=== PATIENT | male | born 1945 | race Caucasian/White ===

== ENCOUNTER 2020-11-09 14:00 | Outpatient (CLI) | payer MEDICARE, SELFPAY ==
--- NOTE | ~2020-11-09 | XR_ITS ---
XR chest 2V DATE: 11/09/2020 14:20 INDICATION: Cough. Chronic bronchitis. TECHNIQUE: 2 views COMPARISON: PA and lateral chest FINDINGS: Normal heart size. No hilar or mediastinal enlargement. There is mild infiltrate and/atelec tasis at the lung bases. The lungs are moderately hyperinflated. No pleural effusion or pulmonary vascular congestion or pneumothorax. IMPRESSION: Mild bibasilar infiltrate and/atelectasis Moderate hyperinflation Reviewed, dictated and finalized at location B.
== END 2020-11-09 14:01 | disposition home or self-care (01) ==
PROVIDERS: PCP Family Medicine; Visit Provider Nurse Practitioner Family
DX: R05 Cough (principal); R91.8 Other nonspecific abnormal finding of lung field
CPT/HCPCS: 71046

== ENCOUNTER 2020-11-19 15:19 | Outpatient (CLI) | payer MEDICARE, SELFPAY ==
--- NOTE | ~2020-11-19 | XR_ITS ---
EXAMINATION: XR chest 2V DATE: 11/19/2020 15:34 INDICATION: Cough. TECHNIQUE: Frontal and lateral views of the chest were obtained. COMPARISON: Chest 2 views 11/09/2020, CT abdomen and pelvis 06/11/2017 FINDINGS: There is a large hiatal hernia. There is mild atelectasis in the lower lung zones. No pleur al effusion or pneumothorax. The heart size is normal. Surgical clips in the right upper quadrant are likely from cholecystectomy. IMPRESSION: 1. Mild atelectasis in the lower lung zones. 2. Large hiatal hernia. Reviewed, dictated and finalized at location A.
== END 2020-11-19 15:20 | disposition home or self-care (01) ==
LOC: ANHIMG 15:22
PROVIDERS: PCP Family Medicine; Visit Provider Nurse Practitioner Family
DX: R05 Cough (principal); K44.9 Diaphragmatic hernia without obstruction or gangrene
CPT/HCPCS: 71046

== ENCOUNTER 2021-07-08 01:12 | Day surgery (SDC) | payer MEDICARE, SELFPAY ==
[2021-06-24 14:54] VITALS: BMI 32.8
[2021-07-08 09:43] VITALS: BP 161/85; RESP 18; TEMP 36.3; BMI 34.0
[2021-07-08 09:46] VITALS: BP 161/85; PULSE 107; RESP 18; TEMP 36.3; O2SAT 96
[2021-07-08] MEDS: LACTATED RINGERS 1,000 ML 150 ML IV CONT (10:00)
--- NOTE | 2021-07-08 10:00 | WPDHPUPDATE1 ---
History and Physical Update Update Date/Time: 07/08/21 10:00 History and Physical has been reviewed, including an updated exam of the patient. There are NO changes in the patient's condition. Risks, benefits, and alternatives have been discussed and questions answered. Patient agrees to proceed with procedure.
--- NOTE | 2021-07-08 10:32 | WPDANESEPPF ---
Anes - Initial Pre Proc Eval Procedure: Operation Date: 07/08/21 10:45 Proposed Procedures p Esophagogastroduodenoscopy - John Ramirez MD Date/Time: 07/08/21 10:32 Surgeon: John Ramirez MD Pre Op Diagnosis: GERD Patient Data Age: 75 Gender: M Height: 1.85 m Weight: 117 kg Last Vital Signs Temp 97.4 F L 07/08/21 09:46 Pulse 107 H 07/08/21 09:46 Resp 18 07/08/21 09:46 BP 161/85 H 07/08/21 09:46 Pulse Ox 96 07/08/21 09:46 Allergies Allergy/AdvReac Type Severity Reaction Status Date / Time Iodinated Contrast Media Allergy Unknown Unknown Verified 06/24/21 14:47 NSAIDS (Non-Steroidal Allergy Unknown Unknown Verified 06/24/21 14:47 Anti-Inflamma Home Medications Medication Instructions Recorded Confirmed Type albuterol sulfate 90 mcg/actuation 1 inhalation INHALATION Q4H PRN 09/25/19 07/08/21 Rx aerosol inhaler #6.7 gm apixaban 5 mg tablet 5 mg PO BID #60 tablet 09/25/19 06/24/21 Rx budesonide-formoterol HFA 160 2 puff INHALATION Q12H #10.2 gm 02/15/21 06/24/21 Rx mcg-4.5 mcg/actuation aerosol inhaler hydrocortisone 2.5 % topical 1 applic TOPICAL BID-TID PRN 04/28/21 06/24/21 Rx ointment #28.35 gm cholecalciferol (vitamin D3) 25 25 mcg PO DAILY 06/07/21 06/24/21 History mcg (1,000 unit) capsule folic acid 1 mg tablet 1 mg PO DAILY 06/07/21 06/24/21 History multivitamin 1 tablet PO DAILY 06/07/21 06/24/21 History pantoprazole 40 mg tablet,delayed 40 mg PO BID #180 tablet 06/16/21 06/24/21 Rx release Patient hx anesthesia problems: none Family hx anesthesia problems: none Results Review: All pre-operative results and documents have been reviewed as part of the pre-operative evaluation. 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 Informed Consent: The patient's anesthetic plan and its attendant risks and benefits were discussed with the patient/family/POA. Questions were solicited and answers provided to the satisfaction of the patient/family/POA.
[2021-07-08] MEDS: BENZOCAINE (*SP) 60 ML SPRAY CAN (HURRICAINE) 1 SPRAY MUCOUS MEM (10:47)
[2021-07-08 11:01] VITALS: BP 101/56; PULSE 79; RESP 21; O2SAT 97
[2021-07-08 11:11] VITALS: BP 109/68; PULSE 73; RESP 20; O2SAT 98
[2021-07-08 11:21] VITALS: BP 142/80; PULSE 69; RESP 13; O2SAT 100
== END 2021-07-08 11:54 | disposition home or self-care (01) ==
PROVIDERS: PCP Family Medicine; Visit Provider Internal Medicine Gastroenterology
PROC: 0DJ08ZZ Inspection of Upper Intestinal Tract, Via Natural or Artificial Opening Endoscopic (ICD-10-PCS; CPT 43235; principal; 2021-07-08 10:45)
DX: K21.9 Gastro-esophageal reflux disease without esophagitis (principal); K44.9 Diaphragmatic hernia without obstruction or gangrene; Q39.4 Esophageal web; K31.7 Polyp of stomach and duodenum; Z79.51 Long term (current) use of inhaled steroids; Z79.01 Long term (current) use of 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s; E66.9 Obesity, unspecified; Z68.34 Body mass index [BMI] 34.0-34.9, adult
CPT/HCPCS: 43450; 43251; 88305; J2704; J7120

== ENCOUNTER 2021-12-08 11:24 | Outpatient (CLI) | payer MEDICARE, SELFPAY ==
--- NOTE | ~2021-12-08 | CT_ITS ---
EXAMINATION: CT abdomen pelvis wo con DATE: 12/08/2021 12:47 INDICATION: Right lower quadrant abdominal pain. Diarrhea. TECHNIQUE: Computed tomography (CT) of the abdomen and pelvis was performed without intravenous contr ast (patient contrast allergy). Automated exposure control and iterative reconstruction technique fredi kelly. Exam dose: 1316.66 mGy-cm total exam DLP. COMPARISON: 06/2017 CT abdomen pelvis FINDINGS: There is discoid atelectasis and/or scarring at the lung bases, most prominent in the poste rior right lower lobe no pulmonary infiltrate or consolidation. Normal heart size. No pericardial or pleural effusion. Large sliding hiatal hernia. Status post cholecystectomy. Occasional hepatic and splenic calcified granulomas consistent with old granulomatous disease. No hep atic, splenic, pancreatic, adrenal or renal space-occupying mass lesion is detected. No urinary tract calculus or hydroureteronephrosis. There is normal caliber of the abdominal aorta, mild atherosclerotic calcification of the abdominal a pedro as well as iliac arteries. There is a left common and external iliac vein stent and an IVC filte r. No intraperitoneal or retroperitoneal or pelvic mass lesion or adenopathy or ascites. There is prostate enlargement. The urinary bladder is unremarkable. Status post appendectomy. Diverticulosis of left and right colon; no CT evidence of diverticulitis. N o bowel obstruction, bowel wall thickening, pneumatosis or intraperitoneal free air. Small fat-containing umbilical hernia. 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 Severe degenerative disc disease at L5-S1. Moderately severe degenerative disc disease and mild retrolisthesis at L1-2. No suspicious osteolytic or osteoblastic lesions. IMPRESSION: Status post cholecystectomy. 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 Reviewed, dictated and finalized at location B. IMPRESSION: Status post cholecystectomy. Large hiatal hernia IVC filter Left common and external iliac vein stent Prostate enlargement Diverticulosis of left and right colon; no evidence of diverticulitis Bilateral L5 pars interarticularis defects with associated grade 2 anterolisthe sis at L5-S1 Moderately severe degenerative disc disease at L1-2, severe degenerative diseas e at L5-S1
[2021-12-08 12:14] LABS: Basophils Percent Auto 0.6 % (0.2-1.2); Eosinophils Absolute Auto 0.1 K/mm3 (0-0.3); Eosinophils Percent Auto 2.2 % (0-4.4); Hematocrit 36.6 % (42.0-52.0); Hemoglobin 10.9 g/dL (14.0-18.0); Immature Granulocyte Absolute 0.01 K/mm3 (0.00-0.031); Immature Granulocyte Percent A 0.2 % (0-0.5); Lymphocytes Absolute Auto 1.36 K/mm3 (0.9-3.2); Mean Corpuscular HGB Conc 29.8 g/dl (32-36); Mean Corpuscular Hemoglobin 26.5 pg (26-34); Mean Corpuscular Volume 89.1 fl (80-100); Mean Platelet Volume 12.1 fl (7.4-10.4); Monocytes Absolute Auto 0.8 K/mm3 (0.1-0.6); Monocytes Percent Auto 15.5 % (2.6-8.5); Neutrophils Absolute Auto 2.7 K/mm3 (1.3-6.7); Neutrophils Percent Auto 54.5 % (45.5-73.1); Platelet Count Result 302 k/mm3 (150-375); Red Blood Count 4.11 M/mm3 (4.6-6.20); Red Cell Distribution Width 17.3 % (11.5-14.5)
[2021-12-08 12:23] LABS: Alanine Aminotransferase 30 U/L (6-50); Albumin Level 4.7 g/dL (3.5-5.1); Alkaline Phosphatase 83 U/L (38-126); Amylase 80 U/L (30-110); Anion Gap 6 mmol/L (8-16); Aspartate Amino Transferase 36 U/L (17-59); Blood Urea Nitrogen 17 mg/dL (9-20); Calcium 9.3 mg/dL (8.4-10.2); Carbon Dioxide 27 mmol/L (22-30); Chloride 104 mmol/L (98-107); Estimated Glomerular Filt Rate 54; Glucose 117 mg/dL (65-110); Lipase 251 U/L (23-300); Potassium 4.7 mmol/L (3.4-5.0); Sodium 137 mmol/L (137-145)
== END 2021-12-08 11:25 | disposition home or self-care (01) ==
PROVIDERS: PCP Family Medicine; Visit Provider Nurse Practitioner Family
DX: D64.9 Anemia, unspecified (principal); R10.31 Right lower quadrant pain; Z90.49 Acquired absence of other specified parts of digestive tract; Z95.828 Presence of other vascular implants and grafts; N40.0 Benign prostatic hyperplasia without lower urinary tract symptoms; M53.86 Other specified dorsopathies, lumbar region; M43.17 Spondylolisthesis, lumbosacral region; M51.36 Other intervertebral disc degeneration, lumbar region
CPT/HCPCS: 36415; 74176; 80053; 82150; 83690; 85025

== ENCOUNTER 2022-01-25 09:38 | Outpatient (CLI) | payer MEDICARE, SELFPAY ==
--- NOTE | 2022-01-25 11:30 | NEURO_ITS ---
Impression: # Complains of numbness. # Severe motor and sensory neuropathy. # Needle/EMG revealed minimal discrete motor unit potentials but no fibs of myotonia. Nerve Conduction Studies Anti Sensory Summary Table Stim Site NR Peak (ms) P-T Amp (?V) Site1 Site2 Delta-P (ms) Dist (cm) Regan (m/s) Left Sup Fibular Anti Sensory (Ant Lat Mall) NO RESPONSE 14 cm NR 14 cm Ant Lat Mall 16.0 Right Sup Fibular Anti Sensory (Ant Lat Mall) NO RESPONSE 14 cm NR 14 cm Ant Lat Mall 16.0 Left Sural Anti Sensory (Lat Mall) NO RESPONSE Calf NR Calf Lat Mall 16.0 Right Sural Anti Sensory (Lat Mall) NO RESPONSE Calf NR Calf Lat Mall 16.0 Motor Summary Table Stim Site NR Onset (ms) O-P Amp (mV) Site1 Site2 Delta-0 (ms) Dist (cm) Regan (m/s) Left Peroneal Motor (Vastus Med) NO RESPONSE Ankle NR Popit NR Right Peroneal Motor (Vastus Med) NO RESPONSE Ankle NR Popit NR Left Tibial Motor (Abd Castro Brev) NO RESPONSE Ankle NR Knee NR Right Tibial Motor (Abd Castro Brev) NO RESPONSE Ankle NR Knee NR F Wave Studies NR F-Lat (ms) L-R F-Lat (ms) Left Peroneal (Mrkrs) (EDB) NO RESPONSE NR Right Peroneal (Mrkrs) (EDB) DISPERSED RESPONSE NR Left Tibial (Mrkrs) (Abd Hallucis) NO RESPONSE NR Right Tibial (Mrkrs) (Abd Hallucis) NO RESPONSE NR EMG Side Muscle Nerve Root Ins Act Fibs Amp Dur Recrt Comment Right AntTibialis Dp Br Fibular L4-5 Nml Nml Decr Nml Reduced Right Gastroc Tibial S1-2 Nml Nml Decr Nml Reduced Right Fibularis Long Sup Br Fibular L5-S1 Nml Nml Decr Nml Reduced Right Flex Dig Long Tibial L5-S2 Nml Nml Decr Nml Reduced Right Ext Dig Brev Dp Br Fibular L5, S1 Nml Nml Decr Nml Reduced Left AntTibialis Dp Br Fibular L4-5 Nml Nml Decr Nml Reduced Left Gastroc Tibial S1-2 Nml Nml Decr Nml Reduced Left Fibularis Long Sup Br Fibular L5-S1 Nml Nml Decr Nml Reduced Left Flex Dig Long Tibial L5-S2 Nml Nml Decr Nml Reduced MTDD
== END 2022-01-25 09:39 | disposition home or self-care (01) ==
PROVIDERS: PCP Family Medicine; Visit Provider Physician Assistant Medical
DX: R20.0 Anesthesia of skin (principal); G62.9 Polyneuropathy, unspecified
CPT/HCPCS: 95886; 95910

== ENCOUNTER 2022-06-16 16:06 | Outpatient (CLI) | payer MEDICARE, SELFPAY ==
--- NOTE | ~2022-06-16 | XR_ITS ---
XR hip RT min 3V w AP pelvis DATE: 06/16/2022 16:35 INDICATION: Right hip pain TECHNIQUE: AP, lateral and cross table lateral views of the right hip. AP pelvis. COMPARISON: None FINDINGS: No pelvic fracture or bone destruction. No fracture or dislocation, periosteal reaction or avascular necrosis or bone destruction of hips. The pubic symphysis and sacroiliac joints are normal. IVC filter is noted. There is a stent of the left common and external iliac veins. IMPRESSION: IVC filter Left common and external iliac vein stent No significant abnormality of the pelvis or right hip Reviewed, dictated and finalized at location L. 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
== END 2022-06-16 16:07 | disposition home or self-care (01) ==
PROVIDERS: PCP Family Medicine; Visit Provider Family Medicine
DX: M25.551 Pain in right hip (principal)
CPT/HCPCS: 73502

== ENCOUNTER 2022-10-07 00:35 | Day surgery (SDC) | payer MEDICARE, SELFPAY ==
[2022-10-06 17:25] VITALS: BMI 28.3
[2022-10-07] VITALS (8 sets, daily range): BP systolic 121–134; BP diastolic 59–75; PULSE 65–81; RESP 14–20; TEMP 36.6; O2SAT 94–98; BMI 28.7
[2022-10-07 09:54] LABS: Hematocrit 37.7 % (42.0-52.0); Hemoglobin 11.8 g/dL (14.0-18.0); Immature Granulocyte Absolute 0.01 K/mm3 (0.00-0.031); Immature Granulocyte Percent A 0.6 % (0-0.5); Lymphocytes Absolute Auto 0.32 K/mm3 (0.9-3.2); Lymphocytes Percent Auto 20.4 % (18.3-44.2); Mean Corpuscular HGB Conc 31.3 g/dl (32-36); Mean Corpuscular Hemoglobin 28.5 pg (26-34); Mean Corpuscular Volume 91.1 fl (80-100); Mean Platelet Volume 11.5 fl (7.4-10.4); Monocytes Percent Auto 0.6 % (2.6-8.5); Neutrophils Absolute Auto 1.2 K/mm3 (1.3-6.7); Neutrophils Percent Auto 78.4 % (45.5-73.1); Platelet Count Result 308 k/mm3 (150-375); Red Blood Count 4.14 M/mm3 (4.6-6.20); Red Cell Distribution Width 16.2 % (11.5-14.5)
[2022-10-07 10:02] LABS: White Blood Count 1.6 K/mm3 (4.5-10.0)
[2022-10-07 10:04] LABS: Anion Gap 10 mmol/L (8-16); Blood Urea Nitrogen 21 mg/dL (9-20); Calcium 9.3 mg/dL (8.4-10.2); Carbon Dioxide 27 mmol/L (22-30); Chloride 103 mmol/L (98-107); Estimated CRCL calculation 48 ml/min; Estimated Glomerular Filt Rate 54; Glucose 165 mg/dL (65-110); Sodium 140 mmol/L (137-145)
--- NOTE | 2022-10-07 11:56 | P.PCNCC_ITS ---
Cardiac Cath Procedure Note Date of procedure:: 10/07/22 Performing physician:: Reggie Jackson MD Indication:: previous episodes of intermittent chest pain abnormal nuclear stress test Brief clinical history:: this is a 76-year-old patient with a history of right bundle branch block and PVCs who has been experiencing intermittent chest pain couple of months ago. A nuclear stress test was somewhat abnormal prompting recommendation for angiography. Procedure Procedure performed:: Coronary angiography left ventriculography Angio-Seal to the right femoral artery Sedation/Medication given:: fentanyl 50 mg Versed 2 mg case start time 11:35 a.m. case end time 11:52 a.m. sedation provided by Donna Woo RN, trained observer Access site:: right femoral artery Estimated blood loss:: 20 cc Procedure note:: patient was brought to the cardiac catheterization lab in the postabsorptive Condition where the right femoral triangle was prepped draped in the usual fashion. the patient received 1% lidocaine infiltrated locally. Using the modified Seldinger technique the right femoral artery was punctured and a 5 Fren ch vascular sheath was placed. The patient did receive Benadryl and prednisone yesterday and this morning preoperatively because of contrast allergy. Following arterial access being achieved a 5 [place] Islander FL4 catheter was used to engage and inject the left coronary artery in multiple projections and then a 5 [place] JR4 catheter was used to engage inject the right coronary artery in orthogonal projections. After this a 5 [place] pigtail catheter was used to measure left-sided hemodynamics and to perform a left ventriculogram in the STEPHEN projection. Lastly the catheters were removed an angiogram was the femoral artery through the sheath after which a 6 [place]er Angio-Seal device was deployed with a good hemostatic result. 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 Findings:: Hemodynamics: Central aortic pressure was 126 over 56 left ventricle 126/0 end-diastolic there is no gradient on pullback across the aortic valve. Left ventricle: The LV is normal in size there is concentric hypertrophy identified. Contractility is hyperdynamic with an ejection fraction I would visually estimate to be 75%. There were no regional wall motion abnormalities. The left main coronary artery is large in caliber and widely patent the left anterior descending is a moderate caliber artery extending down to the apex. The midportion of the LAD has minimal luminal irregularities but there are no flow-limiting lesions seen throughout the course of the LAD or its branches. The circumflex is a moderate caliber artery giving rise to the marginal branches the circumflex is angiographically unremarkable. The right coronary artery is large caliber and dominant to the posterior cir culation. The right coronary bifurcates high in the 2nd portion of the artery but otherwise is angiographically unremarkable. Conclusion:: 1. Right coronary dominant circulation with no angiographically severe significant coronary disease minimal plaquing was seen in the midportion of the LAD 2. left ventricular hypertrophy with hyperdynamic systolic contractility 3. based on these findings the chest pain symptoms appear to be noncardiac and the nuclear stress test appears to be a false-positive. Reggie Jackson MD FACC
== END 2022-10-07 14:55 | disposition home or self-care (01) ==
PROVIDERS: PCP Family Medicine; Visit Provider Specialist
PROC: 4A023N7 Measurement of Cardiac Sampling and Pressure, Left Heart, Percutaneous Approach (ICD-10-PCS; CPT 93452; principal; 2022-10-07 10:30)
DX: R94.39 Abnormal result of other cardiovascular function study (principal); R07.89 Other chest pain; I45.10 Unspecified right bundle-branch block; I49.3 Ventricular premature depolarization; I13.10 Hypertensive heart and chronic kidney disease without heart failure, with stage 1 through stage 4 chronic kidney disease, or unspecified chronic kidney disease; N18.9 Chronic kidney disease, unspecified; K21.9 Gastro-esophageal reflux disease without esophagitis; J42 Unspecified chronic bronchitis; Z79.01 Long term (current) use of 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s; Z79.51 Long term (current) use of inhaled steroids; G47.33 Obstructive sleep apnea (adult) (pediatric)
CPT/HCPCS: 36415; 80048; 85025; 93458; C1760; C1887; C1894; G0269; J1644; J2250; J3010

== ENCOUNTER 2024-01-03 17:27 | Inpatient (IN) | payer MEDICARE, SELFPAY ==
[2024-01-03] VITALS (8 sets, daily range): BP systolic 149–167; BP diastolic 76–84; PULSE 75–82; RESP 15–17; TEMP 37–37.1; O2SAT 98–100; BMI 29.7
--- NOTE | ~2024-01-03 | CT_ITS ---
EXAMINATION: CT abdomen pelvis wo con DATE: 01/03/2024 18:36 INDICATION: LLQ pain TECHNIQUE: Computed tomography (CT) of the abdomen and pelvis was performed without intravenous contr ast. Automated exposure control and iterative reconstruction technique were employed. The dose-length product was 982.15 mGy-cm. COMPARISON: 12/08/2021. FINDINGS: Lower thorax: Linear bibasilar opacities and groundglass opacities. Coronary artery calcifications. M itral and aortic valve calcification. Liver: Normal. Biliary/Gallbladder: Gallbladder is absent. No bile duct dilation. Pancreas: No mass or duct dilation. Spleen: Normal. Adrenals:No mass. Kidneys: No suspicious mass, obstructing stone, or hydronephrosis. GI tract: Large hiatal hernia. Short segment pericolonic wall thickening and surrounding stranding at the hepatic flexure, with an inflamed diverticulum. Mild peridiverticular inflammatory stranding in the mid sigmoid colon in the mid abdomen, to the left of midline. No abscess or free air. No small or large bowel dilation. Status post appendectomy. Mesentery/Peritoneum: No ascites, mass, or free air. Abdominal varices. IVC filter. Retroperitoneum: No mass. Atherosclerotic abdominal aortic and/or arterial calcifications. Left commo n and external iliac vein stent. Pelvis: The urinary bladder is partially distended. Enlarged prostate. Soft Tissues: Soft tissues and body wall unremarkable. Bones: No acute osseous finding. L5-S1 anterolisthesis secondary to bilateral pars defects. IMPRESSION: Bibasilar pulmonary opacities likely representing atelectasis/scar. Infection is not excluded. Multifocal, but otherwise uncomplicated appearing diverticulitis involving the hepatic flexure and mi d sigmoid. Inflammatory changes are more pronounced at the hepatic flexure. Reviewed, dictated and finalized at location K. IMPRESSION: Bibasilar pulmonary opacities likely representing atelectasis/scar. Infection i s not excluded. Multifocal, but otherwise uncomplicated appearing diverticulitis involving the hepatic flexure and mid sigmoid. Inflammatory changes are more pronounced at th e hepatic flexure.
[2024-01-03 18:10] LABS: Hemoglobin 13.2 g/dL (14.0-18.0); Mean Corpuscular HGB Conc 32.2 g/dl (32-36); Mean Corpuscular Hemoglobin 28.9 pg (26-34); Mean Corpuscular Volume 89.9 fl (80-100); Mean Platelet Volume 11.9 fl (7.4-10.4); Platelet Count Result 185 k/mm3 (150-375); Red Blood Count 4.56 M/mm3 (4.6-6.20); Red Cell Distribution Width 16.4 % (11.5-14.5)
[2024-01-03 18:13] LABS: Add Urine Microscopic? YES; Appearance Urine Clear (Clear); Bacteria Urine None Seen /hpf; Bilirubin Urine Negative (Negative); Blood Urine Negative (Negative); Color Urine Yellow (Yellow); Glucose Urine UA Negative (Negative); Ketones Urine Trace mg/dL (Negative); Leukocyte Esterase Ur Negative LEU/UL (Negative); Nitrate Urine Negative (Negative); Non Pathogenic Casts 0-2; Protein Urine Trace mg/dL (Negative); RBC Urine 0-2 /hpf (0-2); Specific Grav Ur 1.021 (1.001-1.035); Squamous Epithelial Cell Urine None Seen /hpf (Few); WBC Urine 0-5 /hpf (0-3); pH Urine 6.5 (5.0-9.0)
[2024-01-03 18:20] LABS: Alanine Aminotransferase 90 U/L (6-50); Albumin Level 4.5 g/dL (3.5-5.1); Alkaline Phosphatase 109 U/L (38-126); Anion Gap 8 mmol/L (4-12); Aspartate Amino Transferase 102 U/L (17-59); Bilirubin,Total 0.8 mg/dL (0.2-1.3); Blood Urea Nitrogen 16 mg/dL (9-20); Calcium 9.2 mg/dL (8.4-10.2); Carbon Dioxide 27 mmol/L (22-30); Chloride 104 mmol/L (98-107); Estimated CRCL calculation 53 ml/min; Estimated Glomerular Filt Rate > 60; Glucose 107 mg/dL (65-110); Lipase 134 U/L (23-300); Potassium 4.2 mmol/L (3.4-5.0); Sodium 139 mmol/L (137-145)
[2024-01-03 18:36] LABS: White Blood Count 1.8 K/mm3 (4.5-10.0)
[2024-01-03] MEDS: SODIUM CHLORIDE 0.9% IV 1,000 ML 999 ML IV CONT (18:38)
[2024-01-03] MEDS: MORPHINE SULFATE (*CRX) 4 MG/ML INJ 2 MG IV PUSH (18:38)
[2024-01-03 18:41] LABS: Lymphocytes Absolute Manual 0.73 K/mm3 (1.1-4.5); Monocytes Absolute Manual 0.12 K/mm3 (0.1-0.90); Monocytes Percent Manual 7 % (3-9); Neutrophils Percent Manual 52 % (46-73); Total Cells Counted 100
[2024-01-03 18:42] LABS: Anisocytosis 1+; Platelet Estimate Adequate (Adequate); Schistocytes None Seen
--- NOTE | 2024-01-03 19:33 | ED.ABDPAIN ---
HPI - Abdominal Pain General Chief Complaint: Abdominal Pain Stated Complaint: abd pain, fatigue Time Seen by Provider: 01/03/24 17:59 History of Present Illness HPI narrative: Patient is a 78-year-old male who presents ER with abdominal pain. Aching over the last 5 days. No fevers or chills or sweats. Denies diarrhea. Has history of diverticulitis. No blood in stool. No vomiting. Reports episode of low blood pressure and dizziness yesterday. Related Data Home Medications Medication Instructions Recorded Confirmed cholecalciferol (vitamin D3) 25 25 mcg PO QPM 06/07/21 11/28/23 mcg (1,000 unit) capsule folic acid 400 mcg tablet 0.4 mg PO DAILY 03/15/22 11/28/23 bimatoprost 0.01 % eye drops 1 drp EACH EYE HS 06/16/22 11/28/23 (Genieigan) Allergies Allergy/AdvReac Type Severity Reaction Status Date / Time Iodinated Contrast Media Allergy Intermediate Hives Verified 01/03/24 17:40 NSAIDS (Non-Steroidal AdvReac Unknown Unknown Verified 01/03/24 17:40 Anti-Inflamma Review of Systems Review of Systems: All systems reviewed & are unremarkable except as noted in HPI and below Constitutional: Constitutional: Denies chills, Reports fatigue and Denies fever(s) ENT: Reports system reviewed and no additional complaints, except as documented Cardiovascular: Cardiovascular: Reports no additional cardiovascular complaints Respiratory: Respiratory: Reports no additional respiratory complaints Gastrointestinal: Gastrointestinal: Reports abdominal pain, Reports constipation, Denies diarrhea, Denies nausea and Denies vomiting PMFSH Past Medical History Medical History Acquired hypercoagulable state BMI 30.0-30.9,adult Bursitis of right hip Cholecystectomy planned COPD (chronic obstructive pulmonary disease) COVID-19 Encounter for removal of skin lesion Exposure to COVID-19 virus Impaired functional mobility, balance, and endurance Mitral valve regurgitation Need for lipid screening Polyneuropathy Pronation of foot Raised seborrheic keratosis 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 Right bundle branch block Screening for prostate cancer Seborrheic keratoses, inflamed Sore in nose Surgical History Surgical History History of appendectomy Family History Family History Father Atherosclerosis Dementia Mother Dementia Sibling Dementia Acute myocardial infarction Other Family history of mental disorder Social History Social History Smoking status: Never smoker Second hand tobacco smoke exposure: Yes Alcohol intake: current Drinks per week: 1 Alcohol use details: 1/month Substance use: never Substance use type: does not use Do You Feel Safe in your Home?: Yes Lack of Transportation: No Lack of Food: Never True Current Housing: I Have Housing Concerned About Future Housing: No Difficulty Paying Gas/Electric Bills: No Difficulty Paying for Meds: No Currently Unemployed: No Education: Master's Degree or Higher Difficulty w/ Childcare or Family Care: No Living arrangements: with family Occupation/Education: retired 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 HEAD: Normocephalic, atraumatic. ENT: Mucous membranes moist. NECK: Supple. CHEST: Clear to auscultation. No respiratory distress. HEART: Regular rate and rhythm. Normal peripheral pulses. ABDOMEN: Soft, mild diffuse tenderness, nondistended. EXTREMITIES: Normal range of motion. No edema. SKIN: Warm, dry, no rash. NEURO: Alert and darshan
--- NOTE | 2024-01-03 20:10 | PM.IMHP ---
H&P: HPI History of Present Illness Date/Time: 01/03/24 20:10 Chief Complaint: abdominal pain Narrative: THIS IS A 78-YEAR-OLD MALE WITH PAST MEDICAL HISTORY SIGNIFICANT FOR RECURRENT DVT, ON CHRONIC ANTICOAGULATION, OBSTRUCTIVE SLEEP APNEA, COPD. PATIENT COMES TO THE EMERGENCY ROOM DUE TO LEFT LOWER QUADRANT PAIN FOR THE LAST 3-4 DAYS, HAS HAD LOOSE STOOLS, NO BRIGHT RED BLOOD PER RECTUM OR MELENA, NO HEMATEMESIS, NO COFFEE-GROUND EMESIS, NO NAUSEA, NO VOMITING HAS HAD GOOD PER ORALLY INTAKE, DENIES ANY FEVERS RIGORS OR CHILLS. PAIN IS CRAMPING IN NATURE RATES IT AT 8 OF 10 IN INTENSITY RELIEVED BY PAIN MEDICATION. PRELIMINARY WORKUP WAS SIGNIFICANT FOR CT OF ABDOMEN AND PELVIS WITH DIVERTICULITIS CBC WAS SIGNIFICANT FOR A WBC OF 1.2. PATIENT HAS BEEN ADMITTED FOR FURTHER EVALUATION MANAGEMENT AND TREATMENT. EXAMINATION: CT abdomen pelvis wo con DATE: 01/03/2024 18:36 INDICATION: LLQ pain TECHNIQUE: Computed tomography (CT) of the abdomen and pelvis was performed without intravenous contrast. Automated exposure control and iterative reconstruction technique were employed. The dose-length product was 982.15 mGy-cm. COMPARISON: 12/08/2021. FINDINGS: Lower thorax: Linear bibasilar opacities and groundglass opacities. Coronary artery calcifications. Mitral and aortic valve calcification. Liver: Normal. Biliary/Gallbladder: Gallbladder is absent. No bile duct dilation. Pancreas: No mass or duct dilation. Spleen: Normal. Adrenals:No mass. Kidneys: No suspicious mass, obstructing stone, or hydronephrosis. GI tract: Large hiatal hernia. Short segment pericolonic wall thickening and surrounding stranding at the hepatic flexure, with an inflamed diverticulum. Mild peridiverticular inflammatory stranding in the mid sigmoid colon in the mid abdomen, to the left of midline. No abscess or free air. No small or large bowel dilation. Status post appendectomy. Mesentery/Peritoneum: No ascites, mass, or free air. Abdominal varices. IVC filter. Retroperitoneum: No mass. Atherosclerotic abdominal aortic and/or arterial calcifications. Left common and external iliac vein stent. Pelvis: The urinary bladder is partially distended. Enlarged prostate. Soft Tissues: Soft tissues and body wall unremarkable. Bones: No acute osseous finding. L5-S1 anterolisthesis secondary to bilateral pars defects. IMPRESSION: Bibasilar pulmonary opacities likely representing atelectasis/scar. Infection is not excluded. Multifocal, but otherwise uncomplicated appearing diverticulitis involving the hepatic flexure and mid sigmoid. Inflammatory changes are more pronounced at the hepatic flexure. 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
[2024-01-03] MEDS: PIPERACILLN/TAZ 3.375GM/NS50ML 3.375 GM/50 ML BAG IVPB (20:37)
[2024-01-03 20:49] LABS: Lactic Acid Reflex 1.5 mmol/L (0.7-2.0)
--- NOTE | 2024-01-03 21:00 | ADMGEN ---
This patient, Russ Kern, was admitted to [facility] Surg Room 304-02. Patient/family oriented to hospital policies and general routines including ID bracelet, bed and alarms, visiting hours, pain management, procedures, bathroom and other care routines, personal items, smoking policy, room service/diet, and visiting hours. Information on how to activate the Rapid Response Team has been discussed. Patient/Family are encouraged to report perceived risks to care and to ask questions if they do not understand what they are told or what they should do.
[2024-01-04 05:21] VITALS: BP 116/70; PULSE 77; RESP 18; TEMP 37.1; O2SAT 96
[2024-01-04] MEDS: PIPERACILLN/TAZ 3.375GM/NS50ML 3.375 GM/50 ML BAG IVPB ×4 (06:36→23:23)
[2024-01-04] MEDS: PANTOPRAZOLE 40 MG TABLET PO (09:02)
[2024-01-04] MEDS: APIXABAN 5 MG TABLET PO ×2 (09:02→20:09)
[2024-01-04 09:07] LABS: Basophils Percent Auto 0.5 % (0.2-1.2); Eosinophils Percent Auto 1.5 % (0-4.4); Hematocrit 39.1 % (42.0-52.0); Hemoglobin 12.5 g/dL (14.0-18.0); Immature Granulocyte Absolute 0.06 K/mm3 (0.00-0.031); Immature Granulocyte Percent A 3.1 % (0-0.5); Lymphocytes Absolute Auto 0.71 K/mm3 (0.9-3.2); Lymphocytes Percent Auto 36.6 % (18.3-44.2); Mean Corpuscular Hemoglobin 28.7 pg (26-34); Mean Corpuscular Volume 89.7 fl (80-100); Mean Platelet Volume 12.4 fl (7.4-10.4); Monocytes Absolute Auto 0.3 K/mm3 (0.1-0.6); Monocytes Percent Auto 13.4 % (2.6-8.5); Neutrophils Absolute Auto 0.9 K/mm3 (1.3-6.7); Neutrophils Percent Auto 44.9 % (45.5-73.1); Platelet Count Result 168 k/mm3 (150-375); Red Blood Count 4.36 M/mm3 (4.6-6.20); Red Cell Distribution Width 16.4 % (11.5-14.5)
[2024-01-04 09:20] LABS: Alanine Aminotransferase 73 U/L (6-50); Albumin Level 3.7 g/dL (3.5-5.1); Alkaline Phosphatase 102 U/L (38-126); Anion Gap 8 mmol/L (4-12); Aspartate Amino Transferase 48 U/L (17-59); Bilirubin,Total 1.4 mg/dL (0.2-1.3); Blood Urea Nitrogen 13 mg/dL (9-20); Carbon Dioxide 26 mmol/L (22-30); Chloride 104 mmol/L (98-107); Estimated CRCL calculation 53 ml/min; Estimated Glomerular Filt Rate > 60; Glucose 101 mg/dL (65-110); Potassium 4.1 mmol/L (3.4-5.0); Sodium 138 mmol/L (137-145)
[2024-01-04 09:31] LABS: White Blood Count 1.9 K/mm3 (4.5-10.0)
[2024-01-04 14:00] VITALS: BP 109/54; PULSE 68; RESP 14; TEMP 36.7; O2SAT 97
--- NOTE | 2024-01-04 14:37 | PM.IMPN ---
Progress Note: A&P Assessment and Plan (1) Diverticulitis: Code(s): K57.92 - Diverticulitis of intestine, part unspecified, without perforation or abscess without bleeding Status: Acute Assessment and Plan: - receiving Zosyn - Blood cultures no growth to date. - encourage hydration - tolerating food well. (2) Chronic leukopenia: Code(s): D72.819 - Decreased white blood cell count, unspecified Status: Chronic Assessment and Plan: - WBC 1.9. 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 type: unspecified Qualified Code(s): J43.9 - Emphysema, unspecified Code(s): J44.9 - Chronic obstructive pulmonary disease, unspecified Status: Acute Assessment and Plan: -breathing treatments as needed (5) Chronic kidney disease, stage 3a: Code(s): N18.31 - Chronic kidney disease, stage 3a Status: Acute Assessment and Plan: - improving 01/04/24: BUN 13, Creatinine 1.10, & GFR >60 (6) QAMAR (obstructive sleep apnea): Code(s): G47.33 - Obstructive sleep apnea (adult) (pediatric) Status: Acute Assessment and Plan: -CPAP at nighttime (7) Gastroesophageal reflux disease: Code(s): K21.9 - Gastro-esophageal reflux disease without esophagitis Status: Acute Assessment and Plan: -PPI Subjective Date/time seen: 01/04/24 14:37 Interval history: Patient is a 78 year old male. Patient reports abdominal pain that is a 2 , constant, cramping, and aching. Patient reports tolerating breakfast well this morning. Patient denies chest pain, palpitations, shortness of breath, nausea, or vomiting. at bedside. Review of Systems Review of Systems: All systems reviewed & are unremarkable except as noted in HPI and below Exam Const: General: comfortable and no acute distress Eyes: Sclera: sclerae normal Neck: Neck: supple Resp: Effort & Inspection: normal respiratory effort Auscultation: clear to auscultation bilaterally Cardio: Rate: regular rate Rhythm: regular rhythm GI: GI Palp: Yes Soft to palpation Auscultation: normal bowel sounds Skin: General skin exam: no rashes or lesions noted Extrem: General: normal to inspection Psych: Mental Status: mental status grossly normal Affect: normal affect Objective Data Vital Signs Vital Signs: Vital Signs - 24 hr 01/03/24 17:35 01/03/24 18:39 01/03/24 19:15 Temperature 98.7 F Pulse Rate 82 75 Respiratory Rate 16 15 Blood Pressure 160/84 H Pulse Oximetry 99 99 100 Oxygen Delivery Room Air 01/03/24 19:30 01/03/24 20:02 01/03/24 20:16 Temperature Pulse Rate Respiratory Rate Blood Pressure 167/81 H 156/78 H Pulse Oximetry 100 100 98 Oxygen Delivery 01/03/24 20:31 01/03/24 21:26 01/04/24 05:21 Temperature 98.6 F 98.7 F Pulse Rate 82 80 77 Respiratory Rate 17 16 18 Blood Pressure 149/76 H 152/79 H 116/70 Pulse Oximetry 98 100 96 Oxygen Delivery 01/04/24 08:00 Temperature Pulse Rate Respiratory Rate Blood Pressure Pulse Oximetry Oxygen Delivery Room Air Intake/Output Intake/Output: Intake & Output 01/01/24 01/02/24 01/03/24 01/04/24 23:59 23:59 23:59 23:59 Intake Total 1050 510 Balance 1050 510 Meds/Results Medications: Active Medications Generic Name Dose Route Start Last Admin Trade Nam
[2024-01-04] MEDS: LATANOPROST 0.005% OP SOLN 2.5 ML BTL 1 DROP EACH EYE (20:09)
[2024-01-04 20:46] VITALS: BP 126/74; PULSE 81; RESP 16; TEMP 36.7; O2SAT 94
[2024-01-05] MEDS: PIPERACILLN/TAZ 3.375GM/NS50ML 3.375 GM/50 ML BAG IVPB ×4 (05:20→23:40)
[2024-01-05 05:44] VITALS: BP 124/74; PULSE 59; RESP 16; TEMP 36.4; O2SAT 98
[2024-01-05 06:28] LABS: Basophils Percent Auto 0.6 % (0.2-1.2); Eosinophils Percent Auto 2.6 % (0-4.4); Hematocrit 37.7 % (42.0-52.0); Hemoglobin 11.9 g/dL (14.0-18.0); Immature Granulocyte Absolute 0.01 K/mm3 (0.00-0.031); Immature Granulocyte Percent A 0.6 % (0-0.5); Lymphocytes Absolute Auto 0.99 K/mm3 (0.9-3.2); Lymphocytes Percent Auto 63.5 % (18.3-44.2); Mean Corpuscular HGB Conc 31.6 g/dl (32-36); Mean Corpuscular Hemoglobin 29.2 pg (26-34); Mean Corpuscular Volume 92.4 fl (80-100); Mean Platelet Volume 12.5 fl (7.4-10.4); Monocytes Absolute Auto 0.1 K/mm3 (0.1-0.6); Monocytes Percent Auto 8.3 % (2.6-8.5); Neutrophils Absolute Auto 0.4 K/mm3 (1.3-6.7); Neutrophils Percent Auto 24.4 % (45.5-73.1); Platelet Count Result 167 k/mm3 (150-375); Red Blood Count 4.08 M/mm3 (4.6-6.20); Red Cell Distribution Width 16.4 % (11.5-14.5)
[2024-01-05 06:32] LABS: Alanine Aminotransferase 109 U/L (6-50); Albumin Level 3.5 g/dL (3.5-5.1); Alkaline Phosphatase 108 U/L (38-126); Anion Gap 6 mmol/L (4-12); Aspartate Amino Transferase 74 U/L (17-59); Bilirubin,Total 0.9 mg/dL (0.2-1.3); Blood Urea Nitrogen 14 mg/dL (9-20); Calcium 8.9 mg/dL (8.4-10.2); Carbon Dioxide 28 mmol/L (22-30); Chloride 106 mmol/L (98-107); Estimated CRCL calculation 49 ml/min; Estimated Glomerular Filt Rate 58; Glucose 101 mg/dL (65-110); Potassium 4.3 mmol/L (3.4-5.0); Sodium 140 mmol/L (137-145)
[2024-01-05 07:31] LABS: White Blood Count 1.6 K/mm3 (4.5-10.0)
[2024-01-05] MEDS: PANTOPRAZOLE 40 MG TABLET PO (08:07)
[2024-01-05] MEDS: APIXABAN 5 MG TABLET PO ×2 (08:07→20:40)
[2024-01-05 09:19] VITALS: O2SAT 96
--- NOTE | 2024-01-05 13:54 | PM.IMPN ---
Progress Note: A&P Assessment and Plan (1) Diverticulitis: Code(s): K57.92 - Diverticulitis of intestine, part unspecified, without perforation or abscess without bleeding Status: Acute Assessment and Plan: - receiving Zosyn - Blood cultures no growth to date. - encourage hydration - tolerating food well. (2) Chronic leukopenia: Code(s): D72.819 - Decreased white blood cell count, unspecified Status: Chronic Assessment and Plan: - WBC 1.6 today - Neutropenic precautions - Follow up in the outpatient setting - Foreclosure Paralegal/Oncologist consult ordered. 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 type: unspecified Qualified Code(s): J43.9 - Emphysema, unspecified Code(s): J44.9 - Chronic obstructive pulmonary disease, unspecified Status: Acute Assessment and Plan: -breathing treatments as needed (5) Chronic kidney disease, stage 3a: Code(s): N18.31 - Chronic kidney disease, stage 3a Status: Acute Assessment and Plan: - improving 01/04/24: BUN 13, Creatinine 1.10, & GFR >60 01/05/24: BUN 14, Creatinine 1.20, & GFR 58 (6) QAMAR (obstructive sleep apnea): Code(s): G47.33 - Obstructive sleep apnea (adult) (pediatric) Status: Acute Assessment and Plan: -CPAP at nighttime (7) Gastroesophageal reflux disease: Code(s): K21.9 - Gastro-esophageal reflux disease without esophagitis Status: Acute Assessment and Plan: -PPI Subjective Date/time seen: 01/05/24 13:54 Interval history: Patient denies abdominal pain, nausea, vomiting, headache, and dizziness. Reports tolerating meals well. Patient concerned about low white blood cells and would like to see electroless plater while here. Review of Systems Review of Systems: All systems reviewed & are unremarkable except as noted in HPI and below Exam Const: General: comfortable and no acute distress Eyes: Sclera: sclerae normal Resp: Effort & Inspection: normal respiratory effort Auscultation: clear to auscultation bilaterally Cardio: Rate: regular rate Rhythm: regular rhythm GI: GI Palp: Yes Soft to palpation Auscultation: normal bowel sounds Skin: General skin exam: no rashes or lesions noted Extrem: General: normal to inspection Psych: Mental Status: mental status grossly normal Affect: normal affect Objective Data Vital Signs Vital Signs: Vital Signs - 24 hr 01/04/24 14:00 01/04/24 20:46 01/05/24 05:44 Temperature 98.0 F 98.1 F 97.5 F L Pulse Rate 68 81 59 L Respiratory Rate 14 16 16 Blood Pressure 109/54 L 126/74 124/74 Pulse Oximetry 97 94 98 Oxygen Delivery 01/05/24 08:00 01/05/24 09:19 Temperature Pulse Rate Respiratory Rate Blood Pressure Pulse Oximetry 96 Oxygen Delivery Room Air Room Air Intake/Output Intake/Output: Intake & Output 01/02/24 01/03/24 01/04/24 01/05/24 23:59 23:59 23:59 23:59 Intake Total 1050 1258 540 Balance 1050 1258 540 Meds/Results Medications: Active Medications Generic Name Dose Route Start Last Admin Trade Name Freq PRN Reason Stop Dose Admin Acetaminophen 1,000 mg 01/03/24 21:11 Acetaminophen 500 Mg Tablet PO Q6H PRN Mild Pain (1-3) or Fever Hydrocodone Bitart/Acetaminophen 1 tab 01/03/24 19:53 Hydrocodone/Acetaminophen (*Crx) 5-325 Mg Tablet PO Q4H PRN Pain Rated 4-6 Al Hydrox/Mg Hydrox/Simethicone 30 ml 01/03/24 21:11 Mag Hydrox/Al Hydrox/S
[2024-01-05 14:00] VITALS: BP 113/63; PULSE 64; RESP 14; TEMP 36.2; O2SAT 97
--- NOTE | 2024-01-05 17:58 | PDONCCN ---
[facility] - Date of Consult Date/Time: 01/05/24 17:58 Requesting Physician: Deepika Limon MD Primary Care Provider: Timothy Banks MD - Consult Narrative Reason for consult: Leukopenia Narrative: Russ Kern is a 78 year old male with history of chronic leukopenia diagnosed in [address] Diana at [facility]. Patient also has a history of recurrent DVT on chronic anticoagulation with Eliquis, obstructive sleep apnea and COPD came into the ED left lower quadrant abdominal pain for 3-4 days duration along some loose stools. He was diagnosed with diverticulitis. Labs showed WBC count of 1.8. His ANC dropped to 400. CT abdomen pelvis showed normal liver and spleen. There was pulmonary opacities could be infection. There was multifocal diverticulitis. Patient was started on Zosyn. He is feeling better white blood cell count has dropped further. Not told about the reason for his leukopenia and did not have bone marrow biopsy done previously. Review of Systems - Review of Systems All systems reviewed & are unremarkable except as noted in [facility] and [facility] Medical History: Medical History (Last Reviewed 11/28/23 @ 08:39 by Yaron Roach MD) Acquired hypercoagulable state BMI 30.0-30.9,adult Bursitis of right hip Cholecystectomy planned COPD (chronic obstructive pulmonary disease) COVID-19 Encounter for removal of skin lesion Exposure to COVID-19 virus Impaired functional mobility, balance, and endurance Mitral valve regurgitation Need for lipid screening Polyneuropathy Pronation of foot Raised seborrheic keratosis 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 Right bundle branch block Screening for prostate cancer Seborrheic keratoses, inflamed Sore in nose Surgical History: Surgical History (Last Reviewed 11/28/23 @ 08:39 by Yaron Roach MD) History of appendectomy Family History: Family History (Last Updated 01/03/24 @ 21:52 by Hailey Neal RN) Father Atherosclerosis Dementia Coronary artery disease Hypertension Mother Dementia Sibling Acute myocardial infarction Dementia Other Family history of mental disorder - Social History Social History: Social History (Last Reviewed 11/28/23 @ 08:39 by Yaron Roach MD) Gender Identity: Gender identity (if verbalized by the patient): Male Alcohol Use: Alcohol intake: never Drinks per week: 1 Alcohol use details: 1/month Substance Use: Substance use: never Substance use type: does not use Others: Spiritual care concerns: No Living Arrangements: Living arrangements: with family Oppucation/Education: Occupation/Education: retired Smoking Status: Smoking status: Never smoker Second hand tobacco smoke exposure: Yes Social Determinants of Health: Do You Feel Safe in your Home?: Yes Has the Lack of Transportation Kept You From Medical Appointments or From Getting Medications?: No Within the Past 12 Months, Were You Worried Whether Your Food Would Run Out Before You Got Money to Buy More?: Never True What is Your Housing Situation Today?: I Have Housing Are You Worried That in the Next 2 Months, You May Not Have Your Own Housing to Live In?: No Do You Have Trouble Paying Your Heating Or Electricity Bill?: No Do You Have Trouble Paying For Medicines?: No Are You Currently Unemployed and Looking for Work?: No Highest Level of Education Completed: Master's Degree or Higher Do You Have Trouble With Childcare or the Care of a Family Member?: No Exam - Vital Signs Vital Signs - 24 hr 01/04/24 20:46 01/05/24 05:44 01/05/24 08:00 Temperature 36.7 C 36.4 C L Pulse Rate 81 59 L Respiratory Rate 16 16 Blood Pressure 126/74 124/74 Pulse Oximetry 94 98 Oxygen Delivery Room Air 01/05/24 09:19 01/05/24 14:00 Temperature 36.2 C L
[2024-01-05 19:17] LABS: Iron 36 ug/dL (49-181)
[2024-01-05 19:26] LABS: Percent Iron Saturation 13 % (20-50)
[2024-01-05 20:35] LABS: Folic Acid > 20.0 ng/mL (2.76->20)
[2024-01-05] MEDS: LATANOPROST 0.005% OP SOLN 2.5 ML BTL 1 DROP EACH EYE (20:40)
[2024-01-05 20:45] VITALS: BP 138/78; PULSE 63; RESP 12; TEMP 36.6; O2SAT 96
[2024-01-06] VITALS (10 sets, daily range): BP systolic 101–121; BP diastolic 54–75; PULSE 57–108; RESP 16–18; TEMP 36.3–37.7; O2SAT 95–99
[2024-01-06] MEDS: PIPERACILLN/TAZ 3.375GM/NS50ML 3.375 GM/50 ML BAG IVPB ×4 (05:55→23:56)
[2024-01-06 06:24] LABS: Basophils Percent Auto 1.3 % (0.2-1.2); Eosinophils Absolute Auto 0.1 K/mm3 (0-0.3); Eosinophils Percent Auto 3.4 % (0-4.4); Hematocrit 37.2 % (42.0-52.0); Hemoglobin 11.8 g/dL (14.0-18.0); Immature Granulocyte Absolute 0.01 K/mm3 (0.00-0.031); Immature Granulocyte Percent A 0.7 % (0-0.5); Lymphocytes Absolute Auto 0.84 K/mm3 (0.9-3.2); Lymphocytes Percent Auto 56.4 % (18.3-44.2); Mean Corpuscular HGB Conc 31.7 g/dl (32-36); Mean Corpuscular Hemoglobin 28.4 pg (26-34); Mean Corpuscular Volume 89.6 fl (80-100); Mean Platelet Volume 12.3 fl (7.4-10.4); Monocytes Absolute Auto 0.2 K/mm3 (0.1-0.6); Monocytes Percent Auto 10.7 % (2.6-8.5); Neutrophils Absolute Auto 0.4 K/mm3 (1.3-6.7); Neutrophils Percent Auto 27.5 % (45.5-73.1); Platelet Count Result 174 k/mm3 (150-375); Red Blood Count 4.15 M/mm3 (4.6-6.20); Red Cell Distribution Width 16.2 % (11.5-14.5)
[2024-01-06 06:42] LABS: Alanine Aminotransferase 93 U/L (6-50); Albumin Level 3.6 g/dL (3.5-5.1); Alkaline Phosphatase 113 U/L (38-126); Anion Gap 8 mmol/L (4-12); Aspartate Amino Transferase 47 U/L (17-59); Bilirubin,Total 0.7 mg/dL (0.2-1.3); Blood Urea Nitrogen 14 mg/dL (9-20); Carbon Dioxide 26 mmol/L (22-30); Chloride 107 mmol/L (98-107); Estimated CRCL calculation 49 ml/min; Estimated Glomerular Filt Rate 58; Glucose 105 mg/dL (65-110); Sodium 141 mmol/L (137-145)
[2024-01-06 07:36] LABS: White Blood Count 1.5 K/mm3 (4.5-10.0)
[2024-01-06] MEDS: FILGRASTIM-SNDZ 480 MCG/0.8 ML SYRINGE SUB-Q (08:44)
[2024-01-06] MEDS: PANTOPRAZOLE 40 MG TABLET PO (08:44)
[2024-01-06] MEDS: APIXABAN 5 MG TABLET PO ×2 (08:44→20:10)
--- NOTE | 2024-01-06 15:52 | PM.IMPN ---
Progress Note: A&P Assessment and Plan (1) Diverticulitis: Code(s): K57.92 - Diverticulitis of intestine, part unspecified, without perforation or abscess without bleeding Status: Acute Assessment and Plan: - receiving Zosyn - Blood cultures no growth to date. - encourage hydration - tolerating food well. (2) Chronic leukopenia: Code(s): D72.819 - Decreased white blood cell count, unspecified Status: Chronic Assessment and Plan: - WBC 1.5 today - Neutropenic precautions - Follow up in the outpatient setting - Emergency Spill Response Technician/Oncologist consult completed yesterday with Dr. Singh. - Patient ordered to start Neupogen injections (injection started this morning) to get WBC count more than 5,000 than outpatient will need a bone marrow biopsy. 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 type: unspecified Qualified Code(s): J43.9 - Emphysema, unspecified Code(s): J44.9 - Chronic obstructive pulmonary disease, unspecified Status: Acute Assessment and Plan: -breathing treatments as needed (5) Chronic kidney disease, stage 3a: Code(s): N18.31 - Chronic kidney disease, stage 3a Status: Acute Assessment and Plan: 01/04/24: BUN 13, Creatinine 1.10, & GFR >60 01/05/24: BUN 14, Creatinine 1.20, & GFR 58 01/06/24: BUN 14, Creatinine 1.20, & GFR 58 (6) QAMAR (obstructive sleep apnea): Code(s): G47.33 - Obstructive sleep apnea (adult) (pediatric) Status: Acute Assessment and Plan: -CPAP at nighttime (7) Gastroesophageal reflux disease: Code(s): K21.9 - Gastro-esophageal reflux disease without esophagitis Status: Acute Assessment and Plan: -PPI Subjective Date/time seen: 01/06/24 15:52 Interval history: Patient denies abdominal pain, nausea, vomiting, headache, and dizziness. Reports tolerating meals well. Patient concerned about white blood cells being 1.5 and stated that he started the injections that Dr. Singh ordered to increase his white blood cells. Patient reports that he really likes Dr. Singh and plans to start seeing him for now on. Review of Systems Review of Systems: All systems reviewed & are unremarkable except as noted in HPI and below Exam Const: General: comfortable and no acute distress Eyes: Sclera: sclerae normal Resp: Effort & Inspection: normal respiratory effort Auscultation: clear to auscultation bilaterally Cardio: Rate: regular rate Rhythm: regular rhythm GI: GI Palp: Yes Soft to palpation Auscultation: normal bowel sounds Skin: General skin exam: no rashes or lesions noted Extrem: General: normal to inspection Psych: Mental Status: mental status grossly normal Affect: normal affect Objective Data Vital Signs Vital Signs: Vital Signs - 24 hr 01/05/24 20:45 01/05/24 20:00 01/06/24 06:00 Temperature 97.8 F 97.3 F L Pulse Rate 63 66 Respiratory Rate 12 16 Blood Pressure 138/78 121/75 Pulse Oximetry 96 95 Oxygen Delivery Room Air 01/06/24 08:00 01/06/24 14:00 Temperature 97.5 F L Pulse Rate 57 L Respiratory Rate 16 Blood Pressure 101/71 Pulse Oximetry 96 Oxygen Delivery Room Air Intake/Output Intake/Output: Intake & Output 01/03/24 01/04/24 01/05/24 01/06/24 23:59 23:59 23:59 23:59 Intake Total 1050 1258 1117 740 Balance 1050 1258 1117 740 Meds/Results Medications: Active Medications Generic Name Dose Route Start Last Admin Trade Name Freq
--- NOTE | 2024-01-06 16:44 | ECG_ITS ---
Test Date: 2024-01-06 16:53:59 Measurements Intervals [place] Rate: 80 P: 91 NC: 114 QRS: 46 QRSD: 145 T: 120 QT: 414 QTc: 480 Interpretive Statements SINUS RHYTHM WITH MARKED SINUS ARRHYTHMIA WITH SHORT NC INTERVAL RIGHT BUNDLE BRANCH BLOCK ST DEVIATION AND MODERATE T-WAVE ABNORMALITY, CONSIDER ANTEROLATERAL ISCHEMIA ABNORMAL ECG No previous ECG available for comparison Electronically Signed On 01-07-2024 09:02:45 CDT by Chapincito Grimm D.O.
--- NOTE | 2024-01-06 16:46 | PC.NURSE ---
notified provider about pt having chest pain/pressure. vitals were obtained. vitals read normal and read to provider. provider ordered ECG. no new orders at this time.
[2024-01-06] MEDS: ASPIRIN 325 MG TABLET (17:19)
[2024-01-06] MEDS: METOPROLOL TARTRATE 12.5 MG TABLET PO (17:27)
[2024-01-06 17:41] LABS: D Dimer 0.87 ug/mL (<0.48)
--- NOTE | 2024-01-06 17:47 | ECG_ITS ---
Test Date: 2024-01-06 17:56:01 Measurements Intervals [place] Rate: 90 P: 0 KS: 0 QRS: 36 QRSD: 127 T: 200 QT: 348 QTc: 426 Interpretive Statements SINUS RHYTHM WITH SINUS ARRHYTHMIA FREQUENT ATRIAL PREMATURE COMPLEXES RIGHT BUNDLE BRANCH BLOCK ST-T WAVE ABNORMALITY IN ANTEROLATERAL LEADS- CONSIDER ISCHEMIA BASELINE WANDER- V4-V6 ABNORMAL ECG Compared to ECG 01/06/2024 16:53:59 ATRIAL PREMATURE COMPLEXES NOW PRESENT Electronically Signed On 01-07-2024 08:55:09 CDT by Chapincito Grimm D.O.
[2024-01-06 17:51] LABS: Troponin I < 0.012 ng/mL (0.000-0.034)
[2024-01-06] MEDS: METOPROLOL TARTRATE INJ 5 MG/5 ML VIAL IV PUSH (18:53)
[2024-01-06] MEDS: LATANOPROST 0.005% OP SOLN 2.5 ML BTL 1 DROP EACH EYE (20:10)
[2024-01-06 20:56] LABS: Troponin I 0.015 ng/mL (0.000-0.034)
--- NOTE | 2024-01-06 21:02 | PC.NURSE ---
This patient, Russ Kern, was transferred to IMU on 01/06/24 at 2102. Personal belongings sent with patient. Report given to KEVIN Alexandre. Appropriate documentation sent with patient. Patient Alert and Orientated on Room and transferred on telemetry. with Patient
--- NOTE | 2024-01-06 21:17 | PC.NURSE ---
This patient, Russ Kern, was received from [[id number] ] on 01/06/24 at 2111. Patient/family oriented to unit policies and routines
[2024-01-06] MEDS: METOPROLOL TARTRATE 25 MG TABLET PO (21:32)
[2024-01-07] VITALS (17 sets, daily range): BP systolic 109–132; BP diastolic 55–93; PULSE 57–64; RESP 12–18; TEMP 36.1–36.7; O2SAT 94–100
[2024-01-07 00:06] LABS: Troponin I 0.019 ng/mL (0.000-0.034)
[2024-01-07 04:37] LABS: Basophils Percent Auto 0.2 % (0.2-1.2); Eosinophils Absolute Auto 0.1 K/mm3 (0-0.3); Eosinophils Percent Auto 0.5 % (0-4.4); Hematocrit 37.7 % (42.0-52.0); Hemoglobin 11.9 g/dL (14.0-18.0); Immature Granulocyte Absolute 0.25 K/mm3 (0.00-0.031); Lymphocytes Absolute Auto 1.22 K/mm3 (0.9-3.2); Lymphocytes Percent Auto 9.6 % (18.3-44.2); Mean Corpuscular HGB Conc 31.6 g/dl (32-36); Mean Corpuscular Hemoglobin 28.3 pg (26-34); Mean Corpuscular Volume 89.5 fl (80-100); Mean Platelet Volume 12.3 fl (7.4-10.4); Monocytes Absolute Auto 0.3 K/mm3 (0.1-0.6); Monocytes Percent Auto 2.5 % (2.6-8.5); Neutrophils Absolute Auto 10.9 K/mm3 (1.3-6.7); Neutrophils Percent Auto 85.2 % (45.5-73.1); Platelet Count Result 192 k/mm3 (150-375); Red Blood Count 4.21 M/mm3 (4.6-6.20); Red Cell Distribution Width 16.5 % (11.5-14.5); White Blood Count 12.8 K/mm3 (4.5-10.0)
[2024-01-07 04:46] LABS: Alanine Aminotransferase 81 U/L (6-50); Albumin Level 3.7 g/dL (3.5-5.1); Alkaline Phosphatase 123 U/L (38-126); Anion Gap 9 mmol/L (4-12); Aspartate Amino Transferase 39 U/L (17-59); Bilirubin,Total 0.6 mg/dL (0.2-1.3); Blood Urea Nitrogen 13 mg/dL (9-20); Calcium 9.1 mg/dL (8.4-10.2); Carbon Dioxide 24 mmol/L (22-30); Chloride 107 mmol/L (98-107); Estimated CRCL calculation 45 ml/min; Estimated Glomerular Filt Rate 53; Glucose 96 mg/dL (65-110); Potassium 3.9 mmol/L (3.4-5.0); Sodium 140 mmol/L (137-145)
[2024-01-07] MEDS: PIPERACILLN/TAZ 3.375GM/NS50ML 3.375 GM/50 ML BAG IVPB ×4 (05:47→23:30)
--- NOTE | 2024-01-07 08:00 | ECG_ITS ---
Test Date: 2024-01-07 08:13:38 Measurements Intervals [place] Rate: 58 P: 159 RI: 120 QRS: 18 QRSD: 130 T: 193 QT: 458 QTc: 452 Interpretive Statements SINUS BRADYCARDIA WITH OCCASIONAL SUPRAVENTRICULAR PREMATURE COMPLEXES RIGHT BUNDLE BRANCH BLOCK ST-T WAVE ABNORMALITY IN ANTEROLATERAL LEADS- CONSIDER ISCHEMIA BASELINE ARTIFACT- I, II, AVR, AVL, AVF, V1-V6 ABNORMAL ECG Compared to ECG 01/06/2024 17:56:01 HEART RATE HAS DECREASED Electronically Signed On 01-07-2024 08:58:00 CDT by Chapincito Grimm D.O.
[2024-01-07] MEDS: PANTOPRAZOLE 40 MG TABLET PO (09:29)
[2024-01-07] MEDS: METOPROLOL TARTRATE 25 MG TABLET PO ×2 (09:29→20:25)
[2024-01-07] MEDS: APIXABAN 5 MG TABLET PO ×2 (09:29→20:25)
--- NOTE | 2024-01-07 09:45 | PM.CNCAR ---
Assessment and Plan Assessment and plan (1) PSVT (paroxysmal supraventricular tachycardia): Code(s): I47.10 - Supraventricular tachycardia, unspecified Status: Acute Assessment and Plan: 78-year-old male with history of recurrent DVT/PE on chronic anticoagulation with apixaban, RBBB, chronic leukopenia, QAMAR on CPAP. Patient admitted to the hospital with radiculitis. During hospitalization, he had SVT with heart rate in 200s with spontaneous roman catholic of sinus rhythm. Patient gives history of palpitations for last 3 months, likely secondary to same arrhythmia that was noted during hospitalization. Currently in sinus rhythm. TSH normal. - continue low-dose metoprolol tartrate as initiated earlier - Thirty day event monitor at discharge to check for recurrence of arrhythmia and symptom correlation. Patient will follow-up with his primary lay out machine operator-Dr. Kaminski who will determine need for Electrophysiology evaluation based on patient's clinical course and any recurrent arrhythmias. I gave follow-up information to the patient, and discussed with his as well. (2) Diverticulitis: Code(s): K57.92 - Diverticulitis of intestine, part unspecified, without perforation or abscess without bleeding Status: Acute Assessment and Plan: Symptoms resolved. Management as per primary team. (3) Chronic leukopenia: Code(s): D72.819 - Decreased white blood cell count, unspecified Status: Chronic Assessment and Plan: Evaluated by Hematology, management as per primary team and Hematology. (4) QAMAR (obstructive sleep apnea): Code(s): G47.33 - Obstructive sleep apnea (adult) (pediatric) Status: Acute Assessment and Plan: Continue CPAP. 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 Fall precautions. History of Present Illness History of Present Illness Consult date/time: 01/07/24 09:45 Requesting physician: Eliseo Kaur MD Consult reason: post-op evaluation (SVT) Reason For Visit: Diverticulitis Narrative: DATE OF CONSULT:01/07/2024 REASON FOR CONSULT: SVT REQUESTING PHYSICIAN: Dr. 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 Patient follows up with Dr. Kaminski for cardiovascular care. He presented to [facility] Room on 01/03/2024 with complaints of abdominal pain and was found to have diverticulitis. His abdominal pain improved through the hospitalization. Denied chest pain or dyspnea at presentation. At baseline, he uses cane for walking and tries to exercise a few times a week. He had coronary angiogram on 10/07/2021 in the setting of chest discomfort, which reportedly did not show any significant obstructive CAD. He denies history of any known arrhythmias. However, patient states that for the last 3 months, he gets palpitations, about twice a month with spontaneous resolution. EKG from 01/06/2024 which I personally interpreted showed sinus rhythm, RBBB, ST-T abnormality in the anterolateral leads. Subsequent EKG showed sinus rhythm with frequent PACs. Yesterday, patient's heart rate went into 200s associated with dyspnea and chest discomfort. The rhythm was regular with underlying RBBB suggestive of SVT. He had spontaneous roman catholic of sinus rhythm. Case was discussed with the primary team at the time of the event. On telemetry, he has been in sinus rhythm/sinus bradycardia since yesterday's event. He was initiated on low-dose metop
[2024-01-07 12:13] LABS: Basophils Percent Auto 0.3 % (0.2-1.2); Eosinophils Absolute Auto 0.1 K/mm3 (0-0.3); Eosinophils Percent Auto 0.7 % (0-4.4); Hematocrit 40.3 % (42.0-52.0); Hemoglobin 12.9 g/dL (14.0-18.0); Immature Granulocyte Absolute 0.18 K/mm3 (0.00-0.031); Lymphocytes Absolute Auto 1.17 K/mm3 (0.9-3.2); Lymphocytes Percent Auto 12.9 % (18.3-44.2); Mean Corpuscular Hemoglobin 28.9 pg (26-34); Mean Corpuscular Volume 90.4 fl (80-100); Monocytes Absolute Auto 0.2 K/mm3 (0.1-0.6); Monocytes Percent Auto 2.6 % (2.6-8.5); Neutrophils Absolute Auto 7.4 K/mm3 (1.3-6.7); Neutrophils Percent Auto 81.5 % (45.5-73.1); Platelet Count Result 207 k/mm3 (150-375); Red Blood Count 4.46 M/mm3 (4.6-6.20); Red Cell Distribution Width 16.5 % (11.5-14.5); White Blood Count 9.1 K/mm3 (4.5-10.0)
--- NOTE | 2024-01-07 12:41 | PM.IMPN ---
Progress Note: A&P Assessment and Plan (1) Diverticulitis: Code(s): K57.92 - Diverticulitis of intestine, part unspecified, without perforation or abscess without bleeding Status: Acute Assessment and Plan: - receiving Zosyn - Blood cultures no growth to date. - encourage hydration - tolerating food well. (2) Chronic leukopenia: Code(s): D72.819 - Decreased white blood cell count, unspecified Status: Chronic Assessment and Plan: - WBC increased to 12.8 today, recheck was 9.1. Stopped Neupogen injections. Monitor labs. - Follow up in the outpatient setting - Informatica Developer/Oncologist consult completed yesterday with Dr. Singh. - Plan is once WBC count more than 5,000 than outpatient will need a bone marrow biopsy. (3) PSVT (paroxysmal supraventricular tachycardia): Code(s): I47.10 - Supraventricular tachycardia, unspecified Status: Acute Assessment and Plan: - seen by Stonemason Helper Dr. Reynoso today. - Now SR 64. - Patient to continue Metoprolol 25 mg PO q 12. - Echo doppler comp to be completed. - Patient will need a 30 day holter monitor at discharge and to follow up with his primary Stonemason Helper Dr. Kaminski at discharge. 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 type: unspecified Qualified Code(s): J43.9 - Emphysema, unspecified Code(s): J44.9 - Chronic obstructive pulmonary disease, unspecified Status: Acute Assessment and Plan: -breathing treatments as needed (6) Chronic kidney disease, stage 3a: Code(s): N18.31 - Chronic kidney disease, stage 3a Status: Acute Assessment and Plan: 01/04/24: BUN 13, Creatinine 1.10, & GFR >60 01/05/24: BUN 14, Creatinine 1.20, & GFR 58 01/06/24: BUN 14, Creatinine 1.20, & GFR 58 01/07/24: BUN 13, Creatinine 1.30, & GFR 53 (7) QAMAR (obstructive sleep apnea): Code(s): G47.33 - Obstructive sleep apnea (adult) (pediatric) Status: Acute Assessment and Plan: -CPAP at nighttime (8) Gastroesophageal reflux disease: Code(s): K21.9 - Gastro-esophageal reflux disease without esophagitis Status: Acute Assessment and Plan: -PPI Subjective Date/time seen: 01/07/24 12:41 Interval history: Patient denies chest pain, palpitations, shortness of breath, headache, dizziness, nausea, or vomiting. Reports feeling better today. at bedside. Review of Systems Review of Systems: All systems reviewed & are unremarkable except as noted in HPI and below Exam Const: General: comfortable and no acute distress Neck: Neck: supple and no JVD Resp: Effort & Inspection: normal respiratory effort Auscultation: clear to auscultation bilaterally Cardio: Rate: regular rate Rhythm: regular rhythm GI: GI Palp: Yes Soft to palpation Auscultation: normal bowel sounds : Other: voiding without difficulty Skin: General skin exam: no rashes or lesions noted Neuro: Speech: normal speech Extrem: General: no pedal edema Other: Purplish, blanchable discoloration to the bilateral feet. Warm to touch. 2+PP. Psych: Mental Status: mental status grossly normal Affect: normal affect Objective Data Vital Signs Vital Signs: Vital Signs - 24 hr 01/06/24 14:00 01/06/24 16:45 01/06/24 17:27 Temperature 97.5 F L 99.8 F H Pulse Rate 57 L 96 105 H Respiratory Rate 16 18 Blood Pressure 101/71 113/75 Pulse Oximetry 96 99 Oxygen Delivery 01/06/24 18:53 12/10
[2024-01-07] MEDS: LATANOPROST 0.005% OP SOLN 2.5 ML BTL 1 DROP EACH EYE (20:25)
[2024-01-08] VITALS (16 sets, daily range): BP systolic 110–133; BP diastolic 48–76; PULSE 53–184; RESP 16–18; TEMP 36–36.9; O2SAT 95–100
--- NOTE | 2024-01-08 | ECHO_ITS ---
Patient Info Name: Russ Kern Age: 78 years : 1945 Gender: Male Ht: 72 in Wt: 215 lbs BSA: 2.25 m2 HR: 56 bpm BP: 110 / 53 mmHg Technical Quality: Good Exam Date: 01/08/2024 9:07 AM Exam Location: Echo Lab Patient Status: Inpatient Admit Date: 01/07/2024 Staff Ordering Physician: Eliseo Kaur MD Private Investigator Surveillance: Glenn Washington RDCS Attending Provider: Deepika Limon MD Exam Type: CA echo doppler color flow Study Info Indications - SVT Complete two-dimensional, color flow and Doppler transthoracic echocardiogram is performed. Summary 1. Complete two-dimensional, color flow and Doppler transthoracic echocardiogram is performed. 2. The left ventricular size is at the upper limits of normal. There is moderate eccentric left ventricular hypertrophy. The left ventricular systolic function is normal with LVEF estimated to be 60-65%. There is grade 2 diastolic dysfunction. 3. The right ventricle is normal size with normal systolic function. 4. There is evidence of mild pulmonary hypertension the RVSP is calculated 45 mmHg. Left Ventricle The left ventricular size is at the upper limits of normal. There is moderate eccentric left ventricular hypertrophy. The left ventricular systolic function is normal with LVEF estimated to be 60-65%. There is grade 2 diastolic dysfunction. Right Ventricle The right ventricle is normal size with normal systolic function. Left Atria Left atrial chamber dimension is normal. Right Atria Right atrial chamber dimension is normal. Aortic Valve The aortic valve is trileaflet. There is mild aortic regurgitation. Pulmonic Valve The pulmonic valve is normal. There is no pulmonic valve regurgitation. Mitral Valve The mitral valve is sclerotic. There is mild mitral regurgitation. Tricuspid Valve The tricuspid valve is normal. There is trace tricuspid regurgitation. There is evidence of mild pulmonary hypertension the RVSP is calculated 45 mmHg. Pericardium/Pleural Pericardium is normal in appearance with no evidence for significant pericardial effusion. Aorta The aortic root at the level of the sinus of Valsalva is normal in diameter measuring 3.5 cm. Left Ventricular Outflow Tract Name Value Normal LVOT 2D LVOT Diameter 2.2 cm LVOT Doppler LVOT Peak Gradient 6 mmHg LVOT Mean Gradient 3 mmHg LVOT VTI 32 cm LVOT VTI/AV VTI Ratio 1.0 LVOT Stroke Volume 119 ml LVOT CO 6.3 l/min LVOT CI 2.8 l/min/m2 Mitral Valve Name Value Normal MV Doppler MV Decel [place] 332 cm/s2 MV PHT 91 ms MV Area (PHT) 2.4 cm2 4.0-5.0 MV Regurgitation Doppler MR Peak
[2024-01-08 04:57] LABS: Basophils Percent Auto 0.5 % (0.2-1.2); Eosinophils Absolute Auto 0.1 K/mm3 (0-0.3); Eosinophils Percent Auto 1.9 % (0-4.4); Hematocrit 37.6 % (42.0-52.0); Immature Granulocyte Absolute 0.18 K/mm3 (0.00-0.031); Immature Granulocyte Percent A 4.8 % (0-0.5); Lymphocytes Absolute Auto 1.38 K/mm3 (0.9-3.2); Lymphocytes Percent Auto 36.9 % (18.3-44.2); Mean Corpuscular HGB Conc 31.9 g/dl (32-36); Mean Corpuscular Hemoglobin 29.1 pg (26-34); Mean Platelet Volume 12.4 fl (7.4-10.4); Monocytes Absolute Auto 0.3 K/mm3 (0.1-0.6); Monocytes Percent Auto 7.5 % (2.6-8.5); Neutrophils Absolute Auto 1.8 K/mm3 (1.3-6.7); Neutrophils Percent Auto 48.4 % (45.5-73.1); Platelet Count Result 204 k/mm3 (150-375); Red Blood Count 4.13 M/mm3 (4.6-6.20); Red Cell Distribution Width 16.3 % (11.5-14.5); White Blood Count 3.7 K/mm3 (4.5-10.0)
[2024-01-08 05:15] LABS: Alanine Aminotransferase 68 U/L (6-50); Albumin Level 3.4 g/dL (3.5-5.1); Alkaline Phosphatase 104 U/L (38-126); Anion Gap 8 mmol/L (4-12); Aspartate Amino Transferase 30 U/L (17-59); Bilirubin,Total 0.3 mg/dL (0.2-1.3); Blood Urea Nitrogen 15 mg/dL (9-20); Calcium 9.1 mg/dL (8.4-10.2); Carbon Dioxide 26 mmol/L (22-30); Chloride 106 mmol/L (98-107); Estimated CRCL calculation 42 ml/min; Estimated Glomerular Filt Rate 49; Glucose 108 mg/dL (65-110); Potassium 3.9 mmol/L (3.4-5.0); Sodium 140 mmol/L (137-145)
[2024-01-08] MEDS: PIPERACILLN/TAZ 3.375GM/NS50ML 3.375 GM/50 ML BAG IVPB ×2 (05:42→11:09)
[2024-01-08] MEDS: PANTOPRAZOLE 40 MG TABLET PO (05:43)
[2024-01-08] MEDS: APIXABAN 5 MG TABLET PO ×2 (10:55→20:08)
[2024-01-08] MEDS: FILGRASTIM-SNDZ 480 MCG/0.8 ML SYRINGE SUB-Q (10:57)
--- NOTE | 2024-01-08 14:07 | PM.IMPN ---
Progress Note: A&P Assessment and Plan (1) Diverticulitis: Code(s): K57.92 - Diverticulitis of intestine, part unspecified, without perforation or abscess without bleeding Status: Acute Assessment and Plan: - Discontinued Zosyn, switched to Augmentin. - Blood cultures no growth to date. - encourage hydration - tolerating food well. (2) Chronic leukopenia: Code(s): D72.819 - Decreased white blood cell count, unspecified Status: Chronic Assessment and Plan: - WBC increased to 12.8 today, recheck was 9.1. Today 3.7. Restarted Neupogen. - Follow up in the outpatient setting - Retail Sales Professional/Oncologist Dr. Singh to see patient this afternoon. - Plan is once WBC count more than 5,000 than outpatient will need a bone marrow biopsy. (3) PSVT (paroxysmal supraventricular tachycardia): Code(s): I47.10 - Supraventricular tachycardia, unspecified Status: Acute Assessment and Plan: - seen by Order Checker Packer Processer Dr. Reynoso today. - Now SB 56 - Patient to continue Metoprolol 25 mg PO q 12. - Echo doppler completed today: Summary 1. Complete two-dimensional, color flow and Doppler transthoracic echocardiogram is performed. 2. The left ventricular size is at the upper limits of normal. There is moderate eccentric left ventricular hypertrophy. The left ventricular systolic function is normal with LVEF estimated to be 60-65%. There is grade 2 diastolic dysfunction. 3. The right ventricle is normal size with normal systolic function. 4. There is evidence of mild pulmonary hypertension the RVSP is calculated 45 mmHg. - Patient will need a 30 day holter monitor at discharge and to follow up with his primary Order Checker Packer Processer Dr. Kaminski at discharge. 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 type: unspecified Qualified Code(s): J43.9 - Emphysema, unspecified Code(s): J44.9 - Chronic obstructive pulmonary disease, unspecified Status: Acute Assessment and Plan: -breathing treatments as needed (6) Chronic kidney disease, stage 3a: Code(s): N18.31 - Chronic kidney disease, stage 3a Status: Acute Assessment and Plan: 01/04/24: BUN 13, Creatinine 1.10, & GFR >60 01/05/24: BUN 14, Creatinine 1.20, & GFR 58 01/06/24: BUN 14, Creatinine 1.20, & GFR 58 01/07/24: BUN 13, Creatinine 1.30, & GFR 53 01/08/24: BUN 15, Creatinine 1.40. & GFR 49 (7) QAMAR (obstructive sleep apnea): Code(s): G47.33 - Obstructive sleep apnea (adult) (pediatric) Status: Acute Assessment and Plan: -CPAP at nighttime (8) Gastroesophageal reflux disease: Code(s): K21.9 - Gastro-esophageal reflux disease without esophagitis Status: Acute Assessment and Plan: -PPI Subjective Date/time seen: 01/08/24 14:07 Interval history: Patient denies chest pain, palpitations, shortness of breath, headache, dizziness, nausea, or vomiting. Reports feeling better today. at bedside. Review of Systems Review of Systems: All systems reviewed & are unremarkable except as noted in HPI and below Exam Resp: Effort & Inspection: normal respiratory effort Auscultation: clear to auscultation bilaterally Cardio: Rate: bradycardic GI: GI Palp: Yes Soft to palpation Auscultation: normal bowel sounds Extrem: General: normal to inspection Psych: Mental Status: mental status grossly normal Affect: normal affect Objective Data Vital Signs Vital Signs: Vital Signs
[2024-01-08] MEDS: HYDROcodone/acetaminophen (*CRX) 5-325 MG TABLET 1 TAB PO ×2 (14:33→20:08)
--- NOTE | 2024-01-08 16:26 | ECG_ITS ---
Test Date: 2024-01-08 16:36:04 Measurements Intervals [place] Rate: 68 P: 99 ID: [id number] QRS: 31 QRSD: 136 T: 187 QT: 437 QTc: 466 Interpretive Statements SINUS RHYTHM WITH SHORT ID INTERVAL RIGHT BUNDLE BRANCH BLOCK ST-T WAVE ABNORMALITY IN ANTEROLATERAL LEADS- CONSIDER ISCHEMIA BASELINE WANDER- V1-V6 ABNORMAL ECG Compared to ECG 01/07/2024 08:13:38 HEART RATE HAS INCREASED Electronically Signed On 01-08-2024 16:43:34 CDT by Chapincito Grimm D.O.
[2024-01-08 17:44] LABS: Troponin I < 0.012 ng/mL (0.000-0.034)
[2024-01-08] MEDS: AMOXICILLIN/CLAVULANATE K 875-125 MG TAB 1 TABLET PO (18:03)
--- NOTE | 2024-01-08 18:46 | WPDONCPN ---
Progress Note: A/P - Additional Plan Leukopenia and anemia. Leukopenia diagnosed in [address]22. CT scan previously showed normal spleen. Iron level came back slightly low. Vitamin B12 was normal. MARLINE is pending. There was a concern about underlying bone marrow disorder and bone marrow biopsy will be needed and performed as an outpatient. WBC count has improved after Neupogen. Patient can be released at tomorrow as long as ANC is more than 1000. He will follow-up in the office next week. Anemia. Iron level was slightly low. He will start oral iron 65 mg twice a day. B12 level was normal. Tachycardia. Resolved. Patient will follow-up with the Cardiology. Diverticulitis. Patient is off antibiotic and feeling better. Hopefully will be discharged tomorrow. - Time Spent With Patient Total time spent is greater than 50% in coordination of care (as documented) at patient's floor/unit and/or counseling patient: 15 - 25 minutes Subjective Interval history: Leukopenia and anemia Review of Systems - Review of Systems Patient resting comfortably. She he denies any night sweats and fevers and chills. Patient had a run of tachycardia and now resolved.. No chest pain and shortness of breath. Patient had some pelvic pain after the Neupogen injection. No other new complaints. Exam Vital signs: Temp Pulse Resp BP Pulse Ox O2 Del Method 36.9 C 67 18 111/48 L 95 Room Air 01/08/24 16:00 01/08/24 16:00 01/08/24 16:00 01/08/24 16:00 01/08/24 16:00 01/08/24 16:41 Narrative: Lungs are clear to auscultation bilaterally Cardiovascular regular rate rhythm no murmurs Abdomen soft nontender nondistended bowel sounds are positive Extremities no edema PN: Objective Data - Labs CBC & Chem 7: 01/08/24 03:54 01/08/24 03:54 Labs: Laboratory Results - last 24 hr 01/08/24 01/08/24 03:54 17:07 WBC 3.7 L RBC 4.13 L Hgb 12.0 L Hct 37.6 L MCV 91.0 MCH 29.1 MCHC 31.9 L RDW 16.3 H Plt Count 204 MPV 12.4 H Immature Gran % (Auto) 4.8 H Neut % (Auto) 48.4 Lymph % (Auto) 36.9 [place] % (Auto) 7.5 Eos % (Auto) 1.9 Baso % (Auto) 0.5 Lymph # (Auto) 1.38 [place] # (Auto) 0.3 Eos # (Auto) 0.1 Baso # (Auto) 0.0 Abs Immat Gran (auto) 0.18 H Absolute Neuts (auto) 1.8 Absolute Nucleated RBC 0.000 Nucleated RBC % 0.0 Sodium 140 Potassium 3.9 Chloride 106 Carbon Dioxide 26 Anion Gap 8 BUN 15 Creatinine 1.40 H Estim Creat Clear Calc 42 Estimated GFR 49 L Glucose 108 Calcium 9.1 Total Bilirubin 0.3 AST 30 ALT 68 H Alkaline Phosphatase 104 Troponin I < 0.012 Total Protein 6.0 L Albumin 3.4 L
[2024-01-08] MEDS: METOPROLOL TARTRATE 25 MG TABLET PO (20:08)
[2024-01-09] VITALS (11 sets, daily range): BP systolic 113–121; BP diastolic 49–64; PULSE 57–79; RESP 16–20; TEMP 36.4–36.8; O2SAT 95–97
[2024-01-09] MEDS: LATANOPROST 0.005% OP SOLN 2.5 ML BTL 1 DROP EACH EYE (00:16)
[2024-01-09 05:13] LABS: Basophils Percent Auto 0.2 % (0.2-1.2); Eosinophils Absolute Auto 0.1 K/mm3 (0-0.3); Eosinophils Percent Auto 0.4 % (0-4.4); Hematocrit 39.9 % (42.0-52.0); Hemoglobin 12.6 g/dL (14.0-18.0); Immature Granulocyte Absolute 0.75 K/mm3 (0.00-0.031); Lymphocytes Percent Auto 8.5 % (18.3-44.2); Mean Corpuscular HGB Conc 31.6 g/dl (32-36); Mean Corpuscular Hemoglobin 28.8 pg (26-34); Mean Corpuscular Volume 91.3 fl (80-100); Mean Platelet Volume 12.2 fl (7.4-10.4); Monocytes Absolute Auto 0.8 K/mm3 (0.1-0.6); Monocytes Percent Auto 4.3 % (2.6-8.5); Neutrophils Absolute Auto 15.6 K/mm3 (1.3-6.7); Neutrophils Percent Auto 82.6 % (45.5-73.1); Platelet Count Result 215 k/mm3 (150-375); Red Blood Count 4.37 M/mm3 (4.6-6.20); Red Cell Distribution Width 16.3 % (11.5-14.5); White Blood Count 18.8 K/mm3 (4.5-10.0)
[2024-01-09 05:25] LABS: Alanine Aminotransferase 51 U/L (6-50); Albumin Level 3.8 g/dL (3.5-5.1); Alkaline Phosphatase 133 U/L (38-126); Anion Gap 10 mmol/L (4-12); Aspartate Amino Transferase 27 U/L (17-59); Bilirubin,Total 0.4 mg/dL (0.2-1.3); Blood Urea Nitrogen 14 mg/dL (9-20); Calcium 9.2 mg/dL (8.4-10.2); Carbon Dioxide 25 mmol/L (22-30); Chloride 106 mmol/L (98-107); Estimated CRCL calculation 40 ml/min; Estimated Glomerular Filt Rate 45; Glucose 87 mg/dL (65-110); Potassium 4.1 mmol/L (3.4-5.0); Sodium 141 mmol/L (137-145)
--- NOTE | 2024-01-09 07:30 | PM.PNCARD ---
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 Patient admitted to the hospital with diverticulitis. During hospitalization, he had SVT with heart rate in 200s with spontaneous shinto of sinus rhythm. Patient gives history of palpitations for last 3 months, likely secondary to same arrhythmia that was noted during hospitalization. Currently in sinus rhythm. TSH normal. -Will shift from metoprolol to diltiazem 30mg q6h today in hopes of managing his SVT better. If he tolerates this dose, he can be shifted to the long acting form at discharge for dosing convenience -Thirty day event monitor at discharge to check for recurrence of arrhythmia and symptom correlation (Patient will not be able to leave the hospital with monitor in place, he will need to make an appointment for this at [facility]). Patient will follow-up with his primary creative designer-Dr. Kaminski who will determine need for Electrophysiology evaluation based on patient's clinical course and any recurrent arrhythmias. Patient has been provided with follow up information. -Cardiology will sign off please call with any questions. (2) Diverticulitis: Code(s): K57.92 - Diverticulitis of intestine, part unspecified, without perforation or abscess without bleeding Status: Acute Assessment and Plan: Symptoms resolved. Management as per primary team. (3) Chronic leukopenia: Code(s): D72.819 - Decreased white blood cell count, unspecified Status: Chronic Assessment and Plan: Evaluated by Hematology, management as per primary team and Hematology. (4) QAMAR (obstructive sleep apnea): Code(s): G47.33 - Obstructive sleep apnea (adult) (pediatric) Status: Acute Assessment and Plan: Continue CPAP. 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 Fall precautions. Subjective Date/time seen: 01/09/24 07:30 Interval history: Cardiology follow up for SVT Date of service 01/09/2024: Has had several runs of PSVT over the past 24 hours. He feels his heart racing when he is in SVT but denies any other symptoms. Review of Systems Review of Systems: General: positive for fatigue Psychological: Negative for anxiety, depression Ophthalmic: negative for loss of vision ENT: Negative for epistaxis, headaches Allergy and immunology: Negative for hives, nasal congestion Hematologic and lymphatic: Negative for overt bleeding problems Endocrine: Negative for hot flashes, palpitations Respiratory: Negative for cough, hemoptysis Cardiovascular: Negative for chest pain, shortness of breath, positive for palpitations Gastrointestinal: positive abdominal pain; negative for nausea, vomiting, hematochezia Musculoskeletal: Negative for myalgia, joint pains Neurological:positive unsteady gait Dermatological: Negative for rash, skin discoloration Exam Const: General: comfortable, no acute distress, alert and awake Orientation/consciousness: patient oriented x3 HENMT: Head: normal to inspection Eyes: General: appearance normal, both eyes and all related structures Pupils: Equal, round and reactive pupils present Neck: Neck: normal visual inspection, supple and no JVD Carotids: normal carotid upstroke Resp: Effort & Inspection: normal respiratory effor
[2024-01-09] MEDS: PANTOPRAZOLE 40 MG TABLET PO (08:10)
[2024-01-09] MEDS: APIXABAN 5 MG TABLET PO (08:10)
[2024-01-09] MEDS: AMOXICILLIN/CLAVULANATE K 875-125 MG TAB 1 TABLET PO (08:10)
[2024-01-09] MEDS: dilTIAZem HCL 30 MG TABLET PO ×2 (08:20→11:43)
--- NOTE | 2024-01-09 12:18 | PM.DS ---
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: Qualifiers: Laterality: unspecified laterality Qualified Code(s): I82.409 - Acute embolism and thrombosis of unspecified deep veins of unspecified lower extremity Code(s): I82.409 - Acute embolism and thrombosis of unspecified deep veins of unspecified lower extremity Status: Acute (5) COPD (chronic obstructive pulmonary disease): Qualifiers: COPD type: emphysema Emphysema type: unspecified Qualified Code(s): J43.9 - Emphysema, unspecified Code(s): J44.9 - Chronic obstructive pulmonary disease, unspecified Status: Acute (6) Chronic kidney disease, stage 3a: Code(s): N18.31 - Chronic kidney disease, stage 3a Status: Acute (7) QAMAR (obstructive sleep apnea): Code(s): G47.33 - Obstructive sleep apnea (adult) (pediatric) Status: Acute Plan Abdominal pain DS: Summary Hospital Course Hospital Course: 01/03/24 CT of abdomen showed: Multifocal, but otherwise uncomplicated appearing diverticulitis involving the hepatic flexure and mid sigmoid. Inflammatory changes are more pronounced at the hepatic flexure. Patient responded well to Zosyn and was transitioned to oral antibiotics. Patient with chronic leukopenia and seen by Dr. Singh, patient was started on Neupogen injections to improve WBC. Dr. Singh will see patient at his office within the week and plan to do a bone marrow biopsy once WBC > 5,000. Patient has had episodes of SVT with chest pain and palpitations. Cardiology seen and patient will discharge Diltiazem 120 mg PO daily. Patient to follow up with cardiology and to wear a 30 day holter monitor. Blood cultures no growth. Echocardiogram 01/07/24 showed: Summary 1. Complete two-dimensional, color flow and Doppler transthoracic echocardiogram is performed. 2. The left ventricular size is at the upper limits of normal. There is moderate eccentric left ventricular hypertrophy. The left ventricular systolic function is normal with LVEF estimated to be 60-65%. There is grade 2 diastolic dysfunction. 3. The right ventricle is normal size with normal systolic function. 4. There is evidence of mild pulmonary hypertension the RVSP is calculated 45 mmHg. Electrocardiogram showed: SINUS RHYTHM WITH SHORT [place] INTERVAL RIGHT BUNDLE BRANCH BLOCK Status at Discharge Functional status at discharge: independent ambulation Overall status at discharge: patient is progressing back to baseline Time Spent with Patient Time attestation: Total time spent providing and/or coordinating discharge services: Time spent: Greater than 30 minutes Exam Const: General: comfortable and no acute distress Neck: Neck: supple Resp: Effort & Inspection: normal respiratory effort Auscultation: clear to auscultation bilaterally Cardio: Rate: regular rate Rhythm: regular rhythm Other: SR- 64 GI: GI Palp: Yes Soft to palpation Auscultation: normal bowel sounds : Other: Voiding without difficulty Extrem: General: normal to inspection Psych: Mental Status: mental status grossly normal Affect: normal affect DS: Data Data Completed and Pending Labs on day of discharge: Labs from last 24 hours 01/09/24 01/08/24 04:25 17:07 WBC 18.8 H RBC 4.37 L Hgb 12.6 L Hct 39.9 L MCV 91.3 MCH 28.8 MCHC 31.6 L RDW 16.3 H Plt Count
== END 2024-01-09 13:14 | disposition home or self-care (01) | DRG 392 ==
LOC: ANHED 20:11 → ANH3MEDSUR 20:48 → ANHIMU 01-06 21:14
PROVIDERS: Internal Medicine; Internal Medicine Hematology & Oncology; Admitting Provider Internal Medicine; Emergency Provider Emergency Medicine; PCP Family Medicine; Visit Provider Nurse Practitioner Family
DX: K57.20 Diverticulitis of large intestine with perforation and abscess without bleeding (principal); I47.10 Supraventricular tachycardia, unspecified; N18.31 Chronic kidney disease, stage 3a; J44.9 Chronic obstructive pulmonary disease, unspecified; I34.0 Nonrheumatic mitral (valve) insufficiency; D72.819 Decreased white blood cell count, unspecified; K21.9 Gastro-esophageal reflux disease without esophagitis; G47.33 Obstructive sleep apnea (adult) (pediatric); G62.9 Polyneuropathy, unspecified; Z86.718 Personal history of other venous thrombosis and embolism; Z79.01 Long term (current) use of 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s
CPT/HCPCS: 36415; 74176; 80053; 81001; 82607; 82728; 82746; 83540; 83550; 83605; 83690; 83735; 84443; 84484; 85025; 85380; 86038; 86039; 87040; 93005; 93306; 96361; 96365; 96366; 96372; 96375; 99285; A9270; G0378; J2270; J2543; J7030; Q5101

== ENCOUNTER 2024-02-01 14:13 | Outpatient (CLI) | payer MEDICARE, SELFPAY ==
[2024-02-01 14:31] LABS: Basophils Percent Auto 1.1 % (0.2-1.2); Eosinophils Absolute Auto 0.1 K/mm3 (0-0.3); Eosinophils Percent Auto 5.7 % (0-4.4); Hematocrit 40.1 % (42.0-52.0); Hemoglobin 12.5 g/dL (14.0-18.0); Lymphocytes Absolute Auto 0.61 K/mm3 (0.9-3.2); Lymphocytes Percent Auto 70.1 % (18.3-44.2); Mean Corpuscular HGB Conc 31.2 g/dl (32-36); Mean Corpuscular Hemoglobin 28.3 pg (26-34); Mean Corpuscular Volume 90.7 fl (80-100); Mean Platelet Volume 11.3 fl (7.4-10.4); Monocytes Absolute Auto 0.1 K/mm3 (0.1-0.6); Neutrophils Absolute Auto 0.1 K/mm3 (1.3-6.7); Neutrophils Percent Auto 15.1 % (45.5-73.1); Platelet Count Result 131 k/mm3 (150-375); Red Blood Count 4.42 M/mm3 (4.6-6.20); Red Cell Distribution Width 16.9 % (11.5-14.5)
[2024-02-01 14:34] LABS: White Blood Count 0.9 K/mm3 (4.5-10.0)
[2024-02-01 16:47] LABS: Iron 52 ug/dL (49-181)
[2024-02-01 16:50] LABS: Anion Gap 9 mmol/L (4-12); Blood Urea Nitrogen 19 mg/dL (9-20); Calcium 9.7 mg/dL (8.4-10.2); Carbon Dioxide 28 mmol/L (22-30); Chloride 104 mmol/L (98-107); Estimated Glomerular Filt Rate 53; Glucose 102 mg/dL (65-110); Potassium 4.7 mmol/L (3.4-5.0); Sodium 141 mmol/L (137-145)
[2024-02-01 16:56] LABS: Percent Iron Saturation 15 % (20-50)
== END 2024-02-01 14:14 | disposition home or self-care (01) ==
LOC: ANHLAB 14:14
PROVIDERS: PCP Family Medicine; Visit Provider Internal Medicine Hematology & Oncology
DX: D64.9 Anemia, unspecified (principal)
CPT/HCPCS: 36415; 80048; 82607; 82728; 83540; 83550; 85025

== ENCOUNTER 2024-02-12 00:30 | Day surgery (SDC) | payer MEDICARE, SELFPAY ==
[2024-02-09 14:40] VITALS: BMI 29.0
--- NOTE | ~2024-02-12 | BM_ITS ---
EXAMINATION: CCL bone marrow asp w bx diag DATE: 02/12/2024 09:36 INDICATION: Leukopenia. TECHNIQUE: A time-out was performed to verify the patient's name, date of , and procedure to b e performed. The procedure including the risks, benefits, and alternatives was discussed with the pat ient. Risks discussed included bleeding and infection. The patient understood the risks and agreed to proceed. The skin overlying the left ilium was prepped and draped in usual sterile fashion. Anesth etic was administered with 1% lidocaine subcutaneously. Moderate sedation was achieved with 1 mg Vers ed IV and 50 mg fentanyl IV. An 11 gauge needle was inserted into the ilium with fluoroscopic guidan ce. Bone marrow was aspirated. An 8 gauge needle was then inserted into the ilium with fluoroscopic g uidance. A core bone marrow biopsy was obtained. There were no immediate complications. Fluoroscopy e xposure time was 0.0 minutes. The total number of images was 36. FINDINGS: Real-time fluoroscopy demonstrates a marker overlying the left posterior superior iliac spi ne. IMPRESSION: 1. Fluoro-guided bone marrow aspiration. 2. Fluoro-guided bone marrow core biopsy. Reviewed, dictated and finalized at location A. [facility]
[2024-02-12 07:43] VITALS: BP 128/83; PULSE 89; RESP 19; TEMP 36.8; O2SAT 96; BMI 29.0
[2024-02-12 07:58] LABS: Basophils Percent Auto 0.9 % (0.2-1.2); Eosinophils Percent Auto 1.7 % (0-4.4); Hematocrit 43.7 % (42.0-52.0); Hemoglobin 13.8 g/dL (14.0-18.0); Immature Platelet Fraction Pct 8.9 % (0.9-11.2); Lymphocytes Absolute Auto 0.83 K/mm3 (0.9-3.2); Lymphocytes Percent Auto 71.6 % (18.3-44.2); Mean Corpuscular HGB Conc 31.6 g/dl (32-36); Mean Corpuscular Hemoglobin 28.2 pg (26-34); Mean Corpuscular Volume 89.2 fl (80-100); Monocytes Absolute Auto 0.1 K/mm3 (0.1-0.6); Monocytes Percent Auto 6.9 % (2.6-8.5); Neutrophils Absolute Auto 0.2 K/mm3 (1.3-6.7); Neutrophils Percent Auto 18.9 % (45.5-73.1); Platelet Count Result 130 k/mm3 (150-375); Red Cell Distribution Width 16.8 % (11.5-14.5)
[2024-02-12 08:10] LABS: INR 1.1; Prothrombin Time 14.3 Seconds (11.1-14.7)
[2024-02-12 08:39] LABS: Anisocytosis 1+; Hypochromasia 1+; Platelet Estimate Slightly Decreased (Adequate); White Blood Count 1.2 K/mm3 (4.5-10.0)
[2024-02-12 08:40] LABS: Schistocytes None Seen
--- NOTE | 2024-02-12 09:03 | P.SEDATION_ITS ---
Moderate Sedation Note-Pt Data Patient Data Diagnosis: Leukopenia. Present Complaint: Leukopenia. Procedure to be performed/Plan: Fluoro-guided bone marrow biopsy of ilium. Allergies Allergy/AdvReac Type Severity Reaction Status Date / Time Iodinated Contrast Media Allergy Intermediate Hives Verified 02/12/24 07:42 NSAIDS (Non-Steroidal AdvReac Unknown Unknown Verified 02/12/24 07:42 Anti-Inflamma Home Medications Medication Instructions Recorded Confirmed Type apixaban 5 mg tablet (Eliquis) 5 mg PO BID #60 tabs 09/25/19 02/09/24 Rx cholecalciferol (vitamin D3) 25 25 mcg PO DAILY 06/07/21 02/09/24 History mcg (1,000 unit) capsule folic acid 400 mcg tablet 0.4 mg PO DAILY 03/15/22 02/09/24 History bimatoprost 0.01 % eye drops 1 drp EACH EYE HS 06/16/22 02/09/24 History (Theo) lansoprazole 30 mg capsule,delayed 30 mg PO DAILY 3 months #90 caps 07/17/23 02/09/24 Rx release budesonide-formoterol HFA 160 2 puff inhalation Q12H PRN 01/03/24 02/09/24 History mcg-4.5 mcg/actuation aerosol Shortness Of Breath inhaler (Symbicort) diltiazem HCl 120 mg 120 mg PO DAILY #30 caps 01/09/24 02/09/24 Rx capsule,extended release 24 hr levofloxacin 250 mg tablet 250 mg BID 02/09/24 02/09/24 History Sedation/Anesthesia: No previous sedation/anesthesia problems (including family history). [facility] Past Medical History Medical History Acquired hypercoagulable state BMI 30.0-30.9,adult Bursitis of right hip Cholecystectomy planned COPD (chronic obstructive pulmonary disease) COVID-19 Encounter for removal of skin lesion Exposure to COVID-19 virus Impaired functional mobility, balance, and endurance Mitral valve regurgitation Need for lipid screening Polyneuropathy Pronation of foot Raised seborrheic keratosis 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 Right bundle branch block Screening for prostate cancer Seborrheic keratoses, inflamed Sore in nose Surgical History Surgical History History of appendectomy Family History Family History Father Atherosclerosis Dementia Coronary artery disease Hypertension Mother Dementia Sibling Acute myocardial infarction Dementia Other Family history of mental disorder Social History Social History Smoking status: Never smoker Second hand tobacco smoke exposure: Yes Alcohol intake: never Drinks per week: 1 Alcohol use details: 1/month Substance use: never Substance use type: does not use Do You Feel Safe in your Home?: Yes Lack of Transportation: No Lack of Food: Never True Current Housing: I Have Housing Concerned About Future Housing: No Difficulty Paying Gas/Electric Bills: No Difficulty Paying for Meds: No Currently Unemployed: No Education: Master's Degree or Higher Difficulty w/ Childcare or Family Care: No Living arrangements: with family Additional living arrangements comments: 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/Education: 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 Gender identity (if verbalized by the patient): Male Spiritual care concerns: No Mod Sed Physical Exam Physical Exam Pre Procedural Exam: Normal: Appearance, Lungs, Heart Rate, Heart Rhythm and Abdomen Hours since solid foods: 12 Hours since liquid intake: 12 Mallampati Classification: class 1 Internal Medicine - PN: Obj Da Vital Signs Vital Signs: Vital Signs - 24 hr 02/12/24 07:43 Temperature 36.8 C Pulse Rate 89 Respiratory Rate 19 Blood Pressure 128/83 Pulse Oximetry 96 Oxygen Delivery Room Air Labs 02/12/24 07:41 Labs: Laboratory Results - last 24 hr 02/12/24 07:41 WBC 1.2 L* RBC 4.90 Hgb 13.8 L Hct 43.7 MCV 89.2 MCH 28.2 MCHC 31.6 L RDW 16.8 H Plt Count 130 L MPV 12.0 H Immature Gran % (Auto) 0.0 Neut % (Auto) 18.9 L Lymph % (Auto) 71.6 H Summers % (Auto) 6.9 Eos % (Auto) 1.7 Baso % (Auto) 0.9 Lymph # (Auto) 0.83 L Summers # (Auto) 0.1 Eos # (Auto) 0.0 Baso # (Auto) 0.0 Abs Immat Gran (auto) 0.00 Absolute Neuts (auto) 0.2 L Absolute Nucleated RBC 0.000 Nucleated RBC % 0.0 Platelet Estimate Slightly decreased % Immature Plt Fraction 8.9 Hypochromasia 1+ Anisocytosis 1+ Schistocytes None seen PT 14.3 INR 1.1 ASA Classification/Sedation ASA Classification/Sedation ASA Class: II Emergent: No Risks: Risks, benefits and alternatives explained and patient/family accepted plan for sedation. Patient re-evaluated immediately prior to sedation.
[2024-02-12 09:45] VITALS: BP 131/87; PULSE 64; RESP 16; O2SAT 97
[2024-02-12 10:00] VITALS: BP 131/80; PULSE 63; RESP 12; O2SAT 96
[2024-02-12 10:15] VITALS: BP 121/72; PULSE 62; RESP 11; O2SAT 96
[2024-02-12 10:30] VITALS: BP 133/81; PULSE 67; RESP 17; O2SAT 98
== END 2024-02-12 10:49 | disposition home or self-care (01) ==
PROVIDERS: PCP Family Medicine; Referring Provider Internal Medicine Hematology & Oncology; Visit Provider Radiology Diagnostic Radiology
DX: D72.819 Decreased white blood cell count, unspecified (principal); J44.9 Chronic obstructive pulmonary disease, unspecified; I34.0 Nonrheumatic mitral (valve) insufficiency; I45.10 Unspecified right bundle-branch block; Z79.51 Long term (current) use of inhaled steroids; Z79.01 Long term (current) use of 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s; Z98.890 Other specified postprocedural states; Z82.49 Family history of ischemic heart disease and other diseases of the circulatory system
CPT/HCPCS: 36415; 38222; 85025; 85055; 85610; 88305; 88311; 88313; J2003; J2250; J3010

== ENCOUNTER 2024-03-25 14:28 | Outpatient (CLI) | payer MEDICARE, SELFPAY ==
[2024-03-25 14:52] LABS: Eosinophils Percent Auto 1.2 % (0-4.4); Hematocrit 36.4 % (42.0-52.0); Hemoglobin 11.7 g/dL (14.0-18.0); Immature Granulocyte Absolute 0.02 K/mm3 (0.00-0.031); Immature Granulocyte Percent A 2.4 % (0-0.5); Lymphocytes Absolute Auto 0.33 K/mm3 (0.9-3.2); Lymphocytes Percent Auto 40.2 % (18.3-44.2); Mean Corpuscular HGB Conc 32.1 g/dl (32-36); Mean Corpuscular Hemoglobin 28.7 pg (26-34); Mean Corpuscular Volume 89.2 fl (80-100); Monocytes Percent Auto 4.9 % (2.6-8.5); Neutrophils Absolute Auto 0.4 K/mm3 (1.3-6.7); Neutrophils Percent Auto 51.3 % (45.5-73.1); Platelet Count Result 85 k/mm3 (150-375); Red Blood Count 4.08 M/mm3 (4.6-6.20); Red Cell Distribution Width 17.2 % (11.5-14.5)
[2024-03-25 14:53] LABS: White Blood Count 0.8 K/mm3 (4.5-10.0)
[2024-03-25 14:55] LABS: Atypical Lymphocytes Present; Platelet Estimate Decreased (Adequate); Schistocytes None Seen
[2024-03-25 14:56] LABS: Ovalocytes 1+; Poikilocytosis 1+
[2024-03-25 15:05] LABS: Blood Urea Nitrogen 11 mg/dL (8-26); Carbon Dioxide 26 mmol/L (22-30); Chloride 100 mmol/L (98-109); Estimated Glomerular Filt Rate 53; Glucose 99 mg/dL (70-105); Ionized Calcium (POC) 1.19 mmol/L (1.11-1.31); Potassium 3.8 mmol/L (3.5-4.9); Sodium 140 mmol/L (138-146)
== END 2024-03-25 14:29 | disposition home or self-care (01) ==
LOC: ANHLAB 14:29
PROVIDERS: Visit Provider Internal Medicine Hematology & Oncology
DX: C92.00 Acute myeloblastic leukemia, not having achieved remission (principal)
CPT/HCPCS: 36415; 80047; 85025; 85055

== ENCOUNTER 2024-03-28 08:22 | Outpatient (CLI) | payer MEDICARE, SELFPAY ==
[2024-03-28 08:47] LABS: Eosinophils Percent Auto 1.4 % (0-4.4); Hematocrit 35.3 % (42.0-52.0); Hemoglobin 11.6 g/dL (14.0-18.0); Immature Granulocyte Absolute 0.01 K/mm3 (0.00-0.031); Immature Granulocyte Percent A 1.4 % (0-0.5); Immature Platelet Fraction Pct 7.6 % (0.9-11.2); Lymphocytes Percent Auto 55.6 % (18.3-44.2); Mean Corpuscular HGB Conc 32.9 g/dl (32-36); Mean Corpuscular Volume 88.3 fl (80-100); Mean Platelet Volume 12.2 fl (7.4-10.4); Monocytes Percent Auto 4.2 % (2.6-8.5); Neutrophils Absolute Auto 0.3 K/mm3 (1.3-6.7); Neutrophils Percent Auto 37.4 % (45.5-73.1); Platelet Count Result 86 k/mm3 (150-375); Red Cell Distribution Width 17.2 % (11.5-14.5)
[2024-03-28 08:52] LABS: White Blood Count 0.7 K/mm3 (4.5-10.0)
[2024-03-28 08:53] LABS: Atypical Lymphocytes Present; Platelet Estimate Decreased (Adequate); Schistocytes None Seen
[2024-03-28 09:02] LABS: Blood Urea Nitrogen 13 mg/dL (8-26); Carbon Dioxide 26 mmol/L (22-30); Chloride 105 mmol/L (98-109); Estimated Glomerular Filt Rate 58; Glucose 98 mg/dL (70-105); Ionized Calcium (POC) 1.24 mmol/L (1.11-1.31); Potassium 3.8 mmol/L (3.5-4.9); Sodium 143 mmol/L (138-146)
== END 2024-03-28 08:23 | disposition home or self-care (01) ==
LOC: ANHLAB 08:23
PROVIDERS: Visit Provider Internal Medicine Hematology & Oncology
DX: C92.00 Acute myeloblastic leukemia, not having achieved remission (principal)
CPT/HCPCS: 36415; 80047; 85025; 85055

== ENCOUNTER 2024-04-01 10:13 | Outpatient (CLI) | payer MEDICARE, SELFPAY ==
[2024-04-01 10:36] LABS: Hematocrit 36.7 % (42.0-52.0); Hemoglobin 11.8 g/dL (14.0-18.0); Immature Granulocyte Absolute 0.01 K/mm3 (0.00-0.031); Immature Granulocyte Percent A 1.7 % (0-0.5); Lymphocytes Absolute Auto 0.37 K/mm3 (0.9-3.2); Lymphocytes Percent Auto 63.8 % (18.3-44.2); Mean Corpuscular HGB Conc 32.2 g/dl (32-36); Mean Corpuscular Hemoglobin 28.9 pg (26-34); Mean Corpuscular Volume 89.7 fl (80-100); Mean Platelet Volume 11.2 fl (7.4-10.4); Monocytes Percent Auto 5.2 % (2.6-8.5); Neutrophils Absolute Auto 0.2 K/mm3 (1.3-6.7); Neutrophils Percent Auto 29.3 % (45.5-73.1); Platelet Count Result 82 k/mm3 (150-375); Red Blood Count 4.09 M/mm3 (4.6-6.20); Red Cell Distribution Width 17.4 % (11.5-14.5)
[2024-04-01 10:42] LABS: White Blood Count 0.6 K/mm3 (4.5-10.0)
[2024-04-01 10:43] LABS: Atypical Lymphocytes Present; Platelet Estimate Decreased (Adequate); Schistocytes None Seen
[2024-04-01 12:25] LABS: Anion Gap 4 mmol/L (4-12); Blood Urea Nitrogen 17 mg/dL (9-20); Calcium 9.4 mg/dL (8.4-10.2); Carbon Dioxide 28 mmol/L (22-30); Chloride 109 mmol/L (98-107); Estimated Glomerular Filt Rate 49; Glucose 93 mg/dL (65-110); Potassium 3.9 mmol/L (3.4-5.0); Sodium 141 mmol/L (137-145)
== END 2024-04-01 10:14 | disposition home or self-care (01) ==
LOC: ANHLAB 10:15
PROVIDERS: Visit Provider Internal Medicine Hematology & Oncology
DX: C92.00 Acute myeloblastic leukemia, not having achieved remission (principal)
CPT/HCPCS: 36415; 80048; 85025

== ENCOUNTER 2024-04-02 09:38 | Emergency (ER) | payer MEDICARE, SELFPAY ==
[2024-04-02 10:10] VITALS: BP 141/77; PULSE 72; RESP 16; TEMP 36.6; O2SAT 98
--- NOTE | 2024-04-02 10:26 | ED_ITS ---
HPI - Recheck/Abnormal Lab/Rx General Chief Complaint: Recheck/Abnormal Lab/Rx Stated Complaint: oncologist called told him he needs fluids Time Seen by Provider: 04/02/24 10:26 Source: patient Mode of arrival: ambulatory Limitations: no limitations History of Present Illness HPI narrative: This is a 78-year-old male who presents to the ED for chief complaint of abnormal lab draw. He was told by his oncologist to come to the hospital for IV fluids for an elevated creatinine. Patient states that he is feeling fine. Denies any symptoms at this time. States that he requested if he could just drink water and his doctor told him to be evaluated in the ER. Related Data Home Medications ?Medication ?Instructions ?Recorded ?Confirmed ?Last Taken ?Type cholecalciferol (vitamin D3) 25 25 mcg PO DAILY 06/07/21 02/09/24 02/09/24 History mcg (1,000 unit) capsule folic acid 400 mcg tablet 0.4 mg PO DAILY 03/15/22 02/09/24 02/09/24 History bimatoprost 0.01 % eye drops 1 drp EACH EYE HS 06/16/22 02/09/24 02/09/24 History (Theo) budesonide-formoterol HFA 160 2 puff inhalation Q12H PRN 01/03/24 02/09/24 02/09/24 History mcg-4.5 mcg/actuation aerosol Shortness Of Breath inhaler (Symbicort) levofloxacin 250 mg tablet 250 mg BID 02/09/24 02/09/24 02/09/24 History Allergies Allergy/AdvReac Type Severity Reaction Status Date / Time Iodinated Contrast Media Allergy Intermediate Hives Verified 04/02/24 09:41 NSAIDS (Non-Steroidal AdvReac Unknown Unknown Verified 04/02/24 09:41 Anti-Inflamma Review of Systems 2 Review of Systems: All systems as dictated in HPI [facility] Past Medical History Medical History Acquired hypercoagulable state BMI 30.0-30.9,adult Bursitis of right hip Cholecystectomy planned COPD (chronic obstructive pulmonary disease) COVID-19 Encounter for removal of skin lesion Exposure to COVID-19 virus Impaired functional mobility, balance, and endurance Mitral valve regurgitation Need for lipid screening Polyneuropathy Pronation of foot Raised seborrheic keratosis 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 Right bundle branch block Screening for prostate cancer Seborrheic keratoses, inflamed Sore in nose Surgical History Surgical History History of appendectomy Family History Family History Father Atherosclerosis Dementia Coronary artery disease Hypertension Mother Dementia Sibling Acute myocardial infarction Dementia Other Family history of mental disorder Social History Social History Smoking status: Never smoker Second hand tobacco smoke exposure: Yes Alcohol intake: never Drinks per week: 1 Alcohol use details: 1/month Substance use: never Substance use type: does not use Do You Feel Safe in your Home?: Yes Lack of Transportation: No Lack of Food: Never True Current Housing: I Have Housing Concerned About Future Housing: No Difficulty Paying Gas/Electric Bills: No Difficulty Paying for Meds: No Currently Unemployed: No Education: Master's Degree or Higher Difficulty w/ Childcare or Family Care: No Living arrangements: with family Additional living arrangements comments: 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 HEAD: Normocephalic, atraumatic. EYES: PERRLA and EOMI. ENT: Nares clear, no rhinorrhea or epistaxis. Mucous membranes moist. Oropharynx without tonsillar hypertrophy exudate or other lesions. NECK: Supple. No adenopathy or masses. CHEST: No respiratory distress. Clear to auscultation. No wheezes rales or rhonchi HEART: Regular rate and rhythm. No murmur heard. Normal peripheral pulses. ABDOMEN: Soft, nontender, nondistended, normal active bowel sounds. MSK: Normal range of motion. No edema. SKIN: Warm, dry, no rash. NEURO: Alert and oriented x4. No focal deficits. PSYCH: Normal mood and affect. Course Vital Signs Vital signs: Vital Signs Temperature 98 F 04/02/24 10:10 Pulse Rate 72 04/02/24 10:10 Respiratory Rate 16 04/02/24 10:10 Blood Pressure 141/77 H 04/02/24 10:10 Pulse Oximetry 98 04/02/24 10:10 Oxygen Delivery Room Air 04/02/24 10:10 Temperature 98 F 04/02/24 10:10 Pulse Rate 68 04/02/24 12:00 Respiratory Rate 16 04/02/24 12:00 Blood Pressure 127/64 04/02/24 12:00 Pulse Oximetry 98 04/02/24 12:00 Oxygen Delivery Room Air 04/02/24 10:10 MDM - Recheck/Abnormal Lab/Rx MDM Narrative Medical decision making narrative: This is a 78-year-old male who presents to the ED for chief complaint of abnormal kidney function and told to come to the ER by his oncologist for IV fluids. Vitals are normal. Exam is benign. Lab work is unremarkable. Creatinine is normal. He was given 1 L of fluids. Patient will be discharged in stable condition. Supportive measures discussed and return precautions given. Patient is understanding and agreeable with plan for discharge with PCP follow-up. Lab Data 04/02/24 10:27 04/02/24 10:27 Labs: Lab Results 04/02/24 Range/Units 10:27 WBC 0.6 L* (4.5-10.0) K/mm3 RBC 4.18 L (4.6-6.20) M/mm3 Hgb 12.0 L (14.0-18.0) g/dL Hct 36.8 L (42.0-52.0) % MCV 88.0 (80-100) fl MCH 28.7 (26-34) pg MCHC 32.6 (32-36) g/dl RDW 17.6 H (11.5-14.5) % Plt Count 101 L (150-375) k/mm3 MPV 13.0 H (7.4-10.4) fl Immature Gran % (Auto) Not Reportable Neut % (Auto) Not Reportable Lymph % (Auto) Not Reportable Cannon % (Auto) Not Reportable Eos % (Auto) Not Reportable Baso % (Auto) Not Reportable Lymph # (Auto) Not Reportable Cannon # (Auto) Not Reportable Eos # (Auto) Not Reportable Baso # (Auto) Not Reportable Abs Immat Gran (auto) Not Reportable Absolute Neuts (auto) Not Reportable Absolute Nucleated RBC Not Reportable Total Counted 60 Neutrophils % (Manual) 14 L (46-73) % Lymphocytes % (Manual) 44 (18-44) % Monocytes % (Manual) 2 L (3-9) % Nucleated RBC % Not Reportable Abs Lymphs (Manual) 0.26 L (1.1-4.5) K/mm3 Abs Monocytes (Manual) 0.01 L (0.1-0.90) K/mm3 Platelet Estimate Decreased (Adequate) Hypochromasia 1+ Anisocytosis 1+ Ovalocytes 1+ Schistocytes None seen Sodium 139 (137-145) mmol/L Potassium 3.7 (3.4-5.0) mmol/L Chloride 107 (98-107) mmol/L Carbon Dioxide 28 (22-30) mmol/L Anion Gap 4 (4-12) mmol/L BUN 16 (9-20) mg/dL Creatinine 1.10 (0.7-1.3) mg/dL Estim Creat Clear Calc 53 ml/min Estimated GFR > 60 (59 - ) Glucose 108 (65-110) mg/dL Calcium 9.3 (8.4-10.2) mg/dL Total Bilirubin 0.9 (0.2-1.3) mg/dL AST 33 (17-59) U/L ALT 35 (6-50) U/L Alkaline Phosphatase 102 (38-126) U/L Total Protein 7.0 (6.3-8.2) g/dL Albumin 4.2 (3.5-5.1) g/dL Lipase 125 (23-300) U/L Discharge Plan Discharge Clinical Impression: Encounter for medical screening examination Patient Disposition: Home, Self-Care Condition: Stable Instructions: Antibiotic Form Additional Instructions: Your exam and workup today are reassuring. Your kidney function is back to normal. For given 1 L of fluids here. Please follow-up with Oncology as scheduled. If you have any new or worsening symptoms please return to the ER for further evaluation. Patient Language: Nicaraguan Prescriptions: No Action Eliquis 5 mg tablet 5 mg PO BID Qty: 60 0RF cholecalciferol (vitamin D3) 25 mcg (1,000 unit) capsule 25 mcg PO DAILY folic acid 400 mcg tablet 0.4 mg PO DAILY Lumigan 0.01 % drops 1 drp EACH EYE HS budesonide-formoterol [Symbicort] 160-4.5 mcg/actuation HFA aerosol inhaler 2 puff INHALATION Q12H PRN (Reason: Shortness Of Breath) diltiazem HCl 120 mg capsule,extended release 24hr 120 mg PO DAILY Qty: 30 0RF levofloxacin 250 mg tablet 250 mg BID lansoprazole 30 mg capsule,delayed release(DR/EC) 30 mg PO DAILY 90 Days Qty: 90 3RF Follow-up/Referrals: UNKNOWN,DOCTOR [Non-Staff] - Time of Disposition: 11:09
[2024-04-02 10:33] LABS: Hematocrit 36.8 % (42.0-52.0); Mean Corpuscular HGB Conc 32.6 g/dl (32-36); Mean Corpuscular Hemoglobin 28.7 pg (26-34); Platelet Count Result 101 k/mm3 (150-375); Red Blood Count 4.18 M/mm3 (4.6-6.20); Red Cell Distribution Width 17.6 % (11.5-14.5)
[2024-04-02 10:50] LABS: Alanine Aminotransferase 35 U/L (6-50); Albumin Level 4.2 g/dL (3.5-5.1); Alkaline Phosphatase 102 U/L (38-126); Anion Gap 4 mmol/L (4-12); Aspartate Amino Transferase 33 U/L (17-59); Bilirubin,Total 0.9 mg/dL (0.2-1.3); Blood Urea Nitrogen 16 mg/dL (9-20); Calcium 9.3 mg/dL (8.4-10.2); Carbon Dioxide 28 mmol/L (22-30); Chloride 107 mmol/L (98-107); Estimated CRCL calculation 53 ml/min; Estimated Glomerular Filt Rate > 60; Glucose 108 mg/dL (65-110); Lipase 125 U/L (23-300); Potassium 3.7 mmol/L (3.4-5.0); Sodium 139 mmol/L (137-145)
[2024-04-02] MEDS: SODIUM CHLORIDE 0.9% IV 1,000 ML 999 ML IV CONT (10:55)
[2024-04-02 11:09] LABS: White Blood Count 0.6 K/mm3 (4.5-10.0)
[2024-04-02 11:16] LABS: Lymphocytes Absolute Manual 0.26 K/mm3 (1.1-4.5); Lymphocytes Percent Manual 44 % (18-44); Monocytes Absolute Manual 0.01 K/mm3 (0.1-0.90); Monocytes Percent Manual 2 % (3-9); Neutrophils Percent Manual 14 % (46-73); Platelet Estimate Decreased (Adequate); Total Cells Counted 60
[2024-04-02 11:17] LABS: Anisocytosis 1+; Hypochromasia 1+; Ovalocytes 1+; Schistocytes None Seen
[2024-04-02 12:00] VITALS: BP 127/64; PULSE 68; RESP 16; O2SAT 98
--- OUTSIDE RECORDS SUMMARY | 2024-04-09 17:25 | XMS_ITS | Referral Summary ---
Author Organization [facility] Address [address] [place] [address] Care Team Providers Care First Mate Name Role Phone Timothy Banks MD Primary Care Provider Cindy Garcia MD Unavailable Source Comments [facility],non-owned Affiliates and Associated Physician Practices is amultiple site organization consisting of ambulatory clinics and hospital sitesin [place], [place], [place] and [place]. This disclosure is being madepursuant to the Care Everywhere program and may not contain all information available regarding this patient. Last updated 17.[facility] Encounters Date Type Department Care Team Description 04/05/2024 Orders Only [facility] [address] [place] [address] Cindy Garcia MD 04/04/2024 Telephone [facility] - Hematology/Oncolog y [address] [place] [phone] Cindy Garcia MD Medication Prior Auth Request 04/01/2024 Orders Only [facility] [address] [place], [place] [phone] Cindy Garcia MD Tumor lysis syndrome (HCC) 04/01/2024 Travel 04/01/2024 3:09 PM [facility] - 04/01/2024 11:59 PM [facility] Hospital Encounter [facility] [address] [facility] [place] [address] Discharge Disposition: Home or Self Care 04/01/2024 Orders Only [facility] [address] [place] [address] Cindy Garcia MD 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) 04/01/2024 2:00 PM [facility] Office Visit [facility] - Hematology/Oncolog y [address] [place] [phone] Cindy Garcia MD 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) 03/25/2024 Orders Only [facility] [address] [place] [phone] Ekta Ferro, HOT DIP PLATER-SUPPLY CHAIN ASSOCIATE 03/25/2024 Orders Only [facility] - Hematology/Oncolog y [address] [place] [phone] Cindy Garcia MD Acute myeloid leuk w multilin dysplasia, 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) 03/25/2024 Telephone Transitional Care at [facility] [address] [place] [phone] Adamaris Jesus, meat department manager 03/13/2024 7:14 PM [facility] - 03/23/2024 1:56 PM [facility] Hospital Encounter [facility] [address] [place] [address] Cindy Garcia MD Kumar, Ashwath, MD Schrader, Kevin Michael, MD Masud, Josh Chavez MD Internal Medicine Discharge Disposition: Home or Self Care 03/14/2024 Telephone [facility] - Hematology/Oncolog y [address] [place] [phone] Cindy Garcia MD Medication Prior Auth Request 03/14/2024 Telephone [facility] - Hematology/Oncolog y [address] [place] [phone] Cindy Garcia MD Medication Prior Auth Request 03/14/2024 Telephone [facility] - Hematology/Oncolog y [address] [place] [phone] Cindy Garcia MD Medication Prior Auth Request 03/13/2024 Travel 03/13/2024 Telephone [facility] [address] [place] [phone] Cindy Garcia MD Medication Prior Auth Request 03/13/2024 Orders Only [facility] [address] [place] [address] Sammie Hartman, PharmD 03/13/2024 Orders Only [facility] [address] [place] [phone] Cindy Garcia MD 03/04/2024 Travel 03/04/2024 3:35 PM [facility] [employer] - 03/04/2024 11:59 PM [facility] [employer] Hospital Encounter [facility] [address] [place] [address], [address] [place] [address] Discharge Disposition: Home or Self Care 03/04/2024 Orders Only [facility] [address] [place] [phone] Cindy Garcia MD MDS (myelodysplastic syndrome) (HCC) 03/04/2024 2:00 PM [facility] [employer] Office Visit [facility] - Hematology/Oncolog y [address] [place] [phone] Cindy Garcia MD MDS (myelodysplastic syndrome) (HCC) (Primary Dx) 03/01/2024 Orders Only [facility] [address] [place] [phone] Cindy Garcia MD Neutropenia, unspecified type (HCC) 03/01/2024 Telephone [facility] - Hematology/Oncolog y [address] [place] [phone] Cindy Mansfield MA Appointment (Patient has comfirmed) 02/13/2024 Lab Requisition [facility] - Pathology Lab [address] [place] [phone] Rommel Dinh MD Illness, unspecified 02/12/2024 Lab Requisition [facility] - Pathology Lab [address] [place] [phone] Rommel Dinh MD Decreased white blood cell count, unspecified from Last 3 Months Allergies Active Allergy Reactions Criticality Noted Date Comments Contrast-Gadolinium Agents For Mri Urticaria Medium 1 05/04/2023 Medications * Be aware that medications may not be up to date on this document. Alwaysverify current medications with the patient. Medication Sig Dispensed Refills Start Date End Date Status posaconazole (Noxafil) 100 MG tablet Take 3 (three) tablets by mouth daily with dinner for 90 days 90 tablet 2 03/13/2024 Active lansoprazole (Prevacid) 30 MG capsule Take 1 (one) capsule by mouth daily before breakfast Active vitamin D3 (Cholecalciferol ) 10 MCG (400 UNIT) tablet Take 1 (one) capsule by mouth once daily Active folic acid 400 MCG tablet Take 1 (one) tablet by mouth once daily Active budesonide-formo terol (Symbicort) 160-4.5 MCG/ACT inhaler Inhale 2 (two) puffs by mouth as needed (has not used in 3 weeks) Active dilTIAZem (Cardizem) 120 MG tablet Take 1 (one) tablet by mouth once daily Active valACYclovir (Valtrex) 500 MG tablet Take 1 (one) tablet by mouth 2 times daily 60 tablet 03/23/2024 Active levoFLOXacin (Levaquin) 500 MG tablet Take 1 (one) tablet by mouth every 24 hours 30 tablet 03/23/2024 Active apixaban (Eliquis) 2.5 MG tablet Take 1 (one) tablet by mouth 2 times daily 60 tablet 03/23/2024 Active acetaminophen (Tylenol) 325 MG tablet Take 2 (two) tablets by mouth every 4 hours as needed Maximum allowable Acetaminophen amount = 4 Grams (4000 mg) / 24 hours. 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) Take 1 (one) tablet by mouth 2 times daily as needed for Nausea/Vomiting Allow tablet to dissolve on the tongue 30 tablet 03/23/2024 Active Additional Information Patient not taking.Reported on 04/01/2024 ferrous sulfate 325 (65 FE) MG tablet Take 1 (one) tablet by mouth every 2 days 30 tablet 03/23/2024 Active venetoclax (Venclexta) 100 MG tabletIndication s:Acute Myelocytic Leukemia Take 1 (one) tablet by mouth daily with food Reasons: Acute Myelocytic Leukemia 21 tablet 11 04/05/2024 5 Active venetoclax (Venclexta) 100 MG tabletIndication s:Acute Myelocytic Leukemia Take 1 (one) tablet by mouth daily with food Reasons: Acute Myelocytic Leukemia 28 tablet 11 03/13/2024 4 Discontinued (Reorder) apixaban (Eliquis) 5 MG tablet Take 1 (one) tablet by mouth 2 times daily 4 Discontinued (Dose Adjustment) levoFLOXacin (Levaquin) 250 MG tablet Take 1 (one) tablet by mouth once daily 4 Discontinued (Dose Adjustment) magnesium oxide (Mag-Ox) 400 MG tablet Take 1 (one) tablet by mouth 2 times daily for 3 days 6 tablet 03/23/2024 4 potassium - sodium phosphates (Phos-Nak) 280-160-250 MG powder Take 1 (one) packet by mouth 3 times daily with meals for 3 days 9 packet 03/23/2024 4 venetoclax (Venclexta) 100 MG tabletIndication s:Acute Myelocytic Leukemia Take 1 (one) tablet by mouth daily with food Reasons: Acute Myelocytic Leukemia 21 tablet 11 04/05/2024 4 Discontinued (Reorder) Active Problems Problem Noted Date Diagnosed Date Acute myeloid leuk w multilin dysplasia, 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 MDS (myelodysplastic syndrome) 03/13/2024 Social History Tobacco Use Types Packs/Day Years Used Date Smoking Tobacco: Never Passive Smoke Exposure: Never Smokeless Tobacco: Never Tobacco Cessation:Counseling Given: Not Answered AUDIT-C Answer Date Recorded Q1: How often do you have a drink containing alc ohol? Monthly or less 03/13/2024 Q2: How many drinks containi ng alcohol do you have on a typical day when you are drinking? 1 or 2 03/13/2024 Q3: How often do you have si x or more drinks on one occasion? Never 03/13/2024 Overall Financial Resource Strain (CARDIA) Answe r Date Recorded How hard is it for you to pa y for the very basics like food, housing, medical care, and heating? Not hard at all 03/13/2024 [facility] [place] [facility] - Occupational Stress Questionnaire Answer Date Recorded Do you feel stress - tense, restless, nervous, or anxious, or unable to sleep at night because your mind is troubled all the time - these days? Not at all 03/13/2024 Hunger Vital Sign Answer Date Recorded Within the past 12 months, y ou worried that your food would run out before you got the money to buy more. Never true 03/13/20 24 Within the past 12 months, t he food you bought just didn't last and you didn't have money to get more. Never true 03/13/2024 PRAPARE - Transportation Answer Date Re corded In the past 12 months, has l ack of transportation kept you from medical appointments or from getting medications? No 07/2023 In the past 12 months, has l ack of transportation kept you from meetings, work, or from getting things needed for daily living? No 03/13/2024 Housing Stability Vital Sign Answer Kodi e Recorded In the last 12 months, was t here a time when you were not able to pay the mortgage or rent on time? No 03/13/2024 In the past 12 months, how m any times have you moved where you were living? 0 03/13/2024 At any time in the past 12 m [facility], were you homeless or living in a half-way (including now)? No 03/13/2024 Sex and Gender Information Value Date Recorded Sex Assigned at Male 03/05/2024 8:04 AM [facility] Gender Identity Male 03/05/2024 8:04 AM [facility] Sexual Orientation Straight 03/05/2024 8: 04 AM [facility] Last Filed Vital Signs Vital Sign Reading Time Taken Comments Blood Pressure 127/67 04/01/2024 1:56 PM [facility] Pulse 66 04/01/2024 1:56 PM [facility] [employer] Temperature 36.7 ??C (98.1 ??F) 04/01/2024 1:56 PM CS T Respiratory Rate 18 04/01/2024 1:56 PM [facility] Oxygen Saturation 99% 04/01/2024 1:56 PM [facility] Inhaled Oxygen Concentration - - Weight 99 kg (218 lb 4.8 oz) 04/01/2024 1:56 PM [facility] Height 182.9 cm (6') 03/15/2024 12:17 PM [facility] Body Mass Index 29.61 03/15/2024 12:17 PM [facility] Functional Status Functional Status Response Date of Assess ment Is person deaf or have serious hearing difficult y? No 03/13/2024 Is person blind or have serious difficulty seein g? No 03/13/2024 Does person have serious dif ficulty walking/climbing stairs? Yes 03/13/2024 Does person have difficulty dressing/bathing? No 03/13/2024 Does person have difficulty doing errands alone? No 03/13/2024 Cognitive Status Response Date of Assessm ent Does person have difficulty concentrating/remembering/making decisions? No 03/13/2024 Plan of Treatment Upcoming Encounters Date Type Department Care Team (Late st Contact Info) Description 04/11/2024 8:00 AM [facility] Hospital Encounter [facility] [address] [place] [phone] Cindy Garcia MD [address] [place] [phone] 04/15/2024 8:30 AM [employer] Hospital Encounter [facility] [address] [place] [phone] 04/16/2024 9:00 AM [employer] Hospital Encounter [facility] [address] [place] [phone] 04/17/2024 8:30 AM [employer] Appointment [facility] [address] [place] [phone] 04/18/2024 9:30 AM [employer] Appointment [facility] [address] [place] [phone] 04/18/2024 10:30 AM [employer] Office Visit [facility] - Hematology/Oncology [address] [place] [phone] Cindy Garcia MD [address] [place] [address] 04/19/2024 9:00 AM [employer] [employer] Appointment [facility] [address] [place] [phone] 05/13/2024 9:00 AM [employer] [employer] Appointment [facility] [address] [place] [phone] Procedures Procedure Name Priority Date/Time Associated Diagnosis Comments PHOSPHORUS BLOOD Routine 04/01/2024 3:12 PM [facility] Tumor lysis syndrome (HCC) URIC ACID BLOOD Routine 04/01/2024 3:12 PM [facility] Tumor lysis syndrome (HCC) DIFFERENTIAL MANUAL Routine 04/01/2024 3 :12 PM [facility] 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) MAGNESIUM BLOOD Routine 04/01/2024 3:12 PM [facility] 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) ERYTHROPOIETIN Routine 04/01/2024 3:12 PM [facility] 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) SOLUBLE TRANSFERRIN RECEPTOR Routine 04/01/2024 3:12 PM [facility] 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) COMPREHENSIVE METABOLIC PANEL Routine 04/01/2024 3:12 PM [facility] 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) CBC W AUTO DIFFERENTIAL Routine 04/01/20 3:12 PM [facility] 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) LAB RESULTS ORDER 03/25/2024 DIFFERENTIAL MANUAL AM Draw 03/23/2024 1 2:25 AM [facility] MAGNESIUM BLOOD Routine 03/23/2024 12:25 AM [facility] URIC ACID BLOOD Routine 03/23/2024 12:25 AM [facility] PHOSPHORUS BLOOD Routine 03/23/2024 12:2 5 AM [facility] COMPREHENSIVE METABOLIC PANEL Routine 03/23/2024 12:25 AM [facility] LDH BLOOD Routine 03/23/2024 12:25 AM [facility] PTT [facility] AM Draw 03/23/2024 12:25 AM [facility] PT-INR [facility] AM Draw 03/23/2024 12:25 AM [employer] [employer] CBC W AUTO DIFFERENTIAL AM Draw 03/23/20 12:25 AM [facility] MAGNESIUM BLOOD Routine 03/22/2024 6:20 PM [facility] URIC ACID BLOOD Routine 03/22/2024 6:20 PM [employer] [employer] PHOSPHORUS BLOOD Routine 03/22/2024 6:20 PM [facility] COMPREHENSIVE METABOLIC PANEL Routine 03/22/2024 6:20 PM [employer] [facility] [employer] LDH BLOOD Routine 03/22/2024 6:20 PM [employer] DIFFERENTIAL MANUAL AM Draw 03/22/2024 6 :58 AM [employer] [facility] MAGNESIUM BLOOD Routine 03/22/2024 6:58 AM [employer] [facility] URIC ACID BLOOD Routine 03/22/2024 6:58 AM [employer] [facility] PHOSPHORUS BLOOD Routine 03/22/2024 6:58 AM [facility] COMPREHENSIVE METABOLIC PANEL Routine 03/22/2024 6:58 AM [employer] [facility] [employer] LDH BLOOD Routine 03/22/2024 6:58 AM [facility] PTT [facility] AM Draw 03/22/2024 6:58 AM [facility] PT-INR [facility] AM Draw 03/22/2024 6:58 AM [employer] CBC W AUTO DIFFERENTIAL AM Draw 03/22/20 24 6:58 AM [employer] [facility] MAGNESIUM BLOOD Routine 03/21/2024 3:47 AM [employer] [facility] URIC ACID BLOOD Routine 03/21/2024 3:47 AM [employer] [facility] PHOSPHORUS BLOOD Routine 03/21/2024 3:47 AM [employer] COMPREHENSIVE METABOLIC PANEL Routine 03/21/2024 3:47 AM [employer] LDH BLOOD Routine 03/21/2024 3:47 AM [facility] PTT [facility] AM Draw 03/21/2024 3:47 AM [employer] PT-INR [facility] AM Draw 03/21/2024 3:47 AM [employer] [facility] CBC W AUTO DIFFERENTIAL AM Draw 03/21/20 24 3:47 AM [employer] [facility] MAGNESIUM BLOOD Routine 03/20/2024 4:07 PM [employer] URIC ACID BLOOD Routine 03/20/2024 4:07 PM [employer] PHOSPHORUS BLOOD Routine 03/20/2024 4:07 PM [employer] COMPREHENSIVE METABOLIC PANEL Routine 03/20/2024 4:07 PM [employer] LDH BLOOD Routine 03/20/2024 4:07 PM [employer] [facility] [employer] DIFFERENTIAL MANUAL AM Draw 03/20/2024 6 :28 AM [employer] [facility] LDH BLOOD Routine 03/20/2024 6:28 AM [facility] PTT [facility] AM Draw 03/20/2024 6:28 AM [facility] PT-INR [facility] AM Draw 03/20/2024 6:28 AM [employer] [facility] [facility] URIC ACID BLOOD Routine 03/20/2024 6:28 AM [employer] [facility] [facility] PHOSPHORUS BLOOD Routine 03/20/2024 6:28 AM [employer] [facility] HAND MAGNESIUM BLOOD Routine 03/20/2024 6:28 AM [facility] COMPREHENSIVE METABOLIC PANEL AM Draw 03/20/2024 6:28 AM [employer] [facility] CBC W AUTO DIFFERENTIAL AM Draw 03/20/20 6:28 AM [employer] DIFFERENTIAL MANUAL AM Draw 03/19/2024 6 :23 AM [employer] [facility] LDH BLOOD Routine 03/19/2024 6:23 AM [facility] PTT [facility] AM Draw 03/19/2024 6:23 AM [facility] PT-INR [facility] AM Draw 03/19/2024 6:23 AM [employer] [facility] URIC ACID BLOOD Routine 03/19/2024 6:23 AM [facility] PHOSPHORUS BLOOD Routine 03/19/2024 6:23 AM [facility] MAGNESIUM BLOOD Routine 03/19/2024 6:23 AM [facility] COMPREHENSIVE METABOLIC PANEL AM Draw 03/19/2024 6:23 AM [facility] CBC W AUTO DIFFERENTIAL AM Draw 03/19/20 6:23 AM [facility] EKG 12-LEAD Routine 03/18/2024 1:48 PM [facility] [employer] Inverted T wave PATHOLOGY PERIPHERAL SMEAR REVIEW AM Draw 03/18/2024 8:33 AM [facility] DIFFERENTIAL MANUAL AM Draw 03/18/2024 8:33 AM [facility] LDH BLOOD Routine 03/18/2024 8:33 AM [facility] PTT [facility] AM Draw 03/18/2024 8:33 AM [facility] PT-INR [facility] AM Draw 03/18/2024 8:33 AM [facility] URIC ACID BLOOD Routine 03/18/2024 8:33 AM [employer] [facility] PHOSPHORUS BLOOD Routine 03/18/2024 8:33 AM [facility] [facility] MAGNESIUM BLOOD Routine 03/18/2024 8:33 AM [facility] COMPREHENSIVE METABOLIC PANEL AM Draw 03/18/2024 8:33 AM [facility] CBC W AUTO DIFFERENTIAL AM Draw 03/18/20 8:33 AM [facility] DIFFERENTIAL MANUAL AM Draw 03/17/2024 5 :28 AM [employer] LDH BLOOD Routine 03/17/2024 5:28 AM [facility] PTT [facility] AM Draw 03/17/2024 5:28 AM [facility] PT-INR [facility] AM Draw 03/17/2024 5:28 AM [employer] [facility] URIC ACID BLOOD Routine 03/17/2024 5:28 AM [employer] PHOSPHORUS BLOOD Routine 03/17/2024 5:28 AM [employer] [facility] HAND MAGNESIUM BLOOD Routine 03/17/2024 5:28 AM [facility] COMPREHENSIVE METABOLIC PANEL AM Draw 03/17/2024 5:28 AM [facility] CBC W AUTO DIFFERENTIAL AM Draw 03/17/20 24 5:28 AM [facility] DIFFERENTIAL MANUAL AM Draw 03/16/2024 1 2:04 AM [employer] LDH BLOOD Routine 03/16/2024 12:04 AM [facility] PTT [facility] AM Draw 03/16/2024 12:04 AM [facility] PT-INR [facility] AM Draw 03/16/2024 12:04 AM [facility] URIC ACID BLOOD Routine 03/16/2024 12:04 AM [facility] PHOSPHORUS BLOOD Routine 03/16/2024 12:0 4 AM [facility] MAGNESIUM BLOOD Routine 03/16/2024 12:04 AM [facility] COMPREHENSIVE METABOLIC PANEL AM Draw 03/16/2024 12:04 AM [facility] CBC W AUTO DIFFERENTIAL AM Draw 03/16/20 24 12:04 AM [facility] ECHO COMPLETE W CONTRAST Routine 03/15/2024 1:47 PM [facility] MDS (myelodysplastic syndrome) (HCC) MYELOID MALIGNANCIES MUTATION PNL Routine 03/15/2024 9:05 AM [facility] MDS (myelodysplastic syndrome) (HCC) FISH MDS PANEL BLOOD OR BONE MARROW Routine 03/15/2024 9:05 AM [facility] MDS (myelodysplastic syndrome) (HCC) FISH AML PANEL BLOOD OR BM RFLX PML/DANTE Routine 03/15/2024 9:05 AM [facility] MDS (myelodysplastic syndrome) (HCC) FLOW CYTOMETRY BONE MARROW Routine 03/15/2024 9:05 AM [facility] MDS (myelodysplastic syndrome) (HCC) BONE MARROW BIOPSY (STL) Routine 03/15/2024 9:05 AM [facility] MDS (myelodysplastic syndrome) (HCC) FISH PML/DANTE PANEL Routine 03/15/2024 9 :05 AM [facility] MDS (myelodysplastic syndrome) (HCC) CHROMOSOME ANALYSIS BONE MARROW PANEL Routine 03/15/2024 9:05 AM [facility] MDS (myelodysplastic syndrome) (HCC) LAB MISC TEST (NOT BLOOD) Routine 03/15/2024 9:05 AM [facility] LAB MISC TEST (NOT BLOOD) Routine 03/15/2024 9:05 AM [facility] LAB MISC TEST (NOT BLOOD) Routine 03/15/2024 9:05 AM [facility] DIFFERENTIAL MANUAL AM Draw 03/15/2024 7 :53 AM [facility] LDH BLOOD Routine 03/15/2024 7:53 AM [facility] PTT [facility] AM Draw 03/15/2024 7:53 AM [facility] PT-INR [facility] AM Draw 03/15/2024 7:53 AM [employer] [facility] URIC ACID BLOOD Routine 03/15/2024 7:53 AM [employer] PHOSPHORUS BLOOD Routine 03/15/2024 7:53 AM [employer] [facility] [facility] MAGNESIUM BLOOD Routine 03/15/2024 7:53 AM [facility] COMPREHENSIVE METABOLIC PANEL AM Draw 03/15/2024 7:53 AM [facility] CBC W AUTO DIFFERENTIAL AM Draw 03/15/20 24 7:53 AM [facility] EKG 12-LEAD STAT 03/14/2024 12:30 PM [facility] MDS (myelodysplastic syndrome) (HCC) FLOW CYTOMETRY BLOOD PROFILE Routine 03/14/2024 10:32 AM [facility] MDS (myelodysplastic syndrome) (HCC) DIFFERENTIAL MANUAL STAT 03/13/2024 1 1:26 PM [facility] LDH BLOOD Routine 03/13/2024 11:26 PM [facility] PTT SLH Routine 03/13/2024 11:26 PM [facility] PT-INR [facility] Routine 03/13/2024 11:26 PM [facility] FIBRINOGEN ACTIVITY Routine 03/13/2024 1 1:26 PM [facility] D-DIMER Routine 03/13/2024 11:26 PM [facility] URIC ACID BLOOD Routine 03/13/2024 11:26 PM [facility] PHOSPHORUS BLOOD Routine 03/13/2024 11:2 6 PM [facility] MAGNESIUM BLOOD Routine 03/13/2024 11:26 PM [facility] COMPREHENSIVE METABOLIC PANEL STAT 03/13/2024 11:26 PM [facility] CBC W AUTO DIFFERENTIAL STAT 03/13/20 24 11:26 PM [facility] QUINN-TOVAR VIRUS QUANT BLOOD STL Routine 03/13/2024 11:26 PM [facility] CYTOMEGALOVIRUS (CMV) QUANTITATIVE PLASMA Routine 03/13/2024 11:26 PM [facility] CHROMOSOME ANALYSIS LEUKEMIA BLD Routine 03/04/2024 4:13 PM [facility] MDS (myelodysplastic syndrome) (HCC) FISH PML/DANTE PANEL Routine 03/04/2024 4 :13 PM [employer] MDS (myelodysplastic syndrome) (HCC) FISH AML PANEL BLOOD OR BM RFLX PML/DANTE Routine 03/04/2024 4:13 PM [facility] MDS (myelodysplastic syndrome) (HCC) FISH AML+MDS PANEL BLOOD OR BONE MARROW Routine 03/04/2024 4:13 PM [facility] MDS (myelodysplastic syndrome) (HCC) MYELOID MALIGNANCIES MUTATION PNL STAT 03/04/2024 4:13 PM [facility] MDS (myelodysplastic syndrome) (HCC) DIFFERENTIAL MANUAL Routine 03/04/2024 4 :13 PM [facility] Neutropenia, unspecified type (HCC) BCR-ABL1 CML+AML PCR QUANT PNL Routine 03/04/2024 4:13 PM [facility] MDS (myelodysplastic syndrome) (HCC) CYTOMEGALOVIRUS ANTIBODY IGG BLOOD Routine 03/04/2024 4:13 PM [facility] MDS (myelodysplastic syndrome) (HCC) HEPATITIS C ANTIBODY Routine 03/04/2024 4:13 PM [facility] Neutropenia, unspecified type (HCC) HEPATITIS B SURFACE ANTIBODY Routine 03/04/2024 4:13 PM [facility] Neutropenia, unspecified type (HCC) HIV-1 HIV-2 ANTIBODY + HIV P24 AG PANEL Routine 03/04/2024 4:13 PM [facility] Neutropenia, unspecified type (HCC) ERYTHROCYTE SEDIMENTATION RATE Routine 03/04/2024 4:13 PM [facility] Neutropenia, unspecified type (HCC) C-REACTIVE PROTEIN Routine 03/04/2024 4: 13 PM [facility] Neutropenia, unspecified type (HCC) RHEUMATOID FACTOR BLOOD QUANTITATIVE Routine 03/04/2024 4:13 PM [facility] Neutropenia, unspecified type (HCC) MARLINE BLOOD SCREEN W/REFLEX TITER Routine 03/04/2024 4:13 PM [facility] Neutropenia, unspecified type (HCC) FERRITIN Routine 03/04/2024 4:13 PM [facility] Neutropenia, unspecified type (HCC) IRON + TRANSFERRIN PANEL Routine 03/04/2024 4:13 PM [facility] Neutropenia, unspecified type (HCC) TSH REFLEX FREE T4 Routine 03/04/2024 4: 13 PM [employer] [employer] Neutropenia, unspecified type (HCC) ZINC BLOOD Routine 03/04/2024 4:13 PM [employer] Neutropenia, unspecified type (HCC) COPPER BLOOD Routine 03/04/2024 4:13 PM [employer] Neutropenia, unspecified type (HCC) FOLATE Routine 03/04/2024 4:13 PM [employer] [facility] Neutropenia, unspecified type (HCC) VITAMIN B12 Routine 03/04/2024 4:13 PM [employer] [facility] Neutropenia, unspecified type (HCC) COMPREHENSIVE METABOLIC PANEL Routine 03/04/2024 4:13 PM [facility] Neutropenia, unspecified type (HCC) CBC W AUTO DIFFERENTIAL Routine 03/04/20 4:13 PM [facility] Neutropenia, unspecified type (HCC) HEPATITIS B CORE ANTIBODY TOTAL Routine 03/04/2024 4:13 PM [facility] Neutropenia, unspecified type (HCC) BONE MARROW BIOPSY (STL) Routine 02/12/2024 9:20 AM [facility] Illness, unspecified FLOW CYTOMETRY BONE MARROW Routine 02/12/2024 9:20 AM [facility] Decreased white blood cell count, unspecified from Last 3 Months Results * URIC ACID BLOOD (04/01/2024 3:12 PM [facility]) Only the most recent of13 resultswithin the time period is included. Uric Acid 4.0 3.5 - 7.2 mg/dL 04/01/2024 5:52 PM [facility] Blood BLOOD SPECIMEN / Unknown Lab Venipuncture / Unknown 04/01/2024 3:12 PM [facility] 04/01/2024 5:30 PM [facility] Cindy Garcia MD LAB - CHEMISTRY ORDE RABLES [address] [address], [facility] [phone] * ERYTHROPOIETIN (04/01/2024 3:12 PM [facility]) Erythropoietin 22 4 - 27 mU/mL 04/02/2024 11:36 AM [facility] Comment: INTERPRETIVE INFORMATION: Erythropoietin Normal serum concentrations of erythropoietin for 95% of individuals with normal hematocrits range from 4-27 mU/mL. As the hematocrit is lowered by iron deficiency, aplastic, or hemolytic anemia, the concentration of erythropoietin increases as shown in the graph below. In the absence of anemia, elevated concentrations are seen in renal tumors, as a manifestation of renal transplant rejection, and in secondary polycythemia. Low values may be observed in hemochromatosis. ?Expected Erythropoietin Concentrations in Patients ? with Uncomplicated Anemia ?? Erythropoietin (mU/mL) ?100,000 - + ?+ ? 10,000 - +....... ?+ ....... ?1,000 - + ?....... ?+ ? ........ ?100 - + ? ........ ?+ ?........ ? 10 - + ?........ ?+---+---+---+---+---+---+ ? 10 ?? 20 ??30 ??40 ??50 ??60 ??70 ?(Hematocrit %) ?(Contributions To Nephrology 1988:66:54-62) Decreased erythropoietin concentrations with an elevated hematocrit are observed in patients with polycythemia rubra vera, and with a decreased hematocrit in patients with HIV infection who are receiving AZT. ??Patients on AZT who have anemia and erythropoietin concentrations of less than or equal to 500 mU/mL may benefit from therapy with recombinant EPO ([facility] [id number],1989). Performed By: [facility] [address] [place] [address] Mixing Machine Tender Cork Gasket: Uche Morley MD, PhD CLIA Number: [id number] Blood BLOOD SPECIMEN / Unknown Lab Venipuncture / Unknown 04/01/2024 3:12 PM [facility] 04/01/2024 3:22 PM [facility] Cindy Garcia MD LAB - CHEMISTRY CHELI MONREAL [facility] drop.io [facility]) [address] [place] [address], [facility] * SOLUBLE TRANSFERRIN RECEPTOR (04/01/2024 3:12 PM [facility]) [facility] Soluble Transferrin Receptor 3.3 2.2 - 5.0 mg/L 04/02/2024 9:13 PM [facility] drop[facility]io ([facility]) Comment: INTERPRETIVE INFORMATION: Soluble Transferrin Receptor People of descent and those residing at 5200 feet (1600 meters) above sea level were found to have a 6% higher normal value. These differences were additive. Reference intervals have not been established for females, patients under 18 years of age, and recent or frequent blood donors. Serum soluble transferrin receptor increases in iron deficiency and is usually unaffected by chronic disease states. In general, to increase sensitivity and specificity, the measurement of serum soluble transferrin receptor should be performed in combination with other tests of iron status, including ferritin, TIBC, and serum iron. (See Table Below). ?Tests for ??Iron ? Anemia of ?Combined Iron ?Changes ?Def. ? Chronic ?Def. and anemia Analyte ?? in: ?Anemia ?? Disease ?of Chronic Dz ------- ?? -------- ?? ------ ?? --------- ? Ferritin ??Fe Stores ??Low ?High ? Normal or High TIBC ?Fe Status ??High ? Low ?Normal or High Serum Fe ??Fe Status ??Low ?Low ?Low sTfR ?Fe Status ??High ? Normal ? High Performed By: [facility] [address] [place] [address] Mixing Machine Tender Cork Gasket: Uche Morley MD, PhD CLIA Number: [id number] Blood BLOOD SPECIMEN / Unknown Lab Venipuncture / Unknown 04/01/2024 3:12 PM [facility] 04/01/2024 3:22 PM [facility] Cindy Garcia MD LAB - CHEMISTRY CHELI MONREAL [employer] ([facility]) [address] * (ABNORMAL) DIFFERENTIAL MANUAL (04/01/2024 3:12 PM [facility]) Only the most recent of11 resultswithin the time period is included. Neutrophil % 31(L) 41 - 74 % 04/01/2024 5:13 PM [facility] Lymphocyte % 60(H) 17 - 47 % 04/01/2024 5:13 PM [facility] Monocyte % 9 3 - 11 % 04/01/2024 5:13 PM [facility] Neutrophil Absolute 0.25(L) 1.60 - 7.50 x10E9/L 04/01/2024 5:13 PM [facility] Lymphocyte Absolute 0.48(L) 1.00 - 4.40 x10E9/L 04/01/2024 5:13 PM [facility] Monocyte Absolute 0.07(L) 0.15 - 1.00 x10E9/L 04/01/2024 5:13 PM [facility] RBC Morphology REVIEWED 04/01/2024 5:13 PM [facility] Jal Cells MANY(A) (none) 04/01/2024 5:13 PM [facility] Schistocytes FEW(A) (none) 04/01/2024 5:13 PM [facility] Blood BLOOD SPECIMEN / Unknown Lab Venipuncture / Unknown 04/01/2024 3:12 PM [facility] 04/01/2024 3:36 PM [facility] Cindy Garcia MD LAB - HEMATOLOGY ORD ERABLES [address] [address], [facility] [phone] * (ABNORMAL) CBC W/ DIFFERENTIAL (04/01/2024 3:12 PM [facility]) Only the most recent of12 resultswithin the time period is included. Pathologist [facility] WBC 0.8(LL) 4.0 - 10.7 x10E9/L 04/01/2024 5:17 PM [facility] RBC Count 4.17(L) 4.30 - 5.80 x10E12/L 04/01/2024 5:17 PM [facility] Hemoglobin 11.8(L) 13.3 - 17.5 g/dL 04/01/2024 5:17 PM [facility] Hematocrit 37.3(L) 38.7 - 51.1 % 04/01/2024 5:17 PM [facility] MCV 89.4 80.0 - 98.0 fL 04/01/2024 5:17 PM [facility] MCH 28.3 26.7 - 33.6 pg 04/01/2024 5:17 PM [facility] MCHC 31.6(L) 31.7 - 36.3 g/dL 04/01/2024 5:17 PM [facility] RDW-CV 17.3(H) 11.3 - 14.8 % 04/01/2024 5:17 PM [facility] Platelet Count 78(L) 150 - 420 x10E9/L 04/01/2024 5:17 PM [facility] MPV 10.8 7.8 - 11.4 fL 04/01/2024 5:17 PM [facility] Blood BLOOD SPECIMEN / Unknown Lab Venipuncture / Unknown 04/01/2024 3:12 PM [facility] 04/01/2024 3:36 PM [facility] Cindy Garcia MD LAB - HEMATOLOGY ORD ERABLES [facility] [address] [place] [address], [facility] [phone] * (ABNORMAL) COMPREHENSIVE METABOLIC PANEL (04/01/2024 3:12 PM [facility]) Only the most recent of14 resultswithin the time period is included. BUN 16 7 - 26 mg/dL 04/01/2024 4:25 PM [facility] Creatinine 1.28(H) 0.71 - 1.16 mg/dL 04/01/2024 4:25 PM [facility] Sodium 140 136 - 145 mmol/L 04/01/2024 4:25 PM [facility] Potassium 4.2 3.5 - 4.5 mmol/L 04/01/2024 4:25 PM [facility] Comment:Hemolysis detected i n this specimen. Hemolysis may cause false elevations in potassium leading to pseudohyperkalemia or masked hypokalemia. Recommend repeat testing if clinically indicated. Chloride 107 98 - 107 mmol/L 04/01/2024 4:25 PM [facility] CO2 25 22 - 29 mmol/L 04/01/2024 4:25 PM [facility] Glucose 106(H) 70 - 99 mg/dL 04/01/2024 4:25 PM [facility] Calcium 9.2 8.4 - 10.2 mg/dL 04/01/2024 4:25 PM [facility] Protein Total 7.1 6.0 - 8.3 g/dL 04/01/2024 4:25 PM [facility] Comment:Hemolysis detected i n this specimen. Hemolysis is known to cause elevations in this analyte. Caution should be exercised in the interpretation of this result. Recommend repeat testing if clinically indicated. Albumin 3.8 3.4 - 5.0 g/dL 04/01/2024 4:25 PM [facility] Bilirubin Total 0.7 0.2 - 1.2 mg/dL 04/01/2024 4:25 PM [facility] Alkaline Phosphatase 115 40 - 150 U/L 04/01/2024 4:25 PM [facility] ALT 34 5 - 55 U/L 04/01/2024 4:25 PM [facility] AST 30 5 - 34 U/L 04/01/2024 4:25 PM [facility] Comment:Hemolysis detected i n this specimen. Hemolysis is known to cause elevations in this analyte. Caution should be exercised in the interpretation of this result. Recommend repeat testing if clinically indicated. Anion Gap 8 6 - 16 04/01/2024 4:25 PM [facility] BUN/Creatinine Ratio 13 7 - 23 03/11 4:25 PM [facility] Osmolality Calculated 292 275 - 295 mOsm/kg 04/01/2024 4:25 PM [facility] Albumin/Globulin Ratio 1.2 1.1 - 2.3 04/01/2024 4:25 PM [facility] eGFR by CKD-EPI 57(L) >=90 mL/min/1 .73 m2 04/01/2024 4:25 PM [facility] Blood BLOOD SPECIMEN / Unknown Lab Venipuncture / Unknown 04/01/2024 3:12 PM [facility] 04/01/2024 3:36 PM [facility] Cindy Garcia MD LAB - CHEMISTRY CHELI MONREAL Performing Organization Address City/[facility]/ZIP Co de Phone Number [facility] [address] [place] [address], [place] [phone] * PHOSPHORUS BLOOD (04/01/2024 3:12 PM [facility]) Only the most recent of13 resultswithin the time period is included. Phosphorus 2.9 2.8 - 5.1 mg/dL 04/01/2024 5:52 PM [facility] Blood BLOOD SPECIMEN / Unknown Lab Venipuncture / Unknown 04/01/2024 3:12 PM [facility] 04/01/2024 5:30 PM [facility] Cindy Garcia MD LAB - CHEMISTRY CHELI MONREAL Performing Organization Address [facility] Co de Phone Number [address] [address], [place] [phone] * MAGNESIUM BLOOD (04/01/2024 3:12 PM [facility]) Only the most recent of13 resultswithin the time period is included. Magnesium 2.1 1.6 - 2.6 mg/dL 04/01/2024 4:25 PM [facility] Comment:Hemolysis detected i n this specimen. Hemolysis is known to cause elevations in this analyte. Caution should be exercised in the interpretation of this result. Recommend repeat testing if clinically indicated. Blood BLOOD SPECIMEN / Unknown Lab Venipuncture / Unknown 04/01/2024 3:12 PM [facility] 04/01/2024 3:36 PM [facility] Cindy Garcia MD LAB - CHEMISTRY CHELI MONREAL [address] [address], [place] [phone] * LAB RESULTS ORDER (03/25/2024) 03/25/2024 Narrative 03/25/2024 Ordered by an unspecified provider. Scanned Document LAB - THERAPEUTIC DR UG MONITORING ORDERABLES * PTT [facility] (03/23/2024 12:25 AM [facility]) Only the most recent of10 resultswithin the time period is included. APTT 35.4 23.0 - 38.4 Seconds 03/23/2024 1:31 AM [facility] Comment:Suggested therapeuti c range for full dose I.V. unfractionated heparin therapy for venous 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 is 71 to 109 seconds. Blood BLOOD SPECIMEN / Unknown Venipuncture / Unknown 03/23/2024 12:25 AM [facility] 03/23/2024 1:05 AM [facility] Ghanshyam Dewey PA-C LAB - COAGULATION OR DERABLES Performing Organization Address [facility] de Phone Number [address] [phone] [phone] * (ABNORMAL) PT-INR [facility] (03/23/2024 12:25 AM [facility]) Only the most recent of10 resultswithin the time period is included. PT 17.2(H) 12.1 - 14.8 Seconds 03/23/2024 1:31 AM [facility] INR 1.4 See Comment 03/23/2024 1:31 AM [facility] Comment:The suggested therap eutic range for standard coumadin (warfarin) therapy is an INR of 2.0-3.0. For high-risk patients (Mechanical Mitral Valve Prosthesis, etc.), the suggested prophylactic therapeutic range is an INR of 2.5-3.5. Blood BLOOD SPECIMEN / Unknown Venipuncture / Unknown 03/23/2024 12:25 AM [facility] 03/23/2024 1:05 AM [facility] Ghanshyam Dewey PA-C LAB - COAGULATION OR DERABLES Performing Organization Address [facility] Co de Phone Number [address] [address], [facility] [phone] * LDH BLOOD (03/23/2024 12:25 AM [facility]) Only the most recent of12 resultswithin the time period is included. [facility] LDH Total 173 125 - 243 Units/L 03/23/2024 1:36 AM [facility] Blood BLOOD SPECIMEN / Unknown Venipuncture / Unknown 03/23/2024 12:25 AM [facility] 03/23/2024 1:07 AM [facility] Josh Momin MD LAB - CHEMISTRY ORD ERABLES [address] [address], [facility] [phone] * EKG 12-LEAD (03/18/2024 1:48 PM [facility]) Only the most recent of2 resultswithin the time period is included. [facility] Ventricular Rate 75 BPM [facility] Atrial Rate 75 BPM [facility] P-R Interval 122 ms [facility] QRS Duration ms 118 ms [facility] Q-T Interval ms 410 ms [facility] QTC Calculation (Bezet) 457 ms [facility] Calculated P [place] 42 degrees [facility] Calculated R [place] 36 degrees [facility] Calculated T [place] -134 degrees [facility] Interpretation EKG NORMAL SINUS RHYTHM WITH SINUS ARRHYTHMIA INCOMPLETE RIGHT BUNDLE BRANCH BLOCK ST & MARKED T WAVE ABNORMALITY, CONSIDER ANTEROLATERAL ISCHEMIA ABNORMAL ECG NO PREVIOUS ECGS AVAILABLE Confirmed by ROVERTO BELTRE MD ([id number]) on 03/22/2024 12:50:34 PM [facility] 03/18/2024 1:48 PM [facility] 03/22/2024 12:50 PM [facility] Caity Ortiz HOT DIP PLATER-SUPPLY CHAIN ASSOCIATE ECG ORDERABL ES [facility] * PATHOLOGY PERIPHERAL SMEAR REVIEW (03/18/2024 8:33 AM [facility]) [facility] Path Review Confirmed 03/18/2024 2:44 PM [facility] Blood BLOOD SPECIMEN / Unknown Lab Venipuncture / Unknown 03/18/2024 8:33 AM [facility] 03/18/2024 8:46 AM [facility] Narrative [facility] - 03/18/2024 2:44 PM [facility] A rare blast seen. Ghanshyam Dewey PA-C LAB - PATHOLOGY/CYTO LOGY ORDERABLES Performing Organization Address [facility]/ZIP Co de Phone Number [facility] [address] [place] [phone], [facility] [phone] * ECHO COMPLETE W CONTRAST (03/15/2024 1:47 PM [facility]) IVSd 2D 1.314 cm SSM CV FUJ I PACS LVIDd 5.186 cm SSM CV FUJ I PACS LVIDs 3.212 cm SSM CV FUJ I PACS LVOT diam 2.086 cm SSM CV FUJ I PACS LVPWd 1.34 cm SSM CV FUJ I PACS LV biplane EF 72.906 % SSM CV FUJI PACS LV A2C EF 72.639 % SSM CV FUJ I PACS LV A4C EF 72.078 % SSM CV FUJ I PACS LV EDV A2C 124.945 ml SSM CV FU JI PACS LV EDV A4C 128.559 ml SSM CV FU JI PACS LV ESV A2C 34.187 ml SSM CV FU JI PACS LV ESV A4C 35.897 ml SSM CV FU JI PACS LVOT pk lawanda 132.418 cm/s SSM CV F UJI PACS LVOT VTI 32.536 cm SSM CV FUJ I PACS RVIDd 3.985 cm SSM CV FUJ I PACS RVOT pk lawanda 69.928 cm/s SSM CV F UJI PACS RVOT VTI 14.149 cm SSM CV FUJ I PACS LA size 3.887 cm SSM CV FUJ I PACS LA vol BP 103.263 ml SSM CV FUJ I PACS RA area 17.733 cm? ? ? SSM CV FUJI PACS AV pk lawanda regurg 205.453 cm/s SSM CV FUJI PACS AR VTI 104.216 cm SSM CV FUJ I PACS AV mn grad 5.22 mmHg SSM CV FU JI PACS AV pk lawanda 141.499 cm/s SSM CV FUJ I PACS AV VTI 30.145 cm SSM CV FUJ I PACS MV A pk lawanda 84.582 cm/s SSM CV F UJI PACS MV E pk lawanda 99.639 cm/s SSM CV F UJI PACS MV E' lateral lawanda 5.461 cm/s SSM CV FUJI PACS MV mn grad 1.183 mmHg SSM CV FU JI PACS MV VTI 30.572 cm SSM CV FUJ I PACS PV pk lawanda 84.446 cm/s SSM CV FUJ I PACS PV VTI 18.271 cm SSM CV FUJ I PACS TAPSE 1.78 cm SSM CV FUJ I PACS TR pk lawanda 276.773 cm/s SSM CV FUJ I PACS Ascending aorta 3.799 cm SSM CV FUJI PACS LA vol index 0.046 l/m? ? ? SSM CV FUJI PACS Myocardial strain charge 2 unitless SSM CV FUJI PACS Sinus of Valsalva 3.4 cm SSM CV FUJI PACS ST junction 3.4 cm SSM CV F UJI PACS Anatomical Region Laterality Modality Ultrasound 03/15/2024 2:04 PM [facility] Narrative 03/15/2024 5:17 PM [facility] Summary ??* The left ventricle is normal in size, with hyperdynamic systolic function and an estimated ejection fraction of 73 % by biplane method of disks. Left ventricular wall motion is normal. ??* The left ventricular mass is mildly increased with concentric hypertrophy with a prominent basal septum. ??* The left ventricular diastolic function is consistent with grade II diastolic dysfunction. ??* Right ventricle is normal in size with normal systolic function. ??* The left atrium is moderately dilated with a left atrial volume index of 46 ml/m2 by BP MOD. ??* The pulmonary artery systolic pressure is mildly elevated, 39 mmHg. ??* There is mild tricuspid valve regurgitation. Patient Info Name: ? Russ Kern Age: ? 78 years : ? 1945 Gender: ? Male Accession #: ? [id number] Ht: ? 72 in Wt: ? 218 lb BSA: ? 2.26 m2 HR: ? 65 bpm BP: ? 103 / ? 55 mmHg Exam Date: ? 03/15/2024 2:04 PM Patient Status: ? I/P Study Site: ? [facility] Primary Location: ? [facility] EStudy Info Technical Quality: ? Adequate Exam Type: ? ECHO COMPLETE W CONTRAST Indications ?D46.9 - MDS (myelodysplastic syndrome) (HCC) Procedure(s) ??* A complete 2D, color Doppler, spectral Doppler and M-Mode transthoracic echocardiogram was performed with an Ultrasound Enhancing Agent (UEA). Contrast/Agitated Saline Contrast / Saline: ? Definity Amount: ? 0.50 ml Administered By: ? Dhruv Sorto Reaction to Contrast: ? no Reason for Technically Difficult ??Study: ? body habitus Staff Referring Physician: ? Ted Soler Ordering Provider: ? Ted Soler Attending Physician: ? Ted Soler Fellow: ? Josh Knight Sound Truck Operator: ? Dhruv Sorto Left Ventricle ??Left ventricular systolic function is hyperdynamic with an estimated ejection fraction of 73 % by biplane method of disks. The left ventricle is normal in size. The left ventricular mass is mildly increased with concentric hypertrophy with a prominent basal septum. Left ventricular segmental wall motion is normal. The left ventricular diastolic function is consistent with grade II diastolic dysfunction. Right Ventricle ??The right ventricle is normal in size. Right ventricular systolic function is normal. Ventricular Septum ??Intact interventricular septum visualized by 2D and color Doppler imaging. Left Atrium ??The left atrium is moderately dilated with a left atrial volume index of 46 ml/m2 by BP MOD. Right Atrium ??The right atrium is normal in size. Atrial Septum ??Interatrial septum not well visualized. Aortic Valve ??The aortic valve is trileaflet and mildly calcified. There is trace aortic valve regurgitation. There is no aortic valve stenosis with a peak velocity of 1 m/s, mean gradient of 5 mmHg, and aortic valve area of 3.69 cm2. Pulmonic Valve ??The pulmonic valve is not well visualized. There is no pulmonic valve stenosis. There is mild pulmonic regurgitation. Mitral Valve ??The mitral valve is normal. Non-obstructive systolic anterior motion of the mitral chordae. There is mild mitral annular calcification. There is no mitral valve stenosis. There is trace mitral valve regurgitation. Tricuspid Valve ??The tricuspid valve is normal. There is no tricuspid valve stenosis. There is mild tricuspid valve regurgitation. The pulmonary artery systolic pressure is mildly elevated, 39 mmHg. Inferior Vena Cava ??The inferior vena cava is not well visualized and therefore the right atrial pressure is assumed to be 8 mmHg. Pericardium/Pleural ??There is a trivial pericardial effusion. Aorta ??The ascending aorta is normal in size. The aortic root at the sinus of Valsalva is normal in size measuring 3.4 cm with an index of 1.5 cm/m2. The ascending aorta is normal in size measuring 3.8 cm with an index of 1.7 cm/m2. Measurements Left Ventricular Outflow Tract Name ? Value ?Normal LVOT 2D LVOT Diameter ? 2.1 cm ? LVOT Area ?3.4 cm2 ? LVOT Doppler LVOT Peak Velocity ? 1.3 m/s ? LVOT Peak Gradient ?7 mmHg ? LVOT Mean Velocity ?85.49 cm/s ? LVOT Mean Gradient ?3 mmHg ? LVOT VTI ? 32.5 cm ? LVOT VTI/AV VTI Ratio ?1.1 ? LVOT Stroke Volume ?111 ml ? LVOT Stroke Volume Index ?49 ml/m2 ? 35-58 LVOT CO ?7.2 l/min ? LVOT CI ? 3.2 l/min/m2 Pulmonic Valve Name ? Value ?Normal RVOT Doppler RVOT Peak Velocity ? 0.7 m/s ? RVOT Peak Gradient ?2 mmHg ? RVOT Mean Gradient ?1 mmHg ? PV Doppler PV Peak Velocity ? 0.8 m/s ? PV Peak Gradient ?3 mmHg ? PV Mean Gradient ?2 mmHg Mitral Valve Name ? Value ?Normal MV Doppler MV Peak Gradient ?4 mmHg ? MV Mean Gradient ?1 mmHg ? MV DI (VTI) ? 0.94 ? MV PHT ? 44 ms ? MV Area (PHT) ? 5.05 cm2 ? 4.00-5.00 MV Area (Cont Eq VTI) ? 3.64 cm2 ? MV Diastolic Function MV E Peak Velocity ? 1.0 m/sec ? MV A Peak Velocity ? 0.8 m/sec ? MV E/A ? 1.2 ? MV Decel Time (PW) ?199 ms ? MV A Wave Duration ?114 ms ? MV Annular TDI MV Septal e' Velocity ? 5 cm/s ? >=8 MV E/e' (Septal) ?19 ? <=8 MV Lateral e' Velocity ?5 cm/s ?>=10 MV E/e' (Lateral) ? 18 ? <=8 MV e' Average ? 5 cm/s ? MV E/e' (Average) ? 19 Tricuspid Valve Name ? Value ?Normal TV Regurgitation Doppler TR Peak Velocity ? 2.8 m/s ? TR Peak Gradient ? 31 mmHg ? Estimated PAP/RSVP RA Pressure ? 8 mmHg ? <=5 PA Systolic Pressure ? 39 mmHg ? <35 RV Systolic Pressure ? 39 mmHg ? <36 TV Annular TDI TV Lateral Kanika s' Velocity ? 12 cm/s ? 10-19 Aorta Name ? Value ?Normal Ascending Aorta Sinus of Valsalva Diameter ?3.4 cm ? 2.8-4.0 Sinus of Valsalva Index ?1.5 cm/m2 ? 1.3-2.1 Ao Sinotub Junction Diameter ?3.4 cm ? 2.6-3.2 Asc Ao Diameter ? 3.8 cm ? 2.2-3.8 Asc Ao Diameter Index ?1.7 cm/m2 ? 1.1-1.9 Aortic Valve Name ? Value ?Normal AV 2D/MM AV Cusp Sep (MM) ?2.2 cm ? AV Doppler AV Peak Velocity ?1.41 m/s ? AV Peak Gradient ?8 mmHg ? AV Mean Gradient ?5 mmHg ? AV VTI ? 30 cm ? AV Area (Cont Eq VTI) ? 3.69 cm2 ?>=2.00 AV Area (Cont Eq Lawanda) ? 3.20 cm2 ? AV DI (VTI) ? 1.08 ? AV DI (Lawanda) ? 0.94 ? AV Regurgitation 2D LVOT Area ? 3.42 cm2 Ventricles Name ? Value ?Normal LV Dimensions 2D/MM IVS Diastolic Thickness (2D) ?1.3 cm ? 0.6-1.0 LVID Diastole (2D) ?5.2 cm ? 4.2-5.8 LVPW Diastolic Thickness (2D) ?1.3 cm ? 0.6-1.0 IVS Systolic Thickness (2D) ? 1.9 cm ? LVID Systole (2D) ? 3.2 cm ? 2.5-4.0 LVPW Systolic Thickness (2D) ?1.8 cm ? LV Mass (2D Cubed) ? 272 g ?88-224 LV Mass Index (2D Cubed) ?120 g/m2 ?49-115 Relative Wall Thickness (2D) ?0.52 ?<=0.42 LV Fractional Shortening/Ejection Fraction 2D/MM LV Fractional Shortening (2D) ?38 % ? 25-43 LV EF (2D Teicholz) ? 68 % ? 52-72 LV Diastolic Volume (4C MOD) ?129 ml ? LV EF (4C MOD) ?72 % ? LV Diastolic Volume (2C MOD) ?125 ml ? LV EF (2C MOD) ?73 % ? LV Diastolic Volume (BP MOD) ?129 ml ?62-150 LV Diastolic Volume Index (BP MOD) ?57 ml/m2 ? 34-74 LV Systolic Volume (BP MOD) ?35 ml ? 21-61 LV Systolic Volume Index (BP MOD) ?15 ml/m2 ? 11-31 LV EF (BP MOD) ?73 % ? 52-72 LV Diastolic Length (4C) ?7.7 cm ? LV Systolic Length (4C) ? 6.7 cm ? LV Stroke Volume (4C MOD) ?93 ml ? RV Dimensions 2D/MM RVID Diastole (2D) ?4.0 cm ? 2.5-3.5 RVID Systole (2D) ? 2.8 cm ? TAPSE ? 1.8 cm ? >=1.7 Atria Name ? Value ?Normal LA Dimensions LA Dimension (2D) ? 3.9 cm ? 3.0-4.1 LA Dimen Index (2D) ?1.7 cm/m2 ? LA Volume (BP MOD) ?103 ml ? LA Volume Index (BP MOD) ?46 ml/m2 ? 16-34 RA Dimensions RA Area (4C) ?18 cm2 ?<=18 RA Area (4C) Index ?8 cm2/m2 Report Signatures Finalized by Gavi ??Consuelo on 03/15/2024 05:17 PM Reviewed by Fellow Josh ??Yesbola on 03/15/2024 04:56 PM Procedure Note Gavi Cordero MD - 03/15/2024 Summary * The left ventricle is normal in size, with hyperdynamic systolicfunction and an estimated ejection fraction of 73 % by biplane method of disks.Left ventricular wall motion is normal. * The left ventricular mass is mildly increased with concentrichypertrophy with a prominent basal septum. * The left ventricular diastolic function is consistent with grade II diastolic dysfunction. * Right ventricle is normal in size with normal systolic function. * The left atrium is moderately dilated with a left atrial volume indexof 46 ml/m2 by BP MOD. * The pulmonary artery systolic pressure is mildly elevated, 39 mmHg. * There is mild tricuspid valve regurgitation. Patient Info Name: Russ Kern Age: 78 years : 1945 Gender: Male Ht: 72 in Wt: 218 lb BSA: 2.26 m2 HR: 65 bpm BP: 103 / 55 mmHg Exam Date: 03/15/2024 2:04 PM Patient Status: I/P Study Site: [facility] Primary Location: [facility] EStudy Info Technical Quality: Adequate Exam Type: ECHO COMPLETE W CONTRAST Indications D46.9 - MDS (myelodysplastic syndrome) (HCC) Procedure(s) * A complete 2D, color Doppler, spectral Doppler and M-Modetransthoracic echocardiogram was performed with an Ultrasound Enhancing Agent (UEA). Contrast/Agitated Saline Contrast / Saline: Definity Amount: 0.50 ml Administered By: Dhruv Sorto Reaction to Contrast: no Reason for Technically Difficult Study: body habitus Staff Referring Physician: Ted Soler Ordering Provider: Ted Soler Attending Physician: Ted Soler Fellow: Josh Knight Sound Truck Operator: Dhruv Sorto Left Ventricle Left ventricular systolic function is hyperdynamic with an estimated ejection fraction of 73 % by biplane method of disks. The left ventricleis normal in size. The left ventricular mass is mildly increased withconcentric hypertrophy with a prominent basal septum. Left ventricular segmentalwall motion is normal. The left ventricular diastolic function is consistentwith grade II diastolic dysfunction. Right Ventricle The right ventricle is normal in size. Right ventricular systolicfunction is normal. Ventricular Septum Intact interventricular septum visualized by 2D and color Dopplerimaging. Left Atrium The left atrium is moderately dilated with a left atrial volume index of46 ml/m2 by BP MOD. Right Atrium The right atrium is normal in size. Atrial Septum Interatrial septum not well visualized. Aortic Valve The aortic valve is trileaflet and mildly calcified. There is traceaortic valve regurgitation. There is no aortic valve stenosis with a peakvelocity of 1 m/s, mean gradient of 5 mmHg, and aortic valve area of 3.69 cm2. Pulmonic Valve The pulmonic valve is not well visualized. There is no pulmonic valve stenosis. There is mild pulmonic regurgitation. Mitral Valve The mitral valve is normal. Non-obstructive systolic anterior motion ofthe mitral chordae. There is mild mitral annular calcification. There is nomitral valve stenosis. There is trace mitral valve regurgitation. Tricuspid Valve The tricuspid valve is normal. There is no tricuspid valve stenosis.There is mild tricuspid valve regurgitation. The pulmonary artery systolicpressure is mildly elevated, 39 mmHg. Inferior Vena Cava The inferior vena cava is not well visualized and therefore the rightatrial pressure is assumed to be 8 mmHg. Pericardium/Pleural There is a trivial pericardial effusion. Aorta The ascending aorta is normal in size. The aortic root at the sinus of Valsalva is normal in size measuring 3.4 cm with an index of 1.5 cm/m2.The ascending aorta is normal in size measuring 3.8 cm with an index of 1.7cm/m2. Measurements Left Ventricular Outflow Tract Name Value Normal LVOT 2D LVOT Diameter 2.1 cm LVOT Area 3.4 cm2 LVOT Doppler LVOT Peak Velocity 1.3 m/s LVOT Peak Gradient 7 mmHg LVOT Mean Velocity 85.49 cm/s LVOT Mean Gradient 3 mmHg LVOT VTI 32.5 cm LVOT VTI/AV VTI Ratio 1.1 LVOT Stroke Volume 111 ml LVOT Stroke Volume Index 49 ml/m2 35-58 LVOT CO 7.2 l/min LVOT CI 3.2 l/min/m2 Pulmonic Valve Name Value Normal RVOT Doppler RVOT Peak Velocity 0.7 m/s RVOT Peak Gradient 2 mmHg RVOT Mean Gradient 1 mmHg PV Doppler PV Peak Velocity 0.8 m/s PV Peak Gradient 3 mmHg PV Mean Gradient 2 mmHg Mitral Valve Name Value Normal MV Doppler MV Peak Gradient 4 mmHg MV Mean Gradient 1 mmHg MV DI (VTI) 0.94 MV PHT 44 ms MV Area (PHT) 5.05 cm2 4.00-5.00 MV Area (Cont Eq VTI) 3.64 cm2 MV Diastolic Function MV E Peak Velocity 1.0 m/sec MV A Peak Velocity 0.8 m/sec MV E/A 1.2 MV Decel Time (PW) 199 ms MV A Wave Duration 114 ms MV Annular TDI MV Septal e' Velocity 5 cm/s >=8 MV E/e' (Septal) 19 <=8 MV Lateral e' Velocity 5 cm/s >=10 MV E/e' (Lateral) 18 <=8 MV e' Average 5 cm/s MV E/e' (Average) 19 Tricuspid Valve Name Value Normal TV Regurgitation Doppler TR Peak Velocity 2.8 m/s TR Peak Gradient 31 mmHg Estimated PAP/RSVP RA Pressure 8 mmHg <=5 PA Systolic Pressure 39 mmHg <35 RV Systolic Pressure 39 mmHg <36 TV Annular TDI TV Lateral Kanika s' Velocity 12 cm/s 10-19 Aorta Name Value Normal Ascending Aorta Sinus of Valsalva Diameter 3.4 cm 2.8-4.0 Sinus of Valsalva Index 1.5 cm/m2 1.3-2.1 Ao Sinotub Junction Diameter 3.4 cm 2.6-3.2 Asc Ao Diameter 3.8 cm 2.2-3.8 Asc Ao Diameter Index 1.7 cm/m2 1.1-1.9 Aortic Valve Name Value Normal AV 2D/MM AV Cusp Sep (MM) 2.2 cm AV Doppler AV Peak Velocity 1.41 m/s AV Peak Gradient 8 mmHg AV Mean Gradient 5 mmHg AV VTI 30 cm AV Area (Cont Eq VTI) 3.69 cm2 >=2.00 AV Area (Cont Eq Lawanda) 3.20 cm2 AV DI (VTI) 1.08 AV DI (Lawanda) 0.94 AV Regurgitation 2D LVOT Area 3.42 cm2 Ventricles Name Value Normal LV Dimensions 2D/MM IVS Diastolic Thickness (2D) 1.3 cm 0.6-1.0 LVID Diastole (2D) 5.2 cm 4.2-5.8 LVPW Diastolic Thickness (2D) 1.3 cm 0.6-1.0 IVS Systolic Thickness (2D) 1.9 cm LVID Systole (2D) 3.2 cm 2.5-4.0 LVPW Systolic Thickness (2D) 1.8 cm LV Mass (2D Cubed) 272 g 88-224 LV Mass Index (2D Cubed) 120 g/m2 49-115 Relative Wall Thickness (2D) 0.52 <=0.42 LV Fractional Shortening/Ejection Fraction 2D/MM LV Fractional Shortening (2D) 38 % 25-43 LV EF (2D Teicholz) 68 % 52-72 LV Diastolic Volume (4C MOD) 129 ml LV EF (4C MOD) 72 % LV Diastolic Volume (2C MOD) 125 ml LV EF (2C MOD) 73 % LV Diastolic Volume (BP MOD) 129 ml 62-150 LV Diastolic Volume Index (BP MOD) 57 ml/m2 34-74 LV Systolic Volume (BP MOD) 35 ml 21-61 LV Systolic Volume Index (BP MOD) 15 ml/m2 11-31 LV EF (BP MOD) 73 % 52-72 LV Diastolic Length (4C) 7.7 cm LV Systolic Length (4C) 6.7 cm LV Stroke Volume (4C MOD) 93 ml RV Dimensions 2D/MM RVID Diastole (2D) 4.0 cm 2.5-3.5 RVID Systole (2D) 2.8 cm TAPSE 1.8 cm >=1.7 Atria Name Value Normal LA Dimensions LA Dimension (2D) 3.9 cm 3.0-4.1 LA Dimen Index (2D) 1.7 cm/m2 LA Volume (BP MOD) 103 ml LA Volume Index (BP MOD) 46 ml/m2 16-34 RA Dimensions RA Area (4C) 18 cm2 <=18 RA Area (4C) Index 8 cm2/m2 Report Signatures Finalized by Gavi Cordero on 03/15/2024 05:17 PM Reviewed by Fellow Josh Knight on 03/15/2024 04:56 PM Ted Soler MD ECHO CUPID * FISH MDS PANEL BLOOD OR BONE MARROW (03/15/2024 9:05 AM [facility]) Pathologist [facility] MDS Panel by Fish See Note Normal 024 11:26 AM [facility] [employer] ([facility]) Comment: Test Performed: Myelodysplastic Syndrome (MDS) Panel by FISH (FISH MDS P) Specimen Type: Bone Marrow Indication for Testing: Myelodysplastic syndrome, unspecified RESULT Normal FISH Result Deletion 5q: ??not detected Monosomy 7: ??not detected Deletion 7q: ??not detected Trisomy 8: ??not detected Deletion 20q: ??not detected INTERPRETATION There was no evidence of deletion 5q31, monosomy 7, deletion 7q31, trisomy 8, or deletion 94z31-l39.1. This analysis was performed with the MDS panel probes D5S23/EGR1, D7Z1/E3H625, CEP8 ([employer]), and Del(20q) ([employer]). A total of 200 cells were scored for each probe. Cytogenomic Nomenclature (ISCN): nuc nereyda(D5S23,EGR1,D7Z1,V6K110,D8Z2,Q02B712,MYBL2)x2[200' This result has been reviewed and approved by Nabila Gonzalez, PhD, [facility] A portion of this analysis was performed at the following location(s): [facility] CG-WA#2 INTERPRETIVE INFORMATION: MDS Panel by FISH This test was developed and its performance characteristics determined by [facility]. It has not been cleared or approved by the US Food and Drug Administration. This test was performed in a CLIA certified laboratory and is intended for clinical purposes. EER MDS Fish Panel See Note 2023 11:26 AM [facility] [employer] ([facility]) Comment: Authorized individuals can access the [employer] Enhanced Report using the following link: [email or web address] Performed By: [facility] [address] [place] [address] Mixing Machine Tender Cork Gasket: Uche Morley MD, PhD [place] Number: [id number] Other BONE MARROW SPECIMEN / Unknown Collection / Unknown 03/15/2024 9:05 AM [facility] 03/15/2024 9:30 AM [facility] Rodo Perez MD LAB - PATHOLOG Y/CYTOLOGY ORDERABLES [employer] [facility]) [address] [place] [address], [facility] * FISH AML PANEL BLOOD OR BM RFLX PML/DANTE (03/15/2024 9:05 AM [facility]) Only the most recent of2 resultswithin the time period is included. FISH AML Panel See Note Normal 03/25/2024 10:34 AM [facility] [employer] ([facility]) Comment: Test Performed: Acute Myeloid Leukemia Panel by FISH (FISHAML) Specimen Type: Bone Marrow Indication for Testing: Myelodysplastic syndrome, unspecified RESULT Normal FISH Result inv(3) or t(3;3) GATA2::MECOM Fusion: ??not detected Deletion 5q: ??not detected Monosomy 7: ??not detected Deletion 7q: ??not detected t(8;21) RUNX1::GRFZ0L1 Fusion: ??not detected 11p15 (NUP98) Rearrangement: ??not detected 11q23 (KMT2A) Rearrangement: ??not detected inv(16) or t(16;16) CBFB::MYH11 Fusion: ??not detected INTERPRETATION There was no evidence of GATA2::MECOM (also known as RPN1-EVI1) fusion due to 3q21/3q26.2 inversion or translocation, deletion 5q31, monosomy 7, deletion 7q31, RUNX1::UNLA1U1 fusion due to translocation (8;21)(q21.3;q22), 11p15 (NUP98) rearrangement, 11q23 KMT2A (MLL) rearrangement, or CBFB::MYH11 fusion due to either 16p13.1/16q22 inversion or translocation. This analysis was performed with the AML panel probes RPN1/MECOM, D5S23/EGR1, D7Z1/T6P705, RUNX1/RSNA8U5 ([employer]), NUP98 and CBFB-MYH11 ([employer]), and MLL (KMT2A) ([employer]). A total of 200 cells were scored for each probe. Cytogenomic Nomenclature (ISCN): nuc nereyda(RPN1,MECOM,D5S23,EGR1,D7Z1,A0O742,AUUA1O2,NUP98,KMT2A,MYH11,CBF B,RUNX1)x2[200' This result has been reviewed and approved by Mundo Mejia, PhD, [employer] A portion of this analysis was performed at the following location(s): [facility] -CO#1 INTERPRETIVE INFORMATION: AML Panel by FISH This test was developed and its performance characteristics determined by [facility]. It has not been cleared or approved by the US Food and Drug Administration. This test was performed in a CLIA certified laboratory and is intended for clinical purposes. EER AML Panel by FISH See Note 03/25/2024 10:34 AM [facility] [employer] ([facility]) Comment: Authorized individuals can access the [employer] Enhanced Report using the following link: [email or web address] Performed By: [facility] [address] [place] [address] Mixing Machine Tender Cork Gasket: Uche Morley MD, PhD IA Number: [id number] Other BONE MARROW SPECIMEN / Unknown Collection / Unknown 03/15/2024 9:05 AM [facility] 03/15/2024 9:30 AM [facility] Rodo Perez MD LAB - PATHOLOG Y/CYTOLOGY ORDERABLES [email or web address] ([facility]) [address] [place] [address], [facility] * FLOW CYTOMETRY BONE MARROW (03/15/2024 9:05 AM [facility]) Only the most recent of2 resultswithin the time period is included. Case Report Flow Cytometry ?Case: [id number] ? Authorizing Provider: ??Rodo Perez, ?? Collected: ? 03/15/2024 09:05 AM ? MD ? Ordering Location: ? [facility] AC[facility] ? Received: ?03/15/2024 09:30 AM ? Pathologist: ? Angeles Rosado MD ? Specimen: ?Bone Marrow ? 03/15/2024 2:40 PM [facility] Final Diagnosis Bone marrow, flow cytometric immunophenotypic analysis: - Paucicellular specimen with increased myeloblasts detected (42.4% of events) - See interpretation 03/15/2024 2:40 PM [facility] Flow Cytometry Interpretation Viability: 92%, with a cell count of only 980 cells/uL. B-cells: polytypic, kappa:lambda ratio 1.5:1 Blasts comprise 42.4% of events and express CD33, CD13, CD34, CD117, CD11c, CD56 (dim), and myeloperoxidase (small subset). These cells lack significant co-expression of CD10, CD19, CD20, CD5, CD11b, CD14, CD64, CD2, CD7, HLA-DR, TdT, cCD22, cCD79a, and cCD3. A bone marrow aspirate smear prepared from the flow cytometry specimen has been reviewed for automotive quality manager purposes. Correlation with the concurrent bone marrow biopsy ([id number]) is required. 03/15/2024 2:40 PM [facility] Flow Cytometry Results Differential Result Comment Flow Cell Count /uL 980 Total Viability % 92.0 Lymphocytes % 13 Dim CD45 Region % 55 Monocytes % 2 Granulocytes % 28 03/15/2024 2:40 PM [facility] Reason for test MDS (myelodysplastic syndrome) (HCC) 238.75 03/15/2024 2:40 PM [facility] Client Specimen ID # [id number] 03/15/2024 2:40 PM [facility] Number of markers 24 were performed. A-2 Flow CD10 A-3 Flow CD13 A-5 Flow CD20 A-11 Flow CD2 A-13 Flow CD14 A-16 Flow CD117 A-17 Flow CD11b A-18 Flow CD11c A-1 Flow CD5 A-4 Flow CD19 A-6 Flow CD33 A-7 Flow CD34 A-8 Flow CD45 A-12 Flow CD7 A-14 Flow CD56 A-15 Flow CD64 A-23 cyCD22 A-24 jyGR92y A-9 [place]+CD19+ A-10 Lambda+CD19+ A-19 Flow HLA-DR A-20 Flow MPO A-21 Flow TdT A-22 cyCD3 03/15/2024 2:40 PM [facility] Pathologist Location at [facility] 03/15/2024 2:40 PM [facility] Disclaimer Test performed at [facility], [address] [place] [address], [address]. *The established laboratory minimum viability is 70%. Values below the minimum may result in the failure to find an abnormal population of cells. This test was developed and its performance characteristics determined by the Flow Cytometry Laboratory. It has not been cleared by the [place] Food and Drug Administration (FDA). The FDA has determined that such clearance or approval is not necessary. This test is used for clinical purposes. It should not be regarded as investigational or for research. This laboratory is regulated under the Clinical Laboratory Improvement Amendments of 1998 (CLIA) as a qualified to perform high complexity clinical testing. 03/15/2024 2:40 PM [facility] Embedded Images 2:40 PM [facility] Pathology/Cytolo gy BONE MARROW SPECIMEN / Unknown Collection / Unknown 03/15/2024 9:05 AM [facility] 03/15/2024 9:30 AM [facility] Rodo Perez MD LAB - PATHOLOG Y/CYTOLOGY ORDERABLES Performing Organization Address [facility]/State/ZIP Co de Phone Number [facility] [address] [place] [id number], [facility] [phone] * BONE MARROW BIOPSY (STL) (03/15/2024 9:05 AM [facility]) Only the most recent of2 resultswithin the time period is included. Case Report Bone Marrow Patholog y Report ?Case: [id number] ? Authorizing Provider: ??Rodo Perez, ?? Collected: ? 03/15/2024 09:05 AM ? MD ? Ordering Location: ? [facility] ? Received: ?03/15/2024 09:30 AM ? Pathologist: ? Guillermo Brown MD ? Specimens: ?? A) - Bone Marrow Clot ? B) - Bone Marrow Core ? C) - Bone Marrow Aspirate ? D) - Blood Peripheral ? 03/18/2024 4:01 PM [facility] Final Diagnosis Bone marrow, aspirate, clot section, and core biopsy: - Acute myeloid leukemia. - See description. Peripheral blood smear: - Pancytopenia. - See description. 03/18/2024 4:01 PM [facility] Comment Immunohistochemistry performed show ~30% of marrow cellularity to represent blasts by CD34 and CD117. P53 is not expressed on blasts. Overall findings are those of acute myeloid leukemia. The background dysplasia in the myeloid and megakaryocytic lineage may indicate acute myeloid leukemia with myelodysplasia-related changes; however, correlation with cytogenetics and molecular studies is needed for a definitive subclassification. 03/18/2024 4:01 PM [facility] Peripheral Smear Description RBC: normocytic anemia. WBC: leukopenia with absolute neutropenia and lymphopenia. No circulating blasts seen. Platelets: decreased in number. 03/18/2024 4:01 PM [facility] Bone Marrow Aspirate Differential count (200 cells): 22% blasts, 23% maturing myeloid precursors, 29% erythroid progenitors, 10% monocytes (including immature forms), 0% eosinophils, 15% lymphocytes, 1% plasma cells. Specimen quality: adequate. Spicules: numerous. Myeloid Maturation: left-shifted with increased blasts and dysmyelopoiesis. Erythroid Maturation: normal. Megakaryocyte morphology: dysplastic. Storage iron (by special stain): not evaluable due to lack of spicules. Sideroblastic iron (by special stain): no ring sideroblasts. 03/18/2024 4:01 PM [facility] Bone Marrow Core Biopsy and Clot Section Description Specimen quality: small with 0.8 cm of evaluable marrow. Cellularity: 70-80% Myeloid maturation and localization: left-shifted with increased blasts. Erythroid maturation and localization: architectural disarray. Megakaryocyte number: normal. Megakaryocyte distribution: dysplastic. Lymphoid aggregates: absent. Bone trabeculae: normal. Plasma cells: normal. Clot section marrow particles: absent. Clot section morphology: peripheral blood only. 03/18/2024 4:01 PM [facility] Flow Cytometry Summary Bone marrow, flow cytometric immunophenotypic analysis ([id number]): - Paucicellular specimen with increased myeloblasts detected (42.4% of events) 03/18/2024 4:01 PM [facility] Clinical History New AML. 03/18/2024 4:01 PM [facility] Gross Description The requisition and specimen(s) are identified with the patient's name Russ Kern. Received in fresh, specimen A, clot is a 1.5 x 1.2 x 0.2 cm dark red blood clot. The specimen is placed in a biopsy bag and entirely submitted as A1. Received in formalin, specimen B, core , is a 1.2 x 0.2 x 0.2 cm purple bony core and associated hemorrhagic tissue. The specimen is decalcified in Rapid Osito immuno for 1 hour and entirely submitted in cassette B1. DF 03/18/2024 4:01 PM [facility] Pathologist Location at [facility] 03/18/2024 4:01 PM [facility] Disclaimer The performance characteristics of all immunohistochemical and indirect immunofluorescence stains (if any) cited in this report were determined by the Histopathology Laboratory of [facility]. Some of these tests were developed by our own laboratory and have not been cleared or approved by the US Food and Drug Administration. The FDA does not require this test to go through premarket FDA review. These tests are used for clinical purposes. They should not be regarded as investigational or for research. This laboratory is certified under the Clinical Laboratory Improvement Amendments (CLIA) as qualified to perform high complexity clinical laboratory testing. This case has been personally reviewed and interpreted by the attending (teaching) pathologist. 03/18/2024 4:01 PM [facility] Embedded Images 03/18/2024 4:01 PM [facility] Pathology/Cytology PERIPHERAL BLOOD / Unknown Collection / Unknown 03/15/2024 9:05 AM [facility] 03/15/2024 9:30 AM [facility] Miscellaneous samples (specimen) BONE MARROW SPECIMEN / Unknown 03/15/2024 9:05 AM [facility] 03/15/2024 9:30 AM [facility] Miscellaneous samples (specimen) SPECIMEN FROM BONE MARROW OBTAINED BY ASPIRATION / Unknown 03/15/2024 9:05 AM [facility] 03/15/2024 9:30 AM [facility] Miscellaneous samples (specimen) PERIPHERAL BLOOD / Unknown 03/15/2024 9:05 AM [facility] 03/15/2024 11:39 AM [facility] Rodo Perez MD LAB - PATHOLOG Y/CYTOLOGY ORDERABLES Performing Organization Address City/State/[facility] Co de Phone Number [facility] [address] [phone] * MYELOID MALIGNANCIES MUTATION PNL (03/15/2024 9:05 AM [facility]) Only the most recent of2 resultswithin the time period is included. Interpretation Myeloid Malignancy PNL See Note 03/28/2024 2:06 PM [facility] [employer] ([facility]) Comment: Myeloid Malignancies Mutation Panel NGS Submitted diagnosis or diagnosis under consideration for variant interpretation: Myelodysplastic syndrome, unspecified Note: Prior NGS testing performed on this patient (most recent [facility] accession [id number]) was reviewed in conjunction with the current case to compare molecular variants reported. The previously reported molecular variants DNMT3A, IDH1, and CUX1 are again detected in the current study. In addition, new molecular variants in STAG2, BCOR, JAK2, and CEBPA are now detected. TIER 1: Variants of Known Clinical Significance in Hematologic Malignancies 1. IDH1 c.394C>A, p.Kqy779Hmv ([id number]) VAF: 38.4% IDH1 encodes an enzyme that catalyzes the conversion of isocitrate to alpha-ketoglutarate in the citric acid cycle (23). Somatic mutations of IDH1 are found in 4-12% of patients with myelodysplastic syndrome (MDS).This mutation has been reported in hematologic malignancies (4). The prognostic significance of mutated IDH1 in MDS is uncertain (20) (27) (7) (14) (19) (32). 2. DNMT3A c.2206C>T, p.Ost965Wxw ([id number]) VAF: 42.2% DNMT3A encodes a DNA methyltransferase enzyme (33). Somatic mutations of DNMT3A are found in 3-20% of patients with MDS (24) (3) (25). This mutation has been reported in hematologic malignancies (4). MDS patients with DNMT3A mutations are more likely to progress to secondary acute myeloid leukemia (AML) (8) (28) (30). Mutated DNMT3A is also associated with shorter overall survival in MDS patients after hematopoietic stem cell transplantation (2). 3. DNMT3A c.2407A>G, p.Fxh060Brt ([id number]) VAF: 38.8% This mutation has also been reported in hematologic malignancies (4). 4. JAK2 c.1849G>T, p.Cyy618Ced ([id number]) VAF: 14.4% JAK2 encodes a non-receptor protein tyrosine kinase that regulates STAT linux architect factors in response to cytokine receptor signaling (13). JAK2 mutations have been reported in 3-6% of patients with MDS (6) (15) (31). This JAK2 mutation (p.Jeb496Sbn) has also been reported in approximately 10-25% of patients with myelodysplastic/myeloproliferative neoplasms (MDS/MPN) (31) (21). This particular JAK2 mutation occurs in the pseudokinase (JH2) domain and leads to activation of the NOLAN-STAT pathway signaling. The prognostic significance of JAK2 mutations in MDS is unclear (6). 5. STAG2 c.1840C>T, p.Pfw135* ([id number]) VAF: 31.7% STAG2 encodes a subunit of the cohesin complex which is composed of four core subunits: SMC1A, SMC3, RAD21, and STAG2. Collectively, acquired cohesin complex mutations are found in 8-13% of patients with MDS. In myeloid malignancies, STAG2 mutations are mostly nonsense, frameshift, and splice-site mutations, while STAG2 missense variants are less common (29). This mutation is predicted to alter the normal function of STAG2. Collectively, cohesin mutations are significantly associated with mutations in TERESA, RUNX1, BCOR, or ASXL1 (29). Cohesin mutations have been associated with poor overall survival in MDS patients (29). In one study of a cohort of patients with myeloid malignancies, patients with STAG2 or RAD21 mutations were more likely to respond to treatment with hypomethylating agents compared to patients with unmutated cohesin genes (29). 6. BCOR c.3649C>T, p.Uok0308* (NM_[id number]) VAF: 9.6% BCOR encodes a transcriptional corepressor that interacts with BCL-6 and histone deacetylases (HDACs) (5) (12). Mutations in BCOR are seen in 4% of patients with MDS (5) (11). BCOR mutations in MDS are often frameshift and nonsense mutations that result in snat-zp-vaagxxaj (5) (11). This mutation is predicted to alter the normal function of BCOR. BCOR mutations are associated with a higher incidence of AML transformation in MDS patients and shorter overall survival in MDS patients (5) (11) (16). 7. BCOR c.635_638del, p.Zid296Tgjfh*3 (NM_[id number]) VAF: 6.2% This mutation is also predicted to alter the normal function of BCOR. TIER 2: Variants of Unknown Clinical Significance in Hematologic Malignancies 1. CEBPA c.1074_*9del, p.*359Cysext*58 (NM_[id number]) VAF: 4.7% CEBPA encodes a protein that is a member of the basic region leucine zipper family of linux architect factors (18). Somatic mutations of CEBPA are found in 2-4% of patients with myelodysplastic syndrome (MDS) (9) (19). Mutations in CEBPA are frequently N-terminal truncating mutations (17) (22) or missense or in-frame mutations in the basic leucine zipper (bZIP) domain (26). This deletion occurs outside the bZIP domain at the C-terminus and is predicted to extend the protein. The functional consequences are unknown. The clinical significance, if any, is uncertain. 2. CUX1 c.3085G>A, p.Hql5649Ler (NM_[id number]) VAF: 44.8% This variant has been rarely reported in hematologic malignancies (1) (10), to the best of our knowledge. References 1: Lynnette P, ??Emmanuelle B, ??Zhanna CLARK et al, Assessment of Minimal Residual Disease by Next Generation Sequencing in Peripheral Blood as a Complementary Tool for Personalized Transplant Monitoring in Myeloid Neoplasms. J Clin Med 2020. PMID:[id number] 2: Virginie R, ??Juan HERNANDEZ, ??Ulises Kim et al, Somatic mutations predict poor outcome in patients with myelodysplastic syndrome after hematopoietic stem-cell transplantation. J Clin Oncol 2014. PMID:[id number] 3: cBioPortal: http://www.cbioportal.org/ 4: COSMIC: https://cancer.vipin.ac.uk/cosmic 5: Braulio F, ??Yu V, ??Nagata Y et al, BCOR and BCORL1 mutations in myelodysplastic syndromes and related disorders. Blood 2013. PMID:[id number] 6: Bill M, ??Jennifer C, ??Víctor L et al, JAK2 Mutations Are Rare and Diverse in Myelodysplastic Syndromes: Case Series and Review of the Literature. Hematol Rep 2022. PMID:[id number] 7: Jahaira GRAY, ??Kamla E, ??Mary F et al, IDH1 and IDH2 mutations in myelodysplastic syndromes and role in disease progression. Leukemia 2016. PMID:12567567 8: Asiya I, ??Day Rubin, ??Lenin MURPHY et al, Frequency, onset and clinical impact of somatic DNMT3A mutations in therapy-related and secondary acute myeloid leukemia. Haematologica 2012. PMID:[id number] 9: Nuha O, ??Idania Amador, ??Luanne Payne et al, CEBPA polymorphisms and mutations in patients with acute myeloid leukemia, myelodysplastic syndrome, multiple myeloma and non-Hodgkin's lymphoma. Blood Cells Mol Dis 2008. PMID:[id number] 10: Cassandra Kim, ??Cornell Payne, ??Alexis Valdivia et al, DNA methylation epitypes highlight underlying developmental and disease pathways in acute myeloid leukemia. Genome Res 2020. PMID:[id number] 11: Ivan V, ??Jenna Estrada, ??Alondra DEMPSEY et al, Whole-exome sequencing identifies somatic mutations of BCOR in acute myeloid leukemia with normal karyotype. Blood 2011. PMID:[id number] 12: Lin RUEDA, ??Yashira W, ??Darcie Estrada et al, BCoR, a novel corepressor involved in BCL-6 repression. Genes Dev 2000. PMID:[id number] 13: Fabian SS, ??Jen SJ, ??Amandeep LR et al, Nolan/STAT pathways in cytokine signaling and myeloproliferative disorders: approaches for targeted therapies. Genes Cancer 2010. PMID:[id number] 14: Jose J O, ??Charity V, ??Grayson Stroud et al, Mutations of IDH1 and IDH2 genes in early and accelerated phases of myelodysplastic syndromes and MDS/myeloproliferative neoplasms. Leukemia 2010. PMID:[id number] 15: Malaika M, ??Catherine C, ??Ahsan Talavera et al, Molecular analysis of myelodysplastic syndrome with isolated deletion of the long arm of chromosome 5 reveals a specific spectrum of molecular mutations with prognostic impact: a study on 123 patients and 27 genes. Haematologica 2017. PMID:[id number] 16: Gregoria BAR, ??Meliton T, ??Valerie Payne et al, Spectrum and prognostic relevance of school bus driver/mechanic gene mutations in acute myeloid leukemia. Blood 2016. PMID:24750582 17: Nicol T, ??Mel MEANS, ??Milton P et al, Dominant-negative mutations of CEBPA, encoding CCAAT/enhancer binding protein-alpha (C/EBPalpha), in acute myeloid leukemia. Yusra Emely 2001. PMID:[id number] 18: Nicol T, Mel BU, Complexity of CEBPA dysregulation in human acute myeloid leukemia. Clin Cancer Res 2009. PMID:[id number] 19: Papvaldommaelleuijarred E, ??Scarung M, ??Hugh Stroud et al, Clinical and biological implications of school bus driver/mechanic mutations in myelodysplastic syndromes. Blood 2013. PMID:[id number] 20: Eileen MURPHY, ??Rajinder CHRISTY, ??Juju OTERO et al, Differential prognostic effect of IDH1 versus IDH2 mutations in myelodysplastic syndromes: a [facility] study of 277 patients. Leukemia 2012. PMID:[id number] 21: Eileen MURPHY, George MCDOWELL, Genomics of myelodysplastic syndrome/myeloproliferative neoplasm overlap syndromes. Hematology Am Soc Hematol Educ Program 2020. PMID:[id number] 22: Preudhomme C, ??Sagot C, ??Heather Flower et al, Favorable prognostic significance of CEBPA mutations in patients with de elinor acute myeloid leukemia: a study from the Acute Leukemia [place] [employer] (JOSE). Blood 2002. PMID:[id number] 23: Bulmaro CamargoJ, Josse H, Isocitrate dehydrogenase 1 and 2 mutations in cancer: alterations at a crossroads of cellular metabolism. J Natl Cancer Inst 2010. PMID:[id number] 24: Jose A, ??Ivan V, ??Yudi U et al, [place] analysis of DNMT3A mutations in hematological malignancies. Leukemia 2013. PMID:[id number] 25: Kim , ??Lisa-Pattyhajamison O, ??Arnulfo REINOSO et al, The role of mutations in epigenetic regulators in myeloid malignancies. Yusra Rev Cancer 2012. PMID:[id number] 26: Taube F, ??Hubert ISSA, ??Efrem Payne et al, CEBPA mutations in 4708 patients with acute myeloid leukemia: differential impact of bZIP and TAD mutations on outcome. Blood 2021. PMID:[id number] 27: Thol F, ??Roverto EM, ??Sam Lynn et al, IDH1 mutations in patients with myelodysplastic syndromes are associated with an unfavorable prognosis. Haematologica 2010. PMID:[id number] 28: Thol F, ??Lisa Rubin, ??Bro Valdivia et al, Rare occurrence of DNMT3A mutations in myelodysplastic syndromes. Haematologica 2011. PMID:[id number] 29: Josey S, ??Liam SAAB, ??Joan Weller et al, Genetic alterations of the cohesin complex genes in myeloid malignancies. Blood 2014. PMID:[id number] 30: Barrett MERRITT, ??Tono L, ??Jossue Amador et al, Recurrent DNMT3A mutations in patients with myelodysplastic syndromes. Leukemia 2011. PMID:[id number] 31: Lawrence Camargo, Juan Diego Kim, Comparison and Implications of Mutational Profiles of Myelodysplastic Syndromes, Myeloproliferative Neoplasms, and Myelodysplastic/Myeloproliferative Neoplasms: A Lorenzo-Analysis. Front Oncol 2020. PMID:[id number] 32: Cornell Flower, ??Cornell F, ??Yuval Flower et al, IDH1 Mutation Is an Independent Inferior Prognostic Indicator for Patients with Myelodysplastic Syndromes. Acta Haematol 2017. PMID:[id number] 33: Ochoa L, Gabriella R, Hieu ALBERTS, DNMT3A in haematological malignancies. Yusra Rev Cancer 2015. PMID:[id number] This result has been reviewed and approved by Jannette Dutta M.D. Low coverage regions: Listed below are regions where the average sequencing depth (number of times a particular nucleotide is sequenced) in at least 20% of the onefle-yh-gkbawmme is less than our stringent cutoff of 300. Sensitivity for detection of low allelic frequency variants may be reduced in areas with reduced depth of coverage. None BACKGROUND INFORMATION: Myeloid Malignancies Mutation ?Panel by Next Generation ?Sequencing CHARACTERISTICS: Myeloid malignancies are clonal disorders of hematopoietic stem and progenitor cells that include myelodysplastic syndromes (MDSs), myeloproliferative neoplasms (MPNs), myelodysplastic/myeloproliferative neoplasms (MDS/MPNs), and acute myeloid leukemia (AML). Recent studies have identified recurrently mutated genes with diagnostic and/or prognostic impact in myeloid malignancies. The presence of certain mutations may inform clinical management. This multigene panel by massively parallel sequencing (next generation sequencing) is a more cost-effective approach when compared to the cost of multiple single gene tests. This test can be used to complement the morphologic and cytogenetic workup of myeloid malignancies. GENES TESTED: ANKRD26; ASXL1; ASXL2; BCOR; BCORL1; BRAF; CALR; CBL; CBLB; CEBPA; CSF3R; CUX1*; DDX41; DNMT1*; DNMT3A; ELANE; ETNK1; ETV6; EZH2; FBXW7; FLT3; GATA1; GATA2; GNAS; HNRNPK; IDH1; IDH2; IL7R; JAK1; JAK2; JAK3; KDM6A*; KIT; KMT2A; KRAS; LUC7L2; MPL; NOTCH1; NPM1*; NRAS; NSD1; PHF6; PIGA; PPM1D; FOJU06B; PRPF8; PTPN11; RAD21; RUNX1; SAMD9; SAMD9L; SETBP1; SF3B1; SH2B3; SMC1A; SMC3; SRSF2; STAG2; STAT3; STAT5B*; SUZ12*; TET2; TP53; U2AF1; U2AF2; UBA1; WT1; ZRSR2. *One or more exons of the preferred transcript were not covered by sequencing for the indicated gene; see limitations section below. METHODOLOGY: Genomic DNA was isolated from peripheral blood or bone marrow and then enriched for the targeted exonic regions of the tested genes. The variant status of the targeted genes was determined by massively parallel sequencing. The hg19 (GRCh37) human genome assembly was used as a reference for identifying genetic variants. Clinically significant variants and variants of uncertain significance called in the preferred transcript are reported. LIMITATIONS: Variants outside the targeted regions or below the limit of detection are not identified. Variants in regions that are not included in the preferred transcript for the targeted genes are not detected. In some cases, variants may not be identified due to technical limitations in the presence of pseudogenes or in repetitive or homologous regions. It is also possible some insertion/deletion variants may not be identified. Benign or likely benign variants in the preferred transcript are not reported. The following regions were not sequenced due to technical limitations of the assay: CUX1 (NM_181552) exon 24 DNMT1 ([id number]) exon 5 KDM6A (NM_001291415) exon 13 NPM1 (NM_002520) exon 1 STAT5B (NM_012448) exons 6-9 SUZ12 (NM_015355) exons 1-9 LIMIT OF DETECTION (LOD): 5 percent variant allele fraction (VAF) for single nucleotide variants (SNV) and small variants less than 24 base pairs (bp). Variants greater than 24bp may be detected at LOD, but the analytical sensitivity may be reduced. ANALYTICAL SENSITIVITY: The positive percent agreement (PPA) estimate for the respective variant classes (with 95 percent credibility region) are listed below. Genes included on this test are a subset of a larger methods-based validation from which the PPA values are derived. Single nucleotide variants (SNVs): 96.9 percent (95.1-98.1 percent) Insertions/duplications (1-24bp): 98.1 percent (95.5-99.3 percent) Insertions/duplications (greater than 24bp): greater than 99 percent (92.9-100.0 percent) Deletions (1-24bp): 96.7 percent (92.8-98.7 percent) Deletions (greater than 24bp): 90 percent (79.5-96.1 percent) Multinucleotide variants (MNVs): 97 percent (93.0-99.0 percent) FLT3 ITDs: Greater than 99 percent (97.1-100.0 percent) CLINICAL DISCLAIMER: Results of this test must always be interpreted within the context of clinical findings and other relevant data and should not be used alone for a diagnosis of malignancy. This test is not intended to detect minimal residual disease. This test was developed and its performance characteristics determined by [facility]. It has not been cleared or approved by the U.S. Food and Drug Administration. This test was performed in a CLIA-certified laboratory and is intended for clinical purposes. Myeloid Malignancy Dx Mds Unspec 03/28/2024 2:06 PM [facility] [employer] ([facility]) Myeloid Malignancy Panel Specimen Bone Marrow 03/28/2024 2:06 PM [facility] [employer] ([facility]) EER Myeloid Malignancy See Note 03/28/2024 2:06 PM [facility]) Comment: Authorized individuals can access the [employer] Enhanced Report using the following link: [email or web address] Performed By: [facility] [address] [place] [address] Mixing Machine Tender Cork Gasket: Uche Morley MD, PhD CLIA Number: [id number] Other BONE MARROW SPECIMEN / Unknown Collection / Unknown 03/15/2024 9:05 AM [facility] 03/15/2024 9:30 AM [facility] Rodo Perez MD LAB - PATHOLOG Y/CYTOLOGY ORDERABLES Performing Organization Address [facility] Co de Phone Number [facility] [email or web address] [facility]) [address] * LAB MISC TEST (NOT BLOOD) (03/15/2024 9:05 AM [facility]) Only the most recent of3 resultswithin the time period is included. Test Name Tp53 03/21/2024 12:06 PM [facility] REF LAB NON INTERF Test Result See Scanned Report 03/21/2024 12:06 PM [facility] REF LAB NON INTERF Comment Ref Lab 03/21/2024 12:06 PM [facility] REF LAB NON INTERF Other BONE MARROW SPECIMEN / Unknown Collection / Unknown 03/15/2024 9:05 AM [facility] 03/15/2024 9:30 AM [facility] Rodo Perez MD LAB - BODY FLU ID ORDERABLES Performing Organization Address [facility] Co de Phone Number [facility] REF LAB NON INTERF [address] [place] [address], [facility] [phone] * FISH PML/DANTE PANEL (03/15/2024 9:05 AM [facility]) Only the most recent of2 resultswithin the time period is included. EER PML/DANTE Translocation by Fish See Note 03/17/2024 4:41 PM [facility] [email or web address] ([facility]) Comment: Authorized individuals can access the [facility] Enhanced Report using the following link: [email or web address] Performed By: [facility] [address] [place] [address] Mixing Machine Tender Cork Gasket: Uche Morley MD, PhD CLIA Number: [id number] PML/DANTE Translocation by FISH See Note 03/17/2024 4:41 PM [facility] [employer] ([facility]) Comment: Test Performed: PML-DANTE Translocation by FISH (FISH PML) Specimen Type: Bone Marrow Indication for Testing: MDS RESULT Normal FISH Result t(15;17) PML::DANTE ??Fusion: ??not detected INTERPRETATION There was no evidence of PML::DANTE fusion due to translocation (15;17)(q24;q21). This analysis was performed with the PML/DANTE probes ([employer]). A total of 200 cells were scored. Cytogenomic Nomenclature (ISCN): nuc nereyda(PML,DANTE)x2[200' This result has been reviewed and approved by Nabila Gonzalez, PhD, [facility] A portion of this analysis was performed at the following location(s): [facility] Site [place]#2 INTERPRETIVE INFORMATION: PML/DANTE Translocation by FISH This test was developed and its performance characteristics determined by [facility]. It has not been cleared or approved by the US Food and Drug Administration. This test was performed in a CLIA certified laboratory and is intended for clinical purposes. Other BONE MARROW SPECIMEN / Unknown Collection / Unknown 03/15/2024 9:05 AM [facility] 03/15/2024 9:30 AM [facility] Rodo Perez MD LAB - PATHOLOG Y/CYTOLOGY ORDERABLES [employer] ([facility]) [address] * CHROMOSOME ANALYSIS BONE MARROW PANEL (03/15/2024 9:05 AM [facility]) Pathologist [facility] Chromosome Analysis Bone Marrow See Note Normal 03/22/2024 11:01 AM [facility] [employer] ([facility]) Comment: Test Performed: Chromosome Analysis Specimen Type: Bone Marrow Indication for Testing: Myelodysplastic syndrome, unspecified Number of cells counted: 20 Number of cells analyzed: 20 Number of cells karyotyped: 18 ISCN band level: 400 Banding method: G-Banding RESULT Normal Karyotype (Male) 46,XY[20' INTERPRETATION This analysis showed a normal result. There were no abnormal clones detected within the limits of the technology utilized in this study. NOTE: Concurrent FISH PML performed under [facility] accession [id number] was NORMAL. FISHAML and FISH MDS P are PENDING and will be reported under [facility] accessions [id number] and [id number]. This result has been reviewed and approved by Randall Yun, PhD, [facility] A portion of this analysis was performed at the following location(s): [employer] [facility] Site -[place]#2 [facility] Site -[place]#3 [facility]-[place]4 [facility] INTERPRETIVE INFORMATION: Chromosome Analysis, Bone Marrow This test was developed and its performance characteristics determined by [facility]. It has not been cleared or approved by the US Food and Drug Administration. This test was performed in a CLIA certified laboratory and is intended for clinical purposes. EER Chromosome Analysis Bone Marrow See Note 03/22/2024 11:01 AM [facility] [employer] ([facility]) Comment: Authorized individuals can access the [facility] Enhanced Report using the following link: [email or web address] Performed By: [facility] [address] [place] [address] Mixing Machine Tender Cork Gasket: Uche Morley MD, PhD CLIA Number: [id number] Bone marrow BONE MARROW SPECIMEN / Unknown 03/15/2024 9:05 AM [facility] 03/15/2024 9:30 AM [facility] Rodo Perez MD LAB - PATHOLOG Y/CYTOLOGY ORDERABLES [employer] ([facility]) [address] [place] [address], [facility] * FLOW CYTOMETRY BLOOD PROFILE (03/14/2024 10:32 AM [facility]) Case Report Flow Cytometry ?Case: [id number] ? Authorizing Provider: ??Ghanshyam Dewey PA-C ? Collected: ? 03/14/2024 10:32 AM ? Ordering Location: ? [facility] 7N ACUTE ? Received: ?03/14/2024 01:49 PM ? Pathologist: ? Angeles Rosado MD ? Specimen: ?Blood ? 03/14/2024 4:58 PM [facility] PATHOLOGY LAB Final Diagnosis Peripheral blood, flow cytometric immunophenotypic analysis: - 1.2% myeloblasts detected - No evidence of a monoclonal B-cell population - See interpretation 03/14/2024 4:58 PM [facility] PATHOLOGY LAB Flow Cytometry Results Differential Result Comment WBC Count /uL 1,200 Total Viability % 100.0 Lymphocytes % 80 Dim CD45 Region % 4 Monocytes % 4 Granulocytes % 13 03/14/2024 4:58 PM [facility] PATHOLOGY LAB Flow Cytometry Interpretation Viability: 100% B-cells: polytypic, kappa:lambda ratio 1.1:1. Blasts: 1.2% of events are myeloblasts. Monocytes are mature. A peripheral blood smear prepared from the flow cytometry specimen has been reviewed for automotive quality manager purposes. 03/14/2024 4:58 PM [facility] PATHOLOGY LAB Reason for test MDS (myelodysplastic syndrome) (HCC) 238.75 03/14/2024 4:58 PM [facility] PATHOLOGY LAB Client Specimen ID # [id number] 03/14/2024 4:58 PM [facility] PATHOLOGY LAB Pathologist Location at [facility] 03/14/2024 4:58 PM [facility] PATHOLOGY LAB Disclaimer Test performed at [facility], [address] [place] [address], [address]. *The established laboratory minimum viability is 70%. Values below the minimum may result in the failure to find an abnormal population of cells. This test was developed and its performance characteristics determined by the Flow Cytometry Laboratory. It has not been cleared by the [place] Food and Drug Administration (FDA). The FDA has determined that such clearance or approval is not necessary. This test is used for clinical purposes. It should not be regarded as investigational or for research. This laboratory is regulated under the Clinical Laboratory Improvement Amendments of 1998 (CLIA) as a qualified to perform high complexity clinical testing. 03/14/2024 4:58 PM [facility] PATHOLOGY LAB Embedded Images 4:58 PM [facility] PATHOLOGY LAB Number of markers 19 were performed. A-2 Flow CD10 A-3 Flow CD13 A-5 Flow CD20 A-11 Flow CD2 A-13 Flow CD14 A-16 Flow CD117 A-17 Flow CD11b A-18 Flow CD11c A-1 Flow CD5 A-4 Flow CD19 A-6 Flow CD33 A-7 Flow CD34 A-8 Flow CD45 A-12 Flow CD7 A-14 Flow CD56 A-15 Flow CD64 A-9 [place]+CD19+ A-10 Lambda+CD19+ A-19 Flow HLA-DR 03/14/2024 4:58 PM [facility] PATHOLOGY LAB Blood BLOOD SPECIMEN / Unknown Lab Venipuncture / Unknown 03/14/2024 10:32 AM [facility] 03/14/2024 1:49 PM [facility] Ghanshyam Dewey PA-C LAB - PATHOLOGY/CYTO LOGY ORDERABLES Performing Organization Address City/State/[facility] Co de Phone Number [facility] PATHOLOGY LAB [address] [phone] * CYTOMEGALOVIRUS (CMV) QUANTITATIVE PLASMA (03/13/2024 11:26 PM [facility]) CMV Quant by PCR, Interp Not detected Not detected 03/14/2024 9:00 AM [facility] Blood BLOOD SPECIMEN / Unknown Venipuncture / Unknown 03/13/2024 11:26 PM [facility] 03/13/2024 11:37 PM [facility] Narrative [facility] - 03/14/2024 9:00 AM [facility] The Cytomegalovirus (CMV) DNA analysis utilized a plasma sample, real-time PCR (qPCR), and is reported as Not Detected, Detected (<35 IU/mL), 35 - 10,000,000 IU/mL, or >10,000,000 IU/mL The analytic sensitivity (LOD) of the assay is 35 IU/mL. Linear range of the assay is 35 - 10,000,000 IU/ml. ? The detection/quantitation of CMV DNA in plasma is based on the isolation of CMV DNA followed by real-time PCR in the presence of an unrelated DNA internal control. The internal control ensures that DNA is isolated, and that no general significant inhibitors of the qPCR process are present. Absolute CMV values or breakpoints for symptomatic disease have not been established and appear to be different between patient populations and laboratories. Therefore, it is important to monitor patients and to follow increases and/or decreases in the level of CMV in multiple blood specimens.. The analysis was performed using a U.S. FDA approved test methodology Bruce sharon CMV. Ted Soler MD LAB - CHEMISTRY OR DERABLES Performing Organization Address City/[facility] Co de Phone Number [facility] [address] [place] [address], [facility] [phone] * QUINN-TOVAR VIRUS QUANT BLOOD STL (03/13/2024 11:26 PM [facility]) EBV Quant by PCR, Interp Not detected Not detected 03/14/2024 8:56 AM [facility] Specimen Type Plasma 03/14/2024 8:56 AM [facility] Blood BLOOD SPECIMEN / Unknown Venipuncture / Unknown 03/13/2024 11:26 PM [facility] 03/13/2024 11:37 PM [facility] Narrative [facility] - 03/14/2024 8:56 AM [facility] The Quinn-Tovar viral (EBV) DNA analysis utilized a plasma sample, real-time PCR (qPCR), and is reported as Not Detected, Detected (<35 IU/mL), Quantity (IU/mL) or >100,000,000 IU/mL. The analytic sensitivity (LOD) of the assay is 35 IU/mL. The linear range is from 35 IU/mL to 100,000,000 IU/mL.??Values less than 35 IU/mL are reported as Detected (<35 IU/mL). Values greater than 100,000,000 IU/mL are reported as >100,000,000 IU/mL. The detection/quantitation of EBV DNA in plasma is based on the isolation of EBV DNA followed by real-time PCR in the presence of an unrelated DNA internal control. The internal control ensures that DNA is isolated, and that no general significant inhibitors of the qPCR process are present. The analysis was performed using a U.S. FDA approved test methodology Bruce sharon EBV. Ted Soler MD LAB - CHEMISTRY OR DERABLES [facility] [address] [place] [address], [facility] [phone] * D-DIMER (03/13/2024 11:26 PM [facility]) D-Dimer Quantitative <0.27 <=0.50 mcg/mL FEU 03/14/2024 12:00 AM [facility] Comment: In the absence of clinical symptoms, a value less than or equal to 0.5 mcg/mL FEU significantly decreases the probability of PE/DVT (negative predictive value >95%). 1 mcg/mL FEU = 1 Fibrinogen Equivalent Unit (approximates 0.5 mcg/ml of D- Dimer). ?ISTH DIAGNOSTIC SCORING SYSTEM FOR DIC ?Score ?0 ? 1 ? 2 ?3 ?? Platelet Count(x10^3/uL) ?> 100 ?? < 100 ?? < 50 ?N/A PT Prolongation above ? upper limit of normal ?0-3 ? 3-6 ? > 6 ?N/A range (seconds) ? Fibrinogen (mg/dL) ?> 100 ?? < 100 ?N/A ?N/A D-Dimer (mcg/mL FEU) ? < 0.50 ?N/A ? 0.50-5.0 ??> 5 Calculate Cumulative Score: > or = 5 :compatible with overt DIC ? < 5 :suggestive for non-overt DIC N/A = Non applicable Reference: Br. J. Haematol. 145:24-33,2009. Blood BLOOD SPECIMEN / Unknown Venipuncture / Unknown 03/13/2024 11:26 PM [facility] 03/13/2024 11:37 PM [facility] Ted Soler MD LAB - COAGULATION ORDERABLES Performing Organization Address [facility]/State/ZIP Co de Phone Number [facility] [place] [employer] [facility] [address] [place] [address], [facility] [phone] * FIBRINOGEN ACTIVITY (03/13/2024 11:26 PM [facility]) Fibrinogen Clauss 362 200 - 400 mg/dL 03/13/2024 11:59 PM [facility] Blood BLOOD SPECIMEN / Unknown Venipuncture / Unknown 03/13/2024 11:26 PM [facility] 03/13/2024 11:37 PM [facility] Ted Soler MD LAB - COAGULATION ORDERABLES [facility] [address] [place] [address], [facility] [phone] * FISH AML+MDS PANEL BLOOD OR BONE MARROW (03/04/2024 4:13 PM [facility]) Pathologist [facility] FISH AML with MDS, Therapy-Rltd AML See Note Normal 03/19/2024 4:32 PM [facility] [employer] ([facility]) Comment: Test Performed: Acute Myelogenous Leukemia (AML) with Myelodysplastic Syndrome (MDS) or Therapy-Related AML, by FISH (F TAMJarred MDS) Specimen Type: Peripheral Blood Indication for Testing: ??D46.9 Myelodysplastic syndrome RESULT Normal FISH Result Deletion 5q: ??not detected Monosomy 7: ??not detected Deletion 7q: ??not detected 11q23 (KMT2A) Rearrangement: ??not detected INTERPRETATION There was no evidence of deletion 5q31, monosomy 7, deletion 7q31, or 11q23 KMT2A (MLL) rearrangement. This analysis was performed with the Therapy-Related AML panel probes D5S23/EGR1, D7Z1/U7V814, and MLL (KMT2A) (Xueersi). A total of 200 cells were scored for each probe. Cytogenomic Nomenclature (ISCN): nuc nereyda(D5S23,EGR1,D7Z1,T5N875,KMT2A)x2[200' This result has been reviewed and approved by Charles Pablo MD, [facility] INTERPRETIVE INFORMATION: AML with MDS, Therapy-Related AML, FISH This test was developed and its performance characteristics determined by [facility]. It has not been cleared or approved by the US Food and Drug Administration. This test was performed in a CLIA certified laboratory and is intended for clinical purposes. EER AML with MDS, Therapy-Rltd AML FISH See Note 03/19/2024 4:32 PM [facility] [employer] ([facility]) Comment: Authorized individuals can access the [employer] Enhanced Report using the following link: [email or web address] Performed By: [facility] [address] [id number] Mixing Machine Tender Cork Gasket: Uche Morley MD, PhD CLIA Number: [id number] Other BLOOD SPECIMEN / Unknown Collection / Unknown 03/04/2024 4:13 PM [facility] 03/04/2024 4:23 PM [facility] Cindy Garcia MD LAB - PATHOLOGY/CYTO LOGY ORDERABLES [employer] [facility]) [address] [id number], [facility] * CHROMOSOME ANALYSIS LEUKEMIA BLD (03/04/2024 4:13 PM [facility]) Chromosome Analysis Leukemic Blood See Note Normal 03/23/2024 12:39 PM [facility] [employer] ([facility]) Comment: Test Performed: Chromosome Analysis Specimen Type: Peripheral Blood Indication for Testing: D46.9 Myelodysplastic syndrome, unspecified Number of cells counted: 3 Number of cells analyzed: 3 Number of cells karyotyped: 3 ISCN band level: 375 Banding method: G-Banding RESULT Normal Karyotype (Male) 46,XY[3' *Suboptimal Mitotic Index INTERPRETATION *Only 3 metaphase cells were available for analysis. This suboptimal mitotic yield may have prohibited the detection of a clonal population. This analysis showed a normal result. There were no abnormal clones detected within the limits of the technology utilized in this study. NOTE: Concurrent FISH AML/PML and TAML MDS performed under [facility] accessions [id number] and [id number] were NORMAL. This result has been reviewed and approved by Margaret Roberson, PhD, [facility] INTERPRETIVE INFORMATION: Chromosome Analysis, ?Leukemic Blood This test was developed and its performance characteristics determined by [facility]. It has not been cleared or approved by the US Food and Drug Administration. This test was performed in a CLIA certified laboratory and is intended for clinical purposes. EER Chromosome Analysis Leukemic See Note 03/23/2024 12:39 PM [facility] [employer] ([facility]) Comment: Authorized individuals can access the [employer] Enhanced Report using the following link: [email or web address] Performed By: [facility] [address] [place] [address] Mixing Machine Tender Cork Gasket: Uche Morley MD, PhD CLIA Number: [id number] Blood BLOOD SPECIMEN / Unknown Lab Venipuncture / Unknown 03/04/2024 4:13 PM [facility] 03/22/2024 5:28 PM [facility] Cindy Garcia MD LAB - PATHOLOGY/CYTO LOGY ORDERABLES [employer] ([facility]) [address] [place] [address], [facility] * HIV-1 HIV-2 ANTIBODY + HIV P24 AG PANEL (New on 08/24) (03/04/2024 4:13 PM [facility]) Pathologist [facility] HIV Antigen/Antibod y 1 & 2 Non-reacti ve Non-react carlos 03/04/2024 5:12 PM [facility] Comment:No Laboratory eviden ce of HIV infection. Blood BLOOD SPECIMEN / Unknown Lab Venipuncture / Unknown 03/04/2024 4:13 PM [facility] 03/04/2024 4:23 PM [facility] Cindy Garcia MD LAB - CHEMISTRY CHELI MONREAL [facility] [address] [place] [address], [facility] [phone] * BCR-ABL1 CML+AML PCR QUANT PNL (03/04/2024 4:13 PM [facility]) Pathologist [facility] Interpretation TNP 03/13/2024 5:08 PM [facility] ([facility]) Comment: Unable to obtain results. Repeated efforts to analyze this specimen have been unsuccessful. LOW CONTROL GENE COPY NUMBER INDICATED SPECIMEN DEGRADATION. Director Review Comment 5:08 PM [facility] ([facility]) Comment: Dawood Sarabia, PhD, [facility] ?Director, Molecular Oncology ?[facility] ?[place] [address] ? Background Comment 03/13/2024 5:08 PM [facility] ([facility]) Comment: This assay can detect three different types of BCR-ABL1 fusion transcripts associated with CML, ALL, and AML: e13a2 (previously b2a2) and e14a2 (previously b3a2) (major breakpoint, p210), as well as e1a2 (minor breakpoint, p190). The e13a2 and e14a2 transcript values are titrated to the current International Scale (IS). The standardized baseline is 100% BCR-ABL1 (IS) and major molecular response (MMR) is equivalent to 0.1% BCR-ABL1 (IS) corresponding to a 3-log reduction. Results should be correlated with appropriate clinical and laboratory information as indicated. Methodology Comment 03/13/2024 5:08 PM [facility] ([facility]) Comment: Total RNA is isolated from the sample and subject to a real-time, reverse transcriptase polymerase chain reaction (RT-PCR). The PCR primers and probes are specific for BCR-ABL1 e13a2, e14a2 and e1a2 fusion transcripts. The ABL1 transcript is amplified as the control for cDNA quantity and quality. Serial dilutions of a validated positive control RNA with known t(9;22) BCR-ABL1 are used as reference for quantification of BCR-ABL1 relative to ABL1. The numeric BCR-ABL1 level is reported as % BCR-ABL1/ABL1 and the detection sensitivity is 4.5 log below the standard baseline (<0.0032%). This test was developed and its performance characteristics determined by [facility]. It has not been cleared or approved by the Food and Drug Administration. Blood BLOOD SPECIMEN / Unknown Lab Venipuncture / Unknown 03/04/2024 4:13 PM [facility] 03/04/2024 4:24 PM [facility] Narrative [facility] ([facility]) - 03/13/2024 5:08 PM [facility] Performed at: ??01 - [facility] [address] [place], [place] ??[id number] Podiatry Teacher: Cinthya Roper [facility], Phone: ??[phone] Performed at: ??02 - [facility] [address] [place], [place] ??[id number] Podiatry Teacher: Cinthya Roper [facility], Phone: ??[phone] Cindy Garcia MD LAB - CHEMISTRY CHELI MONREAL [facility] ([facility]) [address] [place] [address], [facility] * TSH REFLEX FREE T4 (03/04/2024 4:13 PM [facility]) [facility] TSH 0.961 0.350 - 4.940 uIU/mL 03/04/2024 5:29 PM [facility] Blood BLOOD SPECIMEN / Unknown Lab Venipuncture / Unknown 03/04/2024 4:13 PM [facility] 03/04/2024 4:27 PM [facility] Cindy Garcia MD LAB - CHEMISTRY CHELI MONREAL Performing Organization Address City/[facility]/ZIP Co de Phone Number [facility] [address] [place] [address], [place] [phone] * RHEUMATOID FACTOR BLOOD QUANTITATIVE (03/04/2024 4:13 PM [facility]) [facility] Rheumatoid Factor <15 <30 IU/mL 03/04/2024 4:57 PM [facility] Rheumatoid Factor Screen Negative Negative 03/04/2024 4:57 PM [facility] Blood BLOOD SPECIMEN / Unknown Lab Venipuncture / Unknown 03/04/2024 4:13 PM [facility] 03/04/2024 4:23 PM [facility] Cindy Garcia MD LAB - CHEMISTRY CHELI MONREAL Performing Organization Address [facility]/ZIP Co de Phone Number [facility] [address] [place] [address], [place] [phone] * CYTOMEGALOVIRUS ANTIBODY IGG BLOOD (03/04/2024 4:13 PM [facility]) [facility] Cytomegalovirus Antibody IgG <0.20 <=0.70 U/mL 03/05/2024 9:27 PM [facility] ([facility]) Comment: INTERPRETIVE INFORMATION: Cytomegalovirus Antibody, IgG ??0.59 U/mL or less......... Not Detected ??0.6 - 0.69 U/mL........... Indeterminate-Repeat testing in ? 10-14 days may be helpful. ??0.70 U/mL or greater...... Detected In immunocompromised patients, CMV serology (IgG or IgM antibody titers) may not be reliable and may be misleading in the diagnosis of acute or reactivation CMV disease. The preferred method for diagnosis is culture of virus and/or demonstration of viral antigen in peripheral white cells (buffy coat), bronchoalveolar lavage (BAL) cells, or tissue biopsies. This test should not be used for blood donor screening, associated re-entry protocols, or for screening Human Cell, Tissues and Cellular and Tissue-Based Products (HCT/P). The best evidence for current infection is a significant change on two appropriately timed specimens, where both tests are done in the same laboratory at the same time. Performed By: [address] [address] Mixing Machine Tender Cork Gasket: Uche Morley MD, PhD CLIA Number: [id number] Blood BLOOD SPECIMEN / Unknown Lab Venipuncture / Unknown 03/04/2024 4:13 PM [facility] 03/04/2024 4:23 PM [facility] Cindy Garcia MD LAB - CHEMISTRY CHELI MONREAL Performing Organization Address City/[facility]/ZIP Co de Phone Number [address] [address] * C-REACTIVE PROTEIN (03/04/2024 4:13 PM [facility]) Pathologist [facility] C-Reactive Protein 0.5 <=0.5 mg/dL 03/04/2024 4:56 PM [facility] Blood BLOOD SPECIMEN / Unknown Lab Venipuncture / Unknown 03/04/2024 4:13 PM [facility] 03/04/2024 4:27 PM [facility] Cindy Garcia MD LAB - CHEMISTRY CHELI MONREAL Performing Organization Address City/[facility]/ZIP Co de Phone Number [address] [address], [facility] [phone] * MARLINE BLOOD SCREEN W/REFLEX TITER (03/04/2024 4:13 PM [facility]) Pathologist [facility] MARLINE IgG None Detected None Detected 03/05/2024 11:42 PM [facility] Comment: If suspicion of connective tissue disease is strong and MARLINE EIA is negative, consider testing for MARLINE by IFA ([id number]). INTERPRETIVE INFORMATION: Anti-Nuclear Antibodies (MARLINE), IgG by TOÑA Antinuclear Antibodies (MARLINE), IgG by TOÑA: MARLINE specimens are screened using enzyme-linked immunosorbent assay (TOÑA) methodology. All TOÑA results reported as Detected are further tested by indirect fluorescent assay (IFA) using HEp-2 substrate with an IgG-specific conjugate. The MARLINE TOÑA screen is designed to detect antibodies against dsDNA, histones, SS-A (Ro), SS-B (La), Pimentel, Pimentel/DIVISION ORDER TECHNICIAN, Scl-70, Mey-1, centromeric proteins, other antigens extracted from the HEp-2 cell nucleus. MARLINE TOÑA assays have been reported to have lower sensitivities than MARLINE IFA for systemic autoimmune rheumatic diseases (SARD). Negative results do not necessarily rule out SARD. Performed By: [facility] [address] [place] [address] Mixing Machine Tender Cork Gasket: Uche Morley MD, PhD CLIA Number: [id number] Blood BLOOD SPECIMEN / Unknown Lab Venipuncture / Unknown 03/04/2024 4:13 PM [facility] 03/04/2024 4:23 PM [facility] [employer] Cindy Garcia MD LAB - CHEMISTRY CHELI MONREAL [email or web address]) [address] [place] [address], [facility] * ZINC BLOOD (03/04/2024 4:13 PM [facility] [employer]) [facility] Zinc 62.4 60.0 - 120.0 ug/dL 03/06/2024 6:35 AM [employer] [email or web address] ([facility]) Comment: INTERPRETIVE INFORMATION: Zinc, Serum or Plasma Elevated results may be due to skin or collection-related contamination, including the use of a noncertified metal-free collection/transport tube. If contamination concerns exist due to elevated levels of serum/plasma zinc, confirmation with a second specimen collected in a certified metal-free tube is recommended. Circulating zinc concentrations are dependent on albumin status and are depressed with malnutrition. ??Zinc may also be lowered with infection, inflammation, stress, oral contraceptives, and . ??Zinc may be elevated with zinc supplementation or fasting. ??Elevated zinc concentrations may interfere with copper absorption. This test was developed and its performance characteristics determined by [facility]. It has not been cleared or approved by the US Food and Drug Administration. This test was performed in a CLIA certified laboratory and is intended for clinical purposes. Performed By: [facility] [address] [place] [address] Mixing Machine Tender Cork Gasket: Uche Morley MD, PhD CLIA Number: [id number] Blood BLOOD SPECIMEN / Unknown Lab Venipuncture / Unknown 03/04/2024 4:13 PM [facility] 03/04/2024 4:23 PM [facility] [employer] Cindy Garcia MD LAB - CHEMISTRY CHELI MONREAL Performing Organization Address [facility] Co de Phone Number [email or web address] ([facility]) [address] [place] [address] * COPPER BLOOD (03/04/2024 4:13 PM [facility]) [facility] Copper 108.5 70.0 - 140.0 ug/dL 03/06/2024 6:35 AM [facility]) Comment: INTERPRETIVE INFORMATION: Copper, Serum or Plasma Elevated results may be due to skin or collection-related contamination, including the use of a noncertified metal-free collection/transport tube. If contamination concerns exist due to elevated levels of serum/plasma copper, confirmation with a second specimen collected in a certified metal-free tube is recommended. Serum copper may be elevated with infection, inflammation, stress, and copper supplementation. In females, elevated copper may also be caused by oral contraceptives and (concentrations may be elevated up to 3 times normal during the third trimester). This test was developed and its performance characteristics determined by [facility]. It has not been cleared or approved by the US Food and Drug Administration. This test was performed in a CLIA certified laboratory and is intended for clinical purposes. Performed By: [facility] [address] [place] [address] Mixing Machine Tender Cork Gasket: Uche Morley MD, PhD CLIA Number: [id number] Blood BLOOD SPECIMEN / Unknown Lab Venipuncture / Unknown 03/04/2024 4:13 PM [facility] 03/04/2024 4:23 PM [facility] [employer] Cindy Garcia MD LAB - CHEMISTRY CHELI MONREAL Performing Organization Address City/[facility]/ZIP Co de Phone Number [email or web address] ([facility]) [address] * ERYTHROCYTE SEDIMENTATION RATE (03/04/2024 4:13 PM [facility]) Erythrocyte Sedimentation Rate Westergren 14 0 - 20 MM/HR 03/04/2024 5:10 PM [facility] Blood BLOOD SPECIMEN / Unknown Lab Venipuncture / Unknown 03/04/2024 4:13 PM [facility] [facility] [employer] 03/04/2024 4:27 PM [employer] [facility] Cindy Garcia MD LAB - HEMATOLOGY ORD ERABLES Performing Organization Address City/[facility]/ZIP Co de Phone Number [facility] [address] [place] [address], [facility] [phone] * HEPATITIS B SURFACE ANTIBODY (03/04/2024 4:13 PM [facility]) Pathologist [facility] Hepatitis B Virus Surface Antibody Non-react carlos Non-react carlos 03/04/2024 5:12 PM [facility] Comment: < 8 mIU/mL Hepatitis B surface Antibody (HBsAb). Nonreactive for HBsAb - individual is considered not immune to Hepatitis B Virus infection. Hepatitis B Surface Antibody Quantitative 0.3 <8.0 mIU/mL 03/04/2024 5:12 PM [facility] Comment: Hepatitis B Surface Antibody Numeric Result Interpretation: ? Nonreactive: ?<8.0 mIU/mL ? Indeterminate: ??8.0 - 12.0 mIU/mL ? Reactive: ?>12.0 mIU/mL ? Blood BLOOD SPECIMEN / Unknown Lab Venipuncture / Unknown 03/04/2024 4:13 PM [facility] 03/04/2024 4:23 PM [facility] Cindy Garcia MD LAB - CHEMISTRY ORDNatalie MONREAL Performing Organization Address [facility]/ZIP Co de Phone Number [facility] [address] [place] [address], [facility] [phone] * HEPATITIS B CORE ANTIBODY TOTAL (03/04/2024 4:13 PM [facility]) Pathologist [facility] HBc Antibody Total Non-reacti ve Non-reacti ve 03/04/2024 5:12 PM [facility] [facility] Blood BLOOD SPECIMEN / Unknown Lab Venipuncture / Unknown 03/04/2024 4:13 PM [facility] [employer] 03/04/2024 4:23 PM [facility] Cindy Garcia MD LAB - CHEMISTRY CHELI MONREAL [facility] [address] [place] [address], [place] [phone] * FOLATE (03/04/2024 4:13 PM [facility]) [facility] Folate 17.7 7.0 - 31.4 ng/mL 03/04/2024 5:29 PM [employer] [facility] Blood BLOOD SPECIMEN / Unknown Lab Venipuncture / Unknown 03/04/2024 4:13 PM [employer] [facility] [employer] 03/04/2024 4:27 PM [employer] [facility] [employer] Cindy Garcia MD LAB - CHEMISTRY CHELI MONREAL [address] [address], [place] [phone] * VITAMIN B12 (03/04/2024 4:13 PM [facility] [employer]) [facility] Vitamin B12 524 213 - 816 pg/mL 03/04/2024 5:29 PM [employer] [facility] Blood BLOOD SPECIMEN / Unknown Lab Venipuncture / Unknown 03/04/2024 4:13 PM [facility] 03/04/2024 4:27 PM [facility] [facility] [employer] Cindy Garcia MD LAB - CHEMISTRY CHELI MONREAL [address] [address], [place] [phone] * (ABNORMAL) IRON + TRANSFERRIN PANEL [w/Transferrin Sat % + TIBC] (03/04/2024 4:13 PM [facility]) Iron 31(L) 50 - 175 ug/dL 03/04/2024 4:53 PM [facility] Transferrin 257 174 - 382 mg/dL 03/04/2024 4:53 PM [facility] Transferrin Saturation % 10(L) 16 - 50 % 03/04/2024 4:53 PM [facility] TIBC Calculated 321 240 - 450 ug/dL 03/04/2024 4:53 PM [facility] Blood BLOOD SPECIMEN / Unknown Lab Venipuncture / Unknown 03/04/2024 4:13 PM [facility] 03/04/2024 4:23 PM [facility] [employer] Cindy Garica MD LAB - CHEMISTRY CHELI MONREAL Performing Organization Address City/[facility]/ZIP Co de Phone Number [address] [address], [place] [phone] * HEPATITIS C ANTIBODY (03/04/2024 4:13 PM [facility]) Pathologist [facility] Hepatitis C Antibody Non-react carlos Non-reac tive 03/04/2024 5:12 PM [employer] Comment:Hepatitis C Antibody screen indicates no serologic evidence of past or current infection with Hepatitis C Virus. Patients with unexplained liver disease who are immunocompromised or suspected of having acute Hepatitis C infection may benefit from Nucleic Acid Test (YUSRA) for Hepatitis C Viral RNA to confirm Hepatitis C status. Blood BLOOD SPECIMEN / Unknown Lab Venipuncture / Unknown 03/04/2024 4:13 PM [facility] 03/04/2024 4:23 PM [facility] Cindy Garcia MD LAB - CHEMISTRY CHELI MONREAL Performing Organization Address City/[facility]/ZIP Co de Phone Number [address] [address], [place] [phone] * (ABNORMAL) FERRITIN (03/04/2024 4:13 PM [facility]) Pathologist [facility] Ferritin 21(L) 22 - 275 ng/mL 03/04/2024 5:12 PM [employer] Blood BLOOD SPECIMEN / Unknown Lab Venipuncture / Unknown 03/04/2024 4:13 PM [facility] 03/04/2024 4:23 PM [facility] [facility] Cindy Garcia MD LAB - CHEMISTRY CHELI MONREAL [facility] Organization Address City/State/ZIP Co de Phone Number [facility] [address] [place] [address], [facility] [phone] from Last 3 Months Advance Directives * Full Code (Latest Code Status on File) Date Activated Date Inactivated Comments 03/13/2024 9:41 PM 03/23/2024 2:56 PM Care Teams First Mate Relationship Specialty Start Date End Date Timothy Banks MD [address] [place] [id number] PCP - General 10/19/18 Cindy Garcia MD [address] [place] [address] [employer]Oncologis t Hematology and Oncology 03/24/24
--- OUTSIDE RECORDS SUMMARY | 2024-04-09 17:25 | XMS_ITS | Patient Health Summary ---
Author Organization [facility] Address [address] [place] [address] Care Team Providers Care Director Of Procurement Name Role Phone Timothy Banks MD Primary Care Provider [phone] Cindy Garcia MD Unavailable Note from [facility],non-owned Affiliates and Associated Physician Practices is amultiple site organization consisting of ambulatory clinics and hospital sitesin [place], [place]. This disclosure is being madepursuant to the Care Everywhere program and may not contain all information available regarding this patient. Last updated 17.[facility] Allergies * Contrast-Gadolinium Agents For Mri(Urticaria) -Medium Criticality Medications * Be aware that medications may not be up to date on this document. Alwaysverify current medications with the patient. * posaconazole (Noxafil) 100 MG tablet(Started 03/13/2024) Take 3 (three) tablets by mouth daily with dinner for 90 days 2 refills by 03/13/2025 * lansoprazole (Prevacid) 30 MG capsule Take 1 (one) capsule by mouth daily before breakfast * vitamin D3 (Cholecalciferol) 10 MCG (400 UNIT) tablet Take 1 (one) capsule by mouth once daily * folic acid 400 MCG tablet Take 1 (one) tablet by mouth once daily * budesonide-formoterol (Symbicort) 160-4.5 MCG/ACT inhaler Inhale 2 (two) puffs by mouth as needed (has not used in 3 weeks) * dilTIAZem (Cardizem) 120 MG tablet Take 1 (one) tablet by mouth once daily * valACYclovir (Valtrex) 500 MG tablet(Started 03/23/2024) Take 1 (one) tablet by mouth 2 times daily * levoFLOXacin (Levaquin) 500 MG tablet(Started 03/23/2024) Take 1 (one) tablet by mouth every 24 hours * apixaban (Eliquis) 2.5 MG tablet(Started 03/23/2024) Take 1 (one) tablet by mouth 2 times daily * acetaminophen (Tylenol) 325 MG tablet(Started 03/23/2024) Take 2 (two) tablets by mouth every 4 hours as needed Maximum allowable Acetaminophen amount = 4 Grams (4000 mg) / 24 hours. * allopurinol (Zyloprim) 300 MG tablet(Started 03/23/2024) Take 1 (one) tablet by mouth once daily after breakfast * polyethylene glycol 3350 (Miralax) 17 g packet(Started 03/23/2024) Take 17 (seventeen) g by mouth once daily as needed for Constipation * senna (Senokot Extra Strength) 17.2 MG(Started 03/23/2024) Take 17.2 mg by mouth once daily as needed for Constipation * ondansetron, disintegrating, (Zofran ODT) 8 MG tablet(Started 03/23/2024) Take 1 (one) tablet by mouth 2 times daily as needed for Nausea/Vomiting Allow tablet to dissolve on the tongue * ferrous sulfate 325 (65 FE) MG tablet(Started 03/23/2024) Take 1 (one) tablet by mouth every 2 days * venetoclax (Venclexta) 100 MG tablet(Started 04/05/2024) Take 1 (one) tablet by mouth daily with food Reasons: Acute Myelocytic Leukemia 11 refills by 04/05/2025 Ended Medications* venetoclax (Venclexta) 100 MG tablet(Started 03/13/2024) (Discontinued) Take 1 (one) tablet by mouth daily with food Reasons: Acute Myelocytic Leukemia 11 refills by 03/13/2025 * apixaban (Eliquis) 5 MG tablet(Discontinued) Take 1 (one) tablet by mouth 2 times daily * levoFLOXacin (Levaquin) 250 MG tablet(Discontinued) Take 1 (one) tablet by mouth once daily * magnesium oxide (Mag-Ox) 400 MG tablet(Started 03/23/2024)() Take 1 (one) tablet by mouth 2 times daily for 3 days * potassium - sodium phosphates (Phos-Nak) 280-160-250 MG powder(Started 03/23/2024)() Take 1 (one) packet by mouth 3 times daily with meals for 3 days * venetoclax (Venclexta) 100 MG tablet(Started 04/05/2024)(Discontinued) Take 1 (one) tablet by mouth daily with food Reasons: Acute Myelocytic Leukemia 11 refills by 04/05/2025 Active Problems Problem Noted Date Diagnosed Date [...] and heating? Not hard at all 03/13/2024 [facility] - Occupational Stress [...] any time in the past 12 m [facility], were you homeless or living in a detention (including now)? No 03/13/2024 Sex and Gender Information Value Date Recorded Sex Assigned at Male 03/05/2024 8:04 AM GREETING CARD EDITOR Gender Identity Male 03/05/2024 8:04 AM GREETING CARD EDITOR Sexual Orientation Straight 03/05/2024 8: 04 AM GREETING CARD EDITOR Last Filed Vital Signs Vital Sign Reading Time Taken Comments Blood Pressure 127/67 04/01/2024 1:56 PM GREETING CARD EDITOR Pulse 66 04/01/2024 1:56 PM GREETING CARD EDITOR Temperature 36.7 ??C (98.1 ??F) 04/01/2024 1:56 PM CS T Respiratory Rate 18 04/01/2024 1:56 PM GREETING CARD EDITOR Oxygen Saturation 99% 04/01/2024 1:56 PM GREETING CARD EDITOR Inhaled Oxygen Concentration - - Weight 99 kg (218 lb 4.8 oz) 04/01/2024 1:56 PM GREETING CARD EDITOR Height 182.9 cm (6') 03/15/2024 12:17 PM GREETING CARD EDITOR Body Mass Index 29.61 03/15/2024 12:17 PM GREETING CARD EDITOR Procedures * PHOSPHORUS BLOOD(Performed 04/01/2024) Performed for Tumor lysis syndrome (HCC) * URIC ACID BLOOD(Performed 04/01/2024) Performed for Tumor lysis syndrome (HCC) * DIFFERENTIAL MANUAL(Performed 04/01/2024) 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) * MAGNESIUM BLOOD(Performed 04/01/2024) 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) * ERYTHROPOIETIN(Performed 04/01/2024) 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) * SOLUBLE TRANSFERRIN RECEPTOR(Performed 04/01/2024) 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) * COMPREHENSIVE METABOLIC PANEL(Performed 04/01/2024) 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) * CBC W AUTO DIFFERENTIAL(Performed 04/01/2024) 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) * LAB RESULTS ORDER(Performed 03/25/2024) * DIFFERENTIAL MANUAL(Performed 03/23/2024) * MAGNESIUM BLOOD(Performed 03/23/2024) * URIC ACID BLOOD(Performed 03/23/2024) * PHOSPHORUS BLOOD(Performed 03/23/2024) * COMPREHENSIVE METABOLIC PANEL(Performed 03/23/2024) * LDH BLOOD(Performed 03/23/2024) * PTT SLH(Performed 03/23/2024) * PT-INR SLH(Performed 03/23/2024) * CBC W AUTO DIFFERENTIAL(Performed 03/23/2024) * MAGNESIUM BLOOD(Performed 03/22/2024) * URIC ACID BLOOD(Performed 03/22/2024) * PHOSPHORUS BLOOD(Performed 03/22/2024) * COMPREHENSIVE METABOLIC PANEL(Performed 03/22/2024) * LDH BLOOD(Performed 03/22/2024) * DIFFERENTIAL MANUAL(Performed 03/22/2024) * MAGNESIUM BLOOD(Performed 03/22/2024) * URIC ACID BLOOD(Performed 03/22/2024) * PHOSPHORUS BLOOD(Performed 03/22/2024) * COMPREHENSIVE METABOLIC PANEL(Performed 03/22/2024) * LDH BLOOD(Performed 03/22/2024) * PTT SLH(Performed 03/22/2024) * PT-INR SLH(Performed 03/22/2024) * CBC W AUTO DIFFERENTIAL(Performed 03/22/2024) * MAGNESIUM BLOOD(Performed 03/21/2024) * URIC ACID BLOOD(Performed 03/21/2024) * PHOSPHORUS BLOOD(Performed 03/21/2024) * COMPREHENSIVE METABOLIC PANEL(Performed 03/21/2024) * LDH BLOOD(Performed 03/21/2024) * PTT SLH(Performed 03/21/2024) * PT-INR SLH(Performed 03/21/2024) * CBC W AUTO DIFFERENTIAL(Performed 03/21/2024) * MAGNESIUM BLOOD(Performed 03/20/2024) * URIC ACID BLOOD(Performed 03/20/2024) * PHOSPHORUS BLOOD(Performed 03/20/2024) * COMPREHENSIVE METABOLIC PANEL(Performed 03/20/2024) * LDH BLOOD(Performed 03/20/2024) * DIFFERENTIAL MANUAL(Performed 03/20/2024) * LDH BLOOD(Performed 03/20/2024) * PTT SLH(Performed 03/20/2024) * PT-INR SLH(Performed 03/20/2024) * URIC ACID BLOOD(Performed 03/20/2024) * PHOSPHORUS BLOOD(Performed 03/20/2024) * MAGNESIUM BLOOD(Performed 03/20/2024) * COMPREHENSIVE METABOLIC PANEL(Performed 03/20/2024) * CBC W AUTO DIFFERENTIAL(Performed 03/20/2024) * DIFFERENTIAL MANUAL(Performed 03/19/2024) * LDH BLOOD(Performed 03/19/2024) * PTT SLH(Performed 03/19/2024) * PT-INR SLH(Performed 03/19/2024) * URIC ACID BLOOD(Performed 03/19/2024) * PHOSPHORUS BLOOD(Performed 03/19/2024) * MAGNESIUM BLOOD(Performed 03/19/2024) * COMPREHENSIVE METABOLIC PANEL(Performed 03/19/2024) * CBC W AUTO DIFFERENTIAL(Performed 03/19/2024) * EKG 12-LEAD(Performed 03/18/2024) Performed for Inverted T wave * PATHOLOGY PERIPHERAL SMEAR REVIEW(Performed 03/18/2024) * DIFFERENTIAL MANUAL(Performed 03/18/2024) * LDH BLOOD(Performed 03/18/2024) * PTT SLH(Performed 03/18/2024) * PT-INR SLH(Performed 03/18/2024) * URIC ACID BLOOD(Performed 03/18/2024) * PHOSPHORUS BLOOD(Performed 03/18/2024) * MAGNESIUM BLOOD(Performed 03/18/2024) * COMPREHENSIVE METABOLIC PANEL(Performed 03/18/2024) * CBC W AUTO DIFFERENTIAL(Performed 03/18/2024) * DIFFERENTIAL MANUAL(Performed 03/17/2024) * LDH BLOOD(Performed 03/17/2024) * PTT SLH(Performed 03/17/2024) * PT-INR SLH(Performed 03/17/2024) * URIC ACID BLOOD(Performed 03/17/2024) * PHOSPHORUS BLOOD(Performed 03/17/2024) * MAGNESIUM BLOOD(Performed 03/17/2024) * COMPREHENSIVE METABOLIC PANEL(Performed 03/17/2024) * CBC W AUTO DIFFERENTIAL(Performed 03/17/2024) * DIFFERENTIAL MANUAL(Performed 03/16/2024) * LDH BLOOD(Performed 03/16/2024) * PTT SLH(Performed 03/16/2024) * PT-INR SLH(Performed 03/16/2024) * URIC ACID BLOOD(Performed 03/16/2024) * PHOSPHORUS BLOOD(Performed 03/16/2024) * MAGNESIUM BLOOD(Performed 03/16/2024) * COMPREHENSIVE METABOLIC PANEL(Performed 03/16/2024) * CBC W AUTO DIFFERENTIAL(Performed 03/16/2024) * ECHO COMPLETE W CONTRAST(Performed 03/15/2024) Performed for MDS (myelodysplastic syndrome) ([facility]) * MYELOID MALIGNANCIES MUTATION PNL(Performed 03/15/2024) Performed for MDS (myelodysplastic syndrome) ([facility]) * FISH MDS PANEL BLOOD OR BONE MARROW(Performed 03/15/2024) Performed for MDS (myelodysplastic syndrome) ([facility]) * FISH AML PANEL BLOOD OR BM RFLX PML/DANTE(Performed 03/15/2024) Performed for MDS (myelodysplastic syndrome) ([facility]) * FLOW CYTOMETRY BONE MARROW(Performed 03/15/2024) Performed for MDS (myelodysplastic syndrome) ([facility]) * BONE MARROW BIOPSY (STL)(Performed 03/15/2024) Performed for MDS (myelodysplastic syndrome) ([facility]) * FISH PML/DANTE PANEL(Performed 03/15/2024) Performed for MDS (myelodysplastic syndrome) ([facility]) * CHROMOSOME ANALYSIS BONE MARROW PANEL(Performed 03/15/2024) Performed for MDS (myelodysplastic syndrome) ([facility]) * LAB MISC TEST (NOT BLOOD)(Performed 03/15/2024) * LAB MISC TEST (NOT BLOOD)(Performed 03/15/2024) * LAB MISC TEST (NOT BLOOD)(Performed 03/15/2024) * DIFFERENTIAL MANUAL(Performed 03/15/2024) * LDH BLOOD(Performed 03/15/2024) * PTT SLH(Performed 03/15/2024) * PT-INR SLH(Performed 03/15/2024) * URIC ACID BLOOD(Performed 03/15/2024) * PHOSPHORUS BLOOD(Performed 03/15/2024) * MAGNESIUM BLOOD(Performed 03/15/2024) * COMPREHENSIVE METABOLIC PANEL(Performed 03/15/2024) * CBC W AUTO DIFFERENTIAL(Performed 03/15/2024) * EKG 12-LEAD(Performed 03/14/2024) Performed for MDS (myelodysplastic syndrome) ([facility]) * FLOW CYTOMETRY BLOOD PROFILE(Performed 03/14/2024) Performed for MDS (myelodysplastic syndrome) ([facility]) * DIFFERENTIAL MANUAL(Performed 03/13/2024) * LDH BLOOD(Performed 03/13/2024) * PTT SLH(Performed 03/13/2024) * PT-INR SLH(Performed 03/13/2024) * FIBRINOGEN ACTIVITY(Performed 03/13/2024) * D-DIMER(Performed 03/13/2024) * URIC ACID BLOOD(Performed 03/13/2024) * PHOSPHORUS BLOOD(Performed 03/13/2024) * MAGNESIUM BLOOD(Performed 03/13/2024) * COMPREHENSIVE METABOLIC PANEL(Performed 03/13/2024) * CBC W AUTO DIFFERENTIAL(Performed 03/13/2024) * QUINN-TOVAR VIRUS QUANT BLOOD STL(Performed 03/13/2024) * CYTOMEGALOVIRUS (CMV) QUANTITATIVE PLASMA(Performed 03/13/2024) * CHROMOSOME ANALYSIS LEUKEMIA BLD(Performed 03/04/2024) Performed for MDS (myelodysplastic syndrome) ([facility]) * FISH PML/DANTE PANEL(Performed 03/04/2024) Performed for MDS (myelodysplastic syndrome) ([facility]) * FISH AML PANEL BLOOD OR BM RFLX PML/DANTE(Performed 03/04/2024) Performed for MDS (myelodysplastic syndrome) ([facility]) * FISH AML+MDS PANEL BLOOD OR BONE MARROW(Performed 03/04/2024) Performed for MDS (myelodysplastic syndrome) ([facility]) * MYELOID MALIGNANCIES MUTATION PNL(Performed 03/04/2024) Performed for MDS (myelodysplastic syndrome) ([facility]) * DIFFERENTIAL MANUAL(Performed 03/04/2024) Performed for Neutropenia, unspecified type ([facility]) * BCR-ABL1 CML+AML PCR QUANT PNL(Performed 03/04/2024) Performed for MDS (myelodysplastic syndrome) ([facility]) * CYTOMEGALOVIRUS ANTIBODY IGG BLOOD(Performed 03/04/2024) Performed for MDS (myelodysplastic syndrome) ([facility]) * HEPATITIS C ANTIBODY(Performed 03/04/2024) Performed for Neutropenia, unspecified type (HCC) * HEPATITIS B SURFACE ANTIBODY(Performed 03/04/2024) Performed for Neutropenia, unspecified type (HCC) * HIV-1 HIV-2 ANTIBODY + HIV P24 AG PANEL(Performed 03/04/2024) Performed for Neutropenia, unspecified type (HCC) * ERYTHROCYTE SEDIMENTATION RATE(Performed 03/04/2024) Performed for Neutropenia, unspecified type (HCC) * C-REACTIVE PROTEIN(Performed 03/04/2024) Performed for Neutropenia, unspecified type (HCC) * RHEUMATOID FACTOR BLOOD QUANTITATIVE(Performed 03/04/2024) Performed for Neutropenia, unspecified type (HCC) * MARLINE BLOOD SCREEN W/REFLEX TITER(Performed 03/04/2024) Performed for Neutropenia, unspecified type (HCC) * FERRITIN(Performed 03/04/2024) Performed for Neutropenia, unspecified type (HCC) * IRON + TRANSFERRIN PANEL(Performed 03/04/2024) Performed for Neutropenia, unspecified type (HCC) * TSH REFLEX FREE T4(Performed 03/04/2024) Performed for Neutropenia, unspecified type (HCC) * ZINC BLOOD(Performed 03/04/2024) Performed for Neutropenia, unspecified type (HCC) * COPPER BLOOD(Performed 03/04/2024) Performed for Neutropenia, unspecified type (HCC) * FOLATE(Performed 03/04/2024) Performed for Neutropenia, unspecified type (HCC) * VITAMIN B12(Performed 03/04/2024) Performed for Neutropenia, unspecified type (HCC) * COMPREHENSIVE METABOLIC PANEL(Performed 03/04/2024) Performed for Neutropenia, unspecified type (HCC) * CBC W AUTO DIFFERENTIAL(Performed 03/04/2024) Performed for Neutropenia, unspecified type (HCC) * HEPATITIS B CORE ANTIBODY TOTAL(Performed 03/04/2024) Performed for Neutropenia, unspecified type (HCC) * BONE MARROW BIOPSY (STL)(Performed 02/12/2024) Performed for Illness, unspecified * FLOW CYTOMETRY BONE MARROW(Performed 02/12/2024) Performed for Decreased white blood cell count, unspecified * DERMATOPATHOLOGY(Performed 09/27/2023) * DERMATOPATHOLOGY(Performed 09/24/2013) Results * URIC ACID BLOOD (04/01/2024 3:12 PM GREETING CARD EDITOR) Only the most recent of13 resultswithin the time period is included. Uric Acid 4.0 3.5 - 7.2 mg/dL 04/01/2024 5:52 PM GREETING CARD EDITOR [facility] Blood BLOOD SPECIMEN / Unknown Lab Venipuncture / Unknown 04/01/2024 3:12 PM GREETING CARD EDITOR 04/01/2024 5:30 PM GREETING CARD EDITOR Cindy Garcia MD LAB - CHEMISTRY CHELI MONREAL Performing Organization Address City/[facility] Co de Phone Number [facility] [address] [place] [id number], [facility] [place] [phone] * ERYTHROPOIETIN (04/01/2024 3:12 PM GREETING CARD EDITOR) [facility] Erythropoietin 22 4 - 27 mU/mL 04/02/2024 11:36 AM GREETING CARD EDITOR [employer] ([facility]) Comment: INTERPRETIVE INFORMATION: Erythropoietin Normal serum [...] may benefit from therapy with recombinant EPO ([facility] [id number]). Performed By: [facility] [employer] [address] [place] [address] Tool And Die Maker: Uche Morley MD, PhD CLIA Number: [id number] Blood BLOOD SPECIMEN / Unknown Lab Venipuncture / Unknown 04/01/2024 3:12 PM GREETING CARD EDITOR 04/01/2024 3:22 PM GREETING CARD EDITOR Cindy Garcia MD LAB - CHEMISTRY CHELI MONREAL [facility] ([facility]) [address] [place] [address], [facility] [place] * SOLUBLE TRANSFERRIN RECEPTOR (04/01/2024 3:12 PM GREETING CARD EDITOR) [facility] Soluble Transferrin Receptor 3.3 2.2 - 5.0 mg/L 04/02/2024 9:13 PM GREETING CARD EDITOR [employer] ([facility]) Comment: INTERPRETIVE INFORMATION: Soluble Transferrin Receptor [...] ??High ? Normal ? High Performed By: [facility] [address] [place] [id number] [employer] Maker: Uche Morley MD, PhD CLIA Number: [id number] Blood BLOOD SPECIMEN / Unknown Lab Venipuncture / Unknown 04/01/2024 3:12 PM GREETING CARD EDITOR 04/01/2024 3:22 PM GREETING CARD EDITOR Cindy Garcia MD LAB - CHEMISTRY CHELI MONREAL [facility] ([facility]) [address] [place], [place] [address] * (ABNORMAL) DIFFERENTIAL MANUAL (04/01/2024 3:12 PM GREETING CARD EDITOR) Only the most recent of11 resultswithin the time period is included. Neutrophil % 31(L) 41 - 74 % 04/01/2024 5:13 PM [facility] Lymphocyte % 60(H) 17 - 47 % 04/01/2024 5:13 PM [facility] Monocyte % 9 3 - 11 % 04/01/2024 5:13 PM [facility] Neutrophil Absolute 0.25(L) 1.60 - 7.50 x10E9/L 04/01/2024 5:13 PM [facility] Lymphocyte Absolute 0.48(L) 1.00 - 4.40 x10E9/L 04/01/2024 5:13 PM [facility] Monocyte Absolute 0.07(L) 0.15 - 1.00 x10E9/L 04/01/2024 5:13 PM [facility] RBC Morphology REVIEWED 04/01/2024 5:13 PM [facility] Steven Cells MANY(A) (none) 04/01/2024 5:13 PM [facility] Schistocytes FEW(A) (none) 04/01/2024 5:13 PM [facility] Blood BLOOD SPECIMEN / Unknown Lab Venipuncture / Unknown 04/01/2024 3:12 PM GREETING CARD EDITOR 04/01/2024 3:36 PM GREETING CARD EDITOR Cindy Garcia MD LAB - HEMATOLOGY ORD HEMALATHA [facility] [address] [place] [address], [place] [phone] * (ABNORMAL) CBC W/ DIFFERENTIAL (04/01/2024 3:12 PM GREETING CARD EDITOR) Only the most recent of12 resultswithin the time period is included. WBC 0.8(LL) 4.0 - 10.7 x10E9/L 04/01/2024 5:17 PM [facility] RBC Count 4.17(L) 4.30 - 5.80 x10E12/L 04/01/2024 5:17 PM [facility] Hemoglobin 11.8(L) 13.3 - 17.5 g/dL 04/01/2024 5:17 PM [facility] Hematocrit 37.3(L) 38.7 - 51.1 % 04/01/2024 5:17 PM [facility] MCV 89.4 80.0 - 98.0 fL 04/01/2024 5:17 PM [facility] MCH 28.3 26.7 - 33.6 pg 04/01/2024 5:17 PM [facility] MCHC 31.6(L) 31.7 - 36.3 g/dL 04/01/2024 5:17 PM [facility] RDW-CV 17.3(H) 11.3 - 14.8 % 04/01/2024 5:17 PM [facility] Platelet Count 78(L) 150 - 420 x10E9/L 04/01/2024 5:17 PM [facility] MPV 10.8 7.8 - 11.4 fL 04/01/2024 5:17 PM [facility] Blood BLOOD SPECIMEN / Unknown Lab Venipuncture / Unknown 04/01/2024 3:12 PM GREETING CARD EDITOR 04/01/2024 3:36 PM GREETING CARD EDITOR Cindy Garcia MD LAB - HEMATOLOGY ORD ERABLES [facility] [address] [place] [address], [facility] [place] [phone] * (ABNORMAL) COMPREHENSIVE METABOLIC PANEL (04/01/2024 3:12 PM GREETING CARD EDITOR) Only the most recent of14 resultswithin the time period is included. Pathologist [facility] BUN 16 7 - 26 mg/dL 04/01/2024 4:25 PM [facility] Creatinine 1.28(H) 0.71 - 1.16 mg/dL 04/01/2024 4:25 PM [facility] Sodium 140 136 - 145 mmol/L 04/01/2024 4:25 PM [facility] Potassium 4.2 3.5 - 4.5 mmol/L 04/01/2024 4:25 PM [facility] Comment:Hemolysis detected i n this specimen. Hemolysis may cause false elevations in potassium leading to pseudohyperkalemia or masked hypokalemia. Recommend repeat testing if clinically indicated. Chloride 107 98 - 107 mmol/L 04/01/2024 4:25 PM [facility] CO2 25 22 - 29 mmol/L 04/01/2024 4:25 PM [facility] Glucose 106(H) 70 - 99 mg/dL 04/01/2024 4:25 PM [facility] Calcium 9.2 8.4 - 10.2 mg/dL 04/01/2024 4:25 PM [facility] Protein Total 7.1 6.0 - 8.3 g/dL 04/01/2024 4:25 PM [facility] Comment:Hemolysis detected i n this specimen. Hemolysis is known to cause elevations in this analyte. Caution should be exercised in the interpretation of this result. Recommend repeat testing if clinically indicated. Albumin 3.8 3.4 - 5.0 g/dL 04/01/2024 4:25 PM [facility] Bilirubin Total 0.7 0.2 - 1.2 mg/dL 04/01/2024 4:25 PM [facility] Alkaline Phosphatase 115 40 - 150 U/L 04/01/2024 4:25 PM [facility] ALT 34 5 - 55 U/L 04/01/2024 4:25 PM [facility] AST 30 5 - 34 U/L 04/01/2024 4:25 PM [facility] Comment:Hemolysis detected i n this specimen. Hemolysis is known to cause elevations in this analyte. Caution should be exercised in the interpretation of this result. Recommend repeat testing if clinically indicated. Anion Gap 8 6 - 16 04/01/2024 4:25 PM [facility] BUN/Creatinine Ratio 13 7 - 23 03/11 4:25 PM [facility] Osmolality Calculated 292 275 - 295 mOsm/kg 04/01/2024 4:25 PM [facility] Albumin/Globulin Ratio 1.2 1.1 - 2.3 04/01/2024 4:25 PM [facility] eGFR by CKD-EPI 57(L) >=90 mL/min/1 .73 m2 04/01/2024 4:25 PM [facility] Blood BLOOD SPECIMEN / Unknown Lab Venipuncture / Unknown 04/01/2024 3:12 PM GREETING CARD EDITOR 04/01/2024 3:36 PM GREETING CARD EDITOR Cindy Garcia MD LAB - CHEMISTRY CHELI MONREAL [facility] [address] [place] [address], [facility] [place] [phone] * PHOSPHORUS BLOOD (04/01/2024 3:12 PM GREETING CARD EDITOR) Only the most recent of13 resultswithin the time period is included. Phosphorus 2.9 2.8 - 5.1 mg/dL 04/01/2024 5:52 PM [facility] Blood BLOOD SPECIMEN / Unknown Lab Venipuncture / Unknown 04/01/2024 3:12 PM GREETING CARD EDITOR 04/01/2024 5:30 PM GREETING CARD EDITOR Cindy Garcia MD LAB - CHEMISTRY CHELI MONREAL [facility] [address] [place] [address], [place] [phone] * MAGNESIUM BLOOD (04/01/2024 3:12 PM GREETING CARD EDITOR) Only the most recent of13 resultswithin the time period is included. Magnesium 2.1 1.6 - 2.6 mg/dL 04/01/2024 4:25 PM [facility] Comment:Hemolysis detected i n this specimen. Hemolysis is known to cause elevations in this analyte. Caution should be exercised in the interpretation of this result. Recommend repeat testing if clinically indicated. Blood BLOOD SPECIMEN / Unknown Lab Venipuncture / Unknown 04/01/2024 3:12 PM GREETING CARD EDITOR 04/01/2024 3:36 PM GREETING CARD EDITOR Cindy Garcia MD LAB - CHEMISTRY [facility] [address] [place] [id number], [facility] [place] [phone] * LAB RESULTS ORDER (03/25/2024) 03/25/2024 Narrative 03/25/2024 Ordered by an unspecified provider. Scanned Document LAB - THERAPEUTIC DR [facility] MONITORING ORDERABLES * PTT [facility] (03/23/2024 12:25 AM GREETING CARD EDITOR) Only the most recent of10 resultswithin the time period is included. APTT 35.4 23.0 - 38.4 Seconds 03/23/2024 1:31 AM [facility] Comment:Suggested therapeuti c range for full dose I.V. unfractionated heparin therapy for venous 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 is 71 to 109 seconds. Blood BLOOD SPECIMEN / Unknown Venipuncture / Unknown 03/23/2024 12:25 AM GREETING CARD EDITOR 03/23/2024 1:05 AM GREETING CARD EDITOR Ghanshyam Dewey PA-C LAB - COAGULATION OR DERABLES Performing Organization Address [facility]/ZIP Co de Phone Number [address] [address], [facility] [place] [phone] * (ABNORMAL) PT-INR [facility] (03/23/2024 12:25 AM GREETING CARD EDITOR) Only the most recent of10 resultswithin the time period is included. PT 17.2(H) 12.1 - 14.8 Seconds 03/23/2024 1:31 AM [facility] INR 1.4 See Comment 03/23/2024 1:31 AM [facility] Comment:The suggested therap eutic range for standard coumadin (warfarin) therapy is an INR of 2.0-3.0. For high-risk patients (Mechanical Mitral Valve Prosthesis, etc.), the suggested prophylactic therapeutic range is an INR of 2.5-3.5. Blood BLOOD SPECIMEN / Unknown Venipuncture / Unknown 03/23/2024 12:25 AM GREETING CARD EDITOR 03/23/2024 1:05 AM GREETING CARD EDITOR Ghanshyam Dewey PA-C LAB - COAGULATION OR DERABLES Performing Organization Address [facility]/ZIP Co de Phone Number [address] [address], [facility] [place] [phone] * LDH BLOOD (03/23/2024 12:25 AM GREETING CARD EDITOR) Only the most recent of12 resultswithin the time period is included. [facility] LDH Total 173 125 - 243 Units/L 03/23/2024 1:36 AM GREETING CARD EDITOR [facility] Blood BLOOD SPECIMEN / Unknown Venipuncture / Unknown 03/23/2024 12:25 AM GREETING CARD EDITOR 03/23/2024 1:07 AM GREETING CARD EDITOR Josh Momin MD LAB - CHEMISTRY ORD ERABLES Performing Organization Address [facility]/ZIP Co de Phone Number [address] [address], [facility] [place] [phone] * EKG 12-LEAD (03/18/2024 1:48 PM GREETING CARD EDITOR) Only the most recent of2 resultswithin the time period is included. Pathologist [facility] Ventricular Rate 75 BPM [facility] MUSE Atrial Rate 75 BPM [facility] MUSE P-R Interval 122 ms [facility] MUSE QRS Duration ms 118 ms [facility] MUSE Q-T Interval ms 410 ms [facility] MUSE QTC Calculation (Bezet) 457 ms [facility] MUSE Calculated P [place] 42 degrees SL MUSE Calculated R [place] 36 degrees [facility] MUSE Calculated T [place] -134 degrees [facility] MUSE Interpretation EKG NORMAL SINUS RHYTHM WITH SINUS ARRHYTHMIA INCOMPLETE RIGHT BUNDLE BRANCH BLOCK ST & MARKED T WAVE ABNORMALITY, CONSIDER ANTEROLATERAL ISCHEMIA ABNORMAL ECG NO PREVIOUS ECGS AVAILABLE Confirmed by ROVERTO BELTRE MD ([id number]) on 03/22/2024 12:50:34 PM [facility] MUSE 03/18/2024 1:48 PM GREETING CARD EDITOR 03/22/2024 12:50 PM GREETING CARD EDITOR Caity SwapnaDavis Ortiz ITEM PROCESSING CLERK-FIRE CONTROL MECHANIC ECG ORDERABL ES [facility] MUSE * PATHOLOGY PERIPHERAL SMEAR REVIEW (03/18/2024 8:33 AM GREETING CARD EDITOR) Path Review Confirmed 03/18/2024 2:44 PM GREETING CARD EDITOR [facility] Blood BLOOD SPECIMEN / Unknown Lab Venipuncture / Unknown 03/18/2024 8:33 AM GREETING CARD EDITOR 03/18/2024 8:46 AM GREETING CARD EDITOR Narrative [facility] - 03/18/2024 2:44 PM GREETING CARD EDITOR A rare blast seen. Ghanshyam Dewey PA-C LAB - PATHOLOGY/CYTO LOGY ORDERABLES Performing Organization Address City/[facility]/ZIP Co de Phone Number [facility] [address] [place] [address], [facility] [place] [phone] * ECHO COMPLETE W CONTRAST (03/15/2024 1:47 PM GREETING CARD EDITOR) IVSd 2D 1.314 cm SSM CV FUJ [...] Region Laterality Modality Ultrasound 03/15/2024 2:04 PM GREETING CARD EDITOR Narrative 03/15/2024 5:17 PM GREETING CARD EDITOR Summary ??* The left ventricle is normal [...] 1945 Gender: ? Male Accession #: ? [id number] Ht: ? 72 in Wt: ? 218 lb BSA: ? 2.26 m2 HR: ? 65 bpm BP: ? 103 / ? 55 mmHg Exam Date: ? 03/15/2024 2:04 PM Patient Status: ? I/P Study Site: ? [facility] Primary Location: ? [facility] EStud Info Technical Quality: ? Adequate Exam Type: [...] ? Ted Soler Fellow: ? Josh Knight Fire Extinguisher Tester: ? Dhruv Sorto Left Ventricle ??Left ventricular [...] 2:04 PM Patient Status: I/P Study Site: [facility] Primary Location: [facility] Info Technical Quality: Adequate Exam Type: ECHO [...] Attending Physician: Ted Soler Fellow: Josh Knight Fire Extinguisher Tester: Dhruv Sorto Left Ventricle Left ventricular systolic [...] BLOOD OR BONE MARROW (03/15/2024 9:05 AM GREETING CARD EDITOR) Pathologist [facility] MDS Panel by Fish See Note Normal 024 11:26 AM [facility] ([facility]) Comment: Test Performed: Myelodysplastic Syndrome (MDS) Panel by FISH (FISH MDS P) Specimen Type: Bone Marrow Indication for Testing: Myelodysplastic syndrome, unspecified RESULT Normal FISH Result Deletion 5q: ??not detected Monosomy 7: ??not detected Deletion 7q: ??not detected Trisomy 8: ??not detected Deletion 20q: ??not detected INTERPRETATION There was no evidence of deletion 5q31, monosomy 7, deletion 7q31, trisomy 8, or deletion 28u78-o51.1. This analysis was performed with the MDS panel probes D5S23/EGR1, D7Z1/E9T666, CEP8 (Ortiz [employer]), and Del(20q) (CogniTens). A total of 200 cells were scored for each probe. Cytogenomic Nomenclature (ISCN): nuc nereyda(D5S23,EGR1,D7Z1,Q0D178,D8Z2,F06S755,MYBL2)x2[200' This result has been reviewed and approved by Nabila Gonzalez, PhD, [facility] A portion of this analysis was performed at the following location(s): [facility] Site [facility] INTERPRETIVE INFORMATION: MDS Panel by FISH This test was developed and its performance characteristics determined by [facility]. It has not been cleared or approved by the US Food and Drug Administration. This test was performed in a CLIA certified laboratory and is intended for clinical purposes. EER MDS Fish Panel See Note 2023 11:26 AM GREETING CARD EDITOR [facility] ([facility]) Comment: Authorized individuals can access the DrEd Online Doctor Enhanced Report using the following link: [email or web address] Performed By: [facility] [address] [place] [address] Tool And Die Maker: Uche Morley MD, PhD CLIA Number: [id number] Other BONE MARROW SPECIMEN / Unknown Collection / Unknown 03/15/2024 9:05 AM GREETING CARD EDITOR 03/15/2024 9:30 AM GREETING CARD EDITOR Rodo Perez MD LAB - PATHOLOG Y/CYTOLOGY ORDERABLES [facility]) [address] [place], [place] [address] * FISH AML PANEL BLOOD OR BM RFLX PML/DANTE (03/15/2024 9:05 AM GREETING CARD EDITOR) Only the most recent of2 resultswithin the time period is included. [facility] FISH AML Panel See Note Normal 03/25/2024 10:34 AM GREETING CARD EDITOR [facility] ([facility]) Comment: Test Performed: Acute Myeloid Leukemia Panel by FISH (FISHAML) Specimen Type: Bone Marrow Indication for Testing: Myelodysplastic syndrome, unspecified RESULT Normal FISH Result inv(3) or t(3;3) GATA2::MECOM Fusion: ??not detected Deletion 5q: ??not detected Monosomy 7: ??not detected Deletion 7q: ??not detected t(8;21) RUNX1::JGSU2D2 Fusion: ??not detected 11p15 (NUP98) Rearrangement: ??not detected 11q23 (KMT2A) Rearrangement: ??not detected inv(16) or t(16;16) CBFB::MYH11 Fusion: ??not detected INTERPRETATION There was no evidence of GATA2::MECOM (also known as RPN1-EVI1) fusion due to 3q21/3q26.2 inversion or translocation, deletion 5q31, monosomy 7, deletion 7q31, RUNX1::DDHZ7Y5 fusion due to translocation (8;21)(q21.3;q22), 11p15 (NUP98) rearrangement, 11q23 KMT2A (MLL) rearrangement, or CBFB::MYH11 fusion due to either 16p13.1/16q22 inversion or translocation. This analysis was performed with the AML panel probes RPN1/MECOM, D5S23/EGR1, D7Z1/E7D957, RUNX1/DEIG2F4 (CryoMedix), NUP98 and CBFB-MYH11 (Gen One Cigstems), and MLL (KMT2A) (CytoCell). A total of 200 cells were scored for each probe. Cytogenomic Nomenclature (ISCN): nuc nereyda(RPN1,MECOM,D5S23,EGR1,D7Z1,C0H290,JLFP2Z8,NUP98,KMT2A,MYH11,CBF B,RUNX1)x2[200' This result has been reviewed and approved by Mundo Mejia, PhD, [facility] [place] A portion of this analysis was performed at the following location(s): [facility] INTERPRETIVE INFORMATION: AML Panel by FISH This test was developed and its performance characteristics determined by [facility]. It has not been cleared or approved by the US Food and Drug Administration. This test was performed in a CLIA certified laboratory and is intended for clinical purposes. EER AML Panel by FISH See Note 03/25/2024 10:34 AM GREETING CARD EDITOR [facility] ([facility]) Comment: Authorized individuals can access the DrEd Online Doctor Enhanced Report using the following link: [email or web address] Performed By: [facility] [address] [place] [address] Tool And Die Maker: Uche Morley MD, PhD [place] Number: [id number] Other BONE MARROW SPECIMEN / Unknown Collection / Unknown 03/15/2024 9:05 AM GREETING CARD EDITOR 03/15/2024 9:30 AM GREETING CARD EDITOR Rodo Perez MD LAB - PATHOLOG Y/CYTOLOGY ORDERABLES [facility] ([facility]) [address] [place] [address], [facility] [place] * FLOW CYTOMETRY BONE MARROW (03/15/2024 9:05 AM GREETING CARD EDITOR) Only the most recent of2 resultswithin the time period is included. Case Report Flow Cytometry ?Case: [id number] ? Authorizing Provider: ??Rodo Perez, ?? Collected: ? 03/15/2024 09:05 AM ? MD ? Ordering Location: ? [facility] AC[facility] ? Received: ?03/15/2024 09:30 AM ? Pathologist: ? Angeles Rosado MD ? Specimen: ?Bone Marrow ? 03/15/2024 2:40 PM [facility] Final Diagnosis Bone marrow, flow cytometric immunophenotypic analysis: - Paucicellular specimen with increased myeloblasts detected (42.4% of events) - See interpretation 03/15/2024 2:40 PM [facility] Flow Cytometry Interpretation Viability: 92%, [...] flow cytometry specimen has been reviewed for quality control systems manager purposes. Correlation with the concurrent bone marrow biopsy ([id number]) is required. 03/15/2024 2:40 PM [facility] Flow Cytometry Results Differential Result Comment Flow Cell Count /uL 980 Total Viability % 92.0 Lymphocytes % 13 Dim CD45 Region % 55 Monocytes % 2 Granulocytes % 28 03/15/2024 2:40 PM [facility] Reason for test MDS (myelodysplastic syndrome) (HCC) 238.75 03/15/2024 2:40 PM [facility] Client Specimen ID # [id number] 03/15/2024 2:40 PM [facility] Number of markers 24 were performed. A-2 Flow CD10 A-3 Flow CD13 A-5 Flow CD20 A-11 Flow CD2 A-13 Flow CD14 A-16 Flow CD117 A-17 Flow CD11b A-18 Flow CD11c A-1 Flow CD5 A-4 Flow CD19 A-6 Flow CD33 A-7 Flow CD34 A-8 Flow CD45 A-12 Flow CD7 A-14 Flow CD56 A-15 Flow CD64 A-23 cyCD22 A-24 ecHS47h A-9 [place]+CD19+ A-10 Lambda+CD19+ A-19 Flow HLA-DR A-20 Flow MPO A-21 Flow TdT A-22 cyCD3 03/15/2024 2:40 PM [facility] Pathologist Location at [facility] 03/15/2024 2:40 PM [facility] Disclaimer Test performed at [facility], [address] [place] [address], [address]. *The established laboratory minimum viability is 70%. [...] high complexity clinical testing. 03/15/2024 2:[address] C[address] [facility] Embedded Images 2:[address] [facility] Pathology/Cytolo gy BONE MARROW SPECIMEN / Unknown Collection / Unknown 03/15/2024 9:05 AM GREETING CARD EDITOR 03/15/2024 9:30 AM GREETING CARD EDITOR Rodo Perez MD LAB - PATHOLOG Y/CYTOLOGY ORDERABLES [facility] [address] [place] [address], [facility] [phone] * BONE MARROW BIOPSY (ST[facility]) (03/15/2024 9:05 AM GREETING CARD EDITOR) Only the most recent of2 resultswithin the time period is included. Case Report Bone Marrow Patholog y Report ?Case: [id number] ? Authorizing Provider: ??Rodo Perez, ?? Collected: ? 03/15/2024 09:05 AM ? MD ? Ordering Location: ? [facility] ? Received: ?03/15/2024 09:30 AM ? Pathologist: ? Guillermo Brown MD ? Specimens: ?? A) - Bone Marrow Clot ? B) - Bone Marrow Core ? C) - Bone Marrow Aspirate ? D) - Blood Peripheral ? 03/18/2024 4:01 PM [facility] Final Diagnosis Bone marrow, aspirate, clot section, and core biopsy: - Acute myeloid leukemia. - See description. Peripheral blood smear: - Pancytopenia. - See description. 03/18/2024 4:01 PM [facility] Comment Immunohistochemistry performed show ~30% [...] for a definitive subclassification. 03/18/2024 4:01 PM [facility] Peripheral Smear Description RBC: normocytic anemia. WBC: leukopenia with absolute neutropenia and lymphopenia. No circulating blasts seen. Platelets: decreased in number. 03/18/2024 4:01 PM [facility] Bone Marrow Aspirate Differential count [...] stain): no ring sideroblasts. 03/18/2024 4:01 PM [facility] Bone Marrow Core Biopsy and [...] morphology: peripheral blood only. 03/18/2024 4:01 PM [facility] Flow Cytometry Summary Bone marrow, flow cytometric immunophenotypic analysis ([id number]): - Paucicellular specimen with increased myeloblasts detected (42.4% of events) 03/18/2024 4:01 PM [facility] Clinical History New AML. 03/18/2024 4:01 PM [facility] Gross Description The requisition and [...] in cassette B1. DF 03/18/2024 4:01 PM [facility] Pathologist Location at [facility] 03/18/2024 4:01 PM [facility] Disclaimer The performance characteristics of all immunohistochemical and indirect immunofluorescence stains (if any) cited in this report were determined by the Histopathology Laboratory of [facility]. Some of these tests were developed by [...] the attending (teaching) pathologist. 03/18/2024 4:01 PM [facility] Embedded Images 03/18/2024 4:01 PM [facility] Pathology/Cytology PERIPHERAL BLOOD / Unknown Collection / Unknown 03/15/2024 9:05 AM GREETING CARD EDITOR 03/15/2024 9:30 AM GREETING CARD EDITOR Miscellaneous samples (specimen) BONE MARROW SPECIMEN / Unknown 03/15/2024 9:05 AM GREETING CARD EDITOR 03/15/2024 9:30 AM GREETING CARD EDITOR Miscellaneous samples (specimen) SPECIMEN FROM BONE MARROW OBTAINED BY ASPIRATION / Unknown 03/15/2024 9:05 AM GREETING CARD EDITOR 03/15/2024 9:30 AM GREETING CARD EDITOR Miscellaneous samples (specimen) PERIPHERAL BLOOD / Unknown 03/15/2024 9:05 AM GREETING CARD EDITOR 03/15/2024 11:39 AM GREETING CARD EDITOR Rodo Perez MD LAB - PATHOLOG Y/CYTOLOGY ORDERABLES [facility] LAB [address] [phone] * MYELOID MALIGNANCIES MUTATION PNL (03/15/2024 9:05 AM GREETING CARD EDITOR) Only the most recent of2 resultswithin the time period is included. Interpretation Myeloid Malignancy PNL See Note 03/28/2024 2:06 PM GREETING CARD EDITOR [facility] ([facility]) Comment: Myeloid Malignancies Mutation Panel NGS Submitted diagnosis or diagnosis under consideration for variant interpretation: Myelodysplastic syndrome, unspecified Note: Prior NGS testing performed on this patient (most recent [facility] accession [id number]) was reviewed in conjunction with the current case to compare molecular variants reported. The previously reported molecular variants DNMT3A, IDH1, and CUX1 are again detected in the current study. In addition, new molecular variants in STAG2, BCOR, JAK2, and CEBPA are now detected. TIER 1: Variants of Known Clinical Significance in Hematologic Malignancies 1. IDH1 c.394C>A, p.Nbf837Gkl ([id number]) VAF: 38.4% IDH1 encodes an enzyme that catalyzes the conversion of isocitrate to alpha-ketoglutarate in the citric acid cycle (23). Somatic mutations of IDH1 are found in 4-12% of patients with myelodysplastic syndrome (MDS).This mutation has been reported in hematologic malignancies (4). The prognostic significance of mutated IDH1 in MDS is uncertain (20) (27) (7) (14) (19) (32). 2. DNMT3A c.2206C>T, p.Aph792Clv ([id number]) VAF: 42.2% DNMT3A encodes a DNA [...] stem cell transplantation (2). 3. DNMT3A c.2407A>G, p.Qad423Tmw ([id number]) VAF: 38.8% This mutation has also been reported in hematologic malignancies (4). 4. JAK2 c.1849G>T, p.Wdm715Aim ([id number]) VAF: 14.4% JAK2 encodes a non-receptor protein tyrosine kinase that regulates STAT director of health care marketing factors in response to cytokine receptor signaling (13). JAK2 mutations have been reported in 3-6% of patients with MDS (6) (15) (31). This JAK2 mutation (p.Ydw413Lor) has also been reported in approximately 10-25% of patients with myelodysplastic/myeloproliferative neoplasms (MDS/MPN) (31) (21). This particular JAK2 mutation occurs in the pseudokinase (JH2) domain and leads to activation of the NOLAN-STAT pathway signaling. The prognostic significance of JAK2 mutations in MDS is unclear (6). 5. STAG2 c.1840C>T, p.Qnv705* ([id number]) VAF: 31.7% STAG2 encodes a subunit [...] unmutated cohesin genes (29). 6. BCOR c.3649C>T, p.Lyf9857* ([id number]) VAF: 9.6% BCOR encodes a transcriptional corepressor that interacts with BCL-6 and histone deacetylases (HDACs) (5) (12). Mutations in BCOR are seen in 4% of patients with MDS (5) (11). BCOR mutations in MDS are often frameshift and nonsense mutations that result in yrlp-ly-idxcjsgi (5) (11). This mutation is predicted to alter the normal function of BCOR. BCOR mutations are associated with a higher incidence of AML transformation in MDS patients and shorter overall survival in MDS patients (5) (11) (16). 7. BCOR c.265_048del, p.Lkf530Aotnf*3 ([id number]) VAF: 6.2% This mutation is also predicted to alter the normal function of BCOR. TIER 2: Variants of Unknown Clinical Significance in Hematologic Malignancies 1. CEBPA c.1074_*9del, p.*359Cysext*58 (NM_[id number]) VAF: 4.7% CEBPA encodes a protein that is a member of the basic region leucine zipper family of director of health care marketing factors (18). Somatic mutations of CEBPA are [...] if any, is uncertain. 2. CUX1 c.3085G>A, p.Qos0030Qsc (NM_[id number]) VAF: 44.8% This variant has been rarely reported in hematologic malignancies (1) (10), to the best of our knowledge. References 1: Lynnette P, ??Emmanuelle B, ??Zhanna CLARK et al, Assessment of Minimal Residual Disease by Next Generation Sequencing in Peripheral Blood as a Complementary Tool for Personalized Transplant Monitoring in Myeloid Neoplasms. J Clin Med 2020. PMID:12629080 2: Virginie R, ??Juan HERNANDEZ, ??Ulises Kim et al, Somatic mutations predict poor outcome in patients with myelodysplastic syndrome after hematopoietic stem-cell transplantation. J Clin Oncol 2014. PMID:70829052 3: cBioPortal: http://www.cbioportal.org/ 4: COSMIC: https://cancer.vipin.ac.uk/cosmic 5: Braulio F, ??Yu V, ??Camilla Y et al, BCOR and BCORL1 mutations in myelodysplastic syndromes and related disorders. Blood 2013. PMID:15508357 6: Bill Payne, ??Jennifer C, ??Víctor Stroud et al, JAK2 Mutations Are Rare and Diverse in Myelodysplastic Syndromes: Case Series and Review of the Literature. Hematol Rep 2022. PMID:32761645 7: Jahaira CD, ??Kamla Estrada, ??Mary Mason et al, IDH1 and IDH2 mutations in myelodysplastic syndromes and role in disease progression. Leukemia 2016. PMID:13498362 8: Fried I, ??Day C, ??Lenin MURPHY et al, Frequency, onset and clinical impact of somatic DNMT3A mutations in therapy-related and secondary acute myeloid leukemia. Haematologica 2012. PMID:85831001 9: Fuclucinda O, ??Idania D, ??Luanne Payne et al, CEBPA polymorphisms and mutations in patients with acute myeloid leukemia, myelodysplastic syndrome, multiple myeloma and non-Hodgkin's lymphoma. Blood Cells Mol Dis 2008. PMID:05421382 10: Cassandra Kim, ??Cornell Payne, ??Alexis Valdivia et al, DNA methylation epitypes highlight underlying developmental and disease pathways in acute myeloid leukemia. Genome Res 2020. PMID:41874371 11: Ivan V, ??Jenna E, ??Alondra DEMPSEY et al, Whole-exome sequencing identifies somatic mutations of BCOR in acute myeloid leukemia with normal karyotype. Blood 2011. PMID:03530392 12: Lin RUEDA, ??Yashira W, ??Darcie Estrada et al, BCoR, a novel corepressor involved in BCL-6 repression. Genes Dev 2000. PMID:86305758 13: Fabian SS, ??Jen SJ, ??Amandeep LR et al, Nolan/STAT pathways in cytokine signaling and myeloproliferative disorders: approaches for targeted therapies. Genes Cancer 2010. PMID:93387421 14: Jose J O, ??Charity V, ??Grayson Stroud et al, Mutations of IDH1 and IDH2 genes in early and accelerated phases of myelodysplastic syndromes and MDS/myeloproliferative neoplasms. Leukemia 2010. PMID:90122573 15: Maribelgendorfer M, ??Catherine C, ??Ahsan Talavera et al, Molecular analysis of myelodysplastic syndrome with isolated deletion of the long arm of chromosome 5 reveals a specific spectrum of molecular mutations with prognostic impact: a study on 123 patients and 27 genes. Haematologica 2017. PMID:83677721 16: Gregoria BAR, ??Meliton T, ??Valerie Payne et al, Spectrum and prognostic relevance of driver education instructor gene mutations in acute myeloid leukemia. Blood 2016. PMID:99613796 17: Nicol T, ??Mel MEANS, ??Milton P et al, Dominant-negative mutations of CEBPA, encoding CCAAT/enhancer binding protein-alpha (C/EBPalpha), in acute myeloid leukemia. Yusra Emely 2001. PMID:41463497 18: Nicol Tong, Mel MEANS, Complexity of CEBPA dysregulation in human acute myeloid leukemia. Clin Cancer Res 2009. PMID:09612807 19: Nargis E, ??Jose M, ??Hugh Stroud et al, Clinical and biological implications of driver education instructor mutations in myelodysplastic syndromes. Blood 2013. PMID:80131805 20: Eileen MURPHY, ??Rajinder CHRISTY, ??Juju OTERO et al, Differential prognostic effect of IDH1 versus IDH2 mutations in myelodysplastic syndromes: a [facility] study of 277 patients. Leukemia 2012. PMID:44694528 21: Eileen MURPHY, George TL, Genomics of myelodysplastic syndrome/myeloproliferative neoplasm overlap syndromes. Hematology Am Soc Hematol Educ Program 2020. PMID:37678738 22: Preudhomme C, ??Sagot C, ??Heather N et al, Favorable prognostic significance of CEBPA mutations in patients with de elinor acute myeloid leukemia: a study from the Acute Leukemia [place] Association (JOSE). Blood 2002. PMID:41381468 23: Bulmaro BENTON, Josse H, Isocitrate dehydrogenase 1 and 2 mutations in cancer: alterations at a crossroads of cellular metabolism. J Natl Cancer Inst 2010. PMID:57046040 24: Jose A, ??Ivan V, ??Yudi U et al, [place] analysis of DNMT3A mutations in hematological malignancies. Leukemia 2013. PMID:01278611 25: Kim LANZA, ??Miriam O, ??Arnulfo REINOSO et al, The role of mutations in epigenetic regulators in myeloid malignancies. Yusra Rev Cancer 2012. PMID:48830916 26: Robby F, ??Hubert ISSA, ??Efrem Payne et al, CEBPA mutations in 4708 patients with acute myeloid leukemia: differential impact of bZIP and TAD mutations on outcome. Blood 2021. PMID:27389735 27: Thol F, ??Roverto EM, ??Sam Lynn et al, IDH1 mutations in patients with myelodysplastic syndromes are associated with an unfavorable prognosis. Haematologica 2010. PMID:08777003 28: Thol F, ??Lisa Rubin, ??Bro Valdivia et al, Rare occurrence of DNMT3A mutations in myelodysplastic syndromes. Haematologica 2011. PMID:77769338 29: Josey S, ??Liam AD, ??Joan H et al, Genetic alterations of the cohesin complex genes in myeloid malignancies. Blood 2014. PMID:78477621 30: Barrett MERRITT, ??Tono Stroud, ??Jossue Amador et al, Recurrent DNMT3A mutations in patients with myelodysplastic syndromes. Leukemia 2011. PMID:64288142 31: Lawrence Z, Adamson B, Comparison and Implications of Mutational Profiles of Myelodysplastic Syndromes, Myeloproliferative Neoplasms, and Myelodysplastic/Myeloproliferative Neoplasms: A Brad[place]-Analysis. Front Oncol 2020. PMID:[id number] 32: Cornell N, ??Sarabia F, ??Yuval Flower et al, IDH1 Mutation Is an Independent Inferior Prognostic Indicator for Patients with Myelodysplastic Syndromes. Acta Haematol 2017. PMID:[id number] 33: Ochoa Stroud, Gabriella R, Hieu ALBERTS, DNMT3A in haematological malignancies. Yusra Rev Cancer 2015. PMID:[id number] This result has been reviewed and approved by Jannette Dutta M.D. Low coverage regions: Listed below are regions where the average sequencing depth (number of times a particular nucleotide is sequenced) in at least 20% of the uwtrxo-pi-caywbnzv is less than our stringent cutoff of [...] NOTCH1; NPM1*; NRAS; NSD1; PHF6; PIGA; PPM1D; GJDP28O; PRPF8; PTPN11; RAD21; RUNX1; SAMD9; SAMD9L; SETBP1; [...] developed and its performance characteristics determined by [employer]. It has not been cleared or approved by the U.S. Food and Drug Administration. This test was performed in a CLIA-certified laboratory and is intended for clinical purposes. Myeloid Malignancy Dx Mds Unspec 03/28/2024 2:06 PM [facility] [employer] ([facility]) Myeloid Malignancy Panel Specimen Bone Marrow 03/28/2024 2:06 PM [facility] [employer] ([facility]) EER Myeloid Malignancy See Note 03/28/2024 2:06 PM GREETING CARD EDITOR [facility] [employer] ([facility]) Comment: Authorized individuals can access the [facility] Enhanced Report using the following link: [email or web address] Performed By: [employer] [address] [place] [address] Tool And Die Maker: Uche Morley MD, PhD CLIA Number: [id number] Other BONE MARROW SPECIMEN / Unknown Collection / Unknown 03/15/2024 9:05 AM GREETING CARD EDITOR 03/15/2024 9:30 AM GREETING CARD EDITOR Rodo Perez MD LAB - PATHOLOG Y/CYTOLOGY ORDERABLES Performing Organization Address City/[facility]/ZIP Co de Phone Number [facility]) [address] [place], [place] [address] * LAB MISC TEST (NOT BLOOD) (03/15/2024 9:05 AM GREETING CARD EDITOR) Only the most recent of3 resultswithin the time period is included. Test Name Tp53 03/21/2024 12:06 PM GREETING CARD EDITOR [facility] REF LAB NON INTERF Test Result See Scanned Report 03/21/2024 12:06 PM GREETING CARD EDITOR [facility] REF LAB NON INTERF Comment Ref Lab 03/21/2024 12:06 PM GREETING CARD EDITOR [facility] REF LAB NON INTERF Other BONE MARROW SPECIMEN / Unknown Collection / Unknown 03/15/2024 9:05 AM GREETING CARD EDITOR 03/15/2024 9:30 AM GREETING CARD EDITOR Rodo Perez MD LAB - BODY FLU ID ORDERABLES [facility] REF LAB NON INTERF [address] [place] [address], [place] [phone] * FISH PML/DANTE PANEL (03/15/2024 9:05 AM GREETING CARD EDITOR) Only the most recent of2 resultswithin the time period is included. EER PML/DANTE Translocation by Fish See Note 03/17/2024 4:41 PM GREETING CARD EDITOR [facility] [employer] ([facility]) Comment: Authorized individuals can access the [facility] Enhanced Report using the following link: [email or web address] Performed By: [employer] [address] [place] [address] Tool And Die Maker: Uche Morley MD, PhD CLIA Number: [id number] PML/DANTE Translocation by FISH See Note 03/17/2024 4:41 PM GREETING CARD EDITOR [facility] ([facility]) Comment: Test Performed: PML-DANTE Translocation by FISH (FISH PML) Specimen Type: Bone Marrow Indication for Testing: MDS RESULT Normal FISH Result t(15;17) PML::DANTE ??Fusion: ??not detected INTERPRETATION There was no evidence of PML::DANTE fusion due to translocation (15;17)(q24;q21). This analysis was performed with the PML/DANTE probes ([employer]). A total of 200 cells were scored. Cytogenomic Nomenclature (ISCN): nuc nereyda(PML,DANTE)x2[200' This result has been reviewed and approved by Nabila Gonzalez, PhD, [facility] A portion of this analysis was performed at the following location(s): [employer] Site [place]2 INTERPRETIVE INFORMATION: PML/DANTE Translocation by FISH This test was developed and its performance characteristics determined by [employer]. It has not been cleared or approved by the US Food and Drug Administration. This test was performed in a CLIA certified laboratory and is intended for clinical purposes. Other BONE MARROW SPECIMEN / Unknown Collection / Unknown 03/15/2024 9:05 AM GREETING CARD EDITOR 03/15/2024 9:30 AM GREETING CARD EDITOR Rodo Perez MD LAB - PATHOLOG Y/CYTOLOGY ORDERABLES [facility]) [address] [place] [address], [facility] * CHROMOSOME ANALYSIS BONE MARROW PANEL (03/15/2024 9:05 AM GREETING CARD EDITOR) Chromosome Analysis Bone Marrow See Note Normal 03/22/2024 11:01 AM GREETING CARD EDITOR [facility] ([facility]) Comment: Test Performed: Chromosome Analysis Specimen [...] study. NOTE: Concurrent FISH PML performed under [facility] accession [id number] was NORMAL. FISHAML and FISH MDS P are PENDING and will be reported under [facility] accessions [id number] and [id number]. This result has been reviewed and approved by Randall Yun, PhD, [facility] A portion of this analysis was performed at the following location(s): [facility] [employer] [facility]2 [facility]3 [facility]4 [facility]1 INTERPRETIVE INFORMATION: Chromosome Analysis, Bone Marrow This test was developed and its performance characteristics determined by [employer]. It has not been cleared or approved by the US Food and Drug Administration. This test was performed in a CLIA certified laboratory and is intended for clinical purposes. EER Chromosome Analysis Bone Marrow See Note 03/22/2024 11:01 AM GREETING CARD EDITOR [facility] [employer] ([facility]) Comment: Authorized individuals can access the [facility] Enhanced Report using the following link: [email or web address] Performed By: [employer] [address] [place] [address] Tool And Die Maker: Uche Morley MD, PhD CLIA Number: [id number] Bone marrow BONE MARROW SPECIMEN / Unknown 03/15/2024 9:05 AM GREETING CARD EDITOR 03/15/2024 9:30 AM GREETING CARD EDITOR Rodo Perez MD LAB - PATHOLOG Y/CYTOLOGY ORDERABLES Performing Organization Address City/State/[facility] Co de Phone Number [facility] [employer] ([facility]) [address] [place] [address] * FLOW CYTOMETRY BLOOD PROFILE (03/14/2024 10:32 AM GREETING CARD EDITOR) Case Report Flow Cytometry ?Case: [id number] ? Authorizing Provider: ??Ghanshyam Dewey PA-C ? Collected: ? 03/14/2024 10:32 AM ? Ordering Location: ? [facility] 7N ACUTE ? Received: ?03/14/2024 01:49 PM ? Pathologist: ? Angeles Rosado MD ? Specimen: ?Blood ? 03/14/2024 4:58 PM [facility] PATHOLOGY LAB Final Diagnosis Peripheral blood, flow cytometric immunophenotypic analysis: - 1.2% myeloblasts detected - No evidence of a monoclonal B-cell population - See interpretation 03/14/2024 4:58 PM [facility] PATHOLOGY LAB Flow Cytometry Results Differential Result Comment WBC Count /uL 1,200 Total Viability % 100.0 Lymphocytes % 80 Dim CD45 Region % 4 Monocytes % 4 Granulocytes % 13 03/14/2024 4:58 PM [facility] PATHOLOGY LAB Flow Cytometry Interpretation Viability: 100% B-cells: polytypic, kappa:lambda ratio 1.1:1. Blasts: 1.2% of events are myeloblasts. Monocytes are mature. A peripheral blood smear prepared from the flow cytometry specimen has been reviewed for quality control systems manager purposes. 03/14/2024 4:58 PM [facility] Reason for test MDS (myelodysplastic syndrome) (HCC) 238.75 03/14/2024 4:58 PM [facility] PATHOLOGY LAB Client Specimen ID # [id number] 03/14/2024 4:58 PM [facility] Pathologist Location at [facility] 03/14/2024 4:58 PM [facility] PATHOLOGY LAB Disclaimer Test performed at [facility], [address] [place] [address], [address]. *The established laboratory minimum viability is 70%. [...] high complexity clinical testing. 03/14/2024 4:58 [address] C[address] [facility] PATHOLOGY LAB Embedded Images 4:[address] [facility] PATHOLOGY LAB Number of markers 19 were performed. A-2 Flow CD10 A-3 Flow CD13 A-5 Flow CD20 A-11 Flow CD2 A-13 Flow CD14 A-16 Flow CD117 A-17 Flow CD11b A-18 Flow CD11c A-1 Flow CD5 A-4 Flow CD19 A-6 Flow CD33 A-7 Flow CD34 A-8 Flow CD45 A-12 Flow CD7 A-14 Flow CD56 A-15 Flow CD64 A-9 [place]+CD19+ A-10 Lambda+CD19+ A-19 Flow HLA-DR 03/14/2024 4:[address] [facility] PATHOLOGY LAB Blood BLOOD SPECIMEN / Unknown Lab Venipuncture / Unknown 03/14/2024 10:32 AM GREETING CARD EDITOR 03/14/2024 1:49 PM GREETING CARD EDITOR Ghanshyam Dewey PA-C LAB - PATHOLOGY/CYTO LOGY ORDERABLES Performing Organization Address City/State/[facility] Co de Phone Number [facility] PATHOLOGY LAB [address] [phone] * CYTOMEGALOVIRUS (CMV) QUANTITATIVE PLASMA (03/13/2024 11:26 PM GREETING CARD EDITOR) CMV Quant by PCR, Interp Not detected Not detected 03/14/2024 9:00 AM GREETING CARD EDITOR [facility] MICROBIOLOGY Blood BLOOD SPECIMEN / Unknown Venipuncture / Unknown 03/13/2024 11:26 PM GREETING CARD EDITOR 03/13/2024 11:37 PM GREETING CARD EDITOR Narrative [facility] MICROBIOLOGY - 03/14/2024 9:00 AM GREETING CARD EDITOR The Cytomegalovirus (CMV) DNA analysis utilized a [...] Soler MD LAB - CHEMISTRY OR DERABLES [facility] MICROBIOLOGY [address] [place] [address], [facility] [phone] * QUINN-TOVAR VIRUS QUANT BLOOD STL (03/13/2024 11:26 PM GREETING CARD EDITOR) Pathologist [facility] EBV Quant by PCR, Interp Not detected Not detected 03/14/2024 8:56 AM GREETING CARD EDITOR [facility] MICROBIOLOGY Specimen Type Plasma 03/14/2024 8:56 AM GREETING CARD EDITOR [facility] MICROBIOLOGY Blood BLOOD SPECIMEN / Unknown Venipuncture / Unknown 03/13/2024 11:26 PM GREETING CARD EDITOR 03/13/2024 11:37 PM GREETING CARD EDITOR Narrative [facility] MICROBIOLOGY - 03/14/2024 8:56 AM GREETING CARD EDITOR The Quinn-Tovar viral (EBV) DNA analysis utilized [...] approved test methodology Bruce sharon EBV. Ted Solre MD LAB - CHEMISTRY OR DERABLES [facility] MICROBIOLOGY [address] [facility] [place] [address], [facility] [phone] * D-DIMER (03/13/2024 11:26 PM GREETING CARD EDITOR) D-Dimer Quantitative <0.27 <=0.50 mcg/mL FEU 03/14/2024 12:00 AM GREETING CARD EDITOR [facility]PITAL Comment: In the absence [...] Unknown Venipuncture / Unknown 03/13/2024 11:26 PM GREETING CARD EDITOR 03/13/2024 11:37 PM GREETING CARD EDITOR Ted Soler MD LAB - COAGULATION ORDERABLES [facility] [address] [place] [address], [facility] [phone] * FIBRINOGEN ACTIVITY (03/13/2024 11:26 PM GREETING CARD EDITOR) [facility] Fibrinogen Clauss 362 200 - 400 mg/dL 03/13/2024 11:59 PM GREETING CARD EDITOR [facility] Blood BLOOD SPECIMEN / Unknown Venipuncture / Unknown 03/13/2024 11:26 PM GREETING CARD EDITOR 03/13/2024 11:37 PM GREETING CARD EDITOR Ted Soler MD LAB - COAGULATION ORDERABLES Performing Organization Address [facility]/ZIP Co de Phone Number [address] [address], [place] [phone] * FISH AML+MDS PANEL BLOOD OR BONE MARROW (03/04/2024 4:13 PM GREETING CARD EDITOR) [facility] FISH AML with MDS, Therapy-Rltd AML See Note Normal 03/19/2024 4:32 PM GREETING CARD EDITOR [employer] ([facility]) Comment: Test Performed: Acute Myelogenous Leukemia (AML) with Myelodysplastic Syndrome (MDS) or Therapy-Related AML, by FISH (F TAML MDS) Specimen Type: Peripheral Blood Indication for Testing: ??D46.9 Myelodysplastic syndrome RESULT Normal FISH Result Deletion 5q: ??not detected Monosomy 7: ??not detected Deletion 7q: ??not detected 11q23 (KMT2A) Rearrangement: ??not detected INTERPRETATION There was no evidence of deletion 5q31, monosomy 7, deletion 7q31, or 11q23 KMT2A (MLL) rearrangement. This analysis was performed with the Therapy-Related AML panel probes D5S23/EGR1, D7Z1/J9T893, and MLL (KMT2A) ([employer]). A total of 200 cells were scored for each probe. Cytogenomic Nomenclature (ISCN): nuc nereyda(D5S23,EGR1,D7Z1,Q2H071,KMT2A)x2[200' This result has been reviewed and approved by Charles Pablo MD, [facility] INTERPRETIVE INFORMATION: AML with MDS, Therapy-Related AML, FISH This test was developed and its performance characteristics determined by [employer]. It has not been cleared or approved by the US Food and Drug Administration. This test was performed in a CLIA certified laboratory and is intended for clinical purposes. EER AML with MDS, Therapy-Rltd AML FISH See Note 03/19/2024 4:32 PM GREETING CARD EDITOR [employer] ([facility]) Comment: Authorized individuals can access the DrEd Online Doctor Enhanced Report using the following link: [email or web address] Performed By: [employer] [address] [place] [address] Tool And Die Maker: Uche Morley MD, PhD CLIA Number: [id number] Other BLOOD SPECIMEN / Unknown Collection / Unknown 03/04/2024 4:13 PM GREETING CARD EDITOR 03/04/2024 4:23 PM GREETING CARD EDITOR Cindy Garcia MD LAB - PATHOLOGY/CYTO LOGY ORDERABLES [facility]) [address] [place] [address], [facility] * CHROMOSOME ANALYSIS LEUKEMIA BLD (03/04/2024 4:13 PM GREETING CARD EDITOR) Chromosome Analysis Leukemic Blood See Note Normal 03/23/2024 12:39 PM GREETING CARD EDITOR [employer] ([facility]) Comment: Test Performed: Chromosome Analysis Specimen [...] FISH AML/PML and TAML MDS performed under [facility] accessions [id number] and [id number] were NORMAL. This result has been reviewed and approved by Margaret Roberson, PhD, [facility] INTERPRETIVE INFORMATION: Chromosome Analysis, ?Leukemic Blood This test was developed and its performance characteristics determined by [employer]. It has not been cleared or approved by the US Food and Drug Administration. This test was performed in a CLIA certified laboratory and is intended for clinical purposes. EER Chromosome Analysis Leukemic See Note 03/23/2024 12:39 PM GREETING CARD EDITOR [employer] ([facility]) Comment: Authorized individuals can access the DrEd Online Doctor Enhanced Report using the following link: [email or web address] Performed By: [employer] [address] [place] [address] Tool And Die Maker: Uche Morley MD, PhD CLIA Number: [id number] Blood BLOOD SPECIMEN / Unknown Lab Venipuncture / Unknown 03/04/2024 4:13 PM GREETING CARD EDITOR 03/22/2024 5:28 PM GREETING CARD EDITOR Cindy Garcia MD LAB - PATHOLOGY/CYTO LOGY ORDERABLES [facility]) [address] * HIV-1 HIV-2 ANTIBODY + HIV P24 AG PANEL (New on 08/24) (03/04/2024 4:13 PM GREETING CARD EDITOR) Pathologist [facility] HIV Antigen/Antibod y 1 & 2 Non-reacti ve Non-react carlos 03/04/2024 5:12 PM GREETING CARD EDITOR [facility] Comment:No Laboratory eviden ce of HIV infection. Blood BLOOD SPECIMEN / Unknown Lab Venipuncture / Unknown 03/04/2024 4:13 PM GREETING CARD EDITOR 03/04/2024 4:23 PM GREETING CARD EDITOR Cindy Garcia MD LAB - CHEMISTRY ORDE RABLES [facility] [address] [place], [place] [address], [facility] [phone] * BCR-ABL1 CML+AML PCR QUANT PNL (03/04/2024 4:13 PM GREETING CARD EDITOR) Pathologist [facility] Interpretation TNP 03/13/2024 5:08 PM GREETING CARD EDITOR [facility] ([facility]) Comment: Unable to obtain results. Repeated efforts to analyze this specimen have been unsuccessful. LOW CONTROL GENE COPY NUMBER INDICATED SPECIMEN DEGRADATION. Director Review Comment 5:08 PM GREETING CARD EDITOR [facility] ([facility]) Comment: Dawood Sarabia, PhD, [facility] ?Director, Molecular Oncology ?[facility] ?[place] [address] ? Background Comment 03/13/2024 5:08 PM GREETING CARD EDITOR [facility] ([facility]) Comment: This assay can detect three [...] as indicated. Methodology Comment 03/13/2024 5:08 PM GREETING CARD EDITOR [facility] ([facility]) Comment: Total RNA is isolated from [...] developed and its performance characteristics determined by [employer]. It has not been cleared or approved by the Food and Drug Administration. Blood BLOOD SPECIMEN / Unknown Lab Venipuncture / Unknown 03/04/2024 4:13 PM GREETING CARD EDITOR 03/04/2024 4:24 PM GREETING CARD EDITOR Narrative [facility] ([facility]) - 03/13/2024 5:08 PM GREETING CARD EDITOR Performed at: ??01 - [facility] [address] [place], [place] ??[id number] Administrative Secretary: Cinthya Roper [facility], Phone: ??[phone] Performed at: ??02 - [facility] [address] [place], [place] ??[id number] Administrative Secretary: Cinthya Roper [facility], Phone: ??[phone] Cindy Garcia MD LAB - CHEMISTRY [facility] ([address] [address], [place] * TSH REFLEX FREE T4 (03/04/2024 4:13 PM GREETING CARD EDITOR) Pathologist [facility] TSH 0.961 0.350 - 4.940 uIU/mL 03/04/2024 5:29 PM GREETING CARD EDITOR [facility] Blood BLOOD SPECIMEN / Unknown Lab Venipuncture / Unknown 03/04/2024 4:13 PM GREETING CARD EDITOR 03/04/2024 4:27 PM GREETING CARD EDITOR Cindy Garcia MD LAB - CHEMISTRY [facility] [address] [address], [facility] [phone] * RHEUMATOID FACTOR BLOOD QUANTITATIVE (03/04/2024 4:13 PM GREETING CARD EDITOR) [facility] Rheumatoid Factor <15 <30 IU/mL 03/04/2024 4:57 PM GREETING CARD EDITOR [facility] Rheumatoid Factor Screen Negative Negative 03/04/2024 4:57 PM GREETING CARD EDITOR [facility] Blood BLOOD SPECIMEN / Unknown Lab Venipuncture / Unknown 03/04/2024 4:13 PM GREETING CARD EDITOR 03/04/2024 4:23 PM GREETING CARD EDITOR Cindy Garcia MD LAB - CHEMISTRY [facility] [address] [address], [facility] [phone] * CYTOMEGALOVIRUS ANTIBODY IGG BLOOD (03/04/2024 4:13 PM GREETING CARD EDITOR) Pathologist [facility] Cytomegalovirus Antibody IgG <0.20 <=0.70 U/mL 03/05/2024 9:27 PM GREETING CARD EDITOR [facility] [employer] ([facility]) Comment: INTERPRETIVE INFORMATION: Cytomegalovirus Antibody, IgG [...] laboratory at the same time. Performed By: [employer] [address] [place] [address] Tool And Die Maker: Uche Morley MD, PhD CLIA Number: [id number] Blood BLOOD SPECIMEN / Unknown Lab Venipuncture / Unknown 03/04/2024 4:13 PM GREETING CARD EDITOR 03/04/2024 4:23 PM GREETING CARD EDITOR Cindy Garcia MD LAB - CHEMISTRY CHELI MONREAL Performing Organization Address City/[facility]/ZIP Co de Phone Number [facility] ([facility]) [address] [place] [address] * C-REACTIVE PROTEIN (03/04/2024 4:13 PM GREETING CARD EDITOR) [facility] C-Reactive Protein 0.5 <=0.5 mg/dL 03/04/2024 4:56 PM GREETING CARD EDITOR [facility] Blood BLOOD SPECIMEN / Unknown Lab Venipuncture / Unknown 03/04/2024 4:13 PM GREETING CARD EDITOR 03/04/2024 4:27 PM GREETING CARD EDITOR Cindy Garcia MD LAB - CHEMISTRY [place] [address] [address], [facility] [phone] * MARLINE BLOOD SCREEN W/REFLEX TITER (03/04/2024 4:13 PM GREETING CARD EDITOR) MALRINE IgG None Detected None Detected 03/05/2024 11:42 PM GREETING CARD EDITOR [facility] ([facility]) Comment: If suspicion of connective tissue disease is strong and MARLINE EIA is negative, consider testing for MARLINE by IFA ([id number]). INTERPRETIVE INFORMATION: Anti-Nuclear Antibodies (MARLINE), IgG by TOÑA Antinuclear Antibodies (MARLINE), IgG by TOÑA: MARLINE specimens are screened using enzyme-linked immunosorbent assay (TOÑA) methodology. All TOÑA results reported as Detected are further tested by indirect fluorescent assay (IFA) using HEp-2 substrate with an IgG-specific conjugate. The MARLINE TOÑA screen is designed to detect antibodies against dsDNA, histones, SS-A (Ro), SS-B (La), Pimentel, Pimentel/LIVING ADVISOR, Scl-70, Mey-1, centromeric proteins, other antigens extracted from the HEp-2 cell nucleus. MARLINE TOÑA assays have been reported to have lower sensitivities than MARLINE IFA for systemic autoimmune rheumatic diseases (SARD). Negative results do not necessarily rule out SARD. Performed By: [employer] [address] [place] [address] Tool And Die Maker: Uche Morley MD, PhD CLIA Number: [id number] Blood BLOOD SPECIMEN / Unknown Lab Venipuncture / Unknown 03/04/2024 4:13 PM GREETING CARD EDITOR 03/04/2024 4:23 PM GREETING CARD EDITOR Cindy Garcia MD LAB - CHEMISTRY [facility]LI MONREAL [facility] Organization Address City/State/ZIP Co de Phone Number [facility]) [address] [place] [address], [facility] * ZINC BLOOD (03/04/2024 4:13 PM GREETING CARD EDITOR) Zinc 62.4 60.0 - 120.0 ug/dL 03/06/2024 6:35 AM GREETING CARD EDITOR [facility] [employer] ([facility]) Comment: INTERPRETIVE INFORMATION: Zinc, Serum or [...] developed and its performance characteristics determined by [employer]. It has not been cleared or approved by the US Food and Drug Administration. This test was performed in a CLIA certified laboratory and is intended for clinical purposes. Performed By: [facility] [employer] [address] [place] [address] Tool And Die Maker: Uche Morley MD, PhD CLIA Number: [id number] Blood BLOOD SPECIMEN / Unknown Lab Venipuncture / Unknown 03/04/2024 4:13 PM GREETING CARD EDITOR 03/04/2024 4:23 PM GREETING CARD EDITOR Cindy Garcia MD LAB - CHEMISTRY ORDE JOCELIN [facility] [place] Organization Address City/State/ZIP Co de Phone Number [facility] ([facility]) [address] [place] [address] * COPPER BLOOD (03/04/2024 4:13 PM GREETING CARD EDITOR) [facility] Copper 108.5 70.0 - 140.0 ug/dL 03/06/2024 6:35 AM GREETING CARD EDITOR [facility] ([facility]) Comment: INTERPRETIVE INFORMATION: Copper, Serum or [...] developed and its performance characteristics determined by [employer]. It has not been cleared or approved by the US Food and Drug Administration. This test was performed in a CLIA certified laboratory and is intended for clinical purposes. Performed By: [facility] [address] [place] [address] Tool And Die Maker: Uche Morley MD, PhD CLIA Number: [id number] Blood BLOOD SPECIMEN / Unknown Lab Venipuncture / Unknown 03/04/2024 4:13 PM GREETING CARD EDITOR 03/04/2024 4:23 PM GREETING CARD EDITOR Cindy Garcia MD LAB - CHEMISTRY ELIE JOCELIN [facility] ([facility]) [address] [id number], [facility] * ERYTHROCYTE SEDIMENTATION RATE (03/04/2024 4:13 PM GREETING CARD EDITOR) Erythrocyte Sedimentation Rate Westergren 14 0 - 20 MM/HR 03/04/2024 5:10 PM GREETING CARD EDITOR [facility] Blood BLOOD SPECIMEN / Unknown Lab Venipuncture / Unknown 03/04/2024 4:13 PM GREETING CARD EDITOR 03/04/2024 4:27 PM GREETING CARD EDITOR Cindy Garcia MD LAB - HEMATOLOGY ELI PENNY Performing Organization Address City/[facility]/ZIP Co de Phone Number [facility] [address] [place] [address] [phone] * HEPATITIS B SURFACE ANTIBODY (03/04/2024 4:13 PM GREETING CARD EDITOR) Pathologist [facility] Hepatitis B Virus Surface Antibody Non-react carlos Non-react carlos 03/04/2024 5:12 PM [facility] Comment: < 8 mIU/mL Hepatitis B surface Antibody (HBsAb). Nonreactive for HBsAb - individual is considered not immune to Hepatitis B Virus infection. Hepatitis B Surface Antibody Quantitative 0.3 <8.0 mIU/mL 03/04/2024 5:12 PM [facility] Comment: Hepatitis B Surface Antibody Numeric Result Interpretation: ? Nonreactive: ?<8.0 mIU/mL ? Indeterminate: ??8.0 - 12.0 mIU/mL ? Reactive: ?>12.0 mIU/mL ? Blood BLOOD SPECIMEN / Unknown Lab Venipuncture / Unknown 03/04/2024 4:13 PM GREETING CARD EDITOR 03/04/2024 4:23 PM GREETING CARD EDITOR Cindy Garcia MD LAB - CHEMISTRY CHELI MONREAL [address] [address], [place] [phone] * HEPATITIS B CORE ANTIBODY TOTAL (03/04/2024 4:13 PM GREETING CARD EDITOR) HBc Antibody Total Non-reacti ve Non-reacti ve 03/04/2024 5:12 PM GREETING CARD EDITOR [facility] Blood BLOOD SPECIMEN / Unknown Lab Venipuncture / Unknown 03/04/2024 4:13 PM GREETING CARD EDITOR 03/04/2024 4:23 PM GREETING CARD EDITOR Cindy Garcia MD LAB - CHEMISTRY CHELI MONREAL Performing Organization Address City/[facility]/ZIP Co de Phone Number [address] [address], [place] [phone] * FOLATE (03/04/2024 4:13 PM GREETING CARD EDITOR) Folate 17.7 7.0 - 31.4 ng/mL 03/04/2024 5:29 PM GREETING CARD EDITOR [facility] Blood BLOOD SPECIMEN / Unknown Lab Venipuncture / Unknown 03/04/2024 4:13 PM GREETING CARD EDITOR 03/04/2024 4:27 PM GREETING CARD EDITOR Cindy Garcia MD LAB - CHEMISTRY CHELI MONREAL [address] [address], [place] [phone] * VITAMIN B12 (03/04/2024 4:13 PM GREETING CARD EDITOR) Vitamin B12 524 213 - 816 pg/mL 03/04/2024 5:29 PM GREETING CARD EDITOR [facility] Blood BLOOD SPECIMEN / Unknown Lab Venipuncture / Unknown 03/04/2024 4:13 PM GREETING CARD EDITOR 03/04/2024 4:27 PM GREETING CARD EDITOR Cindy Garcia MD LAB - CHEMISTRY CHELI MONREAL Performing Organization Address City/[facility]/ZIP Co de Phone Number [address] [address], [facility] [phone] * (ABNORMAL) IRON + TRANSFERRIN PANEL [w/Transferrin Sat % + TIBC] (03/04/2024 4:13 PM GREETING CARD EDITOR) Pathologist [facility] Iron 31(L) 50 - 175 ug/dL 03/04/2024 4:53 PM GREETING CARD EDITOR [facility] Transferrin 257 174 - 382 mg/dL 03/04/2024 4:53 PM GREETING CARD EDITOR [facility] Transferrin Saturation % 10(L) 16 - 50 % 03/04/2024 4:53 PM [facility] TIBC Calculated 321 240 - 450 ug/dL 03/04/2024 4:53 PM GREETING CARD EDITOR [facility] Blood BLOOD SPECIMEN / Unknown Lab Venipuncture / Unknown 03/04/2024 4:13 PM GREETING CARD EDITOR 03/04/2024 4:23 PM GREETING CARD EDITOR Cindy Garcia MD LAB - CHEMISTRY CHELI MONREAL Performing Organization Address [facility]/ZIP Co de Phone Number [address] [address], [place] [phone] * HEPATITIS C ANTIBODY (03/04/2024 4:13 PM GREETING CARD EDITOR) [facility] Hepatitis C Antibody Non-react carlos Non-reac tive 03/04/2024 5:12 PM GREETING CARD EDITOR [facility] Comment:Hepatitis C Antibody screen indicates no serologic evidence of past or current infection with Hepatitis C Virus. Patients with unexplained liver disease who are immunocompromised or suspected of having acute Hepatitis C infection may benefit from Nucleic Acid Test (YUSRA) for Hepatitis C Viral RNA to confirm Hepatitis C status. Blood BLOOD SPECIMEN / Unknown Lab Venipuncture / Unknown 03/04/2024 4:13 PM GREETING CARD EDITOR 03/04/2024 4:23 PM GREETING CARD EDITOR Cindy Garcia MD LAB - CHEMISTRY CHELI MONREAL Performing Organization Address City/[facility] Co de Phone Number [facility] [address] [place] [address], [facility] [phone] * (ABNORMAL) FERRITIN (03/04/2024 4:13 PM GREETING CARD EDITOR) Pathologist [facility] Ferritin 21(L) 22 - 275 ng/mL 03/04/2024 5:12 PM GREETING CARD EDITOR [facility] Blood BLOOD SPECIMEN / Unknown Lab Venipuncture / Unknown 03/04/2024 4:13 PM GREETING CARD EDITOR 03/04/2024 4:23 PM GREETING CARD EDITOR Cindy Garcia MD LAB - CHEMISTRY ELINatalie HARRELLNIC Performing Organization Address [facility] de Phone Number [facility] [address] [place] [address], [facility] [phone] * DERMATOPATHOLOGY (09/27/2023 12:00 AM CDT) Only the most recent of2 resultswithin the time period is included. Pathologist [facility] Case Report Dermatopathology Report ? Case: [id number] ? Authorizing Provider: ??Timothy Banks MD ? Collected: ? 09/27/2023 12:00 AM ? Ordering Location: ? [facility] - ??Received: ?09/28/2023 10:46 AM ? DermPath Lab ? Pathologist: ? Kerry Pringle MD ? Specimens: ?? A) - Skin, left neck ? B) - Skin, left axilla ? 4 12:35 PM T DERMATOPATHOLOGY LABORATORY Final Diagnosis Specimen A. SKIN, left neck: SEBORRHEIC KERATOSIS, IRRITATED AND INFLAMED (L82.0) PRESENT AT MARGIN Specimen B. SKIN, left axilla: PIGMENTED SEBORRHEIC KERATOSIS (L82.1) PRESENT AT MARGIN 4 12:35 PM [facility] Clinical History A-B: Changing lesion 4 12:35 PM T DERMATOPATHOLOGY LABORATORY Gross Description Specimen A: Received is one formalin filled container labeled with the patient's name and designated left neck. The specimen consists of a shave biopsy measuring 65u60h9 mm. Jar 0. Specimen B: Received is one formalin filled container labeled with the patient's name and designated left axilla. The specimen consists of a non-oriented ellipse of skin measuring 9x5x11 mm. The epidermal surface is unremarkable. The margin is inked green. The 12 o'clock and 6 o'clock tips are submitted in cassette 1. The remainder of the ellipse is serially sectioned and submitted in cassette 2. Jar 0. 4 12:35 PM CDT DERMATOPATHOLOGY LABORATORY Microscopic Description Specimen A. SKIN, left neck: Sections show acanthosis, papillomatosis, hyperkeratosis, and squamous eddies. There is a lymphohistiocytic infiltrate within the papillary dermis. This lesion is present at the margin of the specimen. Specimen B. SKIN, left axilla: Sections show an acanthotic lesion composed of relatively uniform keratinocytes. There is hyperkeratosis and pseudo horn cysts. Pigment is present in the keratinocytes composing this tumor. This lesion is present at the margin of the specimen. 4 12:35 PM CDT DERMATOPATHOLOGY LABORATORY Disclaimer An external and internal positive and negative controls are appropriate for the histochemical, immunohistochemical and immunofluorescence stain(s) in this case (if any), except where stated explicitly. The performance characteristics of the stain(s) cited in this report were developed and its performance characteristic determined by the Dermatopathology Laboratory at [facility], directed by Dr. Randall Pringle. These tests need not be, and therefore are not, approved by the [place] Food and Drug Administration. The tests are used for clinical purposes. Billing Codes Specimen Charges Stain Charges 21928 [id number] 1 1 4 12:35 PM CDT DERMATOPATHOLOGY LABORATORY Embedded Images 4 12:35 PM CDT DERMATOPATHOLOGY LABORATORY Pathology/Cytology TISSUE SPECIMEN FROM SKIN / Unknown 09/27/2023 09/28/2023 10:46 AM CDT Miscellaneous samples (specimen) TISSUE SPECIMEN FROM SKIN / Unknown 09/27/2023 09/28/2023 10:46 AM CDT Timothy Banks MD LAB - PATHOLOGY/CYTO LOGY ORDERABLES DERMATOPATHOLOGY LABORATORY [facility] - Department of Dermatology [facility] Medicine [address] [place] [address], [address] [phone] Care Teams Director Of Procurement Relationship Specialty Start Date End Date Timothy Banks MD [address] [place] [address] PCP - General 10/19/18 Cindy Garcia MD [address] [place] [address] Diagnostics Tech/Oncologis t Hematology and Oncology 03/24/24
--- OUTSIDE RECORDS SUMMARY | 2024-04-09 17:25 | XMS_ITS | Clinical Summary ---
Author Organization [facility] Address [address] [place] [address] Care Team Providers Care Home Therapy Clinician Name Role Phone Timothy Banks MD Primary Care Provider [phone] Cindy Garcia MD Unavailable Source Comments [facility],non-owned Affiliates and Associated Physician Practices is amultiple site organization consisting of ambulatory clinics and hospital sitesin [place], [place], [place] and [place]. This disclosure is being madepursuant to the Care Everywhere program and may not contain all information available regarding this patient. Last updated 17.[facility] Allergies Active Allergy Reactions Criticality Noted Date [...] ieve remis 03/19/2024 MDS (myelodysplastic syndrome) 03/13/2024 Encounters Date Type Department Care Team Description 04/05/2024 Orders Only [facility] [address] [place] [address] Cindy Garcia MD 04/04/2024 Telephone [facility] - Hematology/Oncolog y [address] [place] [phone] Cindy Garcia MD Medication Prior Auth Request 04/01/2024 3:09 PM POT PULLER - 04/01/2024 11:59 PM POT PULLER Hospital Encounter [facility] [address] [facility] ([facility] 2nd [place] [address] Discharge Disposition: Home or Self Care 04/01/2024 2:00 PM POT PULLER Office Visit [facility] - Hematology/Oncolog y [address] [place] [phone] Cindy Garcia MD 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) 04/01/2024 Orders Only [facility] [address] [place] [address] Cindy Garcia MD Tumor lysis syndrome (HCC) 04/01/2024 Travel 04/01/2024 Orders Only [facility] [address] [place] [address] Cindy Garcia MD 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) 03/25/2024 Orders Only [facility] [address] [place] [phone] Kasie Ektaelle Chaney, DE ICER FINISHER-DISTRIBUTING CLERK 03/25/2024 Orders Only [facility] - Hematology/Oncolog y [address] [place] [phone] Cindy Garcia MD Acute myeloid leuk w multilin dysplasia, 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) 03/25/2024 Telephone Transitional Care at [facility] [address] [place] [phone] Adamaris Jesus, dish cloth inspector 03/14/2024 Telephone [facility] - Hematology/Oncolog y [address] [place] [phone] Cindy Garcia MD Medication Prior Auth Request 03/14/2024 Telephone [facility] - Hematology/Oncolog y [address] [place] [phone] Cindy Garcia MD Medication Prior Auth Request 03/14/2024 Telephone [facility] - Hematology/Oncolog y [address] [place] [phone] Cindy Garcia MD Medication Prior Auth Request 03/13/2024 7:14 PM POT PULLER - 03/23/2024 1:56 PM POT PULLER Hospital Encounter [facility] 7N ACUTE [address] [place] [address] Cindy Garcia MD Kumar, Ashwath, MD Schrader, MD Jodi Edwards, Josh Chavez MD Internal Medicine Discharge Disposition: Home or Self Care 03/13/2024 Travel 03/13/2024 Telephone [facility] [address] [place] [phone] Cindy Garcia MD Medication Prior Auth Request 03/13/2024 Orders Only [facility] [address] [place] [address] Sammie Hartman, PharmD 03/13/2024 Orders Only [facility] [address] [place] [address] Cindy Garcia MD 03/04/2024 3:35 PM POT PULLER - 03/04/2024 11:59 PM POT PULLER Hospital Encounter [facility] [address] [place] [address], 2[address] [place] [address] Discharge Disposition: Home or Self Care 03/04/2024 2:00 PM POT PULLER Office Visit [facility] - Hematology/Oncolog y [address] [place] [phone] Cindy Garcia MD MDS (myelodysplastic syndrome) (HCC) (Primary Dx) 03/04/2024 Travel 03/04/2024 Orders Only [facility] [address] [place] [phone] Cindy Garcia MD MDS (myelodysplastic syndrome) (HCC) 03/01/2024 Orders Only [facility] [address] [place] [address] Cindy Garcia MD Neutropenia, unspecified type (HCC) 03/01/2024 Telephone [facility] - Hematology/Oncolog y [address] [place] [phone] Cindy Mansfield MA Appointment (Patient has comfirmed) 02/13/2024 Lab Requisition [facility] - Pathology Lab [address] [place] [phone] Rommel Dinh MD Illness, unspecified 02/12/2024 Lab Requisition [facility] - Pathology Lab [address] [place] [phone] Rommel Dinh MD Decreased white blood cell count, unspecified from Last 3 Months Social History Tobacco Use Types Packs/Day Years [...] and heating? Not hard at all 03/13/2024 [facility] - Occupational Stress [...] any time in the past 12 m [facility], were you homeless or living in a prison (including now)? No 03/13/2024 Sex and Gender Information Value Date Recorded Sex Assigned at Male 03/05/2024 8:04 AM POT PULLER Gender Identity Male 03/05/2024 8:04 AM POT PULLER Sexual Orientation Straight 03/05/2024 8: 04 AM POT PULLER Last Filed Vital Signs Vital Sign Reading Time Taken Comments Blood Pressure 127/67 04/01/2024 1:56 PM POT PULLER Pulse 66 04/01/2024 1:56 PM POT PULLER Temperature 36.7 ??C (98.1 ??F) 04/01/2024 1:56 PM CS T Respiratory Rate 18 04/01/2024 1:56 PM POT PULLER Oxygen Saturation 99% 04/01/2024 1:56 PM POT PULLER Inhaled Oxygen Concentration - - Weight 99 kg (218 lb 4.8 oz) 04/01/2024 1:56 PM POT PULLER Height 182.9 cm (6') 03/15/2024 12:17 PM POT PULLER Body Mass Index 29.61 03/15/2024 12:17 PM POT PULLER Plan of Treatment Upcoming Encounters Date Type Department Care Team (Late st Contact Info) Description 04/11/2024 8:00 AM POT PULLER Hospital Encounter [facility] IVR [address] [place] [phone] Cindy Garcia MD [address] [place] [phone] 04/15/2024 8:30 AM POT PULLER Hospital Encounter [facility] [address] [place] [phone] 04/16/2024 9:00 AM POT PULLER Hospital Encounter [facility] [address] [place] [phone] 04/17/2024 8:30 AM POT PULLER Appointment [facility] [address] [place] [phone] 04/18/2024 9:30 AM POT PULLER Appointment [facility] [address] [place] [phone] 04/18/2024 10:30 AM POT PULLER Office Visit [facility] - Hematology/Oncology [address] [place] [phone] Cindy Garcia MD [address] [place] [address] 04/19/2024 9:00 AM POT PULLER Appointment [facility] [address] [place] [address] 05/13/2024 9:00 AM POT PULLER Appointment [facility] [address] [place] [address] Health Maintenance Due Date Last Done Comments PNEUMOCOCCAL VACCINE 65+ (1 of 2 - PCV) 1950 DTAP/TDAP/TD VACCINES (1 - Tdap) 11/04/1963 ZOSTER VACCINE (1 of 2) 11/04/1963 Respiratory Syncytial Virus (RSV) Vaccine Pt: or over 60 yrs (1 - 1-dose 75+ series) 11/04/2019 DEPRESSION SCREENING 04/10/2023 MEDICARE AWV ? CALENDAR YEAR 2023 COVID-19 VACCINE ( season) 2023 04/14/2021, 06/25/2020, 06/02/2020 INFLUENZA VACCINE Completed 01/23/2024, , 12/25/2021, Additional history exists HEPATITIS B VACCINE Aged Out No longe r eligible based on patient's age to complete this topic HIB VACCINE Aged Out No longer eligi ble based on patient's age to complete this topic HPV VACCINE Aged Out No longer eligi ble based on patient's age to complete this topic MENINGOCOCCAL VACCINE Aged Out No gino gerardo eligible based on patient's age to complete this topic Procedures Procedure Name Priority Date/Time Associated Diagnosis Comments PHOSPHORUS BLOOD Routine 04/01/2024 3:12 PM POT PULLER Tumor lysis syndrome (HCC) URIC ACID BLOOD Routine 04/01/2024 3:12 PM POT PULLER Tumor lysis syndrome (HCC) DIFFERENTIAL MANUAL Routine 04/01/2024 3 :12 PM POT PULLER 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) MAGNESIUM BLOOD Routine 04/01/2024 3:12 PM POT PULLER 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) ERYTHROPOIETIN Routine 04/01/2024 3:12 PM POT PULLER 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) SOLUBLE TRANSFERRIN RECEPTOR Routine 04/01/2024 3:12 PM POT PULLER 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) COMPREHENSIVE METABOLIC PANEL Routine 04/01/2024 3:12 PM POT PULLER 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) CBC W AUTO DIFFERENTIAL Routine 04/01/20 3:12 PM POT PULLER 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) LAB RESULTS ORDER 03/25/2024 DIFFERENTIAL MANUAL AM Draw 03/23/2024 1 2:25 AM POT PULLER MAGNESIUM BLOOD Routine 03/23/2024 12:25 AM POT PULLER URIC ACID BLOOD Routine 03/23/2024 12:25 AM POT PULLER PHOSPHORUS BLOOD Routine 03/23/2024 12:2 5 AM POT PULLER COMPREHENSIVE METABOLIC PANEL Routine 03/23/2024 12:25 AM POT PULLER LDH BLOOD Routine 03/23/2024 12:25 AM POT PULLER PTT SLH AM Draw 03/23/2024 12:25 AM POT PULLER PT-INR [facility] AM Draw 03/23/2024 12:25 AM POT PULLER CBC W AUTO DIFFERENTIAL AM Draw 03/23/20 12:25 AM POT PULLER MAGNESIUM BLOOD Routine 03/22/2024 6:20 PM POT PULLER URIC ACID BLOOD Routine 03/22/2024 6:20 PM POT PULLER PHOSPHORUS BLOOD Routine 03/22/2024 6:20 PM POT PULLER COMPREHENSIVE METABOLIC PANEL Routine 03/22/2024 6:20 PM POT PULLER LDH BLOOD Routine 03/22/2024 6:20 PM POT PULLER DIFFERENTIAL MANUAL AM Draw 03/22/2024 6 :58 AM POT PULLER MAGNESIUM BLOOD Routine 03/22/2024 6:58 AM POT PULLER URIC ACID BLOOD Routine 03/22/2024 6:58 AM POT PULLER PHOSPHORUS BLOOD Routine 03/22/2024 6:58 AM POT PULLER COMPREHENSIVE METABOLIC PANEL Routine 03/22/2024 6:58 AM POT PULLER LDH BLOOD Routine 03/22/2024 6:58 AM POT PULLER PTT [facility] AM Draw 03/22/2024 6:58 AM POT PULLER PT-INR [facility]H AM Draw 03/22/2024 6:58 AM POT PULLER CBC W AUTO DIFFERENTIAL AM Draw 03/22/20 24 6:58 AM POT PULLER MAGNESIUM BLOOD Routine 03/21/2024 3:47 AM POT PULLER URIC ACID BLOOD Routine 03/21/2024 3:47 AM POT PULLER PHOSPHORUS BLOOD Routine 03/21/2024 3:47 AM POT PULLER COMPREHENSIVE METABOLIC PANEL Routine 03/21/2024 3:47 AM POT PULLER LDH BLOOD Routine 03/21/2024 3:47 AM POT PULLER PTT [facility] AM Draw 03/21/2024 3:47 AM POT PULLER PT-INR SLH AM Draw 03/21/2024 3:47 AM POT PULLER CBC W AUTO DIFFERENTIAL AM Draw 03/21/20 24 3:47 AM POT PULLER MAGNESIUM BLOOD Routine 03/20/2024 4:07 PM POT PULLER URIC ACID BLOOD Routine 03/20/2024 4:07 PM POT PULLER PHOSPHORUS BLOOD Routine 03/20/2024 4:07 PM POT PULLER COMPREHENSIVE METABOLIC PANEL Routine 03/20/2024 4:07 PM POT PULLER LDH BLOOD Routine 03/20/2024 4:07 PM POT PULLER DIFFERENTIAL MANUAL AM Draw 03/20/2024 6 :28 AM POT PULLER LDH BLOOD Routine 03/20/2024 6:28 AM POT PULLER PTT [facility]H AM Draw 03/20/2024 6:28 AM POT PULLER PT-INR SLH AM Draw 03/20/2024 6:28 AM POT PULLER URIC ACID BLOOD Routine 03/20/2024 6:28 AM POT PULLER PHOSPHORUS BLOOD Routine 03/20/2024 6:28 AM POT PULLER MAGNESIUM BLOOD Routine 03/20/2024 6:28 AM POT PULLER COMPREHENSIVE METABOLIC PANEL AM Draw 03/20/2024 6:28 AM POT PULLER CBC W AUTO DIFFERENTIAL AM Draw 03/20/20 6:28 AM POT PULLER DIFFERENTIAL MANUAL AM Draw 03/19/2024 6 :23 AM POT PULLER LDH BLOOD Routine 03/19/2024 6:23 AM POT PULLER PTT [facility]H AM Draw 03/19/2024 6:23 AM POT PULLER PT-INR SLH AM Draw 03/19/2024 6:23 AM POT PULLER URIC ACID BLOOD Routine 03/19/2024 6:23 AM POT PULLER PHOSPHORUS BLOOD Routine 03/19/2024 6:23 AM POT PULLER MAGNESIUM BLOOD Routine 03/19/2024 6:23 AM POT PULLER COMPREHENSIVE METABOLIC PANEL AM Draw 03/19/2024 6:23 AM POT PULLER CBC W AUTO DIFFERENTIAL AM Draw 03/19/20 6:23 AM POT PULLER EKG 12-LEAD Routine 03/18/2024 1:48 PM POT PULLER Inverted T wave PATHOLOGY PERIPHERAL SMEAR REVIEW AM Draw 03/18/2024 8:33 AM POT PULLER DIFFERENTIAL MANUAL AM Draw 03/18/2024 8 :33 AM POT PULLER LDH BLOOD Routine 03/18/2024 8:33 AM POT PULLER PTT SLH AM Draw 03/18/2024 8:33 AM POT PULLER PT-INR SLH AM Draw 03/18/2024 8:33 AM POT PULLER URIC ACID BLOOD Routine 03/18/2024 8:33 AM POT PULLER PHOSPHORUS BLOOD Routine 03/18/2024 8:33 AM POT PULLER MAGNESIUM BLOOD Routine 03/18/2024 8:33 AM POT PULLER COMPREHENSIVE METABOLIC PANEL AM Draw 03/18/2024 8:33 AM POT PULLER CBC W AUTO DIFFERENTIAL AM Draw 03/18/20 8:33 AM POT PULLER DIFFERENTIAL MANUAL AM Draw 03/17/2024 5 :28 AM POT PULLER LDH BLOOD Routine 03/17/2024 5:28 AM POT PULLER PTT SLH AM Draw 03/17/2024 5:28 AM POT PULLER PT-INR SLH AM Draw 03/17/2024 5:28 AM POT PULLER URIC ACID BLOOD Routine 03/17/2024 5:28 AM POT PULLER PHOSPHORUS BLOOD Routine 03/17/2024 5:28 AM POT PULLER MAGNESIUM BLOOD Routine 03/17/2024 5:28 AM POT PULLER COMPREHENSIVE METABOLIC PANEL AM Draw 03/17/2024 5:28 AM POT PULLER CBC W AUTO DIFFERENTIAL AM Draw 03/17/20 24 5:28 AM POT PULLER DIFFERENTIAL MANUAL AM Draw 03/16/2024 1 2:04 AM POT PULLER LDH BLOOD Routine 03/16/2024 12:04 AM POT PULLER PTT SLH AM Draw 03/16/2024 12:04 AM POT PULLER PT-INR SLH AM Draw 03/16/2024 12:04 AM POT PULLER URIC ACID BLOOD Routine 03/16/2024 12:04 AM POT PULLER PHOSPHORUS BLOOD Routine 03/16/2024 12:0 4 AM POT PULLER MAGNESIUM BLOOD Routine 03/16/2024 12:04 AM POT PULLER COMPREHENSIVE METABOLIC PANEL AM Draw 03/16/2024 12:04 AM POT PULLER CBC W AUTO DIFFERENTIAL AM Draw 03/16/20 24 12:04 AM POT PULLER ECHO COMPLETE W CONTRAST Routine 03/15/2024 1:47 PM POT PULLER MDS (myelodysplastic syndrome) (HCC) MYELOID MALIGNANCIES MUTATION PNL Routine 03/15/2024 9:05 AM POT PULLER MDS (myelodysplastic syndrome) (HCC) FISH MDS PANEL BLOOD OR BONE MARROW Routine 03/15/2024 9:05 AM POT PULLER MDS (myelodysplastic syndrome) (HCC) FISH AML PANEL BLOOD OR BM RFLX PML/DANTE Routine 03/15/2024 9:05 AM POT PULLER MDS (myelodysplastic syndrome) (HCC) FLOW CYTOMETRY BONE MARROW Routine 03/15/2024 9:05 AM POT PULLER MDS (myelodysplastic syndrome) (HCC) BONE MARROW BIOPSY (STL) Routine 03/15/2024 9:05 AM POT PULLER MDS (myelodysplastic syndrome) (HCC) FISH PML/DANTE PANEL Routine 03/15/2024 9 :05 AM POT PULLER MDS (myelodysplastic syndrome) (HCC) CHROMOSOME ANALYSIS BONE MARROW PANEL Routine 03/15/2024 9:05 AM POT PULLER MDS (myelodysplastic syndrome) (HCC) LAB MISC TEST (NOT BLOOD) Routine 03/15/2024 9:05 AM POT PULLER LAB MISC TEST (NOT BLOOD) Routine 03/15/2024 9:05 AM POT PULLER LAB MISC TEST (NOT BLOOD) Routine 03/15/2024 9:05 AM POT PULLER DIFFERENTIAL MANUAL AM Draw 03/15/2024 7 :53 AM POT PULLER LDH BLOOD Routine 03/15/2024 7:53 AM POT PULLER PTT SLH AM Draw 03/15/2024 7:53 AM POT PULLER PT-INR SLH AM Draw 03/15/2024 7:53 AM POT PULLER URIC ACID BLOOD Routine 03/15/2024 7:53 AM POT PULLER PHOSPHORUS BLOOD Routine 03/15/2024 7:53 AM POT PULLER MAGNESIUM BLOOD Routine 03/15/2024 7:53 AM POT PULLER COMPREHENSIVE METABOLIC PANEL AM Draw 03/15/2024 7:53 AM POT PULLER CBC W AUTO DIFFERENTIAL AM Draw 03/15/20 24 7:53 AM POT PULLER EKG 12-LEAD STAT 03/14/2024 12:30 PM POT PULLER MDS (myelodysplastic syndrome) (HCC) FLOW CYTOMETRY BLOOD PROFILE Routine 03/14/2024 10:32 AM POT PULLER MDS (myelodysplastic syndrome) (HCC) DIFFERENTIAL MANUAL STAT 03/13/2024 1 1:26 PM POT PULLER LDH BLOOD Routine 03/13/2024 11:26 PM POT PULLER PTT SLH Routine 03/13/2024 11:26 PM POT PULLER PT-INR SLH Routine 03/13/2024 11:26 PM POT PULLER FIBRINOGEN ACTIVITY Routine 03/13/2024 1 1:26 PM POT PULLER D-DIMER Routine 03/13/2024 11:26 PM POT PULLER URIC ACID BLOOD Routine 03/13/2024 11:26 PM POT PULLER PHOSPHORUS BLOOD Routine 03/13/2024 11:2 6 PM POT PULLER MAGNESIUM BLOOD Routine 03/13/2024 11:26 PM POT PULLER COMPREHENSIVE METABOLIC PANEL STAT 03/13/2024 11:26 PM POT PULLER CBC W AUTO DIFFERENTIAL STAT 03/13/20 24 11:26 PM POT PULLER QUINN-TOVAR VIRUS QUANT BLOOD STL Routine 03/13/2024 11:26 PM POT PULLER CYTOMEGALOVIRUS (CMV) QUANTITATIVE PLASMA Routine 03/13/2024 11:26 PM POT PULLER CHROMOSOME ANALYSIS LEUKEMIA BLD Routine 03/04/2024 4:13 PM POT PULLER MDS (myelodysplastic syndrome) (HCC) FISH PML/DANTE PANEL Routine 03/04/2024 4 :13 PM POT PULLER MDS (myelodysplastic syndrome) (HCC) FISH AML PANEL BLOOD OR BM RFLX PML/DANTE Routine 03/04/2024 4:13 PM POT PULLER MDS (myelodysplastic syndrome) (HCC) FISH AML+MDS PANEL BLOOD OR BONE MARROW Routine 03/04/2024 4:13 PM POT PULLER MDS (myelodysplastic syndrome) (HCC) MYELOID MALIGNANCIES MUTATION PNL STAT 03/04/2024 4:13 PM POT PULLER MDS (myelodysplastic syndrome) (HCC) DIFFERENTIAL MANUAL Routine 03/04/2024 4 :13 PM POT PULLER Neutropenia, unspecified type (HCC) BCR-ABL1 CML+AML PCR QUANT PNL Routine 03/04/2024 4:13 PM POT PULLER MDS (myelodysplastic syndrome) (HCC) CYTOMEGALOVIRUS ANTIBODY IGG BLOOD Routine 03/04/2024 4:13 PM POT PULLER MDS (myelodysplastic syndrome) (HCC) HEPATITIS C ANTIBODY Routine 03/04/2024 4:13 PM POT PULLER Neutropenia, unspecified type (HCC) HEPATITIS B SURFACE ANTIBODY Routine 03/04/2024 4:13 PM POT PULLER Neutropenia, unspecified type (HCC) HIV-1 HIV-2 ANTIBODY + HIV P24 AG PANEL Routine 03/04/2024 4:13 PM POT PULLER Neutropenia, unspecified type (HCC) ERYTHROCYTE SEDIMENTATION RATE Routine 03/04/2024 4:13 PM POT PULLER Neutropenia, unspecified type (HCC) C-REACTIVE PROTEIN Routine 03/04/2024 4: 13 PM POT PULLER Neutropenia, unspecified type (HCC) RHEUMATOID FACTOR BLOOD QUANTITATIVE Routine 03/04/2024 4:13 PM POT PULLER Neutropenia, unspecified type (HCC) MARLINE BLOOD SCREEN W/REFLEX TITER Routine 03/04/2024 4:13 PM POT PULLER Neutropenia, unspecified type (HCC) FERRITIN Routine 03/04/2024 4:13 PM POT PULLER Neutropenia, unspecified type (HCC) IRON + TRANSFERRIN PANEL Routine 03/04/2024 4:13 PM POT PULLER Neutropenia, unspecified type (HCC) TSH REFLEX FREE T4 Routine 03/04/2024 4: 13 PM POT PULLER Neutropenia, unspecified type (HCC) ZINC BLOOD Routine 03/04/2024 4:13 PM POT PULLER Neutropenia, unspecified type (HCC) COPPER BLOOD Routine 03/04/2024 4:13 PM POT PULLER Neutropenia, unspecified type (HCC) FOLATE Routine 03/04/2024 4:13 PM POT PULLER Neutropenia, unspecified type (HCC) VITAMIN B12 Routine 03/04/2024 4:13 PM POT PULLER Neutropenia, unspecified type (HCC) COMPREHENSIVE METABOLIC PANEL Routine 03/04/2024 4:13 PM POT PULLER Neutropenia, unspecified type (HCC) CBC W AUTO DIFFERENTIAL Routine 03/04/20 4:13 PM POT PULLER Neutropenia, unspecified type (HCC) HEPATITIS B CORE ANTIBODY TOTAL Routine 03/04/2024 4:13 PM POT PULLER Neutropenia, unspecified type (HCC) BONE MARROW BIOPSY (STL) Routine 02/12/2024 9:20 AM POT PULLER Illness, unspecified FLOW CYTOMETRY BONE MARROW Routine 02/12/2024 9:20 AM POT PULLER Decreased white blood cell count, unspecified from Last 3 Months Results * URIC ACID BLOOD (04/01/2024 3:12 PM POT PULLER) Only the most recent of13 resultswithin the time period is included. Pathologist [facility] Uric Acid 4.0 3.5 - 7.2 mg/dL 04/01/2024 5:52 PM POT PULLER [facility] Blood BLOOD SPECIMEN / Unknown Lab Venipuncture / Unknown 04/01/2024 3:12 PM POT PULLER 04/01/2024 5:30 PM POT PULLER Cindy Garcia MD LAB - CHEMISTRY CHELI MONREAL [facility] [address] [place] [phone], [facility] [phone] * ERYTHROPOIETIN (04/01/2024 3:12 PM POT PULLER) Pathologist [facility] Erythropoietin 22 4 - 27 mU/mL 04/02/2024 11:36 AM POT PULLER [facility] ([facility]) Comment: INTERPRETIVE INFORMATION: Erythropoietin Normal serum concentrations [...] may benefit from therapy with recombinant EPO ([facility] [phone]). Performed By: [facility] [address] [place] [address] Linen Room Custodian: Uche Morley MD, PhD CLIA Number: [id number] Blood BLOOD SPECIMEN / Unknown Lab Venipuncture / Unknown 04/01/2024 3:12 PM POT PULLER 04/01/2024 3:22 PM POT PULLER Cindy Garcia MD LAB - CHEMISTRY CHELI MONREAL [facility] ([facility]) [address] * SOLUBLE TRANSFERRIN RECEPTOR (04/01/2024 3:12 PM POT PULLER) [facility] Soluble Transferrin Receptor 3.3 2.2 - 5.0 mg/L 04/02/2024 9:13 PM POT PULLER [employer] [facility] ([facility]) Comment: INTERPRETIVE INFORMATION: Soluble Transferrin Receptor People [...] ??High ? Normal ? High Performed By: [facility] [address] [place] [address] Linen Room Custodian: Uche Morley MD, PhD CLIA Number: [id number] Blood BLOOD SPECIMEN / Unknown Lab Venipuncture / Unknown 04/01/2024 3:12 PM POT PULLER 04/01/2024 3:22 PM POT PULLER Cindy Garcia MD LAB - CHEMISTRY CHELI [facility] ([facility]) [address] * (ABNORMAL) DIFFERENTIAL MANUAL (04/01/2024 3:12 PM POT PULLER) Only the most recent of11 resultswithin the time period is included. Neutrophil % 31(L) 41 - 74 % 04/01/2024 5:13 PM [facility] Lymphocyte % 60(H) 17 - 47 % 04/01/2024 5:13 PM [facility] Monocyte % 9 3 - 11 % 04/01/2024 5:13 PM [facility] Neutrophil Absolute 0.25(L) 1.60 - 7.50 x10E9/L 04/01/2024 5:13 PM [facility] Lymphocyte Absolute 0.48(L) 1.00 - 4.40 x10E9/L 04/01/2024 5:13 PM [facility] Monocyte Absolute 0.07(L) 0.15 - 1.00 x10E9/L 04/01/2024 5:13 PM [facility] RBC Morphology REVIEWED 04/01/2024 5:13 PM [facility] Steven Cells MANY(A) (none) 04/01/2024 5:13 PM [facility] Schistocytes FEW(A) (none) 04/01/2024 5:13 PM [facility] Blood BLOOD SPECIMEN / Unknown Lab Venipuncture / Unknown 04/01/2024 3:12 PM POT PULLER 04/01/2024 3:36 PM POT PULLER Cindy Garcia MD LAB - HEMATOLOGY ORD HEMALATHA [facility] [address] [place] [address], [facility] [phone] * (ABNORMAL) CBC W/ DIFFERENTIAL (04/01/2024 3:12 PM [facility]) Only the most recent of12 resultswithin the time period is included. [facility] WBC 0.8(LL) 4.0 - 10.7 x10E9/L 04/01/2024 5:17 PM [facility] RBC Count 4.17(L) 4.30 - 5.80 x10E12/L 04/01/2024 5:17 PM [facility] Hemoglobin 11.8(L) 13.3 - 17.5 g/dL 04/01/2024 5:17 PM [facility] Hematocrit 37.3(L) 38.7 - 51.1 % 04/01/2024 5:17 PM [facility] MCV 89.4 80.0 - 98.0 fL 04/01/2024 5:17 PM [facility] MCH 28.3 26.7 - 33.6 pg 04/01/2024 5:17 PM [facility] MCHC 31.6(L) 31.7 - 36.3 g/dL 04/01/2024 5:17 PM [facility] RDW-CV 17.3(H) 11.3 - 14.8 % 04/01/2024 5:17 PM [facility] Platelet Count 78(L) 150 - 420 x10E9/L 04/01/2024 5:17 PM [facility] MPV 10.8 7.8 - 11.4 fL 04/01/2024 5:17 PM [facility] Blood BLOOD SPECIMEN / Unknown Lab Venipuncture / Unknown 04/01/2024 3:12 PM [facility] 04/01/2024 3:36 PM [facility] Cindy Garcia MD LAB - HEMATOLOGY ORD ERABLES [facility] [address] [place] [id number], [facility] [phone] * (ABNORMAL) COMPREHENSIVE METABOLIC PANEL (04/01/2024 3:12 PM [facility]) Only the most recent of14 resultswithin the time period is included. [facility] BUN 16 7 - 26 mg/dL 04/01/2024 4:25 PM [facility] Creatinine 1.28(H) 0.71 - 1.16 mg/dL 04/01/2024 4:25 PM [facility] Sodium 140 136 - 145 mmol/L 04/01/2024 4:25 PM [facility] Potassium 4.2 3.5 - 4.5 mmol/L 04/01/2024 4:25 PM [facility] Comment:Hemolysis detected i n this specimen. Hemolysis may cause false elevations in potassium leading to pseudohyperkalemia or masked hypokalemia. Recommend repeat testing if clinically indicated. Chloride 107 98 - 107 mmol/L 04/01/2024 4:25 PM [facility] CO2 25 22 - 29 mmol/L 04/01/2024 4:25 PM [facility] Glucose 106(H) 70 - 99 mg/dL 04/01/2024 4:25 PM [facility] Calcium 9.2 8.4 - 10.2 mg/dL 04/01/2024 4:25 PM [facility] Protein Total 7.1 6.0 - 8.3 g/dL 04/01/2024 4:25 PM [facility] Comment:Hemolysis detected i n this specimen. Hemolysis is known to cause elevations in this analyte. Caution should be exercised in the interpretation of this result. Recommend repeat testing if clinically indicated. Albumin 3.8 3.4 - 5.0 g/dL 04/01/2024 4:25 PM [facility] Bilirubin Total 0.7 0.2 - 1.2 mg/dL 04/01/2024 4:25 PM [facility] Alkaline Phosphatase 115 40 - 150 U/L 04/01/2024 4:25 PM [facility] ALT 34 5 - 55 U/L 04/01/2024 4:25 PM [facility] AST 30 5 - 34 U/L 04/01/2024 4:25 PM [facility] Comment:Hemolysis detected i n this specimen. Hemolysis is known to cause elevations in this analyte. Caution should be exercised in the interpretation of this result. Recommend repeat testing if clinically indicated. Anion Gap 8 6 - 16 04/01/2024 4:25 PM [facility] BUN/Creatinine Ratio 13 7 - 23 03/11 06/2023 4:25 PM [facility] Osmolality Calculated 292 275 - 295 mOsm/kg 04/01/2024 4:25 PM [facility] Albumin/Globulin Ratio 1.2 1.1 - 2.3 04/01/2024 4:25 PM [facility] eGFR by CKD-EPI 57(L) >=90 mL/min/1 .73 m2 04/01/2024 4:25 PM [facility] Blood BLOOD SPECIMEN / Unknown Lab Venipuncture / Unknown 04/01/2024 3:12 PM [facility] 04/01/2024 3:36 PM [facility] Cindy Garcia MD LAB - CHEMISTRY CHELI MONREAL Performing Organization Address City/[facility]/ZIP Co de Phone Number [address] [address], [facility] [phone] * PHOSPHORUS BLOOD (04/01/2024 3:12 PM [facility]) Only the most recent of13 resultswithin the time period is included. Phosphorus 2.9 2.8 - 5.1 mg/dL 04/01/2024 5:52 PM [facility] Blood BLOOD SPECIMEN / Unknown Lab Venipuncture / Unknown 04/01/2024 3:12 PM [facility] 04/01/2024 5:30 PM [facility] Cindy Garcia MD LAB - CHEMISTRY CHELI MONREAL Performing Organization Address City/[facility]/ZIP Co de Phone Number [address] [address], [place] [phone] * MAGNESIUM BLOOD (04/01/2024 3:12 PM [facility]) Only the most recent of13 resultswithin the time period is included. Magnesium 2.1 1.6 - 2.6 mg/dL 04/01/2024 4:25 PM [facility] Comment:Hemolysis detected i n this specimen. Hemolysis is known to cause elevations in this analyte. Caution should be exercised in the interpretation of this result. Recommend repeat testing if clinically indicated. Blood BLOOD SPECIMEN / Unknown Lab Venipuncture / Unknown 04/01/2024 3:12 PM [facility] 04/01/2024 3:36 PM [facility] Cindy Garcia MD LAB - CHEMISTRY CHELI MONREAL Performing Organization Address City/[facility]/ZIP Co de Phone Number [facility] [address] [place] [address], [facility] [phone] * LAB RESULTS ORDER (03/25/2024) 03/25/2024 Narrative 03/25/2024 Ordered by an unspecified provider. Scanned Document LAB - THERAPEUTIC DR UG MONITORING ORDERABLES * PTT [facility] (03/23/2024 12:25 AM [facility]) Only the most recent of10 resultswithin the time period is included. APTT 35.4 23.0 - 38.4 Seconds 03/23/2024 1:31 AM [facility] Comment:Suggested therapeuti c range for full dose I.V. unfractionated heparin therapy for venous 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 is 71 to 109 seconds. Blood BLOOD SPECIMEN / Unknown Venipuncture / Unknown 03/23/2024 12:25 AM [facility] 03/23/2024 1:05 AM [facility] Ghanshyam Dewey PA-C LAB - COAGULATION OR DERABLES Performing Organization Address City/[facility]/ZIP Co de Phone Number [facility] [address] [place] [phone], [facility] [phone] * (ABNORMAL) PT-INR [facility] (03/23/2024 12:25 AM [facility]) Only the most recent of10 resultswithin the time period is included. PT 17.2(H) 12.1 - 14.8 Seconds 03/23/2024 1:31 AM [facility] INR 1.4 See Comment 03/23/2024 1:31 AM [facility] Comment:The suggested therap eutic range for standard coumadin (warfarin) therapy is an INR of 2.0-3.0. For high-risk patients (Mechanical Mitral Valve Prosthesis, etc.), the suggested prophylactic therapeutic range is an INR of 2.5-3.5. Blood BLOOD SPECIMEN / Unknown Venipuncture / Unknown 03/23/2024 12:25 AM [facility] 03/23/2024 1:05 AM [facility] Ghanshyam Dewey PA-C LAB - COAGULATION OR DERABLES Performing Organization Address [facility] Co de Phone Number [address] [address], [facility] [phone] * LDH BLOOD (03/23/2024 12:25 AM [facility]) Only the most recent of12 resultswithin the time period is included. [facility] LDH Total 173 125 - 243 Units/L 03/23/2024 1:36 AM [facility] Blood BLOOD SPECIMEN / Unknown Venipuncture / Unknown 03/23/2024 12:25 AM [facility] 03/23/2024 1:07 AM [facility] Josh Momin MD LAB - CHEMISTRY ORD ERABLES Performing Organization Address [facility] de Phone Number [address] [address], [facility] [phone] * EKG 12-LEAD (03/18/2024 1:48 PM [facility]) Only the most recent of2 resultswithin the time period is included. [facility] Ventricular Rate 75 BPM [facility] MUSE Atrial Rate 75 BPM [facility] MUSE P-R Interval 122 ms [facility] MUSE QRS Duration ms 118 ms [facility] MUSE Q-T Interval ms 410 ms [facility] MUSE QTC Calculation (Bezet) 457 ms [facility] MUSE Calculated P [place] 42 degrees SL MUSE Calculated R [place] 36 degrees SL MUSE Calculated T [place] -134 degrees [facility] MUSE Interpretation EKG NORMAL SINUS RHYTHM WITH SINUS ARRHYTHMIA INCOMPLETE RIGHT BUNDLE BRANCH BLOCK ST & MARKED T WAVE ABNORMALITY, CONSIDER ANTEROLATERAL ISCHEMIA ABNORMAL ECG NO PREVIOUS ECGS AVAILABLE Confirmed by ROVERTO BELTRE MD ([id number]) on 03/22/2024 12:50:34 PM [facility] MUSE 03/18/2024 1:48 PM [facility] 03/22/2024 12:50 PM [facility] Caity Ortiz DE ICER FINISHER-DISTRIBUTING CLERK ECG ORDERABL ES [facility] MUSE * PATHOLOGY PERIPHERAL SMEAR REVIEW (03/18/2024 8:33 AM [facility]) Path Review Confirmed 03/18/2024 2:44 PM [facility] Blood BLOOD SPECIMEN / Unknown Lab Venipuncture / Unknown 03/18/2024 8:33 AM [facility] 03/18/2024 8:46 AM [facility] Narrative [facility] - 03/18/2024 2:44 PM [facility] A rare blast seen. Ghanshyam Dewey PA-C LAB - PATHOLOGY/CYTO LOGY ORDERABLES Performing Organization Address City/[facility]/ZIP Co de Phone Number [address] [phone] [phone] * ECHO COMPLETE W CONTRAST (03/15/2024 1:47 PM [facility]) IVSd 2D 1.314 cm [facility] CV FUJ [...] Region Laterality Modality Ultrasound 03/15/2024 2:04 PM [facility] Narrative 03/15/2024 5:17 PM [facility] Summary ??* The left ventricle is normal [...] 1945 Gender: ? Male Accession #: ? [id number] Ht: ? 72 in Wt: ? 218 lb BSA: ? 2.26 m2 HR: ? 65 bpm BP: ? 103 / ? 55 mmHg Exam Date: ? 03/15/2024 2:04 PM Patient Status: ? I/P Study Site: ? [facility] Primary Location: ? [facility] EStudy Info Technical Quality: ? Adequate Exam [...] ? Ted Soler Fellow: ? Josh Knight Library Technical Assistant: ? Dhruv Sorto Left Ventricle ??Left ventricular [...] ??Consuelo on 03/15/2024 05:17 PM Reviewed by Panchito Moreno ??Yesbola on 03/15/2024 04:56 PM Procedure Note [...] 2:04 PM Patient Status: I/P Study Site: [facility] Primary Location: [facility] EStudy Info Technical Quality: Adequate Exam Type: [...] Attending Physician: Ted Soler Fellow: Josh Knight Library Technical Assistant: Dhruv Sorto Left Ventricle Left ventricular systolic [...] BLOOD OR BONE MARROW (03/15/2024 9:05 AM [facility]) Pathologist [facility] MDS Panel by Fish See Note Normal 024 11:26 AM [facility] [employer] [facility] ([facility]) Comment: Test Performed: Myelodysplastic Syndrome (MDS) Panel by FISH (FISH MDS P) Specimen Type: Bone Marrow Indication for Testing: Myelodysplastic syndrome, unspecified RESULT Normal FISH Result Deletion 5q: ??not detected Monosomy 7: ??not detected Deletion 7q: ??not detected Trisomy 8: ??not detected Deletion 20q: ??not detected INTERPRETATION There was no evidence of deletion 5q31, monosomy 7, deletion 7q31, trisomy 8, or deletion 20x85-p89.1. This analysis was performed with the MDS panel probes D5S23/EGR1, D7Z1/O5Q614, CEP8 ([employer]), and Del(20q) (Mendix). A total of 200 cells were scored for each probe. Cytogenomic Nomenclature (ISCN): nuc nereyda(D5S23,EGR1,D7Z1,D3Q545,D8Z2,U79I721,MYBL2)x2[200' This result has been reviewed and approved by Nabila Gonzalez, PhD, [facility] A portion of this analysis was performed at the following location(s): [facility] Site -IN#2 INTERPRETIVE INFORMATION: MDS Panel by FISH This test was developed and its performance characteristics determined by [facility]. It has not been cleared or approved by the US Food and Drug Administration. This test was performed in a CLIA certified laboratory and is intended for clinical purposes. EER MDS Fish Panel See Note 2023 11:26 AM [facility] [employer] ([facility]) Comment: Authorized individuals can access the Odersun Enhanced Report using the following link: [email or web address] Performed By: [facility] [address] [place] [id number] Linen Room Custodian: Uche Morley MD, PhD CLIA Number: [id number] Other BONE MARROW SPECIMEN / Unknown Collection / Unknown 03/15/2024 9:05 AM [facility] 03/15/2024 9:30 AM [facility] Rodo Perez MD LAB - PATHOLOG Y/CYTOLOGY ORDERABLES Performing Organization Address City/State/[facility] Co de Phone Number MAYNOR [facility] ([facility]) [address] [place] [address], [facility] * FISH AML PANEL BLOOD OR BM RFLX PML/DANTE (03/15/2024 9:05 AM [facility]) Only the most recent of2 resultswithin the time period is included. [facility] FISH AML Panel See Note Normal 03/25/2024 10:34 AM [facility] RUSSELL [facility]gram[facility] ([facility]) Comment: Test Performed: Acute Myeloid Leukemia Panel by FISH (FISHAML) Specimen Type: Bone Marrow Indication for Testing: Myelodysplastic syndrome, unspecified RESULT Normal FISH Result inv(3) or t(3;3) GATA2::MECOM Fusion: ??not detected Deletion 5q: ??not detected Monosomy 7: ??not detected Deletion 7q: ??not detected t(8;21) RUNX1::WENC4T0 Fusion: ??not detected 11p15 (NUP98) Rearrangement: ??not detected 11q23 (KMT2A) Rearrangement: ??not detected inv(16) or t(16;16) CBFB::MYH11 Fusion: ??not detected INTERPRETATION There was no evidence of GATA2::MECOM (also known as RPN1-EVI1) fusion due to 3q21/3q26.2 inversion or translocation, deletion 5q31, monosomy 7, deletion 7q31, RUNX1::GSTW4O1 fusion due to translocation (8;21)(q21.3;q22), 11p15 (NUP98) rearrangement, 11q23 KMT2A (MLL) rearrangement, or CBFB::MYH11 fusion due to either 16p13.1/16q22 inversion or translocation. This analysis was performed with the AML panel probes RPN1/MECOM, D5S23/EGR1, D7Z1/K0S386, RUNX1/EEOZ6U5 ([employer]), NUP98 and CBFB-MYH11 (Or[employer]s), and MLL (KMT2A) (CytoThink[employer]). A total of 200 cells were scored for each probe. Cytogenomic Nomenclature (ISCN): nuc nereyda(RPN1,MECOM,D5S23,EGR1,D7Z1,W7Z426,LWNR4O7,NUP98,KMT2A,MYH11,CBF B,RUNX1)x2[200' This result has been reviewed and approved by Mundo Mejia, PhD, [facility] A portion of this analysis was performed at the following location(s): [facility] Site -CO#1 INTERPRETIVE INFORMATION: AML Panel by FISH This test was developed and its performance characteristics determined by [facility]. It has not been cleared or approved by the US Food and Drug Administration. This test was performed in a CLIA certified laboratory and is intended for clinical purposes. EER AML Panel by FISH See Note 03/25/2024 10:34 AM [facility] [employer] ([facility]) Comment: Authorized individuals can access the Odersun Enhanced Report using the following link: [email or web address] Performed By: [facility] [address] [place] [address] Linen Room Custodian: Uche Morley MD, PhD CLIA Number: [id number] Other BONE MARROW SPECIMEN / Unknown Collection / Unknown 03/15/2024 9:05 AM [facility] 03/15/2024 9:30 AM [facility] Rodo Perez MD LAB - PATHOLOG Y/CYTOLOGY ORDERABLES [employer] ([facility]) [address] [place] [address], [facility] * FLOW CYTOMETRY BONE MARROW (03/15/2024 9:05 AM [facility]) Only the most recent of2 resultswithin the time period is included. Case Report Flow Cytometry ?Case: [id number] ? Authorizing Provider: ??Rodo Perez, ?? Collected: ? 03/15/2024 09:05 AM ? MD ? Ordering Location: ? [facility] ? Received: ?03/15/2024 09:30 AM ? Pathologist: ? Angeles Rosado MD ? Specimen: ?Bone Marrow ? 03/15/2024 2:40 PM [facility] Final Diagnosis Bone marrow, flow cytometric immunophenotypic analysis: - Paucicellular specimen with increased myeloblasts detected (42.4% of events) - See interpretation 03/15/2024 2:40 PM [facility] Flow Cytometry Interpretation Viability: 92%, [...] cytometry specimen has been reviewed for quality assurance supervisor trim purposes. Correlation with the concurrent bone marrow biopsy ([id number]) is required. 03/15/2024 2:40 PM [facility] Flow Cytometry Results Differential Result Comment Flow Cell Count /uL 980 Total Viability % 92.0 Lymphocytes % 13 Dim CD45 Region % 55 Monocytes % 2 Granulocytes % 28 03/15/2024 2:40 PM [facility] Reason for test MDS (myelodysplastic syndrome) (HCC) 238.75 03/15/2024 2:40 PM [facility] Client Specimen ID # [id number] 03/15/2024 2:40 PM [facility] Number of markers 24 were performed. A-2 Flow CD10 A-3 Flow CD13 A-5 Flow CD20 A-11 Flow CD2 A-13 Flow CD14 A-16 Flow CD117 A-17 Flow CD11b A-18 Flow CD11c A-1 Flow CD5 A-4 Flow CD19 A-6 Flow CD33 A-7 Flow CD34 A-8 Flow CD45 A-12 Flow CD7 A-14 Flow CD56 A-15 Flow CD64 A-23 cyCD22 A-24 zeJR35l A-9 Crabtree+CD19+ A-10 Lambda+CD19+ A-19 Flow HLA-DR A-20 Flow MPO A-21 Flow TdT A-22 cyCD3 03/15/2024 2:40 PM [facility] Pathologist Location at [facility] 03/15/2024 2:40 PM [facility] Disclaimer Test performed at [facility], [address] [place] [address], [id number]. *The established laboratory minimum viability is 70%. [...] high complexity clinical testing. 03/15/2024 2:40 PM [facility] Embedded Images 2:40 PM [facility] Pathology/Cytolo gy BONE MARROW SPECIMEN / Unknown Collection / Unknown 03/15/2024 9:05 AM [facility] 03/15/2024 9:30 AM [facility] Rodo Perez MD LAB - PATHOLOG Y/CYTOLOGY ORDERABLES Performing Organization Address City/State/[facility] de Phone Number [facility] [address] [phone] * BONE MARROW BIOPSY (STL) (03/15/2024 9:05 AM [facility]) Only the most recent of2 resultswithin the time period is included. Case Report Bone Marrow Patholog y Report ?Case: [id number] ? Authorizing Provider: ??Rodo Perez, ?? Collected: ? 03/15/2024 09:05 AM ? MD ? Ordering Location: ? [facility] ? Received: ?03/15/2024 09:30 AM ? Pathologist: ? Guillermo Brown, ? Specimens: ?? A) - Bone Marrow Clot ? B) - Bone Marrow Core ? C) - Bone Marrow Aspirate ? D) - Blood Peripheral ? 03/18/2024 4:01 PM [facility] Final Diagnosis Bone marrow, aspirate, clot section, and core biopsy: - Acute myeloid leukemia. - See description. Peripheral blood smear: - Pancytopenia. - See description. 03/18/2024 4:01 PM [facility] Comment Immunohistochemistry performed show ~30% [...] for a definitive subclassification. 03/18/2024 4:01 PM [facility] Peripheral Smear Description RBC: normocytic anemia. WBC: leukopenia with absolute neutropenia and lymphopenia. No circulating blasts seen. Platelets: decreased in number. 03/18/2024 4:01 PM [facility] Bone Marrow Aspirate Differential count [...] stain): no ring sideroblasts. 03/18/2024 4:01 PM [facility] Bone Marrow Core Biopsy and [...] morphology: peripheral blood only. 03/18/2024 4:01 PM [facility] Flow Cytometry Summary Bone marrow, flow cytometric immunophenotypic analysis ([id number]): - Paucicellular specimen with increased myeloblasts detected (42.4% of events) 03/18/2024 4:01 PM [facility] Clinical History New AML. 03/18/2024 4:01 PM [facility] Gross Description The requisition and [...] in cassette B1. DF 03/18/2024 4:01 PM [facility] Pathologist Location at [facility] 03/18/2024 4:01 PM [facility] Disclaimer The performance characteristics of all immunohistochemical and indirect immunofluorescence stains (if any) cited in this report were determined by the Histopathology Laboratory of [facility]. Some of these tests were developed by [...] the attending (teaching) pathologist. 03/18/2024 4:01 PM [facility] Embedded Images 03/18/2024 4:01 PM [facility] Pathology/Cytology PERIPHERAL BLOOD / Unknown Collection / Unknown 03/15/2024 9:05 AM [facility] 03/15/2024 9:30 AM [facility] Miscellaneous samples (specimen) BONE MARROW SPECIMEN / Unknown 03/15/2024 9:05 AM [facility] 03/15/2024 9:30 AM [facility] Miscellaneous samples (specimen) SPECIMEN FROM BONE MARROW OBTAINED BY ASPIRATION / Unknown 03/15/2024 9:05 AM [facility] 03/15/2024 9:30 AM [facility] Miscellaneous samples (specimen) PERIPHERAL BLOOD / Unknown 03/15/2024 9:05 AM [facility] 03/15/2024 11:39 AM [facility] Rodo Perez MD LAB - PATHOLOG Y/CYTOLOGY ORDERABLES [facility] [address] [place], [place] [address] [phone] * MYELOID MALIGNANCIES MUTATION PNL (03/15/2024 9:05 AM [facility]) Only the most recent of2 resultswithin the time period is included. Interpretation Myeloid Malignancy PNL See Note 03/28/2024 2:06 PM [facility] ([facility]) Comment: Myeloid Malignancies Mutation Panel NGS Submitted diagnosis or diagnosis under consideration for variant interpretation: Myelodysplastic syndrome, unspecified Note: Prior NGS testing performed on this patient (most recent [facility] accession [id number]) was reviewed in conjunction with the current case to compare molecular variants reported. The previously reported molecular variants DNMT3A, IDH1, and CUX1 are again detected in the current study. In addition, new molecular variants in STAG2, BCOR, JAK2, and CEBPA are now detected. TIER 1: Variants of Known Clinical Significance in Hematologic Malignancies 1. IDH1 c.394C>A, p.Euh933Xjn (NM_[id number]) VAF: 38.4% IDH1 encodes an enzyme that catalyzes the conversion of isocitrate to alpha-ketoglutarate in the citric acid cycle (23). Somatic mutations of IDH1 are found in 4-12% of patients with myelodysplastic syndrome (MDS).This mutation has been reported in hematologic malignancies (4). The prognostic significance of mutated IDH1 in MDS is uncertain (20) (27) (7) (14) (19) (32). 2. DNMT3A c.2206C>T, p.Xvv426Lfp ([id number]) VAF: 42.2% DNMT3A encodes a DNA [...] stem cell transplantation (2). 3. DNMT3A c.2407A>G, p.Isu473Ayb ([id number]) VAF: 38.8% This mutation has also been reported in hematologic malignancies (4). 4. JAK2 c.1849G>T, p.Eoy530Jvn (NM_[id number]) VAF: 14.4% JAK2 encodes a non-receptor protein tyrosine kinase that regulates STAT licensed vocational nurse factors in response to cytokine receptor signaling (13). JAK2 mutations have been reported in 3-6% of patients with MDS (6) (15) (31). This JAK2 mutation (p.Ffa808Zvi) has also been reported in approximately 10-25% of patients with myelodysplastic/myeloproliferative neoplasms (MDS/MPN) (31) (21). This particular JAK2 mutation occurs in the pseudokinase (JH2) domain and leads to activation of the NOLAN-STAT pathway signaling. The prognostic significance of JAK2 mutations in MDS is unclear (6). 5. STAG2 c.1840C>T, p.Vry840* ([id number]) VAF: 31.7% STAG2 encodes a subunit [...] unmutated cohesin genes (29). 6. BCOR c.3649C>T, p.Fby7807* ([id number]) VAF: 9.6% BCOR encodes a transcriptional corepressor that interacts with BCL-6 and histone deacetylases (HDACs) (5) (12). Mutations in BCOR are seen in 4% of patients with MDS (5) (11). BCOR mutations in MDS are often frameshift and nonsense mutations that result in bwvb-fn-rupsbzrv (5) (11). This mutation is predicted to alter the normal function of BCOR. BCOR mutations are associated with a higher incidence of AML transformation in MDS patients and shorter overall survival in MDS patients (5) (11) (16). 7. BCOR c.635_638del, p.Yxo573Aoizt*3 ([id number]) VAF: 6.2% This mutation is also predicted to alter the normal function of BCOR. TIER 2: Variants of Unknown Clinical Significance in Hematologic Malignancies 1. CEBPA c.1074_*9del, p.*359Cysext*58 (NM_[id number]) VAF: 4.7% CEBPA encodes a protein that is a member of the basic region leucine zipper family of licensed vocational nurse factors (18). Somatic mutations of CEBPA are [...] if any, is uncertain. 2. CUX1 c.3085G>A, p.Tvg3372Htv (NM_[id number]) VAF: 44.8% This variant has been rarely reported in hematologic malignancies (1) (10), to the best of our knowledge. References 1: Lynnette P, ??Emmanuelle B, ??Zhanna CLARK et al, Assessment of Minimal Residual Disease by Next Generation Sequencing in Peripheral Blood as a Complementary Tool for Personalized Transplant Monitoring in Myeloid Neoplasms. J Clin Med 2020. PMID:96875223 2: Virginie R, ??Juan KE, ??Ulises Kim et al, Somatic mutations predict poor outcome in patients with myelodysplastic syndrome after hematopoietic stem-cell transplantation. J Clin Oncol 2014. PMID:44062672 3: cBioPortal: http://www.cbioportal.org/ 4: COSMIC: https://cancer.vipin.ac.uk/cosmic 5: Braulio F, ??Yu V, ??Camilla Y et al, BCOR and BCORL1 mutations in myelodysplastic syndromes and related disorders. Blood 2013. PMID:72239405 6: Bill M, ??Jennifer C, ??Víctor Stroud et al, JAK2 Mutations Are Rare and Diverse in Myelodysplastic Syndromes: Case Series and Review of the Literature. Hematol Rep 2022. PMID:11004674 7: Jahaira GRAY, ??Kamla Estrada, ??Mary Mason et al, IDH1 and IDH2 mutations in myelodysplastic syndromes and role in disease progression. Leukemia 2016. PMID:45966545 8: Fried I, ??Day C, ??Lenin MURPHY et al, Frequency, onset and clinical impact of somatic DNMT3A mutations in therapy-related and secondary acute myeloid leukemia. Haematologica 2012. PMID:79188665 9: Nuha O, ??Idania Amador, ??Luanne Payne et al, CEBPA polymorphisms and mutations in patients with acute myeloid leukemia, myelodysplastic syndrome, multiple myeloma and non-Hodgkin's lymphoma. Blood Cells Mol Dis 2008. PMID:72265971 10: Cassandra Kim, ??Cornell Payne, ??Alexis Valdivia et al, DNA methylation epitypes highlight underlying developmental and disease pathways in acute myeloid leukemia. Genome Res 2020. PMID:59177638 11: Ivan V, ??Jenna E, ??Alondra DEMPSEY et al, Whole-exome sequencing identifies somatic mutations of BCOR in acute myeloid leukemia with normal karyotype. Blood 2011. PMID:[id number] 12: Lin RUEDA, ??Yashira W, ??Darcie Estrada et al, BCoR, a novel corepressor involved in BCL-6 repression. Genes Dev 2000. PMID:[id number] 13: Fabian SS, ??Jen SJ, ??Amandeep LR et al, Nolan/STAT pathways in cytokine signaling and myeloproliferative disorders: approaches for targeted therapies. Genes Cancer 2010. PMID:[id number] 14: Jose J Broussard, ??Charity Barcenas, ??Grayson Stroud et al, Mutations of IDH1 and IDH2 genes in early and accelerated phases of myelodysplastic syndromes and MDS/myeloproliferative neoplasms. Leukemia 2010. PMID:[id number] 15: Malaika M, ??Catherine Rubin, ??Ahsan Talavera et al, Molecular analysis of myelodysplastic syndrome with isolated deletion of the long arm of chromosome 5 reveals a specific spectrum of molecular mutations with prognostic impact: a study on 123 patients and 27 genes. Haematologica 2017. PMID:[id number] 16: Gregoria BAR, ??Meliton T, ??Valerie Payne et al, Spectrum and prognostic relevance of escort car driver gene mutations in acute myeloid leukemia. Blood 2016. PMID:[id number] 17: Nicol T, ??Mel MEANS, ??Milton Doss et al, Dominant-negative mutations of CEBPA, encoding CCAAT/enhancer binding protein-alpha (C/EBPalpha), in acute myeloid leukemia. Yusra Emely 2001. PMID:[id number] 18: Nicol T, Mel MEANS, Complexity of CEBPA dysregulation in human acute myeloid leukemia. Clin Cancer Res 2009. PMID:[id number] 19: Papvaldommaalhajil E, ??Scarung M, ??Hugh L et al, Clinical and biological implications of escort car driver mutations in myelodysplastic syndromes. Blood 2013. PMID:[id number] 20: Eileen MURPHY, ??Rajinder CHRISTY, ??Juju OTERO et al, Differential prognostic effect of IDH1 versus IDH2 mutations in myelodysplastic syndromes: a [facility] study of 277 patients. Leukemia 2012. PMID:[id number] 21: Eileen MURPHY, George TL, Genomics of myelodysplastic syndrome/myeloproliferative neoplasm overlap syndromes. Hematology Am Soc Hematol Educ Program 2020. PMID:[id number] 22: Preudhomme C, ??Sagot C, ??Heather N et al, Favorable prognostic significance of CEBPA mutations in patients with de elinor acute myeloid leukemia: a study from the Acute Leukemia [place] [employer] (JOSE). Blood 2002. PMID:[id number] 23: Bulmaro BENTON, Josse H, Isocitrate dehydrogenase 1 and 2 mutations in cancer: alterations at a crossroads of cellular metabolism. J Natl Cancer Inst 2010. PMID:[id number] 24: Jose Valdivia, ??Ivan V, ??Yudi U et al, [place] analysis of DNMT3A mutations in hematological malignancies. Leukemia 2013. PMID:[id number] 25: Kim AH, ??Lisa-Hussein O, ??Arnulfo REINOSO et al, The role of mutations in epigenetic regulators in myeloid malignancies. Yusra Rev Cancer 2012. PMID:[id number] 26: Taube F, ??Hubert ISSA, ??Efrem M et al, CEBPA mutations in 4708 patients with acute myeloid leukemia: differential impact of bZIP and TAD mutations on outcome. Blood 2021. PMID:[id number] 27: Thol F, ??Roverto EM, ??Sam J et al, IDH1 mutations in patients with myelodysplastic syndromes are associated with an unfavorable prognosis. Haematologica 2010. PMID:[id number] 28: Thol F, ??Lisa Rubin, ??Bro Valdivia et al, Rare occurrence of DNMT3A mutations in myelodysplastic syndromes. Haematologica 2011. PMID:[id number] 29: Josey S, ??Liam SAAB, ??Joan H et al, Genetic alterations of the cohesin complex genes in myeloid malignancies. Blood 2014. PMID:[id number] 30: Barrett MERRITT, ??Tono Stroud, ??Jossue Amador et al, Recurrent DNMT3A mutations in patients with myelodysplastic syndromes. Leukemia 2011. PMID:[id number] 31: Lawrence Camargo, Juan Diego Kim, Comparison and Implications of Mutational Profiles of Myelodysplastic Syndromes, Myeloproliferative Neoplasms, and Myelodysplastic/Myeloproliferative Neoplasms: A [place]-Analysis. Front Oncol 2020. PMID:[id number] 32: Cornell Flower, ??Sarabia F, ??Yuval Flower et al, IDH1 Mutation Is an Independent Inferior Prognostic Indicator for Patients with Myelodysplastic Syndromes. Acta Haematol 2017. PMID:[id number] 33: Packer L, Gabriella R, [place] MA, DNMT3A in haematological malignancies. Yusra Rev Cancer 2015. PMID:[id number] This result has been reviewed and approved by Jannette Dutta M.D. Low coverage regions: Listed below are regions where the average sequencing depth (number of times a particular nucleotide is sequenced) in at least 20% of the opvnav-nx-icbeqapo is less than our stringent cutoff of [...] NOTCH1; NPM1*; NRAS; NSD1; PHF6; PIGA; PPM1D; USCU04P; PRPF8; PTPN11; RAD21; RUNX1; SAMD9; SAMD9L; SETBP1; [...] developed and its performance characteristics determined by [facility]. It has not been cleared or approved by the U.S. Food and Drug Administration. This test was performed in a CLIA-certified laboratory and is intended for clinical purposes. Myeloid Malignancy Dx Mds Unspec 03/28/2024 2:06 PM [facility] ([facility]) Myeloid Malignancy Panel Specimen Bone Marrow 03/28/2024 2:06 PM [facility] ([facility]) EER Myeloid Malignancy See Note 03/28/2024 2:06 PM [facility] ([facility]) Comment: Authorized individuals can access the [facility] Enhanced Report using the following link: [email or web address] Performed By: [place] [address] Linen Room Custodian: Uche Morley MD, PhD CLIA Number: [id number] Other BONE MARROW SPECIMEN / Unknown Collection / Unknown 03/15/2024 9:05 AM [facility] 03/15/2024 9:30 AM [facility] Rodo Perez MD LAB - PATHOLOG Y/CYTOLOGY ORDERABLES Performing Organization Address City/[facility]/ZIP Co de Phone Number [facility]) [address] [place] [address] * LAB MISC TEST (NOT BLOOD) (03/15/2024 9:05 AM [facility]ER) Only the most recent of3 resultswithin the time period is included. Test Name Tp53 03/21/2024 12:06 PM [facility] REF LAB NON INTERF Test Result See Scanned Report 03/21/2024 12:06 PM [facility] REF [facility] NON INTERF Comment Ref Lab 03/21/2024 12:06 PM [facility] REF LAB NON INTERF Other BONE MARROW SPECIMEN / Unknown Collection / Unknown 03/15/2024 9:05 AM [facility]ER 03/15/2024 9:30 AM [facility] Rodo Perez MD LAB - BODY FLU ID ORDERABLES Performing Organization Address City/[facility]/ZIP Co de Phone Number [facility] REF LAB NON INTERF [address] [place] [address], [place] [phone] * FISH PML/DANTE PANEL (03/15/2024 9:05 AM [facility]ER) Only the most recent of2 resultswithin the time period is included. EER PML/DANTE Translocation by Fish See Note 03/17/2024 4:41 PM P[facility]ER [facility] ([facility]) Comment: Authorized individuals can access the [facility] Enhanced Report using the following link: [email or web address] Performed By: [facility] [address] [place] [id number] Linen Room Custodian: Uche Morley MD, PhD [place] Number: [id number] PML/DANTE Translocation by FISH See Note 03/17/2024 4:41 PM [facility]ER [facility] ([facility]) Comment: Test Performed: PML-DANTE Translocation by FISH [...] reviewed and approved by Nabila Gonzalez, PhD, FACMG A portion of this analysis was performed at the following location(s): [facility] Site CG-[place]#2 INTERPRETIVE INFORMATION: PML/DANTE Translocation by FISH This test was developed and its performance characteristics determined by [facility]. It has not been cleared or approved by the US Food and Drug Administration. This test was performed in a CLIA certified laboratory and is intended for clinical purposes. Other BONE MARROW SPECIMEN / Unknown Collection / Unknown 03/15/2024 9:05 AM [facility]ER 03/15/2024 9:30 AM [facility] Rodo Perez MD LAB - PATHOLOG Y/CYTOLOGY ORDERABLES [facility]) [address] [id number], [facility] * CHROMOSOME ANALYSIS BONE MARROW PANEL (03/15/2024 9:05 AM P[facility]ER) Chromosome Analysis Bone Marrow See Note Normal 03/22/2024 11:01 AM [facility] ([facility]) Comment: Test Performed: Chromosome Analysis Specimen Type: [...] study. NOTE: Concurrent FISH PML performed under [facility] accession [id number] was NORMAL. FISHAML and FISH MDS P are PENDING and will be reported under [facility] accessions [id number] and [id number]. This result has been reviewed and approved by Randall Yun, PhD, [facility] A portion of this analysis was performed at the following location(s): [facility]-[place]#2 [facility]-[place]#3 [facility]-[place]#4 [facility] Site [place]#1 INTERPRETIVE INFORMATION: Chromosome Analysis, Bone Marrow This test was developed and its performance characteristics determined by [facility]. It has not been cleared or approved by the US Food and Drug Administration. This test was performed in a CLIA certified laboratory and is intended for clinical purposes. EER Chromosome Analysis Bone Marrow See Note 03/22/2024 11:01 AM [facility] ([facility]) Comment: Authorized individuals can access the [facility] Report using the following link: [email or web address] Performed By: [facility] [employer] [address] [place] [address] Linen Room Custodian: Uche Morley MD, PhD [facility] Number: [id number] Bone marrow BONE MARROW SPECIMEN / Unknown 03/15/2024 9:05 AM [facility] 03/15/2024 9:30 AM [facility] Rodo Perez MD LAB - PATHOLOG Y/CYTOLOGY ORDERABLES [facility] ([facility]) [address] [place] [address], [facility] * FLOW CYTOMETRY BLOOD PROFILE (03/14/2024 10:32 AM [facility]) Case Report Flow Cytometry ?Case: [id number] ? Authorizing Provider: ??Ghanshyam Dewey PA-C ? Collected: ? 03/14/2024 10:32 AM ? Ordering Location: ? [facility] 7N ACUTE ? Received: ?03/14/2024 01:49 PM ? Pathologist: ? Angeles Rosado MD ? Specimen: ?Blood ? 03/14/2024 4:58 PM [facility] Final Diagnosis Peripheral blood, flow cytometric immunophenotypic analysis: - 1.2% myeloblasts detected - No evidence of a monoclonal B-cell population - See interpretation 03/14/2024 4:58 PM [facility] Flow Cytometry Results Differential Result Comment WBC Count /uL 1,200 Total Viability % 100.0 Lymphocytes % 80 Dim CD45 Region % 4 Monocytes % 4 Granulocytes % 13 03/14/2024 4:58 PM [facility] Flow Cytometry Interpretation Viability: 100% B-cells: polytypic, kappa:lambda ratio 1.1:1. Blasts: 1.2% of events are myeloblasts. Monocytes are mature. A peripheral blood smear prepared from the flow cytometry specimen has been reviewed for quality assurance supervisor trim purposes. 03/14/2024 4:58 PM [facility]U PATHOLOGY LAB Reason for test MDS (myelodysplastic syndrome) (HCC) 238.75 03/14/2024 4:58 PM [facility] Client Specimen ID # [id number] 03/14/2024 4:58 PM [facility] Pathologist Location at [facility] 03/14/2024 4:58 PM [facility] Disclaimer Test performed at [facility], [address] [place] [address], [address]. *The established laboratory minimum viability is 70%. [...] high complexity clinical testing. 03/14/2024 4:58 PM [facility] Embedded Images 4:58 PM [facility] Number of markers 19 were performed. A-2 Flow CD10 A-3 Flow CD13 A-5 Flow CD20 A-11 Flow CD2 A-13 Flow CD14 A-16 Flow CD117 A-17 Flow CD11b A-18 Flow CD11c A-1 Flow CD5 A-4 Flow CD19 A-6 Flow CD33 A-7 Flow CD34 A-8 Flow CD45 A-12 Flow CD7 A-14 Flow CD56 A-15 Flow CD64 A-9 Crabtree+CD19+ A-10 Lambda+CD19+ A-19 Flow HLA-DR 03/14/2024 4:58 PM [facility] Blood BLOOD SPECIMEN / Unknown Lab Venipuncture / Unknown 03/14/2024 10:32 AM [facility] 03/14/2024 1:49 PM [facility] Ghanshyam Dewey PA-C LAB - PATHOLOGY/CYTO LOGY ORDERABLES Performing Organization Address City/State/[facility] Co de Phone Number [facility] [address] [phone] * CYTOMEGALOVIRUS (CMV) QUANTITATIVE PLASMA (03/13/2024 11:26 PM [facility]) CMV Quant by PCR, Interp Not detected Not detected 03/14/2024 9:00 AM [facility] Blood BLOOD SPECIMEN / Unknown Venipuncture / Unknown 03/13/2024 11:26 PM [facility] 03/13/2024 11:37 PM [facility] Narrative [facility] - 03/14/2024 9:00 AM POT [facility]ULLER The Cytomegalovirus (CMV) DNA analysis utilized a [...] Soler MD LAB - CHEMISTRY OR DERABLES [facility] [address] [place] [address], [facility] [phone] * QUINN-TOVAR VIRUS QUANT BLOOD STL (03/13/2024 11:26 PM POT [facility]ER) Pathologist [facility] EBV Quant by PCR, Interp Not detected Not detected 03/14/2024 8:56 AM [facility] Specimen Type Plasma 03/14/2024 8:56 AM [facility] Blood BLOOD SPECIMEN / Unknown Venipuncture / Unknown 03/13/2024 11:26 PM P[facility]ER 03/13/2024 11:37 PM P[facility]ER Narrative [facility] - 03/14/2024 8:56 AM POT PULLER The Quinn-Tovar viral (EBV) DNA analysis utilized [...] Soler MD LAB - CHEMISTRY OR DERABLES [facility] [address] [place] [address], [facility] [phone] * D-DIMER (03/13/2024 11:26 PM POT [facility]ER) D-Dimer Quantitative <0.27 <=0.50 mcg/mL FEU 03/14/2024 12:00 AM [facility] Comment: In the absence of [...] Unknown Venipuncture / Unknown 03/13/2024 11:26 PM POT [facility]ER 03/13/2024 11:37 PM POT P[facility]ER Ted Soler MD LAB - COAGULATION ORDERABLES [address] [address], [facility] [phone] * FIBRINOGEN ACTIVITY (03/13/2024 11:26 PM POT P[facility]ER) Fibrinogen Clauss 362 200 - 400 mg/dL 03/13/2024 11:59 PM [facility] Blood BLOOD SPECIMEN / Unknown Venipuncture / Unknown 03/13/2024 11:26 PM POT P[facility]ER 03/13/2024 11:37 PM P[facility] P[facility]ER Ted Soler MD LAB - COAGULATION ORDERABLES Performing Organization Address City/[facility]/ZIP Co de Phone Number [address] [address], [facility] [phone] * FISH AML+MDS PANEL BLOOD OR BONE MARROW (03/04/2024 4:13 PM POT PULLER) Pathologist [facility] FISH AML with MDS, Therapy-Rltd AML See Note Normal 03/19/2024 4:32 PM POT PULLER [facility] ([facility]) Comment: Test Performed: Acute Myelogenous Leukemia (AML) [...] with the Therapy-Related AML panel probes D5S23/EGR1, D7Z1/O2P891, and MLL (KMT2A) (CytoCell). A total of 200 cells were scored for each probe. Cytogenomic Nomenclature (ISCN): nuc nereyda(D5S23,EGR1,D7Z1,U6D841,KMT2A)x2[200' This result has been reviewed and approved by Charles Pablo MD, [facility] INTERPRETIVE INFORMATION: AML with MDS, Therapy-Related AML, FISH This test was developed and its performance characteristics determined by [facility]. It has not been cleared or approved by the US Food and Drug Administration. This test was performed in a CLIA certified laboratory and is intended for clinical purposes. EER AML with MDS, Therapy-Rltd AML FISH See Note 03/19/2024 4:32 PM POT PULLER [facility] ([facility]) Comment: Authorized individuals can access the [facility] Enhanced Report using the following link: [email or web address] Performed By: [facility] [address] [place] [address] Linen Room Custodian: Uche Morley MD, PhD CLIA Number: [id number] Other BLOOD SPECIMEN / Unknown Collection / Unknown 03/04/2024 4:13 PM P[facility]ER 03/04/2024 4:23 PM P[facility]ER Cindy Garcia MD LAB - PATHOLOGY/CYTO LOGY ORDERABLES [facility]) [address] * CHROMOSOME ANALYSIS LEUKEMIA BLD (03/04/2024 4:13 PM POT [facility]ER) Chromosome Analysis Leukemic Blood See Note Normal 03/23/2024 12:39 PM POT [facility]ER [facility] ([facility]) Comment: Test Performed: Chromosome Analysis Specimen Type: [...] FISH AML/PML and TAML MDS performed under [facility] accessions [id number] and [id number] were NORMAL. This result has been reviewed and approved by Margaret Roberson, PhD, [facility] INTERPRETIVE INFORMATION: Chromosome Analysis, ?Leukemic Blood This test was developed and its performance characteristics determined by [facility]. It has not been cleared or approved by the US Food and Drug Administration. This test was performed in a CLIA certified laboratory and is intended for clinical purposes. EER Chromosome Analysis Leukemic See Note 03/23/2024 12:39 PM POT P[facility]ER [facility] ([facility]) Comment: Authorized individuals can access the [facility] Enhanced Report using the following link: [email or web address] Performed By: [facility] [address] [place] [address] Linen Room Custodian: Uche Morley MD, PhD CLIA Number: [id number] Blood BLOOD SPECIMEN / Unknown Lab Venipuncture / Unknown 03/04/2024 4:13 PM P[facility]ER 03/22/2024 5:28 PM [facility] Cindy Garcia MD LAB - PATHOLOGY/CYTO LOGY ORDERABLES Performing Organization Address [facility]/ZIP Co de Phone Number [facility] ([facility]) [address] [place], [place] [address] * HIV-1 HIV-2 ANTIBODY + HIV P24 AG PANEL (New on 08/24) (03/04/2024 4:13 PM POT PULLER) [facility] HIV Antigen/Antibod y 1 & 2 Non-reacti ve Non-react carlos 03/04/2024 5:12 PM [facility] Comment:No Laboratory eviden ce of HIV infection. Blood BLOOD SPECIMEN / Unknown Lab Venipuncture / Unknown 03/04/2024 4:13 PM P[facility]ER 03/04/2024 4:23 PM [facility]ER Cindy Garcia MD LAB - CHEMISTRY ORDE RABNIC Performing Organization Address [facility] Co de Phone Number [facility] [address] [address], [facility] [phone] * BCR-ABL1 CML+AML PCR QUANT PNL (03/04/2024 4:13 PM POT PULLER) Pathologist [facility] Interpretation TNP 03/13/2024 5:08 PM [facility] ([facility]) Comment: Unable to obtain results. Repeated efforts to analyze this specimen have been unsuccessful. LOW CONTROL GENE COPY NUMBER INDICATED SPECIMEN DEGRADATION. Director Review Comment 5:08 PM P[facility]ER [facility] ([facility]) Comment: Dawood Sarabia, PhD, [facility] ?Director, Molecular Oncology ?[facility] ?[place] [address] ? Background Comment 03/13/2024 5:08 PM [facility] ([facility]) Comment: This assay can detect three different [...] as indicated. Methodology Comment 03/13/2024 5:08 PM [facility] ([facility]) Comment: Total RNA is isolated from the [...] developed and its performance characteristics determined by [facility]. It has not been cleared or approved by the Food and Drug Administration. Blood BLOOD SPECIMEN / Unknown Lab Venipuncture / Unknown 03/04/2024 4:13 PM POT PULLER 03/04/2024 4:24 PM P[facility]ER Narrative [facility] ([facility]) - 03/13/2024 5:08 PM POT PULLER Performed at: ??01 - [facility] [address] [place], [place] ??[id number] Assembly Inspector Helper: Cinthya Roper [facility], Phone: ??[phone] Performed at: ??02 - [facility] [address] [place] [place] ??[id number] Assembly Inspector Helper: Cinthya Roper [facility], Phone: ??[phone] Cindy Garcia MD LAB - CHEMISTRY [facility] ([facility]) [address] [place] [address] * TSH REFLEX FREE T4 (03/04/2024 4:13 PM POT PULLER) Pathologist [facility] TSH 0.961 0.350 - 4.940 uIU/mL 03/04/2024 5:29 PM [facility] Blood BLOOD SPECIMEN / Unknown Lab Venipuncture / Unknown 03/04/2024 4:13 PM POT P[facility]ER 03/04/2024 4:27 PM P[facility]ER Cindy Garcia MD LAB - CHEMISTRY CHELI MONREAL [address] [address], [facility] [phone] * RHEUMATOID FACTOR BLOOD QUANTITATIVE (03/04/2024 4:13 PM POT PULLER) [facility] Rheumatoid Factor <15 <30 IU/mL 03/04/2024 4:57 PM P[facility]ER [facility] Rheumatoid Factor Screen Negative Negative 03/04/2024 4:57 PM POT [facility]ER [facility] Blood BLOOD SPECIMEN / Unknown Lab Venipuncture / Unknown 03/04/2024 4:13 PM POT PULLER 03/04/2024 4:23 PM POT [facility]ER Cindy Garcia MD LAB - CHEMISTRY CHELI MONREAL [address] [address], [place] [phone] * CYTOMEGALOVIRUS ANTIBODY IGG BLOOD (03/04/2024 4:13 PM POT PULLER) [facility] Cytomegalovirus Antibody IgG <0.20 <=0.70 U/mL 03/05/2024 9:27 PM P[facility]ER [facility] ([facility]) Comment: INTERPRETIVE INFORMATION: Cytomegalovirus Antibody, IgG ??0.59 [...] laboratory at the same time. Performed By: [place] [address] Linen Room Custodian: Uche Morley MD, PhD CLIA Number: [id number] Blood BLOOD SPECIMEN / Unknown Lab Venipuncture / Unknown 03/04/2024 4:13 PM POT PULLER 03/04/2024 4:23 PM POT [facility]ER Cindy Garcia MD LAB - CHEMISTRY CHELI MONREAL [facility] ([facility]) [address] [place] [address] * C-REACTIVE PROTEIN (03/04/2024 4:13 PM POT PULLER) C-Reactive Protein 0.5 <=0.5 mg/dL 03/04/2024 4:56 PM P[facility]ER [facility] Blood BLOOD SPECIMEN / Unknown Lab Venipuncture / Unknown 03/04/2024 4:13 PM POT PULLER 03/04/2024 4:27 PM POT PULLER Cindy Garcia MD LAB - CHEMISTRY CHELI MONREAL [address] [address] [phone] * MARLINE BLOOD SCREEN W/REFLEX TITER (03/04/2024 4:13 PM POT PULLER) MARLINE IgG None Detected None Detected 03/05/2024 11:42 PM POT PULLER [facility] ([facility]) Comment: If suspicion of connective tissue disease is strong and MARLINE EIA is negative, consider testing for MARLINE by IFA ([id number]). INTERPRETIVE INFORMATION: Anti-Nuclear Antibodies (MARLINE), IgG by TOÑA Antinuclear Antibodies (MARLINE), IgG by TOÑA: MARLINE specimens are screened using enzyme-linked immunosorbent assay (TOÑA) methodology. All TOÑA results reported as Detected are further tested by indirect fluorescent assay (IFA) using HEp-2 substrate with an IgG-specific conjugate. The MARLINE TOÑA screen is designed to detect antibodies against dsDNA, histones, SS-A (Ro), SS-B (La), Pimentel, Pimentel/WE[employer] MECH[employer]IC, Scl-70, Mey-1, centromeric proteins, other antigens extracted from the HEp-2 cell nucleus. MARLINE TOÑA assays have been reported to have lower sensitivities than MARLINE IFA for systemic autoimmune rheumatic diseases (SARD). Negative results do not necessarily rule out SARD. Performed By: [facility] [address] [place] [address] Linen Room Custodian: Uche Morley MD, PhD CLIA Number: [id number] Blood BLOOD SPECIMEN / Unknown Lab Venipuncture / Unknown 03/04/2024 4:13 PM POT PULLER 03/04/2024 4:23 PM POT PULLER Cindy Garcia MD LAB - CHEMISTRY CHELI MONREAL [facility] Organization Address City/State/ZIP Co de Phone Number [facility] [employer] [facility]) [address] * ZINC BLOOD (03/04/2024 4:13 PM POT PULLER) Pathologist [facility] Zinc 62.4 60.0 - 120.0 ug/dL 03/06/2024 6:35 AM POT PULLER [facility] [employer] ([facility]) Comment: INTERPRETIVE INFORMATION: Zinc, Serum or Plasma [...] developed and its performance characteristics determined by [employer]. It has not been cleared or approved by the [place] Food and Drug Administration. This test was performed in a CLIA certified laboratory and is intended for clinical purposes. Performed By: [facility] [employer] [address] [place] [address] Linen Room Custodian: Uche Morley MD, PhD CLIA Number: [id number] Blood BLOOD SPECIMEN / Unknown Lab Venipuncture / Unknown 03/04/2024 4:13 PM POT PULLER 03/04/2024 4:23 PM POT PULLER Cindy Garcia MD LAB - CHEMISTRY CHELI MONREAL [facility] Organization Address City/State/ZIP Co de Phone Number [facility]) [address] [place] [address] * COPPER BLOOD (03/04/2024 4:13 PM POT PULLER) [facility] Copper 108.5 70.0 - 140.0 ug/dL 03/06/2024 6:35 AM POT PULLER [facility] ([facility]) Comment: INTERPRETIVE INFORMATION: Copper, Serum or Plasma [...] developed and its performance characteristics determined by [employer]. It has not been cleared or approved by the US Food and Drug Administration. This test was performed in a CLIA certified laboratory and is intended for clinical purposes. Performed By: [employer] [address] [place] [address] Linen Room Custodian: Uche Morley MD, PhD CLIA Number: [id number] Blood BLOOD SPECIMEN / Unknown Lab Venipuncture / Unknown 03/04/2024 4:13 PM POT PULLER 03/04/2024 4:23 PM POT PULLER Cindy Garcia MD LAB - CHEMISTRY ORDNatalie MONREAL [facility]) [address] [place] [address], [facility] * ERYTHROCYTE SEDIMENTATION RATE (03/04/2024 4:13 PM POT PULLER) Erythrocyte Sedimentation Rate Westergren 14 0 - 20 MM/HR 03/04/2024 5:10 PM POT PULLER [facility] Blood BLOOD SPECIMEN / Unknown Lab Venipuncture / Unknown 03/04/2024 4:13 PM POT PULLER 03/04/2024 4:27 PM POT PULLER Cindy Garcia MD LAB - HEMATOLOGY ORD HEMALATHA [facility] [address] [place] [address], [facility] [phone] * HEPATITIS B SURFACE ANTIBODY (03/04/2024 4:13 PM POT PULLER) Pathologist [facility] Hepatitis B Virus Surface Antibody Non-react carlos Non-react carlos 03/04/2024 5:12 PM POT PULLER [facility] Comment: < 8 mIU/mL Hepatitis B surface Antibody (HBsAb). Nonreactive for HBsAb - individual is considered not immune to Hepatitis B Virus infection. Hepatitis B Surface Antibody Quantitative 0.3 <8.0 mIU/mL 03/04/2024 5:12 PM POT PULLER [facility] Comment: Hepatitis B Surface Antibody Numeric Result Interpretation: ? Nonreactive: ?<8.0 mIU/mL ? Indeterminate: ??8.0 - 12.0 mIU/mL ? Reactive: ?>12.0 mIU/mL ? Blood BLOOD SPECIMEN / Unknown Lab Venipuncture / Unknown 03/04/2024 4:13 PM POT PULLER 03/04/2024 4:23 PM POT PULLER Cindy Garcia MD LAB - CHEMISTRY CHELI MONREAL [address] [address], [place] [phone] * HEPATITIS B CORE ANTIBODY TOTAL (03/04/2024 4:13 PM POT PULLER) HBc Antibody Total Non-reacti ve Non-reacti ve 03/04/2024 5:12 PM POT PULLER [facility] Blood BLOOD SPECIMEN / Unknown Lab Venipuncture / Unknown 03/04/2024 4:13 PM POT PULLER 03/04/2024 4:23 PM POT PULLER Cindy Garcia MD LAB - CHEMISTRY CHELI MONREAL [address] [address], [place] [phone] * FOLATE (03/04/2024 4:13 PM POT PULLER) Pathologist [facility] Folate 17.7 7.0 - 31.4 ng/mL 03/04/2024 5:29 PM POT PULLER [facility] Blood BLOOD SPECIMEN / Unknown Lab Venipuncture / Unknown 03/04/2024 4:13 PM POT PULLER 03/04/2024 4:27 PM POT PULLER Cindy Garcia MD LAB - CHEMISTRY CHELI MONREAL Performing Organization Address City/[facility]/ZIP Co de Phone Number [address] [address], [place] [phone] * VITAMIN B12 (03/04/2024 4:13 PM POT PULLER) Vitamin B12 524 213 - 816 pg/mL 03/04/2024 5:29 PM POT PULLER [facility] Blood BLOOD SPECIMEN / Unknown Lab Venipuncture / Unknown 03/04/2024 4:13 PM POT PULLER 03/04/2024 4:27 PM POT PULLER Cindy Garcia MD LAB - CHEMISTRY CHELI MONREAL [facility] [address] [place] [address], [place] [phone] * (ABNORMAL) IRON + TRANSFERRIN PANEL [w/Transferrin Sat % + TIBC] (03/04/2024 4:13 PM POT PULLER) Pathologist [facility] Iron 31(L) 50 - 175 ug/dL 03/04/2024 4:53 PM POT PULLER [facility] Transferrin 257 174 - 382 mg/dL 03/04/2024 4:53 PM POT PULLER [facility] Transferrin Saturation % 10(L) 16 - 50 % 03/04/2024 4:53 PM POT PULLER [facility] TIBC Calculated 321 240 - 450 ug/dL 03/04/2024 4:53 PM POT PULLER [facility] Blood BLOOD SPECIMEN / Unknown Lab Venipuncture / Unknown 03/04/2024 4:13 PM POT PULLER 03/04/2024 4:23 PM POT PULLER Cindy Garcia MD LAB - CHEMISTRY CHELI MONREAL [facility] [address] [place] [address], [place] [phone] * HEPATITIS C ANTIBODY (03/04/2024 4:13 PM POT PULLER) Pathologist [facility] Hepatitis C Antibody Non-react carlos Non-reac tive 03/04/2024 5:12 PM POT PULLER [facility] Comment:Hepatitis C Antibody screen indicates no serologic evidence of past or current infection with Hepatitis C Virus. Patients with unexplained liver disease who are immunocompromised or suspected of having acute Hepatitis C infection may benefit from Nucleic Acid Test (YUSRA) for Hepatitis C Viral RNA to confirm Hepatitis C status. Blood BLOOD SPECIMEN / Unknown Lab Venipuncture / Unknown 03/04/2024 4:13 PM POT PULLER 03/04/2024 4:23 PM POT PULLER Cindy Garcia MD LAB - CHEMISTRY CHLEI MONREAL [facility] [address] [place] [address], [place] [phone] * (ABNORMAL) FERRITIN (03/04/2024 4:13 PM POT PULLER) Ferritin 21(L) 22 - 275 ng/mL 03/04/2024 5:12 PM POT PULLER [facility] Blood BLOOD SPECIMEN / Unknown Lab Venipuncture / Unknown 03/04/2024 4:13 PM POT PULLER 03/04/2024 4:23 PM POT PULLER Cindy Garcia MD LAB - CHEMISTRY CHELI MONREAL [facility] [address] [place] [address], [place] [phone] from Last 3 Months Advance Directives * Full Code (Latest Code Status on File) Date Activated Date Inactivated Comments 03/13/2024 9:41 PM 03/23/2024 2:56 PM Care Teams Home Therapy Clinician Relationship Specialty Start Date End Date Timothy Banks MD [address] [place] [address] PCP - General 10/19/18 Cindy Garcia MD [address] [place] [address] Waist Fitter/Oncologis t Hematology and Oncology 03/24/24
--- OUTSIDE RECORDS SUMMARY | 2024-04-09 17:25 | XMS_ITS ---
Author Organization 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 MDS (myelodysplastic syndrome) 03/13/2024 Current Oncology Plans AML (DECITABINE VENETOCLAX) Q28 DAYS* Plan Start Date:03/18/2024 Plan Provider:Cindy Garcia MD Linked Problems Acute myeloid leuk w multili n dysplasia, 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) Treatment Medications Current Day (Day 1 , Cycle 2 - Planned for 04/16/2024) Next Day (Day 2, Cycle 2 - Planned for 04/17/2024) decitabine (Dacogen) infusionvenetoclax (Venclexta) decitabine (Dacogen) 45 mg in 0.9% NaCl IV 109 mL infusion decitabine (Dacogen) 45 mg in 0.9% NaCl IV 109 mL infusion Past Plans ONCOLOGY TREATMENT Plan Name Start Date Discontinue Date Treatment Medications Discontinue Reason Plan Provider Cycles AML (AZACIT IDINE VENETOC LAX) Q28 DAYS INTRA VENOUS* * 03/19/20 24 03/19/2024 azaCITIDine (Vidaza) Infusionvenetoclax (Venclexta) Physician Preference Cindy Garcia MD 1 of 6 cycles started Radiation Treatments * No radiation treatments are documented for this patient in [facility]. Treatments may have been administered in another system.
--- OUTSIDE RECORDS SUMMARY | 2024-04-09 17:25 | XMS_ITS | Encounter Summary ---
Author Organization [facility] Address [address] [facility] [place] [address] Care Team Providers Care Senior Sas Developer Name Role Phone Timothy Banks MD Primary Care Provider [phone] Cindy Garcia MD Unavailable Encounter Details Date Type Department Care Team (Latest Contact Info) Description 04/01/2024 Travel Social History Tobacco Use Types Packs/Day Years Used Date Smoking Tobacco: Never Passive Smoke Exposure: Never Smokeless Tobacco: Never AUDIT-C Answer Date Recorded Q1: How often [...] and heating? Not hard at all 03/13/2024 [facility] [place] of Occupat ional Health - Occupational Stress [...] time in the past 12 m [facility], were you homeless or living in a correction (including now)? No 03/13/2024 Sex and Gender Information Value Date Recorded Sex Assigned at Male 03/05/2024 8:04 AM ELECTRICAL ASSISTANT Gender Identity Male 03/05/2024 8:04 AM ELECTRICAL ASSISTANT Sexual Orientation Straight 03/05/2024 8: 04 AM ELECTRICAL ASSISTANT documented as of this encounter Functional Status Functional Status Response Date of [...] person have difficulty concentrating/remembering/making decisions? No 03/13/2024 documented as of this encounter Plan of Treatment Upcoming Encounters Date Type Department Care Team (Late st Contact Info) Description 04/11/2024 8:00 AM ELECTRICAL ASSISTANT Hospital Encounter [facility] [address] [place] [address] Cindy Garcia MD [address] [place], [place] [phone] 04/15/2024 8:30 AM ELECTRICAL ASSISTANT Hospital Encounter [facility] [address] [place] [address] 04/16/2024 9:00 AM ELECTRICAL ASSISTANT Hospital Encounter [facility] [address] [place] [address] 04/17/2024 8:30 AM ELECTRICAL ASSISTANT Appointment [facility] [address] [place] [address] 04/18/2024 9:30 AM ELECTRICAL ASSISTANT Appointment [facility] [address] [place] [address] 04/18/2024 10:30 AM ELECTRICAL ASSISTANT Office Visit [facility] - Hematology/Oncology [address] [place] [address] Cinyd Garcia MD [address] [place] [address] 04/19/2024 9:00 AM ELECTRICAL ASSISTANT Appointment [facility] [address] [place] [address] 05/13/2024 9:00 AM ELECTRICAL ASSISTANT Appointment [facility] [address] [place] [address] documented as of this encounter Visit Diagnoses Not on filedocumented in this encounter Care Teams Senior Sas Developer Relationship Specialty Start Date End Date Timothy Banks MD [address] [place] [address] PCP - General 10/19/18 Cindy Garcia MD [address] [place] [address] Escrow Manager/Oncologis t Hematology and Oncology 03/24/24 documented as of this encounter
--- OUTSIDE RECORDS SUMMARY | 2024-04-09 17:25 | XMS_ITS | Encounter Summary ---
Author Organization [facility] Address [address] [place] [address] Care Team Providers Care Respiratory Care Practitioner Name Role Phone Timothy Banks MD Primary Care Provider [phone] Cindy Garcia MD Unavailable Encounter Details Date Type Department Care Team (Late st Contact Info) Description 04/01/2024 Orders Only [facility] [address] [place] [address] Cindy Garcia MD [address] [place], [place] [id number] Tumor lysis syndrome (HCC) Social History Tobacco Use Types Packs/Day Years [...] and heating? Not hard at all 03/13/2024 [facility] [place] of Occupat ional Health - Occupational Stress [...] any time in the past 12 m [facility], were you homeless or living in a alf (including now)? No 03/13/2024 Sex and Gender Information Value Date Recorded Sex Assigned at Male 03/05/2024 8:04 AM ETHYLBENZENE CONVERTER OPERATOR Gender Identity Male 03/05/2024 8:04 AM ETHYLBENZENE CONVERTER OPERATOR Sexual Orientation Straight 03/05/2024 8: 04 AM ETHYLBENZENE CONVERTER OPERATOR documented as of this encounter Functional Status [...] st Contact Info) Description 04/11/2024 8:00 AM ETHYLBENZENE CONVERTER OPERATOR Hospital Encounter [facility] [address] [place] [address] Cindy Garcia MD [address] [place] [address] 04/15/2024 8:30 AM ETHYLBENZENE CONVERTER OPERATOR Hospital Encounter [facility] [address] [place] [address] 04/16/2024 9:00 AM ETHYLBENZENE CONVERTER OPERATOR Hospital Encounter [facility] [address] [place] [address] 04/17/2024 8:30 AM ETHYLBENZENE CONVERTER OPERATOR Appointment [facility] [address] [place] [address] 04/18/2024 9:30 AM ETHYLBENZENE CONVERTER OPERATOR Appointment [facility] [address] [place] [address] 04/18/2024 10:30 AM ETHYLBENZENE CONVERTER OPERATOR Office Visit [facility] - Hematology/Oncology [address] [place] [phone] Cindy Garcia MD [address] [place] [address] 04/19/2024 9:00 AM ETHYLBENZENE CONVERTER OPERATOR Appointment [facility] [address] [place] [address] 05/13/2024 9:00 AM ETHYLBENZENE CONVERTER OPERATOR Appointment [facility] [address] [place] [address] Scheduled Orders Name Type Priority Associated Diagnoses Orde r Schedule [facility] BLOOD Lab Routine Tumor lysis syndrome (HCC) 1 Occurrences starting 04/01/2024 until 04/26/2025 documented as of this encounter Results * PHOSPHORUS BLOOD (04/01/2024 3:12 PM ETHYLBENZENE CONVERTER OPERATOR) Phosphorus 2.9 2.8 - 5.1 mg/dL 04/01/2024 5:52 PM ETHYLBENZENE CONVERTER OPERATOR [facility] Blood BLOOD SPECIMEN / Unknown Lab Venipuncture / Unknown 04/01/2024 3:12 PM ETHYLBENZENE CONVERTER OPERATOR 04/01/2024 5:30 PM ETHYLBENZENE CONVERTER OPERATOR Cindy Garcia MD LAB - CHEMISTRY ORDE RABLES [facility] [address] [place] [address], [place] [phone] * URIC ACID BLOOD (04/01/2024 3:12 PM ETHYLBENZENE CONVERTER OPERATOR) Uric Acid 4.0 3.5 - 7.2 mg/dL 04/01/2024 5:52 PM ETHYLBENZENE CONVERTER OPERATOR [facility] Blood BLOOD SPECIMEN / Unknown Lab Venipuncture / Unknown 04/01/2024 3:12 PM ETHYLBENZENE CONVERTER OPERATOR 04/01/2024 5:30 PM ETHYLBENZENE CONVERTER OPERATOR Cindy Garcia MD LAB - CHEMISTRY CHELI MONREAL Performing Organization Address City/[facility]/ZIP Co de Phone Number [facility] [address] [place] [address], [place] [phone] documented in this encounter Visit Diagnoses Diagnosis Tumor lysis syndrome (HCC)- Primary Tumor lysis syndrome documented in this encounter Care Teams Respiratory Care Practitioner Relationship Specialty Start Date End Date Timothy Banks MD [address] [place] [phone] PCP - General 10/19/18 Cindy Garcia MD [address] [place] [address] Eyelet Machine Operator/Oncologis t Hematology and Oncology 03/24/24 documented as of this encounter
--- OUTSIDE RECORDS SUMMARY | 2024-04-09 17:26 | XMS_ITS | Encounter Summary ---
Author Organization [facility] Address [address] [place] [address] Care Team Providers Care Digital Court Reporter Name Role Phone Timothy Banks MD Primary Care Provider [phone] Reason for Visit * Reason Onset Date Comments Medication Prior Auth Request 03/14/2024 Encounter Details Date Type Department Care Team (Late st Contact Info) Description 03/14/2024 Telephone [facility] - Hematology/Oncology [address] [place] [address] Cindy Garcia MD [address] [place] [address] Medication Prior Auth Request Social History Tobacco Use Types Packs/Day Years [...] and heating? Not hard at all 03/13/2024 [facility] [place] of Occupat ional Health - Occupational Stress [...] any time in the past [facility], were you homeless or living in a half-way (including now)? No 03/13/2024 Sex and Gender Information Value Date Recorded Sex Assigned at Male 03/05/2024 8:04 AM CUTTER OUT Gender Identity Male 03/05/2024 8:04 AM CUTTER OUT Sexual Orientation Straight 03/05/2024 8: 04 AM CUTTER OUT documented as of this encounter Functional Status [...] No 03/13/2024 documented as of this encounter Miscellaneous Notes * Telephone Encounter - Ryan Bolden CPhT - 03/14/2024 8:47 AM CST Medication Prior Authorization Medication: VENCLEXTA Status: Submitted - Pending Submitted via: Cover My Meds (Dawson:[id number]) Insurance: [employer]I Helpdesk: [phone] ER OUT documented in this encounter Plan of Treatment Upcoming Encounters Date Type Department Care Team (Late st Contact Info) Description 04/11/2024 8:00 AM CUTTER OUT Hospital Encounter [facility] [address] [place] [address] Cindy Garcia MD [address] [place] [address] 04/15/2024 8:30 AM CUTTER OUT Hospital Encounter [facility] [address] [place] [address] 04/16/2024 9:00 AM CUTTER OUT Hospital Encounter [facility] [address] [place] [address] 04/17/2024 8:30 AM CUTTER OUT Appointment [facility] [address] [place] [address] 04/18/2024 9:30 AM CUTTER OUT Appointment [facility] [address] [place] [address] 04/18/2024 10:30 AM CUTTER OUT Office Visit [facility] - Hematology/Oncology [address] [place] [phone] Cindy Garcia MD [address] [place] [address] 04/19/2024 9:00 AM CUTTER OUT Appointment [facility] [address] [place] [address] 05/13/2024 9:00 AM CUTTER OUT Appointment [facility] [address] [place] [address] documented as of this encounter Visit Diagnoses Not on filedocumented in this encounter Care Teams Digital Court Reporter Relationship Specialty Start Date End Date Timothy Banks MD [address] [place] [address] PCP - General 10/19/18 documented as of this encounter
--- OUTSIDE RECORDS SUMMARY | 2024-04-09 17:26 | XMS_ITS | Encounter Summary ---
Author Organization [facility] Health Address [address] [place] [address] Care Team Providers Care Supervisor [place] Room Name Role Phone Timothy Banks MD Primary Care Provider [phone] Cindy Garcia MD Unavailable Encounter Details Date Type Department Care Team (Latest Contact Info) Description 04/01/2024 3:09 PM ROLL ICER - 04/01/2024 11:59 PM [facility] Hospital Encounter [facility] [address], [address] [place] [address] Discharge Disposition: Home or Self Care Social History Tobacco Use Types Packs/Day Years [...] and heating? Not hard at all 03/13/2024 [facility] [place] of Occupat ional Health - Occupational Stress [...] any time in the past 12 m [facility], were you homeless or living in a m[facility] (including now)? No 03/13/2024 Sex and Gender Information Value Date Recorded Sex Assigned at Male 03/05/2024 8:04 AM ROLL ICER Gender Identity Male 03/05/2024 8:04 AM ROLL ICER Sexual Orientation Straight 03/05/2024 8: 04 AM ROLL ICER documented as of this encounter Functional Status [...] No 03/13/2024 documented as of this encounter Medications at Time of Discharge Medication Sig Dispensed Refills Start Date End Date acetaminophen (Tylenol) 325 MG tablet Take 2 (two) tablets by mouth every 4 hours as needed Maximum allowable Acetaminophen amount = 4 Grams (4000 mg) / 24 hours. 03/23/2024 allopurinol (Zyloprim) 300 MG tablet Take 1 (one) tablet by mouth once daily after breakfast 30 tablet 03/23/2024 apixaban (Eliquis) 2.5 MG tablet Take 1 (one) tablet by mouth 2 times daily 60 tablet 03/23/2024 budesonide-formotero l (Symbicort) 160-4.5 MCG/ACT inhaler Inhale 2 (two) puffs by mouth as needed (has not used in 3 weeks) dilTIAZem (Cardizem) 120 MG tablet Take 1 (one) tablet by mouth once daily ferrous sulfate 325 (65 FE) MG tablet Take 1 (one) tablet by mouth every 2 days 30 tablet 03/23/2024 folic acid 400 MCG tablet Take 1 (one) tablet by mouth once daily lansoprazole (Prevacid) 30 MG capsule Take 1 (one) capsule by mouth daily before breakfast levoFLOXacin (Levaquin) 500 MG tablet Take 1 (one) tablet by mouth every 24 hours 30 tablet 03/23/2024 ondansetron, disintegrating, (Zofran ODT) 8 MG tabletIndications:Ac luciana myeloid leuk w multilin dysplasia, 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) Take 1 (one) tablet by mouth 2 times daily as needed for Nausea/Vomiting Allow tablet to dissolve on the tongue 30 tablet 03/23/2024 polyethylene glycol 3350 (Miralax) 17 g packet Take 17 (seventeen) g by mouth once daily as needed for Constipation 03/23/2024 posaconazole (Noxafil) 100 MG tablet Take 3 (three) tablets by mouth daily with dinner for 90 days 90 tablet 2 03/13/2024 06/11/2024 senna (Senokot Extra Strength) 17.2 MG Take 17.2 mg by mouth once daily as needed for Constipation 03/23/2024 valACYclovir (Valtrex) 500 MG tablet Take 1 (one) tablet by mouth 2 times daily 60 tablet 03/23/2024 vitamin D3 (Cholecalciferol) 10 MCG (400 UNIT) tablet Take 1 (one) capsule by mouth once daily venetoclax (Venclexta) 100 MG tabletIndications:Ac luciana Myelocytic Leukemia Take 1 (one) tablet by mouth daily with food Reasons: Acute Myelocytic Leukemia 28 tablet 11 03/13/2024 04/05/2024 documented as of this encounter Plan of Treatment Upcoming Encounters Date Type Department Care Team (Tayler rothman Contact Info) Description 04/11/2024 8:00 AM ROLL ICER Hospital Encounter [facility] [address] [place] [address] Cindy Garcia MD [address] [place] [address] 04/15/2024 8:30 AM ROLL ICER Hospital Encounter [facility] [address] [place] [phone] 04/16/2024 9:00 AM ROLL ICER Hospital Encounter [facility] [address] [place] [address] 04/17/2024 8:30 AM ROLL ICER Appointment [facility] [address] [place] [address] 04/18/2024 9:30 AM ROLL ICER Appointment [facility] [address] [place] [address] 04/18/2024 10:30 AM ROLL ICER Office Visit [facility] - Hematology/Oncology [address] [place] [phone] Cindy Garcia MD [address] [place] [address] 04/19/2024 9:00 AM ROLL ICER Appointment [facility] [address] [place] [address] 05/13/2024 9:00 AM ROLL ICER Appointment [facility] [address] [place] [phone] documented as of this encounter Procedures Procedure Name Priority Date/Time Associated Diagnosis Comments URIC ACID BLOOD Routine 04/01/2024 3:12 PM ROLL ICER Tumor lysis syndrome (HCC) ERYTHROPOIETIN Routine 04/01/2024 3:12 PM ROLL ICER 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) SOLUBLE TRANSFERRIN RECEPTOR Routine 04/01/2024 3:12 PM ROLL ICER 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) DIFFERENTIAL MANUAL Routine 04/01/2024 3 :12 PM ROLL ICER 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) CBC W AUTO DIFFERENTIAL Routine 04/01/20 3:12 PM ROLL ICER 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) COMPREHENSIVE METABOLIC PANEL Routine 04/01/2024 3:12 PM ROLL ICER 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) PHOSPHORUS BLOOD Routine 04/01/2024 3:12 PM ROLL ICER Tumor lysis syndrome (HCC) MAGNESIUM BLOOD Routine 04/01/2024 3:12 PM ROLL ICER 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) documented in this encounter Results * PHOSPHORUS BLOOD (04/01/2024 3:12 PM ROLL ICER) Phosphorus 2.9 2.8 - 5.1 mg/dL 04/01/2024 5:52 PM ROLL ICER [facility] Blood BLOOD SPECIMEN / Unknown Lab Venipuncture / Unknown 04/01/2024 3:12 PM ROLL ICER 04/01/2024 5:30 PM ROLL ICER Cindy Garcia MD LAB - CHEMISTRY [facility] [address] [address], [place] [phone] * URIC ACID BLOOD (04/01/2024 3:12 PM ROLL ICER) Uric Acid 4.0 3.5 - 7.2 mg/dL 04/01/2024 5:52 PM ROLL ICER [facility] Blood BLOOD SPECIMEN / Unknown Lab Venipuncture / Unknown 04/01/2024 3:12 PM ROLL ICER 04/01/2024 5:30 PM ROLL ICER Cindy Garcia MD LAB - CHEMISTRY [facility] [address] [address], [place] [phone] * (ABNORMAL) DIFFERENTIAL MANUAL (04/01/2024 3:12 PM ROLL ICER) Neutrophil % 31(L) 41 - 74 % 04/01/2024 5:13 PM [facility] Lymphocyte % 60(H) 17 - 47 % 04/01/2024 5:13 PM [facility] Monocyte % 9 3 - 11 % 04/01/2024 5:13 PM [facility] Neutrophil Absolute 0.25(L) 1.60 - 7.50 x10E9/L 04/01/2024 5:13 PM [facility] Lymphocyte Absolute 0.48(L) 1.00 - 4.40 x10E9/L 04/01/2024 5:13 PM [facility] Monocyte Absolute 0.07(L) 0.15 - 1.00 x10E9/L 04/01/2024 5:13 PM [facility] RBC Morphology REVIEWED 04/01/2024 5:13 PM [facility] Steven Cells MANY(A) (none) 04/01/2024 5:13 PM [facility] Schistocytes FEW(A) (none) 04/01/2024 5:13 PM [facility] Blood BLOOD SPECIMEN / Unknown Lab Venipuncture / Unknown 04/01/2024 3:12 PM ROLL ICER 04/01/2024 3:36 PM ROLL ICER Cindy Garcia MD LAB - HEMATOLOGY ORD ERABLES [facility] [address] [place] [phone], [facility] [phone] * MAGNESIUM BLOOD (04/01/2024 3:12 PM ROLL ICER) Pathologist [facility] Magnesium 2.1 1.6 - 2.6 mg/dL 04/01/2024 4:25 PM [facility] Comment:Hemolysis detected i n this specimen. Hemolysis is known to cause elevations in this analyte. Caution should be exercised in the interpretation of this result. Recommend repeat testing if clinically indicated. Blood BLOOD SPECIMEN / Unknown Lab Venipuncture / Unknown 04/01/2024 3:12 PM ROLL ICER 04/01/2024 3:36 PM ROLL ICER Cindy Garcia MD LAB - CHEMISTRY [facility] [address] [place] [address], [facility] [phone] * ERYTHROPOIETIN (04/01/2024 3:12 PM ROLL ICER) [facility] Erythropoietin 22 4 - 27 mU/mL 04/02/2024 11:36 AM ROLL ICER [facility] ([facility]) Comment: INTERPRETIVE INFORMATION: Erythropoietin Normal serum concentrations [...] may benefit from therapy with recombinant EPO ([facility] [id number],[phone]). Performed By: [employer] [address] [place] [address] Change Management Coordinator: Uche Morley MD, PhD CLIA Number: [id number] Blood BLOOD SPECIMEN / Unknown Lab Venipuncture / Unknown 04/01/2024 3:12 PM ROLL ICER 04/01/2024 3:22 PM ROLL ICER Cindy Garcia MD LAB - CHEMISTRY [facility] [employer] [facility]) [address] [place] [address], [facility] * SOLUBLE TRANSFERRIN RECEPTOR (04/01/2024 3:12 PM ROLL ICER) [facility] Soluble Transferrin Receptor 3.3 2.2 - 5.0 mg/L 04/02/2024 9:13 PM ROLL ICER [employer] ([facility]) Comment: INTERPRETIVE INFORMATION: Soluble Transferrin Receptor People [...] ??High ? Normal ? High Performed By: [facility] [address] [place] [address] Change Management Coordinator: Uche Morley MD, PhD CLIA Number: [id number] Blood BLOOD SPECIMEN / Unknown Lab Venipuncture / Unknown 04/01/2024 3:12 PM ROLL ICER 04/01/2024 3:22 PM ROLL ICER Cindy Garcia MD LAB - CHEMISTRY [facility] [employer] ([facility]) [address] [place] [address] * (ABNORMAL) COMPREHENSIVE METABOLIC PANEL (04/01/2024 3:12 PM ROLL ICER) [facility] BUN 16 7 - 26 mg/dL 04/01/2024 4:25 PM [facility] Creatinine 1.28(H) 0.71 - 1.16 mg/dL 04/01/2024 4:25 PM [facility] Sodium 140 136 - 145 mmol/L 04/01/2024 4:25 PM [facility] Potassium 4.2 3.5 - 4.5 mmol/L 04/01/2024 4:25 PM [facility] Comment:Hemolysis detected i n this specimen. Hemolysis may cause false elevations in potassium leading to pseudohyperkalemia or masked hypokalemia. Recommend repeat testing if clinically indicated. Chloride 107 98 - 107 mmol/L 04/01/2024 4:25 PM [facility] CO2 25 22 - 29 mmol/L 04/01/2024 4:25 PM [facility] Glucose 106(H) 70 - 99 mg/dL 04/01/2024 4:25 PM [facility] Calcium 9.2 8.4 - 10.2 mg/dL 04/01/2024 4:25 PM [facility] Protein Total 7.1 6.0 - 8.3 g/dL 04/01/2024 4:25 PM [facility] Comment:Hemolysis detected i n this specimen. Hemolysis is known to cause elevations in this analyte. Caution should be exercised in the interpretation of this result. Recommend repeat testing if clinically indicated. Albumin 3.8 3.4 - 5.0 g/dL 04/01/2024 4:25 PM [facility] Bilirubin Total 0.7 0.2 - 1.2 mg/dL 04/01/2024 4:25 PM [facility] Alkaline Phosphatase 115 40 - 150 U/L 04/01/2024 4:25 PM [facility] ALT 34 5 - 55 U/L 04/01/2024 4:25 PM [facility] AST 30 5 - 34 U/L 04/01/2024 4:25 PM [facility] Comment:Hemolysis detected i n this specimen. Hemolysis is known to cause elevations in this analyte. Caution should be exercised in the interpretation of this result. Recommend repeat testing if clinically indicated. Anion Gap 8 6 - 16 04/01/2024 4:25 PM [facility] BUN/Creatinine Ratio 13 7 - 23 03/11 4:25 PM [facility] Osmolality Calculated 292 275 - 295 mOsm/kg 04/01/2024 4:25 PM [facility] Albumin/Globulin Ratio 1.2 1.1 - 2.3 04/01/2024 4:25 PM [facility] eGFR by CKD-EPI 57(L) >=90 mL/min/1 .73 m2 04/01/2024 4:25 PM [facility] Blood BLOOD SPECIMEN / Unknown Lab Venipuncture / Unknown 04/01/2024 3:12 PM ROLL ICER 04/01/2024 3:36 PM ROLL ICER Cindy Garcia MD LAB - CHEMISTRY [facility] Organization Address City/State/[facility] Co de Phone Number [facility] [address] [place] [phone] [phone] * (ABNORMAL) CBC W/ DIFFERENTIAL (04/01/2024 3:12 PM ROLL ICER) WBC 0.8(LL) 4.0 - 10.7 x10E9/L 04/01/2024 5:17 PM [facility] RBC Count 4.17(L) 4.30 - 5.80 x10E12/L 04/01/2024 5:17 PM [facility] Hemoglobin 11.8(L) 13.3 - 17.5 g/dL 04/01/2024 5:17 PM [facility] Hematocrit 37.3(L) 38.7 - 51.1 % 04/01/2024 5:17 PM [facility] MCV 89.4 80.0 - 98.0 fL 04/01/2024 5:17 PM [facility] MCH 28.3 26.7 - 33.6 pg 04/01/2024 5:17 PM [facility] MCHC 31.6(L) 31.7 - 36.3 g/dL 04/01/2024 5:17 PM [facility] RDW-CV 17.3(H) 11.3 - 14.8 % 04/01/2024 5:17 PM [facility] Platelet Count 78(L) 150 - 420 x10E9/L 04/01/2024 5:17 PM [facility] MPV 10.8 7.8 - 11.4 fL 04/01/2024 5:17 PM [facility] Blood BLOOD SPECIMEN / Unknown Lab Venipuncture / Unknown 04/01/2024 3:12 PM ROLL ICER 04/01/2024 3:36 PM ROLL ICER Cindy Garcia MD LAB - HEMATOLOGY ORD ERABLES [facility] [address] [place] [address], [facility] [phone] documented in this encounter Visit Diagnoses Diagnosis 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
--- OUTSIDE RECORDS SUMMARY | 2024-04-09 17:26 | XMS_ITS | Encounter Summary ---
Author Organization [facility] Address [address] [facility] [place] [address] Care Team Providers Care Supervisor [employer] Name Role Phone Timothy Banks MD Primary Care Provider [phone] Encounter Details Date Type Department Care Team (Latest Contact Info) Description 03/13/2024 Travel Social History Tobacco Use Types Packs/Day [...] and heating? Not hard at all 03/13/2024 [facility] [place] of Occupat ional Health - Occupational Stress [...] any time in the past 12 m [facility], were you homeless or living in a nursing home (including now)? No 03/13/2024 Sex and Gender Information Value Date Recorded Sex Assigned at Male 03/05/2024 8:04 AM ROLL PLUGGER MACHINE OPERATOR Gender Identity Male 03/05/2024 8:04 AM ROLL PLUGGER MACHINE OPERATOR Sexual Orientation Straight 03/05/2024 8: 04 AM ROLL PLUGGER MACHINE OPERATOR documented as of this encounter Plan of Treatment Upcoming Encounters Date Type Department Care Team (Late st Contact Info) Description 04/11/2024 8:00 AM ROLL PLUGGER MACHINE OPERATOR Hospital Encounter [facility] [address] [place] [address] Cindy Garcia MD [address] [place] [address] 04/15/2024 8:30 AM ROLL PLUGGER MACHINE OPERATOR Hospital Encounter [facility] [address] [place] [phone] 04/16/2024 9:00 AM ROLL PLUGGER MACHINE OPERATOR Hospital Encounter [facility] [address] [place] [address] 04/17/2024 8:30 AM ROLL PLUGGER MACHINE OPERATOR Appointment [facility] [address] [place] [address] 04/18/2024 9:30 AM ROLL PLUGGER MACHINE OPERATOR Appointment [facility] [address] [place] [address] 04/18/2024 10:30 AM ROLL PLUGGER MACHINE OPERATOR Office Visit [facility] - Hematology/Oncology [address] [place] [phone] Cindy Garcia MD [address] [place] [address] 04/19/2024 9:00 AM ROLL PLUGGER MACHINE OPERATOR Appointment [facility] [address] [place] [address] 05/13/2024 9:00 AM ROLL PLUGGER MACHINE OPERATOR Appointment [facility] [address] [place] [address] documented as of this encounter Visit Diagnoses Not on filedocumented in this encounter Care Teams Supervisor [employer] Relationship Specialty Start Date End Date Timothy Banks MD [address] [place] [address] PCP - General 10/19/18 documented as of this encounter
--- OUTSIDE RECORDS SUMMARY | 2024-04-09 17:26 | XMS_ITS | Encounter Summary ---
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) Frank Singh MD [address] [facility] [address] [place] [phone] [facility] [address] [place] [address] Referral ID Status Reason Start Date Expiration Date V isits Requested Visits Authorized [id number] Pending Review 02/28/2024 02/27/2025 1 1 Encounter Details Date Type Department Care Team (Late st Contact Info) Description 03/04/2024 2:00 PM OIL PAINT SHADER Office Visit [facility] - Hematology/Oncology [address] [place] [address] Cindy Garcia MD [address] [place] [address] MDS (myelodysplastic syndrome) (HCC) (Primary Dx) Social History Tobacco Use Types Packs/Day Years Used Date Smoking Tobacco: Never Assessed AUDIT-C Answer Date Recorded Q1: How often [...] and heating? Not hard at all 03/13/2024 [facility] [place] of Occupat ional Health - Occupational Stress [...] any time in the past 12 m [facility], were you homeless or living in a detention (including now)? No 03/13/2024 Sex and Gender Information Value Date Recorded Sex Assigned at Male 03/05/2024 8:04 AM OIL PAINT SHADER Gender Identity Male 03/05/2024 8:04 AM OIL PAINT SHADER Sexual Orientation Straight 03/05/2024 8: 04 AM OIL PAINT SHADER documented as of this encounter Last Filed Vital Signs Vital Sign Reading Time Taken Comments Blood Pressure 133/85 03/04/2024 1:29 PM OIL PAINT SHADER Pulse 81 03/04/2024 1:29 PM OIL PAINT SHADER Temperature 36.9 ??C (98.4 ??F) 03/04/2024 1:29 PM CS T Respiratory Rate 18 03/04/2024 1:29 PM OIL PAINT SHADER Oxygen Saturation 99% 03/04/2024 1:29 PM OIL PAINT SHADER Inhaled Oxygen Concentration - - Weight 100.2 kg (221 lb) 03/04/2024 1:29 PM OIL PAINT SHADER Height 181.4 cm (5' 11.42 ) 03/04/2024 1:[address] Body Mass Index 30.46 03/04/2024 1:29 PM OIL PAINT SHADER documented in this encounter Progress Notes * Cindy Garcia MD - 03/04/2024 2:00 PM CST Dx: Bmbx concerning for high-grade myeloid disorder HPI: 78yo M who was diagnosed with chronic leukopenia in 2022 and history as below presented with LLQ abdominal pain and loose stool, diagnosed with diverticulitis in at the end of December 2023. Labs notable for WBC 1.8, CT A/P negative for hepatosplenomegaly. Imaging suggestive of pulmonary opacities likely infection. Underwent treatment for diverticulitis as well as Neupogen for neutropenia. Discharged with a WBC of 18.8. Bone marrow performed February 12, 2024: at that time, WBC had droppedback down to 1.2: -morphology: increased myeloblasts (up to 30% by morphology) with mild trilineagea dyspoiesis involving a hypercellular bone marrow (70-80%), absent iron stores, patchy and mild increase in reticulinfibrosis MF-1 *It is not possible to distinguish a reactive/benign marrow responding to granulocyte colony-stimulating factors (Neupogen) with hypercellularity and myeloid immaturity versus acute myeloid leukemia by morphology alone. The mild trilineage dyspoiesis present could be reactive in response to the stimulatory effects of Neupogen, but could also be indicative of a myelodysplastic neoplasm. Correlation with cytogenetic data, FISH, and next-generation sequencing are required to differentiate between the expected bone marrow stimulatory effects of Neupogen and a high-grade myeloid neoplasm.* -aspirate: 20% blasts Has been in generally good health, works out 4-5 days per week at the gym. Has lost 50 pounds intentionally. Has had long-standing fatigue, requiring an afternoon nap, but which is improved with exercise program. Good appetite. Suffers from chronic unsteadiness, neuropathy, which has been worked up extensively. Reportedly increased arsenic levels. 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 -sleep apnea 2017 -tendon injury right foot PSH: -angioplasty 2004 -appendectomy 1995 -cholecystectomy 1995 -heart cath 2022 -hernia repair, 1945, 1946 -hiatal hernia 2004 Fhx: -brother: heart disease, alzheimer's -mother: alzheimer's -father: alzheimer's -sister: alzheimer's Soc: -tobacco: never -etoh: yes -illicits: no -living situation: , lives in [place], [place] -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 Bone marrow biopsy in the setting of growth factor use for diverticulitis shows increased blasts. Marrow was hypercellular at 708-%. WBC back to baseline (~1.0 from peak at 18k). Will plan for repeat marrow with full molecular/genetic studies to interrogate for high-grade myeloid neoplasm, ie MDS vs AML. Had been following at [facility] for neutropenia: no hx recurrent infections, fevers, or cold sores. Platelet count dropping is also of concern. All: -no current issues Cardiac: -EF: hypertensive LVH, mild left atrial enlargement, mild mitral/aortic/tricuspid regurgitation, diastolic dysfunction -EKG: PVCs, RBBB, SVT, pending EP consult -lipids: check at next visit -HTN: cardizem Coag: -hx blood clots, on Eliquis -2004: DVT/PE following hiatal hernia repair s/p Braxton filter placement; warfarin x6 mos -2005: RLE DVT after warfarin discontinuation-->warfarin restarted -2011: LLE DVT occurred after re-initiation of warfarin after holding for a SBO (believed to be 2/2viral gastroenteritis); treated with NG tube placement and NPO; received lovenox in the hospital-->1-2 days after resuming warfarin, noticed RLE pain-->recurrent RLE clot-->switched to Eliquis BIG -had been on Eliquis 5mg bid with discussions to drop to 2.5mg bid after travels BMT: -CMV: check today -HLA-typing: in-process -donors: potentially children Dental: -advised regular eval, ?abx ppx -son is his dentist Derm: -no current issues Endo: -tsh/t4 wnl -on vitamin D supplementation ENT: -occasional nosebleeds w/cpap use-->check coags at next visit GI/liver/panc/biliary: -GERD: on prevacid -diverticulitis /gyne/fertility: -no current issues Hematinics: -B12: normal -folate: on folic acid, normal -Cu wnl -Zn wnl ID: -G: recent growth factor use -ppx abx: consider for profound neutropenia -vaccinations: due for covid (not UTD), flu (up to date), rsv, pneumonia -viral hep: HCV neg; HBV non-immune-->to be immunized -hiv: neg -CMV/Parvo: consider checking for chronic neutropenia, although less likely causes in face of concern for myeloid disorder Iron: -low ferritin, iron, iron sat, absent iron stores on marrow although normal MCV (mixed picture) -GI eval + iron replacement -soluble transferrin receptor-->obtain at next visit -+microcytosis Neuro: -no current issues Nutrition: -neuropathy worked up extensively -consider 2/2 recurrent LE DVT's Ophtho -?glaucoma -hx cataracts Pulm: -copd: albuterol, symbicort -vaibhav: cpap Psych: -no current issues Psychosocial/financial: -no current issues PT/OT: -no current issues Renal/electrolytes/acid-base: -CKD stage III -can check epo at next visit Rheum/: -RF, CRP, ESR, neg -await MARLINE Access: -no current issues Code status: not addressed at this visit Dispo: RTC 03/25 *MARLINE neg *CMV neg *Cu wnl *Zn wnl *AML FISH panel neg (however off peripheral blood)-->pending marrow fish aml and fish mds *start ppx abx with mold active agent *iron deficiency-->to start PO, consider GI eval later *peripheral MMP + for 2 sepatate DNMT3A mutations (8.3 and 9% respectively), IDH1 11%, and CUX1 (41.3%)-->f/u marrow ngs *normal marrow FISH MDS *s/p induction with DAC/Diogenes: rpt marrow upon admission w/core showing 30% blasts, p53 negative, background dysplasia, 22% blasts on aspirate, 42.4% blasts on flow though paucicellular, cellularity 70-8-%, megakaryocytic dysplasia; CN wnl (though few metaphase cells) *attn to apixaban and TCP-->keep plts >50k *HBV non-immune; outpatient immunizations *quantiferon pending *renal fxn normalized after GOLDY/; check g6pd *check qtc on EKG *gerd: ppi *diverticulitis: bowel reg *access: consider CVC *vaibhav: confirm is using cpap *FISH AML negative *MMP + IDH1, DNMT3A x2, Jak2, STAG2, BCOR x2, CEBPA, CUX2 PAINT SHADER documented in this encounter Plan of Treatment Upcoming Encounters Date Type Department Care Team (Late st Contact Info) Description 04/11/2024 8:00 AM OIL PAINT SHADER Hospital Encounter [facility] [address] [place] [address] Cindy Garcia MD [address] [place] [address] 04/15/2024 8:30 AM OIL PAINT SHADER Hospital Encounter [facility] [address] [place] [address] 04/16/2024 9:00 AM OIL PAINT SHADER Hospital Encounter [facility] [address] [place] [address] 04/17/2024 8:30 AM OIL PAINT SHADER Appointment [facility] [address] [place] [phone] 04/18/2024 9:30 AM OIL PAINT SHADER Appointment [facility] [address] [place] [phone] 04/18/2024 10:30 AM OIL PAINT SHADER Office Visit [facility] - Hematology/Oncology [address] [place] [phone] Cindy Garcia MD [address] [place] [address] 04/19/2024 9:00 AM OIL PAINT SHADER Appointment [facility] [address] [place] [phone] 05/13/2024 9:00 AM OIL PAINT SHADER Appointment [facility] [address] [place] [phone] Scheduled Orders Name Type Priority Associated Diagnoses Order Schedule HIV-1 HIV-2 ANTIBODY + HIV P24 AG PANEL (New on 08/24) Lab Routine MDS (myelodysplastic syndrome) (HCC) 1 Occurrences starting 03/04/2024 until 02/27/2025 FERRITIN Lab Routine MDS (myelodysplastic syndrome) (HCC) 1 Occurrences starting 03/04/2024 until 03/29/2025 IRON + TIBC PANEL Lab Routine MDS (myelodysplastic syndrome) (HCC) 1 Occurrences starting 03/04/2024 until 04/03/2025 TRANSFERRIN Lab Routine MDS (myelodysplastic syndrome) (HCC) 1 Occurrences starting 03/04/2024 until 03/29/2025 FISH BCR-ABL+CML CHROMOSOME Lab Routine MDS (myelodysplastic syndrome) (HCC) 1 Occurrences starting 03/04/2024 until 04/03/2025 FISH CML/ALL, BCR/ABL TRANSLOCATION 9,22 Pathology Cytology Routine MDS (myelodysplastic syndrome) (HCC) 1 Occurrences starting 03/04/2024 until 04/03/2025 FISH AML+MDS PANEL Pathology Cytology Routine MDS (myelodysplastic syndrome) (HCC) 1 Occurrences starting 03/04/2024 until 04/03/2025 FISH AML PANEL Pathology Cytology Routine MDS (myelodysplastic syndrome) ([facility]) 1 Occurrences starting 03/04/2024 until 04/03/2025 MYELOID MALIGNANCIES MUTATION PNL Pathology Cytology STAT MDS (myelodysplastic syndrome) ([facility]) 1 Occurrences starting 03/04/2024 until 03/29/2025 documented as of this encounter Results * MYELOID MALIGNANCIES MUTATION PNL (03/04/2024 4:13 PM OIL PAINT SHADER) Interpretation Myeloid Malignancy PNL See Note 03/15/2024 11:[address] [facility] [employer] ([facility]) Comment: Myeloid Malignancies Mutation Panel NGS Submitted diagnosis or diagnosis under consideration for variant interpretation: Myelodysplastic syndrome, unspecified (MDS unspec) TIER 1: Variants of Known Clinical Significance in Hematologic Malignancies 1. IDH1 c.394C>A, p.Mnm807Xqq ([id number]) VAF: 11.0% IDH1 encodes an enzyme that catalyzes the conversion of isocitrate to alpha-ketoglutarate in the citric acid cycle (14). Somatic mutations of IDH1 are found in 4-12% of patients with myelodysplastic syndrome (MDS) (9). Acquired IDH1 mutations mostly affect codon Qro968 (8) (21) (11). This mutation has been reported in hematologic malignancies (4). The prognostic significance of mutated IDH1 in MDS is uncertain (13) (17) (5) (10) (12) (20). 2. DNMT3A c.2206C>T, p.Ufu688Aai ([id number]) VAF: 9.0% DNMT3A encodes a DNA methyltransferase enzyme (22). Somatic mutations of DNMT3A are found in 3-20% of patients with MDS (15) (3) (16). In myeloid malignancies, acquired DNMT3A mutations are often missense mutations at codon Pos070, frameshift, or nonsense mutations (15). This mutation has been reported in hematologic malignancies (4) (3). MDS patients with DNMT3A mutations are more likely to progress to secondary acute myeloid leukemia (AML) (6) (18) (19). Mutated DNMT3A is also associated with shorter overall survival in MDS patients after hematopoietic stem cell transplantation (2). 3. DNMT3A c.2407A>G, p.Ttd111Ofz ([id number]) VAF: 8.3% This mutation has been reported in hematologic malignancies (3) (4). TIER 2: Variants of Unknown Clinical Significance in Hematologic Malignancies 1. CUX1 c.3085G>A, p.Cwe8068Pyh ([id number]) VAF: 41.3% This variant has been rarely reported in hematologic malignancies (1) (7), to the best of our knowledge. References 1: Lynnette P, ??Emmanuelle B, ??Zhanna CLARK et al, Assessment of Minimal Residual Disease by Next Generation Sequencing in Peripheral Blood as a Complementary Tool for Personalized Transplant Monitoring in Myeloid Neoplasms. J Clin Med 2020. PMID:[id number] 2: Virginie R, ??Juan HERNANDEZ, ??Ulises Kim et al, Somatic mutations predict poor outcome in patients with myelodysplastic syndrome after hematopoietic stem-cell transplantation. J Clin Oncol 2014. PMID:28546796 3: cBioPortal: http://www.cbioportal.org/ 4: COSMIC: https://cancer.vipin.ac.uk/cosmic 5: Jahaira GRAY, ??Kamla E, ??Mary Mason et al, IDH1 and IDH2 mutations in myelodysplastic syndromes and role in disease progression. Leukemia 2016. PMID:91049380 6: Asiya I, ??Day C, ??Lenin MURPHY et al, Frequency, onset and clinical impact of somatic DNMT3A mutations in therapy-related and secondary acute myeloid leukemia. Haematologica 2012. PMID:13039742 7: Cassandra Kim, ??Cornell M, ??Alexis Valdivia et al, DNA methylation epitypes highlight underlying developmental and disease pathways in acute myeloid leukemia. Genome Res 2020. PMID:25341186 8: Karolyn S, ??Abena BACON, ??Jaziel MARTINEZ et al, Cancer-associated metabolite 2-hydroxyglutarate accumulates in acute myelogenous leukemia with isocitrate dehydrogenase 1 and 2 mutations. J Exp Med 2010. PMID:16486540 9: Im AP, ??Louie AR, ??Kervin FRAIRE et al, DNMT3A and IDH mutations in acute myeloid leukemia and other myeloid malignancies: associations with prognosis and potential treatment strategies. Leukemia 2014. PMID:[id number] 10: Jose J O, ??Charity Barcenas, ??Grayson Stroud et al, Mutations of IDH1 and IDH2 genes in early and accelerated phases of myelodysplastic syndromes and MDS/myeloproliferative neoplasms. Leukemia 2010. PMID:94980099 11: Gala WOMACK, ??Juan Stroud, ??Janes Barcenas et al, FDA Approval Summary: Ivosidenib for Relapsed or Refractory Acute Myeloid Leukemia with an Isocitrate Dehydrogenase-1 Mutation. Clin Cancer Res 2019. PMID:[id number] 12: Papaemmanuil E, ??Gerstung M, ??Hugh L et al, Clinical and biological implications of regional company truck driver mutations in myelodysplastic syndromes. Blood 2013. PMID:99052143 13: Eileen MM, ??Rajinder CA, ??Juju OTERO et al, Differential prognostic effect of IDH1 versus IDH2 mutations in myelodysplastic syndromes: a [facility] study of 277 patients. Leukemia 2012. PMID:23483854 14: Bulmaro BENTON, Josse H, Isocitrate dehydrogenase 1 and 2 mutations in cancer: alterations at a crossroads of cellular metabolism. J Natl Cancer Inst 2010. PMID:46052231 15: Jose Valdivia, ??Ivan Barcenas, ??Yudi James et al, [place] analysis of DNMT3A mutations in hematological malignancies. Leukemia 2013. PMID:[id number] 16: Kim LANZA, ??Lisa-Hussein O, ??Arnulfo REINOSO et al, The role of mutations in epigenetic regulators in myeloid malignancies. Bharti Rev Cancer 2012. PMID:08435776 17: Thol F, ??Roverto EM, ??Sam Lynn et al, IDH1 mutations in patients with myelodysplastic syndromes are associated with an unfavorable prognosis. Haematologica 2010. PMID:61259023 18: Thol F, ??Lisa Rubin, ??Bro Moreno al, Rare occurrence of DNMT3A mutations in myelodysplastic syndromes. Haematologica 2011. PMID:[id number] 19: Barrett MERRITT, ??Tono Stroud, ??Jossue Amador et al, Recurrent DNMT3A mutations in patients with myelodysplastic syndromes. Leukemia 2011. PMID:[id number] 20: Cornell N, ??Sarabia F, ??Yuval N et al, IDH1 Mutation Is an Independent Inferior Prognostic Indicator for Patients with Myelodysplastic Syndromes. Acta Haematol 2017. PMID:38251160 21: Reynaldo HERNANDEZ, ??Arnulfo Lynn, ??Bartolo GUIDO et al, The common feature of leukemia-associated IDH1 and IDH2 mutations is a neomorphic enzyme activity converting alpha-ketoglutarate to 2-hydroxyglutarate. Cancer Cell 2010. PMID:38736494 22: Ochoa Stroud, Gabriella R, Hieu ALBERTS, DNMT3A in haematological malignancies. Bharti Rev Cancer 2015. PMID:78566235 This result has been reviewed and approved by Renetta Hanks M.D. Low coverage regions: Listed below are regions where the average sequencing depth (number of times a particular nucleotide is sequenced) in at least 20% of the dskate-oe-wcdcttwg is less than our stringent cutoff of 300. Sensitivity for detection of low allelic frequency variants may be reduced in areas with reduced depth of coverage. ANKRD26([id number]) exon 29 JAK2(NM_[id number]) exon 15 BACKGROUND INFORMATION: Myeloid Malignancies Mutation ?Panel by [...] NOTCH1; NPM1*; NRAS; NSD1; PHF6; PIGA; PPM1D; TXAS47P; PRPF8; PTPN11; RAD21; RUNX1; SAMD9; SAMD9L; SETBP1; [...] developed and its performance characteristics determined by [facility]. It has not been cleared or approved by the U.S. Food and Drug Administration. This test was performed in a CLIA-certified laboratory and is intended for clinical purposes. Myeloid Malignancy Dx Mds Unspec 03/15/2024 11:52 AM [facility] [employer] ([facility]) Myeloid Malignancy Panel Specimen Whole Blood 03/15/2024 11:52 AM [facility] ([facility]) EER Myeloid Malignancy See Note 03/15/2024 11:52 AM [facility] [employer] ([facility]) Comment: Authorized individuals can access the [employer] Enhanced Report using the following link: [email or web address] Performed By: [facility] [address] [place] [address] Snowboarding Instructor: Uche Morley MD, PhD CLIA Number: [id number] Other BLOOD SPECIMEN / Unknown Collection / Unknown 03/04/2024 4:13 PM OIL PAINT SHADER 03/04/2024 4:24 PM OIL PAINT SHADER Cindy Garcia MD LAB - PATHOLOGY/CYTO LOGY ORDERABLES [facility] ([facility]) [address] [place] [address], [facility] documented in this encounter Visit Diagnoses Diagnosis MDS (myelodysplastic syndrome) (HCC)- Primary Myelodysplastic syndrome, unspecified documented in this encounter Care Teams Electrical Continuity Tester Relationship Specialty Start Date End Date Timothy Banks MD [address] [place] [phone] PCP - General 10/19/18 Cindy Garcia MD [address] [place] [address] Clinical Operations Consultant/Oncologis t Hematology and Oncology 03/24/24 documented as of this encounter
--- OUTSIDE RECORDS SUMMARY | 2024-04-09 17:26 | XMS_ITS | Encounter Summary ---
Author Organization [facility] Address [address] [facility] [place] [address] Care Team Providers Care Lathe Setup Operator Name Role Phone Timothy Banks MD Primary Care Provider [phone] Reason for Visit * Reason Onset Date Comments Appointment 03/01/2024 Patient has comf irmed Encounter Details Date Type Department Care Team (Late st Contact Info) Description 03/01/2024 Telephone [facility] - Hematology/Oncology [address] [place] [phone] Cindy Mansfield MA Appointment (Patient has comfirmed) Social History Tobacco Use Types Packs/Day Years Used Date Smoking Tobacco: Never Assessed Sex and Gender Information Value Date Recorded Sex Assigned at Male 03/05/2024 8:04 AM TERRA COTTA ROOFER HELPER Gender Identity Male 03/05/2024 8:04 AM TERRA COTTA ROOFER HELPER Sexual Orientation Straight 03/05/2024 8: 04 AM TERRA COTTA ROOFER HELPER documented as of this encounter Plan of Treatment Upcoming Encounters Date Type Department Care Team (Late Contact Info) Description 04/11/2024 8:00 AM TERRA COTTA ROOFER HELPER Hospital Encounter [facility] [address] [place] [address] Cindy Garcia MD [address] [place] [address] 04/15/2024 8:30 AM TERRA COTTA ROOFER HELPER Hospital Encounter [facility] [address] [place] [phone] 04/16/2024 9:00 AM TERRA COTTA ROOFER HELPER Hospital Encounter [facility] [address] [place] [address] 04/17/2024 8:30 AM TERRA COTTA ROOFER HELPER Appointment [facility] [address] [place] [address] 04/18/2024 9:30 AM TERRA COTTA ROOFER HELPER Appointment [facility] [address] [place] [address] 04/18/2024 10:30 AM TERRA COTTA ROOFER HELPER Office Visit [facility] - Hematology/Oncology [address] [place] [phone] Cindy Garcia MD [address] [place] [address] 04/19/2024 9:00 AM TERRA COTTA ROOFER HELPER Appointment [facility] [address] [place] [phone] 05/13/2024 9:00 AM TERRA COTTA ROOFER HELPER Appointment [facility] [address] [place] [phone] documented as of this encounter Visit Diagnoses Not on filedocumented in this encounter Care Teams Lathe Setup Operator Relationship Specialty Start Date End Date Timothy Banks MD [address] [place] [phone] PCP - General 10/19/18 documented as of this encounter
--- OUTSIDE RECORDS SUMMARY | 2024-04-09 17:26 | XMS_ITS | Encounter Summary ---
Author Organization [facility] Address [address] [place] [address] Care Team Providers Care Corporate Safety Director Name Role Phone Timothy Banks MD Primary Care Provider [phone] Reason for Visit * Reason Onset Date Comments Medication Prior Auth Request 03/14/2024 Encounter Details Date Type Department Care Team (Late st Contact Info) Description 03/14/2024 Telephone [facility] - Hematology/Oncology [address] [place] [address] Cindy Garcia MD [address] [place] [address] Medication Prior Auth Request Social [...] and heating? Not hard at all 03/13/2024 [facility] [place] of Occupat ional Health - Occupational Stress [...] any time in the past 12 m [facility], were you homeless or living in a custodial (including now)? No 03/13/2024 Sex and Gender Information Value Date Recorded Sex Assigned at Male 03/05/2024 8:04 AM TIRE MOLD TESTER Gender Identity Male 03/05/2024 8:04 AM TIRE MOLD TESTER Sexual Orientation Straight 03/05/2024 8: 04 AM TIRE MOLD TESTER documented as of this encounter Functional Status [...] Encounter - Ryan Bolden CPhT - 03/14/2024 7:52 AM CST Medication Prior Authorization Medication: POSACONAZOLE Status: Approved through 09/09/2024 Submitted via: Cover My Meds ([place]:[email or web address]) Insurance: KANDI MOLD TESTER documented in this encounter Plan of Treatment Upcoming Encounters Date Type Department Care Team (Late st Contact Info) Description 04/11/2024 8:00 AM TIRE MOLD TESTER Hospital Encounter [facility]R [address] [place] [address] Cindy Garcia MD [address] [place] [phone] 04/15/2024 8:30 AM TIRE MOLD TESTER Hospital Encounter [facility] [address] [place] [phone] 04/16/2024 9:00 AM TIRE MOLD TESTER Hospital Encounter [facility] [address] [place] [phone] 04/17/2024 8:30 AM TIRE MOLD TESTER Appointment [facility] [address] [place] [phone] 04/18/2024 9:30 AM TIRE MOLD TESTER Appointment [facility] [address] [place] [phone] 04/18/2024 10:30 AM TIRE MOLD TESTER Office Visit [facility] - Hematology/Oncology [address] [place] [phone] Cindy Garcia MD [address] [place] [phone] 04/19/2024 9:00 AM TIRE MOLD TESTER Appointment [facility] [address] [place] [phone] 05/13/2024 9:00 AM TIRE MOLD TESTER Appointment [facility] [address] [place] [phone] documented as of this encounter Visit Diagnoses Not on filedocumented in this encounter Care Teams Corporate Safety Director Relationship Specialty Start Date End Date Timothy Banks MD [address] [place] [phone] PCP - General 10/19/18 documented as of this encounter
--- OUTSIDE RECORDS SUMMARY | 2024-04-09 17:26 | XMS_ITS | Encounter Summary ---
Author Organization [facility] Address [address] [place] [address] Care Team Providers Care Aboriginal Education Teacher Name Role Phone Timothy Banks MD Primary Care Provider [phone] Cindy Garcia MD Unavailable Encounter Details Date Type Department Care Team (Late st Contact Info) Description 03/25/2024 Orders Only [facility] [address] [place] [address] Ekta Ferro, PLANT GUARD-RANGE RIDER [address] [place] [address] Social History Tobacco Use Types Packs/Day Years [...] and heating? Not hard at all 03/13/2024 [facility] [place] of Occupat ional Health - Occupational Stress [...] any time in the past 12 m [facility], were you homeless or living in a prison (including now)? No 03/13/2024 Sex and Gender Information Value Date Recorded Sex Assigned at Male 03/05/2024 8:04 AM HYDRO STATION SUPERVISOR Gender Identity Male 03/05/2024 8:04 AM HYDRO STATION SUPERVISOR Sexual Orientation Straight 03/05/2024 8: 04 AM HYDRO STATION SUPERVISOR documented as of this encounter Functional Status [...] st Contact Info) Description 04/11/2024 8:00 AM HYDRO STATION SUPERVISOR Hospital Encounter [facility] IVR [address] [place] [address] Cindy Garcia MD [address] [place] [phone] 04/15/2024 8:30 AM HYDRO STATION SUPERVISOR Hospital Encounter [facility] [address] [place] [phone] 04/16/2024 9:00 AM HYDRO STATION SUPERVISOR Hospital Encounter [facility] [address] [place] [phone] 04/17/2024 8:30 AM HYDRO STATION SUPERVISOR Appointment [facility] [address] [place] [phone] 04/18/2024 9:30 AM HYDRO STATION SUPERVISOR Appointment [facility] [address] [place] [phone] 04/18/2024 10:30 AM HYDRO STATION SUPERVISOR Office Visit [facility] - Hematology/Oncology [address] [place] [phone] Cindy Garcia MD [address] [place] [phone] 04/19/2024 9:00 AM HYDRO STATION SUPERVISOR Appointment [facility] [address] [place] [phone] 05/13/2024 9:00 AM HYDRO STATION SUPERVISOR Appointment [facility] [address] [place] [phone] documented as of this encounter Visit Diagnoses Not on filedocumented in this encounter Care Teams Aboriginal Education Teacher Relationship Specialty Start Date End Date Timothy Banks MD [address] [place] [address] PCP - General 10/19/18 Cindy Garcia MD [address] [place] [phone] Social Media Strategist/Oncologis t Hematology and Oncology 03/24/24 documented as of this encounter
--- OUTSIDE RECORDS SUMMARY | 2024-04-09 17:26 | XMS_ITS | Encounter Summary ---
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 Not hard at all 03/13/2024 [facility] [place] of Occupat ional Health - Occupational Stress [...] any time in the past 12 m [facility], were you homeless or living in a prison (including now)? No 03/13/2024 Sex and Gender Information Value Date Recorded Sex Assigned at Male 03/05/2024 8:04 AM DIGITAL PRESS OPERATOR Gender Identity Male 03/05/2024 8:04 AM DIGITAL PRESS OPERATOR Sexual Orientation Straight 03/05/2024 8: 04 AM DIGITAL PRESS OPERATOR documented as of this encounter Functional [...] st Contact Info) Description 04/11/2024 8:00 AM DIGITAL PRESS OPERATOR Hospital Encounter [facility]R [address] [place] [address] Cindy Garcia MD [address] [place] [phone] 04/15/2024 8:30 AM DIGITAL PRESS OPERATOR Hospital Encounter [facility] [address] [place] [phone] 04/16/2024 9:00 AM DIGITAL PRESS OPERATOR Hospital Encounter [facility] [address] [place] [phone] 04/17/2024 8:30 AM DIGITAL PRESS OPERATOR Appointment [facility] [address] [place] [address] [phone] 04/18/2024 9:30 AM DIGITAL PRESS OPERATOR Appointment [facility] [address] [place] [phone] 04/18/2024 10:30 AM DIGITAL PRESS OPERATOR Office Visit [facility] - Hematology/Oncology [address] [place] [phone] Cindy Garcia MD [address] [place] [address] [phone] 04/19/2024 9:00 AM DIGITAL PRESS OPERATOR Appointment [facility] [address] [place] [phone] 05/13/2024 9:00 AM DIGITAL PRESS OPERATOR Appointment [facility] [address] [place] [phone] Scheduled Orders Name Type Priority Associated Diagnoses Orde r Schedule CBC WITH DIFFERENTIAL Lab Routine Acute myeloid leuk w multilin dysplasia, 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) Two times a week for 40 Occurrences starting 03/25/2024 until 04/25/2025 COMPREHENSIVE METABOLIC PANEL Lab Routine Acute myeloid leuk w multilin dysplasia, 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
--- OUTSIDE RECORDS SUMMARY | 2024-04-09 17:26 | XMS_ITS | Encounter Summary ---
Author Organization [facility] Address [address] [facility] [place] [address] Care Team Providers Care Overhead Distribution Engineer Name Role Phone Timothy Banks MD Primary Care Provider [phone] Encounter Details Date Type Department Care Team (Late st Contact Info) Description 03/13/2024 Orders Only [facility] [address] [place] [phone] Sammie Hartamn, PharmD Social History Tobacco Use Types Packs/Day Years [...] and heating? Not hard at all 03/13/2024 [facility] [place] of Occupat ional Health - Occupational Stress [...] any time in the past 12 m [facility], were you homeless or living in a prison (including now)? No 03/13/2024 Sex and Gender Information Value Date Recorded Sex Assigned at Male 03/05/2024 8:04 AM ATMOSPHERIC CHEMIST Gender Identity Male 03/05/2024 8:04 AM ATMOSPHERIC CHEMIST Sexual Orientation Straight 03/05/2024 8: 04 AM ATMOSPHERIC CHEMIST documented as of this encounter Plan of Treatment Upcoming Encounters Date Type Department Care Team (Late st Contact Info) Description 04/11/2024 8:00 AM ATMOSPHERIC CHEMIST Hospital Encounter [facility] IVR [address] [place] [address] Cinyd Garcia MD [address] [place] [phone] 04/15/2024 8:30 AM ATMOSPHERIC CHEMIST Hospital Encounter [facility] [address] [place] [phone] 04/16/2024 9:00 AM ATMOSPHERIC CHEMIST Hospital Encounter [facility] [address] [place] [address] 04/17/2024 8:30 AM ATMOSPHERIC CHEMIST Appointment [facility] [address] [place] [phone] 04/18/2024 9:30 AM ATMOSPHERIC CHEMIST Appointment [facility] [address] [place] [phone] 04/18/2024 10:30 AM ATMOSPHERIC CHEMIST Office Visit [facility] - Hematology/Oncology [address] [place] [phone] Cindy Garcia MD [address] [place] [phone] 04/19/2024 9:00 AM ATMOSPHERIC CHEMIST Appointment [facility] [address] [place] [phone] 05/13/2024 9:00 AM ATMOSPHERIC CHEMIST Appointment [facility] [address] [place] [phone] documented as of this encounter Visit Diagnoses Not on filedocumented in this encounter Care Teams Overhead Distribution Engineer Relationship Specialty Start Date End Date Timothy Banks MD [address] [place] [phone] PCP - General 10/19/18 documented as of this encounter
--- OUTSIDE RECORDS SUMMARY | 2024-04-09 17:26 | XMS_ITS | Encounter Summary ---
Author Organization [facility] Address [address] [place] [address] Care Team Providers Care Industrial Paramedic Name Role Phone Timothy Banks MD Primary Care Provider [phone] Encounter Details Date Type Department Care Team (Late Contact Info) Description 03/01/2024 Orders Only [facility] [address] [place] [address] Cindy Garcia MD [address] [place] [address] Neutropenia, unspecified type (HCC) Social History Tobacco Use Types Packs/Day Years Used Date Smoking Tobacco: Never Assessed Sex and Gender Information Value Date Recorded Sex Assigned at Male 03/05/2024 8:04 AM DAG COATER Gender Identity Male 03/05/2024 8:04 AM DAG COATER Sexual Orientation Straight 03/05/2024 8: 04 AM DAG COATER documented as of this encounter Plan of Treatment Upcoming Encounters Date Type Department Care Team (Late Contact Info) Description 04/11/2024 8:00 AM DAG COATER Hospital Encounter [facility] [address] [place] [address] Cindy Garcia MD [facility] [place] [address] 04/15/2024 8:30 AM DAG COATER Hospital Encounter [facility] [address] [place] [address] 04/16/2024 9:00 AM DAG COATER Hospital Encounter [facility] [address] [place] [address] 04/17/2024 8:30 AM DAG COATER Appointment [facility] [address] [place] [address] 04/18/2024 9:30 AM DAG COATER Appointment [facility] [address] [place] [address] 04/18/2024 10:30 AM DAG COATER Office Visit [facility] - Hematology/Oncology [address] [place] [phone] Cindy Garcia MD [address] [place] [address] 04/19/2024 9:00 AM DAG COATER Appointment [facility] [address] [place] [address] 05/13/2024 9:00 AM DAG COATER Appointment [facility] [address] [place] [address] documented as of this encounter Procedures Procedure Name Priority Date/Time Associated Diagnosis Comments HEPATITIS B CORE ANTIBODY TOTAL Routine 03/04/2024 4:13 PM DAG COATER Neutropenia, unspecified type (HCC) documented in this encounter Results * HEPATITIS C ANTIBODY (03/04/2024 4:13 PM DAG COATER) Hepatitis C Antibody Non-react carlos Non-reac tive 03/04/2024 5:12 PM DAG COATER [facility] Comment:Hepatitis C Antibody screen indicates no serologic evidence of past or current infection with Hepatitis C Virus. Patients with unexplained liver disease who are immunocompromised or suspected of having acute Hepatitis C infection may benefit from Nucleic Acid Test (YUSRA) for Hepatitis C Viral RNA to confirm Hepatitis C status. Blood BLOOD SPECIMEN / Unknown Lab Venipuncture / Unknown 03/04/2024 4:13 PM DAG COATER 03/04/2024 4:23 PM DAG COATER Cindy Garcia MD LAB - CHEMISTRY CHELI MONREAL [facility] Organization Address City/State/ZIP Co de Phone Number [facility] [address] [place] [address], [place] [phone] * HEPATITIS B SURFACE ANTIBODY (03/04/2024 4:13 PM DAG COATER) Hepatitis B Virus Surface Antibody Non-react carlos Non-react carlos 03/04/2024 5:12 PM DAG COATER [facility] Comment: < 8 mIU/mL Hepatitis B surface Antibody (HBsAb). Nonreactive for HBsAb - individual is considered not immune to Hepatitis B Virus infection. Hepatitis B Surface Antibody Quantitative 0.3 <8.0 mIU/mL 03/04/2024 5:12 PM DAG COATER [facility] Comment: Hepatitis B Surface Antibody Numeric Result Interpretation: ? Nonreactive: ?<8.0 mIU/mL ? Indeterminate: ??8.0 - 12.0 mIU/mL ? Reactive: ?>12.0 mIU/mL ? Blood BLOOD SPECIMEN / Unknown Lab Venipuncture / Unknown 03/04/2024 4:13 PM DAG COATER 03/04/2024 4:23 PM DAG COATER Cindy Garcia MD LAB - CHEMISTRY CHELI MONREAL Performing Organization Address City/[facility]/ZIP Co de Phone Number [facility] [address] [place] [phone], [facility] [phone] * HEPATITIS B CORE ANTIBODY TOTAL (03/04/2024 4:13 PM DAG COATER) Pathologist [facility] HBc Antibody Total Non-reacti ve Non-reacti ve 03/04/2024 5:12 PM DAG COATER [facility] Blood BLOOD SPECIMEN / Unknown Lab Venipuncture / Unknown 03/04/2024 4:13 PM DAG COATER 03/04/2024 4:23 PM DAG COATER Cindy Garcia MD LAB - CHEMISTRY CHELI MONREAL [facility] [address] [address], [place] [phone] * HIV-1 HIV-2 ANTIBODY + HIV P24 AG PANEL (New on 08/24) (03/04/2024 4:13 PM DAG COATER) HIV Antigen/Antibod y 1 & 2 Non-reacti ve Non-react carlos 03/04/2024 5:12 PM DAG COATER [facility] Comment:No Laboratory eviden ce of HIV infection. Blood BLOOD SPECIMEN / Unknown Lab Venipuncture / Unknown 03/04/2024 4:13 PM DAG COATER 03/04/2024 4:23 PM DAG COATER Cindy Garcia MD LAB - CHEMISTRY CHELI MONREAL [address] [address], [place] [phone] * ERYTHROCYTE SEDIMENTATION RATE (03/04/2024 4:13 PM DAG COATER) Pathologist [facility] Erythrocyte Sedimentation Rate Westergren 14 0 - 20 MM/HR 03/04/2024 5:10 PM DAG COATER [facility] Blood BLOOD SPECIMEN / Unknown Lab Venipuncture / Unknown 03/04/2024 4:13 PM DAG COATER 03/04/2024 4:27 PM DAG COATER Cindy Garcia MD LAB - HEMATOLOGY ELI PENNY [address] [address], [place] [phone] * C-REACTIVE PROTEIN (03/04/2024 4:13 PM DAG COATER) C-Reactive Protein 0.5 <=0.5 mg/dL 03/04/2024 4:56 PM DAG COATER [facility] Blood BLOOD SPECIMEN / Unknown Lab Venipuncture / Unknown 03/04/2024 4:13 PM DAG COATER 03/04/2024 4:27 PM DAG COATER Cindy Garcia MD LAB - CHEMISTRY CHELI MONREAL [address] [address], [facility] [phone] * RHEUMATOID FACTOR BLOOD QUANTITATIVE (03/04/2024 4:13 PM DAG COATER) [facility] Rheumatoid Factor <15 <30 IU/mL 03/04/2024 4:57 PM DAG COATER [facility] Rheumatoid Factor Screen Negative Negative 03/04/2024 4:57 PM DAG COATER [facility] Blood BLOOD SPECIMEN / Unknown Lab Venipuncture / Unknown 03/04/2024 4:13 PM DAG COATER 03/04/2024 4:23 PM DAG COATER Cindy Garcia MD LAB - CHEMISTRY [place] Performing Organization Address City/[facility]/ZIP Co de Phone Number [address] [address], [facility] [phone] * MARLINE BLOOD SCREEN W/REFLEX TITER (03/04/2024 4:13 PM DAG COATER) [facility] MARLINE IgG None Detected None Detected 03/05/2024 11:42 PM DAG COATER [employer] ([facility]) Comment: If suspicion of connective tissue disease is strong and MARLINE EIA is negative, consider testing for MARLINE by IFA ([id number]). INTERPRETIVE INFORMATION: Anti-Nuclear Antibodies (MARLINE), IgG by TOÑA Antinuclear Antibodies (MALRINE), IgG by TOÑA: MARLINE specimens are screened using enzyme-linked immunosorbent assay (TOÑA) methodology. All TOÑA results reported as Detected are further tested by indirect fluorescent assay (IFA) using HEp-2 substrate with an IgG-specific conjugate. The MARLINE TOÑA screen is designed to detect antibodies against dsDNA, histones, SS-A (Ro), SS-B (La), Pimentel, Pimentel/PLASTERING SUPERVISOR, Scl-70, Mey-1, centromeric proteins, other antigens extracted from the HEp-2 cell nucleus. MARLINE TOÑA assays have been reported to have lower sensitivities than MARLINE IFA for systemic autoimmune rheumatic diseases (SARD). Negative results do not necessarily rule out SARD. Performed By: [employer] [address] [place] [address] Human Resources Admin: Uche Morley MD, PhD CLIA Number: [id number] Blood BLOOD SPECIMEN / Unknown Lab Venipuncture / Unknown 03/04/2024 4:13 PM DAG COATER 03/04/2024 4:23 PM DAG COATER Cindy Garcia MD LAB - CHEMISTRY CHELI MONREAL [facility]) [address] [place] [phone], [facility] * (ABNORMAL) FERRITIN (03/04/2024 4:13 PM DAG COATER) Ferritin 21(L) 22 - 275 ng/mL 03/04/2024 5:12 PM DAG COATER [facility] Blood BLOOD SPECIMEN / Unknown Lab Venipuncture / Unknown 03/04/2024 4:13 PM DAG COATER 03/04/2024 4:23 PM DAG COATER Cindy Garcia MD LAB - CHEMISTRY CHELI MONREAL Performing Organization Address [facility]/ZIP Co de Phone Number [address] [address], [place] [phone] * (ABNORMAL) IRON + TRANSFERRIN PANEL [w/Transferrin Sat % + TIBC] (03/04/2024 4:13 PM DAG COATER) Iron 31(L) 50 - 175 ug/dL 03/04/2024 4:53 PM DAG COATER [facility] Transferrin 257 174 - 382 mg/dL 03/04/2024 4:53 PM DAG COATER [facility] Transferrin Saturation % 10(L) 16 - 50 % 03/04/2024 4:53 PM DAG COATER [facility] TIBC Calculated 321 240 - 450 ug/dL 03/04/2024 4:53 PM DAG COATER [facility] Blood BLOOD SPECIMEN / Unknown Lab Venipuncture / Unknown 03/04/2024 4:13 PM DAG COATER 03/04/2024 4:23 PM DAG COATER Cindy Garcia MD LAB - CHEMISTRY CHELI MONREAL [address] [address], [place] [phone] * TSH REFLEX FREE T4 (03/04/2024 4:13 PM DAG COATER) TSH 0.961 0.350 - 4.940 uIU/mL 03/04/2024 5:29 PM DAG COATER [facility] Blood BLOOD SPECIMEN / Unknown Lab Venipuncture / Unknown 03/04/2024 4:13 PM DAG COATER 03/04/2024 4:27 PM DAG COATER Cindy Garcia MD LAB - CHEMISTRY CHELI MONREAL [facility] [address] [place] [address], [facility] [phone] * ZINC BLOOD (03/04/2024 4:13 PM DAG COATER) Zinc 62.4 60.0 - 120.0 ug/dL 03/06/2024 6:35 AM DAG COATER [employer] ([facility]) Comment: INTERPRETIVE INFORMATION: Zinc, Serum or Plasma [...] developed and its performance characteristics determined by [employer]. It has not been cleared or approved by the [place] Food and Drug Administration. This test was performed in a CLIA certified laboratory and is intended for clinical purposes. Performed By: [employer] [address] [place] [address] Human Resources Admin: Uche Morley MD, PhD CLIA Number: [id number] Blood BLOOD SPECIMEN / Unknown Lab Venipuncture / Unknown 03/04/2024 4:13 PM DAG COATER 03/04/2024 4:23 PM DAG COATER Cindy Garcia MD LAB - CHEMISTRY CHELI MONREAL Performing Organization Address City/[facility]/ZIP Co de Phone Number [facility] [employer] [facility]) [address] [place] [address] * COPPER BLOOD (03/04/2024 4:13 PM DAG COATER) Copper 108.5 70.0 - 140.0 ug/dL 03/06/2024 6:35 AM DAG COATER [facility] ([facility]) Comment: INTERPRETIVE INFORMATION: Copper, Serum or Plasma [...] developed and its performance characteristics determined by [employer]. It has not been cleared or approved by the US Food and Drug Administration. This test was performed in a CLIA certified laboratory and is intended for clinical purposes. Performed By: [facility] [employer] [address] [place] [address] Human Resources Admin: Uche Morley MD, PhD CLIA Number: [id number] Blood BLOOD SPECIMEN / Unknown Lab Venipuncture / Unknown 03/04/2024 4:13 PM DAG COATER 03/04/2024 4:23 PM DAG COATER Cindy Garcia MD LAB - CHEMISTRY CHELI MONREAL Performing Organization Address City/[facility]/ZIP Co de Phone Number [facility] ([facility]) [address] * FOLATE (03/04/2024 4:13 PM DAG COATER) Folate 17.7 7.0 - 31.4 ng/mL 03/04/2024 5:29 PM DAG COATER [facility] Blood BLOOD SPECIMEN / Unknown Lab Venipuncture / Unknown 03/04/2024 4:13 PM DAG COATER 03/04/2024 4:27 PM DAG COATER Cindy Garcia MD LAB - CHEMISTRY CHELI MONREAL [facility] [address] [place] [address], [facility] [phone] * VITAMIN B12 (03/04/2024 4:13 PM DAG COATER) Vitamin B12 524 213 - 816 pg/mL 03/04/2024 5:29 PM [facility] Blood BLOOD SPECIMEN / Unknown Lab Venipuncture / Unknown 03/04/2024 4:13 PM DAG COATER 03/04/2024 4:27 PM DAG COATER Cindy Garcia MD LAB - CHEMISTRY CHELI MONREAL Performing Organization Address [facility]/ZIP Co de Phone Number [address] [address], [facility] [phone] * (ABNORMAL) COMPREHENSIVE METABOLIC PANEL (03/04/2024 4:13 PM DAG COATER) BUN 14 7 - 26 mg/dL 03/04/2024 4:56 PM [facility] Creatinine 1.10 0.71 - 1.16 mg/dL 03/04/2024 4:56 PM [facility] Sodium 141 136 - 145 mmol/L 03/04/2024 4:56 PM [facility] Potassium 4.2 3.5 - 4.5 mmol/L 03/04/2024 4:56 PM [facility] Chloride 110(H) 98 - 107 mmol/L 03/04/2024 4:56 PM [facility] CO2 26 22 - 29 mmol/L 03/04/2024 4:56 PM [facility] Glucose 121(H) 70 - 99 mg/dL 03/04/2024 4:56 PM [facility] Calcium 9.6 8.4 - 10.2 mg/dL 03/04/2024 4:56 PM [facility] Protein Total 7.1 6.0 - 8.3 g/dL 03/04/2024 4:56 PM [facility] Albumin 3.8 3.4 - 5.0 g/dL 03/04/2024 4:56 PM [facility] Bilirubin Total 0.4 0.2 - 1.2 mg/dL 03/04/2024 4:56 PM [facility] Alkaline Phosphatase 130 40 - 150 U/L 03/04/2024 4:56 PM [facility] ALT 17 5 - 55 U/L 03/04/2024 4:56 PM [facility] AST 14 5 - 34 U/L 03/04/2024 4:56 PM [facility] Anion Gap 5(L) 6 - 16 03/04/2024 4:56 PM [facility] BUN/Creatinine Ratio 13 7 - 23 03/04/2024 4:56 PM [facility] Osmolality Calculated 294 275 - 295 mOsm/kg 03/04/2024 4:56 PM [facility] Albumin/Globulin Ratio 1.2 1.1 - 2.3 03/04/2024 4:56 PM [facility] eGFR by CKD-EPI 68(L) >=90 mL/min/1.7 3 m2 03/04/2024 4:56 PM [facility] Blood BLOOD SPECIMEN / Unknown Lab Venipuncture / Unknown 03/04/2024 4:13 PM DAG COATER 03/04/2024 4:27 PM [facility] Cindy Garcia MD LAB - CHEMISTRY CHELI MONREAL [facility] Organization Address City/State/[facility] Co de Phone Number [facility] [address] [place] [phone], [facility] [phone] * (ABNORMAL) CBC W/ DIFFERENTIAL (03/04/2024 4:13 PM DAG COATER) WBC 1.0(L) 4.0 - 10.7 x10E9/L 03/04/2024 5:03 PM [facility] RBC Count 4.39 4.30 - 5.80 x10E12/L 03/04/2024 5:03 PM [facility] Hemoglobin 12.5(L) 13.3 - 17.5 g/dL 03/04/2024 5:03 PM [facility] Hematocrit 38.8 38.7 - 51.1 % 03/04/2024 5:03 PM [facility] MCV 88.4 80.0 - 98.0 fL 03/04/2024 5:03 PM [facility] MCH 28.5 26.7 - 33.6 pg 03/04/2024 5:03 PM [facility] MCHC 32.2 31.7 - 36.3 g/dL 03/04/2024 5:03 PM [facility] RDW-CV 16.8(H) 11.3 - 14.8 % 03/04/2024 5:03 PM [facility] Platelet Count 110(L) 150 - 420 x10E9/L 03/04/2024 5:03 PM [facility] MPV 12.4(H) 7.8 - 11.4 fL 03/04/2024 5:03 PM [facility] Blood BLOOD SPECIMEN / Unknown Lab Venipuncture / Unknown 03/04/2024 4:13 PM DAG COATER 03/04/2024 4:27 PM DAG COATER Cindy Garcia MD LAB - HEMATOLOGY ORD ERABLES [facility] [address] [place] [address], [facility] [phone] documented in this encounter Visit Diagnoses Diagnosis Neutropenia, unspecified type (HCC)- Primary documented in this encounter Care Teams Industrial Paramedic Relationship Specialty Start Date End Date Timothy Banks MD [address] [place] [phone] PCP - General 10/19/18 documented as of this encounter
--- OUTSIDE RECORDS SUMMARY | 2024-04-09 17:26 | XMS_ITS | Encounter Summary ---
Author Organization [facility] Address [address] [place] [address] Care Team Providers Care Roofer Helper Vinyl Coating Name Role Phone Timothy Banks MD Primary Care Provider [phone] Reason for Visit * Reason Onset Date Comments Medication Prior Auth Request 03/14/2024 Encounter Details Date Type Department Care Team (Late st Contact Info) Description 03/14/2024 Telephone [facility] - Hematology/Oncology [address] [place] [address] Cindy Garcia MD [address] [place] [address] Medication Prior Auth Request Social [...] and heating? Not hard at all 03/13/2024 [facility] [place] of Occupat ional Health - Occupational Stress [...] any time in the past 12 m [facility], were you homeless or living in a [place] health care facility (including now)? No 03/13/2024 Sex and Gender Information Value Date Recorded Sex Assigned at Male 03/05/2024 8:04 AM SENIOR ANALYST DEVELOPER Gender Identity Male 03/05/2024 8:04 AM SENIOR ANALYST DEVELOPER Sexual Orientation Straight 03/05/2024 8: 04 AM SENIOR ANALYST DEVELOPER documented as of this encounter Functional Status [...] Encounter - Ryan Bolden CPhT - 03/14/2024 2:47 PM CST Medication Prior Authorization Medication: VENCLEXTA Status: Approved through 04/09/2024 Submitted via: [email or web address] Insurance: KANDI Outcome Approved today by [employer] NCPDP 2017 Your request has been approved Authorization Expiration Date: 04/09/2024 OR ANALYST DEVELOPER documented in this encounter Plan of Treatment Upcoming Encounters Date Type Department Care Team (Late st Contact Info) Description 04/11/2024 8:00 AM SENIOR ANALYST DEVELOPER Hospital Encounter [facility] [address] [place] [address] Cindy Garcia MD [address] [place] [address] 04/15/2024 8:30 AM SENIOR ANALYST DEVELOPER Hospital Encounter [facility] [address] [place] [address] 04/16/2024 9:00 AM SENIOR ANALYST DEVELOPER Hospital Encounter [facility] [address] [place] [address] 04/17/2024 8:30 AM SENIOR ANALYST DEVELOPER Appointment [facility] [address] [place] [address] 04/18/2024 9:30 AM SENIOR ANALYST DEVELOPER Appointment [facility] [address] [place] [address] 04/18/2024 10:30 AM SENIOR ANALYST DEVELOPER Office Visit [facility] - Hematology/Oncology [address] [place] [phone] Cindy Garcia MD [address] [place] [phone] 04/19/2024 9:00 AM SENIOR ANALYST DEVELOPER Appointment [facility] [address] [place] [address] 05/13/2024 9:00 AM SENIOR ANALYST DEVELOPER Appointment [facility] [address] [place] [phone] documented as of this encounter Visit Diagnoses Not on filedocumented in this encounter Care Teams Roofer Helper Vinyl Coating Relationship Specialty Start Date End Date Timothy Banks MD [address] [place] [address] PCP - General 10/19/18 documented as of this encounter
--- OUTSIDE RECORDS SUMMARY | 2024-04-09 17:26 | XMS_ITS | Encounter Summary ---
Author Organization [facility] Address [address] [place] [address] Care Team Providers Care Career And Transition Teacher Name Role Phone Timothy Banks MD Primary Care Provider [phone] Cindy Garcia MD Unavailable Encounter Details Date Type Department Care Team (Late st Contact Info) Description 04/01/2024 Orders Only [facility] [address] [place] [address] Cindy Garcia MD [address] [place] [address] 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) Social History Tobacco Use Types Packs/Day [...] and heating? Not hard at all 03/13/2024 [facility] of Occupat ional Health - Occupational Stress [...] time in the past 12 m [facility], were you homeless or living in a custodial (including now)? No 03/13/2024 Sex and Gender Information Value Date Recorded Sex Assigned at Male 03/05/2024 8:04 AM RN CRITICAL CARE Gender Identity Male 03/05/2024 8:04 AM RN CRITICAL CARE Sexual Orientation Straight 03/05/2024 8: 04 AM RN CRITICAL CARE documented as of this encounter Functional Status [...] st Contact Info) Description 04/11/2024 8:00 AM RN CRITICAL CARE Hospital Encounter [facility] [address] [place] [address] Cindy Garcia MD [address] [place] [address] 04/15/2024 8:30 AM RN CRITICAL CARE Hospital Encounter [facility] [address] [place] [address] 04/16/2024 9:00 AM RN CRITICAL CARE Hospital Encounter [facility] [address] [place] [address] 04/17/2024 8:30 AM RN CRITICAL CARE Appointment [facility] [address] [place] [phone] 04/18/2024 9:30 AM RN CRITICAL CARE Appointment [facility] [address] [place] [address] 04/18/2024 10:30 AM RN CRITICAL CARE Office Visit [facility] - Hematology/Oncology [address] [place] [phone] Cnidy Garcia MD [address] [place] [address] 04/19/2024 9:00 AM RN CRITICAL CARE Appointment [facility] [address] [place] [address] 05/13/2024 9:00 AM RN CRITICAL CARE Appointment [facility] [address] [place] [phone] documented as of this encounter Results * MAGNESIUM BLOOD (04/01/2024 3:12 PM RN CRITICAL CARE) [facility] Magnesium 2.1 1.6 - 2.6 mg/dL 04/01/2024 4:25 PM RN CRITICAL CARE [facility] Comment:Hemolysis detected i n this specimen. Hemolysis is known to cause elevations in this analyte. Caution should be exercised in the interpretation of this result. Recommend repeat testing if clinically indicated. Blood BLOOD SPECIMEN / Unknown Lab Venipuncture / Unknown 04/01/2024 3:12 PM RN CRITICAL CARE 04/01/2024 3:36 PM RN CRITICAL CARE Cindy Garcia MD LAB - CHEMISTRY CHELI MONREAL Performing Organization Address [facility]/State/ZIP Co de Phone Number [facility] [address] [place], [place] [id number], [facility] [phone] * ERYTHROPOIETIN (04/01/2024 3:12 PM RN CRITICAL CARE) Erythropoietin 22 4 - 27 mU/mL 04/02/2024 11:36 AM RN CRITICAL CARE [facility] ([facility]) Comment: INTERPRETIVE INFORMATION: Erythropoietin Normal serum [...] may benefit from therapy with recombinant EPO ([facility] [id number],1989). Performed By: [facility] [address] [place] [address] Gas Distribution And Emergency Clerk: Uche Morley MD, PhD CLIA Number: [id number] Blood BLOOD SPECIMEN / Unknown Lab Venipuncture / Unknown 04/01/2024 3:12 PM RN CRITICAL CARE 04/01/2024 3:22 PM RN CRITICAL CARE Cindy Garcia MD LAB - CHEMISTRY CHELI MONREAL [employer] [facility]) [address] [place] [address], [facility] * SOLUBLE TRANSFERRIN RECEPTOR (04/01/2024 3:12 PM RN CRITICAL CARE) [facility] Soluble Transferrin Receptor 3.3 2.2 - 5.0 mg/L 04/02/2024 9:13 PM RN CRITICAL CARE [employer] ([facility]) Comment: INTERPRETIVE INFORMATION: Soluble Transferrin Receptor [...] ??High ? Normal ? High Performed By: [facility] [address] [place] [address] [employer] Distribution And Emergency Clerk: Uche Morley MD, PhD CLIA Number: [id number] Blood BLOOD SPECIMEN / Unknown Lab Venipuncture / Unknown 04/01/2024 3:12 PM RN CRITICAL CARE 04/01/2024 3:22 PM RN CRITICAL CARE Cindy Garcia MD LAB - CHEMISTRY CHELI MONREAL [facility] ([facility]) [address] [place] [address], [facility] * (ABNORMAL) COMPREHENSIVE METABOLIC PANEL (04/01/2024 3:12 PM RN CRITICAL CARE) [facility] BUN 16 7 - 26 mg/dL 04/01/2024 4:25 PM [facility] Creatinine 1.28(H) 0.71 - 1.16 mg/dL 04/01/2024 4:25 PM [facility] Sodium 140 136 - 145 mmol/L 04/01/2024 4:25 PM [facility] Potassium 4.2 3.5 - 4.5 mmol/L 04/01/2024 4:25 PM [facility] Comment:Hemolysis detected i n this specimen. Hemolysis may cause false elevations in potassium leading to pseudohyperkalemia or masked hypokalemia. Recommend repeat testing if clinically indicated. Chloride 107 98 - 107 mmol/L 04/01/2024 4:25 PM [facility] CO2 25 22 - 29 mmol/L 04/01/2024 4:25 PM [facility] Glucose 106(H) 70 - 99 mg/dL 04/01/2024 4:25 PM [facility] Calcium 9.2 8.4 - 10.2 mg/dL 04/01/2024 4:25 PM [facility] Protein Total 7.1 6.0 - 8.3 g/dL 04/01/2024 4:25 PM [facility] Comment:Hemolysis detected i n this specimen. Hemolysis is known to cause elevations in this analyte. Caution should be exercised in the interpretation of this result. Recommend repeat testing if clinically indicated. Albumin 3.8 3.4 - 5.0 g/dL 04/01/2024 4:25 PM [facility] Bilirubin Total 0.7 0.2 - 1.2 mg/dL 04/01/2024 4:25 PM [facility] Alkaline Phosphatase 115 40 - 150 U/L 04/01/2024 4:25 PM [facility] ALT 34 5 - 55 U/L 04/01/2024 4:25 PM [facility] AST 30 5 - 34 U/L 04/01/2024 4:25 PM [facility] Comment:Hemolysis detected i n this specimen. Hemolysis is known to cause elevations in this analyte. Caution should be exercised in the interpretation of this result. Recommend repeat testing if clinically indicated. Anion Gap 8 6 - 16 04/01/2024 4:25 PM [facility] BUN/Creatinine Ratio 13 - 03/11 4:25 PM [facility] Osmolality Calculated 292 275 - 295 mOsm/kg 04/01/2024 4:25 PM [facility] Albumin/Globulin Ratio 1.2 1.1 - 2.3 04/01/2024 4:25 PM [facility] eGFR by CKD-EPI 57(L) >=90 mL/min/1 .73 m2 04/01/2024 4:25 PM [facility] Blood BLOOD SPECIMEN / Unknown Lab Venipuncture / Unknown 04/01/2024 3:12 PM RN CRITICAL CARE 04/01/2024 3:36 PM RN CRITICAL CARE Cindy Garcia MD LAB - CHEMISTRY CHELI MONREAL [facility] [address] [place] [address], [facility] [phone] * (ABNORMAL) CBC W/ DIFFERENTIAL (04/01/2024 3:12 PM RN CRITICAL CARE) WBC 0.8(LL) 4.0 - 10.7 x10E9/L 04/01/2024 5:17 PM [facility] RBC Count 4.17(L) 4.30 - 5.80 x10E12/L 04/01/2024 5:17 PM [facility] Hemoglobin 11.8(L) 13.3 - 17.5 g/dL 04/01/2024 5:17 PM [facility] Hematocrit 37.3(L) 38.7 - 51.1 % 04/01/2024 5:17 PM [facility] MCV 89.4 80.0 - 98.0 fL 04/01/2024 5:17 PM [facility] MCH 28.3 26.7 - 33.6 pg 04/01/2024 5:17 PM [facility] MCHC 31.6(L) 31.7 - 36.3 g/dL 04/01/2024 5:17 PM [facility] RDW-CV 17.3(H) 11.3 - 14.8 % 04/01/2024 5:17 PM [facility] Platelet Count 78(L) 150 - 420 x10E9/L 04/01/2024 5:17 PM RN CRITICAL CARE [facility] MPV 10.8 7.8 - 11.4 fL 04/01/2024 5:17 PM RN CRITICAL CARE [facility] Blood BLOOD SPECIMEN / Unknown Lab Venipuncture / Unknown 04/01/2024 3:12 PM RN CRITICAL CARE 04/01/2024 3:36 PM RN CRITICAL CARE Cindy Garcia MD LAB - HEMATOLOGY ORD ERABLES [facility] [address] [place] [address] [phone] documented in this encounter Visit Diagnoses Diagnosis 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)- Primary documented in this encounter Care Teams Career And Transition Teacher Relationship Specialty Start Date End Date Timothy Banks MD [address] [place] [address] PCP - General 10/19/18 Cindy Garcia MD [address] [place] [address] Shirring Tender/Oncologis t Hematology and Oncology 03/24/24 documented as of this encounter
--- OUTSIDE RECORDS SUMMARY | 2024-04-09 17:26 | XMS_ITS | Encounter Summary ---
Author Organization [facility] Address [address] [facility] [place] [address] Care Team Providers Care Ladle Liner Name Role Phone Timothy Banks MD Primary Care Provider [phone] Encounter Details Date Type Department Care Team (Late st Contact Info) Description 03/13/2024 Orders Only [facility] [address] [place] [address] Cindy Garcia MD [address] [place] [address] Social History Tobacco Use Types Packs/Day Years [...] and heating? Not hard at all 03/13/2024 [facility] of Occupat ional Health - Occupational Stress [...] time in the past 12 m [facility], were you homeless or living in a long-term (including now)? No 03/13/2024 Sex and Gender Information Value Date Recorded Sex Assigned at Male 03/05/2024 8:04 AM PAEDODONTIST Gender Identity Male 03/05/2024 8:04 AM PAEDODONTIST Sexual Orientation Straight 03/05/2024 8: 04 AM PAEDODONTIST documented as of this encounter Plan of Treatment Upcoming Encounters Date Type Department Care Team (Late st Contact Info) Description 04/11/2024 8:00 AM PAEDODONTIST Hospital Encounter [facility] [address] [place] [address] Cindy Garcia MD [address] [place] [address] 04/15/2024 8:30 AM PAEDODONTIST Hospital Encounter [facility] [address] [place] [address] 04/16/2024 9:00 AM PAEDODONTIST Hospital Encounter [facility] [address] [place] [address] 04/17/2024 8:30 AM PAEDODONTIST Appointment [facility] [address] [place] [phone] 04/18/2024 9:30 AM PAEDODONTIST Appointment [facility] [address] [place] [phone] 04/18/2024 10:30 AM PAEDODONTIST Office Visit [facility] - Hematology/Oncology [address] [place] [phone] Cindy Garcia MD [address] [place] [address] 04/19/2024 9:00 AM PAEDODONTIST Appointment [facility] [address] [place] [address] 05/13/2024 9:00 AM PAEDODONTIST Appointment [facility] [address] [place] [address] documented as of this encounter Visit Diagnoses Not on filedocumented in this encounter Care Teams Ladle Liner Relationship Specialty Start Date End Date Timothy Banks MD [address] [place] [address] PCP - General 10/19/18 documented as of this encounter
--- OUTSIDE RECORDS SUMMARY | 2024-04-09 17:26 | XMS_ITS | Encounter Summary ---
Author Organization [facility] Address [address] [place] [address] Care Team Providers Care Ibm Bpm Architect Name Role Phone Timothy Banks MD Primary Care Provider [phone] Cindy Ambriz MD Unavailable Reason for Referral * Radiology Services (Routine) - Authorized Specialty Diagnoses / Procedures Referred By Contac t Referred To Contact Interventional Radiology Diagnoses 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) Procedures IR Tim Cath Insert Cindy Ambriz MD [address] [place] [address] Referral ID Status Reason Start Date Expiration Date V isits Requested Visits Authorized [id number] Authorized 04/01/2024 04/01/2025 1 1 ER OPERATOR TILE * OP/Amb RFL Auth (Routine) - Open Specialty Diagnoses / Procedures Referred By Contshakila t Referred To Contact Cardiology Diagnoses 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) Procedures EKG 12-LEAD - HOSPITAL PERFORMED Cindy Ambriz MD [address] [place] [address] [facility] Ekg/Holter [address] [place] [address] Referral ID Status Reason Start Date Expiration Date Visits Re quested Visits Authorized [id number] Open 04/01/2024 04/01/2025 1 1 ER OPERATOR TILE Reason for Visit * Consult, Test & Treat (Routine) - Open Specialty Diagnoses / Procedures Referred By Contac t Referred To Contact Hematology and Oncology / Oncology-Medical Diagnoses Acute myeloid leukemia with multilineage dysplasia, 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) Timothy Banks MD [address] [place] [address] Cindy Ambriz MD [address] [place] [address] Referral ID Status Reason Start Date Expiration Date Visits Re quested Visits Authorized [id number] Open 04/01/2024 04/01/2025 99 99 Encounter Details Date Type Department Care Team (Late st Contact Info) Description 04/01/2024 2:00 PM CUTTER OPERATOR TILE Office Visit [facility] - Hematology/Oncology [address] [place] [phone] Cindy Ambriz MD [address] [place] [address] 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) Social History Tobacco Use [...] and heating? Not hard at all 03/13/2024 [facility] [place] of Occupat ional Health - Occupational Stress [...] any time in the past 12 m [facility], were you homeless or living in a nursing home (including now)? No 03/13/2024 Sex and Gender Information Value Date Recorded Sex Assigned at Male 03/05/2024 8:04 AM CUTTER OPERATOR TILE Gender Identity Male 03/05/2024 8:04 AM CUTTER OPERATOR TILE Sexual Orientation Straight 03/05/2024 8: 04 AM CUTTER OPERATOR TILE documented as of this encounter Last Filed Vital Signs Vital Sign Reading Time Taken Comments Blood Pressure 127/67 04/01/2024 1:56 PM CUTTER OPERATOR TILE Pulse 66 04/01/2024 1:56 PM CUTTER OPERATOR TILE Temperature 36.7 ??C (98.1 ??F) 04/01/2024 1:56 PM CS T Respiratory Rate 18 04/01/2024 1:56 PM CUTTER OPERATOR TILE Oxygen Saturation 99% 04/01/2024 1:56 PM CUTTER OPERATOR TILE Inhaled Oxygen Concentration - - Weight 99 kg (218 lb 4.8 oz) 04/01/2024 1:56 PM CUTTER OPERATOR TILE Height - - Body Mass Index 29.61 03/15/2024 12:17 PM CUTTER OPERATOR TILE documented in this encounter Functional Status Functional Status Response [...] No 03/13/2024 documented as of this encounter Progress Notes * Cindy Ambriz MD - 04/02/2024 2:16 AM CST Dx: AML HPI: 78yo M who was diagnosed with [...] neutropenia. Discharged with a WBC of 18.8. WBC decreased back down to 1.2 at which time marrow was performed, showing 30% myeloblasts by morphology with mild trilineagea dyspoiesis, hypercellular bone marrow (70-80%), absent iron stores, patchy and mild increase in reticulin fibrosis MF-1. However this was though to be due to possible growth factor effect. Repeat marrow confirmed AML and he was started on decitabine/venetoclax in-house. Interval history: Notes fatigue and poor appetite. 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 Normal karyotype (though few metaphase cells) and FISH. MMP + IDH1, DNMT3A x2, Jak2, STAG2, BCOR x2, CEBPA, and CUX1. Plan for 2C HMA/Diogenes with 2nd cycle reduced dose Diogenes to 21 days followed by bmbx. If does not respond, consider IDH1 inhibition. Access: -scheduled for port placement All: -no current issues Cardiac: -EF: hypertensive LVH, mild left atrial enlargement, mild mitral/aortic/tricuspid regurgitation, diastolic dysfunction; started Lasix prn for LE edema (attn to elytes) -EKG: PVCs, RBBB, SVT, EP consult, consideration for ablation; to obtain regular EKGs to check QTc -lipids: check at next visit -HTN: cardizem -keep goal hgb perhaps higher? -known CAD Coag: -hx blood clots, on Eliquis -2004: DVT/PE following hiatal hernia repair s/p [place] filter placement; warfarin x6 mos -2005: RLE DVT after warfarin discontinuation-->warfarin restarted -2012: LLE DVT occurred after re-initiation of warfarin after holding for a SBO (believed to be 2/2viral gastroenteritis); treated with NG tube placement and NPO; received lovenox in the hospital-->1-2 days after resuming warfarin, noticed RLE pain-->recurrent RLE clot-->switched to Eliquis BIG -had been on Eliquis 5mg bid with discussions to drop to 2.5mg bid after travels -will need to hold for TCP Dental: -advised regular eval, ?abx ppx -son is his dentist Derm: -no current issues Endo: -tsh/t4 wnl -on vitamin D supplementation ENT: -occasional nosebleeds w/cpap use-->coags wnl GI/liver/panc/biliary: -GERD: on prevacid -diverticulitis -liver: wnl -panc: no issues -biliary: no issues -n/v: none -c/d: none /gyne/fertility: -no current issues Hematinics: -B12: normal -folate: on folic acid, normal -Cu wnl -Zn wnl ID: -G: recent growth factor use; advised to abstain -ppx abx: on levo, posa, and valtrex -vaccinations: due for covid (declines), flu (up to date), rsv, pneumonia -viral hep: HCV neg; HBV non-immune-->to be immunized as long as plts ok -hiv: neg -quantiferon -PJP ppx: not indicated -avoid nsaids/apap Iron: -low ferritin, iron, iron sat, absent iron stores on marrow although normal MCV (mixed picture), microcytosis -GI eval + iron replacement -soluble transferrin receptor-->obtain at next visit -declines endoscopic evaluation; avoid during periods of neutropenia/thrombocytopenia Neuro: -neuropathy worked up extensively -consider 2/2 recurrent LE DVT's Nutrition: -poor appetite-->advised to try Ensure/Boost/etc -denies dysguesia -weight: attn Ophtho -?glaucoma-->on eye gtt -hx cataracts Pulm: -copd: albuterol, symbicort -qamar: cpap Psych: -no current issues Psychosocial/financial: -no current issues PT/OT: -no current issues Renal/electrolytes/acid-base: -CKD stage III -noted GOLDY (also when hospitalized, though uric acid normalized now)-->advised to receive 1L NS) -can check epo at next visit -tls: c/w allopurinol -elytes: wnl -g6pd: check Rheum/: -neg w/u, performed for neutropenia, both at [facility] and at [facility] Code status: not addressed at this visit Dispo: 04/15 for C2 ER OPERATOR TILE documented in this encounter Miscellaneous Notes * Addendum Note - Cindy Ambriz MD - 04/02/2024 12:43 PM CSTAddended by: CINDY AMBRIZ on: 04/02/2024 12:43 PM Modules accepted: Orders ER OPERATOR TILE documented in this encounter Plan of Treatment Upcoming Encounters Date Type Department Care Team (Late st Contact Info) Description 04/11/2024 8:00 AM CUTTER OPERATOR TILE Hospital Encounter [facility] [address] [place] [phone] Cindy Ambriz MD [address] [place] [phone] 04/15/2024 8:30 AM CUTTER OPERATOR TILE Hospital Encounter [facility] [address] [place] [phone] 04/16/2024 9:00 AM CUTTER OPERATOR TILE Hospital Encounter [facility] [address] [place] [phone] 04/17/2024 8:30 AM CUTTER OPERATOR TILE Appointment [facility] [address] [place] [phone] 04/18/2024 9:30 AM CUTTER OPERATOR TILE Appointment [facility] [address] [place] [phone] 04/18/2024 10:30 AM CUTTER OPERATOR TILE Office Visit [facility] - Hematology/Oncology [address] [place] [phone] Cindy Ambriz MD [address] [place] [phone] 04/19/2024 9:00 AM CUTTER OPERATOR TILE Appointment [facility] [address] [place] [phone] 05/13/2024 9:00 AM CUTTER OPERATOR TILE Appointment [facility] [address] [place] [phone] Scheduled Orders Name Type Priority Associated Diagnoses Orde r Schedule EKG 12-LEAD - HOSPITAL PERFORMED ECG Routine 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) 1 Occurrences starting 04/01/2024 until 04/01/2025 IR Tim Cath Insert Imaging Routine 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) 1 Occurrences starting 04/01/2024 until 04/01/2025 QUANTIFERON TB GOLD PLUS 4 TUBE (CLIENT INCUBATED) Lab Routine 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) Ordered: 04/02/2024 documented as of this encounter Visit Diagnoses Diagnosis 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)- Primary documented in this encounter Care Teams Ibm Bpm Architect Relationship Specialty Start Date End Date Timothy Banks MD [address] [place] [address] PCP - General 10/19/18 Cindy Ambriz MD [address] [place] [address] Lead Assistant Manager/Oncologis t Hematology and Oncology 03/24/24 documented as of this encounter
--- OUTSIDE RECORDS SUMMARY | 2024-04-09 17:26 | XMS_ITS | Encounter Summary ---
Author Organization [facility] Address [address] [place] [address] Care Team Providers Care Facility Designer Name Role Phone Timothy Banks MD Primary Care Provider [phone] Reason for Visit * Reason Onset Date Comments Medication Prior Auth Request 03/13/2024 Encounter Details Date Type Department Care Team (Late st Contact Info) Description 03/13/2024 Telephone [facility] [address] [place] [address] Cindy Garcia MD [address] [place] [address] Medication Prior Auth Request Social [...] and heating? Not hard at all 03/13/2024 [facility] [place] of Occupat ional Health - Occupational Stress [...] [facility] in the [facility] were [facility] or living in a chcf (including now)? No 03/13/2024 Sex and Gender Information Value Date Recorded Sex Assigned at Male 03/05/2024 8:04 AM IGNITER CAPPER Gender Identity Male 03/05/2024 8:04 AM IGNITER CAPPER Sexual Orientation Straight 03/05/2024 8: 04 AM IGNITER CAPPER documented as of this encounter Miscellaneous Notes * Telephone Encounter - Ryan Bolden CPhT - 03/13/2024 2:35 PM CST Medication Prior Authorization Medication: POSACONAZOLE Status: Submitted - Pending Submitted via: Cover My Meds ([place]:[email or web address]) Insurance: [employer] Helpdesk: [phone] TER CAPPER documented in this encounter Plan of Treatment Upcoming Encounters Date Type Department Care Team (Late st Contact Info) Description 04/11/2024 8:00 AM IGNITER CAPPER Hospital Encounter [facility] [address] [place] [address] Cindy Garcia MD [address] [place] [phone] 04/15/2024 8:30 AM IGNITER CAPPER Hospital Encounter [facility] [address] [place] [phone] 04/16/2024 9:00 AM IGNITER CAPPER Hospital Encounter [facility] [address] [place] [phone] 04/17/2024 8:30 AM IGNITER CAPPER Appointment [facility] [address] [place] [phone] 04/18/2024 9:30 AM IGNITER CAPPER Appointment [facility] [address] [place] [phone] 04/18/2024 10:30 AM IGNITER CAPPER Office Visit [facility] - Hematology/Oncology [address] [place] [phone] Cindy Garcia MD [address] [place] [phone] 04/19/2024 9:00 AM IGNITER CAPPER Appointment [facility] [address] [place] [phone] 05/13/2024 9:00 AM IGNITER CAPPER Appointment [facility] [address] [place] [phone] documented as of this encounter Visit Diagnoses Not on filedocumented in this encounter Care Teams Facility Designer Relationship Specialty Start Date End Date Timothy Banks MD [address] [place] [address] PCP - General 10/19/18 documented as of this encounter
--- OUTSIDE RECORDS SUMMARY | 2024-04-09 17:26 | XMS_ITS | Encounter Summary ---
Author Organization [facility] Address [address] [facility] [place] [address] Care Team Providers Care Health Psychologist Name Role Phone Timothy Banks MD Primary Care Provider [phone] Cindy Garcia MD Unavailable Reason for Visit * Reason Onset Date Comments Transitional Care 03/25/2024 Encounter Details Date Type Department Care Team (Late st Contact Info) Description 03/25/2024 Telephone Transitional Care at [address] [address] Adamaris Jesus, site surveyor Social History Tobacco Use Types Packs/Day Years [...] and heating? Not hard at all 03/13/2024 [facility] [place] of Occupat ional Health - Occupational Stress [...] any time in the past 12 m [facility], were you homeless or living in a retirement (including now)? No 03/13/2024 Sex and Gender Information Value Date Recorded Sex Assigned at Male 03/05/2024 8:04 AM SEWER Gender Identity Male 03/05/2024 8:04 AM SEWER Sexual Orientation Straight 03/05/2024 8: 04 AM SEWER documented as of this encounter Functional Status [...] encounter Miscellaneous Notes * Telephone Encounter - Adamaris Jesus RN - 03/25/2024 11:46 AM CST RN 48 hour post discharge follow-up contact by telephone: Patient with recent IP discharge from [facility] on 03/23/2024 . This RN contacted Russ by telephone [phone] to complete 48 hour post- discharge follow-up contact for [facility] appointment. 1) How are you feeling? Patient is doing ok but feels he is having some chills. 2) How is your mobility? Patient is moving ok 3) New concerns or problems? no 4) Have you had to go the ER for any reason? no 5) Any questions about your discharge diagnosis and instructions? no 6) Do you have a follow up appointment made? Patient declined BRID[facility] appt he sees oncologist 04/01 and wants to wait until this appt to see if he needs additional follow ups, also patient does not live close to here. 7) Do you currently have home health, any questions about home care? no 8) Have you filled all of your RX's? yes 9) Any questions or concerns that we can help you with? no 10) Do you have transportation for this appointment? yes Russ denied any questions related to diet, medications, or condition at this time. Patient was encouraged to call this sports book writer with questions, concerns, barriers to care, and/or additional resourcesif needed. Patient verbalized understanding and agreement with plan. This RN will continue to provide post- discharge monitoring until patient completes [facility] clinic follow up. Call Duration: 10 min Adamaris Jesus RN, [facility] Office: [phone] 03/25/2024 R documented in this encounter Plan of Treatment Upcoming Encounters Date Type Department Care Team (Late st Contact Info) Description 04/11/2024 8:00 AM SEWER Hospital Encounter [facility] [address] [place] [address] Cindy Garcia MD [facility] [place] [address] 04/15/2024 8:30 AM SEWER Hospital Encounter [facility] [address] [place] [phone] 04/16/2024 9:00 AM SEWER Hospital Encounter [facility] [address] [place] [phone] 04/17/2024 8:30 AM SEWER Appointment [facility] [address] [place] [phone] 04/18/2024 9:30 AM SEWER Appointment [facility] [address] [place] [phone] 04/18/2024 10:30 AM SEWER Office Visit [facility] - Hematology/Oncology [address] [place] [phone] Cindy Garcia MD [address] [place] [phone] 04/19/2024 9:00 AM SEWER Appointment [facility] [address] [place] [phone] 05/13/2024 9:00 AM SEWER Appointment [facility] [address] [place] [phone] documented as of this encounter Visit Diagnoses Not on filedocumented in this encounter Care Teams Health Psychologist Relationship Specialty Start Date End Date Timothy Banks MD [address] [place] [phone] PCP - General 10/19/18 Cindy Garcia MD [address] [place] [phone] Dev Ops Engineer/Oncologis t Hematology and Oncology 03/24/24 documented as of this encounter
--- OUTSIDE RECORDS SUMMARY | 2024-04-09 17:26 | XMS_ITS | Encounter Summary ---
Author Organization [facility] Address [address] [facility] [place] [address] Care Team Providers Care Pipe Bender Name Role Phone Timothy Banks MD Primary Care Provider [phone] Encounter Details Date Type Department Care Team (Latest Contact Info) Description 03/04/2024 Travel Social History Tobacco Use Types Packs/Day Years Used Date Smoking Tobacco: Never Assessed Sex and Gender Information Value Date Recorded Sex Assigned at Male 03/05/2024 8:04 AM SALES PLANNER Gender Identity Male 03/05/2024 8:04 AM SALES PLANNER Sexual Orientation Straight 03/05/2024 8: 04 AM SALES PLANNER documented as of this encounter Plan of Treatment Upcoming Encounters Date Type Department Care Team (Late st Contact Info) Description 04/11/2024 8:00 AM SALES PLANNER Hospital Encounter [facility] [address] [place] [address] Cindy Garcia MD [address] [place] [phone] 04/15/2024 8:30 AM SALES PLANNER Hospital Encounter [facility] [address] [place] [phone] 04/16/2024 9:00 AM SALES PLANNER Hospital Encounter [facility] [address] [place] [phone] 04/17/2024 8:30 AM SALES PLANNER Appointment [facility] [address] [place] [phone] 04/18/2024 9:30 AM SALES PLANNER Appointment [facility] [address] [place] [phone] 04/18/2024 10:30 AM SALES PLANNER [facility] [address] [place] [phone] Cindy Garcia MD [address] [place] [phone] 04/19/2024 9:00 AM SALES PLANNER Appointment [facility] [address] [place] [phone] 05/13/2024 9:00 AM SALES PLANNER Appointment [facility] [address] [place] [phone] documented as of this encounter Visit Diagnoses Not on filedocumented in this encounter Care Teams Pipe Bender Relationship Specialty Start Date End Date Timothy Banks MD [address] [place] [phone] PCP - General 10/19/18 documented as of this encounter
--- OUTSIDE RECORDS SUMMARY | 2024-04-09 17:26 | XMS_ITS | Encounter Summary ---
Author Organization [facility] Address [address] [place] [address] Care Team Providers Care Mechanism Assembler Name Role Phone Timothy Banks MD Primary Care Provider [phone] Reason for Referral * (Routine) - Pending Review Specialty Diagnoses / Procedures Referred By Contac t Referred To Contact Diagnoses MDS (myelodysplastic syndrome) (HCC) Procedures BCR-ABL1 CML+AML PCR QUANT Cindy Patel MD [address] [place] [address] Referral ID Status Reason Start Date Expiration Date V isits Requested Visits Authorized [id number] Pending Review 03/04/2024 03/04/2025 1 1 ALAI PLAYER * (Routine) - Pending Review Specialty Diagnoses / Procedures Referred By Contac t Referred To Contact Diagnoses MDS (myelodysplastic syndrome) (HCC) Procedures BCR-ABL1 CML+AML PCR QUANT Cindy Patel MD [address] [place] [address] Referral ID Status Reason Start Date Expiration Date V isits Requested Visits Authorized [id number] Pending Review 03/04/2024 03/04/2025 1 1 ALAI PLAYER Reason for Visit * (Routine) - Pending Review Specialty Diagnoses / Procedures Referred By Contac t Referred To Contact Diagnoses MDS (myelodysplastic syndrome) (HCC) Procedures BCR-ABL1 CML+AML PCR QUANT PNL Cindy Garcia MD [facility] [place] [address] Referral ID Status Reason Start Date Expiration Date V isits Requested Visits Authorized [id number] Pending Review 03/04/2024 03/04/2025 1 1 Encounter Details Date Type Department Care Team (Latest Contact Info) Description 03/04/2024 3:35 PM JAI ALAI PLAYER - 03/04/2024 11:59 PM JAI ALAI PLAYER Hospital Encounter [facility] [address] [place] [address], [address] [place] [address] Discharge Disposition: Home or Self Care Social History Tobacco Use Types Packs/Day Years Used Date Smoking Tobacco: Never Assessed Sex and Gender Information Value Date Recorded Sex Assigned at Male 03/05/2024 8:04 AM JAI ALAI PLAYER Gender Identity Male 03/05/2024 8:04 AM JAI ALAI PLAYER Sexual Orientation Straight 03/05/2024 8: 04 AM JAI ALAI PLAYER documented as of this encounter Plan of Treatment Upcoming Encounters Date Type Department Care Team (Late st Contact Info) Description 04/11/2024 8:00 AM JAI ALAI PLAYER Hospital Encounter [facility] [address] [place] [address] Cindy Garcia MD [address] [place] [address] 04/15/2024 8:30 AM JAI ALAI PLAYER Hospital Encounter [facility] [address] [place] [address] 04/16/2024 9:00 AM JAI ALAI PLAYER Hospital Encounter [facility] [address] [place] [address] 04/17/2024 8:30 AM JAI ALAI PLAYER Appointment [facility] [address] [place] [address] 04/18/2024 9:30 AM JAI ALAI PLAYER Appointment [facility] [address] [place] [address] 04/18/2024 10:30 AM JAI ALAI PLAYER Office Visit [facility] - Hematology/Oncology [address] [place] [phone] [place] [address] [place] [address] 04/19/2024 9:00 AM JAI ALAI PLAYER Appointment [facility] [address] [place] [phone] 05/13/2024 9:00 AM JAI ALAI PLAYER Appointment [facility] [address] [place] [phone] Pending Results Name Type Priority Associated Diagnoses Date /Time HLA TYPING DNA HIGH RES Blood Bank Routine MDS (myelodysplastic syndrome) ([facility]) 03/04/2024 4:13 PM JAI ALAI PLAYER HLA TYPING DNA LOW RESOLUTION A,B,C Blood Bank Routine MDS (myelodysplastic syndrome) ([facility]) 03/04/2024 4:13 PM JAI ALAI PLAYER HLA TYPING DNA LOW RESOLUTION DR,DQ Blood Bank Routine MDS (myelodysplastic syndrome) ([facility]) 03/04/2024 4:13 PM JAI ALAI PLAYER HLA TYPING DNA HIGH RESOLUTION A Blood Bank Routine MDS (myelodysplastic syndrome) ([facility]) 03/04/2024 4:13 PM JAI ALAI PLAYER HLA TYPING DNA HIGH RESOLUTION DQ Blood Bank Routine MDS (myelodysplastic syndrome) ([facility]) 03/04/2024 4:13 PM JAI ALAI PLAYER HLA TYPING DNA HIGH RESOLUTION C Blood Bank Routine MDS (myelodysplastic syndrome) ([facility]) 03/04/2024 4:13 PM JAI ALAI PLAYER HLA TYPING DNA HIGH RESOLUTION B Blood Bank Routine MDS (myelodysplastic syndrome) ([facility]) 03/04/2024 4:13 PM JAI ALAI PLAYER HLA TYPING DNA HIGH RESOLUTION DR Blood Bank Routine MDS (myelodysplastic syndrome) ([facility]) 03/04/2024 4:13 PM JAI ALAI PLAYER HLA TYPING LOW/HIGH RESOLUTION DPB1 Blood Bank Routine MDS (myelodysplastic syndrome) ([facility]) 03/04/2024 4:13 PM JAI ALAI PLAYER Scheduled Orders Name Type Priority Associated Diagnoses Orde r Schedule HLA TYPING DNA HIGH RES Blood Bank Routine MDS (myelodysplastic syndrome) ([facility]) 1 Occurrences starting 03/05/2024 until 02/28/2025 HLA TYPING DNA HIGH RES Blood Bank Routine MDS (myelodysplastic syndrome) ([facility]) 1 Occurrences starting 03/05/2024 until 03/05/2024 HLA TYPING DNA LOW RESOLUTION A,B,C Blood Bank Routine MDS (myelodysplastic syndrome) ([facility]) Once for 1 Occurrences starting 03/05/2024 until 03/05/2024 HLA TYPING DNA LOW RESOLUTION DR,DQ Blood Bank Routine MDS (myelodysplastic syndrome) (HCC) Once for 1 Occurrences starting 03/05/2024 until 03/05/2024 HLA TYPING DNA HIGH RESOLUTION A Blood Bank Routine MDS (myelodysplastic syndrome) (HCC) Once for 1 Occurrences starting 03/05/2024 until 03/05/2024 HLA TYPING DNA HIGH RESOLUTION DQ Blood Bank Routine MDS (myelodysplastic syndrome) (HCC) Once for 1 Occurrences starting 03/05/2024 until 03/05/2024 HLA TYPING DNA HIGH RESOLUTION C Blood Bank Routine MDS (myelodysplastic syndrome) (HCC) Once for 1 Occurrences starting 03/05/2024 until 03/05/2024 HLA TYPING DNA HIGH RESOLUTION B Blood Bank Routine MDS (myelodysplastic syndrome) (HCC) Once for 1 Occurrences starting 03/05/2024 until 03/05/2024 HLA TYPING DNA HIGH RESOLUTION DR Blood Bank Routine MDS (myelodysplastic syndrome) (HCC) Once for 1 Occurrences starting 03/05/2024 until 03/05/2024 HLA TYPING LOW/HIGH RESOLUTION DPB1 Blood Bank Routine MDS (myelodysplastic syndrome) (HCC) Once for 1 Occurrences starting 03/05/2024 until 03/05/2024 documented as of this encounter Procedures Procedure Name Priority Date/Time Associated Diagnosis Comments FISH AML PANEL BLOOD OR BM RFLX PML/DANTE Routine 03/04/2024 4:13 PM JAI ALAI PLAYER MDS (myelodysplastic syndrome) (HCC) FISH AML+MDS PANEL BLOOD OR BONE MARROW Routine 03/04/2024 4:13 PM JAI ALAI PLAYER MDS (myelodysplastic syndrome) (HCC) MYELOID MALIGNANCIES MUTATION PNL STAT 03/04/2024 4:13 PM JAI ALAI PLAYER MDS (myelodysplastic syndrome) (HCC) HIV-1 HIV-2 ANTIBODY + HIV P24 AG PANEL Routine 03/04/2024 4:13 PM JAI ALAI PLAYER Neutropenia, unspecified type (HCC) FISH PML/DANTE PANEL Routine 03/04/2024 4 :13 PM JAI ALAI PLAYER MDS (myelodysplastic syndrome) (HCC) BCR-ABL1 CML+AML PCR QUANT PNL Routine 03/04/2024 4:13 PM JAI ALAI PLAYER MDS (myelodysplastic syndrome) (HCC) TSH REFLEX FREE T4 Routine 03/04/2024 4: 13 PM JAI ALAI PLAYER Neutropenia, unspecified type (HCC) RHEUMATOID FACTOR BLOOD QUANTITATIVE Routine 03/04/2024 4:13 PM JAI ALAI PLAYER Neutropenia, unspecified type (HCC) CYTOMEGALOVIRUS ANTIBODY IGG BLOOD Routine 03/04/2024 4:13 PM JAI ALAI PLAYER MDS (myelodysplastic syndrome) (HCC) C-REACTIVE PROTEIN Routine 03/04/2024 4: 13 PM JAI ALAI PLAYER Neutropenia, unspecified type (HCC) MARLINE BLOOD SCREEN W/REFLEX TITER Routine 03/04/2024 4:13 PM JAI ALAI PLAYER Neutropenia, unspecified type (HCC) ZINC BLOOD Routine 03/04/2024 4:13 PM JAI ALAI PLAYER Neutropenia, unspecified type (HCC) COPPER BLOOD Routine 03/04/2024 4:13 PM JAI ALAI PLAYER Neutropenia, unspecified type (HCC) ERYTHROCYTE SEDIMENTATION RATE Routine 03/04/2024 4:13 PM JAI ALAI PLAYER Neutropenia, unspecified type (HCC) DIFFERENTIAL MANUAL Routine 03/04/2024 4 :13 PM JAI ALAI PLAYER Neutropenia, unspecified type (HCC) CBC W AUTO DIFFERENTIAL Routine 03/04/20 4:13 PM JAI ALAI PLAYER Neutropenia, unspecified type (HCC) COMPREHENSIVE METABOLIC PANEL Routine 03/04/2024 4:13 PM JAI ALAI PLAYER Neutropenia, unspecified type (HCC) HEPATITIS B SURFACE ANTIBODY Routine 03/04/2024 4:13 PM JAI ALAI PLAYER Neutropenia, unspecified type (HCC) FOLATE Routine 03/04/2024 4:13 PM JAI ALAI PLAYER Neutropenia, unspecified type (HCC) VITAMIN B12 Routine 03/04/2024 4:13 PM JAI ALAI PLAYER Neutropenia, unspecified type (HCC) IRON + TRANSFERRIN PANEL Routine 03/04/2024 4:13 PM JAI ALAI PLAYER Neutropenia, unspecified type (HCC) HEPATITIS C ANTIBODY Routine 03/04/2024 4:13 PM JAI ALAI PLAYER Neutropenia, unspecified type (HCC) FERRITIN Routine 03/04/2024 4:13 PM JAI ALAI PLAYER Neutropenia, unspecified type (HCC) documented in this encounter Results * FISH PML/DANTE PANEL (03/04/2024 4:13 PM JAI ALAI PLAYER) EER PML/DANTE Translocation by Fish See Note 03/05/2024 6:44 PM JAI ALAI PLAYER [facility] ([facility]) Comment: Authorized individuals can access the [employer] Enhanced Report using the following link: [email or web address] Performed By: [facility] [address] [place] [address] Dining Car Hop: Uche Morley MD, PhD CLIA Number: [id number] PML/DANTE Translocation by FISH See Note 03/05/2024 6:44 PM JAI ALAI PLAYER [facility] ([facility]) Comment: Test Performed: PML-DANTE Translocation by FISH (FISH PML) Specimen Type: Peripheral Blood Indication for Testing: PML/DANTE RESULT Normal FISH Result t(15;17) PML::DANTE ??Fusion: ??not detected INTERPRETATION There was no evidence of PML::DANTE fusion due to translocation (15;17)(q24;q21). This analysis was performed with the PML/DANTE probes ([employer]). A total of 200 cells were scored. Cytogenomic Nomenclature (ISCN): nuc nereyda(PML,DANTE)x2[200' ?? This result has been reviewed and approved by Alonso Proctor, PhD INTERPRETIVE INFORMATION: PML/DANTE Translocation by FISH This test was developed and its performance characteristics determined by [facility]. It has not been cleared or approved by the US Food and Drug Administration. This test was performed in a CLIA certified laboratory and is intended for clinical purposes. Other BLOOD SPECIMEN / Unknown Collection / Unknown 03/04/2024 4:13 PM JAI ALAI PLAYER 03/04/2024 4:23 PM JAI ALAI PLAYER Cindy Garcia MD LAB - PATHOLOGY/CYTO LOGY ORDERABLES Performing Organization Address City/State/[facility] Co de Phone Number [facility] ([facility]) [address] [place] [address] * (ABNORMAL) DIFFERENTIAL MANUAL (03/04/2024 4:13 PM JAI ALAI PLAYER) Neutrophil % 13(L) 41 - 74 % 03/04/2024 5:02 PM [facility] Lymphocyte % 74(H) 17 - 47 % 03/04/2024 5:02 PM [facility] Monocyte % 7 3 - 11 % 03/04/2024 5:02 PM [facility] Eosinophil % 4 0 - 7 % 03/04/2024 5:02 PM [facility] Basophil % 2 0 - 2 % 03/04/2024 5:02 PM [facility] Neutrophil Absolute 0.13(L) 1.60 - 7.50 x10E9/L 03/04/2024 5:02 PM [facility] Lymphocyte Absolute 0.74(L) 1.00 - 4.40 x10E9/L 03/04/2024 5:02 PM [facility] Monocyte Absolute 0.07(L) 0.15 - 1.00 x10E9/L 03/04/2024 5:02 PM [facility] Eosinophil Absolute 0.04 0.00 - 0.60 x10E9/L 03/04/2024 5:02 PM [facility] Basophil Absolute 0.02 0.00 - 0.13 x10E9/L 03/04/2024 5:02 PM [facility] RBC Morphology REVIEWED 03/04/2024 5:02 PM [facility] Microcytosis MODERATE(A) (none) 03/04/2024 5:02 PM [facility] Schistocytes FEW(A) (none) 03/04/2024 5:02 PM [facility] Large Platelets PRESENT(A) (none) 5:02 PM [facility] Blood BLOOD SPECIMEN / Unknown Lab Venipuncture / Unknown 03/04/2024 4:13 PM JAI ALAI PLAYER 03/04/2024 4:27 PM JAI ALAI PLAYER Cindy Garcia MD LAB - HEMATOLOGY ORD ERABLES Performing Organization Address City/State/[facility] Co de Phone Number [facility] [address] [place] [phone], [facility] [phone] * MYELOID MALIGNANCIES MUTATION PNL (03/04/2024 4:13 PM JAI ALAI PLAYER) Interpretation Myeloid Malignancy PNL See Note 03/15/2024 11:52 AM JAI ALAI PLAYER [facility] [employer] ([facility]) Comment: Myeloid Malignancies Mutation Panel NGS Submitted diagnosis or diagnosis under consideration for variant interpretation: Myelodysplastic syndrome, unspecified (MDS unspec) TIER 1: Variants of Known Clinical Significance in Hematologic Malignancies 1. IDH1 c.394C>A, p.Rgv417Qna ([id number]) VAF: 11.0% IDH1 encodes an enzyme that catalyzes the conversion of isocitrate to alpha-ketoglutarate in the citric acid cycle (14). Somatic mutations of IDH1 are found in 4-12% of patients with myelodysplastic syndrome (MDS) (9). Acquired IDH1 mutations mostly affect codon Vdc311 (8) (21) (11). This mutation has been reported in hematologic malignancies (4). The prognostic significance of mutated IDH1 in MDS is uncertain (13) (17) (5) (10) (12) (20). 2. DNMT3A c.2206C>T, p.Vke790Bak ([id number]) VAF: 9.0% DNMT3A encodes a DNA methyltransferase enzyme (22). Somatic mutations of DNMT3A are found in 3-20% of patients with MDS (15) (3) (16). In myeloid malignancies, acquired DNMT3A mutations are often missense mutations at codon Iuu850, frameshift, or nonsense mutations (15). This mutation has been reported in hematologic malignancies (4) (3). MDS patients with DNMT3A mutations are more likely to progress to secondary acute myeloid leukemia (AML) (6) (18) (19). Mutated DNMT3A is also associated with shorter overall survival in MDS patients after hematopoietic stem cell transplantation (2). 3. DNMT3A c.2407A>G, p.Zjp152Cxq ([id number]) VAF: 8.3% This mutation has been reported in hematologic malignancies (3) (4). TIER 2: Variants of Unknown Clinical Significance in Hematologic Malignancies 1. CUX1 c.3085G>A, p.Lts4769Mkv ([id number]) VAF: 41.3% This variant has been rarely reported in hematologic malignancies (1) (7), to the best of our knowledge. References 1: Lynnette P, ??Emmanuelle B, ??Zhanna CLARK et al, Assessment of Minimal Residual Disease by Next Generation Sequencing in Peripheral Blood as a Complementary Tool for Personalized Transplant Monitoring in Myeloid Neoplasms. J Clin Med 2020. PMID:[id number] 2: Virginie R, ??Juan HERNANDEZ, ??Ulises Kim et al, Somatic mutations predict poor outcome in patients with myelodysplastic syndrome after hematopoietic stem-cell transplantation. J Clin Oncol 2014. PMID:73445347 3: cBioPortal: http://www.cbioportal.org/ 4: COSMIC: https://cancer.vipin.ac.uk/cosmic 5: Jahaira GRAY, ??Kamla Estrada, ??Mary Mason et al, IDH1 and IDH2 mutations in myelodysplastic syndromes and role in disease progression. Leukemia 2016. PMID:77297883 6: Asiya I, ??Day C, ??Lenin MURPHY et al, Frequency, onset and clinical impact of somatic DNMT3A mutations in therapy-related and secondary acute myeloid leukemia. Haematologica 2012. PMID:69062911 7: Cassandra Kim, ??Cornell Payne, ??Alexis Valdivia et al, DNA methylation epitypes highlight underlying developmental and disease pathways in acute myeloid leukemia. Genome Res 2020. PMID:[id number] 8: Gross S, ??Abena RA, ??Jaziel MARTINEZ et al, Cancer-associated metabolite 2-hydroxyglutarate accumulates in acute myelogenous leukemia with isocitrate dehydrogenase 1 and 2 mutations. J Exp Med 2010. PMID:60729352 9: Im AP, ??Louie AR, ??Kervin FRAIRE et al, DNMT3A and IDH mutations in acute myeloid leukemia and other myeloid malignancies: associations with prognosis and potential treatment strategies. Leukemia 2014. PMID:[id number] 10: Jose J Broussard, ??Charity Barcenas, ??Grayson Stroud et al, Mutations of IDH1 and IDH2 genes in early and accelerated phases of myelodysplastic syndromes and MDS/myeloproliferative neoplasms. Leukemia 2010. 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 Clin Cancer Res 2019. PMID:[id number] 12: Papaemmaalhajil E, ??Gerung M, ??Hugh L et al, Clinical and biological implications of driver utility worker mutations in myelodysplastic syndromes. Blood 2013. PMID:[id number] 13: Eileen MURPHY, ??Rajinder CHRISTY, ??Juju OTERO et al, Differential prognostic effect of IDH1 versus IDH2 mutations in myelodysplastic syndromes: a [facility] study of 277 patients. Leukemia 2012. PMID:[id number] 14: Bulmaro CamargoJ, Josse H, Isocitrate dehydrogenase 1 and 2 mutations in cancer: alterations at a crossroads of cellular metabolism. J Natl Cancer Inst 2010. PMID:[id number] 15: Jose Valdivia, ??Ivan V, ??Yudi U et al, Drexel analysis of DNMT3A mutations in hematological malignancies. Leukemia 2013. PMID:[id number] 16: Kim LANZA, ??Miriam O, ??Arnulfo REINOSO et al, The role of mutations in epigenetic regulators in myeloid malignancies. Yusra Rev Cancer 2012. PMID:48353682 17: Thol F, ??Roverto EM, ??Sam Lynn et al, IDH1 mutations in patients with myelodysplastic syndromes are associated with an unfavorable prognosis. Haematologica 2010. PMID:16003982 18: Thol F, ??Lisa Rubin, ??Bro Valdivia et al, Rare occurrence of DNMT3A mutations in myelodysplastic syndromes. Haematologica 2011. PMID:[id number] 19: Barrett MERRITT, ??Tono L, ??Jossue Amador et al, Recurrent DNMT3A mutations in patients with myelodysplastic syndromes. Leukemia 2011. PMID:[id number] 20: Cornell Flower, ??Cornell F, ??Yuval Flower et al, IDH1 Mutation Is an Independent Inferior Prognostic Indicator for Patients with Myelodysplastic Syndromes. Acta Haematol 2017. PMID:[id number] 21: Reynaldo HERNANDEZ, ??Arnulfo Lynn, ??Bartolo GUIDO et al, The common feature of leukemia-associated IDH1 and IDH2 mutations is a neomorphic enzyme activity converting alpha-ketoglutarate to 2-hydroxyglutarate. Cancer Cell 2010. PMID:44259377 22: Packer L, Gabriella R, Hieu MA, DNMT3A in haematological malignancies. Yusra Rev Cancer 2015. PMID:74287081 This result has been reviewed and approved by Renetta Hanks M.D. Low coverage regions: Listed below are regions where the average sequencing depth (number of times a particular nucleotide is sequenced) in at least 20% of the jccxkl-gq-cnnrvycm is less than our stringent cutoff of [...] NOTCH1; NPM1*; NRAS; NSD1; PHF6; PIGA; PPM1D; OBSB82T; PRPF8; PTPN11; RAD21; RUNX1; SAMD9; SAMD9L; SETBP1; [...] developed and its performance characteristics determined by [facility]. It has not been cleared or approved by the U.S. Food and Drug Administration. This test was performed in a CLIA-certified laboratory and is intended for clinical purposes. Myeloid Malignancy Dx Mds Unspec 03/15/2024 11:52 AM [facility] ([facility]) Myeloid Malignancy Panel Specimen Whole Blood 03/15/2024 11:52 AM [facility] ([facility]) EER Myeloid Malignancy See Note 03/15/2024 11:52 AM [facility] ([facility]) Comment: Authorized individuals can access the [facility] Enhanced Report using the following link: [email or web address] Performed By: [facility] [address] [place] [address] Dining Car Hop: Uche Morley MD, PhD CLIA Number: [id number] Other BLOOD SPECIMEN / Unknown Collection / Unknown 03/04/2024 4:13 PM JAI ALAI PLAYER 03/04/2024 4:24 PM JAI ALAI PLAYER Cindy Garcia MD LAB - PATHOLOGY/CYTO LOGY ORDERABLES [facility] ([facility]) [address] [place] [address], [facility] * CYTOMEGALOVIRUS ANTIBODY IGG BLOOD (03/04/2024 4:13 PM JAI ALAI PLAYER) Cytomegalovirus Antibody IgG <0.20 <=0.70 U/mL 03/05/2024 9:27 PM JAI ALAI PLAYER [facility] ([facility]) Comment: INTERPRETIVE INFORMATION: Cytomegalovirus Antibody, IgG [...] laboratory at the same time. Performed By: [facility] [address] [place] [address] Dining Car Hop: Uche Morley MD, PhD CLIA Number: [id number] Blood BLOOD SPECIMEN / Unknown Lab Venipuncture / Unknown 03/04/2024 4:13 PM JAI ALAI PLAYER 03/04/2024 4:23 PM JAI ALAI PLAYER Cindy Garcia MD LAB - CHEMISTRY CHELI MONREAL Performing Organization Address City/[facility]/ZIP Co de Phone Number [facility] ([facility]) [address] [place], [place] [address] * HEPATITIS C ANTIBODY (03/04/2024 4:13 PM JAI ALAI PLAYER) Hepatitis C Antibody Non-react carlos Non-reac tive 03/04/2024 5:12 PM JAI ALAI PLAYER [facility] Comment:Hepatitis C Antibody screen indicates no serologic evidence of past or current infection with Hepatitis C Virus. Patients with unexplained liver disease who are immunocompromised or suspected of having acute Hepatitis C infection may benefit from Nucleic Acid Test (YUSRA) for Hepatitis C Viral RNA to confirm Hepatitis C status. Blood BLOOD SPECIMEN / Unknown Lab Venipuncture / Unknown 03/04/2024 4:13 PM JAI ALAI PLAYER 03/04/2024 4:23 PM JAI ALAI PLAYER Cindy Garcia MD LAB - CHEMISTRY CHELI MONREAL Performing Organization Address City/[facility]/ZIP Co de Phone Number [facility] [address] [place] [phone], [facility] [phone] * HEPATITIS B SURFACE ANTIBODY (03/04/2024 4:13 PM JAI ALAI PLAYER) Hepatitis B Virus Surface Antibody Non-react carlos Non-react carlos 03/04/2024 5:12 PM JAI ALAI PLAYER [facility] Comment: < 8 mIU/mL Hepatitis B surface Antibody (HBsAb). Nonreactive for HBsAb - individual is considered not immune to Hepatitis B Virus infection. Hepatitis B Surface Antibody Quantitative 0.3 <8.0 mIU/mL 03/04/2024 5:12 PM JAI ALAI PLAYER [facility] Comment: Hepatitis B Surface Antibody Numeric Result Interpretation: ? Nonreactive: ?<8.0 mIU/mL ? Indeterminate: ??8.0 - 12.0 mIU/mL ? Reactive: ?>12.0 mIU/mL ? Blood BLOOD SPECIMEN / Unknown Lab Venipuncture / Unknown 03/04/2024 4:13 PM JAI ALAI PLAYER 03/04/2024 4:23 PM JAI ALAI PLAYER Cindy Garcia MD LAB - CHEMISTRY CHELI MONREAL Performing Organization Address [facility]/ZIP Co de Phone Number [address] [phone], [facility] [phone] * HIV-1 HIV-2 ANTIBODY + HIV P24 AG PANEL (New on 08/24) (03/04/2024 4:13 PM JAI [employer]LAI PLAYER) HIV Antigen/Antibod y 1 & 2 Non-reacti ve Non-react carlos 03/04/2024 5:12 PM JAI ALAI PLAYER [facility] Comment:No Laboratory eviden ce of HIV infection. Blood BLOOD SPECIMEN / Unknown Lab Venipuncture / Unknown 03/04/2024 4:13 PM JAI ALAI PLAYER 03/04/2024 4:23 PM JAI ALAI PLAYER Cindy Garcia MD LAB - CHEMISTRY CHELI MONREAL Performing Organization Address [facility]/ZIP Co de Phone Number [address] [address], [place] [phone] * ERYTHROCYTE SEDIMENTATION RATE (03/04/2024 4:13 PM JAI ALAI PLAYER) Erythrocyte Sedimentation Rate Westergren 14 0 - 20 MM/HR 03/04/2024 5:10 PM JAI ALAI PLAYER [facility] Blood BLOOD SPECIMEN / Unknown Lab Venipuncture / Unknown 03/04/2024 4:13 PM JAI ALAI PLAYER 03/04/2024 4:27 PM JAI ALAI PLAYER Cindy Garcia MD LAB - HEMATOLOGY ORD ERACAROL [facility] [address] [place] [address], [place] [phone] * C-REACTIVE PROTEIN (03/04/2024 4:13 PM JAI ALAI PLAYER) [facility] C-Reactive Protein 0.5 <=0.5 mg/dL 03/04/2024 4:56 PM JAI ALAI [facility] Blood BLOOD SPECIMEN / Unknown Lab Venipuncture / Unknown 03/04/2024 4:13 PM JAI ALAI PLAYER 03/04/2024 4:27 PM JAI ALAI PLAYER Cindy Garcia MD LAB - CHEMISTRY CHELI MONREAL [facility] [address] [place] [address], [place] [phone] * RHEUMATOID FACTOR BLOOD QUANTITATIVE (03/04/2024 4:13 PM JAI ALAI PLAYER) [facility] Rheumatoid Factor <15 <30 IU/mL 03/04/2024 4:57 PM [facility] Rheumatoid Factor Screen Negative Negative 03/04/2024 4:57 PM [facility] Blood BLOOD SPECIMEN / Unknown Lab Venipuncture / Unknown 03/04/2024 4:13 PM JAI ALAI PLAYER 03/04/2024 4:23 PM JAI ALAI PLAYER Cindy Garcia MD LAB - CHEMISTRY CHELI MONREAL [facility] [address] [place] [address], [place] [phone] * MARLINE BLOOD SCREEN W/REFLEX TITER (03/04/2024 4:13 PM JAI ALAI PLAYER) [facility] MARLINE IgG None Detected None Detected 03/05/2024 11:42 PM JAI ALAI PLAYER [facility] ([facility]) Comment: If suspicion of connective tissue disease is strong and MARLINE EIA is negative, consider testing for MARLINE by IFA ([id number]). INTERPRETIVE INFORMATION: Anti-Nuclear Antibodies (MARLINE), IgG by TOÑA Antinuclear Antibodies (MARLINE), IgG by TOÑA: MARLINE specimens are screened using enzyme-linked immunosorbent assay (TOÑA) methodology. All TOÑA results reported as Detected are further tested by indirect fluorescent assay (IFA) using HEp-2 substrate with an IgG-specific conjugate. The MARLINE TOÑA screen is designed to detect antibodies against dsDNA, histones, SS-A (Ro), SS-B (La), Pimentel, Pimentel/FRONT OFFICE ADMINISTRATOR, Scl-70, Mey-1, centromeric proteins, other antigens extracted from the HEp-2 cell nucleus. MARLINE TOÑA assays have been reported to have lower sensitivities than MARLINE IFA for systemic autoimmune rheumatic diseases (SARD). Negative results do not necessarily rule out SARD. Performed By: [facility] [place] [address] Dining Car Hop: Uche Morley MD, PhD CLIA Number: [id number] Blood BLOOD SPECIMEN / Unknown Lab Venipuncture / Unknown 03/04/2024 4:13 PM JAI ALAI PLAYER 03/04/2024 4:23 PM JAI ALAI PLAYER Cindy Garcia MD LAB - CHEMISTRY CHELI MONREAL Performing Organization Address City/[facility]/ZIP Co de Phone Number [facility] ([facility]) [address] [place] [phone] * (ABNORMAL) FERRITIN (03/04/2024 4:13 PM JAI ALAI PLAYER) [facility] Ferritin 21(L) 22 - 275 ng/mL 03/04/2024 5:12 PM [facility] Blood BLOOD SPECIMEN / Unknown Lab Venipuncture / Unknown 03/04/2024 4:13 PM JAI ALAI PLAYER 03/04/2024 4:23 PM JAI ALAI PLAYER Cindy Garcia MD LAB - CHEMISTRY CHELI MONREAL [address] [address], [facility] [phone] * (ABNORMAL) IRON + TRANSFERRIN PANEL [w/Transferrin Sat % + TIBC] (03/04/2024 4:13 PM JAI ALAI PLAYER) Pathologist [facility] [place] 31(L) 50 - 175 ug/dL 03/04/2024 4:53 PM [facility]I [facility] Transferrin 257 174 - 382 mg/dL 03/04/2024 4:53 PM [facility] Transferrin Saturation % 10(L) 16 - 50 % 03/04/2024 4:53 PM [facility] TIBC Calculated 321 240 - 450 ug/dL 03/04/2024 4:53 PM [facility] Blood BLOOD SPECIMEN / Unknown Lab Venipuncture / Unknown 03/04/2024 4:13 PM JAI ALAI PLAYER 03/04/2024 4:23 PM JAI ALAI PLAYER Cindy Garcia MD LAB - CHEMISTRY CHELI MONREAL Performing Organization Address City/[facility]/ZIP Co de Phone Number [address] [address], [facility] [phone] * TSH REFLEX FREE T4 (03/04/2024 4:13 PM JAI ALAI PLAYER) TSH 0.961 0.350 - 4.940 uIU/mL 03/04/2024 5:29 PM [facility] Blood BLOOD SPECIMEN / Unknown Lab Venipuncture / Unknown 03/04/2024 4:13 PM JAI ALAI PLAYER 03/04/2024 4:27 PM JAI ALAI PLAYER Cindy Garcia MD LAB - CHEMISTRY CHELI MONREAL Performing Organization Address City/[facility]/ZIP Co de Phone Number [address] [address], [facility] [phone] * ZINC BLOOD (03/04/2024 4:13 PM JAI ALAI PLAYER) Zinc 62.4 60.0 - 120.0 ug/dL 03/06/2024 6:35 AM JAI ALAI PLAYER [facility] ([facility]) Comment: INTERPRETIVE INFORMATION: Zinc, Serum or [...] developed and its performance characteristics determined by [employer]. It has not been cleared or approved by the US Food and Drug Administration. This test was performed in a CLIA certified laboratory and is intended for clinical purposes. Performed By: [place] [address] Dining Car Hop: Uche Morley MD, PhD CLIA Number: [id number] Blood BLOOD SPECIMEN / Unknown Lab Venipuncture / Unknown 03/04/2024 4:13 PM JAI ALAI PLAYER 03/04/2024 4:23 PM JAI ALAI PLAYER Cindy Garcia MD LAB - CHEMISTRY ORDE JOCELIN [facility]) [address] [place] [address], [facility] * COPPER BLOOD (03/04/2024 4:13 PM JAI ALAI PLAYER) Copper 108.5 70.0 - 140.0 ug/dL 03/06/2024 6:35 AM JAI ALAI PLAYER [facility] ([facility]) Comment: INTERPRETIVE INFORMATION: Copper, Serum or [...] developed and its performance characteristics determined by [facility]. It has not been cleared or approved by the US Food and Drug Administration. This test was performed in a CLIA certified laboratory and is intended for clinical purposes. Performed By: [facility] [address] [place] [address] Dining Car Hop: Uche Morley MD, PhD CLIA Number: [id number] Blood BLOOD SPECIMEN / Unknown Lab Venipuncture / Unknown 03/04/2024 4:13 PM JAI ALAI PLAYER 03/04/2024 4:23 PM JAI ALAI PLAYER Cindy Garcia MD LAB - CHEMISTRY CHELI MONREAL [facility] ([facility]) [address] * FOLATE (03/04/2024 4:13 PM JAI ALAI PLAYER) Folate 17.7 7.0 - 31.4 ng/mL 03/04/2024 5:29 PM [facility] Blood BLOOD SPECIMEN / Unknown Lab Venipuncture / Unknown 03/04/2024 4:13 PM JAI ALAI PLAYER 03/04/2024 4:27 PM JAI ALAI PLAYER Cindy Garcia MD LAB - CHEMISTRY CHELI MONREAL [facility] [address] [place] [address], [place] [phone] * VITAMIN B12 (03/04/2024 4:13 PM JAI ALAI PLAYER) Vitamin B12 524 213 - 816 pg/mL 03/04/2024 5:29 PM [facility] Blood BLOOD SPECIMEN / Unknown Lab Venipuncture / Unknown 03/04/2024 4:13 PM JAI ALAI PLAYER 03/04/2024 4:27 PM JAI ALAI PLAYER Cindy Garcia MD LAB - CHEMISTRY CHELI MONREAL [facility] [address] [place] [address], [place] [phone] * (ABNORMAL) COMPREHENSIVE METABOLIC PANEL (03/04/2024 4:13 PM JAI ALAI PLAYER) BUN 14 7 - 26 mg/dL 03/04/2024 4:56 PM JAI ALAI PLAYER [facility] Creatinine 1.10 0.71 - 1.16 mg/dL 03/04/2024 4:56 PM [facility]I [facility] Sodium 141 136 - 145 mmol/L 03/04/2024 4:56 PM [facility] Potassium 4.2 3.5 - 4.5 mmol/L 03/04/2024 4:56 PM [facility] Chloride 110(H) 98 - 107 mmol/L 03/04/2024 4:56 PM [facility] CO2 26 22 - 29 mmol/L 03/04/2024 4:56 PM [facility] Glucose 121(H) 70 - 99 mg/dL 03/04/2024 4:56 PM [facility] Calcium 9.6 8.4 - 10.2 mg/dL 03/04/2024 4:56 PM [facility] Protein Total 7.1 6.0 - 8.3 g/dL 03/04/2024 4:56 PM [facility] Albumin 3.8 3.4 - 5.0 g/dL 03/04/2024 4:56 PM [facility] Bilirubin Total 0.4 0.2 - 1.2 mg/dL 03/04/2024 4:56 PM [facility] Alkaline Phosphatase 130 40 - 150 U/L 03/04/2024 4:56 PM [facility] ALT 17 5 - 55 U/L 03/04/2024 4:56 PM [facility] AST 14 5 - 34 U/L 03/04/2024 4:56 PM [facility] Anion Gap 5(L) 6 - 16 03/04/2024 4:56 PM [facility] BUN/Creatinine Ratio 13 7 - 23 03/04/2024 4:56 PM [facility] Osmolality Calculated 294 275 - 295 mOsm/kg 03/04/2024 4:56 PM [facility] Albumin/Globulin Ratio 1.2 1.1 - 2.3 03/04/2024 4:56 PM [facility] eGFR by CKD-EPI 68(L) >=90 mL/min/1.7 3 m2 03/04/2024 4:56 PM [facility] Blood BLOOD SPECIMEN / Unknown Lab Venipuncture / Unknown 03/04/2024 4:13 PM JAI ALAI PLAYER 03/04/2024 4:27 PM JAI ALAI PLAYER Cindy Garcia MD LAB - CHEMISTRY ORDNatalie [facility]REAL [facility] [address] [place] [address], [facility] [phone] * (ABNORMAL) CBC W/ DIFFERENTIAL (03/04/2024 4:13 PM JAI ALAI PLAYER) WBC 1.0(L) 4.0 - 10.7 x10E9/L 03/04/2024 5:03 PM [facility] RBC Count 4.39 4.30 - 5.80 x10E12/L 03/04/2024 5:03 PM [facility] Hemoglobin 12.5(L) 13.3 - 17.5 g/dL 03/04/2024 5:03 PM [facility] Hematocrit 38.8 38.7 - 51.1 % 03/04/2024 5:03 PM [facility] MCV 88.4 80.0 - 98.0 fL 03/04/2024 5:03 PM [facility] MCH 28.5 26.7 - 33.6 pg 03/04/2024 5:03 PM [facility] MCHC 32.2 31.7 - 36.3 g/dL 03/04/2024 5:03 PM [facility] RDW-CV 16.8(H) 11.3 - 14.8 % 03/04/2024 5:03 PM [facility] Platelet Count 110(L) 150 - 420 x10E9/L 03/04/2024 5:03 PM [facility] MPV 12.4(H) 7.8 - 11.4 fL 03/04/2024 5:03 PM [facility] Blood BLOOD SPECIMEN / Unknown Lab Venipuncture / Unknown 03/04/2024 4:13 PM JAI ALAI PLAYER 03/04/2024 4:27 PM JAI ALAI PLAYER Cindy Garcia MD LAB - HEMATOLOGY ELI PENNY [facility] [address] [place] [address], [facility] [phone] * BCR-ABL1 CML+AML PCR QUANT PNL (03/04/2024 4:13 PM JAI ALAI PLAYER) Interpretation TNP 03/13/2024 5:08 PM [facility] ([facility]) Comment: Unable to obtain results. Repeated efforts to analyze this specimen have been unsuccessful. LOW CONTROL GENE COPY NUMBER INDICATED SPECIMEN DEGRADATION. Director Review Comment 5:08 PM [facility] ([facility]) Comment: Dawood Sarabia, PhD, [facility] ?Director, Molecular Oncology ?[facility] Molecular Biology and Pathology ?[place] [address] ? Background Comment 03/13/2024 5:08 PM [facility] ([facility]) Comment: This assay can detect three [...] as indicated. Methodology Comment 03/13/2024 5:08 PM [facility] ([facility]) Comment: Total RNA is isolated from [...] developed and its performance characteristics determined by [employer]. It has not been cleared or approved by the Food and Drug Administration. Blood BLOOD SPECIMEN / Unknown Lab Venipuncture / Unknown 03/04/2024 4:13 PM JAI ALAI PLAYER 03/04/2024 4:24 PM JAI ALAI PLAYER Narrative [facility] ([facility]) - 03/13/2024 5:08 PM JAI ALAI PLAYER Performed at: ??01 - [facility] [address] [place], [place] ??[id number] Color Depositing Machine Tender: Cinthya Roper [facility], Phone: ??[phone] Performed at: ??02 - [facility] [address] [place], [place] ??[id number] Color Depositing Machine Tender: Cinthya Roper [facility], Phone: ??[phone] Cindy Garcia MD LAB - CHEMISTRY CHELI MONREAL [facility] ([facility]) [address] [place] [address] * FISH AML PANEL BLOOD OR BM RFLX PML/DANTE (03/04/2024 4:13 PM JAI ALAI PLAYER) [facility] FISH AML Panel See Note Normal 03/07/2024 2:17 PM JAI ALAI PLAYER [facility] ([facility]) Comment: Test Performed: Acute Myeloid Leukemia Panel by FISH (FISHAML) Specimen Type: Peripheral Blood Indication for Testing: AML panel RESULT Normal FISH Result inv(3) or t(3;3) GATA2::MECOM Fusion: ??not detected Deletion 5q: ??not detected Monosomy 7: ??not detected Deletion 7q: ??not detected t(8;21) RUNX1::RUYK4G8 Fusion: ??not detected 11p15 (NUP98) Rearrangement: ??not detected 11q23 (KMT2A) Rearrangement: ??not detected inv(16) or t(16;16) CBFB::MYH11 Fusion: ??not detected INTERPRETATION There was no evidence of GATA2::MECOM (also known as RPN1-EVI1) fusion due to 3q21/3q26.2 inversion or translocation, deletion 5q31, monosomy 7, deletion 7q31, RUNX1::UDQS2M4 fusion due to translocation (8;21)(q21.3;q22), 11p15 (NUP98) rearrangement, 11q23 KMT2A (MLL) rearrangement, or CBFB::MYH11 fusion due to either 16p13.1/16q22 inversion or translocation. This analysis was performed with the AML panel probes RPN1/MECOM, D5S23/EGR1, D7Z1/G1A017, RUNX1/GELC9W4 ([employer]), NUP98 and CBFB-MYH11 ([employer]), and MLL (KMT2A) ([employer]). A total of 200 cells were scored for each probe. Cytogenomic Nomenclature (ISCN): nuc nereyda(RPN1,MECOM,D5S23,EGR1,D7Z1,Z4F815,YVID2C2,NUP98,KMT2A,MYH11,CBF B,RUNX1)x2[200' This result has been reviewed and approved by Margaret Roberson, PhD, [facility] INTERPRETIVE INFORMATION: AML Panel by FISH This test was developed and its performance characteristics determined by [facility]. It has not been cleared or approved by the US Food and Drug Administration. This test was performed in a CLIA certified laboratory and is intended for clinical purposes. EER AML Panel by FISH See Note 03/07/2024 2:17 PM JAI ALAI PLAYER [facility] ([facility]) Comment: Authorized individuals can access the [employer] Enhanced Report using the following link: [email or web address] Performed By: [facility] [address] [place] [address] Dining Car Hop: Uche Morley MD, PhD CLIA Number: [id number] Other BLOOD SPECIMEN / Unknown Collection / Unknown 03/04/2024 4:13 PM JAI ALAI PLAYER 03/04/2024 4:23 PM JAI ALAI PLAYER Cindy Garcia MD LAB - PATHOLOGY/CYTO LOGY ORDERABLES [facility] [employer] [facility]) [address] [place] [address], [facility] * FISH AML+MDS PANEL BLOOD OR BONE MARROW (03/04/2024 4:13 PM JAI ALAI PLAYER) FISH AML with MDS, Therapy-Rltd AML See Note Normal 03/19/2024 4:32 PM JAI ALAI PLAYER [facility] ([facility]) Comment: Test Performed: Acute Myelogenous Leukemia [...] with the Therapy-Related AML panel probes D5S23/EGR1, D7Z1/Z6L253, and MLL (KMT2A) ([employer] Fil[employer]emic). A total of 200 cells were scored for each probe. Cytogenomic Nomenclature (ISCN): nuc nereyda(D5S23,EGR1,D7Z1,X1B937,KMT2A)x2[200' This result has been reviewed and approved by Charles Pablo MD, [facility] INTERPRETIVE INFORMATION: AML with MDS, Therapy-Related AML, FISH This test was developed and its performance characteristics determined by [facility]. It has not been cleared or approved by the US Food and Drug Administration. This test was performed in a CLIA certified laboratory and is intended for clinical purposes. EER AML with MDS, Therapy-Rltd AML FISH See Note 03/19/2024 4:32 PM JAI ALAI PLAYER [place] [employer] [facility] ([facility]) Comment: Authorized individuals can access the [facility] Enhanced Report using the following link: [email or web address] Performed By: [facility] [address] [place] [address] Dining Car Hop: Uche Morley MD, PhD CLIA Number: [id number] Other BLOOD SPECIMEN / Unknown Collection / Unknown 03/04/2024 4:13 PM JAI ALAI PLAYER 03/04/2024 4:23 PM JAI ALAI PLAYER Cindy Garcia MD LAB - PATHOLOGY/CYTO LOGY ORDERABLES [facility] [employer] ([facility]) [address] [place] [address] documented in this encounter Visit Diagnoses Diagnosis MDS (myelodysplastic syndrome) (HCC)- Primary Myelodysplastic syndrome, unspecified Neutropenia, unspecified type (HCC) documented in this encounter Care Teams Mechanism Assembler Relationship Specialty Start Date End Date Timothy Banks MD [address] [place] [address] PCP - General 10/19/18 documented as of this encounter
--- OUTSIDE RECORDS SUMMARY | 2024-04-09 17:26 | XMS_ITS | Encounter Summary ---
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) Procedures EKG 12-LEAD José Luis Gomez APRN-WIRE MILL OPERATOR [address] [place] [address] Referral ID Status Reason Start Date Expiration Date Visits Re quested Visits Authorized [id number] Open 03/23/2024 03/23/2025 1 1 DUST CLE[employer]ER [employer] SALVAGER * Consultation (Urgent) - Closed Specialty Diagnoses / Procedures Referred By Contshakila t Referred To Contact Transitional Care Diagnoses MDS (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, 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) José Luis Gomez APRN-WIRE MILL OPERATOR [address] [place] [address] [facility] [address] [place] [phone] Referral ID Status Reason Start Date Expiration Date V isits Requested Visits Authorized [id number] Closed Specialty Services Required 03/23/2024 03/23/2025 1 1 D[employer] CLE[employer] SALVAGER Reason for Visit * Auth/Cert (Routine) Specialty Diagnoses / Procedures Referred By Marilee t Referred To Contact Diagnoses AML Referral ID Status Reason Start Date Expiration Date Visits Re quested Visits Authorized [id number] 1 1 Encounter Details Date Type Department Care Team (Late st Contact Info) Description 03/13/2024 7:14 PM CHAR DUST CLEANER AND SALVAGER - 03/23/2024 1:56 PM CHAR DUST CLEANER AND SALVAGER Hospital Encounter [facility] 7N ACUTE [address] [place] [address] Cindy Garcia MD [address] [place], [place] [id number] Rayne Dent MD [address] [place] [id number] Rodo Perez MD [address] [place] [address] Josh Zapata MD [address] [place] [address] Internal Medicine Discharge Disposition: Home or Self Care Social [...] and heating? Not hard at all 03/13/2024 [facility] [place] [facility] - Occupational Stress [...] were you homeless or living in a longterm (including now)? No 03/13/2024 Sex and Gender Information Value Date Recorded Sex Assigned at Male 03/05/2024 8:04 AM CHAR D[employer] CLE[employer]ER [employer] SALVAGER Gender Identity Male 03/05/2024 8:04 AM CHAR [employer]UST CLE[employer]ER [employer] SALVAGER Sexual Orientation Straight 03/05/2024 8: 04 AM CHAR [employer] CLE[employer] SALVAGER documented as of this encounter Last Filed Vital Signs Vital Sign Reading Time Taken Comments Blood Pressure 111/56 03/23/2024 10:27 AM CHAR [employer] CLE[employer]ER [employer] SALVAGER Pulse 72 03/23/2024 10:27 AM CHAR DUST CLE[employer]ER AND SALVAGER Temperature 36.9 ??C (98.5 ??F) 03/23/2024 10:[address] Respiratory Rate 18 03/23/2024 10:27 AM CHAR DUST CLE[employer]ER [employer] SALVAGER Oxygen Saturation 96% 03/23/2024 10:27 AM CHAR DUST CLE[employer]ER AND SALVAGER Inhaled Oxygen Concentration - - Weight 99 kg (218 lb 3.2 oz) 03/23/2024 4:16 AM CHAR DUST CLEANER AND SALVAGER Height 182.9 cm (6') 03/15/2024 12:17 PM CHAR D[employer] CLE[employer]ER [employer] SALVAGER Body Mass Index 29.59 03/15/2024 12:17 PM CHAR DUST CLE[employer]ER [employer] SALVAGER documented in this encounter Functional Status Functional [...] No 03/13/2024 documented as of this encounter Discharge Summaries * José Luis Gomez, DRUM ATTENDANT-WIRE MILL OPERATOR - 03/23/2024 9:52 AM CST Hospital Discharge Summary Patient ID: Russ Burciaga [id number] 78 year old 1945 Admit date: 03/13/2024 Discharge date: 03/23/24 Admitting Physician: Cindy Garcia MD Discharge Physician: Josh Zapata MD Present on Admission: MDS (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, 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) Discharge Diagnoses: AML Chronic leukopenia, POA Pancytopenia 2/2 AML HTN, POA, stable CAD, POA, stable 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 Patient was admitted to medicine with oncology consult, he underwent a repeat bone marrow biopsy on03/15 which revealed acute myeloid leukemia. Chemotherapy was started 03/19/2024 with decitabine and venetoclax. Decitabine cycle completed 03/23, patient discharged after dose to continue oral venetoclax at home per heme/onc recs. Patient discharged w/ 3 days of Kphos and Mag-Ox supplements as well as new ferrous sulfate every other day per heme/onc. Outpatient ECG & labs ordered. Heme/Onc coordinating follow up (also see discharge AVS below). [facility] Please ensure patient has scheduled a f/u with his established heme/onc provider. Please ensure patient has scheduled a f/u with his established PCP. Labs and ECG have been ordered, please ensure drawn and checked. Consults: Hematology, Oncology Pending Labs and Studies: fish AML panel, HLA typing labs, myeloid malignancies mutation panel Significant Diagnostic Studies: CBC: Recent Labs Lab Units 03/23/242403/22/24 0603/21/24 0347 WBC x10E9/L 0.6* 0.5* 0.3* RBC x10E12/L 3.71* 3.83* 3.81* HGB g/dL 10.6* 10.9* 10.8* HCT % 32.2* 33.2* 32.7* BMP: Recent Labs Lab Units 03/23/242403/22/24181903/22/24 0658 NA mmol/L 141 141 141 CL mmol/L 108* 109* 110* CO2 mmol/L 23 24 24 BUN mg/dL 12 13 11 CREATININE mg/dL 1.06 1.08 1.11 CALCIUM mg/dL 8.7 8.5 8.6 Magnesium: Recent Labs Component Name 03/23/242403/22/24181903/22/24 0658 MAGNESIUM 1.9 2.0 1.9 Phosphorus: Recent Labs Lab Units 03/23/242403/22/24 18203/22/24 0658 PHOS mg/dL 2.5* 2.9 2.8 Coagulation: Recent Labs Lab Units 03/23/242403/22/24 0658 03/21/24 0347 PT Seconds 17.2* 17.5* 17.4* INR 1.4 1.5 1.5 Endocrine: No results for input(s): TSH , A1C in the last 168 hours. LFTs: Recent Labs Lab Units 03/23/242403/22/24 18203/22/24 0658 AST U/L 26 25 19 ALT U/L 30 31 25 TBILI mg/dL 0.6 0.8 0.9 ALB g/dL 3.1* 3.2* 2.9* No results found. Discharge Exam: Blood pressure 116/61, pulse 83, temperature 98.3 ??F (36.8 ??C), temperature source Oral, resp. rate 20, height 1.829 m (6'), weight 99 kg (218 lb 3.2 oz), SpO2 95%. Physical Exam Vitals reviewed. Constitutional: General: He is not in acute distress. Sitting edge of bed eating breakfast w/ spouse. Appearance: He is not ill-appearing, toxic-appearing or diaphoretic. HENT: Head: Atraumatic. Ears: Comments: Hearing intact to voice Eyes: General: No scleral icterus. Extraocular Movements: Extraocular movements intact. Conjunctiva/sclera: Conjunctivae normal. Cardiovascular: Rate and Rhythm: Normal rate and regular rhythm. Heart sounds: No friction rub. No gallop. Pulmonary: Effort: Pulmonary effort is normal. No respiratory distress. Breath sounds: Normal breath sounds. Comments: Room air Abdominal: General: Bowel sounds are normal. Palpations: Abdomen is soft. Tenderness: There is no abdominal tenderness. There is no guarding. Musculoskeletal: General: No deformity. Cervical back: No rigidity. Right lower leg: No edema. Left lower leg: No edema. Skin: General: Skin is warm and dry. Neurological: Mental Status: He is alert and oriented to person, place, situation, and time. Mental status is at baseline. Psychiatric: Mood and Affect: Mood normal. Behavior: Behavior normal. Pleasant. Thought Content: Thought content normal. Disposition: Home Patient Instructions: Medication List START taking these medications acetaminophen 325 MG tablet Commonly known as: Tylenol Take 2 (two) tablets by mouth every 4 hours as needed Maximum allowable Acetaminophen amount = 4 Grams (4000 mg) / 24 hours. allopurinol 300 MG tablet Commonly known as: Zyloprim Take 1 (one) tablet by mouth once daily after breakfast ferrous sulfate 325 (65 FE) MG tablet Take 1 (one) tablet by mouth every 2 days magnesium oxide 400 MG tablet Commonly known as: Mag-Ox Take 1 (one) tablet by mouth 2 times daily for 3 days ondansetron (disintegrating) 8 MG tablet Commonly known as: Zofran ODT Take 1 (one) tablet by mouth 2 times daily as needed for Nausea/Vomiting Allow tablet to dissolve on the tongue polyethylene glycol 3350 17 g packet Commonly known as: Miralax Take 17 (seventeen) g by mouth once daily as needed for Constipation potassium - sodium phosphates 280-160-250 MG powder Commonly known as: Phos-Nak Take 1 (one) packet by mouth 3 times daily with meals for 3 days Sennosides 17.2 MG Commonly known as: Senokot Extra Strength Take 17.2 mg by mouth once daily as needed for Constipation valACYclovir 500 MG tablet Commonly known as: Valtrex Take 1 (one) tablet by mouth 2 times daily CHANGE how you take these medications apixaban 2.5 MG tablet Commonly known as: Eliquis Take 1 (one) tablet by mouth 2 times daily What changed: medication strength how much to take levoFLOXacin 500 MG tablet Commonly known as: Levaquin Take 1 (one) tablet by mouth every 24 hours What changed: medication strength how much to take when to take this CONTINUE taking these medications budesonide-formoterol 160-4.5 MCG/ACT inhaler Commonly known as: Symbicort dilTIAZem 120 MG tablet Commonly known as: Cardizem folic acid 400 MCG tablet lansoprazole 30 MG capsule Commonly known as: Prevacid posaconazole 100 MG tablet Commonly known as: Noxafil Take 3 (three) tablets by mouth daily with dinner for 90 days venetoclax 100 MG tablet Commonly known as: Venclexta Take 1 (one) tablet by mouth daily with food Reasons: Acute Myelocytic Leukemia Vitamin D3 25 MCG (1000 UT) Where to Get Your Medications These medications were sent to [facility] [address] [address] allopurinol 300 MG tablet apixaban 2.5 MG tablet ferrous sulfate 325 (65 FE) MG tablet levoFLOXacin 500 MG tablet magnesium oxide 400 MG tablet ondansetron (disintegrating) 8 MG tablet potassium - sodium phosphates 280-160-250 MG powder valACYclovir 500 MG tablet You can get these medications from any pharmacy You don't need a prescription for these medications acetaminophen 325 MG tablet polyethylene glycol 3350 17 g packet Sennosides 17.2 MG Discharge Instructions Russ Burciaga, HOSPITAL COURSE: You were admitted for cancer (acute myeloid leukemia) work up. You had a bone marrow biopsy done on03/15 which showed that you have acute myeloid leukemia with myelodysplasia, and chemotherapy was started on 03/19 (decitabine + venetoclax). During your hospital stay the dose of eliquis was decreased from 5 mg twice daily to 2.5 mg twice daily since you were on posaconazole (the medicine use to prevent certain fungal infectious in patients who have weakened immune systems) and the combination of these medications can cause increased bleeding risk. You also had an ultrasound of the heart and it showed elevated pressure in the left side of the your heart (your focus should be regular exercise, managing blood pressure, low sodium diet, and taking any blood pressure medications as prescribed). Additionally - your phosphorus, potassium, and magnesium levels are on the low end of the range so I am prescribing you 3 days' supply of supplements to take by mouth, the levels will be rechecked with your next set of labs. Start taking iron supplement (ferrous sulfate 325mg) every other day per heme/onc. Per the hematology/oncology team, you should have labs and an ECG of your heart checked weekly and followed by your primary are as well as the hematology/oncologist you are already established with. You have a follow up appointment with [facility] Dr. Garcia scheduled (see below). --If your labs show that your platelet count drops below 30-50 (thousand), you should make sure to follow up with the oncologists as you will likely need to hold/stop taking your eliquis (blood thinner). FOLLOW-UP: Future Appointments Monday April 01, 2024 2:00 PM (Arrive by 1:45 PM) Appointment with Cindy Garcia at [facility] - Hematology/Oncology ([phone] [address] [facility] [address] As directed Outpatient Referral: Ref to [facility] Transitional Care Follow up with bridge clinic here at [facility] ([facility]) in 1-2 weeks after discharge. They should call you with appointment details once scheduled. This is a one-time follow up catch all appointment that can serve similarly to a primary care appointment, but the great thing is they directly can see your hospital records and follow up with your condition specifically! Making sure that you have all the appropriate follow up appointments scheduled as well as draw your labs in-office while there. Please make this appointment. It is essential that you keep all of your follow-up appointments and go to your doctors appointments as scheduled. If a follow-up with your primary care provider has not been scheduled, you need to schedule an appointment to follow- up on your hospitalization. If there is a conflict, please call theclinic ahead of time and reschedule the appointment. If you need to call [facility] for any reason, you may reach us at [phone] and dial [phone] for the catalyst recovery operator. DISCHARGE MEDICATIONS: Your medications are listed on the After Visit Summary and your nurse should any questions you may have with you prior to discharge. If you have any questions about your medications, please be sure to ask the pharmacy when you moss picker your prescription. You may also call your primary provider if you are uncertain if you should be taking your medication. CONCERNING SYMPTOMS: When to call your healthcare provider: Call your healthcare provider immediately if you have any of the following: - Fever of 100.4??F (38??C) or higher - Shaking chills - Intractable nausea and vomiting - Severe headache - Confusion/altered mental status - Seizures (convulsions) - Weakness in arms/legs - Dizziness If you are unable to reach your primary provider, please go to the nearest emergency room or call EMS ([phone]). Thanks! Internal Medicine Department [address] [address] Signed: SAMREEN Garg 03/23/2024 Time spent on discharge: 60 minutes. Time was spent on preparation of reviewing chart, prescriptions, counseling patient, working with social work and nursing, discussion with family, documentation. DUST CLEANER AND SALVAGER documented in this encounter Discharge Instructions * Discharge Instructions* José Luis Gomez APRN-CNP - 03/17/2024 1:17 PM CHAR DUST CLEANER AND SALVAGER Russ Burciaga, HOSPITAL COURSE: You were admitted for cancer (acute myeloid leukemia) work up. You had a bone marrow biopsy done on03/15 which showed that you have acute myeloid leukemia with myelodysplasia, and chemotherapy was started on 03/19 (decitabine + venetoclax). During your hospital stay the dose of eliquis was decreased from 5 mg twice daily to 2.5 mg twice daily since you were on posaconazole (the medicine use to prevent certain fungal infectious in patients who have weakened immune systems) and the combination of these medications can cause increased bleeding risk. You also had an ultrasound of the heart and it showed elevated pressure in the left side of the your heart (your focus should be regular exercise, managing blood pressure, low sodium diet, and taking any blood pressure medications as prescribed). Additionally - your phosphorus, potassium, and magnesium levels are on the low end of the range so I am prescribing you 3 days' supply of supplements to take by mouth, the levels will be rechecked with your next set of labs. Start taking iron supplement (ferrous sulfate 325mg) every other day per heme/onc for your anemia. Per the hematology/oncology team, you should have labs and an ECG of your heart checked weekly and followed by your primary are as well as the hematology/oncologist you are already established with. You have a follow up appointment with [facility] Dr. Garcia scheduled (see below). --If your labs show that your platelet count drops below 30-50 (thousand), you should make sure to follow up with the oncologists as you will likely need to hold/stop taking your eliquis (blood thinner). FOLLOW-UP: Future Appointments Monday April 01, 2024 2:00 PM (Arrive by 1:45 PM) Appointment with Cindy Garcia at [facility] - Hematology/Oncology ([phone] [address] [facility] [address] As directed Outpatient Referral: Ref to [facility] Trans[facility] Care Follow up with [facility] clinic here at [facility] ([facility]) in 1-2 weeks after discharge. They should call you with appointment details once scheduled. This is a one-time follow up catch all appointment that can serve similarly to a primary care appointment, but the great thing is they directly can see your hospital records and follow up with your condition specifically! Making sure that you have all the appropriate follow up appointments scheduled as well as draw your labs in-office while there. Please make this appointment. It is essential that you keep all of your follow-up appointments and go to your doctors appointments as scheduled. If a follow-up with your primary care provider has not been scheduled, you need to schedule an appointment to follow- up on your hospitalization. If there is a conflict, please call theclinic ahead of time and reschedule the appointment. If you need to call [facility] for any reason, you may reach us at [phone] and dial 0 for the catalyst recovery operator. DISCHARGE MEDICATIONS: Your medications are listed on the After Visit Summary and your nurse should any questions you may have with you prior to discharge. If you have any questions about your medications, please be sure to ask the pharmacy when you moss picker your prescription. You may also call your primary provider if you are uncertain if you should be taking your medication. CONCERNING SYMPTOMS: When to call your healthcare provider: Call your healthcare provider immediately if you have any of the following: - Fever of 100.4??F (38??C) or higher - Shaking chills - Intractable nausea and vomiting - Severe headache - Confusion/altered mental status - Seizures (convulsions) - Weakness in arms/legs - Dizziness If you are unable to reach your primary provider, please go to the nearest emergency room or call EMS ([phone]). Thanks! Internal Medicine Department [address] [address] DUST CLEANER AND SALVAGER documented in this encounter Medications at Time of Discharge [...] ondansetron, disintegrating, (Zofran ODT) 8 MG tabletIndications:Ac ambler myeloid leuk w multilin dysplasia, not achieve [...] 1 (one) capsule by mouth once daily magnesium oxide (Mag-Ox) 400 MG tablet Take 1 (one) tablet by mouth 2 times daily for 3 days 6 tablet 03/23/2024 03/26/2024 potassium - sodium phosphates (Phos-Nak) 280-160-250 MG powder Take 1 (one) packet by mouth 3 times daily with meals for 3 days 9 packet 03/23/2024 03/26/2024 venetoclax (Venclexta) 100 MG tabletIndications:Ac ambler Myelocytic Leukemia Take 1 (one) tablet by mouth daily with food Reasons: Acute Myelocytic Leukemia 28 tablet 11 03/13/2024 04/05/2024 documented as of this encounter Progress Notes * Teresita Bolden RN - 03/23/2024 1:56 PM CST 03/25/2024 7:42 AM Care Coordination Progress Note Expected Discharge Date: 03/23/2024: Discharge Plan: Home Pt discharged to home on 03/23 with support of spouse. Follow up appointment scheduled. No new needs identified. APR 01 OFFICE VISIT with Cindy Garcia MD Monday 2:00 PM (Arrive by 1:45 PM) [facility] - Hematology/Oncology [address] [facility] [address] Family Support (Name and Phone): Extended Emergency Contact Information Primary Emergency Contact: jo ann burciagaine Address: [address] Mobile Relation: Significant other Transportation at Discharge: Family: READMISSION RISK SCORE is 12* at 7:42 AM 03/25/2024.: Name: Teresita Bolden RN DUST CLEANER AND SALVAGER * Steffi Deluna RN - 03/22/2024 10:30 PM CST Problem: Fall Risk Goal: Fall risk and fall related injury risk are minimized (interventions related to the fall risk can be found in the flowsheet documentation) 03/22/20242229 by Steffi Deluna RN Outcome: Progressing 03/22/20242229 by Steffi Deluna RN Outcome: Progressing Problem: Pain/Discomfort Goal: Patient exhibits reduced pain/discomfort as evidenced by pain scores 03/22/20242229 by Steffi Deluna RN Outcome: Progressing 03/22/20242229 by Steffi Deluna RN Outcome: Progressing Goal: Patient uses pharmacological and non-pharmacological pain management strategies. 03/22/20242229 by Steffi Deluna RN Outcome: Progressing 03/22/20242229 by Steffi Deluna RN Outcome: Progressing Goal: Patient verbalizes acceptable level of pain relief and ability to engage in desired activity. 03/22/20242229 by Steffi Deluna RN Outcome: Progressing 03/22/20242229 by Steffi Deluna RN Outcome: Progressing Problem: Infection Goal: Signs and symptoms of infections are decreased or avoided 03/22/20242229 by Steffi Deluna RN Outcome: Progressing 03/22/20242229 by Steffi Deluna RN Outcome: Progressing Problem: Respiratory - Adult Goal: Achieves optimal ventilation and oxygenation Description: INTERVENTIONS: 03/22/20242229 by Steffi Deluna RN Outcome: Progressing 03/22/20242229 by Steffi Deluna RN Outcome: Progressing Problem: Cardiovascular - Adult Goal: Maintains optimal cardiac output and hemodynamic stability Description: INTERVENTIONS: 03/22/20242229 by Steffi Deluna RN Outcome: Progressing 03/22/20242229 by Steffi Deluna RN Outcome: Progressing Goal: Absence of cardiac dysrhythmias or at baseline Description: INTERVENTIONS: 03/22/20242229 by Steffi Deluna RN Outcome: Progressing 03/22/20242229 by Steffi Deluna RN Outcome: Progressing Problem: Infection - Adult Goal: Infections are decreased or avoided Description: INTERVENTIONS: 03/22/20242229 by Steffi Deluna RN Outcome: Progressing 03/22/20242229 by Steffi Deluna RN Outcome: Progressing Problem: Metabolic/Fluid and Electrolytes - Adult Goal: Electrolytes maintained within normal limits Description: INTERVENTIONS: 03/22/20242229 by Steffi Deluna RN Outcome: Progressing 03/22/20242229 by Steffi Deluna RN Outcome: Progressing Goal: Hemodynamic stability and optimal renal function maintained Description: INTERVENTIONS: 03/22/20242229 by Steffi Deluna RN Outcome: Progressing 03/22/20242229 by Steffi Deluna RN Outcome: Progressing Problem: Hematologic - Adult Goal: Maintains hematologic stability Description: INTERVENTIONS: 03/22/20242229 by Steffi Deluna RN Outcome: Progressing 03/22/20242229 by Steffi Deluna RN Outcome: Progressing Problem: Musculoskeletal - Adult Goal: Return mobility to safest level of function Description: INTERVENTIONS: 03/22/20242229 by Steffi Deluna RN Outcome: Progressing 03/22/20242229 by Steffi Deluna RN Outcome: Progressing Goal: Return ADL status to a safe level of function Description: INTERVENTIONS: 03/22/20242229 by Steffi Deluna RN Outcome: Progressing 03/22/20242229 by Steffi Deluna RN Outcome: Progressing Problem: Skin/Tissue Integrity - Adult Goal: Skin integrity remains intact Description: INTERVENTIONS: 03/22/20242229 by Steffi Deluna RN Outcome: Progressing 03/22/20242229 by Steffi Deluna RN Outcome: Progressing Goal: Incisions, wounds, or drain sites healing without S/S of infection Description: INFECTIONS: 03/22/20242229 by Steffi Deluna RN Outcome: Progressing 03/22/20242229 by Steffi Deluna RN Outcome: Progressing Goal: Oral mucous membranes remain intact Description: INTERVENTIONS: 03/22/2024 223 by Steffi Deluna RN Outcome: Progressing 03/22/20242229 by Steffi Deluna RN Outcome: Progressing Problem: Nutrient: Increased nutrient needs (specify) Goal: Total intake will meet estimated nutrient needs 03/22/20242229 by Steffi Deluna RN Outcome: Progressing 03/22/20242229 by Steffi Deluna RN Outcome: Progressing [employer] * Steffi Deluna RN - 03/22/2024 10:30 PM CST Problem: Fall Risk Goal: Fall risk and fall related injury risk are minimized (interventions related to the fall risk can be found in the flowsheet documentation) Outcome: Progressing Problem: Pain/Discomfort Goal: Patient exhibits reduced pain/discomfort as evidenced by pain scores Outcome: Progressing Goal: Patient uses pharmacological and non-pharmacological pain management strategies. Outcome: Progressing Goal: Patient verbalizes acceptable level of pain relief and ability to engage in desired activity. Outcome: Progressing Problem: Infection Goal: Signs and symptoms of infections are decreased or avoided Outcome: Progressing Problem: Respiratory - Adult Goal: Achieves optimal ventilation and oxygenation Description: INTERVENTIONS: Outcome: Progressing Problem: Cardiovascular - Adult Goal: Maintains optimal cardiac output and hemodynamic stability Description: INTERVENTIONS: Outcome: Progressing Goal: Absence of cardiac dysrhythmias or at baseline Description: INTERVENTIONS: Outcome: Progressing Problem: Infection - Adult Goal: Infections are decreased or avoided Description: INTERVENTIONS: Outcome: Progressing Problem: Metabolic/Fluid and Electrolytes - Adult Goal: Electrolytes maintained within normal limits Description: INTERVENTIONS: Outcome: Progressing Goal: Hemodynamic stability and optimal renal function maintained Description: INTERVENTIONS: Outcome: Progressing Problem: Hematologic - Adult Goal: Maintains hematologic stability Description: INTERVENTIONS: Outcome: Progressing Problem: Musculoskeletal - Adult Goal: Return mobility to safest level of function Description: INTERVENTIONS: Outcome: Progressing Goal: Return ADL status to a safe level of function Description: INTERVENTIONS: Outcome: Progressing Problem: Skin/Tissue Integrity - Adult Goal: Skin integrity remains intact Description: INTERVENTIONS: Outcome: Progressing Goal: Incisions, wounds, or drain sites healing without S/S of infection Description: INFECTIONS: Outcome: Progressing Goal: Oral mucous membranes remain intact Description: INTERVENTIONS: Outcome: Progressing Problem: Nutrient: Increased nutrient needs (specify) Goal: Total intake will meet estimated nutrient needs Outcome: Progressing [employer] * José Luis Gomez APRN-CNP - 03/22/2024 11:32 AM CST Images from the original note were not included. [facility] Internal Medicine Progress Note Name: Russ Burciaga Room/Bed: [facility]/ : 1945 78 year old PCP: Timothy Banks MD Admit Date/Time: 03/13/2024 7:14 PM LOS: 9 Subjective Interval History: Patient seen awake and alert sitting up in recliner, breathing RA in NAD. Denies acute fever, chills, chest pain, shortness of breath. Denies nausea, vomiting, diarrhea, constipation. Current plan remains: cont chemo per heme/onc with possible d/c 03/23. 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 Patient was admitted to medicine with oncology consult, he underwent a repeat bone marrow biopsy on03/15 which revealed acute myeloid leukemia. Chemotherapy was started 03/19/2024 with decitabine and venetoclax. Objective Current Facility-Administered Medications Medication Dose Route Frequency Provider Last Rate Last Admin 0.9% NaCl injection 3 mL 3 mL Intracatheter q8h Ted Soler MD 3 mL at 03/21/242133 And 0.9% NaCl injection 1-10 mL 1-10 mL Intracatheter PRN Ted Soler MD acetaminophen (Tylenol) tablet 650 mg 650 mg Oral q4h PRN José Luis Gomez APRN-CNP allopurinol (Zyloprim) tablet 300 mg 300 mg Oral QDAY AFTER BREAKFAST Sandro Smith MD 300 mg at 03/22/24 0838 apixaban (Eliquis) tablet 2.5 mg 2.5 mg Oral BID Caity Ortiz APRN-WIRE MILL OPERATOR 2.5 mg at 03/22/24 0838 decitabine (Dacogen) 45 mg in 0.9% NaCl IV 119 mL infusion 20 mg/m2 (Treatment Plan Recorded) Intravenous Once Cindy Garcia MD dilTIAZem coated beads 24hr (Cardizem CD) capsule 120 mg 120 mg Oral QDAY Ted Soler MD 120 mg at 03/22/24 0838 lactated ringers infusion Intravenous Continuous José Luis Gomez APRN-CNP 50 mL/hr at 03/22/24 1035 Rate Change at 03/22/24 1035 levoFLOXacin (Levaquin) tablet 500 mg 500 mg Oral q24h Ted Soler MD 500 mg at 03/22/24 0838 ondansetron (disintegrating) (Zofran ODT) tablet 8 mg 8 mg Oral BID PRN Cindy Garcia MD pantoprazole EC (Protonix) tablet 40 mg 40 mg Oral QDAY Ted Soler MD 40 mg at 03/22/24 0838 polyethylene glycol 3350 (Miralax) packet 17 g 17 g Oral QDAY Robby Miller MD 17 g at 03/22/24 0838 posaconazole (Noxafil) tablet 300 mg 300 mg Oral QDAY WITH DINNER Ted Soler MD 300 mg at105/22/23 1651 prochlorperazine (Compazine) injection 10 mg 10 mg Intravenous q6h PRN Cindy Garcia MD prochlorperazine (Compazine) tablet 10 mg 10 mg Oral q6h PRN Cindy Garcia MD senna (Senokot) tablet 17.2 mg 17.2 mg Oral QDAY Caity Ortiz APRN-WIRE MILL OPERATOR 17.2 mg at 03/22/24 0838 valACYclovir (Valtrex) tablet 500 mg 500 mg Oral BID Ted Soler MD 500 mg at 03/22/24 0838 venetoclax (Venclexta) tablet 100 mg 100 mg Oral QDAY WITH FOOD Cindy Garcia MD 100 mg at 03/22/24 0840 Wt Readings from Last 3 Encounters: 03/21/24 98.2 kg (216 lb 6.4 oz) 03/04/24 100.2 kg (221 lb) Vitals: Temp: [98.3 ??F (36.8 ??C)-99.3 ??F (37.4 ??C)] 98.5 ??F (36.9 ??C) Pulse: [65-100] 100 Resp: [18] 18 BP: (125-155)/(65-81) 155/81 Weight change: Intake/Output Summary (Last 24 hours) at 03/22/2024 1133 Last data filed at 03/22/2024 0726 Gross per 24 hour Intake 1387.98 ml Output 2850 ml Net -1462.02 ml Physical Exam Vitals reviewed. Constitutional: General: He is not in acute distress. Appearance: He is not ill-appearing, toxic-appearing or diaphoretic. HENT: Head: Atraumatic. Ears: Comments: Hearing intact to voice Eyes: General: No scleral icterus. Extraocular Movements: Extraocular movements intact. Conjunctiva/sclera: Conjunctivae normal. Cardiovascular: Rate and Rhythm: Normal rate and regular rhythm. Heart sounds: No friction rub. No gallop. Pulmonary: Effort: Pulmonary effort is normal. No respiratory distress. Breath sounds: Normal breath sounds. Comments: Room air Abdominal: General: Bowel sounds are normal. Palpations: Abdomen is soft. Tenderness: There is no abdominal tenderness. There is no guarding. Musculoskeletal: General: No deformity. Cervical back: No rigidity. Right lower leg: No edema. Left lower le+ Edema present. Skin: General: Skin is warm and dry. Neurological: Mental Status: He is alert and oriented to person, place, and time. Mental status is at baseline. Psychiatric: Mood and Affect: Mood normal. Behavior: Behavior normal. Thought Content: Thought content normal. Labs: CBC: Recent Labs Lab Units 03/22/24 0658 03/21/24 0347 03/20/24 0628 WBC x10E9/L 0.5* 0.3* 0.7* RBC x10E12/L 3.83* 3.81* 4.01* HGB g/dL 10.9* 10.8* 11.6* HCT % 33.2* 32.7* 34.4* BMP: Recent Labs Lab Units 03/22/24 0658 03/21/2434603/20/24 1607 NA mmol/L 141 141 143 CL mmol/L 110* 110* 110* CO2 mmol/L 24 24 23 BUN mg/dL 11 15 16 CREATININE mg/dL 1.11 1.27* 1.32* CALCIUM mg/dL 8.6 8.6 8.9 Magnesium: Recent Labs Component Name 03/22/24 0658 03/21/24 0347 03/20/24 1607 MAGNESIUM 1.9 1.8 2.0 Phosphorus: Recent Labs Lab Units 03/22/24 0658 03/21/2434603/20/24 1607 PHOS mg/dL 2.8 2.9 3.5 Coagulation: Recent Labs Lab Units 03/22/24 0658 03/21/24 03403/20/24 0628 PT Seconds 17.5* 17.4* 17.1* INR 1.5 1.5 1.4 Endocrine: No results for input(s): TSH , A1C in the last 168 hours. LFTs: Recent Labs Lab Units 03/22/24 0658 03/21/2434603/20/24 1607 AST U/L 19 14 15 ALT U/L 25 18 18 TBILI mg/dL 0.9 0.9 0.7 ALB g/dL 2.9* 3.1* 3.3* Micro: Microbiology Results (Displays last 21 days for this encounter ONLY) Procedure Component Value - Date/Time CYTOMEGALOVIRUS (CMV) QUANTITATIVE PLASMA [[id number]] (Normal) Collected: 03/13/24 2326 Lab Status: Final result Specimen: Blood Updated: 03/14/24 0900 CMV Quant by PCR, Interp Not detected Narrative: The Cytomegalovirus (CMV) DNA analysis utilized a plasma sample, real-time PCR (qPCR), and is reported as Not Detected, Detected (<35 IU/mL), 35 - 10,000,000 IU/mL, or >10,000,000 IU/mL The analytic sensitivity (LOD) of the assay is 35 IU/mL. Linear range of the assay is 35 - 10,000,000 IU/ml. The detection/quantitation of CMV DNA in plasma [...] FDA approved test methodology Bruce sharon CMV. QUINN-RICH[place] VIRUS QUANT BLOOD STL [[id number]] Collected: 03/13/242325 Lab Status: Final result Specimen: Blood Updated: 03/14/24855 EBV Quant by PCR, Interp Not detected Specimen Type Plasma Narrative: The Quinn-[place] viral (EBV) DNA analysis utilized a plasma sample, real-time PCR (qPCR), and is reported as Not Detected, Detected (<35 IU/mL), Quantity (IU/mL) or >100,000,000 IU/mL. The analytic sensitivity (LOD) of the assay is 35 IU/mL. The linear range is from 35 IU/mL to 100,000,000 IU/mL. Values less than 35 IU/mL are reported as Detected (<35 IU/mL). Values greater stza279,000,000 IU/mL are reported as >100,000,000 IU/mL. The [...] FDA approved test methodology Bruce sharon EBV. Imaging: No results found. Echocardiogram 03/15/2024: Summary * The left ventricle is normal in size, with hyperdynamic systolic function and an estimated ejection fraction of 73 % by biplane method of disks. Left ventricular wall motion is normal. * The left ventricular mass is mildly increased with concentric hypertrophy with a prominent basal septum. * The left ventricular diastolic function is consistent with grade II diastolic dysfunction. * Right ventricle is normal in size with normal systolic function. * The left atrium is moderately dilated with a left atrial volume index of 46 ml/m2 by BP MOD. * The pulmonary artery systolic pressure is mildly elevated, 39 mmHg. * There is mild tricuspid valve regurgitation. 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 PLAN -currently day 4 of HMA w/ decitabine & venetoclax (heme/onc driven) -heme/onc following, likely d/c home after cycle complete on 03/23 -cont OI PPX per heme/onc: levofloxacin 500mg QD, posaconazole 300mg QD, valtrex 500mg BID -cont TLS ppx w/ mIVF @ 50mL/hr + allopurinol 300mg daily -cont trend/monitoring labs: TLS q12h & DIC daily per heme/onc -oncology labs pending #HTN, POA, stable #CAD, POA, stable ECHO 03/15 w/ EF 73%, hypertrophy, and G2DD. 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 (2004, 2006, 2011) 2005: DVT/PPE (warfarin x6 mos) 2006: RLE DVT (warfarin restarted) 2012: LLE DVT (switched to eliquis BID) PLAN -was holding eliquis in s/o thrombocytopenia, restarted eliquis 2.5mg BID as PLT now > 30 > if PLT drop < 30 need to d/c eliquis #CKDs3b, POA, stable Creat 1.32 -> 1.27 -> 1.11, GFR 55 -> 57 -> 68 PLAN -avoid nephrotoxins as able, avoid NSAIDs -cont mIVF @ 50mL/hr (reduced d/t developing LLE swelling c/f fluid volume overload) #COPD, stable #QAMAR, stable -cont symbicort & PRN albuterol Inpatient Checklist -LDA: PIV -Antibiotic end date: N/A -Consults: Heme/Onc -Diet: DIET TRANSPLANT/NEUTROPENIC DIETARY NUTRITION SUPPLEMENTS ONCE -DVT Prophylaxis: Apixaban -Code Status: Full Code -Dispo: Cont inpatient treatment, likely d/c 03/23 after chemo cycle complete. José Luis Gomez [facility] ASCOM # [id number] (7a-5p) Non-urgent messages may be sent through [employer] Date of service: 03/22/2024 Attending Physician: Josh Zapata MD The total time spent was 40 minutes performing chart preparation, review of data and visit with thepatient, [id number]: I addressed a chronic illness with severe exacerbation/progression/side effect and/or an acute illness/injury that poses a threat to life or bodily functions (as documented above), 55123/53403: I reviewed the results of a unique test, ordered a unique test, or performed an assessment requiring an independent historian (as documented above), and 29181/[id number]: I discussed the management of the patient and/or the interpretation of a test with nursing staff, the care coordination team and all relevant consultants. [employer] * Kimi Mireles RD/SHASHANK - 03/22/2024 10:53 AM CST BRIEF SYNOPSIS: Nutrition Risk Identified but does not meet malnutrition criteria. Nutrition Plan: Current diet order: Neutropenic +Ensure High Protein (160 kcals, 16 g protein, 19 g carbohydrate) BID w/ meals Recommendation to Physician: n/a CLINICAL NUTRITION ASSESSMENT: Pt screened for length of stay day nine. Patient is on transplant/neutropenic diet consuming 75-100% of meals consistently. Monitoring weight. Chemotherapy started on 03/19. Last BM 03/17. Will order above supplement to aid in meeting protein demands, however noted possible DC tomorrow. Med/Surg History and Clinical Diagnoses: 78 yo M who was diagnosed with history of chronic recurrent DVTs on who was diagnosed with chronic leukopenia in 2022 presented with LLQ abdominal pain and loose stool, diagnosed with diverticulitis at the end of December 2023. Labs notable for WBC 1.8, CT A/P negative for hepatosplenomegaly. Imaging suggestive of pulmonary opacities likely infection. Underwent treatment for diverticulitis as well as Neupogen for neutropenia. Discharged with a WBC of 18.8. Height: 182.9 cm (6') BMI: Body mass index is 29.35 kg/m??. BMI Range: Overweight IBW/lb (Calculated) Male: 178 Recent Weights/Methods 03/04/2024 1329 03/13/2024 1925 03/13/2024 2248 03/15/2024 1217 03/21/2024 0405 Weight: 100.2 kg (221 lb) 99.2 kg (218 lb 9.6 oz) -- 98.9 kg (218 lb) 98.2 kg (216 lb 6.4 oz) Weight Method : -- -- Standing scale -- Standing scale Unintentional weight change: reviewed, monitoring PO INTAKE Current diet order: Neutropenic Nutrition recommendation: alter/change nutrition order Food Allergies: No known food allergies Last % Meal Taken: 75 % (03/21/24 1300) 48 hr PO INTAKE % Meal Taken Av % Min: 75 % Max: 75 % Supplement(s) Consumed- Last 48 hours None Pain affecting intake: No Chewing/Swallowing: None GI Concerns: None Stools: Stools (# of stools): 0 (03/17/24 1411) Stool Appearance : Formed (03/16/24 1530) Skin/Wound: WDL Estimated Needs: KCAL: 8180-4907 (30-35kcal/kg of IBW) Protein (g): 97-113 (1.2-1.4gm/kg of IBW) Fluid (ml): 1 ml/kcal Needs based on: Kcal/kg- (Comment) (81kg of IBW) Recommended Access Route: PO Labs: Recent Labs Component Name 03/22/2458 03/21/247 03/20/24 1607 NA 141 141 143 POTASSIUM 3.8 3.8 4.1 CO2 24 23 BUN 11 15 16 CREATININE 1.11 1.27* 1.32* GLUCOSE 103* 115* 112* CALCIUM 8.6 8.6 8.9 ALT 25 18 18 ALKPHOS 97 100 110 AST 19 14 15 EGFR 68* 57* 55* Recent Labs Component Name 03/22/2458 03/21/247 03/20/24 1607 PHOS 2.8 2.9 3.5 Recent Labs Component Name 03/22/24 0658 03/21/24 0347 03/20/24 1607 MAGNESIUM 1.9 1.8 2.0 Recent Labs Component Name 03/22/24 0658 03/21/24 0347 03/20/24 0628 HGB 10.9* 10.8* 11.6* HCT 33.2* 32.7* 34.4* No results for input(s): HGBA1C in the last 52703 hours.No data found. MEDICATIONS FOR CURRENT ENCOUNTER: SCHEDULED MEDICATIONS: 0.9% NaCl injection 3 mL, Intracatheter, q8h allopurinol (Zyloprim) tablet 300 mg, Oral, QDAY AFTER BREAKFAST apixaban (Eliquis) tablet 2.5 mg, Oral, BID decitabine (Dacogen) 45 mg in 0.9% NaCl IV 119 mL infusion, Intravenous, Once dilTIAZem coated beads 24hr (Cardizem CD) capsule 120 mg, Oral, QDAY levoFLOXacin (Levaquin) tablet 500 mg, Oral, q24h pantoprazole EC (Protonix) tablet 40 mg, Oral, QDAY polyethylene glycol 3350 (Miralax) packet 17 g, Oral, QDAY posaconazole (Noxafil) tablet 300 mg, Oral, QDAY WITH DINNER senna (Senokot) tablet 17.2 mg, Oral, QDAY valACYclovir (Valtrex) tablet 500 mg, Oral, BID venetoclax (Venclexta) tablet 100 mg, Oral, QDAY WITH FOOD [COMPLETED] decitabine (Dacogen) 45 mg in 0.9% NaCl IV 119 mL infusion, Intravenous, Once CONTINUOUS MEDICATIONS: lactated ringers infusion, Intravenous, Continuous PRN MEDICATIONS: 0.9% NaCl injection 1-10 mL, Intracatheter, PRN acetaminophen (Tylenol) tablet 650 mg, Oral, q4h PRN ondansetron (disintegrating) (Zofran ODT) tablet 8 mg, Oral, BID PRN prochlorperazine (Compazine) injection 10 mg, Intravenous, q6h PRN prochlorperazine (Compazine) tablet 10 mg, Oral, q6h PRN Edema RLE Edema: Mild pitting, slight indentation (03/22/24 0801) LLE Edema: Mild pitting, slight indentation (03/22/24 08) Nutrition Diagnostic Statement: Increased nutrient needs related to:: cancer as evidenced by:: estimated protein needs ..;estimated energy needs .. Nutrition Diagnostic Statement Progress: New diagnostic statement established Nutrition Intervention: Meals and snacks:;Medical Food Supplements: Monitoring: GI, PO intake, WT, labs, medications Monitor per nutrition guidelines. Evaluation: Nutrition Goal: Total intake will meet estimated nutrient needs Nutrition Goal Timeframe: Throughout stay Nutrition Goal Progress: New goal established Ascom [id number] [employer] * Zach Johnson RN - 03/22/2024 10:43 AM CST Patient with chemo at 1300. No new issues. Problem: Fall Risk Goal: Fall risk and fall related injury risk are minimized (interventions related to the fall risk can be found in the flowsheet documentation) Outcome: Progressing Problem: Pain/Discomfort Goal: Patient exhibits reduced pain/discomfort as evidenced by pain scores Outcome: Progressing Goal: Patient uses pharmacological and non-pharmacological pain management strategies. Outcome: Progressing Goal: Patient verbalizes acceptable level of pain relief and ability to engage in desired activity. Outcome: Progressing Problem: Infection Goal: Signs and symptoms of infections are decreased or avoided Outcome: Progressing [employer] * Sandro Smith MD - 03/22/2024 6:56 AM CST Images from the original note were not included. HEMATOLOGY/ONCOLOGY INPATIENT CONSULTATION NOTE Name: Russ Burciaga Age: [age] year old Date of : 1945 Date of Service: 03/13/2024 Requesting Provider / PCP: Timothy Banks MD Primary oncologist: Dr. Garcia Reason for Consult: AML HEMATOLOGY & ONCOLOGY HISTORY Principal Diagnosis: AML Current Therapy: Day 4 of HMA with decitabine and venetoclex SUBJECTIVE History of Present Illness 78 yo M who was diagnosed with 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 Labs notable for WBC 1.8, CT A/P negative for hepatosplenomegaly. Imaging suggestive of pulmonary opacities likely infection. Underwent treatment for diverticulitis as well as Neupogen for neutropenia. Discharged with a WBC of 18.8. Bone marrow performed February 12, 2024: at that time, WBC had dropped back down to 1.2: morphology: increased myeloblasts (up to 30% by morphology) with mild trilineagea dyspoiesis involving a hypercellular bone marrow (70-80%), absent iron stores, patchy and mild increase in reticulin fibrosis MF-1 Bone marrow, flow cytometric immunophenotyping showing 35% myeloblasts identified (20% by morphology), diagnostic immunophenotypic evidence of monoclonal B-cells, an aberrant T-cell population, or plasma cell neoplasm. Aspirate with 20% blasts. FISH PML/DANTE negative. BCR/ABL unable to be performed. FISH AML normal. Pending FISH AML+MDS, chromosome analysis and peripheral myeloid malignancies mutation panel. Since having the leukopenia, patient denies any symptoms of chest pain, dyspnea on exertion, nausea, vomiting, fevers, cough. Overall he says he feels well. No complaints this AM. He is afebrile, HDS. Electrolytes, creatinine, LFT's WNL. CBC showing WBC 1.2, Hgb 11.6 and plts 103. ANC 100. TLS and DIC labs with low concern for either TLS or DIC. Interval Events No acute events overnight. No new complaints. No transfusion requirements over the last 24 hours. 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 Past Surgical History: Procedure Laterality Date BONE MARROW BIOPSY (STL) 03/15/2024 Past Oncology History Cancer Staging No matching staging information was found for the patient. 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 Review of Systems Review of Systems Constitutional: Negative for chills, fever and weight loss. Respiratory: Negative for shortness of breath. Cardiovascular: Negative for chest pain. Gastrointestinal: Negative for abdominal pain, constipation, diarrhea, nausea and vomiting. Neurological: Negative for dizziness and headaches. Medications SCHEDULED MEDICATIONS: 0.9% NaCl injection 3 mL, Intracatheter, q8h allopurinol (Zyloprim) tablet 300 mg, Oral, QDAY AFTER BREAKFAST apixaban (Eliquis) tablet 2.5 mg, Oral, BID decitabine (Dacogen) 45 mg in 0.9% NaCl IV 119 mL infusion, Intravenous, Once dilTIAZem coated beads 24hr (Cardizem CD) capsule 120 mg, Oral, QDAY levoFLOXacin (Levaquin) tablet 500 mg, Oral, q24h pantoprazole EC (Protonix) tablet 40 mg, Oral, QDAY polyethylene glycol 3350 (Miralax) packet 17 g, Oral, QDAY posaconazole (Noxafil) tablet 300 mg, Oral, QDAY WITH DINNER senna (Senokot) tablet 17.2 mg, Oral, QDAY valACYclovir (Valtrex) tablet 500 mg, Oral, BID venetoclax (Venclexta) tablet 100 mg, Oral, QDAY WITH FOOD [COMPLETED] decitabine (Dacogen) 45 mg in 0.9% NaCl IV 119 mL infusion, Intravenous, Once CONTINUOUS MEDICATIONS: lactated ringers infusion, Intravenous, Continuous PRN MEDICATIONS: 0.9% NaCl injection 1-10 mL, Intracatheter, PRN acetaminophen (Tylenol) tablet 650 mg, Oral, q4h PRN ondansetron (disintegrating) (Zofran ODT) tablet 8 mg, Oral, BID PRN prochlorperazine (Compazine) injection 10 mg, Intravenous, q6h PRN prochlorperazine (Compazine) tablet 10 mg, Oral, q6h PRN Allergies Allergies Allergen Reactions Contrast-Gadolinium Agents For Mri Urticaria OBJECTIVE Physical Exam Vitals: 03/21/24 2135 03/21/24 2207 03/22/24 0001 03/22/24 0408 BP: 137/80 125/68 128/69 Pulse: 68 71 77 Resp: 18 18 18 18 Temp: 98.7 ??F (37.1 ??C) 99.3 ??F (37.4 ??C) 98.3 ??F (36.8 ??C) SpO2: 96% 97% 95% Weight: Height: Wt Readings from Last 3 Encounters: 03/21/24 98.2 kg (216 lb 6.4 oz) 03/04/24 100.2 kg (221 lb) PHYSICAL EXAM Physical Exam Constitutional: Appearance: Normal appearance. HENT: Head: Normocephalic and atraumatic. Mouth/Throat: Mouth: Mucous membranes are moist. Eyes: Extraocular Movements: Extraocular movements intact. Conjunctiva/sclera: Conjunctivae normal. Cardiovascular: Rate and Rhythm: Normal rate and regular rhythm. Pulmonary: Effort: No respiratory distress. Abdominal: General: Abdomen is flat. Bowel sounds are normal. Palpations: Abdomen is soft. Neurological: General: No focal deficit present. Mental Status: He is alert and oriented to person, place, and time. Laboratory Results Recent Labs Component Name 03/21/24 0347 03/20/24 0628 03/19/24 0623 03/18/24 0833 WBC 0.3* 0.7* 0.8* 0.9* RBC 3.81* 4.01* 4.05* 4.46 HGB 10.8* 11.6* 11.7* 12.7* HCT 32.7* 34.4* 34.6* 38.9 MCV 85.8 85.8 85.4 87.2 MCHC 33.0 33.7 33.8 32.6 PLTCOUNT 75* 82* 87* 89* NEUTABS - 0.11* 0.15* 0.13* 0.21* 0.16* 0.22* LYMPHABS - 0.55* 0.52* 0.64* Recent Labs Component Name 03/21/24 0347 03/20/24 1607 03/20/24 0628 POTASSIUM 3.8 4.1 3.9 CO2 24 23 23 BUN 15 16 17 CREATININE 1.27* 1.32* 1.34* EGFR 57* 55* 54* GLUCOSE 115* 112* 111* CALCIUM 8.6 8.9 8.9 MAGNESIUM 1.8 2.0 2.0 PHOS 2.9 3.5 3.6 ALT 18 18 17 AST 14 15 14 ALKPHOS 100 110 92 Pathology Results Personally reviewed and summarized above in Hematology & Oncology History Radiology Results Personally reviewed and summarized above in Hematology & Oncology History ASSESSMENT Russ Burciaga is a 78 year old male with: Acute leukemia: Possible history of MDS evolving into acute leukemia: Chronic Leukopenia: Recent flow suggestive of acute leukemia but not a member service representative sample due to low cellularity FISH PML/DANTE negative BCR/ABL unable to be performed FISH AML normal Pending FISH AML+MDS, chromosome analysis Myeloid malignancies mutation panel Seems to be slowly proliferating disease which may explain the lack of symptoms or concerns typically seen in acute leukemias, behaves like myelodysplastic disease despite the presence of >20% blasts could becoming acute leukemia from MDS; concern for TLS and DIC is low at this time 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 Bone marrow biopsy 03/15: Bone marrow, aspirate, clot section, and core biopsy: - Acute myeloid leukemia Immunohistochemistry performed show ~30% of marrow cellularity to represent blasts by CD34 and CD117. P53 is not expressed on blasts. Myeloid Maturation: left-shifted with increased blasts and dysmyelopoiesis. Erythroid Maturation: normal. Megakaryocyte morphology: dysplastic. History of DVT/PE, on Eliquis: 2004: DVT/PE following hiatal hernia repair s/p Clarkrange filter placement; warfarin x6 mos 2006: RLE DVT after warfarin discontinuation-->warfarin restarted 2012: LLE DVT occurred after re-initiation of warfarin after holding for a SBO (believed to be 2/2 viral gastroenteritis); treated with NG tube placement and NPO received lovenox in the hospital-->1-2 days after resuming warfarin, noticed RLE pain-->recurrent RLE clot-->switched to Eliquis BID Mutation testing for NPM1, FLT3, and TP53 are all negative Concern for TLS, improving - Uric acid at 8.1, calcium phosphorus score < 44; will hold off on rasburicase for now - Uric acid improving at 6.7 as of 03/21 RECOMMENDATIONS - Continue with HMA treatment, now day 4 of decitabine and venetoclex - Continue allopurinol 300 mg daily and 100 mL/hour LR infusion for TLS ppx - Continue to check TLS labs (LDH, uric acid, K, calcium and phosphorus) every 12 hours - Please obtain a full ID workup (BCx, UA, CXR) if there is concern for infection; right now concern is low - If uric acid > 7-8 and concern for TLS, may need to give IV rasburicase. Would contact Heme Fellow if concerned. Currently TLS labs are reassuring that concern for TLS is low. -OI ppx: fungal/bacteria/viral/PJP: Levofloxacin 500 mg daily. Posaconazole 300 mg daily. Valtrex 500 mg BID. --Recommend Trend CBC with differential, LFT, BMP; DIC labs (PT/D- dimer/Fibrinogen) daily --TLS labs every 12 hours --IVF: 50 mL/hour LR --TLS ppx: allopurinol 300 mg daily --GI ppx: protonix --DVT ppx: Eliquis 2.5 mg -> continue to monitor platelets, if he drops below 30, he will need to discontinue Eliquis --Labs and frequency: TLS every 12 hours/DIC daily for now --Access: PIV --Dispo: inpatient Transfusion parameters: --PRBC to keep Hgb >7 or if symptomatic from anemia. Only use Leukoreduced and irradiated blood products. --PLT transfusion to keep PLT >10 K; but if bleeding, keep PLT >20K for minor bleeds and >50K for major bleeds, if possible. PLT >50K is adequate for most invasive procedures. PLT~100K isadequate for neurosurgical interventions. --Does not need FFP/cryo if not bleeding. If bleeding, keep INR <1.8 with FFP and fibrinogen >100 with cryo (<150 if signs of bleeding). 1 unit of cryoprecipitate increases fibrinogen by approx 7. --After a platelet transfusion, please repeat platelet count, 15 minutes after finishing the transfusion. Recommend Q8h strict In and Out monitoring and Daily Weight for all patients on active Chemotherapyor getting IV fluids. If patient gets platelet transfusion please check repeat plt count at 15 minutes post transfusion. If patient spike fever again > 100.3, please take Stat blood cultures, and urine culture. Thank you for the opportunity to participate in the care of this patient. Hem/Onc consult service will continue to follow. Please don't hesitate to contact hem/onc consult fellow via the catalyst recovery operator or AMION if any questions or clarifications. Don Smith MD Internal Medicine Resident [facility] [employer] Associated attestation - Fab Lopez MD - 03/22/2024 4:17 PM CHAR [employer] ATTENDING ATTESTATION Date of service: 03/22/2024 I personally interviewed and examined Russ Burciaga on rounds with the resident on 03/22/2024. I agree with the findings and plan of care as documented by the resident. 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 Treatment plan is decitabine plus venetoclax. Today is C1D4 of chemotherapy. Continue supportive care for pancytopenia. Mutation testing for NPM1, FLT3, and TP53 are all negative. Last dose of decitabine is tomorrow. Potential discharge after completed. Fab Lopez MD, PhD Hematology/Oncology * Jorge Alberto Alaniz - 03/21/2024 11:09 AM CST Music Therapy Progress Note Start Time: 950 End Time: 1030 Music Therapy Goals: Develop rapport, Increase meaningful social interaction, and Increase spiritual support Intervention Provided: Provide familiar / significant music, Provide opportunities for social interaction, and Provide patient-defined spiritual music Therapy Type: Individual Therapy Patient Response: Appropriate Affect: Mood, appropriate Treatment Modality: Music Therapy Music Therapist Jorge Alberto Alaniz visited patient in [facility] room. Patient was observed sitting up in bed, alert and oriented. Patient's was present and participated throughout the session. During interventions, Patient smiled, sang, made eye contact, and moved in time with the music. Patient engaged in emotional expression and socializing after each intervention. At conclusion of session, no nonverbal indicators of distress observed. Jorge Alberto Alaniz, [facility], [place] 03/21/2024 11:09 AM [employer] * José Luis Gomez APRN-CNP - 03/21/2024 10:29 AM CST [facility] Internal Medicine Progress Note Name: Russ Burciaga Room/Bed: [facility] 1945 78 year old PCP: Timothy Banks MD Admit Date/Time: 03/13/2024 7:14 PM LOS: 8 Subjective Interval History: Patient seen awake and alert resting in bed, breathing RA in NAD. Denies acute fever, chills, chestpain, shortness of breath. Denies nausea, vomiting, diarrhea, constipation. Current plan remains: cont chemo per heme/onc possible d/c 03/23. 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 Patient was admitted to medicine with oncology consult, he underwent a repeat bone marrow biopsy on03/15 which revealed acute myeloid leukemia. Chemotherapy was started 03/19/2024 with decitabine and venetoclax. Objective Current Facility-Administered Medications Medication Dose Route Frequency Provider Last Rate Last Admin 0.9% NaCl injection 3 mL 3 mL Intracatheter q8h Ted Soler MD 3 mL at 03/21/24 0908 And 0.9% NaCl injection 1-10 mL 1-10 mL Intracatheter PRN Ted Sloer MD allopurinol (Zyloprim) tablet 300 mg 300 mg Oral QDAY AFTER BREAKFAST Sandro Smith MD 300 mg at 03/21/24 0908 apixaban (Eliquis) tablet 2.5 mg 2.5 mg Oral BID Caity Ortiz APRN-WIRE MILL OPERATOR 2.5 mg at 03/21/24 0908 decitabine (Dacogen) 45 mg in 0.9% NaCl IV 119 mL infusion 20 mg/m2 (Treatment Plan Recorded) Intravenous Once Cindy Garcia MD dilTIAZem coated beads 24hr (Cardizem CD) capsule 120 mg 120 mg Oral QDAY Ted Soler MD 120 mg at 03/21/24 0908 lactated ringers infusion Intravenous Continuous Josh Zapata MD 75 mL/hr at 03/21/24 0907 Rate Change at 03/21/24 0907 levoFLOXacin (Levaquin) tablet 500 mg 500 mg Oral q24h Ted Soler MD 500 mg at 03/21/24 0908 ondansetron (disintegrating) (Zofran ODT) tablet 8 mg 8 mg Oral BID PRN Cindy Garcia MD pantoprazole EC (Protonix) tablet 40 mg 40 mg Oral QDAY Ted Soler MD 40 mg at 03/21/24 0908 polyethylene glycol 3350 (Miralax) packet 17 g 17 g Oral QDAY Robby Miller MD 17 g at 03/21/24 0908 posaconazole (Noxafil) tablet 300 mg 300 mg Oral QDAY WITH DINNER Ted Soler MD 300 mg at105/21/23 1700 prochlorperazine (Compazine) injection 10 mg 10 mg Intravenous q6h PRN Cindy Garcia MD prochlorperazine (Compazine) tablet 10 mg 10 mg Oral q6h PRN Cindy Garcia MD senna (Senokot) tablet 17.2 mg 17.2 mg Oral QDAY Caity Ortiz APRN-WIRE MILL OPERATOR 17.2 mg at 03/21/24 0908 valACYclovir (Valtrex) tablet 500 mg 500 mg Oral BID Ted Soler MD 500 mg at 03/21/24 0908 venetoclax (Venclexta) tablet 100 mg 100 mg Oral QDAY WITH FOOD Cindy Garcia MD 100 mg at 03/21/24 0910 Wt Readings from Last 3 Encounters: 03/21/24 98.2 kg (216 lb 6.4 oz) 03/04/24 100.2 kg (221 lb) Vitals: Temp: [98.3 ??F (36.8 ??C)-99.5 ??F (37.5 ??C)] 98.7 ??F (37.1 ??C) Pulse: [61-93] 73 Resp: [18] 18 BP: (111-148)/(50-80) 111/50 Weight change: Intake/Output Summary (Last 24 hours) at 03/21/2024 1029 Last data filed at 03/21/2024 0351 Gross per 24 hour Intake 2212.24 ml Output 1850 ml Net 362.24 ml Physical Exam Vitals reviewed. Constitutional: General: He is not in acute distress. Appearance: He is not ill-appearing, toxic-appearing or diaphoretic. HENT: Head: Atraumatic. Ears: Comments: Hearing intact to voice Eyes: General: No scleral icterus. Extraocular Movements: Extraocular movements intact. Conjunctiva/sclera: Conjunctivae normal. Cardiovascular: Rate and Rhythm: Normal rate and regular rhythm. Heart sounds: No friction rub. No gallop. Pulmonary: Effort: Pulmonary effort is normal. No respiratory distress. Breath sounds: Normal breath sounds. Abdominal: General: Bowel sounds are normal. Palpations: Abdomen is soft. Tenderness: There is no abdominal tenderness. There is no guarding. Musculoskeletal: General: No deformity. Cervical back: No rigidity. Right lower leg: No edema. Left lower leg: No edema. Skin: General: Skin is warm and dry. Neurological: Mental Status: He is alert and oriented to person, place, and time. Mental status is at baseline. Psychiatric: Mood and Affect: Mood normal. Behavior: Behavior normal. Thought Content: Thought content normal. Labs: CBC: Recent Labs Lab Units 03/21/24 0347 03/20/24 0628 03/19/24 0623 WBC x10E9/L 0.3* 0.7* 0.8* RBC x10E12/L 3.81* 4.01* 4.05* HGB g/dL 10.8* 11.6* 11.7* HCT % 32.7* 34.4* 34.6* BMP: Recent Labs Lab Units 03/21/24 0347 03/20/24 1607 03/20/24 0628 NA mmol/L 141 143 140 CL mmol/L 110* 110* 109* CO2 mmol/L 24 23 23 BUN mg/dL 15 16 17 CREATININE mg/dL 1.27* 1.32* 1.34* CALCIUM mg/dL 8.6 8.9 8.9 Magnesium: Recent Labs Component Name 03/21/24 0347 03/20/24 1607 03/20/24 0628 MAGNESIUM 1.8 2.0 2.0 Phosphorus: Recent Labs Lab Units 03/21/24 0347 03/20/24 1607 03/20/24 0628 PHOS mg/dL 2.9 3.5 3.6 Coagulation: Recent Labs Lab Units 03/21/24 0347 03/20/24 0628 03/19/24 0623 PT Seconds 17.4* 17.1* 17.7* INR 1.5 1.4 1.5 Endocrine: No results for input(s): TSH , A1C in the last 168 hours. LFTs: Recent Labs Lab Units 03/21/24 0347 03/20/24 1607 03/20/24 0628 AST U/L 14 15 14 ALT U/L 18 18 17 TBILI mg/dL 0.9 0.7 0.6 ALB g/dL 3.1* 3.3* 3.1* Micro: Microbiology Results (Displays last 21 days for this encounter ONLY) Procedure Component Value - Date/Time CYTOMEGALOVIRUS (CMV) QUANTITATIVE PLASMA [[id number]] (Normal) Collected: 03/13/24 2326 Lab Status: Final result Specimen: Blood Updated: 03/14/24 0900 CMV Quant by PCR, Interp Not detected Narrative: The Cytomegalovirus (CMV) DNA analysis utilized a plasma sample, real-time PCR (qPCR), and is reported as Not Detected, Detected (<35 IU/mL), 35 - 10,000,000 IU/mL, or >10,000,000 IU/mL The analytic sensitivity (LOD) of the assay is 35 IU/mL. Linear range of the assay is 35 - 10,000,000 IU/ml. The detection/quantitation of CMV DNA in plasma [...] FDA approved test methodology Bruce sharon CMV. QUINN-RCIHMOND VIRUS QUANT BLOOD STL [[id number]] Collected: 03/13/24 2326 Lab Status: Final result Specimen: Blood Updated: 03/14/24 0856 EBV Quant by PCR, Interp Not detected Specimen Type Plasma Narrative: The Quinn-[place] viral (EBV) DNA analysis utilized a plasma sample, real-time PCR (qPCR), and is reported as Not Detected, Detected (<35 IU/mL), Quantity (IU/mL) or >100,000,000 IU/mL. The analytic sensitivity (LOD) of the assay is 35 IU/mL. The linear range is from 35 IU/mL to 100,000,000 IU/mL. Values less than 35 IU/mL are reported as Detected (<35 IU/mL). Values greater qxpp427,000,000 IU/mL are reported as >100,000,000 IU/mL. The [...] FDA approved test methodology Bruce sharon EBV. Imaging: No results found. Echocardiogram 03/15/2024: Summary * The left ventricle is normal in size, with hyperdynamic systolic function and an estimated ejection fraction of 73 % by biplane method of disks. Left ventricular wall motion is normal. * The left ventricular mass is mildly increased with concentric hypertrophy with a prominent basal septum. * The left ventricular diastolic function is consistent with grade II diastolic dysfunction. * Right ventricle is normal in size with normal systolic function. * The left atrium is moderately dilated with a left atrial volume index of 46 ml/m2 by BP MOD. * The pulmonary artery systolic pressure is mildly elevated, 39 mmHg. * There is mild tricuspid valve regurgitation. 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 PLAN -currently day 3 of HMA w/ decitabine & venetoclax (heme/onc driven) -heme/onc following, possible d/c home after cycle complete on 03/23 -cont OI PPX per heme/onc: levofloxacin 500mg QD, posaconazole 300mg QD, valtrex 500mg BID -cont trend/monitoring labs: TLS q12h & DIC daily per heme/onc -oncology labs pending -mIVF @ 100mL/hr for TLS PPX per heme/onc recs, mIVF @ 75mL/hr d/t patient age 78 y/o #HTN, POA, stable #CAD, POA, stable ECHO 03/15 w/ EF 73%, hypertrophy, and G2DD. 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 (2004, 2006, 2011) 2005: DVT/PPE (warfarin x6 mos) 2006: RLE DVT (warfarin restarted) 2011: LLE DVT (switched to eliquis BID) PLAN -was holding eliquis in s/o thrombocytopenia, restart eliquis 2.5mg BID as PLT > 30 > if PLT drop < 30 need to d/c eliquis #CKDs3b, POA, stable Creat 1.32 -> 1.27, GFR 55 -> 57 PLAN -avoid nephrotoxins as able, avoid NSAIDs #COPD #QAMAR, stable -cont symbicort & PRN albuterol Inpatient Checklist -LDA: PIV -Antibiotic end date: N/A -Consults: Heme/Onc -Diet: DIET TRANSPLANT/NEUTROPENIC -DVT Prophylaxis: Apixaban -Code Status: Full Code -Dispo: Cont inpatient treatment, possible d/c 03/23 after chemo cycle complete. ROSANNA Garg-Scottie [facility] Medicine ASCOM # [id number] (7a-5p) Non-urgent messages may be sent through [employer] Date of service: 03/21/2024 Attending Physician: Josh Zapata MD The total time spent was 55 minutes performing chart preparation, review of data and visit with thepatient, [id number]: I addressed a chronic illness with severe exacerbation/progression/side effect and/or an acute illness/injury that poses a threat to life or bodily functions (as documented above), /63902: I reviewed the results of a unique test, ordered a unique test, or performed an assessment requiring an independent historian (as documented above), and /[id number]: I discussed the management of the patient and/or the interpretation of a test with nursing staff, the care coordination team and all relevant consultants. [employer] * Teresita Bolden RN - 03/21/2024 7:33 AM CST Care Coordination Progress Note Expected Discharge Date: 03/24/2024: Discharge Plan: Return home when ready. Pt is C1D3 of decitabine and venetoclex. IVF. Discharge needs dependent on response to clinical treatments. CM will continue following for planning of discharge needs. Family Support (Name and Phone): Extended Emergency Contact Information Primary Emergency Contact: rajwinder burciaga Address: [address] Mobile Relation: Significant other Transportation at Discharge: Family: READMISSION RISK SCORE is 10 at 7:33 AM 03/21/2024.: Name: Teresita Bolden RN [employer] * Sandro Smith MD - 03/21/2024 7:03 AM CST Images from the original note were not included. HEMATOLOGY/ONCOLOGY INPATIENT CONSULTATION NOTE Name: Russ Burciaga Age: [age] year old Date of : 1945 Date of Service: 03/13/2024 Requesting Provider / PCP: Timothy Banks MD Primary oncologist: Dr. 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 Labs notable for WBC 1.8, CT A/P negative for hepatosplenomegaly. Imaging suggestive of pulmonary opacities likely infection. Underwent treatment for diverticulitis as well as Neupogen for neutropenia. Discharged with a WBC of 18.8. Bone marrow performed February 12, 2024: at that time, WBC had dropped back down to 1.2: morphology: increased myeloblasts (up to 30% by morphology) with mild trilineagea dyspoiesis involving a hypercellular bone marrow (70-80%), absent iron stores, patchy and mild increase in reticulin fibrosis MF-1 Bone marrow, flow cytometric immunophenotyping showing 35% myeloblasts identified (20% by morphology), diagnostic immunophenotypic evidence of monoclonal B-cells, an aberrant T-cell population, or plasma cell neoplasm. Aspirate with 20% blasts. FISH PML/DANTE negative. BCR/ABL unable to be performed. FISH AML normal. Pending FISH AML+MDS, chromosome analysis and peripheral myeloid malignancies mutation panel. Since having the leukopenia, patient denies any symptoms of chest pain, dyspnea on exertion, nausea, vomiting, fevers, cough. Overall he says he feels well. No complaints this AM. He is afebrile, HDS. Electrolytes, creatinine, LFT's WNL. CBC showing WBC 1.2, Hgb 11.6 and plts 103. ANC 100. TLS and DIC labs with low concern for either TLS or DIC. Interval Events No acute events overnight. No new complaints. 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 Past Surgical History: Procedure Laterality Date BONE MARROW BIOPSY (STL) 03/15/2024 Past Oncology History Cancer Staging No matching staging information was found for the patient. 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 Review of Systems Review of Systems Constitutional: Negative for chills, fever and weight loss. Respiratory: Negative for shortness of breath. Cardiovascular: Negative for chest pain. Gastrointestinal: Negative for abdominal pain, constipation, diarrhea, nausea and vomiting. Neurological: Negative for dizziness and headaches. Medications SCHEDULED MEDICATIONS: 0.9% NaCl injection 3 mL, Intracatheter, q8h allopurinol (Zyloprim) tablet 300 mg, Oral, QDAY AFTER BREAKFAST apixaban (Eliquis) tablet 2.5 mg, Oral, BID decitabine (Dacogen) 45 mg in 0.9% NaCl IV 119 mL infusion, Intravenous, Once dilTIAZem coated beads 24hr (Cardizem CD) capsule 120 mg, Oral, QDAY levoFLOXacin (Levaquin) tablet 500 mg, Oral, q24h pantoprazole EC (Protonix) tablet 40 mg, Oral, QDAY polyethylene glycol 3350 (Miralax) packet 17 g, Oral, QDAY posaconazole (Noxafil) tablet 300 mg, Oral, QDAY WITH DINNER senna (Senokot) tablet 17.2 mg, Oral, QDAY valACYclovir (Valtrex) tablet 500 mg, Oral, BID venetoclax (Venclexta) tablet 100 mg, Oral, QDAY WITH FOOD [COMPLETED] decitabine (Dacogen) 45 mg in 0.9% NaCl IV 119 mL infusion, Intravenous, Once [COMPLETED] lactated ringers IV bolus, Intravenous, Once CONTINUOUS MEDICATIONS: lactated ringers infusion, Intravenous, Continuous PRN MEDICATIONS: 0.9% NaCl injection 1-10 mL, Intracatheter, PRN ondansetron (disintegrating) (Zofran ODT) tablet 8 mg, Oral, BID PRN prochlorperazine (Compazine) injection 10 mg, Intravenous, q6h PRN prochlorperazine (Compazine) tablet 10 mg, Oral, q6h PRN Allergies Allergies Allergen Reactions Contrast-Gadolinium Agents For Mri Urticaria OBJECTIVE Physical Exam Vitals: 03/20/24 1953 03/20/24 2152 03/21/24 0357 03/21/24 0405 BP: 119/66 148/80 118/68 Pulse: 68 90 93 Resp: 18 18 18 Temp: 98.7 ??F (37.1 ??C) 99.1 ??F (37.3 ??C) 99.5 ??F (37.5 ??C) SpO2: 99% 94% 96% Weight: 98.2 kg (216 lb 6.4 oz) Height: Wt Readings from Last 3 Encounters: 03/21/24 98.2 kg (216 lb 6.4 oz) 03/04/24 100.2 kg (221 lb) PHYSICAL EXAM Physical Exam Constitutional: Appearance: Normal appearance. HENT: Head: Normocephalic and atraumatic. Mouth/Throat: Mouth: Mucous membranes are moist. Eyes: Extraocular Movements: Extraocular movements intact. Conjunctiva/sclera: Conjunctivae normal. Cardiovascular: Rate and Rhythm: Normal rate and regular rhythm. Pulmonary: Effort: No respiratory distress. Abdominal: General: Abdomen is flat. Bowel sounds are normal. Palpations: Abdomen is soft. Neurological: General: No focal deficit present. Mental Status: He is alert and oriented to person, place, and time. Laboratory Results Recent Labs Component Name 03/21/24 0347 03/20/24 0628 03/19/24 0623 03/18/24 0833 WBC 0.3* 0.7* 0.8* 0.9* RBC 3.81* 4.01* 4.05* 4.46 HGB 10.8* 11.6* 11.7* 12.7* HCT 32.7* 34.4* 34.6* 38.9 MCV 85.8 85.8 85.4 87.2 MCHC 33.0 33.7 33.8 32.6 PLTCOUNT 75* 82* 87* 89* NEUTABS - 0.11* 0.15* 0.13* 0.21* 0.16* 0.22* LYMPHABS - 0.55* 0.52* 0.64* Recent Labs Component Name 03/21/24 0347 03/20/24 1607 03/20/24 0628 POTASSIUM 3.8 4.1 3.9 CO2 24 23 23 BUN 15 16 17 CREATININE 1.27* 1.32* 1.34* EGFR 57* 55* 54* GLUCOSE 115* 112* 111* CALCIUM 8.6 8.9 8.9 MAGNESIUM 1.8 2.0 2.0 PHOS 2.9 3.5 3.6 ALT 18 18 17 AST 14 15 14 ALKPHOS 100 110 92 Pathology Results Personally reviewed and summarized above in Hematology & Oncology History Radiology Results Personally reviewed and summarized above in Hematology & Oncology History ASSESSMENT Russ Burciaga is a 78 year old male with: Acute leukemia: Possible history of MDS evolving into acute leukemia: Chronic Leukopenia: Recent flow suggestive of acute leukemia but not a member service representative sample due to low cellularity FISH PML/DANTE negative BCR/ABL unable to be performed FISH AML normal Pending FISH AML+MDS, chromosome analysis Myeloid malignancies mutation panel Seems to be slowly proliferating disease which may explain the lack of symptoms or concerns typically seen in acute leukemias, behaves like myelodysplastic disease despite the presence of >20% blasts could becoming acute leukemia from MDS; concern for TLS and DIC is low at this time 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 Bone marrow biopsy 03/15: Bone marrow, aspirate, clot section, and core biopsy: - Acute myeloid leukemia Immunohistochemistry performed show ~30% of marrow cellularity to represent blasts by CD34 and CD117. P53 is not expressed on blasts. Myeloid Maturation: left-shifted with increased blasts and dysmyelopoiesis. Erythroid Maturation: normal. Megakaryocyte morphology: dysplastic. History of DVT/PE, on Eliquis: 2005: DVT/PE following hiatal hernia repair s/p Clarkrange filter placement; warfarin x6 mos 2005: RLE DVT after warfarin discontinuation-->warfarin restarted 2011: LLE DVT occurred after re-initiation of warfarin after holding for a SBO (believed to be 2/2 viral gastroenteritis); treated with NG tube placement and NPO received lovenox in the hospital-->1-2 days after resuming warfarin, noticed RLE pain-->recurrent RLE clot-->switched to Eliquis BID Concern for TLS, improving - Uric acid at 8.1, calcium phosphorus score < 44; will hold off on rasburicase for now - Uric acid improving at 6.7 as of 03/21 RECOMMENDATIONS - Continue with HMA treatment, now day 3 of decitabine and venetoclex - Continue allopurinol 300 mg daily and 100 mL/hour LR infusion for TLS ppx - Continue to check TLS labs (LDH, uric acid, K, calcium and phosphorus) every 12 hours - Please obtain a full ID workup (BCx, UA, CXR) if there is concern for infection; right now concern is low - If uric acid > 7-8 and concern for TLS, may need to give IV rasburicase. Would contact Heme Fellow if concerned. Currently TLS labs are reassuring that concern for TLS is low. -OI ppx: fungal/bacteria/viral/PJP: Levofloxacin 500 mg daily. Posaconazole 300 mg daily. Valtrex 500 mg BID. --Recommend Trend CBC with differential, LFT, BMP; DIC labs (PT/D- dimer/Fibrinogen) daily --TLS labs every 12 hours --IVF: 100 mL/hour LR --TLS ppx: allopurinol 300 mg daily --GI ppx: protonix --DVT ppx: Eliquis 2.5 mg -> continue to monitor platelets, if he drops below 30, he will need to discontinue Eliquis --Labs and frequency: TLS every 12 hours/DIC daily for now --Access: PIV --Dispo: inpatient Transfusion parameters: --PRBC to keep Hgb >7 or if symptomatic from anemia. Only use Leukoreduced and irradiated blood products. --PLT transfusion to keep PLT >10 K; but if bleeding, keep PLT >20K for minor bleeds and >50K for major bleeds, if possible. PLT >50K is adequate for most invasive procedures. PLT~100K isadequate for neurosurgical interventions. --Does not need FFP/cryo if not bleeding. If bleeding, keep INR <1.8 with FFP and fibrinogen >100 with cryo (<150 if signs of bleeding). 1 unit of cryoprecipitate increases fibrinogen by approx 7. --After a platelet transfusion, please repeat platelet count, 15 minutes after finishing the transfusion. Recommend Q8h strict In and Out monitoring and Daily Weight for all patients on active Chemotherapyor getting IV fluids. If patient gets platelet transfusion please check repeat plt count at 15 minutes post transfusion. If patient spike fever again > 100.3, please take Stat blood cultures, and urine culture. Thank you for the opportunity to participate in the care of this patient. Hem/Onc consult service will continue to follow. Please don't hesitate to contact hem/onc consult fellow via the catalyst recovery operator or [facility]ION if any questions or clarifications. Don Smith MD Internal Medicine Resident [facility] DUST CLEANER AND SALV[employer]ER Associated attestation - Fab Lopez MD - 03/21/2024 2:58 PM CHAR [employer] CLE[employer] SALVAGER ATTENDING ATTESTATION Date of service: 03/21/2024 I personally interviewed and examined Russ Burciaga on rounds with the resident on 03/21/2024. I agree with the findings and plan of care as documented by the resident. 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 Treatment plan is decitabine plus venetoclax. Today is C1D3 of chemotherapy. Continue supportive care for pancytopenia. Mutation testing for NPM1, FLT3, and TP53 are all negative. Fab Lopez MD, PhD Hematology/Oncology * Bassam Rodriguez RN - 03/21/2024 4:43 AM CST Patient resting in bed/sleeping w/ @ bedside. Remains A&Ox4 w/stable vitals signs and free from falls/injuries. Continues on lactated ringer's @ 75ml/hr w/no obvious adverse effects noted andno acute events occurring overnight. Care and monitoring of patient to continue. Problem: Fall Risk Goal: Fall risk and fall related injury risk are minimized (interventions related to the fall risk can be found in the flowsheet documentation) Outcome: Progressing Problem: Pain/Discomfort Goal: Patient exhibits reduced pain/discomfort as evidenced by pain scores Outcome: Progressing Goal: Patient uses pharmacological and non-pharmacological pain management strategies. Outcome: Progressing Goal: Patient verbalizes acceptable level of pain relief and ability to engage in desired activity. Outcome: Progressing Problem: Infection Goal: Signs and symptoms of infections are decreased or avoided Outcome: Progressing Problem: Respiratory - Adult Goal: Achieves optimal ventilation and oxygenation Description: INTERVENTIONS: Outcome: Progressing Problem: Cardiovascular - Adult Goal: Maintains optimal cardiac output and hemodynamic stability Description: INTERVENTIONS: Outcome: Progressing Goal: Absence of cardiac dysrhythmias or at baseline Description: INTERVENTIONS: Outcome: Progressing Problem: Infection - Adult Goal: Infections are decreased or avoided Description: INTERVENTIONS: Outcome: Progressing Problem: Metabolic/Fluid and Electrolytes - Adult Goal: Electrolytes maintained within normal limits Description: INTERVENTIONS: Outcome: Progressing Goal: Hemodynamic stability and optimal renal function maintained Description: INTERVENTIONS: Outcome: Progressing Problem: Hematologic - Adult Goal: Maintains hematologic stability Description: INTERVENTIONS: Outcome: Progressing Problem: Musculoskeletal - Adult Goal: Return mobility to safest level of function Description: INTERVENTIONS: Outcome: Progressing Goal: Return ADL status to a safe level of function Description: INTERVENTIONS: Outcome: Progressing Problem: Skin/Tissue Integrity - Adult Goal: Skin integrity remains intact Description: INTERVENTIONS: Outcome: Progressing Goal: Incisions, wounds, or drain sites healing without S/S of infection Description: INFECTIONS: Outcome: Progressing Goal: Oral mucous membranes remain intact Description: INTERVENTIONS: Outcome: Progressing [employer] * Caity Ortiz V., DRUM ATTENDANT-WIRE MILL OPERATOR - 03/20/2024 3:01 PM CST Images from the original note were not included. [facility] Internal Medicine Progress Note Name: Russ Burciaga Room/Bed: 705 : 1945 78 year old PCP: Timothy Banks MD Admit Date/Time: 03/13/2024 7:14 PM LOS: 7 Subjective Interval update: Patient seen and examined at bedside Patient denies sob, chest pain, palpitations, nausea, vomiting,any urinary or bowel habits changes. Had a first day of chemotherapy on 03/20, uric acid elevated 8.1, placed on IV fluids Hospital course: Erlin Solano is 78 y.o male with PMH of recurrent DVT on eliquis,chronic leukopenia( diagnosed in 2022), HTN, GERD, CAD present the the [facility] on 03/13 as direct admission from Oncology for further workup abnormal bone marrow biopsy concern for AML. Oncology consulted. Patient underwent bone marrow biopsy on 03/15 showed acute myeloid leukemia. Chemotherapy started on 03/19 with decitabine and venetoclex Objective Recent Vitals: Temp: [98.1 ??F (36.7 ??C)-98.4 ??F (36.9 ??C)] 98.3 ??F (36.8 ??C) Pulse: [66-71] 71 Resp: [18] 18 BP: (111-128)/(63-79) 111/66 Weight change: Intake/Output Summary (Last 24 hours) at 03/20/2024 1501 Last data filed at 03/20/2024 1413 Gross per 24 hour Intake 1932 ml Output 2100 ml Net -168 ml Physical Exam: Gen: Alert, cooperative, in no acute distress HEENT: NC/AT, EOMI, no nasal drainage, oropharynx clear Neck: Supple with full ROM CV: Regular S1 & S2, without murmur, rub or gallop. Lungs: Clear to auscultation bilaterally, no crackles, no wheezes Abdomen: BS+, soft, non-tender, non-distended. No rebound/guarding Extremities: Nontender with normal ROM, No edema noted Skin: Warm, dry, no rashes or wounds, Noted, the procedure looks has a dressing on, intact and clean Neuro: Alert and oriented to person, place, time and situation. No gross focal neurologic deficits noted Psych: Mood and affect appropriate and within normal limits Scheduled Medications: 0.9% NaCl 3 mL Intracatheter q8h allopurinol 300 mg Oral QDAY AFTER BREAKFAST apixaban 2.5 mg Oral BID dilTIAZem coated beads 24hr 120 mg Oral QDAY levoFLOXacin 500 mg Oral q24h pantoprazole EC 40 mg Oral QDAY polyethylene glycol 3350 17 g Oral QDAY posaconazole 300 mg Oral QDAY WITH DINNER senna 17.2 mg Oral QDAY valACYclovir 500 mg Oral BID venetoclax 100 mg Oral QDAY WITH FOOD PRN Medications: SALINE LOCK, INSERT AND MAINTAIN AND 0.9% NaCl AND 0.9% NaCl ondansetron (disintegrating) prochlorperazine prochlorperazine Continuous Infusions: lactated ringers, , Last Rate: 75 mL/hr at 03/20/24 1412 Laboratory Data Recent Labs Component Name 03/20/2462703/19/2423 03/18/24 0833 WBC 0.7* 0.8* 0.9* HGB 11.6* 11.7* 12.7* HCT 34.4* 34.6* 38.9 PLTCOUNT 82* 87* 89* MCV 85.8 85.4 87.2 Recent Labs Component Name 03/20/2462703/19/2423 03/18/24 0833 PT 17.1* 17.7* 15.8* INR 1.4 1.5 1.3 PTT 33.4 35.8 31.1 Recent Labs Component Name 03/20/2462703/19/2423 03/18/24 0833 NA 140 141 143 POTASSIUM 3.9 3.9 4.2 CL 109* 110* 110* CO2 23 25 23 BUN 17 12 13 CREATININE 1.34* 1.25* 1.30* Recent Labs Component Name 03/20/2462703/19/24 0623 03/18/24 0833 CALCIUM 8.9 9.2 9.5 PHOS 3.6 3.1 2.9 Recent Labs Component Name 03/20/2462703/19/2423 03/18/24 0833 PROT 6.1 6.2 6.7 ALB 3.1* 3.2* 3.5 ALKPHOS 92 104 118 AST 14 12 12 ALT 17 16 17 TBILI 0.6 0.8 0.8 No results for input(s): CKTOTAL , CKMBCK2 , TROPONINI in the last 41154 hours. No results for input(s): VANCORNDM , VANCTROUGH in the last 76415 hours. Microbiology Results (Displays last 21 days for this encounter ONLY) Procedure Component Value - Date/Time CYTOMEGALOVIRUS (CMV) QUANTITATIVE PLASMA [[id number]] (Normal) Collected: 03/13/242325 Lab Status: Final result Specimen: Blood Updated: 03/14/24 0900 CMV Quant by PCR, Interp Not detected Narrative: The Cytomegalovirus (CMV) DNA analysis utilized a plasma sample, real-time PCR (qPCR), and is reported as Not Detected, Detected (<35 IU/mL), 35 - 10,000,000 IU/mL, or >10,000,000 IU/mL The analytic sensitivity (LOD) of the assay is 35 IU/mL. Linear range of the assay is 35 - 10,000,000 IU/ml. The detection/quantitation of CMV DNA in plasma [...] FDA approved test methodology Bruce sharon CMV. QUINN-RICHMOND VIRUS QUANT BLOOD STL [[id number]] Collected: 03/13/242325 Lab Status: Final result Specimen: Blood Updated: 03/14/24 0856 EBV Quant by PCR, Interp Not detected Specimen Type Plasma Narrative: The Quinn-[place] viral (EBV) DNA analysis utilized a plasma sample, real-time PCR (qPCR), and is reported as Not Detected, Detected (<35 IU/mL), Quantity (IU/mL) or >100,000,000 IU/mL. The analytic sensitivity (LOD) of the assay is 35 IU/mL. The linear range is from 35 IU/mL to 100,000,000 IU/mL. Values less than 35 IU/mL are reported as Detected (<35 IU/mL). Values greater sumn897,000,000 IU/mL are reported as >100,000,000 IU/mL. The [...] FDA approved test methodology Bruce sharon EBV. Imaging No results found. Relevant labs and imaging data reviewed on [facility]. 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 daily, Valtrex 500 mg b.i.d., posaconazole 300 mg daily for OI ppx - IF was concern for infections obtained for ID workup blood culture, UA chest x-ray low concern for now - Transfusion parameters: - Keep hemoglobin> 7.0 and use leuko reduced and irradiated blood products - Platelets transfusion to keep platelets> 10 K, if but if bleeding keep platelets> 20 K withminor bleeds and 50 K for the major bleeds if possible. - Platelets above 50 K is adequate of most invasive procedure, platelets above 100 K is adequate for neurosurgical procedure -Do not use FFP and cryo if was not bleeding. If bleeding keep INR less than 1.8 with the FFP and fibrinogen more than 100 with Cryo ( < 150 if signs of bleeding), 1 unit to cryoprecipitate increased fibrinogen by approximately 7 # HTN (POA) stable # History of dysrhythmia- not present on admission- stable #CAD- stable - completed/ supportive work up- -Echo- from 01/27-ef- 77%, hypertensive LVH, mild Left atrial enlargement, mild MR/ AR/ TR, diastolic dysfunction -Ecg- previously showed PVC, RBBB, SVT on seeing cords EP but unclear current completed workup -Stress test- 08/30- abnormal myocardial perfusion for mild to core inferior and apical septal ischemia, left ventricular function within normal limits with ejection fractions 61% -Patient denies chest pain, or sob, palpitations - echo( 03/15/24)- ef- 73%, G2DD, mild TVR, mildly elevated PASP -Plan: -Continue Cardizem 120 mg p.o. daily - Continue telemetry # History of recurrent VTE- (POA) stable -Completed/ supportive work up - Diagnosed in 2004 with provoked DVT PE for when hiatal hernia repair, s/p Braxton filter placement, complete 6 months of Coumadin - recurrence 2005 with right lower extremity DVT, restarted Coumadin -LLE DVT found in 2011 while on Coumadin after holding for small bowel obstructions management, bridge with Lovenox at the time with right lower extremity pain found to have recurrent right LE DVT soswitch to Eliquis Patient has been taken Eliquis 5 mg b.i.d. - Plan: -Resume eliquis 2.5 mg bid po daily on 03/16 ( dose decreased from 5 to 2.5 mg, since patient is onposaconazole) # CKD stage 3 b (POA)- stable -Last creat from 03/04-04.19 -Plan: - Avoid nephrotoxins medication # COPD- not present on admission ( stable) -Plan: -Continue home Symbicort ( patient is taking his meds prn and p.r.n. albuterol) # QAMAR -stable Incidental findings requiring follow up: none Diet: DIET TRANSPLANT/NEUTROPENIC DVT Prophylaxis: SCDs only Code Status: Full Code Dispo: Continue inpatient treatment. Hernandezy Candidate?: No Electronically Signed By: Caity Ortiz APRN-WIRE MILL OPERATOR 03/20/2024 3:01 PM The total time spent was 20 minutes performing chart preparation, review of data and visit with thepatient, [id number]: I addressed a chronic illness with severe exacerbation/progression/side effect and/or an acute illness/injury that poses a threat to life or bodily functions (as documented above), [id number]: I reviewed the results of a unique test, ordered a unique test, or performed an assessment requiring an independent historian (as documented above), and [id number]: I discussed the management of the patient and/or the interpretation of a test with nursing staff, the care coordination team and all relevant consultants. DUST CLEANER AND SALVAGER * Sandro Smith MD - 03/20/2024 7:05 AM CST Images from the original note were not included. HEMATOLOGY/ONCOLOGY INPATIENT CONSULTATION NOTE Name: Russ Burciaga Age: [age] year old Date of : 1945 Date of Service: 03/13/2024 Requesting Provider / PCP: Timothy Banks MD Primary oncologist: Dr. 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 Labs notable for WBC 1.8, CT A/P negative for hepatosplenomegaly. Imaging suggestive of pulmonary opacities likely infection. Underwent treatment for diverticulitis as well as Neupogen for neutropenia. Discharged with a WBC of 18.8. Bone marrow performed February 12, 2024: at that time, WBC had dropped back down to 1.2: morphology: increased myeloblasts (up to 30% by morphology) with mild trilineagea dyspoiesis involving a hypercellular bone marrow (70-80%), absent iron stores, patchy and mild increase in reticulin fibrosis MF-1 Bone marrow, flow cytometric immunophenotyping showing 35% myeloblasts identified (20% by morphology), diagnostic immunophenotypic evidence of monoclonal B-cells, an aberrant T-cell population, or plasma cell neoplasm. Aspirate with 20% blasts. FISH PML/DANTE negative. BCR/ABL unable to be performed. FISH AML normal. Pending FISH AML+MDS, chromosome analysis and peripheral myeloid malignancies mutation panel. Since having the leukopenia, patient denies any symptoms of chest pain, dyspnea on exertion, nausea, vomiting, fevers, cough. Overall he says he feels well. No complaints this AM. He is afebrile, HDS. Electrolytes, creatinine, LFT's WNL. CBC showing WBC 1.2, Hgb 11.6 and plts 103. ANC 100. TLS and DIC labs with low concern for either TLS or DIC. Interval Events No acute events overnight. Patient ready to get started with treatment when possible. No symptomatic presentation at this time. Uric acid at 8.1 this AM, will start allopurinol 300 mg and 100 mL IVF with LR. 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 Past Surgical History: Procedure Laterality Date BONE MARROW BIOPSY (STL) 03/15/2024 Past Oncology History Cancer Staging No matching staging information was found for the patient. 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 Review of Systems Review of Systems Constitutional: Negative for chills, fever and weight loss. Respiratory: Negative for shortness of breath. Cardiovascular: Negative for chest pain. Gastrointestinal: Negative for abdominal pain, constipation, diarrhea, nausea and vomiting. Neurological: Negative for dizziness and headaches. Medications SCHEDULED MEDICATIONS: 0.9% NaCl injection 3 mL, Intracatheter, q8h apixaban (Eliquis) tablet 2.5 mg, Oral, BID decitabine (Dacogen) 45 mg in 0.9% NaCl IV 119 mL infusion, Intravenous, Once dilTIAZem coated beads 24hr (Cardizem CD) capsule 120 mg, Oral, QDAY levoFLOXacin (Levaquin) tablet 500 mg, Oral, q24h pantoprazole EC (Protonix) tablet 40 mg, Oral, QDAY polyethylene glycol 3350 (Miralax) packet 17 g, Oral, QDAY posaconazole (Noxafil) tablet 300 mg, Oral, QDAY WITH DINNER senna (Senokot) tablet 17.2 mg, Oral, QDAY valACYclovir (Valtrex) tablet 500 mg, Oral, BID venetoclax (Venclexta) tablet 100 mg, Oral, QDAY WITH FOOD [COMPLETED] decitabine (Dacogen) 45 mg in 0.9% NaCl IV 119 mL infusion, Intravenous, Once CONTINUOUS MEDICATIONS: PRN MEDICATIONS: 0.9% NaCl injection 1-10 mL, Intracatheter, PRN ondansetron (disintegrating) (Zofran ODT) tablet 8 mg, Oral, BID PRN prochlorperazine (Compazine) injection 10 mg, Intravenous, q6h PRN prochlorperazine (Compazine) tablet 10 mg, Oral, q6h PRN Allergies Allergies Allergen Reactions Contrast-Gadolinium Agents For Mri Urticaria OBJECTIVE Physical Exam Vitals: 03/19/24 1001 03/19/24 1628 03/19/24201103/20/24 0418 BP: 120/72 128/79 128/72 117/63 Pulse: 75 66 66 67 Resp: 18 18 18 18 Temp: 98.4 ??F (36.9 ??C) 98.3 ??F (36.8 ??C) 98.1 ??F (36.7 ??C) 98.4 ??F (36.9 ??C) SpO2: 95% 96% 94% 96% Weight: Height: Wt Readings from Last 3 Encounters: 03/15/24 98.9 kg (218 lb) 03/04/24 100.2 kg (221 lb) PHYSICAL EXAM Physical Exam Constitutional: Appearance: Normal appearance. HENT: Head: Normocephalic and atraumatic. Mouth/Throat: Mouth: Mucous membranes are moist. Eyes: Extraocular Movements: Extraocular movements intact. Conjunctiva/sclera: Conjunctivae normal. Cardiovascular: Rate and Rhythm: Normal rate and regular rhythm. Pulmonary: Effort: No respiratory distress. Abdominal: General: Abdomen is flat. Bowel sounds are normal. Palpations: Abdomen is soft. Neurological: General: No focal deficit present. Mental Status: He is alert and oriented to person, place, and time. Laboratory Results Recent Labs Component Name 03/19/24 0603/18/24 0833 03/17/24 0528 WBC 0.8* 0.9* 0.8* RBC 4.05* 4.46 3.89* HGB 11.7* 12.7* 11.1* HCT 34.6* 38.9 33.6* MCV 85.4 87.2 86.4 MCHC 33.8 32.6 33.0 PLTCOUNT 87* 89* 83* NEUTABS 0.13* 0.21* 0.16* 0.22* 0.14* 0.16* LYMPHABS 0.52* 0.64* 0.56* Recent Labs Component Name 03/19/24 0603/18/24 0833 03/17/24 0528 POTASSIUM 3.9 4.2 4.1 CO2 25 23 23 BUN 12 13 17 CREATININE 1.25* 1.30* 1.33* EGFR 59* 56* 54* GLUCOSE 108* 115* 114* CALCIUM 9.2 9.5 8.8 MAGNESIUM 2.0 2.0 2.0 PHOS 3.1 2.9 2.6* ALT 16 17 17 AST 12 12 14 ALKPHOS 104 118 112 Pathology Results Personally reviewed and summarized above in Hematology & Oncology History Radiology Results Personally reviewed and summarized above in Hematology & Oncology History ASSESSMENT Russ Burciaga is a 78 year old male with: Acute leukemia: Possible history of MDS evolving into acute leukemia: Chronic Leukopenia: Recent flow suggestive of acute leukemia but not a member service representative sample due to low cellularity FISH PML/DANTE negative BCR/ABL unable to be performed FISH AML normal Pending FISH AML+MDS, chromosome analysis Myeloid malignancies mutation panel Seems to be slowly proliferating disease which may explain the lack of symptoms or concerns typically seen in acute leukemias, behaves like myelodysplastic disease despite the presence of >20% blasts could becoming acute leukemia from MDS; concern for TLS and DIC is low at this time 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 Bone marrow biopsy 03/15: Bone marrow, aspirate, clot section, and core biopsy: - Acute myeloid leukemia Immunohistochemistry performed show ~30% of marrow cellularity to represent blasts by CD34 and CD117. P53 is not expressed on blasts. Myeloid Maturation: left-shifted with increased blasts and dysmyelopoiesis. Erythroid Maturation: normal. Megakaryocyte morphology: dysplastic. History of DVT/PE, on Eliquis: 2004: DVT/PE following hiatal hernia repair s/p Clarkrange filter placement; warfarin x6 mos 2005: RLE DVT after warfarin discontinuation-->warfarin restarted 2011: LLE DVT occurred after re-initiation of warfarin after holding for a SBO (believed to be 2/2 viral gastroenteritis); treated with NG tube placement and NPO received lovenox in the hospital-->1-2 days after resuming warfarin, noticed RLE pain-->recurrent RLE clot-->switched to Eliquis BID Concern for TLS - Uric acid at 8.1, calcium phosphorus score < 44; will hold off on rasburicase for now RECOMMENDATIONS - Continue with HMA treatment, now day 2 of decitabine and venetoclex - Will start allopurinol 300 mg daily and 100 mL/hour LR infusion for TLS ppx due to increased riskof TLS - Will check TLS labs (LDH, uric acid, K, calcium and phosphorus) every 12 hours - Please obtain a full ID workup (BCx, UA, CXR) if there is concern for infection; right now concern is low - If uric acid > 7-8 and concern for TLS, may need to give IV rasburicase. Would contact Heme Fellow if concerned. Currently TLS labs are reassuring that concern for TLS is low. -OI ppx: fungal/bacteria/viral/PJP: Levofloxacin 500 mg daily. Posaconazole 300 mg daily. Valtrex 500 mg BID. --Recommend Trend CBC with differential, LFT, BMP; DIC labs (PT/D- dimer/Fibrinogen) daily --TLS labs every 12 hours --IVF: 100 mL/hour LR --TLS ppx: allopurinol 300 mg daily --GI ppx: protonix --DVT ppx: none --Labs and frequency: TLS every 12 hours/DIC daily for now --Access: PIV --Dispo: inpatient --Transfusion parameters: --PRBC to keep Hgb >7 or if symptomatic from anemia. Only use Leukoreduced and irradiated blood products. --PLT transfusion to keep PLT >10 K; but if bleeding, keep PLT >20K for minor bleeds and >50K for major bleeds, if possible. PLT >50K is adequate for most invasive procedures. PLT~100K isadequate for neurosurgical interventions. --Does not need FFP/cryo if not bleeding. If bleeding, keep INR <1.8 with FFP and fibrinogen >100 with cryo (<150 if signs of bleeding). 1 unit of cryoprecipitate increases fibrinogen by approx 7. Thank you for the opportunity to participate in the care of this patient. Hem/Onc consult service will continue to follow. Please don't hesitate to contact hem/onc consult fellow via the catalyst recovery operator or AMION if any questions or clarifications. Don Smith MD Internal Medicine Resident [facility] DUST CLE[employer]ER [employer] SALV[employer]ER Associated attestation - Fab Lopez MD - 03/20/2024 11:55 AM CHAR [employer] CLE[employer] AND SALVAGER ATTENDING ATTESTATION Date of service: 03/20/2024 I personally interviewed and examined Russ Burciaga on rounds with the resident on 03/20/2024. I agree with the findings and plan of care as documented by the resident. 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 Treatment plan is azacitidine plus venetoclax. Today is C1D2 of chemotherapy. Continue supportive care for pancytopenia. Fab Lopez MD, PhD Hematology/Oncology * Caity Ortiz V., DRUM ATTENDANT-WIRE MILL OPERATOR - 03/19/2024 4:43 PM CST Images from the original note were not included. [facility] Internal Medicine Progress Note Name: Russ Burciaga Room/Bed: 705/01 : 1945 78 year old PCP: Timothy Banks MD Admit Date/Time: 03/13/2024 7:14 PM LOS: 6 Subjective Interval update: Patient seen and examined at bedside Patient denies sob, chest pain, palpitations, nausea, vomiting,any urinary or bowel habits changes Had BM on 03/16 Hospital course: Erlin Solano is 78 y.o male with PMH of recurrent DVT on eliquis,chronic leukopenia( diagnosed in 2022), HTN, GERD, CAD present the the [facility] on 03/13 as direct admission from Oncology for further workup abnormal bone marrow biopsy concern for AML. Oncology consulted. Patient underwent bone marrow biopsy on 03/15 showed acute myeloid leukemia, waiting for oncology to initiate therapy Objective Recent Vitals: Temp: [98.3 ??F (36.8 ??C)-98.9 ??F (37.2 ??C)] 98.3 ??F (36.8 ??C) Pulse: [61-75] 66 Resp: [18] 18 BP: (110-138)/(55-79) 128/79 Weight change: Intake/Output Summary (Last 24 hours) at 03/19/2024 1643 Last data filed at 03/19/2024 1632 Gross per 24 hour Intake 2104 ml Output 2400 ml Net -296 ml Physical Exam: Gen: Alert, cooperative, in no acute distress HEENT: NC/AT, EOMI, no nasal drainage, oropharynx clear Neck: Supple with full ROM CV: Regular S1 & S2, without murmur, rub or gallop. Lungs: Clear to auscultation bilaterally, no crackles, no wheezes Abdomen: BS+, soft, non-tender, non-distended. No rebound/guarding Extremities: Nontender with normal ROM, No edema noted Skin: Warm, dry, no rashes or wounds, Noted, the procedure looks has a dressing on, intact and clean Neuro: Alert and oriented to person, place, time and situation. No gross focal neurologic deficits noted Psych: Mood and affect appropriate and within normal limits Scheduled Medications: 0.9% NaCl 3 mL Intracatheter q8h apixaban 2.5 mg Oral BID decitabine (Dacogen) 45 mg in 0.9% NaCl IV 119 mL infusion 20 mg/m2 (Treatment Plan Recorded) Intravenous Once dilTIAZem coated beads 24hr 120 mg Oral QDAY levoFLOXacin 500 mg Oral q24h pantoprazole EC 40 mg Oral QDAY polyethylene glycol 3350 17 g Oral QDAY posaconazole 300 mg Oral QDAY WITH DINNER senna 17.2 mg Oral QDAY valACYclovir 500 mg Oral BID venetoclax 100 mg Oral QDAY WITH FOOD PRN Medications: SALINE LOCK, INSERT AND MAINTAIN AND 0.9% NaCl AND 0.9% NaCl ondansetron (disintegrating) ondansetron prochlorperazine prochlorperazine Continuous Infusions: Laboratory Data Recent Labs Component Name 03/19/2462203/18/24 0833 03/17/24 0528 WBC 0.8* 0.9* 0.8* HGB 11.7* 12.7* 11.1* HCT 34.6* 38.9 33.6* PLTCOUNT 87* 89* 83* MCV 85.4 87.2 86.4 Recent Labs Component Name 03/19/2462203/18/24 0833 03/17/24 0528 PT 17.7* 15.8* 15.6* INR 1.5 1.3 1.3 PTT 35.8 31.1 31.0 Recent Labs Component Name 03/19/2462203/18/24 0833 03/17/24 0528 NA 141 143 140 POTASSIUM 3.9 4.2 4.1 CL 110* 110* 109* CO2 25 23 23 BUN 12 13 17 CREATININE 1.25* 1.30* 1.33* Recent Labs Component Name 03/19/2462203/18/24 0833 03/17/24 0528 CALCIUM 9.2 9.5 8.8 PHOS 3.1 2.9 2.6* Recent Labs Component Name 03/19/2462203/18/24 0833 03/17/24 0528 PROT 6.2 6.7 6.0 ALB 3.2* 3.5 3.2* ALKPHOS 104 118 112 AST 12 12 14 ALT 16 17 17 TBILI 0.8 0.8 0.5 No results for input(s): CKTOTAL , CKMBCK2 , TROPONINI in the last 41408 hours. No results for input(s): VANCORNDM , VANCTROUGH in the last 96195 hours. Microbiology Results (Displays last 21 days for this encounter ONLY) Procedure Component Value - Date/Time CYTOMEGALOVIRUS (CMV) QUANTITATIVE PLASMA [[id number]] (Normal) Collected: 03/13/242325 Lab Status: Final result Specimen: Blood Updated: 03/14/24 0900 CMV Quant by PCR, Interp Not detected Narrative: The Cytomegalovirus (CMV) DNA analysis utilized a plasma sample, real-time PCR (qPCR), and is reported as Not Detected, Detected (<35 IU/mL), 35 - 10,000,000 IU/mL, or >10,000,000 IU/mL The analytic sensitivity (LOD) of the assay is 35 IU/mL. Linear range of the assay is 35 - 10,000,000 IU/ml. The detection/quantitation of CMV DNA in plasma [...] FDA approved test methodology Bruce sharon CMV. QUINN-RICHMOND VIRUS QUANT BLOOD STL [[id number]] Collected: 03/13/242325 Lab Status: Final result Specimen: Blood Updated: 03/14/24 0856 EBV Quant by PCR, Interp Not detected Specimen Type Plasma Narrative: The Quinn-[place] viral (EBV) DNA analysis utilized a plasma sample, real-time PCR (qPCR), and is reported as Not Detected, Detected (<35 IU/mL), Quantity (IU/mL) or >100,000,000 IU/mL. The analytic sensitivity (LOD) of the assay is 35 IU/mL. The linear range is from 35 IU/mL to 100,000,000 IU/mL. Values less than 35 IU/mL are reported as Detected (<35 IU/mL). Values greater [id number],000,000 IU/mL are reported as >100,000,000 IU/mL. The [...] FDA approved test methodology Bruce sharon EBV. Imaging No results found. Relevant labs and imaging data reviewed on [facility]. 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 daily, Valtrex 500 mg b.i.d., posaconazole 300 mg daily for OI ppx - if concern for TLS ( uric acid > 7-8)may need IV fluids, MR need IV rasburicase. - if was concern for infections obtained for ID workup blood culture, UA chest x-ray low concern for now - unless prophylactics low concern at this time okay to hold off allopurinol - daily labs for TLS ( uric acid LDH), and DIC (PT PTT fibrinogen) - transfusion parameters - keep hemoglobin above 7 on a use leuko reduced and irradiated blood products - Platelets transfusion to keep platelets above 10 K, if but if bleeding keep platelets more than 20 K with minor bleeds and 50 K for the major bleeds if possible. Platelets above 50 K is adequate ofmost invasive procedure, platelets above 100 K is adequate for neurosurgical procedure -Do not use FFP and cryo if was not bleeding. If bleeding keep INR less than 1.8 with the FFP and fibrinogen more than 100 with Cryo ( < 150 if signs of bleeding), 1 unit to cryoprecipitate increased fibrinogen by approximately 7 # HTN (POA) stable # History of dysrhythmia- not present on admission- stable #CAD- stable - completed/ supportive work up- -Echo- from 01/27-ef- 77%, hypertensive LVH, mild Left atrial enlargement, mild MR/ AR/ TR, diastolic dysfunction Ecg- previously showed PVC, RBBB, SVT on seeing cords EP but unclear current completed workup -Stress test- 08/30- abnormal myocardial perfusion for mild to core inferior and apical septal ischemia, left ventricular function within normal limits with ejection fractions 61% -Patient denies chest pain, or sob, palpitations - echo( 03/15/24)- ef- 73%, G2DD, mild TVR, mildly elevated PASP -Plan: -Continue Cardizem 120 mg p.o. daily - Continue telemetry # History of recurrent VTE- (POA) stable Completed/ supportive work up - diagnosed 2004 with provoked DVT PE for when hiatal hernia repair C s/p Braxton filter placement, complete 6 months of Coumadin - recurrence 2005 with right lower extremity DVT, restarted Coumadin -LLE DVT found in 2011 while on Coumadin after holding for small bowel obstructions management, bridge with Lovenox at the time with right lower extremity pain found to have recurrent right LE DVT soswitch to Eliquis Patient has been taken Eliquis 5 mg b.i.d. - Plan: -resume eliquis 2.5 mg bid po daily on 03/16 ( dose decreased from 5 to 2.5 mg, since patient is onposaconazole) # CKD stage 3 b (POA)- stable -Last creat from 03/04-1.10 -Today elevated 1.34 -Plan: - Avoid nephrotoxins medication # COPD- not present on admission ( stable) -Plan: -Continue home Symbicort and p.r.n. albuterol # QAMAR -stable -Plan: -Continue CPAP here nightly Incidental findings requiring follow up: none Diet: DIET REGULAR DVT Prophylaxis: SCDs only Code Status: Full Code Dispo: Continue inpatient treatment. Amado Candidate?: No Electronically Signed By: Caity Ortiz APRN-WIRE MILL OPERATOR 03/19/2024 4:43 PM The total time spent was 20 minutes performing chart preparation, review of data and visit with thepatient, [id number]: I addressed a chronic illness with severe exacerbation/progression/side effect and/or an acute illness/injury that poses a threat to life or bodily functions (as documented above), [id number]: I reviewed the results of a unique test, ordered a unique test, or performed an assessment requiring an independent historian (as documented above), and [id number]: I discussed the management of the patient and/or the interpretation of a test with nursing staff, the care coordination team and all relevant consultants. DUST CLEANER AND SALVAGER * Todd Escamilla RN - 03/19/2024 4:37 PM CST Problem: Fall Risk Goal: Fall risk and fall related injury risk are minimized (interventions related to the fall risk can be found in the flowsheet documentation) Outcome: Progressing DUST CLE[employer]ER AND SALVAGER * Sanrdo Smith MD - 03/19/2024 7:07 AM CST Images from the original note were not included. HEMATOLOGY/ONCOLOGY INPATIENT CONSULTATION NOTE Name: Russ Burciaga Age: [age] year old Date of : 1945 Date of Service: 03/13/2024 Requesting Provider / PCP: Timothy Banks MD Primary oncologist: Dr. 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 Labs notable for WBC 1.8, CT A/P negative for hepatosplenomegaly. Imaging suggestive of pulmonary opacities likely infection. Underwent treatment for diverticulitis as well as Neupogen for neutropenia. Discharged with a WBC of 18.8. Bone marrow performed February 12, 2024: at that time, WBC had dropped back down to 1.2: morphology: increased myeloblasts (up to 30% by morphology) with mild trilineagea dyspoiesis involving a hypercellular bone marrow (70-80%), absent iron stores, patchy and mild increase in reticulin fibrosis MF-1 Bone marrow, flow cytometric immunophenotyping showing 35% myeloblasts identified (20% by morphology), diagnostic immunophenotypic evidence of monoclonal B-cells, an aberrant T-cell population, or plasma cell neoplasm. Aspirate with 20% blasts. FISH PML/DANTE negative. BCR/ABL unable to be performed. FISH AML normal. Pending FISH AML+MDS, chromosome analysis and peripheral myeloid malignancies mutation panel. Since having the leukopenia, patient denies any symptoms of chest pain, dyspnea on exertion, nausea, vomiting, fevers, cough. Overall he says he feels well. No complaints this AM. He is afebrile, HDS. Electrolytes, creatinine, LFT's WNL. CBC showing WBC 1.2, Hgb 11.6 and plts 103. ANC 100. TLS and DIC labs with low concern for either TLS or DIC. Interval Events No acute events overnight. Patient ready to get started with treatment when possible. No symptomatic presentation at this time. Past Medical & Surgical History Patient Active Problem List Diagnosis MDS (myelodysplastic syndrome) (HCC) No past medical history on file. Past Surgical History: Procedure Laterality Date BONE MARROW BIOPSY (STL) 03/15/2024 Past Oncology History Cancer Staging No matching staging information was found for the patient. Oncology History MDS (myelodysplastic syndrome) (HCC) 03/13/2024 Initial Diagnosis MDS (myelodysplastic syndrome) (HCC) 03/16/2024 - Chemotherapy Start Date: 03/16/2024 (Planned) End Date: 08/09/2024 (Planned) Treatment Plan: AML (AZACITIDINE VENETOCLAX) Q28 DAYS INTRAVENOUS Chemotherapy: venetoclax (Venclexta), 0 of 1 cycle, Start date: --, End date: -- azaCITIDine (Vidaza) Infusion, Intravenous, 0 of 6 cycles Discontinue Reason: [Plan is still active] Social History Social History Tobacco Use Smoking status: Never Passive exposure: Never Smokeless tobacco: Never Substance Use Topics Alcohol use: Not on file Family History No family history on file. Review of Systems Review of Systems Constitutional: Negative for chills, fever and weight loss. Respiratory: Negative for shortness of breath. Cardiovascular: Negative for chest pain. Gastrointestinal: Negative for abdominal pain, constipation, diarrhea, nausea and vomiting. Neurological: Negative for dizziness and headaches. Medications SCHEDULED MEDICATIONS: 0.9% NaCl injection 3 mL, Intracatheter, q8h apixaban (Eliquis) tablet 2.5 mg, Oral, BID budesonide-formoterol (Symbicort) 160-4.5 MCG/ACT inhaler 2 puff, Inhalation, BID dilTIAZem coated beads 24hr (Cardizem CD) capsule 120 mg, Oral, QDAY levoFLOXacin (Levaquin) tablet 500 mg, Oral, q24h pantoprazole EC (Protonix) tablet 40 mg, Oral, QDAY polyethylene glycol 3350 (Miralax) packet 17 g, Oral, QDAY posaconazole (Noxafil) tablet 300 mg, Oral, QDAY WITH DINNER senna (Senokot) tablet 8.6 mg, Oral, QDAY valACYclovir (Valtrex) tablet 500 mg, Oral, BID CONTINUOUS MEDICATIONS: PRN MEDICATIONS: 0.9% NaCl injection 1-10 mL, Intracatheter, PRN Allergies Allergies Allergen Reactions Contrast-Gadolinium Agents For Mri Urticaria OBJECTIVE Physical Exam Vitals: 03/18/24 1425 03/18/24 1645 03/18/24 2104 03/19/24 0542 BP: 139/72 110/55 138/72 113/62 Pulse: 88 69 70 61 Resp: 18 18 18 18 Temp: 98.4 ??F (36.9 ??C) 98.9 ??F (37.2 ??C) 98.3 ??F (36.8 ??C) 98.3 ??F (36.8 ??C) SpO2: 97% 96% 97% 95% Weight: Height: Wt Readings from Last 3 Encounters: 03/15/24 98.9 kg (218 lb) 03/04/24 100.2 kg (221 lb) PHYSICAL EXAM Physical Exam Constitutional: Appearance: Normal appearance. HENT: Head: Normocephalic and atraumatic. Mouth/Throat: Mouth: Mucous membranes are moist. Eyes: Extraocular Movements: Extraocular movements intact. Conjunctiva/sclera: Conjunctivae normal. Cardiovascular: Rate and Rhythm: Normal rate and regular rhythm. Pulmonary: Effort: No respiratory distress. Abdominal: General: Abdomen is flat. Bowel sounds are normal. Palpations: Abdomen is soft. Neurological: General: No focal deficit present. Mental Status: He is alert and oriented to person, place, and time. Laboratory Results Recent Labs Component Name 03/18/24 0833 03/17/24 0528 03/16/24 0004 WBC 0.9* 0.8* 0.8* RBC 4.46 3.89* 4.00* HGB 12.7* 11.1* 11.3* HCT 38.9 33.6* 34.7* MCV 87.2 86.4 86.8 MCHC 32.6 33.0 32.6 PLTCOUNT 89* 83* 86* NEUTABS 0.16* 0.22* 0.14* 0.16* 0.08* 0.09* LYMPHABS 0.64* 0.56* 0.63* Recent Labs Component Name 03/18/24 0833 03/17/24 0528 03/16/24 0004 POTASSIUM 4.2 4.1 4.2 CO2 23 23 22 BUN 13 17 15 CREATININE 1.30* 1.33* 1.31* EGFR 56* 54* 55* GLUCOSE 115* 114* 113* CALCIUM 9.5 8.8 8.9 MAGNESIUM 2.0 2.0 2.1 PHOS 2.9 2.6* 3.5 ALT 17 17 16 AST 12 14 15 ALKPHOS 118 112 107 Pathology Results Personally reviewed and summarized above in Hematology & Oncology History Radiology Results Personally reviewed and summarized above in Hematology & Oncology History ASSESSMENT Russ Burciaga is a 78 year old male with: Concern for acute leukemia vs MDS: Chronic Leukopenia: Recent flow suggestive of acute leukemia but not a member service representative sample due to low cellularity FISH PML/DANTE negative BCR/ABL unable to be performed FISH AML normal Pending FISH AML+MDS, chromosome analysis Myeloid malignancies mutation panel Seems to be slowly proliferating disease which may explain the lack of symptoms or concerns typically seen in acute leukemias, behaves like myelodysplastic disease despite the presence of >20% blasts could becoming acute leukemia from MDS; concern for TLS and DIC is low at this time 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 Bone marrow biopsy 03/15: Bone marrow, aspirate, clot section, and core biopsy: - Acute myeloid leukemia Immunohistochemistry performed show ~30% of marrow cellularity to represent blasts by CD34 and CD117. P53 is not expressed on blasts. Myeloid Maturation: left-shifted with increased blasts and dysmyelopoiesis. Erythroid Maturation: normal. Megakaryocyte morphology: dysplastic. History of DVT/PE, on Eliquis: 2005: DVT/PE following hiatal hernia repair s/p Braxton filter placement; warfarin x6 mos 2006: RLE DVT after warfarin discontinuation-->warfarin restarted 2012: LLE DVT occurred after re-initiation of warfarin after holding for a SBO (believed to be 2/2 viral gastroenteritis); treated with NG tube placement and NPO received lovenox in the hospital-->1-2 days after resuming warfarin, noticed RLE pain-->recurrent RLE clot-->switched to Eliquis BID RECOMMENDATIONS - Will start HMA 7+3 with vanetoclex and azacitidine on 03/19/2024 - May need IVFs if able to tolerate, especially if concern for TLS which is low at this time - Please obtain a full ID workup (BCx, UA, CXR) if there is concern for infection; right now concern is low - If uric acid > 7-8 and concern for TLS, may need to give IV rasburicase. Would contact Heme Fellow if concerned. Currently TLS labs are reassuring that concern for TLS is low. -OI ppx: fungal/bacteria/viral/PJP: Levofloxacin 500 mg daily. Posaconazole 300 mg daily. Valtrex 500 mg BID. --Recommend Trend CBC with differential, LFT, BMP; DIC labs (PT/D- dimer/Fibrinogen), TLS labs (Uricacid, LDH) daily --IVF: as needed if concerned for decreased PO intake but from TLS standpoint is okay to hold off for now --TLS ppx: low concern at this time, okay to hold off on allopurinol --GI ppx: protonix --DVT ppx: none --Labs and frequency: TLS/DIC daily for now --Access: PIV --Dispo: inpatient --Transfusion parameters: --PRBC to keep Hgb >7 or if symptomatic from anemia. Only use Leukoreduced and irradiated blood products. --PLT transfusion to keep PLT >10 K; but if bleeding, keep PLT >20K for minor bleeds and >50K for major bleeds, if possible. PLT >50K is adequate for most invasive procedures. PLT~100K isadequate for neurosurgical interventions. --Does not need FFP/cryo if not bleeding. If bleeding, keep INR <1.8 with FFP and fibrinogen >100 with cryo (<150 if signs of bleeding). 1 unit of cryoprecipitate increases fibrinogen by approx 7. Thank you for the opportunity to participate in the care of this patient. Hem/Onc consult service will continue to follow. Please don't hesitate to contact hem/onc consult fellow via the catalyst recovery operator or AMION if any questions or clarifications. Don Smith MD Internal Medicine Resident [facility] DUST CLEANER AND SALVAGER Associated attestation - Fab Lopez MD - 03/19/2024 7:14 PM CHAR DUST CLE[employer]ER AND SALVAGER ATTENDING ATTESTATION Date of service: 03/19/2024 I personally interviewed and examined Russ Burciaga on rounds with the resident on 03/19/2024. I agree with the findings and plan of care as documented by the resident. In addition, I note: BM Bx resulted and diagnostic of AML with myelodysplasia. Treatment plan will be azacitidine plus venetoclax.Chemotherapy will start today. Continue supportive care for pancytopenia. Fab Lopez MD, PhD Hematology/Oncology * Caity Ortiz V., DRUM ATTENDANT-WIRE MILL OPERATOR - 03/18/2024 4:30 PM CST Images from the original note were not included. [facility] Internal Medicine Progress Note Name: Russ Burciaga Room/Bed: [facility]/ : 1945 78 year old PCP: Timothy Banks MD Admit Date/Time: 03/13/2024 7:14 PM LOS: 5 Subjective Interval update: Patient seen and examined at bedside Patient denies sob, chest pain, nausea, vomiting,any urinary or bowel habits changes Had BM on 03/16 - Waiting for results of BMB for definitive diagnosis for induction of therapy Hospital course: Erlin Solano is 78 y.o male with PMH of recurrent DVT on eliquis,chronic leukopenia( diagnosed in 2022), HTN, GERD, CAD present the the [facility] on 03/13 as direct admission from Oncology for further workup abnormal bone marrow biopsy concern for AML. Oncology consulted. Patient underwent bone marrow biopsy on 03/15 Objective Recent Vitals: Temp: [98.1 ??F (36.7 ??C)-98.7 ??F (37.1 ??C)] 98.4 ??F (36.9 ??C) Pulse: [65-88] 88 Resp: [18] 18 BP: (106-144)/(66-77) 139/72 Weight change: Intake/Output Summary (Last 24 hours) at 03/18/2024 1630 Last data filed at 03/18/2024 1430 Gross per 24 hour Intake 480 ml Output 1400 ml Net -920 ml Physical Exam: Gen: Alert, cooperative, in no acute distress HEENT: NC/AT, EOMI, no nasal drainage, oropharynx clear Neck: Supple with full ROM CV: Regular S1 & S2, without murmur, rub or gallop. Lungs: Clear to auscultation bilaterally, no crackles, no wheezes Abdomen: BS+, soft, non-tender, non-distended. No rebound/guarding Extremities: Nontender with normal ROM, No edema noted Skin: Warm, dry, no rashes or wounds, Noted, the procedure looks has a dressing on, intact and clean Neuro: Alert and oriented to person, place, time and situation. No gross focal neurologic deficits noted Psych: Mood and affect appropriate and within normal limits Scheduled Medications: 0.9% NaCl 3 mL Intracatheter q8h apixaban 2.5 mg Oral BID budesonide-formoterol 2 puff Inhalation BID dilTIAZem coated beads 24hr 120 mg Oral QDAY levoFLOXacin 500 mg Oral q24h pantoprazole EC 40 mg Oral QDAY polyethylene glycol 3350 17 g Oral QDAY posaconazole 300 mg Oral QDAY WITH DINNER senna 8.6 mg Oral QDAY valACYclovir 500 mg Oral BID PRN Medications: SALINE LOCK, INSERT AND MAINTAIN AND 0.9% NaCl AND 0.9% NaCl Continuous Infusions: Laboratory Data Recent Labs Component Name 03/18/24 0833 03/17/24 0528 03/16/24 0004 WBC 0.9* 0.8* 0.8* HGB 12.7* 11.1* 11.3* HCT 38.9 33.6* 34.7* PLTCOUNT 89* 83* 86* MCV 87.2 86.4 86.8 Recent Labs Component Name 03/18/24 0833 03/17/24 0528 03/16/24 0004 PT 15.8* 15.6* 15.3* INR 1.3 1.3 1.2 PTT 31.1 31.0 29.1 Recent Labs Component Name 03/18/24 0833 03/17/2428 03/16/24 0004 NA 143 140 141 POTASSIUM 4.2 4.1 4.2 CL 110* 109* 111* CO2 23 23 22 BUN 13 17 15 CREATININE 1.30* 1.33* 1.31* Recent Labs Component Name 03/18/24 0833 03/17/2428 03/16/24 0004 CALCIUM 9.5 8.8 8.9 PHOS 2.9 2.6* 3.5 Recent Labs Component Name 03/18/24 0833 03/17/2452703/16/24 0004 PROT 6.7 6.0 6.3 ALB 3.5 3.2* 3.4 ALKPHOS 118 112 107 AST 12 14 15 ALT 17 17 16 TBILI 0.8 0.5 0.5 No results for input(s): CKTOTAL , CKMBCK2 , TROPONINI in the last 02119 hours. No results for input(s): [facility] in the last 41844 hours. Microbiology Results (Displays last 21 days for this encounter ONLY) Procedure Component Value - Date/Time CYTOMEGALOVIRUS (CMV) QUANTITATIVE PLASMA [[id number]] (Normal) Collected: 03/13/24 2326 Lab Status: Final result Specimen: Blood Updated: 03/14/24 0900 CMV Quant by PCR, Interp Not detected Narrative: The Cytomegalovirus (CMV) DNA analysis utilized a plasma sample, real-time PCR (qPCR), and is reported as Not Detected, Detected (<35 IU/mL), 35 - 10,000,000 IU/mL, or >10,000,000 IU/mL The analytic sensitivity (LOD) of the assay is 35 IU/mL. Linear range of the assay is 35 - 10,000,000 IU/ml. The detection/quantitation of CMV DNA in plasma [...] FDA approved test methodology Bruce sharon CMV. QUINN-RICHMOND VIRUS QUANT BLOOD STL [[id number]] Collected: 03/13/242325 Lab Status: Final result Specimen: Blood Updated: 03/14/24 0856 EBV Quant by PCR, Interp Not detected Specimen Type Plasma Narrative: The Quinn-[place] viral (EBV) DNA analysis utilized a plasma sample, real-time PCR (qPCR), and is reported as Not Detected, Detected (<35 IU/mL), Quantity (IU/mL) or >100,000,000 IU/mL. The analytic sensitivity (LOD) of the assay is 35 IU/mL. The linear range is from 35 IU/mL to 100,000,000 IU/mL. Values less than 35 IU/mL are reported as Detected (<35 IU/mL). Values greater huwp751,000,000 IU/mL are reported as >100,000,000 IU/mL. The [...] FDA approved test methodology Bruce sharon EBV. Imaging No results found. Relevant labs and imaging data reviewed on Epic. Assessment and Plan MDS (myelodysplastic syndrome) (HCC) (POA: Unknown) # Concern for AML versus MDS (POA) -Completed/ supportive work up - increased blasts on bone marrow biopsy - FISH PML/ DANTE negative - BCR/ ABL unable to be performed FISH AML normal -Had a repeat BMB on 03/15 - Oncology following, appr help - Plan: - continue with levofloxacin 500 mg p.o. daily, Valtrex 500 mg b.i.d., posaconazole 300 mg daily for OI ppx -obtain KAZ to assess for ejection fraction cardiac function - if concern for TLS ( uric acid > 7-8)may need IV fluids, MR need IV rasburicase. - if was concern for infections obtained for ID workup blood culture, UA chest x-ray low concern for now - unless prophylactics low concern at this time okay to hold off allopurinol - daily labs for TLS ( uric acid LDH), and DIC (PT PTT fibrinogen) - transfusion parameters - keep hemoglobin above 7 on a use leuko reduced and irradiated blood products - Platelets transfusion to keep platelets above 10 K, if but if bleeding keep platelets more than 20 K with minor bleeds and 50 K for the major bleeds if possible. Platelets above 50 K is adequate ofmost invasive procedure, platelets above 100 K is adequate for neurosurgical procedure -Do not use FFP and cryo if was not bleeding. If bleeding keep INR less than 1.8 with the FFP and fibrinogen more than 100 with Cryo ( < 150 if signs of bleeding), 1 unit to cryoprecipitate increased fibrinogen by approximately 7 # HTN (POA) stable # History of dysrhythmia- not present on admission- stable #CAD- stable - completed/ supportive work up- -Echo- from 01/27-ef- 77%, hypertensive LVH, mild Left atrial enlargement, mild MR/ AR/ TR, diastolic dysfunction Ecg- previously showed PVC, RBBB, SVT on seeing cords EP but unclear current completed workup -Stress test- 08/30- abnormal myocardial perfusion for mild to core inferior and apical septal ischemia, left ventricular function within normal limits with ejection fractions 61% -Patient denies chest pain, or sob, palpitations - echo( 03/15/24)- ef- 73%, G2DD, mild TVR, mildly elevated PASP -Plan: -Continue Cardizem 120 mg p.o. daily - Continue telemetry # History of recurrent VTE- (POA) stable Completed/ supportive work up - diagnosed 2004 with provoked DVT PE for when hiatal hernia repair C s/p Clarkrange filter placement, complete 6 months of Coumadin - recurrence 2005 with right lower extremity DVT, restarted Coumadin -LLE DVT found in 2011 while on Coumadin after holding for small bowel obstructions management, bridge with Lovenox at the time with right lower extremity pain found to have recurrent right LE DVT soswitch to Eliquis Patient has been taken Eliquis 5 mg b.i.d. - Plan: - Restart eliquis 2.5 mg bid po daily on 03/16 ( dose decreased from 5 to 2.5 mg, since patient is on posaconazole) # CKD stage 3 b (POA)- stable -Last creat from 03/04-1.10 -Today elevated 1.34 -Plan: - Avoid nephrotoxins medication # COPD- not present on admission ( stable) -Plan: -Continue home Symbicort and p.r.n. albuterol # QAMAR -stable -Plan: -Continue CPAP here nightly Incidental findings requiring follow up: none Diet: DIET REGULAR DVT Prophylaxis: SCDs only Code Status: Full Code Dispo: Continue inpatient treatment. [place] Candidate?: No Electronically Signed By: Caity Ortiz APRN-FAISAL 03/18/2024 4:30 PM The total time spent was 20 minutes performing chart preparation, review of data and visit with thepatient, [id number]: I addressed a chronic illness with severe exacerbation/progression/side effect and/or an acute illness/injury that poses a threat to life or bodily functions (as documented above), [id number]: I reviewed the results of a unique test, ordered a unique test, or performed an assessment requiring an independent historian (as documented above), and [id number]: I discussed the management of the patient and/or the interpretation of a test with nursing staff, the care coordination team and all relevant consultants. [employer] * Xiomy Sam RN - 03/18/2024 2:25 PM CST Care Coordination Progress Note Expected Discharge Date: 03/22/2024: Discharge Plan: Per review of chart, awaiting biopsy results to determine MDS vs AML and thus determine treatment plan. Discharge needs dependent on the recommendations of the interdisciplinary team. Family Support (Name and Phone): Extended Emergency Contact Information Primary Emergency Contact: rajwinder burciaga Address: [address] [place] Relation: Significant other Transportation at Discharge: Family: READMISSION RISK SCORE is 8 at 2:25 PM 03/18/2024.: Name: Xiomy Sam RN [id number] [employer] * Nicola Villegas - 03/18/2024 1:59 PM CST Combine Operator initiated visit. Combine Operator provided pastoral care through regular conversation, conversation about ariane, and prayer. Patient anticipating diagnosis soon. Patient is hopeful and has strong ariane to support him. Combine Operator remains available for pastoral care as needs arise. Nicola Villegas Staff Combine Operator Pastoral Care, [facility] [phone] (office) [phone] (ascom) [employer]ER * Andreina Arenas RN - 03/18/2024 12:58 PM CST Problem: Fall Risk Goal: Fall risk and fall related injury risk are minimized (interventions related to the fall risk can be found in the flowsheet documentation) Outcome: Progressing Note: Patient education provided to call for assistance with ambulation and transfers. Call light in reach. Problem: Pain/Discomfort Goal: Patient exhibits reduced pain/discomfort as evidenced by pain scores Outcome: Progressing Note: Patient able to rate pain on a 0-10 scale and ask for PRN medications Goal: Patient uses pharmacological and non-pharmacological pain management strategies. Outcome: Progressing Goal: Patient verbalizes acceptable level of pain relief and ability to engage in desired activity. Outcome: Progressing Problem: Infection Goal: Signs and symptoms of infections are decreased or avoided Outcome: Progressing Problem: Respiratory - Adult Goal: Achieves optimal ventilation and oxygenation Description: INTERVENTIONS: Outcome: Progressing Problem: Cardiovascular - Adult Goal: Maintains optimal cardiac output and hemodynamic stability Description: INTERVENTIONS: Outcome: Progressing Goal: Absence of cardiac dysrhythmias or at baseline Description: INTERVENTIONS: Outcome: Progressing Problem: Infection - Adult Goal: Infections are decreased or avoided Description: INTERVENTIONS: Outcome: Progressing Problem: Metabolic/Fluid and Electrolytes - Adult Goal: Electrolytes maintained within normal limits Description: INTERVENTIONS: Outcome: Progressing Goal: Hemodynamic stability and optimal renal function maintained Description: INTERVENTIONS: Outcome: Progressing Problem: Hematologic - Adult Goal: Maintains hematologic stability Description: INTERVENTIONS: Outcome: Progressing Problem: Musculoskeletal - Adult Goal: Return mobility to safest level of function Description: INTERVENTIONS: Outcome: Progressing Goal: Return ADL status to a safe level of function Description: INTERVENTIONS: Outcome: Progressing Problem: Skin/Tissue Integrity - Adult Goal: Skin integrity remains intact Description: INTERVENTIONS: Outcome: Progressing Goal: Incisions, wounds, or drain sites healing without S/S of infection Description: INFECTIONS: Outcome: Progressing Goal: Oral mucous membranes remain intact Description: INTERVENTIONS: Outcome: Progressing D[employer] CLE[employer] * Sandro Smith MD - 03/18/2024 7:29 AM CST Images from the original note were not included. HEMATOLOGY/ONCOLOGY INPATIENT CONSULTATION NOTE Name: Russ Burciaga Age: [age] year old Date of : 1945 Date of Service: 03/13/2024 Requesting Provider / PCP: Timothy Banks MD Primary oncologist: Dr. 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 Labs notable for WBC 1.8, CT A/P negative for hepatosplenomegaly. Imaging suggestive of pulmonary opacities likely infection. Underwent treatment for diverticulitis as well as Neupogen for neutropenia. Discharged with a WBC of 18.8. Bone marrow performed February 12, 2024: at that time, WBC had dropped back down to 1.2: morphology: increased myeloblasts (up to 30% by morphology) with mild trilineagea dyspoiesis involving a hypercellular bone marrow (70-80%), absent iron stores, patchy and mild increase in reticulin fibrosis MF-1 Bone marrow, flow cytometric immunophenotyping showing 35% myeloblasts identified (20% by morphology), diagnostic immunophenotypic evidence of monoclonal B-cells, an aberrant T-cell population, or plasma cell neoplasm. Aspirate with 20% blasts. FISH PML/DANTE negative. BCR/ABL unable to be performed. FISH AML normal. Pending FISH AML+MDS, chromosome analysis and peripheral myeloid malignancies mutation panel. Since having the leukopenia, patient denies any symptoms of chest pain, dyspnea on exertion, nausea, vomiting, fevers, cough. Overall he says he feels well. No complaints this AM. He is afebrile, HDS. Electrolytes, creatinine, LFT's WNL. CBC showing WBC 1.2, Hgb 11.6 and plts 103. ANC 100. TLS and DIC labs with low concern for either TLS or DIC. Interval Events No acute events overnight. Patient ready to get started with treatment when possible. No symptomatic presentation at this time. Past Medical & Surgical History Patient Active Problem List Diagnosis MDS (myelodysplastic syndrome) (HCC) No past medical history on file. Past Surgical History: Procedure Laterality Date BONE MARROW BIOPSY (STL) 03/15/2024 Past Oncology History Cancer Staging No matching staging information was found for the patient. Oncology History MDS (myelodysplastic syndrome) (HCC) 03/13/2024 Initial Diagnosis MDS (myelodysplastic syndrome) (HCC) 03/16/2024 - Chemotherapy Start Date: 03/16/2024 (Planned) End Date: 08/09/2024 (Planned) Treatment Plan: AML (AZACITIDINE VENETOCLAX) Q28 DAYS INTRAVENOUS Chemotherapy: venetoclax (Venclexta), 0 of 1 cycle, Start date: --, End date: -- azaCITIDine (Vidaza) Infusion, Intravenous, 0 of 6 cycles Discontinue Reason: [Plan is still active] Social History Social History Tobacco Use Smoking status: Never Passive exposure: Never Smokeless tobacco: Never Substance Use Topics Alcohol use: Not on file Family History No family history on file. Review of Systems Review of Systems Constitutional: Negative for chills, fever and weight loss. Respiratory: Negative for shortness of breath. Cardiovascular: Negative for chest pain. Gastrointestinal: Negative for abdominal pain, constipation, diarrhea, nausea and vomiting. Neurological: Negative for dizziness and headaches. Medications SCHEDULED MEDICATIONS: 0.9% NaCl injection 3 mL, Intracatheter, q8h apixaban (Eliquis) tablet 2.5 mg, Oral, BID budesonide-formoterol (Symbicort) 160-4.5 MCG/ACT inhaler 2 puff, Inhalation, BID dilTIAZem coated beads 24hr (Cardizem CD) capsule 120 mg, Oral, QDAY levoFLOXacin (Levaquin) tablet 500 mg, Oral, q24h pantoprazole EC (Protonix) tablet 40 mg, Oral, QDAY polyethylene glycol 3350 (Miralax) packet 17 g, Oral, QDAY posaconazole (Noxafil) tablet 300 mg, Oral, QDAY WITH DINNER senna (Senokot) tablet 8.6 mg, Oral, QDAY valACYclovir (Valtrex) tablet 500 mg, Oral, BID CONTINUOUS MEDICATIONS: PRN MEDICATIONS: 0.9% NaCl injection 1-10 mL, Intracatheter, PRN Allergies Allergies Allergen Reactions Contrast-Gadolinium Agents For Mri Urticaria OBJECTIVE Physical Exam Vitals: 03/17/24 1151 03/17/24 1636 03/17/24 2006 03/18/24 0536 BP: 135/71 144/77 137/77 106/66 Pulse: 71 65 67 75 Resp: 18 18 18 18 Temp: 97.8 ??F (36.6 ??C) 98.4 ??F (36.9 ??C) 98.7 ??F (37.1 ??C) 98.1 ??F (36.7 ??C) SpO2: 94% 98% 97% 94% Weight: Height: Wt Readings from Last 3 Encounters: 03/15/24 98.9 kg (218 lb) 03/04/24 100.2 kg (221 lb) PHYSICAL EXAM Physical Exam Constitutional: Appearance: Normal appearance. HENT: Head: Normocephalic and atraumatic. Mouth/Throat: Mouth: Mucous membranes are moist. Eyes: Extraocular Movements: Extraocular movements intact. Conjunctiva/sclera: Conjunctivae normal. Cardiovascular: Rate and Rhythm: Normal rate and regular rhythm. Pulmonary: Effort: No respiratory distress. Abdominal: General: Abdomen is flat. Bowel sounds are normal. Palpations: Abdomen is soft. Neurological: General: No focal deficit present. Mental Status: He is alert and oriented to person, place, and time. Laboratory Results Recent Labs Component Name 03/17/24 0528 03/16/24 0004 03/15/24 0753 WBC 0.8* 0.8* 0.9* RBC 3.89* 4.00* 4.12* HGB 11.1* 11.3* 11.7* HCT 33.6* 34.7* 35.9* MCV 86.4 86.8 87.1 MCHC 33.0 32.6 32.6 PLTCOUNT 83* 86* 95* NEUTABS 0.14* 0.16* 0.08* 0.09* 0.10* 0.07* LYMPHABS 0.56* 0.63* 0.73* Recent Labs Component Name 03/17/24 0528 03/16/24 0004 03/15/24 0753 POTASSIUM 4.1 4.2 4.3 CO2 23 22 25 BUN 17 15 12 CREATININE 1.33* 1.31* 1.34* EGFR 54* 55* 54* GLUCOSE 114* 113* 104* CALCIUM 8.8 8.9 9.3 MAGNESIUM 2.0 2.1 2.1 PHOS 2.6* 3.5 2.9 ALT 17 16 12 AST 14 15 15 ALKPHOS 112 107 115 Pathology Results Personally reviewed and summarized above in Hematology & Oncology History Radiology Results Personally reviewed and summarized above in Hematology & Oncology History ASSESSMENT Russ Burciaga is a 78 year old male with: Concern for acute leukemia vs MDS: Chronic Leukopenia: Recent flow suggestive of acute leukemia but not a member service representative sample due to low cellularity FISH PML/DANTE negative BCR/ABL unable to be performed FISH AML normal Pending FISH AML+MDS, chromosome analysis Myeloid malignancies mutation panel Seems to be slowly proliferating disease which may explain the lack of symptoms or concerns typically seen in acute leukemias, behaves like myelodysplastic disease despite the presence of >20% blasts could becoming acute leukemia from MDS; concern for TLS and DIC is low at this time 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 History of DVT/PE, on Eliquis: 2005: DVT/PE following hiatal hernia repair s/p Clarkrange filter placement; warfarin x6 mos 2006: RLE DVT after warfarin discontinuation-->warfarin restarted 2011: LLE DVT occurred after re-initiation of warfarin after holding for a SBO (believed to be 2/2 viral gastroenteritis); treated with NG tube placement and NPO received lovenox in the hospital-->1-2 days after resuming warfarin, noticed RLE pain-->recurrent RLE clot-->switched to Eliquis BIG RECOMMENDATIONS Repeat bone marrow biopsy at 0800 on 03/15; will start chemo pending some of the results that are made available later in the day - Follow up on: Labs from bone marrow sent: myeloid malignancy mutation panel, FISH MDS, FISH AML, flow cytometry, PML/DANTE, chromosome analysis -F/u peripheral FISH AML+MDS, chromosome analysis, myeloid malignancies mutation panel Will not initiate chemotherapy until after initial results of BMBx, has venetoclax at bedside but is NOT to take it until further evaluation of BMBx results - Obtain a TTE to assess for EF and cardiac function - Obtain baseline EKG - May need IVFs if able to tolerate, especially if concern for TLS - Please obtain a full ID workup (BCx, UA, CXR) if there is concern for infection; right now concern is low - If uric acid > 7-8 and concern for TLS, may need to give IV rasburicase. Would contact Heme Fellow if concerned. Currently TLS labs are reassuring that concern for TLS is low. -OI ppx: fungal/bacteria/viral/PJP: Levofloxacin 500 mg daily. Posaconazole 300 mg daily. Valtrex 500 mg BID. --Recommend Trend CBC with differential, LFT, BMP; DIC labs (PT/D- dimer/Fibrinogen), TLS labs (Uricacid, LDH) daily --IVF: as needed if concerned for decreased PO intake but from TLS standpoint is okay to hold off for now --TLS ppx: low concern at this time, okay to hold off on allopurinol --GI ppx: protonix --DVT ppx: none --Labs and frequency: TLS/DIC daily for now --Access: PIV --Dispo: inpatient --Transfusion parameters: --PRBC to keep Hgb >7 or if symptomatic from anemia. Only use Leukoreduced and irradiated blood products. --PLT transfusion to keep PLT >10 K; but if bleeding, keep PLT >20K for minor bleeds and >50K for major bleeds, if possible. PLT >50K is adequate for most invasive procedures. PLT~100K isadequate for neurosurgical interventions. --Does not need FFP/cryo if not bleeding. If bleeding, keep INR <1.8 with FFP and fibrinogen >100 with cryo (<150 if signs of bleeding). 1 unit of cryoprecipitate increases fibrinogen by approx 7. Thank you for the opportunity to participate in the care of this patient. Hem/Onc consult service will continue to follow. Please don't hesitate to contact hem/onc consult fellow via the catalyst recovery operator or AMION if any questions or clarifications. Don Smith MD Internal Medicine Resident [facility] [employer]ER Associated attestation - Fab Lopez MD - 03/18/2024 10:41 PM CHAR [employer] ATTENDING ATTESTATION Date of service: 03/18/2024 I personally interviewed and examined Russ Burciaga on rounds with the resident on 03/18/2024. I agree with the findings and plan of care as documented by the resident. In addition, I note: BM Bx doneon Monday. Path pending at time of rounds. DDx includes AML versus high grade MDS. Treatment plan will be determined after results of BMBx known. Continue supportive care for pancytopenia. Fab Lopez MD, PhD Hematology/Oncology * Julián Llamas, - 03/17/2024 12:37 PM CST Images from the original note were not included. HEMATOLOGY/ONCOLOGY INPATIENT CONSULTATION NOTE Name: Russ Burciaga Age: [age] year old Date of : 1945 Date of Service: 03/13/2024 Requesting Provider / PCP: Timothy Banks MD Primary oncologist: Dr. 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 Labs notable for WBC 1.8, CT A/P negative for hepatosplenomegaly. Imaging suggestive of pulmonary opacities likely infection. Underwent treatment for diverticulitis as well as Neupogen for neutropenia. Discharged with a WBC of 18.8. Bone marrow performed February 12, 2024: at that time, WBC had dropped back down to 1.2: morphology: increased myeloblasts (up to 30% by morphology) with mild trilineagea dyspoiesis involving a hypercellular bone marrow (70-80%), absent iron stores, patchy and mild increase in reticulin fibrosis MF-1 Bone marrow, flow cytometric immunophenotyping showing 35% myeloblasts identified (20% by morphology), diagnostic immunophenotypic evidence of monoclonal B-cells, an aberrant T-cell population, or plasma cell neoplasm. Aspirate with 20% blasts. FISH PML/DANTE negative. BCR/ABL unable to be performed. FISH AML normal. Pending FISH AML+MDS, chromosome analysis and peripheral myeloid malignancies mutation panel. Since having the leukopenia, patient denies any symptoms of chest pain, dyspnea on exertion, nausea, vomiting, fevers, cough. Overall he says he feels well. No complaints this AM. He is afebrile, HDS. Electrolytes, creatinine, LFT's WNL. CBC showing WBC 1.2, Hgb 11.6 and plts 103. ANC 100. TLS and DIC labs with low concern for either TLS or DIC. Interval Events No acute events overnight. Patient ready to get started with treatment when possible. No symptomatic presentation at this time. Past Medical & Surgical History Patient Active Problem List Diagnosis MDS (myelodysplastic syndrome) (HCC) No past medical history on file. Past Surgical History: Procedure Laterality Date BONE MARROW BIOPSY (STL) 03/15/2024 Past Oncology History Cancer Staging No matching staging information was found for the patient. Oncology History MDS (myelodysplastic syndrome) (HCC) 03/13/2024 Initial Diagnosis MDS (myelodysplastic syndrome) (HCC) 03/16/2024 - Chemotherapy Start Date: 03/16/2024 (Planned) End Date: 08/09/2024 (Planned) Treatment Plan: AML (AZACITIDINE VENETOCLAX) Q28 DAYS INTRAVENOUS Chemotherapy: venetoclax (Venclexta), 0 of 1 cycle, Start date: --, End date: -- azaCITIDine (Vidaza) Infusion, Intravenous, 0 of 6 cycles Discontinue Reason: [Plan is still active] Social History Social History Tobacco Use Smoking status: Never Passive exposure: Never Smokeless tobacco: Never Substance Use Topics Alcohol use: Not on file Family History No family history on file. Review of Systems Review of Systems Constitutional: Negative for chills, fever and weight loss. Respiratory: Negative for shortness of breath. Cardiovascular: Negative for chest pain. Gastrointestinal: Negative for abdominal pain, constipation, diarrhea, nausea and vomiting. Neurological: Negative for dizziness and headaches. Medications SCHEDULED MEDICATIONS: 0.9% NaCl injection 3 mL, Intracatheter, q8h apixaban (Eliquis) tablet 2.5 mg, Oral, BID budesonide-formoterol (Symbicort) 160-4.5 MCG/ACT inhaler 2 puff, Inhalation, BID dilTIAZem coated beads 24hr (Cardizem CD) capsule 120 mg, Oral, QDAY levoFLOXacin (Levaquin) tablet 500 mg, Oral, q24h pantoprazole EC (Protonix) tablet 40 mg, Oral, QDAY polyethylene glycol 3350 (Miralax) packet 17 g, Oral, QDAY posaconazole (Noxafil) tablet 300 mg, Oral, QDAY WITH DINNER senna (Senokot) tablet 8.6 mg, Oral, QDAY valACYclovir (Valtrex) tablet 500 mg, Oral, BID CONTINUOUS MEDICATIONS: PRN MEDICATIONS: 0.9% NaCl injection 1-10 mL, Intracatheter, PRN Allergies Allergies Allergen Reactions Contrast-Gadolinium Agents For Mri Urticaria OBJECTIVE Physical Exam Vitals: 03/16/24200203/16/24 2338 03/17/24 0401 03/17/24 1151 BP: 116/55 117/47 110/58 135/71 Pulse: 73 71 77 71 Resp: 18 18 18 18 Temp: 98.6 ??F (37 ??C) 99.4 ??F (37.4 ??C) 98.8 ??F (37.1 ??C) 97.8 ??F (36.6 ??C) SpO2: 93% 93% 94% 94% Weight: Height: Wt Readings from Last 3 Encounters: 03/15/24 98.9 kg (218 lb) 03/04/24 100.2 kg (221 lb) PHYSICAL EXAM Physical Exam Constitutional: Appearance: Normal appearance. HENT: Head: Normocephalic and atraumatic. Mouth/Throat: Mouth: Mucous membranes are moist. Eyes: Extraocular Movements: Extraocular movements intact. Conjunctiva/sclera: Conjunctivae normal. Cardiovascular: Rate and Rhythm: Normal rate and regular rhythm. Pulmonary: Effort: No respiratory distress. Abdominal: General: Abdomen is flat. Bowel sounds are normal. Palpations: Abdomen is soft. Neurological: General: No focal deficit present. Mental Status: He is alert and oriented to person, place, and time. Laboratory Results Recent Labs Component Name 03/17/24 0528 03/16/24 0004 03/15/24 0753 WBC 0.8* 0.8* 0.9* RBC 3.89* 4.00* 4.12* HGB 11.1* 11.3* 11.7* HCT 33.6* 34.7* 35.9* MCV 86.4 86.8 87.1 MCHC 33.0 32.6 32.6 PLTCOUNT 83* 86* 95* NEUTABS 0.14* 0.16* 0.08* 0.09* 0.10* 0.07* LYMPHABS 0.56* 0.63* 0.73* Recent Labs Component Name 03/17/24 0528 03/16/24 0004 03/15/24 0753 POTASSIUM 4.1 4.2 4.3 CO2 23 22 25 BUN 17 15 12 CREATININE 1.33* 1.31* 1.34* EGFR 54* 55* 54* GLUCOSE 114* 113* 104* CALCIUM 8.8 8.9 9.3 MAGNESIUM 2.0 2.1 2.1 PHOS 2.6* 3.5 2.9 ALT 17 16 12 AST 14 15 15 ALKPHOS 112 107 115 Pathology Results Personally reviewed and summarized above in Hematology & Oncology History Radiology Results Personally reviewed and summarized above in Hematology & Oncology History ASSESSMENT Russ Burciaga is a 78 year old male with: Concern for acute leukemia vs MDS: Chronic Leukopenia: Recent flow suggestive of acute leukemia but not a member service representative sample due to low cellularity FISH PML/DANTE negative BCR/ABL unable to be performed FISH AML normal Pending FISH AML+MDS, chromosome analysis Myeloid malignancies mutation panel Seems to be slowly proliferating disease which may explain the lack of symptoms or concerns typically seen in acute leukemias, behaves like myelodysplastic disease despite the presence of >20% blasts could becoming acute leukemia from MDS; concern for TLS and DIC is low at this time History of DVT/PE, on Eliquis: 2005: DVT/PE following hiatal hernia repair s/p Braxton filter placement; warfarin x6 mos 2006: RLE DVT after warfarin discontinuation-->warfarin restarted 2012: LLE DVT occurred after re-initiation of warfarin after holding for a SBO (believed to be 2/2 viral gastroenteritis); treated with NG tube placement and NPO received lovenox in the hospital-->1-2 days after resuming warfarin, noticed RLE pain-->recurrent RLE clot-->switched to Eliquis BIG RECOMMENDATIONS Repeat bone marrow biopsy at 0800 on 03/15; will start chemo pending some of the results that are made available later in the day - Follow up on: Labs from bone marrow sent: myeloid malignancy mutation panel, FISH MDS, FISH AML, flow cytometry, PML/DANTE, chromosome analysis -F/u peripheral FISH AML+MDS, chromosome analysis, myeloid malignancies mutation panel Will not initiate chemotherapy until after initial results of BMBx, has venetoclax at bedside but is NOT to take it until further evaluation of BMBx results - Obtain a TTE to assess for EF and cardiac function - Obtain baseline EKG - May need IVFs if able to tolerate, especially if concern for TLS - Please obtain a full ID workup (BCx, UA, CXR) if there is concern for infection; right now concern is low - If uric acid > 7-8 and concern for TLS, may need to give IV rasburicase. Would contact Heme Fellow if concerned. Currently TLS labs are reassuring that concern for TLS is low. -OI ppx: fungal/bacteria/viral/PJP: Levofloxacin 500 mg daily. Posaconazole 300 mg daily. Valtrex 500 mg BID. --Recommend Trend CBC with differential, LFT, BMP; DIC labs (PT/D- dimer/Fibrinogen), TLS labs (Uricacid, LDH) daily --IVF: as needed if concerned for decreased PO intake but from TLS standpoint is okay to hold off for now --TLS ppx: low concern at this time, okay to hold off on allopurinol --GI ppx: protonix --DVT ppx: none --Labs and frequency: TLS/DIC daily for now --Access: PIV --Dispo: inpatient --Transfusion parameters: --PRBC to keep Hgb >7 or if symptomatic from anemia. Only use Leukoreduced and irradiated blood products. --PLT transfusion to keep PLT >10 K; but if bleeding, keep PLT >20K for minor bleeds and >50K for major bleeds, if possible. PLT >50K is adequate for most invasive procedures. PLT~100K isadequate for neurosurgical interventions. --Does not need FFP/cryo if not bleeding. If bleeding, keep INR <1.8 with FFP and fibrinogen >100 with cryo (<150 if signs of bleeding). 1 unit of cryoprecipitate increases fibrinogen by approx 7. Thank you for the opportunity to participate in the care of this patient. Hem/Onc consult service will continue to follow. Please don't hesitate to contact hem/onc consult fellow via the catalyst recovery operator or [employer] if any questions or clarifications. Julián Llamas DO, PGY-4 Hematology and Oncology Fellow Department of Hematology and Oncology [facility] DUST CLEANER AND SALVAGER Associated attestation - Zeus Xie MD - 03/17/2024 3:43 PM CHAR DUST CLEANER AND SALVAGER I have seen and examined the patient with the fellow. I agree with the findings and plan of care asdocumented by the fellow. Date of fellow's note: 03/17/2024 Date of service: 03/17/2024 Zeus Xie MD * Caity Ortiz V., DRUM ATTENDANT-WIRE MILL OPERATOR - 03/17/2024 11:50 AM CST Images from the original note were not included. [facility] Internal Medicine Progress Note Name: Russ Burciaga Room/Bed: 705/ : 1945 78 year old PCP: Timothy Banks MD Admit Date/Time: 03/13/2024 7:14 PM LOS: 4 Subjective Interval update: Patient seen and examined at bedside Patient denies sob, chest pain, nausea, vomiting,any urinary or bowel habits changes Had BM on 03/16 - Waiting for results of BMB for definitive diagnosis for induction of therapy Hospital course: Erlin Solano is 78 y.o male with PMH of recurrent DVT on eliquis,chronic leukopenia( diagnosed in 2022), HTN, GERD, CAD present the the [facility] on 03/13 as direct admission from Oncology for further workup abnormal bone marrow biopsy concern for AML. Oncology consulted. Patient underwent bone marrow biopsy on 03/15 Objective Recent Vitals: Temp: [98.6 ??F (37 ??C)-99.4 ??F (37.4 ??C)] 98.8 ??F (37.1 ??C) Pulse: [65-77] 77 Resp: [18] 18 BP: (110-117)/(47-58) 110/58 Weight change: Intake/Output Summary (Last 24 hours) at 03/17/2024 1150 Last data filed at 03/17/2024 0900 Gross per 24 hour Intake 820 ml Output 1900 ml Net -1080 ml Physical Exam: Gen: Alert, cooperative, in no acute distress HEENT: NC/AT, EOMI, no nasal drainage, oropharynx clear Neck: Supple with full ROM CV: Regular S1 & S2, without murmur, rub or gallop. Lungs: Clear to auscultation bilaterally, no crackles, no wheezes Abdomen: BS+, soft, non-tender, non-distended. No rebound/guarding Extremities: Nontender with normal ROM, No edema noted Skin: Warm, dry, no rashes or wounds, Noted, the procedure looks has a dressing on, intact and clean Neuro: Alert and oriented to person, place, time and situation. No gross focal neurologic deficits noted Psych: Mood and affect appropriate and within normal limits Scheduled Medications: 0.9% NaCl 3 mL Intracatheter q8h apixaban 2.5 mg Oral BID budesonide-formoterol 2 puff Inhalation BID dilTIAZem coated beads 24hr 120 mg Oral QDAY levoFLOXacin 500 mg Oral q24h pantoprazole EC 40 mg Oral QDAY polyethylene glycol 3350 17 g Oral QDAY posaconazole 300 mg Oral QDAY WITH DINNER senna 8.6 mg Oral QDAY valACYclovir 500 mg Oral BID PRN Medications: SALINE LOCK, INSERT AND MAINTAIN AND 0.9% NaCl AND 0.9% NaCl Continuous Infusions: Laboratory Data Recent Labs Component Name 03/17/2428 03/16/24 0004 03/15/24 0753 WBC 0.8* 0.8* 0.9* HGB 11.1* 11.3* 11.7* HCT 33.6* 34.7* 35.9* PLTCOUNT 83* 86* 95* MCV 86.4 86.8 87.1 Recent Labs Component Name 03/17/2428 03/16/24 303/15/24752 PT 15.6* 15.3* 16.1* INR 1.3 1.2 1.3 PTT 31.0 29.1 31.4 Recent Labs Component Name 03/17/2452703/16/24303/15/24752 NA 140 141 145 POTASSIUM 4.1 4.2 4.3 CL 109* 111* 107 CO2 23 22 25 BUN 17 15 12 CREATININE 1.33* 1.31* 1.34* Recent Labs Component Name 03/17/2428 03/16/24303/15/24752 CALCIUM 8.8 8.9 9.3 PHOS 2.6* 3.5 2.9 Recent Labs Component Name 03/17/2452703/16/24303/15/24752 PROT 6.0 6.3 6.4 ALB 3.2* 3.4 3.5 ALKPHOS 112 107 115 AST 14 15 15 ALT 17 16 12 TBILI 0.5 0.5 0.8 No results for input(s): CKTOTAL , CKMBCK2 , TROPONINI in the last 73780 hours. No results for input(s): VANCORNDM , VANCTROUGH in the last 08534 hours. Microbiology Results (Displays last 21 days for this encounter ONLY) Procedure Component Value - Date/Time CYTOMEGALOVIRUS (CMV) QUANTITATIVE PLASMA [[id number]] (Normal) Collected: 03/13/24 2326 Lab Status: Final result Specimen: Blood Updated: 03/14/24 0900 CMV Quant by PCR, Interp Not detected Narrative: The Cytomegalovirus (CMV) DNA analysis utilized a plasma sample, real-time PCR (qPCR), and is reported as Not Detected, Detected (<35 IU/mL), 35 - 10,000,000 IU/mL, or >10,000,000 IU/mL The analytic sensitivity (LOD) of the assay is 35 IU/mL. Linear range of the assay is 35 - 10,000,000 IU/ml. The detection/quantitation of CMV DNA in plasma [...] FDA approved test methodology Bruce sharon CMV. QUINN-RICHMOND VIRUS QUANT BLOOD STL [[id number]] Collected: 03/13/242325 Lab Status: Final result Specimen: Blood Updated: 03/14/24 0856 EBV Quant by PCR, Interp Not detected Specimen Type Plasma Narrative: The Quinn-[place] viral (EBV) DNA analysis utilized a plasma sample, real-time PCR (qPCR), and is reported as Not Detected, Detected (<35 IU/mL), Quantity (IU/mL) or >100,000,000 IU/mL. The analytic sensitivity (LOD) of the assay is 35 IU/mL. The linear range is from 35 IU/mL to 100,000,000 IU/mL. Values less than 35 IU/mL are reported as Detected (<35 IU/mL). Values greater pmdv263,000,000 IU/mL are reported as >100,000,000 IU/mL. The [...] FDA approved test methodology Bruce sharon EBV. Imaging No results found. Relevant labs and imaging data reviewed on [facility]. Assessment and Plan MDS (myelodysplastic syndrome) (HCC) (POA: Unknown) # Concern for AML versus MDS (POA) -Completed/ supportive work up - increased blasts on bone marrow biopsy - FISH PML/ DANTE negative - BCR/ ABL unable to be performed FISH AML normal -Had a repeat BMB on 03/15 - Oncology following, appr help - Plan: - continue with levofloxacin 500 mg p.o. daily, Valtrex 500 mg b.i.d., posaconazole 300 mg daily for OI ppx -obtain KAZ to assess for ejection fraction cardiac function - if concern for TLS ( uric acid > 7-8)may need IV fluids, MR need IV rasburicase. - if was concern for infections obtained for ID workup blood culture, UA chest x-ray low concern for now - unless prophylactics low concern at this time okay to hold off allopurinol - daily labs for TLS ( uric acid LDH), and DIC (PT PTT fibrinogen) - transfusion parameters - keep hemoglobin above 7 on a use leuko reduced and irradiated blood products - Platelets transfusion to keep platelets above 10 K, if but if bleeding keep platelets more than 20 K with minor bleeds and 50 K for the major bleeds if possible. Platelets above 50 K is adequate ofmost invasive procedure, platelets above 100 K is adequate for neurosurgical procedure -Do not use FFP and cryo if was not bleeding. If bleeding keep INR less than 1.8 with the FFP and fibrinogen more than 100 with Cryo ( < 150 if signs of bleeding), 1 unit to cryoprecipitate increased fibrinogen by approximately 7 # HTN (POA) stable # History of dysrhythmia- not present on admission- stable #CAD- stable - completed/ supportive work up- Echo- from 01/27-ef- 77%, hypertensive LVH, mild Left atrial enlargement, mild MR/ AR/ TR, diastolic dysfunction Ecg- previously showed PVC, RBBB, SVT on seeing cords EP but unclear current completed workup Stress test- 08/30- abnormal myocardial perfusion for mild to core inferior and apical septal ischemia, left ventricular function within normal limits with ejection fractions 61% Patient denies chest pain, or sob, palpitations - echo( 03/15/24)- ef- 73%, G2DD, mild TVR, mildly elevated PASP -Plan: -Continue Cardizem 120 mg p.o. daily - Continue telemetry # History of recurrent VTE- (POA) stable Completed/ supportive work up - diagnosed 2004 with provoked DVT PE for when hiatal hernia repair C s/p Clarkrange filter placement, complete 6 months of Coumadin - recurrence 2005 with right lower extremity DVT, restarted Coumadin -LLE DVT found in 2011 while on Coumadin after holding for small bowel obstructions management, bridge with Lovenox at the time with right lower extremity pain found to have recurrent right LE DVT soswitch to Eliquis Patient has been taken Eliquis 5 mg b.i.d. - Plan: - Restart eliquis 2.5 mg bid po daily on 03/16 ( dose decreased from 5 to 2.5 mg, since patient is on posaconazole) # CKD stage 3 b (POA)- stable -Last creat from 03/04-1.10 -Today elevated 1.34 -Plan: - Avoid nephrotoxins medication # COPD- not present on admission ( stable) -Plan: -Continue home Symbicort and p.r.n. albuterol # QAMAR -stable -Plan: -Continue CPAP here nightly Incidental findings requiring follow up: none Diet: DIET REGULAR DVT Prophylaxis: SCDs only Code Status: Full Code Dispo: Continue inpatient treatment. [place] Candidate?: No Electronically Signed By: Caity Ortiz APRN-WIRE MILL OPERATOR 03/17/2024 11:50 AM The total time spent was 20 minutes performing chart preparation, review of data and visit with thepatient, [id number]: I addressed a chronic illness with severe exacerbation/progression/side effect and/or an acute illness/injury that poses a threat to life or bodily functions (as documented above), [id number]/[id number]: I reviewed the results of a unique test, ordered a unique test, or performed an assessment requiring an independent historian (as documented above), and [id number]: I discussed the management of the patient and/or the interpretation of a test with nursing staff, the care coordination team and all relevant consultants. DUST CLEANER AND SALVAGER * Rachele Winn RN - 03/17/2024 9:14 AM CST Problem: Fall Risk Goal: Fall risk and fall related injury risk are minimized (interventions related to the fall risk can be found in the flowsheet documentation) Outcome: Progressing Problem: Pain/Discomfort Goal: Patient exhibits reduced pain/discomfort as evidenced by pain scores Outcome: Progressing Goal: Patient uses pharmacological and non-pharmacological pain management strategies. Outcome: Progressing Goal: Patient verbalizes acceptable level of pain relief and ability to engage in desired activity. Outcome: Progressing Problem: Infection Goal: Signs and symptoms of infections are decreased or avoided Outcome: Progressing Problem: Respiratory - Adult Goal: Achieves optimal ventilation and oxygenation Description: INTERVENTIONS: Outcome: Progressing Problem: Cardiovascular - Adult Goal: Maintains optimal cardiac output and hemodynamic stability Description: INTERVENTIONS: Outcome: Progressing Goal: Absence of cardiac dysrhythmias or at baseline Description: INTERVENTIONS: Outcome: Progressing Problem: Infection - Adult Goal: Infections are decreased or avoided Description: INTERVENTIONS: Outcome: Progressing Problem: Metabolic/Fluid and Electrolytes - Adult Goal: Electrolytes maintained within normal limits Description: INTERVENTIONS: Outcome: Progressing Goal: Hemodynamic stability and optimal renal function maintained Description: INTERVENTIONS: Outcome: Progressing Problem: Hematologic - Adult Goal: Maintains hematologic stability Description: INTERVENTIONS: Outcome: Progressing Problem: Musculoskeletal - Adult Goal: Return mobility to safest level of function Description: INTERVENTIONS: Outcome: Progressing Goal: Return ADL status to a safe level of function Description: INTERVENTIONS: Outcome: Progressing Problem: Skin/Tissue Integrity - Adult Goal: Skin integrity remains intact Description: INTERVENTIONS: Outcome: Progressing Goal: Incisions, wounds, or drain sites healing without S/S of infection Description: INFECTIONS: Outcome: Progressing Goal: Oral mucous membranes remain intact Description: INTERVENTIONS: Outcome: Progressing DUST CLEANER AND SALVAGER * Julián Llamas DO - 03/16/2024 1:34 PM CST Images from the original note were not included. HEMATOLOGY/ONCOLOGY INPATIENT CONSULTATION NOTE Name: Russ Burciaga Age: [age] year old Date of : 1945 Date of Service: 03/13/2024 Requesting Provider / PCP: Timothy Banks MD Primary oncologist: Dr. 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 Labs notable for WBC 1.8, CT A/P negative for hepatosplenomegaly. Imaging suggestive of pulmonary opacities likely infection. Underwent treatment for diverticulitis as well as Neupogen for neutropenia. Discharged with a WBC of 18.8. Bone marrow performed February 12, 2024: at that time, WBC had dropped back down to 1.2: morphology: increased myeloblasts (up to 30% by morphology) with mild trilineagea dyspoiesis involving a hypercellular bone marrow (70-80%), absent iron stores, patchy and mild increase in reticulin fibrosis MF-1 Bone marrow, flow cytometric immunophenotyping showing 35% myeloblasts identified (20% by morphology), diagnostic immunophenotypic evidence of monoclonal B-cells, an aberrant T-cell population, or plasma cell neoplasm. Aspirate with 20% blasts. FISH PML/DANTE negative. BCR/ABL unable to be performed. FISH AML normal. Pending FISH AML+MDS, chromosome analysis and peripheral myeloid malignancies mutation panel. Since having the leukopenia, patient denies any symptoms of chest pain, dyspnea on exertion, nausea, vomiting, fevers, cough. Overall he says he feels well. No complaints this AM. He is afebrile, HDS. Electrolytes, creatinine, LFT's WNL. CBC showing WBC 1.2, Hgb 11.6 and plts 103. ANC 100. TLS and DIC labs with low concern for either TLS or DIC. Interval Events No acute events overnight. Flow cytometry consistent with AML BUT sample had low count and it is possible the sample was not acorrect representation of the underlying process so will await biopsy result to make decision. Past Medical & Surgical History Patient Active Problem List Diagnosis MDS (myelodysplastic syndrome) (HCC) No past medical history on file. Past Surgical History: Procedure Laterality Date BONE MARROW BIOPSY (STL) 03/15/2024 Past Oncology History Cancer Staging No matching staging information was found for the patient. Oncology History MDS (myelodysplastic syndrome) (HCC) 03/13/2024 Initial Diagnosis MDS (myelodysplastic syndrome) (HCC) 03/16/2024 - Chemotherapy Start Date: 03/16/2024 (Planned) End Date: 08/09/2024 (Planned) Treatment Plan: AML (AZACITIDINE VENETOCLAX) Q28 DAYS INTRAVENOUS Chemotherapy: venetoclax (Venclexta), 0 of 1 cycle, Start date: --, End date: -- azaCITIDine (Vidaza) Infusion, Intravenous, 0 of 6 cycles Discontinue Reason: [Plan is still active] Social History Social History Tobacco Use Smoking status: Never Passive exposure: Never Smokeless tobacco: Never Substance Use Topics Alcohol use: Not on file Family History No family history on file. Review of Systems Review of Systems Constitutional: Negative for chills, fever and weight loss. Respiratory: Negative for shortness of breath. Cardiovascular: Negative for chest pain. Gastrointestinal: Negative for abdominal pain, constipation, diarrhea, nausea and vomiting. Neurological: Negative for dizziness and headaches. Medications SCHEDULED MEDICATIONS: 0.9% NaCl injection 3 mL, Intracatheter, q8h apixaban (Eliquis) tablet 2.5 mg, Oral, BID budesonide-formoterol (Symbicort) 160-4.5 MCG/ACT inhaler 2 puff, Inhalation, BID dilTIAZem coated beads 24hr (Cardizem CD) capsule 120 mg, Oral, QDAY levoFLOXacin (Levaquin) tablet 500 mg, Oral, q24h pantoprazole EC (Protonix) tablet 40 mg, Oral, QDAY polyethylene glycol 3350 (Miralax) packet 17 g, Oral, QDAY posaconazole (Noxafil) tablet 300 mg, Oral, QDAY WITH DINNER senna (Senokot) tablet 8.6 mg, Oral, QDAY valACYclovir (Valtrex) tablet 500 mg, Oral, BID [] perflutren lipid microsphere (Definity) injection 0.5 mL, Intravenous, intra-Procedure multiple CONTINUOUS MEDICATIONS: PRN MEDICATIONS: 0.9% NaCl injection 1-10 mL, Intracatheter, PRN Allergies Allergies Allergen Reactions Contrast-Gadolinium Agents For Mri Urticaria OBJECTIVE Physical Exam Vitals: 03/15/24 2001 03/15/24 2340 03/16/24 0420 03/16/24 1032 BP: 151/67 118/57 121/61 120/79 Pulse: 73 66 68 78 Resp: 18 18 18 18 Temp: 98.2 ??F (36.8 ??C) 97.9 ??F (36.6 ??C) 98.4 ??F (36.9 ??C) 98.2 ??F (36.8 ??C) SpO2: 95% 95% 94% 95% Weight: Height: Wt Readings from Last 3 Encounters: 03/15/24 98.9 kg (218 lb) 03/04/24 100.2 kg (221 lb) PHYSICAL EXAM Physical Exam Constitutional: Appearance: Normal appearance. HENT: Head: Normocephalic and atraumatic. Mouth/Throat: Mouth: Mucous membranes are moist. Eyes: Extraocular Movements: Extraocular movements intact. Conjunctiva/sclera: Conjunctivae normal. Cardiovascular: Rate and Rhythm: Normal rate and regular rhythm. Pulmonary: Effort: No respiratory distress. Abdominal: General: Abdomen is flat. Bowel sounds are normal. Palpations: Abdomen is soft. Neurological: General: No focal deficit present. Mental Status: He is alert and oriented to person, place, and time. Laboratory Results Recent Labs Component Name 03/16/24 0004 03/15/24 0753 03/13/24 2326 WBC 0.8* 0.9* 1.2* RBC 4.00* 4.12* 4.14* HGB 11.3* 11.7* 11.6* HCT 34.7* 35.9* 35.8* MCV 86.8 87.1 86.5 MCHC 32.6 32.6 32.4 PLTCOUNT 86* 95* 103* NEUTABS 0.08* 0.09* 0.10* 0.07* 0.11* 0.07* LYMPHABS 0.63* 0.73* 1.04 Recent Labs Component Name 03/16/24 0004 03/15/24 0753 03/13/24 2326 POTASSIUM 4.2 4.3 4.0 CO2 22 25 24 BUN 15 12 16 CREATININE 1.31* 1.34* 1.12 EGFR 55* 54* 67* GLUCOSE 113* 104* 110* CALCIUM 8.9 9.3 9.3 MAGNESIUM 2.1 2.1 2.2 PHOS 3.5 2.9 3.5 ALT 16 12 16 AST 15 15 19 ALKPHOS 107 115 109 Pathology Results Personally reviewed and summarized above in Hematology & Oncology History Radiology Results Personally reviewed and summarized above in Hematology & Oncology History ASSESSMENT Russ Burciaga is a 78 year old male with: Concern for acute leukemia vs MDS: Chronic Leukopenia: Recent flow suggestive of acute leukemia but not a member service representative sample due to low cellularity FISH PML/DANTE negative BCR/ABL unable to be performed FISH AML normal Pending FISH AML+MDS, chromosome analysis Myeloid malignancies mutation panel Seems to be slowly proliferating disease which may explain the lack of symptoms or concerns typically seen in acute leukemias, behaves like myelodysplastic disease despite the presence of >20% blasts could becoming acute leukemia from MDS; concern for TLS and DIC is low at this time History of DVT/PE, on Eliquis: 2005: DVT/PE following hiatal hernia repair s/p Braxton filter placement; warfarin x6 mos 2005: RLE DVT after warfarin discontinuation-->warfarin restarted 2011: LLE DVT occurred after re-initiation of warfarin after holding for a SBO (believed to be 2/2 viral gastroenteritis); treated with NG tube placement and NPO received lovenox in the hospital-->1-2 days after resuming warfarin, noticed RLE pain-->recurrent RLE clot-->switched to Eliquis BIG RECOMMENDATIONS Repeat bone marrow biopsy at 0800 on 03/15; will start chemo pending some of the results that are made available later in the day - Follow up on: Labs from bone marrow sent: myeloid malignancy mutation panel, FISH MDS, FISH AML, flow cytometry, PML/DANTE, chromosome analysis -F/u peripheral FISH AML+MDS, chromosome analysis, myeloid malignancies mutation panel Will not initiate chemotherapy until after initial results of BMBx, has venetoclax at bedside but is NOT to take it until further evaluation of BMBx results - Obtain a TTE to assess for EF and cardiac function - Obtain baseline EKG - May need IVFs if able to tolerate, especially if concern for TLS - Please obtain a full ID workup (BCx, UA, CXR) if there is concern for infection; right now concern is low - If uric acid > 7-8 and concern for TLS, may need to give IV rasburicase. Would contact Heme Fellow if concerned. Currently TLS labs are reassuring that concern for TLS is low. -OI ppx: fungal/bacteria/viral/PJP: Levofloxacin 500 mg daily. Posaconazole 300 mg daily. Valtrex 500 mg BID. --Recommend Trend CBC with differential, LFT, BMP; DIC labs (PT/D- dimer/Fibrinogen), TLS labs (Uricacid, LDH) daily --IVF: as needed if concerned for decreased PO intake but from TLS standpoint is okay to hold off for now --TLS ppx: low concern at this time, okay to hold off on allopurinol --GI ppx: protonix --DVT ppx: none --Labs and frequency: TLS/DIC daily for now --Access: PIV --Dispo: inpatient --Transfusion parameters: --PRBC to keep Hgb >7 or if symptomatic from anemia. Only use Leukoreduced and irradiated blood products. --PLT transfusion to keep PLT >10 K; but if bleeding, keep PLT >20K for minor bleeds and >50K for major bleeds, if possible. PLT >50K is adequate for most invasive procedures. PLT~100K isadequate for neurosurgical interventions. --Does not need FFP/cryo if not bleeding. If bleeding, keep INR <1.8 with FFP and fibrinogen >100 with cryo (<150 if signs of bleeding). 1 unit of cryoprecipitate increases fibrinogen by approx 7. Thank you for the opportunity to participate in the care of this patient. Hem/Onc consult service will continue to follow. Please don't hesitate to contact hem/onc consult fellow via the catalyst recovery operator or AMION if any questions or clarifications. Julián Llamas DO, PGY-4 Hematology and Oncology Fellow Department of Hematology and Oncology [facility] DUST CLEANER AND SALVAGER Associated attestation - Zeus Xie MD - 03/16/2024 3:35 PM CHAR DUST CLEANER AND SALVAGER I have seen and examined the patient with the fellow. I agree with the findings and plan of care asdocumented by the fellow. Date of fellow's note: 03/16/2024 Date of service: 03/16/2024 Zeus Xie MD * Caity Ortiz V., DRUM ATTENDANT-WIRE MILL OPERATOR - 03/16/2024 12:36 PM CST Images from the original note were not included. [facility] Internal Medicine Progress Note Name: Russ Burciaga Room/Bed: 70/ : 1945 78 year old PCP: Timothy Banks MD Admit Date/Time: 03/13/2024 7:14 PM LOS: 3 Subjective Interval update: Patient seen and examined at bedside Patient denies sob, chest pain, nausea, vomiting, abdominal pain, appetite is ok, no issue voiding.BM 4 days ago, some mild pain on the procedure site Hospital course: Erlin Solano is 78 y.o male with PMH of recurrent DVT on eliquis,chronic leukopenia( diagnosed in 2022), HTN, GERD, CAD present the the [facility] on 03/13 as direct admission from Oncology for further workup abnormal bone marrow biopsy concern for AML. Oncology consulted. Patient underwent bone marrow biopsy on 03/15 Objective Recent Vitals: Temp: [97.9 ??F (36.6 ??C)-98.4 ??F (36.9 ??C)] 98.2 ??F (36.8 ??C) Pulse: [66-78] 78 Resp: [18] 18 BP: (112-151)/(56-79) 120/79 Weight change: Intake/Output Summary (Last 24 hours) at 03/16/2024 1236 Last data filed at 03/16/2024 1035 Gross per 24 hour Intake 1342 ml Output 200 ml Net 1142 ml Physical Exam: Gen: Alert, cooperative, in no acute distress HEENT: NC/AT, EOMI, no nasal drainage, oropharynx clear Neck: Supple with full ROM CV: Regular S1 & S2, without murmur, rub or gallop. Lungs: Clear to auscultation bilaterally, no crackles, no wheezes Abdomen: BS+, soft, non-tender, non-distended. No rebound/guarding Extremities: Nontender with normal ROM, No edema noted Skin: Warm, dry, no rashes or wounds noted, the procedure site-the dressing has a old bloody drainage, intact. Neuro: Alert and oriented to person, place, time and situation. No gross focal neurologic deficits noted Psych: Mood and affect appropriate and within normal limits Scheduled Medications: 0.9% NaCl 3 mL Intracatheter q8h apixaban 2.5 mg Oral BID budesonide-formoterol 2 puff Inhalation BID dilTIAZem coated beads 24hr 120 mg Oral QDAY levoFLOXacin 500 mg Oral q24h pantoprazole EC 40 mg Oral QDAY polyethylene glycol 3350 17 g Oral QDAY posaconazole 300 mg Oral QDAY WITH DINNER senna 8.6 mg Oral QDAY valACYclovir 500 mg Oral BID PRN Medications: SALINE LOCK, INSERT AND MAINTAIN AND 0.9% NaCl AND 0.9% NaCl Continuous Infusions: Laboratory Data Recent Labs Component Name 03/16/24 0004 03/15/24 0753 03/13/24 2326 WBC 0.8* 0.9* 1.2* HGB 11.3* 11.7* 11.6* HCT 34.7* 35.9* 35.8* PLTCOUNT 86* 95* 103* MCV 86.8 87.1 86.5 Recent Labs Component Name 03/16/24 0004 03/15/2475203/13/242325 PT 15.3* 16.1* 16.5* INR 1.2 1.3 1.4 PTT 29.1 31.4 31.6 Recent Labs Component Name 03/16/24 0004 03/15/24 0753 03/13/246 NA 141 145 140 POTASSIUM 4.2 4.3 4.0 CL 111* 107 109* CO2 22 25 24 BUN 15 12 16 CREATININE 1.31* 1.34* 1.12 Recent Labs Component Name 03/16/24 0004 03/15/2475203/13/242325 CALCIUM 8.9 9.3 9.3 PHOS 3.5 2.9 3.5 Recent Labs Component Name 03/16/24303/15/2475203/13/242325 PROT 6.3 6.4 6.6 ALB 3.4 3.5 3.7 ALKPHOS 107 115 109 AST 15 15 19 ALT 16 12 16 TBILI 0.5 0.8 0.5 No results for input(s): CKTOTAL , CKMBCK2 , TROPONINI in the last 72058 hours. No results for input(s): [facility] , VANCOUGH in the last 42634 hours. Microbiology Results (Displays last 21 days for this encounter ONLY) Procedure Component Value - Date/Time CYTOMEGALOVIRUS (CMV) QUANTITATIVE PLASMA [[id number]] (Normal) Collected: 03/13/242325 Lab Status: Final result Specimen: Blood Updated: 03/14/24 0900 CMV Quant by PCR, Interp Not detected Narrative: The Cytomegalovirus (CMV) DNA analysis utilized a plasma sample, real-time PCR (qPCR), and is reported as Not Detected, Detected (<35 IU/mL), 35 - 10,000,000 IU/mL, or >10,000,000 IU/mL The analytic sensitivity (LOD) of the assay is 35 IU/mL. Linear range of the assay is 35 - 10,000,000 IU/ml. The detection/quantitation of CMV DNA in plasma [...] FDA approved test methodology Bruce sharon CMV. QUIN[place]-RICH[place] VIRUS QUANT BLOOD STL [[id number]] Collected: 03/13/24 2326 Lab Status: Final result Specimen: Blood Updated: 03/14/24 0856 EBV Quant by PCR, Interp Not detected Specimen Type Plasma Narrative: The [place] viral (EBV) DNA analysis utilized a plasma sample, real-time PCR (qPCR), and is reported as Not Detected, Detected (<35 IU/mL), Quantity (IU/mL) or >100,000,000 IU/mL. The analytic sensitivity (LOD) of the assay is 35 IU/mL. The linear range is from 35 IU/mL to 100,000,000 IU/mL. Values less than 35 IU/mL are reported as Detected (<35 IU/mL). Values greater sesb526,000,000 IU/mL are reported as >100,000,000 IU/mL. The [...] FDA approved test methodology Bruce sharon EBV. Imaging No results found. Relevant labs and imaging data reviewed on [facility]. Assessment and Plan MDS (myelodysplastic syndrome) (HCC) (POA: Unknown) # Concern for AML versus MDS (POA) -Completed/ supportive work up - increased blasts on bone marrow biopsy - FISH PML/ DANTE negative - BCR/ ABL unable to be performed FISH AML normal -Had a repeat BMB on 03/15 - Oncology following, appr help - Plan: - continue with levofloxacin 500 mg p.o. daily, Valtrex 500 mg b.i.d., posaconazole 300 mg daily for OI ppx -obtain KAZ to assess for ejection fraction cardiac function - if concern for TLS ( uric acid > 7-8)may need IV fluids, MR need IV rasburicase. - if was concern for infections obtained for ID workup blood culture, UA chest x-ray low concern for now - unless prophylactics low concern at this time okay to hold off allopurinol - daily labs for TLS ( uric acid LDH), and DIC (PT PTT fibrinogen) - transfusion parameters - keep hemoglobin above 7 on a use leuko reduced and irradiated blood products - Platelets transfusion to keep platelets above 10 K, if but if bleeding keep platelets more than 20 K with minor bleeds and 50 K for the major bleeds if possible. Platelets above 50 K is adequate ofmost invasive procedure, platelets above 100 K is adequate for neurosurgical procedure -Do not use FFP and cryo if was not bleeding. If bleeding keep INR less than 1.8 with the FFP and fibrinogen more than 100 with Cryo ( < 150 if signs of bleeding), 1 unit to cryoprecipitate increased fibrinogen by approximately 7 # HTN (POA) stable # History of dysrhythmia- not present on admission- stable #CAD- stable - completed/ supportive work up- Echo- from 01/27-ef- 77%, hypertensive LVH, mild Left atrial enlargement, mild MR/ AR/ TR, diastolic dysfunction Ecg- previously showed PVC, RBBB, SVT on seeing cords EP but unclear current completed workup Stress test- 08/30- abnormal myocardial perfusion for mild to core inferior and apical septal ischemia, left ventricular function within normal limits with ejection fractions 61% Patient denies chest pain, or sob, palpitations - echo( 03/15/24)- ef- 73%, G2DD, mild TVR, mildly elevated PASP -Plan: -Continue Cardizem 120 mg p.o. daily - Continue telemetry # History of recurrent VTE- (POA) stable Completed/ supportive work up - diagnosed 2004 with provoked DVT PE for when hiatal hernia repair C s/p Braxton filter placement, complete 6 months of Coumadin - recurrence 2005 with right lower extremity DVT, restarted Coumadin -LLE DVT found in 2011 while on Coumadin after holding for small bowel obstructions management, bridge with Lovenox at the time with right lower extremity pain found to have recurrent right LE DVT soswitch to Eliquis Patient has been taken Eliquis 5 mg b.i.d. - Plan: - Restart eliquis 2.5 mg bid po daily ( dose decreased from 5 to 2.5 mg, since patient is on posaconazole) # CKD stage 3 b (POA)- stable -Last creat from 03/04-1.10 -Today elevated 1.34 -Plan: - Avoid nephrotoxins medication # COPD- not present on admission ( stable) -Plan: -Continue home Symbicort and p.r.n. albuterol # QAMAR -stable -Plan: -Continue CPAP here nightly Incidental findings requiring follow up: none Diet: DIET REGULAR DVT Prophylaxis: SCDs only Code Status: Full Code Dispo: Continue inpatient treatment. [place] Candidate?: No Electronically Signed By: Ciaty Ortiz APRN-FAISAL 03/16/2024 12:36 PM The total time spent was 20 minutes performing chart preparation, review of data and visit with thepatient, [id number]: I addressed a chronic illness with severe exacerbation/progression/side effect and/or an acute illness/injury that poses a threat to life or bodily functions (as documented above), [id number]: I reviewed the results of a unique test, ordered a unique test, or performed an assessment requiring an independent historian (as documented above), and [id number]: I discussed the management of the patient and/or the interpretation of a test with nursing staff, the care coordination team and all relevant consultants. DUST CLEANER AND SALVAGER * Rachele Winn RN - 03/16/2024 9:10 AM CST Problem: Fall Risk Goal: Fall risk and fall related injury risk are minimized (interventions related to the fall risk can be found in the flowsheet documentation) Outcome: Progressing Problem: Pain/Discomfort Goal: Patient exhibits reduced pain/discomfort as evidenced by pain scores Outcome: Progressing Goal: Patient uses pharmacological and non-pharmacological pain management strategies. Outcome: Progressing Goal: Patient verbalizes acceptable level of pain relief and ability to engage in desired activity. Outcome: Progressing Problem: Infection Goal: Signs and symptoms of infections are decreased or avoided Outcome: Progressing Problem: Respiratory - Adult Goal: Achieves optimal ventilation and oxygenation Description: INTERVENTIONS: Outcome: Progressing Problem: Cardiovascular - Adult Goal: Maintains optimal cardiac output and hemodynamic stability Description: INTERVENTIONS: Outcome: Progressing Goal: Absence of cardiac dysrhythmias or at baseline Description: INTERVENTIONS: Outcome: Progressing Problem: Infection - Adult Goal: Infections are decreased or avoided Description: INTERVENTIONS: Outcome: Progressing Problem: Metabolic/Fluid and Electrolytes - Adult Goal: Electrolytes maintained within normal limits Description: INTERVENTIONS: Outcome: Progressing Goal: Hemodynamic stability and optimal renal function maintained Description: INTERVENTIONS: Outcome: Progressing Problem: Hematologic - Adult Goal: Maintains hematologic stability Description: INTERVENTIONS: Outcome: Progressing Problem: Musculoskeletal - Adult Goal: Return mobility to safest level of function Description: INTERVENTIONS: Outcome: Progressing Goal: Return ADL status to a safe level of function Description: INTERVENTIONS: Outcome: Progressing DUST CLEANER AND SALVAGER * Rosalina Quiros RN - 03/16/2024 2:55 AM CST Problem: Fall Risk Goal: Fall risk and fall related injury risk are minimized (interventions related to the fall risk can be found in the flowsheet documentation) Outcome: Progressing Problem: Pain/Discomfort Goal: Patient exhibits reduced pain/discomfort as evidenced by pain scores Outcome: Progressing Goal: Patient uses pharmacological and non-pharmacological pain management strategies. Outcome: Progressing Goal: Patient verbalizes acceptable level of pain relief and ability to engage in desired activity. Outcome: Progressing Problem: Infection Goal: Signs and symptoms of infections are decreased or avoided Outcome: Progressing DUST CLEANER AND SALVAGER * Olivia Patel Graduate Nurse - 03/15/2024 3:00 PM CST Problem: Fall Risk Goal: Fall risk and fall related injury risk are minimized (interventions related to the fall risk can be found in the flowsheet documentation) Outcome: Progressing Problem: Pain/Discomfort Goal: Patient exhibits reduced pain/discomfort as evidenced by pain scores Outcome: Progressing Goal: Patient uses pharmacological and non-pharmacological pain management strategies. Outcome: Progressing Goal: Patient verbalizes acceptable level of pain relief and ability to engage in desired activity. Outcome: Progressing Problem: Infection Goal: Signs and symptoms of infections are decreased or avoided Outcome: Progressing DUST CLEANER AND SALVAGER * Caity Ortiz V., DRUM ATTENDANT-WIRE MILL OPERATOR - 03/15/2024 12:08 PM CST Images from the original note were not included. [facility] Internal Medicine Progress Note Name: Russ Burciaga Room/Bed: 705 : 1945 78 year old PCP: Timothy Banks MD Admit Date/Time: 03/13/2024 7:14 PM LOS: 2 Subjective Interval update: Patient seen and examined at bedside after bone marrow biopsy on 03/15/2024 Patient denies sob, chest pain, nausea, vomiting, abdominal pain, appetite is ok, no issue voiding.BM 4 days ago Hospital course: Erlin Solano is 78 y.o male with PMH of recurrent DVT on eliquis,chronic leukopenia( diagnosed in 2022), HTN, GERD, CAD present the the [facility] on 03/13 as direct admission from Oncology for further workup abnormal bone marrow biopsy concern for AML. Oncology consulted. Patient underwent bone marrow biopsy on 03/15 Objective Recent Vitals: Temp: [97.5 ??F (36.4 ??C)-98.5 ??F (36.9 ??C)] 97.5 ??F (36.4 ??C) Pulse: [62-67] 64 Resp: [18-20] 18 BP: (104-128)/(58-73) 128/73 Weight change: Intake/Output Summary (Last 24 hours) at 03/15/2024 1209 Last data filed at 03/14/2024 2102 Gross per 24 hour Intake 950 ml Output -- Net 950 ml Physical Exam: Gen: Alert, cooperative, in no acute distress HEENT: NC/AT, EOMI, no nasal drainage, oropharynx clear Neck: Supple with full ROM CV: Regular S1 & S2, without murmur, rub or gallop. Lungs: Clear to auscultation bilaterally, no crackles, no wheezes Abdomen: BS+, soft, non-tender, non-distended. No rebound/guarding Extremities: Nontender with normal ROM, No edema noted Skin: Warm, dry, no rashes or wounds noted Neuro: Alert and oriented to person, place, time and situation. No gross focal neurologic deficits noted Psych: Mood and affect appropriate and within normal limits Scheduled Medications: 0.9% NaCl 3 mL Intracatheter q8h budesonide-formoterol 2 puff Inhalation BID dilTIAZem coated beads 24hr 120 mg Oral QDAY levoFLOXacin 500 mg Oral q24h pantoprazole EC 40 mg Oral QDAY posaconazole 300 mg Oral QDAY WITH DINNER valACYclovir 500 mg Oral BID PRN Medications: SALINE LOCK, INSERT AND MAINTAIN AND 0.9% NaCl AND 0.9% NaCl Continuous Infusions: Laboratory Data Recent Labs Component Name 03/15/2475203/13/24232503/04/24 1613 WBC 0.9* 1.2* 1.0* HGB 11.7* 11.6* 12.5* HCT 35.9* 35.8* 38.8 PLTCOUNT 95* 103* 110* MCV 87.1 86.5 88.4 Recent Labs Component Name 03/15/2475203/13/242325 PT 16.1* 16.5* INR 1.3 1.4 PTT 31.4 31.6 Recent Labs Component Name 03/15/24 07503/13/24232503/04/24 1613 NA 145 140 141 POTASSIUM 4.3 4.0 4.2 CL 107 109* 110* CO2 BUN 12 16 14 CREATININE 1.34* 1.12 1.10 Recent Labs Component Name 03/15/24 0753 03/13/24232503/04/24 1613 CALCIUM 9.3 9.3 9.6 PHOS 2.9 3.5 - Recent Labs Component Name 03/15/24 0753 03/13/24232503/04/24 1613 PROT 6.4 6.6 7.1 ALB 3.5 3.7 3.8 ALKPHOS 115 109 130 AST 15 19 14 ALT 12 16 17 TBILI 0.8 0.5 0.4 No results for input(s): CKTOTAL , CKMBCK2 , TROPONINI in the last 00915 hours. No results for input(s): VANCORNDM , VANCTROUGH in the last 16879 hours. Microbiology Results (Displays last 21 days for this encounter ONLY) Procedure Component Value - Date/Time CYTOMEGALOVIRUS (CMV) QUANTITATIVE PLASMA [[id number]] (Normal) Collected: 03/13/242325 Lab Status: Final result Specimen: Blood Updated: 03/14/24 0900 CMV Quant by PCR, Interp Not detected Narrative: The Cytomegalovirus (CMV) DNA analysis utilized a plasma sample, real-time PCR (qPCR), and is reported as Not Detected, Detected (<35 IU/mL), 35 - 10,000,000 IU/mL, or >10,000,000 IU/mL The analytic sensitivity (LOD) of the assay is 35 IU/mL. Linear range of the assay is 35 - 10,000,000 IU/ml. The detection/quantitation of CMV DNA in plasma [...] FDA approved test methodology Bruce sharon CMV. QUIN[place] VIRUS QUANT BLOOD STL [[id number]] Collected: 03/13/242325 Lab Status: Final result Specimen: Blood Updated: 03/14/24 0856 EBV Quant by PCR, Interp Not detected Specimen Type Plasma Narrative: The [place] viral (EBV) DNA analysis utilized a plasma sample, real-time PCR (qPCR), and is reported as Not Detected, Detected (<35 IU/mL), Quantity (IU/mL) or >100,000,000 IU/mL. The analytic sensitivity (LOD) of the assay is 35 IU/mL. The linear range is from 35 IU/mL to 100,000,000 IU/mL. Values less than 35 IU/mL are reported as Detected (<35 IU/mL). Values greater whzd081,000,000 IU/mL are reported as >100,000,000 IU/mL. The [...] FDA approved test methodology Bruce sharon EBV. Imaging No results found. Relevant labs and imaging data reviewed on [facility]. Assessment and Plan MDS (myelodysplastic syndrome) (HCC) (POA: Unknown) # Concern for AML versus MDS (POA) -Completed/ supportive work up - increased blasts on bone marrow biopsy - FISH PML/ DANTE negative - BCR/ ABL unable to be performed FISH AML normal Had a repeat BMB on 03/15 - Oncology following, appr help - Plan: - continue with levofloxacin 500 mg p.o. daily, Valtrex 500 mg b.i.d., posaconazole 300 mg daily for OI ppx -obtain KAZ to assess for ejection fraction cardiac function - if concern for TLS ( uric acid > 7-8)may need IV fluids, MR need IV rasburicase. - if was concern for infections obtained for ID workup blood culture, UA chest x-ray low concern for now - unless prophylactics low concern at this time okay to hold off allopurinol - daily labs for TLS ( uric acid LDH), and DIC (PT PTT fibrinogen) - transfusion parameters - keep hemoglobin above 7 on a use leuko reduced and irradiated blood products - Platelets transfusion to keep platelets above 10 K, if but if bleeding keep platelets more than 20 K with minor bleeds and 50 K for the major bleeds if possible. Platelets above 50 K is adequate ofmost invasive procedure, platelets above 100 K is adequate for neurosurgical procedure -Do not use FFP and cryo if was not bleeding. If bleeding keep INR less than 1.8 with the FFP and fibrinogen more than 100 with Cryo ( < 150 if signs of bleeding), 1 unit to cryoprecipitate increased fibrinogen by approximately 7 # HTN (POA) stable # History of dysrhythmia- not present on admission- stable #CAD- stable - completed/ supportive work up- Echo- from 01/27-ef- 77%, hypertensive LVH, mild Left atrial enlargement, mild MR/ AR/ TR, diastolic dysfunction Ecg- previously showed PVC, RBBB, SVT on seeing cords EP but unclear current completed workup Stress test- 08/30- abnormal myocardial perfusion for mild to core inferior and apical septal ischemia, left ventricular function within normal limits with ejection fractions 61% Patient denies chest pain, or sob, palpitations -Plan: Continue Cardizem 120 mg p.o. daily - Continue telemetry - Follow echo results -pending # History of recurrent VTE- (POA) stable Completed/ supportive work up - diagnosed 2004 with provoked DVT PE for when hiatal hernia repair C s/p Clark[place] filter placement, complete 6 months of Coumadin - recurrence 2005 with right lower extremity DVT, restarted Coumadin -LLE DVT found in 2011 while on Coumadin after holding for small bowel obstructions management, bridge with Lovenox at the time with right lower extremity pain found to have recurrent right LE DVT soswitch to Eliquis Patient has been taken Eliquis 5 mg b.i.d. - Plan: - holding Eliquis for now due to the procedure today, might resume tomorrow # CKD stage 3 b (POA)- -Last creat from 03/04-1.10 Today elevated 1.34 Plan: - avoid nephrotoxins medication # COPD- not present on admission ( stable) Plan: Continue home Symbicort and p.r.n. albuterol # QAMAR -stable Plan: Continue CPAP here nightly Incidental findings requiring follow up: none Diet: DIET REGULAR DVT Prophylaxis: SCDs only Code Status: Full Code Dispo: Continue inpatient treatment. Amado Candidate?: No Electronically Signed By: Caity Ortiz APRN-FAISAL 03/15/2024 12:09 PM The total time spent was 50 minutes performing chart preparation, review of data and visit with thepatient, [id number]: I addressed a chronic illness with severe exacerbation/progression/side effect and/or an acute illness/injury that poses a threat to life or bodily functions (as documented above), [id number]: I reviewed the results of a unique test, ordered a unique test, or performed an assessment requiring an independent historian (as documented above), and [id number]: I discussed the management of the patient and/or the interpretation of a test with nursing staff, the care coordination team and all relevant consultants. DUST CLEANER AND SALVAGER * Sandro Smith MD - 03/15/2024 7:06 AM CST Images from the original note were not included. HEMATOLOGY/ONCOLOGY INPATIENT CONSULTATION NOTE Name: Russ Burciaga Age: [age] year old Date of : 1945 Date of Service: 03/13/2024 Requesting Provider / PCP: Timothy Banks MD Primary oncologist: Dr. Garcia Reason for Consult: MDS vs AML HEMATOLOGY & ONCOLOGY HISTORY Principal Diagnosis: MDS vs AML Current Therapy: to start below regimen after follow up on bone marrow biopsy on 03/15: Treatment Plan: AML (AZACITIDINE VENETOCLAX) Q28 DAYS INTRAVENOUS Chemotherapy: venetoclax (Venclexta), 0 of 1 cycle, Start date: --, End date: -- azaCITIDine (Vidaza) Infusion, Intravenous, 0 of 6 cycles Discontinue Reason: [Plan is still active] Prior Hematology/Oncology History: Oncology History MDS (myelodysplastic syndrome) (HCC) 03/13/2024 Initial Diagnosis MDS (myelodysplastic syndrome) (HCC) 03/15/2024 - Chemotherapy Start Date: 03/15/2024 (Planned) End Date: 08/08/2024 (Planned) Treatment Plan: AML (AZACITIDINE VENETOCLAX) Q28 DAYS INTRAVENOUS Chemotherapy: venetoclax (Venclexta), 0 of 1 cycle, Start date: --, End date: -- azaCITIDine (Vidaza) Infusion, Intravenous, 0 of 6 cycles Discontinue Reason: [Plan is still active] SUBJECTIVE History of Present Illness 78 yo M who was diagnosed with 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 Labs notable for WBC 1.8, CT A/P negative for hepatosplenomegaly. Imaging suggestive of pulmonary opacities likely infection. Underwent treatment for diverticulitis as well as Neupogen for neutropenia. Discharged with a WBC of 18.8. Bone marrow performed February 12, 2024: at that time, WBC had dropped back down to 1.2: morphology: increased myeloblasts (up to 30% by morphology) with mild trilineagea dyspoiesis involving a hypercellular bone marrow (70-80%), absent iron stores, patchy and mild increase in reticulin fibrosis MF-1 Bone marrow, flow cytometric immunophenotyping showing 35% myeloblasts identified (20% by morphology), diagnostic immunophenotypic evidence of monoclonal B-cells, an aberrant T-cell population, or plasma cell neoplasm. Aspirate with 20% blasts. FISH PML/DANTE negative. BCR/ABL unable to be performed. FISH AML normal. Pending FISH AML+MDS, chromosome analysis and peripheral myeloid malignancies mutation panel. Since having the leukopenia, patient denies any symptoms of chest pain, dyspnea on exertion, nausea, vomiting, fevers, cough. Overall he says he feels well. No complaints this AM. He is afebrile, HDS. Electrolytes, creatinine, LFT's WNL. CBC showing WBC 1.2, Hgb 11.6 and plts 103. ANC 100. TLS and DIC labs with low concern for either TLS or DIC. Interval Events No acute events overnight. Plan for Bone marrow biopsy this AM. Past Medical & Surgical History Patient Active Problem List Diagnosis MDS (myelodysplastic syndrome) (HCC) No past medical history on file. No past surgical history on file. Past Oncology History Cancer Staging No matching staging information was found for the patient. Oncology History MDS (myelodysplastic syndrome) (HCC) 03/13/2024 Initial Diagnosis MDS (myelodysplastic syndrome) (HCC) 03/15/2024 - Chemotherapy Start Date: 03/15/2024 (Planned) End Date: 08/08/2024 (Planned) Treatment Plan: AML (AZACITIDINE VENETOCLAX) Q28 DAYS INTRAVENOUS Chemotherapy: venetoclax (Venclexta), 0 of 1 cycle, Start date: --, End date: -- azaCITIDine (Vidaza) Infusion, Intravenous, 0 of 6 cycles Discontinue Reason: [Plan is still active] Social History Social History Tobacco Use Smoking status: Never Passive exposure: Never Smokeless tobacco: Never Substance Use Topics Alcohol use: Not on file Family History No family history on file. Medications SCHEDULED MEDICATIONS: 0.9% NaCl injection 3 mL, Intracatheter, q8h budesonide-formoterol (Symbicort) 160-4.5 MCG/ACT inhaler 2 puff, Inhalation, BID dilTIAZem coated beads 24hr (Cardizem CD) capsule 120 mg, Oral, QDAY levoFLOXacin (Levaquin) tablet 500 mg, Oral, q24h pantoprazole EC (Protonix) tablet 40 mg, Oral, QDAY posaconazole (Noxafil) tablet 300 mg, Oral, QDAY WITH DINNER valACYclovir (Valtrex) tablet 500 mg, Oral, BID CONTINUOUS MEDICATIONS: PRN MEDICATIONS: 0.9% NaCl injection 1-10 mL, Intracatheter, PRN Allergies Allergies Allergen Reactions Contrast-Gadolinium Agents For Mri Urticaria OBJECTIVE Physical Exam Vitals: 03/14/24 1941 03/14/24 2352 03/15/24 0415 03/15/24 0532 BP: 122/62 110/58 104/61 104/61 Pulse: 63 67 67 67 Resp: 18 Temp: 98.3 ??F (36.8 ??C) 98.4 ??F (36.9 ??C) 98.2 ??F (36.8 ??C) 98.2 ??F (36.8 ??C) SpO2: 97% 95% 95% 95% Weight: Height: Wt Readings from Last 3 Encounters: 03/13/24 99.2 kg (218 lb 9.6 oz) 03/04/24 100.2 kg (221 lb) PHYSICAL EXAM GENERAL: no acute distress; nontoxic HEENT: Head: normocephalic, atraumatic, without lesions Eyes: EOM intact, no scleral icterus, opens eyes spontaneously Ears: hearing intact Nose: external nose without lesions or asymmetry Mouth/Throat: MMM without lesions CARDIAC: chest wall symmetric and without deformity; no palpable thrill; normal rate and rhythm; normal S1 and S2, normal PMI; no murmurs, gallops, or rubs; no LE edema; 2+ distal pulses bilaterally,symmetric PULMONARY: breathing on room air with symmetric non-labored use of accessory muscles, normal inspiratory and expiratory phase, no wheezes on inspiration or expiration, no crackles ABDOMEN: non distended, normal bowel sounds, no tenderness to palpation in all four quadrants, epigastric region, or supra-pubic region MSK: full range of motion, no obvious asymmetry or atrophy of the muscles INTEGUMENTARY: warm, dry, no clubbing of the finger nails, no diaphoresis, no rash, IV sites clean NEURO: CN II-XII intact; strength 5/5 in proximal and distal upper and lower extremities; awake, alert, and oriented to person, place, time, and situation - AOx 4 ; follows commands; language and comprehension intact PSYCH: normal mood, normal affect, euthymic, no SI/HI Laboratory Results Recent Labs Component Name 03/13/24 2326 03/04/24 1613 WBC 1.2* 1.0* RBC 4.14* 4.39 HGB 11.6* 12.5* HCT 35.8* 38.8 MCV 86.5 88.4 MCHC 32.4 32.2 PLTCOUNT 103* 110* NEUTABS 0.11* 0.07* 0.13* LYMPHABS 1.04 0.74* Recent Labs Component Name 03/13/246 03/04/24 1613 POTASSIUM 4.0 4.2 CO2 24 26 BUN 16 14 CREATININE 1.12 1.10 EGFR 67* 68* GLUCOSE 110* 121* CALCIUM 9.3 9.6 MAGNESIUM 2.2 - PHOS 3.5 - ALT 16 17 AST 19 14 ALKPHOS 109 130 Pathology Results Personally reviewed and summarized above in Hematology & Oncology History Radiology Results Personally reviewed and summarized above in Hematology & Oncology History ASSESSMENT Russ Burciaga is a 78 year old male with: Concern for acute leukemia vs MDS --Bone marrow performed February 12, 2024: at that time, WBC had dropped back down to 1.2: --Morphology: increased myeloblasts (up to 30% by morphology) with mild trilineagea dyspoiesis involving a hypercellular bone marrow (70-80%), absent iron stores, patchy and mild increase in reticulin fibrosis MF-1 --Flow cytometry: Bone marrow, flow cytometric immunophenotyping: --35% myeloblasts identified (20% by morphology), see comment --No diagnostic immunophenotypic evidence of monoclonal B-cells, an aberrant T- cell population, or plasma cell neoplasm FISH PML/DANTE negative BCR/ABL unable to be performed FISH AML normal Pending FISH AML+MDS, chromosome analysis Myeloid malignancies mutation panel --Seems to be slowly proliferating disease which may explain the lack of symptoms or concerns typically seen in acute leukemias, behaves like myelodysplastic disease despite the presence of >20% blasts could becoming acute leukemia from MDS; concern for TLS and DIC is low at this time 2. Chronic leukopenia 3. Severe neutropenia: ANC 100 RECOMMENDATIONS --Repeat bone marrow biopsy at 0800 on 03/15; will start chemo pending some of the results that aremade available later in the day --Labs from bone marrow sent: myeloid malignancy mutation panel, FISH MDS, FISH AML, flow cytometry, PML/DANTE, chromosome analysis --F/u peripheral FISH AML+MDS, chromosome analysis, myeloid malignancies mutation panel --Continue with LVQ, valtrex, and posaconazole with current dosing for OI ppx --Will not initiate chemotherapy until after initial results of BMBx, has venetoclax at bedside butis NOT to take it until further evaluation of BMBx results and assessment by primary oncologist --Obtain a TTE to assess for EF and cardiac function --Obtain baseline EKG --May need IVFs if able to tolerate, especially if concern for TLS --Please obtain a full ID workup (BCx, UA, CXR) if there is concern for infection; right now concern is low --If uric acid > 7-8 and concern for TLS, may need to give IV rasburicase. Would contact Heme Fellow if concerned. Currently TLS labs are reassuring that concern for TLS is low. -OI ppx: fungal/bacteria/viral/PJP: Levofloxacin 500 mg daily. Posaconazole 300 mg daily. Valtrex 500 mg BID. --Recommend Trend CBC with differential, LFT, BMP; DIC labs (PT/D- dimer/Fibrinogen), TLS labs (Uricacid, LDH) daily --IVF: as needed if concerned for decreased PO intake but from TLS standpoint is okay to hold off for now --TLS ppx: low concern at this time, okay to hold off on allopurinol --OI ppx: LVQ, posaconazole, valtrex as above --GI ppx: protonix --DVT ppx: none --Labs and frequency: TLS/DIC daily for now --Access: PIV --Dispo: inpatient --Transfusion parameters: --PRBC to keep Hgb >7 or if symptomatic from anemia. Only use Leukoreduced and irradiated blood products. --PLT transfusion to keep PLT >10 K; but if bleeding, keep PLT >20K for minor bleeds and >50K for major bleeds, if possible. PLT >50K is adequate for most invasive procedures. PLT~100K isadequate for neurosurgical interventions. --Does not need FFP/cryo if not bleeding. If bleeding, keep INR <1.8 with FFP and fibrinogen >100 with cryo (<150 if signs of bleeding). 1 unit of cryoprecipitate increases fibrinogen by approx 7. Thank you for the opportunity to participate in the care of this patient. Hem/Onc consult service will continue to follow. Please don't hesitate to contact hem/onc consult fellow via the catalyst recovery operator or AMION if any questions or clarifications. Don Smith MD Internal Medicine DUST CLE[employer]ER AND SALVAGER Associated attestation - Zeus Xie MD - 03/15/2024 6:03 PM CHAR DUST CLEANER AND SALVAGER I have seen and examined the patient with the resident. I agree with the findings and plan of care as documented by the resident. Date of resident's note: 03/15/2024 Date of service: 03/15/2024 Zeus Xie MD * Jayro Powell, Graduate Nurse - 03/14/2024 9:01 PM CST Problem: Fall Risk Goal: Fall risk and fall related injury risk are minimized (interventions related to the fall risk can be found in the flowsheet documentation) Outcome: Progressing Problem: Pain/Discomfort Goal: Patient exhibits reduced pain/discomfort as evidenced by pain scores Outcome: Progressing Goal: Patient uses pharmacological and non-pharmacological pain management strategies. Outcome: Progressing Goal: Patient verbalizes acceptable level of pain relief and ability to engage in desired activity. Outcome: Progressing Problem: Infection Goal: Signs and symptoms of infections are decreased or avoided Outcome: Progressing DUST CLEANER AND SALVAGER * Olivia Palafox RN - 03/14/2024 6:29 PM CST Problem: Fall Risk Goal: Fall risk and fall related injury risk are minimized (interventions related to the fall risk can be found in the flowsheet documentation) Outcome: Progressing Problem: Pain/Discomfort Goal: Patient exhibits reduced pain/discomfort as evidenced by pain scores Outcome: Progressing Goal: Patient uses pharmacological and non-pharmacological pain management strategies. Outcome: Progressing Goal: Patient verbalizes acceptable level of pain relief and ability to engage in desired activity. Outcome: Progressing Problem: Infection Goal: Signs and symptoms of infections are decreased or avoided Outcome: Progressing DUST CLEANER AND SALVAGER * Teresita Bolden RN - 03/14/2024 11:58 AM CST Care Coordination Initial Assessment Expected Discharge Date: Expected Discharge Disposition: Home or Self Care Transportation at Discharge: Family Prior Level of Care: Home Prior to Admit Provider: Comments: 78 year old male with h/o chronic leukopenia, diverticulitis, hypertension, GERD, coronary artery disease, recurrent DVT on Eliquis, who presents as a direct admission from Oncology for further workup of abnormal bone marrow biopsy and concern for AML. Introduced role of CM. Resides at home with spouse. Retired. Drives. Independent with ADL's, use of a cane while outside of home. [place]. Denies HH services. Utilizes a CPAP. Home address and PCP confirmed. Plan to return home when medically ready, family will transport. CM will continue following for planning of discharge needs. PCP: Timothy Banks MD Payor: [employer] MEDICARE ADV / Plan: [employer] MEDICARE ADV HMO/PPO/PFFS / Product Type: Medicare-Managed Care / Lives with: Spouse/Significant Other Physical Limitations: Hard of Hearing;Ambulation with use of DME (cane) Requires Assistance With: Mobility Preferred Pharmacy: [id number] - [address] [facility] [phone] [address] [facility] [phone] READMISSION RISK SCORE is 8 at 11:59 AM 03/14/2024. Met with patient Family Support (name and phone): Extended Emergency Contact Information Primary Emergency Contact: rajwinder burciaga Address: [address] [place], [place] [id number] [place] [address] of [place] [employer] Relation: Significant other Patient or member service representative requests care coordination reach out to family or caregiver listed above regarding discharge planning and at time of discharge? No Actual Level of Care/Dispostion Details Durable Medical Equipment Planning Equipment at Home: Cane;CPAP/BiPAP Type of Cane: Standard/Quad DME Provider: not identified List DME pt. requires but does not have.: None Shipyard Laborer Referral: No Will continue to follow. For any questions or needs please contact: Grounds Cleaner/Social Work Name/Phone number: Teresita Bolden RN DUST CLE[employer]ER AND SALVAGER * Ghanshyam Dewey PA-C - 03/14/2024 8:59 AM CST Images from the original note were not included. [facility] Internal Medicine Progress Note Name: Russ Burciaga Room/Bed: 705 : 1945 78 year old PCP: Timothy Banks MD Admit Date/Time: 03/13/2024 7:14 PM LOS: 1 Subjective Interval update: Admitted from clinic. Denies abdominal pain, diarrhea, hematochezia, n/v. Denies chest pain, SOB, dyspnea, bleeding and has been in otherwise his normal state of health prior to arrival. Hospital course: Russ Burciaga is a 78 year old male with history of chronic leukopenia, recent diverticulitis, CAD,essential hypertension, GERD and recurrent DVTs (on Eliquis) who presented as a direct admission onbehalf of Oncology service for further workup of prior abnormal 02/12/24 bone marrow biopsy and concern for AML. Objective Recent Vitals: Temp: [98.1 ??F (36.7 ??C)-98.2 ??F (36.8 ??C)] 98.1 ??F (36.7 ??C) Pulse: [58-74] 58 Resp: [16-18] 18 BP: (121-157)/(72-91) 121/72 Weight change: No intake or output data in the 24 hours ending 03/14/24 0900 Physical Exam: Physical Exam Constitutional: Appearance: Normal appearance. He is normal weight. HENT: Head: Normocephalic. Nose: Nose normal. Mouth/Throat: Mouth: Mucous membranes are moist. Pharynx: Oropharynx is clear. Eyes: Extraocular Movements: Extraocular movements intact. Conjunctiva/sclera: Conjunctivae normal. Pupils: Pupils are equal, round, and reactive to light. Cardiovascular: Rate and Rhythm: Normal rate and regular rhythm. Pulses: Normal pulses. Heart sounds: Murmur heard. Pulmonary: Effort: Pulmonary effort is normal. No respiratory distress. Breath sounds: Normal breath sounds. No wheezing. Abdominal: General: Abdomen is flat. Bowel sounds are normal. There is no distension. Palpations: Abdomen is soft. Tenderness: There is no abdominal tenderness. There is no guarding. Musculoskeletal: General: Normal range of motion. Cervical back: Normal range of motion and neck supple. Skin: General: Skin is warm and dry. Capillary Refill: Capillary refill takes less than 2 seconds. Neurological: General: No focal deficit present. Mental Status: He is alert and oriented to person, place, and time. Mental status is at baseline. Sensory: No sensory deficit. Motor: No weakness. Psychiatric: Mood and Affect: Mood normal. Behavior: Behavior normal. Thought Content: Thought content normal. Judgment: Judgment normal. Scheduled Medications: 0.9% NaCl 3 mL Intracatheter q8h budesonide-formoterol 2 puff Inhalation BID dilTIAZem coated beads 24hr 120 mg Oral QDAY levoFLOXacin 500 mg Oral q24h pantoprazole EC 40 mg Oral QDAY posaconazole 300 mg Oral QDAY WITH DINNER valACYclovir 500 mg Oral BID PRN Medications: SALINE LOCK, INSERT AND MAINTAIN AND 0.9% NaCl AND 0.9% NaCl Continuous Infusions: Laboratory Data Recent Labs Component Name 03/13/24232503/04/24 1613 WBC 1.2* 1.0* HGB 11.6* 12.5* HCT 35.8* 38.8 PLTCOUNT 103* 110* MCV 86.5 88.4 Recent Labs Component Name 03/13/242325 PT 16.5* INR 1.4 PTT 31.6 Recent Labs Component Name 03/13/24232503/04/24 1613 NA 140 141 POTASSIUM 4.0 4.2 CL 109* 110* CO2 24 26 BUN 16 14 CREATININE 1.12 1.10 Recent Labs Component Name 03/13/24232503/04/24 1613 CALCIUM 9.3 9.6 PHOS 3.5 - Recent Labs Component Name 03/13/24232503/04/24 1613 PROT 6.6 7.1 ALB 3.7 3.8 ALKPHOS 109 130 AST 19 14 ALT 16 17 TBILI 0.5 0.4 No results for input(s): CKTOTAL , CKMBCK2 , TROPONINI in the last 09382 hours. No results for input(s): VANCORNDM , VANCTROUGH in the last 60089 hours. Microbiology Results (Displays last 21 days for this encounter ONLY) Procedure Component Value - Date/Time CYTOMEGALOVIRUS (CMV) QUANTITATIVE PLASMA [[id number]] Collected: 03/13/242325 Lab Status: In process Specimen: Blood Updated: 03/13/242336 QUINN-RICH[place] VIRUS QUANT BLOOD STL [[id number]] Collected: 03/13/242325 Lab Status: Final result Specimen: Blood Updated: 03/14/24 0856 EBV Quant by PCR, Interp Not detected Specimen Type Plasma Narrative: The [place] viral (EBV) DNA analysis utilized a plasma sample, real-time PCR (qPCR), and is reported as Not Detected, Detected (<35 IU/mL), Quantity (IU/mL) or >100,000,000 IU/mL. The analytic sensitivity (LOD) of the assay is 35 IU/mL. The linear range is from 35 IU/mL to 100,000,000 IU/mL. Values less than 35 IU/mL are reported as Detected (<35 IU/mL). Values greater sxvt554,000,000 IU/mL are reported as >100,000,000 IU/mL. The [...] FDA approved test methodology Bruce sharon EBV. Imaging No results found. Relevant labs and imaging data reviewed on [facility]. Assessment and Plan MDS (myelodysplastic syndrome) (HCC) (POA: Unknown) #Concern for AML vs MDS #Pancytopenia in setting of chronic leukopenia with recent abnormal BMBx -Prior workup and followed at [facility] for [facility]/P: 83yo M with chronic leukopenia -Underwent BMBx in the setting of growth factor use for diverticulitis which showed increased blasts, hypercellular marrow -Leukocytes improved to baseline (1.0K) -Heme Onc to follow: plan for repeat BMBx 12/6 am 0800 with full molecular/genetic studies to interrogate for high-grade myeloid neoplasm (AML vs MDS) -Started on Posaconazole, Valtrex, Levaquin for OI ppx -Iron studies show low ferritin, serum iron and sat, absent iron stores on marrow although normal MCV suggestive of mixed picture anemia -Was poised for GI eval/scope as OP, soluble transferrin receptor -CMV, EBV, HIV, Hep B all negative before admission -Peripheral blood flow cytometry and smear pending -Please obtain a full ID workup (BCx, UA, CXR) if there is concern for infection -Baseline panels obtained at arrival; trend CBC w/differential, CMP, DIC labs (PT/aPTT/fibrinogen),TLS labs (Uric acid, LDH, mag, phos) daily -If uric acid > 7-8 and concern for TLS, may need to give IV rasburicase. Would contact Heme Fellow if concerned -TTE pending, ordered -Transfusion parameters: -PRBC to keep Hgb >7 or if symptomatic from anemia. Only use Leukoreduced and irradiated blood products -PLT transfusion to keep PLT >10 K; but if bleeding, keep PLT >20K for minor bleeds and >50K for major bleeds, if possible. PLT >50K is adequate for most invasive procedures. PLT~100K is adequate for neurosurgical interventions -Does not need FFP/cryo if not bleeding. If bleeding, keep INR <1.8 with FFP and fibrinogen >100 with cryo (<150 if signs of bleeding). 1 unit of cryoprecipitate increases fibrinogen by approx 7 #Essential hypertension -Continue Cardizem -TTE 01/2020 with EF 77%hypertensive LVH, mild left atrial enlargement, mild mitral/aortic/tricuspid regurgitation, diastolic dysfunction #History of dysrhythmiae -HR surged with Filgastrim he says; EKG previously showed PVCs, RBBB, SVT, has been seeing Cards EPbut unclear current completed workup -Obtaining baseline EKG here -Telemetry and CCB as above #CAD -Stress test 08/2022 showing abnormal myocardial perfusion for mild mid to apicoinferior and apicoseptic ischemia, LV function WNL with EF 61% -No GDMT has been started, currently no active angina or equivalents -TTE to be repeated here, ordered #Stage 3b CKD -Scr 1.12 here, unclear baseline -Monitor renal function #GERD -Continue PPI #History of recurrent VTE -Diagnosed 2004 with provoked DVT/PE following hiatal hernia repair s/p Braxton filter placement, completed 6 months Coumadin; recurrence 2005 with RLE DVT, restarted Coumadin; LLE DVT found in 2011 while on Coumadin after holding for SBO management, bridged with Lovenox at the time but with RLEpain found to have recurred RLE DVT so switched to Eliquis -Notes show recent DOAC decrease to 2.5 mg BID after traveling but patient says he's been taking 5 mg BID -Holding Eliquis with falling platelets and plan for invasive procedure #Recent diverticulitis -Abdomen benign here, given Filgrastrim recently in setting of acute diverticular flare -Monitor for recurrence and consider abx #COPD -Continue Symbicort and PRN Albuterol #QAMAR -Continue CPAP here nightly Incidental findings requiring follow up: None Diet: DIET REGULAR DVT Prophylaxis: SCDs only Code Status: Full Code Dispo: Continue inpatient treatment. Borpreety Candidate?: No Electronically Signed By: Ghanshyam Dewey PA-C 03/14/2024 9:00 AM The total time spent was 60 minutes performing chart preparation, review of data and visit with thepatient, [id number]: I addressed a chronic illness with severe exacerbation/progression/side effect and/or an acute illness/injury that poses a threat to life or bodily functions (as documented above), [id number]: I reviewed the results of a unique test, ordered a unique test, or performed an assessment requiring an independent historian (as documented above), and [id number]: I discussed the management of the patient and/or the interpretation of a test with nursing staff, the care coordination team and all relevant consultants. DUST CLEANER AND SALVAGER * Jayro Powell, Graduate Nurse - 03/14/2024 12:16 AM CST Problem: Fall Risk Goal: Fall risk and fall related injury risk are minimized (interventions related to the fall risk can be found in the flowsheet documentation) Outcome: Progressing Problem: Pain/Discomfort Goal: Patient exhibits reduced pain/discomfort as evidenced by pain scores Outcome: Progressing Goal: Patient uses pharmacological and non-pharmacological pain management strategies. Outcome: Progressing Goal: Patient verbalizes acceptable level of pain relief and ability to engage in desired activity. Outcome: Progressing Problem: Infection Goal: Signs and symptoms of infections are decreased or avoided Outcome: Progressing [employer] * Jayro Powell Graduate Nurse - 03/13/2024 11:05 PM CST Myself and Natalie BROWN have both assessed Russ Burciaga's skin from head to toe. Based on our assessment the following risks have been identified: bruising to left hip and discoloration of lower extremities. Refer to flowsheet for irma score and interventions put in place. [employer] * Nancy Cowan MD - 03/13/2024 9:26 PM CST Hematology and Medical Oncology Brief Note: - Concern for Acute Leukemia: - Severe Neutropenia: - Chronic Leukopenia - Chronic Normocytic anemia - Iron Deficiency - Acute Thrombocytopenia - Acute Pancytopenia Latest Reference Range & Units 03/04/24 16:13 Ferritin 22 - 275 ng/mL 21 (L) Folate 7.0 - 31.4 ng/mL 17.7 Iron 50 - 175 ug/dL 31 (L) TIBC Calculated 240 - 450 ug/dL 321 Transferrin 174 - 382 mg/dL 257 Transferrin Saturation % 16 - 50 % 10 (L) Vitamin B12 213 - 816 pg/mL 524 Sodium 136 - 145 mmol/L 141 Potassium 3.5 - 4.5 mmol/L 4.2 Chloride 98 - 107 mmol/L 110 (H) CO2 22 - 29 mmol/L 26 Anion Gap 6 - 16 5 (L) BUN 7 - 26 mg/dL 14 Creatinine 0.71 - 1.16 mg/dL 1.10 eGFR >=90 mL/min/1.73 m2 68 (L) Glucose 70 - 99 mg/dL 121 (H) Calcium 8.4 - 10.2 mg/dL 9.6 BUN/Creatinine Ratio 7 - 23 13 Alkaline Phosphatase 40 - 150 U/L 130 ALT 5 - 55 U/L 17 AST 5 - 34 U/L 14 Protein Total 6.0 - 8.3 g/dL 7.1 Albumin 3.4 - 5.0 g/dL 3.8 Bilirubin Total 0.2 - 1.2 mg/dL 0.4 Osmolality Calculated 275 - 295 mOsm/kg 294 Albumin/Globulin Ratio 1.1 - 2.3 1.2 Copper 70.0 - 140.0 ug/dL 108.5 Zinc 60.0 - 120.0 ug/dL 62.4 C-Reactive Protein <=0.5 mg/dL 0.5 TSH 0.350 - 4.940 uIU/mL 0.961 WBC 4.0 - 10.7 x10E9/L 1.0 (L) RBC 4.30 - 5.80 x10E12/L 4.39 Hemoglobin 13.3 - 17.5 g/dL 12.5 (L) Hematocrit 38.7 - 51.1 % 38.8 MCV 80.0 - 98.0 fL 88.4 MCH 26.7 - 33.6 pg 28.5 MCHC 31.7 - 36.3 g/dL 32.2 Platelet Count 150 - 420 x10E9/L 110 (L) RDW-CV 11.3 - 14.8 % 16.8 (H) MPV 7.8 - 11.4 fL 12.4 (H) Monocytes Absolute 0.15 - 1.00 x10E9/L 0.07 (L) Neutrophils % Manual 41 - 74 % 13 (L) Lymphocytes % manual 17 - 47 % 74 (H) Monocytes % Manual 3 - 11 % 7 Eosinophils % Manual 0 - 7 % 4 Basophils % Manual 0 - 2 % 2 Neutrophils Absolute Manual 1.60 - 7.50 x10E9/L 0.13 (L) Lymphocytes Absolute Manual 1.00 - 4.40 x10E9/L 0.74 (L) Eosinophils Absolute Manual 0.00 - 0.60 x10E9/L 0.04 Basophil Absolute Manual 0.00 - 0.13 x10E9/L 0.02 RBC Morphology REVIEWED Microcytosis (none) MODERATE ! Schistocytes (none) FEW ! Large Platelets (none) PRESENT ! (L): Data is abnormally low (H): Data is abnormally high !: Data is abnormal Case Report Date Value Ref Range Status 02/12/2024 Final Flow Cytometry Case: [id number] Authorizing Provider: Rommel Dinh Collected: 02/12/2024 09:20 AM MD Luke Ordering Location: [facility] - Received: 02/12/2024 12:12 PM Pathology Lab Pathologist: Daniela Bronson MD Specimen: Bone Marrow 02/12/2024 Final Bone Marrow Pathology Report Case: [id number] Authorizing Provider: Rommel Dinh Collected: 02/12/2024 09:20 AM MD Luke Ordering Location: [facility] - Received: 02/13/2024 12:34 PM Pathology Lab Pathologist: Daniela Bronson MD Specimens: A) - Bone Marrow Clot B) - Bone Marrow Core Clinical History Date Value Ref Range Status 02/12/2024 Final Chronic leukopenia Final Diagnosis Date Value Ref Range Status 02/12/2024 Final Bone marrow, flow cytometric immunophenotyping: - 35% myeloblasts identified (20% by morphology), see comment - No diagnostic immunophenotypic evidence of monoclonal B-cells, an aberrant T- cell population, or plasma cell neoplasm Comment: Flow cytometry identifies 35% myeloblasts (20% are identified by aspirate smear review). While technically this percentage of blast fulfills diagnostic criteria for acute myeloid leukemia (AML), per the oncologist's consult note, the patient received Neupogen while hospitalized for divertic ulitis in January. This therapy could account for the increased percentage of myeloblasts and therefore may be reactive rather than neoplastic. Correlation with clinical history, morphologic review the bone marrow, and cytogenetic/molecular analysis is required. This case was discussed with Dr. Morton on 02/12/2024 at 1539. 02/12/2024 Final Bone marrow, iliac crest, core biopsy, clot section, and aspirate: - Increased myeloblasts (up to 30% by morphology) with mild trilineage dyspoiesis involving a hypercellular bone marrow (70-80% cellular), see comment - Absent iron stores - Patchy and mild increase in reticulin fibrosis (MF-1) Disclaimer Date Value Ref Range Status 02/12/2024 Final The performance characteristics of all immunohistochemical and indirect immunofluorescence stains (if any) cited in this report were determined by the [facility] of [facility]. Some of these tests were developed [...] and interpreted by the attending (teaching) pathologist. Gross Description Date Value Ref Range Status 09/27/2023 Final Specimen A: Received is one formalin filled container labeled with the patient's name and designated left neck. The specimen consists of a shave biopsy measuring [id number] mm. Jar 0. Specimen B: Received is [...] is serially sectioned and submitted in cassette 2.Jar 0. Microscopic Description Date Value Ref Range Status 02/12/2024 Final CD34 immunohistochemistry stains performed on the core biopsy and clot section highlight approximately 30% of total cells. Immunohistochemistry stains are performed in addition to flow cytometry given the cellular heterogeneity marrow. A reticulin stain of the core biopsy highlights a patchy and mild increase in reticulin fibrosis. Iron stains of the core biopsy and clot sections reveal absent stores. Pathologist Location at [facility] Date Value Ref Range Status 02/12/2024 [facility] Final 02/12/2024 [facility] Final Following are the Recommendations by Malignant Hematology service: On arrival, would recommend obtaining: - STAT CBC with differential, LFT, BMP, Mg, PO, Uric acid, DIC work up (D- Dimer, Fibrinogen and PT/PTT/INR), TLS (Uric acid, LDH) - Peripheral blood flow cytometry - Peripheral blood Pathological review. - Obtain a TTE to assess for EF and cardiac function - Will need a bone marrow biopsy and aspirate at next available time) scheduled for 12 PM 03/12/24) - May need IVFs if able to tolerate, especially if concern for TLS - Please obtain a full ID workup (BCx, UA, CXR) if there is concern for infection - If uric acid > 7-8 and concern for TLS, may need to give IV rasburicase. Would contact Heme Fellow if concerned -Recommend Trend CBC with differential, LFT, BMP DIC labs (PT/APTT/Fibrinogen), TLS labs (Uric acid, LDH ) daily -OI ppx: fungal/bacteria/viral/PJP: Levofloxacin 500 mg daily. Posaconazole 300 mg daily. Valtrex 500 mg BID. -Transfusion parameters: -PRBC to keep Hgb >7 or if symptomatic from anemia. Only use Leukoreduced and irradiated blood products. -PLT transfusion to keep PLT >10 K; but if bleeding, keep PLT >20K for minor bleeds and >50K for major bleeds, if possible. PLT >50K is adequate for most invasive procedures. PLT~100K is adequate for neurosurgical interventions. -Does not need FFP/cryo if not bleeding. If bleeding, keep INR <1.8 with FFP and fibrinogen >100 with cryo (<150 if signs of bleeding). 1 unit of cryoprecipitate increases fibrinogen by approx 7. -Transfusion parameters: -PRBC to keep Hgb >7 or if symptomatic from anemia. Only use Leukoreduced and irradiated blood products. -PLT transfusion to keep PLT >10 K; but if bleeding, keep PLT >20K for minor bleeds and >50K for major bleeds, if possible. PLT >50K is adequate for most invasive procedures. PLT~100K is adequate for neurosurgical interventions. -Does not need FFP/cryo if not bleeding. If bleeding, keep INR <1.8 with FFP and fibrinogen >100 with cryo (<150 if signs of bleeding). 1 unit of cryoprecipitate increases fibrinogen by approx 7. Will be discussed with the attending. Please follow attestation. Jonathan Ramirez MD Hematology and Medical Oncology Fellow/ PGY-4 [facility]. [employer] documented in this encounter H&P Notes * Ted Soler MD - 03/13/2024 9:34 PM CST Images from the original note were not included. General Medicine History & Physical Note Patient: Russ Burciaga (:1945) Room: [facility] [place] [facility] [place] Admit Date: 03/13/2024 Length of Stay: 0 Reason for Admission: Workup for possible AML SUBJECTIVE Russ Burciaga is a 78 year old male with h/o chronic leukopenia, diverticulitis, hypertension, GERD, coronary artery disease, recurrent DVT on Eliquis, who presents as a direct admission from Oncology for further workup of abnormal bone marrow biopsy and concern for AML. Patient does not currently have any complaints. His son and are present at bedside. I discussed with them that the plan as per discussion with the on-call oncologist is to proceed with a bone marrow biopsy tomorrow. The patient denies any new medications since his last Oncology appointment. 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 [place] A [place] fan of the [employer]. Allergies Allergies Allergen Reactions ??? Contrast-Gadolinium Agents For Mri Urticaria Home Medications ??? venetoclax (Venclexta) 100 MG tablet -albuterol -apixaban -bimatoprost eye gtt -cholecalciferol -diltiazem -folic acid -lansoprazole -symbicort -topical hydrocortisone OBJECTIVE Vitals Vitals: 03/13/24 1925 03/13/24 1930 03/13/241999 BP: 157/91 Pulse: 74 Resp: 16 Temp: 98.2 ??F (36.8 ??C) SpO2: 94% Weight: 99.2 kg (218 lb 9.6 oz) Height: 1.829 m (6') Estimated body mass index is 29.65 kg/m?? as calculated from the following: Height as of this encounter: 1.829 m (6'). Weight as of this encounter: 99.2 kg (218 lb 9.6 oz). I/Os No intake or output data in the 24 hours ending 03/13/242134 Physical Exam General: NAD HEENT: NC, AT, moist oral mucosa Neck: No JVD appreciated Heart: normal rate Lungs: non-labored respirations Abdomen: soft, NT, ND Extremities: no deformity, no cyanosis Neuro: No focal deficits Psych: Appropriate mood and affect Laboratory Data CBC: Recent Labs Lab 03/04/24 1613 WBC 1.0* HGB 12.5* HCT 38.8 MCV 88.4 PLTCOUNT 110* BMP: Recent Labs Lab 03/04/24 1613 NA 141 POTASSIUM 4.2 CL 110* CO2 26 BUN 14 CREATININE 1.10 CALCIUM 9.6 GLUCOSE 121* CMP: Recent Labs Lab 03/04/24 1613 AST 14 ALT 17 TBILI 0.4 ALKPHOS 130 ALB 3.8 PROT 7.1 Microbiology: Reviewed in [facility] Imaging Reviewed in [facility] Active Problems: MDS (myelodysplastic syndrome) (HCC) Assessment & Plan Chronic leukopenia Increased blasts on bone marrow biopsy -oncology planning to repeat bone marrow biopsy tomorrow with for molecular and genetic studies to interrogate for high-grade myeloid neoplasm such as MDS or AML -CBC, CMP, TLS and DIC labs -CMV and EBV screen -TTE -if he develops a fever, start neutropenic fever protocol Hypertension: Cardizem History of recurrent DVT: Eliquis to be started after bone marrow biopsy tomorrow ( will start at about noon) GERD: He is on lansoprazole at home, we will start pantoprazole while in-house COPD: Albuterol and Symbicort QAMAR: CPAP CKD: Monitor Daily Checklist VTE PPX [x] SCD [] SQ Heparin [] SQ Lovenox [] Therapeutic Anticoagulation Diet No diet orders on file LDA PIV Activity Activity as tolerated + OOBTC 3x daily as tolerated Consults None Disposition Inpatient Code Status No Order Signed: Ted Soler Jr., MD [employer] documented in this encounter Procedure Notes * Nancy Cowan MD - 03/15/2024 4:20 PM CSTProcedure(s): BONE MARROW BIOPSY (STL) Pre-Procedure Diagnose(s): 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) PROCEDURE: BONE MARROW ASPIRATION AND BIOPSY The patient was identified and time out was performed. The site was identified and marked. The areawas prepped and draped in sterile fashion. The area was numbed with around 5 mL 1% Lidocaine. Then the aspirate needle was inserted and used to get bone marrow aspirate. The needle was removed after aspiration. To obtain core biopsy Kadeshidi needle was inserted at a separate site with separate incision. Core biopsy was obtained x 1. The needle was removed and the area (posterior iliac spine) was dressed in sterile fashion. Patient was consented for procedure and sedation. Patient was given 2 mg Ativan before the procedure as anxiolytic. EBL: 5 mL Complications: none Specimens: Aspirate and core biopsy Dr. Xie was present for the the entire procedure. Jonathan Ramirez MD Hematology and Medical Oncology Fellow/ PGY-4 [facility]. [employer] Associated attestation - Zeus Xie MD - 03/15/2024 6:02 PM CHAR [employer] I was present for the corea elements of the procedures. Zeus Xie MD documented in this encounter Consult Notes * Sandro Smith MD - 03/14/2024 6:49 AM CST Images from the original note were not included. HEMATOLOGY/ONCOLOGY INPATIENT CONSULTATION NOTE Name: Russ Burciaga Age: [age] year old Date of : 1945 Date of Service: 03/13/2024 Requesting Provider / PCP: Timothy Banks MD Primary oncologist: Dr. Garcia Reason for Consult: MDS vs AML HEMATOLOGY & ONCOLOGY HISTORY Principal Diagnosis: MDS vs AML Current Therapy: to start below regimen after follow up on bone marrow biopsy on 03/15: Treatment Plan: AML (AZACITIDINE VENETOCLAX) Q28 DAYS INTRAVENOUS Chemotherapy: venetoclax (Venclexta), 0 of 1 cycle, Start date: --, End date: -- azaCITIDine (Vidaza) Infusion, Intravenous, 0 of 6 cycles Discontinue Reason: [Plan is still active] Prior Hematology/Oncology History: Oncology History MDS (myelodysplastic syndrome) (HCC) 03/13/2024 Initial Diagnosis MDS (myelodysplastic syndrome) (HCC) 03/15/2024 - Chemotherapy Start Date: 03/15/2024 (Planned) End Date: 08/08/2024 (Planned) Treatment Plan: AML (AZACITIDINE VENETOCLAX) Q28 DAYS INTRAVENOUS Chemotherapy: venetoclax (Venclexta), 0 of 1 cycle, Start date: --, End date: -- azaCITIDine (Vidaza) Infusion, Intravenous, 0 of 6 cycles Discontinue Reason: [Plan is still active] SUBJECTIVE History of Present Illness 78 yo M who was diagnosed with 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 Labs notable for WBC 1.8, CT A/P negative for hepatosplenomegaly. Imaging suggestive of pulmonary opacities likely infection. Underwent treatment for diverticulitis as well as Neupogen for neutropenia. Discharged with a WBC of 18.8. Bone marrow performed February 12, 2024: at that time, WBC had dropped back down to 1.2: morphology: increased myeloblasts (up to 30% by morphology) with mild trilineagea dyspoiesis involving a hypercellular bone marrow (70-80%), absent iron stores, patchy and mild increase in reticulin fibrosis MF-1 Bone marrow, flow cytometric immunophenotyping showing 35% myeloblasts identified (20% by morphology), diagnostic immunophenotypic evidence of monoclonal B-cells, an aberrant T-cell population, or plasma cell neoplasm. Aspirate with 20% blasts. FISH PML/DANTE negative. BCR/ABL unable to be performed. FISH AML normal. Pending FISH AML+MDS, chromosome analysis and peripheral myeloid malignancies mutation panel. Since having the leukopenia, patient denies any symptoms of chest pain, dyspnea on exertion, nausea, vomiting, fevers, cough. Overall he says he feels well. No complaints this AM. He is afebrile, HDS. Electrolytes, creatinine, LFT's WNL. CBC showing WBC 1.2, Hgb 11.6 and plts 103. ANC 100. TLS and DIC labs with low concern for either TLS or DIC. Past Medical & Surgical History Patient Active Problem List Diagnosis MDS (myelodysplastic syndrome) (HCC) No past medical history on file. No past surgical history on file. Past Oncology History Cancer Staging No matching staging information was found for the patient. Oncology History MDS (myelodysplastic syndrome) (HCC) 03/13/2024 Initial Diagnosis MDS (myelodysplastic syndrome) (HCC) 03/15/2024 - Chemotherapy Start Date: 03/15/2024 (Planned) End Date: 08/08/2024 (Planned) Treatment Plan: AML (AZACITIDINE VENETOCLAX) Q28 DAYS INTRAVENOUS Chemotherapy: venetoclax (Venclexta), 0 of 1 cycle, Start date: --, End date: -- azaCITIDine (Vidaza) Infusion, Intravenous, 0 of 6 cycles Discontinue Reason: [Plan is still active] Social History Social History Tobacco Use Smoking status: Never Passive exposure: Never Smokeless tobacco: Never Substance Use Topics Alcohol use: Not on file Family History No family history on file. Medications SCHEDULED MEDICATIONS: 0.9% NaCl injection 3 mL, Intracatheter, q8h budesonide-formoterol (Symbicort) 160-4.5 MCG/ACT inhaler 2 puff, Inhalation, BID dilTIAZem coated beads 24hr (Cardizem CD) capsule 120 mg, Oral, QDAY levoFLOXacin (Levaquin) tablet 500 mg, Oral, q24h pantoprazole EC (Protonix) tablet 40 mg, Oral, QDAY posaconazole (Noxafil) tablet 300 mg, Oral, QDAY WITH DINNER valACYclovir (Valtrex) tablet 500 mg, Oral, BID CONTINUOUS MEDICATIONS: PRN MEDICATIONS: 0.9% NaCl injection 1-10 mL, Intracatheter, PRN Allergies Allergies Allergen Reactions Contrast-Gadolinium Agents For Mri Urticaria OBJECTIVE Physical Exam Vitals: 03/13/24 1930 03/13/24 2000 03/14/24 0002 03/14/24 0406 BP: 157/91 155/74 121/72 Pulse: 74 65 58 Resp: 16 18 18 Temp: 98.2 ??F (36.8 ??C) 98.1 ??F (36.7 ??C) 98.1 ??F (36.7 ??C) SpO2: 94% 94% 96% Weight: Height: 1.829 m (6') Wt Readings from Last 3 Encounters: 03/13/24 99.2 kg (218 lb 9.6 oz) 03/04/24 100.2 kg (221 lb) PHYSICAL EXAM GENERAL: no acute distress; nontoxic HEENT: Head: normocephalic, atraumatic, without lesions Eyes: EOM intact, no scleral icterus, opens eyes spontaneously Ears: hearing intact Nose: external nose without lesions or asymmetry Mouth/Throat: MMM without lesions CARDIAC: chest wall symmetric and without deformity; no palpable thrill; normal rate and rhythm; normal S1 and S2, normal PMI; no murmurs, gallops, or rubs; no LE edema; 2+ distal pulses bilaterally,symmetric PULMONARY: breathing on room air with symmetric non-labored use of accessory muscles, normal inspiratory and expiratory phase, no wheezes on inspiration or expiration, no crackles ABDOMEN: non distended, normal bowel sounds, no tenderness to palpation in all four quadrants, epigastric region, or supra-pubic region MSK: full range of motion, no obvious asymmetry or atrophy of the muscles INTEGUMENTARY: warm, dry, no clubbing of the finger nails, no diaphoresis, no rash, IV sites clean NEURO: CN II-XII intact; strength 5/5 in proximal and distal upper and lower extremities; awake, alert, and oriented to person, place, time, and situation - AOx 4 ; follows commands; language and comprehension intact PSYCH: normal mood, normal affect, euthymic, no SI/HI Laboratory Results Recent Labs Component Name 03/13/24232503/04/24 1613 WBC 1.2* 1.0* RBC 4.14* 4.39 HGB 11.6* 12.5* HCT 35.8* 38.8 MCV 86.5 88.4 MCHC 32.4 32.2 PLTCOUNT 103* 110* NEUTABS 0.11* 0.07* 0.13* LYMPHABS 1.04 0.74* Recent Labs Component Name 03/13/24232503/04/24 1613 POTASSIUM 4.0 4.2 CO2 24 26 BUN 16 14 CREATININE 1.12 1.10 EGFR 67* 68* GLUCOSE 110* 121* CALCIUM 9.3 9.6 MAGNESIUM 2.2 - PHOS 3.5 - ALT 16 17 AST 19 14 ALKPHOS 109 130 Pathology Results Personally reviewed and summarized above in Hematology & Oncology History Radiology Results Personally reviewed and summarized above in Hematology & Oncology History ASSESSMENT Russ Burciaga is a 78 year old male with: Concern for acute leukemia vs MDS --Bone marrow performed February 12, 2024: at that time, WBC had dropped back down to 1.2: --Morphology: increased myeloblasts (up to 30% by morphology) with mild trilineagea dyspoiesis involving a hypercellular bone marrow (70-80%), absent iron stores, patchy and mild increase in reticulin fibrosis MF-1 --Flow cytometry: Bone marrow, flow cytometric immunophenotyping: --35% myeloblasts identified (20% by morphology), see comment --No diagnostic immunophenotypic evidence of monoclonal B-cells, an aberrant T- cell population, or plasma cell neoplasm FISH PML/DANTE negative BCR/ABL unable to be performed FISH AML normal Pending FISH AML+MDS, chromosome analysis Myeloid malignancies mutation panel --Seems to be slowly proliferating disease which may explain the lack of symptoms or concerns typically seen in acute leukemias, behaves like myelodysplastic disease despite the presence of >20% blasts could becoming acute leukemia from MDS; concern for TLS and DIC is low at this time 2. Chronic leukopenia 3. Severe neutropenia: ANC 100 RECOMMENDATIONS --Plan is to repeat bone marrow biopsy at 0800 on 03/15; please make NPO at midnight and continue to hold Eliquis --F/u FISH AML+MDS, chromosome analysis, myeloid malignancies mutation panel --Continue with LVQ, valtrex, and posaconazole for OI ppx --Will not initiate chemotherapy until after initial results of BMBx, has venetoclax at bedside butis NOT to take it until further evaluation of BMBx results and assessment by primary oncologist --Obtain a TTE to assess for EF and cardiac function --Obtain baseline EKG --May need IVFs if able to tolerate, especially if concern for TLS --Please obtain a full ID workup (BCx, UA, CXR) if there is concern for infection; right now concern is low --If uric acid > 7-8 and concern for TLS, may need to give IV rasburicase. Would contact Heme Fellow if concerned. Currently TLS labs are reassuring that concern for TLS is low. -OI ppx: fungal/bacteria/viral/PJP: Levofloxacin 500 mg daily. Posaconazole 300 mg daily. Valtrex 500 mg BID. --Recommend Trend CBC with differential, LFT, BMP DIC labs (PT/APTT/Fibrinogen), Hemolysis labs (Reticulocyte count, LDH/ Haptoglobin/direct and indirect bilirubin), HLH labs (Ferritin,Triglyceride, LDH, DDIMER) Daily TLS labs (Uric acid, LDH) daily --IVF: as needed if concerned for decreased PO intake but from TLS standpoint is okay to hold off for now --TLS ppx: low concern at this time, okay to hold off on allopurinol --OI ppx: LVQ, posaconazole, valtrex as above --GI ppx: protonix --DVT ppx: none --Labs and frequency: TLS/DIC daily for now --Access: PIV --Dispo: inpatient --Transfusion parameters: --PRBC to keep Hgb >7 or if symptomatic from anemia. Only use Leukoreduced and irradiated blood products. --PLT transfusion to keep PLT >10 K; but if bleeding, keep PLT >20K for minor bleeds and >50K for major bleeds, if possible. PLT >50K is adequate for most invasive procedures. PLT~100K isadequate for neurosurgical interventions. --Does not need FFP/cryo if not bleeding. If bleeding, keep INR <1.8 with FFP and fibrinogen >100 with cryo (<150 if signs of bleeding). 1 unit of cryoprecipitate increases fibrinogen by approx 7. Thank you for the opportunity to participate in the care of this patient. Hem/Onc consult service will continue to follow. Please don't hesitate to contact hem/onc consult fellow via the catalyst recovery operator or [facility] if any questions or clarifications. Don Smith MD Internal Medicine [employer] Associated attestation - Fab Lopez MD - 03/14/2024 8:25 PM CHAR [employer] ATTENDING ATTESTATION Date of service: 03/14/2024 I personally interviewed and examined Russ Burciaga on rounds with the resident on 03/14/2024. I agree with the findings and plan of care as documented by the resident. In addition, I note: Patient admitted from clinic with concern for AML vs high grade MDS. Plan is to obtain a BMBx followed by starting venetoclax and azacitidine. Patient was on Eliquis, so marrow will be done tomorrow with Eliquis held from last night. Plans discussed with the patient and his . All questions answered to their satisfaction. Fab Lopez MD, PhD Hematology/Oncology documented in this encounter Plan of Treatment Upcoming Encounters Date Type Department Care Team (Late st Contact Info) Description 04/11/2024 8:00 AM [employer] Hospital Encounter [facility] IV[facility] [address] [place] [address] Cindy Garcia MD [address] [place] [phone] 04/15/2024 8:30 AM [employer] Hospital Encounter [facility] [address] [place] [phone] 04/16/2024 9:00 AM [employer] Hospital Encounter [facility] [address] [place] [phone] 04/17/2024 8:30 AM [employer] Appointment [facility] [address] [place] [phone] 04/18/2024 9:30 AM [employer] Appointment [facility] [address] [place] [phone] 04/18/2024 10:30 AM [employer] Office Visit [facility] - Hematology/Oncology [address] [place] [phone] Cindy Garcia MD [address] [place] [phone] 04/19/2024 9:00 AM [employer] Appointment [facility] [address] [place] [phone] 05/13/2024 9:00 AM [employer] Appointment [facility] [address] [place] [phone] Pending Results Name Type Priority Associated Diagnoses Date /Time FISH PML/DANTE PANEL Pathology Cytology Routine MDS (myelodysplastic syndrome) (HCC) 03/15/2024 9:05 AM [employer] Scheduled Orders Name Type Priority Associated Diagnoses Order Schedule FISH PML/DANTE PANEL Pathology Cytology Routine MDS (myelodysplastic syndrome) (HCC) ONCE for 1 Occurrences starting 03/16/2024 until 03/16/2024 EKG 12-LEAD ECG Routine MDS (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, 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) 1 Occurrences starting 03/23/2024 until 03/23/2025 CBC W/ DIFFERENTIAL Lab Routine MDS (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, 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) 1 Occurrences starting 03/23/2024 until 03/18/2025 LDH BLOOD Lab Routine MDS (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, 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) 1 Occurrences starting 03/23/2024 until 03/18/2025 URIC ACID BLOOD Lab Routine MDS (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, 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) 1 Occurrences starting 03/23/2024 until 03/18/2025 COMPREHENSIVE METABOLIC PANEL Lab Routine MDS (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, 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) 1 Occurrences starting 03/23/2024 until 03/18/2025 PT-INR [facility] Lab Routine MDS (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, 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) 1 Occurrences starting 03/23/2024 until 03/18/2025 Scheduled Referrals Name Type Priority Associated Diagnoses Order Schedule Ref to [facility] Outpatient Referral Routine MDS (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, 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) 1 Occurrences starting 03/23/2024 until 03/23/2025 documented as of this encounter Procedures Procedure Name Priority Date/Time Associated Diagnosis Comments PTT H AM Draw 03/23/2024 12:25 AM [employer] PT-INR H AM Draw 03/23/2024 12:25 AM [employer] URIC ACID BLOOD Routine 03/23/2024 12:25 AM [employer] DIFFERENTIAL MANUAL AM Draw 03/23/2024 1 2:25 AM [employer] CBC W AUTO DIFFERENTIAL AM Draw 03/23/20 12:25 AM [employer] COMPREHENSIVE METABOLIC PANEL Routine 03/23/2024 12:25 AM [employer] PHOSPHORUS BLOOD Routine 03/23/2024 12:2 5 AM [employer] MAGNESIUM BLOOD Routine 03/23/2024 12:25 AM [employer] LDH BLOOD Routine 03/23/2024 12:25 AM [employer] URIC ACID BLOOD Routine 03/22/2024 6:20 PM [employer] COMPREHENSIVE METABOLIC PANEL Routine 03/22/2024 6:20 PM [employer] PHOSPHORUS BLOOD Routine 03/22/2024 6:20 PM [employer] MAGNESIUM BLOOD Routine 03/22/2024 6:20 PM [employer] LDH BLOOD Routine 03/22/2024 6:20 PM [employer] PTT [facility] AM Draw 03/22/2024 6:58 AM [employer] PT-INR [facility] AM Draw 03/22/2024 6:58 AM [employer] URIC ACID BLOOD Routine 03/22/2024 6:58 AM [employer] DIFFERENTIAL MANUAL AM Draw 03/22/2024 6 :58 AM [employer] CBC W AUTO DIFFERENTIAL AM Draw 03/22/20 6:58 AM [employer] COMPREHENSIVE METABOLIC PANEL Routine 03/22/2024 6:58 AM [employer] PHOSPHORUS BLOOD Routine 03/22/2024 6:58 AM [employer] MAGNESIUM BLOOD Routine 03/22/2024 6:58 AM [employer] LDH BLOOD Routine 03/22/2024 6:58 AM [employer] PTT [facility] AM Draw 03/21/2024 3:47 AM [employer] PT-INR [facility] AM Draw 03/21/2024 3:47 AM [employer] URIC ACID BLOOD Routine 03/21/2024 3:47 AM [employer] CBC W AUTO DIFFERENTIAL AM Draw 03/21/20 3:47 AM [employer] COMPREHENSIVE METABOLIC PANEL Routine 03/21/2024 3:47 AM [employer] PHOSPHORUS BLOOD Routine 03/21/2024 3:47 AM [employer] MAGNESIUM BLOOD Routine 03/21/2024 3:47 AM [employer] LDH BLOOD Routine 03/21/2024 3:47 AM [employer] URIC ACID BLOOD Routine 03/20/2024 4:07 PM [employer] COMPREHENSIVE METABOLIC PANEL Routine 03/20/2024 4:07 PM [employer] PHOSPHORUS BLOOD Routine 03/20/2024 4:07 PM [employer] MAGNESIUM BLOOD Routine 03/20/2024 4:07 PM [employer] LDH BLOOD Routine 03/20/2024 4:07 PM [employer] PTT [facility] AM Draw 03/20/2024 6:28 AM [employer] PT-INR [facility] AM Draw 03/20/2024 6:28 AM [employer] URIC ACID BLOOD Routine 03/20/2024 6:28 AM [employer] DIFFERENTIAL MANUAL AM Draw 03/20/2024 6 :28 AM [employer] CBC W AUTO DIFFERENTIAL AM Draw 03/20/20 6:28 AM [employer] COMPREHENSIVE METABOLIC PANEL AM Draw 03/20/2024 6:28 AM [employer] PHOSPHORUS BLOOD Routine 03/20/2024 6:28 AM [employer] MAGNESIUM BLOOD Routine 03/20/2024 6:28 AM [employer] LDH BLOOD Routine 03/20/2024 6:28 AM [employer] PTT [facility] AM Draw 03/19/2024 6:23 AM [employer] PT-INR [facility] AM Draw 03/19/2024 6:23 AM [employer] URIC ACID BLOOD Routine 03/19/2024 6:23 AM [employer] DIFFERENTIAL MANUAL AM Draw 03/19/2024 6 :23 AM [employer] CBC W AUTO DIFFERENTIAL AM Draw 03/19/20 24 6:23 AM [employer] COMPREHENSIVE METABOLIC PANEL AM Draw 03/19/2024 6:23 AM [employer] PHOSPHORUS BLOOD Routine 03/19/2024 6:23 AM [employer] MAGNESIUM BLOOD Routine 03/19/2024 6:23 AM [employer] LDH BLOOD Routine 03/19/2024 6:23 AM [employer] EKG 12-LEAD Routine 03/18/2024 1:48 PM [employer] Inverted T wave [facility]TT [facility] AM Draw 03/18/2024 8:33 AM [employer] PT-INR [facility] AM Draw 03/18/2024 8:33 AM [employer] URIC ACID BLOOD Routine 03/18/2024 8:33 AM [employer] PATHOLOGY PERIPHERAL SMEAR REVIEW AM Draw 03/18/2024 8:33 AM [employer] DIFFERENTIAL MANUAL AM Draw 03/18/2024 8 :33 AM [employer] CBC W AUTO DIFFERENTIAL AM Draw 03/18/20 8:33 AM [employer] COMPREHENSIVE METABOLIC PANEL AM Draw 03/18/2024 8:33 AM [employer] PHOSPHORUS BLOOD Routine 03/18/2024 8:33 AM [employer] MAGNESIUM BLOOD Routine 03/18/2024 8:33 AM [employer] LDH BLOOD Routine 03/18/2024 8:33 AM [employer] PTT [facility] AM Draw 03/17/2024 5:28 AM [employer] PT-INR [facility] AM Draw 03/17/2024 5:28 AM [employer] URIC ACID BLOOD Routine 03/17/2024 5:28 AM [employer] DIFFERENTIAL MANUAL AM Draw 03/17/2024 5 :28 AM [employer] CBC W AUTO DIFFERENTIAL AM Draw 03/17/20 24 5:28 AM [employer] COMPREHENSIVE METABOLIC PANEL AM Draw 03/17/2024 5:28 AM [employer] PHOSPHORUS BLOOD Routine 03/17/2024 5:28 AM [employer] MAGNESIUM BLOOD Routine 03/17/2024 5:28 AM [employer] LDH BLOOD Routine 03/17/2024 5:28 AM [employer] PTT [facility] AM Draw 03/16/2024 12:04 AM [employer] PT-INR [facility] AM Draw 03/16/2024 12:04 AM [employer] URIC ACID BLOOD Routine 03/16/2024 12:04 AM [employer] DIFFERENTIAL MANUAL AM Draw 03/16/2024 1 2:04 AM [employer] CBC W AUTO DIFFERENTIAL AM Draw 03/16/20 24 12:04 AM [employer] COMPREHENSIVE METABOLIC PANEL AM Draw 03/16/2024 12:04 AM [employer] PHOSPHORUS BLOOD Routine 03/16/2024 12:0 4 AM [employer] MAGNESIUM BLOOD Routine 03/16/2024 12:04 AM [employer] LDH BLOOD Routine 03/16/2024 12:04 AM [employer] ECHO COMPLETE W CONTRAST Routine 03/15/2024 1:47 PM [employer] MDS (myelodysplastic syndrome) (HCC) FISH MDS PANEL BLOOD OR BONE MARROW Routine 03/15/2024 9:05 AM [employer] MDS (myelodysplastic syndrome) (HCC) FISH AML PANEL BLOOD OR BM RFLX PML/DANTE Routine 03/15/2024 9:05 AM [employer] MDS (myelodysplastic syndrome) (HCC) FLOW CYTOMETRY BONE MARROW Routine 03/15/2024 9:05 AM [employer] MDS (myelodysplastic syndrome) (HCC) BONE MARROW BIOPSY (STL) Routine 03/15/2024 9:05 AM [employer] MDS (myelodysplastic syndrome) (HCC) MYELOID MALIGNANCIES MUTATION PNL Routine 03/15/2024 9:05 AM [employer] MDS (myelodysplastic syndrome) (HCC) LAB MISC TEST (NOT BLOOD) Routine 03/15/2024 9:05 AM [employer] LAB MISC TEST (NOT BLOOD) Routine 03/15/2024 9:05 AM [employer] LAB MISC TEST (NOT BLOOD) Routine 03/15/2024 9:05 AM [employer] FISH PML/DANTE PANEL Routine 03/15/2024 9 :05 AM [employer] MDS (myelodysplastic syndrome) (HCC) CHROMOSOME ANALYSIS BONE MARROW PANEL Routine 03/15/2024 9:05 AM [employer] MDS (myelodysplastic syndrome) (HCC) PTT [facility] AM Draw 03/15/2024 7:53 AM [employer] PT-INR [facility] AM Draw 03/15/2024 7:53 AM [employer] URIC ACID BLOOD Routine 03/15/2024 7:53 AM [employer] DIFFERENTIAL MANUAL AM Draw 03/15/2024 7 :53 AM [employer] CBC W AUTO DIFFERENTIAL AM Draw 03/15/20 7:53 AM [employer] COMPREHENSIVE METABOLIC PANEL AM Draw 03/15/2024 7:53 AM [employer] PHOSPHORUS BLOOD Routine 03/15/2024 7:53 AM [employer] MAGNESIUM BLOOD Routine 03/15/2024 7:53 AM [employer] LDH BLOOD Routine 03/15/2024 7:53 AM [employer] EKG 12-LEAD STAT 03/14/2024 12:30 PM [employer] MDS (myelodysplastic syndrome) (HCC) FLOW CYTOMETRY BLOOD PROFILE Routine 03/14/2024 10:32 AM [employer] MDS (myelodysplastic syndrome) (HCC) PTT [facility] Routine 03/13/2024 11:26 PM [employer] PT-INR [facility] Routine 03/13/2024 11:26 PM [employer] CYTOMEGALOVIRUS (CMV) QUANTITATIVE PLASMA Routine 03/13/2024 11:26 PM [employer] QUINN-RICHMOND VIRUS QUANT BLOOD STL Routine 03/13/2024 11:26 PM [employer] URIC ACID BLOOD Routine 03/13/2024 11:26 PM [employer] D-DIMER Routine 03/13/2024 11:26 PM [employer] FIBRINOGEN ACTIVITY Routine 03/13/2024 1 1:26 PM [employer] DIFFERENTIAL MANUAL STAT 03/13/2024 1 1:26 PM [employer] CBC W AUTO DIFFERENTIAL STAT 03/13/20 11:26 PM [employer] COMPREHENSIVE METABOLIC PANEL STAT 03/13/2024 11:26 PM [employer] PHOSPHORUS BLOOD Routine 03/13/2024 11:2 6 PM [employer] MAGNESIUM BLOOD Routine 03/13/2024 11:26 PM [employer] LDH BLOOD Routine 03/13/2024 11:26 PM [employer] CHROMOSOME ANALYSIS LEUKEMIA BLD Routine 03/04/2024 4:13 PM [employer] MDS (myelodysplastic syndrome) (HCC) documented in this encounter Results * (ABNORMAL) DIFFERENTIAL MANUAL (03/23/2024 12:25 AM [employer]) Neutrophil % 17(L) 41 - 74 % 03/23/2024 2:28 AM [facility] Lymphocyte % 77(H) 17 - 47 % 03/23/2024 2:28 AM [facility] Monocyte % 6 3 - 11 % 03/23/2024 2:28 AM [facility] Neutrophil Absolute 0.10(L) 1.60 - 7.50 x10E9/L 03/23/2024 2:28 AM [facility] Lymphocyte Absolute 0.46(L) 1.00 - 4.40 x10E9/L 03/23/2024 2:28 AM [facility] Monocyte Absolute 0.04(L) 0.15 - 1.00 x10E9/L 03/23/2024 2:28 AM [facility] RBC Morphology REVIEWED 03/23/2024 2:28 AM [facility] Steven Cells MODERATE(A) (none) 03/23/2024 2:28 AM [facility] Schistocytes FEW(A) (none) 03/23/2024 2:28 AM [employer] [facility] Large Platelets PRESENT(A) (none) 2:28 AM [employer] [facility] Blood BLOOD SPECIMEN / Unknown Venipuncture / Unknown 03/23/2024 12:25 AM [employer] 03/23/2024 1:07 AM [employer] Ghanshyam Dewey PA-C LAB - HEMATOLOGY ORD ERABLES [address] [address], [facility] [phone] * MAGNESIUM BLOOD (03/23/2024 12:25 AM [employer]) Magnesium 1.9 1.6 - 2.6 mg/dL 03/23/2024 1:36 AM [employer] [facility] Blood BLOOD SPECIMEN / Unknown Venipuncture / Unknown 03/23/2024 12:25 AM [employer] 03/23/2024 1:07 AM [employer] Josh Momin MD LAB - CHEMISTRY ORD ERABLES Performing Organization Address City/[facility]/ZIP Co de Phone Number [address] [address], [place] [phone] * URIC ACID BLOOD (03/23/2024 12:25 AM [employer]) Uric Acid 4.2 3.5 - 7.2 mg/dL 03/23/2024 1:36 AM [employer] [facility] Blood BLOOD SPECIMEN / Unknown Venipuncture / Unknown 03/23/2024 12:25 AM [employer] 03/23/2024 1:07 AM [employer] Josh Momin MD LAB - CHEMISTRY ORD ERABLES Performing Organization Address City/[facility]/ZIP Co de Phone Number [address] [address], [place] [phone] * (ABNORMAL) PHOSPHORUS BLOOD (03/23/2024 12:25 AM [employer]) Phosphorus 2.5(L) 2.8 - 5.1 mg/dL 03/23/2024 1:36 AM [facility] Blood BLOOD SPECIMEN / Unknown Venipuncture / Unknown 03/23/2024 12:25 AM [employer] 03/23/2024 1:07 AM [employer] Josh Momin MD LAB - CHEMISTRY ORD ERABLES Performing Organization Address City/[facility]/ZIP Co de Phone Number [facility] [address] [place] [address] [phone] * (ABNORMAL) COMPREHENSIVE METABOLIC PANEL (03/23/2024 12:25 AM [facility]) Pathologist [facility] BUN 12 7 - 26 mg/dL 03/23/2024 1:36 AM [facility] Creatinine 1.06 0.71 - 1.16 mg/dL 03/23/2024 1:36 AM [facility] Sodium 141 136 - 145 mmol/L 03/23/2024 1:36 AM [facility] Potassium 3.6 3.5 - 4.5 mmol/L 03/23/2024 1:36 AM [facility] Chloride 108(H) 98 - 107 mmol/L 03/23/2024 1:36 AM [facility] CO2 23 22 - 29 mmol/L 03/23/2024 1:36 AM [facility] Glucose 130(H) 70 - 99 mg/dL 03/23/2024 1:36 AM [facility] Calcium 8.7 8.4 - 10.2 mg/dL 03/23/2024 1:36 AM [facility] Protein Total 5.9(L) 6.0 - 8.3 g/dL 03/23/2024 1:36 AM [facility] Albumin 3.1(L) 3.4 - 5.0 g/dL 03/23/2024 1:36 AM [facility] Bilirubin Total 0.6 0.2 - 1.2 mg/dL 03/23/2024 1:36 AM [facility] Alkaline Phosphatase 105 40 - 150 U/L 03/23/2024 1:36 AM [facility] ALT 30 5 - 55 U/L 03/23/2024 1:36 AM [facility] AST 26 5 - 34 U/L 03/23/2024 1:36 AM [facility] Anion Gap 10 6 - 16 03/23/2024 1:36 AM [facility] BUN/Creatinine Ratio 11 7 - 23 03/23/2024 1:36 AM [facility] Osmolality Calculated 294 275 - 295 mOsm/kg 03/23/2024 1:36 AM [facility] Albumin/Globulin Ratio 1.1 1.1 - 2.3 03/23/2024 1:36 AM [facility] eGFR by CKD-EPI 71(L) >=90 mL/min/1.7 3 m2 03/23/2024 1:36 AM [facility] Blood BLOOD SPECIMEN / Unknown Venipuncture / Unknown 03/23/2024 12:25 AM [facility] 03/23/2024 1:07 AM [employer] Josh Momin MD LAB - CHEMISTRY ORD ERABLES [address] [address], [facility] [phone] * LDH BLOOD (03/23/2024 12:25 AM [employer] [facility]) LDH Total 173 125 - 243 Units/L 03/23/2024 1:36 AM [facility] Blood BLOOD SPECIMEN / Unknown Venipuncture / Unknown 03/23/2024 12:25 AM [facility] 03/23/2024 1:07 AM [employer] [facility] [employer] Josh Momin MD LAB - CHEMISTRY ORD ERABLES [address] [address], [place] [phone] * PTT [facility] (03/23/2024 12:25 AM [employer]) APTT 35.4 23.0 - 38.4 Seconds 03/23/2024 1:31 AM [facility] Comment:Suggested therapeuti c range for full dose I.V. unfractionated heparin therapy for venous 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 is 71 to 109 seconds. Blood BLOOD SPECIMEN / Unknown Venipuncture / Unknown 03/23/2024 12:25 AM [facility] 03/23/2024 1:05 AM [employer] [facility] [facility] [employer] Ghanshyam Dewey PA-C LAB - COAGULATION OR DERABLES Performing Organization Address City/[facility]/ZIP Co de Phone Number [address] [address], [facility] [phone] * (ABNORMAL) PT-INR [facility] (03/23/2024 12:25 AM [employer]) PT 17.2(H) 12.1 - 14.8 Seconds 03/23/2024 1:31 AM [facility] INR 1.4 See Comment 03/23/2024 1:31 AM [facility] Comment:The suggested therap eutic range for standard coumadin (warfarin) therapy is an INR of 2.0-3.0. For high-risk patients (Mechanical Mitral Valve Prosthesis, etc.), the suggested prophylactic therapeutic range is an INR of 2.5-3.5. Blood BLOOD SPECIMEN / Unknown Venipuncture / Unknown 03/23/2024 12:25 AM [facility] 03/23/2024 1:05 AM [employer] [facility] [employer] Ghanshyam Dewey PA-C LAB - COAGULATION OR DERABLES [address] [address], [facility] [phone] * (ABNORMAL) CBC W AUTO DIFFERENTIAL (03/23/2024 12:25 AM [facility]) WBC 0.6(LL) 4.0 - 10.7 x10E9/L 03/23/2024 2:30 AM [employer] [facility] [employer] RBC Count 3.71(L) 4.30 - 5.80 x10E12/L 03/23/2024 2:30 AM [facility] Hemoglobin 10.6(L) 13.3 - 17.5 g/dL 03/23/2024 2:30 AM [facility] Hematocrit 32.2(L) 38.7 - 51.1 % 03/23/2024 2:30 AM [facility] MCV 86.8 80.0 - 98.0 fL 03/23/2024 2:30 AM [facility] MCH 28.6 26.7 - 33.6 pg 03/23/2024 2:30 AM [facility] MCHC 32.9 31.7 - 36.3 g/dL 03/23/2024 2:30 AM [facility] RDW-CV 17.3(H) 11.3 - 14.8 % 03/23/2024 2:30 AM [facility] Platelet Count 64(L) 150 - 420 x10E9/L 03/23/2024 2:30 AM [facility] MPV 03/23/2024 2:30 AM [facility] Comment:Unable to report Preliminary Absolute Neutrophil 0.09(L) 1.60 - 7.50 x10E9/L 03/23/2024 2:30 AM [facility] Blood BLOOD SPECIMEN / Unknown Venipuncture / Unknown 03/23/2024 12:25 AM [facility] 03/23/2024 1:07 AM [facility] [employer] Ghanshyam Dewey PA-C LAB - HEMATOLOGY ORD ERABLES [address] [address], [place] [phone] * MAGNESIUM BLOOD (03/22/2024 6:20 PM [facility]) Magnesium 2.0 1.6 - 2.6 mg/dL 03/22/2024 7:23 PM [employer] Blood BLOOD SPECIMEN / Unknown Lab Venipuncture / Unknown 03/22/2024 6:20 PM [employer] [facility] [employer] 03/22/2024 6:56 PM [facility] [employer] [facility] [employer] Josh Momin MD LAB - CHEMISTRY ORD ERABLES [address] [address], [place] [phone] * URIC ACID BLOOD (03/22/2024 6:20 PM [facility] [employer]) Pathologist [facility] Uric Acid 4.5 3.5 - 7.2 mg/dL 03/23/2024 12:03 AM [facility] Blood BLOOD SPECIMEN / Unknown Lab Venipuncture / Unknown 03/22/2024 6:20 PM [facility] [employer] 03/22/2024 6:56 PM [employer] Josh Momin MD LAB - CHEMISTRY ORD ERABLES [facility] [address] [place] [address], [facility] [phone] * PHOSPHORUS BLOOD (03/22/2024 6:20 PM [facility]) Pathologist [facility] Phosphorus 2.9 2.8 - 5.1 mg/dL 03/22/2024 7:23 PM [facility] Blood BLOOD SPECIMEN / Unknown Lab Venipuncture / Unknown 03/22/2024 6:20 PM [facility] [employer] 03/22/2024 6:56 PM [employer] Josh Momin MD LAB - CHEMISTRY ORD ERABLES [facility] [address] [place] [id number], [facility] [phone] * (ABNORMAL) COMPREHENSIVE METABOLIC PANEL (03/22/2024 6:20 PM [facility]) Pathologist [facility] BUN 13 7 - 26 mg/dL 03/22/2024 7:23 PM [facility] Creatinine 1.08 0.71 - 1.16 mg/dL 03/22/2024 7:23 PM [facility] Sodium 141 136 - 145 mmol/L 03/22/2024 7:23 PM [facility] Potassium 3.8 3.5 - 4.5 mmol/L 03/22/2024 7:23 PM [facility] Chloride 109(H) 98 - 107 mmol/L 03/22/2024 7:23 PM [facility] CO2 24 22 - 29 mmol/L 03/22/2024 7:23 PM [facility] Glucose 113(H) 70 - 99 mg/dL 03/22/2024 7:23 PM [facility] Calcium 8.5 8.4 - 10.2 mg/dL 03/22/2024 7:23 PM [facility] Protein Total 6.2 6.0 - 8.3 g/dL 03/22/2024 7:23 PM [facility] Albumin 3.2(L) 3.4 - 5.0 g/dL 03/22/2024 7:23 PM [facility] Bilirubin Total 0.8 0.2 - 1.2 mg/dL 03/22/2024 7:23 PM [facility] Alkaline Phosphatase 107 40 - 150 U/L 03/22/2024 7:23 PM [facility] ALT 31 5 - 55 U/L 03/22/2024 7:23 PM [facility] AST 25 5 - 34 U/L 03/22/2024 7:23 PM [facility] Anion Gap 8 6 - 16 03/22/2024 7:23 PM [facility] BUN/Creatinine Ratio 12 7 - 23 03/22/2024 7:23 PM [facility] Osmolality Calculated 293 275 - 295 mOsm/kg 03/22/2024 7:23 PM [facility] Albumin/Globulin Ratio 1.1 1.1 - 2.3 03/22/2024 7:23 PM [facility] eGFR by CKD-EPI 70(L) >=90 mL/min/1.7 3 m2 03/22/2024 7:23 PM [facility] Blood BLOOD SPECIMEN / Unknown Lab Venipuncture / Unknown 03/22/2024 6:20 PM [facility] [employer] 03/22/2024 6:56 PM [facility] Josh Momin MD LAB - CHEMISTRY ORD ERABLES [facility] [address] [place] [address], [facility] [phone] * LDH BLOOD (03/22/2024 6:20 PM [facility] [facility] LDH Total 168 125 - 243 Units/L 03/22/2024 7:23 PM [facility] Blood BLOOD SPECIMEN / Unknown Lab Venipuncture / Unknown 03/22/2024 6:20 PM [facility] 03/22/2024 6:56 PM [employer] Josh Momin MD LAB - CHEMISTRY ORD ERABLES [facility] [address] [place] [address] [phone] * (ABNORMAL) DIFFERENTIAL MANUAL (03/22/2024 6:58 AM [facility] [employer]) Pathologist [facility] Neutrophil % 6(L) 41 - 74 % 03/22/2024 9:04 AM [facility] Lymphocyte % 82(H) 17 - 47 % 03/22/2024 9:04 AM [facility] Monocyte % 8 3 - 11 % 03/22/2024 9:04 AM [facility] Eosinophil % 4 0 - 7 % 03/22/2024 9:04 AM [facility] Neutrophil Absolute 0.03(L) 1.60 - 7.50 x10E9/L 03/22/2024 9:04 AM [facility] Lymphocyte Absolute 0.41(L) 1.00 - 4.40 x10E9/L 03/22/2024 9:04 AM [facility] Monocyte Absolute 0.04(L) 0.15 - 1.00 x10E9/L 03/22/2024 9:04 AM [facility] Eosinophil Absolute 0.02 0.00 - 0.60 x10E9/L 03/22/2024 9:04 AM [facility] RBC Morphology REVIEWED 03/22/2024 9:04 AM [facility] Microcytosis MODERATE(A) (none) 03/22/2024 9:04 AM [facility] Large Platelets PRESENT(A) (none) 9:04 AM [facility] Blood BLOOD SPECIMEN / Unknown Lab Venipuncture / Unknown 03/22/2024 6:58 AM [facility] [employer] 03/22/2024 7:27 AM [facility] [employer] Ghanshyam Dewey PA-C LAB - HEMATOLOGY ORD ERABLES [address] [address], [place] [phone] * MAGNESIUM BLOOD (03/22/2024 6:58 AM [facility]) Magnesium 1.9 1.6 - 2.6 mg/dL 03/22/2024 7:57 AM [employer] [employer] Blood BLOOD SPECIMEN / Unknown Lab Venipuncture / Unknown 03/22/2024 6:58 AM [employer] [facility] [employer] 03/22/2024 7:30 AM [employer] Josh Momin MD LAB - CHEMISTRY ORD ERABLES Performing Organization Address City/[facility]/ZIP Co de Phone Number [address] [address], [place] [phone] * URIC ACID BLOOD (03/22/2024 6:58 AM [facility] [employer]) Uric Acid 5.0 3.5 - 7.2 mg/dL 03/22/2024 7:57 AM [employer] [employer] Blood BLOOD SPECIMEN / Unknown Lab Venipuncture / Unknown 03/22/2024 6:58 AM [facility] [employer] 03/22/2024 7:30 AM [employer] Josh Momin MD LAB - CHEMISTRY ORD ERABLES [address] [address], [place] [phone] * PHOSPHORUS BLOOD (03/22/2024 6:58 AM [facility] [employer]) Phosphorus 2.8 2.8 - 5.1 mg/dL 03/22/2024 7:57 AM [employer] [employer] Blood BLOOD SPECIMEN / Unknown Lab Venipuncture / Unknown 03/22/2024 6:58 AM [employer] [facility] [employer] 03/22/2024 7:30 AM [employer] Josh Momin MD LAB - CHEMISTRY ORD ERABLES [facility] [address] [place] [address], [facility] [phone] * (ABNORMAL) COMPREHENSIVE METABOLIC PANEL (03/22/2024 6:58 AM [facility]) BUN 11 7 - 26 mg/dL 03/22/2024 7:57 AM [facility] Creatinine 1.11 0.71 - 1.16 mg/dL 03/22/2024 7:57 AM [facility] Sodium 141 136 - 145 mmol/L 03/22/2024 7:57 AM [facility] Potassium 3.8 3.5 - 4.5 mmol/L 03/22/2024 7:57 AM [facility] Chloride 110(H) 98 - 107 mmol/L 03/22/2024 7:57 AM [facility] CO2 24 22 - 29 mmol/L 03/22/2024 7:57 AM [facility] Glucose 103(H) 70 - 99 mg/dL 03/22/2024 7:57 AM [facility] Calcium 8.6 8.4 - 10.2 mg/dL 03/22/2024 7:57 AM [facility] Protein Total 5.6(L) 6.0 - 8.3 g/dL 03/22/2024 7:57 AM [facility] Albumin 2.9(L) 3.4 - 5.0 g/dL 03/22/2024 7:57 AM [facility] Bilirubin Total 0.9 0.2 - 1.2 mg/dL 03/22/2024 7:57 AM [facility] Alkaline Phosphatase 97 40 - 150 U/L 03/22/2024 7:57 AM [facility] ALT 25 5 - 55 U/L 03/22/2024 7:57 AM [facility] AST 19 5 - 34 U/L 03/22/2024 7:57 AM [facility] Anion Gap 7 6 - 16 03/22/2024 7:57 AM [facility] BUN/Creatinine Ratio 10 7 - 23 03/22/2024 7:57 AM [facility] Osmolality Calculated 292 275 - 295 mOsm/kg 03/22/2024 7:57 AM [facility] Albumin/Globulin Ratio 1.1 1.1 - 2.3 03/22/2024 7:57 AM [facility] eGFR by CKD-EPI 68(L) >=90 mL/min/1.7 3 m2 03/22/2024 7:57 AM [facility] Blood BLOOD SPECIMEN / Unknown Lab Venipuncture / Unknown 03/22/2024 6:58 AM [facility] [employer] 03/22/2024 7:30 AM [employer] Josh Momin MD LAB - CHEMISTRY ORD ERABLES [address] [address], [facility] [phone] * LDH BLOOD (03/22/2024 6:58 AM [facility] [employer] [facility] [employer]) LDH Total 133 125 - 243 Units/L 03/22/2024 7:57 AM [facility] Blood BLOOD SPECIMEN / Unknown Lab Venipuncture / Unknown 03/22/2024 6:58 AM [employer] [facility] [employer] 03/22/2024 7:30 AM [employer] Josh Momin MD LAB - CHEMISTRY ORD ERABLES Performing Organization Address City/[facility]/ZIP Co de Phone Number [address] [address], [place] [phone] * PTT [facility] (03/22/2024 6:58 AM [employer]) APTT 34.9 23.0 - 38.4 Seconds 03/22/2024 7:48 AM [facility] Comment:Suggested therapeuti c range for full dose I.V. unfractionated heparin therapy for venous 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 is 71 to 109 seconds. Blood BLOOD SPECIMEN / Unknown Lab Venipuncture / Unknown 03/22/2024 6:58 AM [facility] [facility] [employer] 03/22/2024 7:25 AM [employer] Ghanshyam Dewey PA-C LAB - COAGULATION OR DERABLES Performing Organization Address [facility] Co de Phone Number [facility] [address] [place] [address], [facility] [phone] * (ABNORMAL) PT-INR [facility] (03/22/2024 6:58 AM [employer]) [facility] PT 17.5(H) 12.1 - 14.8 Seconds 03/22/2024 7:48 AM [facility] INR 1.5 See Comment 03/22/2024 7:48 AM [facility] Comment:The suggested therap eutic range for standard coumadin (warfarin) therapy is an INR of 2.0-3.0. For high-risk patients (Mechanical Mitral Valve Prosthesis, etc.), the suggested prophylactic therapeutic range is an INR of 2.5-3.5. Blood BLOOD SPECIMEN / Unknown Lab Venipuncture / Unknown 03/22/2024 6:58 AM [employer] [employer] 03/22/2024 7:25 AM [facility] Ghanshyam Dewey PA-C LAB - COAGULATION OR DERABLES Performing Organization Address [facility] Co de Phone Number [facility] [address] [place] [address], [facility] [phone] * (ABNORMAL) CBC W AUTO DIFFERENTIAL (03/22/2024 6:58 AM [facility]) [facility] WBC 0.5(LL) 4.0 - 10.7 x10E9/L 03/22/2024 9:05 AM [facility] RBC Count 3.83(L) 4.30 - 5.80 x10E12/L 03/22/2024 9:05 AM [facility] Hemoglobin 10.9(L) 13.3 - 17.5 g/dL 03/22/2024 9:05 AM [facility] Hematocrit 33.2(L) 38.7 - 51.1 % 03/22/2024 9:05 AM [facility] MCV 86.7 80.0 - 98.0 fL 03/22/2024 9:05 AM [facility] MCH 28.5 26.7 - 33.6 pg 03/22/2024 9:05 AM [facility] MCHC 32.8 31.7 - 36.3 g/dL 03/22/2024 9:05 AM [facility] RDW-CV 17.2(H) 11.3 - 14.8 % 03/22/2024 9:05 AM [facility] Platelet Count 66(L) 150 - 420 x10E9/L 03/22/2024 9:05 AM [facility] Preliminary Absolute Neutrophil 0.05(L) 1.60 - 7.50 x10E9/L 03/22/2024 9:05 AM [facility] Blood BLOOD SPECIMEN / Unknown Lab Venipuncture / Unknown 03/22/2024 6:58 AM [employer] [facility] [employer] 03/22/2024 7:27 AM [employer] Ghanshyam Dewey PA-C LAB - HEMATOLOGY ORD ERABLES Performing Organization Address City/[facility]/ZIP Co de Phone Number [address] [address], [facility] [phone] * MAGNESIUM BLOOD (03/21/2024 3:47 AM [facility] [employer]) Magnesium 1.8 1.6 - 2.6 mg/dL 03/21/2024 5:35 AM [facility] Blood BLOOD SPECIMEN / Unknown Venipuncture / Unknown 03/21/2024 3:47 AM [facility] [employer] 03/21/2024 4:32 AM [employer] Josh Momin MD LAB - CHEMISTRY ORD ERABLES [address] [address], [facility] [phone] * URIC ACID BLOOD (03/21/2024 3:47 AM [facility] [facility] [employer]) Uric Acid 6.7 3.5 - 7.2 mg/dL 03/21/2024 5:35 AM [facility] Blood BLOOD SPECIMEN / Unknown Venipuncture / Unknown 03/21/2024 3:47 AM [facility] [facility] [employer] 03/21/2024 4:32 AM [employer] Josh Momin MD LAB - CHEMISTRY ORD ERABLES [address] [address], [facility] [phone] * PHOSPHORUS BLOOD (03/21/2024 3:47 AM [facility] [facility] [employer]) Phosphorus 2.9 2.8 - 5.1 mg/dL 03/21/2024 5:35 AM [facility] Blood BLOOD SPECIMEN / Unknown Venipuncture / Unknown 03/21/2024 3:47 AM [employer] [facility] [employer] 03/21/2024 4:32 AM [employer] Josh Momin MD LAB - CHEMISTRY ORD ERABLES Performing Organization Address [facility]/ZIP Co de Phone Number [address] [address], [facility] [phone] * (ABNORMAL) COMPREHENSIVE METABOLIC PANEL (03/21/2024 3:47 AM [facility]) BUN 15 7 - 26 mg/dL 03/21/2024 5:35 AM [facility] Creatinine 1.27(H) 0.71 - 1.16 mg/dL 03/21/2024 5:35 AM [facility] Sodium 141 136 - 145 mmol/L 03/21/2024 5:35 AM [facility] Potassium 3.8 3.5 - 4.5 mmol/L 03/21/2024 5:35 AM [facility] Chloride 110(H) 98 - 107 mmol/L 03/21/2024 5:35 AM [facility] CO2 24 22 - 29 mmol/L 03/21/2024 5:35 AM [facility] Glucose 115(H) 70 - 99 mg/dL 03/21/2024 5:35 AM [facility] Calcium 8.6 8.4 - 10.2 mg/dL 03/21/2024 5:35 AM [facility] Protein Total 5.9(L) 6.0 - 8.3 g/dL 03/21/2024 5:35 AM [facility] Albumin 3.1(L) 3.4 - 5.0 g/dL 03/21/2024 5:35 AM [facility] Bilirubin Total 0.9 0.2 - 1.2 mg/dL 03/21/2024 5:35 AM [facility] Alkaline Phosphatase 100 40 - 150 U/L 03/21/2024 5:35 AM [facility] ALT 18 5 - 55 U/L 03/21/2024 5:35 AM [facility] AST 14 5 - 34 U/L 03/21/2024 5:35 AM [facility] Anion Gap 7 6 - 16 03/21/2024 5:35 AM [facility] BUN/Creatinine Ratio 12 7 - 23 03/21/2024 5:35 AM [facility] Osmolality Calculated 294 275 - 295 mOsm/kg 03/21/2024 5:35 AM [facility] Albumin/Globulin Ratio 1.1 1.1 - 2.3 03/21/2024 5:35 AM [facility] eGFR by CKD-EPI 57(L) >=90 mL/min/1.7 3 m2 03/21/2024 5:35 AM [facility] Blood BLOOD SPECIMEN / Unknown Venipuncture / Unknown 03/21/2024 3:47 AM [employer] [facility] [employer] 03/21/2024 4:32 AM [employer] Josh Momin MD LAB - CHEMISTRY ORD ERABLES [facility] [address] [place] [address], [facility] [phone] * LDH BLOOD (03/21/2024 3:47 AM [employer]) LDH Total 144 125 - 243 Units/L 03/21/2024 5:35 AM [facility] Blood BLOOD SPECIMEN / Unknown Venipuncture / Unknown 03/21/2024 3:47 AM [employer] [facility] [facility] [employer] 03/21/2024 4:32 AM [employer] Josh Momin MD LAB - CHEMISTRY ORD ERABLES [facility] [address] [place] [address], [facility] [phone] * PTT [facility] (03/21/2024 3:47 AM [employer]) APTT 34.0 23.0 - 38.4 Seconds 03/21/2024 4:59 AM [facility] Comment:Suggested therapeuti c range for full dose I.V. unfractionated heparin therapy for venous 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 is 71 to 109 seconds. Blood BLOOD SPECIMEN / Unknown Venipuncture / Unknown 03/21/2024 3:47 AM [employer] [facility] [facility] [employer] 03/21/2024 4:31 AM [employer] [facility] Ghanshyam Dewey PA-C LAB - COAGULATION OR DERABLES Performing Organization Address [facility] Co de Phone Number [address] [address], [facility] [phone] * (ABNORMAL) PT-INR [facility] (03/21/2024 3:47 AM [employer]) Pathologist [facility] PT 17.4(H) 12.1 - 14.8 Seconds 03/21/2024 4:59 AM [employer] INR 1.5 See Comment 03/21/2024 4:59 AM [employer] [employer] Comment:The suggested therap eutic range for standard coumadin (warfarin) therapy is an INR of 2.0-3.0. For high-risk patients (Mechanical Mitral Valve Prosthesis, etc.), the suggested prophylactic therapeutic range is an INR of 2.5-3.5. Blood BLOOD SPECIMEN / Unknown Venipuncture / Unknown 03/21/2024 3:47 AM [facility] [employer] 03/21/2024 4:31 AM [employer] [facility] [employer] Ghanshyam Dewey PA-C LAB - COAGULATION OR DERABLES Performing Organization Address [facility]/ZIP Co de Phone Number [facility] [address] [place] [address], [place] [phone] * (ABNORMAL) CBC W AUTO DIFFERENTIAL (03/21/2024 3:47 AM [facility]) WBC 0.3(LL) 4.0 - 10.7 x10E9/L 03/21/2024 4:52 AM [facility] Comment:No differential repo rted. WBC count <0.5 RBC Count 3.81(L) 4.30 - 5.80 x10E12/L 03/21/2024 4:52 AM [facility] Hemoglobin 10.8(L) 13.3 - 17.5 g/dL 03/21/2024 4:52 AM [facility] Hematocrit 32.7(L) 38.7 - 51.1 % 03/21/2024 4:52 AM [facility] MCV 85.8 80.0 - 98.0 fL 03/21/2024 4:52 AM [facility] MCH 28.3 26.7 - 33.6 pg 03/21/2024 4:52 AM [facility] MCHC 33.0 31.7 - 36.3 g/dL 03/21/2024 4:52 AM [facility] RDW-CV 17.4(H) 11.3 - 14.8 % 03/21/2024 4:52 AM [facility] Platelet Count 75(L) 150 - 420 x10E9/L 03/21/2024 4:52 AM [facility] MPV 12.5(H) 7.8 - 11.4 fL 03/21/2024 4:52 AM [facility] Preliminary Absolute Neutrophil 03/21/2024 4:52 AM [facility] Blood BLOOD SPECIMEN / Unknown Venipuncture / Unknown 03/21/2024 3:47 AM [facility] 03/21/2024 4:32 AM [employer] [facility] [employer] Ghanshyam Dewey PA-C LAB - HEMATOLOGY ORD ERABLES [facility] [address] [place] [address], [facility] [phone] * MAGNESIUM BLOOD (03/20/2024 4:07 PM [facility] [facility] [employer]) Pathologist [facility] Magnesium 2.0 1.6 - 2.6 mg/dL 03/20/2024 5:38 PM [employer] Blood BLOOD SPECIMEN / Unknown Lab Venipuncture / Unknown 03/20/2024 4:07 PM [facility] [employer] 03/20/2024 4:47 PM [employer] Josh Momin MD LAB - CHEMISTRY ORD ERABLES Performing Organization Address City/[facility]/ZIP Co de Phone Number [address] [address], [facility] [phone] * (ABNORMAL) URIC ACID BLOOD (03/20/2024 4:07 PM [facility] [facility] [employer]) Uric Acid 7.3(H) 3.5 - 7.2 mg/dL 03/20/2024 10:10 PM [employer] Blood BLOOD SPECIMEN / Unknown Lab Venipuncture / Unknown 03/20/2024 4:07 PM [employer] [facility] [employer] 03/20/2024 4:47 PM [employer] Josh Momin MD LAB - CHEMISTRY ORD ERABLES Performing Organization Address City/[facility]/ZIP Co de Phone Number [address] [address], [place] [phone] * PHOSPHORUS BLOOD (03/20/2024 4:07 PM [facility] [employer]) Phosphorus 3.5 2.8 - 5.1 mg/dL 03/20/2024 5:38 PM [employer] Blood BLOOD SPECIMEN / Unknown Lab Venipuncture / Unknown 03/20/2024 4:07 PM [employer] [facility] [employer] 03/20/2024 4:47 PM [employer] Josh Momin MD LAB - CHEMISTRY ORD ERABLES [address] [address], [place] [phone] * (ABNORMAL) COMPREHENSIVE METABOLIC PANEL (03/20/2024 4:07 PM [facility]) BUN 16 7 - 26 mg/dL 03/20/2024 5:38 PM [employer] Creatinine 1.32(H) 0.71 - 1.16 mg/dL 03/20/2024 5:38 PM [facility] Sodium 143 136 - 145 mmol/L 03/20/2024 5:38 PM [facility] Potassium 4.1 3.5 - 4.5 mmol/L 03/20/2024 5:38 PM [facility] Chloride 110(H) 98 - 107 mmol/L 03/20/2024 5:38 PM [facility] CO2 23 22 - 29 mmol/L 03/20/2024 5:38 PM [facility] Glucose 112(H) 70 - 99 mg/dL 03/20/2024 5:38 PM [facility] Calcium 8.9 8.4 - 10.2 mg/dL 03/20/2024 5:38 PM [facility] Protein Total 6.5 6.0 - 8.3 g/dL 03/20/2024 5:38 PM [facility] Albumin 3.3(L) 3.4 - 5.0 g/dL 03/20/2024 5:38 PM [facility] Bilirubin Total 0.7 0.2 - 1.2 mg/dL 03/20/2024 5:38 PM [facility] Alkaline Phosphatase 110 40 - 150 U/L 03/20/2024 5:38 PM [facility] ALT 18 5 - 55 U/L 03/20/2024 5:38 PM [facility] AST 15 5 - 34 U/L 03/20/2024 5:38 PM [facility] Anion Gap 10 6 - 16 03/20/2024 5:38 PM [facility] BUN/Creatinine Ratio 12 7 - 23 03/20/2024 5:38 PM [facility] Osmolality Calculated 298(H) 275 - 295 mOsm/kg 03/20/2024 5:38 PM [facility] Albumin/Globulin Ratio 1.0(L) 1.1 - 2.3 03/20/2024 5:38 PM [facility] eGFR by CKD-EPI 55(L) >=90 mL/min/1.7 3 m2 03/20/2024 5:38 PM [facility] Blood BLOOD SPECIMEN / Unknown Lab Venipuncture / Unknown 03/20/2024 4:07 PM [facility] 03/20/2024 4:47 PM [employer] Josh Momin MD LAB - CHEMISTRY ORD ERABLES [address] [address], [facility] [phone] * LDH BLOOD (03/20/2024 4:07 PM [facility] [employer]) LDH Total 139 125 - 243 Units/L 03/20/2024 5:38 PM [employer] [facility] [employer] Blood BLOOD SPECIMEN / Unknown Lab Venipuncture / Unknown 03/20/2024 4:07 PM [facility] 03/20/2024 4:47 PM [employer] Josh Momin MD LAB - CHEMISTRY ORD ERABLES Performing Organization Address City/[facility]/ZIP Co de Phone Number [address] [address], [facility] [phone] * (ABNORMAL) DIFFERENTIAL MANUAL (03/20/2024 6:28 AM [facility]) Neutrophil % 22(L) 41 - 74 % 03/20/2024 10:01 AM [facility] Lymphocyte % 78(H) 17 - 47 % 03/20/2024 10:01 AM [facility] Neutrophil Absolute 0.15(L) 1.60 - 7.50 x10E9/L 03/20/2024 10:01 AM [facility] Lymphocyte Absolute 0.55(L) 1.00 - 4.40 x10E9/L 03/20/2024 10:01 AM [facility] RBC Morphology REVIEWED 03/20/2024 10:01 AM [facility] Schistocytes FEW(A) (none) 03/20/2024 10:01 AM [facility] Blood BLOOD SPECIMEN / Unknown Venipuncture / Unknown 03/20/2024 6:28 AM [facility] 03/20/2024 7:28 AM [facility] [employer] Ghanshyam Dewey PA-C LAB - HEMATOLOGY ORD ERABLES Performing Organization Address City/[facility]/ZIP Co de Phone Number [facility] [address] [place] [address], [place] [phone] * LDH BLOOD (03/20/2024 6:28 AM [facility] [employer]) Pathologist [facility] LDH Total 133 125 - 243 Units/L 03/20/2024 7:58 AM [employer] [facility] [facility] Blood BLOOD SPECIMEN / Unknown Venipuncture / Unknown 03/20/2024 6:28 AM [facility] 03/20/2024 7:28 AM [facility] [employer] Ghanshyam Dewey PA-C LAB - CHEMISTRY ORDE RABLES Performing Organization Address City/[facility]/ZIP Co de Phone Number [facility] [address] [place] [address], [place] [phone] * PTT [facility] (03/20/2024 6:28 AM [employer] [employer]) [facility] APTT 33.4 23.0 - 38.4 Seconds 03/20/2024 7:37 AM [facility] Comment:Suggested therapeuti c range for full dose I.V. unfractionated heparin therapy for venous 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 is 71 to 109 seconds. Blood BLOOD SPECIMEN / Unknown Venipuncture / Unknown 03/20/2024 6:28 AM [facility] 03/20/2024 6:33 AM [facility] Ghanshyam Dewey PA-C LAB - COAGULATION OR DERABLES Performing Organization Address City/[facility]/ZIP Co de Phone Number [facility] [address] [place] [address], [place] [phone] * (ABNORMAL) PT-INR [facility] (03/20/2024 6:28 AM [employer]) Pathologist [facility] PT 17.1(H) 12.1 - 14.8 Seconds 03/20/2024 7:37 AM [facility] INR 1.4 See Comment 03/20/2024 7:37 AM [facility] Comment:The suggested therap eutic range for standard coumadin (warfarin) therapy is an INR of 2.0-3.0. For high-risk patients (Mechanical Mitral Valve Prosthesis, etc.), the suggested prophylactic therapeutic range is an INR of 2.5-3.5. Blood BLOOD SPECIMEN / Unknown Venipuncture / Unknown 03/20/2024 6:28 AM [employer] 03/20/2024 6:33 AM [employer] Ghanshyam Dewey PA-C LAB - COAGULATION OR DERABLES Performing Organization Address City/[facility]/ZIP Co de Phone Number [address] [address], [facility] [phone] * (ABNORMAL) URIC ACID BLOOD (03/20/2024 6:28 AM [employer]) Uric Acid 8.1(H) 3.5 - 7.2 mg/dL 03/20/2024 7:58 AM [employer] [facility] Blood BLOOD SPECIMEN / Unknown Venipuncture / Unknown 03/20/2024 6:28 AM [employer] 03/20/2024 7:28 AM [employer] Ghanshyam Dewey PA-C LAB - CHEMISTRY CHELI MONREAL Performing Organization Address [facility] Co de Phone Number [address] [address], [place] [phone] * PHOSPHORUS BLOOD (03/20/2024 6:28 AM [employer]) Phosphorus 3.6 2.8 - 5.1 mg/dL 03/20/2024 7:58 AM [employer] [facility] Blood BLOOD SPECIMEN / Unknown Venipuncture / Unknown 03/20/2024 6:28 AM [employer] 03/20/2024 7:28 AM [employer] Ghanshyam Dewey PA-C LAB - CHEMISTRY CHELI MONREAL Performing Organization Address City/[facility]/ZIP Co de Phone Number [address] [address], [place] [phone] * MAGNESIUM BLOOD (03/20/2024 6:28 AM [employer]) Magnesium 2.0 1.6 - 2.6 mg/dL 03/20/2024 7:58 AM [facility] Blood BLOOD SPECIMEN / Unknown Venipuncture / Unknown 03/20/2024 6:28 AM [employer] 03/20/2024 7:28 AM [employer] Ghanshyam Dewey PA-C LAB - CHEMISTRY CHELI MONREAL Performing Organization Address City/[facility]/ZIP Co de Phone Number [facility] [address] [place] [address] [phone] * (ABNORMAL) COMPREHENSIVE METABOLIC PANEL (03/20/2024 6:28 AM [employer]) BUN 17 7 - 26 mg/dL 03/20/2024 7:58 AM [facility] Creatinine 1.34(H) 0.71 - 1.16 mg/dL 03/20/2024 7:58 AM [facility] Sodium 140 136 - 145 mmol/L 03/20/2024 7:58 AM [facility] Potassium 3.9 3.5 - 4.5 mmol/L 03/20/2024 7:58 AM [facility] Chloride 109(H) 98 - 107 mmol/L 03/20/2024 7:58 AM [facility] CO2 23 22 - 29 mmol/L 03/20/2024 7:58 AM [facility] Glucose 111(H) 70 - 99 mg/dL 03/20/2024 7:58 AM [facility] Calcium 8.9 8.4 - 10.2 mg/dL 03/20/2024 7:58 AM [facility] Protein Total 6.1 6.0 - 8.3 g/dL 03/20/2024 7:58 AM [facility] Albumin 3.1(L) 3.4 - 5.0 g/dL 03/20/2024 7:58 AM [facility] Bilirubin Total 0.6 0.2 - 1.2 mg/dL 03/20/2024 7:58 AM [facility] Alkaline Phosphatase 92 40 - 150 U/L 03/20/2024 7:58 AM [facility] ALT 17 5 - 55 U/L 03/20/2024 7:58 AM [facility] AST 14 5 - 34 U/L 03/20/2024 7:58 AM [facility] Anion Gap 8 6 - 16 03/20/2024 7:58 AM [facility] BUN/Creatinine Ratio 13 7 - 23 03/20/2024 7:58 AM [facility] Osmolality Calculated 292 275 - 295 mOsm/kg 03/20/2024 7:58 AM [facility] Albumin/Globulin Ratio 1.0(L) 1.1 - 2.3 03/20/2024 7:58 AM [facility] eGFR by CKD-EPI 54(L) >=90 mL/min/1.7 3 m2 03/20/2024 7:58 AM [facility] Blood BLOOD SPECIMEN / Unknown Venipuncture / Unknown 03/20/2024 6:28 AM [employer] 03/20/2024 7:28 AM [facility] Ghanshyam Dewey PA-C LAB - CHEMISTRY ORDE [facility] Organization Address City/State/ZIP Co de Phone Number [facility] [address] [place] [phone] [phone] * (ABNORMAL) CBC W AUTO DIFFERENTIAL (03/20/2024 6:28 AM [facility]) WBC 0.7(LL) 4.0 - 10.7 x10E9/L 03/20/2024 10:02 AM [facility] RBC Count 4.01(L) 4.30 - 5.80 x10E12/L 03/20/2024 10:02 AM [facility] Hemoglobin 11.6(L) 13.3 - 17.5 g/dL 03/20/2024 10:02 AM [facility] Hematocrit 34.4(L) 38.7 - 51.1 % 03/20/2024 10:02 AM [facility] MCV 85.8 80.0 - 98.0 fL 03/20/2024 10:02 AM [facility] MCH 28.9 26.7 - 33.6 pg 03/20/2024 10:02 AM [facility] MCHC 33.7 31.7 - 36.3 g/dL 03/20/2024 10:02 AM [facility] RDW-CV 17.2(H) 11.3 - 14.8 % 03/20/2024 10:02 AM [facility] Platelet Count 82(L) 150 - 420 x10E9/L 03/20/2024 10:02 AM [facility] MPV 12.7(H) 7.8 - 11.4 fL 03/20/2024 10:02 AM [facility] Preliminary Absolute Neutrophil 0.11(L) 1.60 - 7.50 x10E9/L 03/20/2024 10:02 AM [facility] Blood BLOOD SPECIMEN / Unknown Venipuncture / Unknown 03/20/2024 6:28 AM [employer] 03/20/2024 7:28 AM [facility] Ghanshyam Dewey PA-C LAB - HEMATOLOGY ORD ERABLES Performing Organization Address [facility] Co de Phone Number [address] [phone] [phone] * (ABNORMAL) DIFFERENTIAL MANUAL (03/19/2024 6:23 AM [facility] [employer]) Neutrophil % 26(L) 41 - 74 % 03/19/2024 7:46 AM [facility] Lymphocyte % 65(H) 17 - 47 % 03/19/2024 7:46 AM [facility] Monocyte % 4 3 - 11 % 03/19/2024 7:46 AM [facility] Eosinophil % 4 0 - 7 % 03/19/2024 7:46 AM [facility] Blasts % 1(H) 0% % 03/19/2024 7:46 AM [facility] Neutrophil Absolute 0.21(L) 1.60 - 7.50 x10E9/L 03/19/2024 7:46 AM [facility] Lymphocyte Absolute 0.52(L) 1.00 - 4.40 x10E9/L 03/19/2024 7:46 AM [facility] Monocyte Absolute 0.03(L) 0.15 - 1.00 x10E9/L 03/19/2024 7:46 AM [facility] Eosinophil Absolute 0.03 0.00 - 0.60 x10E9/L 03/19/2024 7:46 AM [facility] RBC Morphology REVIEWED 03/19/2024 7:46 AM [facility] Microcytosis MODERATE(A) (none) 03/19/2024 7:46 AM [facility] Blood BLOOD SPECIMEN / Unknown Venipuncture / Unknown 03/19/2024 6:23 AM [employer] 03/19/2024 6:42 AM [employer] Ghanshyam Dewey PA-C LAB - HEMATOLOGY ORD ERABLES [facility] [address] [place] [address], [facility] [phone] * (ABNORMAL) LDH BLOOD (03/19/2024 6:23 AM [employer]) LDH Total 122(L) 125 - 243 Units/L 03/19/2024 7:10 AM [facility] Blood BLOOD SPECIMEN / Unknown Venipuncture / Unknown 03/19/2024 6:23 AM [employer] 03/19/2024 6:42 AM [employer] Ghanshyam Dewey PA-C LAB - CHEMISTRY ORDE [facility] [address] [place] [phone], [place] [phone] * PTT [facility] (03/19/2024 6:23 AM [employer]) APTT 35.8 23.0 - 38.4 Seconds 03/19/2024 7:05 AM [facility] Comment:Suggested therapeuti c range for full dose I.V. unfractionated heparin therapy for venous 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 is 71 to 109 seconds. Blood BLOOD SPECIMEN / Unknown Venipuncture / Unknown 03/19/2024 6:23 AM [employer] 03/19/2024 6:36 AM [employer] Ghanshyam Dewey PA-C LAB - COAGULATION OR DERABLES Performing Organization Address City/[facility]/ZIP Co de Phone Number [facility] [address] [place] [address], [facility] [phone] * (ABNORMAL) PT-INR [facility] (03/19/2024 6:23 AM [employer]) PT 17.7(H) 12.1 - 14.8 Seconds 03/19/2024 7:05 AM [facility] INR 1.5 See Comment 03/19/2024 7:05 AM [facility] Comment:The suggested therap eutic range for standard coumadin (warfarin) therapy is an INR of 2.0-3.0. For high-risk patients (Mechanical Mitral Valve Prosthesis, etc.), the suggested prophylactic therapeutic range is an INR of 2.5-3.5. Blood BLOOD SPECIMEN / Unknown Venipuncture / Unknown 03/19/2024 6:23 AM [employer] 03/19/2024 6:36 AM [employer] Ghanshyam Dewey PA-C LAB - COAGULATION OR DERABLES Performing Organization Address [facility]/ZIP Co de Phone Number [facility] [address] [place] [address], [facility] [phone] * URIC ACID BLOOD (03/19/2024 6:23 AM [employer]) Uric Acid 5.7 3.5 - 7.2 mg/dL 03/19/2024 7:10 AM [employer] [facility] Blood BLOOD SPECIMEN / Unknown Venipuncture / Unknown 03/19/2024 6:23 AM [employer] 03/19/2024 6:42 AM [employer] Ghanshyam Dewey PA-C LAB - CHEMISTRY ORDE [facility] [address] [place] [address], [facility] [phone] * PHOSPHORUS BLOOD (03/19/2024 6:23 AM [employer]) Phosphorus 3.1 2.8 - 5.1 mg/dL 03/19/2024 7:10 AM [facility] Blood BLOOD SPECIMEN / Unknown Venipuncture / Unknown 03/19/2024 6:23 AM [employer] 03/19/2024 6:42 AM [employer] Ghanshyam Dewey PA-C LAB - CHEMISTRY [facility] [address] [address], [facility] [phone] * MAGNESIUM BLOOD (03/19/2024 6:23 AM [employer]) Magnesium 2.0 1.6 - 2.6 mg/dL 03/19/2024 7:10 AM [facility] Blood BLOOD SPECIMEN / Unknown Venipuncture / Unknown 03/19/2024 6:23 AM [employer] 03/19/2024 6:42 AM [employer] Ghanshyam Dewey PA-C LAB - CHEMISTRY [facility] [address] [address], [facility] [phone] * (ABNORMAL) COMPREHENSIVE METABOLIC PANEL (03/19/2024 6:23 AM [employer]) BUN 12 7 - 26 mg/dL 03/19/2024 7:10 AM [facility] Creatinine 1.25(H) 0.71 - 1.16 mg/dL 03/19/2024 7:10 AM [facility] Sodium 141 136 - 145 mmol/L 03/19/2024 7:10 AM [facility] Potassium 3.9 3.5 - 4.5 mmol/L 03/19/2024 7:10 AM [facility] Chloride 110(H) 98 - 107 mmol/L 03/19/2024 7:10 AM [facility] CO2 25 22 - 29 mmol/L 03/19/2024 7:10 AM [facility] Glucose 108(H) 70 - 99 mg/dL 03/19/2024 7:10 AM [facility] Calcium 9.2 8.4 - 10.2 mg/dL 03/19/2024 7:10 AM [facility] Protein Total 6.2 6.0 - 8.3 g/dL 03/19/2024 7:10 AM [facility] Albumin 3.2(L) 3.4 - 5.0 g/dL 03/19/2024 7:10 AM [facility] Bilirubin Total 0.8 0.2 - 1.2 mg/dL 03/19/2024 7:10 AM [facility] Alkaline Phosphatase 104 40 - 150 U/L 03/19/2024 7:10 AM [facility] ALT 16 5 - 55 U/L 03/19/2024 7:10 AM [facility] AST 12 5 - 34 U/L 03/19/2024 7:10 AM [facility] Anion Gap 6 6 - 16 03/19/2024 7:10 AM [facility] BUN/Creatinine Ratio 10 7 - 23 03/19/2024 7:10 AM [facility] Osmolality Calculated 292 275 - 295 mOsm/kg 03/19/2024 7:10 AM [facility] Albumin/Globulin Ratio 1.1 1.1 - 2.3 03/19/2024 7:10 AM [facility] eGFR by CKD-EPI 59(L) >=90 mL/min/1.7 3 m2 03/19/2024 7:10 AM [facility] Blood BLOOD SPECIMEN / Unknown Venipuncture / Unknown 03/19/2024 6:23 AM [employer] 03/19/2024 6:42 AM [facility] Ghanshyam Dewey PA-C LAB - CHEMISTRY ORDE [facility] [address] [place] [address], [facility] [phone] * (ABNORMAL) CBC W AUTO DIFFERENTIAL (03/19/2024 6:23 AM [facility]) WBC 0.8(LL) 4.0 - 10.7 x10E9/L 03/19/2024 7:48 AM [facility] RBC Count 4.05(L) 4.30 - 5.80 x10E12/L 03/19/2024 7:48 AM [facility] Hemoglobin 11.7(L) 13.3 - 17.5 g/dL 03/19/2024 7:48 AM [facility] Hematocrit 34.6(L) 38.7 - 51.1 % 03/19/2024 7:48 AM [facility] MCV 85.4 80.0 - 98.0 fL 03/19/2024 7:48 AM [facility] MCH 28.9 26.7 - 33.6 pg 03/19/2024 7:48 AM [facility] MCHC 33.8 31.7 - 36.3 g/dL 03/19/2024 7:48 AM [facility] RDW-CV 17.0(H) 11.3 - 14.8 % 03/19/2024 7:48 AM [facility] Platelet Count 87(L) 150 - 420 x10E9/L 03/19/2024 7:48 AM [facility] MPV 12.8(H) 7.8 - 11.4 fL 03/19/2024 7:48 AM [facility] Preliminary Absolute Neutrophil 0.13(L) 1.60 - 7.50 x10E9/L 03/19/2024 7:48 AM [facility] Blood BLOOD SPECIMEN / Unknown Venipuncture / Unknown 03/19/2024 6:23 AM [employer] 03/19/2024 6:42 AM [facility] Ghanshyam Dewey PA-C LAB - HEMATOLOGY ORD ERABLES [facility] [address] [place] [address], [facility] [phone] * EKG 12-LEAD (03/18/2024 1:48 PM [employer]) Ventricular Rate 75 BPM [facility] MUSE Atrial Rate 75 BPM [facility] MUSE P-R Interval 122 ms [facility] MUSE QRS Duration ms 118 ms [facility] MUSE Q-T Interval ms 410 ms [facility] MUSE QTC Calculation (Bezet) 457 ms [facility] MUSE Calculated P Midway 42 degrees [facility] MUSE Calculated R Midway 36 degrees [facility] MUSE Calculated T Midway -134 degrees [facility] MUSE Interpretation EKG NORMAL SINUS RHYTHM WITH SINUS ARRHYTHMIA INCOMPLETE RIGHT BUNDLE BRANCH BLOCK ST & MARKED T WAVE ABNORMALITY, CONSIDER ANTEROLATERAL ISCHEMIA ABNORMAL ECG NO PREVIOUS ECGS AVAILABLE Confirmed by ROVERTO BELTRE MD ([id number]) on 03/22/2024 12:50:34 PM [facility] MUSE 03/18/2024 1:48 PM [employer] 03/22/2024 12:50 PM [employer] Caity Ortiz DRUM 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 Ghanshyam Dewey PA-C LAB - PATHOLOGY/CYTO LOGY ORDERABLES [facility] [address] [place] [address], [facility] [phone] * (ABNORMAL) DIFFERENTIAL MANUAL (03/18/2024 8:33 AM [facility] [employer] [facility] [employer]) Neutrophil % 24(L) 41 - 74 % 03/18/2024 9:49 AM [facility] Lymphocyte % 71(H) 17 - 47 % 03/18/2024 9:49 AM [facility] Eosinophil % 3 0 - 7 % 03/18/2024 9:49 AM [facility] Basophil % 1 0 - 2 % 03/18/2024 9:49 AM [facility] Other Cells % 1(H) 0% % 03/18/2024 9:49 AM [facility] Comment:Blast-like Neutrophil Absolute 0.22(L) 1.60 - 7.50 x10E9/L 03/18/2024 9:49 AM [facility] Lymphocyte Absolute 0.64(L) 1.00 - 4.40 x10E9/L 03/18/2024 9:49 AM [facility] Eosinophil Absolute 0.03 0.00 - 0.60 x10E9/L 03/18/2024 9:49 AM [facility] Basophil Absolute 0.01 0.00 - 0.13 x10E9/L 03/18/2024 9:49 AM [facility] RBC Morphology REVIEWED 03/18/2024 9:49 AM [facility] Microcytosis MODERATE(A) (none) 03/18/2024 9:49 AM [facility] Ovalocytes MODERATE(A) (none) 03/18/2024 9:49 AM [facility] Schistocytes FEW(A) (none) 03/18/2024 9:49 AM [facility] Giant Platelets PRESENT(A) (none) 9:49 AM [facility] Large Platelets PRESENT(A) (none) 9:49 AM [facility] Blood BLOOD SPECIMEN / Unknown Lab Venipuncture / Unknown 03/18/2024 8:33 AM [employer] 03/18/2024 8:46 AM [employer] [facility] - 03/18/2024 9:49 AM [employer] A potentially abnormal cell population has been identified. A pathologist review has been ordered. Additional testing may be required to rule out malignancy and/or further classify this cell population. Ghanshyam Dewey PA-C LAB - HEMATOLOGY ORD ERABLES [facility] [address] [place] [address], [facility] [phone] * LDH BLOOD (03/18/2024 8:33 AM [employer]) LDH Total 146 125 - 243 Units/L 03/18/2024 9:43 AM [facility] Blood BLOOD SPECIMEN / Unknown Lab Venipuncture / Unknown 03/18/2024 8:33 AM [employer] 03/18/2024 8:47 AM [employer] Ghanshyam Dewey PA-C LAB - CHEMISTRY [facility] Performing Organization Address [facility] Co de Phone Number [address] [address], [facility] [phone] * PTT [facility] (03/18/2024 8:33 AM [employer]) APTT 31.1 23.0 - 38.4 Seconds 03/18/2024 9:08 AM [facility] Comment:Suggested therapeuti c range for full dose I.V. unfractionated heparin therapy for venous 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 is 71 to 109 seconds. Blood BLOOD SPECIMEN / Unknown Lab Venipuncture / Unknown 03/18/2024 8:33 AM [employer] 03/18/2024 8:35 AM [employer] Ghanshyam Dewey PA-C LAB - COAGULATION OR DERABLES Performing Organization Address [facility] Co de Phone Number [address] [address], [facility] [phone] * (ABNORMAL) PT-INR [facility] (03/18/2024 8:33 AM [employer]) PT 15.8(H) 12.1 - 14.8 Seconds 03/18/2024 9:08 AM [facility] INR 1.3 See Comment 03/18/2024 9:08 AM [facility] Comment:The suggested therap eutic range for standard coumadin (warfarin) therapy is an INR of 2.0-3.0. For high-risk patients (Mechanical Mitral Valve Prosthesis, etc.), the suggested prophylactic therapeutic range is an INR of 2.5-3.5. Blood BLOOD SPECIMEN / Unknown Lab Venipuncture / Unknown 03/18/2024 8:33 AM [employer] 03/18/2024 8:35 AM [employer] Ghanshyam Dewey PA-C LAB - COAGULATION OR DERABLES Performing Organization Address [facility] Co de Phone Number [address] [address], [place] [phone] * URIC ACID BLOOD (03/18/2024 8:33 AM [employer]) Uric Acid 5.9 3.5 - 7.2 mg/dL 03/18/2024 9:43 AM [employer] [facility] Blood BLOOD SPECIMEN / Unknown Lab Venipuncture / Unknown 03/18/2024 8:33 AM [employer] 03/18/2024 8:47 AM [employer] Ghanshyam Dewey PA-C LAB - CHEMISTRY [facility] [address] [address], [place] [phone] * PHOSPHORUS BLOOD (03/18/2024 8:33 AM [employer]) Phosphorus 2.9 2.8 - 5.1 mg/dL 03/18/2024 9:43 AM [employer] [facility] Blood BLOOD SPECIMEN / Unknown Lab Venipuncture / Unknown 03/18/2024 8:33 AM [employer] 03/18/2024 8:47 AM [employer] Ghanshyam Dewey PA-C LAB - CHEMISTRY [facility] [address] [address], [place] [phone] * MAGNESIUM BLOOD (03/18/2024 8:33 AM [facility] [employer]) Magnesium 2.0 1.6 - 2.6 mg/dL 03/18/2024 9:43 AM [employer] [facility] Blood BLOOD SPECIMEN / Unknown Lab Venipuncture / Unknown 03/18/2024 8:33 AM [employer] 03/18/2024 8:47 AM [employer] Ghanshyam Dewey PA-C LAB - CHEMISTRY [facility] [address] [address], [place] [phone] * (ABNORMAL) COMPREHENSIVE METABOLIC PANEL (03/18/2024 8:33 AM [facility]) BUN 13 7 - 26 mg/dL 03/18/2024 9:43 AM [facility] Creatinine 1.30(H) 0.71 - 1.16 mg/dL 03/18/2024 9:43 AM [facility] Sodium 143 136 - 145 mmol/L 03/18/2024 9:43 AM [facility] Potassium 4.2 3.5 - 4.5 mmol/L 03/18/2024 9:43 AM [facility] Chloride 110(H) 98 - 107 mmol/L 03/18/2024 9:43 AM [facility] CO2 23 22 - 29 mmol/L 03/18/2024 9:43 AM [facility] Glucose 115(H) 70 - 99 mg/dL 03/18/2024 9:43 AM [facility] Calcium 9.5 8.4 - 10.2 mg/dL 03/18/2024 9:43 AM [facility] Protein Total 6.7 6.0 - 8.3 g/dL 03/18/2024 9:43 AM [facility] Albumin 3.5 3.4 - 5.0 g/dL 03/18/2024 9:43 AM [facility] Bilirubin Total 0.8 0.2 - 1.2 mg/dL 03/18/2024 9:43 AM [facility] Alkaline Phosphatase 118 40 - 150 U/L 03/18/2024 9:43 AM [facility] ALT 17 5 - 55 U/L 03/18/2024 9:43 AM [facility] AST 12 5 - 34 U/L 03/18/2024 9:43 AM [facility] Anion Gap 10 6 - 16 03/18/2024 9:43 AM [facility] BUN/Creatinine Ratio 10 7 - 23 03/18/2024 9:43 AM [facility] Osmolality Calculated 297(H) 275 - 295 mOsm/kg 03/18/2024 9:43 AM [facility] Albumin/Globulin Ratio 1.1 1.1 - 2.3 03/18/2024 9:43 AM [facility] eGFR by CKD-EPI 56(L) >=90 mL/min/1.7 3 m2 03/18/2024 9:43 AM [facility] Blood BLOOD SPECIMEN / Unknown Lab Venipuncture / Unknown 03/18/2024 8:33 AM [employer] 03/18/2024 8:47 AM [employer] Ghanshyam Dewey PA-C LAB - CHEMISTRY CHELI MONREAL [facility] [address] [place] [address], [facility] [phone] * (ABNORMAL) CBC W AUTO DIFFERENTIAL (03/18/2024 8:33 AM [facility]) WBC 0.9(LL) 4.0 - 10.7 x10E9/L 03/18/2024 9:49 AM [facility] RBC Count 4.46 4.30 - 5.80 x10E12/L 03/18/2024 9:49 AM [facility] Hemoglobin 12.7(L) 13.3 - 17.5 g/dL 03/18/2024 9:49 AM [facility] Hematocrit 38.9 38.7 - 51.1 % 03/18/2024 9:49 AM [facility] MCV 87.2 80.0 - 98.0 fL 03/18/2024 9:49 AM [facility] MCH 28.5 26.7 - 33.6 pg 03/18/2024 9:49 AM [facility] MCHC 32.6 31.7 - 36.3 g/dL 03/18/2024 9:49 AM [facility] RDW-CV 17.1(H) 11.3 - 14.8 % 03/18/2024 9:49 AM [facility] Platelet Count 89(L) 150 - 420 x10E9/L 03/18/2024 9:49 AM [facility] MPV 12.2(H) 7.8 - 11.4 fL 03/18/2024 9:49 AM [facility] Preliminary Absolute Neutrophil 0.16(L) 1.60 - 7.50 x10E9/L 03/18/2024 9:49 AM [facility] Blood BLOOD SPECIMEN / Unknown Lab Venipuncture / Unknown 03/18/2024 8:33 AM [employer] 03/18/2024 8:46 AM [employer] Ghanshyam Dewey PA-C LAB - HEMATOLOGY ORD ERABLES [facility] [address] [place] [address], [facility] [phone] * (ABNORMAL) DIFFERENTIAL MANUAL (03/17/2024 5:28 AM [facility] [facility] [employer]) Neutrophil % 20(L) 41 - 74 % 03/17/2024 6:16 AM [facility] Lymphocyte % 70(H) 17 - 47 % 03/17/2024 6:16 AM [facility] Monocyte % 7 3 - 11 % 03/17/2024 6:16 AM [facility] Eosinophil % 1 0 - 7 % 03/17/2024 6:16 AM [facility] Basophil % 2 0 - 2 % 03/17/2024 6:16 AM [facility] Neutrophil Absolute 0.16(L) 1.60 - 7.50 x10E9/L 03/17/2024 6:16 AM [facility] Lymphocyte Absolute 0.56(L) 1.00 - 4.40 x10E9/L 03/17/2024 6:16 AM [facility] Monocyte Absolute 0.06(L) 0.15 - 1.00 x10E9/L 03/17/2024 6:16 AM [facility] Eosinophil Absolute 0.01 0.00 - 0.60 x10E9/L 03/17/2024 6:16 AM [facility] Basophil Absolute 0.02 0.00 - 0.13 x10E9/L 03/17/2024 6:16 AM [facility] RBC Morphology REVIEWED 03/17/2024 6:16 AM [facility] Microcytosis MODERATE(A) (none) 03/17/2024 6:16 AM [facility] Schistocytes FEW(A) (none) 03/17/2024 6:16 AM [facility] Giant Platelets PRESENT(A) (none) 6:16 AM [facility] Large Platelets PRESENT(A) (none) 4 6:16 AM [facility] Blood BLOOD SPECIMEN / Unknown Venipuncture / Unknown 03/17/2024 5:28 AM [facility] 03/17/2024 5:45 AM [facility] Ghanshyam Dewey PA-C LAB - HEMATOLOGY ORD ERABLES Performing Organization Address City/[facility]/ZIP Co de Phone Number [address] [address], [place] [phone] * (ABNORMAL) LDH BLOOD (03/17/2024 5:28 AM [facility] [employer]) LDH Total 122(L) 125 - 243 Units/L 03/17/2024 6:19 AM [facility] Blood BLOOD SPECIMEN / Unknown Venipuncture / Unknown 03/17/2024 5:28 AM [facility] 03/17/2024 5:45 AM [facility] [employer] Ghanshyam Dewey PA-C LAB - CHEMISTRY ORDE RABLES Performing Organization Address [facility] Co de Phone Number [address] [address], [place] [phone] * PTT [facility] (03/17/2024 5:28 AM [employer]) APTT 31.0 23.0 - 38.4 Seconds 03/17/2024 6:12 AM [facility] Comment:Suggested therapeuti c range for full dose I.V. unfractionated heparin therapy for venous 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 is 71 to 109 seconds. Blood BLOOD SPECIMEN / Unknown Venipuncture / Unknown 03/17/2024 5:28 AM [facility] [employer] 03/17/2024 5:45 AM [facility] [employer] Ghanshyam Dewey PA-C LAB - COAGULATION OR DERABLES Performing Organization Address City/[facility]/ZIP Co de Phone Number [address] [address], [facility] [phone] * (ABNORMAL) PT-INR [facility] (03/17/2024 5:28 AM [facility] [employer] [employer]) PT 15.6(H) 12.1 - 14.8 Seconds 03/17/2024 6:12 AM [facility] INR 1.3 See Comment 03/17/2024 6:12 AM [facility] Comment:The suggested therap eutic range for standard coumadin (warfarin) therapy is an INR of 2.0-3.0. For high-risk patients (Mechanical Mitral Valve Prosthesis, etc.), the suggested prophylactic therapeutic range is an INR of 2.5-3.5. Blood BLOOD SPECIMEN / Unknown Venipuncture / Unknown 03/17/2024 5:28 AM [facility] [employer] 03/17/2024 5:45 AM [employer] Ghanshyam Dewey PA-C LAB - COAGULATION OR DERABLES [address] [address], [facility] [phone] * URIC ACID BLOOD (03/17/2024 5:28 AM [facility] [employer]) Uric Acid 5.9 3.5 - 7.2 mg/dL 03/17/2024 6:23 AM [facility] Blood BLOOD SPECIMEN / Unknown Venipuncture / Unknown 03/17/2024 5:28 AM [facility] [employer] 03/17/2024 5:45 AM [employer] Ghanshyam Dewey PA-C LAB - CHEMISTRY ORDE RABLES [address] [address], [facility] [phone] * (ABNORMAL) PHOSPHORUS BLOOD (03/17/2024 5:28 AM [facility]) Phosphorus 2.6(L) 2.8 - 5.1 mg/dL 03/17/2024 6:19 AM [facility] Blood BLOOD SPECIMEN / Unknown Venipuncture / Unknown 03/17/2024 5:28 AM [facility] [employer] 03/17/2024 5:45 AM [employer] Ghanshyam Dewey PA-C LAB - CHEMISTRY [facility] [address] [place] [id number], [facility] [phone] * MAGNESIUM BLOOD (03/17/2024 5:28 AM [facility] [employer]) Magnesium 2.0 1.6 - 2.6 mg/dL 03/17/2024 6:19 AM [facility] Blood BLOOD SPECIMEN / Unknown Venipuncture / Unknown 03/17/2024 5:28 AM [facility] [employer] 03/17/2024 5:45 AM [employer] Ghanshyam Dewey PA-C LAB - CHEMISTRY [facility] Performing Organization Address [facility]/ZIP Co de Phone Number [address] [address], [facility] [phone] * (ABNORMAL) COMPREHENSIVE METABOLIC PANEL (03/17/2024 5:28 AM [facility]) BUN 17 7 - 26 mg/dL 03/17/2024 6:19 AM [facility] Creatinine 1.33(H) 0.71 - 1.16 mg/dL 03/17/2024 6:19 AM [facility] Sodium 140 136 - 145 mmol/L 03/17/2024 6:19 AM [facility] Potassium 4.1 3.5 - 4.5 mmol/L 03/17/2024 6:19 AM [facility] Chloride 109(H) 98 - 107 mmol/L 03/17/2024 6:19 AM [facility] CO2 23 22 - 29 mmol/L 03/17/2024 6:19 AM [facility] Glucose 114(H) 70 - 99 mg/dL 03/17/2024 6:19 AM [facility] Calcium 8.8 8.4 - 10.2 mg/dL 03/17/2024 6:19 AM [facility] Protein Total 6.0 6.0 - 8.3 g/dL 03/17/2024 6:19 AM [facility] Albumin 3.2(L) 3.4 - 5.0 g/dL 03/17/2024 6:19 AM [facility] Bilirubin Total 0.5 0.2 - 1.2 mg/dL 03/17/2024 6:19 AM [facility] Alkaline Phosphatase 112 40 - 150 U/L 03/17/2024 6:19 AM [facility] ALT 17 5 - 55 U/L 03/17/2024 6:19 AM [facility] AST 14 5 - 34 U/L 03/17/2024 6:19 AM [facility] Anion Gap 8 6 - 16 03/17/2024 6:19 AM [facility] BUN/Creatinine Ratio 13 7 - 23 03/17/2024 6:19 AM [facility] Osmolality Calculated 292 275 - 295 mOsm/kg 03/17/2024 6:19 AM [facility] Albumin/Globulin Ratio 1.1 1.1 - 2.3 03/17/2024 6:19 AM [facility] eGFR by CKD-EPI 54(L) >=90 mL/min/1.7 3 m2 03/17/2024 6:19 AM [facility] Blood BLOOD SPECIMEN / Unknown Venipuncture / Unknown 03/17/2024 5:28 AM [facility] 03/17/2024 5:45 AM [facility] Ghanshyam Dewey PA-C LAB - CHEMISTRY [facility]LI [facility] Organization Address City/State/[facility] Co de Phone Number [facility] [address] [place] [phone] [phone] * (ABNORMAL) CBC W AUTO DIFFERENTIAL (03/17/2024 5:28 AM [facility]) WBC 0.8(LL) 4.0 - 10.7 x10E9/L 03/17/2024 6:33 AM [facility] RBC Count 3.89(L) 4.30 - 5.80 x10E12/L 03/17/2024 6:33 AM [facility] Hemoglobin 11.1(L) 13.3 - 17.5 g/dL 03/17/2024 6:33 AM [facility] Hematocrit 33.6(L) 38.7 - 51.1 % 03/17/2024 6:33 AM [facility] MCV 86.4 80.0 - 98.0 fL 03/17/2024 6:33 AM [facility] MCH 28.5 26.7 - 33.6 pg 03/17/2024 6:33 AM [facility] MCHC 33.0 31.7 - 36.3 g/dL 03/17/2024 6:33 AM [facility] RDW-CV 16.9(H) 11.3 - 14.8 % 03/17/2024 6:33 AM [facility] Platelet Count 83(L) 150 - 420 x10E9/L 03/17/2024 6:33 AM [facility] MPV 12.0(H) 7.8 - 11.4 fL 03/17/2024 6:33 AM [facility] Preliminary Absolute Neutrophil 0.14(L) 1.60 - 7.50 x10E9/L 03/17/2024 6:33 AM [facility] Blood BLOOD SPECIMEN / Unknown Venipuncture / Unknown 03/17/2024 5:28 AM [facility] 03/17/2024 5:45 AM [facility] Ghanshyam Dewey PA-C LAB - HEMATOLOGY ORD ERABLES Performing Organization Address City/State/[facility] Co de Phone Number [facility] [address] [place] [address] [phone] * (ABNORMAL) DIFFERENTIAL MANUAL (03/16/2024 12:04 AM [facility]) Neutrophil % 11(L) 41 - 74 % 03/16/2024 1:45 AM [facility] Lymphocyte % 79(H) 17 - 47 % 03/16/2024 1:45 AM [facility] Monocyte % 7 3 - 11 % 03/16/2024 1:45 AM [facility] Eosinophil % 2 0 - 7 % 03/16/2024 1:45 AM [facility] Basophil % 1 0 - 2 % 03/16/2024 1:45 AM [facility] Neutrophil Absolute 0.09(L) 1.60 - 7.50 x10E9/L 03/16/2024 1:45 AM [facility] Lymphocyte Absolute 0.63(L) 1.00 - 4.40 x10E9/L 03/16/2024 1:45 AM [facility] Monocyte Absolute 0.06(L) 0.15 - 1.00 x10E9/L 03/16/2024 1:45 AM [facility] Eosinophil Absolute 0.02 0.00 - 0.60 x10E9/L 03/16/2024 1:45 AM [facility] Basophil Absolute 0.01 0.00 - 0.13 x10E9/L 03/16/2024 1:45 AM [facility] RBC Morphology REVIEWED 03/16/2024 1:45 AM [facility] Dimorphic RBC Population PRESENT(A) (none) 03/16/2024 1:45 AM [facility] Microcytosis MODERATE(A) (none) 03/16/2024 1:45 AM [facility] Giant Platelets PRESENT(A) (none) 1:45 AM [facility] Blood BLOOD SPECIMEN / Unknown Venipuncture / Unknown 03/16/2024 12:04 AM [facility] 03/16/2024 12:37 AM [facility] Ghanshyam Dewey PA-C LAB - HEMATOLOGY ORD ERABLES Performing Organization Address City/State/[facility] Co de Phone Number [facility] [address] [place] [address], [facility] [phone] * LDH BLOOD (03/16/2024 12:04 AM [facility]) LDH Total 157 125 - 243 Units/L 03/16/2024 1:04 AM [facility] Blood BLOOD SPECIMEN / Unknown Venipuncture / Unknown 03/16/2024 12:04 AM [facility] 03/16/2024 12:36 AM [facility] Ghanshyam Dewey PA-C LAB - CHEMISTRY ORDE JOCELIN Performing Organization Address [facility]/ZIP Co de Phone Number [facility] [address] [place] [phone], [facility] [phone] * PTT [facility] (03/16/2024 12:04 AM [facility]) APTT 29.1 23.0 - 38.4 Seconds 03/16/2024 1:05 AM [facility] Comment:Suggested therapeuti c range for full dose I.V. unfractionated heparin therapy for venous 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 is 71 to 109 seconds. Blood BLOOD SPECIMEN / Unknown Venipuncture / Unknown 03/16/2024 12:04 AM [facility] 03/16/2024 12:37 AM [facility] Ghanshyam Dewey PA-C LAB - COAGULATION OR DERABLES Performing Organization Address [facility] Co de Phone Number [address] [address], [facility] [phone] * (ABNORMAL) PT-INR [facility] (03/16/2024 12:04 AM [facility]) PT 15.3(H) 12.1 - 14.8 Seconds 03/16/2024 1:05 AM [facility] INR 1.2 See Comment 03/16/2024 1:05 AM [facility] Comment:The suggested therap eutic range for standard coumadin (warfarin) therapy is an INR of 2.0-3.0. For high-risk patients (Mechanical Mitral Valve Prosthesis, etc.), the suggested prophylactic therapeutic range is an INR of 2.5-3.5. Blood BLOOD SPECIMEN / Unknown Venipuncture / Unknown 03/16/2024 12:04 AM [facility] 03/16/2024 12:37 AM [facility] Ghanshyam Dewey PA-C LAB - COAGULATION OR DERABLES Performing Organization Address [facility]/ZIP Co de Phone Number [address] [address], [facility] [phone] * URIC ACID BLOOD (03/16/2024 12:04 AM [facility]) Uric Acid 6.0 3.5 - 7.2 mg/dL 03/16/2024 1:04 AM [facility] Blood BLOOD SPECIMEN / Unknown Venipuncture / Unknown 03/16/2024 12:04 AM [facility] 03/16/2024 12:36 AM [facility] Ghanshyam Dewey PA-C LAB - CHEMISTRY [facility] [address] [place] [phone], [place] [phone] * PHOSPHORUS BLOOD (03/16/2024 12:04 AM [facility]) Pathologist [facility] Phosphorus 3.5 2.8 - 5.1 mg/dL 03/16/2024 1:04 AM [facility] Blood BLOOD SPECIMEN / Unknown Venipuncture / Unknown 03/16/2024 12:04 AM [facility] 03/16/2024 12:36 AM [facility] Ghanshyam Dewey PA-C LAB - CHEMISTRY CHELI [facility]REAL [address] [address], [place] [phone] * MAGNESIUM BLOOD (03/16/2024 12:04 AM [facility]) Pathologist [facility] Magnesium 2.1 1.6 - 2.6 mg/dL 03/16/2024 1:04 AM [facility] Blood BLOOD SPECIMEN / Unknown Venipuncture / Unknown 03/16/2024 12:04 AM [facility] 03/16/2024 12:36 AM [facility] Ghanshyam Dewey PA-C LAB - CHEMISTRY CHELI [facility]REAL [address] [address], [place] [phone] * (ABNORMAL) COMPREHENSIVE METABOLIC PANEL (03/16/2024 12:04 AM [facility]) BUN 15 7 - 26 mg/dL 03/16/2024 1:04 AM [facility] Creatinine 1.31(H) 0.71 - 1.16 mg/dL 03/16/2024 1:04 AM [facility] Sodium 141 136 - 145 mmol/L 03/16/2024 1:04 AM [facility] Potassium 4.2 3.5 - 4.5 mmol/L 03/16/2024 1:04 AM [facility] Chloride 111(H) 98 - 107 mmol/L 03/16/2024 1:04 AM [facility] CO2 22 22 - 29 mmol/L 03/16/2024 1:04 AM [facility] Glucose 113(H) 70 - 99 mg/dL 03/16/2024 1:04 AM [facility] Calcium 8.9 8.4 - 10.2 mg/dL 03/16/2024 1:04 AM [facility] Protein Total 6.3 6.0 - 8.3 g/dL 03/16/2024 1:04 AM [facility] Albumin 3.4 3.4 - 5.0 g/dL 03/16/2024 1:04 AM [facility] Bilirubin Total 0.5 0.2 - 1.2 mg/dL 03/16/2024 1:04 AM [facility] Alkaline Phosphatase 107 40 - 150 U/L 03/16/2024 1:04 AM [facility] ALT 16 5 - 55 U/L 03/16/2024 1:04 AM [facility] AST 15 5 - 34 U/L 03/16/2024 1:04 AM [facility] Anion Gap 8 6 - 16 03/16/2024 1:04 AM [facility] BUN/Creatinine Ratio 11 7 - 23 03/16/2024 1:04 AM [facility] Osmolality Calculated 294 275 - 295 mOsm/kg 03/16/2024 1:04 AM [facility] Albumin/Globulin Ratio 1.2 1.1 - 2.3 03/16/2024 1:04 AM [facility] eGFR by CKD-EPI 55(L) >=90 mL/min/1.7 3 m2 03/16/2024 1:04 AM [facility] Blood BLOOD SPECIMEN / Unknown Venipuncture / Unknown 03/16/2024 12:04 AM [facility] 03/16/2024 12:36 AM [facility] Ghanshyam Dewey PA-C LAB - CHEMISTRY CHELI [facility]RE[facility] [address] [place] [address], [facility] [phone] * (ABNORMAL) CBC W AUTO DIFFERENTIAL (03/16/2024 12:04 AM [facility]) WBC 0.8(LL) 4.0 - 10.7 x10E9/L 03/16/2024 1:49 AM [facility] RBC Count 4.00(L) 4.30 - 5.80 x10E12/L 03/16/2024 1:49 AM [facility] Hemoglobin 11.3(L) 13.3 - 17.5 g/dL 03/16/2024 1:49 AM [facility] Hematocrit 34.7(L) 38.7 - 51.1 % 03/16/2024 1:49 AM [facility] MCV 86.8 80.0 - 98.0 fL 03/16/2024 1:49 AM [facility] MCH 28.3 26.7 - 33.6 pg 03/16/2024 1:49 AM [facility] MCHC 32.6 31.7 - 36.3 g/dL 03/16/2024 1:49 AM [facility] RDW-CV 16.9(H) 11.3 - 14.8 % 03/16/2024 1:49 AM [facility] Platelet Count 86(L) 150 - 420 x10E9/L 03/16/2024 1:49 AM [facility] MPV 11.6(H) 7.8 - 11.4 fL 03/16/2024 1:49 AM [facility] Preliminary Absolute Neutrophil 0.08(L) 1.60 - 7.50 x10E9/L 03/16/2024 1:49 AM [facility] Blood BLOOD SPECIMEN / Unknown Venipuncture / Unknown 03/16/2024 12:04 AM [facility] 03/16/2024 12:37 AM [facility] Ghanshyam Dewey PA-C LAB - HEMATOLOGY ORD ERABLES [facility] [address] [place] [address], [facility] [phone] * ECHO COMPLETE W CONTRAST (03/15/2024 1:47 PM [facility]) IVSd 2D 1.314 cm SSM CV FUJ [...] Region Laterality Modality Ultrasound 03/15/2024 2:04 PM [facility] Narrative 03/15/2024 5:17 PM [facility] Summary ??* The left ventricle is normal [...] valve regurgitation. Patient Info Name: ? Russ Burciaga Age: ? 78 years : ? 1945 Gender: ? Male Accession #: ? [id number] Ht: ? 72 in Wt: ? 218 lb BSA: ? 2.26 m2 HR: ? 65 bpm BP: ? 103 / ? 55 mmHg Exam Date: ? 03/15/2024 2:04 PM Patient Status: ? I/P Study Site: ? [facility] Primary Location: ? [facility] EStudy Info Technical Quality: ? Adequate [...] ? Ted Soler Fellow: ? Josh Knight Lumber Racker: ? Dhruv Sorto Left Ventricle ??Left ventricular [...] tricuspid valve regurgitation. Patient Info Name: Russ Burciaga Age: 78 years : 1945 Gender: Male Ht: 72 in Wt: 218 lb BSA: 2.26 m2 HR: 65 bpm BP: 103 / 55 mmHg Exam Date: 03/15/2024 2:04 PM Patient Status: I/P Study Site: [facility] Primary Location: [facility] EStud Info Technical Quality: Adequate Exam Type: ECHO [...] Attending Physician: Ted Soler Fellow: Josh Knight Lumber Racker: Dhruv Sorto Left Ventricle Left ventricular systolic [...] PM Ted Soler MD ECHO CUPID * LAB MISC TEST (NOT BLOOD) (03/15/2024 9:05 AM [facility]) Test Name [facility] 03/21/2024 12:06 PM [facility] [employer] REF LAB NON INTERF Test Result See Scanned Report 03/21/2024 12:06 PM [employer] [facility] [employer] REF LAB NON INTERF Comment Ref Lab 03/21/2024 12:06 PM [facility] [employer] REF LAB NON INTERF Other BONE MARROW SPECIMEN / Unknown Collection / Unknown 03/15/2024 9:05 AM [facility] 03/15/2024 9:30 AM [facility] Rodo Perez MD LAB - BODY FLU ID ORDERABLES [facility] REF LAB NON INTERF [address] [place] [address], [facility] [phone] * LAB MISC TEST (NOT BLOOD) (03/15/2024 9:05 AM [facility]) Test Name [facility] 03/21/2024 12:07 PM [employer] [facility] [facility] [employer] REF LAB NON INTERF Test Result See Scanned Report 03/21/2024 12:07 PM [facility] [employer] REF LAB NON INTERF Comment Ref Lab 03/21/2024 12:07 PM [facility] [employer] REF LAB NON INTERF Other BONE MARROW SPECIMEN / Unknown Collection / Unknown 03/15/2024 9:05 AM [facility] 03/15/2024 9:30 AM [facility] Rodo Perez MD LAB - BODY FLU ID ORDERABLES Performing Organization Address City/[facility]/ZIP Co de Phone Number [facility] REF LAB NON INTERF [address] [place] [address], [facility] [phone] * LAB MISC TEST (NOT BLOOD) (03/15/2024 9:05 AM [facility]) Test Name NPM1 03/21/2024 12:07 PM [facility] [employer] REF LAB NON INTERF Test Result See Scanned Report 03/21/2024 12:07 PM [facility] [employer] REF LAB NON INTERF Comment Ref Lab 03/21/2024 12:07 PM [facility] [employer] REF LAB NON INTERF Other BONE MARROW SPECIMEN / Unknown Collection / Unknown 03/15/2024 9:05 AM [facility] 03/15/2024 9:30 AM [facility] [employer] Rodo Perez MD LAB - BODY FLU ID ORDERABLES Performing Organization Address [facility]/ZIP Co de Phone Number [facility] REF LAB NON INTERF [address] [place] [address], [facility] [phone] * MYELOID MALIGNANCIES MUTATION PNL (03/15/2024 9:05 AM [facility]) Interpretation Myeloid Malignancy PNL See Note 03/28/2024 2:06 PM [facility] [employer] Patience ([facility]) Comment: Myeloid Malignancies Mutation Panel NGS Submitted diagnosis or diagnosis under consideration for variant interpretation: Myelodysplastic syndrome, unspecified Note: Prior NGS testing performed on this patient (most recent Code71 accession [id number]) was reviewed in conjunction with the current case to compare molecular variants reported. The previously reported molecular variants DNMT3A, IDH1, and CUX1 are again detected in the current study. In addition, new molecular variants in STAG2, BCOR, JAK2, and CEBPA are now detected. TIER 1: Variants of Known Clinical Significance in Hematologic Malignancies 1. IDH1 c.394C>A, p.Xuc008Tsr ([id number]) VAF: 38.4% IDH1 encodes an enzyme that catalyzes the conversion of isocitrate to alpha-ketoglutarate in the citric acid cycle (23). Somatic mutations of IDH1 are found in 4-12% of patients with myelodysplastic syndrome (MDS).This mutation has been reported in hematologic malignancies (4). The prognostic significance of mutated IDH1 in MDS is uncertain (20) (27) (7) (14) (19) (32). 2. DNMT3A c.2206C>T, p.Kwe770Snj ([id number]) VAF: 42.2% DNMT3A encodes a DNA [...] stem cell transplantation (2). 3. DNMT3A c.2407A>G, p.Ktc184Bcp ([id number]) VAF: 38.8% This mutation has also been reported in hematologic malignancies (4). 4. JAK2 c.1849G>T, p.Znp102Ayf ([id number]) VAF: 14.4% JAK2 encodes a non-receptor protein tyrosine kinase that regulates STAT boil off machine operator cloth factors in response to cytokine receptor signaling (13). JAK2 mutations have been reported in 3-6% of patients with MDS (6) (15) (31). This JAK2 mutation (p.Pji094Hjj) has also been reported in approximately 10-25% of patients with myelodysplastic/myeloproliferative neoplasms (MDS/MPN) (31) (21). This particular JAK2 mutation occurs in the pseudokinase (JH2) domain and leads to activation of the NLOAN-STAT pathway signaling. The prognostic significance of JAK2 mutations in MDS is unclear (6). 5. STAG2 c.1840C>T, p.Zum914* ([id number]) VAF: 31.7% STAG2 encodes a subunit [...] unmutated cohesin genes (29). 6. BCOR c.3649C>T, p.Zbp6363* ([id number]) VAF: 9.6% BCOR encodes a transcriptional corepressor that interacts with BCL-6 and histone deacetylases (HDACs) (5) (12). Mutations in BCOR are seen in 4% of patients with MDS (5) (11). BCOR mutations in MDS are often frameshift and nonsense mutations that result in vnav-ao-uxvlbnzf (5) (11). This mutation is predicted to alter the normal function of BCOR. BCOR mutations are associated with a higher incidence of AML transformation in MDS patients and shorter overall survival in MDS patients (5) (11) (16). 7. BCOR c.635_638del, p.Qsq755Dogai*3 ([id number]) VAF: 6.2% This mutation is also predicted to alter the normal function of BCOR. TIER 2: Variants of Unknown Clinical Significance in Hematologic Malignancies 1. CEBPA c.1074_*9del, p.*359Cysext*58 ([id number]) VAF: 4.7% CEBPA encodes a protein that is a member of the basic region leucine zipper family of boil off machine operator cloth factors (18). Somatic mutations of CEBPA are [...] if any, is uncertain. 2. CUX1 c.3085G>A, p.Zxd2569Zwo ([id number]) VAF: 44.8% This variant has been rarely reported in hematologic malignancies (1) (10), to the best of our knowledge. References 1: Lynnette P, ??Emmanuelle Kim, ??Zhanna CLARK et al, Assessment of Minimal Residual Disease by Next Generation Sequencing in Peripheral Blood as a Complementary Tool for Personalized Transplant Monitoring in Myeloid Neoplasms. J Clin Med 2020. PMID:[id number] 2: Virginie R, ??Juan HERNANDEZ, ??Ulises Kim et al, Somatic mutations predict poor outcome in patients with myelodysplastic syndrome after hematopoietic stem-cell transplantation. J Clin Oncol 2014. PMID:[id number] 3: cBioPortal: http://www.cbioportal.org/ 4: COSMIC: https://cancer.vipin.ac.uk/cosmic 5: Braulio F, ??Yu V, ??Nagata Y et al, BCOR and BCORL1 mutations in myelodysplastic syndromes and related disorders. Blood 2013. PMID:16505792 6: Bill M, ??Jennifer C, ??Víctor Stroud et al, JAK2 Mutations Are Rare and Diverse in Myelodysplastic Syndromes: Case Series and Review of the Literature. Hematol Rep 2022. PMID:[id number] 7: Jahaira CD, ??Kamla E, ??Mary F et al, IDH1 and IDH2 mutations in myelodysplastic syndromes and role in disease progression. Leukemia 2016. PMID:[id number] 8: Fried I, ??Day C, ??Lenin MURPHY et al, Frequency, onset and clinical impact of somatic DNMT3A mutations in therapy-related and secondary acute myeloid leukemia. Haematologica 2012. PMID:[id number] 9: Nuha O, ??Idania D, ??Luanne Payne et al, CEBPA polymorphisms and mutations in patients with acute myeloid leukemia, myelodysplastic syndrome, multiple myeloma and non-Hodgkin's lymphoma. Blood Cells Mol Dis 2008. PMID:[id number] 10: Cassandra Kim, ??Cornell M, ??Alexis Valdivia et al, DNA methylation epitypes highlight underlying developmental and disease pathways in acute myeloid leukemia. Genome Res 2020. PMID:[id number] 11: Ivan V, ??Jenna E, ??Alondra DEMPSEY et al, Whole-exome sequencing identifies somatic mutations of BCOR in acute myeloid leukemia with normal karyotype. Blood 2011. PMID:[id number] 12: Lin KD, ??Yashira W, ??Darcie Estrada et al, BCoR, a novel corepressor involved in BCL-6 repression. Genes Dev 2000. PMID:65599252 13: Fabian SS, ??Jen SJ, ??Amandeep MORRISON et al, Nolan/STAT pathways in cytokine signaling and myeloproliferative disorders: approaches for targeted therapies. Genes Cancer 2010. PMID:[id number] 14: Jose J O, ??Charity Barcenas, ??Grayson Stroud et al, Mutations of IDH1 and IDH2 genes in early and accelerated phases of myelodysplastic syndromes and MDS/myeloproliferative neoplasms. Leukemia 2010. PMID:[id number] 15: Meggendorfer M, ??Hajodilasarahy C, ??Ahsan Talavera et al, Molecular analysis of myelodysplastic syndrome with isolated deletion of the long arm of chromosome 5 reveals a specific spectrum of molecular mutations with prognostic impact: a study on 123 patients and 27 genes. Haematologica 2017. PMID:[id number] 16: Gregoria KH, ??Meliton T, ??Valerie M et al, Spectrum and prognostic relevance of drop hammer pile driver operator gene mutations in acute myeloid leukemia. Blood 2016. PMID:[id number] 17: Nicol T, ??Mel MEANS, ??Milton P et al, Dominant-negative mutations of CEBPA, encoding CCAAT/enhancer binding protein-alpha (C/EBPalpha), in acute myeloid leukemia. Bharti Emely 2001. PMID:[id number] 18: Mel Hughes, Complexity of CEBPA dysregulation in human acute myeloid leukemia. Clin Cancer Res 2009. PMID:84094778 19: Nargis E, ??Scarung M, ??Hugh Stroud et al, Clinical and biological implications of drop hammer pile driver operator mutations in myelodysplastic syndromes. Blood 2013. PMID:[id number] 20: Eileen MURPHY, ??Rajinder CHRISTY, ??Juju OTERO et al, Differential prognostic effect of IDH1 versus IDH2 mutations in myelodysplastic syndromes: a [facility] study of 277 patients. Leukemia 2012. PMID:[id number] 21: Eileen MURPHY, George TL, Genomics of myelodysplastic syndrome/myeloproliferative neoplasm overlap syndromes. Hematology Am Soc Hematol Educ Program 2020. PMID:[id number] 22: Preudhomme C, ??Sagot C, ??Heather N et al, Favorable prognostic significance of CEBPA mutations in patients with de elinor acute myeloid leukemia: a study from the Acute Leukemia [employer] Association (JOSE). Blood 2002. PMID:[id number] 23: Bulmaro BENTON, Josse H, Isocitrate dehydrogenase 1 and 2 mutations in cancer: alterations at a crossroads of cellular metabolism. J Natl Cancer Inst 2010. PMID:[id number] 24: Jose Valdivia, ??Ivan V, ??Yudi U et al, [place] analysis of DNMT3A mutations in hematological malignancies. Leukemia 2013. PMID:[id number] 25: Kim , ??Lisa-Pattyhab O, ??Arnulfo REINOSO et al, The role of mutations in epigenetic regulators in myeloid malignancies. Bharti Rev Cancer 2012. PMID:[id number] 26: Taube F, ??Hubert ISSA, ??Efrem Payne et al, CEBPA mutations in 4708 patients with acute myeloid leukemia: differential impact of bZIP and TAD mutations on outcome. Blood 2021. PMID:[id number] 27: Thol F, ??Weissinger EM, ??Sam Lynn et al, IDH1 mutations in patients with myelodysplastic syndromes are associated with an unfavorable prognosis. Haematologica 2010. PMID:[id number] 28: Thol F, ??Lisa C, ??Bro Valdivia et al, Rare occurrence of DNMT3A mutations in myelodysplastic syndromes. Haematologica 2011. PMID:[id number] 29: Josey S, ??Liam AD, ??Joan H et al, Genetic alterations of the cohesin complex genes in myeloid malignancies. Blood 2014. PMID:[id number] 30: Barrett MERRITT, ??Tono Stroud, ??Jossue Amador et al, Recurrent DNMT3A mutations in patients with myelodysplastic syndromes. Leukemia 2011. PMID:[id number] 31: Lawrence Camargo, Juan Diego Kim, Comparison and Implications of Mutational Profiles of Myelodysplastic Syndromes, Myeloproliferative Neoplasms, and Myelodysplastic/Myeloproliferative Neoplasms: A [place]-Analysis. Front Oncol 2020. PMID:[id number] 32: Cornell Flower, ??Cornell Mason, ??Yuval Flower et al, IDH1 Mutation Is an Independent Inferior Prognostic Indicator for Patients with Myelodysplastic Syndromes. Acta Haematol 2017. PMID:[id number] 33: Ochoa Stroud, Gabriella R, Hieu ALBERTS, DNMT3A in haematological malignancies. [facility] Rev Cancer 2015. PMID:[id number] This result has been reviewed and approved by Jannette Dutta M.D. Low coverage regions: Listed below are regions where the average sequencing depth (number of times a particular nucleotide is sequenced) in at least 20% of the [id number] is less than our stringent cutoff of [...] NOTCH1; NPM1*; NRAS; NSD1; PHF6; PIGA; PPM1D; ECVC41Z; PRPF8; PTPN11; RAD21; RUNX1; SAMD9; SAMD9L; SETBP1; [...] developed and its performance characteristics determined by [employer]. It has not been cleared or approved by the U.S. Food and Drug Administration. This test was performed in a CLIA-certified laboratory and is intended for clinical purposes. Myeloid Malignancy Dx Mds Unspec 03/28/2024 2:06 PM [employer] [facility] ([facility]) Myeloid Malignancy Panel Specimen Bone Marrow 03/28/2024 2:06 PM [employer] [facility] ([facility]) EER Myeloid Malignancy See Note 03/28/2024 2:06 PM [employer] [facility] ([facility]) Comment: Authorized individuals can access the Code[employer] Enhanced Report using the following link: [email or web address] Performed By: [employer] [address] [place] [address] Neuroscience Specialist: Uche Morley MD, PhD CLIA Number: [id number] Other BONE MARROW SPECIMEN / Unknown Collection / Unknown 03/15/2024 9:05 AM [employer] 03/15/2024 9:30 AM [employer] Rodo Perez MD LAB - PATHOLOG Y/CYTOLOGY ORDERABLES [facility] ([facility]) [address] [place] [address], [facility] * FISH MDS PANEL BLOOD OR BONE MARROW (03/15/2024 9:05 AM [employer]) [facility] MDS Panel by Fish See Note Normal 024 11:26 AM [employer] [facility] ([facility]) Comment: Test Performed: Myelodysplastic Syndrome (MDS) Panel by FISH (FISH MDS P) Specimen Type: Bone Marrow Indication for Testing: Myelodysplastic syndrome, unspecified RESULT Normal FISH Result Deletion 5q: ??not detected Monosomy 7: ??not detected Deletion 7q: ??not detected Trisomy 8: ??not detected Deletion 20q: ??not detected INTERPRETATION There was no evidence of deletion 5q31, monosomy 7, deletion 7q31, trisomy 8, or deletion 55z49-p36.1. This analysis was performed with the MDS panel probes D5S23/EGR1, D7Z1/L6L838, CEP8 ([employer]), and Del(20q) ([employer]). A total of 200 cells were scored for each probe. Cytogenomic Nomenclature (ISCN): nuc nereyda(D5S23,EGR1,D7Z1,J6G614,D8Z2,C03G103,MYBL2)x2[200' This result has been reviewed and approved by Nabila Gonzalez, PhD, [facility] A portion of this analysis was performed at the following location(s): [employer] Site [place]#2 INTERPRETIVE INFORMATION: MDS Panel by FISH This test was developed and its performance characteristics determined by [employer]. It has not been cleared or approved by the US Food and Drug Administration. This test was performed in a CLIA certified laboratory and is intended for clinical purposes. EER MDS Fish Panel See Note 2023 11:26 AM [employer] [facility] ([facility]) Comment: Authorized individuals can access the [employer] Enhanced Report using the following link: [email or web address] Performed By: [employer] [address] [place] [address] Neuroscience Specialist: Uche Morley MD, PhD CLIA Number: [id number] Other BONE MARROW SPECIMEN / Unknown Collection / Unknown 03/15/2024 9:05 AM [employer] 03/15/2024 9:30 AM [employer] Rodo Perez MD LAB - PATHOLOG Y/CYTOLOGY ORDERABLES [facility] ([facility]) [address] [place] [address], [facility] * FISH AML PANEL BLOOD OR BM RFLX PML/DANTE (03/15/2024 9:05 AM [employer]) FISH AML Panel See Note Normal 03/25/2024 10:34 AM [employer] [facility] ([facility]) Comment: Test Performed: Acute Myeloid Leukemia Panel by FISH (FISHAML) Specimen Type: Bone Marrow Indication for Testing: Myelodysplastic syndrome, unspecified RESULT Normal FISH Result inv(3) or t(3;3) GATA2::MECOM Fusion: ??not detected Deletion 5q: ??not detected Monosomy 7: ??not detected Deletion 7q: ??not detected t(8;21) RUNX1::BMOC5K7 Fusion: ??not detected 11p15 (NUP98) Rearrangement: ??not detected 11q23 (KMT2A) Rearrangement: ??not detected inv(16) or t(16;16) CBFB::MYH11 Fusion: ??not detected INTERPRETATION There was no evidence of GATA2::MECOM (also known as RPN1-EVI1) fusion due to 3q21/3q26.2 inversion or translocation, deletion 5q31, monosomy 7, deletion 7q31, RUNX1::FYNK2T0 fusion due to translocation (8;21)(q21.3;q22), 11p15 (NUP98) rearrangement, 11q23 KMT2A (MLL) rearrangement, or CBFB::MYH11 fusion due to either 16p13.1/16q22 inversion or translocation. This analysis was performed with the AML panel probes RPN1/MECOM, D5S23/EGR1, D7Z1/A1I889, RUNX1/INKO6F8 ([employer]), NUP98 and CBFB-MYH11 ([employer]), and MLL (KMT2A) ([employer]). A total of 200 cells were scored for each probe. Cytogenomic Nomenclature (ISCN): nuc nereyda(RPN1,MECOM,D5S23,EGR1,D7Z1,H3O297,WPPC2M1,NUP98,KMT2A,MYH11,CBF B,RUNX1)x2[200' This result has been reviewed and approved by Mundo Mejia, PhD, [facility] A portion of this analysis was performed at the following location(s): [employer] Site CG-[place]#1 INTERPRETIVE INFORMATION: AML Panel by FISH This test was developed and its performance characteristics determined by [employer]. It has not been cleared or approved by the US Food and Drug Administration. This test was performed in a CLIA certified laboratory and is intended for clinical purposes. EER AML Panel by FISH See Note 03/25/2024 10:34 AM [employer] [facility] ([facility]) Comment: Authorized individuals can access the HandInScan Enhanced Report using the following link: [email or web address] Performed By: [employer] [address] [place] [address] Neuroscience Specialist: Uche Morley MD, PhD CLIA Number: [id number] Other BONE MARROW SPECIMEN / Unknown Collection / Unknown 03/15/2024 9:05 AM [employer] 03/15/2024 9:30 AM [employer] Rodo Perez MD LAB - PATHOLOG Y/CYTOLOGY ORDERABLES [facility] ([facility]) [address] [place] [address], [facility] * FLOW CYTOMETRY BONE MARROW (03/15/2024 9:05 AM [employer]) Case Report Flow Cytometry ?Case: [id number] ? Authorizing Provider: ??Rodo Perez, ?? Collected: ? 03/15/2024 09:05 AM ? MD ? Ordering Location: ? [facility] 7N ACUTE ? Received: ?03/15/2024 09:30 AM ? Pathologist: ? Angeles Rosado MD ? Specimen: ?Bone Marrow ? 03/15/2024 2:40 PM [facility] Final Diagnosis Bone marrow, flow cytometric immunophenotypic analysis: - Paucicellular specimen with increased myeloblasts detected (42.4% of events) - See interpretation 03/15/2024 2:40 PM [facility] Flow Cytometry Interpretation Viability: 92%, [...] has been reviewed for quality assurance supervisor final purposes. Correlation with the concurrent bone marrow biopsy ([id number]) is required. 03/15/2024 2:40 PM [facility] Flow Cytometry Results Differential Result Comment Flow Cell Count /uL 980 Total Viability % 92.0 Lymphocytes % 13 Dim CD45 Region % 55 Monocytes % 2 Granulocytes % 28 03/15/2024 2:40 PM [facility] Reason for test MDS (myelodysplastic syndrome) (HCC) 238.75 03/15/2024 2:40 PM [facility] Client Specimen ID # [id number] 03/15/2024 2:40 PM [facility] Number of markers 24 were performed. A-2 Flow CD10 A-3 Flow CD13 A-5 Flow CD20 A-11 Flow CD2 A-13 Flow CD14 A-16 Flow CD117 A-17 Flow CD11b A-18 Flow CD11c A-1 Flow CD5 A-4 Flow CD19 A-6 Flow CD33 A-7 Flow CD34 A-8 Flow CD45 A-12 Flow CD7 A-14 Flow CD56 A-15 Flow CD64 A-23 cyCD22 A-24 qhVO01l A-9 [place]+CD19+ A-10 L[place]+CD19+ A-19 Flow HLA-DR A-20 Flow MPO A-21 Flow TdT A-22 cyCD3 03/15/2024 2:40 PM [facility] Pathologist Location at [facility] 03/15/2024 2:40 PM [facility] Disclaimer Test performed at [facility], [address] [place] [address], [address]. *The established laboratory minimum viability is 70%. [...] high complexity clinical testing. 03/15/2024 2:40 PM [facility] Embedded Images 2:40 PM [facility] Pathology/Cytolo gy BONE MARROW SPECIMEN / Unknown Collection / Unknown 03/15/2024 9:05 AM [employer] 03/15/2024 9:30 AM [employer] Rodo Perez MD LAB - PATHOLOG Y/CYTOLOGY ORDERABLES Performing Organization Address [facility]/State/[facility] Co de Phone Number [facility] [address] [place] [address]. [place] [address], [facility] [phone] * BONE MARROW BIOPSY (STL) (03/15/2024 9:05 AM [employer]) Case Report Bone Marrow Patholog y Report ?Case: [id number] ? Authorizing Provider: ??Rodo Perez, ?? Collected: ? 03/15/2024 09:05 AM ? MD ? Ordering Location: ? [facility] 7N ACUTE ? Received: ?03/15/2024 09:30 AM ? Pathologist: ? Stephanie, Guillermo H, MD ? Specimens: ?? A) - Bone Marrow Clot ? B) - Bone Marrow Core ? C) - Bone Marrow Aspirate ? D) - Blood Peripheral ? 03/18/2024 4:01 PM [facility] Final Diagnosis Bone marrow, aspirate, clot section, and core biopsy: - Acute myeloid leukemia. - See description. Peripheral blood smear: - Pancytopenia. - See description. 03/18/2024 4:01 PM [facility] Comment Immunohistochemistry performed show ~30% [...] for a definitive subclassification. 03/18/2024 4:01 PM [facility] Peripheral Smear Description RBC: normocytic anemia. WBC: leukopenia with absolute neutropenia and lymphopenia. No circulating blasts seen. Platelets: decreased in number. 03/18/2024 4:01 PM [facility] Bone Marrow Aspirate Differential count [...] stain): no ring sideroblasts. 03/18/2024 4:01 PM [facility] Bone Marrow Core Biopsy and [...] morphology: peripheral blood only. 03/18/2024 4:01 PM [facility] Flow Cytometry Summary Bone marrow, flow cytometric immunophenotypic analysis ([id number]): - Paucicellular specimen with increased myeloblasts detected (42.4% of events) 03/18/2024 4:01 PM [facility] Clinical History New AML. 03/18/2024 4:01 PM [facility] Gross Description The requisition and specimen(s) are identified with the patient's name Russ Burciaga. Received in fresh, specimen A, clot is [...] in cassette B1. DF 03/18/2024 4:01 PM [facility] Pathologist Location at [facility] 03/18/2024 4:01 PM [facility] Disclaimer The performance characteristics of all immunohistochemical and indirect immunofluorescence stains (if any) cited in this report were determined by the [facility]. Some of these tests were developed [...] the attending (teaching) pathologist. 03/18/2024 4:01 PM [facility] Embedded Images 03/18/2024 4:01 PM [facility] Pathology/Cytology PERIPHERAL BLOOD / Unknown Collection / Unknown 03/15/2024 9:05 AM [employer] 03/15/2024 9:30 AM [employer] Miscellaneous samples (specimen) BONE MARROW SPECIMEN / Unknown 03/15/2024 9:05 AM [employer] 03/15/2024 9:30 AM [employer] Miscellaneous samples (specimen) SPECIMEN FROM BONE MARROW OBTAINED BY ASPIRATION / Unknown 03/15/2024 9:05 AM [employer] 03/15/2024 9:30 AM [employer] Miscellaneous samples (specimen) PERIPHERAL BLOOD / Unknown 03/15/2024 9:05 AM [employer] 03/15/2024 11:39 AM [employer] Rodo Perez MD LAB - PATHOLOG Y/CYTOLOGY ORDERABLES Performing Organization Address City/State/[facility] Co de Phone Number [facility] [address] [place] [address], [facility] [phone] * FISH PML/DANTE PANEL (03/15/2024 9:05 AM [employer]) EER PML/DANTE Translocation by Fish See Note 03/17/2024 4:41 PM [employer] [facility] ([facility]) Comment: Authorized individuals can access the HandInScan Enhanced Report using the following link: [email or web address] Performed By: [employer] [address] [place] [address] Neuroscience Specialist: Uche Morley MD, PhD CLIA Number: [id number] PML/DANTE Translocation by FISH See Note 03/17/2024 4:41 PM [employer] [facility] ([facility]) Comment: Test Performed: PML-DANTE Translocation by FISH [...] reviewed and approved by Nabila Gonzalez, PhD, [facility] A portion of this analysis was performed at the following location(s): [facility] Site CG-[place]#2 INTERPRETIVE INFORMATION: PML/DANTE Translocation by FISH This test was developed and its performance characteristics determined by [facility]. It has not been cleared or approved by the US Food and Drug Administration. This test was performed in a CLIA certified laboratory and is intended for clinical purposes. Other BONE MARROW SPECIMEN / Unknown Collection / Unknown 03/15/2024 9:05 AM [employer] 03/15/2024 9:30 AM [employer] Rodo Perez MD LAB - PATHOLOG Y/CYTOLOGY ORDERABLES [facility]) [address] [place], [place] [address] * CHROMOSOME ANALYSIS BONE MARROW PANEL (03/15/2024 9:05 AM [employer]) Pathologist [facility] Chromosome Analysis Bone Marrow See Note Normal 03/22/2024 11:01 AM [employer] [facility] ([facility]) Comment: Test Performed: Chromosome Analysis Specimen Type: [...] study. NOTE: Concurrent FISH PML performed under [facility] accession [id number] was NORMAL. FISHAML and FISH MDS P are PENDING and will be reported under [facility] accessions [id number] and [id number]. This result has been reviewed and approved by Randall Yun, PhD, [facility] A portion of this analysis was performed at the following location(s): [facility] INTERPRETIVE INFORMATION: Chromosome Analysis, Bone Marrow This test was developed and its performance characteristics determined by [employer]. It has not been cleared or approved by the US Food and Drug Administration. This test was performed in a CLIA certified laboratory and is intended for clinical purposes. EER Chromosome Analysis Bone Marrow See Note 03/22/2024 11:01 AM [employer] [facility]) Comment: Authorized individuals can access the [facility] Enhanced Report using the following link: [email or web address] Performed By: [facility] [address] [place] [address] Neuroscience Specialist: Uche Morley MD, PhD CLIA Number: [id number] Bone marrow BONE MARROW SPECIMEN / Unknown 03/15/2024 9:05 AM [employer] 03/15/2024 9:30 AM [employer] Rodo Perez MD LAB - PATHOLOG Y/CYTOLOGY ORDERABLES [facility]) [address] [place] [address], [facility] * (ABNORMAL) DIFFERENTIAL MANUAL (03/15/2024 7:53 AM [employer]) Neutrophil % 8(L) 41 - 74 % 03/15/2024 9:45 AM [facility] Lymphocyte % 81(H) 17 - 47 % 03/15/2024 9:45 AM [facility] Monocyte % 6 3 - 11 % 03/15/2024 9:45 AM [facility] Eosinophil % 3 0 - 7 % 03/15/2024 9:45 AM [facility] Basophil % 2 0 - 2 % 03/15/2024 9:45 AM [facility] Neutrophil Absolute 0.07(L) 1.60 - 7.50 x10E9/L 03/15/2024 9:45 AM [facility] Lymphocyte Absolute 0.73(L) 1.00 - 4.40 x10E9/L 03/15/2024 9:45 AM [facility] Monocyte Absolute 0.05(L) 0.15 - 1.00 x10E9/L 03/15/2024 9:45 AM [facility] Eosinophil Absolute 0.03 0.00 - 0.60 x10E9/L 03/15/2024 9:45 AM [facility] Basophil Absolute 0.02 0.00 - 0.13 x10E9/L 03/15/2024 9:45 AM [facility] RBC Morphology REVIEWED 03/15/2024 9:45 AM [facility] Ovalocytes MODERATE(A) (none) 03/15/2024 9:45 AM [facility] Schistocytes FEW(A) (none) 03/15/2024 9:45 AM [facility] Large Platelets PRESENT(A) (none) 9:45 AM [facility] Blood BLOOD SPECIMEN / Unknown Lab Venipuncture / Unknown 03/15/2024 7:53 AM [employer] 03/15/2024 8:34 AM [facility] Ghanshyam Dewey PA-C LAB - HEMATOLOGY ORD ERABLES [facility] [address] [place] [address], [facility] [phone] * LDH BLOOD (03/15/2024 7:53 AM [employer]) LDH Total 163 125 - 243 Units/L 03/15/2024 9:27 AM [facility] Blood BLOOD SPECIMEN / Unknown Lab Venipuncture / Unknown 03/15/2024 7:53 AM [employer] 03/15/2024 8:33 AM [employer] Ghanshyam Dewey PA-C LAB - CHEMISTRY ORDE RABLES Performing Organization Address [facility] Co de Phone Number [address] [address], [facility] [phone] * PTT [facility] (03/15/2024 7:53 AM [employer]) APTT 31.4 23.0 - 38.4 Seconds 03/15/2024 9:04 AM [facility] Comment:Suggested therapeuti c range for full dose I.V. unfractionated heparin therapy for venous 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 is 71 to 109 seconds. Blood BLOOD SPECIMEN / Unknown Lab Venipuncture / Unknown 03/15/2024 7:53 AM [employer] 03/15/2024 8:27 AM [employer] Ghanshyam Dewey PA-C LAB - COAGULATION OR DERABLES Performing Organization Address [facility] de Phone Number [address] [address], [facility] [phone] * (ABNORMAL) PT-INR [facility] (03/15/2024 7:53 AM [employer]) PT 16.1(H) 12.1 - 14.8 Seconds 03/15/2024 9:04 AM [facility] INR 1.3 See Comment 03/15/2024 9:04 AM [facility] Comment:The suggested therap eutic range for standard coumadin (warfarin) therapy is an INR of 2.0-3.0. For high-risk patients (Mechanical Mitral Valve Prosthesis, etc.), the suggested prophylactic therapeutic range is an INR of 2.5-3.5. Blood BLOOD SPECIMEN / Unknown Lab Venipuncture / Unknown 03/15/2024 7:53 AM [employer] 03/15/2024 8:27 AM [employer] Ghanshyam Dewey PA-C LAB - COAGULATION OR DERABLES [address] [address], [facility] [phone] * URIC ACID BLOOD (03/15/2024 7:53 AM [employer]) Uric Acid 6.2 3.5 - 7.2 mg/dL 03/15/2024 9:27 AM [employer] [facility] Blood BLOOD SPECIMEN / Unknown Lab Venipuncture / Unknown 03/15/2024 7:53 AM [employer] 03/15/2024 8:33 AM [employer] Ghanshyam Dewey PA-C LAB - CHEMISTRY ORDE JOCELIN Performing Organization Address City/[facility]/ZIP Co de Phone Number [address] [address], [facility] [phone] * PHOSPHORUS BLOOD (03/15/2024 7:53 AM [employer]) Phosphorus 2.9 2.8 - 5.1 mg/dL 03/15/2024 9:27 AM [employer] [facility] Blood BLOOD SPECIMEN / Unknown Lab Venipuncture / Unknown 03/15/2024 7:53 AM [employer] 03/15/2024 8:33 AM [employer] Ghanshyam Dewey PA-C LAB - CHEMISTRY ORDNatalie MONREAL [address] [address], [place] [phone] * MAGNESIUM BLOOD (03/15/2024 7:53 AM [employer]) Magnesium 2.1 1.6 - 2.6 mg/dL 03/15/2024 9:27 AM [employer] [facility] Blood BLOOD SPECIMEN / Unknown Lab Venipuncture / Unknown 03/15/2024 7:53 AM [employer] 03/15/2024 8:33 AM [employer] Ghanshyam Dewey PA-C LAB - CHEMISTRY CHELI MONREAL [facility] [address] [place] [address], [facility] [phone] * (ABNORMAL) COMPREHENSIVE METABOLIC PANEL (03/15/2024 7:53 AM [facility]) BUN 12 7 - 26 mg/dL 03/15/2024 9:27 AM [facility] Creatinine 1.34(H) 0.71 - 1.16 mg/dL 03/15/2024 9:27 AM [facility] Sodium 145 136 - 145 mmol/L 03/15/2024 9:27 AM [facility] Potassium 4.3 3.5 - 4.5 mmol/L 03/15/2024 9:27 AM [facility] Chloride 107 98 - 107 mmol/L 03/15/2024 9:27 AM [facility] CO2 25 22 - 29 mmol/L 03/15/2024 9:27 AM [facility] Glucose 104(H) 70 - 99 mg/dL 03/15/2024 9:27 AM [facility] Calcium 9.3 8.4 - 10.2 mg/dL 03/15/2024 9:27 AM [facility] Protein Total 6.4 6.0 - 8.3 g/dL 03/15/2024 9:27 AM [facility] Albumin 3.5 3.4 - 5.0 g/dL 03/15/2024 9:27 AM [facility] Bilirubin Total 0.8 0.2 - 1.2 mg/dL 03/15/2024 9:27 AM [facility] Alkaline Phosphatase 115 40 - 150 U/L 03/15/2024 9:27 AM [facility] ALT 12 5 - 55 U/L 03/15/2024 9:27 AM [facility] AST 15 5 - 34 U/L 03/15/2024 9:27 AM [facility] Anion Gap 13 6 - 16 03/15/2024 9:27 AM [facility] BUN/Creatinine Ratio 9 7 - 23 03/15/2024 9:27 AM [facility] Osmolality Calculated 300(H) 275 - 295 mOsm/kg 03/15/2024 9:27 AM [facility] Albumin/Globulin Ratio 1.2 1.1 - 2.3 03/15/2024 9:27 AM [facility] eGFR by CKD-EPI 54(L) >=90 mL/min/1.7 3 m2 03/15/2024 9:27 AM [facility] Blood BLOOD SPECIMEN / Unknown Lab Venipuncture / Unknown 03/15/2024 7:53 AM [employer] [facility] [employer] 03/15/2024 8:33 AM [employer] Ghanshyam Dewey PA-C LAB - CHEMISTRY ELIE JOCELIN [facility] [address] [place] [address], [facility] [phone] * (ABNORMAL) CBC W AUTO DIFFERENTIAL (03/15/2024 7:53 AM [employer]) WBC 0.9(LL) 4.0 - 10.7 x10E9/L 03/15/2024 9:45 AM [facility] RBC Count 4.12(L) 4.30 - 5.80 x10E12/L 03/15/2024 9:45 AM [facility] Hemoglobin 11.7(L) 13.3 - 17.5 g/dL 03/15/2024 9:45 AM [facility] Hematocrit 35.9(L) 38.7 - 51.1 % 03/15/2024 9:45 AM [facility] MCV 87.1 80.0 - 98.0 fL 03/15/2024 9:45 AM [facility] MCH 28.4 26.7 - 33.6 pg 03/15/2024 9:45 AM [facility] MCHC 32.6 31.7 - 36.3 g/dL 03/15/2024 9:45 AM [facility] RDW-CV 17.0(H) 11.3 - 14.8 % 03/15/2024 9:45 [facility] Platelet Count 95(L) 150 - 420 x10E9/L 03/15/2024 9:45 [facility] MPV 12.7(H) 7.8 - 11.4 fL 03/15/2024 9:45 [facility] Preliminary Absolute Neutrophil 0.10(L) 1.60 - 7.50 x10E9/L 03/15/2024 9:45 [facility] Blood BLOOD SPECIMEN / Unknown Lab Venipuncture / Unknown 03/15/2024 7:53 [facility] 03/15/2024 8:34 [facility] Ghanshyam Dewey PA-C LAB - HEMATOLOGY ORD ERABLES Performing Organization Address City/[facility]/ZIP Co de Phone Number [facility] [address] [phone], [facility] [phone] * EKG 12-LEAD (03/14/2024 12:30 PM [employer]) Ventricular Rate 61 BPM [facility] MUSE Atrial Rate 61 BPM [facility] MUSE P-R Interval 112 ms [facility] MUSE QRS Duration ms 122 ms [facility] MUSE Q-T Interval ms 470 ms [facility] MUSE QTC Calculation (Bezet) 473 ms [facility] MUSE Calculated P Midway 28 degrees [facility] MUSE Calculated R Midway 37 degrees [facility] MUSE Calculated T Midway -135 degrees [facility] MUSE Interpretation EKG NORMAL SINUS RHYTHM RIGHT BUNDLE BRANCH BLOCK T WAVE ABNORMALITY, CONSIDER INFEROLATERAL ISCHEMIA ABNORMAL ECG NO PREVIOUS ECGS AVAILABLE Confirmed by SEBASTIÁN MERRILL DO ([id number]) on 03/20/2024 3:59:47 PM [facility] MUSE 03/14/2024 12:3 0 PM [employer] 03/20/2024 3:59 PM [employer] Ghanshyam Dewey PA-C ECG ORDERABLES Performing Organization Address City/[facility]/ZIP Co de Phone Number [facility] MUSE * FLOW CYTOMETRY BLOOD PROFILE (03/14/2024 10:32 AM [employer]) Case Report Flow Cytometry ?Case: [id number] ? Authorizing Provider: ??Ghanshyam Dewey PA-C ? Collected: ? 03/14/2024 10:32 AM ? Ordering Location: ? [facility] ? Received: ?03/14/2024 01:49 PM ? Pathologist: ? Angeles Rosado MD ? Specimen: ?Blood ? 03/14/2024 4:58 PM [facility] Final Diagnosis Peripheral blood, flow cytometric immunophenotypic analysis: - 1.2% myeloblasts detected - No evidence of a monoclonal B-cell population - See interpretation 03/14/2024 4:58 PM [facility] Flow Cytometry Results Differential Result Comment WBC Count /uL 1,200 Total Viability % 100.0 Lymphocytes % 80 Dim CD45 Region % 4 Monocytes % 4 Granulocytes % 13 03/14/2024 4:58 PM [facility] Flow Cytometry Interpretation Viability: 100% B-cells: polytypic, kappa:lambda ratio 1.1:1. Blasts: 1.2% of events are myeloblasts. Monocytes are mature. A peripheral blood smear prepared from the flow cytometry specimen has been reviewed for quality assurance supervisor final purposes. 03/14/2024 4:58 PM [facility] Reason for test MDS (myelodysplastic syndrome) (HCC) 238.75 03/14/2024 4:58 PM [facility] Client Specimen ID # [id number] 03/14/2024 4:58 PM [facility] Pathologist Location at [facility] 03/14/2024 4:58 PM [facility] Disclaimer Test performed at [facility], [address] [place] [address], [id number]. *The established laboratory minimum viability is 70%. [...] high complexity clinical testing. 03/14/2024 4:58 PM [facility] Embedded Images 4:58 PM [facility] Number of markers 19 were performed. A-2 Flow CD10 A-3 Flow CD13 A-5 Flow CD20 A-11 Flow CD2 A-13 Flow CD14 A-16 Flow CD117 A-17 Flow CD11b A-18 Flow CD11c A-1 Flow CD5 A-4 Flow CD19 A-6 Flow CD33 A-7 Flow CD34 A-8 Flow CD45 A-12 Flow CD7 A-14 Flow CD56 A-15 Flow CD64 A-9 [place]+CD19+ A-10 Lambda+CD19+ A-19 Flow HLA-DR 03/14/2024 4:58 PM [facility] Blood BLOOD SPECIMEN / Unknown Lab Venipuncture / Unknown 03/14/2024 10:32 AM [employer] 03/14/2024 1:49 PM [employer] Ghanshyam Dewey PA-C LAB - PATHOLOGY/CYTO LOGY ORDERABLES [facility] [address] [place] [address]. [place] [address], [facility] [phone] * (ABNORMAL) DIFFERENTIAL MANUAL (03/13/2024 11:26 PM [employer]) Neutrophil % 6(L) 41 - 74 % 03/14/2024 12:34 AM [facility] Lymphocyte % 87(H) 17 - 47 % 03/14/2024 12:34 AM [facility] Monocyte % 3 3 - 11 % 03/14/2024 12:34 AM [facility] Eosinophil % 3 0 - 7 % 03/14/2024 12:34 AM [facility] Basophil % 1 0 - 2 % 03/14/2024 12:34 AM [facility] Neutrophil Absolute 0.07(L) 1.60 - 7.50 x10E9/L 03/14/2024 12:34 AM [facility] Lymphocyte Absolute 1.04 1.00 - 4.40 x10E9/L 03/14/2024 12:34 AM [facility] Monocyte Absolute 0.04(L) 0.15 - 1.00 x10E9/L 03/14/2024 12:34 AM [facility] Eosinophil Absolute 0.04 0.00 - 0.60 x10E9/L 03/14/2024 12:34 AM [facility] Basophil Absolute 0.01 0.00 - 0.13 x10E9/L 03/14/2024 12:34 AM [facility] RBC Morphology REVIEWED 03/14/2024 12:34 AM [facility] Microcytosis MODERATE(A) (none) 03/14/2024 12:34 AM [facility] Schistocytes MODERATE(A) (none) 03/14/2024 12:34 AM [facility] Giant Platelets PRESENT(A) (none) 12:34 AM [facility] Large Platelets PRESENT(A) (none) 12:34 AM [facility] Blood BLOOD SPECIMEN / Unknown Venipuncture / Unknown 03/13/2024 11:26 PM [employer] 03/13/2024 11:37 PM [employer] Ted Soler MD LAB - HEMATOLOGY O RDERABLES [facility] [address] [place] [address], [facility] [phone] * QUINN-RICHMOND VIRUS QUANT BLOOD STL (03/13/2024 11:26 PM [employer]) Pathologist [facility] EBV Quant by PCR, Interp Not detected Not detected 03/14/2024 8:56 AM [employer] [facility] MICROBIOLOGY Specimen Type Plasma 03/14/2024 8:56 AM [employer] [facility] Blood BLOOD SPECIMEN / Unknown Venipuncture / Unknown 03/13/2024 11:26 PM [employer] 03/13/2024 11:37 PM [employer] Narrative [facility] MICROBIOLOGY - 03/14/2024 8:56 AM [employer] The [place] viral (EBV) DNA analysis utilized a plasma [...] Soler MD LAB - CHEMISTRY OR DERABLES [facility] MICROBIOLOGY [address] [place] [address], [facility] [phone] * CYTOMEGALOVIRUS (CMV) QUANTITATIVE PLASMA (03/13/2024 11:26 PM [employer]) Pathologist [facility] CMV Quant by PCR, Interp Not detected Not detected 03/14/2024 9:00 AM [employer] [facility] Blood BLOOD SPECIMEN / Unknown Venipuncture / Unknown 03/13/2024 11:26 PM [employer] 03/13/2024 11:37 PM [employer] Narrative [facility] MICROBIOLOGY - 03/14/2024 9:00 AM [employer] The Cytomegalovirus (CMV) DNA analysis utilized a [...] Soler MD LAB - CHEMISTRY OR DERABLES [facility] [address] [place] [address], [facility] [phone] * LDH BLOOD (03/13/2024 11:26 PM [employer]) [facility] LDH Total 149 125 - 243 Units/L 03/14/2024 12:03 AM [employer] [facility] Blood BLOOD SPECIMEN / Unknown Venipuncture / Unknown 03/13/2024 11:26 PM [employer] 03/13/2024 11:37 PM [employer] Ted Soler MD LAB - CHEMISTRY OR DERABLES [facility] [address] [place] [address], [place] [phone] * PTT [facility] (03/13/2024 11:26 PM [employer]) APTT 31.6 23.0 - 38.4 Seconds 03/13/2024 11:58 PM [employer] [facility] Comment:Suggested therapeuti c range for full dose I.V. unfractionated heparin therapy for venous 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 is 71 to 109 seconds. Blood BLOOD SPECIMEN / Unknown Venipuncture / Unknown 03/13/2024 11:26 PM [employer] 03/13/2024 11:37 PM [employer] Ted Soler MD LAB - COAGULATION ORDERABLES [facility] [address] [place] [address], [facility] [phone] * (ABNORMAL) PT-INR [facility] (03/13/2024 11:26 PM [employer]) Pathologist [facility] PT 16.5(H) 12.1 - 14.8 Seconds 03/13/2024 11:58 PM [employer] [facility] INR 1.4 See Comment 03/13/2024 11:58 PM [employer] [facility] Comment:The suggested therap eutic range for standard coumadin (warfarin) therapy is an INR of 2.0-3.0. For high-risk patients (Mechanical Mitral Valve Prosthesis, etc.), the suggested prophylactic therapeutic range is an INR of 2.5-3.5. Blood BLOOD SPECIMEN / Unknown Venipuncture / Unknown 03/13/2024 11:26 PM [employer] 03/13/2024 11:37 PM [employer] Ted Soler MD LAB - COAGULATION ORDERABLES [facility] [address] [place] [address], [facility] [phone] * FIBRINOGEN ACTIVITY (03/13/2024 11:26 PM [employer]) Fibrinogen Clauss 362 200 - 400 mg/dL 03/13/2024 11:59 PM [employer] [facility] Blood BLOOD SPECIMEN / Unknown Venipuncture / Unknown 03/13/2024 11:26 PM [employer] 03/13/2024 11:37 PM [employer] Ted Soler MD LAB - COAGULATION ORDERABLES [facility] [address] [place] [address], [facility] [phone] * D-DIMER (03/13/2024 11:26 PM [employer]) D-Dimer Quantitative <0.27 <=0.50 mcg/mL FEU 03/14/2024 12:00 AM [employer] [facility] Comment: In the absence of clinical symptoms, [...] Unknown Venipuncture / Unknown 03/13/2024 11:26 PM [employer] 03/13/2024 11:37 PM [employer] Ted Soler MD LAB - COAGULATION ORDERABLES [facility] [address] [address], [place] [phone] * URIC ACID BLOOD (03/13/2024 11:26 PM [employer]) Uric Acid 6.0 3.5 - 7.2 mg/dL 03/14/2024 12:15 AM [employer] [facility] Blood BLOOD SPECIMEN / Unknown Venipuncture / Unknown 03/13/2024 11:26 PM [employer] 03/13/2024 11:37 PM [employer] Ted Soler MD LAB - CHEMISTRY OR DERABLES [address] [address], [place] [phone] * PHOSPHORUS BLOOD (03/13/2024 11:26 PM [employer]) Phosphorus 3.5 2.8 - 5.1 mg/dL 03/14/2024 12:03 AM [employer] [facility] Blood BLOOD SPECIMEN / Unknown Venipuncture / Unknown 03/13/2024 11:26 PM [employer] 03/13/2024 11:37 PM [employer] Ted Soler MD LAB - CHEMISTRY OR DERABLES [address] [address], [place] [phone] * MAGNESIUM BLOOD (03/13/2024 11:26 PM [employer]) Magnesium 2.2 1.6 - 2.6 mg/dL 03/14/2024 12:03 AM [employer] [facility] Blood BLOOD SPECIMEN / Unknown Venipuncture / Unknown 03/13/2024 11:26 PM [employer] 03/13/2024 11:37 PM [employer] Ted Soler MD LAB - CHEMISTRY OR DERABLES [address] [address], [place] [phone] * (ABNORMAL) COMPREHENSIVE METABOLIC PANEL (03/13/2024 11:26 PM [facility]) BUN 16 7 - 26 mg/dL 03/14/2024 12:03 AM [facility] Creatinine 1.12 0.71 - 1.16 mg/dL 03/14/2024 12:03 AM [facility] Sodium 140 136 - 145 mmol/L 03/14/2024 12:03 AM [facility] Potassium 4.0 3.5 - 4.5 mmol/L 03/14/2024 12:03 AM [facility] Chloride 109(H) 98 - 107 mmol/L 03/14/2024 12:03 AM [facility] CO2 24 22 - 29 mmol/L 03/14/2024 12:03 AM [facility] Glucose 110(H) 70 - 99 mg/dL 03/14/2024 12:03 AM [facility] Calcium 9.3 8.4 - 10.2 mg/dL 03/14/2024 12:03 AM [facility] Protein Total 6.6 6.0 - 8.3 g/dL 03/14/2024 12:03 AM [facility] Albumin 3.7 3.4 - 5.0 g/dL 03/14/2024 12:03 AM [facility] Bilirubin Total 0.5 0.2 - 1.2 mg/dL 03/14/2024 12:03 AM [facility] Alkaline Phosphatase 109 40 - 150 U/L 03/14/2024 12:03 AM [facility] ALT 16 5 - 55 U/L 03/14/2024 12:03 AM [facility] AST 19 5 - 34 U/L 03/14/2024 12:03 AM [facility] Anion Gap 7 6 - 16 03/14/2024 12:03 AM [facility] BUN/Creatinine Ratio 14 7 - 23 03/14/2024 12:03 AM [facility] Osmolality Calculated 292 275 - 295 mOsm/kg 03/14/2024 12:03 AM [facility] Albumin/Globulin Ratio 1.3 1.1 - 2.3 03/14/2024 12:03 AM [employer] [facility] eGFR by CKD-EPI 67(L) >=90 mL/min/1.7 3 m2 03/14/2024 12:03 AM [facility] Blood BLOOD SPECIMEN / Unknown Venipuncture / Unknown 03/13/2024 11:26 PM [employer] 03/13/2024 11:37 PM [employer] Ted Soler MD LAB - CHEMISTRY OR DERABLES Performing Organization Address [facility] Co de Phone Number [facility] [address] [place] [address] [phone] * (ABNORMAL) CBC W AUTO DIFFERENTIAL (03/13/2024 11:26 PM [employer]) WBC 1.2(L) 4.0 - 10.7 x10E9/L 03/14/2024 12:34 AM [facility] RBC Count 4.14(L) 4.30 - 5.80 x10E12/L 03/14/2024 12:34 AM [facility] Hemoglobin 11.6(L) 13.3 - 17.5 g/dL 03/14/2024 12:34 AM [facility] Hematocrit 35.8(L) 38.7 - 51.1 % 03/14/2024 12:34 AM [facility] MCV 86.5 80.0 - 98.0 fL 03/14/2024 12:34 AM [facility] MCH 28.0 26.7 - 33.6 pg 03/14/2024 12:34 AM [facility] MCHC 32.4 31.7 - 36.3 g/dL 03/14/2024 12:34 AM [facility] RDW-CV 17.0(H) 11.3 - 14.8 % 03/14/2024 12:34 AM [facility] Platelet Count 103(L) 150 - 420 x10E9/L 03/14/2024 12:34 AM [facility] MPV 12.8(H) 7.8 - 11.4 fL 03/14/2024 12:34 AM [facility] Preliminary Absolute Neutrophil 0.11(L) 1.60 - 7.50 x10E9/L 03/14/2024 12:34 AM [employer] [facility] Comment:Preliminary ANC pend ing manual confirmation Blood BLOOD SPECIMEN / Unknown Venipuncture / Unknown 03/13/2024 11:26 PM [employer] 03/13/2024 11:37 PM [employer] Ted Soler MD LAB - HEMATOLOGY O RDERABLES [facility] [address] [place] [address], [facility] [phone] * CHROMOSOME ANALYSIS LEUKEMIA BLD (03/04/2024 4:13 PM [employer]) Chromosome Analysis Leukemic Blood See Note Normal 03/23/2024 12:39 PM [employer] [facility] ([facility]) Comment: Test Performed: Chromosome Analysis Specimen Type: [...] FISH AML/PML and TAML MDS performed under [employer] accessions [id number] and [id number] were NORMAL. This result has been reviewed and approved by Margaret Roberson, PhD, [facility] INTERPRETIVE INFORMATION: Chromosome Analysis, ?Leukemic Blood This test was developed and its performance characteristics determined by [employer]. It has not been cleared or approved by the [place] Food and Drug Administration. This test was performed in a CLIA certified laboratory and is intended for clinical purposes. EER Chromosome Analysis Leukemic See Note 03/23/2024 12:39 PM [employer] Code71 [facility] [facility] ([facility]) Comment: Authorized individuals can access the [employer] Enhanced Report using the following link: [email or web address] Performed By: [employer] [address] [place] [address] Neuroscience Specialist: Uche Morley MD, PhD CLIA Number: [id number] Blood BLOOD SPECIMEN / Unknown Lab Venipuncture / Unknown 03/04/2024 4:13 PM [employer] 03/22/2024 5:28 PM [employer] Cindy Garcia MD LAB - PATHOLOGY/CYTO LOGY ORDERABLES [facility]) [address] [place] [address], 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 0.9% NaCl injection 3 mL 3 mL, Intracatheter, EVERY 8 HOURS, First dose on Mon03/13/24 at 2215, Until Discontinued, Flush peripheral IV catheter with 3 mL of normal saline every 8 hours. $ Given 03/23/2024 8:53 AM [employer] 3 mL $ Given 03/22/2024 8:30 PM [employer] 3 mL $ Given 03/21/2024 9:34 PM [employer] 3 mL acetaminophen (Tylenol) tablet 650 mg 650 mg, Oral, EVERY 4 HOURS PRN, Fever, Mild Pain, Headache, Starting on Yas 03/21/24 at 1348, Until 03/23/24 at 1456, Patient preference for lesser PRN pain meds may be honored when the patient requests a less strong medication, a lower dose, or a less intrusive route of administration when the lesser drug, dose and route have been ordered for the patient. This patient request must be documented in the MAR. If both oral and IV options are ordered for the same pain severity, give oral first unless patient cannot tolerate oral intake allopurinol (Zyloprim) tablet 300 mg 300 mg, Oral, DAILY AFTER BREAKFAST, First dose on Mon03/20/24 at 0915, Until Discontinued $ Given 03/23/2024 8:52 AM [employer] 300 mg $ Given 03/22/2024 8:38 AM [employer] 300 mg $ Given 03/21/2024 9:08 AM [employer] 300 mg apixaban (Eliquis) tablet 2.5 mg 2.5 mg, Oral, 2 TIMES DAILY, First dose (after last modification) on 03/16/24 at 2100, Until Discontinued $ Given 03/23/2024 8:52 AM [employer] 2.5 mg $ Given 03/22/2024 8:30 PM [employer] 2.5 mg $ Given 03/22/2024 8:38 AM [employer] 2.5 mg decitabine (Dacogen) 45 mg in 0.9% NaCl IV 119 mL infusion 45 mg (rounded from 44.8 mg = 20 mg/m2 ? 2.24 m2 Treatment Plan BSA from Recorded weight), at 119 mL/hr, Administer over 60 Minutes, Intravenous, ONCE, 1 dose, On Mon03/19/24 at 1700, WASTE DISPOSAL INSTRUCTIONS: Chemo Bin Disposal required. $ New Bag/Syringe 03/19/2024 5:46 PM [employer] 45 mg 119 mL/hr decitabine (Dacogen) 45 mg in 0.9% NaCl IV 119 mL infusion 45 mg (rounded from 44.8 mg = 20 mg/m2 ? 2.24 m2 Treatment Plan BSA from Recorded weight), at 119 mL/hr, Administer over 60 Minutes, Intravenous, ONCE, 1 dose, On Mon03/20/24 at 1300, WASTE DISPOSAL INSTRUCTIONS: Chemo Bin Disposal required. $ New Bag/Syringe 03/20/2024 12:57 PM [employer] 45 mg 119 mL/hr decitabine (Dacogen) 45 mg in 0.9% NaCl IV 119 mL infusion 45 mg (rounded from 44.8 mg = 20 mg/m2 ? 2.24 m2 Treatment Plan BSA from Recorded weight), at 119 mL/hr, Administer over 60 Minutes, Intravenous, ONCE, 1 dose, On Mon03/21/24 at 1300, WASTE DISPOSAL INSTRUCTIONS: Chemo Bin Disposal required. $ New Bag/Syringe 03/21/2024 1:24 PM [employer] 45 mg 119 mL/hr decitabine (Dacogen) 45 mg in 0.9% NaCl IV 119 mL infusion 45 mg (rounded from 44.8 mg = 20 mg/m2 ? 2.24 m2 Treatment Plan BSA from Recorded weight), at 119 mL/hr, Administer over 60 Minutes, Intravenous, ONCE, 1 dose, On Mon03/22/24 at 1300, WASTE DISPOSAL INSTRUCTIONS: Chemo Bin Disposal required. $ New Bag/Syringe 03/22/2024 12:02 PM [employer] 45 mg 119 mL/hr decitabine (Dacogen) 45 mg in 0.9% NaCl IV 119 mL infusion 45 mg (rounded from 44.8 mg = 20 mg/m2 ? 2.24 m2 Treatment Plan BSA from Recorded weight), at 119 mL/hr, Administer over 60 Minutes, Intravenous, ONCE, 1 dose, On Mon03/23/24 at 1100, WASTE DISPOSAL INSTRUCTIONS: Chemo Bin Disposal required. $ New Bag/Syringe 03/23/2024 11:25 AM [employer] 45 mg 119 mL/hr dilTIAZem coated beads 24hr (Cardizem CD) capsule 120 mg 120 mg, Oral, DAILY, First dose on Mon03/14/24 at 0900, Until Discontinued, Do not crush or chew. $ Given 03/23/2024 8:51 AM [employer] 120 mg $ Given 03/22/2024 8:38 AM [employer] 120 mg $ Given 03/21/2024 9:08 AM [employer] 120 mg lactated ringers infusion at 50 mL/hr, Intravenous, CONTINUOUS, Starting on Mon03/20/24 at 1000, Until Mon03/23/24 at 1456 $ New Bag/Syringe 03/23/2024 6:47 AM [employer] 50 mL/hr Rate Change 03/22/2024 10:35 AM [employer] 50 mL/hr Restarted 03/21/2024 9:33 PM [employer] 75 mL/hr lactated ringers IV bolus 500 mL, at 967.74 mL/hr, Administer over 31 Minutes, ONCE, 1 dose, On Mon03/20/24 at 0900 $ New Bag/Syringe 03/20/2024 9:39 AM [employer] 500 mL 967.74 mL/hr levoFLOXacin (Levaquin) tablet 500 mg 500 mg, Oral, EVERY 24 HOURS, First dose on Mon03/13/24 at 2345, Until Discontinued, Administer at least 2 hours before or 2 hours after antacids, sucralfate, metals (eg, iron, zinc), multivitamin preparations, tube feeds, Indication for anti-infective therapy: Chronic prophylaxis $ Given 03/23/2024 8:51 AM [employer] 500 mg $ Given 03/22/2024 8:38 AM [employer] 500 mg $ Given 03/21/2024 9:08 AM [employer] 500 mg LORazepam (Ativan) injection 2 mg 2 mg, Intravenous, NOW, 1 dose, On Mon03/15/24 at 0830 $ Given 03/15/2024 8:27 AM [employer] 2 mg magnesium oxide (Mag-Ox) tablet 400 mg 400 mg, Oral, 2 TIMES DAILY, 6 doses, First dose on Mon03/23/24 at 0730, Last dose on Mon03/25/24 at 1800 $ Given 03/23/2024 8:52 AM [employer] 400 mg ondansetron (disintegrating) (Zofran ODT) tablet 8 mg 8 mg, Oral, 2 TIMES DAILY PRN, Nausea/Vomiting, Starting on Mon03/19/24 at 1456, Until Mon03/23/24 at 1456, Use as alternate to prochlorperazine (COMPAZINE) for breakthrough nausea. Use if no IV access. Dissolved orally on tongue pantoprazole EC (Protonix) tablet 40 mg 40 mg, Oral, DAILY, First dose on Mon03/14/24 at 0900, Until Discontinued, Do not crush, chew, or cut in half. $ Given 03/23/2024 8:52 AM [employer] 40 mg $ Given 03/22/2024 8:38 AM [employer] 40 mg $ Given 03/21/2024 9:08 AM [employer] 40 mg perflutren lipid microsphere (Definity) injection 0.5 mL 0.5 mL, Intravenous, INTRA-PROCEDURE MULTIPLE, Starting on Mon03/15/24 at 1348, Until Mon03/15/24 at 1747, For Echo Procedure - Per Protocol Give slowly Shake well before using. $ Given 03/15/2024 1:54 PM [employer] 0.5 mL polyethylene glycol 3350 (Miralax) packet 17 g 17 g, Oral, DAILY, First dose on Mon03/15/24 at 2145, Until Discontinued, Mix in 8 ounces of water, juice, soda, coffee or tea prior to administration $ Given 03/23/2024 8:53 AM [employer] 17 g $ Given 03/22/2024 8:38 AM [employer] 17 g $ Given 03/21/2024 9:08 AM [employer] 17 g posaconazole (Noxafil) tablet 300 mg 300 mg, Oral, DAILY WITH DINNER, First dose on Mon03/13/24 at 2345, Until Discontinued, Swallow whole. Do not crush, chew, or cut in half., Indication for anti-infective therapy: Chronic prophylaxis $ Given 03/22/2024 5:07 PM [employer] 300 mg $ Given 03/21/2024 4:51 PM [employer] 300 mg $ Given 03/20/2024 5:00 PM [employer] 300 mg potassium - sodium phosphates (Phos-Nak) powder 1 packet 1 packet, Oral, 3 TIMES DAILY WITH MEALS, 9 doses, First dose on 03/23/24 at 0800, Last dose on Mon03/25/24 at 1800, Mix contents of packet in 6 to 8 ounces of water and drink, may taste better if cold Contains Phos 8 mmol, K+ 7 mEq, Na 7 mEq per packet $ Given 03/23/2024 11:20 AM CHAR DUST CLEANER AND SALVAGER 1 packe t $ Given 03/23/2024 8:51 AM CHAR [employer] CLE[employer]ER [employer] SALVAGER 1 packet prochlorperazine (Compazine) injection 10 mg 10 mg, Intravenous, EVERY 6 HOURS PRN, Nausea/Vomiting, Starting on Mon03/19/24 at 1456, Until 03/23/24 at 1456, First line for breakthrough nausea. Max intravenous rate = 5 mg/min prochlorperazine (Compazine) tablet 10 mg 10 mg, Oral, EVERY 6 HOURS PRN, Nausea/Vomiting, Starting on Mon03/19/24 at 1456, Until 03/23/24 at 1456, First line for breakthrough nausea. Use if no IV access. senna (Senokot) tablet 17.2 mg 17.2 mg, Oral, DAILY, First dose (after last modification) on Mon03/19/24 at 0900, Until Discontinued $ Given 03/23/2024 8:51 AM CHAR [employer] CLE[employer] SALVAGER 17.2 mg $ Given 03/22/2024 8:38 AM [employer] CLE[employer]ER [employer] SALVAGER 17.2 mg $ Given 03/21/2024 9:08 AM [employer] CLE[employer]ER [employer] SALVAGER 17.2 mg senna (Senokot) tablet 8.6 mg 8.6 mg, Oral, DAILY, First dose on Mon03/15/24 at 2245, Until Discontinued $ Given 03/18/2024 9:06 AM [employer]VAGER 8.6 mg $ Given 03/17/2024 8:58 AM [employer] CLE[employer]VAGER 8.6 mg $ Given 03/16/2024 8:56 AM [employer] CLE[employer] SALVAGER 8.6 mg valACYclovir (Valtrex) tablet 500 mg 500 mg, Oral, 2 TIMES DAILY, First dose on Mon03/13/24 at 2345, Until Discontinued, Indication for anti-infective therapy: Chronic prophylaxis $ Given 03/23/2024 8:52 AM [employer]VAGER 500 mg $ Given 03/22/2024 8:30 PM [employer] CLE[employer]VAGER 500 mg $ Given 03/22/2024 8:38 AM [employer] CLE[employer]ER [employer] SALVAGER 500 mg venetoclax (Venclexta) tablet 100 mg 100 mg, Oral, DAILY WITH FOOD, First dose on Mon03/19/24 at 1800, Until Discontinued, Caution chemotherapy. Use proper handling technique. Swallow whole. Do not crush, chew, or cut in half. $ Given 03/23/2024 8:52 AM [employer] CLE[employer] SALVAGER 100 mg $ Given 03/22/2024 8:40 AM [employer] CLE[employer] SALVAGER 100 mg $ Given 03/21/2024 9:10 AM [employer]ER 100 mg documented in this encounter Active and Recently Administered Medications Times are shown in [employer]VAGER. Scheduled Medication Order 03/21/2024 03/22/2024 03/23/2024 0.9% NaCl injection 3 mL(Linked Group 1) 3 mL, Intracatheter, EVERY 8 HOURS, First dose on Mon03/13/24 at 2215, Until Discontinued, Flush peripheral IV catheter with 3 mL of normal saline every 8 hours. 0507 ($ Given - Provider: Bassam Rodriguez RN)0908 ($ Given - Provider: Mey Jo RN)2134 ($ Given - Provider: Miriam Lu, Gaurang Nurse) 0613 (Not Administered - Provider: Miriam Lu, Gaurang Nurse - Reason: Patient sleeping)1230 (Canceled Entry - Provider: Zach Johnson RN)2030 ($ Given - Provider: Steffi Deluna, RN) 0600 (Canceled Entry - Provider: Steffi Deluna, RN)0853 ($ Given - Provider: Mey Jo RN) allopurinol (Zyloprim) tablet 300 mg 300 mg, Oral, DAILY AFTER BREAKFAST, First dose on Mon03/20/24 at 0915, Until Discontinued 09 ($ Given - Provider: Mey Jo RN) 0838 ($ Given - Provider: Zach Johnson RN) 0852 ($ Given - Provider: Mey Jo RN) apixaban (Eliquis) tablet 2.5 mg 2.5 mg, Oral, 2 TIMES DAILY, First dose (after last modification) on 03/16/24 at 2100, Until Discontinued 09 ($ Given - Provider: Mey Jo RN)2118 ($ Given - Provider: Miriam Lu, Gaurang Nurse) 0838 ($ Given - Provider: Zach Johnson, KEVIN)2030 ($ Given - Provider: Steffi Deluna RN) 0852 ($ Given - Provider: Mey Jo RN) decitabine (Dacogen) 45 mg in 0.9% NaCl IV 119 mL infusion (COMPLETED) 45 mg (rounded from 44.8 mg = 20 mg/m2 ? 2.24 m2 Treatment Plan BSA from Recorded weight), at 119 mL/hr, Administer over 60 Minutes, Intravenous, ONCE, 1 dose, On Yas 03/21/24 at 1300, WASTE DISPOSAL INSTRUCTIONS: Chemo Bin Disposal required. 1324 ($ New Bag/Syringe - Provider: Mey Jo RN)1415 (Stopped - Provider: Mey Jo RN)1416 (Stopped - Provider: Mey Jo RN)1427 (Stopped - Provider: Mey Jo RN) decitabine (Dacogen) 45 mg in 0.9% NaCl IV 119 mL infusion (COMPLETED) 45 mg (rounded from 44.8 mg = 20 mg/m2 ? 2.24 m2 Treatment Plan BSA from Recorded weight), at 119 mL/hr, Administer over 60 Minutes, Intravenous, ONCE, 1 dose, On Mon03/22/24 at 1300, WASTE DISPOSAL INSTRUCTIONS: Chemo Bin Disposal required. 1202 ($ New Bag/Syringe - Provider: Zach Johnson RN)1307 (Stopped - Provider: Zach Johnson RN) decitabine (Dacogen) 45 mg in 0.9% NaCl IV 119 mL infusion (COMPLETED) 45 mg (rounded from 44.8 mg = 20 mg/m2 ? 2.24 m2 Treatment Plan BSA from Recorded weight), at 119 mL/hr, Administer over 60 Minutes, Intravenous, ONCE, 1 dose, On Mon03/23/24 at 1100, WASTE DISPOSAL INSTRUCTIONS: Chemo Bin Disposal required. 1125 ($ New Bag/Syringe - Provider: Mey Jo RN)1234 (Stopped - Provider: Mey Jo RN) dilTIAZem coated beads 24hr (Cardizem CD) capsule 120 mg 120 mg, Oral, DAILY, First dose on Yas 03/14/24 at 0900, Until Discontinued, Do not crush or chew. 0908 ($ Given - Provider: Mey Jo RN) 0838 ($ Given - Provider: Zach Johnson RN) 0851 ($ Given - Provider: Mey Jo RN) levoFLOXacin (Levaquin) tablet 500 mg 500 mg, Oral, EVERY 24 HOURS, First dose on Mon03/13/24 at 2345, Until Discontinued, Administer at least 2 hours before or 2 hours after antacids, sucralfate, metals (eg, iron, zinc), multivitamin preparations, tube feeds, Indication for anti-infective therapy: Chronic prophylaxis 0908 ($ Given - Provider: Mey Jo RN) 0838 ($ Given - Provider: Zach Johnson RN) 0851 ($ Given - Provider: Mey Jo RN) magnesium oxide (Mag-Ox) tablet 400 mg 400 mg, Oral, 2 TIMES DAILY, 6 doses, First dose on Mon03/23/24 at 0730, Last dose on Mon03/25/24 at 1800 0852 ($ Given - Provider: Mey Jo RN) pantoprazole EC (Protonix) tablet 40 mg 40 mg, Oral, DAILY, First dose on Mon03/14/24 at 0900, Until Discontinued, Do not crush, chew, or cut in half. 0908 ($ Given - Provider: Mey Jo RN) 0838 ($ Given - Provider: Zach Johnson RN) 0852 ($ Given - Provider: Mey Jo RN) polyethylene glycol 3350 (Miralax) packet 17 g 17 g, Oral, DAILY, First dose on Mon03/15/24 at 2145, Until Discontinued, Mix in 8 ounces of water, juice, soda, coffee or tea prior to administration 0908 ($ Given - Provider: Mey Jo RN) 0838 ($ Given - Provider: Zach Johnson RN) 0853 ($ Given - Provider: Mey Jo RN) posaconazole (Noxafil) tablet 300 mg 300 mg, Oral, DAILY WITH DINNER, First dose on Mon03/13/24 at 2345, Until Discontinued, Swallow whole. Do not crush, chew, or cut in half., Indication for anti-infective therapy: Chronic prophylaxis 1651 ($ Given - Provider: Mey Jo RN) 1707 ($ Given - Provider: Zach Johnson RN) potassium - sodium phosphates (Phos-Nak) powder 1 packet 1 packet, Oral, 3 TIMES DAILY WITH MEALS, 9 doses, First dose on Mon03/23/24 at 0800, Last dose on Mon03/25/24 at 1800, Mix contents of packet in 6 to 8 ounces of water and drink, may taste better if cold Contains Phos 8 mmol, K+ 7 mEq, Na 7 mEq per packet 0851 ($ Given - Provider: Mey Jo RN)1120 ($ Given - Provider: Mey Jo RN) senna (Senokot) tablet 17.2 mg 17.2 mg, Oral, DAILY, First dose (after last modification) on Mon03/19/24 at 0900, Until Discontinued 0908 ($ Given - Provider: Mey Jo RN) 0838 ($ Given - Provider: Zach Johnson, RN) 0851 ($ Given - Provider: Mey Jo RN) valACYclovir (Valtrex) tablet 500 mg 500 mg, Oral, 2 TIMES DAILY, First dose on Mon03/13/24 at 2345, Until Discontinued, Indication for anti-infective therapy: Chronic prophylaxis 0908 ($ Given - Provider: Mey Jo RN)2116 ($ Given - Provider: Miriam Lu, Graduate Nurse) 0838 ($ Given - Provider: Zach Johnson, KEVIN)2030 ($ Given - Provider: Steffi Deluna RN) 0852 ($ Given - Provider: Mey Jo RN) venetoclax (Venclexta) tablet 100 mg 100 mg, Oral, DAILY WITH FOOD, First dose on Mon03/19/24 at 1800, Until Discontinued, Caution chemotherapy. Use proper handling technique. Swallow whole. Do not crush, chew, or cut in half. 0910 ($ Given - Provider: Mey Jo RN) 0840 ($ Given - Provider: Zach Johnson RN) 0852 ($ Given - Provider: Mey Jo RN) Continuous Medication Order 03/21/2024 03/22/2024 03/23/2024 lactated ringers infusion at 50 mL/hr, Intravenous, CONTINUOUS, Starting on Mon03/20/24 at 1000, Until 03/23/24 at 1456 0332 (Rate Change - Provider: Bassam Rodriguez RN)0335 (Rate Change - Provider: Bassam Rodriguez RN)0339 (Paused - Provider: Bassam Rodriguez RN)0346 (Paused - Provider: Bassam Rodriguez, KEVIN)0346 (Restarted - Provider: Bassam Rodriguez, KEVIN)0350 ($ New Bag/Syringe - Provider: Bassam Rodriguez RN)0350 (Current Rate - Provider: Bassam Rodriguez, KEVIN)0351 (Current Rate - Provider: Bassam Rodriguez RN)0907 (Paused - Provider: Mey Jo RN)0907 (Rate Change - Provider: Mey Jo RN)0909 (Canceled Entry - Provider: Mey Jo RN)1651 ($ New Bag/Syringe - Provider: Mey Jo RN)2133 (Restarted - Provider: Miriam Lu, Graduate Nurse - Comment: initial channel no longer working) 1035 (Rate Change - Provider: Zach Johnson, KEVIN) 0647 ($ New Bag/Syringe - Provider: Steffi Deluna RN) PRN Medication Order 03/21/2024 03/22/2024 03/23/2024 0.9% NaCl injection 1-10 mL(Linked Group 1) 1-10 mL, Intracatheter, PRN, Other, peripheral line flush, Starting on 03/13/24 at 2141, Until 03/23/24 at 1456, Flush peripheral IV catheter with 1-10 mL of normal saline before and after medications and prn to clear blood from the line or to verify patency. acetaminophen (Tylenol) tablet 650 mg 650 mg, Oral, EVERY 4 HOURS PRN, Fever, Mild Pain, Headache, Starting on Yas 03/21/24 at 1348, Until 03/23/24 at 1456, Patient preference for lesser PRN pain meds may be honored when the patient requests a less strong medication, a lower dose, or a less intrusive route of administration when the lesser drug, dose and route have been ordered for the patient. This patient request must be documented in the MAR. If both oral and IV options are ordered for the same pain severity, give oral first unless patient cannot tolerate oral intake ondansetron (disintegrating) (Zofran ODT) tablet 8 mg 8 mg, Oral, 2 TIMES DAILY PRN, Nausea/Vomiting, Starting on 03/19/24 at 1456, Until 03/23/24 at 1456, Use as alternate to prochlorperazine (COMPAZINE) for breakthrough nausea. Use if no IV access. Dissolved orally on tongue prochlorperazine (Compazine) injection 10 mg 10 mg, Intravenous, EVERY 6 HOURS PRN, Nausea/Vomiting, Starting on 03/19/24 at 1456, Until 03/23/24 at 1456, First line for breakthrough nausea. Max intravenous rate = 5 mg/min prochlorperazine (Compazine) tablet 10 mg 10 mg, Oral, EVERY 6 HOURS PRN, Nausea/Vomiting, Starting on Mon03/19/24 at 1456, Until 03/23/24 at 1456, First line for breakthrough nausea. Use if no IV access. Linked Groups Order Group 1: SALINE LOCK, INSERT AND MAINTAIN (CANCELED) Routine, CONTINUOUS, Starting on Mon03/13/24 at 2145, Until Specified, New collection And 0.9% NaCl injection 3 mLJump to med 3 mL, Intracatheter, EVERY 8 HOURS, First dose on Mon03/13/24 at 2215, Until Discontinued, Flush peripheral IV catheter with 3 mL of normal saline every 8 hours. And 0.9% NaCl injection 1-10 mLJump to med 1-10 mL, Intracatheter, PRN, Other, peripheral line flush, Starting on Mon03/13/24 at 2141, Until 03/23/24 at 1456, Flush peripheral IV catheter with 1-10 mL of normal saline before and after medications and prn to clear blood from the line or to verify patency. documented in this encounter Care Teams Tennis Ball Coverer Hand Relationship Specialty Start Date End Date Timothy Banks MD [address] [place] [address] PCP - General 10/19/18 documented as of this encounter
--- OUTSIDE RECORDS SUMMARY | 2024-04-09 17:26 | XMS_ITS | Encounter Summary ---
Author Organization [facility] Address [address] [facility] [place] [address] Care Team Providers Care Commercial Producer Name Role Phone Timothy Banks MD Primary Care Provider [phone] Encounter Details Date Type Department Care Team (Late Contact Info) Description 03/04/2024 Orders Only [facility] [address] [place] [address] Cindy Garcia MD [address] [place], [place] [id number] MDS (myelodysplastic syndrome) (HCC) Social History Tobacco Use Types Packs/Day Years Used Date Smoking Tobacco: Never Assessed Sex and Gender Information Value Date Recorded Sex Assigned at Male 03/05/2024 8:04 AM GUNCOTTON PACKER Gender Identity Male 03/05/2024 8:04 AM GUNCOTTON PACKER Sexual Orientation Straight 03/05/2024 8: 04 AM GUNCOTTON PACKER documented as of this encounter Progress Notes * Cindy Garcia MD - 03/04/2024 3:22 PM CST [email or web address] OTTON PACKER documented in this encounter Plan of Treatment Upcoming Encounters Date Type Department Care Team (Late Contact Info) Description 04/11/2024 8:00 AM GUNCOTTON PACKER Hospital Encounter [facility] IVR [address] [place] [phone] Cindy Garcia MD [address] [place] [address] 04/15/2024 8:30 AM GUNCOTTON PACKER Hospital Encounter [facility] [address] [place] [phone] 04/16/2024 9:00 AM GUNCOTTON PACKER Hospital Encounter [facility] [address] [place] [phone] 04/17/2024 8:30 AM GUNCOTTON PACKER Appointment [facility] [address] [place] [phone] 04/18/2024 9:30 AM GUNCOTTON PACKER Appointment [facility] [address] [place] [phone] 04/18/2024 10:30 AM GUNCOTTON PACKER Office Visit [facility] - Hematology/Oncology [address] [place] [phone] Cindy Garcia MD [address] [place] [phone] 04/19/2024 9:00 AM GUNCOTTON PACKER Appointment [facility] [address] [place] [phone] 05/13/2024 9:00 AM GUNCOTTON PACKER Appointment [facility] [address] [place] [phone] Scheduled Orders Name Type Priority Associated Diagnoses Orde r Schedule CBC W/ DIFFERENTIAL Lab Routine MDS (myelodysplastic syndrome) ([facility]) 1 Occurrences starting 03/04/2024 until 03/29/2025 COMPREHENSIVE METABOLIC PANEL Lab Routine MDS (myelodysplastic syndrome) ([facility]) 1 Occurrences starting 03/04/2024 until 03/29/2025 VITAMIN B12 Lab Routine MDS (myelodysplastic syndrome) ([facility]) 1 Occurrences starting 03/04/2024 until 03/29/2025 FOLATE Lab Routine MDS (myelodysplastic syndrome) ([facility]) 1 Occurrences starting 03/04/2024 until 03/29/2025 TSH REFLEX FREE T4 Lab Routine MDS (myelodysplastic syndrome) ([facility]) 1 Occurrences starting 03/04/2024 until 02/27/2025 COPPER BLOOD Lab Routine MDS (myelodysplastic syndrome) ([facility]) 1 Occurrences starting 03/04/2024 until 03/29/2025 ZINC BLOOD Lab Routine MDS (myelodysplastic syndrome) (HCC) 1 Occurrences starting 03/04/2024 until 03/29/2025 HIV-1 HIV-2 ANTIBODY + HIV P24 AG PANEL (New on 08/24) Lab Routine MDS (myelodysplastic syndrome) (HCC) 1 Occurrences starting 03/04/2024 until 02/27/2025 HEPATITIS C ANTIBODY Lab Routine MDS (myelodysplastic syndrome) (HCC) 1 Occurrences starting 03/04/2024 until 03/29/2025 HEPATITIS B SURFACE ANTIBODY Lab Routine MDS (myelodysplastic syndrome) (HCC) 1 Occurrences starting 03/04/2024 until 03/29/2025 HEPATITIS B CORE ANTIBODY TOTAL Lab Routine MDS (myelodysplastic syndrome) (HCC) 1 Occurrences starting 03/04/2024 until 03/29/2025 documented as of this encounter Results * CYTOMEGALOVIRUS ANTIBODY IGG BLOOD (03/04/2024 4:13 PM GUNCOTTON PACKER) [facility] Cytomegalovirus Antibody IgG <0.20 <=0.70 U/mL 03/05/2024 9:27 PM GUNCOTTON PACKER [employer] ([facility]) Comment: INTERPRETIVE INFORMATION: Cytomegalovirus Antibody, IgG ??0.59 [...] laboratory at the same time. Performed By: [facility] [address] [place] [address] Web Retailer: Uche Morley MD, PhD CLIA Number: [id number] Blood BLOOD SPECIMEN / Unknown Lab Venipuncture / Unknown 03/04/2024 4:13 PM GUNCOTTON PACKER 03/04/2024 4:23 PM GUNCOTTON PACKER Cindy Garcia MD LAB - CHEMISTRY CHELI MONREAL [employer] ([facility]) [address] [place] [address], [facility] documented in this encounter Visit Diagnoses Diagnosis MDS (myelodysplastic syndrome) (HCC)- Primary Myelodysplastic syndrome, unspecified documented in this encounter Care Teams Commercial Producer Relationship Specialty Start Date End Date Timothy Banks MD [address] [place] [address] PCP - General 10/19/18 documented as of this encounter
--- OUTSIDE RECORDS SUMMARY | 2024-04-09 17:27 | XMS_ITS | Encounter Summary ---
Author Organization [facility] Address [address] [place] [phone] Phone Care Team Providers Care Tawer Name Role Phone Unavailable Primary Care Provider Unavailabl e Encounter Details Date Type Department Care Team (Late st Contact Info) Description 05/03/2018 [facility] Encounter - [place] [address] Yaron Roach MD [address] [facility], [address] [facility] [place] [address] Social History Tobacco Use Types Packs/Day Years Used Date Smoking Tobacco: Never Assessed Sex and Gender Information Value Date Recorded Sex Assigned at Male 11/09/2019 9:17 AM MDT Gender Identity Male 11/09/2019 9:17 AM MDT Sexual Orientation Straight 11/04/2020 7: 26 AM MDT documented as of this encounter Plan of Treatment Not on file documented as of this encounter Procedures Procedure Name Priority Date/Time Associated Diagnosis Comments TOTAL PROTEIN W/ CREATININE, URINE, RANDOM Routine 05/03/2018 7:17 AM BUSINESS LAW PROFESSOR DPS CONVERSION - TEXT (FREE TEXT) RESULT Routine 05/03/2018 7:17 AM BUSINESS LAW PROFESSOR RENAL FUNCTION PANEL (RFP) Routine 05/03/2018 7:17 AM BUSINESS LAW PROFESSOR documented in this encounter Results * Conversion - Text (Free Text) Result (05/03/2018 7:17 AM BUSINESS LAW PROFESSOR) Specimen Status Report EXTERNAL LAB (NON-INTERFACE D) Comment: Geremias Abbrev RP10 Default Ambig Abbrev RP10 Default A hand-written panel/profile was received from your office. In accordance with the [facility] Ambiguous Test Code Policy dated October 2002, we have completed your order by using the closest currently or formerly recognized AMA panel. ??We have assigned Renal Panel (10), Test Code #[id number] to this request. ??If this is not the testing you wished to receive on this specimen, please [facility] to clarify the test order. ??We appreciate your business. 05/03/2018 7:17 AM BUSINESS LAW PROFESSOR 05/03/2018 Yaron Roach MD LAB BLOOD ORDERABLES Performing Organization Address [facility]/ZIP Co de Phone Number EXTERNAL LAB (NON-INTERFACED) * Total Protein w/ Creatinine, Random (05/03/2018 7:17 AM BUSINESS LAW PROFESSOR) Creatinine, Urine 133.1 Not Estab. mg/dL EXTERNAL LAB (NON-INTERFACE D) Protein, Urine 7.7 Not Estab. mg/dL EXTERNAL LAB (NON-INTERFACE D) Protein/Creatin ine, Urine 58 0 - 200 mg/g creat EXTERNAL LAB (NON-INTERFACE D) 05/03/2018 7:17 AM BUSINESS LAW PROFESSOR 05/03/2018 Yaron Roach MD LAB URINE ORDERABLES Performing Organization Address [facility]/ZIP Co de Phone Number EXTERNAL LAB (NON-INTERFACED) * (ABNORMAL) Renal Function Panel (05/03/2018 7:17 AM BUSINESS LAW PROFESSOR) Glucose, Serum/Plasma 113(H) 65 - 99 mg/dL EXTERNAL LAB (NON-INTERFACE D) Urea nitrogen, Serum/Plasma (BUN) 14 8 - 27 mg/dL EXTERNAL LAB (NON-INTERFACE D) Creatinine, Serum/Plasma 1.42(H) 0.76 - 1.27 mg/dL EXTERNAL LAB (NON-INTERFACE D) eGFR, non 49(L) >59 mL/min/1.7 3 EXTERNAL LAB (NON-INTERFACE D) eGFR, 56(L) >59 mL/min/1.7 3 EXTERNAL LAB (NON-INTERFACE D) Urea nitrogen/Creat inine, Serum/Plasma 10 10 - 24 EXTERNAL LAB (NON-INTERFACE D) Sodium, Serum/Plasma 144 134 - 144 mmol/L EXTERNAL LAB (NON-INTERFACE D) Potassium, Serum/Plasma 4.9 3.5 - 5.2 mmol/L EXTERNAL LAB (NON-INTERFACE D) Chloride, Serum/Plasma 105 96 - 106 mmol/L EXTERNAL LAB (NON-INTERFACE D) Carbon dioxide CO2), total, Serum/Plasma 23 20 - 29 mmol/L EXTERNAL LAB (NON-INTERFACE D) Calcium, Serum/Plasma 9.6 8.6 - 10.2 mg/dL EXTERNAL LAB (NON-INTERFACE D) Phosphate, Serum/Plasma 3.6 2.5 - 4.5 mg/dL EXTERNAL LAB (NON-INTERFACE D) Albumin, Serum/Plasma 4.3 3.5 - 4.8 g/dL EXTERNAL LAB (NON-INTERFACE D) 05/03/2018 7:17 AM BUSINESS LAW PROFESSOR 05/03/2018 Yaron Roach MD LAB BLOOD ORDERABLES EXTERNAL LAB (NON-INTERFACED) documented in this encounter Visit Diagnoses Not on filedocumented in this encounter
--- OUTSIDE RECORDS SUMMARY | 2024-04-09 17:27 | XMS_ITS | Encounter Summary ---
Author Organization [facility] Address [address] [place] [phone] Phone Care Team Providers Care Nut And Bolt Assembler Name Role Phone Unavailable Primary Care Provider Unavailabl e Encounter Details Date Type Department Care Team (Late st Contact Info) Description 12/26/2016 [facility] Encounter - Labs [place] [address] Yaron Roach MD [address] [facility] [facility] [place] [address] Social History Tobacco Use Types Packs/Day Years [...] Procedure Name Priority Date/Time Associated Diagnosis Comments RENAL FUNCTION PANEL (RFP) Routine 12/26/2016 11:30 AM CDT documented in this encounter Results * (ABNORMAL) Renal Function Panel (12/26/2016 11:30 AM CDT) Glucose, Serum/Plasma 107(H) 65 - 99 mg/dL EXTERNAL LAB Urea nitrogen, Serum/Plasma (BUN) 17 8 - 27 mg/dL EXTERNAL LAB Creatinine, Serum/Plasma 1.33(H) 0.76 - 1.27 mg/dL EXTERNAL LAB eGFR, non 53(L) >59 mL/min/1.7 3 EXTERNAL LAB eGFR, Serum/Plasma (CKD-EPI) 61 >59 mL/min/1.7 3 EXTERNAL LAB Urea nitrogen/Creat inine, Serum/Plasma 13 10 - 24 EXTERNAL LAB Sodium, Serum/Plasma 144 134 - 144 mmol/L EXTERNAL LAB Potassium, Serum/Plasma 4.9 3.5 - 5.2 mmol/L EXTERNAL LAB Chloride, Serum/Plasma 104 96 - 106 mmol/L EXTERNAL LAB Carbon dioxide CO2), total, Serum/Plasma 23 18 - 29 mmol/L EXTERNAL LAB Calcium, Serum/Plasma 8.9 8.6 - 10.2 mg/dL EXTERNAL LAB Phosphate, Serum/Plasma 2.1(L) 2.5 - 4.5 mg/dL EXTERNAL LAB Albumin, Serum/Plasma 4.5 3.5 - 4.8 g/dL EXTERNAL LAB 12/26/2016 11:3 0 AM CDT 12/26/2016 Yaron Roach MD LAB BLOOD ORDERABLES EXTERNAL LAB documented in this encounter Visit Diagnoses Not on filedocumented in this encounter
--- OUTSIDE RECORDS SUMMARY | 2024-04-09 17:27 | XMS_ITS | Encounter Summary ---
Author Organization [facility]a utiizzy Address [address] [place] [address] Phone Care Team Providers Care Running Instructor Name Role Phone Timothy Banks MD Primary Care Provider [phone] Encounter Details Date Type Department Care Team (Late st Contact Info) Description 05/24/2021 9:30 AM GREASE MAKER Office Visit [facility] Nephrology and Hypertension [address] [place] [address], [address] [place] [address] Yaron Roach MD [address] [facility], [address] [place] [address] Obstructive sleep apnea syndrome (Primary Dx); Stage 3a chronic kidney disease (CMS-HCC); Edema of lower extremity Social History Tobacco Use Types Packs/Day Years Used Date Smoking Tobacco: Never Smokeless Tobacco: Never Alcohol Use Standard Drinks/Week Comments Yes 0 (1 standard drink = 0.6 oz pur e alcohol) rare Sex and Gender Information Value Date Recorded Sex Assigned at Male 11/09/2019 9:17 AM MDT Gender Identity Male 11/09/2019 9:17 AM MDT Sexual Orientation Straight 11/04/2020 7: 26 AM MDT documented as of this encounter Last Filed Vital Signs Vital Sign Reading Time Taken Comments Blood Pressure 126/70 05/24/2021 9:36 AM GREASE MAKER Pulse 72 05/24/2021 9:36 AM GREASE MAKER Temperature 35.4 ??C (95.8 ??F) 05/24/2021 9:36 AM CS T Respiratory Rate - - Oxygen Saturation - - Inhaled Oxygen Concentration - - Weight 116 kg (256 lb) 05/24/2021 9:36 AM GREASE MAKER Height 188 cm (6' 2 ) 05/24/2021 9:36 AM GREASE MAKER Body Mass Index 32.87 05/24/2021 9:36 AM GREASE MAKER documented in this encounter Progress Notes * Yaron Roach MD - 05/24/2021 9:30 AM CST Russ Kern is a pleasant 75 y.o.male. Copy: John Ramirez M.D. Russ is a very pleasant gentleman who is here to follow for ckd. unclear etioilogy. stable for decades. no urinary issues. Avoiding excess protein. He has an appt with Dr Ramirez soon about the barretts esophagus and his dexilant (insurance is bugging him).. No more covid/ Takes an occasional furosemide if he has some swelling. No recent problems. Less than once a month The patient has a hiatal hernia. He is on a PPI for this. He had the beginnings of Fernandez's esophagus. he needs to stay on the ppi unless cleared by GI. The patient has a history of palpitations and a bundle branch block. He's never had a heart attack or stroke or heart failure. No recent heart issues. Using the cpap machine. 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 Past history: CKD, Hiatal hernia, heart disease, neuropathy, DVT's. Social history: he doesn't smoke and never did. He rarely drinks alcohol. Family history: mother father brother and sister all have dementia. No history of kidney disease inthe family. Allergies: none. ROS Constitutional: Negative except as above Skin: Negative except as above Pulmonary: Negative except as above Urologic: Negative except as above BP 126/70 Pulse 72 Temp 95.8 ??F (35.4 ??C) Ht 6' 2 (1.88 m) Wt 256 lb (116 kg) BMI 32.87 kg/m?? BSA 2.46 m?? WDWN male in NAD Skin No rash or sq nodules Head NCAT Neck No nodes, No TMG Lungs Clear to ausc Cor RRR no rub or gallop Abd BS+ nontender and soft. Ext trace edema, Psyche normal not depressed or anxious Recent Labs: 11/05/18 Vit d 36, Upro 79 05/07/2019 , Upro low Lab Results Component Value Date BUN 14 05/18/2021 CREATININE 1.35 (H) 05/18/2021 EGFRAA 59 (L) 05/18/2021 EGFRAA 52 (L) 11/04/2020 EGFRAA 60 04/30/2020 EGFR 51 (L) 05/18/2021 EGFR 45 (L) 11/04/2020 EGFR 52 (L) 04/30/2020 NA 145 (H) 05/18/2021 K 5.1 05/18/2021 CL 107 (H) 05/18/2021 CO2 23 05/18/2021 CA 9.3 05/18/2021 PHOSPHATE 3.4 05/18/2021 ALBUMIN 4.4 05/18/2021 GLUCOSE 119 (H) 05/18/2021 PROTCREATUR 59 05/18/2021 PTH 39 05/18/2021 PTH Comment 05/18/2021 VITD 31.0 04/30/2020 LDL 76 11/22/2017 HDL 40 04/30/2020 TRIG 99 04/30/2020 ALT 21 11/22/2017 WBC 4.2 05/18/2021 HGB 11.1 (L) 05/18/2021 PLT 295 05/18/2021 Impression: Russ has chronic kidney disease. Creat is stable. Etiology is unknown. He had been seen by Dr Laws at [facility] for years and was told that the etiology is unclear. To preserve renal function: Blood pressure this is good Cholesterol good in the past. I will leave this up to Dr Banks. VIANEY/ARB no protein nor dm nor HTN so no need for this since stable. Low protein diet PTH this is good. Stay hydrated No NSAIDs CO2 is okay He is mildly anemic. Slight. Seeing Dr Ramirez soon his BMI is too high. he should lose weight. 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 He is on a PPI. This medicine has been correlated with CKD but has not been proven to cause it. Butwith all meds, if he doens't need it he shouldn't take it. 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 he sees Dr Ramirez. Leave on PPI for now unless Dr Ramirez says it is okay. copy of note sent tohim. Thins stable on this so okay to continue. Plan drink plenty of fluid Lose weight RTC 6 months Diagnoses and all orders for this visit: Obstructive sleep apnea syndrome Stage 3a chronic kidney disease (CMS-HCC) Edema of lower extremity Body mass index is 32.87 kg/m??. Follow up plan to address BMI is lose weight. See above Diagnoses and all orders for this visit: Obstructive sleep apnea syndrome Stage 3a chronic kidney disease (CMS-HCC) Edema of lower extremity Body mass index is 32.87 kg/m??. Follow up plan to address BMI is lose weight. . See above Diagnoses and all orders for this visit: Obstructive sleep apnea syndrome Stage 3a chronic kidney disease (CMS-HCC) Edema of lower extremity Body mass index is 32.87 kg/m??. Follow up plan to address BMI is high. . See above Diagnoses and all orders for this visit: Obstructive sleep apnea syndrome Stage 3a chronic kidney disease (CMS-HCC) Edema of lower extremity Body mass index is 32.87 kg/m??. Follow up plan to address BMI is too high. See above. Assessment/Plan Diagnoses and all orders for this visit: Chronic kidney disease, stage 3 (moderate) - Renal Function Panel (RFP); Future - Total Protein w/ Creatinine, Urine, Random; Future Body mass index is 32.87 kg/m??. Follow up plan to address BMI is too high see above. documented in this encounter Plan of Treatment Not on file documented as of this encounter Procedures Procedure Name Priority Date/Time Associated Diagnosis Comments TOTAL PROTEIN W/ CREATININE, URINE, RANDOM Routine 11/15/2021 1:06 PM CDT Stage 3a chronic kidney disease (CMS-HCC) RENAL FUNCTION PANEL (RFP) Routine 11/15/2021 1:06 PM CDT Stage 3a chronic kidney disease (CMS-HCC) documented in this encounter Results * Total Protein w/ Creatinine, Urine, Random (11/15/2021 1:06 PM CDT) Creatinine, Urine 71.2 Not Estab. mg/dL [facility] 1 Protein, Urine 4.6 Not Estab. mg/dL [facility] 1 Protein/Creatin ine, Urine 65 0 - 200 mg/g creat [facility] 1 11/15/2021 1:06 PM CDT 11/14/2021 11:00 PM CDT Narrative [facility] - 11/16/2021 10:13 AM CDT Performed at: ??[address] ??[id number] Process Pumper: Francisco Javier Stewart PhD, Phone: ??[phone] Yaron Roach MD LAB URINE ORDERABLES [facility] 1 * (ABNORMAL) Renal Function Panel (RFP) (11/15/2021 1:06 PM CDT) Glucose, Serum/Plasma 107(H) 65 - 99 mg/dL [facility] 1 Urea nitrogen, Serum/Plasma (BUN) 17 8 - 27 mg/dL [facility] 1 Creatinine, Serum/Plasma 1.52(H) 0.76 - 1.27 mg/dL [facility] 1 Estimated Glomerular Filtration Rate (eGFR) 47(L) >59 mL/min/1.7 3 [facility] 1 Urea nitrogen/Creati nine, Serum/Plasma 11 10 - 24 [facility] 1 Sodium, Serum/Plasma 143 134 - 144 mmol/L [facility] 1 Potassium, Serum/Plasma 5.0 3.5 - 5.2 mmol/L [facility] 1 Chloride, Serum/Plasma 106 96 - 106 mmol/L [facility] 1 Carbon dioxide CO2), total, Serum/Plasma 23 20 - 29 mmol/L [facility] 1 Calcium, Serum/Plasma 9.2 8.6 - 10.2 mg/dL [facility] 1 Phosphate, Serum/Plasma 2.9 2.8 - 4.1 mg/dL [facility] 1 Albumin, Serum/Plasma 4.6 3.7 - 4.7 g/dL [facility] 1 Blood 11/15/2021 1:06 PM CDT 11/14/2021 11:00 PM CDT Narrative [facility] - 11/16/2021 10:13 AM CDT Performed at: ??[address] [facility] [address], [place], [place] ??[id number] Process Pumper: Francisco Javier Stewart PhD, Phone: ??[phone] Yaron Roach MD LAB BLOOD ORDERABLES [facility] 1 documented in this encounter Visit Diagnoses Diagnosis Obstructive sleep apnea syndrome- Primary Stage 3a chronic kidney disease (CMS-HCC) Edema of lower extremity documented in this encounter Care Teams Running Instructor Relationship Specialty Start Date End Date Timothy Banks MD [address] [place] [address] PCP - General Family Medicine 11/14/18 documented as of this encounter
--- OUTSIDE RECORDS SUMMARY | 2024-04-09 17:27 | XMS_ITS | Encounter Summary ---
Author Organization [facility] utiizzy Address [address] [place] [address] Phone Care Team Providers Care Purchasing Agent Name Role Phone Timothy Banks MD Primary Care Provider [phone] Encounter Details Date Type Department Care Team (Late st Contact Info) Description 05/13/2020 9:45 AM CHANGE MANAGEMENT FACILITATOR Office Visit [facility] Nephrology and Hypertension [address] [place] [address], [address] [place] [address] Yaron Roach MD [address] [facility], [address] [place] [address] Obstructive sleep apnea syndrome (Primary Dx); Left ventricular hypertrophy; Stage 3a chronic kidney disease ([facility]-HCC) Social History Tobacco Use Types Packs/Day Years [...] Sign Reading Time Taken Comments Blood Pressure 128/78 05/13/2020 9:56 AM CHANGE MANAGEMENT FACILITATOR Pulse 72 05/13/2020 9:56 AM CHANGE MANAGEMENT FACILITATOR Temperature 35.7 ??C (96.2 ??F) 05/13/2020 9:56 AM CS T Respiratory Rate - - Oxygen Saturation - - Inhaled Oxygen Concentration - - Weight 113 kg (250 lb) 05/13/2020 9:56 AM CHANGE MANAGEMENT FACILITATOR Height 188 cm (6' 2 ) 05/13/2020 9:56 AM CHANGE MANAGEMENT FACILITATOR Body Mass Index 32.1 05/13/2020 9:56 AM CHANGE MANAGEMENT FACILITATOR documented in this encounter Progress Notes * Yaron Roach MD - 05/13/2020 9:45 AM CST Russ Kern is a pleasant 74 y.o.male. Copy: John Ramirez M.D. Russ is a very pleasant gentleman who is here to follow for ckd. unclear etioilogy. stable for decades. no urinary issues. Avoiding excess protein. He had the covid in march Takes an occasional furosemide if he has some swelling. No recent problems. The patient has a hiatal hernia. He is on a PPI for this. Before this he was on something else but can't remember the name of it. We discussed the correlation but not causal influence of PPIs and CKD. He has never had an ulcer but he had the beginnings of Fernandez's esophagus. he needs to stay on theppi unless cleared by GI. The patient has [...] above Urologic: Negative except as above BP 128/78 Pulse 72 Temp 96.2 ??F (35.7 ??C) Ht 6' 2 (1.88 m) Wt 250 lb (113 kg) BMI 32.10 kg/m?? BSA 2.43 m?? WDWN male in NAD Skin No rash or sq nodules Head NCAT Neck No nodes, No TMG Lungs Clear Cor RRR no rub or gallop Abd BS+ nontender and soft. Ext trace edema, Psyche normal not depressed or anxious Recent Labs: 11/05/18 Vit d 36, Upro 79 05/07/2019 , Upro low Lab Results Component Value Date BUN 17 04/30/2020 CREATININE 1.33 (H) 04/30/2020 EGFRAA 60 04/30/2020 EGFRAA 57 (L) 11/07/2019 EGFRAA 55 (L) 05/07/2019 EGFR 52 (L) 04/30/2020 EGFR 49 (L) 11/07/2019 EGFR 47 (L) 05/07/2019 NA 143 04/30/2020 K 4.9 04/30/2020 CL 104 04/30/2020 CO2 25 04/30/2020 CA 9.3 04/30/2020 PHOSPHATE 3.6 04/30/2020 ALBUMIN 4.3 04/30/2020 GLUCOSE 110 (H) 04/30/2020 PROTCREATUR 68 11/07/2019 PTH 36 04/30/2020 PTH Comment 04/30/2020 VITD 31.0 04/30/2020 LDL 76 11/22/2017 HDL 40 04/30/2020 TRIG 99 04/30/2020 ALT 21 11/22/2017 WBC 5.0 04/30/2020 HGB 12.8 (L) 04/30/2020 PLT 334 04/30/2020 Impression: Russ has chronic kidney disease. Creat is stable. Etiology is unknown. He had been seen by Dr Laws at [facility] for years and was told that the etiology is unclear. He does not have diabetes nor hypertension. However his evaluation was negative and because things have been so stable he did not have a biopsy. He was told to stay well hydrated. To preserve renal function: Blood pressure this is good Cholesterol good VIANEY/ARB no protein nor dm nor HTN so no need for this since stable. Low protein diet Vitamin D/PTH this is good. Stay well hydrated as you are No NSAIDs CO2 is okay his BMI is too high. he should lose weight. consider reimbursement analyst or seeing PCP. he had the pneumonia shot and the flu shot He is on a PPI. This medicine has been correlated with CKD but has not been proven to cause it. Butwith all meds, if he doens't need it he shouldn't take it. 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 he sees Dr Ramirez. Leave on PPI for now unless Dr Ramirez says it is okay[facility]. Patient has a living will/DPOA. The person whom this patient designates as the decision maker if the patient cannot make one is his Plan drink plenty of fluid Lose weight RTC 6 months Diagnoses and all orders for this visit: Obstructive sleep apnea syndrome Left ventricular hypertrophy Stage 3a chronic kidney disease (CMS-HCC) Body mass index is 32.1 kg/m??. Follow up plan to address BMI is high. . See above Diagnoses and all orders for this visit: Obstructive sleep apnea syndrome Left ventricular hypertrophy Stage 3a chronic kidney disease (CMS-HCC) Body mass index is 32.1 kg/m??. Follow up plan to address BMI is too high. See above. Assessment/Plan Diagnoses and all orders for this visit: Chronic kidney disease, stage 3 (moderate) - Renal Function Panel (RFP); Future - Total Protein w/ Creatinine, Urine, Random; Future Body mass index is 32.1 kg/m??. Follow up plan to address BMI is too high see above. documented in this encounter Plan of Treatment Not on file documented as of this encounter Procedures Procedure Name Priority Date/Time Associated Diagnosis Comments TOTAL PROTEIN W/ CREATININE, URINE, RANDOM Routine 11/04/2020 5:58 AM CDT Stage 3a chronic kidney disease ([facility]-HCC) CBC (INCLUDES DIFFERENTIAL/PLATEL ETS) Routine 11/04/2020 5:58 AM CDT Stage 3a chronic kidney disease ([facility]-HCC) RENAL FUNCTION PANEL (RFP) Routine 11/04/2020 5:58 AM CDT Stage 3a chronic kidney disease (CMS-HCC) PTH INTACT W/O CALCIUM, SERUM Routine 11/04/2020 5:58 AM CDT Stage 3a chronic kidney disease ([facility]-HCC) documented in this encounter Results * Total Protein w/ Creatinine, Urine, Random (11/04/2020 5:58 AM CDT) Creatinine, Urine 150.5 Not Estab. mg/dL [facility] 1 Protein, Urine 8.7 Not Estab. mg/dL [facility] 1 Protein/Creatin ine, Urine 58 0 - 200 mg/g creat [facility] 1 11/04/2020 5:58 AM CDT 2020 11:00 PM CDT Narrative [facility] - 11/05/2020 3:35 PM CDT Performed at: ??01 - [address] ??[id number] Financial Assistance Advisor: Francisco Javier Stewart PhD, Phone: ??[phone] Yaron Roach MD LAB URINE ORDERABLES [facility] * (ABNORMAL) Renal Function Panel (RFP) (11/04/2020 5:58 AM CDT) Glucose, Serum/Plasma 123(H) 65 - 99 mg/dL [facility] 1 Urea nitrogen, Serum/Plasma (BUN) 15 8 - 27 mg/dL [facility] 1 Creatinine, Serum/Plasma 1.49(H) 0.76 - 1.27 mg/dL [facility] 1 eGFR, non 45(L) >59 mL/min/1.7 3 [facility] 1 eGFR, 52(L) >59 mL/min/1.7 3 [facility] 1 Comment: [facility] currently reports eGFR in compliance with the current ??recommendations of the National Kidney Foundation. [facility] will ??update reporting as new guidelines are published from the NKF-ASN ??Task force. Urea nitrogen/Creati nine, Serum/Plasma 10 10 - 24 [facility] 1 Sodium, Serum/Plasma 142 134 - 144 mmol/L [facility] 1 Potassium, Serum/Plasma 4.7 3.5 - 5.2 mmol/L [facility] 1 Chloride, Serum/Plasma 105 96 - 106 mmol/L [facility] 1 Carbon dioxide CO2), total, Serum/Plasma 22 20 - 29 mmol/L [facility] 1 Calcium, Serum/Plasma 9.0 8.6 - 10.2 mg/dL [facility] 1 Phosphate, Serum/Plasma 3.1 2.8 - 4.1 mg/dL [facility] 1 Albumin, Serum/Plasma 4.4 3.7 - 4.7 g/dL [facility] 1 Blood 11/04/2020 5:58 AM CDT 2020 11:00 PM CDT Narrative [facility] - 11/05/2020 3:35 PM CDT Performed at: ??01 - [facility] [address], [place], [place] [id number] Financial Assistance Advisor: Francisco Javier Stewart PhD, Phone: ??[phone] Yaron Roach MD LAB BLOOD ORDERABLES [facility] * PTH Intact w/o Calcium, Serum (11/04/2020 5:58 AM CDT) PTH, Intact, Serum/Plasma 40 15 - 65 pg/mL [facility] 1 Parathyrin (PTH), intact, Serum/Plasma Comment [facility] 1 Comment: Interpretation ? Intact PTH ?Calcium ?(pg/mL) ?(mg/dL) Normal ?15 - 65 ? 8.6 - 10.2 Primary Hyperparathyroidism ? >65 ?>10.2 Secondary Hyperparathyroidism ? >65 ?<10.2 Non-Parathyroid Hypercalcemia ? <65 ?>10.2 Hypoparathyroidism ?<15 ?< 8.6 Non-Parathyroid Hypocalcemia ?15 - 65 ?< 8.6 Genetic analysis report . [facility] 2 Blood 11/04/2020 5:58 AM CDT 2020 11:00 PM CDT Narrative [facility] - 11/05/2020 3:35 PM CDT Performed at: ??01 - [facility] [address], [place], [place] ??[id number] Financial Assistance Advisor: Francisco Javier Stewart PhD, Phone: ??[phone] Performed at: ??02 - [facility] [address] [place], [place] ??[id number] Financial Assistance Advisor: Cinthya Roper [facility], Phone: ??[phone] Yaron Roach MD LAB BLOOD ORDERABLES [facility] 2 * (ABNORMAL) CBC (includes Differential/Platelets) (11/04/2020 5:58 AM CDT) Leukocytes, Blood 4.4 3.4 - 10.8 x10E3/uL [facility] 1 Erythrocytes (RBC) 4.26 4.14 - 5.80 x10E6/uL [facility] 1 Hemoglobin (HGB) 11.7(L) 13.0 - 17.7 g/dL [facility] 1 Hematocrit (HCT) 37.5 37.5 - 51.0 % [facility] 1 MCV 88 79 - 97 fL [facility] 1 MCH 27.5 26.6 - 33.0 pg [facility] 1 MCHC 31.2(L) 31.5 - 35.7 g/dL [facility] 1 Erythrocyte Distribution Width (RDW) 14.5 11.6 - 15.4 % [facility] 1 Platelets, Blood 311 150 - 450 x10E3/uL [facility] 1 Neutrophils/100 leukocytes, Blood 61 Not Estab. % [facility] 1 Lymphocytes/100 leukocytes, Blood 22 Not Estab. % [facility] 1 Monocytes/100 leukocytes, Blood 13 Not Estab. % [facility] 1 Eosinophils/100 leukocytes, Blood 3 Not Estab. % [facility] 1 Basophils/100 leukocytes, Blood 1 Not Estab. % [facility] 1 Neutrophils, Blood 2.7 1.4 - 7.0 x10E3/uL [facility] 1 Lymphocytes, Blood 1.0 0.7 - 3.1 x10E3/uL [facility] 1 Monocytes, Blood 0.6 0.1 - 0.9 x10E3/uL [facility] 1 Eosinophils, Blood 0.1 0.0 - 0.4 x10E3/uL [facility] 1 Basophils, Blood 0.0 0.0 - 0.2 x10E3/uL [facility] 1 Immature granulocytes/100 leukocytes, Blood 0 Not Estab. % [facility] 1 Immature granulocytes, Blood 0.0 0.0 - 0.1 x10E3/uL [facility] 1 Blood 11/04/2020 5:58 AM CDT 2020 11:00 PM CDT Narrative [facility] - 11/05/2020 3:35 PM CDT Performed at: ??01 - [facility] [address] ??[id number] Financial Assistance Advisor: Francisco Javier Stewart PhD, Phone: ??[phone] Yaron Roach MD LAB BLOOD ORDERABLES [facility] documented in this encounter Visit Diagnoses Diagnosis Obstructive sleep apnea syndrome- Primary Left ventricular hypertrophy Stage 3a chronic kidney disease (CMS-HCC) documented in this encounter Care Teams Purchasing Agent Relationship Specialty Start Date End Date Timothy Banks MD [address] [place] [address] PCP - General Family Medicine 11/14/18 documented as of this encounter
--- OUTSIDE RECORDS SUMMARY | 2024-04-09 17:27 | XMS_ITS | Encounter Summary ---
Author Organization [facility] Berta valentine Address [address] [place] [address] Phone Care Team Providers Care Hospice Volunteer Name Role Phone Unavailable Primary Care Provider Unavailabl e Encounter Details Date Type Department Care Team (Late st Contact Info) Description 12/27/2017 Legacy Encounter - Labs HIST[place] [address] Yaron Roach MD [address] [facility], [address] [facility] [place] [address] Social History Tobacco Use Types Packs/Day Years [...] TOTAL PROTEIN W/ CREATININE, URINE, RANDOM Routine 12/27/2017 8:14 AM CDT RENAL FUNCTION PANEL (RFP) Routine 12/27/2017 8:14 AM CDT documented in this encounter Results * Total Protein w/ Creatinine, Random (12/27/2017 8:14 AM CDT) Creatinine, Urine 104.5 Not Estab. mg/dL EXTER[facility] (NON-INTERFACE D) Protein, Urine 6.2 Not Estab. mg/dL [facility] (NON-INTERFACE D) Protein/Creatin ine, Urine 59 0 - 200 mg/g creat EXTERNAL LAB (NON-INTERFACE D) 12/27/2017 8:14 AM CDT 12/27/2017 Yaron Roach MD LAB URINE ORDERABLES EXTERNAL [facility] (NON-INTERFACED) * (ABNORMAL) Renal Function Panel (12/27/2017 8:14 AM CDT) Glucose, Serum/Plasma 93 65 - 99 mg/dL EXTER[facility] (NON-INTERFACE D) Urea nitrogen, Serum/Plasma (BUN) 16 8 - 27 mg/dL [facility] (NON-INTERFACE D) Creatinine, Serum/Plasma 1.64(H) 0.76 - 1.27 mg/dL EXTERNAL [facility] (NON-INTERFACE D) eGFR, non 41(L) >59 mL/min/1.7 3 EXTERNAL LAB (NON-INTERFACE D) eGFR, 47(L) >59 mL/min/1.7 3 EXTERNAL LAB (NON-INTERFACE D) Urea nitrogen/Creat inine, Serum/Plasma 10 10 - 24 EXTERNAL LAB (NON-INTERFACE D) Sodium, Serum/Plasma 143 134 - 144 mmol/L EXTERNAL LAB (NON-INTERFACE D) Potassium, Serum/Plasma 5.1 3.5 - 5.2 mmol/L EXTERNAL LAB (NON-INTERFACE D) Chloride, Serum/Plasma 104 96 - 106 mmol/L EXTERNAL LAB (NON-INTERFACE D) Carbon dioxide CO2), total, Serum/Plasma 21 20 - 29 mmol/L EXTERNAL LAB (NON-INTERFACE D) Calcium, Serum/Plasma 9.6 8.6 - 10.2 mg/dL EXTERNAL LAB (NON-INTERFACE D) Phosphate, Serum/Plasma 3.0 2.5 - 4.5 mg/dL EXTERNAL LAB (NON-INTERFACE D) Albumin, Serum/Plasma 4.7 3.5 - 4.8 g/dL EXTERNAL LAB (NON-INTERFACE D) 12/27/2017 8:14 AM CDT 12/27/2017 Yaron Roach MD LAB BLOOD ORDERABLES EXTERNAL LAB (NON-INTERFACED) documented in this encounter Visit Diagnoses Not on filedocumented in this encounter
--- OUTSIDE RECORDS SUMMARY | 2024-04-09 17:27 | XMS_ITS | Encounter Summary ---
Author Organization [facility] Address [address] [place] [address] Care Team Providers Care Preschool Assistant Name Role Phone Timothy Banks MD Primary Care Provider [phone] Cindy Garcia MD Unavailable Encounter Details Date Type Department Care Team (Late st Contact Info) Description 09/28/2023 Lab Requisition [facility] - DermPath Lab [address] [facility], [place] [phone] Timothy Banks MD [address] [place] [phone] Social History Tobacco Use Types Packs/Day Years Used Date Smoking Tobacco: Never Assessed Sex and Gender Information Value Date Recorded Sex Assigned at Male 03/05/2024 8:04 AM .NET PROGRAMMER Gender Identity Male 03/05/2024 8:04 AM .NET PROGRAMMER Sexual Orientation Straight 03/05/2024 8: 04 AM .NET PROGRAMMER documented as of this encounter Plan of Treatment Upcoming Encounters Date Type Department Care Team (Late st Contact Info) Description 04/11/2024 8:00 AM .NET PROGRAMMER Hospital Encounter [facility] IVR [address] [place] [phone] Cindy Garcia MD [address] [place], [place] [phone] 04/15/2024 8:30 AM .NET PROGRAMMER Hospital Encounter [facility] INF[facility]ION C[facility] [address] [place] [address] 04/16/2024 9:00 AM .NET PROGRAMMER Hospital Encounter [facility] [address] [place] [address] 04/17/2024 8:30 AM .NET PROGRAMMER Appointment [facility] [address] [place] [address] 04/18/2024 9:30 AM .NET PROGRAMMER Appointment [facility] IN[facility] [address] [place] [address] 04/18/2024 10:30 AM .NET PROGRAMMER Office Visit [facility] - Hematology/Oncology [address] [place] [phone] Cindy Garcia MD [address] [place] [address] 04/19/2024 9:00 AM .NET PROGRAMMER Appointment [facility] [address] [place] [address] 05/13/2024 9:00 AM .NET PROGRAMMER Appointment [facility] [address] [place] [address] documented as of this encounter Procedures Procedure Name Priority Date/Time Associated Diagnosis Comments DERMATOPATHOLOGY Routine 09/27/2023 12:0 0 AM CDT documented in this encounter Results * DERMATOPATHOLOGY (09/27/2023 12:00 AM CDT) Case Report Dermatopathology Report ? Case: [id number] ? Authorizing Provider: ??Timothy Banks MD ? Collected: ? 09/27/2023 12:00 AM ? Ordering Location: ? [facility] - ??Received: ?09/28/2023 10:46 AM ? DermPath Lab ? Pathologist: ? Kerry Pringle MD ? Specimens: ?? A) - Skin, left neck ? B) - Skin, left axilla ? 4 12:35 PM CDT DERMATOPATHOLOGY LABORATORY Final Diagnosis Specimen A. SKIN, left neck: SEBORRHEIC KERATOSIS, IRRITATED AND INFLAMED (L82.0) PRESENT AT MARGIN Specimen B. SKIN, left axilla: PIGMENTED SEBORRHEIC KERATOSIS (L82.1) PRESENT AT MARGIN 4 12:35 PM CDT DERMATOPATHOLOGY LABORATORY Clinical History A-B: Changing lesion 4 12:35 PM CDT DERMATOPATHOLOGY LABORATORY Gross Description Specimen A: Received is one formalin filled container labeled with the patient's name and designated left neck. The specimen consists of a shave biopsy measuring [id number] mm. Jar 0. Specimen B: Received is [...] cassette 2. Jar 0. 4 12:35 PM T DERMATOPATHOLOGY LABORATORY Microscopic Description Specimen A. SKIN, [...] margin of the specimen. 4 12:35 PM T DERMATOPATHOLOGY LABORATORY Disclaimer An external and internal positive and negative controls are appropriate for the histochemical, immunohistochemical and immunofluorescence stain(s) in this case (if any), except where stated explicitly. The performance characteristics of the stain(s) cited in this report were developed and its performance characteristic determined by the Dermatopathology Laboratory at [facility], directed by Dr. Randall Pringle. These tests need not be, and therefore are not, approved by the [place] Food and Drug Administration. The tests are used for clinical purposes. Billing Codes Specimen Charges Stain Charges 12046 63243 1 1 4 12:35 PM CDT DERMATOPATHOLOGY LABORATORY Embedded Images 4 12:35 PM CDT DERMATOPATHOLOGY LABORATORY Pathology/Cytology TISSUE SPECIMEN FROM SKIN / Unknown 09/27/2023 09/28/2023 10:46 AM CDT Miscellaneous samples (specimen) TISSUE SPECIMEN FROM SKIN / Unknown 09/27/2023 09/28/2023 10:46 AM CDT Timothy Banks MD LAB - PATHOLOGY/CYTO LOGY ORDERABLES DERMATOPATHOLOGY LABORATORY [facility] - Department of Dermatology [facility] [address], [address] [phone] documented in this encounter Visit Diagnoses Not on filedocumented in this encounter Care Teams Preschool Assistant Relationship Specialty Start Date End Date Timothy Banks MD [address] [place] [phone] PCP - General 10/19/18 Cindy Garcia MD [address] [place] [address] Webbing [employer]/Oncologis t Hematology and Oncology 03/24/24 documented as of this encounter
--- OUTSIDE RECORDS SUMMARY | 2024-04-09 17:27 | XMS_ITS | Encounter Summary ---
Author Organization [facility] Address [address] [place] [phone] Phone Care Team Providers Care Ribbon Winder Name Role Phone Timothy Banks MD Primary Care Provider [phone] Encounter Details Date Type Department Care Team (Latest Contact Info) Description 05/17/2022 Travel Social History Tobacco Use Types Packs/Day Years Used Date Smoking Tobacco: Never Smokeless Tobacco: Never Alcohol Use Standard Drinks/Week Comments Yes 0 (1 standard drink = 0.6 oz pur e alcohol) rare Sex and Gender Information Value Date Recorded Sex Assigned at Male 11/09/2019 9:17 AM MDT Gender Identity Male 11/09/2019 9:17 AM MDT Sexual Orientation Straight 11/04/2020 7: 26 AM MDT COVID-19 Exposure Response Date Recorded In the last 10 days, have yo u been in contact with someone who was confirmed or suspected to have Coronavirus/COVID-19? No / Unsure 05/17/2022 9:00 AM COURTESY DRIVER documented as of this encounter Plan of Treatment Not on file documented as of this encounter Visit Diagnoses Not on filedocumented in this encounter Care Teams Ribbon Winder Relationship Specialty Start Date End Date Timothy Banks MD [address] [place] [phone] PCP - General Family Medicine 11/14/18 documented as of this encounter
--- OUTSIDE RECORDS SUMMARY | 2024-04-09 17:27 | XMS_ITS | Encounter Summary ---
Author Organization [facility] Address [address] [place] [address] Phone Care Team Providers Care Courtroom Reporter Name Role Phone Unavailable Primary Care Provider Unavailabl e Encounter Details Date Type Department Care Team (Late st Contact Info) Description 12/01/2016 [facility] Encounter - [place] [address] Yaron Roach MD [address] [facility], [address] [facility] [place] [address] Social History Tobacco Use Types Packs/Day Years [...] Diagnosis Comments RENAL FUNCTION PANEL (RFP) Routine 12/01/2016 11:19 AM CDT documented in this encounter Results * (ABNORMAL) Renal Function Panel (12/01/2016 11:19 AM CDT) Glucose, Serum/Plasma 99 65 - 99 mg/dL EXTERNAL LAB Urea nitrogen, Serum/Plasma (BUN) 16 8 - 27 mg/dL EXTERNAL LAB Creatinine, Serum/Plasma 1.88(H) 0.76 - 1.27 mg/dL EXTERNAL LAB eGFR, non 35(L) >59 mL/min/1.7 3 EXTERNAL LAB eGFR, Serum/Plasma (CKD-EPI) 40(L) >59 mL/min/1.7 3 EXTERNAL LAB Urea nitrogen/Creat inine, Serum/Plasma 9(L) 10 - 24 EXTERNAL LAB Sodium, Serum/Plasma 144 134 - 144 mmol/L EXTERNAL LAB Potassium, Serum/Plasma 5.2 3.5 - 5.2 mmol/L EXTERNAL LAB Chloride, Serum/Plasma 103 96 - 106 mmol/L EXTERNAL LAB Carbon dioxide CO2), total, Serum/Plasma 21 18 - 29 mmol/L EXTERNAL LAB Calcium, Serum/Plasma 9.7 8.6 - 10.2 mg/dL EXTERNAL LAB Phosphate, Serum/Plasma 2.9 2.5 - 4.5 mg/dL EXTERNAL LAB Albumin, Serum/Plasma 4.7 3.5 - 4.8 g/dL EXTERNAL LAB 12/01/2016 11:1 9 AM CDT 12/01/2016 Yaron Roach MD LAB BLOOD ORDERABLES EXTERNAL LAB documented in this encounter Visit Diagnoses Not on filedocumented in this encounter
--- OUTSIDE RECORDS SUMMARY | 2024-04-09 17:27 | XMS_ITS | Encounter Summary ---
Author Organization [facility] Address [address] [place] [address] Phone Care Team Providers Care Building Drafting Officer Name Role Phone Unavailable Primary Care Provider Unavailabl e Encounter Details Date Type Department Care Team (Late st Contact Info) Description 05/04/2017 [facility] Encounter - [place] [address] Yaron Roach MD [address] [facility], [address] [facility] [place] [address] Social History Tobacco Use Types Packs/Day Years [...] TOTAL PROTEIN W/ CREATININE, URINE, RANDOM Routine 05/04/2017 8:42 AM CARD PROCESSING CLERK RENAL FUNCTION PANEL (RFP) Routine 05/04/2017 8:42 AM CARD PROCESSING CLERK DIRECT LDL, SERUM Routine 05/04/2017 8:4 2 AM CARD PROCESSING CLERK ALT (SGPT), SERUM Routine 05/04/2017 8:4 2 AM CARD PROCESSING CLERK documented in this encounter Results * ALT (05/04/2017 8:42 AM CARD PROCESSING CLERK) Alanine Aminotransferase (ALT), Serum Plasma 25 0 - 44 IU/L EXTERNAL LAB 05/04/2017 8:42 AM CARD PROCESSING CLERK 05/04/2017 Yaron Roach MD LAB BLOOD ORDERABLES Performing Organization Address City/[facility]/ZIP Co de Phone Number EXTERNAL LAB * Direct LDL (05/04/2017 8:42 AM CARD PROCESSING CLERK) Cholesterol, LDL, Serum/Plasma 96 0 - 99 mg/dL EXTERNAL LAB Comment: CANCELED EXTERNAL LAB Comment:Result canceled by [facility] ancillary. 05/04/2017 8:42 AM CARD PROCESSING CLERK 05/04/2017 Yaron Roach MD LAB BLOOD ORDERABLES Performing Organization Address [facility] Co de Phone Number EXTERNAL LAB * Total Protein w/ Creatinine, Random (05/04/2017 8:42 AM CARD PROCESSING CLERK) Creatinine, Urine 90.8 Not Estab. mg/dL EXTERNAL LAB Protein, Urine 6.2 Not Estab. mg/dL EXTERNAL LAB Protein/Creatin ine, Urine 68 0 - 200 mg/g creat EXTERNAL LAB 05/04/2017 8:42 AM CARD PROCESSING CLERK 05/04/2017 Yaron Roach MD LAB URINE ORDERABLES Performing Organization Address City/[facility] Co de Phone Number EXTERNAL LAB * (ABNORMAL) Renal Function Panel (05/04/2017 8:42 AM CARD PROCESSING CLERK) Glucose, Serum/Plasma 98 65 - 99 mg/dL EXTERNAL LAB Urea nitrogen, Serum/Plasma (BUN) 13 8 - 27 mg/dL EXTERNAL LAB Creatinine, Serum/Plasma 1.31(H) 0.76 - 1.27 mg/dL EXTERNAL LAB eGFR, non 54(L) >59 mL/min/1.7 3 EXTERNAL LAB eGFR, Serum/Plasma (CKD-EPI) 62 >59 mL/min/1.7 3 EXTERNAL LAB Urea nitrogen/Creat inine, Serum/Plasma 10 10 - 24 EXTERNAL LAB Sodium, Serum/Plasma 145(H) 134 - 144 mmol/L EXTERNAL LAB Potassium, Serum/Plasma 4.8 3.5 - 5.2 mmol/L EXTERNAL LAB Chloride, Serum/Plasma 104 96 - 106 mmol/L EXTERNAL LAB Carbon dioxide CO2), total, Serum/Plasma 25 18 - 29 mmol/L EXTERNAL LAB Calcium, Serum/Plasma 9.1 8.6 - 10.2 mg/dL EXTERNAL LAB Phosphate, Serum/Plasma 3.4 2.5 - 4.5 mg/dL EXTERNAL LAB Albumin, Serum/Plasma 4.7 3.5 - 4.8 g/dL EXTERNAL LAB 05/04/2017 8:42 AM CARD PROCESSING CLERK 05/04/2017 Yaron Roach MD LAB BLOOD ORDERABLES EXTERNAL LAB documented in this encounter Visit Diagnoses Not on filedocumented in this encounter
--- OUTSIDE RECORDS SUMMARY | 2024-04-09 17:27 | XMS_ITS | Encounter Summary ---
Author Organization [facility] Address [address] [place] [address] Phone Care Team Providers Care Wharf Tender Head Name Role Phone Timothy Banks MD Primary Care Provider [phone] Encounter Details Date Type Department Care Team (Late st Contact Info) Description 05/15/2019 9:45 AM GARAGE DOOR INSTALLER Office Visit [facility] Nephrology and Hypertension [address] [place] [address], [address] [place] [address] Yaron Roach MD [address] [facility], [address] [place] [address] Chronic kidney disease, stage 3 (moderate) (CMS-HCC) (Primary Dx); Edema of lower extremity Social History Tobacco [...] Sign Reading Time Taken Comments Blood Pressure 116/72 05/15/2019 10:00 AM GARAGE DOOR INSTALLER Pulse 84 05/15/2019 10:00 AM GARAGE DOOR INSTALLER Temperature 36.7 ??C (98.1 ??F) 05/15/2019 10:[address] Respiratory Rate - - Oxygen Saturation - - Inhaled Oxygen Concentration - - Weight 114 kg (252 lb) 05/15/2019 10:00 AM GARAGE DOOR INSTALLER Height 188 cm (6' 2 ) 05/15/2019 10:00 AM GARAGE DOOR INSTALLER Body Mass Index 32.35 05/15/2019 10:00 AM GARAGE DOOR INSTALLER documented in this encounter Progress Notes * Yaron Roach MD - 05/15/2019 9:45 AM CST Russ Kern is a pleasant 73 y.o.male. Copy: John Ramirez M.D. Russ is a very pleasant gentleman who is here to follow for ckd. unclear etioilogy. stable for Decades. no urinary issues. Avoiding excess protein. some nocturia. No change. Takes an occasional furosemide if he has some swelling. The patient has a hiatal hernia. He [...] heart attack or stroke or heart failure. 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 [...] above Urologic: Negative except as above BP 116/72 Pulse 84 Temp 98.1 ??F (36.7 ??C) Ht 6' 2 (1.88 m) Wt 252 lb (114 kg) BMI 32.35 kg/m?? BSA 2.44 m?? WDWN male in NAD Skin No rash Head NCAT Neck No nodes, No TMG Lungs Clear to Auscultation Cor RRR no rub or gallop Abd BS+ nontender and soft. Ext trace edema, Psyche normal not depressed or anxious Recent Labs: 11/05/18 Vit d 36, Upro 79 05/07/2019 , Upro low Lab Results Component Value Date EGFR 47 (L) 05/07/2019 CREATININE 1.44 (H) 05/07/2019 CREATININEUR 65.2 05/07/2019 CHOL 137 11/22/2017 LDL 76 11/22/2017 HDL 42 11/22/2017 TRIG 93 11/22/2017 GLUCOSE 117 (H) 05/07/2019 PTH 39 11/05/2018 HCT 38.3 11/05/2018 BUN 17 05/07/2019 NA 144 05/07/2019 K 5.1 05/07/2019 CL 104 05/07/2019 CO2 22 05/07/2019 ALBUMIN 4.3 05/07/2019 CA 9.2 05/07/2019 Impression: Russ has chronic kidney disease. Creat is stable. Etiology is unknown. He had been seen by Dr Laws at [facility] for years and was told that the [...] D/PTH this is good. Stay well hydrated No NSAIDs his BMI is too high. he should lose weight. consider leather colorer or seeing PCP. he had the pneumonia [...] [facility] is okay[facility]. [facility] has a living will/DPOA. The person whom this patient designates as the decision maker if the patient cannot make one is his Plan drink plenty of fluid Lose weight RTC 6 months Assessment/Plan Diagnoses and all orders for this visit: Chronic kidney disease, stage 3 (moderate) - Renal Function Panel (RFP); Future - Total Protein w/ Creatinine, Urine, Random; Future Body mass index is 32.35 kg/m??. Follow up plan to address BMI is too high see above. documented in this encounter Plan of Treatment Scheduled Orders Name Type Priority Associated Diagnoses Orde r Schedule PTH Intact w/o Calcium, Serum Lab Routine Chronic kidney disease, stage 3 (moderate) 1 Occurrences starting 05/15/2019 until 05/15/2020 Total Protein w/ Creatinine, Urine, Random Lab Routine Chronic kidney disease, stage 3 (moderate) 1 Occurrences starting 05/15/2019 until 05/15/2020 documented as of this encounter Procedures Procedure Name Priority Date/Time Associated Diagnosis Comments PTH, INTACT Routine 11/07/2019 6:00 AM CDT VITAMIN D, 25-HYDROXY, SERUM Routine 11/07/2019 6:00 AM CDT Chronic kidney disease, stage 3 (moderate) ([facility]) CBC (INCLUDES DIFFERENTIAL/PLATELE TS) Routine 11/07/2019 6:00 AM CDT Chronic kidney disease, stage 3 (moderate) ([facility]) RENAL FUNCTION PANEL (RFP) Routine 11/07/2019 6:00 AM CDT Chronic kidney disease, stage 3 (moderate) ([facility]) PROTEIN / CREATININE RATIO, URINE Routine 11/07/2019 6:00 AM CDT documented in this encounter Results * PTH, Intact (11/07/2019 6:00 AM CDT) PTH, Intact, Serum/Plasma 22 15 - 65 pg/mL [facility] 1 11/07/2019 6:00 AM CDT 11/06/2019 11:00 PM CDT Narrative [facility] - 11/08/2019 7:13 AM CDT Performed at: ??01 - [facility] [address] ??[id number] Supervisor Assembling: Francisco Javier Stewart PhD, Phone: ??[phone] Yaron oRach MD LAB BLOOD ORDERABLES [facility] * Protein / Creatinine Ratio, Urine (11/07/2019 6:00 AM CDT) Creatinine, Urine 125.2 Not Estab. mg/dL [facility] 1 Protein, Urine 8.5 Not Estab. mg/dL [facility] 1 Protein/Creatin ine, Urine 68 0 - 200 mg/g creat [facility] 1 11/07/2019 6:00 AM CDT 11/06/2019 11:00 PM CDT Narrative [facility] - 11/08/2019 7:13 AM CDT Performed at: ??01 - [facility] [address] ??[id number] Supervisor Assembling: Francisco Javier Stewart PhD, Phone: ??[phone] Yaron Roach MD LAB URINE ORDERABLES [facility] 1 * (ABNORMAL) Renal Function Panel (RFP) (11/07/2019 6:00 AM CDT) Pathologist [facility] Glucose, Serum/Plasma 100(H) 65 - 99 mg/dL [facility] 1 Urea nitrogen, Serum/Plasma (BUN) 19 8 - 27 mg/dL [facility] 1 Creatinine, Serum/Plasma 1.39(H) 0.76 - 1.27 mg/dL [facility] 1 eGFR, non 49(L) >59 mL/min/1.7 3 [facility] 1 eGFR, 57(L) >59 mL/min/1.7 3 [facility] 1 Urea nitrogen/Creat inine, Serum/Plasma 14 10 - 24 [facility] 1 Sodium, Serum/Plasma 143 134 - 144 mmol/L [facility] 1 Potassium, Serum/Plasma 4.9 3.5 - 5.2 mmol/L [facility] 1 Chloride, Serum/Plasma 104 96 - 106 mmol/L [facility] 1 Carbon dioxide CO2), total, Serum/Plasma 26 20 - 29 mmol/L [facility] 1 Calcium, Serum/Plasma 9.2 8.6 - 10.2 mg/dL [facility] 1 Phosphate, Serum/Plasma 3.5 2.8 - 4.1 mg/dL [facility] 1 Albumin, Serum/Plasma 4.6 3.7 - 4.7 g/dL [facility] 1 Blood 11/07/2019 6:00 AM CDT 11/06/2019 11:00 PM CDT Narrative [facility] - 11/08/2019 7:13 AM CDT Performed at: ??01 - [facility] [address] ??[id number] Supervisor Assembling: Francisco Javier Stewart PhD, Phone: ??[phone] Yaron Roach MD LAB BLOOD ORDERABLES Performing Organization Address [facility] de Phone Number [facility] 1 * Vitamin D, 25-Hydroxy, Serum (11/07/2019 6:00 AM CDT) Pathologist [facility] 25-Hydroxyvitami n D2+25-Hydroxyvit bautista D3, Serum/Plasma 37.0 30.0 - 100.0 ng/mL [facility] 1 Comment: Vitamin D deficiency has been defined by the [place] of [employer] and an Endocrine Society practice guideline as a level of serum 25-OH vitamin D less than 20 ng/mL (1,2). The Endocrine Society went on to further define vitamin D insufficiency as a level between 21 and 29 ng/mL (2). 1. IOM ([place] of [employer]). 2010. Dietary reference ?? intakes for calcium and D. Javier [place]: The ?? National Academies Press. 2. Imtiaz MF, Abiel NC, Luc MCKAY, et al. ?? Evaluation, treatment, and prevention of vitamin D ?? deficiency: an Endocrine Society clinical practice ?? guideline. JCEM. 2010; 96(7):1911-30. 11/07/2019 6:00 AM CDT 11/06/2019 11:00 PM CDT Narrative [facility] - 11/08/2019 7:13 AM CDT Performed at: ??01 - [facility] [address] ??[id number] Supervisor Assembling: Francisco Javier Stewart PhD, Phone: ??[phone] Yaron Roach MD LAB BLOOD ORDERABLES Performing Organization Address [facility] Co de Phone Number [facility] * (ABNORMAL) CBC (includes Differential/Platelets) (11/07/2019 6:00 AM CDT) [facility] Leukocytes, Blood 4.8 3.4 - 10.8 x10E3/uL [facility] 1 Erythrocytes (RBC) 4.31 4.14 - 5.80 x10E6/uL [facility] 1 Hemoglobin (HGB) 12.5(L) 13.0 - 17.7 g/dL [facility] 1 Hematocrit (HCT) 38.1 37.5 - 51.0 % [facility] 1 MCV 88 79 - 97 fL [facility] 1 MCH 29.0 26.6 - 33.0 pg [facility] 1 MCHC 32.8 31.5 - 35.7 g/dL [facility] 1 Erythrocyte Distribution Width (RDW) 13.5 11.6 - 15.4 % [facility] 1 Platelets, Blood 305 150 - 450 x10E3/uL [facility] 1 Neutrophils/100 leukocytes, Blood 54 Not Estab. % [facility] 1 Lymphocytes/100 leukocytes, Blood 27 Not Estab. % [facility] 1 Monocytes/100 leukocytes, Blood 14 Not Estab. % [facility] 1 Eosinophils/100 leukocytes, Blood 4 Not Estab. % [facility] 1 Basophils/100 leukocytes, Blood 1 Not Estab. % [facility] 1 Neutrophils, Blood 2.6 1.4 - 7.0 x10E3/uL [facility] 1 Lymphocytes, Blood 1.3 0.7 - 3.1 x10E3/uL [facility] 1 Monocytes, Blood 0.7 0.1 - 0.9 x10E3/uL [facility] 1 Eosinophils, Blood 0.2 0.0 - 0.4 x10E3/uL [facility] 1 Basophils, Blood 0.1 0.0 - 0.2 x10E3/uL [facility] 1 Immature granulocytes/100 leukocytes, Blood 0 Not Estab. % [facility] 1 Immature granulocytes, Blood 0.0 0.0 - 0.1 x10E3/uL [facility] 1 Blood 11/07/2019 6:00 AM CDT 11/06/2019 11:[address] [facility] - 11/08/2019 7:13 AM CDT Performed at: ??[address], [place] ??[id number] Supervisor Assembling: Francisco Javier Stewart PhD, Phone: ??[phone] Yaron Roach MD LAB BLOOD ORDERABLES [facility] 1 documented in this encounter Visit Diagnoses Diagnosis Chronic kidney disease, stage 3 (moderate)- Primary Edema of lower extremity documented in this encounter Care Teams Wharf Tender Head Relationship Specialty Start Date End Date Timothy Banks MD [address] [place] [phone] PCP - General Family Medicine 11/14/18 documented as of this encounter
--- OUTSIDE RECORDS SUMMARY | 2024-04-09 17:27 | XMS_ITS | Encounter Summary ---
Author Organization [facility] Address [address] [place] [address] Care Team Providers Care Lathe Puller Name Role Phone Timothy Banks MD Primary Care Provider [phone] Cindy Garcia MD Unavailable Encounter Details Date Type Department Care Team (Late st Contact Info) Description 02/13/2024 Lab Requisition [facility] - Pathology Lab [address] [place] [address] Rommel Dinh MD [address] [facility] [address] [place] [id number] Illness, unspecified Social History Tobacco Use Types Packs/Day Years Used Date Smoking Tobacco: Never Assessed Sex and Gender Information Value Date Recorded Sex Assigned at Male 03/05/2024 8:04 AM TANK BOTTOM ASSEMBLER Gender Identity Male 03/05/2024 8:04 AM TANK BOTTOM ASSEMBLER Sexual Orientation Straight 03/05/2024 8: 04 AM TANK BOTTOM ASSEMBLER documented as of this encounter Plan of Treatment Upcoming Encounters Date Type Department Care Team (Late st Contact Info) Description 04/11/2024 8:00 AM TANK BOTTOM ASSEMBLER Hospital Encounter [facility] [address] [place] [id number] Cindy Garcia MD [address] [place] [address] 04/15/2024 8:30 AM TANK BOTTOM ASSEMBLER Hospital Encounter [facility] [address] [place] [address] 04/16/2024 9:00 AM TANK BOTTOM ASSEMBLER Hospital Encounter [facility] [address] [place] [address] 04/17/2024 8:30 AM TANK BOTTOM ASSEMBLER Appointment [facility] [address] [place] [address] 04/18/2024 9:30 AM TANK BOTTOM ASSEMBLER Appointment [facility] [address] [place] [address] 04/18/2024 10:30 AM TANK BOTTOM ASSEMBLER Office Visit [facility] - Hematology/Oncology [address] [place] [phone] Cindy Garcia MD [address] [place] [address] 04/19/2024 9:00 AM TANK BOTTOM ASSEMBLER Appointment [facility] [address] [place] [address] 05/13/2024 9:00 AM TANK BOTTOM ASSEMBLER Appointment [facility] [address] [place] [address] documented as of this encounter Procedures Procedure Name Priority Date/Time Associated Diagnosis Comments BONE MARROW BIOPSY (STL) Routine 02/12/2024 9:20 AM TANK BOTTOM ASSEMBLER Illness, unspecified documented in this encounter Results * BONE MARROW BIOPSY (STL) (02/12/2024 9:20 AM TANK BOTTOM ASSEMBLER) Case Report Bone Marrow Patholog y Report ?Case: [id number] ? Authorizing Provider: ??Rommel Dinh ? Collected: ? 02/12/2024 09:20 AM ? MD Luke ? [facility] ??Received: ?02/13/2024 12:34 PM ? Pathology Lab ? Pathologist: ? Daniela Bronson MD ? Specimens: ?? A) - Bone Marrow Clot ? B) - Bone Marrow Core ? 02/14/2024 1:43 PM TANK BOTTOM ASSEMBLER [facility] Final Diagnosis Bone marrow, iliac crest, core biopsy, clot section, and aspirate: - Increased myeloblasts (up to 30% by morphology) with mild trilineage dyspoiesis involving a hypercellular bone marrow (70-80% cellular), see comment - Absent iron stores - Patchy and mild increase in reticulin fibrosis (MF-1) 02/14/2024 1:43 PM [facility] Comment The patient is a 78-year-old man with chronic leukopenia who was reportedly hospitalized in January for perforated diverticulitis during which he received Neupogen. The bone marrow is hypercellular for the patient's age and shows prominent myeloid immaturity including up to 30% blasts. It is not possible to distinguish a reactive/benign [...] effects of Neupogen and a high-grade myeloid neoplasm. 02/14/2024 1:43 PM [facility] Peripheral Smear Description The patient's CBC performed at the time of the bone marrow biopsy shows a white count of 1200/mcL, hemoglobin 13.8 g/dL, hematocrit 43.7%, MCV 89.2 fL, and a platelet count of 130,000/mcL. The white cell differential shows 71.6% lymphocytes, 18.9% neutrophils, 6.9% monocytes, 1.7% eosinophils, and 0.9% basophils. Review of the peripheral blood smear confirms the CBC data. The patient is leukopenic. A relative lymphocytosis is present. Occasional atypical lymphocytes are noted which show convoluted nuclei. Circulating blasts are identified which are small to intermediate in size. Carolyn rods are not identified. Red cells are normocytic with minimal anisopoikilocytosis. Rare elliptocytes are noted. Significant schistocytes or spherocytes are not appreciated. Mild thrombocytopenia is present. There is moderate platelet anisocytosis including numerous giant platelets. 02/14/2024 1:43 PM [facility] Bone Marrow Aspirate Differential count (100 cells): 20% blasts, 39% maturing myeloid precursors, 24% erythroid progenitors, 4% monocytes, 3% eosinophils, 7% lymphocytes, 3% plasma cells. Specimen quality: adequate. Spicules: present. Trilineage Hematopoiesis: present. Myeloid:Erythroid ratio: decreased. Myeloid Maturation: shift to immaturity including increased blasts. Blasts are small to intermediate in size with round nuclear contours, evenly distributed chromatin, variably conspicuous nucleoli, and scant cytoplasm. Carolyn rods are not identified. More mature myeloid cells show occasional forms with abnormally segmented nuclei or vacuolated cytoplasm. Erythroid Maturation: dyspoietic characterized by nuclear cytoplasmic dyssynchrony and nuclear membrane irregularities. Megakaryocyte morphology: variable morphologies including hyposegmented forms. Storage iron (by special stain): decreased. Sideroblastic iron (by special stain): no ring sideroblasts. 02/14/2024 1:43 PM [facility] Bone Marrow Core Biopsy and Clot Section Description Specimen quality: adequate with 2.0 cm of evaluable marrow. Cellularity: 70-80% Trilineage Hematopoiesis: present. Myeloid to Erythroid ratio: decreased. Myeloid maturation and localization: shift to immaturity including prominently increased blasts. Erythroid maturation and localization: normal. Megakaryocyte number: increased. Megakaryocyte distribution: atypical clusters. Lymphoid aggregates: small. Bone trabeculae: normal. Blood vessels: dilated sinusoids. Plasma cells: normal. Clot section marrow particles: numerous. Clot section morphology: similar to core biopsy. 02/14/2024 1:43 PM [facility] Flow Cytometry Summary Flow cytometry identified 35% myeloblasts and no diagnostic immunophenotypic evidence of monoclonal B-cells, an aberrant T-cell population, or plasma cell neoplasm ([id number]). 02/14/2024 1:43 PM [facility] Clinical History Chronic leukopenia 02/14/2024 1:43 PM [facility] Materials Received Received are 19 slide(s) and 3 blocks labeled [id number] along with a copy of the outside pathology report. [place] [address]. All original materials are returned to the referring institution, along with a copy of our final report. 02/14/2024 1:43 PM [facility] Microscopic Description CD34 immunohistochemistry stains performed on the core biopsy and clot section highlight approximately 30% of total cells. Immunohistochemistry stains are performed in addition to flow cytometry given the cellular heterogeneity marrow. A reticulin stain of the core biopsy highlights a patchy and mild increase in reticulin fibrosis. Iron stains of the core biopsy and clot sections reveal absent stores. 02/14/2024 1:43 PM [facility] Pathologist Location at [facility] 02/14/2024 1:43 PM [facility] Disclaimer The performance characteristics of all immunohistochemical and indirect immunofluorescence stains (if any) cited in this report were determined by the Histopathology Laboratory of [facility]. Some of these tests were developed [...] and interpreted by the attending (teaching) pathologist. 02/14/2024 1:43 PM [facility] Embedded Images 02/14/2024 1:43 PM [facility] Pathology/Cytology BONE MARROW SPECIMEN / Unknown 02/12/2024 9:20 AM TANK BOTTOM ASSEMBLER 02/13/2024 12:34 PM TANK BOTTOM ASSEMBLER Miscellaneous samples (specimen) BONE MARROW SPECIMEN / Unknown 02/12/2024 9:20 AM TANK BOTTOM ASSEMBLER 02/13/2024 12:34 PM TANK BOTTOM ASSEMBLER Rommel Dinh MD LAB - PATHO LOGY/CYTOLOGY ORDERABLES Performing Organization Address [facility] de Phone Number [facility] [address] [phone] documented in this encounter Visit Diagnoses Diagnosis Illness, unspecified documented in this encounter Care Teams Lathe Puller Relationship Specialty Start Date End Date Timothy Banks MD [address] [place] [address] PCP - General 10/19/18 Cindy Garcia MD [address] [place] [address] Field Broomer/Oncologis t Hematology and Oncology 03/24/24 documented as of this encounter
--- OUTSIDE RECORDS SUMMARY | 2024-04-09 17:27 | XMS_ITS | Encounter Summary ---
Author Organization [facility] Address [address] [place] [phone] Phone Care Team Providers Care Resident Care Manager Name Role Phone Timothy Banks MD Primary Care Provider [phone] Encounter Details Date Type Department Care Team (Late st Contact Info) Description 11/13/2019 10:00 AM CDT Office Visit [facility] Nephrology and Hypertension [address] [place] [address], [address] [place] [address] Yaron Roach MD [address] [facility], [address] [place] [address] Obstructive sleep apnea syndrome (Primary Dx); Hypertensive left ventricular hypertrophy; Chronic kidney disease, stage 3 (moderate) (CMS-HCC); Edema of lower extremity Social History [...] Sign Reading Time Taken Comments Blood Pressure 118/64 11/13/2019 9:55 AM CDT Pulse 84 11/13/2019 9:55 AM CDT Temperature 35.9 ??C (96.7 ??F) 11/13/2019 9:55 AM CD T Respiratory Rate - - Oxygen Saturation - - Inhaled Oxygen Concentration - - Weight 115 kg (254 lb) 11/13/2019 9:55 AM CDT Height 188 cm (6' 2 ) 11/13/2019 9:55 AM CDT Body Mass Index 32.61 11/13/2019 9:55 AM CDT documented in this encounter Progress Notes * Yaron Roach MD - 11/13/2019 10:00 AM CDT Russ Kern is a pleasant 74 y.o.male. Copy: John Ramirez M.D. Russ is a very pleasant gentleman who is here to follow for ckd. unclear etioilogy. stable for decades. no urinary issues. Avoiding excess protein. some [...] attack or stroke or heart failure. No more heart issues. Using the cpap machine. The [...] above Urologic: Negative except as above BP 118/64 Pulse 84 Temp 96.7 ??F (35.9 ??C) Ht 6' 2 (1.88 m) Wt 254 lb (115 kg) BMI 32.61 kg/m?? BSA 2.45 m?? WDWN male in NAD Skin No rash or sq nodules Head NCAT Neck No nodes, No TMG Lungs Clear Cor RRR no rub or gallop Abd BS+ nontender and soft. Ext trace edema, Psyche normal not depressed or anxious Recent Labs: 11/05/18 Vit d 36, Upro 79 05/07/2019 , Upro low Lab Results Component Value Date BUN 19 11/07/2019 CREATININE 1.39 (H) 11/07/2019 EGFRAA 57 (L) 11/07/2019 EGFRAA 55 (L) 05/07/2019 EGFRAA 47 (L) 11/05/2018 EGFR 49 (L) 11/07/2019 EGFR 47 (L) 05/07/2019 EGFR 41 (L) 11/05/2018 NA 143 11/07/2019 K 4.9 11/07/2019 CL 104 11/07/2019 CO2 26 11/07/2019 CA 9.2 11/07/2019 PHOSPHATE 3.5 11/07/2019 ALBUMIN 4.6 11/07/2019 GLUCOSE 100 (H) 11/07/2019 PROTCREATUR 68 11/07/2019 PTH 22 11/07/2019 VITD 37.0 11/07/2019 LDL 76 11/22/2017 HDL 42 11/22/2017 TRIG 93 11/22/2017 ALT 21 11/22/2017 WBC 4.8 11/07/2019 HGB 12.5 (L) 11/07/2019 PLT 305 11/07/2019 Impression: Russ has chronic kidney disease. Creat is stable. Etiology is unknown. He had been seen by Dr Laws at [place] for years and was told that the [...] well hydrated as you are No NSAIDs his BMI is too high. he should lose weight. consider peg driver or seeing PCP. he had the pneumonia [...] it is okay[facility]. [facility] has a living will/DPOA. The person whom this patient designates as the decision maker if the patient cannot make one is his Plan drink plenty of fluid Lose weight RTC 6 months Diagnoses and all orders for this visit: Obstructive sleep apnea syndrome - Lipid Panel; Future Hypertensive left ventricular hypertrophy - Lipid Panel; Future Chronic kidney disease, stage 3 (moderate) [place] - CBC (includes Differential/Platelets); Future - Lipid Panel; Future - PTH Intact w/o Calcium, Serum; Future - Renal Function Panel (RFP); Future - Total Protein w/ Creatinine, Urine, Random; Future - Vitamin D, 25-Hydroxy, Serum; Future Edema of lower extremity Body mass index is 32.61 kg/m??. Follow up plan to address BMI is too high. See above. Assessment/Plan Diagnoses and all orders for this visit: Chronic kidney disease, stage 3 (moderate) - Renal Function Panel (RFP); Future - Total Protein w/ Creatinine, Urine, Random; Future Body mass index is 32.61 kg/m??. Follow up plan to address BMI is too high see above. documented in this encounter Plan of Treatment Scheduled Orders Name Type Priority Associated Diagnoses Orde r Schedule Total Protein w/ Creatinine, Urine, Random Lab Routine Chronic kidney disease, stage 3 (moderate) ([facility] 1 Occurrences starting 11/13/2019 until 11/12/2020 documented as of this encounter Procedures Procedure Name Priority Date/Time Associated Diagnosis Comments VITAMIN D, 25-HYDROXY, SERUM Routine 04/30/2020 6:09 AM DENSITY CONTROL PUNCHER Chronic kidney disease, stage 3 (moderate) CBC (INCLUDES DIFFERENTIAL/PLATEL ETS) Routine 04/30/2020 6:09 AM DENSITY CONTROL PUNCHER Chronic kidney disease, stage 3 (moderate) RENAL FUNCTION PANEL (RFP) Routine 04/30/2020 6:09 AM DENSITY CONTROL PUNCHER Chronic kidney disease, stage 3 (moderate) LIPID PANEL Routine 04/30/2020 6:09 AM DENSITY CONTROL PUNCHER Obstructive sleep apnea syndrome Hypertensive left ventricular hypertrophy Chronic kidney disease, stage 3 (moderate) PTH INTACT W/O CALCIUM, SERUM Routine 04/30/2020 6:09 AM DENSITY CONTROL PUNCHER Chronic kidney disease, stage 3 (moderate) documented in this encounter Results * Vitamin D, 25-Hydroxy, Serum (04/30/2020 6:09 AM DENSITY CONTROL PUNCHER) 25-Hydroxyvitami n D2+25-Hydroxyvit bautista D3, Serum/Plasma 31.0 30.0 - 100.0 ng/mL [facility] 1 Comment: Vitamin D deficiency has been defined by the [place] of [employer] and an Endocrine Society practice guideline as a level of serum 25-OH vitamin D less than 20 ng/mL (1,2). The Endocrine Society went on to further define vitamin D insufficiency as a level between 21 and 29 ng/mL (2). 1. IOM ([place] of [employer]). 2010. Dietary reference ?? intakes for calcium and D. Javier DC: The ?? National Scint-X Press. 2. Imtiaz MF, Abiel NC, Luc MCKAY, et al. ?? Evaluation, treatment, and prevention of vitamin D ?? deficiency: an Endocrine Society clinical practice ?? guideline. JCEM. 2010; 96(7):1911-30. 04/30/2020 6:0 9 AM DENSITY CONTROL PUNCHER 04/29/2020 11:00 PM DENSITY CONTROL PUNCHER Narrative [facility] - 05/01/2020 1:35 PM DENSITY CONTROL PUNCHER Performed at: ??01 - [facility] [address] ??[id number] Digital Media Sales Consultant: Francisco Javier Stewart PhD, Phone: ??[phone] Yaron Roach MD LAB BLOOD ORDERABLES [facility] * (ABNORMAL) Renal Function Panel (RFP) (04/30/2020 6:09 AM DENSITY CONTROL PUNCHER) Glucose, Serum/Plasma 110(H) 65 - 99 mg/dL [facility] 1 Urea nitrogen, Serum/Plasma (BUN) 17 8 - 27 mg/dL [facility] 1 Creatinine, Serum/Plasma 1.33(H) 0.76 - 1.27 mg/dL [facility] 1 eGFR, non 52(L) >59 mL/min/1.7 3 [facility] 1 eGFR, 60 >59 mL/min/1.7 3 [facility] 1 Urea nitrogen/Creat inine, Serum/Plasma 13 10 - 24 [facility] 1 Sodium, Serum/Plasma 143 134 - 144 mmol/L [facility] 1 Potassium, Serum/Plasma 4.9 3.5 - 5.2 mmol/L [facility] 1 Chloride, Serum/Plasma 104 96 - 106 mmol/L [facility] 1 Carbon dioxide CO2), total, Serum/Plasma 25 20 - 29 mmol/L [facility] 1 Calcium, Serum/Plasma 9.3 8.6 - 10.2 mg/dL [facility] 1 Phosphate, Serum/Plasma 3.6 2.8 - 4.1 mg/dL [facility] 1 Albumin, Serum/Plasma 4.3 3.7 - 4.7 g/dL [facility] 1 Blood 04/30/2020 6:09 AM DENSITY CONTROL PUNCHER 04/29/2020 11:00 PM DENSITY CONTROL PUNCHER Narrative [facility] - 05/01/2020 1:35 PM DENSITY CONTROL PUNCHER Performed at: ??01 - [facility] [address], [place], [place] ??[id number] Digital Media Sales Consultant: Francisco Javier Stewart PhD, Phone: ??[phone] Yaron Roach MD LAB BLOOD ORDERABLES [facility] * PTH Intact w/o Calcium, Serum (04/30/2020 6:09 AM DENSITY CONTROL PUNCHER) PTH, Intact, Serum/Plasma 36 15 - 65 pg/mL [facility] 1 Parathyrin (PTH), intact, Serum/Plasma Comment [facility] 1 Comment: Interpretation ? Intact PTH ?Calcium ?(pg/mL) ?(mg/dL) Normal ?15 - 65 ? 8.6 - 10.2 Primary Hyperparathyroidism ? >65 ?>10.2 Secondary Hyperparathyroidism ? >65 ?<10.2 Non-Parathyroid Hypercalcemia ? <65 ?>10.2 Hypoparathyroidism ?<15 ?< 8.6 Non-Parathyroid Hypocalcemia ?15 - 65 ?< 8.6 Genetic analysis report . [facility] 2 Blood 04/30/2020 6:09 AM DENSITY CONTROL PUNCHER 04/29/2020 11:00 PM DENSITY CONTROL PUNCHER Narrative [facility] - 05/01/2020 1:35 PM DENSITY CONTROL PUNCHER Performed at: ??01 - [facility] [address] ??[id number] Digital Media Sales Consultant: Francisco Javier Stewart PhD, Phone: ??[phone] Performed at: ??02 - [facility] [address] [place], [place] ??[id number] Digital Media Sales Consultant: Cinthya Roper [facility], Phone: ??[phone] Yaron Roach MD LAB BLOOD ORDERABLES [facility] 2 * Lipid Panel (04/30/2020 6:09 AM DENSITY CONTROL PUNCHER) Cholesterol, Serum/Plasma 141 100 - 199 mg/dL [facility] 1 Triglyceride, Serum/Plasma 99 0 - 149 mg/dL [facility] 1 Cholesterol, HDL, Serum/Plasma 40 >39 mg/dL [facility] 1 VLDL-CHOL(CALC) 19 5 - 40 mg/dL [facility] 1 LDL Cholesterol, CALC 82 0 - 99 mg/dL [facility] 1 Blood 04/30/2020 6:09 AM DENSITY CONTROL PUNCHER 04/29/2020 11:00 PM DENSITY CONTROL PUNCHER Narrative [facility] - 05/01/2020 1:35 PM DENSITY CONTROL PUNCHER Performed at: ??01 - [facility] [address], [place], [place] ??[id number] Digital Media Sales Consultant: Francisco Javier Stewart PhD, Phone: ??[phone] Yaron Roach MD LAB BLOOD ORDERABLES [facility] * (ABNORMAL) CBC (includes Differential/Platelets) (04/30/2020 6:09 AM DENSITY CONTROL PUNCHER) Pathologist [facility] Leukocytes, Blood 5.0 3.4 - 10.8 x10E3/uL [facility] 1 Erythrocytes (RBC) 4.55 4.14 - 5.80 x10E6/uL [facility] 1 Hemoglobin (HGB) 12.8(L) 13.0 - 17.7 g/dL [facility] 1 Hematocrit (HCT) 40.3 37.5 - 51.0 % [facility] 1 MCV 89 79 - 97 fL [facility] 1 MCH 28.1 26.6 - 33.0 pg [facility] 1 MCHC 31.8 31.5 - 35.7 g/dL [facility] 1 Erythrocyte Distribution Width (RDW) 13.9 11.6 - 15.4 % [facility] 1 Platelets, Blood 334 150 - 450 x10E3/uL [facility] 1 Neutrophils/100 leukocytes, Blood 46 Not Estab. % [facility] 1 Lymphocytes/100 leukocytes, Blood 30 Not Estab. % [facility] 1 Monocytes/100 leukocytes, Blood 14 Not Estab. % [facility] 1 Eosinophils/100 leukocytes, Blood 9 Not Estab. % [facility] 1 Basophils/100 leukocytes, Blood 1 Not Estab. % [facility] 1 Neutrophils, Blood 2.3 1.4 - 7.0 x10E3/uL [facility] 1 Lymphocytes, Blood 1.5 0.7 - 3.1 x10E3/uL [facility] 1 Monocytes, Blood 0.7 0.1 - 0.9 x10E3/uL [facility] 1 Eosinophils, Blood 0.4 0.0 - 0.4 x10E3/uL [facility] 1 Basophils, Blood 0.0 0.0 - 0.2 x10E3/uL [facility] 1 Immature granulocytes/100 leukocytes, Blood 0 Not Estab. % [facility] 1 Immature granulocytes, Blood 0.0 0.0 - 0.1 x10E3/uL [facility] 1 Blood 04/30/2020 6:09 AM DENSITY CONTROL PUNCHER 04/29/2020 11:00 PM DENSITY CONTROL PUNCHER Narrative [facility] - 05/01/2020 1:35 PM DENSITY CONTROL PUNCHER Performed at: ??01 - [facility] [address] ??[id number] Digital Media Sales Consultant: Francisco Javier Stewart PhD, Phone: ??[phone] Yaron Roach MD LAB BLOOD ORDERABLES [facility] 1 documented in this encounter Visit Diagnoses Diagnosis Obstructive sleep apnea syndrome- Primary Hypertensive left ventricular hypertrophy Chronic kidney disease, stage 3 (moderate) Edema of lower extremity documented in this encounter Care Teams Resident Care Manager Relationship Specialty Start Date End Date Timothy Banks MD [address] [place] [address] PCP - General Family Medicine 11/14/18 documented as of this encounter
--- OUTSIDE RECORDS SUMMARY | 2024-04-09 17:27 | XMS_ITS | Encounter Summary ---
Author Organization [facility] Address [address] [place] [id number] Phone Care Team Providers Care Snap Attacher Name Role Phone Timothy Banks MD Primary Care Provider [phone] Encounter Details Date Type Department Care Team (Late st Contact Info) Description 11/22/2021 9:00 AM CDT Office Visit [facility] [address] [place] [address], [address] [place] [address] Yaron Roach MD [address] [facility], [address] [place] [address] Obstructive sleep apnea syndrome (Primary Dx); Stage 3a chronic kidney disease ([facility]) Social History Tobacco Use Types Packs/Day Years [...] Sign Reading Time Taken Comments Blood Pressure 124/72 11/22/2021 9:06 AM CDT Pulse 84 11/22/2021 9:06 AM CDT Temperature 35.9 ??C (96.6 ??F) 11/22/2021 9:06 AM CD T Respiratory Rate - - Oxygen Saturation - - Inhaled Oxygen Concentration - - Weight 114 kg (252 lb) 11/22/2021 9:06 AM CDT Height 188 cm (6' 2 ) 11/22/2021 9:06 AM CDT Body Mass Index 32.35 11/22/2021 9:06 AM CDT documented in this encounter Progress Notes * Yaron Roach MD - 11/22/2021 9:00 AM CDT Russ Kern is a pleasant 76 y.o.male. Copy: John Ramirez M.D. Russ is a very pleasant gentleman who is here to follow for ckd. unclear etioilogy. stable for decades. Urinating okay. Some nocturia. Avoiding excess protein. He sees Dr Ramirez about the gerd. On lansoprazole No more covid Little sweellng. He takes furosemide once a month or so. The patient has a history of palpitations and a bundle branch block. He's never had a heart attack or stroke or heart failure. No recent heart issues. 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 [...] above Urologic: Negative except as above BP 124/72 Pulse 84 Temp 96.6 ??F (35.9 ??C) Ht 6' 2 (1.88 [...] Lab Results Component Value Date BUN 17 11/15/2021 CREATININE 1.52 (H) 11/15/2021 EGFRAA 59 (L) 05/18/2021 EGFRAA 52 (L) 11/04/2020 EGFRAA 60 04/30/2020 EGFR 47 (L) 11/15/2021 EGFR 51 (L) 05/18/2021 EGFR 45 (L) 11/04/2020 NA 143 11/15/2021 K 5.0 11/15/2021 CL 106 11/15/2021 CO2 23 11/15/2021 CA 9.2 11/15/2021 PHOSPHATE 2.9 11/15/2021 ALBUMIN 4.6 11/15/2021 GLUCOSE 107 (H) 11/15/2021 PROTCREATUR 65 11/15/2021 PTH 39 05/18/2021 PTH Comment 05/18/2021 VITD 31.0 04/30/2020 LDL 76 11/22/2017 HDL 40 04/30/2020 TRIG 99 04/30/2020 ALT 21 11/22/2017 WBC 4.2 05/18/2021 HGB 11.1 (L) 05/18/2021 PLT 295 05/18/2021 Impression: Russ has chronic kidney disease. Creat is stable. Etiology is unknown. He had been seen by Dr Laws at [facility] for years and was told that the etiology is unclear. To preserve renal function: Blood pressure this is well controlled. Cholesterol good in the past. I will leave this up to Dr Banks. VIANEY/ARB no protein nor dm nor HTN so no need for this since stable. Low protein diet PTH check next visit Stay hydrated No NSAIDs CO2 is okay Hb is good his BMI is too high. he should lose weight. consider meter tester primary or seeing PCP. Plan drink plenty of fluid Lose weightl He has lost some. RTC 6 months Diagnoses and all orders for this visit: Obstructive sleep apnea syndrome - CBC (includes Differential/Platelets); Future - PTH Intact w/o Calcium, Serum; Future - Renal Function Panel (RFP); Future - Total Protein w/ Creatinine, Urine, Random; Future Stage 3a chronic kidney disease (CMS-HCC) - CBC (includes Differential/Platelets); Future - PTH Intact w/o Calcium, Serum; Future - Renal Function Panel (RFP); Future - Total Protein w/ Creatinine, Urine, Random; Future Body mass index is 32.35 kg/m??. Follow up plan to address BMI is lose weight. . See above Diagnoses and all orders for this visit: Obstructive sleep apnea syndrome Stage 3a chronic kidney disease (CMS-HCC) Body mass index is 32.35 kg/m??. Follow up plan to address BMI is lose weight. See above Diagnoses and all orders for this visit: Obstructive sleep apnea syndrome Stage 3a chronic kidney disease (CMS-HCC) Body mass index is 32.35 kg/m??. Follow up plan to address BMI is lose weight. . See above Diagnoses and all orders for this visit: Obstructive sleep apnea syndrome Stage 3a chronic kidney disease (CMS-HCC) Body mass index is 32.35 kg/m??. Follow up plan to address BMI is high. . See above Diagnoses and all orders for this visit: Obstructive sleep apnea syndrome Stage 3a chronic kidney disease (CMS-HCC) Body mass index is 32.35 kg/m??. Follow [...] TOTAL PROTEIN W/ CREATININE, URINE, RANDOM Routine 05/12/2022 8:02 AM CUB REPORTER Obstructive sleep apnea syndrome Stage 3a chronic kidney disease ([facility]) CBC (INCLUDES DIFFERENTIAL/PLATEL ETS) Routine 05/12/2022 8:02 AM CUB REPORTER Obstructive sleep apnea syndrome Stage 3a chronic kidney disease ([facility]) RENAL FUNCTION PANEL (RFP) Routine 05/12/2022 8:02 AM CUB REPORTER Obstructive sleep apnea syndrome Stage 3a chronic kidney disease ([facility]) PTH INTACT W/O CALCIUM, SERUM Routine 05/12/2022 8:02 AM CUB REPORTER Obstructive sleep apnea syndrome Stage 3a chronic kidney disease [place] documented in this encounter Results * Total Protein w/ Creatinine, Urine, Random (05/12/2022 8:02 AM CUB REPORTER) Creatinine, Urine 81.4 Not Estab. mg/dL [facility] 1 Protein, Urine 4.5 Not Estab. mg/dL [facility] 1 Protein/Creatin ine, Urine 55 0 - 200 mg/g creat [facility] 1 05/12/2022 8:02 AM CUB REPORTER 05/11/2022 11:00 PM CUB REPORTER Narrative [facility] - 05/14/2022 2:35 AM CUB REPORTER Performed at: ??01 - [facility] [address] ??[id number] Product Promoter Sales Person: Francisco Javier Stewart PhD, Phone: ??[phone] Yaron Roach MD LAB URINE ORDERABLES [facility] * (ABNORMAL) Renal Function Panel (RFP) (05/12/2022 8:02 AM CUB REPORTER) Glucose, Serum/Plasma 138(H) 70 - 99 mg/dL [facility] 1 Urea nitrogen, Serum/Plasma (BUN) 17 8 - 27 mg/dL [facility] 1 Creatinine, Serum/Plasma 1.51(H) 0.76 - 1.27 mg/dL [facility] 1 Estimated Glomerular Filtration Rate (eGFR) 47(L) >59 mL/min/1.7 3 [facility] 1 Urea nitrogen/Creati nine, Serum/Plasma 11 10 - 24 [facility] 1 Sodium, Serum/Plasma 143 134 - 144 mmol/L [facility] 1 Potassium, Serum/Plasma 5.1 3.5 - 5.2 mmol/L [facility] 1 Chloride, Serum/Plasma 105 96 - 106 mmol/L [facility] 1 Carbon dioxide CO2), total, Serum/Plasma 24 20 - 29 mmol/L [facility] 1 Calcium, Serum/Plasma 9.6 8.6 - 10.2 mg/dL [facility] 1 Phosphate, Serum/Plasma 3.0 2.8 - 4.1 mg/dL [facility] 1 Albumin, Serum/Plasma 4.6 3.7 - 4.7 g/dL [facility] 1 Blood 05/12/2022 8:02 AM CUB REPORTER 05/11/2022 11:00 PM CUB REPORTER Narrative [facility] - 05/14/2022 2:35 AM CUB REPORTER Performed at: ??01 - [facility] [place] [address] [facility], [place], [place] ??[id number] Product Promoter Sales Person: Francisco Javier Stewart PhD, Phone: ??[phone] Yaron Roach MD LAB BLOOD ORDERABLES [facility] * PTH Intact w/o Calcium, Serum (05/12/2022 8:02 AM CUB REPORTER) PTH, Intact, Serum/Plasma 24 15 - 65 pg/mL [facility] 1 Parathyrin (PTH), intact, Serum/Plasma Comment [facility] 1 Comment: Interpretation ? Intact PTH ?Calcium ?(pg/mL) ?(mg/dL) Normal ?15 - 65 ? 8.6 - 10.2 Primary Hyperparathyroidism ? >65 ?>10.2 Secondary Hyperparathyroidism ? >65 ?<10.2 Non-Parathyroid Hypercalcemia ? <65 ?>10.2 Hypoparathyroidism ?<15 ?< 8.6 Non-Parathyroid Hypocalcemia ?15 - 65 ?< 8.6 Genetic analysis report . [facility] 2 Blood 05/12/2022 8:02 AM CUB REPORTER 05/11/2022 11:00 PM CUB REPORTER Narrative [facility] - 05/14/2022 2:35 AM CUB REPORTER Performed at: ??01 - [facility] [address], [place], [place] ??[id number] Product Promoter Sales Person: Francisco Javier Stewart PhD, Phone: ??[phone] Performed at: ??02 - [facility] [address] [facility], [place], [place] ??[id number] Product Promoter Sales Person: [facility], Phone: ??[phone] Yaron Roach MD LAB BLOOD ORDERABLES [facility] * (ABNORMAL) CBC (includes Differential/Platelets) (05/12/2022 8:02 AM CUB REPORTER) Leukocytes, Blood 2.5(LL) 3.4 - 10.8 x10E3/uL [facility] 1 Erythrocytes (RBC) 4.15 4.14 - 5.80 x10E6/uL [facility] 1 Hemoglobin (HGB) 10.9(L) 13.0 - 17.7 g/dL [facility] 1 Hematocrit (HCT) 36.0(L) 37.5 - 51.0 % [facility] 1 MCV 87 79 - 97 fL [facility] 1 MCH 26.3(L) 26.6 - 33.0 pg [facility] 1 MCHC 30.3(L) 31.5 - 35.7 g/dL [facility] 1 Erythrocyte Distribution Width (RDW) 15.5(H) 11.6 - 15.4 % [facility] 1 Platelets, Blood 289 150 - 450 x10E3/uL [facility] 1 Neutrophils/100 leukocytes, Blood 42 Not Estab. % [facility] 1 Lymphocytes/100 leukocytes, Blood 40 Not Estab. % [facility] 1 Monocytes/100 leukocytes, Blood 12 Not Estab. % [facility] 1 Eosinophils/100 leukocytes, Blood 4 Not Estab. % [facility] 1 Basophils/100 leukocytes, Blood 2 Not Estab. % [facility] 1 Neutrophils, Blood 1.1(L) 1.4 - 7.0 x10E3/uL [facility] 1 Lymphocytes, Blood 1.0 0.7 - 3.1 x10E3/uL [facility] 1 Monocytes, Blood 0.3 0.1 - 0.9 x10E3/uL [facility] 1 Eosinophils, Blood 0.1 0.0 - 0.4 x10E3/uL [facility] 1 Basophils, Blood 0.0 0.0 - 0.2 x10E3/uL [facility] 1 Immature granulocytes/100 leukocytes, Blood 0 Not Estab. % [facility] 1 Immature granulocytes, Blood 0.0 0.0 - 0.1 x10E3/uL [facility] 1 Blood 05/12/2022 8:02 AM CUB REPORTER 05/11/2022 11:00 PM CUB REPORTER Narrative [facility] - 05/14/2022 2:35 AM CUB REPORTER Performed at: ??01 - [facility] [address] ??[id number] Product Promoter Sales Person: Francisco Javier Stewart PhD, Phone: ??[phone] aYron Roach MD LAB BLOOD ORDERABLES Performing Organization Address City/State/[facility] Co de Phone Number [facility] documented in this encounter Visit Diagnoses Diagnosis Obstructive sleep apnea syndrome- Primary Stage 3a chronic kidney disease (CMS-HCC) documented in this encounter Care Teams Snap Attacher Relationship Specialty Start Date End Date Timothy Banks MD [address] [place] [address] PCP - General Family Medicine 11/14/18 documented as of this encounter
--- OUTSIDE RECORDS SUMMARY | 2024-04-09 17:27 | XMS_ITS | Encounter Summary ---
Author Organization [facility] Address [address] [place] [phone] Phone Care Team Providers Care Production Supervisor Name Role Phone Unavailable Primary Care Provider Unavailabl e Encounter Details Date Type Department Care Team (Late st Contact Info) Description 11/22/2017 Legacy Encounter - [place] [address] Yaron Roach MD [address] [facility], [address] [facility] [place] [address] Social History Tobacco Use Types Packs/Day Years [...] Procedure Name Priority Date/Time Associated Diagnosis Comments CBC (INCLUDES PLATELETS / NO DIFFERENTIAL) Routine 11/22/2017 9:29 AM CDT TOTAL PROTEIN W/ CREATININE, URINE, RANDOM Routine 11/22/2017 9:29 AM CDT VITAMIN D, 25-HYDROXY, SERUM Routine 11/22/2017 9:29 AM CDT RENAL FUNCTION PANEL (RFP) Routine 11/22/2017 9:29 AM CDT LIPID PANEL W/ RATIOS Routine 11/22/2017 9:29 AM CDT ALT (SGPT), SERUM Routine 11/22/2017 9:2 9 AM CDT PTH INTACT W/O CALCIUM, SERUM Routine 11/22/2017 9:29 AM CDT documented in this encounter Results * PTH Intact w/o Calcium (11/22/2017 9:29 AM CDT) PTH, Intact, Serum/Plasma 39 15 - 65 pg/mL EXTERNAL LAB (NON-INTERFACE D) 11/22/2017 9:29 AM CDT 11/22/2017 Yaron Roach MD LAB BLOOD ORDERABLES Performing Organization Address [facility] Co de Phone Number EXTERNAL LAB (NON-INTERFACED) * ALT (11/22/2017 9:29 AM CDT) Alanine Aminotransferase (ALT), Serum Plasma 21 0 - 44 IU/L EXTERNAL LAB (NON-INTERFAC ED) 11/22/2017 9:2 9 AM CDT 11/22/2017 Yaron Roach MD LAB BLOOD ORDERABLES Performing Organization Address [facility] Co de Phone Number EXTERNAL LAB (NON-INTERFACED) * Vitamin D, 25-Hydroxy (11/22/2017 9:29 AM CDT) 25-Hydroxyvitam in D2+25-Hydroxyvi tamin D3, Serum/Plasma 44.3 30.0 - 100.0 ng/mL EXTERNAL LAB (NON-INTERFACE D) Comment: Vitamin D deficiency has been defined by the Fults of Medicine and an Endocrine Society practice guideline as a level of serum 25-OH vitamin D less than 20 ng/mL (1,2). The Endocrine Society went on to further define vitamin D insufficiency as a level between 21 and 29 ng/mL (2). 1. IOM (Fults of Medicine). 2010. Dietary reference ?? intakes for calcium and D. Javier DC: The ?? Handpressions Press. 2. Imtiaz MF, Abiel NC, Luc MCKAY, et al. ?? Evaluation, treatment, and prevention of vitamin D ?? deficiency: an Endocrine Society clinical practice ?? guideline. JCEM. 2010; 96():1911-30. 11/22/2017 9:29 AM CDT 11/22/2017 Yaron Roach MD LAB BLOOD ORDERABLES Performing Organization Address City/[facility] Co de Phone Number EXTERNAL LAB (NON-INTERFACED) * Total Protein w/ Creatinine, Random (11/22/2017 9:29 AM CDT) Creatinine, Urine 116.1 Not Estab. mg/dL EXTERNAL LAB (NON-INTERFACE D) Protein, Urine 10.7 Not Estab. mg/dL EXTERNAL LAB (NON-INTERFACE D) Protein/Creatin ine, Urine 92 0 - 200 mg/g creat EXTERNAL LAB (NON-INTERFACE D) 11/22/2017 9:29 AM CDT 11/22/2017 Yaron Roach MD LAB URINE ORDERABLES Performing Organization Address [facility] de Phone Number EXTERNAL LAB (NON-INTERFACED) * Lipid Panel W/ Ratios (11/22/2017 9:29 AM CDT) Cholesterol, Serum/Plasma 137 100 - 199 mg/dL EXTERNAL LAB (NON-INTERFAC ED) Triglyceride, Serum/Plasma 93 0 - 149 mg/dL EXTERNAL LAB (NON-INTERFAC ED) Cholesterol, HDL, Serum/Plasma 42 >39 mg/dL EXTERNAL LAB (NON-INTERFAC ED) Cholesterol, VLDL, Serum/Plasma 19 5 - 40 mg/dL EXTERNAL LAB (NON-INTERFAC ED) Cholesterol, LDL, Serum/Plasma 76 0 - 99 mg/dL EXTERNAL LAB (NON-INTERFAC ED) Comment: CANCELED EXTERNAL L AB (NON-INTERFAC ED) Comment:Result canceled by t he ancillary. Cholesterol, LDL/Cholestero l, HDL, Serum/Plasma 1.8 0.0 - 3.6 ratio EXTERNAL LAB (NON-INTERFAC ED) Comment: ? LDL/HDL Ratio ? Men ??Women ? 1/2 Avg.Risk ??1.0 ?1.5 ? Avg.Risk ??3.6 ?3.2 ?2X Avg.Risk ??6.2 ?5.0 ?3X Avg.Risk ??8.0 ?6.1 11/22/2017 9:29 AM CDT 11/22/2017 Yaron Roach MD LAB BLOOD ORDERABLES EXTERNAL LAB (NON-INTERFACED) * CBC (includes Platelet/No Differential) (11/22/2017 9:29 AM CDT) Leukocytes, Blood 4.7 3.4 - 10.8 x10E3/uL EXTERNAL LAB (NON-INTERFAC ED) Erythrocytes, Blood 4.91 4.14 - 5.80 x10E6/uL EXTERNAL LAB (NON-INTERFAC ED) Hemoglobin, Blood 14.3 13.0 - 17.7 g/dL EXTERNAL LAB (NON-INTERFAC ED) Hematocrit of Blood 44.1 37.5 - 51.0 % EXTERNAL LAB (NON-INTERFAC ED) MCV 90 79 - 97 fL EXTERNAL LAB (NON-INTERFAC ED) MCH 29.1 26.6 - 33.0 pg EXTERNAL LAB (NON-INTERFAC ED) MCHC 32.4 31.5 - 35.7 g/dL EXTERNAL LAB (NON-INTERFAC ED) Red CEll Distribution Width (RDW-CV) % 15.0 12.3 - 15.4 % EXTERNAL LAB (NON-INTERFAC ED) Platelets, Blood 288 150 - 379 x10E3/uL EXTERNAL LAB (NON-INTERFAC ED) Nucleated erythrocytes/100 leukocytes, Blood CANCELED EXTERNAL L AB (NON-INTERFAC ED) Comment:Result canceled by t he ancillary. 11/22/2017 9:29 AM CDT 11/22/2017 Yaron Roach MD LAB BLOOD ORDERABLES EXTERNAL LAB (NON-INTERFACED) * (ABNORMAL) Renal Function Panel (11/22/2017 9:29 AM CDT) Glucose, Serum/Plasma 109(H) 65 - 99 mg/dL EXTERNAL LAB (NON-INTERFACE D) Urea nitrogen, Serum/Plasma (BUN) 12 8 - 27 mg/dL EXTERNAL LAB (NON-INTERFACE D) Creatinine, Serum/Plasma 1.52(H) 0.76 - 1.27 mg/dL EXTERNAL LAB (NON-INTERFACE D) eGFR, non 45(L) >59 mL/min/1.7 3 EXTERNAL LAB (NON-INTERFACE D) eGFR, Serum/Plasma (CKD-EPI) 52(L) >59 mL/min/1.7 3 EXTERNAL LAB (NON-INTERFACE D) Urea nitrogen/Creat inine, Serum/Plasma 8(L) 10 - 24 EXTERNAL LAB (NON-INTERFACE D) Sodium, Serum/Plasma 144 134 - 144 mmol/L EXTERNAL LAB (NON-INTERFACE D) Potassium, Serum/Plasma 5.1 3.5 - 5.2 mmol/L EXTERNAL LAB (NON-INTERFACE D) Chloride, Serum/Plasma 104 96 - 106 mmol/L EXTERNAL LAB (NON-INTERFACE D) Carbon dioxide CO2), total, Serum/Plasma 24 20 - 29 mmol/L EXTERNAL LAB (NON-INTERFACE D) Calcium, Serum/Plasma 9.2 8.6 - 10.2 mg/dL EXTERNAL LAB (NON-INTERFACE D) Phosphate, Serum/Plasma 3.1 2.5 - 4.5 mg/dL EXTERNAL LAB (NON-INTERFACE D) Albumin, Serum/Plasma 4.2 3.5 - 4.8 g/dL EXTERNAL LAB (NON-INTERFACE D) 11/22/2017 9:29 AM CDT 11/22/2017 Yaron Roach MD LAB BLOOD ORDERABLES EXTERNAL LAB (NON-INTERFACED) documented in this encounter Visit Diagnoses Not on filedocumented in this encounter
--- OUTSIDE RECORDS SUMMARY | 2024-04-09 17:27 | XMS_ITS | Encounter Summary ---
Author Organization [facility] Berta utiizzy Address [address] [place] [address] Phone Care Team Providers Care Screen Printing Press Operator Name Role Phone Timothy Banks MD Primary Care Provider [phone] Encounter Details Date Type Department Care Team (Late st Contact Info) Description 11/11/2020 9:30 AM CDT Office Visit [facility] Nephrology and Hypertension [address] [place] [address], [address] [place] [address] Yaron Roach MD [address] [facility], [address] [place] [address] Obstructive sleep apnea syndrome (Primary Dx); Stage [...] Sign Reading Time Taken Comments Blood Pressure 118/72 11/11/2020 9:21 AM CDT Pulse 72 11/11/2020 9:21 AM CDT Temperature 36.4 ??C (97.5 ??F) 11/11/2020 9:21 AM CD T Respiratory Rate - - Oxygen Saturation - - Inhaled Oxygen Concentration - - Weight 114 kg (251 lb) 11/11/2020 9:21 AM CDT Height 188 cm (6' 2 ) 11/11/2020 9:21 AM CDT Body Mass Index 32.23 11/11/2020 9:21 AM CDT documented in this encounter Progress Notes * Yaron Roach MD - 11/11/2020 9:30 AM CDT Russ Kern is a pleasant 75 y.o.male. [...] above Urologic: Negative except as above BP 118/72 Pulse 72 Temp 97.5 ??F (36.4 ??C) Ht 6' 2 (1.88 m) Wt 251 lb (114 kg) BMI 32.23 kg/m?? BSA 2.44 m?? WDWN male in NAD Skin No rash or sq nodules Head NCAT Neck No nodes, No TMG Lungs Clear bilaterally Cor RRR no rub or gallop Abd BS+ nontender and soft. Ext trace edema, Psyche normal not depressed or anxious Recent Labs: 11/05/18 Vit d 36, Upro 79 05/07/2019 , Upro low Lab Results Component Value Date BUN 15 11/04/2020 CREATININE 1.49 (H) 11/04/2020 EGFRAA 52 (L) 11/04/2020 EGFRAA 60 04/30/2020 EGFRAA 57 (L) 11/07/2019 EGFR 45 (L) 11/04/2020 EGFR 52 (L) 04/30/2020 EGFR 49 (L) 11/07/2019 NA 142 11/04/2020 K 4.7 11/04/2020 CL 105 11/04/2020 CO2 22 11/04/2020 CA 9.0 11/04/2020 PHOSPHATE 3.1 11/04/2020 ALBUMIN 4.4 11/04/2020 GLUCOSE 123 (H) 11/04/2020 PROTCREATUR 58 11/04/2020 PTH 40 11/04/2020 PTH Comment 11/04/2020 VITD 31.0 04/30/2020 LDL 76 11/22/2017 HDL 40 04/30/2020 TRIG 99 04/30/2020 ALT 21 11/22/2017 WBC 4.4 11/04/2020 HGB 11.7 (L) 11/04/2020 PLT 311 11/04/2020 Impression: Russ has chronic kidney disease. Creat is stable. Etiology is unknown. He had been seen by Dr Laws at [facility] for years and was told that the [...] diet Vitamin D/PTH this is good. Stay hydrated No NSAIDs CO2 is okay He is mildly anemic. Possibly due to the CKD but he also has a history of Herring's and so might consider getting an EGD. He will talk with Dr. Sands his BMI is too high. he should lose weight. consider geographic information system analyst or seeing PCP. He is on a PPI. This medicine has been correlated with CKD but has not been proven to cause it. Butwith all meds, if he doens't need it he shouldn't take it. 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 he sees Dr Ramirez. Leave on PPI for now unless Dr Fedder says it is okay. [facility] Plan drink plenty of fluid Lose weight Consider EGD? RTC 6 months Diagnoses and all orders for this visit: Obstructive sleep apnea syndrome Stage 3a chronic kidney disease (CMS-HCC) Edema of lower extremity Body mass index is 32.23 kg/m??. Follow up plan to address BMI is lose weight. . See above Diagnoses and all orders for this visit: Obstructive sleep apnea syndrome Stage 3a chronic kidney disease (CMS-HCC) Edema of lower extremity Body mass index is 32.23 kg/m??. Follow up plan to address BMI is high. . See above Diagnoses and all orders for this visit: Obstructive sleep apnea syndrome Stage 3a chronic kidney disease (CMS-HCC) Edema of lower extremity Body mass index is 32.23 kg/m??. Follow up plan to address BMI is too high. See above. Assessment/Plan Diagnoses and all orders for this visit: Chronic kidney disease, stage 3 (moderate) - Renal Function Panel (RFP); Future - Total Protein w/ Creatinine, Urine, Random; Future Body mass index is 32.23 kg/m??. Follow up plan to address BMI is too high see above. documented in this encounter Plan of Treatment Not on file documented as of this encounter Procedures Procedure Name Priority Date/Time Associated Diagnosis Comments TOTAL PROTEIN W/ CREATININE, URINE, RANDOM Routine 05/18/2021 6:40 AM PIE BAKERY LABORER Stage 3a chronic kidney disease ([facility]-HCC) CBC (INCLUDES DIFFERENTIAL/PLATEL ETS) Routine 05/18/2021 6:40 AM PIE BAKERY LABORER Stage 3a chronic kidney disease (CMS-HCC) RENAL FUNCTION PANEL (RFP) Routine 05/18/2021 6:40 AM PIE BAKERY LABORER Stage 3a chronic kidney disease (CMS-HCC) PTH INTACT W/O CALCIUM, SERUM Routine 05/18/2021 6:40 AM PIE BAKERY LABORER Stage 3a chronic kidney disease (CMS-HCC) documented in this encounter Results * Total Protein w/ Creatinine, Urine, Random (05/18/2021 6:40 AM PIE BAKERY LABORER) Creatinine, Urine 99.1 Not Estab. mg/dL [facility] 1 Protein, Urine 5.8 Not Estab. mg/dL [facility] 1 Protein/Creatin ine, Urine 59 0 - 200 mg/g creat [facility] 1 05/18/2021 6:40 AM PIE BAKERY LABORER 05/17/2021 11:00 PM PIE BAKERY LABORER Narrative [facility] - 05/19/2021 3:35 PM PIE BAKERY LABORER Performed at: ??01 - [facility] ??[id number] Computator: Francisco Javier Stewart PhD, Phone: ??[phone] Yaron Roach MD LAB URINE ORDERABLES [facility] 1 * (ABNORMAL) Renal Function Panel (RFP) (05/18/2021 6:40 AM PIE BAKERY LABORER) Pathologist [facility] Glucose, Serum/Plasma 119(H) 65 - 99 mg/dL [facility] 1 Urea nitrogen, Serum/Plasma (BUN) 14 8 - 27 mg/dL [facility] 1 Creatinine, Serum/Plasma 1.35(H) 0.76 - 1.27 mg/dL [facility] 1 eGFR, non 51(L) >59 mL/min/1. 73 [facility] 1 eGFR, 59(L) >59 mL/min/1. 73 [facility] 1 Comment: In accordance with recommendations from the NKF-ASN Task force, [facility] is in the process of updating its eGFR calculation to the ??2020 CKD-EPI creatinine equation that estimates kidney function ??without a race variable. Urea nitrogen/Creatinine , Serum/Plasma 10 10 - 24 [facility] 1 Sodium, Serum/Plasma 145(H) 134 - 144 mmol/L [facility] 1 Potassium, Serum/Plasma 5.1 3.5 - 5.2 mmol/L [facility] 1 Chloride, Serum/Plasma 107(H) 96 - 106 mmol/L [facility] 1 Carbon dioxide CO2), total, Serum/Plasma 23 20 - 29 mmol/L [facility] 1 Calcium, Serum/Plasma 9.3 8.6 - 10.2 mg/dL [facility] 1 Phosphate, Serum/Plasma 3.4 2.8 - 4.1 mg/dL [facility] 1 Albumin, Serum/Plasma 4.4 3.7 - 4.7 g/dL [facility] 1 Blood 05/18/2021 6:40 AM PIE BAKERY LABORER 05/17/2021 11:00 PM PIE BAKERY LABORER Narrative [facility] - 05/19/2021 3:35 PM PIE BAKERY LABORER Performed at: ??01 - [facility] [address] ??[id number] Computator: Francisco Javier Stewart PhD, Phone: ??[phone] Yaron Roach MD LAB BLOOD ORDERABLES [facility] 1 * PTH Intact w/o Calcium, Serum (05/18/2021 6:40 AM PIE BAKERY LABORER) PTH, Intact, Serum/Plasma 39 15 - 65 pg/mL [facility] 1 Parathyrin (PTH), intact, Serum/Plasma Comment [facility] 1 Comment: Interpretation ? Intact PTH ?Calcium ?(pg/mL) ?(mg/dL) Normal ?15 - 65 ? 8.6 - 10.2 Primary Hyperparathyroidism ? >65 ?>10.2 Secondary Hyperparathyroidism ? >65 ?<10.2 Non-Parathyroid Hypercalcemia ? <65 ?>10.2 Hypoparathyroidism ?<15 ?< 8.6 Non-Parathyroid Hypocalcemia ?15 - 65 ?< 8.6 Genetic analysis report . [facility] 2 Blood 05/18/2021 6:40 AM PIE BAKERY LABORER 05/17/2021 11:00 PM PIE BAKERY LABORER Narrative [facility] - 05/19/2021 3:35 PM PIE BAKERY LABORER Performed at: ??01 - [facility] [address], [place], [place] ??[id number] Computator: Francisco Javier Stewart PhD, Phone: ??[phone] Performed at: ??02 - [facility] [address] [place], [place] ??[id number] Computator: Cinthya Roper [facility], Phone: ??[phone] Yaron Roach MD LAB BLOOD ORDERABLES [facility] 2 * (ABNORMAL) CBC (includes Differential/Platelets) (05/18/2021 6:40 AM PIE BAKERY LABORER) Pathologist [facility] Leukocytes, Blood 4.2 3.4 - 10.8 x10E3/uL [facility] 1 Erythrocytes (RBC) 4.14 4.14 - 5.80 x10E6/uL [facility] 1 Hemoglobin (HGB) 11.1(L) 13.0 - 17.7 g/dL [facility] 1 Hematocrit (HCT) 35.8(L) 37.5 - 51.0 % [facility] 1 MCV 87 79 - 97 fL [facility] 1 MCH 26.8 26.6 - 33.0 pg [facility] 1 MCHC 31.0(L) 31.5 - 35.7 g/dL [facility] 1 Erythrocyte Distribution Width (RDW) 13.7 11.6 - 15.4 % [facility] 1 Platelets, Blood 295 150 - 450 x10E3/uL [facility] 1 Neutrophils/100 leukocytes, Blood 51 Not Estab. % [facility] 1 Lymphocytes/100 leukocytes, Blood 26 Not Estab. % [facility] 1 Monocytes/100 leukocytes, Blood 16 Not Estab. % [facility] 1 Eosinophils/100 leukocytes, Blood 6 Not Estab. % [facility] 1 Basophils/100 leukocytes, Blood 1 Not Estab. % [facility] 1 Neutrophils, Blood 2.1 1.4 - 7.0 x10E3/uL [facility] 1 Lymphocytes, Blood 1.1 0.7 - 3.1 x10E3/uL [facility] 1 Monocytes, Blood 0.7 0.1 - 0.9 x10E3/uL [facility] 1 Eosinophils, Blood 0.2 0.0 - 0.4 x10E3/uL [facility] 1 Basophils, Blood 0.0 0.0 - 0.2 x10E3/uL [facility] 1 Immature granulocytes/100 leukocytes, Blood 0 Not Estab. % [facility] 1 Immature granulocytes, Blood 0.0 0.0 - 0.1 x10E3/uL [facility] 1 Blood 05/18/2021 6:40 AM PIE BAKERY LABORER 05/17/2021 11:00 PM PIE BAKERY LABORER Narrative [facility] - 05/19/2021 3:35 PM PIE BAKERY LABORER Performed at: ??01 - [facility] [address] ??[id number] Computator: Francisco Javier Stewart PhD, Phone: ??[phone] Yaron Roach MD LAB BLOOD ORDERABLES [facility] 1 documented in this encounter Visit Diagnoses Diagnosis Obstructive sleep apnea syndrome- Primary Stage 3a chronic kidney disease (CMS-HCC) Edema of lower extremity documented in this encounter Care Teams Screen Printing Press Operator Relationship Specialty Start Date End Date Timothy Banks MD [address] [place] [address] PCP - General Family Medicine 11/14/18 documented as of this encounter
--- OUTSIDE RECORDS SUMMARY | 2024-04-09 17:27 | XMS_ITS | Encounter Summary ---
Author Organization [facility] Bert[facility] utiizzy Address [address] [place] [phone] Phone Care Team Providers Care Marketing Teacher Name Role Phone Unavailable Primary Care Provider Unavailabl e Encounter Details Date Type Department Care Team (Late st Contact Info) Description 08/13/2015 Legacy Encounter - [place] [address] Yaron Roach MD [address] [facility], [address] [facility] [place] [address] Social History Tobacco Use Types Packs/Day Years [...] Procedure Name Priority Date/Time Associated Diagnosis Comments MANUALLY ENTERED ORDER Routine 08/13/2015 12:00 AM CDT documented in this encounter Results * (ABNORMAL) Manually Entered Order (08/13/2015 12:00 AM CDT) Creatinine 1.5(H) 0.5 - 1.3 EXTERNAL LAB 08/13/2015 Yaron Roach MD LAB BLOOD ORDERABLES EXTERNAL LAB documented in this encounter Visit Diagnoses Not on filedocumented in this encounter
--- OUTSIDE RECORDS SUMMARY | 2024-04-09 17:27 | XMS_ITS | Clinical Summary ---
Author Organization [facility] Berta valentine Address [address] [place] [address] Phone Care Team Providers Care Stockroom Helper Name Role Phone Timothy Banks MD Primary Care Provider [phone] Allergies No known active allergies Medications Medication Sig Dispensed Refills Start Date End Date Status Cholecalciferol (VITAMIN D3) 1000 units capsule 1 capsule (1,000 units) orally daily 0 11/14/2016 Active albuterol HFA (PROAIR HFA) 108 (90 Base) MCG/ACT inhaler 2 q4=6 prn 0 11/10/2016 Active budesonide-formotero l (SYMBICORT) 160-4.5 MCG/ACT inhaler 2 bid 0 11/10/2016 Active apixaban (ELIQUIS) 5 MG tablet 1 bid 0 11/29/2017 Active folic acid (FOLVITE) 800 MCG tablet 1 daily 0 05/19/2017 Active multivitamin (THERAGRAN) tablet 11/14/2016 Active polyethylene glycol-electrolytes (NULYTELY) 420 g solution MIX AND DRINK UTD BY THE DOCTOR 0 10/13/2018 Active furosemide (LASIX) 20 MG tablet Take 20 mg by mouth 08/28/2018 Act carlos LUMIGAN 0.01 % ophthalmic drops Administer 1 drop into both eyes every night 0 10/15/2018 Active hydrocortisone 2.5 % ointment 10/08/2020 Active Active Problems Problem Noted Date Diagnosed Date Personal history of COVID-19 07/20/2020 Edema of lower extremity 08/28/2018 Obstructive sleep apnea syndrome 08/28/2018 Acute embolism and thrombosi s of unspecified deep veins of right lower extremity 05/17/2017 Stage 3a chronic kidney disease 11/14/2016 Diaphragmatic hernia without obstruction or gang prabhu 11/14/2016 Polyneuropathy 11/14/2016 Cardiac arrhythmia 10/28/2016 Hypertensive left ventricular hypertrophy 2015 Overview (11/10/2018): Hypertensive left ventricular hypertrophy, without heart failure Left ventricular hypertrophy 03/31/2016 Overview (11/10/2018): Left ventricular hypertrophy Thromboembolism of vein 03/31/2016 Overview (11/10/2018): Venous 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 Immunizations Name Administration Dates Next Due Influenza Recombinant Mary valent Injectable Preservative Free 01/25/2019 Influenza Split High Dose Pr eservative Free IM 12/14/2017 Influenza TIV (IM) 12/09/2020,01/09/2020, 019 Influenza, Injectable, Quadrivalent 01/04/2020 Pneumococcal Conjugate 13-Valent 08/27/2015 Pneumococcal Polysaccharide 09/17/2018 Tdap 09/17/2018 Zoster Recombinant 01/04/2020 Family History Medical History Relation Comments Kidney disease Neg Hx Kidney stone Neg Hx Social History Tobacco Use Types Packs/Day Years Used Date Smoking Tobacco: Never Smokeless Tobacco: Never Alcohol Use Standard Drinks/Week Comments Yes 0 (1 standard drink = 0.6 oz pur e alcohol) rare Sex and Gender Information Value Date Recorded Sex Assigned at Male 11/09/2019 9:17 AM MDT Gender Identity Male 11/09/2019 9:17 AM MDT Sexual Orientation Straight 11/04/2020 7: 26 AM MDT Last Filed Vital Signs Vital Sign Reading [...] Mass Index 32.35 11/22/2021 9:06 AM CDT Plan of Treatment Health Maintenance Due Date Last Done Comments COVID-19 Vaccine (2 - 3-2 4 season) 2023 04/14/2021 Influenza Vaccine (#1) 2023 , 01/09/2020, 01/25/2019, Additional history exists Pneumococcal PPSV23/PCV13 65 + Years / High and Highest Risk Completed 09/17/2018, 08/27/2015 Care Teams Stockroom Helper Relationship Specialty Start Date End Date Timothy Banks MD [address] [place] [id number] PCP - General Family Medicine 11/14/18
--- OUTSIDE RECORDS SUMMARY | 2024-04-09 17:27 | XMS_ITS | Encounter Summary ---
Author Organization [facility] Berta utiizzy Address [address] [place] [address] Phone Care Team Providers Care Binder And Wrapper Packer Name Role Phone Unavailable Primary Care Provider Unavailabl e Encounter Details Date Type Department Care Team (Late st Contact Info) Description 11/14/2016 Legacy Encounter - Labs [place] [address] Yaron Roach MD [address] [facility], [address] [facility] [place] [address] Social History Tobacco Use Types Packs/Day Years [...] Diagnosis Comments VITAMIN D, 25-HYDROXY, SERUM Routine 11/14/2016 9:53 AM CDT RENAL FUNCTION PANEL (RFP) Routine 11/14/2016 9:53 AM CDT PTH INTACT AND CALCIUM, SERUM Routine 11/14/2016 9:53 AM CDT documented in this encounter Results * Vitamin D, 25-Hydroxy (11/14/2016 9:53 AM CDT) 25-Hydroxyvitami n D2+25-Hydroxyvit bautista D3, Serum/Plasma 31.1 30.0 - 100.0 ng/mL EXTERNAL LAB Comment: Vitamin D deficiency has been defined by the [place] of Medicine and an Endocrine Society practice guideline as a level of serum 25-OH vitamin D less than 20 ng/mL (1,2). The Endocrine Society went on to further define vitamin D insufficiency as a level between 21 and 29 ng/mL (2). 1. IOM ([place] of Medicine). 2010. Dietary reference ?? intakes for calcium and D. Javier [place]: The ?? National [employer] Sim[employer]ified [employer]. 2. Imtiaz MF, Abiel CRANE, Luc MCKYA, et al. ?? Evaluation, treatment, and prevention of vitamin D ?? deficiency: an Endocrine Society clinical practice ?? guideline. JCEM. 2010; 96(7):1911-30. 11/14/2016 9:53 AM CDT 11/14/2016 Yaron Roach MD LAB BLOOD ORDERABLES EXTERNAL LAB * PTH Intact w/ Calcium (11/14/2016 9:53 AM CDT) Pathologist [facility] PTH, Intact, Serum/Plasma 32 15 - 65 pg/mL EXTERNAL LAB Parathyrin (PTH), intact, Serum/Plasma EXTERNAL LAB Comment: ? Interpretation ? Intact PTH ?Calcium ? (pg/mL) ?(mg/dL) ? Normal ?15 - 65 ? 8.6 - 10.2 ? Primary Hyperparathyroidism ? >65 ?>10.2 ? Secondary Hyperparathyroidism ? >65 ?<10.2 ? Non-Parathyroid Hypercalcemia ? <65 ?>10.2 ? Hypoparathyroidism ?<15 ?< 8.6 ? Non-Parathyroid Hypocalcemia ?15 - 65 ?< 8.6 ? . 11/14/2016 9:53 AM CDT 11/14/2016 Yaron Roach MD LAB BLOOD ORDERABLES EXTERNAL LAB * (ABNORMAL) Renal Function Panel (11/14/2016 9:53 AM CDT) Glucose, Serum/Plasma 79 65 - 99 mg/dL EXTERNAL LAB Urea nitrogen, Serum/Plasma (BUN) 16 8 - 27 mg/dL EX[facility] LAB Creatinine, Serum/Plasma 1.26 0.76 - 1.27 mg/dL EXTERNAL LAB eGFR, non 57(L) >59 mL/min/1.7 3 EXTERNAL LAB eGFR, Serum/Plasma (CKD-EPI) 65 >59 mL/min/1.7 3 EXTERNAL LAB Urea nitrogen/Creati nine, Serum/Plasma 13 10 - 24 EXTERNAL LAB Sodium, Serum/Plasma 142 134 - 144 mmol/L EXTERNAL LAB Potassium, Serum/Plasma 5.3(H) 3.5 - 5.2 mmol/L EXTERNAL LAB Chloride, Serum/Plasma 104 96 - 106 mmol/L EXTERNAL LAB Carbon dioxide CO2), total, Serum/Plasma 25 18 - 29 mmol/L EXTERNAL LAB Calcium, Serum/Plasma 9.4 8.6 - 10.2 mg/dL EXTERNAL LAB Phosphate, Serum/Plasma 2.5 2.5 - 4.5 mg/dL EXTERNAL LAB Albumin, Serum/Plasma 4.6 3.5 - 4.8 g/dL EXTERNAL LAB 11/14/2016 9:53 AM CDT 11/14/2016 Yaron Roach MD LAB BLOOD ORDERABLES EXTERNAL LAB documented in this encounter Visit Diagnoses Not on filedocumented in this encounter
--- OUTSIDE RECORDS SUMMARY | 2024-04-09 17:27 | XMS_ITS | Encounter Summary ---
Author Organization [facility] Berta utiizzy Address [address] [place] [address] Phone Care Team Providers Care Surgical Dental Assistant Name Role Phone Unavailable Primary Care Provider Unavailabl e Encounter Details Date Type Department Care Team (Late st Contact Info) Description 11/05/2018 Orders Only [facility] Nephrology and Hypertension [address] [facility], [address] [address] Yaron Roach MD [address] [facility], [address] [place] [address] Social History Tobacco Use Types Packs/Day Years Used Date Smoking Tobacco: Never Sex and Gender Information Value Date Recorded Sex Assigned at Male 11/09/2019 9:17 AM MDT Gender Identity Male 11/09/2019 9:17 AM MDT Sexual Orientation Straight 11/04/2020 7: 26 AM MDT documented as of this encounter Plan of Treatment Not on file documented as of this encounter Procedures Procedure Name Priority Date/Time Associated Diagnosis Comments CBC (INCLUDES PLATELETS / NO DIFFERENTIAL) Routine 11/05/2018 1:28 PM CDT TOTAL PROTEIN W/ CREATININE, URINE, RANDOM Routine 11/05/2018 1:28 PM CDT VITAMIN D, 25-HYDROXY, SERUM Routine 11/05/2018 1:28 PM CDT RENAL FUNCTION PANEL (RFP) Routine 11/05/2018 1:28 PM CDT PTH INTACT W/O CALCIUM, SERUM Routine 11/05/2018 1:28 PM CDT documented in this encounter Results * PTH Intact w/o Calcium, Serum (11/05/2018 1:28 PM CDT) PTH, Intact, Serum/Plasma 39 15 - 65 pg/mL [facility] 1 11/05/2018 1:28 PM CDT 11/04/2018 11:00 PM CDT Narrative [facility] - 11/06/2018 2:08 PM CDT Performed at: ??01 - [facility] [address], [place], [place] ??[id number] Double Needle Operator: Francisco Javier Stewart PhD, Phone: ??[phone] Yaron Roach MD LAB BLOOD ORDERABLES [facility] * Vitamin D, 25-Hydroxy, Serum (11/05/2018 1:28 PM CDT) 25-Hydroxyvitami n D2+25-Hydroxyvit bautista D3, Serum/Plasma 36.4 30.0 - 100.0 ng/mL [facility] 1 Comment: Vitamin D deficiency has been defined by the [place] of Medicine and an Endocrine Society practice guideline as a level of serum 25-OH vitamin D less than 20 ng/mL (1,2). The Endocrine Society went on to further define vitamin D insufficiency as a level between 21 and 29 ng/mL (2). 1. IOM ([place] of [employer]). 2010. Dietary reference ?? intakes for calcium and D. Javier [place]: The ?? National Academies Press. 2. Imtiaz MF, Abiel [place], Luc MCKAY, et al. ?? Evaluation, treatment, and prevention of vitamin D ?? deficiency: an Endocrine Society clinical practice ?? guideline. JCEM. 2010; 96(7):1911-30. 11/05/2018 1:28 PM CDT 11/04/2018 11:00 PM CDT Narrative [facility] - 11/06/2018 2:08 PM CDT Performed at: ??01 - [facility] ??[id number] Double Needle Operator: Francisco Javier Stewart PhD, Phone: ??[phone] Yaron Roach MD LAB BLOOD ORDERABLES Performing Organization Address [facility] de Phone Number [facility] 1 * Total Protein w/ Creatinine, Urine, Random (11/05/2018 1:28 PM CDT) Pathologist [facility] Creatinine, Urine 119.8 Not Estab. mg/dL [facility] 1 Protein, Urine 9.5 Not Estab. mg/dL [facility] 1 Protein/Creatin ine, Urine 79 0 - 200 mg/g creat [facility] 1 11/05/2018 1:28 PM CDT 11/04/2018 11:00 PM CDT Narrative [facility] - 11/06/2018 2:08 PM CDT Performed at: ??01 - [facility] ??[id number] Double Needle Operator: Francisco Javier Stewart PhD, Phone: ??[phone] Yaron Roach MD LAB URINE ORDERABLES Performing Organization Address [facility] Phone Number [facility] 1 * (ABNORMAL) CBC (includes Platelets / NO Differential) (11/05/2018 1:28 PM CDT) Pathologist [facility] Leukocytes, Blood 5.2 3.4 - 10.8 x10E3/uL [facility] 1 Erythrocytes, Blood 4.53 4.14 - 5.80 x10E6/uL [facility] 1 Hemoglobin (HGB) 12.8(L) 13.0 - 17.7 g/dL [facility] 1 Hematocrit of Blood 38.3 37.5 - 51.0 % [facility] 1 MCV 85 79 - 97 fL [facility] 1 MCH 28.3 26.6 - 33.0 pg [facility] 1 MCHC 33.4 31.5 - 35.7 g/dL [facility] 1 Red CEll Distribution Width (RDW-CV) % 14.4 12.3 - 15.4 % [facility] 1 Platelets, Blood 335 150 - 450 x10E3/uL [facility] 1 11/05/2018 1:28 PM CDT 11/04/2018 11:00 PM CDT Narrative [facility] - 11/06/2018 2:08 PM CDT Performed at: ??01 - [facility], [place], [place] ??[id number] Double Needle Operator: Francisco Javier Stewart PhD, Phone: ??[phone] Yaron Roach MD LAB BLOOD ORDERABLES [facility] * (ABNORMAL) Renal Function Panel (RFP) (11/05/2018 1:28 PM CDT) Glucose, Serum/Plasma 109(H) 65 - 99 mg/dL [facility] 1 Urea nitrogen, Serum/Plasma (BUN) 17 8 - 27 mg/dL [facility] 1 Creatinine, Serum/Plasma 1.64(H) 0.76 - 1.27 mg/dL [facility] 1 eGFR, non 41(L) >59 mL/min/1.7 3 [facility] 1 eGFR, 47(L) >59 mL/min/1.7 3 [facility] 1 Urea nitrogen/Creat inine, Serum/Plasma 10 10 - 24 [facility] 1 Sodium, Serum/Plasma 142 134 - 144 mmol/L [facility] 1 Potassium, Serum/Plasma 5.3(H) 3.5 - 5.2 mmol/L [facility] 1 Chloride, Serum/Plasma 104 96 - 106 mmol/L [facility] 1 Carbon dioxide CO2), total, Serum/Plasma 23 20 - 29 mmol/L [facility] 1 Calcium, Serum/Plasma 9.4 8.6 - 10.2 mg/dL [facility] 1 Phosphate, Serum/Plasma 3.4 2.5 - 4.5 mg/dL [facility] 1 Albumin, Serum/Plasma 4.5 3.5 - 4.8 g/dL [facility] 1 11/05/2018 1:28 PM CDT 11/04/2018 11:00 PM CDT Narrative [facility] - 11/06/2018 2:08 PM CDT Performed at: ??01 - [facility] [address], [place], [place] ??[id number] Double Needle Operator: Francisco Javier Stewart PhD, Phone: ??[phone] Yaron Roach MD LAB BLOOD ORDERABLES Performing Organization Address City/State/[facility] Co de Phone Number [facility] 1 documented in this encounter Visit Diagnoses Not on filedocumented in this encounter
--- OUTSIDE RECORDS SUMMARY | 2024-04-09 17:27 | XMS_ITS | Encounter Summary ---
Author Organization [facility] Address [address] [place] [address] Phone Care Team Providers Care Radio Commentator Name Role Phone Timothy Banks MD Primary Care Provider [phone] Encounter Details Date Type Department Care Team (Late st Contact Info) Description 11/14/2018 9:15 AM CDT Office Visit [facility] Nephrology and Hypertension [address] [place] [address], [address] [place] [address] Yraon Roach MD [address] [facility], [address] [place] [address] Chronic kidney disease, stage 3 (moderate) (Primary Dx) Social History Tobacco Use Types Packs/Day Years Used Date Smoking Tobacco: Never Sex and Gender Information Value Date Recorded Sex Assigned at Male 11/09/2019 9:17 AM MDT Gender Identity Male 11/09/2019 9:17 AM MDT Sexual Orientation Straight 11/04/2020 7: 26 AM MDT documented as of this encounter Last Filed Vital Signs Vital Sign Reading Time Taken Comments Blood Pressure 118/72 11/14/2018 9:26 AM CDT Pulse 72 11/14/2018 9:26 AM CDT Temperature 36.1 ??C (97 ??F) 11/14/2018 9:26 AM CDT Respiratory Rate - - Oxygen Saturation - - Inhaled Oxygen Concentration - - Weight 113 kg (249 lb) 11/14/2018 9:26 AM CDT Height 188 cm (6' 2 ) 11/14/2018 9:26 AM CDT Body Mass Index 31.97 11/14/2018 9:26 AM CDT documented in this encounter Progress Notes * Yaron Roach MD - 11/14/2018 9:15 AM CDT Russ Kern is a pleasant 73 y.o.male. Copy: John Ramirez M.D. Russ is a very pleasant gentleman who is here to follow for ckd. unclear etioilogy. stable for Decades. no urinary issues. Avoiding excess protein. some nocturia. seeing Dr Balbuena. Takes an occasional furosemide if he has [...] as above BP 118/72 Pulse 72 Temp 97 ??F (36.1 ??C) Ht 6' 2 (1.88 m) Wt 249 lb (113 kg) BMI 31.97 kg/m?? BSA 2.43 m?? WDWN male in NAD Skin No rash Head NCAT Neck No nodes, No TMG Lungs Clear to Auscultation Cor RRR no rub or gallop Abd BS+ nontender and soft. Ext 1+ edema, Psyche normal not depressed or anxious Recent Labs: 11/05/18 Vit d 36, Upro 79 Lab Results Component Value Date EGFR 41 (L) 11/05/2018 CREATININE 1.64 (H) 11/05/2018 CREATININEUR 119.8 11/05/2018 CHOL 137 11/22/2017 LDL 76 11/22/2017 HDL 42 11/22/2017 TRIG 93 11/22/2017 GLUCOSE 109 (H) 11/05/2018 PTH 39 11/05/2018 HCT 38.3 11/05/2018 BUN 17 11/05/2018 NA 142 11/05/2018 K 5.3 (H) 11/05/2018 CL 104 11/05/2018 CO2 23 11/05/2018 ALBUMIN 4.5 11/05/2018 CA 9.4 11/05/2018 Impression: Russ has chronic kidney disease. Creat is stable. Etiology is unknown. He had been seen by Dr Laws at [place] for years and was told that the etiology is unclear. He does not have diabetes nor hypertension. However his evaluation was negative and because things have been so stable he did not have a biopsy. He was told to stay well hydrated. To preserve renal function: Blood pressure this is well controlled. Cholesterol good VIANEY/ARB no protein nor dm nor HTN so no need for this since stable. Low protein diet Vitamin D/PTH this is good. Stay well hydrated No NSAIDs his BMI is too high. he should lose weight. consider manager acute or seeing PCP. he had the pneumonia [...] it is okay. copy of note sent to him. Patient has a living will/DPOA. The person [...] Urine, Random; Future Body mass index is 31.97 kg/m??. Follow up plan to address BMI is too high see above. documented in this encounter Plan of Treatment Not on file documented as of this encounter Procedures Procedure Name Priority Date/Time Associated Diagnosis Comments TOTAL PROTEIN W/ CREATININE, URINE, RANDOM Routine 05/07/2019 6:14 AM BORING INSPECTOR Chronic kidney disease, stage 3 (moderate) ([facility]) RENAL FUNCTION PANEL (RFP) Routine 05/07/2019 6:14 AM BORING INSPECTOR Chronic kidney disease, stage 3 (moderate) ([facility]) documented in this encounter Results * (ABNORMAL) Total Protein w/ Creatinine, Urine, Random (05/07/2019 6:14 AM BORING INSPECTOR) Creatinine, Urine 65.2 Not Estab. mg/dL [facility] 1 Protein, Urine <4.0 Not Estab. mg/dL [facility] Comment:Verified by repeat analysis Protein/Creatinin e, Urine Comment(A ) 0 - 200 mg/g creat [facility] 1 Comment: This result is below the assay's limit of quantitation indicating a dilute specimen, potentially due to diurnal variation. ??Consider recollection at a time likely to provide a more concentrated urine. 05/07/2019 6:14 AM BORING INSPECTOR 05/06/2019 11:00 PM BORING INSPECTOR Narrative [facility] - 05/08/2019 10:09 AM BORING INSPECTOR Performed at: ??01 - [facility] [address] ??[id number] Bench Grinder: Francisco Javier Stewart PhD, Phone: ??[phone] Yaron Roach MD LAB URINE ORDERABLES [facility] * (ABNORMAL) Renal Function Panel (RFP) (05/07/2019 6:14 AM BORING INSPECTOR) Glucose, Serum/Plasma 117(H) 65 - 99 mg/dL [facility] 1 Urea nitrogen, Serum/Plasma (BUN) 17 8 - 27 mg/dL [facility] 1 Creatinine, Serum/Plasma 1.44(H) 0.76 - 1.27 mg/dL [facility] 1 eGFR, non 47(L) >59 mL/min/1.7 3 [facility] 1 eGFR, 55(L) >59 mL/min/1.7 3 [facility] 1 Urea nitrogen/Creat inine, Serum/Plasma 12 10 - 24 [facility] 1 Sodium, Serum/Plasma 144 134 - 144 mmol/L [facility] 1 Potassium, Serum/Plasma 5.1 3.5 - 5.2 mmol/L [facility] 1 Chloride, Serum/Plasma 104 96 - 106 mmol/L [facility] 1 Carbon dioxide CO2), total, Serum/Plasma 22 20 - 29 mmol/L [facility] 1 Calcium, Serum/Plasma 9.2 8.6 - 10.2 mg/dL [facility] 1 Phosphate, Serum/Plasma 4.0 2.8 - 4.1 mg/dL [facility] 1 Comment:Please note refere nce interval change Albumin, Serum/Plasma 4.3 3.7 - 4.7 g/dL [facility] 1 Comment:Please note refere nce interval change Blood 05/07/2019 6:14 AM BORING INSPECTOR 05/06/2019 11:00 PM BORING INSPECTOR Narrative [facility] - 05/08/2019 10:09 AM BORING INSPECTOR Performed at: ??01 - [facility] [address] ??[id number] Bench Grinder: Francisco Javier Stewart PhD, Phone: ??[phone] Yaron Roach MD LAB BLOOD ORDERABLES [facility] 1 documented in this encounter Visit Diagnoses Diagnosis Chronic kidney disease, stage 3 (moderate)- Primary documented in this encounter Care Teams Radio Commentator Relationship Specialty Start Date End Date Timothy Banks MD [address] [place] [id number] PCP - General Family Medicine 11/14/18 documented as of this encounter
--- OUTSIDE RECORDS SUMMARY | 2024-04-09 17:27 | XMS_ITS | Encounter Summary ---
Author Organization [facility] Address [address] [facility] [place] [address] Care Team Providers Care Death Clearance Coordinator Name Role Phone Timothy Banks MD Primary Care Provider [phone] Cindy Garcia MD Unavailable Encounter Details Date Type Department Care Team (Late st Contact Info) Description 02/12/2024 Lab Requisition [facility] - Pathology Lab [address] [place] [address] Rommel Dinh MD [address] [facility] [address] [place] [address] Decreased white blood cell count, unspecified Social History Tobacco Use Types Packs/Day Years Used Date Smoking Tobacco: Never Assessed Sex and Gender Information Value Date Recorded Sex Assigned at Male 03/05/2024 8:04 AM INSTRUCTOR ADJUNCT SURGICAL TECHNICIAN Gender Identity Male 03/05/2024 8:04 AM INSTRUCTOR ADJUNCT SURGICAL TECHNICIAN Sexual Orientation Straight 03/05/2024 8: 04 AM INSTRUCTOR ADJUNCT SURGICAL TECHNICIAN documented as of this encounter Plan of Treatment Upcoming Encounters Date Type Department Care Team (Late st Contact Info) Description 04/11/2024 8:00 AM INSTRUCTOR ADJUNCT SURGICAL TECHNICIAN Hospital Encounter [facility] [address] [place] [id number] Cindy Garcia MD [address] [place] [address] 04/15/2024 8:30 AM INSTRUCTOR ADJUNCT SURGICAL TECHNICIAN Hospital Encounter [facility] [address] [place] [address] 04/16/2024 9:00 AM INSTRUCTOR ADJUNCT SURGICAL TECHNICIAN Hospital Encounter [facility] [address] [place] [address] 04/17/2024 8:30 AM INSTRUCTOR ADJUNCT SURGICAL TECHNICIAN Appointment [facility] [address] [place] [address] 04/18/2024 9:30 AM INSTRUCTOR ADJUNCT SURGICAL TECHNICIAN Appointment [facility] [address] [place] [address] 04/18/2024 10:30 AM INSTRUCTOR ADJUNCT SURGICAL TECHNICIAN Office Visit [facility] - Hematology/Oncology [address] [place] [address] Cindy Garcia MD [address] [place] [address] 04/19/2024 9:00 AM INSTRUCTOR ADJUNCT SURGICAL TECHNICIAN Appointment [facility] [address] [place] [address] 05/13/2024 9:00 AM INSTRUCTOR ADJUNCT SURGICAL TECHNICIAN Appointment [facility] [address] [place] [address] documented as of this encounter Procedures Procedure Name Priority Date/Time Associated Diagnosis Comments FLOW CYTOMETRY BONE MARROW Routine 02/12/2024 9:20 AM INSTRUCTOR ADJUNCT SURGICAL TECHNICIAN Decreased white blood cell count, unspecified documented in this encounter Results * FLOW CYTOMETRY BONE MARROW (02/12/2024 9:20 AM INSTRUCTOR ADJUNCT SURGICAL TECHNICIAN) [facility] Case Report Flow Cytometry ?Case: [id number] ? Authorizing Provider: ??Rommel Dinh ? Collected: ? 02/12/2024 09:20 AM ? MD Luke ? Ordering Location: ? [facility] - ??Received: ?02/12/2024 12:12 PM ? Pathology Lab ? Pathologist: ? Daniela Bronson MD ? Specimen: ?Bone Marrow ? 02/12/2024 3:44 PM [facility] Final Diagnosis Bone marrow, flow cytometric immunophenotyping: - 35% myeloblasts identified (20% by morphology), see comment - No diagnostic immunophenotypic evidence of monoclonal B-cells, an aberrant T-cell population, or plasma cell neoplasm Comment: Flow cytometry identifies 35% myeloblasts (20% are identified by aspirate smear review). While technically this percentage of blast fulfills diagnostic criteria for acute myeloid leukemia (AML), per the oncologist's consult note, the patient received Neupogen while hospitalized for diverticulitis in January. This therapy could account for the increased percentage of myeloblasts and therefore may be reactive rather than neoplastic. Correlation with clinical history, morphologic review the bone marrow, and cytogenetic/molecu lar analysis is required. This case was discussed with Dr. Morton on 02/12/2024 at 1539. 02/12/2024 3:44 PM [facility] Flow Cytometry Interpretation Viability: 97% B-cells: 6% of lymphocytes, polytypic, kappa:lambda ratio 1.1:1 T-cells: no diagnostic immunophenotypic aberrancy detected, CD4:CD8 ratio 0.9:1 Blasts: detected, 35%, express CD34, CD33, CD13, CD11c, CD117, and myeloperoxidase without significant HLA-DR or B- or T-cell antigen expression Plasma cells: no significant population detected MRD sent: No A bone marrow aspirate smear prepared from the flow cytometry specimen has been reviewed for quality assurance associate purposes. Review the bone marrow aspirate smears reveals 20% blasts with only rare promyelocytes identified. Carolyn rods are not seen. 02/12/2024 3:44 PM [facility] Flow Cytometry Results Differential Result Comment Flow Cell Count /uL 20,700 Total Viability % 97.0 Lymphocytes % 12 Dim CD45 Region % 44 Monocytes % 1 Granulocytes % 42 02/12/2024 3:44 PM [facility] Reason for test Decreased white blood cell count, unspecified 02/12/2024 3:44 PM [facility] Client Specimen ID # [id number] 02/12/2024 3:44 PM [facility] Number of markers 29 were performed. A-1 Flow CD2 A-2 Flow CD3 A-3 Flow CD4 A-7 Flow CD1a A-9 Flow CD10 A-10 Flow CD13 A-12 Flow CD20 A-18 Flow CD14 A-21 Flow CD117 A-22 Flow CD11b A-23 Flow CD11c A-4 Flow CD5 A-5 Flow CD7 A-6 Flow CD8 A-8 Flow CD30 A-11 Flow CD19 A-13 Flow CD33 A-14 Flow CD34 A-15 Flow CD45 A-19 Flow CD56 A-20 Flow CD64 A-28 cyCD22 A-29 imDV88b A-16 [place]+CD19+ A-17 Lambda+CD19+ A-24 Flow HLA-DR A-25 Flow MPO A-26 Flow TdT A-27 cyCD3 02/12/2024 3:44 PM [facility] Pathologist Location at [facility] 02/12/2024 3:44 PM [facility] Disclaimer Test performed at [facility], [address] [place], [place], [address]. *The established laboratory minimum viability is 70%. [...] qualified to perform high complexity clinical testing. 02/12/2024 3:44 PM [facility] Embedded Images 3:44 PM [facility] Pathology/Cytolo gy BONE MARROW SPECIMEN / Unknown 02/12/2024 9:20 AM INSTRUCTOR ADJUNCT SURGICAL TECHNICIAN 02/12/2024 12:12 PM INSTRUCTOR ADJUNCT SURGICAL TECHNICIAN Rommel Dinh MD LAB - PATHO LOGY/CYTOLOGY ORDERABLES [facility] PATHOLOGY LAB [address] [facility] [place] [address], [facility] [phone] documented in this encounter Visit Diagnoses Diagnosis Decreased white blood cell count, unspecified documented in this encounter Care Teams Death Clearance Coordinator Relationship Specialty Start Date End Date Timothy Banks MD [address] [place] [address] PCP - General 10/19/18 Cindy Garcia MD [address] [place] [address] Publications Writer/Oncologis t Hematology and Oncology 03/24/24 documented as of this encounter
--- OUTSIDE RECORDS SUMMARY | 2024-04-09 17:28 | XMS_ITS | Encounter Summary ---
Author Organization [facility] Address [address] [place] [address] Care Team Providers Care Health Information Administrator Name Role Phone Timothy Banks MD Primary Care Provider [phone] Encounter Details Date Type Department Care Team (Late st Contact Info) Description 04/02/2024 Orders Only [facility] Oncology and Hematology - [place] [address] [facility] [address] [facility] [address] [place] [address] Frank Singh MD [address] [facility] [address] [place] [address] 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 achieved remission Social History Tobacco Use Types Packs/Day Years Used Date Smoking Tobacco: Never Smokeless Tobacco: Never Alcohol Use Standard Drinks/Week Comments Yes 0 (1 standard drink = 0.6 oz pur e alcohol) Very Ocasionally Sex and Gender Information Value Date Recorded Sex Assigned at Male 04/05/2024 3:07 PM RECRUITING CONSULTANT Gender Identity Male 04/05/2024 3:07 PM RECRUITING CONSULTANT Sexual Orientation Not on file documented as of this encounter Plan of Treatment Not on file documented as of this encounter Visit Diagnoses Diagnosis 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 achieved remission documented in this encounter Care Teams Health Information Administrator Relationship Specialty Start Date End Date Timothy Banks MD [address] [place] [address] PCP - General Family Practice 02/01/24 documented as of this encounter
--- OUTSIDE RECORDS SUMMARY | 2024-04-09 17:28 | XMS_ITS | Encounter Summary ---
Author Organization [facility]3] [email or web address] [facility] Address [address] [place] [address] Care Team Providers Care Fiber Analyst Name Role Phone Timothy Banks MD Primary Care Provider [phone] Encounter Details Date Type Department Care Team (Late st Contact Info) Description 04/01/2024 Orders Only [facility] Oncology and Hematology - [place] [address] [facility] [address] [place] [address] Frank Singh MD [address] [facility] [address] [place] [address] 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 achieved remission Social History Tobacco Use Types Packs/Day Years Used Date Smoking Tobacco: Never Smokeless Tobacco: Never Alcohol Use Standard Drinks/Week Comments Yes 0 (1 standard drink = 0.6 oz pur e alcohol) Very Ocasionally Sex and Gender Information Value Date Recorded Sex Assigned at Male 04/05/2024 3:07 PM INSTITUTION LIBRARIAN Gender Identity Male 04/05/2024 3:07 PM INSTITUTION LIBRARIAN Sexual Orientation Not on file documented as of this encounter Plan of Treatment Not on file documented as of this encounter Visit Diagnoses Diagnosis 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 achieved remission documented in this encounter Care Teams Fiber Analyst Relationship Specialty Start Date End Date Timothy Banks MD [address] [place] [address] PCP - General Family Practice 02/01/24 documented as of this encounter
--- OUTSIDE RECORDS SUMMARY | 2024-04-09 17:28 | XMS_ITS | Encounter Summary ---
Author Organization [facility] [employer] [facility] Address [address] [place] [address] Care Team Providers Care Radio Repairman Name Role Phone Timothy Banks MD Primary Care Provider [phone] Encounter Details Date Type Department Care Team (Late st Contact Info) Description 03/25/[address] [facility] Oncology and Hematology - [place] [address] [facility] [address] [place] [address] Frank Singh MD [address] [facility] [address] [place] [address] 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 achieved remission Social History Tobacco Use Types Packs/Day Years Used Date Smoking Tobacco: Never Smokeless Tobacco: Never Alcohol Use Standard Drinks/Week Comments Yes 0 (1 standard drink = 0.6 oz pur e alcohol) Very Ocasionally Sex and Gender Information Value Date Recorded Sex Assigned at Male 04/05/2024 3:07 PM SPA MANAGER Gender Identity Male 04/05/2024 3:07 PM SPA MANAGER Sexual Orientation Not on file documented as of this encounter Plan of Treatment Not on file documented as of this encounter Visit Diagnoses Diagnosis 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 achieved remission documented in this encounter Care Teams Radio Repairman Relationship Specialty Start Date End Date Timothy Banks MD [address] [place] [place] [address] PCP - General Family Practice 02/01/24 documented as of this encounter
--- OUTSIDE RECORDS SUMMARY | 2024-04-09 17:28 | XMS_ITS | Encounter Summary ---
Author Organization [facility] Address [address] [place] [address] Care Team Providers Care Commercial Kitchen Service Technician Name Role Phone Timothy Banks MD Primary Care Provider [phone] Encounter Details Date Type Department Care Team (Late st Contact Info) Description 03/28/2024 Orders Only [facility] Oncology and Hematology - [place] [address] [facility] [address] [place] [address] Frank Singh MD [address] [facility] [address] [place] [address] Social History Tobacco Use Types Packs/Day Years Used Date Smoking Tobacco: Never Smokeless Tobacco: Never Alcohol Use Standard Drinks/Week Comments Yes 0 (1 standard drink = 0.6 oz pur e alcohol) Very Ocasionally Sex and Gender Information Value Date Recorded Sex Assigned at Male 04/05/2024 3:07 PM ACCOUNTANT HELPER Gender Identity Male 04/05/2024 3:07 PM ACCOUNTANT HELPER Sexual Orientation Not on file documented as of this encounter Plan of Treatment Not on file documented as of this encounter Procedures Procedure Name Priority Date/Time Associated Diagnosis Comments BASIC METABOLIC PANEL Routine 03/28/2024 1:31 PM ACCOUNTANT HELPER CBC WITH DIFFERENTIAL Routine 03/28/2024 1:23 PM ACCOUNTANT HELPER documented in this encounter Results * BASIC METABOLIC PANEL (03/28/2024 1:31 PM ACCOUNTANT HELPER) Blood Frank Singh MD CHEMISTRY ORDERABLES * CBC WITH DIFFERENTIAL (03/28/2024 1:23 PM ACCOUNTANT HELPER) Blood Frank Singh MD HEMATOLOGY ORDERABLE S documented in this encounter Visit Diagnoses Not on filedocumented in this encounter Care Teams Commercial Kitchen Service Technician Relationship Specialty Start Date End Date Timothy Banks MD [address] [place] [address] PCP - General Family Practice 02/01/24 documented as of this encounter
--- OUTSIDE RECORDS SUMMARY | 2024-04-09 17:28 | XMS_ITS | Clinical Summary ---
Author Organization [facility] Meka Hayes Address [address] [place] [address] Care Team Providers Care Proposal Manager Writer Name Role Phone Timothy Banks MD Primary Care Provider [phone] Allergies Active Allergy Reactions Criticality Noted Date Comments Iodinated Contrast Media Hives High 02/01/2024 Medications Medication Sig Dispensed Refills Start Date End Date Status diltiaZEM (CARDIZEM CD) 120 mg Controlled Delivery 24 hour capsule Take 120 mg by mouth daily. Active lansoprazole (PREVACID) 30 mg Capsule, Delayed Release(E.C.) Take 30 mg by mouth daily. 12/13/2023 Active folic acid (FOLVITE) 400 mcg Tablet Take 400 mcg by mouth daily. Active cholecalciferol, Vitamin D3, (VITAMIN D3) 25 mcg (1,000 unit) Capsule Take 25 Capsules by mouth daily. Active apixaban (ELIQUIS) 5 mg tablet Take 5 mg by mouth 2 times daily. 01/05/2024 04/04/2024 Active Problems No known active problems Encounters Date Type Department Care Team Description 04/09/2024 Orders Only [facility] - [place] [address] [place] [address] Frank Singh MD 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 achieved remission 04/08/2024 Orders Only [facility] [place] [address] [place] [address] Frank Singh MD 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 achieved remission 04/05/2024 Orders Only [facility] - [place] [address] [place] [address] Frank Singh MD 04/02/2024 Orders Only [facility] - [place] [address] Frank Singh MD 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 achieved remission 04/01/2024 Orders Only [facility] - [place] [address] [place] [address] Frank Singh MD 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 achieved remission 03/28/2024 Orders Only [facility] [place] [address] [place] [address] Frank Singh MD 03/28/2024 Nurse Triage [facility] [place] [address] [place] [address] Frank Singh MD 03/26/2024 Orders Only [facility] [place] [address] [place] [address] Frank Singh MD 03/25/2024 Telephone [facility] [place] [address] [place] [address] Frank Singh MD Lab Results 03/25/2024 Orders Only [facility] [place] [address] [place] [phone] Frank Singh MD 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 achieved remission 03/22/2024 Telephone [facility] [address] Frank Singh MD Chemotherapy 03/22/2024 Telephone [facility] [place] [address] Frank Singh MD error 02/26/2024 4:30 PM MASTER LAY OUT SPECIALIST Telephone Check Up [facility] [place] [address] [place] [address] Frank Singh MD Chronic anemia (Primary Dx) 02/22/2024 Telephone [facility] [place] [address] [place] [address] Frank Singh MD Referral 02/21/2024 Orders Only [facility] [place] [address] [place] [address] Frank Singh MD 02/16/2024 Orders Only [facility] [place] [address] [place] [address] Scanning, Provider 02/06/2024 External Device Data STL ABSTRACTION Provider, Abstract 02/02/2024 Telephone [facility] [place] [address] [place] [address] Frank Singh MD Biopsy 02/02/2024 Orders Only [facility] [place] [address] [place] [address] Frank Singh MD 02/01/2024 1:30 PM CDT Office Visit [facility] [place] [place] [address] Frank Singh MD Chronic anemia (Primary Dx) 02/01/2024 Orders Only [facility] [place] [address] [place] [address] Frank Singh MD Chronic anemia (Primary Dx); Leukopenia, unspecified type from Last 3 Months Family History Medical History Relation Name Comments Heart Disease Brother No Known Problems Father No Known Problems Mother No Known Problems Sister Relation Name Status Comments Brother Father Mother Sister Social History Tobacco Use Types Packs/Day Years Used Date Smoking Tobacco: Never Smokeless Tobacco: Never Alcohol Use Standard Drinks/Week Comments Yes 0 (1 standard drink = 0.6 oz pur e alcohol) Very Ocasionally Sex and Gender Information Value Date Recorded Sex Assigned at Male 04/05/2024 3:07 PM MASTER LAY OUT SPECIALIST Gender Identity Male 04/05/2024 3:07 PM MASTER LAY OUT SPECIALIST Sexual Orientation Not on file Last Filed Vital Signs Vital Sign Reading Time Taken Comments Blood Pressure 121/79 02/01/2024 1:39 PM CDT Pulse 69 02/01/2024 1:39 PM CDT Temperature 36.6 ??C (97.8 ??F) 02/01/2024 1:39 PM CD T Respiratory Rate 15 02/01/2024 1:39 PM CDT Oxygen Saturation 96% 02/01/2024 1:39 PM CDT Inhaled Oxygen Concentration - - Weight 100.4 kg (221 lb 6.4 oz) 02/01/2024 1:39 PM CDT Height 182.9 cm (6') 02/01/2024 1:39 PM CDT Body Mass Index 30.03 02/01/2024 1:39 PM CDT Plan of Treatment Health Maintenance Due Date Last Done Comments RSV VACCINE (60+ or ) (1 - 1-dose 75+ series) 11/04/2019 ZOSTER VACCINE (2 of 2) 02/29/2020 01/04/2020 INFLUENZA VACCINE (#1) 2023 , 01/09/2020, 01/04/2020, Additional history exists COVID-19 Vaccine (2 - 2023-2 5 season) 2023 04/14/2021 DTAP/TDAP/TD VACCINES (2 - T d or Tdap) 09/17/2028 09/17/2018 PNEUMOCOCCAL VACCINE 65+ YEARS Completed 09/17/2018 , 08/27/2015 Procedures Procedure Name Priority Date/Time Associated Diagnosis Comments BASIC METABOLIC PANEL Routine 04/04/2024 3:39 PM MASTER LAY OUT SPECIALIST CBC WITH DIFFERENTIAL Routine 04/04/2024 1:55 PM MASTER LAY OUT SPECIALIST BASIC METABOLIC PANEL Routine 04/01/2024 10:11 AM MASTER LAY OUT SPECIALIST CBC MIXED CELL DIFFERENTIAL Routine 04/01/2024 9:00 AM MASTER LAY OUT SPECIALIST BASIC METABOLIC PANEL Routine 03/28/2024 1:31 PM MASTER LAY OUT SPECIALIST CBC WITH DIFFERENTIAL Routine 03/28/2024 1:23 PM MASTER LAY OUT SPECIALIST BASIC METABOLIC PANEL Routine 03/25/2024 1:24 PM MASTER LAY OUT SPECIALIST CBC WITH DIFFERENTIAL Routine 03/25/2024 1:23 PM MASTER LAY OUT SPECIALIST CBC WITH DIFFERENTIAL Routine 03/25/2024 10:28 AM MASTER LAY OUT SPECIALIST CHROMOSOME ANALYSIS, AMNIOTIC FLUID Routine 02/21/2024 1:39 PM MASTER LAY OUT SPECIALIST FLOW CYTOMETRY PANEL Routine 02/12/2024 2:53 PM MASTER LAY OUT SPECIALIST BONE MARROW ASPIRATION & BIOPSY Routine 02/12/2024 7:45 AM MASTER LAY OUT SPECIALIST BASIC METABOLIC PANEL Routine 02/01/2024 1:36 PM CDT CBC WITH DIFFERENTIAL Routine 02/01/2024 12:49 PM CDT from Last 3 Months Results * BASIC METABOLIC PANEL (04/04/2024 3:39 PM MASTER LAY OUT SPECIALIST) Only the most recent of5 resultswithin the time period is included. Blood Frank Singh MD CHEMISTRY ORDERABLES * CBC WITH DIFFERENTIAL (04/04/2024 1:55 PM MASTER LAY OUT SPECIALIST) Only the most recent of5 resultswithin the time period is included. Blood Frank Singh MD HEMATOLOGY ORDERABLE S * CBC MIXED CELL DIFFERENTIAL (04/01/2024 9:00 AM MASTER LAY OUT SPECIALIST) Blood Frank Singh MD HEMATOLOGY ORDERABLE S * CHROMOSOME ANALYSIS, AMNIOTIC FLUID (02/21/2024 1:39 PM MASTER LAY OUT SPECIALIST) Amniotic fluid AMNIOTIC FLUID / Unknown Frank Singh MD BODY FLUIDS AND STOO LS * FLOW CYTOMETRY PANEL (02/12/2024 2:53 PM MASTER LAY OUT SPECIALIST) Provider Scanning PATHOLOGY/CYTOLOGY O RDERABLES * BONE MARROW ASPIRATION AND BIOPSY (02/12/2024 7:45 AM MASTER LAY OUT SPECIALIST) Bone marrow Frank Singh MD PATH/CYTO ORDERABLES COM from Last 3 Months Care Teams Proposal Manager Writer Relationship Specialty Start Date End Date Timothy Banks MD [address] [place] [id number] PCP - General Family Practice 02/01/24
--- OUTSIDE RECORDS SUMMARY | 2024-04-09 17:28 | XMS_ITS | Encounter Summary ---
Author Organization [facility] [employer] [facility] Address [address] [place] [address] Care Team Providers Care Vehicle Inspector Name Role Phone Timothy Banks MD Primary Care Provider [phone] Encounter Details Date Type Department Care Team (Late st Contact Info) Description 02/26/2024 4:30 PM BAND LEADER Telephone Check Up [facility] Oncology and Hematology - [place] [address] [facility] [address] [place] [address] Frank Singh MD [address] [facility] [address] [place] [address] Chronic anemia (Primary Dx) Social History Tobacco Use Types Packs/Day Years Used Date Smoking Tobacco: Never Smokeless Tobacco: Never Alcohol Use Standard Drinks/Week Comments Yes 0 (1 standard drink = 0.6 oz pur e alcohol) Very Ocasionally Sex and Gender Information Value Date Recorded Sex Assigned at Male 04/05/2024 3:07 PM BAND LEADER Gender Identity Male 04/05/2024 3:07 PM BAND LEADER Sexual Orientation Not on file documented as of this encounter Progress Notes * Frank Singh MD - 02/26/2024 5:57 PM CST HEMATOLOGY / ONCOLOGY PROGRESS NOTE Patient Identification: Name: Russ Kern Age: 78 y.o. 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 CURRENT TREATMENT Expectant TREATMENT HISTORY SUBJECTIVE This is a phone visit with patient. He denies any excessive tiredness and fatigue. No fevers and chills. No bleeding and bruising. No other new complaints. Review of system Constitutional: Patient did not mention fevers, sweats, fatigue, malaise, weight loss HEENT: Patient did not mention sinus congestion, hearing or vision problems Respiratory: Patient did not mention cough, dyspnea, wheeze Cardiovascular: Patient did not mention chest pain, exertional chest pressure/discomfort, nausea, syncope, shortness of breath GI: Patient did not mention constipation, diarrhea, dsyphagia, reflux symptoms, vomiting, melena : Patient did not mention dysuria, frequency, incontinence, urgency Integumentary system: no lymphadenopathy, sweats, flushing Musculoskeletal: Patient not mention: myalgia, arthralgia Neurological: Patient did not mention blurry or disturbed vision, numbness/weakness, dizziness Skin: No lumps, bumps or rashes. Objective: Vital signs in last 24 hours: As per nursing note Exam: This is a phone visit PATH LABS Labs from January 31 showed creatinine 1.3 B12 904 iron 52 saturation 15 ferritin 16 WBC 0.9 hemoglobin 12.5 MCV 90.7 platelet 131,000 neutrophil 15% lymphocytes 70% @IMAGEIMP@ Assessment: Plan: There are no problems to display for this patient. 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 Bone marrow biopsy showed increased myeloblasts up to 30% with trilineage dyspoiesis with hypercellular marrow of 70 to 80%. Absent iron stores. Cytogenetics showed normal male karyotype 46 XY. I have referred this patient to Dr. Workman for further workup and management. Patient will need to have myeloid panel ordered. I plan to see him back with repeat labs in 4 weeks. ? TOBACCO COUNSELING He is not a tobacco/nicotine user. 02/26/2024 Frank Singh MD This encounter was completed via audio-only two way synchronous communication. Patient's identity confirmed yes Patient gave verbal consent to have these services billed to their insurance and expressed understanding that co-insurance and deductible may apply: yes Time spent by the provider delivering the care documented in this encounter 20 minutes. LEADER documented in this encounter Plan of Treatment Not on file documented as of this encounter Visit Diagnoses Diagnosis Chronic anemia- Primary Anemia, unspecified documented in this encounter Care Teams Vehicle Inspector Relationship Specialty Start Date End Date Timothy Banks MD [address] [place] [id number] PCP - General Family Practice 02/01/24 documented as of this encounter
--- OUTSIDE RECORDS SUMMARY | 2024-04-09 17:28 | XMS_ITS | Encounter Summary ---
Author Organization [facility] Address [address] [place] [address] Care Team Providers Care Plaster Applicator Name Role Phone Timothy Bakns MD Primary Care Provider [phone] Encounter Details Date Type Department Care Team (Late st Contact Info) Description 02/21/2024 Orders Only [facility] Oncology and Hematology - [place] [address] [facility] [address] [place] [address] Frank Snigh MD [address] [facility] [address] [place] [address] Social History Tobacco Use Types Packs/Day Years Used Date Smoking Tobacco: Never Smokeless Tobacco: Never Alcohol Use Standard Drinks/Week Comments Yes 0 (1 standard drink = 0.6 oz pur e alcohol) Very Ocasionally Sex and Gender Information Value Date Recorded Sex Assigned at Male 04/05/2024 3:07 PM SPECIALTY DEVELOPMENT CONSULTANT Gender Identity Male 04/05/2024 3:07 PM SPECIALTY DEVELOPMENT CONSULTANT Sexual Orientation Not on file documented as of this encounter Plan of Treatment Not on file documented as of this encounter Procedures Procedure Name Priority Date/Time Associated Diagnosis Comments CHROMOSOME ANALYSIS, AMNIOTIC FLUID Routine 02/21/2024 1:39 PM SPECIALTY DEVELOPMENT CONSULTANT BONE MARROW ASPIRATION & BIOPSY Routine 02/12/2024 7:45 AM SPECIALTY DEVELOPMENT CONSULTANT documented in this encounter Results * CHROMOSOME ANALYSIS, AMNIOTIC FLUID (02/21/2024 1:39 PM SPECIALTY DEVELOPMENT CONSULTANT) Amniotic fluid AMNIOTIC FLUID / Unknown Frank Singh MD BODY FLUIDS AND STOO LS * BONE MARROW ASPIRATION AND BIOPSY (02/12/2024 7:45 AM SPECIALTY DEVELOPMENT CONSULTANT) Bone marrow Frank Singh MD PATH/CYTO ORDERABLES COM documented in this encounter Visit Diagnoses Not on filedocumented in this encounter Care Teams Plaster Applicator Relationship Specialty Start Date End Date Timothy Banks MD [address] [place] [address] PCP - General Family Practice 02/01/24 documented as of this encounter
--- OUTSIDE RECORDS SUMMARY | 2024-04-09 17:28 | XMS_ITS | Encounter Summary ---
Author Organization [facility] Address [address] [place] [address] Care Team Providers Care Bicycle Mechanic Name Role Phone Timothy Banks MD Primary Care Provider [phone] Encounter Details Date Type Department Care Team (Late st Contact Info) Description 02/02/2024 Orders Only [facility] Oncology and Hematology - [place] [address] [facility] [address] [place] [address] Frank Singh MD [address] [facility] [address] [place] [address] Social History Tobacco Use Types Packs/Day Years Used Date Smoking Tobacco: Never Smokeless Tobacco: Never Alcohol Use Standard Drinks/Week Comments Yes 0 (1 standard drink = 0.6 oz pur e alcohol) Very Ocasionally Sex and Gender Information Value Date Recorded Sex Assigned at Male 04/05/2024 3:07 PM SEWAGE DISPOSAL ENGINEER Gender Identity Male 04/05/2024 3:07 PM SEWAGE DISPOSAL ENGINEER Sexual Orientation Not on file documented as of this encounter Plan of Treatment Not on file documented as of this encounter Procedures Procedure Name Priority Date/Time Associated Diagnosis Comments BASIC METABOLIC PANEL Routine 02/01/2024 1:36 PM CDT CBC WITH DIFFERENTIAL Routine 02/01/2024 12:49 PM CDT documented in this encounter Results * BASIC METABOLIC PANEL (02/01/2024 1:36 PM CDT) Blood Frank Singh MD CHEMISTRY ORDERABLES * CBC WITH DIFFERENTIAL (02/01/2024 12:49 PM CDT) Blood Frank Singh MD HEMATOLOGY ORDERABLE S documented in this encounter Visit Diagnoses Not on filedocumented in this encounter Care Teams Bicycle Mechanic Relationship Specialty Start Date End Date Timothy Banks MD [address] [place] [address] PCP - General Family Practice 02/01/24 documented as of this encounter
--- OUTSIDE RECORDS SUMMARY | 2024-04-09 17:28 | XMS_ITS | Encounter Summary ---
Author Organization [facility] [employer] [facility] Address [address] [place] [address] Care Team Providers Care Valve And Regulator Repairer Name Role Phone Timothy Banks MD Primary Care Provider [phone] Reason for Visit * Reason Onset Date Comments Biopsy 02/02/2024 Encounter Details Date Type Department Care Team (Late st Contact Info) Description 02/02/2024 Telephone [facility] and Hematology - [place] [address] [facility] [address] [place] [address] Frank Singh MD [address] [facility] [address] [place] [address] Biopsy Social History Tobacco Use Types Packs/Day Years Used Date Smoking Tobacco: Never Smokeless Tobacco: Never Alcohol Use Standard Drinks/Week Comments Yes 0 (1 standard drink = 0.6 oz pur e alcohol) Very Ocasionally Sex and Gender Information Value Date Recorded Sex Assigned at Male 04/05/2024 3:07 PM MAGAZINE REPAIRER Gender Identity Male 04/05/2024 3:07 PM MAGAZINE REPAIRER Sexual Orientation Not on file documented as of this encounter Miscellaneous Notes * Telephone Encounter - Brittany Retana - 02/02/2024 12:59 PM CDT Patient is aware of appointment. Appointment; 02/12/2024 at 0900 Arrive at 0730 for labs. Patient will need to hold Eliquis 2 days prior, he will continue 24 hours after procedure. He will need a helper driver. Nothing to eat after midnight. Bring a list a home medications. * Telephone Encounter - Brittany Retana - 02/02/2024 12:59 PM CDT ----- Message from Dr. Frank Singh sent at 02/01/2024 5:35 PM CDT ----- Please schedule bone marrow aspiration and biopsy as soon as possible. Follow-up with me after the biopsy. documented in this encounter Plan of Treatment Not on file documented as of this encounter Visit Diagnoses Not on filedocumented in this encounter Care Teams Valve And Regulator Repairer Relationship Specialty Start Date End Date Timothy Banks MD [address] [place] [address] PCP - General Family Practice 02/01/24 documented as of this encounter
--- OUTSIDE RECORDS SUMMARY | 2024-04-09 17:28 | XMS_ITS | Encounter Summary ---
Author Organization [facility] [employer] [facility] Address [address] [place] [address] Care Team Providers Care Chocolate Temperer Name Role Phone Timothy Banks MD Primary Care Provider [phone] Reason for Visit * Reason Onset Date Comments Lab Results 03/28/2024 Critical Labs- W BC .7 Encounter Details Date Type Department Care Team (Late st Contact Info) Description 03/28/[address] [facility] Oncology and Hematology - [place] [address] [place] [address] [facility] [address] [place] [id number] Frank Singh MD [address] [facility] [address] [place] [address] Social History Tobacco Use Types Packs/Day Years Used Date Smoking Tobacco: Never Smokeless Tobacco: Never Alcohol Use Standard Drinks/Week Comments Yes 0 (1 standard drink = 0.6 oz pur e alcohol) Very Ocasionally Sex and Gender Information Value Date Recorded Sex Assigned at Male 04/05/2024 3:07 PM LOADING MACHINE ADJUSTER Gender Identity Male 04/05/2024 3:07 PM LOADING MACHINE ADJUSTER Sexual Orientation Not on file documented as of this encounter Patient Instructions * Attachments The following attachments cannot be sent through Care Everywhere. * Neutropenia (Qatari) documented in this encounter Miscellaneous Notes * Patient Instructions - Jinny Mo - 03/28/2024 9:22 AM LOADING MACHINE ADJUSTER After Review of Labs by Deidra Dacosta, WBC is critical. I informed Dr. Garcia's Nurse, Mas by faxand phone of these results. She has advised Dr. Garcia on what to do next. Patient was informed of Labs and was told to await a phone call from Dr. Garcia's Office. RC ING MACHINE ADJUSTER documented in this encounter Plan of Treatment Not on file documented as of this encounter Visit Diagnoses Not on filedocumented in this encounter Care Teams Chocolate Temperer Relationship Specialty Start Date End Date Timothy Banks MD [address] [place] [address] PCP - General Family Practice 02/01/24 documented as of this encounter
--- OUTSIDE RECORDS SUMMARY | 2024-04-09 17:28 | XMS_ITS | Encounter Summary ---
Author Organization [facility] [employer] [facility] Address [address] [place] [address] Care Team Providers Care Field Training Agent Name Role Phone Timothy Banks MD Primary Care Provider Encounter Details Date Type Department Care Team (Late st Contact Info) Description 02/01/2024 Orders Only [facility] Oncology and Hematology - [place] [address] [place] [address] [address] [place] [address] Frank Singh MD [address] [facility] [address] [place] [address] Chronic anemia (Primary Dx); Leukopenia, unspecified type Social History Tobacco Use Types Packs/Day Years Used Date Smoking Tobacco: Never Smokeless Tobacco: Never Alcohol Use Standard Drinks/Week Comments Yes 0 (1 standard drink = 0.6 oz pur e alcohol) Very Ocasionally Sex and Gender Information Value Date Recorded Sex Assigned at Male 04/05/2024 3:07 PM AUDIO VISUAL EQUIPMENT RENTAL CLERK Gender Identity Male 04/05/2024 3:07 PM AUDIO VISUAL EQUIPMENT RENTAL CLERK Sexual Orientation Not on file documented as of this encounter Plan of Treatment Not on file documented as of this encounter Visit Diagnoses Diagnosis Chronic anemia- Primary Anemia, unspecified Leukopenia, unspecified type documented in this encounter Care Teams Field Training Agent Relationship Specialty Start Date End Date Timothy Banks MD [address] [place] [address] PCP - General Family Practice 02/01/24 documented as of this encounter
--- OUTSIDE RECORDS SUMMARY | 2024-04-09 17:28 | XMS_ITS | Encounter Summary ---
Author Organization [facility] Address [address] [place] [address] Care Team Providers Care Chin Strap Cutter Name Role Phone Timothy Banks MD Primary Care Provider [phone] Encounter Details Date Type Department Care Team (Late st Contact Info) Description 02/06/2024 External Device Data ST[place] ABSTRACTION Provider, Abstract NO ADDRESS ON FILE Social History Tobacco Use Types Packs/Day Years Used Date Smoking Tobacco: Never Smokeless Tobacco: Never Alcohol Use Standard Drinks/Week Comments Yes 0 (1 standard drink = 0.6 oz pur e alcohol) Very Ocasionally Sex and Gender Information Value Date Recorded Sex Assigned at Male 04/05/2024 3:07 PM LODGE OFFICER Gender Identity Male 04/05/2024 3:07 PM LODGE OFFICER Sexual Orientation Not on file documented as of this encounter Plan of Treatment Not on file documented as of this encounter Visit Diagnoses Not on filedocumented in this encounter Care Teams Chin Strap Cutter Relationship Specialty Start Date End Date Timothy Banks MD [address] [place] [address] PCP - General Family Practice 02/01/24 documented as of this encounter
--- OUTSIDE RECORDS SUMMARY | 2024-04-09 17:28 | XMS_ITS | Encounter Summary ---
Author Organization [facility] [email or web address] [facility] Address [address] [place] [address] Care Team Providers Care Instrument Tech Name Role Phone Timothy Banks MD Primary Care Provider [phone] Reason for Visit * Reason Onset Date Comments Lab Results 03/25/2024 Encounter Details Date Type Department Care Team (Late st Contact Info) Description 03/25/2024 Telephone [facility] Oncology and Hematology - [place] [address] [place] [address] [facility] [address] [place] [address] Frank Singh MD [address] [facility] [address] [place] [address] Lab Results Social History Tobacco Use Types Packs/Day Years Used Date Smoking Tobacco: Never Smokeless Tobacco: Never Alcohol Use Standard Drinks/Week Comments Yes 0 (1 standard drink = 0.6 oz pur e alcohol) Very Ocasionally Sex and Gender Information Value Date Recorded Sex Assigned at Male 04/05/2024 3:07 PM DIRECTOR OF UNDERGRADUATE ADMISSIONS Gender Identity Male 04/05/2024 3:07 PM DIRECTOR OF UNDERGRADUATE ADMISSIONS Sexual Orientation Not on file documented as of this encounter Miscellaneous Notes * Telephone Encounter - Brittany Retana Kerry - 03/25/2024 3:37 PM CST Patient came in today to get labs drawn. Dr. Singh reviewed his labs and would like him to start on a growth factor. Dr. Singh talked to the doctor at [facility] and they are wanting him to do treatment there as he has active leukemia and they will be changing treatment regularly. Patient is going to get labs done here 2 times a week and will follow up with them. I tried to call patient and let him know what was going on but had to LVM. I asked that he call the office back. CTOR OF UNDERGRADUATE ADMISSIONS documented in this encounter Plan of Treatment Not on file documented as of this encounter Visit Diagnoses Not on filedocumented in this encounter Care Teams Instrument Tech Relationship Specialty Start Date End Date Timothy Banks MD [address] [place] [phone] PCP - General Family Practice 02/01/24 documented as of this encounter
--- OUTSIDE RECORDS SUMMARY | 2024-04-09 17:28 | XMS_ITS | Encounter Summary ---
Author Organization [facility] [employer] [facility] Address [address] [place] [address] Care Team Providers Care Drafter Geological Name Role Phone Timothy Banks MD Primary Care Provider [phone] Encounter Details Date Type Department Care Team (Late st Contact Info) Description 03/26/2024 Orders Only [facility] Oncology and Hematology - Charles [address] [facility] [address] [place] [address] Frank Singh MD [address] [facility] [address] [place] [address] Social History Tobacco Use Types Packs/Day Years Used Date Smoking Tobacco: Never Smokeless Tobacco: Never Alcohol Use Standard Drinks/Week Comments Yes 0 (1 standard drink = 0.6 oz pur e alcohol) Very Ocasionally Sex and Gender Information Value Date Recorded Sex Assigned at Male 04/05/2024 3:07 PM SHEET METAL FORMER Gender Identity Male 04/05/2024 3:07 PM SHEET METAL FORMER Sexual Orientation Not on file documented as of this encounter Plan of Treatment Not on file documented as of this encounter Procedures Procedure Name Priority Date/Time Associated Diagnosis Comments BASIC METABOLIC PANEL Routine 03/25/2024 1:24 PM SHEET METAL FORMER CBC WITH DIFFERENTIAL Routine 03/25/2024 1:23 PM SHEET METAL FORMER CBC WITH DIFFERENTIAL Routine 03/25/2024 10:28 AM SHEET METAL FORMER documented in this encounter Results * BASIC METABOLIC PANEL (03/25/2024 1:24 PM SHEET METAL FORMER) Blood Frank Singh MD CHEMISTRY ORDERABLES * CBC WITH DIFFERENTIAL (03/25/2024 1:23 PM SHEET METAL FORMER) Blood Frank Singh MD HEMATOLOGY ORDERABLE S * CBC WITH DIFFERENTIAL (03/25/2024 10:28 AM SHEET METAL FORMER) Blood Frank Singh MD HEMATOLOGY ORDERABLE S documented in this encounter Visit Diagnoses Not on filedocumented in this encounter Care Teams Drafter Geological Relationship Specialty Start Date End Date Timothy Banks MD [address] [place] [phone] PCP - General Family Practice 02/01/24 documented as of this encounter
--- OUTSIDE RECORDS SUMMARY | 2024-04-09 17:28 | XMS_ITS | Clinical Summary ---
Author Organization [facility] Address [address] [place] [address] Care Team Providers Care Dental Technologist Name Role Phone Unavailable Primary Care Provider Unavailabl e Immunizations Immunization Administration Dates Next Due Covid-19, Mrna, Lnp-s, Pf, 30 Mcg/0.3 Ml Dose (P fizer) 04/14/2021 Social History Tobacco Use Types Packs/Day Years Used Date Smoking Tobacco: Never Assessed Sex and Gender Information Value Date Recorded Sex Assigned at Not on file Legal Sex Male 3:46 PM WARP SPINNER Gender Identity Not on file Sexual Orientation Not on file Plan of Treatment Health Maintenance Due Date Last Done Comments Hepatitis C Virus (HCV) Screening 1945 Respiratory Syncytial Virus (RSV) Immunization (Adult) (1 - 1-dose 75+ series) 11/04/2019 Influenza Immunization (#1) 12/10/20232 06/2020, 01/04/2020, 01/25/2019, Additional history exists SARS-COV-2 Immunization ( season) 2023 04/14/2021, 06/25/2020, 06/02/2020 DTaP/Tdap/Td Immunization Discontinued 09/17/2018 Pneumococcal Immunization (50+ years) Completed 09/17/2018, 08/27/2015 TdaP Immunization Completed 09/17/2018 Zoster Immunization Completed 03/08/2020, 0 Hepatitis B Immunization Aged Out No longer eligible based on patient's age to complete this topic Meningococcal Immunization (ACWY) Aged Out No longer eligible based on patient's age to complete this topic Rotavirus Immunization Aged Out No lo nger eligible based on patient's age to complete this topic
--- OUTSIDE RECORDS SUMMARY | 2024-04-09 17:28 | XMS_ITS | Encounter Summary ---
Author Organization [facility] Address [address] [place] [address] Care Team Providers Care Conventional Underwriter Name Role Phone Unavailable Primary Care Provider Unavailabl e Encounter Details Date Type Department Care Team (Late st Contact Info) Description 04/14/2021 4:00 PM WOUND CARE COORDINATOR Immunization [place] [facility] PED - [facility] 2 Mobile Immunization [phone] [address] Need for vaccination (Primary Dx) Social History Tobacco Use Types Packs/Day Years Used Date Smoking Tobacco: Never Assessed Sex and Gender Information Value Date Recorded Sex Assigned at Not on file Legal Sex Male 3:46 PM WOUND CARE COORDINATOR Gender Identity Not on file Sexual Orientation Not on file documented as of this encounter Plan of Treatment Not on file documented as of this encounter Visit Diagnoses Diagnosis Need for vaccination- Primary Need for prophylactic vaccination and inoculation against unspecified single disease documented in this encounter
--- OUTSIDE RECORDS SUMMARY | 2024-04-09 17:28 | XMS_ITS | Encounter Summary ---
Author Organization [facility] [employer] [facility] Address [address] [place] [address] Care Team Providers Care Multi Sensor Operator Name Role Phone Timothy Banks MD Primary Care Provider [phone] Encounter Details Date Type Department Care Team (Late st Contact Info) Description 02/16/2024 Orders Only [facility] Oncology and Hematology - Charles [address] [place] [address] Scanning, Provider Social History Tobacco Use Types Packs/Day Years Used Date Smoking Tobacco: Never Smokeless Tobacco: Never Alcohol Use Standard Drinks/Week Comments Yes 0 (1 standard drink = 0.6 oz pur e alcohol) Very Ocasionally Sex and Gender Information Value Date Recorded Sex Assigned at Male 04/05/2024 3:07 PM CONTRACTING SUPPORT SPECIALIST Gender Identity Male 04/05/2024 3:07 PM CONTRACTING SUPPORT SPECIALIST Sexual Orientation Not on file documented as of this encounter Plan of Treatment Not on file documented as of this encounter Procedures Procedure Name Priority Date/Time Associated Diagnosis Comments FLOW CYTOMETRY PANEL Routine 02/12/2024 2:53 PM CONTRACTING SUPPORT SPECIALIST documented in this encounter Results * FLOW CYTOMETRY PANEL (02/12/2024 2:53 PM CONTRACTING SUPPORT SPECIALIST) Provider Scanning PATHOLOGY/CYTOLOGY O RDERABLES documented in this encounter Visit Diagnoses Not on filedocumented in this encounter Care Teams Multi Sensor Operator Relationship Specialty Start Date End Date Timothy Banks MD [address] [place] [address] PCP - General Family Practice 02/01/24 documented as of this encounter
--- OUTSIDE RECORDS SUMMARY | 2024-04-09 17:28 | XMS_ITS | Encounter Summary ---
Author Organization [facility] [employer] [facility] Address [address] [place] [address] Care Team Providers Care Rock Drill Operator Name Role Phone Timothy Banks MD Primary Care Provider [phone] Reason for Visit * Reason Onset Date Comments error 03/22/2024 Encounter Details Date Type Department Care Team (Late st Contact Info) Description 03/22/2024 Telephone [facility] Oncology and Hematology - Charles [address] [facility] [address] [place] [address] Frank Singh MD [address] [facility] [address] [place] [address] error Social History Tobacco Use Types Packs/Day Years Used Date Smoking Tobacco: Never Smokeless Tobacco: Never Alcohol Use Standard Drinks/Week Comments Yes 0 (1 standard drink = 0.6 oz pur e alcohol) Very Ocasionally Sex and Gender Information Value Date Recorded Sex Assigned at Male 04/05/2024 3:07 PM GARBAGE COLLECTOR SUPERVISOR Gender Identity Male 04/05/2024 3:07 PM GARBAGE COLLECTOR SUPERVISOR Sexual Orientation Not on file documented as of this encounter Plan of Treatment Not on file documented as of this encounter Visit Diagnoses Not on filedocumented in this encounter Care Teams Rock Drill Operator Relationship Specialty Start Date End Date Timothy Banks MD [address] [place] [address] PCP - General Family Practice 02/01/24 documented as of this encounter
--- OUTSIDE RECORDS SUMMARY | 2024-04-09 17:28 | XMS_ITS | Encounter Summary ---
Author Organization [facility]3] [employer] [facility] Address [address] [place] [address] Care Team Providers Care Physiotherapy Assistant Name Role Phone Timothy Banks MD Primary Care Provider [phone] Reason for Referral * Eval and Treat (Routine) - Open Specialty Diagnoses / Procedures Referred By Contac t Referred To Contact Hematology and Oncology Diagnoses Chronic anemia 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 achieved remission Procedures ID OFFICE/OUTPATIENT ESTABLISHED MOD MDM 30 MIN ID OFFICE/OUTPATIENT NEW MODERATE MDM 45 MINUTES Frank Singh MD [address] [place] [phone] Referral ID Status Reason Start Date Expiration Date V isits Requested Visits Authorized [id number] Open STL CTS 02/22/2024 02/21/2025 1 1 UNITY OUTREACH SPECIALIST Reason for Visit * Reason Onset Date Comments Referral 02/22/2024 Encounter Details Date Type Department Care Team (Late st Contact Info) Description 02/22/2024 Telephone [facility] Oncology and Hematology - [place] [address] [place] [address] [address] [place] [address] Frank Singh MD [address] [place] [address] Referral Social History Tobacco Use Types Packs/Day Years Used Date Smoking Tobacco: Never Smokeless Tobacco: Never Alcohol Use Standard Drinks/Week Comments Yes 0 (1 standard drink = 0.6 oz pur e alcohol) Very Ocasionally Sex and Gender Information Value Date Recorded Sex Assigned at Male 04/05/2024 3:07 PM COMMUNITY OUTREACH SPECIALIST Gender Identity Male 04/05/2024 3:07 PM COMMUNITY OUTREACH SPECIALIST Sexual Orientation Not on file documented as of this encounter Miscellaneous Notes * Telephone Encounter - Brittany Retana - 02/22/2024 10:13 AM CST Referral orders placed. UNITY OUTREACH SPECIALIST * Telephone Encounter - Isidoro Retanaelle Kerry - 02/22/2024 10:12 AM CST ----- Message from Dr. Frank Singh sent at 02/21/2024 7:19 PM COMMUNITY OUTREACH SPECIALIST ----- Regarding: RE: Pathology Please refer patient to Dr. Workman for possible acute myeloid leukemia. ----- Message ----- From: Brittany Retana Sent: 02/21/2024 7:46 AM COMMUNITY OUTREACH SPECIALIST To: Frank Singh MD Subject: Pathology Can you please look over patients bone marrow pathology. Dr. Morton had me keeping an eye on it for when it came back. UNITY OUTREACH SPECIALIST documented in this encounter Plan of Treatment Scheduled Referrals Name Type Priority Associated Diagnoses Order Schedule AMB REFERRAL TO HEMATOLOGY ONCOLOGY Outpatient Referral Routine Chronic anemia 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 achieved remission Ordered: 02/22/2024 documented as of this encounter Visit Diagnoses Diagnosis Chronic anemia- Primary Anemia, unspecified 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 achieved remission documented in this encounter Care Teams Physiotherapy Assistant Relationship Specialty Start Date End Date Timothy Banks MD [address] [place] [address] PCP - General Family Practice 02/01/24 documented as of this encounter
--- OUTSIDE RECORDS SUMMARY | 2024-04-09 17:28 | XMS_ITS | Clinical Summary ---
Author Organization [facility] [address] Address [address] [place] [address] Care Team Providers Care Sausage Tier Name Role Phone Timothy Banks MD Primary Care Provider Allergies Active Allergy Reactions Criticality Noted Date Comments Iodinated Contrast Media Hives Medium 09/07/2022 Medications budesonide-formot benjamin (SYMBICORT) 160-4.5 mcg/actuation inhaler inhale 2 puff by inhalation route every day in the morning and evening 0 Inhaler 0 6 Active albuterol HFA (PROAIR HFA) 90 mcg/actuation inhaler inhale 2 puff by inhalation route every 4 - 6 hours as needed 0 Inhaler 0 6 Active cholecalciferol (VITAMIN D3) 1,000 unit capsule take 1 by Oral route every day 0 0 7 Active folic acid 0.8 mg capsule 0.8 mg. 0 0 7 Active bimatoprost (LUMIGAN) 0.01 % ophthalmic drops Administer 1 drop into both eyes nightly 9 Active hydrocortisone 2.5 % ointment 2 Active apixaban (ELIQUIS) 5 mg tabletIndications :long term care administrator current use of 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 Take 1 tablet (5 mg total) by mouth 2 (two) times a day 180 tablet 4 Active lansoprazole (PREVACID) 30 mg capsule Take 1 capsule (30 mg total) by mouth daily 4 Active dilTIAZem CD 120 mg 24 hr capsule Take 1 capsule (120 mg total) by mouth daily 90 capsule 3 4 Active levoFLOXacin (LEVAQUIN) 500 mg tablet Take 1 tablet (500 mg total) by mouth daily 4 Active posaconazole (NOXAFIL) 100 mg tablet,delayed release (DR/EC) Take 3 tablets (300 mg total) by mouth daily 4 06/12/19 25 Active valACYclovir (VALTREX) 500 mg tablet Take 1 tablet (500 mg total) by mouth 2 (two) times a day 4 Active ferrous sulfate 325 mg (65 mg of elemental iron) tablet Take 1 tablet (325 mg total) by mouth every 48 hours 4 Active allopurinoL (ZYLOPRIM) 300 mg tablet Take 1 tablet (300 mg total) by mouth daily 4 Active venetoclax (VENCLEXTA) 100 mg tablet Take 1 tablet (100 mg total) by mouth daily 4 03/13/20 25 Active furosemide (LASIX) 20 mg tabletIndications :Bilateral lower extremity edema Take 1 tablet (20 mg total) by mouth daily as needed (swelling) 30 tablet 1 4 Active Active Problems Problem Noted Date Diagnosed Date Atypical chest pain 07/29/2022 History of COVID-19 07/20/2020 QAMAR (obstructive sleep apnea) 08/28/2018 Bilateral lower extremity edema 08/28/2018 Snoring 02/21/2018 Hypersomnolence 02/21/2018 Tiredness 02/21/2018 Other fatigue 02/21/2018 Cardiac arrhythmia 10/28/2016 Lightheadedness 06/24/2016 Overview (09/02/2016): Lightheadedness Ventricular premature beats 03/31/2016 Overview (07/21/2016): Premature ventricular contraction long term care administrator current use of 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 1 06/01/2015 Overview (07/21/2016): Chronic anticoagulation RBBB 03/31/2016 Overview (07/21/2016): Right bundle branch block 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) 03/31/2016 Overview (07/21/2016): Venous 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 Hypertensive left ventricular hypertrophy 2015 Overview (07/21/2016): Hypertensive left ventricular hypertrophy, without heart failure LVH (left ventricular hypertrophy) 03/31/2016 Overview (07/21/2016): Left ventricular hypertrophy Chronic renal insufficiency, stage III (moderate ) 08/19/2013 Encounters Date Type Department Care Team Description 03/27/2024 3:15 PM OUTSOLE FLEXER Office Visit [facility] Cardiology [address] [facility] [address] [place] [address] Jayro Kaminski MD SVT (supraventricular tachycardia) (HCC) (Primary Dx); QAMAR (obstructive sleep apnea); long term care administrator current use of 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; RBBB; Hypertensive left ventricular hypertrophy, without heart failure; LVH (left ventricular hypertrophy); Bilateral lower extremity edema 03/22/2024 Telephone [facility] Hematology [facility] [facility] Floor [address] [place] [address] Adilene Gonsalves, KEVIN 02/02/2024 Telephone [facility] Cardiology [address] [place] [address] for Advanced Medicine 8th [place] [address] [place] [address] Sally Wisdom 01/31/2024 Telephone [facility] Hematology [address] [facility] [address] [place] [address] Adilene Gonsalves, KEVIN 01/25/2024 Telephone [facility] Cardiology [address] [place] [address] for Advanced Medicine 8th [place] [address] [place] [address] Alberto Gallegos MD 01/25/2024 Telephone [facility] Cardiology [address] [place] [address] for Advanced Medicine 8th [place] [address] [place] [address] Marylin Dowell 01/23/2024 1:30 PM CDT Office Visit [facility] Cardiology [address] [facility] [address] [place] [phone] Ritu Adame NP PSVT (paroxysmal supraventricular tachycardia) (HCC) (Primary Dx); Hospital discharge follow-up 01/23/2024 Telephone [facility] Cardiology [address] [place] [phone] Ritu Adame NP 01/15/2024 Orders Only [facility] [address] [facility] [address] [place] [phone] Virginia Lester NP 01/11/2024 Telephone [facility] [address] [facility] [address] [place] [phone] Jayro Kaminski MD 01/10/2024 Orders Only [address] [place] [address] Bebeto Reynoso MD 01/08/2024 Telephone [facility] [address] [place] [address] Bogdan Nguyễn MD from Last 3 Months Immunizations Name Administration Dates Next Due Influenza, Quad, Adjuvantate d, Intramuscular 01/04/2020 Influenza, Quadrivalent, Rec ombinant, Egg Free, Preservative Free, Intramuscular 01/25/2019 Influenza, Trivalent, High D ose, Split, Preservative Free, Intramuscular 12/14/2017 Influenza, Trivalent, IM (MDV) 12/09/2020,2019,12/09/2018 Pneumococcal Conjugate PCV 13 08/27/2015 Pneumococcal Polysaccharide PPV23 09/17/2018 Tdap 09/17/2018 ZOSTER Recombinant 01/04/2020 Surgical History Surgery Date Site/Laterality Comments ANGIOPLASTY 04/10/2004 - 04/09/2005 APPENDECTOMY 04/10/1995 - 04/09/1996 CATARACT EXTRACTION 04/10/2017 - 04/09/2018 CHOLECYSTECTOMY 04/10/1995 - 04/09/1996 HERNIA REPAIR [birth year] Medical History Medical History Date Comments Hx Other Medical recurrent DVT, gerd, s/p hiatal hernia surfery, ch; Comments: [facility] 03/31/2016 - Hx Other Medical CKD; Comments: [facility] 03/31/2016 - GERD (gastroesophageal reflux disease) 1974 Cataract 2018 Chronic bronchitis (HCC) ? Heart disease 2016 Chronic kidney disease 2010 Sleep apnea 2018 Family History Medical History Relation Name Comments Alzheimer's disease Brother Emmett Bryon Kern Alzheimer's disease Father Jeffrey Kern Alzheimer's disease Mother Daisy Kern Alzheimer's disease Sister Leslie Dewey Relation Name Status Comments Brother Emmett Kern Father Jeffrey Kern Mother Daisy Kern Sister Leslie Dewey Social History Tobacco Use Types Packs/Day Years Used Date Smoking Tobacco: Never Smokeless Tobacco: Never Alcohol Use Standard Drinks/Week Comments Yes 0 (1 standard drink = 0.6 oz pur e alcohol) Sex and Gender Information Value Date Recorded Sex Assigned at Not on file Legal Sex Male 4:19 AM OUTSOLE FLEXER Gender Identity Male 01/12/2020 7:43 PM CDT Sexual Orientation Straight 01/12/2020 7: 43 PM CDT Obstetrics History Last Filed Vital Signs Vital Sign Reading Time Taken Comments Blood Pressure 128/62 03/27/2024 3:01 PM OUTSOLE FLEXER Pulse 80 03/27/2024 3:01 PM OUTSOLE FLEXER Temperature 36.3 ??C (97.4 ??F) 08/24/2023 9:29 AM CD T Respiratory Rate 18 08/24/2023 9:29 AM CDT Oxygen Saturation 96% 03/27/2024 3:01 PM OUTSOLE FLEXER Inhaled Oxygen Concentration - - Weight 102.5 kg (226 lb) 03/27/2024 3:01 PM OUTSOLE FLEXER Height 185.4 cm (6' 1 ) 03/27/2024 3:01 PM OUTSOLE FLEXER Body Mass Index 29.82 03/27/2024 3:01 PM OUTSOLE FLEXER Plan of Treatment Health Maintenance Due Date Last Done Comments Depression Screening 1945 Fall Risk Assessment 1945 Hepatitis C Screening 1945 Hepatitis B Screening 1962 Well Visit 65+ 2009 Zoster Vaccine (2 of 2) 02/29/2020 01/04/2020 Covid-19 Vaccine (2 - Pfizer risk series) 05/05/2021 04/14/2021 Influenza Vaccine (#1) 2023 , 01/09/2020, 01/04/2020, Additional history exists DTaP/Tdap/Td Vaccine (2 - Td or Tdap) 09/17/2028 09/17/2018 Pneumococcal vaccine 65+ Completed 09/17/2018, 08/08 Procedures Procedure Name Priority Date/Time Associated Diagnosis Comments CARDIOLOGY DOCUMENT SCAN Routine 01/09/2024 3:14 PM CDT from Last 3 Months Results * Cardiology Document Scan (01/09/2024 3:14 PM CDT) Anatomical Region Laterality Modality Other Virginia Lester NP CV CARDIAC SERVICES PROCEDUR ES Final Result from Last 3 Months Insurance [id number] [id number] [facility] MEDICARE [address] [id number] [facility] MEDICARE [address] [phone] [employer] MEDIC[employer] Care Teams Sausage Tier Relationship Specialty Start Date End Date Timothy Banks MD PCP - General 07/08/16
--- OUTSIDE RECORDS SUMMARY | 2024-04-09 17:28 | XMS_ITS | Encounter Summary ---
Author Organization [facility] Healthcare Address [address] [place] [address] Care Team Providers Care Criminal Investigator Name Role Phone Timothy Banks MD Primary Care Provider [phone] Reason for Visit * Reason Comments SVT RBBB One mo f/u Encounter Details Date Type Department Care Team (Latest Contact Info) Description 03/27/2024 3:15 PM REFINERY TECHNICIAN Office Visit [facility] Medical Group Cardiology [address] [facility] [address] [place] [address] Jayro Kaminski MD [address] [id number] SVT (supraventricular tachycardia) (HCC) (Primary Dx); QAMAR (obstructive sleep apnea); 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; RBBB; Hypertensive left ventricular hypertrophy, without heart failure; LVH (left ventricular hypertrophy); Bilateral lower extremity edema Social History Tobacco Use Types Packs/Day Years Used Date Smoking Tobacco: Never Smokeless Tobacco: Never Alcohol Use Standard Drinks/Week Comments Yes 0 (1 standard drink = 0.6 oz pur e alcohol) Sex and Gender Information Value Date Recorded Sex Assigned at Not on file Legal Sex Male 4:19 AM REFINERY TECHNICIAN Gender Identity Male 01/12/2020 7:43 PM CDT Sexual Orientation Straight 01/12/2020 7: 43 PM CDT documented as of this encounter Last Filed Vital Signs Vital Sign Reading Time Taken Comments Blood Pressure 128/62 03/27/2024 3:01 PM REFINERY TECHNICIAN Pulse 80 03/27/2024 3:01 PM REFINERY TECHNICIAN Temperature - - Respiratory Rate - - Oxygen Saturation 96% 03/27/2024 3:01 PM REFINERY TECHNICIAN Inhaled Oxygen Concentration - - Weight 102.5 kg (226 lb) 03/27/2024 3:01 PM REFINERY TECHNICIAN Height 185.4 cm (6' 1 ) 03/27/2024 3:01 PM REFINERY TECHNICIAN Body Mass Index 29.82 03/27/2024 3:01 PM REFINERY TECHNICIAN documented in this encounter Ordered Prescriptions Prescription Sig Dispense Quantity Refills Last Filled Start Date End Date furosemide (LASIX) 20 mg tabletIndications:B ilateral lower extremity edema Take 1 tablet (20 mg total) by mouth daily as needed (swelling) 30 tablet 1 03/27/2024 documented in this encounter Progress Notes * Jayro Kaminski MD - 03/27/2024 3:15 PM CST Images from the original note were not included. [facility] DATE OF VISIT: 03/27/2024 CHIEF COMPLAINT Chief Complaint Patient presents with SVT RBBB One mo f/u HPI Russ Kern is a 78 y.o. male with arrhythmia and PVCs. He was seen because of an upper respiratory tract infection and bronchitis by his primary care physician. Nurse practitioner noticed an irregular heartbeat an EKG showed right bundle branch block with PVCs. This led him to have an echocardiogram at [facility] which was normal except for moderate LVH. He did have mild left atrial enlargement. Mild mitral, aortic and tricuspid regurgitation. Diastolic dysfunction was present. He does have a history of pulmonary embolism, DVT and Braxton filter. 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 He is on chronic anticoagulation. Previous Holtermonitoring did reveal moderate frequency ventricular ectopy and frequent supraventricular ectopy including brief atrial runs. He was hospitalized for an ileus. He also developed a DVT in his right leg. He was subtherapeutic upon admission. He has some shortness of breath and is back on chronic anticoagulation. He denies anysyncope or presyncope. No chest pain or paroxysmal nocturnal dyspnea. While in hospital he was having episodes of SVT also but was not discharged on any calcium channel geronimo. He has not had any significant palpitations. Follow-up note 09/05/2017: He returns today feeling fine and denies any chest pain, shortness breath, syncope, presyncope, paroxysmal nocturnal dyspnea, orthopnea, edema or palpitations. Follow-up note 02/21/2018: He denies any chest pain, shortness breath, syncope, presyncope, paroxysmal nocturnal dyspnea, orthopnea or palpitations. He does have some swelling but he was recently on a trip were a little more salty food. He is hypersomnolent tired fatigued all the time and does snore Follow-up note 08/28/2018: He has developed some swelling which is a little worse than usual. No chest pain aside from coughing. He is dealing with a upper respiratory tract infection. He denies any syncope, presyncope, paroxysmal nocturnal dyspnea, orthopnea, palpitations. No Bleeding problems Follow-up note 11/20/2018: He does have some intermittent swelling which he takes as needed furosemide. Otherwise he denies any chest pain, syncope, presyncope, paroxysmal nocturnal dyspnea, orthopnea, palpitations. No shortness of breath Telephone visit 07/11/2019: He does have some dyspnea on exertion with climbing up and down stairs but otherwise is feeling okay. He is using his CPAP routinely. He denies any chest pain, syncope, presyncope, paroxysmal nocturnal dyspnea orthopnea, edema or palpitations Follow-up note 01/21/2022: He denies any chest pain, unusual shortness breath, syncope, presyncope,paroxysmal nocturnal dyspnea, orthopnea, unusual edema or palpitations. No bleeding issues. He is also lost significant weight and is congratulated 07/29/2022 follow-up note: He does have some atypical right-sided chest pain that does not radiate nor associated with other symptoms. It will last for 5 minutes or longer it occurs randomly. Spontaneously resolved. No shortness breath, syncope, presyncope, paroxysmal nocturnal dyspnea orthopnea, pa lpitations. Does have a little bit of swelling which is improved. He has also lost significant weight since last visit from dietary and lifestyle modifications. Follow-up note 02/02/2023: He did have a syncopal episodes since last visit. He had been working out and sometimes has some dizziness. He likely did not hit his head. His hydrochlorothiazide was stopped and he has been feeling better. Blood pressure still reasonably controlled. Denies any chest pain, syncope, paroxysmal nocturnal dyspnea orthopnea, significant edema or palpitations Follow-up note 08/11/2023: He has a little bit of swelling in his legs which are not new or different. Otherwise he feels well and denies any chest pain, shortness breath, syncope, presyncope, paroxysmal nocturnal dyspnea, orthopnea, palpitations Hospital follow-up visit with VALUATION MANAGER 01/23/2024: He was hospitalized with diverticulitis. He had an episode of SVT with a rate in the 200s, reverted back to sinus rhythm spontaneously. Dr. Reynoso saw him in consultation. He was kept on metoprolol and told about the option for EP consult. Echocardiogram showed normal LV systolic function with EF 60-65%, grade 2 diastolic dysfunction, RVSP 45 mmHg. Was placed on diltiazem. He returns today for hospital follow-up. He does feel extra beats at times but no sustained episodes since discharge. 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 He is undergoing treatment at [facility]. From a cardiac perspective he has a few palpitations but otherwise no chest pain, syncope, presyncope, paroxysmal nocturnal dyspnea, orthopnea. Does have some swelling MEDICAL HISTORY Past Medical History: Diagnosis Date Cataract 2018 Chronic bronchitis (HCC) ? Chronic kidney disease 2009 GERD (gastroesophageal reflux disease) 1974 Heart disease 2016 HX OTHER MEDICAL recurrent DVT, gerd, s/p hiatal hernia [facility]; Comments: [facility] 03/31/2016 - HX OTHER MEDICAL CKD; Comments: [facility] 03/31/2016 - Sleep apnea 2018 Social History Tobacco Use Smoking status: Never Smoker Smokeless tobacco: Never Used Substance Use Topics Alcohol use: Yes Drug use: No Family History Problem Relation Age of Onset Alzheimer's disease Mother Alzheimer's disease Father Alzheimer's disease Sister Alzheimer's disease Brother MEDICATIONS Medication List Accurate as of March 27, 2024 3:04 PM. If you have any questions, ask your nurse or doctor. CONTINUE taking these medications allopurinoL 300 mg tablet Commonly known as: ZYLOPRIM apixaban 5 mg tablet Commonly known as: ELIQUIS Take 1 tablet (5 mg total) by mouth 2 (two) times a day bimatoprost 0.01 % ophthalmic drops Commonly known as: FIDELIGAN dilTIAZem CD/XR/XT 120 mg 24 hr capsule Commonly known as: CARDIZEM CD,DILACOR XR Take 1 capsule (120 mg total) by mouth daily ferrous sulfate 325 mg (65 mg of elemental iron) tablet folic acid 0.8 mg capsule 0.8 mg. hydrocortisone 2.5 % ointment lansoprazole 30 mg capsule Commonly known as: PREVACID levoFLOXacin 500 mg tablet Commonly known as: LEVAQUIN posaconazole 100 mg tablet,delayed release (DR/EC) Commonly known as: NOXAFIL ProAir HFA 90 mcg/actuation inhaler Generic drug: albuterol HFA inhale 2 puff by inhalation route every 4 - 6 hours as needed Symbicort 160-4.5 mcg/actuation inhaler Generic drug: budesonide-formoteroL inhale 2 puff by inhalation route every day in the morning and evening valACYclovir 500 mg tablet Commonly known as: VALTREX venetoclax 100 mg tablet Commonly known as: VENCLEXTA Vitamin D3 25 mcg (1,000 unit) capsule Generic drug: cholecalciferol take 1 by Oral route every day ALLERGIES Allergies Allergen Reactions Iv Contrast Dye [Iodinated Contrast Media] Hives REVIEW OF SYSTEMS Review of Systems Constitutional: Negative for weight gain and weight loss. HENT: Negative for hearing loss. Eyes: Negative for blurred vision and visual disturbance. Cardiovascular: Positive for leg swelling. Negative for chest pain, claudication, dyspnea on exertion, irregular heartbeat, near-syncope, orthopnea, palpitations, paroxysmal nocturnal dyspnea and syncope. Respiratory: Negative for cough, hemoptysis, shortness of breath, sleep disturbances due to breathing, snoring and wheezing. Endocrine: Negative for cold intolerance, heat intolerance and polyuria. Hematologic/Lymphatic: Does not bruise/bleed easily. Skin: Negative for color change, itching and rash. Musculoskeletal: Negative for falls, joint pain, joint swelling, muscle cramps, muscle weakness andmyalgias. Gastrointestinal: Negative for abdominal pain, heartburn, nausea and vomiting. Genitourinary: Negative for dysuria. Neurological: Negative for excessive daytime sleepiness, dizziness, focal weakness, headaches, light-headedness, loss of balance and numbness. Psychiatric/Behavioral: Negative for altered mental status, depression and substance abuse. The patient is not nervous/anxious. Allergic/Immunologic: Negative for environmental allergies. PHYSICAL EXAM Blood pressure 128/62, pulse 80, height 185.4 cm (6' 1 ), weight 102.5 kg (226 lb), SpO2 96%. Body mass index is 29.82 kg/m??. Physical Exam Vitals reviewed. HENT: Head: Normocephalic and atraumatic. Nose: Nose normal. Eyes: General: No scleral icterus. Conjunctiva/sclera: Conjunctivae normal. Cardiovascular: Rate and Rhythm: Normal rate and regular rhythm. Pulses: Intact distal pulses. Heart sounds: Normal heart sounds. No murmur heard. No friction rub. No gallop. Comments: Pulmonary: Effort: Pulmonary effort is normal. No respiratory distress. Breath sounds: Normal breath sounds. No wheezing or rales. Chest: Chest wall: No tenderness. Abdominal: General: Bowel sounds are normal. There is no distension. Palpations: Abdomen is soft. Tenderness: There is no abdominal tenderness. Musculoskeletal: General: Normal range of motion. Cervical back: Neck supple. Comments: Varicose veins Mild bilateral lower extremity edema Skin: General: Skin is warm and dry. Neurological: Mental Status: He is alert and oriented to person, place, and time. Psychiatric: Mood and Affect: Mood normal. LABS AND OTHER DIAGNOSTIC TESTS Lab Results Component Value Date WBC 2.1 (L) 08/24/2023 HGB 13.3 (L) 08/24/2023 HCT 40.9 08/24/2023 MCV 88.0 08/24/2023 Chemistry Component Value Date/Time CO2 27 08/24/2023 0900 CREATININE 1.31 (H) 08/24/2023 0900 Component Value Date/Time CALCIUM 9.5 08/24/2023 0900 BILITOT Negative 01/25/2014 0516 No results found for: CHOL No results found for: HDL No results found for: LDL ] No results found for: LDLCALC No results found for: TRIG No results found for: CHOLHDL EKG Echo 01/30/2020 Normal left ventricular size. Definity contrast agent used to visually enhance endocardial wall motion and contractility. Lot Number: [id number]. Hyperdynamic left ventricular function. No focal wall motion abnormalities. Normal left ventricular diastolic function. Ejection fraction is measured at 77 %. There is moderate enlargement of left atrium. Normal appearance of the mitral valve. Mild mitral valve regurgitation. Normal appearance of the aortic valve. Trace aortic valve regurgitation. MPI 09/07/2022 1 mm or more downsloping inf/lat ST depression. Findings are suggestive of ischemia. Specificity of the observed ST changes is reduced in light of the abnormal resting ECG. Global left ventricular function is normal. Left ventricular ejection fraction is 61 %. Myocardial perfusion imaging is abnormal for mild, mid to apical inferior, apical septal ischemia. Holter monitor June 2017: Normal sinus rhythm with average heart rate 84 beats per minute. Low-frequency ventricular ectopy. Frequent supraventricular ectopy including short atrial runs, 37 atrial pairs, atrial bigeminy and atrial trigeminy and 5470 single PACs. Carotid artery ultrasound 06/28/2016 shows less than 50% bilateral carotid disease. Cardiac catheterization September 2022: No significant coronary disease. EF 75% ASSESSMENT Diagnoses and all orders for this visit: 1. Lightheadedness (Primary) Feeling better. 2. 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 Hypertensive Left ventricular hypertrophy without heart failure Moderate but no evidence of failure 4. skilled nursing current use of 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 No bleeding problems 5. Cardiac arrhythmia, unspecified cardiac arrhythmia type Low-frequency frequency ventricular ectopy. High frequency supraventricular ectopy and brief atrialruns. Asymptomatic however. 6. RBBB No evidence of higher degree block 7. SVT: No sustained symptoms 8. Obstructive sleep apnea: on CPAP 9. Bilateral lower extremity edema Mild and pitting PLAN/RECOMMENDATIONS Furosemide 20 mg daily p.r.n. edema He does have an appointment to see electrophysiology in April for his SVT but given his AML, conservative treatment is likely most appropriate. Continue diltiazem for PSVT He is doing well and is stable at this point. I recommend he continue his current cardiac regimen without change including Eliquis because of his venous 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 And chronic anticoagulation. 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 venetoclax (VENCLEXTA) 100 mg tablet Take 1 tablet (100 mg total) by mouth daily 03/13/2024 03/13/2025 allopurinoL (ZYLOPRIM) 300 mg tablet Take 1 tablet (300 mg total) by mouth daily 03/23/2024 ferrous sulfate 325 mg (65 mg of elemental iron) tablet Take 1 tablet (325 mg total) by mouth every 48 hours 03/23/2024 valACYclovir (VALTREX) 500 mg tablet Take 1 tablet (500 mg total) by mouth 2 (two) times a day 03/23/2024 posaconazole (NOXAFIL) 100 mg tablet,delayed release (DR/EC) Take 3 tablets (300 mg total) by mouth daily 03/13/2024 06/11/2024 levoFLOXacin (LEVAQUIN) 500 mg tablet Take 1 tablet (500 mg total) by mouth daily 03/23/2024 added in this encounter Care Teams Criminal Investigator Relationship Specialty Start Date End Date Timothy Banks MD PCP - General 07/08/16 documented as of this encounter
--- OUTSIDE RECORDS SUMMARY | 2024-04-09 17:28 | XMS_ITS | Referral Summary ---
Author Organization [facility] [address] [facility] [address] Address [address] [place] [address] Care Team Providers Care Chicken Buyer Name Role Phone Timothy Banks MD Primary Care Provider Encounters Date Type Department Care Team Description 03/27/2024 3:15 PM INFORMATION CLERK [employer] Office Visit [facility] Medical Group Cardiology [address] [facility] [address] [place] [address] Jayro Kaminski MD SVT (supraventricular tachycardia) (HCC) (Primary Dx); QAMAR (obstructive sleep apnea); half-way current use of 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; RBBB; Hypertensive left ventricular hypertrophy, without heart failure; LVH (left ventricular hypertrophy); Bilateral lower extremity edema 03/22/2024 Telephone [facility] Hematology [address] [facility] [address] [place] [phone] Adilene Gonsalves, KEVIN 02/02/2024 Telephone [facility] Cardiology [facility] [address] [place] [address] [place] [phone] Sally Wisdom 01/31/2024 Telephone [facility] Hematology [address] [facility] [address] [place] [phone] Adilene Gonsalves, KEVIN 01/25/2024 Telephone [facility] Cardiology [facility] [address]th [place] [address] [place] [phone] Alberto Gallegos MD 01/25/2024 Telephone [facility] Cardiology [facility] [address]th [place] [address] [place] [address] Marylin Dowell 01/23/2024 Telephone [facility] Cardiology [address] [place] [address] [address] [place] [phone] Ritu Adame NP 01/23/2024 1:30 PM CDT Office Visit [facility] Cardiology [address] [place] [address] [address] [place] [address] Ritu Adame NP PSVT (paroxysmal supraventricular tachycardia) (HCC) (Primary Dx); Hospital discharge follow-up 01/15/2024 Orders Only [facility] Cardiology [address] [place] [address] [place] [phone] Virignia Lester NP 01/11/2024 Telephone [facility] Cardiology [address] [place] [address] [address] [place] [phone] Jayro Kaminski MD 01/10/2024 Orders Only [facility] Cardiology [address] [place] [address] [address] [place] [phone] Bebeto Reynoso MD 01/08/2024 Telephone [facility] [address] [place] [address] Bogdan Nguyễn MD from Last 3 Months Allergies Active Allergy [...] 2 Active apixaban (ELIQUIS) 5 mg tabletIndications :half-way current use of 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 Take 1 [...] beats 03/31/2016 Overview (07/21/2016): Premature ventricular contraction half-way current use of 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 1 06/01/2015 Overview (07/21/2016): Chronic anticoagulation RBBB 03/31/2016 Overview (07/21/2016): Right bundle branch block 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) 03/31/2016 Overview (07/21/2016): Venous 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 Hypertensive left ventricular hypertrophy 2015 Overview (07/21/2016): Hypertensive left ventricular hypertrophy, without heart failure LVH (left ventricular hypertrophy) 03/31/2016 Overview (07/21/2016): Left ventricular hypertrophy Chronic renal insufficiency, stage III (moderate ) 08/19/2013 Immunizations Name Administration Dates Next Due Influenza, Quad, Adjuvantate d, Intramuscular 01/04/2020 Influenza, Quadrivalent, Rec ombinant, Egg Free, Preservative Free, Intramuscular 01/25/2019 Influenza, Trivalent, High D ose, Split, Preservative Free, Intramuscular 12/14/2017 Influenza, Trivalent, IM (MDV) 12/09/2020,2019,12/09/2018 Pneumococcal Conjugate PCV 13 08/27/2015 Pneumococcal Polysaccharide PPV23 09/17/2018 Tdap 09/17/2018 ZOSTER Recombinant 01/04/2020 Social History Tobacco Use Types Packs/Day Years Used Date Smoking Tobacco: Never Smokeless Tobacco: Never Alcohol Use Standard Drinks/Week Comments Yes 0 (1 standard drink = 0.6 oz pur e alcohol) Sex and Gender Information Value Date Recorded Sex Assigned at Not on file Legal Sex Male 4:19 AM INFORMATION CLERK [employer] Gender Identity Male 01/12/2020 7:43 PM CDT Sexual Orientation Straight 01/12/2020 7: 43 PM CDT Last Filed Vital Signs Vital Sign Reading Time Taken Comments Blood Pressure 128/62 03/27/2024 3:01 PM INFORMATION CLERK [employer] Pulse 80 03/27/2024 3:01 PM INFORMATION CLERK [employer] Temperature 36.3 ??C (97.4 ??F) 08/24/2023 9:29 AM CD T Respiratory Rate 18 08/24/2023 9:29 AM CDT Oxygen Saturation 96% 03/27/2024 3:01 PM INFORMATION CLERK [employer] Inhaled Oxygen Concentration - - Weight 102.5 kg (226 lb) 03/27/2024 3:01 PM INFORMATION CLERK [employer] Height 185.4 cm (6' 1 ) 03/27/2024 3:01 PM INFORMATION CLERK [employer] Body Mass Index 29.82 03/27/2024 3:01 PM INFORMATION CLERK [employer] Plan of Treatment Not on file Procedures Procedure Name Priority Date/Time Associated Diagnosis Comments CARDIOLOGY DOCUMENT SCAN Routine 01/09/2024 3:14 PM CDT from Last 3 Months Results * Cardiology Document Scan (01/09/2024 3:14 PM CDT) Anatomical Region Laterality Modality Other Virginia Lester NP CV CARDIAC SERVICES PROCEDUR ES Final Result from Last 3 Months Insurance [facility] MEDICARE [id number] [place] [id number] AET MEDICARE AETNA MEDICARE Care Teams Chicken Buyer Relationship Specialty Start Date End Date Timothy Banks MD PCP - General 07/08/16
--- OUTSIDE RECORDS SUMMARY | 2024-04-09 17:28 | XMS_ITS | Encounter Summary ---
Author Organization [facility] Address [address] [place] [address] Care Team Providers Care Hairspring Setter Name Role Phone Timothy Banks MD Primary Care Provider [phone] Reason for Visit * Reason Onset Date Comments Chemotherapy 03/22/2024 Encounter Details Date Type Department Care Team (Late st Contact Info) Description 03/22/2024 Telephone [facility] Oncology and Hematology - [place] [address] [address] [place] [address] Frank Singh MD [address] [place] [address] Chemotherapy Social History Tobacco Use Types Packs/Day Years Used Date Smoking Tobacco: Never Smokeless Tobacco: Never Alcohol Use Standard Drinks/Week Comments Yes 0 (1 standard drink = 0.6 oz pur e alcohol) Very Ocasionally Sex and Gender Information Value Date Recorded Sex Assigned at Male 04/05/2024 3:07 PM SALES ARCHITECT Gender Identity Male 04/05/2024 3:07 PM SALES ARCHITECT Sexual Orientation Not on file documented as of this encounter Miscellaneous Notes * Telephone Encounter - Brittany Retana Kerry - 03/22/2024 2:49 PM CST BMT at [facility] spoke with Dr. Singh and called our office. Patient has started chemotherapy in [facility]. He is transferring back here as it is closer and he will need labs drawn 2 times a week. Patient is going to come in on Monday and of this week and get labs drawn. They will be discharging patient from the hospital tomorrow. S ARCHITECT * Telephone Encounter - Brittany Retana - 03/22/2024 2:49 PM CST ----- Message from Dr. Frank Singh sent at 03/22/2024 2:46 PM SALES ARCHITECT ----- Please register for chemo S ARCHITECT documented in this encounter Plan of Treatment Scheduled Orders Name Type Priority Associated Diagnoses Orde r Schedule BASIC METABOLIC PANEL Lab Routine 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 achieved remission 2 Times a Week for 99 Occurrences starting 03/22/2024 until 03/22/2025 CBC WITH DIFFERENTIAL Lab Routine 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 achieved remission 2 Times a Week for 99 Occurrences starting 03/22/2024 until 03/22/2025 documented as of this encounter Visit Diagnoses Diagnosis 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 achieved remission- Primary documented in this encounter Care Teams Hairspring Setter Relationship Specialty Start Date End Date Timothy Banks MD [address] [place] [address] PCP - General Family Practice 02/01/24 documented as of this encounter
--- OUTSIDE RECORDS SUMMARY | 2024-04-09 17:29 | XMS_ITS | Encounter Summary ---
Author Organization [facility] Address [address] [place] [address] Care Team Providers Care Senior Health Physics Technician Name Role Phone Timothy Banks MD Primary Care Provider [phone] Reason for Visit * Reason Comments Follow-up 6 mo f/u Edema Encounter Details Date Type Department Care Team (Latest Contact Info) Description 01/21/2022 11:15 AM CDT Office Visit [facility] Cardiology [address] [place] [address] Jayro Kaminski MD [address] [phone] Hypertensive left ventricular hypertrophy, without heart failure (Primary Dx); 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); RBBB; QAMAR (obstructive sleep apnea); Cardiac arrhythmia, unspecified cardiac arrhythmia type; [facility] current use of 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 Social History Tobacco Use Types Packs/Day Years Used Date Smoking Tobacco: Never Smokeless Tobacco: Never Alcohol Use Standard Drinks/Week Comments Yes 0 (1 standard drink = 0.6 oz pur e alcohol) Sex and Gender Information Value Date Recorded Sex Assigned at Not on file Legal Sex 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 Gender Identity Male 01/12/2020 7:43 PM CDT Sexual Orientation Straight 01/12/2020 7: 43 PM CDT documented as of this encounter Last Filed Vital Signs Vital Sign Reading Time Taken Comments Blood Pressure 120/68 01/21/2022 11:11 AM CDT Pulse 89 01/21/2022 11:11 AM CDT Temperature - - Respiratory Rate - - Oxygen Saturation 97% 01/21/2022 11: 11 AM CDT Inhaled Oxygen Concentration - - Weight 110.5 kg (243 lb 9.6 oz) 022 11:11 AM CDT Height 185.4 cm (6' 1 ) 01/21/2022 11:1 1 AM CDT Body Mass Index 32.14 01/21/2022 11:11 AM CDT documented in this encounter Progress Notes * Jayro Kaminski MD - 01/21/2022 11:15 AM CDT Images from the original note were not included. [facility] DATE OF VISIT: 08/03/2021 CHIEF COMPLAINT Chief Complaint Patient presents with Follow-up 6 mo f/u on RBBB, LVH, edema HPI Russ Kern is a 75 y.o. male with arrhythmia and PVCs. He was seen because of an upper respiratory tract infection and bronchitis by his primary care physician. Nurse practitioner noticed an irregular heartbeat an EKG showed right bundle branch block with PVCs. This led him to have an echocardiogram at [facility] which was normal except for moderate LVH. He did have mild left atrial enlargement. Mild mitral, aortic and tricuspid regurgitation. Diastolic dysfunction was present. He does have a history of pulmonary embolism, DVT and [place] filter. He had a recurrent DVT in [...] also lost significant weight and is congratulated MEDICAL HISTORY Past Medical History: Diagnosis Date Cataract 2018 Chronic bronchitis (CMS/HCC) (HCC) ? Chronic kidney disease 2009 GERD (gastroesophageal reflux disease) 1974 Heart disease 2016 HX OTHER MEDICAL recurrent DVT, gerd, s/p hiatal hernia [facility]; Comments: [facility] 03/31/2016 - HX OTHER MEDICAL CKD; Comments: [facility] 03/31/2016 - Sleep apnea 2018 Social History Tobacco Use Smoking status: Never Smoker Smokeless tobacco: Never Used Substance Use Topics Alcohol use: Yes Drug use: No Family History Problem Relation Age of Onset Alzheimer's disease Mother Alzheimer's disease Father Alzheimer's disease Sister Alzheimer's disease Brother MEDICATIONS Medication List Accurate as of August 03, 2021 10:33 AM. If you have any questions, ask your nurse or doctor. CONTINUE taking these medications bimatoprost 0.01 % ophthalmic drops Commonly known as: LUMIGAN Dexilant 60 mg capsule Generic drug: dexlansoprazole take 1 capsule by oral route every day for 8 weeks Eliquis 5 mg tablet Generic drug: apixaban TAKE 1 TABLET BY MOUTH TWICE DAILY folic acid 0.8 mg capsule 0.8 mg. furosemide 20 mg tablet Commonly known as: LASIX Take 1 tablet (20 mg total) by mouth daily as needed (swelling) multivitamin tablet ProAir HFA 90 mcg/actuation inhaler Generic drug: albuterol HFA inhale 2 puff by inhalation route every 4 - 6 hours as needed Symbicort 160-4.5 mcg/actuation inhaler Generic drug: budesonide-formoteroL inhale 2 puff by inhalation route every day in the morning and evening Vitamin D3 1,000 unit capsule Generic drug: cholecalciferol take 1 by Oral route every day ALLERGIES No Known Allergies REVIEW OF SYSTEMS Review of Systems Constitutional: [...] for environmental allergies. PHYSICAL EXAM Blood pressure 124/72, pulse 81, height 185.4 cm (6' 1 ), weight 119.3 kg (263 lb), SpO2 97 %. Body mass index is 34.7 kg/m??. Physical Exam Vitals reviewed. HENT: Head: [...] TESTS Lab Results Component Value Date WBC 5.1 09/01/2020 HGB 12.3 (L) 09/01/2020 HCT 37.8 (L) 09/01/2020 MCV 86.8 09/01/2020 Chemistry Component Value Date/Time CO2 30 09/01/2020 0926 CREATININE 1.21 09/01/2020 0926 Component Value Date/Time CALCIUM 9.7 09/01/2020 0926 BILITOT Negative 01/25/2014 0516 No results found for: CHOL No results found for: HDL No results found for: LDL] No results found for: LDLCALC No results [...] the aortic valve. Trace aortic valve regurgitation. Holter monitor June 2017: Normal sinus rhythm with average heart rate 84 beats per minute. Low-frequency ventricular ectopy. Frequent supraventricular ectopy including short atrial runs, 37 atrial pairs, atrial bigeminy and atrial trigeminy and 5470 single PACs. Carotid artery ultrasound 06/28/2016 shows less than 50% bilateral carotid disease. ASSESSMENT Diagnoses and all orders for this visit: 1. Lightheadedness (Primary) Feeling better. 2. 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 Hypertensive Left ventricular hypertrophy without heart failure Moderate but no evidence of failure 4. [facility] current use of 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 No bleeding problems 5. Cardiac arrhythmia, unspecified cardiac arrhythmia type Low-frequency frequency ventricular ectopy. High frequency supraventricular ectopy and brief atrialruns. Asymptomatic however. 6. RBBB No evidence of higher degree block 7. SVT: No sustained symptoms 8. Obstructive sleep apnea: on CPAP 9. History of COVID -19 PLAN/RECOMMENDATIONS Furosemide on a p.r.n. basis He is doing well and is stable at this point. I recommend he continue his current cardiac regimen without change including Eliquis and follow-up in 6 months or sooner as clinically indicated Jayro Kaminski MD, [facility] documented in this encounter Plan of Treatment Not on file documented as of this encounter Visit Diagnoses Diagnosis Hypertensive left ventricular hypertrophy, without heart failure- Primary 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) RBBB QAMAR (obstructive sleep apnea) Obstructive sleep apnea (adult) (pediatric) Cardiac arrhythmia, unspecified cardiac arrhythmia type [facility] current use of 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 documented in this encounter Discontinued Medications Medication Sig Discontinue Reason Start Date End Da te multivitamin tablet Therapy completed 11/14/2016 01/21/2022 Eliquis 5 mg tabletIndications: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),[facility] current use of 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 TAKE 1 TABLET BY MOUTH TWICE DAILY Therapy completed 08/05/2021 01/21/2022 documented as of this encounter Care Teams Senior Health Physics Technician Relationship Specialty Start Date End Date Timothy Banks MD PCP - General 07/08/16 documented as of this encounter
--- OUTSIDE RECORDS SUMMARY | 2024-04-09 17:29 | XMS_ITS | Encounter Summary ---
Author Organization [facility] Address [address] [place] [address] Care Team Providers Care Systems Development Manager Name Role Phone Timothy Banks MD Primary Care Provider Encounter Details Date Type Department Care Team (Late st Contact Info) Description 11/30/2022 Orders Only [facility] [address] [place] [address] Scanning, Provider Social History Tobacco Use Types Packs/Day Years Used Date Smoking Tobacco: Never Smokeless Tobacco: Never Alcohol Use Standard Drinks/Week Comments Yes 0 (1 standard drink = 0.6 oz pur e alcohol) Sex and Gender Information Value Date Recorded Sex Assigned at Not on file Legal Sex Male 4:19 AM CABINET 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 Gender Identity Male 01/12/2020 7:43 PM CDT Sexual Orientation Straight 01/12/2020 7: 43 PM CDT documented as of this encounter Plan of Treatment Not on file documented as of this encounter Procedures Procedure Name Priority Date/Time Associated Diagnosis Comments SCAN - LABS 11/30/2022 documented in this encounter Results * SCAN - LABS (11/30/2022) us Provider Scanning Final Result documented in this encounter Visit Diagnoses Not on filedocumented in this encounter Care Teams Systems Development Manager Relationship Specialty Start Date End Date Timothy Banks MD PCP - General 07/08/16 documented as of this encounter
--- OUTSIDE RECORDS SUMMARY | 2024-04-09 17:29 | XMS_ITS | Encounter Summary ---
Author Organization [facility] Address [address] [place] [address] Care Team Providers Care Longshore Equipment Operator Name Role Phone Timothy Banks MD Primary Care Provider [phone] Encounter Details Date Type Department Care Team (Late st Contact Info) Description 01/08/2024 Telephone Family Physicians [facility] [address] [place] [address] Bogdan Nguyễn MD [address] [place] [id number] Social History Tobacco Use Types Packs/Day Years Used Date Smoking Tobacco: Never Smokeless Tobacco: Never Alcohol Use Standard Drinks/Week Comments Yes 0 (1 standard drink = 0.6 oz pur e alcohol) Sex and Gender Information Value Date Recorded Sex Assigned at Not on file 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 documented in this encounter Plan of Treatment Not on file documented as of this encounter Visit Diagnoses Not on filedocumented in this encounter Care Teams Longshore Equipment Operator Relationship Specialty Start Date End Date Timothy Banks MD PCP - General 07/08/16 documented as of this encounter
--- OUTSIDE RECORDS SUMMARY | 2024-04-09 17:29 | XMS_ITS | Encounter Summary ---
Author Organization [facility] Healthcare Address [address] [place] [address] Care Team Providers Care Permaculture Designer Name Role Phone Timothy Banks MD Primary Care Provider [phone] Reason for Visit * Reason Comments Follow-up 6 month follow up. 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; 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) Social History Tobacco Use Types Packs/Day Years Used Date Smoking Tobacco: Never Smokeless Tobacco: Never Alcohol Use Standard Drinks/Week Comments Yes 0 (1 standard drink = 0.6 oz pur e alcohol) Sex and Gender Information Value Date Recorded Sex Assigned at Not on file Legal Sex Male 4:19 AM SCRAPE GATHERER Gender Identity Male 01/12/2020 7:43 PM CDT Sexual Orientation Straight 01/12/2020 7: 43 PM CDT documented as of this encounter Last Filed Vital Signs Vital Sign Reading Time Taken Comments Blood Pressure 124/80 08/11/2023 9:19 AM CDT Pulse 74 08/11/2023 9:19 AM CDT Temperature - - Respiratory Rate - - Oxygen Saturation 97% 08/11/2023 9:19 AM CDT Inhaled Oxygen Concentration - - Weight 101 kg (222 lb 11.2 oz) 08/11/2023 9:19 A M CDT Height 185.4 cm (6' 1 ) 08/11/2023 9:19 AM CDT Body Mass Index 29.38 08/11/2023 9:19 AM CDT documented in this encounter Progress Notes * Jayro Kaminski MD - 08/11/2023 9:45 AM CDT Images from the original note were not included. [facility] DATE OF VISIT: 08/11/2023 CHIEF COMPLAINT Chief Complaint Patient presents with Follow-up 6 month follow up. HPI Russ Kern is a 77 y.o. male with arrhythmia and PVCs. He was seen because of an upper respiratory tract infection and bronchitis by his primary care physician. Nurse practitioner noticed an irregular heartbeat an EKG showed right bundle branch block with PVCs. This led him to have an echocardiogram at [facility] which was normal except for moderate [...] syncope, presyncope, paroxysmal nocturnal dyspnea, orthopnea, palpitations MEDICAL HISTORY Past Medical History: Diagnosis Date Cataract 2018 Chronic bronchitis (HCC) ? Chronic kidney disease 2009 GERD (gastroesophageal reflux disease) 1974 Heart disease 2016 HX OTHER MEDICAL recurrent DVT, gerd, s/p hiatal hernia [facility]; Comments: [facility] 03/31/2016 - HX OTHER MEDICAL CKD; Comments: [facility] 03/31/2016 - Sleep apnea 2018 Social History Tobacco Use Smoking status: Never Smoker Smokeless tobacco: Never Used Substance Use Topics Alcohol use: Yes Drug use: No Family History Problem Relation Age of Onset Alzheimer's disease Mother Alzheimer's disease Father Alzheimer's disease Sister Alzheimer's disease Brother MEDICATIONS Medication List Accurate as of August 11, 2023 9:42 AM. If you have any questions, ask your nurse or doctor. CONTINUE taking these medications apixaban 5 mg tablet Commonly known as: ELIQUIS Take 1 tablet (5 mg total) by mouth 2 (two) times a day bimatoprost 0.01 % ophthalmic drops Commonly known as: LUMIGAN folic acid 0.8 mg capsule 0.8 mg. furosemide 20 mg tablet Commonly known as: LASIX Take 1 tablet (20 mg total) by mouth daily as needed (swelling) hydrocortisone 2.5 % ointment LANSOPRAZOLE 3 MG/ML SUSP Commonly known as: PREVACID ProAir HFA 90 mcg/actuation inhaler Generic drug: albuterol HFA inhale 2 puff by inhalation route every 4 - 6 hours as needed Symbicort 160-4.5 mcg/actuation inhaler Generic drug: budesonide-formoteroL inhale 2 puff by inhalation route every day in the morning and evening Vitamin D3 25 mcg (1,000 unit) capsule [...] for environmental allergies. PHYSICAL EXAM Blood pressure 124/80, pulse 74, height 185.4 cm (6' 1 ), weight 101 kg (222 lb 11.2 oz), SpO2 97%. Body mass index is 29.38 kg/m??. Physical Exam Vitals reviewed. HENT: Head: [...] TESTS Lab Results Component Value Date WBC 3.0 (L) 08/30/2022 HGB 11.7 (L) 08/30/2022 HCT 36.7 (L) 08/30/2022 MCV 87.4 08/30/2022 Chemistry Component Value Date/Time CO2 30 08/30/2022 0845 CREATININE 1.36 (H) 08/30/2022 0845 Component Value Date/Time CALCIUM 10.0 08/30/2022 0845 BILITOT Negative 01/25/2014 0516 No results found [...] Moderate but no evidence of failure 4. [facility] current use of 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 No bleeding problems 5. Cardiac arrhythmia, unspecified cardiac arrhythmia type Low-frequency frequency ventricular ectopy. High frequency supraventricular ectopy and brief atrialruns. Asymptomatic however. 6. RBBB No evidence of higher degree block 7. SVT: No sustained symptoms 8. Obstructive sleep apnea: on CPAP 9. Atypical chest pain Not anginal and resolved PLAN/RECOMMENDATIONS He is doing well and is stable at this point. I recommend he continue his current cardiac regimen without change including Eliquis because of his venous 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 And chronic anticoagulation. and follow-up in 6 months or sooner as clinically indicated Jayro Kaminski MD, FACC documented in this encounter Plan of Treatment Not on file documented as of this encounter Visit Diagnoses Diagnosis Cardiac arrhythmia, unspecified cardiac arrhythmia type- Primary RBBB QAMAR (obstructive sleep apnea) Obstructive sleep apnea (adult) (pediatric) PSVT (paroxysmal supraventricular tachycardia) (HCC) Paroxysmal supraventricular tachycardia [facility] current use of 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) documented in this encounter Care Teams Permaculture Designer Relationship Specialty Start Date End Date Timothy Banks MD PCP - General 07/08/16 documented as of this encounter
--- OUTSIDE RECORDS SUMMARY | 2024-04-09 17:29 | XMS_ITS | Encounter Summary ---
Author Organization [facility] Address [address] [facility] [address] [place] [address] Phone Care Team Providers Care Rn Case Manager Hospice Name Role Phone Timothy Banks MD Primary Care Provider + [phone] Reason for Visit * Oncology (Routine) - Authorized Specialty Diagnoses / Procedures Referred By Contshakila t Referred To Contact Oncology Diagnoses 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) Hlilary Gama MD [address] [place] [address] Phone: tel: fax: [place] [address] [place] [address] Phone: tel: fax: Referral ID Status Reason Start Date Expiration Date Visits Requested Visits Authorized [id number] Authorized Specialty Services Required 04/10/2017 04/09/2024 99 99 Encounter Details Date Type Department Care Team (Latest Contact Info) Description 08/30/2022 9:45 AM CDT Office Visit [facility] Hematology [address] 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 Gender Identity Male 01/12/2020 7:43 PM CDT Sexual Orientation Straight 01/12/2020 7: 43 PM CDT documented as of this encounter Last Filed Vital Signs Vital Sign Reading Time Taken Comments Blood Pressure 116/76 08/30/2022 9:13 AM CDT Pulse 72 08/30/2022 9:13 AM CDT Temperature 36.2 ??C (97.2 ??F) 08/30/2022 9:13 AM CD T Respiratory Rate 18 08/30/2022 9:13 AM CDT Oxygen Saturation 98% 08/30/2022 9:13 AM CDT Inhaled Oxygen Concentration - - Weight 98.4 kg (217 lb) 08/30/2022 9:13 AM CDT Height - - Body Mass Index 28.63 07/29/2022 11:32 AM CDT documented in this encounter Ordered Prescriptions Prescription Sig Dispense Quantity Refills Last Filled Start Date End Date apixaban (ELIQUIS) 5 mg tabletIndications:L dianna term current use of 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 Take 1 tablet (5 mg total) by mouth 2 (two) times a day 180 tablet 3 08/30/2022 3 documented in this encounter Progress Notes * Brittany Lerner, JOSÉ MIGUEL - 08/30/2022 9:45 AM CDT PATIENT NAME: Russ Kern : 1945 DATE OF SERVICE: 08/30/2022 Diagnosis: Recurrent thromboembolic disease. Current Treatment: 1. 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 Warfarin started for 6 months. 2. 2005, right lower extremity DVT after warfarin discontinuation. Warfarin restarted. 3. 2011, left lower extremity DVT occurred after re-initiation of warfarin after holding 5 days forcolonoscopy. 4. 2017, right lower extremity DVT occurred following re-initiation of warfarin after holding for asmall bowel obstruction. 5. Currently on Eliquis 5mg BID. Discussed decreasing to 2.5mg BID after his trip. HPI: Mr. Kern is a 76 year old male who presents for follow up of recurrent thromboembolic disease. To review, Mr. Kern states he initially developed a left lower extremity DVT and pulmonary embolism in 2004 following hiatal hernia repair. This required a Braxton filter placement, as well as groin venous stenting. The patient was then placed on warfarin for 6 months, at which time, it was discontinued. He then developed a recurrent right lower extremity DVT in 2005 after discontinuation of warfarin. At this time, warfarin was restarted. Then, the patient developed a left lower extremity DVT in 2011 after he was off warfarin for 5 days to undergo a colonoscopy. He reports that, after being offof warfarin for 5 days, he restarted warfarin without a bridge. Shortly after restarting warfarin, he developed a left lower extremity DVT. The patient then reports, in 2017, he developed a small bowel obstruction believed to be secondary to viral gastroenteritis. As such, he required NG tube placement and was NPO. He received Lovenox while in the hospital. He was not discharged with a Lovenox bridge and was instructed to restart warfarin upon returning home. The patient states that, approximately 1 to 2 days after restarting warfarin, he then noticed a right lower extremity pain and was found to have a recurrent clot in the right lower extremity. He reported compliance with warfarin and that his INR was generally in the therapeutic range however following his initial visit with hematology in August 2017, it was deemed reasonable to switch him to Eliquis BID, as he would not require further monitoring and would not have dietary restrictions. He has done well with this since that time without evidence of bleeding or recurrent clots. He denies any significant changes to his health since he was last here. He did have a hip bursitis treated with oral steroids and ultimately a steroid injection which did help. He denies any increase in swelling or erythema. He denies significant bleeding. He is going to PT to work on his gait as he has anold torn tendon injury in his right foot. His plastics nurse recommended a brace. He is going to [employer] 3 weeks and taking river cruise. He will also go to [employer] and see the [employer] play. ALLERGIES: No Known Allergies CURRENT MEDICATION: Current Outpatient Medications: albuterol HFA (PROAIR HFA) 90 mcg/actuation inhaler, inhale 2 puff by inhalation route every 4 - 6 hours as needed, Disp: 0 Inhaler, Rfl: 0 apixaban (ELIQUIS) 5 mg tablet, Take 1 tablet (5 mg total) by mouth 2 (two) times a day, Disp: 60 tablet, Rfl: 11 bimatoprost (LUMIGAN) 0.01 % ophthalmic drops, Administer 1 drop into both eyes nightly, Disp: , Rfl: budesonide-formoterol (SYMBICORT) 160-4.5 mcg/actuation inhaler, inhale 2 puff by inhalation route every day in the morning and evening, Disp: 0 Inhaler, Rfl: 0 cholecalciferol (VITAMIN D3) 1,000 unit capsule, take 1 by Oral route every day, Disp: 0, Rfl: 0 folic acid 0.8 mg capsule, 0.8 mg., Disp: 0, Rfl: 0 furosemide (LASIX) 20 mg tablet, Take 1 tablet (20 mg total) by mouth daily as needed (swelling), Disp: 30 tablet, Rfl: 1 hydroCHLOROthiazide (MICROZIDE) 12.5 mg capsule, Take 1 capsule (12.5 mg total) by mouth daily, Disp: , Rfl: hydrocortisone 2.5 % ointment, , Disp: , Rfl: LANSOPRAZOLE 3 MG/ML SUSP (PREVACID), , Disp: , Rfl: HISTORY Social History Tobacco Use Smoking status: Never Smokeless tobacco: Never Substance and Sexual Activity Drug use: No Sexual activity: Yes Partners: Female Comment: Spouse Alcohol Use: Not on file VITALS: Vitals BP 116/76 (BP Location: Right arm) Pulse 72 Temp 36.2 ??C (97.2 ??F) (Transdermal) Resp 18 Wt 98.4 kg (217 lb) SpO2 98% BMI 28.63 kg/m?? PHYSICAL EXAM: Physical Exam Vitals reviewed. Constitutional: Appearance: Normal appearance. HENT: Head: Normocephalic and atraumatic. Mouth/Throat: Mouth: Mucous membranes are moist. Pharynx: Oropharynx is clear. Eyes: Conjunctiva/sclera: Conjunctivae normal. Pupils: Pupils are equal, round, and reactive to light. Cardiovascular: Rate and Rhythm: Normal rate and regular rhythm. Heart sounds: Normal heart sounds. Pulmonary: Effort: Pulmonary effort is normal. Breath sounds: Normal breath sounds. Abdominal: General: Bowel sounds are normal. Palpations: Abdomen is soft. Musculoskeletal: General: Normal range of motion. Cervical back: Normal range of motion and neck supple. Skin: General: Skin is warm. Neurological: General: No focal deficit present. Mental Status: He is alert and oriented to person, place, and time. Psychiatric: Mood and Affect: Mood normal. Behavior: Behavior normal. LABORATORY DATA: Hospital Outpatient Visit on 08/30/2022 Component Date Value Ref Range Status Sodium 08/30/2022 140 135 - 145 mmol/L Final Potassium, pl 08/30/2022 4.7 3.3 - 4.9 mmol/L Final Chloride 08/30/2022 103 97 - 110 mmol/L Final CO2 08/30/2022 30 22 - 32 mmol/L Final Anion gap 08/30/2022 7 2 - 15 mmol/L Final BUN 08/30/2022 21 8 - 25 mg/dL Final Creatinine 08/30/2022 1.36 (H) 0.80 - 1.30 mg/dL Final Glucose 08/30/2022 96 70 - 199 mg/dL Final Calcium 08/30/2022 10.0 8.5 - 10.3 mg/dL Final Retics, absolute 08/30/2022 0.038 0.020 - 0.087 M/cumm Final Retics 08/30/2022 0.91 0.50 - 1.80 % Final WBC 08/30/2022 3.0 (L) 3.8 - 9.8 K/cumm Final Hgb 08/30/2022 11.7 (L) 13.8 - 17.2 g/dL Final Hct 08/30/2022 36.7 (L) 40.7 - 50.3 % Final Plt 08/30/2022 310 140 - 440 K/cumm Final MPV 08/30/2022 9.8 6.8 - 10.4 fL Final RBC 08/30/2022 4.20 (L) 4.50 - 5.70 M/cumm Final MCV 08/30/2022 87.4 80.0 - 97.6 fL Final MCH 08/30/2022 27.9 26.7 - 33.7 pg Final MCHC 08/30/2022 31.9 (L) 32.7 - 35.5 g/dL Final RDW CV 08/30/2022 18.2 (H) 11.8 - 14.6 % Final NRBC abs 08/30/2022 0.00 0.00 - 0.01 K/cumm Final Neutrophil abs 08/30/2022 1.2 (L) 1.8 - 6.6 K/cumm Final Lymphocyte abs 08/30/2022 1.1 (L) 1.2 - 3.3 K/cumm Final Monocyte abs 08/30/2022 0.6 0.2 - 1.2 K/cumm Final Eosinophil abs 08/30/2022 0.1 0.0 - 0.5 K/cumm Final Basophil abs 08/30/2022 0.0 0.0 - 0.2 K/cumm Final Neutrophil pct 08/30/2022 38.2 % Final Lymphocyte pct 08/30/2022 36.9 % Final Monocyte pct 08/30/2022 20.0 % Final Eosinophil pct 08/30/2022 3.5 % Final Basophil pct 08/30/2022 1.4 % Final eGFR 08/30/2022 54 (L) 90 - 130 mL/min/1.73 m2 Final ASSESSMENT AND PLAN: Patient Active Problem List Diagnosis Ventricular premature beats correction current use of 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 RBBB 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) Hypertensive left ventricular hypertrophy LVH (left ventricular hypertrophy) Lightheadedness Cardiac arrhythmia Chronic renal insufficiency, stage III (moderate) (HCC) Snoring Hypersomnolence Tiredness Other fatigue QAMAR (obstructive sleep apnea) Bilateral lower extremity edema History of COVID-19 Atypical chest pain 1. Thromboembolic disease. Mr. Kern is a 76 year old male with history of thromboembolic disease initially diagnosed in 2005 and managed with indefinite anticoagulation. He has had recurrent lower extremity DVTs and physical exam suggestive of chronic lower extremity DVTs. Nonetheless, per patient history, he appears to have had recurrent DVTs in the setting of warfarin discontinuation or following warfarin re-initiation without a bridge, likely due to initial procoagulant affects of warfarin. As such, he transitioned to Eliquis following his last visit in August 2017 and has done wellon 5mg BID. He did well with his colonoscopy previously with a Lovenox bridge and resumption of Eliquis after the procedure however reports last year he just held Eliquis 2 days and did fine. We would consider this for any future surgeries or procedures. We did discuss decreasing to 2.5mg BID for extended prophylaxis however I would wait until after his trip. We also discussed compression socks with travel. 2. Anemia. He does have a mild anemia likely as a result of mild renal insufficiency. This has beenstable. DISPOSITION: The patient will return follow up in one year. They know to contact our office with any questions or concerns prior to the next follow up appointment. Brittany Lerner NP documented in this encounter Plan of Treatment Not on file documented as of this encounter Results * (ABNORMAL) Basic metabolic panel (08/24/2023 9:00 AM CDT) Sodium 144 135 - 145 mmol/L Comment:Testing performed by : [facility], [address] [place] [phone] Potassium, pl 4.7 3.3 - 4.9 mmol/L [facility] Comment:Testing performed by : [facility], [address] [place] [phone] Chloride 107 97 - 110 mmol/L [facility] Comment:Testing performed by : [address] [phone] CO2 27 22 - 32 mmol/L [facility] Comment:Testing performed by : [address] [phone] Anion gap 10 2 - 15 mmol/L [facility] Comment:Testing performed by : [address] [phone] BUN 16 6 - 25 mg/dL [facility] Comment:Testing performed by : [address] [phone] Creatinine 1.31(H) 0.80 - 1.30 mg/dL [facility] Comment:Testing performed by : [address] [phone] Glucose 83 70 - 199 mg/dL [facility] Comment: Interpretive Data Fasting glucose >/= 126 mg/dl is diagnostic for diabetes. ?? Fasting is defined as no caloric intake for at least 8 hours. Fasting glucose between 100 mg/dl to 125 mg/dl is diagnostic of prediabetes. In a patient with classic symptoms of hyperglycemia or hyperglycemic crisis, a random glucose >/= 200 mg/dl is diagnostic for diabetes. In the absence of unequivocal hyperglycemia, results should be confirmed by repeat testing. The classification and Diagnosis of Diabetes Diabetes Care 2021; 46: S19-S40. Current interpretive data was last revised 2022. Testing performed by: [facility], [address] [place] [phone] Calcium 9.5 8.5 - 10.3 mg/dL [facility] Comment:Testing performed by : [facility], [address] [place] [phone] Blood 08/24/2023 9:00 AM CDT 08/24/2023 9:01 AM CDT Brittany Lerner NP LAB BLOOD ORDERABLES Final Result Performing Organization Address [facility] de Phone Number [facility] [place] [address] * Reticulocyte Count (08/24/2023 9:00 AM CDT) Retics, absolute 0.038 0.020 - 0.087 M/cumm Comment:Testing performed by : [facility], [address] [place] [phone] Retics 0.82 0.50 - 1.80 % [facility] Comment:Testing performed by : [facility], [address] [place] [phone] Blood 08/24/2023 9:00 AM CDT 08/24/2023 9:01 AM CDT Brittany Lerner NP LAB BLOOD ORDERABLES Final Result Performing Organization Address [facility] Co de Phone Number [facility] [place] [address] * (ABNORMAL) CBC with auto differential (08/24/2023 9:00 AM CDT) WBC 2.1(L) 3.8 - 9.8 K/cumm Comment:Testing performed by : [facility], [address] [place] [address] Hgb 13.3(L) 13.8 - 17.2 g/dL [facility] Comment:Testing performed by : [place] [address] Hct 40.9 40.7 - 50.3 % [facility] Comment:Testing performed by : [facility], [address] [place] [address] Plt 224 140 - 440 K/cumm [facility] Comment:Testing performed by : [place] [address] MPV 10.4 6.8 - 10.4 fL [facility] Comment:Testing performed by : [place] [address] RBC 4.65 4.50 - 5.70 M/cumm [facility] Comment:Testing performed by : [place] [address] MCV 88.0 80.0 - 97.6 fL [facility] Comment:Testing performed by : [place] [address] MCH 28.6 26.7 - 33.7 pg [facility] Comment:Testing performed by : [place] [address] MCHC 32.5(L) 32.7 - 35.5 g/dL [facility] Comment:Testing performed by : [place] [address] RDW CV 19.9(H) 11.8 - 14.6 % [facility] Comment:Testing performed by : [place] [address] NRBC abs 0.00 0.00 - 0.01 K/cumm [facility] Comment:Testing performed by : [place] [id number] Blood 08/24/2023 9:00 AM CDT 08/24/2023 9:01 AM CDT Brittany Lerner MEDICAL RECORDS SUPERVISOR LAB BLOOD ORDERABLES Final Result [facility] [place] [address] documented in this encounter Visit Diagnoses Diagnosis 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) 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 documented in this encounter Discontinued Medications Medication Sig Discontinue Reason Start Date End Da te apixaban (ELIQUIS) 5 mg tabletIndications: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
--- OUTSIDE RECORDS SUMMARY | 2024-04-09 17:29 | XMS_ITS | Encounter Summary ---
Author Organization [facility] Address [address] [place] [address] Care Team Providers Care School Administrator Name Role Phone Timothy Banks MD Primary Care Provider [phone] Reason for Visit * Diagnostic Imaging (Routine) - Closed Specialty Diagnoses / Procedures Referred By Contac t Referred To Contact Diagnoses Hypertensive left ventricular hypertrophy, without heart failure Atypical chest pain Procedures NM MPI SPECT (Rest and/or Stress) Multiple Studies Veena Malone MD [address] [address] Phone: tel: fax: Referral ID Status Reason Start Date Expiration Date Visits Re quested Visits Authorized [id number] Closed 07/29/2022 08/28/2023 1 1 Encounter Details Date Type Department Care Team (Latest Contact Info) Description 09/07/2022 9:15 AM CDT Ancillary Procedure [facility] Cardiology [address] [address] [address] [place] [address] Hypertensive left ventricular hypertrophy, without heart failure; Atypical chest pain Social History Tobacco Use Types Packs/Day Years Used Date Smoking Tobacco: Never Smokeless Tobacco: Never Alcohol Use Standard Drinks/Week Comments Yes 0 (1 standard drink = 0.6 oz pur e alcohol) Sex and Gender Information Value Date Recorded Sex Assigned at Not on file Legal Sex Male 4:19 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 Gender Identity Male 01/12/2020 7:43 PM CDT Sexual Orientation Straight 01/12/2020 7: 43 PM CDT documented as of this encounter Plan of Treatment Not on file documented as of this encounter Procedures Procedure Name Priority Date/Time Associated Diagnosis Comments NM MPI SPECT (REST AND/OR STRESS) MULTIPLE STUDIES Schedule Routine, Read Routine (OP Routine) 09/07/2022 10:52 AM CDT Hypertensive left ventricular hypertrophy, without heart failure Atypical chest pain documented in this encounter Results * NM MPI SPECT (Rest and/or Stress) Multiple Studies (09/07/2022 10:52 AM CDT) Anatomical Region Laterality Modality Body N/A Nuclear Medicine 09/07/2022 9:39 AM CDT Narrative 09/07/2022 12:47 PM CDT [facility] Cardiology [address] [facility] [address], [place] [address] [address] [facility] [address] [address] [address] P:[phone] P:[phone] MPI Imaging Report Patient Name: NADEEM AMAYA W : 1945 Study Date: 09/07/2022 9:39:10 AM Gender: M Tech: [facility] Location: [place] Ref.Provider: VEENA MALONE Height(Cm): 185.4 BSA: Weight(Kg): 98.4 BMI: 28.63Order Provider: VEENA MALONE - Physician: Referring Physician: Dr. Banks. HCG Physician: Agusto Malone M.D. Interpreting Physician: Agusto Malone M.D. Stress Supervision: Agusto Malone M.D. Procedures: Myocardial perfusion imaging with Tc99M Sestamibi SPECT at rest and stress post regadenoson (Lexiscan) infusion. Indications: Chest Pain. PVC's, and Hypertension. Findings: Procedural Findings: One day rest/stress was used. Tc99m Sestamibi injected IV at rest was 12.8 millicuries. 37.6 millicuries of Tc99M Sestamibi injected IV during Lexiscan stress. Lexiscan 0.4mg administered IV over 10 seconds. Patient had no symptoms during stress test. Baseline heart rate was 68 BPM. Maximum Heart Rate Achieved was: 109 BPM. Baseline blood pressure was 118/62 mmHg. Post Stress Blood Pressure was 120/62 mmHg. Termination: Protocol complete. Resting ECG: Normal sinus rhythm, RBBB, pet care attendant -IMI, TWI - consider inferior ischemia, frequent PACs. Post EC mm or more downsloping inf/lat ST depression. Findings are suggestive of ischemia. Specificity of the observed ST changes is reduced in light of the abnormal resting ECG. Arrhythmia: Frequent APCs. Perfusion Findings: Abnormal perfusion imaging - see below. Technical quality of study is excellent. Prone imaging was not performed. Left ventricle cavity size at rest is normal. Left ventricle cavity size with stress is unchanged. A TID of 0.85 was automatically calculated. defect 1: Size is small. Severity is mild to moderate in intensity. Location of defect is in the mid inferior segment, apical septal segment and apical inferior segment. Reversibility is full. Type of defect is ischemia. LV Function: Global left ventricular function is normal. Left ventricular ejection fraction is 61 %. Conclusions: 1 mm or more downsloping inf/lat ST depression. Findings are suggestive of ischemia. Specificity of the observed ST changes is reduced in light of the abnormal resting ECG. Global left ventricular function is normal. Left ventricular ejection fraction is 61 %. Myocardial perfusion imaging is abnormal for mild, mid to apical inferior, apical septal ischemia. Electronically Signed By: Veena Malone MD 2022-09-07 12:47:15 CDT Electronically Signed By: Veena Malone MD 2022-09-07 12:47:15 CDT CC: CC: Procedure Note Veena Malone MD - 09/07/2022 [facility] Cardiology [address] [facility] [address], [place] [address] [address] [address] [id number], [place] [address] P:[phone] P:[phone] MPI Imaging Report Patient Name: NADEEM AMAYA atient ID: [id number] : [id number] Date: 09/07/2022 9:39:10 AM Gender: MAccession #: [id number] Tech: RAYNA, CNMTLocation: [place] Ref.Provider: Vernon MALONE(Cm): 185.4 BSA: Weight(Kg): 98.4 BMI: 28.63Order Provider: VEENA MALONE - Physician: Referring Physician: Dr. Banks. HCG Physician: Agusto Malone M.D.Interpreting Physician: Agusto Malone M.D. Stress Supervision: Agusto Malone M.D. Procedures: Myocardial perfusion imaging with Tc99M Sestamibi SPECT at rest and stresspost regadenoson (Lexiscan) infusion. Indications: Chest Pain. PVC's, and Hypertension. Findings: Procedural Findings: One day rest/stress was used. Tc99m Sestamibi injected IV at rest was 12.8millicuries. 37.6 millicuries of Tc99M Sestamibi injected IV during Lexiscan stress.Lexiscan 0.4mg administered IV over 10 seconds. Patient had no symptoms during stresstest. Baseline heart rate was 68 BPM. Maximum Heart Rate Achieved was: 109 BPM. Baselineblood pressure was 118/62 mmHg. Post Stress Blood Pressure was 120/62 mmHg. Termination: Protocol complete. Resting ECG: Normal sinus rhythm, RBBB, pet care attendant -IMI, TWI - consider inferior ischemia,frequent PACs. Post EC mm or more downsloping inf/lat ST depression. Findings are suggestive ofischemia. Specificity of the observed ST changes is reduced in light of the abnormalresting ECG. Arrhythmia: Frequent APCs. Perfusion Findings: Abnormal perfusion imaging - see below. Technical quality of study isexcellent. Prone imaging was not performed. Left ventricle cavity size at rest is normal.Left ventricle cavity size with stress is unchanged. A TID of 0.85 was automaticallycalculated. defect 1: Size is small. Severity is mild to moderate in intensity. Location ofdefect is in the mid inferior segment, apical septal segment and apical inferior segment.Reversibility is full. Type of defect is ischemia. LV Function: Global left ventricular function is normal. Left ventricular ejectionfraction is 61 %. Conclusions: 1 mm or more downsloping inf/lat ST depression. Findings are suggestive ofischemia. Specificity of the observed ST changes is reduced in light of the abnormalresting ECG. Global left ventricular function is normal. Left ventricular ejectionfraction is 61 %. Myocardial perfusion imaging is abnormal for mild, mid to apical inferior,apical septal ischemia. Electronically Signed By: Veena Malone MD 2022-09-07 12:47:15 CDT Electronically Signed By: Veena Malone MD 2022-09-07 12:47:15 CDT CC: CC: Veena Malone MD IMG NM PROCEDURES Final R esult documented in this encounter Visit Diagnoses Diagnosis Hypertensive left ventricular hypertrophy, without heart failure Atypical chest pain Other chest pain documented in this encounter Administered Medications Inactive Administered Medications - up to 3 most recent administrations Medication Order MAR Action Action Date Dose Rate Site regadenoson (LEXISCAN) 0.4 mg/5 mL injection 0.4 mg 0.4 mg, intravenous, Once, On Mon09/07/22 at 1130, For 1 dose, Administer IV push over 10 seconds., Indications: Myocardial Perfusion Imaging AdjunctIndications:Myocard ial Perfusion Imaging Adjunct Given 09/07/2022 10:57 AM CDT 0.4 mg tc-99m sestamibi unit dose injection 12.8 millicurie 12.8 millicurie, intravenous, Once in imaging, radiopharmaceutical, Starting on Mon09/07/22 at 0953, For 1 dose, Indications: Diagnostic RadiographyIndications:Merly gnostic Radiography Given 09/07/2022 9:53 AM CDT 12.8 millicuries tc-99m sestamibi unit dose injection 37.6 millicurie 37.6 millicurie, intravenous, Once in imaging, radiopharmaceutical, Starting on Mon09/07/22 at 1056, For 1 dose, Indications: Diagnostic RadiographyIndications:Merly gnostic Radiography Given 09/07/2022 10:58 AM CDT 37.6 millicuries documented in this encounter Care Teams School Administrator Relationship Specialty Start Date End Date Timothy Banks MD PCP - General 07/08/16 documented as of this encounter
--- OUTSIDE RECORDS SUMMARY | 2024-04-09 17:29 | XMS_ITS | Encounter Summary ---
Author Organization [facility] Address [address] [place] [address] Phone Care Team Providers Care Rerolling Machine Operator Name Role Phone Timothy Banks MD Primary Care Provider Encounter Details Date Type Department Care Team (Late st Contact Info) Description 01/25/2024 Telephone [facility] Cardiology [address] 8th [place] [address] [place] [address] Alberto Gallegos MD [address] [place] [address] Social History Tobacco Use Types Packs/Day Years Used Date Smoking Tobacco: Never Smokeless Tobacco: Never Alcohol Use Standard Drinks/Week Comments Yes 0 (1 standard drink = 0.6 oz pur e alcohol) Sex and Gender Information Value Date Recorded Sex Assigned at Not on file Legal Sex Male 4:19 AM TUBE BENDER HAND Gender Identity Male 01/12/2020 7:43 PM CDT Sexual Orientation Straight 01/12/2020 7: 43 PM CDT documented as of this encounter Plan of Treatment Not on file documented as of this encounter Visit Diagnoses Not on filedocumented in this encounter Care Teams Rerolling Machine Operator Relationship Specialty Start Date End Date Timothy Banks MD PCP - General 07/08/16 documented as of this encounter
--- OUTSIDE RECORDS SUMMARY | 2024-04-09 17:29 | XMS_ITS | Encounter Summary ---
Author Organization [facility] Address [address] [place] [address] Care Team Providers Care Chief Accountant Name Role Phone Timothy Banks MD Primary Care Provider [phone] Encounter Details Date Type Department Care Team (Late st Contact Info) Description 01/15/2024 Orders Only [facility] Cardiology [address] [place] [address] Virginia Lester NP [address] [place], [place] [id number] Social History Tobacco Use Types Packs/Day Years Used Date Smoking Tobacco: Never Smokeless Tobacco: Never Alcohol Use Standard Drinks/Week Comments Yes 0 (1 standard drink = 0.6 oz pur e alcohol) Sex and Gender Information Value Date Recorded Sex Assigned at Not on file Legal Sex Male 4:[address] Gender Identity Male 01/12/2020 7:43 PM CDT Sexual Orientation Straight 01/12/2020 7: 43 PM CDT documented as of this encounter Plan of Treatment Not on file documented as of this encounter Procedures Procedure Name Priority Date/Time Associated Diagnosis Comments CARDIOLOGY DOCUMENT SCAN Routine 01/09/2024 3:14 PM CDT documented in this encounter Results * Cardiology Document Scan (01/09/2024 3:14 PM CDT) Anatomical Region Laterality Modality Other Virginia Lester NP CV CARDIAC SERVICES PROCEDUR ES Final Result documented in this encounter Visit Diagnoses Not on filedocumented in this encounter Care Teams Chief Accountant Relationship Specialty Start Date End Date Timothy Banks MD PCP - General 07/08/16 documented as of this encounter
--- OUTSIDE RECORDS SUMMARY | 2024-04-09 17:29 | XMS_ITS | Encounter Summary ---
Author Organization [facility] Address [address] [place] [address] Care Team Providers Care Work Car Operator Name Role Phone Timothy Banks MD Primary Care Provider [phone] Reason for Referral * Consultation (Routine) - Authorized Specialty Diagnoses / Procedures Referred By Contac t Referred To Contact Cardiology Diagnoses SVT (supraventricular tachycardia) (HCC) Ritu Adame NP [address] [facility] [address] [address] Phone: tel: fax: Alberto Moffett MD [facility] [address] Phone: tel: fax: Referral ID Status Reason Start Date Expiration Date Visits Requested Visits Authorized [id number] Authorized Specialty Services Required 4 02/21/2025 1 1 Question Answer Are you referring this patient to the [facility] Atrial Fibrillation clinic at [facility]? No Please select the performing region: [facility] (All Locations) [[id number]] To provider: ALBERTO MOFFETT [[id number]] # of visits: 1 Comments New pt referral for SVT. Please call pt for an appt thank you! Encounter Details Date Type Department Care Team (Late st Contact Info) Description 01/23/[address] [facility] Cardiology [address] [facility] [address] [phone] Ritu Adame NP [address] [facility] [address] [place] [address] Social History Tobacco Use Types Packs/Day Years Used Date Smoking Tobacco: Never Smokeless Tobacco: Never Alcohol Use Standard Drinks/Week Comments Yes 0 (1 standard drink = 0.6 oz pur e alcohol) Sex and Gender Information Value Date Recorded Sex Assigned at Not on file Legal Sex Male 4:19 AM VAULT ATTENDANT Gender Identity Male 01/12/2020 7:43 PM CDT Sexual Orientation Straight 01/12/2020 7: 43 PM CDT documented as of this encounter Miscellaneous Notes * Telephone Encounter - Eve Sloan RN - 01/23/2024 2:05 PM CDT Referral placed to Dr. Moffett at [place] for SVT per CT. She has already provided pt with their contact information. documented in this encounter Plan of Treatment Scheduled Referrals Name Type Priority Associated Diagnoses Order Schedule Ambulatory referral to Cardiac Electrophysiology Outpatient Referral Routine SVT (supraventricular tachycardia) (CMS/HCC) (HCC) Expected: 02/06/2024 (Approximate), Expires: 01/22/2025 documented as of this encounter Visit Diagnoses Diagnosis SVT (supraventricular tachycardia) (HCC)- Primary Other specified cardiac dysrhythmias documented in this encounter Care Teams Work Car Operator Relationship Specialty Start Date End Date Timothy Banks MD PCP - General 07/08/16 documented as of this encounter
--- OUTSIDE RECORDS SUMMARY | 2024-04-09 17:29 | XMS_ITS | Encounter Summary ---
Author Organization [facility] Address [address] [place] [address] Phone Care Team Providers Care Returns Processor Name Role Phone Timothy Banks MD Primary Care Provider [phone] Encounter Details Date Type Department Care Team (Late st Contact Info) Description 03/22/2024 [id number] [facility] [address] 6 [place] [address] Adilene Gonsalves RN Social History Tobacco Use Types Packs/Day Years Used Date Smoking Tobacco: Never Smokeless Tobacco: Never Alcohol Use Standard Drinks/Week Comments Yes 0 (1 standard drink = 0.6 oz pur e alcohol) Sex and Gender Information Value Date Recorded Sex Assigned at Not on file Legal Sex Male 4:19 AM AUTOMOTIVE MACHINIST APPRENTICE Gender Identity Male 01/12/2020 7:43 PM CDT Sexual Orientation Straight 01/12/2020 7: 43 PM CDT documented as of this encounter Miscellaneous Notes * Telephone Encounter - Adilene Gonsalves RN - 03/22/2024 10:35 AM AUTOMOTIVE MACHINIST APPRENTICE Called and spoke with patient regarding voicemail left on nurses line requesting his lab appointment be cancelled on 03/28. Patient stated that he was able to cancel upcoming return office appointment but was unable to cancel lab appointment. 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 Patient has office number in case any questions or concerns arise. MOTIVE MACHINIST APPRENTICE MOTIVE MACHINIST APPRENTICE documented in this encounter Plan of Treatment Not on file documented as of this encounter Visit Diagnoses Not on filedocumented in this encounter Care Teams Returns Processor Relationship Specialty Start Date End Date Timothy Banks MD PCP - General 07/08/16 documented as of this encounter
--- OUTSIDE RECORDS SUMMARY | 2024-04-09 17:29 | XMS_ITS | Encounter Summary ---
Author Organization [facility] Address [address] [place] [address] Care Team Providers Care Die Equipment Operator Name Role Phone Timothy Banks MD Primary Care Provider [phone] Reason for Visit * Reason Comments RBBB SVT 6 mo f/u * Procedure (Routine) - Closed Specialty Diagnoses / Procedures Referred By Contac t Referred To Contact Cardiology Diagnoses RBBB Hypertensive left ventricular hypertrophy, without heart failure Atypical chest pain Abnormal stress ECG Reggie Jackson MD [address] [place], [place] [address] Phone: tel: fax: [facility] Cardiology [address] [place] [address] [place] [address] Phone: tel: fax: Referral ID Status Reason Start Date Expiration Date V isits Requested Visits Authorized [id number] Closed Specialty Services Required 09/09/2022 03/08/2023 1 1 Encounter Details Date Type Department Care Team (Latest Contact Info) Description 02/02/2023 8:45 AM CDT Office Visit [facility] Cardiology [address] [place] [phone] Jayro Kaminski MD [address] [address] Ventricular premature beats (Primary Dx); RBBB; Hypertensive left ventricular hypertrophy, without heart failure; Atypical chest pain; Abnormal stress ECG; care home current use of 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; QAMAR (obstructive sleep apnea) Social History Tobacco Use Types Packs/Day Years Used Date Smoking Tobacco: Never Smokeless Tobacco: Never Alcohol Use Standard Drinks/Week Comments Yes 0 (1 standard drink = 0.6 oz pur e alcohol) Sex and Gender Information Value Date Recorded Sex Assigned at Not on file Legal Sex Male 4:19 AM CRIBBING SETTER Gender Identity Male 01/12/2020 7:43 PM CDT Sexual Orientation Straight 01/12/2020 7: 43 PM CDT documented as of this encounter Last Filed Vital Signs Vital Sign Reading Time Taken Comments Blood Pressure 134/80 02/02/2023 8:35 AM CDT Pulse 78 02/02/2023 8:35 AM CDT Temperature - - Respiratory Rate - - Oxygen Saturation 96% 02/02/2023 8:35 AM CDT Inhaled Oxygen Concentration - - Weight 102.1 kg (225 lb) 02/02/2023 8:35 AM CDT Height 185.4 cm (6' 1 ) 02/02/2023 8:35 AM CDT Body Mass Index 29.69 02/02/2023 8:35 AM CDT documented in this encounter Progress Notes * Jayro Kaminski MD - 02/02/2023 8:45 AM CDT Images from the original note were not included. [facility] DATE OF VISIT: 02/02/2023 CHIEF COMPLAINT Chief Complaint Patient presents with ??? RBBB ??? SVT 6 mo f/u HPI Russ Kern is a 77 y.o. male with arrhythmia and PVCs. He was seen because of an upper respiratory tract infection and bronchitis by his primary care physician. Nurse practitioner noticed an irregular heartbeat an EKG showed right bundle branch block with PVCs. This led him to have an echocardiogram at [facility] which was normal except for moderate LVH. [...] nocturnal dyspnea orthopnea, significant edema or palpitations MEDICAL HISTORY Past Medical History: Diagnosis Date ??? Cataract 2017 ??? Chronic bronchitis (HCC) ? Chronic kidney disease 2009 ??? GERD (gastroesophageal reflux disease) 1973 ??? Heart disease 2015 ??? HX OTHER MEDICAL recurrent DVT, gerd, s/p hiatal hernia [facility], ; Comments: [facility] 03/31/2016 - ??? HX OTHER MEDICAL CKD; Comments: [facility] 03/31/2016 - ??? Sleep apnea 2017 Social History Tobacco Use ??? Smoking status: Never Smoker ??? Smokeless tobacco: Never Used Substance Use Topics ??? Alcohol use: Yes ??? Drug use: No Family History Problem Relation Age of Onset ??? Alzheimer's disease Mother ??? Alzheimer's disease Father ??? Alzheimer's disease Sister ??? Alzheimer's disease Brother MEDICATIONS Medication List Accurate as of February 02, 2023 8:51 AM. If you have any questions, ask [...] take 1 by Oral route every day STOP taking these medications diphenhydrAMINE 50 mg capsule Commonly known as: BENADRYL Stopped by: Jayro Kaminski MD hydroCHLOROthiazide 12.5 mg capsule Commonly known as: MICROZIDE Stopped by: Jayro Kaminski MD predniSONE 50 mg tablet Commonly known as: DELTASONE Stopped by: Jayro Kaminski MD ALLERGIES Allergies Allergen Reactions ??? Iv Contrast Dye [Iodinated Contrast Media] Hives [...] for environmental allergies. PHYSICAL EXAM Blood pressure 134/80, pulse 78, height 185.4 cm (6' 1 ), weight 102.1 kg (225 lb), SpO2 96 %. Body mass index is 29.69 kg/m??. Physical Exam Vitals reviewed. HENT: Head: [...] Moderate but no evidence of failure 4. manager long term care current use of 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 No bleeding [...] sooner as clinically indicated Jayro Kaminski MD, [facility] documented in this encounter Plan of Treatment Not on file documented as of this encounter Visit Diagnoses Diagnosis Ventricular premature beats- Primary Other premature beats RBBB Hypertensive left ventricular hypertrophy, without heart failure Atypical chest pain Other chest pain Abnormal stress ECG manager long term care current use of 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 QAMAR (obstructive sleep apnea) Obstructive sleep apnea (adult) (pediatric) documented in this encounter Discontinued Medications Medication Sig Discontinue Reason Start Date End Da te hydroCHLOROthiazide (MICROZIDE) 12.5 mg capsule Take 1 capsule (12.5 mg total) by mouth daily Therapy completed 05/24/2022 02/02/2023 diphenhydrAMINE (BENADRYL) 50 mg capsule Take 1 capsule (50 mg total) by mouth once for 1 dose Take 1 capsule 1 hour prior to procedure Therapy completed 09/07/2022 02/02/2023 predniSONE (DELTASONE) 50 mg tablet Take 1 tab 13 hrs prior to procedure, 1 tab 7 hrs prior to procedure, 1 tab 1 hr prior to procedure. Therapy completed 09/07/2022 02/02/2023 documented as of this encounter Orders Outpatient Referral Count Last Ordered Date Fir st Ordered Date AMB REFERRAL TO CARDIOLOGY 1 02/02/2023 documented in this encounter Care Teams Die Equipment Operator Relationship Specialty Start Date End Date Timothy Banks MD PCP - General 07/08/16 documented as of this encounter
--- OUTSIDE RECORDS SUMMARY | 2024-04-09 17:29 | XMS_ITS | Encounter Summary ---
Author Organization [facility] Healthcare Address [address] [place] [address] Care Team Providers Care Screen Roller Name Role Phone Timothy Banks MD Primary Care Provider [phone] Reason for Visit * Reason Comments Hospital Follow Up Encounter Details Date Type Department Care Team (Late st Contact Info) Description 01/23/2024 1:30 PM CDT Office Visit [facility] Medical Group Cardiology [address] [place] [address] Ritu Adame NP [address] [place] [address] PSVT (paroxysmal supraventricular tachycardia) (HCC) (Primary Dx); Hospital discharge follow-up Social History Tobacco Use Types Packs/Day Years Used Date Smoking Tobacco: Never Smokeless Tobacco: Never Alcohol Use Standard Drinks/Week Comments Yes 0 (1 standard drink = 0.6 oz pur e alcohol) Sex and Gender Information Value Date Recorded Sex Assigned at Not on file 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 Gender Identity Male 01/12/2020 7:43 PM CDT Sexual Orientation Straight 01/12/2020 7: 43 PM CDT documented as of this encounter Last Filed Vital Signs Vital Sign Reading Time Taken Comments Blood Pressure 122/78 01/23/2024 1:26 PM CDT Pulse 69 01/23/2024 1:26 PM CDT Temperature - - Respiratory Rate - - Oxygen Saturation 97% 01/23/2024 1:26 PM CDT Inhaled Oxygen Concentration - - Weight 99.8 kg (220 lb) 01/23/2024 1:26 PM CDT Height 185.4 cm (6' 1 ) 01/23/2024 1:26 PM CDT Body Mass Index 29.03 01/23/2024 1:26 PM CDT documented in this encounter Patient Instructions * Patient Instructions* Ritu Adame NP - 01/23/2024 1:[address] Alberto Ruvalcaba / [facility] [phone] documented in this encounter Ordered Prescriptions Prescription Sig Dispense Quantity Refills Last Filled Start Date End Date dilTIAZem CD 120 mg 24 hr capsule Take 1 capsule (120 mg total) by mouth daily 90 capsule 3 01/23/2024 documented in this encounter Progress Notes * Ritu Adame NP - 01/23/2024 1:30 PM CDT Images from the original note were not included. [facility] Medical Group Cardiology [address] [place] [address] Date of Visit: 01/23/2024 Patient ID: Russ Kern 1945 Chief Complaint Patient presents with Hospital Follow Up Russ Kern is a 78 y.o. male who is an established patient of Dr. Kaminski with a history of PVCs and SVT returning to the office for hospital follow-up after having diverticulitis and an episode ofSVT. History of Present Illness: Russ Kern is a 78 y.o. male with arrhythmia and PVCs. He was seen because of an upper respiratory tract infection and bronchitis by his primary care physician. Nurse practitioner noticed an irregular heartbeat an EKG showed right bundle branch block with PVCs. This led him to have an echocardiogram at [facility] which was normal except for moderate LVH. [...] have some swelling but he was recently paige trip were a little more salty food. 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 He [...] times but no sustained episodes since discharge. Medical History: Past Medical History: Diagnosis Date Cataract 2018 Chronic bronchitis (HCC) ? Chronic kidney disease 2009 GERD (gastroesophageal reflux disease) 1974 Heart disease 2016 HX OTHER MEDICAL recurrent DVT, gerd, s/p hiatal hernia [facility], ; Comments: [facility] 03/31/2016 - HX OTHER MEDICAL CKD; Comments: [facility] 03/31/2016 - Sleep apnea 2018 Past Surgical History: Procedure Laterality Date ANGIOPLASTY 2004 APPENDECTOMY 1995 CATARACT EXTRACTION 2017 CHOLECYSTECTOMY 1995 HERNIA REPAIR 1945/1946 Social History Tobacco Use Smoking Status Never Smokeless Tobacco Never Social History Tobacco Use Smoking status: Never Smokeless tobacco: Never Substance and Sexual Activity Drug use: No Sexual activity: Yes Partners: Female Comment: Spouse Alcohol Use: Not on file Family History Problem Relation Age of Onset Alzheimer's disease Mother Alzheimer's disease Father Alzheimer's disease Sister Alzheimer's disease Brother Review of Systems Constitutional: Negative for malaise/fatigue, weight gain and weight loss. Cardiovascular: Positive for palpitations. Negative for chest pain, dyspnea on exertion, leg swelling, near-syncope, orthopnea, paroxysmal nocturnal dyspnea and syncope. Respiratory: Negative for cough, shortness of breath and sleep disturbances due to breathing. Hematologic/Lymphatic: Negative for bleeding problem. Does not bruise/bleed easily. Vital Signs: BP 122/78 (BP Location: Left arm, Patient Position: Sitting) Pulse 69 Ht 185.4 cm (6' 1 ) Wt 99.8 kg (220 lb) SpO2 97% BMI 29.03 kg/m?? Physical Exam Constitutional: General: He is not in acute distress. Appearance: He is well-developed and overweight. Comments: Ambulates with a cane HENT: Head: Normocephalic and atraumatic. Eyes: General: No scleral icterus. Conjunctiva/sclera: Conjunctivae normal. Neck: Vascular: No JVD. Trachea: No tracheal deviation. Cardiovascular: Rate and Rhythm: Normal rate and regular rhythm. Heart sounds: Normal heart sounds. No murmur heard. Pulmonary: Effort: Pulmonary effort is normal. No respiratory distress. Breath sounds: Normal breath sounds. Skin: General: Skin is warm and dry. Neurological: Mental Status: He is alert and oriented to person, place, and time. Psychiatric: Mood and Affect: Mood normal. Behavior: Behavior normal. Allergies Allergen Reactions Iv Contrast Dye [Iodinated Contrast Media] Hives Current Outpatient Medications: albuterol HFA (PROAIR HFA) 90 mcg/actuation inhaler, inhale 2 puff by inhalation route every 4 - 6 hours as needed, Disp: 0 Inhaler, Rfl: 0 apixaban (ELIQUIS) 5 mg tablet, Take 1 tablet (5 mg total) by mouth 2 (two) times a day, Disp: 180 tablet, Rfl: 0 bimatoprost (LUMIGAN) 0.01 % ophthalmic drops, Administer [...] capsule, 0.8 mg., Disp: 0, Rfl: 0 hydrocortisone 2.5 % ointment, , Disp: , Rfl: lansoprazole (PREVACID) 30 mg capsule, Take 1 capsule (30 mg total) by mouth daily, Disp: , Rfl: dilTIAZem CD 120 mg 24 hr capsule, Take 1 capsule (120 mg total) by mouth daily, Disp: 90 capsule, Rfl: 3 Lab Results Component Value Date POTASSIUM 4.7 08/24/2023 BUNSER 16 08/24/2023 CREATININE 1.31 (H) 08/24/2023 Lab Results Component Value Date WBC 2.1 (L) 08/24/2023 HGB 13.3 (L) 08/24/2023 HCT 40.9 08/24/2023 MCV 88.0 08/24/2023 No results found for this or any previous visit (from the past 4 hour(s)). Lab Results Component Value Date POCCHOL 138 01/13/2020 POCHDL 34 01/13/2020 POCTRIG 119 01/13/2020 POCLDL 80 01/13/2020 POCNONHDL 104 01/13/2020 POCCHLPL 138 01/13/2020 Assessment: Diagnoses and all orders for this visit: PSVT (paroxysmal supraventricular tachycardia) (HCC) (Primary) Hospital discharge follow-up Other orders - dilTIAZem CD 120 mg 24 hr capsule; Take 1 capsule (120 mg total) by mouth daily Plan/Recommendations: Has a history of SVT and low frequency of ventricular ectopy. His most recent episode of SVT occurred in the setting of diverticulitis. I advised him to continue the diltiazem 120 mg daily. I recommend EP consultation for SVT and patient agrees to be referred. Keep the previously scheduled routine follow-up with Dr. Kaminski in 2 months. 01/23/2024 SANDY Garcia- Nurse Practitioner with [facility] Cardiology This note is dictated and transcribed using [employer] Direct Software. Claim Service Representative variancesmay occur. Despite proofreading, typographical errors may occur. documented in this encounter Plan of Treatment Not on file documented as of this encounter Visit Diagnoses Diagnosis PSVT (paroxysmal supraventricular tachycardia) (HCC)- Primary Paroxysmal supraventricular tachycardia Hospital discharge follow-up Other follow-up examination documented in this encounter Discontinued Medications Medication Sig Discontinue Reason Start Date End Da te LANSOPRAZOLE 3 MG/ML SUSP (PREVACID) Alternate therapy 08/25/2021 01/23/2024 furosemide (LASIX) 20 mg tabletIndications:Bilate ral lower extremity edema Take 1 tablet (20 mg total) by mouth daily as needed (swelling) Therapy completed 08/28/2018 01/23/2024 dilTIAZem CD 120 mg 24 hr capsule Take 1 capsule (120 mg total) by mouth daily Reorder 01/09/2024 01/23/2024 documented as of this encounter Historical Medications * This list may reflect changes made after this encounter. lansoprazole (PREVACID) 30 mg capsule Take 1 capsule (30 mg total) by mouth daily 12/13/2023 dilTIAZem CD 120 mg 24 hr capsule Take 1 capsule (120 mg total) by mouth daily 01/09/2024 01/23/2024 added in this encounter Care Teams Screen Roller Relationship Specialty Start Date End Date Timothy Banks MD PCP - General 07/08/16 documented as of this encounter
--- OUTSIDE RECORDS SUMMARY | 2024-04-09 17:29 | XMS_ITS | Encounter Summary ---
Author Organization [facility] Address [address] [place] [address] Phone Care Team Providers Care Gasoline Catalyst Operator Name Role Phone Timothy Banks MD Primary Care Provider [phone] Reason for Visit * Oncology (Routine) - Authorized Specialty Diagnoses / Procedures Referred By Contac t Referred To Contact Oncology Diagnoses 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) Procedures ONCBCN ARM DRAW APPT ONC LAB ONLY Hillary Gama MD [address] [place] [address] Phone: tel: fax: Hillary Gama MD [address] [address] Phone: tel: fax: Referral ID Status Reason Start Date Expiration Date Visits Requested Visits Authorized [id number] Authorized Specialty Services Required 04/10/2018 04/09/2024 99 99 Encounter Details Date Type Department Care Team (Late st Contact Info) Description 08/30/2022 9:00 AM CDT Lab [facility] Oncology [address] 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 Gender Identity Male 01/12/2020 7:43 PM CDT Sexual Orientation Straight 01/12/2020 7: 43 PM CDT documented as of this encounter Plan of Treatment Not on file documented as of this encounter Visit Diagnoses Diagnosis 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) long-term current use of 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 documented in this encounter Orders Appointment Requests Count Last Ordered Date Fi rst Ordered Date ONCBCN LAB APPOINTMENT 1 08/30/2022 documented in this encounter Care Teams Gasoline Catalyst Operator Relationship Specialty Start Date End Date Timothy Banks MD PCP - General 07/08/16 documented as of this encounter
--- OUTSIDE RECORDS SUMMARY | 2024-04-09 17:29 | XMS_ITS | Encounter Summary ---
Author Organization [facility] Healthcare Address [address] [place] [address] Care Team Providers Care Goodyear Welter Name Role Phone Timothy Banks MD Primary Care Provider [phone] Encounter Details Date Type Department Care Team (Late st Contact Info) Description 01/11/2024 Telephone [facility] Medical Group Cardiology [address] [place] [address] Jayro Kaminski MD [address] [id number] Social History Tobacco Use Types Packs/Day Years Used Date Smoking Tobacco: Never Smokeless Tobacco: Never Alcohol Use Standard Drinks/Week Comments Yes 0 (1 standard drink = 0.6 oz pur e alcohol) Sex and Gender Information Value Date Recorded Sex Assigned at Not on file 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 It was discussed while in the hospital possibly referring pt to EP and possibly a 30 day monitor. Pt scheduled for a hospital f/u with CT. * Telephone Encounter - Chato Risa - 01/11/2024 10:06 AM CDT Pt requesting referral to a specialist for his arrhythmia. Contact: documented in this encounter Plan of Treatment Not on file documented as of this encounter Visit Diagnoses Not on filedocumented in this encounter Care Teams Goodyear Welter Relationship Specialty Start Date End Date Timothy Banks MD PCP - General 07/08/16 documented as of this encounter
--- OUTSIDE RECORDS SUMMARY | 2024-04-09 17:29 | XMS_ITS | Encounter Summary ---
Author Organization [facility] Address [address] [place] [address] Care Team Providers Care Identification And Records Commander Name Role Phone Timothy Banks MD Primary Care Provider [phone] Reason for Referral * Diagnostic Imaging (Routine) - Closed Specialty Diagnoses / Procedures Referred By Contac t Referred To Contact Diagnoses Hypertensive left ventricular hypertrophy, without heart failure Atypical chest pain Procedures NM MPI SPECT (Rest and/or Stress) Multiple Studies Veena Malone MD [address] [place] [address] Phone: tel: fax: Referral ID Status Reason Start Date Expiration Date Visits Re quested Visits Authorized [id number] Closed 07/29/2022 08/28/2023 1 1 Reason for Visit * Reason Comments RBBB SVT 6 mo f/u Encounter Details Date Type Department Care Team (Latest Contact Info) Description 07/29/2022 11:30 AM CDT Office Visit [facility] Medical Group Cardiology [address] [place] [address] Veena Malone MD [address] 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 (Primary Dx); QAMAR (obstructive sleep apnea); RBBB; 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); Hypertensive left ventricular hypertrophy, without heart failure; Atypical chest pain Social History Tobacco Use Types Packs/Day Years Used Date Smoking Tobacco: Never Smokeless Tobacco: Never Tobacco Cessation:Counseling Given: Not Answered Alcohol Use Standard Drinks/Week Comments Yes 0 (1 standard drink = 0.6 oz pur e alcohol) Sex and Gender Information Value Date Recorded Sex Assigned at Not on file 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 Gender Identity Male 01/12/2020 7:43 PM CDT Sexual Orientation Straight 01/12/2020 7: 43 PM CDT documented as of this encounter Last Filed Vital Signs Vital Sign Reading Time Taken Comments Blood Pressure 120/68 07/29/2022 11:32 AM CDT Pulse 74 07/29/2022 11:32 AM CDT Temperature - - Respiratory Rate - - Oxygen Saturation 96% 07/29/2022 11:32 AM CDT Inhaled Oxygen Concentration - - Weight 100.7 kg (222 lb) 07/29/2022 11:32 AM CDT Height 185.4 cm (6' 1 ) 07/29/2022 11:32 AM CDT Body Mass Index 29.29 07/29/2022 11:32 AM CDT documented in this encounter Progress Notes * Veena Malone MD - 07/29/2022 11:30 AM CDT Images from the original note were not included. [facility] DATE OF VISIT: 07/29/2022 CHIEF COMPLAINT Chief Complaint Patient presents with ??? RBBB ??? SVT 6 mo f/u HPI Nadeem Amaya is a 76 y.o. male with arrhythmia and PVCs. He was seen because of an upper respiratory tract infection and bronchitis by his primary care physician. Nurse practitioner noticed an irregular heartbeat an EKG showed right bundle branch block with PVCs. This led him to have an echocardiogram at [facility] which was normal except for moderate [...] last visit from dietary and lifestyle modifications. MEDICAL HISTORY Past Medical History: Diagnosis Date ??? Cataract 2018 ??? Chronic bronchitis (HCC) ? Chronic kidney disease 2009 ??? GERD (gastroesophageal reflux disease) 1973 ??? Heart disease 2015 ??? HX OTHER MEDICAL recurrent DVT, gerd, s/p hiatal hernia [facility], [facility]; Comments: [facility] 03/31/2016 - ??? HX OTHER MEDICAL CKD; Comments: [facility] 03/31/2016 - ??? Sleep apnea 2017 Social History Tobacco Use ??? Smoking status: Never Smoker ??? Smokeless tobacco: Never Used Substance Use Topics ??? Alcohol use: Yes ??? Drug use: No Family History Problem Relation Age of Onset ??? Alzheimer's disease Mother ??? Alzheimer's disease Father ??? Alzheimer's disease Sister ??? Alzheimer's disease Brother MEDICATIONS Medication List Accurate as of July 29, 2022 12:06 PM. If you have any questions, ask [...] total) by mouth daily as needed (swelling) hydroCHLOROthiazide 12.5 mg capsule Commonly known as: MICROZIDE hydrocortisone 2.5 % ointment LANSOPRAZOLE 3 MG/ML [...] for environmental allergies. PHYSICAL EXAM Blood pressure 120/68, pulse 74, height 185.4 cm (6' 1 ), weight 100.7 kg (222 lb), SpO2 96 %. Body mass index is 29.29 kg/m??. Physical Exam Vitals reviewed. 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 Cardiac arrhythmia, unspecified cardiac arrhythmia type Low-frequency frequency ventricular ectopy. High frequency supraventricular ectopy and brief atrialruns. Asymptomatic however. 6. RBBB No evidence of higher degree block 7. SVT: No sustained symptoms 8. Obstructive sleep apnea: on CPAP 9. Atypical chest pain Cannot exclude ischemia PLAN/RECOMMENDATIONS Lexiscan myocardial perfusion study for ischemic evaluation given his atypical chest pain he can not walk on a treadmill bc of neuropathy. He currently ambulates with a cane He is doing well and is stable at this point. I recommend he continue his current cardiac regimen without change including Eliquis and follow-up in 6 months or sooner as clinically indicated Veena Malone MD, FACC documented in this encounter Plan of Treatment Not on file documented as of this encounter Results * NM MPI SPECT (Rest and/or Stress) Multiple Studies (09/07/2022 10:52 AM CDT) Anatomical Region Laterality Modality Body N/A Nuclear Medicine 09/07/2022 9:39 AM CDT Narrative 09/07/2022 12:47 PM CDT [facility] Cardiology [address], [place] [address] [address], [place] [address] P:[phone] P:[phone] MPI Imaging Report Patient Name: NADEEM AMAYA W : 1945 Study Date: 09/07/2022 9:39:10 AM Gender: M Tech: [facility] Location: [place] Ref.Provider: VEENA MALONE Height(Cm): 185.4 BSA: Weight(Kg): [...] complete. Resting ECG: Normal sinus rhythm, RBBB, careers adviser -IMI, TWI - consider inferior ischemia, frequent [...] Procedure Note Veena Malone MD - 09/07/2022 [facility] Cardiology [address] [address] [address], [place] [address] P:[phone] P:[phone] MPI Imaging Report Patient Name: NADEEM AMAYA WPatient ID: [id number] : [id number] Date: 09/07/2022 9:39:10 AM Gender: MAccession #: [id number] Tech: [place] WAYMTLocation: [place] Ref.Provider: VEENA MALONEHeight(Cm): 185.4 BSA: Weight(Kg): 98.4 BMI: 28.63Order Provider: [...] complete. Resting ECG: Normal sinus rhythm, RBBB, careers adviser -IMI, TWI - consider inferior ischemia,frequent PACs. 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 hydroCHLOROthiazi de (MICROZIDE) 12.5 mg capsule Take 1 capsule (12.5 mg total) by mouth daily 05/24/2022 02/02/2023 added in this encounter Care Teams Identification And Records Commander Relationship Specialty Start Date End Date Timothy Banks MD PCP - General 07/08/16 documented as of this encounter
--- OUTSIDE RECORDS SUMMARY | 2024-04-09 17:29 | XMS_ITS | Encounter Summary ---
Author Organization [facility] Address [address] [place] [address] Phone Care Team Providers Care Core Fitter Name Role Phone Timothy Banks MD Primary Care Provider [phone] Encounter Details Date Type Department Care Team (Late st Contact Info) Description 01/31/2024 Telephone [place] [id number] [facility] [address] [place] [address] Adilene Gonsalves RN Social History Tobacco Use Types Packs/Day Years Used Date Smoking Tobacco: Never Smokeless Tobacco: Never Alcohol Use Standard Drinks/Week Comments Yes 0 (1 standard drink = 0.6 oz pur e alcohol) Sex and Gender Information Value Date Recorded Sex Assigned at Not on file 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 Patient previous portal message was requesting sooner appointment. Called to inquire more information regarding the request for a sooner appointment. Provided contact information for a return phone call. documented in this encounter Plan of Treatment Not on file documented as of this encounter Visit Diagnoses Not on filedocumented in this encounter Care Teams Core Fitter Relationship Specialty Start Date End Date Timothy Banks MD PCP - General 07/08/16 documented as of this encounter
--- OUTSIDE RECORDS SUMMARY | 2024-04-09 17:29 | XMS_ITS | Encounter Summary ---
Author Organization [facility] Address [address] [place] [address] Phone Care Team Providers Care Wireless Architect Name Role Phone Timohty Banks MD Primary Care Provider + [phone] Encounter Details Date Type Department Care Team (Late st Contact Info) Description 02/02/2024 Telephone [facility] Cardiology [facility] 8th [place] [address] [place] [address] Sally Wisdom Social History Tobacco Use Types Packs/Day Years Used Date Smoking Tobacco: Never Smokeless Tobacco: Never Alcohol Use Standard Drinks/Week Comments Yes 0 (1 standard drink = 0.6 oz pur e alcohol) Sex and Gender Information Value Date Recorded Sex Assigned at Not on file 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 Gallegos * Telephone Encounter - Sally Wisdom - 02/02/2024 8:46 AM CDT Diagnosis/Reason for Appointment: SVT Referring Physician: Dr. Adame Ref If Referring MD is not PCP, list specialty: Triage Questions Yes No Who/Where/When/Notes Have you ever been diagnosed with cancer, or undergone cancer treatments? [] [x] If 'Yes', Schedulefirst available with Cardio-Oncology If yes where were you treated? Have you ever seen a Friend Of The Court in an office setting? [x] [] Dr. Kaminski IF SCHEDULING PATIENT WITH MATERNAL Have you had a baby in the last year or are you ? (If yes send to Dr. Mullen for review) [] [] Have you had heart or blood pressure problems during a previous ? (If yes send to Dr. Mullen for review) [] [] Dr. Sana Nunes Patients only: Are you a hemodialysis or peritoneal dialysis patient? (If yes then patient must be referred from another MD, DO NOT SCHEDULE) [] [] Do you regularly exercise, or play any competitive or recreational sports? (If yes proceed to next question) [] [] Are your symptoms or concerns associated with this exercise or activity? (If yes schedule in [facility]) [] [] Patient History Questions Yes No Where/When/Notes Have you EVER been hospitalized for ANY cardiac issue? [] [x] Have you ever had any cardiac testing, imaging, or procedures? (Testing - echo, EKG, stress) (Imaging - Cardiac MRI, CT or calcium scoring) (Procedure - Ablation, Cardioversion, CABG, Cath) [x] [] Echo, EKG, cath 09/2022 [place], [place] Have you ever had a sleep study? [x] [] Do you have a device? If yes what type? (Pacemaker, Defibrillator, Implanted Loop Recorder) [] [x] If yes, where and when was device put in? Imaging Specialist? ([employer], [employer], [employer]) Appointment Date: Provider: Location: [] Confirm appt date, time, provider and location. [] Advise pt to arrive 15-20 min early. [] Advise patient to bring medications/list, photo ID and insurance card [] Advise of New Patient Packet being mailed to them. documented in this encounter Plan of Treatment Not on file documented as of this encounter Visit Diagnoses Not on filedocumented in this encounter Care Teams Wireless Architect Relationship Specialty Start Date End Date Timothy Banks MD PCP - General 07/08/16 documented as of this encounter
--- OUTSIDE RECORDS SUMMARY | 2024-04-09 17:29 | XMS_ITS | Encounter Summary ---
Author Organization [facility] Address [address] [facility] [address] [place] [address] Phone Care Team Providers Care Gutter Mouth Cutter Name Role Phone Timothy Banks MD Primary Care Provider + [phone] Reason for Visit * Oncology (Routine) - Authorized Specialty Diagnoses / Procedures Referred By Contshakila t Referred To Contact Oncology Diagnoses 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) Hillary Gama MD [address] [place] [address] Phone: tel: fax: Hillary Gama MD [address] [address] Phone: tel: fax: Referral ID Status Reason Start Date Expiration Date Visits Requested Visits Authorized [id number] Authorized Specialty Services Required 04/10/2017 04/09/2024 99 99 Encounter Details Date Type Department Care Team (Latest Contact Info) Description 08/24/2023 10:00 AM CDT Office Visit [facility] Hematology [address] [facility] 7th [place] [address] [place] [id number] Hillary Gama MD [address] [place] [address] Neutropenia, unspecified type (HCC) (Primary Dx); 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); [facility] current use of 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 Social History Tobacco Use Types Packs/Day Years Used Date Smoking Tobacco: Never Smokeless Tobacco: Never Alcohol Use Standard Drinks/Week Comments Yes 0 (1 standard drink = 0.6 oz pur e alcohol) Sex and Gender Information Value Date Recorded Sex Assigned at Not on file Legal Sex Male 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 Gender Identity Male 01/12/2020 7:43 PM CDT Sexual Orientation Straight 01/12/2020 7: 43 PM CDT documented as of this encounter Last Filed Vital Signs Vital Sign Reading Time Taken Comments Blood Pressure 131/79 08/24/2023 9:29 AM CDT Pulse 84 08/24/2023 9:29 AM CDT Temperature 36.3 ??C (97.4 ??F) 08/24/2023 9:29 AM CD T Respiratory Rate 18 08/24/2023 9:29 AM CDT Oxygen Saturation 96% 08/24/2023 9:29 AM CDT Inhaled Oxygen Concentration - - Weight 100.7 kg (222 lb) 08/24/2023 9:29 AM CDT Height - - Body Mass Index 29.29 08/11/2023 9:19 AM CDT documented in this encounter Progress Notes * Brittany Lerner, JOSÉ MIGUEL - 08/24/2023 10:00 AM CDT PATIENT NAME: Russ Kern : 1945 DATE OF SERVICE: 08/24/2023 Diagnosis: Recurrent thromboembolic disease. Current Treatment: 1. 2004, DVT/PE following hiatal repair status post [place] filter placement. Warfarin started for 6 months. [...] his trip. HPI: Mr. Kern is a 77 year old male who presents for follow [...] tendon injury in his right foot. His contact lens flashing puncher recommended a brace. Their sons surprised them in [place]. They are going to [place] this summer. ALLERGIES: Allergies Allergen Reactions Iv Contrast Dye [Iodinated Contrast Media] Hives CURRENT MEDICATION: Current Outpatient Medications: albuterol HFA [...] needed (swelling), Disp: 30 tablet, Rfl: 1 hydrocortisone 2.5 % ointment, , Disp: , Rfl: LANSOPRAZOLE 3 MG/ML SUSP (PREVACID), , Disp: , Rfl: HISTORY Social History Tobacco Use Smoking status: Never Smokeless tobacco: Never Substance and Sexual Activity Drug use: No Sexual activity: Yes Partners: Female Comment: Spouse Alcohol Use: Not on file VITALS: Vitals BP 131/79 (BP Location: Left arm) Pulse 84 Temp 36.3 ??C (97.4 ??F) (Transdermal) Resp 18 Wt 100.7 kg (222 lb) SpO2 96% BMI 29.29 kg/m?? PHYSICAL EXAM: Physical Exam Vitals reviewed. Constitutional: Appearance: Normal appearance. HENT: Head: Normocephalic and atraumatic. Mouth/Throat: Mouth: Mucous membranes are moist. Pharynx: Oropharynx is clear. Eyes: Conjunctiva/sclera: Conjunctivae normal. Pupils: Pupils are equal, round, and reactive to light. Cardiovascular: Rate and Rhythm: Normal rate and regular rhythm. Heart sounds: Normal heart sounds. Musculoskeletal: General: Normal range of motion. Cervical back: Normal range of motion and neck supple. Skin: General: Skin is warm. Neurological: General: No focal deficit present. Mental Status: He is alert and oriented to person, place, and time. Psychiatric: Mood and Affect: Mood normal. Behavior: Behavior normal. LABORATORY DATA: Hospital Outpatient Visit on 08/24/2023 Component Date Value Ref Range Status Sodium 08/24/2023 144 135 - 145 mmol/L Final Potassium, pl 08/24/2023 4.7 3.3 - 4.9 mmol/L Final Chloride 08/24/2023 107 97 - 110 mmol/L Final CO2 08/24/2023 27 22 - 32 mmol/L Final Anion gap 08/24/2023 10 2 - 15 mmol/L Final BUN 08/24/2023 16 6 - 25 mg/dL Final Creatinine 08/24/2023 1.31 (H) 0.80 - 1.30 mg/dL Final Glucose 08/24/2023 83 70 - 199 mg/dL Final Calcium 08/24/2023 9.5 8.5 - 10.3 mg/dL Final Retics, absolute 08/24/2023 0.038 0.020 - 0.087 M/cumm Final Retics 08/24/2023 0.82 0.50 - 1.80 % Final WBC 08/24/2023 2.1 (L) 3.8 - 9.8 K/cumm Final Hgb 08/24/2023 13.3 (L) 13.8 - 17.2 g/dL Final Hct 08/24/2023 40.9 40.7 - 50.3 % Final Plt 08/24/2023 224 140 - 440 K/cumm Final MPV 08/24/2023 10.4 6.8 - 10.4 fL Final RBC 08/24/2023 4.65 4.50 - 5.70 M/cumm Final MCV 08/24/2023 88.0 80.0 - 97.6 fL Final MCH 08/24/2023 28.6 26.7 - 33.7 pg Final MCHC 08/24/2023 32.5 (L) 32.7 - 35.5 g/dL Final RDW CV 08/24/2023 19.9 (H) 11.8 - 14.6 % Final NRBC abs 08/24/2023 0.00 0.00 - 0.01 K/cumm Final Neutrophil abs 08/24/2023 0.6 (L) 1.5 - 6.6 K/cumm Final Lymphocyte abs 08/24/2023 1.1 (L) 1.2 - 3.3 K/cumm Final Monocyte abs 08/24/2023 0.3 0.2 - 1.2 K/cumm Final Eosinophil abs 08/24/2023 0.1 0.0 - 0.5 K/cumm Final Basophil abs 08/24/2023 0.0 0.0 - 0.2 K/cumm Final Neutrophil pct 08/24/2023 26.4 % Final Lymphocyte pct 08/24/2023 54.0 % Final Monocyte pct 08/24/2023 14.6 % Final Eosinophil pct 08/24/2023 3.7 % Final Basophil pct 08/24/2023 1.3 % Final eGFR 08/24/2023 56 (L) >=60 mL/min/1.73 m2 Final ASSESSMENT AND PLAN: Patient Active Problem List Diagnosis 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 Thromboembolic disease. Mr. Kern is a 77 year old male with history of thromboembolic disease initially diagnosed in 2004 and managed with indefinite anticoagulation. He has [...] for any future surgeries or procedures. We also discussed compression socks with travel. 2. Anemia. He does have a mild anemia likely as a result of mild renal insufficiency. This has beenstable. 3. Neutropenia. He has had a neutropenia on two occasions that has worsened today with ANC 600. He denies issues with recurrent infections or fevers. He denies cold sores. I will have him repeat thisin a month with additional neutropenia work up. DISPOSITION: The patient will return follow up in 6 months. They know to contact our office with any questions or concerns prior to the next follow up appointment. Brittany Lerner NP documented in this encounter Plan of Treatment Not on file documented as of this encounter Procedures Procedure Name Priority Date/Time Associated Diagnosis Comments MARLINE QUALITATIVE WITH REFLEX TO MARLINE QUANTITATIVE Routine 09/20/2023 9:47 AM CDT Neutropenia, unspecified type (HCC) COPPER, SERUM Routine 09/20/2023 9:47 AM CDT Neutropenia, unspecified type (HCC) RHEUMATOID FACTOR Routine 09/20/2023 9:4 7 AM CDT Neutropenia, unspecified type (HCC) HOMOCYSTEINE Routine 09/20/2023 9:47 AM CDT Neutropenia, unspecified type (HCC) VITAMIN B12 Routine 09/20/2023 9:47 AM CDT Neutropenia, unspecified type (HCC) documented in this encounter Results * Vitamin B12 (09/20/2023 9:47 AM CDT) Vitamin B12 816 232 - 1,245 pg/mL [facility] - 01 Blood 09/20/2023 9:47 AM CDT 09/20/2023 Narrative [facility] - 09/21/2023 7:12 AM CDT Performed at: ??01 - [facility] [address] ??[id number] Radio Broadcaster: Francisco Javier Stewart PhD, Phone: ??[phone] us Brittany Lerner NP LAB BLOOD ORDERABLES Final Result [facility] - 01 * Rheumatoid factor (09/20/2023 9:47 AM CDT) RA Latex Turbid. <10.0 <14.0 IU/mL [facility] - 01 Blood 09/20/2023 9:47 AM CDT 09/20/2023 Narrative [facility] - 09/21/2023 7:12 AM CDT Performed at: ??01 - [facility] ??[id number] Radio Broadcaster: Francisco Javier Stewart PhD, Phone: ??[phone] Brittany Lerner SERVICE DEVELOPER LAB BLOOD ORDERABLES Final Result Performing Organization Address [facility] Co de Phone Number [facility] - 01 * Homocysteine (09/20/2023 9:47 AM CDT) Pathologist [facility] Homocysteine 14.9 0.0 - 19.2 umol/L [facility] - 01 Blood 09/20/2023 9:47 AM CDT 09/20/2023 Narrative [facility] - 09/21/2023 7:12 AM CDT Performed at: ??01 - [facility] ??[id number] Radio Broadcaster: Francisco Javier Stewart PhD, Phone: ??[phone] Brittany Lerner SERVICE DEVELOPER LAB BLOOD ORDERABLES Final Result Performing Organization Address [facility] de Phone Number [facility] - 01 * Copper, serum (09/20/2023 9:47 AM CDT) [facility] Copper, Serum 75 69 - 132 ug/dL [facility] - 01 Comment:Detection Limit = 5 Blood 09/20/2023 9:47 AM CDT 09/20/2023 Narrative [facility] - 09/22/2023 3:09 PM CDT Test(s) [id number], Serum or Plasma was developed and its performance characteristics determined by [facility]. It has not been cleared or approved by the Food and Drug Administration. Performed at: ??01 - [facility] ??[id number] Radio Broadcaster: Irwin Sawyer MD, Phone: ??[phone] Brittany Lerner SERVICE DEVELOPER LAB BLOOD ORDERABLES Final Result [facility] - 01 * MARLINE ab ql w/rflx to MARLINE qn (09/20/2023 9:47 AM CDT) MARLINE, direct Negative Negative [facility] - 01 Blood 09/20/2023 9:47 AM CDT 09/20/2023 Narrative [facility] - 09/21/2023 1:09 PM CDT Performed at: ??01 - [facility] [address] ??[id number] Radio Broadcaster: Francisco Javier Stewart PhD, Phone: ??[phone] Brittany Lerner SERVICE DEVELOPER LAB BLOOD ORDERABLES Final Result Performing Organization Address City[facility]/ZIP Co de Phone Number [facility] - documented in this encounter Visit Diagnoses Diagnosis Neutropenia, unspecified type (HCC)- Primary 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) 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
--- OUTSIDE RECORDS SUMMARY | 2024-04-09 17:29 | XMS_ITS | Encounter Summary ---
Author Organization [facility] Address [address] [place] [address] Phone Care Team Providers Care Sand Polisher Name Role Phone Timothy Banks MD Primary Care Provider + [phone] Reason for Visit * Oncology (Routine) - Authorized Specialty Diagnoses / Procedures Referred By Contac t Referred To Contact Oncology Diagnoses 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) Procedures ONCBCN ARM DRAW APPT ONC LAB ONLY Hillary Gama MD [address] [place] [address] Phone: tel: fax: Hillary Gama MD [address] [address] Phone: tel: fax: Referral ID Status Reason Start Date Expiration Date Visits Requested Visits Authorized [id number] Authorized Specialty Services Required 04/10/2018 04/09/2024 99 99 Encounter Details Date Type Department Care Team (Late st Contact Info) Description 08/31/2021 10:00 AM CDT Lab [facility] Oncology [address] [facility] 7th [place] [address] [place] [address] 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); [facility] current use of 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 Social History Tobacco Use Types Packs/Day Years Used Date Smoking Tobacco: Never Smokeless Tobacco: Never Alcohol Use Standard Drinks/Week Comments Yes 0 (1 standard drink = 0.6 oz pur e alcohol) Sex and Gender Information Value Date Recorded Sex Assigned at Not on file Legal Sex 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
--- OUTSIDE RECORDS SUMMARY | 2024-04-09 17:29 | XMS_ITS | Encounter Summary ---
Author Organization [facility] Address [address] [facility] [address] [place] [address] Care Team Providers Care Weathercaster Name Role Phone Timothy Banks MD Primary Care Provider [phone] Reason for Referral * Procedure (Routine) - Closed Specialty Diagnoses / Procedures Referred By Contac t Referred To Contact Cardiology Diagnoses RBBB Hypertensive left ventricular hypertrophy, without heart failure Atypical chest pain Abnormal stress ECG Reggie Jackson MD [address] [facility] [address] [place] [address] Phone: tel: fax: [facility] Cardiology [address] [facility] [address] [place] [address] Phone: tel: fax: Referral ID Status Reason Start Date Expiration Date V isits Requested Visits Authorized [id number] Closed Specialty Services Required 09/09/2022 03/08/2023 1 1 Question Answer Please select the performing region: [facility] [[id number]] Please select the performing department: [facility] CARD CH MRYVL [[id number]] # of visits: 1 Comments PROCEDURE/TEST ORDERED:[facility] LOCATION: DATE OF SERVICE: 10/07 INSURANCE: [employer] Medicare DIAGNOSIS: abn stress ORDERING PROVIDER: Manuel ADDITIONAL DETAILS: Encounter Details Date Type Department Care Team (Late st Contact Info) Description 09/07/2022 Telephone [facility] Cardiology [address] [facility] [address] [place] [phone] Jayro Kaminski MD [address] 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 3 tablet 09/07/2022 3 documented in this encounter Miscellaneous Notes * Addendum Note - Atul Sloan RN - 09/07/2022 5:09 PM CDTAddended by: ATUL SLOAN on: 09/07/2022 05:09 PM Modules accepted: Orders * Addendum Note - Atul Sloan RN - 09/07/2022 5:04 PM CDTAddended by: ATUL SLOAN on: 09/07/2022 05:04 PM Modules accepted: Orders * Telephone Encounter - Atul Sloan RN - 09/07/2022 4:59 PM CDT Spoke with pt and his , reviewed message from [facility] and he verbalized understanding. Pt has a 2 week trip scheduled to [facility] in a week-[facility] is aware and said pt can schedule his procedure when he returns. Scheduled pt for LHC with RENÉF on 10/07 at 1030-reviewed and mailed instructions. Pt will holdeliquis 2 days prior and pre meds sent in to pharm for pt past history of contrast allergy-pt and verbalized understanding. * Telephone Encounter - Atul Sloan RN - 09/07/2022 1:46 PM CDT ----- Message from Jayro Kaminski MD sent at 09/07/2022 1:17 PM CDT ----- Does have some ischemia. Recommend coronary angiogram. Notice: He is on anticoagulation Normal heart function LM on VM reviewing message from [facility] and requested callback to schedule LHC. Informed pt I have dates available all days the week of 09/19. documented in this encounter Plan of Treatment Scheduled Referrals Name Type Priority Associated Diagnoses Orde r Schedule Ambulatory referral to Cardiology Outpatient Referral Routine RBBB Hypertensive left ventricular hypertrophy, without heart failure Atypical chest pain Abnormal stress ECG Expected: 09/21/2022 (Approximate), Expires: 09/08/2023 documented as of this encounter Visit Diagnoses Diagnosis RBBB- Primary Hypertensive left ventricular hypertrophy, without heart failure Atypical chest pain Other chest pain Abnormal stress ECG documented in this encounter Care Teams Weathercaster Relationship Specialty Start Date End Date Timothy Banks MD PCP - General 07/08/16 documented as of this encounter
--- OUTSIDE RECORDS SUMMARY | 2024-04-09 17:29 | XMS_ITS | Encounter Summary ---
Author Organization [facility] Address [address] [facility] [address] [place] [address] Phone Care Team Providers Care Compliance Reviewer Name Role Phone Timothy Banks MD Primary Care Provider + [phone] Reason for Visit * Oncology (Routine) - Authorized Specialty Diagnoses / Procedures Referred By Contshakila t Referred To Contact Oncology Diagnoses 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) Hillary Gama MD [address] [place] [address] Phone: tel: fax: Hillary Gama MD [address] [address] Phone: tel: fax: Referral ID Status Reason Start Date Expiration Date Visits Requested Visits Authorized [id number] Authorized Specialty Services Required 04/10/2017 04/09/[phone] Encounter Details Date Type Department Care Team (Latest Contact Info) Description 08/31/2021 10:45 AM CDT Office Visit [facility] [address] [facility] 7th [place] [address] [place] [address] Hillary Gama MD [address] [place] [address] 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) (Primary Dx); long-term current use of 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 Social History Tobacco Use Types Packs/Day Years Used Date Smoking Tobacco: Never Smokeless Tobacco: Never Alcohol Use Standard Drinks/Week Comments Yes 0 (1 standard drink = 0.6 oz pur e alcohol) Sex and Gender Information Value Date Recorded Sex Assigned at Not on file Legal Sex Male 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 Gender Identity Male 01/12/2020 7:43 PM CDT Sexual Orientation Straight 01/12/2020 7: 43 PM CDT documented as of this encounter Last Filed Vital Signs Vital Sign Reading Time Taken Comments Blood Pressure 120/74 08/31/2021 10:35 AM CDT Pulse 74 08/31/2021 10:35 AM CDT Temperature 36.3 ??C (97.3 ??F) 08/31/2021 1 0:35 AM CDT Respiratory Rate 16 08/31/2021 10:3 5 AM CDT Oxygen Saturation 97% 08/31/2021 10: 35 AM CDT Inhaled Oxygen Concentration - - Weight 117.2 kg (258 lb 6.4 oz) 022 10:35 AM CDT Height - - Body Mass Index 34.09 08/03/2021 10:13 AM CDT documented in this encounter Progress Notes * Brittany Lerner, JOSÉ MIGUEL - 08/31/2021 10:45 AM CDT PATIENT NAME: Russ Kern : 1945 DATE OF SERVICE: 08/31/2021 Diagnosis: Recurrent thromboembolic disease ?? Current Treatment: 1.?2005, DVT/PE following hiatal repair status post Freeport filter placement. ??Warfarin started for 6 months. ??2.?2005, right lower extremity DVT after warfarin discontinuation. ??Warfarin restarted. ??3.?2011, left lower extremity DVT occurred after re-initiation of warfarin after holding 5 days for colonoscopy. ??4.?2017, right lower extremity DVT occurred following re-initiation of warfarin after holding for a small bowel obstruction. 5. Currently on Eliquis 5mg BID. ?? HPI: Mr. Kern is a 75 year old male who presents??for follow up??of recurrent thromboembolic disease. ??To review, Mr. Kern??states he initially developed a left lower extremity DVT and pulmonary embolismin 2004 following hiatal hernia repair. ??This required a Freeport filter placement, as well as groin venous stenting. ??The patient was then placed on warfarin for 6 months, at which time, it was discontinued. ??He then developed a recurrent right lower extremity DVT in 2005 after discontinuation of warfarin. ??At this time, warfarin was restarted. ??Then, the patient developed a left lower extremity DVT in 2011 after he was off warfarin for 5 days to undergo a colonoscopy. ??He reports that, after being off of warfarin for 5 days, he restarted warfarin without a bridge. ??Shortly after restarting warfarin, he developed a left lower extremity DVT. ??The patient then reports, in 2017, he developed a small bowel obstruction believed to be secondary to viral gastroenteritis. ??As such, herequired NG tube placement and was NPO.?He received Lovenox while in the hospital. ??He was not discharged with a Lovenox bridge and was instructed to restart warfarin upon returning home. ??The patient states that, approximately 1 to 2 days after restarting warfarin, he then noticed a right lower extremity pain and was found to have a recurrent clot in the right lower extremity.?He??reporte d??compliance with warfarin and that his INR was??generally in the therapeutic range??however following his initial??visit with hematology in August??2017, it was deemed reasonable to switch him to Eliquis BID, as he would not require further monitoring and would not have dietary restrictions.? He has done well with this since that time without evidence of bleeding or recurrent clots. He denies any significant changes to his health since he was last here. ??He feels good with no complaints.??He denies any increase in swelling or erythema. ??He denies bleeding. ??He does have mild swelling and uses compression stockings on occasion. His is having surgery on her finger today and so he is going over to be with her after his appointment. Marlenaquis is going well, no issues with bleeding. No hospitalizations. Some leg swelling if on his feet a lot. For the last 5 weeks has been using a treadmill and upper body lifting and strengthening. End september for anniversary going to [facility] ALLERGIES: No Known Allergies CURRENT MEDICATION: Current Outpatient Medications: ??? albuterol HFA (PROAIR HFA) 90 mcg/actuation inhaler, inhale 2 puff by inhalation route every 4 - 6 hours as needed, Disp: 0 Inhaler, Rfl: 0 ??? bimatoprost (LUMIGAN) 0.01 % ophthalmic drops, Administer 1 drop into both eyes nightly , Disp:, Rfl: ??? budesonide-formoterol (SYMBICORT) 160-4.5 mcg/actuation inhaler, inhale 2 puff by inhalation route every day in the morning and evening, Disp: 0 Inhaler, Rfl: 0 ??? cholecalciferol (VITAMIN D3) 1,000 unit capsule, take 1 by Oral route every day, Disp: 0, Rfl: 0 ??? folic acid 0.8 mg capsule, 0.8 mg., Disp: 0, Rfl: 0 ??? furosemide (LASIX) 20 mg tablet, Take 1 tablet (20 mg total) by mouth daily as needed (swelling), Disp: 30 tablet, Rfl: 1 ??? hydrocortisone 2.5 % ointment, , Disp: , Rfl: ??? LANSOPRAZOLE 3 MG/ML SUSP (PREVACID), , Disp: , Rfl: ??? multivitamin tablet, , Disp: , Rfl: ??? dexlansoprazole (DEXILANT) 60 mg capsule, take 1 capsule by oral route every day for 8 weeks, Disp: 0, Rfl: 0 ??? Eliquis 5 mg tablet, TAKE 1 TABLET BY MOUTH TWICE DAILY (Patient not taking: Reported on 08/31/2021), Disp: 180 tablet, Rfl: 3 HISTORY Social History Socioeconomic History ??? Marital status: Spouse name: Not on file ??? Number of children: Not on file ??? Years of education: Not on file ??? Highest education level: Not on file Occupational History ??? Not on file Tobacco Use ??? Smoking status: Never Smoker ??? Smokeless tobacco: Never Used Substance and Sexual Activity ??? Alcohol use: Yes ??? Drug use: No ??? Sexual activity: Yes Partners: Female Comment: Spouse Other Topics Concern ??? Not on file Social History Narrative ??? Not on file Social Determinants of Health Financial Resource Strain: Not on file Food Insecurity: Not on file Transportation Needs: Not on file Physical Activity: Not on file Stress: Not on file Social Connections: Not on file Intimate Partner Violence: Not on file Housing Stability: Not on file VITALS: Vitals BP 120/74 (BP Location: Left arm) Pulse 74 Temp 36.3 ??C (97.3 ??F) (Transdermal) Resp 16 Wt 117.2 kg (258 lb 6.4 oz) SpO2 97% BMI 34.09 kg/m?? PHYSICAL EXAM: Physical Exam Vitals reviewed. [...] is normal. Breath sounds: Normal breath sounds. Musculoskeletal: General: Normal range of motion. Cervical back: Normal range of motion and neck supple. Skin: General: Skin is warm and dry. Neurological: General: No focal deficit present. Mental Status: He is alert and oriented to person, place, and time. LABORATORY DATA: Hospital Outpatient Visit on 08/31/2021 Component Date Value Ref Range Status ??? Retics, absolute 08/31/2021 0.051 0.020 - 0.087 M/cumm Final ??? Retics 08/31/2021 1.21 0.50 - 1.80 % Final ??? Sodium 08/31/2021 141 135 - 145 mmol/L Final ??? Potassium, pl 08/31/2021 4.8 3.3 - 4.9 mmol/L Final ??? Chloride 08/31/2021 104 97 - 110 mmol/L Final ??? CO2 08/31/2021 28 22 - 32 mmol/L Final ??? Anion gap 08/31/2021 9 2 - 15 mmol/L Final ??? BUN 08/31/2021 14 8 - 25 mg/dL Final ??? Creatinine 08/31/2021 1.43 (A) 0.80 - 1.30 mg/dL Final ??? Glucose 08/31/2021 86 70 - 199 mg/dL Final ??? Calcium 08/31/2021 9.5 8.5 - 10.3 mg/dL Final ??? WBC 08/31/2021 5.7 3.8 - 9.8 K/cumm Final ??? Hgb 08/31/2021 11.2 (A) 13.8 - 17.2 g/dL Final ??? Hct 08/31/2021 35.2 (A) 40.7 - 50.3 % Final ??? Plt 08/31/2021 299 140 - 440 K/cumm Final ??? MPV 08/31/2021 9.9 6.8 - 10.4 fL Final ??? RBC 08/31/2021 4.21 (A) 4.50 - 5.70 M/cumm Final ??? MCV 08/31/2021 83.8 80.0 - 97.6 fL Final ??? MCH 08/31/2021 26.5 (A) 26.7 - 33.7 pg Final ??? MCHC 08/31/2021 31.7 (A) 32.7 - 35.5 g/dL Final ??? RDW CV 08/31/2021 16.8 (A) 11.8 - 14.6 % Final ??? NRBC abs 08/31/2021 0.00 0.00 - 0.01 K/cumm Final ??? Neutrophil abs 08/31/2021 4.0 1.8 - 6.6 K/cumm Final ??? Lymphocyte abs 08/31/2021 0.8 (A) 1.2 - 3.3 K/cumm Final ??? Monocyte abs 08/31/2021 0.8 0.2 - 1.2 K/cumm Final ??? Eosinophil abs 08/31/2021 0.1 0.0 - 0.5 K/cumm Final ??? Basophil abs 08/31/2021 0.0 0.0 - 0.2 K/cumm Final ??? Neutrophil pct 08/31/2021 70.4 % Final ??? Lymphocyte pct 08/31/2021 13.3 % Final ??? Monocyte pct 08/31/2021 14.8 % Final ??? Eosinophil pct 08/31/2021 0.9 % Final ??? Basophil pct 08/31/2021 0.6 % Final ??? eGFR 08/31/2021 51 (A) 90 - 130 mL/min/1.73 m2 Final ASSESSMENT AND PLAN: Patient Active Problem List Diagnosis ??? Ventricular premature beats ??? long-term current use of 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 ??? RBBB ??? 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) ??? Hypertensive left ventricular hypertrophy ??? LVH (left ventricular hypertrophy) ??? Lightheadedness ??? Cardiac arrhythmia ??? Chronic renal insufficiency, stage III (moderate) (HCC) ??? Snoring ??? Hypersomnolence ??? Tiredness ??? Other fatigue ??? QAMAR (obstructive sleep apnea) ??? Bilateral lower extremity edema ??? History of COVID-19 1.?Thromboembolic disease.?Mr. Kern is a 75??year old male with history of thromboembolic disease initially diagnosed in 2004??and managed with indefinite anticoagulation. ??He has??had recurrent lower extremity DVTs and physical exam suggestive of chronic lower extremity DVTs. ??Nonetheless, per patient history, he appears to have had recurrent DVTs in the setting of warfarin discontinuation or following warfarin re-initiation without a bridge, likely due to initial procoagulant affects of warfarin. ??As such,??he transitioned to Eliquis following his last visit in August??2018??and has done well on 5mg BID. ??He did well with his colonoscopy previously with a Lovenox bridge and resumption of Eliquis after the procedure however reports last year he just held Eliquis 2 daysand did fine. ??We would consider this for any future surgeries or procedures. ??He knows to call, but does not have anything planned. He will otherwise continue Eliquis and return??to clinic in??12??months for continued evaluation, as he sees other specialists in the interim and has done very wellon Eliquis. DISPOSITION: The patient will return follow up in one year. They know to contact our office with any questions or concerns prior to the next follow up appointment. Brittany Lerner NP documented in this encounter Plan of Treatment Not on file documented as of this encounter Results * (ABNORMAL) Basic metabolic panel (08/30/2022 8:45 AM CDT) Sodium 140 135 - 145 mmol/L CERNER BJ Comment:Testing performed by : [facility], [address] [place] [phone] Potassium, pl 4.7 3.3 - 4.9 mmol/L CERNER BJ Comment:Testing performed by : [facility], [address] [place] [phone] Chloride 103 97 - 110 mmol/L CERNER BJ Comment:Testing performed by : [facility], [address] [place] [phone] CO2 30 22 - 32 mmol/L CERNER BJ Comment:Testing performed by : [facility], [address] [place] [phone] Anion gap 7 2 - 15 mmol/L CERNER BJ Comment:Testing performed by : [facility], [address] [place] [phone] BUN 21 8 - 25 mg/dL CERNER BJ Comment:Testing performed by : [facility], [address] [place] [phone] Creatinine 1.36(H) 0.80 - 1.30 mg/dL CERNER BJ Comment:Testing performed by : [facility], [address] [place] [phone] Glucose 96 70 - 199 mg/dL CERNER [facility] Comment: Interpretive Data Fasting glucose >/= 126 [...] was last revised 2022. Testing performed by: [facility], [address] [place] [phone] Calcium 10.0 8.5 - 10.3 mg/dL CERMELLO [facility] Comment:Testing performed by : [facility], [address] [place] [phone] Blood 08/30/2022 8:45 AM CDT 08/30/2022 8:49 AM CDT Brittany Lerner MARINE ENGINE MECHANIC LAB BLOOD ORDERABLES Final Result Performing Organization Address [facility] de Phone Number [facility] [place], [place] [id number] * Reticulocyte Count (08/30/2022 8:45 AM CDT) Pathologist [facility] Retics, absolute 0.038 0.020 - 0.087 M/cumm AIME [facility] Comment:Testing performed by : [facility], [address] [place] [phone] Retics 0.91 0.50 - 1.80 % AIME [facility] Comment:Testing performed by : [facility], [address] [place] [phone] Blood 08/30/2022 8:45 AM CDT 08/30/2022 8:49 AM CDT Brittany Lerner MARINE ENGINE MECHANIC LAB BLOOD ORDERABLES Final Result Performing Organization Address [facility] de Phone Number [facility] [place], [place] [id number] * (ABNORMAL) CBC with auto differential (08/30/2022 8:45 AM CDT) WBC 3.0(L) 3.8 - 9.8 K/cumm AIME [facility] Comment:Testing performed by : [facility], [address] [place] [phone] Hgb 11.7(L) 13.8 - 17.2 g/dL AIME [facility] Comment:Testing performed by : [facility], [address] [place] [phone] Hct 36.7(L) 40.7 - 50.3 % CERMELLO BJ Comment:Testing performed by : [facility], [address] [place], [place] [phone] Plt 310 140 - 440 K/cumm CERMELLO BJ Comment:Testing performed by : [facility], [address] [place], [place] [phone] MPV 9.8 6.8 - 10.4 fL CERMELLO BJ Comment:Testing performed by : [facility], [address] [place], [place] [phone] RBC 4.20(L) 4.50 - 5.70 M/cumm CERMELLO BJ Comment:Testing performed by : [place] [phone] MCV 87.4 80.0 - 97.6 fL CERMELLO BJ Comment:Testing performed by : [place] [phone] MCH 27.9 26.7 - 33.7 pg CERMELLO BJ Comment:Testing performed by : [facility], [address] [place], [place] [phone] MCHC 31.9(L) 32.7 - 35.5 g/dL CERMELLO BJ Comment:Testing performed by : [place] [phone] RDW CV 18.2(H) 11.8 - 14.6 % CERMELLO BJ Comment:Testing performed by : [address] [phone] NRBC abs 0.00 0.00 - 0.01 K/cumm AIME [facility] Comment:Testing performed by : [facility], [address] [place] [phone] Blood 08/30/2022 8:45 AM CDT 08/30/2022 8:49 AM CDT Brittany Lerner MARINE ENGINE MECHANIC LAB BLOOD ORDERABLES Final Result [facility] Department [place] [address] * Reticulocyte Count (08/31/2021 9:42 AM CDT) Pathologist [facility] Retics, absolute 0.051 0.020 - 0.087 M/cumm [facility]IME [facility] Comment:Testing performed by : [facility], [address] [place] [phone] Retics 1.21 0.50 - 1.80 % [facility] Comment:Testing performed by : [facility], [address] [place] [phone] Blood 08/31/2021 9:42 AM CDT 08/31/2021 9:46 AM CDT us Hillary Gama MD LAB BLOOD ORDERABLES Final Result AIME [facility] Department [place] [address] * (ABNORMAL) Basic metabolic panel (08/31/2021 9:42 AM CDT) [facility] Sodium 141 135 - 145 mmol/L AIME [facility] Comment:Testing performed by : [facility], [address] [place] [phone] Potassium, pl 4.8 3.3 - 4.9 mmol/L AIME [facility] Comment:Testing performed by : [facility], [address] [place] [phone] Chloride 104 97 - 110 mmol/L AIME [facility] Comment:Testing performed by : [facility], [address] [place] [phone] CO2 28 22 - 32 mmol/L [facility]IME [facility] Comment:Testing performed by : [facility], [address] [place] [phone] Anion gap 9 2 - 15 mmol/L [facility] Comment:Testing performed by : [facility], [address] [place] [phone] BUN 14 8 - 25 mg/dL [facility] Comment:Testing performed by : [facility], [address] [place] [phone] Creatinine 1.43(H) 0.80 - 1.30 mg/dL [facility] Comment:Testing performed by : [facility], [address] [place] [phone] Glucose 86 70 - 199 mg/dL [facility] Comment: Interpretive Data Fasting glucose >/= 126 [...] classification and Diagnosis of Diabetes Diabetes Care 2017;40 (Suppl. 1):S11. Current interpretive data was last revised 2017. Testing performed by: [facility], [address] [place] [phone] Calcium 9.5 8.5 - 10.3 mg/dL [facility] Comment:Testing performed by : [facility], [address] [place] [phone] Blood 08/31/2021 9:42 AM CDT 08/31/2021 9:46 AM CDT us Hillary Gama MD LAB BLOOD ORDERABLES Final Result [facility] Department [place] [address] * (ABNORMAL) CBC with auto differential (08/31/2021 9:42 AM CDT) WBC 5.7 3.8 - 9.8 K/cumm [facility] Comment:Testing performed by : [facility], [address] [place] [phone] Hgb 11.2(L) 13.8 - 17.2 g/dL [facility] Comment:Testing performed by : [address] [phone] Hct 35.2(L) 40.7 - 50.3 % [facility] Comment:Testing performed by : [facility], [address] [place], [place] [phone] Plt 299 140 - 440 K/cumm [facility]ER[facility]O [facility] Comment:Testing performed by : [facility], [address] [place], [place] [phone] MPV 9.9 6.8 - 10.4 fL [facility]ER[facility]O [facility] Comment:Testing performed by : [facility], [address] [place], [place] [id number] RBC 4.21(L) 4.50 - 5.70 M/cumm CERMELLO BJ Comment:Testing performed by : [facility], [address] [place], [place] [id number] MCV 83.8 80.0 - 97.6 fL [facility]IME [facility] Comment:Testing performed by : [facility], [address] [place], [place] [phone] MCH 26.5(L) 26.7 - 33.7 pg AIME [facility] Comment:Testing performed by : [facility], [address] [place] [phone] MCHC 31.7(L) 32.7 - 35.5 g/dL [facility]ER[facility] Comment:Testing performed by : [address] [phone] RDW CV 16.8(H) 11.8 - 14.6 % [facility] Comment:Testing performed by : [facility], [address] [place] [phone] NRBC abs 0.00 0.00 - 0.01 K/cumm [facility]IME [facility] Comment:Testing performed by : [facility], [address] [place] [phone] Blood 08/31/2021 9:42 AM CDT 08/31/2021 9:46 AM CDT us Hillary Gama MD LAB BLOOD ORDERABLES Final Result [facility] Department [place] [address] documented in this encounter Visit Diagnoses Diagnosis 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)- Primary long-term current use of 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 documented in this encounter Discontinued Medications Medication Sig Discontinue Reason Start Date End Da te dexlansoprazole (DEXILANT) 60 mg capsule take 1 capsule by oral route every day for 8 weeks 03/31/2016 09/01/2021 documented as of this encounter Historical Medications * This list may reflect changes made after this encounter. Medication Sig Dispense Quantity Refills Last Filled Start D ate End Date hydrocortisone 2.5 % ointment 07/22/2021 LANSOPRAZOLE 3 MG/ML SUSP (PREVACID) 08/25/2021 4 added in this encounter Orders Appointment Requests Count Last Ordered Date Fi rst Ordered Date ONCBCN CLINIC APPOINTMENT REQUEST 2 023 08/31/2021 ONCBCN LAB APPOINTMENT 1 08/30/2022 documented in this encounter Care Teams Compliance Reviewer Relationship Specialty Start Date End Date Timothy Banks MD PCP - General 07/08/16 documented as of this encounter
--- OUTSIDE RECORDS SUMMARY | 2024-04-09 17:29 | XMS_ITS | Encounter Summary ---
Author Organization [facility] Address [address] [place] [address] Phone Care Team Providers Care Sizing Machine Tender Name Role Phone Timothy Banks MD Primary Care Provider + [phone] Reason for Visit * Oncology (Routine) - Authorized Specialty Diagnoses / Procedures Referred By Contac t Referred To Contact Oncology Diagnoses 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) Procedures ONCBCN ARM DRAW APPT ONC LAB ONLY Hillary Gama MD [address] [place] [address] Phone: tel: fax: Hillary Gama MD [address] [address] Phone: tel: fax: Referral ID Status Reason Start Date Expiration Date Visits Requested Visits Authorized [id number] Authorized Specialty Services Required 04/10/2018 04/09/2024 99 [phone] Encounter Details Date Type Department Care Team (Late st Contact Info) Description 08/24/2023 9:15 AM CDT Lab [facility] Oncology [address] [facility] 7th [place] [address] [place] [phone] 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); [facility] current use of 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 Social History Tobacco Use Types Packs/Day Years Used Date Smoking Tobacco: Never Smokeless Tobacco: Never Alcohol Use Standard Drinks/Week Comments Yes 0 (1 standard drink = 0.6 oz pur e alcohol) Sex and Gender Information Value Date Recorded Sex Assigned at Not on file 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 Gender Identity Male 01/12/2020 7:43 PM CDT Sexual Orientation Straight 01/12/2020 7: 43 PM CDT documented as of this encounter Plan of Treatment Not on file documented as of this encounter Visit Diagnoses Diagnosis 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) [facility] current use of 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 documented in this encounter Orders Appointment Requests Count Last Ordered Date Fi rst Ordered Date ONCBCN LAB APPOINTMENT 1 08/24/2023 documented in this encounter Care Teams Sizing Machine Tender Relationship Specialty Start Date End Date Timothy Banks MD PCP - General 07/08/16 documented as of this encounter
--- OUTSIDE RECORDS SUMMARY | 2024-04-09 17:29 | XMS_ITS | Encounter Summary ---
Author Organization [facility] Address [address] [place] [address] Care Team Providers Care Garbage Worker Name Role Phone Timothy Banks MD Primary Care Provider [phone] Encounter Details Date Type Department Care Team (Late st Contact Info) Description 11/14/2022 Telephone [facility] Cardiology [address] [place] [address] Jayro Kaminski MD [facility] [place] [id number] Social History Tobacco Use Types Packs/Day Years Used Date Smoking Tobacco: Never Smokeless Tobacco: Never Alcohol Use Standard Drinks/Week Comments Yes 0 (1 standard drink = 0.6 oz pur e alcohol) Sex and Gender Information Value Date Recorded Sex Assigned at Not on file 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 * Telephone Encounter - Eve Sloan RN - 11/14/2022 12:10 PM CDT Spoke with pt, after he was exercising on Monday (30 min on treadmill and 25 min arm weight lifting at gym) he came home and was standing in the bathroom to urinate and then he passed out. Pt said he had a brief moment of lightheadedness and then landed on his buttocks-he did not hit his head. Ptsaid he has occasional (no more than once a week) lightheadedness at home that goes away on its own. Pt said he has lost 50 pounds in the last 18 months with diet and exercise. Pt went to see Dr. Roach this morning and his BP was 111/74-he advised him to stop his hydrochlorothiazide and to call [facility] to make him aware too. Pt said he doesn't check his BP at home but his has a cuff and will start c hecking it-advised him to check once a day about an hour or two after his medications and to keep alog. Will forward to [facility]. Please advise, thank you! * Telephone Encounter - Eve Sloan RN - 11/14/2022 11:52 AM CDT LM on requesting callback. * Telephone Encounter - Sarah Lao - 11/14/2022 10:03 AM CDT Pt reports on 11/12 he had exercised for about an hour and shortly after passed out. Requesting a call back to discuss. Contact:[phone] documented in this encounter Plan of Treatment Not on file documented as of this encounter Visit Diagnoses Not on filedocumented in this encounter Care Teams Garbage Worker Relationship Specialty Start Date End Date Timothy Banks MD PCP - General 07/08/16 documented as of this encounter
--- OUTSIDE RECORDS SUMMARY | 2024-04-09 17:29 | XMS_ITS | Encounter Summary ---
Author Organization [facility] Address [address] [place] [address] Care Team Providers Care Shell Worker Name Role Phone Timothy Banks MD Primary Care Provider [phone] Encounter Details Date Type Department Care Team (Latest Contact Info) Description 08/30/2022 11:14 AM CDT - 08/30/2022 11:59 PM CDT Hospital Encounter [facility] [address] [place] [phone] 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); USP current use of 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 Discharge Disposition: Discharge to home or self care Social History Tobacco Use Types Packs/Day Years Used Date Smoking Tobacco: Never Smokeless Tobacco: Never Alcohol Use Standard Drinks/Week Comments Yes 0 (1 standard drink = 0.6 oz pur e alcohol) Sex and Gender Information Value Date Recorded Sex Assigned at Not on file 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 Gender Identity Male 01/12/2020 7:43 PM CDT Sexual Orientation Straight 01/12/2020 7: 43 PM CDT documented as of this encounter Medications at Time of Discharge albuterol HFA (PROAIR HFA) 90 mcg/actuation inhaler inhale 2 puff by inhalation route every 4 - 6 hours as needed 0 Inhaler 0 03/31/2016 bimatoprost (LUMIGAN) 0.01 % ophthalmic drops Administer 1 drop into both eyes nightly 10/15/2018 budesonide-formoter ol (SYMBICORT) 160-4.5 mcg/actuation inhaler inhale 2 puff by inhalation route every day in the morning and evening 0 Inhaler 0 03/31/2016 cholecalciferol (VITAMIN D3) 1,000 unit capsule take 1 by Oral route every day 0 0 06/24/2016 folic acid 0.8 mg capsule 0.8 mg. 0 0 06/24/2016 hydrocortisone 2.5 % ointment 07/22/2021 apixaban (ELIQUIS) 5 mg tabletIndications:L dianna term current use of 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 Take 1 tablet (5 mg total) by mouth 2 (two) times a day 180 tablet 3 08/30/2022 3 furosemide (LASIX) 20 mg tabletIndications:B ilateral lower extremity edema Take 1 tablet (20 mg total) by mouth daily as needed (swelling) 30 tablet 1 08/28/2018 4 hydroCHLOROthiazide (MICROZIDE) 12.5 mg capsule Take 1 capsule (12.5 mg total) by mouth daily 05/24/2022 3 LANSOPRAZOLE 3 MG/ML SUSP (PREVACID) 08/25/2021 4 documented as of this encounter Discharge Disposition Disposition Code Departure Means Destination Discharge to home or self care documented in this encounter Plan of Treatment Not on file documented as of this encounter Procedures Procedure Name Priority Date/Time Associated Diagnosis Comments EGFR Routine 08/30/2022 8:45 AM CDT 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) USP current use of 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 DIFFERENTIAL AUTO Routine 08/30/2022 8:4 5 AM CDT 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 73 m2 [facility] Comment: Interpretive Data Reference Interval Normal ?>/= 90 mL/min/1.73m2 Mildly decreased* ? 60 - 89 mL/min/1.73m2 Mildly to moderately decreased ?45 - 59 mL/min/1.73m2 Moderately to severely decreased ??30 - 44 mL/min/1.73m2 Severely decreased ?15 - 29 mL/min/1.73m2 Kidney Failure ?< 15 ??mL/min/1.73m2 *Relative to young adult level Estimated glomerular filtration rate is determined by the 2020 CKD-EPI equation recommended by the National Kidney Foundation (A Unifying Approach to GFR Estimation: Recommendations of the NKF-ASK Task Force on Reassessing the Inclusion of Race in Diagnosing Kidney Disease, JASN 2020). The CKD-EPI equation should not be used for patients with unstable renal function and has not been validated in children and those over 70. Current interpretive data was last reviewed 2021. Testing performed by: [facility], [address] [place] [phone] Blood 08/30/2022 8:45 AM CDT 08/30/2022 8:49 AM CDT us Brittany Lerner RETINA SUBSPECIALIST LAB BLOOD ORDERABLES Final Result [facility] Department [place] [address] * (ABNORMAL) Differential, auto (08/30/2022 8:45 AM CDT) Neutrophil abs 1.2(L) 1.8 - 6.6 K/cumm [facility] Comment:Testing performed by : [facility], [address] [place] [phone] Lymphocyte abs 1.1(L) 1.2 - 3.3 K/cumm [facility] Comment:Testing performed by : [facility], [address] [place] [phone] Monocyte abs 0.6 0.2 - 1.2 K/cumm [facility] Comment:Testing performed by : [facility], [address] [place] [phone] Eosinophil abs 0.1 0.0 - 0.5 K/cumm [facility] Comment:Testing performed by : [facility], [address] [place] [phone] Basophil abs 0.0 0.0 - 0.2 K/cumm [facility] Comment:Testing performed by : [facility], [address] [place] [phone] Neutrophil pct 38.2 % [facility] Comment: Interpretive Data Percent cell count reference ranges are not reported, since discordance with absolute values may lead to misinterpretation of CBC data. Current Interpretive Data was last revised on 2017. Testing performed by: [facility], [address] [place] [phone] Lymphocyte pct 36.9 % [facility] Comment: Interpretive Data Percent cell count reference ranges are not reported, since discordance with absolute values may lead to misinterpretation of CBC data. Current Interpretive Data was last revised on 2017. Testing performed by: [facility], [address] [place] [phone] Monocyte pct 20.0 % [facility] Comment:Testing performed by : [facility], [address] [place] [phone] Eosinophil pct 3.5 % [facility] Comment:Testing performed by : [facility], [address] [place] [phone] Basophil pct 1.4 % [facility] Comment:Testing performed by : [facility], [address] [place] [phone] Blood 08/30/2022 8:45 AM CDT 08/30/2022 8:49 AM CDT us Brittany Lerner RETINA SUBSPECIALIST LAB BLOOD ORDERABLES Final Result [facility] Department [place] [address] * (ABNORMAL) CBC with auto differential (08/30/2022 8:45 AM CDT) WBC 3.0(L) 3.8 - 9.8 K/cumm [facility] Comment:Testing performed by : [facility], [address] [place] [phone] Hgb 11.7(L) 13.8 - 17.2 g/dL [facility] Comment:Testing performed by : [address] [phone] Hct 36.7(L) 40.7 - 50.3 % [facility] Comment:Testing performed by : [facility], [address] [place] [phone] Plt 310 140 - 440 K/cumm [facility] Comment:Testing performed by : [address] [phone] MPV 9.8 6.8 - 10.4 fL [facility] Comment:Testing performed by : [address] [phone] RBC 4.20(L) 4.50 - 5.70 M/cumm [facility] Comment:Testing performed by : [facility], [address] [place] [phone] MCV 87.4 80.0 - 97.6 fL [facility] Comment:Testing performed by : [address] [phone] MCH 27.9 26.7 - 33.7 pg [facility] Comment:Testing performed by : [address] [phone] MCHC 31.9(L) 32.7 - 35.5 g/dL [facility] Comment:Testing performed by : [facility], [address] [place] [phone] RDW CV 18.2(H) 11.8 - 14.6 % [facility] Comment:Testing performed by : [facility], [address] [place] [phone] NRBC abs 0.00 0.00 - 0.01 K/cumm [facility] Comment:Testing performed by : [facility], [address] [place] [phone] Blood 08/30/2022 8:45 AM CDT 08/30/2022 8:49 AM CDT Brittany Lerner RETINA SUBSPECIALIST LAB BLOOD ORDERABLES Final Result Performing Organization Address [facility] de Phone Number [facility] [place] [address] * Reticulocyte Count (08/30/2022 8:45 AM CDT) [facility] Retics, absolute 0.038 0.020 - 0.087 M/cumm [facility] Comment:Testing performed by : [facility], [address] [place] [phone] Retics 0.91 0.50 - 1.80 % [facility] Comment:Testing performed by : [facility], [address] [place] [phone] Blood 08/30/2022 8:45 AM CDT 08/30/2022 8:49 AM CDT Brittany Lerner RETINA SUBSPECIALIST LAB BLOOD ORDERABLES Final Result Performing Organization Address [facility] de Phone Number [facility] [place] [address] * (ABNORMAL) Basic metabolic panel (08/30/2022 8:45 AM CDT) [facility] Sodium 140 135 - 145 mmol/L [facility] Comment:Testing performed by : [facility], [address] [place] [phone] Potassium, pl 4.7 3.3 - 4.9 mmol/L [facility] Comment:Testing performed by : [facility], [address] [place] [phone] Chloride 103 97 - 110 mmol/L [facility] Comment:Testing performed by : [facility], [address] [place] [phone] CO2 30 22 - 32 mmol/L [facility] Comment:Testing performed by : [facility], [address] [place] [phone] Anion gap 7 2 - 15 mmol/L [facility] Comment:Testing performed by : [facility], [address] [place] [phone] BUN 21 8 - 25 mg/dL [facility] Comment:Testing performed by : [facility], [address] [place] [phone] Creatinine 1.36(H) 0.80 - 1.30 mg/dL [facility] Comment:Testing performed by : [facility], [address] [place] [phone] Glucose 96 70 - 199 mg/dL [facility] Comment: Interpretive Data Fasting glucose [...] classification and Diagnosis of Diabetes Diabetes Care 202; 46: S19-S40. Current interpretive data was last revised 2022. Testing performed by: [facility], [address] [place] [phone] Calcium 10.0 8.5 - 10.3 mg/dL [facility] Comment:Testing performed by : [facility], [address] [place] [phone] Blood 08/30/2022 8:45 AM CDT 08/30/2022 8:49 AM CDT Brittany Lerner RETINA SUBSPECIALIST LAB BLOOD ORDERABLES Final Result [facility] Department [place] [address] documented in this encounter Visit Diagnoses Diagnosis 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) USP current use of 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 documented in this encounter Care Teams Shell Worker Relationship Specialty Start Date End Date Timothy Banks MD PCP - General 07/08/16 documented as of this encounter
--- OUTSIDE RECORDS SUMMARY | 2024-04-09 17:29 | XMS_ITS | Encounter Summary ---
Author Organization [facility] Healthcare Address [address] [place] [address] Care Team Providers Care Check Examiner Name Role Phone Timothy Banks MD Primary Care Provider [phone] Encounter Details Date Type Department Care Team (Latest Contact Info) Description 08/24/2023 7:27 AM CDT - 08/24/2023 11:59 PM CDT Hospital Encounter [facility] Advanced Medicine [facility] ([facility]) [address] [place] [phone] 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); jail current use of 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 Discharge Disposition: Discharge to home or self care Social History Tobacco Use Types Packs/Day Years Used Date Smoking Tobacco: Never Smokeless Tobacco: Never Alcohol Use Standard Drinks/Week Comments Yes 0 (1 standard drink = 0.6 oz pur e alcohol) Sex and Gender Information Value Date Recorded Sex Assigned at Not on file 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 Gender Identity Male 01/12/2020 7:43 PM CDT [...] 2 (two) times a day 180 tablet 07/14/2023 4 furosemide (LASIX) 20 mg tabletIndications:B ilateral lower extremity edema Take 1 tablet (20 mg total) by mouth daily as needed (swelling) 30 tablet 1 08/28/2018 4 LANSOPRAZOLE 3 MG/ML SUSP (PREVACID) 08/25/2021 4 documented as of this encounter Discharge Disposition Disposition Code Departure Means Destination Discharge to home or self care documented in this encounter Plan of Treatment Not on file documented as of this encounter Procedures Procedure Name Priority Date/Time Associated Diagnosis Comments EGFR Routine 08/24/2023 9:00 AM CDT 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) 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 DIFFERENTIAL AUTO Routine 08/24/2023 9:0 0 AM CDT 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) jail current use of 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 CBC WITH AUTO DIFFERENTIAL Routine 08/24/2023 9:00 AM CDT 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 eGFR 56(L) >=60 mL/min/1. 73 m2 Comment: Interpretive Data Reference Interval Normal ?>/= [...] was last reviewed 2021. Testing performed by: [facility], [address] [place] [phone] Blood 08/24/2023 9:00 AM CDT 08/24/2023 9:01 AM CDT Brittany Lerner ASBESTOS CEMENT SHEET SUPERVISOR LAB BLOOD ORDERABLES Final Result Performing Organization Address City/State/[facility] Co de Phone Number [facility] Department of Laboratories [place], [place] [id number] * (ABNORMAL) Differential, auto (08/24/2023 9:00 AM CDT) Neutrophil abs 0.6(L) 1.5 - 6.6 K/cumm Comment:Testing performed by : [facility], [address] [place] [phone] Lymphocyte abs 1.1(L) 1.2 - 3.3 K/cumm AIME DOBBS Comment:Testing performed by : [facility], [address] [place] [phone] Monocyte abs 0.3 0.2 - 1.2 K/cumm CERMELLO BJ Comment:Testing performed by : [facility], [address] [place] [phone] Eosinophil abs 0.1 0.0 - 0.5 K/cumm CERMELLO BJ Comment:Testing performed by : [facility], [address] [place] [phone] Basophil abs 0.0 0.0 - 0.2 K/cumm CERMELLO BJ Comment:Testing performed by : [facility], [address] [place] [phone] Neutrophil pct 26.4 % CERMELLO BJ Comment: Interpretive Data Percent cell count reference ranges are not reported, since discordance with absolute values may lead to misinterpretation of CBC data. Current Interpretive Data was last revised on 2017. Testing performed by: [facility], [address] [place] [phone] Lymphocyte pct 54.0 % CERMELLO BJ Comment: Interpretive Data Percent cell count reference ranges are not reported, since discordance with absolute values may lead to misinterpretation of CBC data. Current Interpretive Data was last revised on 2017. Testing performed by: [facility], [address] [place] [phone] Monocyte pct 14.6 % CERMELLO BJ Comment:Testing performed by : [address] [phone] Eosinophil pct 3.7 % CERMELLO BJ Comment:Testing performed by : [facility], [address] [place] [phone] Basophil pct 1.3 % CERNER BJ Comment:Testing performed by : [address] [phone] Blood 08/24/2023 9:00 AM CDT 08/24/2023 9:01 AM CDT Brittany Lerner ASBESTOS CEMENT SHEET SUPERVISOR LAB BLOOD ORDERABLES Final Result [facility] [place] [address] * (ABNORMAL) CBC with auto differential (08/24/2023 9:00 AM CDT) WBC 2.1(L) 3.8 - 9.8 K/cumm Comment:Testing performed by : [facility], [address] [place] [phone] Hgb 13.3(L) 13.8 - 17.2 g/dL CERNER BJ Comment:Testing performed by : [facility], [address] [place] [phone] Hct 40.9 40.7 - 50.3 % CERNER BJ Comment:Testing performed by : [facility], [address] [place], [place] [phone] Plt 224 140 - 440 K/cumm CERNER BJ Comment:Testing performed by : [facility], [address] [place] [phone] MPV 10.4 6.8 - 10.4 fL CERNER BJ Comment:Testing performed by : [address] [phone] RBC 4.65 4.50 - 5.70 M/cumm CERNER BJ Comment:Testing performed by : [address] [phone] MCV 88.0 80.0 - 97.6 fL CERNER BJ Comment:Testing performed by : [facility], [address] [place] [phone] MCH 28.6 26.7 - 33.7 pg CERNER BJ Comment:Testing performed by : [address] [phone] MCHC 32.5(L) 32.7 - 35.5 g/dL CERNER BJ Comment:Testing performed by : [address] [phone] RDW CV 19.9(H) 11.8 - 14.6 % CERNER BJ Comment:Testing performed by : [facility], [address] [place] [phone] NRBC abs 0.00 0.00 - 0.01 K/cumm [facility] Comment:Testing performed by : [facility], [address] [place] [phone] Blood 08/24/2023 9:00 AM CDT 08/24/2023 9:01 AM CDT Brittany Lerner ASBESTOS CEMENT SHEET SUPERVISOR LAB BLOOD ORDERABLES Final Result Performing Organization Address [facility] de Phone Number [facility] [place] [address] * Reticulocyte Count (08/24/2023 9:00 AM CDT) [facility] Retics, absolute 0.038 0.020 - 0.087 M/cumm Comment:Testing performed by : [facility], [address] [place] [phone] Retics 0.82 0.50 - 1.80 % [facility] Comment:Testing performed by : [facility], [address] [place] [phone] Blood 08/24/2023 9:00 AM CDT 08/24/2023 9:01 AM CDT Brtitany Lerner ASBESTOS CEMENT SHEET SUPERVISOR LAB BLOOD ORDERABLES Final Result Performing Organization Address [facility] de Phone Number [facility] [place] [address] * (ABNORMAL) Basic metabolic panel (08/24/2023 9:00 AM CDT) [facility] Sodium 144 135 - 145 mmol/L Comment:Testing performed by : [facility], [address] [place] [phone] Potassium, pl 4.7 3.3 - 4.9 mmol/L [facility] Comment:Testing performed by : [facility], [address] [place] [phone] Chloride 107 97 - 110 mmol/L AIME [facility] Comment:Testing performed by : [facility], [address] [place] [phone] CO2 27 22 - 32 mmol/L [facility] Comment:Testing performed by : [facility], [address] [place] [phone] Anion gap 10 2 - 15 mmol/L [facility] Comment:Testing performed by : [facility], [address] [place] [phone] BUN 16 6 - 25 mg/dL AIME [facility] Comment:Testing performed by : [facility], [address] [place] [phone] Creatinine 1.31(H) 0.80 - 1.30 mg/dL [facility] Comment:Testing performed by : [facility], [address] [place] [phone] Glucose 83 70 - 199 mg/dL [facility] Comment: [...] was last revised 2022. 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
--- OUTSIDE RECORDS SUMMARY | 2024-04-09 17:29 | XMS_ITS | Encounter Summary ---
Author Organization [facility] Medical Group Address [address] [place] [address] Care Team Providers Care Audio Installer Name Role Phone Timothy Banks MD Primary Care Provider [phone] Encounter Details Date Type Department Care Team (Late st Contact Info) Description 10/12/[address] 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 Gender Identity Male 01/12/2020 7:43 PM CDT Sexual Orientation Straight 01/12/2020 7: 43 PM CDT documented as of this encounter Plan of Treatment Not on file documented as of this encounter Procedures Procedure Name Priority Date/Time Associated Diagnosis Comments CARDIOLOGY DOCUMENT SCAN Routine 023 10:27 AM CDT documented in this encounter Results * Cardiology Document Scan (10/07/2022 10:27 AM CDT) Anatomical Region Laterality Modality Other Reggie Jackson MD CV CARDIAC SERVICES PROC EDURES Final Result documented in this encounter Visit Diagnoses Not on filedocumented in this encounter Care Teams Audio Installer Relationship Specialty Start Date End Date Timothy Banks MD PCP - General 07/08/16 documented as of this encounter
--- OUTSIDE RECORDS SUMMARY | 2024-04-09 17:29 | XMS_ITS | Encounter Summary ---
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 (Primary Dx) Social History Tobacco Use Types Packs/Day Years Used Date Smoking Tobacco: Never Smokeless Tobacco: Never Alcohol Use Standard Drinks/Week Comments Yes 0 (1 standard drink = 0.6 oz pur e alcohol) Sex and Gender Information Value Date Recorded Sex Assigned at Not on file 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 Gender Identity Male 01/12/2020 7:43 PM CDT Sexual Orientation Straight 01/12/2020 7: 43 PM CDT documented as of this encounter Ordered Prescriptions Prescription Sig Dispense Quantity Refills Last Filled Start Date End Date apixaban (ELIQUIS) 5 mg tabletIndications:L dianna term current use of 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 Take 1 tablet (5 mg total) by mouth 2 (two) times a day 60 tablet 11 03/15/2022 3 documented in this encounter Plan of Treatment Not on file documented as of this encounter Visit Diagnoses Diagnosis 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
--- OUTSIDE RECORDS SUMMARY | 2024-04-09 17:29 | XMS_ITS | Encounter Summary ---
Author Organization [facility] Address [address] [place] [address] Phone Care Team Providers Care Telescope Repairer Name Role Phone Timothy Banks MD Primary Care Provider [phone] Encounter Details Date Type Department Care Team (Late st Contact Info) Description 01/25/2024 Telephone [facility] Cardiology [facility] 8th [place] [address] [place] [address] Marylin Dowell Social History Tobacco Use Types Packs/Day Years Used Date Smoking Tobacco: Never Smokeless Tobacco: Never Alcohol Use Standard Drinks/Week Comments Yes 0 (1 standard drink = 0.6 oz pur e alcohol) Sex and Gender Information Value Date Recorded Sex Assigned at Not on file Legal Sex Male 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 Disconnected from call. documented in this encounter Plan of Treatment Not on file documented as of this encounter Visit Diagnoses Not on filedocumented in this encounter Care Teams Telescope Repairer Relationship Specialty Start Date End Date Timothy Banks MD PCP - General 07/08/16 documented as of this encounter
--- OUTSIDE RECORDS SUMMARY | 2024-04-09 17:29 | XMS_ITS | Encounter Summary ---
Author Organization [facility] Healthcare Address [address] [place] [address] Care Team Providers Care E Commerce Developer Name Role Phone Timothy Banks MD Primary Care Provider [phone] Encounter Details Date Type Department Care Team (Late st Contact Info) Description 01/10/2024 Orders Only [facility] Medical Group Cardiology [address] [place] [address] Bebeto Reynoso MD [address] [id number] Social History Tobacco Use Types Packs/Day Years Used Date Smoking Tobacco: Never Smokeless Tobacco: Never Alcohol Use Standard Drinks/Week Comments Yes 0 (1 standard drink = 0.6 oz pur e alcohol) Sex and Gender Information Value Date Recorded Sex Assigned at Not on file 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 Sex Male 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 Gender Identity Male 01/12/2020 7:43 PM CDT Sexual Orientation Straight 01/12/2020 7: 43 PM CDT documented as of this encounter Plan of Treatment Not on file documented as of this encounter Procedures Procedure Name Priority Date/Time Associated Diagnosis Comments CARDIOLOGY DOCUMENT SCAN Routine 01/07/2024 5:20 PM CDT documented in this encounter Results * Cardiology Document Scan (01/07/2024 5:20 PM CDT) Anatomical Region Laterality Modality Other Bebeto Reynoso MD CV CARDIAC SERVICES PROCEDURES F inal Result documented in this encounter Visit Diagnoses Not on filedocumented in this encounter Care Teams E Commerce Developer Relationship Specialty Start Date End Date Timothy Banks MD PCP - General 07/08/16 documented as of this encounter
--- OUTSIDE RECORDS SUMMARY | 2024-04-09 17:30 | XMS_ITS | Encounter Summary ---
Author Organization [facility] Facility Care Team Providers Care Phlebotomy Services Technician Name Role Phone Unavailable Primary Care Provider Unavailabl e Encounter Details Date Type Department Care Team (Late st Contact Info) Description 08/19/2013 - 08/19/2013 11:59 PM CDT Hospital Encounter [facility] Tavares [place] Chronic kidney disease, stage III (moderate) (HCC) Social History Tobacco Use Types Packs/Day Years Used Date Smoking Tobacco: Never Assessed Sex and Gender Information Value Date Recorded Sex Assigned at Not on file Legal Sex Male 4:19 AM RAMP BOSS Gender Identity Male 01/12/2020 7:43 PM CDT Sexual Orientation Straight 01/12/2020 7: 43 PM CDT documented as of this encounter Plan of Treatment Not on file documented as of this encounter Procedures Procedure Name Priority Date/Time Associated Diagnosis Comments DISCHARGE LABORATORY CUMULATIVE REPORT Routine 08/20/2013 9:08 AM CDT URINE MICROSCOPY Routine 08/19/2013 2:1 1 PM CDT PLASMA RENAL PANEL Routine 08/19/2013 2: 11 PM CDT PLASMA PARATHYROID HORMONE (PTH), INTACT Routine 08/19/2013 2:11 PM CDT URINALYSIS Routine 08/19/2013 2:11 PM CDT URINE PROTEIN, CREATININE Routine 08/19/2013 1:44 PM CDT documented in this encounter Results * Discharge Laboratory Cumulative Report (08/20/2013 9:08 AM CDT) 08/20/2013 9:08 AM CDT Narrative HISTORICAL RESULTS - 08/20/2013 9:08 AM CDT ? [facility] ? Department of Laboratories ?[place] [address] ?[facility] ?Outpatient ?Physician Patient Name: ? MONIQUE NAEDEM W Med Rec Number: ?? [id number] Date of : ?1945 Gender/Age: ? Male 67 years Doctor: ? Tavares Hannon M.D. Report Date/Time: 08/20/2013 09:08 ?* Abnormal ??C Critical ??f Footnote ??^ Corrected ??L Low ??H High ?i Interp Data ??@ Reference Lab ?Chart Type: Cumulative ? CHEMISTRY ? Standard Blood Chemistry ? 08/19/2013 ? 14:11:46 Test ? Units ?? Reference Sodium ? 145 ? mmol/L ??135-145 Plasma Potassium ?? 4.9 ? mmol/L ??3.3-4.9 Chloride ? 106 ? mmol/L ??97-110 Total CO2 ?27 ?mmol/L ??22-32 Anion Gap ?12 ?mmol/L ??0-16 BUN ?16 ?mg/dL ?? 8-25 Creatinine ? 1.36 ??H ? mg/dL ?? 0.70-1.30 Glucose ?95 ?mg/dL ?? 70-199 Total Calcium ?9.6 ? mg/dL ?? 8.6-10.3 Plasma Phosphorus ??3.0 ? mg/dL ?? 2.3-4.3 Albumin ?4.4 ? g/dL ?3.6-5.0 ? Hormones ?08/19/2013 ?14:11:20 Test ?Units ??Reference Intact PTH ??See Comment ??f ??pg/mL ??14-72 08/19/2013 14:11:20 ??Intact PTH: Credited, quantity not sufficient. ? Quantitative Urine Chemistry ? 08/19/2013 ? 13:44:00 Test ? Units ??Reference Prot Ur_Creat Ur Ratio ?? 0.0 ? Ratio Random Urine Creatinine ??148.00 ?mg/dL Random Urine Protein i ?? 6.7 ? mg/dL ? CHEMISTRY ? Quantitative Urine Chemistry 08/19/2013 13:44:00 Random Urine Protein: Interpretive Data Urine protein values from patients receiving aminoglycosides may be falsely elevated. Current interpretive data was last revised on 05. ?URINALYSIS ?08/19/2013 ?14:11:12 Test ?Units ??Reference Color ? Yellow ? [Yellow] Clarity ? Clear ?[Clear] Specific Mcnabb ??1.017 ?[1.003-1.030] pH ?5.5 ?[5.0-8.0] Albumin ? Negative ? [Trace] Glucose ? Negative ? [Negative] Ketones ? Negative ? [Negative] Bilirubin ? Negative ? [Negative] Blood ? Negative ? [Negative] Urobilinogen ?<2.0 ?mg/dL ??[0.0-2.0] Nitrite ? Negative ? [Negative] Leuk Esterase ? Negative ? [Negative] Mucus Thrds ? Small ? /HPF RBC Ur ?1 ? /HPF ?? [0-3] WBC Ur ?2 ? /HPF ?? [0-5] Bacteria Ur ? Trace ?[Trace] Epithl Renl Ur ?0 ? /HPF ?? [0-0] Hyaline Cast ?>2 ??H ? /LPF ?? [0-0] us Historical Provider MD LAB BLOOD ORDERABLES Jamila l Result HISTORICAL RESULTS * Urinalysis (08/19/2013 2:11 PM CDT) Color, ur Yellow Yellow HISTORICAL RESULTS Clarity, ur Clear Clear HISTORIC AL RESULTS Specific gravity, ur 1.017 1.003 - 1.030 HISTORICAL RESULTS pH, ur 5.5 5.0 - 8.0 HISTORICAL RESULTS Protein, ur Negative Trace HISTORIC AL RESULTS Glucose, ur Negative Negative HISTORIC AL RESULTS Ketones, ur Negative Negative HISTORIC AL RESULTS Bilirubin, ur Negative Negative HISTOR ICAL RESULTS U Blood Negative Negative HISTORICAL RESULTS Urobilinogen, quant, ur <2.0 0.0 - 2.0 mg/dl HISTORICAL RESULTS Nitrites, ur Negative Negative HISTORI NAILA RESULTS Leukocyte esterase, ur Negative Negative HISTORICAL RESULTS Urine 08/19/2013 2:11 PM CDT Tavares Hannon LAB BLOOD ORDERABLES Final Resul t Performing Organization Address [facility] de Phone Number HISTORICAL RESULTS * (ABNORMAL) Urine microscopy (08/19/2013 2:11 PM CDT) RBC, ur 1 0 - 3 /hpf HISTORICA L RESULTS WBC, ur 2 0 - 5 /hpf HISTORICA L RESULTS Bacteria, ur Trace Trace HISTORI NAILA RESULTS Epithelial cells, renal, ur 0 0 - 0 /hpf HISTORICAL RESULTS Mucus, ur Small /hpf HISTORICAL RESULTS Hyaline casts >2(H) 0 - 0 /lpf HISTO RICAL RESULTS Urine 08/19/2013 2:11 PM CDT Tavares Hannon LAB BLOOD ORDERABLES Final Resul t Performing Organization Address [facility] de Phone Number HISTORICAL RESULTS * Plasma parathyroid hormone (PTH), intact (08/19/2013 2:11 PM CDT) PTH, intact See Comment 14 - 72 pg/ml HISTORICAL RESULTS Comment:{Credited, quantity not sufficient.} Plasma 08/19/2013 2:11 PM CDT Tavares Hannon LAB BLOOD ORDERABLES Final Resul t Performing Organization Address [facility] de Phone Number HISTORICAL RESULTS * (ABNORMAL) Plasma renal panel (08/19/2013 2:11 PM CDT) Sodium 145 135 - 145 mmol/L HISTORICAL RESULTS K, pl 4.9 3.3 - 4.9 mmol/L HISTORICAL RESULTS Chloride 106 97 - 110 mmol/L HISTORICAL RESULTS CO2 27 22 - 32 mmol/L HISTORICAL RESULTS A. gap 12 0 - 16 mmol/L HISTORICAL RESULTS Glucose 95 70 - 199 mg/dl HISTORICAL RESULTS BUN 16 8 - 25 mg/dl HISTORICAL RESULTS Creatinine 1.36(H) 0.70 - 1.30 mg/dl HISTORICAL RESULTS Calcium 9.6 8.6 - 10.3 mg/dl HISTORICAL RESULTS Phosphorus, pl 3.0 2.3 - 4.3 mg/dl HISTORICAL RESULTS Alb 4.4 3.6 - 5.0 g/dl HISTORICAL RESULTS Plasma 08/19/2013 2:11 PM CDT Tavares Hannon LAB BLOOD ORDERABLES Final Resul t Performing Organization Address [facility] de Phone Number HISTORICAL RESULTS * Urine protein, creatinine (08/19/2013 1:44 PM CDT) Protein, ur, quant 6.7 mg/dl H ISTORICAL RESULTS Comment: Interpretive Data Urine protein values from patients receiving aminoglycosides may be falsely elevated. Current interpretive data was last revised on 05. Creatinine, ur 148 mg/dl HISTO RICAL RESULTS Protein/creatinine ratio 0.0 ratio HISTORICAL RESULTS Urine 08/19/2013 1:44 PM CDT Tavares Hannon LAB BLOOD ORDERABLES Final Resul t Performing Organization Address [facility] Co de Phone Number HISTORICAL RESULTS documented in this encounter Visit Diagnoses Diagnosis Chronic kidney disease, stage III (moderate) (HCC) Chronic kidney disease, Stage III (moderate) documented in this encounter
--- OUTSIDE RECORDS SUMMARY | 2024-04-09 17:30 | XMS_ITS | Encounter Summary ---
Author Organization [facility] Address [address] [place] [address] Care Team Providers Care Tufting Machine Fixer Name Role Phone Timothy Banks MD Primary Care Provider [phone] Reason for Visit * Reason Comments Follow-up 3 mo f/u on RBBB, SV T, cardiac arrhythmia Encounter Details Date Type Department Care Team (Latest Contact Info) Description 09/05/2017 8:45 AM CDT Office Visit [facility] [address] [place] [address] Jayro Kaminski MD [facility] [place] [phone] group home current use of 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 (Primary Dx); Hypertensive left ventricular hypertrophy, without heart failure; Ventricular premature beats; Cardiac arrhythmia, unspecified cardiac arrhythmia type Social History Tobacco Use Types Packs/Day Years Used Date Smoking Tobacco: Never Smokeless Tobacco: Never Alcohol Use Standard Drinks/Week Comments Yes 0 (1 standard drink = 0.6 oz pur e alcohol) Sex and Gender Information Value Date Recorded Sex Assigned at Not on file 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 Sex 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 Gender Identity Male 01/12/2020 7:43 PM CDT Sexual Orientation Straight 01/12/2020 7: 43 PM CDT documented as of this encounter Last Filed Vital Signs Vital Sign Reading Time Taken Comments Blood Pressure 112/78 09/05/2017 8:21 AM CDT Pulse 79 09/05/2017 8:21 AM CDT Temperature - - Respiratory Rate - - Oxygen Saturation 99% 09/05/2017 8:21 AM CDT Inhaled Oxygen Concentration - - Weight 109.3 kg (241 lb) 09/05/2017 8:21 AM CDT Height 185.4 cm (6' 1 ) 09/05/2017 8:21 AM CDT Body Mass Index 31.8 09/05/2017 8:21 AM CDT documented in this encounter Progress Notes * Jayro Kaminski MD - 09/05/2017 8:45 AM CDT [facility] DATE OF VISIT: 09/05/2017 CHIEF COMPLAINT Chief Complaint Patient presents with ??? Follow-up 3 mo f/u on RBBB, SVT, cardiac arrhythmia HPI Russ Kern is a 71 y.o. male with arrhythmia and PVCs. He was seen because of an upper respiratory tract infection and bronchitis by his primary care physician. Nurse practitioner noticed an irregular heartbeat an EKG showed right bundle branch block with PVCs. This led him to have an echocardiogram at [facility] which was normal except for moderate [...] paroxysmal nocturnal dyspnea, orthopnea, edema or palpitations. MEDICAL HISTORY Past Medical History: Diagnosis Date ??? HX OTHER MEDICAL recurrent DVT, gerd[facility] ; Comments: [facility] 03/31/2016 - ??? HX OTHER MEDICAL CKD; Comments: [facility] 03/31/2016 - Social History Substance Use Topics ??? Smoking status: Never Smoker ??? Smokeless tobacco: Never Used ??? Alcohol use Yes No family history on file. MEDICATIONS Home Medications ALBUTEROL HFA (PROAIR HFA) 90 MCG/ACTUATION INHALER inhale 2 puff by inhalation route every 4 - 6 hours as needed BUDESONIDE-FORMOTEROL (SYMBICORT) 160-4.5 MCG/ACTUATION INHALER inhale 2 puff by inhalation route every day in the morning and evening CHOLECALCIFEROL (VITAMIN D3) 1,000 UNIT CAPSULE take 1 by Oral route every day DEXLANSOPRAZOLE (DEXILANT) 60 MG CAPSULE take 1 capsule by oral route every day for 8 weeks FOLIC ACID 0.8 MG CAPSULE 0.8 mg. MULTIVITAMIN TABLET Take 1 tablet by mouth. ALLERGIES No Known Allergies REVIEW OF SYSTEMS Review of Systems Constitution: Negative for weight gain and weight loss. HENT: Negative for hearing loss. Eyes: Negative for blurred vision and visual disturbance. Cardiovascular: Negative for chest pain, claudication, dyspnea on exertion, irregular heartbeat, leg swelling, near-syncope, orthopnea, palpitations, paroxysmal nocturnal dyspnea and [...] for environmental allergies. PHYSICAL EXAM Blood pressure 112/78, pulse 79, height 185.4 cm (6' 1 ), weight 109.3 kg (241 lb), SpO2 99 %. Body mass index is 31.8 kg/m??. Physical Exam Constitutional: He is oriented to person, place, and time. He appears well-nourished. HENT: Head: Normocephalic and atraumatic. Nose: Nose normal. Eyes: Conjunctivae and EOM are normal. No scleral icterus. Neck: Neck supple. Cardiovascular: Normal rate, regular rhythm, normal heart sounds and intact distal pulses. Exam reveals no gallop and no friction rub. No murmur heard. Pulmonary/Chest: Effort normal and breath sounds normal. No respiratory distress. He has no wheezes. He has no rales. He exhibits no tenderness. Abdominal: Soft. Bowel sounds are normal. He exhibits no distension. There is no tenderness. Musculoskeletal: Normal range of motion. He exhibits no edema. Varicose veins Neurological: He is alert and oriented to person, place, and time. Skin: Skin is warm and dry. Psychiatric: He has a normal mood and affect. LABS AND OTHER DIAGNOSTIC TESTS Lab Results Component Value Date WBC 5.4 08/29/2017 HGB 13.4 (L) 08/29/2017 HCT 41.6 08/29/2017 MCV 87.8 08/29/2017 Chemistry Component Value Date/Time CO2 30 08/29/2017 1505 CREATININE 1.43 (H) 08/29/2017 1505 Component Value Date/Time CALCIUM 9.6 08/29/2017 1505 BILITOT Negative 01/25/2014 0516 No results found for: CHOL No results found for: HDL No results found for: LDL] No results found for: LDLCALC No results found for: TRIG No results found for: CHOLHDL EKG Echo Holter monitor June 2017: Normal sinus rhythm with average heart rate 84 beats per minute. Low-frequency ventricular ectopy. Frequent supraventricular ectopy including short atrial runs, 37 atrial pairs, atrial bigeminy and atrial trigeminy and 5470 single PACs. Carotid artery ultrasound 06/28/2016 shows less than 50% bilateral carotid disease. ASSESSMENT Diagnoses and all orders for this visit: 1. Lightheadedness (Primary) Only 1 episode since last visit. Feeling better. 2. 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 Cardiac arrhythmia, unspecified cardiac arrhythmia type Low-frequency frequency ventricular ectopy. High frequency supraventricular ectopy and brief atrialruns. Asymptomatic however. 6. RBBB 7. SVT: No sustained symptoms PLAN/RECOMMENDATIONS No changes to his cardiac regimen at this point. I will see him back in 6 months or sooner as clinically indicated. Follow-up in 6 months or sooner as clinically indicated Jayro Kaminski MD, [facility] documented in this encounter Plan of Treatment Not on file documented as of this encounter Procedures Procedure Name Priority Date/Time Associated Diagnosis Comments POCT LIPID PANEL Routine 09/05/2017 8:42 AM CDT Hypertensive left ventricular hypertrophy, without heart failure Ventricular premature beats Cardiac arrhythmia, unspecified cardiac arrhythmia type documented in this encounter Results * POCT lipid panel (09/05/2017 8:42 AM CDT) Cholesterol, POC 153 mg/dL HDL, POC 41 mg/dL Triglycerides, POC 97 mg/dL LDL Cholesterol POC 93 mg/dL Chol/HDL Ratio, POC 3.7 Non-HDL Cholesterol, POC 112 mg/dL Cholesterol Total, POC 153 mg/dL Blood specimen (specimen) 09/05/2017 8:42 AM CDT Jayro Kaminski MD POINT OF CARE TEST ORDERA BLES Final Result documented in this encounter Visit Diagnoses Diagnosis exterminator helper termite current use of 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- Primary Hypertensive left ventricular hypertrophy, without heart failure Ventricular premature beats Other premature beats Cardiac arrhythmia, unspecified cardiac arrhythmia type documented in this encounter Discontinued Medications Medication Sig Discontinue Reason Start Date End Da te warfarin (COUMADIN) 2 mg tablet take 1 tablet by oral route every day Alternate therapy 06/24/2016 09/05/2017 warfarin (COUMADIN) 5 mg tablet take 1 tablet by oral route every day Or as directed by Dr Kaminski Alternate therapy 06/24/2016 09/05/2017 documented as of this encounter Care Teams Tufting Machine Fixer Relationship Specialty Start Date End Date Timothy Banks MD PCP - General 07/08/16 documented as of this encounter
--- OUTSIDE RECORDS SUMMARY | 2024-04-09 17:30 | XMS_ITS | Encounter Summary ---
Author Organization [facility] Address [address] [place] [address] Phone Care Team Providers Care Pallet Stone Positioner Name Role Phone Timothy Banks MD Primary Care Provider Encounter Details Date Type Department Care Team (Late st Contact Info) Description 09/25/[address] [place] [address] [place] [phone] Mercedes Garcia RN Social History Tobacco Use Types Packs/Day Years Used Date Smoking Tobacco: Never Smokeless Tobacco: Never Alcohol Use Standard Drinks/Week Comments Yes 0 (1 standard drink = 0.6 oz pur e alcohol) Sex and Gender Information Value Date Recorded Sex Assigned at Not on file Legal Sex Male 4:19 AM 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
--- OUTSIDE RECORDS SUMMARY | 2024-04-09 17:30 | XMS_ITS | Encounter Summary ---
Author Organization [facility] Address [address] [facility] [address] [place] [address] Phone Care Team Providers Care Remote Sensing Advisor Name Role Phone Timothy Banks MD Primary Care Provider + [phone] Reason for Visit * Oncology (Routine) - Authorized Specialty Diagnoses / Procedures Referred By Contshakila t Referred To Contact Oncology Diagnoses 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) Hillary Gama MD [address] [place] [address] Phone: tel: fax: Hillary Gama MD [phone] [address] Phone: tel: fax: Referral ID Status Reason Start Date Expiration Date Visits Requested Visits Authorized [id number] Authorized Specialty Services Required 04/10/2017 04/09/2024 99 [id number] Encounter Details Date Type Department Care Team (Latest Contact Info) Description 09/03/2019 10:45 AM CDT Office Visit 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 Gender Identity Male 01/12/2020 7:43 PM CDT Sexual Orientation Straight 01/12/2020 7: 43 PM CDT documented as of this encounter Last Filed Vital Signs Vital Sign Reading Time Taken Comments Blood Pressure 132/81 09/03/2019 10:13 AM CDT Pulse 80 09/03/2019 10:13 AM CDT Temperature 36.7 ??C (98.1 ??F) 09/03/2019 10:13 AM C DT Respiratory Rate 18 09/03/2019 10:13 AM CDT Oxygen Saturation 96% 09/03/2019 10:13 AM CDT Inhaled Oxygen Concentration - - Weight 114.3 kg (252 lb) 09/03/2019 10:13 AM CDT Height - - Body Mass Index 33.25 07/11/2019 8:28 AM CDT documented in this encounter Progress Notes * Brittany Lerner NP - 09/03/2019 10:45 AM CDT PATIENT NAME: Russ Kern : 1945 DATE OF SERVICE: 09/03/2019 Diagnosis: Recurrent thromboembolic disease Current Treatment: 1.?2004, DVT/PE following hiatal repair status post [place] filter placement. ??Warfarin started for 6 months. ??2.?2005, right lower extremity DVT after warfarin discontinuation. ??Warfarin restarted. ??3.?2011, left lower extremity DVT occurred after re-initiation of warfarin after holding 5 days for colonoscopy. ??4.?2017, right lower extremity DVT occurred following re-initiation of warfarin after holding for a small bowel obstruction. HPI: Mr. Kern is a 73 y.o.year old male who presents??for follow up??of recurrent thromboembolic disease. ??To review, Mr. Kern??states he initially developed a left lower extremity DVT and pulmonary embolism in 2004 following hiatal hernia repair. ??This required a [place] filter placement, as well [...] days to undergo a colonoscopy. ??He reports t hat, after being off of warfarin for 5 days, he restarted warfarin without a bridge. ??Shortly after restarting warfarin, he developed a left lower extremity DVT. ??The patient then reports, in 2017,he developed a small bowel obstruction believed to be secondary to viral gastroenteritis. ??As such, he required NG tube placement and was NPO.?He received Lovenox while in the hospital. ??He was not discharged with a Lovenox bridge and was instructed to restart warfarin upon returning home. ??The patient states that, approximately 1 to 2 days after restarting warfarin, he then noticed a rightlower extremity pain and was found to have a recurrent clot in the right lower extremity.?He??reported compliance with warfarin and that his INR was generally in the therapeutic range??however following his initial visit with hematology in August 2017, it was deemed reasonable to switch him to Eliquis BID, as he would not require further monitoring and would not have dietary restrictions.? He has done well with this since that time without evidence of bleeding or recurrent clots. He had a colonoscopy last year with a Lovenox bridge for the procedure and did very well with that. He otherwise denies any significant changes to his health since he was last here. He feels good with no complaints. He denies any increase in swelling or erythema. He denies bleeding. He does have mild swelling and uses compression stockings on occasion. ALLERGIES: No Known Allergies CURRENT MEDICATION: Current [...] every day, Disp: 0, Rfl: 0 ??? dexlansoprazole (DEXILANT) 60 mg capsule, take 1 capsule by oral route every day for 8 weeks, Disp: 0, Rfl: 0 ??? Eliquis 5 mg tablet, TAKE 1 TABLET BY MOUTH TWO TIMES DAILY, Disp: 180 tablet, Rfl: 3 ??? folic acid 0.8 mg capsule, 0.8 mg., Disp: 0, Rfl: 0 ??? furosemide (LASIX) 20 mg tablet, Take 1 tablet (20 mg total) by mouth daily as needed (swelling), Disp: 30 tablet, Rfl: 1 ??? multivitamin (MULTIPLE VITAMINS) tablet, , Disp: , Rfl: HISTORY Social History Socioeconomic History ??? Marital status: Spouse name: Not on file ??? Number of children: Not on file ??? Years of education: Not on file ??? Highest education level: Not on file Occupational History ??? Not on file Social Needs ??? Financial resource strain: Not on file ??? Food insecurity Worry: Not on file Inability: Not on file ??? Transportation needs Medical: Not on file Non-medical: Not on file Tobacco Use ??? Smoking status: Never Smoker ??? Smokeless tobacco: Never Used Substance and Sexual Activity ??? Alcohol use: Yes ??? Drug use: No ??? Sexual activity: Not on file Lifestyle ??? Physical activity Days per week: Not on file Minutes per session: Not on file ??? Stress: Not on file Relationships ??? Social connections Talks on phone: Not on file Gets together: Not on file Attends druze service: Not on file Active member of club or organization: Not on file Attends meetings of clubs or organizations: Not on file Relationship status: Not on file ??? Intimate partner violence Fear of current or ex partner: Not on file Emotionally abused: Not on file Physically abused: Not on file Forced sexual activity: Not on file Other Topics Concern ??? Not on file Social History Narrative ??? Not on file VITALS: Vitals BP 132/81 (BP Location: Right arm) Pulse 80 Temp 36.7 ??C (98.1 ??F) (Oral) Resp 18 Wt 114.3 kg (252 lb) SpO2 96% BMI 33.25 kg/m?? PHYSICAL EXAM: Physical Exam Vitals signs reviewed. Constitutional: Appearance: Normal appearance. HENT: Head: Normocephalic and atraumatic. Mouth/Throat: Mouth: Mucous membranes are moist. Pharynx: Oropharynx is clear. Eyes: Conjunctiva/sclera: Conjunctivae normal. Pupils: Pupils are equal, round, and reactive to light. Neck: Musculoskeletal: Normal range of motion and neck supple. Cardiovascular: Rate and Rhythm: Normal rate and regular rhythm. Heart sounds: Normal heart sounds. Pulmonary: Effort: Pulmonary effort is normal. Breath sounds: Normal breath sounds. Abdominal: Palpations: Abdomen is soft. Musculoskeletal: Normal range of motion. Skin: General: Skin is warm and dry. Neurological: General: No focal deficit present. Mental Status: He is alert and oriented to person, place, and time. Psychiatric: Mood and Affect: Mood normal. Behavior: Behavior normal. LABORATORY DATA: Lab on 09/03/2019 Component Date Value Ref Range Status ??? Sodium 09/03/2019 143 135 - 145 mmol/L Final ??? Potassium, pl 09/03/2019 5.1* 3.3 - 4.9 mmol/L Final ??? Chloride 09/03/2019 107 97 - 110 mmol/L Final ??? CO2 09/03/2019 29 22 - 32 mmol/L Final ??? Anion gap 09/03/2019 7 2 - 15 mmol/L Final ??? BUN 09/03/2019 16 8 - 25 mg/dL Final ??? Creatinine 09/03/2019 1.35* 0.80 - 1.30 mg/dL Final ??? Glucose 09/03/2019 107 70 - 199 mg/dL Final ??? Calcium 09/03/2019 9.5 8.5 - 10.3 mg/dL Final ??? Retics, absolute 09/03/2019 0.040 0.020 - 0.087 M/cumm Final ??? Retics 09/03/2019 0.85 0.50 - 1.80 % Final ??? WBC 09/03/2019 5.2 3.8 - 9.8 K/cumm Final ??? Hgb 09/03/2019 13.4* 13.8 - 17.2 g/dL Final ??? Hct 09/03/2019 40.9 40.7 - 50.3 % Final ??? Plt 09/03/2019 289 140 - 440 K/cumm Final ??? MPV 09/03/2019 9.8 6.8 - 10.4 fL Final ??? RBC 09/03/2019 4.64 4.50 - 5.70 M/cumm Final ??? MCV 09/03/2019 88.3 80.0 - 97.6 fL Final ??? MCH 09/03/2019 28.8 26.7 - 33.7 pg Final ??? MCHC 09/03/2019 32.6* 32.7 - 35.5 g/dL Final ??? RDW CV 09/03/2019 14.6 11.8 - 14.6 % Final ??? NRBC abs 09/03/2019 0.00 0.00 - 0.01 K/cumm Final ??? Neutrophil abs 09/03/2019 2.8 1.8 - 6.6 K/cumm Final ??? Lymphocyte abs 09/03/2019 1.3 1.2 - 3.3 K/cumm Final ??? Monocyte abs 09/03/2019 0.8 0.2 - 1.2 K/cumm Final ??? Eosinophil abs 09/03/2019 0.3 0.0 - 0.5 K/cumm Final ??? Basophil abs 09/03/2019 0.0 0.0 - 0.2 K/cumm Final ??? Neutrophil pct 09/03/2019 53.4 % Final ??? Lymphocyte pct 09/03/2019 24.4 % Final ??? Monocyte pct 09/03/2019 16.3 % Final ??? Eosinophil pct 09/03/2019 5.3 % Final ??? Basophil pct 09/03/2019 0.6 % Final ASSESSMENT AND PLAN: Patient Active Problem List Diagnosis ??? Ventricular premature beats ??? joint terminal attack controller current use of 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 ??? RBBB ??? 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) ??? Hypertensive left ventricular hypertrophy ??? Left ventricular hypertrophy ??? Lightheadedness ??? Cardiac arrhythmia ??? Chronic renal insufficiency, stage III (moderate) (CMS/HCC) ??? Snoring ??? Hypersomnolence ??? Tiredness ??? Other fatigue ??? QAMAR (obstructive sleep apnea) ??? Bilateral lower extremity edema 1.?Thromboembolic disease.?Mr. Kern is a 73 year old male with history of thromboembolic [...] visit in August 2017 and has done well on 5mg BID. ??He did well with his colonoscopy last year with a Lovenox bridge andresumption of Eliquis after the procedure. We would consider this for any future surgeries or procedures. He knows to call, but does not have anything planned. He will otherwise continue Eliquis and return??to clinic in 12 months for continued evaluation, as he sees other specialists in the interimand has done very well on Eliquis now for two years. ?? DISPOSITION: The patient will return follow up in one year. They know to contact our office with any questions or concerns prior to the next follow up appointment. Brittany Lerner NP documented in this encounter Plan of Treatment Not on file documented as of this encounter Results * Basic metabolic panel (09/01/2020 9:26 AM CDT) Sodium 143 135 - 145 mmol/L [facility] Comment:Testing performed by : [facility], [facility] [phone] Potassium, pl 4.8 3.3 - 4.9 mmol/L [facility] Comment:Testing performed by : [facility], [address] [facility] [phone] Chloride 107 97 - 110 mmol/L [facility] Comment:Testing performed by : [facility], [address] [place] [phone] CO2 30 22 - 32 mmol/L [facility] Comment:Testing performed by : [facility], [address] [place] [phone] Anion gap 6 2 - 15 mmol/L [facility] Comment:Testing performed by : [facility], [address] [place] [phone] BUN 12 8 - 25 mg/dL [facility] Comment:Testing performed by : [facility], [address] [place] [phone] Creatinine 1.21 0.80 - 1.30 mg/dL [facility] Comment:Testing performed by : [facility], [address] [place] [phone] Glucose 94 70 - 199 mg/dL [facility] Comment: Interpretive Data Fasting glucose >/= 126 [...] was last revised 2017. Testing performed by: [facility], [address] [place] [phone] Calcium 9.7 8.5 - 10.3 mg/dL [facility] Comment:Testing performed by : [facility], [address] [place] [phone] Blood specimen (specimen) 09/01/2020 9:26 AM CDT 09/01/2020 9:27 AM CDT Brittany Lerner CHEMICAL ENGINEER LAB BLOOD ORDERABLES Final Result [facility] Department [place] [address] * Reticulocyte Count (09/01/2020 9:26 AM CDT) Pathologist [facility] Retics, absolute 0.046 0.020 - 0.087 M/cumm [facility] Comment:Testing performed by : [facility], [address] [place] [phone] Retics 1.06 0.50 - 1.80 % [facility] Comment:Testing performed by : [facility], [address] [place] [phone] Blood specimen (specimen) 09/01/2020 9:26 AM CDT 09/01/2020 9:27 AM CDT Brittany Lerner CHEMICAL ENGINEER LAB BLOOD ORDERABLES Final Result [facility] Department [place] [address] * (ABNORMAL) CBC with auto differential (09/01/2020 9:26 AM CDT) [facility] WBC 5.1 3.8 - 9.8 K/cumm [facility] Comment:Testing performed by : [facility], [address] [place] [phone] Hgb 12.3(L) 13.8 - 17.2 g/dL [facility] Comment:Testing performed by : [address] [phone] Hct 37.8(L) 40.7 - 50.3 % [facility] Comment:Testing performed by : [facility], [address] [place] [phone] Plt 290 140 - 440 K/cumm [facility] Comment:Testing performed by : [address] [phone] MPV 10.1 6.8 - 10.4 fL [facility] Comment:Testing performed by : [address] [phone] RBC 4.36(L) 4.50 - 5.70 M/cumm [facility] Comment:Testing performed by : [facility], [address] [place] [phone] MCV 86.8 80.0 - 97.6 fL [facility] Comment:Testing performed by : [facility], [address] [place] [phone] MCH 28.2 26.7 - 33.7 pg [facility] Comment:Testing performed by : [facility], [address] [place] [phone] MCHC 32.5(L) 32.7 - 35.5 g/dL [facility] Comment:Testing performed by : [facility], [address] [place] [phone] RDW CV 16.3(H) 11.8 - 14.6 % [facility] Comment:Testing performed by : [facility], [address] [place] [phone] NRBC abs 0.00 0.00 - 0.01 K/cumm [facility] Comment:Testing performed by : [facility], [address] [place] [phone] Blood specimen (specimen) 09/01/2020 9:26 AM CDT 09/01/2020 9:27 AM CDT Brittany Lerner CHEMICAL ENGINEER LAB BLOOD ORDERABLES Final Result [facility] Department [place] [address] * (ABNORMAL) Basic metabolic panel (09/03/2019 9:54 AM CDT) Sodium 143 135 - 145 mmol/L [facility] Comment:Testing performed by : [facility], [address] [place] [phone] Potassium, pl 5.1(H) 3.3 - 4.9 mmol/L [facility] Comment:Testing performed by : [address] [phone] Chloride 107 97 - 110 mmol/L [facility] Comment:Testing performed by : [facility], [address] [place] [phone] CO2 29 22 - 32 mmol/L [facility] Comment:Testing performed by : [facility], [address] [place] [phone] Anion gap 7 2 - 15 mmol/L [facility] Comment:Testing performed by : [facility], [address] [place] [phone] BUN 16 8 - 25 mg/dL [facility] Comment:Testing performed by : [facility], [address] [place] [phone] Creatinine 1.35(H) 0.80 - 1.30 mg/dL [facility] Comment:Testing performed by : [facility], [address] [place] [phone] Glucose 107 70 - 199 mg/dL [facility] Comment: Interpretive Data Fasting glucose >/= 126 [...] was last revised 2017. Testing performed by: [facility], [address] [place] [phone] Calcium 9.5 8.5 - 10.3 mg/dL [facility] Comment:Testing performed by : [facility], [address] [place] [phone] Blood specimen (specimen) 09/03/2019 9:54 AM CDT 09/03/2019 9:56 AM CDT Hillary Gmaa MD LAB BLOOD ORDERABLES Final Result [facility] Department [place] [address] * Reticulocyte Count (09/03/2019 9:54 AM CDT) [facility] Retics, absolute 0.040 0.020 - 0.087 M/cumm [facility] Comment:Testing performed by : [facility], [address] [place] [phone] Retics 0.85 0.50 - 1.80 % [facility] Comment:Testing performed by : [facility], [address] [place] [phone] Blood specimen (specimen) 09/03/2019 9:54 AM CDT 09/03/2019 9:56 AM CDT us Hillary Gama MD LAB BLOOD ORDERABLES Final Result [facility] Department [place] [address] * (ABNORMAL) CBC with auto differential (09/03/2019 9:54 AM CDT) [facility] WBC 5.2 3.8 - 9.8 K/cumm [facility] Comment:Testing performed by : [facility], [address] [place] [phone] Hgb 13.4(L) 13.8 - 17.2 g/dL [facility] Comment:Testing performed by : [address] [phone] Hct 40.9 40.7 - 50.3 % [facility] Comment:Testing performed by : [facility], [address] [place] [phone] Plt 289 140 - 440 K/cumm [facility] Comment:Testing performed by : [address] [phone] MPV 9.8 6.8 - 10.4 fL [facility] Comment:Testing performed by : [address] [phone] RBC 4.64 4.50 - 5.70 M/cumm [facility] Comment:Testing performed by : [facility], [address] [place] [phone] MCV 88.3 80.0 - 97.6 fL [facility] Comment:Testing performed by : [facility], [address] [place] [phone] MCH 28.8 26.7 - 33.7 pg [facility] Comment:Testing performed by : [facility], [address] [place] [phone] MCHC 32.6(L) 32.7 - 35.5 g/dL [facility] Comment:Testing performed by : [facility], [address] [place] [phone] RDW CV 14.6 11.8 - 14.6 % [facility] Comment:Testing performed by : [facility], [address] [place] [phone] NRBC abs 0.00 0.00 - 0.01 K/cumm [facility] Comment:Testing performed by : [facility], [address] [place], [place] [phone] Blood specimen (specimen) 09/03/2019 9:54 AM CDT 09/03/2019 9:56 AM CDT us Hillary Gama MD LAB BLOOD ORDERABLES Final Result Performing Organization Address City/State/[facility] Co de Phone Number [facility] Department [place] [address] documented in this encounter Visit Diagnoses Diagnosis 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)- Primary joint terminal attack controller current use of 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 documented in this encounter Orders Appointment Requests Count Last Ordered Date Fi rst Ordered Date ONCBCN CLINIC APPOINTMENT REQUEST 2 021 09/03/2019 ONCBCN LAB APPOINTMENT 1 09/01/2020 documented in this encounter Care Teams Remote Sensing Advisor Relationship Specialty Start Date End Date Timothy Banks MD PCP - General 07/08/16 documented as of this encounter
--- OUTSIDE RECORDS SUMMARY | 2024-04-09 17:30 | XMS_ITS | Encounter Summary ---
Author Organization [facility] Healthcare Address [address] [place] [address] Care Team Providers Care Puppet Master Name Role Phone Timothy Banks MD Primary Care Provider [phone] Encounter Details Date Type Department Care Team (Latest Contact Info) Description 08/31/2021 9:19 AM CDT - 08/31/2021 11:59 PM CDT Hospital Encounter [facility] Advanced Medicine [facility] Advanced Medicine ([facility]) [address] [place] [phone] 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); detention current use of 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 Discharge Disposition: Discharge to home or self care Social History Tobacco Use Types Packs/Day Years Used Date Smoking Tobacco: Never Smokeless Tobacco: Never Alcohol Use Standard Drinks/Week Comments Yes 0 (1 standard drink = 0.6 oz pur e alcohol) Sex and Gender Information Value Date Recorded Sex Assigned at Not on file 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 0 0 06/24/2016 hydrocortisone 2.5 % ointment 07/22/2021 dexlansoprazole (DEXILANT) 60 mg capsule take 1 capsule by oral route every day for 8 weeks 0 0 03/31/2016 09/02/19 22 Eliquis 5 mg tabletIndications:Ve nous 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 (VTE),intermediate frame tender current use of 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 TAKE 1 TABLET BY MOUTH TWICE DAILY 180 tablet 3 08/05/2021 01/22/20 22 furosemide (LASIX) 20 mg tabletIndications:Bi lateral lower extremity edema Take 1 tablet (20 mg total) by mouth daily as needed (swelling) 30 tablet 1 08/28/2018 01/23/20 24 LANSOPRAZOLE 3 MG/ML SUSP (PREVACID) 08/25/2021 01/23/20 24 multivitamin tablet 11/14/201601/21 22 documented as of this encounter Discharge Disposition Disposition Code Departure Means Destination Discharge to home or self care documented in this encounter Plan of Treatment Not on file documented as of this encounter Procedures Procedure Name Priority Date/Time Associated Diagnosis Comments EGFR Routine 08/31/2021 9:42 AM CDT 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) DIFFERENTIAL AUTO Routine 08/31/2021 9:4 2 AM CDT 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) CBC WITH AUTO DIFFERENTIAL Routine 08/31/2021 9:42 AM CDT 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) RETICULOCYTES Routine 08/31/2021 9:42 AM CDT 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) BASIC METABOLIC PANEL Routine 08/31/2021 9:42 AM CDT 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) documented in this encounter Results * (ABNORMAL) eGFR (08/31/2021 9:42 AM CDT) [facility] eGFR 51(L) 90 - 130 mL/min/1. 73 m2 [facility] Comment: Interpretive Data Reference Interval Normal ?>/= [...] was last reviewed 2021. Testing performed by: [facility], [address] [place] [phone] Blood 08/31/2021 9:42 AM CDT 08/31/2021 9:46 AM CDT us Hillary Gama MD LAB BLOOD ORDERABLES Final Result [facility] Department [place] [address] * (ABNORMAL) Differential, auto (08/31/2021 9:42 AM CDT) Neutrophil abs 4.0 1.8 - 6.6 K/cumm [facility] Comment:Testing performed by : [facility], [address] [place] [phone] Lymphocyte abs 0.8(L) 1.2 - 3.3 K/cumm [facility] Comment:Testing performed by : [facility], [address] [place] [phone] Monocyte abs 0.8 0.2 - 1.2 K/cumm [facility] Comment:Testing performed by : [facility], [address] [place] [phone] Eosinophil abs 0.1 0.0 - 0.5 K/cumm [facility] Comment:Testing performed by : [facility], [address] [place] [phone] Basophil abs 0.0 0.0 - 0.2 K/cumm [facility] Comment:Testing performed by : [facility], [address] [place] [phone] Neutrophil pct 70.4 % [facility] Comment: Interpretive Data Percent cell count reference ranges are not reported, since discordance with absolute values may lead to misinterpretation of CBC data. Current Interpretive Data was last revised on 2017. Testing performed by: [facility], [address] [place] [phone] Lymphocyte pct 13.3 % [facility] Comment: Interpretive Data Percent cell count reference ranges are not reported, since discordance with absolute values may lead to misinterpretation of CBC data. Current Interpretive Data was last revised on 2017. Testing performed by: [facility], [address] [place] [phone] Monocyte pct 14.8 % [facility] Comment:Testing performed by : [facility], [address] [place] [phone] Eosinophil pct 0.9 % [facility] Comment:Testing performed by : [facility], [address] [place] [phone] Basophil pct 0.6 % [facility] Comment:Testing performed by : [facility], [address] [place] [phone] Blood 08/31/2021 9:42 AM CDT 08/31/2021 9:46 AM CDT Hillary Gama MD LAB BLOOD ORDERABLES Final Result [facility] Department [place] [address] * (ABNORMAL) CBC with auto differential (08/31/2021 9:42 AM CDT) WBC 5.7 3.8 - 9.8 K/cumm [facility] Comment:Testing performed by : [facility], [address] [place] [phone] Hgb 11.2(L) 13.8 - 17.2 g/dL [facility] Comment:Testing performed by : [facility], [address] [place] [phone] Hct 35.2(L) 40.7 - 50.3 % [facility] Comment:Testing performed by : [facility], [address] [place] [phone] Plt 299 140 - 440 K/cumm [facility] Comment:Testing performed by : [facility], [address] [place] [phone] MPV 9.9 6.8 - 10.4 fL [facility] Comment:Testing performed by : [address] [phone] RBC 4.21(L) 4.50 - 5.70 M/cumm [facility] Comment:Testing performed by : [address] [phone] MCV 83.8 80.0 - 97.6 fL [facility] Comment:Testing performed by : [facility], [address] [place] [phone] MCH 26.5(L) 26.7 - 33.7 pg [facility] Comment:Testing performed by : [facility], [address] [place] [phone] MCHC 31.7(L) 32.7 - 35.5 g/dL [facility] Comment:Testing performed by : [address] [phone] RDW CV 16.8(H) 11.8 - 14.6 % [facility] Comment:Testing performed by : [facility], [address] [place] [phone] NRBC abs 0.00 0.00 - 0.01 K/cumm [facility] Comment:Testing performed by : [facility], [address] [place] [phone] Blood 08/31/2021 9:42 AM CDT 08/31/2021 9:46 AM CDT Hillary Gama MD LAB BLOOD ORDERABLES Final Result [facility] Department [place] [address] * (ABNORMAL) Basic metabolic panel (08/31/2021 9:42 AM CDT) Sodium 141 135 - 145 mmol/L [facility] Comment:Testing performed by : [facility], [address] [place] [phone] Potassium, pl 4.8 3.3 - 4.9 mmol/L [facility] Comment:Testing performed by : [facility], [address] [place] [phone] Chloride 104 97 - 110 mmol/L [facility] Comment:Testing performed by : [facility], [address] [place] [phone] CO2 28 22 - 32 mmol/L [facility] Comment:Testing performed by : [facility], [address] [place] [phone] Anion gap 9 2 - 15 mmol/L [facility] Comment:Testing performed by : [facility], [address] [place] [phone] BUN 14 8 - 25 mg/dL [facility] Comment:Testing performed by : [address] [phone] Creatinine 1.43(H) 0.80 - 1.30 mg/dL [facility] Comment:Testing performed by : [facility], [address] [place] [phone] Glucose 86 70 - 199 mg/dL [facility] Comment: Interpretive Data Fasting glucose >/= 126 [...] was last revised 2017. Testing performed by: [facility], [address] [place] [phone] Calcium 9.5 8.5 - 10.3 mg/dL [facility] Comment:Testing performed by : [facility], [address] [place] [phone] Blood 08/31/2021 9:42 AM CDT 08/31/2021 9:46 AM CDT Hillary Gama MD LAB BLOOD ORDERABLES Final Result Performing Organization Address City/[facility] Co de Phone Number [facility] Department [place] [address] * Reticulocyte Count (08/31/2021 9:42 AM CDT) Retics, absolute 0.051 0.020 - 0.087 M/cumm [facility] Comment:Testing performed by : [facility], [address] [place] [phone] Retics 1.21 0.50 - 1.80 % [facility] Comment:Testing performed by : [facility], [address] [place] [phone] Blood 08/31/2021 9:42 AM CDT 08/31/2021 9:46 AM CDT Hillary Gama MD LAB BLOOD ORDERABLES Final Result Performing Organization Address [facility]/State/ZIP Co de Phone Number [facility] [place] [address] documented in this encounter Visit Diagnoses Diagnosis 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) intermediate frame tender current use of 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 documented in this encounter Care Teams Puppet Master Relationship Specialty Start Date End Date Timothy Banks MD PCP - General 07/08/16 documented as of this encounter
--- OUTSIDE RECORDS SUMMARY | 2024-04-09 17:30 | XMS_ITS | Encounter Summary ---
Author Organization 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
--- OUTSIDE RECORDS SUMMARY | 2024-04-09 17:30 | XMS_ITS | Encounter Summary ---
Author Organization [facility] Address [address] [place] [address] Care Team Providers Care Behavioral Health Therapist Name Role Phone Timothy Banks MD Primary Care Provider [phone] Reason for Visit * Reason Comments Follow-up 6 mo f/u on RBBB, VT E, SVT, LVH Encounter Details Date Type Department Care Team (Latest Contact Info) Description 07/20/2020 9:30 AM CDT Office Visit [facility] Cardiology [address] [place] [address] Jayro Kaminski MD [facility] [place] [phone] longterm current use of 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 (Primary Dx); 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); Hypertensive left ventricular hypertrophy, without heart failure; Cardiac arrhythmia, unspecified cardiac arrhythmia type; RBBB; History of COVID-19 Social History Tobacco Use Types Packs/Day Years Used Date Smoking Tobacco: Never Smokeless Tobacco: Never Alcohol Use Standard Drinks/Week Comments Yes 0 (1 standard drink = 0.6 oz pur e alcohol) Sex and Gender Information Value Date Recorded Sex Assigned at Not on file 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 Gender Identity Male 01/12/2020 7:43 PM CDT Sexual Orientation Straight 01/12/2020 7: 43 PM CDT documented as of this encounter Last Filed Vital Signs Vital Sign Reading Time Taken Comments Blood Pressure 138/88 07/20/2020 9:34 AM CDT Pulse 88 07/20/2020 9:34 AM CDT Temperature - - Respiratory Rate - - Oxygen Saturation 97% 07/20/2020 9:34 AM CDT Inhaled Oxygen Concentration - - Weight 116.1 kg (256 lb) 07/20/2020 9:34 AM CDT Height 185.4 cm (6' 1 ) 07/20/2020 9:34 AM CDT Body Mass Index 33.78 07/20/2020 9:34 AM CDT documented in this encounter Progress Notes * Jayro Kaminski MD - 07/20/2020 9:30 AM CDT [facility] DATE OF VISIT: 07/20/2020 CHIEF COMPLAINT Chief Complaint Patient presents with ??? Follow-up 6 mo f/u on RBBB, VTE, SVT, LVH HPI Russ Kern is a 74 y.o. male with arrhythmia and PVCs. He was seen because of an upper respiratory tract infection and bronchitis by his primary care physician. Nurse practitioner noticed an irregular heartbeat an EKG showed right bundle branch block with PVCs. This led him to have an echocardiogram at [facility] which was normal except for moderate LVH. He did have mild left atrial enlargement. Mild mitral, aortic and tricuspid regurgitation. Diastolic dysfunction was present. He does have a history of pulmonary embolism, DVT and [place] filter. 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 He is on chronic anticoagulation. Previous Holter monitoring did reveal moderate frequency ventricular ectopy and [...] dyspnea orthopnea, edema or palpitations Follow-up note 07/20/2020: He denies any chest pain, shortness breath, syncope, presyncope, paroxysmal nocturnal dyspnea, orthopnea, unusual edema or palpitations. MEDICAL HISTORY Past Medical History: Diagnosis Date ??? HX OTHER MEDICAL recurrent DVT, gerd, s/p hiatal hernia [facility], ; Comments: [facility] 03/31/2016 - ??? HX OTHER MEDICAL CKD; Comments: [facility] 03/31/2016 - Social History Tobacco Use ??? Smoking status: Never Smoker ??? Smokeless tobacco: Never Used Substance Use Topics ??? Alcohol use: Yes ??? Drug use: No No family history on file. MEDICATIONS Home Medications ALBUTEROL HFA (PROAIR HFA) 90 MCG/ACTUATION INHALER inhale 2 puff by inhalation route every 4 - 6 hours as needed BIMATOPROST (LUMIGAN) 0.01 % OPHTHALMIC DROPS Administer 1 drop into both eyes nightly BUDESONIDE-FORMOTEROL (SYMBICORT) 160-4.5 MCG/ACTUATION INHALER inhale 2 puff by inhalation route every day in the morning and evening CHOLECALCIFEROL (VITAMIN D3) 1,000 UNIT CAPSULE take 1 by Oral route every day DEXLANSOPRAZOLE (DEXILANT) 60 MG CAPSULE take 1 capsule by oral route every day for 8 weeks ELIQUIS 5 MG TABLET TAKE 1 TABLET BY MOUTH TWO TIMES DAILY FOLIC ACID 0.8 MG CAPSULE 0.8 mg. FUROSEMIDE (LASIX) 20 MG TABLET Take 1 tablet (20 mg total) by mouth daily as needed (swelling) MULTIVITAMIN (MULTIPLE VITAMINS) TABLET ALLERGIES No Known Allergies REVIEW OF SYSTEMS [...] for environmental allergies. PHYSICAL EXAM Blood pressure 138/88, pulse 88, height 185.4 cm (6' 1 ), weight 116.1 kg (256 lb), SpO2 97 %. Body mass index is 33.78 kg/m??. Physical Exam Constitutional: He is oriented to person, place, and time. He appears well-nourished. HENT: Head: Normocephalic and atraumatic. Nose: Nose normal. Eyes: Conjunctivae and EOM are normal. No scleral icterus. Cardiovascular: Normal rate, regular rhythm, normal heart sounds and intact distal pulses. Exam reveals no gallop and no friction rub. No murmur heard. Pulmonary/Chest: Effort normal and breath sounds normal. No respiratory distress. He has no wheezes. He has no rales. He exhibits no tenderness. Abdominal: Soft. Bowel sounds are normal. He exhibits no distension. There is no abdominal tenderness. Musculoskeletal: General: Edema present. Normal range of motion. Cervical back: Neck supple. Comments: Varicose veins Trivial bilateral lower extremity edema Neurological: He is alert and oriented to person, place, and time. Skin: Skin is warm and dry. Psychiatric: He has a normal mood and affect. LABS AND OTHER DIAGNOSTIC TESTS Lab Results Component Value Date WBC 5.2 09/03/2019 HGB 13.4 (L) 09/03/2019 HCT 40.9 09/03/2019 MCV 88.3 09/03/2019 Chemistry Component Value Date/Time CO2 29 09/03/2019 0954 CREATININE 1.35 (H) 09/03/2019 0954 Component Value Date/Time CALCIUM 9.5 09/03/2019 0954 BILITOT Negative 01/25/2014 0516 No results found [...] Moderate but no evidence of failure 4. longterm current use of 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 No bleeding problems 5. Cardiac arrhythmia, unspecified cardiac arrhythmia type Low-frequency frequency ventricular ectopy. High frequency supraventricular ectopy and brief atrialruns. Asymptomatic however. 6. RBBB No evidence of higher degree block 7. SVT: No sustained symptoms 8. Obstructive sleep apnea: on CPAP 9. History of COVID -19 PLAN/RECOMMENDATIONS He is doing well and is stable at this point. 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
--- OUTSIDE RECORDS SUMMARY | 2024-04-09 17:30 | XMS_ITS | Encounter Summary ---
Author Organization [facility] Address [address] [place] [address] Care Team Providers Care Cv Rn Name Role Phone Timothy Banks MD Primary Care Provider Encounter Details Date Type Department Care Team (Late st Contact Info) Description 03/16/2018 Telephone [facility] [address] [address] [address] [place] [address] Jayro Kaminski MD [address] [phone] Social History Tobacco Use Types Packs/Day Years Used Date Smoking Tobacco: Never Smokeless Tobacco: Never Alcohol Use Standard Drinks/Week Comments Yes 0 (1 standard drink = 0.6 oz pur e alcohol) Sex and Gender Information Value Date Recorded Sex Assigned at Not on file 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 HANT TAILOR * Telephone Encounter - Lakshmi Avelar - 03/19/2018 12:13 PM MERCHANT TAILOR Pt says its OK to forward info to Dr. Martinez. HANT TAILOR * Telephone Encounter - Lorraine Levine RN - 03/16/2018 3:17 PM MERCHANT TAILOR Per Dr Kaminski, Moderate sleep apnea noted. ??Please refer to sleep medicine for further treatment and evaluation. ??This can either be with Dr. Martinez here or Dr. Mustafa through [facility] for pt to call with OK to forward info to Dr Martinez since pt lives in [place]. HANT TAILOR documented in this encounter Plan of Treatment Not on file documented as of this encounter Visit Diagnoses Not on filedocumented in this encounter Care Teams Cv Rn Relationship Specialty Start Date End Date Timothy Banks MD PCP - General 07/08/16 documented as of this encounter
--- OUTSIDE RECORDS SUMMARY | 2024-04-09 17:30 | XMS_ITS | Encounter Summary ---
Author Organization [facility] Address [address] [facility] [address] [place] [address] Phone Care Team Providers Care Fan Engine Engineer Name Role Phone Timothy Banks MD Primary Care Provider [phone] Reason for Visit * Oncology (Routine) - Authorized Specialty Diagnoses / Procedures Referred By Contshakila t Referred To Contact Oncology Diagnoses 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) Hillary Gama MD [address] [place] [address] Phone: tel: fax: Hillary Gama MD [address] [address] Phone: tel: fax: Referral ID Status Reason Start Date Expiration Date Visits Requested Visits Authorized [id number] Authorized Specialty Services Required 04/10/2017 04/09/2024 99 99 Encounter Details Date Type Department Care Team (Latest Contact Info) Description 09/01/2020 10:15 AM CDT Office Visit [facility] [address] [facility] Advanced Medicine 7th [place] [address] [place] [id number] Hillary Gama MD [address] [place] [address] 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); correction current use of 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 Social History Tobacco Use Types Packs/Day Years Used Date Smoking Tobacco: Never Smokeless Tobacco: Never Alcohol Use Standard Drinks/Week Comments Yes 0 (1 standard drink = 0.6 oz pur e alcohol) Sex and Gender Information Value Date Recorded Sex Assigned at Not on file Legal Sex Male 4:19 AM CLIN ASST Gender Identity Male 01/12/2020 7:43 PM CDT Sexual Orientation Straight 01/12/2020 7: 43 PM CDT documented as of this encounter Last Filed Vital Signs Vital Sign Reading Time Taken Comments Blood Pressure 146/85 09/01/2020 10:21 AM CDT Pulse 73 09/01/2020 10:21 AM CDT Temperature 36.6 ??C (97.8 ??F) 09/01/2020 10:21 AM C DT Respiratory Rate 18 09/01/2020 10:21 AM CDT Oxygen Saturation 98% 09/01/2020 10:21 AM CDT Inhaled Oxygen Concentration - - Weight 115.7 kg (255 lb) 09/01/2020 10:21 AM CDT Height - - Body Mass Index 33.64 07/20/2020 9:34 AM CDT documented in this encounter Progress Notes * Brittany Lerner, JOSÉ MIGUEL - 09/01/2020 10:15 AM CDT PATIENT NAME: Russ Kern : 1945 DATE OF SERVICE: 09/01/2020 Diagnosis: Recurrent thromboembolic disease ?? Current Treatment: 1.?2005, DVT/PE following hiatal repair status post Archer filter placement. ??Warfarin started for 6 months. ??2.?2005, right lower extremity DVT after warfarin discontinuation. ??Warfarin restarted. ??3.?2011, left lower extremity DVT occurred after re-initiation of warfarin after holding 5 days for colonoscopy. ??4.?2017, right lower extremity DVT occurred following re-initiation of warfarin after holding for a small bowel obstruction. 5. Currently on Eliquis 5mg BID. HPI: Mr. Kern is a 74 y.o.year old male who presents??for follow up??of recurrent thromboembolic disease. ??To review, Mr. Kern??states he initially developed a left lower extremity DVT and pulmonary embolism in 2004 following hiatal hernia repair. ??This required a Archer filter placement, as well as groin venous [...] a recurrent clot in the right lower extremity.?He??rep orted??compliance with warfarin and that his INR was??generally [...] to be with her after his appointment. ALLERGIES: No Known Allergies CURRENT MEDICATION: Current [...] tablet, TAKE 1 TABLET BY MOUTH TWICE DAILY, Disp: 180 tablet, Rfl: 3 ??? [...] No ??? Sexual activity: Not on file Other Topics Concern ??? Not on file Social History Narrative ??? Not on file Social Determinants of Health Financial Resource Strain: ??? Difficulty of Paying Living Expenses: Food Insecurity: ??? Worried About Running Out of Food in the Last Year: ??? Ran Out of Food in the Last Year: Transportation Needs: ??? Lack of Transportation (Medical): ??? Lack of Transportation (Non-Medical): Physical Activity: ??? Days of Exercise per Week: ??? Minutes of Exercise per Session: Stress: ??? Feeling of Stress : Social Connections: ??? Frequency of Communication with Friends and Family: ??? Frequency of Social Gatherings with Friends and Family: ??? Attends Jainism Services: ??? Active Member of Clubs or Organizations: ??? Attends Club or Organization Meetings: ??? Marital Status: Intimate Partner Violence: ??? Fear of Current or Ex-Partner: ??? Emotionally Abused: ??? Physically Abused: ??? Sexually Abused: VITALS: Vitals BP 146/85 (BP Location: Right arm) Pulse 73 Temp 36.6 ??C (97.8 ??F) (Transdermal) Resp 18 Wt 115.7 kg (255 lb) SpO2 98% BMI 33.64 kg/m?? PHYSICAL EXAM: Physical Exam Vitals reviewed. Constitutional: Appearance: Normal appearance. HENT: Head: Normocephalic and atraumatic. Eyes: Conjunctiva/sclera: Conjunctivae normal. Pupils: Pupils are [...] Behavior: Behavior normal. LABORATORY DATA: Lab on 09/01/2020 Component Date Value Ref Range Status ??? Sodium 09/01/2020 143 135 - 145 mmol/L Final ??? Potassium, pl 09/01/2020 4.8 3.3 - 4.9 mmol/L Final ??? Chloride 09/01/2020 107 97 - 110 mmol/L Final ??? CO2 09/01/2020 30 22 - 32 mmol/L Final ??? Anion gap 09/01/2020 6 2 - 15 mmol/L Final ??? BUN 09/01/2020 12 8 - 25 mg/dL Final ??? Creatinine 09/01/2020 1.21 0.80 - 1.30 mg/dL Final ??? Glucose 09/01/2020 94 70 - 199 mg/dL Final ??? Calcium 09/01/2020 9.7 8.5 - 10.3 mg/dL Final ??? Retics, absolute 09/01/2020 0.046 0.020 - 0.087 M/cumm Final ??? Retics 09/01/2020 1.06 0.50 - 1.80 % Final ??? WBC 09/01/2020 5.1 3.8 - 9.8 K/cumm Final ??? Hgb 09/01/2020 12.3* 13.8 - 17.2 g/dL Final ??? Hct 09/01/2020 37.8* 40.7 - 50.3 % Final ??? Plt 09/01/2020 290 140 - 440 K/cumm Final ??? MPV 09/01/2020 10.1 6.8 - 10.4 fL Final ??? RBC 09/01/2020 4.36* 4.50 - 5.70 M/cumm Final ??? MCV 09/01/2020 86.8 80.0 - 97.6 fL Final ??? MCH 09/01/2020 28.2 26.7 - 33.7 pg Final ??? MCHC 09/01/2020 32.5* 32.7 - 35.5 g/dL Final ??? RDW CV 09/01/2020 16.3* 11.8 - 14.6 % Final ??? NRBC abs 09/01/2020 0.00 0.00 - 0.01 K/cumm Final ??? Neutrophil abs 09/01/2020 2.7 1.8 - 6.6 K/cumm Final ??? Lymphocyte abs 09/01/2020 1.1* 1.2 - 3.3 K/cumm Final ??? Monocyte abs 09/01/2020 1.1 0.2 - 1.2 K/cumm Final ??? Eosinophil abs 09/01/2020 0.2 0.0 - 0.5 K/cumm Final ??? Basophil abs 09/01/2020 0.1 0.0 - 0.2 K/cumm Final ??? Neutrophil pct 09/01/2020 52.7 % Final ??? Lymphocyte pct 09/01/2020 22.1 % Final ??? Monocyte pct 09/01/2020 20.9 % Final ??? Eosinophil pct 09/01/2020 3.2 % Final ??? Basophil pct 09/01/2020 1.1 % Final ASSESSMENT AND PLAN: Patient Active Problem List Diagnosis ??? Ventricular premature beats ??? 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 RBBB ??? 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) ??? Hypertensive left ventricular hypertrophy ??? LVH (left ventricular hypertrophy) ??? Lightheadedness ??? Cardiac arrhythmia ??? Chronic renal insufficiency, stage III (moderate) ??? Snoring ??? Hypersomnolence ??? Tiredness ??? Other fatigue ??? QAMAR (obstructive sleep apnea) ??? Bilateral lower extremity edema ??? History of COVID-19 1.?Thromboembolic disease.?Mr. Kern is a 74 year old male with history of thromboembolic [...] colonoscopy last year with a Lovenox bridge and resumption of Eliquis after the procedure. We would consider this for any future surgeries or procedures. He knows to call, but does not have anything planned. He will otherwise continue Eliquis and return??to clinic in??12??months for continued evaluation, as he sees other specialists in the interim and has done very well on Eliquis now for three years. ?? DISPOSITION: The patient will return follow up in one year. They know to contact our office with any questions or concerns prior to the next follow up appointment. 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
--- OUTSIDE RECORDS SUMMARY | 2024-04-09 17:30 | XMS_ITS | Encounter Summary ---
Author Organization [facility] Care Team Providers Care Weight Recorder Name Role Phone Timothy Banks MD Primary Care Provider [phone] Encounter Details Date Type Department Care Team (Latest Contact Info) Description 08/28/2018 Travel Social History Tobacco Use Types Packs/Day Years Used Date Smoking Tobacco: Never Smokeless Tobacco: Never Alcohol Use Standard Drinks/Week Comments Yes 0 (1 standard drink = 0.6 oz pur e alcohol) Sex and Gender Information Value Date Recorded Sex Assigned at Not on file Legal Sex Male 4:19 AM LABOR RELATIONS TEACHER Gender Identity Male 01/12/2020 7:43 PM CDT Sexual Orientation Straight 01/12/2020 7: 43 PM CDT documented as of this encounter Plan of Treatment Not on file documented as of this encounter Visit Diagnoses Not on filedocumented in this encounter Care Teams Weight Recorder Relationship Specialty Start Date End Date Timothy Banks MD PCP - General 07/08/16 documented as of this encounter
--- OUTSIDE RECORDS SUMMARY | 2024-04-09 17:30 | XMS_ITS | Encounter Summary ---
Author Organization [facility] Address [address] [place] [address] Care Team Providers Care Button Pusher Name Role Phone Timothy Banks MD Primary Care Provider [phone] Reason for Visit * Cardiology (Routine) - Closed Specialty Diagnoses / Procedures Referred By Contac t Referred To Contact Diagnoses Cardiac arrhythmia, unspecified cardiac arrhythmia type RBBB LVH (left ventricular hypertrophy) Procedures Transthoracic Echo Complete W Doppler/CF Veena Malone MD [address] [address] Phone: tel: fax: [facility] Referral ID Status Reason Start Date Expiration Date Visits Re quested Visits Authorized [id number] Closed 01/13/2020 02/11/2021 1 1 Encounter Details Date Type Department Care Team (Latest Contact Info) Description 01/30/2020 10:15 AM CDT Ancillary Procedure [facility] Cardiology [address] [facility] [address] [place] [address] Cardiac arrhythmia, unspecified cardiac arrhythmia type; RBBB; LVH (left ventricular hypertrophy) Social History Tobacco Use Types Packs/Day Years Used Date Smoking Tobacco: Never Smokeless Tobacco: Never Alcohol Use Standard Drinks/Week Comments Yes 0 (1 standard drink = 0.6 oz pur e alcohol) Sex and Gender Information Value Date Recorded Sex Assigned at Not on file Legal Sex Male 4:19 AM DNA SEQUENCING ASSOCIATE Gender Identity Male 01/12/2020 7:43 PM CDT Sexual Orientation Straight 01/12/2020 7: 43 PM CDT documented as of this encounter Last Filed Vital Signs Vital Sign Reading Time Taken Comments Blood Pressure - - Pulse - - Temperature 36.6 ??C (97.8 ??F) 01/30/2020 10:08 AM C DT Respiratory Rate - - Oxygen Saturation - - Inhaled Oxygen Concentration - - Weight - - Height - - Body Mass Index - - documented in this encounter Plan of Treatment Not on file documented as of this encounter Procedures Procedure Name Priority Date/Time Associated Diagnosis Comments TRANSTHORACIC ECHO (TTE) COMPLETE W DOPPLER/CF W CONTRAST Routine 01/30/2020 11:07 AM CDT Cardiac arrhythmia, unspecified cardiac arrhythmia type RBBB LVH (left ventricular hypertrophy) documented in this encounter Results * TRANSTHORACIC ECHO (TTE) COMPLETE W DOPPLER/CF W CONTRAST (01/30/2020 11:07 AM CDT) Anatomical Region Laterality Modality Ultrasound 01/30/2020 10:0 0 AM CDT Narrative 01/30/2020 5:46 PM CDT [facility] Cardiology [address] [facility] [address] [address] [address] [facility] [address], [place] [address] P:[phone] P:[phone] Echocardiographic Report Patient Name: NADEEM AMAYA : 4 Study Date: 01/30/2020 10:00:19 AM Gender: M Tech: Location: [place] Ref.Provider: CHRISTOPHER Height(Cm): 185 BSA: 2.39 Weight(Kg): 116.57 Heart Rate: 79 BP: 157/76 Quality: Definity contrast agent used to enhance endocardial border definition Order Provider: VEENA MALONE Procedures: Echocardiographic Report: Transthoracic echocardiogram with complete 2D, M-Mode, color Doppler examination and Definity contrast. Indications: Cardiac Arrhythmia, RBBB, and Left Ventricular Hypertrophy. Measurements: 2D/M Mode ?Doppler ? Measurement ?Value ?Normal Range ? Measurement ?Value ?Normal Range ? EF Mod ? 77 ?AV Mean PG ? 4 ?mmHg ? EF MM ?80 ? [ 55 - 70 ] % ?AV Peak Regan ?1.52 ? m/s ? LVIDd MM ? 4.67 ? [ 3.90 - 5.30 ] cm ? AV Peak PG ? 9 ?mmHg ? LVIDs MM ? 2.42 ? [ 2.30 - 3.90 ] cm ? AV VTI ? 0.29 ? cm ? LVPWd MM ? 1.67 ? [ 0.60 - 1.00 ] cm ? LVOT Peak Regan ?1.44 ? [ 0.70 - 1.10 ] m/s ? IVSd MM ?1.58 ? [ 0.60 - 0.90 ] cm ? LVOT VTI ? 0.30 ? cm ? LA Dimension MM ?6.00 ? [ 2.70 - 3.80 ] cm ? MV E Peak Regan ?0.76 ? [ 0.60 - 1.30 ] m/s ? AoR Diam MM ?3.75 ? [ 2.60 - 3.70 ] cm ? MV A Peak Regan ?0.64 ? [ 0.40 - 0.80 ] m/s ? LA Volume Index ?30.00 ?[ 16.00 - 28.00 ] cc/m2 ?MV Decel Time ?200 ?[ 150 - 200 ] msec ? ACS MM ? 2.00 ? cm ? PV Peak Regan ?0.93 ? [ 0.40 - 0.80 ] m/s ? TR Peak Regan ?2.38 ? [ 0.40 - 0.80 ] m/s ? TR Peak PG ? 23 ? mmHg ? RVSP ? 31.00 ?mmHg ? E' ? 0.09 ? E/E' ? 8 ? Findings: Interpretation Site: Exam was interpreted at [facility]. Left Ventricle: Normal left ventricular size. Definity contrast agent used to visually enhance endocardial wall motion and contractility. Lot Number: [id number]. Hyperdynamic left ventricular function. No focal wall motion abnormalities. Normal left ventricular diastolic function. Ejection fraction is measured at 77 %. Right Ventricle: Normal right ventricular size. Left Atrium: There is moderate enlargement of left atrium. Right Atrium: The right atrium is normal in size. Atrial Septum: Normal atrial septum. Mitral Valve: Normal appearance of the mitral valve. Mild mitral valve regurgitation. Aortic Valve: Normal appearance of the aortic valve. Trace aortic valve regurgitation. Tricuspid Valve: Normal appearance of the tricuspid valve. Estimated peak RVSP is 31 mmHg. Trivial regurgitation in the tricuspid valve. Pulmonic Valve: Pulmonic valve not well visualized. Pericardium: Normal pericardium with no significant pericardial effusion. Aorta: Normal aortic root. IVC: Normal size and normal respiratory collapse consistent with normal right atrial pressure (<5 mmHg). Pulmonary Artery: Normal pulmonary artery size. Conclusions: Normal left ventricular size. Definity contrast agent [...] the aortic valve. Trace aortic valve regurgitation. Electronically Signed By: Reggie Jackson MD, [facility] 2020-01-30 17:46:40 CDT Procedure Note Reggie Jackson MD - 01/30/2020 [facility] Cardiology [address] [facility] [address] [address] [address] [facility] [address], [place] [address] P:[phone] P:[phone] Echocardiographic Report Patient Name: NADEEM AMAYAPatient ID: [id number] : [id number] Date: 01/30/2020 10:00:19 AM Gender: MAccession #: [id number] Tech: GMLocation: [place] Ref.Provider: Fayight(Cm): 185 BSA: 2.39Weight(Kg): 116.57 Heart Rate: 79BP: 157/76 Quality: Definity contrast agent used to enhance endocardial borderdefinitionOrder Provider: VEENA MALONE Procedures: Echocardiographic Report: Transthoracic echocardiogram with complete 2D, M-Mode, color Dopplerexamination and Definity contrast. Indications: Cardiac Arrhythmia, RBBB, and Left Ventricular Hypertrophy. Measurements: 2D/M Mode Doppler Measurement Value Normal Range MeasurementValue Normal Range EF Mod 77 AV Mean PG 4mmHg EF MM 80 [ 55 - 70 ] % AV Peak Vel1.52 m/s LVIDd MM 4.67 [ 3.90 - 5.30 ] cm AV Peak PG 9mmHg LVIDs MM 2.42 [ 2.30 - 3.90 ] cm AV VTI0.29 cm LVPWd MM 1.67 [ 0.60 - 1.00 ] cm LVOT Peak Vel1.44 [ 0.70 - 1.10 ] m/s IVSd MM 1.58 [ 0.60 - 0.90 ] cm LVOT VTI0.30 cm LA Dimension MM 6.00 [ 2.70 - 3.80 ] cm MV E Peak Vel0.76 [ 0.60 - 1.30 ] m/s AoR Diam MM 3.75 [ 2.60 - 3.70 ] cm MV A Peak Vel0.64 [ 0.40 - 0.80 ] m/s LA Volume Index 30.00 [ 16.00 - 28.00 ] cc/m2 MV Decel Uius491 [ 150 - 200 ] msec ACS MM 2.00 cm PV Peak Vel0.93 [ 0.40 - 0.80 ] m/s TR Peak Vel2.38 [ 0.40 - 0.80 ] m/s TR Peak PG 23mmHg RVSP31.00 mmHg E'0.09 E/E' 8 Findings: Interpretation Site: Exam was interpreted at [facility]. Left Ventricle: Normal left ventricular size. Definity contrast agent used to visuallyenhance endocardial wall motion and contractility. Lot Number: [id number]. Hyperdynamicleft ventricular function. No focal wall motion abnormalities. Normal leftventricular diastolic function. Ejection fraction is measured at 77 %. Right Ventricle: Normal right ventricular size. Left Atrium: There is moderate enlargement of left atrium. Right Atrium: The right atrium is normal in size. Atrial Septum: Normal atrial septum. Mitral Valve: Normal appearance of the mitral valve. Mild mitral valve regurgitation. Aortic Valve: Normal appearance of the aortic valve. Trace aortic valve regurgitation. Tricuspid Valve: Normal appearance of the tricuspid valve. Estimated peak RVSP is 31 mmHg.Trivial regurgitation in the tricuspid valve. Pulmonic Valve: Pulmonic valve not well visualized. Pericardium: Normal pericardium with no significant pericardial effusion. Aorta: Normal aortic root. IVC: Normal size and normal respiratory collapse consistent with normal rightatrial pressure (<5 mmHg). Pulmonary Artery: Normal pulmonary artery size. Conclusions: Normal left ventricular size. Definity contrast agent used to visuallyenhance endocardial wall motion and contractility. Lot Number: [id number]. Hyperdynamicleft ventricular function. No focal wall motion abnormalities. Normal leftventricular diastolic function. Ejection fraction is measured at 77 %. There is moderate enlargement of left atrium. Normal appearance of the mitral valve. Mild mitral valve regurgitation. Normal appearance of the aortic valve. Trace aortic valve regurgitation. Electronically Signed By: Reggie Jackson MD, [facility] 2020-01-30 17:46:40 CDT Veena Malone MD CV ECHO PROCEDURES Final Result documented in this encounter Visit Diagnoses Diagnosis Cardiac arrhythmia, unspecified cardiac arrhythmia type RBBB LVH (left ventricular hypertrophy) Cardiomegaly documented in this encounter Administered Medications Inactive Administered Medications - up to 3 most recent administrations Medication Order MAR Action Action Date Dose Rate Site perflutren lipid (DEFINITY) 1.5 mL in sodium chloride 0.9% 10 mL syringe 1-10 mL, intravenous, Once in imaging, contrast, Starting on Yas 01/30/20 at 1043, For 1 dose Given 01/30/2020 2:46 PM CDT 1 mL documented in this encounter Care Teams Button Pusher Relationship Specialty Start Date End Date Timothy Banks MD PCP - General 07/08/16 documented as of this encounter
--- OUTSIDE RECORDS SUMMARY | 2024-04-09 17:30 | XMS_ITS | Encounter Summary ---
Author Organization [facility] Address [address] [place] [address] Phone Care Team Providers Care Studio Coordinator Name Role Phone Timothy Banks MD Primary Care Provider Encounter Details Date Type Department Care Team (Late st Contact Info) Description 08/31/2017 Orders Only [facility] Hematology [address] [facility] Advanced Medicine 7th [place] [address] [place] [address] Hillary Gama MD [address] [place] [address] Social History Tobacco Use Types Packs/Day Years Used Date Smoking Tobacco: Never Smokeless Tobacco: Never Alcohol Use Standard Drinks/Week Comments Yes 0 (1 standard drink = 0.6 oz pur e alcohol) Sex and Gender Information Value Date Recorded Sex Assigned at Not on file Legal Sex Male 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
--- OUTSIDE RECORDS SUMMARY | 2024-04-09 17:30 | XMS_ITS | Encounter Summary ---
Author Organization [facility] Address [address] [place] [address] Care Team Providers Care Control Systems Engineer Name Role Phone Timothy Banks MD Primary Care Provider [phone] Reason for Visit * Reason Comments Follow-up 2-3 mo f/u on VTE, L VH, SVT, RBBB, QAMAR Encounter Details Date Type Department Care Team (Latest Contact Info) Description 11/20/2018 11:15 AM CDT Office Visit [facility] [address] [place] [address] Jayro Kaminski MD [facility] [id number] half[place]way current use of 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 (Primary Dx); Bilateral lower extremity edema; QAMAR (obstructive sleep apnea); RBBB; Left ventricular hypertrophy Social History Tobacco Use Types Packs/Day Years Used Date Smoking Tobacco: Never Smokeless Tobacco: Never Alcohol Use Standard Drinks/Week Comments Yes 0 (1 standard drink = 0.6 oz pur e alcohol) Sex and Gender Information Value Date Recorded Sex Assigned at Not on file Legal Sex Male 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 Gender Identity Male 01/12/2020 7:43 PM CDT Sexual Orientation Straight 01/12/2020 7: 43 PM CDT documented as of this encounter Last Filed Vital Signs Vital Sign Reading Time Taken Comments Blood Pressure 126/78 11/20/2018 1:36 PM CDT Pulse 80 11/20/2018 1:36 PM CDT Temperature - - Respiratory Rate - - Oxygen Saturation 98% 11/20/2018 1:36 PM CDT Inhaled Oxygen Concentration - - Weight 111.1 kg (245 lb) 11/20/2018 1:36 PM CDT Height 185.4 cm (6' 1 ) 11/20/2018 1:36 PM CDT Body Mass Index 32.32 11/20/2018 1:36 PM CDT documented in this encounter Progress Notes * Jayro Kaminski MD - 11/20/2018 11:15 AM CDT [facility] DATE OF VISIT: 11/20/2018 CHIEF COMPLAINT Chief Complaint Patient presents with ??? Follow-up 2-3 mo f/u on VTE, LVH, SVT, RBBB, QAMAR HPI Russ Kern is a 73 y.o. male with arrhythmia and PVCs. He was seen because of an upper respiratory tract infection and bronchitis by his primary care physician. Nurse practitioner noticed an irregular heartbeat an EKG showed right bundle branch block with PVCs. This led him to have an echocardiogram at [facility] which was normal except for moderate LVH. He did have mild left atrial enlargement. Mild mitral, aortic and tricuspid regurgitation. Diastolic dysfunction was present. He does have a history of pulmonary embolism, DVT and [place] filter. He had a recurrent DVT in [...] dyspnea, orthopnea, palpitations. No shortness of breath MEDICAL HISTORY Past Medical History: Diagnosis Date ??? HX OTHER MEDICAL recurrent DVT, gerd, s/p hiatal hernia surfery, ch; Comments: [facility] 03/31/2016 - ??? HX OTHER MEDICAL CKD; Comments: [facility] 03/31/2016 - Social History Tobacco Use ??? Smoking status: Never Smoker ??? Smokeless tobacco: Never Used Substance Use Topics ??? Alcohol use: Yes ??? Drug use: No No family history on file. MEDICATIONS Home Medications ALBUTEROL HFA (PROAIR HFA) 90 MCG/ACTUATION INHALER inhale 2 puff by inhalation route every 4 - 6 hours as needed APIXABAN (ELIQUIS) 5 MG TABLET Take 1 tablet (5 mg total) by mouth 2 (two) times a day BIMATOPROST (LUMIGAN) 0.01 % OPHTHALMIC DROPS Administer [...] for environmental allergies. PHYSICAL EXAM Blood pressure 126/78, pulse 80, height 185.4 cm (6' 1 ), weight 111.1 kg (245 lb), SpO2 98 %. Body mass index is 32.32 kg/m??. Physical Exam Constitutional: He is oriented [...] Musculoskeletal: Normal range of motion. He exhibits edema. Varicose veins Trivial bilateral lower extremity edema Neurological: He is alert and oriented to person, place, and time. Skin: Skin is warm and dry. Psychiatric: He has a normal mood and affect. 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 Cardiac arrhythmia, unspecified cardiac arrhythmia type Low-frequency frequency ventricular ectopy. High frequency supraventricular ectopy and brief atrialruns. Asymptomatic however. 6. RBBB 7. SVT: No sustained symptoms 8. Obstructive sleep apnea: on CPAP PLAN/RECOMMENDATIONS He is doing well and is stable at this point. 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 Therapy completed 09/25/2018 11/20/2018 documented as of this encounter Historical Medications * This list may reflect changes made after this encounter. bimatoprost (LUMIGAN) 0.01 % ophthalmic drops Administer 1 drop into both eyes nightly 10/15/2018 added in this encounter Care Teams Control Systems Engineer Relationship Specialty Start Date End Date Timothy Banks MD PCP - General 07/08/16 documented as of this encounter
--- OUTSIDE RECORDS SUMMARY | 2024-04-09 17:30 | XMS_ITS | Encounter Summary ---
Author Organization [facility] Medical [facility] Address [address] [place] [address] Care Team Providers Care Cmm Programmer Name Role Phone Timothy Banks MD Primary Care Provider [phone] Reason for Referral * (Routine) - Closed Specialty Diagnoses / Procedures Referred By Contac t Referred To Contact Diagnoses SVT (supraventricular tachycardia) (HCC) Cardiac arrhythmia, unspecified cardiac arrhythmia type Procedures 48 HR Holter Monitor Jayro Kaminski MD Phone: tel: fax: Referral ID Status Reason Start Date Expiration Date Visits Re quested Visits Authorized [id number] Closed 07/03/2017 12/30/2017 1 1 Reason for Visit * Reason Comments Hospital Follow Up for SVT and thrombus RLE Encounter Details Date Type Department Care Team (Latest Contact Info) Description 07/03/2017 11:45 AM CDT Office Visit [facility] [address] [address] [address] [place] [address] Jayro Kamisnki MD [facility] [phone] [place] current use of 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 (Primary Dx); Cardiac arrhythmia, unspecified cardiac arrhythmia type; SVT (supraventricular tachycardia) (CMS/HCC); RBBB Social History Tobacco Use Types Packs/Day Years Used Date Smoking Tobacco: Never Smokeless Tobacco: Never Alcohol Use Standard Drinks/Week Comments Yes 0 (1 standard drink = 0.6 oz pur e alcohol) Sex and Gender Information Value Date Recorded Sex Assigned at Not on file 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 Gender Identity Male 01/12/2020 7:43 PM CDT Sexual Orientation Straight 01/12/2020 7: 43 PM CDT documented as of this encounter Last Filed Vital Signs Vital Sign Reading Time Taken Comments Blood Pressure 98/68 07/03/2017 12:18 PM CDT Pulse 87 07/03/2017 12:18 PM CDT Temperature - - Respiratory Rate - - Oxygen Saturation 96% 07/03/2017 12:18 PM CDT Inhaled Oxygen Concentration - - Weight 107 kg (236 lb) 07/03/2017 12:18 PM CDT Height 185.4 cm (6' 1 ) 07/03/2017 12:18 PM CDT Body Mass Index 31.14 07/03/2017 12:18 PM CDT documented in this encounter Progress Notes * Jayro Kaminski MD - 07/03/2017 11:45 AM CDT [facility] DATE OF VISIT: 07/03/2017 CHIEF COMPLAINT Chief Complaint Patient presents with ??? Hospital Follow Up for SVT and thrombus RLE HPI Russ Kern is a 71 y.o. male with arrhythmia and PVCs. He was seen because of an upper respiratory tract infection and bronchitis by his primary care physician. Nurse practitioner noticed an irregular heartbeat an EKG showed right bundle branch block with PVCs. This led him to have an echocardiogram at [facility] which was normal except for moderate LVH. He did have mild left atrial enlargement. Mild mitral, aortic and tricuspid regurgitation. Diastolic dysfunction was present. He does have a history of pulmonary embolism, DVT and [place] filter. 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 He is on chronic anticoagulation. Previous Holtermonitoring did reveal moderate frequency ventricular ectopy and frequent supraventricular ectopy including brief atrial runs. He returns today for follow-up. Since last visit he was hospitalized for an ileus. He also developed a DVT in his right leg. He was subtherapeutic upon admission. He has some shortness of breath andis back on chronic anticoagulation. He denies any syncope or presyncope. No chest pain or paroxysmal nocturnal dyspnea. While in hospital he was having episodes of SVT also but was not discharged on any calcium channel geronimo. He has not had any significant palpitations. MEDICAL HISTORY Past Medical History: Diagnosis Date ??? HX OTHER MEDICAL recurrent DVT, gerd, s/p hiatal hernia [facility], ; Comments: [facility] 03/31/2016 - ??? HX OTHER MEDICAL CKD; Comments: [facility] 03/31/2016 - Social History Substance Use Topics [...] MULTIVITAMIN TABLET Take 1 tablet by mouth. WARFARIN (COUMADIN) 2 MG TABLET take 1 tablet by oral route every day WARFARIN (COUMADIN) 5 MG TABLET take 1 tablet by oral route every day Or as directed by Dr Kaminski ALLERGIES No Known Allergies REVIEW OF SYSTEMS Review of Systems Constitution: Negative for weight gain and weight loss. Eyes: Negative for blurred vision and visual disturbance. Cardiovascular: Positive for leg swelling. Negative for chest pain, claudication, dyspnea on exertion, irregular heartbeat, near-syncope, orthopnea, palpitations, paroxysmal nocturnal dyspnea and syncope. Respiratory: Positive for shortness of breath. Negative for cough, hemoptysis, sleep disturbances due to breathing, snoring and wheezing. Endocrine: Negative for cold intolerance, heat intolerance and polyuria. Hematologic/Lymphatic: Does not bruise/bleed easily. Skin: Negative for color change, itching and rash. Musculoskeletal: Positive for myalgias. Negative for falls, joint pain, joint swelling, muscle cramps and muscle weakness. Gastrointestinal: Positive for nausea and vomiting. Negative for abdominal pain and heartburn. Genitourinary: Negative for dysuria. Neurological: Positive for dizziness. Negative for excessive daytime sleepiness, focal weakness, headaches, light-headedness, loss of balance and numbness. Psychiatric/Behavioral: Negative for altered mental status, depression and substance abuse. The patient is not nervous/anxious. Allergic/Immunologic: Negative for environmental allergies. PHYSICAL EXAM Blood pressure 98/68, pulse 87, height 185.4 cm (6' 1 ), weight 107 kg (236 lb), SpO2 96 %. Body mass index is 31.14 kg/m??. Physical Exam Constitutional: He is oriented [...] range of motion. He exhibits no edema. Neurological: He is alert and oriented to person, place, and time. Skin: Skin is warm and dry. Psychiatric: He has a normal mood and affect. LABS AND OTHER DIAGNOSTIC TESTS No results found for: WBC, HGB, HCT, MCV, PLT Chemistry Component Value Date/Time CO2 27 08/19/2013 1411 CREATININE 1.36 (H) 08/19/2013 1411 Component Value Date/Time CALCIUM 9.6 08/19/2013 1411 No results found for: CHOL No results found for: HDL No results found for: LDL] No results found for: LDLCALC No results found for: TRIG No results found for: CHOLHDL EKG Echo Carotid artery ultrasound 06/28/2016 shows less than 50% bilateral carotid disease. ASSESSMENT Diagnoses and all orders for this visit: 1. Lightheadedness (Primary) Only 1 episode since last visit. Feeling better. 2. 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 Left ventricular hypertrophy Moderate but no evidence of failure 4. long-term current use of 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 No bleeding problems 5. Cardiac arrhythmia, unspecified cardiac arrhythmia type Moderate frequency ventricular ectopy. High frequency supraventricular ectopy and brief atrial runs. Asymptomatic however. 6. RBBB 7. SVT: Likely worsened by his acute illness at the time PLAN/RECOMMENDATIONS 1. 48 hr Holter monitor to re-evaluate his arrhythmia and SVT 2. In my opinion, patient has failed warfarin therapy and has had now for DVTs including pulmonary embolism. Some of these while on warfarin. Therefore I have advised him switching to a novel agent such as Eliquis or Xarelto. He will talk this over further with Dr. Tobias and may want referral to Dr. Jara at [facility] for Hematology opinion. Follow-up in 3 months or sooner as clinically indicated Jayro Kaminski MD, [facility] documented in this encounter Plan of Treatment Pending Results Name Type Priority Associated Diagnoses Date /Time 48 HR Holter Monitor Cardiac Services Routine SVT (supraventricular tachycardia) ([facility]) Cardiac arrhythmia, unspecified cardiac arrhythmia type 07/03/2017 1:29 PM CDT Scheduled Orders Name Type Priority Associated Diagnoses Orde r Schedule 48 HR Holter Monitor Cardiac Services Routine SVT (supraventricular tachycardia) ([facility]) Cardiac arrhythmia, unspecified cardiac arrhythmia type Expected: 07/03/2017, Expires: 07/03/2018 documented as of this encounter Visit Diagnoses Diagnosis long-term current use of 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- Primary Cardiac arrhythmia, unspecified cardiac arrhythmia type SVT (supraventricular tachycardia) ([facility]) Other specified cardiac dysrhythmias RBBB documented in this encounter Historical Medications * This list may reflect changes made after this encounter. multivitamin tabletIndications :Vitamin Deficiency Prevention Take 1 tablet by mouth. 09/04/2018 added in this encounter Care Teams Cmm Programmer Relationship Specialty Start Date End Date Timothy Banks MD PCP - General 07/08/16 documented as of this encounter
--- OUTSIDE RECORDS SUMMARY | 2024-04-09 17:30 | XMS_ITS | Encounter Summary ---
Author Organization [facility] Medical [facility] Address [address] [place] [address] Care Team Providers Care Ortho Tech Name Role Phone Timothy Banks MD Primary Care Provider [phone] Encounter Details Date Type Department Care Team (Late st Contact Info) Description 06/19/2018 Telephone [facility] [address] [address] [address] [place] [address] Jayro Kaminski MD [address] [id number] Social History Tobacco Use Types Packs/Day Years Used Date Smoking Tobacco: Never Smokeless Tobacco: Never Alcohol Use Standard Drinks/Week Comments Yes 0 (1 standard drink = 0.6 oz pur e alcohol) Sex and Gender Information Value Date Recorded Sex Assigned at Not on file 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 * Telephone Encounter - Fiona Li - 06/19/2018 3:26 PM CDT Zeenat called from [facility]. Needs a signed office note prior to pt's sleep study 03/02/18. documented in this encounter Plan of Treatment Not on file documented as of this encounter Visit Diagnoses Not on filedocumented in this encounter Care Teams Ortho Tech Relationship Specialty Start Date End Date Timothy Banks MD PCP - General 07/08/16 documented as of this encounter
--- OUTSIDE RECORDS SUMMARY | 2024-04-09 17:30 | XMS_ITS | Encounter Summary ---
Author Organization [facility] Address [address] [place] [address] Phone Care Team Providers Care Planer Offbearer Name Role Phone Timothy Banks MD Primary Care Provider + [phone] Reason for Visit * Oncology (Routine) - Closed Specialty Diagnoses / Procedures Referred By Contshakila t Referred To Contact Lab Diagnoses 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) alf current use of 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 LAB,ROV Procedures ONCBCN LAB APPOINTMENT ARM Brittany Rodriguez NP [address] [place] [address] Phone: tel: fax: [facility] Oncology [facility] Advanced Medicine 7th [place] [address] [place] [address] Phone: tel: Referral ID Status Reason Start Date Expiration Date Visits Re quested Visits Authorized [id number] Closed 09/04/2018 04/09/2019 99 99 Encounter Details Date Type Department Care Team (Late st Contact Info) Description 09/04/2018 1:15 PM CDT Lab 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 Discharge Disposition: Discharge to home or self care Social History Tobacco Use Types Packs/Day Years Used Date Smoking Tobacco: Never Smokeless Tobacco: Never Alcohol Use Standard Drinks/Week Comments Yes 0 (1 standard drink = 0.6 oz pur e alcohol) Sex and Gender Information Value Date Recorded Sex Assigned at Not on file 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 Gender Identity Male 01/12/2020 7:43 PM CDT Sexual Orientation Straight 01/12/2020 7: 43 PM CDT documented as of this encounter Discharge Disposition Disposition Code Departure Means Destination Discharge to home or self care documented in this encounter Plan of Treatment Not on file documented as of this encounter Procedures Procedure Name Priority Date/Time Associated Diagnosis Comments BASIC METABOLIC PANEL Routine 09/04/2018 1:14 PM CDT 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) 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 DIFFERENTIAL AUTO Routine 09/04/2018 1:1 3 PM CDT 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) 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 CBC WITH AUTO DIFFERENTIAL Routine 09/04/2018 1:13 PM CDT 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) 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 documented in this encounter Results * (ABNORMAL) Basic metabolic panel (09/04/2018 1:14 PM CDT) Sodium 144 135 - 145 mmol/L [facility] Potassium, pl 4.7 3.3 - 4.9 mmol/L [facility] Chloride 109 97 - 110 mmol/L [facility] CO2 27 22 - 32 mmol/L [facility] Anion gap 8 2 - 15 mmol/L [facility] BUN 19 8 - 25 mg/dL [facility] Creatinine 1.68(H) 0.80 - 1.30 mg/dL [facility] Glucose 138 70 - 199 mg/dL [facility] Comment: Interpretive Data Fasting glucose >/= [...] Current interpretive data was last revised 2017. Calcium 9.6 8.5 - 10.3 mg/dL [facility] Blood specimen (specimen) 09/04/2018 1:14 PM CDT 09/04/2018 1:22 PM CDT Narrative [facility] - 09/04/2018 1:58 PM CDT Brittany Lerner STAFF APPRAISER LAB BLOOD ORDERABLES Final Result [facility] Department [place] [address] * Differential, auto (09/04/2018 1:13 PM CDT) Neutrophil abs 3.2 1.8 - 6.6 K/cumm [facility] Comment:Testing performed by : [facility], [address] [place] [phone] Lymphocyte abs 1.4 1.2 - 3.3 K/cumm [facility] Comment:Testing performed by : [facility], [address] [place] [phone] Monocyte abs 0.6 0.2 - 1.2 K/cumm [facility] Comment:Testing performed by : [facility], [address] [place] [phone] Eosinophil abs 0.2 0.0 - 0.5 K/cumm [facility] Comment:Testing performed by : [facility], [address] [place] [phone] Basophil abs 0.0 0.0 - 0.2 K/cumm [facility] Comment:Testing performed by : [address] [phone] Neutrophil pct 58.7 % [facility] Comment: Interpretive Data Percent cell count reference ranges are not reported, since discordance with absolute values may lead to misinterpretation of CBC data. Current Interpretive Data was last revised on 2017. Testing performed by: [facility], [address] [place] [phone] Lymphocyte pct 25.7 % [facility] Comment: Interpretive Data Percent cell count reference ranges are not reported, since discordance with absolute values may lead to misinterpretation of CBC data. Current Interpretive Data was last revised on 2017. Testing performed by: [facility], [address] [place] [phone] Monocyte pct 10.4 % [facility] Comment:Testing performed by : [facility], [address] [place] [phone] Eosinophil pct 4.3 % [facility] Comment:Testing performed by : [facility], [address] [place] [phone] Basophil pct 0.9 % [facility] Comment:Testing performed by : [facility], [address] [place] [phone] Blood specimen (specimen) 09/04/2018 1:13 PM CDT 09/04/2018 1:16 PM CDT Narrative [facility] - 09/04/2018 1:21 PM CDT us Brittany Lerner STAFF APPRAISER LAB BLOOD ORDERABLES Final Result [facility] Department of Laboratories [place], [place] [id number] * (ABNORMAL) CBC with auto differential (09/04/2018 1:13 PM CDT) WBC 5.4 3.8 - 9.8 K/cumm [facility] Comment:Testing performed by : [facility], [address] [place] [phone] Hgb 13.1(L) 13.8 - 17.2 g/dL [facility] Comment:Testing performed by : [facility], [address] [place] [phone] Hct 40.1(L) 40.7 - 50.3 % [facility] Comment:Testing performed by : [facility], [address] [place] [phone] Plt 335 140 - 440 K/cumm [facility] Comment:Testing performed by : [facility], [address] [place] [phone] MPV 9.5 6.8 - 10.4 fL [facility] Comment:Testing performed by : [facility], [address] [place] [phone] RBC 4.55 4.50 - 5.70 M/cumm [facility] Comment:Testing performed by : [facility], [address] [place] [phone] MCV 88.2 80.0 - 97.6 fL [facility] Comment:Testing performed by : [facility], [address] [place] [phone] MCH 28.8 26.7 - 33.7 pg [facility] Comment:Testing performed by : [facility], [address] [place] [phone] MCHC 32.7 32.7 - 35.5 g/dL [facility] Comment:Testing performed by : [facility], [address] [place] [phone] RDW CV 13.9 11.8 - 14.6 % [facility] Comment:Testing performed by : [facility], [address] [place] [phone] NRBC abs 0.01 0.00 - 0.01 K/cumm [facility] Comment:Testing performed by : [facility], [address] [place] [phone] Blood specimen (specimen) 09/04/2018 1:13 PM CDT 09/04/2018 1:16 PM CDT Narrative [facility] - 09/04/2018 1:21 PM CDT Brittany Lerner NP LAB BLOOD ORDERABLES Final Result [facility] Department [place] [address] documented in this encounter Visit Diagnoses Diagnosis 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) 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
--- OUTSIDE RECORDS SUMMARY | 2024-04-09 17:30 | XMS_ITS | Encounter Summary ---
Author Organization [facility] Facility Care Team Providers Care Dispatch Manager Name Role Phone Unavailable Primary Care Provider Unavailabl e Encounter Details Date Type Department Care Team (Late st Contact Info) Description 08/25/2014 - 08/25/2014 11:59 PM CDT Hospital Encounter [facility] Tavares [place] Chronic kidney disease, stage III (moderate) (HCC) Social History Tobacco Use Types Packs/Day Years Used Date Smoking Tobacco: Never Assessed Sex and Gender Information Value Date Recorded Sex Assigned at Not on file 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 Gender Identity Male 01/12/2020 7:43 PM CDT Sexual Orientation Straight 01/12/2020 7: 43 PM CDT documented as of this encounter Plan of Treatment Not on file documented as of this encounter Procedures Procedure Name Priority Date/Time Associated Diagnosis Comments DISCHARGE LABORATORY CUMULATIVE REPORT Routine 08/25/2014 5:17 PM CDT URINE MICROSCOPY Routine 08/25/2014 8:3 2 AM CDT URINALYSIS Routine 08/25/2014 8:32 AM CDT documented in this encounter Results * Discharge Laboratory Cumulative Report (08/25/2014 5:17 PM CDT) 08/25/2014 5:17 PM CDT Narrative HISTORICAL RESULTS - 08/25/2014 5:17 PM CDT ? [facility] ? Department of Laboratories ? [facility] [place] ?[address] [address] [facility] ? CAM [address] Patient Name: ? NADEEM AMAYA Med Rec Number: ?? [id number] Date of : ?1945 Gender/Age: ? Male 68 years Doctor: ? Tavares Hannon M.D. Report Date/Time: 08/25/2014 17:17 ?* Abnormal ??C Critical ??f Footnote ??^ Corrected ??L Low ??H High ?i Interp Data ??@ Reference Lab ?Chart Type: Cumulative ?URINALYSIS ?08/25/2014 ?13:32:51 Test ?Units ??Reference Color ? Yellow ? [Yellow] Clarity ? Clear ?[Clear] Specific [place] ??1.012 ?[1.003-1.030] pH ?6.0 ?[5.0-8.0] Albumin ? Negative ? [Trace] Glucose ? Negative ? [Negative] Ketones ? Negative ? [Negative] Bilirubin ? Negative ? [Negative] Blood ? Negative ? [Negative] Urobilinogen ?<2.0 ?mg/dL ??[0.0-2.0] Nitrite ? Negative ? [Negative] Leuk Esterase ? Negative ? [Negative] Mucus Thrds ? Small ? /HPF RBC Ur ?1 ? /HPF ?? [0-3] WBC Ur ?1 ? /HPF ?? [0-5] Bacteria Ur ? Trace ?[Trace] Epithl Renl Ur ?0 ? /HPF ?? [0-0] 08/25/2014 13:32:51 ??Macro Ur: Client / Account bill? No Client Account Number and Description: 08/25/2014 13:32:51 ??Micro Ur [facility]: Client / Account bill? No Client Account Number and Description: us Historical Provider LAB BLOOD ORDERABLES Jamila l Result Performing Organization Address City/[facility] Co de Phone Number HISTORICAL RESULTS * Urinalysis (08/25/2014 8:32 AM CDT) Color, ur Yellow Yellow HISTORICAL RESULTS Clarity, ur Clear Clear HISTORIC AL RESULTS Specific gravity, ur 1.012 1.003 - 1.030 HISTORICAL RESULTS pH, ur 6.0 5.0 - 8.0 HISTORICAL RESULTS Protein, ur [...] esterase, ur Negative Negative HISTORICAL RESULTS Urine 08/25/2014 8:32 AM CDT Narrative HISTORICAL RESULTS - 08/25/2014 11:17 AM CDT Client / Account bill? No Client Account Number and Description: us Tavares Hannon LAB BLOOD ORDERABLES Final Resul t Performing Organization Address [facility] de Phone Number HISTORICAL RESULTS * Urine microscopy (08/25/2014 8:32 AM CDT) RBC, ur 1 0 - 3 /hpf HISTORICA L RESULTS WBC, ur 1 0 - 5 /hpf HISTORICA L RESULTS Bacteria, ur Trace Trace HISTORI NAILA RESULTS Epithelial cells, renal, ur 0 0 - 0 /hpf HISTORICAL RESULTS Mucus, ur Small /hpf HISTORICAL RESULTS Urine 08/25/2014 8:32 AM CDT Narrative HISTORICAL RESULTS - 08/25/2014 11:35 AM CDT Client / Account bill? No Client Account Number and Description: Tavares Hannon LAB BLOOD ORDERABLES Final Resul t Performing Organization Address City/[facility] Co de Phone Number HISTORICAL RESULTS documented in this encounter Visit Diagnoses Diagnosis Chronic kidney disease, stage III (moderate) (HCC) Chronic kidney disease, Stage III (moderate) documented in this encounter
--- OUTSIDE RECORDS SUMMARY | 2024-04-09 17:30 | XMS_ITS | Encounter Summary ---
Author Organization [facility] Address [address] [place] [address] Phone Care Team Providers Care Cannon Pinion Adjuster Name Role Phone Timothy Banks MD Primary Care Provider [phone] Encounter Details Date Type Department Care Team (Latest Contact Info) Description 03/06/2018 1:00 PM BED CONTROL SPECIALIST Office Visit [facility] Hematology [address] [facility] 7th [place] [address] [place] [id number] Hillary Gama MD [address] [place], [place] [id number] 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) (Primary Dx); half-way current use of 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 Social History Tobacco Use Types Packs/Day Years Used Date Smoking Tobacco: Never Smokeless Tobacco: Never Alcohol Use Standard Drinks/Week Comments Yes 0 (1 standard drink = 0.6 oz pur e alcohol) Sex and Gender Information Value Date Recorded Sex Assigned at Not on file Legal Sex Male 4:19 AM BED CONTROL SPECIALIST Gender Identity Male 01/12/2020 7:43 PM CDT Sexual Orientation Straight 01/12/2020 7: 43 PM CDT documented as of this encounter Last Filed Vital Signs Vital Sign Reading Time Taken Comments Blood Pressure 132/85 03/06/2018 1:23 PM BED CONTROL SPECIALIST Pulse 91 03/06/2018 1:23 PM BED CONTROL SPECIALIST Temperature 36.6 ??C (97.9 ??F) 03/06/2018 1:23 PM CS T Respiratory Rate 18 03/06/2018 1:23 PM BED CONTROL SPECIALIST Oxygen Saturation 97% 03/06/2018 1:23 PM BED CONTROL SPECIALIST Inhaled Oxygen Concentration - - Weight 110.2 kg (243 lb) 03/06/2018 1:23 PM BED CONTROL SPECIALIST Height - - Body Mass Index 32.06 02/21/2018 9:49 AM BED CONTROL SPECIALIST documented in this encounter Progress Notes * Brittany Lerner, NANOSCIENCE TECHNICIAN - 03/06/2018 1:00 PM CST PATIENT NAME: Russ Kern : 1945 DATE OF SERVICE: 03/07/2018 Diagnosis: Thromboembolic disease Current Treatment: 1. 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 Warfarin started for 6 months. 2. 2005, right lower extremity DVT after warfarin discontinuation. Warfarin restarted. 3. 2011, left lower extremity DVT occurred after re-initiation of warfarin after holding 5 days forcolonoscopy. 4. 2017, right lower extremity DVT occurred following re-initiation of warfarin after holding for asmall bowel obstruction. HPI: Mr. Kern is a 72 y.o.year old male who presents for follow up [...] the patient developed a left lower extremity DVTin 2011 after he was off warfarin for 5 days to undergo a colonoscopy. He reports that, after beingoff of warfarin for 5 days, he restarted warfarin without a bridge. Shortly after restarting warfarin, he developed a left lower extremity DVT. The patient then reports, in 2017, he developed a smallbowel obstruction believed to be secondary to viral [...] clot in the right lower extremity. He reports compliance with warfarin andthat his INR is generally in the therapeutic range however following his initial isit with hematology in August, it was deemed reasonable to switch him to Eliquis BID, as he would not require further monitoring and would not have dietary restrictions. He has done well with this since that time withoutevidence of bleeding or recurrent clots. He does report that he was recently called to undergo a colonoscopy, as it has been 3 years since his last one and he was told he would have to repeat in 3-5 years as he has had polyps in the past. He does report that there was not evidence of polyps on his screening 3 years ago. He is otherwise not have any GI symptoms or evidence of blood loss. He is nervous about coming off of the blood thinner prior to the procedure, as he has had several clots in the past during the days off of a blood thinner prior to procedures. ALLERGIES: No Known Allergies CURRENT MEDICATION: Current Outpatient Prescriptions: ??? albuterol HFA (PROAIR HFA) 90 mcg/actuation inhaler, inhale 2 puff by inhalation route every 4 - 6 hours as needed, Disp: 0 Inhaler, Rfl: 0 ??? apixaban (ELIQUIS) 5 mg tablet, Take 1 tablet (5 mg total) by mouth 2 (two) times a day., Disp:60 tablet, Rfl: 3 ??? budesonide-formoterol (SYMBICORT) 160-4.5 mcg/actuation inhaler, inhale [...] 8 weeks, Disp: 0, Rfl: 0 ??? folic acid 0.8 mg capsule, 0.8 mg., Disp: 0, Rfl: 0 ??? multivitamin tablet, Take 1 tablet by mouth., Disp: , Rfl: HISTORY Social History Social History ??? Marital status: Spouse name: N/A ??? Number of children: N/A ??? Years of education: N/A Occupational History ??? Not on file. Social History Main Topics ??? Smoking status: Never Smoker ??? Smokeless tobacco: Never Used ??? Alcohol use Yes ??? Drug use: No ??? Sexual activity: Not on file Other Topics Concern ??? Not on file Social History Narrative ??? No narrative on file VITALS: Vitals BP 132/85 (BP Location: Right arm) Pulse 91 Temp 36.6 ??C (97.9 ??F) (Oral) Resp 18 Wt 110.2 kg (243 lb) SpO2 97% BMI 32.06 kg/m?? PHYSICAL EXAM: Physical Exam Constitutional: He is oriented to person, place, and time. He appears well- developed and well-nourished. HENT: Head: Normocephalic and atraumatic. Nose: Nose normal. Mouth/Throat: Oropharynx is clear and moist. Eyes: Pupils are equal, round, and reactive to light. Conjunctivae and EOM are normal. Neck: Normal range of motion. Neck supple. Cardiovascular: Normal rate, regular rhythm and normal heart sounds. Pulmonary/Chest: Effort normal and breath sounds normal. Abdominal: Soft. Bowel sounds are normal. Musculoskeletal: Normal range of motion. Neurological: He is alert and oriented to person, place, and time. Skin: Skin is warm and dry. Psychiatric: He has a normal mood and affect. LABORATORY DATA: Office Visit on 09/05/2017 Component Date Value Ref Range Status ??? Cholesterol, POC 09/05/2017 153 mg/dL Final ??? HDL, POC 09/05/2017 41 mg/dL Final ??? Triglycerides, POC 09/05/2017 97 mg/dL Final ??? LDL, Direct, POC 09/05/2017 93 mg/dL Final ??? Chol/HDL Ratio, POC 09/05/2017 3.7 Final ??? Non-HDL Cholesterol, POC 09/05/2017 112 mg/dL Final ??? Cholesterol Total, POC 09/05/2017 153 mg/dL Final ASSESSMENT AND PLAN: Patient Active Problem List Diagnosis ??? Ventricular premature beats ??? half-way current use of 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 ??? RBBB ??? 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) ??? Hypertensive left ventricular hypertrophy ??? Left ventricular hypertrophy ??? Lightheadedness ??? Cardiac arrhythmia ??? Chronic renal insufficiency, stage III (moderate) (CMS/HCC) ??? Snoring ??? Hypersomnolence ??? Tiredness ??? Other fatigue 1. Thromboembolic disease. Mr. Kern is a 72 year old male with history of thromboembolic [...] Eliquis following his last visit in August and has done well on 5mg BID. He is nervous about a potential upcoming colonoscopy and we reassured him that if the testing was deemed necessary, we would plan to bridge him with Lovenox prior to the procedure. He will otherwise continue Eliquis and return to clinic in 6 months for continued evaluation. Recommendations for bridging for procedure: Stop Eliquis the day before colonoscopy. (EX. If colonoscopy is on a Monday, his last day of Eliquis would be Monday evening). He would then start Lovenox the following morning at 1mg/kg and would take that morning and evening. The morning of the colonoscopy, he would hold all blood thinners and resume Eliquis that evening. If there are any questionsor concerns don't hesitate to contact us. DISPOSITION: The patient will return follow up in 6 months. They know to contact our office with any questions or concerns prior to the next follow up appointment. Brittany Lerner NP CONTROL SPECIALIST documented in this encounter Plan of Treatment Not on file documented as of this encounter Results * (ABNORMAL) Basic metabolic panel (09/04/2018 1:14 PM CDT) Sodium 144 135 - 145 mmol/L [facility] Potassium, pl 4.7 3.3 - 4.9 mmol/L [facility] Chloride 109 97 - 110 mmol/L [facility] CO2 27 22 - 32 mmol/L [facility] Anion gap 8 2 - 15 mmol/L [facility] BUN 19 8 - 25 mg/dL [facility] Creatinine 1.68(H) 0.80 - 1.30 mg/dL [facility] Glucose 138 70 - 199 mg/dL [facility] Comment: Interpretive Data Fasting glucose >/= [...] 2017. Calcium 9.6 8.5 - 10.3 mg/dL [facility] Blood specimen (specimen) 09/04/2018 1:14 PM CDT 09/04/2018 1:22 PM CDT Narrative [facility] - 09/04/2018 1:58 PM CDT Brittany Lerner NANOSCIENCE TECHNICIAN LAB BLOOD ORDERABLES Final Result [facility] Department of Laboratories [place], [place] [id number] * (ABNORMAL) CBC with auto differential (09/04/2018 1:13 PM CDT) Pathologist [facility] WBC 5.4 3.8 - 9.8 K/cumm [facility] Comment:Testing performed by : [facility], [address] [place] [phone] Hgb 13.1(L) 13.8 - 17.2 g/dL [facility] Comment:Testing performed by : [facility], [address] [place] [phone] Hct 40.1(L) 40.7 - 50.3 % [facility] Comment:Testing performed by : [facility], [address] [place] [phone] Plt 335 140 - 440 K/cumm [facility] Comment:Testing performed by : [facility], [address] [place] [phone] MPV 9.5 6.8 - 10.4 fL [facility] Comment:Testing performed by : [facility], [address] [place] [address] [place], [place] [id number] RBC 4.55 4.50 - 5.70 M/cumm [facility] Comment:Testing performed by : [facility], [address] [place] [address] [place], [place] [id number] MCV 88.2 80.0 - 97.6 fL [facility] Comment:Testing performed by : [facility], [address] [place] [address] [place], [place] [id number] MCH 28.8 26.7 - 33.7 pg [facility] Comment:Testing performed by : [facility], [address] [place] [address] [place], [place] [id number] MCHC 32.7 32.7 - 35.5 g/dL [facility] Comment:Testing performed by : [facility], [address] [place] [address] [place], [place] [id number] RDW CV 13.9 11.8 - 14.6 % [facility] Comment:Testing performed by : [facility], [address] [place] [phone] NRBC abs 0.01 0.00 - 0.01 K/cumm [facility] Comment:Testing performed by : [facility], [address] [place] [phone] Blood specimen (specimen) 09/04/2018 1:13 PM CDT 09/04/2018 1:16 PM CDT Narrative [facility] - 09/04/2018 1:21 PM CDT us Brittany Lerner NP LAB BLOOD ORDERABLES Final Result [facility] Department [place] [address] documented in this encounter Visit Diagnoses Diagnosis 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)- Primary termite exterminator current use of 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) termite exterminator current use of 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 documented in this encounter Orders Appointment Requests Count Last Ordered Date Fi rst Ordered Date ON[facility]N CLINIC APPOINTMENT REQUEST 1 019 ON[facility]N LAB APPOINTMENT 1 09/04/2018 documented in this encounter Care Teams Cannon Pinion Adjuster Relationship Specialty Start Date End Date Timothy Banks MD PCP - General 07/08/16 documented as of this encounter
--- OUTSIDE RECORDS SUMMARY | 2024-04-09 17:30 | XMS_ITS | Encounter Summary ---
Author Organization [facility] Address [address] [place] [address] Care Team Providers Care Supervisor Fabrication Name Role Phone Timothy Banks MD Primary Care Provider [phone] Encounter Details Date Type Department Care Team (Late st Contact Info) Description 06/13/2017 Orders Only [facility] [address] [facility] [address] [facility] [address] [place] [address] Provider, MD Dusty [address] [place], [place] [id number] Social History Tobacco Use Types Packs/Day Years Used Date Smoking Tobacco: Never Smokeless Tobacco: Never Alcohol Use Standard Drinks/Week Comments Yes 0 (1 standard drink = 0.6 oz pur e alcohol) Sex and Gender Information Value Date Recorded Sex Assigned at Not on file Legal Sex Male 4:19 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 DIRECTOR Gender Identity Male 01/12/2020 7:43 PM CDT Sexual Orientation Straight 01/12/2020 7: 43 PM CDT documented as of this encounter Plan of Treatment Not on file documented as of this encounter Procedures Procedure Name Priority Date/Time Associated Diagnosis Comments LIPID PANEL Routine 09/07/2016 9:07 AM CDT documented in this encounter Results * (ABNORMAL) Lipid panel (09/07/2016 9:07 AM CDT) SCRIBED Cholesterol, Total 163 100 - 199 [facility] SCRIBED HDL 38 >39 [facility] SCRIBED LDL 102(A) 0 - 99 [facility] SCRIBED Triglycerides 141 0 - 149 [facility] Blood specimen (specimen) us Historical Provider LAB BLOOD ORDERABLES Edit ed Result - Final [facility] documented in this encounter Visit Diagnoses Not on filedocumented in this encounter Care Teams Supervisor Fabrication Relationship Specialty Start Date End Date Timothy Banks MD PCP - General 07/08/16 documented as of this encounter
--- OUTSIDE RECORDS SUMMARY | 2024-04-09 17:30 | XMS_ITS | Encounter Summary ---
Author Organization [facility] Address [address] [place] [address] Care Team Providers Care Bag Patcher Name Role Phone Timothy Banks MD Primary Care Provider [phone] Reason for Visit * Reason Comments Follow-up 6 mo f/u on VTE, LVH , lightheadedness Encounter Details Date Type Department Care Team (Latest Contact Info) Description 02/21/2018 9:45 AM YARN SIZER Office Visit [facility] [address] [address] [address] [place] [address] Jayro Kaminski MD [facility] [phone] 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 (Primary Dx); Left ventricular hypertrophy; Snoring; Hypersomnolence; Tiredness; Other fatigue Social History Tobacco Use Types Packs/Day Years Used Date Smoking Tobacco: Never Smokeless Tobacco: Never Alcohol Use Standard Drinks/Week Comments Yes 0 (1 standard drink = 0.6 oz pur e alcohol) Sex and Gender Information Value Date Recorded Sex Assigned at Not on file Legal Sex Male 4:19 AM YARN SIZER Gender Identity Male 01/12/2020 7:43 PM CDT Sexual Orientation Straight 01/12/2020 7: 43 PM CDT documented as of this encounter Last Filed Vital Signs Vital Sign Reading Time Taken Comments Blood Pressure 126/78 02/21/2018 9:49 AM YARN SIZER Pulse 81 02/21/2018 9:49 AM YARN SIZER Temperature - - Respiratory Rate - - Oxygen Saturation 98% 02/21/2018 9:49 AM YARN SIZER Inhaled Oxygen Concentration - - Weight 111.6 kg (246 lb) 02/21/2018 9:49 AM YARN SIZER Height 185.4 cm (6' 1 ) 02/21/2018 9:49 AM YARN SIZER Body Mass Index 32.46 02/21/2018 9:49 AM YARN SIZER documented in this encounter Progress Notes * Jayro Kaminski MD - 02/21/2018 9:45 AM CST [facility] DATE OF VISIT: 02/21/2018 CHIEF COMPLAINT Chief Complaint Patient presents with ??? Follow-up 6 mo f/u on VTE, LVH, lightheadedness HPI Russ Kern is a 72 y.o. male with arrhythmia and PVCs. He was seen because of an upper respiratory tract infection and bronchitis by his primary care physician. Nurse practitioner noticed an irregular heartbeat an EKG showed right bundle branch block with PVCs. This led him to have an echocardiogram at [facility] which was normal except for moderate LVH. He did have mild left atrial enlargement. Mild mitral, aortic and tricuspid regurgitation. Diastolic dysfunction was present. He does have a history of pulmonary embolism, DVT and [place] filter. He had a recurrent DVT in [...] fatigued all the time and does snore MEDICAL HISTORY Past Medical History: Diagnosis Date ??? HX OTHER MEDICAL recurrent DVT, gerd, [facility] [place] ; Comments: [facility] 03/31/2016 - ??? HX OTHER MEDICAL CKD; Comments: [facility] 03/31/2016 - Social History Substance Use Topics [...] total) by mouth 2 (two) times a day. BUDESONIDE-FORMOTEROL (SYMBICORT) 160-4.5 MCG/ACTUATION INHALER inhale 2 [...] allergies. PHYSICAL EXAM Blood pressure 126/78, pulse 81, height 185.4 cm (6' 1 ), weight 111.6 kg (246 lb), SpO2 98 %. Body mass index is 32.46 kg/m??. Physical Exam Constitutional: He is oriented [...] Moderate but no evidence of failure 4. detention current use of 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 No bleeding problems 5. Cardiac arrhythmia, unspecified cardiac arrhythmia type Low-frequency frequency ventricular ectopy. High frequency supraventricular ectopy and brief atrialruns. Asymptomatic however. 6. RBBB 7. SVT: No sustained symptoms 8. Snoring/hypersomnolence/tiredness/fatigue: Probable sleep apnea PLAN/RECOMMENDATIONS 1. Will order sleep study 2. Continue his other cardiac regimen without change. Avoid salt. 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
--- OUTSIDE RECORDS SUMMARY | 2024-04-09 17:30 | XMS_ITS | Encounter Summary ---
Author Organization [facility] Care Team Providers Care Java Tech Name Role Phone Timothy Banks MD Primary Care Provider Encounter Details Date Type Department Care Team (Latest Contact Info) Description 07/08/2019 Travel Social History Tobacco Use Types Packs/Day Years Used Date Smoking Tobacco: Never Smokeless Tobacco: Never Alcohol Use Standard Drinks/Week Comments Yes 0 (1 standard drink = 0.6 oz pur e alcohol) Sex and Gender Information Value Date Recorded Sex Assigned at Not on file Legal Sex Male 4:19 AM MEDICAL DATA ENTRY CLERK Gender Identity Male 01/12/2020 7:43 PM CDT Sexual Orientation Straight 01/12/2020 7: 43 PM CDT COVID-19 Exposure Response Date Recorded In the last month, have you been in contact with someone who was confirmed or suspected to have Coronavirus / COVID-19? No / Unsure 07/08/2019 10:46 AM CDT documented as of this encounter Plan of Treatment Not on file documented as of this encounter Visit Diagnoses Not on filedocumented in this encounter Care Teams Java Tech Relationship Specialty Start Date End Date Timothy Banks MD PCP - General 07/08/16 documented as of this encounter
--- OUTSIDE RECORDS SUMMARY | 2024-04-09 17:30 | XMS_ITS | Encounter Summary ---
Author Organization [facility] Address [address] [place] [address] Care Team Providers Care Stewardesses Teacher Name Role Phone Timothy Banks MD Primary Care Provider [phone] Reason for Visit * Reason Comments Follow-up 4 mo follow up on li ghtheadedness, RBBB, PVCs Encounter Details Date Type Department Care Team (Latest Contact Info) Description 10/28/2016 8:45 AM CDT Office Visit [facility] [address] [address] [address] [place] [phone] Jayro Kaminski MD [facility] [id number] Lightheadedness (Primary Dx); 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); Left ventricular hypertrophy; snf current use of 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; Cardiac arrhythmia, unspecified cardiac arrhythmia type; RBBB Social History Tobacco Use Types Packs/Day Years Used Date Smoking Tobacco: Never Smokeless Tobacco: Never Alcohol Use Standard Drinks/Week Comments Yes 0 (1 standard drink = 0.6 oz pur e alcohol) Sex and Gender Information Value Date Recorded Sex Assigned at Not on file 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 Gender Identity Male 01/12/2020 7:43 PM CDT Sexual Orientation Straight 01/12/2020 7: 43 PM CDT documented as of this encounter Last Filed Vital Signs Vital Sign Reading Time Taken Comments Blood Pressure 130/80 10/28/2016 8:32 AM CDT Pulse 104 10/28/2016 8:32 AM CDT Temperature - - Respiratory Rate - - Oxygen Saturation 93% 10/28/2016 8:32 AM CDT Inhaled Oxygen Concentration - - Weight 110.2 kg (243 lb) 10/28/2016 8:32 AM CDT Height 185.4 cm (6' 1 ) 10/28/2016 8:32 AM CDT Body Mass Index 32.06 10/28/2016 8:32 AM CDT documented in this encounter Progress Notes * Jayro Kaminski MD - 10/28/2016 8:45 AM CDT [facility] DATE OF VISIT: 10/28/2016 CHIEF COMPLAINT Chief Complaint Patient presents with ??? Follow-up 4 mo follow up on lightheadedness, RBBB, PVCs HPI Russ Kern is a 70 y.o. male with arrhythmia and PVCs. He was seen because of an upper respiratory tract infection and bronchitis by his primary care physician. Nurse practitioner noticed an irregular heartbeat an EKG showed right bundle branch block with PVCs. This led him to have an echocardiogram at [facility] which was normal except for moderate LVH. He did have mild left atrial enlargement. Mild mitral, aortic and tricuspid regurgitation. Diastolic dysfunction was present. He does have a history of pulmonary embolism, DVT and [place] filter. 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 He is on chronic anticoagulation. Previous Holtermonitoring did reveal moderate frequency ventricular ectopy and frequent supraventricular ectopy including brief atrial runs. He returns today for follow-up. He denies any chest pain, shortness of breath, syncope, paroxysmal nocturnal dyspnea, orthopnea, edema or palpitations. He did have an episode of lightheadedness lasting approximately 10 minutes but this resolved and overall has been feeling pretty well since last visit. MEDICAL HISTORY Past Medical History: Diagnosis Date ??? HX OTHER MEDICAL recurrent DVT, gerd, s/p [facility], ; Comments: [facility] 03/31/2016 - ??? HX OTHER MEDICAL CKD; Comments: [facility] 03/31/2016 - Social History Substance Use Topics ??? Smoking status: Never Smoker ??? Smokeless tobacco: Never Used ??? Alcohol use Yes History reviewed. No pertinent family history. MEDICATIONS Home Medications ALBUTEROL HFA (PROAIR HFA) [...] FOLIC ACID 0.8 MG CAPSULE 0.8 mg. WARFARIN (COUMADIN) 2 MG TABLET take 1 tablet by oral route every day WARFARIN (COUMADIN) 5 MG TABLET take 1 tablet by oral route every day Or as directed by Dr Kaminski ALLERGIES No Known Allergies REVIEW OF SYSTEMS Review of Systems Constitution: Negative for weight gain and weight loss. HENT: Negative for headaches. Eyes: Negative for blurred vision and visual [...] for excessive daytime sleepiness, dizziness, focal weakness, light-headedness, loss of balance and numbness. Psychiatric/Behavioral: Negative for altered mental status, depression and substance abuse. The patient is not nervous/anxious. Allergic/Immunologic: Negative for environmental allergies. PHYSICAL EXAM Blood pressure 130/80, pulse 104, height 185.4 cm (6' 1 ), weight 110 kg (243 lb), SpO2 93 %. Body mass index is 32.06 kg/m??. Physical Exam Constitutional: He is oriented to person, place, and time. He appears well-nourished. HENT: Head: Normocephalic and atraumatic. Nose: Nose normal. Eyes: Conjunctivae and EOM are normal. No scleral icterus. Neck: Neck supple. Cardiovascular: Normal rate, regular rhythm, normal heart sounds and intact distal pulses. Exam reveals no gallop and no friction rub. No murmur heard. Ectopy noted. Pulmonary/Chest: Effort normal and breath sounds normal. [...] Moderate but no evidence of failure 4. snf current use of 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 No bleeding problems 5. Cardiac arrhythmia, unspecified cardiac arrhythmia type Moderate frequency ventricular ectopy. High frequency supraventricular ectopy and brief atrial runs. Asymptomatic however. 6. RBBB PLAN/RECOMMENDATIONS No changes to his cardiac regimen at this point. He is feeling okay and I did talk to him about a beta-geronimo again because of his ectopy would because of how good he is feeling no changes will be made to his regimen at this point. Follow-up in 6 months or sooner as clinically indicated Jayro Kaminski MD, [facility] documented in this encounter Plan of Treatment Not on file documented as of this encounter Visit Diagnoses Diagnosis Lightheadedness- Primary Dizziness and giddiness 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) Left ventricular hypertrophy Cardiomegaly snf current use of 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 Cardiac arrhythmia, unspecified cardiac arrhythmia type RBBB documented in this encounter Care Teams Stewardesses Teacher Relationship Specialty Start Date End Date Timothy Banks MD PCP - General 07/08/16 documented as of this encounter
--- OUTSIDE RECORDS SUMMARY | 2024-04-09 17:30 | XMS_ITS | Encounter Summary ---
Author Organization [facility] Address [address] [place] [address] Care Team Providers Care Desktop Publishing Associate Name Role Phone Timothy Banks MD Primary Care Provider [phone] Reason for Visit * Reason Comments Follow-up 6 mo f/u on RBBB, LV H, edema Encounter Details Date Type Department Care Team (Latest Contact Info) Description 08/03/2021 10:15 AM CDT Office Visit [facility] Cardiology [address] [place] [phone] Jayro Kaminski MD [facility] [id number] 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) (Primary Dx); LVH (left ventricular hypertrophy); QAMAR (obstructive sleep apnea); alf current use of 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; Hypertensive left ventricular hypertrophy, without heart failure; Cardiac arrhythmia, unspecified cardiac arrhythmia type Social History Tobacco Use Types Packs/Day Years Used Date Smoking Tobacco: Never Smokeless Tobacco: Never Alcohol Use Standard Drinks/Week Comments Yes 0 (1 standard drink = 0.6 oz pur e alcohol) Sex and Gender Information Value Date Recorded Sex Assigned at Not on file 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 Gender Identity Male 01/12/2020 7:43 PM CDT Sexual Orientation Straight 01/12/2020 7: 43 PM CDT documented as of this encounter Last Filed Vital Signs Vital Sign Reading Time Taken Comments Blood Pressure 124/72 08/03/2021 10:13 AM CDT Pulse 81 08/03/2021 10:13 AM CDT Temperature - - Respiratory Rate - - Oxygen Saturation 97% 08/03/2021 10:13 AM CDT Inhaled Oxygen Concentration - - Weight 119.3 kg (263 lb) 08/03/2021 10:13 AM CDT Height 185.4 cm (6' 1 ) 08/03/2021 10:13 AM CDT Body Mass Index 34.7 08/03/2021 10:13 AM CDT documented in this encounter Progress Notes * Jayro Kaminski MD - 08/03/2021 10:15 AM CDT Images from the original note were not included. [facility] DATE OF VISIT: 08/03/2021 CHIEF COMPLAINT Chief Complaint Patient presents with ??? Follow-up 6 mo f/u on RBBB, LVH, edema HPI Russ Kern is a 75 y.o. male with arrhythmia and PVCs. He was seen because of an upper respiratory tract infection and bronchitis by his primary care physician. Nurse practitioner noticed an irregular heartbeat an EKG showed right bundle branch block with PVCs. This led him to have an echocardiogram at [facility] which was normal except for moderate LVH. He did have mild left atrial enlargement. Mild mitral, aortic and tricuspid regurgitation. Diastolic dysfunction was present. He does have a history of pulmonary embolism, DVT and [place] filter. He had a recurrent DVT in [...] dyspnea orthopnea, edema or palpitations Follow-up note 08/03/2021: He denies any chest pain, unusual shortness breath, syncope, presyncope,paroxysmal nocturnal dyspnea, orthopnea, unusual edema or palpitations. No bleeding issues MEDICAL HISTORY Past Medical History: Diagnosis Date ??? Cataract 2017 ??? Chronic bronchitis (CMS/HCC) (HCC) ? Chronic kidney disease 2009 ??? GERD (gastroesophageal reflux disease) 1973 ??? Heart disease 2015 ??? HX OTHER MEDICAL recurrent DVT, gerd, s/p hiatal hernia [facility]; Comments: [facility] 03/31/2016 - ??? HX OTHER MEDICAL CKD; Comments: [facility] 03/31/2016 - ??? Sleep apnea 2018 Social History Tobacco Use ??? Smoking status: [...] Moderate but no evidence of failure 4. alf current use of 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 No bleeding [...] sooner as clinically indicated Jayro Kaminski MD, [facility] documented in this encounter Plan of Treatment Not on file documented as of this encounter Visit Diagnoses Diagnosis 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)- Primary LVH (left ventricular hypertrophy) Cardiomegaly QMAAR (obstructive sleep apnea) Obstructive sleep apnea (adult) (pediatric) alf current use of 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 Hypertensive left ventricular hypertrophy, without heart failure Cardiac arrhythmia, unspecified cardiac arrhythmia type documented in this encounter Care Teams Desktop Publishing Associate Relationship Specialty Start Date End Date Timothy Banks MD PCP - General 07/08/16 documented as of this encounter
--- OUTSIDE RECORDS SUMMARY | 2024-04-09 17:30 | XMS_ITS | Encounter Summary ---
Author Organization [facility] Care Team Providers Care Flight Attendant/Inflight Manager Name Role Phone Unavailable Primary Care Provider Unavailabl e Encounter Details Date Type Department Care Team (Latest Contact Info) Description 10/06/2011 7:25 PM CDT - 10/07/2011 12:00 PM CDT Hospital Encounter [facility] Eugene Pritchett, DO [address] [place] [address] Phlebitis or thrombophlebitis of other deep vessel of lower extremity Social History Tobacco Use Types Packs/Day Years Used Date Smoking Tobacco: Never Assessed Sex and Gender Information Value Date Recorded Sex Assigned at Not on file 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
--- OUTSIDE RECORDS SUMMARY | 2024-04-09 17:30 | XMS_ITS | Encounter Summary ---
Author Organization [facility] Address [address] [place] [address] Care Team Providers Care Dirt Contractor Name Role Phone Timothy Banks MD Primary Care Provider [phone] Reason for Referral * Cardiology (Routine) - Closed Specialty Diagnoses / Procedures Referred By Contac t Referred To Contact Diagnoses Cardiac arrhythmia, unspecified cardiac arrhythmia type RBBB LVH (left ventricular hypertrophy) Procedures Transthoracic Echo Complete W Doppler/CF Veena Malone MD [address] [place] [address] Phone: tel: fax: [facility] Referral ID Status Reason Start Date Expiration Date Visits Re quested Visits Authorized [id number] Closed 01/13/2020 02/11/2021 1 1 Reason for Visit * Reason Comments Follow-up 6 mo f/u on RBBB, LV H, VTE Encounter Details Date Type Department Care Team (Latest Contact Info) Description 01/13/2020 8:30 AM CDT Office Visit [facility] Medical [facility] Cardiology [address] [place] [address] Veena Malone MD [address] [place] [address] oysterman current use of 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 (Primary Dx); Cardiac arrhythmia, unspecified cardiac arrhythmia type; QAMAR (obstructive sleep apnea); RBBB; LVH (left ventricular hypertrophy); Lipid screening Social History Tobacco Use Types Packs/Day Years Used Date Smoking Tobacco: Never Smokeless Tobacco: Never Alcohol Use Standard Drinks/Week Comments Yes 0 (1 standard drink = 0.6 oz pur e alcohol) Sex and Gender Information Value Date Recorded Sex Assigned at Not on file 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 Gender Identity Male 01/12/2020 7:43 PM CDT Sexual Orientation Straight 01/12/2020 7: 43 PM CDT documented as of this encounter Last Filed Vital Signs Vital Sign Reading Time Taken Comments Blood Pressure 128/76 01/13/2020 8:43 AM CDT Pulse 86 01/13/2020 8:43 AM CDT Temperature - - Respiratory Rate - - Oxygen Saturation 96% 01/13/2020 8:43 AM CDT Inhaled Oxygen Concentration - - Weight 116.6 kg (257 lb) 01/13/2020 8:43 AM CDT Height 185.4 cm (6' 1 ) 01/13/2020 8:43 AM CDT Body Mass Index 33.91 01/13/2020 8:43 AM CDT documented in this encounter Progress Notes * Veena Malone MD - 01/13/2020 8:30 AM CDT [facility] DATE OF VISIT: 01/13/2020 CHIEF COMPLAINT Chief Complaint Patient presents with ??? Follow-up 6 mo f/u on RBBB, LVH, VTE HPI Nadeem Amaya is a 74 y.o. male with arrhythmia [...] dyspnea orthopnea, edema or palpitations Follow-up note 01/13/2020: He denies any chest pain, shortness breath, syncope, presyncope, paroxysmal nocturnal dyspnea, orthopnea, unusual edema or palpitations. MEDICAL HISTORY Past Medical History: Diagnosis Date ??? HX OTHER MEDICAL recurrent DVT, gerd, s/p hiatal hernia [facility], ; Comments: [facility] 03/31/2016 - ??? HX OTHER MEDICAL CKD; Comments: [facility] 03/31/2016 - Social History Tobacco Use ??? [...] for environmental allergies. PHYSICAL EXAM Blood pressure 128/76, pulse 86, height 185.4 cm (6' 1 ), weight 116.6 kg (257 lb), SpO2 96 %. Body mass index is 33.91 kg/m??. Physical Exam Constitutional: He is oriented [...] distension. There is no abdominal tenderness. Musculoskeletal: Normal range of motion. General: Edema present. Comments: Varicose veins Trivial bilateral lower extremity [...] Moderate but no evidence of failure 4. oysterman current use of 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 No bleeding problems 5. Cardiac arrhythmia, unspecified cardiac arrhythmia type Low-frequency frequency ventricular ectopy. High frequency supraventricular ectopy and brief atrialruns. Asymptomatic however. 6. RBBB 7. SVT: No sustained symptoms 8. Obstructive sleep apnea: on CPAP PLAN/RECOMMENDATIONS 2D echocardiogram Doppler to evaluate his cardiac arrhythmia, right bundle- branch block LVH He is doing well and is stable at this point. I recommend he continue his current cardiac regimen without change and follow-up in 6 months or sooner as clinically indicated Veena Malone MD, [facility] documented in this encounter Miscellaneous Notes * Addendum Note - Leslie Sam MA - 01/13/2020 8:30 AM CDTAddended by: LESLIE SAM on: 01/13/2020 02:43 PM Modules accepted: Orders documented in this encounter Plan of Treatment Not on file documented as of this encounter Procedures Procedure Name Priority Date/Time Associated Diagnosis Comments POCT LIPID PANEL Routine 01/13/2020 2:42 PM CDT Lipid screening documented in this encounter Results * TRANSTHORACIC ECHO (TTE) COMPLETE W DOPPLER/CF W CONTRAST (01/30/2020 11:07 AM CDT) Anatomical Region Laterality Modality Ultrasound 01/30/2020 10:0 0 AM CDT Narrative 01/30/2020 5:46 PM CDT [facility] Cardiology [address] [id number] [address] [address] P:[phone] P:[phone] Echocardiographic Report Patient Name: NADEEM AMAYA : 1945 Study Date: 01/30/2020 10:00:19 AM Gender: M Tech: Location: [place] Ref.Provider: CHRISTOPHER Height(Cm): 185 BSA: 2.39 Weight(Kg): [...] - 1.00 ] cm ? LVOT Peak Reagn ?1.44 ? [ 0.70 - 1.10 ] [...] Findings: Interpretation Site: Exam was interpreted at [facility]. Left Ventricle: Normal left ventricular size. [...] regurgitation. Electronically Signed By: Reggie Jackson MD, [facility] 2020-01-30 17:46:40 CDT Procedure Note Reggie Jackson MD - 01/30/2020 [facility] Cardiology [address] [address] [address] [address] P:[phone] P:[phone] Echocardiographic Report Patient Name: NADEEM AMAYAPatient ID: [id number] : [id number] Date: 01/30/2020 10:00:19 AM Gender: MAccession #: [id number] Tech: GMLocation: [place] Ref.Provider: Narayan(Cm): 185 BSA: 2.39Weight(Kg): 116.57 Heart Rate: 79BP: [...] 16.00 - 28.00 ] cc/m2 MV Decel Seui622 [ 150 - 200 ] msec ACS MM 2.00 cm PV Peak Vel0.93 [ 0.40 - 0.80 ] m/s TR Peak Vel2.38 [ 0.40 - 0.80 ] m/s TR Peak PG 23mmHg RVSP31.00 mmHg E'0.09 E/E' 8 Findings: Interpretation Site: Exam was interpreted at [facility]. Left Ventricle: Normal left ventricular size. [...] regurgitation. Electronically Signed By: Reggie Jackson MD, [facility] 2020-01-30 17:46:40 CDT Veena Malone MD CV ECHO PROCEDURES Final Result * POCT lipid panel (01/13/2020 2:42 PM CDT) Cholesterol, POC 138 mg/dL HDL, POC 34 mg/dL Triglycerides, POC 119 mg/dL LDL Cholesterol POC 80 mg/dL Chol/HDL Ratio, POC 4.0 Non-HDL Cholesterol, POC 104 mg/dL Cholesterol Total, POC 138 mg/dL Capillary blood 01/13/2020 2 :42 PM CDT Veena Malone MD POINT OF CARE TEST ORDERA BLES Final Result documented in this encounter Visit Diagnoses Diagnosis oysterman current use of 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- Primary Cardiac arrhythmia, unspecified cardiac arrhythmia type QAMAR (obstructive sleep apnea) Obstructive sleep apnea (adult) (pediatric) RBBB LVH (left ventricular hypertrophy) Cardiomegaly Lipid screening Screening for lipoid disorders Cardiac arrhythmia, unspecified cardiac arrhythmia type RBBB LVH (left ventricular hypertrophy) Cardiomegaly documented in this encounter Care Teams Dirt Contractor Relationship Specialty Start Date End Date Timothy Banks MD PCP - General 07/08/16 documented as of this encounter
--- OUTSIDE RECORDS SUMMARY | 2024-04-09 17:30 | XMS_ITS | Encounter Summary ---
Author Organization [facility] Address [address] [place] [address] Care Team Providers Care Senior Procurement Manager Name Role Phone Timothy Banks MD Primary Care Provider [phone] Encounter Details Date Type Department Care Team (Late st Contact Info) Description 07/13/2018 Orders Only [facility] [address] [place] [address] Scanning, Provider Social History Tobacco Use Types Packs/Day Years Used Date Smoking Tobacco: Never Smokeless Tobacco: Never Alcohol Use Standard Drinks/Week Comments Yes 0 (1 standard drink = 0.6 oz pur e alcohol) Sex and Gender Information Value Date Recorded Sex Assigned at Not on file 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
--- OUTSIDE RECORDS SUMMARY | 2024-04-09 17:30 | XMS_ITS | Encounter Summary ---
Author Organization [facility] Address [address] [place] [address] Phone Care Team Providers Care Manager Heart Name Role Phone Timothy Banks MD Primary Care Provider + [phone] Reason for Visit * Oncology (Routine) - Authorized Specialty Diagnoses / Procedures Referred By Contshakila t Referred To Contact Oncology Diagnoses 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) Procedures ONCBCN ARM DRAW APPT ONC LAB ONLY Hillary Gama MD [address] [place] [address] Phone: tel: fax: Hillary Gama MD [address] [address] Phone: tel: fax: Referral ID Status Reason Start Date Expiration Date Visits Requested Visits Authorized [id number] Authorized Specialty Services Required 04/10/2018 04/09/2024 99 [phone] Encounter Details Date Type Department Care Team (Late st Contact Info) Description 09/03/2019 9:45 AM CDT Lab [facility] Oncology [facility] 7th [place] [address] [place] [id number] Hillary Gama MD [address] [place], [place] [id number] 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); 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 Social History Tobacco Use Types Packs/Day Years Used Date Smoking Tobacco: Never Smokeless Tobacco: Never Alcohol Use Standard Drinks/Week Comments Yes 0 (1 standard drink = 0.6 oz pur e alcohol) Sex and Gender Information Value Date Recorded Sex Assigned at Not on file 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 Gender Identity Male 01/12/2020 7:43 PM CDT Sexual Orientation Straight 01/12/2020 7: 43 PM CDT documented as of this encounter Plan of Treatment Not on file documented as of this encounter Procedures Procedure Name Priority Date/Time Associated Diagnosis Comments DIFFERENTIAL AUTO Routine 09/03/2019 9:5 4 AM CDT 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) CBC WITH AUTO DIFFERENTIAL Routine 09/03/2019 9:54 AM CDT 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) RETICULOCYTES Routine 09/03/2019 9:54 AM CDT 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) BASIC METABOLIC PANEL Routine 09/03/2019 9:54 AM CDT 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) documented in this encounter Results * Differential, auto (09/03/2019 9:54 AM CDT) Neutrophil abs 2.8 1.8 - 6.6 K/cumm C[facility] Comment:Testing performed by : [facility], [address] [place] [phone] Lymphocyte abs 1.3 1.2 - 3.3 K/cumm [facility] Comment:Testing performed by : [facility], [address] [place] [phone] Monocyte abs 0.8 0.2 - 1.2 K/cumm [facility] Comment:Testing performed by : [facility], [address] [place] [phone] Eosinophil abs 0.3 0.0 - 0.5 K/cumm [facility] Comment:Testing performed by : [facility], [address] [place] [phone] Basophil abs 0.0 0.0 - 0.2 K/cumm [facility] Comment:Testing performed by : [facility], [address] [place] [phone] Neutrophil pct 53.4 % [facility] Comment: Interpretive Data Percent cell count reference ranges are not reported, since discordance with absolute values may lead to misinterpretation of CBC data. Current Interpretive Data was last revised on 2017. Testing performed by: [facility], [address] [place] [phone] Lymphocyte pct 24.4 % [facility] Comment: Interpretive Data Percent cell count reference ranges are not reported, since discordance with absolute values may lead to misinterpretation of CBC data. Current Interpretive Data was last revised on 2017. Testing performed by: [facility], [address] [place] [phone] Monocyte pct 16.3 % [facility] Comment:Testing performed by : [facility], [address] [place] [phone] Eosinophil pct 5.3 % [facility] Comment:Testing performed by : [address] [phone] Basophil pct 0.6 % [facility] Comment:Testing performed by : [facility], [address] [place] [phone] Blood specimen (specimen) 09/03/2019 9:54 AM CDT 09/03/2019 9:56 AM CDT us Hillary Gama MD LAB BLOOD ORDERABLES Final Result [facility] Department [place] [address] * (ABNORMAL) CBC with auto differential (09/03/2019 9:54 AM CDT) WBC 5.2 3.8 - 9.8 K/cumm [facility] Comment:Testing performed by : [facility], [address] [place] [phone] Hgb 13.4(L) 13.8 - 17.2 g/dL [facility] Comment:Testing performed by : [facility], [address] [place] [phone] Hct 40.9 40.7 - 50.3 % [facility] Comment:Testing performed by : [facility], [address] [place], [place] [phone] Plt 289 140 - 440 K/cumm CERMELLO [facility] Comment:Testing performed by : [facility], [address] [place], [place] [phone] MPV 9.8 6.8 - 10.4 fL [facility] Comment:Testing performed by : [facility], [address] [place], [place] [phone] RBC 4.64 4.50 - 5.70 M/cumm CERMELLO [facility] Comment:Testing performed by : [facility], [address] [place], [place] [phone] MCV 88.3 80.0 - 97.6 fL [facility] Comment:Testing performed by : [facility], [address] [place] [phone] MCH 28.8 26.7 - 33.7 pg CERMELLO [facility] Comment:Testing performed by : [facility], [address] [place] [phone] MCHC 32.6(L) 32.7 - 35.5 g/dL CERNER [facility] Comment:Testing performed by : [address] [phone] RDW CV 14.6 11.8 - 14.6 % CERNER [facility] Comment:Testing performed by : [address] [phone] NRBC abs 0.00 0.00 - 0.01 K/cumm AIME [facility] Comment:Testing performed by : [facility], [address] [place] [phone] Blood specimen (specimen) 09/03/2019 9:54 AM CDT 09/03/2019 9:56 AM CDT Hillary Gama MD LAB BLOOD ORDERABLES Final Result [facility] Department [place] [address] * Reticulocyte Count (09/03/2019 9:54 AM CDT) Pathologist [facility] Retics, absolute 0.040 0.020 - 0.087 M/cumm [facility] Comment:Testing performed by : [facility], [address] [place] [phone] Retics 0.85 0.50 - 1.80 % [facility] Comment:Testing performed by : [facility], [address] [place] [phone] Blood specimen (specimen) 09/03/2019 9:54 AM CDT 09/03/2019 9:56 AM CDT us Hillary Gama MD LAB BLOOD ORDERABLES Final Result Performing Organization Address City/State/[facility] Co de Phone Number AIME [facility] Department [place] [address] * (ABNORMAL) Basic metabolic panel (09/03/2019 9:54 AM CDT) [facility] Sodium 143 135 - 145 mmol/L AIME [facility] Comment:Testing performed by : [facility], [address] [place] [phone] Potassium, pl 5.1(H) 3.3 - 4.9 mmol/L AIME [facility] Comment:Testing performed by : [facility], [address] [place] [phone] Chloride 107 97 - 110 mmol/L AIME [facility] Comment:Testing performed by : [facility], [address] [place] [phone] CO2 29 22 - 32 mmol/L AIME [facility] Comment:Testing performed by : [facility], [address] [place] [phone] Anion gap 7 2 - 15 mmol/L [facility] Comment:Testing performed by : [facility], [address] [place] [phone] BUN 16 8 - 25 mg/dL AIME [facility] Comment:Testing performed by : [facility], [address] [place] [phone] Creatinine 1.35(H) 0.80 - 1.30 mg/dL [facility] Comment:Testing performed by : [facility], [address] [place] [phone] Glucose 107 70 - 199 mg/dL [facility] Comment: Interpretive Data Fasting glucose >/= [...] was last revised 2017. Testing performed by: [facility], [address] [place] [phone] Calcium 9.5 8.5 - 10.3 mg/dL [facility] Comment:Testing performed by : [facility], [address] [place] [phone] Blood specimen (specimen) 09/03/2019 9:54 AM CDT 09/03/2019 9:56 AM CDT Hillary Gama MD LAB BLOOD ORDERABLES Final Result [facility] Department [place] [address] documented in this encounter Visit Diagnoses Diagnosis 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) [facility] current use of 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 documented in this encounter Orders Appointment Requests Count Last Ordered Date Fi rst Ordered Date ONCBCN LAB APPOINTMENT 1 09/03/2019 documented in this encounter Care Teams Manager Heart Relationship Specialty Start Date End Date Timothy Banks MD PCP - General 07/08/16 documented as of this encounter
--- OUTSIDE RECORDS SUMMARY | 2024-04-09 17:30 | XMS_ITS | Encounter Summary ---
Author Organization [facility] Address [address] [place] [address] Care Team Providers Care Carrier Driver Name Role Phone Timothy Banks MD Primary Care Provider Encounter Details Date Type Department Care Team (Late st Contact Info) Description 07/28/2017 Telephone [facility] [address] [address] [address] [place] [address] Jayro Kaminski MD [facility] [phone] Social History Tobacco Use Types Packs/Day Years Used Date Smoking Tobacco: Never Smokeless Tobacco: Never Alcohol Use Standard Drinks/Week Comments Yes 0 (1 standard drink = 0.6 oz pur e alcohol) Sex and Gender Information Value Date Recorded Sex Assigned at Not on file 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 Sinus tachycardia with PACs noted ----- Message ----- From: Malathi Padilla MA Sent: 07/11/2017 3:11 PM To: Jayro Kaminski MD documented in this encounter Plan of Treatment Not on file documented as of this encounter Visit Diagnoses Not on filedocumented in this encounter Care Teams Carrier Driver Relationship Specialty Start Date End Date Timothy Banks MD PCP - General 07/08/16 documented as of this encounter
--- OUTSIDE RECORDS SUMMARY | 2024-04-09 17:30 | XMS_ITS | Encounter Summary ---
Author Organization [facility] Address [address] [place] [address] Phone Care Team Providers Care Inspector Exhaust Emissions Name Role Phone Timothy Banks MD Primary Care Provider + [phone] Encounter Details Date Type Department Care Team (Late st Contact Info) Description 08/29/2017 Orders Only [facility] Hematology 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 Gender Identity Male 01/12/2020 7:43 PM CDT Sexual Orientation Straight 01/12/2020 7: 43 PM CDT documented as of this encounter Plan of Treatment Not on file documented as of this encounter Procedures Procedure Name Priority Date/Time Associated Diagnosis Comments CBC WITH AUTO DIFFERENTIAL Routine Gen Lab 08/29/2017 3:05 PM CDT BASIC METABOLIC PANEL Routine Gen Lab 08/29/2017 3:05 PM CDT documented in this encounter Results * (ABNORMAL) CBC with auto differential (08/29/2017 3:05 PM CDT) [facility] WBC 5.4 3.8 - 9.8 K/cumm [facility] RBC 4.74 4.50 - 5.70 M/cumm [facility] Hgb 13.4(L) 13.8 - 17.2 g/dL [facility] Hct 41.6 40.7 - 50.3 % [facility] Mean Cellular Volume - CAM 87.8 80.0 - 97.6 fL [facility] Mean Cellular Hemoglobin - CAM 28.2 26.7 - 33.7 pg [facility] Mean Cellular Hemoglobin Concentration - CAM 32.1(L) 32.7 - 35.5 g/dL [facility] Rdw 14.7(H) 11.8 - 14.6 % [facility] Plt 329 140 - 440 K/cumm [facility] Mean Platelet Volume - CAM 9.5 6.8 - 10.4 fL [facility] Neutrophil pct 57.7 38.7 - 74.5 % [facility] Lymphocyte pct 26.1 20.0 - 54.3 % [facility] Monos 13.1 4.3 - 13.5 % [facility] Eosinophil pct 2.0 0.0 - 6.0 % [facility] Basophil pct 1.1 0.0 - 3.0 % [facility] Neutrophil abs 3.1 1.8 - 6.6 K/cumm [facility] Lymphocyte abs 1.4 1.2 - 3.3 K/cumm [facility] Monocyte abs 0.7 0.2 - 1.2 K/cumm [facility] Eosinophils, abs 0.1 0.0 - 0.5 K/cumm [facility] Basophil abs 0.1 0.0 - 0.2 K/cumm [facility] NRBC 0.0 0.0 - 0.2 % [facility] NRBC abs 0.00 0.00 - 0.01 K/cumm [facility] Blood specimen (specimen) 08/29/2017 3:05 PM CDT 08/29/2017 3:07 PM CDT Narrative [facility] - 08/29/2017 3:10 PM CDT us Hillary Gama MD LAB BLOOD ORDERABLES Final Result [facility] [place] [address] * (ABNORMAL) Basic metabolic panel (08/29/2017 3:05 PM CDT) Sodium 145 135 - 145 mmol/L [facility] Potassium, pl 5.0(H) 3.3 - 4.9 mmol/L [facility] Chloride 107 97 - 110 mmol/L [facility] CO2 30 22 - 32 mmol/L [facility] BUN 15 8 - 25 mg/dL [facility] Glucose 108 70 - 199 mg/dL [facility] Comment: Interpretive Data Fasting glucose >/= [...] Current interpretive data was last revised 2017. Creatinine 1.43(H) 0.80 - 1.30 mg/dL [facility] Calcium 9.6 8.5 - 10.3 mg/dL [facility] Anion gap 8 2 - 15 mmol/L [facility] Blood specimen (specimen) 08/29/2017 3:05 PM CDT 08/29/2017 3:18 PM CDT Narrative [facility] - 08/29/2017 3:47 PM CDT us Hillary Gama MD LAB BLOOD ORDERABLES Final Result Performing Organization Address City/[facility]/ZIP Co de Phone Number [facility] [place] [address] documented in this encounter Visit Diagnoses Not on filedocumented in this encounter Care Teams Inspector Exhaust Emissions Relationship Specialty Start Date End Date Timothy Banks MD PCP - General 07/08/16 documented as of this encounter
--- OUTSIDE RECORDS SUMMARY | 2024-04-09 17:30 | XMS_ITS | Encounter Summary ---
Author Organization [facility] Address [address] [place] [address] Care Team Providers Care Intertype Operator Name Role Phone Timothy Banks MD Primary Care Provider [phone] Encounter Details Date Type Department Care Team (Latest Contact Info) Description 07/11/2019 8:30 AM CDT Telemedicine [facility] Medical [facility] Cardiology [address] [place] [address] Jayro Kaminski MD [address] [phone] residential current use of 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 (Primary Dx); 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); Cardiac arrhythmia, unspecified cardiac arrhythmia type; QAMAR (obstructive sleep apnea) Social History Tobacco Use Types Packs/Day Years Used Date Smoking Tobacco: Never Smokeless Tobacco: Never Alcohol Use Standard Drinks/Week Comments Yes 0 (1 standard drink = 0.6 oz pur e alcohol) Sex and Gender Information Value Date Recorded Sex Assigned at Not on file 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 No / Unsure 07/08/2019 10:46 AM CDT documented as of this encounter Last Filed Vital Signs Vital Sign Reading Time Taken Comments Blood Pressure - - Pulse - - Temperature - - Respiratory Rate - - Oxygen Saturation - - Inhaled Oxygen Concentration - - Weight 113.4 kg (250 lb) 07/11/2019 8:28 AM CDT Height 185.4 cm (6' 1 ) 07/11/2019 8:28 AM CDT Body Mass Index 32.98 07/11/2019 8:28 AM CDT documented in this encounter Progress Notes * Jayro Kaminski MD - 07/11/2019 8:30 AM CDT [facility] DATE OF VISIT: 07/11/2019 CHIEF COMPLAINT No chief complaint on file. HPI Russ Kern is a 73 y.o. male with arrhythmia and PVCs. He was seen because of an upper respiratory tract infection and bronchitis by his primary care physician. Nurse practitioner noticed an irregular heartbeat an EKG showed right bundle branch block with PVCs. This led him to have an echocardiogram at [facility] which was normal except for moderate LVH. He did have mild left atrial enlargement. Mild mitral, aortic and tricuspid regurgitation. Diastolic dysfunction was present. He does have a history of pulmonary embolism, DVT and Bude filter. He had a recurrent DVT in [...] nocturnal dyspnea, orthopnea, palpitations. No Bleeding problems Telephone visit 07/11/2019: He does have some dyspnea on exertion with climbing up and down stairs but otherwise is feeling okay. He is using his CPAP routinely. He denies any chest pain, syncope, presyncope, paroxysmal nocturnal dyspnea orthopnea, edema or palpitations MEDICAL HISTORY Past Medical History: Diagnosis Date ??? HX OTHER MEDICAL recurrent DVT, gerd, s/p hiatal hernia surfery, ch; Comments: [facility] 03/31/2016 - ??? HX OTHER MEDICAL CKD; Comments: [facility] 03/31/2016 - Social History Tobacco Use [...] Allergies REVIEW OF SYSTEMS Review of Systems Cardiovascular: Positive for dyspnea on exertion. Negative for chest pain, irregular heartbeat, legswelling, near-syncope, palpitations, paroxysmal nocturnal dyspnea and syncope. PHYSICAL EXAM Height 185.4 cm (6' 1 ), weight 113.4 kg (250 lb). Body mass index is 32.98 kg/m??. Physical Exam Psychiatric: He has a normal mood and [...] Moderate but no evidence of failure 4. residential current use of 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 No bleeding [...] sooner as clinically indicated Jayro Kaminski MD, [facility] This was a telemedicine visit with Russ Kern which took place via Telephone. During the visit, I was located in my office of [facility] Cardiology [facility] and the patient was located at home. The session started at 8:41 a.m. and ended at 8:48 a.m.. The patient has been informed that the visit may not be secure and acknowledged the information. I have explained the option of participating in a telephone or video visit during the COVID-19 public health emergency to the patient. After being given an opportunity to ask questions about and discuss this type of visit, the patient verbally consented to proceeding with the telephone / video visit. The patient understands that this service replaces an office visit and they may be billed and/or responsible for any applicable copayments. documented in this encounter Plan of Treatment Not on file documented as of this encounter Visit Diagnoses Diagnosis residential current use of 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- Primary 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) Cardiac arrhythmia, unspecified cardiac arrhythmia type QAMAR (obstructive sleep apnea) Obstructive sleep apnea (adult) (pediatric) documented in this encounter Care Teams Intertype Operator Relationship Specialty Start Date End Date Timothy Banks MD PCP - General 07/08/16 documented as of this encounter
--- OUTSIDE RECORDS SUMMARY | 2024-04-09 17:30 | XMS_ITS | Encounter Summary ---
Author Organization [facility] Address [address] [place] [address] Phone Care Team Providers Care Video Game Script Writer Name Role Phone Timothy Banks MD Primary Care Provider [phone] Encounter Details Date Type Department Care Team (Latest Contact Info) Description 09/04/2018 1:45 PM CDT Office Visit [facility] Hematology [address] [facility] Advanced Medicine 7th [place] [address] [place] [address] Hillary Gama MD [address] [place], [place] [id number] 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) (Primary Dx); [facility] current use of 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 Social History Tobacco Use Types Packs/Day Years Used Date Smoking Tobacco: Never Smokeless Tobacco: Never Alcohol Use Standard Drinks/Week Comments Yes 0 (1 standard drink = 0.6 oz pur e alcohol) Sex and Gender Information Value Date Recorded Sex Assigned at Not on file 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 Gender Identity Male 01/12/2020 7:43 PM CDT Sexual Orientation Straight 01/12/2020 7: 43 PM CDT documented as of this encounter Last Filed Vital Signs Vital Sign Reading Time Taken Comments Blood Pressure 119/75 09/04/2018 1:25 PM CDT Pulse 81 09/04/2018 1:25 PM CDT Temperature 36.8 ??C (98.2 ??F) 09/04/2018 1:25 PM CD T Respiratory Rate 18 09/04/2018 1:25 PM CDT Oxygen Saturation 97% 09/04/2018 1:25 PM CDT Inhaled Oxygen Concentration - - Weight 111.6 kg (246 lb) 09/04/2018 1:25 PM CDT Height - - Body Mass Index 32.46 08/28/2018 8:21 AM CDT documented in this encounter Ordered Prescriptions Prescription Sig Dispense Quantity Refills Last Filled Start Date End Date apixaban (ELIQUIS) 5 mg tabletIndications:Diogenes ous 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 (VTE),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 Current Treatment: 1.?2004, DVT/PE following hiatal repair status post [place] filter placement. ??Warfarin started for 6 months. [...] for follow up of recurrent thromboembolic disease. ??To review, Mr. Kern states he initially developed a left lower extremity DVT and pulmonary embolism in 2004 following hiatal hernia repair. ??This required a [place] filter placement, as well as groin venous stenting. ??The patient was then placed on warfarin for 6 months, at which time, it wasdiscontinued. ??He then developed a recurrent right lower [...] extremity DVT. ??The patient then reports, in 2018, hedeveloped a small bowel obstruction believed to be secondary to viral gastroenteritis. ??As such, he required NG tube placement and was NPO. ??He received Lovenox while in the hospital. ??He was not d ischarged with a Lovenox bridge and was instructed to restart warfarin upon returning home. ??The patient states that, approximately 1 to 2 days after restarting warfarin, he then noticed a right lower extremity pain and was found to have a recurrent clot in the right lower extremity. ??He reportedcompliance with warfarin and that his INR was generally in the therapeutic range however following his initial visit with hematology in August 2017, it was deemed reasonable to switch him to Eliquis BID, as he would not require further monitoring and would not have dietary restrictions. He has done well with this since that time without evidence of bleeding or recurrent clots. He doesreport that he was recently called to undergo [...] times a day, Disp: 180 tablet, Rfl: 3 ??? budesonide-formoterol (SYMBICORT) 160-4.5 [...] resource strain: Not on file ??? Food insecurity: Worry: Not on file Inability: Not on file ??? Transportation needs: Medical: Not on file Non-medical: Not on file Tobacco Use ??? Smoking status: Never Smoker ??? Smokeless tobacco: Never Used Substance and Sexual Activity ??? Alcohol use: Yes ??? Drug use: No ??? Sexual activity: Not on file Lifestyle ??? Physical activity: Days per week: Not on file Minutes per session: Not on file ??? Stress: Not on file Relationships ??? Social connections: Talks on phone: Not on file Gets together: Not on file Attends anabaptist service: Not on file Active member of club or organization: Not on file Attends meetings of clubs or organizations: Not on file Relationship status: Not on file ??? Intimate partner violence: Fear of current or ex partner: Not on file Emotionally abused: Not on file Physically abused: Not on file Forced sexual activity: Not on file Other Topics Concern ??? Not on file Social History Narrative ??? Not on file VITALS: Vitals BP 119/75 (BP Location: Right arm) Pulse 81 Temp 36.8 ??C (98.2 ??F) (Oral) Resp 18 Wt 111.6 kg (246 lb) SpO2 97% BMI 32.46 kg/m?? PHYSICAL EXAM: Physical Exam Constitutional: He is oriented to person, place, and time. He appears well- developed and well-nourished. HENT: Head: Normocephalic and atraumatic. Eyes: Pupils are equal, round, and reactive [...] He has a normal mood and affect. His behavior is normal. LABORATORY DATA: Lab on 09/04/2018 Component Date Value Ref Range Status ??? Sodium 09/04/2018 144 135 - 145 mmol/L Final ??? Potassium, pl 09/04/2018 4.7 3.3 - 4.9 mmol/L Final ??? Chloride 09/04/2018 109 97 - 110 mmol/L Final ??? CO2 09/04/2018 27 22 - 32 mmol/L Final ??? Anion Gap 09/04/2018 8 2 - 15 mmol/L Final ??? BUN 09/04/2018 19 8 - 25 mg/dL Final ??? Creatinine 09/04/2018 1.68* 0.80 - 1.30 mg/dL Final ??? Glucose 09/04/2018 138 70 - 199 mg/dL Final ??? Calcium 09/04/2018 9.6 8.5 - 10.3 mg/dL Final ??? WBC 09/04/2018 5.4 3.8 - 9.8 K/cumm Final ??? Hgb 09/04/2018 13.1* 13.8 - 17.2 g/dL Final ??? Hct 09/04/2018 40.1* 40.7 - 50.3 % Final ??? Plt 09/04/2018 335 140 - 440 K/cumm Final ??? MPV 09/04/2018 9.5 6.8 - 10.4 fL Final ??? RBC 09/04/2018 4.55 4.50 - 5.70 M/cumm Final ??? MCV 09/04/2018 88.2 80.0 - 97.6 fL Final ??? MCH 09/04/2018 28.8 26.7 - 33.7 pg Final ??? MCHC 09/04/2018 32.7 32.7 - 35.5 g/dL Final ??? RDW CV 09/04/2018 13.9 11.8 - 14.6 % Final ??? NRBC Abs 09/04/2018 0.01 0.00 - 0.01 K/cumm Final ??? Neutrophil absolute 09/04/2018 3.2 1.8 - 6.6 K/cumm Final ??? Lymphocytes absolute 09/04/2018 1.4 1.2 - 3.3 K/cumm Final ??? Monocyte absolute 09/04/2018 0.6 0.2 - 1.2 K/cumm Final ??? Eosinophils absolute 09/04/2018 0.2 0.0 - 0.5 K/cumm Final ??? Basophils, abs 09/04/2018 0.0 0.0 - 0.2 K/cumm Final ??? Neutrophils 09/04/2018 58.7 % Final ??? Lymphocytes 09/04/2018 25.7 % Final ??? Monocytes 09/04/2018 10.4 % Final ??? Eosinophils 09/04/2018 4.3 % Final ??? Basophils 09/04/2018 0.9 % Final ASSESSMENT AND PLAN: Patient Active Problem List Diagnosis ??? Ventricular premature beats ??? penitentiary current use of 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 ??? RBBB ??? 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) ??? Hypertensive left ventricular hypertrophy ??? Left ventricular hypertrophy ??? Lightheadedness ??? Cardiac arrhythmia ??? Chronic renal insufficiency, stage III (moderate) (CMS/HCC) ??? Snoring ??? Hypersomnolence ??? Tiredness ??? Other fatigue ??? QAMAR (obstructive sleep apnea) ??? Bilateral lower extremity edema 1.?Thromboembolic disease. ??Mr. Kern is a 72 year old male with history of thromboembolic disease initially diagnosed in 2004 and managed with indefinite anticoagulation. ??He has hadrecurrent lower extremity DVTs and physical exam suggestive of chronic lower extremity DVTs. ??Nonetheless, per patient history, he appears to have had recurrent DVTs in the setting of warfarin discontinuation or following warfarin re-initiation without a bridge, likely due to initial procoagulant affects of warfarin. ??As such, he transitioned to Eliquis following his last visit in August 2017 and has done well on 5mg BID. He is nervous about a potential upcoming colonoscopy and we reassured him that if the testing was deemed necessary, we would plan to bridge him with Lovenox prior to the procedure. He will otherwise continue Eliquis and return to clinic in 12 months for continued evaluation, as he sees other specialists in the interim and has done very well on Eliquis now for a year. ? If Mr. Kern were to undergo colonoscopy within the next year our recommendations for bridging for procedure would be as follows: Stop Eliquis the day before colonoscopy. (Ex. If colonoscopy is on a Monday, his last day of Eliquis would be Monday evening). He would then start Lovenox the following morning at 1mg/kg and wouldtake that morning and evening. The morning of the colonoscopy, he would hold all blood thinners andresume Eliquis that evening. If there are any questions or concerns don't hesitate to contact us. DISPOSITION: The patient will return follow up in 12 months. They know to contact our office with any questions or concerns prior to the next follow up appointment. 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 Duplicate order 09/04/2018 apixaban (ELIQUIS) 5 mg tabletIndications: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),penitentiary current use of 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 Take 1 tablet (5 mg total) by mouth 2 (two) times a day. Reorder 02/05/2018 09/04/2018 documented as of this encounter Historical Medications * This list may reflect changes made after this encounter. Medication Sig Dispense Quantity Refills Last Filled Start D ate End Date multivitamin tablet 11/14/201601/21 added in this encounter Orders Appointment Requests Count Last Ordered Date Fi rst Ordered Date [facility]IC APPOINTMENT REQUEST 2 020 09/04/2018 [facility] APPOINTMENT 1 09/03/2019 documented in this encounter Care Teams Video Game Script Writer Relationship Specialty Start Date End Date Timothy Banks MD PCP - General 07/08/16 documented as of this encounter
--- OUTSIDE RECORDS SUMMARY | 2024-04-09 17:30 | XMS_ITS | Encounter Summary ---
Author Organization [facility] Address [address] [place] [address] Care Team Providers Care Insurance Sales Producer Name Role Phone Timothy Banks MD Primary Care Provider [phone] Reason for Visit * (Routine) - Closed Specialty Diagnoses / Procedures Referred By Contac t Referred To Contact Diagnoses SVT (supraventricular tachycardia) (HCC) Cardiac arrhythmia, unspecified cardiac arrhythmia type Procedures 48 HR Holter Monitor Jayro Kaminski MD Phone: tel: fax: Referral ID Status Reason Start Date Expiration Date Visits Re quested Visits Authorized [id number] Closed 07/03/2017 12/30/2017 1 1 Encounter Details Date Type Department Care Team (Latest Contact Info) Description 07/03/2017 1:30 PM CDT Ancillary Procedure [facility] Cardiology [address] [place] [address] SVT (supraventricular tachycardia) (CMS/HCC); Cardiac arrhythmia, unspecified cardiac arrhythmia type Social History Tobacco Use Types Packs/Day Years Used Date Smoking Tobacco: Never Smokeless Tobacco: Never Alcohol Use Standard Drinks/Week Comments Yes 0 (1 standard drink = 0.6 oz pur e alcohol) Sex and Gender Information Value Date Recorded Sex Assigned at Not on file 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 Indication SVT. Findings Total of 48 hours were recorded and analyzed. Predominant rhythm was sinus in origin with heart rate variability between 59 and 176 beats per minute with an average heart rate of 84 beats per minute.Some beats were conducted aberrantly and ventricular origin should be considered. The AV and IV conduction system was within normal limits. The longest RR interval was 1.3 seconds. No symptoms were reported. The overall quality of the study was fair. A total of 12 ventricular ectopic beats were noted and all of these were in single beat form. No sustained or nonsustained runs of ventricular arrhythmia. Frequent supraventricular ectopy was noted totaling 5818 beats (2.4%). This consisted of 9 atrial runs totaling 33 beats with the longest run being for 5 beats. There was also 37 atrial pairs, 5470 single PACs, 18 beats in atrial bigeminy and 223 beats in atrial trigeminy. No atrial fibrillation. Several times with the patient was reporting event was noted. In reviewing the diary log, it appears that the patient was doing walking at the time. These episodes generally correlated to sinus tachycardia with premature atrial contractions. On 2 occasions, there were no ectopy noted. Conclusion 1. Underlying normal sinus rhythm with average heart rate of 84 beats per minute. 2. Low-frequency ventricular ectopy all in isolated form. 3. Frequent supraventricular ectopy including 9 short atrial runs, 37 atrial pairs, atrial bigeminy, atrial trigeminy and 5470 single PACs. 4. The patient reported event in the diary were all analyzed. This appears to have been while the patient is walking and generally correlated to sinus rhythm or sinus tachycardia with premature atrial contractions. documented in this encounter Plan of Treatment Pending Results Name Type Priority Associated Diagnoses Date /Time 48 HR Holter Monitor Cardiac Services Routine SVT (supraventricular tachycardia) (CMS/HCC) Cardiac arrhythmia, unspecified cardiac arrhythmia type 07/03/2017 1:29 PM CDT documented as of this encounter Visit Diagnoses Diagnosis SVT (supraventricular tachycardia) (HCC) Other specified cardiac dysrhythmias Cardiac arrhythmia, unspecified cardiac arrhythmia type documented in this encounter Care Teams Insurance Sales Producer Relationship Specialty Start Date End Date Timothy Banks MD PCP - General 07/08/16 documented as of this encounter
--- OUTSIDE RECORDS SUMMARY | 2024-04-09 17:30 | XMS_ITS | Encounter Summary ---
Author Organization [facility] Address [address] [place] [address] Care Team Providers Care Endoscopy Specialty Technician Name Role Phone Timothy Banks MD Primary Care Provider [phone] Reason for Visit * Reason Comments Follow-up 6 mo f/u on LVH, RBB B Encounter Details Date Type Department Care Team (Latest Contact Info) Description 01/26/2021 9:15 AM CDT Office Visit [facility] Cardiology [address] [place] [address] Jayro Kaminski MD [facility] [phone] Bilateral lower extremity edema (Primary Dx); [facility] current use of 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; QAMAR (obstructive sleep apnea); Hypertensive left ventricular hypertrophy, without heart failure; 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) Social History Tobacco Use Types Packs/Day Years Used Date Smoking Tobacco: Never Smokeless Tobacco: Never Alcohol Use Standard Drinks/Week Comments Yes 0 (1 standard drink = 0.6 oz pur e alcohol) Sex and Gender Information Value Date Recorded Sex Assigned at Not on file 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 Gender Identity Male 01/12/2020 7:43 PM CDT Sexual Orientation Straight 01/12/2020 7: 43 PM CDT documented as of this encounter Last Filed Vital Signs Vital Sign Reading Time Taken Comments Blood Pressure 122/76 01/26/2021 9:21 AM CDT Pulse 88 01/26/2021 9:21 AM CDT Temperature - - Respiratory Rate - - Oxygen Saturation 98% 01/26/2021 9:21 AM CDT Inhaled Oxygen Concentration - - Weight 114.8 kg (253 lb) 01/26/2021 9:21 AM CDT Height 185.4 cm (6' 1 ) 01/26/2021 9:21 AM CDT Body Mass Index 33.38 01/26/2021 9:21 AM CDT documented in this encounter Progress Notes * Jayro Kaminski MD - 01/26/2021 9:15 AM CDT [facility] DATE OF VISIT: 01/26/2021 CHIEF COMPLAINT Chief Complaint Patient presents with ??? Follow-up 6 mo f/u on LVH, RBBB HPI Russ Kern is a 75 y.o. male with arrhythmia and PVCs. He was seen because of an upper respiratory tract infection and bronchitis by his primary care physician. Nurse practitioner noticed an irregular heartbeat an EKG showed right bundle branch block with PVCs. This led him to have an echocardiogram at [facility] which was normal except for [...] dyspnea orthopnea, edema or palpitations Follow-up note 01/26/2021: He denies any chest pain, unusual shortness breath, syncope, presyncope,paroxysmal nocturnal dyspnea, orthopnea, unusual edema or palpitations. MEDICAL HISTORY Past Medical History: Diagnosis Date ??? HX OTHER MEDICAL recurrent DVT, gerd, s/p hiatal hernia surfery, ch; Comments: [facility] 03/31/2016 - ??? HX OTHER MEDICAL CKD; Comments: [facility] 03/31/2016 - Social History Tobacco Use [...] MG TABLET TAKE 1 TABLET BY MOUTH TWICE DAILY FOLIC ACID 0.8 MG CAPSULE 0.8 [...] for environmental allergies. PHYSICAL EXAM Blood pressure 122/76, pulse 88, height 185.4 cm (6' 1 ), weight 114.8 kg (253 lb), SpO2 98 %. Body mass index is 33.38 kg/m??. Physical Exam Vitals reviewed. HENT: Head: [...] CPAP 9. History of COVID -19 PLAN/RECOMMENDATIONS I did tell him to take a furosemide today and tomorrow as his swelling seems to be a bit worse. Otherwise furosemide on a p.r.n. basis. He is doing well and is stable at this point. I recommend he continue his current cardiac regimen without change and follow-up in 6 months or sooner as clinically indicated Jayro Kaminski MD, [facility] documented in this encounter Plan of Treatment Not on file documented as of this encounter Visit Diagnoses Diagnosis Bilateral lower extremity edema- Primary [facility] current use of 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 QAMAR (obstructive sleep apnea) Obstructive sleep apnea (adult) (pediatric) Hypertensive left ventricular hypertrophy, without heart failure 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) documented in this encounter Care Teams Endoscopy Specialty Technician Relationship Specialty Start Date End Date Timothy Banks MD PCP - General 07/08/16 documented as of this encounter
--- OUTSIDE RECORDS SUMMARY | 2024-04-09 17:30 | XMS_ITS | Encounter Summary ---
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 (Primary Dx); 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); Hypertensive left ventricular hypertrophy, without heart failure; Ventricular premature beats; RBBB; QAMAR (obstructive sleep apnea); Bilateral lower extremity edema; Lipid screening Social History Tobacco Use Types Packs/Day Years Used Date Smoking Tobacco: Never Smokeless Tobacco: Never Alcohol Use Standard Drinks/Week Comments Yes 0 (1 standard drink = 0.6 oz pur e alcohol) Sex and Gender Information Value Date Recorded Sex Assigned at Not on file 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 Gender Identity Male 01/12/2020 7:43 PM CDT Sexual Orientation Straight 01/12/2020 7: 43 PM CDT documented as of this encounter Last Filed Vital Signs Vital Sign Reading Time Taken Comments Blood Pressure 124/76 08/28/2018 8:21 AM CDT Pulse 87 08/28/2018 8:21 AM CDT Temperature - - Respiratory Rate - - Oxygen Saturation 97% 08/28/2018 8:21 AM CDT Inhaled Oxygen Concentration - - Weight 112.9 kg (249 lb) 08/28/2018 8:21 AM CDT Height 185.4 cm (6' 1 ) 08/28/2018 8:21 AM CDT Body Mass Index 32.85 08/28/2018 8:21 AM CDT documented in this encounter Ordered Prescriptions Prescription Sig Dispense Quantity Refills Last Filled Start Date End Date furosemide (LASIX) 20 mg tabletIndications: Bilateral lower extremity edema Take 1 tablet (20 mg total) by mouth daily as needed (swelling) 30 tablet 1 08/28/2018 01/23/2024 documented in this encounter Progress Notes * Jayro Kaminski MD - 08/28/2018 8:15 AM CDT [facility] DATE OF VISIT: 08/28/2018 CHIEF COMPLAINT Chief Complaint Patient presents with ??? Follow-up 6 mo f/u on VTE, LVH HPI Rsus Kern is a 72 y.o. male with arrhythmia and PVCs. He was seen because of an upper respiratory tract infection and bronchitis by his primary care physician. Nurse practitioner noticed an irregular heartbeat an EKG showed right bundle branch block with PVCs. This led him to have an echocardiogram at [facility] which was normal except for moderate LVH. He did have mild left atrial enlargement. Mild mitral, aortic and tricuspid regurgitation. Diastolic dysfunction was present. He does have a history of pulmonary embolism, DVT and [place] filter. He had a recurrent DVT in [...] nocturnal dyspnea, orthopnea, palpitations. No Bleeding problems MEDICAL HISTORY Past Medical History: Diagnosis Date ??? HX OTHER MEDICAL recurrent DVT, gerd, s/p hiatal hernia [facility], ; Comments: [facility] 03/31/2016 - ??? HX OTHER MEDICAL CKD; Comments: [facility] 03/31/2016 - Social History Tobacco Use [...] for environmental allergies. PHYSICAL EXAM Blood pressure 124/76, pulse 87, height 185.4 cm (6' 1 ), weight 112.9 kg (249 lb), SpO2 97 %. Body mass index is 32.85 kg/m??. Physical Exam Constitutional: He is oriented [...] of motion. He exhibits edema. 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 Cardiac arrhythmia, unspecified cardiac arrhythmia type Low-frequency frequency ventricular ectopy. High frequency supraventricular ectopy and brief atrialruns. Asymptomatic however. 6. RBBB 7. SVT: No sustained symptoms 8. Obstructive sleep apnea: Now on CPAP PLAN/RECOMMENDATIONS 1. Start furosemide 20 mg p.o. Daily p.r.n. Edema. Should take this on a routine basis for the nextweek and then again on at that point as on an as-needed basis. 2. Follow-up in 2 months or sooner as clinically indicated aJyro Kaminski MD, [facility] documented in this encounter Miscellaneous Notes * Addendum Note - Leslie Sam MA - 08/28/2018 8:15 AM CDTAddended by: LESLIE SAM on: 08/28/2018 09:23 AM Modules accepted: Orders documented in this encounter Plan of Treatment Not on file documented as of this encounter Procedures Procedure Name Priority Date/Time Associated Diagnosis Comments POCT LIPID PANEL Routine 08/28/2018 9:22 AM CDT Lipid screening documented in this encounter Results * POCT lipid panel (08/28/2018 9:22 AM CDT) Cholesterol, POC 131 mg/dL HDL, POC 34 mg/dL Triglycerides, POC 81 mg/dL LDL Cholesterol POC 81 mg/dL Chol/HDL Ratio, POC 3.8 Non-HDL Cholesterol, POC 97 mg/dL Cholesterol Total, POC 131 mg/dL Blood specimen (specimen) 08/28/2018 9:22 AM CDT us Jayro Kaminski MD POINT OF CARE TEST ORDERA BLES Final Result documented in this encounter Visit Diagnoses Diagnosis custodial current use of 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- Primary 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) Hypertensive left ventricular hypertrophy, without heart failure Ventricular premature beats Other premature beats RBBB QAMAR (obstructive sleep apnea) Obstructive sleep apnea (adult) (pediatric) Bilateral lower extremity edema Lipid screening Screening for lipoid disorders documented in this encounter Care Teams Gi Asst Relationship Specialty Start Date End Date Timothy Banks MD PCP - General 07/08/16 documented as of this encounter
--- OUTSIDE RECORDS SUMMARY | 2024-04-09 17:30 | XMS_ITS | Encounter Summary ---
Author Organization [facility] Address [address] [place] [address] Care Team Providers Care Exterminator Termite Name Role Phone Timothy Banks MD Primary Care Provider Encounter Details Date Type Department Care Team (Late st Contact Info) Description 07/03/2017 Orders Only [facility] [address] [facility] [address] [place] [address] Provider, MD Dusty [address] [place], [place] [id number] Social History Tobacco Use Types Packs/Day Years Used Date Smoking Tobacco: Never Smokeless Tobacco: Never Alcohol Use Standard Drinks/Week Comments Yes 0 (1 standard drink = 0.6 oz pur e alcohol) Sex and Gender Information Value Date Recorded Sex Assigned at Not on file 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 Gender Identity Male 01/12/2020 7:43 PM CDT Sexual Orientation Straight 01/12/2020 7: 43 PM CDT documented as of this encounter Plan of Treatment Not on file documented as of this encounter Procedures Procedure Name Priority Date/Time Associated Diagnosis Comments LIPID PANEL Routine 09/07/2016 9:07 AM CDT documented in this encounter Results * Lipid panel (09/07/2016 9:07 AM CDT) SCRIBED Cholesterol, Total 163 100 - 199 [facility] SCRIBED HDL 38 >39 [facility] SCRIBED LDL 97 <100 [facility] SCRIBED Triglycerides 141 <150 [facility] Blood specimen (specimen) us Historical Provider LAB BLOOD ORDERABLES Edit ed Result - Final [facility] documented in this encounter Visit Diagnoses Not on filedocumented in this encounter Care Teams Exterminator Termite Relationship Specialty Start Date End Date Timothy Banks MD PCP - General 07/08/16 documented as of this encounter
--- OUTSIDE RECORDS SUMMARY | 2024-04-09 17:30 | XMS_ITS | Encounter Summary ---
Author Organization [facility] Address [address] [place] [address] Phone Care Team Providers Care Professor Of Environmental Engineering Name Role Phone Timothy Banks MD Primary Care Provider + [phone] Reason for Visit * Oncology (Routine) - Authorized Specialty Diagnoses / Procedures Referred By Contshakila t Referred To Contact Oncology Diagnoses 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) Procedures ONCBCN ARM DRAW APPT ONC LAB ONLY Hillary Gama MD [address] [place] [address] Phone: tel: fax: Hillary Gama MD [address] [address] Phone: tel: fax: Referral ID Status Reason Start Date Expiration Date Visits Requested Visits Authorized [id number] Authorized Specialty Services Required 04/10/2018 04/09/2024 99 99 Encounter Details Date Type Department Care Team (Late st Contact Info) Description 09/01/2020 9:30 AM CDT Lab [facility] Oncology [address] [facility] 7th [place] [address] [place] [id number] Brittany Lerner NP [address] [place] [address] 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); 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 Social History Tobacco Use Types Packs/Day Years Used Date Smoking Tobacco: Never Smokeless Tobacco: Never Alcohol Use Standard Drinks/Week Comments Yes 0 (1 standard drink = 0.6 oz pur e alcohol) Sex and Gender Information Value Date Recorded Sex Assigned at Not on file 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 Gender Identity Male 01/12/2020 7:43 PM CDT Sexual Orientation Straight 01/12/2020 7: 43 PM CDT documented as of this encounter Plan of Treatment Not on file documented as of this encounter Procedures Procedure Name Priority Date/Time Associated Diagnosis Comments DIFFERENTIAL AUTO Routine 09/01/2020 9:2 6 AM CDT 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, [address] [place] [phone] Lymphocyte abs 1.1(L) 1.2 - 3.3 K/cumm [facility] Comment:Testing performed by : [facility], [address] [place] [phone] Monocyte abs 1.1 0.2 - 1.2 K/cumm [facility] Comment:Testing performed by : [facility], [address] [place] [phone] Eosinophil abs 0.2 0.0 - 0.5 K/cumm [facility] Comment:Testing performed by : [facility], [address] [place] [phone] Basophil abs 0.1 0.0 - 0.2 K/cumm [facility] Comment:Testing performed by : [facility], [address] [place] [phone] Neutrophil pct 52.7 % [facility] Comment: Interpretive Data Percent cell count reference ranges are not reported, since discordance with absolute values may lead to misinterpretation of CBC data. Current Interpretive Data was last revised on 2017. Testing performed by: [facility], [address] [place] [phone] Lymphocyte pct 22.1 % [facility] Comment: Interpretive Data Percent cell count reference ranges are not reported, since discordance with absolute values may lead to misinterpretation of CBC data. Current Interpretive Data was last revised on 2017. Testing performed by: [facility], [address] [place] [phone] Monocyte pct 20.9 % [facility] Comment:Testing performed by : [address] [phone] Eosinophil pct 3.2 % [facility] Comment:Testing performed by : [facility], [address] [place] [phone] Basophil pct 1.1 % [facility] Comment:Testing performed by : [facility], [address] [place] [phone] Blood specimen (specimen) 09/01/2020 9:26 AM CDT 09/01/2020 9:27 AM CDT Brittany Lerner [facility] LAB BLOOD ORDERABLES Final Result [facility] [place] [address] * (ABNORMAL) CBC with auto differential (09/01/2020 9:26 AM CDT) WBC 5.1 3.8 - 9.8 K/cumm [facility] Comment:Testing performed by : [address] [phone] Hgb 12.3(L) 13.8 - 17.2 g/dL [facility] Comment:Testing performed by : [facility], [address] [place], [place] [phone] Hct 37.8(L) 40.7 - 50.3 % [facility] Comment:Testing performed by : [facility], [address] [place], [place] [phone] Plt 290 140 - 440 K/cumm [facility] Comment:Testing performed by : [facility], [address] [place] [address] MPV 10.1 6.8 - 10.4 fL [facility] Comment:Testing performed by : [place] [address] RBC 4.36(L) 4.50 - 5.70 M/cumm [facility] Comment:Testing performed by : [place] [address] MCV 86.8 80.0 - 97.6 fL [facility] Comment:Testing performed by : [facility], [address] [place], [place] [phone] MCH 28.2 26.7 - 33.7 pg [facility] Comment:Testing performed by : [place] [address] MCHC 32.5(L) 32.7 - 35.5 g/dL [facility] Comment:Testing performed by : [place] [address] RDW CV 16.3(H) 11.8 - 14.6 % [facility] Comment:Testing performed by : [facility], [address] [place], [place] [phone] NRBC abs 0.00 0.00 - 0.01 K/cumm [facility] Comment:Testing performed by : [place] [phone] Blood specimen (specimen) 09/01/2020 9:26 AM CDT 09/01/2020 9:27 AM CDT Brittany Lerner CAR [facility]TER LAB BLOOD ORDERABLES Final Result Performing Organization Address [facility] [address]/[facility] de Phone Number [facility] [place] [address] * Reticulocyte Count (09/01/2020 9:26 AM CDT) [facility] Retics, absolute 0.046 0.020 - 0.087 M/cumm [facility] Comment:Testing performed by : [facility], [address] [place] [phone] Retics 1.06 0.50 - 1.80 % [facility] Comment:Testing performed by : [facility], [address] [place] [phone] Blood specimen (specimen) 09/01/2020 9:26 AM CDT 09/01/2020 9:27 AM CDT Result [facility] Brittany Lerner CAR P[facility]TER LAB BLOOD ORDERABLES Final Result Performing Organization Address [facility] [address]/[facility] de Phone Number [facility] Department [place] [address] * Basic metabolic panel (09/01/2020 9:26 AM CDT) [facility] Sodium 143 135 - 145 mmol/L [facility] Comment:Testing performed by : [facility], [address] [place] [phone] Potassium, pl 4.8 3.3 - 4.9 mmol/L [facility] Comment:Testing performed by : [facility], [address] [place] [phone] Chloride 107 97 - 110 mmol/L [facility] Comment:Testing performed by : [facility], [address] [place] [phone] CO2 30 22 - 32 mmol/L [facility] Comment:Testing performed by : [facility], [address] [place] [phone] Anion gap 6 2 - 15 mmol/L [facility] Comment:Testing performed by : [facility], [address] [place] [phone] BUN 12 8 - 25 mg/dL [facility] Comment:Testing performed by : [facility], [address] [place] [phone] Creatinine 1.21 0.80 - 1.30 mg/dL [facility] Comment:Testing performed by : [facility], [address] [place] [phone] Glucose 94 70 - 199 mg/dL [facility] Comment: Interpretive Data Fasting glucose [...] was last revised 2017. Testing performed by: [facility], [address] [place] [phone] Calcium 9.7 8.5 - 10.3 mg/dL [facility] Comment:Testing performed by : [facility], [address] [place] [phone] Blood specimen (specimen) 09/01/2020 9:26 AM CDT 09/01/2020 9:27 AM CDT Brittany Lerner CAR PORTER LAB BLOOD ORDERABLES Final Result Performing Organization Address City/State/[facility] Co de Phone Number [facility] [place] [address] documented in this encounter Visit Diagnoses Diagnosis 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) [facility] current use of 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 documented in this encounter Orders Outpatient Referral Count Last Ordered Date Fir st Ordered Date AMB REFERRAL TO ONCOLOGY 1 09/01/2020 Appointment Requests Count Last Ordered Date Fi rst Ordered Date ONCBCN LAB APPOINTMENT 1 09/01/2020 documented in this encounter Care Teams Professor Of Environmental Engineering Relationship Specialty Start Date End Date Timothy Banks MD PCP - General 07/08/16 documented as of this encounter
--- OUTSIDE RECORDS SUMMARY | 2024-04-09 17:30 | XMS_ITS | Encounter Summary ---
Author Organization [facility] Address [address] [place] [address] Phone Care Team Providers Care Client Care Coordinator Name Role Phone Timothy Banks MD Primary Care Provider + [phone] Encounter Details Date Type Department Care Team (Late st Contact Info) Description 08/25/2017 Orders Only [facility] ProviderDusty MD [address] [place] [phone] Social History Tobacco Use Types Packs/Day Years Used Date Smoking Tobacco: Never Smokeless Tobacco: Never Alcohol Use Standard Drinks/Week Comments Yes 0 (1 standard drink = 0.6 oz pur e alcohol) Sex and Gender Information Value Date Recorded Sex Assigned at Not on file 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 Historical Provider LAB BLOOD ORDERABLES Jamila l Result documented in this encounter Visit Diagnoses Not on filedocumented in this encounter Care Teams Client Care Coordinator Relationship Specialty Start Date End Date Timothy Banks MD PCP - General 07/08/16 documented as of this encounter
== END 2024-04-02 12:00 | disposition home or self-care (01) ==
PROVIDERS: Student in an Organized Health Care Education/Training Program; Emergency Provider Physician Assistant; PCP Family Medicine
DX: Z03.89 Encounter for observation for other suspected diseases and conditions ruled out (principal); J44.9 Chronic obstructive pulmonary disease, unspecified; Z86.718 Personal history of other venous thrombosis and embolism
CPT/HCPCS: 36415; 80053; 83690; 85025; 96360; 99283; J7030

== ENCOUNTER 2024-04-04 08:21 | Outpatient (CLI) | payer MEDICARE, SELFPAY ==
[2024-04-04 08:34] LABS: Hematocrit 35.9 % (42.0-52.0); Hemoglobin 11.6 g/dL (14.0-18.0); Immature Granulocyte Absolute 0.01 K/mm3 (0.00-0.031); Immature Granulocyte Percent A 2.2 % (0-0.5); Lymphocytes Absolute Auto 0.35 K/mm3 (0.9-3.2); Lymphocytes Percent Auto 76.1 % (18.3-44.2); Mean Corpuscular HGB Conc 32.3 g/dl (32-36); Mean Corpuscular Hemoglobin 28.6 pg (26-34); Mean Corpuscular Volume 88.4 fl (80-100); Mean Platelet Volume 10.2 fl (7.4-10.4); Monocytes Percent Auto 2.2 % (2.6-8.5); Neutrophils Absolute Auto 0.1 K/mm3 (1.3-6.7); Neutrophils Percent Auto 19.5 % (45.5-73.1); Platelet Count Result 67 k/mm3 (150-375); Red Blood Count 4.06 M/mm3 (4.6-6.20); Red Cell Distribution Width 17.5 % (11.5-14.5)
[2024-04-04 08:44] LABS: White Blood Count 0.5 K/mm3 (4.5-10.0)
[2024-04-04 11:15] LABS: Anion Gap 3 mmol/L (4-12); Blood Urea Nitrogen 14 mg/dL (9-20); Calcium 9.3 mg/dL (8.4-10.2); Carbon Dioxide 30 mmol/L (22-30); Chloride 107 mmol/L (98-107); Estimated Glomerular Filt Rate 58; Glucose 128 mg/dL (65-110); Potassium 3.9 mmol/L (3.4-5.0); Sodium 140 mmol/L (137-145)
--- OUTSIDE RECORDS SUMMARY | 2024-04-11 13:49 | XMS_ITS | Patient Health Summary ---
Author Organization [facility] Address [address] [facility] [place] [address] Care Team Providers Care Heart Doctor Name Role Phone Timothy Banks MD Primary Care Provider [phone] Cindy Garcia MD Unavailable Note from [facility],non-owned Affiliates and Associated Physician Practices is amultiple site organization consisting of ambulatory clinics and hospital sitesin [place], [place], [place] and [place]. This disclosure is being madepursuant to the Care Everywhere program and may not contain all information available regarding this patient. Last updated 17.[facility] Allergies * Contrast-Gadolinium Agents For Mri(Urticaria) [...] Not Answered Alcohol Use Standard Drinks/Week Comments Not Currently 0 (1 standard drink = 0.6 oz pur e alcohol) AUDIT-C Answer Date Recorded Q1: How often do you have a drink containing alcohol? Never 04/11/2024 Q2: How many drinks containi ng alcohol do you have on a typical day when you are drinking? Patient does not drink Q3: How often do you have si x or more drinks on one occasion? Never 04/11/2024 Overall Financial Resource Strain (CARDIA) Answe r Date Recorded How hard is it for you to pa y for the very basics like food, housing, medical care, and heating? Not hard at all 03/13/2024 [facility] Occupat ional Health - Occupational Stress [...] any time in the past [address] [facility], were you homeless or living in a residential (including now)? No 03/13/2024 Sex and Gender Information Value Date Recorded Sex Assigned at Male 03/05/2024 8:04 AM SWISS TYPE SCREW MACHINE OPERATOR Gender Identity Male 03/05/2024 8:04 AM SWISS TYPE SCREW MACHINE OPERATOR Sexual Orientation Straight 03/05/2024 8: 04 AM SWISS TYPE SCREW MACHINE OPERATOR Last Filed Vital Signs Vital Sign Reading Time Taken Comments Blood Pressure 129/75 04/11/2024 10:30 AM SWISS TYPE SCREW MACHINE OPERATOR Pulse 72 04/11/2024 10:30 AM SWISS TYPE SCREW MACHINE OPERATOR Temperature 36.8 ??C (98.2 ??F) 04/11/2024 9:35 AM CS T Respiratory Rate 16 04/11/2024 10:30 AM SWISS TYPE SCREW MACHINE OPERATOR Oxygen Saturation 93% 04/11/2024 10:30 AM SWISS TYPE SCREW MACHINE OPERATOR Inhaled Oxygen Concentration - - Weight 96.8 kg (213 lb 4.8 oz) 04/11/2024 6:54 A M SWISS TYPE SCREW MACHINE OPERATOR Height 182.9 cm (6') 04/11/2024 6:54 AM SWISS TYPE SCREW MACHINE OPERATOR Body Mass Index 28.93 04/11/2024 6:54 AM SWISS TYPE SCREW MACHINE OPERATOR Medical Devices Implanted Type Area Acoustic Intelligence Specialist Device Identifier Shelf Expiration Date Model / Serial / Lot Port Implinfn Powerport Clrvu Argd Kandy Implanted:Qty : 1 on 04/11/2024 by Davian Marshall MD at [facility] Catheters Right: Chest Wall [employer] [id number] 02/07/2025 [id number] / / [id number] Procedures * COMPREHENSIVE METABOLIC PANEL(Performed 04/11/2024) 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, 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) * CBC W AUTO DIFFERENTIAL(Performed 04/11/2024) 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, 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) * PT-INR [facility](Performed 04/11/2024) 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), MDS (myelodysplastic syndrome) (HCC), Acute myeloid leuk w multilin dysplasia, 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) * PHOSPHORUS BLOOD(Performed 04/01/2024) Performed for Tumor [...] CONTRAST(Performed 03/15/2024) Performed for MDS (myelodysplastic syndrome) ([facility]) * MYELOID MALIGNANCIES MUTATION PNL(Performed 03/15/2024) Performed for MDS (myelodysplastic syndrome) ([facility]) * FISH MDS PANEL BLOOD OR BONE MARROW(Performed 03/15/2024) Performed for MDS (myelodysplastic syndrome) ([facility]) * FISH AML PANEL BLOOD OR BM RFLX PML/DANTE(Performed 03/15/2024) Performed for MDS (myelodysplastic syndrome) ([facility]) * FLOW CYTOMETRY BONE MARROW(Performed 03/15/2024) Performed for MDS (myelodysplastic syndrome) ([facility]) * BONE MARROW BIOPSY (STL)(Performed 03/15/2024) Performed for MDS (myelodysplastic syndrome) ([facility]) * FISH PML/DANTE PANEL(Performed 03/15/2024) Performed for MDS (myelodysplastic syndrome) ([facility]) * CHROMOSOME ANALYSIS BONE MARROW PANEL(Performed 03/15/2024) Performed for MDS (myelodysplastic syndrome) ([facility]) * LAB MISC TEST (NOT [...] 12-LEAD(Performed 03/14/2024) Performed for MDS (myelodysplastic syndrome) ([facility]) * FLOW CYTOMETRY BLOOD PROFILE(Performed 03/14/2024) Performed for MDS (myelodysplastic syndrome) ([facility]) * DIFFERENTIAL MANUAL(Performed 03/13/2024) * [...] BLD(Performed 03/04/2024) Performed for MDS (myelodysplastic syndrome) (HCC) * FISH PML/DANTE PANEL(Performed 03/04/2024) Performed for MDS (myelodysplastic syndrome) (HCC) * FISH AML PANEL BLOOD OR BM RFLX PML/DANTE(Performed 03/04/2024) Performed for MDS (myelodysplastic syndrome) (HCC) * FISH AML+MDS PANEL BLOOD OR BONE MARROW(Performed 03/04/2024) Performed for MDS (myelodysplastic syndrome) (HCC) * MYELOID MALIGNANCIES MUTATION PNL(Performed 03/04/2024) Performed for MDS (myelodysplastic syndrome) (HCC) * DIFFERENTIAL MANUAL(Performed 03/04/2024) Performed for Neutropenia, unspecified type (HCC) * BCR-ABL1 CML+AML PCR QUANT PNL(Performed 03/04/2024) Performed for MDS (myelodysplastic syndrome) (HCC) * CYTOMEGALOVIRUS ANTIBODY IGG BLOOD(Performed 03/04/2024) Performed for MDS (myelodysplastic syndrome) (HCC) * HEPATITIS C ANTIBODY(Performed 03/04/2024) Performed for [...] DERMATOPATHOLOGY(Performed 09/27/2023) * DERMATOPATHOLOGY(Performed 09/24/2013) Results * (ABNORMAL) CBC WITH DIFFERENTIAL (04/11/2024 10:54 AM SWISS TYPE SCREW MACHINE OPERATOR) Only the most recent of13 resultswithin the time period is included. WBC 0.2(LL) 4.0 - 10.7 x10E9/L 04/11/2024 12:38 PM [facility] Comment:No differential repo rted. WBC count <0.5 RBC Count 3.53(L) 4.30 - 5.80 x10E12/L 04/11/2024 12:38 PM [facility] Hemoglobin 10.0(L) 13.3 - 17.5 g/dL 04/11/2024 12:38 PM [facility] Hematocrit 30.4(L) 38.7 - 51.1 % 04/11/2024 12:38 PM [facility] MCV 86.1 80.0 - 98.0 fL 04/11/2024 12:38 PM [facility] MCH 28.3 26.7 - 33.6 pg 04/11/2024 12:38 PM [facility] MCHC 32.9 31.7 - 36.3 g/dL 04/11/2024 12:38 PM [facility] RDW-CV 18.3(H) 11.3 - 14.8 % 04/11/2024 12:38 PM SWISS TYPE SCREW MACHINE OPERATOR [facility] Platelet Count 89(L) 150 - 420 x10E9/L 04/11/2024 12:38 PM [facility] MPV 9.8 7.8 - 11.4 fL 04/11/2024 12:38 PM [facility] Blood BLOOD SPECIMEN / Unknown Venipuncture / Unknown 04/11/2024 10:54 AM SWISS TYPE SCREW MACHINE OPERATOR 04/11/2024 11:42 AM SWISS TYPE SCREW MACHINE OPERATOR Cindy Garcia MD LAB - HEMATOLOGY ORD ERABLES [facility] [address] [place] [address], [facility] [phone] * (ABNORMAL) COMPREHENSIVE METABOLIC PANEL (04/11/2024 10:54 AM [facility]) Only the most recent of15 resultswithin the time period is included. BUN 12 7 - 26 mg/dL 04/11/2024 1:41 PM [facility] Creatinine 1.09 0.71 - 1.16 mg/dL 04/11/2024 1:41 PM [facility] Sodium 142 136 - 145 mmol/L 04/11/2024 1:41 PM [facility] Potassium 3.5 3.5 - 4.5 mmol/L 04/11/2024 1:41 PM [facility] Chloride 110(H) 98 - 107 mmol/L 04/11/2024 1:41 PM [facility] CO2 22 22 - 29 mmol/L 04/11/2024 1:41 PM [facility] Glucose 130(H) 70 - 99 mg/dL 04/11/2024 1:41 PM [facility] Calcium 8.7 8.4 - 10.2 mg/dL 04/11/2024 1:41 PM [facility] Protein Total 5.8(L) 6.0 - 8.3 g/dL 04/11/2024 1:41 PM [facility] Albumin 3.2(L) 3.4 - 5.0 g/dL 04/11/2024 1:41 PM [facility] Bilirubin Total 1.0 0.2 - 1.2 mg/dL 04/11/2024 1:41 PM [facility] Alkaline Phosphatase 108 40 - 150 U/L 04/11/2024 1:41 PM [facility] ALT 19 5 - 55 U/L 04/11/2024 1:41 PM [facility] AST 16 5 - 34 U/L 04/11/2024 1:41 PM [facility] Anion Gap 10 6 - 16 04/11/2024 1:41 PM [facility] BUN/Creatinine Ratio 11 7 - 23 04/11/2024 1:41 PM [facility] Osmolality Calculated 296(H) 275 - 295 mOsm/kg 04/11/2024 1:41 PM [facility] Albumin/Globulin Ratio 1.2 1.1 - 2.3 04/11/2024 1:41 PM [facility] eGFR by CKD-EPI 69(L) >=90 mL/min/1.7 3 m2 04/11/2024 1:41 PM [facility] Blood BLOOD SPECIMEN / Unknown Venipuncture / Unknown 04/11/2024 10:54 AM SWISS TYPE SCREW MACHINE OPERATOR 04/11/2024 11:42 AM SWISS TYPE SCREW MACHINE OPERATOR Cindy Garcia MD LAB - CHEMISTRY ORDE [facility] Organization Address City/State/ZIP Co de Phone Number [facility] [address] [place] [address], [facility] [phone] * PT-INR [facility] (04/11/2024 7:20 AM SWISS TYPE SCREW MACHINE OPERATOR) Only the most recent of11 resultswithin the time period is included. PT 14.6 12.1 - 14.8 Seconds 04/11/2024 7:56 AM [facility] INR 1.2 See Comment 04/11/2024 7:56 AM [facility] Comment:The suggested therap eutic range for standard coumadin (warfarin) therapy is an INR of 2.0-3.0. For high-risk patients (Mechanical Mitral Valve Prosthesis, etc.), the suggested prophylactic therapeutic range is an INR of 2.5-3.5. Blood BLOOD SPECIMEN / Unknown Venipuncture / Unknown 04/11/2024 7:20 AM SWISS TYPE SCREW MACHINE OPERATOR 04/11/2024 7:23 AM SWISS TYPE SCREW MACHINE OPERATOR Cindy Garcia MD LAB - COAGULATION OR DERABLES Performing Organization Address City/[facility]/ZIP Co de Phone Number [facility] [address] [place] [address], [facility] [phone] * URIC ACID BLOOD (04/01/2024 3:12 PM SWISS TYPE SCREW MACHINE OPERATOR) Only the most recent of13 resultswithin the time period is included. Uric Acid 4.0 3.5 - 7.2 mg/dL 04/01/2024 5:52 PM SWISS TYPE SCREW MACHINE OPERATOR [facility] Blood BLOOD SPECIMEN / Unknown Lab Venipuncture / Unknown 04/01/2024 3:12 PM SWISS TYPE SCREW MACHINE OPERATOR 04/01/2024 5:30 PM SWISS TYPE SCREW MACHINE OPERATOR Cindy Garcia MD LAB - CHEMISTRY ORDE RABLES Performing Organization Address [facility]/ZIP Co de Phone Number [facility] [address] [place] [address], [facility] [phone] * ERYTHROPOIETIN (04/01/2024 3:12 PM SWISS TYPE SCREW MACHINE OPERATOR) Pathologist [facility] Erythropoietin 22 4 - 27 mU/mL 04/02/2024 11:36 AM SWISS TYPE SCREW MACHINE OPERATOR [facility] ([facility]) Comment: INTERPRETIVE INFORMATION: Erythropoietin Normal serum concentrations [...] may benefit from therapy with recombinant EPO ([facility] [phone],1990). Performed By: [id number] [address] [place] [id number] Process Operator: Uche Morley MD, PhD CLIA Number: [id number] Blood BLOOD SPECIMEN / Unknown Lab Venipuncture / Unknown 04/01/2024 3:12 PM SWISS TYPE SCREW MACHINE OPERATOR 04/01/2024 3:22 PM SWISS TYPE SCREW MACHINE OPERATOR Cindy Garcia MD LAB - CHEMISTRY CHELI MONREAL [employer] ([facility]) [address] [place] [address], [facility] * SOLUBLE TRANSFERRIN RECEPTOR (04/01/2024 3:12 PM SWISS TYPE SCREW MACHINE OPERATOR) [facility] Soluble Transferrin Receptor 3.3 2.2 - 5.0 mg/L 04/02/2024 9:13 PM SWISS TYPE SCREW MACHINE OPERATOR [facility] [employer] ([facility]) Comment: INTERPRETIVE INFORMATION: Soluble Transferrin Receptor People [...] ??High ? Normal ? High Performed By: [facility] [address] [place] [address] Process Operator: Uche Morley MD, PhD CLIA Number: [id number] Blood BLOOD SPECIMEN / Unknown Lab Venipuncture / Unknown 04/01/2024 3:12 PM SWISS TYPE SCREW MACHINE OPERATOR 04/01/2024 3:22 PM SWISS TYPE SCREW MACHINE OPERATOR Cindy Garcia MD LAB - CHEMISTRY CHELI MONREAL [facility] ([facility]) [address] [place] [address], [facility] * (ABNORMAL) DIFFERENTIAL MANUAL (04/01/2024 3:12 PM SWISS TYPE SCREW MACHINE OPERATOR) Only the most recent of11 resultswithin the time period is included. Neutrophil % 31(L) 41 - 74 % 04/01/2024 5:13 PM [facility] Lymphocyte % 60(H) 17 - 47 % 04/01/2024 5:13 PM [facility] Monocyte % 9 3 - 11 % 04/01/2024 5:13 PM [facility] Neutrophil Absolute 0.25(L) 1.60 - 7.50 x10E9/L 04/01/2024 5:13 PM [facility] Lymphocyte Absolute 0.48(L) 1.00 - 4.40 x10E9/L 04/01/2024 5:13 PM [facility] Monocyte Absolute 0.07(L) 0.15 - 1.00 x10E9/L 04/01/2024 5:13 PM [facility] RBC Morphology REVIEWED 04/01/2024 5:13 PM [facility] Ethel Cells MANY(A) (none) 04/01/2024 5:13 PM [facility] Schistocytes FEW(A) (none) 04/01/2024 5:13 PM [facility] Blood BLOOD SPECIMEN / Unknown Lab Venipuncture / Unknown 04/01/2024 3:12 PM SWISS TYPE SCREW MACHINE OPERATOR 04/01/2024 3:36 PM SWISS TYPE SCREW MACHINE OPERATOR Cindy Garcia MD LAB - HEMATOLOGY ELI PENNY [address] [address], [facility] [phone] * PHOSPHORUS BLOOD (04/01/2024 3:12 PM SWISS TYPE SCREW MACHINE OPERATOR) Only the most recent of13 resultswithin the time period is included. Phosphorus 2.9 2.8 - 5.1 mg/dL 04/01/2024 5:52 PM SWISS TYPE SCREW MACHINE OPERATOR [facility] Blood BLOOD SPECIMEN / Unknown Lab Venipuncture / Unknown 04/01/2024 3:12 PM SWISS TYPE SCREW MACHINE OPERATOR 04/01/2024 5:30 PM SWISS TYPE SCREW MACHINE OPERATOR Cindy Garcia MD LAB - CHEMISTRY CHELI MONREAL Performing Organization Address [facility] Co de Phone Number [address] [address], [facility] [phone] * MAGNESIUM BLOOD (04/01/2024 3:12 PM SWISS TYPE SCREW MACHINE OPERATOR) Only the most recent of13 resultswithin the time period is included. Magnesium 2.1 1.6 - 2.6 mg/dL 04/01/2024 4:25 PM SWISS TYPE SCREW MACHINE OPERATOR [facility] Comment:Hemolysis detected i n this specimen. Hemolysis is known to cause elevations in this analyte. Caution should be exercised in the interpretation of this result. Recommend repeat testing if clinically indicated. Blood BLOOD SPECIMEN / Unknown Lab Venipuncture / Unknown 04/01/2024 3:12 PM SWISS TYPE SCREW MACHINE OPERATOR 04/01/2024 3:36 PM SWISS TYPE SCREW MACHINE OPERATOR Cindy Garcia MD LAB - CHEMISTRY CHELI MONREAL Performing Organization Address City/[facility]/ZIP Co de Phone Number [address] [address], [place] [phone] * LAB RESULTS ORDER (03/25/2024) 03/25/2024 Narrative 03/25/2024 Ordered by an unspecified provider. Scanned Document LAB - THERAPEUTIC DR UG MONITORING ORDERABLES * PTT [facility] (03/23/2024 12:25 AM SWISS TYPE SCREW MACHINE OPERATOR) Only the most recent of10 resultswithin the time period is included. [facility] APTT 35.4 23.0 - 38.4 Seconds 03/23/2024 1:31 AM [facility] Comment:Suggested therapeuti c range for full dose I.V. unfractionated heparin therapy for venous 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 is 71 to 109 seconds. Blood BLOOD SPECIMEN / Unknown Venipuncture / Unknown 03/23/2024 12:25 AM SWISS TYPE SCREW MACHINE OPERATOR 03/23/2024 1:05 AM SWISS TYPE SCREW MACHINE OPERATOR Ghanshyam Dewey PA-C LAB - COAGULATION OR DERABLES Performing Organization Address [facility]/ZIP Co de Phone Number [address] [address], [facility] [phone] * LDH BLOOD (03/23/2024 12:25 AM SWISS TYPE SCREW MACHINE OPERATOR) Only the most recent of12 resultswithin the time period is included. [facility] LDH Total 173 125 - 243 Units/L 03/23/2024 1:36 AM [facility] Blood BLOOD SPECIMEN / Unknown Venipuncture / Unknown 03/23/2024 12:25 AM SWISS TYPE SCREW MACHINE OPERATOR 03/23/2024 1:07 AM SWISS TYPE SCREW MACHINE OPERATOR Josh Momin MD LAB - CHEMISTRY ORD ERABLES [address] [address], [facility] [phone] * EKG 12-LEAD (03/18/2024 1:48 PM SWISS TYPE SCREW MACHINE OPERATOR) Only the most recent of2 resultswithin the time period is included. [facility] Ventricular Rate 75 BPM [facility] MUSE Atrial Rate 75 BPM [facility] MUSE P-R Interval 122 ms [facility] MUSE QRS Duration ms 118 ms [facility] MUSE Q-T Interval ms 410 ms [facility] MUSE QTC Calculation (Bezet) 457 ms [facility] MUSE Calculated P [place] 42 degrees [facility] MUSE Calculated R [place] 36 degrees [facility] MUSE Calculated T [place] -134 degrees SL MUSE Interpretation EKG NORMAL SINUS RHYTHM WITH SINUS ARRHYTHMIA INCOMPLETE RIGHT BUNDLE BRANCH BLOCK ST & MARKED T WAVE ABNORMALITY, CONSIDER ANTEROLATERAL ISCHEMIA ABNORMAL ECG NO PREVIOUS ECGS AVAILABLE Confirmed by ROVERTO BELTRE MD ([id number]) on 03/22/2024 12:50:34 PM [facility] 03/18/2024 1:48 PM SWISS TYPE SCREW MACHINE OPERATOR 03/22/2024 12:50 PM SWISS TYPE SCREW MACHINE OPERATOR Caity Ortiz CALENDER FEEDER-EVENT DECORATOR AND DESIGNER ECG ORDERABL ES [facility] * PATHOLOGY PERIPHERAL SMEAR REVIEW (03/18/2024 8:33 AM SWISS TYPE SCREW MACHINE OPERATOR) Path Review Confirmed 03/18/2024 2:44 PM SWISS TYPE SCREW MACHINE OPERATOR [facility] Blood BLOOD SPECIMEN / Unknown Lab Venipuncture / Unknown 03/18/2024 8:33 AM SWISS TYPE SCREW MACHINE OPERATOR 03/18/2024 8:46 AM SWISS TYPE SCREW MACHINE OPERATOR Narrative [facility] - 03/18/2024 2:44 PM SWISS TYPE SCREW MACHINE OPERATOR A rare blast seen. Ghanshyam Dewey PA-C LAB - PATHOLOGY/CYTO LOGY ORDERABLES [facility] [address] [place] [address], [facility] [phone] * ECHO COMPLETE W CONTRAST (03/15/2024 1:47 PM SWISS TYPE SCREW MACHINE OPERATOR) IVSd 2D 1.314 cm SSM CV FUJ [...] pk lawanda 132.418 cm/s SSM CV F U PACS LVOT VTI 32.536 cm SSM CV [facility] I PACS RVIDd 3.985 cm SSM CV [facility] I PACS RVOT pk lawanda 69.928 cm/s SSM CV F U PACS RVOT VTI 14.149 cm SSM CV [facility] I PACS LA size 3.887 cm SSM CV [facility] I PACS LA vol BP 103.263 ml SSM CV [facility] I PACS RA area 17.733 cm? ? ? SSM CV [facility] PACS AV pk lawanda regurg 205.453 cm/s SSM CV [facility] PACS AR VTI 104.216 cm SSM CV [facility] I PACS AV mn grad 5.22 mmHg SSM CV FU PACS AV pk lawanda 141.499 cm/s SSM CV [facility] I PACS AV VTI 30.145 cm SSM CV [facility] I PACS MV A pk lawanda 84.582 cm/s SSM CV F [facility] PACS MV E pk lawanda 99.639 cm/s SSM CV F [facility] PACS MV E' lateral lawanda 5.461 cm/s SSM CV [facility] PACS MV mn grad 1.183 mmHg SSM CV FU PACS MV VTI 30.572 cm SSM CV [facility] I PACS PV pk lawanda 84.446 cm/s SSM CV [facility] I PACS PV VTI 18.271 cm SSM CV [facility] I PACS TAPSE 1.78 cm SSM CV [facility] I PACS TR pk lawanda 276.773 cm/s SSM CV [facility] I PACS Ascending aorta 3.799 cm SSM CV [facility] PACS LA vol index 0.046 l/m? ? ? SSM CV [facility] PACS Myocardial strain charge 2 unitless SSM CV [facility] PACS Sinus of Valsalva 3.4 cm SSM CV [facility] PACS ST junction 3.4 cm SSM CV F [facility] PACS Anatomical Region Laterality Modality Ultrasound 03/15/2024 2:04 PM SWISS TYPE SCREW MACHINE OPERATOR Narrative 03/15/2024 5:17 PM SWISS TYPE SCREW MACHINE OPERATOR Summary ??* The left ventricle is normal [...] 1945 Gender: ? Male Accession #: ? [id number] Ht: ? 72 in Wt: ? 218 lb BSA: ? 2.26 m2 HR: ? 65 bpm BP: ? 103 / ? 55 mmHg Exam Date: ? 03/15/2024 2:04 PM Patient Status: ? I/P Study Site: ? [facility] Primary Location: ? [facility] EStud Info Technical Quality: ? Adequate Exam [...] ? Ted Soler Fellow: ? Josh Knight Starch And Prosize Mixer: ? Dhruv Sorto Left Ventricle ??Left ventricular [...] 03/15/2024 05:17 PM Reviewed by Fellow Josh ??Eugene on 03/15/2024 04:56 PM Procedure Note Gavi [...] 2:04 PM Patient Status: I/P Study Site: [facility] Primary Location: [facility] EStud Info Technical Quality: Adequate Exam [...] Attending Physician: Ted Soler Fellow: Josh Knight [employer] Pro[employer] Mixer: Dhruv Sorto Left Ventricle Left ventricular systolic [...] BLOOD OR BONE MARROW (03/15/2024 9:05 AM SWISS TYPE SCREW MACHINE OPERATOR) MDS Panel by Fish See Note Normal 024 11:26 AM [facility] [employer] ([facility]) Comment: Test Performed: Myelodysplastic Syndrome (MDS) Panel by FISH (FISH MDS P) Specimen Type: Bone Marrow Indication for Testing: Myelodysplastic syndrome, unspecified RESULT Normal FISH Result Deletion 5q: ??not detected Monosomy 7: ??not detected Deletion 7q: ??not detected Trisomy 8: ??not detected Deletion 20q: ??not detected INTERPRETATION There was no evidence of deletion 5q31, monosomy 7, deletion 7q31, trisomy 8, or deletion 58u11-v56.1. This analysis was performed with the MDS panel probes D5S23/EGR1, D7Z1/X0U563, CEP8 ([employer]), and Del(20q) ([employer]). A total of 200 cells were scored for each probe. Cytogenomic Nomenclature (ISCN): nuc nereyda(D5S23,EGR1,D7Z1,Q3C861,D8Z2,[id number],MYBL2)x2[200' This result has been reviewed and approved by Nabila Gonzalez, PhD, [facility] A portion of this analysis was performed at the following location(s): [facility] Site -[facility]#2 INTERPRETIVE INFORMATION: MDS Panel by FISH This test was developed and its performance characteristics determined by [facility]. It has not been cleared or approved by the US Food and Drug Administration. This test was performed in a CLIA certified laboratory and is intended for clinical purposes. EER MDS Fish Panel See Note 2023 11:26 AM SWISS TYPE SCREW MACHINE OPERATOR [facility] ([facility]) Comment: Authorized individuals can access the [employer] Enhanced Report using the following link: [email or web address] Performed By: [id number] [address] [place] [address] Process Operator: Uche Morley MD, PhD CLIA Number: [id number] Other BONE MARROW SPECIMEN / Unknown Collection / Unknown 03/15/2024 9:05 AM SWISS TYPE SCREW MACHINE OPERATOR 03/15/2024 9:30 AM SWISS TYPE SCREW MACHINE OPERATOR Rodo Perez MD LAB - PATHOLOG Y/CYTOLOGY ORDERABLES [facility]) [address] [place] [address], [facility] * FISH AML PANEL BLOOD OR BM RFLX PML/DANTE (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 [facility] FISH AML Panel See Note Normal 03/25/2024 10:34 AM SWISS TYPE SCREW MACHINE OPERATOR [employer] ([facility]) Comment: Test Performed: Acute Myeloid Leukemia Panel by FISH (FISHAML) Specimen Type: Bone Marrow Indication for Testing: Myelodysplastic syndrome, unspecified RESULT Normal FISH Result inv(3) or t(3;3) GATA2::MECOM Fusion: ??not detected Deletion 5q: ??not detected Monosomy 7: ??not detected Deletion 7q: ??not detected t(8;21) RUNX1::[id number] Fusion: ??not detected 11p15 ([id number]) Rearrangement: ??not detected 11q23 (KMT2A) Rearrangement: ??not detected inv(16) or t(16;16) CBFB::MYH11 Fusion: ??not detected INTERPRETATION There was no evidence of GATA2::MECOM (also known as RPN1-EVI1) fusion due to 3q21/3q26.2 inversion or translocation, deletion 5q31, monosomy 7, deletion 7q31, RUNX1::GYOP2S0 fusion due to translocation (8;21)(q21.3;q22), 11p15 (NUP98) rearrangement, 11q23 KMT2A (MLL) rearrangement, or CBFB::MYH11 fusion due to either 16p13.1/16q22 inversion or translocation. This analysis was performed with the AML panel probes RPN1/MECOM, D5S23/EGR1, D7Z1/F8N335, RUNX1/NPEA3V0 ([employer]), NUP98 and CBFB-MYH11 ([employer] and MLL (KMT2A) ([employer]). A total of 200 cells were scored for each probe. Cytogenomic Nomenclature (ISCN): nuc nereyda(RPN1,MECOM,D5S23,EGR1,D7Z1,N5F798,KBXA5B6,NUP98,KMT2A,MYH11,CBF B,RUNX1)x2[200' This result has been reviewed and approved by Mundo Mejia, PhD, [facility] A portion of this analysis was performed at the following location(s): [facility] Site CG-[place]#1 INTERPRETIVE INFORMATION: AML Panel by FISH This test was developed and its performance characteristics determined by [facility]. It has not been cleared or approved by the US Food and Drug Administration. This test was performed in a CLIA certified laboratory and is intended for clinical purposes. EER AML Panel by FISH See Note 03/25/2024 10:34 AM SWISS TYPE SCREW MACHINE OPERATOR [facility] ([facility]) Comment: Authorized individuals can access the [employer] Enhanced Report using the following link: [email or web address] Performed By: [facility] [address] [place] [address] Process Operator: Uche Morley MD, PhD CLIA Number: [id number] Other BONE MARROW SPECIMEN / Unknown Collection / Unknown 03/15/2024 9:05 AM SWISS TYPE SCREW MACHINE OPERATOR 03/15/2024 9:30 AM SWISS TYPE SCREW MACHINE OPERATOR Rodo Perez MD LAB - PATHOLOG Y/CYTOLOGY ORDERABLES [facility] ([facility]) [address] [place] [address], [facility] * FLOW CYTOMETRY BONE MARROW (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 Case Report Flow Cytometry ?Case: [id number] ? Authorizing Provider: ??Rodo Perez, ?? Collected: ? 03/15/2024 09:05 AM ? MD ? Ordering Location: ? [facility] 7N ACUTE ? Received: ?03/15/2024 09:30 AM ? Pathologist: ? Angeles Rosado MD ? Specimen: ?Bone Marrow ? 03/15/2024 2:40 PM [facility] Final Diagnosis Bone marrow, flow cytometric immunophenotypic analysis: - Paucicellular specimen with increased myeloblasts detected (42.4% of events) - See interpretation 03/15/2024 2:40 PM [facility] Flow Cytometry Interpretation Viability: [...] cytometry specimen has been reviewed for quality cloth tester purposes. Correlation with the concurrent bone marrow biopsy ([id number]) is required. 03/15/2024 2:40 PM [facility] Flow Cytometry Results Differential Result Comment Flow Cell Count /uL 980 Total Viability % 92.0 Lymphocytes % 13 Dim CD45 Region % 55 Monocytes % 2 Granulocytes % 28 03/15/2024 2:40 PM [facility] Reason for test MDS (myelodysplastic syndrome) (HCC) 238.75 03/15/2024 2:40 PM [facility] Client Specimen ID # [id number] 03/15/2024 2:40 PM [facility] Number of markers 24 were performed. A-2 Flow CD10 A-3 Flow CD13 A-5 Flow CD20 A-11 Flow CD2 A-13 Flow CD14 A-16 Flow CD117 A-17 Flow CD11b A-18 Flow CD11c A-1 Flow CD5 A-4 Flow CD19 A-6 Flow CD33 A-7 Flow CD34 A-8 Flow CD45 A-12 Flow CD7 A-14 Flow CD56 A-15 Flow CD64 A-23 cyCD22 A-24 ltZY96q A-9 [employer]+CD19+ A-10 Lambda+CD19+ A-19 Flow HLA-DR A-20 Flow MPO A-21 Flow TdT A-22 cyCD3 03/15/2024 2:40 PM [facility] Pathologist Location at [facility] 03/15/2024 2:40 PM [facility] Disclaimer Test performed at [facility], [address] [place] [address], [id number]. *The established laboratory minimum viability is 70%. [...] high complexity clinical testing. 03/15/2024 2:40 PM [facility] Embedded Images 2:40 PM [facility] Pathology/Cytolo gy BONE MARROW SPECIMEN / Unknown Collection / Unknown 03/15/2024 9:05 AM SWISS TYPE SCREW MACHINE OPERATOR 03/15/2024 9:30 AM SWISS TYPE SCREW MACHINE OPERATOR Rodo Perez MD LAB - PATHOLOG Y/CYTOLOGY ORDERABLES Performing Organization Address City/State/[facility] Co de Phone Number [facility] [address] [place] [address]. [place] [address], [facility] [phone] * BONE MARROW BIOPSY (STL) (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 Case Report Bone Marrow Patholog y Report ?Case: [id number] ? Authorizing Provider: ??Rodo Perez, ?? Collected: ? 03/15/2024 09:05 AM ? MD ? Ordering Location: ? [facility] 7N ACUTE ? Received: ?03/15/2024 09:30 AM ? Pathologist: ? Stephanie, Guillremo H, MD ? Specimens: ?? A) - Bone Marrow Clot ? B) - Bone Marrow Core ? C) - Bone Marrow Aspirate ? D) - Blood Peripheral ? 03/18/2024 4:01 PM [facility] Final Diagnosis Bone marrow, aspirate, clot section, and core biopsy: - Acute myeloid leukemia. - See description. Peripheral blood smear: - Pancytopenia. - See description. 03/18/2024 4:01 PM [facility] Comment Immunohistochemistry performed show [...] for a definitive subclassification. 03/18/2024 4:01 PM [facility] Peripheral Smear Description RBC: normocytic anemia. WBC: leukopenia with absolute neutropenia and lymphopenia. No circulating blasts seen. Platelets: decreased in number. 03/18/2024 4:01 PM [facility] Bone Marrow Aspirate Differential [...] stain): no ring sideroblasts. 03/18/2024 4:01 PM [facility] Bone Marrow Core Biopsy [...] morphology: peripheral blood only. 03/18/2024 4:01 PM [facility] Flow Cytometry Summary Bone marrow, flow cytometric immunophenotypic analysis ([id number]): - Paucicellular specimen with increased myeloblasts detected (42.4% of events) 03/18/2024 4:01 PM [facility] Clinical History New AML. 03/18/2024 4:01 PM [facility] Gross Description The requisition [...] in cassette B1. DF 03/18/2024 4:01 PM [facility] Pathologist Location at [facility] 03/18/2024 4:01 PM [facility] Disclaimer The performance characteristics of all immunohistochemical and indirect immunofluorescence stains (if any) cited in this report were determined by the [facility]opathology [facility] of [facility]. Some of these tests were developed [...] the attending (teaching) pathologist. 03/18/2024 4:01 PM [facility] Embedded Images 03/18/2024 4:01 PM [facility] Pathology/Cytology PERIPHERAL BLOOD / Unknown Collection / Unknown 03/15/2024 9:05 AM SWISS TYPE SCREW MACHINE OPERATOR 03/15/2024 9:30 AM SWISS TYPE SCREW MACHINE OPERATOR Miscellaneous samples (specimen) BONE MARROW SPECIMEN / Unknown 03/15/2024 9:05 AM SWISS TYPE SCREW MACHINE OPERATOR 03/15/2024 9:30 AM SWISS TYPE SCREW MACHINE OPERATOR Miscellaneous samples (specimen) SPECIMEN FROM BONE MARROW OBTAINED BY ASPIRATION / Unknown 03/15/2024 9:05 AM SWISS TYPE SCREW MACHINE OPERATOR 03/15/2024 9:30 AM SWISS TYPE SCREW MACHINE OPERATOR Miscellaneous samples (specimen) PERIPHERAL BLOOD / Unknown 03/15/2024 9:05 AM SWISS TYPE SCREW MACHINE OPERATOR 03/15/2024 11:39 AM SWISS TYPE SCREW MACHINE OPERATOR Rodo Perez MD LAB - PATHOLOG Y/CYTOLOGY ORDERABLES Performing Organization Address City/State/[facility] Co de Phone Number [facility] [address] [phone] * MYELOID MALIGNANCIES MUTATION PNL (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 Interpretation Myeloid Malignancy PNL See Note 03/28/2024 2:06 PM SWISS TYPE SCREW MACHINE OPERATOR [facility] ([facility]) Comment: Myeloid Malignancies Mutation Panel NGS Submitted diagnosis or diagnosis under consideration for variant interpretation: Myelodysplastic syndrome, unspecified Note: Prior NGS testing performed on this patient (most recent [employer] accession [id number]) was reviewed in conjunction with the current case to compare molecular variants reported. The previously reported molecular variants DNMT3A, IDH1, and CUX1 are again detected in the current study. In addition, new molecular variants in STAG2, BCOR, JAK2, and CEBPA are now detected. TIER 1: Variants of Known Clinical Significance in Hematologic Malignancies 1. IDH1 c.394C>A, p.Nmz401Qzv (NM_[id number]) VAF: 38.4% IDH1 encodes an enzyme that catalyzes the conversion of isocitrate to alpha-ketoglutarate in the citric acid cycle (23). Somatic mutations of IDH1 are found in 4-12% of patients with myelodysplastic syndrome (MDS).This mutation has been reported in hematologic malignancies (4). The prognostic significance of mutated IDH1 in MDS is uncertain (20) (27) (7) (14) (19) (32). 2. DNMT3A c.2206C>T, p.Kwl298Oop (NM_[id number]) VAF: 42.2% DNMT3A encodes a DNA [...] stem cell transplantation (2). 3. DNMT3A c.2407A>G, p.Deu945Kwm (NM_[id number]) VAF: 38.8% This mutation has also been reported in hematologic malignancies (4). 4. JAK2 c.1849G>T, p.Ooh010Nfx (NM_004972.4) VAF: 14.4% JAK2 encodes a non-receptor protein tyrosine kinase that regulates STAT furnace operator factors in response to cytokine receptor signaling (13). JAK2 mutations have been reported in 3-6% of patients with MDS (6) (15) (31). This JAK2 mutation (p.Sfz407Tjw) has also been reported in approximately 10-25% of patients with myelodysplastic/myeloproliferative neoplasms (MDS/MPN) (31) (21). This particular JAK2 mutation occurs in the pseudokinase (JH2) domain and leads to activation of the NOLAN-STAT pathway signaling. The prognostic significance of JAK2 mutations in MDS is unclear (6). 5. STAG2 c.1840C>T, p.Bei188* (NM_[id number]) VAF: 31.7% STAG2 encodes a subunit [...] unmutated cohesin genes (29). 6. BCOR c.3649C>T, p.Kpy2913* (NM_[id number]) VAF: 9.6% BCOR encodes a transcriptional corepressor that interacts with BCL-6 and histone deacetylases (HDACs) (5) (12). Mutations in BCOR are seen in 4% of patients with MDS (5) (11). BCOR mutations in MDS are often frameshift and nonsense mutations that result in nlgp-ss-othhtgva (5) (11). This mutation is predicted to alter the normal function of BCOR. BCOR mutations are associated with a higher incidence of AML transformation in MDS patients and shorter overall survival in MDS patients (5) (11) (16). 7. BCOR c.635_638del, p.Hzb205Bzkzp*3 (NM_[id number]) VAF: 6.2% This mutation is also predicted to alter the normal function of BCOR. TIER 2: Variants of Unknown Clinical Significance in Hematologic Malignancies 1. CEBPA c.1074_*9del, p.*359Cysext*58 (NM_[id number]) VAF: 4.7% CEBPA encodes a protein that is a member of the basic region leucine zipper family of furnace operator factors (18). Somatic mutations of CEBPA are [...] if any, is uncertain. 2. CUX1 c.3085G>A, p.Mte4347Vex (NM_181552.4) VAF: 44.8% This variant has been rarely reported in hematologic malignancies (1) (10), to the best of our knowledge. References 1: Lynnette P, ??Emmanuelle B, ??Zhanna CLARK et al, Assessment of Minimal Residual Disease by Next Generation Sequencing in Peripheral Blood as a Complementary Tool for Personalized Transplant Monitoring in Myeloid Neoplasms. J Clin Med 2020. PMID:28606521 2: Virginie Guo, ??Juan HERNANDEZ, ??Ulises Kim et al, Somatic mutations predict poor outcome in patients with myelodysplastic syndrome after hematopoietic stem-cell transplantation. J Clin Oncol 2014. PMID:99611037 3: cBioPortal: http://www.cbioportal.org/ 4: COSMIC: https://cancer.vipin.ac.uk/cosmic 5: Braulio F, ??Yu V, ??Camilla Y et al, BCOR and BCORL1 mutations in myelodysplastic syndromes and related disorders. Blood 2013. PMID:40880706 6: Bill M, ??Jennifer C, ??Víctor Stroud et al, JAK2 Mutations Are Rare and Diverse in Myelodysplastic Syndromes: Case Series and Review of the Literature. Hematol Rep 2022. PMID:26911559 7: Jahaira GRAY, ??Kamla Estrada, ??Mary Mason et al, IDH1 and IDH2 mutations in myelodysplastic syndromes and role in disease progression. Leukemia 2016. PMID:92294501 8: Fried I, ??Day C, ??Lenin MURPHY et al, Frequency, onset and clinical impact of somatic DNMT3A mutations in therapy-related and secondary acute myeloid leukemia. Haematologica 2012. PMID:43086035 9: Fuclucinda O, ??Idania D, ??Luanne Payne et al, CEBPA polymorphisms and mutations in patients with acute myeloid leukemia, myelodysplastic syndrome, multiple myeloma and non-Hodgkin's lymphoma. Blood Cells Mol Dis 2008. PMID:22151419 10: Cassandra Kim, ??Cornell M, ??Alexis Valdivia et al, DNA methylation epitypes highlight underlying developmental and disease pathways in acute myeloid leukemia. Genome Res 2020. PMID:41041373 11: Ivan V, ??Jenna E, ??Alondra DEMPSEY et al, Whole-exome sequencing identifies somatic mutations of BCOR in acute myeloid leukemia with normal karyotype. Blood 2011. PMID:29326046 12: Lin RUEDA, ??Yashira W, ??Darcie Paz al, BCoR, a novel corepressor involved in BCL-6 repression. Genes Dev 2000. PMID:98676103 13: Fabian SS, ??Jen SJ, ??Amandeep LR et al, Nolan/STAT pathways in cytokine signaling and myeloproliferative disorders: approaches for targeted therapies. Genes Cancer 2010. PMID:59392710 14: Jose J O, ??Charity V, ??Grayson Stroud et al, Mutations of IDH1 and IDH2 genes in early and accelerated phases of myelodysplastic syndromes and MDS/myeloproliferative neoplasms. Leukemia 2010. PMID:55755635 15: Bharathorfer M, ??Catherine C, ??Ahsan Talavera et al, Molecular analysis of myelodysplastic syndrome with isolated deletion of the long arm of chromosome 5 reveals a specific spectrum of molecular mutations with prognostic impact: a study on 123 patients and 27 genes. Haematologica 2017. PMID:26995655 16: Gregoria KH, ??Meliton T, ??Valerie Payne et al, Spectrum and prognostic relevance of explosives truck driver gene mutations in acute myeloid leukemia. Blood 2016. PMID:05627905 17: Nicol Tong, ??Mel MEANS, ??Milton Doss et al, Dominant-negative mutations of CEBPA, encoding CCAAT/enhancer binding protein-alpha (C/EBPalpha), in acute myeloid leukemia. Yusra Emely 2001. PMID:23940960 18: Mel Hughes, Complexity of CEBPA dysregulation in human acute myeloid leukemia. Clin Cancer Res 2009. PMID:81748115 19: Papbeaul E, ??Candidostung M, ??Hugh Stroud et al, Clinical and biological implications of explosives truck driver mutations in myelodysplastic syndromes. Blood 2013. PMID:60492031 20: Eielen MURPHY, ??Rajinder CHRISTY, ??Juju OTERO et al, Differential prognostic effect of IDH1 versus IDH2 mutations in myelodysplastic syndromes: a [facility] study of 277 patients. Leukemia 2012. PMID:05087173 21: Eileen MURPHY, George TL, Genomics of myelodysplastic syndrome/myeloproliferative neoplasm overlap syndromes. Hematology Am Soc Hematol Educ Program 2020. PMID:11080049 22: Preudhomme C, ??Malika C, ??Heather Flower et al, Favorable prognostic significance of CEBPA mutations in patients with de elinor acute myeloid leukemia: a study from the Acute Leukemia [place] Association (JOSE). Blood 2002. PMID:85816585 23: Bulmaro BENTON, Josse H, Isocitrate dehydrogenase 1 and 2 mutations in cancer: alterations at a crossroads of cellular metabolism. J Natl Cancer Inst 2010. PMID:41657396 24: Jose A, ??Ivan V, ??Yudi U et al, [place] analysis of DNMT3A mutations in hematological malignancies. Leukemia 2013. PMID:21783063 25: Kim , ??Miriam O, ??Arnulfo REINOSO et al, The role of mutations in epigenetic regulators in myeloid malignancies. Yusra Rev Cancer 2012. PMID:76092084 26: Taube F, ??Hubert ISSA, ??Efrem Payne et al, CEBPA mutations in 4708 patients with acute myeloid leukemia: differential impact of bZIP and TAD mutations on outcome. Blood 2021. PMID:65304148 27: Thol F, ??Roverto EM, ??Sam Lynn et al, IDH1 mutations in patients with myelodysplastic syndromes are associated with an unfavorable prognosis. Haematologica 2010. PMID:72352705 28: Thol F, ??Lisa Rubin, ??Bro Valdivia et al, Rare occurrence of DNMT3A mutations in myelodysplastic syndromes. Haematologica 2011. PMID:34923147 29: Josey S, ??Liam AD, ??Joan H et al, Genetic alterations of the cohesin complex genes in myeloid malignancies. Blood 2014. PMID:48244459 30: Barrett MERRITT, ??Tono L, ??Jossue Amador et al, Recurrent DNMT3A mutations in patients with myelodysplastic syndromes. Leukemia 2011. PMID:84780421 31: Wan Z, Adamson B, Comparison and Implications of Mutational Profiles of Myelodysplastic Syndromes, Myeloproliferative Neoplasms, and Myelodysplastic/Myeloproliferative Neoplasms: A [place]-Analysis. Front Oncol 2020. PMID:27731944 32: Sarabia N, ??Sarabia F, ??Yuval N et al, IDH1 Mutation Is an Independent Inferior Prognostic Indicator for Patients with Myelodysplastic Syndromes. Acta Haematol 2017. PMID:05937136 33: Ochoa L, Gabriella R, Hieu ALBERTS, DNMT3A in haematological malignancies. Yusra Rev Cancer 2015. PMID:32682521 This result has been reviewed and approved by Jannette Dutta M.D. Low coverage regions: Listed below are regions where the average sequencing depth (number of times a particular nucleotide is sequenced) in at least 20% of the goyjcw-dp-xycqchwm is less than our stringent cutoff of [...] NOTCH1; NPM1*; NRAS; NSD1; PHF6; PIGA; PPM1D; BZKF39R; PRPF8; PTPN11; RAD21; RUNX1; SAMD9; SAMD9L; SETBP1; [...] developed and its performance characteristics determined by [facility]. It has not been cleared or approved by the U.S. Food and Drug Administration. This test was performed in a CLIA-certified laboratory and is intended for clinical purposes. Myeloid Malignancy Dx Mds Unspec 03/28/2024 2:06 PM [facility] ([facility]) Myeloid Malignancy Panel Specimen Bone Marrow 03/28/2024 2:06 PM SWISS TYPE SCREW MACHINE OPERATOR [facility] ([facility]) EER Myeloid Malignancy See Note 03/28/2024 2:06 PM SWISS TYPE SCREW MACHINE OPERATOR [facility] ([facility]) Comment: Authorized individuals can access the [facility] Enhanced Report using the following link: [email or web address] Performed By: [facility] [address] [place] [address] Process Operator: Uche Morley MD, PhD CLIA Number: [id number] Other BONE MARROW SPECIMEN / Unknown Collection / Unknown 03/15/2024 9:05 AM SWISS TYPE SCREW MACHINE OPERATOR 03/15/2024 9:30 AM SWISS TYPE SCREW MACHINE OPERATOR Rodo Perez MD LAB - PATHOLOG Y/CYTOLOGY ORDERABLES [facility]) [address] [place] [address], [facility] * LAB MISC TEST (NOT BLOOD) (03/15/2024 9:05 AM SWISS TYPE SCREW MACHINE OPERATOR) Only the most recent of3 resultswithin the time period is included. Test Name Tp53 03/21/2024 12:[address] [facility] REF [facility] NON INTERF Test Result See Scanned Report 03/21/2024 12:06 PM SWISS TYPE SCREW MACHINE OPERATOR [facility] REF LAB NON INTERF Comment Ref Lab 03/21/2024 12:06 PM SWISS TYPE SCREW MACHINE OPERATOR [facility] REF LAB NON INTERF Other BONE MARROW SPECIMEN / Unknown Collection / Unknown 03/15/2024 9:05 AM SWISS TYPE SCREW MACHINE OPERATOR 03/15/2024 9:30 AM SWISS TYPE SCREW MACHINE OPERATOR Rodo Perez MD LAB - BODY FLU ID ORDERABLES [facility] REF LAB NON INTERF [address] [place] [address], [facility] [phone] * FISH PML/DANTE PANEL (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 EER PML/DANTE Translocation by Fish See Note 03/17/2024 4:41 PM SWISS TYPE SCREW MACHINE OPERATOR [facility] ([facility]) Comment: Authorized individuals can access the [facility] Enhanced Report using the following link: [email or web address] Performed By: [facility] [address] [place] [address] Process Operator: Uche Morley MD, PhD CLIA Number: [id number] PML/DANTE Translocation by FISH See Note 03/17/2024 4:41 PM SWISS TYPE SCREW MACHINE OPERATOR [facility] ([facility]) Comment: Test Performed: PML-DANTE Translocation by FISH [...] reviewed and approved by Nabila Gonzalez, PhD, [facility] A portion of this analysis was performed at the following location(s): [facility] Site CG-[place]#2 INTERPRETIVE INFORMATION: PML/DANTE Translocation by FISH This test was developed and its performance characteristics determined by [facility]. It has not been cleared or approved by the US Food and Drug Administration. This test was performed in a CLIA certified laboratory and is intended for clinical purposes. Other BONE MARROW SPECIMEN / Unknown Collection / Unknown 03/15/2024 9:05 AM SWISS TYPE SCREW MACHINE OPERATOR 03/15/2024 9:30 AM SWISS TYPE SCREW MACHINE OPERATOR Rodo Perez MD LAB - PATHOLOG Y/CYTOLOGY ORDERABLES [facility]) [address] [place], [place] [address] * CHROMOSOME ANALYSIS BONE MARROW PANEL (03/15/2024 9:05 AM SWISS TYPE SCREW MACHINE OPERATOR) Chromosome Analysis Bone Marrow See Note Normal 03/22/2024 11:01 AM SWISS TYPE SCREW MACHINE OPERATOR [facility] ([facility]) Comment: Test Performed: Chromosome Analysis Specimen Type: [...] study. NOTE: Concurrent FISH PML performed under [facility] accession [id number] was NORMAL. FISHAML and FISH MDS P are PENDING and will be reported under [facility] accessions [id number] and [id number]. This result has been reviewed and approved by Randall Yun, PhD, [facility] A portion of this analysis was performed at the following location(s): [facility] INTERPRETIVE INFORMATION: Chromosome Analysis, Bone Marrow This test was developed and its performance characteristics determined by [facility]. It has not been cleared or approved by the US Food and Drug Administration. This test was performed in a CLIA certified laboratory and is intended for clinical purposes. EER Chromosome Analysis Bone Marrow See Note 03/22/2024 11:01 AM SWISS TYPE SCREW MACHINE OPERATOR [facility] ([facility]) Comment: Authorized individuals can access the [facility] Enhanced Report using the following link: [email or web address] Performed By: [facility] [address] [place] [address] Process Operator: Uche Morley MD, PhD CLIA Number: [id number] Bone marrow BONE MARROW SPECIMEN / Unknown 03/15/2024 9:05 AM SWISS TYPE SCREW MACHINE OPERATOR 03/15/2024 9:30 AM SWISS TYPE SCREW MACHINE OPERATOR Rodo Perez MD LAB - PATHOLOG Y/CYTOLOGY ORDERABLES [facility] [facility] [address] * FLOW CYTOMETRY BLOOD PROFILE (03/14/2024 10:32 AM SWISS TYPE SCREW MACHINE OPERATOR) Case Report Flow Cytometry ?Case: [id number] ? Authorizing Provider: ??Dewey, Ghanshyam N, PA-C ? Collected: ? 03/14/2024 10:32 AM ? Ordering Location: ? [facility] ? Received: ?03/14/2024 01:49 PM ? Pathologist: ? Angeles Rosado MD ? Specimen: ?Blood ? 03/14/2024 4:58 PM [facility] Final Diagnosis Peripheral blood, flow cytometric immunophenotypic analysis: - 1.2% myeloblasts detected - No evidence of a monoclonal B-cell population - See interpretation 03/14/2024 4:58 PM [facility] Flow Cytometry Results Differential Result Comment WBC Count /uL 1,200 Total Viability % 100.0 Lymphocytes % 80 Dim CD45 Region % 4 Monocytes % 4 Granulocytes % 13 03/14/2024 4:58 PM [facility] Flow Cytometry Interpretation Viability: 100% B-cells: polytypic, kappa:lambda ratio 1.1:1. Blasts: 1.2% of events are myeloblasts. Monocytes are mature. A peripheral blood smear prepared from the flow cytometry specimen has been reviewed for quality cloth tester purposes. 03/14/2024 4:58 PM [facility] Reason for test MDS (myelodysplastic syndrome) (HCC) 238.75 03/14/2024 4:58 PM [facility] Client Specimen ID # [id number] 03/14/2024 4:58 PM [facility] Pathologist Location at [facility] 03/14/2024 4:58 PM [facility] Disclaimer Test performed at [facility], [address] [place] [address], [address]. *The established laboratory minimum viability is 70%. [...] high complexity clinical testing. 03/14/2024 4:58 PM [facility] Embedded Images 4:58 PM [facility] Number of markers 19 were performed. A-2 Flow CD10 A-3 Flow CD13 A-5 Flow CD20 A-11 Flow CD2 A-13 Flow CD14 A-16 Flow CD117 A-17 Flow CD11b A-18 Flow CD11c A-1 Flow CD5 A-4 Flow CD19 A-6 Flow CD33 A-7 Flow CD34 A-8 Flow CD45 A-12 Flow CD7 A-14 Flow CD56 A-15 Flow CD64 A-9 [employer]+CD19+ A-10 Lambda+CD19+ A-19 Flow HLA-DR 03/14/2024 4:58 PM SWISS TYPE SCREW MACHINE OPERATOR [facility] Blood BLOOD SPECIMEN / Unknown Lab Venipuncture / Unknown 03/14/2024 10:32 AM SWISS TYPE SCREW MACHINE OPERATOR 03/14/2024 1:49 PM SWISS TYPE SCREW MACHINE OPERATOR Ghanshyam Dewey PA-C LAB - PATHOLOGY/CYTO LOGY ORDERABLES [facility] [address] [place] [address]. [place] [id number] [place] [address] * CYTOMEGALOVIRUS (CMV) QUANTITATIVE PLASMA (03/13/2024 11:26 PM SWISS TYPE SCREW MACHINE OPERATOR) CMV Quant by PCR, Interp Not detected Not detected 03/14/2024 9:00 AM SWISS TYPE SCREW MACHINE OPERATOR [facility] Blood BLOOD SPECIMEN / Unknown Venipuncture / Unknown 03/13/2024 11:26 PM SWISS TYPE SCREW MACHINE OPERATOR 03/13/2024 11:37 PM SWISS TYPE SCREW MACHINE OPERATOR Narrative [facility] - 03/14/2024 9:00 AM SWISS TYPE SCREW MACHINE OPERATOR The Cytomegalovirus (CMV) DNA analysis utilized a [...] Soler MD LAB - CHEMISTRY OR DERABLES [facility] [address] [facility] [place] [address], [facility] [phone] * QUINN-TOVAR VIRUS QUANT BLOOD STL (03/13/2024 11:26 PM SWISS TYPE SCREW MACHINE OPERATOR) Pathologist [facility] EBV Quant by PCR, Interp Not detected Not detected 03/14/2024 8:56 AM SWISS TYPE SCREW MACHINE OPERATOR [facility] Specimen Type Plasma 03/14/2024 8:56 AM [facility] Blood BLOOD SPECIMEN / Unknown Venipuncture / Unknown 03/13/2024 11:26 PM SWISS TYPE SCREW MACHINE OPERATOR 03/13/2024 11:37 PM SWISS TYPE SCREW MACHINE OPERATOR Narrative [facility] - 03/14/2024 8:56 AM SWISS TYPE SCREW MACHINE OPERATOR The Quinn-Tovar viral (EBV) DNA analysis utilized [...] Soler MD LAB - CHEMISTRY OR DERABLES [facility] [address] [facility] [address] [place], [place] [address], [facility] [phone] * D-DIMER (03/13/2024 11:26 PM SWISS TYPE SCREW MACHINE OPERATOR) D-Dimer Quantitative <0.27 <=0.50 mcg/mL FEU 03/14/2024 12:00 AM SWISS TYPE SCREW MACHINE OPERATOR [facility] Comment: In the absence of [...] Unknown Venipuncture / Unknown 03/13/2024 11:26 PM SWISS TYPE SCREW MACHINE OPERATOR 03/13/2024 11:37 PM SWISS TYPE SCREW MACHINE OPERATOR Ted Soler MD LAB - COAGULATION ORDERABLES Performing Organization Address City/[facility]/ZIP Co de Phone Number [address] [address], [facility] [phone] * FIBRINOGEN ACTIVITY (03/13/2024 11:26 PM SWISS TYPE SCREW MACHINE OPERATOR) Pathologist [facility] Fibrinogen Clauss 362 200 - 400 mg/dL 03/13/2024 11:59 PM SWISS TYPE SCREW MACHINE OPERATOR [facility] Blood BLOOD SPECIMEN / Unknown Venipuncture / Unknown 03/13/2024 11:26 PM SWISS TYPE SCREW MACHINE OPERATOR 03/13/2024 11:37 PM SWISS TYPE SCREW MACHINE OPERATOR Ted Soler MD LAB - COAGULATION ORDERABLES Performing Organization Address City/[facility]/ZIP Co de Phone Number [address] [address], [place] [phone] * FISH AML+MDS PANEL BLOOD OR BONE MARROW (03/04/2024 4:13 PM SWISS TYPE SCREW MACHINE OPERATOR) FISH AML with MDS, Therapy-Rltd AML See Note Normal 03/19/2024 4:32 PM SWISS TYPE SCREW MACHINE OPERATOR [facility] ([facility]) Comment: Test Performed: Acute Myelogenous Leukemia (AML) [...] with the Therapy-Related AML panel probes D5S23/EGR1, D7Z1/T1Z531, and MLL (KMT2A) ([employer]). A total of 200 cells were scored for each probe. Cytogenomic Nomenclature (ISCN): nuc nereyda(D5S23,EGR1,D7Z1,C1T656,KMT2A)x2[200' This result has been reviewed and approved by Charles Pablo MD, [facility] INTERPRETIVE INFORMATION: AML with MDS, Therapy-Related AML, FISH This test was developed and its performance characteristics determined by [facility]. It has not been cleared or approved by the US Food and Drug Administration. This test was performed in a CLIA certified laboratory and is intended for clinical purposes. EER AML with MDS, Therapy-Rltd AML FISH See Note 03/19/2024 4:32 PM SWISS TYPE SCREW MACHINE OPERATOR [facility] ([facility]) Comment: Authorized individuals can access the Astech Enhanced Report using the following link: [email or web address] Performed By: [id number] [address] [place] [address] Process Operator: Uche Morley MD, PhD CLIA Number: [id number] Other BLOOD SPECIMEN / Unknown Collection / Unknown 03/04/2024 4:13 PM SWISS TYPE SCREW MACHINE OPERATOR 03/04/2024 4:23 PM SWISS TYPE SCREW MACHINE OPERATOR Cindy Garcia MD LAB - PATHOLOGY/CYTO LOGY ORDERABLES [facility] [employer] ([facility]) [address] [place] [address], [facility] * CHROMOSOME ANALYSIS LEUKEMIA BLD (03/04/2024 4:13 PM SWISS TYPE SCREW MACHINE OPERATOR) Chromosome Analysis Leukemic Blood See Note Normal 03/23/2024 12:39 PM SWISS TYPE SCREW MACHINE OPERATOR [facility] ([facility]) Comment: Test Performed: Chromosome Analysis Specimen Type: [...] FISH AML/PML and TAML MDS performed under [facility] accessions [id number] and [id number] were NORMAL. This result has been reviewed and approved by Margaret Roberson, PhD, [facility] INTERPRETIVE INFORMATION: Chromosome Analysis, ?Leukemic Blood This test was developed and its performance characteristics determined by [facility]. It has not been cleared or approved by the US Food and Drug Administration. This test was performed in a CLIA certified laboratory and is intended for clinical purposes. EER Chromosome Analysis Leukemic See Note 03/23/2024 12:39 PM SWISS TYPE SCREW MACHINE OPERATOR [facility] ([facility]) Comment: Authorized individuals can access the [facility] Enhanced Report using the following link: [email or web address] Performed By: [id number] [address] [place] [address] Process Operator: Uche Morley MD, PhD CLIA Number: [id number] Blood BLOOD SPECIMEN / Unknown Lab Venipuncture / Unknown 03/04/2024 4:13 PM SWISS TYPE SCREW MACHINE OPERATOR 03/22/2024 5:28 PM SWISS TYPE SCREW MACHINE OPERATOR Cindy Garcia MD LAB - PATHOLOGY/CYTO LOGY ORDERABLES [facility]) [address] [place] [address] * HIV-1 HIV-2 ANTIBODY + HIV P24 AG PANEL (New on 08/24) (03/04/2024 4:13 PM SWISS TYPE SCREW MACHINE OPERATOR) Pathologist [facility] HIV Antigen/Antibod y 1 & 2 Non-reacti ve Non-react carlos 03/04/2024 5:12 PM SWISS TYPE SCREW MACHINE OPERATOR [facility] Comment:No Laboratory eviden ce of HIV infection. Blood BLOOD SPECIMEN / Unknown Lab Venipuncture / Unknown 03/04/2024 4:13 PM SWISS TYPE SCREW MACHINE OPERATOR 03/04/2024 4:23 PM SWISS TYPE SCREW MACHINE OPERATOR Cindy Garcia MD LAB - CHEMISTRY ORDE RABLES [facility] [address] [place] [address], [facility] [phone] * BCR-ABL1 CML+AML PCR QUANT PNL (03/04/2024 4:13 PM SWISS TYPE SCREW MACHINE OPERATOR) Pathologist [facility] Interpretation TNP 03/13/2024 5:08 PM SWISS TYPE SCREW MACHINE OPERATOR [facility] ([facility]) Comment: Unable to obtain results. Repeated efforts to analyze this specimen have been unsuccessful. LOW CONTROL GENE COPY NUMBER INDICATED SPECIMEN DEGRADATION. Director Review Comment 5:08 PM [facility] ([facility]) Comment: Dawood Sarabia, PhD, [facility] ?Director, Molecular Oncology ?[facility] ?[place] [address] ? Background Comment 03/13/2024 5:08 PM [facility] ([facility]) Comment: This assay can detect three different [...] as indicated. Methodology Comment 03/13/2024 5:08 PM [facility] ([facility]) Comment: Total RNA is isolated from the [...] developed and its performance characteristics determined by [facility]. It has not been cleared or approved by the Food and Drug Administration. Blood BLOOD SPECIMEN / Unknown Lab Venipuncture / Unknown 03/04/2024 4:13 PM SWISS TYPE SCREW MACHINE OPERATOR 03/04/2024 4:24 PM SWISS TYPE SCREW MACHINE OPERATOR Narrative [facility] ([facility]) - 03/13/2024 5:08 PM SWISS TYPE SCREW MACHINE OPERATOR Performed at: ??01 - [facility] [address] [facility], [place], [place] ??[id number] Real Estate Loan Officer: Cinthya Roper [facility], Phone: ??[phone] Performed at: ??02 - [facility] [address], [place], [place] ??[id number] Real Estate Loan Officer: Cinthya Roper [facility], Phone: ??[phone] Cindy Garcia MD LAB - CHEMISTRY CHELI MONREAL [facility] ([facility]) [address] [place] [id number] * TSH REFLEX FREE T4 (03/04/2024 4:13 PM SWISS TYPE SCREW MACHINE OPERATOR) Pathologist [facility] TSH 0.961 0.350 - 4.940 uIU/mL 03/04/2024 5:29 PM SWISS TYPE SCREW MACHINE OPERATOR [facility] Blood BLOOD SPECIMEN / Unknown Lab Venipuncture / Unknown 03/04/2024 4:13 PM SWISS TYPE SCREW MACHINE OPERATOR 03/04/2024 4:27 PM SWISS TYPE SCREW MACHINE OPERATOR Cindy Garcia MD LAB - CHEMISTRY CHELI MONREAL [address] [address], [place] [phone] * RHEUMATOID FACTOR BLOOD QUANTITATIVE (03/04/2024 4:13 PM SWISS TYPE SCREW MACHINE OPERATOR) Pathologist [facility] Rheumatoid Factor <15 <30 IU/mL 03/04/2024 4:57 PM SWISS TYPE SCREW MACHINE OPERATOR [facility] Rheumatoid Factor Screen Negative Negative 03/04/2024 4:57 PM SWISS TYPE SCREW MACHINE OPERATOR [facility] Blood BLOOD SPECIMEN / Unknown Lab Venipuncture / Unknown 03/04/2024 4:13 PM SWISS TYPE SCREW MACHINE OPERATOR 03/04/2024 4:23 PM SWISS TYPE SCREW MACHINE OPERATOR Cindy Garcia MD LAB - CHEMISTRY CHELI MONREAL [address] [address], [place] [phone] * CYTOMEGALOVIRUS ANTIBODY IGG BLOOD (03/04/2024 4:13 PM SWISS TYPE SCREW MACHINE OPERATOR) Cytomegalovirus Antibody IgG <0.20 <=0.70 U/mL 03/05/2024 9:27 PM SWISS TYPE SCREW MACHINE OPERATOR [facility] ([facility]) Comment: INTERPRETIVE INFORMATION: Cytomegalovirus Antibody, IgG ??0.59 [...] laboratory at the same time. Performed By: [id number] [address] [place] [address] Process Operator: Uche Morley MD, PhD CLIA Number: [id number] Blood BLOOD SPECIMEN / Unknown Lab Venipuncture / Unknown 03/04/2024 4:13 PM SWISS TYPE SCREW MACHINE OPERATOR 03/04/2024 4:23 PM SWISS TYPE SCREW MACHINE OPERATOR Cindy Garcia MD LAB - CHEMISTRY CHELI MONREAL [facility]) [address] [place] [address], [facility] * C-REACTIVE PROTEIN (03/04/2024 4:13 PM SWISS TYPE SCREW MACHINE OPERATOR) Pathologist [facility] C-Reactive Protein 0.5 <=0.5 mg/dL 03/04/2024 4:56 PM SWISS TYPE SCREW MACHINE OPERATOR [facility] Blood BLOOD SPECIMEN / Unknown Lab Venipuncture / Unknown 03/04/2024 4:13 PM SWISS TYPE SCREW MACHINE OPERATOR 03/04/2024 4:27 PM SWISS TYPE SCREW MACHINE OPERATOR Cindy Garcia MD LAB - CHEMISTRY CHELI MONREAL [facility] [address] [place] [address], [facility] [phone] * MARLINE BLOOD SCREEN W/REFLEX TITER (03/04/2024 4:13 PM SWISS TYPE SCREW MACHINE OPERATOR) MARLINE IgG None Detected None Detected 03/05/2024 11:42 PM SWISS TYPE SCREW MACHINE OPERATOR [facility] ([facility]) Comment: If suspicion of connective tissue disease is strong and MARLINE EIA is negative, consider testing for MARLINE by IFA ([id number]). INTERPRETIVE INFORMATION: Anti-Nuclear Antibodies (MARLINE), IgG by TOÑA Antinuclear Antibodies (MARLINE), IgG by TOÑA: MARLINE specimens are screened using enzyme-linked immunosorbent assay (TOÑA) methodology. All TOÑA results reported as Detected are further tested by indirect fluorescent assay (IFA) using HEp-2 substrate with an IgG-specific conjugate. The MARLINE TOÑA screen is designed to detect antibodies against dsDNA, histones, SS-A (Ro), SS-B (La), Pimentel, Pimentel/ENGINEERING ANALYST, Scl-70, Mey-1, centromeric proteins, other antigens extracted from the HEp-2 cell nucleus. MARLINE TOÑA assays have been reported to have lower sensitivities than MARLINE IFA for systemic autoimmune rheumatic diseases (SARD). Negative results do not necessarily rule out SARD. Performed By: [id number] [address] [place] [address] Process Operator: Uche Morley MD, PhD CLIA Number: [id number] Blood BLOOD SPECIMEN / Unknown Lab Venipuncture / Unknown 03/04/2024 4:13 PM SWISS TYPE SCREW MACHINE OPERATOR 03/04/2024 4:23 PM SWISS TYPE SCREW MACHINE OPERATOR Cindy Garcia MD LAB - CHEMISTRY CHELI MONREAL [facility]) [address] * ZINC BLOOD (03/04/2024 4:13 PM SWISS TYPE SCREW MACHINE OPERATOR) Zinc 62.4 60.0 - 120.0 ug/dL 03/06/2024 6:35 AM SWISS TYPE SCREW MACHINE OPERATOR [facility] ([facility]) Comment: INTERPRETIVE INFORMATION: Zinc, Serum or Plasma [...] developed and its performance characteristics determined by [employer]. It has not been cleared or approved by the US Food and Drug Administration. This test was performed in a CLIA certified laboratory and is intended for clinical purposes. Performed By: [place] [address] Process Operator: Uche Morley MD, PhD CLIA Number: [id number] Blood BLOOD SPECIMEN / Unknown Lab Venipuncture / Unknown 03/04/2024 4:13 PM SWISS TYPE SCREW MACHINE OPERATOR 03/04/2024 4:23 PM SWISS TYPE SCREW MACHINE OPERATOR Cindy Garcia MD LAB - CHEMISTRY CHELI MONREAL [facility] Organization Address City/State/ZIP Co de Phone Number [facility]) [address] [place] [address], [facility] * COPPER BLOOD (03/04/2024 4:13 PM SWISS TYPE SCREW MACHINE OPERATOR) Copper 108.5 70.0 - 140.0 ug/dL 03/06/2024 6:35 AM SWISS TYPE SCREW MACHINE OPERATOR [facility] ([facility]) Comment: INTERPRETIVE INFORMATION: Copper, Serum or Plasma [...] developed and its performance characteristics determined by [employer]. It has not been cleared or approved by the US Food and Drug Administration. This test was performed in a CLIA certified laboratory and is intended for clinical purposes. Performed By: [address] [address] Process Operator: Uche Morley MD, PhD CLIA Number: [id number] Blood BLOOD SPECIMEN / Unknown Lab Venipuncture / Unknown 03/04/2024 4:13 PM SWISS TYPE SCREW MACHINE OPERATOR 03/04/2024 4:23 PM SWISS TYPE SCREW MACHINE OPERATOR Cindy Garcia MD LAB - CHEMISTRY ORDE RABNIC [facility] ([facility]) [address] [place] [address] * ERYTHROCYTE SEDIMENTATION RATE (03/04/2024 4:13 PM SWISS TYPE SCREW MACHINE OPERATOR) Erythrocyte Sedimentation Rate Westergren 14 0 - 20 MM/HR 03/04/2024 5:10 PM SWISS TYPE SCREW MACHINE OPERATOR [facility] Blood BLOOD SPECIMEN / Unknown Lab Venipuncture / Unknown 03/04/2024 4:13 PM SWISS TYPE SCREW MACHINE OPERATOR 03/04/2024 4:27 PM SWISS TYPE SCREW MACHINE OPERATOR Cindy Garcia MD LAB - HEMATOLOGY ORD ERABLES [address] [address], [facility] [phone] * HEPATITIS B SURFACE ANTIBODY (03/04/2024 4:13 PM SWISS TYPE SCREW MACHINE OPERATOR) Hepatitis B Virus Surface Antibody Non-react carlos Non-react carlos 03/04/2024 5:12 PM SWISS TYPE SCREW MACHINE OPERATOR [facility] Comment: < 8 mIU/mL Hepatitis B surface Antibody (HBsAb). Nonreactive for HBsAb - individual is considered not immune to Hepatitis B Virus infection. Hepatitis B Surface Antibody Quantitative 0.3 <8.0 mIU/mL 03/04/2024 5:12 PM SWISS TYPE SCREW MACHINE OPERATOR [facility] Comment: Hepatitis B Surface Antibody Numeric Result Interpretation: ? Nonreactive: ?<8.0 mIU/mL ? Indeterminate: ??8.0 - 12.0 mIU/mL ? Reactive: ?>12.0 mIU/mL ? Blood BLOOD SPECIMEN / Unknown Lab Venipuncture / Unknown 03/04/2024 4:13 PM SWISS TYPE SCREW MACHINE OPERATOR 03/04/2024 4:23 PM SWISS TYPE SCREW MACHINE OPERATOR Cindy Garcia MD LAB - CHEMISTRY CHELI MONREAL Performing Organization Address [facility]/ZIP Co de Phone Number [facility] [address] [place] [address], [place] [phone] * HEPATITIS B CORE ANTIBODY TOTAL (03/04/2024 4:13 PM SWISS TYPE SCREW MACHINE OPERATOR) HBc Antibody Total Non-reacti ve Non-reacti ve 03/04/2024 5:12 PM SWISS TYPE SCREW MACHINE OPERATOR [facility] Blood BLOOD SPECIMEN / Unknown Lab Venipuncture / Unknown 03/04/2024 4:13 PM SWISS TYPE SCREW MACHINE OPERATOR 03/04/2024 4:23 PM SWISS TYPE SCREW MACHINE OPERATOR Cindy Garcia MD LAB - CHEMISTRY CHELI MONREAL Performing Organization Address [facility]/ZIP Co de Phone Number [facility] [address] [place] [address], [place] [phone] * FOLATE (03/04/2024 4:13 PM SWISS TYPE SCREW MACHINE OPERATOR) Folate 17.7 7.0 - 31.4 ng/mL 03/04/2024 5:29 PM SWISS TYPE SCREW MACHINE OPERATOR [facility] Blood BLOOD SPECIMEN / Unknown Lab Venipuncture / Unknown 03/04/2024 4:13 PM SWISS TYPE SCREW MACHINE OPERATOR 03/04/2024 4:27 PM SWISS TYPE SCREW MACHINE OPERATOR Cindy Garcia MD LAB - CHEMISTRY CHELI MONREAL [facility] [address] [place] [address], [place] [phone] * VITAMIN B12 (03/04/2024 4:13 PM SWISS TYPE SCREW MACHINE OPERATOR) [facility] Vitamin B12 524 213 - 816 pg/mL 03/04/2024 5:29 PM SWISS TYPE SCREW MACHINE OPERATOR [facility] Blood BLOOD SPECIMEN / Unknown Lab Venipuncture / Unknown 03/04/2024 4:13 PM SWISS TYPE SCREW MACHINE OPERATOR 03/04/2024 4:27 PM SWISS TYPE SCREW MACHINE OPERATOR Cindy Garcia MD LAB - CHEMISTRY CHELI MONREAL Performing Organization Address City/[facility]/ZIP Co de Phone Number [facility] [address] [place] [address], [place] [phone] * (ABNORMAL) IRON + TRANSFERRIN PANEL [w/Transferrin Sat % + TIBC] (03/04/2024 4:13 PM SWISS TYPE SCREW MACHINE OPERATOR) [facility] Iron 31(L) 50 - 175 ug/dL 03/04/2024 4:53 PM SWISS TYPE SCREW MACHINE OPERATOR [facility] Transferrin 257 174 - 382 mg/dL 03/04/2024 4:53 PM SWISS TYPE SCREW MACHINE OPERATOR [facility] Transferrin Saturation % 10(L) 16 - 50 % 03/04/2024 4:53 PM SWISS TYPE SCREW MACHINE OPERATOR [facility] TIBC Calculated 321 240 - 450 ug/dL 03/04/2024 4:53 PM SWISS TYPE SCREW MACHINE OPERATOR [facility] Blood BLOOD SPECIMEN / Unknown Lab Venipuncture / Unknown 03/04/2024 4:13 PM SWISS TYPE SCREW MACHINE OPERATOR 03/04/2024 4:23 PM SWISS TYPE SCREW MACHINE OPERATOR Cindy Garcia MD LAB - CHEMISTRY CHELI MONREAL [facility] [address] [place] [address], [place] [phone] * HEPATITIS C ANTIBODY (03/04/2024 4:13 PM SWISS TYPE SCREW MACHINE OPERATOR) [facility] Hepatitis C Antibody Non-react carlos Non-reac tive 03/04/2024 5:12 PM SWISS TYPE SCREW MACHINE OPERATOR [facility] Comment:Hepatitis C Antibody screen indicates no serologic evidence of past or current infection with Hepatitis C Virus. Patients with unexplained liver disease who are immunocompromised or suspected of having acute Hepatitis C infection may benefit from Nucleic Acid Test (YUSRA) for Hepatitis C Viral RNA to confirm Hepatitis C status. Blood BLOOD SPECIMEN / Unknown Lab Venipuncture / Unknown 03/04/2024 4:13 PM SWISS TYPE SCREW MACHINE OPERATOR 03/04/2024 4:23 PM SWISS TYPE SCREW MACHINE OPERATOR Cindy Garcia MD LAB - CHEMISTRY CHELI MONREAL [facility] [address] [place] [address], [facility] [phone] * (ABNORMAL) FERRITIN (03/04/2024 4:13 PM SWISS TYPE SCREW MACHINE OPERATOR) Ferritin 21(L) 22 - 275 ng/mL 03/04/2024 5:12 PM SWISS TYPE SCREW MACHINE OPERATOR [facility] Blood BLOOD SPECIMEN / Unknown Lab Venipuncture / Unknown 03/04/2024 4:13 PM SWISS TYPE SCREW MACHINE OPERATOR 03/04/2024 4:23 PM SWISS TYPE SCREW MACHINE OPERATOR Cindy Garcia MD LAB - CHEMISTRY CHELI MONREAL Performing Organization Address [facility] Co de Phone Number [facility] [address] [place] [address], [place] [phone] * DERMATOPATHOLOGY (09/27/2023 12:00 AM CDT) Only the most recent of2 resultswithin the time period is included. Case Report Dermatopathology Report ? Case: [id number] ? Authorizing Provider: ??Timothy Banks MD ? [...] specimen consists of a shave biopsy measuring [id number] mm. Jar 0. Specimen B: Received is [...] characteristic determined by the Dermatopathology Laboratory at [facility], directed by Dr. Randall Pringle. These tests need not be, and therefore are not, approved by the [place] Food and Drug Administration. The tests are used for clinical purposes. Billing Codes Specimen Charges Stain Charges 75023 72135 1 1 4 12:35 PM CDT DERMATOPATHOLOGY LABORATORY Embedded Images 4 12:35 PM CDT DERMATOPATHOLOGY LABORATORY Pathology/Cytology TISSUE SPECIMEN FROM SKIN / Unknown 09/27/2023 09/28/2023 10:46 AM CDT Miscellaneous samples (specimen) TISSUE SPECIMEN FROM SKIN / Unknown 09/27/2023 09/28/2023 10:46 AM CDT Timothy Banks MD LAB - PATHOLOGY/CYTO LOGY ORDERABLES DERMATOPATHOLOGY LABORATORY [facility] - Department of Dermatology [facility] Medicine [facility], [address] [place], [place] [id number] [place] [address] Care Teams Heart Doctor Relationship Specialty Start Date End Date Timothy Banks MD [address] [place] [address] PCP - General 10/19/18 Cindy Garcia MD [address] [place] [address] [facility] Hematology and Oncology 03/24/24
--- OUTSIDE RECORDS SUMMARY | 2024-04-11 13:49 | XMS_ITS | Clinical Summary ---
Author Organization [facility] Address [address] [place] [address] Care Team Providers Care Rehabilitation Counsellor Name Role Phone Timothy Banks MD Primary Care Provider [phone] Cindy Garcia MD Unavailable Source Comments [facility],non-owned Affiliates and Associated Physician Practices is amultiple site organization consisting of ambulatory clinics and hospital sitesin [place], [place], [place] and [place]. This disclosure is being madepursuant to the Care Everywhere program and may not contain all information available regarding this patient. Last updated 17.[facility] Allergies Active Allergy Reactions Criticality Noted Date [...] Encounters Date Type Department Care Team Description 04/11/2024 5:49 AM SCRUFF WORKER - 04/11/2024 11:05 AM SCRUFF WORKER Hospital Encounter [facility] HARRY OP [address] [place] [phone] Cindy Garcia MD Interven Radiology Discharge Disposition: Home or Self Care 04/10/2024 Orders Only [facility] BMT CLINIC [address] [place] [address] Cindy Garcia MD Chronic kidney disease, unspecified CKD stage 04/05/2024 Orders Only [facility] B[facility] CL[facility]IC [address] [place] [address] Cindy Garcia MD 04/04/2024 Telephone [facility] - Hematology/Oncolog y [address] [place] [address] Cindy Garcia MD Medication Prior Auth Request 04/01/2024 3:09 PM SCRUFF WORKER - 04/01/2024 11:59 PM SCRUFF WORKER Hospital Encounter [facility] CANCER CARE DRAWSTATION [address] [facility], 2nd [place] [address] Discharge Disposition: Home or Self Care 04/01/2024 2:00 PM SCRUFF WORKER Office Visit [facility] - Hematology/Oncolog y [address] [place] [address] Cindy Garcia MD 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) 04/01/2024 Orders Only [facility] B[facility] CL[facility]IC [address] [place] [address] Cindy Garcia MD Tumor lysis syndrome (HCC) 04/01/2024 Travel 04/01/2024 Orders Only [facility] [address] [place] [address] Cindy Garcia MD 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) 03/25/2024 Orders Only [facility] INFUSION CENTER [address] [place] [phone] Ekta Ferro, OFFICE SERVICES CLERK-PARADI TENDER 03/25/2024 Orders Only [facility] - Hematology/Oncolog y [address] [place] [phone] Cindy Garcia MD Acute myeloid leuk w multilin dysplasia, 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) 03/25/2024 Telephone [facility] at [facility] [address] [place] [phone] Adamaris Jesus, angular js developer 03/14/2024 Telephone [facility] - Hematology/Oncolog y [address] [place] [address] Cindy Garcia MD Medication Prior Auth Request 03/14/2024 Telephone [facility] - Hematology/Oncolog y [address] [place] [phone] Cindy Garcia MD Medication Prior Auth Request 03/14/2024 Telephone [facility] - Hematology/Oncolog y [address] [place] [phone] Cindy Garcia MD Medication Prior Auth Request 03/13/2024 7:14 PM SCRUFF WORKER - 03/23/2024 1:56 PM SCRUFF WORKER Hospital Encounter [facility] 7N ACUTE [address] [place] [address] Cindy Garcia MD Kumar, Ashwath, MD Schrader, MD Jodi Edwards, Josh Chavez MD Internal Medicine Discharge Disposition: Home or Self Care 03/13/2024 Travel 03/13/2024 Telephone [facility] BMT CLINIC [address] [place] [address] Cindy Garcia MD Medication Prior Auth Request 03/13/2024 Orders Only [facility] PHARMACY [address] [place] [address] Sammie Hartman, PharmD 03/13/2024 Orders Only [facility] CL[facility] [address] [place] [phone] Cindy Garcia MD 03/04/2024 3:35 PM SCRUFF WORKER - 03/04/2024 11:59 PM SCRUFF WORKER Hospital Encounter [facility] CANCER CARE DRAWSTATION [address] [place] [address], [address] [place] [address] Discharge Disposition: Home or Self Care 03/04/2024 2:00 PM SCRUFF WORKER Office Visit [facility] - Hematology/Oncolog y [address] [place] [phone] Cindy Garcia MD MDS (myelodysplastic syndrome) (HCC) (Primary Dx) 03/04/2024 Travel 03/04/2024 Orders Only [facility] [address] [place] [phone] Cindy Garcia MD MDS (myelodysplastic syndrome) (HCC) 03/01/2024 Orders Only [facility] B[facility] [address] [place] [phone] Cindy Garcia MD Neutropenia, unspecified type (HCC) 03/01/2024 Telephone [facility] - Hematology/Oncolog y [address] [place] [phone] Cindy Mansfield MA Appointment (Patient has comfirmed) 02/13/2024 Lab Requisition [facility] - Pathology Lab [address] [place] [phone] Rommel Dinh MD Illness, unspecified 02/12/2024 Lab Requisition [facility] - Pathology Lab [address] [place] [phone] Rommel Dinh MD Decreased white blood cell [...] heating? Not hard at all 03/13/2024 [facility] of Occupat ional Health - Occupational Stress [...] any time in the past 12 [facility], were you homeless or living in a long term (including now)? No 03/13/2024 Sex and Gender Information Value Date Recorded Sex Assigned at Male 03/05/2024 8:04 AM SCRUFF WORKER Gender Identity Male 03/05/2024 8:04 AM SCRUFF WORKER Sexual Orientation Straight 03/05/2024 8: 04 AM SCRUFF WORKER Last Filed Vital Signs Vital Sign Reading Time Taken Comments Blood Pressure 129/75 04/11/2024 10:30 AM SCRUFF WORKER Pulse 72 04/11/2024 10:30 AM SCRUFF WORKER Temperature 36.8 ??C (98.2 ??F) 04/11/2024 9:35 AM CS T Respiratory Rate 16 04/11/2024 10:30 AM SCRUFF WORKER Oxygen Saturation 93% 04/11/2024 10:30 AM SCRUFF WORKER Inhaled Oxygen Concentration - - Weight 96.8 kg (213 lb 4.8 oz) 04/11/2024 6:54 A M SCRUFF WORKER Height 182.9 cm (6') 04/11/2024 6:54 AM SCRUFF WORKER Body Mass Index 28.93 04/11/2024 6:54 AM SCRUFF WORKER Plan of Treatment Upcoming Encounters Date Type Department Care Team (Late st Contact Info) Description 04/15/2024 8:30 AM SCRUFF WORKER Hospital Encounter [facility] INF[facility]ION CENTER [address] [place] [phone] 04/16/2024 9:00 AM SCRUFF WORKER Hospital Encounter [facility] INF[facility]ION CENTER [address] [place] [phone] 04/17/2024 8:30 AM SCRUFF WORKER Appointment [facility] INF[facility]ION CENTER [address] [place] [phone] 04/18/2024 9:30 AM SCRUFF WORKER Appointment [facility] INF[facility]ION CENTER [address] [place] [phone] 04/18/2024 10:30 AM SCRUFF WORKER Office Visit [facility] - Hematology/Oncology [address] [place] [phone] Cindy Garcia MD [address] [place] [address] [place] [address] 04/19/2024 9:00 AM SCRUFF WORKER Appointment [facility] CENTER [address] [place] [phone] 05/13/2024 9:00 AM SCRUFF WORKER Appointment [facility] INF[facility]ION CENTER [address] [place] [phone] 05/28/2024 10:00 AM SCRUFF WORKER Office Visit [facility] - Nephrology [address] [facility] [place] [address] Cindy Garcia MD [address] [place] [phone] Santiago Meraz MD [address] [place] [address] Health Maintenance Due Date Last Done Comments PNEUMOCOCCAL VACCINE 65+ (1 of 2 - PCV) 1950 DTAP/TDAP/TD VACCINES (1 - Tdap) 11/04/1963 ZOSTER VACCINE (1 of 2) 11/04/1963 Respiratory Syncytial Virus (RSV) Vaccine Pt: or over 60 yrs (1 - 1-dose 75+ series) 11/04/2019 COVID-19 VACCINE ( - season) 2023 04/14/2021, 06/25/2020, 06/02/2020 DEPRESSION SCREENING 04/10/2024 MEDICARE AWV ? CALENDAR YEAR 2024 INFLUENZA VACCINE Completed 01/23/2024, , 12/25/2021, Additional [...] on patient's age to complete this topic Medical Devices Implanted Type Area Sewer And Cutter Finger Buff Material Device Identifier Shelf Expiration Date Model / Serial / Lot Port Implinfn Powerport Clrvu Argd Kandy Implanted:Qty : 1 on 04/11/2024 by Davian Marshall MD at [facility] Catheters Right: Chest Wall [employer] [id number] 02/07/2025 [id number] / / [id number] Procedures Procedure Name Priority Date/Time Associated Diagnosis Comments COMPREHENSIVE METABOLIC PANEL Routine 04/11/2024 10:54 AM SCRUFF WORKER Acute myeloid leuk w multilin dysplasia, 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) CBC W AUTO DIFFERENTIAL Routine 04/11/19 10:54 AM SCRUFF WORKER Acute myeloid leuk w multilin dysplasia, 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) PT-INR [facility] STAT 04/11/2024 7:20 AM SCRUFF WORKER 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) MDS (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, 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) PHOSPHORUS BLOOD Routine 04/01/2024 3:12 PM SCRUFF WORKER Tumor lysis syndrome (HCC) URIC ACID BLOOD Routine 04/01/2024 3:12 PM SCRUFF WORKER Tumor lysis syndrome (HCC) DIFFERENTIAL MANUAL Routine 04/01/2024 3 :12 PM SCRUFF WORKER 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) MAGNESIUM BLOOD Routine 04/01/2024 3:12 PM SCRUFF WORKER 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) ERYTHROPOIETIN Routine 04/01/2024 3:12 PM SCRUFF WORKER 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) SOLUBLE TRANSFERRIN RECEPTOR Routine 04/01/2024 3:12 PM SCRUFF WORKER 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) COMPREHENSIVE METABOLIC PANEL Routine 04/01/2024 3:12 PM SCRUFF WORKER 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) CBC W AUTO DIFFERENTIAL Routine 04/01/20 3:12 PM SCRUFF WORKER 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) LAB RESULTS ORDER 03/25/2024 DIFFERENTIAL MANUAL AM Draw 03/23/2024 1 2:25 AM SCRUFF WORKER MAGNESIUM BLOOD Routine 03/23/2024 12:25 AM SCRUFF WORKER URIC ACID BLOOD Routine 03/23/2024 12:25 AM SCRUFF WORKER PHOSPHORUS BLOOD Routine 03/23/2024 12:2 5 AM SCRUFF WORKER COMPREHENSIVE METABOLIC PANEL Routine 03/23/2024 12:25 AM SCRUFF WORKER LDH BLOOD Routine 03/23/2024 12:25 AM SCRUFF WORKER PTT [facility] AM Draw 03/23/2024 12:25 AM SCRUFF WORKER PT-INR [facility] AM Draw 03/23/2024 12:25 AM SCRUFF WORKER CBC W AUTO DIFFERENTIAL AM Draw 03/23/20 12:25 AM SCRUFF WORKER MAGNESIUM BLOOD Routine 03/22/2024 6:20 PM SCRUFF WORKER URIC ACID BLOOD Routine 03/22/2024 6:20 PM SCRUFF WORKER PHOSPHORUS BLOOD Routine 03/22/2024 6:20 PM SCRUFF WORKER COMPREHENSIVE METABOLIC PANEL Routine 03/22/2024 6:20 PM SCRUFF WORKER LDH BLOOD Routine 03/22/2024 6:20 PM SCRUFF WORKER DIFFERENTIAL MANUAL AM Draw 03/22/2024 6 :58 AM SCRUFF WORKER MAGNESIUM BLOOD Routine 03/22/2024 6:58 AM SCRUFF WORKER URIC ACID BLOOD Routine 03/22/2024 6:58 AM SCRUFF WORKER PHOSPHORUS BLOOD Routine 03/22/2024 6:58 AM SCRUFF WORKER COMPREHENSIVE METABOLIC PANEL Routine 03/22/2024 6:58 AM SCRUFF WORKER LDH BLOOD Routine 03/22/2024 6:58 AM SCRUFF WORKER PTT [facility] AM Draw 03/22/2024 6:58 AM SCRUFF WORKER PT-INR [facility] AM Draw 03/22/2024 6:58 AM SCRUFF WORKER CBC W AUTO DIFFERENTIAL AM Draw 03/22/20 24 6:58 AM SCRUFF WORKER MAGNESIUM BLOOD Routine 03/21/2024 3:47 AM SCRUFF WORKER URIC ACID BLOOD Routine 03/21/2024 3:47 AM SCRUFF WORKER PHOSPHORUS BLOOD Routine 03/21/2024 3:47 AM SCRUFF WORKER COMPREHENSIVE METABOLIC PANEL Routine 03/21/2024 3:47 AM SCRUFF WORKER LDH BLOOD Routine 03/21/2024 3:47 AM SCRUFF WORKER PTT [facility] AM Draw 03/21/2024 3:47 AM SCRUFF WORKER PT-INR [facility] AM Draw 03/21/2024 3:47 AM SCRUFF WORKER CBC W AUTO DIFFERENTIAL AM Draw 03/21/20 24 3:47 AM SCRUFF WORKER MAGNESIUM BLOOD Routine 03/20/2024 4:07 PM SCRUFF WORKER URIC ACID BLOOD Routine 03/20/2024 4:07 PM SCRUFF WORKER PHOSPHORUS BLOOD Routine 03/20/2024 4:07 PM SCRUFF WORKER COMPREHENSIVE METABOLIC PANEL Routine 03/20/2024 4:07 PM SCRUFF WORKER LDH BLOOD Routine 03/20/2024 4:07 PM SCRUFF WORKER DIFFERENTIAL MANUAL AM Draw 03/20/2024 6 :28 AM SCRUFF WORKER LDH BLOOD Routine 03/20/2024 6:28 AM SCRUFF WORKER PTT [facility] AM Draw 03/20/2024 6:28 AM SCRUFF WORKER PT-INR [facility] AM Draw 03/20/2024 6:28 AM SCRUFF WORKER URIC ACID BLOOD Routine 03/20/2024 6:28 AM SCRUFF WORKER PHOSPHORUS BLOOD Routine 03/20/2024 6:28 AM SCRUFF WORKER MAGNESIUM BLOOD Routine 03/20/2024 6:28 AM SCRUFF WORKER COMPREHENSIVE METABOLIC PANEL AM Draw 03/20/2024 6:28 AM SCRUFF WORKER CBC W AUTO DIFFERENTIAL AM Draw 03/20/20 6:28 AM SCRUFF WORKER DIFFERENTIAL MANUAL AM Draw 03/19/2024 6 :23 AM SCRUFF WORKER LDH BLOOD Routine 03/19/2024 6:23 AM SCRUFF WORKER PTT [facility]H AM Draw 03/19/2024 6:23 AM SCRUFF WORKER PT-INR [facility] AM Draw 03/19/2024 6:23 AM SCRUFF WORKER URIC ACID BLOOD Routine 03/19/2024 6:23 AM SCRUFF WORKER PHOSPHORUS BLOOD Routine 03/19/2024 6:23 AM SCRUFF WORKER MAGNESIUM BLOOD Routine 03/19/2024 6:23 AM SCRUFF WORKER COMPREHENSIVE METABOLIC PANEL AM Draw 03/19/2024 6:23 AM SCRUFF WORKER CBC W AUTO DIFFERENTIAL AM Draw 03/19/20 6:23 AM SCRUFF WORKER EKG 12-LEAD Routine 03/18/2024 1:48 PM SCRUFF WORKER Inverted T wave PATHOLOGY PERIPHERAL SMEAR REVIEW AM Draw 03/18/2024 8:33 AM SCRUFF WORKER DIFFERENTIAL MANUAL AM Draw 03/18/2024 8 :33 AM SCRUFF WORKER LDH BLOOD Routine 03/18/2024 8:33 AM SCRUFF WORKER PTT SLH AM Draw 03/18/2024 8:33 AM SCRUFF WORKER PT-INR [facility] AM Draw 03/18/2024 8:33 AM SCRUFF WORKER URIC ACID BLOOD Routine 03/18/2024 8:33 AM SCRUFF WORKER PHOSPHORUS BLOOD Routine 03/18/2024 8:33 AM SCRUFF WORKER MAGNESIUM BLOOD Routine 03/18/2024 8:33 AM SCRUFF WORKER COMPREHENSIVE METABOLIC PANEL AM Draw 03/18/2024 8:33 AM SCRUFF WORKER CBC W AUTO DIFFERENTIAL AM Draw 03/18/20 8:33 AM SCRUFF WORKER DIFFERENTIAL MANUAL AM Draw 03/17/2024 5 :28 AM SCRUFF WORKER LDH BLOOD Routine 03/17/2024 5:28 AM SCRUFF WORKER PTT SLH AM Draw 03/17/2024 5:28 AM SCRUFF WORKER PT-INR SL[facility] AM Draw 03/17/2024 5:28 AM SCRUFF WORKER URIC ACID BLOOD Routine 03/17/2024 5:28 AM SCRUFF WORKER PHOSPHORUS BLOOD Routine 03/17/2024 5:28 AM SCRUFF WORKER MAGNESIUM BLOOD Routine 03/17/2024 5:28 AM SCRUFF WORKER COMPREHENSIVE METABOLIC PANEL AM Draw 03/17/2024 5:28 AM SCRUFF WORKER CBC W AUTO DIFFERENTIAL AM Draw 03/17/20 24 5:28 AM SCRUFF WORKER DIFFERENTIAL MANUAL AM Draw 03/16/2024 1 2:04 AM SCRUFF WORKER LDH BLOOD Routine 03/16/2024 12:04 AM SCRUFF WORKER PTT SLH AM Draw 03/16/2024 12:04 AM SCRUFF WORKER PT-INR [facility] AM Draw 03/16/2024 12:04 AM SCRUFF WORKER URIC ACID BLOOD Routine 03/16/2024 12:04 AM SCRUFF WORKER PHOSPHORUS BLOOD Routine 03/16/2024 12:0 4 AM SCRUFF WORKER MAGNESIUM BLOOD Routine 03/16/2024 12:04 AM SCRUFF WORKER COMPREHENSIVE METABOLIC PANEL AM Draw 03/16/2024 12:04 AM SCRUFF WORKER CBC W AUTO DIFFERENTIAL AM Draw 03/16/20 24 12:04 AM SCRUFF WORKER ECHO COMPLETE W CONTRAST Routine 03/15/2024 1:47 PM SCRUFF WORKER MDS (myelodysplastic syndrome) (HCC) MYELOID MALIGNANCIES MUTATION PNL Routine 03/15/2024 9:05 AM SCRUFF WORKER MDS (myelodysplastic syndrome) (HCC) FISH MDS PANEL BLOOD OR BONE MARROW Routine 03/15/2024 9:05 AM SCRUFF WORKER MDS (myelodysplastic syndrome) (HCC) FISH AML PANEL BLOOD OR BM RFLX PML/DANTE Routine 03/15/2024 9:05 AM SCRUFF WORKER MDS (myelodysplastic syndrome) (HCC) FLOW CYTOMETRY BONE MARROW Routine 03/15/2024 9:05 AM SCRUFF WORKER MDS (myelodysplastic syndrome) (HCC) BONE MARROW BIOPSY (STL) Routine 03/15/2024 9:05 AM SCRUFF WORKER MDS (myelodysplastic syndrome) (HCC) FISH PML/DANTE PANEL Routine 03/15/2024 9 :05 AM SCRUFF WORKER MDS (myelodysplastic syndrome) (HCC) CHROMOSOME ANALYSIS BONE MARROW PANEL Routine 03/15/2024 9:05 AM SCRUFF WORKER MDS (myelodysplastic syndrome) (HCC) LAB MISC TEST (NOT BLOOD) Routine 03/15/2024 9:05 AM SCRUFF WORKER LAB MISC TEST (NOT BLOOD) Routine 03/15/2024 9:05 AM SCRUFF WORKER LAB MISC TEST (NOT BLOOD) Routine 03/15/2024 9:05 AM SCRUFF WORKER DIFFERENTIAL MANUAL AM Draw 03/15/2024 7 :53 AM SCRUFF WORKER LDH BLOOD Routine 03/15/2024 7:53 AM SCRUFF WORKER PTT SLH AM Draw 03/15/2024 7:53 AM SCRUFF WORKER PT-INR [facility] AM Draw 03/15/2024 7:53 AM SCRUFF WORKER URIC ACID BLOOD Routine 03/15/2024 7:53 AM SCRUFF WORKER PHOSPHORUS BLOOD Routine 03/15/2024 7:53 AM SCRUFF WORKER MAGNESIUM BLOOD Routine 03/15/2024 7:53 AM SCRUFF WORKER COMPREHENSIVE METABOLIC PANEL AM Draw 03/15/2024 7:53 AM SCRUFF WORKER CBC W AUTO DIFFERENTIAL AM Draw 03/15/20 24 7:53 AM SCRUFF WORKER EKG 12-LEAD STAT 03/14/2024 12:30 PM SCRUFF WORKER MDS (myelodysplastic syndrome) (HCC) FLOW CYTOMETRY BLOOD PROFILE Routine 03/14/2024 10:32 AM SCRUFF WORKER MDS (myelodysplastic syndrome) (HCC) DIFFERENTIAL MANUAL STAT 03/13/2024 1 1:26 PM SCRUFF WORKER LDH BLOOD Routine 03/13/2024 11:26 PM SCRUFF WORKER PTT SLH Routine 03/13/2024 11:26 PM SCRUFF WORKER PT-INR SLH Routine 03/13/2024 11:26 PM SCRUFF WORKER FIBRINOGEN ACTIVITY Routine 03/13/2024 1 1:26 PM SCRUFF WORKER D-DIMER Routine 03/13/2024 11:26 PM SCRUFF WORKER URIC ACID BLOOD Routine 03/13/2024 11:26 PM SCRUFF WORKER PHOSPHORUS BLOOD Routine 03/13/2024 11:2 6 PM SCRUFF WORKER MAGNESIUM BLOOD Routine 03/13/2024 11:26 PM SCRUFF WORKER COMPREHENSIVE METABOLIC PANEL STAT 03/13/2024 11:26 PM SCRUFF WORKER CBC W AUTO DIFFERENTIAL STAT 03/13/20 11:26 PM SCRUFF WORKER QUINN-TOVAR VIRUS QUANT BLOOD STL Routine 03/13/2024 11:26 PM SCRUFF WORKER CYTOMEGALOVIRUS (CMV) QUANTITATIVE PLASMA Routine 03/13/2024 11:26 PM SCRUFF WORKER CHROMOSOME ANALYSIS LEUKEMIA BLD Routine 03/04/2024 4:13 PM SCRUFF WORKER MDS (myelodysplastic syndrome) (HCC) FISH PML/DANTE PANEL Routine 03/04/2024 4 :13 PM SCRUFF WORKER MDS (myelodysplastic syndrome) (HCC) FISH AML PANEL BLOOD OR BM RFLX PML/DANTE Routine 03/04/2024 4:13 PM SCRUFF WORKER MDS (myelodysplastic syndrome) (HCC) FISH AML+MDS PANEL BLOOD OR BONE MARROW Routine 03/04/2024 4:13 PM SCRUFF WORKER MDS (myelodysplastic syndrome) (HCC) MYELOID MALIGNANCIES MUTATION PNL STAT 03/04/2024 4:13 PM SCRUFF WORKER MDS (myelodysplastic syndrome) (HCC) DIFFERENTIAL MANUAL Routine 03/04/2024 4 :13 PM SCRUFF WORKER Neutropenia, unspecified type (HCC) BCR-ABL1 CML+AML PCR QUANT PNL Routine 03/04/2024 4:13 PM SCRUFF WORKER MDS (myelodysplastic syndrome) (HCC) CYTOMEGALOVIRUS ANTIBODY IGG BLOOD Routine 03/04/2024 4:13 PM SCRUFF WORKER MDS (myelodysplastic syndrome) (HCC) HEPATITIS C ANTIBODY Routine 03/04/2024 4:13 PM SCRUFF WORKER Neutropenia, unspecified type (HCC) HEPATITIS B SURFACE ANTIBODY Routine 03/04/2024 4:13 PM SCRUFF WORKER Neutropenia, unspecified type (HCC) HIV-1 HIV-2 ANTIBODY + HIV P24 AG PANEL Routine 03/04/2024 4:13 PM SCRUFF WORKER Neutropenia, unspecified type (HCC) ERYTHROCYTE SEDIMENTATION RATE Routine 03/04/2024 4:13 PM SCRUFF WORKER Neutropenia, unspecified type (HCC) C-REACTIVE PROTEIN Routine 03/04/2024 4: 13 PM SCRUFF WORKER Neutropenia, unspecified type (HCC) RHEUMATOID FACTOR BLOOD QUANTITATIVE Routine 03/04/2024 4:13 PM SCRUFF WORKER Neutropenia, unspecified type (HCC) MARLINE BLOOD SCREEN W/REFLEX TITER Routine 03/04/2024 4:13 PM SCRUFF WORKER Neutropenia, unspecified type (HCC) FERRITIN Routine 03/04/2024 4:13 PM SCRUFF WORKER Neutropenia, unspecified type (HCC) IRON + TRANSFERRIN PANEL Routine 03/04/2024 4:13 PM SCRUFF WORKER Neutropenia, unspecified type (HCC) TSH REFLEX FREE T4 Routine 03/04/2024 4: 13 PM SCRUFF WORKER Neutropenia, unspecified type (HCC) ZINC BLOOD Routine 03/04/2024 4:13 PM SCRUFF WORKER Neutropenia, unspecified type (HCC) COPPER BLOOD Routine 03/04/2024 4:13 PM SCRUFF WORKER Neutropenia, unspecified type (HCC) FOLATE Routine 03/04/2024 4:13 PM SCRUFF WORKER Neutropenia, unspecified type (HCC) VITAMIN B12 Routine 03/04/2024 4:13 PM SCRUFF WORKER Neutropenia, unspecified type (HCC) COMPREHENSIVE METABOLIC PANEL Routine 03/04/2024 4:13 PM SCRUFF WORKER Neutropenia, unspecified type (HCC) CBC W AUTO DIFFERENTIAL Routine 03/04/20 4:13 PM SCRUFF WORKER Neutropenia, unspecified type (HCC) HEPATITIS B CORE ANTIBODY TOTAL Routine 03/04/2024 4:13 PM SCRUFF WORKER Neutropenia, unspecified type (HCC) BONE MARROW BIOPSY (STL) Routine 02/12/2024 9:20 AM SCRUFF WORKER Illness, unspecified FLOW CYTOMETRY BONE MARROW Routine 02/12/2024 9:20 AM SCRUFF WORKER Decreased white blood cell count, unspecified from Last 3 Months Results * (ABNORMAL) CBC WITH DIFFERENTIAL (04/11/2024 10:54 AM SCRUFF WORKER) Only the most recent of13 resultswithin the time period is included. WBC 0.2(LL) 4.0 - 10.7 x10E9/L 04/11/2024 12:38 PM SCRUFF WORKER [facility] Comment:No differential repo rted. WBC count <0.5 RBC Count 3.53(L) 4.30 - 5.80 x10E12/L 04/11/2024 12:38 PM [facility] Hemoglobin 10.0(L) 13.3 - 17.5 g/dL 04/11/2024 12:38 PM [facility] Hematocrit 30.4(L) 38.7 - 51.1 % 04/11/2024 12:38 PM [facility] MCV 86.1 80.0 - 98.0 fL 04/11/2024 12:38 PM [facility] MCH 28.3 26.7 - 33.6 pg 04/11/2024 12:38 PM [facility] MCHC 32.9 31.7 - 36.3 g/dL 04/11/2024 12:38 PM [facility] RDW-CV 18.3(H) 11.3 - 14.8 % 04/11/2024 12:38 PM [facility] Platelet Count 89(L) 150 - 420 x10E9/L 04/11/2024 12:38 PM [facility] MPV 9.8 7.8 - 11.4 fL 04/11/2024 12:38 PM [facility] Blood BLOOD SPECIMEN / Unknown Venipuncture / Unknown 04/11/2024 10:54 AM SCRUFF WORKER 04/11/2024 11:42 AM SCRUFF WORKER Cindy Garcia MD LAB - HEMATOLOGY ORD ERABLES Performing Organization Address City/State/[facility] Co de Phone Number [address] [phone] [phone] * (ABNORMAL) COMPREHENSIVE METABOLIC PANEL (04/11/2024 10:54 AM SCRUFF WORKER) Only the most recent of15 resultswithin the time period is included. BUN 12 7 - 26 mg/dL 04/11/2024 1:41 PM [facility] Creatinine 1.09 0.71 - 1.16 mg/dL 04/11/2024 1:41 PM [facility] Sodium 142 136 - 145 mmol/L 04/11/2024 1:41 PM [facility] Potassium 3.5 3.5 - 4.5 mmol/L 04/11/2024 1:41 PM [facility] Chloride 110(H) 98 - 107 mmol/L 04/11/2024 1:41 PM [facility] CO2 22 22 - 29 mmol/L 04/11/2024 1:41 PM [facility] Glucose 130(H) 70 - 99 mg/dL 04/11/2024 1:41 PM [facility] Calcium 8.7 8.4 - 10.2 mg/dL 04/11/2024 1:41 PM [facility] Protein Total 5.8(L) 6.0 - 8.3 g/dL 04/11/2024 1:41 PM [facility] Albumin 3.2(L) 3.4 - 5.0 g/dL 04/11/2024 1:41 PM [facility] Bilirubin Total 1.0 0.2 - 1.2 mg/dL 04/11/2024 1:41 PM [facility] Alkaline Phosphatase 108 40 - 150 U/L 04/11/2024 1:41 PM [facility] ALT 19 5 - 55 U/L 04/11/2024 1:41 PM [facility] AST 16 5 - 34 U/L 04/11/2024 1:41 PM [facility] Anion Gap 10 6 - 16 04/11/2024 1:41 PM [facility] BUN/Creatinine Ratio 11 7 - 23 04/11/2024 1:41 PM [facility] Osmolality Calculated 296(H) 275 - 295 mOsm/kg 04/11/2024 1:41 PM [facility] Albumin/Globulin Ratio 1.2 1.1 - 2.3 04/11/2024 1:41 PM [facility] eGFR by CKD-EPI 69(L) >=90 mL/min/1.7 3 m2 04/11/2024 1:41 PM [facility] Blood BLOOD SPECIMEN / Unknown Venipuncture / Unknown 04/11/2024 10:54 AM SCRUFF WORKER 04/11/2024 11:42 AM SCRUFF WORKER Cindy Garcia MD LAB - CHEMISTRY ORDNatalie [facility] [address] [place] [address], [facility] [phone] * PT-INR [facility] (04/11/2024 7:20 AM SCRUFF WORKER) Only the most recent of11 resultswithin the time period is included. [facility] PT 14.6 12.1 - 14.8 Seconds 04/11/2024 7:56 AM SCRUFF WORKER [facility] INR 1.2 See Comment 04/11/2024 7:56 AM [facility] Comment:The suggested therap eutic range for standard coumadin (warfarin) therapy is an INR of 2.0-3.0. For high-risk patients (Mechanical Mitral Valve Prosthesis, etc.), the suggested prophylactic therapeutic range is an INR of 2.5-3.5. Blood BLOOD SPECIMEN / Unknown Venipuncture / Unknown 04/11/2024 7:20 AM SCRUFF WORKER 04/11/2024 7:23 AM SCRUFF WORKER Cindy Garcia MD LAB - COAGULATION OR DERABLES Performing Organization Address [facility]/ZIP Co de Phone Number [address] [address], [facility] [phone] * URIC ACID BLOOD (04/01/2024 3:12 PM SCRUFF WORKER) Only the most recent of13 resultswithin the time period is included. [facility] Uric Acid 4.0 3.5 - 7.2 mg/dL 04/01/2024 5:52 PM SCRUFF WORKER [facility] Blood BLOOD SPECIMEN / Unknown Lab Venipuncture / Unknown 04/01/2024 3:12 PM SCRUFF WORKER 04/01/2024 5:30 PM SCRUFF WORKER Cindy Garcia MD LAB - CHEMISTRY CHELI MONREAL [facility] [address] [place] [address], [facility] [phone] * ERYTHROPOIETIN (04/01/2024 3:12 PM SCRUFF WORKER) [facility] Erythropoietin 22 4 - 27 mU/mL 04/02/2024 11:36 AM [facility] ([facility]) Comment: INTERPRETIVE INFORMATION: Erythropoietin Normal serum concentrations [...] may benefit from therapy with recombinant EPO ([facility] [phone],1989). Performed By: [facility] [address] [place] [address] Dough Catcher: Uche Morley MD, PhD CLIA Number: [id number] Blood BLOOD SPECIMEN / Unknown Lab Venipuncture / Unknown 04/01/2024 3:12 PM SCRUFF WORKER 04/01/2024 3:22 PM SCRUFF WORKER Cindy Garcia MD [facility] - [facility] [employer] ([facility]) [address] [place] [address], [facility] * SOLUBLE TRANSFERRIN RECEPTOR (04/01/2024 3:12 PM SCRUFF WORKER) [facility] Soluble Transferrin Receptor 3.3 2.2 - 5.0 mg/L 04/02/2024 9:13 PM SCRUFF WORKER [facility] [employer] ([facility]) Comment: INTERPRETIVE INFORMATION: Soluble Transferrin Receptor People [...] ??High ? Normal ? High Performed By: [facility] [employer] [address] [place] [address] Dough Catcher: Uche Morley MD, PhD CLIA Number: [id number] Blood BLOOD SPECIMEN / Unknown Lab Venipuncture / Unknown 04/01/2024 3:12 PM SCRUFF WORKER 04/01/2024 3:22 PM SCRUFF WORKER Cindy Garcia MD LAB - CHEMISTRY CHELI MONREAL [facility] ([facility]) [address] [place] [address], [facility] * (ABNORMAL) DIFFERENTIAL MANUAL (04/01/2024 3:12 PM SCRUFF WORKER) Only the most recent of11 resultswithin the time period is included. Neutrophil % 31(L) 41 - 74 % 04/01/2024 5:13 PM SCRUFF WORKER [facility] Lymphocyte % 60(H) 17 - 47 % 04/01/2024 5:13 PM SCRUFF WORKER [facility] Monocyte % 9 3 - 11 % 04/01/2024 5:13 PM [facility] Neutrophil Absolute 0.25(L) 1.60 - 7.50 x10E9/L 04/01/2024 5:13 PM [facility] Lymphocyte Absolute 0.48(L) 1.00 - 4.40 x10E9/L 04/01/2024 5:13 PM [facility] Monocyte Absolute 0.07(L) 0.15 - 1.00 x10E9/L 04/01/2024 5:13 PM [facility] RBC Morphology REVIEWED 04/01/2024 5:13 PM [facility] Savannah Cells MANY(A) (none) 04/01/2024 5:13 PM [facility] Schistocytes FEW(A) (none) 04/01/2024 5:13 PM [facility] Blood BLOOD SPECIMEN / Unknown Lab Venipuncture / Unknown 04/01/2024 3:12 PM SCRUFF WORKER 04/01/2024 3:36 PM SCRUFF WORKER Cindy Garcia MD LAB - HEMATOLOGY ORD ERABLES [facility] [address] [place] [address], [facility] [phone] * PHOSPHORUS BLOOD (04/01/2024 3:12 PM SCRUFF WORKER) Only the most recent of13 resultswithin the time period is included. Phosphorus 2.9 2.8 - 5.1 mg/dL 04/01/2024 5:52 PM [facility] Blood BLOOD SPECIMEN / Unknown Lab Venipuncture / Unknown 04/01/2024 3:12 PM SCRUFF WORKER 04/01/2024 5:30 PM SCRUFF WORKER Cindy Garcia MD LAB - CHEMISTRY ORDE JOCELIN [facility] [address] [place] [address], [facility] [phone] * MAGNESIUM BLOOD (04/01/2024 3:12 PM SCRUFF WORKER) Only the most recent of13 resultswithin the time period is included. Pathologist [facility] Magnesium 2.1 1.6 - 2.6 mg/dL 04/01/2024 4:25 PM SCRUFF WORKER [facility] Comment:Hemolysis detected i n this specimen. Hemolysis is known to cause elevations in this analyte. Caution should be exercised in the interpretation of this result. Recommend repeat testing if clinically indicated. Blood BLOOD SPECIMEN / Unknown Lab Venipuncture / Unknown 04/01/2024 3:12 PM SCRUFF WORKER 04/01/2024 3:36 PM SCRUFF WORKER Cindy Garcia MD LAB - CHEMISTRY CHELI MONREAL [address] [address], [facility] [phone] * LAB RESULTS ORDER (03/25/2024) 03/25/2024 Narrative 03/25/2024 Ordered by an unspecified provider. Scanned Document LAB - THERAPEUTIC DR VANCE MONITORING ORDERABLES * PTT [facility] (03/23/2024 12:25 AM SCRUFF WORKER) Only the most recent of10 resultswithin the time period is included. [facility] APTT 35.4 23.0 - 38.4 Seconds 03/23/2024 1:31 AM SCRUFF WORKER [facility] Comment:Suggested therapeuti c range for full dose I.V. unfractionated heparin therapy for venous 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 is 71 to 109 seconds. Blood BLOOD SPECIMEN / Unknown Venipuncture / Unknown 03/23/2024 12:25 AM SCRUFF WORKER 03/23/2024 1:05 AM SCRUFF WORKER Ghanshyam Dewey PA-C LAB - COAGULATION OR DERABLES [address] [address], [place] [phone] * LDH BLOOD (03/23/2024 12:25 AM SCRUFF WORKER) Only the most recent of12 resultswithin the time period is included. [facility] LDH Total 173 125 - 243 Units/L 03/23/2024 1:36 AM SCRUFF WORKER [facility] Blood BLOOD SPECIMEN / Unknown Venipuncture / Unknown 03/23/2024 12:25 AM SCRUFF WORKER 03/23/2024 1:07 AM SCRUFF WORKER Josh Momin MD LAB - CHEMISTRY ORD ERABLES [facility] [address] [place] [address], [facility] [phone] * EKG 12-LEAD (03/18/2024 1:48 PM SCRUFF WORKER) Only the most recent of2 resultswithin the time period is included. [facility] Ventricular Rate 75 BPM [facility] MUSE Atrial Rate 75 BPM [facility] MUSE P-R Interval 122 ms [facility] MUSE QRS Duration ms 118 ms [facility] MUSE Q-T Interval ms 410 ms [facility] MUSE QTC Calculation (Bezet) 457 ms [facility] MUSE Calculated P [place] 42 degrees [facility] MUSE Calculated R [place] 36 degrees [facility] MUSE Calculated T [place] -134 degrees [facility] MUSE Interpretation EKG NORMAL SINUS RHYTHM WITH SINUS ARRHYTHMIA INCOMPLETE RIGHT BUNDLE BRANCH BLOCK ST & MARKED T WAVE ABNORMALITY, CONSIDER ANTEROLATERAL ISCHEMIA ABNORMAL ECG NO PREVIOUS ECGS AVAILABLE Confirmed by ROVERTO BELTRE MD ([id number]) on 03/22/2024 12:50:34 PM [facility] MUSE 03/18/2024 1:48 PM SCRUFF WORKER 03/22/2024 12:50 PM SCRUFF WORKER Caity Ortiz OFFICE SERVICES CLERK-PARADI TENDER ECG ORDERABL ES [facility] MUSE * PATHOLOGY PERIPHERAL SMEAR REVIEW (03/18/2024 8:33 AM SCRUFF WORKER) [facility] Path Review Confirmed 03/18/2024 2:44 PM SCRUFF WORKER [facility] Blood BLOOD SPECIMEN / Unknown Lab Venipuncture / Unknown 03/18/2024 8:33 AM SCRUFF WORKER 03/18/2024 8:46 AM SCRUFF WORKER Narrative [facility] - 03/18/2024 2:44 PM SCRUFF WORKER A rare blast seen. Ghanshyam Dewey PA-C LAB - PATHOLOGY/CYTO LOGY ORDERABLES [facility] [address] [place] [address], [facility] [phone] * ECHO COMPLETE W CONTRAST (03/15/2024 1:47 PM SCRUFF WORKER) IVSd 2D 1.314 cm SSM CV FUJ [...] Region Laterality Modality Ultrasound 03/15/2024 2:04 PM SCRUFF WORKER Narrative 03/15/2024 5:17 PM SCRUFF WORKER Summary ??* The left ventricle is normal [...] 1945 Gender: ? Male Accession #: ? [id number] Ht: ? 72 in Wt: ? 218 lb BSA: ? 2.26 m2 HR: ? 65 bpm BP: ? 103 / ? 55 mmHg Exam Date: ? 03/15/2024 2:04 PM Patient Status: ? I/P Study Site: ? [facility] Primary Location: ? [facility] EStudy Info Technical Quality: ? Adequate [...] ? Ted Soler Fellow: ? Josh Knight Php Lamp Developer: ? Dhruv Sorto Left Ventricle ??Left ventricular [...] 2:04 PM Patient Status: I/P Study Site: [facility] Primary Location: [facility] EStud Info Technical Quality: Adequate Exam Type: ECHO COMPLETE W CONTRAST Indications D46.9 - MDS (myelodysplastic syndrome) (HCC) Procedure(s) * A complete 2D, color Doppler, spectral Doppler and M-Modetransthoracic echocardiogram was performed with an Ultrasound Enhancing Agent (UEA). Contrast/Agitated Saline Contrast / Saline: Definity Amount: 0.50 ml Administered By: Dhruv Sorot Reaction to Contrast: no Reason for Technically Difficult Study: body habitus Staff Referring Physician: Ted Soler Ordering Provider: Ted Soler Attending Physician: Ted Soler Fellow: Josh Knight Php Lamp Developer: Dhruv Sorto Left Ventricle Left ventricular systolic [...] BLOOD OR BONE MARROW (03/15/2024 9:05 AM SCRUFF WORKER) [facility] MDS Panel by Fish See Note Normal 024 11:26 AM SCRUFF WORKER [employer] ([facility]) Comment: Test Performed: Myelodysplastic Syndrome [...] 7, deletion 7q31, trisomy 8, or deletion 86y81-i71.1. This analysis was performed with the MDS panel probes D5S23/EGR1, D7Z1/C9X415, CEP8 ([employer]), and Del(20q) ([employer]). A total of 200 cells were scored for each probe. Cytogenomic Nomenclature (ISCN): nuc nereyda(D5S23,EGR1,D7Z1,J4A330,D8Z2,F77J727,MYBL2)x2[200' This result has been reviewed and approved by Nabila Gonzalez, PhD, [facility] A portion of this analysis was performed at the following location(s): [facility] Site CG-ND#2 INTERPRETIVE INFORMATION: MDS Panel by FISH This test was developed and its performance characteristics determined by [facility]. It has not been cleared or approved by the US Food and Drug Administration. This test was performed in a CLIA certified laboratory and is intended for clinical purposes. EER MDS Fish Panel See Note 2023 11:26 AM SCRUFF WORKER [employer] ([facility]) Comment: Authorized individuals can access the [employer] Enhanced Report using the following link: [email or web address] Performed By: [facility] [address] [place] [address] Dough Catcher: Uche Morley MD, PhD CLIA Number: [id number] Other BONE MARROW SPECIMEN / Unknown Collection / Unknown 03/15/2024 9:05 AM SCRUFF WORKER 03/15/2024 9:30 AM SCRUFF WORKER Rodo Perez MD LAB - PATHOLOG Y/CYTOLOGY ORDERABLES [employer] [facility]) [address] [place] [address], [facility] * FISH AML PANEL BLOOD OR BM RFLX PML/DANTE (03/15/2024 9:05 AM SCRUFF WORKER) Only the most recent of2 resultswithin the time period is included. [facility] Signature FISH AML Panel See Note Normal 03/25/2024 10:34 AM SCRUFF WORKER [employer] ([facility]) Comment: Test Performed: Acute Myeloid Leukemia Panel by FISH (FISHAML) Specimen Type: Bone Marrow Indication for Testing: Myelodysplastic syndrome, unspecified RESULT Normal FISH Result inv(3) or t(3;3) GATA2::MECOM Fusion: ??not detected Deletion 5q: ??not detected Monosomy 7: ??not detected Deletion 7q: ??not detected t(8;21) RUNX1::KPQQ7H0 Fusion: ??not detected 11p15 (NUP98) Rearrangement: ??not detected 11q23 (KMT2A) Rearrangement: ??not detected inv(16) or t(16;16) CBFB::MYH11 Fusion: ??not detected INTERPRETATION There was no evidence of GATA2::MECOM (also known as RPN1-EVI1) fusion due to 3q21/3q26.2 inversion or translocation, deletion 5q31, monosomy 7, deletion 7q31, RUNX1::LBFQ4S5 fusion due to translocation (8;21)(q21.3;q22), 11p15 (NUP98) rearrangement, 11q23 KMT2A (MLL) rearrangement, or CBFB::MYH11 fusion due to either 16p13.1/16q22 inversion or translocation. This analysis was performed with the AML panel probes RPN1/MECOM, D5S23/EGR1, D7Z1/Q6R388, RUNX1/ALDQ4R5 ([employer]), NUP98 and CBFB-MYH11 ([employer]), and MLL (KMT2A) ([employer]). A total of 200 cells were scored for each probe. Cytogenomic Nomenclature (ISCN): nuc nereyda(RPN1,MECOM,D5S23,EGR1,D7Z1,O0I818,WHGK5D9,NUP98,KMT2A,MYH11,CBF B,RUNX1)x2[200' This result has been reviewed and approved by Mundo Mejia, PhD, [facility] A portion of this analysis was performed at the following location(s): [facility] Site CG-CO#1 INTERPRETIVE INFORMATION: AML Panel by FISH This test was developed and its performance characteristics determined by [facility]. It has not been cleared or approved by the US Food and Drug Administration. This test was performed in a CLIA certified laboratory and is intended for clinical purposes. EER AML Panel by FISH See Note 03/25/2024 10:34 AM SCRUFF WORKER [facility] [employer] ([facility]) Comment: Authorized individuals can access the [facility] Enhanced Report using the following link: [email or web address] Performed By: [facility] [address] [place] [address] Dough Catcher: Uche Morley MD, PhD CLIA Number: [id number] Other BONE MARROW SPECIMEN / Unknown Collection / Unknown 03/15/2024 9:05 AM SCRUFF WORKER 03/15/2024 9:30 AM SCRUFF WORKER Rodo Perez MD LAB - PATHOLOG Y/CYTOLOGY ORDERABLES Performing Organization Address City/State/[facility] Co de Phone Number [employer] ([facility]) [address] [place] [address] * FLOW CYTOMETRY BONE MARROW (03/15/2024 9:05 AM SCRUFF WORKER) Only the most recent of2 resultswithin the time period is included. Case Report Flow Cytometry ?Case: [id number] ? Authorizing Provider: ??Rodo Perez, ?? Collected: ? 03/15/2024 09:05 AM ? MD ? Ordering Location: ? [facility] ACUTE ? Received: ?03/15/2024 09:30 AM ? Pathologist: ? Angeles Rosado MD ? Specimen: ?Bone Marrow ? 03/15/2024 2:40 PM [facility] Final Diagnosis Bone marrow, flow cytometric immunophenotypic analysis: - Paucicellular specimen with increased myeloblasts detected (42.4% of events) - See interpretation 03/15/2024 2:40 PM [facility] Flow Cytometry Interpretation [...] flow cytometry specimen has been reviewed for dairy quality assurance officer purposes. Correlation with the concurrent bone marrow biopsy ([id number]) is required. 03/15/2024 2:40 PM [facility] Flow Cytometry Results Differential Result Comment Flow Cell Count /uL 980 Total Viability % 92.0 Lymphocytes % 13 Dim CD45 Region % 55 Monocytes % 2 Granulocytes % 28 03/15/2024 2:40 PM [facility] Reason for test MDS (myelodysplastic syndrome) (HCC) 238.75 03/15/2024 2:40 PM [facility] Client Specimen ID # [id number] 03/15/2024 2:40 PM [facility] Number of markers 24 were performed. A-2 Flow CD10 A-3 Flow CD13 A-5 Flow CD20 A-11 Flow CD2 A-13 Flow CD14 A-16 Flow CD117 A-17 Flow CD11b A-18 Flow CD11c A-1 Flow CD5 A-4 Flow CD19 A-6 Flow CD33 A-7 Flow CD34 A-8 Flow CD45 A-12 Flow CD7 A-14 Flow CD56 A-15 Flow CD64 A-23 cyCD22 A-24 lrRI67u A-9 Diamondhead+CD19+ A-10 Lambda+CD19+ A-19 Flow HLA-DR A-20 Flow MPO A-21 Flow TdT A-22 cyCD3 03/15/2024 2:40 PM [facility] Pathologist Location at [facility] 03/15/2024 2:40 PM [facility] Disclaimer Test performed at [facility], [address] [place] [address], [id number]. *The established laboratory minimum viability is 70%. [...] high complexity clinical testing. 03/15/2024 2:40 PM [facility] Embedded Images 2:40 PM [facility] Pathology/Cytolo gy BONE MARROW SPECIMEN / Unknown Collection / Unknown 03/15/2024 9:05 AM SCRUFF WORKER 03/15/2024 9:30 AM SCRUFF WORKER Rodo Perez MD LAB - PATHOLOG Y/CYTOLOGY ORDERABLES [facility] [address] [facility] [place] [address], [facility] [phone] * BONE MARROW BIOPSY (STL) (03/15/2024 9:05 AM SCRUFF WORKER) Only the most recent of2 resultswithin the time period is included. Case Report Bone Marrow Patholog y Report ?Case: [id number] ? Authorizing Provider: ??Rodo Perez, ?? Collected: ? 03/15/2024 09:05 AM ? MD ? Ordering Location: ? [facility] AC[facility] ? Received: ?03/15/2024 09:30 AM ? Pathologist: ? Guillermo Brown MD ? Specimens: ?? A) - Bone Marrow Clot ? B) - Bone Marrow Core ? C) - Bone Marrow Aspirate ? D) - Blood Peripheral ? 03/18/2024 4:01 PM [facility] Final Diagnosis Bone marrow, aspirate, clot section, and core biopsy: - Acute myeloid leukemia. - See description. Peripheral blood smear: - Pancytopenia. - See description. 03/18/2024 4:01 PM [facility] Comment Immunohistochemistry performed [...] for a definitive subclassification. 03/18/2024 4:01 PM [facility] Peripheral Smear Description RBC: normocytic anemia. WBC: leukopenia with absolute neutropenia and lymphopenia. No circulating blasts seen. Platelets: decreased in number. 03/18/2024 4:01 PM [facility] Bone Marrow Aspirate [...] stain): no ring sideroblasts. 03/18/2024 4:01 PM [facility] Bone Marrow Core [...] morphology: peripheral blood only. 03/18/2024 4:01 PM [facility] Flow Cytometry Summary Bone marrow, flow cytometric immunophenotypic analysis ([id number]): - Paucicellular specimen with increased myeloblasts detected (42.4% of events) 03/18/2024 4:01 PM [facility] Clinical History New AML. 03/18/2024 4:01 PM [facility] Gross Description The [...] in cassette B1. DF 03/18/2024 4:01 PM [facility] Pathologist Location at [facility] 03/18/2024 4:01 PM [facility] Disclaimer The performance characteristics of all immunohistochemical and indirect immunofluorescence stains (if any) cited in this report were determined by the Histopathology Laboratory of [facility]. Some of these tests were [...] the attending (teaching) pathologist. 03/18/2024 4:01 PM SCRUFF WORKER [facility] Embedded Images 03/18/2024 4:01 PM SCRUFF WORKER [facility] Pathology/Cytology PERIPHERAL BLOOD / Unknown Collection / Unknown 03/15/2024 9:05 AM SCRUFF WORKER 03/15/2024 9:30 AM SCRUFF WORKER Miscellaneous samples (specimen) BONE MARROW SPECIMEN / Unknown 03/15/2024 9:05 AM SCRUFF WORKER 03/15/2024 9:30 AM SCRUFF WORKER Miscellaneous samples (specimen) SPECIMEN FROM BONE MARROW OBTAINED BY ASPIRATION / Unknown 03/15/2024 9:05 AM SCRUFF WORKER 03/15/2024 9:30 AM SCRUFF WORKER Miscellaneous samples (specimen) PERIPHERAL BLOOD / Unknown 03/15/2024 9:05 AM SCRUFF WORKER 03/15/2024 11:39 AM SCRUFF WORKER Rodo Perez MD LAB - PATHOLOG Y/CYTOLOGY ORDERABLES Performing Organization Address City/State/[facility] Co de Phone Number [facility] [address] [phone] * MYELOID MALIGNANCIES MUTATION PNL (03/15/2024 9:05 AM SCRUFF WORKER) Only the most recent of2 resultswithin the time period is included. Interpretation Myeloid Malignancy PNL See Note 03/28/2024 2:06 PM SCRUFF WORKER [employer] ([facility]) Comment: Myeloid Malignancies Mutation Panel NGS Submitted diagnosis or diagnosis under consideration for variant interpretation: Myelodysplastic syndrome, unspecified Note: Prior NGS testing performed on this patient (most recent [employer] accession [id number]) was reviewed in conjunction with the current case to compare molecular variants reported. The previously reported molecular variants DNMT3A, IDH1, and CUX1 are again detected in the current study. In addition, new molecular variants in STAG2, BCOR, JAK2, and CEBPA are now detected. TIER 1: Variants of Known Clinical Significance in Hematologic Malignancies 1. IDH1 c.394C>A, p.Ijg609Iyo ([id number]) VAF: 38.4% IDH1 encodes an enzyme that catalyzes the conversion of isocitrate to alpha-ketoglutarate in the citric acid cycle (23). Somatic mutations of IDH1 are found in 4-12% of patients with myelodysplastic syndrome (MDS).This mutation has been reported in hematologic malignancies (4). The prognostic significance of mutated IDH1 in MDS is uncertain (20) (27) (7) (14) (19) (32). 2. DNMT3A c.2206C>T, p.Ays345Sgm ([id number]) VAF: 42.2% DNMT3A encodes a DNA [...] stem cell transplantation (2). 3. DNMT3A c.2407A>G, p.Lgd336Kmy ([id number]) VAF: 38.8% This mutation has also been reported in hematologic malignancies (4). 4. JAK2 c.1849G>T, p.Svg307Ein ([id number]) VAF: 14.4% JAK2 encodes a non-receptor protein tyrosine kinase that regulates STAT ear specialist factors in response to cytokine receptor signaling (13). JAK2 mutations have been reported in 3-6% of patients with MDS (6) (15) (31). This JAK2 mutation (p.Mtc720Vid) has also been reported in approximately 10-25% of patients with myelodysplastic/myeloproliferative neoplasms (MDS/MPN) (31) (21). This particular JAK2 mutation occurs in the pseudokinase (JH2) domain and leads to activation of the NOLAN-STAT pathway signaling. The prognostic significance of JAK2 mutations in MDS is unclear (6). 5. STAG2 c.1840C>T, p.Lpj364* ([id number]) VAF: 31.7% STAG2 encodes a subunit [...] unmutated cohesin genes (29). 6. BCOR c.3649C>T, p.Mwb0399* ([id number]) VAF: 9.6% BCOR encodes a transcriptional corepressor that interacts with BCL-6 and histone deacetylases (HDACs) (5) (12). Mutations in BCOR are seen in 4% of patients with MDS (5) (11). BCOR mutations in MDS are often frameshift and nonsense mutations that result in spbq-xe-wrphhvre (5) (11). This mutation is predicted to alter the normal function of BCOR. BCOR mutations are associated with a higher incidence of AML transformation in MDS patients and shorter overall survival in MDS patients (5) (11) (16). 7. BCOR c.635_638del, p.Uxw991Beafn*3 ([id number]) VAF: 6.2% This mutation is also predicted to alter the normal function of BCOR. TIER 2: Variants of Unknown Clinical Significance in Hematologic Malignancies 1. CEBPA c.1074_*9del, p.*359Cysext*58 (NM_[id number]) VAF: 4.7% CEBPA encodes a protein that is a member of the basic region leucine zipper family of ear specialist factors (18). Somatic mutations of CEBPA are [...] if any, is uncertain. 2. CUX1 c.3085G>A, p.Ufp9174Mck (NM_[id number]) VAF: 44.8% This variant has been rarely reported in hematologic malignancies (1) (10), to the best of our knowledge. References 1: Lynnette P, ??Emmanuelle B, ??Zhanna CLARK et al, Assessment of Minimal Residual Disease by Next Generation Sequencing in Peripheral Blood as a Complementary Tool for Personalized Transplant Monitoring in Myeloid Neoplasms. J Clin Med 2020. PMID:[id number] 2: Virginie R, ??Juan HERNANDEZ, ??Ulises Kim et al, Somatic mutations predict poor outcome in patients with myelodysplastic syndrome after hematopoietic stem-cell transplantation. J Clin Oncol 2014. PMID:[id number] 3: cBioPortal: [email or web address]/ 4: COSMIC: [email or web address]://cancer.vipin.ac.uk/cosmic 5: Braulio F, ??Yu V, ??Camilla Y et al, BCOR and BCORL1 mutations in myelodysplastic syndromes and related disorders. Blood 2013. PMID:[id number] 6: Bill M, ??Jennifer C, ??Víctor L et al, JAK2 Mutations Are Rare and Diverse in Myelodysplastic Syndromes: Case Series and Review of the Literature. Hematol Rep 2022. PMID:[id number] 7: Jahaira CD, ??Kamla E, ??Mary F et al, IDH1 and IDH2 mutations in myelodysplastic syndromes and role in disease progression. Leukemia 2016. PMID:[id number] 8: Fried I, ??Day C, ??Lenin MURPHY et al, Frequency, onset and clinical impact of somatic DNMT3A mutations in therapy-related and secondary acute myeloid leukemia. Haematologica 2012. PMID:[id number] 9: Nuha O, ??Idania D, ??Luanne Payne et al, CEBPA polymorphisms and mutations in patients with acute myeloid leukemia, myelodysplastic syndrome, multiple myeloma and non-Hodgkin's lymphoma. Blood Cells Mol Dis 2008. PMID:[id number] 10: Cassandra Kim, ??Cornell Payne, ??Alexis Valdivia et al, DNA methylation epitypes highlight underlying developmental and disease pathways in acute myeloid leukemia. Genome Res 2020. PMID:[id number] 11: Ivan V, ??Jenna E, ??Alondra DEMPSEY et al, Whole-exome sequencing identifies somatic mutations of BCOR in acute myeloid leukemia with normal karyotype. Blood 2011. PMID:[id number] 12: Lin KD, ??Yashira W, ??Darcie Paz al, BCoR, a novel corepressor involved in BCL-6 repression. Genes Dev 2000. PMID:[id number] 13: Fabian SS, ??Jen SJ, ??Amandeep LR et al, Nolan/STAT pathways in cytokine signaling and myeloproliferative disorders: approaches for targeted therapies. Genes Cancer 2010. PMID:[id number] 14: Jose J O, ??Charity V, ??Grayson Stroud et al, Mutations of IDH1 and IDH2 genes in early and accelerated phases of myelodysplastic syndromes and MDS/myeloproliferative neoplasms. Leukemia 2010. PMID:[id number] 15: Malaika M, ??Catherine C, ??Ahsan Talavera et al, Molecular analysis of myelodysplastic syndrome with isolated deletion of the long arm of chromosome 5 reveals a specific spectrum of molecular mutations with prognostic impact: a study on 123 patients and 27 genes. Haematologica 2017. PMID:[id number] 16: Gregoria BAR, ??Meliton T, ??Valerie M et al, Spectrum and prognostic relevance of sweeper driver gene mutations in acute myeloid leukemia. Blood 2016. PMID:[id number] 17: Nicol Tong, ??Mel MEANS, ??Milton Doss et al, Dominant-negative mutations of CEBPA, encoding CCAAT/enhancer binding protein-alpha (C/EBPalpha), in acute myeloid leukemia. Yusra Emely 2001. PMID:[id number] 18: Mel Hughes, Complexity of CEBPA dysregulation in human acute myeloid leukemia. Clin Cancer Res 2009. PMID:[id number] 19: Papaemmanuil E, ??Gerstung M, ??Hugh L et al, Clinical and biological implications of sweeper driver mutations in myelodysplastic syndromes. Blood 2013. PMID:[id number] 20: Eileen MURPHY, ??Rajinder CHRISTY, ??Juju OTERO et al, Differential prognostic effect of IDH1 versus IDH2 mutations in myelodysplastic syndromes: a [facility] study of 277 patients. Leukemia 2012. PMID:[id number] 21: Eileen MURPHY, George TL, Genomics of myelodysplastic syndrome/myeloproliferative neoplasm overlap syndromes. Hematology Am Soc Hematol Educ Program 2020. PMID:[id number] 22: Preudhomme C, ??Sagot C, ??Heather N et al, Favorable prognostic significance of CEBPA mutations in patients with de elinor acute myeloid leukemia: a study from the Acute Leukemia [employer] (JOSE). Blood 2002. PMID:[id number] 23: Bulmaro BENTNO, Josse H, Isocitrate dehydrogenase 1 and 2 mutations in cancer: alterations at a crossroads of cellular metabolism. J Natl Cancer Inst 2010. PMID:[id number] 24: Jose A, ??Ivan V, ??Yudi U et al, [place] analysis of DNMT3A mutations in hematological malignancies. Leukemia 2013. PMID:[id number] 25: Kim , ??Lisa-Hussein O, ??Arnulfo REINOSO et al, The role of mutations in epigenetic regulators in myeloid malignancies. Yusra Rev Cancer 2012. PMID:[id number] 26: Taube F, ??Hubert ISSA, ??Efrem Payne et al, CEBPA mutations in 4708 patients with acute myeloid leukemia: differential impact of bZIP and TAD mutations on outcome. Blood 2021. PMID:[id number] 27: Thol F, ??Weissinger EM, ??Sam J et al, IDH1 mutations in patients with myelodysplastic syndromes are associated with an unfavorable prognosis. Haematologica 2010. PMID:[id number] 28: Thol F, ??Lisa C, ??Bro Valdivia et al, Rare occurrence of DNMT3A mutations in myelodysplastic syndromes. Haematologica 2011. PMID:[id number] 29: Josey S, ??Liam AD, ??Makishima H et al, Genetic alterations of the cohesin complex genes in myeloid malignancies. Blood 2014. 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 Leukemia 2011. PMID:[id number] 31: Juan Diego Khoury, Comparison and Implications of Mutational Profiles of Myelodysplastic Syndromes, Myeloproliferative Neoplasms, and Myelodysplastic/Myeloproliferative Neoplasms: A Bynum-Analysis. Front Oncol 2020. PMID:[id number] 32: Cornell Flower, ??Cornell F, ??Yuval Flower et al, IDH1 Mutation Is an Independent Inferior Prognostic Indicator for Patients with Myelodysplastic Syndromes. Acta Haematol 2017. PMID:[id number] 33: Packer L, Gabriella R, Hieu ALBERTS, DNMT3A in haematological malignancies. Yusra Rev Cancer 2015. PMID:[id number] This result has been reviewed and approved by Jannette Dutta M.D. Low coverage regions: Listed below are regions where the average sequencing depth (number of times a particular nucleotide is sequenced) in at least 20% of the mwilut-qi-cbylbeow is less than our stringent cutoff of [...] NOTCH1; NPM1*; NRAS; NSD1; PHF6; PIGA; PPM1D; LKPB89Q; PRPF8; PTPN11; RAD21; RUNX1; SAMD9; SAMD9L; SETBP1; [...] developed and its performance characteristics determined by [facility]. It has not been cleared or approved by the U.S. Food and Drug Administration. This test was performed in a CLIA-certified laboratory and is intended for clinical purposes. Myeloid Malignancy Dx Mds Unspec 03/28/2024 2:06 PM [facility] [employer] ([facility]) Myeloid Malignancy Panel Specimen Bone Marrow 03/28/2024 2:06 PM SCRUFF WORKER [employer]) EER Myeloid Malignancy See Note 03/28/2024 2:06 PM SCRUFF WORKER [employer] [facility]) Comment: Authorized individuals can access the [employer] Enhanced Report using the following link: [email or web address] Performed By: [facility] [address] [place] [address] Dough Catcher: Uche Morley MD, PhD CLIA Number: [id number] Other BONE MARROW SPECIMEN / Unknown Collection / Unknown 03/15/2024 9:05 AM SCRUFF WORKER 03/15/2024 9:30 AM SCRUFF WORKER Rodo Perez MD LAB - PATHOLOG Y/CYTOLOGY ORDERABLES Performing Organization Address City/[facility]/ZIP Co de Phone Number [facility] [employer] [facility]) [address] * LAB MISC TEST (NOT BLOOD) (03/15/2024 9:05 AM SCRUFF WORKER) Only the most recent of3 resultswithin the time period is included. Test Name Tp53 03/21/2024 12:06 PM SCRUFF WORKER [facility] REF LAB NON INTERF Test Result See Scanned Report 03/21/2024 12:06 PM SCRUFF WORKER [facility] REF LAB NON INTERF Comment Ref Lab 03/21/2024 12:06 PM SCRUFF WORKER [facility] REF LAB NON INTERF Other BONE MARROW SPECIMEN / Unknown Collection / Unknown 03/15/2024 9:05 AM SCRUFF WORKER 03/15/2024 9:30 AM SCRUFF WORKER Rodo Perez MD LAB - BODY FLU ID ORDERABLES Performing Organization Address [facility]/ZIP Co de Phone Number [facility] REF LAB NON INTERF [address] [place] [address], [facility] [phone] * FISH PML/DANTE PANEL (03/15/2024 9:05 AM SCRUFF WORKER) Only the most recent of2 resultswithin the time period is included. [facility] EER PML/DANTE Translocation by Fish See Note 03/17/2024 4:41 PM SCRUFF WORKER [employer] ([facility]) Comment: Authorized individuals can access the [employer] Enhanced Report using the following link: [email or web address] Performed By: [facility] [address] [id number] Dough Catcher: Uche Morley MD, PhD CLIA Number: [id number] PML/DANTE Translocation by FISH See Note 03/17/2024 4:41 PM SCRUFF WORKER [employer] ([facility]) Comment: Test Performed: PML-DANTE Translocation by FISH (FISH PML) Specimen Type: Bone Marrow Indication for Testing: MDS RESULT Normal FISH Result t(15;17) PML::DANTE ??Fusion: ??not detected INTERPRETATION There was no evidence of PML::DANTE fusion due to translocation (15;17)(q24;q21). This analysis was performed with the PML/DANTE probes ([employer]). A total of 200 cells were scored. Cytogenomic Nomenclature (ISCN): nuc nereyda(PML,DANTE)x2[200' This result has been reviewed and approved by Nabila Gonzalez, PhD, [facility] A portion of this analysis was performed at the following location(s): [facility] Site -[place]#2 INTERPRETIVE INFORMATION: PML/DANTE Translocation by FISH This test was developed and its performance characteristics determined by [facility]. It has not been cleared or approved by the US Food and Drug Administration. This test was performed in a CLIA certified laboratory and is intended for clinical purposes. Other BONE MARROW SPECIMEN / Unknown Collection / Unknown 03/15/2024 9:05 AM SCRUFF WORKER 03/15/2024 9:30 AM SCRUFF WORKER Rodo Perez MD LAB - PATHOLOG Y/CYTOLOGY ORDERABLES [employer] ([facility]) [address] [place] [address], [facility] * CHROMOSOME ANALYSIS BONE MARROW PANEL (03/15/2024 9:05 AM SCRUFF WORKER) Chromosome Analysis Bone Marrow See Note Normal 03/22/2024 11:01 AM SCRUFF WORKER [employer] ([facility]) Comment: Test Performed: Chromosome Analysis [...] study. NOTE: Concurrent FISH PML performed under [facility] accession [id number] was NORMAL. FISHAML and FISH MDS P are PENDING and will be reported under [facility] accessions [id number] and [id number]. This result has been reviewed and approved by Randall Yun, PhD, [facility] A portion of this analysis was performed at the following location(s): [facility] Site -[place]#2 [facility] -[place]#3 [facility]-[place]#4 [facility] -[place]#1 INTERPRETIVE INFORMATION: Chromosome Analysis, Bone Marrow This test was developed and its performance characteristics determined by [facility]. It has not been cleared or approved by the US Food and Drug Administration. This test was performed in a CLIA certified laboratory and is intended for clinical purposes. EER Chromosome Analysis Bone Marrow See Note 03/22/2024 11:01 AM [facility] [employer] ([facility]) Comment: Authorized individuals can access the [employer] Enhanced Report using the following link: [email or web address] Performed By: [facility] [address] [place] [address] Dough Catcher: Uche Morley MD, PhD CLIA Number: [id number] Bone marrow BONE MARROW SPECIMEN / Unknown 03/15/2024 9:05 AM SCRUFF WORKER 03/15/2024 9:30 AM SCRUFF WORKER Rodo Perez MD LAB - PATHOLOG Y/CYTOLOGY ORDERABLES [facility] ([facility]) [address] [place] [address], [facility] * FLOW CYTOMETRY BLOOD PROFILE (03/14/2024 10:32 AM SCRUFF WORKER) Case Report Flow Cytometry ?Case: [id number] ? Authorizing Provider: ??Ghanshyam Dewey PA-C ? Collected: ? 03/14/2024 10:32 AM ? Ordering Location: ? [facility] ? Received: ?03/14/2024 01:49 PM ? Pathologist: ? Angeles Rosado MD ? Specimen: ?Blood ? 03/14/2024 4:58 PM SCRUFF WORKER U PATHOLOGY LAB Final Diagnosis Peripheral blood, flow cytometric immunophenotypic analysis: - 1.2% myeloblasts detected - No evidence of a monoclonal B-cell population - See interpretation 03/14/2024 4:58 PM [facility] PATHOLOGY LAB Flow Cytometry Results Differential Result Comment WBC Count /uL 1,200 Total Viability % 100.0 Lymphocytes % 80 Dim CD45 Region % 4 Monocytes % 4 Granulocytes % 13 03/14/2024 4:58 PM [facility] PATHOLOGY LAB Flow Cytometry Interpretation Viability: 100% B-cells: polytypic, kappa:lambda ratio 1.1:1. Blasts: 1.2% of events are myeloblasts. Monocytes are mature. A peripheral blood smear prepared from the flow cytometry specimen has been reviewed for dairy quality assurance officer purposes. 03/14/2024 4:58 PM [facility] PATHOLOGY LAB Reason for test MDS (myelodysplastic syndrome) (HCC) 238.75 03/14/2024 4:58 PM [facility] PATHOLOGY LAB Client Specimen ID # [id number] 03/14/2024 4:58 PM [facility] PATHOLOGY LAB Pathologist Location at [facility] 03/14/2024 4:58 PM [facility] PATHOLOGY LAB Disclaimer Test performed at [facility], [address] [place] [address], [address]. *The established laboratory minimum viability is 70%. [...] high complexity clinical testing. 03/14/2024 4:58 PM [facility] PATHOLOGY LAB Embedded Images 4:58 PM [facility] PATHOLOGY LAB Number of markers 19 were performed. A-2 Flow CD10 A-3 Flow CD13 A-5 Flow CD20 A-11 Flow CD2 A-13 Flow CD14 A-16 Flow CD117 A-17 Flow CD11b A-18 Flow CD11c A-1 Flow CD5 A-4 Flow CD19 A-6 Flow CD33 A-7 Flow CD34 A-8 Flow CD45 A-12 Flow CD7 A-14 Flow CD56 A-15 Flow CD64 A-9 Diamondhead+CD19+ A-10 Lambda+CD19+ A-19 Flow HLA-DR 03/14/2024 4:58 PM SCRUFF WORKER [facility] PATHOLOGY LAB Blood BLOOD SPECIMEN / Unknown Lab Venipuncture / Unknown 03/14/2024 10:32 AM SCRUFF WORKER 03/14/2024 1:49 PM SCRUFF WORKER Ghanshyam Dewey PA-C LAB - PATHOLOGY/CYTO LOGY ORDERABLES [facility] PATHOLOGY LAB [address] [phone] * CYTOMEGALOVIRUS (CMV) QUANTITATIVE PLASMA (03/13/2024 11:26 PM SCRUFF WORKER) CMV Quant by PCR, Interp Not detected Not detected 03/14/2024 9:00 AM SCRUFF WORKER [facility] MICROBIOLOGY Blood BLOOD SPECIMEN / Unknown Venipuncture / Unknown 03/13/2024 11:26 PM SCRUFF WORKER 03/13/2024 11:37 PM SCRUFF WORKER Narrative [facility] MICROBIOLOGY - 03/14/2024 9:00 AM SCRUFF WORKER The Cytomegalovirus (CMV) DNA analysis utilized a [...] specimens.. The analysis was performed using a [place]. FDA approved test methodology Bruce sharon CMV. Ted Soler MD LAB - CHEMISTRY OR DERABLES [facility] MICROBIOLOGY [address] [place] [address], [facility] [phone] * QUINN-TOVAR VIRUS QUANT BLOOD STL (03/13/2024 11:26 PM SCRUFF WORKER) Pathologist [facility] EBV Quant by PCR, Interp Not detected Not detected 03/14/2024 8:56 AM SCRUFF WORKER [facility] MICROBIOLOGY Specimen Type Plasma 03/14/2024 8:56 AM SCRUFF WORKER [facility]CRO[facility] Blood BLOOD SPECIMEN / Unknown Venipuncture / Unknown 03/13/2024 11:26 PM SCRUFF WORKER 03/13/2024 11:37 PM SCRUFF WORKER Narrative [facility] MICROBIOLOGY - 03/14/2024 8:56 AM SCRUFF WORKER The Quinn-Tovar viral (EBV) DNA analysis utilized [...] Soler MD LAB - CHEMISTRY OR DERABLES [facility] MICROBIOLOG[facility] [address] [place] [address], [facility] [phone] * D-DIMER (03/13/2024 11:26 PM SCRUFF WORKER) [facility] D-Dimer Quantitative <0.27 <=0.50 mcg/mL FEU 03/14/2024 12:00 AM [facility] Comment: In the absence [...] Unknown Venipuncture / Unknown 03/13/2024 11:26 PM SCRUFF WORKER 03/13/2024 11:37 PM SCRUFF WORKER Ted Soler MD LAB - COAGULATION ORDERABLES [facility] [address] [place] [address], [facility] [phone] * FIBRINOGEN ACTIVITY (03/13/2024 11:26 PM SCRUFF WORKER) Fibrinogen Clauss 362 200 - 400 mg/dL 03/13/2024 11:59 PM SCRUFF WORKER [facility] Blood BLOOD SPECIMEN / Unknown Venipuncture / Unknown 03/13/2024 11:26 PM SCRUFF WORKER 03/13/2024 11:37 PM SCRUFF WORKER Tde Soler MD LAB - COAGULATION ORDERABLES [facility]ORATORY [address] [address], [facility] [phone] * FISH AML+MDS PANEL BLOOD OR BONE MARROW (03/04/2024 4:13 PM SCRUFF WORKER) FISH AML with MDS, Therapy-Rltd AML See Note Normal 03/19/2024 4:32 PM SCRUFF WORKER [employer] ([facility]) Comment: Test Performed: Acute Myelogenous Leukemia (AML) [...] with the Therapy-Related AML panel probes D5S23/EGR1, D7Z1/B4M956, and MLL (KMT2A) ([employer]). A total of 200 cells were scored for each probe. Cytogenomic Nomenclature (ISCN): nuc nereyda(D5S23,EGR1,D7Z1,W4M107,KMT2A)x2[200' This result has been reviewed and approved by Charles Pablo MD, [facility] INTERPRETIVE INFORMATION: AML with MDS, Therapy-Related AML, FISH This test was developed and its performance characteristics determined by [facility]. It has not been cleared or approved by the US Food and Drug Administration. This test was performed in a CLIA certified laboratory and is intended for clinical purposes. EER AML with MDS, Therapy-Rltd AML FISH See Note 03/19/2024 4:32 PM SCRUFF WORKER [employer] ([facility]) Comment: Authorized individuals can access the [employer] Enhanced Report using the following link: [email or web address] Performed By: [facility] [address] [place] [address] Dough Catcher: Uche Morley MD, PhD CLIA Number: [id number] Other BLOOD SPECIMEN / Unknown Collection / Unknown 03/04/2024 4:13 PM SCRUFF WORKER 03/04/2024 4:23 PM SCRUFF WORKER Cindy Garcia MD LAB - PATHOLOGY/CYTO LOGY ORDERABLES [facility]) [address] [place] [address], [facility] * CHROMOSOME ANALYSIS LEUKEMIA BLD (03/04/2024 4:13 PM SCRUFF WORKER) Chromosome Analysis Leukemic Blood See Note Normal 03/23/2024 12:39 PM SCRUFF WORKER [employer] ([facility]) Comment: Test Performed: Chromosome Analysis [...] FISH AML/PML and TAML MDS performed under [facility] accessions [id number] and [id number] were NORMAL. This result has been reviewed and approved by Margaret Roberson, PhD, [facility] INTERPRETIVE INFORMATION: Chromosome Analysis, ?Leukemic Blood This test was developed and its performance characteristics determined by [facility]. It has not been cleared or approved by the US Food and Drug Administration. This test was performed in a CLIA certified laboratory and is intended for clinical purposes. EER Chromosome Analysis Leukemic See Note 03/23/2024 12:39 PM SCRUFF WORKER [employer] ([facility]) Comment: Authorized individuals can access the [employer] Enhanced Report using the following link: [email or web address] Performed By: [facility] [address] [place] [address] Dough Catcher: Uche Morley MD, PhD CLIA Number: [id number] Blood BLOOD SPECIMEN / Unknown Lab Venipuncture / Unknown 03/04/2024 4:13 PM SCRUFF WORKER 03/22/2024 5:28 PM SCRUFF WORKER Cindy Garcia MD LAB - PATHOLOGY/CYTO LOGY ORDERABLES [employer] ([facility]) [address] [place] [address], [facility] * HIV-1 HIV-2 ANTIBODY + HIV P24 AG PANEL (New on 08/24) (03/04/2024 4:13 PM SCRUFF WORKER) HIV Antigen/Antibod y 1 & 2 Non-reacti ve Non-react carlos 03/04/2024 5:12 PM SCRUFF WORKER [facility] Comment:No Laboratory eviden ce of HIV infection. Blood BLOOD SPECIMEN / Unknown Lab Venipuncture / Unknown 03/04/2024 4:13 PM SCRUFF WORKER 03/04/2024 4:23 PM SCRUFF WORKER Cindy Garcia MD LAB - CHEMISTRY CHELI MONREAL [facility] [address] [place] [address], [facility] [phone] * BCR-ABL1 CML+AML PCR QUANT PNL (03/04/2024 4:13 PM SCRUFF WORKER) [facility] Interpretation TNP 03/13/2024 5:08 PM SCRUFF WORKER [facility] ([facility]) Comment: Unable to obtain results. Repeated efforts to analyze this specimen have been unsuccessful. LOW CONTROL GENE COPY NUMBER INDICATED SPECIMEN DEGRADATION. Director Review Comment 5:08 PM SCRUFF WORKER [facility] ([facility]) Comment: Dawood Sarabia, PhD, [facility] ?Director, Molecular Oncology ?[facility] ?[place] [address] ? Background Comment 03/13/2024 5:08 PM SCRUFF WORKER [facility] ([facility]) Comment: This assay can detect three different [...] as indicated. Methodology Comment 03/13/2024 5:08 PM SCRUFF WORKER [facility] ([facility]) Comment: Total RNA is isolated from the [...] developed and its performance characteristics determined by [facility]. It has not been cleared or approved by the Food and Drug Administration. Blood BLOOD SPECIMEN / Unknown Lab Venipuncture / Unknown 03/04/2024 4:13 PM SCRUFF WORKER 03/04/2024 4:24 PM SCRUFF WORKER Narrative [facility] ([facility]) - 03/13/2024 5:08 PM SCRUFF WORKER Performed at: ??01 - [facility] [address] [place], [place] ??[id number] Elevator Mechanic: Cinthya Roper [facility], Phone: ??[phone] Performed at: ??02 - [facility] [place], [place] ??[id number] Elevator Mechanic: Cinthya Roper [facility], Phone: ??[phone] Cindy Garcia MD LAB - CHEMISTRY CHELI MONREAL Performing Organization Address City/[facility]/ZIP Co de Phone Number [facility]) [address] [id number] * TSH REFLEX FREE T4 (03/04/2024 4:13 PM SCRUFF WORKER) [facility] TSH 0.961 0.350 - 4.940 uIU/mL 03/04/2024 5:29 PM SCRUFF WORKER [facility] Blood BLOOD SPECIMEN / Unknown Lab Venipuncture / Unknown 03/04/2024 4:13 PM SCRUFF WORKER 03/04/2024 4:27 PM SCRUFF WORKER Cindy Garcia MD LAB - CHEMISTRY CHELI MONREAL [facility] [address] [place] [address], [facility] [phone] * RHEUMATOID FACTOR BLOOD QUANTITATIVE (03/04/2024 4:13 PM SCRUFF WORKER) [facility] Rheumatoid Factor <15 <30 IU/mL 03/04/2024 4:57 PM SCRUFF WORKER [facility] Rheumatoid Factor Screen Negative Negative 03/04/2024 4:57 PM SCRUFF WORKER [facility] Blood BLOOD SPECIMEN / Unknown Lab Venipuncture / Unknown 03/04/2024 4:13 PM SCRUFF WORKER 03/04/2024 4:23 PM SCRUFF WORKER Cindy Garcia MD LAB - CHEMISTRY CHELI MONREAL [address] [address], [facility] [phone] * CYTOMEGALOVIRUS ANTIBODY IGG BLOOD (03/04/2024 4:13 PM SCRUFF WORKER) [facility] Cytomegalovirus Antibody IgG <0.20 <=0.70 U/mL 03/05/2024 9:27 PM SCRUFF WORKER [facility] [employer] ([facility]) Comment: INTERPRETIVE INFORMATION: Cytomegalovirus Antibody, IgG ??0.59 [...] laboratory at the same time. Performed By: [facility] [address] [place] [address] Dough Catcher: Uche Morley MD, PhD CLIA Number: [id number] Blood BLOOD SPECIMEN / Unknown Lab Venipuncture / Unknown 03/04/2024 4:13 PM SCRUFF WORKER 03/04/2024 4:23 PM SCRUFF WORKER Cindy Garcia MD LAB - CHEMISTRY CHELI MONREAL [facility]) [address] [place], [place] [address] * C-REACTIVE PROTEIN (03/04/2024 4:13 PM SCRUFF WORKER) [facility] C-Reactive Protein 0.5 <=0.5 mg/dL 03/04/2024 4:56 PM SCRUFF WORKER [facility] Blood BLOOD SPECIMEN / Unknown Lab Venipuncture / Unknown 03/04/2024 4:13 PM SCRUFF WORKER 03/04/2024 4:27 PM SCRUFF WORKER Cindy Garcia MD LAB - CHEMISTRY CHELI MONREAL Performing Organization Address City/[facility]/ZIP Co de Phone Number [address] [address], [facility] [phone] * MARLINE BLOOD SCREEN W/REFLEX TITER (03/04/2024 4:13 PM SCRUFF WORKER) Pathologist [facility] MARLINE IgG None Detected None Detected 03/05/2024 11:42 PM SCRUFF WORKER [facility] ([facility]) Comment: If suspicion of connective tissue disease is strong and MARLINE EIA is negative, consider testing for MARLINE by IFA ([id number]). INTERPRETIVE INFORMATION: Anti-Nuclear Antibodies (MARLINE), IgG by TOÑA Antinuclear Antibodies (MARLINE), IgG by TOÑA: MARLINE specimens are screened using enzyme-linked immunosorbent assay (TOÑA) methodology. All TOÑA results reported as Detected are further tested by indirect fluorescent assay (IFA) using HEp-2 substrate with an IgG-specific conjugate. The MARLINE TOÑA screen is designed to detect antibodies against dsDNA, histones, SS-A (Ro), SS-B (La), Pimentel, Pimentel/AIRLINE PILOT/FIRST OFFICER, Scl-70, Mey-1, centromeric proteins, other antigens extracted from the HEp-2 cell nucleus. MARLINE TOÑA assays have been reported to have lower sensitivities than MARLINE IFA for systemic autoimmune rheumatic diseases (SARD). Negative results do not necessarily rule out SARD. Performed By: [facility] [address] [place] [address] Dough Catcher: Uche Morley MD, PhD CLIA Number: [id number] Blood BLOOD SPECIMEN / Unknown Lab Venipuncture / Unknown 03/04/2024 4:13 PM SCRUFF WORKER 03/04/2024 4:23 PM SCRUFF WORKER Cindy Garcia MD LAB - CHEMISTRY CHELI MONREAL [facility] [employer] [facility]) [address] [place] [address], [facility] * ZINC BLOOD (03/04/2024 4:13 PM SCRUFF WORKER) Zinc 62.4 60.0 - 120.0 ug/dL 03/06/2024 6:35 AM SCRUFF WORKER [facility] ([facility]) Comment: INTERPRETIVE INFORMATION: Zinc, Serum or Plasma [...] developed and its performance characteristics determined by [facility]. It has not been cleared or approved by the [place] Food and Drug Administration. This test was performed in a CLIA certified laboratory and is intended for clinical purposes. Performed By: [facility] [address] [place] [address] Dough Catcher: Uche Morley MD, PhD CLIA Number: [id number] Blood BLOOD SPECIMEN / Unknown Lab Venipuncture / Unknown 03/04/2024 4:13 PM SCRUFF WORKER 03/04/2024 4:23 PM SCRUFF WORKER Cindy Garcia MD LAB - CHEMISTRY CHELI MONREAL Performing Organization Address [facility] Co de Phone Number [facility] [employer] [facility]) [address] * COPPER BLOOD (03/04/2024 4:13 PM SCRUFF WORKER) Copper 108.5 70.0 - 140.0 ug/dL 03/06/2024 6:35 AM SCRUFF WORKER [facility] ([facility]) Comment: INTERPRETIVE INFORMATION: Copper, Serum or Plasma [...] developed and its performance characteristics determined by [employer]. It has not been cleared or approved by the [place] Food and Drug Administration. This test was performed in a CLIA certified laboratory and is intended for clinical purposes. Performed By: [facility] [address] [place] [address] Dough Catcher: Uche Morley MD, PhD CLIA Number: [id number] Blood BLOOD SPECIMEN / Unknown Lab Venipuncture / Unknown 03/04/2024 4:13 PM SCRUFF WORKER 03/04/2024 4:23 PM SCRUFF WORKER Cindy Garcia MD LAB - CHEMISTRY CHELI MONREAL Performing Organization Address [facility]/ZIP Co de Phone Number [facility] [employer] ([facility]) [address] * ERYTHROCYTE SEDIMENTATION RATE (03/04/2024 4:13 PM SCRUFF WORKER) Erythrocyte Sedimentation Rate Westergren 14 0 - 20 MM/HR 03/04/2024 5:10 PM SCRUFF WORKER [facility] Blood BLOOD SPECIMEN / Unknown Lab Venipuncture / Unknown 03/04/2024 4:13 PM SCRUFF WORKER 03/04/2024 4:27 PM SCRUFF WORKER Cindy Garcia MD LAB - HEMATOLOGY ORD ERABLES Performing Organization Address City/[facility]/ZIP Co de Phone Number [facility] [address] [place] [address], [place] [phone] * HEPATITIS B SURFACE ANTIBODY (03/04/2024 4:13 PM SCRUFF WORKER) Hepatitis B Virus Surface Antibody Non-react carlos Non-react carlos 03/04/2024 5:12 PM SCRUFF WORKER [facility] Comment: < 8 mIU/mL Hepatitis B surface Antibody (HBsAb). Nonreactive for HBsAb - individual is considered not immune to Hepatitis B Virus infection. Hepatitis B Surface Antibody Quantitative 0.3 <8.0 mIU/mL 03/04/2024 5:12 PM SCRUFF WORKER [facility] Comment: Hepatitis B Surface Antibody Numeric Result Interpretation: ? Nonreactive: ?<8.0 mIU/mL ? Indeterminate: ??8.0 - 12.0 mIU/mL ? Reactive: ?>12.0 mIU/mL ? Blood BLOOD SPECIMEN / Unknown Lab Venipuncture / Unknown 03/04/2024 4:13 PM SCRUFF WORKER 03/04/2024 4:23 PM SCRUFF WORKER Cindy Garcia MD LAB - CHEMISTRY CHELI MONREAL [facility] [address] [place] [address], [place] [phone] * HEPATITIS B CORE ANTIBODY TOTAL (03/04/2024 4:13 PM SCRUFF WORKER) HBc Antibody Total Non-reacti ve Non-reacti ve 03/04/2024 5:12 PM SCRUFF WORKER [facility] Blood BLOOD SPECIMEN / Unknown Lab Venipuncture / Unknown 03/04/2024 4:13 PM SCRUFF WORKER 03/04/2024 4:23 PM SCRUFF WORKER Cindy Garcia MD LAB - CHEMISTRY CHELI MONREAL [address] [address], [place] [phone] * FOLATE (03/04/2024 4:13 PM SCRUFF WORKER) Folate 17.7 7.0 - 31.4 ng/mL 03/04/2024 5:29 PM SCRUFF WORKER [facility] Blood BLOOD SPECIMEN / Unknown Lab Venipuncture / Unknown 03/04/2024 4:13 PM SCRUFF WORKER 03/04/2024 4:27 PM SCRUFF WORKER Cindy Garcia MD LAB - CHEMISTRY CHELI MONREAL Performing Organization Address City/[facility]/ZIP Co de Phone Number [address] [address], [place] [phone] * VITAMIN B12 (03/04/2024 4:13 PM SCRUFF WORKER) Pathologist [facility] Vitamin B12 524 213 - 816 pg/mL 03/04/2024 5:29 PM SCRUFF WORKER [facility] Blood BLOOD SPECIMEN / Unknown Lab Venipuncture / Unknown 03/04/2024 4:13 PM SCRUFF WORKER 03/04/2024 4:27 PM SCRUFF WORKER Cindy Garcia MD LAB - CHEMISTRY CHELI MONREAL [address] [address], [place] [phone] * (ABNORMAL) IRON + TRANSFERRIN PANEL [w/Transferrin Sat % + TIBC] (03/04/2024 4:13 PM SCRUFF WORKER) Iron 31(L) 50 - 175 ug/dL 03/04/2024 4:53 PM SCRUFF WORKER [facility] Transferrin 257 174 - 382 mg/dL 03/04/2024 4:53 PM [facility] Transferrin Saturation % 10(L) 16 - 50 % 03/04/2024 4:53 PM [facility] TIBC Calculated 321 240 - 450 ug/dL 03/04/2024 4:53 PM [facility] Blood BLOOD SPECIMEN / Unknown Lab Venipuncture / Unknown 03/04/2024 4:13 PM SCRUFF WORKER 03/04/2024 4:23 PM SCRUFF WORKER Cindy Garcia MD LAB - CHEMISTRY CHELI MONREAL [address] [address], [place] [phone] * HEPATITIS C ANTIBODY (03/04/2024 4:13 PM SCRUFF WORKER) Pathologist [facility] Hepatitis C Antibody Non-react carlos Non-reac tive 03/04/2024 5:12 PM [facility] Comment:Hepatitis C Antibody screen indicates no serologic evidence of past or current infection with Hepatitis C Virus. Patients with unexplained liver disease who are immunocompromised or suspected of having acute Hepatitis C infection may benefit from Nucleic Acid Test (YUSRA) for Hepatitis C Viral RNA to confirm Hepatitis C status. Blood BLOOD SPECIMEN / Unknown Lab Venipuncture / Unknown 03/04/2024 4:13 PM SCRUFF WORKER 03/04/2024 4:23 PM SCRUFF WORKER Cindy Garcia MD LAB - CHEMISTRY CHELI MONREAL [facility] [address] [place] [address], [place] [phone] * (ABNORMAL) FERRITIN (03/04/2024 4:13 PM SCRUFF WORKER) Pathologist [facility] Ferritin 21(L) 22 - 275 ng/mL 03/04/2024 5:12 PM [facility] Blood BLOOD SPECIMEN / Unknown Lab Venipuncture / Unknown 03/04/2024 4:13 PM SCRUFF WORKER 03/04/2024 4:23 PM SCRUFF WORKER Cindy Garcia MD LAB - CHEMISTRY CHELI MONREAL [facility] [address] [place] [address], [facility] [phone] from Last 3 Months Advance Directives * Full Code (Latest Code Status on File) Date Activated Date Inactivated Comments 03/13/2024 9:41 PM 03/23/2024 2:56 PM Care Teams Rehabilitation Counsellor Relationship Specialty Start Date End Date Timothy Banks MD [address] [place] [phone] PCP - General 10/19/18 Cindy Garcia MD [address] [place] [address] Director Of Athletics/Oncologis t Hematology and Oncology 03/24/24
--- OUTSIDE RECORDS SUMMARY | 2024-04-11 13:49 | XMS_ITS | Referral Summary ---
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 This disclosure is being madepursuant to the Care Everywhere program and may not contain all information available regarding this patient. Last updated 17.[facility] Encounters Date Type Department Care Team Description 04/11/2024 5:49 AM DRY CLEANING COUNTER CLERK - 04/11/2024 11:05 AM DRY CLEANING COUNTER CLERK Hospital Encounter [facility] HARRY OP [address] [place] [phone] Cindy Garcia MD Interven Radiology Discharge Disposition: Home or Self Care 04/10/2024 Orders Only [facility] BMT CLINIC [address] [place] [address] Cindy Garcia MD Chronic kidney disease, unspecified CKD stage 04/05/2024 Orders Only [facility] BMT CLINIC [address] [place] [address] Cindy Garcia MD 04/04/2024 Telephone [facility] - Hematology/Oncolog y [address] [place] [phone] Cindy Garcia MD Medication Prior Auth Request 04/01/2024 Orders Only [facility] BMT CLINIC [address] [place] [address] Cindy Garcia MD Tumor lysis syndrome (HCC) 04/01/2024 Travel 04/01/2024 3:09 PM DRY CLEANING COUNTER CLERK - 04/01/2024 11:59 PM DRY CLEANING COUNTER CLERK Hospital Encounter [facility] CANCER CARE DRAWSTATION [address] [place] [address], 2nd [place] [address] Discharge Disposition: Home or Self Care 04/01/2024 Orders Only [facility] BMT CLINIC [address] [place] [phone] Cindy Garcia MD 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) 04/01/2024 2:00 PM DRY CLEANING COUNTER CLERK Office Visit [facility] - Hematology/Oncolog y [address] [place] [phone] Cindy Garcia MD 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) 03/25/2024 Orders Only 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 7N ACUTE [address] [place] [phone] Cindy Garcia MD Kumar, Ashwath, MD Schrader, MD Jodi Edwards, Josh Chavez MD Internal Medicine Discharge Disposition: Home or Self Care 03/14/2024 Telephone [facility] - Hematology/Oncolog y [address] [place] [phone] Cindy Garcia MD Medication Prior Auth Request 03/14/2024 Telephone [facility] - Hematology/Oncolog y [address] [place] [phone] Cindy Garcia MD Medication Prior Auth Request 03/14/2024 Telephone [facility] - Hematology/Oncolog y [address] [place] [phone] Cindy Garcia MD Medication Prior Auth Request 03/13/2024 Travel 03/13/2024 Telephone [facility] BMT CLINIC [address] [place] [phone] Cindy Garcia MD Medication Prior Auth Request 03/13/2024 Orders Only [facility] PHARMACY [address] [place] [phone] Sammie Hartman, PharmD 03/13/2024 Orders Only [facility] BMT CLINIC [address] [place] [phone] Cindy Garcia MD 03/04/2024 Travel 03/04/2024 3:35 PM DRY CLEANING COUNTER CLERK - 03/04/2024 11:59 PM DRY CLEANING COUNTER CLERK Hospital Encounter [facility] CANCER CARE DRAWSTATION [address] [place] [address], [address] [place] [address] Discharge Disposition: Home or Self Care 03/04/2024 Orders Only [facility] BMT CLINIC [address] [place] [phone] Cindy Garcia MD MDS (myelodysplastic syndrome) (HCC) 03/04/2024 2:00 PM DRY CLEANING COUNTER CLERK Office Visit [facility] - Hematology/Oncolog y [address] [place] [phone] Cindy Garcia MD MDS (myelodysplastic syndrome) (HCC) (Primary Dx) 03/01/2024 Orders Only [facility] BMT CLINIC [address] [place] [phone] Cindy Garcia MD Neutropenia, unspecified type (HCC) 03/01/2024 Telephone [facility] - Hematology/Oncolog y [address] [place] [phone] Cindy Mansfield MA Appointment (Patient has comfirmed) 02/13/2024 Lab Requisition [facility] - Pathology Lab [facility] [place] [phone] Rommel Dinh MD Illness, unspecified 02/12/2024 Lab Requisition [facility] - Pathology Lab [address] [place] [phone] Rommel Dinh MD Decreased white blood cell [...] and heating? Not hard at all 03/13/2024 [facility] [place] [facility] - Occupational Stress [...] any time in the [facility], were you homeless or living in a fdc (including now)? No 03/13/2024 Sex and Gender Information Value Date Recorded Sex Assigned at Male 03/05/2024 8:04 AM DRY CLEANING COUNTER CLERK Gender Identity Male 03/05/2024 8:04 AM DRY CLEANING COUNTER CLERK Sexual Orientation Straight 03/05/2024 8: 04 AM DRY CLEANING COUNTER CLERK Last Filed Vital Signs Vital Sign Reading Time Taken Comments Blood Pressure 129/75 04/11/2024 10:30 AM DRY CLEANING COUNTER CLERK Pulse 72 04/11/2024 10:30 AM DRY CLEANING COUNTER CLERK Temperature 36.8 ??C (98.2 ??F) 04/11/2024 9:35 AM CS T Respiratory Rate 16 04/11/2024 10:30 AM DRY CLEANING COUNTER CLERK Oxygen Saturation 93% 04/11/2024 10:30 AM DRY CLEANING COUNTER CLERK Inhaled Oxygen Concentration - - Weight 96.8 kg (213 lb 4.8 oz) 04/11/2024 6:54 A M DRY CLEANING COUNTER CLERK Height 182.9 cm (6') 04/11/2024 6:54 AM DRY CLEANING COUNTER CLERK Body Mass Index 28.93 04/11/2024 6:54 AM DRY CLEANING COUNTER CLERK Functional Status Functional Status Response Date of Assess ment Is person deaf or have serious hearing difficult y? No 04/11/2024 Is person blind or have serious difficulty seein g? No 04/11/2024 Does person have serious dif ficulty walking/climbing stairs? Yes 04/11/2024 Does person have difficulty dressing/bathing? No 04/11/2024 Does person have difficulty doing errands alone? No 04/11/2024 Cognitive Status Response Date of Assessm ent Does person have difficulty concentrating/remembering/making decisions? No 04/11/2024 Plan of Treatment Upcoming Encounters Date Type Department Care Team (Late st Contact Info) Description 04/15/2024 8:30 AM DRY CLEANING COUNTER CLERK Hospital Encounter [facility] INFUSION CENTER [address] [place] [phone] 04/16/2024 9:00 AM DRY CLEANING COUNTER CLERK Hospital Encounter [facility] INFUSION CENTER [address] [place] [phone] 04/17/2024 8:30 AM DRY CLEANING COUNTER CLERK Appointment [facility] INFUSION CENTER [address] [place] [phone] 04/18/2024 9:30 AM DRY CLEANING COUNTER CLERK Appointment [facility] INFUSION CENTER [address] [place] [phone] 04/18/2024 10:30 AM DRY CLEANING COUNTER CLERK Office Visit [facility] - Hematology/Oncology [address] [place] [phone] Cindy Garcia MD [address] [place] [phone] 04/19/2024 9:00 AM DRY CLEANING COUNTER CLERK Appointment [facility] INFUSION CENTER [address] [place] [phone] 05/13/2024 9:00 AM DRY CLEANING COUNTER CLERK Appointment [facility] INFUSION CENTER [address] [place] [phone] 05/28/2024 10:00 AM DRY CLEANING COUNTER CLERK Office Visit [facility] - Nephrology [address] [place] [phone] Cindy Garcia MD [address] [place] [phone] Santiago Meraz MD [facility] [place] [address] Medical Devices Implanted Type Area Web Worker Device Identifier Shelf Expiration Date Model / Serial / Lot Port Implinfn Powerport Clrvu Argd Kandy Implanted:Qty : 1 on 04/11/2024 by Davian Marshall MD at [facility] Catheters Right: Chest Wall [employer] [id number] 02/07/2025 [id number] / / [id number] Procedures Procedure Name Priority Date/Time Associated Diagnosis Comments COMPREHENSIVE METABOLIC PANEL Routine 04/11/2024 10:54 AM DRY CLEANING COUNTER CLERK Acute myeloid leuk w multilin dysplasia, 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) CBC W AUTO DIFFERENTIAL Routine 04/11/19 10:54 AM DRY CLEANING COUNTER CLERK Acute myeloid leuk w multilin dysplasia, 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) PT-INR H STAT 04/11/2024 7:20 AM DRY CLEANING COUNTER CLERK 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) MDS (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, 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) PHOSPHORUS BLOOD Routine 04/01/2024 3:12 PM DRY CLEANING COUNTER CLERK Tumor lysis syndrome (HCC) URIC ACID BLOOD Routine 04/01/2024 3:12 PM DRY CLEANING COUNTER CLERK Tumor lysis syndrome (HCC) DIFFERENTIAL MANUAL Routine 04/01/2024 3 :12 PM DRY CLEANING COUNTER CLERK 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) MAGNESIUM BLOOD Routine 04/01/2024 3:12 PM DRY CLEANING COUNTER CLERK 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) ERYTHROPOIETIN Routine 04/01/2024 3:12 PM DRY CLEANING COUNTER CLERK 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) SOLUBLE TRANSFERRIN RECEPTOR Routine 04/01/2024 3:12 PM DRY CLEANING COUNTER CLERK 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) COMPREHENSIVE METABOLIC PANEL Routine 04/01/2024 3:12 PM DRY CLEANING COUNTER CLERK 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) CBC W AUTO DIFFERENTIAL Routine 04/01/20 3:12 PM DRY CLEANING COUNTER CLERK 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) LAB RESULTS ORDER 03/25/2024 DIFFERENTIAL MANUAL AM Draw 03/23/2024 1 2:25 AM DRY CLEANING COUNTER CLERK MAGNESIUM BLOOD Routine 03/23/2024 12:25 AM DRY CLEANING COUNTER CLERK URIC ACID BLOOD Routine 03/23/2024 12:25 AM DRY CLEANING COUNTER CLERK PHOSPHORUS BLOOD Routine 03/23/2024 12:2 5 AM DRY CLEANING COUNTER CLERK COMPREHENSIVE METABOLIC PANEL Routine 03/23/2024 12:25 AM DRY CLEANING COUNTER CLERK LDH BLOOD Routine 03/23/2024 12:25 AM DRY CLEANING COUNTER CLERK PTT [facility] AM Draw 03/23/2024 12:25 AM DRY CLEANING COUNTER CLERK PT-INR [facility] AM Draw 03/23/2024 12:25 AM DRY CLEANING COUNTER CLERK CBC W AUTO DIFFERENTIAL AM Draw 03/23/20 12:25 AM DRY CLEANING COUNTER CLERK MAGNESIUM BLOOD Routine 03/22/2024 6:20 PM DRY CLEANING COUNTER CLERK URIC ACID BLOOD Routine 03/22/2024 6:20 PM DRY CLEANING COUNTER CLERK PHOSPHORUS BLOOD Routine 03/22/2024 6:20 PM DRY CLEANING COUNTER CLERK COMPREHENSIVE METABOLIC PANEL Routine 03/22/2024 6:20 PM DRY CLEANING COUNTER CLERK LDH BLOOD Routine 03/22/2024 6:20 PM DRY CLEANING COUNTER CLERK DIFFERENTIAL MANUAL AM Draw 03/22/2024 6 :58 AM DRY CLEANING COUNTER CLERK MAGNESIUM BLOOD Routine 03/22/2024 6:58 AM DRY CLEANING COUNTER CLERK URIC ACID BLOOD Routine 03/22/2024 6:58 AM DRY CLEANING COUNTER CLERK PHOSPHORUS BLOOD Routine 03/22/2024 6:58 AM DRY CLEANING COUNTER CLERK COMPREHENSIVE METABOLIC PANEL Routine 03/22/2024 6:58 AM DRY CLEANING COUNTER CLERK LDH BLOOD Routine 03/22/2024 6:58 AM DRY CLEANING COUNTER CLERK PTT [facility] AM Draw 03/22/2024 6:58 AM DRY CLEANING COUNTER CLERK PT-INR [facility] AM Draw 03/22/2024 6:58 AM DRY CLEANING COUNTER CLERK CBC W AUTO DIFFERENTIAL AM Draw 03/22/20 6:58 AM DRY CLEANING COUNTER CLERK MAGNESIUM BLOOD Routine 03/21/2024 3:47 AM DRY CLEANING COUNTER CLERK URIC ACID BLOOD Routine 03/21/2024 3:47 AM DRY CLEANING COUNTER CLERK PHOSPHORUS BLOOD Routine 03/21/2024 3:47 AM DRY CLEANING COUNTER CLERK COMPREHENSIVE METABOLIC PANEL Routine 03/21/2024 3:47 AM DRY CLEANING COUNTER CLERK LDH BLOOD Routine 03/21/2024 3:47 AM DRY CLEANING COUNTER CLERK PTT [facility] AM Draw 03/21/2024 3:47 AM DRY CLEANING COUNTER CLERK PT-INR [facility] AM Draw 03/21/2024 3:47 AM DRY CLEANING COUNTER CLERK CBC W AUTO DIFFERENTIAL AM Draw 03/21/20 3:47 AM DRY CLEANING COUNTER CLERK MAGNESIUM BLOOD Routine 03/20/2024 4:07 PM DRY CLEANING COUNTER CLERK URIC ACID BLOOD Routine 03/20/2024 4:07 PM DRY CLEANING COUNTER CLERK PHOSPHORUS BLOOD Routine 03/20/2024 4:07 PM DRY CLEANING COUNTER CLERK COMPREHENSIVE METABOLIC PANEL Routine 03/20/2024 4:07 PM DRY CLEANING COUNTER CLERK LDH BLOOD Routine 03/20/2024 4:07 PM DRY CLEANING COUNTER CLERK DIFFERENTIAL MANUAL AM Draw 03/20/2024 6 :28 AM DRY CLEANING COUNTER CLERK LDH BLOOD Routine 03/20/2024 6:28 AM DRY CLEANING COUNTER CLERK PTT [facility]H AM Draw 03/20/2024 6:28 AM DRY CLEANING COUNTER CLERK PT-INR SLH AM Draw 03/20/2024 6:28 AM DRY CLEANING COUNTER CLERK URIC ACID BLOOD Routine 03/20/2024 6:28 AM DRY CLEANING COUNTER CLERK PHOSPHORUS BLOOD Routine 03/20/2024 6:28 AM DRY CLEANING COUNTER CLERK MAGNESIUM BLOOD Routine 03/20/2024 6:28 AM DRY CLEANING COUNTER CLERK COMPREHENSIVE METABOLIC PANEL AM Draw 03/20/2024 6:28 AM DRY CLEANING COUNTER CLERK CBC W AUTO DIFFERENTIAL AM Draw 03/20/20 6:28 AM DRY CLEANING COUNTER CLERK DIFFERENTIAL MANUAL AM Draw 03/19/2024 6 :23 AM DRY CLEANING COUNTER CLERK LDH BLOOD Routine 03/19/2024 6:23 AM DRY CLEANING COUNTER CLERK PTT SLH AM Draw 03/19/2024 6:23 AM DRY CLEANING COUNTER CLERK PT-INR SLH AM Draw 03/19/2024 6:23 AM DRY CLEANING COUNTER CLERK URIC ACID BLOOD Routine 03/19/2024 6:23 AM DRY CLEANING COUNTER CLERK PHOSPHORUS BLOOD Routine 03/19/2024 6:23 AM DRY CLEANING COUNTER CLERK MAGNESIUM BLOOD Routine 03/19/2024 6:23 AM DRY CLEANING COUNTER CLERK COMPREHENSIVE METABOLIC PANEL AM Draw 03/19/2024 6:23 AM DRY CLEANING COUNTER CLERK CBC W AUTO DIFFERENTIAL AM Draw 03/19/20 6:23 AM DRY CLEANING COUNTER CLERK EKG 12-LEAD Routine 03/18/2024 1:48 PM DRY CLEANING COUNTER CLERK Inverted T wave PATHOLOGY PERIPHERAL SMEAR REVIEW AM Draw 03/18/2024 8:33 AM DRY CLEANING COUNTER CLERK DIFFERENTIAL MANUAL AM Draw 03/18/2024 8 :33 AM DRY CLEANING COUNTER CLERK LDH BLOOD Routine 03/18/2024 8:33 AM DRY CLEANING COUNTER CLERK PTT SLH AM Draw 03/18/2024 8:33 AM DRY CLEANING COUNTER CLERK PT-INR SLH AM Draw 03/18/2024 8:33 AM DRY CLEANING COUNTER CLERK URIC ACID BLOOD Routine 03/18/2024 8:33 AM DRY CLEANING COUNTER CLERK PHOSPHORUS BLOOD Routine 03/18/2024 8:33 AM DRY CLEANING COUNTER CLERK MAGNESIUM BLOOD Routine 03/18/2024 8:33 AM DRY CLEANING COUNTER CLERK COMPREHENSIVE METABOLIC PANEL AM Draw 03/18/2024 8:33 AM DRY CLEANING COUNTER CLERK CBC W AUTO DIFFERENTIAL AM Draw 03/18/20 8:33 AM DRY CLEANING COUNTER CLERK DIFFERENTIAL MANUAL AM Draw 03/17/2024 5 :28 AM DRY CLEANING COUNTER CLERK LDH BLOOD Routine 03/17/2024 5:28 AM DRY CLEANING COUNTER CLERK PTT SLH AM Draw 03/17/2024 5:28 AM DRY CLEANING COUNTER CLERK PT-INR SLH AM Draw 03/17/2024 5:28 AM DRY CLEANING COUNTER CLERK URIC ACID BLOOD Routine 03/17/2024 5:28 AM DRY CLEANING COUNTER CLERK PHOSPHORUS BLOOD Routine 03/17/2024 5:28 AM DRY CLEANING COUNTER CLERK MAGNESIUM BLOOD Routine 03/17/2024 5:28 AM DRY CLEANING COUNTER CLERK COMPREHENSIVE METABOLIC PANEL AM Draw 03/17/2024 5:28 AM DRY CLEANING COUNTER CLERK CBC W AUTO DIFFERENTIAL AM Draw 03/17/20 24 5:28 AM DRY CLEANING COUNTER CLERK DIFFERENTIAL MANUAL AM Draw 03/16/2024 1 2:04 AM DRY CLEANING COUNTER CLERK LDH BLOOD Routine 03/16/2024 12:04 AM DRY CLEANING COUNTER CLERK PTT SLH AM Draw 03/16/2024 12:04 AM DRY CLEANING COUNTER CLERK PT-INR SLH AM Draw 03/16/2024 12:04 AM DRY CLEANING COUNTER CLERK URIC ACID BLOOD Routine 03/16/2024 12:04 AM DRY CLEANING COUNTER CLERK PHOSPHORUS BLOOD Routine 03/16/2024 12:0 4 AM DRY CLEANING COUNTER CLERK MAGNESIUM BLOOD Routine 03/16/2024 12:04 AM DRY CLEANING COUNTER CLERK COMPREHENSIVE METABOLIC PANEL AM Draw 03/16/2024 12:04 AM DRY CLEANING COUNTER CLERK CBC W AUTO DIFFERENTIAL AM Draw 03/16/20 24 12:04 AM DRY CLEANING COUNTER CLERK ECHO COMPLETE W CONTRAST Routine 03/15/2024 1:47 PM DRY CLEANING COUNTER CLERK MDS (myelodysplastic syndrome) (HCC) MYELOID MALIGNANCIES MUTATION PNL Routine 03/15/2024 9:05 AM DRY CLEANING COUNTER CLERK MDS (myelodysplastic syndrome) (HCC) FISH MDS PANEL BLOOD OR BONE MARROW Routine 03/15/2024 9:05 AM DRY CLEANING COUNTER CLERK MDS (myelodysplastic syndrome) (HCC) FISH AML PANEL BLOOD OR BM RFLX PML/DANTE Routine 03/15/2024 9:05 AM DRY CLEANING COUNTER CLERK MDS (myelodysplastic syndrome) (HCC) FLOW CYTOMETRY BONE MARROW Routine 03/15/2024 9:05 AM DRY CLEANING COUNTER CLERK MDS (myelodysplastic syndrome) (HCC) BONE MARROW BIOPSY (STL) Routine 03/15/2024 9:05 AM DRY CLEANING COUNTER CLERK MDS (myelodysplastic syndrome) (HCC) FISH PML/DANTE PANEL Routine 03/15/2024 9 :05 AM DRY CLEANING COUNTER CLERK MDS (myelodysplastic syndrome) (HCC) CHROMOSOME ANALYSIS BONE MARROW PANEL Routine 03/15/2024 9:05 AM DRY CLEANING COUNTER CLERK MDS (myelodysplastic syndrome) (HCC) LAB MISC TEST (NOT BLOOD) Routine 03/15/2024 9:05 AM DRY CLEANING COUNTER CLERK LAB MISC TEST (NOT BLOOD) Routine 03/15/2024 9:05 AM DRY CLEANING COUNTER CLERK LAB MISC TEST (NOT BLOOD) Routine 03/15/2024 9:05 AM DRY CLEANING COUNTER CLERK DIFFERENTIAL MANUAL AM Draw 03/15/2024 7 :53 AM DRY CLEANING COUNTER CLERK LDH BLOOD Routine 03/15/2024 7:53 AM DRY CLEANING COUNTER CLERK PTT SLH AM Draw 03/15/2024 7:53 AM DRY CLEANING COUNTER CLERK PT-INR SLH AM Draw 03/15/2024 7:53 AM DRY CLEANING COUNTER CLERK URIC ACID BLOOD Routine 03/15/2024 7:53 AM DRY CLEANING COUNTER CLERK PHOSPHORUS BLOOD Routine 03/15/2024 7:53 AM DRY CLEANING COUNTER CLERK MAGNESIUM BLOOD Routine 03/15/2024 7:53 AM DRY CLEANING COUNTER CLERK COMPREHENSIVE METABOLIC PANEL AM Draw 03/15/2024 7:53 AM DRY CLEANING COUNTER CLERK CBC W AUTO DIFFERENTIAL AM Draw 03/15/20 24 7:53 AM DRY CLEANING COUNTER CLERK EKG 12-LEAD STAT 03/14/2024 12:30 PM DRY CLEANING COUNTER CLERK MDS (myelodysplastic syndrome) (HCC) FLOW CYTOMETRY BLOOD PROFILE Routine 03/14/2024 10:32 AM DRY CLEANING COUNTER CLERK MDS (myelodysplastic syndrome) (HCC) DIFFERENTIAL MANUAL STAT 03/13/2024 1 1:26 PM DRY CLEANING COUNTER CLERK LDH BLOOD Routine 03/13/2024 11:26 PM DRY CLEANING COUNTER CLERK PTT SLH Routine 03/13/2024 11:26 PM DRY CLEANING COUNTER CLERK PT-INR SLH Routine 03/13/2024 11:26 PM DRY CLEANING COUNTER CLERK FIBRINOGEN ACTIVITY Routine 03/13/2024 1 1:26 PM DRY CLEANING COUNTER CLERK D-DIMER Routine 03/13/2024 11:26 PM DRY CLEANING COUNTER CLERK URIC ACID BLOOD Routine 03/13/2024 11:26 PM DRY CLEANING COUNTER CLERK PHOSPHORUS BLOOD Routine 03/13/2024 11:2 6 PM DRY CLEANING COUNTER CLERK MAGNESIUM BLOOD Routine 03/13/2024 11:26 PM DRY CLEANING COUNTER CLERK COMPREHENSIVE METABOLIC PANEL STAT 03/13/2024 11:26 PM DRY CLEANING COUNTER CLERK CBC W AUTO DIFFERENTIAL STAT 03/13/20 11:26 PM DRY CLEANING COUNTER CLERK QUINN-TOVAR VIRUS QUANT BLOOD STL Routine 03/13/2024 11:26 PM DRY CLEANING COUNTER CLERK CYTOMEGALOVIRUS (CMV) QUANTITATIVE PLASMA Routine 03/13/2024 11:26 PM DRY CLEANING COUNTER CLERK CHROMOSOME ANALYSIS LEUKEMIA BLD Routine 03/04/2024 4:13 PM DRY CLEANING COUNTER CLERK MDS (myelodysplastic syndrome) (HCC) FISH PML/DANTE PANEL Routine 03/04/2024 4 :13 PM DRY CLEANING COUNTER CLERK MDS (myelodysplastic syndrome) (HCC) FISH AML PANEL BLOOD OR BM RFLX PML/DANTE Routine 03/04/2024 4:13 PM DRY CLEANING COUNTER CLERK MDS (myelodysplastic syndrome) (HCC) FISH AML+MDS PANEL BLOOD OR BONE MARROW Routine 03/04/2024 4:13 PM DRY CLEANING COUNTER CLERK MDS (myelodysplastic syndrome) (HCC) MYELOID MALIGNANCIES MUTATION PNL STAT 03/04/2024 4:13 PM DRY CLEANING COUNTER CLERK MDS (myelodysplastic syndrome) (HCC) DIFFERENTIAL MANUAL Routine 03/04/2024 4 :13 PM DRY CLEANING COUNTER CLERK Neutropenia, unspecified type (HCC) BCR-ABL1 CML+AML PCR QUANT PNL Routine 03/04/2024 4:13 PM DRY CLEANING COUNTER CLERK MDS (myelodysplastic syndrome) (HCC) CYTOMEGALOVIRUS ANTIBODY IGG BLOOD Routine 03/04/2024 4:13 PM DRY CLEANING COUNTER CLERK MDS (myelodysplastic syndrome) (HCC) HEPATITIS C ANTIBODY Routine 03/04/2024 4:13 PM DRY CLEANING COUNTER CLERK Neutropenia, unspecified type (HCC) HEPATITIS B SURFACE ANTIBODY Routine 03/04/2024 4:13 PM DRY CLEANING COUNTER CLERK Neutropenia, unspecified type (HCC) HIV-1 HIV-2 ANTIBODY + HIV P24 AG PANEL Routine 03/04/2024 4:13 PM DRY CLEANING COUNTER CLERK Neutropenia, unspecified type (HCC) ERYTHROCYTE SEDIMENTATION RATE Routine 03/04/2024 4:13 PM DRY CLEANING COUNTER CLERK Neutropenia, unspecified type (HCC) C-REACTIVE PROTEIN Routine 03/04/2024 4: 13 PM DRY CLEANING COUNTER CLERK Neutropenia, unspecified type (HCC) RHEUMATOID FACTOR BLOOD QUANTITATIVE Routine 03/04/2024 4:13 PM DRY CLEANING COUNTER CLERK Neutropenia, unspecified type (HCC) MARLINE BLOOD SCREEN W/REFLEX TITER Routine 03/04/2024 4:13 PM DRY CLEANING COUNTER CLERK Neutropenia, unspecified type (HCC) FERRITIN Routine 03/04/2024 4:13 PM DRY CLEANING COUNTER CLERK Neutropenia, unspecified type (HCC) IRON + TRANSFERRIN PANEL Routine 03/04/2024 4:13 PM DRY CLEANING COUNTER CLERK Neutropenia, unspecified type (HCC) TSH REFLEX FREE T4 Routine 03/04/2024 4: 13 PM DRY CLEANING COUNTER CLERK Neutropenia, unspecified type (HCC) ZINC BLOOD Routine 03/04/2024 4:13 PM DRY CLEANING COUNTER CLERK Neutropenia, unspecified type (HCC) COPPER BLOOD Routine 03/04/2024 4:13 PM DRY CLEANING COUNTER CLERK Neutropenia, unspecified type (HCC) FOLATE Routine 03/04/2024 4:13 PM DRY CLEANING COUNTER CLERK Neutropenia, unspecified type (HCC) VITAMIN B12 Routine 03/04/2024 4:13 PM DRY CLEANING COUNTER CLERK Neutropenia, unspecified type (HCC) COMPREHENSIVE METABOLIC PANEL Routine 03/04/2024 4:13 PM DRY CLEANING COUNTER CLERK Neutropenia, unspecified type (HCC) CBC W AUTO DIFFERENTIAL Routine 03/04/20 4:13 PM DRY CLEANING COUNTER CLERK Neutropenia, unspecified type (HCC) HEPATITIS B CORE ANTIBODY TOTAL Routine 03/04/2024 4:13 PM DRY CLEANING COUNTER CLERK Neutropenia, unspecified type (HCC) BONE MARROW BIOPSY (STL) Routine 02/12/2024 9:20 AM DRY CLEANING COUNTER CLERK Illness, unspecified FLOW CYTOMETRY BONE MARROW Routine 02/12/2024 9:20 AM DRY CLEANING COUNTER CLERK Decreased white blood cell count, unspecified from Last 3 Months Results * (ABNORMAL) CBC WITH DIFFERENTIAL (04/11/2024 10:54 AM DRY CLEANING COUNTER CLERK) Only the most recent of13 resultswithin the time period is included. WBC 0.2(LL) 4.0 - 10.7 x10E9/L 04/11/2024 12:38 PM [facility] Comment:No differential repo rted. WBC count <0.5 RBC Count 3.53(L) 4.30 - 5.80 x10E12/L 04/11/2024 12:38 PM [facility] Hemoglobin 10.0(L) 13.3 - 17.5 g/dL 04/11/2024 12:38 PM [facility] LAB[facility]ATORY [facility] Hematocrit 30.4(L) 38.7 - 51.1 % 04/11/2024 12:38 PM [facility] MCV 86.1 80.0 - 98.0 fL 04/11/2024 12:38 PM [facility] MCH 28.3 26.7 - 33.6 pg 04/11/2024 12:38 PM [facility] MCHC 32.9 31.7 - 36.3 g/dL 04/11/2024 12:38 PM [facility] RDW-CV 18.3(H) 11.3 - 14.8 % 04/11/2024 12:38 PM [facility] Platelet Count 89(L) 150 - 420 x10E9/L 04/11/2024 12:38 PM [facility] MPV 9.8 7.8 - 11.4 fL 04/11/2024 12:38 PM [facility] Blood BLOOD SPECIMEN / Unknown Venipuncture / Unknown 04/11/2024 10:54 AM DRY CLEANING COUNTER CLERK 04/11/2024 11:42 AM DRY CLEANING COUNTER CLERK Cindy Garcia MD LAB - HEMATOLOGY ORD ERABLES Performing Organization Address City/State/[facility] Co de Phone Number [address] [address] [phone] * (ABNORMAL) COMPREHENSIVE METABOLIC PANEL (04/11/2024 10:54 AM DRY CLEANING COUNTER CLERK) Only the most recent of15 resultswithin the time period is included. BUN 12 7 - 26 mg/dL 04/11/2024 1:41 PM [facility] Creatinine 1.09 0.71 - 1.16 mg/dL 04/11/2024 1:41 PM [facility] Sodium 142 136 - 145 mmol/L 04/11/2024 1:41 PM [facility] Potassium 3.5 3.5 - 4.5 mmol/L 04/11/2024 1:41 PM [facility] Chloride 110(H) 98 - 107 mmol/L 04/11/2024 1:41 PM [facility] CO2 22 22 - 29 mmol/L 04/11/2024 1:41 PM [facility] Glucose 130(H) 70 - 99 mg/dL 04/11/2024 1:41 PM [facility] Calcium 8.7 8.4 - 10.2 mg/dL 04/11/2024 1:41 PM [facility] Protein Total 5.8(L) 6.0 - 8.3 g/dL 04/11/2024 1:41 PM [facility] Albumin 3.2(L) 3.4 - 5.0 g/dL 04/11/2024 1:41 PM [facility] Bilirubin Total 1.0 0.2 - 1.2 mg/dL 04/11/2024 1:41 PM [facility] Alkaline Phosphatase 108 40 - 150 U/L 04/11/2024 1:41 PM [facility] ALT 19 5 - 55 U/L 04/11/2024 1:41 PM [facility] AST 16 5 - 34 U/L 04/11/2024 1:41 PM [facility] Anion Gap 10 6 - 16 04/11/2024 1:41 PM [facility] BUN/Creatinine Ratio 11 7 - 23 04/11/2024 1:41 PM [facility] Osmolality Calculated 296(H) 275 - 295 mOsm/kg 04/11/2024 1:41 PM [facility] Albumin/Globulin Ratio 1.2 1.1 - 2.3 04/11/2024 1:41 PM [facility] eGFR by CKD-EPI 69(L) >=90 mL/min/1.7 3 m2 04/11/2024 1:41 PM [facility] Blood BLOOD SPECIMEN / Unknown Venipuncture / Unknown 04/11/2024 10:54 AM DRY CLEANING COUNTER CLERK 04/11/2024 11:[address] [facility] Cindy Garcia MD LAB - CHEMISTRY ORDE JOCELIN [facility] Organization Address City/State/ZIP Co de Phone Number [facility] [address] [place] [address], [facility] [phone] * PT-INR [facility] (04/11/2024 7:[address] [facility]) Only the most recent of11 resultswithin the time period is included. PT 14.6 12.1 - 14.8 Seconds 04/11/2024 7:56 AM [facility] INR 1.2 See Comment 04/11/2024 7:56 AM DRY CLEANING COUNTER CLERK [facility] Comment:The suggested therap eutic range for standard coumadin (warfarin) therapy is an INR of 2.0-3.0. For high-risk patients (Mechanical Mitral Valve Prosthesis, etc.), the suggested prophylactic therapeutic range is an INR of 2.5-3.5. Blood BLOOD SPECIMEN / Unknown Venipuncture / Unknown 04/11/2024 7:20 AM DRY CLEANING COUNTER CLERK 04/11/2024 7:23 AM DRY CLEANING COUNTER CLERK Cindy Garcia MD LAB - COAGULATION OR DERABLES Performing Organization Address City/[facility]/ZIP Co de Phone Number [address] [address], [facility] [phone] * URIC ACID BLOOD (04/01/2024 3:12 PM DRY CLEANING COUNTER CLERK) Only the most recent of13 resultswithin the time period is included. Uric Acid 4.0 3.5 - 7.2 mg/dL 04/01/2024 5:52 PM DRY CLEANING COUNTER CLERK [facility] Blood BLOOD SPECIMEN / Unknown Lab Venipuncture / Unknown 04/01/2024 3:12 PM DRY CLEANING COUNTER CLERK 04/01/2024 5:30 PM DRY CLEANING COUNTER CLERK Cindy Garcia MD LAB - CHEMISTRY ORDE RABLES Performing Organization Address [facility] Co de Phone Number [address] [address], [facility] [phone] * ERYTHROPOIETIN (04/01/2024 3:12 PM DRY CLEANING COUNTER CLERK) Erythropoietin 22 4 - 27 mU/mL 04/02/2024 11:36 AM DRY CLEANING COUNTER CLERK [employer] ([facility]) Comment: INTERPRETIVE INFORMATION: Erythropoietin Normal [...] may benefit from therapy with recombinant EPO ([facility] [phone],1989). Performed By: [facility] [address] [place] [address] Community Mental Health Social Worker: Uche Morley MD, PhD CLIA Number: [id number] Blood BLOOD SPECIMEN / Unknown Lab Venipuncture / Unknown 04/01/2024 3:12 PM DRY CLEANING COUNTER CLERK 04/01/2024 3:22 PM DRY CLEANING COUNTER CLERK Cindy Garcia MD LAB - CHEMISTRY CHELI MONREAL [employer] [facility]) [address] [place] [address], [facility] * SOLUBLE TRANSFERRIN RECEPTOR (04/01/2024 3:12 PM DRY CLEANING COUNTER CLERK) [facility] Soluble Transferrin Receptor 3.3 2.2 - 5.0 mg/L 04/02/2024 9:13 PM DRY CLEANING COUNTER CLERK [facility] [employer] ([facility]) Comment: INTERPRETIVE INFORMATION: Soluble Transferrin [...] ??High ? Normal ? High Performed By: [facility] [employer] [address] [place] [address] Community Mental Health Social Worker: Uche Morley MD, PhD CLIA Number: [id number] Blood BLOOD SPECIMEN / Unknown Lab Venipuncture / Unknown 04/01/2024 3:12 PM DRY CLEANING COUNTER CLERK 04/01/2024 3:22 PM DRY CLEANING COUNTER CLERK Cindy Garcia MD LAB - CHEMISTRY CEHLI MONREAL [facility] ([facility]) [address] [place] [address], [facility] * (ABNORMAL) DIFFERENTIAL MANUAL (04/01/2024 3:12 PM DRY CLEANING COUNTER CLERK) Only the most recent of11 resultswithin the time period is included. Neutrophil % 31(L) 41 - 74 % 04/01/2024 5:13 PM [facility] Lymphocyte % 60(H) 17 - 47 % 04/01/2024 5:13 PM [facility] Monocyte % 9 3 - 11 % 04/01/2024 5:13 PM [facility] Neutrophil Absolute 0.25(L) 1.60 - 7.50 x10E9/L 04/01/2024 5:13 PM [facility] Lymphocyte Absolute 0.48(L) 1.00 - 4.40 x10E9/L 04/01/2024 5:13 PM [facility] Monocyte Absolute 0.07(L) 0.15 - 1.00 x10E9/L 04/01/2024 5:13 PM [facility] RBC Morphology REVIEWED 04/01/2024 5:13 PM [facility] Malden Cells MANY(A) (none) 04/01/2024 5:13 PM [facility] Schistocytes FEW(A) (none) 04/01/2024 5:13 PM [facility] Blood BLOOD SPECIMEN / Unknown Lab Venipuncture / Unknown 04/01/2024 3:12 PM DRY CLEANING COUNTER CLERK 04/01/2024 3:36 PM DRY CLEANING COUNTER CLERK Cindy Garcia MD LAB - HEMATOLOGY ORD ERABLES [facility] [address] [place] [address], [facility] [phone] * PHOSPHORUS BLOOD (04/01/2024 3:12 PM DRY CLEANING COUNTER CLERK) Only the most recent of13 resultswithin the time period is included. Phosphorus 2.9 2.8 - 5.1 mg/dL 04/01/2024 5:52 PM [facility] Blood BLOOD SPECIMEN / Unknown Lab Venipuncture / Unknown 04/01/2024 3:12 PM DRY CLEANING COUNTER CLERK 04/01/2024 5:30 PM DRY CLEANING COUNTER CLERK Cindy Garcia MD LAB - CHEMISTRY ORDE RABNIC Performing Organization Address City/[facility]/ZIP Co de Phone Number [facility] [address] [place] [address], [place] [phone] * MAGNESIUM BLOOD (04/01/2024 3:12 PM DRY CLEANING COUNTER CLERK) Only the most recent of13 resultswithin the time period is included. Magnesium 2.1 1.6 - 2.6 mg/dL 04/01/2024 4:25 PM [facility] Comment:Hemolysis detected i n this specimen. Hemolysis is known to cause elevations in this analyte. Caution should be exercised in the interpretation of this result. Recommend repeat testing if clinically indicated. Blood BLOOD SPECIMEN / Unknown Lab Venipuncture / Unknown 04/01/2024 3:12 PM DRY CLEANING COUNTER CLERK 04/01/2024 3:36 PM DRY CLEANING COUNTER CLERK Cindy Garcia MD LAB - CHEMISTRY ORDE JOCELIN Performing Organization Address City/[facility]/ZIP Co de Phone Number [address] [address], [facility] [phone] * LAB RESULTS ORDER (03/25/2024) 03/25/2024 Narrative 03/25/2024 Ordered by an unspecified provider. Scanned Document LAB - THERAPEUTIC DR UG MONITORING ORDERABLES * PTT [facility] (03/23/2024 12:25 AM DRY CLEANING COUNTER CLERK) Only the most recent of10 resultswithin the time period is included. APTT 35.4 23.0 - 38.4 Seconds 03/23/2024 1:31 AM DRY CLEANING COUNTER CLERK [facility] Comment:Suggested therapeuti c range for full dose I.V. unfractionated heparin therapy for venous 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 is 71 to 109 seconds. Blood BLOOD SPECIMEN / Unknown Venipuncture / Unknown 03/23/2024 12:25 AM DRY CLEANING COUNTER CLERK 03/23/2024 1:05 AM DRY CLEANING COUNTER CLERK Ghanshyam Dewey PA-C LAB - COAGULATION OR DERABLES Performing Organization Address [facility] Co de Phone Number [address] [address], [place] [phone] * LDH BLOOD (03/23/2024 12:25 AM DRY CLEANING COUNTER CLERK) Only the most recent of12 resultswithin the time period is included. LDH Total 173 125 - 243 Units/L 03/23/2024 1:36 AM DRY CLEANING COUNTER CLERK [facility] Blood BLOOD SPECIMEN / Unknown Venipuncture / Unknown 03/23/2024 12:25 AM DRY CLEANING COUNTER CLERK 03/23/2024 1:07 AM DRY CLEANING COUNTER CLERK Josh Momin MD LAB - CHEMISTRY ORD ERABLES Performing Organization Address City/[facility]/ZIP Co de Phone Number [address] [address], [facility] [phone] * EKG 12-LEAD (03/18/2024 1:48 PM DRY CLEANING COUNTER CLERK) Only the most recent of2 resultswithin the time period is included. [facility] Ventricular Rate 75 BPM [facility] MUSE Atrial Rate 75 BPM [facility] MUSE P-R Interval 122 ms [facility] MUSE QRS Duration ms 118 ms [facility] MUSE Q-T Interval ms 410 ms [facility] MUSE QTC Calculation (Bezet) 457 ms [facility] MUSE Calculated P [place] 42 degrees [facility] MUSE Calculated R [place] 36 degrees [facility] MUSE Calculated T [place] -134 degrees [facility] MUSE Interpretation EKG NORMAL SINUS RHYTHM WITH SINUS ARRHYTHMIA INCOMPLETE RIGHT BUNDLE BRANCH BLOCK ST & MARKED T WAVE ABNORMALITY, CONSIDER ANTEROLATERAL ISCHEMIA ABNORMAL ECG NO PREVIOUS ECGS AVAILABLE Confirmed by ROVERTO BELTRE MD ([id number]) on 03/22/2024 12:50:34 PM [facility] 03/18/2024 1:48 PM DRY CLEANING COUNTER CLERK 03/22/2024 12:50 PM DRY CLEANING COUNTER CLERK Caity Ortiz [employer] ARCHITECT-COLOR CONTROL SUPERVISOR ECG ORDERABL ES [facility] * PATHOLOGY PERIPHERAL SMEAR REVIEW (03/18/2024 8:33 AM DRY CLEANING COUNTER CLERK) [facility] Path Review Confirmed 03/18/2024 2:44 PM DRY CLEANING COUNTER CLERK [facility] Blood BLOOD SPECIMEN / Unknown Lab Venipuncture / Unknown 03/18/2024 8:33 AM DRY CLEANING COUNTER CLERK 03/18/2024 8:46 AM DRY CLEANING COUNTER CLERK Narrative [facility] - 03/18/2024 2:44 PM DRY CLEANING COUNTER CLERK A rare blast seen. Ghanshyam Dewey PA-C LAB - PATHOLOGY/CYTO LOGY ORDERABLES [facility] [address] [place] [address], [facility] [phone] * ECHO COMPLETE W CONTRAST (03/15/2024 1:47 PM DRY CLEANING COUNTER CLERK) [facility] IVSd 2D 1.314 cm [facility] CV FUJ I PACS LVIDd 5.186 cm SSM CV [facility] I PACS LVIDs 3.212 cm SSM CV [facility] I PACS LVOT diam 2.086 cm SSM CV [facility] I PACS LVPWd 1.34 cm [facility] CV [facility] I PACS LV biplane EF 72.906 % [facility] LV A2C EF 72.639 % [facility] CV [facility] I PACS LV A4C EF 72.078 % [facility] CV [facility] I PACS LV EDV A2C 124.945 ml SSM CV FU JI PACS LV EDV A4C 128.559 ml SSM CV FU JI PACS LV ESV A2C 34.187 ml SSM CV FU JI PACS LV ESV A4C 35.897 ml SSM CV FU JI PACS LVOT pk lawanda 132.418 cm/s SSM CV F U PACS LVOT VTI 32.536 cm SSM CV [facility] I PACS RVIDd 3.985 cm SSM CV [facility] I PACS RVOT pk lawanda 69.928 cm/s SSM CV F U PACS RVOT VTI 14.149 cm SSM CV [facility] I PACS LA size 3.887 cm SSM CV [facility] I PACS LA vol BP 103.263 ml SSM CV [facility] I PACS RA area 17.733 cm? ? ? [facility] AV pk lawanda regurg 205.453 cm/s [facility] AR VTI 104.216 cm SSM CV [facility] I PACS AV mn grad 5.22 mmHg SSM CV FU PACS AV pk lawanda 141.499 cm/s SSM CV [facility] I PACS AV VTI 30.145 cm SSM CV [facility] I PACS MV A pk lawanda 84.582 cm/s SSM CV F U PACS MV E pk lawanda 99.639 cm/s SSM CV F U PACS MV E' lateral lawanda 5.461 cm/s [facility] MV mn grad 1.183 mmHg SSM CV FU PACS MV VTI 30.572 cm SSM CV [facility] I PACS PV pk lawanda 84.446 cm/s SSM CV [facility] I PACS PV VTI 18.271 cm SSM CV [facility] I PACS TAPSE 1.78 cm SSM CV FUJ I PACS TR pk lawadna 276.773 cm/s SSM CV FUJ I PACS Ascending aorta 3.799 cm SSM CV FUJI PACS LA vol index 0.046 l/m? ? ? SSM CV FUJI PACS Myocardial strain charge 2 unitless SSM CV FUJI PACS Sinus of Valsalva 3.4 cm SSM CV FUJI PACS ST junction 3.4 cm SSM CV F UJI PACS Anatomical Region Laterality Modality Ultrasound 03/15/2024 2:04 PM DRY CLEANING COUNTER CLERK Narrative 03/15/2024 5:17 PM DRY CLEANING COUNTER CLERK Summary ??* The left ventricle is normal [...] 1945 Gender: ? Male Accession #: ? [id number] Ht: ? 72 in Wt: ? 218 lb BSA: ? 2.26 m2 HR: ? 65 bpm BP: ? 103 / ? 55 mmHg Exam Date: ? 03/15/2024 2:04 PM Patient Status: ? I/P Study Site: ? [facility] Primary Location: ? [facility] EStudy Info Technical Quality: ? Adequate Exam [...] ? Ted Soler Fellow: ? Josh Knight Environmental Quality Analyst: ? Dhruv Sorto Left Ventricle ??Left ventricular [...] PM Patient Status: I/P Study Site: [facility] Primary Location: [facility] EStudy Info Technical Quality: Adequate Exam Type: [...] Attending Physician: Ted Soler Fellow: Josh Knight Environmental Quality Analyst: Dhruv Sorto Left Ventricle Left ventricular systolic [...] TV Lateral Kanika s' Velocity 12 cm/s 10 Aorta Name Value Normal Ascending Aorta Sinus [...] 03/15/2024 04:56 PM Ted Soler MD ECHO ALBINOID * FISH MDS PANEL BLOOD OR BONE MARROW (03/15/2024 9:05 AM DRY CLEANING COUNTER CLERK) Pathologist [facility] MDS Panel by Fish See Note Normal 024 11:26 AM DRY CLEANING COUNTER CLERK [employer] ([facility]) Comment: Test Performed: Myelodysplastic Syndrome [...] 7, deletion 7q31, trisomy 8, or deletion 03o94-w64.1. This analysis was performed with the MDS panel probes D5S23/EGR1, D7Z1/L4C675, CEP8 ([employer]), and Del(20q) ([employer]). A total of 200 cells were scored for each probe. Cytogenomic Nomenclature (ISCN): nuc nereyda(D5S23,EGR1,D7Z1,N1V052,D8Z2,D29J390,MYBL2)x2[200' This result has been reviewed and approved by Nabial Gonzalez, PhD, [facility] A portion of this analysis was performed at the following location(s): [facility] CG-[place]#2 INTERPRETIVE INFORMATION: MDS Panel by FISH This test was developed and its performance characteristics determined by [facility]. It has not been cleared or approved by the US Food and Drug Administration. This test was performed in a CLIA certified laboratory and is intended for clinical purposes. EER MDS Fish Panel See Note 2023 11:26 AM DRY CLEANING COUNTER CLERK [employer] ([facility]) Comment: Authorized individuals can access the [facility] Enhanced Report using the following link: [email or web address] Performed By: [facility] [address] [place] [address] Community Mental Health Social Worker: Uche Morley MD, PhD CLIA Number: [id number] Other BONE MARROW SPECIMEN / Unknown Collection / Unknown 03/15/2024 9:05 AM DRY CLEANING COUNTER CLERK 03/15/2024 9:30 AM DRY CLEANING COUNTER CLERK Rodo Perez MD LAB - PATHOLOG Y/CYTOLOGY ORDERABLES [facility] [employer] [facility]) [address] * FISH AML PANEL BLOOD OR BM RFLX PML/DANTE (03/15/2024 9:05 AM DRY CLEANING COUNTER CLERK) Only the most recent of2 resultswithin the time period is included. FISH AML Panel See Note Normal 03/25/2024 10:34 AM DRY CLEANING COUNTER CLERK [facility] [employer] ([facility]) Comment: Test Performed: Acute Myeloid Leukemia Panel by FISH (FISHAML) Specimen Type: Bone Marrow Indication for Testing: Myelodysplastic syndrome, unspecified RESULT Normal FISH Result inv(3) or t(3;3) GATA2::MECOM Fusion: ??not detected Deletion 5q: ??not detected Monosomy 7: ??not detected Deletion 7q: ??not detected t(8;21) RUNX1::NJXG8K6 Fusion: ??not detected 11p15 (NUP98) Rearrangement: ??not detected 11q23 (KMT2A) Rearrangement: ??not detected inv(16) or t(16;16) CBFB::MYH11 Fusion: ??not detected INTERPRETATION There was no evidence of GATA2::MECOM (also known as RPN1-EVI1) fusion due to 3q21/3q26.2 inversion or translocation, deletion 5q31, monosomy 7, deletion 7q31, RUNX1::MQXE9Y0 fusion due to translocation (8;21)(q21.3;q22), 11p15 (NUP98) rearrangement, 11q23 KMT2A (MLL) rearrangement, or CBFB::MYH11 fusion due to either 16p13.1/16q22 inversion or translocation. This analysis was performed with the AML panel probes RPN1/MECOM, D5S23/EGR1, D7Z1/A4K008, RUNX1/WISG4Q0 ([employer]), NUP98 and CBFB-MYH11 ([employer] and MLL (KMT2A) ([employer]). A total of 200 cells were scored for each probe. Cytogenomic Nomenclature (ISCN): nuc nereyda(RPN1,MECOM,D5S23,EGR1,D7Z1,V1K313,MRLF0B1,NUP98,KMT2A,MYH11,CBF B,RUNX1)x2[200' This result has been reviewed and approved by Mundo Mejia, PhD, [facility] A portion of this analysis was performed at the following location(s): [facility] CG-[place]#1 INTERPRETIVE INFORMATION: AML Panel by FISH This test was developed and its performance characteristics determined by [facility]. It has not been cleared or approved by the US Food and Drug Administration. This test was performed in a CLIA certified laboratory and is intended for clinical purposes. EER AML Panel by FISH See Note 03/25/2024 10:34 AM DRY CLEANING COUNTER CLERK [employer] ([facility]) Comment: Authorized individuals can access the [employer] Enhanced Report using the following link: [email or web address] Performed By: [facility] [address] [place] [address] Community Mental Health Social Worker: Uche Morley MD, PhD CLIA Number: [id number] Other BONE MARROW SPECIMEN / Unknown Collection / Unknown 03/15/2024 9:05 AM DRY CLEANING COUNTER CLERK 03/15/2024 9:30 AM DRY CLEANING COUNTER CLERK Rodo Perez MD LAB - PATHOLOG Y/CYTOLOGY ORDERABLES [facility] ([facility]) [address] [place] [address], [facility] * FLOW CYTOMETRY BONE MARROW (03/15/2024 9:05 AM DRY CLEANING COUNTER CLERK) Only the most recent of2 resultswithin the time period is included. Case Report Flow Cytometry ?Case: [id number] ? Authorizing Provider: ??Rodo Perez, ?? Collected: ? 03/15/2024 09:05 AM ? MD ? Ordering Location: ? [facility] 7[facility] ACUTE ? Received: ?03/15/2024 09:30 AM ? Pathologist: ? Angeles Rosado MD ? Specimen: ?Bone Marrow ? 03/15/2024 2:40 PM [facility] Final Diagnosis Bone marrow, flow cytometric immunophenotypic analysis: - Paucicellular specimen with increased myeloblasts detected (42.4% of events) - See interpretation 03/15/2024 2:40 PM [facility] Flow Cytometry Interpretation Viability: 92%, [...] flow cytometry specimen has been reviewed for billing and quality technician purposes. Correlation with the concurrent bone marrow biopsy ([id number]) is required. 03/15/2024 2:40 PM [facility] Flow Cytometry Results Differential Result Comment Flow Cell Count /uL 980 Total Viability % 92.0 Lymphocytes % 13 Dim CD45 Region % 55 Monocytes % 2 Granulocytes % 28 03/15/2024 2:40 PM [facility] Reason for test MDS (myelodysplastic syndrome) (HCC) 238.75 03/15/2024 2:40 PM [facility] Client Specimen ID # [id number] 03/15/2024 2:40 PM [facility] Number of markers 24 were performed. A-2 Flow CD10 A-3 Flow CD13 A-5 Flow CD20 A-11 Flow CD2 A-13 Flow CD14 A-16 Flow CD117 A-17 Flow CD11b A-18 Flow CD11c A-1 Flow CD5 A-4 Flow CD19 A-6 Flow CD33 A-7 Flow CD34 A-8 Flow CD45 A-12 Flow CD7 A-14 Flow CD56 A-15 Flow CD64 A-23 cyCD22 A-24 qwVZ54f A-9 Mosheim+CD19+ A-10 Lambda+CD19+ A-19 Flow HLA-DR A-20 Flow MPO A-21 Flow TdT A-22 cyCD3 03/15/2024 2:40 PM [facility] Pathologist Location at [facility] 03/15/2024 2:40 PM [facility] Disclaimer Test performed at [facility], [address] [place] [address], [id number]. *The established laboratory minimum viability is 70%. [...] high complexity clinical testing. 03/15/2024 2:40 PM [facility] Embedded Images 2:40 PM [facility] Pathology/Cytolo gy BONE MARROW SPECIMEN / Unknown Collection / Unknown 03/15/2024 9:05 AM DRY CLEANING COUNTER CLERK 03/15/2024 9:30 AM DRY CLEANING COUNTER CLERK Rodo Perez MD LAB - PATHOLOG Y/CYTOLOGY ORDERABLES [facility] [address] [place] [address]. [place] [address], [facility] [phone] * BONE MARROW BIOPSY (STL) (03/15/2024 9:05 AM DRY CLEANING COUNTER CLERK) Only the most recent of2 resultswithin the time period is included. Case Report Bone Marrow Patholog y Report ?Case: [id number] ? Authorizing Provider: ??Rodo Perez, ?? Collected: ? 03/15/2024 09:05 AM ? MD ? Ordering Location: ? [facility] AC[facility] ? Received: ?03/15/2024 09:30 AM ? Pathologist: ? Stephanie, Guillermo H, MD ? Specimens: ?? A) - Bone Marrow Clot ? B) - Bone Marrow Core ? C) - Bone Marrow Aspirate ? D) - Blood Peripheral ? 03/18/2024 4:01 PM [facility] Final Diagnosis Bone marrow, aspirate, clot section, and core biopsy: - Acute myeloid leukemia. - See description. Peripheral blood smear: - Pancytopenia. - See description. 03/18/2024 4:01 PM [facility] Comment Immunohistochemistry performed show ~30% [...] for a definitive subclassification. 03/18/2024 4:01 PM [facility] Peripheral Smear Description RBC: normocytic anemia. WBC: leukopenia with absolute neutropenia and lymphopenia. No circulating blasts seen. Platelets: decreased in number. 03/18/2024 4:01 PM [facility] Bone Marrow Aspirate Differential count [...] stain): no ring sideroblasts. 03/18/2024 4:01 PM [facility] Bone Marrow Core Biopsy and [...] morphology: peripheral blood only. 03/18/2024 4:01 PM [facility] Flow Cytometry Summary Bone marrow, flow cytometric immunophenotypic analysis ([id number]): - Paucicellular specimen with increased myeloblasts detected (42.4% of events) 03/18/2024 4:01 PM [facility] Clinical History New AML. 03/18/2024 4:01 PM [facility] Gross Description The requisition and [...] in cassette B1. DF 03/18/2024 4:01 PM [facility] Pathologist Location at [facility] 03/18/2024 4:01 PM [facility] Disclaimer The performance characteristics of all immunohistochemical and indirect immunofluorescence stains (if any) cited in this report were determined by the Histopathology Laboratory of [facility]. Some of these tests were developed by [...] the attending (teaching) pathologist. 03/18/2024 4:01 PM [facility] Embedded Images 03/18/2024 4:01 PM DRY CLEANING COUNTER CLERK [facility] Pathology/Cytology PERIPHERAL BLOOD / Unknown Collection / Unknown 03/15/2024 9:05 AM DRY CLEANING COUNTER CLERK 03/15/2024 9:30 AM DRY CLEANING COUNTER CLERK Miscellaneous samples (specimen) BONE MARROW SPECIMEN / Unknown 03/15/2024 9:05 AM DRY CLEANING COUNTER CLERK 03/15/2024 9:30 AM DRY CLEANING COUNTER CLERK Miscellaneous samples (specimen) SPECIMEN FROM BONE MARROW OBTAINED BY ASPIRATION / Unknown 03/15/2024 9:05 AM DRY CLEANING COUNTER CLERK 03/15/2024 9:30 AM DRY CLEANING COUNTER CLERK Miscellaneous samples (specimen) PERIPHERAL BLOOD / Unknown 03/15/2024 9:05 AM DRY CLEANING COUNTER CLERK 03/15/2024 11:39 AM DRY CLEANING COUNTER CLERK Rodo Perez MD LAB - PATHOLOG Y/CYTOLOGY ORDERABLES Performing Organization Address City/State/[facility] Co de Phone Number [facility] [address] [phone] * MYELOID MALIGNANCIES MUTATION PNL (03/15/2024 9:05 AM DRY CLEANING COUNTER CLERK) Only the most recent of2 resultswithin the time period is included. Interpretation Myeloid Malignancy PNL See Note 03/28/2024 2:06 PM DRY CLEANING COUNTER CLERK [facility] [facility] ([facility]) Comment: Myeloid Malignancies Mutation Panel NGS Submitted diagnosis or diagnosis under consideration for variant interpretation: Myelodysplastic syndrome, unspecified Note: Prior NGS testing performed on this patient (most recent [employer] accession [id number]) was reviewed in conjunction with the current case to compare molecular variants reported. The previously reported molecular variants DNMT3A, IDH1, and CUX1 are again detected in the current study. In addition, new molecular variants in STAG2, BCOR, JAK2, and CEBPA are now detected. TIER 1: Variants of Known Clinical Significance in Hematologic Malignancies 1. IDH1 c.394C>A, p.Aqy099Bhr (NM_[id number]) VAF: 38.4% IDH1 encodes an enzyme that catalyzes the conversion of isocitrate to alpha-ketoglutarate in the citric acid cycle (23). Somatic mutations of IDH1 are found in 4-12% of patients with myelodysplastic syndrome (MDS).This mutation has been reported in hematologic malignancies (4). The prognostic significance of mutated IDH1 in MDS is uncertain (20) (27) (7) (14) (19) (32). 2. DNMT3A c.2206C>T, p.Plm393Apv (NM_[id number]) VAF: 42.2% DNMT3A encodes a DNA [...] stem cell transplantation (2). 3. DNMT3A c.2407A>G, p.Kjs469Ypc (NM_175629.2) VAF: 38.8% This mutation has also been reported in hematologic malignancies (4). 4. JAK2 c.1849G>T, p.Vgr562Sdn (NM_004972.4) VAF: 14.4% JAK2 encodes a non-receptor protein tyrosine kinase that regulates STAT organizational effectiveness consultant factors in response to cytokine receptor signaling (13). JAK2 mutations have been reported in 3-6% of patients with MDS (6) (15) (31). This JAK2 mutation (p.Ajo036Dvk) has also been reported in approximately 10-25% of patients with myelodysplastic/myeloproliferative neoplasms (MDS/MPN) (31) (21). This particular JAK2 mutation occurs in the pseudokinase (JH2) domain and leads to activation of the NOLAN-STAT pathway signaling. The prognostic significance of JAK2 mutations in MDS is unclear (6). 5. STAG2 c.1840C>T, p.Jna961* (NM_[id number]) VAF: 31.7% STAG2 encodes a subunit [...] unmutated cohesin genes (29). 6. BCOR c.3649C>T, p.Gtg5874* (NM_[id number]) VAF: 9.6% BCOR encodes a transcriptional corepressor that interacts with BCL-6 and histone deacetylases (HDACs) (5) (12). Mutations in BCOR are seen in 4% of patients with MDS (5) (11). BCOR mutations in MDS are often frameshift and nonsense mutations that result in exia-go-xlgvdpfy (5) (11). This mutation is predicted to alter the normal function of BCOR. BCOR mutations are associated with a higher incidence of AML transformation in MDS patients and shorter overall survival in MDS patients (5) (11) (16). 7. BCOR c.635_638del, p.Iqd282Hbire*3 (NM_[id number]) VAF: 6.2% This mutation is also predicted to alter the normal function of BCOR. TIER 2: Variants of Unknown Clinical Significance in Hematologic Malignancies 1. CEBPA c.1074_*9del, p.*359Cysext*58 (NM_004364.5) VAF: 4.7% CEBPA encodes a protein that is a member of the basic region leucine zipper family of organizational effectiveness consultant factors (18). Somatic mutations of CEBPA are [...] if any, is uncertain. 2. CUX1 c.3085G>A, p.Dvr6312Rlt (NM_181552.4) VAF: 44.8% This variant has been rarely reported in hematologic malignancies (1) (10), to the best of our knowledge. References 1: Lynnette P, ??Emmanuelle B, ??Zhanna CLARK et al, Assessment of Minimal Residual Disease by Next Generation Sequencing in Peripheral Blood as a Complementary Tool for Personalized Transplant Monitoring in Myeloid Neoplasms. J Clin Med 2020. PMID:93104621 2: Virginie R, ??Juan HERNANDEZ, ??Ulises Kim et al, Somatic mutations predict poor outcome in patients with myelodysplastic syndrome after hematopoietic stem-cell transplantation. J Clin Oncol 2014. PMID:35287262 3: cBioPortal: http://www.cbioportal.org/ 4: COSMIC: https://cancer.vipin.ac.uk/cosmic 5: Braulio F, ??Yu Barcenas, ??Camilla Deutsch et al, BCOR and BCORL1 mutations in myelodysplastic syndromes and related disorders. Blood 2013. PMID:65806014 6: Bill M, ??Jennifer C, ??Víctor Stroud et al, JAK2 Mutations Are Rare and Diverse in Myelodysplastic Syndromes: Case Series and Review of the Literature. Hematol Rep 2022. PMID:12654131 7: Jahaira CD, ??Kamla E, ??Mary Mason et al, IDH1 and IDH2 mutations in myelodysplastic syndromes and role in disease progression. Leukemia 2016. PMID:95729141 8: Fried I, ??Day C, ??Lenin MURPHY et al, Frequency, onset and clinical impact of somatic DNMT3A mutations in therapy-related and secondary acute myeloid leukemia. Haematologica 2012. PMID:34848983 9: Nuha O, ??Idania D, ??Luanne Payne et al, CEBPA polymorphisms and mutations in patients with acute myeloid leukemia, myelodysplastic syndrome, multiple myeloma and non-Hodgkin's lymphoma. Blood Cells Mol Dis 2008. PMID:70548943 10: Cassandra Kim, ??Cornell Payne, ??Alexis Valdivia et al, DNA methylation epitypes highlight underlying developmental and disease pathways in acute myeloid leukemia. Genome Res 2020. PMID:40147101 11: Ivan V, ??Jenna E, ??Alondra DEMPSEY et al, Whole-exome sequencing identifies somatic mutations of BCOR in acute myeloid leukemia with normal karyotype. Blood 2011. PMID:03324944 12: Lin KD, ??Yashira W, ??Darcie Estrada et al, BCoR, a novel corepressor involved in BCL-6 repression. Genes Dev 2000. PMID:67201817 13: Fabian SS, ??Jen SJ, ??Amandeep LR et al, Nolan/STAT pathways in cytokine signaling and myeloproliferative disorders: approaches for targeted therapies. Genes Cancer 2010. PMID:04745380 14: Jose J O, ??Charity V, ??Grayson Stroud et al, Mutations of IDH1 and IDH2 genes in early and accelerated phases of myelodysplastic syndromes and MDS/myeloproliferative neoplasms. Leukemia 2010. PMID:16126028 15: Malaika M, ??Catherine Rubin, ??Ahsan Talavera et al, Molecular analysis of myelodysplastic syndrome with isolated deletion of the long arm of chromosome 5 reveals a specific spectrum of molecular mutations with prognostic impact: a study on 123 patients and 27 genes. Haematologica 2017. PMID:79880466 16: Gregoria BAR, ??Meliton T, ??Valerie Payne et al, Spectrum and prognostic relevance of route driver gene mutations in acute myeloid leukemia. Blood 2016. PMID:94187662 17: Nicol Tong, ??Mel MEANS, ??Milton Doss et al, Dominant-negative mutations of CEBPA, encoding CCAAT/enhancer binding protein-alpha (C/EBPalpha), in acute myeloid leukemia. Yusra Emely 2001. PMID:63781733 18: Mel Hughes, Complexity of CEBPA dysregulation in human acute myeloid leukemia. Clin Cancer Res 2009. PMID:72526779 19: Papaemmanuil E, ??Gerstung M, ??Abrahamcojimmy L et al, Clinical and biological implications of route driver mutations in myelodysplastic syndromes. Blood 2013. PMID:96240483 20: Eileen MURPHY, ??Rajinder CHRISTY, ??Juju OTERO et al, Differential prognostic effect of IDH1 versus IDH2 mutations in myelodysplastic syndromes: a [facility] study of 277 patients. Leukemia 2012. PMID:29694049 21: Eileen MURPHY, George MCDOWELL, Genomics of myelodysplastic syndrome/myeloproliferative neoplasm overlap syndromes. Hematology Am Soc Hematol Educ Program 2020. PMID:89435755 22: Preudhomme C, ??Sagot C, ??Heather Flower et al, Favorable prognostic significance of CEBPA mutations in patients with de elinor acute myeloid leukemia: a study from the Acute Leukemia [employer] Association (JOSE). Blood 2002. PMID:87266320 23: Bulmaro BENTON, Josse H, Isocitrate dehydrogenase 1 and 2 mutations in cancer: alterations at a crossroads of cellular metabolism. J Natl Cancer Inst 2010. PMID:21279355 24: Jose A, ??Ivan V, ??Yudi U et al, [place] analysis of DNMT3A mutations in hematological malignancies. Leukemia 2013. PMID:17808986 25: Kim LANZA, ??Lisa-Hussein O, ??Arnulfo REINOSO et al, The role of mutations in epigenetic regulators in myeloid malignancies. Yusra Rev Cancer 2012. PMID:21572640 26: Taube F, ??Hubert ISSA, ??Efrem Payne et al, CEBPA mutations in 4708 patients with acute myeloid leukemia: differential impact of bZIP and TAD mutations on outcome. Blood 2021. PMID:35319012 27: Thol F, ??Weissinger EM, ??Sam Lynn et al, IDH1 mutations in patients with myelodysplastic syndromes are associated with an unfavorable prognosis. Haematologica 2010. PMID:67521145 28: Thol F, ??Lisa C, ??Bro Valdivia et al, Rare occurrence of DNMT3A mutations in myelodysplastic syndromes. Haematologica 2011. PMID:27592511 29: Josey S, ??Liam AD, ??Joan Weller et al, Genetic alterations of the cohesin complex genes in myeloid malignancies. Blood 2014. PMID:[id number] 30: Barrett MERRITT, ??Tono L, ??Jossue Amador et al, Recurrent DNMT3A mutations in patients with myelodysplastic syndromes. Leukemia 2011. PMID:48877465 31: Lawrence Camargo, Juan Diego Kim, Comparison and Implications of Mutational Profiles of Myelodysplastic Syndromes, Myeloproliferative Neoplasms, and Myelodysplastic/Myeloproliferative Neoplasms: A Drifting-Analysis. Front Oncol 2020. PMID:[id number] 32: Cornell Flower, ??Cornell F, ??Yuval Flower et al, IDH1 Mutation Is an Independent Inferior Prognostic Indicator for Patients with Myelodysplastic Syndromes. Acta Haematol 2017. PMID:94107571 33: Ochoa L, Gabriella R, Hieu ALBERTS, DNMT3A in haematological malignancies. Yusra Rev Cancer 2015. PMID:17487608 This result has been reviewed and approved by Jannette Dutta M.D. Low coverage regions: Listed below are regions where the average sequencing depth (number of times a particular nucleotide is sequenced) in at least 20% of the dqmabs-rw-odfcmjph is less than our stringent cutoff of [...] NOTCH1; NPM1*; NRAS; NSD1; PHF6; PIGA; PPM1D; NPMI21W; PRPF8; PTPN11; RAD21; RUNX1; SAMD9; SAMD9L; SETBP1; [...] developed and its performance characteristics determined by [facility]. It has not been cleared or approved by the U.S. Food and Drug Administration. This test was performed in a CLIA-certified laboratory and is intended for clinical purposes. Myeloid Malignancy Dx Mds Unspec 03/28/2024 2:06 PM [facility] ([facility]) Myeloid Malignancy Panel Specimen Bone Marrow 03/28/2024 2:06 PM [facility] [employer] [facility]) EER Myeloid Malignancy See Note 03/28/2024 2:06 PM DRY CLEANING COUNTER CLERK [facility] ([facility]) Comment: Authorized individuals can access the [facility] Enhanced Report using the following link: [email or web address] Performed By: [facility] [address] [place] [address] Community Mental Health Social Worker: Uche Morley MD, PhD CLIA Number: [id number] Other BONE MARROW SPECIMEN / Unknown Collection / Unknown 03/15/2024 9:05 AM DRY CLEANING COUNTER CLERK 03/15/2024 9:30 AM DRY CLEANING COUNTER CLERK Rodo Perez MD LAB - PATHOLOG Y/CYTOLOGY ORDERABLES [facility] [employer] [facility]) [address] [place] [address], [facility] * LAB MISC TEST (NOT BLOOD) (03/15/2024 9:05 AM DRY CLEANING COUNTER CLERK) Only the most recent of3 resultswithin the time period is included. Test Name Tp53 03/21/2024 12:06 PM DRY CLEANING COUNTER CLERK [facility] REF LAB NON INTERF Test Result See Scanned Report 03/21/2024 12:06 PM DRY CLEANING COUNTER CLERK [facility] REF LAB NON INTERF Comment Ref Lab 03/21/2024 12:06 PM DRY CLEANING COUNTER CLERK [facility] REF LAB NON INTERF Other BONE MARROW SPECIMEN / Unknown Collection / Unknown 03/15/2024 9:05 AM DRY CLEANING COUNTER CLERK 03/15/2024 9:30 AM DRY CLEANING COUNTER CLERK Rodo Perez MD LAB - BODY FLU ID ORDERABLES [facility] REF LAB NON INTERF [address] [place] [address], [facility] [phone] * FISH PML/DANTE PANEL (03/15/2024 9:05 AM DRY CLEANING COUNTER CLERK) Only the most recent of2 resultswithin the time period is included. EER PML/DANTE Translocation by Fish See Note 03/17/2024 4:[address] [facility] [employer] ([facility]) Comment: Authorized individuals can access the [employer] Enhanced Report using the following link: [email or web address] Performed By: [facility] [address] [place] [id number] Community Mental Health Social Worker: Uche Morley MD, PhD CLIA Number: [id number] PML/DANTE Translocation by FISH See Note 03/17/2024 4:[address] [facility] [employer] ([facility]) Comment: Test Performed: PML-DANTE Translocation by FISH (FISH PML) Specimen Type: Bone Marrow Indication for Testing: MDS RESULT Normal FISH Result t(15;17) PML::DANTE ??Fusion: ??not detected INTERPRETATION There was no evidence of PML::DANTE fusion due to translocation (15;17)(q24;q21). This analysis was performed with the PML/DANTE probes (Electron Database). A total of 200 cells were scored. Cytogenomic Nomenclature (ISCN): nuc nereyda(PML,DANTE)x2[200' This result has been reviewed and approved by Nabila Gonzalez, PhD, [facility] A portion of this analysis was performed at the following location(s): [facility] [employer] [facility] [place]#2 INTERPRETIVE INFORMATION: PML/DANTE Translocation by FISH This test was developed and its performance characteristics determined by [facility] [employer]. It has not been cleared or approved by the US Food and Drug Administration. This test was performed in a CLIA certified laboratory and is intended for clinical purposes. Other BONE MARROW SPECIMEN / Unknown Collection / Unknown 03/15/2024 9:05 AM DRY CLEANING COUNTER CLERK 03/15/2024 9:30 AM DRY CLEANING COUNTER CLERK Rodo Perez MD LAB - PATHOLOG Y/CYTOLOGY ORDERABLES [facility] [employer] [facility]) [address] [place] [address], [facility] * CHROMOSOME ANALYSIS BONE MARROW PANEL (03/15/2024 9:05 AM DRY CLEANING COUNTER CLERK) Chromosome Analysis Bone Marrow See Note Normal 03/22/2024 11:01 AM DRY CLEANING COUNTER CLERK [facility] ([facility]) Comment: Test Performed: Chromosome Analysis [...] study. NOTE: Concurrent FISH PML performed under [facility] accession [id number] was NORMAL. FISHAML and FISH MDS P are PENDING and will be reported under [facility] accessions [id number] and [id number]. This result has been reviewed and approved by Randall Yun, PhD, [facility] A portion of this analysis was performed at the following location(s): [facility] -[place]#2 [facility]-[place]#3 [facility]-[place]#4 [facility]-[place]#1 INTERPRETIVE INFORMATION: Chromosome Analysis, Bone Marrow This test was developed and its performance characteristics determined by [facility]. It has not been cleared or approved by the US Food and Drug Administration. This test was performed in a CLIA certified laboratory and is intended for clinical purposes. EER Chromosome Analysis Bone Marrow See Note 03/22/2024 11:01 AM DRY CLEANING COUNTER CLERK [facility] [employer] ([facility]) Comment: Authorized individuals can access the [facility] Enhanced Report using the following link: [email or web address] Performed By: [facility] [address] [place] [address] Community Mental Health Social Worker: Uche Morley MD, PhD CLIA Number: [id number] Bone marrow BONE MARROW SPECIMEN / Unknown 03/15/2024 9:05 AM DRY CLEANING COUNTER CLERK 03/15/2024 9:30 AM DRY CLEANING COUNTER CLERK Rodo Perez MD LAB - PATHOLOG Y/CYTOLOGY ORDERABLES [facility]) [address] [place] [address], [facility] * FLOW CYTOMETRY BLOOD PROFILE (03/14/2024 10:32 AM DRY CLEANING COUNTER CLERK) Case Report Flow Cytometry ?Case: [id number] ? Authorizing Provider: ??Ghanshyam Dewey PA-C ? Collected: ? 03/14/2024 10:32 AM ? Ordering Location: ? [facility] ? Received: ?03/14/2024 01:49 PM ? Pathologist: ? Angeles Rosado MD ? Specimen: ?Blood ? 03/14/2024 4:58 PM [facility] Final Diagnosis Peripheral blood, flow cytometric immunophenotypic analysis: - 1.2% myeloblasts detected - No evidence of a monoclonal B-cell population - See interpretation 03/14/2024 4:58 PM [facility] Flow Cytometry Results Differential Result Comment WBC Count /uL 1,200 Total Viability % 100.0 Lymphocytes % 80 Dim CD45 Region % 4 Monocytes % 4 Granulocytes % 13 03/14/2024 4:58 PM [facility] Flow Cytometry Interpretation Viability: 100% B-cells: polytypic, kappa:lambda ratio 1.1:1. Blasts: 1.2% of events are myeloblasts. Monocytes are mature. A peripheral blood smear prepared from the flow cytometry specimen has been reviewed for billing and quality technician purposes. 03/14/2024 4:58 PM [facility] Reason for test MDS (myelodysplastic syndrome) (HCC) 238.75 03/14/2024 4:58 PM [facility] Client Specimen ID # [id number] 03/14/2024 4:58 PM [facility] Pathologist Location at [facility] 03/14/2024 4:58 PM [facility] Disclaimer Test performed at [facility], [address] [place] [address], [address]. *The established laboratory minimum viability is 70%. [...] high complexity clinical testing. 03/14/2024 4:58 PM [facility] Embedded Images 4:58 PM [facility] Number of markers 19 were performed. A-2 Flow CD10 A-3 Flow CD13 A-5 Flow CD20 A-11 Flow CD2 A-13 Flow CD14 A-16 Flow CD117 A-17 Flow CD11b A-18 Flow CD11c A-1 Flow CD5 A-4 Flow CD19 A-6 Flow CD33 A-7 Flow CD34 A-8 Flow CD45 A-12 Flow CD7 A-14 Flow CD56 A-15 Flow CD64 A-9 Mosheim+CD19+ A-10 Lambda+CD19+ A-19 Flow HLA-DR 03/14/2024 4:58 PM [facility] Blood BLOOD SPECIMEN / Unknown Lab Venipuncture / Unknown 03/14/2024 10:32 AM DRY CLEANING COUNTER CLERK 03/14/2024 1:49 PM DRY CLEANING COUNTER CLERK Ghanshyam Dewey PA-C LAB - PATHOLOGY/CYTO LOGY ORDERABLES [facility] [address] [place] [address], [facility] [phone] * CYTOMEGALOVIRUS (CMV) QUANTITATIVE PLASMA (03/13/2024 11:26 PM DRY CLEANING COUNTER CLERK) Pathologist [facility] CMV Quant by PCR, Interp Not detected Not detected 03/14/2024 9:00 AM DRY CLEANING COUNTER CLERK [facility] Blood BLOOD SPECIMEN / Unknown Venipuncture / Unknown 03/13/2024 11:26 PM DRY CLEANING COUNTER CLERK 03/13/2024 11:37 PM DRY CLEANING COUNTER CLERK Narrative [facility] - 03/14/2024 9:00 AM DRY CLEANING COUNTER CLERK The Cytomegalovirus (CMV) DNA analysis utilized a [...] Soler MD LAB - CHEMISTRY OR DERABLES [facility] [address] [place] [address], [facility] [phone] * QUINN-TOVAR VIRUS QUANT BLOOD STL (03/13/2024 11:26 PM DRY CLEANING COUNTER CLERK) Pathologist [facility] EBV Quant by PCR, Interp Not detected Not detected 03/14/2024 8:56 AM [facility]CRO[facility] Specimen Type Plasma 03/14/2024 8:56 AM [facility] Blood BLOOD SPECIMEN / Unknown Venipuncture / Unknown 03/13/2024 11:26 PM DRY CLEANING COUNTER CLERK 03/13/2024 11:37 PM DRY CLEANING COUNTER CLERK Narrative [facility]CRO[facility] - 03/14/2024 8:56 AM DRY CLEANING COUNTER CLERK The Quinn-Tovar viral (EBV) DNA analysis utilized [...] Soler MD LAB - CHEMISTRY OR DERABLES [facility] [address] [place], [place] [address], [facility] [phone] * D-DIMER (03/13/2024 11:26 PM DRY CLEANING COUNTER CLERK) D-Dimer Quantitative <0.27 <=0.50 mcg/mL FEU 03/14/2024 12:00 AM [facility] Comment: In the absence of [...] Unknown Venipuncture / Unknown 03/13/2024 11:26 PM DRY CLEANING COUNTER CLERK 03/13/2024 11:37 PM DRY CLEANING COUNTER CLERK Ted Soler MD LAB - COAGULATION ORDERABLES [address] [address], [facility] [phone] * FIBRINOGEN ACTIVITY (03/13/2024 11:26 PM DRY CLEANING COUNTER CLERK) [facility] Fibrinogen [place] 362 200 - 400 mg/dL 03/13/2024 11:59 PM DRY CLEANING COUNTER CLERK [facility] Blood BLOOD SPECIMEN / Unknown Venipuncture / Unknown 03/13/2024 11:26 PM DRY CLEANING COUNTER CLERK 03/13/2024 11:37 PM DRY CLEANING COUNTER CLERK Ted Soler MD LAB - COAGULATION ORDERABLES [address] [address], [facility] [phone] * FISH AML+MDS PANEL BLOOD OR BONE MARROW (03/04/2024 4:13 PM DRY CLEANING COUNTER CLERK) [facility] FISH AML with MDS, Therapy-Rltd AML See Note Normal 03/19/2024 4:32 PM DRY CLEANING COUNTER CLERK [employer] ([facility]) Comment: Test Performed: Acute Myelogenous [...] with the Therapy-Related AML panel probes D5S23/EGR1, D7Z1/A3E228, and MLL (KMT2A) ([employer]). A total of 200 cells were scored for each probe. Cytogenomic Nomenclature (ISCN): nuc nereyda(D5S23,EGR1,D7Z1,F9Q306,KMT2A)x2[200' This result has been reviewed and approved by Charles Pablo MD, [facility] INTERPRETIVE INFORMATION: AML with MDS, Therapy-Related AML, FISH This test was developed and its performance characteristics determined by [facility]. It has not been cleared or approved by the US Food and Drug Administration. This test was performed in a CLIA certified laboratory and is intended for clinical purposes. EER AML with MDS, Therapy-Rltd AML FISH See Note 03/19/2024 4:32 PM DRY CLEANING COUNTER CLERK [employer] ([facility]) Comment: Authorized individuals can access the [employer] Enhanced Report using the following link: [email or web address] Performed By: [facility] [address] [id number] Community Mental Health Social Worker: Uche Morley MD, PhD CLIA Number: [id number] Other BLOOD SPECIMEN / Unknown Collection / Unknown 03/04/2024 4:13 PM DRY CLEANING COUNTER CLERK 03/04/2024 4:23 PM DRY CLEANING COUNTER CLERK Cindy Garcia MD LAB - PATHOLOGY/CYTO LOGY ORDERABLES [employer] [facility]) [address] [id number], [facility] * CHROMOSOME ANALYSIS LEUKEMIA BLD (03/04/2024 4:13 PM DRY CLEANING COUNTER CLERK) Chromosome Analysis Leukemic Blood See Note Normal 03/23/2024 12:39 PM DRY CLEANING COUNTER CLERK [employer] [facility] ([facility]) Comment: Test Performed: Chromosome Analysis [...] FISH AML/PML and TAML MDS performed under [facility] accessions [id number] and [id number] were NORMAL. This result has been reviewed and approved by Margaret Roberson, PhD, [facility] INTERPRETIVE INFORMATION: Chromosome Analysis, ?Leukemic Blood This test was developed and its performance characteristics determined by [employer]. It has not been cleared or approved by the US Food and Drug Administration. This test was performed in a CLIA certified laboratory and is intended for clinical purposes. EER Chromosome Analysis Leukemic See Note 03/23/2024 12:39 PM DRY CLEANING COUNTER CLERK [facility] [employer] ([facility]) Comment: Authorized individuals can access the [employer] Enhanced Report using the following link: [email or web address] Performed By: [facility] [address] [place] [address] Community Mental Health Social Worker: Uche Morley MD, PhD [place] Number: [id number] Blood BLOOD SPECIMEN / Unknown Lab Venipuncture / Unknown 03/04/2024 4:13 PM DRY CLEANING COUNTER CLERK 03/22/2024 5:28 PM DRY CLEANING COUNTER CLERK Cindy Garcia MD LAB - PATHOLOGY/CYTO LOGY ORDERABLES Performing Organization Address [facility]/ZIP Co de Phone Number [facility] [employer] [facility]) [address] [place], [place] [address] * HIV-1 HIV-2 ANTIBODY + HIV P24 AG PANEL (New on 08/24) (03/04/2024 4:13 PM DRY CLEANING COUNTER CLERK) HIV Antigen/Antibod y 1 & 2 Non-reacti ve Non-react carlos 03/04/2024 5:12 PM DRY CLEANING COUNTER CLERK [facility] Comment:No Laboratory eviden ce of HIV infection. Blood BLOOD SPECIMEN / Unknown Lab Venipuncture / Unknown 03/04/2024 4:13 PM DRY CLEANING COUNTER CLERK 03/04/2024 4:23 PM DRY CLEANING COUNTER CLERK Cindy Garcia MD LAB - CHEMISTRY CHELI MONREAL [facility] [address] [place] [address], [facility] [phone] * BCR-ABL1 CML+AML PCR QUANT PNL (03/04/2024 4:13 PM DRY CLEANING COUNTER CLERK) Interpretation TNP 03/13/2024 5:08 PM DRY CLEANING COUNTER CLERK [facility] ([facility]) Comment: Unable to obtain results. Repeated efforts to analyze this specimen have been unsuccessful. LOW CONTROL GENE COPY NUMBER INDICATED SPECIMEN DEGRADATION. Director Review Comment 5:08 PM DRY CLEANING COUNTER CLERK [facility] ([facility]) Comment: Dawood Sarabia, PhD, [facility] ?Director, Molecular Oncology ?[facility] Molecular Biology and Pathology ?[place] [address] ? Background Comment 03/13/2024 5:08 PM DRY CLEANING COUNTER CLERK [facility] ([facility]) Comment: This assay can detect [...] as indicated. Methodology Comment 03/13/2024 5:[address] [facility] ([facility]) Comment: Total RNA is isolated [...] developed and its performance characteristics determined by [employer]. It has not been cleared or approved by the Food and Drug Administration. Blood BLOOD SPECIMEN / Unknown Lab Venipuncture / Unknown 03/04/2024 4:13 PM DRY CLEANING COUNTER CLERK 03/04/2024 4:24 PM DRY CLEANING COUNTER CLERK Narrative [facility] ([facility]) - 03/13/2024 5:08 PM DRY CLEANING COUNTER CLERK Performed at: ??01 - [facility] [address] [employer] [facility], [place] ??[phone] Supervisor Porcelain Department: [facility], located [facility], Phone: ??[phone] Performed at: ?? - [facility] [address] [place] ??[id number] Supervisor Porcelain Department: [facility], located [facility], Phone: ??[phone] Cindy Garcia MD LAB - CHEMISTRY CHELI MONREAL Performing Organization Address City/[facility]/ZIP Co de Phone Number [facility]) [address] [place] [phone] * TSH REFLEX FREE T4 (03/04/2024 4:13 PM DRY CLEANING COUNTER CLERK) Pathologist [facility] TSH 0.961 0.350 - 4.940 uIU/mL 03/04/2024 5:29 PM DRY CLEANING COUNTER CLERK [facility] Blood BLOOD SPECIMEN / Unknown Lab Venipuncture / Unknown 03/04/2024 4:13 PM DRY CLEANING COUNTER CLERK 03/04/2024 4:27 PM DRY CLEANING COUNTER CLERK Cindy Garcia MD LAB - CHEMISTRY CHELI MONREAL [address] [address], [facility] [phone] * RHEUMATOID FACTOR BLOOD QUANTITATIVE (03/04/2024 4:13 PM DRY CLEANING COUNTER CLERK) Pathologist [facility] Rheumatoid Factor <15 <30 IU/mL 03/04/2024 4:57 PM DRY CLEANING COUNTER CLERK [facility] Rheumatoid Factor Screen Negative Negative 03/04/2024 4:57 PM DRY CLEANING COUNTER CLERK [facility] Blood BLOOD SPECIMEN / Unknown Lab Venipuncture / Unknown 03/04/2024 4:13 PM DRY CLEANING COUNTER CLERK 03/04/2024 4:23 PM DRY CLEANING COUNTER CLERK Cindy Garcia MD LAB - CHEMISTRY CHELI MONREAL [facility] [address] [place] [address], [facility] [phone] * CYTOMEGALOVIRUS ANTIBODY IGG BLOOD (03/04/2024 4:13 PM DRY CLEANING COUNTER CLERK) Cytomegalovirus Antibody IgG <0.20 <=0.70 U/mL 03/05/2024 9:27 PM DRY CLEANING COUNTER CLERK [employer] ([facility]) Comment: INTERPRETIVE INFORMATION: Cytomegalovirus Antibody, [...] laboratory at the same time. Performed By: [facility] [address] [place] [address] Community Mental Health Social Worker: Uche Morley MD, PhD CLIA Number: [id number] Blood BLOOD SPECIMEN / Unknown Lab Venipuncture / Unknown 03/04/2024 4:13 PM DRY CLEANING COUNTER CLERK 03/04/2024 4:23 PM DRY CLEANING COUNTER CLERK Cindy Garcia MD LAB - CHEMISTRY CHELI MONREAL [facility]) [address] * C-REACTIVE PROTEIN (03/04/2024 4:13 PM DRY CLEANING COUNTER CLERK) [facility] C-Reactive Protein 0.5 <=0.5 mg/dL 03/04/2024 4:56 PM DRY CLEANING COUNTER CLERK [facility] Blood BLOOD SPECIMEN / Unknown Lab Venipuncture / Unknown 03/04/2024 4:13 PM DRY CLEANING COUNTER CLERK 03/04/2024 4:27 PM DRY CLEANING COUNTER CLERK Cindy Garcia MD LAB - CHEMISTRY CHELI MONREAL Performing Organization Address City/[facility]/ZIP Co de Phone Number [facility]ORY [address] [address], [facility] [phone] * MARLINE BLOOD SCREEN W/REFLEX TITER (03/04/2024 4:13 PM DRY CLEANING COUNTER CLERK) [facility] MARLINE IgG None Detected None Detected 03/05/2024 11:42 PM DRY CLEANING COUNTER CLERK [facility] ([facility]) Comment: If suspicion of connective tissue disease is strong and MARLINE EIA is negative, consider testing for MARLINE by IFA ([id number]). INTERPRETIVE INFORMATION: Anti-Nuclear Antibodies (MARLINE), IgG by TOÑA Antinuclear Antibodies (MARLINE), IgG by TOÑA: MARLINE specimens are screened using enzyme-linked immunosorbent assay (TOÑA) methodology. All TOÑA results reported as Detected are further tested by indirect fluorescent assay (IFA) using HEp-2 substrate with an IgG-specific conjugate. The MARLINE TOÑA screen is designed to detect antibodies against dsDNA, histones, SS-A (Ro), SS-B (La), Pimentel, Pimentel/FOUNDATION DIGGER, Scl-70, Mey-1, centromeric proteins, other antigens extracted from the HEp-2 cell nucleus. MARLINE TOÑA assays have been reported to have lower sensitivities than MARLINE IFA for systemic autoimmune rheumatic diseases (SARD). Negative results do not necessarily rule out SARD. Performed By: [facility] [address] [place] [address] Community Mental Health Social Worker: Uche Morley MD, PhD CLIA Number: [id number] Blood BLOOD SPECIMEN / Unknown Lab Venipuncture / Unknown 03/04/2024 4:13 PM DRY CLEANING COUNTER CLERK 03/04/2024 4:23 PM DRY CLEANING COUNTER CLERK Cindy Garcia MD LAB - CHEMISTRY CHELI MONREAL Performing Organization Address [facility] de Phone Number [facility] [employer] [facility]) [address] [place] [address] * ZINC BLOOD (03/04/2024 4:13 PM DRY CLEANING COUNTER CLERK) Zinc 62.4 60.0 - 120.0 ug/dL 03/06/2024 6:35 AM DRY CLEANING COUNTER CLERK [facility] [employer] ([facility]) Comment: INTERPRETIVE INFORMATION: Zinc, Serum [...] developed and its performance characteristics determined by [facility]. It has not been cleared or approved by the US Food and Drug Administration. This test was performed in a CLIA certified laboratory and is intended for clinical purposes. Performed By: [facility] [address] [place] [address] Community Mental Health Social Worker: Uche Morley MD, PhD CLIA Number: [id number] Blood BLOOD SPECIMEN / Unknown Lab Venipuncture / Unknown 03/04/2024 4:13 PM DRY CLEANING COUNTER CLERK 03/04/2024 4:23 PM DRY CLEANING COUNTER CLERK Cindy Garcia MD LAB - CHEMISTRY CHELI MONREAL Performing Organization Address [facility] Co de Phone Number [facility]) [address] * COPPER BLOOD (03/04/2024 4:13 PM DRY CLEANING COUNTER CLERK) Copper 108.5 70.0 - 140.0 ug/dL 03/06/2024 6:35 AM DRY CLEANING COUNTER CLERK [facility] ([facility]) Comment: INTERPRETIVE INFORMATION: Copper, Serum [...] developed and its performance characteristics determined by [facility] [employer]. It has not been cleared or approved by the US Food and Drug Administration. This test was performed in a CLIA certified laboratory and is intended for clinical purposes. Performed By: [facility] [employer] [address] [place] [address] Community Mental Health Social Worker: Uche Morley MD, PhD CLIA Number: [id number] Blood BLOOD SPECIMEN / Unknown Lab Venipuncture / Unknown 03/04/2024 4:13 PM DRY CLEANING COUNTER CLERK 03/04/2024 4:23 PM DRY CLEANING COUNTER CLERK Cindy Garcia MD LAB - CHEMISTRY CHELI MONREAL [facility]) [address] [place], [place] [address] * ERYTHROCYTE SEDIMENTATION RATE (03/04/2024 4:13 PM DRY CLEANING COUNTER CLERK) Erythrocyte Sedimentation Rate Westergren 14 0 - 20 MM/HR 03/04/2024 5:10 PM DRY CLEANING COUNTER CLERK [facility] Blood BLOOD SPECIMEN / Unknown Lab Venipuncture / Unknown 03/04/2024 4:13 PM DRY CLEANING COUNTER CLERK 03/04/2024 4:27 PM DRY CLEANING COUNTER CLERK Cindy Garcia MD LAB - HEMATOLOGY ORD ERACAROL [address] [address], [facility] [phone] * HEPATITIS B SURFACE ANTIBODY (03/04/2024 4:13 PM DRY CLEANING COUNTER CLERK) [facility] Hepatitis B Virus Surface Antibody Non-react carlos Non-react carlos 03/04/2024 5:12 PM DRY CLEANING COUNTER CLERK [facility] Comment: < 8 mIU/mL Hepatitis B surface Antibody (HBsAb). Nonreactive for HBsAb - individual is considered not immune to Hepatitis B Virus infection. Hepatitis B Surface Antibody Quantitative 0.3 <8.0 mIU/mL 03/04/2024 5:12 PM DRY CLEANING COUNTER CLERK [facility] Comment: Hepatitis B Surface Antibody Numeric Result Interpretation: ? Nonreactive: ?<8.0 mIU/mL ? Indeterminate: ??8.0 - 12.0 mIU/mL ? Reactive: ?>12.0 mIU/mL ? Blood BLOOD SPECIMEN / Unknown Lab Venipuncture / Unknown 03/04/2024 4:13 PM DRY CLEANING COUNTER CLERK 03/04/2024 4:23 PM DRY CLEANING COUNTER CLERK Cindy Garcia MD LAB - CHEMISTRY CHELI MONREAL Performing Organization Address City/[facility]/ZIP Co de Phone Number [address] [address], [facility] [phone] * HEPATITIS B CORE ANTIBODY TOTAL (03/04/2024 4:13 PM DRY CLEANING COUNTER CLERK) [facility] HBc Antibody Total Non-reacti ve Non-reacti ve 03/04/2024 5:12 PM DRY CLEANING COUNTER CLERK [facility] Blood BLOOD SPECIMEN / Unknown Lab Venipuncture / Unknown 03/04/2024 4:13 PM DRY CLEANING COUNTER CLERK 03/04/2024 4:23 PM DRY CLEANING COUNTER CLERK Cindy Garcia MD LAB - CHEMISTRY CHELI MONREAL [address] [address], [place] [phone] * FOLATE (03/04/2024 4:13 PM DRY CLEANING COUNTER CLERK) Folate 17.7 7.0 - 31.4 ng/mL 03/04/2024 5:29 PM DRY CLEANING COUNTER CLERK [facility] Blood BLOOD SPECIMEN / Unknown Lab Venipuncture / Unknown 03/04/2024 4:13 PM DRY CLEANING COUNTER CLERK 03/04/2024 4:27 PM DRY CLEANING COUNTER CLERK Cindy Garcia MD LAB - CHEMISTRY CHELI MONREAL [address] [address], [facility] [phone] * VITAMIN B12 (03/04/2024 4:13 PM DRY CLEANING COUNTER CLERK) Vitamin B12 524 213 - 816 pg/mL 03/04/2024 5:29 PM [facility] Blood BLOOD SPECIMEN / Unknown Lab Venipuncture / Unknown 03/04/2024 4:13 PM DRY CLEANING COUNTER CLERK 03/04/2024 4:27 PM DRY CLEANING COUNTER CLERK Cindy Garcia MD LAB - CHEMISTRY CHELI MONREAL [address] [address], [place] [phone] * (ABNORMAL) IRON + TRANSFERRIN PANEL [w/Transferrin Sat % + TIBC] (03/04/2024 4:13 PM DRY CLEANING COUNTER CLERK) Iron 31(L) 50 - 175 ug/dL 03/04/2024 4:53 PM [facility] Transferrin 257 174 - 382 mg/dL 03/04/2024 4:53 PM [facility] Transferrin Saturation % 10(L) 16 - 50 % 03/04/2024 4:53 PM [facility] TIBC Calculated 321 240 - 450 ug/dL 03/04/2024 4:53 PM [facility] Blood BLOOD SPECIMEN / Unknown Lab Venipuncture / Unknown 03/04/2024 4:13 PM DRY CLEANING COUNTER CLERK 03/04/2024 4:23 PM DRY CLEANING COUNTER CLERK Cidny Garcia MD LAB - CHEMISTRY CHELI MONREAL [facility] [address] [place] [address], [facility] [phone] * HEPATITIS C ANTIBODY (03/04/2024 4:13 PM DRY CLEANING COUNTER CLERK) [facility] Hepatitis C Antibody Non-react carlos Non-reac tive 03/04/2024 5:12 PM DRY CLEANING COUNTER CLERK [facility] Comment:Hepatitis C Antibody screen indicates no serologic evidence of past or current infection with Hepatitis C Virus. Patients with unexplained liver disease who are immunocompromised or suspected of having acute Hepatitis C infection may benefit from Nucleic Acid Test (YUSRA) for Hepatitis C Viral RNA to confirm Hepatitis C status. Blood BLOOD SPECIMEN / Unknown Lab Venipuncture / Unknown 03/04/2024 4:13 PM DRY CLEANING COUNTER CLERK 03/04/2024 4:23 PM DRY CLEANING COUNTER CLERK Cindy Garcia MD LAB - CHEMISTRY CHELI MONREAL Performing Organization Address City/[facility]/ZIP Co de Phone Number [facility] [address] [place] [address], [place] [phone] * (ABNORMAL) FERRITIN (03/04/2024 4:13 PM DRY CLEANING COUNTER CLERK) [facility] Ferritin 21(L) 22 - 275 ng/mL 03/04/2024 5:12 PM DRY CLEANING COUNTER CLERK [facility] Blood BLOOD SPECIMEN / Unknown Lab Venipuncture / Unknown 03/04/2024 4:13 PM DRY CLEANING COUNTER CLERK 03/04/2024 4:23 PM DRY CLEANING COUNTER CLERK Cindy Garcia MD LAB - CHEMISTRY CHELI MONREAL [address] [address], [place] [phone] from Last 3 Months Advance Directives * Full Code (Latest Code Status on File) Date Activated Date Inactivated Comments 03/13/2024 9:41 PM 03/23/2024 2:56 PM Care Teams Gang Drill Press Operator Relationship Specialty Start Date End Date Timothy Banks MD [address] [place] [address] PCP - General 10/19/18 Cindy Garcia MD [address] [place] [address] Foam Caster/Oncologis t Hematology and Oncology 03/24/24
--- OUTSIDE RECORDS SUMMARY | 2024-04-11 13:50 | XMS_ITS | Encounter Summary ---
Author Organization [facility] Address [address] [place] [address] Care Team Providers Care Research Physician Name Role Phone Timothy Banks MD Primary Care Provider [phone] Cindy Garcia MD Unavailable Encounter Details Date Type Department Care Team (Late st Contact Info) Description 04/01/2024 Orders Only [facility] [address] [place] [address] Cindy Garcia MD [address] [place], [place] [phone] Tumor lysis syndrome (HCC) Social History Tobacco [...] hard at all 03/13/2024 [facility] [place] [facility] Occupat ional Health - Occupational Stress [...] Sex Assigned at Male 03/05/2024 8:04 AM PRODUCTION TECH Gender Identity Male 03/05/2024 8:04 AM PRODUCTION TECH Sexual Orientation Straight 03/05/2024 8: 04 AM PRODUCTION TECH documented as of this encounter Functional Status [...] st Contact Info) Description 04/15/2024 8:30 AM PRODUCTION TECH Hospital Encounter [facility] [address] [place] [address] 04/16/2024 9:00 AM PRODUCTION TECH Hospital Encounter [facility] [address] [place] [address] 04/17/2024 8:30 AM PRODUCTION TECH Appointment [facility] [address] [place] [address] 04/18/2024 9:30 AM PRODUCTION TECH Appointment [facility] [address] [place] [address] 04/18/2024 10:30 AM PRODUCTION TECH Office Visit [facility] - Hematology/Oncology [address] [place] [phone] Cindy Garcia MD [address] [place] [address] 04/19/2024 9:00 AM PRODUCTION TECH Appointment [facility] [address] [place] [address] 05/13/2024 9:00 AM PRODUCTION TECH Appointment [facility] [address] [place] [address] 05/28/2024 10:00 AM PRODUCTION TECH Office Visit [facility] - Nephrology [address] [place] [phone] Cindy Garcia MD [address] [place] [address] Santiago Meraz MD [address] [place] [address] Scheduled Orders Name Type Priority Associated Diagnoses Orde r Schedule [facility] BLOOD Lab Routine Tumor lysis syndrome (HCC) 1 Occurrences starting 04/01/2024 until 04/26/2025 documented as of this encounter Results * PHOSPHORUS BLOOD (04/01/2024 3:12 PM PRODUCTION TECH) Phosphorus 2.9 2.8 - 5.1 mg/dL 04/01/2024 5:52 PM PRODUCTION TECH [facility] Blood BLOOD SPECIMEN / Unknown Lab Venipuncture / Unknown 04/01/2024 3:12 PM PRODUCTION TECH 04/01/2024 5:30 PM PRODUCTION TECH Cindy Garcia MD LAB - CHEMISTRY CHELI MONREAL [facility] [address] [place] [address], [place] [phone] * URIC ACID BLOOD (04/01/2024 3:12 PM PRODUCTION TECH) Uric Acid 4.0 3.5 - 7.2 mg/dL 04/01/2024 5:52 PM PRODUCTION TECH [facility] Blood BLOOD SPECIMEN / Unknown Lab Venipuncture / Unknown 04/01/2024 3:12 PM PRODUCTION TECH 04/01/2024 5:30 PM PRODUCTION TECH Cindy Garcia MD LAB - CHEMISTRY CHELI MONREAL Performing Organization Address City/[facility]/ZIP Co de Phone Number [facility] [address] [place] [address], [place] [phone] documented in this encounter Visit Diagnoses Diagnosis Tumor lysis syndrome (HCC)- Primary Tumor lysis syndrome documented in this encounter Care Teams Research Physician Relationship Specialty Start Date End Date Timothy Banks MD [address] [place] [phone] PCP - General 10/19/18 Cindy Garcia MD [address] [place] [address] Residential Subcontractor/Oncologis t Hematology and Oncology 03/24/24 documented as of this encounter
--- OUTSIDE RECORDS SUMMARY | 2024-04-11 13:50 | XMS_ITS | Encounter Summary ---
Author Organization [facility] Address [address] [place] [address] Care Team Providers Care Fish Hatchery Manager Name Role Phone Timothy Banks MD Primary Care Provider [phone] Cindy Garcia MD Unavailable Reason for Visit * Reason Onset Date Comments Transitional Care 03/25/2024 Encounter Details Date Type Department Care Team (Late st Contact Info) Description 03/25/2024 Telephone Transitional Care at [address] [address] Adamaris Jesus, leasing manager Social History Tobacco Use Types Packs/Day Years [...] and heating? Not hard at all 03/13/2024 [facility] [place] of Occupat ional Health - Occupational Stress [...] time in the past 12 m [facility], were you homeless or living in a skilled nursing (including now)? No 03/13/2024 Sex and Gender Information Value Date Recorded Sex Assigned at Male 03/05/2024 8:04 AM STRAIGHTENING MACHINE OPERATOR Gender Identity Male 03/05/2024 8:04 AM STRAIGHTENING MACHINE OPERATOR Sexual Orientation Straight 03/05/2024 8: 04 AM STRAIGHTENING MACHINE OPERATOR documented as of this encounter Functional [...] telephone: Patient with recent IP discharge from [facility] on 03/23/2024 . This RN contacted Russ by telephone [phone] to complete 48 hour post- discharge follow-up [...] time. Patient was encouraged to call this policy writer typist with questions, concerns, barriers to care, and/or additional resourcesif needed. Patient verbalized understanding and agreement with plan. This RN will continue to provide post- discharge monitoring until patient completes [facility] follow up. Call Duration: 10 min Adamaris Jesus RN, [facility] Office: [phone] 03/25/2024 IGHTENING MACHINE OPERATOR documented in this encounter Plan of Treatment Upcoming Encounters Date Type Department Care Team (Late st Contact Info) Description 04/15/2024 8:30 AM STRAIGHTENING MACHINE OPERATOR Hospital Encounter [facility] [address] [place] [address] 04/16/2024 9:00 AM STRAIGHTENING MACHINE OPERATOR Hospital Encounter [facility] [address] [place] [address] 04/17/2024 8:30 AM STRAIGHTENING MACHINE OPERATOR Appointment [facility] [address] [place] [address] 04/18/2024 9:30 AM STRAIGHTENING MACHINE OPERATOR Appointment [facility] [address] [place] [address] 04/18/2024 10:30 AM STRAIGHTENING MACHINE OPERATOR Office Visit [facility] - Hematology/Oncology [address] [place] [phone] Cindy Garcia MD [address] [place] [address] 04/19/2024 9:00 AM STRAIGHTENING MACHINE OPERATOR Appointment [facility] [address] [place] [address] 05/13/2024 9:00 AM STRAIGHTENING MACHINE OPERATOR Appointment [facility] [address] [place] [address] 05/28/2024 10:00 AM STRAIGHTENING MACHINE OPERATOR Office Visit [facility] - Nephrology [address] [place] [address] Cindy Garcia MD [address] [place] [address] Santiago Meraz MD [address] [place] [address] documented as of this encounter Visit Diagnoses Not on filedocumented in this encounter Care Teams Fish Hatchery Manager Relationship Specialty Start Date End Date Timothy Banks MD [address] [place] [phone] PCP - General 10/19/18 Cindy Garcia MD [address] [place] [address] Dog Day Care Attendant/Oncologis t Hematology and Oncology 03/24/24 documented as of this encounter
--- OUTSIDE RECORDS SUMMARY | 2024-04-11 13:50 | XMS_ITS | Encounter Summary ---
Author Organization [facility] Address [address] [place] [address] Care Team Providers Care Weed Science Research Technician Name Role Phone Timothy Banks MD Primary Care Provider [phone] Cindy Garcia MD Unavailable Encounter Details Date Type Department Care Team (Late st Contact Info) Description 03/25/2024 Orders Only [facility] [address] [place] [address] Ekta Ferro, AIR ROUTE CONTROLLER-VIOLIN RESTORER [address] [place] [address] Social History Tobacco Use Types [...] and heating? Not hard at all 03/13/2024 [facility] [place] of Occupat ional Health - Occupational Stress [...] any time in the past 12 m [facility], were you homeless or living in a longterm (including now)? No 03/13/2024 Sex and Gender Information Value Date Recorded Sex Assigned at Male 03/05/2024 8:04 AM NEW CAR MAKE READY MECHANIC Gender Identity Male 03/05/2024 8:04 AM NEW CAR MAKE READY MECHANIC Sexual Orientation Straight 03/05/2024 8: 04 AM NEW CAR MAKE READY MECHANIC documented as of this encounter Functional Status [...] st Contact Info) Description 04/15/2024 8:30 AM NEW CAR MAKE READY MECHANIC Hospital Encounter [facility] [address] [place] [address] 04/16/2024 9:00 AM NEW CAR MAKE READY MECHANIC Hospital Encounter [facility] [address] [place] [address] 04/17/2024 8:30 AM NEW CAR MAKE READY MECHANIC Appointment [facility] [address] [place] [address] 04/18/2024 9:30 AM NEW CAR MAKE READY MECHANIC Appointment [facility] [address] [place] [phone] 04/18/2024 10:30 AM NEW CAR MAKE READY MECHANIC Office Visit [facility] - Hematology/Oncology [address] [place] [phone] Cindy Garcia MD [address] [place] [address] 04/19/2024 9:00 AM NEW CAR MAKE READY MECHANIC Appointment [facility] [address] [place] [address] 05/13/2024 9:00 AM NEW CAR MAKE READY MECHANIC Appointment [facility] [address] [place] [address] 05/28/2024 10:00 AM NEW CAR MAKE READY MECHANIC Office Visit [facility] - Nephrology [address] [place] [phone] Cindy Garcia MD [address] [place] [address] Santiago Meraz MD [facility] [place] [address] documented as of this encounter Visit Diagnoses Not on filedocumented in this encounter Care Teams Weed Science Research Technician Relationship Specialty Start Date End Date Timothy Banks MD [address] [place] [address] PCP - General 10/19/18 Cindy Garcia MD [address] [place] [address] Concrete Worker/Oncologis t Hematology and Oncology 03/24/24 documented as of this encounter
--- OUTSIDE RECORDS SUMMARY | 2024-04-11 13:50 | XMS_ITS | Encounter Summary ---
Author Organization [facility] Address [address] [place] [address] Care Team Providers Care Freight Manager Name Role Phone Timothy Banks MD Primary Care Provider [phone] Cindy Ambriz MD Unavailable Reason for Referral * Radiology Services (Routine) - Closed Specialty Diagnoses / Procedures Referred By Marilee t Referred To Contact Interventional Radiology Diagnoses 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) Procedures IR Tim Cath Insert Cindy Ambriz MD [address] [place] [address] Referral ID Status Reason Start Date Expiration Date Visits Re quested Visits Authorized [id number] Closed 04/01/2024 04/01/2025 1 1 S DESIGNER * OP/Amb RFL Auth (Routine) - Pending Review Specialty Diagnoses / Procedures Referred By Marilee gautam Referred To Contact Cardiology Diagnoses 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) Procedures EKG 12-LEAD - HOSPITAL PERFORMED Cindy Ambriz MD [address] [place] [address] [facility] Ekg/Holter [address] [place] [address] Referral ID Status Reason Start Date Expiration Date V isits Requested Visits Authorized [id number] Pending Review 04/01/2024 04/01/2025 1 1 S DESIGNER Reason for Visit * Consult, Test & Treat (Routine) - Pending Review Specialty Diagnoses / Procedures Referred By Contshakila t Referred To Contact Hematology and Oncology / Oncology-Medical Diagnoses Acute myeloid leukemia with multilineage dysplasia, 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 Not hard at all 03/13/2024 [facility] [place] of Occupat ional Health - Occupational Stress [...] were you homeless or living in a fpc (including now)? No 03/13/2024 Sex and Gender Information Value Date Recorded Sex Assigned at Male 03/05/2024 8:04 AM PARTS DESIGNER Gender Identity Male 03/05/2024 8:04 AM PARTS DESIGNER Sexual Orientation Straight 03/05/2024 8: 04 AM PARTS DESIGNER documented as of this encounter Last Filed Vital Signs Vital Sign Reading Time Taken Comments Blood Pressure 127/67 04/01/2024 1:56 PM PARTS DESIGNER Pulse 66 04/01/2024 1:56 PM PARTS DESIGNER Temperature 36.7 ??C (98.1 ??F) 04/01/2024 1:56 PM CS T Respiratory Rate 18 04/01/2024 1:56 PM PARTS DESIGNER Oxygen Saturation 99% 04/01/2024 1:56 PM PARTS DESIGNER Inhaled Oxygen Concentration - - Weight 99 kg (218 lb 4.8 oz) 04/01/2024 1:56 PM PARTS DESIGNER Height - - Body Mass Index 29.61 03/15/2024 12:17 PM PARTS DESIGNER documented in this encounter Functional Status Functional [...] lives in [place], 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; enjoys travel and previously gold (neuropathy), [...] -2004: DVT/PE following hiatal hernia repair s/p [place] filter placement; warfarin x6 mos -2005: RLE [...] PT/OT: -no current issues Renal/electrolytes/acid-base: -CKD stage III-->renal referral placed -noted GOLDY (also when hospitalized, though uric acid normalized now)-->advised to receive 1L NS) -can check epo at next visit -tls: c/w allopurinol -elytes: wnl -g6pd: check Rheum/: -neg w/u, performed for neutropenia, both at [facility] and at [facility] Code status: not addressed at this visit Dispo: 04/15 for C2 S DESIGNER documented in this encounter Miscellaneous Notes * Addendum Note - Cindy Ambriz MD - 04/02/2024 12:43 PM CSTAddended by: CINDY AMBRIZ on: 04/02/2024 12:43 PM Modules accepted: Orders S DESIGNER documented in this encounter Plan of Treatment Upcoming Encounters Date Type Department Care Team (Late st Contact Info) Description 04/15/2024 8:30 AM PARTS DESIGNER Hospital Encounter [facility] [address] [place] [address] 04/16/2024 9:00 AM PARTS DESIGNER Hospital Encounter [facility] [address] [place] [address] 04/17/2024 8:30 AM PARTS DESIGNER Appointment [facility] [address] [place] [address] 04/18/2024 9:30 AM PARTS DESIGNER Appointment [facility] [address] [place] [address] 04/18/2024 10:30 AM PARTS DESIGNER Office Visit [facility] - Hematology/Oncology [address] [place] [phone] Cindy Ambriz MD [address] [place] [address] 04/19/2024 9:00 AM PARTS DESIGNER Appointment [facility] [address] [place] [address] 05/13/2024 9:00 AM PARTS DESIGNER Appointment [facility] [address] [place] [address] 05/28/2024 10:00 AM PARTS DESIGNER Office Visit [facility] - Nephrology [address] [place] [phone] Cindy Ambriz MD [address] [place] [address] Santiago Meraz MD [address] [place] [address] Pending Results Name Type Priority Associated Diagnoses Date /Time IR Tim Cath Insert Imaging Routine 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) 04/11/2024 9:45 AM PARTS DESIGNER Scheduled Orders Name Type Priority Associated Diagnoses [...] Primary documented in this encounter Care Teams Freight Manager Relationship Specialty Start Date End Date Timothy Banks MD [address] [place] [address] PCP - General 10/19/18 Cindy Ambriz MD [address] [place] [address] Jury Consultant/Oncologis t Hematology and Oncology 03/24/24 documented as of this encounter
--- OUTSIDE RECORDS SUMMARY | 2024-04-11 13:50 | XMS_ITS | Encounter Summary ---
Author Organization [facility] Address [address] [place] [address] Care Team Providers Care Lean Six Sigma Senior Specialist Name Role Phone Timothy Banks MD Primary Care Provider [phone] Cindy Garcia MD Unavailable Encounter Details Date Type Department Care Team (Late st Contact Info) Description 04/01/2024 Orders Only [facility] [address] [place] [address] Cindy Garcia MD [address] [place] [address] 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 [...] and heating? Not hard at all 03/13/2024 [facility] [place] of Occupat ional Health - Occupational Stress [...] were you homeless or living in a usp (including now)? No 03/13/2024 Sex and Gender Information Value Date Recorded Sex Assigned at Male 03/05/2024 8:04 AM CONTRACTS ADVISOR Gender Identity Male 03/05/2024 8:04 AM CONTRACTS ADVISOR Sexual Orientation Straight 03/05/2024 8: 04 AM CONTRACTS ADVISOR documented as of this encounter Functional Status [...] st Contact Info) Description 04/15/2024 8:30 AM CONTRACTS ADVISOR Hospital Encounter [facility]] [address] [place] [address] 04/16/2024 9:00 AM CONTRACTS ADVISOR Hospital Encounter [facility] [address] [place] [address] 04/17/2024 8:30 AM CONTRACTS ADVISOR Appointment [facility] [address] [place] [address] 04/18/2024 9:30 AM CONTRACTS ADVISOR Appointment [facility] [address] [place] [address] 04/18/2024 10:30 AM CONTRACTS ADVISOR Office Visit [facility] - Hematology/Oncology [address] [place] [phone] Cindy Garcia MD [address] [place] [address] 04/19/2024 9:00 AM CONTRACTS ADVISOR Appointment [facility] [address] [place] [address] 05/13/2024 9:00 AM CONTRACTS ADVISOR Appointment [facility] [address] [place] [address] 05/28/2024 10:00 AM CONTRACTS ADVISOR Office Visit [facility] - Nephrology [address] [place] [address] Cindy Garcia MD [address] [place] [address] Santiago Meraz MD [address] [place] [address] documented as of this encounter Results * MAGNESIUM BLOOD (04/01/2024 3:12 PM CONTRACTS ADVISOR) [facility] Magnesium 2.1 1.6 - 2.6 mg/dL 04/01/2024 4:25 PM CONTRACTS ADVISOR [facility] Comment:Hemolysis detected i n this specimen. Hemolysis is known to cause elevations in this analyte. Caution should be exercised in the interpretation of this result. Recommend repeat testing if clinically indicated. Blood BLOOD SPECIMEN / Unknown Lab Venipuncture / Unknown 04/01/2024 3:12 PM CONTRACTS ADVISOR 04/01/2024 3:36 PM CONTRACTS ADVISOR Cindy Garcia MD LAB - CHEMISTRY CHELI [place] [facility] [address] [place] [id number], [place] [phone] * ERYTHROPOIETIN (04/01/2024 3:12 PM CONTRACTS ADVISOR) [facility] Erythropoietin 22 4 - 27 mU/mL 04/02/2024 11:36 AM CONTRACTS ADVISOR [facility] ([facility]) Comment: INTERPRETIVE INFORMATION: Erythropoietin Normal serum [...] may benefit from therapy with recombinant EPO ([facility] [phone],1989). Performed By: [employer] [address] [place] [address] Discharge Coordinator: Uche Morley MD, PhD CLIA Number: [id number] Blood BLOOD SPECIMEN / Unknown Lab Venipuncture / Unknown 04/01/2024 3:12 PM CONTRACTS ADVISOR 04/01/2024 3:22 PM CONTRACTS ADVISOR Cindy Garcia MD LAB - CHEMISTRY CHELI [place] [employer] [facility]) [address] [place] [address], [place] * SOLUBLE TRANSFERRIN RECEPTOR (04/01/2024 3:12 PM CONTRACTS ADVISOR) [facility] Soluble Transferrin Receptor 3.3 2.2 - 5.0 mg/L 04/02/2024 9:13 PM CONTRACTS ADVISOR [employer] ([facility]) Comment: INTERPRETIVE INFORMATION: Soluble Transferrin Receptor [...] ??High ? Normal ? High Performed By: [employer] [address] [place] [address] Discharge Coordinator: Uche Morley MD, PhD CLIA Number: [id number] Blood BLOOD SPECIMEN / Unknown Lab Venipuncture / Unknown 04/01/2024 3:12 PM CONTRACTS ADVISOR 04/01/2024 3:22 PM CONTRACTS ADVISOR Cindy Garcia MD LAB - CHEMISTRY [place]LI [place] [employer] [facility]) [address] [place] [address], [place] * (ABNORMAL) COMPREHENSIVE METABOLIC PANEL (04/01/2024 3:12 PM [facility]) BUN 16 7 - 26 mg/dL 04/01/2024 [...] [facility] BUN/Creatinine Ratio 13 7 - 23 03/11 4:25 PM [facility] Osmolality Calculated 292 275 - 295 mOsm/kg 04/01/2024 4:25 PM [facility] Albumin/Globulin Ratio 1.2 1.1 - 2.3 04/01/2024 4:25 PM [facility] eGFR by CKD-EPI 57(L) >=90 mL/min/1 .73 m2 04/01/2024 4:25 PM [facility] Blood BLOOD SPECIMEN / Unknown Lab Venipuncture / Unknown 04/01/2024 3:12 PM CONTRACTS ADVISOR 04/01/2024 3:36 PM CONTRACTS ADVISOR Cindy Garcia MD LAB - CHEMISTRY CHELI [facility] Organization Address City/State/ZIP Co de Phone Number [facility] [address] [place] [phone], [place] [phone] * (ABNORMAL) CBC W/ DIFFERENTIAL (04/01/2024 3:12 PM [facility]) WBC 0.8(LL) 4.0 - 10.7 x10E9/L 04/01/2024 [...] 150 - 420 x10E9/L 04/01/2024 5:17 PM [facility] MPV 10.8 7.8 - 11.4 fL 04/01/2024 5:17 PM [facility] Blood BLOOD SPECIMEN / Unknown Lab Venipuncture / Unknown 04/01/2024 3:12 PM CONTRACTS ADVISOR 04/01/2024 3:36 PM CONTRACTS ADVISOR Cindy Garcia MD LAB - HEMATOLOGY ORD ERABLES [facility] [address] [place] [address] [phone] documented in this encounter Visit Diagnoses Diagnosis 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
--- OUTSIDE RECORDS SUMMARY | 2024-04-11 13:50 | XMS_ITS | Encounter Summary ---
Author Organization [facility] Address [address] [place] [address] Care Team Providers Care Supervisor International Reservations Name Role Phone Timothy Banks MD Primary Care Provider [phone] Cindy Garcia MD Unavailable Encounter Details Date Type Department Care Team (Late st Contact Info) Description 03/25/2024 Orders Only [facility] - Hematology/Oncology [address] [place] [address] Cindy Garcia MD [address] [place] [address] Acute myeloid leuk w multilin [...] and heating? Not hard at all 03/13/2024 [facility] [place] of Occupat ional Health - Occupational Stress [...] time in the past 12 m [facility], were you homeless or living in a longterm (including now)? No 03/13/2024 Sex and Gender Information Value Date Recorded Sex Assigned at Male 03/05/2024 8:04 AM ASSOCIATE BUSINESS ANALYST Gender Identity Male 03/05/2024 8:04 AM ASSOCIATE BUSINESS ANALYST Sexual Orientation Straight 03/05/2024 8: 04 AM ASSOCIATE BUSINESS ANALYST documented as of this encounter Functional Status [...] st Contact Info) Description 04/15/2024 8:30 AM ASSOCIATE BUSINESS ANALYST Hospital Encounter [facility] [address] [place] [phone] 04/16/2024 9:00 AM ASSOCIATE BUSINESS ANALYST Hospital Encounter [facility] [address] [place] [phone] 04/17/2024 8:30 AM ASSOCIATE BUSINESS ANALYST Appointment [facility] [address] [place] [phone] 04/18/2024 9:30 AM ASSOCIATE BUSINESS ANALYST Appointment [facility] [address] [place] [phone] 04/18/2024 10:30 AM ASSOCIATE BUSINESS ANALYST Office Visit [facility] - Hematology/Oncology [address] [place] [phone] Cindy Garcia MD [address] [place] [address] 04/19/2024 9:00 AM ASSOCIATE BUSINESS ANALYST Appointment [facility] [address] [place] [phone] 05/13/2024 9:00 AM ASSOCIATE BUSINESS ANALYST Appointment [facility] [address] [place] [phone] 05/28/2024 10:00 AM ASSOCIATE BUSINESS ANALYST Office Visit [facility] - Nephrology [address] [place] [phone] Cindy Garcia MD [address] [place] [address] Santiago Meraz MD [address] [place] [address] Scheduled Orders Name Type Priority Associated Diagnoses Orde r Schedule CBC WITH DIFFERENTIAL Lab Routine Acute myeloid leuk w multilin dysplasia, 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) Two times a week for 40 Occurrences starting 03/25/2024 until 04/25/2025, 1 completed COMPREHENSIVE METABOLIC PANEL Lab Routine Acute myeloid leuk w multilin dysplasia, 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) Two times a week for 40 Occurrences starting 03/25/2024 until 04/25/2025, 1 completed documented as of this encounter Results * (ABNORMAL) COMPREHENSIVE METABOLIC PANEL (04/11/2024 10:54 AM [facility]) BUN 12 7 - 26 mg/dL 04/11/2024 1:41 PM [facility] Creatinine 1.09 0.71 - 1.16 mg/dL 04/11/2024 1:41 PM [facility] Sodium 142 136 - 145 mmol/L 04/11/2024 1:41 PM [facility] Potassium 3.5 3.5 - 4.5 mmol/L 04/11/2024 1:41 PM [facility] Chloride 110(H) 98 - 107 mmol/L 04/11/2024 1:41 PM [facility] CO2 22 22 - 29 mmol/L 04/11/2024 1:41 PM [facility] Glucose 130(H) 70 - 99 mg/dL 04/11/2024 1:41 PM [facility] Calcium 8.7 8.4 - 10.2 mg/dL 04/11/2024 1:41 PM [facility] Protein Total 5.8(L) 6.0 - 8.3 g/dL 04/11/2024 1:41 PM [facility] Albumin 3.2(L) 3.4 - 5.0 g/dL 04/11/2024 1:41 PM [facility] Bilirubin Total 1.0 0.2 - 1.2 mg/dL 04/11/2024 1:41 PM [facility] Alkaline Phosphatase 108 40 - 150 U/L 04/11/2024 1:41 PM [facility] ALT 19 5 - 55 U/L 04/11/2024 1:41 PM [facility] AST 16 5 - 34 U/L 04/11/2024 1:41 PM [facility] Anion Gap 10 6 - 16 04/11/2024 1:41 PM [facility] BUN/Creatinine Ratio 11 7 - 23 04/11/2024 1:41 PM [facility] Osmolality Calculated 296(H) 275 - 295 mOsm/kg 04/11/2024 1:41 PM [facility] Albumin/Globulin Ratio 1.2 1.1 - 2.3 04/11/2024 1:41 PM [facility] eGFR by CKD-EPI 69(L) >=90 mL/min/1.7 3 m2 04/11/2024 1:41 PM [facility] Blood BLOOD SPECIMEN / Unknown Venipuncture / Unknown 04/11/2024 10:54 AM ASSOCIATE BUSINESS ANALYST 04/11/2024 11:42 AM ASSOCIATE BUSINESS ANALYST Cindy Garcia MD LAB - CHEMISTRY CHELI MONREAL [facility] [address] [place] [address], [facility] [phone] * (ABNORMAL) CBC WITH DIFFERENTIAL (04/11/2024 10:54 AM ASSOCIATE BUSINESS ANALYST) WBC 0.2(LL) 4.0 - 10.7 x10E9/L 04/11/2024 12:38 PM [facility] Comment:No differential repo rted. WBC count <0.5 RBC Count 3.53(L) 4.30 - 5.80 x10E12/L 04/11/2024 12:38 PM [facility] Hemoglobin 10.0(L) 13.3 - 17.5 g/dL 04/11/2024 12:38 PM [facility] Hematocrit 30.4(L) 38.7 - 51.1 % 04/11/2024 12:38 PM [facility] MCV 86.1 80.0 - 98.0 fL 04/11/2024 12:38 PM [facility] MCH 28.3 26.7 - 33.6 pg 04/11/2024 12:38 PM [facility] MCHC 32.9 31.7 - 36.3 g/dL 04/11/2024 12:38 PM [facility] RDW-CV 18.3(H) 11.3 - 14.8 % 04/11/2024 12:38 PM [facility] Platelet Count 89(L) 150 - 420 x10E9/L 04/11/2024 12:38 PM [facility] MPV 9.8 7.8 - 11.4 fL 04/11/2024 12:38 PM ASSOCIATE BUSINESS ANALYST [facility] Blood BLOOD SPECIMEN / Unknown Venipuncture / Unknown 04/11/2024 10:54 AM ASSOCIATE BUSINESS ANALYST 04/11/2024 11:42 AM ASSOCIATE BUSINESS ANALYST Cindy Garcia MD LAB - HEMATOLOGY ORD ERABLES Performing Organization Address City/State/[facility] Co de Phone Number [facility] [address] [place] [address], [facility] [phone] documented in this encounter Visit Diagnoses Diagnosis Acute myeloid leuk w multilin dysplasia, 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
--- OUTSIDE RECORDS SUMMARY | 2024-04-11 13:50 | XMS_ITS | Encounter Summary ---
Author Organization [facility] Address [address] [facility] [place] [address] Care Team Providers Care Circulating Nurse Name Role Phone Timothy Banks MD Primary Care Provider [phone] Cindy Garcia MD Unavailable Encounter Details Date [...] and heating? Not hard at all 03/13/2024 [facility] of Occupat ional Health - Occupational Stress [...] any time in the past 12 m [facility], were you homeless or living in a retirement (including now)? No 03/13/2024 Sex and Gender Information Value Date Recorded Sex Assigned at Male 03/05/2024 8:04 AM OBSTETRIC ASSISTANT Gender Identity Male 03/05/2024 8:04 AM OBSTETRIC ASSISTANT Sexual Orientation Straight 03/05/2024 8: 04 AM OBSTETRIC ASSISTANT documented as of this encounter Functional [...] st Contact Info) Description 04/15/2024 8:30 AM OBSTETRIC ASSISTANT Hospital Encounter [facility] [address] [place] [phone] 04/16/2024 9:00 AM OBSTETRIC ASSISTANT Hospital Encounter [facility] [address] [place] [phone] 04/17/2024 8:30 AM OBSTETRIC ASSISTANT Appointment [facility] [address] [place] [phone] 04/18/2024 9:30 AM OBSTETRIC ASSISTANT Appointment [facility] [address] [place] [phone] 04/18/2024 10:30 AM OBSTETRIC ASSISTANT Office Visit [facility] - Hematology/Oncology [address] [place] [phone] Cindy Garcia MD [address] [place] [address] 04/19/2024 9:00 AM OBSTETRIC ASSISTANT Appointment [facility] [address] [place] [address] 05/13/2024 9:00 AM OBSTETRIC ASSISTANT Appointment [facility] [address] [place] [phone] 05/28/2024 10:00 AM OBSTETRIC ASSISTANT Office Visit [facility] - Nephrology [address] [place] [address] Cindy Garcia MD [address] [place] [address] Santiago Meraz MD [facility] [place] [address] documented as of this encounter Visit Diagnoses Not on filedocumented in this encounter Care Teams Circulating Nurse Relationship Specialty Start Date End Date Timothy Banks MD [address] [place] [address] PCP - General 10/19/18 Cindy Garcia MD [address] [place] [address] Senior Physical Therapist/Oncologis t Hematology and Oncology 03/24/24 documented as of this encounter
--- OUTSIDE RECORDS SUMMARY | 2024-04-11 13:50 | XMS_ITS ---
Author Organization [facility] Address [address] [facility] [place] [address] Care Team Providers Care Gas Booster Engineer Name Role Phone Timothy Banks MD Primary Care Provider [phone] Cindy Garcia MD Unavailable Active Problems Problem [...] treatments are documented for this patient in [facility]. Treatments may have been administered in another system.
--- OUTSIDE RECORDS SUMMARY | 2024-04-11 13:50 | XMS_ITS | Encounter Summary ---
Author Organization [facility] Address [address] [place] [address] Care Team Providers Care Commercial Account Officer Name Role Phone Timothy Banks MD Primary Care Provider [phone] Cindy Garcia MD Unavailable Encounter Details Date Type Department Care Team (Latest Contact Info) Description 04/01/2024 3:09 PM TECHNICAL SUPPORT REPRESENTATIVE - 04/01/2024 11:59 PM [facility] Hospital Encounter [facility] [address] [place] [address] Discharge Disposition: Home or Self Care Social [...] and heating? Not hard at all 03/13/2024 [facility] of Occupat ional Health - Occupational Stress [...] any time in the past 12 m [facility], were you homeless or living in a longterm (including now)? No 03/13/2024 Sex and Gender Information Value Date Recorded Sex Assigned at Male 03/05/2024 8:04 AM TECHNICAL SUPPORT REPRESENTATIVE Gender Identity Male 03/05/2024 8:04 AM TECHNICAL SUPPORT REPRESENTATIVE Sexual Orientation Straight 03/05/2024 8: 04 AM TECHNICAL SUPPORT REPRESENTATIVE documented as of this encounter Functional Status [...] ondansetron, disintegrating, (Zofran ODT) 8 MG tabletIndications:[place] myeloid leuk w multilin dysplasia, not achieve [...] once daily venetoclax (Venclexta) 100 MG tabletIndications:[place] Myelocytic Leukemia Take 1 (one) tablet by mouth daily with food Reasons: Acute Myelocytic Leukemia 28 tablet 11 03/13/2024 04/05/2024 documented as of this encounter Plan of Treatment Upcoming Encounters Date Type Department Care Team (Tayler rothman Contact Info) Description 04/15/2024 8:30 AM TECHNICAL SUPPORT REPRESENTATIVE Hospital Encounter [facility] [address] [place] [phone] 04/16/2024 9:00 AM TECHNICAL SUPPORT REPRESENTATIVE Hospital Encounter [facility] [address] [place] [phone] 04/17/2024 8:30 AM TECHNICAL SUPPORT REPRESENTATIVE Appointment [facility] [address] [place] [address] 04/18/2024 9:30 AM TECHNICAL SUPPORT REPRESENTATIVE Appointment [facility] [address] [place] [phone] 04/18/2024 10:30 AM TECHNICAL SUPPORT REPRESENTATIVE Office Visit [facility] - Hematology/Oncology [address] [place] [phone] Cindy Garcai MD [address] [place] [phone] 04/19/2024 9:00 AM TECHNICAL SUPPORT REPRESENTATIVE Appointment [facility] [address] [place] [phone] 05/13/2024 9:00 AM TECHNICAL SUPPORT REPRESENTATIVE Appointment [facility] [address] [place] [phone] 05/28/2024 10:00 AM TECHNICAL SUPPORT REPRESENTATIVE Office Visit [facility] - Nephrology [address] [place] [phone] Cindy Garcia MD [address] [place] [address] Santiago Meraz MD [address] [place] [address] documented as of this encounter Procedures Procedure Name Priority Date/Time Associated Diagnosis Comments URIC ACID BLOOD Routine 04/01/2024 3:12 PM TECHNICAL SUPPORT REPRESENTATIVE Tumor lysis syndrome (HCC) ERYTHROPOIETIN Routine 04/01/2024 3:12 PM TECHNICAL SUPPORT REPRESENTATIVE 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) SOLUBLE TRANSFERRIN RECEPTOR Routine 04/01/2024 3:12 PM TECHNICAL SUPPORT REPRESENTATIVE 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) DIFFERENTIAL MANUAL Routine 04/01/2024 3 :12 PM TECHNICAL SUPPORT REPRESENTATIVE 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) CBC W AUTO DIFFERENTIAL Routine 04/01/20 3:12 PM TECHNICAL SUPPORT REPRESENTATIVE 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) COMPREHENSIVE METABOLIC PANEL Routine 04/01/2024 3:12 PM TECHNICAL SUPPORT REPRESENTATIVE 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) PHOSPHORUS BLOOD Routine 04/01/2024 3:12 PM TECHNICAL SUPPORT REPRESENTATIVE Tumor lysis syndrome (HCC) MAGNESIUM BLOOD Routine 04/01/2024 3:12 PM TECHNICAL SUPPORT REPRESENTATIVE 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) documented in this encounter Results * PHOSPHORUS BLOOD (04/01/2024 3:12 PM TECHNICAL SUPPORT REPRESENTATIVE) Phosphorus 2.9 2.8 - 5.1 mg/dL 04/01/2024 5:52 PM TECHNICAL SUPPORT REPRESENTATIVE [facility] Blood BLOOD SPECIMEN / Unknown Lab Venipuncture / Unknown 04/01/2024 3:12 PM TECHNICAL SUPPORT REPRESENTATIVE 04/01/2024 5:30 PM TECHNICAL SUPPORT REPRESENTATIVE Cindy Garcia MD LAB - CHEMISTRY CHELI MONREAL [facility] Organization Address City/State/[facility] Co de Phone Number [facility] [address] [place] [phone], [facility] [phone] * URIC ACID BLOOD (04/01/2024 3:12 PM TECHNICAL SUPPORT REPRESENTATIVE) Uric Acid 4.0 3.5 - 7.2 mg/dL 04/01/2024 5:52 PM TECHNICAL SUPPORT REPRESENTATIVE [facility] Blood BLOOD SPECIMEN / Unknown Lab Venipuncture / Unknown 04/01/2024 3:12 PM TECHNICAL SUPPORT REPRESENTATIVE 04/01/2024 5:30 PM TECHNICAL SUPPORT REPRESENTATIVE Cindy Garcia MD LAB - CHEMISTRY CHELI MONREAL [facility] [address] [place] [address], [place] [phone] * (ABNORMAL) DIFFERENTIAL MANUAL (04/01/2024 3:12 PM TECHNICAL SUPPORT REPRESENTATIVE) Neutrophil % 31(L) 41 - 74 % 04/01/2024 5:13 PM [facility] Lymphocyte % 60(H) 17 - 47 % 04/01/2024 5:13 PM [facility] Monocyte % 9 3 - 11 % 04/01/2024 5:13 PM [facility] Neutrophil Absolute 0.25(L) 1.60 - 7.50 x10E9/L 04/01/2024 5:13 PM [facility] Lymphocyte Absolute 0.48(L) 1.00 - 4.40 x10E9/L 04/01/2024 5:13 PM [facility] Monocyte Absolute 0.07(L) 0.15 - 1.00 x10E9/L 04/01/2024 5:13 PM [facility] RBC Morphology REVIEWED 04/01/2024 5:13 PM [facility] Steven Cells MANY(A) (none) 04/01/2024 5:13 PM [facility] Schistocytes FEW(A) (none) 04/01/2024 5:13 PM [facility] Blood BLOOD SPECIMEN / Unknown Lab Venipuncture / Unknown 04/01/2024 3:12 PM TECHNICAL SUPPORT REPRESENTATIVE 04/01/2024 3:36 PM TECHNICAL SUPPORT REPRESENTATIVE Cindy Garcia MD LAB - HEMATOLOGY ORD HEMALATHA [facility] [address] [place] [address], [place] [phone] * MAGNESIUM BLOOD (04/01/2024 3:12 PM TECHNICAL SUPPORT REPRESENTATIVE) Magnesium 2.1 1.6 - 2.6 mg/dL 04/01/2024 4:25 PM [facility] Comment:Hemolysis detected i n this specimen. Hemolysis is known to cause elevations in this analyte. Caution should be exercised in the interpretation of this result. Recommend repeat testing if clinically indicated. Blood BLOOD SPECIMEN / Unknown Lab Venipuncture / Unknown 04/01/2024 3:12 PM TECHNICAL SUPPORT REPRESENTATIVE 04/01/2024 3:36 PM TECHNICAL SUPPORT REPRESENTATIVE Cindy Garcia MD LAB - CHEMISTRY CHELI MONREAL Performing Organization Address City/[facility] Co de Phone Number [facility] [address] [place] [phone], [facility] [phone] * ERYTHROPOIETIN (04/01/2024 3:12 PM TECHNICAL SUPPORT REPRESENTATIVE) Erythropoietin 22 4 - 27 mU/mL 04/02/2024 11:36 AM TECHNICAL SUPPORT REPRESENTATIVE [facility] [employer] ([facility]) Comment: INTERPRETIVE INFORMATION: Erythropoietin Normal serum concentrations [...] benefit from therapy with recombinant EPO ([facility] [phone],1989). Performed By: [facility] [address] [place] [address] Drywall Taper: Uche Morley MD, PhD CLIA Number: [id number] Blood BLOOD SPECIMEN / Unknown Lab Venipuncture / Unknown 04/01/2024 3:12 PM TECHNICAL SUPPORT REPRESENTATIVE 04/01/2024 3:22 PM TECHNICAL SUPPORT REPRESENTATIVE Cindy Garcia MD LAB - CHEMISTRY CHELI MONREAL [employer] ([facility]) [address] [place] [address], [facility] * SOLUBLE TRANSFERRIN RECEPTOR (04/01/2024 3:12 PM TECHNICAL SUPPORT REPRESENTATIVE) [facility] Soluble Transferrin Receptor 3.3 2.2 - 5.0 mg/L 04/02/2024 9:13 PM TECHNICAL SUPPORT REPRESENTATIVE [employer] ([facility]) Comment: INTERPRETIVE INFORMATION: Soluble Transferrin Receptor People [...] ??High ? Normal ? High Performed By: [facility] [address] [place] [id number] Drywall Taper: Uche Morley MD, PhD CLIA Number: [id number] Blood BLOOD SPECIMEN / Unknown Lab Venipuncture / Unknown 04/01/2024 3:12 PM TECHNICAL SUPPORT REPRESENTATIVE 04/01/2024 3:22 PM [facility] Cindy Garcia MD LAB - CHEMISTRY CHELI Rao Organization Address City/State/ZIP Co de Phone Number [facility] ([facility]) [address] [place] [address], [facility] * (ABNORMAL) COMPREHENSIVE METABOLIC PANEL (04/01/2024 3:12 PM TECHNICAL SUPPORT REPRESENTATIVE) BUN 16 7 - 26 mg/dL 04/01/2024 4:25 PM [facility] Creatinine 1.28(H) 0.71 - 1.16 mg/dL 04/01/2024 4:25 PM [facility] Sodium 140 136 - 145 mmol/L 04/01/2024 4:25 PM [facility] Potassium 4.2 3.5 - 4.5 mmol/L 04/01/2024 4:25 PM [facility] Comment:Hemolysis detected i n this specimen. Hemolysis may cause false elevations in potassium leading to pseudohyperkalemia or masked hypokalemia. Recommend repeat testing if clinically indicated. Chloride 107 98 - 107 mmol/L 04/01/2024 4:25 PM [facility] CO2 25 22 - 29 mmol/L 04/01/2024 4:25 PM [facility] Glucose 106(H) 70 - 99 mg/dL 04/01/2024 4:25 PM [facility] Calcium 9.2 8.4 - 10.2 mg/dL 04/01/2024 4:25 PM [facility] Protein Total 7.1 6.0 - 8.3 g/dL 04/01/2024 4:25 PM [facility] Comment:Hemolysis detected i n this specimen. Hemolysis is known to cause elevations in this analyte. Caution should be exercised in the interpretation of this result. Recommend repeat testing if clinically indicated. Albumin 3.8 3.4 - 5.0 g/dL 04/01/2024 4:25 PM [facility] Bilirubin Total 0.7 0.2 - 1.2 mg/dL 04/01/2024 4:25 PM [facility] Alkaline Phosphatase 115 40 - 150 U/L 04/01/2024 4:25 PM [facility] ALT 34 5 - 55 U/L 04/01/2024 4:25 PM [facility] AST 30 5 - 34 U/L 04/01/2024 4:25 PM [facility] Comment:Hemolysis detected i n this specimen. Hemolysis is known to cause elevations in this analyte. Caution should be exercised in the interpretation of this result. Recommend repeat testing if clinically indicated. Anion Gap 8 6 - 16 04/01/2024 4:25 PM [facility] BUN/Creatinine Ratio 13 7 - 23 03/11 4:25 PM [facility] Osmolality Calculated 292 275 - 295 mOsm/kg 04/01/2024 4:25 PM [facility] Albumin/Globulin Ratio 1.2 1.1 - 2.3 04/01/2024 4:25 PM [facility] eGFR by CKD-EPI 57(L) >=90 mL/min/1 .73 m2 04/01/2024 4:25 PM [facility] Blood BLOOD SPECIMEN / Unknown Lab Venipuncture / Unknown 04/01/2024 3:12 PM TECHNICAL SUPPORT REPRESENTATIVE 04/01/2024 3:36 PM TECHNICAL SUPPORT REPRESENTATIVE Cindy Garcia MD LAB - CHEMISTRY ORDE [facility] Organization Address City/State/ZIP Co de Phone Number [facility] [address] [place] [phone], [facility] [phone] * (ABNORMAL) CBC W/ DIFFERENTIAL (04/01/2024 3:12 PM TECHNICAL SUPPORT REPRESENTATIVE) WBC 0.8(LL) 4.0 - 10.7 x10E9/L 04/01/2024 5:17 PM [facility] RBC Count 4.17(L) 4.30 - 5.80 x10E12/L 04/01/2024 5:17 PM [facility] Hemoglobin 11.8(L) 13.3 - 17.5 g/dL 04/01/2024 5:17 PM [facility] Hematocrit 37.3(L) 38.7 - 51.1 % 04/01/2024 5:17 PM [facility] MCV 89.4 80.0 - 98.0 fL 04/01/2024 5:17 PM [facility] MCH 28.3 26.7 - 33.6 pg 04/01/2024 5:17 PM [facility] MCHC 31.6(L) 31.7 - 36.3 g/dL 04/01/2024 5:17 PM [facility] RDW-CV 17.3(H) 11.3 - 14.8 % 04/01/2024 5:17 PM [facility] Platelet Count 78(L) 150 - 420 x10E9/L 04/01/2024 5:17 PM [facility] MPV 10.8 7.8 - 11.4 fL 04/01/2024 5:17 PM [facility] Blood BLOOD SPECIMEN / Unknown Lab Venipuncture / Unknown 04/01/2024 3:12 PM TECHNICAL SUPPORT REPRESENTATIVE 04/01/2024 3:36 PM TECHNICAL SUPPORT REPRESENTATIVE Cindy Garcia MD LAB - HEMATOLOGY ORD ERABLES Performing Organization Address City/[facility] Co de Phone Number [facility] [address] [place] [address], [place] [phone] documented in this encounter Visit Diagnoses Diagnosis 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
--- OUTSIDE RECORDS SUMMARY | 2024-04-11 13:51 | XMS_ITS | Encounter Summary ---
Author Organization [facility] Address [address] [place] [address] Care Team Providers Care Security Monitor Name Role Phone Timothy Banks MD Primary Care Provider [phone] Reason for Visit * Reason Onset Date Comments Medication Prior Auth Request 03/13/2024 Encounter Details Date Type Department Care Team (Late st Contact Info) Description 03/13/2024 Telephone [facility] [address] [place] [address] Cindy Garcia MD [address] [place] [address] Medication Prior Auth Request Social [...] and heating? Not hard at all 03/13/2024 [facility] [place] of Occupat ional Health - Occupational Stress [...] any time in the past 12 m [facility], were you homeless or living in a [facility] (including now)? No 03/13/2024 Sex and Gender Information Value Date Recorded Sex Assigned at Male 03/05/2024 8:04 AM INTERNAL CORROSION SPECIALIST Gender Identity Male 03/05/2024 8:04 AM INTERNAL CORROSION SPECIALIST Sexual Orientation Straight 03/05/2024 8: 04 AM INTERNAL CORROSION SPECIALIST documented as of this encounter Miscellaneous Notes * Telephone Encounter - Ryan Bolden CPhT - 03/13/2024 2:35 PM CST Medication Prior Authorization Medication: POSACONAZOLE Status: Submitted - Pending Submitted via: Cover My Meds ([place]:[email or web address]) Insurance: [employer] Helpdesk: [phone] RNAL CORROSION SPECIALIST documented in this encounter Plan of Treatment Upcoming Encounters Date Type Department Care Team (Late st Contact Info) Description 04/15/2024 8:30 AM INTERNAL CORROSION SPECIALIST Hospital Encounter [address] [phone] 04/16/2024 9:00 AM INTERNAL CORROSION SPECIALIST Hospital Encounter [facility] [address] [place] [phone] 04/17/2024 8:30 AM INTERNAL CORROSION SPECIALIST Appointment [facility] [address] [place] [phone] 04/18/2024 9:30 AM INTERNAL CORROSION SPECIALIST Appointment [facility] [address] [place] [phone] 04/18/2024 10:30 AM INTERNAL CORROSION SPECIALIST Office Visit [facility] - Hematology/Oncology [address] [place] [phone] Cindy Garcia MD [address] [place] [phone] 04/19/2024 9:00 AM INTERNAL CORROSION SPECIALIST Appointment [facility] [address] [place] [phone] 05/13/2024 9:00 AM INTERNAL CORROSION SPECIALIST Appointment [facility] [address] [place] [phone] 05/28/2024 10:00 AM INTERNAL CORROSION SPECIALIST Office Visit [facility] - Nephrology [address] [facility], [place] [address] Cindy Garcia MD [address] [place] [phone] Santiago Meraz MD [facility] [place] [address] documented as of this encounter Visit Diagnoses Not on filedocumented in this encounter Care Teams Security Monitor Relationship Specialty Start Date End Date Timothy Banks MD [address] [place] [phone] PCP - General 10/19/18 documented as of this encounter
--- OUTSIDE RECORDS SUMMARY | 2024-04-11 13:51 | XMS_ITS | Encounter Summary ---
Author Organization [facility] Address [address] [facility] [place] [address] Care Team Providers Care Vehicle Assembly Inspector Name Role Phone Timothy Banks MD Primary Care Provider [phone] Reason for Visit * Reason Onset Date Comments Medication Prior Auth Request 03/14/2024 Encounter Details Date Type Department Care Team (Late st Contact Info) Description 03/14/2024 Telephone [facility] - Hematology/Oncology [address] [place] [address] Cindy Garcia MD [address] [place] [address] Medication Prior Auth Request Social [...] and heating? Not hard at all 03/13/2024 [facility] [place] of Occupat ional Health - Occupational Stress [...] time in the past [address] [facility], were you homeless or living in a [place] [facility] (including now)? No 03/13/2024 Sex and Gender Information Value Date Recorded Sex Assigned at Male 03/05/2024 8:04 AM INSPECTOR ROUGH CASTINGS Gender Identity Male 03/05/2024 8:04 AM INSPECTOR ROUGH CASTINGS Sexual Orientation Straight 03/05/2024 8: 04 AM INSPECTOR ROUGH CASTINGS documented as of this encounter Functional Status [...] VENCLEXTA Status: Approved through 04/09/2024 Submitted via: [id number] Insurance: [employer]I Outcome Approved today by [employer] NCPDP 2017 Your request has been approved Authorization Expiration Date: 04/09/2024 ECTOR ROUGH CASTINGS documented in this encounter Plan of Treatment Upcoming Encounters Date Type Department Care Team (Late st Contact Info) Description 04/15/2024 8:30 AM INSPECTOR ROUGH CASTINGS Hospital Encounter [facility] [address] [place] [phone] 04/16/2024 9:00 AM INSPECTOR ROUGH CASTINGS Hospital Encounter [facility] [address] [place] [phone] 04/17/2024 8:30 AM INSPECTOR ROUGH CASTINGS Appointment [facility] [address] [place] [phone] 04/18/2024 9:30 AM INSPECTOR ROUGH CASTINGS Appointment [facility] [address] [place] [phone] 04/18/2024 10:30 AM INSPECTOR ROUGH CASTINGS Office Visit [facility] - Hematology/Oncology [address] [place] [phone] Cindy Garcia MD [address] [place] [address] 04/19/2024 9:00 AM INSPECTOR ROUGH CASTINGS Appointment [facility] [address] [place] [address] 05/13/2024 9:00 AM INSPECTOR ROUGH CASTINGS Appointment [facility] [address] [place] [address] 05/28/2024 10:00 AM INSPECTOR ROUGH CASTINGS Office Visit [facility] - Nephrology [address] [place] [phone] Cindy Garcia MD [address] [place] [address] Santiago Meraz MD [address] [place] [address] [place] [address] documented as of this encounter Visit Diagnoses Not on filedocumented in this encounter Care Teams Vehicle Assembly Inspector Relationship Specialty Start Date End Date Timothy Banks MD [address] [place] [address] PCP - General 10/19/18 documented as of this encounter
--- OUTSIDE RECORDS SUMMARY | 2024-04-11 13:51 | XMS_ITS | Encounter Summary ---
Author Organization [facility] Address [address] [facility] [place] [address] Care Team Providers Care Account Service Representative Name Role Phone Timothy Banks MD Primary Care Provider [phone] Encounter Details Date Type Department Care Team (Late st Contact Info) Description 03/13/2024 Orders Only [facility] [address] [place] [address] Cindy Garcia MD [address] [place] [address] Social History Tobacco Use Types Packs/Day Years [...] and heating? Not hard at all 03/13/2024 [facility] [place] of Occupat ional Health - Occupational Stress [...] any time in the past 12 m [facility], were you homeless or living in a [facility] (including now)? No 03/13/2024 Sex and Gender Information Value Date Recorded Sex Assigned at Male 03/05/2024 8:04 AM COMMUNICATIONS TOWER TECHNICIAN Gender Identity Male 03/05/2024 8:04 AM COMMUNICATIONS TOWER TECHNICIAN Sexual Orientation Straight 03/05/2024 8: 04 AM COMMUNICATIONS TOWER TECHNICIAN documented as of this encounter Plan of Treatment Upcoming Encounters Date Type Department Care Team (Late st Contact Info) Description 04/15/2024 8:30 AM COMMUNICATIONS TOWER TECHNICIAN Hospital Encounter [facility] [address] [place] [phone] 04/16/2024 9:00 AM COMMUNICATIONS TOWER TECHNICIAN Hospital Encounter [facility] [address] [place] [phone] 04/17/2024 8:30 AM COMMUNICATIONS TOWER TECHNICIAN Appointment [facility] [address] [place] [phone] 04/18/2024 9:30 AM COMMUNICATIONS TOWER TECHNICIAN Appointment [facility] [address] [place] [phone] 04/18/2024 10:30 AM COMMUNICATIONS TOWER TECHNICIAN Office Visit [facility] - Hematology/Oncology [address] [place] [phone] Cindy Garcia MD [address] [place] [address] 04/19/2024 9:00 AM COMMUNICATIONS TOWER TECHNICIAN Appointment [facility] [address] [place] [phone] 05/13/2024 9:00 AM COMMUNICATIONS TOWER TECHNICIAN Appointment [facility] [address] [place] [address] 05/28/2024 10:00 AM COMMUNICATIONS TOWER TECHNICIAN Office Visit [facility] - Nephrology [address] [facility] [place] [address] Cindy Garcia MD [facility] [place] [address] Santiago Meraz MD [address] [place] [address] documented as of this encounter Visit Diagnoses Not on filedocumented in this encounter Care Teams Account Service Representative Relationship Specialty Start Date End Date Timothy Banks MD [address] [place] [phone] PCP - General 10/19/18 documented as of this encounter
--- OUTSIDE RECORDS SUMMARY | 2024-04-11 13:51 | XMS_ITS | Encounter Summary ---
Author Organization [facility] Address [address] [place] [address] Care Team Providers Care Communications Consultant Name Role Phone Timothy Banks MD Primary Care Provider [phone] Encounter Details Date Type Department Care Team (Late st Contact Info) Description 03/01/2024 Orders Only [facility] [address] [place] [phone] Cindy Garcia MD [address] [place] [phone] Neutropenia, unspecified type (HCC) Social History Tobacco Use Types Packs/Day Years Used Date Smoking Tobacco: Never Assessed Sex and Gender Information Value Date Recorded Sex Assigned at Male 03/05/2024 8:04 AM SLITTER SCORER Gender Identity Male 03/05/2024 8:04 AM SLITTER SCORER Sexual Orientation Straight 03/05/2024 8: 04 AM SLITTER SCORER documented as of this encounter Plan of Treatment Upcoming Encounters Date Type Department Care Team (Late Contact Info) Description 04/15/2024 8:30 AM SLITTER SCORER Hospital Encounter [facility] [address] [place] [address] 04/16/2024 9:00 AM SLITTER SCORER Hospital Encounter [facility] [address] [place] [phone] 04/17/2024 8:30 AM SLITTER SCORER Appointment [facility] [address] [place] [phone] 04/18/2024 9:30 AM SLITTER SCORER Appointment [facility] [address] [place] [phone] 04/18/2024 10:30 AM SLITTER SCORER Office Visit [facility] - Hematology/Oncology [address] [place] [phone] Cindy Garcia MD [address] [place] [address] 04/19/2024 9:00 AM SLITTER SCORER Appointment [facility] [address] [place] [address] 05/13/2024 9:00 AM SLITTER SCORER Appointment [facility] [address] [place] [address] 05/28/2024 10:00 AM SLITTER SCORER Office Visit [facility] - Nephrology [address] [place] [address] Cindy Garcia MD [address] [place] [address] [place] [address] [place] [phone] documented as of this encounter Procedures Procedure Name Priority Date/Time Associated Diagnosis Comments HEPATITIS B CORE ANTIBODY TOTAL Routine 03/04/2024 4:13 PM SLITTER SCORER Neutropenia, unspecified type (HCC) documented in this encounter Results * HEPATITIS C ANTIBODY (03/04/2024 4:13 PM SLITTER SCORER) Hepatitis C Antibody Non-react carlos Non-reac tive 03/04/2024 5:12 PM SLITTER SCORER [facility] Comment:Hepatitis C Antibody screen indicates no serologic evidence of past or current infection with Hepatitis C Virus. Patients with unexplained liver disease who are immunocompromised or suspected of having acute Hepatitis C infection may benefit from Nucleic Acid Test (YUSRA) for Hepatitis C Viral RNA to confirm Hepatitis C status. Blood BLOOD SPECIMEN / Unknown Lab Venipuncture / Unknown 03/04/2024 4:13 PM SLITTER SCORER 03/04/2024 4:23 PM SLITTER SCORER Cindy Garcia MD LAB - CHEMISTRY CHELI MONREAL Performing Organization Address City/[facility]/ZIP Co de Phone Number [facility] [address] [place] [address], [place] [phone] * HEPATITIS B SURFACE ANTIBODY (03/04/2024 4:13 PM SLITTER SCORER) Hepatitis B Virus Surface Antibody Non-react carlos Non-react carlos 03/04/2024 5:12 PM SLITTER SCORER [facility] Comment: < 8 mIU/mL Hepatitis B surface Antibody (HBsAb). Nonreactive for HBsAb - individual is considered not immune to Hepatitis B Virus infection. Hepatitis B Surface Antibody Quantitative 0.3 <8.0 mIU/mL 03/04/2024 5:12 PM SLITTER SCORER [facility] Comment: Hepatitis B Surface Antibody Numeric Result Interpretation: ? Nonreactive: ?<8.0 mIU/mL ? Indeterminate: ??8.0 - 12.0 mIU/mL ? Reactive: ?>12.0 mIU/mL ? Blood BLOOD SPECIMEN / Unknown Lab Venipuncture / Unknown 03/04/2024 4:13 PM SLITTER SCORER 03/04/2024 4:23 PM SLITTER SCORER Cindy Garcia MD LAB - CHEMISTRY CHELI MONREAL [facility] [address] [place] [address], [place] [phone] * HEPATITIS B CORE ANTIBODY TOTAL (03/04/2024 4:13 PM SLITTER SCORER) HBc Antibody Total Non-reacti ve Non-reacti ve 03/04/2024 5:12 PM SLITTER SCORER [facility] Blood BLOOD SPECIMEN / Unknown Lab Venipuncture / Unknown 03/04/2024 4:13 PM SLITTER SCORER 03/04/2024 4:23 PM SLITTER SCORER Cindy Garcia MD LAB - CHEMISTRY CHELI MONREAL [address] [address], [place] [phone] * HIV-1 HIV-2 ANTIBODY + HIV P24 AG PANEL (New on 08/24) (03/04/2024 4:13 PM SLITTER SCORER) Pathologist [facility] HIV Antigen/Antibod y 1 & 2 Non-reacti ve Non-react carlos 03/04/2024 5:12 PM SLITTER SCORER [facility] Comment:No Laboratory eviden ce of HIV infection. Blood BLOOD SPECIMEN / Unknown Lab Venipuncture / Unknown 03/04/2024 4:13 PM SLITTER SCORER 03/04/2024 4:23 PM SLITTER SCORER Cindy Garcia MD LAB - CHEMISTRY CHELI MONREAL Performing Organization Address City/[facility]/ZIP Co de Phone Number [address] [address], [place] [phone] * ERYTHROCYTE SEDIMENTATION RATE (03/04/2024 4:13 PM SLITTER SCORER) [facility] Erythrocyte Sedimentation Rate Westergren 14 0 - 20 MM/HR 03/04/2024 5:10 PM SLITTER SCORER [facility] Blood BLOOD SPECIMEN / Unknown Lab Venipuncture / Unknown 03/04/2024 4:13 PM SLITTER SCORER 03/04/2024 4:27 PM SLITTER SCORER Cindy Garcia MD LAB - HEMATOLOGY ORD HEMALATHA [address] [address], [place] [phone] * C-REACTIVE PROTEIN (03/04/2024 4:13 PM SLITTER SCORER) Pathologist [facility] C-Reactive Protein 0.5 <=0.5 mg/dL 03/04/2024 4:56 PM SLITTER SCORER [facility] Blood BLOOD SPECIMEN / Unknown Lab Venipuncture / Unknown 03/04/2024 4:13 PM SLITTER SCORER 03/04/2024 4:27 PM SLITTER SCORER Cindy Garcia MD LAB - CHEMISTRY CHELI MONREAL [facility] [address] [place] [address], [place] [phone] * RHEUMATOID FACTOR BLOOD QUANTITATIVE (03/04/2024 4:13 PM SLITTER SCORER) [facility] Rheumatoid Factor <15 <30 IU/mL 03/04/2024 4:57 PM SLITTER SCORER [facility] Rheumatoid Factor Screen Negative Negative 03/04/2024 4:57 PM SLITTER SCORER [facility] Blood BLOOD SPECIMEN / Unknown Lab Venipuncture / Unknown 03/04/2024 4:13 PM SLITTER SCORER 03/04/2024 4:23 PM SLITTER SCORER Cindy Garcia MD LAB - CHEMISTRY CHELI MONREAL Performing Organization Address City/[facility]/ZIP Co de Phone Number [facility] [address] [place] [address], [place] [phone] * MARLINE BLOOD SCREEN W/REFLEX TITER (03/04/2024 4:13 PM SLITTER SCORER) [facility] MARLINE IgG None Detected None Detected 03/05/2024 11:42 PM SLITTER SCORER [facility] Comment: If suspicion of connective tissue disease is strong and MARLINE EIA is negative, consider testing for MARLINE by IFA ([id number]). INTERPRETIVE INFORMATION: Anti-Nuclear Antibodies (MARLINE), IgG by TOÑA Antinuclear Antibodies (MARLINE), IgG by TOÑA: MARLINE specimens are screened using enzyme-linked immunosorbent assay (TOÑA) methodology. All TOÑA results reported as Detected are further tested by indirect fluorescent assay (IFA) using HEp-2 substrate with an IgG-specific conjugate. The MARLINE TOÑA screen is designed to detect antibodies against dsDNA, histones, SS-A (Ro), SS-B (La), Pimentel, Pimentel/EDUCATIONAL AID, Scl-70, Mey-1, centromeric proteins, other antigens extracted from the HEp-2 cell nucleus. MARLINE TOÑA assays have been reported to have lower sensitivities than MARLINE IFA for systemic autoimmune rheumatic diseases (SARD). Negative results do not necessarily rule out SARD. Performed By: [facility] [address] [place] [address] Truck Body Builder Apprentice: Uche Morley MD, PhD CLIA Number: [id number] Blood BLOOD SPECIMEN / Unknown Lab Venipuncture / Unknown 03/04/2024 4:13 PM SLITTER SCORER 03/04/2024 4:23 PM SLITTER SCORER Cindy Garcia MD LAB - CHEMISTRY CHELI MONREAL Performing Organization Address City/[facility]/ZIP Co de Phone Number [facility] [address] [place], [place] [address] * (ABNORMAL) FERRITIN (03/04/2024 4:13 PM SLITTER SCORER) Ferritin 21(L) 22 - 275 ng/mL 03/04/2024 5:12 PM SLITTER SCORER [facility] Blood BLOOD SPECIMEN / Unknown Lab Venipuncture / Unknown 03/04/2024 4:13 PM SLITTER SCORER 03/04/2024 4:23 PM SLITTER SCORER Cindy Garcia MD LAB - CHEMISTRY CHELI MONREAL [address] [address], [facility] [phone] * (ABNORMAL) IRON + TRANSFERRIN PANEL [w/Transferrin Sat % + TIBC] (03/04/2024 4:13 PM SLITTER SCORER) Iron 31(L) 50 - 175 ug/dL 03/04/2024 4:53 PM SLITTER SCORER [facility] Transferrin 257 174 - 382 mg/dL 03/04/2024 4:53 PM SLITTER SCORER [facility] Transferrin Saturation % 10(L) 16 - 50 % 03/04/2024 4:53 PM SLITTER SCORER [facility] TIBC Calculated 321 240 - 450 ug/dL 03/04/2024 4:53 PM SLITTER SCORER [facility] Blood BLOOD SPECIMEN / Unknown Lab Venipuncture / Unknown 03/04/2024 4:13 PM SLITTER SCORER 03/04/2024 4:23 PM SLITTER SCORER Cindy Garcia MD LAB - CHEMISTRY CHELI SHARRINIC Performing Organization Address City/[facility]/ZIP Co de Phone Number [address] [address], [facility] [phone] * TSH REFLEX FREE T4 (03/04/2024 4:13 PM SLITTER SCORER) TSH 0.961 0.350 - 4.940 uIU/mL 03/04/2024 5:29 PM SLITTER SCORER [facility] Blood BLOOD SPECIMEN / Unknown Lab Venipuncture / Unknown 03/04/2024 4:13 PM SLITTER SCORER 03/04/2024 4:27 PM SLITTER SCORER Cindy Garcia MD LAB - CHEMISTRY CHELI MONREAL Performing Organization Address [facility] Co de Phone Number [address] [address], [place] [phone] * ZINC BLOOD (03/04/2024 4:13 PM SLITTER SCORER) Zinc 62.4 60.0 - 120.0 ug/dL 03/06/2024 6:35 AM SLITTER SCORER [facility] Comment: INTERPRETIVE INFORMATION: Zinc, Serum or Plasma [...] developed and its performance characteristics determined by [facility]. It has not been cleared or approved by the [place] Food and Drug Administration. This test was performed in a CLIA certified laboratory and is intended for clinical purposes. Performed By: [facility] [address] [place] [address] Truck Body Builder Apprentice: Uche Morley MD, PhD CLIA Number: [id number] Blood BLOOD SPECIMEN / Unknown Lab Venipuncture / Unknown 03/04/2024 4:13 PM SLITTER SCORER 03/04/2024 4:23 PM SLITTER SCORER Cindy Garcia MD LAB - CHEMISTRY CHELI MONREAL Performing Organization Address [facility] de Phone Number [facility] Marco Vasco [facility]) [address] * COPPER BLOOD (03/04/2024 4:13 PM SLITTER SCORER) Copper 108.5 70.0 - 140.0 ug/dL 03/06/2024 6:35 AM SLITTER SCORER [facility] Marco Vasco ([facility]) Comment: INTERPRETIVE INFORMATION: Copper, Serum or Plasma [...] developed and its performance characteristics determined by [facility]. It has not been cleared or approved by the US Food and Drug Administration. This test was performed in a CLIA certified laboratory and is intended for clinical purposes. Performed By: [facility] [address] [place] [address] Truck Body Builder Apprentice: Uche Morley MD, PhD CLIA Number: [id number] Blood BLOOD SPECIMEN / Unknown Lab Venipuncture / Unknown 03/04/2024 4:13 PM SLITTER SCORER 03/04/2024 4:23 PM SLITTER SCORER Cindy Garcia MD LAB - CHEMISTRY CHELI MONREAL Performing Organization Address [facility] Co de Phone Number [facility]) [address] * FOLATE (03/04/2024 4:13 PM SLITTER SCORER) Folate 17.7 7.0 - 31.4 ng/mL 03/04/2024 5:29 PM [facility] Blood BLOOD SPECIMEN / Unknown Lab Venipuncture / Unknown 03/04/2024 4:13 PM SLITTER SCORER 03/04/2024 4:27 PM SLITTER SCORER Cindy Garcia MD LAB - CHEMISTRY CHELI MONREAL [address] [address], [facility] [phone] * VITAMIN B12 (03/04/2024 4:13 PM SLITTER SCORER) Vitamin B12 524 213 - 816 pg/mL 03/04/2024 5:29 PM [facility] Blood BLOOD SPECIMEN / Unknown Lab Venipuncture / Unknown 03/04/2024 4:13 PM SLITTER SCORER 03/04/2024 4:27 PM SLITTER SCORER Cindy Garcia MD LAB - CHEMISTRY CHELI MONREAL [address] [address], [facility] [phone] * (ABNORMAL) COMPREHENSIVE METABOLIC PANEL (03/04/2024 4:13 PM SLITTER SCORER) BUN 14 7 - 26 mg/dL 03/04/2024 4:56 PM [facility] Creatinine 1.10 0.71 - 1.16 mg/dL 03/04/2024 4:56 PM [facility] Sodium 141 136 - 145 mmol/L 03/04/2024 4:56 PM [facility] Potassium 4.2 3.5 - 4.5 mmol/L 03/04/2024 4:56 PM [facility] Chloride 110(H) 98 - 107 mmol/L 03/04/2024 4:56 PM [facility] CO2 26 22 - 29 mmol/L 03/04/2024 4:56 PM [facility] Glucose 121(H) 70 - 99 mg/dL 03/04/2024 4:56 PM [facility] Calcium 9.6 8.4 - 10.2 mg/dL 03/04/2024 4:56 PM [facility] Protein Total 7.1 6.0 - 8.3 g/dL 03/04/2024 4:56 PM [facility] Albumin 3.8 3.4 - 5.0 g/dL 03/04/2024 4:56 PM [facility] Bilirubin Total 0.4 0.2 - 1.2 mg/dL 03/04/2024 4:56 PM [facility] Alkaline Phosphatase 130 40 - 150 U/L 03/04/2024 4:56 PM [facility] ALT 17 5 - 55 U/L 03/04/2024 4:56 PM [facility] AST 14 5 - 34 U/L 03/04/2024 4:56 PM [facility] Anion Gap 5(L) 6 - 16 03/04/2024 4:56 PM [facility] BUN/Creatinine Ratio 13 7 - 23 03/04/2024 4:56 PM [facility] Osmolality Calculated 294 275 - 295 mOsm/kg 03/04/2024 4:56 PM [facility] Albumin/Globulin Ratio 1.2 1.1 - 2.3 03/04/2024 4:56 PM [facility] eGFR by CKD-EPI 68(L) >=90 mL/min/1.7 3 m2 03/04/2024 4:56 PM [facility] Blood BLOOD SPECIMEN / Unknown Lab Venipuncture / Unknown 03/04/2024 4:13 PM SLITTER SCORER 03/04/2024 4:27 PM [facility] Cindy Garcia MD LAB - CHEMISTRY ORDE JOCELIN [facility] [address] [place] [address], [facility] [phone] * (ABNORMAL) CBC W/ DIFFERENTIAL (03/04/2024 4:13 PM SLITTER SCORER) WBC 1.0(L) 4.0 - 10.7 x10E9/L 03/04/2024 5:03 PM [facility] RBC Count 4.39 4.30 - 5.80 x10E12/L 03/04/2024 5:03 PM [facility] Hemoglobin 12.5(L) 13.3 - 17.5 g/dL 03/04/2024 5:03 PM [facility] Hematocrit 38.8 38.7 - 51.1 % 03/04/2024 5:03 PM [facility] MCV 88.4 80.0 - 98.0 fL 03/04/2024 5:03 PM [facility] MCH 28.5 26.7 - 33.6 pg 03/04/2024 5:03 PM [facility] MCHC 32.2 31.7 - 36.3 g/dL 03/04/2024 5:03 PM [facility] RDW-CV 16.8(H) 11.3 - 14.8 % 03/04/2024 5:03 PM [facility] Platelet Count 110(L) 150 - 420 x10E9/L 03/04/2024 5:03 PM [facility] MPV 12.4(H) 7.8 - 11.4 fL 03/04/2024 5:03 PM [facility] Blood BLOOD SPECIMEN / Unknown Lab Venipuncture / Unknown 03/04/2024 4:13 PM SLITTER SCORER 03/04/2024 4:27 PM SLITTER SCORER Cindy Garcia MD LAB - HEMATOLOGY ORD ERABLES Performing Organization Address City/[facility] Co de Phone Number [facility] [address] [place] [address], [facility] [phone] documented in this encounter Visit Diagnoses Diagnosis Neutropenia, unspecified type (HCC)- Primary documented in this encounter Care Teams Communications Consultant Relationship Specialty Start Date End Date Timothy Banks MD [address] [place] [address] PCP - General 10/19/18 documented as of this encounter
--- OUTSIDE RECORDS SUMMARY | 2024-04-11 13:51 | XMS_ITS | Encounter Summary ---
Author Organization [facility] Address [address] [place] [address] Care Team Providers Care Elevator Serviceman Name Role Phone Timothy Banks MD Primary Care Provider [phone] Encounter Details Date Type Department Care Team (Latest Contact Info) Description 03/04/2024 Travel Social History Tobacco Use Types Packs/Day Years Used Date Smoking Tobacco: Never Assessed Sex and Gender Information Value Date Recorded Sex Assigned at Male 03/05/2024 8:04 AM RUBY ON RAILS ENGINEER Gender Identity Male 03/05/2024 8:04 AM RUBY ON RAILS ENGINEER Sexual Orientation Straight 03/05/2024 8: 04 AM RUBY ON RAILS ENGINEER documented as of this encounter Plan of Treatment Upcoming Encounters Date Type Department Care Team (Late st Contact Info) Description 04/15/2024 8:30 AM RUBY ON RAILS ENGINEER Hospital Encounter [facility] [address] [place] [phone] 04/16/2024 9:00 AM RUBY ON RAILS ENGINEER Hospital Encounter [facility] [address] [place] [address] 04/17/2024 8:30 AM RUBY ON RAILS ENGINEER Appointment [facility] [address] [place] [phone] 04/18/2024 9:30 AM RUBY ON RAILS ENGINEER Appointment [facility] [address] [place] [address] 04/18/2024 10:30 AM RUBY ON RAILS ENGINEER Office Visit [facility] - Hematology/Oncology [address] [place] [phone] Cindy Garcia MD [address] [place] [address] 04/19/2024 9:00 AM RUBY ON RAILS ENGINEER Appointment [facility] [address] [place] [address] 05/13/2024 9:00 AM RUBY ON RAILS ENGINEER Appointment [facility] [address] [place] [address] 05/28/2024 10:00 AM RUBY ON RAILS ENGINEER Office Visit [facility] - Nephrology [address] [facility] [place] [address] Cindy Garcia MD [address] [place] [address] Santiago Meraz MD [address] [place] [address] documented as of this encounter Visit Diagnoses Not on filedocumented in this encounter Care Teams Elevator Serviceman Relationship Specialty Start Date End Date Timothy Banks MD [address] [place] [address] PCP - General 10/19/18 documented as of this encounter
--- OUTSIDE RECORDS SUMMARY | 2024-04-11 13:51 | XMS_ITS | Encounter Summary ---
Author Organization [facility] Address [address] [place] [place] [address] Care Team Providers Care Exhibit Preparator Name Role Phone Timothy Banks MD Primary Care Provider [phone] Reason for Visit * Reason Onset Date Comments Appointment 03/01/2024 Patient has comf [facility] Encounter Details Date Type Department Care Team (Late st Contact Info) Description 03/01/2024 Telephone [facility] - Hematology/Oncology [address] [place] [phone] Cindy Mansfield MA Appointment (Patient has comfirmed) Social History Tobacco Use Types Packs/Day Years Used Date Smoking Tobacco: Never Assessed Sex and Gender Information Value Date Recorded Sex Assigned at Male 03/05/2024 8:04 AM LADLE PULLER Gender Identity Male 03/05/2024 8:04 AM LADLE PULLER Sexual Orientation Straight 03/05/2024 8: 04 AM LADLE PULLER documented as of this encounter Plan of Treatment Upcoming Encounters Date Type Department Care Team (Late st Contact Info) Description 04/15/2024 8:30 AM LADLE PULLER Hospital Encounter [facility] [address] [place] [phone] 04/16/2024 9:00 AM LADLE PULLER Hospital Encounter [facility] [address] [place] [phone] 04/17/2024 8:30 AM LADLE PULLER Appointment [facility] [address] [place] [address] 04/18/2024 9:30 AM LADLE PULLER Appointment [facility] [address] [place] [phone] 04/18/2024 10:30 AM LADLE PULLER Office Visit [facility] - Hematology/Oncology [address] [place] [address] Cindy Garcia MD [address] [place] [address] 04/19/2024 9:00 AM LADLE PULLER Appointment [facility] [address] [place] [address] 05/13/2024 9:00 AM LADLE PULLER Appointment [facility] [address] [place] [phone] 05/28/2024 10:00 AM LADLE PULLER Office Visit [facility] - Nephrology [address] [facility] [place] [address] Cindy Garcia MD [address] [place] [address] Santiago Meraz MD [address] [place] [address] documented as of this encounter Visit Diagnoses Not on filedocumented in this encounter Care Teams Exhibit Preparator Relationship Specialty Start Date End Date Timothy Banks MD [address] [place] [phone] PCP - General 10/19/18 documented as of this encounter
--- OUTSIDE RECORDS SUMMARY | 2024-04-11 13:51 | XMS_ITS | Encounter Summary ---
Author Organization [facility] Address [address] [facility] [place] [address] Care Team Providers Care Nursing Officer Name Role Phone Timothy Banks MD Primary Care Provider [phone] Reason for Visit * Reason Onset Date Comments Medication Prior Auth Request 03/14/2024 Encounter Details Date Type Department Care Team (Late st Contact Info) Description 03/14/2024 Telephone [facility] - Hematology/Oncology [address] [place] [address] Cindy Garcia MD [address] [place] [address] Medication Prior Auth Request Social [...] and heating? Not hard at all 03/13/2024 [facility] [place] of Occupat ional Health - Occupational Stress [...] in the [facility] m [facility], were you homeless or living in a prison (including now)? No 03/13/2024 Sex and Gender Information Value Date Recorded Sex Assigned at Male 03/05/2024 8:04 AM FLAT IRONER Gender Identity Male 03/05/2024 8:04 AM FLAT IRONER Sexual Orientation Straight 03/05/2024 8: 04 AM FLAT IRONER documented as of this encounter Functional Status [...] via: Cover My Meds (Dawson:[email or web address]) Insurance: KANDI IRONER documented in this encounter Plan of Treatment Upcoming Encounters Date Type Department Care Team (Late st Contact Info) Description 04/15/2024 8:30 AM FLAT IRONER Hospital Encounter [facility] [address] [place] [address] 04/16/2024 9:00 AM FLAT IRONER Hospital Encounter [facility] [address] [place] [address] 04/17/2024 8:30 AM FLAT IRONER Appointment [facility] [address] [place] [address] 04/18/2024 9:30 AM FLAT IRONER Appointment [facility] [address] [place] [address] 04/18/2024 10:30 AM FLAT IRONER Office Visit [facility] - Hematology/Oncology [address] [place] [phone] Cindy Garcia MD [address] [place] [address] 04/19/2024 9:00 AM FLAT IRONER Appointment [facility] [address] [place] [address] 05/13/2024 9:00 AM FLAT IRONER Appointment [facility] [address] [place] [address] 05/28/2024 10:00 AM FLAT IRONER Office Visit [facility] - Nephrology [address] [facility] [place] [address] Cindy Garcia MD [address] [place] [address] Santiago Meraz MD [address] [place] [address] documented as of this encounter Visit Diagnoses Not on filedocumented in this encounter Care Teams Nursing Officer Relationship Specialty Start Date End Date Timothy Banks MD [address] [place] [address] PCP - General 10/19/18 documented as of this encounter
--- OUTSIDE RECORDS SUMMARY | 2024-04-11 13:51 | XMS_ITS | Encounter Summary ---
Author Organization [facility] Address [address] [place] [address] Care Team Providers Care Senior Datastage Developer Name Role Phone Timothy Banks MD Primary Care Provider [phone] Reason for Visit * Reason Onset Date Comments Medication Prior Auth Request 03/14/2024 Encounter Details Date Type Department Care Team (Late st Contact Info) Description 03/14/2024 Telephone [facility] - Hematology/Oncology [address] [place] [address] Cindy Garcia MD [address] [place] [address] Medication Prior Auth Request Social [...] and heating? Not hard at all 03/13/2024 [facility] [place] of Occupat ional Health - Occupational Stress [...] any time in the past 12 m [facility], were you homeless or living in a long-term (including now)? No 03/13/2024 Sex and Gender Information Value Date Recorded Sex Assigned at Male 03/05/2024 8:04 AM PHARMACY CONSULTANT Gender Identity Male 03/05/2024 8:04 AM PHARMACY CONSULTANT Sexual Orientation Straight 03/05/2024 8: 04 AM PHARMACY CONSULTANT documented as of this encounter Functional Status [...] - Pending Submitted via: Cover My Meds (Dawson:[email or web address]) Insurance: KANDI Helpdesk: [phone] MACY CONSULTANT documented in this encounter Plan of Treatment Upcoming Encounters Date Type Department Care Team (Late st Contact Info) Description 04/15/2024 8:30 AM PHARMACY CONSULTANT Hospital Encounter [facility] [address] [place] [address] 04/16/2024 9:00 AM PHARMACY CONSULTANT Hospital Encounter [facility] [address] [place] [address] 04/17/2024 8:30 AM PHARMACY CONSULTANT Appointment [facility] [address] [place] [address] 114[address] 04/18/2024 9:30 AM PHARMACY CONSULTANT Appointment [facility] [address] [place] [address] 04/18/2024 10:30 AM PHARMACY CONSULTANT Office [facility] - Hematology/Oncology [address] [place] [phone] Cindy Garcia MD [address] [place] [address] 04/19/2024 9:00 AM PHARMACY CONSULTANT Appointment [facility] [address] [place] [address] 05/13/2024 9:00 AM PHARMACY CONSULTANT Appointment [facility] [address] [place] [address] 05/28/2024 10:00 AM PHARMACY CONSULTANT Office Visit [facility] - Nephrology [facility] [place] [address] Cindy Garcia MD [address] [place] [address] Santiago Meraz MD [facility] [place] [address] documented as of this encounter Visit Diagnoses Not on filedocumented in this encounter Care Teams Senior Datastage Developer Relationship Specialty Start Date End Date Timothy Banks MD [address] [place] [address] PCP - General 10/19/18 documented as of this encounter
--- OUTSIDE RECORDS SUMMARY | 2024-04-11 13:51 | XMS_ITS | Encounter Summary ---
Author Organization [facility] Address [address] [facility] [place] [address] Care Team Providers Care Real Estate Attorney Name Role Phone Timothy Banks MD Primary Care Provider [phone] Cindy Garcia MD Unavailable Encounter Details Date Type Department Care Team (Late st Contact Info) Description 02/12/2024 Lab Requisition [facility] - Pathology Lab [address] [place] [address] Rommel Dinh MD [address] [facility] [address] [place] [address] Decreased white blood cell count, unspecified Social History Tobacco Use Types Packs/Day Years Used Date Smoking Tobacco: Never Assessed Sex and Gender Information Value Date Recorded Sex Assigned at Male 03/05/2024 8:04 AM GAMEPLAY ENGINEER Gender Identity Male 03/05/2024 8:04 AM GAMEPLAY ENGINEER Sexual Orientation Straight 03/05/2024 8: 04 AM GAMEPLAY ENGINEER documented as of this encounter Plan of Treatment Upcoming Encounters Date Type Department Care Team (Late st Contact Info) Description 04/15/2024 8:30 AM GAMEPLAY ENGINEER Hospital Encounter [facility] [address] [place] [address] 04/16/2024 9:00 AM GAMEPLAY ENGINEER Hospital Encounter [facility] [address] [place] [address] 04/17/2024 8:30 AM GAMEPLAY ENGINEER Appointment [facility] [address] [place] [address] 04/18/2024 9:30 AM GAMEPLAY ENGINEER Appointment [facility] [address] [place] [address] 89[address] 04/18/2024 10:30 AM GAMEPLAY ENGINEER Office Visit [facility] - Hematology/Oncology [address] [place] [phone] Cindy Garcia MD [address] [place] [address] 04/19/2024 9:00 AM GAMEPLAY ENGINEER Appointment [facility] [address] [place] [address] 05/13/2024 9:00 AM GAMEPLAY ENGINEER Appointment [facility] [address] [place] [address] 05/28/2024 10:00 AM GAMEPLAY ENGINEER Office Visit [facility] - Nephrology [address] [place] [phone] Cindy Garcia MD [address] [place] [address] Santiago Meraz MD [address] [place] [address] documented as of this encounter Procedures Procedure Name Priority Date/Time Associated Diagnosis Comments FLOW CYTOMETRY BONE MARROW Routine 02/12/2024 9:20 AM GAMEPLAY ENGINEER Decreased white blood cell count, unspecified documented in this encounter Results * FLOW CYTOMETRY BONE MARROW (02/12/2024 9:20 AM GAMEPLAY ENGINEER) Case Report Flow Cytometry ?Case: [id number] ? Authorizing Provider: ??Rommel Dinh ? Collected: ? 02/12/2024 09:20 AM ? MD Luke ? Ordering Location: ? [facility] - ??Received: ?02/12/2024 12:12 PM ? Pathology Lab ? Pathologist: ? Daniela Bronson MD ? Specimen: ?Bone Marrow ? 02/12/2024 3:44 PM GAMEPLAY ENGINEER U PATHOLOGY LAB Final Diagnosis Bone marrow, flow [...] on 02/12/2024 at 1539. 02/12/2024 3:44 PM [facility] Flow Cytometry Interpretation Viability: 97% [...] flow cytometry specimen has been reviewed for senior quality control technician purposes. Review the bone marrow aspirate smears reveals 20% blasts with only rare promyelocytes identified. Carolyn rods are not seen. 02/12/2024 3:44 PM [facility] Flow Cytometry Results Differential Result Comment Flow Cell Count /uL 20,700 Total Viability % 97.0 Lymphocytes % 12 Dim CD45 Region % 44 Monocytes % 1 Granulocytes % 42 02/12/2024 3:44 PM [facility] Reason for test Decreased white blood cell count, unspecified 02/12/2024 3:44 PM [facility] Client Specimen ID # [id number] 02/12/2024 3:44 PM [facility] Number of markers 29 were [...] CD56 A-20 Flow CD64 A-28 cyCD22 A-29 oiOA69c A-16 Gay+CD19+ A-17 Lambda+CD19+ A-24 Flow HLA-DR A-25 Flow MPO A-26 Flow TdT A-27 cyCD3 02/12/2024 3:44 PM [facility] Pathologist Location at [facility] 02/12/2024 3:44 PM [facility] PATH[facility]Y LAB Disclaimer Test performed at [facility], [address] [place] [address], [id number]. *The established laboratory minimum viability is 70%. [...] high complexity clinical testing. 02/12/2024 3:44 PM [facility] LAB Embedded Images 3:44 PM [facility] LAB Pathology/Cytolo gy BONE MARROW SPECIMEN / Unknown 02/12/2024 9:20 AM GAMEPLAY ENGINEER 02/12/2024 12:12 PM GAMEPLAY ENGINEER Rommel Dinh MD LAB - PATHO LOGY/CYTOLOGY ORDERABLES Performing Organization Address City/State/[facility] Co de Phone Number [facility] LAB [address] [place] [address] documented in this encounter Visit Diagnoses Diagnosis Decreased white blood cell count, unspecified documented in this encounter Care Teams Real Estate Attorney Relationship Specialty Start Date End Date Timothy Banks MD [address] [place] [address] PCP - General 10/19/18 Cindy Garcia MD [address] [place] [address] Burglar Alarm Assembler/Oncologis t Hematology and Oncology 03/24/24 documented as of this encounter
--- OUTSIDE RECORDS SUMMARY | 2024-04-11 13:51 | XMS_ITS | Encounter Summary ---
Author Organization [facility] Address [address] [place] [address] Care Team Providers Care Talent Manager Name Role Phone Timothy Banks MD Primary Care Provider [phone] Cindy Garcia MD Unavailable Encounter Details Date Type Department Care Team (Late st Contact Info) Description 02/13/2024 Lab Requisition [facility] - Pathology Lab [address] [place] [address] Rommel Dinh MD [address] [facility] [address] [place] [address] Illness, unspecified Social History Tobacco Use Types Packs/Day Years Used Date Smoking Tobacco: Never Assessed Sex and Gender Information Value Date Recorded Sex Assigned at Male 03/05/2024 8:04 AM TIRE ROOM SUPERVISOR Gender Identity Male 03/05/2024 8:04 AM TIRE ROOM SUPERVISOR Sexual Orientation Straight 03/05/2024 8: 04 AM TIRE ROOM SUPERVISOR documented as of this encounter Plan of Treatment Upcoming Encounters Date Type Department Care Team (Late st Contact Info) Description 04/15/2024 8:30 AM TIRE ROOM SUPERVISOR Hospital Encounter [facility] [address] [place] [address] 04/16/2024 9:00 AM TIRE ROOM SUPERVISOR Hospital Encounter [facility] [address] [place] [address] 04/17/2024 8:30 AM TIRE ROOM SUPERVISOR Appointment [facility] [address] [place] [address]189 04/18/2024 9:30 AM TIRE ROOM SUPERVISOR Appointment [facility] [address] [place] [address] 04/18/2024 10:30 AM TIRE ROOM SUPERVISOR Office Visit [facility] - Hematology/Oncology [address] [place] [phone] Cindy Garcia MD [address] [place] [address] 04/19/2024 9:00 AM TIRE ROOM SUPERVISOR Appointment [facility] [address] [place] [address] 05/13/2024 9:00 AM TIRE ROOM SUPERVISOR Appointment [facility] [address] [place] [address] 05/28/2024 10:00 AM TIRE ROOM SUPERVISOR Office Visit [facility] - Nephrology [address] [place] [phone] Cindy Garcia MD [address] [place] [address] [place] [address] [place] [address] documented as of this encounter Procedures Procedure Name Priority Date/Time Associated Diagnosis Comments BONE MARROW BIOPSY (STL) Routine 02/12/2024 9:20 AM TIRE ROOM SUPERVISOR Illness, unspecified documented in this encounter Results * BONE MARROW BIOPSY (STL) (02/12/2024 9:20 AM TIRE ROOM SUPERVISOR) Case Report Bone Marrow Patholog y Report ?Case: [id number] ? Authorizing Provider: ??Rommel Dinh ? Collected: ? 02/12/2024 09:20 AM ? MD Luke ? Ordering Location: ? [facility] - ??Received: ?02/13/2024 12:34 PM ? Pathology Lab ? Pathologist: ? Daniela Bronson, MD ? Specimens: ?? A) - Bone Marrow Clot ? B) - Bone Marrow Core ? 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 02/14/2024 1:43 PM [facility] Peripheral Smear Description The patient's [...] including numerous giant platelets. 02/14/2024 1:43 PM [facility] Bone Marrow Aspirate [...] stain): no ring sideroblasts. 02/14/2024 1:43 PM [facility] Bone Marrow Core [...] similar to core biopsy. 02/14/2024 1:43 PM [facility] Flow Cytometry Summary Flow cytometry identified 35% myeloblasts and no diagnostic immunophenotypic evidence of monoclonal B-cells, an aberrant T-cell population, or plasma cell neoplasm ([id number]). 02/14/2024 1:43 PM [facility] Clinical History Chronic leukopenia 02/14/2024 1:43 PM [facility] Materials Received Received are 19 slide(s) and 3 blocks labeled [id number] along with a copy of the outside pathology report. The materials originate from [place] [id number]. All original materials are returned to the referring institution, along with a copy of our final report. 02/14/2024 1:43 PM [facility] Microscopic Description CD34 immunohistochemistry stains [...] sections reveal absent stores. 02/14/2024 1:43 PM [facility] Pathologist Location at [facility] 02/14/2024 1:43 PM [facility] Disclaimer The performance characteristics of all immunohistochemical and indirect immunofluorescence stains (if any) cited in this report were determined by the Histopathology [facility] of [facility]. Some of these tests were developed by [...] the attending (teaching) pathologist. 02/14/2024 1:43 PM [facility] Embedded Images 02/14/2024 1:43 PM [facility] Pathology/Cytology BONE MARROW SPECIMEN / Unknown 02/12/2024 9:20 AM TIRE ROOM SUPERVISOR 02/13/2024 12:34 PM TIRE ROOM SUPERVISOR Miscellaneous samples (specimen) BONE MARROW SPECIMEN / Unknown 02/12/2024 9:20 AM TIRE ROOM SUPERVISOR 02/13/2024 12:34 PM TIRE ROOM SUPERVISOR Rommel Dinh MD LAB - PATHO LOGY/CYTOLOGY ORDERABLES Performing Organization Address City/State/[facility] Co de Phone Number [facility] [address] [phone] documented in this encounter Visit Diagnoses Diagnosis Illness, unspecified documented in this encounter Care Teams Talent Manager Relationship Specialty Start Date End Date Timothy Banks MD [address] [place] [address] PCP - General 10/19/18 Cindy Garcia MD [address] [place] [address] Processor Helper/Oncologis t Hematology and Oncology 03/24/24 documented as of this encounter
--- OUTSIDE RECORDS SUMMARY | 2024-04-11 13:51 | XMS_ITS | Encounter Summary ---
Author Organization [facility] Address [address] [facility] [place] [address] Care Team Providers Care Hand I Cutter Name Role Phone Timothy Banks MD Primary Care Provider [phone] Encounter Details Date Type Department Care Team [...] and heating? Not hard at all 03/13/2024 [facility] [place] of Occupat ional Health - Occupational Stress [...] any time in the past 12 m [facility], were you homeless or living in a retirement (including now)? No 03/13/2024 Sex and Gender Information Value Date Recorded Sex Assigned at Male 03/05/2024 8:04 AM CASE FOLDER Gender Identity Male 03/05/2024 8:04 AM CASE FOLDER Sexual Orientation Straight 03/05/2024 8: 04 AM CASE FOLDER documented as of this encounter Plan of Treatment Upcoming Encounters Date Type Department Care Team (Late st Contact Info) Description 04/15/2024 8:30 AM CASE FOLDER Hospital Encounter [facility] [address] [place] [address] 04/16/2024 9:00 AM CASE FOLDER Hospital Encounter [facility] [address] [place] [address] 04/17/2024 8:30 AM CASE FOLDER Appointment [facility] [address] [place] [phone] 04/18/2024 9:30 AM CASE FOLDER Appointment [facility] [address] [place] [address] 04/18/2024 10:30 AM CASE FOLDER Office Visit [facility] - Hematology/Oncology [address] [place] [phone] Cindy Garcia MD [address] [place] [address] 12861 04/19/2024 9:00 AM CASE FOLDER Appointment [facility] [address] [place] [address] 05/13/2024 9:00 AM CASE FOLDER Appointment [facility] [address] [place] [address] 05/28/2024 10:00 AM CASE FOLDER Office Visit [facility] - Nephrology [address] [facility] [place] [address] Cindy Garcia MD [address] [place] [address] Santiago Meraz MD [address] [place] [address] documented as of this encounter Visit Diagnoses Not on filedocumented in this encounter Care Teams Hand I Cutter Relationship Specialty Start Date End Date Timothy Banks MD [address] [place] [phone] PCP - General 10/19/18 documented as of this encounter
--- OUTSIDE RECORDS SUMMARY | 2024-04-11 13:51 | XMS_ITS | Encounter Summary ---
Author Organization [facility] Address [address] [place] [address] Care Team Providers Care Chief Investigator Name Role Phone Timothy Banks MD Primary Care Provider [phone] Cindy Garcia MD Unavailable Encounter Details Date Type Department Care Team (Late st Contact Info) Description 09/28/2023 Lab Requisition [facility] - DermPath Lab [address] [place] [id number] Timothy Banks MD [address] [place] [address] Social History Tobacco Use Types Packs/Day Years Used Date Smoking Tobacco: Never Assessed Sex and Gender Information Value Date Recorded Sex Assigned at Male 03/05/2024 8:04 AM [employer] Gender Identity Male 03/05/2024 8:04 AM [employer] Sexual Orientation Straight 03/05/2024 8: 04 AM [employer] documented as of this encounter Plan of Treatment Upcoming Encounters Date Type Department Care Team (Late st Contact Info) Description 04/15/2024 8:30 AM [employer] Hospital Encounter [facility] [address] [place] [phone] 04/16/2024 9:00 AM [employer] Hospital Encounter [facility] [address] [place] [phone] 04/17/2024 8:30 AM [employer] Appointment [facility] [address] [place] [phone] 04/18/2024 9:30 AM [employer] Appointment [facility] [address] [place] [phone] 04/18/2024 10:30 AM [employer] Office Visit [facility] - Hematology/Oncology [address] [place] [phone] Cindy Garcia MD [address] [place] [phone] 04/19/2024 9:00 AM [employer] Appointment [facility] [address] [place] [phone] 05/13/2024 9:00 AM [employer] Appointment [facility] [address] [place] [phone] 05/28/2024 10:00 AM [employer] Office Visit [facility] - Nephrology [address] [place] [address] Cindy Garcia MD [address] [place] [phone] Santiago Meraz MD [address] [place] [address] documented as of this encounter Procedures Procedure Name Priority Date/Time Associated Diagnosis Comments DERMATOPATHOLOGY Routine 09/27/2023 12:0 0 AM CDT documented in this encounter Results * DERMATOPATHOLOGY (09/27/2023 12:00 AM CDT) Case Report Dermatopathology Report ? Case: [id number] ? Authorizing Provider: ??Timothy Banks MD ? Collected: ? 09/27/2023 12:00 AM ? Ordering Location: ? [facility] - ??Received: ?09/28/2023 10:46 AM [...] specimen consists of a shave biopsy measuring 58w18e0 mm. Jar 0. Specimen B: Received is [...] characteristic determined by the Dermatopathology Laboratory at [facility], directed by Dr. Randall Pringle. These tests need not be, and therefore are not, approved by the [place] Food and Drug Administration. The tests are used for clinical purposes. Billing Codes Specimen Charges Stain Charges 71116 [id number] 1 1 4 12:35 PM CDT DERMATOPATHOLOGY LABORATORY Embedded Images 4 12:35 PM T DERMATOPATHOLOGY LABORATORY Pathology/Cytology TISSUE SPECIMEN FROM SKIN / Unknown 09/27/2023 09/28/2023 10:46 AM CDT Miscellaneous samples (specimen) TISSUE SPECIMEN FROM SKIN / Unknown 09/27/2023 09/28/2023 10:46 AM CDT Timothy Banks MD LAB - PATHOLOGY/CYTO LOGY ORDERABLES DERMATOPATHOLOGY LABORATORY [facility] - Department of Dermatology [facility]ly [facility] Medicine [address] [facility], [address]rd Floor [place], [place] [id number] [place] [address] documented in this encounter Visit Diagnoses Not on filedocumented in this encounter Care Teams Chief Investigator Relationship Specialty Start Date End Date Timothy Banks MD [address] [place] [phone] PCP - General 10/19/18 Cindy Garcia MD [address] [place] [address] [employer]/Oncologis t Hematology and Oncology 03/24/24 documented as of this encounter
--- OUTSIDE RECORDS SUMMARY | 2024-04-11 13:51 | XMS_ITS | Encounter Summary ---
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) Procedures EKG 12-LEAD José Luis Gomez APRN-CNP [address] [place] [address] Referral ID Status Reason Start Date Expiration Date V isits Requested Visits Authorized [id number] Pending Review 03/23/2024 03/23/2025 1 1 FF COMPILING CLERK * Consultation (Urgent) - Closed Specialty Diagnoses / Procedures Referred By Marilee gautam Referred To Contact Transitional Care Diagnoses MDS (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, 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) José Luis Gomez APRN-CNP [address] [place] [address] [facility] [address] [place] [address] Referral ID Status Reason Start Date Expiration Date V isits Requested Visits Authorized [id number] Closed Specialty Services Required 03/23/2024 03/23/2025 1 1 FF COMPILING CLERK Reason for Visit * Auth/Cert (Routine) Specialty Diagnoses / Procedures Referred By Marilee t Referred To Contact Diagnoses AML Referral ID Status Reason Start Date Expiration Date Visits Re quested Visits Authorized [id number] 1 1 Encounter Details Date Type Department Care Team (Late st Contact Info) Description 03/13/2024 7:14 PM TARIFF COMPILING CLERK - 03/23/2024 1:56 PM TARIFF COMPILING CLERK Hospital Encounter [facility] 7N ACUTE [address] [place] [id number] Cindy Garcia MD [address] [place], [place] [id number] Rayne Dent MD [address] [place] [address] Rodo Perez MD [address] [place] [phone] Josh Zapata MD [address] [place] [address] Internal Medicine Discharge Disposition: Home [...] and heating? Not hard at all 03/13/2024 [facility] [place] [facility] Occupat ional [facility] - Occupational Stress [...] any time in the past 12 m [facility], were you homeless or living in a penitentiary (including now)? No 03/13/2024 Sex and Gender Information Value Date Recorded Sex Assigned at Male 03/05/2024 8:04 AM TARIFF COMPILING CLERK Gender Identity Male 03/05/2024 8:04 AM TARIFF COMPILING CLERK Sexual Orientation Straight 03/05/2024 8: 04 AM TARIFF COMPILING CLERK documented as of this encounter Last Filed Vital Signs Vital Sign Reading Time Taken Comments Blood Pressure 111/56 03/23/2024 10:27 AM TARIFF COMPILING CLERK Pulse 72 03/23/2024 10:27 AM TARIFF COMPILING CLERK Temperature 36.9 ??C (98.5 ??F) 03/23/2024 10:[address] Respiratory Rate 18 03/23/2024 10:27 AM TARIFF COMPILING CLERK Oxygen Saturation 96% 03/23/2024 10:27 AM TARIFF COMPILING CLERK Inhaled Oxygen Concentration - - Weight 99 kg (218 lb 3.2 oz) 03/23/2024 4:16 AM TARIFF COMPILING CLERK Height 182.9 cm (6') 03/15/2024 12:17 PM TARIFF COMPILING CLERK Body Mass Index 29.59 03/15/2024 12:17 PM TARIFF COMPILING CLERK documented in this encounter Functional Status Functional [...] this encounter Discharge Summaries * José Luis Gomez STEEL PLATE PRINTER-COMMUNITY RELATIONS COORDINATOR - 03/23/2024 9:52 AM CST Hospital Discharge Summary Patient ID: Russ Burciaga [id number] 78 year old 1945 Admit date: 03/13/2024 [...] HTN, GERD, and CAD who presented to [facility] as a direct admission from oncology for [...] Your Medications These medications were sent to [facility] [address] [address] allopurinol 300 MG tablet apixaban 2.5 MG [...] You have a follow up appointment with [facility] Dr. Garcia scheduled (see below). --If your labs show that your platelet count drops below 30-50 (thousand), you should make sure to follow up with the oncologists as you will likely need to hold/stop taking your eliquis (blood thinner). FOLLOW-UP: Future Appointments Monday April 01, 2024 2:00 PM (Arrive by 1:45 PM) Appointment with Cindy Garcia at [facility] - Hematology/Oncology [phone] [address] [facility] [address] As directed Outpatient Referral: Ref to [facility] Transitional Care Follow up with bridge clinic here at [facility] ([facility]) in 1-2 weeks after discharge. They [...] the appointment. If you need to call [facility] for any reason, you may reach us at [phone] and dial 0 for the header set up operator. DISCHARGE MEDICATIONS: Your medications are listed on the After Visit Summary and your nurse should any questions you may have with you prior to discharge. If you have any questions about your medications, please be sure to ask the pharmacy when you apple picker your prescription. You may also call [...] the nearest emergency room or call EMS ([phone]). Thanks! Internal Medicine Department [address] [address] Signed: SAMREEN Garg 03/23/2024 Time spent on discharge: 60 minutes. Time was spent on preparation of reviewing chart, prescriptions, counseling patient, working with social work and nursing, discussion with family, documentation. FF COMPILING CLERK documented in this encounter Discharge Instructions * Discharge Instructions* José Luis Gomez APRN-CNP - 03/17/2024 1:17 PM TARIFF COMPILING CLERK Russ Burciaga, HOSPITAL COURSE: You were admitted [...] You have a follow up appointment with [facility] Dr. Garcia scheduled (see below). --If your labs show that your platelet count drops below 30-50 (thousand), you should make sure to follow up with the oncologists as you will likely need to hold/stop taking your eliquis (blood thinner). FOLLOW-UP: Future Appointments Monday April 01, 2024 2:00 PM (Arrive by 1:45 PM) Appointment with Cindy Garcia at [facility] - Hematology/Oncology ([phone]) [address] [facility] [address] As directed Outpatient Referral: Ref to [facility] Transitional Care Follow up with bridge clinic here at [facility] ([facility]) in 1-2 weeks after discharge. They [...] the appointment. If you need to call [facility] for any reason, you may reach us at [phone] and dial 0 for the header set up operator. DISCHARGE MEDICATIONS: Your medications are listed on the After Visit Summary and your nurse should any questions you may have with you prior to discharge. If you have any questions about your medications, please be sure to ask the pharmacy when you apple picker your prescription. You may also call [...] call EMS ([phone]). Thanks! Internal Medicine Department [address] [address] FF COMPILING CLERK documented in this encounter Medications at Time [...] ondansetron, disintegrating, (Zofran ODT) 8 MG tabletIndications:Ac [place] myeloid leuk w multilin dysplasia, not achieve [...] 03/23/2024 03/26/2024 venetoclax (Venclexta) 100 MG tabletIndications:Ac [place] Myelocytic Leukemia Take 1 (one) tablet by [...] Monday 2:00 PM (Arrive by 1:45 PM) [facility] - Hematology/Oncology [address] [facility] [id number] Family Support (Name and Phone): Extended Emergency Contact Information Primary Emergency Contact: rajwinder burciaga Address: [address] Mobile Relation: Significant other Transportation at Discharge: Family: READMISSION RISK SCORE is 12* at 7:42 AM 03/25/2024.: Name: Teresita Bolden RN FF COMPILING CLERK * Steffi Deluna RN - 03/22/2024 10:30 [...] Oral mucous membranes remain intact Description: INTERVENTIONS: 03/22/20242229 by Steffi Deluna RN Outcome: Progressing 03/22/20242229 by Steffi Deluna RN Outcome: Progressing Problem: Nutrient: Increased nutrient needs (specify) Goal: Total intake will meet estimated nutrient needs 03/22/20242229 by Steffi Deluna RN Outcome: Progressing 03/22/20242229 by Steffi Deluna RN Outcome: Progressing FF COMPILING CLERK * Steffi Deluna RN - 03/22/2024 10:30 [...] will meet estimated nutrient needs Outcome: Progressing FF COMPILING CLERK * José Luis Gomez APRN-CNP - 03/22/2024 11:32 AM CST Images from the original note were not included. [facility] Internal Medicine Progress Note Name: Russ Burciaga Room/Bed: [facility]/ : 1945 78 year old PCP: Timothy [...] HTN, GERD, and CAD who presented to [facility] as a direct admission from oncology for [...] mg 2.5 mg Oral BID Caity Ortiz APRN-COMMUNITY RELATIONS COORDINATOR 2.5 mg at 03/22/24 0838 decitabine (Dacogen) [...] mg 17.2 mg Oral QDAY Caity Ortiz APRN-COMMUNITY RELATIONS COORDINATOR 17.2 mg at 03/22/24 0838 valACYclovir (Valtrex) [...] BMP: Recent Labs Lab Units 03/22/24 0658 03/21/24 0347 03/20/24 1607 NA mmol/L 141 141 143 CL mmol/L 110* 110* 110* CO2 mmol/L 24 24 23 BUN mg/dL 11 15 16 CREATININE mg/dL 1.11 1.27* 1.32* CALCIUM mg/dL 8.6 8.6 8.9 Magnesium: Recent Labs Component Name 03/22/24 0658 03/21/24 0347 03/20/24 1607 MAGNESIUM 1.9 1.8 2.0 Phosphorus: Recent Labs Lab Units 03/22/24 0658 03/21/24 0347 03/20/24 1607 PHOS mg/dL 2.8 2.9 3.5 Coagulation: Recent Labs Lab Units 03/22/24 0658 03/21/24 0347 03/20/24 0628 PT Seconds 17.5* 17.4* 17.1* INR 1.5 1.5 1.4 Endocrine: No results for input(s): TSH , A1C in the last 168 hours. LFTs: Recent Labs Lab Units 03/22/24 0658 03/21/24 0347 03/20/24 1607 AST U/L 19 14 15 ALT U/L 25 18 18 TBILI mg/dL 0.9 0.9 0.7 ALB g/dL 2.9* 3.1* 3.3* Micro: Microbiology Results (Displays last 21 days for this encounter ONLY) Procedure Component Value - Date/Time CYTOMEGALOVIRUS (CMV) QUANTITATIVE PLASMA [[id number]] (Normal) Collected: 03/13/24 2326 Lab Status: Final [...] sharon CMV. QUINN-RICHMOND VIRUS QUANT BLOOD STL [[id number]] Collected: 03/13/242325 Lab Status: Final result Specimen: [...] reported as Detected (<35 IU/mL). Values greater zmqb803,000,000 IU/mL are reported as >100,000,000 IU/mL. The [...] 03/23 after chemo cycle complete. José Luis Jason [facility] Medicine ASCOM # [id number] (7a-5p) Non-urgent messages may be sent through [employer] Date of service: 03/22/2024 Attending Physician: Josh Zapata MD The total time spent was 40 minutes performing chart preparation, review of data and visit with thepatient, 80183: I addressed a chronic illness with severe exacerbation/progression/side effect and/or an acute illness/injury that poses a threat to life or bodily functions (as documented above), 45693/98999: I reviewed the results of a unique test, ordered a unique test, or performed an assessment requiring an independent historian (as documented above), and 96907/11229: I discussed the management of the patient and/or the interpretation of a test with nursing staff, the care coordination team and all relevant consultants. FF COMPILING CLERK * Kimi Mireles RD/SHASHANK - 03/22/2024 10:53 [...] (03/16/24 1530) Skin/Wound: WDL Estimated Needs: KCAL: 3793-9508 (30-35kcal/kg of IBW) Protein (g): 97-113 (1.2-1.4gm/kg of IBW) Fluid (ml): 1 ml/kcal Needs based on: Kcal/kg- (Comment) (81kg of IBW) Recommended Access Route: PO Labs: Recent Labs Component Name 03/22/2465703/21/2434603/20/24 1607 NA 141 141 143 POTASSIUM 3.8 3.8 4.1 CO2 24 24 23 BUN 11 15 16 CREATININE 1.11 1.27* 1.32* GLUCOSE 103* 115* 112* CALCIUM 8.6 8.6 8.9 ALT 25 18 18 ALKPHOS 97 100 110 AST 19 14 15 EGFR 68* 57* 55* Recent Labs Component Name 03/22/2458 03/21/2434603/20/24 1607 PHOS 2.8 2.9 3.5 Recent Labs Component Name 03/22/24657 03/21/24 0347 03/20/24 1607 MAGNESIUM 1.9 1.8 2.0 Recent Labs Component Name 03/22/24 0658 03/21/24 0347 03/20/24 0628 HGB 10.9* 10.8* 11.6* HCT 33.2* 32.7* 34.4* No results for input(s): HGBA1C in the last 79427 hours.No data found. MEDICATIONS FOR CURRENT ENCOUNTER: [...] LLE Edema: Mild pitting, slight indentation (03/22/24 0801) Nutrition Diagnostic Statement: Increased nutrient needs related [...] Goal Progress: New goal established Ascom 4535 FF COMPILING CLERK * Zach Johnson RN - 03/22/2024 10:43 [...] infections are decreased or avoided Outcome: Progressing FF COMPILING CLERK * Sandro Smith MD - 03/22/2024 6:56 [...] suggestive of acute leukemia but not a renewals representative sample due to low cellularity FISH [...] 2004: DVT/PE following hiatal hernia repair s/p Braxton [...] to contact hem/onc consult fellow via the header set up operator or AMION if any questions or clarifications. Don Smith MD Internal Medicine Resident [facility] FF COMPILING CLERK Associated attestation - Fab Lopez MD - 03/22/2024 4:17 PM TARIFF COMPILING CLERK ATTENDING ATTESTATION Date of service: 03/22/2024 I [...] Therapist Jorge Alberto Alaniz visited patient in [facility] room. Patient was observed sitting up in bed, alert and oriented. Patient's was present and participated throughout the session. During interventions, Patient smiled, sang, made eye contact, and moved in time with the music. Patient engaged in emotional expression and socializing after each intervention. At conclusion of session, no nonverbal indicators of distress observed. Jorge Alberto Alaniz [place] 03/21/2024 11:09 AM FF COMPILING CLERK * José Luis Gomez APRN-FAISAL - 03/21/2024 10:29 AM CST [facility] Internal Medicine Progress Note Name: Russ Burciaga Room/Bed: [facility]/ : 1945 78 year old PCP: Timothy [...] HTN, GERD, and CAD who presented to [facility] as a direct admission from oncology for [...] 1-10 mL Intracatheter PRN Ted Soler MD allopurinol (Zyloprim) tablet 300 mg 300 mg Oral QDAY AFTER BREAKFAST Sandro Smith MD 300 mg at 03/21/24 0908 apixaban (Eliquis) tablet 2.5 mg 2.5 mg Oral BID Caity Ortzi V., STEEL PLATE PRINTER-COMMUNITY RELATIONS COORDINATOR 2.5 mg at 03/21/24 0908 decitabine (Dacogen) [...] mg 17.2 mg Oral QDAY Caity Ortiz V., STEEL PLATE PRINTER-COMMUNITY RELATIONS COORDINATOR 17.2 mg at 908 valACYclovir (Valtrex) tablet 500 mg 500 mg [...] Value - Date/Time CYTOMEGALOVIRUS (CMV) QUANTITATIVE PLASMA [[id number]] (Normal) Collected: 03/13/24 2326 Lab Status: Final [...] sharon CMV. QUINN-RICHMOND VIRUS QUANT BLOOD STL [[id number]] Collected: 03/13/24 2326 Lab Status: Final result [...] reported as Detected (<35 IU/mL). Values greater fsdp603,000,000 IU/mL are reported as >100,000,000 IU/mL. The [...] 03/23 after chemo cycle complete. ROSANNA [facility] Medicine ASCOM # [id number] (7a-5p) Non-urgent messages may be sent through [employer] Date of service: 03/21/2024 Attending Physician: Josh Zapata MD The total time spent was 55 minutes performing chart preparation, review of data and visit with thepatient, 79824: I addressed a chronic illness with severe exacerbation/progression/side effect and/or an acute illness/injury that poses a threat to life or bodily functions (as documented above), /42351: I reviewed the results of a unique test, ordered a unique test, or performed an assessment requiring an independent historian (as documented above), and 78771/48045: I discussed the management of the patient and/or the interpretation of a test with nursing staff, the care coordination team and all relevant consultants. FF COMPILING CLERK * Teresita Bolden RN - 03/21/2024 7:33 [...] Primary Emergency Contact: rajwinder burciaga Address: [address] Mobile Relation: Significant other Transportation at Discharge: Family: READMISSION RISK SCORE is 10 at 7:33 AM 03/21/2024.: Name: Teresita Bolden RN FF COMPILING CLERK * Sandro Smith MD - 03/21/2024 7:03 [...] suggestive of acute leukemia but not a renewals representative sample due to low cellularity FISH [...] to contact hem/onc consult fellow via the header set up operator or AMION if any questions or clarifications. Don Smith MD Internal Medicine Resident [facility] FF COMPILING CLERK Associated attestation - Fab Lopez MD - 03/21/2024 2:58 PM TARIFF COMPILING CLERK ATTENDING ATTESTATION Date of service: 03/21/2024 I [...] membranes remain intact Description: INTERVENTIONS: Outcome: Progressing FF COMPILING CLERK * Caity Ortiz APRN-COMMUNITY RELATIONS COORDINATOR - 03/20/2024 3:01 PM CST Images from the original note were not included. [facility] Internal Medicine Progress Note Name: Russ Burciaga [...] 2022), HTN, GERD, CAD present the the [facility] on 03/13 as direct admission from Oncology [...] , CKMBCK2 , TROPONINI in the last 01750 hours. No results for input(s): VANCORNDM , VANCTROUGH in the last 50126 hours. Microbiology Results (Displays last 21 days for this encounter ONLY) Procedure Component Value - Date/Time CYTOMEGALOVIRUS (CMV) QUANTITATIVE PLASMA [[id number]] (Normal) Collected: 03/13/242325 Lab Status: Final result [...] sharon CMV. QUINN-RICHMOND VIRUS QUANT BLOOD STL [[id number]] Collected: 03/13/242325 Lab Status: Final result Specimen: [...] reported as Detected (<35 IU/mL). Values greater fdkw170,000,000 IU/mL are reported as >100,000,000 IU/mL. The [...] Relevant labs and imaging data reviewed on [facility]. Assessment and Plan MDS (myelodysplastic syndrome) (HCC) [...] PE for when hiatal hernia repair, s/p [place] filter placement, complete 6 months of Coumadin [...] Candidate?: No Electronically Signed By: Caity Ortiz APRN-COMMUNITY RELATIONS COORDINATOR 03/20/2024 3:01 PM The total time spent was 20 minutes performing chart preparation, review of data and visit with thepatient, 35992: I addressed a chronic illness with severe exacerbation/progression/side effect and/or an acute illness/injury that poses a threat to life or bodily functions (as documented above), 56994/56127: I reviewed the results of a unique test, ordered a unique test, or performed an assessment requiring an independent historian (as documented above), and 70975/56408: I discussed the management of the patient and/or the interpretation of a test with nursing staff, the care coordination team and all relevant consultants. FF COMPILING CLERK * Sandro Smith MD - 03/20/2024 7:05 [...] 0.64* 0.56* Recent Labs Component Name 03/19/24 0623 03/18/24 0833 03/17/24 0528 POTASSIUM 3.9 4.2 4.1 [...] suggestive of acute leukemia but not a renewals representative sample due to low cellularity FISH [...] 2004: DVT/PE following hiatal hernia repair s/p Braxton [...] to contact hem/onc consult fellow via the header set up operator or AMION if any questions or clarifications. Don Smith MD Internal Medicine Resident [facility] FF COMPILING CLERK Associated attestation - Fab Lopez MD - 03/20/2024 11:55 AM TARIFF COMPILING CLERK ATTENDING ATTESTATION Date of service: 03/20/2024 I [...] MD, PhD Hematology/Oncology * Caity Ortiz V., STEEL PLATE PRINTER-COMMUNITY RELATIONS COORDINATOR - 03/19/2024 4:43 PM CST Images from the original note were not included. [facility] Internal Medicine Progress Note Name: Russ Burciaga Room/Bed: [address] : 1945 78 year old PCP: Timothy [...] 2022), HTN, GERD, CAD present the the [facility] on 03/13 as direct admission from Oncology [...] , CKMBCK2 , TROPONINI in the last 54049 hours. No results for input(s): VANCORNDM , VANCTROUGH in the last 90679 hours. Microbiology Results (Displays last 21 days for this encounter ONLY) Procedure Component Value - Date/Time CYTOMEGALOVIRUS (CMV) QUANTITATIVE PLASMA [[id number]] (Normal) Collected: 03/13/242325 Lab Status: Final result [...] sharon CMV. QUINN-RICHMOND VIRUS QUANT BLOOD STL [[id number]] Collected: 03/13/242325 Lab Status: Final result Specimen: [...] reported as Detected (<35 IU/mL). Values greater gtwn156,000,000 IU/mL are reported as >100,000,000 IU/mL. The [...] Relevant labs and imaging data reviewed on [facility]. Assessment and Plan MDS (myelodysplastic syndrome) (HCC) [...] for when hiatal hernia repair C s/p [place] filter placement, complete 6 months of Coumadin [...] No Electronically Signed By: Caity Ortiz APRN-FAISAL 03/19/2024 4:43 PM The total time spent was 20 minutes performing chart preparation, review of data and visit with thepatient, 11430: I addressed a chronic illness with severe exacerbation/progression/side effect and/or an acute illness/injury that poses a threat to life or bodily functions (as documented above), 58120/48374: I reviewed the results of a unique test, ordered a unique test, or performed an assessment requiring an independent historian (as documented above), and 66829/67044: I discussed the management of the patient and/or the interpretation of a test with nursing staff, the care coordination team and all relevant consultants. FF COMPILING CLERK * Todd Escamilla RN - 03/19/2024 4:37 PM CST Problem: Fall Risk Goal: Fall risk and fall related injury risk are minimized (interventions related to the fall risk can be found in the flowsheet documentation) Outcome: Progressing FF COMPILING CLERK * Sandro Smith MD - 03/19/2024 7:07 AM CST [...] suggestive of acute leukemia but not a renewals representative sample due to low cellularity FISH [...] to contact hem/onc consult fellow via the header set up operator or AMION if any questions or clarifications. Don Smith MD Internal Medicine Resident [facility] FF COMPILING CLERK Associated attestation - Fab Lopez MD - 03/19/2024 7:14 PM TARIFF COMPILING CLERK ATTENDING ATTESTATION Date of service: 03/19/2024 I [...] MD, PhD Hematology/Oncology * Caity Ortiz V., STEEL PLATE PRINTER-COMMUNITY RELATIONS COORDINATOR - 03/18/2024 4:30 PM CST Images from the original note were not included. [facility] Internal Medicine Progress Note Name: Russ Burciaga Room/Bed: [facility]/ : 1945 78 year old PCP: Timothy [...] 2022), HTN, GERD, CAD present the the [facility] on 03/13 as direct admission from Oncology [...] 29.1 Recent Labs Component Name 03/18/24 0833 03/17/24 0528 03/16/24 0004 NA 143 140 141 POTASSIUM 4.2 4.1 4.2 CL 110* 109* 111* CO2 23 23 22 BUN 13 17 15 CREATININE 1.30* 1.33* 1.31* Recent Labs Component Name 03/18/24 0833 03/17/24 0528 03/16/24 0004 CALCIUM 9.5 8.8 8.9 PHOS 2.9 2.6* 3.5 Recent Labs Component Name 03/18/24 0833 03/17/24 0528 03/16/24 0004 PROT 6.7 6.0 6.3 ALB 3.5 3.2* 3.4 ALKPHOS 118 112 107 AST 12 14 15 ALT 17 17 16 TBILI 0.8 0.5 0.5 No results for input(s): CKTOTAL , CKMBCK2 , TROPONINI in the last 63243 hours. No results for input(s): [facility] in the last 84795 hours. Microbiology Results (Displays last 21 days for this encounter ONLY) Procedure Component Value - Date/Time CYTOMEGALOVIRUS (CMV) QUANTITATIVE PLASMA [[id number]] (Normal) Collected: 03/13/24 2326 Lab Status: Final [...] sharon CMV. QUINN-RICHMOND VIRUS QUANT BLOOD STL [[id number]] Collected: 03/13/242325 Lab Status: Final result Specimen: [...] reported as Detected (<35 IU/mL). Values greater eequ489,000,000 IU/mL are reported as >100,000,000 IU/mL. The [...] Relevant labs and imaging data reviewed on [facility]. Assessment and Plan MDS (myelodysplastic syndrome) (HCC) [...] review of data and visit with thepatient, 94930: I addressed a chronic illness with severe exacerbation/progression/side effect and/or an acute illness/injury that poses a threat to life or bodily functions (as documented above), 44367/31750: I reviewed the results of a unique test, ordered a unique test, or performed an assessment requiring an independent historian (as documented above), and 59202/72386: I discussed the management of the patient and/or the interpretation of a test with nursing staff, the care coordination team and all relevant consultants. FF COMPILING CLERK * Xiomy Sam RN - 03/18/2024 2:25 PM CST Care Coordination Progress Note Expected Discharge Date: 03/22/2024: Discharge Plan: Per review of chart, awaiting biopsy results to determine MDS vs AML and thus determine treatment plan. Discharge needs dependent on the recommendations of the interdisciplinary team. Family Support (Name and Phone): Extended Emergency Contact Information Primary Emergency Contact: rajwinder burciaga Address: [address] Mobile Relation: Significant other Transportation at Discharge: Family: READMISSION RISK SCORE is 8 at 2:25 PM 03/18/2024.: Name: Xiomy Sam RN [id number] FF COMPILING CLERK * Nicola Villegas - 03/18/2024 1:59 PM CST Parcel Carrier initiated visit. Parcel Carrier provided pastoral care through regular conversation, conversation about ariane, and prayer. Patient anticipating diagnosis soon. Patient is hopeful and has strong ariane to support him. Parcel Carrier remains available for pastoral care as needs arise. Nicola Villegas Staff Par[employer]rier Pastoral Care, [facility] [phone] (office) [phone] (ascom) FF COMPILING CLERK * Andreina Arenas RN - 03/18/2024 12:58 [...] membranes remain intact Description: INTERVENTIONS: Outcome: Progressing FF COMPILING CLERK * Sandro Smith MD - 03/18/2024 7:29 [...] suggestive of acute leukemia but not a renewals representative sample due to low cellularity FISH [...] to contact hem/onc consult fellow via the header set up operator or AMION if any questions or clarifications. Don Smith MD Internal Medicine Resident [facility] FF COMPILING CLERK Associated attestation - Fab Lopez MD - 03/18/2024 10:41 PM TARIFF COMPILING CLERK ATTENDING ATTESTATION Date of service: 03/18/2024 I [...] pancytopenia. Fab Lopez MD, PhD Hematology/Oncology * Farhad Julián, - 03/17/2024 12:37 PM CST Images from [...] For Mri Urticaria OBJECTIVE Physical Exam Vitals: 03/16/24 2003 03/16/24 2338 03/17/24 0401 03/17/24 1151 BP: 116/55 [...] suggestive of acute leukemia but not a renewals representative sample due to low cellularity FISH [...] 2005: DVT/PE following hiatal hernia repair s/p [place] filter placement; warfarin x6 mos 2006: RLE [...] to contact hem/onc consult fellow via the header set up operator or AMION if any questions or clarifications. Julián Llamas DO, PGY-4 Hematology and Oncology Fellow Department of Hematology and Oncology [facility] FF COMPILING CLERK Associated attestation - Zeus Xie MD - 03/17/2024 3:43 PM TARIFF COMPILING CLERK I have seen and examined the patient with the fellow. I agree with the findings and plan of care asdocumented by the fellow. Date of fellow's note: 03/17/2024 Date of service: 03/17/2024 Zeus Xie MD * Caity Ortiz V., STEEL PLATE PRINTER-COMMUNITY RELATIONS COORDINATOR - 03/17/2024 11:50 AM CST Images from the original note were not included. [facility] Internal Medicine Progress Note Name: Russ Burciaga [...] 2022), HTN, GERD, CAD present the the [facility] on 03/13 as direct admission from Oncology [...] 86.4 86.8 87.1 Recent Labs Component Name 03/17/24 0528 03/16/24 0004 03/15/24752 PT 15.6* 15.3* 16.1* INR 1.3 1.2 1.3 PTT 31.0 29.1 31.4 Recent Labs Component Name 03/17/2452703/16/24303/15/24752 NA 140 141 145 POTASSIUM 4.1 4.2 4.3 CL 109* 111* 107 CO2 23 22 25 BUN 17 15 12 CREATININE 1.33* 1.31* 1.34* Recent Labs Component Name 03/17/2452703/16/24303/15/24752 CALCIUM 8.8 8.9 9.3 PHOS 2.6* 3.5 2.9 Recent Labs Component Name 03/17/2452703/16/24303/15/24752 PROT 6.0 6.3 6.4 ALB 3.2* 3.4 3.5 ALKPHOS 112 107 115 AST 14 15 15 ALT 17 16 12 TBILI 0.5 0.5 0.8 No results for input(s): CKTOTAL , CKMBCK2 , TROPONINI in the last 06535 hours. No results for input(s): VANCORNDM , VANCTROUGH in the last 13653 hours. Microbiology Results (Displays last 21 days for this encounter ONLY) Procedure Component Value - Date/Time CYTOMEGALOVIRUS (CMV) QUANTITATIVE PLASMA [[id number]] (Normal) Collected: 03/13/246 Lab Status: Final result Specimen: Blood Updated: [...] sharon CMV. QUINN-RICHMOND VIRUS QUANT BLOOD STL [[id number]] Collected: 03/13/246 Lab Status: Final result Specimen: Blood Updated: [...] reported as Detected (<35 IU/mL). Values greater vgko673,000,000 IU/mL are reported as >100,000,000 IU/mL. The [...] Relevant labs and imaging data reviewed on [facility]. Assessment and Plan MDS (myelodysplastic syndrome) (HCC) [...] No Electronically Signed By: Caity Ortiz APRN-FAISAL 03/17/2024 11:50 AM The total time spent was 20 minutes performing chart preparation, review of data and visit with thepatient, 12095: I addressed a chronic illness with severe exacerbation/progression/side effect and/or an acute illness/injury that poses a threat to life or bodily functions (as documented above), 37969/88144: I reviewed the results of a unique test, ordered a unique test, or performed an assessment requiring an independent historian (as documented above), and 89989/12247: I discussed the management of the patient and/or the interpretation of a test with nursing staff, the care coordination team and all relevant consultants. FF COMPILING CLERK * Rachele Winn RN - 03/17/2024 9:14 [...] membranes remain intact Description: INTERVENTIONS: Outcome: Progressing FF COMPILING CLERK * Julián Llamas DO - 03/16/2024 1:34 [...] suggestive of acute leukemia but not a renewals representative sample due to low cellularity FISH [...] 2005: DVT/PE following hiatal hernia repair s/p [place] filter placement; warfarin x6 mos 2005: RLE [...] to contact hem/onc consult fellow via the header set up operator or AMION if any questions or clarifications. Julián Llamas DO, PGY-4 Hematology and Oncology Fellow Department of Hematology and Oncology [facility] FF COMPILING CLERK Associated attestation - Zeus Xie MD - 03/16/2024 3:35 PM TARIFF COMPILING CLERK I have seen and examined the patient with the fellow. I agree with the findings and plan of care asdocumented by the fellow. Date of fellow's note: 03/16/2024 Date of service: 03/16/2024 Zeus Xie MD * Caity Ortiz V., STEEL PLATE PRINTER-COMMUNITY RELATIONS COORDINATOR - 03/16/2024 12:36 PM CST Images from the original note were not included. [facility] Internal Medicine Progress Note Name: Russ Burciaga [...] 2022), HTN, GERD, CAD present the the [facility] on 03/13 as direct admission from Oncology [...] 86.5 Recent Labs Component Name 03/16/24 0004 03/15/2475203/13/24 2326 PT 15.3* 16.1* 16.5* INR 1.2 1.3 [...] , CKMBCK2 , TROPONINI in the last 97035 hours. No results for input(s): [facility] , VANCTROUGH in the last 25805 hours. Microbiology Results (Displays last 21 days for this encounter ONLY) Procedure Component Value - Date/Time CYTOMEGALOVIRUS (CMV) QUANTITATIVE PLASMA [[id number]] (Normal) Collected: 03/13/242325 Lab Status: Final result [...] sharon CMV. QUINN-RICHMOND VIRUS QUANT BLOOD STL [[id number]] Collected: 03/13/24 2326 Lab Status: Final result [...] reported as Detected (<35 IU/mL). Values greater smau080,000,000 IU/mL are reported as >100,000,000 IU/mL. The [...] Relevant labs and imaging data reviewed on [facility]. Assessment and Plan MDS (myelodysplastic syndrome) (HCC) [...] for when hiatal hernia repair C s/p [place] filter placement, complete 6 months of Coumadin [...] No Electronically Signed By: Caity Ortiz APRN-FAISAL 03/16/2024 12:36 PM The total time spent was 20 minutes performing chart preparation, review of data and visit with thepatient, 21876: I addressed a chronic illness with severe exacerbation/progression/side effect and/or an acute illness/injury that poses a threat to life or bodily functions (as documented above), 40485/64158: I reviewed the results of a unique test, ordered a unique test, or performed an assessment requiring an independent historian (as documented above), and 01635/24841: I discussed the management of the patient and/or the interpretation of a test with nursing staff, the care coordination team and all relevant consultants. FF COMPILING CLERK * Rachele Winn RN - 03/16/2024 9:10 [...] level of function Description: INTERVENTIONS: Outcome: Progressing FF COMPILING CLERK * Rosalina Quiros RN - 03/16/2024 2:55 [...] infections are decreased or avoided Outcome: Progressing FF COMPILING CLERK * Olivia Patel Graduate Nurse - 03/15/2024 [...] infections are decreased or avoided Outcome: Progressing FF COMPILING CLERK * Caity Ortiz V., STEEL PLATE PRINTER-COMMUNITY RELATIONS COORDINATOR - 03/15/2024 12:08 PM CST Images from the original note were not included. [facility] Internal Medicine Progress Note Name: Russ Burciaga [...] 2022), HTN, GERD, CAD present the the [facility] on 03/13 as direct admission from Oncology [...] Infusions: Laboratory Data Recent Labs Component Name 03/15/24 07503/13/24232503/04/24 1613 WBC 0.9* 1.2* 1.0* HGB 11.7* 11.6* 12.5* HCT 35.9* 35.8* 38.8 PLTCOUNT 95* 103* 110* MCV 87.1 86.5 88.4 Recent Labs Component Name 03/15/2475203/13/242325 PT 16.1* 16.5* INR 1.3 1.4 PTT 31.4 31.6 Recent Labs Component Name 03/15/24 0753 03/13/24232503/04/24 1613 NA 145 140 141 POTASSIUM 4.3 [...] , CKMBCK2 , TROPONINI in the last 01278 hours. No results for input(s): VANCORNDM , VANCTROUGH in the last 89857 hours. Microbiology Results (Displays last 21 days for this encounter ONLY) Procedure Component Value - Date/Time CYTOMEGALOVIRUS (CMV) QUANTITATIVE PLASMA [[id number]] (Normal) Collected: 03/13/242325 Lab Status: Final result [...] sharon CMV. QUINN-RICHMOND VIRUS QUANT BLOOD STL [[id number]] Collected: 03/13/242325 Lab Status: Final result Specimen: [...] reported as Detected (<35 IU/mL). Values greater kylb067,000,000 IU/mL are reported as >100,000,000 IU/mL. The [...] Relevant labs and imaging data reviewed on [facility]. Assessment and Plan MDS (myelodysplastic syndrome) (HCC) [...] for when hiatal hernia repair C s/p [place] filter placement, complete 6 months of Coumadin [...] Candidate?: No Electronically Signed By: Caity Ortiz APRN-COMMUNITY RELATIONS COORDINATOR 03/15/2024 12:09 PM The total time spent was 50 minutes performing chart preparation, review of data and visit with thepatient, 80729: I addressed a chronic illness with severe exacerbation/progression/side effect and/or an acute illness/injury that poses a threat to life or bodily functions (as documented above), 13689/59893: I reviewed the results of a unique test, ordered a unique test, or performed an assessment requiring an independent historian (as documented above), and 49914/23628: I discussed the management of the patient and/or the interpretation of a test with nursing staff, the care coordination team and all relevant consultants. FF COMPILING CLERK * Sandro Smith MD - 03/15/2024 7:06 [...] 104/61 Pulse: 63 67 67 67 Resp: Temp: 98.3 ??F (36.8 ??C) 98.4 ??F [...] SI/HI Laboratory Results Recent Labs Component Name 03/13/246 03/04/24 1613 WBC 1.2* 1.0* RBC 4.14* [...] to contact hem/onc consult fellow via the header set up operator or AMION if any questions or clarifications. Don Smith MD Internal Medicine FF COMPILING CLERK Associated attestation - Zeus Xie MD - 03/15/2024 6:03 PM TARIFF COMPILING CLERK I have seen and examined the patient [...] infections are decreased or avoided Outcome: Progressing FF COMPILING CLERK * Olivia Palafox RN - 03/14/2024 6:29 [...] infections are decreased or avoided Outcome: Progressing FF COMPILING CLERK * Teresita Bolden RN - 03/14/2024 11:58 [...] of a cane while outside of home. [place] [facility] [place]. Denies HH services. Utilizes a CPAP. Home [...] (cane) Requires Assistance With: Mobility Preferred Pharmacy: [id number] - [address] [phone] [phone] READMISSION RISK SCORE is 8 at 11:59 AM 03/14/2024. Met with patient Family Support (name and phone): Extended Emergency Contact Information Primary Emergency Contact: rajwinder burciaga Address: [address] [place] [address] [facility] Mobile Relation: Significant other Patient or renewals representative requests care coordination reach out to family or caregiver listed above regarding discharge planning and at time of discharge? No Actual Level of Care/Dispostion Details Durable Medical Equipment Planning Equipment at Home: Cane;CPAP/BiPAP Type of Cane: Standard/Quad DME Provider: not identified List DME pt. requires but does not have.: None Chairman Of The Board Referral: No Will continue to follow. For any questions or needs please contact: Urban Redevelopment Specialist/Social Work Name/Phone number: Teresita Bolden RN FF COMPILING CLERK * Ghanshyam Dewey PA-C - 03/14/2024 8:59 AM CST Images from the original note were not included. [facility] Internal Medicine Progress Note Name: Russ Burciaga [...] , CKMBCK2 , TROPONINI in the last 36471 hours. No results for input(s): VANCORNDM , VANCTROUGH in the last 77122 hours. Microbiology Results (Displays last 21 days for this encounter ONLY) Procedure Component Value - Date/Time CYTOMEGALOVIRUS (CMV) QUANTITATIVE PLASMA [[id number]] Collected: 03/13/242325 Lab Status: In process Specimen: Blood Updated: 03/13/242336 QUINN-RICHMOND VIRUS QUANT BLOOD STL [[id number]] Collected: 03/13/242325 Lab Status: Final result Specimen: [...] reported as Detected (<35 IU/mL). Values greater dpma358,000,000 IU/mL are reported as >100,000,000 IU/mL. The [...] Relevant labs and imaging data reviewed on [facility]. Assessment and Plan MDS (myelodysplastic syndrome) (HCC) (POA: Unknown) #Concern for AML vs MDS #Pancytopenia in setting of chronic leukopenia with recent abnormal BMBx -Prior workup and [facility]/P: 83yo M with chronic leukopenia [...] provoked DVT/PE following hiatal hernia repair s/p [place] filter placement, completed 6 months Coumadin; recurrence [...] review of data and visit with thepatient, 66490: I addressed a chronic illness with severe exacerbation/progression/side effect and/or an acute illness/injury that poses a threat to life or bodily functions (as documented above), 54978/69293: I reviewed the results of a unique test, ordered a unique test, or performed an assessment requiring an independent historian (as documented above), and 78179/59289: I discussed the management of the patient and/or the interpretation of a test with nursing staff, the care coordination team and all relevant consultants. FF COMPILING CLERK * Jayro Powell, Gaurang Nurse - 03/14/2024 12:16 AM CST Problem: [...] infections are decreased or avoided Outcome: Progressing FF COMPILING CLERK * Jayro Powell Graduate Nurse - 03/13/2024 11:05 PM CST Myself and Natalie BROWN have both assessed Russ Burciaga's skin from head to toe. Based on our assessment the following risks have been identified: bruising to left hip and discoloration of lower extremities. Refer to flowsheet for irma score and interventions put in place. FF COMPILING CLERK * Nancy Cowan MD - 03/13/2024 9:26 [...] Range Status 02/12/2024 Final Flow Cytometry Case: [id number] Authorizing Provider: Rommel Dinh Collected: 02/12/2024 09:20 AM MD Luke Ordering Location: [facility] - Received: 02/12/2024 12:12 PM Pathology Lab Pathologist: Daniela Bronson MD Specimen: Bone Marrow 02/12/2024 Final Bone Marrow Pathology Report Case: [id number] Authorizing Provider: Rommel Dinh Collected: 02/12/2024 09:20 AM MD Luke Ordering Location: [facility] - Received: 02/13/2024 12:34 PM Pathology Lab [...] specimen consists of a shave biopsy measuring 03y89m0 mm. Jar 0. Specimen B: Received is [...] Signout Date Value Ref Range Status 02/12/2024 [facility] Final 02/12/2024 [facility] Final Following are the Recommendations by Malignant [...] MD Hematology and Medical Oncology Fellow/ PGY-4 [facility]/ [facility]. FF COMPILING CLERK documented in this encounter H&P Notes * Ted Soler MD - 03/13/2024 9:34 PM CST Images from the original note were not included. 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 Worked in both [place] and [place]. A lifelong fan of the [employer]. Allergies Allergies Allergen Reactions ??? Contrast-Gadolinium Agents [...] ALB 3.8 PROT 7.1 Microbiology: Reviewed in [facility] Imaging Reviewed in [facility] Active Problems: MDS (myelodysplastic syndrome) (HCC) Assessment [...] No Order Signed: Ted Soler Jr., MD FF COMPILING CLERK documented in this encounter Procedure Notes * [...] removed after aspiration. To obtain core biopsy Amayaidi needle was inserted at a separate site [...] MD Hematology and Medical Oncology Fellow/ PGY-4 [facility]/ [facility]. FF COMPILING CLERK Associated attestation - Zeus Xie MD - 03/15/2024 6:02 PM TARIFF COMPILING CLERK I was present for the corea elements [...] to contact hem/onc consult fellow via the header set up operator or AMION if any questions or clarifications. Don Smith MD Internal Medicine FF COMPILING CLERK Associated attestation - Fab Lopez MD - 03/14/2024 8:25 PM TARIFF COMPILING CLERK ATTENDING ATTESTATION Date of service: 03/14/2024 I [...] st Contact Info) Description 04/15/2024 8:30 AM TARIFF COMPILING CLERK Hospital Encounter [facility] [address] [place] [phone] 04/16/2024 9:00 AM TARIFF COMPILING CLERK Hospital Encounter [facility] [address] [place] [phone] 04/17/2024 8:30 AM TARIFF COMPILING CLERK Appointment [facility] [address] [place] [phone] 04/18/2024 9:30 AM TARIFF COMPILING CLERK Appointment [facility] [address] [place] [phone] 04/18/2024 10:30 AM TARIFF COMPILING CLERK Office Visit [facility] - Hematology/Oncology [address] [place] [phone] Cindy Garcia MD [address] [place] [phone] 04/19/2024 9:00 AM TARIFF COMPILING CLERK Appointment [facility] [address] [place] [phone] 05/13/2024 9:00 AM TARIFF COMPILING CLERK Appointment [facility] [address] [place] [phone] 05/28/2024 10:00 AM TARIFF COMPILING CLERK Office Visit [facility] - Nephrology [address] [place] [phone] Cindy Garcia MD [address] [place] [phone] Santiago Meraz MD [address] [place] [phone] Pending Results Name Type Priority Associated Diagnoses Date /Time FISH PML/DANTE PANEL Pathology Cytology Routine MDS (myelodysplastic syndrome) (HCC) 03/15/2024 9:05 AM TARIFF COMPILING CLERK Scheduled Orders Name Type Priority Associated Diagnoses [...] Occurrences starting 03/23/2024 until 03/18/2025 PT-INR [facility] Lab Routine MDS (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, 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) 1 Occurrences starting 03/23/2024 until 03/18/2025 Scheduled Referrals Name Type Priority Associated Diagnoses Order Schedule Ref to [facility]patient Referral Routine MDS (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, 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) 1 Occurrences starting 03/23/2024 until 03/23/2025 documented as of this encounter Procedures Procedure Name Priority Date/Time Associated Diagnosis Comments PTT [facility] AM Draw 03/23/2024 12:25 AM TARIFF COMPILING CLERK PT-INR [facility] AM Draw 03/23/2024 12:25 AM TARIFF COMPILING CLERK URIC ACID BLOOD Routine 03/23/2024 12:25 AM TARIFF COMPILING CLERK DIFFERENTIAL MANUAL AM Draw 03/23/2024 1 2:25 AM TARIFF COMPILING CLERK CBC W AUTO DIFFERENTIAL AM Draw 03/23/20 24 12:25 AM TARIFF COMPILING CLERK COMPREHENSIVE METABOLIC PANEL Routine 03/23/2024 12:25 AM TARIFF COMPILING CLERK PHOSPHORUS BLOOD Routine 03/23/2024 12:2 5 AM TARIFF COMPILING CLERK MAGNESIUM BLOOD Routine 03/23/2024 12:25 AM TARIFF COMPILING CLERK LDH BLOOD Routine 03/23/2024 12:25 AM TARIFF COMPILING CLERK URIC ACID BLOOD Routine 03/22/2024 6:20 PM TARIFF COMPILING CLERK COMPREHENSIVE METABOLIC PANEL Routine 03/22/2024 6:20 PM TARIFF COMPILING CLERK PHOSPHORUS BLOOD Routine 03/22/2024 6:20 PM TARIFF COMPILING CLERK MAGNESIUM BLOOD Routine 03/22/2024 6:20 PM TARIFF COMPILING CLERK LDH BLOOD Routine 03/22/2024 6:20 PM TARIFF COMPILING CLERK PTT [facility] AM Draw 03/22/2024 6:58 AM TARIFF COMPILING CLERK PT-INR [facility] AM Draw 03/22/2024 6:58 AM TARIFF COMPILING CLERK URIC ACID BLOOD Routine 03/22/2024 6:58 AM TARIFF COMPILING CLERK DIFFERENTIAL MANUAL AM Draw 03/22/2024 6 :58 AM TARIFF COMPILING CLERK CBC W AUTO DIFFERENTIAL AM Draw 03/22/20 6:58 AM TARIFF COMPILING CLERK COMPREHENSIVE METABOLIC PANEL Routine 03/22/2024 6:58 AM TARIFF COMPILING CLERK PHOSPHORUS BLOOD Routine 03/22/2024 6:58 AM TARIFF COMPILING CLERK MAGNESIUM BLOOD Routine 03/22/2024 6:58 AM TARIFF COMPILING CLERK LDH BLOOD Routine 03/22/2024 6:58 AM TARIFF COMPILING CLERK PTT [facility] AM Draw 03/21/2024 3:47 AM TARIFF COMPILING CLERK PT-INR [facility] AM Draw 03/21/2024 3:47 AM TARIFF COMPILING CLERK URIC ACID BLOOD Routine 03/21/2024 3:47 AM TARIFF COMPILING CLERK CBC W AUTO DIFFERENTIAL AM Draw 03/21/20 3:47 AM TARIFF COMPILING CLERK COMPREHENSIVE METABOLIC PANEL Routine 03/21/2024 3:47 AM TARIFF COMPILING CLERK PHOSPHORUS BLOOD Routine 03/21/2024 3:47 AM TARIFF COMPILING CLERK MAGNESIUM BLOOD Routine 03/21/2024 3:47 AM TARIFF COMPILING CLERK LDH BLOOD Routine 03/21/2024 3:47 AM TARIFF COMPILING CLERK URIC ACID BLOOD Routine 03/20/2024 4:07 PM TARIFF COMPILING CLERK COMPREHENSIVE METABOLIC PANEL Routine 03/20/2024 4:07 PM TARIFF COMPILING CLERK PHOSPHORUS BLOOD Routine 03/20/2024 4:07 PM TARIFF COMPILING CLERK MAGNESIUM BLOOD Routine 03/20/2024 4:07 PM TARIFF COMPILING CLERK LDH BLOOD Routine 03/20/2024 4:07 PM TARIFF COMPILING CLERK PTT [facility] AM Draw 03/20/2024 6:28 AM TARIFF COMPILING CLERK PT-INR [facility] AM Draw 03/20/2024 6:28 AM TARIFF COMPILING CLERK URIC ACID BLOOD Routine 03/20/2024 6:28 AM TARIFF COMPILING CLERK DIFFERENTIAL MANUAL AM Draw 03/20/2024 6 :28 AM TARIFF COMPILING CLERK CBC W AUTO DIFFERENTIAL AM Draw 03/20/20 6:28 AM TARIFF COMPILING CLERK COMPREHENSIVE METABOLIC PANEL AM Draw 03/20/2024 6:28 AM TARIFF COMPILING CLERK PHOSPHORUS BLOOD Routine 03/20/2024 6:28 AM TARIFF COMPILING CLERK MAGNESIUM BLOOD Routine 03/20/2024 6:28 AM TARIFF COMPILING CLERK LDH BLOOD Routine 03/20/2024 6:28 AM TARIFF COMPILING CLERK PTT [facility] AM Draw 03/19/2024 6:23 AM TARIFF COMPILING CLERK PT-INR [facility] AM Draw 03/19/2024 6:23 AM TARIFF COMPILING CLERK URIC ACID BLOOD Routine 03/19/2024 6:23 AM TARIFF COMPILING CLERK DIFFERENTIAL MANUAL AM Draw 03/19/2024 6 :23 AM TARIFF COMPILING CLERK CBC W AUTO DIFFERENTIAL AM Draw 03/19/20 6:23 AM TARIFF COMPILING CLERK COMPREHENSIVE METABOLIC PANEL AM Draw 03/19/2024 6:23 AM TARIFF COMPILING CLERK PHOSPHORUS BLOOD Routine 03/19/2024 6:23 AM TARIFF COMPILING CLERK MAGNESIUM BLOOD Routine 03/19/2024 6:23 AM TARIFF COMPILING CLERK LDH BLOOD Routine 03/19/2024 6:23 AM TARIFF COMPILING CLERK EKG 12-LEAD Routine 03/18/2024 1:48 PM TARIFF COMPILING CLERK Inverted T wave PTT [facility] AM Draw 03/18/2024 8:33 AM TARIFF COMPILING CLERK PT-INR [facility] AM Draw 03/18/2024 8:33 AM TARIFF COMPILING CLERK URIC ACID BLOOD Routine 03/18/2024 8:33 AM TARIFF COMPILING CLERK PATHOLOGY PERIPHERAL SMEAR REVIEW AM Draw 03/18/2024 8:33 AM TARIFF COMPILING CLERK DIFFERENTIAL MANUAL AM Draw 03/18/2024 8 :33 AM TARIFF COMPILING CLERK CBC W AUTO DIFFERENTIAL AM Draw 03/18/20 8:33 AM TARIFF COMPILING CLERK COMPREHENSIVE METABOLIC PANEL AM Draw 03/18/2024 8:33 AM TARIFF COMPILING CLERK PHOSPHORUS BLOOD Routine 03/18/2024 8:33 AM TARIFF COMPILING CLERK MAGNESIUM BLOOD Routine 03/18/2024 8:33 AM TARIFF COMPILING CLERK LDH BLOOD Routine 03/18/2024 8:33 AM TARIFF COMPILING CLERK PTT SLH AM Draw 03/17/2024 5:28 AM TARIFF COMPILING CLERK PT-INR [facility] AM Draw 03/17/2024 5:28 AM TARIFF COMPILING CLERK URIC ACID BLOOD Routine 03/17/2024 5:28 AM TARIFF COMPILING CLERK DIFFERENTIAL MANUAL AM Draw 03/17/2024 5:28 AM TARIFF COMPILING CLERK CBC W AUTO DIFFERENTIAL AM Draw 03/17/20 24 5:28 AM TARIFF COMPILING CLERK COMPREHENSIVE METABOLIC PANEL AM Draw 03/17/2024 5:28 AM TARIFF COMPILING CLERK PHOSPHORUS BLOOD Routine 03/17/2024 5:28 AM TARIFF COMPILING CLERK MAGNESIUM BLOOD Routine 03/17/2024 5:28 AM TARIFF COMPILING CLERK LDH BLOOD Routine 03/17/2024 5:28 AM TARIFF COMPILING CLERK PTT [facility] AM Draw 03/16/2024 12:04 AM TARIFF COMPILING CLERK PT-INR [facility] AM Draw 03/16/2024 12:04 AM TARIFF COMPILING CLERK URIC ACID BLOOD Routine 03/16/2024 12:04 AM TARIFF COMPILING CLERK DIFFERENTIAL MANUAL AM Draw 03/16/2024 1 2:04 AM TARIFF COMPILING CLERK CBC W AUTO DIFFERENTIAL AM Draw 03/16/20 12:04 AM TARIFF COMPILING CLERK COMPREHENSIVE METABOLIC PANEL AM Draw 03/16/2024 12:04 AM TARIFF COMPILING CLERK PHOSPHORUS BLOOD Routine 03/16/2024 12:0 4 AM TARIFF COMPILING CLERK MAGNESIUM BLOOD Routine 03/16/2024 12:04 AM TARIFF COMPILING CLERK LDH BLOOD Routine 03/16/2024 12:04 AM TARIFF COMPILING CLERK ECHO COMPLETE W CONTRAST Routine 03/15/2024 1:47 PM TARIFF COMPILING CLERK MDS (myelodysplastic syndrome) (HCC) FISH MDS PANEL BLOOD OR BONE MARROW Routine 03/15/2024 9:05 AM TARIFF COMPILING CLERK MDS (myelodysplastic syndrome) (HCC) FISH AML PANEL BLOOD OR BM RFLX PML/DANTE Routine 03/15/2024 9:05 AM TARIFF COMPILING CLERK MDS (myelodysplastic syndrome) (HCC) FLOW CYTOMETRY BONE MARROW Routine 03/15/2024 9:05 AM TARIFF COMPILING CLERK MDS (myelodysplastic syndrome) (HCC) BONE MARROW BIOPSY (STL) Routine 03/15/2024 9:05 AM TARIFF COMPILING CLERK MDS (myelodysplastic syndrome) (HCC) MYELOID MALIGNANCIES MUTATION PNL Routine 03/15/2024 9:05 AM TARIFF COMPILING CLERK MDS (myelodysplastic syndrome) (HCC) LAB MISC TEST (NOT BLOOD) Routine 03/15/2024 9:05 AM TARIFF COMPILING CLERK LAB MISC TEST (NOT BLOOD) Routine 03/15/2024 9:05 AM TARIFF COMPILING CLERK LAB MISC TEST (NOT BLOOD) Routine 03/15/2024 9:05 AM TARIFF COMPILING CLERK FISH PML/DANTE PANEL Routine 03/15/2024 9 :05 AM TARIFF COMPILING CLERK MDS (myelodysplastic syndrome) (HCC) CHROMOSOME ANALYSIS BONE MARROW PANEL Routine 03/15/2024 9:05 AM TARIFF COMPILING CLERK MDS (myelodysplastic syndrome) (HCC) PTT [facility] AM Draw 03/15/2024 7:53 AM TARIFF COMPILING CLERK PT-INR [facility] AM Draw 03/15/2024 7:53 AM TARIFF COMPILING CLERK URIC ACID BLOOD Routine 03/15/2024 7:53 AM TARIFF COMPILING CLERK DIFFERENTIAL MANUAL AM Draw 03/15/2024 7:53 AM TARIFF COMPILING CLERK CBC W AUTO DIFFERENTIAL AM Draw 03/15/20 7:53 AM TARIFF COMPILING CLERK COMPREHENSIVE METABOLIC PANEL AM Draw 03/15/2024 7:53 AM TARIFF COMPILING CLERK PHOSPHORUS BLOOD Routine 03/15/2024 7:53 AM TARIFF COMPILING CLERK MAGNESIUM BLOOD Routine 03/15/2024 7:53 AM TARIFF COMPILING CLERK LDH BLOOD Routine 03/15/2024 7:53 AM TARIFF COMPILING CLERK EKG 12-LEAD STAT 03/14/2024 12:30 PM TARIFF COMPILING CLERK MDS (myelodysplastic syndrome) (HCC) FLOW CYTOMETRY BLOOD PROFILE Routine 03/14/2024 10:32 AM TARIFF COMPILING CLERK MDS (myelodysplastic syndrome) (HCC) PTT SLH Routine 03/13/2024 11:26 PM TARIFF COMPILING CLERK PT-INR [facility] Routine 03/13/2024 11:26 PM TARIFF COMPILING CLERK CYTOMEGALOVIRUS (CMV) QUANTITATIVE PLASMA Routine 03/13/2024 11:26 PM TARIFF COMPILING CLERK QUINN-RICHMOND VIRUS QUANT BLOOD STL Routine 03/13/2024 11:26 PM TARIFF COMPILING CLERK URIC ACID BLOOD Routine 03/13/2024 11:26 PM TARIFF COMPILING CLERK D-DIMER Routine 03/13/2024 11:26 PM TARIFF COMPILING CLERK FIBRINOGEN ACTIVITY Routine 03/13/2024 1 1:26 PM TARIFF COMPILING CLERK DIFFERENTIAL MANUAL STAT 03/13/2024 1 1:26 PM TARIFF COMPILING CLERK CBC W AUTO DIFFERENTIAL STAT 03/13/20 11:26 PM TARIFF COMPILING CLERK COMPREHENSIVE METABOLIC PANEL STAT 03/13/2024 11:26 PM TARIFF COMPILING CLERK PHOSPHORUS BLOOD Routine 03/13/2024 11:2 6 PM TARIFF COMPILING CLERK MAGNESIUM BLOOD Routine 03/13/2024 11:26 PM TARIFF COMPILING CLERK LDH BLOOD Routine 03/13/2024 11:26 PM TARIFF COMPILING CLERK CHROMOSOME ANALYSIS LEUKEMIA BLD Routine 03/04/2024 4:13 PM TARIFF COMPILING CLERK MDS (myelodysplastic syndrome) (HCC) documented in this encounter Results * (ABNORMAL) DIFFERENTIAL MANUAL (03/23/2024 12:25 AM TARIFF COMPILING CLERK) Neutrophil % 17(L) 41 - 74 % 03/23/2024 2:28 AM TARIFF COMPILING CLERK [facility] Lymphocyte % 77(H) 17 - 47 % 03/23/2024 2:28 AM TARIFF COMPILING CLERK [facility] Monocyte % 6 3 - 11 % 03/23/2024 2:28 AM TARIFF COMPILING CLERK [facility] Neutrophil Absolute 0.10(L) 1.60 - 7.50 x10E9/L 03/23/2024 2:28 AM TARIFF COMPILING CLERK [facility] Lymphocyte Absolute 0.46(L) 1.00 - 4.40 x10E9/L 03/23/2024 2:28 AM TARIFF COMPILING CLERK [facility] Monocyte Absolute 0.04(L) 0.15 - 1.00 x10E9/L 03/23/2024 2:28 AM [facility] RBC Morphology REVIEWED 03/23/2024 2:28 AM [facility] Steven Cells MODERATE(A) (none) 03/23/2024 2:28 AM [facility] Schistocytes FEW(A) (none) 03/23/2024 2:28 AM [facility] Large Platelets PRESENT(A) (none) 2:28 AM [facility] Blood BLOOD SPECIMEN / Unknown Venipuncture / Unknown 03/23/2024 12:25 AM TARIFF COMPILING CLERK 03/23/2024 1:07 AM TARIFF COMPILING CLERK Ghanshyam Dewey PA-C LAB - HEMATOLOGY ORD ERABLES [address] [address], [facility] [phone] * MAGNESIUM BLOOD (03/23/2024 12:25 AM TARIFF COMPILING CLERK) Magnesium 1.9 1.6 - 2.6 mg/dL 03/23/2024 1:36 AM TARIFF COMPILING CLERK [facility] Blood BLOOD SPECIMEN / Unknown Venipuncture / Unknown 03/23/2024 12:25 AM TARIFF COMPILING CLERK 03/23/2024 1:07 AM TARIFF COMPILING CLERK Josh Momin MD LAB - CHEMISTRY ORD ERABLES Performing Organization Address City/[facility]/ZIP Co de Phone Number [address] [address], [facility] [phone] * URIC ACID BLOOD (03/23/2024 12:25 AM TARIFF COMPILING CLERK) Uric Acid 4.2 3.5 - 7.2 mg/dL 03/23/2024 1:36 AM TARIFF COMPILING CLERK [facility] Blood BLOOD SPECIMEN / Unknown Venipuncture / Unknown 03/23/2024 12:25 AM TARIFF COMPILING CLERK 03/23/2024 1:07 AM TARIFF COMPILING CLERK Josh Momin MD LAB - CHEMISTRY ORD ERABLES [address] [place] [address], [facility] [phone] * (ABNORMAL) PHOSPHORUS BLOOD (03/23/2024 12:25 AM TARIFF COMPILING CLERK) Pathologist [facility] Phosphorus 2.5(L) 2.8 - 5.1 mg/dL 03/23/2024 1:36 AM [facility] Blood BLOOD SPECIMEN / Unknown Venipuncture / Unknown 03/23/2024 12:25 AM TARIFF COMPILING CLERK 03/23/2024 1:07 AM TARIFF COMPILING CLERK Josh Momin MD LAB - CHEMISTRY ORD ERABLES [facility] [address] [place] [address], [facility] [phone] * (ABNORMAL) COMPREHENSIVE METABOLIC PANEL (03/23/2024 12:25 AM TARIFF COMPILING CLERK) Pathologist [facility] BUN 12 7 - 26 mg/dL 03/23/2024 1:36 AM [facility] Creatinine 1.06 0.71 - 1.16 mg/dL 03/23/2024 1:36 AM [facility] Sodium 141 136 - 145 mmol/L 03/23/2024 1:36 AM [facility] Potassium 3.6 3.5 - 4.5 mmol/L 03/23/2024 1:36 AM [facility] Chloride 108(H) 98 - 107 mmol/L 03/23/2024 1:36 AM [facility] CO2 23 22 - 29 mmol/L 03/23/2024 1:36 AM [facility] Glucose 130(H) 70 - 99 mg/dL 03/23/2024 1:36 AM [facility] Calcium 8.7 8.4 - 10.2 mg/dL 03/23/2024 1:36 AM [facility] Protein Total 5.9(L) 6.0 - 8.3 g/dL 03/23/2024 1:36 AM [facility] Albumin 3.1(L) 3.4 - 5.0 g/dL 03/23/2024 1:36 AM [facility] Bilirubin Total 0.6 0.2 - 1.2 mg/dL 03/23/2024 1:36 AM [facility] Alkaline Phosphatase 105 40 - 150 U/L 03/23/2024 1:36 AM [facility] ALT 30 5 - 55 U/L 03/23/2024 1:36 AM [facility] AST 26 5 - 34 U/L 03/23/2024 1:36 AM [facility] Anion Gap 10 6 - 16 03/23/2024 1:36 AM [facility] BUN/Creatinine Ratio 11 7 - 23 03/23/2024 1:36 AM [facility] Osmolality Calculated 294 275 - 295 mOsm/kg 03/23/2024 1:36 AM [facility] Albumin/Globulin Ratio 1.1 1.1 - 2.3 03/23/2024 1:36 AM [facility] eGFR by CKD-EPI 71(L) >=90 mL/min/1.7 3 m2 03/23/2024 1:36 AM [facility] Blood BLOOD SPECIMEN / Unknown Venipuncture / Unknown 03/23/2024 12:25 AM TARIFF COMPILING CLERK 03/23/2024 1:07 AM TARIFF COMPILING CLERK Josh Momin MD LAB - CHEMISTRY ORD ERABLES [facility] [address] [place] [address], [place] [phone] * LDH BLOOD (03/23/2024 12:25 AM TARIFF COMPILING CLERK) LDH Total 173 125 - 243 Units/L 03/23/2024 1:36 AM [facility] Blood BLOOD SPECIMEN / Unknown Venipuncture / Unknown 03/23/2024 12:25 AM TARIFF COMPILING CLERK 03/23/2024 1:07 AM TARIFF COMPILING CLERK Josh Momin MD LAB - CHEMISTRY ORD ERABLES [facility] [address] [place] [phone], [place] [phone] * PTT [facility] (03/23/2024 12:25 AM TARIFF COMPILING CLERK) [facility] APTT 35.4 23.0 - 38.4 Seconds 03/23/2024 1:31 AM [facility] Comment:Suggested therapeuti c range for full dose I.V. unfractionated heparin therapy for venous 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 is 71 to 109 seconds. Blood BLOOD SPECIMEN / Unknown Venipuncture / Unknown 03/23/2024 12:25 AM TARIFF COMPILING CLERK 03/23/2024 1:05 AM [facility] Ghanshyam Dewey PA-C LAB - COAGULATION OR DERABLES Performing Organization Address [facility]/ZIP Co de Phone Number [address] [address], [facility] [phone] * (ABNORMAL) PT-INR [facility] (03/23/2024 12:25 AM [facility] PT 17.2(H) 12.1 - 14.8 Seconds 03/23/2024 1:31 AM [facility] INR 1.4 See Comment 03/23/2024 1:31 AM [facility] Comment:The suggested therap eutic range for standard coumadin (warfarin) therapy is an INR of 2.0-3.0. For high-risk patients (Mechanical Mitral Valve Prosthesis, etc.), the suggested prophylactic therapeutic range is an INR of 2.5-3.5. Blood BLOOD SPECIMEN / Unknown Venipuncture / Unknown 03/23/2024 12:25 AM TARIFF COMPILING CLERK 03/23/2024 1:05 AM [facility] Ghanshyam Dewey PA-C LAB - COAGULATION OR DERABLES Performing Organization Address [facility]/ZIP Co de Phone Number [facility] [address] [place] [phone], [facility] [phone] * (ABNORMAL) CBC W AUTO DIFFERENTIAL (03/23/2024 12:25 AM [facility] WBC 0.6(LL) 4.0 - 10.7 x10E9/L 03/23/2024 2:30 AM [facility] RBC Count 3.71(L) 4.30 - 5.80 x10E12/L 03/23/2024 2:30 AM [facility] Hemoglobin 10.6(L) 13.3 - 17.5 g/dL 03/23/2024 2:30 AM [facility] Hematocrit 32.2(L) 38.7 - 51.1 % 03/23/2024 2:30 AM [facility] MCV 86.8 80.0 - 98.0 fL 03/23/2024 2:30 AM [facility] MCH 28.6 26.7 - 33.6 pg 03/23/2024 2:30 AM [facility] MCHC 32.9 31.7 - 36.3 g/dL 03/23/2024 2:30 AM [facility] RDW-CV 17.3(H) 11.3 - 14.8 % 03/23/2024 2:30 AM [facility] Platelet Count 64(L) 150 - 420 x10E9/L 03/23/2024 2:30 AM [facility] MPV 03/23/2024 2:30 AM [facility] Comment:Unable to report Preliminary Absolute Neutrophil 0.09(L) 1.60 - 7.50 x10E9/L 03/23/2024 2:30 AM [facility] Blood BLOOD SPECIMEN / Unknown Venipuncture / Unknown 03/23/2024 12:25 AM TARIFF COMPILING CLERK 03/23/2024 1:07 AM TARIFF COMPILING CLERK Ghanshyam Dewey PA-C LAB - HEMATOLOGY ORD ERABLES [facility] [address] [place] [address] [phone] * MAGNESIUM BLOOD (03/22/2024 6:20 PM TARIFF COMPILING CLERK) Magnesium 2.0 1.6 - 2.6 mg/dL 03/22/2024 7:23 PM [facility] Blood BLOOD SPECIMEN / Unknown Lab Venipuncture / Unknown 03/22/2024 6:20 PM TARIFF COMPILING CLERK 03/22/2024 6:56 PM TARIFF COMPILING CLERK Josh Momin MD LAB - CHEMISTRY ORD ERABLES [address] [address], [facility] [phone] * URIC ACID BLOOD (03/22/2024 6:20 PM TARIFF COMPILING CLERK) Uric Acid 4.5 3.5 - 7.2 mg/dL 03/23/2024 12:03 AM TARIFF COMPILING CLERK [facility] Blood BLOOD SPECIMEN / Unknown Lab Venipuncture / Unknown 03/22/2024 6:20 PM TARIFF COMPILING CLERK 03/22/2024 6:56 PM TARIFF COMPILING CLERK Josh Momin MD LAB - CHEMISTRY ORD ERABLES [address] [address], [facility] [phone] * PHOSPHORUS BLOOD (03/22/2024 6:20 PM TARIFF COMPILING CLERK) Phosphorus 2.9 2.8 - 5.1 mg/dL 03/22/2024 7:23 PM TARIFF COMPILING CLERK [facility] Blood BLOOD SPECIMEN / Unknown Lab Venipuncture / Unknown 03/22/2024 6:20 PM TARIFF COMPILING CLERK 03/22/2024 6:56 PM TARIFF COMPILING CLERK Josh Momin MD LAB - CHEMISTRY ORD ERABLES [address] [address], [facility] [phone] * (ABNORMAL) COMPREHENSIVE METABOLIC PANEL (03/22/2024 6:20 PM TARIFF COMPILING CLERK) BUN 13 7 - 26 mg/dL 03/22/2024 7:23 PM [facility] Creatinine 1.08 0.71 - 1.16 mg/dL 03/22/2024 7:23 PM TARIFF COMPILING CLERK [facility] Sodium 141 136 - 145 mmol/L 03/22/2024 7:23 PM TARIFF COMPILING CLERK [facility] Potassium 3.8 3.5 - 4.5 mmol/L 03/22/2024 7:23 PM [facility] Chloride 109(H) 98 - 107 mmol/L 03/22/2024 7:23 PM [facility] CO2 24 22 - 29 mmol/L 03/22/2024 7:23 PM [facility] Glucose 113(H) 70 - 99 mg/dL 03/22/2024 7:23 PM [facility] Calcium 8.5 8.4 - 10.2 mg/dL 03/22/2024 7:23 PM [facility] Protein Total 6.2 6.0 - 8.3 g/dL 03/22/2024 7:23 PM [facility] Albumin 3.2(L) 3.4 - 5.0 g/dL 03/22/2024 7:23 PM [facility] Bilirubin Total 0.8 0.2 - 1.2 mg/dL 03/22/2024 7:23 PM [facility] Alkaline Phosphatase 107 40 - 150 U/L 03/22/2024 7:23 PM [facility] ALT 31 5 - 55 U/L 03/22/2024 7:23 PM [facility] AST 25 5 - 34 U/L 03/22/2024 7:23 PM [facility] Anion Gap 8 6 - 16 03/22/2024 7:23 PM [facility] BUN/Creatinine Ratio 12 7 - 23 03/22/2024 7:23 PM [facility] Osmolality Calculated 293 275 - 295 mOsm/kg 03/22/2024 7:23 PM [facility] Albumin/Globulin Ratio 1.1 1.1 - 2.3 03/22/2024 7:23 PM [facility] eGFR by CKD-EPI 70(L) >=90 mL/min/1.7 3 m2 03/22/2024 7:23 PM [facility] Blood BLOOD SPECIMEN / Unknown Lab Venipuncture / Unknown 03/22/2024 6:20 PM TARIFF COMPILING CLERK 03/22/2024 6:56 PM TARIFF COMPILING CLERK Josh Momin MD LAB - CHEMISTRY ORD ERABLES [facility] [address] [place] [address], [facility] [phone] * LDH BLOOD (03/22/2024 6:20 PM TARIFF COMPILING CLERK) [facility] LDH Total 168 125 - 243 Units/L 03/22/2024 7:23 PM [facility] Blood BLOOD SPECIMEN / Unknown Lab Venipuncture / Unknown 03/22/2024 6:20 PM TARIFF COMPILING CLERK 03/22/2024 6:56 PM TARIFF COMPILING CLERK Josh Momin MD LAB - CHEMISTRY ORD ERABLES [facility] [address] [place] [address], [facility] [phone] * (ABNORMAL) DIFFERENTIAL MANUAL (03/22/2024 6:58 AM TARIFF COMPILING CLERK) [facility] Neutrophil % 6(L) 41 - 74 % 03/22/2024 9:04 AM [facility] Lymphocyte % 82(H) 17 - 47 % 03/22/2024 9:04 AM [facility] Monocyte % 8 3 - 11 % 03/22/2024 9:04 AM [facility] Eosinophil % 4 0 - 7 % 03/22/2024 9:04 AM [facility] Neutrophil Absolute 0.03(L) 1.60 - 7.50 x10E9/L 03/22/2024 9:04 AM [facility] Lymphocyte Absolute 0.41(L) 1.00 - 4.40 x10E9/L 03/22/2024 9:04 AM [facility] Monocyte Absolute 0.04(L) 0.15 - 1.00 x10E9/L 03/22/2024 9:04 AM [facility] Eosinophil Absolute 0.02 0.00 - 0.60 x10E9/L 03/22/2024 9:04 AM [facility] RBC Morphology REVIEWED 03/22/2024 9:04 AM [facility] Microcytosis MODERATE(A) (none) 03/22/2024 9:04 AM [facility] Large Platelets PRESENT(A) (none) 9:04 AM TARIFF COMPILING CLERK [facility] Blood BLOOD SPECIMEN / Unknown Lab Venipuncture / Unknown 03/22/2024 6:58 AM TARIFF COMPILING CLERK 03/22/2024 7:27 AM TARIFF COMPILING CLERK Ghanshyam Dewey PA-C LAB - HEMATOLOGY ORD ERABLES [address] [address], [facility] [phone] * MAGNESIUM BLOOD (03/22/2024 6:58 AM TARIFF COMPILING CLERK) Magnesium 1.9 1.6 - 2.6 mg/dL 03/22/2024 7:57 AM TARIFF COMPILING CLERK [facility] Blood BLOOD SPECIMEN / Unknown Lab Venipuncture / Unknown 03/22/2024 6:58 AM TARIFF COMPILING CLERK 03/22/2024 7:30 AM TARIFF COMPILING CLERK Josh Momin MD LAB - CHEMISTRY ORD ERABLES [address] [address], [place] [phone] * URIC ACID BLOOD (03/22/2024 6:58 AM TARIFF COMPILING CLERK) Uric Acid 5.0 3.5 - 7.2 mg/dL 03/22/2024 7:57 AM TARIFF COMPILING CLERK [facility] Blood BLOOD SPECIMEN / Unknown Lab Venipuncture / Unknown 03/22/2024 6:58 AM TARIFF COMPILING CLERK 03/22/2024 7:30 AM TARIFF COMPILING CLERK Josh Momin MD LAB - CHEMISTRY ORD ERABLES [address] [address], [place] [phone] * PHOSPHORUS BLOOD (03/22/2024 6:58 AM TARIFF COMPILING CLERK) Phosphorus 2.8 2.8 - 5.1 mg/dL 03/22/2024 7:57 AM [facility] Blood BLOOD SPECIMEN / Unknown Lab Venipuncture / Unknown 03/22/2024 6:58 AM TARIFF COMPILING CLERK 03/22/2024 7:30 AM [facility] Josh Momin MD LAB - CHEMISTRY ORD ERABLES [facility] [address] [place] [address], [facility] [phone] * (ABNORMAL) COMPREHENSIVE METABOLIC PANEL (03/22/2024 6:58 AM [facility] BUN 11 7 - 26 mg/dL 03/22/2024 7:57 AM [facility] Creatinine 1.11 0.71 - 1.16 mg/dL 03/22/2024 7:57 AM [facility] Sodium 141 136 - 145 mmol/L 03/22/2024 7:57 AM [facility] Potassium 3.8 3.5 - 4.5 mmol/L 03/22/2024 7:57 AM [facility] Chloride 110(H) 98 - 107 mmol/L 03/22/2024 7:57 AM [facility] CO2 24 22 - 29 mmol/L 03/22/2024 7:57 AM [facility] Glucose 103(H) 70 - 99 mg/dL 03/22/2024 7:57 AM [facility] Calcium 8.6 8.4 - 10.2 mg/dL 03/22/2024 7:57 AM [facility] Protein Total 5.6(L) 6.0 - 8.3 g/dL 03/22/2024 7:57 AM [facility] Albumin 2.9(L) 3.4 - 5.0 g/dL 03/22/2024 7:57 AM [facility] Bilirubin Total 0.9 0.2 - 1.2 mg/dL 03/22/2024 7:57 AM [facility] Alkaline Phosphatase 97 40 - 150 U/L 03/22/2024 7:57 AM [facility] ALT 25 5 - 55 U/L 03/22/2024 7:57 AM [facility] AST 19 5 - 34 U/L 03/22/2024 7:57 AM [facility] Anion Gap 7 6 - 16 03/22/2024 7:57 AM [facility] BUN/Creatinine Ratio 10 7 - 23 03/22/2024 7:57 AM [facility] Osmolality Calculated 292 275 - 295 mOsm/kg 03/22/2024 7:57 AM [facility] Albumin/Globulin Ratio 1.1 1.1 - 2.3 03/22/2024 7:57 AM [facility] eGFR by CKD-EPI 68(L) >=90 mL/min/1.7 3 m2 03/22/2024 7:57 AM [facility] Blood BLOOD SPECIMEN / Unknown Lab Venipuncture / Unknown 03/22/2024 6:58 AM TARIFF COMPILING CLERK 03/22/2024 7:30 AM T[employer] COMPILING CLERK Josh Momin MD LAB - CHEMISTRY ORD ERABLES Performing Organization Address City/[facility]/ZIP Co de Phone Number [address] [address], [facility] [phone] * LDH BLOOD (03/22/2024 6:58 AM TARIFF COMPILING CLERK) LDH Total 133 125 - 243 Units/L 03/22/2024 7:57 AM [facility] Blood BLOOD SPECIMEN / Unknown Lab Venipuncture / Unknown 03/22/2024 6:58 AM TARIFF COMPILING CLERK 03/22/2024 7:30 AM TARIFF COMPILING CLERK Josh Momin MD LAB - CHEMISTRY ORD ERABLES [address] [address], [facility] [phone] * PTT [facility] (03/22/2024 6:58 AM TARIFF COMPILING CLERK) APTT 34.9 23.0 - 38.4 Seconds 03/22/2024 7:48 AM [facility] Comment:Suggested therapeuti c range for full dose I.V. unfractionated heparin therapy for venous 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 is 71 to 109 seconds. Blood BLOOD SPECIMEN / Unknown Lab Venipuncture / Unknown 03/22/2024 6:58 AM TARIFF COMPILING CLERK 03/22/2024 7:25 AM TARIFF COMPILING CLERK Ghanshyam Dewey PA-C LAB - COAGULATION OR DERABLES Performing Organization Address [facility] Co de Phone Number [facility] [address] [place] [id number], [facility] [phone] * (ABNORMAL) PT-INR [facility] (03/22/2024 6:58 AM TARIFF COMPILING CLERK) Pathologist [facility] PT 17.5(H) 12.1 - 14.8 Seconds 03/22/2024 7:48 AM [facility] INR 1.5 See Comment 03/22/2024 7:48 AM [facility] Comment:The suggested therap eutic range for standard coumadin (warfarin) therapy is an INR of 2.0-3.0. For high-risk patients (Mechanical Mitral Valve Prosthesis, etc.), the suggested prophylactic therapeutic range is an INR of 2.5-3.5. Blood BLOOD SPECIMEN / Unknown Lab Venipuncture / Unknown 03/22/2024 6:58 AM TARIFF COMPILING CLERK 03/22/2024 7:25 AM TAR[employer] COMPILING CLERK Ghanshyam Dewey PA-C LAB - COAGULATION OR DERABLES Performing Organization Address City/[facility] Co de Phone Number [address] [address], [facility] [phone] * (ABNORMAL) CBC W AUTO DIFFERENTIAL (03/22/2024 6:58 AM TARIFF COMPILING CLERK) WBC 0.5(LL) 4.0 - 10.7 x10E9/L 03/22/2024 9:05 AM [facility] RBC Count 3.83(L) 4.30 - 5.80 x10E12/L 03/22/2024 9:05 AM [facility] Hemoglobin 10.9(L) 13.3 - 17.5 g/dL 03/22/2024 9:05 AM [facility] Hematocrit 33.2(L) 38.7 - 51.1 % 03/22/2024 9:05 AM [facility] MCV 86.7 80.0 - 98.0 fL 03/22/2024 9:05 AM [facility] MCH 28.5 26.7 - 33.6 pg 03/22/2024 9:05 AM [facility] MCHC 32.8 31.7 - 36.3 g/dL 03/22/2024 9:05 AM [facility] RDW-CV 17.2(H) 11.3 - 14.8 % 03/22/2024 9:05 AM [facility] Platelet Count 66(L) 150 - 420 x10E9/L 03/22/2024 9:05 AM [facility] Preliminary Absolute Neutrophil 0.05(L) 1.60 - 7.50 x10E9/L 03/22/2024 9:05 AM [facility] Blood BLOOD SPECIMEN / Unknown Lab Venipuncture / Unknown 03/22/2024 6:58 AM TARIFF COMPILING CLERK 03/22/2024 7:27 AM TARIFF COMPILING CLERK Ghanshyam Dewey PA-C LAB - HEMATOLOGY ORD ERABLES [address] [address], [facility] [phone] * MAGNESIUM BLOOD (03/21/2024 3:47 AM TARIFF COMPILING CLERK) Magnesium 1.8 1.6 - 2.6 mg/dL 03/21/2024 5:35 AM [facility] Blood BLOOD SPECIMEN / Unknown Venipuncture / Unknown 03/21/2024 3:47 AM TARIFF COMPILING CLERK 03/21/2024 4:32 AM TARIFF COMPILING CLERK Josh Momin MD LAB - CHEMISTRY ORD ERABLES [address] [address], [facility] [phone] * URIC ACID BLOOD (03/21/2024 3:47 AM TARIFF COMPILING CLERK) Uric Acid 6.7 3.5 - 7.2 mg/dL 03/21/2024 5:35 AM [facility] Blood BLOOD SPECIMEN / Unknown Venipuncture / Unknown 03/21/2024 3:47 AM TARIFF COMPILING CLERK 03/21/2024 4:32 AM TARIFF COMPILING CLERK Josh Momin MD LAB - CHEMISTRY ORD ERABLES [address] [address], [facility] [phone] * PHOSPHORUS BLOOD (03/21/2024 3:47 AM TARIFF COMPILING CLERK) Phosphorus 2.9 2.8 - 5.1 mg/dL 03/21/2024 5:35 AM [facility] Blood BLOOD SPECIMEN / Unknown Venipuncture / Unknown 03/21/2024 3:47 AM TARIFF COMPILING CLERK 03/21/2024 4:32 AM TARIFF COMPILING CLERK Josh Momin MD LAB - CHEMISTRY ORD ERABLES [address] [address], [facility] [phone] * (ABNORMAL) COMPREHENSIVE METABOLIC PANEL (03/21/2024 3:47 AM TARIFF COMPILING CLERK) BUN 15 7 - 26 mg/dL 03/21/2024 5:35 AM [facility] Creatinine 1.27(H) 0.71 - 1.16 mg/dL 03/21/2024 5:35 AM [facility] Sodium 141 136 - 145 mmol/L 03/21/2024 5:35 AM [facility] Potassium 3.8 3.5 - 4.5 mmol/L 03/21/2024 5:35 AM [facility] Chloride 110(H) 98 - 107 mmol/L 03/21/2024 5:35 AM [facility] CO2 24 22 - 29 mmol/L 03/21/2024 5:35 AM [facility] Glucose 115(H) 70 - 99 mg/dL 03/21/2024 5:35 AM [facility] Calcium 8.6 8.4 - 10.2 mg/dL 03/21/2024 5:35 AM [facility] Protein Total 5.9(L) 6.0 - 8.3 g/dL 03/21/2024 5:35 AM [facility] Albumin 3.1(L) 3.4 - 5.0 g/dL 03/21/2024 5:35 AM [facility] Bilirubin Total 0.9 0.2 - 1.2 mg/dL 03/21/2024 5:35 AM [facility] Alkaline Phosphatase 100 40 - 150 U/L 03/21/2024 5:35 AM [facility] ALT 18 5 - 55 U/L 03/21/2024 5:35 AM [facility] AST 14 5 - 34 U/L 03/21/2024 5:35 AM [facility] Anion Gap 7 6 - 16 03/21/2024 5:35 AM [facility] BUN/Creatinine Ratio 12 7 - 23 03/21/2024 5:35 AM [facility] Osmolality Calculated 294 275 - 295 mOsm/kg 03/21/2024 5:35 AM [facility] Albumin/Globulin Ratio 1.1 1.1 - 2.3 03/21/2024 5:35 AM [facility] eGFR by CKD-EPI 57(L) >=90 mL/min/1.7 3 m2 03/21/2024 5:35 AM [facility] Blood BLOOD SPECIMEN / Unknown Venipuncture / Unknown 03/21/2024 3:47 AM TARIFF COMPILING CLERK 03/21/2024 4:32 AM [facility] Josh Momin MD LAB - CHEMISTRY ORD ERABLES [facility] [address] [place] [address], [facility] [phone] * LDH BLOOD (03/21/2024 3:47 AM TARIFF COMPILING CLERK) LDH Total 144 125 - 243 Units/L 03/21/2024 5:35 AM [facility] Blood BLOOD SPECIMEN / Unknown Venipuncture / Unknown 03/21/2024 3:47 AM TARIFF COMPILING CLERK 03/21/2024 4:32 AM TARIFF COMPILING CLERK Josh Momin MD LAB - CHEMISTRY ORD ERABLES Performing Organization Address [facility] Co de Phone Number [address] [address], [facility] [phone] * PTT [facility] (03/21/2024 3:47 AM TARIFF COMPILING CLERK) APTT 34.0 23.0 - 38.4 Seconds 03/21/2024 4:59 AM [facility] Comment:Suggested therapeuti c range for full dose I.V. unfractionated heparin therapy for venous 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 is 71 to 109 seconds. Blood BLOOD SPECIMEN / Unknown Venipuncture / Unknown 03/21/2024 3:47 AM TARIFF COMPILING CLERK 03/21/2024 4:31 AM TARIFF COMPILING CLERK Ghanshyam Dewey PA-C LAB - COAGULATION OR DERABLES Performing Organization Address [facility] Co de Phone Number [address] [address], [facility] [phone] * (ABNORMAL) PT-INR [facility] (03/21/2024 3:47 AM TARIFF COMPILING CLERK) PT 17.4(H) 12.1 - 14.8 Seconds 03/21/2024 4:59 AM [facility] INR 1.5 See Comment 03/21/2024 4:59 AM [facility] Comment:The suggested therap eutic range for standard coumadin (warfarin) therapy is an INR of 2.0-3.0. For high-risk patients (Mechanical Mitral Valve Prosthesis, etc.), the suggested prophylactic therapeutic range is an INR of 2.5-3.5. Blood BLOOD SPECIMEN / Unknown Venipuncture / Unknown 03/21/2024 3:47 AM TARIFF COMPILING CLERK 03/21/2024 4:31 AM TARIFF COMPILING CLERK Ghanshyam Dewey PA-C LAB - COAGULATION OR DERABLES Performing Organization Address [facility] Co de Phone Number [address] [place] [address], [facility] [phone] * (ABNORMAL) CBC W AUTO DIFFERENTIAL (03/21/2024 3:47 AM TARIFF COMPILING CLERK) WBC 0.3(LL) 4.0 - 10.7 x10E9/L 03/21/2024 4:52 AM [facility] Comment:No differential repo rted. WBC count <0.5 RBC Count 3.81(L) 4.30 - 5.80 x10E12/L 03/21/2024 4:52 AM [facility] Hemoglobin 10.8(L) 13.3 - 17.5 g/dL 03/21/2024 4:52 AM [facility] Hematocrit 32.7(L) 38.7 - 51.1 % 03/21/2024 4:52 AM [facility] MCV 85.8 80.0 - 98.0 fL 03/21/2024 4:52 AM [facility] MCH 28.3 26.7 - 33.6 pg 03/21/2024 4:52 AM [facility] MCHC 33.0 31.7 - 36.3 g/dL 03/21/2024 4:52 AM [facility] RDW-CV 17.4(H) 11.3 - 14.8 % 03/21/2024 4:52 AM [facility] Platelet Count 75(L) 150 - 420 x10E9/L 03/21/2024 4:52 AM [facility] MPV 12.5(H) 7.8 - 11.4 fL 03/21/2024 4:52 AM [facility] Preliminary Absolute Neutrophil 03/21/2024 4:52 AM [facility] Blood BLOOD SPECIMEN / Unknown Venipuncture / Unknown 03/21/2024 3:47 AM TARIFF COMPILING CLERK 03/21/2024 4:32 AM [facility] Ghanshyam Dewey PA-C LAB - HEMATOLOGY ORD ERABLES [facility] [address] [place] [address], [place] [phone] * MAGNESIUM BLOOD (03/20/2024 4:07 PM TARIFF COMPILING CLERK) Magnesium 2.0 1.6 - 2.6 mg/dL 03/20/2024 5:38 PM TARIFF COMPILING CLERK [facility] Blood BLOOD SPECIMEN / Unknown Lab Venipuncture / Unknown 03/20/2024 4:07 PM TARIFF COMPILING CLERK 03/20/2024 4:47 PM TARIFF COMPILING CLERK Josh Momin MD LAB - CHEMISTRY ORD ERABLES [address] [address], [place] [phone] * (ABNORMAL) URIC ACID BLOOD (03/20/2024 4:07 PM TARIFF COMPILING CLERK) Uric Acid 7.3(H) 3.5 - 7.2 mg/dL 03/20/2024 10:10 PM TARIFF COMPILING CLERK [facility] Blood BLOOD SPECIMEN / Unknown Lab Venipuncture / Unknown 03/20/2024 4:07 PM TARIFF COMPILING CLERK 03/20/2024 4:47 PM TARIFF COMPILING CLERK Josh Momin MD LAB - CHEMISTRY ORD ERABLES [address] [address], [place] [phone] * PHOSPHORUS BLOOD (03/20/2024 4:07 PM TARIFF COMPILING CLERK) Phosphorus 3.5 2.8 - 5.1 mg/dL 03/20/2024 5:38 PM TARIFF COMPILING CLERK [facility] Blood BLOOD SPECIMEN / Unknown Lab Venipuncture / Unknown 03/20/2024 4:07 PM TARIFF COMPILING CLERK 03/20/2024 4:47 PM TARIFF COMPILING CLERK Josh Momin MD LAB - CHEMISTRY ORD ERABLES [address] [address], [place] [phone] * (ABNORMAL) COMPREHENSIVE METABOLIC PANEL (03/20/2024 4:07 PM [facility]) BUN 16 7 - 26 mg/dL 03/20/2024 5:38 PM [facility] Creatinine 1.32(H) 0.71 - 1.16 mg/dL 03/20/2024 5:38 PM [facility] Sodium 143 136 - 145 mmol/L 03/20/2024 5:38 PM [facility] Potassium 4.1 3.5 - 4.5 mmol/L 03/20/2024 5:38 PM [facility] Chloride 110(H) 98 - 107 mmol/L 03/20/2024 5:38 PM [facility] CO2 23 22 - 29 mmol/L 03/20/2024 5:38 PM [facility] Glucose 112(H) 70 - 99 mg/dL 03/20/2024 5:38 PM [facility] Calcium 8.9 8.4 - 10.2 mg/dL 03/20/2024 5:38 PM [facility] Protein Total 6.5 6.0 - 8.3 g/dL 03/20/2024 5:38 PM [facility] Albumin 3.3(L) 3.4 - 5.0 g/dL 03/20/2024 5:38 PM [facility] Bilirubin Total 0.7 0.2 - 1.2 mg/dL 03/20/2024 5:38 PM [facility] Alkaline Phosphatase 110 40 - 150 U/L 03/20/2024 5:38 PM [facility] ALT 18 5 - 55 U/L 03/20/2024 5:38 PM [facility] AST 15 5 - 34 U/L 03/20/2024 5:38 PM [facility] Anion Gap 10 6 - 16 03/20/2024 5:38 PM [facility] BUN/Creatinine Ratio 12 7 - 23 03/20/2024 5:38 PM [facility] Osmolality Calculated 298(H) 275 - 295 mOsm/kg 03/20/2024 5:38 PM [facility] Albumin/Globulin Ratio 1.0(L) 1.1 - 2.3 03/20/2024 5:38 PM [facility] eGFR by CKD-EPI 55(L) >=90 mL/min/1.7 3 m2 03/20/2024 5:38 PM [facility] Blood BLOOD SPECIMEN / Unknown Lab Venipuncture / Unknown 03/20/2024 4:07 PM TARIFF COMPILING CLERK 03/20/2024 4:47 PM TARIFF COMPILING CLERK Josh Momin MD LAB - CHEMISTRY ORD ERABLES [address] [address], [facility] [phone] * LDH BLOOD (03/20/2024 4:07 PM TARIFF COMPILING CLERK) Pathologist [facility] LDH Total 139 125 - 243 Units/L 03/20/2024 5:38 PM [facility] Blood BLOOD SPECIMEN / Unknown Lab Venipuncture / Unknown 03/20/2024 4:07 PM TARIFF COMPILING CLERK 03/20/2024 4:47 PM TARIFF COMPILING CLERK Josh Momin MD LAB - CHEMISTRY ORD ERABLES [address] [address], [facility] [phone] * (ABNORMAL) DIFFERENTIAL MANUAL (03/20/2024 6:28 AM TARIFF COMPILING CLERK) Neutrophil % 22(L) 41 - 74 % 03/20/2024 10:01 AM [facility] Lymphocyte % 78(H) 17 - 47 % 03/20/2024 10:01 AM [facility] Neutrophil Absolute 0.15(L) 1.60 - 7.50 x10E9/L 03/20/2024 10:01 AM [facility] Lymphocyte Absolute 0.55(L) 1.00 - 4.40 x10E9/L 03/20/2024 10:01 AM [facility] RBC Morphology REVIEWED 03/20/2024 10:01 AM [facility] Schistocytes FEW(A) (none) 03/20/2024 10:01 AM [facility] Blood BLOOD SPECIMEN / Unknown Venipuncture / Unknown 03/20/2024 6:28 AM TARIFF COMPILING CLERK 03/20/2024 7:28 AM TARIFF COMPILING CLERK Ghanshyam Dewey PA-C LAB - HEMATOLOGY ORD ERABLES Performing Organization Address City/[facility]/ZIP Co de Phone Number [address] [address], [place] [phone] * LDH BLOOD (03/20/2024 6:28 AM TARIFF COMPILING CLERK) LDH Total 133 125 - 243 Units/L 03/20/2024 7:58 AM TARIFF COMPILING CLERK [facility] Blood BLOOD SPECIMEN / Unknown Venipuncture / Unknown 03/20/2024 6:28 AM TARIFF COMPILING CLERK 03/20/2024 7:28 AM TARIFF COMPILING CLERK Ghanshyam Dewey PA-C LAB - CHEMISTRY ORDE RABLES Performing Organization Address [facility]/ZIP Co de Phone Number [address] [address], [place] [phone] * PTT [facility] (03/20/2024 6:28 AM TARIFF COMPILING CLERK) APTT 33.4 23.0 - 38.4 Seconds 03/20/2024 7:37 AM TARIFF COMPILING CLERK [facility] Comment:Suggested therapeuti c range for full dose I.V. unfractionated heparin therapy for venous 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 is 71 to 109 seconds. Blood BLOOD SPECIMEN / Unknown Venipuncture / Unknown 03/20/2024 6:28 AM TARIFF COMPILING CLERK 03/20/2024 6:33 AM TARIFF COMPILING CLERK Ghanshyam Dewey PA-C LAB - COAGULATION OR DERABLES Performing Organization Address City/[facility]/ZIP Co de Phone Number [address] [address], [place] [phone] * (ABNORMAL) PT-INR [facility] (03/20/2024 6:28 AM TARIFF COMPILING CLERK) PT 17.1(H) 12.1 - 14.8 Seconds 03/20/2024 7:37 AM TARIFF COMPILING CLERK [facility] INR 1.4 See Comment 03/20/2024 7:37 AM [facility] Comment:The suggested therap eutic range for standard coumadin (warfarin) therapy is an INR of 2.0-3.0. For high-risk patients (Mechanical Mitral Valve Prosthesis, etc.), the suggested prophylactic therapeutic range is an INR of 2.5-3.5. Blood BLOOD SPECIMEN / Unknown Venipuncture / Unknown 03/20/2024 6:28 AM TARIFF COMPILING CLERK 03/20/2024 6:33 AM TARIFF COMPILING CLERK Ghanshyam Dewey PA-C LAB - COAGULATION OR DERABLES Performing Organization Address [facility]/ZIP Co de Phone Number [address] [address], [facility] [phone] * (ABNORMAL) URIC ACID BLOOD (03/20/2024 6:28 AM TARIFF COMPILING CLERK) Uric Acid 8.1(H) 3.5 - 7.2 mg/dL 03/20/2024 7:58 AM TARIFF COMPILING CLERK [facility] Blood BLOOD SPECIMEN / Unknown Venipuncture / Unknown 03/20/2024 6:28 AM TARIFF COMPILING CLERK 03/20/2024 7:28 AM TARIFF COMPILING CLERK Ghanshyam Dewey PA-C LAB - CHEMISTRY CHELI MONREAL Performing Organization Address [facility] Co de Phone Number [address] [address], [facility] [phone] * PHOSPHORUS BLOOD (03/20/2024 6:28 AM TARIFF COMPILING CLERK) Phosphorus 3.6 2.8 - 5.1 mg/dL 03/20/2024 7:58 AM TARIFF COMPILING CLERK [facility] Blood BLOOD SPECIMEN / Unknown Venipuncture / Unknown 03/20/2024 6:28 AM TARIFF COMPILING CLERK 03/20/2024 7:28 AM TARIFF COMPILING CLERK Ghanshyam Dewey PA-C LAB - CHEMISTRY CHELI MONREAL Performing Organization Address City/[facility]/ZIP Co de Phone Number [address] [place] [address], [facility] [phone] * MAGNESIUM BLOOD (03/20/2024 6:28 AM TARIFF COMPILING CLERK) Pathologist [facility] Magnesium 2.0 1.6 - 2.6 mg/dL 03/20/2024 7:58 AM [facility] Blood BLOOD SPECIMEN / Unknown Venipuncture / Unknown 03/20/2024 6:28 AM TARIFF COMPILING CLERK 03/20/2024 7:28 AM TARIFF COMPILING CLERK Ghanshyam Dewey PA-C LAB - CHEMISTRY ORDE JOCELIN [facility] [address] [place] [address], [facility] [phone] * (ABNORMAL) COMPREHENSIVE METABOLIC PANEL (03/20/2024 6:28 AM TARIFF COMPILING CLERK) Pathologist [facility] BUN 17 7 - 26 mg/dL 03/20/2024 7:58 AM [facility] Creatinine 1.34(H) 0.71 - 1.16 mg/dL 03/20/2024 7:58 AM [facility] Sodium 140 136 - 145 mmol/L 03/20/2024 7:58 AM [facility] Potassium 3.9 3.5 - 4.5 mmol/L 03/20/2024 7:58 AM [facility] Chloride 109(H) 98 - 107 mmol/L 03/20/2024 7:58 AM [facility] CO2 23 22 - 29 mmol/L 03/20/2024 7:58 AM [facility] Glucose 111(H) 70 - 99 mg/dL 03/20/2024 7:58 AM [facility] Calcium 8.9 8.4 - 10.2 mg/dL 03/20/2024 7:58 AM [facility] Protein Total 6.1 6.0 - 8.3 g/dL 03/20/2024 7:58 AM [facility] Albumin 3.1(L) 3.4 - 5.0 g/dL 03/20/2024 7:58 AM [facility] Bilirubin Total 0.6 0.2 - 1.2 mg/dL 03/20/2024 7:58 AM [facility] Alkaline Phosphatase 92 40 - 150 U/L 03/20/2024 7:58 AM [facility] ALT 17 5 - 55 U/L 03/20/2024 7:58 AM [facility] AST 14 5 - 34 U/L 03/20/2024 7:58 AM [facility] Anion Gap 8 6 - 16 03/20/2024 7:58 AM [facility] BUN/Creatinine Ratio 13 7 - 23 03/20/2024 7:58 AM [facility] Osmolality Calculated 292 275 - 295 mOsm/kg 03/20/2024 7:58 AM [facility] Albumin/Globulin Ratio 1.0(L) 1.1 - 2.3 03/20/2024 7:58 AM [facility] eGFR by CKD-EPI 54(L) >=90 mL/min/1.7 3 m2 03/20/2024 7:58 AM [facility] Blood BLOOD SPECIMEN / Unknown Venipuncture / Unknown 03/20/2024 6:28 AM TARIFF COMPILING CLERK 03/20/2024 7:28 AM [facility] Ghanshyam Dewey PA-C LAB - CHEMISTRY ELIE JOCELIN [facility] Organization Address City/State/[facility] Co de Phone Number [facility] [address] [place] [address], [facility] [phone] * (ABNORMAL) CBC W AUTO DIFFERENTIAL (03/20/2024 6:28 AM [facility]) WBC 0.7(LL) 4.0 - 10.7 x10E9/L 03/20/2024 10:02 AM [facility] RBC Count 4.01(L) 4.30 - 5.80 x10E12/L 03/20/2024 10:02 AM [facility] Hemoglobin 11.6(L) 13.3 - 17.5 g/dL 03/20/2024 10:02 AM [facility] Hematocrit 34.4(L) 38.7 - 51.1 % 03/20/2024 10:02 AM [facility] MCV 85.8 80.0 - 98.0 fL 03/20/2024 10:02 AM [facility] MCH 28.9 26.7 - 33.6 pg 03/20/2024 10:02 AM [facility] MCHC 33.7 31.7 - 36.3 g/dL 03/20/2024 10:02 AM [facility] RDW-CV 17.2(H) 11.3 - 14.8 % 03/20/2024 10:02 AM [facility] Platelet Count 82(L) 150 - 420 x10E9/L 03/20/2024 10:02 AM [facility] MPV 12.7(H) 7.8 - 11.4 fL 03/20/2024 10:02 AM [facility] Preliminary Absolute Neutrophil 0.11(L) 1.60 - 7.50 x10E9/L 03/20/2024 10:02 AM [facility] Blood BLOOD SPECIMEN / Unknown Venipuncture / Unknown 03/20/2024 6:28 AM TARIFF COMPILING CLERK 03/20/2024 7:28 AM [facility] Ghanshyam Dewey PA-C LAB - HEMATOLOGY ORD ERABLES [facility] [address] [place] [address], [facility] [phone] * (ABNORMAL) DIFFERENTIAL MANUAL (03/19/2024 6:23 AM TARIFF COMPILING CLERK) Neutrophil % 26(L) 41 - 74 % 03/19/2024 7:46 AM [facility] Lymphocyte % 65(H) 17 - 47 % 03/19/2024 7:46 AM [facility] Monocyte % 4 3 - 11 % 03/19/2024 7:46 AM [facility] Eosinophil % 4 0 - 7 % 03/19/2024 7:46 AM [facility] Blasts % 1(H) 0% % 03/19/2024 7:46 AM [facility] Neutrophil Absolute 0.21(L) 1.60 - 7.50 x10E9/L 03/19/2024 7:46 AM [facility] Lymphocyte Absolute 0.52(L) 1.00 - 4.40 x10E9/L 03/19/2024 7:46 AM [facility] Monocyte Absolute 0.03(L) 0.15 - 1.00 x10E9/L 03/19/2024 7:46 AM [facility] Eosinophil Absolute 0.03 0.00 - 0.60 x10E9/L 03/19/2024 7:46 AM [facility] RBC Morphology REVIEWED 03/19/2024 7:46 AM [facility] Microcytosis MODERATE(A) (none) 03/19/2024 7:46 AM [facility] Blood BLOOD SPECIMEN / Unknown Venipuncture / Unknown 03/19/2024 6:23 AM TARIFF COMPILING CLERK 03/19/2024 6:42 AM TARIFF COMPILING CLERK Ghanshyam Dewey PA-C LAB - HEMATOLOGY ORD ERABLES Performing Organization Address City/[facility]/ZIP Co de Phone Number [address] [address], [facility] [phone] * (ABNORMAL) LDH BLOOD (03/19/2024 6:23 AM TARIFF COMPILING CLERK) LDH Total 122(L) 125 - 243 Units/L 03/19/2024 7:10 AM [facility] Blood BLOOD SPECIMEN / Unknown Venipuncture / Unknown 03/19/2024 6:23 AM TARIFF COMPILING CLERK 03/19/2024 6:42 AM TARIFF COMPILING CLERK Ghanshyam Dewey PA-C LAB - CHEMISTRY ORDE RABNIC [facility] [address] [place] [id number], [place] [phone] * PTT [facility] (03/19/2024 6:23 AM TARIFF COMPILING CLERK) APTT 35.8 23.0 - 38.4 Seconds 03/19/2024 7:05 AM [facility] Comment:Suggested therapeuti c range for full dose I.V. unfractionated heparin therapy for venous 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 is 71 to 109 seconds. Blood BLOOD SPECIMEN / Unknown Venipuncture / Unknown 03/19/2024 6:23 AM TARIFF COMPILING CLERK 03/19/2024 6:36 AM TARIFF COMPILING CLERK Ghanshyam Dewey PA-C LAB - COAGULATION OR DERABLES Performing Organization Address City/[facility]/ZIP Co de Phone Number [facility] [address] [place] [id number], [place] [phone] * (ABNORMAL) PT-INR [facility] (03/19/2024 6:23 AM TARIFF COMPILING CLERK) PT 17.7(H) 12.1 - 14.8 Seconds 03/19/2024 7:05 AM TARIFF COMPILING CLERK [facility] LABORATORY [facility] INR 1.5 See Comment 03/19/2024 7:05 AM [facility] Comment:The suggested therap eutic range for standard coumadin (warfarin) therapy is an INR of 2.0-3.0. For high-risk patients (Mechanical Mitral Valve Prosthesis, etc.), the suggested prophylactic therapeutic range is an INR of 2.5-3.5. Blood BLOOD SPECIMEN / Unknown Venipuncture / Unknown 03/19/2024 6:23 AM TARIFF COMPILING CLERK 03/19/2024 6:36 AM TARIFF COMPILING CLERK Ghanshyam Dewey PA-C LAB - COAGULATION OR DERABLES Performing Organization Address [facility]/ZIP Co de Phone Number [address] [address], [place] [phone] * URIC ACID BLOOD (03/19/2024 6:23 AM TARIFF COMPILING CLERK) Uric Acid 5.7 3.5 - 7.2 mg/dL 03/19/2024 7:10 AM TARIFF COMPILING CLERK [facility] Blood BLOOD SPECIMEN / Unknown Venipuncture / Unknown 03/19/2024 6:23 AM TARIFF COMPILING CLERK 03/19/2024 6:42 AM TARIFF COMPILING CLERK Ghanshyam Dewey PA-C LAB - CHEMISTRY ORDE RABLES [address] [address], [place] [phone] * PHOSPHORUS BLOOD (03/19/2024 6:23 AM TARIFF COMPILING CLERK) [facility] Phosphorus 3.1 2.8 - 5.1 mg/dL 03/19/2024 7:10 AM [facility] Blood BLOOD SPECIMEN / Unknown Venipuncture / Unknown 03/19/2024 6:23 AM TARIFF COMPILING CLERK 03/19/2024 6:42 AM TARIFF COMPILING CLERK Ghanshyam Dewey PA-C LAB - CHEMISTRY CHELI [facility] [address] [place] [address], [facility] [phone] * MAGNESIUM BLOOD (03/19/2024 6:23 AM TARIFF COMPILING CLERK) [facility] Magnesium 2.0 1.6 - 2.6 mg/dL 03/19/2024 7:10 AM [facility] Blood BLOOD SPECIMEN / Unknown Venipuncture / Unknown 03/19/2024 6:23 AM TARIFF COMPILING CLERK 03/19/2024 6:42 AM TARIFF COMPILING CLERK Ghanshyam Dewey PA-C LAB - CHEMISTRY CHELI [facility] [address] [place] [address], [facility] [phone] * (ABNORMAL) COMPREHENSIVE METABOLIC PANEL (03/19/2024 6:23 AM TARIFF COMPILING CLERK) [facility] BUN 12 7 - 26 mg/dL 03/19/2024 7:10 AM [facility] Creatinine 1.25(H) 0.71 - 1.16 mg/dL 03/19/2024 7:10 AM [facility] Sodium 141 136 - 145 mmol/L 03/19/2024 7:10 AM [facility] Potassium 3.9 3.5 - 4.5 mmol/L 03/19/2024 7:10 AM [facility] Chloride 110(H) 98 - 107 mmol/L 03/19/2024 7:10 AM [facility] CO2 25 22 - 29 mmol/L 03/19/2024 7:10 AM [facility] Glucose 108(H) 70 - 99 mg/dL 03/19/2024 7:10 AM [facility] Calcium 9.2 8.4 - 10.2 mg/dL 03/19/2024 7:10 AM [facility] Protein Total 6.2 6.0 - 8.3 g/dL 03/19/2024 7:10 AM [facility] Albumin 3.2(L) 3.4 - 5.0 g/dL 03/19/2024 7:10 AM [facility] Bilirubin Total 0.8 0.2 - 1.2 mg/dL 03/19/2024 7:10 AM [facility] Alkaline Phosphatase 104 40 - 150 U/L 03/19/2024 7:10 AM [facility] ALT 16 5 - 55 U/L 03/19/2024 7:10 AM [facility] [facility] AST 12 5 - 34 U/L 03/19/2024 7:10 AM [facility] Anion Gap 6 6 - 16 03/19/2024 7:10 AM [facility] BUN/Creatinine Ratio 10 7 - 23 03/19/2024 7:10 AM [facility] Osmolality Calculated 292 275 - 295 mOsm/kg 03/19/2024 7:10 AM [facility] Albumin/Globulin Ratio 1.1 1.1 - 2.3 03/19/2024 7:10 AM [facility] eGFR by CKD-EPI 59(L) >=90 mL/min/1.7 3 m2 03/19/2024 7:10 AM [facility] Blood BLOOD SPECIMEN / Unknown Venipuncture / Unknown 03/19/2024 6:23 AM TARIFF COMPILING CLERK 03/19/2024 6:42 AM [facility] Ghanshyam Dewey PA-C LAB - CHEMISTRY CHELI MONREAL [facility] [address] [place] [address], [facility] [phone] * (ABNORMAL) CBC W AUTO DIFFERENTIAL (03/19/2024 6:23 AM [facility] WBC 0.8(LL) 4.0 - 10.7 x10E9/L 03/19/2024 7:48 AM [facility] RBC Count 4.05(L) 4.30 - 5.80 x10E12/L 03/19/2024 7:48 AM [facility] Hemoglobin 11.7(L) 13.3 - 17.5 g/dL 03/19/2024 7:48 AM [facility] Hematocrit 34.6(L) 38.7 - 51.1 % 03/19/2024 7:48 AM [facility] MCV 85.4 80.0 - 98.0 fL 03/19/2024 7:48 AM [facility] MCH 28.9 26.7 - 33.6 pg 03/19/2024 7:48 AM [facility] MCHC 33.8 31.7 - 36.3 g/dL 03/19/2024 7:48 AM [facility] RDW-CV 17.0(H) 11.3 - 14.8 % 03/19/2024 7:48 AM [facility] Platelet Count 87(L) 150 - 420 x10E9/L 03/19/2024 7:48 AM [facility] MPV 12.8(H) 7.8 - 11.4 fL 03/19/2024 7:48 AM [facility] Preliminary Absolute Neutrophil 0.13(L) 1.60 - 7.50 x10E9/L 03/19/2024 7:48 AM [facility] Blood BLOOD SPECIMEN / Unknown Venipuncture / Unknown 03/19/2024 6:23 AM TARIFF COMPILING CLERK 03/19/2024 6:42 AM [facility] Gh[facility]hyam Dewey PA-C LAB - HEMATOLOGY ORD ERABLES [address] [address], [facility] [phone] * EKG 12-LEAD (03/18/2024 1:48 PM TARIFF COMPILING CLERK) Ventricular Rate 75 BPM [facility] MUSE Atrial Rate 75 BPM [facility] MUSE P-R Interval 122 ms [facility] MUSE QRS Duration ms 118 ms [facility] MUSE Q-T Interval ms 410 ms [facility] MUSE QTC Calculation (Bezet) 457 ms [facility] MUSE Calculated P Rindge 42 degrees [facility] MUSE Calculated R Rindge 36 degrees [facility] MUSE Calculated T Rindge -134 degrees [facility] MUSE Interpretation EKG NORMAL SINUS RHYTHM WITH SINUS ARRHYTHMIA INCOMPLETE RIGHT BUNDLE BRANCH BLOCK ST & MARKED T WAVE ABNORMALITY, CONSIDER ANTEROLATERAL ISCHEMIA ABNORMAL ECG NO PREVIOUS ECGS AVAILABLE Confirmed by ROVERTO BELTRE MD ([id number]) on 03/22/2024 12:50:34 PM [facility] 03/18/2024 1:48 PM TARIFF COMPILING CLERK 03/22/2024 12:50 PM TARIFF COMPILING CLERK Caity Ortiz [employer]INTER-COMMUNITY RELATIONS COORDINATOR ECG ORDERABL ES Performing Organization Address City/[facility]/ZIP Co de Phone Number [facility] * PATHOLOGY PERIPHERAL SMEAR REVIEW (03/18/2024 8:33 AM TARIFF COMPILING CLERK) Path Review Confirmed 03/18/2024 2:44 PM TARIFF COMPILING CLERK [facility] Blood BLOOD SPECIMEN / Unknown Lab Venipuncture / Unknown 03/18/2024 8:33 AM TARIFF COMPILING CLERK 03/18/2024 8:46 AM TARIFF COMPILING CLERK Narrative [facility] - 03/18/2024 2:44 PM TARIFF COMPILING CLERK A rare blast seen. Ghanshyam Dewey PA-C LAB - PATHOLOGY/CYTO LOGY ORDERABLES [facility] [address] [place] [address], [facility] [phone] * (ABNORMAL) DIFFERENTIAL MANUAL (03/18/2024 8:33 AM TARIFF COMPILING CLERK) Neutrophil % 24(L) 41 - 74 % 03/18/2024 9:49 AM [facility] Lymphocyte % 71(H) 17 - 47 % 03/18/2024 9:49 AM [facility] Eosinophil % 3 0 - 7 % 03/18/2024 9:49 AM [facility] Basophil % 1 0 - 2 % 03/18/2024 9:49 AM [facility] Other Cells % 1(H) 0% % 03/18/2024 9:49 AM [facility] Comment:Blast-like Neutrophil Absolute 0.22(L) 1.60 - 7.50 x10E9/L 03/18/2024 9:49 AM [facility] Lymphocyte Absolute 0.64(L) 1.00 - 4.40 x10E9/L 03/18/2024 9:49 AM [facility] Eosinophil Absolute 0.03 0.00 - 0.60 x10E9/L 03/18/2024 9:49 AM [facility] Basophil Absolute 0.01 0.00 - 0.13 x10E9/L 03/18/2024 9:49 AM [facility] RBC Morphology REVIEWED 03/18/2024 9:49 AM [facility] Microcytosis MODERATE(A) (none) 03/18/2024 9:49 AM [facility] Ovalocytes MODERATE(A) (none) 03/18/2024 9:49 AM [facility] Schistocytes FEW(A) (none) 03/18/2024 9:49 AM [facility] Giant Platelets PRESENT(A) (none) 9:49 AM [facility] Large Platelets PRESENT(A) (none) 9:49 AM [facility] Blood BLOOD SPECIMEN / Unknown Lab Venipuncture / Unknown 03/18/2024 8:33 AM TARIFF COMPILING CLERK 03/18/2024 8:46 AM [facility] - 03/18/2024 9:49 AM TARIFF COMPILING CLERK A potentially abnormal cell population has been identified. A pathologist review has been ordered. Additional testing may be required to rule out malignancy and/or further classify this cell population. Ghanshyam Dewey PA-C LAB - HEMATOLOGY ORD ERABLES [facility] [address] [place] [address], [facility] [phone] * LDH BLOOD (03/18/2024 8:33 AM TARIFF COMPILING CLERK) LDH Total 146 125 - 243 Units/L 03/18/2024 9:43 AM [facility] Blood BLOOD SPECIMEN / Unknown Lab Venipuncture / Unknown 03/18/2024 8:33 AM TARIFF COMPILING CLERK 03/18/2024 8:47 AM TARIFF COMPILING CLERK Ghanshyam Dewey PA-C LAB - CHEMISTRY ORDE RABLES Performing Organization Address [facility] Co de Phone Number [address] [address], [facility] [phone] * PTT [facility] (03/18/2024 8:33 AM TARIFF COMPILING CLERK) APTT 31.1 23.0 - 38.4 Seconds 03/18/2024 9:08 AM [facility] Comment:Suggested therapeuti c range for full dose I.V. unfractionated heparin therapy for venous 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 is 71 to 109 seconds. Blood BLOOD SPECIMEN / Unknown Lab Venipuncture / Unknown 03/18/2024 8:33 AM TARIFF COMPILING CLERK 03/18/2024 8:35 AM TARIFF COMPILING CLERK Ghanshyam Dewey PA-C LAB - COAGULATION OR DERABLES Performing Organization Address [facility] Co de Phone Number [address] [address], [facility] [phone] * (ABNORMAL) PT-INR [facility] (03/18/2024 8:33 AM TARIFF COMPILING CLERK) PT 15.8(H) 12.1 - 14.8 Seconds 03/18/2024 9:08 AM [facility] INR 1.3 See Comment 03/18/2024 9:08 AM [facility] Comment:The suggested therap eutic range for standard coumadin (warfarin) therapy is an INR of 2.0-3.0. For high-risk patients (Mechanical Mitral Valve Prosthesis, etc.), the suggested prophylactic therapeutic range is an INR of 2.5-3.5. Blood BLOOD SPECIMEN / Unknown Lab Venipuncture / Unknown 03/18/2024 8:33 AM TARIFF COMPILING CLERK 03/18/2024 8:35 AM TARIFF COMPILING CLERK Ghanshyam Dewey PA-C LAB - COAGULATION OR DERABLES Performing Organization Address City/[facility]/ZIP Co de Phone Number [address] [address], [facility] [phone] * URIC ACID BLOOD (03/18/2024 8:33 AM TARIFF COMPILING CLERK) Uric Acid 5.9 3.5 - 7.2 mg/dL 03/18/2024 9:43 AM TARIFF COMPILING CLERK [facility] Blood BLOOD SPECIMEN / Unknown Lab Venipuncture / Unknown 03/18/2024 8:33 AM TARIFF COMPILING CLERK 03/18/2024 8:47 AM TARIFF COMPILING CLERK Ghanshyam Dewey PA-C LAB - CHEMISTRY ORDE JOCELIN Performing Organization Address City/[facility]/ZIP Co de Phone Number [address] [address], [facility] [phone] * PHOSPHORUS BLOOD (03/18/2024 8:33 AM TARIFF COMPILING CLERK) Phosphorus 2.9 2.8 - 5.1 mg/dL 03/18/2024 9:43 AM TARIFF COMPILING CLERK [facility] Blood BLOOD SPECIMEN / Unknown Lab Venipuncture / Unknown 03/18/2024 8:33 AM TARIFF COMPILING CLERK 03/18/2024 8:47 AM TARIFF COMPILING CLERK Ghanshyam Dweey PA-C LAB - CHEMISTRY ORDNatalie MONREAL [address] [address], [facility] [phone] * MAGNESIUM BLOOD (03/18/2024 8:33 AM TARIFF COMPILING CLERK) Magnesium 2.0 1.6 - 2.6 mg/dL 03/18/2024 9:43 AM TARIFF COMPILING CLERK [facility] Blood BLOOD SPECIMEN / Unknown Lab Venipuncture / Unknown 03/18/2024 8:33 AM TARIFF COMPILING CLERK 03/18/2024 8:47 AM TARIFF COMPILING CLERK Ghanshyam Dewey PA-C LAB - CHEMISTRY CHELI MONREAL [facility] [address] [place] [address], [facility] [phone] * (ABNORMAL) COMPREHENSIVE METABOLIC PANEL (03/18/2024 8:33 AM [facility] BUN 13 7 - 26 mg/dL 03/18/2024 9:43 AM [facility] Creatinine 1.30(H) 0.71 - 1.16 mg/dL 03/18/2024 9:43 AM [facility] Sodium 143 136 - 145 mmol/L 03/18/2024 9:43 AM [facility] Potassium 4.2 3.5 - 4.5 mmol/L 03/18/2024 9:43 AM [facility] Chloride 110(H) 98 - 107 mmol/L 03/18/2024 9:43 AM [facility] CO2 23 22 - 29 mmol/L 03/18/2024 9:43 AM [facility] Glucose 115(H) 70 - 99 mg/dL 03/18/2024 9:43 AM [facility] Calcium 9.5 8.4 - 10.2 mg/dL 03/18/2024 9:43 AM [facility] Protein Total 6.7 6.0 - 8.3 g/dL 03/18/2024 9:43 AM [facility] Albumin 3.5 3.4 - 5.0 g/dL 03/18/2024 9:43 AM [facility] Bilirubin Total 0.8 0.2 - 1.2 mg/dL 03/18/2024 9:43 AM [facility] Alkaline Phosphatase 118 40 - 150 U/L 03/18/2024 9:43 AM [facility] ALT 17 5 - 55 U/L 03/18/2024 9:43 AM [facility] AST 12 5 - 34 U/L 03/18/2024 9:43 AM [facility] Anion Gap 10 6 - 16 03/18/2024 9:43 AM [facility] BUN/Creatinine Ratio 10 7 - 23 03/18/2024 9:43 AM [facility] Osmolality Calculated 297(H) 275 - 295 mOsm/kg 03/18/2024 9:43 AM [facility] Albumin/Globulin Ratio 1.1 1.1 - 2.3 03/18/2024 9:43 AM [facility] eGFR by CKD-EPI 56(L) >=90 mL/min/1.7 3 m2 03/18/2024 9:43 AM [facility] Blood BLOOD SPECIMEN / Unknown Lab Venipuncture / Unknown 03/18/2024 8:33 AM TARIFF COMPILING CLERK 03/18/2024 8:47 AM TARIFF COMPILING CLERK Ghanshyam Dewey PA-C LAB - CHEMISTRY ORDE JOCELIN [address] [address], [facility] [phone] * (ABNORMAL) CBC W AUTO DIFFERENTIAL (03/18/2024 8:33 AM [facility] WBC 0.9(LL) 4.0 - 10.7 x10E9/L 03/18/2024 9:49 AM [facility] RBC Count 4.46 4.30 - 5.80 x10E12/L 03/18/2024 9:49 AM [facility] Hemoglobin 12.7(L) 13.3 - 17.5 g/dL 03/18/2024 9:49 AM [facility] Hematocrit 38.9 38.7 - 51.1 % 03/18/2024 9:49 AM [facility] MCV 87.2 80.0 - 98.0 fL 03/18/2024 9:49 AM [facility] MCH 28.5 26.7 - 33.6 pg 03/18/2024 9:49 AM [facility] MCHC 32.6 31.7 - 36.3 g/dL 03/18/2024 9:49 AM [facility] RDW-CV 17.1(H) 11.3 - 14.8 % 03/18/2024 9:49 AM [facility] Platelet Count 89(L) 150 - 420 x10E9/L 03/18/2024 9:49 AM [facility] MPV 12.2(H) 7.8 - 11.4 fL 03/18/2024 9:49 AM [facility] Preliminary Absolute Neutrophil 0.16(L) 1.60 - 7.50 x10E9/L 03/18/2024 9:49 AM [facility] Blood BLOOD SPECIMEN / Unknown Lab Venipuncture / Unknown 03/18/2024 8:33 AM TARIFF COMPILING CLERK 03/18/2024 8:46 AM [facility] Gh[facility]hyam Dewey PA-C LAB - HEMATOLOGY ORD ERABLES [facility] [address] [place] [address], [facility] [phone] * (ABNORMAL) DIFFERENTIAL MANUAL (03/17/2024 5:28 AM [facility]) Neutrophil % 20(L) 41 - 74 % 03/17/2024 6:16 AM [facility] Lymphocyte % 70(H) 17 - 47 % 03/17/2024 6:16 AM [facility] Monocyte % 7 3 - 11 % 03/17/2024 6:16 AM [facility] Eosinophil % 1 0 - 7 % 03/17/2024 6:16 AM [facility] Basophil % 2 0 - 2 % 03/17/2024 6:16 AM [facility] Neutrophil Absolute 0.16(L) 1.60 - 7.50 x10E9/L 03/17/2024 6:16 AM [facility] Lymphocyte Absolute 0.56(L) 1.00 - 4.40 x10E9/L 03/17/2024 6:16 AM [facility] Monocyte Absolute 0.06(L) 0.15 - 1.00 x10E9/L 03/17/2024 6:16 AM [facility] Eosinophil Absolute 0.01 0.00 - 0.60 x10E9/L 03/17/2024 6:16 AM [facility] Basophil Absolute 0.02 0.00 - 0.13 x10E9/L 03/17/2024 6:16 AM [facility] RBC Morphology REVIEWED 03/17/2024 6:16 AM [facility] Microcytosis MODERATE(A) (none) 03/17/2024 6:16 AM [facility] Schistocytes FEW(A) (none) 03/17/2024 6:16 AM [facility] Giant Platelets PRESENT(A) (none) 4 6:16 AM [facility] Large Platelets PRESENT(A) (none) 6:16 AM [facility] Blood BLOOD SPECIMEN / Unknown Venipuncture / Unknown 03/17/2024 5:28 AM TARIFF COMPILING CLERK 03/17/2024 5:45 AM TARIFF COMPILING CLERK Ghanshyam Dewey PA-C LAB - HEMATOLOGY ORD ERABLES Performing Organization Address City/[facility]/ZIP Co de Phone Number [facility] [address] [place] [phone], [facility] [phone] * (ABNORMAL) LDH BLOOD (03/17/2024 5:28 AM TARIFF COMPILING CLERK) LDH Total 122(L) 125 - 243 Units/L 03/17/2024 6:19 AM [facility] Blood BLOOD SPECIMEN / Unknown Venipuncture / Unknown 03/17/2024 5:28 AM TARIFF COMPILING CLERK 03/17/2024 5:45 AM TARIFF COMPILING CLERK Ghanshyam Dewey PA-C LAB - CHEMISTRY ORDE RABNIC [address] [address], [place] [phone] * PTT [facility] (03/17/2024 5:28 AM TARIFF COMPILING CLERK) APTT 31.0 23.0 - 38.4 Seconds 03/17/2024 6:12 AM [facility] Comment:Suggested therapeuti c range for full dose I.V. unfractionated heparin therapy for venous 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 is 71 to 109 seconds. Blood BLOOD SPECIMEN / Unknown Venipuncture / Unknown 03/17/2024 5:28 AM TARIFF COMPILING CLERK 03/17/2024 5:45 AM TARIFF COMPILING CLERK Ghanshyam Dewey PA-C LAB - COAGULATION OR DERABLES [address] [address], [facility] [phone] * (ABNORMAL) PT-INR [facility] (03/17/2024 5:28 AM TARIFF COMPILING CLERK) PT 15.6(H) 12.1 - 14.8 Seconds 03/17/2024 6:12 AM [facility] INR 1.3 See Comment 03/17/2024 6:12 AM [facility] Comment:The suggested therap eutic range for standard coumadin (warfarin) therapy is an INR of 2.0-3.0. For high-risk patients (Mechanical Mitral Valve Prosthesis, etc.), the suggested prophylactic therapeutic range is an INR of 2.5-3.5. Blood BLOOD SPECIMEN / Unknown Venipuncture / Unknown 03/17/2024 5:28 AM TARIFF COMPILING CLERK 03/17/2024 5:45 AM TARIFF COMPILING CLERK Ghanshyam Dewey PA-C LAB - COAGULATION OR DERABLES Performing Organization Address City/[facility]/ZIP Co de Phone Number [address] [address], [facility] [phone] * URIC ACID BLOOD (03/17/2024 5:28 AM TARIFF COMPILING CLERK) Uric Acid 5.9 3.5 - 7.2 mg/dL 03/17/2024 6:23 AM [facility] Blood BLOOD SPECIMEN / Unknown Venipuncture / Unknown 03/17/2024 5:28 AM TARIFF COMPILING CLERK 03/17/2024 5:45 AM TARIFF COMPILING CLERK Ghanshyam Dewey PA-C LAB - CHEMISTRY ORDE RABLES [address] [address], [place] [phone] * (ABNORMAL) PHOSPHORUS BLOOD (03/17/2024 5:28 AM TARIFF COMPILING CLERK) Phosphorus 2.6(L) 2.8 - 5.1 mg/dL 03/17/2024 6:19 AM [facility] Blood BLOOD SPECIMEN / Unknown Venipuncture / Unknown 03/17/2024 5:28 AM TARIFF COMPILING CLERK 03/17/2024 5:45 AM TARIFF COMPILING CLERK Ghanshyam Dewey PA-C LAB - CHEMISTRY CHELI MONREAL [address] [address], [facility] [phone] * MAGNESIUM BLOOD (03/17/2024 5:28 AM TARIFF COMPILING CLERK) Pathologist [facility] Magnesium 2.0 1.6 - 2.6 mg/dL 03/17/2024 6:19 AM [facility] Blood BLOOD SPECIMEN / Unknown Venipuncture / Unknown 03/17/2024 5:28 AM TARIFF COMPILING CLERK 03/17/2024 5:45 AM TARIFF COMPILING CLERK Ghanshyam Dewey PA-C LAB - CHEMISTRY CHELI MONREAL [address] [address], [facility] [phone] * (ABNORMAL) COMPREHENSIVE METABOLIC PANEL (03/17/2024 5:28 AM TARIFF COMPILING CLERK) Pathologist [facility] BUN 17 7 - 26 mg/dL 03/17/2024 6:19 AM [facility] Creatinine 1.33(H) 0.71 - 1.16 mg/dL 03/17/2024 6:19 AM [facility] Sodium 140 136 - 145 mmol/L 03/17/2024 6:19 AM [facility] Potassium 4.1 3.5 - 4.5 mmol/L 03/17/2024 6:19 AM [facility] Chloride 109(H) 98 - 107 mmol/L 03/17/2024 6:19 AM [facility] CO2 23 22 - 29 mmol/L 03/17/2024 6:19 AM [facility] Glucose 114(H) 70 - 99 mg/dL 03/17/2024 6:19 AM [facility] Calcium 8.8 8.4 - 10.2 mg/dL 03/17/2024 6:19 AM [facility] Protein Total 6.0 6.0 - 8.3 g/dL 03/17/2024 6:19 AM [facility] Albumin 3.2(L) 3.4 - 5.0 g/dL 03/17/2024 6:19 AM [facility] Bilirubin Total 0.5 0.2 - 1.2 mg/dL 03/17/2024 6:19 AM [facility] Alkaline Phosphatase 112 40 - 150 U/L 03/17/2024 6:19 AM [facility] ALT 17 5 - 55 U/L 03/17/2024 6:19 AM [facility] AST 14 5 - 34 U/L 03/17/2024 6:19 AM [facility] Anion Gap 8 6 - 16 03/17/2024 6:19 AM [facility] BUN/Creatinine Ratio 13 7 - 23 03/17/2024 6:19 AM [facility] Osmolality Calculated 292 275 - 295 mOsm/kg 03/17/2024 6:19 AM [facility] Albumin/Globulin Ratio 1.1 1.1 - 2.3 03/17/2024 6:19 AM [facility] eGFR by CKD-EPI 54(L) >=90 mL/min/1.7 3 m2 03/17/2024 6:19 AM [facility] Blood BLOOD SPECIMEN / Unknown Venipuncture / Unknown 03/17/2024 5:28 AM TARIFF COMPILING CLERK 03/17/2024 5:45 AM [facility] Gh[facility]hyam Dewey PA-C LAB - CHEMISTRY ORDE JOCELIN [facility] [address] [place] [phone], [facility] [phone] * (ABNORMAL) CBC W AUTO DIFFERENTIAL (03/17/2024 5:28 AM TARIFF COMPILING CLERK) WBC 0.8(LL) 4.0 - 10.7 x10E9/L 03/17/2024 6:33 AM [facility] RBC Count 3.89(L) 4.30 - 5.80 x10E12/L 03/17/2024 6:33 AM [facility] Hemoglobin 11.1(L) 13.3 - 17.5 g/dL 03/17/2024 6:33 AM [facility] Hematocrit 33.6(L) 38.7 - 51.1 % 03/17/2024 6:33 AM [facility] MCV 86.4 80.0 - 98.0 fL 03/17/2024 6:33 AM [facility] MCH 28.5 26.7 - 33.6 pg 03/17/2024 6:33 AM [facility] MCHC 33.0 31.7 - 36.3 g/dL 03/17/2024 6:33 AM [facility] RDW-CV 16.9(H) 11.3 - 14.8 % 03/17/2024 6:33 AM [facility] Platelet Count 83(L) 150 - 420 x10E9/L 03/17/2024 6:33 AM [facility] MPV 12.0(H) 7.8 - 11.4 fL 03/17/2024 6:33 AM [facility] Preliminary Absolute Neutrophil 0.14(L) 1.60 - 7.50 x10E9/L 03/17/2024 6:33 AM [facility] Blood BLOOD SPECIMEN / Unknown Venipuncture / Unknown 03/17/2024 5:28 AM [employer] COMP[employer]ING CLERK 03/17/2024 5:45 AM [facility] Gh[facility] Dewey PA-C LAB - HEMATOLOGY ORD ERABLES [facility] [address] [place] [id number], [facility] [phone] * (ABNORMAL) DIFFERENTIAL MANUAL (03/16/2024 12:04 AM [facility] Neutrophil % 11(L) 41 - 74 % 03/16/2024 1:45 AM [facility] Lymphocyte % 79(H) 17 - 47 % 03/16/2024 1:45 AM [facility] Monocyte % 7 3 - 11 % 03/16/2024 1:45 AM [facility] Eosinophil % 2 0 - 7 % 03/16/2024 1:45 AM [facility] Basophil % 1 0 - 2 % 03/16/2024 1:45 AM [facility] Neutrophil Absolute 0.09(L) 1.60 - 7.50 x10E9/L 03/16/2024 1:45 AM [facility] Lymphocyte Absolute 0.63(L) 1.00 - 4.40 x10E9/L 03/16/2024 1:45 AM [facility] Monocyte Absolute 0.06(L) 0.15 - 1.00 x10E9/L 03/16/2024 1:45 AM [facility] Eosinophil Absolute 0.02 0.00 - 0.60 x10E9/L 03/16/2024 1:45 AM [facility] Basophil Absolute 0.01 0.00 - 0.13 x10E9/L 03/16/2024 1:45 AM [facility] RBC Morphology REVIEWED 03/16/2024 1:45 AM [facility] Dimorphic RBC Population PRESENT(A) (none) 03/16/2024 1:45 AM [facility] Microcytosis MODERATE(A) (none) 03/16/2024 1:45 AM [facility] Giant Platelets PRESENT(A) (none) 1:45 AM [facility] Blood BLOOD SPECIMEN / Unknown Venipuncture / Unknown 03/16/2024 12:04 AM [employer] COMPILING CLERK 03/16/2024 12:37 AM [facility] Gh[facility]wey PA-C LAB - HEMATOLOGY ORD ERABLES [facility] [address] [place] [phone], [facility] [phone] * LDH BLOOD (03/16/2024 12:04 AM TARIFF COMPILING CLERK) LDH Total 157 125 - 243 Units/L 03/16/2024 1:04 AM [facility] Blood BLOOD SPECIMEN / Unknown Venipuncture / Unknown 03/16/2024 12:04 AM [employer] COMPILING CLERK 03/16/2024 12:36 AM [employer] COMPILING CLERK Ghanshyam Dewey PA-C LAB - CHEMISTRY ELIE JOCELIN Performing Organization Address [facility]/ZIP Co de Phone Number [address] [phone], [facility] [phone] * PTT [facility] (03/16/2024 12:04 AM TARIFF COMPILING CLERK) APTT 29.1 23.0 - 38.4 Seconds 03/16/2024 1:05 AM [facility] Comment:Suggested therapeuti c range for full dose I.V. unfractionated heparin therapy for venous 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 is 71 to 109 seconds. Blood BLOOD SPECIMEN / Unknown Venipuncture / Unknown 03/16/2024 12:04 AM [employer] COMPILING CLERK 03/16/2024 12:37 AM [employer] COMPILING CLERK Ghanshyam Dewey PA-C LAB - COAGULATION OR DERABLES Performing Organization Address [facility] Co de Phone Number [address] [phone], [facility] [phone] * (ABNORMAL) PT-INR [facility] (03/16/2024 12:04 AM TARIFF COMPILING CLERK) PT 15.3(H) 12.1 - 14.8 Seconds 03/16/2024 1:05 AM [facility] INR 1.2 See Comment 03/16/2024 1:05 AM [facility] Comment:The suggested therap eutic range for standard coumadin (warfarin) therapy is an INR of 2.0-3.0. For high-risk patients (Mechanical Mitral Valve Prosthesis, etc.), the suggested prophylactic therapeutic range is an INR of 2.5-3.5. Blood BLOOD SPECIMEN / Unknown Venipuncture / Unknown 03/16/2024 12:04 AM TARIFF COMPILING CLERK 03/16/2024 12:37 AM [employer] COMPILING CLERK Ghanshyam Dewey PA-C LAB - COAGULATION OR DERABLES Performing Organization Address City/[facility]/ZIP Co de Phone Number [address] [address], [place] [phone] * URIC ACID BLOOD (03/16/2024 12:04 AM TARIFF COMPILING CLERK) Uric Acid 6.0 3.5 - 7.2 mg/dL 03/16/2024 1:04 AM TARIFF COMPILING CLERK [facility] Blood BLOOD SPECIMEN / Unknown Venipuncture / Unknown 03/16/2024 12:04 AM TARIFF COMPILING CLERK 03/16/2024 12:36 AM TARIFF COMPILING CLERK Ghanshyam Dewey PA-C LAB - CHEMISTRY CHELI MONREAL Performing Organization Address [facility]/ZIP Co de Phone Number [address] [address], [place] [phone] * PHOSPHORUS BLOOD (03/16/2024 12:04 AM TARIFF COMPILING CLERK) Phosphorus 3.5 2.8 - 5.1 mg/dL 03/16/2024 1:04 AM TARIFF COMPILING CLERK [facility] Blood BLOOD SPECIMEN / Unknown Venipuncture / Unknown 03/16/2024 12:04 AM TARIFF COMPILING CLERK 03/16/2024 12:36 AM TARIFF COMPILING CLERK Ghanshyam Dewey PA-C LAB - CHEMISTRY CHELI MONREAL Performing Organization Address [facility]/ZIP Co de Phone Number [address] [address], [place] [phone] * MAGNESIUM BLOOD (03/16/2024 12:04 AM TARIFF COMPILING CLERK) Magnesium 2.1 1.6 - 2.6 mg/dL 03/16/2024 1:04 AM TARIFF COMPILING CLERK [facility] Blood BLOOD SPECIMEN / Unknown Venipuncture / Unknown 03/16/2024 12:04 AM TARIFF COMPILING CLERK 03/16/2024 12:36 AM TARIFF COMPILING CLERK Ghanshyam Dewey PA-C LAB - CHEMISTRY CHELI MONREAL [id number] [place] [address], [facility] [phone] * (ABNORMAL) COMPREHENSIVE METABOLIC PANEL (03/16/2024 12:04 AM [facility] BUN 15 7 - 26 mg/dL 03/16/2024 1:04 AM [facility] Creatinine 1.31(H) 0.71 - 1.16 mg/dL 03/16/2024 1:04 AM [facility] Sodium 141 136 - 145 mmol/L 03/16/2024 1:04 AM [facility] Potassium 4.2 3.5 - 4.5 mmol/L 03/16/2024 1:04 AM [facility] Chloride 111(H) 98 - 107 mmol/L 03/16/2024 1:04 AM [facility] CO2 22 22 - 29 mmol/L 03/16/2024 1:04 AM [facility] Glucose 113(H) 70 - 99 mg/dL 03/16/2024 1:04 AM [facility] Calcium 8.9 8.4 - 10.2 mg/dL 03/16/2024 1:04 AM [facility] Protein Total 6.3 6.0 - 8.3 g/dL 03/16/2024 1:04 AM [facility] Albumin 3.4 3.4 - 5.0 g/dL 03/16/2024 1:04 AM [facility] Bilirubin Total 0.5 0.2 - 1.2 mg/dL 03/16/2024 1:04 AM [facility] Alkaline Phosphatase 107 40 - 150 U/L 03/16/2024 1:04 AM [facility] ALT 16 5 - 55 U/L 03/16/2024 1:04 AM [facility] AST 15 5 - 34 U/L 03/16/2024 1:04 AM [facility] Anion Gap 8 6 - 16 03/16/2024 1:04 AM [facility] BUN/Creatinine Ratio 11 7 - 23 03/16/2024 1:04 AM [facility] Osmolality Calculated 294 275 - 295 mOsm/kg 03/16/2024 1:04 AM [facility] Albumin/Globulin Ratio 1.2 1.1 - 2.3 03/16/2024 1:04 AM [facility] eGFR by CKD-EPI 55(L) >=90 mL/min/1.7 3 m2 03/16/2024 1:04 AM [facility] Blood BLOOD SPECIMEN / Unknown Venipuncture / Unknown 03/16/2024 12:04 AM TARIFF COMPILING CLERK 03/16/2024 12:36 AM TARIFF COMPILING CLERK Ghanshyam Dewey PA-C LAB - CHEMISTRY ELIE JOCELIN [facility] [address] [place] [address], [facility] [phone] * (ABNORMAL) CBC W AUTO DIFFERENTIAL (03/16/2024 12:04 AM [facility] WBC 0.8(LL) 4.0 - 10.7 x10E9/L 03/16/2024 1:49 AM [facility] RBC Count 4.00(L) 4.30 - 5.80 x10E12/L 03/16/2024 1:49 AM [facility] Hemoglobin 11.3(L) 13.3 - 17.5 g/dL 03/16/2024 1:49 AM [facility] Hematocrit 34.7(L) 38.7 - 51.1 % 03/16/2024 1:49 AM [facility] MCV 86.8 80.0 - 98.0 fL 03/16/2024 1:49 AM [facility] MCH 28.3 26.7 - 33.6 pg 03/16/2024 1:49 AM [facility] MCHC 32.6 31.7 - 36.3 g/dL 03/16/2024 1:49 AM [facility] RDW-CV 16.9(H) 11.3 - 14.8 % 03/16/2024 1:49 AM [facility] Platelet Count 86(L) 150 - 420 x10E9/L 03/16/2024 1:49 AM [facility] MPV 11.6(H) 7.8 - 11.4 fL 03/16/2024 1:49 AM TARIFF COMPILING CLERK [facility] Preliminary Absolute Neutrophil 0.08(L) 1.60 - 7.50 x10E9/L 03/16/2024 1:49 AM TARIFF COMPILING CLERK [facility] Blood BLOOD SPECIMEN / Unknown Venipuncture / Unknown 03/16/2024 12:04 AM TARIFF COMPILING CLERK 03/16/2024 12:37 AM TARIFF COMPILING CLERK Ghanshyam Dewey PA-C LAB - HEMATOLOGY ORD ERABLES [facility] [address] [place] [address], [facility] [phone] * ECHO COMPLETE W CONTRAST (03/15/2024 1:47 PM TARIFF COMPILING CLERK) IVSd 2D 1.314 cm SSM CV FUJ [...] Region Laterality Modality Ultrasound 03/15/2024 2:04 PM TARIFF COMPILING CLERK Narrative 03/15/2024 5:17 PM TARIFF COMPILING CLERK Summary ??* The left ventricle is [...] 1945 Gender: ? Male Accession #: ? [id number] Ht: ? 72 in Wt: ? 218 lb BSA: ? 2.26 m2 HR: ? 65 bpm BP: ? 103 / ? 55 mmHg Exam Date: ? 03/15/2024 2:04 PM Patient Status: ? I/P Study Site: ? [facility] Primary Location: ? [facility] EStudy Info Technical Quality: ? Adequate Exam [...] ? Ted Soler Fellow: ? Josh Knight Executive Vice President And Chief Operating Officer: ? Dhruv Sorto Left Ventricle ??Left ventricular [...] Status: I/P Study Site: [facility] Primary Location: [facility] Info Technical Quality: Adequate Exam Type: ECHO [...] Attending Physician: Ted Soler Fellow: Josh Knight Executive Vice President And Chief Operating Officer: Dhruv Sorto Left Ventricle Left ventricular systolic [...] cm2 AV DI (VTI) 1.08 AV DI (Alwanda) 0.94 AV Regurgitation 2D LVOT Area 3.42 [...] MISC TEST (NOT BLOOD) (03/15/2024 9:05 AM TARIFF COMPILING CLERK) Test Name [facility] 03/21/2024 12:06 PM TARIFF COMPILING CLERK [facility] REF LAB NON INTERF Test Result See Scanned Report 03/21/2024 12:06 PM TARIFF COMPILING CLERK [facility] REF LAB NON INTERF Comment Ref Lab 03/21/2024 12:06 PM TARIFF COMPILING CLERK [facility] REF LAB NON INTERF Other BONE MARROW SPECIMEN / Unknown Collection / Unknown 03/15/2024 9:05 AM TARIFF COMPILING CLERK 03/15/2024 9:30 AM [facility] Rodo Perez MD LAB - BODY FLU ID ORDERABLES [facility] REF LAB NON INTERF [address] [place] [address], [facility] [phone] * LAB MISC TEST (NOT BLOOD) (03/15/2024 9:05 AM TARIFF COMPILING CLERK) Test Name [facility] 03/21/2024 12:07 PM TARIFF COMPILING CLERK [facility] REF LAB NON INTERF Test Result See Scanned Report 03/21/2024 12:07 PM TARIFF COMPILING CLERK [facility] REF LAB NON INTERF Comment Ref Lab 03/21/2024 12:07 PM TARIFF COMPILING CLERK [facility] REF LAB NON INTERF Other BONE MARROW SPECIMEN / Unknown Collection / Unknown 03/15/2024 9:05 AM TARIFF COMPILING CLERK 03/15/2024 9:30 AM TARIFF COMPILING CLERK Rodo Perez MD LAB - BODY FLU ID ORDERABLES Performing Organization Address City/[facility] Co de Phone Number [facility] REF LAB NON INTERF [address] [place] [address], [facility] [phone] * LAB MISC TEST (NOT BLOOD) (03/15/2024 9:05 AM TARIFF COMPILING CLERK) Test Name NPM1 03/21/2024 12:07 PM TARIFF COMPILING CLERK [facility] REF LAB NON INTERF Test Result See Scanned Report 03/21/2024 12:07 PM TARIFF COMPILING CLERK [facility] REF LAB NON INTERF Comment Ref Lab 03/21/2024 12:07 PM TARIFF COMPILING CLERK [facility] REF LAB NON INTERF Other BONE MARROW SPECIMEN / Unknown Collection / Unknown 03/15/2024 9:05 AM TARIFF COMPILING CLERK 03/15/2024 9:30 AM TARIFF COMPILING CLERK Rodo Perez MD LAB - BODY FLU ID ORDERABLES Performing Organization Address [facility] Co de Phone Number [facility] REF LAB NON INTERF [address] [place] [address], [place] [phone] * MYELOID MALIGNANCIES MUTATION PNL (03/15/2024 9:05 AM TARIFF COMPILING CLERK) Interpretation Myeloid Malignancy PNL See Note 03/28/2024 2:06 PM TARIFF COMPILING CLERK [employer] ([facility]) Comment: Myeloid Malignancies Mutation Panel NGS Submitted diagnosis or diagnosis under consideration for variant interpretation: Myelodysplastic syndrome, unspecified Note: Prior NGS testing performed on this patient (most recent [employer] accession [id number]) was reviewed in conjunction with the current case to compare molecular variants reported. The previously reported molecular variants DNMT3A, IDH1, and CUX1 are again detected in the current study. In addition, new molecular variants in STAG2, BCOR, JAK2, and CEBPA are now detected. TIER 1: Variants of Known Clinical Significance in Hematologic Malignancies 1. IDH1 c.394C>A, p.Qji208Dtp ([id number]) VAF: 38.4% IDH1 encodes an enzyme that catalyzes the conversion of isocitrate to alpha-ketoglutarate in the citric acid cycle (23). Somatic mutations of IDH1 are found in 4-12% of patients with myelodysplastic syndrome (MDS).This mutation has been reported in hematologic malignancies (4). The prognostic significance of mutated IDH1 in MDS is uncertain (20) (27) (7) (14) (19) (32). 2. DNMT3A c.2206C>T, p.Hud243Vgn ([id number]) VAF: 42.2% DNMT3A encodes a DNA [...] stem cell transplantation (2). 3. DNMT3A c.2407A>G, p.Ary004Efk ([id number]) VAF: 38.8% This mutation has also been reported in hematologic malignancies (4). 4. JAK2 c.1849G>T, p.Hjm783Nhd (NM_[id number]) VAF: 14.4% JAK2 encodes a non-receptor protein tyrosine kinase that regulates STAT can filling machine operator factors in response to cytokine receptor signaling (13). JAK2 mutations have been reported in 3-6% of patients with MDS (6) (15) (31). This JAK2 mutation (p.Kuv198Kfo) has also been reported in approximately 10-25% of patients with myelodysplastic/myeloproliferative neoplasms (MDS/MPN) (31) (21). This particular JAK2 mutation occurs in the pseudokinase (JH2) domain and leads to activation of the NOLAN-STAT pathway signaling. The prognostic significance of JAK2 mutations in MDS is unclear (6). 5. STAG2 c.1840C>T, p.Qdq083* (NM_[id number]) VAF: 31.7% STAG2 encodes a subunit [...] unmutated cohesin genes (29). 6. BCOR c.3649C>T, p.Xgw5887* ([id number]) VAF: 9.6% BCOR encodes a transcriptional corepressor that interacts with BCL-6 and histone deacetylases (HDACs) (5) (12). Mutations in BCOR are seen in 4% of patients with MDS (5) (11). BCOR mutations in MDS are often frameshift and nonsense mutations that result in ebdu-od-wwxxuzni (5) (11). This mutation is predicted to alter the normal function of BCOR. BCOR mutations are associated with a higher incidence of AML transformation in MDS patients and shorter overall survival in MDS patients (5) (11) (16). 7. BCOR c.635_638del, p.Qge242Qorok*3 ([id number]) VAF: 6.2% This mutation is also predicted to alter the normal function of BCOR. TIER 2: Variants of Unknown Clinical Significance in Hematologic Malignancies 1. CEBPA c.1074_*9del, p.*359Cysext*58 (NM_[id number]) VAF: 4.7% CEBPA encodes a protein that is a member of the basic region leucine zipper family of can filling machine operator factors (18). Somatic mutations of CEBPA [...] if any, is uncertain. 2. CUX1 c.3085G>A, p.Kip4517Cwe (NM_[id number]) VAF: 44.8% This variant has been rarely reported in hematologic malignancies (1) (10), to the best of our knowledge. References 1: Lynnette P, ??Emmanuelle Kim, ??Zhanna CLARK et al, Assessment of Minimal Residual Disease by Next Generation Sequencing in Peripheral Blood as a Complementary Tool for Personalized Transplant Monitoring in Myeloid Neoplasms. J Clin Med 2020. PMID:14277585 2: Virginie R, ??Juan HERNANDEZ, ??Ulises Kim et al, Somatic mutations predict poor outcome in patients with myelodysplastic syndrome after hematopoietic stem-cell transplantation. J Clin Oncol 2014. PMID:20693206 3: cBioPortal: http://www.cbioportal.org/ 4: COSMIC: https://cancer.vipin.ac.uk/cosmic 5: Braulio F, ??Yu V, ??Camilla Y et al, BCOR and BCORL1 mutations in myelodysplastic syndromes and related disorders. Blood 2013. PMID:93463892 6: Bill M, ??Jennifer C, ??Víctor Stroud et al, JAK2 Mutations Are Rare and Diverse in Myelodysplastic Syndromes: Case Series and Review of the Literature. Hematol Rep 2022. PMID:00730004 7: Jahaira CD, ??Kamla E, ??Mary Mason et al, IDH1 and IDH2 mutations in myelodysplastic syndromes and role in disease progression. Leukemia 2016. PMID:[id number] 8: Fried I, ??Day C, ??Lenin MURPHY et al, Frequency, onset and clinical impact of somatic DNMT3A mutations in therapy-related and secondary acute myeloid leukemia. Haematologica 2012. PMID:13732632 9: Nuha O, ??Idania D, ??Luanne Payne et al, CEBPA polymorphisms and mutations in patients with acute myeloid leukemia, myelodysplastic syndrome, multiple myeloma and non-Hodgkin's lymphoma. Blood Cells Mol Dis 2008. PMID:35418667 10: Cassandra Kim, ??Cornell Payne, ??Alexis Valdivia et al, DNA methylation epitypes highlight underlying developmental and disease pathways in acute myeloid leukemia. Genome Res 2020. PMID:75949645 11: Ivan V, ??Jenna E, ??Alondra DEMPSEY et al, Whole-exome sequencing identifies somatic mutations of BCOR in acute myeloid leukemia with normal karyotype. Blood 2011. PMID:68847348 12: Lin RUEDA, ??Yashira W, ??Darcie Paz al, BCoR, a novel corepressor involved in BCL-6 repression. Genes Dev 2000. PMID:24916846 13: Fabian SS, ??Jen SJ, ??Amandeep LR et al, Nolan/STAT pathways in cytokine signaling and myeloproliferative disorders: approaches for targeted therapies. Genes Cancer 2010. PMID:81752846 14: Jose J O, ??Charity V, ??Grayson Stroud et al, Mutations of IDH1 and IDH2 genes in early and accelerated phases of myelodysplastic syndromes and MDS/myeloproliferative neoplasms. Leukemia 2010. PMID:64432125 15: Megkervinorfer M, ??Catherine C, ??Ahsan Talavera et al, Molecular analysis of myelodysplastic syndrome with isolated deletion of the long arm of chromosome 5 reveals a specific spectrum of molecular mutations with prognostic impact: a study on 123 patients and 27 genes. Haematologica 2017. PMID:56961896 16: Gregoria BAR, ??Meliton T, ??Valerie M et al, Spectrum and prognostic relevance of helper driver gene mutations in acute myeloid leukemia. Blood 2016. 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 Bharti Emely 2001. 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 Clin Cancer Res 2009. PMID:08151761 19: Nargis E, ??Jose M, ??Hugh Stroud et al, Clinical and biological implications of helper driver mutations in myelodysplastic syndromes. Blood 2013. PMID:[id number] 20: Eileen MURPHY, ??Rajinder CHRISTY, ??Juju OTERO et al, Differential prognostic effect of IDH1 versus IDH2 mutations in myelodysplastic syndromes: a [facility] study of 277 patients. Leukemia 2012. PMID:[id number] 21: Eileen MURPHY, George TL, Genomics of myelodysplastic syndrome/myeloproliferative neoplasm overlap syndromes. Hematology Am Soc Hematol Educ Program 2020. PMID:31400929 22: Marty C, ??Malika C, ??Heather Flower et al, Favorable prognostic significance of CEBPA mutations in patients with de elinor acute myeloid leukemia: a study from the Acute Leukemia [employer] (JOSE). Blood 2002. PMID:36519009 23: Bulmaro BENTON, Josse H, Isocitrate dehydrogenase 1 and 2 mutations in cancer: alterations at a crossroads of cellular metabolism. J Natl Cancer Inst 2010. PMID:41316806 24: Jose A, ??Ivan V, ??Yudi U et al, [place] analysis of DNMT3A mutations in hematological malignancies. Leukemia 2013. PMID:[id number] 25: Kim , ??Lisa-Hussein O, ??Arnulfo REINOSO et al, The role of mutations in epigenetic regulators in myeloid malignancies. Bharti Rev Cancer 2012. PMID:63993074 26: Taube F, ??Hubert ISSA, ??Efrem Payne et al, CEBPA mutations in 4708 patients with acute myeloid leukemia: differential impact of bZIP and TAD mutations on outcome. Blood 2021. PMID:08915775 27: Thol F, ??Roverto EM, ??Sam Lynn et al, IDH1 mutations in patients with myelodysplastic syndromes are associated with an unfavorable prognosis. Haematologica 2010. PMID:08366595 28: Thol F, ??Lisa C, ??Bro Valdivia et al, Rare occurrence of DNMT3A mutations in myelodysplastic syndromes. Haematologica 2011. PMID:[id number] 29: Joesy S, ??Liam SAAB, ??Joan H et al, Genetic alterations of the cohesin complex genes in myeloid malignancies. Blood 2014. PMID:[id number] 30: Barrett MERRITT, ??Tono Stroud, ??Jossue Amador et al, Recurrent DNMT3A mutations in patients with myelodysplastic syndromes. Leukemia 2011. PMID:[id number] 31: Lawrence Z, Juan Diego B, Comparison and Implications of Mutational Profiles of Myelodysplastic Syndromes, Myeloproliferative Neoplasms, and Myelodysplastic/Myeloproliferative Neoplasms: A Muse-Analysis. Front Oncol 2020. PMID:[id number] 32: Cornell N, ??Cornell F, ??Yuval N et al, IDH1 Mutation Is an Independent Inferior Prognostic Indicator for Patients with Myelodysplastic Syndromes. Acta Haematol 2017. PMID:[id number] 33: Ochoa L, Gabriella R, Hieu ALBERTS, DNMT3A in haematological malignancies. Bharti Rev Cancer 2015. PMID:25461075 This result has been reviewed and approved by Jannette Dutta M.D. Low coverage regions: Listed below are regions where the average sequencing depth (number of times a particular nucleotide is sequenced) in at least 20% of the kintnk-as-lmosfogd is less than our stringent cutoff of [...] NOTCH1; NPM1*; NRAS; NSD1; PHF6; PIGA; PPM1D; JJPO72K; PRPF8; PTPN11; RAD21; RUNX1; SAMD9; SAMD9L; SETBP1; [...] developed and its performance characteristics determined by [employer]. It has not been cleared or approved by the U.S. Food and Drug Administration. This test was performed in a CLIA-certified laboratory and is intended for clinical purposes. Myeloid Malignancy Dx Mds Unspec 03/28/2024 2:06 PM [facility] [employer] ([facility]) Myeloid Malignancy Panel Specimen Bone Marrow 03/28/2024 2:06 PM [facility] [employer] [facility]) EER Myeloid Malignancy See Note 03/28/2024 2:06 PM [facility] [employer] [facility]) Comment: Authorized individuals can access the Gone! Enhanced Report using the following link: [email or web address] Performed By: [facility] [address] [place] [address] Manager Psychiatry: Uche Morley MD, PhD CLIA Number: [id number] Other BONE MARROW SPECIMEN / Unknown Collection / Unknown 03/15/2024 9:05 AM TARIFF COMPILING CLERK 03/15/2024 9:30 AM TARIFF COMPILING CLERK Rodo Perez MD LAB - PATHOLOG Y/CYTOLOGY ORDERABLES [facility] [employer] [facility]) [address] [place] [address], [facility] * FISH MDS PANEL BLOOD OR BONE MARROW (03/15/2024 9:05 AM TARIFF COMPILING CLERK) MDS Panel by Fish See Note Normal 024 11:26 AM TARIFF COMPILING CLERK [facility] ([facility]) Comment: Test Performed: Myelodysplastic Syndrome (MDS) Panel by FISH (FISH MDS P) Specimen Type: Bone Marrow Indication for Testing: Myelodysplastic syndrome, unspecified RESULT Normal FISH Result Deletion 5q: ??not detected Monosomy 7: ??not detected Deletion 7q: ??not detected Trisomy 8: ??not detected Deletion 20q: ??not detected INTERPRETATION There was no evidence of deletion 5q31, monosomy 7, deletion 7q31, trisomy 8, or deletion 39e22-g17.1. This analysis was performed with the MDS panel probes D5S23/EGR1, D7Z1/O3K697, CEP8 ([employer]), and Del(20q) ([employer]). A total of 200 cells were scored for each probe. Cytogenomic Nomenclature (ISCN): nuc nereyda(D5S23,EGR1,D7Z1,O1X871,D8Z2,F71W988,MYBL2)x2[200' This result has been reviewed and approved by Nabila Gonzalez, PhD, FACMG A portion of this analysis was performed at the following location(s): [facility] [employer] [facility] CG-[place]#2 INTERPRETIVE INFORMATION: MDS Panel by FISH This test was developed and its performance characteristics determined by [facility]. It has not been cleared or approved by the US Food and Drug Administration. This test was performed in a CLIA certified laboratory and is intended for clinical purposes. EER MDS Fish Panel See Note 2023 11:26 AM TARIFF COMPILING CLERK [facility] [employer] ([facility]) Comment: Authorized individuals can access the VTSTinser Enhanced Report using the following link: [email or web address] Performed By: [facility] [address] [place] [address] Manager Psychiatry: Uche Morley MD, PhD CLIA Number: [id number] Other BONE MARROW SPECIMEN / Unknown Collection / Unknown 03/15/2024 9:05 AM TARIFF COMPILING CLERK 03/15/2024 9:30 AM TARIFF COMPILING CLERK Rodo Perez MD LAB - PATHOLOG Y/CYTOLOGY ORDERABLES [facility] [employer] ([facility]) [address] * FISH AML PANEL BLOOD OR BM RFLX PML/DANTE (03/15/2024 9:05 AM TARIFF COMPILING CLERK) [facility] FISH AML Panel See Note Normal 03/25/2024 10:34 AM TARIFF COMPILING CLERK [facility] [employer] ([facility]) Comment: Test Performed: Acute Myeloid Leukemia Panel by FISH (FISHAML) Specimen Type: Bone Marrow Indication for Testing: Myelodysplastic syndrome, unspecified RESULT Normal FISH Result inv(3) or t(3;3) GATA2::MECOM Fusion: ??not detected Deletion 5q: ??not detected Monosomy 7: ??not detected Deletion 7q: ??not detected t(8;21) RUNX1::YAWV1U7 Fusion: ??not detected 11p15 (NUP98) Rearrangement: ??not detected 11q23 (KMT2A) Rearrangement: ??not detected inv(16) or t(16;16) CBFB::MYH11 Fusion: ??not detected INTERPRETATION There was no evidence of GATA2::MECOM (also known as RPN1-EVI1) fusion due to 3q21/3q26.2 inversion or translocation, deletion 5q31, monosomy 7, deletion 7q31, RUNX1::UUXE3I3 fusion due to translocation (8;21)(q21.3;q22), 11p15 (NUP98) rearrangement, 11q23 KMT2A (MLL) rearrangement, or CBFB::MYH11 fusion due to either 16p13.1/16q22 inversion or translocation. This analysis was performed with the AML panel probes RPN1/MECOM, D5S23/EGR1, D7Z1/I0L164, RUNX1/BHBZ1E8 ([employer]), NUP98 and CBFB-MYH11 ([employer]), and MLL (KMT2A) ([employer]). A total of 200 cells were scored for each probe. Cytogenomic Nomenclature (ISCN): nuc nereyda(RPN1,MECOM,D5S23,EGR1,D7Z1,U8C793,HVHR3H3,NUP98,KMT2A,MYH11,CBF B,RUNX1)x2[200' This result has been reviewed and approved by Mundo Mejia, PhD, [facility] [place] A portion of this analysis was performed at the following location(s): [facility] Site CG-CO#1 INTERPRETIVE INFORMATION: AML Panel by FISH This test was developed and its performance characteristics determined by [employer]. It has not been cleared or approved by the US Food and Drug Administration. This test was performed in a CLIA certified laboratory and is intended for clinical purposes. EER AML Panel by FISH See Note 03/25/2024 10:34 AM TARIFF COMPILING CLERK [employer] ([facility]) Comment: Authorized individuals can access the Gone! Enhanced Report using the following link: [email or web address] Performed By: [employer] [address] [place] [address] Manager Psychiatry: Uche Morley MD, PhD CLIA Number: [id number] Other BONE MARROW SPECIMEN / Unknown Collection / Unknown 03/15/2024 9:05 AM TARIFF COMPILING CLERK 03/15/2024 9:30 AM TARIFF COMPILING CLERK Rodo Perez MD LAB - PATHOLOG Y/CYTOLOGY ORDERABLES [facility] [employer] ([facility]) [address] [place] [address], [facility] * FLOW CYTOMETRY BONE MARROW (03/15/2024 9:05 AM TARIFF COMPILING CLERK) Case Report Flow Cytometry ?Case: [id number] ? Authorizing Provider: ??Rodo Perez, ?? Collected: ? 03/15/2024 09:05 AM ? MD ? Ordering Location: ? [facility] ACUTE ? Received: ?03/15/2024 09:30 AM ? Pathologist: ? Angeles Rosado MD ? Specimen: ?Bone Marrow ? 03/15/2024 2:40 PM [facility] Final Diagnosis Bone marrow, flow cytometric immunophenotypic analysis: - Paucicellular specimen with increased myeloblasts detected (42.4% of events) - See interpretation 03/15/2024 2:40 PM [facility] Flow Cytometry Interpretation Viability: 92%, [...] flow cytometry specimen has been reviewed for chemistry quality control analyst purposes. Correlation with the concurrent bone marrow biopsy ([id number]) is required. 03/15/2024 2:40 PM [facility] Flow Cytometry Results Differential Result Comment Flow Cell Count /uL 980 Total Viability % 92.0 Lymphocytes % 13 Dim CD45 Region % 55 Monocytes % 2 Granulocytes % 28 03/15/2024 2:40 PM [facility] Reason for test MDS (myelodysplastic syndrome) (HCC) 238.75 03/15/2024 2:40 PM [facility] Client Specimen ID # [id number] 03/15/2024 2:40 PM [facility] Number of markers 24 were performed. A-2 Flow CD10 A-3 Flow CD13 A-5 Flow CD20 A-11 Flow CD2 A-13 Flow CD14 A-16 Flow CD117 A-17 Flow CD11b A-18 Flow CD11c A-1 Flow CD5 A-4 Flow CD19 A-6 Flow CD33 A-7 Flow CD34 A-8 Flow CD45 A-12 Flow CD7 A-14 Flow CD56 A-15 Flow CD64 A-23 cyCD22 A-24 vvRI83d A-9 Darwin+CD19+ A-10 Lambda+CD19+ A-19 Flow HLA-DR A-20 Flow MPO A-21 Flow TdT A-22 cyCD3 03/15/2024 2:40 PM [facility] Pathologist Location at [facility] 03/15/2024 2:40 PM [facility] Disclaimer Test performed at [facility], [address] [place] [address], [id number]. *The established laboratory minimum viability is 70%. [...] high complexity clinical testing. 03/15/2024 2:40 PM [facility] Embedded Images 2:40 PM [facility] Pathology/Cytolo gy BONE MARROW SPECIMEN / Unknown Collection / Unknown 03/15/2024 9:05 AM TARIFF COMPILING CLERK 03/15/2024 9:30 AM TARIFF COMPILING CLERK Rodo Perez MD LAB - PATHOLOG Y/CYTOLOGY ORDERABLES [facility] PATH[facility] [address] [place] [address]. [place] [address], [facility] [phone] * BONE MARROW BIOPSY (STL) (03/15/2024 9:05 AM TARIFF COMPILING CLERK) Case Report Bone Marrow Patholog y Report ?Case: [id number] ? Authorizing Provider: ??Rodo Perez, ?? Collected: ? 03/15/2024 09:05 AM ? MD ? Ordering Location: ? [facility]N ACUTE ? Received: ?03/15/2024 09:30 AM ? Pathologist: ? Guillermo Brown H, MD ? Specimens: ?? A) - Bone Marrow Clot ? B) - Bone Marrow Core ? C) - Bone Marrow Aspirate ? D) - Blood Peripheral ? 03/18/2024 4:01 PM [facility] Final Diagnosis Bone marrow, aspirate, clot section, and core biopsy: - Acute myeloid leukemia. - See description. Peripheral blood smear: - Pancytopenia. - See description. 03/18/2024 4:01 PM [facility] Comment Immunohistochemistry performed show ~30% [...] for a definitive subclassification. 03/18/2024 4:01 PM [facility] Peripheral Smear Description RBC: normocytic anemia. WBC: leukopenia with absolute neutropenia and lymphopenia. No circulating blasts seen. Platelets: decreased in number. 03/18/2024 4:01 PM [facility] Bone Marrow Aspirate Differential count [...] stain): no ring sideroblasts. 03/18/2024 4:01 PM [facility] Bone Marrow Core Biopsy and [...] morphology: peripheral blood only. 03/18/2024 4:01 PM [facility] Flow Cytometry Summary Bone marrow, flow cytometric immunophenotypic analysis ([id number]): - Paucicellular specimen with increased myeloblasts detected (42.4% of events) 03/18/2024 4:01 PM [facility] Clinical History New AML. 03/18/2024 4:01 PM [facility] Gross Description The requisition and [...] in cassette B1. DF 03/18/2024 4:01 PM [facility] Pathologist Location at [facility] 03/18/2024 4:01 PM [facility] Disclaimer The performance characteristics of [...] the attending (teaching) pathologist. 03/18/2024 4:01 PM [facility] Embedded Images 03/18/2024 4:01 PM [facility] Pathology/Cytology PERIPHERAL BLOOD / Unknown Collection / Unknown 03/15/2024 9:05 AM TARIFF COMPILING CLERK 03/15/2024 9:30 AM TARIFF COMPILING CLERK Miscellaneous samples (specimen) BONE MARROW SPECIMEN / Unknown 03/15/2024 9:05 AM TARIFF COMPILING CLERK 03/15/2024 9:30 AM TARIFF COMPILING CLERK Miscellaneous samples (specimen) SPECIMEN FROM BONE MARROW OBTAINED BY ASPIRATION / Unknown 03/15/2024 9:05 AM TARIFF COMPILING CLERK 03/15/2024 9:30 AM TARIFF COMPILING CLERK Miscellaneous samples (specimen) PERIPHERAL BLOOD / Unknown 03/15/2024 9:05 AM TARIFF COMPILING CLERK 03/15/2024 11:39 AM TARIFF COMPILING CLERK Rodo Perez MD LAB - PATHOLOG Y/CYTOLOGY ORDERABLES Performing Organization Address City/State/[facility] Co de Phone Number [facility] [address] [phone] * FISH PML/DANTE PANEL (03/15/2024 9:05 AM TARIFF COMPILING CLERK) EER PML/DANTE Translocation by Fish See Note 03/17/2024 4:41 PM TARIFF COMPILING CLERK [employer] ([facility]) Comment: Authorized individuals can access the Gone! Enhanced Report using the following link: [email or web address] Performed By: [employer] [address] [place] [address] Manager Psychiatry: Uche Morley MD, PhD CLIA Number: [id number] PML/DANTE Translocation by FISH See Note 03/17/2024 4:41 PM [facility] [employer] ([facility]) Comment: Test Performed: PML-DANTE Translocation by FISH (FISH PML) Specimen Type: Bone Marrow Indication for Testing: MDS RESULT Normal FISH Result t(15;17) PML::DANTE ??Fusion: ??not detected INTERPRETATION There was no evidence of PML::DANTE fusion due to translocation (15;17)(q24;q21). This analysis was performed with the PML/DANTE probes ([employer]). A total of 200 cells were scored. Cytogenomic Nomenclature (ISCN): nuc nereyda(PML,DANTE)x2[200' This result has been reviewed and approved by Nabila Gonzalez, PhD, FACMG A portion of this analysis was performed at the following location(s): [facility] Site [place]#2 INTERPRETIVE INFORMATION: PML/DANTE Translocation by FISH This test was developed and its performance characteristics determined by [employer]. It has not been cleared or approved by the [place] Food and Drug Administration. This test was performed in a CLIA certified laboratory and is intended for clinical purposes. Other BONE MARROW SPECIMEN / Unknown Collection / Unknown 03/15/2024 9:05 AM TARIFF COMPILING CLERK 03/15/2024 9:30 AM TARIFF COMPILING CLERK Rodo Perez MD LAB - PATHOLOG Y/CYTOLOGY ORDERABLES [facility] [facility]) [address] [place] [phone] * CHROMOSOME ANALYSIS BONE MARROW PANEL (03/15/2024 9:05 AM TARIFF COMPILING CLERK) Chromosome Analysis Bone Marrow See Note Normal 03/22/2024 11:01 AM TARIFF COMPILING CLERK [employer] ([facility]) Comment: Test Performed: Chromosome Analysis Specimen [...] PML performed under [facility] accession [id number] was NORMAL. FISHAML and FISH MDS P are PENDING and will be reported under [facility] accessions [id number] and [id number]. This result has been reviewed and approved by Randall Yun, PhD, [facility] A portion of this analysis was performed at the following location(s): [facility] [facility]4 [facility] INTERPRETIVE INFORMATION: Chromosome Analysis, Bone Marrow This test was developed and its performance characteristics determined by [employer]. It has not been cleared or approved by the US Food and Drug Administration. This test was performed in a CLIA certified laboratory and is intended for clinical purposes. EER Chromosome Analysis Bone Marrow See Note 03/22/2024 11:01 AM TARIFF COMPILING CLERK [employer] ([facility]) Comment: Authorized individuals can access the [facility] Enhanced Report using the following link: [email or web address] Performed By: [employer] [address] [place] [address] Manager Psychiatry: Uche Morley MD, PhD CLIA Number: [id number] Bone marrow BONE MARROW SPECIMEN / Unknown 03/15/2024 9:05 AM TARIFF COMPILING CLERK 03/15/2024 9:30 AM TARIFF COMPILING CLERK Rodo Perez MD LAB - PATHOLOG Y/CYTOLOGY ORDERABLES [employer] [facility]) [address] [place] [phone] * (ABNORMAL) DIFFERENTIAL MANUAL (03/15/2024 7:53 AM TARIFF COMPILING CLERK) Neutrophil % 8(L) 41 - 74 % 03/15/2024 9:45 AM [facility] Lymphocyte % 81(H) 17 - 47 % 03/15/2024 9:45 AM [facility] Monocyte % 6 3 - 11 % 03/15/2024 9:45 AM [facility] Eosinophil % 3 0 - 7 % 03/15/2024 9:45 AM [facility] Basophil % 2 0 - 2 % 03/15/2024 9:45 AM [facility] Neutrophil Absolute 0.07(L) 1.60 - 7.50 x10E9/L 03/15/2024 9:45 AM [facility] Lymphocyte Absolute 0.73(L) 1.00 - 4.40 x10E9/L 03/15/2024 9:45 AM [facility] Monocyte Absolute 0.05(L) 0.15 - 1.00 x10E9/L 03/15/2024 9:45 AM [facility] Eosinophil Absolute 0.03 0.00 - 0.60 x10E9/L 03/15/2024 9:45 AM [facility] Basophil Absolute 0.02 0.00 - 0.13 x10E9/L 03/15/2024 9:45 AM [facility] RBC Morphology REVIEWED 03/15/2024 9:45 AM [facility] Ovalocytes MODERATE(A) (none) 03/15/2024 9:45 AM [facility] Schistocytes FEW(A) (none) 03/15/2024 9:45 AM [facility] Large Platelets PRESENT(A) (none) 9:45 AM [facility] Blood BLOOD SPECIMEN / Unknown Lab Venipuncture / Unknown 03/15/2024 7:53 AM TARIFF COMPILING CLERK 03/15/2024 8:34 AM TARIFF COMPILING CLERK Ghanshyam Dewey PA-C LAB - HEMATOLOGY ORD ERABLES Performing Organization Address City/State/[facility] Co de Phone Number [address] [address], [facility] [phone] * LDH BLOOD (03/15/2024 7:53 AM TARIFF COMPILING CLERK) LDH Total 163 125 - 243 Units/L 03/15/2024 9:27 AM [facility] Blood BLOOD SPECIMEN / Unknown Lab Venipuncture / Unknown 03/15/2024 7:53 AM TARIFF COMPILING CLERK 03/15/2024 8:33 AM TARIFF COMPILING CLERK Ghanshyam Dewey PA-C LAB - CHEMISTRY ORDE RABLES [address] [address], [facility] [phone] * PTT [facility] (03/15/2024 7:53 AM TARIFF COMPILING CLERK) Pathologist [facility] APTT 31.4 23.0 - 38.4 Seconds 03/15/2024 9:04 AM [facility] Comment:Suggested therapeuti c range for full dose I.V. unfractionated heparin therapy for venous 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 is 71 to 109 seconds. Blood BLOOD SPECIMEN / Unknown Lab Venipuncture / Unknown 03/15/2024 7:53 AM TARIFF COMPILING CLERK 03/15/2024 8:27 AM TARIFF COMPILING CLERK Ghanshyam Dewey PA-C LAB - COAGULATION OR DERABLES Performing Organization Address City/[facility]/ZIP Co de Phone Number [address] [address], [facility] [phone] * (ABNORMAL) PT-INR [facility] (03/15/2024 7:53 AM TARIFF COMPILING CLERK) PT 16.1(H) 12.1 - 14.8 Seconds 03/15/2024 9:04 AM [facility] INR 1.3 See Comment 03/15/2024 9:04 AM [facility] Comment:The suggested therap eutic range for standard coumadin (warfarin) therapy is an INR of 2.0-3.0. For high-risk patients (Mechanical Mitral Valve Prosthesis, etc.), the suggested prophylactic therapeutic range is an INR of 2.5-3.5. Blood BLOOD SPECIMEN / Unknown Lab Venipuncture / Unknown 03/15/2024 7:53 AM TARIFF COMPILING CLERK 03/15/2024 8:27 AM TARIFF COMPILING CLERK Ghanshyam Dewey PA-C LAB - COAGULATION OR DERABLES Performing Organization Address City/[facility]/ZIP Co de Phone Number [address] [address], [facility] [phone] * URIC ACID BLOOD (03/15/2024 7:53 AM TARIFF COMPILING CLERK) Uric Acid 6.2 3.5 - 7.2 mg/dL 03/15/2024 9:27 AM TARIFF COMPILING CLERK [facility] Blood BLOOD SPECIMEN / Unknown Lab Venipuncture / Unknown 03/15/2024 7:53 AM TARIFF COMPILING CLERK 03/15/2024 8:33 AM TARIFF COMPILING CLERK Ghanshyam Dewey PA-C LAB - CHEMISTRY CHELI MONREAL Performing Organization Address City/[facility]/ZIP Co de Phone Number [address] [address], [place] [phone] * PHOSPHORUS BLOOD (03/15/2024 7:53 AM TARIFF COMPILING CLERK) Phosphorus 2.9 2.8 - 5.1 mg/dL 03/15/2024 9:27 AM TARIFF COMPILING CLERK [facility] Blood BLOOD SPECIMEN / Unknown Lab Venipuncture / Unknown 03/15/2024 7:53 AM TARIFF COMPILING CLERK 03/15/2024 8:33 AM TARIFF COMPILING CLERK Ghanshyam Dewey PA-C LAB - CHEMISTRY CHELI MONREAL Performing Organization Address City/[facility]/ZIP Co de Phone Number [address] [address], [place] [phone] * MAGNESIUM BLOOD (03/15/2024 7:53 AM TARIFF COMPILING CLERK) Magnesium 2.1 1.6 - 2.6 mg/dL 03/15/2024 9:27 AM TARIFF COMPILING CLERK [facility] Blood BLOOD SPECIMEN / Unknown Lab Venipuncture / Unknown 03/15/2024 7:53 AM TARIFF COMPILING CLERK 03/15/2024 8:33 AM [facility] Ghanshyam Dewey PA-C LAB - CHEMISTRY CHELI MONREAL [facility] [address] [place] [address], [facility] [phone] * (ABNORMAL) COMPREHENSIVE METABOLIC PANEL (03/15/2024 7:53 AM TARIFF COMPILING CLERK) BUN 12 7 - 26 mg/dL 03/15/2024 9:27 AM [facility] Creatinine 1.34(H) 0.71 - 1.16 mg/dL 03/15/2024 9:27 AM [facility] Sodium 145 136 - 145 mmol/L 03/15/2024 9:27 AM [facility] Potassium 4.3 3.5 - 4.5 mmol/L 03/15/2024 9:27 AM [facility] Chloride 107 98 - 107 mmol/L 03/15/2024 9:27 AM [facility] CO2 25 22 - 29 mmol/L 03/15/2024 9:27 AM [facility] Glucose 104(H) 70 - 99 mg/dL 03/15/2024 9:27 AM [facility] Calcium 9.3 8.4 - 10.2 mg/dL 03/15/2024 9:27 AM [facility] Protein Total 6.4 6.0 - 8.3 g/dL 03/15/2024 9:27 AM [facility] Albumin 3.5 3.4 - 5.0 g/dL 03/15/2024 9:27 AM [facility] Bilirubin Total 0.8 0.2 - 1.2 mg/dL 03/15/2024 9:27 AM [facility] Alkaline Phosphatase 115 40 - 150 U/L 03/15/2024 9:27 AM [facility] ALT 12 5 - 55 U/L 03/15/2024 9:27 AM [facility] AST 15 5 - 34 U/L 03/15/2024 9:27 AM [facility] Anion Gap 13 6 - 16 03/15/2024 9:27 AM [facility] BUN/Creatinine Ratio 9 7 - 23 03/15/2024 9:27 AM [facility] Osmolality Calculated 300(H) 275 - 295 mOsm/kg 03/15/2024 9:27 AM [facility] Albumin/Globulin Ratio 1.2 1.1 - 2.3 03/15/2024 9:27 AM [facility] eGFR by CKD-EPI 54(L) >=90 mL/min/1.7 3 m2 03/15/2024 9:27 AM [facility] Blood BLOOD SPECIMEN / Unknown Lab Venipuncture / Unknown 03/15/2024 7:53 AM TARIFF COMPILING CLERK 03/15/2024 8:33 AM TARIFF COMPILING CLERK Ghanshyam Dewey PA-C LAB - CHEMISTRY CHELI MONREAL [facility] Organization Address City/State/ZIP Co de Phone Number [facility] [address] [place] [phone] [phone] * (ABNORMAL) CBC W AUTO DIFFERENTIAL (03/15/2024 7:53 AM TARIFF COMPILING CLERK) WBC 0.9(LL) 4.0 - 10.7 x10E9/L 03/15/2024 9:45 AM [facility] RBC Count 4.12(L) 4.30 - 5.80 x10E12/L 03/15/2024 9:45 AM [facility] Hemoglobin 11.7(L) 13.3 - 17.5 g/dL 03/15/2024 9:45 AM [facility] Hematocrit 35.9(L) 38.7 - 51.1 % 03/15/2024 9:45 AM [facility] MCV 87.1 80.0 - 98.0 fL 03/15/2024 9:45 AM [facility] MCH 28.4 26.7 - 33.6 pg 03/15/2024 9:45 AM [facility] MCHC 32.6 31.7 - 36.3 g/dL 03/15/2024 9:45 AM [facility] RDW-CV 17.0(H) 11.3 - 14.8 % 03/15/2024 9:45 AM [facility] Platelet Count 95(L) 150 - 420 x10E9/L 03/15/2024 9:45 AM [facility] MPV 12.7(H) 7.8 - 11.4 fL 03/15/2024 9:45 AM [facility] Preliminary Absolute Neutrophil 0.10(L) 1.60 - 7.50 x10E9/L 03/15/2024 9:45 AM [facility] Blood BLOOD SPECIMEN / Unknown Lab Venipuncture / Unknown 03/15/2024 7:53 AM [employer]ARIFF [employer]ILING CLERK 03/15/2024 8:34 AM [employer]ARIFF [employer]ILING CL[employer] Ghanshyam Dewey PA-C LAB - HEMATOLOGY ORD ERABLES Performing Organization Address City/[facility]/ZIP Co de Phone Number [facility] [address] [place] [address], [facility] [phone] * EKG 12-LEAD (03/14/2024 12:30 PM TARIFF COMPILING CLERK) Ventricular Rate 61 BPM [facility] MUSE Atrial Rate 61 BPM [facility] MUSE P-R Interval 112 ms [facility] MUSE QRS Duration ms 122 ms [facility] MUSE Q-T Interval ms 470 ms [facility] MUSE QTC Calculation (Bezet) 473 ms [facility] MUSE Calculated P Rindge 28 degrees [facility] MUSE Calculated R Rindge 37 degrees [facility] MUSE Calculated T Rindge -135 degrees [facility] MUSE Interpretation EKG NORMAL SINUS RHYTHM RIGHT BUNDLE BRANCH BLOCK T WAVE ABNORMALITY, CONSIDER INFEROLATERAL ISCHEMIA ABNORMAL ECG NO PREVIOUS ECGS AVAILABLE Confirmed by SEBASTIÁN MERRILL DO ([id number]) on 03/20/2024 3:59:47 PM [facility] MUSE 03/14/2024 12:3 0 PM TARIFF COMPILING CLERK 03/20/2024 3:59 PM [employer]ARIFF COMPILING CLERK Ghanshyam Dewey PA-C ECG ORDERABLES Performing Organization Address City/[facility]/ZIP Co de Phone Number [facility] MUSE * FLOW CYTOMETRY BLOOD PROFILE (03/14/2024 10:32 AM TARIFF COMPILING CLERK) Case Report Flow Cytometry ?Case: [id number] ? Authorizing Provider: ??Ghanshyam Dewey PA-C ? Collected: ? 03/14/2024 10:32 AM ? Ordering Location: ? [facility] ACUTE ? Received: ?03/14/2024 01:49 PM ? Pathologist: ? Angeles Rosado MD ? Specimen: ?Blood ? 03/14/2024 4:58 PM [facility] Final Diagnosis Peripheral blood, flow cytometric immunophenotypic analysis: - 1.2% myeloblasts detected - No evidence of a monoclonal B-cell population - See interpretation 03/14/2024 4:58 PM [facility] Flow Cytometry Results Differential Result Comment WBC Count /uL 1,200 Total Viability % 100.0 Lymphocytes % 80 Dim CD45 Region % 4 Monocytes % 4 Granulocytes % 13 03/14/2024 4:58 PM [facility] Flow Cytometry Interpretation Viability: 100% B-cells: polytypic, kappa:lambda ratio 1.1:1. Blasts: 1.2% of events are myeloblasts. Monocytes are mature. A peripheral blood smear prepared from the flow cytometry specimen has been reviewed for chemistry quality control analyst purposes. 03/14/2024 4:58 PM [facility] Reason for test MDS (myelodysplastic syndrome) (HCC) 238.75 03/14/2024 4:58 PM [facility] Client Specimen ID # [id number] 03/14/2024 4:58 PM [facility] Pathologist Location at [facility] 03/14/2024 4:58 PM [facility] Disclaimer Test performed at [facility], [address] [place] [address], [id number]. *The established laboratory minimum viability is 70%. [...] high complexity clinical testing. 03/14/2024 4:58 PM [facility] Embedded Images 4:58 PM [facility] Number of markers 19 were performed. A-2 Flow CD10 A-3 Flow CD13 A-5 Flow CD20 A-11 Flow CD2 A-13 Flow CD14 A-16 Flow CD117 A-17 Flow CD11b A-18 Flow CD11c A-1 Flow CD5 A-4 Flow CD19 A-6 Flow CD33 A-7 Flow CD34 A-8 Flow CD45 A-12 Flow CD7 A-14 Flow CD56 A-15 Flow CD64 A-9 Darwin+CD19+ A-10 Lambda+CD19+ A-19 Flow HLA-DR 03/14/2024 4:58 PM [facility] Blood BLOOD SPECIMEN / Unknown Lab Venipuncture / Unknown 03/14/2024 10:32 AM [employer]ARIFF COMPILING CLERK 03/14/2024 1:49 PM [employer]ARIFF COMPILING CLERK Ghanshyam Dewey PA-C LAB - PATHOLOGY/CYTO LOGY ORDERABLES [facility] [address] [phone] * (ABNORMAL) DIFFERENTIAL MANUAL (03/13/2024 11:26 PM [facility] Neutrophil % 6(L) 41 - 74 % 03/14/2024 12:34 AM [facility] Lymphocyte % 87(H) 17 - 47 % 03/14/2024 12:34 AM [facility] Monocyte % 3 3 - 11 % 03/14/2024 12:34 AM [facility] Eosinophil % 3 0 - 7 % 03/14/2024 12:34 AM [facility] Basophil % 1 0 - 2 % 03/14/2024 12:34 AM [facility] Neutrophil Absolute 0.07(L) 1.60 - 7.50 x10E9/L 03/14/2024 12:34 AM [facility] Lymphocyte Absolute 1.04 1.00 - 4.40 x10E9/L 03/14/2024 12:34 AM [facility] Monocyte Absolute 0.04(L) 0.15 - 1.00 x10E9/L 03/14/2024 12:34 AM [facility] Eosinophil Absolute 0.04 0.00 - 0.60 x10E9/L 03/14/2024 12:34 AM [facility] Basophil Absolute 0.01 0.00 - 0.13 x10E9/L 03/14/2024 12:34 AM [facility] RBC Morphology REVIEWED 03/14/2024 12:34 AM [facility] Microcytosis MODERATE(A) (none) 03/14/2024 12:34 AM [facility] Schistocytes MODERATE(A) (none) 03/14/2024 12:34 AM [facility] Giant Platelets PRESENT(A) (none) 12:34 AM [facility] Large Platelets PRESENT(A) (none) 12:34 AM [facility] Blood BLOOD SPECIMEN / Unknown Venipuncture / Unknown 03/13/2024 11:26 PM [employer] COMP[employer]ING CLERK 03/13/2024 11:37 PM [employer] COMP[employer] CLERK Ted Soler MD LAB - HEMATOLOGY O RDERABLES [facility] [address] [place] [address], [place] [phone] * [facility] VIRUS QUANT BLOOD STL (03/13/2024 11:26 PM TARIFF COMPILING CLERK) Pathologist [facility] EBV Quant by PCR, Interp Not detected Not detected 03/14/2024 8:56 AM TARIFF COMPILING CLERK [facility] Specimen Type Plasma 03/14/2024 8:56 AM TARIFF COMPILING CLERK [facility] Blood BLOOD SPECIMEN / Unknown Venipuncture / Unknown 03/13/2024 11:26 PM TARIFF COMPILING CLERK 03/13/2024 11:37 PM TARIFF COMPILING CLERK Narrative [facility] - 03/14/2024 8:56 AM TARIFF COMPILING CLERK [facility] [place] viral (EBV) DNA analysis utilized [...] Soler MD LAB - CHEMISTRY OR DERABLES [facility] [address] [place] [address], [facility] [phone] * CYTOMEGALOVIRUS (CMV) QUANTITATIVE PLASMA (03/13/2024 11:26 PM TARIFF COMPILING CLERK) Pathologist [facility] CMV Quant by PCR, Interp Not detected Not detected 03/14/2024 9:00 AM TARIFF COMPILING CLERK [facility] Blood BLOOD SPECIMEN / Unknown Venipuncture / Unknown 03/13/2024 11:26 PM TARIFF COMPILING CLERK 03/13/2024 11:37 PM TARIFF COMPILING CLERK Narrative [facility] - 03/14/2024 9:00 AM TARIFF COMPILING CLERK The Cytomegalovirus (CMV) DNA analysis utilized [...] Soler MD LAB - CHEMISTRY OR DERABLES [facility] [address] [place] [phone] * LDH BLOOD (03/13/2024 11:26 PM TARIFF COMPILING CLERK) Pathologist [facility] LDH Total 149 125 - 243 Units/L 03/14/2024 12:03 AM TARIFF COMPILING CLERK [facility] Blood BLOOD SPECIMEN / Unknown Venipuncture / Unknown 03/13/2024 11:26 PM TARIFF COMPILING CLERK 03/13/2024 11:37 PM TARIFF COMPILING CLERK Ted Soler MD LAB - CHEMISTRY OR DERABLES Performing Organization Address City/[facility]/ZIP Co de Phone Number [facility] [address] [place] [address], [facility] [phone] * PTT [facility] (03/13/2024 11:26 PM TARIFF COMPILING CLERK) APTT 31.6 23.0 - 38.4 Seconds 03/13/2024 11:58 PM TARIFF COMPILING CLERK [facility] Comment:Suggested therapeuti c range for full dose I.V. unfractionated heparin therapy for venous 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 is 71 to 109 seconds. Blood BLOOD SPECIMEN / Unknown Venipuncture / Unknown 03/13/2024 11:26 PM TARIFF COMPILING CLERK 03/13/2024 11:37 PM TARIFF COMPILING CLERK Ted Soler MD LAB - COAGULATION ORDERABLES Performing Organization Address [facility]/ZIP Co de Phone Number [address] [address], [facility] [phone] * (ABNORMAL) PT-INR [facility] (03/13/2024 11:26 PM TARIFF COMPILING CLERK) PT 16.5(H) 12.1 - 14.8 Seconds 03/13/2024 11:58 PM TARIFF COMPILING CLERK [facility] INR 1.4 See Comment 03/13/2024 11:58 PM TARIFF COMPILING CLERK [facility] Comment:The suggested therap eutic range for standard coumadin (warfarin) therapy is an INR of 2.0-3.0. For high-risk patients (Mechanical Mitral Valve Prosthesis, etc.), the suggested prophylactic therapeutic range is an INR of 2.5-3.5. Blood BLOOD SPECIMEN / Unknown Venipuncture / Unknown 03/13/2024 11:26 PM TARIFF COMPILING CLERK 03/13/2024 11:37 PM TARIFF COMPILING CLERK Ted Soler MD LAB - COAGULATION ORDERABLES Performing Organization Address [facility]/ZIP Co de Phone Number [facility] [address] [place] [address], [place] [phone] * FIBRINOGEN ACTIVITY (03/13/2024 11:26 PM TARIFF COMPILING CLERK) Fibrinogen Clauss 362 200 - 400 mg/dL 03/13/2024 11:59 PM TARIFF COMPILING CLERK [facility] Blood BLOOD SPECIMEN / Unknown Venipuncture / Unknown 03/13/2024 11:26 PM TARIFF COMPILING CLERK 03/13/2024 11:37 PM TARIFF COMPILING CLERK Ted Soler MD LAB - COAGULATION ORDERABLES Performing Organization Address City/State/[facility] Co de Phone Number [facility] [address] [place] [address], [facility] [phone] * D-DIMER (03/13/2024 11:26 PM TARIFF COMPILING CLERK) [facility] D-Dimer Quantitative <0.27 <=0.50 mcg/mL FEU 03/14/2024 12:00 AM TARIFF COMPILING CLERK [facility] Comment: In the absence of clinical [...] Unknown Venipuncture / Unknown 03/13/2024 11:26 PM TARIFF COMPILING CLERK 03/13/2024 11:37 PM TARIFF COMPILING CLERK Ted Soler MD LAB - COAGULATION ORDERABLES Performing Organization Address City/[facility]/ZIP Co de Phone Number [address] [address], [facility] [phone] * URIC ACID BLOOD (03/13/2024 11:26 PM TARIFF COMPILING CLERK) Uric Acid 6.0 3.5 - 7.2 mg/dL 03/14/2024 12:15 AM TARIFF COMPILING CLERK [facility] Blood BLOOD SPECIMEN / Unknown Venipuncture / Unknown 03/13/2024 11:26 PM TARIFF COMPILING CLERK 03/13/2024 11:37 PM TARIFF COMPILING CLERK Ted Soler MD LAB - CHEMISTRY OR DERABLES Performing Organization Address [facility] Co de Phone Number [address] [address], [facility] [phone] * PHOSPHORUS BLOOD (03/13/2024 11:26 PM TARIFF COMPILING CLERK) Phosphorus 3.5 2.8 - 5.1 mg/dL 03/14/2024 12:03 AM TARIFF COMPILING CLERK [facility] Blood BLOOD SPECIMEN / Unknown Venipuncture / Unknown 03/13/2024 11:26 PM TARIFF COMPILING CLERK 03/13/2024 11:37 PM TARIFF COMPILING CLERK Ted Soler MD LAB - CHEMISTRY OR DERABLES Performing Organization Address City/[facility]/ZIP Co de Phone Number [address] [address], [facility] [phone] * MAGNESIUM BLOOD (03/13/2024 11:26 PM TARIFF COMPILING CLERK) Magnesium 2.2 1.6 - 2.6 mg/dL 03/14/2024 12:03 AM TARIFF COMPILING CLERK [facility] Blood BLOOD SPECIMEN / Unknown Venipuncture / Unknown 03/13/2024 11:26 PM TARIFF COMPILING CLERK 03/13/2024 11:37 PM TARIFF COMPILING CLERK Ted Soler MD LAB - CHEMISTRY OR DERABLES [facility] [address] [place] [address], [facility] [phone] * (ABNORMAL) COMPREHENSIVE METABOLIC PANEL (03/13/2024 11:26 PM [facility] BUN 16 7 - 26 mg/dL 03/14/2024 12:03 AM [facility] Creatinine 1.12 0.71 - 1.16 mg/dL 03/14/2024 12:03 AM [facility] Sodium 140 136 - 145 mmol/L 03/14/2024 12:03 AM [facility] Potassium 4.0 3.5 - 4.5 mmol/L 03/14/2024 12:03 AM [facility] Chloride 109(H) 98 - 107 mmol/L 03/14/2024 12:03 AM [facility] CO2 24 22 - 29 mmol/L 03/14/2024 12:03 AM [facility] Glucose 110(H) 70 - 99 mg/dL 03/14/2024 12:03 AM [facility] Calcium 9.3 8.4 - 10.2 mg/dL 03/14/2024 12:03 AM [facility] Protein Total 6.6 6.0 - 8.3 g/dL 03/14/2024 12:03 AM [facility] Albumin 3.7 3.4 - 5.0 g/dL 03/14/2024 12:03 AM [facility] Bilirubin Total 0.5 0.2 - 1.2 mg/dL 03/14/2024 12:03 AM [facility] Alkaline Phosphatase 109 40 - 150 U/L 03/14/2024 12:03 AM [facility] ALT 16 5 - 55 U/L 03/14/2024 12:03 AM [facility] AST 19 5 - 34 U/L 03/14/2024 12:03 AM [facility] Anion Gap 7 6 - 16 03/14/2024 12:03 AM [facility] BUN/Creatinine Ratio 14 7 - 23 03/14/2024 12:03 AM [facility] Osmolality Calculated 292 275 - 295 mOsm/kg 03/14/2024 12:03 AM [facility] Albumin/Globulin Ratio 1.3 1.1 - 2.3 03/14/2024 12:03 AM [facility] eGFR by CKD-EPI 67(L) >=90 mL/min/1.7 3 m2 03/14/2024 12:03 AM [facility] Blood BLOOD SPECIMEN / Unknown Venipuncture / Unknown 03/13/2024 11:26 PM TARIFF COMPILING CLERK 03/13/2024 11:37 PM TARIFF COMPILING CLERK Ted Soler MD LAB - CHEMISTRY OR DERABLES [facility] [address] [place] [address], [facility] [phone] * (ABNORMAL) CBC W AUTO DIFFERENTIAL (03/13/2024 11:26 PM TARIFF COMPILING CLERK) WBC 1.2(L) 4.0 - 10.7 x10E9/L 03/14/2024 12:34 AM [facility] RBC Count 4.14(L) 4.30 - 5.80 x10E12/L 03/14/2024 12:34 AM [facility] Hemoglobin 11.6(L) 13.3 - 17.5 g/dL 03/14/2024 12:34 AM [facility] Hematocrit 35.8(L) 38.7 - 51.1 % 03/14/2024 12:34 AM [facility] MCV 86.5 80.0 - 98.0 fL 03/14/2024 12:34 AM [facility] MCH 28.0 26.7 - 33.6 pg 03/14/2024 12:34 AM [facility] MCHC 32.4 31.7 - 36.3 g/dL 03/14/2024 12:34 AM [facility] RDW-CV 17.0(H) 11.3 - 14.8 % 03/14/2024 12:34 AM [facility] Platelet Count 103(L) 150 - 420 x10E9/L 03/14/2024 12:34 AM [facility] MPV 12.8(H) 7.8 - 11.4 fL 03/14/2024 12:34 AM [facility] Preliminary Absolute Neutrophil 0.11(L) 1.60 - 7.50 x10E9/L 03/14/2024 12:34 AM [facility] Comment:Preliminary ANC pend ing manual confirmation Blood BLOOD SPECIMEN / Unknown Venipuncture / Unknown 03/13/2024 11:26 PM TARIFF COMPILING CLERK 03/13/2024 11:37 PM TARIFF COMPILING CLERK Ted Soler MD LAB - HEMATOLOGY O RDERACAROL [facility] [address] [place] [address], [facility] [phone] * CHROMOSOME ANALYSIS LEUKEMIA BLD (03/04/2024 4:13 PM TARIFF COMPILING CLERK) Chromosome Analysis Leukemic Blood See Note Normal 03/23/2024 12:39 PM [facility] [employer] ([facility]) Comment: Test Performed: Chromosome Analysis Specimen [...] MDS performed under [facility] accessions [id number] and [id number] were NORMAL. This result has been reviewed and approved by Margaret Roberson, PhD, [facility] INTERPRETIVE INFORMATION: Chromosome Analysis, ?Leukemic Blood This test was developed and its performance characteristics determined by [facility]. It has not been cleared or approved by the US Food and Drug Administration. This test was performed in a CLIA certified laboratory and is intended for clinical purposes. EER Chromosome Analysis Leukemic See Note 03/23/2024 12:39 PM TARIFF COMPILING CLERK [facility] [employer] ([facility]) Comment: Authorized individuals can access the Gone! Enhanced Report using the following link: [email or web address] Performed By: [facility] [address] [place] [address] Manager Psychiatry: Uche Morley MD, PhD CLIA Number: [id number] Blood BLOOD SPECIMEN / Unknown Lab Venipuncture / Unknown 03/04/2024 4:13 PM TARIFF COMPILING CLERK 03/22/2024 5:28 PM TARIFF COMPILING CLERK Cindy Garcia MD LAB - PATHOLOGY/CYTO LOGY ORDERABLES [employer] [facility] [address]) [address] [place] [address], [facility] documented in this encounter Visit Diagnoses Diagnosis [...] Intracatheter, EVERY 8 HOURS, First dose on 03/13/24 at 2215, Until Discontinued, Flush peripheral IV catheter with 3 mL of normal saline every 8 hours. $ Given 03/23/2024 8:53 AM TARIFF COMPILING CLERK 3 mL $ Given 03/22/2024 8:30 PM TARIFF COMPILING CLERK 3 mL $ Given 03/21/2024 9:34 PM TARIFF COMPILING CLERK 3 mL acetaminophen (Tylenol) tablet 650 mg [...] Until Discontinued $ Given 03/23/2024 8:52 AM TARIFF COMPILING CLERK 300 mg $ Given 03/22/2024 8:38 AM TARIFF COMPILING CLERK 300 mg $ Given 03/21/2024 9:08 AM TARIFF COMPILING CLERK 300 mg apixaban (Eliquis) tablet 2.5 mg 2.5 mg, Oral, 2 TIMES DAILY, First dose (after last modification) on 03/16/24 at 2100, Until Discontinued $ Given 03/23/2024 8:52 AM TARIFF COMPILING CLERK 2.5 mg $ Given 03/22/2024 8:30 PM TARIFF COMPILING CLERK 2.5 mg $ Given 03/22/2024 8:38 AM TARIFF COMPILING CLERK 2.5 mg decitabine (Dacogen) 45 mg in 0.9% NaCl IV 119 mL infusion 45 mg (rounded from 44.8 mg = 20 mg/m2 ? 2.24 m2 Treatment Plan BSA from Recorded weight), at 119 mL/hr, Administer over 60 Minutes, Intravenous, ONCE, 1 dose, On Mon03/19/24 at 1700, WASTE DISPOSAL INSTRUCTIONS: Chemo Bin Disposal required. $ New Bag/Syringe 03/19/2024 5:46 PM TARIFF COMPILING CLERK 45 mg 119 mL/hr decitabine (Dacogen) 45 mg in 0.9% NaCl IV 119 mL infusion 45 mg (rounded from 44.8 mg = 20 mg/m2 ? 2.24 m2 Treatment Plan BSA from Recorded weight), at 119 mL/hr, Administer over 60 Minutes, Intravenous, ONCE, 1 dose, On Mon03/20/24 at 1300, WASTE DISPOSAL INSTRUCTIONS: Chemo Bin Disposal required. $ New Bag/Syringe 03/20/2024 12:57 PM TARIFF COMPILING CLERK 45 mg 119 mL/hr decitabine (Dacogen) 45 mg in 0.9% NaCl IV 119 mL infusion 45 mg (rounded from 44.8 mg = 20 mg/m2 ? 2.24 m2 Treatment Plan BSA from Recorded weight), at 119 mL/hr, Administer over 60 Minutes, Intravenous, ONCE, 1 dose, On Mon03/21/24 at 1300, WASTE DISPOSAL INSTRUCTIONS: Chemo Bin Disposal required. $ New Bag/Syringe 03/21/2024 1:24 PM TARIFF COMPILING CLERK 45 mg 119 mL/hr decitabine (Dacogen) 45 mg in 0.9% NaCl IV 119 mL infusion 45 mg (rounded from 44.8 mg = 20 mg/m2 ? 2.24 m2 Treatment Plan BSA from Recorded weight), at 119 mL/hr, Administer over 60 Minutes, Intravenous, ONCE, 1 dose, On Mon03/22/24 at 1300, WASTE DISPOSAL INSTRUCTIONS: Chemo Bin Disposal required. $ New Bag/Syringe 03/22/2024 12:02 PM TARIFF COMPILING CLERK 45 mg 119 mL/hr decitabine (Dacogen) 45 mg in 0.9% NaCl IV 119 mL infusion 45 mg (rounded from 44.8 mg = 20 mg/m2 ? 2.24 m2 Treatment Plan BSA from Recorded weight), at 119 mL/hr, Administer over 60 Minutes, Intravenous, ONCE, 1 dose, On Mon03/23/24 at 1100, WASTE DISPOSAL INSTRUCTIONS: Chemo Bin Disposal required. $ New Bag/Syringe 03/23/2024 11:25 AM TARIFF COMPILING CLERK 45 mg 119 mL/hr dilTIAZem coated beads 24hr (Cardizem CD) capsule 120 mg 120 mg, Oral, DAILY, First dose on Mon03/14/24 at 0900, Until Discontinued, Do not crush or chew. $ Given 03/23/2024 8:51 AM TARIFF COMPILING CLERK 120 mg $ Given 03/22/2024 8:38 AM TARIFF COMPILING CLERK 120 mg $ Given 03/21/2024 9:08 AM TARIFF COMPILING CLERK 120 mg lactated ringers infusion at 50 mL/hr, Intravenous, CONTINUOUS, Starting on Mon03/20/24 at 1000, Until 03/23/24 at 1456 $ New Bag/Syringe 03/23/2024 6:47 AM TARIFF COMPILING CLERK 50 mL/hr Rate Change 03/22/2024 10:35 AM TARIFF COMPILING CLERK 50 mL/hr Restarted 03/21/2024 9:33 PM TARIFF COMPILING CLERK 75 mL/hr lactated ringers IV bolus 500 mL, at 967.74 mL/hr, Administer over 31 Minutes, ONCE, 1 dose, On Mon03/20/24 at 0900 $ New Bag/Syringe 03/20/2024 9:39 AM TARIFF COMPILING CLERK 500 mL 967.74 mL/hr levoFLOXacin (Levaquin) tablet 500 mg 500 mg, Oral, EVERY 24 HOURS, First dose on Mon03/13/24 at 2345, Until Discontinued, Administer at least 2 hours before or 2 hours after antacids, sucralfate, metals (eg, iron, zinc), multivitamin preparations, tube feeds, Indication for anti-infective therapy: Chronic prophylaxis $ Given 03/23/2024 8:51 AM TARIFF COMPILING CLERK 500 mg $ Given 03/22/2024 8:38 AM TARIFF COMPILING CLERK 500 mg $ Given 03/21/2024 9:08 AM TARIFF COMPILING CLERK 500 mg LORazepam (Ativan) injection 2 mg 2 mg, Intravenous, NOW, 1 dose, On Mon03/15/24 at 0830 $ Given 03/15/2024 8:27 AM TARIFF COMPILING CLERK 2 mg magnesium oxide (Mag-Ox) tablet 400 mg 400 mg, Oral, 2 TIMES DAILY, 6 doses, First dose on Mon03/23/24 at 0730, Last dose on Mon03/25/24 at 1800 $ Given 03/23/2024 8:52 AM TARIFF COMPILING CLERK 400 mg ondansetron (disintegrating) (Zofran ODT) tablet 8 mg 8 mg, Oral, 2 TIMES DAILY PRN, Nausea/Vomiting, Starting on Mon03/19/24 at 1456, Until 03/23/24 at 1456, Use as alternate to prochlorperazine (COMPAZINE) for breakthrough nausea. Use if no IV access. Dissolved orally on tongue pantoprazole EC (Protonix) tablet 40 mg 40 mg, Oral, DAILY, First dose on Yas 03/14/24 at 0900, Until Discontinued, Do not crush, chew, or cut in half. $ Given 03/23/2024 8:52 AM TARIFF COMPILING CLERK 40 mg $ Given 03/22/2024 8:38 AM TARIFF COMPILING CLERK 40 mg $ Given 03/21/2024 9:08 AM TARIFF COMPILING CLERK 40 mg perflutren lipid microsphere (Definity) injection 0.5 mL 0.5 mL, Intravenous, INTRA-PROCEDURE MULTIPLE, Starting on Mon03/15/24 at 1348, Until Mon03/15/24 at 1747, For Echo Procedure - Per Protocol Give slowly Shake well before using. $ Given 03/15/2024 1:54 PM TARIFF COMPILING CLERK 0.5 mL polyethylene glycol 3350 (Miralax) packet 17 g 17 g, Oral, DAILY, First dose on Mon03/15/24 at 2145, Until Discontinued, Mix in 8 ounces of water, juice, soda, coffee or tea prior to administration $ Given 03/23/2024 8:53 AM TARIFF COMPILING CLERK 17 g $ Given 03/22/2024 8:38 AM TARIFF COMPILING CLERK 17 g $ Given 03/21/2024 9:08 AM TARIFF COMPILING CLERK 17 g posaconazole (Noxafil) tablet 300 mg 300 mg, Oral, DAILY WITH DINNER, First dose on Mon03/13/24 at 2345, Until Discontinued, Swallow whole. Do not crush, chew, or cut in half., Indication for anti-infective therapy: Chronic prophylaxis $ Given 03/22/2024 5:07 PM TARIFF COMPILING CLERK 300 mg $ Given 03/21/2024 4:51 PM TARIFF COMPILING CLERK 300 mg $ Given 03/20/2024 5:00 PM TARIFF COMPILING CLERK 300 mg potassium - sodium phosphates (Phos-Nak) [...] per packet $ Given 03/23/2024 11:20 AM TARIFF COMPILING CLERK 1 packe t $ Given 03/23/2024 8:51 AM TARIFF COMPILING CLERK 1 packet prochlorperazine (Compazine) injection 10 mg [...] Until Discontinued $ Given 03/23/2024 8:51 AM TARIFF COMPILING CLERK 17.2 mg $ Given 03/22/2024 8:38 AM TARIFF COMPILING CLERK 17.2 mg $ Given 03/21/2024 9:08 AM TARIFF COMPILING CLERK 17.2 mg senna (Senokot) tablet 8.6 mg 8.6 mg, Oral, DAILY, First dose on Mon03/15/24 at 2245, Until Discontinued $ Given 03/18/2024 9:06 AM TARIFF COMPILING CLERK 8.6 mg $ Given 03/17/2024 8:58 AM TARIFF COMPILING CLERK 8.6 mg $ Given 03/16/2024 8:56 AM TARIFF COMPILING CLERK 8.6 mg valACYclovir (Valtrex) tablet 500 mg 500 mg, Oral, 2 TIMES DAILY, First dose on Mon03/13/24 at 2345, Until Discontinued, Indication for anti-infective therapy: Chronic prophylaxis $ Given 03/23/2024 8:52 AM TARIFF COMPILING CLERK 500 mg $ Given 03/22/2024 8:30 PM TARIFF COMPILING CLERK 500 mg $ Given 03/22/2024 8:38 AM TARIFF COMPILING CLERK 500 mg venetoclax (Venclexta) tablet 100 mg 100 mg, Oral, DAILY WITH FOOD, First dose on Mon03/19/24 at 1800, Until Discontinued, Caution chemotherapy. Use proper handling technique. Swallow whole. Do not crush, chew, or cut in half. $ Given 03/23/2024 8:52 AM TARIFF COMPILING CLERK 100 mg $ Given 03/22/2024 8:40 AM TARIFF COMPILING CLERK 100 mg $ Given 03/21/2024 9:10 AM TARIFF COMPILING CLERK 100 mg documented in this encounter Active and Recently Administered Medications Times are shown in TARIFF COMPILING CLERK. Scheduled Medication Order 03/21/2024 03/22/2024 03/23/2024 0.9% [...] Gaurang Nurse) 0613 (Not Administered - Provider: Gaurang Graff Nurse - Reason: Patient sleeping)1230 (Canceled Entry - Provider: Zach Johnson RN)2030 ($ Given - Provider: Steffi Deluna RN) 0600 (Canceled Entry - Provider: Steffi Deluna RN)0853 ($ Given - Provider: Mey Jo RN) allopurinol (Zyloprim) tablet 300 mg 300 mg, Oral, DAILY AFTER BREAKFAST, First dose on Mon03/20/24 at 0915, Until Discontinued 09 ($ Given - Provider: Mey Jo RN) 0838 ($ Given - Provider: Zach Johnson, KEVIN) 0852 ($ Given - Provider: Mey Jo RN) apixaban (Eliquis) tablet 2.5 mg 2.5 mg, Oral, 2 TIMES DAILY, First dose (after last modification) on Mon03/16/24 at 2100, Until Discontinued 09 ($ Given - Provider: Mey Jo RN)2118 ($ Given - Provider: Gaurang Graff Nurse) 0838 ($ Given - Provider: Zach Johnson RN)2030 ($ Given - Provider: Steffi Deluna RN) [...] Johnson RN) 0853 ($ Given - Provider: eMy Jo RN) posaconazole (Noxafil) tablet 300 mg [...] 0908 ($ Given - Provider: Mey Jo RN)2117 ($ Given - Provider: Miriam Lu, Graduate [...] RN) 0840 ($ Given - Provider: Zach Johnson, KEVIN) 0852 ($ Given - Provider: Mey Jo RN) Continuous Medication Order 03/21/2024 03/22/2024 03/23/2024 lactated ringers infusion at 50 mL/hr, Intravenous, CONTINUOUS, Starting on Mon03/20/24 at 1000, Until 03/23/24 at 1456 0332 (Rate Change - Provider: Bassam Rodriguez RN)0335 (Rate Change - Provider: Bassam Rodriguez, KEVIN)0339 (Paused - Provider: Bassam Rodriguez, KEVIN)0346 (Paused - Provider: Bassam Rodriguez, KEVIN)0346 (Restarted - Provider: Bassam Rodriguez, KEVIN)0350 ($ New Bag/Syringe - Provider: La'Jamee R Michael, RN)0350 (Current Rate - Provider: Bassam Rodriguez RN)0351 (Current Rate - Provider: Bassam Rodriguez RN)0907 (Paused - Provider: Mey Jo RN)0907 (Rate Change - Provider: Mey Jo RN)0909 (Canceled Entry - Provider: Mey Jo RN)1651 ($ New Bag/Syringe - Provider: Mey Jo RN)2133 (Restarted - Provider: Miriam Lu, Graduate Nurse - Comment: initial channel no longer working) 1035 (Rate Change - Provider: Zach Johnson RN) 0647 ($ New Bag/Syringe - Provider: Steffi [...] patency. documented in this encounter Care Teams Customs Agent Relationship Specialty Start Date End Date Timothy Banks MD [address] [place] [address] PCP - General 10/19/18 documented as of this encounter
--- OUTSIDE RECORDS SUMMARY | 2024-04-11 13:51 | XMS_ITS | Encounter Summary ---
Author Organization [facility] Address [address] [facility] [place] [address] Care Team Providers Care Spring Layer Name Role Phone Timothy Banks MD Primary Care Provider [phone] Encounter Details Date Type Department Care Team (Late st Contact Info) Description 03/13/2024 Orders Only [facility] [address] [place] [phone] Sammie Hartman, PharmD Social History Tobacco Use Types Packs/Day [...] and heating? Not hard at all 03/13/2024 [facility] [place] - Occupational Stress [...] any time in the past 12 m [facility], were you homeless or living in a assisted (including now)? No 03/13/2024 Sex and Gender Information Value Date Recorded Sex Assigned at Male 03/05/2024 8:04 AM HEADMASTER/MISTRESS Gender Identity Male 03/05/2024 8:04 AM HEADMASTER/MISTRESS Sexual Orientation Straight 03/05/2024 8: 04 AM HEADMASTER/MISTRESS documented as of this encounter Plan of Treatment Upcoming Encounters Date Type Department Care Team (Late st Contact Info) Description 04/15/2024 8:30 AM HEADMASTER/MISTRESS Hospital Encounter [facility] [address] [place] [address] 04/16/2024 9:00 AM HEADMASTER/MISTRESS Hospital Encounter [facility] [address] [place] [address] 04/17/2024 8:30 AM HEADMASTER/MISTRESS Appointment [facility] [address] [place] [address] 04/18/2024 9:30 AM HEADMASTER/MISTRESS Appointment [facility] [address] [place] [address] 04/18/2024 10:30 AM HEADMASTER/MISTRESS Office Visit [facility] - Hematology/Oncology [address] [place] [phone] Cindy Garcia MD [address] [place] [address] 04/19/2024 9:00 AM HEADMASTER/MISTRESS Appointment [facility] [address] [place] [address] 05/13/2024 9:00 AM HEADMASTER/MISTRESS Appointment [facility] [address] [place] [address] 05/28/2024 10:00 AM HEADMASTER/MISTRESS Office Visit [facility] - Nephrology [address] [facility] ([place], [place]), [facility] [place] [address] Cindy Garcia MD [address] [place] [address] Santiago Meraz MD [address] [place] [address] documented as of this encounter Visit Diagnoses Not on filedocumented in this encounter Care Teams Spring Layer Relationship Specialty Start Date End Date Timothy Banks MD [address] [place] [phone] PCP - General 10/19/18 documented as of this encounter
--- OUTSIDE RECORDS SUMMARY | 2024-04-11 13:51 | XMS_ITS | Encounter Summary ---
Author Organization [facility] Address [address] [place] [address] Care Team Providers Care Small Piece Cutter Name Role Phone Timothy Banks MD Primary Care Provider [phone] Reason for Referral * (Routine) - Pending Review Specialty Diagnoses / Procedures Referred By Contac t Referred To Contact Diagnoses MDS (myelodysplastic syndrome) (HCC) Procedures BCR-ABL1 CML+AML PCR QUANT Cindy Patel MD [address] [place] [address] Referral ID Status Reason Start Date Expiration Date V isits Requested Visits Authorized [id number] Pending Review 03/04/2024 03/04/2025 1 1 ER SALES REP * (Routine) - Pending Review Specialty Diagnoses / Procedures Referred By Contac t Referred To Contact Diagnoses MDS (myelodysplastic syndrome) (HCC) Procedures BCR-ABL1 CML+AML PCR QUANT Cindy Patel MD [address] [place] [address] Referral ID Status Reason Start Date Expiration Date V isits Requested Visits Authorized [id number] Pending Review 03/04/2024 03/04/2025 1 1 ER SALES REP Reason for Visit * (Routine) - Pending Review Specialty Diagnoses / Procedures Referred By Contac t Referred To Contact Diagnoses MDS (myelodysplastic syndrome) (HCC) Procedures BCR-ABL1 CML+AML PCR QUANT PNL Cindy Garcia MD [address] [place] [address] Referral ID Status Reason Start Date Expiration Date V isits Requested Visits Authorized [id number] Pending Review 03/04/2024 03/04/2025 1 1 Encounter Details Date Type Department Care Team (Latest Contact Info) Description 03/04/2024 3:35 PM DEALER SALES REP - 03/04/2024 11:59 PM DEALER SALES REP Hospital Encounter [facility] [address] [place] [address], [address]nd [place] [address] Discharge Disposition: Home or Self Care Social History Tobacco Use Types Packs/Day Years Used Date Smoking Tobacco: Never Assessed Sex and Gender Information Value Date Recorded Sex Assigned at Male 03/05/2024 8:04 AM DEALER SALES REP Gender Identity Male 03/05/2024 8:04 AM DEALER SALES REP Sexual Orientation Straight 03/05/2024 8: 04 AM DEALER SALES REP documented as of this encounter Plan of Treatment Upcoming Encounters Date Type Department Care Team (Late st Contact Info) Description 04/15/2024 8:30 AM DEALER SALES REP Hospital Encounter [facility] [address] [place] [phone] 04/16/2024 9:00 AM DEALER SALES REP Hospital Encounter [facility] [address] [place] [phone] 04/17/2024 8:30 AM DEALER SALES REP Appointment [facility] [address] [place] [address] 04/18/2024 9:30 AM DEALER SALES REP Appointment [facility] [address] [place] [address] 04/18/2024 10:30 AM DEALER SALES REP Office Visit [facility] - Hematology/Oncology [address] [place] [phone] Cindy Garcia MD [address] [place] [phone] 04/19/2024 9:00 AM DEALER SALES REP Appointment [facility] [address] [place] [phone] 05/13/2024 9:00 AM DEALER SALES REP Appointment [facility] [address] [place] [address] 05/28/2024 10:00 AM DEALER SALES REP Office Visit [facility] - Nephrology [address] [facility], [place] [address] Cindy Garcia MD [address] [place] [address] Santiago Meraz MD [address] [place] [address] Pending Results Name Type Priority Associated Diagnoses Date /Time HLA TYPING DNA HIGH RES Blood Bank Routine MDS (myelodysplastic syndrome) ([facility]) 03/04/2024 4:13 PM DEALER SALES REP HLA TYPING DNA LOW RESOLUTION A,B,C Blood Bank Routine MDS (myelodysplastic syndrome) ([facility]) 03/04/2024 4:13 PM DEALER SALES REP HLA TYPING DNA LOW RESOLUTION DR,DQ Blood Bank Routine MDS (myelodysplastic syndrome) ([facility]) 03/04/2024 4:13 PM DEALER SALES REP HLA TYPING DNA HIGH RESOLUTION A Blood Bank Routine MDS (myelodysplastic syndrome) ([facility]) 03/04/2024 4:13 PM DEALER SALES REP HLA TYPING DNA HIGH RESOLUTION DQ Blood Bank Routine MDS (myelodysplastic syndrome) ([facility]) 03/04/2024 4:13 PM DEALER SALES REP HLA TYPING DNA HIGH RESOLUTION C Blood Bank Routine MDS (myelodysplastic syndrome) ([facility]) 03/04/2024 4:13 PM DEALER SALES REP HLA TYPING DNA HIGH RESOLUTION B Blood Bank Routine MDS (myelodysplastic syndrome) ([facility]) 03/04/2024 4:13 PM DEALER SALES REP HLA TYPING DNA HIGH RESOLUTION DR Blood Bank Routine MDS (myelodysplastic syndrome) ([facility]) 03/04/2024 4:13 PM DEALER SALES REP HLA TYPING LOW/HIGH RESOLUTION DPB1 Blood Bank Routine MDS (myelodysplastic syndrome) ([facility]) 03/04/2024 4:13 PM DEALER SALES REP Scheduled Orders Name Type Priority Associated Diagnoses Orde r Schedule HLA TYPING DNA HIGH RES Blood Bank Routine MDS (myelodysplastic syndrome) ([facility]) 1 Occurrences starting 03/05/2024 until 02/28/2025 HLA TYPING DNA HIGH RES Blood Bank Routine MDS (myelodysplastic syndrome) (HCC) 1 Occurrences starting 03/05/2024 until 03/05/2024 HLA TYPING DNA LOW RESOLUTION A,B,C Blood Bank Routine MDS (myelodysplastic syndrome) (HCC) [...] BM RFLX PML/DANTE Routine 03/04/2024 4:13 PM DEALER SALES REP MDS (myelodysplastic syndrome) ([facility]) FISH AML+MDS PANEL BLOOD OR BONE MARROW Routine 03/04/2024 4:13 PM DEALER SALES REP MDS (myelodysplastic syndrome) ([facility]) MYELOID MALIGNANCIES MUTATION PNL STAT 03/04/2024 4:13 PM DEALER SALES REP MDS (myelodysplastic syndrome) ([facility]) HIV-1 HIV-2 ANTIBODY + HIV P24 AG PANEL Routine 03/04/2024 4:13 PM DEALER SALES REP Neutropenia, unspecified type (HCC) FISH PML/DANTE PANEL Routine 03/04/2024 4 :13 PM DEALER SALES REP MDS (myelodysplastic syndrome) (HCC) BCR-ABL1 CML+AML PCR QUANT PNL Routine 03/04/2024 4:13 PM DEALER SALES REP MDS (myelodysplastic syndrome) (HCC) TSH REFLEX FREE T4 Routine 03/04/2024 4: 13 PM DEALER SALES REP Neutropenia, unspecified type (HCC) RHEUMATOID FACTOR BLOOD QUANTITATIVE Routine 03/04/2024 4:13 PM DEALER SALES REP Neutropenia, unspecified type (HCC) CYTOMEGALOVIRUS ANTIBODY IGG BLOOD Routine 03/04/2024 4:13 PM DEALER SALES REP MDS (myelodysplastic syndrome) (HCC) C-REACTIVE PROTEIN Routine 03/04/2024 4: 13 PM DEALER SALES REP Neutropenia, unspecified type (HCC) MARLINE BLOOD SCREEN W/REFLEX TITER Routine 03/04/2024 4:13 PM DEALER SALES REP Neutropenia, unspecified type (HCC) ZINC BLOOD Routine 03/04/2024 4:13 PM DEALER SALES REP Neutropenia, unspecified type (HCC) COPPER BLOOD Routine 03/04/2024 4:13 PM DEALER SALES REP Neutropenia, unspecified type (HCC) ERYTHROCYTE SEDIMENTATION RATE Routine 03/04/2024 4:13 PM DEALER SALES REP Neutropenia, unspecified type (HCC) DIFFERENTIAL MANUAL Routine 03/04/2024 4 :13 PM DEALER SALES REP Neutropenia, unspecified type (HCC) CBC W AUTO DIFFERENTIAL Routine 03/04/20 4:13 PM DEALER SALES REP Neutropenia, unspecified type (HCC) COMPREHENSIVE METABOLIC PANEL Routine 03/04/2024 4:13 PM DEALER SALES REP Neutropenia, unspecified type (HCC) HEPATITIS B SURFACE ANTIBODY Routine 03/04/2024 4:13 PM DEALER SALES REP Neutropenia, unspecified type (HCC) FOLATE Routine 03/04/2024 4:13 PM DEALER SALES REP Neutropenia, unspecified type (HCC) VITAMIN B12 Routine 03/04/2024 4:13 PM DEALER SALES REP Neutropenia, unspecified type (HCC) IRON + TRANSFERRIN PANEL Routine 03/04/2024 4:13 PM DEALER SALES REP Neutropenia, unspecified type (HCC) HEPATITIS C ANTIBODY Routine 03/04/2024 4:13 PM DEALER SALES REP Neutropenia, unspecified type (HCC) FERRITIN Routine 03/04/2024 4:13 PM DEALER SALES REP Neutropenia, unspecified type (HCC) documented in this encounter Results * FISH PML/DANTE PANEL (03/04/2024 4:13 PM DEALER SALES REP) EER PML/DANTE Translocation by Fish See Note 03/05/2024 6:44 PM DEALER SALES REP [email or web address] ([facility]) Comment: Authorized individuals can access the Veronica Enhanced Report using the following link: [email or web address] Performed By: [facility] [address] [place] [address] Refrigeration Systems Installer: Uche Morley MD, PhD CLIA Number: [id number] PML/DANTE Translocation by FISH See Note 03/05/2024 6:44 PM DEALER SALES REP [email or web address] ([facility]) Comment: Test Performed: PML-DANTE Translocation by FISH (FISH PML) Specimen Type: Peripheral Blood Indication for Testing: PML/DANTE RESULT Normal FISH Result t(15;17) PML::DANTE ??Fusion: ??not detected INTERPRETATION There was no evidence of PML::DANTE fusion due to translocation (15;17)(q24;q21). This analysis was performed with the PML/DANTE probes (Ortiz BostInno). A total of 200 cells were scored. Cytogenomic Nomenclature (ISCN): nuc nereyda(PML,DANTE)x2[200' ?? This result has been reviewed and approved by Alonso Proctor, PhD INTERPRETIVE INFORMATION: PML/DANTE Translocation by FISH This test was developed and its performance characteristics determined by [facility] [employer]. It has not been cleared or approved by the US Food and Drug Administration. This test was performed in a CLIA certified laboratory and is intended for clinical purposes. Other BLOOD SPECIMEN / Unknown Collection / Unknown 03/04/2024 4:13 PM DEALER SALES REP 03/04/2024 4:23 PM DEALER SALES REP Cindy Garcia MD LAB - PATHOLOGY/CYTO LOGY ORDERABLES [facility] ([facility]) [address] [place], [place] [address] * (ABNORMAL) DIFFERENTIAL MANUAL (03/04/2024 4:13 PM DEALER SALES REP) Neutrophil % 13(L) 41 - 74 % 03/04/2024 5:[address] [facility] Lymphocyte % 74(H) 17 - 47 % 03/04/2024 5:02 PM [facility] Monocyte % 7 3 - 11 % 03/04/2024 5:02 PM [facility] Eosinophil % 4 0 - 7 % 03/04/2024 5:02 PM [facility] Basophil % 2 0 - 2 % 03/04/2024 5:02 PM [facility] Neutrophil Absolute 0.13(L) 1.60 - 7.50 x10E9/L 03/04/2024 5:02 PM [facility] Lymphocyte Absolute 0.74(L) 1.00 - 4.40 x10E9/L 03/04/2024 5:02 PM [facility] Monocyte Absolute 0.07(L) 0.15 - 1.00 x10E9/L 03/04/2024 5:02 PM [facility] Eosinophil Absolute 0.04 0.00 - 0.60 x10E9/L 03/04/2024 5:02 PM [facility] Basophil Absolute 0.02 0.00 - 0.13 x10E9/L 03/04/2024 5:02 PM [facility] RBC Morphology REVIEWED 03/04/2024 5:02 PM [facility] Microcytosis MODERATE(A) (none) 03/04/2024 5:02 PM [facility] Schistocytes FEW(A) (none) 03/04/2024 5:02 PM [facility] Large Platelets PRESENT(A) (none) 5:02 PM [facility] Blood BLOOD SPECIMEN / Unknown Lab Venipuncture / Unknown 03/04/2024 4:13 PM DEALER SALES REP 03/04/2024 4:27 PM DEALER SALES REP Cindy Garcia MD LAB - HEMATOLOGY ORD ERABLES [address] [address], [facility] [phone] * MYELOID MALIGNANCIES MUTATION PNL (03/04/2024 4:13 PM DEALER SALES REP) Interpretation Myeloid Malignancy PNL See Note 03/15/2024 11:52 AM DEALER SALES REP [facility] ([facility]) Comment: Myeloid Malignancies Mutation Panel NGS Submitted diagnosis or diagnosis under consideration for variant interpretation: Myelodysplastic syndrome, unspecified (MDS unspec) TIER 1: Variants of Known Clinical Significance in Hematologic Malignancies 1. IDH1 c.394C>A, p.Fgb596Wgd ([id number]) VAF: 11.0% IDH1 encodes an enzyme that catalyzes the conversion of isocitrate to alpha-ketoglutarate in the citric acid cycle (14). Somatic mutations of IDH1 are found in 4-12% of patients with myelodysplastic syndrome (MDS) (9). Acquired IDH1 mutations mostly affect codon Qpn359 (8) (21) (11). This mutation has been reported in hematologic malignancies (4). The prognostic significance of mutated IDH1 in MDS is uncertain (13) (17) (5) (10) (12) (20). 2. DNMT3A c.2206C>T, p.Dte911Epd ([id number]) VAF: 9.0% DNMT3A encodes a DNA methyltransferase enzyme (22). Somatic mutations of DNMT3A are found in 3-20% of patients with MDS (15) (3) (16). In myeloid malignancies, acquired DNMT3A mutations are often missense mutations at codon Xkw283, frameshift, or nonsense mutations (15). This mutation has been reported in hematologic malignancies (4) (3). MDS patients with DNMT3A mutations are more likely to progress to secondary acute myeloid leukemia (AML) (6) (18) (19). Mutated DNMT3A is also associated with shorter overall survival in MDS patients after hematopoietic stem cell transplantation (2). 3. DNMT3A c.2407A>G, p.Bim322Pjs ([id number]) VAF: 8.3% This mutation has been reported in hematologic malignancies (3) (4). TIER 2: Variants of Unknown Clinical Significance in Hematologic Malignancies 1. CUX1 c.3085G>A, p.Txw3187Fzw ([id number]) VAF: 41.3% This variant has been rarely reported in hematologic malignancies (1) (7), to the best of our knowledge. References 1: Lynnette P, ??Emmanuelle B, ??Zhanna CLARK et al, Assessment of Minimal Residual Disease by Next Generation Sequencing in Peripheral Blood as a Complementary Tool for Personalized Transplant Monitoring in Myeloid Neoplasms. J Clin Med 2020. PMID:28792557 2: Virginie R, ??Juan KE, ??Ulises Kim et al, Somatic mutations predict poor outcome in patients with myelodysplastic syndrome after hematopoietic stem-cell transplantation. J Clin Oncol 2014. PMID:89835789 3: cBioPortal: http://www.cbioportal.org/ 4: COSMIC: https://cancer.vipin.ac.uk/cosmic 5: Jahaira GRAY, ??Kamla Estrada, ??Mary Mason et al, IDH1 and IDH2 mutations in myelodysplastic syndromes and role in disease progression. Leukemia 2016. PMID:43392252 6: Fried I, ??Day C, ??Lenin MURPHY et al, Frequency, onset and clinical impact of somatic DNMT3A mutations in therapy-related and secondary acute myeloid leukemia. Haematologica 2012. PMID:92182937 7: Cassandra Kim, ??Cornell M, ??Alexis Valdivia et al, DNA methylation epitypes highlight underlying developmental and disease pathways in acute myeloid leukemia. Genome Res 2020. PMID:[id number] 8: Karolyn S, ??Abena BACON, ??Jaziel MARTINEZ et al, Cancer-associated metabolite 2-hydroxyglutarate accumulates in acute myelogenous leukemia with isocitrate dehydrogenase 1 and 2 mutations. J Exp Med 2010. PMID:44628059 9: Im AP, ??Louie AR, ??Kervin FRAIRE et al, DNMT3A and IDH mutations in acute myeloid leukemia and other myeloid malignancies: associations with prognosis and potential treatment strategies. Leukemia 2014. PMID:[id number] 10: Jose J Broussard, ??Charity Barcenas, ??Grayson Stroud et al, Mutations of IDH1 and IDH2 genes in early and accelerated phases of myelodysplastic syndromes and MDS/myeloproliferative neoplasms. Leukemia 2010. 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 Clin Cancer Res 2019. PMID:[id number] 12: Papvaldommaalhajil E, ??Gerung M, ??Hugh Stroud et al, Clinical and biological implications of route salesman and driver mutations in myelodysplastic syndromes. Blood 2013. PMID:[id number] 13: Eileen MM, ??Rajinder CA, ??Juju OTERO et al, Differential prognostic effect of IDH1 versus IDH2 mutations in myelodysplastic syndromes: a [facility] study of 277 patients. Leukemia 2012. PMID:[id number] 14: Bulmaro BENTON, Josse H, Isocitrate dehydrogenase 1 and 2 mutations in cancer: alterations at a crossroads of cellular metabolism. J Natl Cancer Inst 2010. PMID:39685973 15: Jose Valdivia, ??Ivan Barcenas, ??Yudi U et al, [place]um analysis of DNMT3A mutations in hematological malignancies. Leukemia 2013. PMID:72997303 16: Kim LANZA, ??Miriam Broussard, ??Arnulfo REINOSO et al, The role of mutations in epigenetic regulators in myeloid malignancies. Yusra Rev Cancer 2012. PMID:01835865 17: Thol F, ??Weissluca EM, ??Sam Lynn et al, IDH1 mutations in patients with myelodysplastic syndromes are associated with an unfavorable prognosis. Haematologica 2010. PMID:86394557 18: Thol F, ??Lisa C, ??Bro Valdivia et al, Rare occurrence of DNMT3A mutations in myelodysplastic syndromes. Haematologica 2011. PMID:[id number] 19: Barrett MERRITT, ??Tono Stroud, ??Jossue Amador et al, Recurrent DNMT3A mutations in patients with myelodysplastic syndromes. Leukemia 2011. PMID:92376401 20: Cornell Flower, ??Sarabia F, ??Yuval Flower et al, IDH1 Mutation Is an Independent Inferior Prognostic Indicator for Patients with Myelodysplastic Syndromes. Acta Haematol 2017. PMID:[id number] 21: Reynaldo PS, ??Arnulfo Lynn, ??Bartolo GUIDO et al, The common feature of leukemia-associated IDH1 and IDH2 mutations is a neomorphic enzyme activity converting alpha-ketoglutarate to 2-hydroxyglutarate. Cancer Cell 2010. PMID:81991298 22: Ochoa L, Gabriella R, Hieu MA, DNMT3A in haematological malignancies. Yusra Rev Cancer 2015. PMID:24454083 This result has been reviewed and approved by Renetta Hanks M.D. Low coverage regions: Listed below are regions where the average sequencing depth (number of times a particular nucleotide is sequenced) in at least 20% of the rzeuxa-yp-ivintpol is less than our stringent cutoff of [...] NOTCH1; NPM1*; NRAS; NSD1; PHF6; PIGA; PPM1D; OFBW08W; PRPF8; PTPN11; RAD21; RUNX1; SAMD9; SAMD9L; SETBP1; [...] developed and its performance characteristics determined by [facility]. It has not been cleared or approved by the U.S. Food and Drug Administration. This test was performed in a CLIA-certified laboratory and is intended for clinical purposes. Myeloid Malignancy Dx Mds Unspec 03/15/2024 11:52 AM DEALER SALES REP [email or web address] ([facility]) Myeloid Malignancy Panel Specimen Whole Blood 03/15/2024 11:52 AM DEALER SALES REP [facility]) EER Myeloid Malignancy See Note 03/15/2024 11:52 AM DEALER SALES REP [facility]) Comment: Authorized individuals can access the [facility] Enhanced Report using the following link: [email or web address] Performed By: [place] [address] [employer]rigeration Systems Installer: Uche Morley MD, PhD CLIA Number: [id number] Other BLOOD SPECIMEN / Unknown Collection / Unknown 03/04/2024 4:13 PM DEALER SALES REP 03/04/2024 4:24 PM DEALER SALES REP Cindy Garcia MD LAB - PATHOLOGY/CYTO LOGY ORDERABLES [facility]) [address] * CYTOMEGALOVIRUS ANTIBODY IGG BLOOD (03/04/2024 4:13 PM DEALER SALES REP) Cytomegalovirus Antibody IgG <0.20 <=0.70 U/mL 03/05/2024 9:27 PM DEALER SALES REP [facility] ([facility]) Comment: INTERPRETIVE INFORMATION: Cytomegalovirus Antibody, IgG [...] laboratory at the same time. Performed By: [facility] [address] [place] [address] [employer]rigeration Systems Installer: Uche Morley MD, PhD CLIA Number: [id number] Blood BLOOD SPECIMEN / Unknown Lab Venipuncture / Unknown 03/04/2024 4:13 PM DEALER SALES REP 03/04/2024 4:23 PM DEALER SALES REP Cindy Garcia MD LAB - CHEMISTRY CHELI MONREAL Performing Organization Address [facility] Co de Phone Number [facility] ([facility]) [address] [place] [address] * HEPATITIS C ANTIBODY (03/04/2024 4:13 PM DEALER SALES REP) Hepatitis C Antibody Non-react carlos Non-reac tive 03/04/2024 5:12 PM DEALER SALES REP [facility] Comment:Hepatitis C Antibody screen indicates no serologic evidence of past or current infection with Hepatitis C Virus. Patients with unexplained liver disease who are immunocompromised or suspected of having acute Hepatitis C infection may benefit from Nucleic Acid Test (YUSRA) for Hepatitis C Viral RNA to confirm Hepatitis C status. Blood BLOOD SPECIMEN / Unknown Lab Venipuncture / Unknown 03/04/2024 4:13 PM DEALER SALES REP 03/04/2024 4:23 PM DEALER SALES REP Cindy Garcia MD LAB - CHEMISTRY CHELI MONREAL [facility] [address] [place] [address], [facility] [phone] * HEPATITIS B SURFACE ANTIBODY (03/04/2024 4:13 PM DEALER SALES REP) Hepatitis B Virus Surface Antibody Non-react carlos Non-react carlos 03/04/2024 5:12 PM DEALER SALES REP [facility] Comment: < 8 mIU/mL Hepatitis B surface Antibody (HBsAb). Nonreactive for HBsAb - individual is considered not immune to Hepatitis B Virus infection. Hepatitis B Surface Antibody Quantitative 0.3 <8.0 mIU/mL 03/04/2024 5:12 PM DEALER SALES REP [facility] Comment: Hepatitis B Surface Antibody Numeric Result Interpretation: ? Nonreactive: ?<8.0 mIU/mL ? Indeterminate: ??8.0 - 12.0 mIU/mL ? Reactive: ?>12.0 mIU/mL ? Blood BLOOD SPECIMEN / Unknown Lab Venipuncture / Unknown 03/04/2024 4:13 PM DEALER SALES REP 03/04/2024 4:23 PM DEALER SALES REP Cindy Garcia MD LAB - CHEMISTRY CHELI MONREAL Performing Organization Address City/[facility]/ZIP Co de Phone Number [address] [address], [place] [phone] * HIV-1 HIV-2 ANTIBODY + HIV P24 AG PANEL (New on 08/24) (03/04/2024 4:13 PM DEALER SALES REP) HIV Antigen/Antibod y 1 & 2 Non-reacti ve Non-react carlos 03/04/2024 5:12 PM DEALER SALES REP [facility] Comment:No Laboratory eviden ce of HIV infection. Blood BLOOD SPECIMEN / Unknown Lab Venipuncture / Unknown 03/04/2024 4:13 PM DEALER SALES REP 03/04/2024 4:23 PM DEALER SALES REP Cindy Garcia MD LAB - CHEMISTRY CHELI MONREAL [facility] [address] [place] [address], [place] [phone] * ERYTHROCYTE SEDIMENTATION RATE (03/04/2024 4:13 PM DEALER SALES REP) Erythrocyte Sedimentation Rate Westergren 14 0 - 20 MM/HR 03/04/2024 5:10 PM DEALER SALES REP [facility] Blood BLOOD SPECIMEN / Unknown Lab Venipuncture / Unknown 03/04/2024 4:13 PM DEALER SALES REP 03/04/2024 4:27 PM DEALER SALES REP Cindy Garcia MD LAB - HEMATOLOGY ORD HEMALATHA [address] [address], [place] [phone] * C-REACTIVE PROTEIN (03/04/2024 4:13 PM DEALER SALES REP) [facility] C-Reactive Protein 0.5 <=0.5 mg/dL 03/04/2024 4:56 PM DEALER SALES REP [facility] Blood BLOOD SPECIMEN / Unknown Lab Venipuncture / Unknown 03/04/2024 4:13 PM DEALER SALES REP 03/04/2024 4:27 PM DEALER SALES REP Cindy Garcia MD LAB - CHEMISTRY CHELI MONREAL Performing Organization Address City/[facility]/ZIP Co de Phone Number [address] [address], [place] [phone] * RHEUMATOID FACTOR BLOOD QUANTITATIVE (03/04/2024 4:13 PM DEALER SALES REP) [facility] Rheumatoid Factor <15 <30 IU/mL 03/04/2024 4:57 PM DEALER SALES REP [facility] Rheumatoid Factor Screen Negative Negative 03/04/2024 4:57 PM DEALER SALES REP [facility] Blood BLOOD SPECIMEN / Unknown Lab Venipuncture / Unknown 03/04/2024 4:13 PM DEALER SALES REP 03/04/2024 4:23 PM DEALER SALES REP Cindy Garcia MD LAB - CHEMISTRY CHELI MONREAL Performing Organization Address City/[facility]/ZIP Co de Phone Number [address] [address], [place] [phone] * MARLINE BLOOD SCREEN W/REFLEX TITER (03/04/2024 4:13 PM DEALER SALES REP) [facility] MARLINE IgG None Detected None Detected 03/05/2024 11:42 PM DEALER SALES REP [facility] ([facility]) Comment: If suspicion of connective tissue disease is strong and MARLINE EIA is negative, consider testing for MARLINE by IFA ([id number]). INTERPRETIVE INFORMATION: Anti-Nuclear Antibodies (MARLINE), IgG by TOÑA Antinuclear Antibodies (MARLINE), IgG by TOÑA: MARLINE specimens are screened using enzyme-linked immunosorbent assay (TOÑA) methodology. All TOÑA results reported as Detected are further tested by indirect fluorescent assay (IFA) using HEp-2 substrate with an IgG-specific conjugate. The MARLINE TOÑA screen is designed to detect antibodies against dsDNA, histones, SS-A (Ro), SS-B (La), Pimentel, Pimentel/FIRE PREVENTION BUREAU CAPTAIN, Scl-70, Mey-1, centromeric proteins, other antigens extracted from the HEp-2 cell nucleus. MARLINE TOÑA assays have been reported to have lower sensitivities than MARLINE IFA for systemic autoimmune rheumatic diseases (SARD). Negative results do not necessarily rule out SARD. Performed By: [facility] [address] [place] [address] [employer]rigeration Systems Installer: Uche Morley MD, PhD CLIA Number: [id number] Blood BLOOD SPECIMEN / Unknown Lab Venipuncture / Unknown 03/04/2024 4:13 PM DEALER SALES REP 03/04/2024 4:23 PM DEALER SALES REP Cindy Garcia MD LAB - CHEMISTRY CHELI MONREAL Performing Organization Address City/[facility]/ZIP Co de Phone Number [facility] ([facility]) [address] [place], [place] [address] * (ABNORMAL) FERRITIN (03/04/2024 4:13 PM DEALER SALES REP) Ferritin 21(L) 22 - 275 ng/mL 03/04/2024 5:12 PM DEALER SALES REP [facility] Blood BLOOD SPECIMEN / Unknown Lab Venipuncture / Unknown 03/04/2024 4:13 PM DEALER SALES REP 03/04/2024 4:23 PM DEALER SALES REP Cindy Garcia MD LAB - CHEMISTRY [place]LI [place] [id number] [place] [address], [place] [phone] * (ABNORMAL) IRON + TRANSFERRIN PANEL [w/Transferrin Sat % + TIBC] (03/04/2024 4:13 PM DEALER SALES REP) Iron 31(L) 50 - 175 ug/dL 03/04/2024 4:53 PM DEALER SALES REP [facility] Transferrin 257 174 - 382 mg/dL 03/04/2024 4:53 PM DEALER SALES REP [facility] Transferrin Saturation % 10(L) 16 - 50 % 03/04/2024 4:53 [address] [facility] TIBC Calculated 321 240 - 450 ug/dL 03/04/2024 4:53 PM DEALER SALES REP [facility] Blood BLOOD SPECIMEN / Unknown Lab Venipuncture / Unknown 03/04/2024 4:13 PM DEALER SALES REP 03/04/2024 4:23 PM DEALER SALES REP Cindy Garcia MD LAB - CHEMISTRY CHELI MONREAL Performing Organization Address City/[facility]/ZIP Co de Phone Number [address] [address], [facility] [phone] * TSH REFLEX FREE T4 (03/04/2024 4:13 PM DEALER SALES REP) TSH 0.961 0.350 - 4.940 uIU/mL 03/04/2024 5:29 PM DEALER SALES REP [facility] Blood BLOOD SPECIMEN / Unknown Lab Venipuncture / Unknown 03/04/2024 4:13 PM DEALER SALES REP 03/04/2024 4:27 PM DEALER SALES REP Cindy Garcia MD LAB - CHEMISTRY CHELI MONREAL [facility] [address] [place] [address], [place] [phone] * ZINC BLOOD (03/04/2024 4:13 PM DEALER SALES REP) Zinc 62.4 60.0 - 120.0 ug/dL 03/06/2024 6:35 AM DEALER SALES REP [employer]@ ([facility]) Comment: INTERPRETIVE INFORMATION: Zinc, Serum or [...] developed and its performance characteristics determined by [employer]. It has not been cleared or approved by the US Food and Drug Administration. This test was performed in a CLIA certified laboratory and is intended for clinical purposes. Performed By: [facility] [employer] [address] [place] [address] Refrigeration Systems Installer: Uche Morley MD, PhD CLIA Number: [id number] Blood BLOOD SPECIMEN / Unknown Lab Venipuncture / Unknown 03/04/2024 4:13 PM DEALER SALES REP 03/04/2024 4:23 PM DEALER SALES REP Cindy Garcia MD LAB - CHEMISTRY CHELI MONREAL [facility]) [address] [place] [address] * COPPER BLOOD (03/04/2024 4:13 PM DEALER SALES REP) [facility] Copper 108.5 70.0 - 140.0 ug/dL 03/06/2024 6:35 AM DEALER SALES REP [facility] ([facility]) Comment: INTERPRETIVE INFORMATION: Copper, Serum or [...] developed and its performance characteristics determined by [facility]. It has not been cleared or approved by the US Food and Drug Administration. This test was performed in a CLIA certified laboratory and is intended for clinical purposes. Performed By: [facility] [address] [place] [address] Refrigeration Systems Installer: Uche Morley MD, PhD CLIA Number: [id number] Blood BLOOD SPECIMEN / Unknown Lab Venipuncture / Unknown 03/04/2024 4:13 PM DEALER SALES REP 03/04/2024 4:23 PM DEALER SALES REP Cindy Garcia MD LAB - CHEMISTRY CHELI MONREAL Performing Organization Address City/[facility]/ZIP Co de Phone Number [facility]) [address] [place] [address] * FOLATE (03/04/2024 4:13 PM DEALER SALES REP) Folate 17.7 7.0 - 31.4 ng/mL 03/04/2024 5:29 PM DEALER SALES REP [facility] Blood BLOOD SPECIMEN / Unknown Lab Venipuncture / Unknown 03/04/2024 4:13 PM DEALER SALES REP 03/04/2024 4:27 PM DEALER SALES REP Cindy Garcia MD LAB - CHEMISTRY CHELI MONREAL Performing Organization Address [facility]/ZIP Co de Phone Number [address] [address], [facility] [phone] * VITAMIN B12 (03/04/2024 4:13 PM DEALER SALES REP) Vitamin B12 524 213 - 816 pg/mL 03/04/2024 5:29 PM DEALER SALES REP [facility] Blood BLOOD SPECIMEN / Unknown Lab Venipuncture / Unknown 03/04/2024 4:13 PM DEALER SALES REP 03/04/2024 4:27 PM DEALER SALES REP Cindy Garcia MD LAB - CHEMISTRY CHELI MONREAL Performing Organization Address City/[facility]/ZIP Co de Phone Number [address] [address], [facility] [phone] * (ABNORMAL) COMPREHENSIVE METABOLIC PANEL (03/04/2024 4:13 PM DEALER SALES REP) BUN 14 7 - 26 mg/dL 03/04/2024 4:56 PM [facility] Creatinine 1.10 0.71 - 1.16 mg/dL 03/04/2024 4:56 PM [facility] Sodium 141 136 - 145 mmol/L 03/04/2024 4:56 PM [facility] Potassium 4.2 3.5 - 4.5 mmol/L 03/04/2024 4:56 PM [facility] Chloride 110(H) 98 - 107 mmol/L 03/04/2024 4:56 PM [facility] CO2 26 22 - 29 mmol/L 03/04/2024 4:56 PM [facility] Glucose 121(H) 70 - 99 mg/dL 03/04/2024 4:56 PM [facility] Calcium 9.6 8.4 - 10.2 mg/dL 03/04/2024 4:56 PM [facility] Protein Total 7.1 6.0 - 8.3 g/dL 03/04/2024 4:56 PM [facility] Albumin 3.8 3.4 - 5.0 g/dL 03/04/2024 4:56 PM [facility] Bilirubin Total 0.4 0.2 - 1.2 mg/dL 03/04/2024 4:56 PM [facility] Alkaline Phosphatase 130 40 - 150 U/L 03/04/2024 4:56 PM [facility] ALT 17 5 - 55 U/L 03/04/2024 4:56 PM [facility] AST 14 5 - 34 U/L 03/04/2024 4:56 PM [facility] Anion Gap 5(L) 6 - 16 03/04/2024 4:56 PM [facility] BUN/Creatinine Ratio 13 7 - 23 03/04/2024 4:56 PM [facility] Osmolality Calculated 294 275 - 295 mOsm/kg 03/04/2024 4:56 PM [facility] Albumin/Globulin Ratio 1.2 1.1 - 2.3 03/04/2024 4:56 PM [facility] eGFR by CKD-EPI 68(L) >=90 mL/min/1.7 3 m2 03/04/2024 4:56 PM [facility] Blood BLOOD SPECIMEN / Unknown Lab Venipuncture / Unknown 03/04/2024 4:13 PM DEALER SALES REP 03/04/2024 4:27 PM DEALER SALES REP Cindy Gracia MD LAB - CHEMISTRY CHELI MONREAL [facility] [employer] [facility] [address] [place] [address], [facility] [phone] * (ABNORMAL) CBC W/ DIFFERENTIAL (03/04/2024 4:13 PM DEALER SALES REP) WBC 1.0(L) 4.0 - 10.7 x10E9/L 03/04/2024 5:03 PM [facility] RBC Count 4.39 4.30 - 5.80 x10E12/L 03/04/2024 5:03 PM [facility] Hemoglobin 12.5(L) 13.3 - 17.5 g/dL 03/04/2024 5:03 PM [facility] Hematocrit 38.8 38.7 - 51.1 % 03/04/2024 5:03 PM [facility] MCV 88.4 80.0 - 98.0 fL 03/04/2024 5:03 PM [facility] MCH 28.5 26.7 - 33.6 pg 03/04/2024 5:03 PM [facility] MCHC 32.2 31.7 - 36.3 g/dL 03/04/2024 5:03 PM [facility] RDW-CV 16.8(H) 11.3 - 14.8 % 03/04/2024 5:03 PM [facility] Platelet Count 110(L) 150 - 420 x10E9/L 03/04/2024 5:03 PM [facility] MPV 12.4(H) 7.8 - 11.4 fL 03/04/2024 5:03 PM [facility] Blood BLOOD SPECIMEN / Unknown Lab Venipuncture / Unknown 03/04/2024 4:13 PM DEALER SALES REP 03/04/2024 4:27 PM DEALER SALES REP Cindy Garcia MD LAB - HEMATOLOGY ORD HEMALATHA [facility] [address] [place] [address], [facility] [phone] * BCR-ABL1 CML+AML PCR QUANT PNL (03/04/2024 4:13 PM DEALER SALES REP) Interpretation TNP 03/13/2024 5:08 PM DEALER SALES REP [facility] ([facility]) Comment: Unable to obtain results. Repeated efforts to analyze this specimen have been unsuccessful. LOW CONTROL GENE COPY NUMBER INDICATED SPECIMEN DEGRADATION. Director Review Comment 5:08 PM DEALER SALES REP [facility] ([facility]) Comment: Dawood Sarabia, PhD, [facility] ?Director, Molecular Oncology ?[facility] ?[place] [address] ? Background Comment 03/13/2024 5:08 PM DEALER SALES REP [facility] ([facility]) Comment: This assay can detect three [...] as indicated. Methodology Comment 03/13/2024 5:08 PM DEALER SALES REP [facility] ([facility]) Comment: Total RNA is isolated from [...] developed and its performance characteristics determined by [employer]. It has not been cleared or approved by the Food and Drug Administration. Blood BLOOD SPECIMEN / Unknown Lab Venipuncture / Unknown 03/04/2024 4:13 PM DEALER SALES REP 03/04/2024 4:24 PM DEALER SALES REP Narrative [facility] ([facility]) - 03/13/2024 5:08 PM DEALER SALES REP Performed at: ??01 - [facility] [address] [place], [place] ??[id number] Mathematics Instructor: Cinthya Roper [facility], Phone: ??[phone] Performed at: ??02 - [facility] [address], [place] ??[id number] Mathematics Instructor: Cinthya Roper [facility], Phone: ??[phone] Cindy Garcia MD LAB - CHEMISTRY CHELI MONREAL [facility] ([facility]) [address] [place] [address] * FISH AML PANEL BLOOD OR BM RFLX PML/DANTE (03/04/2024 4:13 PM DEALER SALES REP) [facility] FISH AML Panel See Note Normal 03/07/2024 2:17 PM DEALER SALES REP [facility] [employer] ([facility]) Comment: Test Performed: Acute Myeloid Leukemia Panel by FISH (FISHAML) Specimen Type: Peripheral Blood Indication for Testing: AML panel RESULT Normal FISH Result inv(3) or t(3;3) GATA2::MECOM Fusion: ??not detected Deletion 5q: ??not detected Monosomy 7: ??not detected Deletion 7q: ??not detected t(8;21) RUNX1::MIYG7Z2 Fusion: ??not detected 11p15 (NUP98) Rearrangement: ??not detected 11q23 (KMT2A) Rearrangement: ??not detected inv(16) or t(16;16) CBFB::MYH11 Fusion: ??not detected INTERPRETATION There was no evidence of GATA2::MECOM (also known as RPN1-EVI1) fusion due to 3q21/3q26.2 inversion or translocation, deletion 5q31, monosomy 7, deletion 7q31, RUNX1::WYJX3H2 fusion due to translocation (8;21)(q21.3;q22), 11p15 (NUP98) rearrangement, 11q23 KMT2A (MLL) rearrangement, or CBFB::MYH11 fusion due to either 16p13.1/16q22 inversion or translocation. This analysis was performed with the AML panel probes RPN1/MECOM, D5S23/EGR1, D7Z1/C8E257, RUNX1/ZBQQ5G8 ([employer]), NUP98 and CBFB-MYH11 ([employer]), and MLL (KMT2A) ([employer]). A total of 200 cells were scored for each probe. Cytogenomic Nomenclature (ISCN): nuc nereyda(RPN1,MECOM,D5S23,EGR1,D7Z1,O5C136,GPLY8F8,NUP98,KMT2A,MYH11,CBF B,RUNX1)x2[200' This result has been reviewed and approved by Margaret Roberson, PhD, [facility] INTERPRETIVE INFORMATION: AML Panel by FISH This test was developed and its performance characteristics determined by [facility]. It has not been cleared or approved by the US Food and Drug Administration. This test was performed in a CLIA certified laboratory and is intended for clinical purposes. EER AML Panel by FISH See Note 03/07/2024 2:17 PM DEALER SALES REP [email or web address] ([facility]) Comment: Authorized individuals can access the Veronica Enhanced Report using the following link: [email or web address] Performed By: [facility] [address] [place] [address] Refrigeration Systems Installer: Uche Morley MD, PhD CLIA Number: [id number] Other BLOOD SPECIMEN / Unknown Collection / Unknown 03/04/2024 4:13 PM DEALER SALES REP 03/04/2024 4:23 PM DEALER SALES REP Cindy Garcia MD LAB - PATHOLOGY/CYTO LOGY ORDERABLES [email or web address] [facility]) [address] [place] [address], [facility] * FISH AML+MDS PANEL BLOOD OR BONE MARROW (03/04/2024 4:13 PM DEALER SALES REP) FISH AML with MDS, Therapy-Rltd AML See Note Normal 03/19/2024 4:32 PM DEALER SALES REP [email or web address] ([facility]) Comment: Test Performed: Acute Myelogenous Leukemia [...] with the Therapy-Related AML panel probes D5S23/EGR1, D7Z1/N4W858, and MLL (KMT2A) ([employer]). A total of 200 cells were scored for each probe. Cytogenomic Nomenclature (ISCN): nuc nereyda(D5S23,EGR1,D7Z1,G8Z706,KMT2A)x2[200' This result has been reviewed and approved by Charles Pablo MD, [facility] INTERPRETIVE INFORMATION: AML with MDS, Therapy-Related AML, FISH This test was developed and its performance characteristics determined by [facility]. It has not been cleared or approved by the US Food and Drug Administration. This test was performed in a CLIA certified laboratory and is intended for clinical purposes. EER AML with MDS, [employer] AML FISH See Note 03/19/2024 4:32 PM DEALER SALES REP [facility] [employer] ([facility]) Comment: Authorized individuals can access the Veronica Enhanced Report using the following link: [email or web address] Performed By: [facility] [address] [place] [address] Refrigeration Systems Installer: Uche Morley MD, PhD CLIA Number: [id number] Other BLOOD SPECIMEN / Unknown Collection / Unknown 03/04/2024 4:13 PM DEALER SALES REP 03/04/2024 4:23 PM DEALER SALES REP Cindy Garcia MD LAB - PATHOLOGY/CYTO LOGY ORDERABLES Performing Organization Address [facility]/State/ZIP Co de Phone Number [email or web address] ([facility]) [address] [place], [place] [address] documented in this encounter Visit Diagnoses Diagnosis MDS (myelodysplastic syndrome) (HCC)- Primary Myelodysplastic syndrome, unspecified Neutropenia, unspecified type (HCC) documented in this encounter Care Teams Small Piece Cutter Relationship Specialty Start Date End Date Timothy Banks MD [address] [place] [address] PCP - General 10/19/18 documented as of this encounter
--- OUTSIDE RECORDS SUMMARY | 2024-04-11 13:51 | XMS_ITS | Encounter Summary ---
Author Organization [facility] Address [address] [place] [address] Care Team Providers Care Health Information Tech Name Role Phone Timothy Banks MD Primary Care Provider [phone] Encounter Details Date Type Department Care Team (Late Contact Info) Description 03/04/2024 Orders Only [facility] [address] [place] [address] [place] [address] [place] [phone] MDS (myelodysplastic syndrome) (HCC) Social History Tobacco Use Types Packs/Day Years Used Date Smoking Tobacco: Never Assessed Sex and Gender Information Value Date Recorded Sex Assigned at Male 03/05/2024 8:04 AM PATIENT SUPPORT SPECIALIST Gender Identity Male 03/05/2024 8:04 AM PATIENT SUPPORT SPECIALIST Sexual Orientation Straight 03/05/2024 8: 04 AM PATIENT SUPPORT SPECIALIST documented as of this encounter Progress Notes * Cindy Garcia MD - 03/04/2024 3:22 PM CST karyoty ENT SUPPORT SPECIALIST documented in this encounter Plan of Treatment Upcoming Encounters Date Type Department Care Team (Late Contact Info) Description 04/15/2024 8:30 AM PATIENT SUPPORT SPECIALIST Hospital Encounter [facility] [address] [place] [phone] 04/16/2024 9:00 AM PATIENT SUPPORT SPECIALIST Hospital Encounter [facility] [address] [place] [phone] 04/17/2024 8:30 AM PATIENT SUPPORT SPECIALIST Appointment [facility] [address] [place] [phone] 04/18/2024 9:30 AM PATIENT SUPPORT SPECIALIST Appointment [facility] [address] [place] [phone] 04/18/2024 10:30 AM PATIENT SUPPORT SPECIALIST Office Visit [facility] - Hematology/Oncology [address] [place] [phone] Cindy Garcia MD [address] [place] [phone] 04/19/2024 9:00 AM PATIENT SUPPORT SPECIALIST Appointment [facility] [address] [place] [phone] 05/13/2024 9:00 AM PATIENT SUPPORT SPECIALIST Appointment [facility] [address] [place] [phone] 05/28/2024 10:00 AM PATIENT SUPPORT SPECIALIST Office Visit [facility] - Nephrology [address] [facility] [place] [address] Cindy Garcia MD [address] [place] [phone] Santiago Meraz MD [address] [place] [phone] Scheduled Orders Name Type Priority Associated Diagnoses Orde r Schedule CBC W/ DIFFERENTIAL Lab Routine MDS (myelodysplastic syndrome) ([facility]) 1 Occurrences starting 03/04/2024 until 03/29/2025 COMPREHENSIVE METABOLIC PANEL Lab Routine MDS (myelodysplastic syndrome) ([facility]) 1 Occurrences starting 03/04/2024 until 03/29/2025 VITAMIN B12 Lab Routine MDS (myelodysplastic syndrome) (HCC) 1 Occurrences starting 03/04/2024 until 03/29/2025 FOLATE Lab Routine MDS (myelodysplastic syndrome) ([facility]) 1 Occurrences starting 03/04/2024 until 03/29/2025 TSH REFLEX FREE T4 Lab Routine MDS (myelodysplastic syndrome) (HCC) 1 Occurrences starting 03/04/2024 until 02/27/2025 COPPER BLOOD Lab Routine MDS (myelodysplastic syndrome) (HCC) 1 Occurrences starting 03/04/2024 until 03/29/2025 ZINC [...] CYTOMEGALOVIRUS ANTIBODY IGG BLOOD (03/04/2024 4:13 PM PATIENT SUPPORT SPECIALIST) [facility] [address] Cytomegalovirus Antibody IgG <0.20 <=0.70 U/mL 03/05/2024 9:27 PM PATIENT SUPPORT SPECIALIST [facility] ([facility]) Comment: INTERPRETIVE INFORMATION: Cytomegalovirus Antibody, IgG ??0.59 [...] laboratory at the same time. Performed By: [employer] [address] [id number] Strategic Marketing Manager: Uche Morley MD, PhD CLIA Number: [id number] Blood BLOOD SPECIMEN / Unknown Lab Venipuncture / Unknown 03/04/2024 4:13 PM PATIENT SUPPORT SPECIALIST 03/04/2024 4:23 PM PATIENT SUPPORT SPECIALIST Cindy Garcia MD LAB - CHEMISTRY CHELI MONREAL [employer] ([facility]) [address] [place] [address], [facility] documented in this encounter Visit Diagnoses Diagnosis MDS (myelodysplastic syndrome) (HCC)- Primary Myelodysplastic syndrome, unspecified documented in this encounter Care Teams Health Information Tech Relationship Specialty Start Date End Date Timothy Banks MD [address] [place] [address] PCP - General 10/19/18 documented as of this encounter
--- OUTSIDE RECORDS SUMMARY | 2024-04-11 13:51 | XMS_ITS | Encounter Summary ---
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 HemPending sale to [facility] [address] [place] [address] Referral ID Status Reason Start Date Expiration Date V isits Requested Visits Authorized [id number] Pending Review 02/28/2024 02/27/2025 1 1 Encounter Details Date Type Department Care Team (Late st Contact Info) Description 03/04/2024 2:00 PM ACADEMIC DEAN Office Visit [facility] - Hematology/Oncology [address] [place] [address] Cindy Garcia MD [address] [place] [address] MDS (myelodysplastic syndrome) (HCC) (Primary [...] and heating? Not hard at all 03/13/2024 [facility] [place] [facility] - Occupational Stress [...] any time in the past 12 m [facility], were you homeless or living in a skilled nursing (including now)? No 03/13/2024 Sex and Gender Information Value Date Recorded Sex Assigned at Male 03/05/2024 8:04 AM ACADEMIC DEAN Gender Identity Male 03/05/2024 8:04 AM ACADEMIC DEAN Sexual Orientation Straight 03/05/2024 8: 04 AM ACADEMIC DEAN documented as of this encounter Last Filed Vital Signs Vital Sign Reading Time Taken Comments Blood Pressure 133/85 03/04/2024 1:29 PM ACADEMIC DEAN Pulse 81 03/04/2024 1:29 PM ACADEMIC DEAN Temperature 36.9 ??C (98.4 ??F) 03/04/2024 1:29 PM CS T Respiratory Rate 18 03/04/2024 1:29 PM ACADEMIC DEAN Oxygen Saturation 99% 03/04/2024 1:29 PM ACADEMIC DEAN Inhaled Oxygen Concentration - - Weight 100.2 kg (221 lb) 03/04/2024 1:29 PM ACADEMIC DEAN Height 181.4 cm (5' 11.42 ) 03/04/2024 1:[address] Body Mass Index 30.46 03/04/2024 1:29 PM ACADEMIC DEAN documented in this encounter Progress Notes * [...] -illicits: no -living situation: , lives in [place], [place] -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 Had been following at [facility] for neutropenia: no hx recurrent infections, [...] x2, Jak2, STAG2, BCOR x2, CEBPA, CUX2 EMIC DEAN documented in this encounter Plan of Treatment Upcoming Encounters Date Type Department Care Team (Late st Contact Info) Description 04/15/2024 8:30 AM ACADEMIC DEAN Hospital Encounter [facility] [address] [place] [address] 04/16/2024 9:00 AM ACADEMIC DEAN Hospital Encounter [facility] [address] [place] [address] 04/17/2024 8:30 AM ACADEMIC DEAN Appointment [facility] [address] [place] [address] 04/18/2024 9:30 AM ACADEMIC DEAN Appointment [facility] [address] [place] [address] 04/18/2024 10:30 AM ACADEMIC DEAN Office Visit [facility] - Hematology/Oncology [address] [place] [phone] Cindy Garcia MD [address] [place] [address] 04/19/2024 9:00 AM ACADEMIC DEAN Appointment [facility] [address] [place] [address] 05/13/2024 9:00 AM ACADEMIC DEAN Appointment [facility] [address] [place] [address] 05/28/2024 10:00 AM ACADEMIC DEAN Office Visit [facility] - Nephrology [address] [place] [address] [place] [address] Cindy Garcia MD [address] [place] [address] Santiago Meraz MD [facility] [place] [address] Scheduled Orders Name Type Priority Associated Diagnoses [...] 9,22 Pathology Cytology Routine MDS (myelodysplastic syndrome) ([facility]) 1 Occurrences starting 03/04/2024 until 04/03/2025 FISH AML+MDS PANEL Pathology Cytology Routine MDS (myelodysplastic syndrome) ([facility]) 1 Occurrences starting 03/04/2024 until 04/03/2025 FISH AML PANEL Pathology Cytology Routine MDS (myelodysplastic syndrome) ([facility]) 1 Occurrences starting 03/04/2024 until 04/03/2025 MYELOID MALIGNANCIES MUTATION PNL Pathology Cytology STAT MDS (myelodysplastic syndrome) ([facility]) 1 Occurrences starting 03/04/2024 until 03/29/2025 documented as of this encounter Results * MYELOID MALIGNANCIES MUTATION PNL (03/04/2024 4:13 PM ACADEMIC DEAN) Interpretation Myeloid Malignancy PNL See Note 03/15/2024 11:52 AM ACADEMIC DEAN [facility] ([facility]) Comment: Myeloid Malignancies Mutation Panel NGS Submitted diagnosis or diagnosis under consideration for variant interpretation: Myelodysplastic syndrome, unspecified (MDS unspec) TIER 1: Variants of Known Clinical Significance in Hematologic Malignancies 1. IDH1 c.394C>A, p.Zqn767Qox ([id number]) VAF: 11.0% IDH1 encodes an enzyme that catalyzes the conversion of isocitrate to alpha-ketoglutarate in the citric acid cycle (14). Somatic mutations of IDH1 are found in 4-12% of patients with myelodysplastic syndrome (MDS) (9). Acquired IDH1 mutations mostly affect codon Yfa265 (8) (21) (11). This mutation has been reported in hematologic malignancies (4). The prognostic significance of mutated IDH1 in MDS is uncertain (13) (17) (5) (10) (12) (20). 2. DNMT3A c.2206C>T, p.Tie638Xaq ([id number]) VAF: 9.0% DNMT3A encodes a DNA methyltransferase enzyme (22). Somatic mutations of DNMT3A are found in 3-20% of patients with MDS (15) (3) (16). In myeloid malignancies, acquired DNMT3A mutations are often missense mutations at codon Jhe246, frameshift, or nonsense mutations (15). This mutation has been reported in hematologic malignancies (4) (3). MDS patients with DNMT3A mutations are more likely to progress to secondary acute myeloid leukemia (AML) (6) (18) (19). Mutated DNMT3A is also associated with shorter overall survival in MDS patients after hematopoietic stem cell transplantation (2). 3. DNMT3A c.2407A>G, p.Ntb948Iiy ([id number]) VAF: 8.3% This mutation has been reported in hematologic malignancies (3) (4). TIER 2: Variants of Unknown Clinical Significance in Hematologic Malignancies 1. CUX1 c.3085G>A, p.Xfd4924Anu ([id number]) VAF: 41.3% This variant has been rarely reported in hematologic malignancies (1) (7), to the best of our knowledge. References 1: Lynnette P, ??Emmanuelle B, ??Zhanna CLARK et al, Assessment of Minimal Residual Disease by Next Generation Sequencing in Peripheral Blood as a Complementary Tool for Personalized Transplant Monitoring in Myeloid Neoplasms. J Clin Med 2020. PMID:[id number] 2: Virginie R, ??Juan HERNANDEZ, ??Ulises Kim et al, Somatic mutations predict poor outcome in patients with myelodysplastic syndrome after hematopoietic stem-cell transplantation. J Clin Oncol 2014. PMID:48657561 3: cBioPortal: http://www.cbioportal.org/ 4: COSMIC: https://cancer.vipin.ac.uk/cosmic 5: Jahaira GRAY, ??Kamla Estrada, ??Mary Mason et al, IDH1 and IDH2 mutations in myelodysplastic syndromes and role in disease progression. Leukemia 2016. PMID:26370670 6: Asiya I, ??Day Rubin, ??Lenin MURPHY et al, Frequency, onset and clinical impact of somatic DNMT3A mutations in therapy-related and secondary acute myeloid leukemia. Haematologica 2012. PMID:25474568 7: Cassandra Kim, ??Cornell Payne, ??Alexis Valdivia et al, DNA methylation epitypes highlight underlying developmental and disease pathways in acute myeloid leukemia. Genome Res 2020. PMID:15993737 8: Gross S, ??Abena RA, ??Jaziel MARTINEZ et al, Cancer-associated metabolite 2-hydroxyglutarate accumulates in acute myelogenous leukemia with isocitrate dehydrogenase 1 and 2 mutations. J Exp Med 2010. PMID:16511012 9: Im AP, ??Louie AR, ??Kervin FRAIRE et al, DNMT3A and IDH mutations in acute myeloid leukemia and other myeloid malignancies: associations with prognosis and potential treatment strategies. Leukemia 2014. PMID:33372148 10: Jose J O, ??Charity Barcenas, ??Grayson Stroud et al, Mutations of IDH1 and IDH2 genes in early and accelerated phases of myelodysplastic syndromes and MDS/myeloproliferative neoplasms. Leukemia 2010. PMID:27556648 11: Gala KJ, ??Juan L, ??Janes V et al, FDA Approval Summary: Ivosidenib for Relapsed or Refractory Acute Myeloid Leukemia with an Isocitrate Dehydrogenase-1 Mutation. Clin Cancer Res 2019. PMID:62445762 12: Papaemmaelleuil E, ??Gerstung M, ??Abrahamcoprimitivoti L et al, Clinical and biological implications of limo driver mutations in myelodysplastic syndromes. Blood 2013. PMID:41223115 13: Eileen MM, ??Rajinder CHRISTY, ??Juju OTERO et al, Differential prognostic effect of IDH1 versus IDH2 mutations in myelodysplastic syndromes: a [facility] study of 277 patients. Leukemia 2012. PMID:91565400 14: Bulmaro BENTON, Josse H, Isocitrate dehydrogenase 1 and 2 mutations in cancer: alterations at a crossroads of cellular metabolism. J Natl Cancer Inst 2010. PMID:94644468 15: Jose Valdivia, ??Ivan V, ??Yudi U et al, [place] analysis of DNMT3A mutations in hematological malignancies. Leukemia 2013. PMID:34379570 16: Kim LANZA, ??Miriam Broussard, ??Arnulfo REINOSO et al, The role of mutations in epigenetic regulators in myeloid malignancies. Bharti Rev Cancer 2012. PMID:29786954 17: Thol F, ??Roverto EM, ??Sam Lynn et al, IDH1 mutations in patients with myelodysplastic syndromes are associated with an unfavorable prognosis. Haematologica 2010. PMID:63331625 18: Thol F, ??Lisa Rubin, ??Bro Valdivia et al, Rare occurrence of DNMT3A mutations in myelodysplastic syndromes. Haematologica 2011. PMID:[id number] 19: Barrett MERRITT, ??Tono Stroud, ??Jossue Amador et al, Recurrent DNMT3A mutations in patients with myelodysplastic syndromes. Leukemia 2011. PMID:[id number] 20: Cornell Flower, ??Cornell F, ??Yuval Flower et al, IDH1 Mutation Is an Independent Inferior Prognostic Indicator for Patients with Myelodysplastic Syndromes. Acta Haematol 2017. PMID:[id number] 21: Reynaldo HERNANDEZ, ??Arnulfo Lynn, ??Bartolo GUIDO et al, The common feature of leukemia-associated IDH1 and IDH2 mutations is a neomorphic enzyme activity converting alpha-ketoglutarate to 2-hydroxyglutarate. Cancer Cell 2010. PMID:[id number] 22: Ochoa L, Gabriella R, Hieu ALBERTS, DNMT3A in haematological malignancies. Bharti Rev Cancer 2015. PMID:64194929 This result has been reviewed and approved by Renetta Hanks M.D. Low coverage regions: Listed below are regions where the average sequencing depth (number of times a particular nucleotide is sequenced) in at least 20% of the wvucav-ub-nsyxmija is less than our stringent cutoff of [...] NOTCH1; NPM1*; NRAS; NSD1; PHF6; PIGA; PPM1D; BZBH20Y; PRPF8; PTPN11; RAD21; RUNX1; SAMD9; SAMD9L; SETBP1; [...] developed and its performance characteristics determined by [facility]. It has not been cleared or approved by the U.S. Food and Drug Administration. This test was performed in a CLIA-certified laboratory and is intended for clinical purposes. Myeloid Malignancy Dx Mds Unspec 03/15/2024 11:52 AM [facility] ([facility]) Myeloid Malignancy Panel Specimen Whole Blood 03/15/2024 11:52 AM [facility] ([facility]) EER Myeloid Malignancy See Note 03/15/2024 11:52 AM ACADEMIC DEAN [facility] ([facility]) Comment: Authorized individuals can access the [facility] Enhanced Report using the following link: [email or web address] Performed By: [facility] [address] [id number] Auto Salvage Worker: Uche Morley MD, PhD CLIA Number: [id number] Other BLOOD SPECIMEN / Unknown Collection / Unknown 03/04/2024 4:13 PM ACADEMIC DEAN 03/04/2024 4:24 PM ACADEMIC DEAN Cindy Garcia MD LAB - PATHOLOGY/CYTO LOGY ORDERABLES [facility] ([facility]) [address] [id number], [facility] documented in this encounter Visit Diagnoses Diagnosis MDS (myelodysplastic syndrome) (HCC)- Primary Myelodysplastic syndrome, unspecified documented in this encounter Care Teams Aviation Electrician Relationship Specialty Start Date End Date Timothy Banks MD [address] [place] [id number] PCP - General 10/19/18 Cindy Garcia MD [address] [place] [address] Fire Sprinkler Apparatus Inspector/Oncologis t Hematology and Oncology 03/24/24 documented as of this encounter
--- OUTSIDE RECORDS SUMMARY | 2024-04-11 13:53 | XMS_ITS | Encounter Summary ---
Author Organization [facility] Address [address] [place] [address] Phone Care Team Providers Care Card Hand Name Role Phone Timothy Banks MD Primary Care Provider [phone] Encounter Details Date Type Department Care Team (Late st Contact Info) Description 05/24/2021 9:30 AM BASIC SCIENCES PROFESSOR Office Visit [facility] and Hypertension [address] [place] [address], [address] [place] [address] Yaron Roach MD [address] [facility], [address] [place] [address] Obstructive sleep apnea syndrome (Primary Dx); Stage [...] Comments Blood Pressure 126/70 05/24/2021 9:36 AM BASIC SCIENCES PROFESSOR Pulse 72 05/24/2021 9:36 AM BASIC SCIENCES PROFESSOR Temperature 35.4 ??C (95.8 ??F) 05/24/2021 9:36 AM CS T Respiratory Rate - - Oxygen Saturation - - Inhaled Oxygen Concentration - - Weight 116 kg (256 lb) 05/24/2021 9:36 AM BASIC SCIENCES PROFESSOR Height 188 cm (6' 2 ) 05/24/2021 9:36 AM BASIC SCIENCES PROFESSOR Body Mass Index 32.87 05/24/2021 9:36 AM BASIC SCIENCES PROFESSOR documented in this encounter Progress Notes * [...] had been seen by [facility] Laws at [facility] for years and was told that the [...] too high. he should lose weight. consider sales team recruiter or seeing PCP. He is on a [...] 11/16/2021 10:13 AM CDT Performed at: ??[address] ??[id number] Price Clerk: Francisco Javier Stewart PhD, Phone: ??[phone] Yaron Roach MD LAB URINE ORDERABLES [facility] [...] 10:13 AM CDT Performed at: ??[address] [facility] [address], [place], [place] ??[id number] Price Clerk: Francisco Javier Stewart PhD, Phone: ??[phone] Yaron Roach MD LAB BLOOD ORDERABLES [facility] documented in this encounter Visit Diagnoses Diagnosis Obstructive sleep apnea syndrome- Primary Stage 3a chronic kidney disease (CMS-HCC) Edema of lower extremity documented in this encounter Care Teams Card Hand Relationship Specialty Start Date End Date Timothy Banks MD [address] [place] [address] PCP - General Family Medicine 11/14/18 documented as of this encounter
--- OUTSIDE RECORDS SUMMARY | 2024-04-11 13:53 | XMS_ITS | Encounter Summary ---
Author Organization [facility] Address [address] [place] [address] Phone Care Team Providers Care Gut Cleaner Name Role Phone Timothy Banks MD Primary Care Provider [phone] Encounter Details Date Type Department Care Team (Late st Contact Info) Description 11/11/2020 9:30 AM CDT Office Visit [facility] Nephrology and Hypertension [address] [place] [address], [address] [place] [address] Yaron Roach MD [address] [facility], [address] [place] [address] Obstructive sleep apnea syndrome (Primary Dx); Stage [...] had been seen by Dr Laws at [place] for years and was told that the [...] too high. he should lose weight. consider arranger assembler or seeing PCP. He is on a PPI. This medicine has been correlated with CKD but has not been proven to cause it. Butwith all meds, if he doens't need it he shouldn't take it. 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 he sees Dr Ramirez. Leave on PPI for now unless Dr Fedder says it is okay. [facility] [place] Plan drink plenty of fluid Lose weight [...] CREATININE, URINE, RANDOM Routine 05/18/2021 6:40 AM TUNGSTEN REFINER Stage 3a chronic kidney disease ([facility]-HCC) CBC (INCLUDES DIFFERENTIAL/PLATEL ETS) Routine 05/18/2021 6:40 AM TUNGSTEN REFINER Stage 3a chronic kidney disease (CMS-HCC) RENAL FUNCTION PANEL (RFP) Routine 05/18/2021 6:40 AM TUNGSTEN REFINER Stage 3a chronic kidney disease (CMS-HCC) PTH INTACT W/O CALCIUM, SERUM Routine 05/18/2021 6:40 AM TUNGSTEN REFINER Stage 3a chronic kidney disease (CMS-HCC) documented in this encounter Results * Total Protein w/ Creatinine, Urine, Random (05/18/2021 6:40 AM TUNGSTEN REFINER) Creatinine, Urine 99.1 Not Estab. mg/dL [facility] 1 Protein, Urine 5.8 Not Estab. mg/dL [facility] 1 Protein/Creatin ine, Urine 59 0 - 200 mg/g creat [facility] 1 05/18/2021 6:40 AM TUNGSTEN REFINER 05/17/2021 11:00 PM TUNGSTEN REFINER Narrative [facility] - 05/19/2021 3:35 PM TUNGSTEN REFINER Performed at: ??01 - [facility] ??[id number] Woods Warden: Francisco Javier Stewart PhD, Phone: ??[phone] Yaron Roach MD LAB URINE ORDERABLES [facility] 1 * (ABNORMAL) Renal Function Panel (RFP) (05/18/2021 6:40 AM TUNGSTEN REFINER) Pathologist [facility] Glucose, Serum/Plasma 119(H) 65 - 99 mg/dL [facility] 1 Urea nitrogen, Serum/Plasma (BUN) 14 8 - 27 mg/dL [facility] 1 Creatinine, Serum/Plasma 1.35(H) 0.76 - 1.27 mg/dL [facility] 1 eGFR, non 51(L) >59 mL/min/1. 73 [facility] 1 eGFR, 59(L) >59 mL/min/1. 73 [facility] 1 Comment: In accordance with recommendations from the NKF-ASN Task force, [facility] is in the process of [facility] its [...] g/dL [facility] 1 Blood 05/18/2021 6:40 AM TUNGSTEN REFINER 05/17/2021 11:00 PM TUNGSTEN REFINER Narrative [facility] - 05/19/2021 3:35 PM TUNGSTEN REFINER Performed at: ??01 - [facility] [address] ??[id number] Woods Warden: Francisco Javier Stewart PhD, Phone: ??[phone] Yaron Roach MD LAB BLOOD ORDERABLES [facility] 1 * PTH Intact w/o Calcium, Serum (05/18/2021 6:40 AM TUNGSTEN REFINER) PTH, Intact, Serum/Plasma 39 15 - 65 [...] . [facility] 2 Blood 05/18/2021 6:40 AM TUNGSTEN REFINER 05/17/2021 11:00 PM TUNGSTEN REFINER Narrative [facility] - 05/19/2021 3:35 PM TUNGSTEN REFINER Performed at: ??01 - [facility] [address], [place], [place] ??[id number] Woods Warden: Francisco Javier Stewart PhD, Phone: ??[phone] Performed at: ??02 - [facility] [address] [place], [place] ??[id number] Woods Warden: Cinthya Roper [facility], Phone: ??[phone] Yaron Roach MD LAB BLOOD ORDERABLES [facility] 1 [facility] 2 * (ABNORMAL) CBC (includes Differential/Platelets) (05/18/2021 6:40 AM TUNGSTEN REFINER) Pathologist [facility] Leukocytes, Blood 4.2 3.4 - 10.8 x10E3/uL [...] x10E3/uL [facility] 1 Blood 05/18/2021 6:40 AM TUNGSTEN REFINER 05/17/2021 11:00 PM TUNGSTEN REFINER Narrative [facility] - 05/19/2021 3:35 PM TUNGSTEN REFINER Performed at: ??01 - [facility] [address] ??[id number] Woods Warden: Francisco Javier Stewart PhD, Phone: ??[phone] Yaron Roach MD LAB BLOOD ORDERABLES [facility] 1 documented in this encounter Visit Diagnoses Diagnosis Obstructive sleep apnea syndrome- Primary Stage 3a chronic kidney disease (CMS-HCC) Edema of lower extremity documented in this encounter Care Teams Gut Cleaner Relationship Specialty Start Date End Date Timothy Banks MD [address] [place] [address] PCP - General Family Medicine 11/14/18 documented as of this encounter
--- OUTSIDE RECORDS SUMMARY | 2024-04-11 13:53 | XMS_ITS | Clinical Summary ---
Author Organization [facility] Address [address] [place] [address] Phone Care Team Providers Care Cold Roll Catcher Name Role Phone Timothy Banks MD Primary Care Provider [phone] Allergies No known active allergies Medications Medication [...] Highest Risk Completed 09/17/2018, 08/27/2015 Care Teams Cold Roll Catcher Relationship Specialty Start Date End Date Timothy Banks MD [address] [place] [id number] PCP - General Family Medicine 11/14/18
--- OUTSIDE RECORDS SUMMARY | 2024-04-11 13:53 | XMS_ITS | Encounter Summary ---
Author Organization [facility] Berta utiizzy Address [address] [place] [address] Phone Care Team Providers Care Hydrographer Name Role Phone Timothy Banks MD Primary Care Provider [phone] Encounter Details Date Type Department Care Team (Late st Contact Info) Description 11/13/2019 10:00 AM CDT Office Visit [facility] Nephrology and Hypertension [address] [place] [address], [address] [place] [address] Yaron Roach MD [address] [facility], [address] [place] [address] Obstructive sleep apnea syndrome (Primary Dx); Hypertensive [...] had been seen by Dr Laws at [facility] for years and was told that the [...] too high. he should lose weight. consider orchard hand or seeing PCP. he had the pneumonia [...] it is okay. [facility]. Patient has a living will/DPOA. The person whom this patient designates as the decision maker if the patient cannot make one is his Plan drink plenty of fluid Lose weight RTC 6 months Diagnoses and all orders for this visit: Obstructive sleep apnea syndrome - Lipid Panel; Future Hypertensive left ventricular hypertrophy - Lipid Panel; Future Chronic kidney disease, stage 3 (moderate) [place] - CBC (includes Differential/Platelets); Future - Lipid [...] Routine Chronic kidney disease, stage 3 (moderate) [place] 1 Occurrences starting 11/13/2019 until 11/12/2020 documented as of this encounter Procedures Procedure Name Priority Date/Time Associated Diagnosis Comments VITAMIN D, 25-HYDROXY, SERUM Routine 04/30/2020 6:09 AM SELF CONTAINED BEHAVIOR UNIT TEACHER Chronic kidney disease, stage 3 (moderate) CBC (INCLUDES DIFFERENTIAL/PLATEL ETS) Routine 04/30/2020 6:09 AM SELF CONTAINED BEHAVIOR UNIT TEACHER Chronic kidney disease, stage 3 (moderate) RENAL FUNCTION PANEL (RFP) Routine 04/30/2020 6:09 AM SELF CONTAINED BEHAVIOR UNIT TEACHER Chronic kidney disease, stage 3 (moderate) LIPID PANEL Routine 04/30/2020 6:09 AM SELF CONTAINED BEHAVIOR UNIT TEACHER Obstructive sleep apnea syndrome Hypertensive left ventricular hypertrophy Chronic kidney disease, stage 3 (moderate) PTH INTACT W/O CALCIUM, SERUM Routine 04/30/2020 6:09 AM SELF CONTAINED BEHAVIOR UNIT TEACHER Chronic kidney disease, stage 3 (moderate) documented in this encounter Results * Vitamin D, 25-Hydroxy, Serum (04/30/2020 6:09 AM SELF CONTAINED BEHAVIOR UNIT TEACHER) 25-Hydroxyvitami n D2+25-Hydroxyvit bautista D3, Serum/Plasma 31.0 30.0 - 100.0 ng/mL [facility] 1 Comment: Vitamin D deficiency has been defined by the [place] of Medicine and an Endocrine Society practice guideline as a level of serum 25-OH vitamin D less than 20 ng/mL (1,2). The Endocrine Society went on to further define vitamin D insufficiency as a level between 21 and 29 ng/mL (2). 1. IOM ([place] of Medicine). 2010. Dietary reference ?? intakes for calcium and D. Javier [place]: The ?? National [employer] Press. 2. Imtiaz MF, Abiel NC, Luc MCKAY, et al. ?? Evaluation, treatment, and prevention of vitamin D ?? deficiency: an Endocrine Society clinical practice ?? guideline. JCEM. 2010; 96(7):1911-30. 04/30/2020 6:0 9 AM SELF CONTAINED BEHAVIOR UNIT TEACHER 04/29/2020 11:00 PM SELF CONTAINED BEHAVIOR UNIT TEACHER Narrative [facility] - 05/01/2020 1:35 PM SELF CONTAINED BEHAVIOR UNIT TEACHER Performed at: ??01 - [facility] [address] ??[id number] Buffet Attendant: Francisco Javier Stewart PhD, Phone: ??[phone] Yaron Roach MD LAB BLOOD ORDERABLES [facility] * (ABNORMAL) Renal Function Panel (RFP) (04/30/2020 6:09 AM SELF CONTAINED BEHAVIOR UNIT TEACHER) Glucose, Serum/Plasma 110(H) 65 - 99 mg/dL [...] g/dL [facility] 1 Blood 04/30/2020 6:09 AM SELF CONTAINED BEHAVIOR UNIT TEACHER 04/29/2020 11:00 PM SELF CONTAINED BEHAVIOR UNIT TEACHER Narrative [facility] - 05/01/2020 1:35 PM SELF CONTAINED BEHAVIOR UNIT TEACHER Performed at: ??01 - [facility] [address], [place], [place] ??[id number] Buffet Attendant: Francisco Javier Stewart PhD, Phone: ??[phone] Yaron Roach MD LAB BLOOD ORDERABLES [facility] * PTH Intact w/o Calcium, Serum (04/30/2020 6:09 AM SELF CONTAINED BEHAVIOR UNIT TEACHER) PTH, Intact, Serum/Plasma 36 15 - 65 [...] . [facility] 2 Blood 04/30/2020 6:09 AM SELF CONTAINED BEHAVIOR UNIT TEACHER 04/29/2020 11:00 PM SELF CONTAINED BEHAVIOR UNIT TEACHER Narrative [facility] - 05/01/2020 1:35 PM SELF CONTAINED BEHAVIOR UNIT TEACHER Performed at: ??01 - [facility] [address] ??[id number] Buffet Attendant: Francisco Javier Stewart PhD, Phone: ??[phone] Performed at: ??02 - [facility] [address] [place], [place] ??[id number] Buffet Attendant: Cinthya Roper [facility], Phone: ??[phone] Yaron Roach MD LAB BLOOD ORDERABLES [facility] 1 [facility] 2 * Lipid Panel (04/30/2020 6:09 AM SELF CONTAINED BEHAVIOR UNIT TEACHER) Cholesterol, Serum/Plasma 141 100 - 199 mg/dL [facility] 1 Triglyceride, Serum/Plasma 99 0 - 149 mg/dL [facility] 1 Cholesterol, HDL, Serum/Plasma 40 >39 mg/dL [facility] 1 VLDL-CHOL(CALC) 19 5 - 40 mg/dL [facility] 1 LDL Cholesterol, CALC 82 0 - 99 mg/dL [facility] 1 Blood 04/30/2020 6:09 AM SELF CONTAINED BEHAVIOR UNIT TEACHER 04/29/2020 11:00 PM SELF CONTAINED BEHAVIOR UNIT TEACHER Narrative [facility] - 05/01/2020 1:35 PM SELF CONTAINED BEHAVIOR UNIT TEACHER Performed at: ??01 - [facility] [address], [place], [place] ??[id number] Buffet Attendant: Francisco Javier Stewart PhD, Phone: ??[phone] Yaron Roach MD LAB BLOOD ORDERABLES [facility] * (ABNORMAL) CBC (includes Differential/Platelets) (04/30/2020 6:09 AM SELF CONTAINED BEHAVIOR UNIT TEACHER) Pathologist [facility] Leukocytes, Blood 5.0 3.4 - 10.8 x10E3/uL [...] x10E3/uL [facility] 1 Blood 04/30/2020 6:09 AM SELF CONTAINED BEHAVIOR UNIT TEACHER 04/29/2020 11:00 PM SELF CONTAINED BEHAVIOR UNIT TEACHER Narrative [facility] - 05/01/2020 1:35 PM SELF CONTAINED BEHAVIOR UNIT TEACHER Performed at: ??01 - [facility] [address] ??[id number] Buffet Attendant: Francisco Javier Stewart PhD, Phone: ??[phone] Yaron Roach MD LAB BLOOD ORDERABLES [facility] 1 documented in this encounter Visit Diagnoses Diagnosis Obstructive sleep apnea syndrome- Primary Hypertensive left ventricular hypertrophy Chronic kidney disease, stage 3 (moderate) Edema of lower extremity documented in this encounter Care Teams Hydrographer Relationship Specialty Start Date End Date Timothy Banks MD [address] [place] [address] PCP - General Family Medicine 11/14/18 documented as of this encounter
--- OUTSIDE RECORDS SUMMARY | 2024-04-11 13:53 | XMS_ITS | Encounter Summary ---
Author Organization [facility] Berta utiizzy Address [address] [place] [address] Phone Care Team Providers Care Operating Room Surgical Technologist Name Role Phone Timothy Banks MD Primary Care Provider [phone] Encounter Details Date Type Department Care Team (Late st Contact Info) Description 11/22/2021 9:00 AM CDT Office Visit [facility] Nephrology and Hypertension [address] [place] [address], [address] [place] [address] Yaron Roach MD [address] [facility], [address] [place] [address] Obstructive sleep apnea syndrome (Primary Dx); Stage 3a chronic kidney disease ([facility]) Social History Tobacco Use Types Packs/Day Years [...] had been seen by Dr Laws at [facility] for years and was told that the [...] too high. he should lose weight. 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 Plan drink plenty of [...] CREATININE, URINE, RANDOM Routine 05/12/2022 8:02 AM EMPLOYMENT COUNSELOR Obstructive sleep apnea syndrome Stage 3a chronic kidney disease ([facility]) CBC (INCLUDES DIFFERENTIAL/PLATEL ETS) Routine 05/12/2022 8:02 AM EMPLOYMENT COUNSELOR Obstructive sleep apnea syndrome Stage 3a chronic kidney disease ([facility]) RENAL FUNCTION PANEL (RFP) Routine 05/12/2022 8:02 AM EMPLOYMENT COUNSELOR Obstructive sleep apnea syndrome Stage 3a chronic kidney disease ([facility]) PTH INTACT W/O CALCIUM, SERUM Routine 05/12/2022 8:02 AM EMPLOYMENT COUNSELOR Obstructive sleep apnea syndrome Stage 3a chronic kidney disease ([facility] [place] documented in this encounter Results * Total Protein w/ Creatinine, Urine, Random (05/12/2022 8:02 AM EMPLOYMENT COUNSELOR) Creatinine, Urine 81.4 Not Estab. mg/dL [facility] 1 Protein, Urine 4.5 Not Estab. mg/dL [facility] 1 Protein/Creatin ine, Urine 55 0 - 200 mg/g creat [facility] 1 05/12/2022 8:02 AM EMPLOYMENT COUNSELOR 05/11/2022 11:00 PM EMPLOYMENT COUNSELOR Narrative [facility] - 05/14/2022 2:35 AM EMPLOYMENT COUNSELOR Performed at: ??01 - [facility] [address] ??[id number] Wallpaper Cleaner: Francisco Javier Stewart PhD, Phone: ??[phone] Yaron Roach MD LAB URINE ORDERABLES [facility] * (ABNORMAL) Renal Function Panel (RFP) (05/12/2022 8:02 AM EMPLOYMENT COUNSELOR) Glucose, Serum/Plasma 138(H) 70 - 99 mg/dL [...] g/dL [facility] 1 Blood 05/12/2022 8:02 AM EMPLOYMENT COUNSELOR 05/11/2022 11:00 PM EMPLOYMENT COUNSELOR Narrative [facility] - 05/14/2022 2:35 AM EMPLOYMENT COUNSELOR Performed at: ??01 - [facility] [place] [address] [facility], [place], [place] ??[id number] Wallpaper Cleaner: Francisco Javier Stewart PhD, Phone: ??[phone] Yaron Roach MD LAB BLOOD ORDERABLES [facility] * PTH Intact w/o Calcium, Serum (05/12/2022 8:02 AM EMPLOYMENT COUNSELOR) PTH, Intact, Serum/Plasma 24 15 - 65 [...] . [facility] 2 Blood 05/12/2022 8:02 AM EMPLOYMENT COUNSELOR 05/11/2022 11:00 PM EMPLOYMENT COUNSELOR Narrative [facility] - 05/14/2022 2:35 AM EMPLOYMENT COUNSELOR Performed at: ??01 - [facility] [address], [place], [place] ??[id number] Wallpaper Cleaner: Francisco Javier Stewart PhD, Phone: ??[phone] Performed at: ??02 - [facility] [address] [facility], [place], [place] ??[id number] Wallpaper Cleaner: Cinthya Roper [facility], Phone: ??[phone] Yaron Roach MD LAB BLOOD ORDERABLES [facility] 1 [facility] 2 * (ABNORMAL) CBC (includes Differential/Platelets) (05/12/2022 8:02 AM EMPLOYMENT COUNSELOR) Leukocytes, Blood 2.5(LL) 3.4 - 10.8 x10E3/uL [...] x10E3/uL [facility] 1 Blood 05/12/2022 8:02 AM EMPLOYMENT COUNSELOR 05/11/2022 11:00 PM EMPLOYMENT COUNSELOR Narrative [facility] - 05/14/2022 2:35 AM EMPLOYMENT COUNSELOR Performed at: ??01 - [facility] [address] ??[id number] Wallpaper Cleaner: Francisco Javier Stewart PhD, Phone: ??[phone] Yaron Roach MD LAB BLOOD ORDERABLES Performing Organization Address City/State/[facility] Co de Phone Number [facility] 1 documented in this encounter Visit Diagnoses Diagnosis Obstructive sleep apnea syndrome- Primary Stage 3a chronic kidney disease (CMS-HCC) documented in this encounter Care Teams Operating Room Surgical Technologist Relationship Specialty Start Date End Date Timothy Banks MD [address] [place] [address] PCP - General Family Medicine 11/14/18 documented as of this encounter
--- OUTSIDE RECORDS SUMMARY | 2024-04-11 13:53 | XMS_ITS | Encounter Summary ---
Author Organization [facility] Berta utions Address [address] [place] [address] Phone Care Team Providers Care Coach Wirer Name Role Phone Timothy Banks MD Primary Care Provider [phone] Encounter Details Date Type Department Care Team [...] Coronavirus/COVID-19? No / Unsure 05/17/2022 9:00 AM NEWS CAMERA PERSON documented as of this encounter Plan of Treatment Not on file documented as of this encounter Visit Diagnoses Not on filedocumented in this encounter Care Teams Coach Wirer Relationship Specialty Start Date End Date Timothy Banks MD [address] [place] [address] PCP - General Family Medicine 11/14/18 documented as of this encounter
--- OUTSIDE RECORDS SUMMARY | 2024-04-11 13:53 | XMS_ITS | Encounter Summary ---
Author Organization [facility] Phys[facility] Berta utiizzy Address [address] [place] [address] Phone Care Team Providers Care Blood Tester Name Role Phone Timothy Banks MD Primary Care Provider [phone] Encounter Details Date Type Department Care Team (Late st Contact Info) Description 05/13/2020 9:45 AM ASSOCIATE AGENT INSURANCE SALES Office Visit [facility] Nephrology and Hypertension [address] [place] [address], [address] [place] [address] Yaron Roach MD [address] [facility], [address] [place] [address] Obstructive sleep apnea syndrome (Primary Dx); Left [...] Comments Blood Pressure 128/78 05/13/2020 9:56 AM ASSOCIATE AGENT INSURANCE SALES Pulse 72 05/13/2020 9:56 AM ASSOCIATE AGENT INSURANCE SALES Temperature 35.7 ??C (96.2 ??F) 05/13/2020 9:56 AM CS T Respiratory Rate - - Oxygen Saturation - - Inhaled Oxygen Concentration - - Weight 113 kg (250 lb) 05/13/2020 9:56 AM ASSOCIATE AGENT INSURANCE SALES Height 188 cm (6' 2 ) 05/13/2020 9:56 AM ASSOCIATE AGENT INSURANCE SALES Body Mass Index 32.1 05/13/2020 9:56 AM ASSOCIATE AGENT INSURANCE SALES documented in this encounter Progress Notes * [...] had been seen by Dr Laws at [facility] for years and was told that the [...] too high. he should lose weight. consider corset fitter or seeing PCP. he had the pneumonia [...] it is okay. copy of [facility] sent [facility]. Patient has a living will/DPOA. The [...] 3:35 PM CDT Performed at: ??01 - [facility] ??[id number] Erosion Control Specialist: Francisco Javier Stewart PhD, Phone: ??[phone] Yaron Roach MD LAB URINE ORDERABLES [facility] [...] PM CDT Performed at: ??01 - [facility] [address], [place], [place] ??[id number] Erosion Control Specialist: Francisco Javier Stewart PhD, Phone: ??[phone] Yaron Roach MD LAB BLOOD ORDERABLES [facility] [...] PM CDT Performed at: ??01 - [facility] [address], [place], [place] ??[id number] Erosion Control Specialist: Francisco Javier Stewart PhD, Phone: ??[phone] Performed at: ??02 - [facility] [address] [place], [place] ??[id number] Erosion Control Specialist: Cinthya Roper [facility], Phone: ??[phone] Yaron Roach MD LAB BLOOD ORDERABLES [facility] [...] PM CDT Performed at: ??01 - [facility] [address] ??[id number] Erosion Control Specialist: Francisco Javier Stewart PhD, Phone: ??[phone] Yaron Roach MD LAB BLOOD ORDERABLES [facility] 1 documented in this encounter Visit Diagnoses Diagnosis Obstructive sleep apnea syndrome- Primary Left ventricular hypertrophy Stage 3a chronic kidney disease (CMS-HCC) documented in this encounter Care Teams Blood Tester Relationship Specialty Start Date End Date Timothy Banks MD [address] [place] [address] PCP - General Family Medicine 11/14/18 documented as of this encounter
--- OUTSIDE RECORDS SUMMARY | 2024-04-11 13:54 | XMS_ITS | Encounter Summary ---
Author Organization [facility] Physician Berta valentine Address [address] [place] [address] Phone Care Team Providers Care Computer Analyst Name Role Phone Unavailable Primary Care Provider Unavailabl e Encounter Details Date Type Department Care Team (Late st Contact Info) Description 12/01/2016 Legacy Encounter - Labs [place] [address] Yaron Roach MD [address] [facility], [address] [facility] [place] [address] Social History Tobacco Use Types Packs/Day Years [...]
--- OUTSIDE RECORDS SUMMARY | 2024-04-11 13:54 | XMS_ITS | Encounter Summary ---
Author Organization Agg[facility] Physician Berta valentine Address [address] [place] [address] Phone Care Team Providers Care Orthopedic Brace Maker Name Role Phone Unavailable Primary Care Provider Unavailabl e Encounter Details Date Type Department Care Team (Late st Contact Info) Description 12/26/2016 Legacy Encounter - [place] [address] Yaron Roach MD [address] [facility], [address] [facility] [place] [address] Social History Tobacco Use Types Packs/Day Years [...]
--- OUTSIDE RECORDS SUMMARY | 2024-04-11 13:54 | XMS_ITS | Encounter Summary ---
Author Organization Agg[facility] Physician Berta utiizzy Address [address] [place] [address] Phone Care Team Providers Care Steel Pourer Name Role Phone Unavailable Primary Care Provider Unavailabl e Encounter Details Date Type Department Care Team (Late st Contact Info) Description 05/04/2017 Legacy Encounter - [place] [address] Yaron Roach MD [address] [facility], SU[address] [facility] [place] [address] Social History Tobacco Use Types Packs/Day Years [...] CREATININE, URINE, RANDOM Routine 05/04/2017 8:42 AM LUMBER CARRIER RENAL FUNCTION PANEL (RFP) Routine 05/04/2017 8:42 AM LUMBER CARRIER DIRECT LDL, SERUM Routine 05/04/2017 8:4 2 AM LUMBER CARRIER ALT (SGPT), SERUM Routine 05/04/2017 8:4 2 AM LUMBER CARRIER documented in this encounter Results * ALT (05/04/2017 8:42 AM LUMBER CARRIER) Alanine Aminotransferase (ALT), Serum Plasma 25 0 - 44 IU/L EXTERNAL LAB 05/04/2017 8:42 AM LUMBER CARRIER 05/04/2017 Yaron Roach MD LAB BLOOD ORDERABLES Performing Organization Address City/[facility]/ZIP Co de Phone Number EXTERNAL LAB * Direct LDL (05/04/2017 8:42 AM LUMBER CARRIER) Cholesterol, LDL, Serum/Plasma 96 0 - 99 mg/dL EXTERNAL LAB Comment: CANCELED EXTERNAL LAB Comment:Result canceled by [facility]. 05/04/2017 8:42 AM LUMBER CARRIER 05/04/2017 Yaron Roach MD LAB BLOOD ORDERABLES Performing Organization Address [facility] Co de Phone Number EXTERNAL LAB * Total Protein w/ Creatinine, Random (05/04/2017 8:42 AM LUMBER CARRIER) Creatinine, Urine 90.8 Not Estab. mg/dL [facility] Protein, Urine 6.2 Not Estab. mg/dL [facility] Protein/Creatin ine, Urine 68 0 - 200 mg/g creat EXTERNAL LAB 05/04/2017 8:42 AM LUMBER CARRIER 05/04/2017 Yaron Roach MD LAB URINE ORDERABLES Performing Organization Address City/[facility] Co de Phone Number EXTERNAL LAB * (ABNORMAL) Renal Function Panel (05/04/2017 8:42 AM LUMBER CARRIER) Glucose, Serum/Plasma 98 65 - 99 mg/dL [...] 4.8 g/dL EXTERNAL LAB 05/04/2017 8:42 AM LUMBER CARRIER 05/04/2017 Yaron Roach MD LAB BLOOD ORDERABLES EXTERNAL LAB documented in this encounter Visit Diagnoses Not on filedocumented in this encounter
--- OUTSIDE RECORDS SUMMARY | 2024-04-11 13:54 | XMS_ITS | Encounter Summary ---
Author Organization Agg[facility] Physician Berta utiizzy Address [address] [place] [address] Phone Care Team Providers Care K 9 Handler/ Deputy Name Role Phone Unavailable Primary Care Provider Unavailabl e Encounter Details Date Type Department Care Team (Late st Contact Info) Description 11/05/2018 Orders Only [facility] Nephrology and Hypertension [address] [facility], [address] [address] Yaron Roach MD [address], [address] [place] [address] Social History Tobacco Use Types Packs/Day Years [...] PM CDT Performed at: ??01 - [facility] [address], [place], [place] ??[id number] Mailing Specialist: Francisco Javier Stewart PhD, Phone: ??[phone] Yaron Roach MD LAB BLOOD ORDERABLES [facility] * Vitamin D, 25-Hydroxy, Serum (11/05/2018 1:28 PM CDT) 25-Hydroxyvitami n D2+25-Hydroxyvit bautista D3, Serum/Plasma 36.4 30.0 - 100.0 ng/mL [facility] 1 Comment: Vitamin D deficiency has been defined by the [place] of Medicine and an Endocrine Society practice guideline as a level of serum 25-OH vitamin D less than 20 ng/mL (1,2). The Endocrine Society went on to further define vitamin D insufficiency as a level between 21 and 29 ng/mL (2). 1. IOM ([place] of Medicine). 2010. Dietary reference ?? intakes [...] 2:08 PM CDT Performed at: ??01 - [facility] ??[id number] Mailing Specialist: Francisco Javier Stewart PhD, Phone: ??[phone] Yaron Roach MD LAB BLOOD ORDERABLES Performing Organization Address [facility] de Phone Number [facility] 1 * Total Protein w/ Creatinine, Urine, Random (11/05/2018 1:28 PM CDT) Pathologist [facility] Creatinine, Urine 119.8 Not Estab. mg/dL [facility] 1 Protein, Urine 9.5 Not Estab. mg/dL [facility] 1 Protein/Creatin ine, Urine 79 0 - 200 mg/g creat [facility] 1 11/05/2018 1:28 PM CDT 11/04/2018 11:00 PM CDT Narrative [facility] - 11/06/2018 2:08 PM CDT Performed at: ??01 - [facility] ??[id number] Mailing Specialist: Francisco Javier Stewart PhD, Phone: ??[phone] Yaron Roach MD LAB URINE ORDERABLES Performing Organization Address [facility] Phone Number [facility] 1 * (ABNORMAL) CBC (includes Platelets / NO Differential) (11/05/2018 1:28 PM CDT) Pathologist [facility] Leukocytes, Blood 5.2 3.4 - 10.8 x10E3/uL [...] 2:08 PM CDT Performed at: ??01 - [facility], [place], [place] ??[id number] Mailing Specialist: Francisco Javier Stewart PhD, Phone: ??[phone] Yaron Roach MD LAB BLOOD ORDERABLES [facility] [...] PM CDT Performed at: ??01 - [facility] [address], [place], [place] ??[id number] Mailing Specialist: Francisco Javier Stewart PhD, Phone: ??[phone] Yaron Roach MD LAB BLOOD ORDERABLES Performing Organization Address City/State/[facility] Co de Phone Number [facility] 1 documented in this encounter Visit Diagnoses Not on filedocumented in this encounter
--- OUTSIDE RECORDS SUMMARY | 2024-04-11 13:54 | XMS_ITS | Encounter Summary ---
Author Organization Aggie Physician Berta utiizzy Address [address] [place] [address] Phone Care Team Providers Care Bank Examiner Name Role Phone Unavailable Primary Care Provider Unavailabl e Encounter Details Date Type Department Care Team (Late st Contact Info) Description 11/14/2016 Legacy Encounter - [place] [address] Yaron Roach MD [address] [facility], SU[address] [facility] [place] [address] Social History Tobacco Use Types Packs/Day Years [...] D deficiency has been defined by the [place] of Medicine and an Endocrine Society practice guideline as a level of serum 25-OH vitamin D less than 20 ng/mL (1,2). The Endocrine Society went on to further define vitamin D insufficiency as a level between 21 and 29 ng/mL (2). 1. IOM ([place] of Medicine). 2010. Dietary reference ?? intakes for calcium and D. Javier [place]: The ?? National [employer] Press. 2. Imtiaz MF, Abiel CRANE, Luc MCKAY, et al. ?? Evaluation, treatment, and prevention of vitamin D ?? deficiency: an Endocrine Society clinical practice ?? guideline. JCEM. 2010; 96(7):1911-30. 11/14/2016 9:53 AM CDT 11/14/2016 Yaron Roach MD LAB BLOOD ORDERABLES EXTERNAL LAB * PTH Intact w/ Calcium (11/14/2016 9:53 AM CDT) Pathologist [facility] PTH, Intact, Serum/Plasma 32 15 - 65 [...]
--- OUTSIDE RECORDS SUMMARY | 2024-04-11 13:54 | XMS_ITS | Encounter Summary ---
Author Organization [facility] utiizzy Address [address] [place] [address] Phone Care Team Providers Care Body Line Finisher Name Role Phone Unavailable Primary Care Provider Unavailabl e Encounter Details Date Type Department Care Team (Late st Contact Info) Description 11/22/2017 Legacy Encounter - [place] [address] Yaron Roach MD [address] [facility] [place] [address] Social History Tobacco Use Types Packs/Day Years [...] MD LAB BLOOD ORDERABLES Performing Organization Address [facility] Co de Phone Number EXTERNAL LAB (NON-INTERFACED) * ALT (11/22/2017 9:29 AM CDT) Alanine Aminotransferase (ALT), Serum Plasma 21 0 - 44 IU/L EXTERNAL LAB (NON-INTERFAC ED) 11/22/2017 9:2 9 AM CDT 11/22/2017 Yaron Roach MD LAB BLOOD ORDERABLES Performing Organization Address [facility] Co de Phone Number EXTERNAL LAB (NON-INTERFACED) * Vitamin D, 25-Hydroxy (11/22/2017 9:29 AM CDT) 25-Hydroxyvitam in D2+25-Hydroxyvi tamin D3, Serum/Plasma 44.3 30.0 - 100.0 ng/mL EXTERNAL LAB (NON-INTERFACE D) Comment: Vitamin D deficiency has been defined by the [place] of Medicine and an Endocrine Society practice guideline as a level of serum 25-OH vitamin D less than 20 ng/mL (1,2). The Endocrine Society went on to further define vitamin D insufficiency as a level between 21 and 29 ng/mL (2). 1. IOM ([place] of [employer]). 2010. Dietary reference ?? intakes for calcium and D. Javier DC: The ?? [employer]. 2. Imtiaz MF, Abiel NC, Luc MCKAY, et al. ?? Evaluation, treatment, and prevention of vitamin D ?? deficiency: an Endocrine Society clinical practice ?? guideline. JCEM. 2010; 96():1911-30. 11/22/2017 9:29 AM CDT 11/22/2017 Yaron Roach MD LAB BLOOD ORDERABLES Performing Organization Address [facility] Co de Phone Number EXTERNAL LAB (NON-INTERFACED) [...] MD LAB URINE ORDERABLES Performing Organization Address [facility] de Phone Number EXTERNAL LAB [...]
--- OUTSIDE RECORDS SUMMARY | 2024-04-11 13:54 | XMS_ITS | Encounter Summary ---
Author Organization [facility] Berta valentine Address [address] [place] [address] Phone Care Team Providers Care Bridge Instructor Name Role Phone Unavailable Primary Care Provider Unavailabl e Encounter Details Date Type Department Care Team (Late st Contact Info) Description 12/27/2017 Legacy Encounter - Labs [place] [address] Yaron Roach MD [address] [facility], [address] [facility]0 [place] [address] Social History Tobacco Use Types Packs/Day Years [...]
--- OUTSIDE RECORDS SUMMARY | 2024-04-11 13:54 | XMS_ITS | Encounter Summary ---
Author Organization [facility]zy Address [address] [place] [address] Phone Care Team Providers Care Food And Beverage Order Clerk Name Role Phone Unavailable Primary Care Provider Unavailabl e Encounter Details Date Type Department Care Team (Late st Contact Info) Description 05/03/2018 Legacy Encounter - Labs [place] [address] Yaron Roach MD [address] [facility], SUITE [facility] [place] [address] Social History Tobacco Use Types Packs/Day Years [...] CREATININE, URINE, RANDOM Routine 05/03/2018 7:17 AM AUTOMATIC PUNCH PRESS OPERATOR DPS CONVERSION - TEXT (FREE TEXT) RESULT Routine 05/03/2018 7:17 AM AUTOMATIC PUNCH PRESS OPERATOR RENAL FUNCTION PANEL (RFP) Routine 05/03/2018 7:17 AM AUTOMATIC PUNCH PRESS OPERATOR documented in this encounter Results * Conversion - Text (Free Text) Result (05/03/2018 7:17 AM AUTOMATIC PUNCH PRESS OPERATOR) Specimen Status Report EXTERNAL LAB (NON-INTERFACE D) Comment: Geremias Abbrev RP10 Default Ambig Abbrev RP10 Default A hand-written panel/profile was received from your office. In accordance with the [facility] Ambiguous Test Code Policy dated October 2002, we have completed your order by using the closest currently or formerly recognized AMA panel. ??We have assigned Renal Panel (10), Test Code #[id number] to this request. ??If this is not the testing you wished to receive on this specimen, please contact the [facility]Technical Services Department to clarify the test order. ??We appreciate your business. 05/03/2018 7:17 AM AUTOMATIC PUNCH PRESS OPERATOR 05/03/2018 Yaron Roach MD LAB BLOOD ORDERABLES Performing Organization Address [facility]/ZIP Co de Phone Number EXTERNAL LAB (NON-INTERFACED) * Total Protein w/ Creatinine, Random (05/03/2018 7:17 AM AUTOMATIC PUNCH PRESS OPERATOR) Creatinine, Urine 133.1 Not Estab. mg/dL EXTERNAL LAB (NON-INTERFACE D) Protein, Urine 7.7 Not Estab. mg/dL EXTERNAL LAB (NON-INTERFACE D) Protein/Creatin ine, Urine 58 0 - 200 mg/g creat EXTERNAL LAB (NON-INTERFACE D) 05/03/2018 7:17 AM AUTOMATIC PUNCH PRESS OPERATOR 05/03/2018 Yaron Roach MD LAB URINE ORDERABLES Performing Organization Address [facility]/ZIP Co de Phone Number EXTERNAL LAB (NON-INTERFACED) * (ABNORMAL) Renal Function Panel (05/03/2018 7:17 AM AUTOMATIC PUNCH PRESS OPERATOR) Glucose, Serum/Plasma 113(H) 65 - 99 mg/dL [...] EXTERNAL LAB (NON-INTERFACE D) 05/03/2018 7:17 AM AUTOMATIC PUNCH PRESS OPERATOR 05/03/2018 Yaron Roach MD LAB BLOOD ORDERABLES EXTERNAL LAB (NON-INTERFACED) documented in this encounter Visit Diagnoses Not on filedocumented in this encounter
--- OUTSIDE RECORDS SUMMARY | 2024-04-11 13:54 | XMS_ITS | Encounter Summary ---
Author Organization [facility] utions Address [address] [place] [address] Phone Care Team Providers Care Distribution Manager Name Role Phone Timothy Banks MD Primary Care Provider [phone] Encounter Details Date Type Department Care Team (Late st Contact Info) Description 11/14/2018 9:15 AM CDT Office Visit [facility] Nephrology and Hypertension [address] [place] [address], [address] [place] [address] Yaron Roach MD [address] [facility], [address] [place] [address] Chronic kidney disease, stage 3 (moderate) (Primary [...] had been seen by Dr Laws at [facility] for years and was told that the [...] too high. he should lose weight. consider valet parking attendant or seeing PCP. he had the pneumonia [...] CREATININE, URINE, RANDOM Routine 05/07/2019 6:14 AM DIRECTOR OF FLIGHT OPERATIONS Chronic kidney disease, stage 3 (moderate) ([facility]) RENAL FUNCTION PANEL (RFP) Routine 05/07/2019 6:14 AM DIRECTOR OF FLIGHT OPERATIONS Chronic kidney disease, stage 3 (moderate) ([facility]) documented in this encounter Results * (ABNORMAL) Total Protein w/ Creatinine, Urine, Random (05/07/2019 6:14 AM DIRECTOR OF FLIGHT OPERATIONS) Creatinine, Urine 65.2 Not Estab. mg/dL [facility] [...] a more concentrated urine. 05/07/2019 6:14 AM DIRECTOR OF FLIGHT OPERATIONS 05/06/2019 11:00 PM DIRECTOR OF FLIGHT OPERATIONS Narrative [facility] - 05/08/2019 10:09 AM DIRECTOR OF FLIGHT OPERATIONS Performed at: ??01 - [facility] [address] ??[id number] Pin Drafting Machine Tender: Francisco Javier Stewart PhD, Phone: ??[phone] Yaron Roach MD LAB URINE ORDERABLES [facility] 1 * (ABNORMAL) Renal Function Panel (RFP) (05/07/2019 6:14 AM DIRECTOR OF FLIGHT OPERATIONS) Glucose, Serum/Plasma 117(H) 65 - 99 mg/dL [...] nce interval change Blood 05/07/2019 6:14 AM DIRECTOR OF FLIGHT OPERATIONS 05/06/2019 11:00 PM DIRECTOR OF FLIGHT OPERATIONS Narrative [facility] - 05/08/2019 10:09 AM DIRECTOR OF FLIGHT OPERATIONS Performed at: ??01 - [facility] [address] ??[id number] Pin Drafting Machine Tender: Francisco Javier Stewart PhD, Phone: ??[phone] Yaron Roach MD LAB BLOOD ORDERABLES [facility] 1 documented in this encounter Visit Diagnoses Diagnosis Chronic kidney disease, stage 3 (moderate)- Primary documented in this encounter Care Teams Distribution Manager Relationship Specialty Start Date End Date Timothy Banks MD [address] [place] [id number] PCP - General Family Medicine 11/14/18 documented as of this encounter
--- OUTSIDE RECORDS SUMMARY | 2024-04-11 13:54 | XMS_ITS | Encounter Summary ---
Author Organization [facility] Berta utiizzy Address [address] [place] [address] Phone Care Team Providers Care Molybdenum Steamer Operator Name Role Phone Unavailable Primary Care Provider Unavailabl e Encounter Details Date Type Department Care Team (Late st Contact Info) Description 08/13/2015 Legacy Encounter - [place] [address] Yaron Roach MD [address] [facility], SUITE [facility] [place] [address] Social History Tobacco Use Types Packs/Day Years [...]
--- OUTSIDE RECORDS SUMMARY | 2024-04-11 13:54 | XMS_ITS | Encounter Summary ---
Author Organization [facility] Berta valentine Address [address] [place] [address] Phone Care Team Providers Care High Scaler Name Role Phone Timothy Banks MD Primary Care Provider [phone] Encounter Details Date Type Department Care Team (Late st Contact Info) Description 05/15/2019 9:45 AM TANK SHOP SUPERVISOR Office Visit [facility] Nephrology and Hypertension [address] [place] [address], [address] [place] [address] Yaron Roach MD [address] [facility], [address] [place] [address] Chronic kidney disease, stage 3 (moderate) (CMS-HCC) [...] Comments Blood Pressure 116/72 05/15/2019 10:00 AM TANK SHOP SUPERVISOR Pulse 84 05/15/2019 10:00 AM TANK SHOP SUPERVISOR Temperature 36.7 ??C (98.1 ??F) 05/15/2019 10:[address] Respiratory Rate - - Oxygen Saturation - - Inhaled Oxygen Concentration - - Weight 114 kg (252 lb) 05/15/2019 10:00 AM TANK SHOP SUPERVISOR Height 188 cm (6' 2 ) 05/15/2019 10:00 AM TANK SHOP SUPERVISOR Body Mass Index 32.35 05/15/2019 10:00 AM TANK SHOP SUPERVISOR documented in this encounter Progress Notes * [...] had been seen by Dr Laws at [facility] for years and was told that the [...] too high. he should lose weight. 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 he had the pneumonia [...] it is okay. [facility] Patient has a living will/DPOA. The person [...] CDT Chronic kidney disease, stage 3 (moderate) ([facility]) CBC (INCLUDES DIFFERENTIAL/PLATELE TS) Routine 11/07/2019 6:00 AM CDT Chronic kidney disease, stage 3 (moderate) ([facility]) RENAL FUNCTION PANEL (RFP) Routine 11/07/2019 6:00 AM CDT Chronic kidney disease, stage 3 (moderate) ([facility]) PROTEIN / CREATININE RATIO, URINE Routine 11/07/2019 6:00 AM CDT documented in this encounter Results * PTH, Intact (11/07/2019 6:00 AM CDT) PTH, Intact, Serum/Plasma 22 15 - 65 pg/mL [facility] 1 11/07/2019 6:00 AM CDT 11/06/2019 11:00 PM CDT Narrative [facility] - 11/08/2019 7:13 AM CDT Performed at: ??01 - [facility] [address] ??[id number] Metal Lather: Francisco Javier Stewart PhD, Phone: ??[phone] Yaron Roach MD LAB BLOOD ORDERABLES [facility] [...] AM CDT Performed at: ??01 - [facility] [address] ??[id number] Metal Lather: Francisco Javier Stewart PhD, Phone: ??[phone] Yaron Roach MD LAB URINE ORDERABLES [facility] 1 * (ABNORMAL) Renal Function Panel (RFP) (11/07/2019 6:00 AM CDT) Pathologist [facility] Glucose, Serum/Plasma 100(H) 65 - 99 mg/dL [...] AM CDT Performed at: ??01 - [facility] [address] ??[id number] Metal Lather: Francisco Javier Stewart PhD, Phone: ??[phone] Yaron Roach MD LAB BLOOD ORDERABLES Performing Organization Address [facility] de Phone Number [facility] 1 * Vitamin D, 25-Hydroxy, Serum (11/07/2019 6:00 AM CDT) Pathologist [facility] 25-Hydroxyvitami n D2+25-Hydroxyvit bautista D3, Serum/Plasma 37.0 30.0 - 100.0 ng/mL [facility] 1 Comment: Vitamin D deficiency has been defined by the [place] of Medicine and an Endocrine Society practice guideline as a level of serum 25-OH vitamin D less than 20 ng/mL (1,2). The Endocrine Society went on to further define vitamin D insufficiency as a level between 21 and 29 ng/mL (2). 1. IOM ([place] of Medicine). 2010. Dietary reference ?? intakes [...] AM CDT Performed at: ??01 - [facility] [address] ??[id number] Metal Lather: Francisco Javier Stewart PhD, Phone: ??[phone] Yaron Roach MD LAB BLOOD ORDERABLES Performing Organization Address [facility] Co de Phone Number [facility] * (ABNORMAL) CBC (includes Differential/Platelets) (11/07/2019 6:00 AM CDT) [facility] Leukocytes, Blood 4.8 3.4 - 10.8 x10E3/uL [...] 6:00 AM CDT 11/06/2019 11:[address] [facility] - 11/08/2019 7:13 AM CDT Performed at: ??[address], [place] ??[id number] Metal Lather: Francisco Javier Stewart PhD, Phone: ??[phone] Yaron Roach MD LAB BLOOD ORDERABLES [facility] 1 documented in this encounter Visit Diagnoses Diagnosis Chronic kidney disease, stage 3 (moderate)- Primary Edema of lower extremity documented in this encounter Care Teams High Scaler Relationship Specialty Start Date End Date Timothy Banks MD [address] [place] [address] PCP - General Family Medicine 11/14/18 documented as of this encounter
--- OUTSIDE RECORDS SUMMARY | 2024-04-11 13:56 | XMS_ITS | Clinical Summary ---
Author Organization [facility] Address [address] [place] [address] Care Team Providers Care Zipper Measurer Name Role Phone Unavailable Primary Care Provider Unavailabl e Immunizations Immunization Administration Dates Next Due Covid-19, Mrna, Lnp-s, Pf, 30 Mcg/0.3 Ml Dose (P fizer) 04/14/2021 Social History Tobacco Use Types Packs/Day Years Used Date Smoking Tobacco: Never Assessed Sex and Gender Information Value Date Recorded Sex Assigned at Not on file Legal Sex Male 3:46 PM PLANER OPERATOR Gender Identity Not on file Sexual Orientation Not on file Plan of Treatment Health Maintenance Due Date Last Done Comments Hepatitis C Virus (HCV) Screening 1945 Respiratory Syncytial Virus (RSV) Immunization (Adult) (1 - 1-dose 75+ series) 11/04/2019 Influenza Immunization (#1) 12/10/202311/09, 01/04/2020, 01/25/2019, Additional history exists SARS-COV-2 Immunization [...]
--- OUTSIDE RECORDS SUMMARY | 2024-04-11 13:56 | XMS_ITS | Encounter Summary ---
Author Organization [facility] Address [address] [place] [address] Care Team Providers Care Human Relations Professor Name Role Phone Timothy Banks MD Primary Care Provider [phone] Encounter Details Date Type Department Care Team (Late st Contact Info) Description 04/01/2024 Orders Only [facility] Oncology and Hematology - [place] [address] [facility] [address] [place] [address] Frank Singh MD [address] [facility] [address] [place] [address] 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 achieved remission Social History Tobacco Use Types Packs/Day Years Used Date Smoking Tobacco: Never Smokeless Tobacco: Never Alcohol Use Standard Drinks/Week Comments Yes 0 (1 standard drink = 0.6 oz pur e alcohol) Very Ocasionally Sex and Gender Information Value Date Recorded Sex Assigned at Male 04/05/2024 3:07 PM WEAVER HAND Gender Identity Male 04/05/2024 3:07 PM WEAVER HAND Sexual Orientation Not on file documented as of this encounter Plan of Treatment Not on file documented as of this encounter Visit Diagnoses Diagnosis 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 achieved remission documented in this encounter Care Teams Human Relations Professor Relationship Specialty Start Date End Date Timothy Banks MD [address] [place] [address] PCP - General Family Practice 02/01/24 documented as of this encounter
--- OUTSIDE RECORDS SUMMARY | 2024-04-11 13:56 | XMS_ITS | Encounter Summary ---
Author Organization [facility] [employer] [facility] Address [address] [place] [address] Care Team Providers Care Hog Dropper Name Role Phone Timothy Banks MD Primary Care Provider [phone] Encounter Details Date Type Department Care Team (Late st Contact Info) Description 04/02/2024 Orders Only [facility] Oncology and Hematology - [place] [address] [facility] [address] [place] [address] Frank Singh MD [address] [facility] [address] [place] [address] 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 achieved remission Social History Tobacco Use Types Packs/Day Years Used Date Smoking Tobacco: Never Smokeless Tobacco: Never Alcohol Use Standard Drinks/Week Comments Yes 0 (1 standard drink = 0.6 oz pur e alcohol) Very Ocasionally Sex and Gender Information Value Date Recorded Sex Assigned at Male 04/05/2024 3:07 PM CAR BODY MECHANIC Gender Identity Male 04/05/2024 3:07 PM CAR BODY MECHANIC Sexual Orientation Not on file documented as of this encounter Plan of Treatment Not on file documented as of this encounter Visit Diagnoses Diagnosis 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 achieved remission documented in this encounter Care Teams Hog Dropper Relationship Specialty Start Date End Date Timothy Banks MD [address] [place] [address] PCP - General Family Practice 02/01/24 documented as of this encounter
--- OUTSIDE RECORDS SUMMARY | 2024-04-11 13:56 | XMS_ITS | Clinical Summary ---
Author Organization [facility] Meka Hayes Address [address] [place] [address] Care Team Providers Care Cafe Helper Name Role Phone Timothy Banks MD Primary Care Provider [phone] Allergies Active Allergy Reactions Criticality Noted Date [...] Department Care Team Description 04/09/2024 Orders Only [facility] Oncology and Hematology - [place] [address] [place] [address] Frank Singh MD 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 achieved remission 04/08/2024 Orders Only [facility] Oncology and Hematology - [place] [address] [place] [address] Frank Singh MD 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 achieved remission 04/05/2024 Orders Only [facility] Oncology and Hematology - [place] [address] [place] [address] Frank Singh MD 04/02/2024 Orders Only [facility] Oncology and Hematology - [place] [address] Frank Singh MD 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 achieved remission 04/01/2024 Orders Only [facility] Oncology and Hematology - [place] [address] [place] [address] Frank Singh MD 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 achieved remission 03/28/2024 Orders Only [facility] Oncology and Hematology - [place] [address] [place] [address] Frank Singh MD 03/28/2024 Nurse Triage [facility] Oncology and Hematology - [place] [address] [place] [address] Frank Singh MD 03/26/2024 Orders Only [facility] Oncology and Hematology - [place] [address] [place] [address] Frank Singh MD 03/25/2024 Telephone [facility] Oncology and Hematology - [place] [address] [place] [address] Frank Singh MD Lab Results 03/25/2024 Orders Only [facility] Oncology and Hematology - [place] [address] [place] [phone] Frank Singh MD 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 achieved remission 03/22/2024 Telephone [facility] Oncology and Hematology [facility] [address] Frank Singh MD Chemotherapy 03/22/2024 Telephone [facility] Oncology and Hematology - [place] [address] Frank Singh MD error 02/26/2024 4:30 PM SECOND CHEF Telephone Check Up [facility] Oncology and Hematology - [place] [address] [place] [address] Frank Singh MD Chronic anemia (Primary Dx) 02/22/2024 Telephone [facility] Oncology and Hematology - [place] [address] [place] [address] Frank Singh MD Referral 02/21/2024 Orders Only [facility] Oncology and Hematology - [place] [address] [place] [address] Frank Singh MD 02/16/2024 Orders Only [facility] Oncology and Hematology - [place] [address] [place] [address] Scanning, Provider 02/06/2024 External Device Data STL ABSTRACTION Provider, Abstract 02/02/2024 Telephone [facility] Oncology and Hematology - [place] [address] [place] [address] Frank Singh MD Biopsy 02/02/2024 Orders Only [facility] Oncology and Hematology - [place] [address] [place] [address] Frank Singh MD 02/01/2024 1:30 PM CDT Office Visit [facility] Oncology and Hematology - [place] [address] [place] [address] Frank Singh MD Chronic anemia (Primary Dx) 02/01/2024 Orders Only [facility] Oncology and Hematology - [place] [address] [place] [address] Frank Singh MD Chronic anemia (Primary Dx); [...] Sex Assigned at Male 04/05/2024 3:07 PM SECOND CHEF Gender Identity Male 04/05/2024 3:07 PM SECOND CHEF Sexual Orientation Not on file Last Filed [...] BASIC METABOLIC PANEL Routine 04/04/2024 3:39 PM SECOND CHEF CBC WITH DIFFERENTIAL Routine 04/04/2024 1:55 PM SECOND CHEF BASIC METABOLIC PANEL Routine 04/01/2024 10:11 AM SECOND CHEF CBC MIXED CELL DIFFERENTIAL Routine 04/01/2024 9:00 AM SECOND CHEF BASIC METABOLIC PANEL Routine 03/28/2024 1:31 PM SECOND CHEF CBC WITH DIFFERENTIAL Routine 03/28/2024 1:23 PM SECOND CHEF BASIC METABOLIC PANEL Routine 03/25/2024 1:24 PM SECOND CHEF CBC WITH DIFFERENTIAL Routine 03/25/2024 1:23 PM SECOND CHEF CBC WITH DIFFERENTIAL Routine 03/25/2024 10:28 AM SECOND CHEF CHROMOSOME ANALYSIS, AMNIOTIC FLUID Routine 02/21/2024 1:39 PM SECOND CHEF FLOW CYTOMETRY PANEL Routine 02/12/2024 2:53 PM SECOND CHEF BONE MARROW ASPIRATION & BIOPSY Routine 02/12/2024 7:45 AM SECOND CHEF BASIC METABOLIC PANEL Routine 02/01/2024 1:36 PM CDT CBC WITH DIFFERENTIAL Routine 02/01/2024 12:49 PM CDT from Last 3 Months Results * BASIC METABOLIC PANEL (04/04/2024 3:39 PM SECOND CHEF) Only the most recent of5 resultswithin the time period is included. Blood Frank Singh MD CHEMISTRY ORDERABLES * CBC WITH DIFFERENTIAL (04/04/2024 1:55 PM SECOND CHEF) Only the most recent of5 resultswithin the time period is included. Blood Frank Singh MD HEMATOLOGY ORDERABLE S * CBC MIXED CELL DIFFERENTIAL (04/01/2024 9:00 AM SECOND CHEF) Blood Frank Singh MD HEMATOLOGY ORDERABLE S * CHROMOSOME ANALYSIS, AMNIOTIC FLUID (02/21/2024 1:39 PM SECOND CHEF) Amniotic fluid AMNIOTIC FLUID / Unknown Frank Singh MD BODY FLUIDS AND STOO LS * FLOW CYTOMETRY PANEL (02/12/2024 2:53 PM SECOND CHEF) Provider Scanning PATHOLOGY/CYTOLOGY O RDERABLES * BONE MARROW ASPIRATION AND BIOPSY (02/12/2024 7:45 AM SECOND CHEF) Bone marrow Frank Singh MD PATH/CYTO ORDERABLES COM from Last 3 Months Care Teams Cafe Helper Relationship Specialty Start Date End Date Timothy Banks MD [address] [place] [id number] PCP - General Family Practice 02/01/24
--- OUTSIDE RECORDS SUMMARY | 2024-04-11 13:56 | XMS_ITS | Encounter Summary ---
Author Organization [facility] Address [address] [place] [address] Care Team Providers Care Crop Picker Name Role Phone Unavailable Primary Care Provider Unavailabl e Encounter Details Date Type Department Care Team (Late st Contact Info) Description 04/14/2021 4:00 PM HEAD START TEACHER Immunization [place] [facility] PED - [facility] 2 Mobile Immunization [address] [address] Need for vaccination (Primary Dx) Social History Tobacco Use Types Packs/Day Years Used Date Smoking Tobacco: Never Assessed Sex and Gender Information Value Date Recorded Sex Assigned at Not on file Legal Sex Male 3:46 PM HEAD START TEACHER Gender Identity Not on file Sexual Orientation Not on file documented as of this encounter Plan of Treatment Not on file documented as of this encounter Visit Diagnoses Diagnosis Need for vaccination- Primary Need for prophylactic vaccination and inoculation against unspecified single disease documented in this encounter
--- OUTSIDE RECORDS SUMMARY | 2024-04-11 13:57 | XMS_ITS | Encounter Summary ---
Author Organization [facility] [employer] [facility] Address [address] [place] [address] Care Team Providers Care Hide Measuring Machine Operator Name Role Phone Timothy Banks MD Primary Care Provider [phone] Reason for Visit * Reason Onset Date Comments Chemotherapy 03/22/2024 Encounter Details Date Type Department Care Team (Late st Contact Info) Description 03/22/2024 Telephone [facility] Oncology and Hematology - [place] [address] [facility] [address] [place] [address] Frank Singh MD [address] [facility] [address] [place] [address] Chemotherapy Social History Tobacco Use Types Packs/Day Years Used Date Smoking Tobacco: Never Smokeless Tobacco: Never Alcohol Use Standard Drinks/Week Comments Yes 0 (1 standard drink = 0.6 oz pur e alcohol) Very Ocasionally Sex and Gender Information Value Date Recorded Sex Assigned at Male 04/05/2024 3:07 PM SERVICE PLUMBER Gender Identity Male 04/05/2024 3:07 PM SERVICE PLUMBER Sexual Orientation Not on file documented as of this encounter Miscellaneous Notes * Telephone Encounter - Brittany Retana Kerry - 03/22/2024 2:49 PM CST BMT at [facility] spoke with Dr. Singh and called our office. Patient has started chemotherapy in [facility]. He is transferring back here as it is closer and he will need labs drawn 2 times a week. Patient is going to come in on Monday and of this week and get labs drawn. They will be discharging patient from the hospital tomorrow. ICE PLUMBER * Telephone Encounter - Brittany Retana - 03/22/2024 2:49 PM CST ----- Message from Dr. Frank Singh sent at 03/22/2024 2:46 PM SERVICE PLUMBER ----- Please register for chemo ICE PLUMBER documented in this encounter Plan of Treatment [...] Primary documented in this encounter Care Teams Hide Measuring Machine Operator Relationship Specialty Start Date End Date Timothy Banks MD [address] [place] [address] PCP - General Family Practice 02/01/24 documented as of this encounter
--- OUTSIDE RECORDS SUMMARY | 2024-04-11 13:57 | XMS_ITS | Encounter Summary ---
Author Organization [facility] [employer] [facility] Address [address] [place] [address] Care Team Providers Care Singe Winder Name Role Phone Timothy Banks MD Primary Care Provider [phone] Reason for Visit * Reason Onset Date Comments Lab Results 03/28/2024 Critical Labs- W BC .7 Encounter Details Date Type Department Care Team (Late st Contact Info) Description 03/28/[address] [facility] Oncology and Hematology - [place] [address] [place] [address] [facility] [address] [place] [phone] Frank Singh MD [address] [facility] [address] [place] [address] Social History Tobacco Use Types Packs/Day Years Used Date Smoking Tobacco: Never Smokeless Tobacco: Never Alcohol Use Standard Drinks/Week Comments Yes 0 (1 standard drink = 0.6 oz pur e alcohol) Very Ocasionally Sex and Gender Information Value Date Recorded Sex Assigned at Male 04/05/2024 3:07 PM DIRECTOR CHEMISTRY Gender Identity Male 04/05/2024 3:07 PM DIRECTOR CHEMISTRY Sexual Orientation Not on file documented as of this encounter Patient Instructions * Attachments The following attachments cannot be sent through Care Everywhere. * Neutropenia (Portuguese) documented in this encounter Miscellaneous Notes * Patient Instructions - Jinny Mo - 03/28/2024 9:22 AM DIRECTOR CHEMISTRY After Review of Labs by Deidra Dacosta, WBC is critical. I informed Dr. Garcia's Nurse, Mas by faxand phone of these results. She has advised Dr. Garcia on what to do next. Patient was informed of Labs and was told to await a phone call from Dr. Garcia's Office. RC CTOR CHEMISTRY documented in this encounter Plan of Treatment Not on file documented as of this encounter Visit Diagnoses Not on filedocumented in this encounter Care Teams Singe Winder Relationship Specialty Start Date End Date Timothy Banks MD [address] [place] [address] PCP - General Family Practice 02/01/24 documented as of this encounter
--- OUTSIDE RECORDS SUMMARY | 2024-04-11 13:57 | XMS_ITS | Encounter Summary ---
Author Organization [facility] [employer] [facility] Address [address] [place] [address] Care Team Providers Care Wood Turning Lathe Operator Name Role Phone Timothy Banks MD Primary Care Provider [phone] Encounter Details Date Type Department Care Team (Late st Contact Info) Description 02/16/2024 Orders Only [facility] Oncology and Hematology - [place] [address] [place] [address] Scanning, Provider Social History Tobacco Use Types Packs/Day Years Used Date Smoking Tobacco: Never Smokeless Tobacco: Never Alcohol Use Standard Drinks/Week Comments Yes 0 (1 standard drink = 0.6 oz pur e alcohol) Very Ocasionally Sex and Gender Information Value Date Recorded Sex Assigned at Male 04/05/2024 3:07 PM BIODIESEL TECHNOLOGY MANAGER Gender Identity Male 04/05/2024 3:07 PM BIODIESEL TECHNOLOGY MANAGER Sexual Orientation Not on file documented as of this encounter Plan of Treatment Not on file documented as of this encounter Procedures Procedure Name Priority Date/Time Associated Diagnosis Comments FLOW CYTOMETRY PANEL Routine 02/12/2024 2:53 PM BIODIESEL TECHNOLOGY MANAGER documented in this encounter Results * FLOW CYTOMETRY PANEL (02/12/2024 2:53 PM BIODIESEL TECHNOLOGY MANAGER) Provider Scanning PATHOLOGY/CYTOLOGY O RDERABLES documented in this encounter Visit Diagnoses Not on filedocumented in this encounter Care Teams Wood Turning Lathe Operator Relationship Specialty Start Date End Date Timothy Banks MD [address] [place] [address] PCP - General Family Practice 02/01/24 documented as of this encounter
--- OUTSIDE RECORDS SUMMARY | 2024-04-11 13:57 | XMS_ITS | Encounter Summary ---
Author Organization [facility] Address [address] [place] [address] Care Team Providers Care Stage Set Up Worker Name Role Phone Timothy Banks MD Primary Care Provider [phone] Reason for Visit * Reason Comments Establish Care Encounter Details Date Type Department Care Team (Late st Contact Info) Description 02/01/2024 1:30 PM CDT Office Visit [facility] Oncology and Hematology - [place] [address] [place] [address] [facility] [address] [place] [address] Frank Singh MD [address] [facility] [address] [place] [address] Chronic anemia (Primary Dx) Social History Tobacco Use Types Packs/Day Years Used Date Smoking Tobacco: Never Smokeless Tobacco: Never Alcohol Use Standard Drinks/Week Comments Yes 0 (1 standard drink = 0.6 oz pur e alcohol) Very Ocasionally Sex and Gender Information Value Date Recorded Sex Assigned at Male 04/05/2024 3:07 PM MANAGER OF APPLICATION DEVELOPMENT Gender Identity Male 04/05/2024 3:07 PM MANAGER OF APPLICATION DEVELOPMENT Sexual Orientation Not on file documented as of this encounter Last Filed [...] Mass Index 30.03 02/01/2024 1:39 PM CDT documented in this encounter Progress Notes * Frank Singh MD - 02/01/2024 2:06 PM CDT Hematology-oncology consult Note Requesting Physician Timothy Banks MD Primary Care Physician Timothy Banks MD Problem list There is no problem list on file for this patient. Previous TREATMENT ? Measurable Disease ? Reason for Visit Russ Kern is a 78 y.o. male who was referred for consultation for leukopenia History of present illness This is a pleasant 78-year-old male who was diagnosed with chronic leukopenia in [address] Gama states [facility]. 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 He was diagnosed withdiverticulitis. Labs showed WBC of 1.8. CT scan abdomen and pelvis showed normal liver and spleen. There was some pulmonary opacities likely infection. He was treated for diverticulitis. He was also started on Neupogen further neutropenia. He was discharged home on January 08 and at that time his WBC count was 18.8. He is feeling much better and stronger today. Denies any other new complaints. Past Medical History Past Medical History: Diagnosis Date Cardiac arrhythmia Diverticulitis History of blood clots Sleep apnea COPD Surgical History Past Surgical History: Procedure Laterality Date HX CHOLECYSTECTOMY 1995 HX HEART CATHETERIZATION 2022 HX HIATAL HERNIA 2004 Medications Current Outpatient Medications Medication Sig Dispense Refill lansoprazole (PREVACID) 30 mg Capsule, Delayed Release(E.C.) Take 30 mg by mouth daily. apixaban (ELIQUIS) 5 mg tablet Take 5 mg by mouth 2 times daily. folic acid (FOLVITE) 400 mcg Tablet Take 400 mcg by mouth daily. cholecalciferol, Vitamin D3, (VITAMIN D3) 25 mcg (1,000 unit) Capsule Take 25 Capsules by mouth daily. diltiaZEM (CARDIZEM CD) 120 mg Controlled Delivery 24 hour capsule Take 120 mg by mouth daily. No current facility-administered medications for this visit. Allergies Allergies Allergen Reactions Iodinated Contrast Media Hives Immunizations: Immunization History Administered Date(s) Administered (DermaGen)(12 YR UP) COVID-19 VACCINE - EMERGENCY USE AUTHORIZATION, MRNA, [id number](PF) 30 MCG/0.3 MLIM SUSP 04/14/2021 Family History Family History Problem Relation Name Age of Onset No Known Problems Father No Known Problems Mother Heart Disease Brother No Known Problems Sister Social History Social History Tobacco Use Smoking status: Never Smokeless tobacco: Never Substance Use Topics Alcohol use: Yes Comment: Very Ocasionally Review of Systems Constitutional: Patient did not mention fever; no night sweats; no anorexia; no weight loss; no fatique NEENT: Patient did not mention headache; no change in vision; no change in hearing; no sore throat;no dysphagia Respiratory: Patient did not mention shortness of breath; no pleuritic chest pain; no cough; no hemoptysis Cardiac: Patient did not mention cardiac-like chest pain; no palpitations; no orthopnea; no PND; noDOE GI: Patient did not mention abdominal pain; no nausea; no vomiting; no diarrhea; no hematochezia; no melena : Patient did not mention dysuria; no frequency; no hesitancy; no hematuria SIGN MANUFACTURER: Musculosketetal: Patient did not mention bone pain; no arthralgia; no joint swelling; no myalgia; Skin: Patient did not mention pruritis; no rash; no petechiae; no ecchymoses Endocrine: Patient did not mention polydipsia; no polyuria; no unusual weight gain Neuro: Patient did not mention headache; no change in vision; no sensory changes; no muscle weakness; no confusion; no seizures Psych: Patient did not mention anxiety; no depression; Physical Exam Vitals: As per nursing note Constitutional: Well developed, well nourished, no acute distress, non-toxic appearance Teeth and gum. No signs of infection or swelling. Eyes: PERRL, conjunctiva normal HEENT: Atraumatic, external ears normal, nose normal, oropharynx moist, no pharyngeal exudates. no sinus tenderness Neck- normal range of motion, no tenderness, supple Respiratory: No respiratory distress, normal breath sounds, no rales, no wheezing Cardiovascular: Normal rate, normal rhythm, no murmurs, no gallops, no rubs GI: Soft, nondistended, normal bowel sounds, nontender, no splenomegaly, no hepatomegaly, no mass, no rebound, no guarding : No costovertebral angle tenderness Musculoskeletal: No edema, no tenderness, no deformities. Back- no tenderness Integument: Well hydrated, no rash, Digits and nails inspection normal Lymphatic: No lymphadenopathy noted Neurologic: Alert & oriented x 3, CN 2-12 normal, normal motor function, normal sensory function, no focal deficits noted Psychiatric: Speech and behavior appropriate ? labs No results found for this or any previous visit (from the past 24 hour(s)). Labs on January 04 showed WBC 1.6 hemoglobin 11.9 platelet 1 67,000 creatinine 1.3 iron 36 saturation 13 ferritin 61 B12 761 Pathology ? Imaging & Other Studies Performance Status? Assessment / Plan: ? Leukopenia. Patient was admitted to the hospital with diagnosis of diverticulitis. At that time hishemoglobin was 11.9 and WBC was 1.6. MARLINE was negative. Patient has a history of chronic leukopenia and was seen by Dr. Gama at [facility]. CT scan abdomen and pelvis showed no evidence of hepatosplenomegaly. Patient received Neupogen in the hospital with significant improvement in theWBC count. Labs in the hospital showed normal B12 level but low iron and iron saturation with normal creatinine. We discussed the possibility of bone marrow disorders like MDS. At this time I will repeat labs including CBC with differential, CMP, iron profile and vitamin B12 level. I will discuss the finding with patient in 1 week. Based on the result we will decide about bone marrow aspiration and biopsy. I have answered all the questions to patient's satisfaction. Recurrent DVT. Patient is on Eliquis. GERD. Patient is on Prevacid. Hypertension. Patient is on Cardizem. Thank you very much for allowing me to participate in Russ Kern's evaluation and management. Please feel free to contact if I can be of any further assistance in your patient???s care requiring hematology or oncology evaluation. Sincerely, ? ? Frank Singh M.D. cell TOBACCO COUNSELING He is not a tobacco/nicotine user. Frank Singh MD ,02/01/2024 2:06 PM ? Total time spent 60 minutes, two third of the total time spent counseling patient [id number]. CC:?Timothy Banks MD documented in this encounter Plan of Treatment Scheduled Orders Name Type Priority Associated Diagnoses Orde r Schedule FERRITIN Lab Routine Chronic anemia Expected: 02/01/2024, Expires: 01/31/2025 IRON, TIBC, AND PERCENT SATURATION Lab Routine Chronic anemia Expected: 02/01/2024, Expires: 01/31/2025 VITAMIN B12 LEVEL Lab Routine Chronic anemia Expected: 02/01/2024, Expires: 01/31/2025 documented as of this encounter Visit Diagnoses Diagnosis Chronic anemia- Primary Anemia, unspecified documented in this encounter Care Teams Stage Set Up Worker Relationship Specialty Start Date End Date Timothy Banks MD [address] [place] [address] PCP - General Family Practice 02/01/24 documented as of this encounter
--- OUTSIDE RECORDS SUMMARY | 2024-04-11 13:57 | XMS_ITS | Encounter Summary ---
Author Organization [facility] [employer] [facility] Address [address] [place] [address] Care Team Providers Care Health Care Attorney Name Role Phone Timothy Banks MD Primary Care Provider [phone] Reason for Visit * Reason Onset Date Comments Biopsy 02/02/2024 Encounter Details Date Type Department Care Team (Late st Contact Info) Description 02/02/2024 Telephone [facility] Oncology and Hematology - [place] [address] [facility] [address] [place] [address] Frank Singh MD [address] [facility] [address] [place] [address] Biopsy Social History Tobacco Use Types Packs/Day Years Used Date Smoking Tobacco: Never Smokeless Tobacco: Never Alcohol Use Standard Drinks/Week Comments Yes 0 (1 standard drink = 0.6 oz pur e alcohol) Very Ocasionally Sex and Gender Information Value Date Recorded Sex Assigned at Male 04/05/2024 3:07 PM MARINE PAINTER Gender Identity Male 04/05/2024 3:07 PM MARINE PAINTER Sexual Orientation Not on file documented as of this encounter Miscellaneous Notes * Telephone Encounter - Brittany Retana - 02/02/2024 12:59 PM CDT Patient is aware of appointment. Appointment; 02/12/2024 at 0900 Arrive at 0730 for labs. Patient will need to hold Eliquis 2 days prior, he will continue 24 hours after procedure. He will need a sulky driver. Nothing to eat after midnight. Bring [...] filedocumented in this encounter Care Teams Health Care Attorney Relationship Specialty Start Date End Date Timothy Banks MD [address] [place] [address] PCP - General Family Practice 02/01/24 documented as of this encounter
--- OUTSIDE RECORDS SUMMARY | 2024-04-11 13:57 | XMS_ITS | Encounter Summary ---
Author Organization [facility] [employer] [facility] Address [address] [place] [address] Care Team Providers Care Machine Sweeper Brush Maker Name Role Phone Timothy Banks MD Primary Care Provider [phone] Encounter Details Date Type Department Care Team (Late st Contact Info) Description 02/21/2024 Orders Only [facility] Oncology and Hematology - [place] [address] [facility] [address] [place] [address] Frank Singh MD [address] [facility] [address] [place] [address] Social History Tobacco Use Types Packs/Day Years Used Date Smoking Tobacco: Never Smokeless Tobacco: Never Alcohol Use Standard Drinks/Week Comments Yes 0 (1 standard drink = 0.6 oz pur e alcohol) Very Ocasionally Sex and Gender Information Value Date Recorded Sex Assigned at Male 04/05/2024 3:07 PM DIRECTOR PRODUCT Gender Identity Male 04/05/2024 3:07 PM DIRECTOR PRODUCT Sexual Orientation Not on file documented as of this encounter Plan of Treatment Not on file documented as of this encounter Procedures Procedure Name Priority Date/Time Associated Diagnosis Comments CHROMOSOME ANALYSIS, AMNIOTIC FLUID Routine 02/21/2024 1:39 PM DIRECTOR PRODUCT BONE MARROW ASPIRATION & BIOPSY Routine 02/12/2024 7:45 AM DIRECTOR PRODUCT documented in this encounter Results * CHROMOSOME ANALYSIS, AMNIOTIC FLUID (02/21/2024 1:39 PM DIRECTOR PRODUCT) Amniotic fluid AMNIOTIC FLUID / Unknown Frank Singh MD BODY FLUIDS AND STOO LS * BONE MARROW ASPIRATION AND BIOPSY (02/12/2024 7:45 AM DIRECTOR PRODUCT) Bone marrow Frank Singh MD PATH/CYTO ORDERABLES COM documented in this encounter Visit Diagnoses Not on filedocumented in this encounter Care Teams Machine Sweeper Brush Maker Relationship Specialty Start Date End Date Timothy Banks MD [address] [place] [address] PCP - General Family Practice 02/01/24 documented as of this encounter
--- OUTSIDE RECORDS SUMMARY | 2024-04-11 13:57 | XMS_ITS | Encounter Summary ---
Author Organization [facility] [employer] [facility] Address [address] [place] [address] Care Team Providers Care Combo Welder Name Role Phone Timothy Banks MD Primary Care Provider [phone] Reason for Visit * Reason Onset Date Comments Lab Results 03/25/2024 Encounter Details Date Type Department Care Team (Late st Contact Info) Description 03/25/2024 Telephone [facility] Oncology and Hematology - [place] [address] [place] [address] [facility] [address] [place] [address] Frank Singh MD [address] [facility] [address] [place] [address] Lab Results Social History Tobacco Use Types Packs/Day Years Used Date Smoking Tobacco: Never Smokeless Tobacco: Never Alcohol Use Standard Drinks/Week Comments Yes 0 (1 standard drink = 0.6 oz pur e alcohol) Very Ocasionally Sex and Gender Information Value Date Recorded Sex Assigned at Male 04/05/2024 3:07 PM TOWER WATCHMAN Gender Identity Male 04/05/2024 3:07 PM TOWER WATCHMAN Sexual Orientation Not on file documented as of this encounter Miscellaneous Notes * Telephone Encounter - Brittany Retana Kerry - 03/25/2024 3:37 PM CST Patient came in today to get labs drawn. Dr. Singh reviewed his labs and would like him to start on a growth factor. Dr. Singh talked to the doctor at [facility] and they are wanting him [...] asked that he call the office back. R WATCHMAN documented in this encounter Plan of Treatment Not on file documented as of this encounter Visit Diagnoses Not on filedocumented in this encounter Care Teams Combo Welder Relationship Specialty Start Date End Date Timothy Banks MD [address] [place] [address] PCP - General Family Practice 02/01/24 documented as of this encounter
--- OUTSIDE RECORDS SUMMARY | 2024-04-11 13:57 | XMS_ITS | Encounter Summary ---
Author Organization [facility] [employer] [facility] Address [address] [place] [address] Care Team Providers Care Lead Manufacturing Technician Name Role Phone Timothy Banks MD Primary Care Provider [phone] Reason for Visit * Reason Onset Date Comments error 03/22/2024 Encounter Details Date Type Department Care Team (Late st Contact Info) Description 03/22/2024 Telephone [facility] Oncology and Hematology - [place] [address] [facility] [address] [place] [address] Frank Singh MD [address] [facility] [address] [place] [address] error Social History Tobacco Use Types Packs/Day Years Used Date Smoking Tobacco: Never Smokeless Tobacco: Never Alcohol Use Standard Drinks/Week Comments Yes 0 (1 standard drink = 0.6 oz pur e alcohol) Very Ocasionally Sex and Gender Information Value Date Recorded Sex Assigned at Male 04/05/2024 3:07 PM PEOPLESOFT ADMINISTRATOR Gender Identity Male 04/05/2024 3:07 PM PEOPLESOFT ADMINISTRATOR Sexual Orientation Not on file documented as of this encounter Plan of Treatment Not on file documented as of this encounter Visit Diagnoses Not on filedocumented in this encounter Care Teams Lead Manufacturing Technician Relationship Specialty Start Date End Date Timothy Banks MD [address] [place] [address] PCP - General Family Practice 02/01/24 documented as of this encounter
--- OUTSIDE RECORDS SUMMARY | 2024-04-11 13:57 | XMS_ITS | Encounter Summary ---
Author Organization [facility] [employer] [facility] Address [address] [place] [address] Care Team Providers Care Sister Superior Name Role Phone Timothy Banks MD Primary Care Provider [phone] Encounter Details Date Type Department Care Team (Late st Contact Info) Description 03/26/2024 Orders Only [facility] Oncology and Hematology - [place] [address] [facility] [address] [place] [address] Frank Singh MD [address] [facility] [address] [place] [address] Social History Tobacco Use Types Packs/Day Years Used Date Smoking Tobacco: Never Smokeless Tobacco: Never Alcohol Use Standard Drinks/Week Comments Yes 0 (1 standard drink = 0.6 oz pur e alcohol) Very Ocasionally Sex and Gender Information Value Date Recorded Sex Assigned at Male 04/05/2024 3:07 PM LINING FELLER BLINDSTITCH Gender Identity Male 04/05/2024 3:07 PM LINING FELLER BLINDSTITCH Sexual Orientation Not on file documented as of this encounter Plan of Treatment Not on file documented as of this encounter Procedures Procedure Name Priority Date/Time Associated Diagnosis Comments BASIC METABOLIC PANEL Routine 03/25/2024 1:24 PM LINING FELLER BLINDSTITCH CBC WITH DIFFERENTIAL Routine 03/25/2024 1:23 PM LINING FELLER BLINDSTITCH CBC WITH DIFFERENTIAL Routine 03/25/2024 10:28 AM LINING FELLER BLINDSTITCH documented in this encounter Results * BASIC METABOLIC PANEL (03/25/2024 1:24 PM LINING FELLER BLINDSTITCH) Blood Frank Singh MD CHEMISTRY ORDERABLES * CBC WITH DIFFERENTIAL (03/25/2024 1:23 PM LINING FELLER BLINDSTITCH) Blood Frank Singh MD HEMATOLOGY ORDERABLE S * CBC WITH DIFFERENTIAL (03/25/2024 10:28 AM LINING FELLER BLINDSTITCH) Blood Frank Singh MD HEMATOLOGY ORDERABLE S documented in this encounter Visit Diagnoses Not on filedocumented in this encounter Care Teams Sister Superior Relationship Specialty Start Date End Date Timothy Banks MD [address] [place] [address] PCP - General Family Practice 02/01/24 documented as of this encounter
--- OUTSIDE RECORDS SUMMARY | 2024-04-11 13:57 | XMS_ITS | Encounter Summary ---
Author Organization [facility] [employer] [facility] Address [address] [place] [address] Care Team Providers Care Loop Drier Operator Name Role Phone Timothy Banks MD Primary Care Provider Encounter Details Date Type Department Care Team (Late st Contact Info) Description 02/01/2024 Orders Only [facility] Oncology and Hematology - [place] [address] [place] [address] [address] [place] [address] Frank Singh MD [address] [facility] [address] [place] [address] Chronic anemia (Primary Dx); Leukopenia, unspecified type Social History Tobacco Use Types Packs/Day Years Used Date Smoking Tobacco: Never Smokeless Tobacco: Never Alcohol Use Standard Drinks/Week Comments Yes 0 (1 standard drink = 0.6 oz pur e alcohol) Very Ocasionally Sex and Gender Information Value Date Recorded Sex Assigned at Male 04/05/2024 3:07 PM CANNONEER Gender Identity Male 04/05/2024 3:07 PM CANNONEER Sexual Orientation Not on file documented as of this encounter Plan of Treatment Not on file documented as of this encounter Visit Diagnoses Diagnosis Chronic anemia- Primary Anemia, unspecified Leukopenia, unspecified type documented in this encounter Care Teams Loop Drier Operator Relationship Specialty Start Date End Date Timothy Banks MD [address] [place] [address] PCP - General Family Practice 02/01/24 documented as of this encounter
--- OUTSIDE RECORDS SUMMARY | 2024-04-11 13:57 | XMS_ITS | Encounter Summary ---
Author Organization [facility] Address [address] [place] [address] Care Team Providers Care Counter Supply Worker Name Role Phone Timothy Banks MD Primary Care Provider [phone] Encounter Details Date Type Department Care Team [...] Sex Assigned at Male 04/05/2024 3:07 PM TRACK SERVICE WORKER Gender Identity Male 04/05/2024 3:07 PM TRACK SERVICE WORKER Sexual Orientation Not on file documented as of this encounter Plan of Treatment Not on file documented as of this encounter Visit Diagnoses Not on filedocumented in this encounter Care Teams Counter Supply Worker Relationship Specialty Start Date End Date Timothy Banks MD [address] [place] [address] PCP - General Family Practice 02/01/24 documented as of this encounter
--- OUTSIDE RECORDS SUMMARY | 2024-04-11 13:57 | XMS_ITS | Encounter Summary ---
Author Organization [facility] [employer] [facility] Address [address] [place] [address] Care Team Providers Care Aircraft Cylinder Mechanic Name Role Phone Timothy Banks MD Primary Care Provider [phone] Encounter Details Date Type Department Care Team (Late st Contact Info) Description 02/26/2024 4:30 PM CORNER BRACE BLOCK MACHINE OPERATOR Telephone Check Up [facility] Oncology and Hematology - [place] [address] [facility] [address] [place] [address] Frank Singh MD [address] [facility] [address] [place] [address] Chronic anemia (Primary Dx) Social History Tobacco Use Types Packs/Day Years Used Date Smoking Tobacco: Never Smokeless Tobacco: Never Alcohol Use Standard Drinks/Week Comments Yes 0 (1 standard drink = 0.6 oz pur e alcohol) Very Ocasionally Sex and Gender Information Value Date Recorded Sex Assigned at Male 04/05/2024 3:07 PM CORNER BRACE BLOCK MACHINE OPERATOR Gender Identity Male 04/05/2024 3:07 PM CORNER BRACE BLOCK MACHINE OPERATOR Sexual Orientation Not on file documented as [...] care documented in this encounter 20 minutes. ER BRACE BLOCK MACHINE OPERATOR documented in this encounter Plan of Treatment Not on file documented as of this encounter Visit Diagnoses Diagnosis Chronic anemia- Primary Anemia, unspecified documented in this encounter Care Teams Aircraft Cylinder Mechanic Relationship Specialty Start Date End Date Timothy Banks MD [address] [place] [address] PCP - General Family Practice 02/01/24 documented as of this encounter
--- OUTSIDE RECORDS SUMMARY | 2024-04-11 13:57 | XMS_ITS | Encounter Summary ---
Author Organization [facility] [employer] [facility] Address [address] [place] [address] Care Team Providers Care Bushler Name Role Phone Timothy Banks MD Primary Care Provider Encounter Details Date Type Department Care Team (Late st Contact Info) Description 02/02/2024 Orders Only [facility] Oncology and Hematology - [place] [address] [facility] [address] [place] [address] Frank Singh MD [address] [facility] [address] [place] [address] Social History Tobacco Use Types Packs/Day Years Used Date Smoking Tobacco: Never Smokeless Tobacco: Never Alcohol Use Standard Drinks/Week Comments Yes 0 (1 standard drink = 0.6 oz pur e alcohol) Very Ocasionally Sex and Gender Information Value Date Recorded Sex Assigned at Male 04/05/2024 3:07 PM INTELLIGENCE INTERN Gender Identity Male 04/05/2024 3:07 PM INTELLIGENCE INTERN Sexual Orientation Not on file documented as [...] on filedocumented in this encounter Care Teams Bushler Relationship Specialty Start Date End Date Timothy Banks MD [address] [place] [place] [address] PCP - General Family Practice 02/01/24 documented as of this encounter
--- OUTSIDE RECORDS SUMMARY | 2024-04-11 13:57 | XMS_ITS | Encounter Summary ---
Author Organization [facility] [employer] [facility] Address [address] [place] [address] Care Team Providers Care Car Inspector Name Role Phone Timothy Banks MD Primary Care Provider [phone] Encounter Details Date Type Department Care Team (Late st Contact Info) Description 03/25/2024 Orders Only [facility] Oncology and Hematology - [place] [address] [facility] [address] [place] [address] Frank Singh MD [address] [facility] [address] [place] [address] 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 achieved remission Social History Tobacco Use Types Packs/Day Years Used Date Smoking Tobacco: Never Smokeless Tobacco: Never Alcohol Use Standard Drinks/Week Comments Yes 0 (1 standard drink = 0.6 oz pur e alcohol) Very Ocasionally Sex and Gender Information Value Date Recorded Sex Assigned at Male 04/05/2024 3:07 PM MANAGED CARE LIAISON Gender Identity Male 04/05/2024 3:07 PM MANAGED CARE LIAISON Sexual Orientation Not on file documented as of this encounter Plan of Treatment Not on file documented as of this encounter Visit Diagnoses Diagnosis 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 achieved remission documented in this encounter Care Teams Car Inspector Relationship Specialty Start Date End Date Timothy Banks MD [address] [place] [address] PCP - General Family Practice 02/01/24 documented as of this encounter
--- OUTSIDE RECORDS SUMMARY | 2024-04-11 13:57 | XMS_ITS | Encounter Summary ---
Author Organization [facility] [employer] [facility] Address [address] [place] [address] Care Team Providers Care Sole Inker Name Role Phone Timothy Banks MD Primary Care Provider [phone] Encounter Details Date Type Department Care Team (Late st Contact Info) Description 03/28/2024 Orders Only [facility] Oncology and Hematology - [place] [address] [facility] [address] [place] [address] Frank Singh MD [address] [facility] [address] [place] [address] Social History Tobacco Use Types Packs/Day Years Used Date Smoking Tobacco: Never Smokeless Tobacco: Never Alcohol Use Standard Drinks/Week Comments Yes 0 (1 standard drink = 0.6 oz pur e alcohol) Very Ocasionally Sex and Gender Information Value Date Recorded Sex Assigned at Male 04/05/2024 3:07 PM RAISIN WASHER Gender Identity Male 04/05/2024 3:07 PM RAISIN WASHER Sexual Orientation Not on file documented as of this encounter Plan of Treatment Not on file documented as of this encounter Procedures Procedure Name Priority Date/Time Associated Diagnosis Comments BASIC METABOLIC PANEL Routine 03/28/2024 1:31 PM RAISIN WASHER CBC WITH DIFFERENTIAL Routine 03/28/2024 1:23 PM RAISIN WASHER documented in this encounter Results * BASIC METABOLIC PANEL (03/28/2024 1:31 PM RAISIN WASHER) Blood Frank Singh MD CHEMISTRY ORDERABLES * CBC WITH DIFFERENTIAL (03/28/2024 1:23 PM RAISIN WASHER) Blood Frank Singh MD HEMATOLOGY ORDERABLE S documented in this encounter Visit Diagnoses Not on filedocumented in this encounter Care Teams Sole Inker Relationship Specialty Start Date End Date Timothy Banks MD [address] [place] [address] PCP - General Family Practice 02/01/24 documented as of this encounter
--- OUTSIDE RECORDS SUMMARY | 2024-04-11 13:57 | XMS_ITS | Encounter Summary ---
Author Organization [facility] [employer] [facility] Address [address] [place] [address] Care Team Providers Care Natural Fabricator Name Role Phone Timothy Banks MD Primary Care Provider [phone] Reason for Referral * Eval and Treat (Routine) - Open Specialty Diagnoses / Procedures Referred By Contac t Referred To Contact Hematology and Oncology Diagnoses Chronic anemia 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 achieved remission Procedures ND OFFICE/OUTPATIENT ESTABLISHED MOD MDM 30 MIN ND OFFICE/OUTPATIENT NEW MODERATE MDM 45 MINUTES Frank Singh MD [address] [place] [address] Referral ID Status Reason Start Date Expiration Date V isits Requested Visits Authorized [id number] Open STL CTS 02/22/2024 02/21/2025 1 1 STRIP FEEDER Reason for Visit * Reason Onset Date Comments Referral 02/22/2024 Encounter Details Date Type Department Care Team (Late st Contact Info) Description 02/22/2024 Telephone [facility] Oncology and Hematology - [place] [address] [place] [address] [address] [place] [address] Frank Singh MD [address] [place] [address] Referral Social History Tobacco Use Types Packs/Day Years Used Date Smoking Tobacco: Never Smokeless Tobacco: Never Alcohol Use Standard Drinks/Week Comments Yes 0 (1 standard drink = 0.6 oz pur e alcohol) Very Ocasionally Sex and Gender Information Value Date Recorded Sex Assigned at Male 04/05/2024 3:07 PM COLD STRIP FEEDER Gender Identity Male 04/05/2024 3:07 PM COLD STRIP FEEDER Sexual Orientation Not on file documented as of this encounter Miscellaneous Notes * Telephone Encounter - Brittany Retana - 02/22/2024 10:13 AM CST Referral orders placed. STRIP FEEDER * Telephone Encounter - Isidoro Retanaelle Kerry - 02/22/2024 10:12 AM CST ----- Message from Dr. Frank Singh sent at 02/21/2024 7:19 PM COLD STRIP FEEDER ----- Regarding: RE: Pathology Please refer patient to Dr. Workman for possible acute myeloid leukemia. ----- Message ----- From: Brittany Retana Sent: 02/21/2024 7:46 AM COLD STRIP FEEDER To: Frank Singh MD Subject: Pathology Can you please look over patients bone marrow pathology. Dr. Morton had me keeping an eye on it for when it came back. STRIP FEEDER documented in this encounter Plan of Treatment Scheduled Referrals Name Type Priority Associated Diagnoses Order Schedule AMB REFERRAL TO HEMATOLOGY ONCOLOGY Outpatient Referral Routine Chronic anemia 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 achieved remission Ordered: 02/22/2024 documented as of this encounter Visit Diagnoses Diagnosis Chronic anemia- Primary Anemia, unspecified 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 achieved remission documented in this encounter Care Teams Natural Fabricator Relationship Specialty Start Date End Date Timothy Banks MD [address] [place] [address] PCP - General Family Practice 02/01/24 documented as of this encounter
--- OUTSIDE RECORDS SUMMARY | 2024-04-11 13:58 | XMS_ITS | Encounter Summary ---
Author Organization [facility] Address [address] [place] [address] Care Team Providers Care Ocean Lifeguard Name Role Phone Timothy Banks MD Primary Care Provider [phone] Reason for Visit * Reason Comments Hospital Follow Up Encounter Details Date Type Department Care Team (Late st Contact Info) Description 01/23/2024 1:30 PM CDT Office Visit [facility] Cardiology [address] [place] [address] Ritu Adame NP [address] [place] [address] PSVT (paroxysmal supraventricular tachycardia) (HCC) (Primary Dx); Hospital discharge follow-up Social History Tobacco Use Types Packs/Day Years Used Date Smoking Tobacco: Never Smokeless Tobacco: Never Alcohol Use Standard Drinks/Week Comments Yes 0 (1 standard drink = 0.6 oz pur e alcohol) Sex and Gender Information Value Date Recorded Sex Assigned at Not on file Legal Sex Male 4:19 AM COMBO WELDER Gender Identity Male 01/12/2020 7:43 PM CDT [...] 1:[address] Alberto Ruvalcaba / [facility] Electrophysiologists [phone] documented in this encounter Ordered Prescriptions Prescription Sig Dispense Quantity Refills Last Filled Start Date End Date dilTIAZem CD 120 mg 24 hr capsule Take 1 capsule (120 mg total) by mouth daily 90 capsule 3 01/23/2024 documented in this encounter Progress Notes * Ritu Adame NP - 01/23/2024 1:30 PM CDT Images from the original note were not included. [facility] Medical [facility] Cardiology [address] [place] [address] Date of Visit: 01/23/2024 Patient ID: Russ [...] led him to have an echocardiogram at [facility] which was normal except for moderate LVH. He did have mild left atrial enlargement. Mild mitral, aortic and tricuspid regurgitation. Diastolic dysfunction was present. He does have a history of pulmonary embolism, DVT and [place] filter. He had a recurrent DVT in [...] dyspnea, orthopnea, palpitations Hospital follow-up visit with [facility] [employer] 01/23/2024: He was hospitalized with diverticulitis. He [...] MEDICAL recurrent DVT, gerd, s/p hiatal hernia [facility], ; Comments: [facility] 03/31/2016 - HX OTHER MEDICAL CKD; Comments: [facility] 03/31/2016 - Sleep apnea 2018 Past [...] months. 01/23/2024 SANDY Garcia- Nurse Practitioner with [facility] This note is dictated and transcribed using [employer]. Mobile Game Engineer variancesmay occur. Despite proofreading, typographical errors may [...] 01/23/2024 added in this encounter Care Teams Ocean Lifeguard Relationship Specialty Start Date End Date Timothy Banks MD PCP - General 07/08/16 documented as of this encounter
--- OUTSIDE RECORDS SUMMARY | 2024-04-11 13:58 | XMS_ITS | Encounter Summary ---
Author Organization [facility] Address [address] [facility] [address] [place] [address] Phone Care Team Providers Care Film Casting Operator Name Role Phone Timothy Banks MD Primary Care Provider + [phone] Reason for Visit * Oncology (Routine) - Closed Specialty Diagnoses / Procedures Referred By Contshakila t Referred To Contact Oncology Diagnoses 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) Hillary Gama MD [address] [place] [address] Phone: tel: fax: Hillary Gama MD [address] [place] [address] Phone: tel: fax: Referral ID Status Reason Start Date Expiration Date V isits Requested Visits Authorized [id number] Closed Specialty Services Required 04/10/2017 04/09/2024 99 99 Encounter Details Date Type Department Care Team (Latest Contact Info) Description 08/24/2023 10:00 AM CDT Office Visit [facility] Hematology [address] [facility] 7th [place] [address] [place] [address] Hillary Gama MD [address] [place] [address] Neutropenia, unspecified type (HCC) (Primary Dx); 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); prison current use of 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 Social History Tobacco Use Types Packs/Day Years Used Date Smoking Tobacco: Never Smokeless Tobacco: Never Alcohol Use Standard Drinks/Week Comments Yes 0 (1 standard drink = 0.6 oz pur e alcohol) Sex and Gender Information Value Date Recorded Sex Assigned at Not on file Legal Sex Male 4:19 AM UTILITY SYSTEMS REPAIRER OPERATOR Gender Identity Male 01/12/2020 7:43 PM [...] 2004, DVT/PE following hiatal repair status post [place] filter placement. Warfarin started for 6 months. [...] tendon injury in his right foot. His rug hooker recommended a brace. Their sons surprised them in [place]. They are going to [place] this summer. ALLERGIES: Allergies Allergen Reactions Iv [...] Active Problem List Diagnosis Ventricular premature beats sql manager current use of 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 RBBB Venous [...] AM CDT Performed at: ??01 - [facility] [address] ??[id number] Commissioning Engineer: Francisco Javier Stewart PhD, Phone: ??[phone] us Brittany Lerner NP LAB BLOOD ORDERABLES Final Result [facility] - 01 * Rheumatoid factor (09/20/2023 9:47 AM CDT) RA Latex Turbid. <10.0 <14.0 IU/mL [facility] - 01 Blood 09/20/2023 9:47 AM CDT 09/20/2023 Narrative [facility] - 09/21/2023 7:12 AM CDT Performed at: ??01 - [address] ??[id number] Commissioning Engineer: Francisco Javier Stewart PhD, Phone: ??[phone] Brittany Lerner POLITICAL GEOGRAPHER LAB BLOOD ORDERABLES Final Result Performing Organization Address [facility] de Phone Number [facility] - 01 * Homocysteine (09/20/2023 9:47 AM CDT) Pathologist [facility] Homocysteine 14.9 0.0 - 19.2 umol/L [facility] - 01 Blood 09/20/2023 9:47 AM CDT 09/20/2023 Narrative [facility] - 09/21/2023 7:12 AM CDT Performed at: ??[address] ??[id number] Commissioning Engineer: Francisco Javier Stewart PhD, Phone: ??[phone] Brittany Lerner POLITICAL GEOGRAPHER LAB BLOOD ORDERABLES Final Result Performing Organization Address [facility] de Phone Number [facility] - 01 * Copper, serum (09/20/2023 9:47 AM CDT) [facility] Copper, Serum 75 69 - 132 ug/dL [facility] Comment:Detection Limit = 5 Blood 09/20/2023 9:47 AM CDT 09/20/2023 Narrative [facility] - 09/22/2023 3:09 PM CDT Test(s) 119202-Fqxkce, Serum or Plasma was developed and its performance characteristics determined by [facility]. It has not been cleared or approved by the Food and Drug Administration. Performed at: ??01 - [address] ??[id number] Commissioning Engineer: Irwin Sawyer MD, Phone: ??[phone] Brittany Lerner POLITICAL GEOGRAPHER LAB BLOOD ORDERABLES Final Result [facility] - 01 * MARLINE ab ql w/rflx to MARLINE qn (09/20/2023 9:47 AM CDT) MARLINE, direct Negative Negative [facility] - 01 Blood 09/20/2023 9:47 AM CDT 09/20/2023 Narrative [facility] - 09/21/2023 1:09 PM CDT Performed at: ??01 - [facility] [address] ??[id number] Commissioning Engineer: Francisco Javier Stewart PhD, Phone: ??[phone] Brittany Lerner POLITICAL GEOGRAPHER LAB BLOOD ORDERABLES Final Result Performing Organization Address City/[facility]/ZIP Co de Phone Number [facility] - documented in this encounter Visit Diagnoses Diagnosis Neutropenia, unspecified type (HCC)- Primary 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) prison current use of 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 documented in this encounter Orders Appointment Requests Count Last Ordered Date Fi rst Ordered Date ONCBCN CLINIC APPOINTMENT REQUEST 2 024 [facility] LAB APPOINTMENT 1 08/24/2023 documented in this encounter Care Teams Film Casting Operator Relationship Specialty Start Date End Date Timothy Banks MD PCP - General 07/08/16 documented as of this encounter
--- OUTSIDE RECORDS SUMMARY | 2024-04-11 13:58 | XMS_ITS | Encounter Summary ---
Author Organization [facility] Address [address] [place] [address] Phone Care Team Providers Care Assembler Fitter Name Role Phone Timothy Banks MD Primary Care Provider [phone] Encounter Details Date Type Department Care Team (Late st Contact Info) Description 01/25/2024 Telephone [facility] Cardiology [facility] 8th [place] [address] [place] [address] Marylin Dowell Social History Tobacco Use Types Packs/Day Years Used Date Smoking Tobacco: Never Smokeless Tobacco: Never Alcohol Use Standard Drinks/Week Comments Yes 0 (1 standard drink = 0.6 oz pur e alcohol) Sex and Gender Information Value Date Recorded Sex Assigned at Not on file Legal Sex Male 4:19 AM FORM CARPENTER Gender Identity Male 01/12/2020 7:43 PM CDT [...] on filedocumented in this encounter Care Teams Assembler Fitter Relationship Specialty Start Date End Date Timothy Banks MD PCP - General 07/08/16 documented as of this encounter
--- OUTSIDE RECORDS SUMMARY | 2024-04-11 13:58 | XMS_ITS | Encounter Summary ---
Author Organization [facility] Healthcare Address [address] [place] [address] Care Team Providers Care Catalogue Compiler Name Role Phone Timothy Banks MD Primary Care Provider [phone] Encounter Details Date Type Department Care Team (Late st Contact Info) Description 01/10/2024 Orders Only [facility] Medical Group Cardiology [address] [facility] [address] [place] [address] Bebeto Reynoso MD [address] [id number] Social History Tobacco Use Types Packs/Day Years Used Date Smoking Tobacco: Never Smokeless Tobacco: Never Alcohol Use Standard Drinks/Week Comments Yes 0 (1 standard drink = 0.6 oz pur e alcohol) Sex and Gender Information Value Date Recorded Sex Assigned at Not on file Legal Sex Male 4:19 AM SUPERVISOR LOCOMOTIVE Gender Identity Male 01/12/2020 7:43 PM CDT [...] on filedocumented in this encounter Care Teams Catalogue Compiler Relationship Specialty Start Date End Date Timothy Banks MD PCP - General 07/08/16 documented as of this encounter
--- OUTSIDE RECORDS SUMMARY | 2024-04-11 13:58 | XMS_ITS | Encounter Summary ---
Author Organization [facility] Address [address] [place] [address] Phone Care Team Providers Care Decorator Lighting Fixtures Name Role Phone Timothy Banks MD Primary Care Provider + [phone] Reason for Visit * Oncology (Routine) - Closed Specialty Diagnoses / Procedures Referred By Contac t Referred To Contact Oncology Diagnoses 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) Procedures ONCBCN ARM DRAW APPT ONC LAB ONLY Hillary Gama MD [address] [place] [address] Phone: tel: fax: Hillary Gama MD [address] [address] Phone: tel: fax: Referral ID Status Reason Start Date Expiration Date V isits Requested Visits Authorized [id number] Closed Specialty Services Required 04/10/2018 04/09/2024 99 99 Encounter Details Date Type Department Care Team (Late st Contact Info) Description 08/24/2023 9:15 AM CDT Lab [facility] Oncology [address] [facility] 7th [place] [address] [place] [address] 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); continuous churn buttermaker current use of 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 Social History Tobacco Use Types Packs/Day Years Used Date Smoking Tobacco: Never Smokeless Tobacco: Never Alcohol Use Standard Drinks/Week Comments Yes 0 (1 standard drink = 0.6 oz pur e alcohol) Sex and Gender Information Value Date Recorded Sex Assigned at Not on file Legal Sex Male 4:19 AM LIFE ENRICHMENT DIRECTOR Gender Identity Male 01/12/2020 7:43 PM CDT Sexual Orientation Straight 01/12/2020 7: 43 PM CDT documented as of this encounter Plan of Treatment Not on file documented as of this encounter Visit Diagnoses Diagnosis 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) continuous churn buttermaker current use of 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 documented in this encounter Orders Appointment Requests Count Last Ordered Date Fi rst Ordered Date ONCBCN LAB APPOINTMENT 1 08/24/2023 documented in this encounter Care Teams Decorator Lighting Fixtures Relationship Specialty Start Date End Date Timothy Banks MD PCP - General 07/08/16 documented as of this encounter
--- OUTSIDE RECORDS SUMMARY | 2024-04-11 13:58 | XMS_ITS | Encounter Summary ---
Author Organization [facility] Healthcare Address [address] [place] [address] Care Team Providers Care Junior Php Developer Name Role Phone Timothy Banks MD Primary Care Provider [phone] Reason for Referral * Consultation (Routine) - Authorized Specialty Diagnoses / Procedures Referred By Contac t Referred To Contact Cardiology Diagnoses SVT (supraventricular tachycardia) (HCC) Ritu Adame NP [address] [facility] [address] [address] Phone: tel: fax: Alberto Moffett MD [facility] [address] [address] Phone: tel: fax: Referral ID Status Reason Start Date Expiration Date Visits Requested Visits Authorized [id number] Authorized Specialty Services Required 4 02/21/2025 1 1 Question Answer Are you referring this patient to the [facility] Medical Group Atrial Fibrillation clinic at [facility]? No Please select the performing region: [facility] (All Locations) [167] To provider: ALBERTO MOFFETT [[id number]] # of visits: 1 Comments New pt referral for SVT. Please call pt for an appt thank you! Encounter Details Date Type Department Care Team (Late st Contact Info) Description 01/23/2024 Telephone [facility] Medical Group Cardiology [address] [facility] [address] [phone] Ritu Adame NP [address] [facility] [address] [place] [address] Social History Tobacco Use Types Packs/Day Years Used Date Smoking Tobacco: Never Smokeless Tobacco: Never Alcohol Use Standard Drinks/Week Comments Yes 0 (1 standard drink = 0.6 oz pur e alcohol) Sex and Gender Information Value Date Recorded Sex Assigned at Not on file Legal Sex Male 4:19 AM ELEMENTARY CLASSROOM TEACHER Gender Identity Male 01/12/2020 7:43 PM CDT Sexual Orientation Straight 01/12/2020 7: 43 PM CDT documented as of this encounter Miscellaneous Notes * Telephone Encounter - Eve Sloan RN - 01/23/2024 2:05 PM CDT Referral placed to Dr. Moffett at [place] for SVT per CT. She has already [...] dysrhythmias documented in this encounter Care Teams Junior Php Developer Relationship Specialty Start Date End Date Timothy Banks MD PCP - General 07/08/16 documented as of this encounter
--- OUTSIDE RECORDS SUMMARY | 2024-04-11 13:58 | XMS_ITS | Clinical Summary ---
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 1 06/01/2015 [...] Department Care Team Description 03/27/2024 3:15 PM LOOM FIXER HELPER Office Visit [facility] Cardiology [address] [facility] [address] [place] [address] Jayro Kaminski MD SVT (supraventricular tachycardia) (HCC) (Primary Dx); QAMAR (obstructive sleep apnea); prison current use of 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; RBBB; Hypertensive left ventricular hypertrophy, without heart failure; LVH (left ventricular hypertrophy); Bilateral lower extremity edema 03/22/2024 Telephone [facility] Hematology [facility] Floor 6 [place] [address] Adilene Gonsalves, KEVIN 02/02/2024 Telephone [facility] Cardiology [address] [place] [address] for Advanced Medicine 8th [place] [address] [place] [address] Sally Wisdom 01/31/2024 Telephone [facility] Hematology [address] [facility] Floor [address] [place] [address] Adilene Gonsalves, KEVIN 01/25/2024 Telephone [facility] Cardiology [address] [place] [address] for Advanced Medicine 8th [place] [address] [place] [address] Alberto Gallegos MD 01/25/2024 Telephone [facility] Cardiology [address] [place] [address] for Advanced Medicine 8th [place] [address] [place] [address] Marylin Dowell 01/23/2024 1:30 PM CDT Office Visit [facility] Cardiology 10 [facility] [address] [place] [phone] Ritu Adame NP PSVT (paroxysmal supraventricular tachycardia) (HCC) (Primary Dx); Hospital discharge follow-up 01/23/2024 Telephone [facility] Cardiology [address] [place] [address] Ritu Adame, JOSÉ MIGUEL 01/15/2024 Orders Only [facility] Cardiology [address] [place] [address] Virginia Lester, JOSÉ MIGUEL 01/11/2024 Telephone [facility] [address] [facility] [address] [place] [address] Jayro Kaminski MD 01/10/2024 Orders Only [facility] Cardiology [facility] [address] [place] [address] Bebeto Reynoso MD from Last 3 Months Immunizations Name [...] Medical recurrent DVT, gerd, s/[facility], ; Comments: [facility] 03/31/2016 - Hx Other Medical CKD; Comments: [facility] 03/31/2016 - GERD (gastroesophageal reflux disease) 1974 Cataract 2018 Chronic bronchitis (HCC) ? Heart disease 2016 Chronic kidney disease 2010 Sleep apnea 2018 Family History Medical History Relation Name Comments Alzheimer's disease Brother Emmett [place] Alzheimer's disease Father Jeffrey Barrios Erlin Alzheimer's disease Mother Daisy [place] Alzheimer's disease [...] on file Legal Sex Male 4:19 AM LOOM FIXER HELPER Gender Identity Male 01/12/2020 7:43 PM CDT Sexual Orientation Straight 01/12/2020 7: 43 PM CDT Obstetrics History Last Filed Vital Signs Vital Sign Reading Time Taken Comments Blood Pressure 128/62 03/27/2024 3:01 PM LOOM FIXER HELPER Pulse 80 03/27/2024 3:01 PM LOOM FIXER HELPER Temperature 36.3 ??C (97.4 ??F) 08/24/2023 9:29 AM CD T Respiratory Rate 18 08/24/2023 9:29 AM CDT Oxygen Saturation 96% 03/27/2024 3:01 PM LOOM FIXER HELPER Inhaled Oxygen Concentration - - Weight 102.5 kg (226 lb) 03/27/2024 3:01 PM LOOM FIXER HELPER Height 185.4 cm (6' 1 ) 03/27/2024 3:01 PM LOOM FIXER HELPER Body Mass Index 29.82 03/27/2024 3:01 PM LOOM FIXER HELPER Plan of Treatment Health Maintenance Due Date [...] 09/17/2018 Pneumococcal vaccine 65+ Completed 09/17/2018, 08/08 Insurance [address] [place] [address] [employer]ET MEDICARE [address] [place] [address] [facility]IC[facility] [address] [place] [address] T MEDICARE Care Teams Blood Bank Credit Clerk Relationship Specialty Start Date End Date Timothy Banks MD [facility] - General 07/08/16
--- OUTSIDE RECORDS SUMMARY | 2024-04-11 13:58 | XMS_ITS | Encounter Summary ---
Author Organization [facility] Address [address] [place] [address] Care Team Providers Care District Ranger Name Role Phone Timothy Banks MD Primary Care Provider [phone] Encounter Details Date Type Department Care Team (Late st Contact Info) Description 01/08/2024 Telephone [facility] [address] [place] [address] Bogdan Nguyễn MD [address] [place] [address] Social History Tobacco Use Types Packs/Day Years Used Date Smoking Tobacco: Never Smokeless Tobacco: Never Alcohol Use Standard Drinks/Week Comments Yes 0 (1 standard drink = 0.6 oz pur e alcohol) Sex and Gender Information Value Date Recorded Sex Assigned at Not on file Legal Sex Male 4:19 AM LEARNING SUPPORT TEACHER Gender Identity Male 01/12/2020 7:43 PM [...] on filedocumented in this encounter Care Teams District Ranger Relationship Specialty Start Date End Date Timothy Banks MD PCP - General 07/08/16 documented as of this encounter
--- OUTSIDE RECORDS SUMMARY | 2024-04-11 13:58 | XMS_ITS | Referral Summary ---
Author Organization [facility] [address] [facility] 162 Address [address] [place] [address] Care Team Providers Care Pantograph I Engraver Name Role Phone Timothy Banks MD Primary Care Provider [phone] Encounters Date Type Department Care Team Description 03/27/2024 3:15 PM CARGOMAN Office Visit [facility] Medical Group Cardiology [address] [facility] [address] [place] [address] Jayro Kaminski MD SVT (supraventricular tachycardia) (HCC) (Primary Dx); QAMAR (obstructive sleep apnea); 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; RBBB; Hypertensive left ventricular hypertrophy, without heart failure; LVH (left ventricular hypertrophy); Bilateral lower extremity edema 03/22/2024 Telephone [facility] Hematology [address] [facility] Floor [address] [place] [phone] Adilene Gonsalves, KEVIN 02/02/2024 Telephone [facility] Cardiology [facility] 8th [place] [address] [place] [phone] Sally Wisdom 01/31/2024 Telephone [facility] Hematology [address] [facility] Floor [address] [place] [phone] Adilene Gonsalves, KEVIN 01/25/2024 Telephone [facility] Cardiology [facility] 8th [place] [address] [place] [phone] Alberto Gallegos MD 01/25/2024 Telephone [facility] Cardiology [facility] 8th [place] [address] [place] [phone] Marylin Dowell 01/23/2024 Telephone [facility] Cardiology [address] [place] [address] [address] [place] [address] Ritu Adame NP 01/23/2024 1:30 PM CDT Office Visit [facility] Cardiology [address] [place] [address] [address] [place] [phone] Ritu Adame NP PSVT (paroxysmal supraventricular tachycardia) ([facility]) (Primary Dx); Hospital discharge follow-up 01/15/2024 Orders Only [facility] Cardiology [address] [place] [address] [place] [phone] Virginia Lester NP 01/11/2024 Telephone [facility] Cardiology [address] [place] [address] [place] [address] Jayro Kaminski MD 01/10/2024 Orders Only [facility] Cardiology [address] [place] [address] [place] [address] Bebeto Reynoso MD from Last 3 Months Allergies Active [...] 2 Active apixaban (ELIQUIS) 5 mg tabletIndications :snf current use of 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 Take 1 [...] chest pain 07/29/2022 History of COVID-19 07/20/2020 QMAAR (obstructive sleep apnea) 08/28/2018 Bilateral lower extremity edema 08/28/2018 Snoring 02/21/2018 Hypersomnolence 02/21/2018 Tiredness 02/21/2018 Other fatigue 02/21/2018 Cardiac arrhythmia 10/28/2016 Lightheadedness 06/24/2016 Overview (09/02/2016): Lightheadedness Ventricular premature beats 03/31/2016 Overview (07/21/2016): Premature ventricular contraction 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 1 06/01/2015 [...] on file Legal Sex Male 4:19 AM CARGOMAN Gender Identity Male 01/12/2020 7:43 PM CDT Sexual Orientation Straight 01/12/2020 7: 43 PM CDT Last Filed Vital Signs Vital Sign Reading Time Taken Comments Blood Pressure 128/62 03/27/2024 3:01 PM CARGOMAN Pulse 80 03/27/2024 3:01 PM CARGOMAN Temperature 36.3 ??C (97.4 ??F) 08/24/2023 9:29 AM CD T Respiratory Rate 18 08/24/2023 9:29 AM CDT Oxygen Saturation 96% 03/27/2024 3:01 PM CARGOMAN Inhaled Oxygen Concentration - - Weight 102.5 kg (226 lb) 03/27/2024 3:01 PM CARGOMAN Height 185.4 cm (6' 1 ) 03/27/2024 3:01 PM CARGOMAN Body Mass Index 29.82 03/27/2024 3:01 PM CARGOMAN Plan of Treatment Not on file Insurance [address] [place] [id number] [facility] MEDICARE [address] [place] [address] [facility] MEDICARE [address] [phone] [facility] MEDICARE Care Teams Pantograph I Engraver Relationship Specialty Start Date End Date Timothy Banks MD PCP - General 07/08/16
--- OUTSIDE RECORDS SUMMARY | 2024-04-11 13:58 | XMS_ITS | Encounter Summary ---
Author Organization [facility] Address [address] [place] [address] Phone Care Team Providers Care Maintenance Plumber Name Role Phone Timothy Banks MD Primary Care Provider [phone] Encounter Details Date Type Department Care Team (Late st Contact Info) Description 02/02/2024 Telephone [facility] Cardiology [facility] 8th [place] [address] [place] [address] Sally Wisdom Social History Tobacco Use Types Packs/Day Years Used Date Smoking Tobacco: Never Smokeless Tobacco: Never Alcohol Use Standard Drinks/Week Comments Yes 0 (1 standard drink = 0.6 oz pur e alcohol) Sex and Gender Information Value Date Recorded Sex Assigned at Not on file Legal Sex Male 4:19 AM FUSION OPERATOR Gender Identity Male 01/12/2020 7:43 PM [...] 02/02/2024 8:56 AM CDT IOV 04/25/24 at [facility] with Dr. Gallegos * Telephone Encounter [...] you treated? Have you ever seen a Margarine Churn Operator in an office setting? [x] [] Dr. [...] Cath) [x] [] Echo, EKG, cath 09/2022 [place], [place] Have you ever had a sleep study? [x] [] Do you have a device? If yes what type? (Pacemaker, Defibrillator, Implanted Loop Recorder) [] [x] If yes, where and when was device put in? Trolley Operator? ([employer], [employer], [place]) Appointment Date: Provider: [...] on filedocumented in this encounter Care Teams Maintenance Plumber Relationship Specialty Start Date End Date Timothy Banks MD PCP - General 07/08/16 documented as of this encounter
--- OUTSIDE RECORDS SUMMARY | 2024-04-11 13:58 | XMS_ITS | Encounter Summary ---
Author Organization [facility] Address [address] [place] [address] Phone Care Team Providers Care Artificial Limb Maker Name Role Phone Timothy Banks MD Primary Care Provider Encounter Details Date Type Department Care Team (Late st Contact Info) Description 01/25/2024 Telephone [facility] Cardiology [address] [facility] Advanced Medicine 8th [place] [address] [place] [address] Alberto Gallegos MD [address] [facility] [address] [place] [address] Social History Tobacco Use Types Packs/Day Years Used Date Smoking Tobacco: Never Smokeless Tobacco: Never Alcohol Use Standard Drinks/Week Comments Yes 0 (1 standard drink = 0.6 oz pur e alcohol) Sex and Gender Information Value Date Recorded Sex Assigned at Not on file Legal Sex Male 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
--- OUTSIDE RECORDS SUMMARY | 2024-04-11 13:58 | XMS_ITS | Encounter Summary ---
Author Organization [facility] Healthcare Address [address] [place] [address] Care Team Providers Care Aerospace Mechanic Name Role Phone Timothy Banks MD Primary Care Provider [phone] Encounter Details Date Type Department Care Team (Late st Contact Info) Description 01/15/2024 Orders Only [facility] Medical Group Cardiology [address] [place] [address] Virginia Lester NP [address] [place], [place] [id number] Social History Tobacco Use Types Packs/Day Years Used Date Smoking Tobacco: Never Smokeless Tobacco: Never Alcohol Use Standard Drinks/Week Comments Yes 0 (1 standard drink = 0.6 oz pur e alcohol) Sex and Gender Information Value Date Recorded Sex Assigned at Not on file Legal Sex Male 4:19 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
--- OUTSIDE RECORDS SUMMARY | 2024-04-11 13:58 | XMS_ITS | Encounter Summary ---
Author Organization [facility] Address [address] [place] [address] Phone Care Team Providers Care Venetian Blind Assembler Name Role Phone Timothy Banks MD Primary Care Provider [phone] Encounter Details Date Type Department Care Team (Late st Contact Info) Description 01/31/2024 Telephone [place] [address] [facility] [address] 6 [place] [address] Adilene Gonsalves RN Social History Tobacco Use Types Packs/Day Years Used Date Smoking Tobacco: Never Smokeless Tobacco: Never Alcohol Use Standard Drinks/Week Comments Yes 0 (1 standard drink = 0.6 oz pur e alcohol) Sex and Gender Information Value Date Recorded Sex Assigned at Not on file 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 Patient previous portal message was requesting sooner appointment. Called to inquire more information regarding the request for a sooner appointment. Provided contact information for a return phone call. documented in this encounter Plan of Treatment Not on file documented as of this encounter Visit Diagnoses Not on filedocumented in this encounter Care Teams Venetian Blind Assembler Relationship Specialty Start Date End Date Timothy Banks MD PCP - General 07/08/16 documented as of this encounter
--- OUTSIDE RECORDS SUMMARY | 2024-04-11 13:58 | XMS_ITS | Encounter Summary ---
Author Organization [facility] Healthcare Address [address] [place] [address] Care Team Providers Care Toy Electric Train Repairer Name Role Phone Timothy Banks MD Primary Care Provider [phone] Reason for Visit * Reason Comments SVT RBBB One mo f/u Encounter Details Date Type Department Care Team (Latest Contact Info) Description 03/27/2024 3:15 PM MANNEQUIN REFINISHER Office Visit [facility] Medical Group Cardiology [address] [facility] [address] [place] [address] Jayro Kaminski MD [address] [phone] SVT (supraventricular tachycardia) (HCC) (Primary Dx); QAMAR (obstructive sleep apnea); 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; RBBB; Hypertensive [...] on file Legal Sex Male 4:19 AM MANNEQUIN REFINISHER Gender Identity Male 01/12/2020 7:43 PM CDT Sexual Orientation Straight 01/12/2020 7: 43 PM CDT documented as of this encounter Last Filed Vital Signs Vital Sign Reading Time Taken Comments Blood Pressure 128/62 03/27/2024 3:01 PM MANNEQUIN REFINISHER Pulse 80 03/27/2024 3:01 PM MANNEQUIN REFINISHER Temperature - - Respiratory Rate - - Oxygen Saturation 96% 03/27/2024 3:01 PM MANNEQUIN REFINISHER Inhaled Oxygen Concentration - - Weight 102.5 kg (226 lb) 03/27/2024 3:01 PM MANNEQUIN REFINISHER Height 185.4 cm (6' 1 ) 03/27/2024 3:01 PM MANNEQUIN REFINISHER Body Mass Index 29.82 03/27/2024 3:01 PM MANNEQUIN REFINISHER documented in this encounter Ordered Prescriptions Prescription [...] led him to have an echocardiogram at [facility] which was normal except for moderate [...] dyspnea, orthopnea, palpitations Hospital follow-up visit with SAP BASIS ADMINISTRATOR 01/23/2024: He was hospitalized with diverticulitis. He [...] with AML. He is undergoing treatment at [facility]. From a cardiac perspective he has a few palpitations but otherwise no chest pain, syncope, presyncope, paroxysmal nocturnal dyspnea, orthopnea. Does have some swelling MEDICAL HISTORY Past Medical History: Diagnosis Date Cataract 2018 Chronic bronchitis (HCC) ? Chronic kidney disease 2009 GERD (gastroesophageal reflux disease) 1974 Heart disease 2016 HX OTHER MEDICAL recurrent DVT, gerd, s/p hiatal hernia [facility]; Comments: [facility] 03/31/2016 - HX OTHER MEDICAL CKD; Comments: [facility] 03/31/2016 - Sleep apnea 2018 Social [...] sooner as clinically indicated Jayro Kaminski MD, [facility] EQUIN REFINISHER documented in this encounter Plan of Treatment Not on file documented as of this encounter Visit Diagnoses Diagnosis SVT (supraventricular tachycardia) (HCC)- Primary Other specified cardiac dysrhythmias QAMAR (obstructive sleep apnea) Obstructive sleep apnea (adult) (pediatric) 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
--- OUTSIDE RECORDS SUMMARY | 2024-04-11 13:58 | XMS_ITS | Encounter Summary ---
Author Organization [facility] Healthcare Address [address] [place] [address] Care Team Providers Care Coal Hauler Operator Name Role Phone Timothy Banks MD Primary Care Provider [phone] Encounter Details Date Type Department Care Team (Latest Contact Info) Description 08/24/2023 7:27 AM CDT - 08/24/2023 11:59 PM CDT Hospital Encounter [facility] Advanced Medicine [facility] Advanced Medicine ([facility]) [address] [place] [phone] 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); correction current use of 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 Discharge Disposition: Discharge to home or self care Social History Tobacco Use Types Packs/Day Years Used Date Smoking Tobacco: Never Smokeless Tobacco: Never Alcohol Use Standard Drinks/Week Comments Yes 0 (1 standard drink = 0.6 oz pur e alcohol) Sex and Gender Information Value Date Recorded Sex Assigned at Not on file Legal Sex Male 4:19 AM SEXOLOGIST Gender Identity Male 01/12/2020 7:43 PM CDT [...] 08/24/2023 9:00 AM CDT 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) correction current use of 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 DIFFERENTIAL AUTO Routine 08/24/2023 9:0 0 AM CDT 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) correction current use of 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 CBC WITH AUTO DIFFERENTIAL Routine 08/24/2023 9:00 AM CDT 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) correction current use of 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 RETICULOCYTES Routine 08/24/2023 9:00 AM CDT 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) continuous churn buttermaker current use of 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 BASIC METABOLIC PANEL Routine 08/24/2023 9:00 AM CDT 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) correction current use of 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 documented in this encounter Results * (ABNORMAL) eGFR (08/24/2023 9:00 AM CDT) [facility] eGFR 56(L) >=60 mL/min/1. 73 m2 Comment: [...] was last reviewed 2021. Testing performed by: [facility], [address] [place] [phone] Blood 08/24/2023 9:00 AM CDT 08/24/2023 9:01 AM CDT Brittany Lerner CONTROL CENTER OPERATOR LAB BLOOD ORDERABLES Final Result Performing Organization Address City/State/[facility] Co de Phone Number [facility] Department of Laboratories [place], [place] [id number] * (ABNORMAL) Differential, auto (08/24/2023 9:00 AM CDT) Neutrophil abs 0.6(L) 1.5 - 6.6 K/cumm Comment:Testing performed by : [facility], [address] [place] [phone] Lymphocyte abs 1.1(L) 1.2 - 3.3 K/cumm AIME DOBBS Comment:Testing performed by : [facility], [address] [place] [phone] Monocyte abs 0.3 0.2 - 1.2 K/cumm CERMELLO BJ Comment:Testing performed by : [facility], [address] [place] [phone] Eosinophil abs 0.1 0.0 - 0.5 K/cumm CERMELLO BJ Comment:Testing performed by : [facility], [address] [place] [phone] Basophil abs 0.0 0.0 - 0.2 K/cumm CERMELLO BJ Comment:Testing performed by : [facility], [address] [place] [phone] Neutrophil pct 26.4 % CERMELLO BJ Comment: Interpretive Data Percent cell count reference ranges are not reported, since discordance with absolute values may lead to misinterpretation of CBC data. Current Interpretive Data was last revised on 2017. Testing performed by: [facility], [address] [place] [phone] Lymphocyte pct 54.0 % CERMELLO BJ Comment: Interpretive Data Percent cell count reference ranges are not reported, since discordance with absolute values may lead to misinterpretation of CBC data. Current Interpretive Data was last revised on 2017. Testing performed by: [facility], [address] [place] [phone] Monocyte pct 14.6 % CERMELLO BJ Comment:Testing performed by : [address] [phone] Eosinophil pct 3.7 % CERMELLO BJ Comment:Testing performed by : [facility], [address] [place] [phone] Basophil pct 1.3 % CERNER BJ Comment:Testing performed by : [address] [phone] Blood 08/24/2023 9:00 AM CDT 08/24/2023 9:01 AM CDT Brittany Lerner CONTROL CENTER OPERATOR LAB BLOOD ORDERABLES Final Result [facility] [place] [address] * (ABNORMAL) CBC with auto differential (08/24/2023 9:00 AM CDT) WBC 2.1(L) 3.8 - 9.8 K/cumm Comment:Testing performed by : [facility], [address] [place] [phone] Hgb 13.3(L) 13.8 - 17.2 g/dL CERNER BJ Comment:Testing performed by : [facility], [address] [place] [phone] Hct 40.9 40.7 - 50.3 % CERNER BJ Comment:Testing performed by : [facility], [address] [place], [place] [phone] Plt 224 140 - 440 K/cumm CERNER BJ Comment:Testing performed by : [facility], [address] [place] [phone] MPV 10.4 6.8 - 10.4 fL CERNER BJ Comment:Testing performed by : [address] [phone] RBC 4.65 4.50 - 5.70 M/cumm CERNER BJ Comment:Testing performed by : [address] [phone] MCV 88.0 80.0 - 97.6 fL CERNER BJ Comment:Testing performed by : [facility], [address] [place] [phone] MCH 28.6 26.7 - 33.7 pg CERNER BJ Comment:Testing performed by : [address] [phone] MCHC 32.5(L) 32.7 - 35.5 g/dL CERNER BJ Comment:Testing performed by : [address] [phone] RDW CV 19.9(H) 11.8 - 14.6 % CERNER BJ Comment:Testing performed by : [facility], [address] [place] [phone] NRBC abs 0.00 0.00 - 0.01 K/cumm AIME [facility] Comment:Testing performed by : [facility], [address] [place] [phone] Blood 08/24/2023 9:00 AM CDT 08/24/2023 9:01 AM CDT Brittany Lerner CONTROL CENTER OPERATOR LAB BLOOD ORDERABLES Final Result Performing Organization Address [facility] de Phone Number [facility] [place] [address] * Reticulocyte Count (08/24/2023 9:00 AM CDT) [facility] Retics, absolute 0.038 0.020 - 0.087 M/cumm Comment:Testing performed by : [facility], [address] [place] [phone] Retics 0.82 0.50 - 1.80 % AIME [facility] Comment:Testing performed by : [facility], [address] [place] [phone] Blood 08/24/2023 9:00 AM CDT 08/24/2023 9:01 AM CDT Brittany Lerner CONTROL CENTER OPERATOR LAB BLOOD ORDERABLES Final Result Performing Organization Address [facility] de Phone Number [facility] [place] [address] * (ABNORMAL) Basic metabolic panel (08/24/2023 9:00 AM CDT) [facility] Sodium 144 135 - 145 mmol/L Comment:Testing performed by : [facility], [address] [place] [phone] Potassium, pl 4.7 3.3 - 4.9 mmol/L AIME [facility] Comment:Testing performed by : [facility], [address] [place] [phone] Chloride 107 97 - 110 mmol/L AIME DOBBS Comment:Testing performed by : [facility], [address] [place] [phone] CO2 27 22 - 32 mmol/L AIME [facility] Comment:Testing performed by : [facility], [address] [place] [phone] Anion gap 10 2 - 15 mmol/L AIME DOBBS Comment:Testing performed by : [facility], [address] [place] [phone] BUN 16 6 - 25 mg/dL AIME [facility] Comment:Testing performed by : [facility], [address] [place] [phone] Creatinine 1.31(H) 0.80 - 1.30 mg/dL AIME [facility] Comment:Testing performed by : [facility], [address] [place] [phone] Glucose 83 70 - 199 mg/dL AIME [...] was last revised 2022. Testing performed by: [facility], [address] [place] [phone] Calcium 9.5 8.5 - 10.3 mg/dL [facility]IME [facility] Comment:Testing performed by : [facility], [address] [place] [phone] Blood 08/24/2023 9:00 AM CDT 08/24/2023 9:01 AM CDT Brittany Lerner NP LAB BLOOD ORDERABLES Final Result [facility]IME [facility] [place] [address] documented in this encounter Visit Diagnoses Diagnosis 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) correction current use of 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 documented in this encounter Care Teams Coal Hauler Operator Relationship Specialty Start Date End Date Timothy Banks MD PCP - General 07/08/16 documented as of this encounter
--- OUTSIDE RECORDS SUMMARY | 2024-04-11 13:58 | XMS_ITS | Encounter Summary ---
Author Organization [facility] Address [address] [place] [address] Phone Care Team Providers Care Director Craft Center Name Role Phone Timothy Banks MD Primary Care Provider [phone] Encounter Details Date Type Department Care Team (Late st Contact Info) Description 03/22/2024 Telephone [place] [id number] [facility] [address] [place] [address] Adilene Gonsalves RN Social History Tobacco Use Types Packs/Day Years Used Date Smoking Tobacco: Never Smokeless Tobacco: Never Alcohol Use Standard Drinks/Week Comments Yes 0 (1 standard drink = 0.6 oz pur e alcohol) Sex and Gender Information Value Date Recorded Sex Assigned at Not on file Legal Sex Male 4:19 AM ACCOUNT MANAGER TRAINEE Gender Identity Male 01/12/2020 7:43 PM CDT Sexual Orientation Straight 01/12/2020 7: 43 PM CDT documented as of this encounter Miscellaneous Notes * Telephone Encounter - Adilene Gonsalves RN - 03/22/2024 10:35 AM ACCOUNT MANAGER TRAINEE Called and spoke with patient regarding voicemail left on nurses line requesting his lab appointment be cancelled on 03/28. Patient stated that he was able to cancel upcoming return office appointment but was unable to cancel lab appointment. 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 Patient has office number in case any questions or concerns arise. UNT MANAGER TRAINEE UNT MANAGER TRAINEE documented in this encounter Plan of Treatment Not on file documented as of this encounter Visit Diagnoses Not on filedocumented in this encounter Care Teams Director Craft Center Relationship Specialty Start Date End Date Timothy Banks MD PCP - General 07/08/16 documented as of this encounter
--- OUTSIDE RECORDS SUMMARY | 2024-04-11 13:58 | XMS_ITS | Encounter Summary ---
Author Organization [facility] Healthcare Address [address] [place] [address] Care Team Providers Care Power Transformer Inspector Name Role Phone Timothy Banks MD Primary Care Provider [phone] Encounter Details Date Type Department Care Team (Late st Contact Info) Description 01/11/[address] [facility] Medical Group Cardiology [address] [place] [address] Jayro Kaminski MD [address] [phone] Social History Tobacco Use Types Packs/Day Years Used Date Smoking Tobacco: Never Smokeless Tobacco: Never Alcohol Use Standard Drinks/Week Comments Yes 0 (1 standard drink = 0.6 oz pur e alcohol) Sex and Gender Information Value Date Recorded Sex Assigned at Not on file Legal Sex Male 4:19 AM FRENCH TUTOR Gender Identity Male 01/12/2020 7:43 PM CDT [...] on filedocumented in this encounter Care Teams Power Transformer Inspector Relationship Specialty Start Date End Date Timothy Banks MD PCP - General 07/08/16 documented as of this encounter
--- OUTSIDE RECORDS SUMMARY | 2024-04-11 13:59 | XMS_ITS | Encounter Summary ---
Author Organization [facility] Address [address] [place] [address] Care Team Providers Care Databases Software Consultant Name Role Phone Timothy Banks MD Primary Care Provider [phone] Encounter Details Date Type Department Care Team (Late st Contact Info) Description 10/12/2022 Orders Only [facility] Medical Group Cardiology [address] [place] [address] Reggie Jackson MD [address] [place] [address] Social History Tobacco Use Types Packs/Day Years Used Date Smoking Tobacco: Never Smokeless Tobacco: Never Alcohol Use Standard Drinks/Week Comments Yes 0 (1 standard drink = 0.6 oz pur e alcohol) Sex and Gender Information Value Date Recorded Sex Assigned at Not on file Legal Sex Male 4:19 AM AUDIT SPECIALIST Gender Identity Male 01/12/2020 7:43 PM [...] on filedocumented in this encounter Care Teams Databases Software Consultant Relationship Specialty Start Date End Date Timothy Banks MD PCP - General 07/08/16 documented as of this encounter
--- OUTSIDE RECORDS SUMMARY | 2024-04-11 13:59 | XMS_ITS | Encounter Summary ---
Author Organization [facility] Healthcare Address [address] [place] [address] Care Team Providers Care Machinist 2Nd Shift Name Role Phone Timothy Banks MD Primary Care Provider Encounter Details Date Type Department Care Team (Late st Contact Info) Description 11/30/2022 Orders Only [facility] Health Information Management [address] [place] [id number] Scanning, Provider Social History Tobacco Use Types Packs/Day Years Used Date Smoking Tobacco: Never Smokeless Tobacco: Never Alcohol Use Standard Drinks/Week Comments Yes 0 (1 standard drink = 0.6 oz pur e alcohol) Sex and Gender Information Value Date Recorded Sex Assigned at Not on file Legal Sex Male 4:19 AM CONTRACT OFFICER Gender Identity Male 01/12/2020 7:43 PM [...] on filedocumented in this encounter Care Teams Machinist 2Nd Shift Relationship Specialty Start Date End Date Timothy Banks MD PCP - General 07/08/16 documented as of this encounter
--- OUTSIDE RECORDS SUMMARY | 2024-04-11 13:59 | XMS_ITS | Encounter Summary ---
Author Organization [facility] Medical Group Address [address] [place] [address] Care Team Providers Care Maintenance Job Titles Name Role Phone Timothy Banks MD Primary Care Provider [phone] Encounter Details Date Type Department Care Team (Late st Contact Info) Description 11/14/2022 Telephone [facility] Medical Group Cardiology [address] [facility] [address] [place] [address] Jayro Kaminski MD [facility] [place] [phone] Social History Tobacco Use Types Packs/Day Years Used Date Smoking Tobacco: Never Smokeless Tobacco: Never Alcohol Use Standard Drinks/Week Comments Yes 0 (1 standard drink = 0.6 oz pur e alcohol) Sex and Gender Information Value Date Recorded Sex Assigned at Not on file Legal Sex Male 4:19 AM HOME CARE GIVER Gender Identity Male 01/12/2020 7:43 PM CDT Sexual Orientation Straight 01/12/2020 7: 43 PM CDT documented as of this encounter Miscellaneous Notes * Telephone Encounter - Eve Sloan RN - 11/14/2022 2:25 PM CDT LM on reviewing message from [facility]-advised pt to callback with any questions or [...] to stop his hydrochlorothiazide and to call [facility] to make him aware too. Pt said he doesn't check his BP at home but his has a cuff and will start c hecking it-advised him to check once a day about an hour or two after his medications and to keep alog. Will forward to [facility]. Please advise, thank you! * Telephone Encounter - Eve Sloan RN - 11/14/2022 11:52 AM CDT LM on requesting callback. * Telephone Encounter - Sarah Lao - 11/14/2022 10:03 AM CDT Pt reports on 11/12 he had exercised for about an hour and shortly after passed out. Requesting a call back to discuss. Contact:[phone] documented in this encounter Plan of Treatment Not on file documented as of this encounter Visit Diagnoses Not on filedocumented in this encounter Care Teams Maintenance Job Titles Relationship Specialty Start Date End Date Timothy Banks MD PCP - General 07/08/16 documented as of this encounter
--- OUTSIDE RECORDS SUMMARY | 2024-04-11 13:59 | XMS_ITS | Encounter Summary ---
Author Organization [facility] Healthcare Address [address] [place] [address] Care Team Providers Care Trap Setter Name Role Phone Timotyh Banks MD Primary Care Provider [phone] Reason for Visit * Reason Comments Follow-up 6 month follow up. Encounter Details Date Type Department Care Team (Latest Contact Info) Description 08/11/2023 9:45 AM CDT Office Visit [facility] Cardiology [address] [place] [address] Jayro Kaminski MD [address] [id number] Cardiac arrhythmia, unspecified cardiac arrhythmia type (Primary Dx); RBBB; QAMAR (obstructive sleep apnea); PSVT (paroxysmal supraventricular tachycardia) (HCC); snf current use of 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; 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) Social History Tobacco Use Types Packs/Day Years Used Date Smoking Tobacco: Never Smokeless Tobacco: Never Alcohol Use Standard Drinks/Week Comments Yes 0 (1 standard drink = 0.6 oz pur e alcohol) Sex and Gender Information Value Date Recorded Sex Assigned at Not on file Legal Sex Male 4:19 AM GRAIN INSPECTOR Gender Identity Male 01/12/2020 7:43 PM [...] led him to have an echocardiogram at [facility] which was normal except for moderate LVH. 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
--- OUTSIDE RECORDS SUMMARY | 2024-04-11 13:59 | XMS_ITS | Encounter Summary ---
Author Organization [facility] Address [address] [facility] [address] [place] [address] Phone Care Team Providers Care Bank Advisor Name Role Phone Timothy Banks MD Primary Care Provider [phone] Reason for Visit * Oncology (Routine) - Closed Specialty Diagnoses / Procedures Referred By Contshakila t Referred To Contact Oncology Diagnoses 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) Hillary Gama MD [address] [place] [address] Phone: tel: fax: Hillary Gama MD [facility] [address] [address] Phone: tel: fax: Referral ID Status Reason Start Date Expiration Date V isits Requested Visits Authorized [id number] Closed Specialty Services Required 04/10/2017 04/09/2024 99 99 Encounter Details Date Type Department Care Team (Latest Contact Info) Description 08/30/2022 9:45 AM CDT Office Visit [facility] Hematology [address] [facility] 7th [place] [address] [place] [address] Hillary Gama MD [address] [place] [address] 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); emt intermediate current use of 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 Social History Tobacco Use Types Packs/Day Years Used Date Smoking Tobacco: Never Smokeless Tobacco: Never Alcohol Use Standard Drinks/Week Comments Yes 0 (1 standard drink = 0.6 oz pur e alcohol) Sex and Gender Information Value Date Recorded Sex Assigned at Not on file Legal Sex Male 4:19 AM ELECTRICIAN BUS Gender Identity Male 01/12/2020 7:43 PM CDT [...] 2004, DVT/PE following hiatal repair status post [place] filter placement. Warfarin started for 6 months. [...] following hiatal hernia repair. This required a [place] filter placement, as well as groin venous [...] tendon injury in his right foot. His inside phone sales recommended a brace. He is going to [place] 3 weeks and taking river cruise. He will also go to [place] [employer] and see the [employer] play. ALLERGIES: No Known Allergies CURRENT MEDICATION: [...] Active Problem List Diagnosis Ventricular premature beats retirement current use of 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 RBBB Venous [...] - 145 mmol/L Comment:Testing performed by : [facility], [address] [place] [phone] Potassium, pl 4.7 3.3 - 4.9 mmol/L [facility] Comment:Testing performed by : [facility], [address] [place] [phone] Chloride 107 97 - 110 mmol/L [facility] Comment:Testing performed by : [address] [phone] CO2 27 22 - 32 mmol/L [facility] Comment:Testing performed by : [address] [phone] Anion gap 10 2 - 15 mmol/L [facility] Comment:Testing performed by : [address] [phone] BUN 16 6 - 25 mg/dL [facility] Comment:Testing performed by : [address] [phone] Creatinine 1.31(H) 0.80 - 1.30 mg/dL [facility] Comment:Testing performed by : [address] [phone] Glucose 83 70 - 199 mg/dL [facility] Comment: Interpretive Data Fasting glucose >/= [...] was last revised 2022. Testing performed by: [facility], [address] [place] [phone] Calcium 9.5 8.5 - 10.3 mg/dL [facility] Comment:Testing performed by : [facility], [address] [place] [phone] Blood 08/24/2023 9:00 AM CDT 08/24/2023 9:01 AM CDT Brittany Lerner NP LAB BLOOD ORDERABLES Final Result Performing Organization Address [facility] de Phone Number [facility] Department [place] [address] * Reticulocyte Count (08/24/2023 9:00 AM CDT) Retics, absolute 0.038 0.020 - 0.087 M/cumm Comment:Testing performed by : [facility], [address] [place] [phone] Retics 0.82 0.50 - 1.80 % [facility] Comment:Testing performed by : [facility], [address] [place] [phone] Blood 08/24/2023 9:00 AM CDT 08/24/2023 9:01 AM CDT Brittany Lerner NP LAB BLOOD ORDERABLES Final Result Performing Organization Address City/[facility]/ZIP Co de Phone Number [facility] [place] [address] * (ABNORMAL) CBC with auto differential (08/24/2023 9:00 AM CDT) WBC 2.1(L) 3.8 - 9.8 K/cumm Comment:Testing performed by : [facility], [address] [place] [address] Hgb 13.3(L) 13.8 - 17.2 g/dL [facility] Comment:Testing performed by : [place] [address] Hct 40.9 40.7 - 50.3 % [facility] Comment:Testing performed by : [facility], [address] [place] [address] Plt 224 140 - 440 K/cumm [facility] Comment:Testing performed by : [place] [address] MPV 10.4 6.8 - 10.4 fL [facility] Comment:Testing performed by : [place] [address] RBC 4.65 4.50 - 5.70 M/cumm [facility] Comment:Testing performed by : [place] [address] MCV 88.0 80.0 - 97.6 fL [facility] Comment:Testing performed by : [place] [address] MCH 28.6 26.7 - 33.7 pg [facility] Comment:Testing performed by : [place] [address] MCHC 32.5(L) 32.7 - 35.5 g/dL [facility] Comment:Testing performed by : [place] [address] RDW CV 19.9(H) 11.8 - 14.6 % [facility] Comment:Testing performed by : [place] [address] NRBC abs 0.00 0.00 - 0.01 K/cumm [facility] Comment:Testing performed by : [place] [address] Blood 08/24/2023 9:00 AM CDT 08/24/2023 9:01 AM CDT Brittany Lerner LAN MANAGER LAB BLOOD ORDERABLES Final Result [facility] Department [place] [address] documented in this encounter Visit Diagnoses Diagnosis 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) emt intermediate current use of 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 documented in this encounter Discontinued Medications Medication Sig Discontinue Reason Start Date End Da te apixaban (ELIQUIS) 5 mg tabletIndications:retirement current use of 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 Take 1 tablet (5 mg total) by mouth 2 (two) times a day Reorder 06/20/2022 08/30/2022 documented as of this encounter Orders Appointment Requests Count Last Ordered Date Fi rst Ordered Date ONCBCN CLINIC APPOINTMENT REQUEST 2 024 08/30/2022 ONCBCN LAB APPOINTMENT 1 08/24/2023 documented in this encounter Care Teams Bank Advisor Relationship Specialty Start Date End Date Timothy Banks MD PCP - General 07/08/16 documented as of this encounter
--- OUTSIDE RECORDS SUMMARY | 2024-04-11 13:59 | XMS_ITS | Encounter Summary ---
Author Organization [facility] Address [address] [place] [address] Care Team Providers Care Sales Recruiter Name Role Phone Timothy Banks MD Primary Care Provider [phone] Reason for Visit * Reason Comments RBBB SVT 6 mo f/u * Procedure (Routine) - Closed Specialty Diagnoses / Procedures Referred By Contac t Referred To Contact Cardiology Diagnoses RBBB Hypertensive left ventricular hypertrophy, without heart failure Atypical chest pain Abnormal stress ECG Reggie Jackson MD [address] [place], [place] [id number] Phone: tel: fax: [facility] Medical [facility] Cardiology [address] [place] [address] [place] [phone] Phone: tel: fax: Referral ID Status Reason Start Date Expiration Date V isits Requested Visits Authorized [id number] Closed Specialty Services Required 09/09/2022 03/08/2023 1 1 Encounter Details Date Type Department Care Team (Latest Contact Info) Description 02/02/2023 8:45 AM CDT Office Visit [facility] Cardiology [address] [place] [address] Jayro Kaminski MD [address] [address] Ventricular premature beats (Primary Dx); RBBB; Hypertensive left ventricular hypertrophy, without heart failure; Atypical chest pain; Abnormal stress ECG; emt intermediate current use of 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; QAMAR (obstructive sleep apnea) Social History Tobacco Use Types Packs/Day Years Used Date Smoking Tobacco: Never Smokeless Tobacco: Never Alcohol Use Standard Drinks/Week Comments Yes 0 (1 standard drink = 0.6 oz pur e alcohol) Sex and Gender Information Value Date Recorded Sex Assigned at Not on file 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 HX OTHER MEDICAL CKD; Comments: [facility] 03/31/2016 - ??? Sleep apnea 2017 Social [...] Moderate but no evidence of failure 4. emt intermediate current use of 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 No bleeding [...] sooner as clinically indicated Jayro Kaminski MD, [facility] documented in this encounter Plan of Treatment Not on file documented as of this encounter Visit Diagnoses Diagnosis Ventricular premature beats- Primary Other premature beats RBBB Hypertensive left ventricular hypertrophy, without heart failure Atypical chest pain Other chest pain Abnormal stress ECG emt intermediate current use of 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 QAMAR (obstructive [...] 02/02/2023 documented in this encounter Care Teams Sales Recruiter Relationship Specialty Start Date End Date Timothy Banks MD PCP - General 07/08/16 documented as of this encounter
--- OUTSIDE RECORDS SUMMARY | 2024-04-11 13:59 | XMS_ITS | Encounter Summary ---
Author Organization [facility] Address [address] [facility] [address] [place] [address] Care Team Providers Care Remote Computer Terminal Operator Name Role Phone Timothy Banks MD Primary Care Provider [phone] Reason for Visit * Diagnostic Imaging (Routine) - Closed Specialty Diagnoses / Procedures Referred By Contac t Referred To Contact Diagnoses Hypertensive left ventricular hypertrophy, without heart failure Atypical chest pain Procedures NM MPI SPECT (Rest and/or Stress) Multiple Studies Veena Malone MD [address] [address] Phone: tel: fax: Referral ID Status Reason Start Date Expiration Date Visits Re quested Visits Authorized [id number] Closed 07/29/2022 08/28/2023 1 1 Encounter Details Date Type Department Care Team (Latest Contact Info) Description 09/07/2022 9:15 AM CDT Ancillary Procedure [facility] Cardiology [address] [address] [address] [place] [address] Hypertensive left ventricular hypertrophy, without heart failure; Atypical chest pain Social History Tobacco Use Types Packs/Day Years Used Date Smoking Tobacco: Never Smokeless Tobacco: Never Alcohol Use Standard Drinks/Week Comments Yes 0 (1 standard drink = 0.6 oz pur e alcohol) Sex and Gender Information Value Date Recorded Sex Assigned at Not on file 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 [...] millicuries documented in this encounter Care Teams Remote Computer Terminal Operator Relationship Specialty Start Date End Date Timothy Banks MD PCP - General 07/08/16 documented as of this encounter
--- OUTSIDE RECORDS SUMMARY | 2024-04-11 13:59 | XMS_ITS | Encounter Summary ---
Author Organization [facility] Medical [facility] Address [address] [place] [address] Care Team Providers Care Still Operator Name Role Phone Timothy Banks MD Primary Care Provider [phone] Reason for Referral * Procedure (Routine) - Closed Specialty Diagnoses / Procedures Referred By Contac t Referred To Contact Cardiology Diagnoses RBBB Hypertensive left ventricular hypertrophy, without heart failure Atypical chest pain Abnormal stress ECG Reggie Jackson MD [address] [facility] [address] [place] [address] Phone: tel: fax: [facility] Cardiology [address] [facility] [address] [place] [address] Phone: tel: fax: Referral ID Status Reason Start Date Expiration Date V isits Requested Visits Authorized [id number] Closed Specialty Services Required 09/09/2022 03/08/2023 1 1 Question Answer Please select the performing region: [facility] Medical [facility] [[id number]] Please select the performing department: [facility] [[id number]] # of visits: 1 Comments PROCEDURE/TEST ORDERED:[facility] LOCATION: DATE OF SERVICE: 10/07 INSURANCE: [employer] Medicare DIAGNOSIS: abn stress ORDERING PROVIDER: Manuel ADDITIONAL DETAILS: Encounter Details Date Type Department Care Team (Late st Contact Info) Description 09/07/2022 Telephone [facility] Cardiology [address] [facility] [address] [place] [phone] Jayro Kaminski MD [address] [facility] [address] [phone] Social History Tobacco Use Types Packs/Day Years Used Date Smoking Tobacco: Never Smokeless Tobacco: Never Alcohol Use Standard Drinks/Week Comments Yes 0 (1 standard drink = 0.6 oz pur e alcohol) Sex and Gender Information Value Date Recorded Sex Assigned at Not on file 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 Pt has a 2 week trip scheduled to [facility] in a week-[facility] is aware and said pt can [...] ECG documented in this encounter Care Teams Still Operator Relationship Specialty Start Date End Date Timothy Banks MD PCP - General 07/08/16 documented as of this encounter
--- OUTSIDE RECORDS SUMMARY | 2024-04-11 14:00 | XMS_ITS | Encounter Summary ---
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
--- OUTSIDE RECORDS SUMMARY | 2024-04-11 14:00 | XMS_ITS | Encounter Summary ---
Author Organization [facility] Address [address] [place] [address] Phone Care Team Providers Care Title Inspector Name Role Phone Timothy Banks MD Primary Care Provider [phone] Reason for Visit * Oncology (Routine) - Closed Specialty Diagnoses / Procedures Referred By Marilee t Referred To Contact Oncology Diagnoses 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) Procedures ONCBCN ARM DRAW APPT ONC LAB ONLY Hillary Gama MD [address] [place] [address] Phone: tel: fax: Hillary Gama MD [address] [address] Phone: tel: fax: Referral ID Status Reason Start Date Expiration Date V isits Requested Visits Authorized [id number] Closed Specialty Services Required 04/10/2018 04/09/2024 99 99 Encounter Details Date Type Department Care Team (Late st Contact Info) Description 09/03/2019 9:45 AM CDT Lab 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 Gender Identity Male 01/12/2020 7:43 PM CDT [...] K/cumm CERNER BJ Comment:Testing performed by : [facility], [address] [place] [phone] Lymphocyte abs 1.3 1.2 - 3.3 K/cumm [facility] Comment:Testing performed by : [facility], [address] [place] [phone] Monocyte abs 0.8 0.2 - 1.2 K/cumm [facility] Comment:Testing performed by : [facility], [address] [place] [phone] Eosinophil abs 0.3 0.0 - 0.5 K/cumm C[facility] Comment:Testing performed by : [facility], [address] [place] [phone] Basophil abs 0.0 0.0 - 0.2 K/cumm CERNER BJ Comment:Testing performed by : [facility], [address] [place] [phone] Neutrophil pct 53.4 % AIME DOBBS Comment: Interpretive Data Percent cell count reference ranges are not reported, since discordance with absolute values may lead to misinterpretation of CBC data. Current Interpretive Data was last revised on 2017. Testing performed by: [facility], [address] [place] [phone] Lymphocyte pct 24.4 % AIME DOBBS Comment: Interpretive Data Percent cell count reference ranges are not reported, since discordance with absolute values may lead to misinterpretation of CBC data. Current Interpretive Data was last revised on 2017. Testing performed by: [facility], [address] [place] [phone] Monocyte pct 16.3 % AIME ODBBS Comment:Testing performed by : [facility], [address] [place] [phone] Eosinophil pct 5.3 % AIME DOBBS Comment:Testing performed by : [facility], [address] [place] [phone] Basophil pct 0.6 % AIME DOBBS Comment:Testing performed by : [facility], [address] [place] [phone] Blood specimen (specimen) 09/03/2019 9:54 AM CDT 09/03/2019 9:56 AM CDT us Hillary Gama MD LAB BLOOD ORDERABLES Final Result Performing Organization Address City/State/[facility] Co de Phone Number AIME DOBBS [facility] Department [place] [address] * (ABNORMAL) CBC with auto differential (09/03/2019 9:54 AM CDT) WBC 5.2 3.8 - 9.8 K/cumm AIME DOBBS Comment:Testing performed by : [facility], [address] [place] [phone] Hgb 13.4(L) 13.8 - 17.2 g/dL AIME DOBBS Comment:Testing performed by : [facility], [address] [place] [phone] Hct 40.9 40.7 - 50.3 % CERMELLO BJ Comment:Testing performed by : [facility], [address] [place] [phone] Plt 289 140 - 440 K/cumm CERMELLO BJ Comment:Testing performed by : [facility], [address] [place] [phone] MPV 9.8 6.8 - 10.4 fL CERMLELO BJ Comment:Testing performed by : [facility], [address] [place], [place] [phone] RBC 4.64 4.50 - 5.70 M/cumm AIME BJ Comment:Testing performed by : [place] [phone] MCV 88.3 80.0 - 97.6 fL AIME BJ Comment:Testing performed by : [address] [phone] MCH 28.8 26.7 - 33.[address] [facility] Comment:Testing performed by : [facility], [address] [place] [phone] MCHC 32.6(L) 32.7 - 35.5 g/dL CERMELLO [facility] Comment:Testing performed by : [address] [phone] RDW CV 14.6 11.8 - 14.6 % AIME [facility] Comment:Testing performed by : [address] [phone] NRBC abs 0.00 0.00 - 0.01 K/cumm AIME [facility] Comment:Testing performed by : [facility], [address] [place] [phone] Blood specimen (specimen) 09/03/2019 9:54 AM CDT 09/03/2019 9:56 AM CDT us Hillary Gama MD LAB BLOOD ORDERABLES Final Result [facility] [place] [address] * Reticulocyte Count (09/03/2019 9:54 AM CDT) Pathologist [facility] Retics, absolute 0.040 0.020 - 0.087 M/cumm AIME [facility] Comment:Testing performed by : [facility], [address] [place] [phone] Retics 0.85 0.50 - 1.80 % AIME [facility] Comment:Testing performed by : [facility], [address] [place] [phone] Blood specimen (specimen) 09/03/2019 9:54 AM CDT 09/03/2019 9:56 AM CDT us Hillary Gama MD LAB BLOOD ORDERABLES Final Result Performing Organization Address City/State/[facility] Co de Phone Number AIME [facility] Department [place] [address] * (ABNORMAL) Basic metabolic panel (09/03/2019 9:54 AM CDT) [facility] Sodium 143 135 - 145 mmol/L AIME [facility] Comment:Testing performed by : [facility], [address] [place] [phone] Potassium, pl 5.1(H) 3.3 - 4.9 mmol/L AIME [facility] Comment:Testing performed by : [facility], [address] [place] [phone] Chloride 107 97 - 110 mmol/L AIME [facility] Comment:Testing performed by : [facility], [address] [place] [phone] CO2 29 22 - 32 mmol/L AIME [facility] Comment:Testing performed by : [facility], [address] [place] [phone] Anion gap 7 2 - 15 mmol/L AIME DOBBS Comment:Testing performed by : [facility], [address] [place] [phone] BUN 16 8 - 25 mg/dL AIME [facility] Comment:Testing performed by : [facility], [address] [place] [phone] Creatinine 1.35(H) 0.80 - 1.30 mg/dL [facility] Comment:Testing performed by : [facility], [address] [place] [phone] Glucose 107 70 - 199 mg/dL [facility] Comment: Interpretive Data Fasting glucose >/= 126 [...] was last revised 2017. Testing performed by: [facility], [address] [place] [phone] Calcium 9.5 8.5 - 10.3 mg/dL [facility] Comment:Testing performed by : [facility], [address] [place] [phone] Blood specimen (specimen) 09/03/2019 9:54 AM CDT 09/03/2019 9:56 AM CDT Hillary Gama MD LAB BLOOD ORDERABLES Final Result [facility] Department [place] [address] documented in this encounter Visit Diagnoses Diagnosis 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) [facility] current use of 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 documented in this encounter Orders Appointment Requests Count Last Ordered Date Fi rst Ordered Date ONCBCN LAB APPOINTMENT 1 09/03/2019 documented in this encounter Care Teams Title Inspector Relationship Specialty Start Date End Date Timothy Banks MD PCP - General 07/08/16 documented as of this encounter
--- OUTSIDE RECORDS SUMMARY | 2024-04-11 14:00 | XMS_ITS | Encounter Summary ---
Author Organization [facility] Address [address] [place] [address] Care Team Providers Care Geophysical E Logger Name Role Phone Timothy Banks MD Primary Care Provider [phone] Reason for Visit * Reason Comments Follow-up 6 mo f/u on LVH, RBB B Encounter Details Date Type Department Care Team (Latest Contact Info) Description 01/26/2021 9:15 AM CDT Office Visit [facility] Cardiology [address] [place] [address] Jayro Kaminski MD [facility] [place] [phone] Bilateral lower extremity edema (Primary Dx); custodial current use of 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; QAMAR (obstructive [...] on file 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 HX OTHER MEDICAL CKD; Comments: [facility] 03/31/2016 - Social History Tobacco Use ??? [...] Moderate but no evidence of failure 4. 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 coordinator current use of 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 No bleeding [...] sooner as clinically indicated Jayro Kaminski MD, [facility] documented in this encounter Plan of Treatment Not on file documented as of this encounter Visit Diagnoses Diagnosis Bilateral lower extremity edema- Primary 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 coordinator current use of 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 QAMAR (obstructive sleep apnea) Obstructive sleep apnea (adult) (pediatric) Hypertensive left ventricular hypertrophy, without heart failure 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) documented in this encounter Care Teams Geophysical E Logger Relationship Specialty Start Date End Date Timothy Banks MD PCP - General 07/08/16 documented as of this encounter
--- OUTSIDE RECORDS SUMMARY | 2024-04-11 14:00 | XMS_ITS | Encounter Summary ---
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 HX OTHER MEDICAL CKD; Comments: [facility] 03/31/2016 - Social History Tobacco Use [...] as clinically indicated Jayro Kaminski MD, [facility] This was a telemedicine visit with Russ Kern which took place via Telephone. During the visit, I was located in my office of [facility] Cardiology [facility] and the patient was located at home. 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
--- OUTSIDE RECORDS SUMMARY | 2024-04-11 14:00 | XMS_ITS | Encounter Summary ---
Author Organization [facility] Address [address] [place] [address] Care Team Providers Care Shipping Room Supervisor Name Role Phone Timothy Banks MD Primary Care Provider [phone] Reason for Visit * Reason Comments Follow-up 6 mo f/u on RBBB, VT E, SVT, LVH Encounter Details Date Type Department Care Team (Latest Contact Info) Description 07/20/2020 9:30 AM CDT Office Visit [facility] Cardiology [address] [facility] [address] [place] [address] Jayro Kaminski MD [facility] [place] [phone] 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 which was normal except for moderate LVH. [...] gerd, s/p hiatal hernia [facility], ; Comments: [facility] 03/31/2016 - ??? HX OTHER MEDICAL CKD; Comments: [facility] 03/31/2016 - Social History Tobacco Use [...] Moderate but no evidence of failure 4. 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
--- OUTSIDE RECORDS SUMMARY | 2024-04-11 14:00 | XMS_ITS | Encounter Summary ---
Author Organization [facility] Address [address] [place] [address] Care Team Providers Care Quarter Supervisor Name Role Phone Timothy Banks MD Primary Care Provider [phone] Reason for Visit * Reason Comments Follow-up 6 mo f/u Edema Encounter Details Date Type Department Care Team (Latest Contact Info) Description 01/21/2022 11:15 AM CDT Office Visit [facility] Cardiology [address] [place] [address] Jayro Kaminski MD [address] [place] [phone] Hypertensive left ventricular hypertrophy, without heart failure (Primary Dx); 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); RBBB; QAMAR (obstructive sleep apnea); Cardiac arrhythmia, unspecified cardiac arrhythmia type; 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 Social History Tobacco Use Types Packs/Day Years Used Date Smoking Tobacco: Never Smokeless Tobacco: Never Alcohol Use Standard Drinks/Week Comments Yes 0 (1 standard drink = 0.6 oz pur e alcohol) Sex and Gender Information Value Date Recorded Sex Assigned at Not on file 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
--- OUTSIDE RECORDS SUMMARY | 2024-04-11 14:00 | XMS_ITS | Encounter Summary ---
Author Organization [facility] Address [address] [place] [address] Phone Care Team Providers Care Passenger Booking Clerk Name Role Phone Timothy Banks MD Primary Care Provider [phone] Encounter Details Date Type Department Care Team (Late st Contact Info) Description 03/15/2022 Orders Only [facility] Hematology 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
--- OUTSIDE RECORDS SUMMARY | 2024-04-11 14:00 | XMS_ITS | Encounter Summary ---
Author Organization [facility] Address [address] [place] [address] Care Team Providers Care Travel Sales Consultant Name Role Phone Timothy Banks MD Primary Care Provider [phone] Reason for Referral * Diagnostic Imaging (Routine) - Closed Specialty Diagnoses / Procedures Referred By Contac t Referred To Contact Diagnoses Hypertensive left ventricular hypertrophy, without heart failure Atypical chest pain Procedures NM MPI SPECT (Rest and/or Stress) Multiple Studies Veena Malone MD [address] [place] [address] [place] [address] Phone: tel: fax: Referral ID Status Reason Start Date Expiration Date Visits Re quested Visits Authorized [id number] Closed 07/29/2022 08/28/2023 1 1 Reason for Visit * Reason Comments RBBB SVT 6 mo f/u Encounter Details Date Type Department Care Team (Latest Contact Info) Description 07/29/2022 11:30 AM CDT Office Visit [facility] Cardiology [address] [facility] [address] [place] [address] Veena Malone MD [address] [facility] [address] [place] [address] [facility] current use of 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 (Primary Dx); [...] on file 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 HX OTHER MEDICAL CKD; Comments: [facility] 03/31/2016 - ??? Sleep apnea 2017 [...] Moderate but no evidence of failure 4. [facility] current use of 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 No bleeding [...] AM CDT Narrative 09/07/2022 12:47 PM CDT [facility] Cardiology [address], [place] [address] [address] [facility] [address], [place] [address] P:[phone] P:[phone] MPI Imaging Report Patient Name: NADEEM AMAYA W : 1945 Study Date: 09/07/2022 9:39:10 AM Gender: M Tech: [facility] Location: [place] Ref.Provider: VEENA MALONE Height(Cm): 185.4 BSA: Weight(Kg): [...] complete. 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 - consider inferior ischemia, frequent [...] Procedure Note Veena Malone MD - 09/07/2022 [facility] Cardiology [address] [facility] [address], [place] [address] [address] [facility] [address], [place] [address] P:[phone] P:[phone] MPI Imaging Report Patient Name: NADEEM AMAYA WPatient ID: [id number] : [id number] Date: 09/07/2022 9:39:10 AM Gender: MAccession #: [id number] Tech: [place] WAYMTLocation: [place] Ref.Provider: VEENA MALONEHeight(Cm): 185.4 BSA: Weight(Kg): 98.4 BMI: 28.63Order Provider: VEENA MALONE - Physician: Referring Physician: Dr. Banks. HCG Physician: Agusto Malone M.D.Interpreting Physician: Agusto Malone M.D. Stress Supervision: Agusto Maolne M.D. Procedures: Myocardial perfusion imaging with Tc99M [...] complete. 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 [...] documented in this encounter Visit Diagnoses Diagnosis orientor current use of 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- Primary QAMAR [...] 02/02/2023 added in this encounter Care Teams Travel Sales Consultant Relationship Specialty Start Date End Date Timothy Banks MD PCP - General 07/08/16 documented as of this encounter
--- OUTSIDE RECORDS SUMMARY | 2024-04-11 14:00 | XMS_ITS | Encounter Summary ---
Author Organization [facility] Address [address] [place] [address] Care Team Providers Care Aquatics Instructor Name Role Phone Timothy Banks MD Primary Care Provider [phone] Reason for Visit * Reason Comments Follow-up 2-3 mo f/u on VTE, L VH, SVT, RBBB, QAMAR Encounter Details Date Type Department Care Team (Latest Contact Info) Description 11/20/2018 11:15 AM CDT Office Visit [facility] [address] [place] [address] Jayro Kaminski MD [facility] [place] [id number] 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 HX OTHER MEDICAL CKD; Comments: [facility] 03/31/2016 - Social History Tobacco Use [...] Moderate but no evidence of failure 4. 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
--- OUTSIDE RECORDS SUMMARY | 2024-04-11 14:00 | XMS_ITS | Encounter Summary ---
Author Organization [facility] Address [address] [place] [address] Phone Care Team Providers Care Energy Consultant Name Role Phone Timothy Banks MD Primary Care Provider [phone] Reason for Visit * Oncology (Routine) - Closed Specialty Diagnoses / Procedures Referred By Contac t Referred To Contact Oncology Diagnoses 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) Procedures ONCBCN ARM DRAW APPT ONC LAB ONLY Hillary aGma MD [address] [place] [address] Phone: tel: fax: Hillary Gama MD [address] [address] Phone: tel: fax: Referral ID Status Reason Start Date Expiration Date V isits Requested Visits Authorized [id number] Closed Specialty Services Required 04/10/2018 04/09/2024 99 99 Encounter Details Date Type Department Care Team (Late st Contact Info) Description 08/30/2022 9:00 AM CDT Lab [facility] Oncology [address] [facility] 7[address] [place] [address] [place] [address] 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); 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 Social History Tobacco Use Types Packs/Day Years Used Date Smoking Tobacco: Never Smokeless Tobacco: Never Alcohol Use Standard Drinks/Week Comments Yes 0 (1 standard drink = 0.6 oz pur e alcohol) Sex and Gender Information Value Date Recorded Sex Assigned at Not on file 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 Gender Identity Male 01/12/2020 7:43 PM CDT Sexual Orientation Straight 01/12/2020 7: 43 PM CDT documented as of this encounter Plan of Treatment Not on file documented as of this encounter Visit Diagnoses Diagnosis 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) 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
--- OUTSIDE RECORDS SUMMARY | 2024-04-11 14:00 | XMS_ITS | Encounter Summary ---
Author Organization [facility] Address [address] [place] [address] Care Team Providers Care Commercial Sales Manager Name Role Phone Timothy Banks MD Primary Care Provider [phone] Reason for Visit * Cardiology (Routine) - Closed Specialty Diagnoses / Procedures Referred By Contac t Referred To Contact Diagnoses Cardiac arrhythmia, unspecified cardiac arrhythmia type RBBB LVH (left ventricular hypertrophy) Procedures Transthoracic Echo Complete W Doppler/CF Veena Malone MD [address] [address] Phone: tel: fax: [facility] Referral ID Status Reason Start Date Expiration Date Visits Re quested Visits Authorized [id number] Closed 01/13/2020 02/11/2021 1 1 Encounter Details Date Type Department Care Team (Latest Contact Info) Description 01/30/2020 10:15 AM CDT Ancillary Procedure [facility] Medical [facility] Cardiology [address] [place] [address] Cardiac arrhythmia, unspecified cardiac arrhythmia type; RBBB; LVH (left ventricular hypertrophy) Social History Tobacco Use Types Packs/Day Years Used Date Smoking Tobacco: Never Smokeless Tobacco: Never Alcohol Use Standard Drinks/Week Comments Yes 0 (1 standard drink = 0.6 oz pur e alcohol) Sex and Gender Information Value Date Recorded Sex Assigned at Not on file 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 [address] [address] [address] [facility] [address] [facility] [address], [place] [address] P:[phone] P:[phone] Echocardiographic Report Patient Name: NADEEM AMAYA : 4 Study Date: 01/30/2020 10:00:19 AM Gender: M Tech: Location: [place] Ref.Provider: CHRISTOPHER Height(Cm): 185 BSA: 2.39 Weight(Kg): [...] Findings: Interpretation Site: Exam was interpreted at [facility]. Left Ventricle: Normal left ventricular size. Definity [...] regurgitation. Electronically Signed By: Reggie Jackson MD, [facility] 2020-01-30 17:46:40 CDT Procedure Note Reggie Jackson MD - 01/30/2020 [facility] Cardiology [address] [facility] [address] [address] [address] [facility] [address], [place] [address] P:[phone] P:[phone] Echocardiographic Report Patient Name: NADEEM AMAYAPatient ID: [id number] : [id number] Date: 01/30/2020 10:00:19 AM Gender: MAccession #: [id number] Tech: GMLocation: [place] Ref.Provider: Fayight(Cm): 185 BSA: 2.39Weight(Kg): 116.57 Heart [...] 16.00 - 28.00 ] cc/m2 MV Decel [id number] [ 150 - 200 ] msec ACS MM 2.00 cm PV Peak Vel0.93 [ 0.40 - 0.80 ] m/s TR Peak Vel2.38 [ 0.40 - 0.80 ] m/s TR Peak PG 23mmHg RVSP31.00 mmHg E'0.09 E/E' 8 Findings: Interpretation Site: Exam was interpreted at [facility]. Left Ventricle: Normal left ventricular size. Definity [...] regurgitation. Electronically Signed By: Reggie Jackson MD, [facility] 2020-01-30 17:46:40 CDT Veena Malone MD CV [...] mL documented in this encounter Care Teams Commercial Sales Manager Relationship Specialty Start Date End Date Timothy Banks MD PCP - General 07/08/16 documented as of this encounter
--- OUTSIDE RECORDS SUMMARY | 2024-04-11 14:00 | XMS_ITS | Encounter Summary ---
Author Organization [facility] Address [address] [place] [address] Care Team Providers Care Fountain Helper Name Role Phone Timothy Banks MD Primary Care Provider [phone] Reason for Referral * Cardiology (Routine) - Closed Specialty Diagnoses / Procedures Referred By Contac t Referred To Contact Diagnoses Cardiac arrhythmia, unspecified cardiac arrhythmia type RBBB LVH (left ventricular hypertrophy) Procedures Transthoracic Echo Complete W Doppler/CF Veena Malone MD [address] [place] [address] [place] [address] Phone: tel: fax: [facility] Referral ID Status Reason Start Date Expiration Date Visits Re quested Visits Authorized [id number] Closed 01/13/2020 02/11/2021 1 1 Reason for Visit * Reason Comments Follow-up 6 mo f/u on RBBB, LV H, VTE Encounter Details Date Type Department Care Team (Latest Contact Info) Description 01/13/2020 8:30 AM CDT Office Visit [facility] Cardiology [address] [facility] [address] [place] [address] Veena Malone MD [address] [place] [address] [address] [place] [address] met[place] current use of 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 (Primary Dx); [...] on file 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 HX OTHER MEDICAL CKD; Comments: [facility] 03/31/2016 - Social History Tobacco Use ??? [...] Moderate but no evidence of failure 4. nursing home current use of 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 No bleeding [...] sooner as clinically indicated Veena Malone MD, [facility] documented in this encounter Miscellaneous Notes [...] AM CDT Narrative 01/30/2020 5:46 PM CDT [facility] Cardiology [address] [facility] [address] [id number] [address] [facility] [address], [place] [address] P:[phone] P:[phone] Echocardiographic Report Patient Name: NADEEM AMAYA : 1945 Study Date: 01/30/2020 10:00:19 AM Gender: M Tech: Location: [place] Ref.Provider: CHRISTOPHER Height(Cm): 185 BSA: 2.39 Weight(Kg): [...] Site: Exam was interpreted at [facility]. Left Ventricle: Normal left ventricular size. Definity [...] regurgitation. Electronically Signed By: Reggie Jackson MD, [facility] 2020-01-30 17:46:40 CDT Procedure Note Reggie Jackson MD - 01/30/2020 [facility] Cardiology [address] [facility] [address], [place] [address] [address] [facility] [address], [place] [address] P:[phone] P:[phone] Echocardiographic Report Patient Name: NADEEM AMAYAPatient ID: [id number] : [id number] Date: 01/30/2020 10:00:19 AM Gender: MAccession #: [id number] Tech: GMLocation: [place] Ref.Provider: Narayan(Cm): 185 BSA: [...] 16.00 - 28.00 ] cc/m2 MV Decel [id number] [ 150 - 200 ] msec ACS MM 2.00 cm PV Peak Vel0.93 [ 0.40 - 0.80 ] m/s TR Peak Vel2.38 [ 0.40 - 0.80 ] m/s TR Peak PG 23mmHg RVSP31.00 mmHg E'0.09 E/E' 8 Findings: Interpretation Site: Exam was interpreted at [facility]. Left Ventricle: Normal left ventricular size. Definity [...] regurgitation. Electronically Signed By: Reggie Jackson MD, [facility] 2020-01-30 17:46:40 CDT Veena Malone MD [...] documented in this encounter Visit Diagnoses Diagnosis nursing home current use of 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- Primary Cardiac arrhythmia, unspecified cardiac arrhythmia type QAMAR (obstructive sleep apnea) Obstructive sleep apnea (adult) (pediatric) RBBB LVH (left ventricular hypertrophy) Cardiomegaly Lipid screening Screening for lipoid disorders Cardiac arrhythmia, unspecified cardiac arrhythmia type RBBB LVH (left ventricular hypertrophy) Cardiomegaly documented in this encounter Care Teams Fountain Helper Relationship Specialty Start Date End Date Timothy Banks MD PCP - General 07/08/16 documented as of this encounter
--- OUTSIDE RECORDS SUMMARY | 2024-04-11 14:00 | XMS_ITS | Encounter Summary ---
Author Organization [facility] Address [address] [facility] [address] [place] [address] Phone Care Team Providers Care Research Dietitian Name Role Phone Timothy Banks MD Primary Care Provider + [phone] Reason for Visit * Oncology (Routine) - Closed Specialty Diagnoses / Procedures Referred By Contshakila t Referred To Contact Oncology Diagnoses 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) Hillary Gama MD [address] [place] [address] Phone: tel: fax: Hillary Gama MD [address] [address] Phone: tel: fax: Referral ID Status Reason Start Date Expiration Date V isits Requested Visits Authorized [id number] Closed Specialty Services Required 04/10/2017 04/09/2024 99 99 Encounter Details Date Type Department Care Team (Latest Contact Info) Description 09/03/2019 10:45 AM CDT Office Visit [facility] Hematology [address] [facility] 7th [place] [address] [place] [id number] Hillary Gama MD [address] [place] [address] 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) (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); 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 Social History Tobacco Use Types Packs/Day Years Used Date Smoking Tobacco: Never Smokeless Tobacco: Never Alcohol Use Standard Drinks/Week Comments Yes 0 (1 standard drink = 0.6 oz pur e alcohol) Sex and Gender Information Value Date Recorded Sex Assigned at Not on file 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 ??Warfarin started for 6 months. [...] following hiatal hernia repair. ??This required a [place] filter placement, as well as groin venous [...] file Gets together: Not on file Attends yazidism service: Not on file Active member of [...] List Diagnosis ??? Ventricular premature beats ??? 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 RBBB [...] 143 135 - 145 mmol/L [facility] Comment:Testing performed by : [facility], [facility] [phone] Potassium, pl 4.8 3.3 - 4.9 mmol/L [facility] Comment:Testing performed by : [facility], [address] [facility] [phone] Chloride 107 97 - 110 mmol/L [facility] Comment:Testing performed by : [facility], [address] [place] [phone] CO2 30 22 - 32 mmol/L [facility] Comment:Testing performed by : [facility], [address] [place] [phone] Anion gap 6 2 - 15 mmol/L [facility] Comment:Testing performed by : [facility], [address] [place] [phone] BUN 12 8 - 25 mg/dL [facility] Comment:Testing performed by : [facility], [address] [place] [phone] Creatinine 1.21 0.80 - 1.30 mg/dL [facility] Comment:Testing performed by : [facility], [address] [place] [phone] Glucose 94 70 - 199 mg/dL [facility] Comment: Interpretive Data Fasting glucose [...] was last revised 2017. Testing performed by: [facility], [address] [place] [phone] Calcium 9.7 8.5 - 10.3 mg/dL [facility] Comment:Testing performed by : [facility], [address] [place] [phone] Blood specimen (specimen) 09/01/2020 9:26 AM CDT 09/01/2020 9:27 AM CDT Brittany Lerner NP LAB BLOOD ORDERABLES Final Result [facility] Department [place] [address] * Reticulocyte Count (09/01/2020 9:26 AM CDT) Pathologist [facility], absolute 0.046 0.020 - 0.087 M/cumm [facility] Comment:Testing performed by : [facility], [address] [place] [phone] Retics 1.06 0.50 - 1.80 % [facility] Comment:Testing performed by : [facility], [address] [place] [phone] Blood specimen (specimen) 09/01/2020 9:26 AM CDT 09/01/2020 9:27 AM CDT Brittany Lerner TEACHER'S AIDE LAB BLOOD ORDERABLES Final Result [facility] [place] [address] * (ABNORMAL) CBC with auto differential (09/01/2020 9:26 AM CDT) [facility] WBC 5.1 3.8 - 9.8 K/cumm [facility] Comment:Testing performed by : [facility], [address] [place] [phone] Hgb 12.3(L) 13.8 - 17.2 g/dL [facility] Comment:Testing performed by : [address] [phone] Hct 37.8(L) 40.7 - 50.3 % [facility] Comment:Testing performed by : [facility], [address] [place] [phone] Plt 290 140 - 440 K/cumm [facility] Comment:Testing performed by : [facility], [address] [place] [phone] MPV 10.1 6.8 - 10.[address] [facility] Comment:Testing performed by : [address] [phone] RBC 4.36(L) 4.50 - 5.70 M/cumm [facility] Comment:Testing performed by : [facility], [address] [place] [phone] MCV 86.8 80.0 - 97.6 fL [facility] Comment:Testing performed by : [facility], [address] [place] [phone] MCH 28.2 26.7 - 33.7 pg [facility] Comment:Testing performed by : [facility], [address] [place] [phone] MCHC 32.5(L) 32.7 - 35.5 g/dL [facility] Comment:Testing performed by : [facility], [address] [place] [phone] RDW CV 16.3(H) 11.8 - 14.6 % [facility] Comment:Testing performed by : [facility], [address] [place] [phone] NRBC abs 0.00 0.00 - 0.01 K/cumm [facility] Comment:Testing performed by : [facility], [address] [place] [phone] Blood specimen (specimen) 09/01/2020 9:26 AM CDT 09/01/2020 9:27 AM CDT Brittany Lerner TEACHER'S AIDE LAB BLOOD ORDERABLES Final Result [facility] Department [place] [address] * (ABNORMAL) Basic metabolic panel (09/03/2019 9:54 AM CDT) Sodium 143 135 - 145 mmol/L [facility] Comment:Testing performed by : [facility], [address] [place] [phone] Potassium, pl 5.1(H) 3.3 - 4.9 mmol/L [facility] Comment:Testing performed by : [address] [phone] Chloride 107 97 - 110 mmol/L [facility] Comment:Testing performed by : [facility], [address] [place] [phone] CO2 29 22 - 32 mmol/L [facility] Comment:Testing performed by : [facility], [address] [place] [phone] Anion gap 7 2 - 15 mmol/L [facility] Comment:Testing performed by : [facility], [address] [place] [phone] BUN 16 8 - 25 mg/dL [facility] Comment:Testing performed by : [facility], [address] [place] [phone] Creatinine 1.35(H) 0.80 - 1.30 mg/dL [facility] Comment:Testing performed by : [facility], [address] [place] [phone] Glucose 107 70 - 199 mg/dL [facility] Comment: Interpretive Data Fasting glucose [...] was last revised 2017. Testing performed by: [facility], [address] [place] [phone] Calcium 9.5 8.5 - 10.3 mg/dL [facility] Comment:Testing performed by : [facility], [address] [place] [phone] Blood specimen (specimen) 09/03/2019 9:54 AM CDT 09/03/2019 9:56 AM CDT us Hillary Gama MD LAB BLOOD ORDERABLES Final Result [facility] Department [place] [address] * Reticulocyte Count (09/03/2019 9:54 AM CDT) Pathologist [facility], absolute 0.040 0.020 - 0.087 M/cumm [facility] Comment:Testing performed by : [facility], [address] [place] [phone] Retics 0.85 0.50 - 1.80 % [facility] Comment:Testing performed by : [facility], [address] [place] [phone] Blood specimen (specimen) 09/03/2019 9:54 AM CDT 09/03/2019 9:56 AM CDT us Hillary Gama MD LAB BLOOD ORDERABLES Final Result Performing Organization Address City/State/[facility] Co de Phone Number [facility] Department [place] [address] * (ABNORMAL) CBC with auto differential (09/03/2019 9:54 AM CDT) [facility] WBC 5.2 3.8 - 9.8 K/cumm [facility] Comment:Testing performed by : [facility], [address] [place] [phone] Hgb 13.4(L) 13.8 - 17.2 g/dL [facility] Comment:Testing performed by : [address] [phone] Hct 40.9 40.7 - 50.3 % [facility] Comment:Testing performed by : [facility], [address] [place] [phone] Plt 289 140 - 440 K/cumm [facility] Comment:Testing performed by : [facility], [address] [place] [phone] MPV 9.8 6.8 - 10.4 fL [facility] Comment:Testing performed by : [address] [phone] RBC 4.64 4.50 - 5.70 M/cumm [facility] Comment:Testing performed by : [facility], [address] [place] [phone] MCV 88.3 80.0 - 97.[address] [facility] Comment:Testing performed by : [facility], [address] [place] [phone] MCH 28.8 26.7 - 33.[address] [facility] Comment:Testing performed by : [facility], [address] [place] [phone] MCHC 32.6(L) 32.7 - 35.5 g/dL [facility] Comment:Testing performed by : [facility], [address] [place] [phone] RDW CV 14.6 11.8 - 14.6 % [facility] Comment:Testing performed by : [facility], [address] [place] [phone] NRBC abs 0.00 0.00 - 0.01 K/cumm [facility] Comment:Testing performed by : [facility], [address] [place] [phone] Blood specimen (specimen) 09/03/2019 9:54 AM CDT 09/03/2019 9:56 AM CDT Hillary Gama MD LAB BLOOD ORDERABLES Final Result [facility] Department [place] [address] documented in this encounter Visit Diagnoses Diagnosis 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)- Primary MCC current use of 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 documented in this encounter Orders Appointment Requests Count Last Ordered Date Fi rst Ordered Date ONCBCN CLINIC APPOINTMENT REQUEST 2 021 09/03/2019 ONCBCN LAB APPOINTMENT 1 09/01/2020 documented in this encounter Care Teams Research Dietitian Relationship Specialty Start Date End Date Timothy Banks MD PCP - General 07/08/16 documented as of this encounter
--- OUTSIDE RECORDS SUMMARY | 2024-04-11 14:00 | XMS_ITS | Encounter Summary ---
Author Organization [facility] Address [address] [facility] [address] [place] [address] Care Team Providers Care Hand Collator Name Role Phone Timothy Banks MD Primary Care Provider [phone] Reason for Visit * Reason Comments Follow-up 6 mo f/u on RBBB, LV H, edema Encounter Details Date Type Department Care Team (Latest Contact Info) Description 08/03/2021 10:15 AM CDT Office Visit [facility] Cardiology [address] 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 HX OTHER MEDICAL CKD; Comments: [facility] 03/31/2016 - ??? Sleep apnea 2018 Social [...] Moderate but no evidence of failure 4. [facility] current use of 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 No bleeding [...] sooner as clinically indicated Jayro Kaminski MD, [facility] documented in this encounter Plan of Treatment Not on file documented as of this encounter Visit Diagnoses Diagnosis 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)- Primary LVH (left ventricular hypertrophy) Cardiomegaly QAMAR (obstructive sleep apnea) Obstructive sleep apnea (adult) (pediatric) MCC current use of 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 Hypertensive left ventricular hypertrophy, without heart failure Cardiac arrhythmia, unspecified cardiac arrhythmia type documented in this encounter Care Teams Hand Collator Relationship Specialty Start Date End Date Timothy Banks MD PCP - General 07/08/16 documented as of this encounter
--- OUTSIDE RECORDS SUMMARY | 2024-04-11 14:00 | XMS_ITS | Encounter Summary ---
Author Organization [facility] Address [address] [facility] [address] [place] [address] Phone Care Team Providers Care Water Pumper Name Role Phone Timothy Banks MD Primary Care Provider + [phone] Reason for Visit * Oncology (Routine) - Closed Specialty Diagnoses / Procedures Referred By Contshakila t Referred To Contact Oncology Diagnoses 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) Hillary Gama MD [address] [place] [address] Phone: tel: fax: Hillary Gama MD [address] [address] Phone: tel: fax: Referral ID Status Reason Start Date Expiration Date V isits Requested Visits Authorized [id number] Closed Specialty Services Required 04/10/2017 04/09/2024 99 99 Encounter Details Date Type Department Care Team (Latest Contact Info) Description 08/31/2021 10:45 AM CDT Office Visit 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 Current Treatment: 1.?2005, DVT/PE following hiatal repair status post [place] filter placement. ??Warfarin started for 6 months. [...] following hiatal hernia repair. ??This required a [place] filter placement, as well as groin venous [...] strengthening. End september for anniversary going to [place] ALLERGIES: No Known Allergies CURRENT MEDICATION: Current [...] List Diagnosis ??? Ventricular premature beats ??? prison current use of 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 ??? RBBB [...] mmol/L CERNER BJ Comment:Testing performed by : [facility], [address] [place] [phone] Potassium, pl 4.7 3.3 - 4.9 mmol/L CERNER BJ Comment:Testing performed by : [facility], [address] [place] [phone] Chloride 103 97 - 110 mmol/L CERNER BJ Comment:Testing performed by : [facility], [address] [place] [phone] CO2 30 22 - 32 mmol/L CERNER BJ Comment:Testing performed by : [facility], [address] [place] [phone] Anion gap 7 2 - 15 mmol/L CERNER BJ Comment:Testing performed by : [facility], [address] [place] [phone] BUN 21 8 - 25 mg/dL CERNER BJ Comment:Testing performed by : [facility], [address] [place] [phone] Creatinine 1.36(H) 0.80 - 1.30 mg/dL CERNER BJ Comment:Testing performed by : [facility], [address] [place] [phone] Glucose 96 70 - 199 mg/dL CERNER BJ Comment: Interpretive Data Fasting glucose >/= 126 [...] was last revised 2022. Testing performed by: [facility], [address] [place] [phone] Calcium 10.0 8.5 - 10.3 mg/dL [facility] Comment:Testing performed by : [facility], [address] [place] [phone] Blood 08/30/2022 8:45 AM CDT 08/30/2022 8:49 AM CDT Brittany Lerner STAINED GLASS INSTALLER LAB BLOOD ORDERABLES Final Result Performing Organization Address [facility] de Phone Number [facility] Department of Laboratories [place], [place] [id number] * Reticulocyte Count (08/30/2022 8:45 AM CDT) Pathologist [facility] Retics, absolute 0.038 0.020 - 0.087 M/cumm [facility] Comment:Testing performed by : [facility], [address] [place] [phone] Retics 0.91 0.50 - 1.80 % [facility] Comment:Testing performed by : [facility], [address] [place] [phone] Blood 08/30/2022 8:45 AM CDT 08/30/2022 8:49 AM CDT Brittany Lerner STAINED GLASS INSTALLER LAB BLOOD ORDERABLES Final Result Performing Organization Address [facility] de Phone Number [facility] of Laboratories [place], [place] [id number] * (ABNORMAL) CBC with auto differential (08/30/2022 8:45 AM CDT) WBC 3.0(L) 3.8 - 9.8 K/cumm [facility] Comment:Testing performed by : [facility], [address] [place] [phone] Hgb 11.7(L) 13.8 - 17.2 g/dL [facility] Comment:Testing performed by : [facility], [address] [place] [phone] Hct 36.7(L) 40.7 - 50.3 % CERMELLO BJ Comment:Testing performed by : [facility], [address] [place] [phone] Plt 310 140 - 440 K/cumm CERMELLO BJ Comment:Testing performed by : [facility], [address] [place], [place] [phone] MPV 9.8 6.8 - 10.4 fL CERMELLO BJ Comment:Testing performed by : [facility], [address] [place], [place] [phone] RBC 4.20(L) 4.50 - 5.70 M/cumm CERMELLO BJ Comment:Testing performed by : [place] [phone] MCV 87.4 80.0 - 97.6 fL AIME BJ Comment:Testing performed by : [address] [phone] MCH 27.9 26.7 - 33.7 pg AIME BJ Comment:Testing performed by : [facility], [address] [place] [phone] MCHC 31.9(L) 32.7 - 35.5 g/dL CERMELLO BJ Comment:Testing performed by : [facility], [address] [place], [place] [phone] RDW CV 18.2(H) 11.8 - 14.6 % AIME BJ Comment:Testing performed by : [address] [phone] NRBC abs 0.00 0.00 - 0.01 K/cumm AIME BJ Comment:Testing performed by : [facility], [address] [place] [phone] Blood 08/30/2022 8:45 AM CDT 08/30/2022 8:49 AM CDT Brittany Lerner STAINED GLASS INSTALLER LAB BLOOD ORDERABLES Final Result [facility] Department [place] [address] * Reticulocyte Count (08/31/2021 9:42 AM CDT) Pathologist [facility] Retics, absolute 0.051 0.020 - 0.087 M/cumm [facility]IME [facility] Comment:Testing performed by : [facility], [address] [place] [phone] Retics 1.21 0.50 - 1.80 % [facility] Comment:Testing performed by : [facility], [address] [place] [phone] Blood 08/31/2021 9:42 AM CDT 08/31/2021 9:46 AM CDT us Hillary Gama MD LAB BLOOD ORDERABLES Final Result [facility] Department [place] [address] * (ABNORMAL) Basic metabolic panel (08/31/2021 9:42 AM CDT) [facility] Sodium 141 135 - 145 mmol/L [facility] Comment:Testing performed by : [facility], [address] [place] [phone] Potassium, pl 4.8 3.3 - 4.9 mmol/L [facility] Comment:Testing performed by : [facility], [address] [place] [phone] Chloride 104 97 - 110 mmol/L [facility] Comment:Testing performed by : [facility], [address] [place] [phone] CO2 28 22 - 32 mmol/L [facility] Comment:Testing performed by : [facility], [address] [place] [phone] Anion gap 9 2 - 15 mmol/L [facility] Comment:Testing performed by : [facility], [address] [place] [phone] BUN 14 8 - 25 mg/dL [facility] Comment:Testing performed by : [facility], [address] [place] [phone] Creatinine 1.43(H) 0.80 - 1.30 mg/dL [facility]IME [facility] Comment:Testing performed by : [facility], [address] [place] [phone] Glucose 86 70 - 199 mg/dL [facility] Comment: Interpretive Data Fasting glucose >/= 126 [...] last revised 2017. Testing performed by: [facility], [address] [place] [phone] Calcium 9.5 8.5 - 10.3 mg/dL [facility] Comment:Testing performed by : [facility], [address] [place] [phone] Blood 08/31/2021 9:42 AM CDT 08/31/2021 9:46 AM CDT us Hillary Gama MD LAB BLOOD ORDERABLES Final Result [facility] Department [place] [address] * (ABNORMAL) CBC with auto differential (08/31/2021 9:42 AM CDT) WBC 5.7 3.8 - 9.8 K/cumm [facility] Comment:Testing performed by : [facility], [address] [place] [phone] Hgb 11.2(L) 13.8 - 17.2 g/dL [facility] Comment:Testing performed by : [address] [phone] Hct 35.2(L) 40.7 - 50.3 % [facility] Comment:Testing performed by : [facility], [address] [place] [phone] Plt 299 140 - 440 K/cumm [facility] Comment:Testing performed by : [facility], [address] [place] [phone] MPV 9.9 6.8 - 10.4 fL [facility] Comment:Testing performed by : [place] [phone] RBC 4.21(L) 4.50 - 5.70 M/cumm [facility] Comment:Testing performed by : [facility], [address] [place] [phone] MCV 83.8 80.0 - 97.6 fL [facility] Comment:Testing performed by : [facility], [address] [place] [phone] MCH 26.5(L) 26.7 - 33.7 pg [facility] Comment:Testing performed by : [facility], [address] [place] [phone] MCHC 31.7(L) 32.7 - 35.5 g/dL CERMELLO [facility] Comment:Testing performed by : [address] [phone] RDW CV 16.8(H) 11.8 - 14.6 % [facility] Comment:Testing performed by : [address] [phone] NRBC abs 0.00 0.00 - 0.01 K/cumm [facility] Comment:Testing performed by : [facility], [address] [place] [phone] Blood 08/31/2021 9:42 AM CDT 08/31/2021 9:46 AM CDT Hillary Gama MD LAB BLOOD ORDERABLES Final Result [facility] Department [place] [address] documented in this encounter Visit Diagnoses Diagnosis 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)- Primary 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
--- OUTSIDE RECORDS SUMMARY | 2024-04-11 14:00 | XMS_ITS | Encounter Summary ---
Author Organization [facility] Address [address] [place] [address] Phone Care Team Providers Care Incubator Machine Operator Name Role Phone Timothy Banks MD Primary Care Provider + [phone] Reason for Visit * Oncology (Routine) - Closed Specialty Diagnoses / Procedures Referred By Contac t Referred To Contact Oncology Diagnoses 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) Procedures ONCBCN ARM DRAW APPT ONC LAB ONLY Hillary Gama MD [address] [place] [address] Phone: tel: fax: Hillary Gama MD [address] [address] Phone: tel: fax: Referral ID Status Reason Start Date Expiration Date V isits Requested Visits Authorized [id number] Closed Specialty Services Required 04/10/2018 04/09/2024 99 99 Encounter Details Date Type Department Care Team (Late st Contact Info) Description 08/31/2021 10:00 AM CDT Lab [facility] Oncology [address] [facility] 7th [place] [address] [place] [address] 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); skilled nursing current use of 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 Social History Tobacco Use Types Packs/Day Years Used Date Smoking Tobacco: Never Smokeless Tobacco: Never Alcohol Use Standard Drinks/Week Comments Yes 0 (1 standard drink = 0.6 oz pur e alcohol) Sex and Gender Information Value Date Recorded Sex Assigned at Not on file 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 Gender Identity Male 01/12/2020 7:43 PM CDT Sexual Orientation Straight 01/12/2020 7: 43 PM CDT documented as of this encounter Plan of Treatment Not on file documented as of this encounter Visit Diagnoses Diagnosis 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) 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
--- OUTSIDE RECORDS SUMMARY | 2024-04-11 14:00 | XMS_ITS | Encounter Summary ---
Author Organization [facility] Address [address] [facility] [address] [place] [address] Phone Care Team Providers Care Terminal System Operator Name Role Phone Timothy Banks MD Primary Care Provider + [phone] Reason for Visit * Oncology (Routine) - Closed Specialty Diagnoses / Procedures Referred By Contshakila t Referred To Contact Oncology Diagnoses 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) Hillary Gama MD [address] [place] [address] Phone: tel: fax: Hillary Gama MD [facility] [address] [address] Phone: tel: fax: Referral ID Status Reason Start Date Expiration Date V isits Requested Visits Authorized [id number] Closed Specialty Services Required 04/10/2017 04/09/2024 99 99 Encounter Details Date Type Department Care Team (Latest Contact Info) Description 09/01/2020 10:15 AM CDT Office Visit [facility] Hematology [address] [facility] 7th [place] [address] [place] [address] Hillary Gama MD [address] [place] [address] 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); 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 ??Warfarin started for 6 months. [...] following hiatal hernia repair. ??This required a [place] filter placement, as well as groin venous [...] Gatherings with Friends and Family: ??? Attends Congregational Services: ??? 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
--- OUTSIDE RECORDS SUMMARY | 2024-04-11 14:00 | XMS_ITS | Encounter Summary ---
Author Organization [facility] Address [address] [place] [address] Phone Care Team Providers Care Cloud Infrastructure Architect Name Role Phone Timothy Banks MD Primary Care Provider + [phone] Reason for Visit * Oncology (Routine) - Closed Specialty Diagnoses / Procedures Referred By Contshakila t Referred To Contact Oncology Diagnoses 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) Procedures ONCBCN ARM DRAW APPT ONC LAB ONLY Hillary Gama MD [address] [place] [address] Phone: tel: fax: Hillary Gama MD [address] [address] Phone: tel: fax: Referral ID Status Reason Start Date Expiration Date V isits Requested Visits Authorized [id number] Closed Specialty Services Required 04/10/2018 04/09/2024 99 [phone] Encounter Details Date Type Department Care Team (Late st Contact Info) Description 09/01/2020 9:30 AM CDT Lab [facility] [address] 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 Gender Identity Male 01/12/2020 7:43 PM CDT Sexual Orientation Straight 01/12/2020 7: 43 PM CDT documented as of this encounter Plan of Treatment Not on file documented as of this encounter Procedures Procedure Name Priority Date/Time Associated Diagnosis Comments DIFFERENTIAL AUTO Routine 09/01/2020 9:2 6 AM CDT 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) detention current use of 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 CBC WITH AUTO DIFFERENTIAL Routine 09/01/2020 9:26 AM CDT 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) detention current use of 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 RETICULOCYTES Routine 09/01/2020 9:26 AM CDT 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) immersion metal cleaner current use of 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 BASIC METABOLIC PANEL Routine 09/01/2020 9:26 AM CDT 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) detention current use of 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 documented in this encounter Results * (ABNORMAL) Differential, auto (09/01/2020 9:26 AM CDT) Neutrophil abs 2.7 1.8 - 6.6 K/cumm [facility] Comment:Testing performed by : [facility], [address] [place] [phone] Lymphocyte abs 1.1(L) 1.2 - 3.3 K/cumm [facility] Comment:Testing performed by : [facility], [address] [place] [phone] Monocyte abs 1.1 0.2 - 1.2 K/cumm [facility] Comment:Testing performed by : [facility], [address] [place] [phone] Eosinophil abs 0.2 0.0 - 0.5 K/cumm [facility] Comment:Testing performed by : [facility], [address] [place] [phone] Basophil abs 0.1 0.0 - 0.2 K/cumm [facility] Comment:Testing performed by : [facility], [address] [place] [phone] Neutrophil pct 52.7 % [facility] Comment: Interpretive Data Percent cell count reference ranges are not reported, since discordance with absolute values may lead to misinterpretation of CBC data. Current Interpretive Data was last revised on 2017. Testing performed by: [facility], [address] [place] [phone] Lymphocyte pct 22.1 % [facility] Comment: Interpretive Data Percent cell count reference ranges are not reported, since discordance with absolute values may lead to misinterpretation of CBC data. Current Interpretive Data was last revised on 2017. Testing performed by: [facility], [address] [place] [phone] Monocyte pct 20.9 % [facility] Comment:Testing performed by : [facility], [address] [place] [phone] Eosinophil pct 3.2 % [facility] Comment:Testing performed by : [facility], [address] [place] [phone] Basophil pct 1.1 % [facility] Comment:Testing performed by : [facility], [address] [place] [phone] Blood specimen (specimen) 09/01/2020 9:26 AM CDT 09/01/2020 9:27 AM CDT Brittany Lerner HR INTERNSHIP LAB BLOOD ORDERABLES Final Result [facility] Department [place] [address] * (ABNORMAL) CBC with auto differential (09/01/2020 9:26 AM CDT) WBC 5.1 3.8 - 9.8 K/cumm [facility] Comment:Testing performed by : [address] [phone] Hgb 12.3(L) 13.8 - 17.2 g/dL [facility] Comment:Testing performed by : [facility], [address] [place], [place] [phone] Hct 37.8(L) 40.7 - 50.3 % [facility] Comment:Testing performed by : [facility], [address] [place] [address] Plt 290 140 - 440 K/cumm [facility] Comment:Testing performed by : [facility], [address] [place] [address] MPV 10.1 6.8 - 10.4 fL [facility] Comment:Testing performed by : [place] [address] RBC 4.36(L) 4.50 - 5.70 M/cumm [facility] Comment:Testing performed by : [place] [address] MCV 86.8 80.0 - 97.6 fL [facility] Comment:Testing performed by : [facility], [address] [place] [address] MCH 28.2 26.7 - 33.7 pg [facility] Comment:Testing performed by : [place] [address] MCHC 32.5(L) 32.7 - 35.5 g/dL [facility] Comment:Testing performed by : [place] [address] RDW CV 16.3(H) 11.8 - 14.6 % [facility] Comment:Testing performed by : [place] [phone] NRBC abs 0.00 0.00 - 0.01 K/cumm [facility] Comment:Testing performed by : [place] [phone] Blood specimen (specimen) 09/01/2020 9:26 AM CDT 09/01/2020 9:27 AM CDT Brittany Lerner HR INTERNSHIP LAB BLOOD ORDERABLES Final Result Performing Organization Address [facility] de Phone Number [facility] [place] [address] * Reticulocyte Count (09/01/2020 9:26 AM CDT) [facility] Retics, absolute 0.046 0.020 - 0.087 M/cumm [facility] Comment:Testing performed by : [facility], [address] [place] [phone] Retics 1.06 0.50 - 1.80 % [facility] Comment:Testing performed by : [facility], [address] [place] [phone] Blood specimen (specimen) 09/01/2020 9:26 AM CDT 09/01/2020 9:27 AM CDT Brittany Lerner HR INTERNSHIP LAB BLOOD ORDERABLES Final Result Performing Organization Address [facility] de Phone Number [facility] [place] [address] * Basic metabolic panel (09/01/2020 9:26 AM CDT) [facility] Sodium 143 135 - 145 mmol/L [facility] Comment:Testing performed by : [facility], [address] [place] [phone] Potassium, pl 4.8 3.3 - 4.9 mmol/L [facility] Comment:Testing performed by : [facility], [address] [place] [phone] Chloride 107 97 - 110 mmol/L [facility] Comment:Testing performed by : [facility], [address] [place] [phone] CO2 30 22 - 32 mmol/L [facility] Comment:Testing performed by : [facility], [address] [place] [phone] Anion gap 6 2 - 15 mmol/L [facility] Comment:Testing performed by : [facility], [address] [place] [phone] BUN 12 8 - 25 mg/dL [facility] Comment:Testing performed by : [facility], [address] [place] [phone] Creatinine 1.21 0.80 - 1.30 mg/dL [facility] Comment:Testing performed by : [facility], [address] [place] [phone] Glucose 94 70 - 199 mg/dL [facility] Comment: Interpretive Data Fasting glucose >/= [...] last revised 2017. Testing performed by: [facility], [address] [place] [phone] Calcium 9.7 8.5 - 10.3 mg/dL [facility] Comment:Testing performed by : [facility], [address] [place] [phone] Blood specimen (specimen) 09/01/2020 9:26 AM CDT 09/01/2020 9:27 AM CDT Brittany Lerner HR INTERNSHIP LAB BLOOD ORDERABLES Final Result [facility] Department [place] [address] documented in this encounter Visit Diagnoses Diagnosis 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) immersion metal cleaner current use of 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 documented in this encounter Orders Outpatient Referral Count Last Ordered Date Fir st Ordered Date AMB REFERRAL TO ONCOLOGY 1 09/01/2020 Appointment Requests Count Last Ordered Date Fi rst Ordered Date ONCBCN LAB APPOINTMENT 1 09/01/2020 documented in this encounter Care Teams Cloud Infrastructure Architect Relationship Specialty Start Date End Date Timothy Banks MD PCP - General 07/08/16 documented as of this encounter
--- OUTSIDE RECORDS SUMMARY | 2024-04-11 14:00 | XMS_ITS | Encounter Summary ---
Author Organization [facility] Address [address] [place] [address] Care Team Providers Care Media Promoter Name Role Phone Timothy Banks MD Primary Care Provider [phone] Encounter Details Date Type Department Care Team (Latest Contact Info) Description 08/30/2022 11:14 AM CDT - 08/30/2022 11:59 PM CDT Hospital Encounter [facility] ([facility]) [address] [place] [phone] 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); [facility] current use of 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 Discharge Disposition: Discharge to home or self care Social History Tobacco Use Types Packs/Day Years Used Date Smoking Tobacco: Never Smokeless Tobacco: Never Alcohol Use Standard Drinks/Week Comments Yes 0 (1 standard drink = 0.6 oz pur e alcohol) Sex and Gender Information Value Date Recorded Sex Assigned at Not on file Legal 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 Male 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 Gender Identity Male 01/12/2020 7:43 PM CDT [...] 08/30/2022 8:45 AM CDT 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) MCC current use of 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 DIFFERENTIAL AUTO Routine 08/30/2022 8:4 5 AM CDT 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) 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 Testing performed by: [facility], [address] [place] [phone] Blood 08/30/2022 8:45 AM CDT 08/30/2022 8:49 AM CDT us Brittany Lerner TANKROOM TENDER LAB BLOOD ORDERABLES Final Result [facility] Department [place] [address] * (ABNORMAL) Differential, auto (08/30/2022 8:45 AM CDT) Neutrophil abs 1.2(L) 1.8 - 6.6 K/cumm [facility] Comment:Testing performed by : [facility], [address] [place] [phone] Lymphocyte abs 1.1(L) 1.2 - 3.3 K/cumm [facility] Comment:Testing performed by : [facility], [address] [place] [phone] Monocyte abs 0.6 0.2 - 1.2 K/cumm [facility] Comment:Testing performed by : [facility], [address] [place] [phone] Eosinophil abs 0.1 0.0 - 0.5 K/cumm [facility] Comment:Testing performed by : [facility], [address] [place] [phone] Basophil abs 0.0 0.0 - 0.2 K/cumm [facility] Comment:Testing performed by : [facility], [address] [place] [phone] Neutrophil pct 38.2 % [facility] Comment: Interpretive Data Percent cell count reference ranges are not reported, since discordance with absolute values may lead to misinterpretation of CBC data. Current Interpretive Data was last revised on 2017. Testing performed by: [facility], [address] [place] [phone] Lymphocyte pct 36.9 % [facility] Comment: Interpretive Data Percent cell count reference ranges are not reported, since discordance with absolute values may lead to misinterpretation of CBC data. Current Interpretive Data was last revised on 2017. Testing performed by: [facility], [address] [place] [phone] Monocyte pct 20.0 % [facility] Comment:Testing performed by : [facility], [address] [place] [phone] Eosinophil pct 3.5 % [facility] Comment:Testing performed by : [facility], [address] [place] [phone] Basophil pct 1.4 % [facility] Comment:Testing performed by : [facility], [address] [place] [phone] Blood 08/30/2022 8:45 AM CDT 08/30/2022 8:49 AM CDT us Brittany Lerner TANKROOM TENDER LAB BLOOD ORDERABLES Final Result [facility] Department [place] [address] * (ABNORMAL) CBC with auto differential (08/30/2022 8:45 AM CDT) WBC 3.0(L) 3.8 - 9.8 K/cumm [facility] Comment:Testing performed by : [facility], [address] [place] [phone] Hgb 11.7(L) 13.8 - 17.2 g/dL [facility] Comment:Testing performed by : [address] [phone] Hct 36.7(L) 40.7 - 50.3 % [facility] Comment:Testing performed by : [facility], [address] [place] [phone] Plt 310 140 - 440 K/cumm [facility] Comment:Testing performed by : [address] [phone] MPV 9.8 6.8 - 10.4 fL [facility] Comment:Testing performed by : [address] [phone] RBC 4.20(L) 4.50 - 5.70 M/cumm [facility] Comment:Testing performed by : [facility], [address] [place] [phone] MCV 87.4 80.0 - 97.6 fL [facility] Comment:Testing performed by : [address] [phone] MCH 27.9 26.7 - 33.7 pg [facility] Comment:Testing performed by : [address] [phone] MCHC 31.9(L) 32.7 - 35.5 g/dL [facility] Comment:Testing performed by : [facility], [address] [place] [phone] RDW CV 18.2(H) 11.8 - 14.6 % [facility] Comment:Testing performed by : [facility], [address] [place] [phone] NRBC abs 0.00 0.00 - 0.01 K/cumm [facility] Comment:Testing performed by : [facility], [address] [place] [phone] Blood 08/30/2022 8:45 AM CDT 08/30/2022 8:49 AM CDT Brittany Lerner TANKROOM TENDER LAB BLOOD ORDERABLES Final Result Performing Organization Address [facility] de Phone Number [facility] [place] [address] * Reticulocyte Count (08/30/2022 8:45 AM CDT) [facility] Retics, absolute 0.038 0.020 - 0.087 M/cumm [facility] Comment:Testing performed by : [facility], [address] [place] [phone] Retics 0.91 0.50 - 1.80 % [facility] Comment:Testing performed by : [facility], [address] [place] [phone] Blood 08/30/2022 8:45 AM CDT 08/30/2022 8:49 AM CDT Brittany Lerner TANKROOM TENDER LAB BLOOD ORDERABLES Final Result Performing Organization Address [facility] de Phone Number [facility] [place] [employer] [place] [address] * (ABNORMAL) Basic metabolic panel (08/30/2022 8:45 AM CDT) [facility] Sodium 140 135 - 145 mmol/L [facility] Comment:Testing performed by : [facility], [address] [place] [phone] Potassium, pl 4.7 3.3 - 4.9 mmol/L [facility] Comment:Testing performed by : [facility], [address] [place] [phone] Chloride 103 97 - 110 mmol/L [facility] Comment:Testing performed by : [facility], [address] [place] [phone] CO2 30 22 - 32 mmol/L [facility] Comment:Testing performed by : [facility], [address] [place] [phone] Anion gap 7 2 - 15 mmol/L [facility] Comment:Testing performed by : [facility], [address] [place] [phone] BUN 21 8 - 25 mg/dL [facility] Comment:Testing performed by : [facility], [address] [place] [phone] Creatinine 1.36(H) 0.80 - 1.30 mg/dL [facility] Comment:Testing performed by : [facility], [address] [place] [phone] Glucose 96 70 - 199 mg/dL [facility] Comment: Interpretive Data Fasting glucose >/= [...] was last revised 2022. Testing performed by: [facility], [address] [place] [phone] Calcium 10.0 8.5 - 10.3 mg/dL [facility] Comment:Testing performed by : [facility], [address] [place] [phone] Blood 08/30/2022 8:45 AM CDT 08/30/2022 8:49 AM CDT Brittany Lerner TANKROOM TENDER LAB BLOOD ORDERABLES Final Result [facility] Department [place] [address] documented in this encounter Visit Diagnoses Diagnosis 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) MCC current use of anticoagulant therapy documented in this encounter Care Teams Media Promoter Relationship Specialty Start Date End Date Timothy Banks MD PCP - General 07/08/16 documented as of this encounter
--- OUTSIDE RECORDS SUMMARY | 2024-04-11 14:00 | XMS_ITS | Encounter Summary ---
Author Organization [facility] Healthcare Address [address] [place] [address] Care Team Providers Care Director Hydrogen Storage Engineering Name Role Phone Timothy Banks MD Primary Care Provider [phone] Encounter Details Date Type Department Care Team (Latest Contact Info) Description 08/31/2021 9:19 AM CDT - 08/31/2021 11:59 PM CDT Hospital Encounter [facility] Advanced Medicine [facility] Advanced Medicine ([facility]) [address] [place] [phone] 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); senior living current use of anticoagulant therapy Discharge Disposition: Discharge to home or self care Social History Tobacco Use Types Packs/Day Years Used Date Smoking Tobacco: Never Smokeless Tobacco: Never Alcohol Use Standard Drinks/Week Comments Yes 0 (1 standard drink = 0.6 oz pur e alcohol) Sex and Gender Information Value Date Recorded Sex Assigned at Not on file 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 73 m2 [facility] Comment: Interpretive Data Reference Interval Normal ?>/= [...] was last reviewed 2021. Testing performed by: [facility], [address] [place] [phone] Blood 08/31/2021 9:42 AM CDT 08/31/2021 9:46 AM CDT us Hillary Gama MD LAB BLOOD ORDERABLES Final Result [facility] Department [place] [address] * (ABNORMAL) Differential, auto (08/31/2021 9:42 AM CDT) Neutrophil abs 4.0 1.8 - 6.6 K/cumm [facility] Comment:Testing performed by : [facility], [address] [place] [phone] Lymphocyte abs 0.8(L) 1.2 - 3.3 K/cumm [facility] Comment:Testing performed by : [facility], [address] [place] [phone] Monocyte abs 0.8 0.2 - 1.2 K/cumm [facility] Comment:Testing performed by : [facility], [address] [place] [phone] Eosinophil abs 0.1 0.0 - 0.5 K/cumm [facility] Comment:Testing performed by : [facility], [address] [place] [phone] Basophil abs 0.0 0.0 - 0.2 K/cumm [facility] Comment:Testing performed by : [facility], [address] [place] [phone] Neutrophil pct 70.4 % [facility] Comment: Interpretive Data Percent cell count reference ranges are not reported, since discordance with absolute values may lead to misinterpretation of CBC data. Current Interpretive Data was last revised on 2017. Testing performed by: [facility], [address] [place] [phone] Lymphocyte pct 13.3 % [facility] Comment: Interpretive Data Percent cell count reference ranges are not reported, since discordance with absolute values may lead to misinterpretation of CBC data. Current Interpretive Data was last revised on 2017. Testing performed by: [facility], [address] [place] [phone] Monocyte pct 14.8 % [facility] Comment:Testing performed by : [facility], [address] [place] [phone] Eosinophil pct 0.9 % [facility] Comment:Testing performed by : [facility], [address] [place] [phone] Basophil pct 0.6 % [facility] Comment:Testing performed by : [facility], [address] [place] [phone] Blood 08/31/2021 9:42 AM CDT 08/31/2021 9:46 AM CDT Hillary Gama MD LAB BLOOD ORDERABLES Final Result [facility] Department [place] [address] * (ABNORMAL) CBC with auto differential (08/31/2021 9:42 AM CDT) WBC 5.7 3.8 - 9.8 K/cumm [facility] Comment:Testing performed by : [facility], [address] [place] [phone] Hgb 11.2(L) 13.8 - 17.2 g/dL [facility] Comment:Testing performed by : [facility], [address] [place] [phone] Hct 35.2(L) 40.7 - 50.3 % [facility] Comment:Testing performed by : [facility], [address] [place] [phone] Plt 299 140 - 440 K/cumm [facility] Comment:Testing performed by : [facility], [address] [place] [phone] MPV 9.9 6.8 - 10.4 fL [facility] Comment:Testing performed by : [address] [phone] RBC 4.21(L) 4.50 - 5.70 M/cumm [facility] Comment:Testing performed by : [address] [phone] MCV 83.8 80.0 - 97.6 fL [facility] Comment:Testing performed by : [facility], [address] [place] [phone] MCH 26.5(L) 26.7 - 33.7 pg [facility] Comment:Testing performed by : [facility], [address] [place] [phone] MCHC 31.7(L) 32.7 - 35.5 g/dL [facility] Comment:Testing performed by : [address] [phone] RDW CV 16.8(H) 11.8 - 14.6 % [facility] Comment:Testing performed by : [facility], [address] [place] [phone] NRBC abs 0.00 0.00 - 0.01 K/cumm [facility] Comment:Testing performed by : [facility], [address] [place] [phone] Blood 08/31/2021 9:42 AM CDT 08/31/2021 9:46 AM CDT Hillary Gama MD LAB BLOOD ORDERABLES Final Result [facility] Department [place] [address] * (ABNORMAL) Basic metabolic panel (08/31/2021 9:42 AM CDT) Sodium 141 135 - 145 mmol/L [facility] Comment:Testing performed by : [facility], [address] [place] [phone] Potassium, pl 4.8 3.3 - 4.9 mmol/L [facility] Comment:Testing performed by : [facility], [address] [place] [phone] Chloride 104 97 - 110 mmol/L [facility] Comment:Testing performed by : [facility], [address] [place] [phone] CO2 28 22 - 32 mmol/L [facility] Comment:Testing performed by : [facility], [address] [place] [phone] Anion gap 9 2 - 15 mmol/L [facility] Comment:Testing performed by : [facility], [address] [place] [phone] BUN 14 8 - 25 mg/dL [facility] Comment:Testing performed by : [address] [phone] Creatinine 1.43(H) 0.80 - 1.30 mg/dL [facility] Comment:Testing performed by : [facility], [address] [place] [phone] Glucose 86 70 - 199 mg/dL [facility] [...] was last revised 2017. Testing performed by: [facility], [address] [place] [phone] Calcium 9.5 8.5 - 10.3 mg/dL [facility] Comment:Testing performed by : [facility], [address] [place] [phone] Blood 08/31/2021 9:42 AM CDT 08/31/2021 9:46 AM CDT Hillary Gama MD LAB BLOOD ORDERABLES Final Result Performing Organization Address City/[facility] Co de Phone Number [facility] Department [place] [address] * Reticulocyte Count (08/31/2021 9:42 AM CDT) Retics, absolute 0.051 0.020 - 0.087 M/cumm [facility] Comment:Testing performed by : [facility], [address] [place] [phone] Retics 1.21 0.50 - 1.80 % [facility] Comment:Testing performed by : [facility], [address] [place] [phone] Blood 08/31/2021 9:42 AM CDT 08/31/2021 9:46 AM CDT Hillary Gama MD LAB BLOOD ORDERABLES Final Result Performing Organization Address [facility]/State/ZIP Co de Phone Number [facility] Department [place] [address] documented in this encounter Visit Diagnoses Diagnosis 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) senior living current use of anticoagulant therapy documented in this encounter Care Teams Director Hydrogen Storage Engineering Relationship Specialty Start Date End Date Timothy Banks MD PCP - General 07/08/16 documented as of this encounter
--- OUTSIDE RECORDS SUMMARY | 2024-04-11 14:00 | XMS_ITS | Encounter Summary ---
Author Organization [facility] Facility Care Team Providers Care Windows Vmware Administrator Name Role Phone Timothy Banks MD Primary Care Provider [phone] Encounter Details Date Type Department Care Team (Latest Contact Info) Description 07/08/2019 Travel Social History Tobacco Use Types Packs/Day Years Used Date Smoking Tobacco: Never Smokeless Tobacco: Never Alcohol Use Standard Drinks/Week Comments Yes 0 (1 standard drink = 0.6 oz pur e alcohol) Sex and Gender Information Value Date Recorded Sex Assigned at Not on file Legal Sex Male 4:19 AM RF MANAGER Gender Identity Male 01/12/2020 7:43 PM [...] on filedocumented in this encounter Care Teams Windows Vmware Administrator Relationship Specialty Start Date End Date Timothy Banks MD PCP - General 07/08/16 documented as of this encounter
--- OUTSIDE RECORDS SUMMARY | 2024-04-11 14:01 | XMS_ITS | Encounter Summary ---
Author Organization [facility] Medical Group Address [address] [place] [address] Care Team Providers Care Bead Machine Operator Name Role Phone Timothy Banks MD Primary Care Provider Reason for Visit * Reason Comments Follow-up 3 mo f/u on RBBB, SV T, cardiac arrhythmia Encounter Details Date Type Department Care Team (Latest Contact Info) Description 09/05/2017 8:45 AM CDT Office Visit [facility] [address] [place] [address] Jayro Kaminski MD [facility] [phone] FDC current use of anticoagulant therapy (Primary Dx); [...] on file Legal Sex Male 4:19 AM TURNING LATHE TENDER Gender Identity Male 01/12/2020 7:43 PM [...] him to have an echocardiogram at [facility] which was normal except for moderate LVH. He did have mild left atrial enlargement. Mild mitral, aortic and tricuspid regurgitation. Diastolic dysfunction was present. He does have a history of pulmonary embolism, DVT and [place] filter. He had a recurrent DVT in [...] MEDICAL recurrent DVT, gerd, s/[facility], ; Comments: [facility] 03/31/2016 - ??? 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
--- OUTSIDE RECORDS SUMMARY | 2024-04-11 14:01 | XMS_ITS | Encounter Summary ---
Author Organization [facility] Medical Group Address [address] [place] [address] Care Team Providers Care Support Coordinator Name Role Phone Timothy Banks MD Primary Care Provider [phone] Reason for Visit * Reason Comments Follow-up 6 mo f/u on VTE, LVH , lightheadedness Encounter Details Date Type Department Care Team (Latest Contact Info) Description 02/21/2018 9:45 AM LINOLEUM TILE LAYER Office Visit [facility] [address] [address] [address] [place] [address] Jayro Kaminski MD [facility] [phone] 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 (Primary Dx); [...] on file Legal Sex Male 4:19 AM LINOLEUM TILE LAYER Gender Identity Male 01/12/2020 7:43 PM CDT Sexual Orientation Straight 01/12/2020 7: 43 PM CDT documented as of this encounter Last Filed Vital Signs Vital Sign Reading Time Taken Comments Blood Pressure 126/78 02/21/2018 9:49 AM LINOLEUM TILE LAYER Pulse 81 02/21/2018 9:49 AM LINOLEUM TILE LAYER Temperature - - Respiratory Rate - - Oxygen Saturation 98% 02/21/2018 9:49 AM LINOLEUM TILE LAYER Inhaled Oxygen Concentration - - Weight 111.6 kg (246 lb) 02/21/2018 9:49 AM LINOLEUM TILE LAYER Height 185.4 cm (6' 1 ) 02/21/2018 9:49 AM LINOLEUM TILE LAYER Body Mass Index 32.46 02/21/2018 9:49 AM LINOLEUM TILE LAYER documented in this encounter Progress Notes * [...] led him to have an echocardiogram at [facility] which was normal except for [...] MEDICAL recurrent DVT, gerd, [facility], ; Comments: [facility] 03/31/2016 - ??? HX OTHER MEDICAL CKD; Comments: [facility] 03/31/2016 - Social History Substance Use Topics [...] sooner as clinically indicated Jayro Kaminski MD, [facility] LEUM TILE LAYER documented in this encounter Plan of Treatment Not on file documented as of this encounter Visit Diagnoses Diagnosis alf current use of anticoagulant therapy- Primary Left ventricular hypertrophy Cardiomegaly Snoring Other dyspnea and respiratory abnormality Hypersomnolence Hypersomnia, unspecified Tiredness Other malaise and fatigue Other fatigue documented in this encounter Care Teams Support Coordinator Relationship Specialty Start Date End Date Timothy Banks MD PCP - General 07/08/16 documented as of this encounter
--- OUTSIDE RECORDS SUMMARY | 2024-04-11 14:01 | XMS_ITS | Encounter Summary ---
Author Organization [facility] Address [address] [place] [address] Phone Care Team Providers Care Clay Pigeon Loader Name Role Phone Timothy Banks MD Primary Care Provider [phone] Encounter Details Date Type Department Care Team (Late st Contact Info) Description 08/29/2017 Orders Only [facility] Hematology [address] [place] [address] [place] [phone] Hillary Gama MD [address] [place], [place] [id number] Social History Tobacco Use Types Packs/Day Years Used Date Smoking Tobacco: Never Smokeless Tobacco: Never Alcohol Use Standard Drinks/Week Comments Yes 0 (1 standard drink = 0.6 oz pur e alcohol) Sex and Gender Information Value Date Recorded Sex Assigned at Not on file Legal Sex Male 4:19 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 RBC 4.74 4.50 - 5.70 M/cumm [facility] Hgb 13.4(L) 13.8 - 17.2 g/dL [facility] Hct 41.6 40.7 - 50.3 % [facility] Mean Cellular Volume - CAM 87.8 80.0 - 97.[address] [facility] Mean Cellular Hemoglobin - CAM 28.2 26.7 - 33.[address] [facility] Mean Cellular Hemoglobin Concentration - CAM 32.1(L) 32.7 - 35.5 g/dL [facility] Rdw 14.7(H) 11.8 - 14.6 % [facility] Plt 329 140 - 440 K/cumm [facility] Mean Platelet Volume - CAM 9.5 6.8 - 10.[address] [facility] Neutrophil pct 57.7 38.7 - 74.5 % [facility] Lymphocyte pct 26.1 20.0 - 54.3 % [facility] Monos 13.1 4.3 - 13.5 % [facility] Eosinophil pct 2.0 0.0 - 6.0 % [facility] Basophil pct 1.1 0.0 - 3.0 % [facility] Neutrophil abs 3.1 1.8 - 6.6 K/cumm [facility] Lymphocyte abs 1.4 1.2 - 3.3 K/cumm [facility] Monocyte abs 0.7 0.2 - 1.2 K/cumm [facility] Eosinophils, abs 0.1 0.0 - 0.5 K/cumm [facility] Basophil abs 0.1 0.0 - 0.2 K/cumm [facility] NRBC 0.0 0.0 - 0.2 % [facility] NRBC abs 0.00 0.00 - 0.01 K/cumm [facility] Blood specimen (specimen) 08/29/2017 3:05 PM CDT 08/29/2017 3:07 PM CDT Narrative [facility] - 08/29/2017 3:10 PM CDT us Hillary Gama MD LAB BLOOD ORDERABLES Final Result [facility] [place] [address] * (ABNORMAL) Basic metabolic panel (08/29/2017 3:05 PM CDT) Sodium 145 135 - 145 mmol/L [facility] Potassium, pl 5.0(H) 3.3 - 4.9 mmol/L [facility] Chloride 107 97 - 110 mmol/L [facility] CO2 30 22 - 32 mmol/L [facility] BUN 15 8 - 25 mg/dL [facility] Glucose 108 70 - 199 mg/dL [facility] Comment: Interpretive Data Fasting glucose [...] 2017. Creatinine 1.43(H) 0.80 - 1.30 mg/dL [facility] Calcium 9.6 8.5 - 10.3 mg/dL [facility] Anion gap 8 2 - 15 mmol/L [facility] Blood specimen (specimen) 08/29/2017 3:05 PM CDT 08/29/2017 3:18 PM CDT Narrative [facility] - 08/29/2017 3:47 PM CDT us Hillary Gama MD LAB BLOOD ORDERABLES Final Result Performing Organization Address City/[facility]/ZIP Co de Phone Number [facility] Department [place] [address] documented in this encounter Visit Diagnoses Not on filedocumented in this encounter Care Teams Clay Pigeon Loader Relationship Specialty Start Date End Date Timothy Banks MD PCP - General 07/08/16 documented as of this encounter
--- OUTSIDE RECORDS SUMMARY | 2024-04-11 14:01 | XMS_ITS | Encounter Summary ---
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 [...] MEDICAL recurrent DVT, gerd, s/p hiatal hernia [facility], ; Comments: [facility] 03/31/2016 - ??? HX OTHER MEDICAL CKD; Comments: [facility] 03/31/2016 - Social History Tobacco Use ??? 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
--- OUTSIDE RECORDS SUMMARY | 2024-04-11 14:01 | XMS_ITS | Encounter Summary ---
Author Organization [facility] Address [address] [place] [address] Phone Care Team Providers Care Superintendent Plant Name Role Phone Timothy Banks MD Primary Care Provider [phone] Encounter Details Date Type Department Care Team (Latest Contact Info) Description 09/04/2018 1:45 PM CDT Office Visit [facility] Hematology [address] [facility] [address] 7th [place] [address] [place] [phone] Hillary Gama MD [address] [place], [place] [id number] 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) (Primary Dx); 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 Social History Tobacco Use Types Packs/Day Years Used Date Smoking Tobacco: Never Smokeless Tobacco: Never Alcohol Use Standard Drinks/Week Comments Yes 0 (1 standard drink = 0.6 oz pur e alcohol) Sex and Gender Information Value Date Recorded Sex Assigned at Not on file Legal Sex Male 4:19 AM 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 Current Treatment: 1.?2004, DVT/PE following hiatal repair status post [place] filter placement. ??Warfarin started for 6 months. [...] file Gets together: Not on file Attends nondenominational service: Not on file Active member of [...] List Diagnosis ??? Ventricular premature beats ??? 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 RBBB [...] Visit Diagnoses Diagnosis 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)- Primary half-way current use of anticoagulant therapy documented in this encounter Discontinued Medications Medication Sig Discontinue Reason Start Date End Da te multivitamin tabletIndications:Vitamin Deficiency Prevention Take 1 tablet by mouth. 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
--- OUTSIDE RECORDS SUMMARY | 2024-04-11 14:01 | XMS_ITS | Encounter Summary ---
Author Organization [facility] Address [address] [place] [address] Care Team Providers Care Health Information Administrator Name Role Phone Timothy Banks MD Primary Care Provider Encounter Details Date Type Department Care Team (Late st Contact Info) Description 07/13/2018 Orders Only [facility] Health Information Management [address] [place] [address] Scanning, Provider Social History Tobacco Use Types Packs/Day Years Used Date Smoking Tobacco: Never Smokeless Tobacco: Never Alcohol Use Standard Drinks/Week Comments Yes 0 (1 standard drink = 0.6 oz pur e alcohol) Sex and Gender Information Value Date Recorded Sex Assigned at Not on file Legal Sex Male 4:19 AM DIRECTOR PRODUCT SAFETY Gender Identity Male 01/12/2020 7:43 PM CDT [...] filedocumented in this encounter Care Teams Health Information Administrator Relationship Specialty Start Date End Date Timothy Banks MD PCP - General 07/08/16 documented as of this encounter
--- OUTSIDE RECORDS SUMMARY | 2024-04-11 14:01 | XMS_ITS | Encounter Summary ---
Author Organization [facility] Address [address] [place] [address] Phone Care Team Providers Care Builder Beam Name Role Phone Timothy Banks MD Primary Care Provider Encounter Details Date Type Department Care Team (Late st Contact Info) Description 08/31/2017 Orders Only [facility] Hematology [address] [facility] Advanced Medicine 7th [place] [address] [place] [address] Hillary Gama MD [address] [place] [address] Social History Tobacco Use Types Packs/Day Years Used Date Smoking Tobacco: Never Smokeless Tobacco: Never Alcohol Use Standard Drinks/Week Comments Yes 0 (1 standard drink = 0.6 oz pur e alcohol) Sex and Gender Information Value Date Recorded Sex Assigned at Not on file Legal Sex Male 4:19 AM ACCREDITATION SPECIALIST Gender Identity Male 01/12/2020 7:43 PM CDT Sexual Orientation Straight 01/12/2020 7: 43 PM CDT documented as of this encounter Plan of Treatment Not on file documented as of this encounter Visit Diagnoses Not on filedocumented in this encounter Care Teams Builder Beam Relationship Specialty Start Date End Date Timothy Banks MD PCP - General 07/08/16 documented as of this encounter
--- OUTSIDE RECORDS SUMMARY | 2024-04-11 14:01 | XMS_ITS | Encounter Summary ---
Author Organization [facility] Address [address] [facility] [address] [facility] [address] [place] [address] Care Team Providers Care Media Manager Name Role Phone Timothy Banks MD Primary Care Provider [phone] Encounter Details Date Type Department Care Team (Late st Contact Info) Description 06/19/2018 Telephone [facility] [address] [address] [address] [place] [address] Jayro Kaminski MD [address] [id number] Social History Tobacco Use Types Packs/Day Years Used Date Smoking Tobacco: Never Smokeless Tobacco: Never Alcohol Use Standard Drinks/Week Comments Yes 0 (1 standard drink = 0.6 oz pur e alcohol) Sex and Gender Information Value Date Recorded Sex Assigned at Not on file Legal Sex Male 4:19 AM IVORY POLISHER Gender Identity Male 01/12/2020 7:43 PM [...] on filedocumented in this encounter Care Teams Media Manager Relationship Specialty Start Date End Date Timothy Banks MD PCP - General 07/08/16 documented as of this encounter
--- OUTSIDE RECORDS SUMMARY | 2024-04-11 14:01 | XMS_ITS | Encounter Summary ---
Author Organization [facility] Address [address] [place] [address] Phone Care Team Providers Care Clerical Secretary Name Role Phone Timothy Banks MD Primary Care Provider [phone] Encounter Details Date Type Department Care Team (Latest Contact Info) Description 03/06/2018 1:00 PM COORDINATE MEASURING MACHINE TECHNICIAN Office Visit [facility] Hematology [address] [facility] Advanced Medicine 7th [place] [address] [place] [address] Hillary Gama MD [address] [place], [place] [id number] 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) (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 Dx); 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 Social History Tobacco Use Types Packs/Day Years Used Date Smoking Tobacco: Never Smokeless Tobacco: Never Alcohol Use Standard Drinks/Week Comments Yes 0 (1 standard drink = 0.6 oz pur e alcohol) Sex and Gender Information Value Date Recorded Sex Assigned at Not on file Legal Sex Male 4:19 AM COORDINATE MEASURING MACHINE TECHNICIAN Gender Identity Male 01/12/2020 7:43 PM CDT Sexual Orientation Straight 01/12/2020 7: 43 PM CDT documented as of this encounter Last Filed Vital Signs Vital Sign Reading Time Taken Comments Blood Pressure 132/85 03/06/2018 1:23 PM COORDINATE MEASURING MACHINE TECHNICIAN Pulse 91 03/06/2018 1:23 PM COORDINATE MEASURING MACHINE TECHNICIAN Temperature 36.6 ??C (97.9 ??F) 03/06/2018 1:23 PM CS T Respiratory Rate 18 03/06/2018 1:23 PM COORDINATE MEASURING MACHINE TECHNICIAN Oxygen Saturation 97% 03/06/2018 1:23 PM COORDINATE MEASURING MACHINE TECHNICIAN Inhaled Oxygen Concentration - - Weight 110.2 kg (243 lb) 03/06/2018 1:23 PM COORDINATE MEASURING MACHINE TECHNICIAN Height - - Body Mass Index 32.06 02/21/2018 9:49 AM COORDINATE MEASURING MACHINE TECHNICIAN documented in this encounter Progress Notes * Brittany Lerner, ROD BENDING MACHINE OPERATOR - 03/06/2018 1:00 PM CST PATIENT NAME: [...] List Diagnosis ??? Ventricular premature beats ??? senior living current use of anticoagulant therapy ??? RBBB [...] next follow up appointment. Brittany Lerner NP DINATE MEASURING MACHINE TECHNICIAN documented in this encounter Plan of [...] Creatinine 1.68(H) 0.80 - 1.30 mg/dL [facility] Glucose 138 70 - 199 mg/dL [facility] Comment: Interpretive Data Fasting glucose [...] 2017. Calcium 9.6 8.5 - 10.3 mg/dL [facility] Blood specimen (specimen) 09/04/2018 1:14 PM CDT 09/04/2018 1:22 PM CDT Narrative [facility] - 09/04/2018 1:58 PM CDT Brittany Lerner ROD BENDING MACHINE OPERATOR LAB BLOOD ORDERABLES Final Result [facility] Department of Laboratories [place], [place] [id number] * (ABNORMAL) CBC with auto differential (09/04/2018 1:13 PM CDT) Pathologist [facility] WBC 5.4 3.8 - 9.8 K/cumm [facility] Comment:Testing performed by : [facility], [address] [place] [phone] Hgb 13.1(L) 13.8 - 17.2 g/dL [facility] Comment:Testing performed by : [facility], [address] [place] [phone] Hct 40.1(L) 40.7 - 50.3 % [facility] Comment:Testing performed by : [facility], [address] [place] [phone] Plt 335 140 - 440 K/cumm [facility] Comment:Testing performed by : [facility], [address] [place] [phone] MPV 9.5 6.8 - 10.4 fL [facility] Comment:Testing performed by : [facility], [address] [place], [place] [phone] RBC 4.55 4.50 - 5.70 M/cumm [facility] Comment:Testing performed by : [facility], [address] [place], [place] [phone] MCV 88.2 80.0 - 97.6 fL [facility] Comment:Testing performed by : [facility], [address] [place], [place] [phone] MCH 28.8 26.7 - 33.7 pg [facility] Comment:Testing performed by : [facility], [address] [place], [place] [phone] MCHC 32.7 32.7 - 35.5 g/dL [facility] Comment:Testing performed by : [facility], [address] [place], [place] [phone] RDW CV 13.9 11.8 - 14.6 % [facility] Comment:Testing performed by : [facility], [address] [place] [phone] NRBC abs 0.01 0.00 - 0.01 K/cumm [facility] Comment:Testing performed by : [facility], [address] [place] [phone] Blood specimen (specimen) 09/04/2018 1:13 PM CDT 09/04/2018 1:16 PM CDT Narrative [facility] - 09/04/2018 1:21 PM CDT us Brittany Lerner NP LAB BLOOD ORDERABLES Final Result [facility] [place] [address] documented in this encounter Visit Diagnoses Diagnosis 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)- 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
--- OUTSIDE RECORDS SUMMARY | 2024-04-11 14:01 | XMS_ITS | Encounter Summary ---
Author Organization [facility] Care Team Providers Care Guest Services Agent Name Role Phone Timothy Banks MD [...] file Legal Sex Male 4:19 AM CONTACT CENTER ASSISTANT Gender Identity Male 01/12/2020 7:43 PM CDT Sexual Orientation Straight 01/12/2020 7: 43 PM CDT documented as of this encounter Plan of Treatment Not on file documented as of this encounter Visit Diagnoses Not on filedocumented in this encounter Care Teams Guest Services Agent Relationship Specialty Start Date End Date Timothy Banks MD PCP - General 07/08/16 documented as of this encounter
--- OUTSIDE RECORDS SUMMARY | 2024-04-11 14:01 | XMS_ITS | Encounter Summary ---
Author Organization [facility] Address [address] [facility] [address] [place] [address] Care Team Providers Care Campus Safety Officer Name Role Phone Timothy Banks MD Primary Care Provider [phone] Encounter Details Date Type Department Care Team (Late st Contact Info) Description 03/16/2018 Telephone [facility] [address] [address] [address] [place] [address] Jayro Kaminski MD [address] [phone] Social History Tobacco Use Types Packs/Day Years Used Date Smoking Tobacco: Never Smokeless Tobacco: Never Alcohol Use Standard Drinks/Week Comments Yes 0 (1 standard drink = 0.6 oz pur e alcohol) Sex and Gender Information Value Date Recorded Sex Assigned at Not on file Legal Sex Male 4:19 AM DRAFTER TOPOGRAPHICAL Gender Identity Male 01/12/2020 7:43 PM CDT Sexual Orientation Straight 01/12/2020 7: 43 PM CDT documented as of this encounter Miscellaneous Notes * Telephone Encounter - Lorraine Levine RN - 03/19/2018 1:13 PM DRAFTER TOPOGRAPHICAL Request for consult faxed to Dr Martinez. TER TOPOGRAPHICAL * Telephone Encounter - Lakshmi Avelar - 03/19/2018 12:13 PM DRAFTER TOPOGRAPHICAL Pt says its OK to forward info to Dr. Martinez. TER TOPOGRAPHICAL * Telephone Encounter - Lorraine Levine RN - 03/16/2018 3:17 PM DRAFTER TOPOGRAPHICAL Per Dr Kaminski, Moderate sleep apnea noted. ??Please refer to sleep medicine for further treatment and evaluation. ??This can either be with Dr. Martinez here or Dr. Mustafa through [facility] for pt to call with OK to forward info to Dr Martinez since pt lives in [place]. TER TOPOGRAPHICAL documented in this encounter Plan of Treatment Not on file documented as of this encounter Visit Diagnoses Not on filedocumented in this encounter Care Teams Campus Safety Officer Relationship Specialty Start Date End Date Timothy Banks MD PCP - General 07/08/16 documented as of this encounter
--- OUTSIDE RECORDS SUMMARY | 2024-04-11 14:01 | XMS_ITS | Encounter Summary ---
Author Organization [facility] Address [address] [place] [address] Phone Care Team Providers Care Insurance Claims Specialist Name Role Phone Timothy Banks MD Primary Care Provider + [phone] Reason for Visit * Oncology (Routine) - Closed Specialty Diagnoses / Procedures Referred By Contshakila t Referred To Contact Lab Diagnoses 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) care home current use of anticoagulant therapy LAB,ROV Procedures ONCBCN LAB APPOINTMENT ARM Brittany Rodriguez NP [address] [place] [address] Phone: tel: fax: [facility] Oncology [facility] Advanced Medicine 7th [place] [address] [place] [address] Phone: tel: Referral ID Status Reason Start Date Expiration Date Visits Re quested Visits Authorized [id number] Closed 09/04/2018 04/09/2019 99 99 Encounter Details Date Type Department Care Team (Late st Contact Info) Description 09/04/2018 1:15 PM CDT Lab [facility] Oncology [address] [facility] Advanced Medicine 7th [place] [address] [place] [address] Hillary Gama MD [address] [place] [address] 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); care home current use of anticoagulant therapy Discharge Disposition: Discharge to home or self care Social History Tobacco Use Types Packs/Day Years Used Date Smoking Tobacco: Never Smokeless Tobacco: Never Alcohol Use Standard Drinks/Week Comments Yes 0 (1 standard drink = 0.6 oz pur e alcohol) Sex and Gender Information Value Date Recorded Sex Assigned at Not on file Legal Sex Male 4:19 AM MANAGER CLINICAL APPLICATIONS Gender Identity Male 01/12/2020 7:43 PM CDT [...] 09/04/2018 1:14 PM CDT 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) 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 use of 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 DIFFERENTIAL AUTO Routine 09/04/2018 1:1 3 PM CDT 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) 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 use of anticoagulant therapy CBC WITH AUTO DIFFERENTIAL Routine 09/04/2018 1:13 PM CDT 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) 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 use of anticoagulant therapy documented in this encounter Results * (ABNORMAL) Basic metabolic panel (09/04/2018 1:14 PM CDT) Sodium 144 135 - 145 mmol/L [facility] Potassium, pl 4.7 3.3 - 4.9 mmol/L [facility] Chloride 109 97 - 110 mmol/L [facility] CO2 27 22 - 32 mmol/L [facility] Anion gap 8 2 - 15 mmol/L [facility] BUN 19 8 - 25 mg/dL [facility] Creatinine 1.68(H) 0.80 - 1.30 mg/dL [facility] Glucose 138 70 - 199 mg/dL [facility] Comment: Interpretive Data Fasting glucose [...] CDT 09/04/2018 1:22 PM CDT Narrative [facility] - 09/04/2018 1:58 PM CDT Brittany Lerner CERAMIC MOLD DESIGNER LAB BLOOD ORDERABLES Final Result [facility] [address] [facility] Department [place] [address] * Differential, auto (09/04/2018 1:13 PM CDT) Neutrophil abs 3.2 1.8 - 6.6 K/cumm [facility] Comment:Testing performed by : [facility], [address] [place] [phone] Lymphocyte abs 1.4 1.2 - 3.3 K/cumm [facility] Comment:Testing performed by : [facility], [address] [place] [phone] Monocyte abs 0.6 0.2 - 1.2 K/cumm [facility] Comment:Testing performed by : [facility], [address] [place] [phone] Eosinophil abs 0.2 0.0 - 0.5 K/cumm [facility] Comment:Testing performed by : [facility], [address] [place] [phone] Basophil abs 0.0 0.0 - 0.2 K/cumm [facility] Comment:Testing performed by : [address] [phone] Neutrophil pct 58.7 % [facility] Comment: Interpretive Data Percent cell count reference ranges are not reported, since discordance with absolute values may lead to misinterpretation of CBC data. Current Interpretive Data was last revised on 2017. Testing performed by: [facility], [address] [place] [phone] Lymphocyte pct 25.7 % [facility] Comment: Interpretive Data Percent cell count reference ranges are not reported, since discordance with absolute values may lead to misinterpretation of CBC data. Current Interpretive Data was last revised on 2017. Testing performed by: [facility], [address] [place] [phone] Monocyte pct 10.4 % [facility] Comment:Testing performed by : [facility], [address] [place] [phone] Eosinophil pct 4.3 % [facility] Comment:Testing performed by : [facility], [address] [place] [phone] Basophil pct 0.9 % [facility] Comment:Testing performed by : [facility], [address] [place] [phone] Blood specimen (specimen) 09/04/2018 1:13 PM CDT 09/04/2018 1:16 PM CDT Narrative [facility] - 09/04/2018 1:21 PM CDT us Brittany Lerner CERAMIC MOLD DESIGNER LAB BLOOD ORDERABLES Final Result [facility] One [facility] Department of Laboratories [place], [place] [address] * (ABNORMAL) CBC with auto differential (09/04/2018 1:13 PM CDT) WBC 5.4 3.8 - 9.8 K/cumm [facility] Comment:Testing performed by : [facility], [address] [place] [phone] Hgb 13.1(L) 13.8 - 17.2 g/dL [facility] Comment:Testing performed by : [facility], [address] [place] [phone] Hct 40.1(L) 40.7 - 50.3 % [facility] Comment:Testing performed by : [facility], [address] [place] [phone] Plt 335 140 - 440 K/cumm [facility] Comment:Testing performed by : [facility], [address] [place] [phone] MPV 9.5 6.8 - 10.4 fL [facility] Comment:Testing performed by : [facility], [address] [place] [phone] RBC 4.55 4.50 - 5.70 M/cumm [facility] Comment:Testing performed by : [facility], [address] [place] [phone] MCV 88.2 80.0 - 97.6 fL [facility] Comment:Testing performed by : [facility], [address] [place] [phone] MCH 28.8 26.7 - 33.7 pg [facility] Comment:Testing performed by : [facility], [address] [place] [phone] MCHC 32.7 32.7 - 35.5 g/dL [facility] Comment:Testing performed by : [facility], [address] [place] [phone] RDW CV 13.9 11.8 - 14.6 % [facility] Comment:Testing performed by : [facility], [address] [place] [phone] NRBC abs 0.01 0.00 - 0.01 K/cumm [facility] Comment:Testing performed by : [facility], [address] [place] [phone] Blood specimen (specimen) 09/04/2018 1:13 PM CDT 09/04/2018 1:16 PM CDT Narrative [facility] - 09/04/2018 1:21 PM CDT Brittany Lerner NP LAB BLOOD ORDERABLES Final Result [facility] One [facility] Department [place] [address] documented in this encounter Visit Diagnoses Diagnosis 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) 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
--- OUTSIDE RECORDS SUMMARY | 2024-04-11 14:01 | XMS_ITS | Encounter Summary ---
Author Organization [facility] Address [address] [place] [address] Phone Care Team Providers Care Director Corporate Communications Name Role Phone Timothy Banks MD Primary Care Provider [phone] Encounter Details Date Type Department Care Team (Late st Contact Info) Description 08/25/2017 Orders Only [facility] ProviderDusty MD [address] [place] [address] Social History Tobacco Use Types Packs/Day Years Used Date Smoking Tobacco: Never Smokeless Tobacco: Never Alcohol Use Standard Drinks/Week Comments Yes 0 (1 standard drink = 0.6 oz pur e alcohol) Sex and Gender Information Value Date Recorded Sex Assigned at Not on file Legal Sex Male 4:19 AM RN POST PARTUM Gender Identity Male 01/12/2020 7:43 PM CDT [...] filedocumented in this encounter Care Teams Director Corporate Communications Relationship Specialty Start Date End Date Timothy Banks MD PCP - General 07/08/16 documented as of this encounter
--- OUTSIDE RECORDS SUMMARY | 2024-04-11 14:01 | XMS_ITS | Encounter Summary ---
Author Organization [facility] Address [address] [place] [address] Phone Care Team Providers Care Upholstery Trimmer Name Role Phone Timothy Banks MD Primary Care Provider [phone] Encounter Details Date Type Department Care Team (Late st Contact Info) Description 09/25/[address] 7th [place] [address] [place] [address] Mercedes Garcia RN Social History Tobacco Use Types Packs/Day Years Used Date Smoking Tobacco: Never Smokeless Tobacco: Never Alcohol Use Standard Drinks/Week Comments Yes 0 (1 standard drink = 0.6 oz pur e alcohol) Sex and Gender Information Value Date Recorded Sex Assigned at Not on file Legal 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
--- OUTSIDE RECORDS SUMMARY | 2024-04-11 14:02 | XMS_ITS | Encounter Summary ---
Author Organization [facility] Address [address] [place] [address] Care Team Providers Care Primary Clinician Name Role Phone Timothy Banks MD Primary Care Provider [phone] Reason for Referral * (Routine) - Closed Specialty Diagnoses / Procedures Referred By Contac t Referred To Contact Diagnoses SVT (supraventricular tachycardia) (HCC) Cardiac arrhythmia, unspecified cardiac arrhythmia type Procedures 48 HR Holter Monitor Jayro Kaminski MD Phone: tel: fax: Referral ID Status Reason Start Date Expiration Date Visits Re quested Visits Authorized [id number] Closed 07/03/2017 12/30/2017 1 1 Reason for Visit * Reason Comments Hospital Follow Up for SVT and thrombus RLE Encounter Details Date Type Department Care Team (Latest Contact Info) Description 07/03/2017 11:45 AM CDT Office Visit [facility] [address] [address] [address] [place] [address] Jayro Kaminski MD [facility] [id number] intermediate frame tender current use of anticoagulant therapy (Primary Dx); [...] on file 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 male with arrhythmia and PVCs. He was seen because of an upper respiratory tract infection and bronchitis by his primary care physician. Nurse practitioner noticed an irregular heartbeat an EKG showed right bundle branch block with PVCs. This led him to have an echocardiogram at [facility] which was normal except for moderate LVH. He did have mild left atrial enlargement. Mild mitral, aortic and tricuspid regurgitation. Diastolic dysfunction was present. He does have a history of pulmonary embolism, DVT and [place] filter. He had a recurrent DVT in [...] gerd, s/p hiatal hernia [facility], ; Comments: [facility] 03/31/2016 - ??? HX OTHER MEDICAL CKD; Comments: [facility] 03/31/2016 - Social History Substance Use [...] Moderate but no evidence of failure 4. intermediate frame tender current use of anticoagulant therapy No bleeding [...] may want referral to Dr. Jara at [place] for Hematology opinion. Follow-up in 3 months or sooner as clinically indicated Jayro Kaminski MD, [facility] documented in this encounter Plan of Treatment Pending Results Name Type Priority Associated Diagnoses Date /Time 48 HR Holter Monitor Cardiac Services Routine SVT (supraventricular tachycardia) ([facility]) Cardiac arrhythmia, unspecified cardiac arrhythmia type 07/03/2017 1:29 PM CDT Scheduled Orders Name Type Priority Associated Diagnoses Orde r Schedule 48 HR Holter Monitor Cardiac Services Routine SVT (supraventricular tachycardia) ([facility]) Cardiac arrhythmia, unspecified cardiac arrhythmia type Expected: 07/03/2017, Expires: 07/03/2018 documented as of this encounter Visit Diagnoses Diagnosis intermediate frame tender current use of anticoagulant therapy- Primary Cardiac arrhythmia, unspecified cardiac arrhythmia type SVT (supraventricular tachycardia) ([facility]) Other specified cardiac dysrhythmias RBBB documented in this encounter Historical Medications * This list may reflect changes made after this encounter. multivitamin tabletIndications :Vitamin Deficiency Prevention Take 1 tablet by mouth. 09/04/2018 added in this encounter Care Teams Primary Clinician Relationship Specialty Start Date End Date Timothy Banks MD PCP - General 07/08/16 documented as of this encounter
--- OUTSIDE RECORDS SUMMARY | 2024-04-11 14:02 | XMS_ITS | Encounter Summary ---
Author Organization [facility] Address [address] [place] [address] Care Team Providers Care Pound Keeper Name Role Phone Timothy Banks MD Primary Care Provider [phone] Encounter Details Date Type Department Care Team (Late st Contact Info) Description 06/13/2017 Orders Only [facility] [address] [place] [address] Provider, MD Dusty [address] [place], [place] [id number] Social History Tobacco Use Types Packs/Day Years Used Date Smoking Tobacco: Never Smokeless Tobacco: Never Alcohol Use Standard Drinks/Week Comments Yes 0 (1 standard drink = 0.6 oz pur e alcohol) Sex and Gender Information Value Date Recorded Sex Assigned at Not on file 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
--- OUTSIDE RECORDS SUMMARY | 2024-04-11 14:02 | XMS_ITS | Encounter Summary ---
Author Organization [facility] Address [address] [place] [address] Care Team Providers Care Brassiere Cup Mold Cutter Name Role Phone Timothy Banks MD Primary Care Provider [phone] Encounter Details Date Type Department Care Team (Late st Contact Info) Description 07/28/2017 Telephone [facility] [address] [address] [address] [place] [address] Jayro Kaminski MD [facility] [id number] Social History Tobacco Use Types Packs/Day Years Used Date Smoking Tobacco: Never Smokeless Tobacco: Never Alcohol Use Standard Drinks/Week Comments Yes 0 (1 standard drink = 0.6 oz pur e alcohol) Sex and Gender Information Value Date Recorded Sex Assigned at Not on file 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
--- OUTSIDE RECORDS SUMMARY | 2024-04-11 14:02 | XMS_ITS | Encounter Summary ---
Author Organization [facility] Address [address] [place] [address] Care Team Providers Care Health Insurance Agent Name Role Phone Timothy Banks MD Primary Care Provider [phone] Encounter Details Date Type Department Care Team (Late st Contact Info) Description 07/03/2017 Orders Only [facility] [address] [place] [address] Provider, MD Dusty [address] [place], [place] [id number] Social History Tobacco Use Types Packs/Day Years Used Date Smoking Tobacco: Never Smokeless Tobacco: Never Alcohol Use Standard Drinks/Week Comments Yes 0 (1 standard drink = 0.6 oz pur e alcohol) Sex and Gender Information Value Date Recorded Sex Assigned at Not on file 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
--- OUTSIDE RECORDS SUMMARY | 2024-04-11 14:02 | XMS_ITS | Encounter Summary ---
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 [facility] ? Department of Laboratories ?[place] [address] ?[facility] ?Outpatient ?Physician Patient Name: ? MONIQUE NADEEM W Med Rec Number: ?? [id number] Date of : ?1945 Gender/Age: ? Male [...] ? [Yellow] Clarity ? Clear ?[Clear] Specific [place] ??1.017 ?[1.003-1.030] pH ?5.5 ?[5.0-8.0] Albumin ? [...] ORDERABLES Final Resul t Performing Organization Address [facility] de Phone Number HISTORICAL RESULTS * (ABNORMAL) [...] ORDERABLES Final Resul t Performing Organization Address [facility] de Phone Number HISTORICAL RESULTS * Plasma parathyroid hormone (PTH), intact (08/19/2013 2:11 PM CDT) PTH, intact See Comment 14 - 72 pg/ml HISTORICAL RESULTS Comment:{Credited, quantity not sufficient.} Plasma 08/19/2013 2:11 PM CDT Tavares Hannon LAB BLOOD ORDERABLES Final Resul t Performing Organization Address [facility] de Phone Number HISTORICAL RESULTS * (ABNORMAL) [...] ORDERABLES Final Resul t Performing Organization Address [facility] de Phone Number HISTORICAL RESULTS * [...] ORDERABLES Final Resul t Performing Organization Address [facility] Co de Phone Number HISTORICAL RESULTS documented in this encounter Visit Diagnoses Diagnosis Chronic kidney disease, stage III (moderate) (HCC) Chronic kidney disease, Stage III (moderate) documented in this encounter
--- OUTSIDE RECORDS SUMMARY | 2024-04-11 14:02 | XMS_ITS | Encounter Summary ---
Author Organization [facility] Address [address] [place] [address] Care Team Providers Care Security Checker Name Role Phone Timothy Banks MD Primary Care Provider Reason for Visit * Reason Comments Follow-up 4 mo follow up on li ghtheadedness, RBBB, PVCs Encounter Details Date Type Department Care Team (Latest Contact Info) Description 10/28/2016 8:45 AM CDT Office Visit [facility] [address] [address] [address] [place] [address] Jayro Kaminski MD [facility] [phone] Lightheadedness (Primary Dx); 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); Left ventricular hypertrophy; correction current use of anticoagulant therapy; Cardiac arrhythmia, unspecified cardiac arrhythmia type; RBBB Social History Tobacco Use Types Packs/Day Years Used Date Smoking Tobacco: Never Smokeless Tobacco: Never Alcohol Use Standard Drinks/Week Comments Yes 0 (1 standard drink = 0.6 oz pur e alcohol) Sex and Gender Information Value Date Recorded Sex Assigned at Not on file 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 No bleeding [...] sooner as clinically indicated Jayro Kaminski MD, [facility] documented in this encounter Plan of Treatment Not on file documented as of this encounter Visit Diagnoses Diagnosis Lightheadedness- Primary Dizziness and giddiness 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) Left ventricular hypertrophy Cardiomegaly terminal make up operator current use of anticoagulant therapy Cardiac arrhythmia, unspecified cardiac arrhythmia type RBBB documented in this encounter Care Teams Security Checker Relationship Specialty Start Date End Date Timothy Banks MD PCP - General 07/08/16 documented as of this encounter
--- OUTSIDE RECORDS SUMMARY | 2024-04-11 14:02 | XMS_ITS | Encounter Summary ---
Author Organization [facility] Care Team Providers Care Case Therapist Name Role Phone Unavailable Primary Care Provider Unavailabl e Encounter Details Date Type Department Care Team (Late st Contact Info) Description 08/25/2014 - 08/25/2014 11:59 PM CDT Hospital Encounter 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 [facility] ? Department of Laboratories ? [facility] ? [place] [address] [facility] ? CAM [address] C Patient Name: ? NADEEM AMAYA Med Rec Number: ?? [id number] Date of : ?1945 Gender/Age: ? Male 68 years Doctor: ? Tavares Hannon M.D. Report Date/Time: 08/25/2014 17:17 ?* Abnormal ??C Critical ??f Footnote ??^ Corrected ??L Low ??H High ?i Interp Data ??@ Reference Lab ?Chart Type: Cumulative ?URINALYSIS ?08/25/2014 ?13:32:51 Test ?Units ??Reference Color ? Yellow ? [Yellow] Clarity ? Clear ?[Clear] Specific [place] ??1.012 ?[1.003-1.030] pH ?6.0 ?[5.0-8.0] Albumin ? [...] ORDERABLES Jamila l Result Performing Organization Address City/[facility] Co de Phone Number HISTORICAL RESULTS * [...] ORDERABLES Final Resul t Performing Organization Address [facility] de Phone Number HISTORICAL RESULTS * [...] ORDERABLES Final Resul t Performing Organization Address City/[facility] Co de Phone Number HISTORICAL RESULTS documented in this encounter Visit Diagnoses Diagnosis Chronic kidney disease, stage III (moderate) (HCC) Chronic kidney disease, Stage III (moderate) documented in this encounter
--- OUTSIDE RECORDS SUMMARY | 2024-04-11 14:02 | XMS_ITS | Encounter Summary ---
Author Organization [facility] Facility Care Team Providers Care Food Service Hotel Runner Name Role Phone Unavailable Primary Care Provider Unavailabl e Encounter Details Date Type Department Care Team (Latest Contact Info) Description 10/06/2011 7:25 PM CDT - 10/07/2011 12:00 PM CDT Hospital Encounter [facility] Eugene Pritchett, DO [address] [place] [address] Phlebitis or thrombophlebitis of other deep vessel of lower extremity Social History Tobacco Use Types Packs/Day Years Used Date Smoking Tobacco: Never Assessed Sex and Gender Information Value Date Recorded Sex Assigned at Not on file 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
--- OUTSIDE RECORDS SUMMARY | 2024-04-11 14:02 | XMS_ITS | Encounter Summary ---
Author Organization [facility] Address [address] [place] [address] Care Team Providers Care Guest Relation Officer Name Role Phone Timothy Banks MD Primary Care Provider [phone] Reason for Visit * (Routine) - Closed Specialty Diagnoses / Procedures Referred By Contac t Referred To Contact Diagnoses SVT (supraventricular tachycardia) (HCC) Cardiac arrhythmia, unspecified cardiac arrhythmia type Procedures 48 HR Holter Monitor Jayro Kaminski MD Phone: tel: fax: Referral ID Status Reason Start Date Expiration Date Visits Re quested Visits Authorized [id number] Closed 07/03/2017 12/30/2017 1 1 Encounter Details Date Type Department Care Team (Latest Contact Info) Description 07/03/2017 1:30 PM CDT Ancillary Procedure 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
== END 2024-04-04 08:22 | disposition home or self-care (01) ==
PROVIDERS: PCP Family Medicine; Visit Provider Internal Medicine Hematology & Oncology
DX: C92.00 Acute myeloblastic leukemia, not having achieved remission (principal)
CPT/HCPCS: 36415; 80048; 85025

== ENCOUNTER 2024-04-25 09:26 | Outpatient (CLI) | payer MEDICARE, SELFPAY ==
[2024-04-25 09:39] LABS: Hematocrit 37.1 % (42.0-52.0); Hemoglobin 11.9 g/dL (14.0-18.0); Immature Granulocyte Absolute 0.03 K/mm3 (0.00-0.031); Immature Granulocyte Percent A 2.2 % (0-0.5); Lymphocytes Absolute Auto 0.55 K/mm3 (0.9-3.2); Mean Corpuscular HGB Conc 32.1 g/dl (32-36); Mean Corpuscular Volume 90.3 fl (80-100); Mean Platelet Volume 12.3 fl (7.4-10.4); Monocytes Absolute Auto 0.1 K/mm3 (0.1-0.6); Neutrophils Absolute Auto 0.6 K/mm3 (1.3-6.7); Neutrophils Percent Auto 47.8 % (45.5-73.1); Platelet Count Result 288 k/mm3 (150-375); Red Blood Count 4.11 M/mm3 (4.6-6.20); Red Cell Distribution Width 18.3 % (11.5-14.5)
[2024-04-25 09:43] LABS: White Blood Count 1.3 K/mm3 (4.5-10.0)
[2024-04-25 10:36] LABS: Sodium 142 mmol/L (137-145)
[2024-04-25 10:57] LABS: Anion Gap 8 mmol/L (4-12); Blood Urea Nitrogen 13 mg/dL (9-20); Calcium 9.6 mg/dL (8.4-10.2); Carbon Dioxide 28 mmol/L (22-30); Chloride 106 mmol/L (98-107); Estimated Glomerular Filt Rate > 60; Glucose 118 mg/dL (65-110); Potassium 3.9 mmol/L (3.4-5.0)
== END 2024-04-25 09:27 | disposition home or self-care (01) ==
LOC: ANHLAB 09:28
PROVIDERS: PCP Family Medicine; Visit Provider Internal Medicine Hematology & Oncology
DX: C92.00 Acute myeloblastic leukemia, not having achieved remission (principal)
CPT/HCPCS: 36415; 80048; 85025

== ENCOUNTER 2024-04-29 14:42 | Outpatient (CLI) | payer MEDICARE, SELFPAY ==
[2024-04-29 14:52] LABS: Hemoglobin 11.5 g/dL (14.0-18.0); Immature Granulocyte Absolute 0.03 K/mm3 (0.00-0.031); Immature Granulocyte Percent A 1.6 % (0-0.5); Lymphocytes Percent Auto 31.3 % (18.3-44.2); Mean Corpuscular HGB Conc 31.9 g/dl (32-36); Mean Corpuscular Volume 90.9 fl (80-100); Mean Platelet Volume 11.9 fl (7.4-10.4); Monocytes Absolute Auto 0.2 K/mm3 (0.1-0.6); Monocytes Percent Auto 9.9 % (2.6-8.5); Neutrophils Absolute Auto 1.1 K/mm3 (1.3-6.7); Neutrophils Percent Auto 57.2 % (45.5-73.1); Platelet Count Result 299 k/mm3 (150-375); Red Blood Count 3.96 M/mm3 (4.6-6.20); Red Cell Distribution Width 18.7 % (11.5-14.5)
[2024-04-29 14:54] LABS: White Blood Count 1.9 K/mm3 (4.5-10.0)
[2024-04-29 16:48] LABS: Anion Gap 10 mmol/L (4-12); Blood Urea Nitrogen 14 mg/dL (9-20); Carbon Dioxide 27 mmol/L (22-30); Chloride 103 mmol/L (98-107); Estimated Glomerular Filt Rate 55; Glucose 124 mg/dL (65-110); Sodium 140 mmol/L (137-145)
--- OUTSIDE RECORDS SUMMARY | 2024-05-02 14:11 | XMS_ITS | Clinical Summary ---
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 This disclosure is being madepursuant to the Care Everywhere program and may not contain all information available regarding this patient. Last updated 17.[facility] Allergies Active Allergy Reactions Criticality Noted Date Comments Contrast-Gadolinium Agents For Mri Urticaria Medium 1 05/04/2023 Medications * Be aware that medications may not be up to date on this document. Alwaysverify current medications with the patient. Medication Sig Dispensed Refills Start Date End Date Status lansoprazole (Prevacid) 30 MG capsule Take 1 [...] (one) tablet by mouth once daily Active acetaminophen (Tylenol) 325 MG tablet Take 2 (two) tablets by mouth every 4 hours as needed Maximum allowable Acetaminophen amount = 4 Grams (4000 mg) / 24 hours. 03/23/2024 Active polyethylene glycol 3350 (Miralax) 17 g packet Take 17 (seventeen) g by mouth once daily as needed for Constipation 03/23/2024 Active senna (Senokot Extra Strength) 17.2 MG Take 17.2 mg by mouth once daily as needed for Constipation 03/23/2024 Active Additional Information Patient not taking.Reported on 04/18/2024 ondansetron, disintegrating, (Zofran ODT) 8 MG tabletIndication [...] every 2 days 30 tablet 03/23/2024 Active levoFLOXacin (Levaquin) 500 MG tablet Take 1 (one) tablet by mouth every 24 hours 30 tablet 3 04/18/2024 Active apixaban (Eliquis) 2.5 MG tablet Take 1 (one) tablet by mouth 2 times daily 60 tablet 3 04/18/2024 Active posaconazole (Noxafil) 100 MG tabletIndication s: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) Take 3 (three) tablets by mouth daily with dinner for 90 days 90 tablet 2 04/18/2024 5 Active venetoclax (Venclexta) 100 MG tabletIndication s:Acute Myelocytic Leukemia Take 1 (one) tablet by mouth daily with food Reasons: Acute Myelocytic Leukemia 21 tablet 11 04/18/2024 5 Active valACYclovir (Valtrex) 500 MG tablet Take 1 (one) tablet by mouth 2 times daily 60 tablet 3 04/22/2024 Active allopurinol (Zyloprim) 300 MG tablet Take 1 (one) tablet by mouth once daily after breakfast 30 tablet 04/22/2024 Active venetoclax (Venclexta) 100 MG tabletIndication s:Acute Myelocytic Leukemia Take 1 (one) tablet by mouth daily with food Reasons: Acute Myelocytic Leukemia 28 tablet 11 03/13/2024 4 Discontinue d(Reorder) posaconazole (Noxafil) 100 MG tablet Take 3 (three) tablets by mouth daily with dinner for 90 days 90 tablet 2 03/13/2024 5 Discontinue d(Reorder) valACYclovir (Valtrex) 500 MG tablet Take 1 (one) tablet by mouth 2 times daily 60 tablet 03/23/2024 5 Discontinue d(Reorder) levoFLOXacin (Levaquin) 500 MG tablet Take 1 (one) tablet by mouth every 24 hours 30 tablet 03/23/2024 5 Discontinue d(Reorder) apixaban (Eliquis) 2.5 MG tablet Take 1 (one) tablet by mouth 2 times daily 60 tablet 03/23/2024 5 Discontinue d(Reorder) allopurinol (Zyloprim) 300 MG tablet Take 1 (one) tablet by mouth once daily after breakfast 30 tablet 03/23/2024 5 Discontinue d(Reorder) venetoclax (Venclexta) 100 MG tabletIndication s:Acute Myelocytic Leukemia Take 1 (one) tablet by mouth daily with food Reasons: Acute Myelocytic Leukemia 21 tablet 11 04/05/2024 4 Discontinue d(Reorder) venetoclax (Venclexta) 100 MG tabletIndication s:Acute Myelocytic Leukemia Take 1 (one) tablet by mouth daily with food Reasons: Acute Myelocytic Leukemia 21 tablet 11 04/05/2024 5 Discontinue d(Reorder) valACYclovir (Valtrex) 500 MG tablet Take 1 (one) tablet by mouth 2 times daily 60 tablet 3 04/18/2024 5 Discontinue d(Reorder) Active Problems Problem Noted Date Diagnosed Date Acute myeloid leuk w multilin dysplasia, 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 MDS (myelodysplastic syndrome) 03/13/2024 Encounters Date Type Department Care Team Description 05/01/2024 Orders Only [facility] - Hematology/Oncolog y [address] [place] [phone] Cindy Garcia MD 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) 04/22/2024 12:45 PM NANOSCIENCE TECHNICIAN - 04/22/2024 11:59 PM NANOSCIENCE TECHNICIAN Hospital Encounter [facility] EKG/[facility]OLTER [address] [place] [address] Cindy Garcia MD Discharge Disposition: Home or Self Care 04/22/2024 9:38 AM NANOSCIENCE TECHNICIAN - 04/22/2024 12:44 PM NANOSCIENCE TECHNICIAN Hospital Encounter [facility] [address] [place] [phone] Unknown, Provider Discharge Disposition: Home or Self Care 04/22/2024 Travel 04/22/2024 Refill [facility] - Hematology/Oncolog y [address] [place] [address] Cindy Garcia MD Refill Request 04/22/2024 Orders Only [facility] - Hematology/Oncolog y [address] [place] [phone] Tg Amezcua, RN 04/22/2024 Orders Only [facility] - Hematology/Oncolog y [address] [place] [phone] Tg Amezcua, RN 04/22/2024 Telephone [facility] - Hematology/Oncolog y [address] [place] [phone] Nikole Chou RN Appointment 04/19/2024 9:58 AM NANOSCIENCE TECHNICIAN - 04/19/2024 11:59 PM NANOSCIENCE TECHNICIAN Hospital Encounter [facility] [address] [place] [phone] Unknown, Provider Discharge Disposition: Home or Self Care 04/19/2024 Travel 04/18/2024 10:30 AM NANOSCIENCE TECHNICIAN Office Visit [facility] - Hematology/Oncolog y [address] [place] [phone] Cindy Garcia MD 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) 04/18/2024 9:32 AM NANOSCIENCE TECHNICIAN - 04/18/2024 11:59 PM NANOSCIENCE TECHNICIAN Hospital Encounter [facility] [address] [place] [phone] Unknown, Provider Discharge Disposition: Home or Self Care 04/18/2024 Travel 04/17/2024 10:32 AM NANOSCIENCE TECHNICIAN - 04/17/2024 11:59 PM NANOSCIENCE TECHNICIAN Hospital Encounter [facility] [address] [place] [phone] Timothy Banks MD Discharge Disposition: Home or Self Care 04/16/2024 10:00 AM NANOSCIENCE TECHNICIAN - 04/16/2024 11:59 PM NANOSCIENCE TECHNICIAN Hospital Encounter [facility] [address] [place] [phone] Unknown, Provider Discharge Disposition: Home or Self Care 04/15/2024 Orders Only [facility] [address] [place] [address] Cindy Garcia MD 04/11/2024 5:49 AM NANOSCIENCE TECHNICIAN - 04/11/2024 11:05 AM NANOSCIENCE TECHNICIAN Hospital Encounter [facility] [address] [place] [address] Cindy Garcia MD Interven Radiology Discharge Disposition: Home or Self Care 04/10/2024 Orders Only [facility] [address] [place] [address] Cindy Garcia MD Chronic kidney disease, unspecified CKD stage 04/05/2024 Orders Only [facility] [address] [place] [address] Cindy Garcia MD 04/04/2024 Telephone [facility] - Hematology/Oncolog y [address] [place] [phone] Cindy Garcia MD Medication Prior Auth Request 04/01/2024 3:09 PM NANOSCIENCE TECHNICIAN - 04/01/2024 11:59 PM NANOSCIENCE TECHNICIAN Hospital Encounter [facility] [address] [place] [address], [address] [place] [address] Discharge Disposition: Home or Self Care 04/01/2024 2:00 PM NANOSCIENCE TECHNICIAN Office Visit [facility] - Hematology/Oncolog y [address] [place] [phone] Cindy Garcia MD 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) 04/01/2024 Orders Only [facility] [address] [place] [phone] Cindy Garcia MD Tumor lysis syndrome (HCC) 04/01/2024 Travel 04/01/2024 Orders Only [facility] [address] [place] [phone] Cindy Garcia MD 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) 03/25/2024 Orders Only [facility] [address] [place] [address] Ekta Ferro, SHIP MANAGER-BEVEL OPERATOR 03/25/2024 Orders Only [facility] - Hematology/Oncolog y [address] [place] [phone] Cindy Garcia MD Acute myeloid leuk w multilin dysplasia, 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) 03/25/2024 Telephone Transitional Care at [facility] [address] [place] [phone] Adamaris Jesus, stand in 03/14/2024 Pharmacist Telephone/Documenta tion [facility] [address] [place] [address] Cindy Garcia MD Medication Monitoring (VENCLEXTA 100 MG TABLET/) 03/14/2024 Telephone [facility] - Hematology/Oncolog y [address] [place] [phone] Cindy Garcia MD Medication Prior Auth Request 03/14/2024 Telephone [facility] - Hematology/Oncolog y [address] [place] [phone] Cindy Garcia MD Medication Prior Auth Request 03/14/2024 Telephone [facility] - Hematology/Oncolog y [address] [place] [phone] Cindy Garcia MD Medication Prior Auth Request 03/13/2024 7:14 PM NANOSCIENCE TECHNICIAN - 03/23/2024 1:56 PM NANOSCIENCE TECHNICIAN Hospital Encounter [facility] 7N ACUTE [address] [place] [address] Cindy Garcia MD Kumar, Ashwath, MD Schrader, MD Jodi Edwards, Josh Chavez MD Internal Medicine Discharge Disposition: Home or Self Care 03/13/2024 Travel 03/13/2024 Telephone [facility] [address] [place] [address] Cindy Garcia MD Medication Prior Auth Request 03/13/2024 Orders Only [facility] [address] [place] [address] Sammie Hartman, PharmD 03/13/2024 Orders Only [facility] [address] [place] [address] Cindy Garcia MD 03/04/2024 3:35 PM NANOSCIENCE TECHNICIAN - 03/04/2024 11:59 PM NANOSCIENCE TECHNICIAN Hospital Encounter [facility] [address] [place] [address], [address] [place] [address] Discharge Disposition: Home or Self Care 03/04/2024 2:00 PM NANOSCIENCE TECHNICIAN Office Visit [facility] - Hematology/Oncolog y [address] [place] [phone] Cindy Garcia MD MDS (myelodysplastic syndrome) (HCC) (Primary Dx) 03/04/2024 Travel 03/04/2024 Orders Only [facility] [address] [place] [address] Cindy Garcia MD MDS (myelodysplastic syndrome) (HCC) 03/01/2024 Orders Only [facility] [address] [place] [address] Cindy Garcia MD Neutropenia, unspecified type (HCC) 03/01/2024 Telephone [facility] - Hematology/Oncolog y [address] [place] [phone] Cindy Manfsield MA Appointment (Patient has comfirmed) 02/13/2024 Lab Requisition [facility] - Pathology Lab [address] [place] [phone] Rommel Dinh MD Illness, unspecified 02/12/2024 Lab Requisition [facility] - Pathology Lab [address] [place] [phone] Rommel Dinh MD Decreased white blood cell [...] 03/13/2024 [facility] [place] [facility] Occupat ional [facility] - Occupational Stress [...] in the past 12 m [facility], were you homeless or living in a alf (including now)? No 03/13/2024 Sex and Gender Information Value Date Recorded Sex Assigned at Male 03/05/2024 8:04 AM NANOSCIENCE TECHNICIAN Gender Identity Male 03/05/2024 8:04 AM NANOSCIENCE TECHNICIAN Sexual Orientation Straight 03/05/2024 8: 04 AM NANOSCIENCE TECHNICIAN Last Filed Vital Signs Vital Sign Reading Time Taken Comments Blood Pressure 126/81 04/22/2024 9:47 AM NANOSCIENCE TECHNICIAN Pulse 61 04/22/2024 9:47 AM NANOSCIENCE TECHNICIAN Temperature 36.2 ??C (97.2 ??F) 04/22/2024 9:47 AM CS T Respiratory Rate 20 04/19/2024 10:07 AM NANOSCIENCE TECHNICIAN Oxygen Saturation 100% 04/22/2024 9:47 AM NANOSCIENCE TECHNICIAN Inhaled Oxygen Concentration - - Weight 99 kg (218 lb 3.2 oz) 04/22/2024 9:47 AM NANOSCIENCE TECHNICIAN Height 182.9 cm (6') 04/22/2024 9:47 AM NANOSCIENCE TECHNICIAN Body Mass Index 29.59 04/22/2024 9:47 AM NANOSCIENCE TECHNICIAN Plan of Treatment Upcoming Encounters Date Type Department Care Team (Late st Contact Info) Description 05/13/2024 10:30 AM NANOSCIENCE TECHNICIAN Appointment [facility] [address] [place] [phone] 05/14/2024 9:00 AM NANOSCIENCE TECHNICIAN Appointment [facility] [address] [place] [address] 05/15/2024 10:00 AM NANOSCIENCE TECHNICIAN Appointment [facility] [address] [place] [phone] 05/15/2024 1:30 PM NANOSCIENCE TECHNICIAN Appointment [facility] [address] [place] [phone] Cindy Garcia MD [address] [place] [address] 05/16/2024 9:00 AM NANOSCIENCE TECHNICIAN Appointment [facility] [address] [place] [address] 05/17/2024 9:00 AM NANOSCIENCE TECHNICIAN Appointment [facility] [address] [place] [address] Health Maintenance Due Date Last Done Comments DTAP/TDAP/TD VACCINES (1 - Tdap) 11/04/1964 PNEUMOCOCCAL VACCINE 50+ (1 of 2 - PCV) 11/04/1963 ZOSTER VACCINE (1 of 2) 11/04/1963 Respiratory Syncytial Virus (RSV) Vaccine Pt: or over 60 yrs (1 - 1-dose 75+ series) 11/04/2019 COVID-19 VACCINE (4 - season) 2023 04/14/2021, 06/25/2020, 06/02/2020 DEPRESSION [...] patient's age to complete this topic MENINGOCOCCAL (Group B) VACCINE Aged Out No longer eligible based on patient's age to complete this topic MENINGOCOCCAL VACCINE Aged Out No gino gerardo eligible based on patient's age to complete this topic Medical Devices Implanted Type Area Dental Office Assistant Device Identifier Shelf Expiration Date Model / Serial / Lot Port Implinfn Powerport Clrvu Argd Kandy Implanted:Qty : 1 on 04/11/2024 by Davian Marshall MD at [facility] Catheters Right: Chest Wall [employer] [id number] 02/07/2025 [id number] / / [id number] Procedures Procedure Name Priority Date/Time Associated Diagnosis Comments EKG 12-LEAD Routine 04/22/2024 1:27 PM NANOSCIENCE TECHNICIAN 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) DIFFERENTIAL MANUAL Routine 04/22/2024 1 0:11 AM NANOSCIENCE TECHNICIAN Acute myeloid leuk w multilin dysplasia, 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) COMPREHENSIVE METABOLIC PANEL Routine 04/22/2024 10:11 AM NANOSCIENCE TECHNICIAN Acute myeloid leuk w multilin dysplasia, 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) CBC W AUTO DIFFERENTIAL Routine 04/22/19 10:11 AM NANOSCIENCE TECHNICIAN Acute myeloid leuk w multilin dysplasia, 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) COMPREHENSIVE METABOLIC PANEL Routine 04/18/2024 9:48 AM NANOSCIENCE TECHNICIAN Acute myeloid leuk w multilin dysplasia, 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) CBC W AUTO DIFFERENTIAL Routine 04/18/19 9:48 AM NANOSCIENCE TECHNICIAN Acute myeloid leuk w multilin dysplasia, 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) QUANTIFERON-TB GOLD PLUS 4-TUBE Routine 04/16/2024 1:43 PM NANOSCIENCE TECHNICIAN LDH BLOOD Routine 04/16/2024 10:26 AM NANOSCIENCE TECHNICIAN Tumor lysis syndrome (HCC) COMPREHENSIVE METABOLIC PANEL Routine 04/16/2024 10:26 AM NANOSCIENCE TECHNICIAN Acute myeloid leuk w multilin dysplasia, 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) CBC W AUTO DIFFERENTIAL Routine 04/16/19 10:26 AM NANOSCIENCE TECHNICIAN Acute myeloid leuk w multilin dysplasia, 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) COMPREHENSIVE METABOLIC PANEL Routine 04/11/2024 10:54 AM NANOSCIENCE TECHNICIAN Acute myeloid leuk w multilin dysplasia, 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) CBC W AUTO DIFFERENTIAL Routine 04/11/19 10:54 AM NANOSCIENCE TECHNICIAN Acute myeloid leuk w multilin dysplasia, 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) IR TIM CATH INSERT Routine 04/11/2024 9:45 AM NANOSCIENCE TECHNICIAN 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) PT-INR [facility] STAT 04/11/2024 7:20 AM NANOSCIENCE TECHNICIAN 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) MDS (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, 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) PHOSPHORUS BLOOD Routine 04/01/2024 3:12 PM NANOSCIENCE TECHNICIAN Tumor lysis syndrome (HCC) URIC ACID BLOOD Routine 04/01/2024 3:12 PM NANOSCIENCE TECHNICIAN Tumor lysis syndrome (HCC) DIFFERENTIAL MANUAL Routine 04/01/2024 3 :12 PM NANOSCIENCE TECHNICIAN 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) MAGNESIUM BLOOD Routine 04/01/2024 3:12 PM NANOSCIENCE TECHNICIAN 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) ERYTHROPOIETIN Routine 04/01/2024 3:12 PM NANOSCIENCE TECHNICIAN 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) SOLUBLE TRANSFERRIN RECEPTOR Routine 04/01/2024 3:12 PM NANOSCIENCE TECHNICIAN 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) COMPREHENSIVE METABOLIC PANEL Routine 04/01/2024 3:12 PM NANOSCIENCE TECHNICIAN 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) CBC W AUTO DIFFERENTIAL Routine 04/01/20 3:12 PM NANOSCIENCE TECHNICIAN 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) LAB RESULTS ORDER 03/25/2024 DIFFERENTIAL MANUAL AM Draw 03/23/2024 1 2:25 AM NANOSCIENCE TECHNICIAN MAGNESIUM BLOOD Routine 03/23/2024 12:25 AM NANOSCIENCE TECHNICIAN URIC ACID BLOOD Routine 03/23/2024 12:25 AM NANOSCIENCE TECHNICIAN PHOSPHORUS BLOOD Routine 03/23/2024 12:2 5 AM NANOSCIENCE TECHNICIAN COMPREHENSIVE METABOLIC PANEL Routine 03/23/2024 12:25 AM NANOSCIENCE TECHNICIAN LDH BLOOD Routine 03/23/2024 12:25 AM NANOSCIENCE TECHNICIAN PTT [facility] AM Draw 03/23/2024 12:25 AM NANOSCIENCE TECHNICIAN PT-INR [facility] AM Draw 03/23/2024 12:25 AM NANOSCIENCE TECHNICIAN CBC W AUTO DIFFERENTIAL AM Draw 03/23/20 12:25 AM NANOSCIENCE TECHNICIAN MAGNESIUM BLOOD Routine 03/22/2024 6:20 PM NANOSCIENCE TECHNICIAN URIC ACID BLOOD Routine 03/22/2024 6:20 PM NANOSCIENCE TECHNICIAN PHOSPHORUS BLOOD Routine 03/22/2024 6:20 PM NANOSCIENCE TECHNICIAN COMPREHENSIVE METABOLIC PANEL Routine 03/22/2024 6:20 PM NANOSCIENCE TECHNICIAN LDH BLOOD Routine 03/22/2024 6:20 PM NANOSCIENCE TECHNICIAN DIFFERENTIAL MANUAL AM Draw 03/22/2024 6 :58 AM NANOSCIENCE TECHNICIAN MAGNESIUM BLOOD Routine 03/22/2024 6:58 AM NANOSCIENCE TECHNICIAN URIC ACID BLOOD Routine 03/22/2024 6:58 AM NANOSCIENCE TECHNICIAN PHOSPHORUS BLOOD Routine 03/22/2024 6:58 AM NANOSCIENCE TECHNICIAN COMPREHENSIVE METABOLIC PANEL Routine 03/22/2024 6:58 AM NANOSCIENCE TECHNICIAN LDH BLOOD Routine 03/22/2024 6:58 AM NANOSCIENCE TECHNICIAN PTT [facility] AM Draw 03/22/2024 6:58 AM NANOSCIENCE TECHNICIAN PT-INR [facility] AM Draw 03/22/2024 6:58 AM NANOSCIENCE TECHNICIAN CBC W AUTO DIFFERENTIAL AM Draw 03/22/20 6:58 AM NANOSCIENCE TECHNICIAN MAGNESIUM BLOOD Routine 03/21/2024 3:47 AM NANOSCIENCE TECHNICIAN URIC ACID BLOOD Routine 03/21/2024 3:47 AM NANOSCIENCE TECHNICIAN PHOSPHORUS BLOOD Routine 03/21/2024 3:47 AM NANOSCIENCE TECHNICIAN COMPREHENSIVE METABOLIC PANEL Routine 03/21/2024 3:47 AM NANOSCIENCE TECHNICIAN LDH BLOOD Routine 03/21/2024 3:47 AM NANOSCIENCE TECHNICIAN PTT [facility] AM Draw 03/21/2024 3:47 AM NANOSCIENCE TECHNICIAN PT-INR [facility] AM Draw 03/21/2024 3:47 AM NANOSCIENCE TECHNICIAN CBC W AUTO DIFFERENTIAL AM Draw 03/21/20 3:47 AM NANOSCIENCE TECHNICIAN MAGNESIUM BLOOD Routine 03/20/2024 4:07 PM NANOSCIENCE TECHNICIAN URIC ACID BLOOD Routine 03/20/2024 4:07 PM NANOSCIENCE TECHNICIAN PHOSPHORUS BLOOD Routine 03/20/2024 4:07 PM NANOSCIENCE TECHNICIAN COMPREHENSIVE METABOLIC PANEL Routine 03/20/2024 4:07 PM NANOSCIENCE TECHNICIAN LDH BLOOD Routine 03/20/2024 4:07 PM NANOSCIENCE TECHNICIAN DIFFERENTIAL MANUAL AM Draw 03/20/2024 6 :28 AM NANOSCIENCE TECHNICIAN LDH BLOOD Routine 03/20/2024 6:28 AM NANOSCIENCE TECHNICIAN PTT [facility] AM Draw 03/20/2024 6:28 AM NANOSCIENCE TECHNICIAN PT-INR [facility] AM Draw 03/20/2024 6:28 AM NANOSCIENCE TECHNICIAN URIC ACID BLOOD Routine 03/20/2024 6:28 AM NANOSCIENCE TECHNICIAN PHOSPHORUS BLOOD Routine 03/20/2024 6:28 AM NANOSCIENCE TECHNICIAN MAGNESIUM BLOOD Routine 03/20/2024 6:28 AM NANOSCIENCE TECHNICIAN COMPREHENSIVE METABOLIC PANEL AM Draw 03/20/2024 6:28 AM NANOSCIENCE TECHNICIAN CBC W AUTO DIFFERENTIAL AM Draw 03/20/20 24 6:28 AM NANOSCIENCE TECHNICIAN DIFFERENTIAL MANUAL AM Draw 03/19/2024 6 :23 AM NANOSCIENCE TECHNICIAN LDH BLOOD Routine 03/19/2024 6:23 AM NANOSCIENCE TECHNICIAN PTT [facility] AM Draw 03/19/2024 6:23 AM NANOSCIENCE TECHNICIAN PT-INR [facility] AM Draw 03/19/2024 6:23 AM NANOSCIENCE TECHNICIAN URIC ACID BLOOD Routine 03/19/2024 6:23 AM NANOSCIENCE TECHNICIAN PHOSPHORUS BLOOD Routine 03/19/2024 6:23 AM NANOSCIENCE TECHNICIAN MAGNESIUM BLOOD Routine 03/19/2024 6:23 AM NANOSCIENCE TECHNICIAN COMPREHENSIVE METABOLIC PANEL AM Draw 03/19/2024 6:23 AM NANOSCIENCE TECHNICIAN CBC W AUTO DIFFERENTIAL AM Draw 03/19/20 24 6:23 AM NANOSCIENCE TECHNICIAN EKG 12-LEAD Routine 03/18/2024 1:48 PM NANOSCIENCE TECHNICIAN Inverted T wave PATHOLOGY PERIPHERAL SMEAR REVIEW AM Draw 03/18/2024 8:33 AM NANOSCIENCE TECHNICIAN DIFFERENTIAL MANUAL AM Draw 03/18/2024 8 :33 AM NANOSCIENCE TECHNICIAN LDH BLOOD Routine 03/18/2024 8:33 AM NANOSCIENCE TECHNICIAN PTT [facility] AM Draw 03/18/2024 8:33 AM NANOSCIENCE TECHNICIAN PT-INR [facility] AM Draw 03/18/2024 8:33 AM NANOSCIENCE TECHNICIAN URIC ACID BLOOD Routine 03/18/2024 8:33 AM NANOSCIENCE TECHNICIAN PHOSPHORUS BLOOD Routine 03/18/2024 8:33 AM NANOSCIENCE TECHNICIAN MAGNESIUM BLOOD Routine 03/18/2024 8:33 AM NANOSCIENCE TECHNICIAN COMPREHENSIVE METABOLIC PANEL AM Draw 03/18/2024 8:33 AM NANOSCIENCE TECHNICIAN CBC W AUTO DIFFERENTIAL AM Draw 03/18/20 24 8:33 AM NANOSCIENCE TECHNICIAN DIFFERENTIAL MANUAL AM Draw 03/17/2024 5 :28 AM NANOSCIENCE TECHNICIAN LDH BLOOD Routine 03/17/2024 5:28 AM NANOSCIENCE TECHNICIAN PTT [facility] AM Draw 03/17/2024 5:28 AM NANOSCIENCE TECHNICIAN PT-INR [facility] AM Draw 03/17/2024 5:28 AM NANOSCIENCE TECHNICIAN URIC ACID BLOOD Routine 03/17/2024 5:28 AM NANOSCIENCE TECHNICIAN PHOSPHORUS BLOOD Routine 03/17/2024 5:28 AM NANOSCIENCE TECHNICIAN MAGNESIUM BLOOD Routine 03/17/2024 5:28 AM NANOSCIENCE TECHNICIAN COMPREHENSIVE METABOLIC PANEL AM Draw 03/17/2024 5:28 AM NANOSCIENCE TECHNICIAN CBC W AUTO DIFFERENTIAL AM Draw 03/17/20 24 5:28 AM NANOSCIENCE TECHNICIAN DIFFERENTIAL MANUAL AM Draw 03/16/2024 1 2:04 AM NANOSCIENCE TECHNICIAN LDH BLOOD Routine 03/16/2024 12:04 AM NANOSCIENCE TECHNICIAN PTT [facility] AM Draw 03/16/2024 12:04 AM NANOSCIENCE TECHNICIAN PT-INR [facility] AM Draw 03/16/2024 12:04 AM NANOSCIENCE TECHNICIAN URIC ACID BLOOD Routine 03/16/2024 12:04 AM NANOSCIENCE TECHNICIAN PHOSPHORUS BLOOD Routine 03/16/2024 12:0 4 AM NANOSCIENCE TECHNICIAN MAGNESIUM BLOOD Routine 03/16/2024 12:04 AM NANOSCIENCE TECHNICIAN COMPREHENSIVE METABOLIC PANEL AM Draw 03/16/2024 12:04 AM NANOSCIENCE TECHNICIAN CBC W AUTO DIFFERENTIAL AM Draw 03/16/20 12:04 AM NANOSCIENCE TECHNICIAN ECHO COMPLETE W CONTRAST Routine 03/15/2024 1:47 PM NANOSCIENCE TECHNICIAN MDS (myelodysplastic syndrome) (HCC) MYELOID MALIGNANCIES MUTATION PNL Routine 03/15/2024 9:05 AM NANOSCIENCE TECHNICIAN MDS (myelodysplastic syndrome) (HCC) FISH MDS PANEL BLOOD OR BONE MARROW Routine 03/15/2024 9:05 AM NANOSCIENCE TECHNICIAN MDS (myelodysplastic syndrome) (HCC) FISH AML PANEL BLOOD OR BM RFLX PML/DANTE Routine 03/15/2024 9:05 AM NANOSCIENCE TECHNICIAN MDS (myelodysplastic syndrome) (HCC) FLOW CYTOMETRY BONE MARROW Routine 03/15/2024 9:05 AM NANOSCIENCE TECHNICIAN MDS (myelodysplastic syndrome) (HCC) BONE MARROW BIOPSY (STL) Routine 03/15/2024 9:05 AM NANOSCIENCE TECHNICIAN MDS (myelodysplastic syndrome) (HCC) FISH PML/DANTE PANEL Routine 03/15/2024 9 :05 AM NANOSCIENCE TECHNICIAN MDS (myelodysplastic syndrome) (HCC) CHROMOSOME ANALYSIS BONE MARROW PANEL Routine 03/15/2024 9:05 AM NANOSCIENCE TECHNICIAN MDS (myelodysplastic syndrome) (HCC) LAB MISC TEST (NOT BLOOD) Routine 03/15/2024 9:05 AM NANOSCIENCE TECHNICIAN LAB MISC TEST (NOT BLOOD) Routine 03/15/2024 9:05 AM NANOSCIENCE TECHNICIAN LAB MISC TEST (NOT BLOOD) Routine 03/15/2024 9:05 AM NANOSCIENCE TECHNICIAN DIFFERENTIAL MANUAL AM Draw 03/15/2024 7 :53 AM NANOSCIENCE TECHNICIAN LDH BLOOD Routine 03/15/2024 7:53 AM NANOSCIENCE TECHNICIAN PTT SLH AM Draw 03/15/2024 7:53 AM NANOSCIENCE TECHNICIAN PT-INR [facility] AM Draw 03/15/2024 7:53 AM NANOSCIENCE TECHNICIAN URIC ACID BLOOD Routine 03/15/2024 7:53 AM NANOSCIENCE TECHNICIAN PHOSPHORUS BLOOD Routine 03/15/2024 7:53 AM NANOSCIENCE TECHNICIAN MAGNESIUM BLOOD Routine 03/15/2024 7:53 AM NANOSCIENCE TECHNICIAN COMPREHENSIVE METABOLIC PANEL AM Draw 03/15/2024 7:53 AM NANOSCIENCE TECHNICIAN CBC W AUTO DIFFERENTIAL AM Draw 03/15/20 7:53 AM NANOSCIENCE TECHNICIAN EKG 12-LEAD STAT 03/14/2024 12:30 PM NANOSCIENCE TECHNICIAN MDS (myelodysplastic syndrome) (HCC) FLOW CYTOMETRY BLOOD PROFILE Routine 03/14/2024 10:32 AM NANOSCIENCE TECHNICIAN MDS (myelodysplastic syndrome) (HCC) DIFFERENTIAL MANUAL STAT 03/13/2024 1 1:26 PM NANOSCIENCE TECHNICIAN LDH BLOOD Routine 03/13/2024 11:26 PM NANOSCIENCE TECHNICIAN PTT SLH Routine 03/13/2024 11:26 PM NANOSCIENCE TECHNICIAN PT-INR SLH Routine 03/13/2024 11:26 PM NANOSCIENCE TECHNICIAN FIBRINOGEN ACTIVITY Routine 03/13/2024 1 1:26 PM NANOSCIENCE TECHNICIAN D-DIMER Routine 03/13/2024 11:26 PM NANOSCIENCE TECHNICIAN URIC ACID BLOOD Routine 03/13/2024 11:26 PM NANOSCIENCE TECHNICIAN PHOSPHORUS BLOOD Routine 03/13/2024 11:2 6 PM NANOSCIENCE TECHNICIAN MAGNESIUM BLOOD Routine 03/13/2024 11:26 PM NANOSCIENCE TECHNICIAN COMPREHENSIVE METABOLIC PANEL STAT 03/13/2024 11:26 PM NANOSCIENCE TECHNICIAN CBC W AUTO DIFFERENTIAL STAT 03/13/20 11:26 PM NANOSCIENCE TECHNICIAN QUINN-TOVAR VIRUS QUANT BLOOD STL Routine 03/13/2024 11:26 PM NANOSCIENCE TECHNICIAN CYTOMEGALOVIRUS (CMV) QUANTITATIVE PLASMA Routine 03/13/2024 11:26 PM NANOSCIENCE TECHNICIAN CHROMOSOME ANALYSIS LEUKEMIA BLD Routine 03/04/2024 4:13 PM NANOSCIENCE TECHNICIAN MDS (myelodysplastic syndrome) (HCC) FISH PML/DANTE PANEL Routine 03/04/2024 4 :13 PM NANOSCIENCE TECHNICIAN MDS (myelodysplastic syndrome) (HCC) FISH AML PANEL BLOOD OR BM RFLX PML/DANTE Routine 03/04/2024 4:13 PM NANOSCIENCE TECHNICIAN MDS (myelodysplastic syndrome) (HCC) FISH AML+MDS PANEL BLOOD OR BONE MARROW Routine 03/04/2024 4:13 PM NANOSCIENCE TECHNICIAN MDS (myelodysplastic syndrome) (HCC) MYELOID MALIGNANCIES MUTATION PNL STAT 03/04/2024 4:13 PM NANOSCIENCE TECHNICIAN MDS (myelodysplastic syndrome) (HCC) HLA TYPING LOW/HIGH RESOLUTION DPB1 Routine 03/04/2024 4:13 PM NANOSCIENCE TECHNICIAN MDS (myelodysplastic syndrome) (HCC) HLA TYPING DNA HIGH RESOLUTION DR Routine 03/04/2024 4:13 PM NANOSCIENCE TECHNICIAN MDS (myelodysplastic syndrome) (HCC) HLA TYPING DNA HIGH RESOLUTION B Routine 03/04/2024 4:13 PM NANOSCIENCE TECHNICIAN MDS (myelodysplastic syndrome) (HCC) HLA TYPING DNA HIGH RESOLUTION C Routine 03/04/2024 4:13 PM NANOSCIENCE TECHNICIAN MDS (myelodysplastic syndrome) (HCC) HLA TYPING DNA HIGH RESOLUTION DQ Routine 03/04/2024 4:13 PM NANOSCIENCE TECHNICIAN MDS (myelodysplastic syndrome) (HCC) HLA TYPING DNA HIGH RESOLUTION A Routine 03/04/2024 4:13 PM NANOSCIENCE TECHNICIAN MDS (myelodysplastic syndrome) (HCC) HLA TYPING DNA LOW RESOLUTION DR,DQ Routine 03/04/2024 4:13 PM NANOSCIENCE TECHNICIAN MDS (myelodysplastic syndrome) (HCC) HLA TYPING DNA LOW RESOLUTION A,B,C Routine 03/04/2024 4:13 PM NANOSCIENCE TECHNICIAN MDS (myelodysplastic syndrome) (HCC) HLA TYPING DNA HIGH RES Routine 03/04/20 4:13 PM NANOSCIENCE TECHNICIAN MDS (myelodysplastic syndrome) (HCC) DIFFERENTIAL MANUAL Routine 03/04/2024 4 :13 PM NANOSCIENCE TECHNICIAN Neutropenia, unspecified type (HCC) BCR-ABL1 CML+AML PCR QUANT PNL Routine 03/04/2024 4:13 PM NANOSCIENCE TECHNICIAN MDS (myelodysplastic syndrome) (HCC) CYTOMEGALOVIRUS ANTIBODY IGG BLOOD Routine 03/04/2024 4:13 PM NANOSCIENCE TECHNICIAN MDS (myelodysplastic syndrome) (HCC) HEPATITIS C ANTIBODY Routine 03/04/2024 4:13 PM NANOSCIENCE TECHNICIAN Neutropenia, unspecified type (HCC) HEPATITIS B SURFACE ANTIBODY Routine 03/04/2024 4:13 PM NANOSCIENCE TECHNICIAN Neutropenia, unspecified type (HCC) HIV-1 HIV-2 ANTIBODY + HIV P24 AG PANEL Routine 03/04/2024 4:13 PM NANOSCIENCE TECHNICIAN Neutropenia, unspecified type (HCC) ERYTHROCYTE SEDIMENTATION RATE Routine 03/04/2024 4:13 PM NANOSCIENCE TECHNICIAN Neutropenia, unspecified type (HCC) C-REACTIVE PROTEIN Routine 03/04/2024 4: 13 PM NANOSCIENCE TECHNICIAN Neutropenia, unspecified type (HCC) RHEUMATOID FACTOR BLOOD QUANTITATIVE Routine 03/04/2024 4:13 PM NANOSCIENCE TECHNICIAN Neutropenia, unspecified type (HCC) MARLINE BLOOD SCREEN W/REFLEX TITER Routine 03/04/2024 4:13 PM NANOSCIENCE TECHNICIAN Neutropenia, unspecified type (HCC) FERRITIN Routine 03/04/2024 4:13 PM NANOSCIENCE TECHNICIAN Neutropenia, unspecified type (HCC) IRON + TRANSFERRIN PANEL Routine 03/04/2024 4:13 PM NANOSCIENCE TECHNICIAN Neutropenia, unspecified type (HCC) TSH REFLEX FREE T4 Routine 03/04/2024 4: 13 PM NANOSCIENCE TECHNICIAN Neutropenia, unspecified type (HCC) ZINC BLOOD Routine 03/04/2024 4:13 PM NANOSCIENCE TECHNICIAN Neutropenia, unspecified type (HCC) COPPER BLOOD Routine 03/04/2024 4:13 PM NANOSCIENCE TECHNICIAN Neutropenia, unspecified type (HCC) FOLATE Routine 03/04/2024 4:13 PM NANOSCIENCE TECHNICIAN Neutropenia, unspecified type (HCC) VITAMIN B12 Routine 03/04/2024 4:13 PM NANOSCIENCE TECHNICIAN Neutropenia, unspecified type (HCC) COMPREHENSIVE METABOLIC PANEL Routine 03/04/2024 4:13 PM NANOSCIENCE TECHNICIAN Neutropenia, unspecified type (HCC) CBC W AUTO DIFFERENTIAL Routine 03/04/20 4:13 PM NANOSCIENCE TECHNICIAN Neutropenia, unspecified type (HCC) HEPATITIS B CORE ANTIBODY TOTAL Routine 03/04/2024 4:13 PM NANOSCIENCE TECHNICIAN Neutropenia, unspecified type (HCC) BONE MARROW BIOPSY (STL) Routine 02/12/2024 9:20 AM NANOSCIENCE TECHNICIAN Illness, unspecified FLOW CYTOMETRY BONE MARROW Routine 02/12/2024 9:20 AM NANOSCIENCE TECHNICIAN Decreased white blood cell count, unspecified from Last 3 Months Results * EKG 12-LEAD - HOSPITAL PERFORMED (04/22/2024 1:27 PM NANOSCIENCE TECHNICIAN) Only the most recent of3 resultswithin the time period is included. Ventricular Rate 61 BPM [facility] MUSE Atrial Rate 61 BPM [facility] MUSE P-R Interval 112 ms [facility] MUSE QRS Duration ms 126 ms [facility] MUSE Q-T Interval ms 476 ms [facility] MUSE QTC Calculation (Bezet) 479 ms [facility] MUSE Calculated P Stevenson 84 degrees [facility] MUSE Calculated R Stevenson 36 degrees [facility] MUSE Calculated T Stevenson -163 degrees [facility] MUSE Interpretation EKG NORMAL SINUS RHYTHM NON-SPECIFIC INTRA-VENTRICULA R CONDUCTION BLOCK T WAVE ABNORMALITY, CONSIDER INFERIOR ISCHEMIA T WAVE ABNORMALITY, CONSIDER ANTEROLATERAL ISCHEMIA ABNORMAL ECG WHEN COMPARED WITH ECG OF 18-MAR-2024 13:48, NO SIGNIFICANT CHANGE WAS FOUND Confirmed by CAPRICE ??HANSEL MARTINEZ ([id number]) on 04/23/2024 8:31:57 AM [facility] MUSE 04/22/2024 1:27 PM NANOSCIENCE TECHNICIAN 04/23/2024 8:31 AM [facility] Cindy Garcia MD ECG ORDERABLES [facility] MUSE * (ABNORMAL) DIFFERENTIAL MANUAL (04/22/2024 10:11 AM NANOSCIENCE TECHNICIAN) Only the most recent of12 resultswithin the time period is included. Neutrophil % 37(L) 41 - 74 % 04/22/2024 11:21 AM [facility] Lymphocyte % 39 17 - 47 % 04/22/2024 11:21 AM [facility] Monocyte % 22(H) 3 - 11 % 04/22/2024 11:21 AM [facility] Eosinophil % 1 0 - 7 % 04/22/2024 11:21 AM [facility] Metamyelocyte % 1(H) 0% % 11:21 AM [facility] Neutrophil Absolute 0.22(L) 1.60 - 7.50 x10E9/L 04/22/2024 11:21 AM [facility] Lymphocyte Absolute 0.23(L) 1.00 - 4.40 x10E9/L 04/22/2024 11:21 AM [facility] Monocyte Absolute 0.13(L) 0.15 - 1.00 x10E9/L 04/22/2024 11:21 AM [facility] Eosinophil Absolute 0.01 0.00 - 0.60 x10E9/L 04/22/2024 11:21 AM [facility] RBC Morphology REVIEWED 04/22/2024 11:21 AM [facility] Schistocytes MODERATE(A) (none) 04/22/2024 11:21 AM [facility] Large Platelets PRESENT(A) (none) 11:21 AM [facility] Blood BLOOD SPECIMEN / Unknown Venipuncture / Unknown 04/22/2024 10:11 AM NANOSCIENCE TECHNICIAN 04/22/2024 10:33 AM [facility] Cindy Garcia MD LAB - HEMATOLOGY ORD ERABLES Performing Organization Address City/State/[facility] Co de Phone Number [address] [address], [facility] [phone] * (ABNORMAL) CBC WITH DIFFERENTIAL (04/22/2024 10:11 AM [facility]) Only the most recent of16 resultswithin the time period is included. WBC 0.6(LL) 4.0 - 10.7 x10E9/L 04/22/2024 11:21 AM [facility] RBC Count 3.69(L) 4.30 - 5.80 x10E12/L 04/22/2024 11:21 AM [facility] Hemoglobin 10.3(L) 13.3 - 17.5 g/dL 04/22/2024 11:21 AM [facility] Hematocrit 31.8(L) 38.7 - 51.1 % 04/22/2024 11:21 AM [facility] MCV 86.2 80.0 - 98.0 fL 04/22/2024 11:21 AM [facility] MCH 27.9 26.7 - 33.6 pg 04/22/2024 11:21 AM [facility] MCHC 32.4 31.7 - 36.3 g/dL 04/22/2024 11:21 AM [facility] RDW-CV 17.9(H) 11.3 - 14.8 % 04/22/2024 11:21 AM [facility] Platelet Count 212 150 - 420 x10E9/L 04/22/2024 11:21 AM [facility] MPV 12.4(H) 7.8 - 11.4 fL 04/22/2024 11:21 AM [facility] Preliminary Absolute Neutrophil 0.17(L) 1.60 - 7.50 x10E9/L 04/22/2024 11:21 AM [facility] Blood BLOOD SPECIMEN / Unknown Venipuncture / Unknown 04/22/2024 10:11 AM [facility] 04/22/2024 10:33 AM [facility] Cindy Garcia MD LAB - HEMATOLOGY ORD ERABLES [facility] [address] [place] [phone], [facility] [phone] * (ABNORMAL) COMPREHENSIVE METABOLIC PANEL (04/22/2024 10:11 AM [facility]) Only the most recent of18 resultswithin the time period is included. BUN 11 7 - 26 mg/dL 04/22/2024 10:58 AM [facility] Creatinine 1.08 0.71 - 1.16 mg/dL 04/22/2024 10:58 AM [facility] Sodium 140 136 - 145 mmol/L 04/22/2024 10:58 AM [facility] Potassium 3.5 3.5 - 4.5 mmol/L 04/22/2024 10:58 AM [facility] Chloride 109(H) 98 - 107 mmol/L 04/22/2024 10:58 AM [facility] CO2 23 22 - 29 mmol/L 04/22/2024 10:58 AM [facility] Glucose 90 70 - 99 mg/dL 04/22/2024 10:58 AM [facility] Calcium 8.7 8.4 - 10.2 mg/dL 04/22/2024 10:58 AM [facility] Protein Total 6.1 6.0 - 8.3 g/dL 04/22/2024 10:58 AM [facility] Albumin 3.4 3.4 - 5.0 g/dL 04/22/2024 10:58 AM [facility] Bilirubin Total 1.1 0.2 - 1.2 mg/dL 04/22/2024 10:58 AM [facility] Alkaline Phosphatase 136 40 - 150 U/L 04/22/2024 10:58 AM [facility] ALT 21 5 - 55 U/L 04/22/2024 10:58 AM [facility] AST 17 5 - 34 U/L 04/22/2024 10:58 AM [facility] Anion Gap 8 6 - 16 04/22/2024 10:58 AM [facility] BUN/Creatinine Ratio 10 7 - 23 04/22/2024 10:58 AM [facility] Osmolality Calculated 289 275 - 295 mOsm/kg 04/22/2024 10:58 AM [facility] Albumin/Globulin Ratio 1.3 1.1 - 2.3 04/22/2024 10:58 AM [facility] eGFR by CKD-EPI 70(L) >=90 mL/min/1.7 3 m2 04/22/2024 10:58 AM [facility] Blood BLOOD SPECIMEN / Unknown Venipuncture / Unknown 04/22/2024 10:11 AM NANOSCIENCE TECHNICIAN 04/22/2024 10:31 AM [facility] Cindy Garcia MD LAB - CHEMISTRY CHELI MONREAL [facility] Organization Address City/State/ZIP Co de Phone Number [facility] [address] [place] [address], [facility] [phone] * QUANTIFERON-TB GOLD PLUS 4-TUBE (04/16/2024 1:43 PM [facility]) Pathologist [facility] QuantiFERON Mitogen Minus NIL 9.09 IU/mL 04/18/2024 11:11 PM NANOSCIENCE TECHNICIAN [employer] [facility] ([facility]) QuantiFERON Nil Value 0.04 IU/mL 04/18/2024 11:11 PM NANOSCIENCE TECHNICIAN [facility] ([facility]) QuantiFERON Plus TB1 Minus NIL 0.00 <=0.34 IU/mL 04/18/2024 11:11 PM NANOSCIENCE TECHNICIAN [facility] ([facility]) QuantiFERON Plus TB2 Minus NIL 0.00 <=0.34 IU/mL 04/18/2024 11:11 PM NANOSCIENCE TECHNICIAN [employer] [facility] ([facility]) QuantiFERON-TB Gold Plus Negative Negative 04/18/2024 11:11 PM NANOSCIENCE TECHNICIAN [employer] [facility] ([facility]) Comment: INTERPRETIVE INFORMATION:Quantiferon TB Gold Plus Interferon gamma release is measured for specimens from each of the four collection tubes. A qualitative result (Negative, Positive, or Indeterminate) is based on interpretation of the four values: NIL, MITOGEN minus NIL (MITOGEN-NIL), TB1 minus NIL (TB1-NIL), and TB2 minus NIL (TB2-NIL). The NIL value represents nonspecific reactivity produced by the patient specimen. The MITOGEN-NIL value serves as the positive control for the patient specimen, demonstrating successful lymphocyte activity. The TB1-NIL tube specifically detects CD4+ lymphocyte reactivity, specifically stimulated by the TB1 antigens. The TB2-NIL tube detects both CD4+ and CD8+ lymphocyte reactivity, stimulated by TB2 antigens. An overall Negative result does not completely rule out TB infection. A false-positive result in the absence of other clinical evidence of TB infection is not uncommon. Refer to: Updated Guidelines for Using Interferon Gamma Release Assays to Detect Mycobacterium tuberculosis Infection -- [place], 2010 (http://www.cdc.gov/mmwr/preview/mmwrhtml/jd9501g7.htm), for more information concerning test performance in low-prevalence populations and use in occupational screening. Performed By: [email or web address] [address] [place] [id number] Tele[employer] Tower Technician: Uche Morley MD, PhD CLIA Number: [id number] Blood BLOOD SPECIMEN / Unknown Venipuncture / Unknown 04/16/2024 1:43 PM NANOSCIENCE TECHNICIAN 04/16/2024 2:03 PM NANOSCIENCE TECHNICIAN Cindy Garcia MD LAB - CHEMISTRY CHELI MONREAL [facility] [employer] ([facility]) [address] [phone], [facility] * LDH BLOOD (04/16/2024 10:26 AM NANOSCIENCE TECHNICIAN) Only the most recent of13 resultswithin the time period is included. LDH Total 197 125 - 243 Units/L 04/16/2024 11:14 AM NANOSCIENCE TECHNICIAN [facility] Blood BLOOD SPECIMEN / Unknown Venipuncture / Unknown 04/16/2024 10:26 AM NANOSCIENCE TECHNICIAN 04/16/2024 10:48 AM NANOSCIENCE TECHNICIAN Cindy Garcia MD LAB - CHEMISTRY CHELI MONREAL Performing Organization Address City/[facility]/ZIP Co de Phone Number [facility] [address] [place] [address], [facility] [phone] * IR Tim Cath Insert (04/11/2024 9:45 AM NANOSCIENCE TECHNICIAN) Anatomical Region Laterality Modality Chest X-Ray Angiograph y 04/11/2024 9:19 AM NANOSCIENCE TECHNICIAN Impressions 04/11/2024 3:43 PM NANOSCIENCE TECHNICIAN Impression: Successful placement of a single lumen 8 Sammarinese x 23 cm chest power port via the right internal jugular vein under ultrasound and fluoroscopic guidance, as described above. Note: Keep the dressing clean and dry for 5 days. Recommend port access after 5 days to minimize infection and allow better healing. I, Dr. Davian Marshall, was present and performed/supervised the entire procedure. Moderate sedation on this patient was ordered by me, administered intravenously in my presence, and monitored by the procedure nurse as an independent trained observer who was present throughout the procedure. The following parameters were monitored: oxygen saturation, heart rate, blood pressure, and response to care. Intra-service sedation start time was 0823 and end time was 0920 during which I was present. Total physician intra-service sedation time was 57 minutes. For details on pre moderate sedation and post moderate sedation patient evaluation, please review the evaluation forms in EPIC. For details on monitored clinical parameters during the intra-service sedation time, please review the procedure nurse documentation in [facility]. Report dictated by Eduardo Coleman MD, PhD (president mortgage [employer]). > Dictated by Eduardo Coleman MD ([employer]) 04/11/2024 9:19 AM IDavian DO have personally reviewed and interpreted this examination/study. 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 Operators: 1.Dr. Davian Marshall, Attending Physician 2.Dr. Eduardo Coleman, Resident Physician Anesthesia: 1.Local anesthesia - 15 mL of 2% lidocaine with epinephrine 2.Intravenous conscious sedation - Versed 2 mg and Fentanyl 100 mcg Procedure: 1.Ultrasound-guided access of the right internal jugular vein. 2.Creation of subcutaneous pocket and subcutaneous tunnel on the right chest. 3.Fluoroscopy-guided placement of single lumen 8 Sammarinese x 23 cm chest power port via the right internal jugular vein. Fluoroscopic time: 2.1 minutes ? Procedure details: The procedure, risks, and possible complications were explained to the patient in detail and informed consent was obtained. The patient was placed supine on the angiography table. The patient was given 2 grams Ancef for prophylaxis. The right neck and upper chest were prepped and draped in the usual sterile manner. A [employer] web[employer] portal developer film of chest was obtained, which was unremarkable. Limited ultrasound of the right lower neck demonstrated a patent and compressible internal jugular vein. A gold scale image was documented. After instillation of lidocaine with epinephrine, a small incision was made in the right lower neck. Under real time ultrasound guidance, using a micropuncture needle, the right internal jugular vein was accessed. The needle entry was documented. Following a series of exchanges, a 0.035 wire was advanced through the right atrium into the inferior vena cava. Following administration of lidocaine with epinephrine, a skin incision was made over the right upper chest and a subcutaneous pocket was created using blunt and sharp dissection techniques. The port was connected to the catheter and placed in the pocket. Using a tunneling device, the catheter was tunneled from the pocket to the venotomy site in the right neck, after administering lidocaine with epinephrine along the tunnel. The catheter was cut to the appropriate length. A peel-away sheath and dilator combination was advanced over the guidewire into the right atrium under fluoroscopic guidance. The guidewire and dilator were removed, and the catheter was advanced through the peel-away sheath into the right atrium. The peel-away was then removed. The port was accessed, aspirated, and flushed easily. An appropriate amount of heparin (500 units/mL) was placed in the port as per protocol. The pocket was closed using 3.0 and 4.0 Vicryl sutures. The neck and chest incisions were closed with Dermabond. A sterile dressing was applied. Final imaging revealed the port in the right chest with tip of the catheter in the right atrium in good position with no kink along the course of the catheter. The patient tolerated the procedure well and was transferred to the holding area in stable condition. There were no immediate complications associated with the procedure. 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 Operators: 1.Dr. Davian Marshall, Attending Physician 2.Dr. Eduardo Coleman, Resident Physician Anesthesia: 1.Local anesthesia - 15 mL of 2% lidocaine with epinephrine 2.Intravenous conscious sedation - Versed 2 mg and Fentanyl 100 mcg Procedure: 1.Ultrasound-guided access of the right internal jugular vein. 2.Creation of subcutaneous pocket and subcutaneous tunnel on the right chest. 3.Fluoroscopy-guided placement of single lumen 8 Sammarinese x 23 cm chestpower port via the right internal jugular vein. Fluoroscopic time: 2.1 minutes Procedure details: The procedure, risks, and possible complications were explained to the patient in detail and informed consent was obtained. The patient wasplaced supine on the angiography table. The patient was given 2 grams Ancef for prophylaxis. The right neck and upper chest were prepped and draped inthe usual sterile manner. A ib[employer] websphere portal developer film of chest was obtained, which was unremarkable. Limited ultrasound of the right lower neck demonstrated a patent and compressible internal jugular vein. A gold scale image was documented. After instillation of lidocaine with epinephrine, a small incision wasmade in the right lower neck. Under real time ultrasound guidance, using a micropuncture needle, the right internal jugular vein was accessed. The needle entry was documented. Following a series of exchanges, a 0.035wire was advanced through the right atrium into the inferior vena cava. Following administration of lidocaine with epinephrine, a skin incisionwas made over the right upper chest and a subcutaneous pocket was createdusing blunt and sharp dissection techniques. The port was connected to the catheter and placed in the pocket. Using a tunneling device, thecatheter was tunneled from the pocket to the venotomy site in the right neck,after administering lidocaine with epinephrine along the tunnel. The catheterwas cut to the appropriate length. A peel-away sheath and dilator combination was advanced over theguidewire into the right atrium under fluoroscopic guidance. The guidewire and dilator were removed, and the catheter was advanced through thepeel-away sheath into the right atrium. The peel-away was then removed. The port was accessed, aspirated, and flushed easily. An appropriateamount of heparin (500 units/mL) was placed in the port as per protocol. The pocket was closed using 3.0 and 4.0 Vicryl sutures. The neck and chest incisions were closed with Dermabond. A sterile dressing was applied.Final imaging revealed the port in the right chest with tip of the catheter in the right atrium in good position with no kink along the course of the catheter. The patient tolerated the procedure well [facility]. There were no immediate complicationsassociated with the procedure. Impression: Successful placement of a single lumen 8 Sammarinese x 23 cmchest power port via the right internal jugular vein under ultrasound and fluoroscopic guidance, as described above. Note: Keep the dressing clean and dry for 5 days. Recommend port access after 5 days to minimize infection and allow better healing. I, Dr. Davian Marshall, was present and performed/supervised the entire procedure. Moderate sedation on this patient was ordered by me, administered intravenously in my presence, and [facility] as an independent trained observer who was present throughout the procedure. The following parameters were monitored: oxygen saturation, heart rate, blood pressure, and response to care. Intra-service sedation start time was 0823 and end time was 0920 during which I was present.Total physician intra-service sedation time was 57 minutes. For details on pre moderate sedation and post moderate sedation patient evaluation, please review the evaluation forms in [facility]. For details on monitored clinical parameters during the intra-service sedation time, please review the procedure nurse documentation in [facility]. Report dictated by Eduardo Coleman MD, PhD (president mortgage company). > Dictated by Eduardo Coleman MD ([employer]) 04/11/2024 9:19AM IDavian DO have personally reviewed and interpreted this examination/study. > Interpreting Provider: Davian Marshall DO on 04/11/2024 3:43 PM Cindy Garcia MD IR ORDERABLES * PT-INR [facility] (04/11/2024 7:20 AM NANOSCIENCE TECHNICIAN) Only the most recent of11 resultswithin the time period is included. PT 14.6 12.1 - 14.8 Seconds 04/11/2024 7:56 AM NANOSCIENCE TECHNICIAN [facility] INR 1.2 See Comment 04/11/2024 7:56 AM NANOSCIENCE TECHNICIAN [facility] Comment:The suggested therap eutic range for standard coumadin (warfarin) therapy is an INR of 2.0-3.0. For high-risk patients (Mechanical Mitral Valve Prosthesis, etc.), the suggested prophylactic therapeutic range is an INR of 2.5-3.5. Blood BLOOD SPECIMEN / Unknown Venipuncture / Unknown 04/11/2024 7:20 AM NANOSCIENCE TECHNICIAN 04/11/2024 7:23 AM NANOSCIENCE TECHNICIAN Cindy Garcia MD LAB - COAGULATION OR DERABLES [facility] [address] [place] [address], [facility] [phone] * URIC ACID BLOOD (04/01/2024 3:12 PM NANOSCIENCE TECHNICIAN) Only the most recent of13 resultswithin the time period is included. Pathologist [facility] Uric Acid 4.0 3.5 - 7.2 mg/dL 04/01/2024 5:52 PM NANOSCIENCE TECHNICIAN [facility] Blood BLOOD SPECIMEN / Unknown Lab Venipuncture / Unknown 04/01/2024 3:12 PM NANOSCIENCE TECHNICIAN 04/01/2024 5:30 PM NANOSCIENCE TECHNICIAN Cindy Garcia MD LAB - CHEMISTRY CHELI MONREAL [facility] [address] [place] [address], [facility] [phone] * ERYTHROPOIETIN (04/01/2024 3:12 PM NANOSCIENCE TECHNICIAN) [facility] Erythropoietin 22 4 - 27 mU/mL 04/02/2024 11:36 AM NANOSCIENCE TECHNICIAN [employer] ([facility]) Comment: INTERPRETIVE INFORMATION: Erythropoietin Normal serum [...] may benefit from therapy with recombinant EPO ([facility] [id number],1989). Performed By: [email or web address] [address] [place] [address] Telecommunication Tower Technician: Uche Morley MD, PhD CLIA Number: [id number] Blood BLOOD SPECIMEN / Unknown Lab Venipuncture / Unknown 04/01/2024 3:12 PM NANOSCIENCE TECHNICIAN 04/01/2024 3:22 PM NANOSCIENCE TECHNICIAN Cindy Garcia MD LAB - CHEMISTRY CHELI MONREAL [employer] ([facility]) [address] [phone], [facility] * SOLUBLE TRANSFERRIN RECEPTOR (04/01/2024 3:12 PM NANOSCIENCE TECHNICIAN) [facility] Soluble Transferrin Receptor 3.3 2.2 - 5.0 mg/L 04/02/2024 9:13 PM NANOSCIENCE TECHNICIAN [employer] ([facility]) Comment: INTERPRETIVE INFORMATION: Soluble Transferrin Receptor [...] ??High ? Normal ? High Performed By: [email or web address] [address] [place] [address] Telecommunication Tower Technician: Uche Morley MD, PhD CLIA Number: [id number] Blood BLOOD SPECIMEN / Unknown Lab Venipuncture / Unknown 04/01/2024 3:12 PM NANOSCIENCE TECHNICIAN 04/01/2024 3:22 PM NANOSCIENCE TECHNICIAN Cindy Garcia MD LAB - CHEMISTRY CHELI MONREAL [facility] ([facility]) [address] [place] [address], [facility] * PHOSPHORUS BLOOD (04/01/2024 3:12 PM NANOSCIENCE TECHNICIAN) Only the most recent of13 resultswithin the time period is included. Phosphorus 2.9 2.8 - 5.1 mg/dL 04/01/2024 5:52 PM NANOSCIENCE TECHNICIAN [facility] Blood BLOOD SPECIMEN / Unknown Lab Venipuncture / Unknown 04/01/2024 3:12 PM NANOSCIENCE TECHNICIAN 04/01/2024 5:30 PM NANOSCIENCE TECHNICIAN Cindy Garcia MD LAB - CHEMISTRY CHELI MONREAL Performing Organization Address [facility] Co de Phone Number [address] [address], [facility] [phone] * MAGNESIUM BLOOD (04/01/2024 3:12 PM NANOSCIENCE TECHNICIAN) Only the most recent of13 resultswithin the time period is included. Magnesium 2.1 1.6 - 2.6 mg/dL 04/01/2024 4:25 PM NANOSCIENCE TECHNICIAN [facility] Comment:Hemolysis detected i n this specimen. Hemolysis is known to cause elevations in this analyte. Caution should be exercised in the interpretation of this result. Recommend repeat testing if clinically indicated. Blood BLOOD SPECIMEN / Unknown Lab Venipuncture / Unknown 04/01/2024 3:12 PM NANOSCIENCE TECHNICIAN 04/01/2024 3:36 PM NANOSCIENCE TECHNICIAN Cindy Garcia MD LAB - CHEMISTRY CHELI MONREAL Performing Organization Address City/[facility]/ZIP Co de Phone Number [address] [address], [facility] [phone] * LAB RESULTS ORDER (03/25/2024) 03/25/2024 Narrative 03/25/2024 Ordered by an unspecified provider. Scanned Document LAB - THERAPEUTIC DR UG MONITORING ORDERABLES * PTT [facility] (03/23/2024 12:25 AM NANOSCIENCE TECHNICIAN) Only the most recent of10 resultswithin the time period is included. APTT 35.4 23.0 - 38.4 Seconds 03/23/2024 1:31 AM NANOSCIENCE TECHNICIAN [facility] Comment:Suggested therapeuti c range for full dose I.V. unfractionated heparin therapy for venous thromboembolism is 71 to 109 seconds. Blood BLOOD SPECIMEN / Unknown Venipuncture / Unknown 03/23/2024 12:25 AM NANOSCIENCE TECHNICIAN 03/23/2024 1:05 AM NANOSCIENCE TECHNICIAN Ghanshyam Dewey PA-C LAB - COAGULATION OR DERABLES Performing Organization Address City/[facility]/ZIP Co de Phone Number [address] [address], [facility] [phone] * PATHOLOGY PERIPHERAL SMEAR REVIEW (03/18/2024 8:33 AM NANOSCIENCE TECHNICIAN) Pathologist [facility] Path Review Confirmed 03/18/2024 2:44 PM NANOSCIENCE TECHNICIAN [facility] Blood BLOOD SPECIMEN / Unknown Lab Venipuncture / Unknown 03/18/2024 8:33 AM NANOSCIENCE TECHNICIAN 03/18/2024 8:46 AM NANOSCIENCE TECHNICIAN Narrative [facility] - 03/18/2024 2:44 PM NANOSCIENCE TECHNICIAN A rare blast seen. Ghanshyam Dewey PA-C LAB - PATHOLOGY/CYTO LOGY ORDERABLES [address] [address], [employer] [phone] * ECHO COMPLETE W CONTRAST (03/15/2024 1:47 PM NANOSCIENCE TECHNICIAN) IVSd 2D 1.314 cm [facility] CV FUJ I PACS LVIDd 5.186 cm [facility]SM CV FUJ I PACS LVIDs 3.212 cm [facility] CV FUJ I PACS LVOT diam 2.086 cm [facility] CV [facility] I PACS LVPWd 1.34 cm [facility] CV [facility] I PACS LV biplane EF 72.906 % [facility] CV [facility] PACS LV A2C EF 72.639 % [facility] CV [facility] I PACS LV A4C EF 72.078 % [facility] CV [facility] I PACS LV EDV A2C 124.945 ml SSM CV FU JI PACS LV EDV A4C 128.559 ml SSM CV FU JI PACS LV ESV A2C 34.187 ml SSM CV FU JI PACS LV ESV A4C 35.897 ml SSM CV FU PACS LVOT pk lawanda 132.418 cm/s SSM CV [facility] PACS LVOT VTI 32.536 cm SSM CV [facility] I PACS RVIDd 3.985 cm SSM CV [facility] I PACS RVOT pk lawanda 69.928 cm/s SSM CV [facility] PACS RVOT VTI 14.149 cm SSM CV [facility] I PACS LA size 3.887 cm SSM CV [facility] I PACS LA vol BP 103.263 ml SSM CV [facility] I PACS RA area 17.733 cm? ? ? [facility]SM CV [facility] PACS AV pk lawanda regurg 205.453 cm/s SSM CV [facility] PACS AR VTI 104.216 cm SSM CV [facility] I PACS AV mn grad 5.22 mmHg SSM CV FU PACS AV pk lawanda 141.499 cm/s SSM CV [facility] I PACS AV VTI 30.145 cm SSM CV [facility] I PACS MV A pk lawanda 84.582 cm/s SSM CV [facility] PACS MV E pk lawanda 99.639 cm/s SSM CV [facility] PACS MV E' lateral lawanda 5.461 cm/s SSM CV [facility] PACS MV mn grad 1.183 mmHg SSM CV FU PACS MV VTI 30.572 cm SSM CV [facility] I PACS PV pk lawanda 84.446 cm/s SSM CV [facility] I PACS PV VTI 18.271 cm SSM CV [facility] I PACS TAPSE 1.78 cm SSM CV [facility] I PACS TR pk lawanda 276.773 cm/s SSM CV [facility] I PACS Ascending aorta 3.799 cm SSM CV FUJI PACS LA vol index 0.046 l/m? ? ? SSM CV FUJI PACS Myocardial strain charge 2 unitless SSM CV FUJI PACS Sinus of Valsalva 3.4 cm SSM CV FUJI PACS ST junction 3.4 cm SSM CV F UJI PACS Anatomical Region Laterality Modality Ultrasound 03/15/2024 2:04 PM NANOSCIENCE TECHNICIAN Narrative 03/15/2024 5:17 PM NANOSCIENCE TECHNICIAN Summary ??* The left ventricle is normal [...] 1945 Gender: ? Male Accession #: ? [id number] Ht: ? 72 in Wt: ? 218 lb BSA: ? 2.26 m2 HR: ? 65 bpm BP: ? 103 / ? 55 mmHg Exam Date: ? 03/15/2024 2:04 PM Patient Status: ? I/P Study Site: ? [facility] Primary Location: ? [facility] EStudy Info Technical Quality: ? Adequate Exam [...] ? Ted Soler Fellow: ? Josh Knight Screw Machine Setter: ? Dhruv Sorto Left Ventricle ??Left ventricular [...] 2:04 PM Patient Status: I/P Study Site: [facility] Primary Location: [facility] EStudy Info Technical Quality: Adequate Exam Type: [...] Attending Physician: Ted Soler Fellow: Josh Knight Screw Machine Setter: Dhruv Sorto Left Ventricle Left ventricular systolic [...] (2D) 38 % 25-43 LV EF (2D Teichgemmaz) 68 % 52-72 LV Diastolic Volume (4C [...] Cordero on 03/15/2024 05:17 PM Reviewed by Panchito Knight on 03/15/2024 04:56 PM Ted Soler MD [facility] * FISH MDS PANEL BLOOD OR BONE MARROW (03/15/2024 9:05 AM NANOSCIENCE TECHNICIAN) [facility] MDS Panel by Fish See Note Normal 024 11:26 AM NANOSCIENCE TECHNICIAN [employer] ([facility]) Comment: Test Performed: Myelodysplastic Syndrome (MDS) Panel by FISH (FISH MDS P) Specimen Type: Bone Marrow Indication for Testing: Myelodysplastic syndrome, unspecified RESULT Normal FISH Result Deletion 5q: ??not detected Monosomy 7: ??not detected Deletion 7q: ??not detected Trisomy 8: ??not detected Deletion 20q: ??not detected INTERPRETATION There was no evidence of deletion 5q31, monosomy 7, deletion 7q31, trisomy 8, or deletion 90h68-v08.1. This analysis was performed with the MDS panel probes D5S23/EGR1, D7Z1/L0F927, CEP8 ([employer]), and Del(20q) ([employer]). A total of 200 cells were scored for each probe. Cytogenomic Nomenclature (ISCN): nuc nereyda(D5S23,EGR1,D7Z1,I7Q274,D8Z2,P48V903,MYBL2)x2[200' This result has been reviewed and approved by Nabila Gonzalez, PhD, [facility] A portion of this analysis was performed at the following location(s): [facility] Site CG-[place]#2 INTERPRETIVE INFORMATION: MDS Panel by FISH This test was developed and its performance characteristics determined by [email or web address]. It has not been cleared or approved by the US Food and Drug Administration. This test was performed in a CLIA certified laboratory and is intended for clinical purposes. EER MDS Fish Panel See Note 2023 11:26 AM NANOSCIENCE TECHNICIAN [employer] ([facility]) Comment: Authorized individuals can access the [employer] Enhanced Report using the following link: [email or web address] Performed By: [email or web address] [address] [place] [address] Telecommunication Tower Technician: Uche Morley MD, PhD CLIA Number: [id number] Other BONE MARROW SPECIMEN / Unknown Collection / Unknown 03/15/2024 9:05 AM NANOSCIENCE TECHNICIAN 03/15/2024 9:30 AM NANOSCIENCE TECHNICIAN Rodo Perez MD LAB - PATHOLOG Y/CYTOLOGY ORDERABLES [facility] ([facility]) [address] [phone], [facility] * FISH AML PANEL BLOOD OR BM RFLX PML/DANTE (03/15/2024 9:05 AM NANOSCIENCE TECHNICIAN) Only the most recent of2 resultswithin the time period is included. [facility] FISH AML Panel See Note Normal 03/25/2024 10:34 AM [facility] [employer] ([facility]) Comment: Test Performed: Acute Myeloid Leukemia Panel by FISH (FISHAML) Specimen Type: Bone Marrow Indication for Testing: Myelodysplastic syndrome, unspecified RESULT Normal FISH Result inv(3) or t(3;3) GATA2::MECOM Fusion: ??not detected Deletion 5q: ??not detected Monosomy 7: ??not detected Deletion 7q: ??not detected t(8;21) RUNX1::KGJL0L5 Fusion: ??not detected 11p15 (NUP98) Rearrangement: ??not detected 11q23 (KMT2A) Rearrangement: ??not detected inv(16) or t(16;16) CBFB::MYH11 Fusion: ??not detected INTERPRETATION There was no evidence of GATA2::MECOM (also known as RPN1-EVI1) fusion due to 3q21/3q26.2 inversion or translocation, deletion 5q31, monosomy 7, deletion 7q31, RUNX1::NGWK0Y0 fusion due to translocation (8;21)(q21.3;q22), 11p15 (NUP98) rearrangement, 11q23 KMT2A (MLL) rearrangement, or CBFB::MYH11 fusion due to either 16p13.1/16q22 inversion or translocation. This analysis was performed with the AML panel probes RPN1/MECOM, D5S23/EGR1, D7Z1/B6V880, RUNX1/UQYH5Q1 ([employer]), NUP98 and CBFB-MYH11 ([employer]), and MLL (KMT2A) ([employer]). A total of 200 cells were scored for each probe. Cytogenomic Nomenclature (ISCN): nuc nereyda(RPN1,MECOM,D5S23,EGR1,D7Z1,Y4F515,GWSV2U5,NUP98,KMT2A,MYH11,CBF B,RUNX1)x2[200' This result has been reviewed and approved by Mundo Mejia, PhD, [facility] A portion of this analysis was performed at the following location(s): [employer] Site -[place]#1 INTERPRETIVE INFORMATION: AML Panel by FISH This test was developed and its performance characteristics determined by [employer]. It has not been cleared or approved by the US Food and Drug Administration. This test was performed in a CLIA certified laboratory and is intended for clinical purposes. EER AML Panel by FISH See Note 03/25/2024 10:34 AM NANOSCIENCE TECHNICIAN [employer] ([facility]) Comment: Authorized individuals can access the [employer] Enhanced Report using the following link: [email or web address] Performed By: [facility] [address] [place] [address] Telecommunication Tower Technician: Uche Morley MD, PhD CLIA Number: [id number] Other BONE MARROW SPECIMEN / Unknown Collection / Unknown 03/15/2024 9:05 AM NANOSCIENCE TECHNICIAN 03/15/2024 9:30 AM NANOSCIENCE TECHNICIAN Rodo Perez MD LAB - PATHOLOG Y/CYTOLOGY ORDERABLES [facility] ([facility]) [address] [place] [address], [facility] * FLOW CYTOMETRY BONE MARROW (03/15/2024 9:05 AM NANOSCIENCE TECHNICIAN) Only the most recent of2 resultswithin the time period is included. Case Report Flow Cytometry ?Case: [id number] ? Authorizing Provider: ??Rodo Perez, ?? Collected: ? 03/15/2024 09:05 AM ? MD ? Ordering Location: ? [facility] 7N ACUTE ? Received: ?03/15/2024 09:30 AM ? Pathologist: ? Angeles Rosado MD ? Specimen: ?Bone Marrow ? 03/15/2024 2:40 PM [facility] Final Diagnosis Bone marrow, flow cytometric immunophenotypic analysis: - Paucicellular specimen with increased myeloblasts detected (42.4% of events) - See interpretation 03/15/2024 2:40 PM [facility] Flow Cytometry Interpretation [...] has been reviewed for quality assurance supervisor body purposes. Correlation with the concurrent bone marrow biopsy ([id number]) is required. 03/15/2024 2:40 PM [facility] Flow Cytometry Results Differential Result Comment Flow Cell Count /uL 980 Total Viability % 92.0 Lymphocytes % 13 Dim CD45 Region % 55 Monocytes % 2 Granulocytes % 28 03/15/2024 2:[address] [facility] Reason for test MDS (myelodysplastic syndrome) (HCC) 238.75 03/15/2024 2:40 PM [facility] Client Specimen ID # [id number] 03/15/2024 2:40 PM [facility] Number of markers 24 were performed. A-2 Flow CD10 A-3 Flow CD13 A-5 Flow CD20 A-11 Flow CD2 A-13 Flow CD14 A-16 Flow CD117 A-17 Flow CD11b A-18 Flow CD11c A-1 Flow CD5 A-4 Flow CD19 A-6 Flow CD33 A-7 Flow CD34 A-8 Flow CD45 A-12 Flow CD7 A-14 Flow CD56 A-15 Flow CD64 A-23 cyCD22 A-24 nhVB90m A-9 [place]+CD19+ A-10 Lambda+CD19+ A-19 Flow HLA-DR A-20 Flow MPO A-21 Flow TdT A-22 cyCD3 03/15/2024 2:40 PM [facility] Pathologist Location at [facility] 03/15/2024 2:40 PM [facility] Disclaimer Test performed at [facility], [address] [place] [address], [address]. *The established laboratory minimum viability is 70%. [...] complexity clinical testing. 03/15/2024 2:40 PM [facility] Embedded Images 2:40 PM [facility] Pathology/Cytolo gy BONE MARROW SPECIMEN / Unknown Collection / Unknown 03/15/2024 9:05 AM NANOSCIENCE TECHNICIAN 03/15/2024 9:30 AM NANOSCIENCE TECHNICIAN Rodo Perez MD LAB - PATHOLOG Y/CYTOLOGY ORDERABLES [facility] [address] [place] [address]. [place] [address], [facility] [phone] * BONE MARROW BIOPSY (STL) (03/15/2024 9:05 AM NANOSCIENCE TECHNICIAN) Only the most recent of2 resultswithin the time period is included. Case Report Bone Marrow Patholog y Report ?Case: [id number] ? Authorizing Provider: ??Rodo Perez, ?? Collected: ? 03/15/2024 09:05 AM ? MD ? Ordering Location: ? [facility] 7N ACUTE ? Received: ?03/15/2024 09:30 AM ? Pathologist: ? Guillermo Brown, MD ? Specimens: ?? A) - Bone Marrow Clot ? B) - Bone Marrow Core ? C) - Bone Marrow Aspirate ? D) - Blood Peripheral ? 03/18/2024 4:01 PM [facility] Final Diagnosis Bone marrow, aspirate, clot section, and core biopsy: - Acute myeloid leukemia. - See description. Peripheral blood smear: - Pancytopenia. - See description. 03/18/2024 4:01 PM [facility] Comment Immunohistochemistry performed [...] a definitive subclassification. 03/18/2024 4:01 PM [facility] Peripheral Smear Description RBC: normocytic anemia. WBC: leukopenia with absolute neutropenia and lymphopenia. No circulating blasts seen. Platelets: decreased in number. 03/18/2024 4:01 PM [facility] Bone Marrow Aspirate [...] no ring sideroblasts. 03/18/2024 4:01 PM [facility] Bone Marrow Core [...] peripheral blood only. 03/18/2024 4:01 PM [facility] Flow Cytometry Summary Bone marrow, flow cytometric immunophenotypic analysis ([id number]): - Paucicellular specimen with increased myeloblasts detected (42.4% of events) 03/18/2024 4:01 PM [facility] Clinical History New AML. 03/18/2024 4:01 PM [facility] Gross Description The [...] cassette B1. DF 03/18/2024 4:01 PM [facility] Pathologist Location at [facility] 03/18/2024 4:01 PM [facility] Disclaimer The performance characteristics of all immunohistochemical and indirect immunofluorescence stains (if any) cited in this report were determined by the [facility]. Some of these tests were developed [...] attending (teaching) pathologist. 03/18/2024 4:01 PM [facility] Embedded Images 03/18/2024 4:01 PM [facility] Pathology/Cytology PERIPHERAL BLOOD / Unknown Collection / Unknown 03/15/2024 9:05 AM NANOSCIENCE TECHNICIAN 03/15/2024 9:30 AM NANOSCIENCE TECHNICIAN Miscellaneous samples (specimen) BONE MARROW SPECIMEN / Unknown 03/15/2024 9:05 AM NANOSCIENCE TECHNICIAN 03/15/2024 9:30 AM NANOSCIENCE TECHNICIAN Miscellaneous samples (specimen) SPECIMEN FROM BONE MARROW OBTAINED BY ASPIRATION / Unknown 03/15/2024 9:05 AM NANOSCIENCE TECHNICIAN 03/15/2024 9:30 AM NANOSCIENCE TECHNICIAN Miscellaneous samples (specimen) PERIPHERAL BLOOD / Unknown 03/15/2024 9:05 AM NANOSCIENCE TECHNICIAN 03/15/2024 11:39 AM NANOSCIENCE TECHNICIAN Rodo Perez MD LAB - PATHOLOG Y/CYTOLOGY ORDERABLES [facility] PATH[facility] [address] [id number] [phone] * MYELOID MALIGNANCIES MUTATION PNL (03/15/2024 9:05 AM NANOSCIENCE TECHNICIAN) Only the most recent of2 resultswithin the time period is included. Interpretation Myeloid Malignancy PNL See Note 03/28/2024 2:06 PM NANOSCIENCE TECHNICIAN [employer] ([facility]) Comment: Myeloid Malignancies Mutation Panel NGS Submitted diagnosis or diagnosis under consideration for variant interpretation: Myelodysplastic syndrome, unspecified Note: Prior NGS testing performed on this patient (most recent [employer] accession [id number]) was reviewed in conjunction with the current case to compare molecular variants reported. The previously reported molecular variants DNMT3A, IDH1, and CUX1 are again detected in the current study. In addition, new molecular variants in STAG2, BCOR, JAK2, and CEBPA are now detected. TIER 1: Variants of Known Clinical Significance in Hematologic Malignancies 1. IDH1 c.394C>A, p.Hkq849Saa ([id number]) VAF: 38.4% IDH1 encodes an enzyme that catalyzes the conversion of isocitrate to alpha-ketoglutarate in the citric acid cycle (23). Somatic mutations of IDH1 are found in 4-12% of patients with myelodysplastic syndrome (MDS).This mutation has been reported in hematologic malignancies (4). The prognostic significance of mutated IDH1 in MDS is uncertain (20) (27) (7) (14) (19) (32). 2. DNMT3A c.2206C>T, p.Mex363Puu ([id number]) VAF: 42.2% DNMT3A encodes a DNA [...] stem cell transplantation (2). 3. DNMT3A c.2407A>G, p.Shx859Gph ([id number]) VAF: 38.8% This mutation has also been reported in hematologic malignancies (4). 4. JAK2 c.1849G>T, p.Quw111Zyx ([id number]) VAF: 14.4% JAK2 encodes a non-receptor protein tyrosine kinase that regulates STAT front office manager factors in response to cytokine receptor signaling (13). JAK2 mutations have been reported in 3-6% of patients with MDS (6) (15) (31). This JAK2 mutation (p.Bzr776Fgr) has also been reported in approximately 10-25% of patients with myelodysplastic/myeloproliferative neoplasms (MDS/MPN) (31) (21). This particular JAK2 mutation occurs in the pseudokinase (JH2) domain and leads to activation of the NOLAN-STAT pathway signaling. The prognostic significance of JAK2 mutations in MDS is unclear (6). 5. STAG2 c.1840C>T, p.Ajs968* ([id number]) VAF: 31.7% STAG2 encodes a subunit [...] unmutated cohesin genes (29). 6. BCOR c.3649C>T, p.Dgx6117* ([id number]) VAF: 9.6% BCOR encodes a transcriptional corepressor that interacts with BCL-6 and histone deacetylases (HDACs) (5) (12). Mutations in BCOR are seen in 4% of patients with MDS (5) (11). BCOR mutations in MDS are often frameshift and nonsense mutations that result in xqct-pw-kvrsszjb (5) (11). This mutation is predicted to alter the normal function of BCOR. BCOR mutations are associated with a higher incidence of AML transformation in MDS patients and shorter overall survival in MDS patients (5) (11) (16). 7. BCOR c.635_638del, p.Rwx746Sfniu*3 ([id number]) VAF: 6.2% This mutation is also predicted to alter the normal function of BCOR. TIER 2: Variants of Unknown Clinical Significance in Hematologic Malignancies 1. CEBPA c.1074_*9del, p.*359Cysext*58 ([id number]) VAF: 4.7% CEBPA encodes a protein that is a member of the basic region leucine zipper family of front office manager factors (18). Somatic mutations of CEBPA are [...] if any, is uncertain. 2. CUX1 c.3085G>A, p.Ebn0673Oyk ([id number]) VAF: 44.8% This variant has been rarely reported in hematologic malignancies (1) (10), to the best of our knowledge. References 1: Lynnette P, ??Emmanuelle B, ??Zhanna CLARK et al, Assessment of Minimal Residual Disease by Next Generation Sequencing in Peripheral Blood as a Complementary Tool for Personalized Transplant Monitoring in Myeloid Neoplasms. J Clin Med 2020. PMID:20715179 2: Virginie R, ??Juan HERNANDEZ, ??Ulises Kim et al, Somatic mutations predict poor outcome in patients with myelodysplastic syndrome after hematopoietic stem-cell transplantation. J Clin Oncol 2014. PMID:02701812 3: cBioPortal: http://www.cbioportal.org/ 4: COSMIC: https://cancer.vipin.ac.uk/cosmic 5: Braulio F, ??Yu V, ??Nagmeagan Y et al, BCOR and BCORL1 mutations in myelodysplastic syndromes and related disorders. Blood 2013. PMID:31711680 6: Bill M, ??Jennifer C, ??Víctor Stroud et al, JAK2 Mutations Are Rare and Diverse in Myelodysplastic Syndromes: Case Series and Review of the Literature. Hematol Rep 2022. PMID:81445678 7: Jahaira CD, ??Kamla E, ??Mary Mason et al, IDH1 and IDH2 mutations in myelodysplastic syndromes and role in disease progression. Leukemia 2016. PMID:36508649 8: Asiya I, ??Day C, ??Lenin MURPHY et al, Frequency, onset and clinical impact of somatic DNMT3A mutations in therapy-related and secondary acute myeloid leukemia. Haematologica 2012. PMID:64765575 9: Nuha O, ??Idania D, ??Luanne Payne et al, CEBPA polymorphisms and mutations in patients with acute myeloid leukemia, myelodysplastic syndrome, multiple myeloma and non-Hodgkin's lymphoma. Blood Cells Mol Dis 2008. PMID:95039326 10: Cassandra B, ??Cornell M, ??Alexis Valdivia et al, DNA methylation epitypes highlight underlying developmental and disease pathways in acute myeloid leukemia. Genome Res 2020. PMID:86762411 11: Ivan V, ??Jenna E, ??Alondra DEMPSEY et al, Whole-exome sequencing identifies somatic mutations of BCOR in acute myeloid leukemia with normal karyotype. Blood 2011. PMID:86980623 12: Lin RUEDA, ??Yashira W, ??Darcie Estrada et al, BCoR, a novel corepressor involved in BCL-6 repression. Genes Dev 2000. PMID:21680830 13: Fabian SS, ??Jen SJ, ??Amandeep MORRISON et al, Nolan/STAT pathways in cytokine signaling and myeloproliferative disorders: approaches for targeted therapies. Genes Cancer 2010. PMID:32637578 14: Jose J O, ??Charity V, ??Grayson Stroud et al, Mutations of IDH1 and IDH2 genes in early and accelerated phases of myelodysplastic syndromes and MDS/myeloproliferative neoplasms. Leukemia 2010. PMID:88163091 15: Meggendorfer M, ??Catherine C, ??Ahsan Talavera et al, Molecular analysis of myelodysplastic syndrome with isolated deletion of the long arm of chromosome 5 reveals a specific spectrum of molecular mutations with prognostic impact: a study on 123 patients and 27 genes. Haematologica 2017. PMID:72517664 16: Gregoria BAR, ??Meliton T, ??Valerie Payne et al, Spectrum and prognostic relevance of substitute bus driver gene mutations in acute myeloid leukemia. Blood 2016. PMID:[id number] 17: Nicol T, ??Mel MEANS, ??Milton P et al, Dominant-negative mutations of CEBPA, encoding CCAAT/enhancer binding protein-alpha (C/EBPalpha), in acute myeloid leukemia. Yusra Emely 2001. PMID:29914738 18: Mel Hughes, Complexity of CEBPA dysregulation in human acute myeloid leukemia. Clin Cancer Res 2009. PMID:30827496 19: Papaemmanuil E, ??Gerstung M, ??Hugh Stroud et al, Clinical and biological implications of substitute bus driver mutations in myelodysplastic syndromes. Blood 2013. PMID:79483730 20: Eileen MURPHY, ??Rajinder CHRISTY, ??Juju OTERO et al, Differential prognostic effect of IDH1 versus IDH2 mutations in myelodysplastic syndromes: a [facility] study of 277 patients. Leukemia 2012. PMID:[id number] 21: Eileen MURPHY, George TL, Genomics of myelodysplastic syndrome/myeloproliferative neoplasm overlap syndromes. Hematology Am Soc Hematol Educ Program 2020. PMID:34048504 22: Preudhomme C, ??Sagot C, ??Heather Flower et al, Favorable prognostic significance of CEBPA mutations in patients with de elinor acute myeloid leukemia: a study from the Acute Leukemia [place] [employer] (JOSE). Blood 2002. PMID:14609177 23: Bulmaro BENTON, Josse H, Isocitrate dehydrogenase 1 and 2 mutations in cancer: alterations at a crossroads of cellular metabolism. J Natl Cancer Inst 2010. PMID:60329965 24: Jose Valdivia, ??Ivan V, ??Yudi U et al, [place] analysis of DNMT3A mutations in hematological malignancies. Leukemia 2013. PMID:37394715 25: Kim AH, ??Lisa-Hussein O, ??Arnulfo REINOSO et al, The role of mutations in epigenetic regulators in myeloid malignancies. Yusra Rev Cancer 2012. PMID:70103873 26: Robby F, ??Hubert ISSA, ??Efrem Payne et al, CEBPA mutations in 4708 patients with acute myeloid leukemia: differential impact of bZIP and TAD mutations on outcome. Blood 2021. PMID:61246438 27: Thol F, ??Weissinger EM, ??Sam Lynn et al, IDH1 mutations in patients with myelodysplastic syndromes are associated with an unfavorable prognosis. Haematologica 2010. PMID:82374986 28: Thol F, ??Lisa C, ??Bro Valdivia et al, Rare occurrence of DNMT3A mutations in myelodysplastic syndromes. Haematologica 2011. PMID:57361176 29: Josey S, ??Liam AD, ??Joan Weller et al, Genetic alterations of the cohesin complex genes in myeloid malignancies. Blood 2014. PMID:35161948 30: Barrett MERRITT, ??Tono L, ??Jossue Amador et al, Recurrent DNMT3A mutations in patients with myelodysplastic syndromes. Leukemia 2011. PMID:92641825 31: Lawrence Z, Juan Diego B, Comparison and Implications of Mutational Profiles of Myelodysplastic Syndromes, Myeloproliferative Neoplasms, and Myelodysplastic/Myeloproliferative Neoplasms: A [place]-Analysis. Front Oncol 2020. PMID:[id number] 32: Cornell Flower, ??Cornell F, ??Yuval Flower et al, IDH1 Mutation Is an Independent Inferior Prognostic Indicator for Patients with Myelodysplastic Syndromes. Acta Haematol 2017. PMID:97294857 33: Ochoa Stroud, Gabriella R, Hieu ALBERTS, DNMT3A in haematological malignancies. Yusra Rev Cancer 2015. PMID:99985804 This result has been reviewed and approved by Jannette Dutta M.D. Low coverage regions: Listed below are regions where the average sequencing depth (number of times a particular nucleotide is sequenced) in at least 20% of the jipvnv-bo-kpkptdzw is less than our stringent cutoff of [...] NOTCH1; NPM1*; NRAS; NSD1; PHF6; PIGA; PPM1D; MOWZ70B; PRPF8; PTPN11; RAD21; RUNX1; SAMD9; SAMD9L; SETBP1; [...] developed and its performance characteristics determined by [email or web address]. It has not been cleared or approved by the U.S. Food and Drug Administration. This test was performed in a CLIA-certified laboratory and is intended for clinical purposes. Myeloid Malignancy Dx Mds Unspec 03/28/2024 2:06 PM NANOSCIENCE TECHNICIAN [facility] ([facility]) Myeloid Malignancy Panel Specimen Bone Marrow 03/28/2024 2:06 PM NANOSCIENCE TECHNICIAN [facility]) EER Myeloid Malignancy See Note 03/28/2024 2:06 PM NANOSCIENCE TECHNICIAN [facility] ([facility]) Comment: Authorized individuals can access the [facility] Enhanced Report using the following link: [email or web address] Performed By: [email or web address] [address] [place] [address] Telecommunication Tower Technician: Uche Morley MD, PhD IA Number: [id number] Other BONE MARROW SPECIMEN / Unknown Collection / Unknown 03/15/2024 9:05 AM NANOSCIENCE TECHNICIAN 03/15/2024 9:30 AM NANOSCIENCE TECHNICIAN Rodo Perez MD LAB - PATHOLOG Y/CYTOLOGY ORDERABLES [facility] My1[employer] [facility]) [address] * LAB MISC TEST (NOT BLOOD) (03/15/2024 9:05 AM NANOSCIENCE TECHNICIAN) Only the most recent of3 resultswithin the time period is included. Test Name Tp53 03/21/2024 12:06 PM NANOSCIENCE TECHNICIAN [facility] REF LAB NON INTERF Test Result See Scanned Report 03/21/2024 12:06 PM [facility] REF LAB NON INTERF Comment Ref Lab 03/21/2024 12:06 PM NANOSCIENCE TECHNICIAN [facility] REF LAB NON INTERF Other BONE MARROW SPECIMEN / Unknown Collection / Unknown 03/15/2024 9:05 AM NANOSCIENCE TECHNICIAN 03/15/2024 9:30 AM NANOSCIENCE TECHNICIAN Rodo Perez MD LAB - BODY FLU ID ORDERABLES [facility] REF LAB NON INTERF [address] [place] [address], [facility] [phone] * FISH PML/DANTE PANEL (03/15/2024 9:05 AM NANOSCIENCE TECHNICIAN) Only the most recent of2 resultswithin the time period is included. EER PML/DANTE Translocation by Fish See Note 03/17/2024 4:41 PM NANOSCIENCE TECHNICIAN [employer] ([facility]) Comment: Authorized individuals can access the [employer] Enhanced Report using the following link: [email or web address] Performed By: [email or web address] [address] [place] [address] Telecommunication Tower Technician: Uche Morley MD, PhD CLIA Number: [id number] PML/DANTE Translocation by FISH See Note 03/17/2024 4:41 PM [facility] [employer] ([facility]) Comment: Test Performed: PML-DANTE Translocation by [...] Nabila Gonzalez, PhD, [facility] A portion of this analysis was performed at the following location(s): [facility] [place] INTERPRETIVE INFORMATION: PML/DANTE Translocation by FISH This test was developed and its performance characteristics determined by [facility] [employer]. It has not been cleared or approved by the US Food and Drug Administration. This test was performed in a CLIA certified laboratory and is intended for clinical purposes. Other BONE MARROW SPECIMEN / Unknown Collection / Unknown 03/15/2024 9:05 AM NANOSCIENCE TECHNICIAN 03/15/2024 9:30 AM NANOSCIENCE TECHNICIAN Rodo Perez MD LAB - PATHOLOG Y/CYTOLOGY ORDERABLES [facility] My[employer]login [facility]) [address] * CHROMOSOME ANALYSIS BONE MARROW PANEL (03/15/2024 9:05 AM NANOSCIENCE TECHNICIAN) Pathologist [facility] Chromosome Analysis Bone Marrow See Note Normal 03/22/2024 11:01 AM NANOSCIENCE TECHNICIAN [facility] ([facility]) Comment: Test Performed: Chromosome Analysis Specimen [...] study. NOTE: Concurrent FISH PML performed under [facility] accession [id number] was NORMAL. FISHAML and FISH MDS P are PENDING and will be reported under [facility] accessions [id number] and [id number]. This result has been reviewed and approved by Randall Yun, PhD, [facility] A portion of this analysis was performed at the following location(s): [facility] INTERPRETIVE INFORMATION: Chromosome Analysis, Bone Marrow This test was developed and its performance characteristics determined by [email or web address]. It has not been cleared or approved by the US Food and Drug Administration. This test was performed in a CLIA certified laboratory and is intended for clinical purposes. EER Chromosome Analysis Bone Marrow See Note 03/22/2024 11:01 AM NANOSCIENCE TECHNICIAN [facility] [employer] ([facility]) Comment: Authorized individuals can access the [facility] Enhanced Report using the following link: [email or web address] Performed By: [email or web address] [address] [place] [address] Telecommunication Tower Technician: Uche Morley MD, PhD CLIA Number: [id number] Bone marrow BONE MARROW SPECIMEN / Unknown 03/15/2024 9:05 AM NANOSCIENCE TECHNICIAN 03/15/2024 9:30 AM NANOSCIENCE TECHNICIAN Rodo Perez MD LAB - PATHOLOG Y/CYTOLOGY ORDERABLES [facility] My[employer] [facility]) [address] * FLOW CYTOMETRY BLOOD PROFILE (03/14/2024 10:32 AM NANOSCIENCE TECHNICIAN) Case Report Flow Cytometry ?Case: [id number] ? Authorizing Provider: ??Ghanshyam Dewey PA-C ? Collected: ? 03/14/2024 10:32 AM ? Ordering Location: ? [facility] AC[facility] ? Received: ?03/14/2024 01:49 PM ? Pathologist: ? Angeles Rosado MD ? Specimen: ?Blood ? 03/14/2024 4:58 PM [facility] PATHOLOGY LAB Final Diagnosis Peripheral blood, flow cytometric immunophenotypic analysis: - 1.2% myeloblasts detected - No evidence of a monoclonal B-cell population - See interpretation 03/14/2024 4:58 PM [facility] Flow Cytometry Results Differential Result Comment WBC Count /uL 1,200 Total Viability % 100.0 Lymphocytes % 80 Dim CD45 Region % 4 Monocytes % 4 Granulocytes % 13 03/14/2024 4:58 PM [facility] Flow Cytometry Interpretation Viability: 100% B-cells: polytypic, kappa:lambda ratio 1.1:1. Blasts: 1.2% of events are myeloblasts. Monocytes are mature. A peripheral blood smear prepared from the flow cytometry specimen has been reviewed for quality assurance supervisor body purposes. 03/14/2024 4:58 PM [facility] Reason for test MDS (myelodysplastic syndrome) (HCC) 238.75 03/14/2024 4:58 PM [facility] Client Specimen ID # [id number] 03/14/2024 4:58 PM [facility] Pathologist Location at [facility] 03/14/2024 4:58 PM [facility] LAB Disclaimer Test performed at [facility], [address] [place] [address], [address]. *The established laboratory minimum viability is 70%. [...] complexity clinical testing. 03/14/2024 4:58 PM [facility] Embedded Images 4:58 PM [facility] Number of markers 19 were performed. A-2 Flow CD10 A-3 Flow CD13 A-5 Flow CD20 A-11 Flow CD2 A-13 Flow CD14 A-16 Flow CD117 A-17 Flow CD11b A-18 Flow CD11c A-1 Flow CD5 A-4 Flow CD19 A-6 Flow CD33 A-7 Flow CD34 A-8 Flow CD45 A-12 Flow CD7 A-14 Flow CD56 A-15 Flow CD64 A-9 [place]+CD19+ A-10 Lambda+CD19+ A-19 Flow HLA-DR 03/14/2024 4:58 PM [facility] PATH[facility] LAB Blood BLOOD SPECIMEN / Unknown Lab Venipuncture / Unknown 03/14/2024 10:32 AM NANOSCIENCE TECHNICIAN 03/14/2024 1:49 PM NANOSCIENCE TECHNICIAN Ghanshyam Dewey PA-C LAB - PATHOLOGY/CYTO LOGY ORDERABLES [facility] PATHOLOGY LAB [address] [place] [place] [address], [facility] [phone] * CYTOMEGALOVIRUS (CMV) QUANTITATIVE PLASMA (03/13/2024 11:26 PM NANOSCIENCE TECHNICIAN) Pathologist [facility] CMV Quant by PCR, Interp Not detected Not detected 03/14/2024 9:00 AM NANOSCIENCE TECHNICIAN [facility] MICROBIOLOGY Blood BLOOD SPECIMEN / Unknown Venipuncture / Unknown 03/13/2024 11:26 PM NANOSCIENCE TECHNICIAN 03/13/2024 11:37 PM NANOSCIENCE TECHNICIAN Narrative [facility] MICROBIOLOGY - 03/14/2024 9:00 AM NANOSCIENCE TECHNICIAN The Cytomegalovirus (CMV) DNA analysis utilized a [...] Soler MD LAB - CHEMISTRY OR DERABLES [facility] MICROBIOLOG[facility] [address] [place] [address], [facility] [phone] * QUINN-TOVAR VIRUS QUANT BLOOD STL (03/13/2024 11:26 PM NANOSCIENCE TECHNICIAN) [facility] EBV Quant by PCR, Interp Not detected Not detected 03/14/2024 8:56 AM NANOSCIENCE TECHNICIAN [facility] MICROBIOLOGY Specimen Type Plasma 03/14/2024 8:56 AM NANOSCIENCE TECHNICIAN [facility] MICROBIOLOGY Blood BLOOD SPECIMEN / Unknown Venipuncture / Unknown 03/13/2024 11:26 PM NANOSCIENCE TECHNICIAN 03/13/2024 11:37 PM NANOSCIENCE TECHNICIAN Narrative [facility] MICROBIOLOGY - 03/14/2024 8:56 AM NANOSCIENCE TECHNICIAN The Quinn-Tovar viral (EBV) DNA analysis utilized [...] Soler MD LAB - CHEMISTRY OR DERABLES [facility] MICROBIOLOG[facility] [address] [facility] [place] [address], [facility] [phone] * D-DIMER (03/13/2024 11:26 PM NANOSCIENCE TECHNICIAN) D-Dimer Quantitative <0.27 <=0.50 mcg/mL FEU 03/14/2024 12:00 AM NANOSCIENCE TECHNICIAN [facility] Comment: In the absence [...] Unknown Venipuncture / Unknown 03/13/2024 11:26 PM NANOSCIENCE TECHNICIAN 03/13/2024 11:37 PM NANOSCIENCE TECHNICIAN Ted Soler MD LAB - COAGULATION ORDERABLES Performing Organization Address City/[facility]/ZIP Co de Phone Number [address] [address], [facility] [phone] * FIBRINOGEN ACTIVITY (03/13/2024 11:26 PM NANOSCIENCE TECHNICIAN) [facility] Fibrinogen Clauss 362 200 - 400 mg/dL 03/13/2024 11:59 PM NANOSCIENCE TECHNICIAN [facility] Blood BLOOD SPECIMEN / Unknown Venipuncture / Unknown 03/13/2024 11:26 PM NANOSCIENCE TECHNICIAN 03/13/2024 11:37 PM NANOSCIENCE TECHNICIAN Ted Soler MD LAB - COAGULATION ORDERABLES Performing Organization Address [facility]/ZIP Co de Phone Number [address] [address], [place] [phone] * FISH AML+MDS PANEL BLOOD OR BONE MARROW (03/04/2024 4:13 PM NANOSCIENCE TECHNICIAN) [facility] FISH AML with MDS, Therapy-Rltd AML See Note Normal 03/19/2024 4:32 PM NANOSCIENCE TECHNICIAN [facility] ([facility]) Comment: Test Performed: Acute Myelogenous Leukemia [...] with the Therapy-Related AML panel probes D5S23/EGR1, D7Z1/G3J853, and MLL (KMT2A) ([employer]). A total of 200 cells were scored for each probe. Cytogenomic Nomenclature (ISCN): nuc nereyda(D5S23,EGR1,D7Z1,Z0H923,KMT2A)x2[200' This result has been reviewed and approved by Charles Pablo MD, [facility] INTERPRETIVE INFORMATION: AML with MDS, Therapy-Related AML, FISH This test was developed and its performance characteristics determined by [email or web address]. It has not been cleared or approved by the US Food and Drug Administration. This test was performed in a CLIA certified laboratory and is intended for clinical purposes. EER AML with MDS, Therapy-Rltd AML FISH See Note 03/19/2024 4:32 PM NANOSCIENCE TECHNICIAN [employer] ([facility]) Comment: Authorized individuals can access the [employer] Enhanced Report using the following link: [email or web address] Performed By: [email or web address] [address] [place] [address] Telecommunication Tower Technician: Uche Morley MD, PhD CLIA Number: [id number] Other BLOOD SPECIMEN / Unknown Collection / Unknown 03/04/2024 4:13 PM NANOSCIENCE TECHNICIAN 03/04/2024 4:23 PM NANOSCIENCE TECHNICIAN Cindy Garcia MD LAB - PATHOLOGY/CYTO LOGY ORDERABLES [facility]) [address] [place] [address], [facility] * HLA TYPING LOW/HIGH RESOLUTION DPB1 (03/04/2024 4:13 PM NANOSCIENCE TECHNICIAN) Typ DNA LR DPB1 [place] #1 *04 04/29/2024 2:56 PM NANOSCIENCE TECHNICIAN [facility] ([facility]) Typ DNA LR DPB1 [place] #2 *11 04/29/2024 2:56 PM NANOSCIENCE TECHNICIAN [facility] ([facility]) Typ DNA HR DPB1 [place] #1 *04:01:01G 04/29/2024 2:56 PM NANOSCIENCE TECHNICIAN [facility] ([facility]) Typ DNA HR DPB1 [place] #2 *11:01:01G 04/29/2024 2:56 PM NANOSCIENCE TECHNICIAN [facility] ([facility]) Test Methodology RTPCR/NGS 04/29/19 2:56 PM NANOSCIENCE TECHNICIAN [facility] ([facility]) Date Results Entered [id number] 04/29/2024 2:56 PM NANOSCIENCE TECHNICIAN [facility] ([facility]) Comment: Methodology - Next Generation Sequencing ?? This test was developed and its performance characteristics determined by ?? the [facility]. ??It has not been cleared or approved by the ?? U.S. Food and Drug Administration. ?? The FDA has determined that such ?? clearance or approval is not necessary. ?? This test is used for clinical ?? purposes. ??It should not be regarded as investigational or for research. ?? This laboratory is certified under the Clinical Laboratory Improvement ?? Amendments of 1988 (CLIA-88) as qualified to perform high complexity ?? clinical laboratory testing. ??CLIA ID# [id number] ?? Performed at: [facility], [facility] ?? [place], [place] ?? [address] ?? Housekeeper Nanny: Sandeep Jerry, Ph.D., D([facility]), Blood BLOOD SPECIMEN / Unknown Lab Venipuncture / Unknown 03/04/2024 4:13 PM NANOSCIENCE TECHNICIAN 03/05/2024 9:56 AM NANOSCIENCE TECHNICIAN Cindy Garcia MD LAB - BLOOD BANK ORD ERABLES [facility] ([facility]) [address] [place] [address] * HLA TYPING DNA LOW RESOLUTION DR,DQ (03/04/2024 4:13 PM NANOSCIENCE TECHNICIAN) DR DQ Low Resolution DRB1-1 *07 04/29/2024 2:56 PM NANOSCIENCE TECHNICIAN [facility] ([facility]) DR DQ Low Resolution DQB1-1 *02 04/29/2024 2:56 PM NANOSCIENCE TECHNICIAN [facility] ([facility]) DR DQ Low Resolution DRB3-1 Negative 04/29/2024 2:56 PM NANOSCIENCE TECHNICIAN [facility] ([facility]) DR DQ Low Resolution DRB3-2 Negative 04/29/2024 2:56 PM NANOSCIENCE TECHNICIAN [facility] ([facility]) DR DQ Low Resolution DRB4-1 *01 04/29/2024 2:56 PM NANOSCIENCE TECHNICIAN [facility] ([facility]) DR DQ Low Resolution DRB4-2 Negative 04/29/2024 2:56 PM NANOSCIENCE TECHNICIAN [facility] ([facility]) DR DQ Low Resolution DRB5-1 Negative 04/29/2024 2:56 PM NANOSCIENCE TECHNICIAN [facility] ([facility]) DR DQ Low Resolution DRB5-2 Negative 04/29/2024 2:56 PM NANOSCIENCE TECHNICIAN [facility] ([facility]) DR DQ Low Resolution Methodology Real Time PCR 04/29/2024 2:56 PM NANOSCIENCE TECHNICIAN [facility] ([facility]) DR DQ Low Resolution test date [id number] 04/29/2024 2:56 PM NANOSCIENCE TECHNICIAN [facility] ([facility]) Comment: Methodology - Real-Time PCR ?? This test was developed and its performance characteristics determined by ?? the [facility]. ??It has not been cleared or approved by the ?? U.S. Food and Drug Administration. ??The FDA has determined that such ?? clearance or approval is not necessary. ??This test is used for clinical ?? purposes. ??It should not be regarded as investigational or for research. ?? This laboratory is certified under the Clinical Laboratory Improvement ?? Amendments of 1988 (CLIA-88) as qualified to perform high complexity ?? clinical laboratory testing. ??CLIA ID# [id number] ?? Performed at: [facility], [address] [place] [address] ?? [place], [place] ??[address] ?? Housekeeper Nanny: Sandeep Jerry, Ph.D., D([facility]), Blood BLOOD SPECIMEN / Unknown Lab Venipuncture / Unknown 03/04/2024 4:13 PM NANOSCIENCE TECHNICIAN 03/05/2024 9:56 AM NANOSCIENCE TECHNICIAN Cindy Garcia MD LAB - BLOOD BANK ORD ERABLES Performing Organization Address City/State/[facility] Co de Phone Number [facility] ([facility]) [address] * HLA TYPING DNA LOW RESOLUTION A,B,C (03/04/2024 4:13 PM NANOSCIENCE TECHNICIAN) ABC DNA A1 *02 04/29/2024 2:56 PM NANOSCIENCE TECHNICIAN [facility] ([facility]) ABC DNA A2 *30 04/29/2024 2:56 PM NANOSCIENCE TECHNICIAN [facility] ([facility]) ABC DNA B1 *13 04/29/2024 2:56 PM NANOSCIENCE TECHNICIAN [facility] ([facility]) ABC DNA B2 *44 04/29/2024 2:56 PM NANOSCIENCE TECHNICIAN [facility] ([facility]) ABC DNA BW1 4 04/29/2024 2:56 PM NANOSCIENCE TECHNICIAN [facility] ([facility]) ABC DNA BW2 4 04/29/2024 2:56 PM NANOSCIENCE TECHNICIAN [facility] ([facility]) ABC DNA C1 *06 04/29/2024 2:56 PM NANOSCIENCE TECHNICIAN [facility] ([facility]) ABC DNA C2 *16 04/29/2024 2:56 PM NANOSCIENCE TECHNICIAN [facility] ([facility]) ABC DNA Methodology Real Time PCR 04/29/2024 2:56 PM NANOSCIENCE TECHNICIAN [facility] ([facility]) ABC DNA Test Date [id number] 2:56 PM NANOSCIENCE TECHNICIAN [facility] ([facility]) Comment: Methodology - Real-Time PCR ?? This test was developed and its performance characteristics determined by ?? the [facility]. ??It has not been cleared or approved by the ?? U.S. Food and Drug Administration. ??The FDA has determined that such ?? clearance or approval is not necessary. ??This test is used for clinical ?? purposes. ??It should not be regarded as investigational or for research. ?? This laboratory is certified under the Clinical Laboratory Improvement ?? Amendments of 1988 (CLIA-88) as qualified to perform high complexity ?? clinical laboratory testing. ??CLIA ID# [id number] ?? Performed at: [facility], [address] [place] [address] ?? [place], [place] ??[address] ?? Housekeeper Nanny: Sandeep Jerry, Ph.D., D([facility]), Blood BLOOD SPECIMEN / Unknown Lab Venipuncture / Unknown 03/04/2024 4:13 PM NANOSCIENCE TECHNICIAN 03/05/2024 9:56 AM NANOSCIENCE TECHNICIAN Cindy Garcia MD LAB - BLOOD BANK ORD ERABLES Performing Organization Address City/[facility] Co de Phone Number [facility] ([facility]) [address] * HLA TYPING DNA HIGH RESOLUTION DR (03/04/2024 4:13 PM NANOSCIENCE TECHNICIAN) Blood BLOOD SPECIMEN / Unknown Lab Venipuncture / Unknown 03/04/2024 4:13 PM NANOSCIENCE TECHNICIAN 03/05/2024 9:56 AM NANOSCIENCE TECHNICIAN Narrative [facility] ([facility]) - 04/29/2024 4:00 PM NANOSCIENCE TECHNICIAN See Scanned Report Cindy Garcia MD LAB - BLOOD BANK ORD ERABLES Performing Organization Address [facility] Co de Phone Number [facility] ([facility]) [address] [place] [address], [place] * HLA TYPING DNA HIGH RESOLUTION DQ (03/04/2024 4:13 PM NANOSCIENCE TECHNICIAN) Blood BLOOD SPECIMEN / Unknown Lab Venipuncture / Unknown 03/04/2024 4:13 PM NANOSCIENCE TECHNICIAN 03/05/2024 9:56 AM NANOSCIENCE TECHNICIAN Narrative [facility] ([employer]) - 04/29/2024 4:00 PM NANOSCIENCE TECHNICIAN See Scanned Report Cindy Garcia MD LAB - BLOOD BANK ORD ERABLES [facility] ([employer]) [address] [place] [address], [facility] * HLA TYPING DNA HIGH RESOLUTION B (03/04/2024 4:13 PM NANOSCIENCE TECHNICIAN) Blood BLOOD SPECIMEN / Unknown Lab Venipuncture / Unknown 03/04/2024 4:13 PM NANOSCIENCE TECHNICIAN 03/05/2024 9:56 AM NANOSCIENCE TECHNICIAN Narrative [facility] ([employer]) - 04/29/2024 4:00 PM NANOSCIENCE TECHNICIAN See Scanned Report Cindy Garcia MD LAB - BLOOD BANK ORD ERABLES Performing Organization Address City/[facility]/ZIP Co de Phone Number [facility] ([employer]) [facility] [place] [address], [facility] * HLA TYPING DNA HIGH RESOLUTION A (03/04/2024 4:13 PM NANOSCIENCE TECHNICIAN) Blood BLOOD SPECIMEN / Unknown Lab Venipuncture / Unknown 03/04/2024 4:13 PM NANOSCIENCE TECHNICIAN 03/05/2024 9:56 AM NANOSCIENCE TECHNICIAN Narrative [facility] ([employer]) - 04/29/2024 4:01 PM NANOSCIENCE TECHNICIAN See Scanned Report Cindy Garcia MD LAB - BLOOD BANK ORD ERABLES [facility] ([employer]) [address] [place] [address], [facility] * HLA TYPING DNA HIGH RESOLUTION C (03/04/2024 4:13 PM NANOSCIENCE TECHNICIAN) Blood BLOOD SPECIMEN / Unknown Lab Venipuncture / Unknown 03/04/2024 4:13 PM NANOSCIENCE TECHNICIAN 03/05/2024 9:56 AM NANOSCIENCE TECHNICIAN Narrative [facility] ([facility]) - 04/29/2024 4:01 PM NANOSCIENCE TECHNICIAN See Scanned Report Cindy Garcia MD LAB - BLOOD BANK ORD ERABLES [facility] ([facility]) [address] [place] [address], [facility] * CHROMOSOME ANALYSIS LEUKEMIA BLD (03/04/2024 4:13 PM NANOSCIENCE TECHNICIAN) [facility] Chromosome Analysis Leukemic Blood See Note Normal 03/23/2024 12:39 PM NANOSCIENCE TECHNICIAN [employer] ([facility]) Comment: Test Performed: Chromosome Analysis Specimen [...] FISH AML/PML and TAML MDS performed under [facility] accessions [id number] and [id number] were NORMAL. This result has been reviewed and approved by Margaret Roberson, PhD, [facility] INTERPRETIVE INFORMATION: Chromosome Analysis, ?Leukemic Blood This test was developed and its performance characteristics determined by [email or web address]. It has not been cleared or approved by the US Food and Drug Administration. This test was performed in a CLIA certified laboratory and is intended for clinical purposes. EER Chromosome Analysis Leukemic See Note 03/23/2024 12:39 PM NANOSCIENCE TECHNICIAN [facility] [employer] ([facility]) Comment: Authorized individuals can access the [facility] Enhanced Report using the following link: [email or web address] Performed By: [email or web address] [address] [place] [address] Telecommunication Tower Technician: Uche Morley MD, PhD CLIA Number: [id number] Blood BLOOD SPECIMEN / Unknown Lab Venipuncture / Unknown 03/04/2024 4:13 PM NANOSCIENCE TECHNICIAN 03/22/2024 5:28 PM NANOSCIENCE TECHNICIAN Cindy Garcia MD LAB - PATHOLOGY/CYTO LOGY ORDERABLES Performing Organization Address City/[facility]/ZIP Co de Phone Number [facility]) [address] [place] [address] * HIV-1 HIV-2 ANTIBODY + HIV P24 AG PANEL (New on 08/24) (03/04/2024 4:13 PM NANOSCIENCE TECHNICIAN) HIV Antigen/Antibod y 1 & 2 Non-reacti ve Non-react carlos 03/04/2024 5:12 PM NANOSCIENCE TECHNICIAN [facility] Comment:No Laboratory eviden ce of HIV infection. Blood BLOOD SPECIMEN / Unknown Lab Venipuncture / Unknown 03/04/2024 4:13 PM NANOSCIENCE TECHNICIAN 03/04/2024 4:23 PM NANOSCIENCE TECHNICIAN Cindy Garcia MD LAB - CHEMISTRY CHELI MONREAL [facility] [address] [place] [phone] [phone] * BCR-ABL1 CML+AML PCR QUANT PNL (03/04/2024 4:13 PM NANOSCIENCE TECHNICIAN) Interpretation TNP 03/13/2024 5:08 PM [facility] ([facility]) Comment: Unable to obtain results. Repeated efforts to analyze this specimen have been unsuccessful. LOW CONTROL GENE COPY NUMBER INDICATED SPECIMEN DEGRADATION. Director Review Comment 5:08 PM [facility] ([facility]) Comment: Dawood Sarabia, PhD, [facility] ?Director, Molecular Oncology ?[facility] ?[place] [address] ? Background Comment 03/13/2024 5:08 PM [facility] ([facility]) Comment: This assay can detect three [...] as indicated. Methodology Comment 03/13/2024 5:08 PM [facility] ([facility]) Comment: Total RNA is isolated from [...] developed and its performance characteristics determined by [employer]. It has not been cleared or approved by the Food and Drug Administration. Blood BLOOD SPECIMEN / Unknown Lab Venipuncture / Unknown 03/04/2024 4:13 PM NANOSCIENCE TECHNICIAN 03/04/2024 4:24 PM NANOSCIENCE TECHNICIAN Narrative [facility] ([facility]) - 03/13/2024 5:08 PM NANOSCIENCE TECHNICIAN Performed at: ??01 - [facility] [address] [facility], [place], [place] ??[id number] Housekeeper Nanny: Cinthya Roper [facility], Phone: ??[phone] Performed at: ??02 - [facility] [address], [place], [place] ??[id number] Housekeeper Nanny: Cinthya Roper [facility], Phone: ??[phone] Cindy Garcia MD LAB - CHEMISTRY CHELI MONREAL [facility] ([facility]) [address] [place] [id number] * TSH REFLEX FREE T4 (03/04/2024 4:13 PM NANOSCIENCE TECHNICIAN) Pathologist [facility] TSH 0.961 0.350 - 4.940 uIU/mL 03/04/2024 5:29 PM NANOSCIENCE TECHNICIAN [facility] Blood BLOOD SPECIMEN / Unknown Lab Venipuncture / Unknown 03/04/2024 4:13 PM NANOSCIENCE TECHNICIAN 03/04/2024 4:27 PM NANOSCIENCE TECHNICIAN Cindy Garcia MD LAB - CHEMISTRY CHELI MONREAL [address] [address] [phone] * RHEUMATOID FACTOR BLOOD QUANTITATIVE (03/04/2024 4:13 PM NANOSCIENCE TECHNICIAN) Pathologist [facility] Rheumatoid Factor <15 <30 IU/mL 03/04/2024 4:57 PM NANOSCIENCE TECHNICIAN [facility] Rheumatoid Factor Screen Negative Negative 03/04/2024 4:57 PM NANOSCIENCE TECHNICIAN [facility] Blood BLOOD SPECIMEN / Unknown Lab Venipuncture / Unknown 03/04/2024 4:13 PM NANOSCIENCE TECHNICIAN 03/04/2024 4:23 PM NANOSCIENCE TECHNICIAN Cindy Garcia MD LAB - CHEMISTRY CHELI MONREAL Performing Organization Address City/[facility]/ZIP Co de Phone Number [place] [phone], [facility] [phone] * CYTOMEGALOVIRUS ANTIBODY IGG BLOOD (03/04/2024 4:13 PM NANOSCIENCE TECHNICIAN) Cytomegalovirus Antibody IgG <0.20 <=0.70 U/mL 03/05/2024 9:27 PM NANOSCIENCE TECHNICIAN [employer] ([facility]) Comment: INTERPRETIVE INFORMATION: Cytomegalovirus Antibody, IgG [...] laboratory at the same time. Performed By: [email or web address] [address] [place] [address] Telecommunication Tower Technician: Uche Morley MD, PhD CLIA Number: [id number] Blood BLOOD SPECIMEN / Unknown Lab Venipuncture / Unknown 03/04/2024 4:13 PM NANOSCIENCE TECHNICIAN 03/04/2024 4:23 PM NANOSCIENCE TECHNICIAN Cindy Garcia MD LAB - CHEMISTRY CHELI MONREAL Performing Organization Address City/[facility]/ZIP Co de Phone Number [employer] ([address] * C-REACTIVE PROTEIN (03/04/2024 4:13 PM NANOSCIENCE TECHNICIAN) Pathologist [facility] C-Reactive Protein 0.5 <=0.5 mg/dL 03/04/2024 4:56 PM NANOSCIENCE TECHNICIAN [facility] Blood BLOOD SPECIMEN / Unknown Lab Venipuncture / Unknown 03/04/2024 4:13 PM NANOSCIENCE TECHNICIAN 03/04/2024 4:27 PM NANOSCIENCE TECHNICIAN Cindy Garcia MD LAB - CHEMISTRY CHELI MONREAL [address] [address], [facility] [phone] * MARLINE BLOOD SCREEN W/REFLEX TITER (03/04/2024 4:13 PM NANOSCIENCE TECHNICIAN) Pathologist [facility] MARLINE IgG None Detected None Detected 03/05/2024 11:42 PM NANOSCIENCE TECHNICIAN [employer] ([facility]) Comment: If suspicion of connective tissue disease is strong and MARLINE EIA is negative, consider testing for MARLINE by IFA ([id number]). INTERPRETIVE INFORMATION: Anti-Nuclear Antibodies (MARLINE), IgG by TOÑA Antinuclear Antibodies (MARLINE), IgG by TOÑA: MARLINE specimens are screened using enzyme-linked immunosorbent assay (TOÑA) methodology. All TOÑA results reported as Detected are further tested by indirect fluorescent assay (IFA) using HEp-2 substrate with an IgG-specific conjugate. The MARLINE TOÑA screen is designed to detect antibodies against dsDNA, histones, SS-A (Ro), SS-B (La), Pimentel, Pimentel/AUDIO VIDEO TECH, Scl-70, Mey-1, centromeric proteins, other antigens extracted from the HEp-2 cell nucleus. MARLINE TOÑA assays have been reported to have lower sensitivities than MARLINE IFA for systemic autoimmune rheumatic diseases (SARD). Negative results do not necessarily rule out SARD. Performed By: [email or web address] [address] [place] [address] Telecommunication Tower Technician: Uche Morley MD, PhD CLIA Number: [id number] Blood BLOOD SPECIMEN / Unknown Lab Venipuncture / Unknown 03/04/2024 4:13 PM NANOSCIENCE TECHNICIAN 03/04/2024 4:23 PM NANOSCIENCE TECHNICIAN Cindy Garcia MD LAB - CHEMISTRY CHELI MONREAL [facility] My1login [facility]) [address] * ZINC BLOOD (03/04/2024 4:13 PM NANOSCIENCE TECHNICIAN) Zinc 62.4 60.0 - 120.0 ug/dL 03/06/2024 6:35 AM NANOSCIENCE TECHNICIAN [facility] [employer] ([facility]) Comment: INTERPRETIVE INFORMATION: Zinc, Serum or [...] developed and its performance characteristics determined by [email or web address]. It has not been cleared or approved by the US Food and Drug Administration. This test was performed in a CLIA certified laboratory and is intended for clinical purposes. Performed By: [email or web address] [address] [place] [address] Telecommunication Tower Technician: Uche Morley MD, PhD CLIA Number: [id number] Blood BLOOD SPECIMEN / Unknown Lab Venipuncture / Unknown 03/04/2024 4:13 PM NANOSCIENCE TECHNICIAN 03/04/2024 4:23 PM NANOSCIENCE TECHNICIAN Cindy Garcia MD LAB - CHEMISTRY CHELI MONREAL [facility] My1login [facility]) [address] * COPPER BLOOD (03/04/2024 4:13 PM NANOSCIENCE TECHNICIAN) Copper 108.5 70.0 - 140.0 ug/dL 03/06/2024 6:35 AM NANOSCIENCE TECHNICIAN [facility] [employer] ([facility]) Comment: INTERPRETIVE INFORMATION: Copper, Serum or [...] developed and its performance characteristics determined by [employer]. It has not been cleared or approved by the US Food and Drug Administration. This test was performed in a CLIA certified laboratory and is intended for clinical purposes. Performed By: [place] [address] Telecommunication Tower Technician: Uche Morley MD, PhD CLIA Number: [id number] Blood BLOOD SPECIMEN / Unknown Lab Venipuncture / Unknown 03/04/2024 4:13 PM NANOSCIENCE TECHNICIAN 03/04/2024 4:23 PM NANOSCIENCE TECHNICIAN Cindy Garcia MD LAB - CHEMISTRY ORDE JOCELIN Performing Organization Address City/[facility]/ZIP Co de Phone Number [facility]) [address] [place] [address] * ERYTHROCYTE SEDIMENTATION RATE (03/04/2024 4:13 PM NANOSCIENCE TECHNICIAN) [facility] Erythrocyte Sedimentation Rate Westergren 14 0 - 20 MM/HR 03/04/2024 5:10 PM NANOSCIENCE TECHNICIAN [facility] Blood BLOOD SPECIMEN / Unknown Lab Venipuncture / Unknown 03/04/2024 4:13 PM NANOSCIENCE TECHNICIAN 03/04/2024 4:27 PM NANOSCIENCE TECHNICIAN Cindy Gacria MD LAB - HEMATOLOGY ORD ERABLES [address] [address], [facility] [phone] * HEPATITIS B SURFACE ANTIBODY (03/04/2024 4:13 PM NANOSCIENCE TECHNICIAN) Pathologist [facility] Hepatitis B Virus Surface Antibody Non-react carlos Non-react carlos 03/04/2024 5:12 PM [facility] Comment: < 8 mIU/mL Hepatitis B surface Antibody (HBsAb). Nonreactive for HBsAb - individual is considered not immune to Hepatitis B Virus infection. Hepatitis B Surface Antibody Quantitative 0.3 <8.0 mIU/mL 03/04/2024 5:12 PM [facility] Comment: Hepatitis B Surface Antibody Numeric Result Interpretation: ? Nonreactive: ?<8.0 mIU/mL ? Indeterminate: ??8.0 - 12.0 mIU/mL ? Reactive: ?>12.0 mIU/mL ? Blood BLOOD SPECIMEN / Unknown Lab Venipuncture / Unknown 03/04/2024 4:13 PM NANOSCIENCE TECHNICIAN 03/04/2024 4:23 PM NANOSCIENCE TECHNICIAN Cindy Garcia MD LAB - CHEMISTRY CHELI MONREAL Performing Organization Address [facility]/ZIP Co de Phone Number [address] [address], [employer] [phone] * HEPATITIS B CORE ANTIBODY TOTAL (03/04/2024 4:13 PM NANOSCIENCE TECHNICIAN) Pathologist [facility] HBc Antibody Total Non-reacti ve Non-reacti ve 03/04/2024 5:12 PM [facility] Blood BLOOD SPECIMEN / Unknown Lab Venipuncture / Unknown 03/04/2024 4:13 PM NANOSCIENCE TECHNICIAN 03/04/2024 4:23 PM NANOSCIENCE TECHNICIAN Cindy Garcia MD LAB - CHEMISTRY CHELI MONREAL Performing Organization Address [facility]/ZIP Co de Phone Number [address] [address], [facility] [phone] * FOLATE (03/04/2024 4:13 PM NANOSCIENCE TECHNICIAN) Pathologist [facility] Folate 17.7 7.0 - 31.4 ng/mL 03/04/2024 5:29 PM NANOSCIENCE TECHNICIAN [facility] Blood BLOOD SPECIMEN / Unknown Lab Venipuncture / Unknown 03/04/2024 4:13 PM NANOSCIENCE TECHNICIAN 03/04/2024 4:27 PM NANOSCIENCE TECHNICIAN Cindy Garcia MD LAB - CHEMISTRY CHELI MONREAL [address] [address], [place] [phone] * VITAMIN B12 (03/04/2024 4:13 PM NANOSCIENCE TECHNICIAN) Vitamin B12 524 213 - 816 pg/mL 03/04/2024 5:29 PM NANOSCIENCE TECHNICIAN [facility] Blood BLOOD SPECIMEN / Unknown Lab Venipuncture / Unknown 03/04/2024 4:13 PM NANOSCIENCE TECHNICIAN 03/04/2024 4:27 PM NANOSCIENCE TECHNICIAN Cindy Garcia MD LAB - CHEMISTRY CHELI MONREAL Performing Organization Address City/[facility]/ZIP Co de Phone Number [address] [address], [place] [phone] * (ABNORMAL) IRON + TRANSFERRIN PANEL [w/Transferrin Sat % + TIBC] (03/04/2024 4:13 PM NANOSCIENCE TECHNICIAN) Iron 31(L) 50 - 175 ug/dL 03/04/2024 4:53 PM [facility] Transferrin 257 174 - 382 mg/dL 03/04/2024 4:53 PM [facility] Transferrin Saturation % 10(L) 16 - 50 % 03/04/2024 4:53 PM [facility] TIBC Calculated 321 240 - 450 ug/dL 03/04/2024 4:53 PM [facility] Blood BLOOD SPECIMEN / Unknown Lab Venipuncture / Unknown 03/04/2024 4:13 PM NANOSCIENCE TECHNICIAN 03/04/2024 4:23 PM NANOSCIENCE TECHNICIAN Cindy Garcia MD LAB - CHEMISTRY CHELI MONREAL [address] [place] [address], [place] [phone] * HEPATITIS C ANTIBODY (03/04/2024 4:13 PM NANOSCIENCE TECHNICIAN) Pathologist [facility] Hepatitis C Antibody Non-react carlos Non-reac tive 03/04/2024 5:12 PM NANOSCIENCE TECHNICIAN [facility] Comment:Hepatitis C Antibody screen indicates no serologic evidence of past or current infection with Hepatitis C Virus. Patients with unexplained liver disease who are immunocompromised or suspected of having acute Hepatitis C infection may benefit from Nucleic Acid Test (YUSRA) for Hepatitis C Viral RNA to confirm Hepatitis C status. Blood BLOOD SPECIMEN / Unknown Lab Venipuncture / Unknown 03/04/2024 4:13 PM NANOSCIENCE TECHNICIAN 03/04/2024 4:23 PM NANOSCIENCE TECHNICIAN Cindy Garcia MD LAB - CHEMISTRY CHELI MONREAL [address] [address], [facility] [phone] * (ABNORMAL) FERRITIN (03/04/2024 4:13 PM NANOSCIENCE TECHNICIAN) [facility] Ferritin 21(L) 22 - 275 ng/mL 03/04/2024 5:12 PM NANOSCIENCE TECHNICIAN [facility] Blood BLOOD SPECIMEN / Unknown Lab Venipuncture / Unknown 03/04/2024 4:13 PM NANOSCIENCE TECHNICIAN 03/04/2024 4:23 PM NANOSCIENCE TECHNICIAN Cindy Garcia MD LAB - CHEMISTRY CHELI MONREAL [address] [address], [place] [phone] from Last 3 Months Advance Directives * Full Code (Latest Code Status on File) Date Activated Date Inactivated Comments 03/13/2024 9:41 PM 03/23/2024 2:56 PM Care Teams 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
--- OUTSIDE RECORDS SUMMARY | 2024-05-02 14:11 | XMS_ITS | Referral Summary ---
Author Organization [facility] Address [address] [place] [address] Care Team Providers Care Radiagraph Operator Name Role Phone Timothy Banks MD Primary Care Provider Cindy Garcia MD Unavailable Source Comments [facility],non-owned Affiliates and Associated Physician Practices is amultiple site organization consisting of ambulatory clinics and hospital sitesin [place], [place], [place] and [place]. This disclosure is being madepursuant to the Care Everywhere program and may not contain all information available regarding this patient. Last updated 17.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) 04/22/2024 Travel 04/22/2024 12:45 PM HAND WEAVER - 04/22/2024 11:59 PM HAND WEAVER Hospital Encounter [facility] EKG/HOLTER [address] [place] [phone] Cindy Garcia MD Discharge Disposition: Home or Self Care 04/22/2024 Refill [facility] - Hematology/Oncolog y [address] [place] [phone] Cindy Garcia MD Refill Request 04/22/2024 Orders Only [facility] - Hematology/Oncolog y [address] [facility] [place] [address] Tg Amezcua, RN 04/22/2024 Orders Only [facility] - Hematology/Oncolog y [address] [place] [phone] Tg Amezcua, RN 04/22/2024 Telephone [facility] - Hematology/Oncolog y [address] [place] [phone] Nikole Chou, RN Appointment 04/22/2024 9:38 AM HAND WEAVER - 04/22/2024 12:44 PM HAND WEAVER Hospital Encounter [facility] INF[facility]ION [facility] [address] [place] [phone] Unknown, Provider Discharge Disposition: Home or Self Care 04/19/2024 Travel 04/19/2024 9:58 AM HAND WEAVER - 04/19/2024 11:59 PM HAND WEAVER Hospital Encounter [facility] [address] [place] [phone] Unknown, Provider Discharge Disposition: Home or Self Care 04/18/2024 Travel 04/18/2024 10:30 AM HAND WEAVER [facility] - Hematology/Oncolog y [address] [place] [phone] Cindy Garcia MD 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) 04/18/2024 9:32 AM HAND WEAVER - 04/18/2024 11:59 PM HAND WEAVER Hospital Encounter [facility] [address] [place] [phone] Unknown, Provider Discharge Disposition: Home or Self Care 04/17/2024 10:32 AM HAND WEAVER - 04/17/2024 11:59 PM HAND WEAVER Hospital Encounter [facility] [address] [place] [phone] Timothy Banks MD Discharge Disposition: Home or Self Care 04/16/2024 10:00 AM HAND WEAVER - 04/16/2024 11:59 PM HAND WEAVER Hospital Encounter [facility] [address] [place] [phone] Unknown, Provider Discharge Disposition: Home or Self Care 04/15/2024 Orders Only [facility] BMT CLINIC [address] [place] [phone] Cindy Garcia MD 04/11/2024 5:49 AM HAND WEAVER - 04/11/2024 11:05 AM HAND WEAVER Hospital Encounter [facility] HARRY OP [address] [place] [address] Cindy Garcia MD [facility] Radiology Discharge Disposition: Home or Self Care 04/10/2024 Orders Only [facility] [address] [place] [phone] Cindy Garcia MD Chronic kidney disease, unspecified CKD stage 04/05/2024 Orders Only [facility] [address] [place] [phone] Cindy Garcia MD 04/04/2024 Telephone [facility] - Hematology/Oncolog y [address] [place] [phone] Cindy Garcia MD Medication Prior Auth Request 04/01/2024 Orders Only [facility] [address] [place] [phone] Cindy Garcia MD Tumor lysis syndrome (HCC) 04/01/2024 Travel 04/01/2024 3:09 PM HAND WEAVER - 04/01/2024 11:59 PM HAND WEAVER Hospital Encounter [facility] DRAW[facility] [address] [place] [address], [address] [place] [address] Discharge Disposition: Home or Self Care 04/01/2024 Orders Only [facility] [address] [place] [phone] Cindy Garcia MD 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) 04/01/2024 2:00 PM HAND WEAVER Office Visit [facility] - Hematology/Oncolog y [address] [place] [phone] Cindy Garcia MD 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) 03/25/2024 Orders Only [facility] [address] [place] [phone] Ekta Ferro, NUTRITIONIST-CORONER TRANSPORT TECHNICIAN 03/25/2024 Orders Only [facility] - Hematology/Oncolog y [address] [place] [address] Cindy Garcia MD Acute myeloid leuk w multilin dysplasia, 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 [address] [place], [place] [phone] Cindy Garcia MD Medication Monitoring (VENCLEXTA 100 MG TABLET/) 03/14/2024 Telephone [facility] - Hematology/Oncolog y [address] [place] [address] Cindy Garcia MD Medication Prior Auth Request 03/14/2024 Telephone [facility] - Hematology/Oncolog y [address] [place] [address] Cindy Garcia MD Medication Prior Auth Request 03/14/2024 Telephone [facility] - Hematology/Oncolog y [address] [place] [address] Cindy Garcia MD Medication Prior Auth Request 03/13/2024 Travel 03/13/2024 Telephone [facility] BMT CLINIC [address] [place] [address] Cindy Garcia MD Medication Prior Auth Request 03/13/2024 Orders Only [facility] PHARMACY [address] [place] [phone] Sammie Hartman, PharmD 03/13/2024 Orders Only [facility] B[facility] CL[facility]IC [address] [place] [address] Cindy Garcia MD 03/04/2024 Travel 03/04/2024 3:35 PM HAND WEAVER - 03/04/2024 11:59 PM HAND WEAVER Hospital Encounter [facility] [address] [facility] [place] [address] Discharge Disposition: Home or Self Care 03/04/2024 Orders Only [facility] B[facility] CL[facility] [address] [place] [address] Cindy Garcia MD MDS (myelodysplastic syndrome) (HCC) 03/04/2024 2:00 PM HAND WEAVER Office Visit [facility] - Hematology/Oncolog y [address] [place] [phone] Cindy Garcia MD MDS (myelodysplastic syndrome) (HCC) (Primary Dx) 03/01/2024 Orders Only [facility] [address] [place] [address] Cindy Garcia MD Neutropenia, unspecified type (HCC) 03/01/2024 Telephone [facility] - Hematology/Oncolog y [facility] [place] [phone] Cindy Mansfield MA Appointment (Patient has comfirmed) 02/13/2024 Lab Requisition [facility] - Pathology Lab [address] [place] [address] Rommel Dinh MD Illness, unspecified 02/12/2024 Lab Requisition [facility] - Pathology Lab [address] [place] [address] Rommel Dinh MD Decreased white blood cell [...] for 90 days 90 tablet 2 04/18/2024 Active venetoclax (Venclexta) 100 MG tabletIndication s:Acute [...] and heating? Not hard at all 03/13/2024 [facility] - Occupational [...] any time in the past 12 m [facility], were you homeless or living in a long term (including now)? No 03/13/2024 Sex and Gender Information Value Date Recorded Sex Assigned at Male 03/05/2024 8:04 AM HAND WEAVER Gender Identity Male 03/05/2024 8:04 AM HAND WEAVER Sexual Orientation Straight 03/05/2024 8: 04 AM HAND WEAVER Last Filed Vital Signs Vital Sign Reading Time Taken Comments Blood Pressure 126/81 04/22/2024 9:47 AM HAND WEAVER Pulse 61 04/22/2024 9:47 AM HAND WEAVER Temperature 36.2 ??C (97.2 ??F) 04/22/2024 9:47 AM CS T Respiratory Rate 20 04/19/2024 10:07 AM HAND WEAVER Oxygen Saturation 100% 04/22/2024 9:47 AM HAND WEAVER Inhaled Oxygen Concentration - - Weight 99 kg (218 lb 3.2 oz) 04/22/2024 9:47 AM HAND WEAVER Height 182.9 cm (6') 04/22/2024 9:47 AM HAND WEAVER Body Mass Index 29.59 04/22/2024 9:47 AM HAND WEAVER Functional Status Functional Status Response Date of [...] st Contact Info) Description 05/13/2024 10:30 AM HAND WEAVER Appointment [facility] [address] [place] [phone] 05/14/2024 9:00 AM HAND WEAVER Appointment [facility] [address] [place] [phone] 05/15/2024 10:00 AM HAND WEAVER Appointment [facility] [address] [place] [phone] 05/15/2024 1:30 PM HAND WEAVER Appointment [facility] [address] [place] [phone] Cindy Garcia MD [address] [place] [phone] 05/16/2024 9:00 AM HAND WEAVER Appointment [facility] [address] [place] [phone] 05/17/2024 9:00 AM HAND WEAVER Appointment [facility] [address] [place] [phone] Medical Devices Implanted Type Area Cloth Doffer Device Identifier Shelf Expiration Date Model / Serial / Lot Port Implinfn Powerport Clrvu Argd Kandy Implanted:Qty : 1 on 04/11/2024 by Davian Marshall MD at [facility] Catheters Right: Chest Wall [employer] [id number] 02/07/2025 [id number] / / [id number] Procedures Procedure Name Priority Date/Time Associated Diagnosis Comments EKG 12-LEAD Routine 04/22/2024 1:27 PM HAND WEAVER 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) DIFFERENTIAL MANUAL Routine 04/22/2024 1 0:11 AM HAND WEAVER Acute myeloid leuk w multilin dysplasia, 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) COMPREHENSIVE METABOLIC PANEL Routine 04/22/2024 10:11 AM HAND WEAVER Acute myeloid leuk w multilin dysplasia, 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) CBC W AUTO DIFFERENTIAL Routine 04/22/19 10:11 AM HAND WEAVER Acute myeloid leuk w multilin dysplasia, 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) COMPREHENSIVE METABOLIC PANEL Routine 04/18/2024 9:48 AM HAND WEAVER Acute myeloid leuk w multilin dysplasia, 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) CBC W AUTO DIFFERENTIAL Routine 04/18/19 25 9:48 AM HAND WEAVER Acute myeloid leuk w multilin dysplasia, 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) QUANTIFERON-TB GOLD PLUS 4-TUBE Routine 04/16/2024 1:43 PM HAND WEAVER LDH BLOOD Routine 04/16/2024 10:26 AM HAND WEAVER Tumor lysis syndrome (HCC) COMPREHENSIVE METABOLIC PANEL Routine 04/16/2024 10:26 AM HAND WEAVER Acute myeloid leuk w multilin dysplasia, 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) CBC W AUTO DIFFERENTIAL Routine 04/16/19 10:26 AM HAND WEAVER Acute myeloid leuk w multilin dysplasia, 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) COMPREHENSIVE METABOLIC PANEL Routine 04/11/2024 10:54 AM HAND WEAVER Acute myeloid leuk w multilin dysplasia, 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) CBC W AUTO DIFFERENTIAL Routine 04/11/19 10:54 AM HAND WEAVER Acute myeloid leuk w multilin dysplasia, 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) IR TIM CATH INSERT Routine 04/11/2024 9:45 AM HAND WEAVER 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) PT-INR [facility] STAT 04/11/2024 7:20 AM HAND WEAVER 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) MDS (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, 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) PHOSPHORUS BLOOD Routine 04/01/2024 3:1 2 PM HAND WEAVER Tumor lysis syndrome (HCC) URIC ACID BLOOD Routine 04/01/2024 3:12 PM HAND WEAVER Tumor lysis syndrome (HCC) DIFFERENTIAL MANUAL Routine 04/01/2024 3 :12 PM HAND WEAVER 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) MAGNESIUM BLOOD Routine 04/01/2024 3:12 PM HAND WEAVER 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) ERYTHROPOIETIN Routine 04/01/2024 3:12 PM HAND WEAVER 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) SOLUBLE TRANSFERRIN RECEPTOR Routine 04/01/2024 3:12 PM HAND WEAVER 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) COMPREHENSIVE METABOLIC PANEL Routine 04/01/2024 3:12 PM HAND WEAVER 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) CBC W AUTO DIFFERENTIAL Routine 04/01/20 24 3:12 PM HAND WEAVER 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) LAB RESULTS ORDER 03/25/2024 DIFFERENTIAL MANUAL AM Draw 03/23/2024 1 2:25 AM HAND WEAVER MAGNESIUM BLOOD Routine 03/23/2024 12:25 AM HAND WEAVER URIC ACID BLOOD Routine 03/23/2024 12:25 AM HAND WEAVER PHOSPHORUS BLOOD Routine 03/23/2024 12:2 5 AM HAND WEAVER COMPREHENSIVE METABOLIC PANEL Routine 03/23/2024 12:25 AM HAND WEAVER LDH BLOOD Routine 03/23/2024 12:25 AM HAND WEAVER PTT [facility] AM Draw 03/23/2024 12:25 AM HAND WEAVER PT-INR [facility] AM Draw 03/23/2024 12:25 AM HAND WEAVER CBC W AUTO DIFFERENTIAL AM Draw 03/23/20 12:25 AM HAND WEAVER MAGNESIUM BLOOD Routine 03/22/2024 6:20 PM HAND WEAVER URIC ACID BLOOD Routine 03/22/2024 6:20 PM HAND WEAVER PHOSPHORUS BLOOD Routine 03/22/2024 6:20 PM HAND WEAVER COMPREHENSIVE METABOLIC PANEL Routine 03/22/2024 6:20 PM HAND WEAVER LDH BLOOD Routine 03/22/2024 6:20 PM HAND WEAVER DIFFERENTIAL MANUAL AM Draw 03/22/2024 6 :58 AM HAND WEAVER MAGNESIUM BLOOD Routine 03/22/2024 6:58 AM HAND WEAVER URIC ACID BLOOD Routine 03/22/2024 6:58 AM HAND WEAVER PHOSPHORUS BLOOD Routine 03/22/2024 6:58 AM HAND WEAVER COMPREHENSIVE METABOLIC PANEL Routine 03/22/2024 6:58 AM HAND WEAVER LDH BLOOD Routine 03/22/2024 6:58 AM HAND WEAVER PTT [facility] AM Draw 03/22/2024 6:58 AM HAND WEAVER PT-INR [facility] AM Draw 03/22/2024 6:58 AM HAND WEAVER CBC W AUTO DIFFERENTIAL AM Draw 03/22/20 24 6:58 AM HAND WEAVER MAGNESIUM BLOOD Routine 03/21/2024 3:47 AM HAND WEAVER URIC ACID BLOOD Routine 03/21/2024 3:47 AM HAND WEAVER PHOSPHORUS BLOOD Routine 03/21/2024 3:47 AM HAND WEAVER COMPREHENSIVE METABOLIC PANEL Routine 03/21/2024 3:47 AM HAND WEAVER LDH BLOOD Routine 03/21/2024 3:47 AM HAND WEAVER PTT [facility] AM Draw 03/21/2024 3:47 AM HAND WEAVER PT-INR [facility] AM Draw 03/21/2024 3:47 AM HAND WEAVER CBC W AUTO DIFFERENTIAL AM Draw 03/21/20 24 3:47 AM HAND WEAVER MAGNESIUM BLOOD Routine 03/20/2024 4:07 PM HAND WEAVER URIC ACID BLOOD Routine 03/20/2024 4:07 PM HAND WEAVER PHOSPHORUS BLOOD Routine 03/20/2024 4:07 PM HAND WEAVER COMPREHENSIVE METABOLIC PANEL Routine 03/20/2024 4:07 PM HAND WEAVER LDH BLOOD Routine 03/20/2024 4:07 PM HAND WEAVER DIFFERENTIAL MANUAL AM Draw 03/20/2024 6 :28 AM HAND WEAVER LDH BLOOD Routine 03/20/2024 6:28 AM HAND WEAVER PTT [facility] AM Draw 03/20/2024 6:28 AM HAND WEAVER PT-INR [facility] AM Draw 03/20/2024 6:28 AM HAND WEAVER URIC ACID BLOOD Routine 03/20/2024 6:28 AM HAND WEAVER PHOSPHORUS BLOOD Routine 03/20/2024 6:28 AM HAND WEAVER MAGNESIUM BLOOD Routine 03/20/2024 6:28 AM HAND WEAVER COMPREHENSIVE METABOLIC PANEL AM Draw 03/20/2024 6:28 AM HAND WEAVER CBC W AUTO DIFFERENTIAL AM Draw 03/20/20 6:28 AM HAND WEAVER DIFFERENTIAL MANUAL AM Draw 03/19/2024 6 :23 AM HAND WEAVER LDH BLOOD Routine 03/19/2024 6:23 AM HAND WEAVER PTT [facility] AM Draw 03/19/2024 6:23 AM HAND WEAVER PT-INR [facility] AM Draw 03/19/2024 6:23 AM HAND WEAVER URIC ACID BLOOD Routine 03/19/2024 6:23 AM HAND WEAVER PHOSPHORUS BLOOD Routine 03/19/2024 6:23 AM HAND WEAVER MAGNESIUM BLOOD Routine 03/19/2024 6:23 AM HAND WEAVER COMPREHENSIVE METABOLIC PANEL AM Draw 03/19/2024 6:23 AM HAND WEAVER CBC W AUTO DIFFERENTIAL AM Draw 03/19/20 24 6:23 AM HAND WEAVER EKG 12-LEAD Routine 03/18/2024 1:48 PM HAND WEAVER Inverted T wave PATHOLOGY PERIPHERAL SMEAR REVIEW AM Draw 03/18/2024 8:33 AM HAND WEAVER DIFFERENTIAL MANUAL AM Draw 03/18/2024 8 :33 AM HAND WEAVER LDH BLOOD Routine 03/18/2024 8:33 AM HAND WEAVER PTT [facility] AM Draw 03/18/2024 8:33 AM HAND WEAVER PT-INR [facility] AM Draw 03/18/2024 8:33 AM HAND WEAVER URIC ACID BLOOD Routine 03/18/2024 8:33 AM HAND WEAVER PHOSPHORUS BLOOD Routine 03/18/2024 8:33 AM HAND WEAVER MAGNESIUM BLOOD Routine 03/18/2024 8:33 AM HAND WEAVER COMPREHENSIVE METABOLIC PANEL AM Draw 03/18/2024 8:33 AM HAND WEAVER CBC W AUTO DIFFERENTIAL AM Draw 03/18/20 24 8:33 AM HAND WEAVER DIFFERENTIAL MANUAL AM Draw 03/17/2024 5 :28 AM HAND WEAVER LDH BLOOD Routine 03/17/2024 5:28 AM HAND WEAVER PTT [facility] AM Draw 03/17/2024 5:28 AM HAND WEAVER PT-INR [facility] AM Draw 03/17/2024 5:28 AM HAND WEAVER URIC ACID BLOOD Routine 03/17/2024 5:28 AM HAND WEAVER PHOSPHORUS BLOOD Routine 03/17/2024 5:28 AM HAND WEAVER MAGNESIUM BLOOD Routine 03/17/2024 5:28 AM HAND WEAVER COMPREHENSIVE METABOLIC PANEL AM Draw 03/17/2024 5:28 AM HAND WEAVER CBC W AUTO DIFFERENTIAL AM Draw 03/17/20 24 5:28 AM HAND WEAVER DIFFERENTIAL MANUAL AM Draw 03/16/2024 1 2:04 AM HAND WEAVER LDH BLOOD Routine 03/16/2024 12:04 AM HAND WEAVER PTT [facility] AM Draw 03/16/2024 12:04 AM HAND WEAVER PT-INR [facility] AM Draw 03/16/2024 12:04 AM HAND WEAVER URIC ACID BLOOD Routine 03/16/2024 12:04 AM HAND WEAVER PHOSPHORUS BLOOD Routine 03/16/2024 12:0 4 AM HAND WEAVER MAGNESIUM BLOOD Routine 03/16/2024 12:04 AM HAND WEAVER COMPREHENSIVE METABOLIC PANEL AM Draw 03/16/2024 12:04 AM HAND WEAVER CBC W AUTO DIFFERENTIAL AM Draw 03/16/20 24 12:04 AM HAND WEAVER ECHO COMPLETE W CONTRAST Routine 03/15/2024 1:47 PM HAND WEAVER MDS (myelodysplastic syndrome) (HCC) MYELOID MALIGNANCIES MUTATION PNL Routine 03/15/2024 9:05 AM HAND WEAVER MDS (myelodysplastic syndrome) (HCC) FISH MDS PANEL BLOOD OR BONE MARROW Routine 03/15/2024 9:05 AM HAND WEAVER MDS (myelodysplastic syndrome) (HCC) FISH AML PANEL BLOOD OR BM RFLX PML/DANTE Routine 03/15/2024 9:05 AM HAND WEAVER MDS (myelodysplastic syndrome) (HCC) FLOW CYTOMETRY BONE MARROW Routine 03/15/2024 9:05 AM HAND WEAVER MDS (myelodysplastic syndrome) (HCC) BONE MARROW BIOPSY (STL) Routine 03/15/2024 9:05 AM HAND WEAVER MDS (myelodysplastic syndrome) (HCC) FISH PML/DANTE PANEL Routine 03/15/2024 9 :05 AM HAND WEAVER MDS (myelodysplastic syndrome) (HCC) CHROMOSOME ANALYSIS BONE MARROW PANEL Routine 03/15/2024 9:05 AM HAND WEAVER MDS (myelodysplastic syndrome) (HCC) LAB MISC TEST (NOT BLOOD) Routine 03/15/2024 9:05 AM HAND WEAVER LAB MISC TEST (NOT BLOOD) Routine 03/15/2024 9:05 AM HAND WEAVER LAB MISC TEST (NOT BLOOD) Routine 03/15/2024 9:05 AM HAND WEAVER DIFFERENTIAL MANUAL AM Draw 03/15/2024 7 :53 AM HAND WEAVER LDH BLOOD Routine 03/15/2024 7:53 AM HAND WEAVER PTT [facility] AM Draw 03/15/2024 7:53 AM HAND WEAVER PT-INR [facility] AM Draw 03/15/2024 7:53 AM HAND WEAVER URIC ACID BLOOD Routine 03/15/2024 7:53 AM HAND WEAVER PHOSPHORUS BLOOD Routine 03/15/2024 7:53 AM HAND WEAVER MAGNESIUM BLOOD Routine 03/15/2024 7:53 AM HAND WEAVER COMPREHENSIVE METABOLIC PANEL AM Draw 03/15/2024 7:53 AM HAND WEAVER CBC W AUTO DIFFERENTIAL AM Draw 03/15/20 24 7:53 AM HAND WEAVER EKG 12-LEAD STAT 03/14/2024 12:30 PM HAND WEAVER MDS (myelodysplastic syndrome) (HCC) FLOW CYTOMETRY BLOOD PROFILE Routine 03/14/2024 10:32 AM HAND WEAVER MDS (myelodysplastic syndrome) (HCC) DIFFERENTIAL MANUAL STAT 03/13/2024 1 1:26 PM HAND WEAVER LDH BLOOD Routine 03/13/2024 11:26 PM HAND WEAVER PTT [facility] Routine 03/13/2024 11:26 PM HAND WEAVER PT-INR [facility] Routine 03/13/2024 11:26 PM HAND WEAVER FIBRINOGEN ACTIVITY Routine 03/13/2024 1 1:26 PM HAND WEAVER D-DIMER Routine 03/13/2024 11:26 PM HAND WEAVER URIC ACID BLOOD Routine 03/13/2024 11:26 PM HAND WEAVER PHOSPHORUS BLOOD Routine 03/13/2024 11:2 6 PM HAND WEAVER MAGNESIUM BLOOD Routine 03/13/2024 11:26 PM HAND WEAVER COMPREHENSIVE METABOLIC PANEL STAT 03/13/2024 11:26 PM HAND WEAVER CBC W AUTO DIFFERENTIAL STAT 03/13/20 24 11:26 PM HAND WEAVER QUINN-RICHMOND VIRUS QUANT BLOOD STL Routine 03/13/2024 11:26 PM HAND WEAVER CYTOMEGALOVIRUS (CMV) QUANTITATIVE PLASMA Routine 03/13/2024 11:26 PM HAND WEAVER CHROMOSOME ANALYSIS LEUKEMIA BLD Routine 03/04/2024 4:13 PM HAND WEAVER MDS (myelodysplastic syndrome) (HCC) FISH PML/DANTE PANEL Routine 03/04/2024 4 :13 PM HAND WEAVER MDS (myelodysplastic syndrome) (HCC) FISH AML PANEL BLOOD OR BM RFLX PML/DANTE Routine 03/04/2024 4:13 PM HAND WEAVER MDS (myelodysplastic syndrome) (HCC) FISH AML+MDS PANEL BLOOD OR BONE MARROW Routine 03/04/2024 4:13 PM HAND WEAVER MDS (myelodysplastic syndrome) (HCC) MYELOID MALIGNANCIES MUTATION PNL STAT 03/04/2024 4:13 PM HAND WEAVER MDS (myelodysplastic syndrome) (HCC) HLA TYPING LOW/HIGH RESOLUTION DPB1 Routine 03/04/2024 4:13 PM HAND WEAVER MDS (myelodysplastic syndrome) (HCC) HLA TYPING DNA HIGH RESOLUTION DR Routine 03/04/2024 4:13 PM HAND WEAVER MDS (myelodysplastic syndrome) (HCC) HLA TYPING DNA HIGH RESOLUTION B Routine 03/04/2024 4:13 PM HAND WEAVER MDS (myelodysplastic syndrome) (HCC) HLA TYPING DNA HIGH RESOLUTION C Routine 03/04/2024 4:13 PM HAND WEAVER MDS (myelodysplastic syndrome) (HCC) HLA TYPING DNA HIGH RESOLUTION DQ Routine 03/04/2024 4:13 PM HAND WEAVER MDS (myelodysplastic syndrome) (HCC) HLA TYPING DNA HIGH RESOLUTION A Routine 03/04/2024 4:13 PM HAND WEAVER MDS (myelodysplastic syndrome) (HCC) HLA TYPING DNA LOW RESOLUTION DR,DQ Routine 03/04/2024 4:13 PM HAND WEAVER MDS (myelodysplastic syndrome) (HCC) HLA TYPING DNA LOW RESOLUTION A,B,C Routine 03/04/2024 4:13 PM HAND WEAVER MDS (myelodysplastic syndrome) (HCC) HLA TYPING DNA HIGH RES Routine 03/04/20 4:13 PM HAND WEAVER MDS (myelodysplastic syndrome) (HCC) DIFFERENTIAL MANUAL Routine 03/04/2024 4 :13 PM HAND WEAVER Neutropenia, unspecified type (HCC) BCR-ABL1 CML+AML PCR QUANT PNL Routine 03/04/2024 4:13 PM HAND WEAVER MDS (myelodysplastic syndrome) (HCC) CYTOMEGALOVIRUS ANTIBODY IGG BLOOD Routine 03/04/2024 4:13 PM HAND WEAVER MDS (myelodysplastic syndrome) (HCC) HEPATITIS C ANTIBODY Routine 03/04/2024 4:13 PM HAND WEAVER Neutropenia, unspecified type (HCC) HEPATITIS B SURFACE ANTIBODY Routine 03/04/2024 4:13 PM HAND WEAVER Neutropenia, unspecified type (HCC) HIV-1 HIV-2 ANTIBODY + HIV P24 AG PANEL Routine 03/04/2024 4:13 PM HAND WEAVER Neutropenia, unspecified type (HCC) ERYTHROCYTE SEDIMENTATION RATE Routine 03/04/2024 4:13 PM HAND WEAVER Neutropenia, unspecified type (HCC) C-REACTIVE PROTEIN Routine 03/04/2024 4: 13 PM HAND WEAVER Neutropenia, unspecified type (HCC) RHEUMATOID FACTOR BLOOD QUANTITATIVE Routine 03/04/2024 4:13 PM HAND WEAVER Neutropenia, unspecified type (HCC) MARLINE BLOOD SCREEN W/REFLEX TITER Routine 03/04/2024 4:13 PM HAND WEAVER Neutropenia, unspecified type (HCC) FERRITIN Routine 03/04/2024 4:13 PM HAND WEAVER Neutropenia, unspecified type (HCC) IRON + TRANSFERRIN PANEL Routine 03/04/2024 4:13 PM HAND WEAVER Neutropenia, unspecified type (HCC) TSH REFLEX FREE T4 Routine 03/04/2024 4: 13 PM HAND WEAVER Neutropenia, unspecified type (HCC) ZINC BLOOD Routine 03/04/2024 4:13 PM HAND WEAVER Neutropenia, unspecified type (HCC) COPPER BLOOD Routine 03/04/2024 4:13 PM HAND WEAVER Neutropenia, unspecified type (HCC) FOLATE Routine 03/04/2024 4:13 PM HAND WEAVER Neutropenia, unspecified type (HCC) VITAMIN B12 Routine 03/04/2024 4:13 PM HAND WEAVER Neutropenia, unspecified type (HCC) COMPREHENSIVE METABOLIC PANEL Routine 03/04/2024 4:13 PM HAND WE[employer]ER Neutropenia, unspecified type (HCC) CBC W AUTO DIFFERENTIAL Routine 03/04/20 4:13 PM HAND WEAVER Neutropenia, unspecified type (HCC) HEPATITIS B CORE ANTIBODY TOTAL Routine 03/04/2024 4:13 PM HAND WEAVER Neutropenia, unspecified type (HCC) BONE MARROW BIOPSY (STL) Routine 02/12/2024 9:20 AM HAND WEAVER Illness, unspecified FLOW CYTOMETRY BONE MARROW Routine 02/12/2024 9:20 AM HAND WEAVER Decreased white blood cell count, unspecified from Last 3 Months Results * EKG 12-LEAD - HOSPITAL PERFORMED (04/22/2024 1:27 PM HAND WEAVER) Only the most recent of3 resultswithin the time period is included. Ventricular Rate 61 BPM [facility] MUSE Atrial Rate 61 BPM [facility] P-R Interval 112 ms [facility]USE QRS Duration ms 126 ms [facility] Q-T Interval ms 476 ms [facility] MUSE QTC Calculation (Bezet) 479 ms [facility] MUSE Calculated P [place] 84 degrees [facility] MUSE Calculated R [place] 36 degrees [facility] MUSE Calculated T [place] -163 degrees [facility] MUSE Interpretation EKG NORMAL SINUS RHYTHM NON-SPECIFIC INTRA-VENTRICULA R CONDUCTION BLOCK T WAVE ABNORMALITY, CONSIDER INFERIOR ISCHEMIA T WAVE ABNORMALITY, CONSIDER ANTEROLATERAL ISCHEMIA ABNORMAL ECG WHEN COMPARED WITH ECG OF 18-MAR-2024 13:48, NO SIGNIFICANT CHANGE WAS FOUND Confirmed by MAR ??HANSEL MARTINEZ ([id number]) on 04/23/2024 8:31:57 AM [facility] MUSE 04/22/2024 1:27 PM HAND WEAVER 04/23/2024 8:31 AM [facility] Cindy Garcia MD ECG ORDERABLES [facility] MUSE * (ABNORMAL) DIFFERENTIAL MANUAL (04/22/2024 10:11 AM [facility]) Only the most recent of12 resultswithin the time period is included. Neutrophil % 37(L) 41 - 74 % 04/22/2024 11:21 AM [facility] Lymphocyte % 39 17 - 47 % 04/22/2024 11:21 AM [facility] Monocyte % 22(H) 3 - 11 % 04/22/2024 11:21 AM [facility] Eosinophil % 1 0 - 7 % 04/22/2024 11:21 AM [facility] Metamyelocyte % 1(H) 0% % 11:21 AM [facility] Neutrophil Absolute 0.22(L) 1.60 - 7.50 x10E9/L 04/22/2024 11:21 AM [facility] Lymphocyte Absolute 0.23(L) 1.00 - 4.40 x10E9/L 04/22/2024 11:21 AM [facility] Monocyte Absolute 0.13(L) 0.15 - 1.00 x10E9/L 04/22/2024 11:21 AM [facility] Eosinophil Absolute 0.01 0.00 - 0.60 x10E9/L 04/22/2024 11:21 AM [facility] RBC Morphology REVIEWED 04/22/2024 11:21 AM [facility] Schistocytes MODERATE(A) (none) 04/22/2024 11:21 AM [facility] Large Platelets PRESENT(A) (none) 11:21 AM [facility] Blood BLOOD SPECIMEN / Unknown Venipuncture / Unknown 04/22/2024 10:11 AM HAND WEAVER 04/22/2024 10:33 AM HAND WEAVER Cindy Garcia MD LAB - HEMATOLOGY ORD ERABLES [facility] [address] [place] [address], [facility] [phone] * (ABNORMAL) CBC WITH DIFFERENTIAL (04/22/2024 10:11 AM HAND WEAVER) Only the most recent of16 resultswithin the time period is included. WBC 0.6(LL) 4.0 - 10.7 x10E9/L 04/22/2024 11:21 AM [facility] RBC Count 3.69(L) 4.30 - 5.80 x10E12/L 04/22/2024 11:21 AM [facility] Hemoglobin 10.3(L) 13.3 - 17.5 g/dL 04/22/2024 11:21 AM [facility] Hematocrit 31.8(L) 38.7 - 51.1 % 04/22/2024 11:21 AM [facility] MCV 86.2 80.0 - 98.0 fL 04/22/2024 11:21 AM [facility] MCH 27.9 26.7 - 33.6 pg 04/22/2024 11:21 AM [facility] MCHC 32.4 31.7 - 36.3 g/dL 04/22/2024 11:21 AM [facility] RDW-CV 17.9(H) 11.3 - 14.8 % 04/22/2024 11:21 AM [facility] Platelet Count 212 150 - 420 x10E9/L 04/22/2024 11:21 AM [facility] MPV 12.4(H) 7.8 - 11.4 fL 04/22/2024 11:21 AM [facility] Preliminary Absolute Neutrophil 0.17(L) 1.60 - 7.50 x10E9/L 04/22/2024 11:21 AM [facility] Blood BLOOD SPECIMEN / Unknown Venipuncture / Unknown 04/22/2024 10:11 AM [facility] 04/22/2024 10:33 AM [facility] Cindy Garcia MD LAB - HEMATOLOGY ORD ERABLES [facility] [address] [place] [address], [facility] [phone] * (ABNORMAL) COMPREHENSIVE METABOLIC PANEL (04/22/2024 10:11 AM [facility]) Only the most recent of18 resultswithin the time period is included. BUN 11 7 - 26 mg/dL 04/22/2024 10:58 AM [facility] Creatinine 1.08 0.71 - 1.16 mg/dL 04/22/2024 10:58 AM [facility] Sodium 140 136 - 145 mmol/L 04/22/2024 10:58 AM [facility] Potassium 3.5 3.5 - 4.5 mmol/L 04/22/2024 10:58 AM [facility] Chloride 109(H) 98 - 107 mmol/L 04/22/2024 10:58 AM [facility] CO2 23 22 - 29 mmol/L 04/22/2024 10:58 AM [facility] Glucose 90 70 - 99 mg/dL 04/22/2024 10:58 AM [facility] Calcium 8.7 8.4 - 10.2 mg/dL 04/22/2024 10:58 AM [facility] Protein Total 6.1 6.0 - 8.3 g/dL 04/22/2024 10:58 AM [facility] Albumin 3.4 3.4 - 5.0 g/dL 04/22/2024 10:58 AM [facility] Bilirubin Total 1.1 0.2 - 1.2 mg/dL 04/22/2024 10:58 AM [facility] Alkaline Phosphatase 136 40 - 150 U/L 04/22/2024 10:58 AM [facility] ALT 21 5 - 55 U/L 04/22/2024 10:58 AM [facility] AST 17 5 - 34 U/L 04/22/2024 10:58 AM [facility] Anion Gap 8 6 - 16 04/22/2024 10:58 AM [facility] BUN/Creatinine Ratio 10 7 - 23 04/22/2024 10:58 AM [facility] Osmolality Calculated 289 275 - 295 mOsm/kg 04/22/2024 10:58 AM [facility] Albumin/Globulin Ratio 1.3 1.1 - 2.3 04/22/2024 10:58 AM [facility] eGFR by CKD-EPI 70(L) >=90 mL/min/1.7 3 m2 04/22/2024 10:58 AM [facility] Blood BLOOD SPECIMEN / Unknown Venipuncture / Unknown 04/22/2024 10:11 AM HAND WEAVER 04/22/2024 10:31 AM [facility] Cindy Garcia MD LAB - CHEMISTRY CHELI MONREAL [facility] Organization Address City/State/ZIP Co de Phone Number [address] [address], [facility] [phone] * QUANTIFERON-TB GOLD PLUS 4-TUBE (04/16/2024 1:43 PM HAND WEAVER) QuantiFERON Mitogen Minus NIL 9.09 IU/mL 04/18/2024 11:11 PM HAND WEAVER [facility]) QuantiFERON Nil Value 0.04 IU/mL 04/18/2024 11:11 PM HAND WEAVER [facility]) QuantiFERON Plus TB1 Minus NIL 0.00 <=0.34 IU/mL 04/18/2024 11:11 PM HAND WEAVER [facility]) QuantiFERON Plus TB2 Minus NIL 0.00 <=0.34 IU/mL 04/18/2024 11:11 PM HAND WEAVER [facility]) QuantiFERON-TB Gold Plus Negative Negative 04/18/2024 11:11 PM HAND WEAVER [facility] ([facility]) Comment: INTERPRETIVE INFORMATION:Quantiferon TB Gold Plus [...] Mycobacterium tuberculosis Infection -- [place], 2010 (http://www.cdc.gov/mmwr/preview/mmwrhtml/oa5219h4.htm), for more information concerning test performance in low-prevalence populations and use in occupational screening. Performed By: [facility] [address] [place] [address] Telephonic Nurse: Uche Morley MD, PhD CLIA Number: [id number] Blood BLOOD SPECIMEN / Unknown Venipuncture / Unknown 04/16/2024 1:43 PM HAND WEAVER 04/16/2024 2:03 PM HAND WEAVER Cindy Garcia MD LAB - CHEMISTRY CHELI MONREAL [facility] [employer] [facility]) [address] [place] [address] * LDH BLOOD (04/16/2024 10:26 AM HAND WEAVER) Only the most recent of13 resultswithin the time period is included. LDH Total 197 125 - 243 Units/L 04/16/2024 11:14 AM HAND WEAVER [facility] Blood BLOOD SPECIMEN / Unknown Venipuncture / Unknown 04/16/2024 10:26 AM HAND WEAVER 04/16/2024 10:48 AM HAND WEAVER Cindy Garcia MD LAB - CHEMISTRY CHELI MONREAL [facility] Organization Address City/State/ZIP Co de Phone Number [facility] [address] [place] [address], [facility] [phone] * IR Tim Cath Insert (04/11/2024 9:45 AM HAND WEAVER) Anatomical Region Laterality Modality Chest X-Ray Angiograph y 04/11/2024 9:19 AM HAND WEAVER Impressions 04/11/2024 3:43 PM HAND WEAVER Impression: Successful placement of a single lumen 8 Guatemalan x 23 cm chest power port via [...] evaluation, please review the evaluation forms in [facility]. For details on monitored clinical parameters during the intra-service sedation time, please review the procedure nurse documentation in [facility]. Report dictated by Eduardo Coleman MD, PhD (residential field manager). > Dictated by Eduardo Coleman MD (Systematic Theology Professor) 04/11/2024 9:19 AM Davian Post DO have personally reviewed and interpreted this examination/study. > Interpreting Provider: Davian Marshall DO on 04/11/2024 3:43 PM Narrative 04/11/2024 3:43 PM HAND WEAVER PROCEDURE: ??IR TIM CATH INSERT, DATE/TIME OF EXAM: ??04/11/2024 5:49 AM, LOCATION ??[facility] INDICATION: C92.00: 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 [...] chest. 3.Fluoroscopy-guided placement of single lumen 8 Guatemalan x 23 cm chest power port via [...] draped in the usual sterile manner. A grubber film of chest was obtained, which was [...] DATE/TIME OF EXAM: 04/11/2024 5:49 AM, LOCATION [facility] INDICATION: C92.00: 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 [...] chest. 3.Fluoroscopy-guided placement of single lumen 8 Guatemalan x 23 cm chestpower port via the [...] and draped inthe usual sterile manner. A grubber film of chest was obtained, which was [...] the procedure well [facility]. There were no immediate complicationsassociated with the procedure. Impression: Successful placement of a single lumen 8 Guatemalan x 23 cmchest power port via the [...] intravenously in my presence, and monitored by theprocedure nurse as an independent trained observer who [...] evaluation, please review the evaluation forms in [facility]. For details on monitored clinical parameters during the intra-service sedation time, please review the procedure nurse documentation in [facility]. Report dictated by Eduardo Coleman MD, PhD (residential field manager). > Dictated by Eduardo Coleman MD (Systematic Theology Professor) 04/11/2024 9:19AM I, Davian Marshall DO have personally reviewed and interpreted this examination/study. > Interpreting Provider: Davian Marshall DO on 04/11/2024 3:43 PM Cindy Garcia MD IR ORDERABLES * PT-INR [facility] (04/11/2024 7:20 AM HAND WEAVER) Only the most recent of11 resultswithin the time period is included. PT 14.6 12.1 - 14.8 Seconds 04/11/2024 7:56 AM HAND WEAVER [facility] INR 1.2 See Comment 04/11/2024 7:56 AM HAND WEAVER [facility] Comment:The suggested therap eutic range for standard coumadin (warfarin) therapy is an INR of 2.0-3.0. For high-risk patients (Mechanical Mitral Valve Prosthesis, etc.), the suggested prophylactic therapeutic range is an INR of 2.5-3.5. Blood BLOOD SPECIMEN / Unknown Venipuncture / Unknown 04/11/2024 7:20 AM HAND WEAVER 04/11/2024 7:23 AM HAND WEAVER Cindy Garcia MD LAB - COAGULATION OR DERABLES [address] [address], [facility] [phone] * URIC ACID BLOOD (04/01/2024 3:12 PM HAND WEAVER) Only the most recent of13 resultswithin the time period is included. Uric Acid 4.0 3.5 - 7.2 mg/dL 04/01/2024 5:52 PM HAND WEAVER [facility] Blood BLOOD SPECIMEN / Unknown Lab Venipuncture / Unknown 04/01/2024 3:12 PM HAND WEAVER 04/01/2024 5:30 PM HAND WEAVER Cindy Garcia MD LAB - CHEMISTRY CHELI MONREAL [address] [address], [facility] [phone] * ERYTHROPOIETIN (04/01/2024 3:12 PM HAND WEAVER) [facility] Erythropoietin 22 4 - 27 mU/mL 04/02/2024 11:36 AM HAND WEAVER [facility] ([facility]) Comment: INTERPRETIVE INFORMATION: Erythropoietin Normal serum [...] may benefit from therapy with recombinant EPO ([facility] [phone],1989). Performed By: [facility] [address] [place] [address] Telephonic Nurse: Uche Morley MD, PhD CLIA Number: [id number] Blood BLOOD SPECIMEN / Unknown Lab Venipuncture / Unknown 04/01/2024 3:12 PM HAND WEAVER 04/01/2024 3:22 PM HAND WEAVER Cindy Garcia MD LAB - CHEMISTRY CHELI MONREAL [employer] [facility]) [address] [place] [address], [facility] * SOLUBLE TRANSFERRIN RECEPTOR (04/01/2024 3:12 PM HAND WEAVER) [facility] Soluble Transferrin Receptor 3.3 2.2 - 5.0 mg/L 04/02/2024 9:13 PM HAND WEAVER [facility] [employer] ([facility]) Comment: INTERPRETIVE INFORMATION: Soluble Transferrin Receptor [...] ??High ? Normal ? High Performed By: [facility] [address] [place] [address] Telephonic Nurse: Uche Morley MD, PhD CLIA Number: [id number] Blood BLOOD SPECIMEN / Unknown Lab Venipuncture / Unknown 04/01/2024 3:12 PM HAND WEAVER 04/01/2024 3:22 PM HAND WEAVER Cindy Garcia MD LAB - CHEMISTRY CHELI MONREAL [employer] ([facility]) [address] [place] [address], [facility] * PHOSPHORUS BLOOD (04/01/2024 3:12 PM HAND WEAVER) Only the most recent of13 resultswithin the time period is included. [facility] Signature Phosphorus 2.9 2.8 - 5.1 mg/dL 04/01/2024 5:52 PM HAND WEAVER [facility] Blood BLOOD SPECIMEN / Unknown Lab Venipuncture / Unknown 04/01/2024 3:12 PM HAND WEAVER 04/01/2024 5:30 PM HAND WEAVER Cindy Garcia MD LAB - CHEMISTRY CHELI MONREAL Performing Organization Address [facility] Co de Phone Number [address] [address], [facility] [phone] * MAGNESIUM BLOOD (04/01/2024 3:12 PM HAND WEAVER) Only the most recent of13 resultswithin the time period is included. Magnesium 2.1 1.6 - 2.6 mg/dL 04/01/2024 4:25 PM HAND WEAVER [facility] Comment:Hemolysis detected i n this specimen. Hemolysis is known to cause elevations in this analyte. Caution should be exercised in the interpretation of this result. Recommend repeat testing if clinically indicated. Blood BLOOD SPECIMEN / Unknown Lab Venipuncture / Unknown 04/01/2024 3:12 PM HAND WEAVER 04/01/2024 3:36 PM HAND WEAVER Cindy Garcia MD LAB - CHEMISTRY CHELI MONREAL Performing Organization Address [facility] Co de Phone Number [address] [address], [facility] [phone] * LAB RESULTS ORDER (03/25/2024) 03/25/2024 Narrative 03/25/2024 Ordered by an unspecified provider. Scanned Document LAB - THERAPEUTIC DR UG MONITORING ORDERABLES * PTT [facility] (03/23/2024 12:25 AM HAND WEAVER) Only the most recent of10 resultswithin the time period is included. APTT 35.4 23.0 - 38.4 Seconds 03/23/2024 1:31 AM HAND WEAVER [facility] Comment:Suggested therapeuti c range for full dose I.V. unfractionated heparin therapy for venous thromboembolism is 71 to 109 seconds. Blood BLOOD SPECIMEN / Unknown Venipuncture / Unknown 03/23/2024 12:25 AM HAND WEAVER 03/23/2024 1:05 AM HAND WEAVER Ghanshyam Dewey PA-C LAB - COAGULATION OR DERABLES Performing Organization Address City/[facility]/ZIP Co de Phone Number [address] [address], [facility] [phone] * PATHOLOGY PERIPHERAL SMEAR REVIEW (03/18/2024 8:33 AM HAND WEAVER) Path Review Confirmed 03/18/2024 2:44 PM HAND WEAVER [facility] Blood BLOOD SPECIMEN / Unknown Lab Venipuncture / Unknown 03/18/2024 8:33 AM HAND WEAVER 03/18/2024 8:46 AM HAND WEAVER Narrative [facility] - 03/18/2024 2:44 PM HAND WEAVER A rare blast seen. Ghanshyam Dewey PA-C LAB - PATHOLOGY/CYTO LOGY ORDERABLES Performing Organization Address [facility]/ZIP Co de Phone Number [address] [address], [place] [phone] * ECHO COMPLETE W CONTRAST (03/15/2024 1:47 PM HAND WEAVER) IVSd 2D 1.314 cm [facility] CV FUJ [...] PACS AV VTI 30.145 cm [facility] CV [facility] I PACS MV A pk lawanda 84.582 cm/s [facility] CV F UJI PACS MV E pk lawanda 99.639 cm/s [facility] CV F UJI PACS MV E' lateral lawanda 5.461 cm/s [facility] CV FUJI PACS MV mn grad 1.183 mmHg [facility] CV FU JI PACS MV VTI 30.572 cm [facility] CV [facility] I PACS PV pk lawanda 84.446 cm/s [facility] CV [facility] I PACS PV VTI 18.271 cm [facility] CV FUJ I PACS TAPSE 1.78 cm [facility] CV [facility] I PACS TR pk lawanda 276.773 cm/s [facility] CV [facility] I PACS Ascending aorta 3.799 cm [facility] LA vol index 0.046 l/m? ? ? [facility] CV FUJI PACS Myocardial strain charge 2 unitless [facility] CV FUJI PACS Sinus of Valsalva 3.4 cm [facility] CV FUJI PACS ST junction 3.4 cm S[facility] CV F UJI PACS Anatomical Region Laterality Modality Ultrasound 03/15/2024 2:04 PM HAND WEAVER Narrative 03/15/2024 5:17 PM HAND WEAVER Summary ??* The left ventricle is normal [...] 1945 Gender: ? Male Accession #: ? [id number] Ht: ? 72 in Wt: ? 218 lb BSA: ? 2.26 m2 HR: ? 65 bpm BP: ? 103 / ? 55 mmHg Exam Date: ? 03/15/2024 2:04 PM Patient Status: ? I/P Study Site: ? [facility] Primary Location: ? [facility] EStud Info Technical Quality: ? Adequate Exam [...] ? Ted Soler Fellow: ? Josh Knight Shingle Packer: ? Dhruv Sorto Left Ventricle ??Left ventricular [...] PM Patient Status: I/P Study Site: [facility]: Adequate Exam Type: ECHO [...] Attending Physician: Ted Soler Fellow: Josh Knight Shingle Packer: Dhruv Sorto Left Ventricle Left ventricular systolic [...] BLOOD OR BONE MARROW (03/15/2024 9:05 AM HAND WEAVER) Pathologist [facility] MDS Panel by Fish See Note Normal 024 11:26 AM HAND WEAVER [employer] ([facility]) Comment: Test Performed: Myelodysplastic Syndrome [...] 7, deletion 7q31, trisomy 8, or deletion 26n02-i20.1. This analysis was performed with the MDS panel probes D5S23/EGR1, D7Z1/T0T112, CEP8 ([employer]), and Del(20q) (IZEA). A total of 200 cells were scored for each probe. Cytogenomic Nomenclature (ISCN): nuc nereyda(D5S23,EGR1,D7Z1,Q0C132,D8Z2,D39F190,MYBL2)x2[200' This result has been reviewed and approved by Nabila Gonzalez, PhD, [facility] A portion of this analysis was performed at the following location(s): [facility] Site -[place]#2 INTERPRETIVE INFORMATION: MDS Panel by FISH This test was developed and its performance characteristics determined by [facility]. It has not been cleared or approved by the US Food and Drug Administration. This test was performed in a CLIA certified laboratory and is intended for clinical purposes. EER MDS Fish Panel See Note 2023 11:26 AM HAND WEAVER [facility] ([facility]) Comment: Authorized individuals can access the [employer] Enhanced Report using the following link: [email or web address] Performed By: [facility] [address] [place] [address] Telephonic Nurse: Uche Morley MD, PhD CLIA Number: [id number] Other BONE MARROW SPECIMEN / Unknown Collection / Unknown 03/15/2024 9:05 AM HAND WEAVER 03/15/2024 9:30 AM HAND WEAVER Rodo Perez MD LAB - PATHOLOG Y/CYTOLOGY ORDERABLES [facility] [employer] ([facility]) [address] [place] [address], [facility] * FISH AML PANEL BLOOD OR BM RFLX PML/DANTE (03/15/2024 9:05 AM HAND WEAVER) Only the most recent of2 resultswithin the time period is included. [facility] Signature FISH AML Panel See Note Normal 03/25/2024 10:34 AM HAND WEAVER [employer] ([facility]) Comment: Test Performed: Acute Myeloid Leukemia Panel by FISH (FISHAML) Specimen Type: Bone Marrow Indication for Testing: Myelodysplastic syndrome, unspecified RESULT Normal FISH Result inv(3) or t(3;3) GATA2::MECOM Fusion: ??not detected Deletion 5q: ??not detected Monosomy 7: ??not detected Deletion 7q: ??not detected t(8;21) RUNX1::RIKS6A6 Fusion: ??not detected 11p15 (NUP98) Rearrangement: ??not detected 11q23 (KMT2A) Rearrangement: ??not detected inv(16) or t(16;16) CBFB::MYH11 Fusion: ??not detected INTERPRETATION There was no evidence of GATA2::MECOM (also known as RPN1-EVI1) fusion due to 3q21/3q26.2 inversion or translocation, deletion 5q31, monosomy 7, deletion 7q31, RUNX1::JQOH2G4 fusion due to translocation (8;21)(q21.3;q22), 11p15 (NUP98) rearrangement, 11q23 KMT2A (MLL) rearrangement, or CBFB::MYH11 fusion due to either 16p13.1/16q22 inversion or translocation. This analysis was performed with the AML panel probes RPN1/MECOM, D5S23/EGR1, D7Z1/F2J400, RUNX1/XUQG8P7 ([employer]), NUP98 and CBFB-MYH11 ([employer]), and MLL (KMT2A) ([employer]). A total of 200 cells were scored for each probe. Cytogenomic Nomenclature (ISCN): nuc nereyda(RPN1,MECOM,D5S23,EGR1,D7Z1,Q7N890,UPVK6S7,NUP98,KMT2A,MYH11,CBF B,RUNX1)x2[200' This result has been reviewed and approved by Mundo Mejia, PhD, [facility] A portion of this analysis was performed at the following location(s): [facility] [address] Site CG-[place]#1 INTERPRETIVE INFORMATION: AML Panel by FISH This test was developed and its performance characteristics determined by [facility]. It has not been cleared or approved by the US Food and Drug Administration. This test was performed in a CLIA certified laboratory and is intended for clinical purposes. EER AML Panel by FISH See Note 03/25/2024 10:34 AM HAND WEAVER [facility] ([facility]) Comment: Authorized individuals can access the [employer] Enhanced Report using the following link: [email or web address] Performed By: [facility] [address] [place] [address] Telephonic Nurse: Uche Morley MD, PhD CLIA Number: [id number] Other BONE MARROW SPECIMEN / Unknown Collection / Unknown 03/15/2024 9:05 AM HAND WEAVER 03/15/2024 9:30 AM HAND WEAVER Rodo Perez MD LAB - PATHOLOG Y/CYTOLOGY ORDERABLES [facility] ([facility]) [address] [place] [address], [facility] * FLOW CYTOMETRY BONE MARROW (03/15/2024 9:05 AM HAND WEAVER) Only the most recent of2 resultswithin the time period is included. Case Report Flow Cytometry ?Case: [id number] ? Authorizing Provider: ??Rodo Perez, ?? Collected: ? 03/15/2024 09:05 AM ? MD ? Ordering Location: ? [facility] ? Received: ?03/15/2024 09:30 AM ? Pathologist: ? Angeles Rosado, ? Specimen: ?Bone Marrow ? 03/15/2024 2:40 PM [facility] Final Diagnosis Bone marrow, flow cytometric immunophenotypic analysis: - Paucicellular specimen with increased myeloblasts detected (42.4% of events) - See interpretation 03/15/2024 2:40 PM [facility] Flow Cytometry Interpretation Viability: [...] specimen has been reviewed for quality control scientist purposes. Correlation with the concurrent bone marrow biopsy ([id number]) is required. 03/15/2024 2:40 PM [facility] Flow Cytometry Results Differential Result Comment Flow Cell Count /uL 980 Total Viability % 92.0 Lymphocytes % 13 Dim CD45 Region % 55 Monocytes % 2 Granulocytes % 28 03/15/2024 2:40 PM [facility] Reason for test MDS (myelodysplastic syndrome) (HCC) 238.75 03/15/2024 2:40 PM [facility] Client Specimen ID # [id number] 03/15/2024 2:40 PM [facility] Number of markers 24 were performed. A-2 Flow CD10 A-3 Flow CD13 A-5 Flow CD20 A-11 Flow CD2 A-13 Flow CD14 A-16 Flow CD117 A-17 Flow CD11b A-18 Flow CD11c A-1 Flow CD5 A-4 Flow CD19 A-6 Flow CD33 A-7 Flow CD34 A-8 Flow CD45 A-12 Flow CD7 A-14 Flow CD56 A-15 Flow CD64 A-23 cyCD22 A-24 uiIJ34p A-9 [place]+CD19+ A-10 Lambda+CD19+ A-19 Flow HLA-DR A-20 Flow MPO A-21 Flow TdT A-22 cyCD3 03/15/2024 2:40 PM [facility] Pathologist Location at [facility] 03/15/2024 2:40 PM [facility] Disclaimer Test performed at [facility], [address] [place] [address], [address]. *The established laboratory minimum viability is 70%. [...] high complexity clinical testing. 03/15/2024 2:40 PM HAND WEAVER [facility] Embedded Images 2:40 PM HAND WEAVER [facility] Pathology/Cytolo gy BONE MARROW SPECIMEN / Unknown Collection / Unknown 03/15/2024 9:05 AM HAND WEAVER 03/15/2024 9:30 AM HAND WEAVER Rodo Perez MD LAB - PATHOLOG Y/CYTOLOGY ORDERABLES Performing Organization Address City/State/[facility] de Phone Number [facility] [address] [facility]. [address] [phone] * BONE MARROW BIOPSY (STL) (03/15/2024 9:05 AM HAND WEAVER) Only the most recent of2 resultswithin the time period is included. Case Report Bone Marrow Patholog y Report ?Case: [id number] ? Authorizing Provider: ??Rodo Perez, ?? Collected: ? 03/15/2024 09:05 AM ? MD ? Ordering Location: ? [facility] 7N ACUTE ? Received: ?03/15/2024 09:30 AM ? Pathologist: ? Guillermo Brown, ? Specimens: ?? A) - Bone Marrow Clot ? B) - Bone Marrow Core ? C) - Bone Marrow Aspirate ? D) - Blood Peripheral ? 03/18/2024 4:01 PM HAND WEAVER [facility] Final Diagnosis Bone marrow, aspirate, clot section, and core biopsy: - Acute myeloid leukemia. - See description. Peripheral blood smear: - Pancytopenia. - See description. 03/18/2024 4:01 PM [facility] Comment Immunohistochemistry performed show [...] for a definitive subclassification. 03/18/2024 4:01 PM [facility] Peripheral Smear Description RBC: normocytic anemia. WBC: leukopenia with absolute neutropenia and lymphopenia. No circulating blasts seen. Platelets: decreased in number. 03/18/2024 4:01 PM [facility] Bone Marrow Aspirate Differential [...] stain): no ring sideroblasts. 03/18/2024 4:01 PM [facility] Bone Marrow Core Biopsy [...] morphology: peripheral blood only. 03/18/2024 4:01 PM [facility] Flow Cytometry Summary Bone marrow, flow cytometric immunophenotypic analysis ([id number]): - Paucicellular specimen with increased myeloblasts detected (42.4% of events) 03/18/2024 4:01 PM [facility] Clinical History New AML. 03/18/2024 4:01 PM [facility] Gross Description The requisition [...] in cassette B1. DF 03/18/2024 4:01 PM [facility] Pathologist Location at [facility] 03/18/2024 4:01 PM [facility] Disclaimer The performance characteristics of all immunohistochemical and indirect immunofluorescence stains (if any) cited in this report were determined by the Histopathology Laboratory of [facility]. Some of these tests were developed [...] the attending (teaching) pathologist. 03/18/2024 4:01 PM [facility] Embedded Images 03/18/2024 4:01 PM [facility] Pathology/Cytology PERIPHERAL BLOOD / Unknown Collection / Unknown 03/15/2024 9:05 AM HAND WEAVER 03/15/2024 9:30 AM HAND WEAVER Miscellaneous samples (specimen) BONE MARROW SPECIMEN / Unknown 03/15/2024 9:05 AM HAND WEAVER 03/15/2024 9:30 AM HAND WEAVER Miscellaneous samples (specimen) SPECIMEN FROM BONE MARROW OBTAINED BY ASPIRATION / Unknown 03/15/2024 9:05 AM HAND WEAVER 03/15/2024 9:30 AM HAND WEAVER Miscellaneous samples (specimen) PERIPHERAL BLOOD / Unknown 03/15/2024 9:05 AM HAND WEAVER 03/15/2024 11:39 AM HAND WEAVER Rodo Perez MD LAB - PATHOLOG Y/CYTOLOGY ORDERABLES [facility] [address] [facility]. [address] [phone] * MYELOID MALIGNANCIES MUTATION PNL (03/15/2024 9:05 AM HAND WEAVER) Only the most recent of2 resultswithin the time period is included. Interpretation Myeloid Malignancy PNL See Note 03/28/2024 2:06 PM HAND WEAVER [facility] ([facility]) Comment: Myeloid Malignancies Mutation Panel NGS Submitted diagnosis or diagnosis under consideration for variant interpretation: Myelodysplastic syndrome, unspecified Note: Prior NGS testing performed on this patient (most recent [facility] accession [id number]) was reviewed in conjunction with the current case to compare molecular variants reported. The previously reported molecular variants DNMT3A, IDH1, and CUX1 are again detected in the current study. In addition, new molecular variants in STAG2, BCOR, JAK2, and CEBPA are now detected. TIER 1: Variants of Known Clinical Significance in Hematologic Malignancies 1. IDH1 c.394C>A, p.Vfx706Pjh (NM_[id number]) VAF: 38.4% IDH1 encodes an enzyme that catalyzes the conversion of isocitrate to alpha-ketoglutarate in the citric acid cycle (23). Somatic mutations of IDH1 are found in 4-12% of patients with myelodysplastic syndrome (MDS).This mutation has been reported in hematologic malignancies (4). The prognostic significance of mutated IDH1 in MDS is uncertain (20) (27) (7) (14) (19) (32). 2. DNMT3A c.2206C>T, p.Izu782Mdu ([id number]) VAF: 42.2% DNMT3A encodes a DNA [...] stem cell transplantation (2). 3. DNMT3A c.2407A>G, p.Ygc743Cgc (NM_[id number]) VAF: 38.8% This mutation has also been reported in hematologic malignancies (4). 4. JAK2 c.1849G>T, p.Smf387Xto (NM_004972.4) VAF: 14.4% JAK2 encodes a non-receptor protein tyrosine kinase that regulates STAT screen cleaner factors in response to cytokine receptor signaling (13). JAK2 mutations have been reported in 3-6% of patients with MDS (6) (15) (31). This JAK2 mutation (p.Pvc749Civ) has also been reported in approximately 10-25% of patients with myelodysplastic/myeloproliferative neoplasms (MDS/MPN) (31) (21). This particular JAK2 mutation occurs in the pseudokinase (JH2) domain and leads to activation of the NOLAN-STAT pathway signaling. The prognostic significance of JAK2 mutations in MDS is unclear (6). 5. STAG2 c.1840C>T, p.Dth625* (NM_[id number]) VAF: 31.7% STAG2 encodes a subunit [...] unmutated cohesin genes (29). 6. BCOR c.3649C>T, p.Rou5786* (NM_[id number]) VAF: 9.6% BCOR encodes a transcriptional corepressor that interacts with BCL-6 and histone deacetylases (HDACs) (5) (12). Mutations in BCOR are seen in 4% of patients with MDS (5) (11). BCOR mutations in MDS are often frameshift and nonsense mutations that result in ogue-rw-vicsplpy (5) (11). This mutation is predicted to alter the normal function of BCOR. BCOR mutations are associated with a higher incidence of AML transformation in MDS patients and shorter overall survival in MDS patients (5) (11) (16). 7. BCOR c.635_638del, p.Tzg387Stwvo*3 (NM_[id number]) VAF: 6.2% This mutation is also predicted to alter the normal function of BCOR. TIER 2: Variants of Unknown Clinical Significance in Hematologic Malignancies 1. CEBPA c.1074_*9del, p.*359Cysext*58 (NM_[id number]) VAF: 4.7% CEBPA encodes a protein that is a member of the basic region leucine zipper family of screen cleaner factors (18). Somatic mutations of CEBPA are [...] if any, is uncertain. 2. CUX1 c.3085G>A, p.Cpy7720Acf (NM_181552.4) VAF: 44.8% This variant has been rarely reported in hematologic malignancies (1) (10), to the best of our knowledge. References 1: Lynnette P, ??Emmanuelle B, ??Zhanna CLARK et al, Assessment of Minimal Residual Disease by Next Generation Sequencing in Peripheral Blood as a Complementary Tool for Personalized Transplant Monitoring in Myeloid Neoplasms. J Clin Med 2020. PMID:61466362 2: Virginie R, ??Juan HERNANDEZ, ??Ulises Kim et al, Somatic mutations predict poor outcome in patients with myelodysplastic syndrome after hematopoietic stem-cell transplantation. J Clin Oncol 2014. PMID:13051524 3: cBioPortal: http://www.cbioportal.org/ 4: COSMIC: https://cancer.vipin.ac.uk/cosmic 5: Braulio Mason, ??Chesnais V, ??Camilla Y et al, BCOR and BCORL1 mutations in myelodysplastic syndromes and related disorders. Blood 2013. PMID:51451290 6: Bill M, ??Jennifer Rubin, ??Víctor Stroud et al, JAK2 Mutations Are Rare and Diverse in Myelodysplastic Syndromes: Case Series and Review of the Literature. Hematol Rep 2022. PMID:76304342 7: Jahaira GRAY, ??Kamla Estrada, ??Mary Mason et al, IDH1 and IDH2 mutations in myelodysplastic syndromes and role in disease progression. Leukemia 2016. PMID:99736181 8: Fried I, ??Day C, ??Lenin MURPHY et al, Frequency, onset and clinical impact of somatic DNMT3A mutations in therapy-related and secondary acute myeloid leukemia. Haematologica 2012. PMID:61224036 9: Nuha O, ??Idania Amador, ??Luanne Payne et al, CEBPA polymorphisms and mutations in patients with acute myeloid leukemia, myelodysplastic syndrome, multiple myeloma and non-Hodgkin's lymphoma. Blood Cells Mol Dis 2008. PMID:05095846 10: Cassandra Kim, ??Cornell Payne, ??Alexis Valdivia et al, DNA methylation epitypes highlight underlying developmental and disease pathways in acute myeloid leukemia. Genome Res 2020. PMID:98080152 11: Iavn V, ??Jenna E, ??Alondra DEMPSEY et al, Whole-exome sequencing identifies somatic mutations of BCOR in acute myeloid leukemia with normal karyotype. Blood 2011. PMID:92134120 12: Lin RUEDA, ??Yashira W, ??Darcie Estrada et al, BCoR, a novel corepressor involved in BCL-6 repression. Genes Dev 2000. PMID:23609172 13: Fabian SS, ??Jen SJ, ??Amandeep LR et al, Nolan/STAT pathways in cytokine signaling and myeloproliferative disorders: approaches for targeted therapies. Genes Cancer 2010. PMID:83873693 14: Jose J Broussard, ??Charity V, ??Grayson Stroud et al, Mutations of IDH1 and IDH2 genes in early and accelerated phases of myelodysplastic syndromes and MDS/myeloproliferative neoplasms. Leukemia 2010. PMID:78546919 15: Meggendorfer M, ??Catherine C, ??Ahsan W et al, Molecular analysis of myelodysplastic syndrome with isolated deletion of the long arm of chromosome 5 reveals a specific spectrum of molecular mutations with prognostic impact: a study on 123 patients and 27 genes. Haematologica 2017. PMID:33210234 16: Gregoria BAR, ??Meliton T, ??Valerie M et al, Spectrum and prognostic relevance of city driver gene mutations in acute myeloid leukemia. Blood 2016. PMID:50356511 17: Nicol Tong, ??Mel MEANS, ??Milton Doss et al, Dominant-negative mutations of CEBPA, encoding CCAAT/enhancer binding protein-alpha (C/EBPalpha), in acute myeloid leukemia. Yusra Emely 2001. PMID:94080968 18: Mel Hughes, Complexity of CEBPA dysregulation in human acute myeloid leukemia. Clin Cancer Res 2009. PMID:22123081 19: Papaemmajean pierre E, ??Gerstung M, ??Hugh L et al, Clinical and biological implications of city driver mutations in myelodysplastic syndromes. Blood 2013. PMID:12643248 20: Eileen MURPHY, ??Rajinder CHRISTY, ??Juju OTERO et al, Differential prognostic effect of IDH1 versus IDH2 mutations in myelodysplastic syndromes: a [facility] study of 277 patients. Leukemia 2012. PMID:12437767 21: Eileen MURPHY, George TL, Genomics of myelodysplastic syndrome/myeloproliferative neoplasm overlap syndromes. Hematology Am Soc Hematol Educ Program 2020. PMID:61092247 22: Preudhomme C, ??Sagot C, ??Heather N et al, Favorable prognostic significance of CEBPA mutations in patients with de elinor acute myeloid leukemia: a study from the Acute Leukemia [place] Association (JOSE). Blood 2002. PMID:77723450 23: Bulmaro BENTON, Josse H, Isocitrate dehydrogenase 1 and 2 mutations in cancer: alterations at a crossroads of cellular metabolism. J Natl Cancer Inst 2010. PMID:70013006 24: Jose A, ??Ivan V, ??Yudi U et al, [place] analysis of DNMT3A mutations in hematological malignancies. Leukemia 2013. PMID:02208525 25: Kim LANZA, ??Miriam O, ??Arnulfo REINOSO et al, The role of mutations in epigenetic regulators in myeloid malignancies. Yusra Rev Cancer 2012. PMID:64574134 26: Robby F, ??Hubert ISSA, ??Efrem Payne et al, CEBPA mutations in 4708 patients with acute myeloid leukemia: differential impact of bZIP and TAD mutations on outcome. Blood 2021. PMID:22743914 27: Thol F, ??Weissluca EM, ??Sam Lynn et al, IDH1 mutations in patients with myelodysplastic syndromes are associated with an unfavorable prognosis. Haematologica 2010. PMID:16586451 28: Thol F, ??Lisa Rubin, ??Bro Valdivia et al, Rare occurrence of DNMT3A mutations in myelodysplastic syndromes. Haematologica 2011. PMID:66118142 29: Josey S, ??Liam SAAB, ??Joan H et al, Genetic alterations of the cohesin complex genes in myeloid malignancies. Blood 2014. PMID:47102971 30: Barrett MERRITT, ??Tono Stroud, ??Jossue Amador et al, Recurrent DNMT3A mutations in patients with myelodysplastic syndromes. Leukemia 2011. PMID:15238764 31: Wan Z, Adamson B, Comparison and Implications of Mutational Profiles of Myelodysplastic Syndromes, Myeloproliferative Neoplasms, and Myelodysplastic/Myeloproliferative Neoplasms: A Ebro-Analysis. Front Oncol 2020. PMID:65866326 32: Cornell Flower, ??Sarabia F, ??Yuval N et al, IDH1 Mutation Is an Independent Inferior Prognostic Indicator for Patients with Myelodysplastic Syndromes. Acta Haematol 2017. PMID:07056183 33: Ochoa L, Gabriella R, Hieu ALBERTS, DNMT3A in haematological malignancies. Yusra Rev Cancer 2015. PMID:62923731 This result has been reviewed and approved by Jannette Dutta M.D. Low coverage regions: Listed below are regions where the average sequencing depth (number of times a particular nucleotide is sequenced) in at least 20% of the xpohxy-kl-mtyqikec is less than our stringent cutoff of [...] NOTCH1; NPM1*; NRAS; NSD1; PHF6; PIGA; PPM1D; ARYR13R; PRPF8; PTPN11; RAD21; RUNX1; SAMD9; SAMD9L; SETBP1; [...] developed and its performance characteristics determined by [facility]. It has not been cleared or approved by the U.S. Food and Drug Administration. This test was performed in a CLIA-certified laboratory and is intended for clinical purposes. Myeloid Malignancy Dx Mds Unspec 03/28/2024 2:06 PM HAND WEAVER [facility] ([facility]) Myeloid Malignancy Panel Specimen Bone Marrow 03/28/2024 2:06 PM HAND WEAVER [facility] ([facility]) EER Myeloid Malignancy See Note 03/28/2024 2:06 PM HAND WEAVER [facility] ([facility]) Comment: Authorized individuals can access the [facility] Enhanced Report using the following link: [email or web address] Performed By: [facility] [address] [place] [address] Telephonic Nurse: Uche Morley MD, PhD CLIA Number: [id number] Other BONE MARROW SPECIMEN / Unknown Collection / Unknown 03/15/2024 9:05 AM HAND WEAVER 03/15/2024 9:30 AM HAND WEAVER Rodo Perez MD LAB - PATHOLOG Y/CYTOLOGY ORDERABLES Performing Organization Address City/[facility]/ZIP Co de Phone Number [facility]) [address] * LAB MISC TEST (NOT BLOOD) (03/15/2024 9:05 AM HAND WEAVER) Only the most recent of3 resultswithin the time period is included. Test Name Tp53 03/21/2024 12:06 PM HAND WEAVER [facility] REF LAB NON INTERF Test Result See Scanned Report 03/21/2024 12:06 PM HAND WEAVER [facility] REF LAB NON INTERF Comment Ref Lab 03/21/2024 12:06 PM HAND WEAVER [facility] REF LAB NON INTERF Other BONE MARROW SPECIMEN / Unknown Collection / Unknown 03/15/2024 9:05 AM HAND WEAVER 03/15/2024 9:30 AM HAND WEAVER Rodo Perez MD LAB - BODY FLU ID ORDERABLES [facility] REF LAB NON INTERF [address] [place] [address], [place] [phone] * FISH PML/DANTE PANEL (03/15/2024 9:05 AM HAND WEAVER) Only the most recent of2 resultswithin the time period is included. EER PML/DANTE Translocation by Fish See Note 03/17/2024 4:41 PM HAND WEAVER [facility] ([facility]) Comment: Authorized individuals can access the [employer] Enhanced Report using the following link: [email or web address] Performed By: [facility] [address] [place] [address] Telephonic Nurse: Uche Morley MD, PhD CLIA Number: [id number] PML/DANTE Translocation by FISH See Note 03/17/2024 4:41 PM HAND WEAVER [facility] ([facility]) Comment: Test Performed: PML-DANTE Translocation [...] Nabila Gonzalez, PhD, [facility] A portion of this analysis was performed at the following location(s): [facility] Site CG-[place]#2 INTERPRETIVE INFORMATION: PML/DANTE Translocation by FISH This test was developed and its performance characteristics determined by [facility]. It has not been cleared or approved by the US Food and Drug Administration. This test was performed in a CLIA certified laboratory and is intended for clinical purposes. Other BONE MARROW SPECIMEN / Unknown Collection / Unknown 03/15/2024 9:05 AM HAND WEAVER 03/15/2024 9:30 AM HAND WEAVER Rodo Perez MD LAB - PATHOLOG Y/CYTOLOGY ORDERABLES [facility]) [address] [place] [address], [facility] * CHROMOSOME ANALYSIS BONE MARROW PANEL (03/15/2024 9:05 AM HAND WEAVER) Pathologist [facility] Chromosome Analysis Bone Marrow See Note Normal 03/22/2024 11:01 AM HAND WEAVER [employer] ([facility]) Comment: Test Performed: Chromosome Analysis [...] study. NOTE: Concurrent FISH PML performed under [facility] accession [id number] was NORMAL. FISHAML and FISH MDS P are PENDING and will be reported under [facility] accessions [id number] and [id number]. This result has been reviewed and approved by Randall Yun, PhD, [facility] A portion of this analysis was performed at the following location(s): [facility] Site CG-[place]#2 [facility] Site CG-[place]#3 [facility]-[place]#4 [facility] Site -[place]#1 INTERPRETIVE INFORMATION: Chromosome Analysis, Bone Marrow This test was developed and its performance characteristics determined by [facility]. It has not been cleared or approved by the US Food and Drug Administration. This test was performed in a CLIA certified laboratory and is intended for clinical purposes. EER Chromosome Analysis Bone Marrow See Note 03/22/2024 11:01 AM HAND WEAVER [facility] ([facility]) Comment: Authorized individuals can access the [facility] Enhanced Report using the following link: [email or web address] Performed By: [facility] [address] [place] [address] Telephonic Nurse: Uche Morley MD, PhD CLIA Number: [id number] Bone marrow BONE MARROW SPECIMEN / Unknown 03/15/2024 9:05 AM HAND WEAVER 03/15/2024 9:30 AM HAND WEAVER Rodo Perez MD LAB - PATHOLOG Y/CYTOLOGY ORDERABLES [facility] ([facility]) [address] [place] [address], [facility] * FLOW CYTOMETRY BLOOD PROFILE (03/14/2024 10:32 AM HAND WEAVER) Case Report Flow Cytometry ?Case: [id number] ? Authorizing Provider: ??Ghanshyam Dewey PA-C ? Collected: ? 03/14/2024 10:32 AM ? Ordering Location: ? [facility] 7N ACUTE ? Received: ?03/14/2024 01:49 PM ? Pathologist: ? Angeles Rosado MD ? Specimen: ?Blood ? 03/14/2024 4:58 PM [facility] Final Diagnosis Peripheral blood, flow cytometric immunophenotypic analysis: - 1.2% myeloblasts detected - No evidence of a monoclonal B-cell population - See interpretation 03/14/2024 4:58 PM [facility] Flow Cytometry Results Differential Result Comment WBC Count /uL 1,200 Total Viability % 100.0 Lymphocytes % 80 Dim CD45 Region % 4 Monocytes % 4 Granulocytes % 13 03/14/2024 4:58 PM [facility] Flow Cytometry Interpretation Viability: 100% B-cells: polytypic, kappa:lambda ratio 1.1:1. Blasts: 1.2% of events are myeloblasts. Monocytes are mature. A peripheral blood smear prepared from the flow cytometry specimen has been reviewed for quality control scientist purposes. 03/14/2024 4:58 PM [facility] Reason for test MDS (myelodysplastic syndrome) (HCC) 238.75 03/14/2024 4:58 PM [facility] Client Specimen ID # [id number] 03/14/2024 4:58 PM [facility] Pathologist Location at [facility] 03/14/2024 4:58 PM [facility] Disclaimer Test performed at [facility], [address] [place], [place], [address]. *The established laboratory minimum viability is 70%. [...] high complexity clinical testing. 03/14/2024 4:58 PM HAND WEAVER [facility] Embedded Images 4:58 PM HAND WEAVER [facility] Number of markers 19 were performed. A-2 Flow CD10 A-3 Flow CD13 A-5 Flow CD20 A-11 Flow CD2 A-13 Flow CD14 A-16 Flow CD117 A-17 Flow CD11b A-18 Flow CD11c A-1 Flow CD5 A-4 Flow CD19 A-6 Flow CD33 A-7 Flow CD34 A-8 Flow CD45 A-12 Flow CD7 A-14 Flow CD56 A-15 Flow CD64 A-9 [place]+CD19+ A-10 Lambda+CD19+ A-19 Flow HLA-DR 03/14/2024 4:58 PM HAND WEAVER [facility] Blood BLOOD SPECIMEN / Unknown Lab Venipuncture / Unknown 03/14/2024 10:32 AM HAND WEAVER 03/14/2024 1:49 PM HAND WEAVER Ghanshyam Dewey PA-C LAB - PATHOLOGY/CYTO LOGY ORDERABLES Performing Organization Address [facility]/State/[facility] Co de Phone Number [facility] [address] [phone] * CYTOMEGALOVIRUS (CMV) QUANTITATIVE PLASMA (03/13/2024 11:26 PM HAND WEAVER) CMV Quant by PCR, Interp Not detected Not detected 03/14/2024 9:00 AM HAND WEAVER [facility] Blood BLOOD SPECIMEN / Unknown Venipuncture / Unknown 03/13/2024 11:26 PM HAND WEAVER 03/13/2024 11:37 PM HAND WEAVER Narrative [facility] - 03/14/2024 9:00 AM HAND WEAVER The Cytomegalovirus (CMV) DNA analysis utilized a [...] Soler MD LAB - CHEMISTRY OR DERABLES [facility] [address] [place], [place] [address], [facility] [phone] * [place] VIRUS QUANT BLOOD STL (03/13/2024 11:26 PM HAND WEAVER) [facility] EBV Quant by PCR, Interp Not detected Not detected 03/14/2024 8:56 AM [facility] Specimen Type Plasma 03/14/2024 8:56 AM [facility] Blood BLOOD SPECIMEN / Unknown Venipuncture / Unknown 03/13/2024 11:26 PM HAND WEAVER 03/13/2024 11:37 PM HAND WEAVER Narrative [facility] - 03/14/2024 8:56 AM HAND WEAVER The [place] viral (EBV) DNA analysis utilized [...] MD LAB - CHEMISTRY OR DERABLES [facility] [address] [place] [address], [facility] [phone] * D-DIMER (03/13/2024 11:26 PM HAND WEAVER) D-Dimer Quantitative <0.27 <=0.50 mcg/mL FEU 03/14/2024 12:00 AM HAND WEAVER [facility] Comment: In the absence [...] Unknown Venipuncture / Unknown 03/13/2024 11:26 PM HAND WEAVER 03/13/2024 11:37 PM HAND WEAVER Ted Soler MD LAB - COAGULATION ORDERABLES Performing Organization Address City/[facility]/ZIP Co de Phone Number [address] [address], [facility] [phone] * FIBRINOGEN ACTIVITY (03/13/2024 11:26 PM HAND WEAVER) Pathologist [facility] Fibrinogen Clauss 362 200 - 400 mg/dL 03/13/2024 11:59 PM HAND WEAVER [facility] Blood BLOOD SPECIMEN / Unknown Venipuncture / Unknown 03/13/2024 11:26 PM HAND WEAVER 03/13/2024 11:37 PM HAND WEAVER Ted Soler MD LAB - COAGULATION ORDERABLES Performing Organization Address [facility]/ZIP Co de Phone Number [address] [address], [facility] [phone] * FISH AML+MDS PANEL BLOOD OR BONE MARROW (03/04/2024 4:13 PM HAND WEAVER) [facility] FISH AML with MDS, Therapy-Rltd AML See Note Normal 03/19/2024 4:32 PM HAND WEAVER [employer] ([facility]) Comment: Test Performed: Acute Myelogenous Leukemia [...] with the Therapy-Related AML panel probes D5S23/EGR1, D7Z1/G3W114, and MLL (KMT2A) ([employer]). A total of 200 cells were scored for each probe. Cytogenomic Nomenclature (ISCN): nuc nereyda(D5S23,EGR1,D7Z1,H2D322,KMT2A)x2[200' This result has been reviewed and approved by Charles Pablo MD, [facility] INTERPRETIVE INFORMATION: AML with MDS, Therapy-Related AML, FISH This test was developed and its performance characteristics determined by [employer]. It has not been cleared or approved by the US Food and Drug Administration. This test was performed in a CLIA certified laboratory and is intended for clinical purposes. EER AML with MDS, Therapy-Rltd AML FISH See Note 03/19/2024 4:32 PM HAND WEAVER [employer] ([facility]) Comment: Authorized individuals can access the Syll[employer]uster Enhanced Report using the following link: [email or web address] Performed By: [employer] [address] [place] [address] Telephonic Nurse: Uche Morley MD, PhD CLIA Number: [id number] Other BLOOD SPECIMEN / Unknown Collection / Unknown 03/04/2024 4:13 PM HAND WEAVER 03/04/2024 4:23 PM HAND WEAVER Cindy Garcia MD LAB - PATHOLOGY/CYTO LOGY ORDERABLES [facility]) [address] * HLA TYPING LOW/HIGH RESOLUTION DPB1 (03/04/2024 4:13 PM HAND WEAVER) Typ DNA LR DPB1 Allele #1 *04 04/29/2024 2:56 PM HAND WEAVER [facility] ([facility]) Typ DNA LR DPB1 Allele #2 *11 04/29/2024 2:56 PM HAND WEAVER [facility] ([facility]) Typ DNA HR DPB1 Allele #1 *04:01:01G 04/29/2024 2:56 PM HAND WEAVER [facility] ([facility]) Typ DNA HR DPB1 Allele #2 *11:01:01G 04/29/2024 2:56 PM HAND WEAVER [facility] ([facility]) Test Methodology RTPCR/NGS 04/29/19 2:56 PM HAND WEAVER [facility] ([facility]) Date Results Entered [id number] 04/29/2024 2:56 PM [facility] ([facility]) Comment: Methodology - Next Generation Sequencing ?? This test was developed and its performance characteristics determined by ?? the [facility]. ??It has not been cleared or [...] complexity ?? clinical laboratory testing. ??CLIA ID# [id number] ?? Performed at: [facility], [address] [place] [address] ?? [place] ?? [phone] ?? [employer] Repairer: Sandeep Jerry, Ph.D., D([facility]), Blood BLOOD SPECIMEN / Unknown Lab Venipuncture / Unknown 03/04/2024 4:13 PM HAND WEAVER 03/05/2024 9:56 AM HAND WEAVER Cindy Garcia MD LAB - BLOOD BANK ORD ERABLES [facility] ([facility]) [address] [place] [address] * HLA TYPING DNA LOW RESOLUTION DR,DQ (03/04/2024 4:13 PM HAND WEAVER) DR DQ Low Resolution DRB1-1 *07 04/29/2024 2:56 PM HAND WEAVER [facility] ([facility]) DR DQ Low Resolution DQB1-1 *02 04/29/2024 2:56 PM HAND WEAVER [facility] ([facility]) DR DQ Low Resolution DRB3-1 Negative 04/29/2024 2:56 PM HAND WEAVER [facility] ([facility]) DR DQ Low Resolution DRB3-2 Negative 04/29/2024 2:56 PM HAND WEAVER [facility] ([facility]) DR DQ Low Resolution DRB4-1 *01 04/29/2024 2:56 PM HAND WEAVER [facility] ([facility]) DR DQ Low Resolution DRB4-2 Negative 04/29/2024 2:56 PM HAND WEAVER [facility] ([facility]) DR DQ Low Resolution DRB5-1 Negative 04/29/2024 2:56 PM HAND WEAVER [facility] ([facility]) DR DQ Low Resolution DRB5-2 Negative 04/29/2024 2:56 PM HAND WEAVER [facility] ([facility]) DR DQ Low Resolution Methodology Real Time PCR 04/29/2024 2:56 PM HAND WEAVER [facility] ([facility]) DR DQ Low Resolution test date [id number] 04/29/2024 2:56 PM HAND WEAVER [facility] ([facility]) Comment: Methodology - Real-Time PCR ?? This test was developed and its performance characteristics determined by ?? the [facility]. ??It has not been cleared or [...] complexity ?? clinical laboratory testing. ??CLIA ID# [id number] ?? Performed at: [facility], [address] ?? [facility] [place] ??[phone] ?? [employer] Repairer: Sandeep Jerry, Ph.D., D([facility]), Blood BLOOD SPECIMEN / Unknown Lab Venipuncture / Unknown 03/04/2024 4:13 PM HAND WEAVER 03/05/2024 9:56 AM HAND WEAVER Cindy Garcia MD LAB - BLOOD BANK ORD ERABLES [facility] ([facility]) [address] * HLA TYPING DNA LOW RESOLUTION A,B,C (03/04/2024 4:13 PM HAND WEAVER) ABC DNA A1 *02 04/29/2024 2:56 PM HAND WEAVER [facility] ([facility]) ABC DNA A2 *30 04/29/2024 2:56 PM HAND WEAVER [facility] ([facility]) ABC DNA B1 *13 04/29/2024 2:56 PM HAND WEAVER [facility] ([facility]) ABC DNA B2 *44 04/29/2024 2:56 PM HAND WEAVER [facility] ([facility]) ABC DNA BW1 4 04/29/2024 2:56 PM HAND WEAVER [facility] ([facility]) ABC DNA BW2 4 04/29/2024 2:56 PM HAND WEAVER [facility] ([facility]) ABC DNA C1 *06 04/29/2024 2:56 PM HAND WEAVER [facility] ([facility]) ABC DNA C2 *16 04/29/2024 2:56 PM HAND WEAVER [facility] ([facility]) ABC DNA Methodology Real Time PCR 04/29/2024 2:56 PM HAND WEAVER [facility] ([facility]) ABC DNA Test Date [id number] 2:56 PM HAND WEAVER [facility] ([facility]) Comment: Methodology - Real-Time PCR ?? This test was developed and its performance characteristics determined by ?? the [facility]. ??It has not been cleared or [...] complexity ?? clinical laboratory testing. ??CLIA ID# [id number] ?? Performed at: [facility], [address] [place] [address] ?? [place], [place] ??[address] ?? [employer] Repairer: Sandeep Jerry, Ph.D., D([facility]), Blood BLOOD SPECIMEN / Unknown Lab Venipuncture / Unknown 03/04/2024 4:13 PM HAND WEAVER 03/05/2024 9:56 AM HAND WEAVER Cindy Garcia MD LAB - BLOOD BANK ORD ERABLES Performing Organization Address [facility] Co de Phone Number [facility] ([id number]) [address] [place] [address] * HLA TYPING DNA HIGH RESOLUTION DR (03/04/2024 4:13 PM HAND WEAVER) Blood BLOOD SPECIMEN / Unknown Lab Venipuncture / Unknown 03/04/2024 4:13 PM HAND WEAVER 03/05/2024 9:56 AM HAND WEAVER Narrative [facility] ([employer]) - 04/29/2024 4:00 PM HAND WEAVER See Scanned Report Cindy Garcia MD LAB - BLOOD BANK ORD ERABLES Performing Organization Address [facility] Co de Phone Number [facility] ([id number]) [address] [place] [address] * HLA TYPING DNA HIGH RESOLUTION DQ (03/04/2024 4:13 PM HAND WEAVER) Blood BLOOD SPECIMEN / Unknown Lab Venipuncture / Unknown 03/04/2024 4:13 PM HAND WEAVER 03/05/2024 9:56 AM HAND WEAVER Narrative [facility] ([employer]) - 04/29/2024 4:00 PM HAND WEAVER See Scanned Report Cindy Garcia MD LAB - BLOOD BANK ORD ERABLES Performing Organization Address [facility] Co de Phone Number [facility] ([employer]) [address] [place] [address] * HLA TYPING DNA HIGH RESOLUTION B (03/04/2024 4:13 PM HAND WEAVER) Blood BLOOD SPECIMEN / Unknown Lab Venipuncture / Unknown 03/04/2024 4:13 PM HAND WEAVER 03/05/2024 9:56 AM HAND WEAVER Narrative [facility] ([id number]) - 04/29/2024 4:00 PM HAND WEAVER See Scanned Report Cindy Garcia MD LAB - BLOOD BANK ORD ERABLES Performing Organization Address City/[facility]/ZIP Co de Phone Number [facility] ([employer]) [address] [place] [address] * HLA TYPING DNA HIGH RESOLUTION A (03/04/2024 4:13 PM HAND WEAVER) Blood BLOOD SPECIMEN / Unknown Lab Venipuncture / Unknown 03/04/2024 4:13 PM HAND WEAVER 03/05/2024 9:56 AM HAND WEAVER Narrative [facility] ([id number]) - 04/29/2024 4:01 PM HAND WEAVER See Scanned Report Cindy Garcia MD LAB - BLOOD BANK ORD ERABLES Performing Organization Address City/[facility]/ZIP Co de Phone Number [facility] ([employer]) [address] [place] [address] * HLA TYPING DNA HIGH RESOLUTION C (03/04/2024 4:13 PM HAND WEAVER) Blood BLOOD SPECIMEN / Unknown Lab Venipuncture / Unknown 03/04/2024 4:13 PM HAND WEAVER 03/05/2024 9:56 AM HAND WEAVER Narrative [facility] ([id number]) - 04/29/2024 4:01 PM HAND WEAVER See Scanned Report Cindy Garcia MD LAB - BLOOD BANK ORD ERABLES [facility] ([id number]) [address] * CHROMOSOME ANALYSIS LEUKEMIA BLD (03/04/2024 4:13 PM HAND WEAVER) Chromosome Analysis Leukemic Blood See Note Normal 03/23/2024 12:39 PM [facility] [employer] ([facility]) Comment: Test Performed: Chromosome Analysis [...] FISH AML/PML and TAML MDS performed under [facility] accessions [id number] and [id number] were NORMAL. This result has been reviewed and approved by Margaret Roberson, PhD, [facility] INTERPRETIVE INFORMATION: Chromosome Analysis, ?Leukemic Blood This test was developed and its performance characteristics determined by [employer]. It has not been cleared or approved by the US Food and Drug Administration. This test was performed in a CLIA certified laboratory and is intended for clinical purposes. EER Chromosome Analysis Leukemic See Note 03/23/2024 12:39 PM [facility] [employer] ([facility]) Comment: Authorized individuals can access the Syllabuster Enhanced Report using the following link: [email or web address] Performed By: [employer] [address] [place] [address] Telephonic Nurse: Uche Morley MD, PhD CLIA Number: [id number] Blood BLOOD SPECIMEN / Unknown Lab Venipuncture / Unknown 03/04/2024 4:13 PM HAND WEAVER 03/22/2024 5:28 PM HAND WEAVER Cindy Garcia MD LAB - PATHOLOGY/CYTO LOGY ORDERABLES Performing Organization Address [facility]/ZIP Co de Phone Number [facility] ([facility]) [address] [place], [place] [address] * HIV-1 HIV-2 ANTIBODY + HIV P24 AG PANEL (New on 08/24) (03/04/2024 4:13 PM HAND WEAVER) Pathologist [facility] HIV Antigen/Antibod y 1 & 2 Non-reacti ve Non-react carlos 03/04/2024 5:12 PM HAND WEAVER [facility] Comment:No Laboratory eviden ce of HIV infection. Blood BLOOD SPECIMEN / Unknown Lab Venipuncture / Unknown 03/04/2024 4:13 PM HAND WEAVER 03/04/2024 4:23 PM HAND WEAVER Cindy Garcia MD LAB - CHEMISTRY ORDNatalie MONREAL Performing Organization Address City/[facility]/ZIP Co de Phone Number [facility] [address] [address], [facility] [phone] * BCR-ABL1 CML+AML PCR QUANT PNL (03/04/2024 4:13 PM HAND WEAVER) Pathologist [facility] Interpretation TNP 03/13/2024 5:08 PM HAND WEAVER [facility] ([facility]) Comment: Unable to obtain results. Repeated efforts to analyze this specimen have been unsuccessful. LOW CONTROL GENE COPY NUMBER INDICATED SPECIMEN DEGRADATION. Director Review Comment 5:08 PM HAND WEAVER [facility] ([facility]) Comment: Dawood Sarabia, PhD, [facility] ?Director, Molecular Oncology ?[facility] ?[place] [address] ? Background Comment 03/13/2024 5:08 PM HAND WEAVER [facility] ([facility]) Comment: This assay can detect three [...] as indicated. Methodology Comment 03/13/2024 5:08 PM HAND WEAVER [facility] ([facility]) Comment: Total RNA is isolated from [...] developed and its performance characteristics determined by [facility]. It has not been cleared or approved by the Food and Drug Administration. Blood BLOOD SPECIMEN / Unknown Lab Venipuncture / Unknown 03/04/2024 4:13 PM HAND WEAVER 03/04/2024 4:24 PM HAND WEAVER Narrative [facility] ([facility]) - 03/13/2024 5:08 PM HAND WEAVER Performed at: ??01 - [facility] [address] [place], [place] ??[id number] [employer] Repairer: Cinthya Roper [facility], Phone: ??[phone] Performed at: ??02 - [facility] [address] [place], [place] ??[id number] [employer] Repairer: Cinthya Roper [facility], Phone: ??[phone] Cindy Garcia MD LAB - CHEMISTRY CHELI MONREAL [facility]) [address] [place] [id number] * TSH REFLEX FREE T4 (03/04/2024 4:13 PM HAND WEAVER) Pathologist [facility] TSH 0.961 0.350 - 4.940 uIU/mL 03/04/2024 5:29 PM HAND WEAVER [facility] Blood BLOOD SPECIMEN / Unknown Lab Venipuncture / Unknown 03/04/2024 4:13 PM HAND WEAVER 03/04/2024 4:27 PM HAND WEAVER Cindy Garcia MD LAB - CHEMISTRY CHELI MONREAL Performing Organization Address City/[facility]/ZIP Co de Phone Number [address] [address], [facility] [phone] * RHEUMATOID FACTOR BLOOD QUANTITATIVE (03/04/2024 4:13 PM HAND WEAVER) [facility] Rheumatoid Factor <15 <30 IU/mL 03/04/2024 4:57 PM HAND WEAVER [facility] Rheumatoid Factor Screen Negative Negative 03/04/2024 4:57 PM HAND WEAVER [facility] Blood BLOOD SPECIMEN / Unknown Lab Venipuncture / Unknown 03/04/2024 4:13 PM HAND WEAVER 03/04/2024 4:23 PM HAND WEAVER Cindy Garcia MD LAB - CHEMISTRY CHELI MONREAL [address] [address], [place] [phone] * CYTOMEGALOVIRUS ANTIBODY IGG BLOOD (03/04/2024 4:13 PM HAND WEAVER) Pathologist [facility] Cytomegalovirus Antibody IgG <0.20 <=0.70 U/mL 03/05/2024 9:27 PM HAND WEAVER [facility] ([facility]) Comment: INTERPRETIVE INFORMATION: Cytomegalovirus Antibody, IgG [...] laboratory at the same time. Performed By: [employer] [facility] [address] [place] [address] Telephonic Nurse: Uche Morley MD, PhD CLIA Number: [id number] Blood BLOOD SPECIMEN / Unknown Lab Venipuncture / Unknown 03/04/2024 4:13 PM HAND WEAVER 03/04/2024 4:23 PM HAND WEAVER Cindy Garcia MD LAB - CHEMISTRY CHELI MONREAL Performing Organization Address [facility] de Phone Number [facility] ([facility]) [address] [place] [address], [facility] * C-REACTIVE PROTEIN (03/04/2024 4:13 PM HAND WEAVER) C-Reactive Protein 0.5 <=0.5 mg/dL 03/04/2024 4:56 PM HAND WEAVER [facility] Blood BLOOD SPECIMEN / Unknown Lab Venipuncture / Unknown 03/04/2024 4:13 PM HAND WEAVER 03/04/2024 4:27 PM HAND WEAVER Cindy Garcia MD LAB - CHEMISTRY CHELI MONREAL [facility] [address] [place] [address], [facility] [phone] * MARLINE BLOOD SCREEN W/REFLEX TITER (03/04/2024 4:13 PM HAND WEAVER) MARLINE IgG None Detected None Detected 03/05/2024 11:42 PM HAND WEAVER [facility] ([facility]) Comment: If suspicion of connective tissue disease is strong and MARLINE EIA is negative, consider testing for MARLINE by IFA ([id number]). INTERPRETIVE INFORMATION: Anti-Nuclear Antibodies (MARLINE), IgG by TOÑA Antinuclear Antibodies (MARLINE), IgG by TOÑA: MARLINE specimens are screened using enzyme-linked immunosorbent assay (TÑOA) methodology. All TOÑA results reported as Detected are further tested by indirect fluorescent assay (IFA) using HEp-2 substrate with an IgG-specific conjugate. The MARLINE TOÑA screen is designed to detect antibodies against dsDNA, histones, SS-A (Ro), SS-B (La), Pimentel, Pimentel/CHILD MONITOR, Scl-70, Mey-1, centromeric proteins, other antigens extracted from the HEp-2 cell nucleus. MARLINE TOÑA assays have been reported to have lower sensitivities than MARLINE IFA for systemic autoimmune rheumatic diseases (SARD). Negative results do not necessarily rule out SARD. Performed By: [employer] [address] [place] [address] Telephonic Nurse: Uche Morley MD, PhD CLIA Number: [id number] Blood BLOOD SPECIMEN / Unknown Lab Venipuncture / Unknown 03/04/2024 4:13 PM HAND WEAVER 03/04/2024 4:23 PM HAND WEAVER Cindy Garcia MD LAB - CHEMISTRY CHELI MONREAL [facility] [employer] [facility]) [address] * ZINC BLOOD (03/04/2024 4:13 PM HAND WEAVER) [facility] Zinc 62.4 60.0 - 120.0 ug/dL 03/06/2024 6:35 AM HAND WEAVER [facility] [employer] ([facility]) Comment: INTERPRETIVE INFORMATION: Zinc, Serum or [...] developed and its performance characteristics determined by [employer]. It has not been cleared or approved by the US Food and Drug Administration. This test was performed in a CLIA certified laboratory and is intended for clinical purposes. Performed By: [facility] [address] [place] [address] Telephonic Nurse: Uche Morley MD, PhD CLIA Number: [id number] Blood BLOOD SPECIMEN / Unknown Lab Venipuncture / Unknown 03/04/2024 4:13 PM HAND WEAVER 03/04/2024 4:23 PM HAND WEAVER Cindy Garcia MD LAB - CHEMISTRY ORDE [facility]) [address] * COPPER BLOOD (03/04/2024 4:13 PM HAND WEAVER) [facility] Copper 108.5 70.0 - 140.0 ug/dL 03/06/2024 6:35 AM HAND WEAVER [facility] ([facility]) Comment: INTERPRETIVE INFORMATION: Copper, Serum or [...] developed and its performance characteristics determined by [employer]. It has not been cleared or approved by the US Food and Drug Administration. This test was performed in a CLIA certified laboratory and is intended for clinical purposes. Performed By: [facility] [employer] [address] [place] [address] Telephonic Nurse: Uche Morley MD, PhD CLIA Number: [id number] Blood BLOOD SPECIMEN / Unknown Lab Venipuncture / Unknown 03/04/2024 4:13 PM HAND WEAVER 03/04/2024 4:23 PM HAND WEAVER Cindy Garcia MD LAB - CHEMISTRY ORDE RABNIC Performing Organization Address City/[facility]/ZIP Co de Phone Number [facility] ([facility]) [address] [place] [address], [facility] * ERYTHROCYTE SEDIMENTATION RATE (03/04/2024 4:13 PM HAND WEAVER) [facility] Erythrocyte Sedimentation Rate Westergren 14 0 - 20 MM/HR 03/04/2024 5:10 PM HAND WEAVER [facility] Blood BLOOD SPECIMEN / Unknown Lab Venipuncture / Unknown 03/04/2024 4:13 PM HAND WEAVER 03/04/2024 4:27 PM HAND WEAVER Cindy Garcia MD LAB - HEMATOLOGY ORD HEMALATHA Performing Organization Address City/[facility]/ZIP Co de Phone Number [place] [phone], [facility] [phone] * HEPATITIS B SURFACE ANTIBODY (03/04/2024 4:13 PM HAND WEAVER) [facility] Hepatitis B Virus Surface Antibody Non-react carlos Non-react carlos 03/04/2024 5:12 PM [facility] Comment: < 8 mIU/mL Hepatitis B surface Antibody (HBsAb). Nonreactive for HBsAb - individual is considered not immune to Hepatitis B Virus infection. Hepatitis B Surface Antibody Quantitative 0.3 <8.0 mIU/mL 03/04/2024 5:12 PM [facility] Comment: Hepatitis B Surface Antibody Numeric Result Interpretation: ? Nonreactive: ?<8.0 mIU/mL ? Indeterminate: ??8.0 - 12.0 mIU/mL ? Reactive: ?>12.0 mIU/mL ? Blood BLOOD SPECIMEN / Unknown Lab Venipuncture / Unknown 03/04/2024 4:13 PM HAND WEAVER 03/04/2024 4:23 PM HAND WEAVER Cindy Garcia MD LAB - CHEMISTRY CHELI MONREAL Performing Organization Address City/[facility]/ZIP Co de Phone Number [address] [address], [place] [phone] * HEPATITIS B CORE ANTIBODY TOTAL (03/04/2024 4:13 PM HAND WEAVER) Pathologist [facility] HBc Antibody Total Non-reacti ve Non-reacti ve 03/04/2024 5:12 PM HAND WEAVER [facility] Blood BLOOD SPECIMEN / Unknown Lab Venipuncture / Unknown 03/04/2024 4:13 PM HAND WEAVER 03/04/2024 4:23 PM HAND WEAVER Cindy Garcia MD LAB - CHEMISTRY CHELI MONREAL Performing Organization Address [facility] Co de Phone Number [address] [address], [place] [phone] * FOLATE (03/04/2024 4:13 PM HAND WEAVER) Pathologist [facility] Folate 17.7 7.0 - 31.4 ng/mL 03/04/2024 5:29 PM HAND WEAVER [facility] Blood BLOOD SPECIMEN / Unknown Lab Venipuncture / Unknown 03/04/2024 4:13 PM HAND WEAVER 03/04/2024 4:27 PM HAND WEAVER Cindy Garcia MD LAB - CHEMISTRY CHELI MONREAL Performing Organization Address [facility]/ZIP Co de Phone Number [address] [address], [place] [phone] * VITAMIN B12 (03/04/2024 4:13 PM HAND WEAVER) Pathologist [facility] Vitamin B12 524 213 - 746 pg/mL 03/04/2024 5:29 PM HAND WEAVER [facility] Blood BLOOD SPECIMEN / Unknown Lab Venipuncture / Unknown 03/04/2024 4:13 PM HAND WEAVER 03/04/2024 4:27 PM HAND WEAVER Cindy Garcia MD LAB - CHEMISTRY CHELI MONREAL [facility] [address] [place] [address], [place] [phone] * (ABNORMAL) IRON + TRANSFERRIN PANEL [w/Transferrin Sat % + TIBC] (03/04/2024 4:13 PM HAND WEAVER) [facility] Iron 31(L) 50 - 175 ug/dL 03/04/2024 4:53 PM [facility] Transferrin 257 174 - 382 mg/dL 03/04/2024 4:53 PM [facility] Transferrin Saturation % 10(L) 16 - 50 % 03/04/2024 4:53 PM [facility] TIBC Calculated 321 240 - 450 ug/dL 03/04/2024 4:53 PM [facility] Blood BLOOD SPECIMEN / Unknown Lab Venipuncture / Unknown 03/04/2024 4:13 PM HAND WEAVER 03/04/2024 4:23 PM HAND WEAVER Cindy Garcia MD LAB - CHEMISTRY CHELI MONREAL [address] [address], [place] [phone] * HEPATITIS C ANTIBODY (03/04/2024 4:13 PM HAND WEAVER) Pathologist [facility] Hepatitis C Antibody Non-react carlos Non-reac tive 03/04/2024 5:12 PM [facility] Comment:Hepatitis C Antibody screen indicates no serologic evidence of past or current infection with Hepatitis C Virus. Patients with unexplained liver disease who are immunocompromised or suspected of having acute Hepatitis C infection may benefit from Nucleic Acid Test (YUSRA) for Hepatitis C Viral RNA to confirm Hepatitis C status. Blood BLOOD SPECIMEN / Unknown Lab Venipuncture / Unknown 03/04/2024 4:13 PM HAND WEAVER 03/04/2024 4:23 PM HAND WEAVER Cindy Garcia MD LAB - CHEMISTRY CHELI MONREAL [facility] [address] [place] [address], [place] [phone] * (ABNORMAL) FERRITIN (03/04/2024 4:13 PM HAND WEAVER) Ferritin 21(L) 22 - 275 ng/mL 03/04/2024 5:12 PM HAND WEAVER [facility] Blood BLOOD SPECIMEN / Unknown Lab Venipuncture / Unknown 03/04/2024 4:13 PM HAND WEAVER 03/04/2024 4:23 PM HAND WEAVER Cindy Garcia MD LAB - CHEMISTRY CHELI MONREAL [facility] [address] [place] [address], [place] [phone] from Last 3 Months Advance Directives * Full Code (Latest Code Status on File) Date Activated Date Inactivated Comments 03/13/2024 9:41 PM 03/23/2024 2:56 PM Care Teams Radiagraph Operator Relationship Specialty Start Date End Date Timothy Banks MD [address] [place] [address] PCP - General 10/19/18 Cindy Garcia MD [address] [place] [address] Self Pay Representative/Oncologis t Hematology and Oncology 03/24/24
--- OUTSIDE RECORDS SUMMARY | 2024-05-02 14:12 | XMS_ITS ---
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 Treatments may have been administered in another system.
--- OUTSIDE RECORDS SUMMARY | 2024-05-02 14:12 | XMS_ITS | Encounter Summary ---
Author Organization [facility] Address [address] [place] [address] Phone Care Team Providers Care Sales Manager Name Role Phone Timothy Banks MD Primary Care Provider [phone] Encounter Details Date Type Department Care Team (Late st Contact Info) Description 01/25/2024 Telephone [facility] Cardiology [address] [facility] Advanced Medicine 8th [place] [address] [place] [address] Alberto Gallegos MD [address] [facility] [address] [place] [address] Social History Tobacco Use Types Packs/Day Years Used Date Smoking Tobacco: Never Smokeless Tobacco: Never Alcohol Use Standard Drinks/Week Comments Yes 0 (1 standard drink = 0.6 oz pur e alcohol) Sex and Gender Information Value Date Recorded Sex Assigned at Not on file 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
--- OUTSIDE RECORDS SUMMARY | 2024-05-02 14:12 | XMS_ITS | Clinical Summary ---
Author Organization 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
--- OUTSIDE RECORDS SUMMARY | 2024-05-02 14:12 | XMS_ITS | Referral Summary ---
Author Organization [facility] [address] [place] [address] [address] [place] [address] Care Team Providers Care Computer Networking Instructor Adjunct Name Role Phone Timothy Banks MD Primary Care Provider Encounters Date Type Department Care Team Description 04/25/2024 3:00 PM CARD RUNNER Ancillary Procedure [facility] Cardiology [facility] 8th [place] [address] [place] [phone] SVT (supraventricular tachycardia) (HCC) 04/25/2024 11:45 AM CARD RUNNER Office Visit [facility] Cardiology [address] [place] [address] 8th [place] [address] [place] [address] Alberto Gallegos MD SVT (supraventricular tachycardia) (HCC) 03/27/2024 3:15 PM CARD RUNNER Office Visit [facility] Cardiology [address] [facility] [address] [place] [address] Jayro Kaminski MD SVT (supraventricular tachycardia) ([facility]) (Primary Dx); QAMAR (obstructive sleep apnea); [facility] current use of anticoagulant therapy; RBBB; Hypertensive left ventricular hypertrophy, without heart failure; LVH (left ventricular hypertrophy); Bilateral lower extremity edema 03/22/2024 Telephone [facility] Hematology [address] [facility] Floor [address] [place] [address] Adilene Gonsalves RN 02/02/2024 Telephone [facility] Cardiology [facility] 8th [place] [address] [place] [address] Sally iWsdom 01/31/2024 Telephone [facility] Hematology [address] [facility] [address] [place] [address] Adilene Gonsalves RN from Last 3 Months Allergies Active Allergy [...] 2 Active apixaban (ELIQUIS) 5 mg tabletIndications :ocean transportation intermediary current use of anticoagulant therapy Take 1 [...] beats 03/31/2016 Overview (07/21/2016): Premature ventricular contraction [facility] current use of anticoagulant therapy 1 06/01/2015 [...] on file Legal Sex Male 4:19 AM CARD RUNNER Gender Identity Male 01/12/2020 7:43 PM CDT Sexual Orientation Straight 01/12/2020 7: 43 PM CDT Last Filed Vital Signs Vital Sign Reading Time Taken Comments Blood Pressure 142/82 04/25/2024 11:22 AM CARD RUNNER Pulse 77 04/25/2024 11:22 AM CARD RUNNER Temperature 36.3 ??C (97.4 ??F) 08/24/2023 9:29 AM CD T Respiratory Rate 18 08/24/2023 9:29 AM CDT Oxygen Saturation 97% 04/25/2024 11:22 AM CARD RUNNER Inhaled Oxygen Concentration - - Weight 97.8 kg (215 lb 9.6 oz) 04/25/2024 11:22 AM CARD RUNNER Height 185.4 cm (6' 1 ) 04/25/2024 11:22 AM CARD RUNNER Body Mass Index 28.44 04/25/2024 11:22 AM CARD RUNNER Plan of Treatment Not on file Procedures Procedure Name Priority Date/Time Associated Diagnosis Comments ECG 12-LEAD Routine 04/25/2024 11:28 AM CARD RUNNER SVT (supraventricular tachycardia) (HCC) from Last 3 Months Results * ECG 12 lead (04/25/2024 11:28 AM CARD RUNNER) us Alberto Gallegos MD ECG ORDERABLES Final R esult from Last 3 Months Insurance [id number] [place] [id number] AET MED[employer] [address] [place] [phone] A[employer] MED[employer] [address] [place] [id number] A[employer] MED[employer] Care Teams Computer Networking Instructor Adjunct Relationship Specialty Start Date End Date Timothy Banks MD [facility] - General 07/08/16
--- OUTSIDE RECORDS SUMMARY | 2024-05-02 14:12 | XMS_ITS | Encounter Summary ---
Author Organization [facility] Address [address] [place] [address] Care Team Providers Care Veneer Trimmer Name Role Phone Timothy Banks MD Primary Care Provider [phone] Encounter Details Date Type Department Care Team (Late st Contact Info) Description 04/25/2024 Orders Only [facility] Oncology and Hematology - [place] [address] [facility] [address] [place] [address] Frank Singh MD [address] [facility] [address] [place] [address] Social History Tobacco Use Types Packs/Day Years Used Date Smoking Tobacco: Never Smokeless Tobacco: Never Alcohol Use Standard Drinks/Week Comments Yes 0 (1 standard drink = 0.6 oz pur e alcohol) Very Ocasionally Sex and Gender Information Value Date Recorded Sex Assigned at Male 04/05/2024 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 Legal Sex Male 10:53 AM CDT Gender Identity Male 04/05/2024 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 Sexual Orientation Not on file documented as of this encounter Plan of Treatment Not on file documented as of this encounter Procedures Procedure Name Priority Date/Time Associated Diagnosis Comments BASIC METABOLIC PANEL Routine 04/25/2024 4:21 PM GRIZZLY WORKER documented in this encounter Results * BASIC METABOLIC PANEL (04/25/2024 4:21 PM GRIZZLY WORKER) Blood Frank Singh MD CHEMISTRY ORDERABLES Final Resu lt documented in this encounter Visit Diagnoses Not on filedocumented in this encounter Care Teams Veneer Trimmer Relationship Specialty Start Date End Date Timothy Banks MD [address] [place] [address] PCP - General Family Practice 02/01/24 documented as of this encounter
--- OUTSIDE RECORDS SUMMARY | 2024-05-02 14:12 | XMS_ITS | Encounter Summary ---
Author Organization [facility] Address [address] [place] [address] Care Team Providers Care College Instructor Name Role Phone Timothy Banks MD Primary Care Provider [phone] Cindy Garcia MD Unavailable Encounter Details Date Type Department Care Team (Late st Contact Info) Description 02/12/2024 Lab Requisition [facility] - Pathology Lab [address] [place] [address] Rommel Dinh MD [address] [facility] [address] [place] [address] Decreased white blood cell count, unspecified Social History Tobacco Use Types Packs/Day Years Used Date Smoking Tobacco: Never Assessed Sex and Gender Information Value Date Recorded Sex Assigned at Male 03/05/2024 8:04 AM 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 Gender Identity Male 03/05/2024 8:04 AM 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 Sexual Orientation Straight 03/05/2024 8: 04 AM 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 documented as of this encounter Plan of Treatment Upcoming Encounters Date Type Department Care Team (Late st Contact Info) Description 05/13/2024 10:30 AM 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 Appointment [facility] [address] [place] [address] 05/14/2024 9:00 AM 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 Appointment [facility] [address] [place] [address] 05/15/2024 10:00 AM 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 Appointment [facility] [address] [place] [address] 05/15/2024 1:30 PM 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 Appointment [facility] [address] [place] [address] [place] [address] [place] [address] 05/16/2024 9:00 AM 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 Appointment [facility] [address] [place] [address] 05/17/2024 9:00 AM 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 Appointment [facility] [address] [place] [address] documented as of this encounter Procedures Procedure Name Priority Date/Time Associated Diagnosis Comments FLOW CYTOMETRY BONE MARROW Routine 02/12/2024 9:20 AM 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 Decreased white blood cell count, unspecified documented in this encounter Results * FLOW CYTOMETRY BONE MARROW (02/12/2024 9:20 AM 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) Case Report Flow Cytometry ?Case: [id number] ? Authorizing Provider: ??Rommel Dinh ? Collected: ? 02/12/2024 09:20 AM ? MD Luke ? Ordering Location: ? [facility] - ??Received: ?02/12/2024 12:12 PM ? Pathology Lab ? Pathologist: ? Daniela Bronson MD ? Specimen: ?Bone Marrow ? 02/12/2024 3:44 PM [facility] Final Diagnosis [...] on 02/12/2024 at 1539. 02/12/2024 3:44 PM [facility] Flow Cytometry Interpretation Viability: 97% [...] specimen has been reviewed for quality assurance lead purposes. Review the bone marrow aspirate smears reveals 20% blasts with only rare promyelocytes identified. Carolyn rods are not seen. 02/12/2024 3:44 PM [facility] Flow Cytometry Results Differential Result Comment Flow Cell Count /uL 20,700 Total Viability % 97.0 Lymphocytes % 12 Dim CD45 Region % 44 Monocytes % 1 Granulocytes % 42 02/12/2024 3:44 PM [facility] Reason for test Decreased white blood cell count, unspecified 02/12/2024 3:44 PM [facility] Client Specimen ID # [id number] 02/12/2024 3:44 PM [facility] Number of markers 29 were [...] CD56 A-20 Flow CD64 A-28 cyCD22 A-29 gmWU90w A-16 Creola+CD19+ A-17 Lambda+CD19+ A-24 Flow HLA-DR A-25 Flow MPO A-26 Flow TdT A-27 cyCD3 02/12/2024 3:44 PM [facility] Pathologist Location at [facility] 02/12/2024 3:44 PM [facility] Disclaimer Test performed at [facility], [address] [place] [address], [address]. *The established laboratory minimum viability is 70%. [...] high complexity clinical testing. 02/12/2024 3:44 PM 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 [facility] Embedded Images 3:44 PM 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 [facility] Pathology/Cytolo gy BONE MARROW SPECIMEN / Unknown 02/12/2024 9:20 AM 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 02/12/2024 12:12 PM 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 Rommel Dinh MD LAB - PATHO LOGY/CYTOLOGY ORDERABLES [facility] [address] [phone] documented in this encounter Visit Diagnoses Diagnosis Decreased white blood cell count, unspecified documented in this encounter Care Teams College Instructor Relationship Specialty Start Date End Date Timothy Banks MD [address] [place] [phone] PCP - General 10/19/18 Cindy Garcia MD [address] [place] [address] Family Counselor/Oncologis t Hematology and Oncology 03/24/24 documented as of this encounter
--- OUTSIDE RECORDS SUMMARY | 2024-05-02 14:12 | XMS_ITS | Patient Health Summary ---
Author Organization [facility] Address [address] [place] [address] Care Team Providers Care Billet Sawyer Name Role Phone Timothy Banks MD Primary Care Provider [phone] Cindy Garcia MD Unavailable Note from [facility],non-owned Affiliates and Associated Physician Practices is amultiple site organization consisting of ambulatory clinics and hospital sitesin [place], [place], [place] and [place]. This disclosure is being madepursuant to the Care Everywhere program and may not contain all information available regarding this patient. Last updated 17.[facility] Allergies * Contrast-Gadolinium Agents For Mri(Urticaria) -Medium Criticality Medications * Be aware that medications may not be up to date on this document. Alwaysverify current medications with the patient. * lansoprazole (Prevacid) 30 MG capsule Take [...] (one) tablet by mouth once daily * acetaminophen (Tylenol) 325 MG tablet(Started 03/23/2024) Take 2 (two) tablets by mouth every 4 hours as needed Maximum allowable Acetaminophen amount = 4 Grams (4000 mg) / 24 hours. * polyethylene glycol 3350 (Miralax) 17 g [...] tablet by mouth every 2 days * levoFLOXacin (Levaquin) 500 MG tablet(Started 04/18/2024) Take 1 (one) tablet by mouth every 24 hours 3 refills by 04/18/2025 * apixaban (Eliquis) 2.5 MG tablet(Started 04/18/2024) Take 1 (one) tablet by mouth 2 times daily 3 refills by 04/18/2025 * posaconazole (Noxafil) 100 MG tablet(Started 04/18/2024) Take 3 (three) tablets by mouth daily with dinner for 90 days 2 refills by 04/18/2025 * venetoclax (Venclexta) 100 MG tablet(Started 04/18/2024) Take 1 (one) tablet by mouth daily with food Reasons: Acute Myelocytic Leukemia 11 refills by 04/18/2025 * valACYclovir (Valtrex) 500 MG tablet(Started 04/22/2024) Take 1 (one) tablet by mouth 2 times daily 3 refills by 04/22/2025 * allopurinol (Zyloprim) 300 MG tablet(Started 04/22/2024) Take 1 (one) tablet by mouth once daily after breakfast Ended Medications* venetoclax (Venclexta) 100 MG tablet(Started 03/13/2024) (Discontinued) Take 1 (one) tablet by mouth daily with food Reasons: Acute Myelocytic Leukemia 11 refills by 03/13/2025 * posaconazole (Noxafil) 100 MG tablet(Started 03/13/2024)(Discontinued) Take 3 (three) tablets by mouth daily with dinner for 90 days 2 refills by 03/13/2025 * valACYclovir (Valtrex) 500 MG tablet(Started 03/23/2024)(Discontinued) Take 1 (one) tablet by mouth 2 times daily * levoFLOXacin (Levaquin) 500 MG tablet(Started 03/23/2024)(Discontinued) Take 1 (one) tablet by mouth every 24 hours * apixaban (Eliquis) 2.5 MG tablet(Started 03/23/2024)(Discontinued) Take 1 (one) tablet by mouth 2 times daily * allopurinol (Zyloprim) 300 MG tablet(Started 03/23/2024)(Discontinued) Take 1 (one) tablet by mouth once daily after breakfast * venetoclax (Venclexta) 100 MG tablet(Started 04/05/2024)(Discontinued) Take 1 (one) tablet by mouth daily with food Reasons: Acute Myelocytic Leukemia 11 refills by 04/05/2025 * venetoclax (Venclexta) 100 MG tablet(Started 04/05/2024)(Discontinued) Take 1 (one) tablet by mouth daily with food Reasons: Acute Myelocytic Leukemia 11 refills by 04/05/2025 * valACYclovir (Valtrex) 500 MG tablet(Started 04/18/2024)(Discontinued) Take 1 (one) tablet by mouth 2 times daily 3 refills by 04/18/2025 Active Problems Problem Noted Date Diagnosed Date [...] and heating? Not hard at all 03/13/2024 [facility] [place] [facility] Occup[facility] - Occupational Stress [...] any time in the past 12 m onths, were you homeless or living in a intermediate (including now)? No 03/13/2024 Sex and Gender Information Value Date Recorded Sex Assigned at Male 03/05/2024 8:04 AM COFFEE MAKER Gender Identity Male 03/05/2024 8:04 AM COFFEE MAKER Sexual Orientation Straight 03/05/2024 8: 04 AM COFFEE MAKER Last Filed Vital Signs Vital Sign Reading Time Taken Comments Blood Pressure 126/81 04/22/2024 9:47 AM COFFEE MAKER Pulse 61 04/22/2024 9:47 AM COFFEE MAKER Temperature 36.2 ??C (97.2 ??F) 04/22/2024 9:47 AM CS T Respiratory Rate 20 04/19/2024 10:07 AM COFFEE MAKER Oxygen Saturation 100% 04/22/2024 9:47 AM COFFEE MAKER Inhaled Oxygen Concentration - - Weight 99 kg (218 lb 3.2 oz) 04/22/2024 9:47 AM COFFEE MAKER Height 182.9 cm (6') 04/22/2024 9:47 AM COFFEE MAKER Body Mass Index 29.59 04/22/2024 9:47 AM COFFEE MAKER Medical Devices Implanted Type Area Dev Ops Engineer Device Identifier Shelf Expiration Date Model / Serial / Lot Port Implinfn Powerport Clrvu Argd Kandy Implanted:Qty : 1 on 04/11/2024 by Davian Marshall MD at [facility] Catheters Right: Chest Wall [employer] [id number] 02/07/2025 [id number] / / [id number] Procedures * EKG 12-LEAD(Performed 04/22/2024) 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) * DIFFERENTIAL MANUAL(Performed 04/22/2024) 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, 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) * COMPREHENSIVE METABOLIC PANEL(Performed 04/22/2024) 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, 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) * CBC W AUTO DIFFERENTIAL(Performed 04/22/2024) 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, 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) * COMPREHENSIVE METABOLIC PANEL(Performed 04/18/2024) 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, 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) * CBC W AUTO DIFFERENTIAL(Performed 04/18/2024) 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, 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) * QUANTIFERON-TB GOLD PLUS 4-TUBE(Performed 04/16/2024) * LDH BLOOD(Performed 04/16/2024) Performed for Tumor lysis syndrome (HCC) * COMPREHENSIVE METABOLIC PANEL(Performed 04/16/2024) 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, 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) * CBC W AUTO DIFFERENTIAL(Performed 04/16/2024) 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, 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) * COMPREHENSIVE METABOLIC PANEL(Performed 04/11/2024) 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, 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) * CBC W AUTO DIFFERENTIAL(Performed 04/11/2024) 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, 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) * IR TIM CATH INSERT(Performed 04/11/2024) 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) * PT-INR [facility](Performed 04/11/2024) Performed for [...] CONTRAST(Performed 03/15/2024) Performed for MDS (myelodysplastic syndrome) ([facility]) * MYELOID MALIGNANCIES MUTATION PNL(Performed 03/15/2024) Performed for MDS (myelodysplastic syndrome) ([facility]) * FISH MDS PANEL BLOOD OR BONE MARROW(Performed 03/15/2024) Performed for MDS (myelodysplastic syndrome) ([facility]) * FISH AML PANEL BLOOD OR BM RFLX PML/DANTE(Performed 03/15/2024) Performed for MDS (myelodysplastic syndrome) ([facility]) * FLOW CYTOMETRY BONE MARROW(Performed 03/15/2024) Performed for MDS (myelodysplastic syndrome) ([facility]) * BONE MARROW BIOPSY (STL)(Performed 03/15/2024) Performed for MDS (myelodysplastic syndrome) ([facility]) * FISH PML/DANTE PANEL(Performed 03/15/2024) Performed for MDS (myelodysplastic syndrome) ([facility]) * CHROMOSOME ANALYSIS BONE MARROW PANEL(Performed 03/15/2024) Performed for MDS (myelodysplastic syndrome) ([facility]) * LAB MISC TEST (NOT [...] 12-LEAD(Performed 03/14/2024) Performed for MDS (myelodysplastic syndrome) ([facility]) * FLOW CYTOMETRY BLOOD PROFILE(Performed 03/14/2024) Performed for MDS (myelodysplastic syndrome) ([facility]) * DIFFERENTIAL MANUAL(Performed 03/13/2024) * [...] BLD(Performed 03/04/2024) Performed for MDS (myelodysplastic syndrome) ([facility]) * FISH PML/DANTE PANEL(Performed 03/04/2024) Performed for MDS (myelodysplastic syndrome) ([facility]) * FISH AML PANEL BLOOD OR BM RFLX PML/DANTE(Performed 03/04/2024) Performed for MDS (myelodysplastic syndrome) ([facility]) * FISH AML+MDS PANEL BLOOD OR BONE MARROW(Performed 03/04/2024) Performed for MDS (myelodysplastic syndrome) ([facility]) * MYELOID MALIGNANCIES MUTATION PNL(Performed 03/04/2024) Performed for MDS (myelodysplastic syndrome) ([facility]) * HLA TYPING LOW/HIGH RESOLUTION DPB1(Performed 03/04/2024) Performed for MDS (myelodysplastic syndrome) ([facility]) * HLA TYPING DNA HIGH RESOLUTION DR(Performed 03/04/2024) Performed for MDS (myelodysplastic syndrome) ([facility]) * HLA TYPING DNA HIGH RESOLUTION B(Performed 03/04/2024) Performed for MDS (myelodysplastic syndrome) ([facility]) * HLA TYPING DNA HIGH RESOLUTION C(Performed 03/04/2024) Performed for MDS (myelodysplastic syndrome) ([facility]) * HLA TYPING DNA HIGH RESOLUTION DQ(Performed 03/04/2024) Performed for MDS (myelodysplastic syndrome) ([facility]) * HLA TYPING DNA HIGH RESOLUTION A(Performed 03/04/2024) Performed for MDS (myelodysplastic syndrome) ([facility]) * HLA TYPING DNA LOW RESOLUTION DR,DQ(Performed 03/04/2024) Performed for MDS (myelodysplastic syndrome) ([facility]) * HLA TYPING DNA LOW RESOLUTION A,B,C(Performed 03/04/2024) Performed for MDS (myelodysplastic syndrome) ([facility]) * HLA TYPING DNA HIGH RES(Performed 03/04/2024) Performed for MDS (myelodysplastic syndrome) ([facility]) * DIFFERENTIAL MANUAL(Performed 03/04/2024) Performed for Neutropenia, unspecified type ([facility]) * BCR-ABL1 CML+AML PCR QUANT PNL(Performed 03/04/2024) Performed for MDS (myelodysplastic syndrome) ([facility]) * CYTOMEGALOVIRUS ANTIBODY IGG BLOOD(Performed 03/04/2024) Performed for MDS (myelodysplastic syndrome) ([facility]) * HEPATITIS C ANTIBODY(Performed 03/04/2024) Performed for Neutropenia, unspecified type ([facility]) * HEPATITIS B SURFACE ANTIBODY(Performed 03/04/2024) Performed [...] DERMATOPATHOLOGY(Performed 09/27/2023) * DERMATOPATHOLOGY(Performed 09/24/2013) Results * EKG 12-LEAD - HOSPITAL PERFORMED (04/22/2024 1:27 PM COFFEE MAKER) Only the most recent of3 resultswithin the time period is included. Ventricular Rate 61 BPM [facility] MUSE Atrial Rate 61 BPM [facility] P-R Interval 112 ms [facility] QRS Duration ms 126 ms [facility] Q-T Interval ms [address] [facility] MUSE QTC Calculation (Bezet) [address] [facility] MUSE Calculated P [place] [address] [facility] MUSE [facility]culated R [place] [address] [facility] MUSE Calculated T [place] -[address] [facility] MUSE Interpretation EKG NORMAL SINUS RHYTHM NON-SPECIFIC INTRA-VENTRICULA R CONDUCTION BLOCK T WAVE ABNORMALITY, CONSIDER INFERIOR ISCHEMIA T WAVE ABNORMALITY, CONSIDER ANTEROLATERAL ISCHEMIA ABNORMAL ECG WHEN COMPARED WITH ECG OF 18-MAR-2024 13:48, NO SIGNIFICANT CHANGE WAS FOUND Confirmed by MAR ??HANSEL MARTINEZ ([id number]) on 04/23/2024 8:31:[address] [facility] MUSE 04/22/2024 1:27 PM COFFEE MAKER 04/23/2024 8:31 AM [facility] Cindy Garcia MD ECG ORDERABLES [facility] MUSE * (ABNORMAL) DIFFERENTIAL MANUAL (04/22/2024 10:11 AM [facility]) Only the most recent of12 resultswithin the time period is included. Neutrophil % 37(L) 41 - 74 % 04/22/2024 11:21 AM [facility] Lymphocyte % 39 17 - 47 % 04/22/2024 11:21 AM [facility] Monocyte % 22(H) 3 - 11 % 04/22/2024 11:21 AM [facility] Eosinophil % 1 0 - 7 % 04/22/2024 11:21 AM [facility] Metamyelocyte % 1(H) 0% % 11:21 AM [facility] Neutrophil Absolute 0.22(L) 1.60 - 7.50 x10E9/L 04/22/2024 11:21 AM [facility] Lymphocyte Absolute 0.23(L) 1.00 - 4.40 x10E9/L 04/22/2024 11:21 AM [facility] Monocyte Absolute 0.13(L) 0.15 - 1.00 x10E9/L 04/22/2024 11:21 AM [facility] Eosinophil Absolute 0.01 0.00 - 0.60 x10E9/L 04/22/2024 11:21 AM [facility] RBC Morphology REVIEWED 04/22/2024 11:21 AM [facility] Schistocytes MODERATE(A) (none) 04/22/2024 11:21 AM [facility] Large Platelets PRESENT(A) (none) 11:21 AM [facility] Blood BLOOD SPECIMEN / Unknown Venipuncture / Unknown 04/22/2024 10:11 AM COFFEE MAKER 04/22/2024 10:33 AM COFFEE MAKER Cindy Garcia MD LAB - HEMATOLOGY ORD ERABLES [facility] [address] [place] [address], [place] [phone] * (ABNORMAL) CBC WITH DIFFERENTIAL (04/22/2024 10:11 AM [facility]) Only the most recent of16 resultswithin the time period is included. WBC 0.6(LL) 4.0 - 10.7 x10E9/L 04/22/2024 11:21 AM [facility] RBC Count 3.69(L) 4.30 - 5.80 x10E12/L 04/22/2024 11:21 AM [facility] Hemoglobin 10.3(L) 13.3 - 17.5 g/dL 04/22/2024 11:21 AM [facility] Hematocrit 31.8(L) 38.7 - 51.1 % 04/22/2024 11:21 AM [facility] MCV 86.2 80.0 - 98.0 fL 04/22/2024 11:21 AM [facility] MCH 27.9 26.7 - 33.6 pg 04/22/2024 11:21 AM [facility] MCHC 32.4 31.7 - 36.3 g/dL 04/22/2024 11:21 AM [facility] RDW-CV 17.9(H) 11.3 - 14.8 % 04/22/2024 11:21 AM [facility] Platelet Count 212 150 - 420 x10E9/L 04/22/2024 11:21 AM [facility] MPV 12.4(H) 7.8 - 11.4 fL 04/22/2024 11:21 AM [facility] Preliminary Absolute Neutrophil 0.17(L) 1.60 - 7.50 x10E9/L 04/22/2024 11:21 AM [facility] Blood BLOOD SPECIMEN / Unknown Venipuncture / Unknown 04/22/2024 10:11 AM COFFEE MAKER 04/22/2024 10:33 AM [facility] Cindy Garcia MD LAB - HEMATOLOGY ORD ERABLES [facility] [address] [place] [address], [place] [phone] * (ABNORMAL) COMPREHENSIVE METABOLIC PANEL (04/22/2024 10:11 AM [facility]) Only the most recent of18 resultswithin the time period is included. BUN 11 7 - 26 mg/dL 04/22/2024 10:58 AM [facility] Creatinine 1.08 0.71 - 1.16 mg/dL 04/22/2024 10:58 AM [facility] Sodium 140 136 - 145 mmol/L 04/22/2024 10:58 AM [facility] Potassium 3.5 3.5 - 4.5 mmol/L 04/22/2024 10:58 AM [facility] Chloride 109(H) 98 - 107 mmol/L 04/22/2024 10:58 AM [facility] CO2 23 22 - 29 mmol/L 04/22/2024 10:58 AM [facility] Glucose 90 70 - 99 mg/dL 04/22/2024 10:58 AM [facility] Calcium 8.7 8.4 - 10.2 mg/dL 04/22/2024 10:58 AM [facility] Protein Total 6.1 6.0 - 8.3 g/dL 04/22/2024 10:58 AM [facility] Albumin 3.4 3.4 - 5.0 g/dL 04/22/2024 10:58 AM [facility] Bilirubin Total 1.1 0.2 - 1.2 mg/dL 04/22/2024 10:58 AM [facility] Alkaline Phosphatase 136 40 - 150 U/L 04/22/2024 10:58 AM [facility] ALT 21 5 - 55 U/L 04/22/2024 10:58 AM [facility] AST 17 5 - 34 U/L 04/22/2024 10:58 AM [facility] Anion Gap 8 6 - 16 04/22/2024 10:58 AM [facility] BUN/Creatinine Ratio 10 7 - 23 04/22/2024 10:58 AM [facility] Osmolality Calculated 289 275 - 295 mOsm/kg 04/22/2024 10:58 AM [facility] Albumin/Globulin Ratio 1.3 1.1 - 2.3 04/22/2024 10:58 AM [facility] eGFR by CKD-EPI 70(L) >=90 mL/min/1.7 3 m2 04/22/2024 10:58 AM [facility] Blood BLOOD SPECIMEN / Unknown Venipuncture / Unknown 04/22/2024 10:11 AM COFFEE MAKER 04/22/2024 10:31 AM [facility] Cindy Garcia MD LAB - CHEMISTRY CHELI MONREAL [facility] Organization Address City/State/ZIP Co de Phone Number [facility] [address] [place] [address], [place] [phone] * QUANTIFERON-TB GOLD PLUS 4-TUBE (04/16/2024 1:43 PM [facility]) QuantiFERON Mitogen Minus NIL 9.09 IU/mL 04/18/2024 11:11 PM COFFEE MAKER [facility] ([facility]) QuantiFERON Nil Value 0.04 IU/mL 04/18/2024 11:11 PM COFFEE MAKER [facility]) QuantiFERON Plus TB1 Minus NIL 0.00 <=0.34 IU/mL 04/18/2024 11:11 PM COFFEE MAKER [facility]) QuantiFERON Plus TB2 Minus NIL 0.00 <=0.34 IU/mL 04/18/2024 11:11 PM COFFEE MAKER [facility] ([facility]) QuantiFERON-TB Gold Plus Negative Negative 04/18/2024 11:11 PM COFFEE MAKER [facility]) Comment: INTERPRETIVE INFORMATION:Quantiferon TB Gold Plus [...] Mycobacterium tuberculosis Infection -- [place], 2010 (http://www.cdc.gov/mmwr/preview/mmwrhtml/bo3118x6.htm), for more information concerning test performance in low-prevalence populations and use in occupational screening. Performed By: [employer] [address] [place] [address] Hop Trainer: Uche Morley MD, PhD CLIA Number: [id number] Blood BLOOD SPECIMEN / Unknown Venipuncture / Unknown 04/16/2024 1:43 PM COFFEE MAKER 04/16/2024 2:03 PM COFFEE MAKER Cindy Garcia MD LAB - CHEMISTRY CHELI MONREAL [facility]) [address] [place] [address] * LDH BLOOD (04/16/2024 10:26 AM COFFEE MAKER) Only the most recent of13 resultswithin the time period is included. LDH Total 197 125 - 243 Units/L 04/16/2024 11:[address] [facility] Blood BLOOD SPECIMEN / Unknown Venipuncture / Unknown 04/16/2024 10:26 AM COFFEE MAKER 04/16/2024 10:48 AM COFFEE MAKER Cindy Garcia MD LAB - CHEMISTRY CHELI [place]REAL [place] [address] [place] [address], [place] [phone] * IR Tim Cath Insert (04/11/2024 9:45 AM COFFEE MAKER) Anatomical Region Laterality Modality Chest X-Ray Angiograph y 04/11/2024 9:19 AM COFFEE MAKER Impressions 04/11/2024 3:43 PM COFFEE MAKER Impression: Successful placement of a single lumen 8 Thai x 23 cm chest power port via [...] evaluation, please review the evaluation forms in [facility]. For details on monitored clinical parameters during the intra-service sedation time, please review the procedure nurse documentation in [facility]. Report dictated by Eduardo Coleman MD, PhD (vice president marketing & development). > Dictated by Eduardo Coleman MD (Temperer) 04/11/2024 9:19 AM Davian Post DO have personally reviewed and interpreted this examination/study. > Interpreting Provider: Davian Marshall DO on 04/11/2024 3:43 PM Narrative 04/11/2024 3:43 PM COFFEE MAKER PROCEDURE: ??IR TIM CATH INSERT, DATE/TIME OF EXAM: ??04/11/2024 5:49 AM, LOCATION ??[facility] INDICATION: C92.00: Acute myeloid leukemia [...] chest. 3.Fluoroscopy-guided placement of single lumen 8 Thai x 23 cm chest power port via [...] draped in the usual sterile manner. A finish patcher film of chest was obtained, which was [...] DATE/TIME OF EXAM: 04/11/2024 5:49 AM, LOCATION [facility] INDICATION: C92.00: Acute myeloid leukemia [...] chest. 3.Fluoroscopy-guided placement of single lumen 8 Thai x 23 cm chestpower port via the [...] and draped inthe usual sterile manner. A finish patcher film of chest was obtained, which was [...] the procedure well [facility]. There were no immediate complicationsassociated with the procedure. Impression: Successful placement of a single lumen 8 Thai x 23 cmchest power port via the [...] evaluation, please review the evaluation forms in [facility]. For details on monitored clinical parameters during the intra-service sedation time, please review the procedure nurse documentation in [facility]. Report dictated by Eduardo Coleman MD, PhD (vice president marketing & development). > Dictated by Eduardo Coleman MD (Temperer) 04/11/2024 9:19AM IDavian DO have personally reviewed and interpreted this examination/study. > Interpreting Provider: Davian Marshall DO on 04/11/2024 3:43 PM Cindy Garcia MD IR ORDERABLES * PT-INR [facility] (04/11/2024 7:20 AM COFFEE MAKER) Only the most recent of11 resultswithin the time period is included. PT 14.6 12.1 - 14.8 Seconds 04/11/2024 7:[address] [facility] INR 1.2 See Comment 04/11/2024 7:[address] [facility] Comment:The suggested therap eutic range for standard coumadin (warfarin) therapy is an INR of 2.0-3.0. For high-risk patients (Mechanical Mitral Valve Prosthesis, etc.), the suggested prophylactic therapeutic range is an INR of 2.5-3.5. Blood BLOOD SPECIMEN / Unknown Venipuncture / Unknown 04/11/2024 7:20 AM COFFEE MAKER 04/11/2024 7:23 AM COFFEE MAKER Cindy Garcia MD LAB - COAGULATION OR DERABLES [facility] [address] [address], [place] [phone] * URIC ACID BLOOD (04/01/2024 3:12 PM COFFEE MAKER) Only the most recent of13 resultswithin the time period is included. Uric Acid 4.0 3.5 - 7.2 mg/dL 04/01/2024 5:[address] [facility] Blood BLOOD SPECIMEN / Unknown Lab Venipuncture / Unknown 04/01/2024 3:12 PM COFFEE MAKER 04/01/2024 5:30 PM COFFEE MAKER Cindy Garcia MD LAB - CHEMISTRY ORDNatalie MONREAL [facility] [address] [place] [address], [place] [phone] * ERYTHROPOIETIN (04/01/2024 3:12 PM COFFEE MAKER) [facility] Signature Erythropoietin 22 4 - 27 mU/mL 04/02/2024 11:36 AM COFFEE MAKER [facility] ([facility]) Comment: INTERPRETIVE INFORMATION: Erythropoietin Normal serum concentrations [...] may benefit from therapy with recombinant EPO ([facility] [id number],1989). Performed By: [facility] [employer] [address] [place] [address] Hop Trainer: Uche Morley MD, PhD CLIA Number: [id number] Blood BLOOD SPECIMEN / Unknown Lab Venipuncture / Unknown 04/01/2024 3:12 PM COFFEE MAKER 04/01/2024 3:22 PM COFFEE MAKER Cindy Garcia MD LAB - CHEMISTRY CHELI MONREAL [email or web address] [facility]) [address] * SOLUBLE TRANSFERRIN RECEPTOR (04/01/2024 3:12 PM COFFEE MAKER) [facility] Soluble Transferrin Receptor 3.3 2.2 - 5.0 mg/L 04/02/2024 9:13 PM COFFEE MAKER [email or web address] ([facility]) Comment: INTERPRETIVE INFORMATION: Soluble Transferrin Receptor People [...] ??High ? Normal ? High Performed By: [facility] [address] [place] [address] Hop Trainer: Uche Morley MD, PhD CLIA Number: [id number] Blood BLOOD SPECIMEN / Unknown Lab Venipuncture / Unknown 04/01/2024 3:12 PM COFFEE MAKER 04/01/2024 3:22 PM COFFEE MAKER Cindy Garcia MD LAB - CHEMISTRY CHELI MONREAL [email or web address] ([facility]) [address] [place] [address], [place] * PHOSPHORUS BLOOD (04/01/2024 3:12 PM COFFEE MAKER) Only the most recent of13 resultswithin the time period is included. [facility] Phosphorus 2.9 2.8 - 5.1 mg/dL 04/01/2024 5:52 PM COFFEE MAKER [facility] Blood BLOOD SPECIMEN / Unknown Lab Venipuncture / Unknown 04/01/2024 3:12 PM COFFEE MAKER 04/01/2024 5:30 PM COFFEE MAKER Cindy Garcia MD LAB - CHEMISTRY CHELI MONREAL Performing Organization Address [facility] Co de Phone Number [address] [address], [place] [phone] * MAGNESIUM BLOOD (04/01/2024 3:12 PM COFFEE MAKER) Only the most recent of13 resultswithin the time period is included. Magnesium 2.1 1.6 - 2.6 mg/dL 04/01/2024 4:25 PM COFFEE MAKER [facility] Comment:Hemolysis detected i n this specimen. Hemolysis is known to cause elevations in this analyte. Caution should be exercised in the interpretation of this result. Recommend repeat testing if clinically indicated. Blood BLOOD SPECIMEN / Unknown Lab Venipuncture / Unknown 04/01/2024 3:12 PM COFFEE MAKER 04/01/2024 3:36 PM COFFEE MAKER Cindy Garcia MD LAB - CHEMISTRY CHELI MONREAL Performing Organization Address [facility] Co de Phone Number [address] [address], [place] [phone] * LAB RESULTS ORDER (03/25/2024) 03/25/2024 Narrative 03/25/2024 Ordered by an unspecified provider. Scanned Document LAB - THERAPEUTIC DR VANCE MONITORING ORDERABLES * PTT [facility] (03/23/2024 12:25 AM COFFEE MAKER) Only the most recent of10 resultswithin the time period is included. APTT 35.4 23.0 - 38.4 Seconds 03/23/2024 1:31 AM COFFEE MAKER [facility] Comment:Suggested therapeuti c range for full dose I.V. unfractionated heparin therapy for venous thromboembolism is 71 to 109 seconds. Blood BLOOD SPECIMEN / Unknown Venipuncture / Unknown 03/23/2024 12:25 AM COFFEE MAKER 03/23/2024 1:05 AM COFFEE MAKER Ghanshyam Dewey PA-C LAB - COAGULATION OR DERABLES [facility] [address] [place] [id number], [place] [phone] * PATHOLOGY PERIPHERAL SMEAR REVIEW (03/18/2024 8:33 AM COFFEE MAKER) Path Review Confirmed 03/18/2024 2:44 PM COFFEE MAKER [facility] Blood BLOOD SPECIMEN / Unknown Lab Venipuncture / Unknown 03/18/2024 8:33 AM COFFEE MAKER 03/18/2024 8:46 AM COFFEE MAKER Narrative [facility] - 03/18/2024 2:44 PM COFFEE MAKER A rare blast seen. Ghanshyam Dewey PA-C LAB - PATHOLOGY/CYTO LOGY ORDERABLES [address] [address], [place] [phone] * ECHO COMPLETE W CONTRAST (03/15/2024 1:47 PM COFFEE MAKER) IVSd 2D 1.314 cm SSM CV FUJ [...] PACS LVOT VTI 32.536 cm [facility] [address] [facility] I PACS RVIDd 3.985 cm [facility] [address] [facility] I PACS RVOT pk lawanda 69.928 cm/s SSM CV F UJI PACS RVOT VTI 14.149 cm [facility] [address] [facility] I PACS LA size 3.887 cm [facility] [address] [facility] I PACS LA vol BP 103.263 ml [facility] I PACS RA area 17.733 cm? ? ? [facility] AV pk lawanda regurg 205.453 cm/s [facility] AR VTI 104.216 cm [facility] [address] [facility] I PACS AV mn grad 5.22 mmHg SSM CV FU PACS AV pk lawanda 141.499 cm/s SSM CV [facility] I PACS AV VTI 30.145 cm [facility] [address] [facility] I PACS MV A pk lawanda 84.582 cm/s SSM CV F U PACS MV E pk lawanda 99.639 cm/s SSM CV F U PACS MV E' lateral lawanda 5.461 cm/s [facility] MV mn grad 1.183 mmHg SSM CV FU PACS MV VTI 30.572 cm [facility] [address] [facility] I PACS PV pk lawanda 84.446 cm/s SSM CV [facility] I PACS PV VTI 18.271 cm [facility] [address] [facility] I PACS TAPSE 1.78 cm [facility] I PACS TR pk lawanda 276.773 cm/s [facility] CV [facility] I PACS Ascending aorta 3.799 cm [facility] [address] [facility] P[facility] LA vol index 0.046 l/m? ? ? [facility] PACS Myocardial strain charge 2 unitless SSM CV [facility] PACS Sinus of Valsalva 3.[address] [facility] [address] [facility] ST junction 3.4 cm SSM CV F U PACS Anatomical Region Laterality Modality Ultrasound 03/15/2024 2:04 PM COFFEE MAKER Narrative 03/15/2024 5:17 PM COFFEE MAKER Summary ??* The left ventricle is normal [...] 1945 Gender: ? Male Accession #: ? [id number] Ht: ? 72 in Wt: ? 218 lb BSA: ? 2.26 m2 HR: ? 65 bpm BP: ? 103 / ? 55 mmHg Exam Date: ? 03/15/2024 2:04 PM Patient Status: ? I/P Study Site: ? [facility] Primary Location: ? [facility] Info Technical Quality: ? Adequate Exam Type: [...] ? Ted Soler Fellow: ? Josh Knight Loss Prevention/Safety District Manager: ? Dhruv Sorto Left Ventricle ??Left ventricular [...] 2:04 PM Patient Status: I/P Study Site: [facility] Primary Location: [facility] EStudy Info Technical Quality: Adequate Exam Type: [...] Attending Physician: Ted Soler Fellow: Josh Knight Loss Prevention/Safety District Manager: Dhruv Sorto Left Ventricle Left ventricular systolic [...] BLOOD OR BONE MARROW (03/15/2024 9:05 AM COFFEE MAKER) MDS Panel by Fish See Note Normal 024 11:26 AM COFFEE MAKER [email or web address] ([facility]) Comment: Test Performed: Myelodysplastic Syndrome (MDS) Panel by FISH (FISH MDS P) Specimen Type: Bone Marrow Indication for Testing: Myelodysplastic syndrome, unspecified RESULT Normal FISH Result Deletion 5q: ??not detected Monosomy 7: ??not detected Deletion 7q: ??not detected Trisomy 8: ??not detected Deletion 20q: ??not detected INTERPRETATION There was no evidence of deletion 5q31, monosomy 7, deletion 7q31, trisomy 8, or deletion 11q49-y10.1. This analysis was performed with the MDS panel probes D5S23/EGR1, D7Z1/E0O967, CEP8 ([employer]), and Del(20q) (SIGKAT). A total of 200 cells were scored for each probe. Cytogenomic Nomenclature (ISCN): nuc nereyda(D5S23,EGR1,D7Z1,F6P191,D8Z2,L51H208,MYBL2)x2[200' This result has been reviewed and approved by Nabila Gonzalez, PhD, [facility] A portion of this analysis was performed at the following location(s): [employer] Site -[place]#2 INTERPRETIVE INFORMATION: MDS Panel by FISH This test was developed and its performance characteristics determined by [employer]. It has not been cleared or approved by the US Food and Drug Administration. This test was performed in a CLIA certified laboratory and is intended for clinical purposes. EER MDS Fish Panel See Note 2023 11:26 AM [facility] [email or web address] ([facility]) Comment: Authorized individuals can access the Scan Enhanced Report using the following link: [email or web address] Performed By: [facility] [address] [place] [address] Hop Trainer: Uche Morley MD, PhD CLIA Number: [id number] Other BONE MARROW SPECIMEN / Unknown Collection / Unknown 03/15/2024 9:05 AM COFFEE MAKER 03/15/2024 9:30 AM COFFEE MAKER Rodo Perez MD LAB - PATHOLOG Y/CYTOLOGY ORDERABLES [employer] ([facility]) [address] [place], [place] [address] * FISH AML PANEL BLOOD OR BM RFLX PML/DANTE (03/15/2024 9:05 AM COFFEE MAKER) Only the most recent of2 resultswithin the time period is included. FISH AML Panel See Note Normal 03/25/2024 10:34 AM COFFEE MAKER [employer] ([facility]) Comment: Test Performed: Acute Myeloid Leukemia Panel by FISH (FISHAML) Specimen Type: Bone Marrow Indication for Testing: Myelodysplastic syndrome, unspecified RESULT Normal FISH Result inv(3) or t(3;3) GATA2::MECOM Fusion: ??not detected Deletion 5q: ??not detected Monosomy 7: ??not detected Deletion 7q: ??not detected t(8;21) RUNX1::HZPU0L2 Fusion: ??not detected 11p15 (NUP98) Rearrangement: ??not detected 11q23 (KMT2A) Rearrangement: ??not detected inv(16) or t(16;16) CBFB::MYH11 Fusion: ??not detected INTERPRETATION There was no evidence of GATA2::MECOM (also known as RPN1-EVI1) fusion due to 3q21/3q26.2 inversion or translocation, deletion 5q31, monosomy 7, deletion 7q31, RUNX1::LBNU6U9 fusion due to translocation (8;21)(q21.3;q22), 11p15 (NUP98) rearrangement, 11q23 KMT2A (MLL) rearrangement, or CBFB::MYH11 fusion due to either 16p13.1/16q22 inversion or translocation. This analysis was performed with the AML panel probes RPN1/MECOM, D5S23/EGR1, D7Z1/U7O131, RUNX1/GDKZ6I3 ([employer]), NUP98 and CBFB-MYH11 ([employer]), and MLL (KMT2A) ([employer]). A total of 200 cells were scored for each probe. Cytogenomic Nomenclature (ISCN): nuc nereyda(RPN1,MECOM,D5S23,EGR1,D7Z1,K9B264,NAKW7R4,NUP98,KMT2A,MYH11,CBF B,RUNX1)x2[200' This result has been reviewed and approved by Mundo Mejia, PhD, [facility] A portion of this analysis was performed at the following location(s): [facility] Site -[place]#1 INTERPRETIVE INFORMATION: AML Panel by FISH This test was developed and its performance characteristics determined by [employer]. It has not been cleared or approved by the US Food and Drug Administration. This test was performed in a CLIA certified laboratory and is intended for clinical purposes. EER AML Panel by FISH See Note 03/25/2024 10:34 AM COFFEE MAKER [employer] ([facility]) Comment: Authorized individuals can access the Scan Enhanced Report using the following link: [email or web address] Performed By: [facility] [address] [place] [address] Hop Trainer: Uche Morley MD, PhD CLIA Number: [id number] Other BONE MARROW SPECIMEN / Unknown Collection / Unknown 03/15/2024 9:05 AM COFFEE MAKER 03/15/2024 9:30 AM COFFEE MAKER Rodo Perez MD LAB - PATHOLOG Y/CYTOLOGY ORDERABLES [email or web address] [facility]) [address] [place] [address], [place] * FLOW CYTOMETRY BONE MARROW (03/15/2024 9:05 AM COFFEE MAKER) Only the most recent of2 resultswithin the time period is included. Case Report Flow Cytometry ?Case: [id number] ? Authorizing Provider: ??Rodo Perez, ?? Collected: ? 03/15/2024 09:05 AM ? MD ? Ordering Location: ? [facility] AC[facility] ? Received: ?03/15/2024 09:30 AM ? Pathologist: ? Angeles Rosado MD ? Specimen: ?Bone Marrow ? 03/15/2024 2:40 PM COFFEE MAKER [facility] Final Diagnosis Bone marrow, flow cytometric immunophenotypic analysis: - Paucicellular specimen with increased myeloblasts detected (42.4% of events) - See interpretation 03/15/2024 2:40 PM COFFEE MAKER [facility] Flow Cytometry Interpretation Viability: 92%, [...] flow cytometry specimen has been reviewed for vice president quality assurance purposes. Correlation with the concurrent bone marrow biopsy ([id number]) is required. 03/15/2024 2:40 PM [facility] Flow Cytometry Results Differential Result Comment Flow Cell Count /uL 980 Total Viability % 92.0 Lymphocytes % 13 Dim CD45 Region % 55 Monocytes % 2 Granulocytes % 28 03/15/2024 2:40 PM [facility] Reason for test MDS (myelodysplastic syndrome) (HCC) 238.75 03/15/2024 2:40 PM [facility] Client Specimen ID # [id number] 03/15/2024 2:40 PM [facility] Number of markers 24 were performed. A-2 Flow CD10 A-3 Flow CD13 A-5 Flow CD20 A-11 Flow CD2 A-13 Flow CD14 A-16 Flow CD117 A-17 Flow CD11b A-18 Flow CD11c A-1 Flow CD5 A-4 Flow CD19 A-6 Flow CD33 A-7 Flow CD34 A-8 Flow CD45 A-12 Flow CD7 A-14 Flow CD56 A-15 Flow CD64 A-23 cyCD22 A-24 zlTC51z A-9 [place]+CD19+ A-10 Lambda+CD19+ A-19 Flow HLA-DR A-20 Flow MPO A-21 Flow TdT A-22 cyCD3 03/15/2024 2:40 PM [facility] Pathologist Location at [facility] 03/15/2024 2:40 PM [facility] Disclaimer Test performed at [facility], [address] [place], [place], [address]. *The established laboratory minimum viability is 70%. [...] high complexity clinical testing. 03/15/2024 2:40 PM COFFEE MAKER [facility] Embedded Images 2:40 PM COFFEE MAKER [facility] Pathology/Cytolo gy BONE MARROW SPECIMEN / Unknown Collection / Unknown 03/15/2024 9:05 AM COFFEE MAKER 03/15/2024 9:30 AM COFFEE MAKER Rodo Perez MD LAB - PATHOLOG Y/CYTOLOGY ORDERABLES Performing Organization Address [facility] Co de Phone Number [facility]. [address] [phone] * BONE MARROW BIOPSY (STL) (03/15/2024 9:05 AM COFFEE MAKER) Only the most recent of2 resultswithin the time period is included. Case Report Bone Marrow Patholog y Report ?Case: [id number] ? Authorizing Provider: ??Rodo Perez, ?? Collected: ? 03/15/2024 09:05 AM ? MD ? Ordering Location: ? [facility] ? Received: ?03/15/2024 09:30 AM ? Pathologist: ? Guillermo Brown, MD ? Specimens: ?? A) - Bone Marrow Clot ? B) - Bone Marrow Core ? C) - Bone Marrow Aspirate ? D) - Blood Peripheral ? 03/18/2024 4:01 PM COFFEE MAKER [facility] Final Diagnosis Bone marrow, aspirate, clot section, and core biopsy: - Acute myeloid leukemia. - See description. Peripheral blood smear: - Pancytopenia. - See description. 03/18/2024 4:01 PM [facility] Comment Immunohistochemistry performed [...] for a definitive subclassification. 03/18/2024 4:01 PM [facility] Peripheral Smear Description RBC: normocytic anemia. WBC: leukopenia with absolute neutropenia and lymphopenia. No circulating blasts seen. Platelets: decreased in number. 03/18/2024 4:01 PM [facility] Bone Marrow Aspirate [...] stain): no ring sideroblasts. 03/18/2024 4:01 PM [facility] Bone Marrow Core [...] morphology: peripheral blood only. 03/18/2024 4:01 PM [facility] Flow Cytometry Summary Bone marrow, flow cytometric immunophenotypic analysis ([id number]): - Paucicellular specimen with increased myeloblasts detected (42.4% of events) 03/18/2024 4:01 PM [facility] Clinical History New AML. 03/18/2024 4:01 PM [facility] Gross Description The [...] in cassette B1. DF 03/18/2024 4:01 PM [facility] Pathologist Location at [facility] 03/18/2024 4:01 PM [facility] Disclaimer The performance characteristics of all immunohistochemical and indirect immunofluorescence stains (if any) cited in this report were determined by the Histopathology Laboratory of [facility]. Some of these tests were developed [...] the attending (teaching) pathologist. 03/18/2024 4:01 PM [facility] Embedded Images 03/18/2024 4:01 PM [facility] Pathology/Cytology PERIPHERAL BLOOD / Unknown Collection / Unknown 03/15/2024 9:05 AM COFFEE MAKER 03/15/2024 9:30 AM COFFEE MAKER Miscellaneous samples (specimen) BONE MARROW SPECIMEN / Unknown 03/15/2024 9:05 AM COFFEE MAKER 03/15/2024 9:30 AM COFFEE MAKER Miscellaneous samples (specimen) SPECIMEN FROM BONE MARROW OBTAINED BY ASPIRATION / Unknown 03/15/2024 9:05 AM COFFEE MAKER 03/15/2024 9:30 AM COFFEE MAKER Miscellaneous samples (specimen) PERIPHERAL BLOOD / Unknown 03/15/2024 9:05 AM COFFEE MAKER 03/15/2024 11:39 AM COFFEE MAKER Rodo Perez MD LAB - PATHOLOG Y/CYTOLOGY ORDERABLES [facility] [address] [facility] [place] [address], [place] [phone] * MYELOID MALIGNANCIES MUTATION PNL (03/15/2024 9:05 AM COFFEE MAKER) Only the most recent of2 resultswithin the time period is included. Interpretation Myeloid Malignancy PNL See Note 03/28/2024 2:06 PM COFFEE MAKER [employer] ([facility]) Comment: Myeloid Malignancies Mutation Panel NGS Submitted diagnosis or diagnosis under consideration for variant interpretation: Myelodysplastic syndrome, unspecified Note: Prior NGS testing performed on this patient (most recent Scan accession [id number]) was reviewed in conjunction with the current case to compare molecular variants reported. The previously reported molecular variants DNMT3A, IDH1, and CUX1 are again detected in the current study. In addition, new molecular variants in STAG2, BCOR, JAK2, and CEBPA are now detected. TIER 1: Variants of Known Clinical Significance in Hematologic Malignancies 1. IDH1 c.394C>A, p.Cwe616Jbp (NM_[id number]) VAF: 38.4% IDH1 encodes an enzyme that catalyzes the conversion of isocitrate to alpha-ketoglutarate in the citric acid cycle (23). Somatic mutations of IDH1 are found in 4-12% of patients with myelodysplastic syndrome (MDS).This mutation has been reported in hematologic malignancies (4). The prognostic significance of mutated IDH1 in MDS is uncertain (20) (27) (7) (14) (19) (32). 2. DNMT3A c.2206C>T, p.Cvc284Lsr ([id number]) VAF: 42.2% DNMT3A encodes a DNA [...] stem cell transplantation (2). 3. DNMT3A c.2407A>G, p.Ekh532Hdv ([id number]) VAF: 38.8% This mutation has also been reported in hematologic malignancies (4). 4. JAK2 c.1849G>T, p.Tev361Nnz (NM_[id number]) VAF: 14.4% JAK2 encodes a non-receptor protein tyrosine kinase that regulates STAT die engraving supervisor factors in response to cytokine receptor signaling (13). JAK2 mutations have been reported in 3-6% of patients with MDS (6) (15) (31). This JAK2 mutation (p.Cwj335Nka) has also been reported in approximately 10-25% of patients with myelodysplastic/myeloproliferative neoplasms (MDS/MPN) (31) (21). This particular JAK2 mutation occurs in the pseudokinase (JH2) domain and leads to activation of the NOLAN-STAT pathway signaling. The prognostic significance of JAK2 mutations in MDS is unclear (6). 5. STAG2 c.1840C>T, p.Nip910* (NM_[id number]) VAF: 31.7% STAG2 encodes a subunit [...] unmutated cohesin genes (29). 6. BCOR c.3649C>T, p.Oef8351* ([id number]) VAF: 9.6% BCOR encodes a transcriptional corepressor that interacts with BCL-6 and histone deacetylases (HDACs) (5) (12). Mutations in BCOR are seen in 4% of patients with MDS (5) (11). BCOR mutations in MDS are often frameshift and nonsense mutations that result in bijn-zl-sgqlclmr (5) (11). This mutation is predicted to alter the normal function of BCOR. BCOR mutations are associated with a higher incidence of AML transformation in MDS patients and shorter overall survival in MDS patients (5) (11) (16). 7. BCOR c.635_638del, p.Fko347Kwqco*3 (NM_[id number]) VAF: 6.2% This mutation is also predicted to alter the normal function of BCOR. TIER 2: Variants of Unknown Clinical Significance in Hematologic Malignancies 1. CEBPA c.1074_*9del, p.*359Cysext*58 (NM_[id number]) VAF: 4.7% CEBPA encodes a protein that is a member of the basic region leucine zipper family of die engraving supervisor factors (18). Somatic mutations of CEBPA are [...] if any, is uncertain. 2. CUX1 c.3085G>A, p.Lmb1267Qrj (NM_[id number]) VAF: 44.8% This variant has been rarely reported in hematologic malignancies (1) (10), to the best of our knowledge. References 1: Lynnette P, ??Emmanuelle B, ??Zhanna CLARK et al, Assessment of Minimal Residual Disease by Next Generation Sequencing in Peripheral Blood as a Complementary Tool for Personalized Transplant Monitoring in Myeloid Neoplasms. J Clin Med 2020. PMID:15379559 2: Virginie R, ??Juan HERNANDEZ, ??Ulises Kim et al, Somatic mutations predict poor outcome in patients with myelodysplastic syndrome after hematopoietic stem-cell transplantation. J Clin Oncol 2014. PMID:25495439 3: cBioPortal: http://www.cbioportal.org/ 4: COSMIC: https://cancer.vipin.ac.uk/cosmic 5: Braulio F, ??Chesnaiphil V, ??Camilla Y et al, BCOR and BCORL1 mutations in myelodysplastic syndromes and related disorders. Blood 2013. PMID:01693430 6: Bill M, ??Jennifer C, ??Víctor Stroud et al, JAK2 Mutations Are Rare and Diverse in Myelodysplastic Syndromes: Case Series and Review of the Literature. Hematol Rep 2022. PMID:54821838 7: Jahaira GRAY, ??Kamla E, ??Mary Mason et al, IDH1 and IDH2 mutations in myelodysplastic syndromes and role in disease progression. Leukemia 2016. PMID:05695390 8: Fried I, ??Day C, ??Lenin MURPHY et al, Frequency, onset and clinical impact of somatic DNMT3A mutations in therapy-related and secondary acute myeloid leukemia. Haematologica 2012. PMID:61901866 9: Nuha O, ??Idania D, ??Luanne Payne et al, CEBPA polymorphisms and mutations in patients with acute myeloid leukemia, myelodysplastic syndrome, multiple myeloma and non-Hodgkin's lymphoma. Blood Cells Mol Dis 2008. PMID:82421289 10: Cassandra Kim, ??Cornell M, ??Alexis Valdivia et al, DNA methylation epitypes highlight underlying developmental and disease pathways in acute myeloid leukemia. Genome Res 2020. PMID:95044824 11: Ivan V, ??Jenna E, ??Alondra DEMPSEY et al, Whole-exome sequencing identifies somatic mutations of BCOR in acute myeloid leukemia with normal karyotype. Blood 2011. PMID:57197227 12: Lin RUEDA, ??Yashira W, ??Darcie Estrada et al, BCoR, a novel corepressor involved in BCL-6 repression. Genes Dev 2000. PMID:27854399 13: Fabian SS, ??Jen SJ, ??Amandeep MORRISON et al, Nolan/STAT pathways in cytokine signaling and myeloproliferative disorders: approaches for targeted therapies. Genes Cancer 2010. PMID:67042373 14: Jose J O, ??Charity V, ??Grayson Stroud et al, Mutations of IDH1 and IDH2 genes in early and accelerated phases of myelodysplastic syndromes and MDS/myeloproliferative neoplasms. Leukemia 2010. PMID:06094576 15: Meggendorfer M, ??Haferlach C, ??Ahsan W et al, Molecular analysis of myelodysplastic syndrome with isolated deletion of the long arm of chromosome 5 reveals a specific spectrum of molecular mutations with prognostic impact: a study on 123 patients and 27 genes. Haematologica 2017. PMID:46628222 16: Gregoria BAR, ??Meliton T, ??Valerie Payne et al, Spectrum and prognostic relevance of recycler forklift driver truck driver gene mutations in acute myeloid leukemia. Blood 2016. PMID:83051012 17: Nicol T, ??Mel BU, ??Milton P et al, Dominant-negative mutations of CEBPA, encoding CCAAT/enhancer binding protein-alpha (C/EBPalpha), in acute myeloid leukemia. Yusra Emely 2001. PMID:16623884 18: Nicol T, Leal BU, Complexity of CEBPA dysregulation in human acute myeloid leukemia. Clin Cancer Res 2009. PMID:59119391 19: Papaemmaelleuil E, ??Gerstung M, ??Hugh L et al, Clinical and biological implications of recycler forklift driver truck driver mutations in myelodysplastic syndromes. Blood 2013. PMID:31178596 20: Eileen MURPHY, ??Rajinedr CHRISTY, ??Juju OTERO et al, Differential prognostic effect of IDH1 versus IDH2 mutations in myelodysplastic syndromes: a [facility] study of 277 patients. Leukemia 2012. PMID:55591365 21: Eileen MURPHY, George TL, Genomics of myelodysplastic syndrome/myeloproliferative neoplasm overlap syndromes. Hematology Am Soc Hematol Educ Program 2020. PMID:89542188 22: Preudhomme C, ??Sagot C, ??Heather N et al, Favorable prognostic significance of CEBPA mutations in patients with de elinor acute myeloid leukemia: a study from the Acute Leukemia [place] [employer] (JOSE). Blood 2002. PMID:[id number] 23: Bulmaro BENTON, Josse H, Isocitrate dehydrogenase 1 and 2 mutations in cancer: alterations at a crossroads of cellular metabolism. J [facility]l Cancer Inst 2010. PMID:[id number] 24: Jose A, ??Ivan V, ??Yudi U et al, [place] analysis of DNMT3A mutations in hematological malignancies. Leukemia 2013. PMID:[id number] 25: [facility], ??Lisa-Hussein O, ??Arnulfo ARLETH et al, The role of mutations in epigenetic regulators in myeloid malignancies. Yusra Rev Cancer 2012. PMID:[id number] 26: Robby F, ??Hubert ISSA, ??Efrem Payne et al, CEBPA mutations in 4708 patients with acute myeloid leukemia: differential impact of bZIP and TAD mutations on outcome. Blood 2021. PMID:[id number] 27: Thol F, ??Weissluca EM, ??Sam Lynn et al, IDH1 mutations in patients with myelodysplastic syndromes are associated with an unfavorable prognosis. Haematologica 2010. PMID:[id number] 28: Thol F, ??Lisa Rubin, ??Bro Valdivia et al, Rare occurrence of DNMT3A mutations in myelodysplastic syndromes. Haematologica 2011. PMID:[id number] 29: Josey S, ??Liam SAAB, ??Joan H et al, Genetic alterations of the cohesin complex genes in myeloid malignancies. Blood 2014. PMID:[id number] 30: Barrett MERRITT, ??Tono Stroud, ??Jossue Amador et al, Recurrent DNMT3A mutations in patients with myelodysplastic syndromes. Leukemia 2011. PMID:[id number] 31: Wan Z, Adamson B, Comparison and Implications of Mutational Profiles of Myelodysplastic Syndromes, Myeloproliferative Neoplasms, and Myelodysplastic/Myeloproliferative Neoplasms: A Baker-Analysis. Front Oncol 2020. PMID:[id number] 32: Cornell N, ??Sarabia F, ??Yuval Flower et al, IDH1 Mutation Is an Independent Inferior Prognostic Indicator for Patients with Myelodysplastic Syndromes. Acta Haematol 2017. PMID:42770664 33: Ochoa Stroud, Gabriella R, Hieu ALBERTS, DNMT3A in haematological malignancies. Yusra Rev Cancer 2015. PMID:80451131 This result has been reviewed and approved by Jannette Dutta M.D. Low coverage regions: Listed below are regions where the average sequencing depth (number of times a particular nucleotide is sequenced) in at least 20% of the ziuepv-pr-hfprlaiq is less than our stringent cutoff of [...] NOTCH1; NPM1*; NRAS; NSD1; PHF6; PIGA; PPM1D; OCWQ46H; PRPF8; PTPN11; RAD21; RUNX1; SAMD9; SAMD9L; SETBP1; [...] developed and its performance characteristics determined by [employer]. It has not been cleared or approved by the U.S. Food and Drug Administration. This test was performed in a CLIA-certified laboratory and is intended for clinical purposes. Myeloid Malignancy Dx Mds Unspec 03/28/2024 2:06 PM COFFEE MAKER [facility] ([facility]) Myeloid Malignancy Panel Specimen Bone Marrow 03/28/2024 2:06 PM COFFEE MAKER [facility] ([facility]) EER Myeloid Malignancy See Note 03/28/2024 2:06 PM COFFEE MAKER [facility] ([facility]) Comment: Authorized individuals can access the [facility] Enhanced Report using the following link: [email or web address] Performed By: [facility] Embedly [address] [place] [address] Hop Trainer: Uche Morley MD, PhD CLIA Number: [id number] Other BONE MARROW SPECIMEN / Unknown Collection / Unknown 03/15/2024 9:05 AM COFFEE MAKER 03/15/2024 9:30 AM COFFEE MAKER Rodo Perez MD LAB - PATHOLOG Y/CYTOLOGY ORDERABLES [facility]) [address] [place], [place] [id number] [place] [address] * LAB MISC TEST (NOT BLOOD) (03/15/2024 9:05 AM COFFEE MAKER) Only the most recent of3 resultswithin the time period is included. Test Name Tp53 03/21/2024 12:06 PM [facility] REF LAB NON INTERF Test Result See Scanned Report 03/21/2024 12:06 PM [facility] REF LAB NON INTERF Comment Ref Lab 03/21/2024 12:06 PM [facility] REF LAB NON INTERF Other BONE MARROW SPECIMEN / Unknown Collection / Unknown 03/15/2024 9:05 AM COFFEE MAKER 03/15/2024 9:30 AM COFFEE MAKER Rodo Perez MD LAB - BODY FLU ID ORDERABLES [facility] REF LAB NON INTERF [address] [place] [address], [place] [phone] * FISH PML/DANTE PANEL (03/15/2024 9:05 AM COFFEE MAKER) Only the most recent of2 resultswithin the time period is included. EER PML/DANTE Translocation by Fish See Note 03/17/2024 4:41 PM COFFEE MAKER [email or web address] ([facility]) Comment: Authorized individuals can access the Scan Enhanced Report using the following link: [email or web address] Performed By: [facility] [address] [place] [address] Hop Trainer: Uche Morley MD, PhD CLIA Number: [id number] PML/DANTE Translocation by FISH See Note 03/17/2024 4:41 PM COFFEE MAKER [email or web address] ([facility]) Comment: Test Performed: PML-DANTE Translocation by FISH [...] reviewed and approved by Nabila Gonzalez, PhD, [facility] A portion of this analysis was performed at the following location(s): [facility] Site CG-[place]#2 INTERPRETIVE INFORMATION: PML/DANTE Translocation by FISH This test was developed and its performance characteristics determined by [employer]. It has not been cleared or approved by the US Food and Drug Administration. This test was performed in a CLIA certified laboratory and is intended for clinical purposes. Other BONE MARROW SPECIMEN / Unknown Collection / Unknown 03/15/2024 9:05 AM COFFEE MAKER 03/15/2024 9:30 AM COFFEE MAKER Rodo Perez MD LAB - PATHOLOG Y/CYTOLOGY ORDERABLES [email or web address] [facility]) [address] [place], [place] [address] * CHROMOSOME ANALYSIS BONE MARROW PANEL (03/15/2024 9:05 AM COFFEE MAKER) Chromosome Analysis Bone Marrow See Note Normal 03/22/2024 11:01 AM COFFEE MAKER [facility] [employer] ([facility]) Comment: Test Performed: Chromosome Analysis Specimen Type: [...] study. NOTE: Concurrent FISH PML performed under [facility] accession [id number] was NORMAL. FISHAML and FISH MDS P are PENDING and will be reported under [facility] accessions [id number] and [id number]. This result has been reviewed and approved by Randall Yun, PhD, [facility] A portion of this analysis was performed at the following location(s): [facility] Site CG-[place]#2 [facility] CG-[place]#3 [facility]-[place]#4 [facility] Site -[place]#1 INTERPRETIVE INFORMATION: Chromosome Analysis, Bone Marrow This test was developed and its performance characteristics determined by [facility]. It has not been cleared or approved by the US Food and Drug Administration. This test was performed in a CLIA certified laboratory and is intended for clinical purposes. EER Chromosome Analysis Bone Marrow See Note 03/22/2024 11:01 AM COFFEE MAKER [facility] ([facility]) Comment: Authorized individuals can access the [facility] Report using the following link: [email or web address] Performed By: [facility] [address] [place] [id number] Hop Trainer: Uche Morley MD, PhD [facility] Number: [id number] Bone marrow BONE MARROW SPECIMEN / Unknown 03/15/2024 9:05 AM COFFEE MAKER 03/15/2024 9:30 AM COFFEE MAKER Rodo Perez MD LAB - PATHOLOG Y/CYTOLOGY ORDERABLES [facility] ([facility]) [address] [place] [id number], [place] * FLOW CYTOMETRY BLOOD PROFILE (03/14/2024 10:32 AM COFFEE MAKER) Case Report Flow Cytometry ?Case: [id number] ? Authorizing Provider: ??Ghanshyam Dewey PA-C ? Collected: ? 03/14/2024 10:32 AM ? Ordering Location: ? [facility] 7N ACUTE ? Received: ?03/14/2024 01:49 PM ? Pathologist: ? Angeles Rosado MD ? Specimen: ?Blood ? 03/14/2024 4:58 PM [facility] PATHOLOGY LAB Final Diagnosis Peripheral blood, flow cytometric immunophenotypic analysis: - 1.2% myeloblasts detected - No evidence of a monoclonal B-cell population - See interpretation 03/14/2024 4:58 PM [facility] PATHOLOGY LAB Flow Cytometry Results Differential Result Comment WBC Count /uL 1,200 Total Viability % 100.0 Lymphocytes % 80 Dim CD45 Region % 4 Monocytes % 4 Granulocytes % 13 03/14/2024 4:58 PM [facility] PATHOLOGY LAB Flow Cytometry Interpretation Viability: 100% B-cells: polytypic, kappa:lambda ratio 1.1:1. Blasts: 1.2% of events are myeloblasts. Monocytes are mature. A peripheral blood smear prepared from the flow cytometry specimen has been reviewed for vice president quality assurance purposes. 03/14/2024 4:58 PM [facility] Reason for test MDS (myelodysplastic syndrome) (HCC) 238.75 03/14/2024 4:58 PM [facility] PATHOLOGY LAB Client Specimen ID # [id number] 03/14/2024 4:58 PM COFFEE MAKER U PATHOLOGY LAB Pathologist Location at [facility] 03/14/2024 4:58 PM [facility] PATHOLOGY LAB Disclaimer Test performed at [facility], [address] [place] [address], [address]. *The established laboratory minimum viability is 70%. [...] high complexity clinical testing. 03/14/2024 4:58 PM COFFEE MAKER [facility] PATHOLOGY LAB Embedded Images 4:58 PM COFFEE MAKER [facility] PATHOLOGY LAB Number of markers 19 were performed. A-2 Flow CD10 A-3 Flow CD13 A-5 Flow CD20 A-11 Flow CD2 A-13 Flow CD14 A-16 Flow CD117 A-17 Flow CD11b A-18 Flow CD11c A-1 Flow CD5 A-4 Flow CD19 A-6 Flow CD33 A-7 Flow CD34 A-8 Flow CD45 A-12 Flow CD7 A-14 Flow CD56 A-15 Flow CD64 A-9 [place]+CD19+ A-10 Lambda+CD19+ A-19 Flow HLA-DR 03/14/2024 4:58 PM COFFEE MAKER [facility] PATHOLOGY LAB Blood BLOOD SPECIMEN / Unknown Lab Venipuncture / Unknown 03/14/2024 10:32 AM COFFEE MAKER 03/14/2024 1:49 PM COFFEE MAKER Ghanshyam Dewey PA-C LAB - PATHOLOGY/CYTO LOGY ORDERABLES [facility] PATHOLOGY LAB [address] [phone] * CYTOMEGALOVIRUS (CMV) QUANTITATIVE PLASMA (03/13/2024 11:26 PM COFFEE MAKER) CMV Quant by PCR, Interp Not detected Not detected 03/14/2024 9:00 AM COFFEE MAKER [facility] MICRO[facility] Blood BLOOD SPECIMEN / Unknown Venipuncture / Unknown 03/13/2024 11:26 PM COFFEE MAKER 03/13/2024 11:37 PM COFFEE MAKER Narrative [facility] MICROBIOLOGY - 03/14/2024 9:00 AM COFFEE MAKER The Cytomegalovirus (CMV) DNA analysis utilized a [...] Soler MD LAB - CHEMISTRY OR DERABLES [facility] MICROBIOLOGY [address] [place], [place] [address], [place] [phone] * QUINN-TOVAR VIRUS QUANT BLOOD STL (03/13/2024 11:26 PM COFFEE MAKER) EBV Quant by PCR, Interp Not detected Not detected 03/14/2024 8:56 AM [facility] MICROBIOLOGY Specimen Type Plasma 03/14/2024 8:56 AM [facility] Blood BLOOD SPECIMEN / Unknown Venipuncture / Unknown 03/13/2024 11:26 PM COFFEE MAKER 03/13/2024 11:37 PM COFFEE MAKER Narrative [facility] MICROBIOLOGY - 03/14/2024 8:56 AM COFFEE MAKER The Quinn-Tovar viral (EBV) DNA analysis utilized [...] Soler MD LAB - CHEMISTRY OR DERABLES [facility] MICROBIOLOGY [address] [facility] [place] [address], [place] [phone] * D-DIMER (03/13/2024 11:26 PM COFFEE MAKER) D-Dimer Quantitative <0.27 <=0.50 mcg/mL FEU 03/14/2024 12:[address] [facility] Comment: In the absence of [...] Unknown Venipuncture / Unknown 03/13/2024 11:26 PM COFFEE MAKER 03/13/2024 11:37 PM COFFEE MAKER Ted Soler MD LAB - COAGULATION ORDERABLES Performing Organization Address City/[facility]/ZIP Co de Phone Number [address] [address], [place] [phone] * FIBRINOGEN ACTIVITY (03/13/2024 11:26 PM COFFEE MAKER) Pathologist [facility] Fibrinogen [place]auss 362 200 - 400 mg/dL 03/13/2024 11:59 PM COFFEE MAKER [facility] Blood BLOOD SPECIMEN / Unknown Venipuncture / Unknown 03/13/2024 11:26 PM COFFEE MAKER 03/13/2024 11:37 PM COFFEE MAKER Ted Soler MD LAB - COAGULATION ORDERABLES Performing Organization Address City/[facility]/ZIP Co de Phone Number [address] [address], [place] [phone] * FISH AML+MDS PANEL BLOOD OR BONE MARROW (03/04/2024 4:13 PM COFFEE MAKER) [facility] FISH AML with MDS, Therapy-Rltd AML See Note Normal 03/19/2024 4:32 PM COFFEE MAKER [employer] ([facility]) Comment: Test Performed: Acute Myelogenous Leukemia (AML) [...] with the Therapy-Related AML panel probes D5S23/EGR1, D7Z1/M1H842, and MLL (KMT2A) (SIGKAT). A total of 200 cells were scored for each probe. Cytogenomic Nomenclature (ISCN): nuc nereyda(D5S23,EGR1,D7Z1,W2F443,KMT2A)x2[200' This result has been reviewed and approved by Charles Pablo MD, [facility] INTERPRETIVE INFORMATION: AML with MDS, Therapy-Related AML, FISH This test was developed and its performance characteristics determined by [employer]. It has not been cleared or approved by the US Food and Drug Administration. This test was performed in a CLIA certified laboratory and is intended for clinical purposes. EER AML with MDS, Therapy-Rltd AML FISH See Note 03/19/2024 4:32 PM COFFEE MAKER [email or web address] ([facility]) Comment: Authorized individuals can access the Scan Enhanced Report using the following link: [email or web address] Performed By: [facility] [employer] [address] [place] [address] Hop Trainer: Uche Morley MD, PhD CLIA Number: [id number] Other BLOOD SPECIMEN / Unknown Collection / Unknown 03/04/2024 4:13 PM COFFEE MAKER 03/04/2024 4:23 PM COFFEE MAKER Cindy Garcia MD LAB - PATHOLOGY/CYTO LOGY ORDERABLES [email or web address] [facility]) [address] [place], [place] [id number], [place] * HLA TYPING LOW/HIGH RESOLUTION DPB1 (03/04/2024 4:13 PM COFFEE MAKER) Typ DNA LR DPB1 [place] #1 *04 04/29/2024 2:56 PM COFFEE MAKER [facility] ([facility]) Typ DNA LR DPB1 [place] #2 *11 04/29/2024 2:56 PM COFFEE MAKER [facility] ([facility]) Typ DNA HR DPB1 [place] #1 *04:01:01G 04/29/2024 2:56 PM COFFEE MAKER [facility] ([facility]) Typ DNA HR DPB1 [place] #2 *11:01:01G 04/29/2024 2:56 PM COFFEE MAKER [facility] ([facility]) Test Methodology RTPCR/NGS 04/29/19 2:56 PM COFFEE MAKER [facility] ([facility]) Date Results Entered [id number] 04/29/2024 2:56 PM COFFEE MAKER [facility] ([facility]) Comment: Methodology - Next Generation Sequencing ?? This test was developed and its performance characteristics determined by ?? the [facility]. ??It has not been cleared [...] complexity ?? clinical laboratory testing. ??CLIA ID# [id number] ?? Performed at: [facility], [address] [place] [address] ?? [place], [place] ?? [address] ?? Drainage Inspector: Sandeep Jerry, Ph.D., D([facility]), Blood BLOOD SPECIMEN / Unknown Lab Venipuncture / Unknown 03/04/2024 4:13 PM COFFEE MAKER 03/05/2024 9:56 AM COFFEE MAKER Cindy Garcia MD LAB - BLOOD BANK ORD ERABLES [facility] ([facility]) [address] [place] [address] * HLA TYPING DNA LOW RESOLUTION DR,DQ (03/04/2024 4:13 PM COFFEE MAKER) DR DQ Low Resolution DRB1-1 *07 04/29/2024 2:56 PM COFFEE MAKER [facility] ([facility]) DR DQ Low Resolution DQB1-1 *02 04/29/2024 2:56 PM COFFEE MAKER [facility] ([facility]) DR DQ Low Resolution DRB3-1 Negative 04/29/2024 2:56 PM COFFEE MAKER [facility] ([facility]) DR DQ Low Resolution DRB3-2 Negative 04/29/2024 2:56 PM COFFEE MAKER [facility] ([facility]) DR DQ Low Resolution DRB4-1 *01 04/29/2024 2:56 PM COFFEE MAKER [facility] ([facility]) DR DQ Low Resolution DRB4-2 Negative 04/29/2024 2:56 PM COFFEE MAKER [facility] ([facility]) DR DQ Low Resolution DRB5-1 Negative 04/29/2024 2:56 PM COFFEE MAKER [facility] ([facility]) DR DQ Low Resolution DRB5-2 Negative 04/29/2024 2:56 PM COFFEE MAKER [facility] ([facility]) DR DQ Low Resolution Methodology Real Time PCR 04/29/2024 2:56 PM COFFEE MAKER [facility] ([facility]) DR DQ Low Resolution test date [id number] 04/29/2024 2:56 PM COFFEE MAKER [facility] ([facility]) Comment: Methodology - Real-Time PCR ?? This test was developed and its performance characteristics determined by ?? the [facility]. ??It has not been cleared [...] complexity ?? clinical laboratory testing. ??CLIA ID# [id number] ?? Performed at: [facility], [facility] [address] ?? [facility] ??[address] ?? Drainage Inspector: Sandeep Jerry, Ph.D., D([facility]), Blood BLOOD SPECIMEN / Unknown Lab Venipuncture / Unknown 03/04/2024 4:13 PM COFFEE MAKER 03/05/2024 9:56 AM COFFEE MAKER Cindy Garcia MD LAB - BLOOD BANK ORD ERABLES [facility] ([facility]) [facility] [address] * HLA TYPING DNA LOW RESOLUTION A,B,C (03/04/2024 4:13 PM COFFEE MAKER) ABC DNA A1 *02 04/29/2024 2:56 PM COFFEE MAKER [facility] ([facility]) ABC DNA A2 *30 04/29/2024 2:56 PM COFFEE MAKER [facility] ([facility]) ABC DNA B1 *13 04/29/2024 2:56 PM COFFEE MAKER [facility] ([facility]) ABC DNA B2 *44 04/29/2024 2:56 PM COFFEE MAKER [facility] ([facility]) ABC DNA BW1 4 04/29/2024 2:56 PM COFFEE MAKER [facility] ([facility]) ABC DNA BW2 4 04/29/2024 2:56 PM COFFEE MAKER [facility] ([facility]) ABC DNA C1 *06 04/29/2024 2:56 PM COFFEE MAKER [facility] ([facility]) ABC DNA C2 *16 04/29/2024 2:56 PM COFFEE MAKER [facility] ([facility]) ABC DNA Methodology Real Time PCR 04/29/2024 2:56 PM COFFEE MAKER [facility] ([facility]) ABC DNA Test Date [id number] 2:56 PM COFFEE MAKER [facility] ([facility]) Comment: Methodology - Real-Time PCR ?? This test was developed and its performance characteristics determined by ?? the [facility]. ??It has not been cleared [...] complexity ?? clinical laboratory testing. ??CLIA ID# [id number] ?? Performed at: [facility], [address] [place] [address] ?? [place], [place] ??[address] ?? Drainage Inspector: Sandeep Jerry, Ph.D., D([facility]), Blood BLOOD SPECIMEN / Unknown Lab Venipuncture / Unknown 03/04/2024 4:13 PM COFFEE MAKER 03/05/2024 9:56 AM COFFEE MAKER Cindy Garcia MD LAB - BLOOD BANK ORD ERACAROL Performing Organization Address [facility] Co de Phone Number [facility] ([employer]) [address] * HLA TYPING DNA HIGH RESOLUTION DR (03/04/2024 4:13 PM COFFEE MAKER) Blood BLOOD SPECIMEN / Unknown Lab Venipuncture / Unknown 03/04/2024 4:13 PM COFFEE MAKER 03/05/2024 9:56 AM COFFEE MAKER Narrative [facility] ([facility]) - 04/29/2024 4:00 PM COFFEE MAKER See Scanned Report Cindy Garcia MD LAB - BLOOD BANK ORD ERACAROL Performing Organization Address [facility] Co de Phone Number [facility] ([employer]) [address] * HLA TYPING DNA HIGH RESOLUTION DQ (03/04/2024 4:13 PM COFFEE MAKER) Blood BLOOD SPECIMEN / Unknown Lab Venipuncture / Unknown 03/04/2024 4:13 PM COFFEE MAKER 03/05/2024 9:56 AM COFFEE MAKER Narrative [facility] ([facility]) - 04/29/2024 4:00 PM COFFEE MAKER See Scanned Report Cindy Garcia MD LAB - BLOOD BANK ORD ERACAROL Performing Organization Address [facility]/ZIP Co de Phone Number [facility] ([employer]) [address] * HLA TYPING DNA HIGH RESOLUTION B (03/04/2024 4:13 PM COFFEE MAKER) Blood BLOOD SPECIMEN / Unknown Lab Venipuncture / Unknown 03/04/2024 4:13 PM COFFEE MAKER 03/05/2024 9:56 AM COFFEE MAKER Narrative [facility] ([employer]) - 04/29/2024 4:00 PM COFFEE MAKER See Scanned Report Cindy Garcia MD LAB - BLOOD BANK ORD ERABLES Performing Organization Address City/[facility]/ZIP Co de Phone Number [facility] ([employer]) [address] * HLA TYPING DNA HIGH RESOLUTION A (03/04/2024 4:13 PM COFFEE MAKER) Blood BLOOD SPECIMEN / Unknown Lab Venipuncture / Unknown 03/04/2024 4:13 PM COFFEE MAKER 03/05/2024 9:56 AM COFFEE MAKER Narrative [facility] ([employer]) - 04/29/2024 4:01 PM COFFEE MAKER See Scanned Report Cindy Garcia MD LAB - BLOOD BANK ORD ERABLES Performing Organization Address City/[facility]/ZIP Co de Phone Number [facility] ([employer]) [address] * HLA TYPING DNA HIGH RESOLUTION C (03/04/2024 4:13 PM COFFEE MAKER) Blood BLOOD SPECIMEN / Unknown Lab Venipuncture / Unknown 03/04/2024 4:13 PM COFFEE MAKER 03/05/2024 9:56 AM COFFEE MAKER Narrative [facility] ([facility]) - 04/29/2024 4:01 PM COFFEE MAKER See Scanned Report Cindy Garcia MD LAB - BLOOD BANK ORD ERABLES Performing Organization Address City/[facility]/ZIP Co de Phone Number [facility] ([employer]) [address] * CHROMOSOME ANALYSIS LEUKEMIA BLD (03/04/2024 4:13 PM COFFEE MAKER) [facility] Chromosome Analysis Leukemic Blood See Note Normal 03/23/2024 12:39 PM COFFEE MAKER [email or web address] ([facility]) Comment: Test Performed: Chromosome Analysis Specimen Type: [...] FISH AML/PML and TAML MDS performed under [facility] accessions [id number] and [id number] were NORMAL. This result has been reviewed and approved by Margaret Roberson, PhD, [facility] INTERPRETIVE INFORMATION: Chromosome Analysis, ?Leukemic Blood This test was developed and its performance characteristics determined by [employer]. It has not been cleared or approved by the US Food and Drug Administration. This test was performed in a CLIA certified laboratory and is intended for clinical purposes. EER Chromosome Analysis Leukemic See Note 03/23/2024 12:39 PM COFFEE MAKER [email or web address] ([facility]) Comment: Authorized individuals can access the [facility] Enhanced Report using the following link: [email or web address] Performed By: [facility] [address] [place] [address] Hop Trainer: Uche Morley MD, PhD CLIA Number: [id number] Blood BLOOD SPECIMEN / Unknown Lab Venipuncture / Unknown 03/04/2024 4:13 PM COFFEE MAKER 03/22/2024 5:28 PM COFFEE MAKER Cindy Garcia MD LAB - PATHOLOGY/CYTO LOGY ORDERABLES Performing Organization Address [facility]/ZIP Co de Phone Number [facility] ([facility]) [address] [place] [address] * HIV-1 HIV-2 ANTIBODY + HIV P24 AG PANEL (New on 08/24) (03/04/2024 4:13 PM COFFEE MAKER) Pathologist [facility] HIV Antigen/Antibod y 1 & 2 Non-reacti ve Non-react carlos 03/04/2024 5:[address] [facility] Comment:No Laboratory eviden ce of HIV infection. Blood BLOOD SPECIMEN / Unknown Lab Venipuncture / Unknown 03/04/2024 4:13 PM COFFEE MAKER 03/04/2024 4:23 PM COFFEE MAKER Cindy Garcia MD LAB - CHEMISTRY ORDE RABNIC Performing Organization Address City/[facility]/ZIP Co de Phone Number [facility] [address] [address], [place] [phone] * BCR-ABL1 CML+AML PCR QUANT PNL (03/04/2024 4:13 PM COFFEE MAKER) Pathologist [facility] Interpretation TNP 03/13/2024 5:08 PM COFFEE MAKER [facility] ([facility]) Comment: Unable to obtain results. Repeated efforts to analyze this specimen have been unsuccessful. LOW CONTROL GENE COPY NUMBER INDICATED SPECIMEN DEGRADATION. Director Review Comment 5:08 PM COFFEE MAKER [facility] ([facility]) Comment: Dawodo Sarabia, PhD, [facility] ?Director, Molecular Oncology ?[facility] ?[place] [address] ? Background Comment 03/13/2024 5:08 PM COFFEE MAKER [facility] ([facility]) Comment: This assay can detect three different [...] as indicated. Methodology Comment 03/13/2024 5:08 PM [facility] ([facility]) Comment: Total RNA is isolated from the [...] developed and its performance characteristics determined by [facility]. It has not been cleared or approved by the Food and Drug Administration. Blood BLOOD SPECIMEN / Unknown Lab Venipuncture / Unknown 03/04/2024 4:13 PM COFFEE MAKER 03/04/2024 4:24 PM COFFEE MAKER Narrative [facility] ([facility]) - 03/13/2024 5:08 PM COFFEE MAKER Performed at: ??01 - [facility] [address] [place], [place] ??[id number] Drainage Inspector: Cinthya Roper [facility], Phone: ??[phone] Performed at: ??02 - [facility] [address] [place], [place] ??[id number] Drainage Inspector: Cinthya Roper [facility], Phone: ??[phone] Cindy Garcia MD LAB - CHEMISTRY CHELI MONREAL [facility] ([facility]) [id number] [place] [address] * TSH REFLEX FREE T4 (03/04/2024 4:13 PM COFFEE MAKER) TSH 0.961 0.350 - 4.940 uIU/mL 03/04/2024 5:29 PM COFFEE MAKER [facility] Blood BLOOD SPECIMEN / Unknown Lab Venipuncture / Unknown 03/04/2024 4:13 PM COFFEE MAKER 03/04/2024 4:27 PM COFFEE MAKER Cindy Garcia MD LAB - CHEMISTRY CHELI MONREAL Performing Organization Address City/[facility]/ZIP Co de Phone Number [address] [address], [place] [phone] * RHEUMATOID FACTOR BLOOD QUANTITATIVE (03/04/2024 4:13 PM COFFEE MAKER) Pathologist [facility] Rheumatoid Factor <15 <30 IU/mL 03/04/2024 4:57 PM COFFEE MAKER [facility] Rheumatoid Factor Screen Negative Negative 03/04/2024 4:57 PM COFFEE MAKER [facility] Blood BLOOD SPECIMEN / Unknown Lab Venipuncture / Unknown 03/04/2024 4:13 PM COFFEE MAKER 03/04/2024 4:23 PM COFFEE MAKER Cindy Garcia MD LAB - CHEMISTRY CHELI MONREAL [address] [address], [place] [phone] * CYTOMEGALOVIRUS ANTIBODY IGG BLOOD (03/04/2024 4:13 PM COFFEE MAKER) Cytomegalovirus Antibody IgG <0.20 <=0.70 U/mL 03/05/2024 9:27 PM COFFEE MAKER [facility] ([facility]) Comment: INTERPRETIVE INFORMATION: Cytomegalovirus Antibody, IgG ??0.59 [...] laboratory at the same time. Performed By: [facility] [employer] [address] [place] [address] Hop Trainer: Uche Morley MD, PhD CLIA Number: [id number] Blood BLOOD SPECIMEN / Unknown Lab Venipuncture / Unknown 03/04/2024 4:13 PM COFFEE MAKER 03/04/2024 4:23 PM COFFEE MAKER Cindy Garcia MD LAB - CHEMISTRY ORDNatalie [facility] Organization Address City/State/ZIP Co de Phone Number [facility] ([facility]) [address] [place] [address], [place] * C-REACTIVE PROTEIN (03/04/2024 4:13 PM COFFEE MAKER) C-Reactive Protein 0.5 <=0.5 mg/dL 03/04/2024 4:[address] [facility] Blood BLOOD SPECIMEN / Unknown Lab Venipuncture / Unknown 03/04/2024 4:13 PM COFFEE MAKER 03/04/2024 4:27 PM COFFEE MAKER Cindy Garcia MD LAB - CHEMISTRY ORDE RABLES [address] [place] [address], [place] [phone] * MARLINE BLOOD SCREEN W/REFLEX TITER (03/04/2024 4:13 PM COFFEE MAKER) MARLINE IgG None Detected None Detected 03/05/2024 11:42 PM COFFEE MAKER [facility] ([facility]) Comment: If suspicion of connective tissue disease is strong and MARLINE EIA is negative, consider testing for MARLINE by IFA ([id number]). INTERPRETIVE INFORMATION: Anti-Nuclear Antibodies (MARLINE), IgG by TOÑA Antinuclear Antibodies (MARLINE), IgG by TOÑA: MRALINE specimens are screened using enzyme-linked immunosorbent assay (TOÑA) methodology. All TOÑA results reported as Detected are further tested by indirect fluorescent assay (IFA) using HEp-2 substrate with an IgG-specific conjugate. The MARLINE TOÑA screen is designed to detect antibodies against dsDNA, histones, SS-A (Ro), SS-B (La), Pimentel, Pimentel/LITHOSTRIPPER, Scl-70, Mey-1, centromeric proteins, other antigens extracted from the HEp-2 cell nucleus. MARLINE TOÑA assays have been reported to have lower sensitivities than MARLINE IFA for systemic autoimmune rheumatic diseases (SARD). Negative results do not necessarily rule out SARD. Performed By: [facility] [employer] [address] [place] [address] Hop Trainer: Uche Morley MD, PhD CLIA Number: [id number] Blood BLOOD SPECIMEN / Unknown Lab Venipuncture / Unknown 03/04/2024 4:13 PM COFFEE MAKER 03/04/2024 4:23 PM COFFEE MAKER Cindy Garcia MD LAB - CHEMISTRY CHELI MONREAL [facility]) [address] * ZINC BLOOD (03/04/2024 4:13 PM COFFEE MAKER) Pathologist [facility] Zinc 62.4 60.0 - 120.0 ug/dL 03/06/2024 6:35 AM COFFEE MAKER [employer] ([facility]) Comment: INTERPRETIVE INFORMATION: Zinc, Serum or Plasma [...] developed and its performance characteristics determined by [facility] [employer]. It has not been cleared or approved by the [place] Food and Drug Administration. This test was performed in a CLIA certified laboratory and is intended for clinical purposes. Performed By: [facility] [employer] [address] [place] [address] Hop Trainer: Uche Morley MD, PhD CLIA Number: [id number] Blood BLOOD SPECIMEN / Unknown Lab Venipuncture / Unknown 03/04/2024 4:13 PM COFFEE MAKER 03/04/2024 4:23 PM COFFEE MAKER Cindy Garcia MD LAB - CHEMISTRY CHELI MONREAL [facility]) [address] [place] [address], [place] * COPPER BLOOD (03/04/2024 4:13 PM COFFEE MAKER) [facility] Copper 108.5 70.0 - 140.0 ug/dL 03/06/2024 6:35 AM COFFEE MAKER [facility] ([facility]) Comment: INTERPRETIVE INFORMATION: Copper, Serum or Plasma [...] developed and its performance characteristics determined by [employer]. It has not been cleared or approved by the [place] Food and Drug Administration. This test was performed in a CLIA certified laboratory and is intended for clinical purposes. Performed By: [facility] [address] [place] [address] Hop Trainer: Uche Morley MD, PhD CLIA Number: [id number] Blood BLOOD SPECIMEN / Unknown Lab Venipuncture / Unknown 03/04/2024 4:13 PM COFFEE MAKER 03/04/2024 4:23 PM COFFEE MAKER Cindy Garcia MD LAB - CHEMISTRY ORDE RABLES Performing Organization Address [facility]/ZIP Co de Phone Number [facility] ([facility]) [address] [place], [place] [address] * ERYTHROCYTE SEDIMENTATION RATE (03/04/2024 4:13 PM COFFEE MAKER) Pathologist [facility] Erythrocyte Sedimentation Rate Westergren 14 0 - 20 MM/HR 03/04/2024 5:10 PM COFFEE MAKER [facility] Blood BLOOD SPECIMEN / Unknown Lab Venipuncture / Unknown 03/04/2024 4:13 PM COFFEE MAKER 03/04/2024 4:27 PM COFFEE MAKER Cindy Garcia MD LAB - HEMATOLOGY ORD ERABLES Performing Organization Address [facility]/ZIP Co de Phone Number [address] [address], [place] [phone] * HEPATITIS B SURFACE ANTIBODY (03/04/2024 4:13 PM COFFEE MAKER) Hepatitis B Virus Surface Antibody Non-react carlos Non-react carlos 03/04/2024 5:12 PM COFFEE MAKER [facility] Comment: < 8 mIU/mL Hepatitis B surface Antibody (HBsAb). Nonreactive for HBsAb - individual is considered not immune to Hepatitis B Virus infection. Hepatitis B Surface Antibody Quantitative 0.3 <8.0 mIU/mL 03/04/2024 5:12 PM COFFEE MAKER [facility] Comment: Hepatitis B Surface Antibody Numeric Result Interpretation: ? Nonreactive: ?<8.0 mIU/mL ? Indeterminate: ??8.0 - 12.0 mIU/mL ? Reactive: ?>12.0 mIU/mL ? Blood BLOOD SPECIMEN / Unknown Lab Venipuncture / Unknown 03/04/2024 4:13 PM COFFEE MAKER 03/04/2024 4:23 PM COFFEE MAKER Cindy Garcia MD LAB - CHEMISTRY CHELI MONREAL Performing Organization Address City/[facility]/ZIP Co de Phone Number [address] [address], [place] [phone] * HEPATITIS B CORE ANTIBODY TOTAL (03/04/2024 4:13 PM COFFEE MAKER) Pathologist [facility] HBc Antibody Total Non-reacti ve Non-reacti ve 03/04/2024 5:12 PM COFFEE MAKER [facility] Blood BLOOD SPECIMEN / Unknown Lab Venipuncture / Unknown 03/04/2024 4:13 PM COFFEE MAKER 03/04/2024 4:23 PM COFFEE MAKER Cindy Garcia MD LAB - CHEMISTRY CHELI MONREAL Performing Organization Address [facility] Co de Phone Number [address] [address], [place] [phone] * FOLATE (03/04/2024 4:13 PM COFFEE MAKER) Pathologist [facility] Folate 17.7 7.0 - 31.4 ng/mL 03/04/2024 5:29 PM COFFEE MAKER [facility] Blood BLOOD SPECIMEN / Unknown Lab Venipuncture / Unknown 03/04/2024 4:13 PM COFFEE MAKER 03/04/2024 4:27 PM COFFEE MAKER Cindy Garcia MD LAB - CHEMISTRY CHELI MONREAL Performing Organization Address City/[facility]/ZIP Co de Phone Number [address] [address], [place] [phone] * VITAMIN B12 (03/04/2024 4:13 PM COFFEE MAKER) [facility] Vitamin B12 524 213 - 816 pg/mL 03/04/2024 5:29 PM COFFEE MAKER [facility] Blood BLOOD SPECIMEN / Unknown Lab Venipuncture / Unknown 03/04/2024 4:13 PM COFFEE MAKER 03/04/2024 4:27 PM COFFEE MAKER Cindy Garcia MD LAB - CHEMISTRY CHELI MONREAL [address] [address], [place] [phone] * (ABNORMAL) IRON + TRANSFERRIN PANEL [w/Transferrin Sat % + TIBC] (03/04/2024 4:13 PM COFFEE MAKER) [facility] Iron 31(L) 50 - 175 ug/dL 03/04/2024 4:53 PM [facility] Transferrin 257 174 - 382 mg/dL 03/04/2024 4:53 PM [facility] Transferrin Saturation % 10(L) 16 - 50 % 03/04/2024 4:53 PM [facility] TIBC Calculated 321 240 - 450 ug/dL 03/04/2024 4:53 PM [facility] Blood BLOOD SPECIMEN / Unknown Lab Venipuncture / Unknown 03/04/2024 4:13 PM COFFEE MAKER 03/04/2024 4:23 PM COFFEE MAKER Cindy Garcia MD LAB - CHEMISTRY CHELI MONREAL [address] [address], [place] [phone] * HEPATITIS C ANTIBODY (03/04/2024 4:13 PM COFFEE MAKER) [facility] Hepatitis C Antibody Non-react carlos Non-reac tive 03/04/2024 5:12 PM [facility] Comment:Hepatitis C Antibody screen indicates no serologic evidence of past or current infection with Hepatitis C Virus. Patients with unexplained liver disease who are immunocompromised or suspected of having acute Hepatitis C infection may benefit from Nucleic Acid Test (YUSRA) for Hepatitis C Viral RNA to confirm Hepatitis C status. Blood BLOOD SPECIMEN / Unknown Lab Venipuncture / Unknown 03/04/2024 4:13 PM COFFEE MAKER 03/04/2024 4:23 PM COFFEE MAKER Cindy Garcia MD LAB - CHEMISTRY CHELI MONREAL Performing Organization Address [facility]/ZIP Co de Phone Number [facility] [address] [place] [address], [place] [phone] * (ABNORMAL) FERRITIN (03/04/2024 4:13 PM COFFEE MAKER) Ferritin 21(L) 22 - 275 ng/mL 03/04/2024 5:12 PM COFFEE MAKER [facility] Blood BLOOD SPECIMEN / Unknown Lab Venipuncture / Unknown 03/04/2024 4:13 PM COFFEE MAKER 03/04/2024 4:23 PM COFFEE MAKER Cindy Garcia MD LAB - CHEMISTRY CHELI MONREAL Performing Organization Address [facility] Co de Phone Number [facility] [address] [place] [address], [place] [phone] * DERMATOPATHOLOGY (09/27/2023 12:00 AM CDT) Only the most recent of2 resultswithin the time period is included. Case Report Dermatopathology Report ? Case: [id number] ? Authorizing Provider: ??Timothy Banks MD ? [...] (L82.1) PRESENT AT MARGIN 4 12:35 PM T DERMATOPATHOLOGY LABORATORY Clinical History A-B: Changing lesion 4 12:35 PM T DERMATOPATHOLOGY LABORATORY Gross Description Specimen A: Received is one formalin filled container labeled with the patient's name and designated left neck. The specimen consists of a shave biopsy measuring 21g02d3 mm. Jar 0. Specimen B: Received is [...] determined by the Dermatopathology Laboratory at [facility], directed by Dr. Randall Pringle. These tests need not be, and therefore are not, approved by the [place] Food and Drug Administration. The tests are used for clinical purposes. Billing Codes Specimen Charges Stain Charges 04515 22774 1 1 4 12:35 PM CDT DERMATOPATHOLOGY LABORATORY Embedded Images 4 12:35 PM CDT DERMATOPATHOLOGY LABORATORY Pathology/Cytology TISSUE SPECIMEN FROM SKIN / Unknown 09/27/2023 09/28/2023 10:46 AM CDT Miscellaneous samples (specimen) TISSUE SPECIMEN FROM SKIN / Unknown 09/27/2023 09/28/2023 10:46 AM CDT Timothy Bnaks MD LAB - PATHOLOGY/CYTO LOGY ORDERABLES DERMATOPATHOLOGY LABORATORY [facility] - Department of Dermatology [address], [address] [phone] Care Teams Billet Sawyer Relationship Specialty Start Date End Date Timothy Banks MD [address] [place] [phone] PCP - General 10/19/18 Cindy Garcia MD [address] [place] [address] Commutator Undercutter/Oncologis t Hematology and Oncology 03/24/24
--- OUTSIDE RECORDS SUMMARY | 2024-05-02 14:12 | XMS_ITS | Encounter Summary ---
Author Organization [facility] [employer] [facility] Address [address] [place] [address] Care Team Providers Care Corporate Operations Compliance Manager Name Role Phone Timothy Banks MD Primary Care Provider [phone] Encounter Details Date Type Department Care Team (Late st Contact Info) Description 04/29/2024 Orders Only [facility] Oncology and Hematology - [place] [address] [place] [address] [address] [place] [address] Frank Singh MD [address] [facility] [address] [place] [address] 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) Social History Tobacco Use Types Packs/Day Years Used Date Smoking Tobacco: Never Smokeless Tobacco: Never Alcohol Use Standard Drinks/Week Comments Yes 0 (1 standard drink = 0.6 oz pur e alcohol) Very Ocasionally Sex and Gender Information Value Date Recorded Sex Assigned at Male 04/05/2024 3:07 PM ELASTIC YARN TWISTER HELPER Legal Sex Male 10:53 AM CDT Gender Identity Male 04/05/2024 3:07 PM ELASTIC YARN TWISTER HELPER Sexual Orientation Not on file documented as of this encounter Plan of Treatment Not on file documented as of this encounter Visit Diagnoses Diagnosis 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 [address] PCP - General Family Practice 02/01/24 documented as of this encounter
--- OUTSIDE RECORDS SUMMARY | 2024-05-02 14:12 | XMS_ITS | Clinical Summary ---
Author Organization [facility] Meka Hayes Address [address] [place] [address] Care Team Providers Care Founder President And Ceo Name Role Phone Timothy Banks MD Primary Care Provider [phone] Allergies Active Allergy Reactions Criticality Noted Date Comments Iodinated Contrast Media Hives High 02/01/2024 Medications diltiaZEM (CARDIZEM CD) 120 mg Controlled Delivery 24 hour capsule Take 120 mg by mouth daily. Active lansoprazole (PREVACID) 30 mg Capsule, Delayed Release(E.C.) Take 30 mg by mouth daily. 4 Active folic acid (FOLVITE) 400 mcg Tablet Take 400 mcg by mouth daily. Active cholecalciferol , Vitamin D3, (VITAMIN D3) 25 mcg (1,000 unit) Capsule Take 25 Capsules by mouth daily. Active apixaban (ELIQUIS) 5 mg tablet Take 5 mg by mouth 2 times daily. 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) 04/25/2024 Orders Only [facility] Oncology and Hematology - [place] [address] [place] [address] Frank Singh MD 04/23/2024 External Device Data STL ABSTRACTION Provider, Abstract 04/23/2024 Orders Only [facility] Oncology and Hematology - [place] [address] [place] [address] Frank Singh MD 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) 04/22/2024 Orders Only [facility] Oncology and Hematology - [place] [address] [place] [address] Frank Singh MD 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) 04/17/2024 Orders Only [facility] Oncology and Hematology - [place] [address] [place] [address] Frank Singh MD 04/16/2024 Orders Only [facility] Oncology and Hematology - [place] [address] [place] [address] Frank Singh MD 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) 04/15/2024 Orders Only [facility] Oncology and Hematology - [place] [address] [place] [address] Frank Singh MD 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) 04/09/2024 Orders Only [facility] Oncology and Hematology - [place] [address] [place] [phone] Frank Singh MD 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) 04/08/2024 Orders Only [facility] Oncology and Hematology - [place] [address] [place] [address] Frank Lopez MD 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) 04/05/2024 Orders Only [facility] Oncology and Hematology - [place] [address] [place] [address] Frank Singh MD 04/02/2024 Orders Only [facility] Oncology and Hematology - [place] [address] [place] [address] Frank Singh MD 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) 04/01/2024 Orders Only [facility] Oncology and Hematology - [place] [address] [place] [address] Frank Singh MD 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) 03/28/2024 Orders Only [facility] Oncology and Hematology - [place] [address] [place] [address] Frank Singh MD 03/28/2024 Nurse Triage [facility] Oncology and Hematology - [place] [address] [place] [address] Frank Singh MD 03/26/2024 Orders Only [facility] Oncology and Hematology - [place] [address] [place] [address] Frank Singh MD 03/25/2024 Telephone [facility] Oncology and Hematology - [place] [address] Frank Singh MD Lab Results 03/25/2024 Orders Only [facility] Oncology and Hematology - [place] [address] Frank Singh MD 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 achieved remission ([facility]/HCC) 03/22/2024 Telephone [facility] Oncology and Hematology - [place] [address] [place] [address] Frank Singh MD Chemotherapy 03/22/2024 Telephone [facility] Oncology and Hematology - [place] [address] Frank Singh MD error 02/26/2024 4:30 PM INSIDE SALES DIRECTOR Telephone Check Up [facility] Oncology and Hematology [facility] [address] [place] [phone] Frank Singh MD Chronic anemia (Primary Dx) 02/22/2024 Telephone [facility] Oncology and Hematology - [place] [address] [place] [phone] Frank Singh MD Referral 02/21/2024 Orders Only [facility] Oncology and Hematology - [place] [address] Frank Singh MD 02/16/2024 Orders Only [facility] Oncology and Hematology - [place] [address] [place] [phone] Scanning, Provider 02/06/2024 External Device Data STL ABSTRACTION Provider, Abstract 02/02/2024 Telephone [facility] Oncology and Hematology [facility] [address] [place] [phone] Frank Singh MD Biopsy 02/02/2024 Orders Only [facility] Oncology and Hematology - [place] [address] [place] [address] Frank Singh MD 02/01/2024 1:30 PM CDT Office Visit [facility] Oncology and Hematology [facility] [address] [place] [address] Frank Singh MD Chronic anemia (Primary Dx) 02/01/2024 Orders Only [facility] Oncology and Hematology - [place] [address] [place] [address] Frank Singh MD Chronic anemia (Primary Dx); [...] Sex Assigned at Male 04/05/2024 3:07 PM INSIDE SALES DIRECTOR Legal Sex Male 10:53 AM CDT Gender Identity Male 04/05/2024 3:07 PM INSIDE SALES DIRECTOR Sexual Orientation Not on file Last Filed [...] 2) 02/29/2020 01/04/2020 INFLUENZA VACCINE (#1) 2023 1, 01/09/2020, 01/04/2020, Additional history exists COVID-19 Vaccine (2 - 2023-2 5 season) 2023 04/14/2021 Medicare Advantage (NE) Preventative Visit/Annual Wellness Visit 04/10/2024 DTAP/TDAP/TD VACCINES (2 - T d or Tdap) 09/17/2028 09/17/2018 PNEUMOCOCCAL VACCINE 65+ YEARS Completed 09/17/2018 , 08/27/2015 Procedures Procedure Name Priority Date/Time Associated Diagnosis Comments BASIC METABOLIC PANEL Routine 04/29/2024 4:14 PM INSIDE SALES DIRECTOR BASIC METABOLIC PANEL Routine 04/25/2024 4:21 PM INSIDE SALES DIRECTOR BASIC METABOLIC PANEL Routine 04/08/2024 1:56 PM INSIDE SALES DIRECTOR BASIC METABOLIC PANEL Routine 04/04/2024 3:39 PM INSIDE SALES DIRECTOR CBC WITH DIFFERENTIAL Routine 04/04/2024 1:55 PM INSIDE SALES DIRECTOR BASIC METABOLIC PANEL Routine 04/01/2024 10:11 AM INSIDE SALES DIRECTOR CBC MIXED CELL DIFFERENTIAL Routine 04/01/2024 9:00 AM INSIDE SALES DIRECTOR BASIC METABOLIC PANEL Routine 03/28/2024 1:31 PM INSIDE SALES DIRECTOR CBC WITH DIFFERENTIAL Routine 03/28/2024 1:23 PM INSIDE SALES DIRECTOR BASIC METABOLIC PANEL Routine 03/25/2024 1:24 PM INSIDE SALES DIRECTOR CBC WITH DIFFERENTIAL Routine 03/25/2024 1:23 PM INSIDE SALES DIRECTOR CBC WITH DIFFERENTIAL Routine 03/25/2024 10:28 AM INSIDE SALES DIRECTOR CHROMOSOME ANALYSIS, AMNIOTIC FLUID Routine 02/21/2024 1:39 PM INSIDE SALES DIRECTOR FLOW CYTOMETRY PANEL Routine 02/12/2024 2:53 PM INSIDE SALES DIRECTOR BONE MARROW ASPIRATION & BIOPSY Routine 02/12/2024 7:45 AM INSIDE SALES DIRECTOR BASIC METABOLIC PANEL Routine 02/01/2024 1:36 PM CDT CBC WITH DIFFERENTIAL Routine 02/01/2024 12:49 PM CDT from Last 3 Months Results * BASIC METABOLIC PANEL (04/29/2024 4:14 PM INSIDE SALES DIRECTOR) Only the most recent of8 resultswithin the time period is included. Blood us Frank Singh MD CHEMISTRY ORDERABLES Final Resu lt * CBC WITH DIFFERENTIAL (04/04/2024 1:55 PM INSIDE SALES DIRECTOR) Only the most recent of5 resultswithin the time period is included. Blood us Frank Singh MD HEMATOLOGY ORDERABLES Final Res ult * CBC MIXED CELL DIFFERENTIAL (04/01/2024 9:00 AM INSIDE SALES DIRECTOR) Blood us Frank Singh MD HEMATOLOGY ORDERABLES Final Res ult * CHROMOSOME ANALYSIS, AMNIOTIC FLUID (02/21/2024 1:39 PM INSIDE SALES DIRECTOR) Amniotic fluid AMNIOTIC FLUID / Unknown us Frank Singh MD BODY FLUIDS AND STOOLS Final Re sult * FLOW CYTOMETRY PANEL (02/12/2024 2:53 PM INSIDE SALES DIRECTOR) us Provider Scanning PATHOLOGY/CYTOLOGY ORDERABLES Final Result * BONE MARROW ASPIRATION AND BIOPSY (02/12/2024 7:45 AM INSIDE SALES DIRECTOR) Bone marrow Frank Singh MD PATH/CYTO ORDERABLES COM Final Result from Last 3 Months Insurance [facility] [id number] [facility] Care Teams Founder President And Ceo Relationship Specialty Start Date End Date Timothy Banks MD [address] [place] [address] PCP - General Family Practice 02/01/24
--- OUTSIDE RECORDS SUMMARY | 2024-05-02 14:12 | XMS_ITS | Encounter Summary ---
Author Organization [facility] Address [address] [facility] [place] [address] Care Team Providers Care Radio Time Buyer Name Role Phone Timothy Banks MD Primary Care Provider [phone] Cindy Garcia MD Unavailable Encounter Details Date Type Department Care Team (Late st Contact Info) Description 09/28/2023 Lab Requisition [facility] - DermPath Lab [address] [place] [phone] Timothy Banks MD [address] [place] [address] Social History Tobacco Use Types Packs/Day Years Used Date Smoking Tobacco: Never Assessed Sex and Gender Information Value Date Recorded Sex Assigned at Male 03/05/2024 8:04 AM CHORE WORKER Gender Identity Male 03/05/2024 8:04 AM CHORE WORKER Sexual Orientation Straight 03/05/2024 8: 04 AM CHORE WORKER documented as of this encounter Plan of Treatment Upcoming Encounters Date Type Department Care Team (Late st Contact Info) Description 05/13/2024 10:30 AM CHORE WORKER Appointment [facility] [address] [place] [phone] 05/14/2024 9:00 AM CHORE WORKER Appointment [facility] [address] [place] [phone] 05/15/2024 10:00 AM CHORE WORKER Appointment [facility] [address] [place] [phone] 05/15/2024 1:30 PM CHORE WORKER Appointment [facility] [address] [place] [address] [place] [address] [place] [phone] 05/16/2024 9:00 AM CHORE WORKER Appointment [facility] [address] [place] [phone] 05/17/2024 9:00 AM CHORE WORKER Appointment [facility] [address] [place] [phone] documented as of this encounter Procedures Procedure Name Priority Date/Time Associated Diagnosis Comments DERMATOPATHOLOGY Routine 09/27/2023 12:0 0 AM CDT documented in this encounter Results * DERMATOPATHOLOGY (09/27/2023 12:00 AM CDT) Case Report Dermatopathology Report ? Case: [id number] ? Authorizing Provider: ??Timothy Banks MD ? [...] specimen consists of a shave biopsy measuring 87n11n7 mm. Jar 0. Specimen B: Received is [...] characteristic determined by the Dermatopathology Laboratory at [facility], directed by Dr. Randall Pringle. These tests need not be, and therefore are not, approved by the [place] Food and Drug Administration. The tests are used for clinical purposes. Billing Codes Specimen Charges Stain Charges 14717 13432 1 1 4 12:35 PM CDT DERMATOPATHOLOGY LABORATORY Embedded Images 4 12:35 PM CDT DERMATOPATHOLOGY LABORATORY Pathology/Cytology TISSUE SPECIMEN FROM SKIN / Unknown 09/27/2023 09/28/2023 10:46 AM CDT Miscellaneous samples (specimen) TISSUE SPECIMEN FROM SKIN / Unknown 09/27/2023 09/28/2023 10:46 AM CDT Timothy Banks MD LAB - PATHOLOGY/CYTO LOGY ORDERABLES DERMATOPATHOLOGY LABORATORY [facility] - Department of Dermatology [facility] [address] [place] [address], [address] [phone] documented in this encounter Visit Diagnoses Not on filedocumented in this encounter Care Teams Radio Time Buyer Relationship Specialty Start Date End Date Timothy Banks MD [address] [place] [address] PCP - General 10/19/18 Cindy Garcia MD [address] [place] [address] Permaculture Contractor/Oncologis t Hematology and Oncology 03/24/24 documented as of this encounter
--- OUTSIDE RECORDS SUMMARY | 2024-05-02 14:12 | XMS_ITS | Encounter Summary ---
Author Organization [facility] Address [address] [place] [address] Phone Care Team Providers Care Helicopter Pilot Name Role Phone Timothy Banks MD Primary Care Provider [phone] Encounter Details Date Type Department Care Team (Late st Contact Info) Description 08/25/2017 Orders Only [facility] ProviderDusty MD [address] [place] [id number] Social History Tobacco Use Types Packs/Day Years Used Date Smoking Tobacco: Never Smokeless Tobacco: Never Alcohol Use Standard Drinks/Week Comments Yes 0 (1 standard drink = 0.6 oz pur e alcohol) Sex and Gender Information Value Date Recorded Sex Assigned at Not on file Legal Sex Male 4:19 AM WATER RESOURCE SPECIALIST Gender Identity Male 01/12/2020 7:43 PM [...] on filedocumented in this encounter Care Teams Helicopter Pilot Relationship Specialty Start Date End Date Timothy Banks MD PCP - General 07/08/16 documented as of this encounter
--- OUTSIDE RECORDS SUMMARY | 2024-05-02 14:12 | XMS_ITS | Clinical Summary ---
Author Organization [facility] Address [address] [place] [phone] Phone Care Team Providers Care Karate Teacher Name Role Phone Timothy Banks MD Primary Care Provider [phone] Allergies No known active allergies Medications Medication [...] Highest Risk Completed 09/17/2018, 08/27/2015 Care Teams Karate Teacher Relationship Specialty Start Date End Date Timothy Banks MD [address] [place] [phone] PCP - General Family Medicine 11/14/18
--- OUTSIDE RECORDS SUMMARY | 2024-05-02 14:12 | XMS_ITS | Encounter Summary ---
Author Organization [facility] Address [address] [place] [address] Care Team Providers Care District Or District Office Director Name Role Phone Timothy Banks MD Primary Care Provider [phone] Cindy Garcia MD Unavailable Encounter Details Date Type Department Care Team (Late st Contact Info) Description 02/13/2024 Lab Requisition [facility] - Pathology Lab [address] [place] [address] Rommel Dinh MD [address] [facility] [address] [place] [phone] Illness, unspecified Social History Tobacco Use Types Packs/Day Years Used Date Smoking Tobacco: Never Assessed Sex and Gender Information Value Date Recorded Sex Assigned at Male 03/05/2024 8:04 AM WEEDER THINNER Gender Identity Male 03/05/2024 8:04 AM WEEDER THINNER Sexual Orientation Straight 03/05/2024 8: 04 AM WEEDER THINNER documented as of this encounter Plan of Treatment Upcoming Encounters Date Type Department Care Team (Late st Contact Info) Description 05/13/2024 10:30 AM WEEDER THINNER Appointment [facility] [address] [place] [phone] 05/14/2024 9:00 AM WEEDER THINNER Appointment [facility] [address] [place] [phone] 05/15/2024 10:00 AM WEEDER THINNER Appointment [facility] [address] [place] [address] 05/15/2024 1:30 PM WEEDER THINNER Appointment [facility] [address] [place] [address] [place] [address] [place] [phone] 05/16/2024 9:00 AM WEEDER THINNER Appointment [facility] [address] [place] [phone] 05/17/2024 9:00 AM WEEDER THINNER Appointment [facility] [address] [place] [phone] documented as of this encounter Procedures Procedure Name Priority Date/Time Associated Diagnosis Comments BONE MARROW BIOPSY (STL) Routine 02/12/2024 9:20 AM WEEDER THINNER Illness, unspecified documented in this encounter Results * BONE MARROW BIOPSY (STL) (02/12/2024 9:20 AM WEEDER THINNER) Case Report Bone Marrow Patholog y Report ?Case: [id number] ? Authorizing Provider: ??Rommel Dinh ? Collected: ? 02/12/2024 09:20 AM ? MD Luke ? Ordering Location: ? [facility] - ??Received: ?02/13/2024 12:34 PM ? Pathology Lab ? Pathologist: ? Daniela Bronson MD ? Specimens: ?? A) - Bone Marrow Clot ? B) - Bone Marrow Core ? 02/14/2024 1:43 PM [facility] Final Diagnosis Bone marrow, iliac crest, core biopsy, clot section, and aspirate: - Increased myeloblasts (up to 30% by morphology) with mild trilineage dyspoiesis involving a hypercellular bone marrow (70-80% cellular), see comment - Absent iron stores - Patchy and mild increase in reticulin fibrosis (MF-1) 02/14/2024 1:43 PM [facility] Comment The patient is a [...] a high-grade myeloid neoplasm. 02/14/2024 1:43 PM [facility] Peripheral Smear Description The patient's [...] including numerous giant platelets. 02/14/2024 1:43 PM [facility] Bone Marrow Aspirate Differential count [...] stain): no ring sideroblasts. 02/14/2024 1:43 PM [facility] Bone Marrow Core Biopsy and [...] similar to core biopsy. 02/14/2024 1:43 PM [facility] Flow Cytometry Summary Flow cytometry identified 35% myeloblasts and no diagnostic immunophenotypic evidence of monoclonal B-cells, an aberrant T-cell population, or plasma cell neoplasm ([id number]). 02/14/2024 1:43 PM [facility] Clinical History Chronic leukopenia 02/14/2024 1:43 PM [facility] Materials Received Received are 19 slide(s) and 3 blocks labeled [id number] along with a copy of the outside pathology report. [place] [address]. All original materials are returned to the referring institution, along with a copy of our final report. 02/14/2024 1:43 PM [facility] Microscopic Description CD34 immunohistochemistry stains [...] sections reveal absent stores. 02/14/2024 1:43 PM [facility] Pathologist Location at [facility] 02/14/2024 1:43 PM [facility] Disclaimer The performance characteristics of all immunohistochemical and indirect immunofluorescence stains (if any) cited in this report were determined by the Histopathology Laboratory of [facility]. Some of these tests were developed [...] the attending (teaching) pathologist. 02/14/2024 1:43 PM WEEDER THINNER [facility] Embedded Images 02/14/2024 1:43 PM WEEDER THINNER [facility] Pathology/Cytology BONE MARROW SPECIMEN / Unknown 02/12/2024 9:20 AM WEEDER THINNER 02/13/2024 12:34 PM WEEDER THINNER Miscellaneous samples (specimen) BONE MARROW SPECIMEN / Unknown 02/12/2024 9:20 AM WEEDER THINNER 02/13/2024 12:34 PM WEEDER THINNER Rommel Dinh MD LAB - PATHO LOGY/CYTOLOGY ORDERABLES Performing Organization Address City/State/[facility] de Phone Number [facility] [address] [phone] documented in this encounter Visit Diagnoses Diagnosis Illness, unspecified documented in this encounter Care Teams District Or District Office Director Relationship Specialty Start Date End Date Timothy Banks MD [address] [place] [address] PCP - General 10/19/18 Cindy Garcia MD [address] [place] [address] Processing Archivist/Oncologis t Hematology and Oncology 03/24/24 documented as of this encounter
--- OUTSIDE RECORDS SUMMARY | 2024-05-02 14:12 | XMS_ITS | Clinical Summary ---
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 Name Role Phone Timothy Banks MD [...] 2 Active apixaban (ELIQUIS) 5 mg tabletIndications :FCI current use of anticoagulant therapy Take 1 [...] Department Care Team Description 04/25/2024 3:00 PM VP CLIENT SERVICES Ancillary Procedure [facility] Cardiology [address] [place] [address] 8th [place] [address] [place] [address] SVT (supraventricular tachycardia) ([facility]) 04/25/2024 11:45 AM VP CLIENT SERVICES Office Visit [address] 8[address] [place] [address] [place] [address] Alberto Gallegos MD SVT (supraventricular tachycardia) ([facility]) 03/27/2024 3:15 PM VP CLIENT SERVICES Office Visit [facility] Cardiology [address] [facility] [address] [place] [address] Jayro Kaminski MD SVT (supraventricular tachycardia) ([facility]) (Primary Dx); QAMAR (obstructive sleep apnea); spinner continuous current use of anticoagulant therapy; RBBB; Hypertensive left ventricular hypertrophy, without heart failure; LVH (left ventricular hypertrophy); Bilateral lower extremity edema 03/22/2024 Telephone [facility] Hematology [facility] Floor [address] [place] [id number] Adilene Gonsalves, KEVIN 02/02/2024 Telephone [facility] Cardiology [address] [place] [address] [place] [address] [place] [address] Sally Wisdom 01/31/2024 Telephone [facility] Hematology [address] [place] [address] Floor [address] [place] [address] Adilene Gonsalves, RN from Last 3 Months Immunizations Name Administration [...] 04/09/2018 CHOLECYSTECTOMY 04/10/1995 - 04/09/1996 HERNIA REPAIR 1946/194 PORT PLACEMENT CHEST >5 YEARS 04/11/2024 N/A Medical History Medical History Date Comments Hx Other Medical recurrent DVT, gerd, s/p hiatal hernia surfery, ch; Comments: [facility] 03/31/2016 - Hx Other Medical CKD; Comments: [facility] 03/31/2016 - GERD (gastroesophageal reflux disease) 1974 Cataract 2018 Chronic bronchitis (HCC) ? Heart disease 2016 Chronic kidney disease 2010 Sleep apnea 2018 Family History Medical History Relation Name Comments Alzheimer's disease Brother Emmett Kern Alzheimer's disease Father Jeffrey Kern Alzheimer's [...] on file Legal Sex Male 4:19 AM VP CLIENT SERVICES Gender Identity Male 01/12/2020 7:43 PM CDT Sexual Orientation Straight 01/12/2020 7: 43 PM CDT Obstetrics History Last Filed Vital Signs Vital Sign Reading Time Taken Comments Blood Pressure 142/82 04/25/2024 11:22 AM VP CLIENT SERVICES Pulse 77 04/25/2024 11:22 AM VP CLIENT SERVICES Temperature 36.3 ??C (97.4 ??F) 08/24/2023 9:29 AM CD T Respiratory Rate 18 08/24/2023 9:29 AM CDT Oxygen Saturation 97% 04/25/2024 11:22 AM VP CLIENT SERVICES Inhaled Oxygen Concentration - - Weight 97.8 kg (215 lb 9.6 oz) 04/25/2024 11:22 AM VP CLIENT SERVICES Height 185.4 cm (6' 1 ) 04/25/2024 11:22 AM VP CLIENT SERVICES Body Mass Index 28.44 04/25/2024 11:22 AM VP CLIENT SERVICES Plan of Treatment Health Maintenance Due Date [...] Comments ECG 12-LEAD Routine 04/25/2024 11:28 AM VP CLIENT SERVICES SVT (supraventricular tachycardia) (HCC) from Last 3 Months Results * ECG 12 lead (04/25/2024 11:28 AM VP CLIENT SERVICES) Alberto Gallegos MD ECG ORDERABLES Final R esult from Last 3 Months Insurance [employer] MEDICARE AET MEDICARE T MEDICARE Care Teams Sixth Grade Teacher Relationship Specialty Start Date End Date Timothy Banks MD PCP - General 07/08/16
== END 2024-04-29 14:43 | disposition home or self-care (01) ==
LOC: ANHLAB 14:42
PROVIDERS: PCP Family Medicine; Visit Provider Internal Medicine Hematology & Oncology
DX: C92.00 Acute myeloblastic leukemia, not having achieved remission (principal)
CPT/HCPCS: 36415; 80048; 85025

== ENCOUNTER 2024-05-06 11:10 | Outpatient (CLI) | payer MEDICARE, SELFPAY ==
[2024-05-06 11:25] LABS: Hematocrit 38.1 % (42.0-52.0); Hemoglobin 12.2 g/dL (14.0-18.0); Immature Granulocyte Absolute 0.01 K/mm3 (0.00-0.031); Immature Granulocyte Percent A 0.7 % (0-0.5); Lymphocytes Percent Auto 34.2 % (18.3-44.2); Mean Corpuscular Hemoglobin 29.2 pg (26-34); Mean Corpuscular Volume 91.1 fl (80-100); Mean Platelet Volume 11.8 fl (7.4-10.4); Monocytes Absolute Auto 0.1 K/mm3 (0.1-0.6); Monocytes Percent Auto 6.2 % (2.6-8.5); Neutrophils Absolute Auto 0.9 K/mm3 (1.3-6.7); Neutrophils Percent Auto 58.9 % (45.5-73.1); Platelet Count Result 248 k/mm3 (150-375); Red Blood Count 4.18 M/mm3 (4.6-6.20); Red Cell Distribution Width 19.6 % (11.5-14.5)
[2024-05-06 11:28] LABS: White Blood Count 1.5 K/mm3 (4.5-10.0)
--- OUTSIDE RECORDS SUMMARY | 2024-05-06 12:15 | XMS_ITS | Referral Summary ---
Author Organization [facility] Address [address] [place] [address] Care Team Providers Care Energy Broker Name Role Phone Timothy Banks MD Primary Care Provider [phone] Cindy Garcia MD Unavailable Source Comments [facility],non-owned Affiliates and Associated Physician Practices is amultiple site organization consisting of ambulatory clinics and hospital sitesin [place], [place], [place] and [place]. This disclosure is being madepursuant to the Care Everywhere program and may not contain all information available regarding this patient. 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) 04/22/2024 Travel 04/22/2024 12:45 PM DIRECTOR OF RESIDENCE LIFE - 04/22/2024 11:59 PM DIRECTOR OF RESIDENCE LIFE Hospital Encounter [facility] EKG/HOLTER [address] [place] [phone] Cindy Garcia MD Discharge Disposition: Home or Self Care 04/22/2024 Refill [facility] - Hematology/Oncolog y [address] [place] [address] Cindy Garcia MD Refill Request 04/22/2024 Orders Only [facility] - Hematology/Oncolog y [address] [place] [address] Tg Amezcua, RN 04/22/2024 Orders Only [facility] - Hematology/Oncolog y [address] [place] [address] Tg Amezcua, KEVIN 04/22/2024 Telephone [facility] - Hematology/Oncolog y [address] [place] [address] Nikole Chou RN Appointment 04/22/2024 9:38 AM DIRECTOR OF RESIDENCE LIFE - 04/22/2024 12:44 PM DIRECTOR OF RESIDENCE LIFE Hospital Encounter [facility] [address] [place] [phone] Unknown, Provider Discharge Disposition: Home or Self Care 04/19/2024 Travel 04/19/2024 9:58 AM DIRECTOR OF RESIDENCE LIFE - 04/19/2024 11:59 PM DIRECTOR OF RESIDENCE LIFE Hospital Encounter [facility] [address] [place] [phone] Unknown, Provider Discharge Disposition: Home or Self Care 04/18/2024 Travel 04/18/2024 10:30 AM DIRECTOR OF RESIDENCE LIFE Office Visit [facility] - Hematology/Oncolog y [address] [place] [address] Cindy Garcia MD 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) 04/18/2024 9:32 AM DIRECTOR OF RESIDENCE LIFE - 04/18/2024 11:59 PM DIRECTOR OF RESIDENCE LIFE Hospital Encounter [facility] [address] [place] [phone] Unknown, Provider Discharge Disposition: Home or Self Care 04/17/2024 10:32 AM DIRECTOR OF RESIDENCE LIFE - 04/17/2024 11:59 PM DIRECTOR OF RESIDENCE LIFE Hospital Encounter [facility] [address] [place] [phone] Timothy Banks MD Discharge Disposition: Home or Self Care 04/16/2024 10:00 AM DIRECTOR OF RESIDENCE LIFE - 04/16/2024 11:59 PM DIRECTOR OF RESIDENCE LIFE Hospital Encounter [facility] [address] [place] [phone] Unknown, Provider Discharge Disposition: Home or Self Care 04/15/2024 Orders Only [facility] [address] [place] [phone] Cindy Garcia MD 04/11/2024 5:49 AM DIRECTOR OF RES[employer]ENCE LIFE - 04/11/2024 11:05 AM DIRECTOR OF RESIDENCE LIFE Hospital Encounter [facility] HARRY OP [address] [place] [address] Cindy Garcia MD Interven Radiology Discharge Disposition: Home or Self Care 04/10/2024 Orders Only [facility] [address] [place] [phone] Cindy Garcia MD Chronic kidney disease, unspecified CKD stage 04/05/2024 Orders Only [facility] [address] [place] [phone] Cindy Garcia MD 04/04/2024 Telephone [facility] - Hematology/Oncolog y [address] [place] [phone] Cindy Garcia MD Medication Prior Auth Request 04/01/2024 Orders Only [facility] [address] [place] [phone] Cindy Garcia MD Tumor lysis syndrome (HCC) 04/01/2024 Travel 04/01/2024 3:09 PM DIRECTOR OF RESIDENCE LIFE - 04/01/2024 11:59 PM DIRECTOR OF RESIDENCE LIFE Hospital Encounter [facility]CER CARE DRAWSTATION [address] [place] [address], [address] [place] [address] Discharge Disposition: Home or Self Care 04/01/2024 Orders Only [facility] [address] [place] [phone] Cindy Garcia MD 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) 04/01/2024 2:00 PM DIRECTOR OF RESIDENCE LIFE Office Visit [facility] - Hematology/Oncolog y [address] [place] [phone] Cindy Garcia MD 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) 03/25/2024 Orders Only [facility] [address] [place] [address] Ekta Ferro APRN-COURT BAILIFF 03/25/2024 Orders Only [facility] - Hematology/Oncolog y [address] [place] [phone] Cindy Garcia MD Acute myeloid leuk w multilin dysplasia, 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 [address] [place] [phone] Adamaris Jesus, distribution operation supervisor 03/13/2024 7:14 PM DIRECTOR OF RESIDENCE LIFE - 03/23/2024 1:56 PM DIRECTOR OF RESIDENCE LIFE Hospital Encounter [facility] 7N ACUTE [address] [place] [phone] Cindy Garcia MD Kumar, Ashwath, MD Schrader, Kevin Michael, MD Masud, Josh Chavez MD Internal Medicine Discharge Disposition: Home or Self Care 03/14/2024 Pharmacist Telephone/Documenta tion [facility] [address] [place] [phone] Cindy Garcia MD Medication Monitoring (VENCLEXTA 100 MG TABLET/) 03/14/2024 Telephone [facility] - Hematology/Oncolog y [address] [place] [phone] Cindy Garcia MD Medication Prior Auth Request 03/14/2024 Telephone [facility] - Hematology/Oncolog y [address] [place] [phone] Cindy Garcia MD Medication Prior Auth Request 03/14/2024 Telephone [facility] - Hematology/Oncolog y [address] [place] [phone] Cindy Garcia MD Medication Prior Auth Request 03/13/2024 Travel 03/13/2024 Telephone [facility] [address] [place] [address] Cindy Garcia MD Medication Prior Auth Request 03/13/2024 Orders Only [facility] [address] [place] [address] Sammie Hartman, PharmD 03/13/2024 Orders Only [facility] [address] [place] [address] Cindy Garcia MD 03/04/2024 Travel 03/04/2024 3:35 PM DIRECTOR OF [employer]ENCE LIFE - 03/04/2024 11:59 PM DIRECTOR OF [employer]ENCE LIFE Hospital Encounter [facility] CANCER CARE DRAWSTATION [address] [facility], [address]nd [place] [address] Discharge Disposition: Home or Self Care 03/04/2024 Orders Only [facility] [address] [place] [phone] Cindy Garcia MD MDS (myelodysplastic syndrome) (HCC) 03/04/2024 2:00 PM DIRECTOR [employer]IDENCE LIFE Office Visit [facility] - Hematology/Oncolog y [address] [place] [phone] Cindy Garcia MD MDS (myelodysplastic syndrome) (HCC) (Primary Dx) 03/01/2024 Orders Only [facility] [address] [place] [address] Cindy Garcia MD Neutropenia, unspecified type (HCC) 03/01/2024 Telephone [facility] - Hematology/Oncolog y [address] [place] [phone] Cindy Mansfield MA Appointment (Patient has comfirmed) 02/13/2024 Lab Requisition [facility] - Pathology Lab [address] [place] [phone] Rommel Dinh MD Illness, unspecified 02/12/2024 Lab Requisition [facility] - Pathology Lab [address] [place] [phone] Rommel Dinh MD Decreased white blood cell [...] daily after breakfast 30 tablet 04/22/2024 Active posaconazole (Noxafil) 100 MG tablet Take 3 [...] and heating? Not hard at all 03/13/2024 [facility] - Occupational Stress [...] any time in the past 12 m [facility], were you homeless or living in a alf (including now)? No 03/13/2024 Sex and Gender Information Value Date Recorded Sex Assigned at Male 03/05/2024 8:04 AM DIRECTOR OF [employer]IDENCE LIFE Gender Identity Male 03/05/2024 8:04 AM [employer]OR OF [employer]ENCE [employer] Sexual Orientation Straight 03/05/2024 8: 04 AM DIRECTOR OF RES[employer]ENCE LIFE Last Filed Vital Signs Vital Sign Reading Time Taken Comments Blood Pressure 126/81 04/22/2024 9:47 AM DIRECTOR OF [employer]ENCE LIFE Pulse 61 04/22/2024 9:47 AM [employer]OR OF [employer]ENCE [employer] Temperature 36.2 ??C (97.2 ??F) 04/22/2024 9:47 AM CS T Respiratory Rate 20 04/19/2024 10:07 AM [employer]OR OF [employer]IDENCE LIFE Oxygen Saturation 100% 04/22/2024 9:47 AM DIRECTOR OF RESIDENCE LIFE Inhaled Oxygen Concentration - - Weight 99 kg (218 lb 3.2 oz) 04/22/2024 9:47 AM [employer]OR OF [employer]ENCE LIFE Height 182.9 cm (6') 04/22/2024 9:47 AM DIRECTOR OF [employer]ENCE LIFE Body Mass Index 29.59 04/22/2024 9:47 AM DIRECTOR OF [employer]IDENCE LIFE Functional Status Functional Status Response Date of [...] Care Team (Late st Contact Info) Description 05/15/2024 1:30 PM DIRECTOR OF RESIDENCE LIFE Appointment [facility] [address] [place] [phone] Cindy Garcia MD [address] [place] [phone] 05/16/2024 9:00 AM DIRECTOR OF RESIDENCE LIFE Appointment [facility] [address] [place] [phone] 05/16/2024 9:40 AM DIRECTOR OF RESIDENCE LIFE Office Visit [facility] - Hematology/Oncology [address] [place] [phone] Stephanie Connolly, WATER PROOFER-COURT BAILIFF [address] [place] [phone] 05/17/2024 9:00 AM DIRECTOR OF RESIDENCE LIFE Appointment [facility] [address] [place] [phone] 05/20/2024 9:30 AM DIRECTOR OF RESIDENCE LIFE Appointment [facility] [address] [place] [phone] 05/21/2024 9:00 AM DIRECTOR OF RESIDENCE LIFE Appointment [facility] [address] [place] [phone] 05/22/2024 9:30 AM DIRECTOR OF RESIDENCE LIFE Appointment [facility] [address] [place] [phone] 06/13/2024 9:00 AM DIRECTOR OF RESIDENCE LIFE Appointment [facility] [address] [place] [phone] 06/14/2024 9:00 AM DIRECTOR OF RESIDENCE LIFE Appointment [facility] [address] [place] [phone] 06/17/2024 9:20 AM CDT Appointment [facility] [address] [place] [phone] 06/18/2024 9:20 AM CDT Appointment [facility] [address] [place] [phone] 06/19/2024 9:00 AM CDT Appointment [facility] [address] [place] [phone] Medical Devices Implanted Type Area Systems Design Engineer Device Identifier Shelf Expiration Date Model / Serial / Lot Port Implinfn Powerport Clrvu Argd Kandy Implanted:Qty : 1 on 04/11/2024 by Davian Marshall MD at 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) CBC W AUTO DIFFERENTIAL Routine 04/22/19 25 10:11 AM DIRECTOR OF [employer]IDENCE LIFE Acute myeloid leuk w multilin dysplasia, 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) COMPREHENSIVE METABOLIC PANEL Routine 04/18/2024 9:48 AM DIRECTOR OF [employer]IDENCE LIFE Acute myeloid leuk w multilin dysplasia, 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) CBC W AUTO DIFFERENTIAL Routine 04/18/19 9:48 AM DIRECTOR OF [employer]IDENCE LIFE Acute myeloid leuk w multilin dysplasia, 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) QUANTIFERON-TB GOLD PLUS 4-TUBE Routine 04/16/2024 1:43 PM DIRECTOR OF RESIDENCE LIFE LDH BLOOD Routine 04/16/2024 10:26 AM DIRECTOR OF [employer]IDENCE LIFE Tumor lysis syndrome (HCC) COMPREHENSIVE METABOLIC PANEL Routine 04/16/2024 10:26 AM DIRECTOR OF [employer]IDENCE LIFE Acute myeloid leuk w multilin dysplasia, 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) CBC W AUTO DIFFERENTIAL Routine 04/16/19 10:26 AM DIRECTOR OF [employer]IDENCE LIFE Acute myeloid leuk w multilin dysplasia, 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) COMPREHENSIVE METABOLIC PANEL Routine 04/11/2024 10:54 AM DIRECTOR OF RESIDENCE LIFE Acute myeloid leuk w multilin dysplasia, 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) CBC W AUTO DIFFERENTIAL Routine 04/11/19 10:54 AM DIRECTOR OF [employer]IDENCE LIFE Acute myeloid leuk w multilin dysplasia, 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) IR TIM CATH INSERT Routine 04/11/2024 9:45 AM DIRECTOR OF RESIDENCE LIFE 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) PT-INR [facility] STAT 04/11/2024 7:20 AM DIRECTOR OF RESIDENCE LIFE 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) MDS (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, 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) PHOSPHORUS BLOOD Routine 04/01/2024 3:12 PM DIRECTOR OF [employer]IDENCE LIFE Tumor lysis syndrome (HCC) URIC ACID BLOOD Routine 04/01/2024 3:12 PM DIRECTOR OF [employer]IDENCE LIFE Tumor lysis syndrome (HCC) DIFFERENTIAL MANUAL Routine 04/01/2024 3 :12 PM DIRECTOR OF RESIDENCE LIFE 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) MAGNESIUM BLOOD Routine 04/01/2024 3:12 PM DIRECTOR OF [employer]IDENCE LIFE 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) ERYTHROPOIETIN Routine 04/01/2024 3:12 PM DIRECTOR OF [employer] LIFE 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) SOLUBLE TRANSFERRIN RECEPTOR Routine 04/01/2024 3:12 PM DIRECTOR OF [employer]IDENCE LIFE 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) COMPREHENSIVE METABOLIC PANEL Routine 04/01/2024 3:12 PM DIRECTOR OF [employer]IDENCE LIFE 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) CBC W AUTO DIFFERENTIAL Routine 04/01/20 3:12 PM DIRECTOR OF RESIDENCE LIFE 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) LAB RESULTS ORDER 03/25/2024 DIFFERENTIAL MANUAL AM Draw 03/23/2024 1 2:25 AM DIRECTOR OF RESIDENCE LIFE MAGNESIUM BLOOD Routine 03/23/2024 12:25 AM DIRECTOR OF RESIDENCE LIFE URIC ACID BLOOD Routine 03/23/2024 12:25 AM DIRECTOR OF RESIDENCE LIFE PHOSPHORUS BLOOD Routine 03/23/2024 12:2 5 AM DIRECTOR OF RESIDENCE LIFE COMPREHENSIVE METABOLIC PANEL Routine 03/23/2024 12:25 AM DIRECTOR OF RESIDENCE LIFE LDH BLOOD Routine 03/23/2024 12:25 AM DIRECTOR OF RESIDENCE LIFE PTT [facility] AM Draw 03/23/2024 12:25 AM DIRECTOR OF RESIDENCE LIFE PT-INR [facility] AM Draw 03/23/2024 12:25 AM DIRECTOR OF [employer]IDENCE LIFE CBC W AUTO DIFFERENTIAL AM Draw 03/23/20 12:25 AM DIRECTOR OF RESIDENCE LIFE MAGNESIUM BLOOD Routine 03/22/2024 6:20 PM DIRECTOR OF RESIDENCE LIFE URIC ACID BLOOD Routine 03/22/2024 6:20 PM DIRECTOR OF RESIDENCE LIFE PHOSPHORUS BLOOD Routine 03/22/2024 6:20 PM DIRECTOR OF RESIDENCE LIFE COMPREHENSIVE METABOLIC PANEL Routine 03/22/2024 6:20 PM DIRECTOR OF RESIDENCE LIFE LDH BLOOD Routine 03/22/2024 6:20 PM DIRECTOR OF RESIDENCE LIFE DIFFERENTIAL MANUAL AM Draw 03/22/2024 6 :58 AM DIRECTOR OF RESIDENCE LIFE MAGNESIUM BLOOD Routine 03/22/2024 6:58 AM DIRECTOR OF RESIDENCE LIFE URIC ACID BLOOD Routine 03/22/2024 6:58 AM DIRECTOR OF RESIDENCE LIFE PHOSPHORUS BLOOD Routine 03/22/2024 6:58 AM DIRECTOR OF RESIDENCE LIFE COMPREHENSIVE METABOLIC PANEL Routine 03/22/2024 6:58 AM DIRECTOR OF RESIDENCE LIFE LDH BLOOD Routine 03/22/2024 6:58 AM DIRECTOR OF RESIDENCE LIFE PTT SL[facility] AM Draw 03/22/2024 6:58 AM DIRECTOR OF RESIDENCE LIFE PT-INR [facility] AM Draw 03/22/2024 6:58 AM DIRECTOR OF RESIDENCE LIFE CBC W AUTO DIFFERENTIAL AM Draw 03/22/20 6:58 AM DIRECTOR OF RESIDENCE LIFE MAGNESIUM BLOOD Routine 03/21/2024 3:47 AM DIRECTOR OF RESIDENCE LIFE URIC ACID BLOOD Routine 03/21/2024 3:47 AM DIRECTOR OF RESIDENCE LIFE PHOSPHORUS BLOOD Routine 03/21/2024 3:47 AM DIRECTOR OF RESIDENCE LIFE COMPREHENSIVE METABOLIC PANEL Routine 03/21/2024 3:47 AM DIRECTOR OF RESIDENCE LIFE LDH BLOOD Routine 03/21/2024 3:47 AM DIRECTOR OF RESIDENCE LIFE PTT [facility] AM Draw 03/21/2024 3:47 AM DIRECTOR OF RESIDENCE LIFE PT-INR [facility] AM Draw 03/21/2024 3:47 AM DIRECTOR OF RESIDENCE LIFE CBC W AUTO DIFFERENTIAL AM Draw 03/21/20 3:47 AM DIRECTOR OF RESIDENCE LIFE MAGNESIUM BLOOD Routine 03/20/2024 4:07 PM DIRECTOR OF RESIDENCE LIFE URIC ACID BLOOD Routine 03/20/2024 4:07 PM DIRECTOR OF RESIDENCE LIFE PHOSPHORUS BLOOD Routine 03/20/2024 4:07 PM DIRECTOR OF RESIDENCE LIFE COMPREHENSIVE METABOLIC PANEL Routine 03/20/2024 4:07 PM DIRECTOR OF RESIDENCE LIFE LDH BLOOD Routine 03/20/2024 4:07 PM DIRECTOR OF RESIDENCE LIFE DIFFERENTIAL MANUAL AM Draw 03/20/2024 6 :28 AM DIRECTOR OF RESIDENCE LIFE LDH BLOOD Routine 03/20/2024 6:28 AM DIRECTOR OF RESIDENCE LIFE PTT SLH AM Draw 03/20/2024 6:28 AM DIRECTOR OF RESIDENCE LIFE PT-INR [facility] AM Draw 03/20/2024 6:28 AM DIRECTOR OF RESIDENCE LIFE URIC ACID BLOOD Routine 03/20/2024 6:28 AM DIRECTOR OF RESIDENCE LIFE PHOSPHORUS BLOOD Routine 03/20/2024 6:28 AM DIRECTOR OF RESIDENCE LIFE MAGNESIUM BLOOD Routine 03/20/2024 6:28 AM DIRECTOR OF [employer]IDENCE LIFE COMPREHENSIVE METABOLIC PANEL AM Draw 03/20/2024 6:28 AM DIRECTOR OF [employer]IDENCE LIFE CBC W AUTO DIFFERENTIAL AM Draw 03/20/20 6:28 AM DIRECTOR OF RESIDENCE LIFE DIFFERENTIAL MANUAL AM Draw 03/19/2024 6 :23 AM DIRECTOR OF RESIDENCE LIFE LDH BLOOD Routine 03/19/2024 6:23 AM DIRECTOR OF RESIDENCE LIFE PTT SLH AM Draw 03/19/2024 6:23 AM DIRECTOR OF RESIDENCE LIFE PT-INR [facility] AM Draw 03/19/2024 6:23 AM DIRECTOR OF RESIDENCE LIFE URIC ACID BLOOD Routine 03/19/2024 6:23 AM DIRECTOR OF RESIDENCE LIFE PHOSPHORUS BLOOD Routine 03/19/2024 6:23 AM DIRECTOR OF RESIDENCE LIFE MAGNESIUM BLOOD Routine 03/19/2024 6:23 AM DIRECTOR OF RESIDENCE LIFE COMPREHENSIVE METABOLIC PANEL AM Draw 03/19/2024 6:23 AM DIRECTOR OF [employer]ENCE LIFE CBC W AUTO DIFFERENTIAL AM Draw 03/19/20 6:23 AM DIRECTOR OF [employer]ENCE LIFE EKG 12-LEAD Routine 03/18/2024 1:48 PM DIRECTOR OF [employer]IDENCE LIFE Inverted T wave PATHOLOGY PERIPHERAL SMEAR REVIEW AM Draw 03/18/2024 8:33 AM DIRECTOR OF [employer] LIFE DIFFERENTIAL MANUAL AM Draw 03/18/2024 8 :33 AM DIRECTOR OF RESIDENCE LIFE LDH BLOOD Routine 03/18/2024 8:33 AM DIRECTOR OF RESIDENCE LIFE PTT SLH AM Draw 03/18/2024 8:33 AM DIRECTOR OF RESIDENCE LIFE PT-INR [facility] AM Draw 03/18/2024 8:33 AM DIRECTOR OF RESIDENCE LIFE URIC ACID BLOOD Routine 03/18/2024 8:33 AM DIRECTOR OF [employer]IDENCE LIFE PHOSPHORUS BLOOD Routine 03/18/2024 8:33 AM DIRECTOR OF RESIDENCE LIFE MAGNESIUM BLOOD Routine 03/18/2024 8:33 AM DIRECTOR OF [employer]IDENCE LIFE COMPREHENSIVE METABOLIC PANEL AM Draw 03/18/2024 8:33 AM DIRECTOR OF [employer] CBC W AUTO DIFFERENTIAL AM Draw 03/18/20 24 8:33 AM DIRECTOR OF [employer]ENCE LIFE DIFFERENTIAL MANUAL AM Draw 03/17/2024 5 :28 AM DIRECTOR OF RES[employer]ENCE LIFE LDH BLOOD Routine 03/17/2024 5:28 AM DIRECTOR OF RESIDENCE LIFE PTT SLH AM Draw 03/17/2024 5:28 AM DIRECTOR OF RESIDENCE LIFE PT-INR [facility] AM Draw 03/17/2024 5:28 AM DIRECTOR OF RESIDENCE LIFE URIC ACID BLOOD Routine 03/17/2024 5:28 AM DIRECTOR OF [employer]ENCE LIFE PHOSPHORUS BLOOD Routine 03/17/2024 5:28 AM DIRECTOR OF RESIDENCE LIFE MAGNESIUM BLOOD Routine 03/17/2024 5:28 AM DIRECTOR OF [employer]IDENCE LIFE COMPREHENSIVE METABOLIC PANEL AM Draw 03/17/2024 5:28 AM DIRECT[employer] OF [employer] CBC W AUTO DIFFERENTIAL AM Draw 03/17/20 24 5:28 AM DIRECTOR OF [employer]IDENCE LIFE DIFFERENTIAL MANUAL AM Draw 03/16/2024 1 2:04 AM DIRECTOR OF RESIDENCE LIFE LDH BLOOD Routine 03/16/2024 12:04 AM DIRECTOR OF RESIDENCE LIFE PTT SLH AM Draw 03/16/2024 12:04 AM DIRECTOR OF RESIDENCE LIFE PT-INR [facility] AM Draw 03/16/2024 12:04 AM DIRECTOR OF RESIDENCE LIFE URIC ACID BLOOD Routine 03/16/2024 12:04 AM DIRECT[employer] OF [employer]IDENCE LIFE PHOSPHORUS BLOOD Routine 03/16/2024 12:0 4 AM DIRECTOR OF RESIDENCE LIFE MAGNESIUM BLOOD Routine 03/16/2024 12:04 AM DIRECTOR OF [employer]IDENCE LIFE COMPREHENSIVE METABOLIC PANEL AM Draw 03/16/2024 12:04 AM DIRECTOR OF [employer]ENCE LIFE CBC W AUTO DIFFERENTIAL AM Draw 03/16/20 24 12:04 AM DIRECTOR OF RESIDENCE LIFE ECHO COMPLETE W CONTRAST Routine 03/15/2024 1:47 PM DIRECTOR OF RESIDENCE LIFE MDS (myelodysplastic syndrome) (HCC) MYELOID MALIGNANCIES MUTATION PNL Routine 03/15/2024 9:05 AM DIRECTOR OF [employer]IDENCE LIFE MDS (myelodysplastic syndrome) (HCC) FISH MDS PANEL BLOOD OR BONE MARROW Routine 03/15/2024 9:05 AM DIRECTOR OF [employer]IDENCE LIFE MDS (myelodysplastic syndrome) (HCC) FISH AML PANEL BLOOD OR BM RFLX PML/DANTE Routine 03/15/2024 9:05 AM DIRECTOR OF [employer]IDENCE LIFE MDS (myelodysplastic syndrome) (HCC) FLOW CYTOMETRY BONE MARROW Routine 03/15/2024 9:05 AM DIRECTOR OF [employer]IDENCE LIFE MDS (myelodysplastic syndrome) (HCC) BONE MARROW BIOPSY (STL) Routine 03/15/2024 9:05 AM DIRECTOR OF [employer]IDENCE LIFE MDS (myelodysplastic syndrome) (HCC) FISH PML/DANTE PANEL Routine 03/15/2024 9 :05 AM DIRECTOR OF RESIDENCE LIFE MDS (myelodysplastic syndrome) (HCC) CHROMOSOME ANALYSIS BONE MARROW PANEL Routine 03/15/2024 9:05 AM DIRECTOR OF [employer]IDENCE LIFE MDS (myelodysplastic syndrome) (HCC) LAB MISC TEST (NOT BLOOD) Routine 03/15/2024 9:05 AM DIRECTOR OF [employer] LIFE LAB MISC TEST (NOT BLOOD) Routine 03/15/2024 9:05 AM DIRECT[employer] OF [employer] LIFE LAB MISC TEST (NOT BLOOD) Routine 03/15/2024 9:05 AM DIRECTOR OF [employer]IDENCE LIFE DIFFERENTIAL MANUAL AM Draw 03/15/2024 7 :53 AM DIRECTOR OF RESIDENCE LIFE LDH BLOOD Routine 03/15/2024 7:53 AM DIRECTOR OF RESIDENCE LIFE PTT SLH AM Draw 03/15/2024 7:53 AM DIRECTOR OF RESIDENCE LIFE PT-INR [facility] AM Draw 03/15/2024 7:53 AM DIRECTOR OF RESIDENCE LIFE URIC ACID BLOOD Routine 03/15/2024 7:53 AM DIRECTOR OF [employer]ENCE LIFE PHOSPHORUS BLOOD Routine 03/15/2024 7:53 AM DIRECTOR OF [employer]ENCE LIFE MAGNESIUM BLOOD Routine 03/15/2024 7:53 AM DIRECTOR OF [employer]IDENCE LIFE COMPREHENSIVE METABOLIC PANEL AM Draw 03/15/2024 7:53 AM DIRECTOR OF [employer]ENCE LIFE CBC W AUTO DIFFERENTIAL AM Draw 03/15/20 7:53 AM DIRECTOR OF RESIDENCE LIFE EKG 12-LEAD STAT 03/14/2024 12:30 PM DIRECTOR OF RESIDENCE LIFE MDS (myelodysplastic syndrome) (HCC) FLOW CYTOMETRY BLOOD PROFILE Routine 03/14/2024 10:32 AM DIRECTOR OF RESIDENCE LIFE MDS (myelodysplastic syndrome) (HCC) DIFFERENTIAL MANUAL STAT 03/13/2024 1 1:26 PM DIRECTOR OF RESIDENCE LIFE LDH BLOOD Routine 03/13/2024 11:26 PM DIRECTOR OF RESIDENCE LIFE PTT SLH Routine 03/13/2024 11:26 PM DIRECTOR OF RESIDENCE LIFE PT-INR [facility]H Routine 03/13/2024 11:26 PM DIRECTOR OF RES[employer]ENCE LIFE FIBRINOGEN ACTIVITY Routine 03/13/2024 1 1:26 PM DIRECTOR OF RES[employer]ENCE LIFE D-DIMER Routine 03/13/2024 11:26 PM DIRECTOR OF RESIDENCE LIFE URIC ACID BLOOD Routine 03/13/2024 11:26 PM [employer]OR OF [employer] LIFE PHOSPHORUS BLOOD Routine 03/13/2024 11:2 6 PM DIRECTOR OF [employer]ENCE LIFE MAGNESIUM BLOOD Routine 03/13/2024 11:26 PM DIRECTOR OF RESIDENCE LIFE COMPREHENSIVE METABOLIC PANEL STAT 03/13/2024 11:26 PM DIRECTOR OF [employer]ENCE LIFE CBC W AUTO DIFFERENTIAL STAT 03/13/20 11:26 PM DIRECTOR OF RESIDENCE LIFE QUINN-TOVAR VIRUS QUANT BLOOD STL Routine 03/13/2024 11:26 PM [employer]ENCE LIFE CYTOMEGALOVIRUS (CMV) QUANTITATIVE PLASMA Routine 03/13/2024 11:26 PM [facility] CHROMOSOME ANALYSIS LEUKEMIA BLD Routine 03/04/2024 4:13 PM [facility] [employer] [facility] MDS (myelodysplastic syndrome) (HCC) FISH PML/DANTE PANEL Routine 03/04/2024 4 :13 PM [facility] [employer] MDS (myelodysplastic syndrome) (HCC) FISH AML PANEL BLOOD OR BM RFLX PML/DANTE Routine 03/04/2024 4:13 PM [facility] [employer] MDS (myelodysplastic syndrome) (HCC) FISH AML+MDS PANEL BLOOD OR BONE MARROW Routine 03/04/2024 4:13 PM [facility] [employer] MDS (myelodysplastic syndrome) (HCC) MYELOID MALIGNANCIES MUTATION PNL STAT 03/04/2024 4:13 PM [facility] [employer] [facility] MDS (myelodysplastic syndrome) (HCC) HLA TYPING LOW/HIGH RESOLUTION DPB1 Routine 03/04/2024 4:13 PM [facility] [employer] [facility] MDS (myelodysplastic syndrome) (HCC) HLA TYPING DNA HIGH RESOLUTION DR Routine 03/04/2024 4:13 PM [facility] [employer] [facility] MDS (myelodysplastic syndrome) (HCC) HLA TYPING DNA HIGH RESOLUTION B Routine 03/04/2024 4:13 PM [facility] [employer] [facility] MDS (myelodysplastic syndrome) (HCC) HLA TYPING DNA HIGH RESOLUTION C Routine 03/04/2024 4:13 PM [facility] [employer] [facility] MDS (myelodysplastic syndrome) (HCC) HLA TYPING DNA HIGH RESOLUTION DQ Routine 03/04/2024 4:13 PM [facility] [employer] MDS (myelodysplastic syndrome) (HCC) HLA TYPING DNA HIGH RESOLUTION A Routine 03/04/2024 4:13 PM [facility] [employer] [facility] MDS (myelodysplastic syndrome) (HCC) HLA TYPING DNA LOW RESOLUTION DR,DQ Routine 03/04/2024 4:13 PM [facility] [employer] MDS (myelodysplastic syndrome) (HCC) HLA TYPING DNA LOW RESOLUTION A,B,C Routine 03/04/2024 4:13 PM [facility] [employer] MDS (myelodysplastic syndrome) (HCC) HLA TYPING DNA HIGH RES Routine 03/04/20 4:13 PM [facility] [employer] MDS (myelodysplastic syndrome) (HCC) DIFFERENTIAL MANUAL Routine 03/04/2024 4 :13 PM [facility] [employer] [facility] Neutropenia, unspecified type (HCC) BCR-ABL1 CML+AML PCR QUANT PNL Routine 03/04/2024 4:13 PM [facility] [employer] MDS (myelodysplastic syndrome) (HCC) CYTOMEGALOVIRUS ANTIBODY IGG BLOOD Routine 03/04/2024 4:13 PM [facility] [employer] MDS (myelodysplastic syndrome) (HCC) HEPATITIS C ANTIBODY Routine 03/04/2024 4:13 PM [facility] [employer] Neutropenia, unspecified type (HCC) HEPATITIS B SURFACE ANTIBODY Routine 03/04/2024 4:13 PM [facility] [employer] Neutropenia, unspecified type (HCC) HIV-1 HIV-2 ANTIBODY + HIV P24 AG PANEL Routine 03/04/2024 4:13 PM [facility] [employer] [facility] Neutropenia, unspecified type (HCC) ERYTHROCYTE SEDIMENTATION RATE Routine 03/04/2024 4:13 PM [facility] [employer] Neutropenia, unspecified type (HCC) C-REACTIVE PROTEIN Routine 03/04/2024 4: 13 PM [facility] [employer] [facility] Neutropenia, unspecified type (HCC) RHEUMATOID FACTOR BLOOD QUANTITATIVE Routine 03/04/2024 4:13 PM [facility] [employer] Neutropenia, unspecified type (HCC) MARLINE BLOOD SCREEN W/REFLEX TITER Routine 03/04/2024 4:13 PM [facility] [employer] Neutropenia, unspecified type (HCC) FERRITIN Routine 03/04/2024 4:13 PM [facility] [employer] Neutropenia, unspecified type (HCC) IRON + TRANSFERRIN PANEL Routine 03/04/2024 4:13 PM [facility] [employer] Neutropenia, unspecified type (HCC) TSH REFLEX FREE T4 Routine 03/04/2024 4: 13 PM [facility] [employer] Neutropenia, unspecified type (HCC) ZINC BLOOD Routine 03/04/2024 4:13 PM [employer] [employer] Neutropenia, unspecified type (HCC) COPPER BLOOD Routine 03/04/2024 4:13 PM [employer] [employer] Neutropenia, unspecified type (HCC) FOLATE Routine 03/04/2024 4:13 PM [facility] [employer] Neutropenia, unspecified type (HCC) VITAMIN B12 Routine 03/04/2024 4:13 PM [facility] [employer] Neutropenia, unspecified type (HCC) COMPREHENSIVE METABOLIC PANEL Routine 03/04/2024 4:13 PM [facility] [employer] Neutropenia, unspecified type (HCC) CBC W AUTO DIFFERENTIAL Routine 03/04/20 4:13 PM [facility] [employer] Neutropenia, unspecified type (HCC) HEPATITIS B CORE ANTIBODY TOTAL Routine 03/04/2024 4:13 PM [facility] [employer] Neutropenia, unspecified type (HCC) BONE MARROW BIOPSY (STL) Routine 02/12/2024 9:20 AM [facility] [employer] [facility] Illness, unspecified FLOW CYTOMETRY BONE MARROW Routine 02/12/2024 9:20 AM [facility] [employer] [facility] Decreased white blood cell count, unspecified from Last 3 Months Results * EKG 12-LEAD - HOSPITAL PERFORMED (04/22/2024 1:27 PM [facility] [employer]) Only the most recent of3 resultswithin the time period is included. Ventricular Rate 61 BPM [facility] MUSE Atrial Rate 61 BPM [facility] MUSE P-R Interval 112 ms [facility] MUSE QRS Duration ms 126 ms [facility] MUSE Q-T Interval ms 476 ms [facility] MUSE QTC Calculation (Bezet) 479 ms [facility] MUSE Calculated P Allen 84 degrees [facility] MUSE Calculated R Allen 36 degrees [facility] MUSE Calculated T Allen -163 degrees [facility] MUSE Interpretation EKG NORMAL SINUS RHYTHM NON-SPECIFIC INTRA-VENTRICULA R CONDUCTION BLOCK T WAVE ABNORMALITY, CONSIDER INFERIOR ISCHEMIA T WAVE ABNORMALITY, CONSIDER ANTEROLATERAL ISCHEMIA ABNORMAL ECG WHEN COMPARED WITH ECG OF 18-MAR-2024 13:48, NO SIGNIFICANT CHANGE WAS FOUND Confirmed by MAR ??HANSEL MARTINEZ ([id number]) on 04/23/2024 8:31:57 AM [facility] MUSE 04/22/2024 1:27 PM [facility] [employer] [facility] 04/23/2024 8:31 AM [facility] Cindy Garcia MD ECG ORDERABLES [facility] MUSE * (ABNORMAL) DIFFERENTIAL MANUAL (04/22/2024 10:11 AM [facility] [employer]) Only the most recent of12 resultswithin the time period is included. Neutrophil % 37(L) 41 - 74 % 04/22/2024 11:21 AM [facility] [employer] [facility] Lymphocyte % 39 17 - 47 % 04/22/2024 11:21 AM [facility] [employer] [facility] Monocyte % 22(H) 3 - 11 % 04/22/2024 11:21 AM [facility] Eosinophil % 1 0 - 7 % 04/22/2024 11:21 AM [facility] Metamyelocyte % 1(H) 0% % 11:21 AM [facility] Neutrophil Absolute 0.22(L) 1.60 - 7.50 x10E9/L 04/22/2024 11:21 AM [facility] Lymphocyte Absolute 0.23(L) 1.00 - 4.40 x10E9/L 04/22/2024 11:21 AM [facility] Monocyte Absolute 0.13(L) 0.15 - 1.00 x10E9/L 04/22/2024 11:21 AM [facility] Eosinophil Absolute 0.01 0.00 - 0.60 x10E9/L 04/22/2024 11:21 AM [facility] RBC Morphology REVIEWED 04/22/2024 11:21 AM [facility] Schistocytes MODERATE(A) (none) 04/22/2024 11:21 AM [facility] Large Platelets PRESENT(A) (none) 11:21 AM [facility] Blood BLOOD SPECIMEN / Unknown Venipuncture / Unknown 04/22/2024 10:11 AM [facility] [employer] [facility] 04/22/2024 10:33 AM [facility] Cindy Garcia MD LAB - HEMATOLOGY ORD ERABLES Performing Organization Address City/State/[facility] Co de Phone Number [facility] [address] [place] [id number], [facility] [phone] * (ABNORMAL) CBC WITH DIFFERENTIAL (04/22/2024 10:11 AM [facility]) Only the most recent of16 resultswithin the time period is included. WBC 0.6(LL) 4.0 - 10.7 x10E9/L 04/22/2024 11:21 AM [facility] RBC Count 3.69(L) 4.30 - 5.80 x10E12/L 04/22/2024 11:21 AM [facility] Hemoglobin 10.3(L) 13.3 - 17.5 g/dL 04/22/2024 11:21 AM [facility] Hematocrit 31.8(L) 38.7 - 51.1 % 04/22/2024 11:21 AM [facility] MCV 86.2 80.0 - 98.0 fL 04/22/2024 11:21 AM [facility] MCH 27.9 26.7 - 33.6 pg 04/22/2024 11:21 AM [facility] MCHC 32.4 31.7 - 36.3 g/dL 04/22/2024 11:21 AM [facility] RDW-CV 17.9(H) 11.3 - 14.8 % 04/22/2024 11:21 AM [facility] Platelet Count 212 150 - 420 x10E9/L 04/22/2024 11:21 AM [facility] MPV 12.4(H) 7.8 - 11.4 fL 04/22/2024 11:21 AM [facility] Preliminary Absolute Neutrophil 0.17(L) 1.60 - 7.50 x10E9/L 04/22/2024 11:21 AM [facility] Blood BLOOD SPECIMEN / Unknown Venipuncture / Unknown 04/22/2024 10:11 AM [facility] 04/22/2024 10:33 AM [facility] Cindy Garcia MD LAB - HEMATOLOGY ORD ERABLES [facility] [address] [place] [address], [facility] [phone] * (ABNORMAL) COMPREHENSIVE METABOLIC PANEL (04/22/2024 10:11 AM [facility]) Only the most recent of18 resultswithin the time period is included. BUN 11 7 - 26 mg/dL 04/22/2024 10:58 AM [facility] Creatinine 1.08 0.71 - 1.16 mg/dL 04/22/2024 10:58 AM [facility] Sodium 140 136 - 145 mmol/L 04/22/2024 10:58 AM [facility] Potassium 3.5 3.5 - 4.5 mmol/L 04/22/2024 10:58 AM [facility] Chloride 109(H) 98 - 107 mmol/L 04/22/2024 10:58 AM [facility] CO2 23 22 - 29 mmol/L 04/22/2024 10:58 AM [facility] Glucose 90 70 - 99 mg/dL 04/22/2024 10:58 AM [facility] Calcium 8.7 8.4 - 10.2 mg/dL 04/22/2024 10:58 AM [facility] Protein Total 6.1 6.0 - 8.3 g/dL 04/22/2024 10:58 AM [facility] Albumin 3.4 3.4 - 5.0 g/dL 04/22/2024 10:58 AM [facility] Bilirubin Total 1.1 0.2 - 1.2 mg/dL 04/22/2024 10:58 AM [facility] Alkaline Phosphatase 136 40 - 150 U/L 04/22/2024 10:58 AM [facility] ALT 21 5 - 55 U/L 04/22/2024 10:58 AM [facility] AST 17 5 - 34 U/L 04/22/2024 10:58 AM [facility] Anion Gap 8 6 - 16 04/22/2024 10:58 AM [facility] BUN/Creatinine Ratio 10 7 - 23 04/22/2024 10:58 AM [facility] Osmolality Calculated 289 275 - 295 mOsm/kg 04/22/2024 10:58 AM [facility] Albumin/Globulin Ratio 1.3 1.1 - 2.3 04/22/2024 10:58 AM [facility] eGFR by CKD-EPI 70(L) >=90 mL/min/1.7 3 m2 04/22/2024 10:58 AM [facility] Blood BLOOD SPECIMEN / Unknown Venipuncture / Unknown 04/22/2024 10:11 AM [facility] 04/22/2024 10:31 AM [facility] Cindy Garcia MD LAB - CHEMISTRY CHELI MONREAL [facility] Organization Address City/State/ZIP Co de Phone Number [facility] [address] [place] [address], [facility] [phone] * QUANTIFERON-TB GOLD PLUS 4-TUBE (04/16/2024 1:43 PM [facility] [employer] [facility]) [facility] QuantiFERON Mitogen Minus NIL 9.09 IU/mL 04/18/2024 11:11 PM [facility] [employer] [facility] ([facility]) QuantiFERON Nil Value 0.04 IU/mL 04/18/2024 11:11 PM [facility]) QuantiFERON Plus TB1 Minus NIL 0.00 <=0.34 IU/mL 04/18/2024 11:11 PM [facility] [employer] [facility] ([facility]) QuantiFERON Plus TB2 Minus NIL 0.00 <=0.34 IU/mL 04/18/2024 11:11 PM [facility] [employer] [facility] ([facility]) QuantiFERON-TB Gold Plus Negative Negative 04/18/2024 11:11 PM [facility] [employer] [facility] [employer] ([facility]) Comment: INTERPRETIVE INFORMATION:Quantiferon TB Gold Plus [...] Mycobacterium tuberculosis Infection -- [place], 2010 (http://www.cdc.gov/mmwr/preview/mmwrhtml/du9652i0.htm), for more information concerning test performance in low-prevalence populations and use in occupational screening. Performed By: [facility] [address] [place] [id number] [employer] C[employer] Developer: Uche Morley MD, PhD CLIA Number: [id number] Blood BLOOD SPECIMEN / Unknown Venipuncture / Unknown 04/16/2024 1:43 PM [facility] [employer] [facility] 04/16/2024 2:03 PM [facility] [employer] Cindy Garcia MD LAB - CHEMISTRY CHELI MONREAL [facility]) [address] [place] [id number], [facility] * LDH BLOOD (04/16/2024 10:26 AM [facility] [employer] [facility]) Only the most recent of13 resultswithin the time period is included. LDH Total 197 125 - 243 Units/L 04/16/2024 11:14 AM [facility] Blood BLOOD SPECIMEN / Unknown Venipuncture / Unknown 04/16/2024 10:26 AM [facility] [employer] [facility] 04/16/2024 10:48 AM [facility] [employer] [facility] Cindy Garcia MD LAB - CHEMISTRY CHELI MONREAL [facility] [address] [place] [address], [facility] [phone] * IR Tim Cath Insert (04/11/2024 9:45 AM [facility] [employer] [facility]) Anatomical Region Laterality Modality Chest X-Ray Angiograph y 04/11/2024 9:19 AM [facility] [employer] Impressions 04/11/2024 3:43 PM [facility] Impression: Successful placement of a single lumen 8 Congolese x 23 cm chest power port via [...] evaluation, please review the evaluation forms in [facility]. For details on monitored clinical parameters during the intra-service sedation time, please review the procedure nurse documentation in [facility]. Report dictated by Eduardo Coleman MD, PhD (residential collections). > Dictated by Eduardo Coleman MD (Safe Deposit Clerk) 04/11/2024 9:19 AM IDavian DO have personally reviewed and interpreted this examination/study. 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 3.Fluoroscopy-guided placement of single lumen 8 Congolese x 23 cm chest power port via [...] draped in the usual sterile manner. 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 3.Fluoroscopy-guided placement of single lumen 8 Congolese x 23 cm chestpower port via the [...] and draped inthe usual sterile manner. A speed belt sander tender film of chest was obtained, which was [...] the procedure well [facility]. There were no immediate complicationsassociated with the procedure. Impression: Successful placement of a single lumen 8 Congolese x 23 cmchest power port via the [...] evaluation, please review the evaluation forms in [facility]. For details on monitored clinical parameters during the intra-service sedation time, please review the procedure nurse documentation in [facility]. Report dictated by Eduardo Coleman MD, PhD (residential collections). > Dictated by Eduardo Coleman MD (Safe Deposit Clerk) 04/11/2024 9:19AM Davian Post DO have personally reviewed and interpreted this examination/study. > Interpreting Provider: Davian Marshall DO on 04/11/2024 3:43 PM Cindy Garcia MD IR ORDERABLES * PT-INR [facility] (04/11/2024 7:20 AM [facility] [employer] [facility]) Only the most recent of11 resultswithin the time period is included. PT 14.6 12.1 - 14.8 Seconds 04/11/2024 7:56 AM [facility] INR 1.2 See Comment 04/11/2024 7:56 AM [facility] Comment:The suggested therap eutic range for standard coumadin (warfarin) therapy is an INR of 2.0-3.0. For high-risk patients (Mechanical Mitral Valve Prosthesis, etc.), the suggested prophylactic therapeutic range is an INR of 2.5-3.5. Blood BLOOD SPECIMEN / Unknown Venipuncture / Unknown 04/11/2024 7:20 AM [facility] 04/11/2024 7:23 AM [facility] Cindy Garcia MD LAB - COAGULATION OR DERABLES Performing Organization Address [facility]/ZIP Co de Phone Number [facility] [address] [place] [address], [facility] [phone] * URIC ACID BLOOD (04/01/2024 3:12 PM [facility] [employer] [facility]) Only the most recent of13 resultswithin the time period is included. [facility] Uric Acid 4.0 3.5 - 7.2 mg/dL 04/01/2024 5:52 PM [facility] Blood BLOOD SPECIMEN / Unknown Lab Venipuncture / Unknown 04/01/2024 3:12 PM [facility] [employer] [facility] 04/01/2024 5:30 PM [facility] [facility] Cindy Garcia MD LAB - CHEMISTRY CHELI MONREAL Performing Organization Address [facility] Co de Phone Number [facility] [address] [place] [address], [facility] [phone] * ERYTHROPOIETIN (04/01/2024 3:12 PM [facility] [employer] [facility]) [facility] Erythropoietin 22 4 - 27 mU/mL 04/02/2024 11:36 AM [facility] [employer] [facility] [employer] ([facility]) Comment: INTERPRETIVE INFORMATION: Erythropoietin Normal serum [...] may benefit from therapy with recombinant EPO (NEJ [id number]). Performed By: [facility] [address] [place] [id number] [employer] Crm Developer: Uche Morley MD, PhD CLIA Number: [id number] Blood BLOOD SPECIMEN / Unknown Lab Venipuncture / Unknown 04/01/2024 3:12 PM [facility] [employer] [facility] 04/01/2024 3:22 PM [facility] [employer] [facility] Cindy Garcia MD LAB - CHEMISTRY CHELI Rao Organization Address City/State/ZIP Co de Phone Number [employer] ([facility]) [address] [place] [address], [facility] * SOLUBLE TRANSFERRIN RECEPTOR (04/01/2024 3:12 PM [facility]) [facility] Soluble Transferrin Receptor 3.3 2.2 - 5.0 mg/L 04/02/2024 9:13 PM [facility] [employer] [facility] [employer] ([facility]) Comment: INTERPRETIVE INFORMATION: Soluble Transferrin Receptor [...] ??High ? Normal ? High Performed By: [facility] [address] [place] [address] Sap Crm Developer: Uche Morley MD, PhD CLIA Number: [id number] Blood BLOOD SPECIMEN / Unknown Lab Venipuncture / Unknown 04/01/2024 3:12 PM [facility] [employer] [facility] 04/01/2024 3:22 PM [facility] [employer] [facility] Cindy Garcia MD LAB - CHEMISTRY CHELI MONREAL Performing Organization Address City/[facility] Co de Phone Number [facility] ([facility]) [address] [place], [place] [address] * PHOSPHORUS BLOOD (04/01/2024 3:12 PM [facility]) Only the most recent of13 resultswithin the time period is included. Phosphorus 2.9 2.8 - 5.1 mg/dL 04/01/2024 5:52 PM [facility] Blood BLOOD SPECIMEN / Unknown Lab Venipuncture / Unknown 04/01/2024 3:12 PM [facility] [employer] [facility] 04/01/2024 5:30 PM [facility] [facility] Cindy Garcia MD LAB - CHEMISTRY CHELI MONREAL Performing Organization Address [facility] de Phone Number [place] [id number] [phone] * MAGNESIUM BLOOD (04/01/2024 3:12 PM [facility] [facility]) Only the most recent of13 resultswithin the time period is included. Magnesium 2.1 1.6 - 2.6 mg/dL 04/01/2024 4:25 PM [facility] Comment:Hemolysis detected i n this specimen. Hemolysis is known to cause elevations in this analyte. Caution should be exercised in the interpretation of this result. Recommend repeat testing if clinically indicated. Blood BLOOD SPECIMEN / Unknown Lab Venipuncture / Unknown 04/01/2024 3:12 PM [facility] [employer] [facility] 04/01/2024 3:36 PM [facility] Cindy Garcia MD LAB - CHEMISTRY CHELI MONREAL Performing Organization Address City/[facility] Co de Phone Number [facility] [address] [place] [address], [facility] [phone] * LAB RESULTS ORDER (03/25/2024) 03/25/2024 Narrative 03/25/2024 Ordered by an unspecified provider. Scanned Document LAB - THERAPEUTIC DR UG MONITORING ORDERABLES * PTT [facility] (03/23/2024 12:25 AM [facility] [employer] [facility]) Only the most recent of10 resultswithin the time period is included. APTT 35.4 23.0 - 38.4 Seconds 03/23/2024 1:31 AM [facility] Comment:Suggested therapeuti c range for full dose I.V. unfractionated heparin therapy for venous thromboembolism is 71 to 109 seconds. Blood BLOOD SPECIMEN / Unknown Venipuncture / Unknown 03/23/2024 12:25 AM [facility] 03/23/2024 1:05 AM [facility] Ghanshyam Dewey PA-C LAB - COAGULATION OR DERABLES Performing Organization Address [facility]/ZIP Co de Phone Number [address] [address], [facility] [phone] * PATHOLOGY PERIPHERAL SMEAR REVIEW (03/18/2024 8:33 AM [facility] [employer] [facility]) Path Review Confirmed 03/18/2024 2:44 PM [facility] Blood BLOOD SPECIMEN / Unknown Lab Venipuncture / Unknown 03/18/2024 8:33 AM [facility] [employer] [facility] 03/18/2024 8:46 AM [facility] [facility] Narrative [facility] - 03/18/2024 2:44 PM [facility] [employer] [facility] A rare blast seen. Ghanshyam Dewey PA-C LAB - PATHOLOGY/CYTO LOGY ORDERABLES [address] [address], [place] [phone] * ECHO COMPLETE W CONTRAST (03/15/2024 1:47 PM [facility] [facility]) IVSd 2D 1.314 cm SSM CV RUST I PACS LVIDd 5.186 cm SSM CV RUST I PACS LVIDs 3.212 cm SSM CV RUST I PACS LVOT diam 2.086 cm SSM CV RUST I PACS LVPWd 1.34 cm SSM CV RUST I PACS LV biplane EF 72.906 % SSM CV RUSTI PACS LV A2C EF 72.639 % SSM CV RUST I PACS LV A4C EF 72.078 % SSM CV RUST I PACS LV EDV A2C 124.945 ml SSM CV FU JI PACS LV EDV A4C 128.559 ml SSM CV FU JI PACS LV ESV A2C 34.187 ml SSM CV FU JI PACS LV ESV A4C 35.897 ml SSM CV FU JI PACS LVOT pk lawanda 132.418 cm/s SSM CV F U PACS LVOT VTI 32.536 cm SSM CV RUST I PACS RVIDd 3.985 cm SSM CV RUST I PACS RVOT pk lawanda 69.928 cm/s SSM CV F U PACS RVOT VTI 14.149 cm SSM CV RUST I PACS LA size 3.887 cm SSM CV RUST I PACS LA vol BP 103.263 ml SSM CV RUST I PACS RA area 17.733 cm? ? ? SSM CV RUSTI PACS AV pk lawanda regurg 205.453 cm/s SSM CV RUSTI PACS AR VTI 104.216 cm SSM CV RUST I PACS AV mn grad 5.22 mmHg SSM CV FU PACS AV pk lawanda 141.499 cm/s SSM CV RUST I PACS AV VTI 30.145 cm SSM CV RUST I PACS MV A pk lawanda 84.582 cm/s SSM CV F U PACS MV E pk lawanda 99.639 cm/s SSM CV F U PACS MV E' lateral lawanda 5.461 cm/s SSM CV RUSTI PACS MV mn grad 1.183 mmHg SSM CV FU PACS MV VTI 30.572 cm SSM CV RUST I PACS PV pk lawanda 84.446 cm/s [...] Region Laterality Modality Ultrasound 03/15/2024 2:04 PM [facility] [employer] [facility] Narrative 03/15/2024 5:17 PM [facility] Summary ??* The left ventricle is normal [...] 1945 Gender: ? Male Accession #: ? [id number] Ht: ? 72 in Wt: ? 218 lb BSA: ? 2.26 m2 HR: ? 65 bpm BP: ? 103 / ? 55 mmHg Exam Date: ? 03/15/2024 2:04 PM Patient Status: ? I/P Study Site: ? [facility] Primary Location: ? [facility] EStudy Info Technical Quality: ? Adequate Exam [...] Ted Soler Fellow: ? Josh Knight Fire Engine Pump Operator: ? Dhruv Sorto Left Ventricle ??Left [...] 2:04 PM Patient Status: I/P Study Site: [facility] Primary Location: [facility] EStudy Info Technical Quality: Adequate Exam Type: [...] Physician: Ted Soler Fellow: Josh Knight [employer] Operator: Dhruv Sorto Left Ventricle Left ventricular [...] BLOOD OR BONE MARROW (03/15/2024 9:05 AM [employer]) MDS Panel by Fish See Note Normal 024 11:26 AM [employer] ([facility]) Comment: Test Performed: Myelodysplastic Syndrome (MDS) Panel by FISH (FISH MDS P) Specimen Type: Bone Marrow Indication for Testing: Myelodysplastic syndrome, unspecified RESULT Normal FISH Result Deletion 5q: ??not detected Monosomy 7: ??not detected Deletion 7q: ??not detected Trisomy 8: ??not detected Deletion 20q: ??not detected INTERPRETATION There was no evidence of deletion 5q31, monosomy 7, deletion 7q31, trisomy 8, or deletion 93z95-s03.1. This analysis was performed with the MDS panel probes D5S23/EGR1, D7Z1/O3O655, CEP8 ([employer]), and Del(20q) ([employer]). A total of 200 cells were scored for each probe. Cytogenomic Nomenclature (ISCN): nuc nereyda(D5S23,EGR1,D7Z1,Y9U676,D8Z2,V44M435,MYBL2)x2[200' This result has been reviewed and approved by Nabila Gonzalez, PhD, [facility] A portion of this analysis was performed at the following location(s): [facility] [place]2 INTERPRETIVE INFORMATION: MDS Panel by FISH This test was developed and its performance characteristics determined by [facility]. It has not been cleared or approved by the US Food and Drug Administration. This test was performed in a CLIA certified laboratory and is intended for clinical purposes. EER MDS Fish Panel See Note 2023 11:26 AM DIRECTOR OF [employer]ENCE [employer] [facility] ([facility]) Comment: Authorized individuals can access the [facility] Enhanced Report using the following link: [email or web address] Performed By: [facility] [address] [place] [address] Sap Crm Developer: Uche Morley MD, PhD CLIA Number: [id number] Other BONE MARROW SPECIMEN / Unknown Collection / Unknown 03/15/2024 9:05 AM [employer] 03/15/2024 9:30 AM [employer] Rodo Perez MD LAB - PATHOLOG Y/CYTOLOGY ORDERABLES Performing Organization Address City/State/[facility] Co de Phone Number [facility]) [address] [place] [address], [facility] * FISH AML PANEL BLOOD OR BM RFLX PML/DANTE (03/15/2024 9:05 AM [employer]) Only the most recent of2 resultswithin the time period is included. FISH AML Panel See Note Normal 03/25/2024 10:34 AM DIRECTOR OF [employer]IDENCE [employer] ([facility]) Comment: Test Performed: Acute Myeloid Leukemia Panel by FISH (FISHAML) Specimen Type: Bone Marrow Indication for Testing: Myelodysplastic syndrome, unspecified RESULT Normal FISH Result inv(3) or t(3;3) GATA2::MECOM Fusion: ??not detected Deletion 5q: ??not detected Monosomy 7: ??not detected Deletion 7q: ??not detected t(8;21) RUNX1::PNHS2I4 Fusion: ??not detected 11p15 (NUP98) Rearrangement: ??not detected 11q23 (KMT2A) Rearrangement: ??not detected inv(16) or t(16;16) CBFB::MYH11 Fusion: ??not detected INTERPRETATION There was no evidence of GATA2::MECOM (also known as RPN1-EVI1) fusion due to 3q21/3q26.2 inversion or translocation, deletion 5q31, monosomy 7, deletion 7q31, RUNX1::VYZQ3C4 fusion due to translocation (8;21)(q21.3;q22), 11p15 (NUP98) rearrangement, 11q23 KMT2A (MLL) rearrangement, or CBFB::MYH11 fusion due to either 16p13.1/16q22 inversion or translocation. This analysis was performed with the AML panel probes RPN1/MECOM, D5S23/EGR1, D7Z1/M1A770, RUNX1/XHWT1Z8 ([employer]), NUP98 and CBFB-MYH11 ([employer]ems), and MLL (KMT2A) (Bebo). A total of 200 cells were scored for each probe. Cytogenomic Nomenclature (ISCN): nuc nereyda(RPN1,MECOM,D5S23,EGR1,D7Z1,R4D981,IHIY8D2,NUP98,KMT2A,MYH11,CBF B,RUNX1)x2[200' This result has been reviewed and approved by Mundo Mejia, PhD, [facility] A portion of this analysis was performed at the following location(s): [facility] [place] INTERPRETIVE INFORMATION: AML Panel by FISH This test was developed and its performance characteristics determined by [facility]. It has not been cleared or approved by the US Food and Drug Administration. This test was performed in a CLIA certified laboratory and is intended for clinical purposes. EER AML Panel by FISH See Note 03/25/2024 10:34 AM DIRECT[employer]ENCE [employer] ([facility]) Comment: Authorized individuals can access the [facility] Enhanced Report using the following link: [email or web address] Performed By: [facility] [address] [place] [address] Sap Crm Developer: Uche Morley MD, PhD CLIA Number: [id number] Other BONE MARROW SPECIMEN / Unknown Collection / Unknown 03/15/2024 9:05 AM [employer] 03/15/2024 9:30 AM [employer] Rodo Perez MD LAB - PATHOLOG Y/CYTOLOGY ORDERABLES [facility] ([facility]) [address] [place] [address], [facility] * FLOW CYTOMETRY BONE MARROW (03/15/2024 9:05 AM [employer]) Only the most recent of2 resultswithin the time period is included. Case Report Flow Cytometry ?Case: [id number] ? Authorizing Provider: ??Rodo Perez, ?? Collected: ? 03/15/2024 09:05 AM ? MD ? Ordering Location: ? [facility] 7N ACUTE ? Received: ?03/15/2024 09:30 [...] specimen has been reviewed for quality assurance monitor purposes. Correlation with the concurrent bone marrow biopsy ([id number]) is required. 03/15/2024 2:40 PM [facility] Client Specimen ID # [id number] 03/15/2024 2:40 PM [facility] [...] CD56 A-15 Flow CD64 A-23 cyCD22 A-24 zqED78g A-9 Choct[place]+CD19+ A-10 Lambda+CD19+ A-19 Flow HLA-DR A-20 Flow MPO A-21 Flow TdT A-22 cyCD3 03/15/2024 2:40 PM [employer] [facility] Pathologist Location at [facility] 03/15/2024 2:40 PM [facility] Disclaimer Test performed at [facility], [address] [place] [address], [facility]. *The established laboratory minimum viability is 70%. [...] Unknown Collection / Unknown 03/15/2024 9:05 AM [employer] 03/15/2024 9:30 AM [employer] Rodo Perez MD LAB - PATHOLOG Y/CYTOLOGY ORDERABLES [facility] [address] [place] [address]. [place] [address], [facility] [phone] * BONE MARROW BIOPSY (STL) (03/15/2024 9:05 AM [employer]) Only the most recent of2 resultswithin the time period is included. Case Report Bone Marrow Patholog y Report ?Case: [id number] ? Authorizing Provider: ??Rodo Perez, ?? Collected: [...] Summary Bone marrow, flow cytometric immunophenotypic analysis ([id number]): - Paucicellular specimen with increased myeloblasts detected [...] [facility] Pathologist Location at [facility] 03/18/2024 4:01 PM [facility] Disclaimer The performance characteristics of all immunohistochemical and indirect immunofluorescence stains (if any) cited in this report were determined by the Histopathology Laboratory of [facility]. Some of these tests were [...] the attending (teaching) pathologist. 03/18/2024 4:01 PM [employer] [facility] Embedded Images 03/18/2024 4:01 PM [employer] [facility] Pathology/Cytology PERIPHERAL BLOOD / Unknown Collection / Unknown 03/15/2024 9:05 AM [employer] 03/15/2024 9:30 AM [employer] Miscellaneous samples (specimen) BONE MARROW SPECIMEN / Unknown 03/15/2024 9:05 AM [employer] 03/15/2024 9:30 AM [employer] Miscellaneous samples (specimen) SPECIMEN FROM BONE MARROW OBTAINED BY ASPIRATION / Unknown 03/15/2024 9:05 AM [employer] 03/15/2024 9:30 AM [employer] Miscellaneous samples (specimen) PERIPHERAL BLOOD / Unknown 03/15/2024 9:05 AM [employer] 03/15/2024 11:39 AM [employer] Rodo Perez MD LAB - PATHOLOG Y/CYTOLOGY ORDERABLES Performing Organization Address City/State/[facility] Co de Phone Number [facility] [address] [phone] * MYELOID MALIGNANCIES MUTATION PNL (03/15/2024 9:05 AM [employer]) Only the most recent of2 resultswithin the time period is included. Interpretation Myeloid Malignancy PNL See Note 03/28/2024 2:06 PM [facility] [employer] ([facility]) Comment: Myeloid Malignancies Mutation Panel NGS Submitted diagnosis or diagnosis under consideration for variant interpretation: Myelodysplastic syndrome, unspecified Note: Prior NGS testing performed on this patient (most recent [employer] accession [id number]) was reviewed in conjunction with the current case to compare molecular variants reported. The previously reported molecular variants DNMT3A, IDH1, and CUX1 are again detected in the current study. In addition, new molecular variants in STAG2, BCOR, JAK2, and CEBPA are now detected. TIER 1: Variants of Known Clinical Significance in Hematologic Malignancies 1. IDH1 c.394C>A, p.Vfz550Rvk (NM_[id number]) VAF: 38.4% IDH1 encodes an enzyme that catalyzes the conversion of isocitrate to alpha-ketoglutarate in the citric acid cycle (23). Somatic mutations of IDH1 are found in 4-12% of patients with myelodysplastic syndrome (MDS).This mutation has been reported in hematologic malignancies (4). The prognostic significance of mutated IDH1 in MDS is uncertain (20) (27) (7) (14) (19) (32). 2. DNMT3A c.2206C>T, p.Kcg917Ita (NM_[id number]) VAF: 42.2% DNMT3A encodes a DNA [...] stem cell transplantation (2). 3. DNMT3A c.2407A>G, p.Rko000Cww (NM_175629.2) VAF: 38.8% This mutation has also been reported in hematologic malignancies (4). 4. JAK2 c.1849G>T, p.Eak641Tpt (NM_004972.4) VAF: 14.4% JAK2 encodes a non-receptor protein tyrosine kinase that regulates STAT owner factors in response to cytokine receptor signaling (13). JAK2 mutations have been reported in 3-6% of patients with MDS (6) (15) (31). This JAK2 mutation (p.Lqa104Mtl) has also been reported in approximately 10-25% of patients with myelodysplastic/myeloproliferative neoplasms (MDS/MPN) (31) (21). This particular JAK2 mutation occurs in the pseudokinase (JH2) domain and leads to activation of the NOLAN-STAT pathway signaling. The prognostic significance of JAK2 mutations in MDS is unclear (6). 5. STAG2 c.1840C>T, p.Lrt063* (NM_[id number]) VAF: 31.7% STAG2 encodes a subunit [...] unmutated cohesin genes (29). 6. BCOR c.3649C>T, p.Npa0289* (NM_[id number]) VAF: 9.6% BCOR encodes a transcriptional corepressor that interacts with BCL-6 and histone deacetylases (HDACs) (5) (12). Mutations in BCOR are seen in 4% of patients with MDS (5) (11). BCOR mutations in MDS are often frameshift and nonsense mutations that result in wwdb-oe-zqecvnmh (5) (11). This mutation is predicted to alter the normal function of BCOR. BCOR mutations are associated with a higher incidence of AML transformation in MDS patients and shorter overall survival in MDS patients (5) (11) (16). 7. BCOR c.635_638del, p.Esa713Ngjul*3 (NM_[id number]) VAF: 6.2% This mutation is also predicted to alter the normal function of BCOR. TIER 2: Variants of Unknown Clinical Significance in Hematologic Malignancies 1. CEBPA c.1074_*9del, p.*359Cysext*58 (NM_[id number]) VAF: 4.7% CEBPA encodes a protein that is a member of the basic region leucine zipper family of owner factors (18). Somatic mutations of CEBPA are [...] if any, is uncertain. 2. CUX1 c.3085G>A, p.Mhv5791Exb (NM_181552.4) VAF: 44.8% This variant has been rarely reported in hematologic malignancies (1) (10), to the best of our knowledge. References 1: Lynnette P, ??Emmanuelle Kim, ??Zhanna CLARK et al, Assessment of Minimal Residual Disease by Next Generation Sequencing in Peripheral Blood as a Complementary Tool for Personalized Transplant Monitoring in Myeloid Neoplasms. J Clin Med 2020. PMID:60515088 2: Virginie R, ??Juan HERNANDEZ, ??Ulises Kim et al, Somatic mutations predict poor outcome in patients with myelodysplastic syndrome after hematopoietic stem-cell transplantation. J Clin Oncol 2014. PMID:92835910 3: cBioPortal: http://www.cbioportal.org/ 4: COSMIC: https://cancer.vipin.ac.uk/cosmic 5: Braulio F, ??Yu Barcenas, ??Camilla Y et al, BCOR and BCORL1 mutations in myelodysplastic syndromes and related disorders. Blood 2013. PMID:29609953 6: Bill M, ??Jennifer C, ??Víctor Stroud et al, JAK2 Mutations Are Rare and Diverse in Myelodysplastic Syndromes: Case Series and Review of the Literature. Hematol Rep 2022. PMID:41780926 7: Jahaira CD, ??Kamla E, ??Mary Mason et al, IDH1 and IDH2 mutations in myelodysplastic syndromes and role in disease progression. Leukemia 2016. PMID:75315017 8: Fried I, ??Day C, ??Lenin MURPHY et al, Frequency, onset and clinical impact of somatic DNMT3A mutations in therapy-related and secondary acute myeloid leukemia. Haematologica 2012. PMID:66163253 9: Nuha O, ??Idania D, ??Luanne Payne et al, CEBPA polymorphisms and mutations in patients with acute myeloid leukemia, myelodysplastic syndrome, multiple myeloma and non-Hodgkin's lymphoma. Blood Cells Mol Dis 2008. PMID:58670532 10: Cassandra Kim, ??Cornell M, ??Alexis Vadlivia et al, DNA methylation epitypes highlight underlying developmental and disease pathways in acute myeloid leukemia. Genome Res 2020. PMID:10018576 11: Ivan Barcenas, ??Jenna E, ??Alondra AB et al, Whole-exome sequencing identifies somatic mutations of BCOR in acute myeloid leukemia with normal karyotype. Blood 2011. PMID:39837287 12: Lin RUEDA, ??Yashira W, ??Darcie Estrada et al, BCoR, a novel corepressor involved in BCL-6 repression. Genes Dev 2000. PMID:37729904 13: Fabian SS, ??Jen SJ, ??Amandeep LR et al, Nolan/STAT pathways in cytokine signaling and myeloproliferative disorders: approaches for targeted therapies. Genes Cancer 2010. PMID:87684714 14: Jose J O, ??Charity V, ??Grayson Stroud et al, Mutations of IDH1 and IDH2 genes in early and accelerated phases of myelodysplastic syndromes and MDS/myeloproliferative neoplasms. Leukemia 2010. PMID:42239265 15: Malaika M, ??Catherine C, ??Ahsan Talavera et al, Molecular analysis of myelodysplastic syndrome with isolated deletion of the long arm of chromosome 5 reveals a specific spectrum of molecular mutations with prognostic impact: a study on 123 patients and 27 genes. Haematologica 2017. PMID:16330960 16: Gregoria KH, ??Meliton T, ??Valerie Payne et al, Spectrum and prognostic relevance of electric screw driver operator gene mutations in acute myeloid leukemia. Blood 2016. PMID:02362037 17: Nicol T, ??Mel MEANS, ??Milton P et al, Dominant-negative mutations of CEBPA, encoding CCAAT/enhancer binding protein-alpha (C/EBPalpha), in acute myeloid leukemia. Yusra Emely 2001. PMID:26511865 18: Mel Hughes, Complexity of CEBPA dysregulation in human acute myeloid leukemia. Clin Cancer Res 2009. PMID:75529004 19: Kaelammajean pierre E, ??Jose M, ??Hugh Stroud et al, Clinical and biological implications of electric screw driver operator mutations in myelodysplastic syndromes. Blood 2013. PMID:10638194 20: Eileen MM, ??Rajinder CA, ??Juju OTERO et al, Differential prognostic effect of IDH1 versus IDH2 mutations in myelodysplastic syndromes: a [facility] study of 277 patients. Leukemia 2012. PMID:84272087 21: Eileen MM, George TL, Genomics of myelodysplastic syndrome/myeloproliferative neoplasm overlap syndromes. Hematology Am Soc Hematol Educ Program 2020. PMID:34856672 22: Marty C, ??Maryot C, ??Heather Flower et al, Favorable prognostic significance of CEBPA mutations in patients with de elinor acute myeloid leukemia: a study from the Acute Leukemia [place] Association (JOSE). Blood 2002. PMID:61466516 23: Bulmaro BENTON, Josse H, Isocitrate dehydrogenase 1 and 2 mutations in cancer: alterations at a crossroads of cellular metabolism. J Natl Cancer Inst 2010. PMID:31952902 24: Jose A, ??Ivan Barcenas, ??Yudi U et al, Humphrey analysis of DNMT3A mutations in hematological malignancies. Leukemia 2013. PMID:59778060 25: Kim LANZA, ??Lisa-Hussein Broussard, ??Arnulfo REINOSO et al, The role of mutations in epigenetic regulators in myeloid malignancies. Yusra Rev Cancer 2012. PMID:41317953 26: Taube F, ??Hubert ISSA, ??Efrem Payne et al, CEBPA mutations in 4708 patients with acute myeloid leukemia: differential impact of bZIP and TAD mutations on outcome. Blood 2021. PMID:72115088 27: Thol F, ??Roverto EM, ??Sam Lynn et al, IDH1 mutations in patients with myelodysplastic syndromes are associated with an unfavorable prognosis. Haematologica 2010. PMID:69137178 28: Thol F, ??Lisa C, ??Bro Valdivia et al, Rare occurrence of DNMT3A mutations in myelodysplastic syndromes. Haematologica 2011. PMID:33834567 29: Josey S, ??Liam AD, ??Joan H et al, Genetic alterations of the cohesin complex genes in myeloid malignancies. Blood 2014. PMID:91479826 30: Barrett MERRITT, ??Tono Stroud, ??Jossue Amador et al, Recurrent DNMT3A mutations in patients with myelodysplastic syndromes. Leukemia 2011. PMID:89176628 31: Lawrence Camargo, Juan Diego B, Comparison and Implications of Mutational Profiles of Myelodysplastic Syndromes, Myeloproliferative Neoplasms, and Myelodysplastic/Myeloproliferative Neoplasms: A [place]-Analysis. Front Oncol 2020. PMID:00917046 32: Cornlel N, ??Cornell F, ??Yuval N et al, IDH1 Mutation Is an Independent Inferior Prognostic Indicator for Patients with Myelodysplastic Syndromes. Acta Haematol 2017. PMID:12805705 33: Ochoa L, Gabriella R, Hieu ALBERTS, DNMT3A in haematological malignancies. Yusra Rev Cancer 2015. PMID:61323737 This result has been reviewed and approved by Jannette Dutta M.D. Low coverage regions: Listed below are regions where the average sequencing depth (number of times a particular nucleotide is sequenced) in at least 20% of the segbkv-fn-jheycfjn is less than our stringent cutoff of [...] NOTCH1; NPM1*; NRAS; NSD1; PHF6; PIGA; PPM1D; WLOS02U; PRPF8; PTPN11; RAD21; RUNX1; SAMD9; SAMD9L; SETBP1; [...] developed and its performance characteristics determined by [facility]. It has not been cleared or approved by the U.S. Food and Drug Administration. This test was performed in a CLIA-certified laboratory and is intended for clinical purposes. Myeloid Malignancy Dx Mds Unspec 03/28/2024 2:06 PM [employer]OR [employer] [facility] [employer] ([facility]) Myeloid Malignancy Panel Specimen Bone Marrow 03/28/2024 2:06 PM [employer] [facility] [employer] ([facility]) EER Myeloid Malignancy See Note 03/28/2024 2:06 PM [employer] [facility] [employer] ([facility]) Comment: Authorized individuals can access the [facility] Enhanced Report using the following link: [email or web address] Performed By: [facility] [employer] [address] [place] [address] Sap Crm Developer: Uche Morley MD, PhD CLIA Number: [id number] Other BONE MARROW SPECIMEN / Unknown Collection / Unknown 03/15/2024 9:05 AM [employer] 03/15/2024 9:30 AM [employer] Rodo Perez MD LAB - PATHOLOG Y/CYTOLOGY ORDERABLES [facility] [employer] ([facility]) [address] [place] [address], [facility] * LAB MISC TEST (NOT BLOOD) (03/15/2024 9:05 AM [employer]) Only the most recent of3 resultswithin the time period is included. Test Name Tp53 03/21/2024 12:06 PM [employer] [facility] REF LAB NON INTERF Test Result See Scanned Report 03/21/2024 12:06 PM [employer] [facility] REF LAB NON INTERF Comment Ref Lab 03/21/2024 12:06 PM [employer] [facility] REF LAB NON INTERF Other BONE MARROW SPECIMEN / Unknown Collection / Unknown 03/15/2024 9:05 AM [employer] 03/15/2024 9:30 AM [employer] Rodo Perez MD LAB - BODY FLU ID ORDERABLES [facility] REF LAB NON INTERF [address] [place] [address], [facility] [phone] * FISH PML/DANTE PANEL (03/15/2024 9:05 AM [employer]) Only the most recent of2 resultswithin the time period is included. Pathologist [facility] EER PML/DANTE Translocation by Fish See Note 03/17/2024 4:41 PM [employer] ([facility]) Comment: Authorized individuals can access the [facility] Enhanced Report using the following link: [email or web address] Performed By: [facility] [address] [place] [address] Sap Crm Developer: Uche Morley MD, PhD CLIA Number: [id number] PML/DANTE Translocation by FISH See Note 03/17/2024 4:41 PM [facility] ([facility]) Comment: Test Performed: PML-DANTE Translocation by [...] reviewed and approved by Nabila Gonzalez, PhD, [facility] A portion of this analysis was performed at the following location(s): [facility] Site [place]#2 INTERPRETIVE INFORMATION: PML/DANTE Translocation by FISH This test was developed and its performance characteristics determined by [facility]. It has not been cleared or approved by the US Food and Drug Administration. This test was performed in a CLIA certified laboratory and is intended for clinical purposes. Other BONE MARROW SPECIMEN / Unknown Collection / Unknown 03/15/2024 9:05 AM [employer] 03/15/2024 9:30 AM [employer] Rodo Perez MD LAB - PATHOLOG Y/CYTOLOGY ORDERABLES [facility]) [address] [place] [id number] * CHROMOSOME ANALYSIS BONE MARROW PANEL (03/15/2024 9:05 AM [employer]) Chromosome Analysis Bone Marrow See Note Normal 03/22/2024 11:01 AM [employer] ([facility]) Comment: Test Performed: Chromosome Analysis Specimen [...] PML performed under [facility] accession [id number] was NORMAL. FISHAML and FISH MDS P are PENDING and will be reported under [facility] accessions [id number] and [id number]. This result has been reviewed and approved by Randall Yun, PhD, [facility] A portion of this analysis was performed at the following location(s): [facility] [place]2 [facility] [place]3 [facility] [place]4 [facility]1 INTERPRETIVE INFORMATION: Chromosome Analysis, Bone Marrow This test was developed and its performance characteristics determined by [facility]. It has not been cleared or approved by the US Food and Drug Administration. This test was performed in a CLIA certified laboratory and is intended for clinical purposes. EER Chromosome Analysis Bone Marrow See Note 03/22/2024 11:01 AM [employer] [facility] [employer] ([facility]) Comment: Authorized individuals can access the [facility] Enhanced Report using the following link: [email or web address] Performed By: [facility] [address] [place] [address] [employer] Crm Developer: Uche Morley MD, PhD CLIA Number: [id number] Bone marrow BONE MARROW SPECIMEN / Unknown 03/15/2024 9:05 AM [employer] 03/15/2024 9:30 AM [employer] Rodo Perez MD LAB - PATHOLOG Y/CYTOLOGY ORDERABLES [facility]) [address] [place] [address], [facility] * FLOW CYTOMETRY BLOOD PROFILE (03/14/2024 10:32 AM [employer]) Case Report Flow Cytometry ?Case: [id number] ? Authorizing Provider: ??Ghanshyam Dewey PA-C ? Collected: ? 03/14/2024 10:32 AM ? Ordering Location: ? [facility] 7N ACUTE ? Received: ?03/14/2024 01:49 PM ? Pathologist: ? Angeles Rosado MD ? Specimen: ?Blood ? 03/14/2024 4:58 PM [facility] Final Diagnosis Peripheral blood, flow [...] specimen has been reviewed for quality assurance monitor purposes. 03/14/2024 4:58 PM [facility] Reason for test MDS (myelodysplastic syndrome) (HCC) 238.75 03/14/2024 4:58 PM [facility] Client Specimen ID # [id number] 03/14/2024 4:58 PM [facility] Pathologist Location at [facility] 03/14/2024 4:58 PM [facility] Disclaimer Test performed at [facility], [address] [place] [address], [id number]. *The established laboratory minimum viability is 70%. [...] A-14 Flow CD56 A-15 Flow CD64 A-9 Choctaw+CD19+ A-10 Lambda+CD19+ A-19 Flow HLA-DR 03/14/2024 4:58 PM [facility] Blood BLOOD SPECIMEN / Unknown Lab Venipuncture / Unknown 03/14/2024 10:32 AM [employer] [employer] 03/14/2024 1:49 PM [employer] Ghanshyam Dewey PA-C LAB - PATHOLOGY/CYTO LOGY ORDERABLES [facility] [address] [place] [address], [facility] [phone] * CYTOMEGALOVIRUS (CMV) QUANTITATIVE PLASMA (03/13/2024 11:26 PM [employer]) CMV Quant by PCR, Interp Not detected Not detected 03/14/2024 9:00 AM [employer]ENCE LIFE [facility] MICROBIOLOGY Blood BLOOD SPECIMEN / Unknown Venipuncture / Unknown 03/13/2024 11:26 PM [employer] 03/13/2024 11:37 PM [employer] Narrative [facility] MICROBIOLOGY - 03/14/2024 9:00 AM [employer]ENCE LIFE The Cytomegalovirus (CMV) DNA analysis utilized a [...] Soler MD LAB - CHEMISTRY OR DERABLES [facility] MICROBIOLOGY [address] [place] [address], [facility] [phone] * QUINN-TOVAR VIRUS QUANT BLOOD STL (03/13/2024 11:26 PM [employer]) [facility] EBV Quant by PCR, Interp Not detected Not detected 03/14/2024 8:56 AM [facility] MICROBIOLOGY Specimen Type Plasma 03/14/2024 8:56 AM [facility] Blood BLOOD SPECIMEN / Unknown Venipuncture / Unknown 03/13/2024 11:26 PM [employer] 03/13/2024 11:37 PM [employer] Narrative [facility] MICROBIOLOG[facility] - 03/14/2024 8:56 AM [employer]ENCE LIFE The Quinn-Tovar viral (EBV) DNA analysis utilized [...] Soler MD LAB - CHEMISTRY OR DERABLES [facility] MICROBIOLOGY [address] [place], [address] [phone] * D-DIMER (03/13/2024 11:26 PM [employer]) [facility] D-Dimer Quantitative <0.27 <=0.50 mcg/mL FEU 03/14/2024 12:00 AM [facility] Comment: In the absence of [...] = Non applicable Reference: Br. J. Haematol. 145:24-33,2008. Blood BLOOD SPECIMEN / Unknown Venipuncture / Unknown 03/13/2024 11:26 PM [employer] 03/13/2024 11:37 PM [employer] Ted Soler MD LAB - COAGULATION ORDERABLES [address] [address], [place] [phone] * FIBRINOGEN ACTIVITY (03/13/2024 11:26 PM [employer]) Fibrinogen Clauss 362 200 - 400 mg/dL 03/13/2024 11:59 PM [employer] OF RES[employer]ENCE LIFE [facility] Blood BLOOD SPECIMEN / Unknown Venipuncture / Unknown 03/13/2024 11:26 PM [employer] 03/13/2024 11:37 PM [employer] Ted Soler MD LAB - COAGULATION ORDERABLES [address] [address], [place] [phone] * FISH AML+MDS PANEL BLOOD OR BONE MARROW (03/04/2024 4:13 PM [employer]) [facility] FISH AML with MDS, Therapy-Rltd AML See Note Normal 03/19/2024 4:32 PM [employer]IDENCE LIFE [employer] ([facility]) Comment: Test Performed: Acute Myelogenous Leukemia [...] with the Therapy-Related AML panel probes D5S23/EGR1, D7Z1/Y1N017, and MLL (KMT2A) (Bebo). A total of 200 cells were scored for each probe. Cytogenomic Nomenclature (ISCN): nuc nereyda(D5S23,EGR1,D7Z1,Z6S913,KMT2A)x2[200' This result has been reviewed and approved by Charles Pablo MD, [facility] INTERPRETIVE INFORMATION: AML with MDS, Therapy-Related AML, FISH This test was developed and its performance characteristics determined by [facility]. It has not been cleared or approved by the US Food and Drug Administration. This test was performed in a CLIA certified laboratory and is intended for clinical purposes. EER AML with MDS, Therapy-Rltd AML FISH See Note 03/19/2024 4:32 PM [employer]ENCE LIFE [facility] ([facility]) Comment: Authorized individuals can access the Edictive Enhanced Report using the following link: [email or web address] Performed By: [facility] [employer] [address] [place] [address] Sap Crm Developer: Uche Morley MD, PhD CLIA Number: [id number] Other BLOOD SPECIMEN / Unknown Collection / Unknown 03/04/2024 4:13 PM [employer] 03/04/2024 4:23 PM [employer] Cindy Garcia MD LAB - PATHOLOGY/CYTO LOGY ORDERABLES [facility] ([facility]) [address] [place] [address], [facility] * HLA TYPING LOW/HIGH RESOLUTION DPB1 (03/04/2024 4:13 PM [employer]) Typ DNA LR DPB1 Allele #1 *04 04/29/2024 2:56 PM [employer] OF [employer]ENCE LIFE [facility] ([facility]) Typ DNA LR DPB1 Allele #2 *11 04/29/2024 2:56 PM [employer]ENCE LIFE [facility] ([facility]) Typ DNA HR DPB1 Allele #1 *04:01:01G 04/29/2024 2:56 PM [employer] [facility] ([facility]) Typ DNA HR DPB1 Allele #2 *11:01:01G 04/29/2024 2:56 PM [employer] [facility] ([facility]) Test Methodology RTPCR/NGS 04/29/19 2:56 PM [employer]ENCE LIFE [facility] ([facility]) Date Results Entered [id number] 04/29/2024 2:56 PM [employer]ENCE LIFE [facility] ([facility]) Comment: Methodology - Next Generation Sequencing ?? This test was developed and its performance characteristics determined by ?? the [facility]. ??It has not been cleared or [...] complexity ?? clinical laboratory testing. ??CLIA ID# [id number] ?? Performed at: [facility], [address] ?? [place], [place] ?? [address] ?? Litigation Paralegal: Sandeep Jerry, Ph.D., D([facility]), Blood BLOOD SPECIMEN / Unknown Lab Venipuncture / Unknown 03/04/2024 4:13 PM [employer] 03/05/2024 9:56 AM [employer] Cindy Garcia MD LAB - BLOOD BANK ORD ERABLES [facility] ([facility]) [address] * HLA TYPING DNA LOW RESOLUTION DR,DQ (03/04/2024 4:13 PM DIRECTOR [employer]) DR DQ Low Resolution DRB1-1 *07 04/29/2024 2:56 PM [facility] [employer]ENCE LIFE [facility] ([facility]) DR DQ Low Resolution DQB1-1 *02 04/29/2024 2:56 PM [facility] [employer] [facility] ([facility]) DR DQ Low Resolution DRB3-1 Negative 04/29/2024 2:56 PM [facility] [employer] [facility] ([facility]) DR DQ Low Resolution DRB3-2 Negative 04/29/2024 2:56 PM [employer] [employer] [facility] ([facility]) DR DQ Low Resolution DRB4-1 *01 04/29/2024 2:56 PM [facility] [employer] [facility] ([facility]) DR DQ Low Resolution DRB4-2 Negative 04/29/2024 2:56 PM [employer] [employer] [facility] ([facility]) DR DQ Low Resolution DRB5-1 Negative 04/29/2024 2:56 PM [facility] [employer] [facility] ([facility]) DR DQ Low Resolution DRB5-2 Negative 04/29/2024 2:56 PM [facility] [employer] [facility] ([facility]) DR DQ Low Resolution Methodology Real Time PCR 04/29/2024 2:56 PM [employer] [facility] ([facility]) DR DQ Low Resolution test date [id number] 04/29/2024 2:56 PM [employer] [employer] [facility] ([facility]) Comment: Methodology - Real-Time PCR ?? This test was developed and its performance characteristics determined by ?? the [facility]. ??It has not been cleared or [...] complexity ?? clinical laboratory testing. ??CLIA ID# [id number] ?? Performed at: [facility], [address] [place] [address] ?? [place], [place] ??[address] ?? Litigation Paralegal: Sandeep Jerry, Ph.D., D([facility]), Blood BLOOD SPECIMEN / Unknown Lab Venipuncture / Unknown 03/04/2024 4:13 PM [employer] 03/05/2024 9:56 AM [employer] Cindy Garcia MD LAB - BLOOD BANK ORD ERABLES Performing Organization Address City/State/[facility] Co de Phone Number [facility] ([facility]) [address] * HLA TYPING DNA LOW RESOLUTION A,B,C (03/04/2024 4:13 PM [employer]) ABC DNA A1 *02 04/29/2024 2:56 PM [employer] [facility] ([facility]) ABC DNA A2 *30 04/29/2024 2:56 PM [employer] [facility] ([facility]) ABC DNA B1 *13 04/29/2024 2:56 PM [employer] [facility] ([facility]) ABC DNA B2 *44 04/29/2024 2:56 PM [employer] [facility] ([facility]) ABC DNA BW1 4 04/29/2024 2:56 PM [employer] LIFE [facility] ([facility]) ABC DNA BW2 4 04/29/2024 2:56 PM [employer] LIFE [facility] ([facility]) ABC DNA C1 *06 04/29/2024 2:56 PM [employer] LIFE [facility] ([facility]) ABC DNA C2 *16 04/29/2024 2:56 PM [employer] LIFE [facility] ([facility]) ABC DNA Methodology Real Time PCR 04/29/2024 2:56 PM [employer]ENCE LIFE [facility] ([facility]) ABC DNA Test Date [id number] 2:56 PM DIRECT[employer] OF [employer]ENCE LIFE [facility] ([facility]) Comment: Methodology - Real-Time PCR ?? This test was developed and its performance characteristics determined by ?? the [facility]. ??It has not been cleared or approved by the ?? U.S. Food and Drug Administration. ??The FDA has determined that such ?? clearance or approval is not necessary. ??This test is used for clinical ?? purposes. ??It should not be regarded as investigational or for research. ?? This laboratory is certified under the Clinical Laboratory Improvement ?? Amendments of 1987 (CLIA-88) as qualified to perform high complexity ?? clinical laboratory testing. ??CLIA ID# [id number] ?? Performed at: [facility], [address] [place] [address] ?? [place], [place] ??[address] ?? Litigation Paralegal: Sandeep Jerry, Ph.D., D([facility]), Blood BLOOD SPECIMEN / Unknown Lab Venipuncture / Unknown 03/04/2024 4:13 PM [employer] 03/05/2024 9:56 AM [employer] Cindy Garcia MD LAB - BLOOD BANK ORD ERABLES [facility] ([facility]) [address] * HLA TYPING DNA HIGH RESOLUTION DR (03/04/2024 4:13 PM [employer]) Blood BLOOD SPECIMEN / Unknown Lab Venipuncture / Unknown 03/04/2024 4:13 PM [employer] 03/05/2024 9:56 AM [employer] Narrative [facility] ([facility]) - 04/29/2024 4:00 PM [employer] See Scanned Report Cindy Garcia MD LAB - BLOOD BANK ORD ERABLES Performing Organization Address City/[facility]/ZIP Co de Phone Number [facility] ([email or web address]) [address] * HLA TYPING DNA HIGH RESOLUTION DQ (03/04/2024 4:13 PM [employer]) Blood BLOOD SPECIMEN / Unknown Lab Venipuncture / Unknown 03/04/2024 4:13 PM [employer] 03/05/2024 9:56 AM [employer] Narrative [facility] ([email or web address]) - 04/29/2024 4:00 PM [employer] See Scanned Report Cindy Garcia MD LAB - BLOOD BANK ORD ERABLES Performing Organization Address [facility] Co de Phone Number [facility] ([email or web address]) [facility] [address] * HLA TYPING DNA HIGH RESOLUTION B (03/04/2024 4:13 PM [employer]) Blood BLOOD SPECIMEN / Unknown Lab Venipuncture / Unknown 03/04/2024 4:13 PM [employer] 03/05/2024 9:56 AM [employer] Narrative [facility] ([email or web address]) - 04/29/2024 4:00 PM [employer] See Scanned Report Cindy Garcia MD LAB - BLOOD BANK ORD ERABLES Performing Organization Address [facility] Co de Phone Number [facility] ([facility]) [facility] [address] * HLA TYPING DNA HIGH RESOLUTION A (03/04/2024 4:13 PM [employer]) Blood BLOOD SPECIMEN / Unknown Lab Venipuncture / Unknown 03/04/2024 4:13 PM [employer] 03/05/2024 9:56 AM [employer] Narrative [facility] ([facility]) - 04/29/2024 4:01 PM [employer] See Scanned Report Cindy Garcia MD LAB - BLOOD BANK ORD ERABLES [facility] ([facility]) [address] * HLA TYPING DNA HIGH RESOLUTION C (03/04/2024 4:13 PM [employer]) Blood BLOOD SPECIMEN / Unknown Lab Venipuncture / Unknown 03/04/2024 4:13 PM [employer] 03/05/2024 9:56 AM [employer] Narrative [facility] ([facility]) - 04/29/2024 4:01 PM [employer] LIFE See Scanned Report Cindy Garcia MD LAB - BLOOD BANK ORD ERABLES [facility] ([facility] [address] * CHROMOSOME ANALYSIS LEUKEMIA BLD (03/04/2024 4:13 PM [employer]) [facility] Chromosome Analysis Leukemic Blood See Note Normal 03/23/2024 12:39 PM [employer] OF [employer] LIFE [facility] ([facility]) Comment: Test Performed: Chromosome Analysis Specimen [...] MDS performed under [facility] accessions [id number] and [id number] were NORMAL. This result has been reviewed and approved by Margaret Roberson, PhD, [facility] INTERPRETIVE INFORMATION: Chromosome Analysis, ?Leukemic Blood This test was developed and its performance characteristics determined by [facility]. It has not been cleared or approved by the US Food and Drug Administration. This test was performed in a CLIA certified laboratory and is intended for clinical purposes. EER Chromosome Analysis Leukemic See Note 03/23/2024 12:39 PM [employer]ENCE LIFE [facility] [employer] ([facility]) Comment: Authorized individuals can access the [facility] Enhanced Report using the following link: [email or web address] Performed By: [facility] [address] [place] [address] Sap Crm Developer: Uche Morley MD, PhD CLIA Number: [id number] Blood BLOOD SPECIMEN / Unknown Lab Venipuncture / Unknown 03/04/2024 4:13 PM [employer] 03/22/2024 5:28 PM [employer] Cindy Garcia MD LAB - PATHOLOGY/CYTO LOGY ORDERABLES [facility] [employer] [facility]) [address] [place] [address], [facility] * HIV-1 HIV-2 ANTIBODY + HIV P24 AG PANEL (New on 08/24) (03/04/2024 4:13 PM [employer]) HIV Antigen/Antibod y 1 & 2 Non-reacti ve Non-react carlos 03/04/2024 5:12 PM DIRECT[employer] OF [employer]IDENCE LIFE [facility] Comment:No Laboratory eviden ce of HIV infection. Blood BLOOD SPECIMEN / Unknown Lab Venipuncture / Unknown 03/04/2024 4:13 PM [employer] 03/04/2024 4:23 PM [employer] LIFE Cindy Garcia MD LAB - CHEMISTRY CHELI MONREAL [facility] Organization Address City/State/ZIP Co de Phone Number [facility] [address] [place] [phone], [facility] [phone] * BCR-ABL1 CML+AML PCR QUANT PNL (03/04/2024 4:13 PM [employer]) Interpretation TNP 03/13/2024 5:08 PM DIRECTOR OF RESIDENCE LIFE [facility] ([facility]) Comment: Unable to obtain results. Repeated efforts to analyze this specimen have been unsuccessful. LOW CONTROL GENE COPY NUMBER INDICATED SPECIMEN DEGRADATION. Director Review Comment 5:08 PM DIRECT[employer] OF [employer]ENCE LIFE [facility] ([facility]) Comment: Dawood Sarabia, PhD, [facility] ?Director, Molecular Oncology ?[facility] ?[place] [address] ? Background Comment 03/13/2024 5:08 PM DIRECT[employer] OF [employer] LIFE [facility] ([facility]) Comment: This assay can detect three [...] as indicated. Methodology Comment 03/13/2024 5:08 PM DIRECT[employer] OF [employer]IDENCE LIFE [facility] ([facility]) Comment: Total RNA is isolated from [...] developed and its performance characteristics determined by [facility]. It has not been cleared or approved by the Food and Drug Administration. Blood BLOOD SPECIMEN / Unknown Lab Venipuncture / Unknown 03/04/2024 4:13 PM [employer] 03/04/2024 4:24 PM [employer] LIFE Narrative [facility] ([facility]) - 03/13/2024 5:08 PM [employer] LIFE Performed at: ??01 - [facility] [address] [place], [place] ??[id number] Litigation Paralegal: Cinthya [facility], Phone: ??[phone] Performed at: ??02 - [facility] [address] [place], [place] ??[id number] Litigation Paralegal: Cinthya [facility], Phone: ??[phone] Cindy Garcia MD LAB - CHEMISTRY CHELI MONREAL Performing Organization Address City/[facility]/ZIP Co de Phone Number [facility] ([facility]) [address] [phone] * TSH REFLEX FREE T4 (03/04/2024 4:13 PM [employer]) [facility] TSH 0.961 0.350 - 4.940 uIU/mL 03/04/2024 5:29 PM DIRECTOR OF RESIDENCE LIFE [facility] Blood BLOOD SPECIMEN / Unknown Lab Venipuncture / Unknown 03/04/2024 4:13 PM [employer] 03/04/2024 4:27 PM [employer] LIFE Cindy Garcia MD LAB - CHEMISTRY CHELI MONREAL [address] [address], [facility] [phone] * RHEUMATOID FACTOR BLOOD QUANTITATIVE (03/04/2024 4:13 PM DIRECTOR [employer] LIFE) [facility] Rheumatoid Factor <15 <30 IU/mL 03/04/2024 4:57 PM DIRECT[employer] OF RESIDENCE LIFE [facility] Rheumatoid Factor Screen Negative Negative 03/04/2024 4:57 PM DIRECTOR OF RESIDENCE LIFE [facility] Blood BLOOD SPECIMEN / Unknown Lab Venipuncture / Unknown 03/04/2024 4:13 PM [employer] 03/04/2024 4:23 PM [employer] Cindy Garcia MD LAB - CHEMISTRY CHELI MONREAL [facility] Organization Address City/State/ZIP Co de Phone Number [address] [address], [facility] [phone] * CYTOMEGALOVIRUS ANTIBODY IGG BLOOD (03/04/2024 4:13 PM [employer]) Cytomegalovirus Antibody IgG <0.20 <=0.70 U/mL 03/05/2024 9:27 PM DIRECT[employer]ENCE LIFE [facility] ([facility]) Comment: INTERPRETIVE INFORMATION: Cytomegalovirus Antibody, IgG [...] laboratory at the same time. Performed By: [facility] [address] [place] [id number] Sap Crm Developer: Uche Morley MD, PhD CLIA Number: [id number] Blood BLOOD SPECIMEN / Unknown Lab Venipuncture / Unknown 03/04/2024 4:13 PM [employer] 03/04/2024 4:23 PM [employer] LIFE Cindy Garcia MD LAB - CHEMISTRY CHELI MONREAL [facility]) [address] * C-REACTIVE PROTEIN (03/04/2024 4:13 PM DIRECTOR OF [employer] LIFE) Pathologist [facility] C-Reactive Protein 0.5 <=0.5 mg/dL 03/04/2024 4:56 PM DIRECTOR OF RESIDENCE LIFE [facility] Blood BLOOD SPECIMEN / Unknown Lab Venipuncture / Unknown 03/04/2024 4:13 PM [employer] 03/04/2024 4:27 PM [employer] LIFE Cindy Garcia MD LAB - CHEMISTRY CHELI MONREAL Performing Organization Address City/[facility]/ZIP Co de Phone Number [place] [phone], [facility] [phone] * MARLINE BLOOD SCREEN W/REFLEX TITER (03/04/2024 4:13 PM DIRECTOR [employer] LIFE) Pathologist [facility] MARLINE IgG None Detected None Detected 03/05/2024 11:42 PM DIRECTOR OF RESIDENCE LIFE [facility] ([facility]) Comment: If suspicion of connective tissue disease is strong and MARLINE EIA is negative, consider testing for MARLINE by IFA ([id number]). INTERPRETIVE INFORMATION: Anti-Nuclear Antibodies (MARLINE), IgG by TOÑA Antinuclear Antibodies (MARLINE), IgG by TOÑA: MARLINE specimens are screened using enzyme-linked immunosorbent assay (TOÑA) methodology. All TOÑA results reported as Detected are further tested by indirect fluorescent assay (IFA) using HEp-2 substrate with an IgG-specific conjugate. The MARLINE TOÑA screen is designed to detect antibodies against dsDNA, histones, SS-A (Ro), SS-B (La), Pimentel, Pimentel/EVENT MARKETING INTERN, Scl-70, Mey-1, centromeric proteins, other antigens extracted from the HEp-2 cell nucleus. MARLINE TOÑA assays have been reported to have lower sensitivities than MARLINE IFA for systemic autoimmune rheumatic diseases (SARD). Negative results do not necessarily rule out SARD. Performed By: [facility] [address] [place] [address] Sap Crm Developer: Uche Morley MD, PhD CLIA Number: [id number] Blood BLOOD SPECIMEN / Unknown Lab Venipuncture / Unknown 03/04/2024 4:13 PM [employer] 03/04/2024 4:23 PM [employer] Cindy Garcia MD LAB - CHEMISTRY CHELI MONREAL Performing Organization Address [facility] de Phone Number [facility] [employer] [facility]) [address] * ZINC BLOOD (03/04/2024 4:13 PM DIRECTOR [employer]) [facility] Signature Zinc 62.4 60.0 - 120.0 ug/dL 03/06/2024 6:35 AM DIRECTOR OF RES[employer]ENCE LIFE [facility] [employer] ([facility]) Comment: INTERPRETIVE INFORMATION: Zinc, Serum or [...] developed and its performance characteristics determined by [facility]. It has not been cleared or approved by the US Food and Drug Administration. This test was performed in a CLIA certified laboratory and is intended for clinical purposes. Performed By: [facility] [address] [place] [address] Sap Crm Developer: Uche Morley MD, PhD CLIA Number: [id number] Blood BLOOD SPECIMEN / Unknown Lab Venipuncture / Unknown 03/04/2024 4:13 PM [employer] 03/04/2024 4:23 PM [employer] Cindy Garcia MD LAB - CHEMISTRY CHELI MONREAL Performing Organization Address [facility] Co de Phone Number [employer] [facility]) [address] * COPPER BLOOD (03/04/2024 4:13 PM DIRECTOR OF RESIDENCE LIFE) Copper 108.5 70.0 - 140.0 ug/dL 03/06/2024 6:35 AM DIRECTOR OF RESIDENCE LIFE [facility]) Comment: INTERPRETIVE INFORMATION: Copper, Serum or [...] performance characteristics determined by [facility] [employer]. It has not been cleared or approved by the [place] Food and Drug Administration. This test was performed in a CLIA certified laboratory and is intended for clinical purposes. Performed By: [place] [address] Sap Crm Developer: Uche Morley MD, PhD CLIA Number: [id number] Blood BLOOD SPECIMEN / Unknown Lab Venipuncture / Unknown 03/04/2024 4:13 PM [employer] 03/04/2024 4:23 PM [employer] Cindy Garcia MD LAB - CHEMISTRY ORDE JOCELIN Performing Organization Address City/[facility]/ZIP Co de Phone Number [facility]) [address] [place] [address] * ERYTHROCYTE SEDIMENTATION RATE (03/04/2024 4:13 PM [employer]) Erythrocyte Sedimentation Rate Westergren 14 0 - 20 MM/HR 03/04/2024 5:10 PM DIRECTOR OF RESIDENCE LIFE [facility] Blood BLOOD SPECIMEN / Unknown Lab Venipuncture / Unknown 03/04/2024 4:13 PM [employer] 03/04/2024 4:27 PM [employer] Cindy Garcia MD LAB - HEMATOLOGY ORD ERABLES [facility] [address] [address], [place] [phone] * HEPATITIS B SURFACE ANTIBODY (03/04/2024 4:13 PM DIRECTOR [employer]) Pathologist [facility] Hepatitis B Virus Surface Antibody Non-react carlos Non-react carlos 03/04/2024 5:12 PM DIRECTOR OF RESIDENCE LIFE [facility] Comment: < 8 mIU/mL Hepatitis B surface Antibody (HBsAb). Nonreactive for HBsAb - individual is considered not immune to Hepatitis B Virus infection. Hepatitis B Surface Antibody Quantitative 0.3 <8.0 mIU/mL 03/04/2024 5:12 PM DIRECTOR OF RESIDENCE LIFE [facility] Comment: Hepatitis B Surface Antibody Numeric Result Interpretation: ? Nonreactive: ?<8.0 mIU/mL ? Indeterminate: ??8.0 - 12.0 mIU/mL ? Reactive: ?>12.0 mIU/mL ? Blood BLOOD SPECIMEN / Unknown Lab Venipuncture / Unknown 03/04/2024 4:13 PM [employer] 03/04/2024 4:23 PM DIRECTOR [employer] LIFE Cindy Garcia MD LAB - CHEMISTRY CHELI MONREAL [address] [address], [facility] [phone] * HEPATITIS B CORE ANTIBODY TOTAL (03/04/2024 4:13 PM DIRECTOR [employer]) [facility] HBc Antibody Total Non-reacti ve Non-reacti ve 03/04/2024 5:12 PM DIRECTOR OF RESIDENCE LIFE [facility] Blood BLOOD SPECIMEN / Unknown Lab Venipuncture / Unknown 03/04/2024 4:13 PM [employer] 03/04/2024 4:23 PM [employer] Cindy Garcia MD LAB - CHEMISTRY CHELI MONREAL [address] [address], [place] [phone] * FOLATE (03/04/2024 4:13 PM [employer]) Folate 17.7 7.0 - 31.4 ng/mL 03/04/2024 5:29 PM DIRECTOR OF [employer]ENCE LIFE [facility] Blood BLOOD SPECIMEN / Unknown Lab Venipuncture / Unknown 03/04/2024 4:13 PM [employer] 03/04/2024 4:27 PM DIRECTOR [employer] Cindy Garcia MD LAB - CHEMISTRY CHELI MONREAL [facility] [address] [place] [address], [place] [phone] * VITAMIN B12 (03/04/2024 4:13 PM [employer]) Vitamin B12 524 213 - 816 pg/mL 03/04/2024 5:29 PM DIRECTOR OF RESIDENCE LIFE [facility] Blood BLOOD SPECIMEN / Unknown Lab Venipuncture / Unknown 03/04/2024 4:13 PM [employer] 03/04/2024 4:27 PM DIRECT[employer] Cindy Garcia MD LAB - CHEMISTRY CHELI MONREAL [address] [address], [place] [phone] * (ABNORMAL) IRON + TRANSFERRIN PANEL [w/Transferrin Sat % + TIBC] (03/04/2024 4:13 PM [employer]) Iron 31(L) 50 - 175 ug/dL 03/04/2024 4:53 PM [facility] Transferrin 257 174 - 382 mg/dL 03/04/2024 4:53 PM [facility] Transferrin Saturation % 10(L) 16 - 50 % 03/04/2024 4:53 PM [facility] TIBC Calculated 321 240 - 450 ug/dL 03/04/2024 4:53 PM DIRECTOR [employer] LIFE [facility] Blood BLOOD SPECIMEN / Unknown Lab Venipuncture / Unknown 03/04/2024 4:13 PM [employer] 03/04/2024 4:23 PM DIRECT[employer] LIFE Cindy Garcia MD LAB - CHEMISTRY CHELI MONREAL [address] [address], [facility] [phone] * HEPATITIS C ANTIBODY (03/04/2024 4:13 PM DIRECT[employer]) Pathologist [facility] Hepatitis C Antibody Non-react carlos Non-reac tive 03/04/2024 5:12 PM DIRECT[employer]ENCE LIFE [facility] Comment:Hepatitis C Antibody screen indicates no serologic evidence of past or current infection with Hepatitis C Virus. Patients with unexplained liver disease who are immunocompromised or suspected of having acute Hepatitis C infection may benefit from Nucleic Acid Test (YUSRA) for Hepatitis C Viral RNA to confirm Hepatitis C status. Blood BLOOD SPECIMEN / Unknown Lab Venipuncture / Unknown 03/04/2024 4:13 PM [employer] 03/04/2024 4:23 PM [employer] Cindy Garcia MD LAB - CHEMISTRY CHELI MONREAL Performing Organization Address City/[facility] Co de Phone Number [address] [address], [facility] [phone] * (ABNORMAL) FERRITIN (03/04/2024 4:13 PM DIRECT[employer]) [facility] Ferritin 21(L) 22 - 275 ng/mL 03/04/2024 5:12 PM DIRECT[employer]ENCE LIFE [facility] Blood BLOOD SPECIMEN / Unknown Lab Venipuncture / Unknown 03/04/2024 4:13 PM [employer] 03/04/2024 4:23 PM [employer] Cindy Garcia MD LAB - CHEMISTRY CHELI MONREAL [address] [address], [place] [phone] from Last 3 Months Advance Directives * Full Code (Latest Code Status on File) Date Activated Date Inactivated Comments 03/13/2024 9:41 PM 03/23/2024 2:56 PM Care Teams Energy Broker Relationship Specialty Start Date End Date Timothy Banks MD [address] [place] [phone] PCP - General 10/19/18 Cindy Garcia MD [address] [place] [address] Canine Deputy/Oncologis t Hematology and Oncology 03/24/24
--- OUTSIDE RECORDS SUMMARY | 2024-05-06 12:15 | XMS_ITS | Encounter Summary ---
Author Organization [facility] Address [address] [place] [address] Care Team Providers Care Special Client Bus Driver Name Role Phone Timothy Banks MD Primary Care Provider [phone] Cindy Garcia MD Unavailable Encounter Details Date Type Department Care Team (Late st Contact Info) Description 02/13/[address] [facility] - Pathology Lab [address] [place] [address] Rommel Dinh MD [address] [address] Illness, unspecified Social History Tobacco Use Types Packs/Day Years Used Date Smoking Tobacco: Never Assessed Sex and Gender Information Value Date Recorded Sex Assigned at Male 03/05/2024 8:04 AM PHOTO GRAPHICS LIBRARIAN Gender Identity Male 03/05/2024 8:04 AM PHOTO GRAPHICS LIBRARIAN Sexual Orientation Straight 03/05/2024 8: 04 AM PHOTO GRAPHICS LIBRARIAN documented as of this encounter Plan of Treatment Upcoming Encounters Date Type Department Care Team (Late st Contact Info) Description 05/15/2024 1:30 PM PHOTO GRAPHICS LIBRARIAN Appointment [facility] [address] [place] [address] Cindy Garcia MD [address] [place], [place] [phone] 05/16/2024 9:00 AM PHOTO GRAPHICS LIBRARIAN Appointment [facility] [address] [place] [address] 05/16/2024 9:40 AM PHOTO GRAPHICS LIBRARIAN Office Visit [facility] - Hematology/Oncology [address] [place] [phone] Stephanie Connolly, FIRE CONTROL MECHANIC-EGG SORTER [address] [place] [phone] 05/17/2024 9:00 AM PHOTO GRAPHICS LIBRARIAN Appointment [facility] [address] [place] [phone] 05/20/2024 9:30 AM PHOTO GRAPHICS LIBRARIAN Appointment [facility] [address] [place] [phone] 05/21/2024 9:00 AM PHOTO GRAPHICS LIBRARIAN Appointment [facility] [address] [place] [phone] 05/22/2024 9:30 AM PHOTO GRAPHICS LIBRARIAN Appointment [facility] [address] [place] [phone] 06/13/2024 9:00 AM PHOTO GRAPHICS LIBRARIAN Appointment [facility] [address] [place] [address] 06/14/2024 9:00 AM PHOTO GRAPHICS LIBRARIAN Appointment [facility] [address] [place] [phone] 06/17/2024 9:20 AM CDT Appointment [facility] [address] [place] [phone] 06/18/2024 9:20 AM CDT Appointment [facility] [address] [place] [phone] 06/19/2024 9:00 AM CDT Appointment [facility] [address] [place] [phone] documented as of this encounter Procedures Procedure Name Priority Date/Time Associated Diagnosis Comments BONE MARROW BIOPSY (STL) Routine 02/12/2024 9:20 AM PHOTO GRAPHICS LIBRARIAN Illness, unspecified documented in this encounter Results * BONE MARROW BIOPSY (STL) (02/12/2024 9:20 AM PHOTO GRAPHICS LIBRARIAN) Case Report Bone Marrow Patholog y Report ?Case: [id number] ? Authorizing Provider: ??Rommel Dinh ? Collected: ? 02/12/2024 09:20 AM ? Luke, ? Ordering Location: ? [facility] - ??Received: ?02/13/2024 12:34 PM ? Pathology Lab ? Pathologist: ? Daniela Bronson, MD ? Specimens: ?? A) - Bone Marrow Clot ? B) - Bone Marrow Core ? 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 02/14/2024 1:43 PM [facility] Peripheral Smear Description [...] including numerous giant platelets. 02/14/2024 1:43 PM [facility] Bone Marrow Aspirate [...] stain): no ring sideroblasts. 02/14/2024 1:43 PM [facility] Bone Marrow Core [...] similar to core biopsy. 02/14/2024 1:43 PM [facility] Flow Cytometry Summary Flow cytometry identified 35% myeloblasts and no diagnostic immunophenotypic evidence of monoclonal B-cells, an aberrant T-cell population, or plasma cell neoplasm ([id number]). 02/14/2024 1:43 PM [facility] Clinical History Chronic leukopenia 02/14/2024 1:43 PM [facility] Materials Received Received are 19 slide(s) and 3 blocks labeled [id number] along with a copy of the outside pathology report. [place] [address]. All original materials are returned to the referring institution, along with a copy of our final report. 02/14/2024 1:43 PM [facility] Microscopic Description CD34 [...] sections reveal absent stores. 02/14/2024 1:43 PM [facility] Pathologist Location at [facility] 02/14/2024 1:43 PM [facility] Disclaimer The performance characteristics of all immunohistochemical and indirect immunofluorescence stains (if any) cited in this report were determined by the Histopathology [facility] of [facility]. Some of these tests were developed by [...] the attending (teaching) pathologist. 02/14/2024 1:43 PM [facility] Embedded Images 02/14/2024 1:43 PM [facility] Pathology/Cytology BONE MARROW SPECIMEN / Unknown 02/12/2024 9:20 AM PHOTO GRAPHICS LIBRARIAN 02/13/2024 12:34 PM PHOTO GRAPHICS LIBRARIAN Miscellaneous samples (specimen) BONE MARROW SPECIMEN / Unknown 02/12/2024 9:20 AM PHOTO GRAPHICS LIBRARIAN 02/13/2024 12:34 PM PHOTO GRAPHICS LIBRARIAN Rommel Dinh MD LAB - PATHO LOGY/CYTOLOGY ORDERABLES [facility] [address] [place] [address], [facility] [phone] documented in this encounter Visit Diagnoses Diagnosis Illness, unspecified documented in this encounter Care Teams Special Client Bus Driver Relationship Specialty Start Date End Date Timothy Banks MD [address] [place] [phone] PCP - General 10/19/18 Cindy Garcia MD [address] [place] [address] Terminal Gauger Supervisor/Oncologis t Hematology and Oncology 03/24/24 documented as of this encounter
--- OUTSIDE RECORDS SUMMARY | 2024-05-06 12:15 | XMS_ITS | Clinical Summary ---
Author Organization [facility] Address [address] [place] [address] Care Team Providers Care Damage Assessor Name Role Phone Timothy Banks MD Primary Care Provider [phone] Cindy Garcia MD Unavailable Source Comments [facility],non-owned Affiliates and Associated Physician Practices is amultiple site organization consisting of ambulatory clinics and hospital sitesin [place], [place], [place] and [place]. This disclosure is being madepursuant to the Care Everywhere program and may not contain all information available regarding this patient. 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) 04/22/2024 12:45 PM SAMPLE SUPERVISOR - 04/22/2024 11:59 PM [facility] Hospital Encounter [facility] EKG/HOLTER [address] [place] [phone] Cindy Garcia MD Discharge Disposition: Home or Self Care 04/22/2024 9:38 AM SAMPLE SUPERVISOR - 04/22/2024 12:44 PM SAMPLE SUPERVISOR Hospital Encounter [facility] [address] [place] [phone] Unknown, Provider Discharge Disposition: Home or Self Care 04/22/2024 Travel 04/22/2024 Refill [facility] - Hematology/Oncolog y [address] [place] [address] Cindy Garcia MD Refill Request 04/22/2024 Orders Only [facility] - Hematology/Oncolog y [address] [place] [phone] Tg Amezcua, RN 04/22/2024 Orders Only [facility] - Hematology/Oncolog y [address] [place] [phone] Tg Amezcua, KEVIN 04/22/2024 Telephone [facility] - Hematology/Oncolog y [address] [place] [phone] Nikole Chou RN Appointment 04/19/2024 9:58 AM SAMPLE SUPERVISOR - 04/19/2024 11:59 PM SAMPLE SUPERVISOR Hospital Encounter [facility] [address] [place] [phone] Unknown, Provider Discharge Disposition: Home or Self Care 04/19/2024 Travel 04/18/2024 10:30 AM SAMPLE SUPERVISOR Office Visit [facility] - Hematology/Oncolog y [address] [place] [phone] Cindy Garcia MD 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) 04/18/2024 9:32 AM SAMPLE SUPERVISOR - 04/18/2024 11:59 PM SAMPLE SUPERVISOR Hospital Encounter [facility] [address] [place] [phone] Unknown, Provider Discharge Disposition: Home or Self Care 04/18/2024 Travel 04/17/2024 10:32 AM SAMPLE SUPERVISOR - 04/17/2024 11:59 PM SAMPLE SUPERVISOR Hospital Encounter [facility] [address] [place] [phone] Timothy Banks MD Discharge Disposition: Home or Self Care 04/16/2024 10:00 AM SAMPLE SUPERVISOR - 04/16/2024 11:59 PM SAMPLE SUPERVISOR Hospital Encounter [facility] [address] [place] [phone] Unknown, Provider Discharge Disposition: Home or Self Care 04/15/2024 Orders Only [facility] [address] [place] [phone] Cindy Garcia MD 04/11/2024 5:49 AM SAMPLE SUPERVISOR - 04/11/2024 11:05 AM SAMPLE SUPERVISOR Hospital Encounter [facility] HARRY OP [address] [place] [phone] Cindy Garcia MD [facility] Radiology Discharge Disposition: Home or Self Care 04/10/2024 Orders Only [facility] [address] [place] [phone] Cindy Garcia MD Chronic kidney disease, unspecified CKD stage 04/05/2024 Orders Only [facility] [address] [place] [phone] Cindy Garcia MD 04/04/2024 Telephone [facility] - Hematology/Oncolog y [address] [place] [phone] Cindy Garcia MD Medication Prior Auth Request 04/01/2024 3:09 PM SAMPLE SUPERVISOR - 04/01/2024 11:59 PM SAMPLE SUPERVISOR Hospital Encounter [facility] DRAW[facility] [address] [place] [address], [address] [place] [address] Discharge Disposition: Home or Self Care 04/01/2024 2:00 PM SAMPLE SUPERVISOR Office Visit [facility] - Hematology/Oncolog y [address] [place] [phone] Cindy Garcia MD 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) 04/01/2024 Orders Only [facility] [address] [place] [phone] Cindy Garcia MD Tumor lysis syndrome (HCC) 04/01/2024 Travel 04/01/2024 Orders Only [facility] [address] [place] [address] Cindy Garcia MD 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) 03/25/2024 Orders Only [facility] [address] [place] [address] Kasie Ektaelle Chaney, STENCIL MAKER-MAGNETIZER 03/25/2024 Orders Only [facility] - Hematology/Oncolog y [address] [place] [phone] Cindy Garcia MD Acute myeloid leuk w multilin dysplasia, 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) 03/25/2024 Telephone Transitional Care at [facility] [address] [place] [phone] Adamaris Jesus RNpublic health outreach worker 03/14/2024 Pharmacist Telephone/Documenta tion [facility] [address] [place] [address] Cindy Garcia MD Medication Monitoring (VENCLEXTA 100 MG TABLET/) 03/14/2024 Telephone [facility] - Hematology/Oncolog y [address] [place] [address] Cindy Garcia MD Medication Prior Auth Request 03/14/2024 Telephone [facility] - Hematology/Oncolog y [address] [place] [phone] Cindy Garcia MD Medication Prior Auth Request 03/14/2024 Telephone [facility] - Hematology/Oncolog y [address] [place] [phone] Cindy Garcia MD Medication Prior Auth Request 03/13/2024 7:14 PM SAMPLE SUPERVISOR - 03/23/2024 1:56 PM SAMPLE SUPERVISOR Hospital Encounter [facility] 7N ACUTE [address] [place] [address] Cindy Garcia MD Kumar, Ashwath, MD Schrader, Kevin Michael, MD Masud, Josh Chavez MD Internal Medicine Discharge Disposition: Home or Self Care 03/13/2024 Travel 03/13/2024 Telephone [facility] [address] [place] [address] Cindy Garcia MD Medication Prior Auth Request 03/13/2024 Orders Only [facility] PHARMACY [address] [place] [phone] Sammie Hartman, PharmD 03/13/2024 Orders Only [facility] [address] [place] [phone] Cindy Garcia MD 03/04/2024 3:35 PM SAMPLE SUPERVISOR - 03/04/2024 11:59 PM SAMPLE SUPERVISOR Hospital Encounter [facility] DRAW[facility] [address] [place] [address], [address] [place] [address] Discharge Disposition: Home or Self Care 03/04/2024 2:00 PM SAMPLE SUPERVISOR Office Visit [facility] - Hematology/Oncolog y [address] [place] [phone] Cindy Garcia MD MDS (myelodysplastic syndrome) (HCC) (Primary Dx) 03/04/2024 Travel 03/04/2024 Orders Only [facility] [address] [place] [address] Cindy Garcia MD MDS (myelodysplastic syndrome) (HCC) 03/01/2024 Orders Only [facility] [address] [place] [phone] Cindy Garcia MD Neutropenia, unspecified type (HCC) 03/01/2024 Telephone [facility] - Hematology/Oncolog y [address] [place] [phone] Cindy Mansfield MA Appointment (Patient has comfirmed) 02/13/2024 Lab Requisition [facility] - Pathology Lab [address] [place] [phone] Rommel Dinh MD Illness, unspecified 02/12/2024 Lab Requisition [facility] - Pathology Lab [address] [place] [phone] Rommel Dinh MD Decreased white blood cell [...] and heating? Not hard at all 03/13/2024 [facility] - Occupational Stress [...] any time in the past 12 m [facility], were you homeless or living in a long term (including now)? No 03/13/2024 Sex and Gender Information Value Date Recorded Sex Assigned at Male 03/05/2024 8:04 AM SAMPLE SUPERVISOR Gender Identity Male 03/05/2024 8:04 AM SAMPLE SUPERVISOR Sexual Orientation Straight 03/05/2024 8: 04 AM SAMPLE SUPERVISOR Last Filed Vital Signs Vital Sign Reading Time Taken Comments Blood Pressure 126/81 04/22/2024 9:47 AM SAMPLE SUPERVISOR Pulse 61 04/22/2024 9:47 AM SAMPLE SUPERVISOR Temperature 36.2 ??C (97.2 ??F) 04/22/2024 9:47 AM CS T Respiratory Rate 20 04/19/2024 10:07 AM SAMPLE SUPERVISOR Oxygen Saturation 100% 04/22/2024 9:47 AM SAMPLE SUPERVISOR Inhaled Oxygen Concentration - - Weight 99 kg (218 lb 3.2 oz) 04/22/2024 9:47 AM SAMPLE SUPERVISOR Height 182.9 cm (6') 04/22/2024 9:47 AM SAMPLE SUPERVISOR Body Mass Index 29.59 04/22/2024 9:47 AM SAMPLE SUPERVISOR Plan of Treatment Upcoming Encounters Date Type Department Care Team (Late st Contact Info) Description 05/15/2024 1:30 PM SAMPLE SUPERVISOR Appointment [facility] [address] [place] [phone] Cindy Garcia MD [address] [place] [phone] 05/16/2024 9:00 AM SAMPLE SUPERVISOR Appointment [facility] [address] [place] [phone] 05/16/2024 9:40 AM SAMPLE SUPERVISOR Office Visit [facility] - Hematology/Oncology [address] [place] [phone] Stephanie oCnnolly, STENCIL MAKER-MAGNETIZER [address] [place] [phone] 05/17/2024 9:00 AM SAMPLE SUPERVISOR Appointment [facility] [address] [place] [phone] 05/20/2024 9:30 AM SAMPLE SUPERVISOR Appointment [facility] [address] [place] [phone] 05/21/2024 9:00 AM SAMPLE SUPERVISOR Appointment [facility] [address] [place] [phone] 05/22/2024 9:30 AM SAMPLE SUPERVISOR Appointment [facility] [address] [place] [phone] 06/13/2024 9:00 AM SAMPLE SUPERVISOR Appointment [facility] [address] [place] [phone] 06/14/2024 9:00 AM SAMPLE SUPERVISOR Appointment [facility] [address] [place] [phone] 06/17/2024 9:20 AM CDT Appointment [facility] [address] [place] [phone] 06/18/2024 9:20 AM CDT Appointment [facility] [address] [place] [phone] 06/19/2024 9:00 AM CDT Appointment [facility] [address] [place] [phone] Health Maintenance Due Date Last Done Comments DTAP/TDAP/TD VACCINES (1 - Tdap) 11/04/1963 PNEUMOCOCCAL VACCINE 50+ (1 of 2 - PCV) 11/04/1963 ZOSTER VACCINE (1 of 2) 11/04/1963 Respiratory Syncytial Virus (RSV) Vaccine Pt: or over 60 yrs (1 - 1-dose 75+ series) 11/04/2019 COVID-19 VACCINE ( season) 2023 04/14/2021, 06/25/2020, 06/02/2020 DEPRESSION SCREENING [...] this topic Medical Devices Implanted Type Area Sales Activity Manager Device Identifier Shelf Expiration Date Model / Serial / Lot Port Implinfn Powerport Clrvu Argd Kandy Implanted:Qty : 1 on 04/11/2024 by Davian Marshall MD at [facility] Catheters Right: Chest Wall [employer] [id number] 02/07/2025 [id number] / / [id number] Procedures Procedure Name Priority Date/Time Associated Diagnosis Comments EKG 12-LEAD Routine 04/22/2024 1:27 PM SAMPLE SUPERVISOR 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) DIFFERENTIAL MANUAL Routine 04/22/2024 1 0:11 AM SAMPLE SUPERVISOR Acute myeloid leuk w multilin dysplasia, 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) COMPREHENSIVE METABOLIC PANEL Routine 04/22/2024 10:11 AM SAMPLE SUPERVISOR Acute myeloid leuk w multilin dysplasia, 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) CBC W AUTO DIFFERENTIAL Routine 04/22/19 25 10:11 AM SAMPLE SUPERVISOR Acute myeloid leuk w multilin dysplasia, 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) COMPREHENSIVE METABOLIC PANEL Routine 04/18/2024 9:48 AM SAMPLE SUPERVISOR Acute myeloid leuk w multilin dysplasia, 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) CBC W AUTO DIFFERENTIAL Routine 04/18/19 9:48 AM SAMPLE SUPERVISOR Acute myeloid leuk w multilin dysplasia, 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) QUANTIFERON-TB GOLD PLUS 4-TUBE Routine 04/16/2024 1:43 PM SAMPLE SUPERVISOR LDH BLOOD Routine 04/16/2024 10:26 AM SAMPLE SUPERVISOR Tumor lysis syndrome (HCC) COMPREHENSIVE METABOLIC PANEL Routine 04/16/2024 10:26 AM SAMPLE SUPERVISOR Acute myeloid leuk w multilin dysplasia, 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) CBC W AUTO DIFFERENTIAL Routine 04/16/19 25 10:26 AM SAMPLE SUPERVISOR Acute myeloid leuk w multilin dysplasia, 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) COMPREHENSIVE METABOLIC PANEL Routine 04/11/2024 10:54 AM SAMPLE SUPERVISOR Acute myeloid leuk w multilin dysplasia, 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) CBC W AUTO DIFFERENTIAL Routine 04/11/19 10:54 AM SAMPLE SUPERVISOR Acute myeloid leuk w multilin dysplasia, 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) IR TIM CATH INSERT Routine 04/11/2024 9:45 AM SAMPLE SUPERVISOR 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) PT-INR [facility] STAT 04/11/2024 7:20 AM SAMPLE SUPERVISOR 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) MDS (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, 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) PHOSPHORUS BLOOD Routine 04/01/2024 3:12 PM SAMPLE SUPERVISOR Tumor lysis syndrome (HCC) URIC ACID BLOOD Routine 04/01/2024 3:12 PM SAMPLE SUPERVISOR Tumor lysis syndrome (HCC) DIFFERENTIAL MANUAL Routine 04/01/2024 3 :12 PM SAMPLE SUPERVISOR 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) MAGNESIUM BLOOD Routine 04/01/2024 3:12 PM SAMPLE SUPERVISOR 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) ERYTHROPOIETIN Routine 04/01/2024 3:12 PM SAMPLE SUPERVISOR 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) SOLUBLE TRANSFERRIN RECEPTOR Routine 04/01/2024 3:12 PM SAMPLE SUPERVISOR 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) COMPREHENSIVE METABOLIC PANEL Routine 04/01/2024 3:12 PM SAMPLE SUPERVISOR 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) CBC W AUTO DIFFERENTIAL Routine 04/01/20 3:12 PM SAMPLE SUPERVISOR 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) LAB RESULTS ORDER 03/25/2024 DIFFERENTIAL MANUAL AM Draw 03/23/2024 1 2:25 AM SAMPLE SUPERVISOR MAGNESIUM BLOOD Routine 03/23/2024 12:25 AM SAMPLE SUPERVISOR URIC ACID BLOOD Routine 03/23/2024 12:25 AM SAMPLE SUPERVISOR PHOSPHORUS BLOOD Routine 03/23/2024 12:2 5 AM SAMPLE SUPERVISOR COMPREHENSIVE METABOLIC PANEL Routine 03/23/2024 12:25 AM SAMPLE SUPERVISOR LDH BLOOD Routine 03/23/2024 12:25 AM SAMPLE SUPERVISOR PTT [facility] AM Draw 03/23/2024 12:25 AM SAMPLE SUPERVISOR PT-INR [facility] AM Draw 03/23/2024 12:25 AM SAMPLE SUPERVISOR CBC W AUTO DIFFERENTIAL AM Draw 03/23/20 12:25 AM SAMPLE SUPERVISOR MAGNESIUM BLOOD Routine 03/22/2024 6:20 PM SAMPLE SUPERVISOR URIC ACID BLOOD Routine 03/22/2024 6:20 PM SAMPLE SUPERVISOR PHOSPHORUS BLOOD Routine 03/22/2024 6:20 PM SAMPLE SUPERVISOR COMPREHENSIVE METABOLIC PANEL Routine 03/22/2024 6:20 PM SAMPLE SUPERVISOR LDH BLOOD Routine 03/22/2024 6:20 PM SAMPLE SUPERVISOR DIFFERENTIAL MANUAL AM Draw 03/22/2024 6 :58 AM SAMPLE SUPERVISOR MAGNESIUM BLOOD Routine 03/22/2024 6:58 AM SAMPLE SUPERVISOR URIC ACID BLOOD Routine 03/22/2024 6:58 AM SAMPLE SUPERVISOR PHOSPHORUS BLOOD Routine 03/22/2024 6:58 AM SAMPLE SUPERVISOR COMPREHENSIVE METABOLIC PANEL Routine 03/22/2024 6:58 AM SAMPLE SUPERVISOR LDH BLOOD Routine 03/22/2024 6:58 AM SAMPLE SUPERVISOR PTT [facility] AM Draw 03/22/2024 6:58 AM SAMPLE SUPERVISOR PT-INR [facility] AM Draw 03/22/2024 6:58 AM SAMPLE SUPERVISOR CBC W AUTO DIFFERENTIAL AM Draw 03/22/20 6:58 AM SAMPLE SUPERVISOR MAGNESIUM BLOOD Routine 03/21/2024 3:47 AM SAMPLE SUPERVISOR URIC ACID BLOOD Routine 03/21/2024 3:47 AM SAMPLE SUPERVISOR PHOSPHORUS BLOOD Routine 03/21/2024 3:47 AM SAMPLE SUPERVISOR COMPREHENSIVE METABOLIC PANEL Routine 03/21/2024 3:47 AM SAMPLE SUPERVISOR LDH BLOOD Routine 03/21/2024 3:47 AM SAMPLE SUPERVISOR PTT [facility] AM Draw 03/21/2024 3:47 AM SAMPLE SUPERVISOR PT-INR [facility] AM Draw 03/21/2024 3:47 AM SAMPLE SUPERVISOR CBC W AUTO DIFFERENTIAL AM Draw 03/21/20 24 3:47 AM SAMPLE SUPERVISOR MAGNESIUM BLOOD Routine 03/20/2024 4:07 PM SAMPLE SUPERVISOR URIC ACID BLOOD Routine 03/20/2024 4:07 PM SAMPLE SUPERVISOR PHOSPHORUS BLOOD Routine 03/20/2024 4:07 PM SAMPLE SUPERVISOR COMPREHENSIVE METABOLIC PANEL Routine 03/20/2024 4:07 PM SAMPLE SUPERVISOR LDH BLOOD Routine 03/20/2024 4:07 PM SAMPLE SUPERVISOR DIFFERENTIAL MANUAL AM Draw 03/20/2024 6 :28 AM SAMPLE SUPERVISOR LDH BLOOD Routine 03/20/2024 6:28 AM SAMPLE SUPERVISOR PTT SLH AM Draw 03/20/2024 6:28 AM SAMPLE SUPERVISOR PT-INR [facility] AM Draw 03/20/2024 6:28 AM SAMPLE SUPERVISOR URIC ACID BLOOD Routine 03/20/2024 6:28 AM SAMPLE SUPERVISOR PHOSPHORUS BLOOD Routine 03/20/2024 6:28 AM SAMPLE SUPERVISOR MAGNESIUM BLOOD Routine 03/20/2024 6:28 AM SAMPLE SUPERVISOR COMPREHENSIVE METABOLIC PANEL AM Draw 03/20/2024 6:28 AM SAMPLE SUPERVISOR CBC W AUTO DIFFERENTIAL AM Draw 03/20/20 6:28 AM SAMPLE SUPERVISOR DIFFERENTIAL MANUAL AM Draw 03/19/2024 6 :23 AM SAMPLE SUPERVISOR LDH BLOOD Routine 03/19/2024 6:23 AM SAMPLE SUPERVISOR PTT SLH AM Draw 03/19/2024 6:23 AM SAMPLE SUPERVISOR PT-INR SL[facility] AM Draw 03/19/2024 6:23 AM SAMPLE SUPERVISOR URIC ACID BLOOD Routine 03/19/2024 6:23 AM SAMPLE SUPERVISOR PHOSPHORUS BLOOD Routine 03/19/2024 6:23 AM SAMPLE SUPERVISOR MAGNESIUM BLOOD Routine 03/19/2024 6:23 AM SAMPLE SUPERVISOR COMPREHENSIVE METABOLIC PANEL AM Draw 03/19/2024 6:23 AM SAMPLE SUPERVISOR CBC W AUTO DIFFERENTIAL AM Draw 03/19/20 6:23 AM SAMPLE SUPERVISOR EKG 12-LEAD Routine 03/18/2024 1:48 PM SAMPLE SUPERVISOR Inverted T wave PATHOLOGY PERIPHERAL SMEAR REVIEW AM Draw 03/18/2024 8:33 AM SAMPLE SUPERVISOR DIFFERENTIAL MANUAL AM Draw 03/18/2024 8 :33 AM SAMPLE SUPERVISOR LDH BLOOD Routine 03/18/2024 8:33 AM SAMPLE SUPERVISOR PTT SLH AM Draw 03/18/2024 8:33 AM SAMPLE SUPERVISOR PT-INR SLH AM Draw 03/18/2024 8:33 AM SAMPLE SUPERVISOR URIC ACID BLOOD Routine 03/18/2024 8:33 AM SAMPLE SUPERVISOR PHOSPHORUS BLOOD Routine 03/18/2024 8:33 AM SAMPLE SUPERVISOR MAGNESIUM BLOOD Routine 03/18/2024 8:33 AM SAMPLE SUPERVISOR COMPREHENSIVE METABOLIC PANEL AM Draw 03/18/2024 8:33 AM SAMPLE SUPERVISOR CBC W AUTO DIFFERENTIAL AM Draw 03/18/20 8:33 AM SAMPLE SUPERVISOR DIFFERENTIAL MANUAL AM Draw 03/17/2024 5 :28 AM SAMPLE SUPERVISOR LDH BLOOD Routine 03/17/2024 5:28 AM SAMPLE SUPERVISOR PTT SLH AM Draw 03/17/2024 5:28 AM SAMPLE SUPERVISOR PT-INR SLH AM Draw 03/17/2024 5:28 AM SAMPLE SUPERVISOR URIC ACID BLOOD Routine 03/17/2024 5:28 AM SAMPLE SUPERVISOR PHOSPHORUS BLOOD Routine 03/17/2024 5:28 AM SAMPLE SUPERVISOR MAGNESIUM BLOOD Routine 03/17/2024 5:28 AM SAMPLE SUPERVISOR COMPREHENSIVE METABOLIC PANEL AM Draw 03/17/2024 5:28 AM SAMPLE SUPERVISOR CBC W AUTO DIFFERENTIAL AM Draw 03/17/20 24 5:28 AM SAMPLE SUPERVISOR DIFFERENTIAL MANUAL AM Draw 03/16/2024 1 2:04 AM SAMPLE SUPERVISOR LDH BLOOD Routine 03/16/2024 12:04 AM SAMPLE SUPERVISOR PTT SLH AM Draw 03/16/2024 12:04 AM SAMPLE SUPERVISOR PT-INR SL[facility] AM Draw 03/16/2024 12:04 AM SAMPLE SUPERVISOR URIC ACID BLOOD Routine 03/16/2024 12:04 AM SAMPLE SUPERVISOR PHOSPHORUS BLOOD Routine 03/16/2024 12:0 4 AM SAMPLE SUPERVISOR MAGNESIUM BLOOD Routine 03/16/2024 12:04 AM SAMPLE SUPERVISOR COMPREHENSIVE METABOLIC PANEL AM Draw 03/16/2024 12:04 AM SAMPLE SUPERVISOR CBC W AUTO DIFFERENTIAL AM Draw 03/16/20 24 12:04 AM SAMPLE SUPERVISOR ECHO COMPLETE W CONTRAST Routine 03/15/2024 1:47 PM SAMPLE SUPERVISOR MDS (myelodysplastic syndrome) (HCC) MYELOID MALIGNANCIES MUTATION PNL Routine 03/15/2024 9:05 AM SAMPLE SUPERVISOR MDS (myelodysplastic syndrome) (HCC) FISH MDS PANEL BLOOD OR BONE MARROW Routine 03/15/2024 9:05 AM SAMPLE SUPERVISOR MDS (myelodysplastic syndrome) (HCC) FISH AML PANEL BLOOD OR BM RFLX PML/DANTE Routine 03/15/2024 9:05 AM SAMPLE SUPERVISOR MDS (myelodysplastic syndrome) (HCC) FLOW CYTOMETRY BONE MARROW Routine 03/15/2024 9:05 AM SAMPLE SUPERVISOR MDS (myelodysplastic syndrome) (HCC) BONE MARROW BIOPSY (STL) Routine 03/15/2024 9:05 AM SAMPLE SUPERVISOR MDS (myelodysplastic syndrome) (HCC) FISH PML/DANTE PANEL Routine 03/15/2024 9 :05 AM SAMPLE SUPERVISOR MDS (myelodysplastic syndrome) (HCC) CHROMOSOME ANALYSIS BONE MARROW PANEL Routine 03/15/2024 9:05 AM SAMPLE SUPERVISOR MDS (myelodysplastic syndrome) (HCC) LAB MISC TEST (NOT BLOOD) Routine 03/15/2024 9:05 AM SAMPLE SUPERVISOR LAB MISC TEST (NOT BLOOD) Routine 03/15/2024 9:05 AM SAMPLE SUPERVISOR LAB MISC TEST (NOT BLOOD) Routine 03/15/2024 9:05 AM SAMPLE SUPERVISOR DIFFERENTIAL MANUAL AM Draw 03/15/2024 7 :53 AM SAMPLE SUPERVISOR LDH BLOOD Routine 03/15/2024 7:53 AM SAMPLE SUPERVISOR PTT SLH AM Draw 03/15/2024 7:53 AM SAMPLE SUPERVISOR PT-INR SLH AM Draw 03/15/2024 7:53 AM SAMPLE SUPERVISOR URIC ACID BLOOD Routine 03/15/2024 7:53 AM SAMPLE SUPERVISOR PHOSPHORUS BLOOD Routine 03/15/2024 7:53 AM SAMPLE SUPERVISOR MAGNESIUM BLOOD Routine 03/15/2024 7:53 AM SAMPLE SUPERVISOR COMPREHENSIVE METABOLIC PANEL AM Draw 03/15/2024 7:53 AM SAMPLE SUPERVISOR CBC W AUTO DIFFERENTIAL AM Draw 03/15/20 24 7:53 AM SAMPLE SUPERVISOR EKG 12-LEAD STAT 03/14/2024 12:30 PM SAMPLE SUPERVISOR MDS (myelodysplastic syndrome) (HCC) FLOW CYTOMETRY BLOOD PROFILE Routine 03/14/2024 10:32 AM SAMPLE SUPERVISOR MDS (myelodysplastic syndrome) (HCC) DIFFERENTIAL MANUAL STAT 03/13/2024 1 1:26 PM SAMPLE SUPERVISOR LDH BLOOD Routine 03/13/2024 11:26 PM SAMPLE SUPERVISOR PTT SLH Routine 03/13/2024 11:26 PM SAMPLE SUPERVISOR PT-INR SLH Routine 03/13/2024 11:26 PM SAMPLE SUPERVISOR FIBRINOGEN ACTIVITY Routine 03/13/2024 1 1:26 PM SAMPLE SUPERVISOR D-DIMER Routine 03/13/2024 11:26 PM SAMPLE SUPERVISOR URIC ACID BLOOD Routine 03/13/2024 11:26 PM SAMPLE SUPERVISOR PHOSPHORUS BLOOD Routine 03/13/2024 11:2 6 PM SAMPLE SUPERVISOR MAGNESIUM BLOOD Routine 03/13/2024 11:26 PM SAMPLE SUPERVISOR COMPREHENSIVE METABOLIC PANEL STAT 03/13/2024 11:26 PM SAMPLE SUPERVISOR CBC W AUTO DIFFERENTIAL STAT 03/13/20 24 11:26 PM SAMPLE SUPERVISOR QUINN-TOVAR VIRUS QUANT BLOOD STL Routine 03/13/2024 11:26 PM SAMPLE SUPERVISOR CYTOMEGALOVIRUS (CMV) QUANTITATIVE PLASMA Routine 03/13/2024 11:26 PM SAMPLE SUPERVISOR CHROMOSOME ANALYSIS LEUKEMIA BLD Routine 03/04/2024 4:13 PM SAMPLE SUPERVISOR MDS (myelodysplastic syndrome) (HCC) FISH PML/DANTE PANEL Routine 03/04/2024 4 :13 PM SAMPLE SUPERVISOR MDS (myelodysplastic syndrome) (HCC) FISH AML PANEL BLOOD OR BM RFLX PML/DANTE Routine 03/04/2024 4:13 PM SAMPLE SUPERVISOR MDS (myelodysplastic syndrome) (HCC) FISH AML+MDS PANEL BLOOD OR BONE MARROW Routine 03/04/2024 4:13 PM SAMPLE SUPERVISOR MDS (myelodysplastic syndrome) (HCC) MYELOID MALIGNANCIES MUTATION PNL STAT 03/04/2024 4:13 PM SAMPLE SUPERVISOR MDS (myelodysplastic syndrome) (HCC) HLA TYPING LOW/HIGH RESOLUTION DPB1 Routine 03/04/2024 4:13 PM SAMPLE SUPERVISOR MDS (myelodysplastic syndrome) (HCC) HLA TYPING DNA HIGH RESOLUTION DR Routine 03/04/2024 4:13 PM SAMPLE SUPERVISOR MDS (myelodysplastic syndrome) (HCC) HLA TYPING DNA HIGH RESOLUTION B Routine 03/04/2024 4:13 PM SAMPLE SUPERVISOR MDS (myelodysplastic syndrome) (HCC) HLA TYPING DNA HIGH RESOLUTION C Routine 03/04/2024 4:13 PM SAMPLE SUPERVISOR MDS (myelodysplastic syndrome) (HCC) HLA TYPING DNA HIGH RESOLUTION DQ Routine 03/04/2024 4:13 PM SAMPLE SUPERVISOR MDS (myelodysplastic syndrome) (HCC) HLA TYPING DNA HIGH RESOLUTION A Routine 03/04/2024 4:13 PM SAMPLE SUPERVISOR MDS (myelodysplastic syndrome) (HCC) HLA TYPING DNA LOW RESOLUTION DR,DQ Routine 03/04/2024 4:13 PM SAMPLE SUPERVISOR MDS (myelodysplastic syndrome) (HCC) HLA TYPING DNA LOW RESOLUTION A,B,C Routine 03/04/2024 4:13 PM SAMPLE SUPERVISOR MDS (myelodysplastic syndrome) (HCC) HLA TYPING DNA HIGH RES Routine 03/04/20 4:13 PM SAMPLE SUPERVISOR MDS (myelodysplastic syndrome) (HCC) DIFFERENTIAL MANUAL Routine 03/04/2024 4 :13 PM SAMPLE SUPERVISOR Neutropenia, unspecified type (HCC) BCR-ABL1 CML+AML PCR QUANT PNL Routine 03/04/2024 4:13 PM SAMPLE SUPERVISOR MDS (myelodysplastic syndrome) (HCC) CYTOMEGALOVIRUS ANTIBODY IGG BLOOD Routine 03/04/2024 4:13 PM SAMPLE SUPERVISOR MDS (myelodysplastic syndrome) (HCC) HEPATITIS C ANTIBODY Routine 03/04/2024 4:13 PM SAMPLE SUPERVISOR Neutropenia, unspecified type (HCC) HEPATITIS B SURFACE ANTIBODY Routine 03/04/2024 4:13 PM SAMPLE SUPERVISOR Neutropenia, unspecified type (HCC) HIV-1 HIV-2 ANTIBODY + HIV P24 AG PANEL Routine 03/04/2024 4:13 PM SAMPLE SUPERVISOR Neutropenia, unspecified type (HCC) ERYTHROCYTE SEDIMENTATION RATE Routine 03/04/2024 4:13 PM SAMPLE SUPERVISOR Neutropenia, unspecified type (HCC) C-REACTIVE PROTEIN Routine 03/04/2024 4: 13 PM SAMPLE SUPERVISOR Neutropenia, unspecified type (HCC) RHEUMATOID FACTOR BLOOD QUANTITATIVE Routine 03/04/2024 4:13 PM SAMPLE SUPERVISOR Neutropenia, unspecified type (HCC) MARLINE BLOOD SCREEN W/REFLEX TITER Routine 03/04/2024 4:13 PM SAMPLE SUPERVISOR Neutropenia, unspecified type (HCC) FERRITIN Routine 03/04/2024 4:13 PM SAMPLE SUPERVISOR Neutropenia, unspecified type (HCC) IRON + TRANSFERRIN PANEL Routine 03/04/2024 4:13 PM SAMPLE SUPERVISOR Neutropenia, unspecified type (HCC) TSH REFLEX FREE T4 Routine 03/04/2024 4: 13 PM SAMPLE SUPERVISOR Neutropenia, unspecified type (HCC) ZINC BLOOD Routine 03/04/2024 4:13 PM SAMPLE SUPERVISOR Neutropenia, unspecified type (HCC) COPPER BLOOD Routine 03/04/2024 4:13 PM SAMPLE SUPERVISOR Neutropenia, unspecified type (HCC) FOLATE Routine 03/04/2024 4:13 PM SAMPLE SUPERVISOR Neutropenia, unspecified type (HCC) VITAMIN B12 Routine 03/04/2024 4:13 PM SAMPLE SUPERVISOR Neutropenia, unspecified type (HCC) COMPREHENSIVE METABOLIC PANEL Routine 03/04/2024 4:13 PM SAMPLE SUPERVISOR Neutropenia, unspecified type (HCC) CBC W AUTO DIFFERENTIAL Routine 03/04/20 4:13 PM SAMPLE SUPERVISOR Neutropenia, unspecified type (HCC) HEPATITIS B CORE ANTIBODY TOTAL Routine 03/04/2024 4:13 PM SAMPLE SUPERVISOR Neutropenia, unspecified type (HCC) BONE MARROW BIOPSY (STL) Routine 02/12/2024 9:20 AM SAMPLE SUPERVISOR Illness, unspecified FLOW CYTOMETRY BONE MARROW Routine 02/12/2024 9:20 AM SAMPLE SUPERVISOR Decreased white blood cell count, unspecified from Last 3 Months Results * EKG 12-LEAD - HOSPITAL PERFORMED (04/22/2024 1:27 PM SAMPLE SUPERVISOR) Only the most recent of3 resultswithin the time period is included. Ventricular Rate 61 BPM [facility]USE Atrial Rate 61 BPM [facility] MUSE P-R Interval 112 ms [facility] MUSE QRS Duration ms 126 ms [facility] MUSE Q-T Interval ms 476 ms [facility] MUSE QTC Calculation (Bezet) 479 ms [facility] MUSE Calculated P [place] 84 degrees SL MUSE Calculated R [place] 36 degrees SL MUSE Calculated T [place] -163 degrees [facility] MUSE Interpretation EKG NORMAL SINUS RHYTHM NON-SPECIFIC INTRA-VENTRICULA R CONDUCTION BLOCK T WAVE ABNORMALITY, CONSIDER INFERIOR ISCHEMIA T WAVE ABNORMALITY, CONSIDER ANTEROLATERAL ISCHEMIA ABNORMAL ECG WHEN COMPARED WITH ECG OF 18-MAR-2024 13:48, NO SIGNIFICANT CHANGE WAS FOUND Confirmed by MAR ??HANSEL MARTINEZ ([id number]) on 04/23/2024 8:31:57 AM [facility] MUSE 04/22/2024 1:27 PM SAMPLE SUPERVISOR 04/23/2024 8:31 AM [facility] Cindy Garcia MD ECG ORDERABLES [facility] MUSE * (ABNORMAL) DIFFERENTIAL MANUAL (04/22/2024 10:11 AM SAMPLE SUPERVISOR) Only the most recent of12 resultswithin the time period is included. Neutrophil % 37(L) 41 - 74 % 04/22/2024 11:21 AM [facility] Lymphocyte % 39 17 - 47 % 04/22/2024 11:21 AM [facility] Monocyte % 22(H) 3 - 11 % 04/22/2024 11:21 AM [facility] Eosinophil % 1 0 - 7 % 04/22/2024 11:21 AM [facility] Metamyelocyte % 1(H) 0% % 11:21 AM [facility] Neutrophil Absolute 0.22(L) 1.60 - 7.50 x10E9/L 04/22/2024 11:21 AM [facility] Lymphocyte Absolute 0.23(L) 1.00 - 4.40 x10E9/L 04/22/2024 11:21 AM [facility] Monocyte Absolute 0.13(L) 0.15 - 1.00 x10E9/L 04/22/2024 11:21 AM [facility] Eosinophil Absolute 0.01 0.00 - 0.60 x10E9/L 04/22/2024 11:21 AM [facility] RBC Morphology REVIEWED 04/22/2024 11:21 AM [facility] Schistocytes MODERATE(A) (none) 04/22/2024 11:21 AM [facility] Large Platelets PRESENT(A) (none) 11:21 AM [facility] Blood BLOOD SPECIMEN / Unknown Venipuncture / Unknown 04/22/2024 10:11 AM SAMPLE SUPERVISOR 04/22/2024 10:33 AM SAMPLE SUPERVISOR Cindy Garcia MD LAB - HEMATOLOGY ORD ERABLES [facility] [address] [place] [address], [facility] [phone] * (ABNORMAL) CBC WITH DIFFERENTIAL (04/22/2024 10:11 AM [facility]) Only the most recent of16 resultswithin the time period is included. WBC 0.6(LL) 4.0 - 10.7 x10E9/L 04/22/2024 11:21 AM [facility] RBC Count 3.69(L) 4.30 - 5.80 x10E12/L 04/22/2024 11:21 AM [facility] Hemoglobin 10.3(L) 13.3 - 17.5 g/dL 04/22/2024 11:21 AM [facility] Hematocrit 31.8(L) 38.7 - 51.1 % 04/22/2024 11:21 AM [facility] MCV 86.2 80.0 - 98.0 fL 04/22/2024 11:21 AM [facility] MCH 27.9 26.7 - 33.6 pg 04/22/2024 11:21 AM [facility] MCHC 32.4 31.7 - 36.3 g/dL 04/22/2024 11:21 AM [facility] RDW-CV 17.9(H) 11.3 - 14.8 % 04/22/2024 11:21 AM [facility] Platelet Count 212 150 - 420 x10E9/L 04/22/2024 11:21 AM [facility] MPV 12.4(H) 7.8 - 11.4 fL 04/22/2024 11:21 AM [facility] Preliminary Absolute Neutrophil 0.17(L) 1.60 - 7.50 x10E9/L 04/22/2024 11:21 AM [facility] Blood BLOOD SPECIMEN / Unknown Venipuncture / Unknown 04/22/2024 10:11 AM SAMPLE SUPERVISOR 04/22/2024 10:33 AM [facility] Cindy Garcia MD LAB - HEMATOLOGY ORD ERABLES [facility] [address] [address], [place] [phone] * (ABNORMAL) COMPREHENSIVE METABOLIC PANEL (04/22/2024 10:11 AM [facility]) Only the most recent of18 resultswithin the time period is included. BUN 11 7 - 26 mg/dL 04/22/2024 10:58 AM [facility] Creatinine 1.08 0.71 - 1.16 mg/dL 04/22/2024 10:58 AM [facility] Sodium 140 136 - 145 mmol/L 04/22/2024 10:58 AM [facility] Potassium 3.5 3.5 - 4.5 mmol/L 04/22/2024 10:58 AM [facility] Chloride 109(H) 98 - 107 mmol/L 04/22/2024 10:58 AM [facility] CO2 23 22 - 29 mmol/L 04/22/2024 10:58 AM [facility] Glucose 90 70 - 99 mg/dL 04/22/2024 10:58 AM [facility] Calcium 8.7 8.4 - 10.2 mg/dL 04/22/2024 10:58 AM [facility] Protein Total 6.1 6.0 - 8.3 g/dL 04/22/2024 10:58 AM [facility] Albumin 3.4 3.4 - 5.0 g/dL 04/22/2024 10:58 AM [facility] Bilirubin Total 1.1 0.2 - 1.2 mg/dL 04/22/2024 10:58 AM [facility] Alkaline Phosphatase 136 40 - 150 U/L 04/22/2024 10:58 AM [facility] ALT 21 5 - 55 U/L 04/22/2024 10:58 AM [facility] AST 17 5 - 34 U/L 04/22/2024 10:58 AM [facility] Anion Gap 8 6 - 16 04/22/2024 10:58 AM [facility] BUN/Creatinine Ratio 10 7 - 23 04/22/2024 10:58 AM [facility] Osmolality Calculated 289 275 - 295 mOsm/kg 04/22/2024 10:58 AM SAMPLE SUPERVISOR [facility] Albumin/Globulin Ratio 1.3 1.1 - 2.3 04/22/2024 10:58 AM [facility] eGFR by CKD-EPI 70(L) >=90 mL/min/1.7 3 m2 04/22/2024 10:58 AM [facility] Blood BLOOD SPECIMEN / Unknown Venipuncture / Unknown 04/22/2024 10:11 AM SAMPLE SUPERVISOR 04/22/2024 10:31 AM SAMPLE SUPERVISOR Cindy Garcia MD LAB - CHEMISTRY CHELI MONREAL [facility] [address] [place] [address], [facility] [phone] * QUANTIFERON-TB GOLD PLUS 4-TUBE (04/16/2024 1:43 PM SAMPLE SUPERVISOR) QuantiFERON Mitogen Minus NIL 9.09 IU/mL 04/18/2024 11:11 PM SAMPLE SUPERVISOR [facility]) QuantiFERON Nil Value 0.04 IU/mL 04/18/2024 11:11 PM SAMPLE SUPERVISOR [facility]) QuantiFERON Plus TB1 Minus NIL 0.00 <=0.34 IU/mL 04/18/2024 11:11 PM SAMPLE SUPERVISOR [facility]) QuantiFERON Plus TB2 Minus NIL 0.00 <=0.34 IU/mL 04/18/2024 11:11 PM SAMPLE SUPERVISOR [facility]) QuantiFERON-TB Gold Plus Negative Negative 04/18/2024 11:11 PM SAMPLE SUPERVISOR [facility] [employer]) Comment: INTERPRETIVE INFORMATION:Quantiferon TB Gold Plus Interferon [...] Mycobacterium tuberculosis Infection -- [place], 2010 (http://www.cdc.gov/mmwr/preview/mmwrhtml/rv2368n0.htm), for more information concerning test performance in low-prevalence populations and use in occupational screening. Performed By: [facility] [address] [place] [address] Manager Social Responsibility: Uche Morley MD, PhD CLIA Number: [id number] Blood BLOOD SPECIMEN / Unknown Venipuncture / Unknown 04/16/2024 1:43 PM SAMPLE SUPERVISOR 04/16/2024 2:03 PM SAMPLE SUPERVISOR Cindy Garcia MD LAB - CHEMISTRY CHELI MONREAL Performing Organization Address City/[facility]/ZIP Co de Phone Number [facility] ([facility]) [address] [place] [address] * LDH BLOOD (04/16/2024 10:26 AM SAMPLE SUPERVISOR) Only the most recent of13 resultswithin the time period is included. [facility] LDH Total 197 125 - 243 Units/L 04/16/2024 11:14 AM SAMPLE SUPERVISOR [facility] Blood BLOOD SPECIMEN / Unknown Venipuncture / Unknown 04/16/2024 10:26 AM SAMPLE SUPERVISOR 04/16/2024 10:48 AM SAMPLE SUPERVISOR Cindy Garcia MD LAB - CHEMISTRY CHELI MONREAL [facility] [address] [place] [address], [place] [phone] * IR Tim Cath Insert (04/11/2024 9:45 AM SAMPLE SUPERVISOR) Anatomical Region Laterality Modality Chest X-Ray Angiograph y 04/11/2024 9:19 AM SAMPLE SUPERVISOR Impressions 04/11/2024 3:43 PM SAMPLE SUPERVISOR Impression: Successful placement of a single lumen 8 Palestinian x 23 cm chest power port via [...] evaluation, please review the evaluation forms in [facility]. For details on monitored clinical parameters during the intra-service sedation time, please review the procedure nurse documentation in [facility]. Report dictated by Eduardo Coleman MD, PhD (resident inspector). > Dictated by Eduardo Coleman MD (Farmworker) 04/11/2024 9:19 AM Davian Psot DO have personally reviewed and interpreted this examination/study. 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 3.Fluoroscopy-guided placement of single lumen 8 Palestinian x 23 cm chest power port via [...] draped in the usual sterile manner. 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 3.Fluoroscopy-guided placement of single lumen 8 Palestinian x 23 cm chestpower port via the [...] and draped inthe usual sterile manner. A speeder frame tender film of chest was obtained, which [...] the procedure well [facility]. There were no immediate complicationsassociated with the procedure. Impression: Successful placement of a single lumen 8 Palestinian x 23 cmchest power port via the right internal jugular vein under ultrasound and fluoroscopic guidance, as described above. Note: Keep the dressing clean and dry for 5 days. Recommend port access after 5 days to minimize infection and allow better healing. Sincere, Dr. Davian Marshall, was present and performed/supervised the entire procedure. Moderate sedation on this patient was ordered by me, administered intravenously in my presence, and monitored by [facility] as an independent trained observer who [...] evaluation, please review the evaluation forms in [facility]. For details on monitored clinical parameters during the intra-service sedation time, please review the procedure nurse documentation in [facility]. Report dictated by Eduardo Coleman MD, PhD (resident inspector). > Dictated by Eduardo Coleman MD (Farmworker) 04/11/2024 9:19AM Davian Post DO have personally reviewed and interpreted this examination/study. > Interpreting Provider: Davian Marshall DO on 04/11/2024 3:43 PM Cindy Garcia MD IR ORDERABLES * PT-INR [facility] (04/11/2024 7:20 AM SAMPLE SUPERVISOR) Only the most recent of11 resultswithin the time period is included. PT 14.6 12.1 - 14.8 Seconds 04/11/2024 7:56 AM SAMPLE SUPERVISOR [facility] INR 1.2 See Comment 04/11/2024 7:56 AM SAMPLE SUPERVISOR [facility] Comment:The suggested therap eutic range for standard coumadin (warfarin) therapy is an INR of 2.0-3.0. For high-risk patients (Mechanical Mitral Valve Prosthesis, etc.), the suggested prophylactic therapeutic range is an INR of 2.5-3.5. Blood BLOOD SPECIMEN / Unknown Venipuncture / Unknown 04/11/2024 7:20 AM SAMPLE SUPERVISOR 04/11/2024 7:23 AM SAMPLE SUPERVISOR Cindy Garcia MD LAB - COAGULATION OR DERABLES [address] [address], [facility] [phone] * URIC ACID BLOOD (04/01/2024 3:12 PM SAMPLE SUPERVISOR) Only the most recent of13 resultswithin the time period is included. Uric Acid 4.0 3.5 - 7.2 mg/dL 04/01/2024 5:52 PM SAMPLE SUPERVISOR [facility] Blood BLOOD SPECIMEN / Unknown Lab Venipuncture / Unknown 04/01/2024 3:12 PM SAMPLE SUPERVISOR 04/01/2024 5:30 PM SAMPLE SUPERVISOR Cindy Garcia MD LAB - CHEMISTRY ORDE RABLES Performing Organization Address City/[facility]/ZIP Co de Phone Number [address] [address], [facility] [phone] * ERYTHROPOIETIN (04/01/2024 3:12 PM SAMPLE SUPERVISOR) Erythropoietin 22 4 - 27 mU/mL 04/02/2024 11:36 AM SAMPLE SUPERVISOR [email or web address] ([facility]) Comment: INTERPRETIVE INFORMATION: Erythropoietin Normal serum concentrations [...] may benefit from therapy with recombinant EPO ([facility] [phone],1989). Performed By: [facility] [address] [place] [address] Manager Social Responsibility: Uche Morley MD, PhD CLIA Number: [id number] Blood BLOOD SPECIMEN / Unknown Lab Venipuncture / Unknown 04/01/2024 3:12 PM SAMPLE SUPERVISOR 04/01/2024 3:22 PM SAMPLE SUPERVISOR Cindy Garcia MD LAB - CHEMISTRY CHELI MONREAL [facility] ([facility]) [address] [place] [address], [facility] * SOLUBLE TRANSFERRIN RECEPTOR (04/01/2024 3:12 PM SAMPLE SUPERVISOR) [facility] Soluble Transferrin Receptor 3.3 2.2 - 5.0 mg/L 04/02/2024 9:13 PM SAMPLE SUPERVISOR [facility] [employer] ([facility]) Comment: INTERPRETIVE INFORMATION: Soluble Transferrin Receptor People [...] ??High ? Normal ? High Performed By: [facility] [address] [place] [address] Manager Social Responsibility: Uche Morley MD, PhD CLIA Number: [id number] Blood BLOOD SPECIMEN / Unknown Lab Venipuncture / Unknown 04/01/2024 3:12 PM SAMPLE SUPERVISOR 04/01/2024 3:22 PM SAMPLE SUPERVISOR Cindy Garcia MD LAB - CHEMISTRY CHELI MONREAL Performing Organization Address [facility] Co de Phone Number [facility]) [address] [place] [address], [facility] * PHOSPHORUS BLOOD (04/01/2024 3:12 PM SAMPLE SUPERVISOR) Only the most recent of13 resultswithin the time period is included. Pathologist [facility] Phosphorus 2.9 2.8 - 5.1 mg/dL 04/01/2024 5:52 PM SAMPLE SUPERVISOR [facility] Blood BLOOD SPECIMEN / Unknown Lab Venipuncture / Unknown 04/01/2024 3:12 PM SAMPLE SUPERVISOR 04/01/2024 5:30 PM SAMPLE SUPERVISOR Cindy Garcia MD LAB - CHEMISTRY CHELI MONREAL Performing Organization Address City/[facility]/ZIP Co de Phone Number [address] [address], [place] [phone] * MAGNESIUM BLOOD (04/01/2024 3:12 PM SAMPLE SUPERVISOR) Only the most recent of13 resultswithin the time period is included. Magnesium 2.1 1.6 - 2.6 mg/dL 04/01/2024 4:25 PM [facility] Comment:Hemolysis detected i n this specimen. Hemolysis is known to cause elevations in this analyte. Caution should be exercised in the interpretation of this result. Recommend repeat testing if clinically indicated. Blood BLOOD SPECIMEN / Unknown Lab Venipuncture / Unknown 04/01/2024 3:12 PM SAMPLE SUPERVISOR 04/01/2024 3:36 PM SAMPLE SUPERVISOR Cindy Garcia MD LAB - CHEMISTRY CHELI MONREAL Performing Organization Address City/[facility]/ZIP Co de Phone Number [address] [address], [facility] [phone] * LAB RESULTS ORDER (03/25/2024) 03/25/2024 Narrative 03/25/2024 Ordered by an unspecified provider. Scanned Document LAB - THERAPEUTIC DR VANCE MONITORING ORDERABLES * PTT [facility] (03/23/2024 12:25 AM SAMPLE SUPERVISOR) Only the most recent of10 resultswithin the time period is included. [facility] APTT 35.4 23.0 - 38.4 Seconds 03/23/2024 1:31 AM [facility] Comment:Suggested therapeuti c range for full dose I.V. unfractionated heparin therapy for venous thromboembolism is 71 to 109 seconds. Blood BLOOD SPECIMEN / Unknown Venipuncture / Unknown 03/23/2024 12:25 AM SAMPLE SUPERVISOR 03/23/2024 1:05 AM SAMPLE SUPERVISOR Ghanshyam Dewey PA-C LAB - COAGULATION OR DERABLES Performing Organization Address City/[facility]/ZIP Co de Phone Number [address] [address], [place] [phone] * PATHOLOGY PERIPHERAL SMEAR REVIEW (03/18/2024 8:33 AM SAMPLE SUPERVISOR) [facility] Path Review Confirmed 03/18/2024 2:44 PM SAMPLE SUPERVISOR [facility] Blood BLOOD SPECIMEN / Unknown Lab Venipuncture / Unknown 03/18/2024 8:33 AM SAMPLE SUPERVISOR 03/18/2024 8:46 AM SAMPLE SUPERVISOR Narrative [facility] - 03/18/2024 2:44 PM SAMPLE SUPERVISOR A rare blast seen. Ghanshyam Dewey PA-C LAB - PATHOLOGY/CYTO LOGY ORDERABLES [facility] [address] [place] [address], [facility] [phone] * ECHO COMPLETE W CONTRAST (03/15/2024 1:47 PM SAMPLE SUPERVISOR) IVSd 2D 1.314 cm SSM CV FUJ [...] Region Laterality Modality Ultrasound 03/15/2024 2:04 PM SAMPLE SUPERVISOR Narrative 03/15/2024 5:17 PM SAMPLE SUPERVISOR Summary ??* The left ventricle is normal [...] valve regurgitation. Patient Info Name: ? Russ Sadaf Kern Age: ? 78 years : ? 1945 Gender: ? Male Accession #: ? [id number] Ht: ? 72 in Wt: ? 218 lb BSA: ? 2.26 m2 HR: ? 65 bpm BP: ? 103 / ? 55 mmHg Exam Date: ? 03/15/2024 2:04 PM Patient Status: ? I/P Study Site: ? [facility] Primary Location: ? [facility] [...] ? Ted Soler Fellow: ? Josh Knight Waste Water Worker: ? Dhruv Sorto Left Ventricle ??Left ventricular [...] 2:04 PM Patient Status: I/P Study Site: [facility] Primary Location: [facility] EStud [...] Attending Physician: Ted Soler Fellow: Josh Knight Waste Water Worker: Dhruv Sorto Left Ventricle Left ventricular systolic [...] on 03/15/2024 05:17 PM Reviewed by Fellow Jsoh Knight on 03/15/2024 04:56 PM Ted Soler MD ECHO CUPID * FISH MDS PANEL BLOOD OR BONE MARROW (03/15/2024 9:05 AM SAMPLE SUPERVISOR) Pathologist [facility] MDS Panel by Fish See Note Normal 024 11:26 AM SAMPLE SUPERVISOR [email or web address] ([facility]) Comment: Test Performed: Myelodysplastic Syndrome (MDS) Panel by FISH (FISH MDS P) Specimen Type: Bone Marrow Indication for Testing: Myelodysplastic syndrome, unspecified RESULT Normal FISH Result Deletion 5q: ??not detected Monosomy 7: ??not detected Deletion 7q: ??not detected Trisomy 8: ??not detected Deletion 20q: ??not detected INTERPRETATION There was no evidence of deletion 5q31, monosomy 7, deletion 7q31, trisomy 8, or deletion 30r71-n00.1. This analysis was performed with the MDS panel probes D5S23/EGR1, D7Z1/L6P184, CEP8 ([employer]), and Del(20q) ([employer]). A total of 200 cells were scored for each probe. Cytogenomic Nomenclature (ISCN): nuc nereyda(D5S23,EGR1,D7Z1,L0G079,D8Z2,M56S172,MYBL2)x2[200' This result has been reviewed and approved by Nabila Gonzalez, PhD, [facility] A portion of this analysis was performed at the following location(s): [facility] Site [id number] INTERPRETIVE INFORMATION: MDS Panel by FISH This test was developed and its performance characteristics determined by [facility]. It has not been cleared or approved by the [place] Food and Drug Administration. This test was performed in a CLIA certified laboratory and is intended for clinical purposes. EER MDS Fish Panel See Note 2023 11:26 AM SAMPLE SUPERVISOR [facility] [employer] ([facility]) Comment: Authorized individuals can access the [employer] Enhanced Report using the following link: [email or web address] Performed By: [facility] [address] [place] [address] Manager Social Responsibility: Uche Morley MD, PhD CLIA Number: [id number] Other BONE MARROW SPECIMEN / Unknown Collection / Unknown 03/15/2024 9:05 AM SAMPLE SUPERVISOR 03/15/2024 9:30 AM SAMPLE SUPERVISOR Rodo Perez MD LAB - PATHOLOG Y/CYTOLOGY ORDERABLES [email or web address] [facility]) [address] * FISH AML PANEL BLOOD OR BM RFLX PML/DANTE (03/15/2024 9:05 AM SAMPLE SUPERVISOR) Only the most recent of2 resultswithin the time period is included. FISH AML Panel See Note Normal 03/25/2024 10:34 AM SAMPLE SUPERVISOR [email or web address] ([facility]) Comment: Test Performed: Acute Myeloid Leukemia Panel by FISH (FISHAML) Specimen Type: Bone Marrow Indication for Testing: Myelodysplastic syndrome, unspecified RESULT Normal FISH Result inv(3) or t(3;3) GATA2::MECOM Fusion: ??not detected Deletion 5q: ??not detected Monosomy 7: ??not detected Deletion 7q: ??not detected t(8;21) RUNX1::GPWZ0Y8 Fusion: ??not detected 11p15 (NUP98) Rearrangement: ??not detected 11q23 (KMT2A) Rearrangement: ??not detected inv(16) or t(16;16) CBFB::MYH11 Fusion: ??not detected INTERPRETATION There was no evidence of GATA2::MECOM (also known as RPN1-EVI1) fusion due to 3q21/3q26.2 inversion or translocation, deletion 5q31, monosomy 7, deletion 7q31, RUNX1::SPHH4E4 fusion due to translocation (8;21)(q21.3;q22), 11p15 (NUP98) rearrangement, 11q23 KMT2A (MLL) rearrangement, or CBFB::MYH11 fusion due to either 16p13.1/16q22 inversion or translocation. This analysis was performed with the AML panel probes RPN1/MECOM, D5S23/EGR1, D7Z1/C1C719, RUNX1/LFUO0F5 ([employer]), NUP98 and CBFB-MYH11 ([employer]), and MLL (KMT2A) (CytoOnaro). A total of 200 cells were scored for each probe. Cytogenomic Nomenclature (ISCN): nuc nereyda(RPN1,MECOM,D5S23,EGR1,D7Z1,U8B789,KVRV8A4,NUP98,KMT2A,MYH11,CBF B,RUNX1)x2[200' This result has been reviewed and approved by Mundo Mejia, PhD, ABG A portion of this analysis was performed at the following location(s): [facility] CG-CO#1 INTERPRETIVE INFORMATION: AML Panel by FISH This test was developed and its performance characteristics determined by [facility]. It has not been cleared or approved by the US Food and Drug Administration. This test was performed in a CLIA certified laboratory and is intended for clinical purposes. EER AML Panel by FISH See Note 03/25/2024 10:34 AM SAMPLE SUPERVISOR [facility] ([facility]) Comment: Authorized individuals can access the [facility] Report using the following link: [email or web address] Performed By: [facility] [address] [place], [place] [id number] Manager Social Responsibility: Uche Morley MD, PhD CLIA Number: [id number] Other BONE MARROW SPECIMEN / Unknown Collection / Unknown 03/15/2024 9:05 AM SAMPLE SUPERVISOR 03/15/2024 9:30 AM SAMPLE SUPERVISOR Rodo Perez MD LAB - PATHOLOG Y/CYTOLOGY ORDERABLES [facility]) [address] [place] [id number], [facility] * FLOW CYTOMETRY BONE MARROW (03/15/2024 9:05 AM SAMPLE SUPERVISOR) Only the most recent of2 resultswithin the time period is included. Case Report Flow Cytometry ?Case: [id number] ? Authorizing Provider: ??Rodo Perez, ?? Collected: ? 03/15/2024 09:05 AM ? MD ? Ordering Location: ? [facility]N ACUTE ? Received: ?03/15/2024 09:30 AM ? Pathologist: ? Angeles Rosado MD ? Specimen: ?Bone Marrow ? 03/15/2024 2:40 PM [facility] Final Diagnosis Bone marrow, flow cytometric immunophenotypic analysis: - Paucicellular specimen with increased myeloblasts detected (42.4% of events) - See interpretation 03/15/2024 2:40 PM [facility] Flow Cytometry Interpretation Viability: 92%, [...] Correlation with the concurrent bone marrow biopsy ([id number]) is required. 03/15/2024 2:40 PM [facility] Flow Cytometry Results Differential Result Comment Flow Cell Count /uL 980 Total Viability % 92.0 Lymphocytes % 13 Dim CD45 Region % 55 Monocytes % 2 Granulocytes % 28 03/15/2024 2:40 PM [facility] Reason for test MDS (myelodysplastic syndrome) (HCC) 238.75 03/15/2024 2:40 PM [facility] Client Specimen ID # [id number] 03/15/2024 2:40 PM [facility] Number of markers 24 were performed. A-2 Flow CD10 A-3 Flow CD13 A-5 Flow CD20 A-11 Flow CD2 A-13 Flow CD14 A-16 Flow CD117 A-17 Flow CD11b A-18 Flow CD11c A-1 Flow CD5 A-4 Flow CD19 A-6 Flow CD33 A-7 Flow CD34 A-8 Flow CD45 A-12 Flow CD7 A-14 Flow CD56 A-15 Flow CD64 A-23 cyCD22 A-24 crKW79n A-9 [place]+CD19+ A-10 Lambda+CD19+ A-19 Flow HLA-DR A-20 Flow MPO A-21 Flow TdT A-22 cyCD3 03/15/2024 2:40 PM [facility] Pathologist Location at [facility] 03/15/2024 2:40 PM [facility] Disclaimer Test performed at [facility], [address] [place] [address], [address]. *The established laboratory minimum viability is 70%. [...] complexity clinical testing. 03/15/2024 2:40 PM [facility] Embedded Images 2:40 PM [facility] Pathology/Cytolo gy BONE MARROW SPECIMEN / Unknown Collection / Unknown 03/15/2024 9:05 AM SAMPLE SUPERVISOR 03/15/2024 9:30 AM SAMPLE SUPERVISOR Rodo Perez MD LAB - PATHOLOG Y/CYTOLOGY ORDERABLES Performing Organization Address [facility]/State/ZIP Co de Phone Number [facility] [address] [facility]. [place] [id number], [facility] [phone] * BONE MARROW BIOPSY (STL) (03/15/2024 9:05 AM SAMPLE SUPERVISOR) Only the most recent of2 resultswithin the time period is included. Case Report Bone Marrow Patholog y Report ?Case: [id number] ? Authorizing Provider: ??Rodo Perez, ?? Collected: ? 03/15/2024 09:05 AM ? MD ? Ordering Location: ? [facility]N ACUTE ? Received: ?03/15/2024 09:30 AM ? Pathologist: ? Guillermo Brown MD ? Specimens: ?? A) - Bone Marrow Clot ? B) - Bone Marrow Core ? C) - Bone Marrow Aspirate ? D) - Blood Peripheral ? 03/18/2024 4:01 PM [facility] Final Diagnosis Bone marrow, aspirate, clot section, and core biopsy: - Acute myeloid leukemia. - See description. Peripheral blood smear: - Pancytopenia. - See description. 03/18/2024 4:01 PM [facility] Comment Immunohistochemistry performed show ~30% [...] a definitive subclassification. 03/18/2024 4:01 PM [facility] Peripheral Smear Description RBC: normocytic anemia. WBC: leukopenia with absolute neutropenia and lymphopenia. No circulating blasts seen. Platelets: decreased in number. 03/18/2024 4:01 PM [facility] Bone Marrow Aspirate Differential count [...] no ring sideroblasts. 03/18/2024 4:01 PM [facility] Bone Marrow Core Biopsy and [...] peripheral blood only. 03/18/2024 4:01 PM [facility] Flow Cytometry Summary Bone marrow, flow cytometric immunophenotypic analysis ([id number]): - Paucicellular specimen with increased myeloblasts detected (42.4% of events) 03/18/2024 4:01 PM [facility] Clinical History New AML. 03/18/2024 4:01 PM [facility] Gross Description The requisition and [...] cassette B1. DF 03/18/2024 4:01 PM [facility] Pathologist Location at [facility] 03/18/2024 4:01 PM [facility] Disclaimer The performance characteristics of all immunohistochemical and indirect immunofluorescence stains (if any) cited in this report were determined by the [facility] of [facility]. Some of these tests were developed [...] attending (teaching) pathologist. 03/18/2024 4:01 PM [facility] Embedded Images 03/18/2024 4:01 PM [facility] Pathology/Cytology PERIPHERAL BLOOD / Unknown Collection / Unknown 03/15/2024 9:05 AM SAMPLE SUPERVISOR 03/15/2024 9:30 AM SAMPLE SUPERVISOR Miscellaneous samples (specimen) BONE MARROW SPECIMEN / Unknown 03/15/2024 9:05 AM SAMPLE SUPERVISOR 03/15/2024 9:30 AM SAMPLE SUPERVISOR Miscellaneous samples (specimen) SPECIMEN FROM BONE MARROW OBTAINED BY ASPIRATION / Unknown 03/15/2024 9:05 AM SAMPLE SUPERVISOR 03/15/2024 9:30 AM SAMPLE SUPERVISOR Miscellaneous samples (specimen) PERIPHERAL BLOOD / Unknown 03/15/2024 9:05 AM SAMPLE SUPERVISOR 03/15/2024 11:39 AM SAMPLE SUPERVISOR Rodo Perez MD LAB - PATHOLOG Y/CYTOLOGY ORDERABLES Performing Organization Address City/State/[facility] de Phone Number [facility] [address] [phone] * MYELOID MALIGNANCIES MUTATION PNL (03/15/2024 9:05 AM SAMPLE SUPERVISOR) Only the most recent of2 resultswithin the time period is included. Interpretation Myeloid Malignancy PNL See Note 03/28/2024 2:06 PM SAMPLE SUPERVISOR [employer] ([facility]) Comment: Myeloid Malignancies Mutation Panel NGS Submitted diagnosis or diagnosis under consideration for variant interpretation: Myelodysplastic syndrome, unspecified Note: Prior NGS testing performed on this patient (most recent INVOLTA accession [id number]) was reviewed in conjunction with the current case to compare molecular variants reported. The previously reported molecular variants DNMT3A, IDH1, and CUX1 are again detected in the current study. In addition, new molecular variants in STAG2, BCOR, JAK2, and CEBPA are now detected. TIER 1: Variants of Known Clinical Significance in Hematologic Malignancies 1. IDH1 c.394C>A, p.Nqc722Pyc (NM_[id number]) VAF: 38.4% IDH1 encodes an enzyme that catalyzes the conversion of isocitrate to alpha-ketoglutarate in the citric acid cycle (23). Somatic mutations of IDH1 are found in 4-12% of patients with myelodysplastic syndrome (MDS).This mutation has been reported in hematologic malignancies (4). The prognostic significance of mutated IDH1 in MDS is uncertain (20) (27) (7) (14) (19) (32). 2. DNMT3A c.2206C>T, p.Uyu131Hbc (NM_[id number]) VAF: 42.2% DNMT3A encodes a DNA [...] stem cell transplantation (2). 3. DNMT3A c.2407A>G, p.Ext710Lrx (NM_[id number]) VAF: 38.8% This mutation has also been reported in hematologic malignancies (4). 4. JAK2 c.1849G>T, p.Buq696Hoi (NM_004972.4) VAF: 14.4% JAK2 encodes a non-receptor protein tyrosine kinase that regulates STAT emt b factors in response to cytokine receptor signaling (13). JAK2 mutations have been reported in 3-6% of patients with MDS (6) (15) (31). This JAK2 mutation (p.Qrk204Xsx) has also been reported in approximately 10-25% of patients with myelodysplastic/myeloproliferative neoplasms (MDS/MPN) (31) (21). This particular JAK2 mutation occurs in the pseudokinase (JH2) domain and leads to activation of the NOLAN-STAT pathway signaling. The prognostic significance of JAK2 mutations in MDS is unclear (6). 5. STAG2 c.1840C>T, p.Crr580* (NM_[id number]) VAF: 31.7% STAG2 encodes a subunit [...] unmutated cohesin genes (29). 6. BCOR c.3649C>T, p.Zyc2606* (NM_[id number]) VAF: 9.6% BCOR encodes a transcriptional corepressor that interacts with BCL-6 and histone deacetylases (HDACs) (5) (12). Mutations in BCOR are seen in 4% of patients with MDS (5) (11). BCOR mutations in MDS are often frameshift and nonsense mutations that result in baoa-iy-yynwagvk (5) (11). This mutation is predicted to alter the normal function of BCOR. BCOR mutations are associated with a higher incidence of AML transformation in MDS patients and shorter overall survival in MDS patients (5) (11) (16). 7. BCOR c.635_638del, p.Ncl769Pwphu*3 (NM_[id number]) VAF: 6.2% This mutation is also predicted to alter the normal function of BCOR. TIER 2: Variants of Unknown Clinical Significance in Hematologic Malignancies 1. CEBPA c.1074_*9del, p.*359Cysext*58 (NM_004364.5) VAF: 4.7% CEBPA encodes a protein that is a member of the basic region leucine zipper family of emt b factors (18). Somatic mutations of CEBPA are [...] if any, is uncertain. 2. CUX1 c.3085G>A, p.Xzb6573Ebx (NM_181552.4) VAF: 44.8% This variant has been rarely reported in hematologic malignancies (1) (10), to the best of our knowledge. References 1: Lynnette P, ??Emmanuelle B, ??Zhanna CLARK et al, Assessment of Minimal Residual Disease by Next Generation Sequencing in Peripheral Blood as a Complementary Tool for Personalized Transplant Monitoring in Myeloid Neoplasms. J Clin Med 2020. PMID:06803875 2: Virginie R, ??Juan HERNANDEZ, ??Ulises Kim et al, Somatic mutations predict poor outcome in patients with myelodysplastic syndrome after hematopoietic stem-cell transplantation. J Clin Oncol 2014. PMID:80681320 3: cBioPortal: http://www.cbioportal.org/ 4: COSMIC: https://cancer.vipin.ac.uk/cosmic 5: Braulio F, ??Yu V, ??Camilla Y et al, BCOR and BCORL1 mutations in myelodysplastic syndromes and related disorders. Blood 2013. PMID:21588227 6: Bill M, ??Jennifer C, ??Víctor L et al, JAK2 Mutations Are Rare and Diverse in Myelodysplastic Syndromes: Case Series and Review of the Literature. Hematol Rep 2022. PMID:12472716 7: Jahaira CD, ??Kamla E, ??Mary Mason et al, IDH1 and IDH2 mutations in myelodysplastic syndromes and role in disease progression. Leukemia 2016. PMID:18593391 8: Asiya I, ??Day C, ??Pichler MM et al, Frequency, onset and clinical impact of somatic DNMT3A mutations in therapy-related and secondary acute myeloid leukemia. Haematologica 2012. PMID:07869610 9: Nuha O, ??Idania Amador, ??Luanne Payne et al, CEBPA polymorphisms and mutations in patients with acute myeloid leukemia, myelodysplastic syndrome, multiple myeloma and non-Hodgkin's lymphoma. Blood Cells Mol Dis 2008. PMID:62819249 10: Cassandra Kim, ??Cornell Payne, ??Alexis Valdivia et al, DNA methylation epitypes highlight underlying developmental and disease pathways in acute myeloid leukemia. Genome Res 2020. PMID:73416472 11: Ivan V, ??Jenna E, ??Alondra DEMPSEY et al, Whole-exome sequencing identifies somatic mutations of BCOR in acute myeloid leukemia with normal karyotype. Blood 2011. PMID:13069684 12: Lin RUEDA, ??Yashira W, ??Darcie Estrada et al, BCoR, a novel corepressor involved in BCL-6 repression. Genes Dev 2000. PMID:70146920 13: Fabian SS, ??Jen SJ, ??Amandeep MORRISON et al, Nolan/STAT pathways in cytokine signaling and myeloproliferative disorders: approaches for targeted therapies. Genes Cancer 2010. PMID:23991048 14: Jose J O, ??Charity V, ??Grayson Stroud et al, Mutations of IDH1 and IDH2 genes in early and accelerated phases of myelodysplastic syndromes and MDS/myeloproliferative neoplasms. Leukemia 2010. PMID:40511749 15: Malaika M, ??Catherine C, ??Ahsan Talavera et al, Molecular analysis of myelodysplastic syndrome with isolated deletion of the long arm of chromosome 5 reveals a specific spectrum of molecular mutations with prognostic impact: a study on 123 patients and 27 genes. Haematologica 2017. PMID:66969430 16: Gregoria BAR, ??Meliton T, ??Valerie Payne et al, Spectrum and prognostic relevance of delivery motorcycle driver gene mutations in acute myeloid leukemia. Blood 2016. PMID:21423911 17: Nicol T, ??Mel BU, ??Milton P et al, Dominant-negative mutations of CEBPA, encoding CCAAT/enhancer binding protein-alpha (C/EBPalpha), in acute myeloid leukemia. Yusra Emely 2001. PMID:16198298 18: Nicol T, Mel BU, Complexity of CEBPA dysregulation in human acute myeloid leukemia. Clin Cancer Res 2009. PMID:93012692 19: Nargis E, ??Jose M, ??Hugh Stroud et al, Clinical and biological implications of delivery motorcycle driver mutations in myelodysplastic syndromes. Blood 2013. PMID:73145390 20: Eileen MURPHY, ??Rajinder CHRISTY, ??Juju OTERO et al, Differential prognostic effect of IDH1 versus IDH2 mutations in myelodysplastic syndromes: a [facility] study of 277 patients. Leukemia 2012. PMID:33647785 21: Eileen MURPHY, George TL, Genomics of myelodysplastic syndrome/myeloproliferative neoplasm overlap syndromes. Hematology Am Soc Hematol Educ Program 2020. PMID:94493088 22: Preudhomme C, ??Sagot C, ??Heather N et al, Favorable prognostic significance of CEBPA mutations in patients with de elinor acute myeloid leukemia: a study from the Acute Leukemia [employer] (JOSE). Blood 2002. PMID:81423719 23: Bulmaro BENTON, Josse H, Isocitrate dehydrogenase 1 and 2 mutations in cancer: alterations at a crossroads of cellular metabolism. J Natl Cancer Inst 2010. PMID:04785408 24: Jose A, ??Ivan V, ??Yudi U et al, [place] analysis of DNMT3A mutations in hematological malignancies. Leukemia 2013. PMID:71269455 25: Kim , ??Lisa-Hussein O, ??Arnulfo REINOSO et al, The role of mutations in epigenetic regulators in myeloid malignancies. Yusra Rev Cancer 2012. PMID:42250636 26: Taube F, ??Hubert ISSA, ??Efrem M et al, CEBPA mutations in 4708 patients with acute myeloid leukemia: differential impact of bZIP and TAD mutations on outcome. Blood 2021. PMID:56069061 27: Thol F, ??Roverto EM, ??Sam Lynn et al, IDH1 mutations in patients with myelodysplastic syndromes are associated with an unfavorable prognosis. Haematologica 2010. PMID:47940453 28: Thol F, ??Lisa C, ??Luedeking A et al, Rare occurrence of DNMT3A mutations in myelodysplastic syndromes. Haematologica 2011. PMID:46771448 29: Josey S, ??Liam SAAB, ??Joan Weller et al, Genetic alterations of the cohesin complex genes in myeloid malignancies. Blood 2014. PMID:08554023 30: Barrett MERRITT, ??Tono L, ??Jossue Amador et al, Recurrent DNMT3A mutations in patients with myelodysplastic syndromes. Leukemia 2011. PMID:69106863 31: Lawrence Camargo, Juan Diego Kim, Comparison and Implications of Mutational Profiles of Myelodysplastic Syndromes, Myeloproliferative Neoplasms, and Myelodysplastic/Myeloproliferative Neoplasms: A [place]-Analysis. Front Oncol 2020. PMID:68431301 32: Cornell Flower, ??Cornell Mason, ??Yuval Flower et al, IDH1 Mutation Is an Independent Inferior Prognostic Indicator for Patients with Myelodysplastic Syndromes. Acta Haematol 2017. PMID:46232806 33: Ochoa L, Gabriella R, Hieu ALBERTS, DNMT3A in haematological malignancies. Yusra Rev Cancer 2015. PMID:66476599 This result has been reviewed and approved by Jannette Dutta M.D. Low coverage regions: Listed below are regions where the average sequencing depth (number of times a particular nucleotide is sequenced) in at least 20% of the okehik-wr-mvqakhuo is less than our stringent cutoff of [...] NOTCH1; NPM1*; NRAS; NSD1; PHF6; PIGA; PPM1D; DJSS85R; PRPF8; PTPN11; RAD21; RUNX1; SAMD9; SAMD9L; SETBP1; [...] developed and its performance characteristics determined by [facility]. It has not been cleared or approved by the U.S. Food and Drug Administration. This test was performed in a CLIA-certified laboratory and is intended for clinical purposes. Myeloid Malignancy Dx Mds Unspec 03/28/2024 2:06 PM [facility] [email or web address] ([facility]) Myeloid Malignancy Panel Specimen Bone Marrow 03/28/2024 2:06 PM [facility] [email or web address] [facility]) EER Myeloid Malignancy See Note 03/28/2024 2:06 PM [facility] [email or web address] [facility]) Comment: Authorized individuals can access the INVOLTA Enhanced Report using the following link: [email or web address] Performed By: [facility] [address] [place] [address] Manager Social Responsibility: Uche Morley MD, PhD CLIA Number: [id number] Other BONE MARROW SPECIMEN / Unknown Collection / Unknown 03/15/2024 9:05 AM SAMPLE SUPERVISOR 03/15/2024 9:30 AM SAMPLE SUPERVISOR Rodo Perez MD LAB - PATHOLOG Y/CYTOLOGY ORDERABLES Performing Organization Address City/[facility]/ZIP Co de Phone Number [facility] [employer] ([facility]) [address] * LAB MISC TEST (NOT BLOOD) (03/15/2024 9:05 AM SAMPLE SUPERVISOR) Only the most recent of3 resultswithin the time period is included. Test Name Tp53 03/21/2024 12:06 PM SAMPLE SUPERVISOR [facility] REF LAB NON INTERF Test Result See Scanned Report 03/21/2024 12:06 PM SAMPLE SUPERVISOR [facility] REF LAB NON INTERF Comment Ref Lab 03/21/2024 12:06 PM SAMPLE SUPERVISOR [facility] REF LAB NON INTERF Other BONE MARROW SPECIMEN / Unknown Collection / Unknown 03/15/2024 9:05 AM SAMPLE SUPERVISOR 03/15/2024 9:30 AM SAMPLE SUPERVISOR Rodo Perez MD LAB - BODY FLU ID ORDERABLES Performing Organization Address [facility]/ZIP Co de Phone Number [facility] REF LAB NON INTERF [address] [place] [address], [facility] [phone] * FISH PML/DANTE PANEL (03/15/2024 9:05 AM SAMPLE SUPERVISOR) Only the most recent of2 resultswithin the time period is included. EER PML/DANTE Translocation by Fish See Note 03/17/2024 4:41 PM SAMPLE SUPERVISOR [facility] [employer] ([facility]) Comment: Authorized individuals can access the INVOLTA Enhanced Report using the following link: [email or web address] Performed By: [facility] [address] [place] [id number] Manager Social Responsibility: Uche Morley MD, PhD CLIA Number: [id number] PML/DANTE Translocation by FISH See Note 03/17/2024 4:41 PM [facility]AMPLE SUPERVISOR [employer] [facility]) Comment: Test Performed: PML-DANTE Translocation by FISH (FISH PML) Specimen Type: Bone Marrow Indication for Testing: MDS RESULT Normal FISH Result t(15;17) PML::DANTE ??Fusion: ??not detected INTERPRETATION There was no evidence of PML::DANTE fusion due to translocation (15;17)(q24;q21). This analysis was performed with the PML/DANTE probes (Parantez). A total of 200 cells were scored. Cytogenomic Nomenclature (ISCN): nuc nereyda(PML,DANTE)x2[200' This result has been reviewed and approved by Nabila Gonzalez, PhD, [facility] A portion of this analysis was performed at the following location(s): [facility] Site -CO#2 INTERPRETIVE INFORMATION: PML/DANTE Translocation by FISH This test was developed and its performance characteristics determined by [facility]. It has not been cleared or approved by the US Food and Drug Administration. This test was performed in a CLIA certified laboratory and is intended for clinical purposes. Other BONE MARROW SPECIMEN / Unknown Collection / Unknown 03/15/2024 9:05 AM SAMPLE SUPERVISOR 03/15/2024 9:30 AM SAMPLE SUPERVISOR Rodo Perez MD LAB - PATHOLOG Y/CYTOLOGY ORDERABLES [facility] [employer] [facility]) [address] [place] [address], [facility] * CHROMOSOME ANALYSIS BONE MARROW PANEL (03/15/2024 9:05 AM SAMPLE SUPERVISOR) Chromosome Analysis Bone Marrow See Note Normal 03/22/2024 11:01 AM SAMPLE SUPERVISOR [email or web address] ([facility]) Comment: Test Performed: Chromosome Analysis Specimen Type: [...] study. NOTE: Concurrent FISH PML performed under [facility] accession [id number] was NORMAL. FISHAML and FISH MDS P are PENDING and will be reported under [facility] accessions [id number] and [id number]. This result has been reviewed and approved by Randall Yun, PhD, [facility] A portion of this analysis was performed at the following location(s): [facility]-[place]#2 [facility] -[place]#3 [facility]-[place]#4 [facility]-[place]#1 INTERPRETIVE INFORMATION: Chromosome Analysis, Bone Marrow This test was developed and its performance characteristics determined by [facility]. It has not been cleared or approved by the US Food and Drug Administration. This test was performed in a CLIA certified laboratory and is intended for clinical purposes. EER Chromosome Analysis Bone Marrow See Note 03/22/2024 11:01 AM [facility] [email or web address] ([facility]) Comment: Authorized individuals can access the [facility] Enhanced Report using the following link: [email or web address] Performed By: [facility] [address] [place] [address] Manager Social Responsibility: Uche Morley MD, PhD CLIA Number: [id number] Bone marrow BONE MARROW SPECIMEN / Unknown 03/15/2024 9:05 AM SAMPLE SUPERVISOR 03/15/2024 9:30 AM SAMPLE SUPERVISOR Rodo Perez MD LAB - PATHOLOG Y/CYTOLOGY ORDERABLES [facility] ([facility]) [address] [place] [address], [facility] * FLOW CYTOMETRY BLOOD PROFILE (03/14/2024 10:32 AM SAMPLE SUPERVISOR) Case Report Flow Cytometry ?Case: [id number] ? Authorizing Provider: ??Ghanshyam Dewey PA-C ? Collected: ? 03/14/2024 10:32 AM ? Ordering Location: ? [facility] 7N ACUTE ? Received: ?03/14/2024 01:49 PM ? Pathologist: ? Angeles Rosado MD ? Specimen: ?Blood ? 03/14/2024 4:58 PM [facility] Final Diagnosis Peripheral blood, flow cytometric immunophenotypic analysis: - 1.2% myeloblasts detected - No evidence of a monoclonal B-cell population - See interpretation 03/14/2024 4:58 PM [facility] Flow Cytometry Results Differential Result Comment WBC Count /uL 1,200 Total Viability % 100.0 Lymphocytes % 80 Dim CD45 Region % 4 Monocytes % 4 Granulocytes % 13 03/14/2024 4:58 PM [facility] Flow Cytometry Interpretation Viability: 100% B-cells: polytypic, kappa:lambda ratio 1.1:1. Blasts: 1.2% of events are myeloblasts. Monocytes are mature. A peripheral blood smear prepared from the flow cytometry specimen has been reviewed for vice president quality assurance purposes. 03/14/2024 4:58 PM [facility] Reason for test MDS (myelodysplastic syndrome) (HCC) 238.75 03/14/2024 4:58 PM [facility] Client Specimen ID # [id number] 03/14/2024 4:58 PM [facility] Pathologist Location at [facility] 03/14/2024 4:58 PM [facility] Disclaimer Test performed at [facility], [address] [place] [address], [address]. *The established laboratory minimum viability is 70%. [...] complexity clinical testing. 03/14/2024 4:58 PM [facility] Embedded Images 4:58 PM [facility] Number of markers 19 were performed. A-2 Flow CD10 A-3 Flow CD13 A-5 Flow CD20 A-11 Flow CD2 A-13 Flow CD14 A-16 Flow CD117 A-17 Flow CD11b A-18 Flow CD11c A-1 Flow CD5 A-4 Flow CD19 A-6 Flow CD33 A-7 Flow CD34 A-8 Flow CD45 A-12 Flow CD7 A-14 Flow CD56 A-15 Flow CD64 A-9 [place]+CD19+ A-10 Lambda+CD19+ A-19 Flow HLA-DR 03/14/2024 4:58 PM SAMPLE SUPERVISOR [facility] Blood BLOOD SPECIMEN / Unknown Lab Venipuncture / Unknown 03/14/2024 10:32 AM SAMPLE SUPERVISOR 03/14/2024 1:49 PM SAMPLE SUPERVISOR Ghanshyam Dewey PA-C LAB - PATHOLOGY/CYTO LOGY ORDERABLES [facility] [address] [phone] * CYTOMEGALOVIRUS (CMV) QUANTITATIVE PLASMA (03/13/2024 11:26 PM SAMPLE SUPERVISOR) Pathologist [facility] CMV Quant by PCR, Interp Not detected Not detected 03/14/2024 9:00 AM SAMPLE SUPERVISOR [facility] Blood BLOOD SPECIMEN / Unknown Venipuncture / Unknown 03/13/2024 11:26 PM SAMPLE SUPERVISOR 03/13/2024 11:37 PM SAMPLE SUPERVISOR Narrative [facility] - 03/14/2024 9:00 AM SAMPLE SUPERVISOR The Cytomegalovirus (CMV) DNA analysis utilized a [...] approved test methodology Bruce sharon CMV. Ted Soelr MD LAB - CHEMISTRY OR DERABLES [facility] [address] [place], [address] [phone] * QUINN-TOVAR VIRUS QUANT BLOOD STL (03/13/2024 11:26 PM SAMPLE SUPERVISOR) [facility] EBV Quant by PCR, Interp Not detected Not detected 03/14/2024 8:56 AM SAMPLE SUPERVISOR [facility] Specimen Type Plasma 03/14/2024 8:56 AM SAMPLE SUPERVISOR [facility] Blood BLOOD SPECIMEN / Unknown Venipuncture / Unknown 03/13/2024 11:26 PM SAMPLE SUPERVISOR 03/13/2024 11:37 PM SAMPLE SUPERVISOR Narrative [facility] - 03/14/2024 8:56 AM SAMPLE SUPERVISOR The Quinn-Tovar viral (EBV) DNA analysis utilized [...] DERABLES [facility] [address] [place] [address], [facility] [phone] * D-DIMER (03/13/2024 11:26 PM SAMPLE SUPERVISOR) [facility] D-Dimer Quantitative <0.27 <=0.50 mcg/mL FEU 03/14/2024 12:00 AM SAMPLE SUPERVISOR [facility] Comment: In the absence of [...] Unknown Venipuncture / Unknown 03/13/2024 11:26 PM SAMPLE SUPERVISOR 03/13/2024 11:37 PM SAMPLE SUPERVISOR Ted Soler MD LAB - COAGULATION ORDERABLES Performing Organization Address [facility]/State/ZIP Co de Phone Number [facility] [address] [place] [address], [facility] [phone] * FIBRINOGEN ACTIVITY (03/13/2024 11:26 PM SAMPLE SUPERVISOR) Fibrinogen Clauss 362 200 - 400 mg/dL 03/13/2024 11:59 PM SAMPLE SUPERVISOR [facility] Blood BLOOD SPECIMEN / Unknown Venipuncture / Unknown 03/13/2024 11:26 PM SAMPLE SUPERVISOR 03/13/2024 11:37 PM SAMPLE SUPERVISOR Ted Soler MD LAB - COAGULATION ORDERABLES [facility] [address] [place] [address], [facility] [phone] * FISH AML+MDS PANEL BLOOD OR BONE MARROW (03/04/2024 4:13 PM SAMPLE SUPERVISOR) FISH AML with MDS, Therapy-Rltd AML See Note Normal 03/19/2024 4:32 PM SAMPLE SUPERVISOR [email or web address] ([facility]) Comment: Test Performed: Acute Myelogenous Leukemia (AML) [...] with the Therapy-Related AML panel probes D5S23/EGR1, D7Z1/O6U154, and MLL (KMT2A) (Panono). A total of 200 cells were scored for each probe. Cytogenomic Nomenclature (ISCN): nuc nereyda(D5S23,EGR1,D7Z1,K6A664,KMT2A)x2[200' This result has been reviewed and approved by Charles Pablo MD, [facility] INTERPRETIVE INFORMATION: AML with MDS, Therapy-Related AML, FISH This test was developed and its performance characteristics determined by [employer] [facility] [employer]. It has not been cleared or approved by the US Food and Drug Administration. This test was performed in a CLIA certified laboratory and is intended for clinical purposes. EER AML with MDS, Therapy-Rltd AML FISH See Note 03/19/2024 4:32 PM SAMPLE SUPERVISOR [facility] [employer] ([facility]) Comment: Authorized individuals can access the [facility] Enhanced Report using the following link: [email or web address] Performed By: [facility] [address] [place] [address] Manager Social Responsibility: Uche Morley MD, PhD CLIA Number: [id number] Other BLOOD SPECIMEN / Unknown Collection / Unknown 03/04/2024 4:13 PM SAMPLE SUPERVISOR 03/04/2024 4:23 PM SAMPLE SUPERVISOR Cindy Garcia MD LAB - PATHOLOGY/CYTO LOGY ORDERABLES [facility] [employer] [facility]) [address] [place], [place] [address] * HLA TYPING LOW/HIGH RESOLUTION DPB1 (03/04/2024 4:13 PM SAMPLE SUPERVISOR) Typ DNA LR DPB1 Allele #1 *04 04/29/2024 2:56 PM SAMPLE SUPERVISOR [facility] ([facility]) Typ DNA LR DPB1 Allele #2 *11 04/29/2024 2:56 PM SAMPLE SUPERVISOR [facility] ([facility]) Typ DNA HR DPB1 Allele #1 *04:01:01G 04/29/2024 2:56 PM SAMPLE SUPERVISOR [facility] ([facility]) Typ DNA HR DPB1 Allele #2 *11:01:01G 04/29/2024 2:56 PM SAMPLE SUPERVISOR [facility] ([facility]) Test Methodology RTPCR/NGS 04/29/19 2:56 PM SAMPLE SUPERVISOR [facility] ([facility]) Date Results Entered [id number] 04/29/2024 2:56 PM SAMPLE SUPERVISOR [facility] ([facility]) Comment: Methodology - Next Generation Sequencing ?? This test was developed and its performance characteristics determined by ?? the [facility]. ??It has not been cleared [...] complexity ?? clinical laboratory testing. ??CLIA ID# [id number] ?? Performed at: [facility], [address] [place] [address] ?? [place], [place] ?? [address] ?? Picking Belt Operator: Sandeep Jerry, Ph.D., D([facility]), Blood BLOOD SPECIMEN / Unknown Lab Venipuncture / Unknown 03/04/2024 4:13 PM SAMPLE SUPERVISOR 03/05/2024 9:56 AM SAMPLE SUPERVISOR Cindy Garcia MD LAB - BLOOD BANK ORD ERABLES Performing Organization Address City/State/[facility] Co de Phone Number [facility] ([facility]) [address] * HLA TYPING DNA LOW RESOLUTION DR,DQ (03/04/2024 4:13 PM SAMPLE SUPERVISOR) DR DQ Low Resolution DRB1-1 *07 04/29/2024 2:56 PM SAMPLE SUPERVISOR [facility] ([facility]) DR DQ Low Resolution DQB1-1 *02 04/29/2024 2:56 PM SAMPLE SUPERVISOR [facility] ([facility]) DR DQ Low Resolution DRB3-1 Negative 04/29/2024 2:56 PM SAMPLE SUPERVISOR [facility] ([facility]) DR DQ Low Resolution DRB3-2 Negative 04/29/2024 2:56 PM SAMPLE SUPERVISOR [facility] ([facility]) DR DQ Low Resolution DRB4-1 *01 04/29/2024 2:56 PM SAMPLE SUPERVISOR [facility] ([facility]) DR DQ Low Resolution DRB4-2 Negative 04/29/2024 2:56 PM SAMPLE SUPERVISOR [facility] ([facility]) DR DQ Low Resolution DRB5-1 Negative 04/29/2024 2:56 PM SAMPLE SUPERVISOR [facility] ([facility]) DR DQ Low Resolution DRB5-2 Negative 04/29/2024 2:56 PM SAMPLE SUPERVISOR [facility] ([facility]) DR DQ Low Resolution Methodology Real Time PCR 04/29/2024 2:56 PM SAMPLE SUPERVISOR [facility] ([facility]) DR DQ Low Resolution test date [id number] 04/29/2024 2:56 PM SAMPLE SUPERVISOR [facility] ([facility]) Comment: Methodology - Real-Time PCR ?? This test was developed and its performance characteristics determined by ?? the [facility]. ??It has not been cleared [...] complexity ?? clinical laboratory testing. ??CLIA ID# [id number] ?? Performed at: [facility], [address] [place] [address] ?? [place], [place] ??[address] ?? Picking Belt Operator: Sandeep Jerry, Ph.D., D([facility]), Blood BLOOD SPECIMEN / Unknown Lab Venipuncture / Unknown 03/04/2024 4:13 PM SAMPLE SUPERVISOR 03/05/2024 9:56 AM SAMPLE SUPERVISOR Cindy Garcia MD LAB - BLOOD BANK ORD ERABLES [facility] ([facility]) [address] [place] [address] * HLA TYPING DNA LOW RESOLUTION A,B,C (03/04/2024 4:13 PM SAMPLE SUPERVISOR) [facility] ABC DNA A1 *02 04/29/2024 2:56 PM SAMPLE SUPERVISOR [facility] ([facility]) ABC DNA A2 *30 04/29/2024 2:56 PM SAMPLE SUPERVISOR [facility] ([facility]) ABC DNA B1 *13 04/29/2024 2:56 PM SAMPLE SUPERVISOR [facility] ([facility]) ABC DNA B2 *44 04/29/2024 2:56 PM SAMPLE SUPERVISOR [facility] ([facility]) ABC DNA BW1 4 04/29/2024 2:56 PM SAMPLE SUPERVISOR [facility] ([facility]) ABC DNA BW2 4 04/29/2024 2:56 PM SAMPLE SUPERVISOR [facility] ([facility]) ABC DNA C1 *06 04/29/2024 2:56 PM SAMPLE SUPERVISOR [facility] ([facility]) ABC DNA C2 *16 04/29/2024 2:56 PM SAMPLE SUPERVISOR [facility] ([facility]) ABC DNA Methodology Real Time PCR 04/29/2024 2:56 PM SAMPLE SUPERVISOR [facility] ([facility]) ABC DNA Test Date [id number] 2:56 PM SAMPLE SUPERVISOR [facility] ([facility]) Comment: Methodology - Real-Time PCR ?? This test was developed and its performance characteristics determined by ?? the [facility]. ??It has not been cleared [...] complexity ?? clinical laboratory testing. ??CLIA ID# [id number] ?? Performed at: [facility], [address] [place], [place] [address]ta e ?? [place], [place] ??[phone] ?? Picking Belt Operator: Sandeep Jerry, Ph.D., D([facility]), Blood BLOOD SPECIMEN / Unknown Lab Venipuncture / Unknown 03/04/2024 4:13 PM SAMPLE SUPERVISOR 03/05/2024 9:56 AM SAMPLE SUPERVISOR Cindy Garcia MD LAB - BLOOD BANK ORD ERABLES Performing Organization Address City/[facility]/ZIP Co de Phone Number [facility] ([employer]) [address] * HLA TYPING DNA HIGH RESOLUTION DR (03/04/2024 4:13 PM SAMPLE SUPERVISOR) Blood BLOOD SPECIMEN / Unknown Lab Venipuncture / Unknown 03/04/2024 4:13 PM SAMPLE SUPERVISOR 03/05/2024 9:56 AM SAMPLE SUPERVISOR Narrative [facility] ([employer]) - 04/29/2024 4:00 PM SAMPLE SUPERVISOR See Scanned Report Cindy Garcia MD LAB - BLOOD BANK ORD ERABLES Performing Organization Address [facility] Co de Phone Number [facility] ([employer]) [facility] * HLA TYPING DNA HIGH RESOLUTION DQ (03/04/2024 4:13 PM SAMPLE SUPERVISOR) Blood BLOOD SPECIMEN / Unknown Lab Venipuncture / Unknown 03/04/2024 4:13 PM SAMPLE SUPERVISOR 03/05/2024 9:56 AM SAMPLE SUPERVISOR Narrative [facility] ([employer]) - 04/29/2024 4:00 PM SAMPLE SUPERVISOR See Scanned Report Cindy Garcia MD LAB - BLOOD BANK ORD ERABLES Performing Organization Address [facility] Co de Phone Number [facility] ([employer]) [address] * HLA TYPING DNA HIGH RESOLUTION B (03/04/2024 4:13 PM SAMPLE SUPERVISOR) Blood BLOOD SPECIMEN / Unknown Lab Venipuncture / Unknown 03/04/2024 4:13 PM SAMPLE SUPERVISOR 03/05/2024 9:56 AM SAMPLE SUPERVISOR Narrative [facility] ([employer]) - 04/29/2024 4:00 PM SAMPLE SUPERVISOR See Scanned Report Cindy Garcia MD LAB - BLOOD BANK ORD ERABLES Performing Organization Address City/[facility]/ZIP Co de Phone Number [facility] ([employer]) [address] [place] [address], [facility] * HLA TYPING DNA HIGH RESOLUTION A (03/04/2024 4:13 PM SAMPLE SUPERVISOR) Blood BLOOD SPECIMEN / Unknown Lab Venipuncture / Unknown 03/04/2024 4:13 PM SAMPLE SUPERVISOR 03/05/2024 9:56 AM SAMPLE SUPERVISOR Narrative [facility] ([facility]) - 04/29/2024 4:01 PM SAMPLE SUPERVISOR See Scanned Report Cindy Garcia MD LAB - BLOOD BANK ORD [employer] Performing Organization Address [facility] Co de Phone Number [facility] ([facility]) [address] [place] [address] * HLA TYPING DNA HIGH RESOLUTION C (03/04/2024 4:13 PM SAMPLE SUPERVISOR) Blood BLOOD SPECIMEN / Unknown Lab Venipuncture / Unknown 03/04/2024 4:13 PM SAMPLE SUPERVISOR 03/05/2024 9:56 AM SAMPLE SUPERVISOR Narrative [facility] ([facility]) - 04/29/2024 4:01 PM SAMPLE SUPERVISOR See Scanned Report Cindy Garcia MD LAB - BLOOD BANK ORD Pianpian Performing Organization Address [facility] de Phone Number [facility] ([facility]) [address] [place] [address] * CHROMOSOME ANALYSIS LEUKEMIA BLD (03/04/2024 4:13 PM SAMPLE SUPERVISOR) [facility] Chromosome Analysis Leukemic Blood See Note Normal 03/23/2024 12:39 PM SAMPLE SUPERVISOR [email or web address] ([facility]) Comment: Test Performed: Chromosome Analysis Specimen Type: [...] FISH AML/PML and TAML MDS performed under [facility] accessions [id number] and [id number] were NORMAL. This result has been reviewed and approved by Margaret Roberson, PhD, [facility] INTERPRETIVE INFORMATION: Chromosome Analysis, ?Leukemic Blood This test was developed and its performance characteristics determined by [facility]. It has not been cleared or approved by the US Food and Drug Administration. This test was performed in a CLIA certified laboratory and is intended for clinical purposes. EER Chromosome Analysis Leukemic See Note 03/23/2024 12:39 PM SAMPLE SUPERVISOR [email or web address] ([facility]) Comment: Authorized individuals can access the [employer] Enhanced Report using the following link: [email or web address] Performed By: [facility] [address] [place] [address] Manager Social Responsibility: Uche Morley MD, PhD CLIA Number: [id number] Blood BLOOD SPECIMEN / Unknown Lab Venipuncture / Unknown 03/04/2024 4:13 PM SAMPLE SUPERVISOR 03/22/2024 5:28 PM SAMPLE SUPERVISOR Cindy Garcia MD LAB - PATHOLOGY/CYTO LOGY ORDERABLES [email or web address] [facility]) [address] [place], [place] [address] * HIV-1 HIV-2 ANTIBODY + HIV P24 AG PANEL (New on 08/24) (03/04/2024 4:13 PM SAMPLE SUPERVISOR) Pathologist [facility] HIV Antigen/Antibod y 1 & 2 Non-reacti ve Non-react carlos 03/04/2024 5:12 PM SAMPLE SUPERVISOR [facility] Comment:No Laboratory eviden ce of HIV infection. Blood BLOOD SPECIMEN / Unknown Lab Venipuncture / Unknown 03/04/2024 4:13 PM SAMPLE SUPERVISOR 03/04/2024 4:23 PM SAMPLE SUPERVISOR Cindy Garcia MD LAB - CHEMISTRY CHELI MONREAL [facility] [address] [address], [facility] [phone] * BCR-ABL1 CML+AML PCR QUANT PNL (03/04/2024 4:13 PM SAMPLE SUPERVISOR) Pathologist [facility] Interpretation TNP 03/13/2024 5:08 PM SAMPLE SUPERVISOR [facility] ([facility]) Comment: Unable to obtain results. Repeated efforts to analyze this specimen have been unsuccessful. LOW CONTROL GENE COPY NUMBER INDICATED SPECIMEN DEGRADATION. Director Review Comment 5:08 PM SAMPLE SUPERVISOR [facility] ([facility]) Comment: Dawood Sarabia, PhD, [facility] ?Director, Molecular Oncology ?[facility] ?[place] [address] ? Background Comment 03/13/2024 5:08 PM SAMPLE SUPERVISOR [facility] ([facility]) Comment: This assay can detect three different [...] as indicated. Methodology Comment 03/13/2024 5:08 PM SAMPLE SUPERVISOR [facility] ([facility]) Comment: Total RNA is isolated from the [...] developed and its performance characteristics determined by [facility]. It has not been cleared or approved by the Food and Drug Administration. Blood BLOOD SPECIMEN / Unknown Lab Venipuncture / Unknown 03/04/2024 4:13 PM SAMPLE SUPERVISOR 03/04/2024 4:24 PM SAMPLE SUPERVISOR N[facility]ative [facility]) - 03/13/2024 5:08 PM SAMPLE SUPERVISOR Performed at: ??01 - [facility] [address] [place], [place] ??[id number] Picking Belt Operator: Cinthya Roper [facility], Phone: ??[phone] Performed at: ??02 - [facility] [address] [place], [place] ??[id number] Picking Belt Operator: Cinthya Roper [facility], Phone: ??[phone] Cindy Garcia MD LAB - CHEMISTRY CHELI MONREAL [facility] ([facility]) [address] [place] [address], [facility] * TSH REFLEX FREE T4 (03/04/2024 4:13 PM SAMPLE SUPERVISOR) Pathologist [facility] TSH 0.961 0.350 - 4.940 uIU/mL 03/04/2024 5:29 PM SAMPLE SUPERVISOR [facility] Blood BLOOD SPECIMEN / Unknown Lab Venipuncture / Unknown 03/04/2024 4:13 PM SAMPLE SUPERVISOR 03/04/2024 4:27 PM SAMPLE SUPERVISOR Cindy Garcia MD LAB - CHEMISTRY CHELI MONREAL [facility] [address] [place] [address], [place] [phone] * RHEUMATOID FACTOR BLOOD QUANTITATIVE (03/04/2024 4:13 PM SAMPLE SUPERVISOR) Pathologist [facility] Rheumatoid Factor <15 <30 IU/mL 03/04/2024 4:57 PM SAMPLE SUPERVISOR [facility] Rheumatoid Factor Screen Negative Negative 03/04/2024 4:57 PM SAMPLE SUPERVISOR [facility] Blood BLOOD SPECIMEN / Unknown Lab Venipuncture / Unknown 03/04/2024 4:13 PM SAMPLE SUPERVISOR 03/04/2024 4:23 PM SAMPLE SUPERVISOR Cindy Garcia MD LAB - CHEMISTRY CHELI MONREAL Performing Organization Address City/[facility]/ZIP Co de Phone Number [facility] [address] [place] [address], [place] [phone] * CYTOMEGALOVIRUS ANTIBODY IGG BLOOD (03/04/2024 4:13 PM SAMPLE SUPERVISOR) [facility] Cytomegalovirus Antibody IgG <0.20 <=0.70 U/mL 03/05/2024 9:27 PM SAMPLE SUPERVISOR [employer] ([facility]) Comment: INTERPRETIVE INFORMATION: Cytomegalovirus Antibody, IgG ??0.59 [...] laboratory at the same time. Performed By: [place] [address] Manager Social Responsibility: Uche Morley MD, PhD CLIA Number: [id number] Blood BLOOD SPECIMEN / Unknown Lab Venipuncture / Unknown 03/04/2024 4:13 PM SAMPLE SUPERVISOR 03/04/2024 4:23 PM SAMPLE SUPERVISOR Cindy Garcia MD LAB - CHEMISTRY CHELI MONREAL Performing Organization Address City/[facility]/ZIP Co de Phone Number [address] [address] * C-REACTIVE PROTEIN (03/04/2024 4:13 PM SAMPLE SUPERVISOR) Pathologist [facility] C-Reactive Protein 0.5 <=0.5 mg/dL 03/04/2024 4:56 PM SAMPLE SUPERVISOR [facility] Blood BLOOD SPECIMEN / Unknown Lab Venipuncture / Unknown 03/04/2024 4:13 PM SAMPLE SUPERVISOR 03/04/2024 4:27 PM SAMPLE SUPERVISOR Cindy Garcia MD LAB - CHEMISTRY CHELI MONREAL Performing Organization Address City/[facility]/ZIP Co de Phone Number [address] [address], [facility] [phone] * MARLINE BLOOD SCREEN W/REFLEX TITER (03/04/2024 4:13 PM SAMPLE SUPERVISOR) MARLINE IgG None Detected None Detected 03/05/2024 11:42 PM SAMPLE SUPERVISOR [facility] ([facility]) Comment: If suspicion of connective tissue disease is strong and MARLINE EIA is negative, consider testing for MARLINE by IFA ([id number]). INTERPRETIVE INFORMATION: Anti-Nuclear Antibodies (MARLINE), IgG by TOÑA Antinuclear Antibodies (MARLINE), IgG by TOÑA: MARLINE specimens are screened using enzyme-linked immunosorbent assay (TOÑA) methodology. All TOÑA results reported as Detected are further tested by indirect fluorescent assay (IFA) using HEp-2 substrate with an IgG-specific conjugate. The MARLINE TOÑA screen is designed to detect antibodies against dsDNA, histones, SS-A (Ro), SS-B (La), Pimentel, Pimentel/ENROUTE CONTROLLER, Scl-70, Mey-1, centromeric proteins, other antigens extracted from the HEp-2 cell nucleus. MARLINE TOÑA assays have been reported to have lower sensitivities than MARLINE IFA for systemic autoimmune rheumatic diseases (SARD). Negative results do not necessarily rule out SARD. Performed By: [facility] [address] [place] [address] Manager Social Responsibility: Uche Morley MD, PhD CLIA Number: [id number] Blood BLOOD SPECIMEN / Unknown Lab Venipuncture / Unknown 03/04/2024 4:13 PM SAMPLE SUPERVISOR 03/04/2024 4:23 PM SAMPLE SUPERVISOR Cindy Garcia MD LAB - CHEMISTRY CHELI MONREAL [facility] [employer] [facility]) [address] [place] [address], [facility] * ZINC BLOOD (03/04/2024 4:13 PM SAMPLE SUPERVISOR) Pathologist [facility] Zinc 62.4 60.0 - 120.0 ug/dL 03/06/2024 6:35 AM SAMPLE SUPERVISOR [facility] ([facility]) Comment: INTERPRETIVE INFORMATION: Zinc, Serum or Plasma [...] developed and its performance characteristics determined by [facility]. It has not been cleared or approved by the [place] Food and Drug Administration. This test was performed in a CLIA certified laboratory and is intended for clinical purposes. Performed By: [facility] [address] [place] [address] Manager Social Responsibility: Uche Morley MD, PhD CLIA Number: [id number] Blood BLOOD SPECIMEN / Unknown Lab Venipuncture / Unknown 03/04/2024 4:13 PM SAMPLE SUPERVISOR 03/04/2024 4:23 PM SAMPLE SUPERVISOR Cindy Garcia MD LAB - CHEMISTRY CHLEI MONREAL Performing Organization Address [facility] de Phone Number [facility] [employer] [facility]) [address] [place] [address] * COPPER BLOOD (03/04/2024 4:13 PM SAMPLE SUPERVISOR) [facility] Copper 108.5 70.0 - 140.0 ug/dL 03/06/2024 6:35 AM SAMPLE SUPERVISOR [facility] ([facility]) Comment: INTERPRETIVE INFORMATION: Copper, Serum or Plasma [...] developed and its performance characteristics determined by [facility]. It has not been cleared or approved by the [place] Food and Drug Administration. This test was performed in a CLIA certified laboratory and is intended for clinical purposes. Performed By: [facility] [address] [place] [address] Manager Social Responsibility: Uche Morley MD, PhD CLIA Number: [id number] Blood BLOOD SPECIMEN / Unknown Lab Venipuncture / Unknown 03/04/2024 4:13 PM SAMPLE SUPERVISOR 03/04/2024 4:23 PM SAMPLE SUPERVISOR Cindy Garcia MD LAB - CHEMISTRY CHELI MONREAL Performing Organization Address [facility] Co de Phone Number [facility] [employer] ([facility]) [address] * ERYTHROCYTE SEDIMENTATION RATE (03/04/2024 4:13 PM SAMPLE SUPERVISOR) Pathologist [facility] Erythrocyte Sedimentation Rate Westergren 14 0 - 20 MM/HR 03/04/2024 5:10 PM SAMPLE SUPERVISOR [facility] Blood BLOOD SPECIMEN / Unknown Lab Venipuncture / Unknown 03/04/2024 4:13 PM SAMPLE SUPERVISOR 03/04/2024 4:27 PM SAMPLE SUPERVISOR Cindy Garcia MD LAB - HEMATOLOGY ORD ERABLES Performing Organization Address [facility]/ZIP Co de Phone Number [facility] [address] [place] [phone], [place] [phone] * HEPATITIS B SURFACE ANTIBODY (03/04/2024 4:13 PM SAMPLE SUPERVISOR) [facility] Hepatitis B Virus Surface Antibody Non-react carlos Non-react carlos 03/04/2024 5:12 PM SAMPLE SUPERVISOR [facility] Comment: < 8 mIU/mL Hepatitis B surface Antibody (HBsAb). Nonreactive for HBsAb - individual is considered not immune to Hepatitis B Virus infection. Hepatitis B Surface Antibody Quantitative 0.3 <8.0 mIU/mL 03/04/2024 5:12 PM SAMPLE SUPERVISOR [facility] Comment: Hepatitis B Surface Antibody Numeric Result Interpretation: ? Nonreactive: ?<8.0 mIU/mL ? Indeterminate: ??8.0 - 12.0 mIU/mL ? Reactive: ?>12.0 mIU/mL ? Blood BLOOD SPECIMEN / Unknown Lab Venipuncture / Unknown 03/04/2024 4:13 PM SAMPLE SUPERVISOR 03/04/2024 4:23 PM SAMPLE SUPERVISOR Cindy Garcia MD LAB - CHEMISTRY CHELI MONREAL Performing Organization Address [facility]/ZIP Co de Phone Number [facility] [address] [place] [phone], [place] [phone] * HEPATITIS B CORE ANTIBODY TOTAL (03/04/2024 4:13 PM SAMPLE SUPERVISOR) Pathologist [facility] HBc Antibody Total Non-reacti ve Non-reacti ve 03/04/2024 5:12 PM SAMPLE SUPERVISOR [facility] Blood BLOOD SPECIMEN / Unknown Lab Venipuncture / Unknown 03/04/2024 4:13 PM SAMPLE SUPERVISOR 03/04/2024 4:23 PM SAMPLE SUPERVISOR Cindy Garcia MD LAB - CHEMISTRY CHELI MONREAL [facility] [address] [place] [id number], [place] [phone] * FOLATE (03/04/2024 4:13 PM SAMPLE SUPERVISOR) [facility] Folate 17.7 7.0 - 31.4 ng/mL 03/04/2024 5:29 PM SAMPLE SUPERVISOR [facility] Blood BLOOD SPECIMEN / Unknown Lab Venipuncture / Unknown 03/04/2024 4:13 PM SAMPLE SUPERVISOR 03/04/2024 4:27 PM SAMPLE SUPERVISOR Cindy Garcia MD LAB - CHEMISTRY CHELI MONREAL [address] [address], [place] [phone] * VITAMIN B12 (03/04/2024 4:13 PM SAMPLE SUPERVISOR) [facility] Vitamin B12 524 213 - 816 pg/mL 03/04/2024 5:29 PM SAMPLE SUPERVISOR [facility] Blood BLOOD SPECIMEN / Unknown Lab Venipuncture / Unknown 03/04/2024 4:13 PM SAMPLE SUPERVISOR 03/04/2024 4:27 PM SAMPLE SUPERVISOR Cindy Garcia MD LAB - CHEMISTRY CHELI MONREAL [address] [address], [place] [phone] * (ABNORMAL) IRON + TRANSFERRIN PANEL [w/Transferrin Sat % + TIBC] (03/04/2024 4:13 PM SAMPLE SUPERVISOR) Iron 31(L) 50 - 175 ug/dL 03/04/2024 4:53 PM [facility] Transferrin 257 174 - 382 mg/dL 03/04/2024 4:53 PM [facility] Transferrin Saturation % 10(L) 16 - 50 % 03/04/2024 4:53 PM [facility] TIBC Calculated 321 240 - 450 ug/dL 03/04/2024 4:53 PM [facility] Blood BLOOD SPECIMEN / Unknown Lab Venipuncture / Unknown 03/04/2024 4:13 PM SAMPLE SUPERVISOR 03/04/2024 4:23 PM SAMPLE SUPERVISOR Cindy Garcia MD LAB - CHEMISTRY CHELI MONREAL [address] [address], [place] [phone] * HEPATITIS C ANTIBODY (03/04/2024 4:13 PM SAMPLE SUPERVISOR) [facility] Hepatitis C Antibody Non-react carlos Non-reac tive 03/04/2024 5:12 PM [facility] Comment:Hepatitis C Antibody screen indicates no serologic evidence of past or current infection with Hepatitis C Virus. Patients with unexplained liver disease who are immunocompromised or suspected of having acute Hepatitis C infection may benefit from Nucleic Acid Test (YUSRA) for Hepatitis C Viral RNA to confirm Hepatitis C status. Blood BLOOD SPECIMEN / Unknown Lab Venipuncture / Unknown 03/04/2024 4:13 PM SAMPLE SUPERVISOR 03/04/2024 4:23 PM SAMPLE SUPERVISOR Cindy Garcia MD LAB - CHEMISTRY CHELI MONREAL [address] [address], [place] [phone] * (ABNORMAL) FERRITIN (03/04/2024 4:13 PM SAMPLE SUPERVISOR) Pathologist [facility] Ferritin 21(L) 22 - 275 ng/mL 03/04/2024 5:12 PM [facility] Blood BLOOD SPECIMEN / Unknown Lab Venipuncture / Unknown 03/04/2024 4:13 PM SAMPLE SUPERVISOR 03/04/2024 4:23 PM SAMPLE SUPERVISOR Cindy Garcia MD LAB - CHEMISTRY CHELI MONREAL [facility] Address City/State/ZIP Co de Phone Number [facility] [address] [place] [address], [facility] [phone] from Last 3 Months Advance Directives * Full Code (Latest Code Status on File) Date Activated Date Inactivated Comments 03/13/2024 9:41 PM 03/23/2024 2:56 PM Care Teams Damage Assessor Relationship Specialty Start Date End Date Timothy Banks MD [address] [place] [id number] PCP - General 10/19/18 Cindy Garcia MD [address] [place] [address] Boiler Fireman/Oncologis t Hematology and Oncology 03/24/24
--- OUTSIDE RECORDS SUMMARY | 2024-05-06 12:15 | XMS_ITS | Encounter Summary ---
Author Organization [facility] Address [address] [place] [address] Phone Care Team Providers Care Agricultural Extension Educator Name Role Phone Timothy Banks MD Primary Care Provider + [phone] Encounter Details Date Type Department Care Team (Late st Contact Info) Description 08/25/2017 Orders Only [facility] ProviderDusty MD [address] [place] [id number] Social History Tobacco Use Types Packs/Day Years Used Date Smoking Tobacco: Never Smokeless Tobacco: Never Alcohol Use Standard Drinks/Week Comments Yes 0 (1 standard drink = 0.6 oz pur e alcohol) Sex and Gender Information Value Date Recorded Sex Assigned at Not on file Legal Sex Male 4:19 AM TOYS INSPECTOR Gender Identity Male 01/12/2020 7:43 PM [...] on filedocumented in this encounter Care Teams Agricultural Extension Educator Relationship Specialty Start Date End Date Timothy Banks MD PCP - General 07/08/16 documented as of this encounter
--- OUTSIDE RECORDS SUMMARY | 2024-05-06 12:15 | XMS_ITS ---
Author Organization [facility] Address [address] [facility] [place] [address] Care Team Providers Care Returns Processor Name Role Phone Timothy Banks MD Primary Care Provider [phone] Cindy Garcia MD Unavailable Active Problems Problem [...] treatments are documented for this patient in [facility]. Treatments may have been administered in another system.
--- OUTSIDE RECORDS SUMMARY | 2024-05-06 12:15 | XMS_ITS | Patient Health Summary ---
Author Organization [facility] Address [address] [place] [address] Care Team Providers Care Revenue Settlements Administrator Name Role Phone Timothy Banks MD Primary Care Provider [phone] Cindy Garcia MD Unavailable Note from [facility],non-owned Affiliates and Associated Physician Practices is amultiple site organization consisting of ambulatory clinics and hospital sitesin [place], [place], [place] and [place]. This disclosure is being madepursuant to the Care Everywhere program and may not contain all information available regarding this patient. Last updated 17.[facility] Allergies * Contrast-Gadolinium Agents For Mri(Urticaria) -Medium [...] mouth once daily after breakfast Ended Medications* posaconazole (Noxafil) 100 MG tablet(Started 03/13/2024) (Discontinued) Take 3 (three) tablets by mouth daily [...] and heating? Not hard at all 03/13/2024 [facility] [place] of Occupat ional Health - Occupational Stress [...] any time in the past 12 m [facility], were you homeless or living in a intermediate (including now)? No 03/13/2024 Sex and Gender Information Value Date Recorded Sex Assigned at Male 03/05/2024 8:04 AM ABSTRACT CLERK Gender Identity Male 03/05/2024 8:04 AM ABSTRACT CLERK Sexual Orientation Straight 03/05/2024 8: 04 AM ABSTRACT CLERK Last Filed Vital Signs Vital Sign Reading Time Taken Comments Blood Pressure 126/81 04/22/2024 9:47 AM ABSTRACT CLERK Pulse 61 04/22/2024 9:47 AM ABSTRACT CLERK Temperature 36.2 ??C (97.2 ??F) 04/22/2024 9:47 AM CS T Respiratory Rate 20 04/19/2024 10:07 AM ABSTRACT CLERK Oxygen Saturation 100% 04/22/2024 9:47 AM ABSTRACT CLERK Inhaled Oxygen Concentration - - Weight 99 kg (218 lb 3.2 oz) 04/22/2024 9:47 AM ABSTRACT CLERK Height 182.9 cm (6') 04/22/2024 9:47 AM ABSTRACT CLERK Body Mass Index 29.59 04/22/2024 9:47 AM ABSTRACT CLERK Medical Devices Implanted Type Area Civil Engineer Helper Device Identifier Shelf Expiration Date Model / Serial / Lot Port Implinfn Powerport Clrvu Argd Kadny Implanted:Qty : 1 on 04/11/2024 by Davian Marshall MD at [facility] Catheters Right: Chest Wall [employer] [id number] 02/07/2025 [id number] / / [id number] Procedures * EKG 12-LEAD(Performed 04/22/2024) Performed for [...] 03/15/2024) Performed for MDS (myelodysplastic syndrome) (FORMERLY [facility]) * MYELOID MALIGNANCIES MUTATION PNL(Performed 03/15/2024) Performed for MDS (myelodysplastic syndrome) ([facility]) * FISH MDS PANEL BLOOD OR BONE MARROW(Performed 03/15/2024) Performed for MDS (myelodysplastic syndrome) ([facility]) * FISH AML PANEL BLOOD OR BM RFLX PML/DANTE(Performed 03/15/2024) Performed for MDS (myelodysplastic syndrome) ([facility]) * FLOW CYTOMETRY BONE MARROW(Performed 03/15/2024) Performed for MDS (myelodysplastic syndrome) ([facility]) * BONE MARROW BIOPSY (STL)(Performed 03/15/2024) Performed for MDS (myelodysplastic syndrome) ([facility]) * FISH PML/DANTE PANEL(Performed 03/15/2024) Performed for MDS (myelodysplastic syndrome) ([facility]) * CHROMOSOME ANALYSIS BONE MARROW PANEL(Performed 03/15/2024) Performed for MDS (myelodysplastic syndrome) ([facility]) * LAB MISC TEST (NOT BLOOD)(Performed 03/15/2024) [...] 03/14/2024) Performed for MDS (myelodysplastic syndrome) ([facility]) * FLOW CYTOMETRY BLOOD PROFILE(Performed 03/14/2024) Performed for MDS (myelodysplastic syndrome) ([facility]) * DIFFERENTIAL MANUAL(Performed 03/13/2024) * LDH BLOOD(Performed [...] BLD(Performed 03/04/2024) Performed for MDS (myelodysplastic syndrome) ([facility]) * FISH PML/DANTE PANEL(Performed 03/04/2024) Performed for MDS (myelodysplastic syndrome) ([facility]) * FISH AML PANEL BLOOD OR BM RFLX PML/DANTE(Performed 03/04/2024) Performed for MDS (myelodysplastic syndrome) ([facility]) * FISH AML+MDS PANEL BLOOD OR BONE MARROW(Performed 03/04/2024) Performed for MDS (myelodysplastic syndrome) ([facility]) * MYELOID MALIGNANCIES MUTATION PNL(Performed 03/04/2024) Performed for MDS (myelodysplastic syndrome) (HCC) * HLA TYPING LOW/HIGH RESOLUTION DPB1(Performed 03/04/2024) Performed for MDS (myelodysplastic syndrome) (HCC) * HLA TYPING DNA HIGH RESOLUTION DR(Performed 03/04/2024) Performed for MDS (myelodysplastic syndrome) (HCC) * HLA TYPING DNA HIGH RESOLUTION B(Performed 03/04/2024) Performed for MDS (myelodysplastic syndrome) (HCC) * HLA TYPING DNA HIGH RESOLUTION C(Performed 03/04/2024) Performed for MDS (myelodysplastic syndrome) (HCC) * HLA TYPING DNA HIGH RESOLUTION DQ(Performed 03/04/2024) Performed for MDS (myelodysplastic syndrome) (HCC) * HLA TYPING DNA HIGH RESOLUTION A(Performed 03/04/2024) Performed for MDS (myelodysplastic syndrome) (HCC) * HLA TYPING DNA LOW RESOLUTION DR,DQ(Performed 03/04/2024) Performed for MDS (myelodysplastic syndrome) (HCC) * HLA TYPING DNA LOW RESOLUTION A,B,C(Performed 03/04/2024) Performed for MDS (myelodysplastic syndrome) (HCC) * HLA TYPING DNA HIGH RES(Performed 03/04/2024) Performed for MDS (myelodysplastic syndrome) (HCC) [...] 12-LEAD - HOSPITAL PERFORMED (04/22/2024 1:27 PM ABSTRACT CLERK) Only the most recent of3 resultswithin the time period is included. Ventricular Rate 61 BPM [facility] Atrial Rate 61 BPM [facility] P-R Interval 112 ms [facility] QRS Duration ms 126 ms [facility] Q-T Interval ms 476 ms [facility] QTC Calculation (Bezet) 479 ms [facility] MUSE Calculated P Rico 84 degrees [facility] MUSE Calculated R Rico 36 degrees [facility] MUSE Calculated T Rico -163 degrees [facility] MUSE Interpretation EKG NORMAL SINUS RHYTHM NON-SPECIFIC INTRA-VENTRICULA R CONDUCTION BLOCK T WAVE ABNORMALITY, CONSIDER INFERIOR ISCHEMIA T WAVE ABNORMALITY, CONSIDER ANTEROLATERAL ISCHEMIA ABNORMAL ECG WHEN COMPARED WITH ECG OF 18-MAR-2024 13:48, NO SIGNIFICANT CHANGE WAS FOUND Confirmed by CAPRICE ?HANSEL ANDERSON ([id number]) on 04/23/2024 8:31:57 AM [facility] MUSE 04/22/2024 1:27 PM ABSTRACT CLERK 04/23/2024 8:31 AM ABSTRACT CLERK Cindy Garcia MD ECG ORDERABLES [facility] MUSE * (ABNORMAL) DIFFERENTIAL MANUAL (04/22/2024 10:11 AM [facility] [[email or web address] Only the most recent of12 resultswithin the time period is included. Neutrophil % 37(L) 41 - 74 % 04/22/2024 11:21 AM [facility] Lymphocyte % 39 17 - 47 % 04/22/2024 11:21 AM [facility] Monocyte % 22(H) 3 - 11 % 04/22/2024 11:21 AM [facility] Eosinophil % 1 0 - 7 % 04/22/2024 11:21 AM [facility] Metamyelocyte % 1(H) 0% % 11:21 AM [facility] Neutrophil Absolute 0.22(L) 1.60 - 7.50 x10E9/L 04/22/2024 11:21 AM [facility] Lymphocyte Absolute 0.23(L) 1.00 - 4.40 x10E9/L 04/22/2024 11:21 AM [facility] Monocyte Absolute 0.13(L) 0.15 - 1.00 x10E9/L 04/22/2024 11:21 AM [facility] Eosinophil Absolute 0.01 0.00 - 0.60 x10E9/L 04/22/2024 11:21 AM [facility] RBC Morphology REVIEWED 04/22/2024 11:21 AM [facility] Schistocytes MODERATE(A) (none) 04/22/2024 11:21 AM [facility] Large Platelets PRESENT(A) (none) 11:21 AM [facility] Blood BLOOD SPECIMEN / Unknown Venipuncture / Unknown 04/22/2024 10:11 AM ABSTRACT CLERK 04/22/2024 10:33 AM ABSTRACT CLERK Cindy Garcia MD LAB - HEMATOLOGY ORD ERABLES [facility] [address] [place] [address], [facility] [phone] * (ABNORMAL) CBC WITH DIFFERENTIAL (04/22/2024 10:11 AM [facility] [[email or web address]]) Only the most recent of16 resultswithin the time period is included. WBC 0.6(LL) 4.0 - 10.7 x10E9/L 04/22/2024 11:21 AM [facility] RBC Count 3.69(L) 4.30 - 5.80 x10E12/L 04/22/2024 11:21 AM [facility] Hemoglobin 10.3(L) 13.3 - 17.5 g/dL 04/22/2024 11:21 AM [facility] Hematocrit 31.8(L) 38.7 - 51.1 % 04/22/2024 11:21 AM [facility] MCV 86.2 80.0 - 98.0 fL 04/22/2024 11:21 AM [facility] MCH 27.9 26.7 - 33.6 pg 04/22/2024 11:21 AM [facility] MCHC 32.4 31.7 - 36.3 g/dL 04/22/2024 11:21 AM [facility] RDW-CV 17.9(H) 11.3 - 14.8 % 04/22/2024 11:21 AM [facility] Platelet Count 212 150 - 420 x10E9/L 04/22/2024 11:21 AM [facility] MPV 12.4(H) 7.8 - 11.4 fL 04/22/2024 11:21 AM [facility] Preliminary Absolute Neutrophil 0.17(L) 1.60 - 7.50 x10E9/L 04/22/2024 11:21 AM [facility] Blood BLOOD SPECIMEN / Unknown Venipuncture / Unknown 04/22/2024 10:11 AM [facility] [[email or web address]] 04/22/2024 10:33 AM [facility] [[email or web address]] Cindy Garcia MD LAB - HEMATOLOGY ORD ERABLES [facility] [address] [place] [address], [facility] [phone] * (ABNORMAL) COMPREHENSIVE METABOLIC PANEL (04/22/2024 10:11 AM [facility] [[email or web address]]) Only the most recent of18 resultswithin the time period is included. BUN 11 7 - 26 mg/dL 04/22/2024 10:58 AM [facility] Creatinine 1.08 0.71 - 1.16 mg/dL 04/22/2024 10:58 AM [facility] Sodium 140 136 - 145 mmol/L 04/22/2024 10:58 AM [facility] Potassium 3.5 3.5 - 4.5 mmol/L 04/22/2024 10:58 AM [facility] Chloride 109(H) 98 - 107 mmol/L 04/22/2024 10:58 AM [facility] CO2 23 22 - 29 mmol/L 04/22/2024 10:58 AM [facility] Glucose 90 70 - 99 mg/dL 04/22/2024 10:58 AM [facility] Calcium 8.7 8.4 - 10.2 mg/dL 04/22/2024 10:58 AM [facility] Protein Total 6.1 6.0 - 8.3 g/dL 04/22/2024 10:58 AM [facility] Albumin 3.4 3.4 - 5.0 g/dL 04/22/2024 10:58 AM [facility] Bilirubin Total 1.1 0.2 - 1.2 mg/dL 04/22/2024 10:58 AM [facility] Alkaline Phosphatase 136 40 - 150 U/L 04/22/2024 10:58 AM [facility] ALT 21 5 - 55 U/L 04/22/2024 10:58 AM [facility] AST 17 5 - 34 U/L 04/22/2024 10:58 AM [facility] Anion Gap 8 6 - 16 04/22/2024 10:58 AM [facility] BUN/Creatinine Ratio 10 7 - 23 04/22/2024 10:58 AM [facility] Osmolality Calculated 289 275 - 295 mOsm/kg 04/22/2024 10:58 AM [facility] Albumin/Globulin Ratio 1.3 1.1 - 2.3 04/22/2024 10:58 AM [facility] eGFR by CKD-EPI 70(L) >=90 mL/min/1.7 3 m2 04/22/2024 10:58 AM [facility] Blood BLOOD SPECIMEN / Unknown Venipuncture / Unknown 04/22/2024 10:11 AM ABSTRACT CLERK 04/22/2024 10:31 AM [facility] [[email or web address]] Cindy Garcia MD LAB - CHEMISTRY ELIE JOCELIN [facility] [address] [place] [address], [facility] [phone] * QUANTIFERON-TB GOLD PLUS 4-TUBE (04/16/2024 1:43 PM ABSTRACT CLERK) QuantiFERON Mitogen Minus NIL 9.09 IU/mL 04/18/2024 11:11 PM ABSTRACT CLERK [facility]) QuantiFERON Nil Value 0.04 IU/mL 04/18/2024 11:11 PM ABSTRACT CLERK [facility]) QuantiFERON Plus TB1 Minus NIL 0.00 <=0.34 IU/mL 04/18/2024 11:11 PM ABSTRACT CLERK [facility]) QuantiFERON Plus TB2 Minus NIL 0.00 <=0.34 IU/mL 04/18/2024 11:11 PM ABSTRACT CLERK [facility]) QuantiFERON-TB Gold Plus Negative Negative 04/18/2024 11:11 PM ABSTRACT CLERK [facility]) Comment: INTERPRETIVE INFORMATION:Quantiferon TB Gold Plus Interferon [...] Mycobacterium tuberculosis Infection -- [place], 2010 (http://www.cdc.gov/mmwr/preview/mmwrhtml/bs3849e9.htm), for more information concerning test performance in low-prevalence populations and use in occupational screening. Performed By: [facility] [address] [place] [address] Rest Room Maid: Uche Morley MD, PhD CLIA Number: [id number] Blood BLOOD SPECIMEN / Unknown Venipuncture / Unknown 04/16/2024 1:43 PM ABSTRACT CLERK 04/16/2024 2:03 PM ABSTRACT CLERK Cindy Garcia MD LAB - CHEMISTRY CHELI MONREAL [facility] ([facility]) [address] [place] [address] * LDH BLOOD (04/16/2024 10:26 AM ABSTRACT CLERK) Only the most recent of13 resultswithin the time period is included. [facility] LDH Total 197 125 - 243 Units/L 04/16/2024 11:14 AM ABSTRACT CLERK [facility] Blood BLOOD SPECIMEN / Unknown Venipuncture / Unknown 04/16/2024 10:26 AM ABSTRACT CLERK 04/16/2024 10:48 AM ABSTRACT CLERK Cindy Garcia MD LAB - CHEMISTRY CHELI MONREAL [place] [address] [place] [address], [place] [phone] * IR Tim Cath Insert (04/11/2024 9:45 AM ABSTRACT CLERK) Anatomical Region Laterality Modality Chest X-Ray Angiograph y 04/11/2024 9:19 AM ABSTRACT CLERK Impressions 04/11/2024 3:43 PM ABSTRACT CLERK Impression: Successful placement of a single lumen 8 Brazilian x 23 cm chest power port via [...] evaluation, please review the evaluation forms in [facility]. For details on monitored clinical parameters during the intra-service sedation time, please review the procedure nurse documentation in [facility]. Report dictated by Eduardo Coleman MD, PhD (residential recycle driver). > Dictated by Eduardo Coleman MD (Textile Knitter) 04/11/2024 9:19 AM Davian Post DO have personally reviewed and interpreted this examination/study. > Interpreting Provider: Davian Marshall DO on 04/11/2024 3:43 PM Narrative 04/11/2024 3:43 PM ABSTRACT CLERK PROCEDURE: ??IR TIM CATH INSERT, DATE/TIME OF EXAM: ??04/11/2024 5:49 AM, LOCATION ??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 3.Fluoroscopy-guided placement of single lumen 8 Brazilian x 23 cm chest power port via [...] draped in the usual sterile manner. A critical care transport nurse film of chest was obtained, which was [...] DATE/TIME OF EXAM: 04/11/2024 5:49 AM, LOCATION 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 3.Fluoroscopy-guided placement of single lumen 8 Brazilian x 23 cm chestpower port via the [...] and draped inthe usual sterile manner. A critical care transport nurse film of chest was obtained, which was [...] the procedure well [facility]. There were no immediate complicationsassociated with the procedure. Impression: Successful placement of a single lumen 8 Brazilian x 23 cmchest power port via the [...] intravenously in my presence, and [facility] as an independent trained observer who [...] evaluation, please review the evaluation forms in [facility]. For details on monitored clinical parameters during the intra-service sedation time, please review the procedure nurse documentation in [facility]. Report dictated by Eduardo Coleman MD, PhD (residential recycle driver). > Dictated by Eduardo Coleman MD (Textile Knitter) 04/11/2024 9:19AM Davian Post DO have personally reviewed and interpreted this examination/study. > Interpreting Provider: Davian Marshall DO on 04/11/2024 3:43 PM Cindy Garcia MD IR ORDERABLES * PT-INR [facility] (04/11/2024 7:20 AM ABSTRACT CLERK) Only the most recent of11 resultswithin the time period is included. PT 14.6 12.1 - 14.8 Seconds 04/11/2024 7:56 AM ABSTRACT CLERK [facility] INR 1.2 See Comment 04/11/2024 7:56 AM ABSTRACT CLERK [facility] Comment:The suggested therap eutic range for standard coumadin (warfarin) therapy is an INR of 2.0-3.0. For high-risk patients (Mechanical Mitral Valve Prosthesis, etc.), the suggested prophylactic therapeutic range is an INR of 2.5-3.5. Blood BLOOD SPECIMEN / Unknown Venipuncture / Unknown 04/11/2024 7:20 AM ABSTRACT CLERK 04/11/2024 7:23 AM ABSTRACT CLERK Cindy Garcia MD LAB - COAGULATION OR DERABLES Performing Organization Address City/[facility]/ZIP Co de Phone Number [address] [address], [facility] [phone] * URIC ACID BLOOD (04/01/2024 3:12 PM ABSTRACT CLERK) Only the most recent of13 resultswithin the time period is included. Uric Acid 4.0 3.5 - 7.2 mg/dL 04/01/2024 5:52 PM ABSTRACT CLERK [facility] Blood BLOOD SPECIMEN / Unknown Lab Venipuncture / Unknown 04/01/2024 3:12 PM ABSTRACT CLERK 04/01/2024 5:30 PM ABSTRACT CLERK Cindy Garcia MD LAB - CHEMISTRY ORDE RABLES [address] [address], [place] [phone] * ERYTHROPOIETIN (04/01/2024 3:12 PM ABSTRACT CLERK) Erythropoietin 22 4 - 27 mU/mL 04/02/2024 11:36 AM ABSTRACT CLERK CMP.[facility] ([facility]) Comment: INTERPRETIVE INFORMATION: Erythropoietin Normal serum concentrations [...] [facility] [phone],1989). Performed By: [employer] [address] [place] [address] Rest Room Maid: Uche Morley MD, PhD CLIA Number: [id number] Blood BLOOD SPECIMEN / Unknown Lab Venipuncture / Unknown 04/01/2024 3:12 PM ABSTRACT CLERK 04/01/2024 3:22 PM ABSTRACT CLERK Cindy Garcia MD LAB - CHEMISTRY CHELI MONREAL [facility] [employer] [facility]) [address] [place] [address], [facility] * SOLUBLE TRANSFERRIN RECEPTOR (04/01/2024 3:12 PM ABSTRACT CLERK) [facility] Soluble Transferrin Receptor 3.3 2.2 - 5.0 mg/L 04/02/2024 9:13 PM ABSTRACT CLERK [facility] [employer] ([facility]) Comment: INTERPRETIVE INFORMATION: Soluble Transferrin Receptor People [...] ??High ? Normal ? High Performed By: [facility] [address] [place] [address] Rest Room Maid: Uche Morley MD, PhD CLIA Number: [id number] Blood BLOOD SPECIMEN / Unknown Lab Venipuncture / Unknown 04/01/2024 3:12 PM ABSTRACT CLERK 04/01/2024 3:22 PM ABSTRACT CLERK Cindy Garcia MD LAB - CHEMISTRY CHELI MONREAL Performing Organization Address [facility] de Phone Number [facility] ([facility]) [address] [place] [address], [facility] * PHOSPHORUS BLOOD (04/01/2024 3:12 PM ABSTRACT CLERK) Only the most recent of13 resultswithin the time period is included. Phosphorus 2.9 2.8 - 5.1 mg/dL 04/01/2024 5:52 PM ABSTRACT CLERK [facility] Blood BLOOD SPECIMEN / Unknown Lab Venipuncture / Unknown 04/01/2024 3:12 PM ABSTRACT CLERK 04/01/2024 5:30 PM ABSTRACT CLERK Cindy Garcia MD LAB - CHEMISTRY CHELI MONREAL Performing Organization Address City/[facility]/ZIP Co de Phone Number [address] [place] [address], [facility] [phone] * MAGNESIUM BLOOD (04/01/2024 3:12 PM ABSTRACT CLERK) Only the most recent of13 resultswithin the time period is included. Magnesium 2.1 1.6 - 2.6 mg/dL 04/01/2024 4:25 PM ABSTRACT CLERK [facility] Comment:Hemolysis detected i n this specimen. Hemolysis is known to cause elevations in this analyte. Caution should be exercised in the interpretation of this result. Recommend repeat testing if clinically indicated. Blood BLOOD SPECIMEN / Unknown Lab Venipuncture / Unknown 04/01/2024 3:12 PM ABSTRACT CLERK 04/01/2024 3:36 PM ABSTRACT CLERK Cindy Garcia MD LAB - CHEMISTRY CHELI MONREAL Performing Organization Address [facility]/ZIP Co de Phone Number [address] [address], [facility] [phone] * LAB RESULTS ORDER (03/25/2024) 03/25/2024 Narrative 03/25/2024 Ordered by an unspecified provider. Scanned Document LAB - THERAPEUTIC DR UG MONITORING ORDERABLES * PTT [facility] (03/23/2024 12:25 AM ABSTRACT CLERK) Only the most recent of10 resultswithin the time period is included. APTT 35.4 23.0 - 38.4 Seconds 03/23/2024 1:31 AM ABSTRACT CLERK [facility] Comment:Suggested therapeuti c range for full dose I.V. unfractionated heparin therapy for venous thromboembolism is 71 to 109 seconds. Blood BLOOD SPECIMEN / Unknown Venipuncture / Unknown 03/23/2024 12:25 AM ABSTRACT CLERK 03/23/2024 1:05 AM ABSTRACT CLERK Ghanshyam Dewey PA-C LAB - COAGULATION OR DERABLES Performing Organization Address City/[facility]/ZIP Co de Phone Number [address] [address], [facility] [phone] * PATHOLOGY PERIPHERAL SMEAR REVIEW (03/18/2024 8:33 AM ABSTRACT CLERK) Path Review Confirmed 03/18/2024 2:44 PM ABSTRACT CLERK [facility] Blood BLOOD SPECIMEN / Unknown Lab Venipuncture / Unknown 03/18/2024 8:33 AM ABSTRACT CLERK 03/18/2024 8:46 AM ABSTRACT CLERK Narrative [facility] - 03/18/2024 2:44 PM ABSTRACT CLERK A rare blast seen. Ghanshyam Dewey PA-C LAB - PATHOLOGY/CYTO LOGY ORDERABLES [facility] [address] [place] [address], [facility] [phone] * ECHO COMPLETE W CONTRAST (03/15/2024 1:47 PM ABSTRACT CLERK) IVSd 2D 1.314 cm SSM CV [...] Region Laterality Modality Ultrasound 03/15/2024 2:04 PM ABSTRACT CLERK Narrative 03/15/2024 5:17 PM ABSTRACT CLERK Summary ??* The left ventricle is [...] 1945 Gender: ? Male Accession #: ? [id number] Ht: ? 72 in Wt: ? 218 lb BSA: ? 2.26 m2 HR: ? 65 bpm BP: ? 103 / ? 55 mmHg Exam Date: ? 03/15/2024 2:04 PM Patient Status: ? I/P Study Site: ? [facility] Primary Location: ? [facility] EStud Info Technical Quality: ? Adequate [...] ? Ted Soler Fellow: ? Josh Knight Senior Clinician: ? Dhruv Sorto Left Ventricle ??Left ventricular [...] 2:04 PM Patient Status: I/P Study Site: [facility]: Adequate Exam Type: ECHO [...] Attending Physician: Ted Soler Fellow: Josh Knight Senior Clinician: Dhruv Sorto Left Ventricle Left ventricular systolic [...] BLOOD OR BONE MARROW (03/15/2024 9:05 AM ABSTRACT CLERK) MDS Panel by Fish See Note Normal 024 11:26 AM ABSTRACT CLERK [facility] ([facility]) Comment: Test Performed: Myelodysplastic Syndrome (MDS) Panel by FISH (FISH MDS P) Specimen Type: Bone Marrow Indication for Testing: Myelodysplastic syndrome, unspecified RESULT Normal FISH Result Deletion 5q: ??not detected Monosomy 7: ??not detected Deletion 7q: ??not detected Trisomy 8: ??not detected Deletion 20q: ??not detected INTERPRETATION There was no evidence of deletion 5q31, monosomy 7, deletion 7q31, trisomy 8, or deletion 07c53-m86.1. This analysis was performed with the MDS panel probes D5S23/EGR1, D7Z1/E7E247, CEP8 ([employer]), and Del(20q) ([employer]). A total of 200 cells were scored for each probe. Cytogenomic Nomenclature (ISCN): nuc nereyda(D5S23,EGR1,D7Z1,F4H022,D8Z2,W00N829,MYBL2)x2[200' This result has been reviewed and approved by Nabila Gonzalez, PhD, [facility] A portion of this analysis was performed at the following location(s): [facility] INTERPRETIVE INFORMATION: MDS Panel by FISH This test was developed and its performance characteristics determined by [facility]. It has not been cleared or approved by the US Food and Drug Administration. This test was performed in a CLIA certified laboratory and is intended for clinical purposes. EER MDS Fish Panel See Note 2023 11:26 AM ABSTRACT CLERK CMP.LY ([facility]) Comment: Authorized individuals can access the UpOut Enhanced Report using the following link: [email or web address] Performed By: [facility] [address] [place] [address] Rest Room Maid: Uche Morley MD, PhD CLIA Number: [id number] Other [employer] SPECIMEN / Unknown Collection / Unknown 03/15/2024 9:05 AM ABSTRACT CLERK 03/15/2024 9:30 AM ABSTRACT CLERK Rodo Perez MD LAB - PATHOLOG Y/CYTOLOGY ORDERABLES CMP.LY [facility]) [address] * FISH AML PANEL BLOOD OR BM RFLX PML/DANTE (03/15/2024 9:05 AM ABSTRACT CLERK) Only the most recent of2 resultswithin the time period is included. [facility] FISH AML Panel See Note Normal 03/25/2024 10:34 AM [facility] ([facility]) Comment: Test Performed: Acute Myeloid Leukemia Panel by FISH (FISHAML) Specimen Type: Bone Marrow Indication for Testing: Myelodysplastic syndrome, unspecified RESULT Normal FISH Result inv(3) or t(3;3) GATA2::MECOM Fusion: ??not detected Deletion 5q: ??not detected Monosomy 7: ??not detected Deletion 7q: ??not detected t(8;21) RUNX1::VVZB1S1 Fusion: ??not detected 11p15 (NUP98) Rearrangement: ??not detected 11q23 (KMT2A) Rearrangement: ??not detected inv(16) or t(16;16) CBFB::MYH11 Fusion: ??not detected INTERPRETATION There was no evidence of GATA2::MECOM (also known as RPN1-EVI1) fusion due to 3q21/3q26.2 inversion or translocation, deletion 5q31, monosomy 7, deletion 7q31, RUNX1::QFIL6O7 fusion due to translocation (8;21)(q21.3;q22), 11p15 (NUP98) rearrangement, 11q23 KMT2A (MLL) rearrangement, or CBFB::MYH11 fusion due to either 16p13.1/16q22 inversion or translocation. This analysis was performed with the AML panel probes RPN1/MECOM, D5S23/EGR1, D7Z1/L2C969, RUNX1/KIQY0E1 ([employer]), NUP98 and CBFB-MYH11 ([employer]), and MLL (KMT2A) ([employer]). A total of 200 cells were scored for each probe. Cytogenomic Nomenclature (ISCN): nuc nereyda(RPN1,MECOM,D5S23,EGR1,D7Z1,X0J783,TFFL7O8,NUP98,KMT2A,MYH11,CBF B,RUNX1)x2[200' This result has been reviewed and approved by Mundo Mejia, PhD, [facility] A portion of this analysis was performed at the following location(s): [facility] -CO#1 INTERPRETIVE INFORMATION: AML Panel by FISH This test was developed and its performance characteristics determined by [facility]. It has not been cleared or approved by the US Food and Drug Administration. This test was performed in a CLIA certified laboratory and is intended for clinical purposes. EER AML Panel by FISH See Note 03/25/2024 10:34 AM ABSTRACT CLERK [facility] [employer] ([facility]) Comment: Authorized individuals can access the [facility] Enhanced Report using the following link: [email or web address] Performed By: [facility] [address] [place] [address] Rest Room Maid: Uche Morley MD, PhD CLIA Number: [id number] Other BONE MARROW SPECIMEN / Unknown Collection / Unknown 03/15/2024 9:05 AM ABSTRACT CLERK 03/15/2024 9:30 AM ABSTRACT CLERK Rodo Perez MD LAB - PATHOLOG Y/CYTOLOGY ORDERABLES [facility] [employer] [facility]) [address] [place] [address], [facility] * FLOW CYTOMETRY BONE MARROW (03/15/2024 9:05 AM ABSTRACT CLERK) Only the most recent of2 resultswithin the time period is included. Case Report Flow Cytometry ?Case: [id number] ? Authorizing Provider: ??Rodo Perez, ?? Collected: ? 03/15/2024 09:05 AM ? MD ? Ordering Location: ? [facility] ACUTE ? Received: ?03/15/2024 09:30 AM ? Pathologist: ? Angeles Rosado MD ? Specimen: ?Bone Marrow ? 03/15/2024 2:40 PM [facility] Final Diagnosis Bone marrow, flow cytometric immunophenotypic analysis: - Paucicellular specimen with increased myeloblasts detected (42.4% of events) - See interpretation 03/15/2024 2:40 PM [facility] Flow Cytometry Interpretation Viability: 92%, [...] specimen has been reviewed for quality assurance intern purposes. Correlation with the concurrent bone marrow biopsy ([id number]) is required. 03/15/2024 2:40 PM [facility] Flow Cytometry Results Differential Result Comment Flow Cell Count /uL 980 Total Viability % 92.0 Lymphocytes % 13 Dim CD45 Region % 55 Monocytes % 2 Granulocytes % 28 03/15/2024 2:40 PM [facility] Reason for test MDS (myelodysplastic syndrome) (HCC) 238.75 03/15/2024 2:40 PM [facility] Client Specimen ID # [id number] 03/15/2024 2:40 PM [facility] Number of markers 24 were performed. A-2 Flow CD10 A-3 Flow CD13 A-5 Flow CD20 A-11 Flow CD2 A-13 Flow CD14 A-16 Flow CD117 A-17 Flow CD11b A-18 Flow CD11c A-1 Flow CD5 A-4 Flow CD19 A-6 Flow CD33 A-7 Flow CD34 A-8 Flow CD45 A-12 Flow CD7 A-14 Flow CD56 A-15 Flow CD64 A-23 cyCD22 A-24 opDP43o A-9 [place]+CD19+ A-10 Lambda+CD19+ A-19 Flow HLA-DR A-20 Flow MPO A-21 Flow TdT A-22 cyCD3 03/15/2024 2:40 PM [facility] Pathologist Location at [facility] 03/15/2024 2:40 PM [facility] Disclaimer Test performed at [facility], [address] [place] [address], [address]. *The established laboratory minimum viability is 70%. [...] high complexity clinical testing. 03/15/2024 2:40 PM ABSTRACT CLERK [facility] Embedded Images 2:40 PM ABSTRACT CLERK [facility] Pathology/Cytolo gy BONE MARROW SPECIMEN / Unknown Collection / Unknown 03/15/2024 9:05 AM ABSTRACT CLERK 03/15/2024 9:30 AM ABSTRACT CLERK Rodo Perez MD LAB - PATHOLOG Y/CYTOLOGY ORDERABLES [facility] [address] [facility] [place] [address], [facility] [phone] * BONE MARROW BIOPSY (STL) (03/15/2024 9:05 AM ABSTRACT CLERK) Only the most recent of2 resultswithin the time period is included. Case Report Bone Marrow Patholog y Report ?Case: [id number] ? Authorizing Provider: ??Rodo Perez, ?? Collected: ? 03/15/2024 09:05 AM ? MD ? Ordering Location: ? [facility] AC[facility] ? Received: ?03/15/2024 09:30 AM ? Pathologist: ? Guillermo Brown MD ? Specimens: ?? A) - Bone Marrow Clot ? B) - Bone Marrow Core ? C) - Bone Marrow Aspirate ? D) - Blood Peripheral ? 03/18/2024 4:01 PM [facility] Final Diagnosis Bone marrow, aspirate, clot section, and core biopsy: - Acute myeloid leukemia. - See description. Peripheral blood smear: - Pancytopenia. - See description. 03/18/2024 4:01 PM [facility] Comment Immunohistochemistry performed show ~30% [...] for a definitive subclassification. 03/18/2024 4:01 PM [facility] Peripheral Smear Description RBC: normocytic anemia. WBC: leukopenia with absolute neutropenia and lymphopenia. No circulating blasts seen. Platelets: decreased in number. 03/18/2024 4:01 PM [facility] Bone Marrow Aspirate Differential count [...] stain): no ring sideroblasts. 03/18/2024 4:01 PM [facility] Bone Marrow Core Biopsy and [...] morphology: peripheral blood only. 03/18/2024 4:01 PM [facility] Flow Cytometry Summary Bone marrow, flow cytometric immunophenotypic analysis ([id number]): - Paucicellular specimen with increased myeloblasts detected (42.4% of events) 03/18/2024 4:01 PM [facility] Clinical History New AML. 03/18/2024 4:01 PM [facility] Gross Description The requisition and [...] in cassette B1. DF 03/18/2024 4:01 PM [facility] Pathologist Location at [facility] 03/18/2024 4:01 PM [facility] Disclaimer The performance characteristics of all immunohistochemical and indirect immunofluorescence stains (if any) cited in this report were determined by the [facility] of [facility]. Some of these tests were developed [...] the attending (teaching) pathologist. 03/18/2024 4:01 PM [facility] Embedded Images 03/18/2024 4:01 PM [facility] Pathology/Cytology PERIPHERAL BLOOD / Unknown Collection / Unknown 03/15/2024 9:05 AM ABSTRACT CLERK 03/15/2024 9:30 AM ABSTRACT CLERK Miscellaneous samples (specimen) BONE MARROW SPECIMEN / Unknown 03/15/2024 9:05 AM ABSTRACT CLERK 03/15/2024 9:30 AM ABSTRACT CLERK Miscellaneous samples (specimen) SPECIMEN FROM BONE MARROW OBTAINED BY ASPIRATION / Unknown 03/15/2024 9:05 AM ABSTRACT CLERK 03/15/2024 9:30 AM ABSTRACT CLERK Miscellaneous samples (specimen) PERIPHERAL BLOOD / Unknown 03/15/2024 9:05 AM ABSTRACT CLERK 03/15/2024 11:39 AM ABSTRACT CLERK Rodo Perez MD LAB - PATHOLOG Y/CYTOLOGY ORDERABLES [facility] [address] [place] [address], [facility] [phone] * MYELOID MALIGNANCIES MUTATION PNL (03/15/2024 9:05 AM ABSTRACT CLERK) Only the most recent of2 resultswithin the time period is included. Interpretation Myeloid Malignancy PNL See Note 03/28/2024 2:06 PM [facility] [employer] ([facility]) Comment: Myeloid Malignancies Mutation Panel NGS Submitted diagnosis or diagnosis under consideration for variant interpretation: Myelodysplastic syndrome, unspecified Note: Prior NGS testing performed on this patient (most recent [facility] accession [id number]) was reviewed in conjunction with the current case to compare molecular variants reported. The previously reported molecular variants DNMT3A, IDH1, and CUX1 are again detected in the current study. In addition, new molecular variants in STAG2, BCOR, JAK2, and CEBPA are now detected. TIER 1: Variants of Known Clinical Significance in Hematologic Malignancies 1. IDH1 c.394C>A, p.Hyn684Dhh (NM_[id number]) VAF: 38.4% IDH1 encodes an enzyme that catalyzes the conversion of isocitrate to alpha-ketoglutarate in the citric acid cycle (23). Somatic mutations of IDH1 are found in 4-12% of patients with myelodysplastic syndrome (MDS).This mutation has been reported in hematologic malignancies (4). The prognostic significance of mutated IDH1 in MDS is uncertain (20) (27) (7) (14) (19) (32). 2. DNMT3A c.2206C>T, p.Ceg633Zfp (NM_[id number]) VAF: 42.2% DNMT3A encodes a DNA [...] stem cell transplantation (2). 3. DNMT3A c.2407A>G, p.Oma033Sca (NM_[id number]) VAF: 38.8% This mutation has also been reported in hematologic malignancies (4). 4. JAK2 c.1849G>T, p.Qse537Sco (NM_004972.4) VAF: 14.4% JAK2 encodes a non-receptor protein tyrosine kinase that regulates STAT base brander factors in response to cytokine receptor signaling (13). JAK2 mutations have been reported in 3-6% of patients with MDS (6) (15) (31). This JAK2 mutation (p.Acp964Hpf) has also been reported in approximately 10-25% of patients with myelodysplastic/myeloproliferative neoplasms (MDS/MPN) (31) (21). This particular JAK2 mutation occurs in the pseudokinase (JH2) domain and leads to activation of the NOLAN-STAT pathway signaling. The prognostic significance of JAK2 mutations in MDS is unclear (6). 5. STAG2 c.1840C>T, p.Dpq534* (NM_[id number]) VAF: 31.7% STAG2 encodes a subunit [...] unmutated cohesin genes (29). 6. BCOR c.3649C>T, p.Ibg2122* (NM_[id number]) VAF: 9.6% BCOR encodes a transcriptional corepressor that interacts with BCL-6 and histone deacetylases (HDACs) (5) (12). Mutations in BCOR are seen in 4% of patients with MDS (5) (11). BCOR mutations in MDS are often frameshift and nonsense mutations that result in cukt-mx-qaxkpvhr (5) (11). This mutation is predicted to alter the normal function of BCOR. BCOR mutations are associated with a higher incidence of AML transformation in MDS patients and shorter overall survival in MDS patients (5) (11) (16). 7. BCOR c.775_638del, p.Jff958Saxpd*3 (NM_[id number]) VAF: 6.2% This mutation is also predicted to alter the normal function of BCOR. TIER 2: Variants of Unknown Clinical Significance in Hematologic Malignancies 1. CEBPA c.1074_*9del, p.*359Cysext*58 (NM_[id number]) VAF: 4.7% CEBPA encodes a protein that is a member of the basic region leucine zipper family of base brander factors (18). Somatic mutations of CEBPA are [...] if any, is uncertain. 2. CUX1 c.3085G>A, p.Olf8262Fih (NM_181552.4) VAF: 44.8% This variant has been rarely reported in hematologic malignancies (1) (10), to the best of our knowledge. References 1: Lynnette P, ??Emmanuelle B, ??Zhanna CLARK et al, Assessment of Minimal Residual Disease by Next Generation Sequencing in Peripheral Blood as a Complementary Tool for Personalized Transplant Monitoring in Myeloid Neoplasms. J Clin Med 2020. PMID:85723392 2: Virginie R, ??Juan HERNANDEZ, ??Ulises Kim et al, Somatic mutations predict poor outcome in patients with myelodysplastic syndrome after hematopoietic stem-cell transplantation. J Clin Oncol 2014. PMID:94780384 3: cBioPortal: http://www.cbioportal.org/ 4: COSMIC: https://cancer.vipin.ac.uk/cosmic 5: Braulio F, ??Yu V, ??Camilla Y et al, BCOR and BCORL1 mutations in myelodysplastic syndromes and related disorders. Blood 2013. PMID:53500339 6: Bill M, ??Jennifer C, ??Víctor L et al, JAK2 Mutations Are Rare and Diverse in Myelodysplastic Syndromes: Case Series and Review of the Literature. Hematol Rep 2022. PMID:01532525 7: Jahaira CD, ??Kamla E, ??Mary Mason et al, IDH1 and IDH2 mutations in myelodysplastic syndromes and role in disease progression. Leukemia 2016. PMID:26227584 8: Asyia I, ??Day C, ??Lenin MURPHY et al, Frequency, onset and clinical impact of somatic DNMT3A mutations in therapy-related and secondary acute myeloid leukemia. Haematologica 2012. PMID:78374587 9: Nuha O, ??Idania D, ??Luanne Payne et al, CEBPA polymorphisms and mutations in patients with acute myeloid leukemia, myelodysplastic syndrome, multiple myeloma and non-Hodgkin's lymphoma. Blood Cells Mol Dis 2008. PMID:65945261 10: Cassandra Kim, ??Cornell Payne, ??Alexis Moreno al, DNA methylation epitypes highlight underlying developmental and disease pathways in acute myeloid leukemia. Genome Res 2020. PMID:91049578 11: Ivan V, ??Jenna E, ??Alondra DEMPSEY et al, Whole-exome sequencing identifies somatic mutations of BCOR in acute myeloid leukemia with normal karyotype. Blood 2011. PMID:75509718 12: Lin KD, ??Yashira W, ??Darcie Estrada et al, BCoR, a novel corepressor involved in BCL-6 repression. Genes Dev 2000. PMID:54260143 13: Fabian SS, ??Jen SJ, ??Amandeep LR et al, Nolan/STAT pathways in cytokine signaling and myeloproliferative disorders: approaches for targeted therapies. Genes Cancer 2010. PMID:80969210 14: Jose J O, ??Charity V, ??Grayson Stroud et al, Mutations of IDH1 and IDH2 genes in early and accelerated phases of myelodysplastic syndromes and MDS/myeloproliferative neoplasms. Leukemia 2010. PMID:77478942 15: Malaika M, ??Catherine C, ??Ahsan Talavera et al, Molecular analysis of myelodysplastic syndrome with isolated deletion of the long arm of chromosome 5 reveals a specific spectrum of molecular mutations with prognostic impact: a study on 123 patients and 27 genes. Haematologica 2017. PMID:13803595 16: Gregoria BAR, ??Meliton T, ??Valerie Payne et al, Spectrum and prognostic relevance of dedicated driver gene mutations in acute myeloid leukemia. Blood 2016. PMID:20086463 17: Nicol T, ??Leal BU, ??Milton Doss et al, Dominant-negative mutations of CEBPA, encoding CCAAT/enhancer binding protein-alpha (C/EBPalpha), in acute myeloid leukemia. Yusra Emely 2001. PMID:33123558 18: Nicol T, Leal BU, Complexity of CEBPA dysregulation in human acute myeloid leukemia. Clin Cancer Res 2009. PMID:71984243 19: Papaemmanuil E, ??Gerstung M, ??Hugh L et al, Clinical and biological implications of dedicated driver mutations in myelodysplastic syndromes. Blood 2013. PMID:35664747 20: Eileen MURPHY, ??Rajinder CHRISTY, ??Juju OTERO et al, Differential prognostic effect of IDH1 versus IDH2 mutations in myelodysplastic syndromes: a [facility] study of 277 patients. Leukemia 2012. PMID:40698178 21: Eileen MURPHY, George TL, Genomics of myelodysplastic syndrome/myeloproliferative neoplasm overlap syndromes. Hematology Am Soc Hematol Educ Program 2020. PMID:65723551 22: Preudhomme C, ??Sagot C, ??Heather N et al, Favorable prognostic significance of CEBPA mutations in patients with de elinor acute myeloid leukemia: a study from the Acute Leukemia [place] Association (JOSE). Blood 2002. PMID:74247030 23: Bulmaro BENTON, Josse H, Isocitrate dehydrogenase 1 and 2 mutations in cancer: alterations at a crossroads of cellular metabolism. J Natl Cancer Inst 2010. PMID:11186670 24: Jose A, ??Ivan V, ??Yudi U et al, [place] analysis of DNMT3A mutations in hematological malignancies. Leukemia 2013. PMID:97946361 25: Kim AH, ??Lisa-Hussein O, ??Arnulfo REINOSO et al, The role of mutations in epigenetic regulators in myeloid malignancies. Yusra Rev Cancer 2012. PMID:90904620 26: Taube F, ??Hubert ISSA, ??Efrem Payne et al, CEBPA mutations in 4708 patients with acute myeloid leukemia: differential impact of bZIP and TAD mutations on outcome. Blood 2021. PMID:03680465 27: Thol F, ??Roverto EM, ??Sam Lynn et al, IDH1 mutations in patients with myelodysplastic syndromes are associated with an unfavorable prognosis. Haematologica 2010. PMID:77132420 28: Thol F, ??Lisa Rubin, ??Bro Valdivia et al, Rare occurrence of DNMT3A mutations in myelodysplastic syndromes. Haematologica 2011. PMID:26386157 29: Josey S, ??Liam SAAB, ??Joan H et al, Genetic alterations of the cohesin complex genes in myeloid malignancies. Blood 2014. PMID:09385004 30: Barrett MERRITT, ??Tono Stroud, ??Jossue Amador et al, Recurrent DNMT3A mutations in patients with myelodysplastic syndromes. Leukemia 2011. PMID:31771243 31: Lawrence Camargo, Juan Diego Kim, Comparison and Implications of Mutational Profiles of Myelodysplastic Syndromes, Myeloproliferative Neoplasms, and Myelodysplastic/Myeloproliferative Neoplasms: A [place]-Analysis. Front Oncol 2020. PMID:36711211 32: Cornell Flower, ??Sarabia F, ??Yuval Flower et al, IDH1 Mutation Is an Independent Inferior Prognostic Indicator for Patients with Myelodysplastic Syndromes. Acta Haematol 2017. PMID:30971480 33: Packer L, Gabriella R, Hieu ALBERTS, DNMT3A in haematological malignancies. Yusra Rev Cancer 2015. PMID:55441021 This result has been reviewed and approved by Jannette Dutta M.D. Low coverage regions: Listed below are regions where the average sequencing depth (number of times a particular nucleotide is sequenced) in at least 20% of the kbynpx-bs-isukhkkw is less than our stringent cutoff of [...] NOTCH1; NPM1*; NRAS; NSD1; PHF6; PIGA; PPM1D; THCK16M; PRPF8; PTPN11; RAD21; RUNX1; SAMD9; SAMD9L; SETBP1; [...] developed and its performance characteristics determined by [facility]. It has not been cleared or approved by the U.S. Food and Drug Administration. This test was performed in a CLIA-certified laboratory and is intended for clinical purposes. Myeloid Malignancy Dx Mds Unspec 03/28/2024 2:06 PM [facility] [email or web address]] CMP.LY ([facility]) Myeloid Malignancy Panel Specimen Bone Marrow 03/28/2024 2:06 PM [facility] [email or web address]] CMP.LY ([facility]) EER Myeloid Malignancy See Note 03/28/2024 2:06 PM [facility] [[email or web address]] CMP.LY ([facility]) Comment: Authorized individuals can access the [employer] Enhanced Report using the following link: [email or web address] Performed By: [facility] [address] [place] [address] Rest Room Maid: Uche Morley MD, PhD CLIA Number: [id number] Other BONE MARROW SPECIMEN / Unknown Collection / Unknown 03/15/2024 9:05 AM ABSTRACT CLERK 03/15/2024 9:30 AM ABSTRACT CLERK Rodo Perez MD LAB - PATHOLOG Y/CYTOLOGY ORDERABLES Performing Organization Address [facility] Co de Phone Number [facility] ([facility]) [address] [place], [place] [address] * LAB MISC TEST (NOT BLOOD) (03/15/2024 9:05 AM ABSTRACT CLERK) Only the most recent of3 resultswithin the time period is included. Test Name Tp53 03/21/2024 12:06 PM ABSTRACT CLERK [facility] REF LAB NON INTERF Test Result See Scanned Report 03/21/2024 12:06 PM ABSTRACT CLERK [facility] REF LAB NON INTERF Comment Ref Lab 03/21/2024 12:06 PM ABSTRACT CLERK [facility] REF LAB NON INTERF Other BONE MARROW SPECIMEN / Unknown Collection / Unknown 03/15/2024 9:05 AM ABSTRACT CLERK 03/15/2024 9:30 AM ABSTRACT CLERK Rodo Perez MD LAB - BODY FLU ID ORDERABLES Performing Organization Address City/[facility]/ZIP Co de Phone Number [facility] REF LAB NON INTERF [address] [place] [address], [facility] [phone] * FISH PML/DANTE PANEL (03/15/2024 9:05 AM ABSTRACT CLERK) Only the most recent of2 resultswithin the time period is included. Pathologist [facility] EER PML/DANTE Translocation by Fish See Note 03/17/2024 4:41 PM ABSTRACT CLERK [facility] [employer] ([facility]) Comment: Authorized individuals can access the [facility] Enhanced Report using the following link: [email or web address] Performed By: [facility] [address] [place] [address] Rest Room Maid: Uche Morley MD, PhD [facility] Number: [id number] PML/DANTE Translocation by FISH See Note 03/17/2024 4:41 PM ABSTRACT CLERK [facility] ([facility]) Comment: Test Performed: PML-DANTE Translocation by FISH (FISH PML) Specimen Type: Bone Marrow Indication for Testing: MDS RESULT Normal FISH Result t(15;17) PML::DANTE ??Fusion: ??not detected INTERPRETATION There was no evidence of PML::DANTE fusion due to translocation (15;17)(q24;q21). This analysis was performed with the PML/DANTE probes ([employer]). A total of 200 cells were scored. Cytogenomic Nomenclature (ISCN): nuc nereyda(PML,DANTE)x2[200' This result has been reviewed and approved by Nabila Gonzalez, PhD, [facility] A portion of this analysis was performed at the following location(s): [facility] -[place]#2 INTERPRETIVE INFORMATION: PML/DANTE Translocation by FISH This test was developed and its performance characteristics determined by [facility]. It has not been cleared or approved by the US Food and Drug Administration. This test was performed in a CLIA certified laboratory and is intended for clinical purposes. Other BONE MARROW SPECIMEN / Unknown Collection / Unknown 03/15/2024 9:05 AM ABSTRACT CLERK 03/15/2024 9:30 AM ABSTRACT CLERK Rodo Perez MD LAB - PATHOLOG Y/CYTOLOGY ORDERABLES CMP.LY [facility]) [address] [place], [place] [address] * CHROMOSOME ANALYSIS BONE MARROW PANEL (03/15/2024 9:05 AM ABSTRACT CLERK) [facility] Chromosome Analysis Bone Marrow See Note Normal 03/22/2024 11:01 AM ABSTRACT CLERK [facility] ([facility]) Comment: Test Performed: Chromosome Analysis Specimen Type: [...] study. NOTE: Concurrent FISH PML performed under [facility] accession [id number] was NORMAL. FISHAML and FISH MDS P are PENDING and will be reported under [facility] accessions [id number] and [id number]. This result has been reviewed and approved by Randall Yun, PhD, [facility] A portion of this analysis was performed at the following location(s): [facility] -[place]#2 [facility] Site [place]#3 [facility] Site -[place]#4 [facility] Site -[place]#1 INTERPRETIVE INFORMATION: Chromosome Analysis, Bone Marrow This test was developed and its performance characteristics determined by [employer] [employer]. It has not been cleared or approved by the US Food and Drug Administration. This test was performed in a CLIA certified laboratory and is intended for clinical purposes. EER Chromosome Analysis Bone Marrow See Note 03/22/2024 11:01 AM ABSTRACT CLERK [facility] [employer] ([facility]) Comment: Authorized individuals can access the [facility] Enhanced Report using the following link: [email or web address] Performed By: [facility] [address] [place] [address] Rest Room Maid: Uche Morley MD, PhD CLIA Number: [id number] Bone marrow BONE MARROW SPECIMEN / Unknown 03/15/2024 9:05 AM ABSTRACT CLERK 03/15/2024 9:30 AM ABSTRACT CLERK Rodo Perez MD LAB - PATHOLOG Y/CYTOLOGY ORDERABLES [facility] [employer] ([facility]) [address] [place] [address], [facility] * FLOW CYTOMETRY BLOOD PROFILE (03/14/2024 10:32 AM ABSTRACT CLERK) Case Report Flow Cytometry ?Case: [id number] ? Authorizing Provider: ??Ghanshyam Dewey PA-C ? Collected: ? 03/14/2024 10:32 AM ? Ordering Location: ? [facility] 7N ACUTE ? Received: ?03/14/2024 01:49 PM ? Pathologist: ? Angeles Rosado MD ? Specimen: ?Blood ? 03/14/2024 4:58 PM [facility] Final Diagnosis Peripheral blood, flow cytometric immunophenotypic analysis: - 1.2% myeloblasts detected - No evidence of a monoclonal B-cell population - See interpretation 03/14/2024 4:58 PM [facility] Flow Cytometry Results Differential Result Comment WBC Count /uL 1,200 Total Viability % 100.0 Lymphocytes % 80 Dim CD45 Region % 4 Monocytes % 4 Granulocytes % 13 03/14/2024 4:58 PM [facility] Flow Cytometry Interpretation Viability: 100% B-cells: polytypic, kappa:lambda ratio 1.1:1. Blasts: 1.2% of events are myeloblasts. Monocytes are mature. A peripheral blood smear prepared from the flow cytometry specimen has been reviewed for quality assurance intern purposes. 03/14/2024 4:58 PM [facility] Reason for test MDS (myelodysplastic syndrome) (HCC) 238.75 03/14/2024 4:58 PM [facility] Client Specimen ID # [id number] 03/14/2024 4:58 PM [facility] Pathologist [facility] at [facility] 03/14/2024 4:58 PM [facility] Disclaimer Test performed at [facility], [address] [place] [address], [address]. *The established laboratory minimum viability is 70%. [...] high complexity clinical testing. 03/14/2024 4:58 PM ABSTRACT CLERK [facility] Embedded Images 4:58 PM ABSTRACT CLERK [facility] Number of markers 19 were performed. A-2 Flow CD10 A-3 Flow CD13 A-5 Flow CD20 A-11 Flow CD2 A-13 Flow CD14 A-16 Flow CD117 A-17 Flow CD11b A-18 Flow CD11c A-1 Flow CD5 A-4 Flow CD19 A-6 Flow CD33 A-7 Flow CD34 A-8 Flow CD45 A-12 Flow CD7 A-14 Flow CD56 A-15 Flow CD64 A-9 [place]+CD19+ A-10 Lambda+CD19+ A-19 Flow HLA-DR 03/14/2024 4:58 PM ABSTRACT CLERK [facility] Blood BLOOD SPECIMEN / Unknown Lab Venipuncture / Unknown 03/14/2024 10:32 AM ABSTRACT CLERK 03/14/2024 1:49 PM ABSTRACT CLERK Ghanshyam Dewey PA-C LAB - PATHOLOGY/CYTO LOGY ORDERABLES Performing Organization Address City/State/[facility] Co de Phone Number [facility] [address] [phone] * CYTOMEGALOVIRUS (CMV) QUANTITATIVE PLASMA (03/13/2024 11:26 PM ABSTRACT CLERK) CMV Quant by PCR, Interp Not detected Not detected 03/14/2024 9:00 AM [facility] Blood BLOOD SPECIMEN / Unknown Venipuncture / Unknown 03/13/2024 11:26 PM ABSTRACT CLERK 03/13/2024 11:37 PM ABSTRACT CLERK Narrative [facility] - 03/14/2024 9:00 AM ABSTRACT CLERK The Cytomegalovirus (CMV) DNA analysis utilized [...] Soler MD LAB - CHEMISTRY OR DERABLES [facility] [address] [place] [address], [facility] [phone] * QUINN-TOVAR VIRUS QUANT BLOOD STL (03/13/2024 11:26 PM ABSTRACT CLERK) EBV Quant by PCR, Interp Not detected Not detected 03/14/2024 8:56 AM ABSTRACT CLERK [facility]OLOGY Specimen Type Plasma 03/14/2024 8:56 AM ABSTRACT CLERK [facility] Blood BLOOD SPECIMEN / Unknown Venipuncture / Unknown 03/13/2024 11:26 PM ABSTRACT CLERK 03/13/2024 11:37 PM ABSTRACT CLERK Narrative [facility] MICROBIOLOGY - 03/14/2024 8:56 AM ABSTRACT CLERK The Quinn-Tovar viral (EBV) DNA analysis [...] FDA approved test methodology Bruce sharon EBV. eTd Soler MD LAB - CHEMISTRY OR DERABLES [facility] [address] [place] [address], [facility] [phone] * D-DIMER (03/13/2024 11:26 PM ABSTRACT CLERK) Pathologist [facility] D-Dimer Quantitative <0.27 <=0.50 mcg/mL FEU 03/14/2024 12:00 AM ABSTRACT CLERK [facility] Comment: In the absence of [...] Unknown Venipuncture / Unknown 03/13/2024 11:26 PM ABSTRACT CLERK 03/13/2024 11:37 PM ABSTRACT CLERK Ted Soler MD LAB - COAGULATION ORDERABLES [facility] [address] [place] [address], [facility] [phone] * FIBRINOGEN ACTIVITY (03/13/2024 11:26 PM ABSTRACT CLERK) [facility] Fibrinogen Clauss 362 200 - 400 mg/dL 03/13/2024 11:59 PM ABSTRACT CLERK [facility] Blood BLOOD SPECIMEN / Unknown Venipuncture / Unknown 03/13/2024 11:26 PM ABSTRACT CLERK 03/13/2024 11:37 PM ABSTRACT CLERK Ted Soler MD LAB - COAGULATION ORDERABLES Performing Organization Address City/[facility]/ZIP Co de Phone Number [facility] [address] [place] [address], [facility] [phone] * FISH AML+MDS PANEL BLOOD OR BONE MARROW (03/04/2024 4:13 PM ABSTRACT CLERK) [facility] AML with MDS, Therapy-Rltd AML See Note Normal 03/19/2024 4:32 PM ABSTRACT CLERK [facility] ([facility]) Comment: Test Performed: Acute Myelogenous Leukemia (AML) [...] with the Therapy-Related AML panel probes D5S23/EGR1, D7Z1/O0L971, and MLL (KMT2A) (CytoCell). A total of 200 cells were scored for each probe. Cytogenomic Nomenclature (ISCN): nuc nereyda(D5S23,EGR1,D7Z1,U6F308,KMT2A)x2[200' This result has been reviewed and approved by Charles Pablo MD, [facility] INTERPRETIVE INFORMATION: AML with MDS, Therapy-Related AML, FISH This test was developed and its performance characteristics determined by [employer]. It has not been cleared or approved by the US Food and Drug Administration. This test was performed in a CLIA certified laboratory and is intended for clinical purposes. EER AML with MDS, Therapy-Rltd AML FISH See Note 03/19/2024 4:32 PM ABSTRACT CLERK [facility] ([facility]) Comment: Authorized individuals can access the [employer] Enhanced Report using the following link: [email or web address] Performed By: [facility] [address] [place] [address] Rest Room Maid: Uche Morley MD, PhD CLIA Number: [id number] Other BLOOD SPECIMEN / Unknown Collection / Unknown 03/04/2024 4:13 PM ABSTRACT CLERK 03/04/2024 4:23 PM ABSTRACT CLERK Cindy Garcia MD LAB - PATHOLOGY/CYTO LOGY ORDERABLES Performing Organization Address [facility]/State/[facility] Co de Phone Number [facility]) [address] * HLA TYPING LOW/HIGH RESOLUTION DPB1 (03/04/2024 4:13 PM ABSTRACT CLERK) Typ DNA LR DPB1 Allele #1 *04 04/29/2024 2:56 PM ABSTRACT CLERK [facility] ([facility]) Typ DNA LR DPB1 Allele #2 *11 04/29/2024 2:56 PM ABSTRACT CLERK [facility] ([facility]) Typ DNA HR DPB1 Allele #1 *04:01:01G 04/29/2024 2:56 PM ABSTRACT CLERK [facility] ([facility]) Typ DNA HR DPB1 Allele #2 *11:01:01G 04/29/2024 2:56 PM ABSTRACT CLERK [facility] ([facility]) Test Methodology RTPCR/NGS 04/29/19 2:56 PM ABSTRACT CLERK [facility] ([facility]) Date Results Entered [id number] 04/29/2024 2:56 PM ABSTRACT CLERK [facility] ([facility]) Comment: Methodology - Next Generation Sequencing ?? This test was developed and its performance characteristics determined by ?? the [facility]. ??It has not been cleared or [...] complexity ?? clinical laboratory testing. ??CLIA ID# [id number] ?? Performed at: [facility], [address] [place] [address] ?? [place] ?? [address] ?? Wet Pan Mixer: Sandeep Jerry, Ph.D., D([facility]), Blood BLOOD SPECIMEN / Unknown Lab Venipuncture / Unknown 03/04/2024 4:13 PM ABSTRACT CLERK 03/05/2024 9:56 AM ABSTRACT CLERK Cindy Garcia MD LAB - BLOOD BANK ORD ERABLES [facility] ([facility]) [address] * HLA TYPING DNA LOW RESOLUTION DR,DQ (03/04/2024 4:13 PM ABSTRACT CLERK) DR DQ Low Resolution DRB1-1 *07 04/29/2024 2:56 PM ABSTRACT CLERK [facility] ([facility]) DR DQ Low Resolution DQB1-1 *02 04/29/2024 2:56 PM ABSTRACT CLERK [facility] ([facility]) DR DQ Low Resolution DRB3-1 Negative 04/29/2024 2:56 PM ABSTRACT CLERK [facility] ([facility]) DR DQ Low Resolution DRB3-2 Negative 04/29/2024 2:56 PM ABSTRACT CLERK [facility] ([facility]) DR DQ Low Resolution DRB4-1 *01 04/29/2024 2:56 PM ABSTRACT CLERK [facility] ([facility]) DR DQ Low Resolution DRB4-2 Negative 04/29/2024 2:56 PM ABSTRACT CLERK [facility] ([facility]) DR DQ Low Resolution DRB5-1 Negative 04/29/2024 2:56 PM ABSTRACT CLERK [facility] ([facility]) DR DQ Low Resolution DRB5-2 Negative 04/29/2024 2:56 PM ABSTRACT CLERK [facility] ([facility]) DR DQ Low Resolution Methodology Real Time PCR 04/29/2024 2:56 PM ABSTRACT CLERK [facility] ([facility]) DR DQ Low Resolution test date [id number] 04/29/2024 2:56 PM ABSTRACT CLERK [facility] ([facility]) Comment: Methodology - Real-Time PCR ?? This test was developed and its performance characteristics determined by ?? the [facility]. ??It has not been cleared or [...] complexity ?? clinical laboratory testing. ??CLIA ID# [id number] ?? Performed at: [facility], [address] [place], [place] [address]ta [facility] ?? [facility] ??[address] ?? Wet Pan Mixer: Sandeep Jerry, Ph.D., D([facility]), Blood BLOOD SPECIMEN / Unknown Lab Venipuncture / Unknown 03/04/2024 4:13 PM ABSTRACT CLERK 03/05/2024 9:56 AM ABSTRACT CLERK Cindy Garcia MD LAB - BLOOD BANK ORD ERABLES [facility] ([facility]) [address] [place] [address] * HLA TYPING DNA LOW RESOLUTION A,B,C (03/04/2024 4:13 PM ABSTRACT CLERK) ABC DNA A1 *02 04/29/2024 2:56 PM ABSTRACT CLERK [facility] ([facility]) ABC DNA A2 *30 04/29/2024 2:56 PM ABSTRACT CLERK [facility] ([facility]) ABC DNA B1 *13 04/29/2024 2:56 PM ABSTRACT CLERK [facility] ([facility]) ABC DNA B2 *44 04/29/2024 2:56 PM ABSTRACT CLERK [facility] ([facility]) ABC DNA BW1 4 04/29/2024 2:56 PM ABSTRACT CLERK [facility] ([facility]) ABC DNA BW2 4 04/29/2024 2:56 PM ABSTRACT CLERK [facility] ([facility]) ABC DNA C1 *06 04/29/2024 2:56 PM ABSTRACT CLERK [facility] ([facility]) ABC DNA C2 *16 04/29/2024 2:56 PM ABSTRACT CLERK [facility] ([facility]) ABC DNA Methodology Real Time PCR 04/29/2024 2:56 PM ABSTRACT CLERK [facility] ([facility]) ABC DNA Test Date [id number] 2:56 PM ABSTRACT CLERK [facility] ([facility]) Comment: Methodology - Real-Time PCR ?? This test was developed and its performance characteristics determined by ?? the [facility]. ??It has not been cleared or [...] complexity ?? clinical laboratory testing. ??CLIA ID# [id number] ?? Performed at: [facility], [address] [place] [address] ?? [place] ??[address] ?? Wet Pan Mixer: Sandeep Jerry, Ph.D., D([facility]), Blood BLOOD SPECIMEN / Unknown Lab Venipuncture / Unknown 03/04/2024 4:13 PM ABSTRACT CLERK 03/05/2024 9:56 AM ABSTRACT CLERK Cindy Garcia MD LAB - BLOOD BANK ORD ERABLES [facility] ([employer]) [address] * HLA TYPING DNA HIGH RESOLUTION DR (03/04/2024 4:13 PM ABSTRACT CLERK) Blood BLOOD SPECIMEN / Unknown Lab Venipuncture / Unknown 03/04/2024 4:13 PM ABSTRACT CLERK 03/05/2024 9:56 AM ABSTRACT CLERK Narrative [facility] ([employer]) - 04/29/2024 4:00 PM ABSTRACT CLERK See Scanned Report Cindy Garcia MD LAB - BLOOD BANK ORD ChippmunkBLES Performing Organization Address City/[facility] Co de Phone Number [facility] ([employer]) [address] [place] [address], [facility] * HLA TYPING DNA HIGH RESOLUTION DQ (03/04/2024 4:13 PM ABSTRACT CLERK) Blood BLOOD SPECIMEN / Unknown Lab Venipuncture / Unknown 03/04/2024 4:13 PM ABSTRACT CLERK 03/05/2024 9:56 AM ABSTRACT CLERK Narrative [facility] ([employer]) - 04/29/2024 4:00 PM ABSTRACT CLERK See Scanned Report Cindy Garcia MD LAB - BLOOD BANK ORD ChippmunkBLES Performing Organization Address City/[facility]/ZIP Co de Phone Number [facility] ([employer]) [address] [place] [address], [facility] * HLA TYPING DNA HIGH RESOLUTION B (03/04/2024 4:13 PM ABSTRACT CLERK) Blood BLOOD SPECIMEN / Unknown Lab Venipuncture / Unknown 03/04/2024 4:13 PM ABSTRACT CLERK 03/05/2024 9:56 AM ABSTRACT CLERK Narrative [facility] ([employer]) - 04/29/2024 4:00 PM ABSTRACT CLERK See Scanned Report Cindy Garcia MD LAB - BLOOD BANK ORD ERABLES Performing Organization Address City/[facility]/ZIP Co de Phone Number [facility] ([employer]) [address] * HLA TYPING DNA HIGH RESOLUTION A (03/04/2024 4:13 PM ABSTRACT CLERK) Blood BLOOD SPECIMEN / Unknown Lab Venipuncture / Unknown 03/04/2024 4:13 PM ABSTRACT CLERK 03/05/2024 9:56 AM ABSTRACT CLERK Narrative [facility] ([facility]) - 04/29/2024 4:01 PM ABSTRACT CLERK See Scanned Report Cindy Garcia MD LAB - BLOOD BANK ORD HEMALATHA Performing Organization Address [facility] Co de Phone Number [facility] ([employer]) [address] * HLA TYPING DNA HIGH RESOLUTION C (03/04/2024 4:13 PM ABSTRACT CLERK) Blood BLOOD SPECIMEN / Unknown Lab Venipuncture / Unknown 03/04/2024 4:13 PM ABSTRACT CLERK 03/05/2024 9:56 AM ABSTRACT CLERK Narrative [facility] ([facility]) - 04/29/2024 4:01 PM ABSTRACT CLERK See Scanned Report Cindy Garcia MD LAB - BLOOD BANK ORD HEMALATHA Performing Organization Address [facility] Co de Phone Number [facility] ([employer]) [facility] * CHROMOSOME ANALYSIS LEUKEMIA BLD (03/04/2024 4:13 PM ABSTRACT CLERK) Chromosome Analysis Leukemic Blood See Note Normal 03/23/2024 12:39 PM ABSTRACT CLERK [facility] [employer] ([facility]) Comment: Test Performed: Chromosome Analysis Specimen Type: [...] FISH AML/PML and TAML MDS performed under [facility] accessions [id number] and [id number] were NORMAL. This result has been reviewed and approved by Margaret Roberson, PhD, [facility] INTERPRETIVE INFORMATION: Chromosome Analysis, ?Leukemic Blood This test was developed and its performance characteristics determined by [facility]. It has not been cleared or approved by the US Food and Drug Administration. This test was performed in a CLIA certified laboratory and is intended for clinical purposes. EER Chromosome Analysis Leukemic See Note 03/23/2024 12:39 PM ABSTRACT CLERK [facility] ([facility]) Comment: Authorized individuals can access the [employer]Out Enhanced Report using the following link: [email or web address] Performed By: [facility] [address] [place] [address] Rest Room Maid: Uche Morley MD, PhD CLIA Number: [id number] Blood BLOOD SPECIMEN / Unknown Lab Venipuncture / Unknown 03/04/2024 4:13 PM ABSTRACT CLERK 03/22/2024 5:28 PM ABSTRACT CLERK Cindy Garcia MD LAB - PATHOLOGY/CYTO LOGY ORDERABLES [facility] [employer] [facility]) [address] [place] [address], [facility] * HIV-1 HIV-2 ANTIBODY + HIV P24 AG PANEL (New on 08/24) (03/04/2024 4:13 PM ABSTRACT CLERK) [facility] HIV Antigen/Antibod y 1 & 2 Non-reacti ve Non-react carlos 03/04/2024 5:12 PM ABSTRACT CLERK [facility] Comment:No Laboratory eviden ce of HIV infection. Blood BLOOD SPECIMEN / Unknown Lab Venipuncture / Unknown 03/04/2024 4:13 PM ABSTRACT CLERK 03/04/2024 4:23 PM ABSTRACT CLERK Cindy Garcia MD LAB - CHEMISTRY ORDE RABNIC Performing Organization Address [facility]/ZIP Co de Phone Number [facility] [address] [place] [address], [facility] [phone] * BCR-ABL1 CML+AML PCR QUANT PNL (03/04/2024 4:13 PM ABSTRACT CLERK) [facility] Interpretation TNP 03/13/2024 5:08 PM ABSTRACT CLERK [facility] ([facility]) Comment: Unable to obtain results. Repeated efforts to analyze this specimen have been unsuccessful. LOW CONTROL GENE COPY NUMBER INDICATED SPECIMEN DEGRADATION. Director Review Comment 5:08 PM ABSTRACT CLERK [facility] ([facility]) Comment: Dawood Sarabia, PhD, [facility] ?Director, Molecular Oncology ?[facility] ?[place] [address] ? Background Comment 03/13/2024 5:08 PM ABSTRACT CLERK [facility] ([facility]) Comment: This assay can detect three different [...] as indicated. Methodology Comment 03/13/2024 5:08 PM ABSTRACT CLERK [facility] ([facility]) Comment: Total RNA is isolated from the [...] developed and its performance characteristics determined by [facility]. It has not been cleared or approved by the Food and Drug Administration. Blood BLOOD SPECIMEN / Unknown Lab Venipuncture / Unknown 03/04/2024 4:13 PM ABSTRACT CLERK 03/04/2024 4:24 PM ABSTRACT CLERK Narrative [facility] ([facility]) - 03/13/2024 5:08 PM ABSTRACT CLERK Performed at: ??01 - [facility] [address] [place], [place] ??[id number] Wet Pan Mixer: Cinthya [facility], Phone: ??[phone] Performed at: ??02 - [facility] [address] [place], [place] ??[id number] Wet Pan Mixer: Cinthya [facility], Phone: ??[phone] Cindy Garcia MD LAB - CHEMISTRY CHELI MONREAL [facility] ([facility]) [address] [place] [address], [facility] * TSH REFLEX FREE T4 (03/04/2024 4:13 PM ABSTRACT CLERK) [facility] TSH 0.961 0.350 - 4.940 uIU/mL 03/04/2024 5:29 PM ABSTRACT CLERK [facility] Blood BLOOD SPECIMEN / Unknown Lab Venipuncture / Unknown 03/04/2024 4:13 PM ABSTRACT CLERK 03/04/2024 4:27 PM ABSTRACT CLERK Cindy Garcia MD LAB - CHEMISTRY CHELI MONREAL Performing Organization Address City/[facility]/ZIP Co de Phone Number [address] [address], [place] [phone] * RHEUMATOID FACTOR BLOOD QUANTITATIVE (03/04/2024 4:13 PM ABSTRACT CLERK) [facility] Rheumatoid Factor <15 <30 IU/mL 03/04/2024 4:57 PM ABSTRACT CLERK [facility] Rheumatoid Factor Screen Negative Negative 03/04/2024 4:57 PM ABSTRACT CLERK [facility] Blood BLOOD SPECIMEN / Unknown Lab Venipuncture / Unknown 03/04/2024 4:13 PM ABSTRACT CLERK 03/04/2024 4:23 PM ABSTRACT CLERK Cindy Garcia MD LAB - CHEMISTRY CHELI MONREAL Performing Organization Address [facility] Co de Phone Number [address] [address], [place] [phone] * CYTOMEGALOVIRUS ANTIBODY IGG BLOOD (03/04/2024 4:13 PM ABSTRACT CLERK) [facility] Cytomegalovirus Antibody IgG <0.20 <=0.70 U/mL 03/05/2024 9:27 PM ABSTRACT CLERK [facility] ([facility]) Comment: INTERPRETIVE INFORMATION: Cytomegalovirus Antibody, IgG ??0.59 [...] laboratory at the same time. Performed By: [facility] [address] [place] [address] Rest Room Maid: Uche Morley MD, PhD CLIA Number: [id number] Blood BLOOD SPECIMEN / Unknown Lab Venipuncture / Unknown 03/04/2024 4:13 PM ABSTRACT CLERK 03/04/2024 4:23 PM ABSTRACT CLERK Cindy Garcia MD LAB - CHEMISTRY CHELI MONREAL [address] [place] [address] * C-REACTIVE PROTEIN (03/04/2024 4:13 PM ABSTRACT CLERK) [facility] C-Reactive Protein 0.5 <=0.5 mg/dL 03/04/2024 4:56 PM ABSTRACT CLERK [facility] Blood BLOOD SPECIMEN / Unknown Lab Venipuncture / Unknown 03/04/2024 4:13 PM ABSTRACT CLERK 03/04/2024 4:27 PM ABSTRACT CLERK Cindy Garcia MD LAB - CHEMISTRY CHELI MONREAL [address] [address], [facility] [phone] * MARLINE BLOOD SCREEN W/REFLEX TITER (03/04/2024 4:13 PM ABSTRACT CLERK) [facility] MARLINE IgG None Detected None Detected 03/05/2024 11:42 PM ABSTRACT CLERK [facility]) Comment: If suspicion of connective tissue disease is strong and MARLINE EIA is negative, consider testing for MARLINE by IFA ([id number]). INTERPRETIVE INFORMATION: Anti-Nuclear Antibodies (MARLINE), IgG by TOÑA Antinuclear Antibodies (MARLINE), IgG by TOÑA: MARLINE specimens are screened using enzyme-linked immunosorbent assay (TOÑA) methodology. All TOÑA results reported as Detected are further tested by indirect fluorescent assay (IFA) using HEp-2 substrate with an IgG-specific conjugate. The MARLINE TOÑA screen is designed to detect antibodies against dsDNA, histones, SS-A (Ro), SS-B (La), Pimentel, Pimentel/PARTITION MAKING MACHINE OPERATOR, Scl-70, Mey-1, centromeric proteins, other antigens extracted from the HEp-2 cell nucleus. MARLINE TOÑA assays have been reported to have lower sensitivities than MARLINE IFA for systemic autoimmune rheumatic diseases (SARD). Negative results do not necessarily rule out SARD. Performed By: [facility] [employer] [address] [place] [address] Rest Room Maid: Uche Morley MD, PhD CLIA Number: [id number] Blood BLOOD SPECIMEN / Unknown Lab Venipuncture / Unknown 03/04/2024 4:13 PM ABSTRACT CLERK 03/04/2024 4:23 PM ABSTRACT CLERK Cindy Garcia MD LAB - CHEMISTRY ORDNatalie [facility] [employer] ([facility]) [address] [place] [address], [facility] * ZINC BLOOD (03/04/2024 4:13 PM ABSTRACT CLERK) Zinc 62.4 60.0 - 120.0 ug/dL 03/06/2024 6:35 AM ABSTRACT CLERK [facility] [employer] ([facility]) Comment: INTERPRETIVE INFORMATION: Zinc, Serum or Plasma [...] developed and its performance characteristics determined by [employer]. It has not been cleared or approved by the [place] Food and Drug Administration. This test was performed in a CLIA certified laboratory and is intended for clinical purposes. Performed By: [facility] [employer] [address] [place] [address] Rest Room Maid: Uche Morley MD, PhD CLIA Number: [id number] Blood BLOOD SPECIMEN / Unknown Lab Venipuncture / Unknown 03/04/2024 4:13 PM ABSTRACT CLERK 03/04/2024 4:23 PM ABSTRACT CLERK Cindy Garcia MD LAB - CHEMISTRY ORDE JOCELIN [facility] [employer] [facility]) [address] [place] [address], [facility] * COPPER BLOOD (03/04/2024 4:13 PM ABSTRACT CLERK) Copper 108.5 70.0 - 140.0 ug/dL 03/06/2024 6:35 AM ABSTRACT CLERK [facility] [employer] ([facility]) Comment: INTERPRETIVE INFORMATION: Copper, Serum or Plasma [...] developed and its performance characteristics determined by [employer]. It has not been cleared or approved by the US Food and Drug Administration. This test was performed in a CLIA certified laboratory and is intended for clinical purposes. Performed By: [employer] [address] [place] [address] Rest Room Maid: Uche Morley MD, PhD CLIA Number: [id number] Blood BLOOD SPECIMEN / Unknown Lab Venipuncture / Unknown 03/04/2024 4:13 PM ABSTRACT CLERK 03/04/2024 4:23 PM ABSTRACT CLERK Cindy Garcia MD LAB - CHEMISTRY ORDE JOCELIN [facility] ([facility]) [address] * ERYTHROCYTE SEDIMENTATION RATE (03/04/2024 4:13 PM ABSTRACT CLERK) Erythrocyte Sedimentation Rate Westergren 14 0 - 20 MM/HR 03/04/2024 5:10 PM ABSTRACT CLERK [facility] Blood BLOOD SPECIMEN / Unknown Lab Venipuncture / Unknown 03/04/2024 4:13 PM ABSTRACT CLERK 03/04/2024 4:27 PM ABSTRACT CLERK Cindy Garcia MD LAB - HEMATOLOGY ORD ERABLES [facility] [address] [place] [address], [facility] [phone] * HEPATITIS B SURFACE ANTIBODY (03/04/2024 4:13 PM ABSTRACT CLERK) Hepatitis B Virus Surface Antibody Non-react carlos Non-react carlos 03/04/2024 5:12 PM ABSTRACT CLERK [facility] Comment: < 8 mIU/mL Hepatitis B surface Antibody (HBsAb). Nonreactive for HBsAb - individual is considered not immune to Hepatitis B Virus infection. Hepatitis B Surface Antibody Quantitative 0.3 <8.0 mIU/mL 03/04/2024 5:12 PM ABSTRACT CLERK [facility] Comment: Hepatitis B Surface Antibody Numeric Result Interpretation: ? Nonreactive: ?<8.0 mIU/mL ? Indeterminate: ??8.0 - 12.0 mIU/mL ? Reactive: ?>12.0 mIU/mL ? Blood BLOOD SPECIMEN / Unknown Lab Venipuncture / Unknown 03/04/2024 4:13 PM ABSTRACT CLERK 03/04/2024 4:23 PM ABSTRACT CLERK Cindy Garcia MD LAB - CHEMISTRY CHELI MONREAL [facility] [address] [place] [address], [place] [phone] * HEPATITIS B CORE ANTIBODY TOTAL (03/04/2024 4:13 PM ABSTRACT CLERK) HBc Antibody Total Non-reacti ve Non-reacti ve 03/04/2024 5:12 PM ABSTRACT CLERK [facility] Blood BLOOD SPECIMEN / Unknown Lab Venipuncture / Unknown 03/04/2024 4:13 PM ABSTRACT CLERK 03/04/2024 4:23 PM ABSTRACT CLERK Cindy Garcia MD LAB - CHEMISTRY CHELI MONREAL Performing Organization Address City/[facility]/ZIP Co de Phone Number [address] [address], [place] [phone] * FOLATE (03/04/2024 4:13 PM ABSTRACT CLERK) Folate 17.7 7.0 - 31.4 ng/mL 03/04/2024 5:29 PM ABSTRACT CLERK [facility] Blood BLOOD SPECIMEN / Unknown Lab Venipuncture / Unknown 03/04/2024 4:13 PM ABSTRACT CLERK 03/04/2024 4:27 PM ABSTRACT CLERK Cindy Garcia MD LAB - CHEMISTRY [place] [address] [address], [place] [phone] * VITAMIN B12 (03/04/2024 4:13 PM ABSTRACT CLERK) Vitamin B12 524 213 - 816 pg/mL 03/04/2024 5:29 PM ABSTRACT CLERK [facility] Blood BLOOD SPECIMEN / Unknown Lab Venipuncture / Unknown 03/04/2024 4:13 PM ABSTRACT CLERK 03/04/2024 4:27 PM ABSTRACT CLERK Cindy Garcia MD LAB - CHEMISTRY [place] [address] [address], [place] [phone] * (ABNORMAL) IRON + TRANSFERRIN PANEL [w/Transferrin Sat % + TIBC] (03/04/2024 4:13 PM ABSTRACT CLERK) [facility] Iron 31(L) 50 - 175 ug/dL 03/04/2024 4:53 PM ABSTRACT CLERK [facility] Transferrin 257 174 - 382 mg/dL 03/04/2024 4:53 PM ABSTRACT CLERK [facility] Transferrin Saturation % 10(L) 16 - 50 % 03/04/2024 4:53 PM [facility] TIBC Calculated 321 240 - 450 ug/dL 03/04/2024 4:53 PM ABSTRACT CLERK [facility] Blood BLOOD SPECIMEN / Unknown Lab Venipuncture / Unknown 03/04/2024 4:13 PM ABSTRACT CLERK 03/04/2024 4:23 PM ABSTRACT CLERK Cindy Garcia MD LAB - CHEMISTRY CHELI MONREAL Performing Organization Address City/[facility]/ZIP Co de Phone Number [address] [address], [place] [phone] * HEPATITIS C ANTIBODY (03/04/2024 4:13 PM ABSTRACT CLERK) [facility] Hepatitis C Antibody Non-react carlos Non-reac tive 03/04/2024 5:12 PM ABSTRACT CLERK [facility] Comment:Hepatitis C Antibody screen indicates no serologic evidence of past or current infection with Hepatitis C Virus. Patients with unexplained liver disease who are immunocompromised or suspected of having acute Hepatitis C infection may benefit from Nucleic Acid Test (YUSRA) for Hepatitis C Viral RNA to confirm Hepatitis C status. Blood BLOOD SPECIMEN / Unknown Lab Venipuncture / Unknown 03/04/2024 4:13 PM ABSTRACT CLERK 03/04/2024 4:23 PM ABSTRACT CLERK Cindy Garcia MD LAB - CHEMISTRY CHELI MONRE[place] [address] [address], [place] [phone] * (ABNORMAL) FERRITIN (03/04/2024 4:13 PM ABSTRACT CLERK) Ferritin 21(L) 22 - 275 ng/mL 03/04/2024 5:12 PM ABSTRACT CLERK [facility] Blood BLOOD SPECIMEN / Unknown Lab Venipuncture / Unknown 03/04/2024 4:13 PM ABSTRACT CLERK 03/04/2024 4:23 PM ABSTRACT CLERK Cindy Garcia MD LAB - CHEMISTRY CHELI MONREAL [facility] [address] [place] [address], [facility] [phone] * DERMATOPATHOLOGY (09/27/2023 12:00 AM CDT) Only the most recent of2 resultswithin the time period is included. Pathologist [facility] Case Report Dermatopathology Report ? Case: [id number] ? Authorizing Provider: ??Timothy Banks MD ? Collected: ? 09/27/2023 12:00 AM ? Ordering Location: ? [facility] - ??Received: ?09/28/2023 10:46 AM [...] specimen consists of a shave biopsy measuring 31c49f7 mm. Jar 0. Specimen B: Received is [...] characteristic determined by the Dermatopathology Laboratory at [facility], directed by Dr. Randall Pringle. These tests need not be, and therefore are not, approved by the [place] Food and Drug Administration. The tests are used for clinical purposes. Billing Codes Specimen Charges Stain Charges 12234 53084 1 1 4 12:35 PM CDT DERMATOPATHOLOGY LABORATORY Embedded Images 4 12:35 PM CDT DERMATOPATHOLOGY LABORATORY Pathology/Cytology TISSUE SPECIMEN FROM SKIN / Unknown 09/27/2023 09/28/2023 10:46 AM CDT Miscellaneous samples (specimen) TISSUE SPECIMEN FROM SKIN / Unknown 09/27/2023 09/28/2023 10:46 AM CDT Timothy Banks MD LAB - PATHOLOGY/CYTO LOGY ORDERABLES Performing Organization Address City/State/[facility] Co de Phone Number DERMATOPATHOLOGY LABORATORY [facility] - Department of Dermatology [facility] Medicine [address] [place] [address], [address] [phone] Care Teams Revenue Settlements Administrator Relationship Specialty Start Date End Date Timtohy Banks [place] [address] [place] [address] PCP - General 10/19/18 Cindy Garcia MD [address] [place] [address] [employer] T[employer] Machine Offbearer/Oncologis t Hematology and Oncology 03/24/24
--- OUTSIDE RECORDS SUMMARY | 2024-05-06 12:16 | XMS_ITS | Encounter Summary ---
Author Organization [facility] Address [address] [facility] [place] [address] Care Team Providers Care Charging Plug Placer Name Role Phone Timothy Banks MD Primary Care Provider [phone] Cindy Garcia MD Unavailable Encounter Details Date Type Department Care Team (Late st Contact Info) Description 02/12/2024 Lab Requisition [facility] - Pathology Lab [address] [place] [address] Rommel Dinh MD [address] [facility] [address] [place] [address] Decreased white blood cell count, unspecified Social History Tobacco Use Types Packs/Day Years Used Date Smoking Tobacco: Never Assessed Sex and Gender Information Value Date Recorded Sex Assigned at Male 03/05/2024 8:04 AM BIAS BINDING CUTTER Gender Identity Male 03/05/2024 8:04 AM BIAS BINDING CUTTER Sexual Orientation Straight 03/05/2024 8: 04 AM BIAS BINDING CUTTER documented as of this encounter Plan of Treatment Upcoming Encounters Date Type Department Care Team (Late st Contact Info) Description 05/15/2024 1:30 PM BIAS BINDING CUTTER Appointment [facility] [address] [place] [address] Cindy Garcia MD [address] [place] [address] 05/16/2024 9:00 AM BIAS BINDING CUTTER Appointment [facility] [address] [place] [address] 05/16/2024 9:40 AM BIAS BINDING CUTTER Office Visit [facility] - Hematology/Oncology [address] [place] [phone] Stephanie Connolly, [place] COORDINATOR-ROBOT OPERATOR [address] [place] [phone] 05/17/2024 9:00 AM BIAS BINDING CUTTER Appointment [facility] [address] [place] [address] 05/20/2024 9:30 AM BIAS BINDING CUTTER Appointment [facility] [address] [place] [address] 05/21/2024 9:00 AM BIAS BINDING CUTTER Appointment [facility] [address] [place] [address] 05/22/2024 9:30 AM BIAS BINDING CUTTER Appointment [facility] [address] [place] [address] 06/13/2024 9:00 AM BIAS BINDING CUTTER Appointment [facility] [address] [place] [address] 06/14/2024 9:00 AM BIAS BINDING CUTTER Appointment [facility] [address] [place] [address] 06/17/2024 9:20 AM CDT Appointment [facility] [address] [place] [address] 06/18/2024 9:20 AM CDT Appointment [facility] [address] [place] [address] 06/19/2024 9:00 AM CDT Appointment [facility] [address] [place] [address] documented as of this encounter Procedures Procedure Name Priority Date/Time Associated Diagnosis Comments FLOW CYTOMETRY BONE MARROW Routine 02/12/2024 9:20 AM BIAS BINDING CUTTER Decreased white blood cell count, unspecified documented in this encounter Results * FLOW CYTOMETRY BONE MARROW (02/12/2024 9:20 AM BIAS BINDING CUTTER) Case Report Flow Cytometry ?Case: [id number] ? Authorizing Provider: ??Wreford, Rommel ? Collected: ? 02/12/2024 09:20 AM ? Luke, ? Ordering Location: ? [facility] - ??Received: ?02/12/2024 12:12 PM ? Pathology Lab ? Pathologist: ? Audie, Daniela Mey, MD ? Specimen: ?Bone Marrow ? 02/12/2024 3:44 PM [facility] Final Diagnosis Bone marrow, [...] on 02/12/2024 at 1539. 02/12/2024 3:44 PM [facility] Flow Cytometry Interpretation Viability: 97% [...] flow cytometry specimen has been reviewed for supplier quality engineer purposes. Review the bone marrow aspirate smears reveals 20% blasts with only rare promyelocytes identified. Carolyn rods are not seen. 02/12/2024 3:44 PM [facility] Flow Cytometry Results Differential Result Comment Flow Cell Count /uL 20,700 Total Viability % 97.0 Lymphocytes % 12 Dim CD45 Region % 44 Monocytes % 1 Granulocytes % 42 02/12/2024 3:44 PM [facility] Reason for test Decreased white blood cell count, unspecified 02/12/2024 3:44 PM [facility] Client Specimen ID # [id number] 02/12/2024 3:44 PM [facility] Number of markers 29 were [...] CD56 A-20 Flow CD64 A-28 cyCD22 A-29 tqSS42o A-16 [facility] [place] [facility]+CD19+ A-17 Lambda+CD19+ A-24 Flow HLA-DR A-25 Flow MPO A-26 Flow TdT A-27 cyCD3 02/12/2024 3:44 PM [facility] Pathologist Location at [facility] 02/12/2024 3:44 PM [facility] Disclaimer Test performed at [facility], [address] [place] [address], [facility]. *The established laboratory minimum viability is 70%. [...] high complexity clinical testing. 02/12/2024 3:44 PM [facility] Embedded Images 3:44 PM [facility] Pathology/Cytolo gy BONE MARROW SPECIMEN / Unknown 02/12/2024 9:20 AM BIAS BINDING CUTTER 02/12/2024 12:12 PM BIAS BINDING CUTTER Rommel Dinh MD LAB - PATHO LOGY/CYTOLOGY ORDERABLES [facility] [address] [place] [address]. [place] [address], [facility] [phone] documented in this encounter Visit Diagnoses Diagnosis Decreased white blood cell count, unspecified documented in this encounter Care Teams Charging Plug Placer Relationship Specialty Start Date End Date Timothy Banks MD [address] [place] [phone] PCP - General 10/19/18 Cindy Garcia MD [address] [place] [address] Research Laboratory Specialist/Oncologis t Hematology and Oncology 03/24/24 documented as of this encounter
--- OUTSIDE RECORDS SUMMARY | 2024-05-06 12:16 | XMS_ITS | Clinical Summary ---
Author Organization [facility] Meka Hayes Address [address] [place] [address] Care Team Providers Care Bottom Worker Name Role Phone Timothy Banks MD Primary Care Provider [phone] Allergies Active Allergy Reactions Criticality Noted Date [...] Take 25 Capsules by mouth daily. Active Active Problems No known active problems Encounters Date Type Department Care Team Description 05/06/[address] 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 Oncology and Hematology - [place] [address] [place] [address] Frank Singh MD 05/02/2024 External Device Data STL ABSTRACTION Provider, Abstract 05/01/2024 External Device Data STL ABSTRACTION Provider, Abstract 04/30/2024 External Device Data STL ABSTRACTION Provider, Abstract 04/30/[address] 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 Oncology and Hematology - [place] [address] [place] [phone] Frank Singh MD 04/23/2024 External Device Data STL ABSTRACTION Provider, Abstract 04/23/[address] 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 Oncology and Hematology - [place] [address] [place] [phone] Frank Singh MD 04/16/[address] 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 Oncology and Hematology - [place] [address] [place] [address] Frank Singh MD 04/02/[address] 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 Oncology and Hematology - [place] [address] [place] [address] Frank Singh MD 03/28/[address] [facility] Oncology and Hematology - [place] [address] [place] [address] Frank Singh MD 03/26/[address] [facility] Oncology and Hematology - [place] [address] [place] [address] Frank Singh MD 03/25/[address] [facility] Oncology and Hematology - [place] [address] [place] [address] Frank Singh MD Lab Results 03/25/[address] 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 Oncology and Hematology - [place] [address] [place] [address] Frank Singh MD Chemotherapy 03/22/[address] [facility] Oncology and Hematology - [place] [address] Frank Singh MD error 02/26/2024 4:30 PM MICROFILM DUPLICATING UNIT SUPERVISOR Telephone Check Up [facility] Oncology and Hematology - [place] [address] Frank Singh MD Chronic anemia (Primary Dx) 02/22/[address] [facility] Oncology and Hematology - [place] [address] [place] [phone] Frank Singh MD Referral 02/21/[address] [facility] Oncology and Hematology - [place] [address] Frank Singh MD 02/16/[address] [facility] Oncology and Hematology - [place] [address] [place] [phone] Scanning, Provider 02/06/2024 External Device Data STL ABSTRACTION Provider, Abstract from Last 3 Months Family History Medical [...] Sex Assigned at Male 04/05/2024 3:07 PM [employer]OF[employer] DUPLICATING UNIT SUPERVISOR Legal Sex Male 10:53 AM CDT Gender Identity Male 04/05/2024 3:07 PM [employer] DUPLICATING UNIT SUPERVISOR Sexual Orientation Not on file Last Filed [...] 2023-2 5 season) 2023 04/14/2021 [place] Preventative Visit/Annual Wellness Visit 04/10/2024 DTAP/TDAP/TD VACCINES (2 - T d or Tdap) 09/17/2028 09/17/2018 PNEUMOCOCCAL VACCINE 65+ YEARS Completed 09/17/2018 , 08/27/2015 Procedures Procedure Name Priority Date/Time Associated Diagnosis Comments BASIC METABOLIC PANEL Routine 04/29/2024 4:14 PM [employer] UNIT SUPERVISOR BASIC METABOLIC PANEL Routine 04/25/2024 4:21 PM [employer]CROF[employer]M DUPLICATING UNIT SUPERVISOR BASIC METABOLIC PANEL Routine 04/08/2024 1:56 PM MICROFILM DUPLICATING UNIT SUPERVISOR BASIC METABOLIC PANEL Routine 04/04/2024 3:39 PM MICROFILM DUPLICATING UNIT SUPERVISOR CBC WITH DIFFERENTIAL Routine 04/04/2024 1:55 PM [employer]CROF[employer]M DUPLICATING UNIT SUPERVISOR BASIC METABOLIC PANEL Routine 04/01/2024 10:11 AM MICROFILM DUPLICATING UNIT SUPERVISOR CBC MIXED CELL DIFFERENTIAL Routine 04/01/2024 9:00 AM MICROFILM DUPLICATING UNIT SUPERVISOR BASIC METABOLIC PANEL Routine 03/28/2024 1:31 PM MICROFILM DUPLICATING UNIT SUPERVISOR CBC WITH DIFFERENTIAL Routine 03/28/2024 1:23 PM MICROFILM DUPLICATING UNIT SUPERVISOR BASIC METABOLIC PANEL Routine 03/25/2024 1:24 PM MICROFILM DUPLICATING UNIT SUPERVISOR CBC WITH DIFFERENTIAL Routine 03/25/2024 1:23 PM MICROFILM DUPLICATING UNIT SUPERVISOR CBC WITH DIFFERENTIAL Routine 03/25/2024 10:28 AM MICROFILM DUPLICATING UNIT SUPERVISOR CHROMOSOME ANALYSIS, AMNIOTIC FLUID Routine 02/21/2024 1:39 PM MICROFILM DUPLICATING UNIT SUPERVISOR FLOW CYTOMETRY PANEL Routine 02/12/2024 2:53 PM [employer]CROFILM DUPLICATING UNIT SUPERVISOR BONE MARROW ASPIRATION & BIOPSY Routine 02/12/2024 7:45 AM MICROFILM DUPLICATING UNIT SUPERVISOR from Last 3 Months Results * BASIC METABOLIC PANEL (04/29/2024 4:14 PM MICROFILM DUPLICATING UNIT SUPERVISOR) Only the most recent of7 resultswithin the time period is included. Blood us Frank Singh MD CHEMISTRY ORDERABLES Final Resu lt * CBC WITH DIFFERENTIAL (04/04/2024 1:55 PM MICROFILM DUPLICATING UNIT SUPERVISOR) Only the most recent of4 resultswithin the time period is included. Blood Frank Singh MD HEMATOLOGY ORDERABLES Final Res ult * CBC MIXED CELL DIFFERENTIAL (04/01/2024 9:00 AM MICROFILM DUPLICATING UNIT SUPERVISOR) Blood Result [facility] us Frank Singh MD HEMATOLOGY ORDERABLES Final Res ult * CHROMOSOME ANALYSIS, AMNIOTIC FLUID (02/21/2024 1:39 PM MICROFILM DUPLICATING UNIT SUPERVISOR) Amniotic fluid AMNIOTIC FLUID / Unknown us Frank Singh MD BODY FLUIDS AND STOOLS Final Re sult * FLOW CYTOMETRY PANEL (02/12/2024 2:53 PM MICROFILM DUPLICATING UNIT SUPERVISOR) Provider Scanning PATHOLOGY/CYTOLOGY ORDERABLES Final Result * BONE MARROW ASPIRATION AND BIOPSY (02/12/2024 7:45 AM MICROFILM DUPLICATING UNIT SUPERVISOR) Bone marrow Frank Singh MD PATH/CYTO ORDERABLES COM Final Result from Last 3 Months [id number] MCR Care Teams Bottom Worker Relationship Specialty Start Date End Date Timothy Banks MD [address] [place] [phone] PCP - General Family Practice 02/01/24
--- OUTSIDE RECORDS SUMMARY | 2024-05-06 12:16 | XMS_ITS | Clinical Summary ---
Author Organization [facility] Address [address] [place] [address] Phone Care Team Providers Care Education Reporter Name Role Phone Timothy Banks MD Primary Care Provider Allergies No known active allergies Medications Medication [...] Highest Risk Completed 09/17/2018, 08/27/2015 Care Teams Education Reporter Relationship Specialty Start Date End Date Timothy Banks MD [address] [place] [phone] PCP - General Family Medicine 11/14/18
--- OUTSIDE RECORDS SUMMARY | 2024-05-06 12:16 | XMS_ITS | Encounter Summary ---
Author Organization [facility] [employer] [facility] Address [address] [place] [address] Care Team Providers Care Milieu Manager Name Role Phone Timothy Banks MD Primary Care Provider [phone] Encounter Details Date Type Department Care Team (Late st Contact Info) Description 05/06/2024 Orders Only 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) Social History Tobacco Use Types Packs/Day Years Used Date Smoking Tobacco: Never Smokeless Tobacco: Never Alcohol Use Standard Drinks/Week Comments Yes 0 (1 standard drink = 0.6 oz pur e alcohol) Very Ocasionally Sex and Gender Information Value Date Recorded Sex Assigned at Male 04/05/2024 3:07 PM DESKTOP ADMINISTRATOR Legal Sex Male 10:53 AM CDT Gender Identity Male 04/05/2024 3:07 PM DESKTOP ADMINISTRATOR Sexual Orientation Not on file documented as of this encounter Plan of Treatment Not on file documented as of this encounter Visit Diagnoses Diagnosis 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 [address] PCP - General Family Practice 02/01/24 documented as of this encounter
--- OUTSIDE RECORDS SUMMARY | 2024-05-06 12:16 | XMS_ITS | Encounter Summary ---
Author Organization [facility] Address [address] [place] [address] Care Team Providers Care Decker Operator Name Role Phone Timothy Banks MD Primary Care Provider Cindy Garcia MD Unavailable Encounter Details Date Type Department Care Team (Late st Contact Info) Description 09/28/2023 Lab Requisition [facility] - DermPath Lab [address] [place] [phone] Timothy Banks MD [address] [place] [phone] Social History Tobacco Use Types Packs/Day Years Used Date Smoking Tobacco: Never Assessed Sex and Gender Information Value Date Recorded Sex Assigned at Male 03/05/2024 8:04 AM UNLOADER Gender Identity Male 03/05/2024 8:04 AM UNLOADER Sexual Orientation Straight 03/05/2024 8: 04 AM UNLOADER documented as of this encounter Plan of Treatment Upcoming Encounters Date Type Department Care Team (Late st Contact Info) Description 05/15/2024 1:30 PM UNLOADER Appointment [facility] [address] [place] [address] Cindy Garcia MD [address] [place], [place] [phone] 05/16/2024 9:00 AM UNLOADER Appointment [facility] INF[facility]ION [facility] [address] [place] [address] 05/16/2024 9:40 AM UNLOADER Office Visit [facility] - Hematology/Oncology [address] [place] [phone] Stephanie Connolly APRN-[facility] [employer] [address] [place] [phone] 05/17/2024 9:00 AM UNLOADER Appointment [facility] [address] [place] [address] 05/20/2024 9:30 AM UNLOADER Appointment [facility] [address] [place] [address] 05/21/2024 9:00 AM UNLOADER Appointment [facility] [address] [place] [address] 05/22/2024 9:30 AM UNLOADER Appointment [facility] [address] [place] [address] 06/13/2024 9:00 AM UNLOADER Appointment [facility] [address] [place] [address] 06/14/2024 9:00 AM UNLOADER Appointment [facility] [address] [place] [address] 06/17/2024 9:20 AM CDT Appointment [facility] [address] [place] [address] 06/18/2024 9:20 AM CDT Appointment [facility] [address] [place] [address] 06/19/2024 9:00 AM CDT Appointment [facility] [address] [place] [address] documented as of this encounter Procedures Procedure Name Priority Date/Time Associated Diagnosis Comments DERMATOPATHOLOGY Routine 09/27/2023 12:0 0 AM CDT documented in this encounter Results * DERMATOPATHOLOGY (09/27/2023 12:00 AM CDT) Case Report Dermatopathology Report ? Case: [id number] ? Authorizing Provider: ??Timothy Banks MD ? [...] PIGMENTED SEBORRHEIC KERATOSIS (L82.1) PRESENT AT MARGIN 12:35 PM [facility] DERMATOPATHOLOGY [facility]OR[facility] Clinical History A-B: Changing lesion 12:35 PM [facility] DERMATOPATHOLOGY [facility] Gross Description Specimen A: Received is one formalin filled container labeled with the patient's name and designated left neck. The specimen consists of a shave biopsy measuring 59m08w1 mm. Jar 0. Specimen B: Received is [...] and submitted in cassette 2. Jar 0. 12:35 PM [facility] DERMATOPATHOLOGY [facility]ORAT[facility] Microscopic Description Specimen A. SKIN, [...] present at the margin of the specimen. 12:35 PM [facility] DERMATOPATHOLOGY [facility]ORAT[facility] Disclaimer An external and internal positive and negative controls are appropriate for the histochemical, immunohistochemical and immunofluorescence stain(s) in this case (if any), except where stated explicitly. The performance characteristics of the stain(s) cited in this report were developed and its performance characteristic determined by the Dermatopathology Laboratory at [facility], directed by Dr. Randall Pringle. These tests need not be, and therefore are not, approved by the [place] Food and Drug Administration. The tests are used for clinical purposes. Billing Codes Specimen Charges Stain Charges 41466 58651 1 1 06/21/202 4 12:35 PM CDT DERMATOPATHOLOGY LABORATORY Embedded Images 4 12:35 PM CDT DERMATOPATHOLOGY LABORATORY Pathology/Cytology TISSUE SPECIMEN FROM SKIN / Unknown 09/27/2023 09/28/2023 10:46 AM CDT Miscellaneous samples (specimen) TISSUE SPECIMEN FROM SKIN / Unknown 09/27/2023 09/28/2023 10:46 AM CDT Timothy Banks MD LAB - PATHOLOGY/CYTO LOGY ORDERABLES DERMATOPATHOLOGY LABORATORY [facility] - Department of Dermatology [address], [address] [phone] documented in this encounter Visit Diagnoses Not on filedocumented in this encounter Care Teams Decker Operator Relationship Specialty Start Date End Date Timothy Banks MD [address] [place] [phone] PCP - General 10/19/18 Cindy Garcia MD [address] [place] [address] Photographer/Oncologis t Hematology and Oncology 03/24/24 documented as of this encounter
--- OUTSIDE RECORDS SUMMARY | 2024-05-06 12:16 | XMS_ITS | Clinical Summary ---
Author Organization [facility] [address] Address [address] [place] [address] Care Team Providers Care Medical Customer Service Representative Name Role Phone Timothy Banks MD Primary Care Provider [phone] Allergies Active Allergy Reactions Criticality Noted Date [...] Department Care Team Description 04/25/2024 3:00 PM CRIB ATTENDANT Ancillary Procedure [facility] Cardiology [facility] 8th [place] [address] [place] [address] SVT (supraventricular tachycardia) ([facility]) 04/25/2024 11:45 AM CRIB ATTENDANT Office Visit [facility] Cardiology [address] [place] [address] 8th [place] [address] [place] [address] Alberto Gallegos MD SVT (supraventricular tachycardia) ([facility]) 03/27/2024 3:15 PM CRIB ATTENDANT Office Visit [facility] Cardiology [address] [facility] [address] [place] [phone] Jayro Kaminski MD SVT (supraventricular tachycardia) ([facility]) (Primary Dx); QAMAR (obstructive sleep apnea); ferry terminal agent current use of anticoagulant therapy; RBBB; Hypertensive left ventricular hypertrophy, without heart failure; LVH (left ventricular hypertrophy); Bilateral lower extremity edema 03/22/2024 Telephone [facility] Hematology [address] [facility] Floor [address] [place] [address] Adilene Gonsalves RN from Last 3 Months Immunizations Name [...] 04/09/2018 CHOLECYSTECTOMY 04/10/1995 - 04/09/1996 HERNIA REPAIR 194/1946 PORT PLACEMENT CHEST >5 YEARS 04/11/2024 N/A Medical History Medical History Date Comments Hx Other Medical recurrent DVT, gerd, s/p hiatal hernia surfery, ch; Comments: [facility] [place] [facility] 03/31/2016 - Hx Other Medical CKD; Comments: [facility] [place] [facility] 03/31/2016 - GERD (gastroesophageal reflux disease) [...] on file Legal Sex Male 4:19 AM CRIB ATTENDANT Gender Identity Male 01/12/2020 7:43 PM CDT Sexual Orientation Straight 01/12/2020 7: 43 PM CDT Obstetrics History Last Filed Vital Signs Vital Sign Reading Time Taken Comments Blood Pressure 142/82 04/25/2024 11:22 AM CRIB ATTENDANT Pulse 77 04/25/2024 11:22 AM CRIB ATTENDANT Temperature 36.3 ??C (97.4 ??F) 08/24/2023 9:29 AM CD T Respiratory Rate 18 08/24/2023 9:29 AM CDT Oxygen Saturation 97% 04/25/2024 11:22 AM CRIB ATTENDANT Inhaled Oxygen Concentration - - Weight 97.8 kg (215 lb 9.6 oz) 04/25/2024 11:22 AM CRIB ATTENDANT Height 185.4 cm (6' 1 ) 04/25/2024 11:22 AM CRIB ATTENDANT Body Mass Index 28.44 04/25/2024 11:22 AM CRIB ATTENDANT Plan of Treatment Health Maintenance Due Date [...] Comments ECG 12-LEAD Routine 04/25/2024 11:28 AM CRIB ATTENDANT SVT (supraventricular tachycardia) (HCC) from Last 3 Months Results * ECG 12 lead (04/25/2024 11:28 AM CRIB ATTENDANT) us Alberto Gallegos MD ECG ORDERABLES Final R esult from Last 3 Months Insurance [address] [id number] T MEDICARE [address] [place] [id number] [facility] MEDICARE [address] [place] [id number] [facility] MEDICARE Care Teams Medical Customer Service Representative Relationship Specialty Start Date End Date Timothy Banks MD PCP - General 07/08/16
--- OUTSIDE RECORDS SUMMARY | 2024-05-06 12:16 | XMS_ITS | Referral Summary ---
Author Organization [facility] [address] [place] [address] [address] [place] [address] Care Team Providers Care Hair Spring Winder Name Role Phone Timothy Banks MD Primary Care Provider Encounters Date Type Department Care Team Description 04/25/2024 3:00 PM SUPERINTENDENT PIER Ancillary Procedure [facility] Cardiology [facility] 8th [place] [address] [place] [phone] SVT (supraventricular tachycardia) ([facility]) 04/25/2024 11:45 AM SUPERINTENDENT PIER Office Visit [facility] Cardiology [facility] 8th [place] [address] [place] [address] Alberto Gallegos MD SVT (supraventricular tachycardia) ([facility]) 03/27/2024 3:15 PM SUPERINTENDENT PIER Office Visit [facility] Cardiology [address] [facility] [address] [place] [address] Jayro Kaminski MD SVT (supraventricular tachycardia) ([facility]) (Primary Dx); QAMAR (obstructive sleep apnea); [facility] current use of anticoagulant therapy; RBBB; Hypertensive left ventricular hypertrophy, without heart failure; LVH (left ventricular hypertrophy); Bilateral lower extremity edema 03/22/2024 Telephone [facility] Hematology 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 Take [...] beats 03/31/2016 Overview (07/21/2016): Premature ventricular contraction [facility] current use of anticoagulant therapy 1 06/01/2015 [...] on file Legal Sex Male 4:19 AM SUPERINTENDENT PIER Gender Identity Male 01/12/2020 7:43 PM CDT Sexual Orientation Straight 01/12/2020 7: 43 PM CDT Last Filed Vital Signs Vital Sign Reading Time Taken Comments Blood Pressure 142/82 04/25/2024 11:22 AM SUPERINTENDENT PIER Pulse 77 04/25/2024 11:22 AM SUPERINTENDENT PIER Temperature 36.3 ??C (97.4 ??F) 08/24/2023 9:29 AM CD T Respiratory Rate 18 08/24/2023 9:29 AM CDT Oxygen Saturation 97% 04/25/2024 11:22 AM SUPERINTENDENT PIER Inhaled Oxygen Concentration - - Weight 97.8 kg (215 lb 9.6 oz) 04/25/2024 11:22 AM SUPERINTENDENT PIER Height 185.4 cm (6' 1 ) 04/25/2024 11:22 AM SUPERINTENDENT PIER Body Mass Index 28.44 04/25/2024 11:22 AM SUPERINTENDENT PIER Plan of Treatment Not on file Procedures Procedure Name Priority Date/Time Associated Diagnosis Comments ECG 12-LEAD Routine 04/25/2024 11:28 AM SUPERINTENDENT PIER SVT (supraventricular tachycardia) (HCC) from Last 3 Months Results * ECG 12 lead (04/25/2024 11:28 AM SUPERINTENDENT PIER) us Alberto Gallegos MD ECG ORDERABLES Final R esult from Last 3 Months Insurance [employer] MEDICARE [facility] MEDICARE [facility] MEDICARE Care Teams Hair Spring Winder Relationship Specialty Start Date End Date Timothy Banks MD PCP - General 07/08/16
--- OUTSIDE RECORDS SUMMARY | 2024-05-06 12:16 | XMS_ITS | Encounter Summary ---
Author Organization [facility] Address [address] [place] [address] Phone Care Team Providers Care Menagerie Superintendent Name Role Phone Timothy Banks MD Primary Care Provider Encounter Details Date Type Department Care Team (Late st Contact Info) Description 01/25/2024 Telephone [facility] Cardiology [address] [facility] 8th [place] [address] [place] [address] Alberto Gallegos MD [address] [facility] [address] [place] [address] Social History Tobacco Use Types Packs/Day Years Used Date Smoking Tobacco: Never Smokeless Tobacco: Never Alcohol Use Standard Drinks/Week Comments Yes 0 (1 standard drink = 0.6 oz pur e alcohol) Sex and Gender Information Value Date Recorded Sex Assigned at Not on file Legal Sex Male 4:19 AM SEWER TAPPER Gender Identity Male 01/12/2020 7:43 PM CDT Sexual Orientation Straight 01/12/2020 7: 43 PM CDT documented as of this encounter Plan of Treatment Not on file documented as of this encounter Visit Diagnoses Not on filedocumented in this encounter Care Teams Menagerie Superintendent Relationship Specialty Start Date End Date Timothy Banks MD PCP - General 07/08/16 documented as of this encounter
--- OUTSIDE RECORDS SUMMARY | 2024-05-06 12:16 | XMS_ITS | Clinical Summary ---
Author Organization Address [address] [place] [address] Care Team Providers Care Ux Developer Designer Name Role Phone Unavailable Primary Care Provider Unavailabl e Immunizations Immunization Administration Dates Next Due Covid-19, Mrna, Lnp-s, Pf, 30 Mcg/0.3 Ml Dose (P fizer) 04/14/2021 Social History Tobacco Use Types Packs/Day Years Used Date Smoking Tobacco: Never Assessed Sex and Gender Information Value Date Recorded Sex Assigned at Not on file Legal Sex Male 3:46 PM PHARMACY INFORMATICS SPECIALIST Gender Identity Not on file Sexual Orientation [...]
[2024-05-06 12:48] LABS: Anion Gap 8 mmol/L (4-12); Blood Urea Nitrogen 14 mg/dL (9-20); Calcium 9.5 mg/dL (8.4-10.2); Carbon Dioxide 29 mmol/L (22-30); Chloride 104 mmol/L (98-107); Estimated Glomerular Filt Rate 56; Glucose 69 mg/dL (65-110); Potassium 3.6 mmol/L (3.4-5.0); Sodium 141 mmol/L (137-145)
== END 2024-05-06 11:11 | disposition home or self-care (01) ==
PROVIDERS: PCP Family Medicine; Visit Provider Internal Medicine Hematology & Oncology
DX: C92.00 Acute myeloblastic leukemia, not having achieved remission (principal)
CPT/HCPCS: 36415; 80048; 85025

== ENCOUNTER 2024-05-27 08:55 | Outpatient (CLI) | payer MEDICARE, SELFPAY ==
[2024-05-27 09:19] LABS: Hematocrit 37.2 % (42.0-52.0); Hemoglobin 12.1 g/dL (14.0-18.0); Immature Granulocyte Absolute 0.04 K/mm3 (0.00-0.031); Lymphocytes Absolute Auto 0.54 K/mm3 (0.9-3.2); Mean Corpuscular HGB Conc 32.5 g/dl (32-36); Mean Corpuscular Hemoglobin 29.4 pg (26-34); Mean Corpuscular Volume 90.5 fl (80-100); Mean Platelet Volume 11.3 fl (7.4-10.4); Monocytes Absolute Auto 0.5 K/mm3 (0.1-0.6); Neutrophils Absolute Auto 0.9 K/mm3 (1.3-6.7); Platelet Count Result 212 k/mm3 (150-375); Red Blood Count 4.11 M/mm3 (4.6-6.20); Red Cell Distribution Width 19.2 % (11.5-14.5)
[2024-05-27 09:37] LABS: Blood Urea Nitrogen 14 mg/dL (8-26); Carbon Dioxide 28 mmol/L (22-30); Chloride 104 mmol/L (98-109); Estimated Glomerular Filt Rate 58; Glucose 112 mg/dL (70-105); Ionized Calcium (POC) 1.27 mmol/L (1.11-1.31); Sodium 143 mmol/L (138-146)
--- OUTSIDE RECORDS SUMMARY | 2024-05-27 11:39 | XMS_ITS ---
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 Treatments may have been administered in another system.
--- OUTSIDE RECORDS SUMMARY | 2024-05-27 11:39 | XMS_ITS | Patient Health Summary ---
Author Organization [facility] Address [address] [address] Care Team Providers Care Nurse Transition Name Role Phone Timothy Banks MD Primary Care Provider [phone] Cindy Garcia MD Unavailable Note from [facility],non-owned Affiliates and Associated Physician Practices is amultiple site organization consisting of ambulatory clinics and hospital sitesin [place], [place], [place] and [place]. This disclosure is being madepursuant to the Care Everywhere program and may not contain all information available regarding this patient. Last updated 17.[facility] Allergies * Contrast-Gadolinium Agents For [...] tablet to dissolve on the tongue * levoFLOXacin (Levaquin) 500 MG tablet(Started 04/18/2024) [...] 90 days 2 refills by 04/18/2025 * allopurinol (Zyloprim) 300 MG tablet(Started 04/22/2024) Take 1 (one) tablet by mouth once daily after breakfast * venetoclax (Venclexta) 100 MG tablet(Started 05/13/2024) Take 1 (one) tablet by mouth daily with food Reasons: Acute Myelocytic Leukemia 11 refills by 05/13/2025 * ferrous sulfate 325 (65 FE) MG tablet(Started 05/16/2024) Take 1 (one) tablet by mouth every 2 days * valACYclovir (Valtrex) 500 MG tablet(Started 05/16/2024) Take 1 (one) tablet by mouth 2 times daily 5 refills by 05/16/2025 Ended Medications* ferrous sulfate 325 (65 FE) MG tablet(Started 03/23/2024) (Discontinued) Take 1 (one) tablet by mouth every 2 days * venetoclax (Venclexta) 100 MG tablet(Started 04/18/2024)(Discontinued) Take 1 (one) tablet by mouth daily with food Reasons: Acute Myelocytic Leukemia 11 refills by 04/18/2025 * valACYclovir (Valtrex) 500 MG tablet(Started 04/22/2024)(Discontinued) Take 1 (one) tablet by mouth 2 times daily 3 refills by 04/22/2025 Active Problems Problem Noted Date Diagnosed Date [...] and heating? Not hard at all 03/13/2024 [facility] [place] [facility] - Occupational [...] Sex Assigned at Male 03/05/2024 8:04 AM ICE SKATING COACH Gender Identity Male 03/05/2024 8:04 AM ICE SKATING COACH Sexual Orientation Straight 03/05/2024 8: 04 AM ICE SKATING COACH Last Filed Vital Signs Vital Sign Reading Time Taken Comments Blood Pressure 145/94 05/22/2024 8:44 AM ICE SKATING COACH Pulse 70 05/22/2024 8:44 AM ICE SKATING COACH Temperature 36.5 C (97.7 F) 05/22/2024 8:44 AM ICE SKATING COACH Respiratory Rate 18 05/22/2024 8:44 AM ICE SKATING COACH Oxygen Saturation 100% 05/22/2024 8:44 AM ICE SKATING COACH Inhaled Oxygen Concentration - - Weight 96.2 kg (212 lb) 05/21/2024 9:20 AM ICE SKATING COACH Height 182.9 cm (6') 05/15/2024 12:50 PM ICE SKATING COACH Body Mass Index 28.75 05/15/2024 12:50 PM ICE SKATING COACH Medical Devices Implanted Type Area Senior Technical Analyst Device Identifier Shelf Expiration Date Model / Serial / Lot Port Implinfn Powerport Clrvu Argd Kandy Implanted:Qty : 1 on 04/11/2024 by Davian Marshall MD at [facility] Catheters Right: Chest Wall [employer] [facility] [id number] 02/07/2025 [id number] / / [id number] Procedures * DIFFERENTIAL MANUAL(Performed 05/20/2024) 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, 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) * COMPREHENSIVE METABOLIC PANEL(Performed 05/20/2024) 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, 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) * CBC W AUTO DIFFERENTIAL(Performed 05/20/2024) 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, 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) * DIFFERENTIAL MANUAL(Performed 05/16/2024) 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, 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) * COMPREHENSIVE METABOLIC PANEL(Performed 05/16/2024) 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, 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) * CBC W AUTO DIFFERENTIAL(Performed 05/16/2024) 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, 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) * CHROMOSOME ANALYSIS BONE MARROW PANEL(Performed 05/15/2024) 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, 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), MDS (myelodysplastic syndrome) (HCC) * FLOW CYTOMETRY BONE MARROW(Performed 05/15/2024) 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, 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), MDS (myelodysplastic syndrome) (HCC) * BONE MARROW BIOPSY (STL)(Performed 05/15/2024) 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, 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), MDS (myelodysplastic syndrome) (HCC) * LAB MISC TEST (NOT BLOOD)(Performed 05/15/2024) 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, 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), MDS (myelodysplastic syndrome) (HCC) * LAB MISC TEST (NOT BLOOD)(Performed 05/15/2024) 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, 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), MDS (myelodysplastic syndrome) (HCC) * DIFFERENTIAL MANUAL(Performed 05/15/2024) 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, 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), MDS (myelodysplastic syndrome) (HCC) * CBC W AUTO DIFFERENTIAL(Performed 05/15/2024) 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, 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), MDS (myelodysplastic syndrome) (HCC) * EKG 12-LEAD(Performed 04/22/2024) Performed for Acute [...] CONTRAST(Performed 03/15/2024) Performed for MDS (myelodysplastic syndrome) ([facility]) * MYELOID MALIGNANCIES MUTATION PNL(Performed 03/15/2024) Performed for MDS (myelodysplastic syndrome) ([facility]) * FISH MDS PANEL BLOOD OR BONE MARROW(Performed 03/15/2024) Performed for MDS (myelodysplastic syndrome) ([facility]) * FISH AML PANEL BLOOD OR BM RFLX PML/DANTE(Performed 03/15/2024) Performed for MDS (myelodysplastic syndrome) ([facility]) * FLOW CYTOMETRY BONE MARROW(Performed 03/15/2024) Performed for MDS (myelodysplastic syndrome) ([facility]) * BONE MARROW BIOPSY (STL)(Performed 03/15/2024) Performed for MDS (myelodysplastic syndrome) ([facility]) * FISH PML/DANTE PANEL(Performed 03/15/2024) Performed for MDS (myelodysplastic syndrome) ([facility]) * CHROMOSOME ANALYSIS BONE MARROW PANEL(Performed 03/15/2024) Performed for MDS (myelodysplastic syndrome) ([facility]) * LAB MISC TEST (NOT BLOOD)(Performed 03/15/2024) [...] 12-LEAD(Performed 03/14/2024) Performed for MDS (myelodysplastic syndrome) ([facility]) * FLOW CYTOMETRY BLOOD PROFILE(Performed 03/14/2024) Performed for MDS (myelodysplastic syndrome) ([facility]) * DIFFERENTIAL MANUAL(Performed 03/13/2024) * LDH BLOOD(Performed [...] BLD(Performed 03/04/2024) Performed for MDS (myelodysplastic syndrome) ([facility]) * FISH PML/DATNE PANEL(Performed 03/04/2024) Performed for MDS (myelodysplastic syndrome) ([facility]) * FISH AML PANEL BLOOD OR BM RFLX PML/DANTE(Performed 03/04/2024) Performed for MDS (myelodysplastic syndrome) ([facility]) * FISH AML+MDS PANEL BLOOD OR BONE MARROW(Performed 03/04/2024) Performed for MDS (myelodysplastic syndrome) ([facility]) * MYELOID MALIGNANCIES MUTATION PNL(Performed 03/04/2024) Performed for MDS (myelodysplastic syndrome) ([facility]) * HLA TYPING LOW/HIGH RESOLUTION DPB1(Performed 03/04/2024) Performed for MDS (myelodysplastic syndrome) ([facility]) * HLA TYPING DNA HIGH RESOLUTION DR(Performed 03/04/2024) Performed for MDS (myelodysplastic syndrome) ([facility]) * HLA TYPING DNA HIGH RESOLUTION B(Performed 03/04/2024) Performed for MDS (myelodysplastic syndrome) ([facility]) * HLA TYPING DNA HIGH RESOLUTION C(Performed 03/04/2024) Performed for MDS (myelodysplastic syndrome) ([facility]) * HLA TYPING DNA HIGH RESOLUTION DQ(Performed 03/04/2024) Performed for MDS (myelodysplastic syndrome) ([facility]) * HLA TYPING DNA HIGH RESOLUTION A(Performed [...] 09/27/2023) * DERMATOPATHOLOGY(Performed 09/24/2013) Results * (ABNORMAL) DIFFERENTIAL MANUAL (05/20/2024 9:42 AM ICE SKATING COACH) Only the most recent of15 resultswithin the time period is included. Neutrophil % 8(L) 41 - 74 % 05/20/2024 12:18 PM [facility] Lymphocyte % 39 17 - 47 % 05/20/2024 12:18 PM [facility] Monocyte % 51(H) 3 - 11 % 05/20/2024 12:18 PM [facility] Eosinophil % 2 0 - 7 % 05/20/2024 12:18 PM [facility] Neutrophil Absolute 0.07(L) 1.60 - 7.50 x10E9/L 05/20/2024 12:18 PM [facility] Lymphocyte Absolute 0.35(L) 1.00 - 4.40 x10E9/L 05/20/2024 12:18 PM [facility] Monocyte Absolute 0.46 0.15 - 1.00 x10E9/L 05/20/2024 12:18 PM [facility] Eosinophil Absolute 0.02 0.00 - 0.60 x10E9/L 05/20/2024 12:18 PM [facility] RBC Morphology REVIEWED 05/20/2024 12:18 PM [facility] Microcytosis MODERATE(A) (none) 05/20/2024 12:18 PM [facility] Schistocytes MODERATE(A) (none) 05/20/2024 12:18 PM [facility] Large Platelets PRESENT(A) (none) 12:18 PM [facility] Blood BLOOD SPECIMEN / Unknown Venipuncture / Unknown 05/20/2024 9:42 AM ICE SKATING COACH 05/20/2024 10:14 AM ICE SKATING COACH Cidny Garcia MD LAB - HEMATOLOGY ORD ERABLES [facility] [address] [place] [id number], [facility] [phone] * (ABNORMAL) CBC WITH DIFFERENTIAL (05/20/2024 9:42 AM ICE SKATING COACH) Only the most recent of19 resultswithin the time period is included. WBC 0.9(LL) 4.0 - 10.7 x10E9/L 05/20/2024 12:19 PM [facility] RBC Count 4.02(L) 4.30 - 5.80 x10E12/L 05/20/2024 12:19 PM [facility] Hemoglobin 11.8(L) 13.3 - 17.5 g/dL 05/20/2024 12:19 PM [facility] Hematocrit 35.1(L) 38.7 - 51.1 % 05/20/2024 12:19 PM [facility] MCV 87.3 80.0 - 98.0 fL 05/20/2024 12:19 PM [facility] MCH 29.4 26.7 - 33.6 pg 05/20/2024 12:19 PM [facility] MCHC 33.6 31.7 - 36.3 g/dL 05/20/2024 12:19 PM [facility] RDW-CV 19.2(H) 11.3 - 14.8 % 05/20/2024 12:19 PM [facility] Platelet Count 294 150 - 420 x10E9/L 05/20/2024 12:19 PM [facility] MPV 12.7(H) 7.8 - 11.4 fL 05/20/2024 12:19 PM [facility] Preliminary Absolute Neutrophil 0.11(L) 1.60 - 7.50 x10E9/L 05/20/2024 12:19 PM [facility] Blood BLOOD SPECIMEN / Unknown Venipuncture / Unknown 05/20/2024 9:42 AM ICE SKATING COACH 05/20/2024 10:14 AM [facility] Cindy Garcia MD LAB - HEMATOLOGY ORD ERABLES [facility] [address] [place] [address], [facility] [phone] * (ABNORMAL) COMPREHENSIVE METABOLIC PANEL (05/20/2024 9:42 AM [facility]) Only the most recent of20 resultswithin the time period is included. BUN 13 7 - 26 mg/dL 05/20/2024 10:59 AM [facility] Creatinine 1.19(H) 0.71 - 1.16 mg/dL 05/20/2024 10:59 AM [facility] Sodium 143 136 - 145 mmol/L 05/20/2024 10:59 AM [facility] Potassium 3.6 3.5 - 4.5 mmol/L 05/20/2024 10:59 AM [facility] Chloride 108(H) 98 - 107 mmol/L 05/20/2024 10:59 AM [facility] CO2 25 22 - 29 mmol/L 05/20/2024 10:59 AM [facility] Glucose 61(L) 70 - 99 mg/dL 05/20/2024 10:59 AM [facility] Calcium 9.2 8.4 - 10.2 mg/dL 05/20/2024 10:59 AM [facility] Protein Total 6.5 6.0 - 8.3 g/dL 05/20/2024 10:59 AM [facility] Albumin 3.9 3.4 - 5.0 g/dL 05/20/2024 10:59 AM [facility] Bilirubin Total 1.0 0.2 - 1.2 mg/dL 05/20/2024 10:59 AM [facility] Alkaline Phosphatase 137 40 - 150 U/L 05/20/2024 10:59 AM [facility] ALT 15 5 - 55 U/L 05/20/2024 10:59 AM [facility] AST 16 5 - 34 U/L 05/20/2024 10:59 AM [facility] Anion Gap 10 6 - 16 05/20/2024 10:59 AM [facility] BUN/Creatinine Ratio 11 7 - 23 05/20/2024 10:59 AM [facility] Osmolality Calculated 294 275 - 295 mOsm/kg 05/20/2024 10:59 AM [facility] Albumin/Globulin Ratio 1.5 1.1 - 2.3 05/20/2024 10:59 AM [facility] eGFR by CKD-EPI 62(L) >=90 mL/min/1.7 3 m2 05/20/2024 10:59 AM [facility] Blood BLOOD SPECIMEN / Unknown Venipuncture / Unknown 05/20/2024 9:42 AM ICE SKATING COACH 05/20/2024 10:15 AM ICE SKATING COACH Cindy Garcia MD LAB - CHEMISTRY [facility] Organization Address City/State/ZIP Co de Phone Number [address] [address], [facility] [phone] * FLOW CYTOMETRY BONE MARROW (05/15/2024 1:35 PM ICE SKATING COACH) Only the most recent of3 resultswithin the time period is included. Case Report Flow Cytometry Case: [id number] Authorizing Provider: Chapis Prabhakar APRN-CNP Collected: 05/15/2024 01:35 PM Ordering Location: [facility] Received: 05/15/2024 03:04 PM Pathologist: Guillermo Brown MD Specimen: Bone Marrow 05/22/2024 8:46 AM [facility] Addendum 1 This addendum is issued to report the results of minimal residual disease (MRD) flow cytometric analysis performed by the [facility], [address] [place] [address], [place] [address]. B one marrow aspirate - No abnormal myeloid progenitor population identified COMMENT The absence of an abnormal myeloid progenitor population is consistent with an absence of residual acute myeloid leukemia. The limit of detection of this assay is conservatively estimated as 0.1%, but may be lower depending on the leukemic immunophenotype. Moderate hemodilution is noted and the findings in part represent peripheral blood. 05/22/2024 8:46 AM [facility] Addendum electronically signed by Angeles Rosado MD on 05/22/2024 at 8:46 AM Final Diagnosis Bone marrow, flow cytometry: - No significant B-cell, increased blast, or immature monocyte population detected 05/22/2024 8:46 AM [facility] Flow Cytometry Interpretation Viability: 75% B-cells: no significant population T-cells: not increased Blasts: not increased, ~1.5% represent CD34+ myeloblasts, ~23% of overall events are mature CD14+/CD64+ monocytes with no immunophenotypic aberrancies. MRD sent: Yes A bone marrow aspirate smear prepared from the flow cytometry specimen has been reviewed for senior data quality analyst purposes. 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 A-2 Flow CD10 A-3 Flow CD13 A-5 Flow CD20 A-11 Flow CD2 A-13 Flow CD14 A-16 Flow CD117 A-17 Flow CD11b A-18 Flow CD11c A-1 Flow CD5 A-4 Flow CD19 A-6 Flow CD33 A-7 Flow CD34 A-8 Flow CD45 A-12 Flow CD7 A-14 Flow CD56 A-15 Flow CD64 A-9 Osborn+CD19+ A-10 Lambda+CD19+ A-19 Flow HLA-DR 05/22/2024 8:46 AM [facility] Pathologist Location at [facility] 05/22/2024 8:46 AM [facility] Disclaimer Test performed at [facility], [address], [place], [address]. *The established laboratory minimum viability is 70%. [...] qualified to perform high complexity clinical testing. 05/22/2024 8:46 AM ICE SKATING COACH [facility] Embedded Images 8:46 AM ICE SKATING COACH [facility] Pathology/Cytolo gy BONE MARROW SPECIMEN / Unknown Collection / Unknown 05/15/2024 1:35 PM [facility] 05/15/2024 3:04 PM ICE SKATING COACH Chapis JOLLEY LAB - PATHOLOGY/CY TOLOGY ORDERABLES [facility] [address] [facility] [place] [address], [facility] [phone] * BONE MARROW BIOPSY (STL) (05/15/2024 1:35 PM ICE SKATING COACH) Only the most recent of3 resultswithin the time period is included. Case Report Bone Marrow Patholog y Report Case: [id number] Authorizing Provider: Chapis Prabhakar APRN-CNP Collected: 05/15/2024 01:35 PM Ordering Location: [facility] Received: 05/15/2024 03:04 PM Pathologist: Guillermo Brown MD Specimens: A) - Bone Marrow Clot B) - Bone Marrow Core C) - Bone Marrow Aspirate D) - Blood Peripheral 05/16/2024 3:02 PM ICE SKATING COACH [facility] Final Diagnosis Bone marrow, aspirate, clot section, and core biopsy: - Normocellular marrow with marked erythroid hyperplasia, myeloid hypoplasia and monocytic hyperplasia. - No overt acute leukemia seen. - See description. Peripheral blood smear: - Bicytopenia. - See description. 05/16/2024 3:02 PM [facility] Comment The significance of the monocytosis is unclear. By flow cytometry, these appear mature. These likely represent reactive cells. Minimal residual disease flow cytometry is pending. Immunohistochemistry is performed to assess staining cells in an architectural context: CD34 is negative for increased blasts (<2% of marrow cellularity), CD117 highlights early erythroid precursor cells. 05/16/2024 3:02 PM [facility] Peripheral Smear Description RBC: normocytic anemia. WBC: leukopenia with absolute neutropenia and lymphopenia. Platelets: normal in number. 05/16/2024 3:02 PM [facility] Bone Marrow Aspirate Differential count (200 cells): 2% blasts, 4% maturing myeloid precursors, 68% erythroid progenitors, 23% monocytes, 1% eosinophils, 2% lymphocytes, 0% plasma cells. Specimen quality: adequate. Spicules: numerous. Myeloid:Erythroid ratio: decreased. Myeloid Maturation: only sparse forms present. Erythroid Maturation: normal. Megakaryocyte morphology: small. Storage iron (by special stain): cannot be assessed due to lack of spicules. Sideroblastic iron (by special stain): no ring sideroblasts. 05/16/2024 3:02 PM [facility] Bone Marrow Core Biopsy and Clot Section Description Specimen quality: small with 0.5 cm of evaluable marrow. Cellularity: 50% Trilineage Hematopoiesis: marked erythroid hyperplasia Myeloid to Erythroid ratio: decreased. Myeloid maturation and localization: only rare cells present. Erythroid maturation and localization: normal. Megakaryocyte number: increased. Megakaryocyte distribution: small, hyperchrmatic. Lymphoid aggregates: absent. Bone trabeculae: thin. Plasma cells: normal. Clot section marrow particles: a single. Clot section morphology: similar to core biopsy. 05/16/2024 3:02 PM [facility] Flow Cytometry Summary Bone marrow, flow cytometry ([id number]): - No significant B-cell, increased blast, or immature monocyte population detected 05/16/2024 3:02 PM [facility] Clinical History AML. 05/16/2024 3:02 PM [facility] Gross Description The requisition and specimen(s) are identified with the patient's name Russ Kern . Received fresh, specimen A, bone marrow clot , consists of approximately 2 cc of red coagulated fluid. The specimen is placed in a mesh bag and submitted in toto in cassette A1. Received in formalin, specimen B, 'bone marrow core', consists of a 0.9 cm length x 0.2 cm diameter red-brown cylindrical bone biopsy. The specimen is submitted in toto following 1 hour of Rapidcal Immuno decalcification in cassette B1. /VIVIAN 05/16/2024 3:02 PM [facility] Pathologist Location at [facility] 05/16/2024 3:02 PM [facility] Disclaimer The performance characteristics of all immunohistochemical and indirect immunofluorescence stains (if any) cited in this report were determined by the Histopathology Laboratory of [facility]. Some of these tests were developed [...] and interpreted by the attending (teaching) pathologist. 05/16/2024 3:02 PM [facility] Embedded Images 05/16/2024 3:02 PM [facility] Pathology/Cytology PERIPHERAL BLOOD / Unknown Collection / Unknown 05/15/2024 1:35 PM [facility] 05/15/2024 3:04 PM [facility] SKATING COACH Miscellaneous samples (specimen) BONE MARROW SPECIMEN / Unknown 05/15/2024 1:35 PM [employer] SKATING CO[facility] 05/15/2024 3:04 PM ICE SKATING COACH Miscellaneous samples (specimen) SPECIMEN FROM BONE MARROW OBTAINED BY ASPIRATION / Unknown 05/15/2024 1:35 PM [employer] SKATING CO[facility] 05/15/2024 3:04 PM ICE SKATING COACH Miscellaneous samples (specimen) PERIPHERAL BLOOD / Unknown 05/15/2024 1:35 PM [facility] 05/15/2024 3:49 PM [facility] Chapis Prabhakar SCOOP MACHINE OPERATOR-DIESEL DRAGLINE OPERATOR LAB - PATHOLOGY/CY TOLOGY ORDERABLES [facility] [address] [place], [place] [address] [phone] * LAB MISC TEST (NOT BLOOD) (05/15/2024 1:35 PM ICE SKATING COACH) Only the most recent of4 resultswithin the time period is included. Test Name Rabiapus xT + xR 05/22/2024 4:32 PM ICE SKATING COACH [facility] NON INTERF Test Result See Scanned Report 05/22/2024 4:32 PM ICE SKATING COACH [facility] NON INTERF Comment Ref Lab Tempus 05/22/2024 4:32 PM ICE SKATING COACH [facility] NON INTERF Other BONE MARROW SPECIMEN / Unknown Collection / Unknown 05/15/2024 1:35 PM [facility] SKATING COACH 05/15/2024 4:01 PM [employer] SKATING CO[facility] Chapis Babbkle SCOOP MACHINE OPERATOR-DIESEL DRAGLINE OPERATOR LAB - BODY FLUID O RDERABLES [facility] REF [facility] NON INTERF [address] [place] [address], [facility] [phone] * CHROMOSOME ANALYSIS BONE MARROW PANEL (05/15/2024 1:35 PM ICE SKATING COACH) Only the most recent of2 resultswithin the time period is included. [facility] Chromosome Analysis Bone Marrow See Note Normal 05/22/2024 1:12 PM ICE SKATING COACH [facility] ([facility]) Comment: Test Performed: Chromosome Analysis Specimen Type: Bone Marrow Indication for Testing: Acute myeloid leukemia with multilineage dysplasia, not having achieved remission; Myelodysplastic syndrome, unspecified Number of cells counted: 9 Number of cells analyzed: 9 Number of cells karyotyped: 9 ISCN band level: 400 Banding method: G-Banding RESULT Normal Karyotype (Male) 46,XY[9' *Suboptimal Mitotic Index INTERPRETATION *Only 9 metaphase cells were available for analysis. This suboptimal mitotic yield may have prohibited the detection of a clonal population. This analysis showed a normal result. There were no abnormal clones detected within the limits of the technology utilized in this study. This result has been reviewed and approved by Oliver Muhammad, PhD, [facility] This result has been reviewed and approved by Emily Street MD A portion of this analysis was performed at the following location(s): [facility]2 [employer] [facility]#1 INTERPRETIVE INFORMATION: Chromosome Analysis, Bone Marrow This test was developed and its performance characteristics determined by [facility]. It has not been cleared or approved by the US Food and Drug Administration. This test was performed in a CLIA certified laboratory and is intended for clinical purposes. [facility] Chromosome Analysis Bone Marrow See Note 05/22/2024 1:12 PM ICE SKATING COACH [facility] ([facility]) Comment: Authorized individuals can access the [employer] Enhanced Report with an [employer] Connect account using the following link. Your local lab can assist you in obtaining the patient report if you don't have a Connect account. [email or web address] Performed By: [facility] [address], [place] [address] Packager: Uche Morley MD, PhD CLIA Number: [id number] Bone marrow BONE MARROW SPECIMEN / Unknown 05/15/2024 1:35 PM ICE SKATING COACH 05/15/2024 3:04 PM ICE SKATING COACH Chapis Prabhakar APRN-DIESEL DRAGLINE OPERATOR LAB - PATHOLOGY/CY TOLOGY ORDERABLES [facility]) [address] [place] [address], [facility] * EKG 12-[place] - HOSPITAL PERFORMED (04/22/2024 1:27 PM ICE SKATING COACH) Only the most recent of3 resultswithin the time period is included. Pathologist [facility] Ventricular Rate 61 BPM [facility] MUSE Atrial Rate 61 BPM [facility] MUSE P-R Interval 112 ms [facility] MUSE QRS Duration ms 126 ms [facility] MUSE Q-T Interval ms 476 ms [facility] MUSE QTC Calculation (Bezet) 479 ms [facility] MUSE Calculated P [place] 84 degrees [facility] MUSE Calculated R [place] 36 degrees [facility] MUSE Calculated T [place] -163 degrees [facility] MUSE Interpretation EKG NORMAL SINUS RHYTHM NON-SPECIFIC INTRA-VENTRICULA R CONDUCTION BLOCK T WAVE ABNORMALITY, CONSIDER INFERIOR ISCHEMIA T WAVE ABNORMALITY, CONSIDER ANTEROLATERAL ISCHEMIA ABNORMAL ECG WHEN COMPARED WITH ECG OF 18-MAR-2024 13:48, NO SIGNIFICANT CHANGE WAS FOUND Confirmed by HANSEL VASQUES MD ([id number]) on 04/23/2024 8:31:57 AM [facility] MUSE 04/22/2024 1:27 PM ICE SKATING COACH 04/23/2024 8:31 AM RUST Cindy Garcia MD ECG ORDERABLES [facility] MUSE * QUANTIFERON-TB GOLD PLUS 4-TUBE (04/16/2024 1:43 PM ICE SKATING COACH) [facility] QuantiFERON Mitogen Minus NIL 9.09 IU/mL 04/18/2024 11:11 PM ICE SKATING COACH [facility]) QuantiFERON Nil Value 0.04 IU/mL 04/18/2024 11:11 PM ICE SKATING COACH [facility]) QuantiFERON Plus TB1 Minus NIL 0.00 <=0.34 IU/mL 04/18/2024 11:11 PM ICE SKATING COACH [facility]) QuantiFERON Plus TB2 Minus NIL 0.00 <=0.34 IU/mL 04/18/2024 11:11 PM ICE SKATING COACH [facility] ([facility]) QuantiFERON-TB Gold Plus Negative Negative 04/18/2024 11:11 PM ICE SKATING COACH [facility] ([facility]) Comment: INTERPRETIVE INFORMATION:Quantiferon TB Gold Plus [...] Mycobacterium tuberculosis Infection -- [place], 2010 (http://www.cdc.gov/mmwr/preview/mmwrhtml/qc4824e1.htm), for more information concerning test performance in low-prevalence populations and use in occupational screening. Performed By: [facility] [address] [place] [address] Packager: Uche Morley MD, PhD CLIA Number: [id number] Blood BLOOD SPECIMEN / Unknown Venipuncture / Unknown 04/16/2024 1:43 PM ICE SKATING COACH 04/16/2024 2:03 PM ICE SKATING COACH Cindy Garcia MD LAB - CHEMISTRY CHELI MONREAL Performing Organization Address City/[facility] Co de Phone Number [facility] ([facility]) [address] [place] [address], [facility] * LDH BLOOD (04/16/2024 10:26 AM ICE SKATING COACH) Only the most recent of13 resultswithin the time period is included. [facility] LDH Total 197 125 - 243 Units/L 04/16/2024 11:14 AM ICE SKATING COACH [facility] LABORATORY [facility] Blood BLOOD SPECIMEN / Unknown Venipuncture / Unknown 04/16/2024 10:26 AM ICE SKATING COACH 04/16/2024 10:48 AM ICE SKATING COACH Cindy Garcia MD LAB - CHEMISTRY CHELI MONREAL [facility] [address] [place] [address], [facility] [phone] * IR Tim Cath Insert (04/11/2024 9:45 AM ICE SKATING COACH) Anatomical Region Laterality Modality Chest X-Ray Angiograph y 04/11/2024 9:19 AM ICE SKATING COACH Impressions 04/11/2024 3:43 PM ICE SKATING COACH Impression: Successful placement of a single lumen 8 Iraqi x 23 cm chest power port via [...] evaluation, please review the evaluation forms in [facility]. For details on monitored clinical parameters during the intra-service sedation time, please review the procedure nurse documentation in [facility]. Report dictated by Eduardo Coleman MD, PhD (vice president network development). > Dictated by Eduardo Coleman MD (Pilot Can Router) 04/11/2024 9:19 AM Davian Post DO have personally reviewed and interpreted this examination/study. > Interpreting Provider: Davian Marshall DO on 04/11/2024 3:43 PM Narrative 04/11/2024 3:43 PM ICE SKATING COACH PROCEDURE: IR TIM CATH INSERT, DATE/TIME OF EXAM: 04/11/2024 5:49 AM, LOCATION [facility] INDICATION: C92.00: Acute myeloid [...] chest. 3.Fluoroscopy-guided placement of single lumen 8 Iraqi x 23 cm chest power port via [...] draped in the usual sterile manner. A refrigeration mechanic helper film of chest was obtained, which was [...] DATE/TIME OF EXAM: 04/11/2024 5:49 AM, LOCATION [facility] INDICATION: C92.00: Acute myeloid [...] chest. 3.Fluoroscopy-guided placement of single lumen 8 Iraqi x 23 cm chestpower port via the [...] and draped inthe usual sterile manner. A refrigeration mechanic helper film of chest was obtained, which was [...] the procedure well [facility]. There were no immediate complicationsassociated with the procedure. Impression: Successful placement of a single lumen 8 Iraqi x 23 cmchest power port via the [...] evaluation, please review the evaluation forms in [facility]. For details on monitored clinical parameters during the intra-service sedation time, please review the procedure nurse documentation in [facility]. Report dictated by Eduardo Coleman MD, PhD (vice president network development). > Dictated by Eduardo Coleman MD (Pilot Can Router) 04/11/2024 9:19AM Davian Post DO have personally reviewed and interpreted this examination/study. > Interpreting Provider: Davian Marshall DO on 04/11/2024 3:43 PM Cindy Garcia MD IR ORDERABLES * PT-INR [facility] (04/11/2024 7:20 AM ICE SKATING COACH) Only the most recent of11 resultswithin the time period is included. PT 14.6 12.1 - 14.8 Seconds 04/11/2024 7:56 AM ICE SKATING COACH [facility] INR 1.2 See Comment 04/11/2024 7:56 AM ICE SKATING COACH [facility] Comment:The suggested therap eutic range for standard coumadin (warfarin) therapy is an INR of 2.0-3.0. For high-risk patients (Mechanical Mitral Valve Prosthesis, etc.), the suggested prophylactic therapeutic range is an INR of 2.5-3.5. Blood BLOOD SPECIMEN / Unknown Venipuncture / Unknown 04/11/2024 7:20 AM ICE SKATING COACH 04/11/2024 7:23 AM ICE SKATING COACH Cindy Garcia MD LAB - COAGULATION OR DERABLES [address] [address], [facility] [phone] * URIC ACID BLOOD (04/01/2024 3:12 PM ICE SKATING COACH) Only the most recent of13 resultswithin the time period is included. Pathologist [facility] Uric Acid 4.0 3.5 - 7.2 mg/dL 04/01/2024 5:52 PM ICE SKATING COACH [facility] Blood BLOOD SPECIMEN / Unknown Lab Venipuncture / Unknown 04/01/2024 3:12 PM ICE SKATING COACH 04/01/2024 5:30 PM ICE SKATING COACH Cindy Garcia MD LAB - CHEMISTRY ORDE JOCELIN [address] [address], [facility] [phone] * ERYTHROPOIETIN (04/01/2024 3:12 PM ICE SKATING COACH) Erythropoietin 22 4 - 27 mU/mL 04/02/2024 11:36 AM ICE SKATING COACH [facility] ([facility]) Comment: INTERPRETIVE INFORMATION: Erythropoietin Normal serum concentrations [...] Low values may be observed in hemochromatosis. Expected Erythropoietin Concentrations in Patients with Uncomplicated Anemia Erythropoietin (mU/mL) 100,000 - + + 10,000 - +....... + ....... 1,000 - + ....... + ........ 100 - + ........ + ........ 10 - + ........ +---+---+---+---+---+---+ 10 20 30 40 50 60 70 (Hematocrit %) (Contributions To Nephrology 1988:66:54-62) Decreased erythropoietin concentrations with an elevated hematocrit are observed in patients with polycythemia rubra vera, and with a decreased hematocrit in patients with HIV infection who are receiving AZT. Patients on AZT who have anemia and erythropoietin concentrations of less than or equal to 500 mU/mL may benefit from therapy with recombinant EPO ([facility] [id number],1989). Performed By: [facility] [address] [place] [address] Packager: Uche Morley MD, PhD CLIA Number: [id number] Blood BLOOD SPECIMEN / Unknown Lab Venipuncture / Unknown 04/01/2024 3:12 PM ICE SKATING COACH 04/01/2024 3:22 PM ICE SKATING COACH Cindy Garcia MD LAB - CHEMISTRY CHELI MONREAL [facility] ([facility]) [address] [place] [address], [facility] * SOLUBLE TRANSFERRIN RECEPTOR (04/01/2024 3:12 PM ICE SKATING COACH) [facility] Soluble Transferrin Receptor 3.3 2.2 - 5.0 mg/L 04/02/2024 9:13 PM ICE SKATING COACH [facility] [employer] ([facility]) Comment: INTERPRETIVE INFORMATION: Soluble Transferrin Receptor People [...] TIBC, and serum iron. (See Table Below). Tests for Iron Anemia of Combined Iron Changes Def. Chronic Def. and anemia Analyte in: Anemia Disease of Chronic Dz ------- -------- ------ --------- Ferritin Fe Stores Low High Normal or High TIBC Fe Status High Low Normal or High Serum Fe Fe Status Low Low Low sTfR Fe Status High Normal High Performed By: [facility] [address] [place] [address] Packager: Uche Morley MD, PhD CLIA Number: [id number] Blood BLOOD SPECIMEN / Unknown Lab Venipuncture / Unknown 04/01/2024 3:12 PM ICE SKATING COACH 04/01/2024 3:22 PM ICE SKATING COACH Cindy Garcia MD LAB - CHEMISTRY CHELI MONREAL [facility] Organization Address City/State/ZIP Co de Phone Number [facility] [employer] [facility]) [address] * PHOSPHORUS BLOOD (04/01/2024 3:12 PM ICE SKATING COACH) Only the most recent of13 resultswithin the time period is included. [facility] Phosphorus 2.9 2.8 - 5.1 mg/dL 04/01/2024 5:52 PM ICE SKATING COACH [facility] LABORATORY [facility] Blood BLOOD SPECIMEN / Unknown Lab Venipuncture / Unknown 04/01/2024 3:12 PM ICE SKATING COACH 04/01/2024 5:30 PM ICE SKATING COACH Cindy Garcia MD LAB - CHEMISTRY CHELI SHARRINIC Performing Organization Address [facility]/ZIP Co de Phone Number [address] [address], [facility] [phone] * MAGNESIUM BLOOD (04/01/2024 3:12 PM ICE SKATING COACH) Only the most recent of13 resultswithin the time period is included. Magnesium 2.1 1.6 - 2.6 mg/dL 04/01/2024 4:25 PM ICE SKATING COACH [facility] Comment:Hemolysis detected i n this specimen. Hemolysis is known to cause elevations in this analyte. Caution should be exercised in the interpretation of this result. Recommend repeat testing if clinically indicated. Blood BLOOD SPECIMEN / Unknown Lab Venipuncture / Unknown 04/01/2024 3:12 PM ICE SKATING COACH 04/01/2024 3:36 PM ICE SKATING COACH Cindy Garcia MD LAB - CHEMISTRY CHELI MONREAL Performing Organization Address [facility]/ZIP Co de Phone Number [address] [address], [facility] [phone] * LAB RESULTS ORDER (03/25/2024) 03/25/2024 Narrative 03/25/2024 Ordered by an unspecified provider. Scanned Document LAB - THERAPEUTIC DR UG MONITORING ORDERABLES * PTT [facility] (03/23/2024 12:25 AM ICE SKATING COACH) Only the most recent of10 resultswithin the time period is included. APTT 35.4 23.0 - 38.4 Seconds 03/23/2024 1:31 AM ICE SKATING COACH [facility] LABORATORY [facility] Comment:Suggested therapeuti c range for full dose I.V. unfractionated heparin therapy for venous thromboembolism is 71 to 109 seconds. Blood BLOOD SPECIMEN / Unknown Venipuncture / Unknown 03/23/2024 12:25 AM ICE SKATING COACH 03/23/2024 1:05 AM ICE SKATING COACH Ghanshyam Dewey PA-C LAB - COAGULATION OR DERABLES [address] [address], [facility] [phone] * PATHOLOGY PERIPHERAL SMEAR REVIEW (03/18/2024 8:33 AM ICE SKATING COACH) Path Review Confirmed 03/18/2024 2:44 PM ICE SKATING COACH [facility] Blood BLOOD SPECIMEN / Unknown Lab Venipuncture / Unknown 03/18/2024 8:33 AM ICE SKATING COACH 03/18/2024 8:46 AM ICE SKATING COACH Narrative [facility] - 03/18/2024 2:44 PM ICE SKATING COACH A rare blast seen. Ghanshyam Dewey PA-C LAB - PATHOLOGY/CYTO LOGY ORDERABLES Performing Organization Address City/[facility]/ZIP Co de Phone Number [address] [address], [facility] [phone] * ECHO COMPLETE W CONTRAST (03/15/2024 1:47 PM ICE SKATING COACH) IVSd 2D 1.314 cm SSM CV FUJ [...] CV FUJ I PACS RA area 17.733 cm SSM CV FUJI PACS AV pk lawanda [...] PACS MV VTI 30.572 cm SSM CV [facility] I PACS PV pk lawanda 84.446 cm/s [facility] CV [facility] I PACS PV VTI 18.271 cm [facility] CV [facility] I PACS TAPSE 1.78 cm [facility] CV [facility] I PACS TR pk lawanda 276.773 cm/s SSM CV FUJ I PACS Ascending aorta 3.799 cm SSM CV FUJI PACS LA vol index 0.046 l/m SSM CV FUJI PACS Myocardial strain charge 2 unitless [facility] Sinus of Valsalva 3.4 cm [facility] junction 3.4 cm S[facility] CV F UJI PACS Anatomical Region Laterality Modality Ultrasound 03/15/2024 2:04 PM ICE SKATING COACH Narrative 03/15/2024 5:17 PM ICE SKATING COACH Summary * The left ventricle is normal [...] 2:04 PM Patient Status: I/P Study Site: [facility] Primary Location: [facility] EStudy Info Technical Quality: Adequate Exam [...] Attending Physician: Ted Soler Fellow: Josh Knight Crtt: Dhruv Sorto Left Ventricle Left ventricular systolic [...] with grade II diastolic dysfunction. Right Ventricle The right ventricle is normal in size. Right ventricular systolic function is normal. Ventricular Septum Intact interventricular septum visualized by 2D and color Doppler imaging. Left Atrium The left atrium is moderately dilated with a left atrial volume index of 46 ml/m2 by BP MOD. Right Atrium The [...] cm/m2. Measurements Left Ventricular Outflow Tract Name Value [...] Fellow Josh Knight on 03/15/2024 04:56 PM Procedure Note Gavi [...] 2:04 PM Patient Status: I/P Study Site: [facility] Primary Location: [facility] EStudy Info Technical Quality: Adequate Exam Type: [...] Attending Physician: Ted Soler Fellow: Josh Knight Crtt: Dhruv Sorto Left Ventricle Left ventricular systolic [...] BLOOD OR BONE MARROW (03/15/2024 9:05 AM ICE SKATING COACH) MDS Panel by Fish See Note Normal 024 11:26 AM ICE SKATING COACH [facility] ([facility]) Comment: Test Performed: Myelodysplastic Syndrome (MDS) Panel by FISH (FISH MDS P) Specimen Type: Bone Marrow Indication for Testing: Myelodysplastic syndrome, unspecified RESULT Normal FISH Result Deletion 5q: not detected Monosomy 7: not detected Deletion 7q: not detected Trisomy 8: not detected Deletion 20q: not detected INTERPRETATION There was no evidence of deletion 5q31, monosomy 7, deletion 7q31, trisomy 8, or deletion 09p69-o94.1. This analysis was performed with the MDS panel probes D5S23/EGR1, D7Z1/R6D082, CEP8 ([employer]), and Del(20q) ([employer]). A total of 200 cells were scored for each probe. Cytogenomic Nomenclature (ISCN): nuc nereyda(D5S23,EGR1,D7Z1,Q9W397,D8Z2,I69O608,MYBL2)x2[200' This result has been reviewed and approved by Nabila Gonzalez, PhD, [facility] A portion of this analysis was performed at the following location(s): [facility] Site CG-MD#2 INTERPRETIVE INFORMATION: MDS Panel by FISH This test was developed and its performance characteristics determined by [facility]. It has not been cleared or approved by the [place] Food and Drug Administration. This test was performed in a CLIA certified laboratory and is intended for clinical purposes. EER MDS Fish Panel See Note 2023 11:26 AM ICE SKATING COACH [facility] ([facility]) Comment: Authorized individuals can access the [employer] Enhanced Report using the following link: [email or web address] Performed By: [facility] [address] [place] [address] Packager: Uche Morley MD, PhD CLIA Number: [id number] Other BONE MARROW SPECIMEN / Unknown Collection / Unknown 03/15/2024 9:05 AM ICE SKATING COACH 03/15/2024 9:30 AM ICE SKATING COACH Rodo Perez MD LAB - PATHOLOG Y/CYTOLOGY ORDERABLES [facility]) [address] [place] [address], [facility] * FISH AML PANEL BLOOD OR BM RFLX PML/DANTE (03/15/2024 9:05 AM ICE SKATING COACH) Only the most recent of2 resultswithin the time period is included. [facility] FISH AML Panel See Note Normal 03/25/2024 10:34 AM ICE SKATING COACH [facility] ([facility]) Comment: Test Performed: Acute Myeloid Leukemia Panel by FISH (FISHAML) Specimen Type: Bone Marrow Indication for Testing: Myelodysplastic syndrome, unspecified RESULT Normal FISH Result inv(3) or t(3;3) GATA2::MECOM Fusion: not detected Deletion 5q: not detected Monosomy 7: not detected Deletion 7q: not detected t(8;21) RUNX1::UMOM5I6 Fusion: not detected 11p15 (NUP98) Rearrangement: not detected 11q23 (KMT2A) Rearrangement: not detected inv(16) or t(16;16) CBFB::MYH11 Fusion: not detected INTERPRETATION There was no evidence of GATA2::MECOM (also known as RPN1-EVI1) fusion due to 3q21/3q26.2 inversion or translocation, deletion 5q31, monosomy 7, deletion 7q31, RUNX1::JMYJ3P7 fusion due to translocation (8;21)(q21.3;q22), 11p15 (NUP98) rearrangement, 11q23 KMT2A (MLL) rearrangement, or CBFB::MYH11 fusion due to either 16p13.1/16q22 inversion or translocation. This analysis was performed with the AML panel probes RPN1/MECOM, D5S23/EGR1, D7Z1/F1E397, RUNX1/YNAW6B4 ([employer]), NUP98 and CBFB-MYH11 ([employer]), and MLL (KMT2A) ([employer]). A total of 200 cells were scored for each probe. Cytogenomic Nomenclature (ISCN): nuc nereyda(RPN1,MECOM,D5S23,EGR1,D7Z1,Q4Z863,CBHZ4Z0,NUP98,KMT2A,MYH11,CBF B,RUNX1)x2[200' This result has been reviewed and approved by Mundo Mejia, PhD, [employer] A portion of this analysis was performed at the following location(s): [facility] Site CG-CO#1 INTERPRETIVE INFORMATION: AML Panel by FISH This test was developed and its performance characteristics determined by [facility]. It has not been cleared or approved by the US Food and Drug Administration. This test was performed in a CLIA certified laboratory and is intended for clinical purposes. EER AML Panel by FISH See Note 03/25/2024 10:34 AM ICE SKATING COACH [facility] ([facility]) Comment: Authorized individuals can access the [facility] Enhanced Report using the following link: [email or web address] Performed By: [facility] [address] [place] [address] Packager: Uche Morley MD, PhD CLIA Number: [id number] Other BONE MARROW SPECIMEN / Unknown Collection / Unknown 03/15/2024 9:05 AM ICE SKATING COACH 03/15/2024 9:30 AM ICE SKATING COACH Rodo Perez MD LAB - PATHOLOG Y/CYTOLOGY ORDERABLES [facility] ([facility]) [address] [place] [id number], [facility] * MYELOID MALIGNANCIES MUTATION PNL (03/15/2024 9:05 AM ICE SKATING COACH) Only the most recent of2 resultswithin the time period is included. Interpretation Myeloid Malignancy PNL See Note 03/28/2024 2:06 PM ICE SKATING COACH [facility] ([facility]) Comment: Myeloid Malignancies Mutation Panel NGS Submitted diagnosis or diagnosis under consideration for variant interpretation: Myelodysplastic syndrome, unspecified Note: Prior NGS testing performed on this patient (most recent [facility] accession [id number]) was reviewed in conjunction with the current case to compare molecular variants reported. The previously reported molecular variants DNMT3A, IDH1, and CUX1 are again detected in the current study. In addition, new molecular variants in STAG2, BCOR, JAK2, and CEBPA are now detected. TIER 1: Variants of Known Clinical Significance in Hematologic Malignancies 1. IDH1 c.394C>A, p.Sqc290Xpv ([id number]) VAF: 38.4% IDH1 encodes an enzyme that catalyzes the conversion of isocitrate to alpha-ketoglutarate in the citric acid cycle (23). Somatic mutations of IDH1 are found in 4-12% of patients with myelodysplastic syndrome (MDS).This mutation has been reported in hematologic malignancies (4). The prognostic significance of mutated IDH1 in MDS is uncertain (20) (27) (7) (14) (19) (32). 2. DNMT3A c.2206C>T, p.Wpl176Piu ([id number]) VAF: 42.2% DNMT3A encodes a DNA [...] stem cell transplantation (2). 3. DNMT3A c.2407A>G, p.Pli650Zth ([id number]) VAF: 38.8% This mutation has also been reported in hematologic malignancies (4). 4. JAK2 c.1849G>T, p.Zrs381Zbs ([id number]) VAF: 14.4% JAK2 encodes a non-receptor protein tyrosine kinase that regulates STAT test engineering technician factors in response to cytokine receptor signaling (13). JAK2 mutations have been reported in 3-6% of patients with MDS (6) (15) (31). This JAK2 mutation (p.Tll768Rsj) has also been reported in approximately 10-25% of patients with myelodysplastic/myeloproliferative neoplasms (MDS/MPN) (31) (21). This particular JAK2 mutation occurs in the pseudokinase (JH2) domain and leads to activation of the NOLAN-STAT pathway signaling. The prognostic significance of JAK2 mutations in MDS is unclear (6). 5. STAG2 c.1840C>T, p.Vin067* ([id number]) VAF: 31.7% STAG2 encodes a subunit [...] unmutated cohesin genes (29). 6. BCOR c.3649C>T, p.Yuw8171* ([id number]) VAF: 9.6% BCOR encodes a transcriptional corepressor that interacts with BCL-6 and histone deacetylases (HDACs) (5) (12). Mutations in BCOR are seen in 4% of patients with MDS (5) (11). BCOR mutations in MDS are often frameshift and nonsense mutations that result in inwa-kv-uhgsavtk (5) (11). This mutation is predicted to alter the normal function of BCOR. BCOR mutations are associated with a higher incidence of AML transformation in MDS patients and shorter overall survival in MDS patients (5) (11) (16). 7. BCOR c.635_638del, p.Fyy387Hodem*3 ([id number]) VAF: 6.2% This mutation is also predicted to alter the normal function of BCOR. TIER 2: Variants of Unknown Clinical Significance in Hematologic Malignancies 1. CEBPA c.1074_*9del, p.*359Cysext*58 (NM_[id number]) VAF: 4.7% CEBPA encodes a protein that is a member of the basic region leucine zipper family of test engineering technician factors (18). Somatic mutations of CEBPA are [...] if any, is uncertain. 2. CUX1 c.3085G>A, p.Znm1531Yeb (NM_[id number]) VAF: 44.8% This variant has been rarely reported in hematologic malignancies (1) (10), to the best of our knowledge. References 1: Lynnette P, Emmanuelle Kim, Zhanna CLARK et al, Assessment of Minimal Residual Disease by Next Generation Sequencing in Peripheral Blood as a Complementary Tool for Personalized Transplant Monitoring in Myeloid Neoplasms. J Clin Med 2020. PMID:[id number] 2: Juan Jackson Caughey B et al, Somatic mutations predict poor outcome in patients with myelodysplastic syndrome after hematopoietic stem-cell transplantation. J Clin Oncol 2014. PMID:44587153 3: cBioPortal: [email or web address].[email or web address]/ 4: COSMIC: [email or web address]://cancer.vipin.ac.uk/cosmic 5: Braulio F, Yu V, Nagata Y et al, BCOR and BCORL1 mutations in myelodysplastic syndromes and related disorders. Blood 2013. PMID:[id number] 6: Bill Payne, Jennifer Rubin, Víctor Stroud et al, JAK2 Mutations Are Rare and Diverse in Myelodysplastic Syndromes: Case Series and Review of the Literature. Hematol Rep 2022. PMID:12251688 7: Jahaira GRAY, Kamla Estrada, Mary F et al, IDH1 and IDH2 mutations in myelodysplastic syndromes and role in disease progression. Leukemia 2016. PMID:05166923 8: Asiya I, Day C, Mathieuer MM et al, Frequency, onset and clinical impact of somatic DNMT3A mutations in therapy-related and secondary acute myeloid leukemia. Haematologica 2012. PMID:[id number] 9: Nuha O, Idania D, Luanne M et al, CEBPA polymorphisms and mutations in patients with acute myeloid leukemia, myelodysplastic syndrome, multiple myeloma and non-Hodgkin's lymphoma. Blood Cells Mol Dis 2008. PMID:03567973 10: Cassandra B, Cornell M, Alexis A et al, DNA methylation epitypes highlight underlying developmental and disease pathways in acute myeloid leukemia. Genome Res 2020. PMID:[id number] 11: Jenna Burton, Alondra DEMPSEY et al, Whole-exome sequencing identifies somatic mutations of BCOR in acute myeloid leukemia with normal karyotype. Blood 2011. PMID:[id number] 12: Lin RUEDA, Yashira W, Darcie E et al, BCoR, a novel corepressor involved in BCL-6 repression. Genes Dev 2000. PMID:61501511 13: Fabian SS, Jen SJ, Amandeep LR et al, Nolan/STAT pathways in cytokine signaling and myeloproliferative disorders: approaches for targeted therapies. Genes Cancer 2010. PMID:[id number] 14: oJse J Broussard, Charity Barcenas, Grayson Stroud et al, Mutations of IDH1 and IDH2 genes in early and accelerated phases of myelodysplastic syndromes and MDS/myeloproliferative neoplasms. Leukemia 2010. PMID:41295719 15: Malaika M, Catherine Rubin, Ahsan W et al, Molecular analysis of myelodysplastic syndrome with isolated deletion of the long arm of chromosome 5 reveals a specific spectrum of molecular mutations with prognostic impact: a study on 123 patients and 27 genes. Haematologica 2017. PMID:[id number] 16: Gregoria BAR, Meliton T, Valerie Payne et al, Spectrum and prognostic relevance of utility worker driver gene mutations in acute myeloid leukemia. Blood 2016. PMID:[id number] 17: Mel Hughes, Milton P et al, Dominant-negative mutations of CEBPA, encoding CCAAT/enhancer binding protein-alpha (C/EBPalpha), in acute myeloid leukemia. Yusra Emely 2001. PMID:38664719 18: Mel Hughes, Complexity of CEBPA dysregulation in human acute myeloid leukemia. Clin Cancer Res 2009. PMID:70235420 19: Nargis Estrada, Jose M, Hugh Stroud et al, Clinical and biological implications of utility worker driver mutations in myelodysplastic syndromes. Blood 2013. PMID:[id number] 20: Eileen MURPHY, Rajinder CHRISTY, Juju OTERO et al, Differential prognostic effect of IDH1 versus IDH2 mutations in myelodysplastic syndromes: a [facility] study of 277 patients. Leukemia 2012. PMID:[id number] 21: Eileen MURPHY, George TL, Genomics of myelodysplastic syndrome/myeloproliferative neoplasm overlap syndromes. Hematology Am Soc Hematol Educ Program 2020. PMID:[id number] 22: Malika Beauchamp, Heather N et al, Favorable prognostic significance of CEBPA mutations in patients with de elinor acute myeloid leukemia: a study from the Acute Leukemia [place] Association (JOSE). Blood 2002. PMID:[id number] 23: Bulmaro BENTON, Josse H, Isocitrate dehydrogenase 1 and 2 mutations in cancer: alterations at a crossroads of cellular metabolism. J Natl Cancer Inst 2010. PMID:[id number] 24: Jose Valdivia, Ivan V, Yudi U et al, Koppel analysis of DNMT3A mutations in hematological malignancies. Leukemia 2013. PMID:[id number] 25: Kim AH, Lisa-Hussein O, Arnulfo REINOSO et al, The role of mutations in epigenetic regulators in myeloid malignancies. Yusra Rev Cancer 2012. PMID:[id number] 26: Robby Mason, Hubert ISSA, Efrem Payne et al, CEBPA mutations in 4708 patients with acute myeloid leukemia: differential impact of bZIP and TAD mutations on outcome. Blood 2021. PMID:[id number] 27: Fabiola Mason, Roverto ASH, Sam Lynn et al, IDH1 mutations in patients with myelodysplastic syndromes are associated with an unfavorable prognosis. Haematologica 2010. PMID:96297214 28: Lisa Richmond, Bro Valdivia et al, Rare occurrence of DNMT3A mutations in myelodysplastic syndromes. Haematologica 2011. PMID:[id number] 29: Josey S, Liam SAAB, Joan H et al, Genetic alterations of the cohesin complex genes in myeloid malignancies. Blood 2014. PMID:[id number] 30: Barrett MERRITT, Tono L, Jossue D et al, Recurrent DNMT3A mutations in patients with myelodysplastic syndromes. Leukemia 2011. PMID:[id number] 31: Lawrence Camargo, Juan Diego B, Comparison and Implications of Mutational Profiles of Myelodysplastic Syndromes, Myeloproliferative Neoplasms, and Myelodysplastic/Myeloproliferative Neoplasms: A [place]-Analysis. Front Oncol 2020. PMID:[id number] 32: Cornell N, Cornell F, Yuval N et al, IDH1 Mutation Is an Independent Inferior Prognostic Indicator for Patients with Myelodysplastic Syndromes. Acta Haematol 2017. PMID:[id number] 33: Packer L, Gabriella R, Hieu ALBERTS, DNMT3A in haematological malignancies. Yusra Rev Cancer 2015. PMID:[id number] This result has been reviewed and approved by Jannette Dutta M.D. Low coverage regions: Listed below are regions where the average sequencing depth (number of times a particular nucleotide is sequenced) in at least 20% of the gyiuiy-gn-ywcdnzwn is less than our stringent cutoff of 300. Sensitivity for detection of low allelic frequency variants may be reduced in areas with reduced depth of coverage. None BACKGROUND INFORMATION: Myeloid Malignancies Mutation Panel by Next Generation Sequencing CHARACTERISTICS: Myeloid malignancies are clonal disorders of [...] NOTCH1; NPM1*; NRAS; NSD1; PHF6; PIGA; PPM1D; UJIU76Y; PRPF8; PTPN11; RAD21; RUNX1; SAMD9; SAMD9L; SETBP1; [...] developed and its performance characteristics determined by [facility]. It has not been cleared or approved by the U.S. Food and Drug Administration. This test was performed in a CLIA-certified laboratory and is intended for clinical purposes. Myeloid Malignancy Dx Mds Unspec 03/28/2024 2:06 PM ICE SKATING COACH [facility] [employer] ([facility]) Myeloid Malignancy Panel Specimen Bone Marrow 03/28/2024 2:06 PM ICE SKATING COACH [facility] [employer] ([facility]) EER Myeloid Malignancy See Note 03/28/2024 2:06 PM ICE SKATING COACH [facility] [employer] ([facility]) Comment: Authorized individuals can access the [facility] Enhanced Report using the following link: [email or web address] Performed By: [facility] [address] [place] [address] Packager: Uche Morley MD, PhD CLIA Number: [id number] Other BONE MARROW SPECIMEN / Unknown Collection / Unknown 03/15/2024 9:05 AM ICE SKATING COACH 03/15/2024 9:30 AM ICE SKATING COACH Rodo Perez MD LAB - PATHOLOG Y/CYTOLOGY ORDERABLES Performing Organization Address City/State/[facility] [place] Co de Phone Number [facility] [employer] [facility]) [address] [place] [address] * FISH PML/DANTE PANEL (03/15/2024 9:05 AM ICE SKATING COACH) Only the most recent of2 resultswithin the time period is included. EER PML/DANTE Translocation by Fish See Note 03/17/2024 4:41 PM ICE SKATING COACH [employer] ([facility]) Comment: Authorized individuals can access the [facility] Enhanced Report using the following link: [email or web address] Performed By: [facility] [address] [place] [address] Packager: Uche Morley MD, PhD CLIA Number: [id number] PML/DANTE Translocation by FISH See Note 03/17/2024 4:41 PM ICE SKATING COACH [employer] [employer] ([facility]) Comment: Test Performed: PML-DANTE Translocation by FISH (FISH PML) Specimen Type: Bone Marrow Indication for Testing: MDS RESULT Normal FISH Result t(15;17) PML::DANTE Fusion: not detected INTERPRETATION There was no evidence of PML::DANTE fusion due to translocation (15;17)(q24;q21). This analysis was performed with the PML/DANTE probes ([employer]). A total of 200 cells were scored. Cytogenomic Nomenclature (ISCN): nuc nereyda(PML,DANTE)x2[200' This result has been reviewed and approved by Nabila Gonzalez, PhD, [facility] A portion of this analysis was performed at the following location(s): [facility] INTERPRETIVE INFORMATION: PML/DANTE Translocation by FISH This test was developed and its performance characteristics determined by [facility] [employer]. It has not been cleared or approved by the US Food and Drug Administration. This test was performed in a CLIA certified laboratory and is intended for clinical purposes. Other BONE MARROW SPECIMEN / Unknown Collection / Unknown 03/15/2024 9:05 AM ICE SKATING COACH 03/15/2024 9:30 AM ICE SKATING COACH Rodo Perez MD LAB - PATHOLOG Y/CYTOLOGY ORDERABLES [facility] ([facility]) [address] * FLOW CYTOMETRY BLOOD PROFILE (03/14/2024 10:32 AM ICE SKATING COACH) Case Report Flow Cytometry Case: [id number] Authorizing Provider: Ghanshyam Dewey PA-C Collected: 03/14/2024 10:32 AM Ordering Location: [facility] 7N ACUTE Received: 03/14/2024 01:49 PM Pathologist: Angeles Rosado MD Specimen: Blood 03/14/2024 4:58 PM ICE SKATING COACH [facility] Final Diagnosis Peripheral blood, flow cytometric immunophenotypic analysis: - 1.2% myeloblasts detected - No evidence of a monoclonal B-cell population - See interpretation 03/14/2024 4:58 PM [facility] Flow Cytometry Results Differential Result Comment WBC Count /uL 1,200 Total Viability % 100.0 Lymphocytes % 80 Dim CD45 Region % 4 Monocytes % 4 Granulocytes % 13 03/14/2024 4:58 PM [facility] Flow Cytometry Interpretation Viability: 100% B-cells: polytypic, kappa:lambda ratio 1.1:1. Blasts: 1.2% of events are myeloblasts. Monocytes are mature. A peripheral blood smear prepared from the flow cytometry specimen has been reviewed for senior data quality analyst purposes. 03/14/2024 4:58 PM [facility] Reason for test MDS (myelodysplastic syndrome) (HCC) 238.75 03/14/2024 4:58 PM [facility] Client Specimen ID # [id number] 03/14/2024 4:58 PM [facility] Pathologist Location at [facility] 03/14/2024 4:58 PM [facility] Disclaimer Test performed at [facility], [address] [place] [address], [address]. *The established laboratory minimum viability is 70%. [...] high complexity clinical testing. 03/14/2024 4:58 PM [facility] Embedded Images 4:58 PM [facility] Number of markers 19 were performed. A-2 Flow CD10 A-3 Flow CD13 A-5 Flow CD20 A-11 Flow CD2 A-13 Flow CD14 A-16 Flow CD117 A-17 Flow CD11b A-18 Flow CD11c A-1 Flow CD5 A-4 Flow CD19 A-6 Flow CD33 A-7 Flow CD34 A-8 Flow CD45 A-12 Flow CD7 A-14 Flow CD56 A-15 Flow CD64 A-9 Osborn+CD19+ A-10 Lambda+CD19+ A-19 Flow HLA-DR 03/14/2024 4:58 PM ICE SKATING COACH [facility] Blood BLOOD SPECIMEN / Unknown Lab Venipuncture / Unknown 03/14/2024 10:32 AM ICE SKATING COACH 03/14/2024 1:49 PM ICE SKATING COACH Ghanshyam Dewey PA-C LAB - PATHOLOGY/CYTO LOGY ORDERABLES [facility] [address] [place], [place] [address] [phone] * CYTOMEGALOVIRUS (CMV) QUANTITATIVE PLASMA (03/13/2024 11:26 PM ICE SKATING COACH) CMV Quant by PCR, Interp Not detected Not detected 03/14/2024 9:[address] [facility] Blood BLOOD SPECIMEN / Unknown Venipuncture / Unknown 03/13/2024 11:26 PM ICE SKATING COACH 03/13/2024 11:37 PM ICE SKATING COACH Narrative [facility] - 03/14/2024 9:00 AM ICE SKATING COACH The Cytomegalovirus (CMV) DNA analysis utilized a [...] specimens.. The analysis was performed using a [employer]. FDA approved test methodology Bruce sharon CMV. Ted Soler MD LAB - CHEMISTRY OR DERABLES Performing Organization Address City/[facility]/ZIP Co de Phone Number [facility] [address] [place] [address], [facility] [phone] * QUINN-TOVAR VIRUS QUANT BLOOD STL (03/13/2024 11:26 PM ICE SKATING COACH) [facility] EBV Quant by PCR, Interp Not detected Not detected 03/14/2024 8:[address] [facility] Specimen Type Plasma 03/14/2024 8:[address] [facility] Blood BLOOD SPECIMEN / Unknown Venipuncture / Unknown 03/13/2024 11:26 PM ICE SKATING COACH 03/13/2024 11:37 PM ICE SKATING COACH Narrative [facility] - 03/14/2024 8:56 AM ICE SKATING COACH The Quinn-Tovar viral (EBV) DNA analysis utilized [...] - CHEMISTRY OR DERABLES Performing Organization Address City/[facility]/ZIP Co de Phone Number [facility] [address] [place] [address], [facility] [phone] * D-DIMER (03/13/2024 11:26 PM ICE SKATING COACH) D-Dimer Quantitative <0.27 <=0.50 mcg/mL FEU 03/14/2024 12:[address] [facility] Comment: In the absence of clinical symptoms, a value less than or equal to 0.5 mcg/mL FEU significantly decreases the probability of PE/DVT (negative predictive value >95%). 1 mcg/mL FEU = 1 Fibrinogen Equivalent Unit (approximates 0.5 mcg/ml of D- Dimer). ISTH DIAGNOSTIC SCORING SYSTEM FOR DIC Score 0 1 2 3 Platelet Count(x10^3/uL) > 100 < 100 < 50 N/A PT Prolongation above upper limit of normal 0-3 3-6 > 6 N/A range (seconds) Fibrinogen (mg/dL) > 100 < 100 N/A N/A D-Dimer (mcg/mL FEU) < 0.50 N/A 0.50-5.0 > 5 Calculate Cumulative Score: > or = 5 :compatible with overt DIC < 5 :suggestive for non-overt DIC N/A = Non applicable Reference: Br. J. Haematol. 145:24-33,2009. Blood BLOOD SPECIMEN / Unknown Venipuncture / Unknown 03/13/2024 11:26 PM ICE SKATING COACH 03/13/2024 11:37 PM ICE SKATING COACH Ted Soler MD LAB - COAGULATION ORDERABLES [address] [address], [place] [phone] * FIBRINOGEN ACTIVITY (03/13/2024 11:26 PM ICE SKATING COACH) Pathologist [facility] Fibrinogen Clauss 362 200 - 400 mg/dL 03/13/2024 11:59 PM ICE SKATING COACH [facility] Blood BLOOD SPECIMEN / Unknown Venipuncture / Unknown 03/13/2024 11:26 PM ICE SKATING COACH 03/13/2024 11:37 PM ICE SKATING COACH Ted Soler MD LAB - COAGULATION ORDERABLES Performing Organization Address City/[facility]/ZIP Co de Phone Number [address] [address], [place] [phone] * FISH AML+MDS PANEL BLOOD OR BONE MARROW (03/04/2024 4:13 PM ICE SKATING COACH) FISH AML with MDS, Therapy-Rltd AML See Note Normal 03/19/2024 4:32 PM ICE SKATING COACH [facility] [employer] ([facility]) Comment: Test Performed: Acute Myelogenous Leukemia (AML) with Myelodysplastic Syndrome (MDS) or Therapy-Related AML, by FISH (F TAML MDS) Specimen Type: Peripheral Blood Indication for Testing: D46.9 Myelodysplastic syndrome RESULT Normal FISH Result Deletion 5q: not detected Monosomy 7: not detected Deletion 7q: not detected 11q23 (KMT2A) Rearrangement: not detected INTERPRETATION There was no evidence of deletion 5q31, monosomy 7, deletion 7q31, or 11q23 KMT2A (MLL) rearrangement. This analysis was performed with the Therapy-Related AML panel probes D5S23/EGR1, D7Z1/V7L460, and MLL (KMT2A) ([employer]). A total of 200 cells were scored for each probe. Cytogenomic Nomenclature (ISCN): nuc nereyda(D5S23,EGR1,D7Z1,G7Z010,KMT2A)x2[200' This result has been reviewed and approved by Charles Pablo MD, [facility] INTERPRETIVE INFORMATION: AML with MDS, Therapy-Related AML, FISH This test was developed and its performance characteristics determined by [facility]. It has not been cleared or approved by the US Food and Drug Administration. This test was performed in a CLIA certified laboratory and is intended for clinical purposes. EER AML with MDS, Therapy-Rltd AML FISH See Note 03/19/2024 4:32 PM ICE SKATING COACH [employer] ([facility]) Comment: Authorized individuals can access the [employer] Enhanced Report using the following link: [email or web address] Performed By: [facility] [address] [place] [address] Packager: Uche Morley MD, PhD CLIA Number: [id number] Other BLOOD SPECIMEN / Unknown Collection / Unknown 03/04/2024 4:13 PM ICE SKATING COACH 03/04/2024 4:23 PM ICE SKATING COACH Cindy Garcia MD LAB - PATHOLOGY/CYTO LOGY ORDERABLES [facility] ([facility]) [address] [place] [address], [facility] * HLA TYPING LOW/HIGH RESOLUTION DPB1 (03/04/2024 4:13 PM ICE SKATING COACH) Typ DNA LR DPB1 Allele #1 *04 04/29/2024 2:56 PM ICE SKATING COACH [facility] ([facility]) Typ DNA LR DPB1 Allele #2 *11 04/29/2024 2:56 PM ICE SKATING COACH [facility] ([facility]) Typ DNA HR DPB1 Allele #1 *04:01:01G 04/29/2024 2:56 PM ICE SKATING COACH [facility] ([facility]) Typ DNA HR DPB1 Allele #2 *11:01:01G 04/29/2024 2:56 PM ICE SKATING COACH [facility] ([facility]) Test Methodology RTPCR/NGS 04/29/19 2:56 PM ICE SKATING COACH [facility] ([facility]) Date Results Entered [id number] 04/29/2024 2:56 PM ICE SKATING COACH [facility] ([facility]) Comment: Methodology - Next Generation Sequencing This test was developed and its performance characteristics determined by the [facility]. It has not been cleared or approved by the U.S. Food and Drug Administration. The FDA has determined that such clearance or approval is not necessary. This test is used for clinical purposes. It should not be regarded as investigational or for research. This laboratory is certified under the Clinical Laboratory Improvement Amendments of 1988 (CLIA-88) as qualified to perform high complexity clinical laboratory testing. CLIA ID# [id number] Performed at: [facility], [address] [place] [id number] Industrial Ecology Technician: Sandeep Jerry, Ph.D., D([employer]), Blood BLOOD SPECIMEN / Unknown Lab Venipuncture / Unknown 03/04/2024 4:13 PM ICE SKATING COACH 03/05/2024 9:56 AM ICE SKATING COACH Cindy Garcia MD LAB - BLOOD BANK ORD ERABLES [facility] ([facility]) [address] [place] [address], [facility] * HLA TYPING DNA LOW RESOLUTION DR,DQ (03/04/2024 4:13 PM ICE SKATING COACH) DR DQ Low Resolution DRB1-1 *07 04/29/2024 2:56 PM ICE SKATING COACH [facility] ([facility]) DR DQ Low Resolution DQB1-1 *02 04/29/2024 2:56 PM ICE SKATING COACH [facility] ([facility]) DR DQ Low Resolution DRB3-1 Negative 04/29/2024 2:56 PM ICE SKATING COACH [facility] ([facility]) DR DQ Low Resolution DRB3-2 Negative 04/29/2024 2:56 PM ICE SKATING COACH [facility] ([facility]) DR DQ Low Resolution DRB4-1 *01 04/29/2024 2:56 PM ICE SKATING COACH [facility] ([facility]) DR DQ Low Resolution DRB4-2 Negative 04/29/2024 2:56 PM ICE SKATING COACH [facility] ([facility]) DR DQ Low Resolution DRB5-1 Negative 04/29/2024 2:56 PM ICE SKATING COACH [facility] ([facility]) DR DQ Low Resolution DRB5-2 Negative 04/29/2024 2:56 PM ICE SKATING COACH [facility] ([facility]) DR DQ Low Resolution Methodology Real Time PCR 04/29/2024 2:56 PM ICE SKATING COACH [facility] ([facility]) DR DQ Low Resolution test date [id number] 04/29/2024 2:56 PM ICE SKATING COACH [facility] ([facility]) Comment: Methodology - Real-Time PCR This test was developed and its performance characteristics determined by the [facility]. It has not been cleared or approved by the U.S. Food and Drug Administration. The FDA has determined that such clearance or approval is not necessary. This test is used for clinical purposes. It should not be regarded as investigational or for research. This laboratory is certified under the Clinical Laboratory Improvement Amendments of 1988 (CLIA-88) as qualified to perform high complexity clinical laboratory testing. CLIA ID# [id number] Performed at: [facility], [address] [place] [address] Industrial Ecology Technician: Sandeep Jerry, Ph.D., D([employer]), Blood BLOOD SPECIMEN / Unknown Lab Venipuncture / Unknown 03/04/2024 4:13 PM ICE SKATING COACH 03/05/2024 9:56 AM ICE SKATING COACH Cindy Garcia MD LAB - BLOOD BANK ORD ERABLES [facility] ([facility]) [address] * HLA TYPING DNA LOW RESOLUTION A,B,C (03/04/2024 4:13 PM ICE SKATING COACH) ABC DNA A1 *02 04/29/2024 2:56 PM ICE SKATING COACH [facility] ([facility]) ABC DNA A2 *30 04/29/2024 2:56 PM ICE SKATING COACH [facility] ([facility]) ABC DNA B1 *13 04/29/2024 2:56 PM ICE SKATING COACH [facility] ([facility]) ABC DNA B2 *44 04/29/2024 2:56 PM ICE SKATING COACH [facility] ([facility]) ABC DNA BW1 4 04/29/2024 2:56 PM ICE SKATING COACH [facility] ([facility]) ABC DNA BW2 4 04/29/2024 2:56 PM ICE SKATING COACH [facility] ([facility]) ABC DNA C1 *06 04/29/2024 2:56 PM ICE SKATING COACH [facility] ([facility]) ABC DNA C2 *16 04/29/2024 2:56 PM ICE SKATING COACH [facility] ([facility]) ABC DNA Methodology Real Time PCR 04/29/2024 2:56 PM ICE SKATING COACH [facility] ([facility]) ABC DNA Test Date [id number] 2:56 PM ICE SKATING COACH [facility] ([facility]) Comment: Methodology - Real-Time PCR This test was developed and its performance characteristics determined by the [facility]. It has not been cleared or approved by the U.S. Food and Drug Administration. The FDA has determined that such clearance or approval is not necessary. This test is used for clinical purposes. It should not be regarded as investigational or for research. This laboratory is certified under the Clinical Laboratory Improvement Amendments of 1988 (CLIA-88) as qualified to perform high complexity clinical laboratory testing. CLIA ID# [id number] Performed at: [facility], [address] [place] [id number] Industrial Ecology Technician: Sandeep Jerry, Ph.D., D([employer]), Blood BLOOD SPECIMEN / Unknown Lab Venipuncture / Unknown 03/04/2024 4:13 PM ICE SKATING COACH 03/05/2024 9:56 AM ICE SKATING COACH Cindy Garcia MD LAB - BLOOD BANK ORD ERABLES Performing Organization Address City/[facility]/ZIP Co de Phone Number [facility] ([facility]) [address] * HLA TYPING DNA HIGH RESOLUTION DR (03/04/2024 4:13 PM ICE SKATING COACH) Blood BLOOD SPECIMEN / Unknown Lab Venipuncture / Unknown 03/04/2024 4:13 PM ICE SKATING COACH 03/05/2024 9:56 AM ICE SKATING COACH Narrative [facility] ([facility]) - 04/29/2024 4:00 PM ICE SKATING COACH See Scanned Report Cindy Garcia MD LAB - BLOOD BANK ORD ERACAROL Performing Organization Address City/[facility]/ZIP Co de Phone Number [facility] ([facility]) [address] * HLA TYPING DNA HIGH RESOLUTION DQ (03/04/2024 4:13 PM ICE SKATING COACH) Blood BLOOD SPECIMEN / Unknown Lab Venipuncture / Unknown 03/04/2024 4:13 PM ICE SKATING COACH 03/05/2024 9:56 AM ICE SKATING COACH Narrative [facility] ([facility]) - 04/29/2024 4:00 PM ICE SKATING COACH See Scanned Report Cindy Garcia MD LAB - BLOOD BANK ORD ERACAROL Performing Organization Address City/[facility]/ZIP Co de Phone Number [facility] ([employer]) [address] * HLA TYPING DNA HIGH RESOLUTION B (03/04/2024 4:13 PM ICE SKATING COACH) Blood BLOOD SPECIMEN / Unknown Lab Venipuncture / Unknown 03/04/2024 4:13 PM ICE SKATING COACH 03/05/2024 9:56 AM ICE SKATING COACH Narrative [facility] ([employer] [employer]) - 04/29/2024 4:00 PM ICE SKATING COACH See Scanned Report Cindy Garcia MD LAB - BLOOD BANK ORD BashaBLES Performing Organization Address City/[facility]/ZIP Co de Phone Number [facility] ([employer]) [address] [place] [address] * HLA TYPING DNA HIGH RESOLUTION A (03/04/2024 4:13 PM ICE SKATING COACH) Blood BLOOD SPECIMEN / Unknown Lab Venipuncture / Unknown 03/04/2024 4:13 PM ICE SKATING COACH 03/05/2024 9:56 AM ICE SKATING COACH Narrative [facility] ([facility]) - 04/29/2024 4:01 PM ICE SKATING COACH See Scanned Report Cindy Garcia MD LAB - BLOOD BANK ORD goodideazs Performing Organization Address [facility] Co de Phone Number [facility] ([employer]) [facility] * HLA TYPING DNA HIGH RESOLUTION C (03/04/2024 4:13 PM ICE SKATING COACH) Blood BLOOD SPECIMEN / Unknown Lab Venipuncture / Unknown 03/04/2024 4:13 PM ICE SKATING COACH 03/05/2024 9:56 AM ICE SKATING COACH Narrative [facility] ([employer]) - 04/29/2024 4:01 PM ICE SKATING COACH See Scanned Report Cindy Garcia MD LAB - BLOOD BANK ORD goodideazs Performing Organization Address City/[facility] Co de Phone Number [facility] ([employer]) [facility] * CHROMOSOME ANALYSIS LEUKEMIA BLD (03/04/2024 4:13 PM ICE SKATING COACH) [facility] Signature Chromosome Analysis Leukemic Blood See Note Normal 03/23/2024 12:39 PM ICE SKATING COACH [facility] [employer] ([facility]) Comment: Test Performed: Chromosome Analysis Specimen Type: [...] FISH AML/PML and TAML MDS performed under [facility] accessions [id number] and [id number] were NORMAL. This result has been reviewed and approved by Margaret Roberson, PhD, [facility] INTERPRETIVE INFORMATION: Chromosome Analysis, Leukemic Blood This test was developed and its performance characteristics determined by [facility]. It has not been cleared or approved by the US Food and Drug Administration. This test was performed in a CLIA certified laboratory and is intended for clinical purposes. EER Chromosome Analysis Leukemic See Note 03/23/2024 12:39 PM ICE SKATING COACH [facility] ([facility]) Comment: Authorized individuals can access the [employer] Enhanced Report using the following link: [email or web address] Performed By: [facility] [address] [place] [id number] Packager: Uche Morley MD, PhD CLIA Number: [id number] Blood BLOOD SPECIMEN / Unknown Lab Venipuncture / Unknown 03/04/2024 4:13 PM ICE SKATING COACH 03/22/2024 5:28 PM ICE SKATING COACH Cindy Garcia MD LAB - PATHOLOGY/CYTO LOGY ORDERABLES [facility]) [address] * HIV-1 HIV-2 ANTIBODY + HIV P24 AG PANEL (New on 08/24) (03/04/2024 4:13 PM ICE SKATING COACH) Pathologist [facility] HIV Antigen/Antibod y 1 & 2 Non-reacti ve Non-react carlos 03/04/2024 5:12 PM ICE SKATING COACH [facility] Comment:No Laboratory eviden ce of HIV infection. Blood BLOOD SPECIMEN / Unknown Lab Venipuncture / Unknown 03/04/2024 4:13 PM ICE SKATING COACH 03/04/2024 4:23 PM ICE SKATING COACH Cindy Garcia MD LAB - CHEMISTRY ORDE JOCELIN Performing Organization Address City/[facility]/ZIP Co de Phone Number [facility] [place] [phone], [facility] [phone] * BCR-ABL1 CML+AML PCR QUANT PNL (03/04/2024 4:13 PM ICE SKATING COACH) Pathologist [facility] Interpretation TNP 03/13/2024 5:08 PM ICE SKATING COACH [facility] ([facility]) Comment: Unable to obtain results. Repeated efforts to analyze this specimen have been unsuccessful. LOW CONTROL GENE COPY NUMBER INDICATED SPECIMEN DEGRADATION. Director Review Comment 5:08 PM ICE SKATING COACH [facility] ([facility]) Comment: Dawood Sarabia, PhD, [facility] Director, Molecular Oncology [facility] [place] [address] Background Comment 03/13/2024 5:08 PM ICE SKATING COACH [facility] ([facility]) Comment: This assay can detect three different [...] as indicated. Methodology Comment 03/13/2024 5:08 PM ICE SKATING COACH [facility] ([facility]) Comment: Total RNA is isolated from the [...] developed and its performance characteristics determined by [facility]. It has not been cleared or approved by the Food and Drug Administration. Blood BLOOD SPECIMEN / Unknown Lab Venipuncture / Unknown 03/04/2024 4:13 PM ICE SKATING COACH 03/04/2024 4:24 PM ICE SKATING COACH Narrative [facility] ([facility]) - 03/13/2024 5:08 PM ICE SKATING COACH Performed at: 01 - [facility] [address] [facility] [place], [place] [id number] Industrial Ecology Technician: Cinthya Roper [facility], Phone: [phone] Performed at: 02 - [facility] [address] [facility] [place] [id number] Industrial Ecology Technician: Cinthya Roper [facility], Phone: [phone] Cindy Garcia MD LAB - CHEMISTRY CHELI MONREAL [facility] ([facility]) [address] [place] [address], [facility] * TSH REFLEX FREE T4 (03/04/2024 4:13 PM ICE SKATING COACH) [facility] TSH 0.961 0.350 - 4.940 uIU/mL 03/04/2024 5:29 PM ICE SKATING COACH [facility] Blood BLOOD SPECIMEN / Unknown Lab Venipuncture / Unknown 03/04/2024 4:13 PM ICE SKATING COACH 03/04/2024 4:27 PM ICE SKATING COACH Cindy Garcia MD LAB - CHEMISTRY CHELI MONREAL Performing Organization Address City/[facility]/ZIP Co de Phone Number [address] [address], [facility] [phone] * RHEUMATOID FACTOR BLOOD QUANTITATIVE (03/04/2024 4:13 PM ICE SKATING COACH) [facility] Rheumatoid Factor <15 <30 IU/mL 03/04/2024 4:57 PM ICE SKATING COACH [facility] Rheumatoid Factor Screen Negative Negative 03/04/2024 4:57 PM ICE SKATING COACH [facility] Blood BLOOD SPECIMEN / Unknown Lab Venipuncture / Unknown 03/04/2024 4:13 PM ICE SKATING COACH 03/04/2024 4:23 PM ICE SKATING COACH Cindy Garcia MD LAB - CHEMISTRY CHELI MONREAL Performing Organization Address City/[facility]/ZIP Co de Phone Number [address] [address], [place] [phone] * CYTOMEGALOVIRUS ANTIBODY IGG BLOOD (03/04/2024 4:13 PM ICE SKATING COACH) [facility] Cytomegalovirus Antibody IgG <0.20 <=0.70 U/mL 03/05/2024 9:27 PM ICE SKATING COACH [facility] ([facility]) Comment: INTERPRETIVE INFORMATION: Cytomegalovirus Antibody, IgG 0.59 U/mL or less......... Not Detected 0.6 - 0.69 U/mL........... Indeterminate-Repeat testing in 10-14 days may be helpful. 0.70 U/mL or greater...... Detected In immunocompromised patients, [...] laboratory at the same time. Performed By: [place] [address] Packager: Uche Morley MD, PhD CLIA Number: [id number] Blood BLOOD SPECIMEN / Unknown Lab Venipuncture / Unknown 03/04/2024 4:13 PM ICE SKATING COACH 03/04/2024 4:23 PM ICE SKATING COACH Cindy Garcia MD LAB - CHEMISTRY CHELI MONREAL Performing Organization Address City/[facility]/ZIP Co de Phone Number [address] [address] * C-REACTIVE PROTEIN (03/04/2024 4:13 PM ICE SKATING COACH) [facility] C-Reactive Protein 0.5 <=0.5 mg/dL 03/04/2024 4:56 PM ICE SKATING COACH [facility] Blood BLOOD SPECIMEN / Unknown Lab Venipuncture / Unknown 03/04/2024 4:13 PM ICE SKATING COACH 03/04/2024 4:27 PM ICE SKATING COACH Cindy Garcia MD LAB - CHEMISTRY CHELI MONREAL [address] [address], [facility] [phone] * MARLINE BLOOD SCREEN W/REFLEX TITER (03/04/2024 4:13 PM ICE SKATING COACH) [facility] MARLINE IgG None Detected None Detected 03/05/2024 11:42 PM ICE SKATING COACH [facility] ([facility]) Comment: If suspicion of connective tissue disease is strong and MARLINE EIA is negative, consider testing for MRALINE by IFA ([id number]). INTERPRETIVE INFORMATION: Anti-Nuclear Antibodies (MARLINE), IgG by TOÑA Antinuclear Antibodies (MARLINE), IgG by TOÑA: MARLINE specimens are screened using enzyme-linked immunosorbent assay (TOÑA) methodology. All TOÑA results reported as Detected are further tested by indirect fluorescent assay (IFA) using HEp-2 substrate with an IgG-specific conjugate. The MARLINE TOÑA screen is designed to detect antibodies against dsDNA, histones, SS-A (Ro), SS-B (La), Pimentel, Pimentel/[employer]ICAL [employer]PPORT 1 SOFTWARE ENGINEER, Scl-70, Mey-1, centromeric proteins, other antigens extracted from the HEp-2 cell nucleus. MARLINE TOÑA assays have been reported to have lower sensitivities than MARLINE IFA for systemic autoimmune rheumatic diseases (SARD). Negative results do not necessarily rule out SARD. Performed By: [facility] [address] [place] [id number] Packager: Uche Morley MD, PhD CLIA Number: [id number] Blood BLOOD SPECIMEN / Unknown Lab Venipuncture / Unknown 03/04/2024 4:13 PM ICE SKATING COACH 03/04/2024 4:23 PM ICE SKATING COACH Cindy Garcia MD LAB - CHEMISTRY CHELI MONREAL [facility]) [address] [place] [address], [facility] * ZINC BLOOD (03/04/2024 4:13 PM ICE SKATING COACH) [facility] Zinc 62.4 60.0 - 120.0 ug/dL 03/06/2024 6:35 AM ICE SKATING COACH [facility] ([facility]) Comment: INTERPRETIVE INFORMATION: Zinc, Serum or Plasma Elevated results may be due to skin or collection-related contamination, including the use of a noncertified metal-free collection/transport tube. If contamination concerns exist due to elevated levels of serum/plasma zinc, confirmation with a second specimen collected in a certified metal-free tube is recommended. Circulating zinc concentrations are dependent on albumin status and are depressed with malnutrition. Zinc may also be lowered with infection, inflammation, stress, oral contraceptives, and . Zinc may be elevated with zinc supplementation or fasting. Elevated zinc concentrations may interfere with copper absorption. This test was developed and its performance characteristics determined by [facility]. It has not been cleared or approved by the US Food and Drug Administration. This test was performed in a CLIA certified laboratory and is intended for clinical purposes. Performed By: [facility] [address] [place] [address] Packager: Uche Morley MD, PhD CLIA Number: [id number] Blood BLOOD SPECIMEN / Unknown Lab Venipuncture / Unknown 03/04/2024 4:13 PM ICE SKATING COACH 03/04/2024 4:23 PM ICE SKATING COACH Cindy Garcia MD LAB - CHEMISTRY CHELI MONREAL Performing Organization Address [facility] de Phone Number [facility]) [address] [place] [address] * COPPER BLOOD (03/04/2024 4:13 PM ICE SKATING COACH) [facility] Copper 108.5 70.0 - 140.0 ug/dL 03/06/2024 6:35 AM ICE SKATING COACH [facility] ([facility]) Comment: INTERPRETIVE INFORMATION: Copper, Serum or Plasma [...] developed and its performance characteristics determined by [facility]. It has not been cleared or approved by the US Food and Drug Administration. This test was performed in a CLIA certified laboratory and is intended for clinical purposes. Performed By: [facility] [address] [place] [address] Packager: Uche Morley MD, PhD CLIA Number: [id number] Blood BLOOD SPECIMEN / Unknown Lab Venipuncture / Unknown 03/04/2024 4:13 PM ICE SKATING COACH 03/04/2024 4:23 PM ICE SKATING COACH Cindy Garcia MD LAB - CHEMISTRY CHELI MONREAL Performing Organization Address [facility]/ZIP Co de Phone Number [facility]) [address] [place] [address], [facility] * ERYTHROCYTE SEDIMENTATION RATE (03/04/2024 4:13 PM ICE SKATING COACH) Pathologist [facility] Erythrocyte Sedimentation Rate Westergren 14 0 - 20 MM/HR 03/04/2024 5:10 PM ICE SKATING COACH [facility] Blood BLOOD SPECIMEN / Unknown Lab Venipuncture / Unknown 03/04/2024 4:13 PM ICE SKATING COACH 03/04/2024 4:27 PM ICE SKATING COACH Cindy Garcia MD LAB - HEMATOLOGY ORD ERABLES Performing Organization Address City/[facility]/ZIP Co de Phone Number [address] [address], [facility] [phone] * HEPATITIS B SURFACE ANTIBODY (03/04/2024 4:13 PM ICE SKATING COACH) [facility] Hepatitis B Virus Surface Antibody Non-react carlos Non-react carlos 03/04/2024 5:12 PM ICE SKATING COACH [facility] Comment: < 8 mIU/mL Hepatitis B surface Antibody (HBsAb). Nonreactive for HBsAb - individual is considered not immune to Hepatitis B Virus infection. Hepatitis B Surface Antibody Quantitative 0.3 <8.0 mIU/mL 03/04/2024 5:12 PM ICE SKATING COACH [facility] Comment: Hepatitis B Surface Antibody Numeric Result Interpretation: Nonreactive: <8.0 mIU/mL Indeterminate: 8.0 - 12.0 mIU/mL Reactive: >12.0 mIU/mL Blood BLOOD SPECIMEN / Unknown Lab Venipuncture / Unknown 03/04/2024 4:13 PM ICE SKATING COACH 03/04/2024 4:23 PM ICE SKATING COACH Cindy Garcia MD LAB - CHEMISTRY ORDE JOCELIN [address] [address], [place] [phone] * HEPATITIS B CORE ANTIBODY TOTAL (03/04/2024 4:13 PM ICE SKATING COACH) Pathologist [facility] HBc Antibody Total Non-reacti ve Non-reacti ve 03/04/2024 5:12 PM ICE SKATING COACH [facility] Blood BLOOD SPECIMEN / Unknown Lab Venipuncture / Unknown 03/04/2024 4:13 PM ICE SKATING COACH 03/04/2024 4:23 PM ICE SKATING COACH Cindy Garcia MD LAB - CHEMISTRY CHELI MONREAL [address] [address], [place] [phone] * FOLATE (03/04/2024 4:13 PM ICE SKATING COACH) Folate 17.7 7.0 - 31.4 ng/mL 03/04/2024 5:29 PM ICE SKATING COACH [facility] Blood BLOOD SPECIMEN / Unknown Lab Venipuncture / Unknown 03/04/2024 4:13 PM ICE SKATING COACH 03/04/2024 4:27 PM ICE SKATING COACH Cindy Garcia MD LAB - CHEMISTRY CHELI MONREAL [address] [address], [place] [phone] * VITAMIN B12 (03/04/2024 4:13 PM ICE SKATING COACH) Vitamin B12 524 213 - 816 pg/mL 03/04/2024 5:29 PM ICE SKATING COACH [facility] Blood BLOOD SPECIMEN / Unknown Lab Venipuncture / Unknown 03/04/2024 4:13 PM ICE SKATING COACH 03/04/2024 4:27 PM ICE SKATING COACH Cindy Garcia MD LAB - CHEMISTRY CHELI MONREAL [address] [address], [place] [phone] * (ABNORMAL) IRON + TRANSFERRIN PANEL [w/Transferrin Sat % + TIBC] (03/04/2024 4:13 PM ICE SKATING COACH) Iron 31(L) 50 - 175 ug/dL 03/04/2024 4:53 PM [facility] Transferrin 257 174 - 382 mg/dL 03/04/2024 4:53 PM [facility] Transferrin Saturation % 10(L) 16 - 50 % 03/04/2024 4:53 PM [facility] TIBC Calculated 321 240 - 450 ug/dL 03/04/2024 4:53 PM [facility] Blood BLOOD SPECIMEN / Unknown Lab Venipuncture / Unknown 03/04/2024 4:13 PM ICE SKATING COACH 03/04/2024 4:23 PM ICE SKATING COACH Cindy Garcia MD LAB - CHEMISTRY CHELI MONREAL [address] [address], [place] [phone] * HEPATITIS C ANTIBODY (03/04/2024 4:13 PM ICE SKATING COACH) Pathologist [facility] Hepatitis C Antibody Non-react carlos Non-reac tive 03/04/2024 5:12 PM [facility] Comment:Hepatitis C Antibody screen indicates no serologic evidence of past or current infection with Hepatitis C Virus. Patients with unexplained liver disease who are immunocompromised or suspected of having acute Hepatitis C infection may benefit from Nucleic Acid Test (YUSRA) for Hepatitis C Viral RNA to confirm Hepatitis C status. Blood BLOOD SPECIMEN / Unknown Lab Venipuncture / Unknown 03/04/2024 4:13 PM ICE SKATING COACH 03/04/2024 4:23 PM ICE SKATING COACH Cindy Garcia MD LAB - CHEMISTRY CHELI MONREAL [address] [address], [place] [phone] * (ABNORMAL) FERRITIN (03/04/2024 4:13 PM ICE SKATING COACH) Pathologist [facility] Ferritin 21(L) 22 - 275 ng/mL 03/04/2024 5:12 PM [facility] Blood BLOOD SPECIMEN / Unknown Lab Venipuncture / Unknown 03/04/2024 4:13 PM ICE SKATING COACH 03/04/2024 4:23 PM ICE SKATING COACH Cindy Garcia MD LAB - CHEMISTRY CHELI MONREAL [address] [address], [facility] [phone] * DERMATOPATHOLOGY (09/27/2023 12:00 AM CDT) Only the most recent of2 resultswithin the time period is included. Case Report Dermatopathology Report Case: [id number] Authorizing Provider: Timothy Banks MD Collected: 09/27/2023 12:00 AM Ordering Location: [facility] - Received: 09/28/2023 10:46 AM [facility] Lab Pathologist: Kerry Pringle MD Specimens: A) - Skin, left neck B) - Skin, left axilla 4 12:35 PM CDT DERMATOPATHOLOGY LABORATORY Final [...] specimen consists of a shave biopsy measuring [id number] mm. Jar 0. Specimen B: Received is [...] purposes. Billing Codes Specimen Charges Stain Charges [id number] 1 1 4 12:35 PM CDT DERMATOPATHOLOGY LABORATORY Embedded Images 4 12:35 PM CDT DERMATOPATHOLOGY LABORATORY Pathology/Cytology TISSUE SPECIMEN FROM SKIN / Unknown 09/27/2023 09/28/2023 10:46 AM CDT Miscellaneous samples (specimen) TISSUE SPECIMEN FROM SKIN / Unknown 09/27/2023 09/28/2023 10:46 AM CDT Timothy Banks MD LAB - PATHOLOGY/CYTO LOGY ORDERABLES Performing Organization Address City/State/[facility] Co de Phone Number DERMATOPATHOLOGY LABORATORY [facility] - Department of Dermatology [facility] Medicine [address] [place] [address], [address] [phone] Care Teams Nurse Transition Relationship Specialty Start Date End Date Timothy Banks [place] [address] [place] [address] PCP - General 10/19/18 Cindy Garcia MD [address] [place] [address] Inspector Hairspring/Oncologis t Hematology and Oncology 03/24/24
--- OUTSIDE RECORDS SUMMARY | 2024-05-27 11:39 | XMS_ITS | Encounter Summary ---
Author Organization [facility] Address [address] [place] [address] Phone Care Team Providers Care [employer] Project Manager Name Role Phone Timothy Banks MD Primary Care Provider + [phone] Encounter Details Date Type Department Care Team (Late st Contact Info) Description 08/25/2017 Orders Only [facility] ProviderDusty MD [address] [place] [address] Social History Tobacco Use Types Packs/Day Years Used Date Smoking Tobacco: Never Smokeless Tobacco: Never Alcohol Use Standard Drinks/Week Comments Yes 0 (1 standard drink = 0.6 oz pur e alcohol) Sex and Gender Information Value Date Recorded Sex Assigned at Not on file Legal Sex Male 4:19 AM DANCE DIRECTOR Gender Identity Male 01/12/2020 7:43 PM [...] on filedocumented in this encounter Care Teams Ediscovery Project Manager Relationship Specialty Start Date End Date Timothy Banks MD PCP - General 07/08/16 documented as of this encounter
--- OUTSIDE RECORDS SUMMARY | 2024-05-27 11:40 | XMS_ITS | Clinical Summary ---
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 1 06/01/2015 [...] Department Care Team Description 04/25/2024 3:00 PM CREDIT DIRECTOR Ancillary Procedure [facility] Card[facility] 8th [place] [address] [place] [address] SVT (supraventricular tachycardia) ([facility]) 04/25/2024 11:45 AM CREDIT DIRECTOR Office Visit [facility] Cardiology [address] [place] [address] 8th [place] [address] [place] [address] Alberto Moffett MD SVT (supraventricular tachycardia) ([facility]) 03/27/2024 3:15 PM CREDIT DIRECTOR Office Visit [facility] Card[facility] [address] [facility] [address] [place] [phone] Jayro Kaminski MD SVT (supraventricular tachycardia) ([facility]) (Primary Dx); QAMAR (obstructive sleep apnea); 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; RBBB; Hypertensive left ventricular hypertrophy, without heart failure; LVH (left ventricular hypertrophy); Bilateral lower extremity edema 03/22/2024 Telephone [facility] Hematology [address] [facility] [address] [place] [address] Adilene Gonsalves RN from Last 3 Months Immunizations Immunization Administration Dates Next Due Influenza, Quad, Adjuvantate [...] gerd, s/p hiatal hernia surfery, ch; Comments: [facility] 03/31/2016 - Hx Other Medical CKD; Comments: [facility] 03/31/2016 - GERD (gastroesophageal reflux disease) 1974 Cataract 2018 Chronic bronchitis (HCC) ? Heart disease 2016 Chronic kidney disease 2010 Sleep apnea 2018 Family History Medical History Relation Name Comments Alzheimer's disease Brother Emmett Amaya Alzheimer's disease Father Jeffrey Amaya Alzheimer's disease Mother Daisy Amaya Alzheimer's disease Sister Leslie Dewey Relation Name Status Comments Brother Emmett Amaya Father Jeffrey Amaya Mother Daisy Amaya Sister Leslie Dewey Social History Tobacco Use Types Packs/Day Years Used Date Smoking Tobacco: Never Smokeless Tobacco: Never Alcohol Use Standard Drinks/Week Comments Yes 0 (1 standard drink = 0.6 oz pur e alcohol) Sex and Gender Information Value Date Recorded Sex Assigned at Not on file Legal Sex Male 4:19 AM CREDIT DIRECTOR Gender Identity Male 01/12/2020 7:43 PM CDT Sexual Orientation Straight 01/12/2020 7: 43 PM CDT Obstetrics History Last Filed Vital Signs Vital Sign Reading Time Taken Comments Blood Pressure 142/82 04/25/2024 11:22 AM CREDIT DIRECTOR Pulse 77 04/25/2024 11:22 AM CREDIT DIRECTOR Temperature 36.3 C (97.4 F) 08/24/2023 9:29 AM CDT Respiratory Rate 18 08/24/2023 9:29 AM CDT Oxygen Saturation 97% 04/25/2024 11:22 AM CREDIT DIRECTOR Inhaled Oxygen Concentration - - Weight 97.8 kg (215 lb 9.6 oz) 04/25/2024 11:22 AM CREDIT DIRECTOR Height 185.4 cm (6' 1 ) 04/25/2024 11:22 AM CREDIT DIRECTOR Body Mass Index 28.44 04/25/2024 11:22 AM CREDIT DIRECTOR Plan of Treatment Health Maintenance Due Date [...] Procedure Name Priority Date/Time Associated Diagnosis Comments EXTENDED/GROUP HOME HOLTER PATCH (8 DAYS UP TO 15 DAYS) Routine 04/25/2024 12:44 PM CREDIT DIRECTOR SVT (supraventricular tachycardia) (HCC) ECG 12-LEAD Routine 04/25/2024 11:28 AM CREDIT DIRECTOR SVT (supraventricular tachycardia) (HCC) from Last 3 Months Results * Extended/Correction Holter Patch (8 days up to 15 days) (04/25/2024 12:44 PM CREDIT DIRECTOR) Anatomical Region Laterality Modality Electrocardiogra phy 04/25/2024 12:4 4 PM CREDIT DIRECTOR Narrative 05/23/2024 7:12 PM CREDIT DIRECTOR [facility] [place] [place] [address] HOLTER MONITOR Patient Name: NADEEM AMAYA W : 1945 (78y 5m) Gender: M Study Date: 04/25/2024 12:44:17 PM Ht(Inch): Wt(Lb): BSA: Tech: Location: [facility] Order Provider: ALBERTO MOFFETT BMI: Ref Provider: ALBERTO MOFFETT PROCEDURES: Holter Report: EXTENDED/GROUP HOME HOLTER PATCH (8 DAYS UP TO 15 DAYS) [CAR80]. Enrollment Period: 04/25/2024-05/09/2024. Monitor Number: [id number]. Patient Instructions: Patient picked up device from office and understand directions and use of the equipment. Location: [facility]. INDICATIONS: I47.10 Supraventricular tachycardia, unspecified. FINDINGS: Holter Data: Min Rate: 48 BPM Min Rate Timestamp: 2024-05-09 04:32:31 Max Rate: 253 BPM Max Rate Timestamp: 2024-05-07 11:48:36 Mean Rate: 79 BPM Singlets (PACs): 607814 events Couplets (PACs): 16427 events Total (SVE): 896844 events Singlets (PVCs): 1335 events Couplets (PVCs): 2 events Total (VE): 1350 events Total beats: 9549824 Protocol: Recording Duration (Actual): 1441576.12 Total QRS: 1809903 SUMMARY: *The predominant rhythm was sinus with Frequent Supraventricular Ectopy. *The Maximum Heart Rate recorded was 253 bpm, 05/07 11:48:36, the Minimum Heart Rate recorded was 48 bpm, 05/09 04:32:31, and the Average Heart Rate was 79 bpm. *There were 1,350 VE beats with a burden of <1 %. There was 1 occurrence of Ventricular Tachycardia with the Fastest episode 170 bpm, 04/27 10:55:48, and the Longest episode 11 beats, 04/27 10:55:48. *There were 221,618 SVE beats with a burden of 14 %. There were 3,990 occurrences of Supraventricular Tachycardia with the Fastest episode 253 bpm, 05/07 11:48:32, and the Longest episode 9m 57.8s, 04/26 04:27:10. *There were 0 Patient Triggers. CONCLUSIONS: 1. *The predominant rhythm was sinus with Frequent Supraventricular Ectopy. *The Maximum Heart Rate recorded was 253 bpm, 05/07 11:48:36, the Minimum Heart Rate recorded was 48 bpm, 05/09 04:32:31, and the Average Heart Rate was 79 bpm. *There were 1,350 VE beats with a burden of <1 %. There was 1 occurrence of Ventricular Tachycardia with the Fastest episode 170 bpm, 04/27 10:55:48, and the Longest episode 11 beats, 04/27 10:55:48. *There were 221,618 SVE beats with a burden of 14 %. There were 3,990 occurrences of Supraventricular Tachycardia with the Fastest episode 253 bpm, 05/07 11:48:32, and the Longest episode 9m 57.8s, 04/26 04:27:10. *There were 0 Patient Triggers. 2. Agree with findings from [employer] document. 3. The PDF report can be found in the [facility] patient chart. Electronically Signed By: Kenny Stern Jr., M.D. 05/23/2024 6:10:09 PM CREDIT DIRECTOR Electronically Signed By: Kenny Stern Jr., M.D. 05/23/2024 6:10:09 PM CREDIT DIRECTOR Procedure Note Kenny Stern MD PhD - 05/23/2024 [facility] [place] [address] HOLTER MONITOR Patient Name: NADEEM AMAYA W : 1945 (78y 5m) Gender: M Study Date: 04/25/2024 12:44:17 PM Ht(Inch): Wt(Lb): BSA: Tech: Location: [facility] Order Provider: ALBERTO MOFFETT BMI: Ref Provider: ALBERTO MOFFETT PROCEDURES: Holter Report: EXTENDED/GROUP HOME HOLTER PATCH (8 DAYS UP TO 15 DAYS)[CAR80]. Enrollment Period: 04/25/2024-05/09/2024. Monitor Number: [id number]. Patient Instructions: Patient picked up device from office and understanddirections and use of the equipment. Location: [facility]. INDICATIONS: I47.10 Supraventricular tachycardia, unspecified. FINDINGS: Holter Data: Min Rate: 48 BPM Min Rate Timestamp: 2024-05-09 04:32:31 Max Rate: 253 BPM Max Rate Timestamp: 2024-05-07 11:48:36 Mean Rate: 79 BPM Singlets (PACs): 596958 events Couplets (PACs): 57970 events Total (SVE): 803947 events Singlets (PVCs): 1335 events Couplets (PVCs): 2 events Total (VE): 1350 events Total beats: 7677665 Protocol: Recording Duration (Actual): 3527652.12 Total QRS: 6648274 SUMMARY: *The predominant rhythm was sinus with Frequent SupraventricularEctopy. *The Maximum Heart Rate recorded was 253 bpm, 05/07 11:48:36, the MinimumHeart Rate recorded was 48 bpm, 05/09 04:32:31, and the Average Heart Rate was 79 bpm. *There were 1,350 VE beats with a burden of <1 %. There was 1 occurrenceof Ventricular Tachycardia with the Fastest episode 170 bpm, 04/27 10:55:48, and the Longest [id number] beats, 04/27 10:55:48. *There were 221,618 SVE beats with a burden of 14 %. There were 3,990occurrences of Supraventricular Tachycardia with the Fastest episode 253 bpm, 04/2810:48:32, and the Longest episode 9m 57.8s, 04/26 04:27:10. *There were 0 Patient Triggers. CONCLUSIONS: 1. *The predominant rhythm was sinus with Frequent SupraventricularEctopy. *The Maximum Heart Rate recorded was 253 bpm, 05/07 11:48:36, the MinimumHeart Rate recorded was 48 bpm, 05/09 04:32:31, and the Average Heart Rate was 79 bpm. *There were 1,350 VE beats with a burden of <1 %. There was 1 occurrenceof Ventricular Tachycardia with the Fastest episode 170 bpm, 04/27 10:55:48, and the Longest oxyixjj73 beats, 04/27 10:55:48. *There were 221,618 SVE beats with a burden of 14 %. There were 3,990occurrences of Supraventricular Tachycardia with the Fastest episode 253 bpm, 04/2810:48:32, and the Longest episode 9m 57.8s, 04/26 04:27:10. *There were 0 Patient Triggers. 2. Agree with findings from [employer] document. 3. The PDF report can be found in the [facility] patient chart. Electronically Signed By: Kenny Stern Jr., M.D. 05/23/2024 6:10:09 PM CREDIT DIRECTOR Electronically Signed By: Kenny Stern Jr., M.D. 05/23/2024 6:10:09 PM CREDIT DIRECTOR us Alberto Moffett MD [facility] CARDIAC SERVICES PRO CEDURES Final Result * ECG 12 lead (04/25/2024 11:28 AM CREDIT DIRECTOR) us Alberto Moffett MD ECG ORDERABLES Final R esult from Last 3 Months Insurance [address] [place] [id number] [employer] [facility] Address: [facility] [address] [place] [address] [address] [phone] [facility] MEDICARE [address] [place] [address] [facility] MEDICARE Care Teams Drill Doctor Relationship Specialty Start Date End Date Timothy Banks MD PCP - General 07/08/16
--- OUTSIDE RECORDS SUMMARY | 2024-05-27 11:40 | XMS_ITS | Encounter Summary ---
Author Organization [facility] Address [address] [place] [address] Phone Care Team Providers Care Shuttle Veneering Supervisor Name Role Phone Timothy Banks MD Primary Care Provider Encounter Details Date Type Department Care Team (Late st Contact Info) Description 01/25/2024 Telephone [facility] Cardiology [address] [facility] Advanced Medicine 8th [place] [address] [place] [address] Alberto Gallegos MD [address] [facility] [address] [place] [address] Social History Tobacco Use Types Packs/Day Years Used Date Smoking Tobacco: Never Smokeless Tobacco: Never Alcohol Use Standard Drinks/Week Comments Yes 0 (1 standard drink = 0.6 oz pur e alcohol) Sex and Gender Information Value Date Recorded Sex Assigned at Not on file Legal Sex Male 4: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
--- OUTSIDE RECORDS SUMMARY | 2024-05-27 11:40 | XMS_ITS | Encounter Summary ---
Author Organization [facility] Address [address] [facility] [place] [address] Care Team Providers Care Clutch Mechanic Name Role Phone Timothy Banks MD Primary Care Provider Cindy Garcia MD Unavailable Encounter Details Date Type Department Care Team (Late st Contact Info) Description 02/12/2024 Lab Requisition [facility] - Pathology Lab [address] [place] [address] Rommel Dinh MD [address] [facility] [address] [place] [phone] Decreased white blood cell count, unspecified Social History Tobacco Use Types Packs/Day Years Used Date Smoking Tobacco: Never Assessed Sex and Gender Information Value Date Recorded Sex Assigned at Male 03/05/2024 8:04 AM GRANTS ANALYST Gender Identity Male 03/05/2024 8:04 AM GRANTS ANALYST Sexual Orientation Straight 03/05/2024 8: 04 AM GRANTS ANALYST documented as of this encounter Plan of Treatment Upcoming Encounters Date Type Department Care Team (Late st Contact Info) Description 05/30/2024 11:00 AM GRANTS ANALYST Office Visit [facility] - Hematology/Oncology [address] [place] [phone] Cindy Garcia MD [address] [place], [place] [phone] 06/13/2024 9:00 AM GRANTS ANALYST Appointment [facility] [address] [place] [phone] 06/14/2024 9:00 AM GRANTS ANALYST Appointment [facility] [address] [place] [phone] 06/17/2024 9:20 AM CDT Appointment [facility] [address] [place] [phone] 06/18/2024 9:20 AM CDT Appointment [facility] [address] [place] [phone] 06/19/2024 9:00 AM CDT Appointment [facility] [address] [place] [phone] documented as of this encounter Procedures Procedure Name Priority Date/Time Associated Diagnosis Comments FLOW CYTOMETRY BONE MARROW Routine 02/12/2024 9:20 AM GRANTS ANALYST Decreased white blood cell count, unspecified documented in this encounter Results * FLOW CYTOMETRY BONE MARROW (02/12/2024 9:20 AM GRANTS ANALYST) Case Report Flow Cytometry Case: [id number] Authorizing Provider: Rommel Dinh Collected: 02/12/2024 09:20 AM MD Luke Ordering Location: [facility] - Received: 02/12/2024 12:12 PM Pathology Lab Pathologist: Daniela Bronson MD Specimen: Bone Marrow 02/12/2024 3:44 PM GRANTS ANALYST [facility] PATHOLOGY LAB Final Diagnosis Bone [...] cytometry specimen has been reviewed for quality liaison purposes. Review the bone marrow aspirate smears reveals 20% blasts with only rare promyelocytes identified. Carolyn rods are not seen. 02/12/2024 3:44 PM [facility] PATHOLOGY LAB Flow Cytometry Results Differential Result Comment Flow Cell Count /uL 20,700 Total Viability % 97.0 Lymphocytes % 12 Dim CD45 Region % 44 Monocytes % 1 Granulocytes % 42 02/12/2024 3:44 PM [facility] PATHOLOGY LAB Reason for test Decreased white [...] CD56 A-20 Flow CD64 A-28 cyCD22 A-29 atJM93k A-16 Renningers+CD19+ A-17 Lambda+CD19+ A-24 Flow HLA-DR A-25 Flow MPO A-26 Flow TdT A-27 cyCD3 02/12/2024 3:44 PM [facility] Pathologist Location at [facility] 02/12/2024 3:44 PM [facility] PATHOLOGY LAB Disclaimer Test performed at [facility], [address] [place], [place], [address]. *The established laboratory minimum viability is 70%. [...] MARROW SPECIMEN / Unknown 02/12/2024 9:20 AM GRANTS ANALYST 02/12/2024 12:12 PM GRANTS ANALYST Rommel Dinh MD LAB - PATHO LOGY/CYTOLOGY ORDERABLES [facility] PATHOLOGY LAB [address] [facility] [phone] documented in this encounter Visit Diagnoses Diagnosis Decreased white blood cell count, unspecified documented in this encounter Care Teams Clutch Mechanic Relationship Specialty Start Date End Date Timothy Banks MD [address] [place] [address] PCP - General 10/19/18 Cindy Garcia MD [address] [place] [address] Success Coach/Oncologis t Hematology and Oncology 03/24/24 documented as of this encounter
--- OUTSIDE RECORDS SUMMARY | 2024-05-27 11:40 | XMS_ITS | Clinical Summary ---
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) 05/21/2024 Orders Only [facility] Oncology and Hematology - [place] [address] [place] [address] Frank Singh MD 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) 05/20/2024 Orders Only [facility] Oncology and Hematology - [place] [address] [place] [address] Frank Singh MD 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) 05/14/2024 Orders Only [facility] Oncology and Hematology - [place] [address] [place] [id number] Frank Singh MD 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) 05/13/2024 Orders Only [facility] Oncology and Hematology [facility] [address] [place] [id number] Frank Singh MD 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) 05/07/2024 Orders Only [facility] Oncology and Hematology [facility] [address] [place] [id number] Frank Singh MD 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) 05/06/2024 Orders Only [facility] Oncology and Hematology [facility] [address] [place] [id number] Frank Singh MD 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) 05/03/2024 Abstract [facility] Oncology and Hematology [facility] [address] [place] [id number] Frank Singh MD 05/02/2024 External Device Data STL ABSTRACTION Provider, Abstract 05/01/2024 External Device Data ST[facility] ABSTRACTION Provider, Abstract 04/30/2024 External Device Data ST[facility] ABSTRACTION Provider, Abstract 04/30/2024 Orders Only [facility] Oncology and Hematology - [place] [address] [place] [address] Frank Singh MD 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) 04/29/2024 Orders Only [facility] Oncology and Hematology - [place] [address] [place] [id number] Frank Singh MD 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) 04/25/2024 Orders Only [facility] Oncology and Hematology - [place] [address] Frank Singh MD 04/23/2024 External Device Data STL ABSTRACTION Provider, Abstract 04/23/2024 Orders Only [facility] Oncology and Hematology - [place] [address] [place] [id number] Frank Singh MD 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) 04/22/2024 Orders Only [facility] Oncology and Hematology - [place] [address] [place] [phone] Frank Singh MD 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) 04/17/2024 Orders Only [facility] Oncology and Hematology - [place] [address] [place] [id number] Frank Singh MD 04/16/2024 Orders Only [facility] Oncology and Hematology - [place] [address] [place] [id number] Frank Singh MD 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) 04/15/2024 Orders Only [facility] Oncology and Hematology - [place] [address] [place] [id number] Frank Singh MD 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) 04/09/2024 Orders Only [facility] Oncology and Hematology - [place] [address] [place] [id number] Frank Singh MD 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) 04/08/2024 Orders Only [facility] Oncology and Hematology - [place] [address] [place] [phone] Frank Singh MD 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) 04/05/2024 Orders Only [facility] Oncology and Hematology - [place] [address] [place] [address] Frank Singh MD 04/02/2024 Orders Only [facility] Oncology and Hematology - [place] [address] [place] [address] Frank Singh MD 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) 04/01/2024 Orders Only [facility] Oncology and Hematology - [place] [address] [place] [address] Frank Singh MD 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) 03/28/2024 Orders Only [facility] Oncology and Hematology - [place] [address] [place] [address] Frank Singh MD 03/28/2024 Nurse Triage [facility] Oncology and Hematology - [place] [address] [place] [address] Frank Singh MD 03/26/2024 Orders Only [facility] Oncology and Hematology - [place] [address] [place] [address] Frank Singh MD 03/25/2024 Telephone [facility] Oncology and Hematology - [place] [address] [place] [address] Frank Singh MD Lab Results 03/25/2024 Orders Only [facility] Oncology and Hematology - [place] [address] [place] [address] Frank Singh MD 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) 03/22/2024 Telephone [facility] Oncology and Hematology - [place] [address] [place] [address] Frank Singh MD Chemotherapy 03/22/2024 Telephone [facility] Oncology and Hematology - [place] [address] [place] [address] Frank Singh MD error 02/26/2024 4:30 PM SPANISH SPEAKING BABYSITTER Telephone Check Up [facility] Oncology and Hematology - [place] [address] [place] [address] Frank Singh MD Chronic anemia (Primary Dx) from Last 3 Months Family History Medical [...] Sex Assigned at Male 04/05/2024 3:07 PM SPANISH SPEAKING BABYSITTER Legal Sex Male 10:53 AM CDT Gender Identity Male 04/05/2024 3:07 PM SPANISH SPEAKING BABYSITTER Sexual Orientation Not on file Last Filed Vital Signs Vital Sign Reading Time Taken Comments Blood Pressure 121/79 02/01/2024 1:39 PM CDT Pulse 69 02/01/2024 1:39 PM CDT Temperature 36.6 C (97.8 F) 02/01/2024 1:39 PM CDT Respiratory Rate 15 02/01/2024 1:39 PM CDT [...] 01/09/2020, 01/04/2020, Additional history exists COVID-19 Vaccine ( - 2023-2 5 season) 2023 04/14/2021 [place] Preventative Visit/Annual Wellness Visit 04/10/2024 DTAP/TDAP/TD VACCINES (2 - T d or Tdap) 09/17/2028 09/17/2018 PNEUMOCOCCAL VACCINE 65+ YEARS Completed 09/17/2018 , 08/27/2015 Procedures Procedure Name Priority Date/Time Associated Diagnosis Comments BASIC METABOLIC PANEL Routine 05/06/2024 12:55 PM SPANISH SPEAKING BABYSITTER BASIC METABOLIC PANEL Routine 05/02/2024 1:34 PM SPANISH SPEAKING BABYSITTER BASIC METABOLIC PANEL Routine 04/29/2024 4:14 PM SPANISH SPEAKING BABYSITTER BASIC METABOLIC PANEL Routine 04/25/2024 4:21 PM SPANISH SPEAKING BABYSITTER BASIC METABOLIC PANEL Routine 04/08/2024 1:56 PM SPANISH SPEAKING BABYSITTER BASIC METABOLIC PANEL Routine 04/04/2024 3:39 PM SPANISH SPEAKING BABYSITTER CBC WITH DIFFERENTIAL Routine 04/04/2024 1:55 PM SPANISH SPEAKING BABYSITTER BASIC METABOLIC PANEL Routine 04/01/2024 10:11 AM SPANISH SPEAKING BABYSITTER CBC MIXED CELL DIFFERENTIAL Routine 04/01/2024 9:00 AM SPANISH SPEAKING BABYSITTER BASIC METABOLIC PANEL Routine 03/28/2024 1:31 PM SPANISH SPEAKING BABYSITTER CBC WITH DIFFERENTIAL Routine 03/28/2024 1:23 PM SPANISH SPEAKING BABYSITTER BASIC METABOLIC PANEL Routine 03/25/2024 1:24 PM SPANISH SPEAKING BABYSITTER CBC WITH DIFFERENTIAL Routine 03/25/2024 1:23 PM SPANISH SPEAKING BABYSITTER CBC WITH DIFFERENTIAL Routine 03/25/2024 10:28 AM SPANISH SPEAKING BABYSITTER from Last 3 Months Results * BASIC METABOLIC PANEL (05/06/2024 12:55 PM SPANISH SPEAKING BABYSITTER) Only the most recent of9 resultswithin the time period is included. Blood us Frank Singh MD CHEMISTRY ORDERABLES Final Resu lt * CBC WITH DIFFERENTIAL (04/04/2024 1:55 PM SPANISH SPEAKING BABYSITTER) Only the most recent of4 resultswithin the time period is included. Blood us Frank Singh MD HEMATOLOGY ORDERABLES Final Res ult * CBC MIXED CELL DIFFERENTIAL (04/01/2024 9:00 AM SPANISH SPEAKING BABYSITTER) Blood Frank Singh MD HEMATOLOGY ORDERABLES Final Res ult from Last 3 Months Insurance TNA [id number] [facility] MCR Care Teams Logistics Associate Relationship Specialty Start Date End Date Timothy Banks MD [address] [place] [address] PCP - General Family Practice 02/01/24
--- OUTSIDE RECORDS SUMMARY | 2024-05-27 11:40 | XMS_ITS | Encounter Summary ---
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) Social History Tobacco Use Types Packs/Day Years Used Date Smoking Tobacco: Never Smokeless Tobacco: Never Alcohol Use Standard Drinks/Week Comments Yes 0 (1 standard drink = 0.6 oz pur e alcohol) Very Ocasionally Sex and Gender Information Value Date Recorded Sex Assigned at Male 04/05/2024 3:07 PM EQUIPMENT VALIDATION SPECIALIST Legal Sex Male 10:53 AM CDT Gender Identity Male 04/05/2024 3:07 PM EQUIPMENT VALIDATION SPECIALIST Sexual Orientation Not on file documented as of this encounter Plan of Treatment Not on file documented as of this encounter Visit Diagnoses Diagnosis 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 [address] PCP - General Family Practice 02/01/24 documented as of this encounter
--- OUTSIDE RECORDS SUMMARY | 2024-05-27 11:40 | XMS_ITS | Referral Summary ---
Author Organization [facility] Address [address] [place] [address] Care Team Providers Care Candy Waffle Assembler Name Role Phone Timothy Banks MD Primary Care Provider [phone] Cindy Garcia MD Unavailable Source Comments [facility],non-owned Affiliates and Associated Physician Practices is amultiple site organization consisting of ambulatory clinics and hospital sitesin [place], [place], [place] and [place]. This disclosure is being madepursuant to the Care Everywhere program and may not contain all information available regarding this patient. Last updated 17.[facility] Encounters Date Type Department Care Team Description 05/22/2024 Travel 05/22/2024 8:40 AM COLLECTION TELLER - 05/22/2024 11:59 PM COLLECTION TELLER Hospital Encounter [facility] [address] [place] [address] [phone] Timothy Banks MD Discharge Disposition: Home or Self Care 05/21/2024 9:00 AM COLLECTION TELLER - 05/21/2024 11:59 PM COLLECTION TELLER Hospital Encounter [facility] [address] [place] [address] [phone] Timothy Banks MD Discharge Disposition: Home or Self Care 05/20/2024 Travel 05/20/2024 9:30 AM COLLECTION TELLER - 05/20/2024 11:59 PM COLLECTION TELLER Hospital Encounter [facility] [address] [place] [address] [phone] Cindy Garcia MD Discharge Disposition: Home or Self Care 05/17/2024 8:58 AM COLLECTION TELLER - 05/17/2024 11:59 PM COLLECTION TELLER Hospital Encounter [facility] [address] [place] [address] [phone] Cindy Garcia MD Discharge Disposition: Home or Self Care 05/16/2024 Telephone [facility] - Hematology/Oncolog y [address] [place] [address] [phone] Stephanie Connolly APRN-CNP Follow-up (Error/) 05/16/2024 Travel 05/16/2024 9:40 AM COLLECTION TELLER Office Visit [facility] - Hematology/Oncolog y [address] [place] [address] [phone] Stephanie Connolly APRN-CNP Acute myeloid leuk w multilin dysplasia, 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); Chronic kidney disease, unspecified CKD stage; Neutropenia, unspecified type (HCC) 05/16/2024 8:49 AM COLLECTION TELLER - 05/16/2024 11:59 PM COLLECTION TELLER Hospital Encounter [facility] [address] [place] [address] [phone] Cindy Garcia MD Discharge Disposition: Home or Self Care 05/15/2024 Travel 05/15/2024 12:32 PM COLLECTION TELLER - 05/15/2024 11:59 PM COLLECTION TELLER Hospital Encounter [facility] [address] [place] [phone] Cindy Garcia MD Kunkle, Kelly, APRN-COMPENSATOR WORKER Discharge Disposition: Home or Self Care 05/13/2024 Refill [facility] - Hematology/Oncolog y [address] [place] [phone] Cindy Garcia MD MEDICATION REFILL 05/02/2024 1:30 PM COLLECTION TELLER Video 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) 04/22/2024 Travel 04/22/2024 12:45 PM COLLECTION TELLER - 04/22/2024 11:59 PM COLLECTION TELLER Hospital Encounter [facility] [address] [place] [address] Cindy Garcia MD Discharge Disposition: Home or Self Care 04/22/2024 Refill [facility] - Hematology/Oncolog y [address] [place] [address] Cindy Garcia MD Refill Request 04/22/2024 Orders Only [facility] - Hematology/Oncolog y [address] [place] [phone] Tg Amezcua, RN 04/22/2024 Orders Only [facility] - Hematology/Oncolog y [address] [place] [address] Tg Amezcua, RN 04/22/2024 Telephone [facility] - Hematology/Oncolog y [address] [place] [address] Nikole Chou, RN Appointment 04/22/2024 9:38 AM COLLECTION TELLER - 04/22/2024 12:44 PM COLLECTION TELLER Hospital Encounter [facility] [address] [place] [phone] Unknown, Provider Discharge Disposition: Home or Self Care 04/19/2024 Travel 04/19/2024 9:58 AM COLLECTION TELLER - 04/19/2024 11:59 PM COLLECTION TELLER Hospital Encounter [facility] [address] [place] [address] [id number] Unknown, Provider Discharge Disposition: Home or Self Care 04/18/2024 Travel 04/18/2024 10:30 AM COLLECTION TELLER Office Visit [facility] - Hematology/Oncolog y [address] [place] [address] Cindy Garcia MD 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) 04/18/2024 9:32 AM COLLECTION TELLER - 04/18/2024 11:59 PM COLLECTION TELLER Hospital Encounter [facility] [address] [place] [address] [phone] Unknown, Provider Discharge Disposition: Home or Self Care 04/17/2024 10:32 AM COLLECTION TELLER - 04/17/2024 11:59 PM COLLECTION TELLER Hospital Encounter [facility] [address] [place] [address] [phone] Timothy Banks MD Discharge Disposition: Home or Self Care 04/16/2024 10:00 AM COLLECTION TELLER - 04/16/2024 11:59 PM COLLECTION TELLER Hospital Encounter [facility] [address] [place] [address] [phone] Unknown, Provider Discharge Disposition: Home or Self Care 04/15/2024 Orders Only [facility] [address] [place] [address] [phone] Cindy Garcia MD 04/11/2024 5:49 AM COLLECTION TELLER - 04/11/2024 11:05 AM COLLECTION TELLER Hospital Encounter [facility] [address] [place] [address] Cindy Garcia MD [facility] Radiology Discharge Disposition: Home or Self Care 04/10/2024 Orders Only [facility] [address] [place] [address] [phone] Cindy Garcia MD Chronic kidney disease, unspecified CKD stage 04/05/2024 Orders Only [facility] [address] [place] [address] [phone] Cindy Garcia MD 04/04/2024 Telephone [facility] - Hematology/Oncolog y [address] [place] [address] [phone] Cindy Garcia MD Medication Prior Auth Request 04/01/2024 Orders Only [facility] [address] [place] [address] [phone] Cindy Garcia MD Tumor lysis syndrome (HCC) 04/01/2024 Travel 04/01/2024 3:09 PM COLLECTION TELLER - 04/01/2024 11:59 PM COLLECTION TELLER Hospital Encounter [facility] [address] [facility] [place] [address] Discharge Disposition: Home or Self Care 04/01/2024 Orders Only [facility] [address] [place] [address] Cindy Garcia MD Acute myeloid leukemia 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) 04/01/2024 2:00 PM COLLECTION TELLER Office Visit [facility] - Hematology/Oncolog y [address] [place] [phone] Cindy Garcia MD 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) 03/25/2024 Orders Only [facility] [address] [place] [address] [phone] Ekta Ferro, ANITA-COMPENSATOR WORKER 03/25/2024 Orders Only [facility] - Hematology/Oncolog y [address] [place] [phone] Cindy Garcia MD Acute myeloid leuk w multilin dysplasia, 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) 03/25/2024 Telephone Transitional Care at [facility] [address] [place] [phone] Adamaris Jesus RNmanager mall 03/13/2024 7:14 PM COLLECTION TELLER - 03/23/2024 1:56 PM COLLECTION TELLER Hospital Encounter [facility] ACUTE [address] [place] [address] Cindy Garcia MD Kumar, Ashwath, MD Schrader, Kevin Michael, MD Masud, Josh Chavez MD Internal Medicine Discharge Disposition: Home or Self Care 03/14/2024 [facility] [address] [place] [phone] Cindy Garcia MD Medication Monitoring (VENCLEXTA 100 MG TABLET/) 03/14/2024 Telephone [facility] - Hematology/Oncolog y [address] [place] [phone] Cindy Garcia MD Medication Prior Auth Request 03/14/2024 Telephone [facility] - Hematology/Oncolog y [address] [place] [phone] Cindy Garcia MD Medication Prior Auth Request 03/14/2024 Telephone [facility] - Hematology/Oncolog y [address] [place] [phone] Cindy Garcia MD Medication Prior Auth Request 03/13/2024 Travel 03/13/2024 Telephone [facility] [address] [place] [address] [phone] Cindy Garcia MD Medication Prior Auth Request 03/13/2024 Orders Only [facility] [address] [place] [address] Sammie Hartman, PharmD 03/13/2024 Orders Only [facility] [address] [place] [address] [phone] Cindy Garcia MD 03/04/2024 Travel 03/04/2024 3:35 PM COLLECTION TELLER - 03/04/2024 11:59 PM COLLECTION TELLER Hospital Encounter [facility] [address] [place] [address], [address] [place] [address] Discharge Disposition: Home or Self Care 03/04/2024 Orders Only [facility] [address] [place] [address] [phone] Cindy Garcia MD MDS (myelodysplastic syndrome) (HCC) 03/04/2024 2:00 PM COLLECTION TELLER Office Visit [facility] - Hematology/Oncolog y [address] [place] [phone] Cindy Garcia MD MDS (myelodysplastic syndrome) (HCC) (Primary Dx) 03/01/2024 Orders Only [facility] [address] [place] [address] [phone] Cindy Garcia MD Neutropenia, unspecified type (HCC) 03/01/2024 Telephone [facility] - Hematology/Oncolog y [address] [place] [address] [phone] Cindy Mansfield MA Appointment (Patient has comfirmed) from Last 3 Months Allergies Active Allergy [...] Additional Information Patient not taking.Reported on 04/01/2024 levoFLOXacin (Levaquin) 500 MG tablet Take 1 [...] days 90 tablet 2 04/18/2024 5 Active allopurinol (Zyloprim) 300 MG tablet Take 1 (one) tablet by mouth once daily after breakfast 30 tablet 04/22/2024 Active venetoclax (Venclexta) 100 MG tabletIndication s:Acute Myelocytic Leukemia Take 1 (one) tablet by mouth daily with food Reasons: Acute Myelocytic Leukemia 21 tablet 11 05/13/2024 5 Active ferrous sulfate 325 (65 FE) MG tabletIndication s:Acute myeloid leuk w multilin dysplasia, 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) Take 1 (one) tablet by mouth every 2 days 30 tablet 05/16/2024 Active valACYclovir (Valtrex) 500 MG tabletIndication s:Acute myeloid leuk w multilin dysplasia, 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 Not hard at all 03/13/2024 [facility] [place] [facility] - Occupational Stress [...] Sex Assigned at Male 03/05/2024 8:04 AM COLLECTION TELLER Gender Identity Male 03/05/2024 8:04 AM COLLECTION TELLER Sexual Orientation Straight 03/05/2024 8: 04 AM COLLECTION TELLER Last Filed Vital Signs Vital Sign Reading Time Taken Comments Blood Pressure 145/94 05/22/2024 8:44 AM COLLECTION TELLER Pulse 70 05/22/2024 8:44 AM COLLECTION TELLER Temperature 36.5 C (97.7 F) 05/22/2024 8:44 AM COLLECTION TELLER Respiratory Rate 18 05/22/2024 8:44 AM COLLECTION TELLER Oxygen Saturation 100% 05/22/2024 8:44 AM COLLECTION TELLER Inhaled Oxygen Concentration - - Weight 96.2 kg (212 lb) 05/21/2024 9:20 AM COLLECTION TELLER Height 182.9 cm (6') 05/15/2024 12:50 PM COLLECTION TELLER Body Mass Index 28.75 05/15/2024 12:50 PM COLLECTION TELLER Functional Status Functional Status Response Date of [...] st Contact Info) Description 05/30/2024 11:00 AM COLLECTION TELLER Office Visit [facility] - Hematology/Oncology [address] [place] [phone] Cindy Garcia MD [address] [place] [phone] 06/13/2024 9:00 AM COLLECTION TELLER Appointment [facility] [address] [place] [address] [phone] 06/14/2024 9:00 AM COLLECTION TELLER Appointment [facility] [address] [place] [address] [phone] 06/17/2024 9:20 AM CDT Appointment [facility] [address] [place] [address] [phone] 06/18/2024 9:20 AM CDT Appointment [facility] [address] [place] [address] [phone] 06/19/2024 9:00 AM CDT Appointment [facility] [address] [place] [address] [phone] Medical Devices Implanted Type Area Physicist Solid Earth Device Identifier Shelf Expiration Date Model / Serial / Lot Port Implinfn Powerport Clrvu Argd Kandy Implanted:Qty : 1 on 04/11/2024 by Davian Marshall MD at [facility] Catheters Right: Chest Wall [employer] [id number] 02/07/2025 [id number] / / [id number] Procedures Procedure Name Priority Date/Time Associated Diagnosis Comments DIFFERENTIAL MANUAL Routine 05/20/2024 9 :42 AM COLLECTION TELLER Acute myeloid leuk w multilin dysplasia, 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) COMPREHENSIVE METABOLIC PANEL Routine 05/20/2024 9:42 AM COLLECTION TELLER Acute myeloid leuk w multilin dysplasia, 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) CBC W AUTO DIFFERENTIAL Routine 05/20/19 9:42 AM COLLECTION TELLER Acute myeloid leuk w multilin dysplasia, 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) DIFFERENTIAL MANUAL Routine 05/16/2024 9 :03 AM COLLECTION TELLER Acute myeloid leuk w multilin dysplasia, 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) COMPREHENSIVE METABOLIC PANEL Routine 05/16/2024 9:03 AM COLLECTION TELLER Acute myeloid leuk w multilin dysplasia, 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) CBC W AUTO DIFFERENTIAL Routine 05/16/19 9:03 AM COLLECTION TELLER Acute myeloid leuk w multilin dysplasia, 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) CHROMOSOME ANALYSIS BONE MARROW PANEL Routine 05/15/2024 1:35 PM COLLECTION TELLER Acute myeloid leuk w multilin dysplasia, 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) MDS (myelodysplastic syndrome) (HCC) FLOW CYTOMETRY BONE MARROW Routine 05/15/2024 1:35 PM COLLECTION TELLER Acute myeloid leuk w multilin dysplasia, 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) MDS (myelodysplastic syndrome) (HCC) BONE MARROW BIOPSY (STL) Routine 05/15/2024 1:35 PM COLLECTION TELLER Acute myeloid leuk w multilin dysplasia, 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) MDS (myelodysplastic syndrome) (HCC) LAB MISC TEST (NOT BLOOD) Routine 05/15/2024 1:35 PM COLLECTION TELLER Acute myeloid leuk w multilin dysplasia, 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) MDS (myelodysplastic syndrome) (HCC) LAB MISC TEST (NOT BLOOD) Routine 05/15/2024 1:35 PM COLLECTION TELLER Acute myeloid leuk w multilin dysplasia, 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) MDS (myelodysplastic syndrome) (HCC) DIFFERENTIAL MANUAL Routine 05/15/2024 1 :01 PM COLLECTION TELLER Acute myeloid leuk w multilin dysplasia, 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) MDS (myelodysplastic syndrome) (HCC) CBC W AUTO DIFFERENTIAL Routine 05/15/19 25 1:01 PM COLLECTION TELLER Acute myeloid leuk w multilin dysplasia, 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) MDS (myelodysplastic syndrome) (HCC) EKG 12-LEAD Routine 04/22/2024 1:27 PM COLLECTION TELLER Acute myeloid leukemia 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) DIFFERENTIAL MANUAL Routine 04/22/2024 1 0:11 AM COLLECTION TELLER Acute myeloid leuk w multilin dysplasia, 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) COMPREHENSIVE METABOLIC PANEL Routine 04/22/2024 10:11 AM COLLECTION TELLER Acute myeloid leuk w multilin dysplasia, 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) CBC W AUTO DIFFERENTIAL Routine 04/22/19 25 10:11 AM COLLECTION TELLER Acute myeloid leuk w multilin dysplasia, 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) COMPREHENSIVE METABOLIC PANEL Routine 04/18/2024 9:48 AM COLLECTION TELLER Acute myeloid leuk w multilin dysplasia, 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) CBC W AUTO DIFFERENTIAL Routine 04/18/19 25 9:48 AM COLLECTION TELLER Acute myeloid leuk w multilin dysplasia, 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) QUANTIFERON-TB GOLD PLUS 4-TUBE Routine 04/16/2024 1:43 PM COLLECTION TELLER LDH BLOOD Routine 04/16/2024 10:26 AM COLLECTION TELLER Tumor lysis syndrome (HCC) COMPREHENSIVE METABOLIC PANEL Routine 04/16/2024 10:26 AM COLLECTION TELLER Acute myeloid leuk w multilin dysplasia, 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) CBC W AUTO DIFFERENTIAL Routine 04/16/19 10:26 AM COLLECTION TELLER Acute myeloid leuk w multilin dysplasia, 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) COMPREHENSIVE METABOLIC PANEL Routine 04/11/2024 10:54 AM COLLECTION TELLER Acute myeloid leuk w multilin dysplasia, 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) CBC W AUTO DIFFERENTIAL Routine 04/11/19 10:54 AM COLLECTION TELLER Acute myeloid leuk w multilin dysplasia, 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) IR TIM CATH INSERT Routine 04/11/2024 9:45 AM COLLECTION TELLER Acute myeloid leukemia 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) PT-INR [facility] STAT 04/11/2024 7:20 AM COLLECTION TELLER Acute myeloid leukemia 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) MDS (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, 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) PHOSPHORUS BLOOD Routine 04/01/2024 3:12 PM COLLECTION TELLER Tumor lysis syndrome (HCC) URIC ACID BLOOD Routine 04/01/2024 3:12 PM COLLECTION TELLER Tumor lysis syndrome (HCC) DIFFERENTIAL MANUAL Routine 04/01/2024 3 :12 PM COLLECTION TELLER Acute myeloid leukemia 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) MAGNESIUM BLOOD Routine 04/01/2024 3:12 PM COLLECTION TELLER Acute myeloid leukemia 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) ERYTHROPOIETIN Routine 04/01/2024 3:12 PM COLLECTION TELLER Acute myeloid leukemia 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) SOLUBLE TRANSFERRIN RECEPTOR Routine 04/01/2024 3:12 PM COLLECTION TELLER Acute myeloid leukemia 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) COMPREHENSIVE METABOLIC PANEL Routine 04/01/2024 3:12 PM COLLECTION TELLER Acute myeloid leukemia 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) CBC W AUTO DIFFERENTIAL Routine 04/01/20 3:12 PM COLLECTION TELLER Acute myeloid leukemia 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) LAB RESULTS ORDER 03/25/2024 DIFFERENTIAL MANUAL AM Draw 03/23/2024 1 2:25 AM COLLECTION TELLER MAGNESIUM BLOOD Routine 03/23/2024 12:25 AM COLLECTION TELLER URIC ACID BLOOD Routine 03/23/2024 12:25 AM COLLECTION TELLER PHOSPHORUS BLOOD Routine 03/23/2024 12:2 5 AM COLLECTION TELLER COMPREHENSIVE METABOLIC PANEL Routine 03/23/2024 12:25 AM COLLECTION TELLER LDH BLOOD Routine 03/23/2024 12:25 AM COLLECTION TELLER PTT [facility] AM Draw 03/23/2024 12:25 AM COLLECTION TELLER PT-INR [facility] AM Draw 03/23/2024 12:25 AM COLLECTION TELLER CBC W AUTO DIFFERENTIAL AM Draw 03/23/20 12:25 AM COLLECTION TELLER MAGNESIUM BLOOD Routine 03/22/2024 6:20 PM COLLECTION TELLER URIC ACID BLOOD Routine 03/22/2024 6:20 PM COLLECTION TELLER PHOSPHORUS BLOOD Routine 03/22/2024 6:20 PM COLLECTION TELLER COMPREHENSIVE METABOLIC PANEL Routine 03/22/2024 6:20 PM COLLECTION TELLER LDH BLOOD Routine 03/22/2024 6:20 PM COLLECTION TELLER DIFFERENTIAL MANUAL AM Draw 03/22/2024 6 :58 AM COLLECTION TELLER MAGNESIUM BLOOD Routine 03/22/2024 6:58 AM COLLECTION TELLER URIC ACID BLOOD Routine 03/22/2024 6:58 AM COLLECTION TELLER PHOSPHORUS BLOOD Routine 03/22/2024 6:58 AM COLLECTION TELLER COMPREHENSIVE METABOLIC PANEL Routine 03/22/2024 6:58 AM COLLECTION TELLER LDH BLOOD Routine 03/22/2024 6:58 AM COLLECTION TELLER PTT [facility] AM Draw 03/22/2024 6:58 AM COLLECTION TELLER PT-INR [facility] AM Draw 03/22/2024 6:58 AM COLLECTION TELLER CBC W AUTO DIFFERENTIAL AM Draw 03/22/20 6:58 AM COLLECTION TELLER MAGNESIUM BLOOD Routine 03/21/2024 3:47 AM COLLECTION TELLER URIC ACID BLOOD Routine 03/21/2024 3:47 AM COLLECTION TELLER PHOSPHORUS BLOOD Routine 03/21/2024 3:47 AM COLLECTION TELLER COMPREHENSIVE METABOLIC PANEL Routine 03/21/2024 3:47 AM COLLECTION TELLER LDH BLOOD Routine 03/21/2024 3:47 AM COLLECTION TELLER PTT [facility] AM Draw 03/21/2024 3:47 AM COLLECTION TELLER PT-INR [facility] AM Draw 03/21/2024 3:47 AM COLLECTION TELLER CBC W AUTO DIFFERENTIAL AM Draw 03/21/20 24 3:47 AM COLLECTION TELLER MAGNESIUM BLOOD Routine 03/20/2024 4:07 PM COLLECTION TELLER URIC ACID BLOOD Routine 03/20/2024 4:07 PM COLLECTION TELLER PHOSPHORUS BLOOD Routine 03/20/2024 4:07 PM COLLECTION TELLER COMPREHENSIVE METABOLIC PANEL Routine 03/20/2024 4:07 PM COLLECTION TELLER LDH BLOOD Routine 03/20/2024 4:07 PM COLLECTION TELLER DIFFERENTIAL MANUAL AM Draw 03/20/2024 6 :28 AM COLLECTION TELLER LDH BLOOD Routine 03/20/2024 6:28 AM COLLECTION TELLER PTT [facility] AM Draw 03/20/2024 6:28 AM COLLECTION TELLER PT-INR [facility] AM Draw 03/20/2024 6:28 AM COLLECTION TELLER URIC ACID BLOOD Routine 03/20/2024 6:28 AM COLLECTION TELLER PHOSPHORUS BLOOD Routine 03/20/2024 6:28 AM COLLECTION TELLER MAGNESIUM BLOOD Routine 03/20/2024 6:28 AM COLLECTION TELLER COMPREHENSIVE METABOLIC PANEL AM Draw 03/20/2024 6:28 AM COLLECTION TELLER CBC W AUTO DIFFERENTIAL AM Draw 03/20/20 6:28 AM COLLECTION TELLER DIFFERENTIAL MANUAL AM Draw 03/19/2024 6 :23 AM COLLECTION TELLER LDH BLOOD Routine 03/19/2024 6:23 AM COLLECTION TELLER PTT [facility] AM Draw 03/19/2024 6:23 AM COLLECTION TELLER PT-INR [facility] AM Draw 03/19/2024 6:23 AM COLLECTION TELLER URIC ACID BLOOD Routine 03/19/2024 6:23 AM COLLECTION TELLER PHOSPHORUS BLOOD Routine 03/19/2024 6:23 AM COLLECTION TELLER MAGNESIUM BLOOD Routine 03/19/2024 6:23 AM COLLECTION TELLER COMPREHENSIVE METABOLIC PANEL AM Draw 03/19/2024 6:23 AM COLLECTION TELLER CBC W AUTO DIFFERENTIAL AM Draw 03/19/20 24 6:23 AM COLLECTION TELLER EKG 12-LEAD Routine 03/18/2024 1:48 PM COLLECTION TELLER Inverted T wave PATHOLOGY PERIPHERAL SMEAR REVIEW AM Draw 03/18/2024 8:33 AM COLLECTION TELLER DIFFERENTIAL MANUAL AM Draw 03/18/2024 8 :33 AM COLLECTION TELLER LDH BLOOD Routine 03/18/2024 8:33 AM COLLECTION TELLER PTT [facility] AM Draw 03/18/2024 8:33 AM COLLECTION TELLER PT-INR [facility] AM Draw 03/18/2024 8:33 AM COLLECTION TELLER URIC ACID BLOOD Routine 03/18/2024 8:33 AM COLLECTION TELLER PHOSPHORUS BLOOD Routine 03/18/2024 8:33 AM COLLECTION TELLER MAGNESIUM BLOOD Routine 03/18/2024 8:33 AM COLLECTION TELLER COMPREHENSIVE METABOLIC PANEL AM Draw 03/18/2024 8:33 AM COLLECTION TELLER CBC W AUTO DIFFERENTIAL AM Draw 03/18/20 24 8:33 AM COLLECTION TELLER DIFFERENTIAL MANUAL AM Draw 03/17/2024 5 :28 AM COLLECTION TELLER LDH BLOOD Routine 03/17/2024 5:28 AM COLLECTION TELLER PTT [facility] AM Draw 03/17/2024 5:28 AM COLLECTION TELLER PT-INR [facility] AM Draw 03/17/2024 5:28 AM COLLECTION TELLER URIC ACID BLOOD Routine 03/17/2024 5:28 AM COLLECTION TELLER PHOSPHORUS BLOOD Routine 03/17/2024 5:28 AM COLLECTION TELLER MAGNESIUM BLOOD Routine 03/17/2024 5:28 AM COLLECTION TELLER COMPREHENSIVE METABOLIC PANEL AM Draw 03/17/2024 5:28 AM COLLECTION TELLER CBC W AUTO DIFFERENTIAL AM Draw 03/17/20 24 5:28 AM COLLECTION TELLER DIFFERENTIAL MANUAL AM Draw 03/16/2024 1 2:04 AM COLLECTION TELLER LDH BLOOD Routine 03/16/2024 12:04 AM COLLECTION TELLER PTT [facility] AM Draw 03/16/2024 12:04 AM COLLECTION TELLER PT-INR [facility] AM Draw 03/16/2024 12:04 AM COLLECTION TELLER URIC ACID BLOOD Routine 03/16/2024 12:04 AM COLLECTION TELLER PHOSPHORUS BLOOD Routine 03/16/2024 12:0 4 AM COLLECTION TELLER MAGNESIUM BLOOD Routine 03/16/2024 12:04 AM COLLECTION TELLER COMPREHENSIVE METABOLIC PANEL AM Draw 03/16/2024 12:04 AM COLLECTION TELLER CBC W AUTO DIFFERENTIAL AM Draw 03/16/20 24 12:04 AM COLLECTION TELLER ECHO COMPLETE W CONTRAST Routine 03/15/2024 1:47 PM COLLECTION TELLER MDS (myelodysplastic syndrome) (HCC) MYELOID MALIGNANCIES MUTATION PNL Routine 03/15/2024 9:05 AM COLLECTION TELLER MDS (myelodysplastic syndrome) (HCC) FISH MDS PANEL BLOOD OR BONE MARROW Routine 03/15/2024 9:05 AM COLLECTION TELLER MDS (myelodysplastic syndrome) (HCC) FISH AML PANEL BLOOD OR BM RFLX PML/DANTE Routine 03/15/2024 9:05 AM COLLECTION TELLER MDS (myelodysplastic syndrome) (HCC) FLOW CYTOMETRY BONE MARROW Routine 03/15/2024 9:05 AM COLLECTION TELLER MDS (myelodysplastic syndrome) (HCC) BONE MARROW BIOPSY (STL) Routine 03/15/2024 9:05 AM COLLECTION TELLER MDS (myelodysplastic syndrome) (HCC) FISH PML/DANTE PANEL Routine 03/15/2024 9 :05 AM COLLECTION TELLER MDS (myelodysplastic syndrome) (HCC) CHROMOSOME ANALYSIS BONE MARROW PANEL Routine 03/15/2024 9:05 AM COLLECTION TELLER MDS (myelodysplastic syndrome) (HCC) LAB MISC TEST (NOT BLOOD) Routine 03/15/2024 9:05 AM COLLECTION TELLER LAB MISC TEST (NOT BLOOD) Routine 03/15/2024 9:05 AM COLLECTION TELLER LAB MISC TEST (NOT BLOOD) Routine 03/15/2024 9:05 AM COLLECTION TELLER DIFFERENTIAL MANUAL AM Draw 03/15/2024 7 :53 AM COLLECTION TELLER LDH BLOOD Routine 03/15/2024 7:53 AM COLLECTION TELLER PTT [facility]H AM Draw 03/15/2024 7:53 AM COLLECTION TELLER PT-INR [facility] AM Draw 03/15/2024 7:53 AM COLLECTION TELLER URIC ACID BLOOD Routine 03/15/2024 7:53 AM COLLECTION TELLER PHOSPHORUS BLOOD Routine 03/15/2024 7:53 AM COLLECTION TELLER MAGNESIUM BLOOD Routine 03/15/2024 7:53 AM COLLECTION TELLER COMPREHENSIVE METABOLIC PANEL AM Draw 03/15/2024 7:53 AM COLLECTION TELLER CBC W AUTO DIFFERENTIAL AM Draw 03/15/20 7:53 AM COLLECTION TELLER EKG 12-LEAD STAT 03/14/2024 12:30 PM COLLECTION TELLER MDS (myelodysplastic syndrome) (HCC) FLOW CYTOMETRY BLOOD PROFILE Routine 03/14/2024 10:32 AM COLLECTION TELLER MDS (myelodysplastic syndrome) (HCC) DIFFERENTIAL MANUAL STAT 03/13/2024 1 1:26 PM COLLECTION TELLER LDH BLOOD Routine 03/13/2024 11:26 PM COLLECTION TELLER PTT SLH Routine 03/13/2024 11:26 PM COLLECTION TELLER PT-INR SLH Routine 03/13/2024 11:26 PM COLLECTION TELLER FIBRINOGEN ACTIVITY Routine 03/13/2024 1 1:26 PM COLLECTION TELLER D-DIMER Routine 03/13/2024 11:26 PM COLLECTION TELLER URIC ACID BLOOD Routine 03/13/2024 11:26 PM COLLECTION TELLER PHOSPHORUS BLOOD Routine 03/13/2024 11:2 6 PM COLLECTION TELLER MAGNESIUM BLOOD Routine 03/13/2024 11:26 PM COLLECTION TELLER COMPREHENSIVE METABOLIC PANEL STAT 03/13/2024 11:26 PM COLLECTION TELLER CBC W AUTO DIFFERENTIAL STAT 03/13/20 24 11:26 PM COLLECTION TELLER QUINN-RICHMOND VIRUS QUANT BLOOD STL Routine 03/13/2024 11:26 PM COLLECTION TELLER CYTOMEGALOVIRUS (CMV) QUANTITATIVE PLASMA Routine 03/13/2024 11:26 PM COLLECTION TELLER CHROMOSOME ANALYSIS LEUKEMIA BLD Routine 03/04/2024 4:13 PM COLLECTION TELLER MDS (myelodysplastic syndrome) (HCC) FISH PML/DANTE PANEL Routine 03/04/2024 4 :13 PM COLLECTION TELLER MDS (myelodysplastic syndrome) (HCC) FISH AML PANEL BLOOD OR BM RFLX PML/DANTE Routine 03/04/2024 4:13 PM COLLECTION TELLER MDS (myelodysplastic syndrome) (HCC) FISH AML+MDS PANEL BLOOD OR BONE MARROW Routine 03/04/2024 4:13 PM COLLECTION TELLER MDS (myelodysplastic syndrome) (HCC) MYELOID MALIGNANCIES MUTATION PNL STAT 03/04/2024 4:13 PM COLLECTION TELLER MDS (myelodysplastic syndrome) (HCC) HLA TYPING LOW/HIGH RESOLUTION DPB1 Routine 03/04/2024 4:13 PM COLLECTION TELLER MDS (myelodysplastic syndrome) (HCC) HLA TYPING DNA HIGH RESOLUTION DR Routine 03/04/2024 4:13 PM COLLECTION TELLER MDS (myelodysplastic syndrome) (HCC) HLA TYPING DNA HIGH RESOLUTION B Routine 03/04/2024 4:13 PM COLLECTION TELLER MDS (myelodysplastic syndrome) (HCC) HLA TYPING DNA HIGH RESOLUTION C Routine 03/04/2024 4:13 PM COLLECTION TELLER MDS (myelodysplastic syndrome) (HCC) HLA TYPING DNA HIGH RESOLUTION DQ Routine 03/04/2024 4:13 PM COLLECTION TELLER MDS (myelodysplastic syndrome) (HCC) HLA TYPING DNA HIGH RESOLUTION A Routine 03/04/2024 4:13 PM COLLECTION TELLER MDS (myelodysplastic syndrome) (HCC) HLA TYPING DNA LOW RESOLUTION DR,DQ Routine 03/04/2024 4:13 PM COLLECTION TELLER MDS (myelodysplastic syndrome) (HCC) HLA TYPING DNA LOW RESOLUTION A,B,C Routine 03/04/2024 4:13 PM COLLECTION TELLER MDS (myelodysplastic syndrome) (HCC) HLA TYPING DNA HIGH RES Routine 03/04/20 4:13 PM COLLECTION TELLER MDS (myelodysplastic syndrome) (HCC) DIFFERENTIAL MANUAL Routine 03/04/2024 4 :13 PM COLLECTION TELLER Neutropenia, unspecified type (HCC) BCR-ABL1 CML+AML PCR QUANT PNL Routine 03/04/2024 4:13 PM COLLECTION TELLER MDS (myelodysplastic syndrome) (HCC) CYTOMEGALOVIRUS ANTIBODY IGG BLOOD Routine 03/04/2024 4:13 PM COLLECTION TELLER MDS (myelodysplastic syndrome) (HCC) HEPATITIS C ANTIBODY Routine 03/04/2024 4:13 PM COLLECTION TELLER Neutropenia, unspecified type (HCC) HEPATITIS B SURFACE ANTIBODY Routine 03/04/2024 4:13 PM COLLECTION TELLER Neutropenia, unspecified type (HCC) HIV-1 HIV-2 ANTIBODY + HIV P24 AG PANEL Routine 03/04/2024 4:13 PM COLLECTION TELLER Neutropenia, unspecified type (HCC) ERYTHROCYTE SEDIMENTATION RATE Routine 03/04/2024 4:13 PM COLLECTION TELLER Neutropenia, unspecified type (HCC) C-REACTIVE PROTEIN Routine 03/04/2024 4: 13 PM COLLECTION TELLER Neutropenia, unspecified type (HCC) RHEUMATOID FACTOR BLOOD QUANTITATIVE Routine 03/04/2024 4:13 PM COLLECTION TELLER Neutropenia, unspecified type (HCC) MARLINE BLOOD SCREEN W/REFLEX TITER Routine 03/04/2024 4:13 PM COLLECTION TELLER Neutropenia, unspecified type (HCC) FERRITIN Routine 03/04/2024 4:13 PM COLLECTION TELLER Neutropenia, unspecified type (HCC) IRON + TRANSFERRIN PANEL Routine 03/04/2024 4:13 PM COLLECTION TELLER Neutropenia, unspecified type (HCC) TSH REFLEX FREE T4 Routine 03/04/2024 4: 13 PM COLLECTION TELLER Neutropenia, unspecified type (HCC) ZINC BLOOD Routine 03/04/2024 4:13 PM COLLECTION TELLER Neutropenia, unspecified type (HCC) COPPER BLOOD Routine 03/04/2024 4:13 PM COLLECTION TELLER Neutropenia, unspecified type (HCC) FOLATE Routine 03/04/2024 4:13 PM COLLECTION TELLER Neutropenia, unspecified type (HCC) VITAMIN B12 Routine 03/04/2024 4:13 PM COLLECTION TELLER Neutropenia, unspecified type (HCC) COMPREHENSIVE METABOLIC PANEL Routine 03/04/2024 4:13 PM COLLECTION TELLER Neutropenia, unspecified type (HCC) CBC W AUTO DIFFERENTIAL Routine 03/04/20 4:13 PM COLLECTION TELLER Neutropenia, unspecified type (HCC) HEPATITIS B CORE ANTIBODY TOTAL Routine 03/04/2024 4:13 PM COLLECTION TELLER Neutropenia, unspecified type (HCC) from Last 3 Months Results * (ABNORMAL) DIFFERENTIAL MANUAL (05/20/2024 9:42 AM COLLECTION TELLER) Only the most recent of15 resultswithin the time period is included. Neutrophil % 8(L) 41 - 74 % 05/20/2024 12:18 PM [facility] Lymphocyte % 39 17 - 47 % 05/20/2024 12:18 PM [facility] Monocyte % 51(H) 3 - 11 % 05/20/2024 12:18 PM [facility] Eosinophil % 2 0 - 7 % 05/20/2024 12:18 PM [facility] Neutrophil Absolute 0.07(L) 1.60 - 7.50 x10E9/L 05/20/2024 12:18 PM [facility] Lymphocyte Absolute 0.35(L) 1.00 - 4.40 x10E9/L 05/20/2024 12:18 PM [facility] Monocyte Absolute 0.46 0.15 - 1.00 x10E9/L 05/20/2024 12:18 PM [facility] Eosinophil Absolute 0.02 0.00 - 0.60 x10E9/L 05/20/2024 12:18 PM [facility] RBC Morphology REVIEWED 05/20/2024 12:18 PM [facility] Microcytosis MODERATE(A) (none) 05/20/2024 12:18 PM [facility] Schistocytes MODERATE(A) (none) 05/20/2024 12:18 PM [facility] Large Platelets PRESENT(A) (none) 12:18 PM [facility] Blood BLOOD SPECIMEN / Unknown Venipuncture / Unknown 05/20/2024 9:42 AM COLLECTION TELLER 05/20/2024 10:14 AM COLLECTION TELLER Cindy Garcia MD LAB - HEMATOLOGY ORD ERABLES [facility] [address] [place] [address], [facility] [phone] * (ABNORMAL) CBC WITH DIFFERENTIAL (05/20/2024 9:42 AM COLLECTION TELLER) Only the most recent of19 resultswithin the time period is included. WBC 0.9(LL) 4.0 - 10.7 x10E9/L 05/20/2024 12:19 PM [facility] RBC Count 4.02(L) 4.30 - 5.80 x10E12/L 05/20/2024 12:19 PM [facility] Hemoglobin 11.8(L) 13.3 - 17.5 g/dL 05/20/2024 12:19 PM [facility] Hematocrit 35.1(L) 38.7 - 51.1 % 05/20/2024 12:19 PM [facility] MCV 87.3 80.0 - 98.0 fL 05/20/2024 12:19 PM [facility] MCH 29.4 26.7 - 33.6 pg 05/20/2024 12:19 PM [facility] MCHC 33.6 31.7 - 36.3 g/dL 05/20/2024 12:19 PM [facility] RDW-CV 19.2(H) 11.3 - 14.8 % 05/20/2024 12:19 PM [facility] Platelet Count 294 150 - 420 x10E9/L 05/20/2024 12:19 PM [facility] MPV 12.7(H) 7.8 - 11.4 fL 05/20/2024 12:19 PM [facility] Preliminary Absolute Neutrophil 0.11(L) 1.60 - 7.50 x10E9/L 05/20/2024 12:19 PM [facility] Blood BLOOD SPECIMEN / Unknown Venipuncture / Unknown 05/20/2024 9:42 AM COLLECTION TELLER 05/20/2024 10:14 AM COLLECTION TELLER Cindy Garcia MD LAB - HEMATOLOGY ORD ERABLES [facility] [address] [place] [address], [facility] [phone] * (ABNORMAL) COMPREHENSIVE METABOLIC PANEL (05/20/2024 9:42 AM COLLECTION TELLER) Only the most recent of20 resultswithin the time period is included. BUN 13 7 - 26 mg/dL 05/20/2024 10:59 AM [facility] Creatinine 1.19(H) 0.71 - 1.16 mg/dL 05/20/2024 10:59 AM [facility] Sodium 143 136 - 145 mmol/L 05/20/2024 10:59 AM [facility] Potassium 3.6 3.5 - 4.5 mmol/L 05/20/2024 10:59 AM [facility] Chloride 108(H) 98 - 107 mmol/L 05/20/2024 10:59 AM [facility] CO2 25 22 - 29 mmol/L 05/20/2024 10:59 AM [facility] Glucose 61(L) 70 - 99 mg/dL 05/20/2024 10:59 AM [facility] Calcium 9.2 8.4 - 10.2 mg/dL 05/20/2024 10:59 AM [facility] Protein Total 6.5 6.0 - 8.3 g/dL 05/20/2024 10:59 AM [facility] Albumin 3.9 3.4 - 5.0 g/dL 05/20/2024 10:59 AM [facility] Bilirubin Total 1.0 0.2 - 1.2 mg/dL 05/20/2024 10:59 AM [facility] Alkaline Phosphatase 137 40 - 150 U/L 05/20/2024 10:59 AM [facility] ALT 15 5 - 55 U/L 05/20/2024 10:59 AM [facility] AST 16 5 - 34 U/L 05/20/2024 10:59 AM [facility] Anion Gap 10 6 - 16 05/20/2024 10:59 AM [facility] BUN/Creatinine Ratio 11 7 - 23 05/20/2024 10:59 AM [facility] Osmolality Calculated 294 275 - 295 mOsm/kg 05/20/2024 10:59 AM [facility] Albumin/Globulin Ratio 1.5 1.1 - 2.3 05/20/2024 10:59 AM [facility] eGFR by CKD-EPI 62(L) >=90 mL/min/1.7 3 m2 05/20/2024 10:59 AM [facility] Blood BLOOD SPECIMEN / Unknown Venipuncture / Unknown 05/20/2024 9:42 AM COLLECTION TELLER 05/20/2024 10:15 AM COLLECTION TELLER Cindy Garcia MD LAB - CHEMISTRY CHELI MONREAL [facility] Organization Address City/State/[facility] Co de Phone Number [facility] [address] [place] [address], [facility] [phone] * FLOW CYTOMETRY BONE MARROW (05/15/2024 1:35 PM COLLECTION TELLER) Only the most recent of2 resultswithin the time period is included. Case Report Flow Cytometry Case: [id number] Authorizing Provider: Chapis Prabhakar APRN-CNP Collected: 05/15/2024 01:35 PM Ordering Location: [facility] Received: 05/15/2024 03:04 PM Pathologist: Guillermo Brown MD Specimen: Bone Marrow 05/22/2024 8:[address] [facility] Addendum 1 This addendum is issued to report the results of minimal residual disease (MRD) flow cytometric analysis performed by the [facility], [address] [place] [address], [place] [address]. B one marrow aspirate - No abnormal [...] part represent peripheral blood. 05/22/2024 8:[address] [facility] Addendum electronically signed by Angeles Rosado MD on 05/22/2024 at 8:46 AM Final Diagnosis Bone marrow, flow cytometry: - No significant B-cell, increased blast, or immature monocyte population detected 05/22/2024 8:[address] [facility] Flow Cytometry Interpretation Viability: 75% B-cells: no significant population T-cells: not increased Blasts: not increased, ~1.5% represent CD34+ myeloblasts, ~23% of overall events are mature CD14+/CD64+ monocytes with no immunophenotypic aberrancies. MRD sent: Yes A bone marrow aspirate smear prepared from the flow cytometry specimen has been reviewed for quality rep purposes. 05/22/2024 8:[address] [facility] Flow Cytometry Results Differential Result Comment Flow Cell Count /uL 2,400 Total Viability % 75.0 Lymphocytes % 50 Dim CD45 Region % 8 Monocytes % 23 Granulocytes % 19 05/22/2024 8:[address] 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 Client Specimen ID # [id number] 05/22/2024 8:[address] [facility] Number of markers 19 were performed. A-2 Flow CD10 A-3 Flow CD13 A-5 Flow CD20 A-11 Flow CD2 A-13 Flow CD14 A-16 Flow CD117 A-17 Flow CD11b A-18 Flow CD11c A-1 Flow CD5 A-4 Flow CD19 A-6 Flow CD33 A-7 Flow CD34 A-8 Flow CD45 A-12 Flow CD7 A-14 Flow CD56 A-15 Flow CD64 A-9 [place]+CD19+ A-10 Lambda+CD19+ A-19 Flow HLA-DR 05/22/2024 8:[address] [facility] Pathologist Location at [facility] 05/22/2024 8:[address] [facility] Disclaimer Test performed at [facility], [address] [place] [address], [address]. *The established laboratory minimum viability is 70%. [...] high complexity clinical testing. 05/22/2024 8:[address] [facility] Embedded Images 8:[address] [facility] Pathology/Cytolo gy BONE MARROW SPECIMEN / Unknown Collection / Unknown 05/15/2024 1:35 PM COLLECTION TELLER 05/15/2024 3:04 PM COLLECTION TELLER Chapis JOLLEY LAB - PATHOLOGY/CY TOLOGY ORDERABLES [facility] [address] [place] [address]. [place] [address], [facility] [phone] * BONE MARROW BIOPSY (STL) (05/15/2024 1:35 PM COLLECTION TELLER) Only the most recent of2 resultswithin the time period is included. Case Report Bone Marrow Patholog y Report Case: [id number] Authorizing Provider: Chapis Prabhakar APRN-CNP Collected: 05/15/2024 01:35 PM Ordering Location: [facility] Received: 05/15/2024 03:04 PM Pathologist: Guillermo Brown MD Specimens: A) - Bone Marrow Clot B) - Bone Marrow Core C) - Bone Marrow Aspirate D) - Blood Peripheral 05/16/2024 3:[address] [facility] Final Diagnosis Bone marrow, aspirate, clot section, and core biopsy: - Normocellular marrow with marked erythroid hyperplasia, myeloid hypoplasia and monocytic hyperplasia. - No overt acute leukemia seen. - See description. Peripheral blood smear: - Bicytopenia. - See description. 05/16/2024 3:[address] [facility] Comment The significance of the monocytosis is unclear. By flow cytometry, these appear mature. These likely represent reactive cells. Minimal residual disease flow cytometry is pending. Immunohistochemistry is performed to assess staining cells in an architectural context: CD34 is negative for increased blasts (<2% of marrow cellularity), CD117 highlights early erythroid precursor cells. 05/16/2024 3:[address] [facility] Peripheral Smear Description RBC: normocytic anemia. WBC: leukopenia with absolute neutropenia and lymphopenia. Platelets: normal in number. 05/16/2024 3:[address] [facility] Bone Marrow Aspirate Differential [...] stain): no ring sideroblasts. 05/16/2024 3:[address] [facility] Bone Marrow Core Biopsy [...] similar to core biopsy. 05/16/2024 3:[address] [facility] Flow Cytometry Summary Bone marrow, flow cytometry ([id number]): - No significant B-cell, increased blast, or immature monocyte population detected 05/16/2024 3:[address] [facility] Clinical History AML. 05/16/2024 3:[address] [facility] Gross Description The requisition [...] in cassette B1. /VIVIAN 05/16/2024 3:[address] [facility] Pathologist Location at [facility] 05/16/2024 3:[address] [facility] Disclaimer The performance characteristics of all immunohistochemical and indirect immunofluorescence stains (if any) cited in this report were determined by the Histopathology Laboratory of [facility]. Some of these tests were developed [...] the attending (teaching) pathologist. 05/16/2024 3:[address] [facility] Embedded Images 05/16/2024 3:[address] [facility] Pathology/Cytology PERIPHERAL BLOOD / Unknown Collection / Unknown 05/15/2024 1:35 PM COLLECTION TELLER 05/15/2024 3:04 PM [facility] Miscellaneous samples (specimen) BONE MARROW SPECIMEN / Unknown 05/15/2024 1:35 PM COLLECTION TELLER 05/15/2024 3:04 PM COLLECTION TELLER Miscellaneous samples (specimen) SPECIMEN FROM BONE MARROW OBTAINED BY ASPIRATION / Unknown 05/15/2024 1:35 PM COLLECTION TELLER 05/15/2024 3:04 PM COLLECTION TELLER Miscellaneous samples (specimen) PERIPHERAL BLOOD / Unknown 05/15/2024 1:35 PM COLLECTION TELLER 05/15/2024 3:49 PM COLLECTION TELLER Chapis JOLLEY LAB - PATHOLOGY/CY TOLOGY ORDERABLES Performing Organization Address [facility] de Phone Number [facility] [address] [place] [address], [facility] [phone] * LAB MISC TEST (NOT BLOOD) (05/15/2024 1:35 PM COLLECTION TELLER) Only the most recent of4 resultswithin the time period is included. Pathologist [facility] Test Name Tempus xT + xR 05/22/2024 4:32 PM COLLECTION TELLER [facility] NON INTERF Test Result See Scanned Report 05/22/2024 4:32 PM COLLECTION TELLER [facility] NON INTERF Comment Ref Lab Tempus 05/22/2024 4:32 PM COLLECTION TELLER [facility] NON INTERF Other BONE MARROW SPECIMEN / Unknown Collection / Unknown 05/15/2024 1:35 PM COLLECTION TELLER 05/15/2024 4:01 PM COLLECTION TELLER Chapis JOLLEY LAB - BODY FLUID O RDERABLES Performing Organization Address [facility] Co de Phone Number [facility] NON INTERF [address] [place] [address], [facility] [phone] * CHROMOSOME ANALYSIS BONE MARROW PANEL (05/15/2024 1:35 PM COLLECTION TELLER) Only the most recent of2 resultswithin the time period is included. [facility] Chromosome Analysis Bone Marrow See Note Normal 05/22/2024 1:12 PM COLLECTION TELLER [facility] ([facility]) Comment: Test Performed: Chromosome Analysis Specimen Type: [...] reviewed and approved by Oliver Muhammad, PhD, [facility] This result has been reviewed and approved by Emily Street MD A portion of this analysis was performed at the following location(s): [facility] CG-KS#2 [facility] CG-IN#1 INTERPRETIVE INFORMATION: Chromosome Analysis, Bone Marrow This test was developed and its performance characteristics determined by [facility]. It has not been cleared or approved by the [place] Food and Drug Administration. This test was performed in a CLIA certified laboratory and is intended for clinical purposes. [facility] Chromosome Analysis Bone Marrow See Note 05/22/2024 1:12 PM COLLECTION TELLER [facility] ([facility]) Comment: Authorized individuals can access the [facility] Enhanced Report with an [facility] Connect account using the following link. Your local lab can assist you in obtaining the patient report if you don't have a Connect account. [email or web address] Performed By: [facility] [address] [place] [id number] Tail Puller: Uche Morley MD, PhD CLIA Number: [id number] Bone marrow BONE MARROW SPECIMEN / Unknown 05/15/2024 1:35 PM COLLECTION TELLER 05/15/2024 3:04 PM COLLECTION TELLER Chapis Prabhakar CAR FRAMER-COMPENSATOR WORKER LAB - PATHOLOGY/CY TOLOGY ORDERABLES [facility] ([facility]) [address] * EKG 12-LEAD - HOSPITAL PERFORMED (04/22/2024 1:27 PM COLLECTION TELLER) Only the most recent of3 resultswithin the time period is included. Pathologist [facility] Ventricular Rate 61 BPM [facility] Atrial Rate 61 BPM [facility] P-R Interval 112 ms [facility] QRS Duration ms 126 ms [facility] Q-T Interval ms 476 ms [facility] QTC Calculation (Bezet) 479 ms [facility] Calculated P [place] 84 degrees [facility] Calculated R [place] 36 degrees [facility] Calculated T [place] -163 degrees [facility] Interpretation EKG NORMAL SINUS RHYTHM NON-SPECIFIC INTRA-VENTRICULA R CONDUCTION BLOCK T WAVE ABNORMALITY, CONSIDER INFERIOR ISCHEMIA T WAVE ABNORMALITY, CONSIDER ANTEROLATERAL ISCHEMIA ABNORMAL ECG WHEN COMPARED WITH ECG OF 18-MAR-2024 13:48, NO SIGNIFICANT CHANGE WAS FOUND Confirmed by CAPRICE MARTINEZ HANSEL ([id number]) on 04/23/2024 8:31:57 AM [facility] 04/22/2024 1:27 PM COLLECTION TELLER 04/23/2024 8:31 AM COLLECTION TELLER Cindy Garcia MD ECG ORDERABLES [facility] * QUANTIFERON-TB GOLD PLUS 4-TUBE (04/16/2024 1:43 PM COLLECTION TELLER) Pathologist [facility] QuantiFERON Mitogen Minus NIL 9.09 IU/mL 04/18/2024 11:11 PM COLLECTION TELLER [facility]) QuantiFERON Nil Value 0.04 IU/mL 04/18/2024 11:11 PM COLLECTION TELLER [facility] ([facility]) QuantiFERON Plus TB1 Minus NIL 0.00 <=0.34 IU/mL 04/18/2024 11:11 PM COLLECTION TELLER [facility] ([facility]) QuantiFERON Plus TB2 Minus NIL 0.00 <=0.34 IU/mL 04/18/2024 11:11 PM COLLECTION TELLER [facility] ([facility]) QuantiFERON-TB Gold Plus Negative Negative 04/18/2024 11:11 PM COLLECTION TELLER [facility] ([facility]) Comment: INTERPRETIVE INFORMATION:Quantiferon TB Gold Plus Interferon [...] Mycobacterium tuberculosis Infection -- [place], 2010 (http://www.cdc.gov/mmwr/preview/mmwrhtml/cd8165t9.htm), for more information concerning test performance in low-prevalence populations and use in occupational screening. Performed By: [facility] [address] [place] [address] Tail Puller: Uche Morley MD, PhD CLIA Number: [id number] Blood BLOOD SPECIMEN / Unknown Venipuncture / Unknown 04/16/2024 1:43 PM COLLECTION TELLER 04/16/2024 2:03 PM COLLECTION TELLER Cindy Garcia MD LAB - CHEMISTRY [facility]LI [facility] Organization Address City/State/ZIP Co de Phone Number [facility] ([facility]) [address] [place] [address], [place] * [facility] BLOOD (04/16/2024 10:26 AM COLLECTION TELLER) Only the most recent of13 resultswithin the time period is included. [facility] Total 197 125 - 243 Units/L 04/16/2024 11:14 AM COLLECTION TELLER [facility] Blood BLOOD SPECIMEN / Unknown Venipuncture / Unknown 04/16/2024 10:26 AM COLLECTION TELLER 04/16/2024 10:48 AM COLLECTION TELLER Cindy Garcia MD LAB - CHEMISTRY [facility]LI [facility] [address] [place] [id number], [facility] [phone] * IR Tim Cath Insert (04/11/2024 9:45 AM COLLECTION TELLER) Anatomical Region Laterality Modality Chest X-Ray Angiograph y 04/11/2024 9:19 AM COLLECTION TELLER Impressions 04/11/2024 3:43 PM COLLECTION TELLER Impression: Successful placement of a single lumen 8 Divehi x 23 cm chest power port via [...] evaluation, please review the evaluation forms in [facility]. For details on monitored clinical parameters during the intra-service sedation time, please review the procedure nurse documentation in [facility]. Report dictated by Eduardo Coleman MD, PhD (radiology services manager). > Dictated by Eduardo Coleman MD (Candy Waffle Assembler) 04/11/2024 9:19 AM I, Davian Marshall, DO have personally reviewed and interpreted this examination/study. 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 3.Fluoroscopy-guided placement of single lumen 8 Divehi x 23 cm chest power port via [...] draped in the usual sterile manner. 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 3.Fluoroscopy-guided placement of single lumen 8 Divehi x 23 cm chestpower port via the [...] and draped inthe usual sterile manner. A lead miner blasting film of chest was obtained, which was [...] the procedure well and [facility]. There were no immediate complicationsassociated with the procedure. Impression: Successful placement of a single lumen 8 Divehi x 23 cmchest power port via the [...] evaluation, please review the evaluation forms in [facility]. For details on monitored clinical parameters during the intra-service sedation time, please review the procedure nurse documentation in [facility]. Report dictated by Eduardo Coleman MD, PhD (radiology services manager). > Dictated by Eduardo Coleman MD (Candy Waffle Assembler) 04/11/2024 9:19AM I, Davian Marshall DO have personally reviewed and interpreted this examination/study. > Interpreting Provider: Davian Marshall DO on 04/11/2024 3:43 PM Cindy Garcia MD IR ORDERABLES * PT-INR [facility] (04/11/2024 7:20 AM COLLECTION TELLER) Only the most recent of11 resultswithin the time period is included. PT 14.6 12.1 - 14.8 Seconds 04/11/2024 7:56 AM COLLECTION TELLER [facility] INR 1.2 See Comment 04/11/2024 7:56 AM COLLECTION TELLER [facility] Comment:The suggested therap eutic range for standard coumadin (warfarin) therapy is an INR of 2.0-3.0. For high-risk patients (Mechanical Mitral Valve Prosthesis, etc.), the suggested prophylactic therapeutic range is an INR of 2.5-3.5. Blood BLOOD SPECIMEN / Unknown Venipuncture / Unknown 04/11/2024 7:20 AM COLLECTION TELLER 04/11/2024 7:23 AM COLLECTION TELLER Cindy Garcia MD LAB - COAGULATION OR DERABLES [facility] [address] [place] [address], [facility] [phone] * URIC ACID BLOOD (04/01/2024 3:12 PM COLLECTION TELLER) Only the most recent of13 resultswithin the time period is included. Uric Acid 4.0 3.5 - 7.2 mg/dL 04/01/2024 5:52 PM COLLECTION TELLER [facility] Blood BLOOD SPECIMEN / Unknown Lab Venipuncture / Unknown 04/01/2024 3:12 PM COLLECTION TELLER 04/01/2024 5:30 PM COLLECTION TELLER Cindy Garcia MD LAB - CHEMISTRY CHELI MONREAL [facility] [address] [place] [address], [facility] [phone] * ERYTHROPOIETIN (04/01/2024 3:12 PM COLLECTION TELLER) Erythropoietin 22 4 - 27 mU/mL 04/02/2024 11:36 AM COLLECTION TELLER [facility] ([facility]) Comment: INTERPRETIVE INFORMATION: Erythropoietin Normal serum concentrations [...] benefit from therapy with recombinant EPO (NEJ [id number],1989). Performed By: [facility] [address] [place] [id number] Tail Puller: Uche Morley MD, PhD CLIA Number: [id number] Blood BLOOD SPECIMEN / Unknown Lab Venipuncture / Unknown 04/01/2024 3:12 PM COLLECTION TELLER 04/01/2024 3:22 PM COLLECTION TELLER Cindy Garcia MD LAB - CHEMISTRY CHELI MONREAL Performing Organization Address [facility]/ZIP Co de Phone Number [facility]) [address] [place] [address], [facility] * SOLUBLE TRANSFERRIN RECEPTOR (04/01/2024 3:12 PM COLLECTION TELLER) [facility] Soluble Transferrin Receptor 3.3 2.2 - 5.0 mg/L 04/02/2024 9:13 PM COLLECTION TELLER [facility] ([facility]) Comment: INTERPRETIVE INFORMATION: Soluble Transferrin Receptor People [...] Fe Status High Normal High Performed By: [facility] [address] [place] [address] Tail Puller: Uche Morley MD, PhD CLIA Number: [id number] Blood BLOOD SPECIMEN / Unknown Lab Venipuncture / Unknown 04/01/2024 3:12 PM COLLECTION TELLER 04/01/2024 3:22 PM COLLECTION TELLER Cindy Garcia MD LAB - CHEMISTRY CHELI MONREAL [facility] ([facility]) [address] [place] [address], [facility] * PHOSPHORUS BLOOD (04/01/2024 3:12 PM COLLECTION TELLER) Only the most recent of13 resultswithin the time period is included. Phosphorus 2.9 2.8 - 5.1 mg/dL 04/01/2024 5:52 PM COLLECTION TELLER [facility] Blood BLOOD SPECIMEN / Unknown Lab Venipuncture / Unknown 04/01/2024 3:12 PM COLLECTION TELLER 04/01/2024 5:30 PM COLLECTION TELLER Cindy Garcia MD LAB - CHEMISTRY CHELI MONREAL Performing Organization Address [facility]/ZIP Co de Phone Number [facility] [address] [place] [address], [facility] [phone] * MAGNESIUM BLOOD (04/01/2024 3:12 PM COLLECTION TELLER) Only the most recent of13 resultswithin the time period is included. Magnesium 2.1 1.6 - 2.6 mg/dL 04/01/2024 4:25 PM COLLECTION TELLER [facility] Comment:Hemolysis detected i n this specimen. Hemolysis is known to cause elevations in this analyte. Caution should be exercised in the interpretation of this result. Recommend repeat testing if clinically indicated. Blood BLOOD SPECIMEN / Unknown Lab Venipuncture / Unknown 04/01/2024 3:12 PM COLLECTION TELLER 04/01/2024 3:36 PM COLLECTION TELLER Cindy Garcia MD LAB - CHEMISTRY CHELI MONREAL Performing Organization Address City/[facility]/ZIP Co de Phone Number [facility] [address] [place] [address], [place] [phone] * LAB RESULTS ORDER (03/25/2024) 03/25/2024 Narrative 03/25/2024 Ordered by an unspecified provider. Scanned Document LAB - THERAPEUTIC DR WOODARD MONITORING ORDERABLES * PTT [facility] (03/23/2024 12:25 AM COLLECTION TELLER) Only the most recent of10 resultswithin the time period is included. APTT 35.4 23.0 - 38.4 Seconds 03/23/2024 1:31 AM COLLECTION TELLER [facility] Comment:Suggested therapeuti c range for full dose I.V. unfractionated heparin therapy for venous thromboembolism is 71 to 109 seconds. Blood BLOOD SPECIMEN / Unknown Venipuncture / Unknown 03/23/2024 12:25 AM COLLECTION TELLER 03/23/2024 1:05 AM COLLECTION TELLER Ghanshyam Dewey PA-C LAB - COAGULATION OR DERABLES [address] [address], [facility] [phone] * PATHOLOGY PERIPHERAL SMEAR REVIEW (03/18/2024 8:33 AM COLLECTION TELLER) Path Review Confirmed 03/18/2024 2:44 PM COLLECTION TELLER [facility] Blood BLOOD SPECIMEN / Unknown Lab Venipuncture / Unknown 03/18/2024 8:33 AM COLLECTION TELLER 03/18/2024 8:46 AM COLLECTION TELLER Narrative [facility] - 03/18/2024 2:44 PM COLLECTION TELLER A rare blast seen. Ghanshyam Dewey PA-C LAB - PATHOLOGY/CYTO LOGY ORDERABLES Performing Organization Address City/[facility]/ZIP Co de Phone Number [address] [address], [place] [phone] * ECHO COMPLETE W CONTRAST (03/15/2024 1:47 PM COLLECTION TELLER) IVSd 2D 1.314 cm SSM CV FUJ [...] LV A4C EF 72.078 % [facility] LV EDV A2C 124.945 ml SSM CV FU JI PACS LV EDV A4C 128.559 ml SSM CV FU JI PACS LV ESV A2C 34.187 ml SSM CV FU JI PACS LV ESV A4C 35.897 ml SSM CV FU JI PACS LVOT pk lawanda 132.418 cm/s SSM CV F U PACS LVOT VTI 32.536 cm [facility] P[facility] RVIDd 3.985 cm [facility] P[facility] RVOT pk lawanda 69.928 cm/s SSM CV F [facility] PACS RVOT VTI 14.149 cm [facility] PACS LA size 3.887 cm [facility] PACS LA vol BP 103.263 ml [facility] P[facility] RA area 17.733 cm SSM CV [facility] PACS AV pk lawanda regurg 205.453 cm/s SSM CV [facility] PACS AR VTI 104.216 cm [facility] P[facility] AV mn grad 5.22 mmHg SSM CV FU PACS AV pk lawanda 141.499 cm/s SSM CV [facility] PACS AV VTI 30.145 cm SSM CV [facility] PACS MV A pk lawanda 84.582 cm/s SSM CV F [facility] PACS MV E pk lawanda 99.639 cm/s SSM CV F [facility] PACS MV E' lateral lawanda 5.461 cm/s SSM CV [facility] PACS MV mn grad 1.183 mmHg SSM CV FU PACS MV VTI 30.572 cm [facility] P[facility] PV pk lawanda 84.446 cm/s [facility] P[facility] PV VTI 18.271 cm [facility] PACS TAPSE 1.78 cm [facility] P[facility] TR pk lawanda 276.773 cm/s [facility] PACS Ascending aorta 3.799 cm SSM CV [facility] PACS LA vol index 0.046 l/m SSM CV [facility] PACS Myocardial strain charge 2 unitless SSM CV [facility] PACS Sinus of Valsalva 3.4 cm SSM CV [facility] PACS ST junction 3.4 cm SSM CV F [facility] PACS Anatomical Region Laterality Modality Ultrasound 03/15/2024 2:04 PM COLLECTION TELLER Narrative 03/15/2024 5:17 PM COLLECTION TELLER Summary * The left ventricle is normal [...] 2:04 PM Patient Status: I/P Study Site: [facility] Primary Location: [facility] EStud Info Technical Quality: Adequate Exam Type: [...] Attending Physician: Ted Soler Fellow: Josh Knight Crop Farmers: Dhruv Sorto Left Ventricle Left ventricular systolic [...] 2:04 PM Patient Status: I/P [facility] Quality: Adequate Exam Type: ECHO [...] Soler Attending Physician: Ted Soler Fellow: Josh Kngiht Crop Farmers: Dhruv Sorto Left Ventricle Left ventricular systolic [...] BLOOD OR BONE MARROW (03/15/2024 9:05 AM COLLECTION TELLER) Pathologist [facility] MDS Panel by Fish See Note Normal 024 11:26 AM COLLECTION TELLER [facility] ([facility]) Comment: Test Performed: Myelodysplastic Syndrome (MDS) Panel by FISH (FISH MDS P) Specimen Type: Bone Marrow Indication for Testing: Myelodysplastic syndrome, unspecified RESULT Normal FISH Result Deletion 5q: not detected Monosomy 7: not detected Deletion 7q: not detected Trisomy 8: not detected Deletion 20q: not detected INTERPRETATION There was no evidence of deletion 5q31, monosomy 7, deletion 7q31, trisomy 8, or deletion 84p53-j96.1. This analysis was performed with the MDS panel probes D5S23/EGR1, D7Z1/X7K480, CEP8 (Ortiz [employer]), and Del(20q) (CytoCell). A total of 200 cells were scored for each probe. Cytogenomic Nomenclature (ISCN): nuc nereyda(D5S23,EGR1,D7Z1,J6A831,D8Z2,B74W717,MYBL2)x2[200' This result has been reviewed and approved by Nabila Gonzalez, PhD, [facility] A portion of this analysis was performed at the following location(s): [facility] Site CG-[place]#2 INTERPRETIVE INFORMATION: MDS Panel by FISH This test was developed and its performance characteristics determined by [facility]. It has not been cleared or approved by the US Food and Drug Administration. This test was performed in a CLIA certified laboratory and is intended for clinical purposes. EER MDS Fish Panel See Note 2023 11:26 AM COLLECTION TELLER [facility] ([facility]) Comment: Authorized individuals can access the Bee Shield Enhanced Report using the following link: [email or web address] Performed By: [facility] [address] [place] [address] Tail Puller: Uche Morley MD, PhD CLIA Number: [id number] Other BONE MARROW SPECIMEN / Unknown Collection / Unknown 03/15/2024 9:05 AM COLLECTION TELLER 03/15/2024 9:30 AM COLLECTION TELLER Rodo Perez MD LAB - PATHOLOG Y/CYTOLOGY ORDERABLES [facility]) [address] * FISH AML PANEL BLOOD OR BM RFLX PML/DANTE (03/15/2024 9:05 AM COLLECTION TELLER) Only the most recent of2 resultswithin the time period is included. FISH AML Panel See Note Normal 03/25/2024 10:[address] [facility] ([facility]) Comment: Test Performed: Acute Myeloid Leukemia Panel by FISH (FISHAML) Specimen Type: Bone Marrow Indication for Testing: Myelodysplastic syndrome, unspecified RESULT Normal FISH Result inv(3) or t(3;3) GATA2::MECOM Fusion: not detected Deletion 5q: not detected Monosomy 7: not detected Deletion 7q: not detected t(8;21) RUNX1::DETZ0Q2 Fusion: not detected 11p15 (NUP98) Rearrangement: not detected 11q23 (KMT2A) Rearrangement: not detected inv(16) or t(16;16) CBFB::MYH11 Fusion: not detected INTERPRETATION There was no evidence of GATA2::MECOM (also known as RPN1-EVI1) fusion due to 3q21/3q26.2 inversion or translocation, deletion 5q31, monosomy 7, deletion 7q31, RUNX1::GZBH9N0 fusion due to translocation (8;21)(q21.3;q22), 11p15 (NUP98) rearrangement, 11q23 KMT2A (MLL) rearrangement, or CBFB::MYH11 fusion due to either 16p13.1/16q22 inversion or translocation. This analysis was performed with the AML panel probes RPN1/MECOM, D5S23/EGR1, D7Z1/D7B873, RUNX1/KNHZ9E6 ([employer]iz [employer]), NUP98 and CBFB-MYH11 ([employer]), and MLL (KMT2A) ([employer]). A total of 200 cells were scored for each probe. Cytogenomic Nomenclature (ISCN): nuc nereyda(RPN1,MECOM,D5S23,EGR1,D7Z1,D9Z095,LMPC3P3,NUP98,KMT2A,MYH11,CBF B,RUNX1)x2[200' This result has been reviewed and approved by Mundo Mejia, PhD, [facility] A portion of this analysis was performed at the following location(s): [facility] Site CG-[place]#1 INTERPRETIVE INFORMATION: AML Panel by FISH This test was developed and its performance characteristics determined by [facility]. It has not been cleared or approved by the US Food and Drug Administration. This test was performed in a CLIA certified laboratory and is intended for clinical purposes. EER AML Panel by FISH See Note 03/25/2024 10:34 AM COLLECTION TELLER [facility] ([facility]) Comment: Authorized individuals can access the [employer] Shield Enhanced Report using the following link: [email or web address] Performed By: [facility] [address] [place] [address] Tail Puller: Uche Morley MD, PhD CLIA Number: [id number] Other BONE MARROW SPECIMEN / Unknown Collection / Unknown 03/15/2024 9:05 AM COLLECTION TELLER 03/15/2024 9:30 AM COLLECTION TELLER Rodo Perez MD LAB - PATHOLOG Y/CYTOLOGY ORDERABLES [facility] ([facility]) [address] [place] [address], [facility] * MYELOID MALIGNANCIES MUTATION PNL (03/15/2024 9:05 AM COLLECTION TELLER) Only the most recent of2 resultswithin the time period is included. Interpretation Myeloid Malignancy PNL See Note 03/28/2024 2:06 PM COLLECTION TELLER [facility] ([facility]) Comment: Myeloid Malignancies Mutation Panel NGS Submitted diagnosis or diagnosis under consideration for variant interpretation: Myelodysplastic syndrome, unspecified Note: Prior NGS testing performed on this patient (most recent [employer]erv accession [id number]) was reviewed in conjunction with the current case to compare molecular variants reported. The previously reported molecular variants DNMT3A, IDH1, and CUX1 are again detected in the current study. In addition, new molecular variants in STAG2, BCOR, JAK2, and CEBPA are now detected. TIER 1: Variants of Known Clinical Significance in Hematologic Malignancies 1. IDH1 c.394C>A, p.Xxf851Lnt ([id number]) VAF: 38.4% IDH1 encodes an enzyme that catalyzes the conversion of isocitrate to alpha-ketoglutarate in the citric acid cycle (23). Somatic mutations of IDH1 are found in 4-12% of patients with myelodysplastic syndrome (MDS).This mutation has been reported in hematologic malignancies (4). The prognostic significance of mutated IDH1 in MDS is uncertain (20) (27) (7) (14) (19) (32). 2. DNMT3A c.2206C>T, p.Agc254Giu ([id number]) VAF: 42.2% DNMT3A encodes a DNA [...] stem cell transplantation (2). 3. DNMT3A c.2407A>G, p.Evs892Ogq ([id number]) VAF: 38.8% This mutation has also been reported in hematologic malignancies (4). 4. JAK2 c.1849G>T, p.Dfs605Obv ([id number]) VAF: 14.4% JAK2 encodes a non-receptor protein tyrosine kinase that regulates STAT manager distribution center factors in response to cytokine receptor signaling (13). JAK2 mutations have been reported in 3-6% of patients with MDS (6) (15) (31). This JAK2 mutation (p.Ahy118Qbl) has also been reported in approximately 10-25% of patients with myelodysplastic/myeloproliferative neoplasms (MDS/MPN) (31) (21). This particular JAK2 mutation occurs in the pseudokinase (JH2) domain and leads to activation of the NOLAN-STAT pathway signaling. The prognostic significance of JAK2 mutations in MDS is unclear (6). 5. STAG2 c.1840C>T, p.Yky577* ([id number]) VAF: 31.7% STAG2 encodes a subunit [...] unmutated cohesin genes (29). 6. BCOR c.3649C>T, p.Npu2254* ([id number]) VAF: 9.6% BCOR encodes a transcriptional corepressor that interacts with BCL-6 and histone deacetylases (HDACs) (5) (12). Mutations in BCOR are seen in 4% of patients with MDS (5) (11). BCOR mutations in MDS are often frameshift and nonsense mutations that result in ohvo-qu-pqvjyquy (5) (11). This mutation is predicted to alter the normal function of BCOR. BCOR mutations are associated with a higher incidence of AML transformation in MDS patients and shorter overall survival in MDS patients (5) (11) (16). 7. BCOR c.635_638del, p.Ihy522Dpvgb*3 ([id number]) VAF: 6.2% This mutation is also predicted to alter the normal function of BCOR. TIER 2: Variants of Unknown Clinical Significance in Hematologic Malignancies 1. CEBPA c.1074_*9del, p.*359Cysext*58 (NM_[id number]) VAF: 4.7% CEBPA encodes a protein that is a member of the basic region leucine zipper family of manager distribution center factors (18). Somatic mutations of CEBPA are [...] if any, is uncertain. 2. CUX1 c.3085G>A, p.Qas0597Bhj (NM_[id number]) VAF: 44.8% This variant has been rarely reported in hematologic malignancies (1) (10), to the best of our knowledge. References 1: Gustabo-Fede P, Emmanuelel B, Zhanna CLARK et al, Assessment of Minimal Residual Disease by Next Generation Sequencing in Peripheral Blood as a Complementary Tool for Personalized Transplant Monitoring in Myeloid Neoplasms. J Clin Med 2020. PMID:82013601 2: Virginie Guo, Juan HERNANDEZ, Ulises Kim et al, Somatic mutations predict poor outcome in patients with myelodysplastic syndrome after hematopoietic stem-cell transplantation. J Clin Oncol 2014. PMID:90430341 3: cBioPortal: http://www.cbioportal.org/ 4: COSMIC: https://cancer.vipin.ac.uk/cosmic 5: Braulio F, Yu V, Nagata Y et al, BCOR and BCORL1 mutations in myelodysplastic syndromes and related disorders. Blood 2013. PMID:74140093 6: Bill M, Jennifer C, Víctor L et al, JAK2 Mutations Are Rare and Diverse in Myelodysplastic Syndromes: Case Series and Review of the Literature. Hematol Rep 2022. PMID:40781557 7: Jahaira CD, Kamla E, Mary F et al, IDH1 and IDH2 mutations in myelodysplastic syndromes and role in disease progression. Leukemia 2016. PMID:23983989 8: Asiya I, Day C, Lenin MM et al, Frequency, onset and clinical impact of somatic DNMT3A mutations in therapy-related and secondary acute myeloid leukemia. Haematologica 2012. PMID:03669203 9: Nuha O, Idania Amador, Luanne Payne et al, CEBPA polymorphisms and mutations in patients with acute myeloid leukemia, myelodysplastic syndrome, multiple myeloma and non-Hodgkin's lymphoma. Blood Cells Mol Dis 2008. PMID:98552860 10: Cassandra Kim, Cornell M, Alexis A et al, DNA methylation epitypes highlight underlying developmental and disease pathways in acute myeloid leukemia. Genome Res 2020. PMID:18547521 11: Jenna Burton Holmes AB et al, Whole-exome sequencing identifies somatic mutations of BCOR in acute myeloid leukemia with normal karyotype. Blood 2011. PMID:37844269 12: Lin RUEDA, Yashira W, Darcie Estrada et al, BCoR, a novel corepressor involved in BCL-6 repression. Genes Dev 2000. PMID:69462067 13: Fabian SS, Jen SJ, Amandeep LR et al, Nolan/STAT pathways in cytokine signaling and myeloproliferative disorders: approaches for targeted therapies. Genes Cancer 2010. PMID:89324227 14: Charity Pulido V, Grayson L et al, Mutations of IDH1 and IDH2 genes in early and accelerated phases of myelodysplastic syndromes and MDS/myeloproliferative neoplasms. Leukemia 2010. PMID:58123128 15: Malaika M, Catherine C, Ahsan W et al, Molecular analysis of myelodysplastic syndrome with isolated deletion of the long arm of chromosome 5 reveals a specific spectrum of molecular mutations with prognostic impact: a study on 123 patients and 27 genes. Haematologica 2017. PMID:23271575 16: Gregoria BAR, Meliton T, Valerie Payne et al, Spectrum and prognostic relevance of set key driver gene mutations in acute myeloid leukemia. Blood 2016. PMID:85154837 17: Mel Hughes, Milton P et al, Dominant-negative mutations of CEBPA, encoding CCAAT/enhancer binding protein-alpha (C/EBPalpha), in acute myeloid leukemia. Yusra Emely 2001. PMID:19951389 18: Mel Hughes, Complexity of CEBPA dysregulation in human acute myeloid leukemia. Clin Cancer Res 2009. PMID:54199873 19: Jose Green, Hugh Stroud et al, Clinical and biological implications of set key driver mutations in myelodysplastic syndromes. Blood 2013. PMID:92684737 20: Eileen MM, Rajinder CA, Juju OTERO et al, Differential prognostic effect of IDH1 versus IDH2 mutations in myelodysplastic syndromes: a [facility] study of 277 patients. Leukemia 2012. PMID:73089422 21: Eileen MM, George TL, Genomics of myelodysplastic syndrome/myeloproliferative neoplasm overlap syndromes. Hematology Am Soc Hematol Educ Program 2020. PMID:86520932 22: Marty Rubin, Malika Rubin, Heather Flower et al, Favorable prognostic significance of CEBPA mutations in patients with de elinor acute myeloid leukemia: a study from the Acute Leukemia Divehi Association (JOSE). Blood 2002. PMID:20093676 23: Bulmaro BENTON, Josse H, Isocitrate dehydrogenase 1 and 2 mutations in cancer: alterations at a crossroads of cellular metabolism. J Natl Cancer Inst 2010. PMID:82955430 24: Jose A, Ivan V, Yudi U et al, Dotsero analysis of DNMT3A mutations in hematological malignancies. Leukemia 2013. PMID:00773892 25: Kim LANZA, Lisa-Hussein O, Arnulfo REINOSO et al, The role of mutations in epigenetic regulators in myeloid malignancies. Yusra Rev Cancer 2012. PMID:72539430 26: Robby Mason, Hubert ISSA, Efrem M et al, CEBPA mutations in 4708 patients with acute myeloid leukemia: differential impact of bZIP and TAD mutations on outcome. Blood 2021. PMID:[id number] 27: Fabiola Mason, Roverto ASH, Sam Lynn et al, IDH1 mutations in patients with myelodysplastic syndromes are associated with an unfavorable prognosis. Haematologica 2010. PMID:17283721 28: Lisa Richmond, Bro Valdivia et al, Rare occurrence of DNMT3A mutations in myelodysplastic syndromes. Haematologica 2011. PMID:48597793 29: Josey S, Liam SAAB, Joan H et al, Genetic alterations of the cohesin complex genes in myeloid malignancies. Blood 2014. PMID:13638690 30: Barrett MERRITT, Tono L, Jossue Amador et al, Recurrent DNMT3A mutations in patients with myelodysplastic syndromes. Leukemia 2011. PMID:[id number] 31: Lawrence Camargo, Juan Diego Kim, Comparison and Implications of Mutational Profiles of Myelodysplastic Syndromes, Myeloproliferative Neoplasms, and Myelodysplastic/Myeloproliferative Neoplasms: A Latham-Analysis. Front Oncol 2020. PMID:[id number] 32: Cornell Flower, Cornell F, Yuval N et al, IDH1 Mutation Is an Independent Inferior Prognostic Indicator for Patients with Myelodysplastic Syndromes. Acta Haematol 2017. PMID:[id number] 33: Ochoa L, Gabriella R, Hieu ALBERTS, DNMT3A in haematological malignancies. Yusra Rev Cancer 2015. PMID:[id number] This result has been reviewed and approved by Jannette Dutta M.D. Low coverage regions: Listed below are regions where the average sequencing depth (number of times a particular nucleotide is sequenced) in at least 20% of the egjefo-we-tysxixrz is less than our stringent cutoff of [...] NOTCH1; NPM1*; NRAS; NSD1; PHF6; PIGA; PPM1D; TQXL47M; PRPF8; PTPN11; RAD21; RUNX1; SAMD9; SAMD9L; SETBP1; [...] developed and its performance characteristics determined by [facility]. It has not been cleared or approved by the U.S. Food and Drug Administration. This test was performed in a CLIA-certified laboratory and is intended for clinical purposes. Myeloid Malignancy Dx Mds Unspec 03/28/2024 2:06 PM COLLECTION TELLER [facility] ([facility]) Myeloid Malignancy Panel Specimen Bone Marrow 03/28/2024 2:06 PM COLLECTION TELLER [facility] ([facility]) EER Myeloid Malignancy See Note 03/28/2024 2:06 PM COLLECTION TELLER [facility] ([facility]) Comment: Authorized individuals can access the NHU[employer] Enhanced Report using the following link: [email or web address] Performed By: [facility] [address] [place] [address] Tail Puller: Uche Morley MD, PhD [place] Number: [id number] Other BONE MARROW SPECIMEN / Unknown Collection / Unknown 03/15/2024 9:05 AM COLLECTION TELLER 03/15/2024 9:30 AM COLLECTION TELLER Rodo Perez MD LAB - PATHOLOG Y/CYTOLOGY ORDERABLES [facility]) [address] * FISH PML/DANTE PANEL (03/15/2024 9:05 AM COLLECTION TELLER) Only the most recent of2 resultswithin the time period is included. EER PML/DANTE Translocation by Fish See Note 03/17/2024 4:41 PM COLLECTION TELLER [facility] ([facility]) Comment: Authorized individuals can access the [employer] Enhanced Report using the following link: [email or web address] Performed By: [facility] [address] [place] [address] Tail Puller: Uche Morley MD, PhD [place] Number: [id number] PML/DANTE Translocation by FISH See Note 03/17/2024 4:41 PM COLLECTION TELLER [facility] ([facility]) Comment: Test Performed: PML-DANTE Translocation by FISH [...] reviewed and approved by Nabila Gonzalez, PhD, [facility] A portion of this analysis was performed at the following location(s): [facility] Site [facility] INTERPRETIVE INFORMATION: PML/DANTE Translocation by FISH This test was developed and its performance characteristics determined by [facility]. It has not been cleared or approved by the US Food and Drug Administration. This test was performed in a CLIA certified laboratory and is intended for clinical purposes. Other BONE MARROW SPECIMEN / Unknown Collection / Unknown 03/15/2024 9:05 AM COLLECTION TELLER 03/15/2024 9:30 AM COLLECTION TELLER Rodo Perez MD LAB - PATHOLOG Y/CYTOLOGY ORDERABLES [facility] ([facility]) [address] * FLOW CYTOMETRY BLOOD PROFILE (03/14/2024 10:32 AM [facility]) Case Report Flow Cytometry Case: [id number] Authorizing Provider: Ghanshyam Dewey PA-C Collected: 03/14/2024 10:32 AM Ordering Location: [address] Received: 03/14/2024 01:49 PM Pathologist: Angeles Rosado MD Specimen: Blood 03/14/2024 4:[address] [facility] Final Diagnosis Peripheral blood, flow cytometric immunophenotypic analysis: - 1.2% myeloblasts detected - No evidence of a monoclonal B-cell population - See interpretation 03/14/2024 4:[address] [facility] Flow Cytometry Results Differential Result Comment WBC Count /uL 1,200 Total Viability % 100.0 Lymphocytes % 80 Dim CD45 Region % 4 Monocytes % 4 Granulocytes % 13 03/14/2024 4:[address] [facility] Flow Cytometry Interpretation Viability: 100% B-cells: polytypic, kappa:lambda ratio 1.1:1. Blasts: 1.2% of events are myeloblasts. Monocytes are mature. A peripheral blood smear prepared from the flow cytometry specimen has been reviewed for quality rep purposes. 03/14/2024 4:[address] [facility] Reason for test MDS (myelodysplastic syndrome) (HCC) 238.75 03/14/2024 4:[address] [facility] Client Specimen ID # [id number] 03/14/2024 4:[address] [facility] Pathologist Location at [facility] 03/14/2024 4:[address] [facility] Disclaimer Test performed at [facility], [address] [place] [address], [address]. *The established laboratory minimum viability is 70%. [...] high complexity clinical testing. 03/14/2024 4:[address] [facility] Embedded Images 4:[address] [facility] Number of markers 19 were performed. A-2 Flow CD10 A-3 Flow CD13 A-5 Flow CD20 A-11 Flow CD2 A-13 Flow CD14 A-16 Flow CD117 A-17 Flow CD11b A-18 Flow CD11c A-1 Flow CD5 A-4 Flow CD19 A-6 Flow CD33 A-7 Flow CD34 A-8 Flow CD45 A-12 Flow CD7 A-14 Flow CD56 A-15 Flow CD64 A-9 [place]+CD19+ A-10 Lambda+CD19+ A-19 Flow HLA-DR 03/14/2024 4:[address] [facility] Blood BLOOD SPECIMEN / Unknown Lab Venipuncture / Unknown 03/14/2024 10:32 AM COLLECTION TELLER 03/14/2024 1:49 PM COLLECTION TELLER Ghanshyam Dewey PA-C LAB - PATHOLOGY/CYTO LOGY ORDERABLES Performing Organization Address City/State/[facility] Co de Phone Number [facility] [address] [phone] * CYTOMEGALOVIRUS (CMV) QUANTITATIVE PLASMA (03/13/2024 11:26 PM COLLECTION TELLER) CMV Quant by PCR, Interp Not detected Not detected 03/14/2024 9:00 AM [facility] Blood BLOOD SPECIMEN / Unknown Venipuncture / Unknown 03/13/2024 11:26 PM COLLECTION TELLER 03/13/2024 11:37 PM COLLECTION TELLER Narrative [facility] - 03/14/2024 9:00 AM COLLECTION TELLER The Cytomegalovirus (CMV) DNA analysis utilized a [...] Soler MD LAB - CHEMISTRY OR DERABLES [facility] [address] [place] [address], [facility] [phone] * QUINN-RICHMOND VIRUS QUANT BLOOD STL (03/13/2024 11:26 PM COLLECTION TELLER) EBV Quant by PCR, Interp Not detected Not detected 03/14/2024 8:56 AM COLLECTION TELLER [facility]CRO[facility] Specimen Type Plasma 03/14/2024 8:56 AM COLLECTION TELLER [facility] Blood BLOOD SPECIMEN / Unknown Venipuncture / Unknown 03/13/2024 11:26 PM COLLECTION TELLER 03/13/2024 11:37 PM COLLECTION TELLER Narrative [facility]CRO[facility] - 03/14/2024 8:56 AM COLLECTION TELLER The [place] viral (EBV) DNA analysis utilized [...] Soler MD LAB - CHEMISTRY OR DERABLES [facility] [address] [place] [address], [facility] [phone] * D-DIMER (03/13/2024 11:26 PM COLLECTION TELLER) D-Dimer Quantitative <0.27 <=0.50 mcg/mL FEU 03/14/2024 12:00 AM COLLECTION TELLER [facility] Comment: In the absence of [...] Unknown Venipuncture / Unknown 03/13/2024 11:26 PM COLLECTION TELLER 03/13/2024 11:37 PM COLLECTION TELLER Ted Soler MD LAB - COAGULATION ORDERABLES [address] [address], [facility] [phone] * FIBRINOGEN ACTIVITY (03/13/2024 11:26 PM COLLECTION TELLER) Fibrinogen Clauss 362 200 - 400 mg/dL 03/13/2024 11:59 PM COLLECTION TELLER [facility] Blood BLOOD SPECIMEN / Unknown Venipuncture / Unknown 03/13/2024 11:26 PM COLLECTION TELLER 03/13/2024 11:37 PM COLLECTION TELLER Ted Soler MD LAB - COAGULATION ORDERABLES [address] [address], [place] [phone] * FISH AML+MDS PANEL BLOOD OR BONE MARROW (03/04/2024 4:13 PM COLLECTION TELLER) [facility] FISH AML with MDS, Therapy-Rltd AML See Note Normal 03/19/2024 4:32 PM COLLECTION TELLER [facility] ([facility]) Comment: Test Performed: Acute Myelogenous Leukemia (AML) [...] with the Therapy-Related AML panel probes D5S23/EGR1, D7Z1/U5G891, and MLL (KMT2A) ([place]). A total of 200 cells were scored for each probe. Cytogenomic Nomenclature (ISCN): nuc nereyda(D5S23,EGR1,D7Z1,I9Q485,KMT2A)x2[200' This result has been reviewed and approved by Charles Pablo MD, [facility] INTERPRETIVE INFORMATION: AML with MDS, Therapy-Related AML, FISH This test was developed and its performance characteristics determined by [facility]. It has not been cleared or approved by the US Food and Drug Administration. This test was performed in a CLIA certified laboratory and is intended for clinical purposes. EER AML with MDS, Therapy-Rltd AML FISH See Note 03/19/2024 4:32 PM COLLECTION TELLER [facility] ([facility]) Comment: Authorized individuals can access the [employer] Enhanced Report using the following link: [email or web address] Performed By: [facility] [employer] [address] [place] [address] Tail Puller: Uche Morley MD, PhD CLIA Number: [id number] Other BLOOD SPECIMEN / Unknown Collection / Unknown 03/04/2024 4:13 PM COLLECTION TELLER 03/04/2024 4:23 PM COLLECTION TELLER Cindy Garcia MD LAB - PATHOLOGY/CYTO LOGY ORDERABLES [facility] ([facility]) [address] [place] [address], [facility] * HLA TYPING LOW/HIGH RESOLUTION DPB1 (03/04/2024 4:13 PM COLLECTION TELLER) Typ DNA LR DPB1 [place] #1 *04 04/29/2024 2:56 PM COLLECTION TELLER [facility] ([facility]) Typ DNA LR DPB1 [place] #2 *11 04/29/2024 2:56 PM COLLECTION TELLER [facility] ([facility]) Typ DNA HR DPB1 [place] #1 *04:01:01G 04/29/2024 2:56 PM COLLECTION TELLER [facility] ([facility]) Typ DNA HR DPB1 [place] #2 *11:01:01G 04/29/2024 2:56 PM COLLECTION TELLER [facility] ([facility]) Test Methodology RTPCR/NGS 04/29/19 2:56 PM COLLECTION TELLER [facility] ([facility]) Date Results Entered [id number] 04/29/2024 2:56 PM COLLECTION TELLER [facility] ([facility]) Comment: Methodology - Next Generation Sequencing This test was developed and its performance characteristics determined by the [facility]. It has not been cleared or [...] high complexity clinical laboratory testing. CLIA ID# [id number] Performed at: [facility], [address] [place] [address] Senior Technical Architect: Sandeep Jerry, Ph.D., D([facility]), Blood BLOOD SPECIMEN / Unknown Lab Venipuncture / Unknown 03/04/2024 4:13 PM COLLECTION TELLER 03/05/2024 9:56 AM COLLECTION TELLER Cindy Garcia MD LAB - BLOOD BANK ORD ERABLES [facility] ([facility]) [address] [place] [address], [facility] * HLA TYPING DNA LOW RESOLUTION DR,DQ (03/04/2024 4:13 PM COLLECTION TELLER) DR DQ Low Resolution DRB1-1 *07 04/29/2024 2:56 PM COLLECTION TELLER [facility] ([facility]) DR DQ Low Resolution DQB1-1 *02 04/29/2024 2:56 PM COLLECTION TELLER [facility] ([facility]) DR DQ Low Resolution DRB3-1 Negative 04/29/2024 2:56 PM COLLECTION TELLER [facility] ([facility]) DR DQ Low Resolution DRB3-2 Negative 04/29/2024 2:56 PM COLLECTION TELLER [facility] ([facility]) DR DQ Low Resolution DRB4-1 *01 04/29/2024 2:56 PM COLLECTION TELLER [facility] ([facility]) DR DQ Low Resolution DRB4-2 Negative 04/29/2024 2:56 PM COLLECTION TELLER [facility] ([facility]) DR DQ Low Resolution DRB5-1 Negative 04/29/2024 2:56 PM COLLECTION TELLER [facility] ([facility]) DR DQ Low Resolution DRB5-2 Negative 04/29/2024 2:56 PM COLLECTION TELLER [facility] ([facility]) DR DQ Low Resolution Methodology Real Time PCR 04/29/2024 2:56 PM COLLECTION TELLER [facility] ([facility]) DR DQ Low Resolution test date [id number] 04/29/2024 2:56 PM COLLECTION TELLER [facility] ([facility]) Comment: Methodology - Real-Time PCR This test was developed and its performance characteristics determined by the [facility]. It has not been cleared or [...] high complexity clinical laboratory testing. CLIA ID# [id number] Performed at: [facility], [address] [place] [address] Senior Technical Architect: Sandeep Jerry, Ph.D., D([facility]), Blood BLOOD SPECIMEN / Unknown Lab Venipuncture / Unknown 03/04/2024 4:13 PM COLLECTION TELLER 03/05/2024 9:56 AM COLLECTION TELLER Cindy Garcia MD LAB - BLOOD BANK ORD ERABLES [facility] ([facility]) [address] [place], [place] [id number] [place] [address] * HLA TYPING DNA LOW RESOLUTION A,B,C (03/04/2024 4:13 PM COLLECTION TELLER) ABC DNA A1 *02 04/29/2024 2:56 PM COLLECTION TELLER [facility] ([facility]) ABC DNA A2 *30 04/29/2024 2:56 PM COLLECTION TELLER [facility] ([facility]) ABC DNA B1 *13 04/29/2024 2:56 PM COLLECTION TELLER [facility] ([facility]) ABC DNA B2 *44 04/29/2024 2:56 PM COLLECTION TELLER [facility] ([facility]) ABC DNA BW1 4 04/29/2024 2:56 PM COLLECTION TELLER [facility] ([facility]) ABC DNA BW2 4 04/29/2024 2:56 PM COLLECTION TELLER [facility] ([facility]) ABC DNA C1 *06 04/29/2024 2:56 PM COLLECTION TELLER [facility] ([facility]) ABC DNA C2 *16 04/29/2024 2:56 PM COLLECTION TELLER [facility] ([facility]) ABC DNA Methodology Real Time PCR 04/29/2024 2:56 PM COLLECTION TELLER [facility] ([facility]) ABC DNA Test Date [id number] 2:56 PM COLLECTION TELLER [facility] ([facility]) Comment: Methodology - Real-Time PCR This test was developed and its performance characteristics determined by the [facility]. It has not been cleared [...] high complexity clinical laboratory testing. CLIA ID# [id number] Performed at: [facility], [address] [place] [address] Senior Technical Architect: Sandeep Jerry, Ph.D., D([facility]), Blood BLOOD SPECIMEN / Unknown Lab Venipuncture / Unknown 03/04/2024 4:13 PM COLLECTION TELLER 03/05/2024 9:56 AM COLLECTION TELLER Cindy Garcia MD LAB - BLOOD BANK ORD ERABLES [facility] ([facility]) [address] [place] [address] * HLA TYPING DNA HIGH RESOLUTION DR (03/04/2024 4:13 PM COLLECTION TELLER) Blood BLOOD SPECIMEN / Unknown Lab Venipuncture / Unknown 03/04/2024 4:13 PM COLLECTION TELLER 03/05/2024 9:56 AM COLLECTION TELLER Narrative [facility] ([facility]) - 04/29/2024 4:00 PM COLLECTION TELLER See Scanned Report Cindy Garcia MD LAB - BLOOD BANK ORD ERABLES Performing Organization Address City/[facility]/ZIP Co de Phone Number [facility] ([facility]) [facility] [address] * HLA TYPING DNA HIGH RESOLUTION DQ (03/04/2024 4:13 PM COLLECTION TELLER) Blood BLOOD SPECIMEN / Unknown Lab Venipuncture / Unknown 03/04/2024 4:13 PM COLLECTION TELLER 03/05/2024 9:56 AM COLLECTION TELLER Narrative [facility] ([facility]) - 04/29/2024 4:00 PM COLLECTION TELLER See Scanned Report Cindy Garcia MD LAB - BLOOD BANK ORD ERABLES Performing Organization Address City/[facility]/ZIP Co de Phone Number [facility] ([facility]) [address] * HLA TYPING DNA HIGH RESOLUTION B (03/04/2024 4:13 PM COLLECTION TELLER) Blood BLOOD SPECIMEN / Unknown Lab Venipuncture / Unknown 03/04/2024 4:13 PM COLLECTION TELLER 03/05/2024 9:56 AM COLLECTION TELLER Narrative [facility] ([facility]) - 04/29/2024 4:00 PM COLLECTION TELLER See Scanned Report Cindy Garcia MD LAB - BLOOD BANK ORD ERABLES Performing Organization Address [facility] Co de Phone Number [facility] ([facility]) [address] * HLA TYPING DNA HIGH RESOLUTION A (03/04/2024 4:13 PM COLLECTION TELLER) Blood BLOOD SPECIMEN / Unknown Lab Venipuncture / Unknown 03/04/2024 4:13 PM COLLECTION TELLER 03/05/2024 9:56 AM COLLECTION TELLER Narrative [facility] ([facility]) - 04/29/2024 4:01 PM COLLECTION TELLER See Scanned Report Cindy Garcia MD LAB - BLOOD BANK ORD ERABLES Performing Organization Address City/[facility]/ZIP Co de Phone Number [facility] ([facility]) [address] [place] [address], [facility] * HLA TYPING DNA HIGH RESOLUTION C (03/04/2024 4:13 PM COLLECTION TELLER) Blood BLOOD SPECIMEN / Unknown Lab Venipuncture / Unknown 03/04/2024 4:13 PM COLLECTION TELLER 03/05/2024 9:56 AM COLLECTION TELLER Narrative [facility] ([facility]) - 04/29/2024 4:01 PM COLLECTION TELLER See Scanned Report Cindy Garcia MD LAB - BLOOD BANK ORD HEMALATHA [facility] ([facility]) [address] [place], [place] [address] * CHROMOSOME ANALYSIS LEUKEMIA BLD (03/04/2024 4:13 PM COLLECTION TELLER) [facility] Chromosome Analysis Leukemic Blood See Note Normal 03/23/2024 12:39 PM COLLECTION TELLER [facility] ([facility]) Comment: Test Performed: Chromosome Analysis Specimen Type: [...] FISH AML/PML and TAML MDS performed under [employer] accessions [id number] and [id number] were NORMAL. This result has been reviewed and approved by Margaret Roberson, PhD, [facility] INTERPRETIVE INFORMATION: Chromosome Analysis, Leukemic Blood This test was developed and its performance characteristics determined by [facility]. It has not been cleared or approved by the US Food and Drug Administration. This test was performed in a CLIA certified laboratory and is intended for clinical purposes. EER Chromosome Analysis Leukemic See Note 03/23/2024 12:39 PM COLLECTION TELLER [facility] ([facility]) Comment: Authorized individuals can access the [facility] Enhanced Report using the following link: [email or web address] Performed By: [facility] [address] [place] [address] Tail Puller: Uche Morley MD, PhD CLIA Number: [id number] Blood BLOOD SPECIMEN / Unknown Lab Venipuncture / Unknown 03/04/2024 4:13 PM COLLECTION TELLER 03/22/2024 5:28 PM COLLECTION TELLER Cindy Garcia MD LAB - PATHOLOGY/CYTO LOGY ORDERABLES [facility]) [address] [place] [address] * HIV-1 HIV-2 ANTIBODY + HIV P24 AG PANEL (New on 08/24) (03/04/2024 4:13 PM COLLECTION TELLER) Pathologist [facility] HIV Antigen/Antibod y 1 & 2 Non-reacti ve Non-react carlos 03/04/2024 5:12 PM COLLECTION TELLER [facility] Comment:No Laboratory eviden ce of HIV infection. Blood BLOOD SPECIMEN / Unknown Lab Venipuncture / Unknown 03/04/2024 4:13 PM COLLECTION TELLER 03/04/2024 4:23 PM COLLECTION TELLER Cindy Garcia MD LAB - CHEMISTRY ORDNatalie MONREAL [facility] [address] [place] [address], [place] [phone] * BCR-ABL1 CML+AML PCR QUANT PNL (03/04/2024 4:13 PM COLLECTION TELLER) Pathologist [facility] Interpretation TNP 03/13/2024 5:08 PM COLLECTION TELLER [facility] ([facility]) Comment: Unable to obtain results. Repeated efforts to analyze this specimen have been unsuccessful. LOW CONTROL GENE COPY NUMBER INDICATED SPECIMEN DEGRADATION. Director Review Comment 5:08 PM [facility] ([facility]) Comment: Dawood Sarabia, PhD, [facility] Director, Molecular Oncology [facility] Biology [place] [address] Background Comment 03/13/2024 5:08 PM [facility] ([facility]) Comment: This assay can detect three different [...] as indicated. Methodology Comment 03/13/2024 5:08 PM [facility] ([facility]) Comment: Total RNA is isolated from the [...] developed and its performance characteristics determined by [facility]. It has not been cleared or approved by the Food and Drug Administration. Blood BLOOD SPECIMEN / Unknown Lab Venipuncture / Unknown 03/04/2024 4:13 PM COLLECTION TELLER 03/04/2024 4:24 PM COLLECTION TELLER Narrative [facility] ([facility]) - 03/13/2024 5:08 PM COLLECTION TELLER Performed at: - [facility] [address] [facility] [place] [id number] Senior Technical Architect: Cinthya Roper [facility], Phone: [phone] Performed at: 02 - [facility] [address] [place], [place] [id number] Senior Technical Architect: Cinthya Roper [facility], Phone: [phone] Cindy Garcia MD LAB - CHEMISTRY CHELI MONREAL [facility] ([facility]) [address] [place] [id number] * TSH REFLEX FREE T4 (03/04/2024 4:13 PM COLLECTION TELLER) Pathologist [facility] TSH 0.961 0.350 - 4.940 uIU/mL 03/04/2024 5:29 PM COLLECTION TELLER [facility] Blood BLOOD SPECIMEN / Unknown Lab Venipuncture / Unknown 03/04/2024 4:13 PM COLLECTION TELLER 03/04/2024 4:27 PM COLLECTION TELLER Cindy Garcia MD LAB - CHEMISTRY CHELI MONREAL [address] [address], [place] [phone] * RHEUMATOID FACTOR BLOOD QUANTITATIVE (03/04/2024 4:13 PM COLLECTION TELLER) [facility] Rheumatoid Factor <15 <30 IU/mL 03/04/2024 4:57 PM COLLECTION TELLER [facility] Rheumatoid Factor Screen Negative Negative 03/04/2024 4:57 PM COLLECTION TELLER [facility] Blood BLOOD SPECIMEN / Unknown Lab Venipuncture / Unknown 03/04/2024 4:13 PM COLLECTION TELLER 03/04/2024 4:23 PM COLLECTION TELLER Cindy Garcia MD LAB - CHEMISTRY CHELI MONREAL [facility] [address] [place] [address], [place] [phone] * CYTOMEGALOVIRUS ANTIBODY IGG BLOOD (03/04/2024 4:13 PM COLLECTION TELLER) Pathologist [facility] Cytomegalovirus Antibody IgG <0.20 <=0.70 U/mL 03/05/2024 9:27 PM COLLECTION TELLER [facility] ([facility]) Comment: INTERPRETIVE INFORMATION: Cytomegalovirus Antibody, IgG 0.59 [...] laboratory at the same time. Performed By: [facility] [address] [place] [address] Tail Puller: Uche Morley MD, PhD CLIA Number: [id number] Blood BLOOD SPECIMEN / Unknown Lab Venipuncture / Unknown 03/04/2024 4:13 PM COLLECTION TELLER 03/04/2024 4:23 PM COLLECTION TELLER Cindy Garcia MD LAB - CHEMISTRY ORDNatalie [facility] Organization Address City/State/ZIP Co de Phone Number [facility]) [address] [place] [address] * C-REACTIVE PROTEIN (03/04/2024 4:13 PM COLLECTION TELLER) Pathologist [facility] C-Reactive Protein 0.5 <=0.5 mg/dL 03/04/2024 4:56 PM COLLECTION TELLER [facility] Blood BLOOD SPECIMEN / Unknown Lab Venipuncture / Unknown 03/04/2024 4:13 PM COLLECTION TELLER 03/04/2024 4:27 PM COLLECTION TELLER Cindy Garcia MD LAB - CHEMISTRY ORDE RABLES [place] [id number] [place] [address], [facility] [phone] * MARLINE BLOOD SCREEN W/REFLEX TITER (03/04/2024 4:13 PM COLLECTION TELLER) MARLINE IgG None Detected None Detected 03/05/2024 11:42 PM COLLECTION TELLER [facility] ([facility]) Comment: If suspicion of connective tissue disease is strong and MARLINE EIA is negative, consider testing for MARLINE by IFA ([id number]). INTERPRETIVE INFORMATION: Anti-Nuclear Antibodies (MARLINE), IgG by TOÑA Antinuclear Antibodies (MARLINE), IgG by TOÑA: MARLINE specimens are screened using enzyme-linked immunosorbent assay (TOÑA) methodology. All TOÑA results reported as Detected are further tested by indirect fluorescent assay (IFA) using HEp-2 substrate with an IgG-specific conjugate. The MARLINE TOÑA screen is designed to detect antibodies against dsDNA, histones, SS-A (Ro), SS-B (La), Pimentel, Pimentel/VALVE SETTER, Scl-70, Mey-1, centromeric proteins, other antigens extracted from the HEp-2 cell nucleus. MARLINE TOÑA assays have been reported to have lower sensitivities than MARLINE IFA for systemic autoimmune rheumatic diseases (SARD). Negative results do not necessarily rule out SARD. Performed By: [facility] [address] [place] [address] Tail Puller: Uche Morley MD, PhD CLIA Number: [id number] Blood BLOOD SPECIMEN / Unknown Lab Venipuncture / Unknown 03/04/2024 4:13 PM COLLECTION TELLER 03/04/2024 4:23 PM COLLECTION TELLER Cindy Garcia MD LAB - CHEMISTRY CHELI MONREAL [facility]) [address] * ZINC BLOOD (03/04/2024 4:13 PM COLLECTION TELLER) Pathologist [facility] Zinc 62.4 60.0 - 120.0 ug/dL 03/06/2024 6:35 AM COLLECTION TELLER [facility] ([facility]) Comment: INTERPRETIVE INFORMATION: Zinc, Serum or Plasma [...] developed and its performance characteristics determined by [facility]. It has not been cleared or approved by the [place] Food and Drug Administration. This test was performed in a CLIA certified laboratory and is intended for clinical purposes. Performed By: [facility] [address] [place] [address] Tail Puller: Uche Morley MD, PhD CLIA Number: [id number] Blood BLOOD SPECIMEN / Unknown Lab Venipuncture / Unknown 03/04/2024 4:13 PM COLLECTION TELLER 03/04/2024 4:23 PM COLLECTION TELLER Cindy Garcia MD LAB - CHEMISTRY CASTORNatalie [facility] Organization Address City/State/ZIP Co de Phone Number [facility]) [address] [place] [address], [facility] * COPPER BLOOD (03/04/2024 4:13 PM COLLECTION TELLER) Copper 108.5 70.0 - 140.0 ug/dL 03/06/2024 6:35 AM COLLECTION TELLER [facility] ([facility]) Comment: INTERPRETIVE INFORMATION: Copper, Serum or Plasma [...] developed and its performance characteristics determined by [facility]. It has not been cleared or approved by the [place] Food and Drug Administration. This test was performed in a CLIA certified laboratory and is intended for clinical purposes. Performed By: [facility] [address] [place] [address] Tail Puller: Uche Morley MD, PhD CLIA Number: [id number] Blood BLOOD SPECIMEN / Unknown Lab Venipuncture / Unknown 03/04/2024 4:13 PM COLLECTION TELLER 03/04/2024 4:23 PM COLLECTION TELLER Cindy Garcia MD LAB - CHEMISTRY ORDE RABLES [facility] ([facility]) [address] [place] [address], [facility] * ERYTHROCYTE SEDIMENTATION RATE (03/04/2024 4:13 PM COLLECTION TELLER) Pathologist [facility] Erythrocyte Sedimentation Rate Westergren 14 0 - 20 MM/HR 03/04/2024 5:10 PM COLLECTION TELLER [facility] Blood BLOOD SPECIMEN / Unknown Lab Venipuncture / Unknown 03/04/2024 4:13 PM COLLECTION TELLER 03/04/2024 4:27 PM COLLECTION TELLER Cindy Garcia MD LAB - HEMATOLOGY ORD ERABLES Performing Organization Address City/[facility]/ZIP Co de Phone Number [place] [phone] [place] [address] * HEPATITIS B SURFACE ANTIBODY (03/04/2024 4:13 PM COLLECTION TELLER) Pathologist [facility] Hepatitis B Virus Surface Antibody Non-react carlos Non-react carlos 03/04/2024 5:12 PM COLLECTION TELLER [facility] Comment: < 8 mIU/mL Hepatitis B surface Antibody (HBsAb). Nonreactive for HBsAb - individual is considered not immune to Hepatitis B Virus infection. Hepatitis B Surface Antibody Quantitative 0.3 <8.0 mIU/mL 03/04/2024 5:12 PM [facility] Comment: Hepatitis B Surface Antibody Numeric Result Interpretation: Nonreactive: <8.0 mIU/mL Indeterminate: 8.0 - 12.0 mIU/mL Reactive: >12.0 mIU/mL Blood BLOOD SPECIMEN / Unknown Lab Venipuncture / Unknown 03/04/2024 4:13 PM COLLECTION TELLER 03/04/2024 4:23 PM COLLECTION TELLER Cindy Garcia MD LAB - CHEMISTRY CHELI MONREAL [address] [address], [place] [phone] * HEPATITIS B CORE ANTIBODY TOTAL (03/04/2024 4:13 PM COLLECTION TELLER) HBc Antibody Total Non-reacti ve Non-reacti ve 03/04/2024 5:12 PM COLLECTION TELLER [facility] Blood BLOOD SPECIMEN / Unknown Lab Venipuncture / Unknown 03/04/2024 4:13 PM COLLECTION TELLER 03/04/2024 4:23 PM COLLECTION TELLER Cindy Garcia MD LAB - CHEMISTRY CHELI MONREAL Performing Organization Address City/[facility]/ZIP Co de Phone Number [address] [address], [place] [phone] * FOLATE (03/04/2024 4:13 PM COLLECTION TELLER) Folate 17.7 7.0 - 31.4 ng/mL 03/04/2024 5:29 PM COLLECTION TELLER [facility] Blood BLOOD SPECIMEN / Unknown Lab Venipuncture / Unknown 03/04/2024 4:13 PM COLLECTION TELLER 03/04/2024 4:27 PM COLLECTION TELLER Cindy Garcia MD LAB - CHEMISTRY CHELI MONREAL [address] [address], [place] [phone] * VITAMIN B12 (03/04/2024 4:13 PM COLLECTION TELLER) Vitamin B12 524 213 - 816 pg/mL 03/04/2024 5:29 PM COLLECTION TELLER [facility] Blood BLOOD SPECIMEN / Unknown Lab Venipuncture / Unknown 03/04/2024 4:13 PM COLLECTION TELLER 03/04/2024 4:27 PM COLLECTION TELLER Cindy Garcia MD LAB - CHEMISTRY CHELI MONREAL [address] [address], [facility] [phone] * (ABNORMAL) IRON + TRANSFERRIN PANEL [w/Transferrin Sat % + TIBC] (03/04/2024 4:13 PM COLLECTION TELLER) [facility] Iron 31(L) 50 - 175 ug/dL 03/04/2024 4:53 PM COLLECTION TELLER [facility] Transferrin 257 174 - 382 mg/dL 03/04/2024 4:53 PM COLLECTION TELLER [facility] Transferrin Saturation % 10(L) 16 - 50 % 03/04/2024 4:53 PM COLLECTION TELLER [facility] TIBC Calculated 321 240 - 450 ug/dL 03/04/2024 4:53 PM COLLECTION TELLER [facility] Blood BLOOD SPECIMEN / Unknown Lab Venipuncture / Unknown 03/04/2024 4:13 PM COLLECTION TELLER 03/04/2024 4:23 PM COLLECTION TELLER Cindy Garcia MD LAB - CHEMISTRY CHELI MONREAL Performing Organization Address City/[facility]/ZIP Co de Phone Number [address] [address], [facility] [phone] * HEPATITIS C ANTIBODY (03/04/2024 4:13 PM COLLECTION TELLER) [facility] Hepatitis C Antibody Non-react carlos Non-reac tive 03/04/2024 5:12 PM COLLECTION TELLER [facility] Comment:Hepatitis C Antibody screen indicates no serologic evidence of past or current infection with Hepatitis C Virus. Patients with unexplained liver disease who are immunocompromised or suspected of having acute Hepatitis C infection may benefit from Nucleic Acid Test (YUSRA) for Hepatitis C Viral RNA to confirm Hepatitis C status. Blood BLOOD SPECIMEN / Unknown Lab Venipuncture / Unknown 03/04/2024 4:13 PM COLLECTION TELLER 03/04/2024 4:23 PM COLLECTION TELLER Cindy Garcia MD LAB - CHEMISTRY CHELI MONREAL [facility] [address] [place] [address], [place] [phone] * (ABNORMAL) FERRITIN (03/04/2024 4:13 PM COLLECTION TELLER) Ferritin 21(L) 22 - 275 ng/mL 03/04/2024 5:12 PM COLLECTION TELLER [facility] Blood BLOOD SPECIMEN / Unknown Lab Venipuncture / Unknown 03/04/2024 4:13 PM COLLECTION TELLER 03/04/2024 4:23 PM COLLECTION TELLER Cindy Garcia MD LAB - CHEMISTRY CHELI MONREAL [facility] [address] [place] [address], [place] [phone] from Last 3 Months Advance Directives * Full Code (Latest Code Status on File) Date Activated Date Inactivated Comments 03/13/2024 9:41 PM 03/23/2024 2:56 PM Care Teams Candy Waffle Assembler Relationship Specialty Start Date End Date Timothy Banks MD [address] [place] [phone] PCP - General 10/19/18 Cindy Garcia MD [address] [place] [address] Singing Teacher/Oncologis t Hematology and Oncology 03/24/24
--- OUTSIDE RECORDS SUMMARY | 2024-05-27 11:40 | XMS_ITS | Clinical Summary ---
Author Organization [facility] Address [address] [place] [address] Care Team Providers Care Farmworker Vegetable Name Role Phone Timothy Banks MD Primary Care Provider [phone] Cindy Garcia MD Unavailable Source Comments [facility],non-owned Affiliates and Associated Physician Practices is amultiple site organization consisting of ambulatory clinics and hospital sitesin [place], [place], [place] and [place]. This disclosure is being madepursuant to the Care Everywhere program and may not contain all information available regarding this patient. Last updated 17.[facility] Allergies Active Allergy Reactions Criticality [...] Date Type Department Care Team Description 05/22/2024 8:40 AM DRIVING SCHOOL INSTRUCTOR - 05/22/2024 11:59 PM [employer]IVING S[employer]OL INSTRUCTOR Hospital Encounter [facility] [address] [place] [phone] Timothy Banks MD Discharge Disposition: Home or Self Care 05/22/2024 Travel 05/21/2024 9:00 AM [employer]IVING SCHOOL INSTRUCTOR - 05/21/2024 11:59 PM [employer]IVING S[employer]OL INSTRUCTOR Hospital Encounter [facility] [address] [place] [phone] Timothy Banks MD Discharge Disposition: Home or Self Care 05/20/2024 9:30 AM [employer]IVING SCHOOL INSTRUCTOR - 05/20/2024 11:59 PM [employer]IVING S[employer]OL INSTRUCTOR Hospital Encounter [facility] [address] [place] [phone] Cindy Garcia MD Discharge Disposition: Home or Self Care 05/20/2024 Travel 05/17/2024 8:58 AM [employer]IVING SCHOOL INSTRUCTOR - 05/17/2024 11:59 PM [employer]IVING S[employer]OL INSTRUCTOR Hospital Encounter [facility] [address] [place] [phone] Cindy Garcia MD Discharge Disposition: Home or Self Care 05/16/2024 9:40 AM [employer]IVING SCHOOL INSTRUCTOR Office Visit [facility] - Hematology/Oncolog y [address] [place] [phone] Stephanie Connolly APRN-EXTENSION SERVICE SPECIALIST Acute myeloid leuk w multilin dysplasia, 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); Chronic kidney disease, unspecified CKD stage; Neutropenia, unspecified type (HCC) 05/16/2024 8:49 AM DRIVING SCHOOL INSTRUCTOR - 05/16/2024 11:59 PM [employer]IVING S[employer]OL INSTRUCTOR Hospital Encounter [facility] [address] [place] [phone] Cindy Garcia MD Discharge Disposition: Home or Self Care 05/16/2024 Telephone [facility] - Hematology/Oncolog y [address] [place] [phone] Stephanie Connolly APRN-CNP Follow-up (Error/) 05/16/2024 Travel 05/15/2024 12:32 PM [employer]IVING SCHOOL INSTRUCTOR - 05/15/2024 11:59 PM DRIVING SCHOOL INSTRUCTOR Hospital Encounter [facility] [address] [place] [phone] Cindy Garcia MD Kunkle, Kelly, APRN-CNP Discharge Disposition: Home or Self Care 05/15/2024 Travel 05/13/[address] [facility] - Hematology/Oncolog [place] [address] Cindy Garcia MD MEDICATION REFILL 05/02/2024 1:30 PM [employer]IVING S[employer]OL INSTRUCTOR Video Visit [facility] - Hematology/Oncolog y [address] [place] [phone] Cindy Garcia MD 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) 05/01/2024 Orders Only [facility] - Hematology/Oncolog y [place] [address] Cindy Garcia MD 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) 04/22/2024 12:45 PM DRIVING SCHOOL INSTRUCTOR - 04/22/2024 11:59 PM [employer]IVING SCHOOL INSTRUCTOR Hospital Encounter [facility] [address] [place] [address] Cindy Garcia MD Discharge Disposition: Home or Self Care 04/22/2024 9:38 AM [employer]IVING SCHOOL INSTRUCTOR - 04/22/2024 12:44 PM [employer]IVING SCHOOL INSTRUCTOR Hospital Encounter [facility] [address] [place] [phone] Unknown, Provider Discharge Disposition: Home or Self Care 04/22/2024 Travel 04/22/2024 Refill [facility] - Hematology/Oncolog y [address] [place] [phone] Cindy Garcia MD Refill Request 04/22/2024 Orders Only [facility] - Hematology/Oncolog y [address] [place] [address] Tg Amezcua, KEVIN 04/22/2024 Orders Only [facility] - Hematology/Oncolog y [address] [place] [address] Tg Amezcua, KEVIN 04/22/2024 Telephone [facility] - Hematology/Oncolog y [address] [place] [phone] Nikole Chou RN Appointment 04/19/2024 9:58 AM [employer]IVING SCHOOL INSTRUCTOR - 04/19/2024 11:59 PM [employer]IVING SCHOOL INSTRUCTOR Hospital Encounter [facility] [address] [place] [phone] Unknown, Provider Discharge Disposition: Home or Self Care 04/19/2024 Travel 04/18/2024 10:30 AM [employer]IVING SCHOOL INSTRUCTOR Office Visit [facility] - Hematology/Oncolog y [address] [place] [phone] Cindy Garcia MD 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) 04/18/2024 9:32 AM DRIVING SCHOOL INSTRUCTOR - 04/18/2024 11:59 PM DRIVING SCHOOL INSTRUCTOR Hospital Encounter [facility] [address] [place] [phone] Unknown, Provider Discharge Disposition: Home or Self Care 04/18/2024 Travel 04/17/2024 10:32 AM DRIVING SCHOOL INSTRUCTOR - 04/17/2024 11:59 PM DRIVING SCHOOL INSTRUCTOR Hospital Encounter [facility] [address] [place] [phone] Timothy Banks MD Discharge Disposition: Home or Self Care 04/16/2024 10:00 AM [employer]IVING SCHOOL INSTRUCTOR - 04/16/2024 11:59 PM DRIVING SCHOOL INSTRUCTOR Hospital Encounter [facility] [address] [place] [phone] Unknown, Provider Discharge Disposition: Home or Self Care 04/15/2024 Orders Only [facility] [address] [place] [phone] Cindy Garcia MD 04/11/2024 5:49 AM DRIVING SCHOOL INSTRUCTOR - 04/11/2024 11:05 AM [employer]IVING S[employer]OL INSTRUCTOR Hospital Encounter [facility] [address] [place] [address] Cindy Garcia MD Interven Radiology Discharge Disposition: Home or Self Care 04/10/2024 Orders Only [facility] [address] [place] [phone] Cindy Garcia MD Chronic kidney disease, unspecified CKD stage 04/05/2024 Orders Only [facility] [address] [place] [phone] Cindy Garcia MD 04/04/2024 Telephone [facility] - Hematology/Oncolog y [address] [place] [phone] Cindy Garcia MD Medication Prior Auth Request 04/01/2024 3:09 PM [employer]IVING S[employer]OL INSTRUCTOR - 04/01/2024 11:59 PM [employer]IVING SCHOOL INSTRUCTOR Hospital Encounter [facility] [address] [place] [address], [address] [place] [address] Discharge Disposition: Home or Self Care 04/01/2024 2:00 PM [employer]IVING S[employer]OL INSTRUCTOR Office Visit [facility] - Hematology/Oncolog y [address] [place] [phone] Cindy Garcia MD 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) 04/01/2024 Orders Only [facility] [address] [place] [phone] Cindy Garcia MD Tumor lysis syndrome (HCC) 04/01/2024 Travel 04/01/2024 Orders Only [facility] [address] [place] [phone] Cindy Garcia MD Acute myeloid leukemia 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) 03/25/2024 Orders Only [facility] [address] [place] [phone] Kasie Ektaelle Chaney, SPECIALTY TRANSFORMER ASSEMBLER-EXTENSION SERVICE SPECIALIST 03/25/2024 Orders Only [facility] - Hematology/Oncolog y [address] [place] [phone] Cindy Garcia MD Acute myeloid leuk w multilin dysplasia, 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) 03/25/2024 Telephone Transitional Care at [facility] [address] [place] [phone] Adamaris Jesus, audiovisual tech 03/14/2024 [facility] [address] [place] [address] Cindy Garcia MD Medication Monitoring (VENCLEXTA 100 MG TABLET/) 03/14/2024 Telephone [facility] - Hematology/Oncolog y [address] [place] [phone] Cidny Garcia MD Medication Prior Auth Request 03/14/2024 Telephone [facility] - Hematology/Oncolog y [address] [place] [phone] Cindy Garcia MD Medication Prior Auth Request 03/14/2024 Telephone [facility] - Hematology/Oncolog y [address] [place] [phone] Cindy Garcia MD Medication Prior Auth Request 03/13/2024 7:14 PM [employer]IVING SCHOOL INSTRUCTOR - 03/23/2024 1:56 PM [employer]IVING SCHOOL INSTRUCTOR Hospital Encounter [facility]N ACUTE [address] [place] [address] Cindy Garcia MD Kumar, Ashwath, MD Schrader, Kevin Michael, MD Masud, Josh Chavez MD Internal Medicine Discharge Disposition: Home or Self Care 03/13/2024 Travel 03/13/2024 Telephone [facility] [address] [place] [phone] Cindy Garcia MD Medication Prior Auth Request 03/13/2024 Orders Only [facility] [address] [place] [address] Sammie Hartman, PharmD 03/13/2024 Orders Only [facility] [address] [place] [phone] Cindy Garcia MD 03/04/2024 3:35 PM DRIVING SCHOOL INSTRUCTOR - 03/04/2024 11:59 PM DRIVING SCHOOL INSTRUCTOR Hospital Encounter [facility] [address] [facility], [address]nd [place] [address] Discharge Disposition: Home or Self Care 03/04/2024 2:00 PM [employer]IVING SCHOOL INSTRUCTOR Office Visit [facility] - Hematology/Oncolog y [address] [place] [phone] Cindy Garcia MD MDS (myelodysplastic syndrome) (HCC) (Primary Dx) 03/04/2024 Travel 03/04/2024 Orders Only [facility] [address] [place] [phone] Cindy Garcia MD MDS (myelodysplastic syndrome) (HCC) 03/01/2024 Orders Only [facility] [address] [place] [phone] Cindy Garcia MD Neutropenia, unspecified type (HCC) 03/01/2024 Telephone [facility] - Hematology/Oncolog y [address] [place] [phone] Cindy Mansfield MA Appointment (Patient has comfirmed) from Last 3 Months Social History Tobacco [...] 03/13/2024 [facility] of Occupat ional Health - Occupational Stress [...] were you homeless or living in a fci (including now)? No 03/13/2024 Sex and Gender Information Value Date Recorded Sex Assigned at Male 03/05/2024 8:04 AM [employer]IVING S[employer]OL INSTRUCTOR Gender Identity Male 03/05/2024 8:04 AM [employer]IVING S[employer]OL INSTRUCTOR Sexual Orientation Straight 03/05/2024 8: 04 AM [employer]IVING SCHOOL INSTRUCTOR Last Filed Vital Signs Vital Sign Reading Time Taken Comments Blood Pressure 145/94 05/22/2024 8:44 AM [employer]IVING SCHOOL INSTRUCTOR Pulse 70 05/22/2024 8:44 AM [employer]IVING SCHOOL INSTRUCTOR Temperature 36.5 C (97.7 F) 05/22/2024 8:44 AM [employer]IVING SCHOOL INSTRUCTOR Respiratory Rate 18 05/22/2024 8:44 AM [employer]IVING SCHOOL INSTRUCTOR Oxygen Saturation 100% 05/22/2024 8:44 AM [employer]IVING SCHOOL INSTRUCTOR Inhaled Oxygen Concentration - - Weight 96.2 kg (212 lb) 05/21/2024 9:20 AM DRIVING SCHOOL INSTRUCTOR Height 182.9 cm (6') 05/15/2024 12:50 PM DRIVING SCHOOL INSTRUCTOR Body Mass Index 28.75 05/15/2024 12:50 PM [employer]IVING SCHOOL INSTRUCTOR Plan of Treatment Upcoming Encounters Date Type Department Care Team (Late st Contact Info) Description 05/30/2024 11:00 AM [employer]IVING SCHOOL INSTRUCTOR Office Visit [facility] - Hematology/Oncology [address] [place] [phone] Cindy Garcia MD [address] [place] [phone] 06/13/2024 9:00 AM [employer]IVING SCHOOL INSTRUCTOR Appointment [facility] [address] [place] [phone] 06/14/2024 9:00 AM DRIVING SCHOOL INSTRUCTOR Appointment [facility] [address] [place] [phone] 06/17/2024 9:20 AM CDT Appointment [facility] [address] [place] [phone] 06/18/2024 9:20 AM CDT Appointment [facility] [address] [place] [phone] 06/19/2024 9:00 AM CDT Appointment [facility] [address] [place] [address] [phone] Health Maintenance Due Date Last Done Comments DTAP/TDAP/TD VACCINES (1 - Tdap) 11/04/1963 PNEUMOCOCCAL VACCINE 50+ (1 of 2 - PCV) 11/04/1963 ZOSTER VACCINE (1 of 2) 11/04/1963 Respiratory Syncytial Virus (RSV) Vaccine Pt: or over 60 yrs (1 - 1-dose 75+ series) 11/04/2019 COVID-19 VACCINE (4 - season) 2023 04/14/2021, 06/25/2020, 06/02/2020 DEPRESSION SCREENING 04/10/2024 MEDICARE AWV CALENDAR YEAR 2024 INFLUENZA VACCINE Completed 01/23/2024, [...] this topic Medical Devices Implanted Type Area Teacher Private Device Identifier Shelf Expiration Date Model / Serial / Lot Port Implinfn Powerport Clrvu Argd Kandy Implanted:Qty : 1 on 04/11/2024 by Davian Marshall MD at [facility] Catheters Right: Chest Wall [employer] [id number] 02/07/2025 [id number] / / [id number] Procedures Procedure Name Priority Date/Time Associated Diagnosis Comments DIFFERENTIAL MANUAL Routine 05/20/2024 9 :42 AM [employer]IVING SCHOOL INSTRUCTOR Acute myeloid leuk w multilin dysplasia, 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) COMPREHENSIVE METABOLIC PANEL Routine 05/20/2024 9:42 AM [employer]IVING SCHOOL INSTRUCTOR Acute myeloid leuk w multilin dysplasia, 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) CBC W AUTO DIFFERENTIAL Routine 05/20/19 9:42 AM [employer]IVING SCHOOL INSTRUCTOR Acute myeloid leuk w multilin dysplasia, 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) DIFFERENTIAL MANUAL Routine 05/16/2024 9 :03 AM [employer]IVING SCHOOL INSTRUCTOR Acute myeloid leuk w multilin dysplasia, 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) COMPREHENSIVE METABOLIC PANEL Routine 05/16/2024 9:03 AM [employer]IVING SCHOOL INSTRUCTOR Acute myeloid leuk w multilin dysplasia, 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) CBC W AUTO DIFFERENTIAL Routine 05/16/19 9:03 AM [employer]IVING SCHOOL INSTRUCTOR Acute myeloid leuk w multilin dysplasia, 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) CHROMOSOME ANALYSIS BONE MARROW PANEL Routine 05/15/2024 1:35 PM DRIVING SCHOOL INSTRUCTOR Acute myeloid leuk w multilin dysplasia, 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) MDS (myelodysplastic syndrome) (HCC) FLOW CYTOMETRY BONE MARROW Routine 05/15/2024 1:35 PM DRIVING SCHOOL INSTRUCTOR Acute myeloid leuk w multilin dysplasia, 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) MDS (myelodysplastic syndrome) (HCC) BONE MARROW BIOPSY (STL) Routine 05/15/2024 1:35 PM DRIVING SCHOOL INSTRUCTOR Acute myeloid leuk w multilin dysplasia, 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) MDS (myelodysplastic syndrome) (HCC) LAB MISC TEST (NOT BLOOD) Routine 05/15/2024 1:35 PM DRIVING SCHOOL INSTRUCTOR Acute myeloid leuk w multilin dysplasia, 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) MDS (myelodysplastic syndrome) (HCC) LAB MISC TEST (NOT BLOOD) Routine 05/15/2024 1:35 PM DRIVING SCHOOL INSTRUCTOR Acute myeloid leuk w multilin dysplasia, 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) MDS (myelodysplastic syndrome) (HCC) DIFFERENTIAL MANUAL Routine 05/15/2024 1 :01 PM [employer]IVING SCHOOL INSTRUCTOR Acute myeloid leuk w multilin dysplasia, 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) MDS (myelodysplastic syndrome) (HCC) CBC W AUTO DIFFERENTIAL Routine 05/15/19 25 1:01 PM DRIVING SCHOOL INSTRUCTOR Acute myeloid leuk w multilin dysplasia, 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) MDS (myelodysplastic syndrome) (HCC) EKG 12-LEAD Routine 04/22/2024 1:27 PM [employer]IVING S[employer]OL INSTRUCTOR Acute myeloid leukemia 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) DIFFERENTIAL MANUAL Routine 04/22/2024 1 0:11 AM DRIVING SCHOOL INSTRUCTOR Acute myeloid leuk w multilin dysplasia, 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) COMPREHENSIVE METABOLIC PANEL Routine 04/22/2024 10:11 AM DRIVING SCHOOL INSTRUCTOR Acute myeloid leuk w multilin dysplasia, 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) CBC W AUTO DIFFERENTIAL Routine 04/22/19 25 10:11 AM DRIVING SCHOOL INSTRUCTOR Acute myeloid leuk w multilin dysplasia, 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) COMPREHENSIVE METABOLIC PANEL Routine 04/18/2024 9:48 AM DRIVING SCHOOL INSTRUCTOR Acute myeloid leuk w multilin dysplasia, 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) CBC W AUTO DIFFERENTIAL Routine 04/18/19 9:48 AM DRIVING SCHOOL INSTRUCTOR Acute myeloid leuk w multilin dysplasia, 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) QUANTIFERON-TB GOLD PLUS 4-TUBE Routine 04/16/2024 1:43 PM DRIVING SCHOOL INSTRUCTOR LDH BLOOD Routine 04/16/2024 10:26 AM [employer]IVING SCHOOL INSTRUCTOR Tumor lysis syndrome (HCC) COMPREHENSIVE METABOLIC PANEL Routine 04/16/2024 10:26 AM DRIVING SCHOOL INSTRUCTOR Acute myeloid leuk w multilin dysplasia, 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) CBC W AUTO DIFFERENTIAL Routine 04/16/19 10:26 AM DRIVING SCHOOL INSTRUCTOR Acute myeloid leuk w multilin dysplasia, 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) COMPREHENSIVE METABOLIC PANEL Routine 04/11/2024 10:54 AM [employer]IVING SCHOOL INSTRUCTOR Acute myeloid leuk w multilin dysplasia, 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) CBC W AUTO DIFFERENTIAL Routine 04/11/19 10:54 AM DRIVING SCHOOL INSTRUCTOR Acute myeloid leuk w multilin dysplasia, 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) IR TIM CATH INSERT Routine 04/11/2024 9:45 AM [employer]IVING S[employer]OL INSTRUCTOR Acute myeloid leukemia 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) PT-INR [facility] STAT 04/11/2024 7:20 AM [employer]IVING SCHOOL INSTRUCTOR Acute myeloid leukemia 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) MDS (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, 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) PHOSPHORUS BLOOD Routine 04/01/2024 3:12 PM [employer]IVING S[employer]OL INSTRUCTOR Tumor lysis syndrome (HCC) URIC ACID BLOOD Routine 04/01/2024 3:12 PM [employer]IVING SCHOOL INSTRUCTOR Tumor lysis syndrome (HCC) DIFFERENTIAL MANUAL Routine 04/01/2024 3 :12 PM [employer]IVING SCHOOL INSTRUCTOR Acute myeloid leukemia 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) MAGNESIUM BLOOD Routine 04/01/2024 3:12 PM [employer]IVING S[employer]OL INSTRUCTOR Acute myeloid leukemia 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) ERYTHROPOIETIN Routine 04/01/2024 3:12 PM [employer]IVING S[employer]OL INSTRUCTOR Acute myeloid leukemia 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) SOLUBLE TRANSFERRIN RECEPTOR Routine 04/01/2024 3:12 PM [employer]IVING S[employer]OL INSTRUCTOR Acute myeloid leukemia 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) COMPREHENSIVE METABOLIC PANEL Routine 04/01/2024 3:12 PM [employer]IVING S[employer]OL INSTRUCTOR Acute myeloid leukemia 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) CBC W AUTO DIFFERENTIAL Routine 04/01/20 3:12 PM [employer]IVING S[employer]OL INSTRUCTOR Acute myeloid leukemia 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) LAB RESULTS ORDER 03/25/2024 DIFFERENTIAL MANUAL AM Draw 03/23/2024 1 2:25 AM [employer]IVING SCHOOL INSTRUCTOR MAGNESIUM BLOOD Routine 03/23/2024 12:25 AM DRIVING SCHOOL INSTRUCTOR URIC ACID BLOOD Routine 03/23/2024 12:25 AM DRIVING SCHOOL INSTRUCTOR PHOSPHORUS BLOOD Routine 03/23/2024 12:2 5 AM DRIVING SCHOOL INSTRUCTOR COMPREHENSIVE METABOLIC PANEL Routine 03/23/2024 12:25 AM DRIVING SCHOOL INSTRUCTOR LDH BLOOD Routine 03/23/2024 12:25 AM DRIVING SCHOOL INSTRUCTOR PTT [facility] AM Draw 03/23/2024 12:25 AM DRIVING S[employer]OL INSTRUCTOR PT-INR [facility] AM Draw 03/23/2024 12:25 AM [employer]IVING S[employer]OL INSTRUCTOR CBC W AUTO DIFFERENTIAL AM Draw 03/23/20 12:25 AM DRIVING SCHOOL INSTRUCTOR MAGNESIUM BLOOD Routine 03/22/2024 6:20 PM DRIVING SCHOOL INSTRUCTOR URIC ACID BLOOD Routine 03/22/2024 6:20 PM DRIVING SCHOOL INSTRUCTOR PHOSPHORUS BLOOD Routine 03/22/2024 6:20 PM DRIVING SCHOOL INSTRUCTOR COMPREHENSIVE METABOLIC PANEL Routine 03/22/2024 6:20 PM DRIVING SCHOOL INSTRUCTOR LDH BLOOD Routine 03/22/2024 6:20 PM DRIVING SCHOOL INSTRUCTOR DIFFERENTIAL MANUAL AM Draw 03/22/2024 6 :58 AM [employer]IVING SCHOOL INSTRUCTOR MAGNESIUM BLOOD Routine 03/22/2024 6:58 AM DRIVING SCHOOL INSTRUCTOR URIC ACID BLOOD Routine 03/22/2024 6:58 AM DRIVING SCHOOL INSTRUCTOR PHOSPHORUS BLOOD Routine 03/22/2024 6:58 AM DRIVING SCHOOL INSTRUCTOR COMPREHENSIVE METABOLIC PANEL Routine 03/22/2024 6:58 AM DRIVING SCHOOL INSTRUCTOR LDH BLOOD Routine 03/22/2024 6:58 AM DRIVING SCHOOL INSTRUCTOR PTT [facility] AM Draw 03/22/2024 6:58 AM DRIVING SCHOOL INSTRUCTOR PT-INR [facility] AM Draw 03/22/2024 6:58 AM DRIVING SCHOOL INSTRUCTOR CBC W AUTO DIFFERENTIAL AM Draw 03/22/20 6:58 AM DRIVING SCHOOL INSTRUCTOR MAGNESIUM BLOOD Routine 03/21/2024 3:47 AM DRIVING SCHOOL INSTRUCTOR URIC ACID BLOOD Routine 03/21/2024 3:47 AM DRIVING SCHOOL INSTRUCTOR PHOSPHORUS BLOOD Routine 03/21/2024 3:47 AM DRIVING SCHOOL INSTRUCTOR COMPREHENSIVE METABOLIC PANEL Routine 03/21/2024 3:47 AM DRIVING SCHOOL INSTRUCTOR LDH BLOOD Routine 03/21/2024 3:47 AM DRIVING SCHOOL INSTRUCTOR PTT [facility] AM Draw 03/21/2024 3:47 AM DRIVING SCHOOL INSTRUCTOR PT-INR [facility] AM Draw 03/21/2024 3:47 AM DRIVING SCHOOL INSTRUCTOR CBC W AUTO DIFFERENTIAL AM Draw 03/21/20 3:47 AM DRIVING SCHOOL INSTRUCTOR MAGNESIUM BLOOD Routine 03/20/2024 4:07 PM DRIVING SCHOOL INSTRUCTOR URIC ACID BLOOD Routine 03/20/2024 4:07 PM DRIVING SCHOOL INSTRUCTOR PHOSPHORUS BLOOD Routine 03/20/2024 4:07 PM DRIVING SCHOOL INSTRUCTOR COMPREHENSIVE METABOLIC PANEL Routine 03/20/2024 4:07 PM DRIVING SCHOOL INSTRUCTOR LDH BLOOD Routine 03/20/2024 4:07 PM DRIVING SCHOOL INSTRUCTOR DIFFERENTIAL MANUAL AM Draw 03/20/2024 6 :28 AM [employer]IVING SCHOOL INSTRUCTOR LDH BLOOD Routine 03/20/2024 6:28 AM DRIVING SCHOOL INSTRUCTOR PTT [facility] AM Draw 03/20/2024 6:28 AM DRIVING SCHOOL INSTRUCTOR PT-INR [facility] AM Draw 03/20/2024 6:28 AM DRIVING SCHOOL INSTRUCTOR URIC ACID BLOOD Routine 03/20/2024 6:28 AM DRIVING SCHOOL INSTRUCTOR PHOSPHORUS BLOOD Routine 03/20/2024 6:28 AM DRIVING SCHOOL INSTRUCTOR MAGNESIUM BLOOD Routine 03/20/2024 6:28 AM DRIVING SCHOOL INSTRUCTOR COMPREHENSIVE METABOLIC PANEL AM Draw 03/20/2024 6:28 AM DRIVING SCHOOL INSTRUCTOR CBC W AUTO DIFFERENTIAL AM Draw 03/20/20 6:28 AM DRIVING SCHOOL INSTRUCTOR DIFFERENTIAL MANUAL AM Draw 03/19/2024 6 :23 AM DRIVING SCHOOL INSTRUCTOR LDH BLOOD Routine 03/19/2024 6:23 AM DRIVING SCHOOL INSTRUCTOR PTT SLH AM Draw 03/19/2024 6:23 AM DRIVING SCHOOL INSTRUCTOR PT-INR [facility] AM Draw 03/19/2024 6:23 AM DRIVING SCHOOL INSTRUCTOR URIC ACID BLOOD Routine 03/19/2024 6:23 AM DRIVING SCHOOL INSTRUCTOR PHOSPHORUS BLOOD Routine 03/19/2024 6:23 AM DRIVING SCHOOL INSTRUCTOR MAGNESIUM BLOOD Routine 03/19/2024 6:23 AM DRIVING SCHOOL INSTRUCTOR COMPREHENSIVE METABOLIC PANEL AM Draw 03/19/2024 6:23 AM DRIVING SCHOOL INSTRUCTOR CBC W AUTO DIFFERENTIAL AM Draw 03/19/20 6:23 AM DRIVING SCHOOL INSTRUCTOR EKG 12-LEAD Routine 03/18/2024 1:48 PM [employer]IVING S[employer]OL INSTRUCTOR Inverted T wave PATHOLOGY PERIPHERAL SMEAR REVIEW AM Draw 03/18/2024 8:33 AM [employer]IVING SCHOOL INSTRUCTOR DIFFERENTIAL MANUAL AM Draw 03/18/2024 8 :33 AM [employer]IVING SCHOOL INSTRUCTOR LDH BLOOD Routine 03/18/2024 8:33 AM DRIVING SCHOOL INSTRUCTOR PTT SLH AM Draw 03/18/2024 8:33 AM DRIVING SCHOOL INSTRUCTOR PT-INR [facility] AM Draw 03/18/2024 8:33 AM DRIVING SCHOOL INSTRUCTOR URIC ACID BLOOD Routine 03/18/2024 8:33 AM DRIVING SCHOOL INSTRUCTOR PHOSPHORUS BLOOD Routine 03/18/2024 8:33 AM DRIVING SCHOOL INSTRUCTOR MAGNESIUM BLOOD Routine 03/18/2024 8:33 AM DRIVING SCHOOL INSTRUCTOR COMPREHENSIVE METABOLIC PANEL AM Draw 03/18/2024 8:33 AM DRIVING SCHOOL INSTRUCTOR CBC W AUTO DIFFERENTIAL AM Draw 12/09/20 24 8:33 AM DRIVING SCHOOL INSTRUCTOR DIFFERENTIAL MANUAL AM Draw 03/17/2024 5 :28 AM [employer]IVING SCHOOL INSTRUCTOR LDH BLOOD Routine 03/17/2024 5:28 AM DRIVING SCHOOL INSTRUCTOR PTT SLH AM Draw 03/17/2024 5:28 AM DRIVING SCHOOL INSTRUCTOR PT-INR [facility] AM Draw 03/17/2024 5:28 AM DRIVING SCHOOL INSTRUCTOR URIC ACID BLOOD Routine 03/17/2024 5:28 AM DRIVING SCHOOL INSTRUCTOR PHOSPHORUS BLOOD Routine 03/17/2024 5:28 AM DRIVING SCHOOL INSTRUCTOR MAGNESIUM BLOOD Routine 03/17/2024 5:28 AM DRIVING SCHOOL INSTRUCTOR COMPREHENSIVE METABOLIC PANEL AM Draw 03/17/2024 5:28 AM [employer]IVING SCHOOL INSTRUCTOR CBC W AUTO DIFFERENTIAL AM Draw 03/17/20 24 5:28 AM [employer]IVING SCHOOL INSTRUCTOR DIFFERENTIAL MANUAL AM Draw 03/16/2024 1 2:04 AM [employer] LDH BLOOD Routine 03/16/2024 12:04 AM [employer] PTT [facility] AM Draw 03/16/2024 12:04 AM [employer] PT-INR [facility] AM Draw 03/16/2024 12:04 AM [employer] URIC ACID BLOOD Routine 03/16/2024 12:04 AM [employer] PHOSPHORUS BLOOD Routine 03/16/2024 12:0 4 AM [employer] MAGNESIUM BLOOD Routine 03/16/2024 12:04 AM [employer] COMPREHENSIVE METABOLIC PANEL AM Draw 03/16/2024 12:04 AM [employer] CBC W AUTO DIFFERENTIAL AM Draw 12/07/20 24 12:04 AM [employer] ECHO COMPLETE W CONTRAST Routine 03/15/2024 1:47 PM [employer] MDS (myelodysplastic syndrome) (HCC) MYELOID MALIGNANCIES MUTATION PNL Routine 03/15/2024 9:05 AM [employer] MDS (myelodysplastic syndrome) (HCC) FISH MDS PANEL BLOOD OR BONE MARROW Routine 03/15/2024 9:05 AM [employer] MDS (myelodysplastic syndrome) (HCC) FISH AML PANEL BLOOD OR BM RFLX PML/DANTE Routine 03/15/2024 9:05 AM [employer] MDS (myelodysplastic syndrome) (HCC) FLOW CYTOMETRY BONE MARROW Routine 03/15/2024 9:05 AM [employer] MDS (myelodysplastic syndrome) (HCC) BONE MARROW BIOPSY (STL) Routine 03/15/2024 9:05 AM [employer] MDS (myelodysplastic syndrome) (HCC) FISH PML/DANTE PANEL Routine 03/15/2024 9 :05 AM [employer] MDS (myelodysplastic syndrome) (HCC) CHROMOSOME ANALYSIS BONE MARROW PANEL Routine 03/15/2024 9:05 AM [employer] MDS (myelodysplastic syndrome) (HCC) LAB MISC TEST (NOT BLOOD) Routine 03/15/2024 9:05 AM [employer] IN[employer] LAB MISC TEST (NOT BLOOD) Routine 03/15/2024 9:05 AM [employer] IN[employer] LAB MISC TEST (NOT BLOOD) Routine 03/15/2024 9:05 AM [employer] DIFFERENTIAL MANUAL AM Draw 03/15/2024 7 :53 AM [employer]CTOR LDH BLOOD Routine 03/15/2024 7:53 AM [employer] PTT [facility] AM Draw 03/15/2024 7:53 AM [employer] IN[employer] PT-INR [facility] AM Draw 03/15/2024 7:53 AM [employer] IN[employer]CTOR URIC ACID BLOOD Routine 03/15/2024 7:53 AM [employer] IN[employer]CTOR PHOSPHORUS BLOOD Routine 03/15/2024 7:53 AM [employer] IN[employer]CTOR MAGNESIUM BLOOD Routine 03/15/2024 7:53 AM [employer]CTOR COMPREHENSIVE METABOLIC PANEL AM Draw 03/15/2024 7:53 AM [employer] IN[employer]CTOR CBC W AUTO DIFFERENTIAL AM Draw 03/15/20 7:53 AM [employer] IN[employer] EKG 12-LEAD STAT 03/14/2024 12:30 PM [employer] MDS (myelodysplastic syndrome) (HCC) FLOW CYTOMETRY BLOOD PROFILE Routine 03/14/2024 10:32 AM [employer] MDS (myelodysplastic syndrome) (HCC) DIFFERENTIAL MANUAL STAT 03/13/2024 1 1:26 PM [employer] LDH BLOOD Routine 03/13/2024 11:26 PM [employer] PTT SLH Routine 03/13/2024 11:26 PM [employer] IN[employer] PT-INR [facility] Routine 03/13/2024 11:26 PM [employer]CTOR FIBRINOGEN ACTIVITY Routine 03/13/2024 1 1:26 PM [employer] IN[employer]CTOR D-DIMER Routine 03/13/2024 11:26 PM [employer] IN[employer]CTOR URIC ACID BLOOD Routine 03/13/2024 11:26 PM [employer] IN[employer]CTOR PHOSPHORUS BLOOD Routine 03/13/2024 11:2 6 PM [employer] IN[employer]CTOR MAGNESIUM BLOOD Routine 03/13/2024 11:26 PM [employer] IN[employer]CTOR COMPREHENSIVE METABOLIC PANEL STAT 03/13/2024 11:26 PM [employer] IN[employer]CTOR CBC W AUTO DIFFERENTIAL STAT 03/13/20 11:26 PM [employer] IN[employer]CTOR QUINN-RICHMOND VIRUS QUANT BLOOD STL Routine 03/13/2024 11:26 PM [employer]ING [employer] IN[employer]CTOR CYTOMEGALOVIRUS (CMV) QUANTITATIVE PLASMA Routine 03/13/2024 11:26 PM [employer] IN[employer]CTOR CHROMOSOME ANALYSIS LEUKEMIA BLD Routine 03/04/2024 4:13 PM [employer]ING [employer]CTOR MDS (myelodysplastic syndrome) (HCC) FISH PML/DANTE PANEL Routine 03/04/2024 4 :13 PM [employer] MDS (myelodysplastic syndrome) (HCC) FISH AML PANEL BLOOD OR BM RFLX PML/DANTE Routine 03/04/2024 4:13 PM [employer] IN[employer] MDS (myelodysplastic syndrome) (HCC) FISH AML+MDS PANEL BLOOD OR BONE MARROW Routine 03/04/2024 4:13 PM [employer]ING [employer] IN[employer]CTOR MDS (myelodysplastic syndrome) (HCC) MYELOID MALIGNANCIES MUTATION PNL STAT 03/04/2024 4:13 PM [employer]ING [employer]CTOR MDS (myelodysplastic syndrome) (HCC) HLA TYPING LOW/HIGH RESOLUTION DPB1 Routine 03/04/2024 4:13 PM [employer] MDS (myelodysplastic syndrome) (HCC) HLA TYPING DNA HIGH RESOLUTION DR Routine 03/04/2024 4:13 PM [employer] IN[employer]CTOR MDS (myelodysplastic syndrome) (HCC) HLA TYPING DNA HIGH RESOLUTION B Routine 03/04/2024 4:13 PM [employer] MDS (myelodysplastic syndrome) (HCC) HLA TYPING DNA HIGH RESOLUTION C Routine 03/04/2024 4:13 PM [employer] IN[employer]CTOR MDS (myelodysplastic syndrome) (HCC) HLA TYPING DNA HIGH RESOLUTION DQ Routine 03/04/2024 4:13 PM [employer] IN[employer]CTOR MDS (myelodysplastic syndrome) (HCC) HLA TYPING DNA HIGH RESOLUTION A Routine 03/04/2024 4:13 PM [employer] MDS (myelodysplastic syndrome) (HCC) HLA TYPING DNA LOW RESOLUTION DR,DQ Routine 03/04/2024 4:13 PM [employer] IN[employer]CTOR MDS (myelodysplastic syndrome) (HCC) HLA TYPING DNA LOW RESOLUTION A,B,C Routine 03/04/2024 4:13 PM [employer] MDS (myelodysplastic syndrome) (HCC) HLA TYPING DNA HIGH RES Routine 03/04/20 4:13 PM [employer] MDS (myelodysplastic syndrome) (HCC) DIFFERENTIAL MANUAL Routine 03/04/2024 4 :13 PM [employer]ING [employer]CTOR Neutropenia, unspecified type (HCC) BCR-ABL1 CML+AML PCR QUANT PNL Routine 03/04/2024 4:13 PM [employer] MDS (myelodysplastic syndrome) (HCC) CYTOMEGALOVIRUS ANTIBODY IGG BLOOD Routine 03/04/2024 4:13 PM [employer] MDS (myelodysplastic syndrome) (HCC) HEPATITIS C ANTIBODY Routine 03/04/2024 4:13 PM [employer] Neutropenia, unspecified type (HCC) HEPATITIS B SURFACE ANTIBODY Routine 03/04/2024 4:13 PM [employer] Neutropenia, unspecified type (HCC) HIV-1 HIV-2 ANTIBODY + HIV P24 AG PANEL Routine 03/04/2024 4:13 PM [employer] Neutropenia, unspecified type (HCC) ERYTHROCYTE SEDIMENTATION RATE Routine 03/04/2024 4:13 PM [employer] Neutropenia, unspecified type (HCC) C-REACTIVE PROTEIN Routine 03/04/2024 4: 13 PM [employer]CTOR Neutropenia, unspecified type (HCC) RHEUMATOID FACTOR BLOOD QUANTITATIVE Routine 03/04/2024 4:13 PM [employer] Neutropenia, unspecified type (HCC) MARLINE BLOOD SCREEN W/REFLEX TITER Routine 03/04/2024 4:13 PM [employer] Neutropenia, unspecified type (HCC) FERRITIN Routine 03/04/2024 4:13 PM [employer] Neutropenia, unspecified type (HCC) IRON + TRANSFERRIN PANEL Routine 03/04/2024 4:13 PM [employer]CTOR Neutropenia, unspecified type (HCC) TSH REFLEX FREE T4 Routine 03/04/2024 4: 13 PM [employer] Neutropenia, unspecified type (HCC) ZINC BLOOD Routine 03/04/2024 4:13 PM [employer] Neutropenia, unspecified type (HCC) COPPER BLOOD Routine 03/04/2024 4:13 PM [employer] IN[employer]CTOR Neutropenia, unspecified type (HCC) FOLATE Routine 03/04/2024 4:13 PM [employer]CTOR Neutropenia, unspecified type (HCC) VITAMIN B12 Routine 03/04/2024 4:13 PM [employer]CTOR Neutropenia, unspecified type (HCC) COMPREHENSIVE METABOLIC PANEL Routine 03/04/2024 4:13 PM [employer] Neutropenia, unspecified type (HCC) CBC W AUTO DIFFERENTIAL Routine 03/04/20 24 4:13 PM [employer] IN[employer]CTOR Neutropenia, unspecified type (HCC) HEPATITIS B CORE ANTIBODY TOTAL Routine 03/04/2024 4:13 PM [employer] Neutropenia, unspecified type (HCC) from Last 3 Months Results * (ABNORMAL) DIFFERENTIAL MANUAL (05/20/2024 9:42 AM [employer]ING [employer]CTOR) Only the most recent of15 resultswithin the time period is included. Neutrophil % 8(L) 41 - 74 % 05/20/2024 12:18 PM [employer]ING [employer] IN[employer]CTOR [facility] Lymphocyte % 39 17 - 47 % 05/20/2024 12:18 PM [facility] Monocyte % 51(H) 3 - 11 % 05/20/2024 12:18 PM [facility] Eosinophil % 2 0 - 7 % 05/20/2024 12:18 PM [facility] Neutrophil Absolute 0.07(L) 1.60 - 7.50 x10E9/L 05/20/2024 12:18 PM [facility] Lymphocyte Absolute 0.35(L) 1.00 - 4.40 x10E9/L 05/20/2024 12:18 PM [facility] Monocyte Absolute 0.46 0.15 - 1.00 x10E9/L 05/20/2024 12:18 PM [facility] Eosinophil Absolute 0.02 0.00 - 0.60 x10E9/L 05/20/2024 12:18 PM [facility] RBC Morphology REVIEWED 05/20/2024 12:18 PM [facility] Microcytosis MODERATE(A) (none) 05/20/2024 12:18 PM [facility] Schistocytes MODERATE(A) (none) 05/20/2024 12:18 PM [facility] Large Platelets PRESENT(A) (none) 12:18 PM [facility] Blood BLOOD SPECIMEN / Unknown Venipuncture / Unknown 05/20/2024 9:42 AM [employer] 05/20/2024 10:14 AM [employer] Cindy Garcia MD LAB - HEMATOLOGY ORD ERABLES [facility] [address] [place] [id number], [facility] [phone] * (ABNORMAL) CBC WITH DIFFERENTIAL (05/20/2024 9:42 AM [employer]) Only the most recent of19 resultswithin the time period is included. WBC 0.9(LL) 4.0 - 10.7 x10E9/L 05/20/2024 12:19 PM [facility] RBC Count 4.02(L) 4.30 - 5.80 x10E12/L 05/20/2024 12:19 PM [facility] Hemoglobin 11.8(L) 13.3 - 17.5 g/dL 05/20/2024 12:19 PM [facility] Hematocrit 35.1(L) 38.7 - 51.1 % 05/20/2024 12:19 PM [facility] MCV 87.3 80.0 - 98.0 fL 05/20/2024 12:19 PM [facility] MCH 29.4 26.7 - 33.6 pg 05/20/2024 12:19 PM [facility] MCHC 33.6 31.7 - 36.3 g/dL 05/20/2024 12:19 PM [facility] RDW-CV 19.2(H) 11.3 - 14.8 % 05/20/2024 12:19 PM [facility] Platelet Count 294 150 - 420 x10E9/L 05/20/2024 12:19 PM [facility] MPV 12.7(H) 7.8 - 11.4 fL 05/20/2024 12:19 PM [facility] Preliminary Absolute Neutrophil 0.11(L) 1.60 - 7.50 x10E9/L 05/20/2024 12:19 PM [facility] Blood BLOOD SPECIMEN / Unknown Venipuncture / Unknown 05/20/2024 9:42 AM [employer] 05/20/2024 10:14 AM [facility] Cindy Garcia MD LAB - HEMATOLOGY ORD ERABLES Performing Organization Address City/State/[facility] Co de Phone Number [address] [phone] [phone] * (ABNORMAL) COMPREHENSIVE METABOLIC PANEL (05/20/2024 9:42 AM [employer] IN[employer]CTOR) Only the most recent of20 resultswithin the time period is included. BUN 13 7 - 26 mg/dL 05/20/2024 10:59 AM [facility] Creatinine 1.19(H) 0.71 - 1.16 mg/dL 05/20/2024 10:59 AM [facility] Sodium 143 136 - 145 mmol/L 05/20/2024 10:59 AM [facility] Potassium 3.6 3.5 - 4.5 mmol/L 05/20/2024 10:59 AM [facility] Chloride 108(H) 98 - 107 mmol/L 05/20/2024 10:59 AM [facility] CO2 25 22 - 29 mmol/L 05/20/2024 10:59 AM [facility] Glucose 61(L) 70 - 99 mg/dL 05/20/2024 10:59 AM [facility] Calcium 9.2 8.4 - 10.2 mg/dL 05/20/2024 10:59 AM [facility] Protein Total 6.5 6.0 - 8.3 g/dL 05/20/2024 10:59 AM [facility] Albumin 3.9 3.4 - 5.0 g/dL 05/20/2024 10:59 AM [facility] Bilirubin Total 1.0 0.2 - 1.2 mg/dL 05/20/2024 10:59 AM [facility] Alkaline Phosphatase 137 40 - 150 U/L 05/20/2024 10:59 AM [facility] ALT 15 5 - 55 U/L 05/20/2024 10:59 AM [facility] AST 16 5 - 34 U/L 05/20/2024 10:59 AM [facility] Anion Gap 10 6 - 16 05/20/2024 10:59 AM [facility] BUN/Creatinine Ratio 11 7 - 23 05/20/2024 10:59 AM [facility] Osmolality Calculated 294 275 - 295 mOsm/kg 05/20/2024 10:59 AM [facility] Albumin/Globulin Ratio 1.5 1.1 - 2.3 05/20/2024 10:59 AM [facility] eGFR by CKD-EPI 62(L) >=90 mL/min/1.7 3 m2 05/20/2024 10:59 AM [facility] Blood BLOOD SPECIMEN / Unknown Venipuncture / Unknown 05/20/2024 9:42 AM [employer] 05/20/2024 10:15 AM [facility] Cindy Garcia MD LAB - CHEMISTRY ORDNatalie MONREAL [facility] [address] [place] [address], [facility] [phone] * FLOW CYTOMETRY BONE MARROW (05/15/2024 1:35 PM [employer]) Only the most recent of2 resultswithin the time period is included. Case Report Flow Cytometry Case: [id number] Authorizing Provider: Chapis Prabhakar APRN-CNP Collected: 05/15/2024 01:35 PM Ordering Location: [facility] Received: 05/15/2024 03:04 PM Pathologist: Guillermo Brown MD Specimen: Bone Marrow 05/22/2024 8:46 AM [facility] Addendum 1 This addendum is issued to report the results of minimal residual disease (MRD) flow cytometric analysis performed by the [facility], [address] [place] [address]. B one marrow aspirate - No abnormal [...] part represent peripheral blood. 05/22/2024 8:46 AM [facility] Addendum electronically signed by Angeles Rosado MD on 05/22/2024 at 8:46 AM Final Diagnosis Bone marrow, flow cytometry: - No significant B-cell, increased blast, or immature monocyte population detected 05/22/2024 8:46 AM [facility] Flow Cytometry Interpretation Viability: 75% B-cells: no significant population T-cells: not increased Blasts: not increased, ~1.5% represent CD34+ myeloblasts, ~23% of overall events are mature CD14+/CD64+ monocytes with no immunophenotypic aberrancies. MRD sent: Yes A bone marrow aspirate smear prepared from the flow cytometry specimen has been reviewed for cloth tester quality purposes. 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 A-2 Flow CD10 A-3 Flow CD13 A-5 Flow CD20 A-11 Flow CD2 A-13 Flow CD14 A-16 Flow CD117 A-17 Flow CD11b A-18 Flow CD11c A-1 Flow CD5 A-4 Flow CD19 A-6 Flow CD33 A-7 Flow CD34 A-8 Flow CD45 A-12 Flow CD7 A-14 Flow CD56 A-15 Flow CD64 A-9 [place]+CD19+ A-10 Lambda+CD19+ A-19 Flow HLA-DR 05/22/2024 8:46 AM [facility] Pathologist Location at [facility] 05/22/2024 8:46 AM [facility] Disclaimer Test performed at [facility], [address] [place] [address], [id number]. *The established laboratory minimum viability is 70%. [...] high complexity clinical testing. 05/22/2024 8:46 AM [facility] Embedded Images 8:46 AM [facility] Pathology/Cytolo gy BONE MARROW SPECIMEN / Unknown Collection / Unknown 05/15/2024 1:35 PM [employer] 05/15/2024 3:04 PM [employer] Chapis JOLLEY LAB - PATHOLOGY/CY TOLOGY ORDERABLES [facility] [address] [place] [address], [facility] [phone] * BONE MARROW BIOPSY (STL) (05/15/2024 1:35 PM [employer]) Only the most recent of2 resultswithin the time period is included. Case Report Bone Marrow Patholog y Report Case: [id number] Authorizing Provider: Chapis Prabhakar APRN-CNP Collected: 05/15/2024 01:35 PM Ordering Location: [facility] Received: 05/15/2024 03:04 PM Pathologist: Guillermo Brown MD Specimens: A) - Bone Marrow Clot B) - Bone Marrow Core C) - Bone Marrow Aspirate D) - Blood Peripheral 05/16/2024 3:02 PM [facility] Final Diagnosis Bone marrow, aspirate, clot section, and core biopsy: - Normocellular marrow with marked erythroid hyperplasia, myeloid hypoplasia and monocytic hyperplasia. - No overt acute leukemia seen. - See description. Peripheral blood smear: - Bicytopenia. - See description. 05/16/2024 3:02 PM [facility] Comment The significance of the monocytosis is unclear. By flow cytometry, these appear mature. These likely represent reactive cells. Minimal residual disease flow cytometry is pending. Immunohistochemistry is performed to assess staining cells in an architectural context: CD34 is negative for increased blasts (<2% of marrow cellularity), CD117 highlights early erythroid precursor cells. 05/16/2024 3:02 PM [facility] Peripheral Smear Description RBC: normocytic anemia. WBC: leukopenia with absolute neutropenia and lymphopenia. Platelets: normal in number. 05/16/2024 3:02 PM [facility] Bone Marrow Aspirate Differential count [...] stain): no ring sideroblasts. 05/16/2024 3:02 PM [facility] Bone Marrow Core Biopsy and [...] similar to core biopsy. 05/16/2024 3:02 PM [facility] Flow Cytometry Summary Bone marrow, flow cytometry ([id number]): - No significant B-cell, increased blast, or immature monocyte population detected 05/16/2024 3:02 PM [facility] Clinical History AML. 05/16/2024 3:02 PM [facility] Gross Description The requisition and [...] in cassette B1. /VIVIAN 05/16/2024 3:02 PM [facility] Pathologist Location at [facility] 05/16/2024 3:02 PM [facility] Disclaimer The performance characteristics of all immunohistochemical and indirect immunofluorescence stains (if any) cited in this report were determined by the Histopathology Laboratory of [facility]. Some of these tests were developed [...] the attending (teaching) pathologist. 05/16/2024 3:02 PM [employer] [facility] Embedded Images 05/16/2024 3:02 PM [employer] IN[employer]CTOR [facility] Pathology/Cytology PERIPHERAL BLOOD / Unknown Collection / Unknown 05/15/2024 1:35 PM [employer] IN[employer] 05/15/2024 3:04 PM [employer] IN[employer] Miscellaneous samples (specimen) BONE MARROW SPECIMEN / Unknown 05/15/2024 1:35 PM [employer] IN[employer]CTOR 05/15/2024 3:04 PM [employer] IN[employer]CTOR Miscellaneous samples (specimen) SPECIMEN FROM BONE MARROW OBTAINED BY ASPIRATION / Unknown 05/15/2024 1:35 PM [employer] IN[employer]CTOR 05/15/2024 3:04 PM [employer] IN[employer] Miscellaneous samples (specimen) PERIPHERAL BLOOD / Unknown 05/15/2024 1:35 PM [employer] IN[employer]CTOR 05/15/2024 3:49 PM [employer] IN[employer]CTOR Chapis JOLLEY LAB - PATHOLOGY/CY TOLOGY ORDERABLES Performing Organization Address [facility] Co de Phone Number [facility] [address] [phone] * LAB MISC TEST (NOT BLOOD) (05/15/2024 1:35 PM [employer]ING [employer] IN[employer]) Only the most recent of4 resultswithin the time period is included. Test Name Julia xT + xR 05/22/2024 4:32 PM [employer]ING [employer] IN[employer]CTOR [facility] NON INTERF Test Result See Scanned Report 05/22/2024 4:32 PM [employer] IN[employer]CTOR [facility] NON INTERF Comment Ref Lab [facility]us 05/22/2024 4:32 PM [employer] IN[employer]CTOR [facility] NON INTERF Other BONE MARROW SPECIMEN / Unknown Collection / Unknown 05/15/2024 1:35 PM [employer] IN[employer]CTOR 05/15/2024 4:01 PM [employer] IN[employer]CTOR Chapis JOLLEY LAB - BODY FLUID O RDERABLES [facility] NON INTERF [address] [place] [address], [facility] [phone] * CHROMOSOME ANALYSIS BONE MARROW PANEL (05/15/2024 1:35 PM [employer] IN[employer]CTOR) Only the most recent of2 resultswithin the time period is included. [facility] Chromosome Analysis Bone Marrow See Note Normal 05/22/2024 1:12 PM [employer]IVING [employer] INSTRUCTOR [facility] ([facility]) Comment: Test Performed: Chromosome Analysis Specimen [...] reviewed and approved by Oliver Muhammad, PhD, [facility] This result has been reviewed and approved by Emily Street MD A portion of this analysis was performed at the following location(s): [facility] Site CG-KS#2 [facility] CG-IN#1 INTERPRETIVE INFORMATION: Chromosome Analysis, Bone Marrow This test was developed and its performance characteristics determined by [facility] It has not been cleared or approved by the [place] Food and Drug Administration. This test was performed in a CLIA certified laboratory and is intended for clinical purposes. [facility] Chromosome Analysis Bone Marrow See Note 05/22/2024 1:12 PM [employer]IVING S[employer]OL INSTRUCTOR [facility] ([facility]) Comment: Authorized individuals can access the [employer]ilt[employer] Enhanced Report with an [employer] Connect account using the following link. Your local lab can assist you in obtaining the patient report if you don't have a Connect account. [email or web address] Performed By: [facility] [address] [place] [address] Comb Winder: Uche Morley MD, PhD CLIA Number: [id number] Bone marrow BONE MARROW SPECIMEN / Unknown 05/15/2024 1:35 PM [employer] IN[employer]CTOR 05/15/2024 3:04 PM [employer] IN[employer]CTOR Chapis Aki SPECIALTY TRANSFORMER ASSEMBLER-EXTENSION SERVICE SPECIALIST LAB - PATHOLOGY/CY TOLOGY ORDERABLES [facility] ([facility]) [address] * EKG 12-LEAD - HOSPITAL PERFORMED (04/22/2024 1:27 PM [employer] INSTRUCTOR) Only the most recent of3 resultswithin the time period is included. Ventricular Rate 61 BPM [facility] MUSE Atrial Rate 61 BPM [facility] MUSE P-R Interval 112 ms [facility] MUSE QRS Duration ms 126 ms [facility] MUSE Q-T Interval ms 476 ms [facility] MUSE QTC Calculation (Bezet) 479 ms [facility] MUSE Calculated P [place] 84 degrees SL MUSE Calculated R [place] 36 degrees SL MUSE Calculated T [place] -163 degrees [facility] MUSE Interpretation EKG NORMAL SINUS RHYTHM NON-SPECIFIC INTRA-VENTRICULA R CONDUCTION BLOCK T WAVE ABNORMALITY, CONSIDER INFERIOR ISCHEMIA T WAVE ABNORMALITY, CONSIDER ANTEROLATERAL ISCHEMIA ABNORMAL ECG WHEN COMPARED WITH ECG OF 18-MAR-2024 13:48, NO SIGNIFICANT CHANGE WAS FOUND Confirmed by HANSEL VASQUES MD ([id number]) on 04/23/2024 8:31:57 AM [facility] MUSE 04/22/2024 1:27 PM [employer] 04/23/2024 8:31 AM [employer] Cindy Garcia MD ECG ORDERABLES [facility] MUSE * QUANTIFERON-TB GOLD PLUS 4-TUBE (04/16/2024 1:43 PM [employer]) QuantiFERON Mitogen Minus NIL 9.09 IU/mL 04/18/2024 11:11 PM [employer] [facility] ([facility]) QuantiFERON Nil Value 0.04 IU/mL 04/18/2024 11:11 PM [employer] [facility] ([facility]) QuantiFERON Plus TB1 Minus NIL 0.00 <=0.34 IU/mL 04/18/2024 11:11 PM [employer] [facility] ([facility]) QuantiFERON Plus TB2 Minus NIL 0.00 <=0.34 IU/mL 04/18/2024 11:11 PM [employer] [facility]) QuantiFERON-TB Gold Plus Negative Negative 04/18/2024 11:11 PM 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 Performed By: [facility] [address] [place] [address] Comb Winder: Uche Morley MD, PhD CLIA Number: [id number] Blood BLOOD SPECIMEN / Unknown Venipuncture / Unknown 04/16/2024 1:43 PM DRIVING SCHOOL INSTRUCTOR 04/16/2024 2:03 PM DRIVING SCHOOL INSTRUCTOR Cindy Garcia MD LAB - CHEMISTRY CHELI MONREAL Performing Organization Address City/[facility]/ZIP Co de Phone Number [facility] ([facility]) [address], [place] [address] * LDH BLOOD (04/16/2024 10:26 AM DRIVING SCHOOL INSTRUCTOR) Only the most recent of13 resultswithin the time period is included. LDH Total 197 125 - 243 Units/L 04/16/2024 11:14 AM DRIVING SCHOOL INSTRUCTOR [facility] Blood BLOOD SPECIMEN / Unknown Venipuncture / Unknown 04/16/2024 10:26 AM DRIVING SCHOOL INSTRUCTOR 04/16/2024 10:48 AM DRIVING SCHOOL INSTRUCTOR Cindy Garcia MD LAB - CHEMISTRY CHELI MONREAL Performing Organization Address City/[facility] Co de Phone Number [place] [phone], [facility] [phone] * IR Tim Cath Insert (04/11/2024 9:45 AM DRIVING SCHOOL INSTRUCTOR) Anatomical Region Laterality Modality Chest X-Ray Angiograph y 04/11/2024 9:19 AM DRIVING SCHOOL INSTRUCTOR Impressions 04/11/2024 3:43 PM DRIVING SCHOOL INSTRUCTOR Impression: Successful placement of a single lumen 8 Greenlandic x 23 cm chest power port via [...] evaluation, please review the evaluation forms in [facility]. For details on monitored clinical parameters during the intra-service sedation time, please review the procedure nurse documentation in [facility]. Report dictated by Eduardo Coleman MD, PhD (vice president of customer service). > Dictated by Eduardo Coleman MD (Technical Communication Teacher) 04/11/2024 9:19 AM IDavian DO have personally reviewed and interpreted this examination/study. 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 Operators: 1.Dr. Davian Marshall, Attending Physician 2.Dr. dEuardo Coleman, Resident Physician Anesthesia: 1.Local anesthesia - 15 mL of 2% lidocaine with epinephrine 2.Intravenous conscious sedation - Versed 2 mg and Fentanyl 100 mcg Procedure: 1.Ultrasound-guided access of the right internal jugular vein. 2.Creation of subcutaneous pocket and subcutaneous tunnel on the right chest. 3.Fluoroscopy-guided placement of single lumen 8 Greenlandic x 23 cm chest power port via [...] draped in the usual sterile manner. A gas turbine assembler film of chest was obtained, which was [...] DATE/TIME OF EXAM: 04/11/2024 5:49 AM, LOCATION [facility] INDICATION: C92.00: Acute myeloid leukemia [...] chest. 3.Fluoroscopy-guided placement of single lumen 8 Greenlandic x 23 cm chestpower port via the [...] and draped inthe usual sterile manner. A gas turbine assembler film of chest was obtained, which was [...] the procedure well [facility]. There were no immediate complicationsassociated with the procedure. Impression: Successful placement of a single lumen 8 Greenlandic x 23 cmchest power port via the [...] intravenously in my presence, and monitored by [facility] as an independent trained observer [...] evaluation, please review the evaluation forms in [facility]. For details on monitored clinical parameters during the intra-service sedation time, please review the procedure nurse documentation in [facility]. Report dictated by Eduardo Coleman MD, PhD (vice president of customer service). > Dictated by Eduardo Coleman MD (Technical Communication Teacher) 04/11/2024 9:19AM Davian Post DO have personally reviewed and interpreted this examination/study. > Interpreting Provider: Davian Marshall DO on 04/11/2024 3:43 PM Cindy Garcia MD IR ORDERABLES * PT-INR [facility] (04/11/2024 7:20 AM DRIVING SCHOOL INSTRUCTOR) Only the most recent of11 resultswithin the time period is included. PT 14.6 12.1 - 14.8 Seconds 04/11/2024 7:56 AM [facility] INR 1.2 See Comment 04/11/2024 7:56 AM [facility] Comment:The suggested therap eutic range for standard coumadin (warfarin) therapy is an INR of 2.0-3.0. For high-risk patients (Mechanical Mitral Valve Prosthesis, etc.), the suggested prophylactic therapeutic range is an INR of 2.5-3.5. Blood BLOOD SPECIMEN / Unknown Venipuncture / Unknown 04/11/2024 7:20 AM DRIVING SCHOOL INSTRUCTOR 04/11/2024 7:23 AM DRIVING SCHOOL INSTRUCTOR Cindy Garcia MD LAB - COAGULATION OR DERABLES Performing Organization Address City/[facility]/ZIP Co de Phone Number [facility] [address] [place] [address], [facility] [phone] * URIC ACID BLOOD (04/01/2024 3:12 PM DRIVING SCHOOL INSTRUCTOR) Only the most recent of13 resultswithin the time period is included. Uric Acid 4.0 3.5 - 7.2 mg/dL 04/01/2024 5:52 PM DRIVING SCHOOL INSTRUCTOR [facility] Blood BLOOD SPECIMEN / Unknown Lab Venipuncture / Unknown 04/01/2024 3:12 PM DRIVING SCHOOL INSTRUCTOR 04/01/2024 5:30 PM DRIVING SCHOOL INSTRUCTOR Cindy Garcia MD LAB - CHEMISTRY ORDE RABLES Performing Organization Address [facility]/ZIP Co de Phone Number [facility] [address] [place] [phone], [facility] [phone] * ERYTHROPOIETIN (04/01/2024 3:12 PM DRIVING SCHOOL INSTRUCTOR) Erythropoietin 22 4 - 27 mU/mL 04/02/2024 11:36 AM DRIVING SCHOOL INSTRUCTOR [facility] ([facility]) Comment: INTERPRETIVE INFORMATION: Erythropoietin Normal serum [...] may benefit from therapy with recombinant EPO ([facility] [phone],1989). Performed By: [facility] [address] [place] [address] Comb Winder: Uche Morley MD, PhD CLIA Number: [id number] Blood BLOOD SPECIMEN / Unknown Lab Venipuncture / Unknown 04/01/2024 3:12 PM DRIVING SCHOOL INSTRUCTOR 04/01/2024 3:22 PM DRIVING SCHOOL INSTRUCTOR Cindy Garcia MD LAB - CHEMISTRY CHELI MONREAL [facility]) [address] [place] [address], [facility] * SOLUBLE TRANSFERRIN RECEPTOR (04/01/2024 3:12 PM DRIVING SCHOOL INSTRUCTOR) [facility] Soluble Transferrin Receptor 3.3 2.2 - 5.0 mg/L 04/02/2024 9:13 PM DRIVING SCHOOL INSTRUCTOR [facility] [employer] ([facility]) Comment: INTERPRETIVE INFORMATION: Soluble Transferrin Receptor [...] Fe Status High Normal High Performed By: [facility] [address] [place] [address] Comb Winder: Uche Morley MD, PhD CLIA Number: [id number] Blood BLOOD SPECIMEN / Unknown Lab Venipuncture / Unknown 04/01/2024 3:12 PM DRIVING SCHOOL INSTRUCTOR 04/01/2024 3:22 PM DRIVING SCHOOL INSTRUCTOR Cindy Garcia MD LAB - CHEMISTRY ORDNatalie MONREAL Performing Organization Address [facility]/ZIP Co de Phone Number [facility] ([facility]) [address] [place] [phone] [place] [address] * PHOSPHORUS BLOOD (04/01/2024 3:12 PM DRIVING SCHOOL INSTRUCTOR) Only the most recent of13 resultswithin the time period is included. Phosphorus 2.9 2.8 - 5.1 mg/dL 04/01/2024 5:52 PM DRIVING SCHOOL INSTRUCTOR [facility] Blood BLOOD SPECIMEN / Unknown Lab Venipuncture / Unknown 04/01/2024 3:12 PM DRIVING SCHOOL INSTRUCTOR 04/01/2024 5:30 PM DRIVING SCHOOL INSTRUCTOR Cindy Garcia MD LAB - CHEMISTRY ORDNatalie MONREAL Performing Organization Address City/[facility]/ZIP Co de Phone Number [address] [phone], [facility] [phone] * MAGNESIUM BLOOD (04/01/2024 3:12 PM DRIVING SCHOOL INSTRUCTOR) Only the most recent of13 resultswithin the time period is included. Magnesium 2.1 1.6 - 2.6 mg/dL 04/01/2024 4:25 PM DRIVING SCHOOL INSTRUCTOR [facility] Comment:Hemolysis detected i n this specimen. Hemolysis is known to cause elevations in this analyte. Caution should be exercised in the interpretation of this result. Recommend repeat testing if clinically indicated. Blood BLOOD SPECIMEN / Unknown Lab Venipuncture / Unknown 04/01/2024 3:12 PM DRIVING SCHOOL INSTRUCTOR 04/01/2024 3:36 PM DRIVING SCHOOL INSTRUCTOR Cindy Garcia MD LAB - CHEMISTRY CHELI MONREAL [address] [address], [facility] [phone] * LAB RESULTS ORDER (03/25/2024) 03/25/2024 Narrative 03/25/2024 Ordered by an unspecified provider. Scanned Document LAB - THERAPEUTIC DR UG MONITORING ORDERABLES * PTT [facility] (03/23/2024 12:25 AM DRIVING SCHOOL INSTRUCTOR) Only the most recent of10 resultswithin the time period is included. APTT 35.4 23.0 - 38.4 Seconds 03/23/2024 1:31 AM DRIVING SCHOOL INSTRUCTOR [facility] Comment:Suggested therapeuti c range for full dose I.V. unfractionated heparin therapy for venous thromboembolism is 71 to 109 seconds. Blood BLOOD SPECIMEN / Unknown Venipuncture / Unknown 03/23/2024 12:25 AM DRIVING SCHOOL INSTRUCTOR 03/23/2024 1:05 AM DRIVING SCHOOL INSTRUCTOR Ghanshyam Dewey PA-C LAB - COAGULATION OR DERABLES Performing Organization Address City/[facility]/ZIP Co de Phone Number [address] [address], [facility] [phone] * PATHOLOGY PERIPHERAL SMEAR REVIEW (03/18/2024 8:33 AM DRIVING SCHOOL INSTRUCTOR) Path Review Confirmed 03/18/2024 2:44 PM DRIVING SCHOOL INSTRUCTOR [facility] Blood BLOOD SPECIMEN / Unknown Lab Venipuncture / Unknown 03/18/2024 8:33 AM DRIVING SCHOOL INSTRUCTOR 03/18/2024 8:46 AM DRIVING SCHOOL INSTRUCTOR Narrative [facility] - 03/18/2024 2:44 PM DRIVING SCHOOL INSTRUCTOR A rare blast seen. Ghanshyam Dewey PA-C LAB - PATHOLOGY/CYTO LOGY ORDERABLES Performing Organization Address City/[facility]/ZIP Co de Phone Number [address] [phone] [phone] * ECHO COMPLETE W CONTRAST (03/15/2024 1:47 PM DRIVING SCHOOL INSTRUCTOR) IVSd 2D 1.314 cm SSM CV FUJ [...] PACS LVOT VTI 32.536 cm [facility] CV [facility] I PACS RVIDd 3.985 cm [facility] CV [facility] I PACS RVOT pk lawanda 69.928 cm/s [facility] CV F UJI PACS RVOT VTI 14.149 cm [facility] CV [facility] I PACS LA size 3.887 cm SSM CV FUJ I PACS LA vol BP 103.263 ml [facility] CV [facility] I PACS RA area 17.733 cm [facility] CV FUJI PACS AV pk lawanda regurg 205.453 cm/s [facility] AR VTI 104.216 cm [facility] [...] Region Laterality Modality Ultrasound 03/15/2024 2:04 PM DRIVING SCHOOL INSTRUCTOR Narrative 03/15/2024 5:17 PM DRIVING SCHOOL INSTRUCTOR Summary * The left ventricle is normal [...] 2:04 PM Patient Status: I/P Study Site: [facility] Primary Location: [facility] EStudy Info Technical Quality: Adequate Exam [...] Attending Physician: Ted Soler Fellow: Josh Knight Market Analyst: Dhruv Sorto Left Ventricle Left ventricular [...] 2:04 PM Patient Status: I/P Study Site: [facility] Primary Location: [facility] EStudy Info Technical Quality: Adequate Exam [...] Attending Physician: Ted Soler Fellow: Josh Knight Market Analyst: Dhruv Sorto Left Ventricle Left ventricular [...] BLOOD OR BONE MARROW (03/15/2024 9:05 AM DRIVING SCHOOL INSTRUCTOR) MDS Panel by Fish See Note Normal 024 11:26 AM DRIVING SCHOOL INSTRUCTOR [facility] ([facility]) Comment: Test Performed: Myelodysplastic Syndrome (MDS) Panel by FISH (FISH MDS P) Specimen Type: Bone Marrow Indication for Testing: Myelodysplastic syndrome, unspecified RESULT Normal FISH Result Deletion 5q: not detected Monosomy 7: not detected Deletion 7q: not detected Trisomy 8: not detected Deletion 20q: not detected INTERPRETATION There was no evidence of deletion 5q31, monosomy 7, deletion 7q31, trisomy 8, or deletion 94p16-w00.1. This analysis was performed with the MDS panel probes D5S23/EGR1, D7Z1/Z6T172, CEP8 ([employer]), and Del(20q) ([employer]). A total of 200 cells were scored for each probe. Cytogenomic Nomenclature (ISCN): nuc nereyda(D5S23,EGR1,D7Z1,F3C458,D8Z2,A19Z740,MYBL2)x2[200' This result has been reviewed and approved by Nabila Gonzalez, PhD, [facility] A portion of this analysis was performed at the following location(s): [facility]) Site CG-WA#2 INTERPRETIVE INFORMATION: MDS Panel by FISH This test was developed and its performance characteristics determined by [facility] ([facility]). It has not been cleared or approved by the US Food and Drug Administration. This test was performed in a CLIA certified laboratory and is intended for clinical purposes. EER MDS Fish Panel See Note 2023 11:26 AM DRIVING SCHOOL INSTRUCTOR [facility] ([facility]) Comment: Authorized individuals can access the Philtro Enhanced Report using the following link: [email or web address] Performed By: [facility] ([facility]) [address] [place] [address] Comb Winder: Uche Morley MD, PhD CLIA Number: [id number] Other BONE MARROW SPECIMEN / Unknown Collection / Unknown 03/15/2024 9:05 AM DRIVING SCHOOL INSTRUCTOR 03/15/2024 9:30 AM DRIVING SCHOOL INSTRUCTOR Rodo Perez MD LAB - PATHOLOG Y/CYTOLOGY ORDERABLES [facility] ([facility]) [address] [place] [phone], [facility] * FISH AML PANEL BLOOD OR BM RFLX PML/DANTE (03/15/2024 9:05 AM DRIVING SCHOOL INSTRUCTOR) Only the most recent of2 resultswithin the time period is included. [facility] FISH AML Panel See Note Normal 03/25/2024 10:34 AM DRIVING SCHOOL INSTRUCTOR [facility] ([facility]) Comment: Test Performed: Acute Myeloid Leukemia Panel by FISH (FISHAML) Specimen Type: Bone Marrow Indication for Testing: Myelodysplastic syndrome, unspecified RESULT Normal FISH Result inv(3) or t(3;3) GATA2::MECOM Fusion: not detected Deletion 5q: not detected Monosomy 7: not detected Deletion 7q: not detected t(8;21) RUNX1::EFXW2P2 Fusion: not detected 11p15 (NUP98) Rearrangement: not detected 11q23 (KMT2A) Rearrangement: not detected inv(16) or t(16;16) CBFB::MYH11 Fusion: not detected INTERPRETATION There was no evidence of GATA2::MECOM (also known as RPN1-EVI1) fusion due to 3q21/3q26.2 inversion or translocation, deletion 5q31, monosomy 7, deletion 7q31, RUNX1::WEDO6Q4 fusion due to translocation (8;21)(q21.3;q22), 11p15 (NUP98) rearrangement, 11q23 KMT2A (MLL) rearrangement, or CBFB::MYH11 fusion due to either 16p13.1/16q22 inversion or translocation. This analysis was performed with the AML panel probes RPN1/MECOM, D5S23/EGR1, D7Z1/Y9E694, RUNX1/WALA8X6 ([employer]), NUP98 and CBFB-MYH11 ([employer]), and MLL (KMT2A) ([employer]). A total of 200 cells were scored for each probe. Cytogenomic Nomenclature (ISCN): nuc nereyda(RPN1,MECOM,D5S23,EGR1,D7Z1,Z5G067,PJRS4Z0,NUP98,KMT2A,MYH11,CBF B,RUNX1)x2[200' This result has been reviewed and approved by Mundo Mejia, PhD, [facility] A portion of this analysis was performed at the following location(s): [facility] ([facility]) Site -LA#1 INTERPRETIVE INFORMATION: AML Panel by FISH This test was developed and its performance characteristics determined by [facility] ([facility]). It has not been cleared or approved by the US Food and Drug Administration. This test was performed in a CLIA certified laboratory and is intended for clinical purposes. EER AML Panel by FISH See Note 03/25/2024 10:34 AM DRIVING SCHOOL INSTRUCTOR [facility] ([facility]) Comment: Authorized individuals can access the Philtro Enhanced Report using the following link: [email or web address] Performed By: [facility] ([facility]) [address] [place] [address] Comb Winder: Uche Morley MD, PhD CLIA Number: [id number] Other BONE MARROW SPECIMEN / Unknown Collection / Unknown 03/15/2024 9:05 AM DRIVING SCHOOL INSTRUCTOR 03/15/2024 9:30 AM DRIVING SCHOOL INSTRUCTOR Rodo Perez MD LAB - PATHOLOG Y/CYTOLOGY ORDERABLES [facility]) [address] * MYELOID MALIGNANCIES MUTATION PNL (03/15/2024 9:05 AM DRIVING SCHOOL INSTRUCTOR) Only the most recent of2 resultswithin the time period is included. Interpretation Myeloid Malignancy PNL See Note 03/28/2024 2:06 PM [facility] ([facility]) Comment: Myeloid Malignancies Mutation Panel NGS Submitted diagnosis or diagnosis under consideration for variant interpretation: Myelodysplastic syndrome, unspecified Note: Prior NGS testing performed on this patient (most recent [facility] accession [id number]) was reviewed in conjunction with the current case to compare molecular variants reported. The previously reported molecular variants DNMT3A, IDH1, and CUX1 are again detected in the current study. In addition, new molecular variants in STAG2, BCOR, JAK2, and CEBPA are now detected. TIER 1: Variants of Known Clinical Significance in Hematologic Malignancies 1. IDH1 c.394C>A, p.Buq190Aiw ([id number]) VAF: 38.4% IDH1 encodes an enzyme that catalyzes the conversion of isocitrate to alpha-ketoglutarate in the citric acid cycle (23). Somatic mutations of IDH1 are found in 4-12% of patients with myelodysplastic syndrome (MDS).This mutation has been reported in hematologic malignancies (4). The prognostic significance of mutated IDH1 in MDS is uncertain (20) (27) (7) (14) (19) (32). 2. DNMT3A c.2206C>T, p.Odq522Sww ([id number]) VAF: 42.2% DNMT3A encodes a DNA [...] stem cell transplantation (2). 3. DNMT3A c.2407A>G, p.Ceh048Epj ([id number]) VAF: 38.8% This mutation has also been reported in hematologic malignancies (4). 4. JAK2 c.1849G>T, p.Jhw565Bnh (NM_[id number]) VAF: 14.4% JAK2 encodes a non-receptor protein tyrosine kinase that regulates STAT exceptional children teacher assistant factors in response to cytokine receptor signaling (13). JAK2 mutations have been reported in 3-6% of patients with MDS (6) (15) (31). This JAK2 mutation (p.Rcc219Dhr) has also been reported in approximately 10-25% of patients with myelodysplastic/myeloproliferative neoplasms (MDS/MPN) (31) (21). This particular JAK2 mutation occurs in the pseudokinase (JH2) domain and leads to activation of the NOLAN-STAT pathway signaling. The prognostic significance of JAK2 mutations in MDS is unclear (6). 5. STAG2 c.1840C>T, p.Hwy693* ([id number]) VAF: 31.7% STAG2 encodes a subunit [...] unmutated cohesin genes (29). 6. BCOR c.3649C>T, p.Dca1193* ([id number]) VAF: 9.6% BCOR encodes a transcriptional corepressor that interacts with BCL-6 and histone deacetylases (HDACs) (5) (12). Mutations in BCOR are seen in 4% of patients with MDS (5) (11). BCOR mutations in MDS are often frameshift and nonsense mutations that result in rjgh-fe-symgrdwm (5) (11). This mutation is predicted to alter the normal function of BCOR. BCOR mutations are associated with a higher incidence of AML transformation in MDS patients and shorter overall survival in MDS patients (5) (11) (16). 7. BCOR c.905_638del, p.Rkx139Goelh*3 ([id number]) VAF: 6.2% This mutation is also predicted to alter the normal function of BCOR. TIER 2: Variants of Unknown Clinical Significance in Hematologic Malignancies 1. CEBPA c.1074_*9del, p.*359Cysext*58 (NM_[id number]) VAF: 4.7% CEBPA encodes a protein that is a member of the basic region leucine zipper family of exceptional children teacher assistant factors (18). Somatic mutations of CEBPA are [...] if any, is uncertain. 2. CUX1 c.3085G>A, p.Ohn2927Fzh (NM_[id number]) VAF: 44.8% This variant has been rarely reported in hematologic malignancies (1) (10), to the best of our knowledge. References 1: Montejo-Mistry P, Jalenta B, Zhanna CLARK et al, Assessment of Minimal Residual Disease by Next Generation Sequencing in Peripheral Blood as a Complementary Tool for Personalized Transplant Monitoring in Myeloid Neoplasms. J Clin Med 2020. PMID:[id number] 2: Virginie R, Juan HERNANDEZ, Ulises Kim et al, Somatic mutations predict poor outcome in patients with myelodysplastic syndrome after hematopoietic stem-cell transplantation. J Clin Oncol 2014. PMID:36907087 3: cBioPortal: http://www.cbioportal.org/ 4: COSMIC: https://cancer.vipin.ac.uk/cosmic 5: Braulio Mason, Yu V, Nagata Y et al, BCOR and BCORL1 mutations in myelodysplastic syndromes and related disorders. Blood 2013. PMID:44883304 6: Bill M, Jennifer C, Víctor L et al, JAK2 Mutations Are Rare and Diverse in Myelodysplastic Syndromes: Case Series and Review of the Literature. Hematol Rep 2022. PMID:71493325 7: Jahaira GRAY, Kamla Estrada, Mary F et al, IDH1 and IDH2 mutations in myelodysplastic syndromes and role in disease progression. Leukemia 2016. PMID:08340889 8: Asiya Post, Day Rubin, Lenin MURPHY et al, Frequency, onset and clinical impact of somatic DNMT3A mutations in therapy-related and secondary acute myeloid leukemia. Haematologica 2012. PMID:66776454 9: Nuha Broussard, Idania Amador, Luanne Payne et al, CEBPA polymorphisms and mutations in patients with acute myeloid leukemia, myelodysplastic syndrome, multiple myeloma and non-Hodgkin's lymphoma. Blood Cells Mol Dis 2008. PMID:01054975 10: Cassandra B, Cornell M, Alexis A et al, DNA methylation epitypes highlight underlying developmental and disease pathways in acute myeloid leukemia. Genome Res 2020. PMID:29910265 11: Ivan Barcenas, Jenna Estrada, Alondra DEMPSEY et al, Whole-exome sequencing identifies somatic mutations of BCOR in acute myeloid leukemia with normal karyotype. Blood 2011. PMID:08452761 12: Lin RUEDA, Yashira W, Darcie E et al, BCoR, a novel corepressor involved in BCL-6 repression. Genes Dev 2000. PMID:02003007 13: Fabian SS, Jen SJ, Amandeep LR et al, Nolan/STAT pathways in cytokine signaling and myeloproliferative disorders: approaches for targeted therapies. Genes Cancer 2010. PMID:98175480 14: Jose J Broussard, Charity Barcenas, Grayson L et al, Mutations of IDH1 and IDH2 genes in early and accelerated phases of myelodysplastic syndromes and MDS/myeloproliferative neoplasms. Leukemia 2010. PMID:39505268 15: Malaika M, Catherine Rubin, Ahsan W et al, Molecular analysis of myelodysplastic syndrome with isolated deletion of the long arm of chromosome 5 reveals a specific spectrum of molecular mutations with prognostic impact: a study on 123 patients and 27 genes. Haematologica 2017. PMID:08564040 16: Gregoria BAR, Meliton T, Valerie M et al, Spectrum and prognostic relevance of pile driver operator gene mutations in acute myeloid leukemia. Blood 2016. PMID:03504019 17: NicolMel Waldron, Milton P et al, Dominant-negative mutations of CEBPA, encoding CCAAT/enhancer binding protein-alpha (C/EBPalpha), in acute myeloid leukemia. Yusra Emely 2001. PMID:35273339 18: Mel Hughes, Complexity of CEBPA dysregulation in human acute myeloid leukemia. Clin Cancer Res 2009. PMID:95083208 19: Nargis Estrada, Jose M, Hugh L et al, Clinical and biological implications of pile driver operator mutations in myelodysplastic syndromes. Blood 2013. PMID:66894021 20: Eileen MURPHY, Rajinder CHRISTY, Juju OTERO et al, Differential prognostic effect of IDH1 versus IDH2 mutations in myelodysplastic syndromes: a [facility] study of 277 patients. Leukemia 2012. PMID:[id number] 21: Eileen MURPHY, George TL, Genomics of myelodysplastic syndrome/myeloproliferative neoplasm overlap syndromes. Hematology Am Soc Hematol Educ Program 2019. PMID:[id number] 22: Marty C, Malika C, Heather N et al, Favorable prognostic significance of CEBPA mutations in patients with de elinor acute myeloid leukemia: a study from the Acute Leukemia [place] [employer] (JOSE). Blood 2002. PMID:[id number] 23: Bulmaro BENTON, Josse H, Isocitrate dehydrogenase 1 and 2 mutations in cancer: alterations at a crossroads of cellular metabolism. J Natl Cancer Inst 2010. PMID:[id number] 24: Jose A, Ivan V, Yudi U et al, [place] analysis of DNMT3A mutations in hematological malignancies. Leukemia 2013. PMID:[id number] 25: Kim LANZA, Lisa-Wahab O, Arnulfo REINOSO et al, The role of mutations in epigenetic regulators in myeloid malignancies. Yusra Rev Cancer 2012. PMID:[id number] 26: Robby F, Hubert ISSA, Efrem M et al, CEBPA mutations in 4708 patients with acute myeloid leukemia: differential impact of bZIP and TAD mutations on outcome. Blood 2021. PMID:[id number] 27: Roverto Richmond, Sam Lynn et al, IDH1 mutations in patients with myelodysplastic syndromes are associated with an unfavorable prognosis. Haematologica 2010. PMID:[id number] 28: Lisa Richmond, Bro Valdivia et al, Rare occurrence of DNMT3A mutations in myelodysplastic syndromes. Haematologica 2011. PMID:[id number] 29: Josey S, Liam AD, Joan H et al, Genetic alterations of the cohesin complex genes in myeloid malignancies. Blood 2014. PMID:[id number] 30: Barrett MERRITT, Tono Stroud, Jossue Amador et al, Recurrent DNMT3A mutations in patients with myelodysplastic syndromes. Leukemia 2011. PMID:[id number] 31: Lawrence Z, Juan Diego B, Comparison and Implications of Mutational Profiles of Myelodysplastic Syndromes, Myeloproliferative Neoplasms, and Myelodysplastic/Myeloproliferative Neoplasms: A Loving-Analysis. Front Oncol 2020. PMID:[id number] 32: Sarabia N, Sarabia F, Yuval N et al, IDH1 Mutation Is an Independent Inferior Prognostic Indicator for Patients with Myelodysplastic Syndromes. Acta Haematol 2017. PMID:[id number] 33: Ochoa Stroud, Gabriella R, Hieu ALBERTS, DNMT3A in haematological malignancies. Yusra Rev Cancer 2015. PMID:[id number] This result has been reviewed and approved by Jannette Dutta M.D. Low coverage regions: Listed below are regions where the average sequencing depth (number of times a particular nucleotide is sequenced) in at least 20% of the jgnzhb-ok-twytazuq is less than our stringent cutoff of [...] NOTCH1; NPM1*; NRAS; NSD1; PHF6; PIGA; PPM1D; HLRY16D; PRPF8; PTPN11; RAD21; RUNX1; SAMD9; SAMD9L; SETBP1; [...] developed and its performance characteristics determined by [facility] [employer] [facility] ([facility]). It has not been cleared or approved by the U.S. Food and Drug Administration. This test was performed in a CLIA-certified laboratory and is intended for clinical purposes. Myeloid Malignancy Dx Mds Unspec 03/28/2024 2:06 PM [employer] ([facility]) Myeloid Malignancy Panel Specimen Bone Marrow 03/28/2024 2:06 PM [employer]IVING [employer] IN[employer]CTOR [employer] [facility]) EER Myeloid Malignancy See Note 03/28/2024 2:06 PM [employer]IVING [employer] IN[employer]CTOR [employer] [facility]) Comment: Authorized individuals can access the [employer] Enhanced Report using the following link: [email or web address] Performed By: [facility] ([facility]) [address] [place] [address] Comb Winder: Uche Morley MD, PhD CLIA Number: [id number] Other BONE MARROW SPECIMEN / Unknown Collection / Unknown 03/15/2024 9:05 AM [employer] IN[employer]CTOR 03/15/2024 9:30 AM [employer]IVING [employer] INSTRUCTOR Rodo Perez MD LAB - PATHOLOG Y/CYTOLOGY ORDERABLES [facility]) [address] [id number], [facility] * FISH PML/DANTE PANEL (03/15/2024 9:05 AM [employer]IVING [employer] INSTRUCTOR) Only the most recent of2 resultswithin the time period is included. EER PML/DANTE Translocation by Fish See Note 03/17/2024 4:41 PM [employer]IVING [employer] INSTRUCTOR [facility] ([facility]) Comment: Authorized individuals can access the [employer] Enhanced Report using the following link: [email or web address] Performed By: [facility] ([facility]) [address] [place] [address] Comb Winder: Uche Morley MD, PhD CLIA Number: [id number] PML/DANTE Translocation by FISH See Note 03/17/2024 4:41 PM [employer]IVING [employer] IN[employer]CTOR [employer] [facility] [facility] ([facility]) Comment: Test Performed: PML-DANTE Translocation by [...] reviewed and approved by Nabila Gonzalez, PhD, [facility] A portion of this analysis was performed at the following location(s): [facility] ([facility]) Site CG-WA#2 INTERPRETIVE INFORMATION: PML/DANTE Translocation by FISH This test was developed and its performance characteristics determined by [facility] [employer]. It has not been cleared or approved by the US Food and Drug Administration. This test was performed in a CLIA certified laboratory and is intended for clinical purposes. Other BONE MARROW SPECIMEN / Unknown Collection / Unknown 03/15/2024 9:05 AM [employer]IVING S[employer]OL IN[employer]CTOR 03/15/2024 9:30 AM [employer]IVING S[employer] INSTRUCTOR Rodo Perez MD LAB - PATHOLOG Y/CYTOLOGY ORDERABLES [facility] ([facility]) [address] [place] [address], [facility] * FLOW CYTOMETRY BLOOD PROFILE (03/14/2024 10:32 AM [employer]IVING S[employer]OL INSTRUCTOR) Case Report Flow Cytometry Case: [id number] Authorizing Provider: Ghanshyam Dewey PA-C Collected: 03/14/2024 10:32 AM Ordering Location: [address] Received: 03/14/2024 01:49 PM Pathologist: Angeles Rosado MD Specimen: Blood 03/14/2024 4:58 PM [facility] Final Diagnosis Peripheral blood, flow cytometric immunophenotypic analysis: - 1.2% myeloblasts detected - No evidence of a monoclonal B-cell population - See interpretation 03/14/2024 4:58 PM [facility] Flow Cytometry Results Differential Result Comment WBC Count /uL 1,200 Total Viability % 100.0 Lymphocytes % 80 Dim CD45 Region % 4 Monocytes % 4 Granulocytes % 13 03/14/2024 4:58 PM [facility] Flow Cytometry Interpretation Viability: 100% B-cells: polytypic, kappa:lambda ratio 1.1:1. Blasts: 1.2% of events are myeloblasts. Monocytes are mature. A peripheral blood smear prepared from the flow cytometry specimen has been reviewed for cloth tester quality purposes. 03/14/2024 4:58 PM [facility] Reason for test MDS (myelodysplastic syndrome) (HCC) 238.75 03/14/2024 4:58 PM [facility] Client Specimen ID # [id number] 03/14/2024 4:58 PM [facility] Pathologist Location at [facility] 03/14/2024 4:58 PM [facility] Disclaimer Test performed at [facility], [address] [place] [address], [address]. *The established laboratory minimum viability is 70%. [...] high complexity clinical testing. 03/14/2024 4:58 PM [facility] Embedded Images 4:58 PM [facility] Number of markers 19 were performed. A-2 Flow CD10 A-3 Flow CD13 A-5 Flow CD20 A-11 Flow CD2 A-13 Flow CD14 A-16 Flow CD117 A-17 Flow CD11b A-18 Flow CD11c A-1 Flow CD5 A-4 Flow CD19 A-6 Flow CD33 A-7 Flow CD34 A-8 Flow CD45 A-12 Flow CD7 A-14 Flow CD56 A-15 Flow CD64 A-9 [place]+CD19+ A-10 Lambda+CD19+ A-19 Flow HLA-DR 03/14/2024 4:58 PM [facility] Blood BLOOD SPECIMEN / Unknown Lab Venipuncture / Unknown 03/14/2024 10:32 AM [employer]ING [employer] IN[employer]CTOR 03/14/2024 1:49 PM [employer] IN[employer]CTOR Ghanshyam Dewey PA-C LAB - PATHOLOGY/CYTO LOGY ORDERABLES [facility] [address] [place] [address]. [place] [address], [facility] [phone] * CYTOMEGALOVIRUS (CMV) QUANTITATIVE PLASMA (03/13/2024 11:26 PM [employer]IVING S[employer] IN[employer]CTOR) CMV Quant by PCR, Interp Not detected Not detected 03/14/2024 9:00 AM [employer]IVING SCHOOL INSTRUCTOR [facility] Blood BLOOD SPECIMEN / Unknown Venipuncture / Unknown 03/13/2024 11:26 PM [employer]IVING S[employer]OL INSTRUCTOR 03/13/2024 11:37 PM [employer]IVING S[employer] INSTRUCTOR Narrative [facility] - 03/14/2024 9:00 AM [employer]IVING SCHOOL INSTRUCTOR The Cytomegalovirus (CMV) DNA analysis utilized a [...] Soler MD LAB - CHEMISTRY OR DERABLES [facility] [address] [place] [address], [facility] [phone] * QUINN-RICHMOND VIRUS QUANT BLOOD STL (03/13/2024 11:26 PM [employer]IVING S[employer]OL INSTRUCTOR) Pathologist [facility] EBV Quant by PCR, Interp Not detected Not detected 03/14/2024 8:56 AM [employer]IVING SCHOOL INSTRUCTOR [facility] Specimen Type Plasma 03/14/2024 8:56 AM [facility] Blood BLOOD SPECIMEN / Unknown Venipuncture / Unknown 03/13/2024 11:26 PM [employer]IVING S[employer]OL INSTRUCTOR 03/13/2024 11:37 PM [employer]IVING S[employer]OL INSTRUCTOR Narrative [facility] - 03/14/2024 8:56 AM [employer]IVING S[employer]OL INSTRUCTOR The [place] viral (EBV) DNA analysis utilized [...] Soler MD LAB - CHEMISTRY OR DERABLES [facility] [address] [place] [address], [facility] [phone] * D-DIMER (03/13/2024 11:26 PM [employer]IVING S[employer]OL INSTRUCTOR) D-Dimer Quantitative <0.27 <=0.50 mcg/mL FEU 03/14/2024 12:00 AM [employer]IVING SCHOOL INSTRUCTOR [facility] Comment: In the absence [...] Unknown Venipuncture / Unknown 03/13/2024 11:26 PM [employer]IVING SCHOOL INSTRUCTOR 03/13/2024 11:37 PM [employer]IVING S[employer]OL INSTRUCTOR Ted Soler MD LAB - COAGULATION ORDERABLES [id number] [place] [address], [facility] [phone] * FIBRINOGEN ACTIVITY (03/13/2024 11:26 PM [employer]IVING S[employer] INSTRUCTOR) Pathologist [facility] Fibrinogen Clauss 362 200 - 400 mg/dL 03/13/2024 11:59 PM DRIVING SCHOOL INSTRUCTOR [facility] Blood BLOOD SPECIMEN / Unknown Venipuncture / Unknown 03/13/2024 11:26 PM [employer]IVING SCHOOL INSTRUCTOR 03/13/2024 11:37 PM [employer]IVING SCHOOL INSTRUCTOR Ted Soler MD LAB - COAGULATION ORDERABLES [facility] [address] [place] [address], [facility] [phone] * FISH AML+MDS PANEL BLOOD OR BONE MARROW (03/04/2024 4:13 PM [employer]IVING S[employer] INSTRUCTOR) Pathologist [facility] FISH AML with MDS, Therapy-Rltd AML See Note Normal 03/19/2024 4:32 PM [employer]IVING S[employer]OL INSTRUCTOR [employer] [facility] [facility] ([facility]) Comment: Test Performed: 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 This analysis was performed with the Therapy-Related AML panel probes D5S23/EGR1, D7Z1/H3N709, and MLL (KMT2A) ([employer]). A total of 200 cells were scored for each probe. Cytogenomic Nomenclature (ISCN): nuc nereyda(D5S23,EGR1,D7Z1,M1V003,KMT2A)x2[200' This result has been reviewed and approved by Charles Pablo MD, [facility] INTERPRETIVE INFORMATION: AML with MDS, Therapy-Related AML, FISH This test was developed and its performance characteristics determined by [facility] [employer] [facility] ([facility]). It has not been cleared or approved by the US Food and Drug Administration. This test was performed in a CLIA certified laboratory and is intended for clinical purposes. EER AML with MDS, Therapy-Rltd AML FISH See Note 03/19/2024 4:32 PM [employer]IVING SCHOOL INSTRUCTOR [facility] ([facility]) Comment: Authorized individuals can access the [facility] Enhanced Report using the following link: [email or web address] Performed By: [facility] [employer] [facility] ([facility]) [address] [place] [address] Comb Winder: Uche Morley MD, PhD CLIA Number: [id number] Other BLOOD SPECIMEN / Unknown Collection / Unknown 03/04/2024 4:13 PM [employer]IVING S[employer]OL INSTRUCTOR 03/04/2024 4:23 PM [employer]IVING S[employer]OL INSTRUCTOR Cindy Garcia MD LAB - PATHOLOGY/CYTO LOGY ORDERABLES [facility]) [address] [place], [place] [address] * HLA TYPING LOW/HIGH RESOLUTION DPB1 (03/04/2024 4:13 PM [employer]IVING S[employer]OL INSTRUCTOR) Typ DNA LR DPB1 Allele #1 *04 04/29/2024 2:56 PM [employer]IVING SCHOOL INSTRUCTOR [facility] ([facility]) Typ DNA LR DPB1 Allele #2 *11 04/29/2024 2:56 PM [employer]IVING SCHOOL INSTRUCTOR [facility] ([facility]) Typ DNA HR DPB1 Allele #1 *04:01:01G 04/29/2024 2:56 PM [employer]IVING SCHOOL INSTRUCTOR [facility] ([facility]) Typ DNA HR DPB1 Allele #2 *11:01:01G 04/29/2024 2:56 PM [employer]IVING SCHOOL INSTRUCTOR [facility] ([facility]) Test Methodology RTPCR/NGS 04/29/19 2:56 PM [employer]IVING SCHOOL INSTRUCTOR [facility] ([facility]) Date Results Entered [id number] 04/29/2024 2:56 PM [employer]IVING SCHOOL INSTRUCTOR [facility] ([facility]) Comment: Methodology - Next Generation Sequencing This test was developed and its performance characteristics determined by the [facility]. It has not been cleared [...] high complexity clinical laboratory testing. CLIA ID# [id number] Performed at: [facility], [address] [place] [address] Ophthalmic Asst: Sandeep Jerry, Ph.D., D([facility]), Blood BLOOD SPECIMEN / Unknown Lab Venipuncture / Unknown 03/04/2024 4:13 PM [employer]IVING SCHOOL INSTRUCTOR 03/05/2024 9:56 AM [employer]IVING SCHOOL INSTRUCTOR Cindy Garcia MD LAB - BLOOD BANK ORD ERABLES [facility] ([facility]) [address] [place] [address], [facility] * HLA TYPING DNA LOW RESOLUTION DR,DQ (03/04/2024 4:13 PM DRIVING SCHOOL INSTRUCTOR) DR DQ Low Resolution DRB1-1 *07 04/29/2024 2:56 PM [employer]IVING SCHOOL INSTRUCTOR [facility] ([facility]) DR DQ Low Resolution DQB1-1 *02 04/29/2024 2:56 PM [employer]IVING SCHOOL INSTRUCTOR [facility] ([facility]) DR DQ Low Resolution DRB3-1 Negative 04/29/2024 2:56 PM DRIVING SCHOOL INSTRUCTOR [facility] ([facility]) DR DQ Low Resolution DRB3-2 Negative 04/29/2024 2:56 PM DRIVING SCHOOL INSTRUCTOR [facility] ([facility]) DR DQ Low Resolution DRB4-1 *01 04/29/2024 2:56 PM DRIVING SCHOOL INSTRUCTOR [facility] ([facility]) DR DQ Low Resolution DRB4-2 Negative 04/29/2024 2:56 PM DRIVING SCHOOL INSTRUCTOR [facility] ([facility]) DR DQ Low Resolution DRB5-1 Negative 04/29/2024 2:56 PM DRIVING SCHOOL INSTRUCTOR [facility] ([facility]) DR DQ Low Resolution DRB5-2 Negative 04/29/2024 2:56 PM DRIVING SCHOOL INSTRUCTOR [facility] ([facility]) DR DQ Low Resolution Methodology Real Time PCR 04/29/2024 2:56 PM DRIVING SCHOOL INSTRUCTOR [facility] ([facility]) DR DQ Low Resolution test date [id number] 04/29/2024 2:56 PM DRIVING SCHOOL INSTRUCTOR [facility] ([facility]) Comment: Methodology - Real-Time PCR This test was developed and its performance characteristics determined by the [facility]. It has not been cleared [...] high complexity clinical laboratory testing. CLIA ID# [id number] Performed at: [facility], [address] [place] [id number] Ophthalmic Asst: Sandeep Jerry, Ph.D., D([facility]), Blood BLOOD SPECIMEN / Unknown Lab Venipuncture / Unknown 03/04/2024 4:13 PM [employer]IVING SCHOOL INSTRUCTOR 03/05/2024 9:56 AM [employer]IVING SCHOOL INSTRUCTOR Cindy Garcia MD LAB - BLOOD BANK ORD ERABLES [facility] ([facility]) [address] * HLA TYPING DNA LOW RESOLUTION A,B,C (03/04/2024 4:13 PM DRIVING SCHOOL INSTRUCTOR) ABC DNA A1 *02 04/29/2024 2:56 PM DRIVING SCHOOL INSTRUCTOR [facility] ([facility]) ABC DNA A2 *30 04/29/2024 2:56 PM DRIVING SCHOOL INSTRUCTOR [facility] ([facility]) ABC DNA B1 *13 04/29/2024 2:56 PM DRIVING SCHOOL INSTRUCTOR [facility] ([facility]) ABC DNA B2 *44 04/29/2024 2:56 PM DRIVING SCHOOL INSTRUCTOR [facility] ([facility]) ABC DNA BW1 4 04/29/2024 2:56 PM DRIVING SCHOOL INSTRUCTOR [facility] ([facility]) ABC DNA BW2 4 04/29/2024 2:56 PM DRIVING SCHOOL INSTRUCTOR [facility] ([facility]) ABC DNA C1 *06 04/29/2024 2:56 PM DRIVING SCHOOL INSTRUCTOR [facility] ([facility]) ABC DNA C2 *16 04/29/2024 2:56 PM DRIVING SCHOOL INSTRUCTOR [facility] ([facility]) ABC DNA Methodology Real Time PCR 04/29/2024 2:56 PM DRIVING SCHOOL INSTRUCTOR [facility] ([facility]) ABC DNA Test Date [id number] 2:56 PM DRIVING SCHOOL INSTRUCTOR [facility] ([facility]) Comment: Methodology - Real-Time PCR This test was developed and its performance characteristics determined by the [facility]. It has not been cleared [...] high complexity clinical laboratory testing. CLIA ID# [id number] Performed at: [facility], [address] [place] [id number] Ophthalmic Asst: Sandeep Jerry, Ph.D., D([facility]), Blood BLOOD SPECIMEN / Unknown Lab Venipuncture / Unknown 03/04/2024 4:13 PM [employer]IVING SCHOOL INSTRUCTOR 03/05/2024 9:56 AM [employer]IVING SCHOOL INSTRUCTOR Cindy Garcia MD LAB - BLOOD BANK ORD ERABLES [facility] ([facility]) [address] [place] [address] * HLA TYPING DNA HIGH RESOLUTION DR (03/04/2024 4:13 PM [employer]IVING S[employer]OL INSTRUCTOR) Blood BLOOD SPECIMEN / Unknown Lab Venipuncture / Unknown 03/04/2024 4:13 PM DRIVING SCHOOL INSTRUCTOR 03/05/2024 9:56 AM DRIVING SCHOOL INSTRUCTOR Narrative [facility] ([facility]) - 04/29/2024 4:00 PM [employer]IVING SCHOOL INSTRUCTOR See Scanned Report Cindy Garcia MD LAB - BLOOD BANK ORD INDUSTRYBLES Performing Organization Address City/[facility]/ZIP Co de Phone Number [facility] ([employer]) [address] * HLA TYPING DNA HIGH RESOLUTION DQ (03/04/2024 4:13 PM [employer]IVING SCHOOL INSTRUCTOR) Blood BLOOD SPECIMEN / Unknown Lab Venipuncture / Unknown 03/04/2024 4:13 PM DRIVING SCHOOL INSTRUCTOR 03/05/2024 9:56 AM [employer]IVING SCHOOL INSTRUCTOR Narrative [facility] ([employer]) - 04/29/2024 4:00 PM [employer]IVING SCHOOL INSTRUCTOR See Scanned Report Cindy Garcia MD LAB - BLOOD BANK ORD [facility] Performing Organization Address [facility] Co de Phone Number [facility] ([employer]) [address] * HLA TYPING DNA HIGH RESOLUTION B (03/04/2024 4:13 PM DRIVING SCHOOL INSTRUCTOR) Blood BLOOD SPECIMEN / Unknown Lab Venipuncture / Unknown 03/04/2024 4:13 PM [employer]IVING SCHOOL INSTRUCTOR 03/05/2024 9:56 AM [employer]IVING SCHOOL INSTRUCTOR Narrative [facility] ([employer]) - 04/29/2024 4:00 PM [employer]IVING SCHOOL INSTRUCTOR See Scanned Report Cindy Garcia MD LAB - BLOOD BANK ORD ZEUSCAROL Performing Organization Address City/[facility] Co de Phone Number [facility] ([employer]) [address] * HLA TYPING DNA HIGH RESOLUTION A (03/04/2024 4:13 PM [employer]IVING SCHOOL INSTRUCTOR) Blood BLOOD SPECIMEN / Unknown Lab Venipuncture / Unknown 03/04/2024 4:13 PM DRIVING SCHOOL INSTRUCTOR 03/05/2024 9:56 AM [employer]IVING SCHOOL INSTRUCTOR Narrative [facility] ([employer]) - 04/29/2024 4:01 PM [employer]IVING SCHOOL INSTRUCTOR See Scanned Report Cindy Garcia MD LAB - BLOOD BANK ORD HEMALATHA Performing Organization Address City/[facility]/ZIP Co de Phone Number [facility] ([employer]) [address] * HLA TYPING DNA HIGH RESOLUTION C (03/04/2024 4:13 PM DRIVING SCHOOL INSTRUCTOR) Blood BLOOD SPECIMEN / Unknown Lab Venipuncture / Unknown 03/04/2024 4:13 PM DRIVING SCHOOL INSTRUCTOR 03/05/2024 9:56 AM DRIVING SCHOOL INSTRUCTOR Narrative [facility] ([facility]) - 04/29/2024 4:01 PM DRIVING SCHOOL INSTRUCTOR See Scanned Report Cindy Garcia MD LAB - BLOOD BANK ORD mktgCAROL Performing Organization Address [facility] Co de Phone Number [facility] ([facility]) [address] * CHROMOSOME ANALYSIS LEUKEMIA BLD (03/04/2024 4:13 PM DRIVING SCHOOL INSTRUCTOR) [facility] Chromosome Analysis Leukemic Blood See Note Normal 03/23/2024 12:39 PM DRIVING SCHOOL INSTRUCTOR [facility] ([facility]) Comment: Test Performed: Chromosome Analysis Specimen [...] AML/PML and TAML MDS performed under [facility] accessions [id number] and [phone] were NORMAL. This result has been reviewed and approved by Margaret Roberson, PhD, [facility] INTERPRETIVE INFORMATION: Chromosome Analysis, Leukemic Blood This test was developed and its performance characteristics determined by [facility] ([facility]). It has not been cleared or approved by the US Food and Drug Administration. This test was performed in a CLIA certified laboratory and is intended for clinical purposes. EER Chromosome Analysis Leukemic See Note 03/23/2024 12:39 PM DRIVING SCHOOL INSTRUCTOR [facility] ([facility]) Comment: Authorized individuals can access the [facility] Enhanced Report using the following link: [email or web address] Performed By: [facility] ([facility]) [address] [place] [address] Comb Winder: Uche Morley MD, PhD CLIA Number: [id number] Blood BLOOD SPECIMEN / Unknown Lab Venipuncture / Unknown 03/04/2024 4:13 PM DRIVING SCHOOL INSTRUCTOR 03/22/2024 5:28 PM DRIVING SCHOOL INSTRUCTOR Cindy Garcia MD LAB - PATHOLOGY/CYTO LOGY ORDERABLES [facility]) [address] * HIV-1 HIV-2 ANTIBODY + HIV P24 AG PANEL (New on 08/24) (03/04/2024 4:13 PM DRIVING SCHOOL INSTRUCTOR) HIV Antigen/Antibod y 1 & 2 Non-reacti ve Non-react carlos 03/04/2024 5:12 PM DRIVING SCHOOL INSTRUCTOR [facility] Comment:No Laboratory eviden ce of HIV infection. Blood BLOOD SPECIMEN / Unknown Lab Venipuncture / Unknown 03/04/2024 4:13 PM DRIVING SCHOOL INSTRUCTOR 03/04/2024 4:23 PM DRIVING SCHOOL INSTRUCTOR Cindy Garcia MD LAB - CHEMISTRY CHELI Rao Organization Address City/State/ZIP Co de Phone Number [address] [address], [facility] [phone] * BCR-ABL1 CML+AML PCR QUANT PNL (03/04/2024 4:13 PM DRIVING SCHOOL INSTRUCTOR) Interpretation TNP 03/13/2024 5:08 PM DRIVING SCHOOL INSTRUCTOR [facility] ([facility]) Comment: Unable to obtain results. Repeated efforts to analyze this specimen have been unsuccessful. LOW CONTROL GENE COPY NUMBER INDICATED SPECIMEN DEGRADATION. Director Review Comment 5:08 PM DRIVING SCHOOL INSTRUCTOR [facility] ([facility]) Comment: Dawood Sarabia, PhD, [facility] Director, Molecular Oncology [facility] [place] [address] Background Comment 03/13/2024 5:08 PM DRIVING SCHOOL INSTRUCTOR [facility] ([facility]) Comment: This assay can detect three [...] as indicated. Methodology Comment 03/13/2024 5:08 PM DRIVING SCHOOL INSTRUCTOR [facility] ([facility]) Comment: Total RNA is isolated from [...] developed and its performance characteristics determined by [facility]. It has not been cleared or approved by the Food and Drug Administration. Blood BLOOD SPECIMEN / Unknown Lab Venipuncture / Unknown 03/04/2024 4:13 PM DRIVING SCHOOL INSTRUCTOR 03/04/2024 4:24 PM DRIVING SCHOOL INSTRUCTOR Narrative [facility] ([facility]) - 03/13/2024 5:08 PM DRIVING SCHOOL INSTRUCTOR Performed at: 01 - [facility] [address] [facility], [place], [place] [id number] Ophthalmic Asst: Cinthya Roper [facility], Phone: [phone] Performed at: - [facility] [address], [facility], [place] [id number] Ophthalmic Asst: Cinthya Roper [facility], Phone: [phone] Cindy Garcia MD LAB - CHEMISTRY CHELI MONREAL Performing Organization Address City/[facility]/ZIP Co de Phone Number [facility] ([facility]) [address] [phone] * TSH REFLEX FREE T4 (03/04/2024 4:13 PM DRIVING SCHOOL INSTRUCTOR) [facility] TSH 0.961 0.350 - 4.940 uIU/mL 03/04/2024 5:29 PM DRIVING SCHOOL INSTRUCTOR [facility] Blood BLOOD SPECIMEN / Unknown Lab Venipuncture / Unknown 03/04/2024 4:13 PM DRIVING SCHOOL INSTRUCTOR 03/04/2024 4:27 PM DRIVING SCHOOL INSTRUCTOR Cindy Garcia MD LAB - CHEMISTRY CHELI MONREAL [address] [address] [phone] * RHEUMATOID FACTOR BLOOD QUANTITATIVE (03/04/2024 4:13 PM DRIVING SCHOOL INSTRUCTOR) Pathologist [facility] Rheumatoid Factor <15 <30 IU/mL 03/04/2024 4:57 PM DRIVING SCHOOL INSTRUCTOR [facility] Rheumatoid Factor Screen Negative Negative 03/04/2024 4:57 PM DRIVING SCHOOL INSTRUCTOR [facility] Blood BLOOD SPECIMEN / Unknown Lab Venipuncture / Unknown 03/04/2024 4:13 PM DRIVING SCHOOL INSTRUCTOR 03/04/2024 4:23 PM DRIVING SCHOOL INSTRUCTOR Cindy Garcia MD LAB - CHEMISTRY CHELI MONREAL [id number] [place] [address], [facility] [phone] * CYTOMEGALOVIRUS ANTIBODY IGG BLOOD (03/04/2024 4:13 PM DRIVING SCHOOL INSTRUCTOR) Cytomegalovirus Antibody IgG <0.20 <=0.70 U/mL 03/05/2024 9:27 PM DRIVING SCHOOL INSTRUCTOR [facility] ([facility]) Comment: INTERPRETIVE INFORMATION: Cytomegalovirus Antibody, IgG 0.59 [...] laboratory at the same time. Performed By: [facility] ([facility]) [address] [place] [address] Comb Winder: Uche Morley MD, PhD CLIA Number: [id number] Blood BLOOD SPECIMEN / Unknown Lab Venipuncture / Unknown 03/04/2024 4:13 PM DRIVING SCHOOL INSTRUCTOR 03/04/2024 4:23 PM DRIVING SCHOOL INSTRUCTOR Cindy Garcia MD LAB - CHEMISTRY CHELI MONREAL [facility]) [address] * C-REACTIVE PROTEIN (03/04/2024 4:13 PM DRIVING SCHOOL INSTRUCTOR) Pathologist [facility] C-Reactive Protein 0.5 <=0.5 mg/dL 03/04/2024 4:56 PM DRIVING SCHOOL INSTRUCTOR [facility] Blood BLOOD SPECIMEN / Unknown Lab Venipuncture / Unknown 03/04/2024 4:13 PM DRIVING SCHOOL INSTRUCTOR 03/04/2024 4:27 PM DRIVING SCHOOL INSTRUCTOR Cindy Garcia MD LAB - CHEMISTRY CHELI MONREAL [address] [address], [facility] [phone] * MARLINE BLOOD SCREEN W/REFLEX TITER (03/04/2024 4:13 PM DRIVING SCHOOL INSTRUCTOR) Pathologist [facility] MARLINE IgG None Detected None Detected 03/05/2024 11:42 PM DRIVING SCHOOL INSTRUCTOR [facility] ([facility]) Comment: If suspicion of connective tissue disease is strong and MARLINE EIA is negative, consider testing for MARLINE by IFA ([id number]). INTERPRETIVE INFORMATION: Anti-Nuclear Antibodies (MARLINE), IgG by TOÑA Antinuclear Antibodies (MARLINE), IgG by TOÑA: MARLINE specimens are screened using enzyme-linked immunosorbent assay (TOÑA) methodology. All TOÑA results reported as Detected are further tested by indirect fluorescent assay (IFA) using HEp-2 substrate with an IgG-specific conjugate. The MARLINE TOÑA screen is designed to detect antibodies against dsDNA, histones, SS-A (Ro), SS-B (La), Pimentel, Pimentel/OUTSIDE SALES ADVERTISING EXECUTIVE, Scl-70, Mey-1, centromeric proteins, other antigens extracted from the HEp-2 cell nucleus. MARLINE TOÑA assays have been reported to have lower sensitivities than MARLINE IFA for systemic autoimmune rheumatic diseases (SARD). Negative results do not necessarily rule out SARD. Performed By: [facility] ([facility]) [address] [place] [address] Comb Winder: Uche Morley MD, PhD CLIA Number: [id number] Blood BLOOD SPECIMEN / Unknown Lab Venipuncture / Unknown 03/04/2024 4:13 PM DRIVING SCHOOL INSTRUCTOR 03/04/2024 4:23 PM DRIVING SCHOOL INSTRUCTOR Cindy Garcia MD LAB - CHEMISTRY CHELI MONREAL Performing Organization Address [facility] de Phone Number [facility]) [address] * ZINC BLOOD (03/04/2024 4:13 PM DRIVING SCHOOL INSTRUCTOR) Zinc 62.4 60.0 - 120.0 ug/dL 03/06/2024 6:35 AM DRIVING SCHOOL INSTRUCTOR [facility] ([facility]) Comment: INTERPRETIVE INFORMATION: Zinc, Serum or [...] developed and its performance characteristics determined by [facility] ([facility]). It has not been cleared or approved by the [place] Food and Drug Administration. This test was performed in a CLIA certified laboratory and is intended for clinical purposes. Performed By: [facility] ([facility]) [address] [place] [address] Comb Winder: Uche Morley MD, PhD CLIA Number: [id number] Blood BLOOD SPECIMEN / Unknown Lab Venipuncture / Unknown 03/04/2024 4:13 PM DRIVING SCHOOL INSTRUCTOR 03/04/2024 4:23 PM DRIVING SCHOOL INSTRUCTOR Cindy Garcia MD LAB - CHEMISTRY CHELI MONREAL Performing Organization Address [facility] Co de Phone Number [facility]) [address] * COPPER BLOOD (03/04/2024 4:13 PM DRIVING SCHOOL INSTRUCTOR) Copper 108.5 70.0 - 140.0 ug/dL 03/06/2024 6:35 AM DRIVING SCHOOL INSTRUCTOR [facility] ([facility]) Comment: INTERPRETIVE INFORMATION: Copper, Serum or [...] developed and its performance characteristics determined by [facility] ([facility]). It has not been cleared or approved by the [place] Food and Drug Administration. This test was performed in a CLIA certified laboratory and is intended for clinical purposes. Performed By: [address] [address] Comb Winder: Uche Morley MD, PhD CLIA Number: [id number] Blood BLOOD SPECIMEN / Unknown Lab Venipuncture / Unknown 03/04/2024 4:13 PM DRIVING SCHOOL INSTRUCTOR 03/04/2024 4:23 PM DRIVING SCHOOL INSTRUCTOR Cindy Garcia MD LAB - CHEMISTRY ORDE RABNIC [facility] ([facility]) [address] [place] [address] * ERYTHROCYTE SEDIMENTATION RATE (03/04/2024 4:13 PM DRIVING SCHOOL INSTRUCTOR) [facility] Erythrocyte Sedimentation Rate Westergren 14 0 - 20 MM/HR 03/04/2024 5:10 PM DRIVING SCHOOL INSTRUCTOR [facility] Blood BLOOD SPECIMEN / Unknown Lab Venipuncture / Unknown 03/04/2024 4:13 PM DRIVING SCHOOL INSTRUCTOR 03/04/2024 4:27 PM DRIVING SCHOOL INSTRUCTOR Cindy Garcia MD LAB - HEMATOLOGY ORD ERABLES [address] [address], [facility] [phone] * HEPATITIS B SURFACE ANTIBODY (03/04/2024 4:13 PM DRIVING SCHOOL INSTRUCTOR) Pathologist [facility] Hepatitis B Virus Surface Antibody Non-react carlos Non-react carlos 03/04/2024 5:12 PM DRIVING SCHOOL INSTRUCTOR [facility] Comment: < 8 mIU/mL Hepatitis B surface Antibody (HBsAb). Nonreactive for HBsAb - individual is considered not immune to Hepatitis B Virus infection. Hepatitis B Surface Antibody Quantitative 0.3 <8.0 mIU/mL 03/04/2024 5:12 PM DRIVING SCHOOL INSTRUCTOR [facility] Comment: Hepatitis B Surface Antibody Numeric Result Interpretation: Nonreactive: <8.0 mIU/mL Indeterminate: 8.0 - 12.0 mIU/mL Reactive: >12.0 mIU/mL Blood BLOOD SPECIMEN / Unknown Lab Venipuncture / Unknown 03/04/2024 4:13 PM DRIVING SCHOOL INSTRUCTOR 03/04/2024 4:23 PM DRIVING SCHOOL INSTRUCTOR Cindy Garcia MD LAB - CHEMISTRY CHELI MONREAL Performing Organization Address City/[facility]/ZIP Co de Phone Number [address] [address], [facility] [phone] * HEPATITIS B CORE ANTIBODY TOTAL (03/04/2024 4:13 PM DRIVING SCHOOL INSTRUCTOR) HBc Antibody Total Non-reacti ve Non-reacti ve 03/04/2024 5:12 PM DRIVING SCHOOL INSTRUCTOR [facility] Blood BLOOD SPECIMEN / Unknown Lab Venipuncture / Unknown 03/04/2024 4:13 PM DRIVING SCHOOL INSTRUCTOR 03/04/2024 4:23 PM DRIVING SCHOOL INSTRUCTOR Cindy Garcia MD LAB - CHEMISTRY CHELI MONREAL [address] [address], [place] [phone] * FOLATE (03/04/2024 4:13 PM DRIVING SCHOOL INSTRUCTOR) Folate 17.7 7.0 - 31.4 ng/mL 03/04/2024 5:29 PM DRIVING SCHOOL INSTRUCTOR [facility] Blood BLOOD SPECIMEN / Unknown Lab Venipuncture / Unknown 03/04/2024 4:13 PM DRIVING SCHOOL INSTRUCTOR 03/04/2024 4:27 PM DRIVING SCHOOL INSTRUCTOR Cindy Garcia MD LAB - CHEMISTRY CHELI MONREAL [address] [address], [place] [phone] * VITAMIN B12 (03/04/2024 4:13 PM DRIVING SCHOOL INSTRUCTOR) [facility] Vitamin B12 524 213 - 816 pg/mL 03/04/2024 5:29 PM DRIVING SCHOOL INSTRUCTOR [facility] Blood BLOOD SPECIMEN / Unknown Lab Venipuncture / Unknown 03/04/2024 4:13 PM DRIVING SCHOOL INSTRUCTOR 03/04/2024 4:27 PM DRIVING SCHOOL INSTRUCTOR Cindy Garcia MD LAB - CHEMISTRY CHELI MONREAL Performing Organization Address City/[facility]/ZIP Co de Phone Number [address] [address], [place] [phone] * (ABNORMAL) IRON + TRANSFERRIN PANEL [w/Transferrin Sat % + TIBC] (03/04/2024 4:13 PM DRIVING SCHOOL INSTRUCTOR) [facility] Iron 31(L) 50 - 175 ug/dL 03/04/2024 4:53 PM DRIVING SCHOOL INSTRUCTOR [facility] Transferrin 257 174 - 382 mg/dL 03/04/2024 4:53 PM [facility] Transferrin Saturation % 10(L) 16 - 50 % 03/04/2024 4:53 PM [facility] TIBC Calculated 321 240 - 450 ug/dL 03/04/2024 4:53 PM DRIVING SCHOOL INSTRUCTOR [facility] Blood BLOOD SPECIMEN / Unknown Lab Venipuncture / Unknown 03/04/2024 4:13 PM DRIVING SCHOOL INSTRUCTOR 03/04/2024 4:23 PM DRIVING SCHOOL INSTRUCTOR Cindy Garcia MD LAB - CHEMISTRY CHELI MONREAL [address] [address], [place] [phone] * HEPATITIS C ANTIBODY (03/04/2024 4:13 PM DRIVING SCHOOL INSTRUCTOR) [facility] Hepatitis C Antibody Non-react carlos Non-reac tive 03/04/2024 5:12 PM DRIVING SCHOOL INSTRUCTOR [facility] Comment:Hepatitis C Antibody screen indicates no serologic evidence of past or current infection with Hepatitis C Virus. Patients with unexplained liver disease who are immunocompromised or suspected of having acute Hepatitis C infection may benefit from Nucleic Acid Test (YUSRA) for Hepatitis C Viral RNA to confirm Hepatitis C status. Blood BLOOD SPECIMEN / Unknown Lab Venipuncture / Unknown 03/04/2024 4:13 PM DRIVING SCHOOL INSTRUCTOR 03/04/2024 4:23 PM DRIVING SCHOOL INSTRUCTOR Cindy Garcia MD LAB - CHEMISTRY CHELI MONREAL [facility] [address] [place] [address], [place] [phone] * (ABNORMAL) FERRITIN (03/04/2024 4:13 PM DRIVING SCHOOL INSTRUCTOR) Ferritin 21(L) 22 - 275 ng/mL 03/04/2024 5:12 PM DRIVING SCHOOL INSTRUCTOR [facility] Blood BLOOD SPECIMEN / Unknown Lab Venipuncture / Unknown 03/04/2024 4:13 PM DRIVING SCHOOL INSTRUCTOR 03/04/2024 4:23 PM DRIVING SCHOOL INSTRUCTOR Cindy Garcia MD LAB - CHEMISTRY CHELI MONREAL [facility] [address] [place] [address], [place] [phone] from Last 3 Months Advance Directives * Full Code (Latest Code Status on File) Date Activated Date Inactivated Comments 03/13/2024 9:41 PM 03/23/2024 2:56 PM Care Teams Farmworker Vegetable Relationship Specialty Start Date End Date Timothy Banks MD [address] [place] [phone] PCP - General 10/19/18 Cindy Garcia MD [address] [place] [address] Veneer Jointer Operator/Oncologis t Hematology and Oncology 03/24/24
--- OUTSIDE RECORDS SUMMARY | 2024-05-27 11:40 | XMS_ITS | Encounter Summary ---
Author Organization [facility] Address [address] [place] [address] Care Team Providers Care Take Away Man Name Role Phone Timothy Banks MD Primary Care Provider Cindy Garcia MD Unavailable Encounter Details Date Type Department Care Team (Late Contact Info) Description 09/28/2023 Lab Requisition [facility] - DermPath Lab [address] [place] [phone] Timothy Banks [place] [address] [place] [phone] Social History Tobacco Use Types Packs/Day Years Used Date Smoking Tobacco: Never Assessed Sex and Gender Information Value Date Recorded Sex Assigned at Male 03/05/2024 8:04 AM TELEGRAPHER AGENT Gender Identity Male 03/05/2024 8:04 AM TELEGRAPHER AGENT Sexual Orientation Straight 03/05/2024 8: 04 AM TELEGRAPHER AGENT documented as of this encounter Plan of Treatment Upcoming Encounters Date Type Department Care Team (Late Contact Info) Description 05/30/2024 11:00 AM TELEGRAPHER AGENT Office Visit [facility] - Hematology/Oncology [address] [place] [phone] Cindy Garcia MD [address] [place], [place] [phone] 06/13/2024 9:00 AM TELEGRAPHER AGENT [facility]ointment [facility] [address] [place] [address] 06/14/2024 9:00 AM TELEGRAPHER AGENT [facility]ointment [facility] [address] [place] [address] 06/17/2024 9:[address] [facility] [address] [place] [address] 06/18/2024 9:20 AM CDT Appointment [facility] [address] [place] [address] 06/19/2024 9:00 AM CDT Appointment [facility] [address] [place] [phone] documented as of this encounter Procedures Procedure Name Priority Date/Time Associated Diagnosis Comments DERMATOPATHOLOGY Routine 09/27/2023 12:0 0 AM CDT documented in this encounter Results * DERMATOPATHOLOGY (09/27/2023 12:00 AM CDT) Case Report Dermatopathology Report Case: [id number] Authorizing Provider: Timothy Banks MD Collected: 09/27/2023 12:00 AM Ordering Location: [facility] - Received: 09/28/2023 10:46 AM DermPath Lab Pathologist: Kerry Pringle MD Specimens: A) - Skin, left neck B) - Skin, left axilla 12:35 PM CDT DERMATOPATHOLOGY LABORATORY Final Diagnosis Specimen A. SKIN, left neck: SEBORRHEIC KERATOSIS, IRRITATED AND INFLAMED (L82.0) PRESENT AT MARGIN Specimen B. SKIN, left axilla: PIGMENTED SEBORRHEIC KERATOSIS (L82.1) PRESENT AT MARGIN 12:35 PM CDT DERMATOPATHOLOGY LABORATORY Clinical History A-B: Changing lesion 12:35 PM CDT DERMATOPATHOLOGY LABORATORY Gross Description Specimen A: Received is one formalin filled container labeled with the patient's name and designated left neck. The specimen consists of a shave biopsy measuring 42a40d0 mm. Jar 0. Specimen B: Received is [...] characteristic determined by the Dermatopathology Laboratory at [facility], directed by Dr. Randall Pringle. These tests need not be, and therefore are not, approved by the [place] Food and Drug Administration. The tests are used for clinical purposes. Billing Codes Specimen Charges Stain Charges 27959 [id number] 1 1 4 12:35 PM CDT DERMATOPATHOLOGY LABORATORY Embedded Images 4 12:35 PM CDT DERMATOPATHOLOGY LABORATORY Pathology/Cytology TISSUE SPECIMEN FROM SKIN / Unknown 09/27/2023 09/28/2023 10:46 AM CDT Miscellaneous samples (specimen) TISSUE SPECIMEN FROM SKIN / Unknown 09/27/2023 09/28/2023 10:46 AM CDT Timothy Banks MD LAB - PATHOLOGY/CYTO LOGY ORDERABLES DERMATOPATHOLOGY LABORATORY [facility] - Department of Dermatology [facility] [address] [facility], [address] [phone] documented in this encounter Visit Diagnoses Not on filedocumented in this encounter Care Teams Take Away Man Relationship Specialty Start Date End Date Timothy Banks MD [address] [place] [phone] PCP - General 10/19/18 Cindy Garcia MD [address] [place] [address] Cuprous Chloride Operator/Oncologis t Hematology and Oncology 03/24/24 documented as of this encounter
--- OUTSIDE RECORDS SUMMARY | 2024-05-27 11:40 | XMS_ITS | Referral Summary ---
Author Organization [facility] [address] [place] [address] [address] [place] [address] Care Team Providers Care Pulmonary Specialist Name Role Phone Timothy Banks MD Primary Care Provider Encounters Date Type Department Care Team Description 04/25/2024 3:00 PM PUBLIC RELATIONS OFFICER Ancillary Procedure [facility] Cardiology [facility] 8th [place] [address] [place] [phone] SVT (supraventricular tachycardia) ([facility]) 04/25/2024 11:45 AM PUBLIC RELATIONS OFFICER Office Visit 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 Hematology 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 1 06/01/2015 Overview (07/21/2016): Chronic anticoagulation RBBB 03/31/2016 Overview (07/21/2016): Right bundle branch block 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) 03/31/2016 Overview (07/21/2016): Venous thromboembolism Hypertensive left ventricular hypertrophy 2015 Overview (07/21/2016): Hypertensive left ventricular hypertrophy, without heart failure LVH (left ventricular hypertrophy) 03/31/2016 Overview (07/21/2016): Left ventricular hypertrophy Chronic renal insufficiency, stage III (moderate ) 08/19/2013 Immunizations Immunization Administration Dates Next Due Influenza, [...] on file Legal Sex Male 4:19 AM PUBLIC RELATIONS OFFICER Gender Identity Male 01/12/2020 7:43 PM CDT Sexual Orientation Straight 01/12/2020 7: 43 PM CDT Last Filed Vital Signs Vital Sign Reading Time Taken Comments Blood Pressure 142/82 04/25/2024 11:22 AM PUBLIC RELATIONS OFFICER Pulse 77 04/25/2024 11:22 AM PUBLIC RELATIONS OFFICER Temperature 36.3 C (97.4 F) 08/24/2023 9:29 AM CDT Respiratory Rate 18 08/24/2023 9:29 AM CDT Oxygen Saturation 97% 04/25/2024 11:22 AM PUBLIC RELATIONS OFFICER Inhaled Oxygen Concentration - - Weight 97.8 kg (215 lb 9.6 oz) 04/25/2024 11:22 AM PUBLIC RELATIONS OFFICER Height 185.4 cm (6' 1 ) 04/25/2024 11:22 AM PUBLIC RELATIONS OFFICER Body Mass Index 28.44 04/25/2024 11:22 AM PUBLIC RELATIONS OFFICER Plan of Treatment Not on file Procedures Procedure Name Priority Date/Time Associated Diagnosis Comments EXTENDED/NURSING HOME HOLTER PATCH (8 DAYS UP TO 15 DAYS) Routine 04/25/2024 12:44 PM PUBLIC RELATIONS OFFICER SVT (supraventricular tachycardia) (HCC) ECG 12-LEAD Routine 04/25/2024 11:28 AM PUBLIC RELATIONS OFFICER SVT (supraventricular tachycardia) (HCC) from Last 3 Months Results * Extended/[facility] Holter Patch (8 days up to 15 days) (04/25/2024 12:44 PM PUBLIC RELATIONS OFFICER) Anatomical Region Laterality Modality Electrocardiogra phy 04/25/2024 12:4 4 PM PUBLIC RELATIONS OFFICER Narrative 05/23/2024 7:12 PM PUBLIC RELATIONS OFFICER [facility] [place] [address] HOLTER MONITOR Patient Name: NADEEM AMAYASadaf : 1945 (78y 5m) Gender: M Study Date: 04/25/2024 12:44:17 PM Ht(Inch): Wt(Lb): BSA: Tech: Location: [facility] Order Provider: ALBERTO MOFFETT BMI: Ref Provider: ALBERTO MOFFETT PROCEDURES: Holter Report: EXTENDED/NURSING HOME HOLTER PATCH (8 DAYS UP TO 15 DAYS) [CAR80]. Enrollment Period: 04/25/2024-05/09/2024. Monitor Number: [id number]. Patient Instructions: Patient picked up device from office and understand directions and use of the equipment. Location: [facility]. INDICATIONS: I47.10 Supraventricular tachycardia, unspecified. FINDINGS: Holter Data: Min Rate: 48 BPM Min Rate Timestamp: 2024-05-09 04:32:31 Max Rate: 253 BPM Max Rate Timestamp: 2024-05-07 11:48:36 Mean Rate: 79 BPM Singlets (PACs): 092069 events Couplets (PACs): 71890 events Total (SVE): 740630 events Singlets (PVCs): 1335 events Couplets (PVCs): 2 events Total (VE): 1350 events Total beats: 8490817 Protocol: Recording Duration (Actual): 0395566.12 Total QRS: 4182858 SUMMARY: *The predominant rhythm was sinus with [...] PDF report can be found in the [facility] patient chart. Electronically Signed By: Kenny Stern Jr., M.D. 05/23/2024 6:10:09 PM PUBLIC RELATIONS OFFICER Electronically Signed By: Kenny Stern Jr., M.D. 05/23/2024 6:10:09 PM PUBLIC RELATIONS OFFICER Procedure Note Kenny Stern MD PhD - 05/23/2024 [facility] [place] [address] HOLTER MONITOR Patient Name: NADEEM AMAYA W : 1945 (78y 5m) Gender: M Study Date: 04/25/2024 12:44:17 PM Ht(Inch): Wt(Lb): BSA: Tech: Location: [facility] Order Provider: ALBERTO MOFFETT BMI: Ref Provider: ALBERTO MOFFETT PROCEDURES: Holter Report: EXTENDED/NURSING HOME HOLTER PATCH (8 DAYS UP TO 15 DAYS)[CAR80]. Enrollment Period: 04/25/2024-05/09/2024. Monitor Number: [id number]. Patient Instructions: Patient picked up device from office and understanddirections and use of the equipment. Location: [facility]. INDICATIONS: I47.10 Supraventricular tachycardia, unspecified. FINDINGS: Holter Data: Min Rate: 48 BPM Min Rate Timestamp: 2024-05-09 04:32:31 Max Rate: 253 BPM Max Rate Timestamp: 2024-05-07 11:48:36 Mean Rate: 79 BPM Singlets (PACs): 628344 events Couplets (PACs): 25329 events Total (SVE): 796216 events Singlets (PVCs): 1335 events Couplets (PVCs): 2 events Total (VE): 1350 events Total beats: 2466291 Protocol: Recording Duration (Actual): 3995334.12 Total QRS: 6623880 SUMMARY: *The predominant rhythm was sinus with [...] 170 bpm, 04/27 10:55:48, and the Longest izimuec29 beats, 04/27 10:55:48. *There were 221,618 SVE [...] 170 bpm, 04/27 10:55:48, and the Longest beats, 04/27 10:55:48. *There were 221,618 SVE beats with a burden of 14 %. There were 3,990occurrences of Supraventricular Tachycardia with the Fastest episode 253 bpm, 04/2810:48:32, and the Longest episode 9m 57.8s, 04/26 04:27:10. *There were 0 Patient Triggers. 2. Agree with findings from [employer] document. 3. The PDF report can be found in the [facility] patient chart. Electronically Signed By: Kenny Stern Jr., M.D. 05/23/2024 6:10:09 PM PUBLIC RELATIONS OFFICER Electronically Signed By: Kenny Stern Jr., M.D. 05/23/2024 6:10:09 PM PUBLIC RELATIONS OFFICER us Alberto Moffett MD CV CARDIAC SERVICES PRO CEDURES Final Result * ECG 12 lead (04/25/2024 11:28 AM PUBLIC RELATIONS OFFICER) us Alberto Moffett MD ECG ORDERABLES Final R esult from Last 3 Months Insurance [employer] MEDICARE [facility] MEDICARE [facility] MEDICARE Care Teams Pulmonary Specialist Relationship Specialty Start Date End Date Timothy Banks MD PCP - General 07/08/16
--- OUTSIDE RECORDS SUMMARY | 2024-05-27 11:40 | XMS_ITS | Encounter Summary ---
Author Organization [facility] Address [address] [facility] [place] [address] Care Team Providers Care Turnstile Collector Name Role Phone Timothy Banks MD Primary Care Provider Cindy Garcia MD Unavailable Encounter Details Date Type Department Care Team (Late st Contact Info) Description 02/13/2024 Lab Requisition [facility] - Pathology Lab [address] [place] [address] Rommel Dinh MD [address] [address] Illness, unspecified Social History Tobacco Use Types Packs/Day Years Used Date Smoking Tobacco: Never Assessed Sex and Gender Information Value Date Recorded Sex Assigned at Male 03/05/2024 8:04 AM INSTRUMENT REPAIR SPECIALIST Gender Identity Male 03/05/2024 8:04 AM INSTRUMENT REPAIR SPECIALIST Sexual Orientation Straight 03/05/2024 8: 04 AM INSTRUMENT REPAIR SPECIALIST documented as of this encounter Plan of Treatment Upcoming Encounters Date Type Department Care Team (Late Contact Info) Description 05/30/2024 11:00 AM INSTRUMENT REPAIR SPECIALIST Office Visit [facility] - Hematology/Oncology [address] [place] [phone] Cindy Garcia MD [address] [place] [address] 06/13/2024 9:00 AM INSTRUMENT REPAIR SPECIALIST Appointment [facility] [address] [place] [address] 06/14/2024 9:00 AM INSTRUMENT REPAIR SPECIALIST Appointment [facility] [address] [place] [phone] 06/17/2024 9:20 AM CDT Appointment [facility] [address] [place] [address] 06/18/2024 9:20 AM CDT Appointment [facility] [address] [place] [address] 06/19/2024 9:00 AM CDT Appointment [facility] [address] [place] [address] documented as of this encounter Procedures Procedure Name Priority Date/Time Associated Diagnosis Comments BONE MARROW BIOPSY (STL) Routine 02/12/2024 9:20 AM INSTRUMENT REPAIR SPECIALIST Illness, unspecified documented in this encounter Results * BONE MARROW BIOPSY (STL) (02/12/2024 9:20 AM INSTRUMENT REPAIR SPECIALIST) Case Report Bone Marrow Patholog y Report Case: [id number] Authorizing Provider: Rommel Dinh Collected: 02/12/2024 09:20 AM MD Luke Ordering Location: [facility] - Received: 02/13/2024 12:34 PM Pathology Lab Pathologist: Daniela Bronson MD Specimens: A) - Bone Marrow Clot B) - Bone Marrow Core 02/14/2024 1:43 [address]PAIR [address] [facility] Final Diagnosis Bone marrow, iliac crest, core biopsy, clot section, and aspirate: - Increased myeloblasts (up to 30% by morphology) with mild trilineage dyspoiesis involving a hypercellular bone marrow (70-80% cellular), see comment - Absent iron stores - Patchy and mild increase in reticulin fibrosis (MF-1) 02/14/2024 1:[address]IR SPECIALIST [facility] Comment The patient is a [...] a high-grade myeloid neoplasm. 02/14/2024 1:43 PM [facility] Peripheral Smear Description The patient's [...] including numerous giant platelets. 02/14/2024 1:43 PM [facility] Bone Marrow Aspirate Differential count [...] stain): no ring sideroblasts. 02/14/2024 1:43 PM [facility] Bone Marrow Core Biopsy and [...] similar to core biopsy. 02/14/2024 1:43 PM [facility] Flow Cytometry Summary Flow cytometry identified 35% myeloblasts and no diagnostic immunophenotypic evidence of monoclonal B-cells, an aberrant T-cell population, or plasma cell neoplasm ([id number]). 02/14/2024 1:43 PM [facility] Clinical History Chronic leukopenia 02/14/2024 1:43 PM [facility] Materials Received Received are 19 slide(s) and 3 blocks labeled [id number] along with a copy of the outside pathology report. [place] [address]. All original materials are returned to the referring institution, along with a copy of our final report. 02/14/2024 1:43 PM [facility] Microscopic Description CD34 immunohistochemistry stains [...] sections reveal absent stores. 02/14/2024 1:43 PM [facility] Pathologist Location at [facility] 02/14/2024 1:43 PM [facility] Disclaimer The performance characteristics of all immunohistochemical and indirect immunofluorescence stains (if any) cited in this report were determined by the Histopathology Laboratory of [facility]. Some of these tests were [...] the attending (teaching) pathologist. 02/14/2024 1:43 PM INSTRUMENT REPAIR SPECIALIST [facility] Embedded Images 02/14/2024 1:43 PM INSTRUMENT REPAIR SPECIALIST [facility] Pathology/Cytology BONE MARROW SPECIMEN / Unknown 02/12/2024 9:20 AM INSTRUMENT REPAIR SPECIALIST 02/13/2024 12:34 PM INSTRUMENT REPAIR SPECIALIST Miscellaneous samples (specimen) BONE MARROW SPECIMEN / Unknown 02/12/2024 9:20 AM INSTRUMENT REPAIR SPECIALIST 02/13/2024 12:34 PM INSTRUMENT REPAIR SPECIALIST Rommel Dinh MD LAB - PATHO LOGY/CYTOLOGY ORDERABLES Performing Organization Address City/State/[facility] de Phone Number [facility] [address] [phone] documented in this encounter Visit Diagnoses Diagnosis Illness, unspecified documented in this encounter Care Teams Turnstile Collector Relationship Specialty Start Date End Date Timothy Banks [place] [address] [place] [address] PCP - General 10/19/18 Cindy Garcia MD [address] [place] [address] Contracts Administrator/Oncologis t Hematology and Oncology 03/24/24 documented as of this encounter
--- OUTSIDE RECORDS SUMMARY | 2024-05-27 11:41 | XMS_ITS | Clinical Summary ---
Author Organization [facility] Address [address] [place] [address] Care Team Providers Care Premises Technician Name Role Phone Unavailable Primary Care Provider Unavailabl e Immunizations Immunization Administration Dates Next Due Covid-19, Mrna, Lnp-s, Pf, 30 Mcg/0.3 Ml Dose (P fizer) 04/14/2021 Social History Tobacco Use Types Packs/Day Years Used Date Smoking Tobacco: Never Assessed Sex and Gender Information Value Date Recorded Sex Assigned at Not on file Legal Sex Male 3:46 PM AUTO EMISSIONS TECHNICIAN Gender Identity Not on file Sexual Orientation [...]
--- OUTSIDE RECORDS SUMMARY | 2024-05-27 11:41 | XMS_ITS | Clinical Summary ---
Author Organization [facility] Address [address] [place] [phone] Phone Care Team Providers Care Apple Press Operator Name Role Phone Timothy Banks MD Primary Care Provider [phone] Allergies No known active allergies Medications Medication [...] 84 11/22/2021 9:06 AM CDT Temperature 35.9 C (96.6 F) 11/22/2021 9:06 AM CDT Respiratory Rate - - Oxygen Saturation - - Inhaled Oxygen Concentration - - Weight 114 kg (252 lb) 11/22/2021 9:06 AM CDT Height 188 cm (6' 2 ) 11/22/2021 9:06 AM CDT Body Mass Index 32.35 11/22/2021 9:06 AM CDT Plan of Treatment Health Maintenance Due Date Last Done Comments COVID-19 Vaccine (2 - 2023-2 5 season) 2023 04/14/2021 Influenza Vaccine (#1) 2023 , 01/09/2020, 01/25/2019, Additional history exists Pneumococcal PPSV23/PCV13 65 + Years / High and Highest Risk Completed 09/17/2018, 08/27/2015 Care Teams Apple Press Operator Relationship Specialty Start Date End Date Timothy Banks MD [address] [place] [address] PCP - General Family Medicine 11/14/18
== END 2024-05-27 08:56 | disposition home or self-care (01) ==
LOC: ANHLAB 08:56
PROVIDERS: PCP Family Medicine; Visit Provider Internal Medicine Hematology & Oncology
DX: C92.00 Acute myeloblastic leukemia, not having achieved remission (principal)
CPT/HCPCS: 36415; 80047; 85025

== ENCOUNTER 2024-06-03 14:13 | Outpatient (CLI) | payer MEDICARE, SELFPAY ==
[2024-06-03 14:33] LABS: Hematocrit 34.9 % (42.0-52.0); Hemoglobin 11.4 g/dL (14.0-18.0); Immature Granulocyte Absolute 0.01 K/mm3 (0.00-0.031); Immature Granulocyte Percent A 0.7 % (0-0.5); Immature Platelet Fraction Pct 7.2 % (0.9-11.2); Lymphocytes Absolute Auto 0.49 K/mm3 (0.9-3.2); Mean Corpuscular HGB Conc 32.7 g/dl (32-36); Mean Corpuscular Hemoglobin 29.8 pg (26-34); Mean Corpuscular Volume 91.1 fl (80-100); Mean Platelet Volume 11.3 fl (7.4-10.4); Monocytes Absolute Auto 0.2 K/mm3 (0.1-0.6); Monocytes Percent Auto 11.4 % (2.6-8.5); Neutrophils Absolute Auto 0.7 K/mm3 (1.3-6.7); Neutrophils Percent Auto 52.9 % (45.5-73.1); Platelet Count Result 125 k/mm3 (150-375); Red Blood Count 3.83 M/mm3 (4.6-6.20); Red Cell Distribution Width 19.9 % (11.5-14.5)
[2024-06-03 14:34] LABS: White Blood Count 1.4 K/mm3 (4.5-10.0)
[2024-06-03 15:21] LABS: Anion Gap 12 mmol/L (4-12); Blood Urea Nitrogen 17 mg/dL (9-20); Calcium 9.3 mg/dL (8.4-10.2); Carbon Dioxide 24 mmol/L (22-30); Chloride 107 mmol/L (98-107); Estimated Glomerular Filt Rate 57; Glucose 96 mg/dL (65-110); Potassium 3.9 mmol/L (3.4-5.0); Sodium 143 mmol/L (137-145)
--- OUTSIDE RECORDS SUMMARY | 2024-06-03 16:34 | XMS_ITS | Patient Health Summary ---
Author Organization [facility] Address [address] [place] [address] Care Team Providers Care Cereal Miller Name Role Phone Timothy Banks MD Primary Care Provider Cindy Garcia MD Unavailable Note from [facility],non-owned Affiliates and Associated Physician Practices is amultiple site organization consisting of ambulatory clinics and hospital sitesin [place], [place], [place] and [place]. This disclosure is being madepursuant to the Care Everywhere program and may not contain all information available regarding this patient. Last updated 17.[facility] Allergies * Contrast-Gadolinium Agents For Mri(Urticaria) -Medium [...] and heating? Not hard at all 03/13/2024 [facility] [place] of Occupat ional Health - Occupational Stress [...] any time in the past 12 m [facility], were you homeless or living in a care home (including now)? No 03/13/2024 Sex and Gender Information Value Date Recorded Sex Assigned at Male 03/05/2024 8:04 AM [facility] Gender Identity Male 03/05/2024 8:04 AM [facility] Sexual Orientation Straight 03/05/2024 8: 04 AM [facility] Last Filed Vital Signs Vital Sign Reading Time Taken Comments Blood Pressure 129/87 05/30/2024 11:20 AM [facility] Pulse 80 05/30/2024 11:20 AM [facility] Temperature 36.4 C (97.6 F) 05/30/2024 11:20 AM [facility] Respiratory Rate 18 05/30/2024 11:2 0 AM [facility] Oxygen Saturation 100% 05/30/2024 11: 20 AM [facility] Inhaled Oxygen Concentration - - Weight 94.3 kg (207 lb 12.8 oz) 025 11:20 AM [facility] Height 182.9 cm (6') 05/15/2024 12:50 PM [facility] Body Mass Index 28.18 05/15/2024 12:50 PM [facility] Medical Devices Implanted Type Area Goldbeater Device Identifier Shelf Expiration Date Model / Serial / Lot Port Implinfn Powerport Clrvu Argd Kandy Implanted:Qty : 1 on 04/11/2024 by Davian Marshall MD at [facility] Catheters Right: Chest Wall [employer] [id number] 02/07/2025 [id number] / / [id number] Procedures * COMPREHENSIVE METABOLIC PANEL(Performed 05/30/2024) 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) * MYELOID MALIGNANCIES MUTATION PNL(Performed 03/15/2024) Performed for MDS (myelodysplastic syndrome) ([facility]) * FISH MDS PANEL BLOOD OR BONE MARROW(Performed 03/15/2024) Performed for MDS (myelodysplastic syndrome) ([facility]) * FISH AML PANEL BLOOD OR BM RFLX PML/DANTE(Performed 03/15/2024) Performed for MDS (myelodysplastic syndrome) ([facility]) * FLOW CYTOMETRY BONE MARROW(Performed 03/15/2024) Performed for MDS (myelodysplastic syndrome) ([facility]) * BONE MARROW BIOPSY (STL)(Performed 03/15/2024) Performed for MDS (myelodysplastic syndrome) ([facility]) * FISH PML/DANTE PANEL(Performed 03/15/2024) Performed for MDS (myelodysplastic syndrome) ([facility]) * CHROMOSOME ANALYSIS BONE MARROW PANEL(Performed 03/15/2024) Performed for MDS (myelodysplastic syndrome) ([facility]) * LAB MISC TEST (NOT BLOOD)(Performed [...] 12-LEAD(Performed 03/14/2024) Performed for MDS (myelodysplastic syndrome) (HCC) * FLOW CYTOMETRY BLOOD PROFILE(Performed 03/14/2024) Performed for MDS (myelodysplastic syndrome) (HCC) * DIFFERENTIAL MANUAL(Performed 03/13/2024) * LDH BLOOD(Performed [...] BLD(Performed 03/04/2024) Performed for MDS (myelodysplastic syndrome) ([facility]) * FISH PML/DANTE PANEL(Performed 03/04/2024) Performed for MDS (myelodysplastic syndrome) ([facility]) * FISH AML PANEL BLOOD OR BM RFLX PML/DANTE(Performed 03/04/2024) Performed for MDS (myelodysplastic syndrome) ([facility]) * FISH AML+MDS PANEL BLOOD OR BONE MARROW(Performed 03/04/2024) Performed for MDS (myelodysplastic syndrome) ([facility]) * MYELOID MALIGNANCIES MUTATION PNL(Performed 03/04/2024) Performed for MDS (myelodysplastic syndrome) ([facility]) * HLA TYPING LOW/HIGH RESOLUTION DPB1(Performed [...] * DERMATOPATHOLOGY(Performed 09/24/2013) Results * (ABNORMAL) CBC W/ DIFFERENTIAL (05/30/2024 11:05 AM [facility]) Only the most recent of20 resultswithin the time period is included. WBC 3.1(L) 4.0 - 10.7 x10E9/L 05/30/2024 12:31 PM [facility] RBC Count 3.95(L) 4.30 - 5.80 x10E12/L 05/30/2024 12:31 PM [facility] Hemoglobin 11.5(L) 13.3 - 17.5 g/dL 05/30/2024 12:31 PM [facility] Hematocrit 34.5(L) 38.7 - 51.1 % 05/30/2024 12:31 PM [facility] MCV 87.3 80.0 - 98.0 fL 05/30/2024 12:31 PM [facility] MCH 29.1 26.7 - 33.6 pg 05/30/2024 12:31 PM [facility] MCHC 33.3 31.7 - 36.3 g/dL 05/30/2024 12:31 PM [facility] RDW-CV 18.9(H) 11.3 - 14.8 % 05/30/2024 12:31 PM [facility] Platelet Count 05/30/2024 12:31 PM [facility] Comment:Platelets clumped on slide but appears adequate. Recommend repeat with a sodium citrate blue top tube. Preliminary Absolute Neutrophil 2.01 1.60 - 7.50 x10E9/L 05/30/2024 12:31 PM [facility] Comment:Preliminary ANC pend ing manual confirmation Neutrophil % 65.1 41.0 - 74.0 % 05/30/2024 12:31 PM [facility] Lymphocyte % 15.2(L) 17.0 - 47.0 % 05/30/2024 12:31 PM [facility] Monocyte % 18.1(H) 3.0 - 11.0 % 05/30/2024 12:31 PM [facility] Eosinophil % 0.0 0.0 - 7.0 % 05/30/2024 12:31 PM [facility] Basophil % 0.0 0.0 - 1.6 % 05/30/2024 12:31 PM [facility] Immature Granulocytes % 1.6(H) 0.0 - 1.0 % 05/30/2024 12:31 PM [facility] Neutrophil Absolute 2.01 1.60 - 7.50 x10E9/L 05/30/2024 12:31 PM [facility] Lymphocyte Absolute 0.47(L) 1.00 - 4.40 x10E9/L 05/30/2024 12:31 PM [facility] Monocyte Absolute 0.56 0.15 - 1.00 x10E9/L 05/30/2024 12:31 PM [facility] Eosinophil Absolute 0.00 0.00 - 0.60 x10E9/L 05/30/2024 12:31 PM [facility] Basophil Absolute 0.00 0.00 - 0.13 x10E9/L 05/30/2024 12:31 PM [facility] Blood BLOOD SPECIMEN / Unknown Venipuncture / Unknown 05/30/2024 11:05 AM [facility] 05/30/2024 11:25 AM [facility] Cindy Garcia MD LAB - HEMATOLOGY ORD ERABLES [facility] [address] [place] [address], [facility] [phone] * (ABNORMAL) COMPREHENSIVE METABOLIC PANEL (05/30/2024 11:05 AM [facility]) Only the most recent of21 resultswithin the time period is included. BUN 15 7 - 26 mg/dL 05/30/2024 12:26 PM [facility] Creatinine 1.15 0.71 - 1.16 mg/dL 05/30/2024 12:26 PM [facility] Sodium 140 136 - 145 mmol/L 05/30/2024 12:26 PM [facility] Potassium 3.7 3.5 - 4.5 mmol/L 05/30/2024 12:26 PM [facility] Chloride 108(H) 98 - 107 mmol/L 05/30/2024 12:26 PM [facility] CO2 20(L) 22 - 29 mmol/L 05/30/2024 12:26 PM [facility] Glucose 97 70 - 99 mg/dL 05/30/2024 12:26 PM [facility] Calcium 9.3 8.4 - 10.2 mg/dL 05/30/2024 12:26 PM [facility] Protein Total 6.4 6.0 - 8.3 g/dL 05/30/2024 12:26 PM [facility] Albumin 4.0 3.4 - 5.0 g/dL 05/30/2024 12:26 PM [facility] Bilirubin Total 0.9 0.2 - 1.2 mg/dL 05/30/2024 12:26 PM [facility] Alkaline Phosphatase 128 40 - 150 U/L 05/30/2024 12:26 PM [facility] ALT 11 5 - 55 U/L 05/30/2024 12:26 PM [facility] AST 13 5 - 34 U/L 05/30/2024 12:26 PM [facility] Anion Gap 12 6 - 16 05/30/2024 12:26 PM [facility] BUN/Creatinine Ratio 13 7 - 23 05/30/2024 12:26 PM [facility] Osmolality Calculated 291 275 - 295 mOsm/kg 05/30/2024 12:26 PM [facility] Albumin/Globulin Ratio 1.7 1.1 - 2.3 05/30/2024 12:26 PM [facility] eGFR by CKD-EPI 65(L) >=90 mL/min/1.7 3 m2 05/30/2024 12:26 PM [facility] Blood BLOOD SPECIMEN / Unknown Venipuncture / Unknown 05/30/2024 11:05 AM [facility] 05/30/2024 11:43 AM [facility] Cindy Garcia MD LAB - CHEMISTRY CHELI MONREAL [facility] [address] [place] [address], [facility] [phone] * (ABNORMAL) DIFFERENTIAL MANUAL (05/20/2024 9:42 AM [facility]) Only the most recent of15 resultswithin the time period is included. Neutrophil % 8(L) 41 - 74 % 05/20/2024 12:18 PM [facility] Lymphocyte % 39 17 - 47 % 05/20/2024 12:18 PM [facility] Monocyte % 51(H) 3 - 11 % 05/20/2024 12:18 PM [facility] Eosinophil % 2 0 - 7 % 05/20/2024 12:18 PM [facility] Neutrophil Absolute 0.07(L) 1.60 - 7.50 x10E9/L 05/20/2024 12:18 PM [facility] Lymphocyte Absolute 0.35(L) 1.00 - 4.40 x10E9/L 05/20/2024 12:18 PM [facility] Monocyte Absolute 0.46 0.15 - 1.00 x10E9/L 05/20/2024 12:18 PM [facility] Eosinophil Absolute 0.02 0.00 - 0.60 x10E9/L 05/20/2024 12:18 PM [facility] RBC Morphology REVIEWED 05/20/2024 12:18 PM [facility] Microcytosis MODERATE(A) (none) 05/20/2024 12:18 PM [facility] Schistocytes MODERATE(A) (none) 05/20/2024 12:18 PM [facility] Large Platelets PRESENT(A) (none) 12:18 PM [facility] Blood BLOOD SPECIMEN / Unknown Venipuncture / Unknown 05/20/2024 9:42 AM [facility] 05/20/2024 10:14 AM [facility] Cindy Garcia MD LAB - HEMATOLOGY ORD ERABLES [facility] [address] [place] [address], [facility] [phone] * FLOW CYTOMETRY BONE MARROW (05/15/2024 1:35 PM [facility]) Only the most recent of3 resultswithin the time period is included. Case Report Flow Cytometry Case: [id number] Authorizing Provider: Chapis Prabhakar APRN-CNP Collected: 05/15/2024 01:35 PM Ordering Location: [facility] Received: 05/15/2024 03:04 PM Pathologist: Guillermo Brown MD Specimen: Bone Marrow 05/22/2024 8:46 AM [facility] Addendum 1 This addendum is issued to report the results of minimal residual disease (MRD) flow cytometric analysis performed by the [facility], [address] [place] [address]. B one marrow aspirate - No abnormal [...] part represent peripheral blood. 05/22/2024 8:46 AM [facility] Addendum electronically signed by Angeles Rosado MD on 05/22/2024 at 8:46 AM Final Diagnosis Bone marrow, flow cytometry: - No significant B-cell, increased blast, or immature monocyte population detected 05/22/2024 8:46 AM [facility] Flow Cytometry Interpretation Viability: 75% B-cells: no significant population T-cells: not increased Blasts: not increased, ~1.5% represent CD34+ myeloblasts, ~23% of overall events are mature CD14+/CD64+ monocytes with no immunophenotypic aberrancies. MRD sent: Yes A bone marrow aspirate smear prepared from the flow cytometry specimen has been reviewed for quality control technician purposes. 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 A-2 Flow CD10 A-3 Flow CD13 A-5 Flow CD20 A-11 Flow CD2 A-13 Flow CD14 A-16 Flow CD117 A-17 Flow CD11b A-18 Flow CD11c A-1 Flow CD5 A-4 Flow CD19 A-6 Flow CD33 A-7 Flow CD34 A-8 Flow CD45 A-12 Flow CD7 A-14 Flow CD56 A-15 Flow CD64 A-9 [place]+CD19+ A-10 Lambda+CD19+ A-19 Flow HLA-DR 05/22/2024 8:46 AM [facility] Pathologist Location at [facility] 05/22/2024 8:46 AM [facility] Disclaimer Test performed at [facility], [facility] [place], [place], [address]. *The established laboratory minimum viability is 70%. [...] high complexity clinical testing. 05/22/2024 8:46 AM [facility] Embedded Images 8:46 AM [facility] Pathology/Cytolo gy BONE MARROW SPECIMEN / Unknown Collection / Unknown 05/15/2024 1:35 PM [facility] 05/15/2024 3:04 PM [facility] Chapis JOLLEY LAB - PATHOLOGY/CY TOLOGY ORDERABLES [facility] [address] [id number] [phone] * BONE MARROW BIOPSY (STL) (05/15/2024 1:35 PM [facility]) Only the most recent of3 resultswithin the time period is included. Case Report Bone Marrow Patholog y Report Case: [id number] Authorizing Provider: Chapis Prabhakar APRN-CNP Collected: 05/15/2024 01:35 PM Ordering Location: [facility] Received: 05/15/2024 03:04 PM Pathologist: Guillermo Brown MD Specimens: A) - Bone Marrow Clot B) - Bone Marrow Core C) - Bone Marrow Aspirate D) - Blood Peripheral 05/16/2024 3:02 PM [facility] Final Diagnosis Bone marrow, aspirate, clot section, and core biopsy: - Normocellular marrow with marked erythroid hyperplasia, myeloid hypoplasia and monocytic hyperplasia. - No overt acute leukemia seen. - See description. Peripheral blood smear: - Bicytopenia. - See description. 05/16/2024 3:02 PM [facility] Comment The significance of the monocytosis is unclear. By flow cytometry, these appear mature. These likely represent reactive cells. Minimal residual disease flow cytometry is pending. Immunohistochemistry is performed to assess staining cells in an architectural context: CD34 is negative for increased blasts (<2% of marrow cellularity), CD117 highlights early erythroid precursor cells. 05/16/2024 3:02 PM [facility] Peripheral Smear Description RBC: normocytic anemia. WBC: leukopenia with absolute neutropenia and lymphopenia. Platelets: normal in number. 05/16/2024 3:02 PM [facility] Bone Marrow Aspirate Differential [...] stain): no ring sideroblasts. 05/16/2024 3:02 PM [facility] Bone Marrow Core Biopsy [...] similar to core biopsy. 05/16/2024 3:02 PM [facility] Flow Cytometry Summary Bone marrow, flow cytometry ([id number]): - No significant B-cell, increased blast, or immature monocyte population detected 05/16/2024 3:02 PM [facility] Clinical History AML. 05/16/2024 3:02 PM [facility] Gross Description The requisition [...] in cassette B1. /VIVIAN 05/16/2024 3:02 PM [facility] Pathologist Location at [facility] 05/16/2024 3:02 PM [facility] Disclaimer The performance characteristics of all immunohistochemical and indirect immunofluorescence stains (if any) cited in this report were determined by the Histopathology Laboratory of [facility]. Some of these tests were [...] the attending (teaching) pathologist. 05/16/2024 3:02 PM [facility] Embedded Images 05/16/2024 3:02 PM [facility] Pathology/Cytology PERIPHERAL BLOOD / Unknown Collection / Unknown 05/15/2024 1:35 PM [facility] 05/15/2024 3:04 PM [facility] Miscellaneous samples (specimen) BONE MARROW SPECIMEN / Unknown 05/15/2024 1:35 PM [facility] 05/15/2024 3:04 PM [facility] Miscellaneous samples (specimen) SPECIMEN FROM BONE MARROW OBTAINED BY ASPIRATION / Unknown 05/15/2024 1:35 PM [facility] 05/15/2024 3:04 PM [facility] Miscellaneous samples (specimen) PERIPHERAL BLOOD / Unknown 05/15/2024 1:35 PM [facility] 05/15/2024 3:49 PM [facility] Chapis Prabhakar DRAPERY HAND-MUSHROOM FARMER LAB - PATHOLOGY/CY TOLOGY ORDERABLES [facility] [address] [place] [address], [facility] [phone] * LAB MISC TEST (NOT BLOOD) (05/15/2024 1:35 PM [facility]) Only the most recent of4 resultswithin the time period is included. Test Name Tempus xT + xR 05/22/2024 4:32 PM [facility] REF LAB NON INTERF Test Result See Scanned Report 05/22/2024 4:32 PM [facility] REF LAB NON INTERF Comment Ref Lab Tempus 05/22/2024 4:32 PM [facility] REF LAB NON INTERF Other BONE MARROW SPECIMEN / Unknown Collection / Unknown 05/15/2024 1:35 PM [facility] 05/15/2024 4:01 PM [facility] Chapis Prabhakar ANITA-MUSHROOM FARMER LAB - BODY FLUID O RDERABLES [facility] REF LAB NON INTERF [address] [place] [address], [facility] [phone] * CHROMOSOME ANALYSIS BONE MARROW PANEL (05/15/2024 1:35 PM [facility]) Only the most recent of2 resultswithin the time period is included. Pathologist [facility] Chromosome Analysis Bone Marrow See Note Normal 05/22/2024 1:12 PM [facility] [employer] ([facility]) Comment: Test [...] reviewed and approved by Oliver Muhammad, PhD, [facility] This result has been reviewed and approved by Emily Street MD A portion of this analysis was performed at the following location(s): [facility] CG-KS#2 [facility] CG-IN#1 INTERPRETIVE INFORMATION: Chromosome Analysis, Bone Marrow This test was developed and its performance characteristics determined by [facility]. It has not been cleared or approved by the US Food and Drug Administration. This test was performed in a CLIA certified laboratory and is intended for clinical purposes. [facility] Chromosome Analysis Bone Marrow See Note 05/22/2024 1:12 PM [facility] [employer] ([facility]) Comment: Authorized individuals can access the [email or web address] Enhanced Report with an [email or web address] Connect account using the following link. Your local lab can assist you in obtaining the patient report if you don't have a Connect account. [email or web address] Performed By: [facility] [address] [place] [address] Admissions Clerk: Uche Morley MD, PhD CLIA Number: [id number] Bone marrow BONE MARROW SPECIMEN / Unknown 05/15/2024 1:35 PM [facility] 05/15/2024 3:04 PM [facility] Chapis Prabhakar DRAPERY HAND-MUSHROOM FARMER LAB - PATHOLOGY/CY TOLOGY ORDERABLES [facility] ([facility]) [address] * EKG 12-LEAD - HOSPITAL PERFORMED (04/22/2024 1:27 PM [facility]) Only the most recent of3 resultswithin the time period is included. Ventricular Rate 61 BPM [facility]USE Atrial Rate 61 BPM [facility] P-R Interval 112 ms [facility] MUSE QRS Duration ms 126 ms [facility] Q-T Interval ms 476 ms [facility] QTC Calculation (Bezet) 479 ms [facility] MUSE Calculated P Williams 84 degrees [facility] MUSE Calculated R Williams 36 degrees [facility]USE Calculated T Williams -163 degrees [facility] MUSE Interpretation EKG NORMAL SINUS RHYTHM NON-SPECIFIC INTRA-VENTRICULA R CONDUCTION BLOCK T WAVE ABNORMALITY, CONSIDER INFERIOR ISCHEMIA T WAVE ABNORMALITY, CONSIDER ANTEROLATERAL ISCHEMIA ABNORMAL ECG WHEN COMPARED WITH ECG OF 18-MAR-2024 13:48, NO SIGNIFICANT CHANGE WAS FOUND Confirmed by HANSEL VASQUES MD ([id number]) on 04/23/2024 8:31:57 AM [facility] MUSE 04/22/2024 1:27 PM [facility] 04/23/2024 8:31 AM [facility] Cindy Garcia MD ECG ORDERABLES [facility] MUSE * QUANTIFERON-TB GOLD PLUS 4-TUBE (04/16/2024 1:43 PM [facility]) QuantiFERON Mitogen Minus NIL 9.09 IU/mL 04/18/2024 11:11 PM [facility]) QuantiFERON Nil Value 0.04 IU/mL 04/18/2024 11:11 PM [facility]) QuantiFERON Plus TB1 Minus NIL 0.00 <=0.34 IU/mL 04/18/2024 11:11 PM [facility]) QuantiFERON Plus TB2 Minus NIL 0.00 <=0.34 IU/mL 04/18/2024 11:11 PM [facility]) QuantiFERON-TB Gold Plus Negative Negative 04/18/2024 11:11 PM [facility] ([facility]) Comment: INTERPRETIVE INFORMATION:Quantiferon TB Gold [...] Mycobacterium tuberculosis Infection -- [place], 2010 (http://www.cdc.gov/mmwr/preview/mmwrhtml/iq6205z1.htm), for more information concerning test performance in low-prevalence populations and use in occupational screening. Performed By: [facility] [address] [place] [address] Admissions Clerk: Uche Morley MD, PhD CLIA Number: [id number] Blood BLOOD SPECIMEN / Unknown Venipuncture / Unknown 04/16/2024 1:43 PM [facility] 04/16/2024 2:03 PM [facility] Cindy Garcia MD LAB - CHEMISTRY CHELI MONREAL Performing Organization Address City/[facility]/ZIP Co de Phone Number [facility] ([facility]) [address] [place] [id number] * LDH BLOOD (04/16/2024 10:26 AM [facility]) Only the most recent of13 resultswithin the time period is included. [facility] LDH Total 197 125 - 243 Units/L 04/16/2024 11:14 AM [facility] Blood BLOOD SPECIMEN / Unknown Venipuncture / Unknown 04/16/2024 10:26 AM [facility] 04/16/2024 10:48 AM [facility] Cindy Garcia MD LAB - CHEMISTRY CHELI MONREAL [address] [address], [facility] [phone] * IR Tim Cath Insert (04/11/2024 9:45 AM [facility]) Anatomical Region Laterality Modality Chest X-Ray Angiograph y 04/11/2024 9:19 AM [facility] Impressions 04/11/2024 3:43 PM [facility] Impression: Successful placement of a single lumen 8 Swiss x 23 cm chest power port via [...] evaluation, please review the evaluation forms in [facility]. For details on monitored clinical parameters during the intra-service sedation time, please review the procedure nurse documentation in [facility]. Report dictated by Eduardo Coleman MD, PhD (enrollment services vice president). > Dictated by Eduardo Coleman MD (Steam Hoist Operator) 04/11/2024 9:19 AM IDavian DO have personally reviewed and interpreted this examination/study. > Interpreting Provider: Davian Marshall DO on 04/11/2024 3:43 PM Narrative 04/11/2024 3:43 PM [facility] PROCEDURE: IR TIM CATH INSERT, DATE/TIME OF EXAM: 04/11/2024 5:49 AM, LOCATION [facility] INDICATION: C92.00: Acute myeloid leukemia [...] chest. 3.Fluoroscopy-guided placement of single lumen 8 Swiss x 23 cm chest power port via [...] draped in the usual sterile manner. A molder hand film of chest was obtained, which was [...] DATE/TIME OF EXAM: 04/11/2024 5:49 AM, LOCATION [facility] INDICATION: C92.00: Acute myeloid leukemia [...] chest. 3.Fluoroscopy-guided placement of single lumen 8 Swiss x 23 cm chestpower port via the [...] and draped inthe usual sterile manner. A molder hand film of chest was obtained, which was [...] the procedure well and [facility] [place] [facility] [place] [facility]. There were no immediate complicationsassociated with the procedure. Impression: Successful placement of a single lumen 8 Swiss x 23 cmchest power port via the [...] intravenously in my presence, and monitored by [facility] as an independent trained observer who [...] evaluation, please review the evaluation forms in [facility]. For details on monitored clinical parameters during the intra-service sedation time, please review the procedure nurse documentation in [facility]. Report dictated by Eduardo Coleman MD, PhD (enrollment services vice president). > Dictated by Eduardo Coleman MD (Steam Hoist Operator) 04/11/2024 9:19AM Davian Post DO have personally reviewed and interpreted this examination/study. > Interpreting Provider: Davian Marshall DO on 04/11/2024 3:43 PM Cindy Garcia MD IR ORDERABLES * PT-INR [facility] (04/11/2024 7:20 AM BASKETBALL SCOUT) Only the most recent of11 resultswithin the time period is included. PT 14.6 12.1 - 14.8 Seconds 04/11/2024 7:56 AM BASKETBALL SCOUT [facility] INR 1.2 See Comment 04/11/2024 7:56 AM BASKETBALL SCOUT [facility] Comment:The suggested therap eutic range for standard coumadin (warfarin) therapy is an INR of 2.0-3.0. For high-risk patients (Mechanical Mitral Valve Prosthesis, etc.), the suggested prophylactic therapeutic range is an INR of 2.5-3.5. Blood BLOOD SPECIMEN / Unknown Venipuncture / Unknown 04/11/2024 7:20 AM BASKETBALL SCOUT 04/11/2024 7:23 AM BASKETBALL SCOUT Cindy Garcia MD LAB - COAGULATION OR DERABLES Performing Organization Address City/[facility]/ZIP Co de Phone Number [address] [address], [facility] [phone] * URIC ACID BLOOD (04/01/2024 3:12 PM BASKETBALL SCOUT) Only the most recent of13 resultswithin the time period is included. Uric Acid 4.0 3.5 - 7.2 mg/dL 04/01/2024 5:52 PM BASKETBALL SCOUT [facility] Blood BLOOD SPECIMEN / Unknown Lab Venipuncture / Unknown 04/01/2024 3:12 PM BASKETBALL SCOUT 04/01/2024 5:30 PM BASKETBALL SCOUT Cindy Garcia MD LAB - CHEMISTRY ORDE RABLES Performing Organization Address City/[facility]/ZIP Co de Phone Number [facility] [address] [place] [address], [facility] [phone] * ERYTHROPOIETIN (04/01/2024 3:12 PM BASKETBALL SCOUT) Erythropoietin 22 4 - 27 mU/mL 04/02/2024 11:36 AM BASKETBALL SCOUT [employer] ([facility]) Comment: INTERPRETIVE INFORMATION: Erythropoietin Normal [...] from therapy with recombinant EPO ([facility] [id number],1989). Performed By: [facility] [address] [place] [address] Admissions Clerk: Uche Morley MD, PhD CLIA Number: [id number] Blood BLOOD SPECIMEN / Unknown Lab Venipuncture / Unknown 04/01/2024 3:12 PM BASKETBALL SCOUT 04/01/2024 3:22 PM BASKETBALL SCOUT Cindy Garcia MD LAB - CHEMISTRY CHELI MONREAL [facility] Organization Address City/State/ZIP Co de Phone Number [facility] [facility]) [address] [place] [address], [facility] * SOLUBLE TRANSFERRIN RECEPTOR (04/01/2024 3:12 PM BASKETBALL SCOUT) [facility] Soluble Transferrin Receptor 3.3 2.2 - 5.0 mg/L 04/02/2024 9:13 PM BASKETBALL SCOUT [employer] ([facility]) Comment: INTERPRETIVE INFORMATION: Soluble Transferrin [...] Fe Status High Normal High Performed By: [facility] [address] [place] [address] Admissions Clerk: Uche Morley MD, PhD CLIA Number: [id number] Blood BLOOD SPECIMEN / Unknown Lab Venipuncture / Unknown 04/01/2024 3:12 PM BASKETBALL SCOUT 04/01/2024 3:22 PM BASKETBALL SCOUT Cindy Garcia MD LAB - CHEMISTRY CHELI MONREAL Performing Organization Address City/[facility]/ZIP Co de Phone Number [address] * PHOSPHORUS BLOOD (04/01/2024 3:12 PM BASKETBALL SCOUT) Only the most recent of13 resultswithin the time period is included. Phosphorus 2.9 2.8 - 5.1 mg/dL 04/01/2024 5:52 PM BASKETBALL SCOUT [facility] Blood BLOOD SPECIMEN / Unknown Lab Venipuncture / Unknown 04/01/2024 3:12 PM BASKETBALL SCOUT 04/01/2024 5:30 PM BASKETBALL SCOUT Cindy Garcia MD LAB - CHEMISTRY CHELI MONREAL [address] [address], [place] [phone] * MAGNESIUM BLOOD (04/01/2024 3:12 PM BASKETBALL SCOUT) Only the most recent of13 resultswithin the time period is included. Pathologist [facility] Magnesium 2.1 1.6 - 2.6 mg/dL 04/01/2024 4:25 PM BASKETBALL SCOUT [facility] Comment:Hemolysis detected i n this specimen. Hemolysis is known to cause elevations in this analyte. Caution should be exercised in the interpretation of this result. Recommend repeat testing if clinically indicated. Blood BLOOD SPECIMEN / Unknown Lab Venipuncture / Unknown 04/01/2024 3:12 PM BASKETBALL SCOUT 04/01/2024 3:36 PM BASKETBALL SCOUT Cindy Garcia MD LAB - CHEMISTRY CHELI MONREAL [address] [address], [facility] [phone] * LAB RESULTS ORDER (03/25/2024) 03/25/2024 Narrative 03/25/2024 Ordered by an unspecified provider. Scanned Document LAB - THERAPEUTIC DR VANCE MONITORING ORDERABLES * PTT [facility] (03/23/2024 12:25 AM BASKETBALL SCOUT) Only the most recent of10 resultswithin the time period is included. [facility] APTT 35.4 23.0 - 38.4 Seconds 03/23/2024 1:31 AM [facility] Comment:Suggested therapeuti c range for full dose I.V. unfractionated heparin therapy for venous thromboembolism is 71 to 109 seconds. Blood BLOOD SPECIMEN / Unknown Venipuncture / Unknown 03/23/2024 12:25 AM BASKETBALL SCOUT 03/23/2024 1:05 AM BASKETBALL SCOUT Ghanshyam Dewey PA-C LAB - COAGULATION OR DERABLES [address] [address], [place] [phone] * PATHOLOGY PERIPHERAL SMEAR REVIEW (03/18/2024 8:33 AM BASKETBALL SCOUT) [facility] Path Review Confirmed 03/18/2024 2:44 PM [facility] Blood BLOOD SPECIMEN / Unknown Lab Venipuncture / Unknown 03/18/2024 8:33 AM BASKETBALL SCOUT 03/18/2024 8:46 AM BASKETBALL SCOUT Narrative [facility] - 03/18/2024 2:44 PM BASKETBALL SCOUT A rare blast seen. Ghanshyam Dewey PA-C LAB - PATHOLOGY/CYTO LOGY ORDERABLES Performing Organization Address City/[facility]/ZIP Co de Phone Number [facility] [address] [place] [phone], [facility] [phone] * ECHO COMPLETE W CONTRAST (03/15/2024 1:47 PM BASKETBALL SCOUT) IVSd 2D 1.314 cm [facility] CV FUJ [...] Region Laterality Modality Ultrasound 03/15/2024 2:04 PM BASKETBALL SCOUT Narrative 03/15/2024 5:17 PM BASKETBALL SCOUT Summary * The left ventricle is normal [...] [facility] Primary Location: [facility] Info Technical Quality: Adequate Exam Type: [...] Attending Physician: Ted Soler Fellow: Josh Knight Ham Rolling Machine Operator: Dhruv Sorto Left Ventricle Left ventricular [...] [facility] Primary Location: [facility] EStudy Info Technical Quality: Adequate Exam [...] Attending Physician: Ted Soler Fellow: Josh Knight Ham Rolling Machine Operator: Dhruv Sorto Left Ventricle Left ventricular [...] BLOOD OR BONE MARROW (03/15/2024 9:05 AM BASKETBALL SCOUT) [facility] MDS Panel by Fish See Note Normal 024 11:26 AM BASKETBALL SCOUT [employer] ([facility]) Comment: Test [...] 7, deletion 7q31, trisomy 8, or deletion 06i25-w86.1. This analysis was performed with the MDS panel probes D5S23/EGR1, D7Z1/J7M603, CEP8 ([employer]), and Del(20q) ([employer]). A total of 200 cells were scored for each probe. Cytogenomic Nomenclature (ISCN): nuc nereyda(D5S23,EGR1,D7Z1,R3G933,D8Z2,L84F440,MYBL2)x2[200' This result has been reviewed and approved by Nabila Gonzalez, PhD, [facility] A portion of this analysis was performed at the following location(s): [facility] Site CG-[place]#2 INTERPRETIVE INFORMATION: MDS Panel by FISH This test was developed and its performance characteristics determined by [facility]. It has not been cleared or approved by the US Food and Drug Administration. This test was performed in a CLIA certified laboratory and is intended for clinical purposes. EER MDS Fish Panel See Note 2023 11:26 AM BASKETBALL SCOUT [employer] ([facility]) Comment: Authorized individuals can access the [facility] Enhanced Report using the following link: [email or web address] Performed By: [facility] [address] [place] [address] Admissions Clerk: Uche Morley MD, PhD CLIA Number: [id number] Other BONE MARROW SPECIMEN / Unknown Collection / Unknown 03/15/2024 9:05 AM BASKETBALL SCOUT 03/15/2024 9:30 AM BASKETBALL SCOUT Rodo Perez MD LAB - PATHOLOG Y/CYTOLOGY ORDERABLES [facility] ([facility]) [address] [phone], [facility] * FISH AML PANEL BLOOD OR BM RFLX PML/DANTE (03/15/2024 9:05 AM BASKETBALL SCOUT) Only the most recent of2 resultswithin the time period is included. [facility] FISH AML Panel See Note Normal 03/25/2024 10:34 AM BASKETBALL SCOUT [employer] ([facility]) Comment: Test Performed: Acute Myeloid Leukemia Panel by FISH (FISHAML) Specimen Type: Bone Marrow Indication for Testing: Myelodysplastic syndrome, unspecified RESULT Normal FISH Result inv(3) or t(3;3) GATA2::MECOM Fusion: not detected Deletion 5q: not detected Monosomy 7: not detected Deletion 7q: not detected t(8;21) RUNX1::HPSF3Y9 Fusion: not detected 11p15 (NUP98) Rearrangement: not detected 11q23 (KMT2A) Rearrangement: not detected inv(16) or t(16;16) CBFB::MYH11 Fusion: not detected INTERPRETATION There was no evidence of GATA2::MECOM (also known as RPN1-EVI1) fusion due to 3q21/3q26.2 inversion or translocation, deletion 5q31, monosomy 7, deletion 7q31, RUNX1::NVMP2Z3 fusion due to translocation (8;21)(q21.3;q22), 11p15 (NUP98) rearrangement, 11q23 KMT2A (MLL) rearrangement, or CBFB::MYH11 fusion due to either 16p13.1/16q22 inversion or translocation. This analysis was performed with the AML panel probes RPN1/MECOM, D5S23/EGR1, D7Z1/N0K745, RUNX1/WSPP1C6 ([employer]), NUP98 and CBFB-MYH11 ([facility]), and MLL (KMT2A) ([employer]). A total of 200 cells were scored for each probe. Cytogenomic Nomenclature (ISCN): nuc nereyda(RPN1,MECOM,D5S23,EGR1,D7Z1,M3D075,FLYR8K1,NUP98,KMT2A,MYH11,CBF B,RUNX1)x2[200' This result has been reviewed and approved by Mundo Mejia, PhD, [facility] A portion of this analysis was performed at the following location(s): [facility] Site [place]#1 INTERPRETIVE INFORMATION: AML Panel by FISH This test was developed and its performance characteristics determined by [facility]. It has not been cleared or approved by the US Food and Drug Administration. This test was performed in a CLIA certified laboratory and is intended for clinical purposes. EER AML Panel by FISH See Note 03/25/2024 10:34 AM BASKETBALL SCOUT [employer] ([facility]) Comment: Authorized individuals can access the [email or web address] Enhanced Report using the following link: [email or web address] Performed By: [facility] [address] [place] [address] Admissions Clerk: Uche Morley MD, PhD CLIA Number: [id number] Other BONE MARROW SPECIMEN / Unknown Collection / Unknown 03/15/2024 9:05 AM BASKETBALL SCOUT 03/15/2024 9:30 AM BASKETBALL SCOUT Rodo Perez MD LAB - PATHOLOG Y/CYTOLOGY ORDERABLES [facility] [facility] ([facility]) [address] [place] [address], [facility] * MYELOID MALIGNANCIES MUTATION PNL (03/15/2024 9:05 AM BASKETBALL SCOUT) Only the most recent of2 resultswithin the time period is included. Interpretation Myeloid Malignancy PNL See Note 03/28/2024 2:06 PM BASKETBALL SCOUT [facility] [employer] ([facility]) Comment: Myeloid Malignancies Mutation Panel NGS Submitted diagnosis or diagnosis under consideration for variant interpretation: Myelodysplastic syndrome, unspecified Note: Prior NGS testing performed on this patient (most recent [facility] accession [id number]) was reviewed in conjunction with the current case to compare molecular variants reported. The previously reported molecular variants DNMT3A, IDH1, and CUX1 are again detected in the current study. In addition, new molecular variants in STAG2, BCOR, JAK2, and CEBPA are now detected. TIER 1: Variants of Known Clinical Significance in Hematologic Malignancies 1. IDH1 c.394C>A, p.Hnk571Lkl ([id number]) VAF: 38.4% IDH1 encodes an enzyme that catalyzes the conversion of isocitrate to alpha-ketoglutarate in the citric acid cycle (23). Somatic mutations of IDH1 are found in 4-12% of patients with myelodysplastic syndrome (MDS).This mutation has been reported in hematologic malignancies (4). The prognostic significance of mutated IDH1 in MDS is uncertain (20) (27) (7) (14) (19) (32). 2. DNMT3A c.2206C>T, p.Nsa677Cki ([id number]) VAF: 42.2% DNMT3A encodes a DNA [...] stem cell transplantation (2). 3. DNMT3A c.2407A>G, p.Rvv930Hmo ([id number]) VAF: 38.8% This mutation has also been reported in hematologic malignancies (4). 4. JAK2 c.1849G>T, p.Cia327Zfa (NM_[id number]) VAF: 14.4% JAK2 encodes a non-receptor protein tyrosine kinase that regulates STAT [facility] factors in response to cytokine receptor signaling (13). JAK2 mutations have been reported in 3-6% of patients with MDS (6) (15) (31). This JAK2 mutation (p.Nhu808Tre) has also been reported in approximately 10-25% of patients with myelodysplastic/myeloproliferative neoplasms (MDS/MPN) (31) (21). This particular JAK2 mutation occurs in the pseudokinase (JH2) domain and leads to activation of the NOLAN-STAT pathway signaling. The prognostic significance of JAK2 mutations in MDS is unclear (6). 5. STAG2 c.1840C>T, p.Vhc357* ([id number]) VAF: 31.7% STAG2 encodes a subunit [...] unmutated cohesin genes (29). 6. BCOR c.3649C>T, p.Dqn1332* ([id number]) VAF: 9.6% BCOR encodes a transcriptional corepressor that interacts with BCL-6 and histone deacetylases (HDACs) (5) (12). Mutations in BCOR are seen in 4% of patients with MDS (5) (11). BCOR mutations in MDS are often frameshift and nonsense mutations that result in pwpr-qy-yfijzknh (5) (11). This mutation is predicted to alter the normal function of BCOR. BCOR mutations are associated with a higher incidence of AML transformation in MDS patients and shorter overall survival in MDS patients (5) (11) (16). 7. BCOR c.635_638del, p.Grh923Mmvjf*3 ([id number]) VAF: 6.2% This mutation is also predicted to alter the normal function of BCOR. TIER 2: Variants of Unknown Clinical Significance in Hematologic Malignancies 1. CEBPA c.1074_*9del, p.*359Cysext*58 (NM_[id number]) VAF: 4.7% CEBPA encodes a protein that is a member of the basic region leucine zipper family of [facility] factors (18). Somatic mutations of CEBPA [...] if any, is uncertain. 2. CUX1 c.3085G>A, p.Klg3387Ous (NM_[id number]) VAF: 44.8% This variant has been rarely reported in hematologic malignancies (1) (10), to the best of our knowledge. References 1: Montejo-Mistry P, Emmanuelle B, Zhanna MC et al, Assessment of Minimal Residual Disease by Next Generation Sequencing in Peripheral Blood as a Complementary Tool for Personalized Transplant Monitoring in Myeloid Neoplasms. J Clin Med 2020. PMID:[id number] 2: Juan Jackson, Ulises Kim et al, Somatic mutations predict poor outcome in patients with myelodysplastic syndrome after hematopoietic stem-cell transplantation. J Clin Oncol 2014. PMID:87581077 3: cBioPortal: http://www.cbioportal.org/ 4: COSMIC: https://cancer.vipin.ac.uk/cosmic 5: Braulio F, Yu V, Nagata Y et al, BCOR and BCORL1 mutations in myelodysplastic syndromes and related disorders. Blood 2013. PMID:33988530 6: Bill Payne, Jennifer Rubin, Víctor Stroud et al, JAK2 Mutations Are Rare and Diverse in Myelodysplastic Syndromes: Case Series and Review of the Literature. Hematol Rep 2022. PMID:97607540 7: Jahaira GRAY, Kamla Estrada, Mary Mason et al, IDH1 and IDH2 mutations in myelodysplastic syndromes and role in disease progression. Leukemia 2016. PMID:57962439 8: Asiya Post, Day Rubin, Lenin MURPHY et al, Frequency, onset and clinical impact of somatic DNMT3A mutations in therapy-related and secondary acute myeloid leukemia. Haematologica 2012. PMID:67937446 9: Nuha Broussard, Idania D, Luanne Payne et al, CEBPA polymorphisms and mutations in patients with acute myeloid leukemia, myelodysplastic syndrome, multiple myeloma and non-Hodgkin's lymphoma. Blood Cells Mol Dis 2008. PMID:36375468 10: Cassandra B, Cornell M, Alexis A et al, DNA methylation epitypes highlight underlying developmental and disease pathways in acute myeloid leukemia. Genome Res 2020. PMID:88745198 11: Jenna Burton, Alondra AB et al, Whole-exome sequencing identifies somatic mutations of BCOR in acute myeloid leukemia with normal karyotype. Blood 2011. PMID:55066042 12: Lin RUEDA, Yashira W, Darcie E et al, BCoR, a novel corepressor involved in BCL-6 repression. Genes Dev 2000. PMID:55584048 13: Fabian SS, Jen SJ, Amandeep LR et al, Nolan/STAT pathways in cytokine signaling and myeloproliferative disorders: approaches for targeted therapies. Genes Cancer 2010. PMID:30151785 14: Charity Pulido V, Grayson L et al, Mutations of IDH1 and IDH2 genes in early and accelerated phases of myelodysplastic syndromes and MDS/myeloproliferative neoplasms. Leukemia 2010. PMID:02697426 15: Malaika M, Catherine Rubin, Ahsan W et al, Molecular analysis of myelodysplastic syndrome with isolated deletion of the long arm of chromosome 5 reveals a specific spectrum of molecular mutations with prognostic impact: a study on 123 patients and 27 genes. Haematologica 2017. PMID:79702651 16: Gregoria BAR, Meliton T, Valerie Payne et al, Spectrum and prognostic relevance of van driver helper gene mutations in acute myeloid leukemia. Blood 2016. PMID:45220546 17: Mel Hughes, Milton P et al, Dominant-negative mutations of CEBPA, encoding CCAAT/enhancer binding protein-alpha (C/EBPalpha), in acute myeloid leukemia. Yusra Emely 2001. PMID:53640516 18: Mel Hughes, Complexity of CEBPA dysregulation in human acute myeloid leukemia. Clin Cancer Res 2009. PMID:78537092 19: Nargis Estrada, Jose M, Hugh L et al, Clinical and biological implications of van driver helper mutations in myelodysplastic syndromes. Blood 2013. PMID:32909804 20: Eileen MURPHY, Rajinder CHRISTY, Juju OTERO et al, Differential prognostic effect of IDH1 versus IDH2 mutations in myelodysplastic syndromes: a [facility] study of 277 patients. Leukemia 2012. PMID:07512141 21: Eileen MURPHY, George TL, Genomics of myelodysplastic syndrome/myeloproliferative neoplasm overlap syndromes. Hematology Am Soc Hematol Educ Program 2020. PMID:77077539 22: Marty C, Malika C, Bovitaly N et al, Favorable prognostic significance of CEBPA mutations in patients with de elinor acute myeloid leukemia: a study from the Acute Leukemia [employer] Association (JOSE). Blood 2002. PMID:30909550 23: Bulmaro BENTON, Josse H, Isocitrate dehydrogenase 1 and 2 mutations in cancer: alterations at a crossroads of cellular metabolism. J Natl Cancer Inst 2010. PMID:63022424 24: Jose A, Ivan V, Yudi U et al, [place] analysis of DNMT3A mutations in hematological malignancies. Leukemia 2013. PMID:80994789 25: Kim AH, Lisa-Hussein O, Arnulfo REINOSO et al, The role of mutations in epigenetic regulators in myeloid malignancies. Yusra Rev Cancer 2012. PMID:48458300 26: Robby Mason, Hubert ISSA, Efrem M et al, CEBPA mutations in 4708 patients with acute myeloid leukemia: differential impact of bZIP and TAD mutations on outcome. Blood 2021. PMID:87338780 27: Fabiola Mason, Roverto EM, Sam J et al, IDH1 mutations in patients with myelodysplastic syndromes are associated with an unfavorable prognosis. Haematologica 2010. PMID:86985853 28: Lisa Richmond, Bro Valdivia et al, Rare occurrence of DNMT3A mutations in myelodysplastic syndromes. Haematologica 2011. PMID:24778877 29: Josey S, Liam AD, Joan H et al, Genetic alterations of the cohesin complex genes in myeloid malignancies. Blood 2014. PMID:57147625 30: Barrett MERRITT, Tono Stroud, Jossue Amador et al, Recurrent DNMT3A mutations in patients with myelodysplastic syndromes. Leukemia 2011. PMID:17136877 31: Lawrence Z, Juan Diego B, Comparison and Implications of Mutational Profiles of Myelodysplastic Syndromes, Myeloproliferative Neoplasms, and Myelodysplastic/Myeloproliferative Neoplasms: A [place]-Analysis. Front Oncol 2020. PMID:05042357 32: Sarabia N, Sarabia F, Yuval N et al, IDH1 Mutation Is an Independent Inferior Prognostic Indicator for Patients with Myelodysplastic Syndromes. Acta Haematol 2017. PMID:19928478 33: Ochoa Stroud, Gabriella R, Hieu ALBERTS, DNMT3A in haematological malignancies. Yusra Rev Cancer 2015. PMID:11801231 This result has been reviewed and approved by Jannette Dutta M.D. Low coverage regions: Listed below are regions where the average sequencing depth (number of times a particular nucleotide is sequenced) in at least 20% of the wandan-fl-wfmzruns is less than our stringent cutoff of [...] NOTCH1; NPM1*; NRAS; NSD1; PHF6; PIGA; PPM1D; GNQT41D; PRPF8; PTPN11; RAD21; RUNX1; SAMD9; SAMD9L; SETBP1; [...] developed and its performance characteristics determined by [employer] [facility]. It has not been cleared or approved by the U.S. Food and Drug Administration. This test was performed in a CLIA-certified laboratory and is intended for clinical purposes. Myeloid Malignancy Dx Mds Unspec 03/28/2024 2:06 PM BASKETBALL SCOUT [employer] ([facility]) Myeloid Malignancy Panel Specimen Bone Marrow 03/28/2024 2:06 PM BASKETBALL SCOUT [employer] ([facility]) EER Myeloid Malignancy See Note 03/28/2024 2:06 PM BASKETBALL SCOUT [employer] ([facility]) Comment: Authorized individuals can access the [facility] Enhanced Report using the following link: [email or web address] Performed By: [facility] [address] [place] [address] Admissions Clerk: Uche Morley MD, PhD CLIA Number: [id number] Other BONE MARROW SPECIMEN / Unknown Collection / Unknown 03/15/2024 9:05 AM BASKETBALL SCOUT 03/15/2024 9:30 AM BASKETBALL SCOUT Rodo Perez MD LAB - PATHOLOG Y/CYTOLOGY ORDERABLES [employer] ([facility]) [address] [place] [address] * FISH PML/DANTE PANEL (03/15/2024 9:05 AM BASKETBALL SCOUT) Only the most recent of2 resultswithin the time period is included. EER PML/DANTE Translocation by Fish See Note 03/17/2024 4:41 PM [facility] [employer] ([facility]) Comment: Authorized individuals can access the [email or web address] Enhanced Report using the following link: [email or web address] Performed By: [facility] [address] [place] [address] Admissions Clerk: Uche Morley MD, PhD CLIA Number: [id number] PML/DANTE Translocation by FISH See Note 03/17/2024 4:41 PM [facility] [employer] ([facility]) Comment: Test [...] reviewed and approved by Nabila Gonzalez, PhD, [facility] A portion of this analysis was performed at the following location(s): [facility] Site [place]#2 INTERPRETIVE INFORMATION: PML/DANTE Translocation by FISH This test was developed and its performance characteristics determined by [facility] [facility]. It has not been cleared or approved by the US Food and Drug Administration. This test was performed in a CLIA certified laboratory and is intended for clinical purposes. Other BONE MARROW SPECIMEN / Unknown Collection / Unknown 03/15/2024 9:05 AM BASKETBALL SCOUT 03/15/2024 9:30 AM BASKETBALL SCOUT Rodo Perez MD LAB - PATHOLOG Y/CYTOLOGY ORDERABLES [facility]) [address] * FLOW CYTOMETRY BLOOD PROFILE (03/14/2024 10:32 AM BASKETBALL SCOUT) Case Report Flow Cytometry Case: [id number] Authorizing Provider: Ghanshyam Dewey PA-C Collected: 03/14/2024 10:32 AM Ordering Location: [facility] Received: 03/14/2024 01:49 PM Pathologist: Angeles Rosado MD Specimen: Blood 03/14/2024 4:58 PM BASKETBALL SCOUT [facility] Final Diagnosis Peripheral blood, flow cytometric immunophenotypic analysis: - 1.2% myeloblasts detected - No evidence of a monoclonal B-cell population - See interpretation 03/14/2024 4:58 PM BASKETBALL SCOUT [facility] Flow Cytometry Results Differential Result Comment WBC Count /uL 1,200 Total Viability % 100.0 Lymphocytes % 80 Dim CD45 Region % 4 Monocytes % 4 Granulocytes % 13 03/14/2024 4:58 PM BASKETBALL SCOUT [facility] Flow Cytometry Interpretation Viability: 100% B-cells: polytypic, kappa:lambda ratio 1.1:1. Blasts: 1.2% of events are myeloblasts. Monocytes are mature. A peripheral blood smear prepared from the flow cytometry specimen has been reviewed for quality control technician purposes. 03/14/2024 4:58 PM [facility] Reason for test MDS (myelodysplastic syndrome) (HCC) 238.75 03/14/2024 4:58 PM [facility] Client Specimen ID # [id number] 03/14/2024 4:58 PM [facility] Pathologist Location at [facility] 03/14/2024 4:58 PM [facility] Disclaimer Test performed at [facility], [address] [place] [address], [address]. *The established laboratory minimum viability is 70%. [...] high complexity clinical testing. 03/14/2024 4:58 PM [facility] Embedded Images 4:58 PM [facility] Number of markers 19 were performed. A-2 Flow CD10 A-3 Flow CD13 A-5 Flow CD20 A-11 Flow CD2 A-13 Flow CD14 A-16 Flow CD117 A-17 Flow CD11b A-18 Flow CD11c A-1 Flow CD5 A-4 Flow CD19 A-6 Flow CD33 A-7 Flow CD34 A-8 Flow CD45 A-12 Flow CD7 A-14 Flow CD56 A-15 Flow CD64 A-9 Eastland+CD19+ A-10 Lambda+CD19+ A-19 Flow HLA-DR 03/14/2024 4:58 PM [facility] Blood BLOOD SPECIMEN / Unknown Lab Venipuncture / Unknown 03/14/2024 10:32 AM BASKETBALL SCOUT 03/14/2024 1:49 PM BASKETBALL SCOUT Ghanshyam Dewey PA-C LAB - PATHOLOGY/CYTO LOGY ORDERABLES [facility] [address] [place] [address], [facility] [phone] * CYTOMEGALOVIRUS (CMV) QUANTITATIVE PLASMA (03/13/2024 11:26 PM BASKETBALL SCOUT) [facility] CMV Quant by PCR, Interp Not detected Not detected 03/14/2024 9:00 AM BASKETBALL SCOUT [facility]CRO[facility] Blood BLOOD SPECIMEN / Unknown Venipuncture / Unknown 03/13/2024 11:26 PM BASKETBALL SCOUT 03/13/2024 11:37 PM BASKETBALL SCOUT Narrative [facility] - 03/14/2024 9:00 AM BASKETBALL SCOUT The Cytomegalovirus (CMV) DNA analysis utilized a [...] - CHEMISTRY OR DERABLES Performing Organization Address City/[facility]/ZIP Co de Phone Number [facility] [address] [place] [address], [facility] [phone] * QUINN-TOVAR VIRUS QUANT BLOOD STL (03/13/2024 11:26 PM BASKETBALL SCOUT) [facility] EBV Quant by PCR, Interp Not detected Not detected 03/14/2024 8:56 AM BASKETBALL SCOUT [facility]CRO[facility] Specimen Type Plasma 03/14/2024 8:56 AM [facility] Blood BLOOD SPECIMEN / Unknown Venipuncture / Unknown 03/13/2024 11:26 PM BASKETBALL SCOUT 03/13/2024 11:37 PM BASKETBALL SCOUT Narrative [facility]CRO[facility] - 03/14/2024 8:56 AM BASKETBALL SCOUT The Quinn-Tovar viral (EBV) DNA analysis utilized [...] Soler MD LAB - CHEMISTRY OR DERABLES [facility] [address] [place] [phone] * D-DIMER (03/13/2024 11:26 PM BASKETBALL SCOUT) [facility] D-Dimer Quantitative <0.27 <=0.50 mcg/mL FEU 03/14/2024 12:00 AM BASKETBALL SCOUT [facility] Comment: In the [...] Unknown Venipuncture / Unknown 03/13/2024 11:26 PM BASKETBALL SCOUT 03/13/2024 11:37 PM BASKETBALL SCOUT Ted Soler MD LAB - COAGULATION ORDERABLES [address] [address], [facility] [phone] * FIBRINOGEN ACTIVITY (03/13/2024 11:26 PM BASKETBALL SCOUT) Pathologist [facility] Fibrinogen Clauss 362 200 - 400 mg/dL 03/13/2024 11:59 PM BASKETBALL SCOUT [facility] Blood BLOOD SPECIMEN / Unknown Venipuncture / Unknown 03/13/2024 11:26 PM BASKETBALL SCOUT 03/13/2024 11:37 PM BASKETBALL SCOUT Ted Soler MD LAB - COAGULATION ORDERABLES Performing Organization Address City/[facility]/ZIP Co de Phone Number [address] [address], [facility] [phone] * FISH AML+MDS PANEL BLOOD OR BONE MARROW (03/04/2024 4:13 PM BASKETBALL SCOUT) Pathologist [facility] FISH AML with MDS, Therapy-Rltd AML See Note Normal 03/19/2024 4:32 PM BASKETBALL SCOUT [facility] ([facility]) Comment: Test Performed: Acute Myelogenous [...] with the Therapy-Related AML panel probes D5S23/EGR1, D7Z1/M7F558, and MLL (KMT2A) (CytoCell). A total of 200 cells were scored for each probe. Cytogenomic Nomenclature (ISCN): nuc nereyda(D5S23,EGR1,D7Z1,R4S408,KMT2A)x2[200' This result has been reviewed and approved by Charles Pablo MD, [facility] INTERPRETIVE INFORMATION: AML with MDS, Therapy-Related AML, FISH This test was developed and its performance characteristics determined by [employer]. It has not been cleared or approved by the US Food and Drug Administration. This test was performed in a CLIA certified laboratory and is intended for clinical purposes. EER AML with MDS, Therapy-Rltd AML FISH See Note 03/19/2024 4:32 PM BASKETBALL SCOUT [facility] [facility] ([facility]) Comment: Authorized individuals can access the [email or web address] Enhanced Report using the following link: [email or web address] Performed By: [employer] [address] [place] [address] Admissions Clerk: Uche Morley MD, PhD CLIA Number: [id number] Other BLOOD SPECIMEN / Unknown Collection / Unknown 03/04/2024 4:13 PM BASKETBALL SCOUT 03/04/2024 4:23 PM BASKETBALL SCOUT Cindy Garcia MD LAB - PATHOLOGY/CYTO LOGY ORDERABLES [facility] ([facility]) [address] [place] [address] * HLA TYPING LOW/HIGH RESOLUTION DPB1 (03/04/2024 4:13 PM BASKETBALL SCOUT) Typ DNA LR DPB1 Allele #1 *04 04/29/2024 2:56 PM BASKETBALL SCOUT [facility] ([facility]) Typ DNA LR DPB1 Allele #2 *11 04/29/2024 2:56 PM BASKETBALL SCOUT [facility] ([facility]) Typ DNA HR DPB1 Allele #1 *04:01:01G 04/29/2024 2:56 PM BASKETBALL SCOUT [facility] ([facility]) Typ DNA HR DPB1 Allele #2 *11:01:01G 04/29/2024 2:56 PM BASKETBALL SCOUT [facility] ([facility]) Test Methodology RTPCR/NGS 04/29/19 2:56 PM BASKETBALL SCOUT [facility] ([facility]) Date Results Entered [id number] 04/29/2024 2:56 PM BASKETBALL SCOUT [facility] ([facility]) Comment: Methodology - Next Generation Sequencing This test was developed and its performance characteristics determined by the [facility]. It has not been cleared or [...] high complexity clinical laboratory testing. CLIA ID# [id number] Performed at: [facility], [address] [place] [phone] Hollow Handle Bench Worker: Sandeep Jerry, Ph.D., D([facility]), Blood BLOOD SPECIMEN / Unknown Lab Venipuncture / Unknown 03/04/2024 4:13 PM BASKETBALL SCOUT 03/05/2024 9:56 AM BASKETBALL SCOUT Cindy Garcia MD LAB - BLOOD BANK ORD ERABLES [facility] ([facility]) [facility] [place], [place] [address] * HLA TYPING DNA LOW RESOLUTION DR,DQ (03/04/2024 4:13 PM BASKETBALL SCOUT) DR DQ Low Resolution DRB1-1 *07 04/29/2024 2:56 PM BASKETBALL SCOUT [facility] ([facility]) DR DQ Low Resolution DQB1-1 *02 04/29/2024 2:56 PM BASKETBALL SCOUT [facility] ([facility]) DR DQ Low Resolution DRB3-1 Negative 04/29/2024 2:56 PM BASKETBALL SCOUT [facility] ([facility]) DR DQ Low Resolution DRB3-2 Negative 04/29/2024 2:56 PM BASKETBALL SCOUT [facility] ([facility]) DR DQ Low Resolution DRB4-1 *01 04/29/2024 2:56 PM BASKETBALL SCOUT [facility] ([facility]) DR DQ Low Resolution DRB4-2 Negative 04/29/2024 2:56 PM BASKETBALL SCOUT [facility] ([facility]) DR DQ Low Resolution DRB5-1 Negative 04/29/2024 2:56 PM BASKETBALL SCOUT [facility] ([facility]) DR DQ Low Resolution DRB5-2 Negative 04/29/2024 2:56 PM BASKETBALL SCOUT [facility] ([facility]) DR DQ Low Resolution Methodology Real Time PCR 04/29/2024 2:56 PM BASKETBALL SCOUT [facility] ([facility]) DR DQ Low Resolution test date [id number] 04/29/2024 2:56 PM BASKETBALL SCOUT [facility] ([facility]) Comment: Methodology - Real-Time PCR This test was developed and its performance characteristics determined by the [facility]. It has not been cleared or [...] high complexity clinical laboratory testing. CLIA ID# [id number] Performed at: [facility], [address] [place] [phone] Hollow Handle Bench Worker: Sandeep Jerry, Ph.D., D([facility]), Blood BLOOD SPECIMEN / Unknown Lab Venipuncture / Unknown 03/04/2024 4:13 PM BASKETBALL SCOUT 03/05/2024 9:56 AM BASKETBALL SCOUT Cindy Garcia MD LAB - BLOOD BANK ORD ERABLES [facility] ([facility]) [address] * HLA TYPING DNA LOW RESOLUTION A,B,C (03/04/2024 4:13 PM BASKETBALL SCOUT) ABC DNA A1 *02 04/29/2024 2:56 PM BASKETBALL SCOUT [facility] ([facility]) ABC DNA A2 *30 04/29/2024 2:56 PM BASKETBALL SCOUT [facility] ([facility]) ABC DNA B1 *13 04/29/2024 2:56 PM BASKETBALL SCOUT [facility] ([facility]) ABC DNA B2 *44 04/29/2024 2:56 PM BASKETBALL SCOUT [facility] ([facility]) ABC DNA BW1 4 04/29/2024 2:56 PM BASKETBALL SCOUT [facility] ([facility]) ABC DNA BW2 4 04/29/2024 2:56 PM BASKETBALL SCOUT [facility] ([facility]) ABC DNA C1 *06 04/29/2024 2:56 PM BASKETBALL SCOUT [facility] ([facility]) ABC DNA C2 *16 04/29/2024 2:56 PM BASKETBALL SCOUT [facility] ([facility]) ABC DNA Methodology Real Time PCR 04/29/2024 2:56 PM BASKETBALL SCOUT [facility] ([facility]) ABC DNA Test Date [id number] 2:56 PM BASKETBALL SCOUT [facility] ([facility]) Comment: Methodology - Real-Time PCR This test was developed and its performance characteristics determined by the [facility]. It has not been cleared or [...] high complexity clinical laboratory testing. CLIA ID# [id number] Performed at: [facility], [address] [place] [phone] Hollow Handle Bench Worker: Sandeep Jerry, Ph.D., D([facility]), Blood BLOOD SPECIMEN / Unknown Lab Venipuncture / Unknown 03/04/2024 4:13 PM BASKETBALL SCOUT 03/05/2024 9:56 AM BASKETBALL SCOUT Cindy Garcia MD LAB - BLOOD BANK ORD ERABLES Performing Organization Address City/[facility]/ZIP Co de Phone Number [facility] ([facility]) [address] [place] [address] * HLA TYPING DNA HIGH RESOLUTION DR (03/04/2024 4:13 PM BASKETBALL SCOUT) Blood BLOOD SPECIMEN / Unknown Lab Venipuncture / Unknown 03/04/2024 4:13 PM BASKETBALL SCOUT 03/05/2024 9:56 AM BASKETBALL SCOUT Narrative [facility] ([facility]) - 04/29/2024 4:00 PM BASKETBALL SCOUT See Scanned Report Cindy Garcia MD LAB - BLOOD BANK ORD ERABLES Performing Organization Address [facility] Co de Phone Number [facility] ([facility]) [address] [place] [address] * HLA TYPING DNA HIGH RESOLUTION DQ (03/04/2024 4:13 PM BASKETBALL SCOUT) Blood BLOOD SPECIMEN / Unknown Lab Venipuncture / Unknown 03/04/2024 4:13 PM BASKETBALL SCOUT 03/05/2024 9:56 AM BASKETBALL SCOUT Narrative [facility] ([facility]) - 04/29/2024 4:00 PM BASKETBALL SCOUT See Scanned Report Cindy Garcia MD LAB - BLOOD BANK ORD ERABLES Performing Organization Address [facility] Co de Phone Number [facility] ([facility]) [address] [place] [address] * HLA TYPING DNA HIGH RESOLUTION B (03/04/2024 4:13 PM BASKETBALL SCOUT) Blood BLOOD SPECIMEN / Unknown Lab Venipuncture / Unknown 03/04/2024 4:13 PM BASKETBALL SCOUT 03/05/2024 9:56 AM BASKETBALL SCOUT Narrative [facility] ([facility]) - 04/29/2024 4:00 PM BASKETBALL SCOUT See Scanned Report Cindy Garcia MD LAB - BLOOD BANK ORD ERABLES [facility] ([employer]) [address] * HLA TYPING DNA HIGH RESOLUTION A (03/04/2024 4:13 PM BASKETBALL SCOUT) Blood BLOOD SPECIMEN / Unknown Lab Venipuncture / Unknown 03/04/2024 4:13 PM BASKETBALL SCOUT 03/05/2024 9:56 AM BASKETBALL SCOUT Narrative [facility] ([facility]) - 04/29/2024 4:01 PM BASKETBALL SCOUT See Scanned Report Cindy Garcia MD LAB - BLOOD BANK ORD ERABLES Performing Organization Address City/[facility]/ZIP Co de Phone Number [facility] ([facility]) [facility] * HLA TYPING DNA HIGH RESOLUTION C (03/04/2024 4:13 PM BASKETBALL SCOUT) Blood BLOOD SPECIMEN / Unknown Lab Venipuncture / Unknown 03/04/2024 4:13 PM BASKETBALL SCOUT 03/05/2024 9:56 AM BASKETBALL SCOUT Narrative [facility] ([facility]) - 04/29/2024 4:01 PM BASKETBALL SCOUT See Scanned Report Cindy Garcia MD LAB - BLOOD BANK ORD ERABLES Performing Organization Address City/[facility]/ZIP Co de Phone Number [facility] ([facility]) [address] * CHROMOSOME ANALYSIS LEUKEMIA BLD (03/04/2024 4:13 PM BASKETBALL SCOUT) [facility] Chromosome Analysis Leukemic Blood See Note Normal 03/23/2024 12:39 PM BASKETBALL SCOUT [employer] ([facility]) Comment: Test [...] FISH AML/PML and TAML MDS performed under [facility] accessions [phone] and [phone] were NORMAL. This result has been reviewed and approved by Margaret Roberson, PhD, [facility] INTERPRETIVE INFORMATION: Chromosome Analysis, Leukemic Blood This test was developed and its performance characteristics determined by [employer]. It has not been cleared or approved by the US Food and Drug Administration. This test was performed in a CLIA certified laboratory and is intended for clinical purposes. EER Chromosome Analysis Leukemic See Note 03/23/2024 12:39 PM BASKETBALL SCOUT [employer] ([facility]) Comment: Authorized individuals can access the [email or web address] Enhanced Report using the following link: [email or web address] Performed By: [employer] [facility] [address] [place] [address] Admissions Clerk: Uche Morley MD, PhD CLIA Number: [id number] Blood BLOOD SPECIMEN / Unknown Lab Venipuncture / Unknown 03/04/2024 4:13 PM BASKETBALL SCOUT 03/22/2024 5:28 PM BASKETBALL SCOUT Cindy Garcia MD LAB - PATHOLOGY/CYTO LOGY ORDERABLES [facility]) [address] [place] [address], [facility] * HIV-1 HIV-2 ANTIBODY + HIV P24 AG PANEL (New on 08/24) (03/04/2024 4:13 PM BASKETBALL SCOUT) Pathologist [facility] HIV Antigen/Antibod y 1 & 2 Non-reacti ve Non-react carlos 03/04/2024 5:12 PM BASKETBALL SCOUT [facility] Comment:No Laboratory eviden ce of HIV infection. Blood BLOOD SPECIMEN / Unknown Lab Venipuncture / Unknown 03/04/2024 4:13 PM BASKETBALL SCOUT 03/04/2024 4:23 PM BASKETBALL SCOUT Cindy Garcia MD LAB - CHEMISTRY CHELI MONREAL [facility] [address] [address], [facility] [phone] * BCR-ABL1 CML+AML PCR QUANT PNL (03/04/2024 4:13 PM BASKETBALL SCOUT) Pathologist [facility] Interpretation TNP 03/13/2024 5:08 PM BASKETBALL SCOUT [facility] ([facility]) Comment: Unable to obtain results. Repeated efforts to analyze this specimen have been unsuccessful. LOW CONTROL GENE COPY NUMBER INDICATED SPECIMEN DEGRADATION. Director Review Comment 5:08 PM BASKETBALL SCOUT [facility] ([facility]) Comment: Dawood Sarabia, PhD, [facility] Director, Molecular Oncology [facility] [place] [address] Background Comment 03/13/2024 5:08 PM BASKETBALL SCOUT [facility] ([facility]) Comment: This assay can detect [...] as indicated. Methodology Comment 03/13/2024 5:08 PM BASKETBALL SCOUT [facility] ([facility]) Comment: Total RNA is isolated [...] developed and its performance characteristics determined by [facility]. It has not been cleared or approved by the Food and Drug Administration. Blood BLOOD SPECIMEN / Unknown Lab Venipuncture / Unknown 03/04/2024 4:13 PM BASKETBALL SCOUT 03/04/2024 4:24 PM BASKETBALL SCOUT [facility]ative [facility] ([facility]) - 03/13/2024 5:08 PM BASKETBALL SCOUT Performed at: 01 - [facility] [address] [employer] [place], [place] [id number] Hollow Handle Bench Worker: Cinthya Roper [facility], Phone: [phone] Performed at: - [facility] [address] [place], [place] [id number] Hollow Handle Bench Worker: Cinthya Roper [facility], Phone: [phone] Cindy Garcia MD LAB - CHEMISTRY ORDE JOCELIN [facility] ([facility]) [address] [place] [address] * TSH REFLEX FREE T4 (03/04/2024 4:13 PM BASKETBALL SCOUT) [facility] TSH 0.961 0.350 - 4.940 uIU/mL 03/04/2024 5:29 PM BASKETBALL SCOUT [facility] Blood BLOOD SPECIMEN / Unknown Lab Venipuncture / Unknown 03/04/2024 4:13 PM BASKETBALL SCOUT 03/04/2024 4:27 PM BASKETBALL SCOUT Cindy Garcia MD LAB - CHEMISTRY ORDE RABLES Performing Organization Address City/[facility]/ZIP Co de Phone Number [address] [address], [facility] [phone] * RHEUMATOID FACTOR BLOOD QUANTITATIVE (03/04/2024 4:13 PM BASKETBALL SCOUT) [facility] Rheumatoid Factor <15 <30 IU/mL 03/04/2024 4:57 PM BASKETBALL SCOUT [facility] Rheumatoid Factor Screen Negative Negative 03/04/2024 4:57 PM BASKETBALL SCOUT [facility] Blood BLOOD SPECIMEN / Unknown Lab Venipuncture / Unknown 03/04/2024 4:13 PM BASKETBALL SCOUT 03/04/2024 4:23 PM BASKETBALL SCOUT Cindy Garcia MD LAB - CHEMISTRY CHELI MONREAL Performing Organization Address [facility]/ZIP Co de Phone Number [address] [address], [facility] [phone] * CYTOMEGALOVIRUS ANTIBODY IGG BLOOD (03/04/2024 4:13 PM BASKETBALL SCOUT) [facility] Cytomegalovirus Antibody IgG <0.20 <=0.70 U/mL 03/05/2024 9:27 PM BASKETBALL SCOUT [facility] ([facility]) Comment: INTERPRETIVE INFORMATION: Cytomegalovirus Antibody, [...] laboratory at the same time. Performed By: [facility] [address] [place] [address] Admissions Clerk: Uche Morley MD, PhD CLIA Number: [id number] Blood BLOOD SPECIMEN / Unknown Lab Venipuncture / Unknown 03/04/2024 4:13 PM BASKETBALL SCOUT 03/04/2024 4:23 PM BASKETBALL SCOUT Cindy Garcia MD LAB - CHEMISTRY CHELI MONREAL [facility]) [address] [place], [place] [address] * C-REACTIVE PROTEIN (03/04/2024 4:13 PM BASKETBALL SCOUT) Pathologist [facility] C-Reactive Protein 0.5 <=0.5 mg/dL 03/04/2024 4:56 PM BASKETBALL SCOUT [facility] Blood BLOOD SPECIMEN / Unknown Lab Venipuncture / Unknown 03/04/2024 4:13 PM BASKETBALL SCOUT 03/04/2024 4:27 PM BASKETBALL SCOUT Cindy Garcia MD LAB - CHEMISTRY CHELI MONREAL [address] [address], [facility] [phone] * MARLINE BLOOD SCREEN W/REFLEX TITER (03/04/2024 4:13 PM BASKETBALL SCOUT) MARLINE IgG None Detected None Detected 03/05/2024 11:42 PM BASKETBALL SCOUT [facility] ([facility]) Comment: If suspicion of connective tissue disease is strong and MARLINE EIA is negative, consider testing for MARLINE by IFA ([id number]). INTERPRETIVE INFORMATION: Anti-Nuclear Antibodies (MARLINE), IgG by TOÑA Antinuclear Antibodies (MARLINE), IgG by TOÑA: MARLINE specimens are screened using enzyme-linked immunosorbent assay (TOÑA) methodology. All TOÑA results reported as Detected are further tested by indirect fluorescent assay (IFA) using HEp-2 substrate with an IgG-specific conjugate. The MARLINE TOÑA screen is designed to detect antibodies against dsDNA, histones, SS-A (Ro), SS-B (La), Pimentel, Pimentel/GASATERIA ATTENDANT, Scl-70, Mey-1, centromeric proteins, other antigens extracted from the HEp-2 cell nucleus. MARLINE TOÑA assays have been reported to have lower sensitivities than MARLINE IFA for systemic autoimmune rheumatic diseases (SARD). Negative results do not necessarily rule out SARD. Performed By: [employer] [address] [place] [address] Admissions Clerk: Uche Morley MD, PhD CLIA Number: [id number] Blood BLOOD SPECIMEN / Unknown Lab Venipuncture / Unknown 03/04/2024 4:13 PM BASKETBALL SCOUT 03/04/2024 4:23 PM BASKETBALL SCOUT Cindy Garcia MD LAB - CHEMISTRY ORDE JOCELIN [facility]) [address] [place] [address] * ZINC BLOOD (03/04/2024 4:13 PM BASKETBALL SCOUT) Zinc 62.4 60.0 - 120.0 ug/dL 03/06/2024 6:35 AM BASKETBALL SCOUT [facility] ([facility]) Comment: INTERPRETIVE INFORMATION: Zinc, Serum [...] developed and its performance characteristics determined by [employer]. It has not been cleared or approved by the US Food and Drug Administration. This test was performed in a CLIA certified laboratory and is intended for clinical purposes. Performed By: [employer] [address] [place] [address] Admissions Clerk: Uche Morley MD, PhD CLIA Number: [id number] Blood BLOOD SPECIMEN / Unknown Lab Venipuncture / Unknown 03/04/2024 4:13 PM BASKETBALL SCOUT 03/04/2024 4:23 PM BASKETBALL SCOUT Cindy Garcia MD LAB - CHEMISTRY CHELI MONREAL Performing Organization Address [facility] Co de Phone Number [facility] [employer] [facility]) [address] * COPPER BLOOD (03/04/2024 4:13 PM BASKETBALL SCOUT) Copper 108.5 70.0 - 140.0 ug/dL 03/06/2024 6:35 AM BASKETBALL SCOUT [facility]) Comment: INTERPRETIVE INFORMATION: Copper, Serum [...] developed and its performance characteristics determined by [employer]. It has not been cleared or approved by the US Food and Drug Administration. This test was performed in a CLIA certified laboratory and is intended for clinical purposes. Performed By: [facility] [employer] [address] [place] [address] Admissions Clerk: Uche Morley MD, PhD CLIA Number: [id number] Blood BLOOD SPECIMEN / Unknown Lab Venipuncture / Unknown 03/04/2024 4:13 PM BASKETBALL SCOUT 03/04/2024 4:23 PM BASKETBALL SCOUT Cindy Garcia MD LAB - CHEMISTRY CHELI MONREAL [facility]) [address] * ERYTHROCYTE SEDIMENTATION RATE (03/04/2024 4:13 PM BASKETBALL SCOUT) Erythrocyte Sedimentation Rate Westergren 14 0 - 20 MM/HR 03/04/2024 5:10 PM BASKETBALL SCOUT [facility] Blood BLOOD SPECIMEN / Unknown Lab Venipuncture / Unknown 03/04/2024 4:13 PM BASKETBALL SCOUT 03/04/2024 4:27 PM BASKETBALL SCOUT Cindy Garcia MD LAB - HEMATOLOGY ELI PENNY Performing Organization Address City/[facility]/ZIP Co de Phone Number [address] [address], [place] [phone] * HEPATITIS B SURFACE ANTIBODY (03/04/2024 4:13 PM BASKETBALL SCOUT) Hepatitis B Virus Surface Antibody Non-react carlos Non-react carlos 03/04/2024 5:12 PM BASKETBALL SCOUT [facility] Comment: < 8 mIU/mL Hepatitis B surface Antibody (HBsAb). Nonreactive for HBsAb - individual is considered not immune to Hepatitis B Virus infection. Hepatitis B Surface Antibody Quantitative 0.3 <8.0 mIU/mL 03/04/2024 5:12 PM BASKETBALL SCOUT [facility] Comment: Hepatitis B Surface Antibody Numeric Result Interpretation: Nonreactive: <8.0 mIU/mL Indeterminate: 8.0 - 12.0 mIU/mL Reactive: >12.0 mIU/mL Blood BLOOD SPECIMEN / Unknown Lab Venipuncture / Unknown 03/04/2024 4:13 PM BASKETBALL SCOUT 03/04/2024 4:23 PM BASKETBALL SCOUT Cindy Garcia MD LAB - CHEMISTRY CHELI MONREAL Performing Organization Address [facility]/ZIP Co de Phone Number [address] [address], [place] [phone] * HEPATITIS B CORE ANTIBODY TOTAL (03/04/2024 4:13 PM BASKETBALL SCOUT) HBc Antibody Total Non-reacti ve Non-reacti ve 03/04/2024 5:12 PM BASKETBALL SCOUT [facility] Blood BLOOD SPECIMEN / Unknown Lab Venipuncture / Unknown 03/04/2024 4:13 PM BASKETBALL SCOUT 03/04/2024 4:23 PM BASKETBALL SCOUT Cindy Garcia MD LAB - CHEMISTRY CHELI MONREAL [address] [address], [place] [phone] * FOLATE (03/04/2024 4:13 PM BASKETBALL SCOUT) Folate 17.7 7.0 - 31.4 ng/mL 03/04/2024 5:29 PM BASKETBALL SCOUT [facility] Blood BLOOD SPECIMEN / Unknown Lab Venipuncture / Unknown 03/04/2024 4:13 PM BASKETBALL SCOUT 03/04/2024 4:27 PM BASKETBALL SCOUT Cindy Garcia MD LAB - CHEMISTRY CHELI MONREAL [address] [address], [place] [phone] * VITAMIN B12 (03/04/2024 4:13 PM BASKETBALL SCOUT) Vitamin B12 524 213 - 816 pg/mL 03/04/2024 5:29 PM [facility] Blood BLOOD SPECIMEN / Unknown Lab Venipuncture / Unknown 03/04/2024 4:13 PM BASKETBALL SCOUT 03/04/2024 4:27 PM BASKETBALL SCOUT Cindy Garcia MD LAB - CHEMISTRY CHELI MONREAL [address] [address], [place] [phone] * (ABNORMAL) IRON + TRANSFERRIN PANEL [w/Transferrin Sat % + TIBC] (03/04/2024 4:13 PM BASKETBALL SCOUT) Iron 31(L) 50 - 175 ug/dL 03/04/2024 4:53 PM [facility] Transferrin 257 174 - 382 mg/dL 03/04/2024 4:53 PM [facility] Transferrin Saturation % 10(L) 16 - 50 % 03/04/2024 4:53 PM [facility] TIBC Calculated 321 240 - 450 ug/dL 03/04/2024 4:53 PM [facility] Blood BLOOD SPECIMEN / Unknown Lab Venipuncture / Unknown 03/04/2024 4:13 PM BASKETBALL SCOUT 03/04/2024 4:23 PM BASKETBALL SCOUT Cindy Garcia MD LAB - CHEMISTRY CHELI MONREAL Performing Organization Address City/[facility]/ZIP Co de Phone Number [address] [address], [place] [phone] * HEPATITIS C ANTIBODY (03/04/2024 4:13 PM BASKETBALL SCOUT) Hepatitis C Antibody Non-react carlos Non-reac tive 03/04/2024 5:12 PM BASKETBALL SCOUT [facility] Comment:Hepatitis C Antibody screen indicates [...] Lab Venipuncture / Unknown 03/04/2024 4:13 PM BASKETBALL SCOUT 03/04/2024 4:23 PM BASKETBALL SCOUT Cindy Garcia MD LAB - CHEMISTRY CHELI MONREAL Performing Organization Address City/[facility]/ZIP Co de Phone Number [address] [address], [place] [phone] * (ABNORMAL) FERRITIN (03/04/2024 4:13 PM BASKETBALL SCOUT) [facility] Ferritin 21(L) 22 - 275 ng/mL 03/04/2024 5:12 PM BASKETBALL SCOUT [facility] Blood BLOOD SPECIMEN / Unknown Lab Venipuncture / Unknown 03/04/2024 4:13 PM BASKETBALL SCOUT 03/04/2024 4:23 PM BASKETBALL SCOUT Cindy Garcia MD LAB - CHEMISTRY CHELI MONREAL [address] [address], [place] [phone] * DERMATOPATHOLOGY (09/27/2023 12:00 AM CDT) Only the most recent of2 resultswithin the time period is included. Case Report Dermatopathology Report Case: [id number] Authorizing Provider: Timothy Banks MD Collected: 09/27/2023 12:00 AM Ordering Location: [facility] - Received: 09/28/2023 10:46 AM DermPath Lab Pathologist: Kerry Pringle MD Specimens: A) - Skin, left neck B) - Skin, left axilla 12:35 PM [facility] DERMATOPATHOLOGY LABORATORY Final Diagnosis Specimen A. SKIN, left neck: SEBORRHEIC KERATOSIS, IRRITATED AND INFLAMED (L82.0) PRESENT AT MARGIN Specimen B. SKIN, left axilla: PIGMENTED SEBORRHEIC KERATOSIS (L82.1) PRESENT AT MARGIN 12:35 PM [facility] DERMATOPATHOLOGY LABORATORY Clinical History A-B: Changing lesion 12:35 PM T DERMATOPATHOLOGY LABORATORY Gross Description Specimen A: Received is one formalin filled container labeled with the patient's name and designated left neck. The specimen consists of a shave biopsy measuring 48b89u6 mm. Jar 0. Specimen B: Received is [...] in cassette 2. Jar 0. 12:35 PM T DERMATOPATHOLOGY LABORATORY Microscopic Description [...] the margin of the specimen. 12:35 PM CDT DERMATOPATHOLOGY LABORATORY Disclaimer An external and internal positive and negative controls are appropriate for the histochemical, immunohistochemical and immunofluorescence stain(s) in this case (if any), except where stated explicitly. The performance characteristics of the stain(s) cited in this report were developed and its performance characteristic determined by the Dermatopathology Laboratory at [facility], directed by Dr. Randall Pringle. These tests need not be, and therefore are not, approved by the [place] Food and Drug Administration. The tests are used for clinical purposes. Billing Codes Specimen Charges Stain Charges 35680 35088 1 1 4 12:35 PM CDT DERMATOPATHOLOGY LABORATORY Embedded Images 4 12:35 PM CDT DERMATOPATHOLOGY LABORATORY Pathology/Cytology TISSUE SPECIMEN FROM SKIN / Unknown 09/27/2023 09/28/2023 10:46 AM CDT Miscellaneous samples (specimen) TISSUE SPECIMEN FROM SKIN / Unknown 09/27/2023 09/28/2023 10:46 AM CDT Timothy Banks MD LAB - PATHOLOGY/CYTO LOGY ORDERABLES DERMATOPATHOLOGY LABORATORY [facility] - Department of Dermatology [facility]ly [facility] Medicine [address] [place] [address], [address] [phone] Care Teams Cereal Miller Relationship Specialty Start Date End Date Timothy Banks MD [address] [place] [address] PCP - General 10/19/18 Cindy Garcia MD [address] [place] [address] Spectral Scientist/Oncologis t Hematology and Oncology 03/24/24
--- OUTSIDE RECORDS SUMMARY | 2024-06-03 16:34 | XMS_ITS ---
Author Organization [facility] Address [address] [facility] [place] [address] Care Team Providers Care Outreach Team Member Name Role Phone Timothy Banks MD Primary Care Provider [phone] Cindy Garcia MD Unavailable Active Problems Problem [...] treatments are documented for this patient in [facility]. Treatments may have been administered in another system.
--- OUTSIDE RECORDS SUMMARY | 2024-06-03 16:34 | XMS_ITS | Encounter Summary ---
Author Organization [facility] Address [address] [place] [address] Phone Care Team Providers Care Building Mechanic Name Role Phone Timothy Banks MD Primary Care Provider [phone] Encounter Details Date Type Department Care Team (Late st Contact Info) Description 08/25/2017 Orders Only [facility] ProviderDusty MD [address] [place] [address] Social History Tobacco Use Types Packs/Day Years Used Date Smoking Tobacco: Never Smokeless Tobacco: Never Alcohol Use Standard Drinks/Week Comments Yes 0 (1 standard drink = 0.6 oz pur e alcohol) Sex and Gender Information Value Date Recorded Sex Assigned at Not on file Legal Sex Male 4:19 AM MILK TESTER Gender Identity Male 01/12/2020 7:43 PM CDT [...] on filedocumented in this encounter Care Teams Building Mechanic Relationship Specialty Start Date End Date Timothy Banks MD PCP - General 07/08/16 documented as of this encounter
--- OUTSIDE RECORDS SUMMARY | 2024-06-03 16:35 | XMS_ITS | Clinical Summary ---
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
--- OUTSIDE RECORDS SUMMARY | 2024-06-03 16:35 | XMS_ITS | Encounter Summary ---
Author Organization [facility] Address [address] [facility] [place] [address] Care Team Providers Care Dispatcher Maintenance Service Name Role Phone Timothy Banks MD Primary Care Provider [phone] Cindy Garcia MD Unavailable Encounter Details Date Type Department Care Team (Late st Contact Info) Description 02/12/2024 Lab Requisition [facility] - Pathology Lab [address] [place] [address] Rommel Dinh MD [address] [facility] [address] [place] [address] Decreased white blood cell count, unspecified Social History Tobacco Use Types Packs/Day Years Used Date Smoking Tobacco: Never Assessed Sex and Gender Information Value Date Recorded Sex Assigned at Male 03/05/2024 8:04 AM BUILDING EQUIPMENT INSPECTOR Gender Identity Male 03/05/2024 8:04 AM BUILDING EQUIPMENT INSPECTOR Sexual Orientation Straight 03/05/2024 8: 04 AM BUILDING EQUIPMENT INSPECTOR documented as of this encounter Plan of Treatment Upcoming Encounters Date Type Department Care Team (Late st Contact Info) Description 06/17/2024 9:20 AM CDT Appointment [facility] [address] [place] [address] 06/17/2024 9:40 AM CDT Office Visit [facility] - Hematology/Oncology [address] [place] [phone] Stephanie Connolly APRN-CNP [address] [place] [phone] 06/18/2024 9:20 AM CDT Appointment [facility] [address] [place] [address] 06/19/2024 9:00 AM CDT Appointment [facility] [address] [place] [address] 06/20/2024 9:10 AM CDT Appointment [facility] [address] [place] [address] 06/21/2024 9:10 AM CDT Appointment [facility] [address] [place] [address] documented as of this encounter Procedures Procedure Name Priority Date/Time Associated Diagnosis Comments FLOW CYTOMETRY BONE MARROW Routine 02/12/2024 9:20 AM BUILDING EQUIPMENT INSPECTOR Decreased white blood cell count, unspecified documented in this encounter Results * FLOW CYTOMETRY BONE MARROW (02/12/2024 9:20 AM BUILDING EQUIPMENT INSPECTOR) Case Report Flow Cytometry Case: [id number] Authorizing Provider: Rommel Dinh Collected: 02/12/2024 09:20 AM MD Luke Ordering Location: [facility] - Received: 02/12/2024 12:12 PM Pathology Lab Pathologist: Daniela Bronson MD Specimen: Bone Marrow 02/12/2024 3:44 PM BUILDING EQUIPMENT INSPECTOR [facility] Final Diagnosis Bone marrow, [...] on 02/12/2024 at 1539. 02/12/2024 3:44 PM [facility] Flow Cytometry Interpretation Viability: [...] specimen has been reviewed for quality control supervisor purposes. Review the bone marrow aspirate smears reveals 20% blasts with only rare promyelocytes identified. Carolyn rods are not seen. 02/12/2024 3:44 PM [facility] Flow Cytometry Results Differential Result Comment Flow Cell Count /uL 20,700 Total Viability % 97.0 Lymphocytes % 12 Dim CD45 Region % 44 Monocytes % 1 Granulocytes % 42 02/12/2024 3:44 PM [facility] Reason for test Decreased white blood cell count, unspecified 02/12/2024 3:44 PM [facility] Client Specimen ID # [id number] 02/12/2024 3:44 PM [facility] Number of markers 29 [...] CD56 A-20 Flow CD64 A-28 cyCD22 A-29 [id number] A-16 Platinum+CD19+ A-17 Lambda+CD19+ A-24 Flow HLA-DR A-25 Flow MPO A-26 Flow TdT A-27 cyCD3 02/12/2024 3:44 PM [facility] Pathologist Location at [facility] 02/12/2024 3:44 PM [facility] Disclaimer Test performed at [facility], [address] [place], [place], [address]. *The established laboratory minimum viability is 70%. [...] high complexity clinical testing. 02/12/2024 3:44 PM [facility] Embedded Images 3:44 PM [facility] Pathology/Cytolo gy BONE MARROW SPECIMEN / Unknown 02/12/2024 9:20 AM BUILDING EQUIPMENT INSPECTOR 02/12/2024 12:12 PM BUILDING EQUIPMENT INSPECTOR Rommel Dinh MD LAB - PATHO LOGY/CYTOLOGY ORDERABLES [facility]. [address] [phone] documented in this encounter Visit Diagnoses Diagnosis Decreased white blood cell count, unspecified documented in this encounter Care Teams Dispatcher Maintenance Service Relationship Specialty Start Date End Date Timothy Banks [place] [address] [place] [address] PCP - General 10/19/18 Cindy Garcia MD [address] [place] [address] Emd Teacher/Oncologis t Hematology and Oncology 03/24/24 documented as of this encounter
--- OUTSIDE RECORDS SUMMARY | 2024-06-03 16:35 | XMS_ITS | Encounter Summary ---
Author Organization [facility] Address [address] [place] [address] Care Team Providers Care Disease Education Specialist Name Role Phone Timothy Banks MD Primary Care Provider Cindy Garcia MD Unavailable Encounter Details Date Type Department Care Team (Late st Contact Info) Description 02/13/2024 Lab Requisition [facility] - Pathology Lab [address] [place] [address] Rommel Dinh MD [address] [facility] [address] [place] [address] Illness, unspecified Social History Tobacco Use Types Packs/Day Years Used Date Smoking Tobacco: Never Assessed Sex and Gender Information Value Date Recorded Sex Assigned at Male 03/05/2024 8:04 AM DRIVER ENGINEER Gender Identity Male 03/05/2024 8:04 AM DRIVER ENGINEER Sexual Orientation Straight 03/05/2024 8: 04 AM DRIVER ENGINEER documented as of this encounter Plan of Treatment Upcoming Encounters Date Type Department Care Team (Late st Contact Info) Description 06/17/2024 9:[address] [facility] [address] [place] [address] 06/17/2024 9:40 AM CDT Office Visit [facility] - Hematology/Oncology [address] [place] [phone] Stephanie Connolly APRN-SHIPFITTER APPRENTICE [address] [place] [address] 06/18/2024 9:[address] [facility] [address] [place] [address] 06/19/2024 9:[address] [facility] [address] [place] [address] 06/20/2024 9:[address] [facility] [address] [place] [address] 06/21/2024 9:[address] [facility] [address] [place] [phone] documented as of this encounter Procedures Procedure Name Priority Date/Time Associated Diagnosis Comments BONE MARROW BIOPSY (STL) Routine 02/12/2024 9:20 AM DRIVER ENGINEER Illness, unspecified documented in this encounter Results * BONE MARROW BIOPSY (STL) (02/12/2024 9:20 AM DRIVER ENGINEER) Case Report Bone Marrow Patholog y Report Case: [id number] Authorizing Provider: Rommel Dinh Collected: 02/12/2024 09:20 AM MD Luke Ordering Location: [facility] - Received: 02/13/2024 12:34 PM Pathology Lab Pathologist: Daniela Bronson MD Specimens: A) - Bone Marrow Clot B) - Bone Marrow Core 02/14/2024 1:43 PM DRIVER ENGINEER [facility] Final Diagnosis Bone marrow, iliac crest, core biopsy, clot section, and aspirate: - Increased myeloblasts (up to 30% by morphology) with mild trilineage dyspoiesis involving a hypercellular bone marrow (70-80% cellular), see comment - Absent iron stores - 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 02/14/2024 1:43 PM [facility] Peripheral Smear Description [...] including numerous giant platelets. 02/14/2024 1:43 PM [facility] Bone Marrow Aspirate [...] stain): no ring sideroblasts. 02/14/2024 1:43 PM [facility] Bone Marrow Core [...] similar to core biopsy. 02/14/2024 1:43 PM [facility] Flow Cytometry Summary Flow cytometry identified 35% myeloblasts and no diagnostic immunophenotypic evidence of monoclonal B-cells, an aberrant T-cell population, or plasma cell neoplasm ([id number]). 02/14/2024 1:43 PM [facility] Clinical History Chronic leukopenia 02/14/2024 1:43 PM [facility] Materials Received Received are 19 slide(s) and 3 blocks labeled [id number] along with a copy of the outside pathology report. [place] [address]. All original materials are returned to the referring institution, along with a copy of our final report. 02/14/2024 1:43 PM [facility] Microscopic Description CD34 [...] sections reveal absent stores. 02/14/2024 1:43 PM [facility] Pathologist Location at [facility] 02/14/2024 1:43 PM [facility] Disclaimer The performance characteristics of all immunohistochemical and indirect immunofluorescence stains (if any) cited in this report were determined by the Histopathology Laboratory of [facility]. Some of these tests [...] the attending (teaching) pathologist. 02/14/2024 1:43 PM DRIVER ENGINEER [facility] Embedded Images 02/14/2024 1:43 PM DRIVER ENGINEER [facility] Pathology/Cytology BONE MARROW SPECIMEN / Unknown 02/12/2024 9:20 AM DRIVER ENGINEER 02/13/2024 12:34 PM DRIVER ENGINEER Miscellaneous samples (specimen) BONE MARROW SPECIMEN / Unknown 02/12/2024 9:20 AM DRIVER ENGINEER 02/13/2024 12:34 PM DRIVER ENGINEER Rommel Dinh MD LAB - PATHO LOGY/CYTOLOGY ORDERABLES Performing Organization Address City/State/[facility] de Phone Number [facility] [address] [phone] documented in this encounter Visit Diagnoses Diagnosis Illness, unspecified documented in this encounter Care Teams Disease Education Specialist Relationship Specialty Start Date End Date Timothy Banks MD [address] [place] [phone] PCP - General 10/19/18 Cindy Garcia MD [address] [place] [address] Unit Assembler/Oncologis t Hematology and Oncology 03/24/24 documented as of this encounter
--- OUTSIDE RECORDS SUMMARY | 2024-06-03 16:35 | XMS_ITS | Referral Summary ---
Author Organization [facility] Address [address] [place] [address] Care Team Providers Care General Passenger Agent Name Role Phone Timothy Banks MD Primary Care Provider [phone] Cindy Garcia MD Unavailable Source Comments [facility],non-owned Affiliates and Associated Physician Practices is amultiple site organization consisting of ambulatory clinics and hospital sitesin [place]. This disclosure is being madepursuant to the Care Everywhere program and may not contain all information available regarding this patient. Last updated 17.[facility] Encounters Date Type Department Care Team Description 05/30/2024 Travel 05/30/2024 10:20 AM SHIELD INSTALLER - 05/30/2024 11:59 PM SHIELD INSTALLER Hospital Encounter [facility] [address] [place] [address] Cindy Garcia MD Discharge Disposition: Home or Self Care 05/30/2024 11:00 AM SHIELD INSTALLER Office Visit [facility] - Hematology/Oncolog y [address] [place] [phone] Cindy Garcia MD 05/28/2024 Orders Only [facility] - Hematology/Oncolog y [address] [place] [phone] Nikole Chou RN Acute myeloid leuk w multilin dysplasia, 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) 05/22/2024 Travel 05/22/2024 8:40 AM SHIELD INSTALLER - 05/22/2024 11:59 PM SHIELD INSTALLER Hospital Encounter [facility] [address] [place] [phone] Timothy Banks MD Discharge Disposition: Home or Self Care 05/21/2024 9:00 AM SHIELD INSTALLER - 05/21/2024 11:59 PM SHIELD INSTALLER Hospital Encounter [facility] [address] [place] [phone] Timothy Banks MD Discharge Disposition: Home or Self Care 05/20/2024 Travel 05/20/2024 9:30 AM SHIELD INSTALLER - 05/20/2024 11:59 PM SHIELD INSTALLER Hospital Encounter [facility] [address] [place] [phone] Cindy Garcia MD Discharge Disposition: Home or Self Care 05/17/2024 8:58 AM SHIELD INSTALLER - 05/17/2024 11:59 PM SHIELD INSTALLER Hospital Encounter [facility] [address] [place] [phone] Cindy Garcia MD Discharge Disposition: Home or Self Care 05/16/2024 Telephone [facility] - Hematology/Oncolog y [address] [place] [phone] Stephanie Connolly APRN-CNP Follow-up (Error/) 05/16/2024 Travel 05/16/2024 9:40 AM SHIELD INSTALLER Office Visit [facility] - Hematology/Oncolog y [address] [place] [phone] Stephanie Connolly APRN-CNP Acute myeloid leuk w multilin dysplasia, 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); Chronic kidney disease, unspecified CKD stage; Neutropenia, unspecified type (HCC) 05/16/2024 8:49 AM SHIELD INSTALLER - 05/16/2024 11:59 PM SHIELD INSTALLER Hospital Encounter [facility] [address] [place] [phone] Cindy Garcia MD Discharge Disposition: Home or Self Care 05/15/2024 Travel 05/15/2024 12:32 PM SHIELD INSTALLER - 05/15/2024 11:59 PM SHIELD INSTALLER Hospital Encounter [facility] [address] [place] [address] Cindy Garcia MD Kunkle, Kelly, AUTOMOTIVE ENGINEERING TEACHER-PHOTOGRAPHIC ARTIST Discharge Disposition: Home or Self Care 05/13/2024 Refill [facility] - Hematology/Oncolog y [address] [place] [address] Cindy Garcia MD MEDICATION REFILL 05/02/2024 1:30 PM SHIELD INSTALLER Video Visit [facility] - Hematology/Oncolog y [address] [place] [address] Cindy Gracia MD 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) 05/01/2024 Orders Only [facility] - Hematology/Oncolog y [address] [place] [address] Cindy Garcia MD 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) 04/22/2024 Travel 04/22/2024 12:45 PM SHIELD INSTALLER - 04/22/2024 11:59 PM SHIELD INSTALLER Hospital Encounter [facility] [address] [place] [address] Cindy Garcia MD Discharge Disposition: Home or Self Care 04/22/2024 Refill [facility] - Hematology/Oncolog y [address] [place] [address] Cindy Garcia MD Refill Request 04/22/2024 Orders Only [facility] - Hematology/Oncolog y [address] [place] [address] Tg Amezcua, RN 04/22/2024 Orders Only [facility] - Hematology/Oncolog y [address] [place] [address] Tg Amezcua, RN 04/22/2024 Telephone [facility] - Hematology/Oncolog y [address] [place] [address] Nikole Chou, RN Appointment 04/22/2024 9:38 AM SHIELD INSTALLER - 04/22/2024 12:44 PM SHIELD INSTALLER Hospital Encounter [facility] [address] [place] [phone] Unknown, Provider Discharge Disposition: Home or Self Care 04/19/2024 Travel 04/19/2024 9:58 AM SHIELD INSTALLER - 04/19/2024 11:59 PM SHIELD INSTALLER Hospital Encounter [facility] [address] [place] [phone] Unknown, Provider Discharge Disposition: Home or Self Care 04/18/2024 Travel 04/18/2024 10:30 AM SHIELD INSTALLER Office Visit [facility] - Hematology/Oncolog y [address] [place] [phone] Cindy Garcia MD 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) 04/18/2024 9:32 AM SHIELD INSTALLER - 04/18/2024 11:59 PM SHIELD INSTALLER Hospital Encounter [facility] [address] [place] [phone] Unknown, Provider Discharge Disposition: Home or Self Care 04/17/2024 10:32 AM SHIELD INSTALLER - 04/17/2024 11:59 PM SHIELD INSTALLER Hospital Encounter [facility] [address] [place] [phone] Timothy Banks MD Discharge Disposition: Home or Self Care 04/16/2024 10:00 AM SHIELD INSTALLER - 04/16/2024 11:59 PM SHIELD INSTALLER Hospital Encounter [facility] [address] [place] [phone] Unknown, Provider Discharge Disposition: Home or Self Care 04/15/2024 Orders Only [facility] [address] [place] [phone] Cindy Garcia MD 04/11/2024 5:49 AM SHIELD INSTALLER - 04/11/2024 11:05 AM SHIELD INSTALLER Hospital Encounter [facility] [address] [place] [address] Cindy Garcia MD Interven Radiology Discharge Disposition: Home or Self Care 04/10/2024 Orders Only [facility] [address] [place] [phone] Cindy Garcia MD Chronic kidney disease, unspecified CKD stage 04/05/2024 Orders Only [facility] [address] [place] [phone] Cindy Garcia MD 04/04/2024 Telephone [facility] - Hematology/Oncolog y [address] [place] [phone] Cindy Garcia MD Medication Prior Auth Request 04/01/2024 Orders Only [facility] [address] [place] [phone] Cindy Garcia MD Tumor lysis syndrome (HCC) 04/01/2024 Travel 04/01/2024 3:09 PM SHIELD INSTALLER - 04/01/2024 11:59 PM SHIELD INSTALLER Hospital Encounter [facility] [address] [place] [address], [address] [place] [address] Discharge Disposition: Home or Self Care 04/01/2024 Orders Only [facility] [address] [place] [phone] Cindy Garcia MD Acute myeloid leukemia 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) 04/01/2024 2:00 PM SHIELD INSTALLER Office Visit [facility] - Hematology/Oncolog y [address] [place] [phone] Cindy Garcia MD 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) 03/25/2024 Orders Only [facility] [address] [place] [phone] Ekta Ferro, AUTOMOTIVE ENGINEERING TEACHER-PHOTOGRAPHIC ARTIST 03/25/2024 Orders Only [facility] - Hematology/Oncolog y [address] [place] [phone] Cindy Garcia MD Acute myeloid leuk w multilin dysplasia, 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) 03/25/2024 Telephone Transitional Care at [facility] [address] [place] [phone] Adamaris Jesus, collector of port 03/13/2024 7:14 PM SHIELD INSTALLER - 03/23/2024 1:56 PM SHIELD INSTALLER Hospital Encounter [facility] [address] [place] [address] Cindy Garcia MD Kumar, Ashwath, MD Schrader, Kevin Michael, MD Masud, Josh Chavez MD Internal Medicine Discharge Disposition: Home or Self Care 03/14/2024 Pharmacist Telephone[facility]Document [facility] [address] [place] [phone] Cindy Garcia MD Medication Monitoring (VENCLEXTA 100 MG TABLET/) 03/14/2024 Telephone [facility] - Hematology/Oncolog y [address] [place] [phone] Cindy Garcia MD Medication Prior Auth Request 03/14/2024 Telephone [facility] Physician [facility] - Hematology/Oncolog y [address] [place] [phone] Cindy Garcia MD Medication Prior Auth Request 03/14/2024 Telephone [facility] Physician [facility] - Hematology/Oncolog y [address] [place] [phone] Cindy Garcia MD Medication Prior Auth Request 03/13/2024 Travel 03/13/2024 Telephone [facility] [address] [place] [phone] Cindy Garcia MD Medication Prior Auth Request 03/13/2024 Orders Only [facility] [address] [place] [address] Sammie Hartman, PharmD 03/13/2024 Orders Only [facility] [address] [place] [phone] Cindy Garcia MD 03/04/2024 Travel 03/04/2024 3:35 PM SHIELD INSTALLER - 03/04/2024 11:59 PM SHIELD INSTALLER Hospital Encounter [facility] [address] [place] [address], [address] [place] [address] Discharge Disposition: Home or Self Care 03/04/2024 Orders Only [facility] [address] [place] [phone] Cindy Garcia MD MDS (myelodysplastic syndrome) (HCC) 03/04/2024 2:00 PM SHIELD INSTALLER Office Visit [facility] - Hematology/Oncolog y [address] [place] [address] Cindy Garcia MD MDS (myelodysplastic syndrome) (HCC) (Primary Dx) from Last 3 Months Allergies Active Allergy [...] and heating? Not hard at all 03/13/2024 [facility] [place] [facility] - Occupational Stress [...] any time in the past 12 m [facility], were you homeless or living in a custodial (including now)? No 03/13/2024 Sex and Gender Information Value Date Recorded Sex Assigned at Male 03/05/2024 8:04 AM SHIELD INSTALLER Gender Identity Male 03/05/2024 8:04 AM SHIELD INSTALLER Sexual Orientation Straight 03/05/2024 8: 04 AM SHIELD INSTALLER Last Filed Vital Signs Vital Sign Reading Time Taken Comments Blood Pressure 129/87 05/30/2024 11:20 AM SHIELD INSTALLER Pulse 80 05/30/2024 11:20 AM SHIELD INSTALLER Temperature 36.4 C (97.6 F) 05/30/2024 11:20 AM SHIELD INSTALLER Respiratory Rate 18 05/30/2024 11:2 0 AM SHIELD INSTALLER Oxygen Saturation 100% 05/30/2024 11: 20 AM SHIELD INSTALLER Inhaled Oxygen Concentration - - Weight 94.3 kg (207 lb 12.8 oz) 025 11:20 AM SHIELD INSTALLER Height 182.9 cm (6') 05/15/2024 12:50 PM SHIELD INSTALLER Body Mass Index 28.18 05/15/2024 12:50 PM SHIELD INSTALLER Functional Status Functional Status Response Date of [...] Info) Description 06/17/2024 9:20 AM CDT Appointment [facility] [address] [place] [phone] 06/17/2024 9:40 AM CDT Office Visit [facility] - Hematology/Oncology [address] [place] [phone] Stephanie Connolly APRN-FAISAL [address] [place] [phone] 06/18/2024 9:20 AM CDT Appointment [facility] [address] [place] [phone] 06/19/2024 9:00 AM CDT Appointment [facility] [address] [place] [phone] 06/20/2024 9:10 AM CDT Appointment [facility] [address] [place] [phone] 06/21/2024 9:10 AM CDT Appointment [facility] [address] [place] [phone] Medical Devices Implanted Type Area Tire Worker Device Identifier Shelf Expiration Date Model / Serial / Lot Port Implinfn Powerport Clrvu Argd Kandy Implanted:Qty : 1 on 04/11/2024 by Davian Marshall MD at [facility] Catheters Right: Chest Wall [employer] [id number] 02/07/2025 [id number] / / [id number] Procedures Procedure Name Priority Date/Time Associated Diagnosis Comments COMPREHENSIVE METABOLIC PANEL Routine 05/30/2024 11:05 AM SHIELD INSTALLER Acute myeloid leuk w multilin dysplasia, 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) CBC W AUTO DIFFERENTIAL Routine 05/30/19 11:05 AM SHIELD INSTALLER Acute myeloid leuk w multilin dysplasia, 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) DIFFERENTIAL MANUAL Routine 05/20/2024 9 :42 AM SHIELD INSTALLER Acute myeloid leuk w multilin dysplasia, 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) COMPREHENSIVE METABOLIC PANEL Routine 05/20/2024 9:42 AM SHIELD INSTALLER Acute myeloid leuk w multilin dysplasia, 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) CBC W AUTO DIFFERENTIAL Routine 05/20/19 9:42 AM SHIELD INSTALLER Acute myeloid leuk w multilin dysplasia, 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) DIFFERENTIAL MANUAL Routine 05/16/2024 9 :03 AM SHIELD INSTALLER Acute myeloid leuk w multilin dysplasia, 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) COMPREHENSIVE METABOLIC PANEL Routine 05/16/2024 9:03 AM SHIELD INSTALLER Acute myeloid leuk w multilin dysplasia, 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) CBC W AUTO DIFFERENTIAL Routine 05/16/19 9:03 AM SHIELD INSTALLER Acute myeloid leuk w multilin dysplasia, 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) CHROMOSOME ANALYSIS BONE MARROW PANEL Routine 05/15/2024 1:35 PM SHIELD INSTALLER Acute myeloid leuk w multilin dysplasia, 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) MDS (myelodysplastic syndrome) (HCC) FLOW CYTOMETRY BONE MARROW Routine 05/15/2024 1:35 PM SHIELD INSTALLER Acute myeloid leuk w multilin dysplasia, 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) MDS (myelodysplastic syndrome) (HCC) BONE MARROW BIOPSY (STL) Routine 05/15/2024 1:35 PM SHIELD INSTALLER Acute myeloid leuk w multilin dysplasia, 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) MDS (myelodysplastic syndrome) (HCC) LAB MISC TEST (NOT BLOOD) Routine 05/15/2024 1:35 PM SHIELD INSTALLER Acute myeloid leuk w multilin dysplasia, 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) MDS (myelodysplastic syndrome) (HCC) LAB MISC TEST (NOT BLOOD) Routine 05/15/2024 1:35 PM SHIELD INSTALLER Acute myeloid leuk w multilin dysplasia, 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) MDS (myelodysplastic syndrome) (HCC) DIFFERENTIAL MANUAL Routine 05/15/2024 1 :01 PM SHIELD INSTALLER Acute myeloid leuk w multilin dysplasia, 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) MDS (myelodysplastic syndrome) (HCC) CBC W AUTO DIFFERENTIAL Routine 05/15/19 25 1:01 PM SHIELD INSTALLER Acute myeloid leuk w multilin dysplasia, 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) MDS (myelodysplastic syndrome) (HCC) EKG 12-LEAD Routine 04/22/2024 1:27 PM SHIELD INSTALLER Acute myeloid leukemia 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) DIFFERENTIAL MANUAL Routine 04/22/2024 1 0:11 AM SHIELD INSTALLER Acute myeloid leuk w multilin dysplasia, 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) COMPREHENSIVE METABOLIC PANEL Routine 04/22/2024 10:11 AM SHIELD INSTALLER Acute myeloid leuk w multilin dysplasia, 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) CBC W AUTO DIFFERENTIAL Routine 04/22/19 25 10:11 AM SHIELD INSTALLER Acute myeloid leuk w multilin dysplasia, 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) COMPREHENSIVE METABOLIC PANEL Routine 04/18/2024 9:48 AM SHIELD INSTALLER Acute myeloid leuk w multilin dysplasia, 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) CBC W AUTO DIFFERENTIAL Routine 04/18/19 25 9:48 AM SHIELD INSTALLER Acute myeloid leuk w multilin dysplasia, 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) QUANTIFERON-TB GOLD PLUS 4-TUBE Routine 04/16/2024 1:43 PM SHIELD INSTALLER LDH BLOOD Routine 04/16/2024 10:26 AM SHIELD INSTALLER Tumor lysis syndrome (HCC) COMPREHENSIVE METABOLIC PANEL Routine 04/16/2024 10:26 AM SHIELD INSTALLER Acute myeloid leuk w multilin dysplasia, 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) CBC W AUTO DIFFERENTIAL Routine 04/16/19 25 10:26 AM SHIELD INSTALLER Acute myeloid leuk w multilin dysplasia, 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) COMPREHENSIVE METABOLIC PANEL Routine 04/11/2024 10:54 AM SHIELD INSTALLER Acute myeloid leuk w multilin dysplasia, 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) CBC W AUTO DIFFERENTIAL Routine 04/11/19 25 10:54 AM SHIELD INSTALLER Acute myeloid leuk w multilin dysplasia, 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) IR TIM CATH INSERT Routine 04/11/2024 9:45 AM SHIELD INSTALLER Acute myeloid leukemia 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) PT-INR [facility] STAT 04/11/2024 7:20 AM SHIELD INSTALLER Acute myeloid leukemia 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) MDS (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, 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) PHOSPHORUS BLOOD Routine 04/01/2024 3:12 PM SHIELD INSTALLER Tumor lysis syndrome (HCC) URIC ACID BLOOD Routine 04/01/2024 3:12 PM SHIELD INSTALLER Tumor lysis syndrome (HCC) DIFFERENTIAL MANUAL Routine 04/01/2024 3 :12 PM SHIELD INSTALLER Acute myeloid leukemia 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) MAGNESIUM BLOOD Routine 04/01/2024 3:12 PM SHIELD INSTALLER Acute myeloid leukemia 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) ERYTHROPOIETIN Routine 04/01/2024 3:12 PM SHIELD INSTALLER Acute myeloid leukemia 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) SOLUBLE TRANSFERRIN RECEPTOR Routine 04/01/2024 3:12 PM SHIELD INSTALLER Acute myeloid leukemia 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) COMPREHENSIVE METABOLIC PANEL Routine 04/01/2024 3:12 PM SHIELD INSTALLER Acute myeloid leukemia 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) CBC W AUTO DIFFERENTIAL Routine 04/01/20 3:12 PM SHIELD INSTALLER Acute myeloid leukemia 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) LAB RESULTS ORDER 03/25/2024 DIFFERENTIAL MANUAL AM Draw 03/23/2024 1 2:25 AM SHIELD INSTALLER MAGNESIUM BLOOD Routine 03/23/2024 12:25 AM SHIELD INSTALLER URIC ACID BLOOD Routine 03/23/2024 12:25 AM SHIELD INSTALLER PHOSPHORUS BLOOD Routine 03/23/2024 12:2 5 AM SHIELD INSTALLER COMPREHENSIVE METABOLIC PANEL Routine 03/23/2024 12:25 AM SHIELD INSTALLER LDH BLOOD Routine 03/23/2024 12:25 AM SHIELD INSTALLER PTT [facility] AM Draw 03/23/2024 12:25 AM SHIELD INSTALLER PT-INR [facility] AM Draw 03/23/2024 12:25 AM SHIELD INSTALLER CBC W AUTO DIFFERENTIAL AM Draw 03/23/20 24 12:25 AM SHIELD INSTALLER MAGNESIUM BLOOD Routine 03/22/2024 6:20 PM SHIELD INSTALLER URIC ACID BLOOD Routine 03/22/2024 6:20 PM SHIELD INSTALLER PHOSPHORUS BLOOD Routine 03/22/2024 6:20 PM SHIELD INSTALLER COMPREHENSIVE METABOLIC PANEL Routine 03/22/2024 6:20 PM SHIELD INSTALLER LDH BLOOD Routine 03/22/2024 6:20 PM SHIELD INSTALLER DIFFERENTIAL MANUAL AM Draw 03/22/2024 6 :58 AM SHIELD INSTALLER MAGNESIUM BLOOD Routine 03/22/2024 6:58 AM SHIELD INSTALLER URIC ACID BLOOD Routine 03/22/2024 6:58 AM SHIELD INSTALLER PHOSPHORUS BLOOD Routine 03/22/2024 6:58 AM SHIELD INSTALLER COMPREHENSIVE METABOLIC PANEL Routine 03/22/2024 6:58 AM SHIELD INSTALLER LDH BLOOD Routine 03/22/2024 6:58 AM SHIELD INSTALLER PTT [facility] AM Draw 03/22/2024 6:58 AM SHIELD INSTALLER PT-INR [facility] AM Draw 03/22/2024 6:58 AM SHIELD INSTALLER CBC W AUTO DIFFERENTIAL AM Draw 03/22/20 24 6:58 AM SHIELD INSTALLER MAGNESIUM BLOOD Routine 03/21/2024 3:47 AM SHIELD INSTALLER URIC ACID BLOOD Routine 03/21/2024 3:47 AM SHIELD INSTALLER PHOSPHORUS BLOOD Routine 03/21/2024 3:47 AM SHIELD INSTALLER COMPREHENSIVE METABOLIC PANEL Routine 03/21/2024 3:47 AM SHIELD INSTALLER LDH BLOOD Routine 03/21/2024 3:47 AM SHIELD INSTALLER PTT [facility] AM Draw 03/21/2024 3:47 AM SHIELD INSTALLER PT-INR [facility] AM Draw 03/21/2024 3:47 AM SHIELD INSTALLER CBC W AUTO DIFFERENTIAL AM Draw 03/21/20 3:47 AM SHIELD INSTALLER MAGNESIUM BLOOD Routine 03/20/2024 4:07 PM SHIELD INSTALLER URIC ACID BLOOD Routine 03/20/2024 4:07 PM SHIELD INSTALLER PHOSPHORUS BLOOD Routine 03/20/2024 4:07 PM SHIELD INSTALLER COMPREHENSIVE METABOLIC PANEL Routine 03/20/2024 4:07 PM SHIELD INSTALLER LDH BLOOD Routine 03/20/2024 4:07 PM SHIELD INSTALLER DIFFERENTIAL MANUAL AM Draw 03/20/2024 6 :28 AM SHIELD INSTALLER LDH BLOOD Routine 03/20/2024 6:28 AM SHIELD INSTALLER PTT [facility] AM Draw 03/20/2024 6:28 AM SHIELD INSTALLER PT-INR [facility] AM Draw 03/20/2024 6:28 AM SHIELD INSTALLER URIC ACID BLOOD Routine 03/20/2024 6:28 AM SHIELD INSTALLER PHOSPHORUS BLOOD Routine 03/20/2024 6:28 AM SHIELD INSTALLER MAGNESIUM BLOOD Routine 03/20/2024 6:28 AM SHIELD INSTALLER COMPREHENSIVE METABOLIC PANEL AM Draw 03/20/2024 6:28 AM SHIELD INSTALLER CBC W AUTO DIFFERENTIAL AM Draw 03/20/20 6:28 AM SHIELD INSTALLER DIFFERENTIAL MANUAL AM Draw 03/19/2024 6 :23 AM SHIELD INSTALLER LDH BLOOD Routine 03/19/2024 6:23 AM SHIELD INSTALLER PTT [facility] AM Draw 03/19/2024 6:23 AM SHIELD INSTALLER PT-INR [facility] AM Draw 03/19/2024 6:23 AM SHIELD INSTALLER URIC ACID BLOOD Routine 03/19/2024 6:23 AM SHIELD INSTALLER PHOSPHORUS BLOOD Routine 03/19/2024 6:23 AM SHIELD INSTALLER MAGNESIUM BLOOD Routine 03/19/2024 6:23 AM SHIELD INSTALLER COMPREHENSIVE METABOLIC PANEL AM Draw 03/19/2024 6:23 AM SHIELD INSTALLER CBC W AUTO DIFFERENTIAL AM Draw 03/19/20 6:23 AM SHIELD INSTALLER EKG 12-LEAD Routine 03/18/2024 1:48 PM SHIELD INSTALLER Inverted T wave PATHOLOGY PERIPHERAL SMEAR REVIEW AM Draw 03/18/2024 8:33 AM SHIELD INSTALLER DIFFERENTIAL MANUAL AM Draw 03/18/2024 8 :33 AM SHIELD INSTALLER LDH BLOOD Routine 03/18/2024 8:33 AM SHIELD INSTALLER PTT [facility] AM Draw 03/18/2024 8:33 AM SHIELD INSTALLER PT-INR [facility] AM Draw 03/18/2024 8:33 AM SHIELD INSTALLER URIC ACID BLOOD Routine 03/18/2024 8:33 AM SHIELD INSTALLER PHOSPHORUS BLOOD Routine 03/18/2024 8:33 AM SHIELD INSTALLER MAGNESIUM BLOOD Routine 03/18/2024 8:33 AM SHIELD INSTALLER COMPREHENSIVE METABOLIC PANEL AM Draw 03/18/2024 8:33 AM SHIELD INSTALLER CBC W AUTO DIFFERENTIAL AM Draw 03/18/20 24 8:33 AM SHIELD INSTALLER DIFFERENTIAL MANUAL AM Draw 03/17/2024 5 :28 AM SHIELD INSTALLER LDH BLOOD Routine 03/17/2024 5:28 AM SHIELD INSTALLER PTT [facility] AM Draw 03/17/2024 5:28 AM SHIELD INSTALLER PT-INR [facility] AM Draw 03/17/2024 5:28 AM SHIELD INSTALLER URIC ACID BLOOD Routine 03/17/2024 5:28 AM SHIELD INSTALLER PHOSPHORUS BLOOD Routine 03/17/2024 5:28 AM SHIELD INSTALLER MAGNESIUM BLOOD Routine 03/17/2024 5:28 AM SHIELD INSTALLER COMPREHENSIVE METABOLIC PANEL AM Draw 03/17/2024 5:28 AM SHIELD INSTALLER CBC W AUTO DIFFERENTIAL AM Draw 03/17/20 5:28 AM SHIELD INSTALLER DIFFERENTIAL MANUAL AM Draw 03/16/2024 1 2:04 AM SHIELD INSTALLER LDH BLOOD Routine 03/16/2024 12:04 AM SHIELD INSTALLER PTT [facility] AM Draw 03/16/2024 12:04 AM SHIELD INSTALLER PT-INR [facility] AM Draw 03/16/2024 12:04 AM SHIELD INSTALLER URIC ACID BLOOD Routine 03/16/2024 12:04 AM SHIELD INSTALLER PHOSPHORUS BLOOD Routine 03/16/2024 12:0 4 AM SHIELD INSTALLER MAGNESIUM BLOOD Routine 03/16/2024 12:04 AM SHIELD INSTALLER COMPREHENSIVE METABOLIC PANEL AM Draw 03/16/2024 12:04 AM SHIELD INSTALLER CBC W AUTO DIFFERENTIAL AM Draw 03/16/20 12:04 AM SHIELD INSTALLER ECHO COMPLETE W CONTRAST Routine 03/15/2024 1:47 PM SHIELD INSTALLER MDS (myelodysplastic syndrome) (HCC) MYELOID MALIGNANCIES MUTATION PNL Routine 03/15/2024 9:05 AM SHIELD INSTALLER MDS (myelodysplastic syndrome) (HCC) FISH MDS PANEL BLOOD OR BONE MARROW Routine 03/15/2024 9:05 AM SHIELD INSTALLER MDS (myelodysplastic syndrome) (HCC) FISH AML PANEL BLOOD OR BM RFLX PML/DANTE Routine 03/15/2024 9:05 AM SHIELD INSTALLER MDS (myelodysplastic syndrome) (HCC) FLOW CYTOMETRY BONE MARROW Routine 03/15/2024 9:05 AM SHIELD INSTALLER MDS (myelodysplastic syndrome) (HCC) BONE MARROW BIOPSY (STL) Routine 03/15/2024 9:05 AM SHIELD INSTALLER MDS (myelodysplastic syndrome) (HCC) FISH PML/DANTE PANEL Routine 03/15/2024 9 :05 AM SHIELD INSTALLER MDS (myelodysplastic syndrome) (HCC) CHROMOSOME ANALYSIS BONE MARROW PANEL Routine 03/15/2024 9:05 AM SHIELD INSTALLER MDS (myelodysplastic syndrome) (HCC) LAB MISC TEST (NOT BLOOD) Routine 03/15/2024 9:05 AM SHIELD INSTALLER LAB MISC TEST (NOT BLOOD) Routine 03/15/2024 9:05 AM SHIELD INSTALLER LAB MISC TEST (NOT BLOOD) Routine 03/15/2024 9:05 AM SHIELD INSTALLER DIFFERENTIAL MANUAL AM Draw 03/15/2024 7 :53 AM SHIELD INSTALLER LDH BLOOD Routine 03/15/2024 7:53 AM SHIELD INSTALLER PTT SLH AM Draw 03/15/2024 7:53 AM SHIELD INSTALLER PT-INR [facility]H AM Draw 03/15/2024 7:53 AM SHIELD INSTALLER URIC ACID BLOOD Routine 03/15/2024 7:53 AM SHIELD INSTALLER PHOSPHORUS BLOOD Routine 03/15/2024 7:53 AM SHIELD INSTALLER MAGNESIUM BLOOD Routine 03/15/2024 7:53 AM SHIELD INSTALLER COMPREHENSIVE METABOLIC PANEL AM Draw 03/15/2024 7:53 AM SHIELD INSTALLER CBC W AUTO DIFFERENTIAL AM Draw 03/15/20 7:53 AM SHIELD INSTALLER EKG 12-LEAD STAT 03/14/2024 12:30 PM SHIELD INSTALLER MDS (myelodysplastic syndrome) (HCC) FLOW CYTOMETRY BLOOD PROFILE Routine 03/14/2024 10:32 AM SHIELD INSTALLER MDS (myelodysplastic syndrome) (HCC) DIFFERENTIAL MANUAL STAT 03/13/2024 1 1:26 PM SHIELD INSTALLER LDH BLOOD Routine 03/13/2024 11:26 PM SHIELD INSTALLER PTT SLH Routine 03/13/2024 11:26 PM SHIELD INSTALLER PT-INR SLH Routine 03/13/2024 11:26 PM SHIELD INSTALLER FIBRINOGEN ACTIVITY Routine 03/13/2024 1 1:26 PM SHIELD INSTALLER D-DIMER Routine 03/13/2024 11:26 PM SHIELD INSTALLER URIC ACID BLOOD Routine 03/13/2024 11:26 PM SHIELD INSTALLER PHOSPHORUS BLOOD Routine 03/13/2024 11:2 6 PM SHIELD INSTALLER MAGNESIUM BLOOD Routine 03/13/2024 11:26 PM SHIELD INSTALLER COMPREHENSIVE METABOLIC PANEL STAT 03/13/2024 11:26 PM SHIELD INSTALLER CBC W AUTO DIFFERENTIAL STAT 03/13/20 11:26 PM SHIELD INSTALLER QUINN-RICHMOND VIRUS QUANT BLOOD STL Routine 03/13/2024 11:26 PM SHIELD INSTALLER CYTOMEGALOVIRUS (CMV) QUANTITATIVE PLASMA Routine 03/13/2024 11:26 PM SHIELD INSTALLER CHROMOSOME ANALYSIS LEUKEMIA BLD Routine 03/04/2024 4:13 PM SHIELD INSTALLER MDS (myelodysplastic syndrome) (HCC) FISH PML/DANTE PANEL Routine 03/04/2024 4 :13 PM SHIELD INSTALLER MDS (myelodysplastic syndrome) (HCC) FISH AML PANEL BLOOD OR BM RFLX PML/DANTE Routine 03/04/2024 4:13 PM SHIELD INSTALLER MDS (myelodysplastic syndrome) (HCC) FISH AML+MDS PANEL BLOOD OR BONE MARROW Routine 03/04/2024 4:13 PM SHIELD INSTALLER MDS (myelodysplastic syndrome) (HCC) MYELOID MALIGNANCIES MUTATION PNL STAT 03/04/2024 4:13 PM SHIELD INSTALLER MDS (myelodysplastic syndrome) (HCC) HLA TYPING LOW/HIGH RESOLUTION DPB1 Routine 03/04/2024 4:13 PM SHIELD INSTALLER MDS (myelodysplastic syndrome) (HCC) HLA TYPING DNA HIGH RESOLUTION DR Routine 03/04/2024 4:13 PM SHIELD INSTALLER MDS (myelodysplastic syndrome) (HCC) HLA TYPING DNA HIGH RESOLUTION B Routine 03/04/2024 4:13 PM SHIELD INSTALLER MDS (myelodysplastic syndrome) (HCC) HLA TYPING DNA HIGH RESOLUTION C Routine 03/04/2024 4:13 PM SHIELD INSTALLER MDS (myelodysplastic syndrome) (HCC) HLA TYPING DNA HIGH RESOLUTION DQ Routine 03/04/2024 4:13 PM SHIELD INSTALLER MDS (myelodysplastic syndrome) (HCC) HLA TYPING DNA HIGH RESOLUTION A Routine 03/04/2024 4:13 PM SHIELD INSTALLER MDS (myelodysplastic syndrome) (HCC) HLA TYPING DNA LOW RESOLUTION DR,DQ Routine 03/04/2024 4:13 PM SHIELD INSTALLER MDS (myelodysplastic syndrome) (HCC) HLA TYPING DNA LOW RESOLUTION A,B,C Routine 03/04/2024 4:13 PM SHIELD INSTALLER MDS (myelodysplastic syndrome) (HCC) HLA TYPING DNA HIGH RES Routine 03/04/20 4:13 PM SHIELD INSTALLER MDS (myelodysplastic syndrome) (HCC) DIFFERENTIAL MANUAL Routine 03/04/2024 4 :13 PM SHIELD INSTALLER Neutropenia, unspecified type (HCC) BCR-ABL1 CML+AML PCR QUANT PNL Routine 03/04/2024 4:13 PM SHIELD INSTALLER MDS (myelodysplastic syndrome) (HCC) CYTOMEGALOVIRUS ANTIBODY IGG BLOOD Routine 03/04/2024 4:13 PM SHIELD INSTALLER MDS (myelodysplastic syndrome) (HCC) HEPATITIS C ANTIBODY Routine 03/04/2024 4:13 PM SHIELD INSTALLER Neutropenia, unspecified type (HCC) HEPATITIS B SURFACE ANTIBODY Routine 03/04/2024 4:13 PM SHIELD INSTALLER Neutropenia, unspecified type (HCC) HIV-1 HIV-2 ANTIBODY + HIV P24 AG PANEL Routine 03/04/2024 4:13 PM SHIELD INSTALLER Neutropenia, unspecified type (HCC) ERYTHROCYTE SEDIMENTATION RATE Routine 03/04/2024 4:13 PM SHIELD INSTALLER Neutropenia, unspecified type (HCC) C-REACTIVE PROTEIN Routine 03/04/2024 4: 13 PM SHIELD INSTALLER Neutropenia, unspecified type (HCC) RHEUMATOID FACTOR BLOOD QUANTITATIVE Routine 03/04/2024 4:13 PM SHIELD INSTALLER Neutropenia, unspecified type (HCC) MARLINE BLOOD SCREEN W/REFLEX TITER Routine 03/04/2024 4:13 PM SHIELD INSTALLER Neutropenia, unspecified type (HCC) FERRITIN Routine 03/04/2024 4:13 PM SHIELD INSTALLER Neutropenia, unspecified type (HCC) IRON + TRANSFERRIN PANEL Routine 03/04/2024 4:13 PM SHIELD INSTALLER Neutropenia, unspecified type (HCC) TSH REFLEX FREE T4 Routine 03/04/2024 4: 13 PM SHIELD INSTALLER Neutropenia, unspecified type (HCC) ZINC BLOOD Routine 03/04/2024 4:13 PM SHIELD INSTALLER Neutropenia, unspecified type (HCC) COPPER BLOOD Routine 03/04/2024 4:13 PM SHIELD INSTALLER Neutropenia, unspecified type (HCC) FOLATE Routine 03/04/2024 4:13 PM SHIELD INSTALLER Neutropenia, unspecified type (HCC) VITAMIN B12 Routine 03/04/2024 4:13 PM SHIELD INSTALLER Neutropenia, unspecified type (HCC) COMPREHENSIVE METABOLIC PANEL Routine 03/04/2024 4:13 PM SHIELD INSTALLER Neutropenia, unspecified type (HCC) CBC W AUTO DIFFERENTIAL Routine 03/04/20 4:13 PM SHIELD INSTALLER Neutropenia, unspecified type (HCC) HEPATITIS B CORE ANTIBODY TOTAL Routine 03/04/2024 4:13 PM SHIELD INSTALLER Neutropenia, unspecified type (HCC) from Last 3 Months Results * (ABNORMAL) CBC W/ DIFFERENTIAL (05/30/2024 11:05 AM SHIELD INSTALLER) Only the most recent of20 resultswithin the time period is included. WBC 3.1(L) 4.0 - 10.7 x10E9/L 05/30/2024 12:31 PM [facility] RBC Count 3.95(L) 4.30 - 5.80 x10E12/L 05/30/2024 12:31 PM [facility] Hemoglobin 11.5(L) 13.3 - 17.5 g/dL 05/30/2024 12:31 PM [facility] Hematocrit 34.5(L) 38.7 - 51.1 % 05/30/2024 12:31 PM [facility] MCV 87.3 80.0 - 98.0 fL 05/30/2024 12:31 PM [facility] MCH 29.1 26.7 - 33.6 pg 05/30/2024 12:31 PM [facility] MCHC 33.3 31.7 - 36.3 g/dL 05/30/2024 12:31 PM [facility] RDW-CV 18.9(H) 11.3 - 14.8 % 05/30/2024 12:31 PM [facility] Platelet Count 05/30/2024 12:31 PM [facility] Comment:Platelets clumped on slide but appears adequate. Recommend repeat with a sodium citrate blue top tube. Preliminary Absolute Neutrophil 2.01 1.60 - 7.50 x10E9/L 05/30/2024 12:31 PM [facility] Comment:Preliminary ANC pend ing manual confirmation Neutrophil % 65.1 41.0 - 74.0 % 05/30/2024 12:31 PM [facility] Lymphocyte % 15.2(L) 17.0 - 47.0 % 05/30/2024 12:31 PM [facility] Monocyte % 18.1(H) 3.0 - 11.0 % 05/30/2024 12:31 PM [facility] Eosinophil % 0.0 0.0 - 7.0 % 05/30/2024 12:31 PM [facility] Basophil % 0.0 0.0 - 1.6 % 05/30/2024 12:31 PM [facility] Immature Granulocytes % 1.6(H) 0.0 - 1.0 % 05/30/2024 12:31 PM [facility] Neutrophil Absolute 2.01 1.60 - 7.50 x10E9/L 05/30/2024 12:31 PM [facility] Lymphocyte Absolute 0.47(L) 1.00 - 4.40 x10E9/L 05/30/2024 12:31 PM [facility] Monocyte Absolute 0.56 0.15 - 1.00 x10E9/L 05/30/2024 12:31 PM [facility] Eosinophil Absolute 0.00 0.00 - 0.60 x10E9/L 05/30/2024 12:31 PM [facility] Basophil Absolute 0.00 0.00 - 0.13 x10E9/L 05/30/2024 12:31 PM [facility] Blood BLOOD SPECIMEN / Unknown Venipuncture / Unknown 05/30/2024 11:05 AM SHIELD INSTALLER 05/30/2024 11:25 AM [facility] Cindy Garcia MD LAB - HEMATOLOGY ORD ERABLES [facility] [address] [place] [address], [facility] [phone] * (ABNORMAL) COMPREHENSIVE METABOLIC PANEL (05/30/2024 11:05 AM [facility]) Only the most recent of21 resultswithin the time period is included. BUN 15 7 - 26 mg/dL 05/30/2024 12:26 PM [facility] Creatinine 1.15 0.71 - 1.16 mg/dL 05/30/2024 12:26 PM [facility] Sodium 140 136 - 145 mmol/L 05/30/2024 12:26 PM [facility] Potassium 3.7 3.5 - 4.5 mmol/L 05/30/2024 12:26 PM [facility] Chloride 108(H) 98 - 107 mmol/L 05/30/2024 12:26 PM [facility] CO2 20(L) 22 - 29 mmol/L 05/30/2024 12:26 PM [facility] Glucose 97 70 - 99 mg/dL 05/30/2024 12:26 PM [facility] Calcium 9.3 8.4 - 10.2 mg/dL 05/30/2024 12:26 PM [facility] Protein Total 6.4 6.0 - 8.3 g/dL 05/30/2024 12:26 PM [facility] Albumin 4.0 3.4 - 5.0 g/dL 05/30/2024 12:26 PM [facility] Bilirubin Total 0.9 0.2 - 1.2 mg/dL 05/30/2024 12:26 PM [facility] Alkaline Phosphatase 128 40 - 150 U/L 05/30/2024 12:26 PM [facility] ALT 11 5 - 55 U/L 05/30/2024 12:26 PM [facility] AST 13 5 - 34 U/L 05/30/2024 12:26 PM [facility] Anion Gap 12 6 - 16 05/30/2024 12:26 PM [facility] BUN/Creatinine Ratio 13 7 - 23 05/30/2024 12:26 PM [facility] Osmolality Calculated 291 275 - 295 mOsm/kg 05/30/2024 12:26 PM [facility] Albumin/Globulin Ratio 1.7 1.1 - 2.3 05/30/2024 12:26 PM [facility] eGFR by CKD-EPI 65(L) >=90 mL/min/1.7 3 m2 05/30/2024 12:26 PM [facility] Blood BLOOD SPECIMEN / Unknown Venipuncture / Unknown 05/30/2024 11:05 AM SHIELD INSTALLER 05/30/2024 11:43 AM [facility] Cindy Garcia MD LAB - CHEMISTRY CHELI MONREAL [facility] Organization Address City/State/ZIP Co de Phone Number [facility] [address] [place] [address], [facility] [phone] * (ABNORMAL) DIFFERENTIAL MANUAL (05/20/2024 9:42 AM SHIELD INSTALLER) Only the most recent of15 resultswithin the time period is included. Neutrophil % 8(L) 41 - 74 % 05/20/2024 12:18 PM [facility] Lymphocyte % 39 17 - 47 % 05/20/2024 12:18 PM [facility] Monocyte % 51(H) 3 - 11 % 05/20/2024 12:18 PM [facility] Eosinophil % 2 0 - 7 % 05/20/2024 12:18 PM [facility] Neutrophil Absolute 0.07(L) 1.60 - 7.50 x10E9/L 05/20/2024 12:18 PM [facility] Lymphocyte Absolute 0.35(L) 1.00 - 4.40 x10E9/L 05/20/2024 12:18 PM [facility] Monocyte Absolute 0.46 0.15 - 1.00 x10E9/L 05/20/2024 12:18 PM [facility] Eosinophil Absolute 0.02 0.00 - 0.60 x10E9/L 05/20/2024 12:18 PM [facility] RBC Morphology REVIEWED 05/20/2024 12:18 PM [facility] Microcytosis MODERATE(A) (none) 05/20/2024 12:18 PM [facility] Schistocytes MODERATE(A) (none) 05/20/2024 12:18 PM [facility] Large Platelets PRESENT(A) (none) 12:18 PM [facility] Blood BLOOD SPECIMEN / Unknown Venipuncture / Unknown 05/20/2024 9:42 AM SHIELD INSTALLER 05/20/2024 10:14 AM SHIELD INSTALLER Cindy Garcia MD LAB - HEMATOLOGY ORD ERABLES [facility] [address] [place] [address], [facility] [phone] * FLOW CYTOMETRY BONE MARROW (05/15/2024 1:35 PM SHIELD INSTALLER) Only the most recent of2 resultswithin the time period is included. Case Report Flow Cytometry Case: [id number] Authorizing Provider: Chapis Prabhakar APRN-CNP Collected: 05/15/2024 01:35 PM Ordering Location: [facility] Received: 05/15/2024 03:04 PM Pathologist: Guillermo Brown MD Specimen: Bone Marrow 05/22/2024 8:46 AM [facility] Addendum 1 This addendum is issued to report the results of minimal residual disease (MRD) flow cytometric analysis performed by the [facility], [address] [place] [address], [place] [address]. B one marrow aspirate - No abnormal [...] part represent peripheral blood. 05/22/2024 8:46 AM [facility] Addendum electronically signed by Angeles Rosado MD on 05/22/2024 at 8:46 AM Final Diagnosis Bone marrow, flow cytometry: - No significant B-cell, increased blast, or immature monocyte population detected 05/22/2024 8:46 AM [facility] Flow Cytometry Interpretation Viability: 75% B-cells: no significant population T-cells: not increased Blasts: not increased, ~1.5% represent CD34+ myeloblasts, ~23% of overall events are mature CD14+/CD64+ monocytes with no immunophenotypic aberrancies. MRD sent: Yes A bone marrow aspirate smear prepared from the flow cytometry specimen has been reviewed for quality management nurse purposes. 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 A-2 Flow CD10 A-3 Flow CD13 A-5 Flow CD20 A-11 Flow CD2 A-13 Flow CD14 A-16 Flow CD117 A-17 Flow CD11b A-18 Flow CD11c A-1 Flow CD5 A-4 Flow CD19 A-6 Flow CD33 A-7 Flow CD34 A-8 Flow CD45 A-12 Flow CD7 A-14 Flow CD56 A-15 Flow CD64 A-9 Dukedom+CD19+ A-10 Lambda+CD19+ A-19 Flow HLA-DR 05/22/2024 8:46 AM [facility] Pathologist Location at [facility] 05/22/2024 8:46 AM [facility] Disclaimer Test performed at [facility], [address] [place] [address], [address]. *The established laboratory minimum viability is 70%. [...] high complexity clinical testing. 05/22/2024 8:46 AM [facility] Embedded Images 8:46 AM [facility] Pathology/Cytolo gy BONE MARROW SPECIMEN / Unknown Collection / Unknown 05/15/2024 1:35 PM SHIELD INSTALLER 05/15/2024 3:04 PM SHIELD INSTALLER Chapis Prabhakar AUTOMOTIVE ENGINEERING TEACHER-PHOTOGRAPHIC ARTIST LAB - PATHOLOGY/CY TOLOGY ORDERABLES [facility] [address] [place] [address]. [place] [address], [facility] [phone] * BONE MARROW BIOPSY (STL) (05/15/2024 1:35 PM SHIELD INSTALLER) Only the most recent of2 resultswithin the time period is included. Case Report Bone Marrow Patholog y Report Case: [id number] Authorizing Provider: Chapis Prabhakar APRN-PHOTOGRAPHIC ARTIST Collected: 05/15/2024 01:35 PM Ordering Location: [facility] Received: 05/15/2024 03:04 PM Pathologist: Guillermo Brown MD Specimens: A) - Bone Marrow Clot B) - Bone Marrow Core C) - Bone Marrow Aspirate D) - Blood Peripheral 05/16/2024 3:02 PM [facility] Final Diagnosis Bone marrow, aspirate, clot section, and core biopsy: - Normocellular marrow with marked erythroid hyperplasia, myeloid hypoplasia and monocytic hyperplasia. - No overt acute leukemia seen. - See description. Peripheral blood smear: - Bicytopenia. - See description. 05/16/2024 3:02 PM [facility] Comment The significance of the monocytosis is unclear. By flow cytometry, these appear mature. These likely represent reactive cells. Minimal residual disease flow cytometry is pending. Immunohistochemistry is performed to assess staining cells in an architectural context: CD34 is negative for increased blasts (<2% of marrow cellularity), CD117 highlights early erythroid precursor cells. 05/16/2024 3:02 PM [facility] Peripheral Smear Description RBC: normocytic anemia. WBC: leukopenia with absolute neutropenia and lymphopenia. Platelets: normal in number. 05/16/2024 3:02 PM [facility] Bone [...] stain): no ring sideroblasts. 05/16/2024 3:02 PM [facility] Bone [...] similar to core biopsy. 05/16/2024 3:02 PM [facility] Flow Cytometry Summary Bone marrow, flow cytometry ([id number]): - No significant B-cell, increased blast, or immature monocyte population detected 05/16/2024 3:02 PM [facility] Clinical History AML. 05/16/2024 3:02 PM [facility] Gross Description The [...] in cassette B1. /VIVIAN 05/16/2024 3:02 PM [facility] Pathologist Location at [facility] 05/16/2024 3:02 PM [facility] Disclaimer The performance characteristics of all immunohistochemical and indirect immunofluorescence stains (if any) cited in this report were determined by the Histopathology Laboratory of [facility]. Some of these tests were [...] the attending (teaching) pathologist. 05/16/2024 3:02 PM [facility] Embedded Images 05/16/2024 3:02 PM [facility] Pathology/Cytology PERIPHERAL BLOOD / Unknown Collection / Unknown 05/15/2024 1:35 PM SHIELD INSTALLER 05/15/2024 3:04 PM SHIELD INSTALLER Miscellaneous samples (specimen) BONE MARROW SPECIMEN / Unknown 05/15/2024 1:35 PM SHIELD INSTALLER 05/15/2024 3:04 PM SHIELD INSTALLER Miscellaneous samples (specimen) SPECIMEN FROM BONE MARROW OBTAINED BY ASPIRATION / Unknown 05/15/2024 1:35 PM SHIELD INSTALLER 05/15/2024 3:04 PM SHIELD INSTALLER Miscellaneous samples (specimen) PERIPHERAL BLOOD / Unknown 05/15/2024 1:35 PM SHIELD INSTALLER 05/15/2024 3:49 PM SHIELD INSTALLER Chapis Prabhakar [facility] LAB - PATHOLOGY/CY TOLOGY ORDERABLES Performing Organization Address [facility] Co de Phone Number [facility] [address] [facility] [place] [address], [facility] [phone] * LAB MISC TEST (NOT BLOOD) (05/15/2024 1:35 PM SHIELD INSTALLER) Only the most recent of4 resultswithin the time period is included. Test Name Tempus xT + xR 05/22/2024 4:32 PM SHIELD INSTALLER [facility] NON INTERF Test Result See Scanned Report 05/22/2024 4:32 PM SHIELD INSTALLER [facility] NON INTERF Comment Ref Lab Tempus 05/22/2024 4:32 PM SHIELD INSTALLER [facility] NON INTERF Other BONE MARROW SPECIMEN / Unknown Collection / Unknown 05/15/2024 1:35 PM SHIELD INSTALLER 05/15/2024 4:01 PM SHIELD INSTALLER [facility] - BODY FLUID O RDERABLES Performing Organization Address [facility] Co de Phone Number [facility] NON INTERF [address] [place] [address], [facility] [phone] * CHROMOSOME ANALYSIS BONE MARROW PANEL (05/15/2024 1:35 PM SHIELD INSTALLER) Only the most recent of2 resultswithin the time period is included. Chromosome Analysis Bone Marrow See Note Normal 05/22/2024 1:12 PM SHIELD INSTALLER [facility] ([facility]) Comment: Test Performed: Chromosome Analysis Specimen [...] reviewed and approved by Oliver Muhammad, PhD, [facility] This result has been reviewed and approved by Emily Street MD A portion of this analysis was performed at the following location(s): [facility] CG-KS#2 [facility] CG-IN#1 INTERPRETIVE INFORMATION: Chromosome Analysis, Bone Marrow This test was developed and its performance characteristics determined by [facility]. It has not been cleared or approved by the [place] Food and Drug Administration. This test was performed in a CLIA certified laboratory and is intended for clinical purposes. EER Chromosome Analysis Bone Marrow See Note 05/22/2024 1:12 PM SHIELD INSTALLER [facility] ([facility]) Comment: Authorized individuals can access the [facility] Enhanced Report with an [facility] Connect account using the following link. Your local lab can assist you in obtaining the patient report if you don't have a Connect account. [email or web address] Performed By: [facility] [address] [place] [address] Manager Program: Uche Morley MD, PhD CLIA Number: [id number] Bone marrow BONE MARROW SPECIMEN / Unknown 05/15/2024 1:35 PM SHIELD INSTALLER 05/15/2024 3:04 PM SHIELD INSTALLER Chapis Prabhakar AUTOMOTIVE ENGINEERING TEACHER-PHOTOGRAPHIC ARTIST LAB - PATHOLOGY/CY TOLOGY ORDERABLES Performing Organization Address [facility]/ZIP Co de Phone Number [facility] ([facility]) [address] [place], [place] [address] * EKG 12-LEAD - HOSPITAL PERFORMED (04/22/2024 1:27 PM SHIELD INSTALLER) Only the most recent of3 resultswithin the time period is included. Pathologist [facility] Ventricular Rate 61 BPM [facility] Atrial Rate 61 BPM [facility] P-R Interval 112 ms [facility] QRS Duration ms 126 ms [facility] Q-T Interval ms 476 ms [facility] QTC Calculation (Bezet) 479 ms [facility] Calculated P Kountze 84 degrees [facility] Calculated R Kountze 36 degrees [facility] Calculated T Kountze -163 degrees [facility] Interpretation EKG NORMAL SINUS RHYTHM NON-SPECIFIC INTRA-VENTRICULA R CONDUCTION BLOCK T WAVE ABNORMALITY, CONSIDER INFERIOR ISCHEMIA T WAVE ABNORMALITY, CONSIDER ANTEROLATERAL ISCHEMIA ABNORMAL ECG WHEN COMPARED WITH ECG OF 18-MAR-2024 13:48, NO SIGNIFICANT CHANGE WAS FOUND Confirmed by HANSEL VASQUES MD ([id number]) on 04/23/2024 8:31:57 AM [facility] 04/22/2024 1:27 PM SHIELD INSTALLER 04/23/2024 8:31 AM SHIELD INSTALLER Cindy Garcia MD ECG ORDERABLES Performing Organization Address [facility]/ZIP Co de Phone Number [facility] * QUANTIFERON-TB GOLD PLUS 4-TUBE (04/16/2024 1:43 PM SHIELD INSTALLER) Pathologist [facility] QuantiFERON Mitogen Minus NIL 9.09 IU/mL 04/18/2024 11:11 PM SHIELD INSTALLER [facility] ([facility]) QuantiFERON Nil Value 0.04 IU/mL 04/18/2024 11:11 PM SHIELD INSTALLER [facility] ([facility]) QuantiFERON Plus TB1 Minus NIL 0.00 <=0.34 IU/mL 04/18/2024 11:11 PM SHIELD INSTALLER [facility]) QuantiFERON Plus TB2 Minus NIL 0.00 <=0.34 IU/mL 04/18/2024 11:11 PM SHIELD INSTALLER [facility] ([facility]) QuantiFERON-TB Gold Plus Negative Negative 04/18/2024 11:11 PM SHIELD INSTALLER [facility]) Comment: INTERPRETIVE INFORMATION:Quantiferon TB Gold Plus [...] Mycobacterium tuberculosis Infection -- [place], 2010 (http://www.cdc.gov/mmwr/preview/mmwrhtml/cj6034a6.htm), for more information concerning test performance in low-prevalence populations and use in occupational screening. Performed By: [facility] [address] [place] [id number] Manager Program: Uche Morley MD, PhD CLIA Number: [id number] Blood BLOOD SPECIMEN / Unknown Venipuncture / Unknown 04/16/2024 1:43 PM SHIELD INSTALLER 04/16/2024 2:03 PM SHIELD INSTALLER Cindy Garcia MD LAB - CHEMISTRY [facility]) [address] [place] [address], [facility] * LDH BLOOD (04/16/2024 10:26 AM SHIELD INSTALLER) Only the most recent of13 resultswithin the time period is included. LDH Total 197 125 - 243 Units/L 04/16/2024 11:14 AM SHIELD INSTALLER [facility] Blood BLOOD SPECIMEN / Unknown Venipuncture / Unknown 04/16/2024 10:26 AM SHIELD INSTALLER 04/16/2024 10:48 AM SHIELD INSTALLER Cindy Garcia MD LAB - CHEMISTRY CHELI MONREAL [address] [id number], [facility] [phone] * IR Tim Cath Insert (04/11/2024 9:45 AM SHIELD INSTALLER) Anatomical Region Laterality Modality Chest X-Ray Angiograph y 04/11/2024 9:19 AM SHIELD INSTALLER Impressions 04/11/2024 3:43 PM SHIELD INSTALLER Impression: Successful placement of a single lumen 8 [place] x 23 cm chest power port via [...] evaluation, please review the evaluation forms in [facility]. For details on monitored clinical parameters during the intra-service sedation time, please review the procedure nurse documentation in [facility]. Report dictated by Eduardo Coleman MD, PhD (radiology services manager). > Dictated by Eduardo Coleman MD (Inspector Tool) 04/11/2024 9:19 AM IDavian DO have personally reviewed and interpreted this examination/study. > Interpreting Provider: Davian Marshall DO on 04/11/2024 3:43 PM Narrative 04/11/2024 3:43 PM SHIELD INSTALLER PROCEDURE: IR TIM CATH INSERT, DATE/TIME OF EXAM: 04/11/2024 5:49 AM, LOCATION 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 3.Fluoroscopy-guided placement of single lumen 8 Mosotho x 23 cm chest power port via [...] draped in the usual sterile manner. A labview programmer film of chest was obtained, which was [...] DATE/TIME OF EXAM: 04/11/2024 5:49 AM, LOCATION 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 3.Fluoroscopy-guided placement of single lumen 8 Mosotho x 23 cm chestpower port via the [...] and draped inthe usual sterile manner. A labview programmer film of chest was obtained, which was [...] the procedure well and [facility]. There were no immediate complicationsassociated with the procedure. Impression: Successful placement of a single lumen 8 Mosotho x 23 cmchest power port via the [...] intravenously in my presence, and monitored by [facility] as an independent trained [...] evaluation, please review the evaluation forms in [facility]. For details on monitored clinical parameters during the intra-service sedation time, please review the procedure nurse documentation in [facility]. Report dictated by Eduardo Coleman MD, PhD (radiology services manager). > Dictated by Eduardo Coleman MD (Inspector Tool) 04/11/2024 9:19AM IDavian DO have personally reviewed and interpreted this examination/study. > Interpreting Provider: Davian Marshall DO on 04/11/2024 3:43 PM Cindy Garcia MD IR ORDERABLES * PT-INR [facility] (04/11/2024 7:20 AM SHIELD INSTALLER) Only the most recent of11 resultswithin the time period is included. PT 14.6 12.1 - 14.8 Seconds 04/11/2024 7:56 AM SHIELD INSTALLER [facility] INR 1.2 See Comment 04/11/2024 7:56 AM SHIELD INSTALLER [facility] Comment:The suggested therap eutic range for standard coumadin (warfarin) therapy is an INR of 2.0-3.0. For high-risk patients (Mechanical Mitral Valve Prosthesis, etc.), the suggested prophylactic therapeutic range is an INR of 2.5-3.5. Blood BLOOD SPECIMEN / Unknown Venipuncture / Unknown 04/11/2024 7:20 AM SHIELD INSTALLER 04/11/2024 7:23 AM SHIELD INSTALLER Cindy Garcia MD LAB - COAGULATION OR DERABLES [address] [address], [facility] [phone] * URIC ACID BLOOD (04/01/2024 3:12 PM SHIELD INSTALLER) Only the most recent of13 resultswithin the time period is included. Uric Acid 4.0 3.5 - 7.2 mg/dL 04/01/2024 5:52 PM SHIELD INSTALLER [facility] Blood BLOOD SPECIMEN / Unknown Lab Venipuncture / Unknown 04/01/2024 3:12 PM SHIELD INSTALLER 04/01/2024 5:30 PM SHIELD INSTALLER Cindy Garcia MD LAB - CHEMISTRY CHELI MONREAL [facility] [address] [place] [address], [facility] [phone] * ERYTHROPOIETIN (04/01/2024 3:12 PM SHIELD INSTALLER) Erythropoietin 22 4 - 27 mU/mL 04/02/2024 11:36 AM SHIELD INSTALLER [facility] ([facility]) Comment: INTERPRETIVE INFORMATION: Erythropoietin Normal serum [...] may benefit from therapy with recombinant EPO ([facility] [id number],1989). Performed By: [facility] [address] [place] [id number] Manager Program: Uche Morley MD, PhD CLIA Number: [id number] Blood BLOOD SPECIMEN / Unknown Lab Venipuncture / Unknown 04/01/2024 3:12 PM SHIELD INSTALLER 04/01/2024 3:22 PM SHIELD INSTALLER Cindy Garcia MD LAB - CHEMISTRY CHELI MONREAL [facility] Organization Address City/State/ZIP Co de Phone Number [facility]) [address] * SOLUBLE TRANSFERRIN RECEPTOR (04/01/2024 3:12 PM SHIELD INSTALLER) [facility] Soluble Transferrin Receptor 3.3 2.2 - 5.0 mg/L 04/02/2024 9:13 PM SHIELD INSTALLER [facility] ([facility]) Comment: INTERPRETIVE INFORMATION: Soluble Transferrin Receptor [...] Fe Status High Normal High Performed By: [facility] [address] [place] [address] Manager Program: Uche Morley MD, PhD CLIA Number: [id number] Blood BLOOD SPECIMEN / Unknown Lab Venipuncture / Unknown 04/01/2024 3:12 PM SHIELD INSTALLER 04/01/2024 3:22 PM SHIELD INSTALLER Cindy Garcia MD LAB - CHEMISTRY CHELI MONREAL [facility] ([facility]) [address] [place] [address], [facility] * PHOSPHORUS BLOOD (04/01/2024 3:12 PM SHIELD INSTALLER) Only the most recent of13 resultswithin the time period is included. Phosphorus 2.9 2.8 - 5.1 mg/dL 04/01/2024 5:52 PM SHIELD INSTALLER [facility] Blood BLOOD SPECIMEN / Unknown Lab Venipuncture / Unknown 04/01/2024 3:12 PM SHIELD INSTALLER 04/01/2024 5:30 PM SHIELD INSTALLER Cindy Garcia MD LAB - CHEMISTRY CHELI MONREAL Performing Organization Address [facility]/ZIP Co de Phone Number [address] [address], [facility] [phone] * MAGNESIUM BLOOD (04/01/2024 3:12 PM SHIELD INSTALLER) Only the most recent of13 resultswithin the time period is included. Magnesium 2.1 1.6 - 2.6 mg/dL 04/01/2024 4:25 PM SHIELD INSTALLER [facility] Comment:Hemolysis detected i n this specimen. Hemolysis is known to cause elevations in this analyte. Caution should be exercised in the interpretation of this result. Recommend repeat testing if clinically indicated. Blood BLOOD SPECIMEN / Unknown Lab Venipuncture / Unknown 04/01/2024 3:12 PM SHIELD INSTALLER 04/01/2024 3:36 PM SHIELD INSTALLER Cindy Garcia MD LAB - CHEMISTRY CHELI MONREAL Performing Organization Address City/[facility]/ZIP Co de Phone Number [address] [address], [facility] [phone] * LAB RESULTS ORDER (03/25/2024) 03/25/2024 Narrative 03/25/2024 Ordered by an unspecified provider. Scanned Document LAB - THERAPEUTIC DR WOODARD MONITORING ORDERABLES * PTT [facility] (03/23/2024 12:25 AM SHIELD INSTALLER) Only the most recent of10 resultswithin the time period is included. APTT 35.4 23.0 - 38.4 Seconds 03/23/2024 1:31 AM SHIELD INSTALLER [facility] Comment:Suggested therapeuti c range for full dose I.V. unfractionated heparin therapy for venous thromboembolism is 71 to 109 seconds. Blood BLOOD SPECIMEN / Unknown Venipuncture / Unknown 03/23/2024 12:25 AM SHIELD INSTALLER 03/23/2024 1:05 AM SHIELD INSTALLER Ghanshyam Dewey PA-C LAB - COAGULATION OR DERABLES Performing Organization Address City/[facility]/ZIP Co de Phone Number [address] [address], [facility] [phone] * PATHOLOGY PERIPHERAL SMEAR REVIEW (03/18/2024 8:33 AM SHIELD INSTALLER) Path Review Confirmed 03/18/2024 2:44 PM SHIELD INSTALLER [facility] Blood BLOOD SPECIMEN / Unknown Lab Venipuncture / Unknown 03/18/2024 8:33 AM SHIELD INSTALLER 03/18/2024 8:46 AM SHIELD INSTALLER Narrative [facility] - 03/18/2024 2:44 PM SHIELD INSTALLER A rare blast seen. Ghanshyam Dewey PA-C LAB - PATHOLOGY/CYTO LOGY ORDERABLES Performing Organization Address City/[facility]/ZIP Co de Phone Number [address] [address], [place] [phone] * ECHO COMPLETE W CONTRAST (03/15/2024 1:47 PM SHIELD INSTALLER) IVSd 2D 1.314 cm SSM CV FUJ I PACS LVIDd 5.186 cm SSM CV FUJ I PACS LVIDs 3.212 cm SSM CV FUJ I PACS LVOT diam 2.086 cm SSM CV FUJ I PACS LVPWd 1.34 cm SSM CV FUJ I PACS LV biplane EF 72.906 % SSM CV FUJI PACS LV A2C EF 72.639 % SSM CV [facility] I PACS LV A4C EF 72.078 % SSM CV [facility] I PACS LV EDV A2C 124.945 ml SSM CV FU JI PACS LV EDV A4C 128.559 ml SSM CV FU JI PACS LV ESV A2C 34.187 ml SSM CV FU JI PACS LV ESV A4C 35.897 ml SSM CV FU JI PACS LVOT pk lawanda 132.418 cm/s SSM CV F U PACS LVOT VTI 32.536 cm SSM CV [facility] I PACS RVIDd 3.985 cm SSM CV [facility] I PACS RVOT pk lawanda 69.928 cm/s SSM CV F U PACS RVOT VTI 14.149 cm SSM CV [facility] I PACS LA size 3.887 cm SSM CV [facility] I PACS LA vol BP 103.263 ml SSM CV [facility] I PACS RA area 17.733 cm [facility] AV pk lawanda regurg 205.453 cm/s SSM CV [facility] PACS AR VTI 104.216 cm SSM CV [facility] I PACS AV mn grad 5.22 mmHg SSM CV FU PACS AV pk lawanda 141.499 cm/s SSM CV [facility] I PACS AV VTI 30.145 cm SSM CV [facility] I PACS MV A pk lawanda 84.582 cm/s SSM CV F U PACS MV E pk lawanda 99.639 cm/s SSM CV F U PACS MV E' lateral lawanda 5.461 cm/s SSM CV [facility] PACS MV mn grad 1.183 mmHg SSM CV FU PACS MV VTI 30.572 cm SSM CV [facility] I PACS PV pk lawanda 84.446 cm/s SSM CV [facility] I PACS PV VTI 18.271 cm SSM CV [facility] I PACS TAPSE 1.78 cm SSM CV [facility] I PACS TR pk lawanda 276.773 cm/s SSM CV [facility] I PACS Ascending aorta 3.799 cm S[facility] LA vol index 0.046 l/m [facility] Myocardial strain charge 2 unitless SSM CV [facility] Sinus of Valsalva 3.4 cm SSM CV FUJI PACS ST junction 3.4 cm SSM CV F UJI PACS Anatomical Region Laterality Modality Ultrasound 03/15/2024 2:04 PM SHIELD INSTALLER Narrative 03/15/2024 5:17 PM SHIELD INSTALLER Summary * The left ventricle is normal [...] 2:04 PM Patient Status: I/P Study Site[facility] Quality: Adequate Exam Type: [...] Attending Physician: Ted Soler Fellow: Josh Knight Interactive Graphic Designer: Dhruv Sorto Left Ventricle Left ventricular systolic [...] 2:04 PM Patient Status: I/P Study Site: [facility] Primary Location: [facility] EStudy Info Technical Quality: Adequate Exam [...] Attending Physician: Ted Soler Fellow: Josh Knight Interactive Graphic Designer: Dhruv Sorto Left Ventricle Left ventricular systolic [...] BLOOD OR BONE MARROW (03/15/2024 9:05 AM SHIELD INSTALLER) Pathologist [facility] MDS Panel by Fish See Note Normal 024 11:26 AM SHIELD INSTALLER [facility] ([facility]) Comment: Test Performed: Myelodysplastic Syndrome (MDS) Panel by FISH (FISH MDS P) Specimen Type: Bone Marrow Indication for Testing: Myelodysplastic syndrome, unspecified RESULT Normal FISH Result Deletion 5q: not detected Monosomy 7: not detected Deletion 7q: not detected Trisomy 8: not detected Deletion 20q: not detected INTERPRETATION There was no evidence of deletion 5q31, monosomy 7, deletion 7q31, trisomy 8, or deletion 11f17-h72.1. This analysis was performed with the MDS panel probes D5S23/EGR1, D7Z1/T9K916, CEP8 ([employer]), and Del(20q) ([employer]toCell). A total of 200 cells were scored for each probe. Cytogenomic Nomenclature (ISCN): nuc nereyda(D5S23,EGR1,D7Z1,D4O224,D8Z2,D96Q360,MYBL2)x2[200' This result has been reviewed and approved by Nabila Gonzalez, PhD, [facility] A portion of this analysis was performed at the following location(s): [facility] Site CG-WA#2 INTERPRETIVE INFORMATION: MDS Panel by FISH This test was developed and its performance characteristics determined by [facility]. It has not been cleared or approved by the US Food and Drug Administration. This test was performed in a CLIA certified laboratory and is intended for clinical purposes. EER MDS Fish Panel See Note 2023 11:26 AM SHIELD INSTALLER [facility] ([facility]) Comment: Authorized individuals can access the [employer] Enhanced Report using the following link: [email or web address] Performed By: [facility] [address] [place] [address] Manager Program: Uche Morley MD, PhD CLIA Number: [id number] Other BONE MARROW SPECIMEN / Unknown Collection / Unknown 03/15/2024 9:05 AM SHIELD INSTALLER 03/15/2024 9:30 AM SHIELD INSTALLER Rodo Perez MD LAB - PATHOLOG Y/CYTOLOGY ORDERABLES [facility]) [address] [place] [address], [facility] * FISH AML PANEL BLOOD OR BM RFLX PML/DANTE (03/15/2024 9:05 AM SHIELD INSTALLER) Only the most recent of2 resultswithin the time period is included. [facility] FISH AML Panel See Note Normal 03/25/2024 10:34 AM [facility] ([facility]) Comment: Test Performed: Acute Myeloid Leukemia Panel by FISH (FISHAML) Specimen Type: Bone Marrow Indication for Testing: Myelodysplastic syndrome, unspecified RESULT Normal FISH Result inv(3) or t(3;3) GATA2::MECOM Fusion: not detected Deletion 5q: not detected Monosomy 7: not detected Deletion 7q: not detected t(8;21) RUNX1::LFHZ3L4 Fusion: not detected 11p15 (NUP98) Rearrangement: not detected 11q23 (KMT2A) Rearrangement: not detected inv(16) or t(16;16) CBFB::MYH11 Fusion: not detected INTERPRETATION There was no evidence of GATA2::MECOM (also known as RPN1-EVI1) fusion due to 3q21/3q26.2 inversion or translocation, deletion 5q31, monosomy 7, deletion 7q31, RUNX1::ALRR5T7 fusion due to translocation (8;21)(q21.3;q22), 11p15 (NUP98) rearrangement, 11q23 KMT2A (MLL) rearrangement, or CBFB::MYH11 fusion due to either 16p13.1/16q22 inversion or translocation. This analysis was performed with the AML panel probes RPN1/MECOM, D5S23/EGR1, D7Z1/L7Q692, RUNX1/ALRA4Y1 ([employer]), NUP98 and CBFB-MYH11 ([employer]), and MLL (KMT2A) ([employer]). A total of 200 cells were scored for each probe. Cytogenomic Nomenclature (ISCN): nuc nereyda(RPN1,MECOM,D5S23,EGR1,D7Z1,Y0U306,XMYI8V4,NUP98,KMT2A,MYH11,CBF B,RUNX1)x2[200' This result has been reviewed and approved by Mundo Mejia, PhD, [facility] [place] A portion of this analysis was performed at the following location(s): [facility] Site CG-CO#1 INTERPRETIVE INFORMATION: AML Panel by FISH This test was developed and its performance characteristics determined by [facility]. It has not been cleared or approved by the US Food and Drug Administration. This test was performed in a CLIA certified laboratory and is intended for clinical purposes. EER AML Panel by FISH See Note 03/25/2024 10:34 AM SHIELD INSTALLER [facility] ([facility]) Comment: Authorized individuals can access the [employer] Enhanced Report using the following link: [email or web address] Performed By: [facility] [address] [place] [id number] Manager Program: Uche Morley MD, PhD [place] Number: [id number] Other BONE MARROW SPECIMEN / Unknown Collection / Unknown 03/15/2024 9:05 AM SHIELD INSTALLER 03/15/2024 9:30 AM SHIELD INSTALLER Rodo Perez MD LAB - PATHOLOG Y/CYTOLOGY ORDERABLES [facility]) [address] [place] [id number], [facility] * MYELOID MALIGNANCIES MUTATION PNL (03/15/2024 9:05 AM SHIELD INSTALLER) Only the most recent of2 resultswithin the time period is included. Interpretation Myeloid Malignancy PNL See Note 03/28/2024 2:06 PM SHIELD INSTALLER [facility] ([facility]) Comment: Myeloid Malignancies Mutation Panel NGS Submitted diagnosis or diagnosis under consideration for variant interpretation: Myelodysplastic syndrome, unspecified Note: Prior NGS testing performed on this patient (most recent [facility] accession [id number]) was reviewed in conjunction with the current case to compare molecular variants reported. The previously reported molecular variants DNMT3A, IDH1, and CUX1 are again detected in the current study. In addition, new molecular variants in STAG2, BCOR, JAK2, and CEBPA are now detected. TIER 1: Variants of Known Clinical Significance in Hematologic Malignancies 1. IDH1 c.394C>A, p.Psf826Nwn ([id number]) VAF: 38.4% IDH1 encodes an enzyme that catalyzes the conversion of isocitrate to alpha-ketoglutarate in the citric acid cycle (23). Somatic mutations of IDH1 are found in 4-12% of patients with myelodysplastic syndrome (MDS).This mutation has been reported in hematologic malignancies (4). The prognostic significance of mutated IDH1 in MDS is uncertain (20) (27) (7) (14) (19) (32). 2. DNMT3A c.2206C>T, p.Pqt562Wii ([id number]) VAF: 42.2% DNMT3A encodes a DNA [...] stem cell transplantation (2). 3. DNMT3A c.2407A>G, p.Vns920Plb ([id number]) VAF: 38.8% This mutation has also been reported in hematologic malignancies (4). 4. JAK2 c.1849G>T, p.Xjc258Qrp ([id number]) VAF: 14.4% JAK2 encodes a non-receptor protein tyrosine kinase that regulates STAT machine oiler factors in response to cytokine receptor signaling (13). JAK2 mutations have been reported in 3-6% of patients with MDS (6) (15) (31). This JAK2 mutation (p.Zpk187Sse) has also been reported in approximately 10-25% of patients with myelodysplastic/myeloproliferative neoplasms (MDS/MPN) (31) (21). This particular JAK2 mutation occurs in the pseudokinase (JH2) domain and leads to activation of the NOLAN-STAT pathway signaling. The prognostic significance of JAK2 mutations in MDS is unclear (6). 5. STAG2 c.1840C>T, p.Uyp380* ([id number]) VAF: 31.7% STAG2 encodes a subunit [...] unmutated cohesin genes (29). 6. BCOR c.3649C>T, p.Cjl6236* ([id number]) VAF: 9.6% BCOR encodes a transcriptional corepressor that interacts with BCL-6 and histone deacetylases (HDACs) (5) (12). Mutations in BCOR are seen in 4% of patients with MDS (5) (11). BCOR mutations in MDS are often frameshift and nonsense mutations that result in jvpx-su-izpnbhwb (5) (11). This mutation is predicted to alter the normal function of BCOR. BCOR mutations are associated with a higher incidence of AML transformation in MDS patients and shorter overall survival in MDS patients (5) (11) (16). 7. BCOR c.635_638del, p.Smt945Xlqox*3 ([id number]) VAF: 6.2% This mutation is also predicted to alter the normal function of BCOR. TIER 2: Variants of Unknown Clinical Significance in Hematologic Malignancies 1. CEBPA c.1074_*9del, p.*359Cysext*58 (NM_[id number]) VAF: 4.7% CEBPA encodes a protein that is a member of the basic region leucine zipper family of machine oiler factors (18). Somatic mutations of CEBPA are [...] if any, is uncertain. 2. CUX1 c.3085G>A, p.Upm7954Dqx (NM_[id number]) VAF: 44.8% This variant has been rarely reported in hematologic malignancies (1) (10), to the best of our knowledge. References 1: Gustabo-Fede P, Emmanuelle B, Zhanna CLARK et al, Assessment of Minimal Residual Disease by Next Generation Sequencing in Peripheral Blood as a Complementary Tool for Personalized Transplant Monitoring in Myeloid Neoplasms. J Clin Med 2020. PMID:[id number] 2: Virginie Guo, Juan HERNANDEZ, Ulises Kim et al, Somatic mutations predict poor outcome in patients with myelodysplastic syndrome after hematopoietic stem-cell transplantation. J Clin Oncol 2014. PMID:41282348 3: cBioPortal: http://www.cbioportal.org/ 4: COSMIC: https://cancer.vipin.ac.uk/cosmic 5: Yu Jasso V, Nagata Y et al, BCOR and BCORL1 mutations in myelodysplastic syndromes and related disorders. Blood 2013. PMID:59877993 6: Bill M, Jennifer C, Renee L et al, JAK2 Mutations Are Rare and Diverse in Myelodysplastic Syndromes: Case Series and Review of the Literature. Hematol Rep 2022. PMID:53130982 7: Jahaira GRAY, Kamla E, Mary F et al, IDH1 and IDH2 mutations in myelodysplastic syndromes and role in disease progression. Leukemia 2016. PMID:02770248 8: Asiya Post, Day Rubin, Lenin MURPHY et al, Frequency, onset and clinical impact of somatic DNMT3A mutations in therapy-related and secondary acute myeloid leukemia. Haematologica 2012. PMID:11233364 9: Nuha O, Idania Amador, Luanne Payne et al, CEBPA polymorphisms and mutations in patients with acute myeloid leukemia, myelodysplastic syndrome, multiple myeloma and non-Hodgkin's lymphoma. Blood Cells Mol Dis 2008. PMID:92181975 10: Cassandra Kim, Cornell Payne, Alexis Valdivia et al, DNA methylation epitypes highlight underlying developmental and disease pathways in acute myeloid leukemia. Genome Res 2020. PMID:33118728 11: Jenna Burton, Alondra DEMPSEY et al, Whole-exome sequencing identifies somatic mutations of BCOR in acute myeloid leukemia with normal karyotype. Blood 2011. PMID:54183809 12: Lin RUEDA, Yashira W, Darcie Estrada et al, BCoR, a novel corepressor involved in BCL-6 repression. Genes Dev 2000. PMID:59813617 13: Fabian SS, Jen SJ, Amandeep LR et al, Nolan/STAT pathways in cytokine signaling and myeloproliferative disorders: approaches for targeted therapies. Genes Cancer 2010. PMID:72416831 14: Jose J Broussard, Charity Barcenas, Grayson L et al, Mutations of IDH1 and IDH2 genes in early and accelerated phases of myelodysplastic syndromes and MDS/myeloproliferative neoplasms. Leukemia 2010. PMID:80202627 15: Malaika M, Catherine C, Ahsan W et al, Molecular analysis of myelodysplastic syndrome with isolated deletion of the long arm of chromosome 5 reveals a specific spectrum of molecular mutations with prognostic impact: a study on 123 patients and 27 genes. Haematologica 2017. PMID:[id number] 16: Gregoria BAR, Meliton T, Valerie Payne et al, Spectrum and prognostic relevance of national van truck driver gene mutations in acute myeloid leukemia. Blood 2016. PMID:39106891 17: Mel Hughes, Milton P et al, Dominant-negative mutations of CEBPA, encoding CCAAT/enhancer binding protein-alpha (C/EBPalpha), in acute myeloid leukemia. Yusra Emely 2001. PMID:98570981 18: Mel Hughes, Complexity of CEBPA dysregulation in human acute myeloid leukemia. Clin Cancer Res 2009. PMID:10854610 19: Nargis Estrada, Jose M, Hugh L et al, Clinical and biological implications of national van truck driver mutations in myelodysplastic syndromes. Blood 2013. PMID:[id number] 20: Eileen MURPHY, Rajinder CHRISTY, Juju OTERO et al, Differential prognostic effect of IDH1 versus IDH2 mutations in myelodysplastic syndromes: a [facility] study of 277 patients. Leukemia 2012. PMID:52507944 21: Eileen MURPHY, George TL, Genomics of myelodysplastic syndrome/myeloproliferative neoplasm overlap syndromes. Hematology Am Soc Hematol Educ Program 2019. PMID:95337206 22: Marty C, Malika C, Heather N et al, Favorable prognostic significance of CEBPA mutations in patients with de elinor acute myeloid leukemia: a study from the Acute Leukemia [place] Association (JOSE). Blood 2002. PMID:91464992 23: Bulmaro BENTON, Josse H, Isocitrate dehydrogenase 1 and 2 mutations in cancer: alterations at a crossroads of cellular metabolism. J Natl Cancer Inst 2010. PMID:99312020 24: Ivan Bridges V, Yudi U et al, [place] analysis of DNMT3A mutations in hematological malignancies. Leukemia 2013. PMID:22238299 25: Kim LANZA, Lisa-Pattyhajamison O, Arnulfo REINOSO et al, The role of mutations in epigenetic regulators in myeloid malignancies. Yusra Rev Cancer 2012. PMID:[id number] 26: Robby F, Hubert JA, Efrem M et al, CEBPA mutations in 4708 patients with acute myeloid leukemia: differential impact of bZIP and TAD mutations on outcome. Blood 2021. PMID:[id number] 27: Fabiola Mason, Roverto ASH, Sam J et al, IDH1 mutations in patients with myelodysplastic syndromes are associated with an unfavorable prognosis. Haematologica 2010. PMID:[id number] 28: Lisa Richmond, Bro Valdivia et al, Rare occurrence of DNMT3A mutations in myelodysplastic syndromes. Haematologica 2011. PMID:[id number] 29: oJsey S, Liam AD, Ivanishiwilberto H et al, Genetic alterations of the cohesin complex genes in myeloid malignancies. Blood 2014. PMID:[id number] 30: Barrett MERRITT, Tono L, Jossue Amador et al, Recurrent DNMT3A mutations in patients with myelodysplastic syndromes. Leukemia 2011. PMID:[id number] 31: Lawrence Camargo, Juan Diego Kim, Comparison and Implications of Mutational Profiles of Myelodysplastic Syndromes, Myeloproliferative Neoplasms, and Myelodysplastic/Myeloproliferative Neoplasms: A Nogal-Analysis. Front Oncol 2020. PMID:[id number] 32: Sarabia N, Sarabia F, Yuval N et al, IDH1 Mutation Is an Independent Inferior Prognostic Indicator for Patients with Myelodysplastic Syndromes. Acta Haematol 2017. PMID:[id number] 33: Ochoa L, Gabriella R, Hieu ALBERTS, DNMT3A in haematological malignancies. Yusra Rev Cancer 2015. PMID:[id number] This result has been reviewed and approved by Jannette Dutta M.D. Low coverage regions: Listed below are regions where the average sequencing depth (number of times a particular nucleotide is sequenced) in at least 20% of the ywxxcg-ny-xahgwcbg is less than our stringent cutoff of [...] NOTCH1; NPM1*; NRAS; NSD1; PHF6; PIGA; PPM1D; MCXV28L; PRPF8; PTPN11; RAD21; RUNX1; SAMD9; SAMD9L; SETBP1; [...] developed and its performance characteristics determined by [facility]. It has not been cleared or approved by the U.S. Food and Drug Administration. This test was performed in a CLIA-certified laboratory and is intended for clinical purposes. Myeloid Malignancy Dx Mds Unspec 03/28/2024 2:06 PM SHIELD INSTALLER [facility] ([facility]) Myeloid Malignancy Panel Specimen Bone Marrow 03/28/2024 2:06 PM SHIELD INSTALLER [facility] ([facility]) EER Myeloid Malignancy See Note 03/28/2024 2:06 PM SHIELD INSTALLER [facility] ([facility]) Comment: Authorized individuals can access the [facility] Enhanced Report using the following link: [email or web address] Performed By: [facility] [address] [place] [address] Manager Program: Uche Morley MD, PhD [place] Number: [id number] Other BONE MARROW SPECIMEN / Unknown Collection / Unknown 03/15/2024 9:05 AM SHIELD INSTALLER 03/15/2024 9:30 AM SHIELD INSTALLER Rodo Perez MD LAB - PATHOLOG Y/CYTOLOGY ORDERABLES [facility]) [address] [place] [address], [facility] * FISH PML/DANTE PANEL (03/15/2024 9:05 AM SHIELD INSTALLER) Only the most recent of2 resultswithin the time period is included. EER PML/DANTE Translocation by Fish See Note 03/17/2024 4:41 PM SHIELD INSTALLER [facility] ([facility]) Comment: Authorized individuals can access the [facility] Enhanced Report using the following link: [email or web address] Performed By: [facility] [address] [place] [address] Manager Program: Uche Morley MD, PhD [place] Number: [id number] PML/DANTE Translocation by FISH See Note 03/17/2024 4:41 PM SHIELD INSTALLER [facility] ([facility]) Comment: Test Performed: PML-DANTE Translocation by [...] reviewed and approved by Nabila Gonzalez, PhD, [facility] A portion of this analysis was performed at the following location(s): [facility] Site CG-NH#[id number] INTERPRETIVE INFORMATION: PML/DANTE Translocation by FISH This test was developed and its performance characteristics determined by [facility]. It has not been cleared or approved by the US Food and Drug Administration. This test was performed in a CLIA certified laboratory and is intended for clinical purposes. Other BONE MARROW SPECIMEN / Unknown Collection / Unknown 03/15/2024 9:05 AM SHIELD INSTALLER 03/15/2024 9:30 AM SHIELD INSTALLER Rodo Perez MD LAB - PATHOLOG Y/CYTOLOGY ORDERABLES [facility] ([facility]) [address] [place] [address], [facility] * FLOW CYTOMETRY BLOOD PROFILE (03/14/2024 10:32 AM SHIELD INSTALLER) Case Report Flow Cytometry Case: [id number] Authorizing Provider: Ghanshyam Dewey PA-C Collected: 03/14/2024 10:32 AM Ordering Location: [facility] Received: 03/14/2024 01:49 PM Pathologist: Angeles Rosado MD Specimen: Blood 03/14/2024 4:58 PM [facility] Final Diagnosis Peripheral blood, flow cytometric immunophenotypic analysis: - 1.2% myeloblasts detected - No evidence of a monoclonal B-cell population - See interpretation 03/14/2024 4:58 PM [facility] Flow Cytometry Results Differential Result Comment WBC Count /uL 1,200 Total Viability % 100.0 Lymphocytes % 80 Dim CD45 Region % 4 Monocytes % 4 Granulocytes % 13 03/14/2024 4:58 PM [facility] Flow Cytometry Interpretation Viability: 100% B-cells: polytypic, kappa:lambda ratio 1.1:1. Blasts: 1.2% of events are myeloblasts. Monocytes are mature. A peripheral blood smear prepared from the flow cytometry specimen has been reviewed for quality management nurse purposes. 03/14/2024 4:58 PM [facility] Reason for test MDS (myelodysplastic syndrome) (HCC) 238.75 03/14/2024 4:58 PM [facility] Client Specimen ID # [id number] 03/14/2024 4:58 PM [facility] Pathologist Location at [facility] 03/14/2024 4:58 PM [facility] Disclaimer Test performed at [facility], [address] [place] [address], [address]. *The established laboratory minimum viability is 70%. [...] high complexity clinical testing. 03/14/2024 4:58 PM SHIELD INSTALLER [facility] Embedded Images 4:58 PM SHIELD INSTALLER [facility] Number of markers 19 were performed. A-2 Flow CD10 A-3 Flow CD13 A-5 Flow CD20 A-11 Flow CD2 A-13 Flow CD14 A-16 Flow CD117 A-17 Flow CD11b A-18 Flow CD11c A-1 Flow CD5 A-4 Flow CD19 A-6 Flow CD33 A-7 Flow CD34 A-8 Flow CD45 A-12 Flow CD7 A-14 Flow CD56 A-15 Flow CD64 A-9 Dukedom+CD19+ A-10 Lambda+CD19+ A-19 Flow HLA-DR 03/14/2024 4:58 PM SHIELD INSTALLER [facility] Blood BLOOD SPECIMEN / Unknown Lab Venipuncture / Unknown 03/14/2024 10:32 AM SHIELD INSTALLER 03/14/2024 1:49 PM SHIELD INSTALLER Ghanshyam Dewey PA-C LAB - PATHOLOGY/CYTO LOGY ORDERABLES Performing Organization Address City/State/[facility] Co de Phone Number [facility] [address] [phone] * CYTOMEGALOVIRUS (CMV) QUANTITATIVE PLASMA (03/13/2024 11:26 PM SHIELD INSTALLER) CMV Quant by PCR, Interp Not detected Not detected 03/14/2024 9:00 AM SHIELD INSTALLER [facility] Blood BLOOD SPECIMEN / Unknown Venipuncture / Unknown 03/13/2024 11:26 PM SHIELD INSTALLER 03/13/2024 11:37 PM SHIELD INSTALLER Narrative [facility] - 03/14/2024 9:00 AM SHIELD INSTALLER The Cytomegalovirus (CMV) DNA analysis utilized a [...] [facility] [address] [place] [address], [facility] [phone] * QUINN-RICHMOND VIRUS QUANT BLOOD STL (03/13/2024 11:26 PM SHIELD INSTALLER) Pathologist [facility] EBV Quant by PCR, Interp Not detected Not detected 03/14/2024 8:56 AM SHIELD INSTALLER [facility] Specimen Type Plasma 03/14/2024 8:56 AM SHIELD INSTALLER [facility] Blood BLOOD SPECIMEN / Unknown Venipuncture / Unknown 03/13/2024 11:26 PM SHIELD INSTALLER 03/13/2024 11:37 PM SHIELD INSTALLER Narrative [facility] - 03/14/2024 8:56 AM SHIELD INSTALLER The Quinn-Richmond viral (EBV) DNA analysis utilized [...] OR DERABLES [facility] [address] [facility] [place] [address], [facility] [phone] * D-DIMER (03/13/2024 11:26 PM SHIELD INSTALLER) D-Dimer Quantitative <0.27 <=0.50 mcg/mL FEU 03/14/2024 12:00 AM SHIELD INSTALLER [facility] Comment: In the absence [...] Unknown Venipuncture / Unknown 03/13/2024 11:26 PM SHIELD INSTALLER 03/13/2024 11:37 PM SHIELD INSTALLER Ted Soler MD LAB - COAGULATION ORDERABLES [address] [address], [facility] [phone] * FIBRINOGEN ACTIVITY (03/13/2024 11:26 PM SHIELD INSTALLER) Fibrinogen [place] 362 200 - 400 mg/dL 03/13/2024 11:59 PM SHIELD INSTALLER [facility] Blood BLOOD SPECIMEN / Unknown Venipuncture / Unknown 03/13/2024 11:26 PM SHIELD INSTALLER 03/13/2024 11:37 PM SHIELD INSTALLER Ted Soler MD LAB - COAGULATION ORDERABLES [address] [address] [phone] * FISH AML+MDS PANEL BLOOD OR BONE MARROW (03/04/2024 4:13 PM SHIELD INSTALLER) [facility] FISH AML with MDS, Therapy-Rltd AML See Note Normal 03/19/2024 4:32 PM SHIELD INSTALLER [facility] ([facility]) Comment: Test Performed: Acute Myelogenous Leukemia [...] with the Therapy-Related AML panel probes D5S23/EGR1, D7Z1/X8A367, and MLL (KMT2A) ([place]). A total of 200 cells were scored for each probe. Cytogenomic Nomenclature (ISCN): nuc nereyda(D5S23,EGR1,D7Z1,D8A631,KMT2A)x2[200' This result has been reviewed and approved by Charles Pablo MD, [facility] INTERPRETIVE INFORMATION: AML with MDS, Therapy-Related AML, FISH This test was developed and its performance characteristics determined by [facility]. It has not been cleared or approved by the US Food and Drug Administration. This test was performed in a CLIA certified laboratory and is intended for clinical purposes. EER AML with MDS, Therapy-Rltd AML FISH See Note 03/19/2024 4:32 PM SHIELD INSTALLER [facility] ([facility]) Comment: Authorized individuals can access the [facility] Enhanced Report using the following link: [email or web address] Performed By: [facility] [address] [place] [address] Manager Program: Uche Morley MD, PhD CLIA Number: [id number] Other BLOOD SPECIMEN / Unknown Collection / Unknown 03/04/2024 4:13 PM SHIELD INSTALLER 03/04/2024 4:23 PM SHIELD INSTALLER Cindy Garcia MD LAB - PATHOLOGY/CYTO LOGY ORDERABLES [facility]) [address] [place] [address], [facility] * HLA TYPING LOW/HIGH RESOLUTION DPB1 (03/04/2024 4:13 PM SHIELD INSTALLER) Typ DNA LR DPB1 Allele #1 *04 04/29/2024 2:56 PM SHIELD INSTALLER [facility] ([facility]) Typ DNA LR DPB1 Allele #2 *11 04/29/2024 2:56 PM SHIELD INSTALLER [facility] ([facility]) Typ DNA HR DPB1 Allele #1 *04:01:01G 04/29/2024 2:56 PM SHIELD INSTALLER [facility] ([facility]) Typ DNA HR DPB1 Allele #2 *11:01:01G 04/29/2024 2:56 PM SHIELD INSTALLER [facility] ([facility]) Test Methodology RTPCR/NGS 04/29/19 2:56 PM SHIELD INSTALLER [facility] ([facility]) Date Results Entered [id number] 04/29/2024 2:56 PM SHIELD INSTALLER [facility] ([facility]) Comment: Methodology - Next Generation Sequencing This test was developed and its performance characteristics determined by the [facility]. It has not been cleared [...] high complexity clinical laboratory testing. CLIA ID# [id number] Performed at: [facility], [address] [place] [address] Cemetery Laborer: Sandeep Jerry, Ph.D., D([facility]), Blood BLOOD SPECIMEN / Unknown Lab Venipuncture / Unknown 03/04/2024 4:13 PM SHIELD INSTALLER 03/05/2024 9:56 AM SHIELD INSTALLER Cindy Garcia MD LAB - BLOOD BANK ORD ERABLES [facility] ([facility]) [address] [place], [place] [address] [place] [address] * HLA TYPING DNA LOW RESOLUTION DR,DQ (03/04/2024 4:13 PM SHIELD INSTALLER) DR DQ Low Resolution DRB1-1 *07 04/29/2024 2:56 PM SHIELD INSTALLER [facility] ([facility]) DR DQ Low Resolution DQB1-1 *02 04/29/2024 2:56 PM SHIELD INSTALLER [facility] ([facility]) DR DQ Low Resolution DRB3-1 Negative 04/29/2024 2:56 PM SHIELD INSTALLER [facility] ([facility]) DR DQ Low Resolution DRB3-2 Negative 04/29/2024 2:56 PM SHIELD INSTALLER [facility] ([facility]) DR DQ Low Resolution DRB4-1 *01 04/29/2024 2:56 PM SHIELD INSTALLER [facility] ([facility]) DR DQ Low Resolution DRB4-2 Negative 04/29/2024 2:56 PM SHIELD INSTALLER [facility] ([facility]) DR DQ Low Resolution DRB5-1 Negative 04/29/2024 2:56 PM SHIELD INSTALLER [facility] ([facility]) DR DQ Low Resolution DRB5-2 Negative 04/29/2024 2:56 PM SHIELD INSTALLER [facility] ([facility]) DR DQ Low Resolution Methodology Real Time PCR 04/29/2024 2:56 PM SHIELD INSTALLER [facility] ([facility]) DR DQ Low Resolution test date [id number] 04/29/2024 2:56 PM SHIELD INSTALLER [facility] ([facility]) Comment: Methodology - Real-Time PCR This test was developed and its performance characteristics determined by the [facility]. It has not been cleared [...] high complexity clinical laboratory testing. CLIA ID# [id number] Performed at: [facility], [address] [place] [id number] Cemetery Laborer: Sandeep Jerry, Ph.D., D([facility]), Blood BLOOD SPECIMEN / Unknown Lab Venipuncture / Unknown 03/04/2024 4:13 PM SHIELD INSTALLER 03/05/2024 9:56 AM SHIELD INSTALLER Cindy Garcia MD LAB - BLOOD BANK ORD ERABLES [facility] ([facility]) [address] * HLA TYPING DNA LOW RESOLUTION A,B,C (03/04/2024 4:13 PM SHIELD INSTALLER) ABC DNA A1 *02 04/29/2024 2:56 PM SHIELD INSTALLER [facility] ([facility]) ABC DNA A2 *30 04/29/2024 2:56 PM SHIELD INSTALLER [facility] ([facility]) ABC DNA B1 *13 04/29/2024 2:56 PM SHIELD INSTALLER [facility] ([facility]) ABC DNA B2 *44 04/29/2024 2:56 PM SHIELD INSTALLER [facility] ([facility]) ABC DNA BW1 4 04/29/2024 2:56 PM SHIELD INSTALLER [facility] ([facility]) ABC DNA BW2 4 04/29/2024 2:56 PM SHIELD INSTALLER [facility] ([facility]) ABC DNA C1 *06 04/29/2024 2:56 PM SHIELD INSTALLER [facility] ([facility]) ABC DNA C2 *16 04/29/2024 2:56 PM SHIELD INSTALLER [facility] ([facility]) ABC DNA Methodology Real Time PCR 04/29/2024 2:56 PM SHIELD INSTALLER [facility] ([facility]) ABC DNA Test Date [id number] 2:56 PM SHIELD INSTALLER [facility] ([facility]) Comment: Methodology - Real-Time PCR This test was developed and its performance characteristics determined by the [facility]. It has not been cleared [...] high complexity clinical laboratory testing. CLIA ID# [id number] Performed at: [facility], [address] [place] [address] Cemetery Laborer: Sandeep Jerry, Ph.D., D([facility]), Blood BLOOD SPECIMEN / Unknown Lab Venipuncture / Unknown 03/04/2024 4:13 PM SHIELD INSTALLER 03/05/2024 9:56 AM SHIELD INSTALLER Cindy Garcia MD LAB - BLOOD BANK ORD ERABLES [facility] ([facility]) [address] [place] [address] * HLA TYPING DNA HIGH RESOLUTION DR (03/04/2024 4:13 PM SHIELD INSTALLER) Blood BLOOD SPECIMEN / Unknown Lab Venipuncture / Unknown 03/04/2024 4:13 PM SHIELD INSTALLER 03/05/2024 9:56 AM SHIELD INSTALLER Narrative [facility] ([facility]) - 04/29/2024 4:00 PM SHIELD INSTALLER See Scanned Report Cindy Garcia MD LAB - BLOOD BANK ORD ERABLES Performing Organization Address City/[facility]/ZIP Co de Phone Number [facility] ([facility]) [address] * HLA TYPING DNA HIGH RESOLUTION DQ (03/04/2024 4:13 PM SHIELD INSTALLER) Blood BLOOD SPECIMEN / Unknown Lab Venipuncture / Unknown 03/04/2024 4:13 PM SHIELD INSTALLER 03/05/2024 9:56 AM SHIELD INSTALLER Narrative [facility] ([facility]) - 04/29/2024 4:00 PM SHIELD INSTALLER See Scanned Report Cindy Garcia MD LAB - BLOOD BANK ORD ERABLES [facility] ([facility]) [address] [place] [address] * HLA TYPING DNA HIGH RESOLUTION B (03/04/2024 4:13 PM SHIELD INSTALLER) Blood BLOOD SPECIMEN / Unknown Lab Venipuncture / Unknown 03/04/2024 4:13 PM SHIELD INSTALLER 03/05/2024 9:56 AM SHIELD INSTALLER Narrative [facility] ([facility]) - 04/29/2024 4:00 PM SHIELD INSTALLER See Scanned Report Cindy Garcia MD LAB - BLOOD BANK ORD OriginOilBLES Performing Organization Address City/[facility]/ZIP Co de Phone Number [facility] ([facility]) [facility] * HLA TYPING DNA HIGH RESOLUTION A (03/04/2024 4:13 PM SHIELD INSTALLER) Blood BLOOD SPECIMEN / Unknown Lab Venipuncture / Unknown 03/04/2024 4:13 PM SHIELD INSTALLER 03/05/2024 9:56 AM SHIELD INSTALLER Narrative [facility] ([facility]) - 04/29/2024 4:01 PM SHIELD INSTALLER See Scanned Report Cindy Garcia MD LAB - BLOOD BANK ORD ERABLES [facility] ([facility]) [address] * HLA TYPING DNA HIGH RESOLUTION C (03/04/2024 4:13 PM SHIELD INSTALLER) Blood BLOOD SPECIMEN / Unknown Lab Venipuncture / Unknown 03/04/2024 4:13 PM SHIELD INSTALLER 03/05/2024 9:56 AM SHIELD INSTALLER Narrative [facility] ([facility]) - 04/29/2024 4:01 PM SHIELD INSTALLER See Scanned Report Cindy Garcia MD LAB - BLOOD BANK ORD ZEUSBLES [facility] ([facility]) [address] [place] [address], [facility] * CHROMOSOME ANALYSIS LEUKEMIA BLD (03/04/2024 4:13 PM SHIELD INSTALLER) [facility] Chromosome Analysis Leukemic Blood See Note Normal 03/23/2024 12:39 PM SHIELD INSTALLER [facility] ([facility]) Comment: Test Performed: Chromosome Analysis Specimen [...] FISH AML/PML and TAML MDS performed under [facility] accessions [id number] and [id number] were NORMAL. This result has been reviewed and approved by Margaret Roberson, PhD, [facility] INTERPRETIVE INFORMATION: Chromosome Analysis, Leukemic Blood This test was developed and its performance characteristics determined by [facility]. It has not been cleared or approved by the US Food and Drug Administration. This test was performed in a CLIA certified laboratory and is intended for clinical purposes. EER Chromosome Analysis Leukemic See Note 03/23/2024 12:39 PM SHIELD INSTALLER [facility] ([facility]) Comment: Authorized individuals can access the [facility] Enhanced Report using the following link: [email or web address] Performed By: [facility] [address] [place] [address] Manager Program: Uche Morley MD, PhD CLIA Number: [id number] Blood BLOOD SPECIMEN / Unknown Lab Venipuncture / Unknown 03/04/2024 4:13 PM SHIELD INSTALLER 03/22/2024 5:28 PM SHIELD INSTALLER Cindy Garcia MD LAB - PATHOLOGY/CYTO LOGY ORDERABLES Performing Organization Address City/[facility]/ZIP Co de Phone Number [facility] [employer]) [address] [place] [address] * HIV-1 HIV-2 ANTIBODY + HIV P24 AG PANEL (New on 08/24) (03/04/2024 4:13 PM SHIELD INSTALLER) [facility] HIV Antigen/Antibod y 1 & 2 Non-reacti ve Non-react carlos 03/04/2024 5:12 PM SHIELD INSTALLER [facility] Comment:No Laboratory eviden ce of HIV infection. Blood BLOOD SPECIMEN / Unknown Lab Venipuncture / Unknown 03/04/2024 4:13 PM SHIELD INSTALLER 03/04/2024 4:23 PM SHIELD INSTALLER Cindy Garcia MD LAB - CHEMISTRY ORDNatalie MONREAL [address] [address], [place] [phone] * BCR-ABL1 CML+AML PCR QUANT PNL (03/04/2024 4:13 PM SHIELD INSTALLER) Pathologist [facility] Interpretation TNP 03/13/2024 5:08 PM SHIELD INSTALLER [facility] ([facility]) Comment: Unable to obtain results. Repeated efforts to analyze this specimen have been unsuccessful. LOW CONTROL GENE COPY NUMBER INDICATED SPECIMEN DEGRADATION. Director Review Comment 5:08 PM [facility] Comment: Dawood Sarabia, PhD, [facility] Director, Molecular Oncology [facility] [place] [address] Background Comment 03/13/2024 5:08 PM [facility] ([facility]) Comment: This assay can detect three [...] as indicated. Methodology Comment 03/13/2024 5:08 PM [facility] ([facility]) Comment: Total RNA is isolated from [...] developed and its performance characteristics determined by [facility]. It has not been cleared or approved by the Food and Drug Administration. Blood BLOOD SPECIMEN / Unknown Lab Venipuncture / Unknown 03/04/2024 4:13 PM SHIELD INSTALLER 03/04/2024 4:24 PM SHIELD INSTALLER N[facility]ative [facility]) - 03/13/2024 5:08 PM SHIELD INSTALLER Performed at: 01 - [facility] [place] [address] [facility], [place], [place] [id number] Cemetery Laborer: Cinthya Roper [facility], Phone: [phone] Performed at: 02 - [facility] [place] [address], [place], [place] [id number] Cemetery Laborer: Cinthya Roper [facility], Phone: [phone] iCndy Garcia MD LAB - CHEMISTRY CHELI MONREAL [facility] ([facility]) [address] [id number] * TSH REFLEX FREE T4 (03/04/2024 4:13 PM SHIELD INSTALLER) TSH 0.961 0.350 - 4.940 uIU/mL 03/04/2024 5:29 PM SHIELD INSTALLER [facility] Blood BLOOD SPECIMEN / Unknown Lab Venipuncture / Unknown 03/04/2024 4:13 PM SHIELD INSTALLER 03/04/2024 4:27 PM SHIELD INSTALLER Cindy Garcia MD LAB - CHEMISTRY CHELI MONREAL [address] [address], [place] [phone] * RHEUMATOID FACTOR BLOOD QUANTITATIVE (03/04/2024 4:13 PM SHIELD INSTALLER) Rheumatoid Factor <15 <30 IU/mL 03/04/2024 4:57 PM SHIELD INSTALLER [facility] Rheumatoid Factor Screen Negative Negative 03/04/2024 4:57 PM SHIELD INSTALLER [facility] Blood BLOOD SPECIMEN / Unknown Lab Venipuncture / Unknown 03/04/2024 4:13 PM SHIELD INSTALLER 03/04/2024 4:23 PM SHIELD INSTALLER Cindy Garcia MD LAB - CHEMISTRY CHELI [facility]RE[facility] [address] [address], [place] [phone] * CYTOMEGALOVIRUS ANTIBODY IGG BLOOD (03/04/2024 4:13 PM SHIELD INSTALLER) [facility] Cytomegalovirus Antibody IgG <0.20 <=0.70 U/mL 03/05/2024 9:27 PM SHIELD INSTALLER [facility] Comment: INTERPRETIVE INFORMATION: Cytomegalovirus Antibody, IgG [...] laboratory at the same time. Performed By: [facility] [employer] [address] [place] [address] Manager Program: Uche Morley MD, PhD CLIA Number: [id number] Blood BLOOD SPECIMEN / Unknown Lab Venipuncture / Unknown 03/04/2024 4:13 PM SHIELD INSTALLER 03/04/2024 4:23 PM SHIELD INSTALLER Cindy Garcia MD LAB - CHEMISTRY CHELI MONREAL [facility] [employer] [facility]) [address] [place] [address] * C-REACTIVE PROTEIN (03/04/2024 4:13 PM SHIELD INSTALLER) [facility] C-Reactive Protein 0.5 <=0.5 mg/dL 03/04/2024 4:56 PM SHIELD INSTALLER [facility] Blood BLOOD SPECIMEN / Unknown Lab Venipuncture / Unknown 03/04/2024 4:13 PM SHIELD INSTALLER 03/04/2024 4:27 PM SHIELD INSTALLER Cindy Garcia MD LAB - CHEMISTRY CHELI MONREAL [address] [address], [facility] [phone] * MARLINE BLOOD SCREEN W/REFLEX TITER (03/04/2024 4:13 PM SHIELD INSTALLER) MARLINE IgG None Detected None Detected 03/05/2024 11:42 PM SHIELD INSTALLER [employer] ([facility]) Comment: If suspicion of connective tissue disease is strong and MARLINE EIA is negative, consider testing for MARLINE by IFA ([id number]). INTERPRETIVE INFORMATION: Anti-Nuclear Antibodies (MARLINE), IgG by TOÑA Antinuclear Antibodies (MARLINE), IgG by TOÑA: MARLINE specimens are screened using enzyme-linked immunosorbent assay (TOÑA) methodology. All TOÑA results reported as Detected are further tested by indirect fluorescent assay (IFA) using HEp-2 substrate with an IgG-specific conjugate. The MARLINE TOÑA screen is designed to detect antibodies against dsDNA, histones, SS-A (Ro), SS-B (La), Pimentel, Pimentel/DIGITAL FORENSICS EXAMINER, Scl-70, Mey-1, centromeric proteins, other antigens extracted from the HEp-2 cell nucleus. MARLINE TOÑA assays have been reported to have lower sensitivities than MARLINE IFA for systemic autoimmune rheumatic diseases (SARD). Negative results do not necessarily rule out SARD. Performed By: [employer] [address] [place] [address] Manager Program: Uche Morley MD, PhD CLIA Number: [id number] Blood BLOOD SPECIMEN / Unknown Lab Venipuncture / Unknown 03/04/2024 4:13 PM SHIELD INSTALLER 03/04/2024 4:23 PM SHIELD INSTALLER Cindy Garcia MD LAB - CHEMISTRY CHELI MONREAL [employer] [facility]) [address] * ZINC BLOOD (03/04/2024 4:13 PM SHIELD INSTALLER) Zinc 62.4 60.0 - 120.0 ug/dL 03/06/2024 6:35 AM SHIELD INSTALLER [facility] ([facility]) Comment: INTERPRETIVE INFORMATION: Zinc, Serum or [...] developed and its performance characteristics determined by [employer]. It has not been cleared or approved by the US Food and Drug Administration. This test was performed in a CLIA certified laboratory and is intended for clinical purposes. Performed By: [employer] [address] [place] [address] Manager Program: Uche Morley MD, PhD CLIA Number: [id number] Blood BLOOD SPECIMEN / Unknown Lab Venipuncture / Unknown 03/04/2024 4:13 PM SHIELD INSTALLER 03/04/2024 4:23 PM SHIELD INSTALLER Cindy Garcia MD LAB - CHEMISTRY ORDE [facility] Organization Address City/State/ZIP Co de Phone Number [facility]) [address] [place], [place] [address] * COPPER BLOOD (03/04/2024 4:13 PM SHIELD INSTALLER) Copper 108.5 70.0 - 140.0 ug/dL 03/06/2024 6:35 AM SHIELD INSTALLER [facility] ([facility]) Comment: INTERPRETIVE INFORMATION: Copper, Serum or [...] developed and its performance characteristics determined by [employer]. It has not been cleared or approved by the US Food and Drug Administration. This test was performed in a CLIA certified laboratory and is intended for clinical purposes. Performed By: [place] [address] Manager Program: Uche Morley MD, PhD CLIA Number: [id number] Blood BLOOD SPECIMEN / Unknown Lab Venipuncture / Unknown 03/04/2024 4:13 PM SHIELD INSTALLER 03/04/2024 4:23 PM SHIELD INSTALLER Cindy Garcia MD LAB - CHEMISTRY ORDE RABLES Performing Organization Address [facility]/ZIP Co de Phone Number [facility]) [address] [place] [address] * ERYTHROCYTE SEDIMENTATION RATE (03/04/2024 4:13 PM SHIELD INSTALLER) [facility] Erythrocyte Sedimentation Rate Westergren 14 0 - 20 MM/HR 03/04/2024 5:10 PM SHIELD INSTALLER [facility] Blood BLOOD SPECIMEN / Unknown Lab Venipuncture / Unknown 03/04/2024 4:13 PM SHIELD INSTALLER 03/04/2024 4:27 PM SHIELD INSTALLER Cindy Garcia MD LAB - HEMATOLOGY ORD ERABLES Performing Organization Address City/[facility]/ZIP Co de Phone Number [facility] [address] [place] [address], [facility] [phone] * HEPATITIS B SURFACE ANTIBODY (03/04/2024 4:13 PM SHIELD INSTALLER) Pathologist [facility] Hepatitis B Virus Surface Antibody Non-react carlos Non-react carlos 03/04/2024 5:12 PM SHIELD INSTALLER [facility] Comment: < 8 mIU/mL Hepatitis B surface Antibody (HBsAb). Nonreactive for HBsAb - individual is considered not immune to Hepatitis B Virus infection. Hepatitis B Surface Antibody Quantitative 0.3 <8.0 mIU/mL 03/04/2024 5:12 PM SHIELD INSTALLER [facility] Comment: Hepatitis B Surface Antibody Numeric Result Interpretation: Nonreactive: <8.0 mIU/mL Indeterminate: 8.0 - 12.0 mIU/mL Reactive: >12.0 mIU/mL Blood BLOOD SPECIMEN / Unknown Lab Venipuncture / Unknown 03/04/2024 4:13 PM SHIELD INSTALLER 03/04/2024 4:23 PM SHIELD INSTALLER Cindy Garcia MD LAB - CHEMISTRY CHELI MONREAL [address] [address], [place] [phone] * HEPATITIS B CORE ANTIBODY TOTAL (03/04/2024 4:13 PM SHIELD INSTALLER) HBc Antibody Total Non-reacti ve Non-reacti ve 03/04/2024 5:12 PM SHIELD INSTALLER [facility] Blood BLOOD SPECIMEN / Unknown Lab Venipuncture / Unknown 03/04/2024 4:13 PM SHIELD INSTALLER 03/04/2024 4:23 PM SHIELD INSTALLER Cindy Garcia MD LAB - CHEMISTRY CHELI MONREAL [address] [address], [place] [phone] * FOLATE (03/04/2024 4:13 PM SHIELD INSTALLER) Pathologist [facility] Folate 17.7 7.0 - 31.4 ng/mL 03/04/2024 5:29 PM SHIELD INSTALLER [facility] Blood BLOOD SPECIMEN / Unknown Lab Venipuncture / Unknown 03/04/2024 4:13 PM SHIELD INSTALLER 03/04/2024 4:27 PM SHIELD INSTALLER Cindy Garcia MD LAB - CHEMISTRY CHELI MONREAL [address] [address], [place] [phone] * VITAMIN B12 (03/04/2024 4:13 PM SHIELD INSTALLER) Vitamin B12 524 213 - 816 pg/mL 03/04/2024 5:29 PM SHIELD INSTALLER [facility] Blood BLOOD SPECIMEN / Unknown Lab Venipuncture / Unknown 03/04/2024 4:13 PM SHIELD INSTALLER 03/04/2024 4:27 PM SHIELD INSTALLER Cindy Garcia MD LAB - CHEMISTRY CHELI MONREAL [facility] [address] [place] [address], [place] [phone] * (ABNORMAL) IRON + TRANSFERRIN PANEL [w/Transferrin Sat % + TIBC] (03/04/2024 4:13 PM SHIELD INSTALLER) [facility] Iron 31(L) 50 - 175 ug/dL 03/04/2024 4:53 PM SHIELD INSTALLER [facility] Transferrin 257 174 - 382 mg/dL 03/04/2024 4:53 PM SHIELD INSTALLER [facility] Transferrin Saturation % 10(L) 16 - 50 % 03/04/2024 4:53 PM SHIELD INSTALLER [facility] TIBC Calculated 321 240 - 450 ug/dL 03/04/2024 4:53 PM SHIELD INSTALLER [facility] Blood BLOOD SPECIMEN / Unknown Lab Venipuncture / Unknown 03/04/2024 4:13 PM SHIELD INSTALLER 03/04/2024 4:23 PM SHIELD INSTALLER Cindy Garcia MD LAB - CHEMISTRY CHELI MONREAL [address] [address], [facility] [phone] * HEPATITIS C ANTIBODY (03/04/2024 4:13 PM SHIELD INSTALLER) [facility] Hepatitis C Antibody Non-react carlos Non-reac tive 03/04/2024 5:12 PM SHIELD INSTALLER [facility] Comment:Hepatitis C Antibody screen indicates [...] Lab Venipuncture / Unknown 03/04/2024 4:13 PM SHIELD INSTALLER 03/04/2024 4:23 PM SHIELD INSTALLER Cindy Garcia MD LAB - CHEMISTRY CHELI MONREAL [facility] [address] [place] [address], [place] [phone] * (ABNORMAL) FERRITIN (03/04/2024 4:13 PM SHIELD INSTALLER) Ferritin 21(L) 22 - 275 ng/mL 03/04/2024 5:12 PM SHIELD INSTALLER [facility] Blood BLOOD SPECIMEN / Unknown Lab Venipuncture / Unknown 03/04/2024 4:13 PM SHIELD INSTALLER 03/04/2024 4:23 PM SHIELD INSTALLER Cindy Garcia MD LAB - CHEMISTRY CHELI MONREAL [facility] [address] [place] [address], [place] [phone] from Last 3 Months Advance Directives * Full Code (Latest Code Status on File) Date Activated Date Inactivated Comments 03/13/2024 9:41 PM 03/23/2024 2:56 PM Care Teams General Passenger Agent Relationship Specialty Start Date End Date Timothy Banks MD [address] [place] [address] PCP - General 10/19/18 Cindy Garcia MD [address] [place] [address] Multilith Operator/Oncologis t Hematology and Oncology 03/24/24
--- OUTSIDE RECORDS SUMMARY | 2024-06-03 16:35 | XMS_ITS | Encounter Summary ---
Author Organization [facility] [employer] [facility] Address [address] [place] [address] Care Team Providers Care Sanitation Truck Cleaner Name Role Phone Timothy Banks MD Primary Care Provider [phone] Encounter Details Date Type Department Care Team (Late st Contact Info) Description 06/03/2024 Orders Only [facility] Oncology and Hematology - [place] [address] [facility] [address] [place] [address] Frank Singh MD [address] [facility] [address] [place] [address] 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) Social History Tobacco Use Types Packs/Day Years Used Date Smoking Tobacco: Never Smokeless Tobacco: Never Alcohol Use Standard Drinks/Week Comments Yes 0 (1 standard drink = 0.6 oz pur e alcohol) Very Ocasionally Sex and Gender Information Value Date Recorded Sex Assigned at Male 04/05/2024 3:07 PM ASSISTANT DIRECTOR Legal Sex Male 10:53 AM CDT Gender Identity Male 04/05/2024 3:07 PM ASSISTANT DIRECTOR Sexual Orientation Not on file documented as of this encounter Plan of Treatment Not on file documented as of this encounter Procedures Procedure Name Priority Date/Time Associated Diagnosis Comments CBC WITH DIFFERENTIAL Routine 06/03/2024 4:15 PM ASSISTANT DIRECTOR documented in this encounter Results * CBC WITH DIFFERENTIAL (06/03/2024 4:15 PM ASSISTANT DIRECTOR) Blood Frank Singh MD HEMATOLOGY ORDERABLES Final Res ult documented in this encounter Visit Diagnoses Diagnosis 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 [address] PCP - General Family Practice 02/01/24 documented as of this encounter
--- OUTSIDE RECORDS SUMMARY | 2024-06-03 16:35 | XMS_ITS | Referral Summary ---
Author Organization [facility] [address] [place] [address] [address] [place] [address] Care Team Providers Care Element Winding Machine Tender Name Role Phone Timothy Banks MD Primary Care Provider Encounters Date Type Department Care Team Description 04/25/2024 3:00 PM INTERCHANGE AGENT Ancillary Procedure [facility] Cardiology [facility] [facility] 8th [place] [address] [place] [address] SVT (supraventricular tachycardia) ([facility]) 04/25/2024 11:45 AM INTERCHANGE AGENT Office Visit [facility] Cardiology 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; RBBB; Hypertensive left ventricular hypertrophy, without heart failure; LVH (left ventricular hypertrophy); Bilateral lower extremity edema 03/22/2024 Telephone [facility] Hematology [facility] Floor [address] [place] [address] Adilene Gonsalves RN from Last [...] 2 Active apixaban (ELIQUIS) 5 mg tabletIndications :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 Take 1 [...] beats 03/31/2016 Overview (07/21/2016): 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 contraction 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 1 06/01/2015 [...] on file Legal Sex Male 4:19 AM INTERCHANGE AGENT Gender Identity Male 01/12/2020 7:43 PM CDT Sexual Orientation Straight 01/12/2020 7: 43 PM CDT Last Filed Vital Signs Vital Sign Reading Time Taken Comments Blood Pressure 142/82 04/25/2024 11:22 AM INTERCHANGE AGENT Pulse 77 04/25/2024 11:22 AM INTERCHANGE AGENT Temperature 36.3 C (97.4 F) 08/24/2023 9:29 AM CDT Respiratory Rate 18 08/24/2023 9:29 AM CDT Oxygen Saturation 97% 04/25/2024 11:22 AM INTERCHANGE AGENT Inhaled Oxygen Concentration - - Weight 97.8 kg (215 lb 9.6 oz) 04/25/2024 11:22 AM INTERCHANGE AGENT Height 185.4 cm (6' 1 ) 04/25/2024 11:22 AM INTERCHANGE AGENT Body Mass Index 28.44 04/25/2024 11:22 AM INTERCHANGE AGENT Plan of Treatment Not on file Procedures Procedure Name Priority Date/Time Associated Diagnosis Comments EXTENDED/ASSISTED HOLTER PATCH (8 DAYS UP TO 15 DAYS) Routine 04/25/2024 12:44 PM INTERCHANGE AGENT SVT (supraventricular tachycardia) (HCC) ECG 12-LEAD Routine 04/25/2024 11:28 AM INTERCHANGE AGENT SVT (supraventricular tachycardia) (HCC) from Last 3 Months Results * Extended/Jail Holter Patch (8 days up to 15 days) (04/25/2024 12:44 PM INTERCHANGE AGENT) Anatomical Region Laterality Modality Electrocardiogra phy 04/25/2024 12:4 4 PM INTERCHANGE AGENT Narrative 05/23/2024 7:[address] [facility] Cardiac [place] [address] HOLTER MONITOR Patient Name: NADEEM AMAYASadaf : 1945 (78y 5m) Gender: M Study Date: 04/25/2024 12:44:17 PM Ht(Inch): Wt(Lb): BSA: Tech: Location: [facility] Order Provider: ALBERTO MOFFETT BMI: Ref Provider: ALBERTO MOFFETT PROCEDURES: Holter Report: EXTENDED/ASSISTED HOLTER PATCH (8 DAYS UP TO 15 DAYS) [CAR80]. Enrollment Period: 04/25/2024-05/09/2024. Monitor Number: [id number]. Patient Instructions: Patient picked up device from office and understand directions and use of the equipment. Location: [facility]. INDICATIONS: I47.10 Supraventricular tachycardia, unspecified. FINDINGS: Holter Data: Min Rate: 48 BPM Min Rate Timestamp: 2024-05-09 04:32:31 Max Rate: 253 BPM Max Rate Timestamp: 2024-05-07 11:48:36 Mean Rate: 79 BPM Singlets (PACs): 759502 events Couplets (PACs): 49286 events Total (SVE): 843236 events Singlets (PVCs): 1335 events Couplets (PVCs): 2 events Total (VE): 1350 events Total beats: [id number] Protocol: Recording Duration (Actual): 5570859.12 Total QRS: 0797834 SUMMARY: *The predominant rhythm was sinus with [...] PDF report can be found in the [facility] patient chart. Electronically Signed By: Kenny Stern Jr., M.D. 05/23/2024 6:10:09 PM INTERCHANGE AGENT Electronically Signed By: Kenny Stern Jr., M.D. 05/23/2024 6:10:09 PM INTERCHANGE AGENT Procedure Note Kenny Stern MD PhD - 05/23/2024 [facility] Cardiac [place] [address] [place] [address] HOLTER MONITOR Patient Name: NADEEM AMAYA W : 1945 (78y 5m) Gender: M Study Date: 04/25/2024 12:44:17 PM Ht(Inch): Wt(Lb): BSA: Tech: Location: [facility] Order Provider: ALBERTO MOFFETT BMI: Ref Provider: ALBERTO MOFFETT PROCEDURES: Holter Report: EXTENDED/ASSISTED HOLTER PATCH (8 DAYS UP TO 15 DAYS)[[id number]]. Enrollment Period: 04/25/2024-05/09/2024. Monitor Number: [id number]. Patient Instructions: Patient picked up device from office and understanddirections and use of the equipment. Location: [facility]. INDICATIONS: I47.10 Supraventricular tachycardia, unspecified. FINDINGS: Holter Data: Min Rate: 48 BPM Min Rate Timestamp: 2024-05-09 04:32:31 Max Rate: 253 BPM Max Rate Timestamp: 2024-05-07 11:48:36 Mean Rate: 79 BPM Singlets (PACs): 519010 events Couplets (PACs): 50126 events Total (SVE): 236858 events Singlets (PVCs): 1335 events Couplets (PVCs): 2 events Total (VE): 1350 events Total beats: 9084862 Protocol: Recording Duration (Actual): 9225849.12 Total QRS: 4167704 SUMMARY: *The predominant rhythm was sinus with [...] 170 bpm, 04/27 10:55:48, and the Longest [id number] beats, 04/27 10:55:48. *There were 221,618 SVE [...] PDF report can be found in the [facility] patient chart. Electronically Signed By: Kenny Stern Jr., M.D. 05/23/2024 6:10:09 PM INTERCHANGE AGENT Electronically Signed By: eKnny Stern Jr., M.D. 05/23/2024 6:10:09 PM INTERCHANGE AGENT us Alberto Moffett MD CV CARDIAC SERVICES PRO CEDURES Final Result * ECG 12 lead (04/25/2024 11:28 AM INTERCHANGE AGENT) us Alberto Moffett MD ECG ORDERABLES Final R esult from Last 3 Months Insurance [employer] MEDICARE FORMERLY [facility] MEDICARE FORMERLY [facility], [facility] MEDICARE Care Teams Element Winding Machine Tender Relationship Specialty Start Date End Date Timothy Banks MD PCP - General 07/08/16
--- OUTSIDE RECORDS SUMMARY | 2024-06-03 16:35 | XMS_ITS | Clinical Summary ---
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 8th [place] [address] [place] [address] SVT (supraventricular tachycardia) ([facility]) 04/25/2024 11:45 AM HEAD CONTROL CLERK Office Visit [facility] Cardiology [address] [place] [address] 8th [place] [address] [place] [address] Alberto Moffett MD SVT (supraventricular tachycardia) ([facility]) 03/27/2024 3:15 PM HEAD CONTROL CLERK Office Visit [facility] Cardiology [address] [facility] [address] [place] [address] Jayro Kaminski MD SVT (supraventricular tachycardia) ([facility]) (Primary Dx); QAMAR (obstructive sleep apnea); 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 Heart disease 2016 Chronic kidney disease 2010 Sleep apnea 2018 Family History Medical History Relation Name Comments Alzheimer's disease Brother Emmett Amaya Alzheimer's disease Father Jeffrey Amaya Alzheimer's disease Mother Daisy Amaya Alzheimer's disease Sister Leslie Dewey Relation Name Status Comments Brother Emmett Amaay Father Jeffrey Amaya Mother Daisy Amaya Sister Leslie Dewey Social History Tobacco Use Types Packs/Day Years Used Date Smoking Tobacco: Never Smokeless Tobacco: Never Alcohol Use Standard Drinks/Week Comments Yes 0 (1 standard drink = 0.6 oz pur e alcohol) Sex and Gender Information Value Date Recorded Sex Assigned at Not on file Legal Sex Male 4:19 AM HEAD CONTROL CLERK Gender Identity Male 01/12/2020 7:43 PM CDT Sexual Orientation Straight 01/12/2020 7: 43 PM CDT Obstetrics History Last Filed Vital Signs Vital Sign Reading Time Taken Comments Blood Pressure 142/82 04/25/2024 11:22 AM HEAD CONTROL CLERK Pulse 77 04/25/2024 11:22 AM HEAD CONTROL CLERK Temperature 36.3 C (97.4 F) 08/24/2023 9:29 AM CDT Respiratory Rate 18 08/24/2023 9:29 AM CDT Oxygen Saturation 97% 04/25/2024 11:22 AM HEAD CONTROL CLERK Inhaled Oxygen Concentration - - Weight 97.8 kg (215 lb 9.6 oz) 04/25/2024 11:22 AM HEAD CONTROL CLERK Height 185.4 cm (6' 1 ) 04/25/2024 11:22 AM HEAD CONTROL CLERK Body Mass Index 28.44 04/25/2024 11:22 AM HEAD CONTROL CLERK Plan of Treatment Health Maintenance Due Date [...] Procedure Name Priority Date/Time Associated Diagnosis Comments EXTENDED/CORRECTION HOLTER PATCH (8 DAYS UP TO 15 DAYS) Routine 04/25/2024 12:44 PM HEAD CONTROL CLERK SVT (supraventricular tachycardia) (HCC) ECG 12-LEAD Routine 04/25/2024 11:28 AM HEAD CONTROL CLERK SVT (supraventricular tachycardia) (HCC) from Last 3 Months Results * Extended/Senior Living Holter Patch (8 days up to 15 days) (04/25/2024 12:44 PM HEAD CONTROL CLERK) Anatomical Region Laterality Modality Electrocardiogra phy 04/25/2024 12:4 4 PM HEAD CONTROL CLERK Narrative 05/23/2024 7:12 PM HEAD CONTROL CLERK [facility] Cardiac Diagnostic [place] [address] [place] [address] HOLTER MONITOR Patient Name: NADEEM AMAYA W : 1945 (78y 5m) Gender: M Study Date: 04/25/2024 12:44:17 PM Ht(Inch): Wt(Lb): BSA: Tech: Location: [facility] Order Provider: ALBERTO MOFFETT BMI: Ref Provider: ALBERTO MOFFETT PROCEDURES: Holter Report: EXTENDED/CORRECTION HOLTER PATCH (8 DAYS UP TO 15 DAYS) [CAR80]. Enrollment Period: 04/25/2024-05/09/2024. Monitor Number: [id number]. Patient Instructions: Patient picked up device from office and understand directions and use of the equipment. Location: [facility]. INDICATIONS: I47.10 Supraventricular tachycardia, unspecified. FINDINGS: Holter Data: Min Rate: 48 BPM Min Rate Timestamp: 2024-05-09 04:32:31 Max Rate: 253 BPM Max Rate Timestamp: 2024-05-07 11:48:36 Mean Rate: 79 BPM Singlets (PACs): 469820 events Couplets (PACs): 35773 events Total (SVE): 621001 events Singlets (PVCs): 1335 events Couplets (PVCs): 2 events Total (VE): 1350 events Total beats: [id number] Protocol: Recording Duration (Actual): 6617893.12 Total QRS: 4417964 SUMMARY: *The predominant rhythm was sinus with [...] PDF report can be found in the [facility] patient chart. Electronically Signed By: Kenny Stern Jr., M.D. 05/23/2024 6:10:09 PM HEAD CONTROL CLERK Electronically Signed By: Kenny Stern Jr., M.D. 05/23/2024 6:10:09 PM HEAD CONTROL CLERK Procedure Note Kenny Stern MD PhD - 05/23/2024 [facility] Cardiac Diagnostic [place] [address] [place] [address] HOLTER MONITOR Patient Name: NADEEM AMAYA W : 1945 (78y 5m) Gender: M Study Date: 04/25/2024 12:44:17 PM Ht(Inch): Wt(Lb): BSA: Tech: Location: [facility] Order Provider: ALBERTO MOFFETT BMI: Ref Provider: ALBERTO MOFFETT PROCEDURES: Holter Report: EXTENDED/CORRECTION HOLTER PATCH (8 DAYS UP TO 15 DAYS)[CAR80]. Enrollment Period: 04/25/2024-05/09/2024. Monitor Number: [id number]. Patient Instructions: Patient picked up device from office and understanddirections and use of the equipment. Location: [facility]. INDICATIONS: I47.10 Supraventricular tachycardia, unspecified. FINDINGS: Holter Data: Min Rate: 48 BPM Min Rate Timestamp: 2024-05-09 04:32:31 Max Rate: 253 BPM Max Rate Timestamp: 2024-05-07 11:48:36 Mean Rate: 79 BPM Singlets (PACs): 774111 events Couplets (PACs): 48991 events Total (SVE): 428044 events Singlets (PVCs): 1335 events Couplets (PVCs): 2 events Total (VE): 1350 events Total beats: 4452611 Protocol: Recording Duration (Actual): 7911349.12 Total QRS: 4432341 SUMMARY: *The predominant rhythm was sinus with [...] 170 bpm, 04/27 10:55:48, and the Longest [id number] beats, 04/27 10:55:48. *There were 221,618 SVE [...] 170 bpm, 04/27 10:55:48, and the Longest [id number] beats, 04/27 10:55:48. *There were 221,618 SVE beats with a burden of 14 %. There were 3,990occurrences of Supraventricular Tachycardia with the Fastest episode 253 bpm, 04/2810:48:32, and the Longest episode 9m 57.8s, 04/26 04:27:10. *There were 0 Patient Triggers. 2. Agree with findings from [employer] document. 3. The PDF report can be found in the [facility] patient chart. Electronically Signed By: Kenny Stern Jr., M.D. 05/23/2024 6:10:09 PM HEAD CONTROL CLERK Electronically Signed By: Kenny Stern Jr., M.D. 05/23/2024 6:10:09 PM HEAD CONTROL CLERK us Alberto Moffett MD CV CARDIAC SERVICES PRO CEDURES Final Result * ECG 12 lead (04/25/2024 11:28 AM HEAD CONTROL CLERK) us Alberto Moffett MD ECG ORDERABLES Final R esult from Last 3 Months Insurance [id number] [place] [address] [employer] MED[employer]ARE [address] [id number] [facility] MEDICARE [address] [place] [address] [facility] MEDICARE Care Teams Dental Hygienist Mobile Coordinator Relationship Specialty Start Date End Date Timothy Banks MD PCP - General 07/08/16
--- OUTSIDE RECORDS SUMMARY | 2024-06-03 16:35 | XMS_ITS | Encounter Summary ---
Author Organization [facility] Address [address] [facility] [place] [address] Care Team Providers Care Drill Runner Helper Name Role Phone Timothy Banks MD Primary Care Provider [phone] Cindy Garcia MD Unavailable Encounter Details Date Type Department Care Team (Late st Contact Info) Description 09/28/2023 Lab Requisition [facility] - DermPath Lab [address] [place] [phone] Timothy Banks [place] [address] [place] [address] Social History Tobacco Use Types Packs/Day Years Used Date Smoking Tobacco: Never Assessed Sex and Gender Information Value Date Recorded Sex Assigned at Male 03/05/2024 8:04 AM SAW MAN Gender Identity Male 03/05/2024 8:04 AM SAW MAN Sexual Orientation Straight 03/05/2024 8: 04 AM SAW MAN documented as of this encounter Plan of Treatment Upcoming Encounters Date Type Department Care Team (Late Contact Info) Description 06/17/2024 9:20 AM CDT Appointment [facility] [address] [place] [address] 06/17/2024 9:40 AM CDT Office Visit [facility] - Hematology/Oncology [address] [place] [phone] Stephanie Connolly APRN-ROPE MACHINE SETTER [address] [place] [address] 06/18/2024 9:20 AM CDT Appointment [facility] [address] [place] [address] 06/19/2024 9:00 AM CDT Appointment [facility] [address] [place] [address] 06/20/2024 9:10 AM CDT Appointment [facility] [address] [place] [address] 06/21/2024 9:10 AM CDT Appointment [facility] [address] [place] [address] documented as of this encounter Procedures Procedure Name Priority Date/Time Associated Diagnosis Comments DERMATOPATHOLOGY Routine 09/27/2023 12:0 0 AM CDT documented in this encounter Results * DERMATOPATHOLOGY (09/27/2023 12:00 AM CDT) Case Report Dermatopathology Report Case: [id number] Authorizing Provider: Timothy Banks MD Collected: 09/27/2023 12:00 AM Ordering Location: [facility] - Received: 09/28/2023 10:46 AM [...] specimen consists of a shave biopsy measuring 40x74s1 mm. Jar 0. Specimen B: Received is [...] determined by the Dermatopathology Laboratory at [facility], directed by Dr. Randall Pringle. These tests need not be, and therefore are not, approved by the [place] Food and Drug Administration. The tests are used for clinical purposes. Billing Codes Specimen Charges Stain Charges 76287 67750 1 1 4 12:35 PM CDT DERMATOPATHOLOGY LABORATORY Embedded Images 4 12:35 PM CDT DERMATOPATHOLOGY LABORATORY Pathology/Cytology TISSUE SPECIMEN FROM SKIN / Unknown 09/27/2023 09/28/2023 10:46 AM CDT Miscellaneous samples (specimen) TISSUE SPECIMEN FROM SKIN / Unknown 09/27/2023 09/28/2023 10:46 AM CDT Timothy Banks MD LAB - PATHOLOGY/CYTO LOGY ORDERABLES DERMATOPATHOLOGY LABORATORY [facility] - Department of Dermatology [facility] Medicine [address] [facility], 3rd Floor [address] [phone] documented in this encounter Visit Diagnoses Not on filedocumented in this encounter Care Teams Drill Runner Helper Relationship Specialty Start Date End Date Timothy Banks MD [address] [place] [phone] PCP - General 10/19/18 Cindy Garcia MD [address] [place] [address] Agricultural Research Engineer/Oncologis t Hematology and Oncology 03/24/24 documented as of this encounter
--- OUTSIDE RECORDS SUMMARY | 2024-06-03 16:35 | XMS_ITS | Clinical Summary ---
Author Organization [facility] Meka phil Sanam Address [address] [place] [address] Care Team Providers Care General Operations Agent Name Role Phone Timothy Banks MD Primary Care Provider [phone] Allergies Active Allergy Reactions Criticality Noted Date [...] Encounters Date Type Department Care Team Description 06/03/2024 Abstract [facility] Oncology and Hematology - [place] [address] [place] [address] Frank Singh MD 06/03/2024 Orders Only [facility] Oncology and Hematology - [place] [address] [place] [address] Frank Singh MD 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) 05/28/2024 External Device Data STL ABSTRACTION Provider, Abstract 05/28/2024 Orders Only [facility] Oncology and Hematology - [place] [address] [place] [phone] Frank Singh MD 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) 05/27/2024 Abstract [facility] Oncology and Hematology - Lula [address] Frank Singh MD 05/27/2024 Orders Only [facility] Oncology and Hematology - [place] [address] Frank Singh MD 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) 05/21/2024 Orders Only [facility] Oncology and Hematology - [place] [address] Frank Singh MD 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) 05/20/2024 Orders Only [facility] Oncology and Hematology - [place] [address] Frank Singh MD 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) 05/14/2024 Orders Only [facility] Oncology and Hematology - [place] [address] Frank Singh MD 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) 05/13/2024 Orders Only [facility] Oncology and Hematology - [place] [address] Frank Singh MD 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) 05/07/2024 Orders Only [facility] Oncology and Hematology - [place] [address] Frank Singh MD 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) 05/06/2024 Orders Only [facility] Oncology and Hematology - [place] [address] [place] [address] Frank Singh MD 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) 05/03/2024 Abstract [facility] Oncology and Hematology - [address] [place] [address] Frank Singh MD 05/02/2024 External Device Data STL ABSTRACTION Provider, Abstract 05/01/2024 External Device Data STL ABSTRACTION Provider, Abstract 04/30/2024 External Device Data STL ABSTRACTION Provider, Abstract 04/30/2024 Orders Only [facility] Oncology and Hematology - [place] [address] [place] [address] Frank Singh MD 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) 04/29/2024 Orders Only [facility] Oncology and Hematology - [place] [address] [place] [address] Frank Singh MD 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) 04/25/2024 Orders Only [facility] Oncology and Hematology - [place] [address] [place] [address] Frank Singh MD 04/23/2024 External Device Data STL ABSTRACTION Provider, Abstract 04/23/2024 Orders Only [facility] Oncology and Hematology - [place] [address] [place] [address] Frank Singh MD 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) 04/22/2024 Orders Only [facility] Oncology and Hematology - [place] [address] [place] [address] Frank Singh MD 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) 04/17/2024 Orders Only [facility] Oncology and Hematology - [place] [address] [place] [address] Frank Singh MD 04/16/2024 Orders Only [facility] Oncology and Hematology - [place] [address] [place] [address] Frank Singh MD 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) 04/15/2024 Orders Only [facility] Oncology and Hematology - [place] [address] [place] [address] Frank Singh MD 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) 04/09/2024 Orders Only [facility] Oncology and Hematology - [place] [address] [place] [address] Frank Singh MD 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) 04/08/2024 Orders Only [facility] Oncology and Hematology - [place] [address] [place] [address] Frank Singh MD 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) 04/05/2024 Orders Only [facility] Oncology and Hematology - [place] [address] [place] [address] Frank Singh MD 04/02/2024 Orders Only [facility] Oncology and Hematology - [place] [address] [place] [address] Frank Singh MD 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) 04/01/2024 Orders Only [facility] Oncology and Hematology - [place] [address] [place] [address] Frank Singh MD 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) 03/28/2024 Orders Only [facility] Oncology and Hematology - [place] [address] [place] [address] Frank Singh MD 03/28/2024 Nurse Triage [facility] Oncology and Hematology - [place] [address] [place] [address] Frank Singh MD 03/26/2024 Orders Only [facility] Oncology and Hematology - [address] [place] [address] Frank Singh MD 03/25/2024 Telephone [facility] Oncology and Hematology - [place] [address] [place] [address] Frank Singh MD Lab Results 03/25/2024 Orders Only [facility] Oncology and Hematology - [address] [place] [address] Frank Singh MD 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) 03/22/2024 Telephone [facility] Oncology and Hematology - [place] [address] [place] [address] Frank Singh MD Chemotherapy 03/22/2024 Telephone [facility] Oncology and Hematology - [place] [address] [place] [phone] Frank Singh MD error from Last 3 Months Family History Medical [...] Sex Assigned at Male 04/05/2024 3:07 PM INFORMATION SECURITY Legal Sex Male 10:53 AM CDT Gender Identity Male 04/05/2024 3:07 PM INFORMATION SECURITY Sexual Orientation Not on file Last Filed [...] 2023-2 5 season) 2023 04/14/2021 [place] Preventative Visit/Annual Wellness Visit 04/10/2024 DTAP/TDAP/TD VACCINES (2 - T d or Tdap) 09/17/2028 09/17/2018 PNEUMOCOCCAL VACCINE 65+ YEARS Completed 09/17/2018 , 08/27/2015 Procedures Procedure Name Priority Date/Time Associated Diagnosis Comments CBC WITH DIFFERENTIAL Routine 06/03/2024 4:15 PM INFORMATION SECURITY CBC WITH DIFFERENTIAL Routine 05/27/2024 12:08 PM INFORMATION SECURITY BASIC METABOLIC PANEL Routine 05/06/2024 12:55 PM INFORMATION SECURITY BASIC METABOLIC PANEL Routine 05/02/2024 1:34 PM INFORMATION SECURITY BASIC METABOLIC PANEL Routine 04/29/2024 4:14 PM INFORMATION SECURITY BASIC METABOLIC PANEL Routine 04/25/2024 4:21 PM INFORMATION SECURITY BASIC METABOLIC PANEL Routine 04/08/2024 1:56 PM INFORMATION SECURITY BASIC METABOLIC PANEL Routine 04/04/2024 3:39 PM INFORMATION SECURITY CBC WITH DIFFERENTIAL Routine 04/04/2024 1:55 PM INFORMATION SECURITY BASIC METABOLIC PANEL Routine 04/01/2024 10:11 AM INFORMATION SECURITY CBC MIXED CELL DIFFERENTIAL Routine 04/01/2024 9:00 AM INFORMATION SECURITY BASIC METABOLIC PANEL Routine 03/28/2024 1:31 PM INFORMATION SECURITY CBC WITH DIFFERENTIAL Routine 03/28/2024 1:23 PM INFORMATION SECURITY BASIC METABOLIC PANEL Routine 03/25/2024 1:24 PM INFORMATION SECURITY CBC WITH DIFFERENTIAL Routine 03/25/2024 1:23 PM INFORMATION SECURITY CBC WITH DIFFERENTIAL Routine 03/25/2024 10:28 AM INFORMATION SECURITY from Last 3 Months Results * CBC WITH DIFFERENTIAL (06/03/2024 4:15 PM INFORMATION SECURITY) Only the most recent of6 resultswithin the time period is included. Blood us Frank Singh MD HEMATOLOGY ORDERABLES Final Res ult * BASIC METABOLIC PANEL (05/06/2024 12:55 PM INFORMATION SECURITY) Only the most recent of9 resultswithin the time period is included. Blood us Frank Singh MD CHEMISTRY ORDERABLES Final Resu lt * CBC MIXED CELL DIFFERENTIAL (04/01/2024 9:00 AM INFORMATION SECURITY) Blood us Frank Singh MD HEMATOLOGY ORDERABLES Final Res ult from Last 3 Months Insurance [facility] [id number] [facility] Care Teams General Operations Agent Relationship Specialty Start Date End Date Timothy Banks MD [address] [place] [address] PCP - General Family Practice 02/01/24
--- OUTSIDE RECORDS SUMMARY | 2024-06-03 16:35 | XMS_ITS | Encounter Summary ---
Author Organization [facility] Goowy [facility] Address [address] [place] [address] Care Team Providers Care Dryer Operator Name Role Phone Timothy Banks MD Primary Care Provider Encounter Details Date Type Department Care Team (Late st Contact Info) Description 06/03/2024 Abstract [facility] Oncology and Hematology - [place] [address] [facility] [address] [place] [address] Frank Singh MD [address] [facility] [address] [place] [address] Social History Tobacco Use Types Packs/Day Years Used Date Smoking Tobacco: Never Smokeless Tobacco: Never Alcohol Use Standard Drinks/Week Comments Yes 0 (1 standard drink = 0.6 oz pur e alcohol) Very Ocasionally Sex and Gender Information Value Date Recorded Sex Assigned at Male 04/05/2024 3:07 PM TOBACCO CLOTH RECLAIMER Legal Sex Male 10:53 AM CDT Gender Identity Male 04/05/2024 3:07 PM TOBACCO CLOTH RECLAIMER Sexual Orientation Not on file documented as of this encounter Plan of Treatment Not on file documented as of this encounter Visit Diagnoses Not on filedocumented in this encounter Care Teams Dryer Operator Relationship Specialty Start Date End Date Timothy Banks MD [address] [place] [address] PCP - General Family Practice 02/01/24 documented as of this encounter
--- OUTSIDE RECORDS SUMMARY | 2024-06-03 16:35 | XMS_ITS | Clinical Summary ---
Author Organization [facility]a [facility] Address [address] [place] [address] Phone Care Team Providers Care Talent Development Coordinator Name Role Phone Timothy Banks MD Primary Care Provider [phone] Allergies No known active allergies Medications Medication [...] Last Done Comments COVID-19 Vaccine (2 - 4-2 5 season) 2023 04/14/2021 Influenza Vaccine (#1) 2023 , 01/09/2020, 01/25/2019, Additional history exists Pneumococcal PPSV23/PCV13 65 + Years / High and Highest Risk Completed 09/17/2018, 08/27/2015 Pneumococcal PPSV23/PCV13 65 + Years / Low and Medium Risk Completed 09/17/2018, 08/27/2015 Care Teams Talent Development Coordinator Relationship Specialty Start Date End Date Timothy Banks MD [address] [place] [address] PCP - General Family Medicine 11/14/18
--- OUTSIDE RECORDS SUMMARY | 2024-06-03 16:35 | XMS_ITS | Encounter Summary ---
Author Organization [facility] Address [address] [place] [address] Phone Care Team Providers Care Wire Spring Relay Adjuster Name Role Phone Timothy Banks MD Primary Care Provider Encounter Details Date Type Department Care Team (Late st Contact Info) Description 01/25/2024 Telephone [facility] Cardiology [address] [facility] [address] [place] [address] [place] [address] Alberto Gallegos MD [address] [place] [address] Social History Tobacco Use Types Packs/Day Years Used Date Smoking Tobacco: Never Smokeless Tobacco: Never Alcohol Use Standard Drinks/Week Comments Yes 0 (1 standard drink = 0.6 oz pur e alcohol) Sex and Gender Information Value Date Recorded Sex Assigned at Not on file Legal Sex Male 4:19 AM OFFICE ASSISTANCE Gender Identity Male 01/12/2020 7:43 PM CDT Sexual Orientation Straight 01/12/2020 7: 43 PM CDT documented as of this encounter Plan of Treatment Not on file documented as of this encounter Visit Diagnoses Not on filedocumented in this encounter Care Teams Wire Spring Relay Adjuster Relationship Specialty Start Date End Date Timothy Banks MD PCP - General 07/08/16 documented as of this encounter
--- OUTSIDE RECORDS SUMMARY | 2024-06-03 16:35 | XMS_ITS | Clinical Summary ---
Author Organization [facility] Address [address] [place] [address] Care Team Providers Care Accounts Payable Bookkeeper Name Role Phone Timothy Banks MD Primary Care Provider [phone] Cindy Garcia MD Unavailable Source Comments [facility],non-owned Affiliates and Associated Physician Practices is amultiple site organization consisting of ambulatory clinics and hospital sitesin [place], [place], [place] and [place]. This disclosure is being madepursuant to the Care Everywhere program and may not contain all information available regarding this patient. Last updated 17.[facility] Allergies Active Allergy Reactions Criticality [...] Date Type Department Care Team Description 05/30/2024 11:00 AM MUSIC AUTOGRAPHER Office Visit [facility] - Hematology/Oncolog y [address] [place] [phone] Cindy Garcia MD 05/30/2024 10:20 AM MUSIC AUTOGRAPHER - 05/30/2024 11:59 PM MUSIC AUTOGRAPHER Hospital Encounter [facility] [address] [place] [phone] Cindy Garcia MD Discharge Disposition: Home or Self Care 05/30/2024 Travel 05/28/2024 Orders Only [facility] - Hematology/Oncolog y [address] [place] [phone] Nikole Chou RN Acute myeloid leuk w multilin dysplasia, 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) 05/22/2024 8:40 AM MUSIC AUTOGRAPHER - 05/22/2024 11:59 PM MUSIC AUTOGRAPHER Hospital Encounter [facility] [address] [place] [phone] Timothy Banks MD Discharge Disposition: Home or Self Care 05/22/2024 Travel 05/21/2024 9:00 AM MUSIC AUTOGRAPHER - 05/21/2024 11:59 PM MUSIC AUTOGRAPHER Hospital Encounter [facility] [address] [place] [phone] Timothy Banks MD Discharge Disposition: Home or Self Care 05/20/2024 9:30 AM MUSIC AUTOGRAPHER - 05/20/2024 11:59 PM MUSIC AUTOGRAPHER Hospital Encounter [facility] [address] [place] [phone] Cindy Garcia MD Discharge Disposition: Home or Self Care 05/20/2024 Travel 05/17/2024 8:58 AM MUSIC AUTOGRAPHER - 05/17/2024 11:59 PM MUSIC AUTOGRAPHER Hospital Encounter [facility] [address] [place] [phone] Cindy Garcia MD Discharge Disposition: Home or Self Care 05/16/2024 9:40 AM MUSIC AUTOGRAPHER Office Visit [facility] - Hematology/Oncolog y [address] [place] [phone] Stephanie Connolly APRN-CNP Acute myeloid leuk w multilin dysplasia, 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); Chronic kidney disease, unspecified CKD stage; Neutropenia, unspecified type (HCC) 05/16/2024 8:49 AM MUSIC AUTOGRAPHER - 05/16/2024 11:59 PM MUSIC AUTOGRAPHER Hospital Encounter [facility] [address] [place] [phone] Cindy Garcia MD Discharge Disposition: Home or Self Care 05/16/2024 Telephone [facility] - Hematology/Oncolog y [address] [place] [phone] Stephanie Connolly APRN-CNP Follow-up (Error/) 05/16/2024 Travel 05/15/2024 12:32 PM MUSIC AUTOGRAPHER - 05/15/2024 11:59 PM MUSIC AUTOGRAPHER Hospital Encounter [facility] [address] [place] [phone] Cindy Garcia MD Kunkle, Kelly, APRN-CNP Discharge Disposition: Home or Self Care 05/15/2024 Travel 05/13/2024 Refill [facility] - Hematology/Oncolog y [address] [place] [phone] Cindy Garcia MD MEDICATION REFILL 05/02/2024 1:30 PM MUSIC AUTOGRAPHER Video Visit [facility] - Hematology/Oncolog y [address] [place] [phone] Cindy Garcia MD 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) 05/01/2024 Orders Only [facility] - Hematology/Oncolog y [address] [place] [address] Cindy Garcia MD 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) 04/22/2024 12:45 PM MUSIC AUTOGRAPHER - 04/22/2024 11:59 PM MUSIC AUTOGRAPHER Hospital Encounter [facility] [address] [place] [address] Cindy Garcia MD Discharge Disposition: Home or Self Care 04/22/2024 9:38 AM MUSIC AUTOGRAPHER - 04/22/2024 12:44 PM MUSIC AUTOGRAPHER Hospital Encounter [facility] [address] [place] [address] Unknown, Provider Discharge Disposition: Home or Self Care 04/22/2024 Travel 04/22/2024 Refill [facility] - Hematology/Oncolog y [address] [place] [phone] Cindy Garcia MD Refill Request 04/22/2024 Orders Only [facility] - Hematology/Oncolog y [address] [place] [phone] Tg Amezcua, RN 04/22/2024 Orders Only [facility] - Hematology/Oncolog y [address] [place] [phone] Tg Amezcua, RN 04/22/2024 Telephone [facility] - Hematology/Oncolog y [address] [place] [phone] Nikole Chou, RN Appointment 04/19/2024 9:58 AM MUSIC AUTOGRAPHER - 04/19/2024 11:59 PM MUSIC AUTOGRAPHER Hospital Encounter [facility] [address] [place] [address] Unknown, Provider Discharge Disposition: Home or Self Care 04/19/2024 Travel 04/18/2024 10:30 AM MUSIC AUTOGRAPHER Office Visit [facility] - Hematology/Oncolog y [address] [place] [phone] Cindy Garcia MD 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) 04/18/2024 9:32 AM MUSIC AUTOGRAPHER - 04/18/2024 11:59 PM MUSIC AUTOGRAPHER Hospital Encounter [facility] [address] [place] [phone] Unknown, Provider Discharge Disposition: Home or Self Care 04/18/2024 Travel 04/17/2024 10:32 AM MUSIC AUTOGRAPHER - 04/17/2024 11:59 PM MUSIC AUTOGRAPHER Hospital Encounter [facility] [address] [place] [phone] Timothy Banks MD Discharge Disposition: Home or Self Care 04/16/2024 10:00 AM MUSIC AUTOGRAPHER - 04/16/2024 11:59 PM MUSIC AUTOGRAPHER Hospital Encounter [facility] [address] [place] [phone] Unknown, Provider Discharge Disposition: Home or Self Care 04/15/2024 Orders Only [facility] [address] [place] [phone] Cindy Garcia MD 04/11/2024 5:49 AM MUSIC AUTOGRAPHER - 04/11/2024 11:05 AM MUSIC AUTOGRAPHER Hospital Encounter [facility] [address] [place] [address] Cindy Garcia MD Inter[facility] Radiology Discharge Disposition: Home or Self Care 04/10/2024 Orders Only [facility] [address] [place] [phone] Cindy Garcia MD Chronic kidney disease, unspecified CKD stage 04/05/2024 Orders Only [facility] [address] [place] [phone] Cindy Garcia MD 04/04/2024 Telephone [facility] - Hematology/Oncolog y [address] [place] [phone] Cindy Garcia MD Medication Prior Auth Request 04/01/2024 3:09 PM MUSIC AUTOGRAPHER - 04/01/2024 11:59 PM MUSIC AUTOGRAPHER Hospital Encounter [facility] [address] [facility] [place] [address] Discharge Disposition: Home or Self Care 04/01/2024 2:00 PM MUSIC AUTOGRAPHER Office Visit [facility] - Hematology/Oncolog y [address] [place] [phone] Cindy Garcia MD 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) 04/01/2024 Orders Only [facility] [address] [place] [phone] Cindy Garcia MD Tumor lysis syndrome (HCC) 04/01/2024 Travel 04/01/2024 Orders Only [facility] [address] [place] [phone] Cindy Garcia MD Acute myeloid leukemia 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) 03/25/2024 Orders Only [facility] [address] [place] [phone] Ekta Ferro, CRIMINALIST-DIRECTOR MARKET RESEARCH 03/25/2024 Orders Only [facility] - Hematology/Oncolog y [address] [place] [phone] Cindy Garcia MD Acute myeloid leuk w multilin dysplasia, 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) 03/25/2024 Telephone [facility] at [facility] [address] [place] [phone] Adamaris Jesus, linking machine operator 03/14/2024 [facility] [address] [place] [phone] Cindy Garcia MD Medication Monitoring (VENCLEXTA 100 MG TABLET/) 03/14/2024 Telephone [facility] - Hematology/Oncolog y [address] [place] [phone] Cindy Garcia MD Medication Prior Auth Request 03/14/2024 Telephone [facility] - Hematology/Oncolog y [address] [place] [phone] Cindy Garcia MD Medication Prior Auth Request 03/14/2024 Telephone [facility] - Hematology/Oncolog y [address] [place] [phone] Cindy Garcia MD Medication Prior Auth Request 03/13/2024 7:14 PM MUSIC AUTOGRAPHER - 03/23/2024 1:56 PM MUSIC AUTOGRAPHER Hospital Encounter [facility] AC[facility] [address] [place] [address] Cindy Garcia MD Kumar, Ashwath, MD Schrader, MD Jodi Edwards, Josh Chavez MD Internal Medicine Discharge Disposition: Home or Self Care 03/13/2024 Travel 03/13/2024 Telephone [facility] [address] [place] [phone] Cindy Garcia MD Medication Prior Auth Request 03/13/2024 Orders Only [facility] [address] [place] [address] Sammie Hartman, PharmD 03/13/2024 Orders Only [facility] [address] [place] [phone] Cindy Garcia MD 03/04/2024 3:35 PM MUSIC AUTOGRAPHER - 03/04/2024 11:59 PM MUSIC AUTOGRAPHER Hospital Encounter [facility] [address] [place] [address], [address] [place] [address] Discharge Disposition: Home or Self Care 03/04/2024 2:00 PM MUSIC AUTOGRAPHER Office Visit [facility] - Hematology/Oncolog y [address] [place] [phone] Cindy Garcia MD MDS (myelodysplastic syndrome) (HCC) (Primary Dx) 03/04/2024 Travel 03/04/2024 Orders Only [facility] [address] [place] [phone] Cindy Garcia MD MDS (myelodysplastic syndrome) (HCC) from Last 3 Months Social History Tobacco [...] and heating? Not hard at all 03/13/2024 [facility] - Occupational Stress [...] Sex Assigned at Male 03/05/2024 8:04 AM MUSIC AUTOGRAPHER Gender Identity Male 03/05/2024 8:04 AM MUSIC AUTOGRAPHER Sexual Orientation Straight 03/05/2024 8: 04 AM MUSIC AUTOGRAPHER Last Filed Vital Signs Vital Sign Reading Time Taken Comments Blood Pressure 129/87 05/30/2024 11:20 AM MUSIC AUTOGRAPHER Pulse 80 05/30/2024 11:20 AM MUSIC AUTOGRAPHER Temperature 36.4 C (97.6 F) 05/30/2024 11:20 AM MUSIC AUTOGRAPHER Respiratory Rate 18 05/30/2024 11:2 0 AM MUSIC AUTOGRAPHER Oxygen Saturation 100% 05/30/2024 11: 20 AM MUSIC AUTOGRAPHER Inhaled Oxygen Concentration - - Weight 94.3 kg (207 lb 12.8 oz) 025 11:20 AM MUSIC AUTOGRAPHER Height 182.9 cm (6') 05/15/2024 12:50 PM MUSIC AUTOGRAPHER Body Mass Index 28.18 05/15/2024 12:50 PM MUSIC AUTOGRAPHER Plan of Treatment Upcoming Encounters Date Type Department Care Team (Late st Contact Info) Description 06/17/2024 9:20 AM CDT Appointment [facility] [address] [place] [phone] 06/17/2024 9:40 AM CDT Office Visit [facility] - Hematology/Oncology [address] [place] [phone] Stephanie Connolly APRN-DIRECTOR MARKET RESEARCH [address] [place] [phone] 06/18/2024 9:20 AM CDT Appointment [facility] [address] [place] [phone] 06/19/2024 9:00 AM CDT Appointment [facility] [address] [place] [phone] 06/20/2024 9:10 AM CDT Appointment [facility] [address] [place] [phone] 06/21/2024 9:10 AM CDT Appointment [facility] [address] [place] [phone] Health Maintenance Due Date Last Done Comments [...] this topic Medical Devices Implanted Type Area Incident Commander Device Identifier Shelf Expiration Date Model / Serial / Lot Port Implinfn Powerport Clrvu Argd Kandy Implanted:Qty : 1 on 04/11/2024 by Davian Marshall MD at [facility] Catheters Right: Chest Wall [employer] [id number] 02/07/2025 [id number] / / [id number] Procedures Procedure Name Priority Date/Time Associated Diagnosis Comments COMPREHENSIVE METABOLIC PANEL Routine 05/30/2024 11:05 AM MUSIC AUTOGRAPHER Acute myeloid leuk w multilin dysplasia, 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) CBC W AUTO DIFFERENTIAL Routine 05/30/19 11:05 AM MUSIC AUTOGRAPHER Acute myeloid leuk w multilin dysplasia, 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) DIFFERENTIAL MANUAL Routine 05/20/2024 9 :42 AM MUSIC AUTOGRAPHER Acute myeloid leuk w multilin dysplasia, 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) COMPREHENSIVE METABOLIC PANEL Routine 05/20/2024 9:42 AM MUSIC AUTOGRAPHER Acute myeloid leuk w multilin dysplasia, 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) CBC W AUTO DIFFERENTIAL Routine 05/20/19 9:42 AM MUSIC AUTOGRAPHER Acute myeloid leuk w multilin dysplasia, 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) DIFFERENTIAL MANUAL Routine 05/16/2024 9 :03 AM MUSIC AUTOGRAPHER Acute myeloid leuk w multilin dysplasia, 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) COMPREHENSIVE METABOLIC PANEL Routine 05/16/2024 9:03 AM MUSIC AUTOGRAPHER Acute myeloid leuk w multilin dysplasia, 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) CBC W AUTO DIFFERENTIAL Routine 05/16/19 9:03 AM MUSIC AUTOGRAPHER Acute myeloid leuk w multilin dysplasia, 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) CHROMOSOME ANALYSIS BONE MARROW PANEL Routine 05/15/2024 1:35 PM MUSIC AUTOGRAPHER Acute myeloid leuk w multilin dysplasia, 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) MDS (myelodysplastic syndrome) (HCC) FLOW CYTOMETRY BONE MARROW Routine 05/15/2024 1:35 PM MUSIC AUTOGRAPHER Acute myeloid leuk w multilin dysplasia, 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) MDS (myelodysplastic syndrome) (HCC) BONE MARROW BIOPSY (STL) Routine 05/15/2024 1:35 PM MUSIC AUTOGRAPHER Acute myeloid leuk w multilin dysplasia, 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) MDS (myelodysplastic syndrome) (HCC) LAB MISC TEST (NOT BLOOD) Routine 05/15/2024 1:35 PM MUSIC AUTOGRAPHER Acute myeloid leuk w multilin dysplasia, 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) MDS (myelodysplastic syndrome) (HCC) LAB MISC TEST (NOT BLOOD) Routine 05/15/2024 1:35 PM MUSIC AUTOGRAPHER Acute myeloid leuk w multilin dysplasia, 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) MDS (myelodysplastic syndrome) (HCC) DIFFERENTIAL MANUAL Routine 05/15/2024 1 :01 PM MUSIC AUTOGRAPHER Acute myeloid leuk w multilin dysplasia, 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) MDS (myelodysplastic syndrome) (HCC) CBC W AUTO DIFFERENTIAL Routine 05/15/19 1:01 PM MUSIC AUTOGRAPHER Acute myeloid leuk w multilin dysplasia, 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) MDS (myelodysplastic syndrome) (HCC) EKG 12-LEAD Routine 04/22/2024 1:27 PM MUSIC AUTOGRAPHER Acute myeloid leukemia 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) DIFFERENTIAL MANUAL Routine 04/22/2024 1 0:11 AM MUSIC AUTOGRAPHER Acute myeloid leuk w multilin dysplasia, 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) COMPREHENSIVE METABOLIC PANEL Routine 04/22/2024 10:11 AM MUSIC AUTOGRAPHER Acute myeloid leuk w multilin dysplasia, 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) CBC W AUTO DIFFERENTIAL Routine 04/22/19 10:11 AM MUSIC AUTOGRAPHER Acute myeloid leuk w multilin dysplasia, 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) COMPREHENSIVE METABOLIC PANEL Routine 04/18/2024 9:48 AM MUSIC AUTOGRAPHER Acute myeloid leuk w multilin dysplasia, 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) CBC W AUTO DIFFERENTIAL Routine 04/18/19 9:48 AM MUSIC AUTOGRAPHER Acute myeloid leuk w multilin dysplasia, 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) QUANTIFERON-TB GOLD PLUS 4-TUBE Routine 04/16/2024 1:43 PM MUSIC AUTOGRAPHER LDH BLOOD Routine 04/16/2024 10:26 AM MUSIC AUTOGRAPHER Tumor lysis syndrome (HCC) COMPREHENSIVE METABOLIC PANEL Routine 04/16/2024 10:26 AM MUSIC AUTOGRAPHER Acute myeloid leuk w multilin dysplasia, 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) CBC W AUTO DIFFERENTIAL Routine 04/16/19 10:26 AM MUSIC AUTOGRAPHER Acute myeloid leuk w multilin dysplasia, 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) COMPREHENSIVE METABOLIC PANEL Routine 04/11/2024 10:54 AM MUSIC AUTOGRAPHER Acute myeloid leuk w multilin dysplasia, 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) CBC W AUTO DIFFERENTIAL Routine 04/11/19 10:54 AM MUSIC AUTOGRAPHER Acute myeloid leuk w multilin dysplasia, 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) IR TIM CATH INSERT Routine 04/11/2024 9:45 AM MUSIC AUTOGRAPHER Acute myeloid leukemia 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) PT-INR [facility] STAT 04/11/2024 7:20 AM MUSIC AUTOGRAPHER Acute myeloid leukemia 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) MDS (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, 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) PHOSPHORUS BLOOD Routine 04/01/2024 3:12 PM MUSIC AUTOGRAPHER Tumor lysis syndrome (HCC) URIC ACID BLOOD Routine 04/01/2024 3:12 PM MUSIC AUTOGRAPHER Tumor lysis syndrome (HCC) DIFFERENTIAL MANUAL Routine 04/01/2024 3 :12 PM MUSIC AUTOGRAPHER Acute myeloid leukemia 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) MAGNESIUM BLOOD Routine 04/01/2024 3:12 PM MUSIC AUTOGRAPHER Acute myeloid leukemia 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) ERYTHROPOIETIN Routine 04/01/2024 3:12 PM MUSIC AUTOGRAPHER Acute myeloid leukemia 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) SOLUBLE TRANSFERRIN RECEPTOR Routine 04/01/2024 3:12 PM MUSIC AUTOGRAPHER Acute myeloid leukemia 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) COMPREHENSIVE METABOLIC PANEL Routine 04/01/2024 3:12 PM MUSIC AUTOGRAPHER Acute myeloid leukemia 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) CBC W AUTO DIFFERENTIAL Routine 04/01/20 3:12 PM MUSIC AUTOGRAPHER Acute myeloid leukemia 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) LAB RESULTS ORDER 03/25/2024 DIFFERENTIAL MANUAL AM Draw 03/23/2024 1 2:25 AM MUSIC AUTOGRAPHER MAGNESIUM BLOOD Routine 03/23/2024 12:25 AM MUSIC AUTOGRAPHER URIC ACID BLOOD Routine 03/23/2024 12:25 AM MUSIC AUTOGRAPHER PHOSPHORUS BLOOD Routine 03/23/2024 12:2 5 AM MUSIC AUTOGRAPHER COMPREHENSIVE METABOLIC PANEL Routine 03/23/2024 12:25 AM MUSIC AUTOGRAPHER LDH BLOOD Routine 03/23/2024 12:25 AM MUSIC AUTOGRAPHER PTT [facility] AM Draw 03/23/2024 12:25 AM MUSIC AUTOGRAPHER PT-INR [facility] AM Draw 03/23/2024 12:25 AM MUSIC AUTOGRAPHER CBC W AUTO DIFFERENTIAL AM Draw 03/23/20 12:25 AM MUSIC AUTOGRAPHER MAGNESIUM BLOOD Routine 03/22/2024 6:20 PM MUSIC AUTOGRAPHER URIC ACID BLOOD Routine 03/22/2024 6:20 PM MUSIC AUTOGRAPHER PHOSPHORUS BLOOD Routine 03/22/2024 6:20 PM MUSIC AUTOGRAPHER COMPREHENSIVE METABOLIC PANEL Routine 03/22/2024 6:20 PM MUSIC AUTOGRAPHER LDH BLOOD Routine 03/22/2024 6:20 PM MUSIC AUTOGRAPHER DIFFERENTIAL MANUAL AM Draw 03/22/2024 6 :58 AM MUSIC AUTOGRAPHER MAGNESIUM BLOOD Routine 03/22/2024 6:58 AM MUSIC AUTOGRAPHER URIC ACID BLOOD Routine 03/22/2024 6:58 AM MUSIC AUTOGRAPHER PHOSPHORUS BLOOD Routine 03/22/2024 6:58 AM MUSIC AUTOGRAPHER COMPREHENSIVE METABOLIC PANEL Routine 03/22/2024 6:58 AM MUSIC AUTOGRAPHER LDH BLOOD Routine 03/22/2024 6:58 AM MUSIC AUTOGRAPHER PTT [facility] AM Draw 03/22/2024 6:58 AM MUSIC AUTOGRAPHER PT-INR [facility] AM Draw 03/22/2024 6:58 AM MUSIC AUTOGRAPHER CBC W AUTO DIFFERENTIAL AM Draw 03/22/20 24 6:58 AM MUSIC AUTOGRAPHER MAGNESIUM BLOOD Routine 03/21/2024 3:47 AM MUSIC AUTOGRAPHER URIC ACID BLOOD Routine 03/21/2024 3:47 AM MUSIC AUTOGRAPHER PHOSPHORUS BLOOD Routine 03/21/2024 3:47 AM MUSIC AUTOGRAPHER COMPREHENSIVE METABOLIC PANEL Routine 03/21/2024 3:47 AM MUSIC AUTOGRAPHER LDH BLOOD Routine 03/21/2024 3:47 AM MUSIC AUTOGRAPHER PTT [facility] AM Draw 03/21/2024 3:47 AM MUSIC AUTOGRAPHER PT-INR [facility] AM Draw 03/21/2024 3:47 AM MUSIC AUTOGRAPHER CBC W AUTO DIFFERENTIAL AM Draw 03/21/20 3:47 AM MUSIC AUTOGRAPHER MAGNESIUM BLOOD Routine 03/20/2024 4:07 PM MUSIC AUTOGRAPHER URIC ACID BLOOD Routine 03/20/2024 4:07 PM MUSIC AUTOGRAPHER PHOSPHORUS BLOOD Routine 03/20/2024 4:07 PM MUSIC AUTOGRAPHER COMPREHENSIVE METABOLIC PANEL Routine 03/20/2024 4:07 PM MUSIC AUTOGRAPHER LDH BLOOD Routine 03/20/2024 4:07 PM MUSIC AUTOGRAPHER DIFFERENTIAL MANUAL AM Draw 03/20/2024 6 :28 AM MUSIC AUTOGRAPHER LDH BLOOD Routine 03/20/2024 6:28 AM MUSIC AUTOGRAPHER PTT [facility] AM Draw 03/20/2024 6:28 AM MUSIC AUTOGRAPHER PT-INR [facility] AM Draw 03/20/2024 6:28 AM MUSIC AUTOGRAPHER URIC ACID BLOOD Routine 03/20/2024 6:28 AM MUSIC AUTOGRAPHER PHOSPHORUS BLOOD Routine 03/20/2024 6:28 AM MUSIC AUTOGRAPHER MAGNESIUM BLOOD Routine 03/20/2024 6:28 AM MUSIC AUTOGRAPHER COMPREHENSIVE METABOLIC PANEL AM Draw 03/20/2024 6:28 AM MUSIC AUTOGRAPHER CBC W AUTO DIFFERENTIAL AM Draw 03/20/20 24 6:28 AM MUSIC AUTOGRAPHER DIFFERENTIAL MANUAL AM Draw 03/19/2024 6 :23 AM MUSIC AUTOGRAPHER LDH BLOOD Routine 03/19/2024 6:23 AM MUSIC AUTOGRAPHER PTT [facility] AM Draw 03/19/2024 6:23 AM MUSIC AUTOGRAPHER PT-INR [facility] AM Draw 03/19/2024 6:23 AM MUSIC AUTOGRAPHER URIC ACID BLOOD Routine 03/19/2024 6:23 AM MUSIC AUTOGRAPHER PHOSPHORUS BLOOD Routine 03/19/2024 6:23 AM MUSIC AUTOGRAPHER MAGNESIUM BLOOD Routine 03/19/2024 6:23 AM MUSIC AUTOGRAPHER COMPREHENSIVE METABOLIC PANEL AM Draw 03/19/2024 6:23 AM MUSIC AUTOGRAPHER CBC W AUTO DIFFERENTIAL AM Draw 03/19/20 6:23 AM MUSIC AUTOGRAPHER EKG 12-LEAD Routine 03/18/2024 1:48 PM MUSIC AUTOGRAPHER Inverted T wave PATHOLOGY PERIPHERAL SMEAR REVIEW AM Draw 03/18/2024 8:33 AM MUSIC AUTOGRAPHER DIFFERENTIAL MANUAL AM Draw 03/18/2024 8 :33 AM MUSIC AUTOGRAPHER LDH BLOOD Routine 03/18/2024 8:33 AM MUSIC AUTOGRAPHER PTT [facility] AM Draw 03/18/2024 8:33 AM MUSIC AUTOGRAPHER PT-INR [facility] AM Draw 03/18/2024 8:33 AM MUSIC AUTOGRAPHER URIC ACID BLOOD Routine 03/18/2024 8:33 AM MUSIC AUTOGRAPHER PHOSPHORUS BLOOD Routine 03/18/2024 8:33 AM MUSIC AUTOGRAPHER MAGNESIUM BLOOD Routine 03/18/2024 8:33 AM MUSIC AUTOGRAPHER COMPREHENSIVE METABOLIC PANEL AM Draw 03/18/2024 8:33 AM MUSIC AUTOGRAPHER CBC W AUTO DIFFERENTIAL AM Draw 03/18/20 8:33 AM MUSIC AUTOGRAPHER DIFFERENTIAL MANUAL AM Draw 03/17/2024 5 :28 AM MUSIC AUTOGRAPHER LDH BLOOD Routine 03/17/2024 5:28 AM MUSIC AUTOGRAPHER PTT [facility] AM Draw 03/17/2024 5:28 AM MUSIC AUTOGRAPHER PT-INR [facility] AM Draw 03/17/2024 5:28 AM MUSIC AUTOGRAPHER URIC ACID BLOOD Routine 03/17/2024 5:28 AM MUSIC AUTOGRAPHER PHOSPHORUS BLOOD Routine 03/17/2024 5:28 AM MUSIC AUTOGRAPHER MAGNESIUM BLOOD Routine 03/17/2024 5:28 AM MUSIC AUTOGRAPHER COMPREHENSIVE METABOLIC PANEL AM Draw 03/17/2024 5:28 AM MUSIC AUTOGRAPHER CBC W AUTO DIFFERENTIAL AM Draw 03/17/20 24 5:28 AM MUSIC AUTOGRAPHER DIFFERENTIAL MANUAL AM Draw 03/16/2024 1 2:04 AM MUSIC AUTOGRAPHER LDH BLOOD Routine 03/16/2024 12:04 AM MUSIC AUTOGRAPHER PTT [facility] AM Draw 03/16/2024 12:04 AM MUSIC AUTOGRAPHER PT-INR [facility] AM Draw 03/16/2024 12:04 AM MUSIC AUTOGRAPHER URIC ACID BLOOD Routine 03/16/2024 12:04 AM MUSIC AUTOGRAPHER PHOSPHORUS BLOOD Routine 03/16/2024 12:0 4 AM MUSIC AUTOGRAPHER MAGNESIUM BLOOD Routine 03/16/2024 12:04 AM MUSIC AUTOGRAPHER COMPREHENSIVE METABOLIC PANEL AM Draw 03/16/2024 12:04 AM MUSIC AUTOGRAPHER CBC W AUTO DIFFERENTIAL AM Draw 03/16/20 24 12:04 AM MUSIC AUTOGRAPHER ECHO COMPLETE W CONTRAST Routine 03/15/2024 1:47 PM MUSIC AUTOGRAPHER MDS (myelodysplastic syndrome) (HCC) MYELOID MALIGNANCIES MUTATION PNL Routine 03/15/2024 9:05 AM MUSIC AUTOGRAPHER MDS (myelodysplastic syndrome) (HCC) FISH MDS PANEL BLOOD OR BONE MARROW Routine 03/15/2024 9:05 AM MUSIC AUTOGRAPHER MDS (myelodysplastic syndrome) (HCC) FISH AML PANEL BLOOD OR BM RFLX PML/DANTE Routine 03/15/2024 9:05 AM MUSIC AUTOGRAPHER MDS (myelodysplastic syndrome) (HCC) FLOW CYTOMETRY BONE MARROW Routine 03/15/2024 9:05 AM MUSIC AUTOGRAPHER MDS (myelodysplastic syndrome) (HCC) BONE MARROW BIOPSY (STL) Routine 03/15/2024 9:05 AM MUSIC AUTOGRAPHER MDS (myelodysplastic syndrome) (HCC) FISH PML/DANTE PANEL Routine 03/15/2024 9 :05 AM MUSIC AUTOGRAPHER MDS (myelodysplastic syndrome) (HCC) CHROMOSOME ANALYSIS BONE MARROW PANEL Routine 03/15/2024 9:05 AM MUSIC AUTOGRAPHER MDS (myelodysplastic syndrome) (HCC) LAB MISC TEST (NOT BLOOD) Routine 03/15/2024 9:05 AM MUSIC AUTOGRAPHER LAB MISC TEST (NOT BLOOD) Routine 03/15/2024 9:05 AM MUSIC AUTOGRAPHER LAB MISC TEST (NOT BLOOD) Routine 03/15/2024 9:05 AM MUSIC AUTOGRAPHER DIFFERENTIAL MANUAL AM Draw 03/15/2024 7 :53 AM MUSIC AUTOGRAPHER LDH BLOOD Routine 03/15/2024 7:53 AM MUSIC AUTOGRAPHER PTT [facility] AM Draw 03/15/2024 7:53 AM MUSIC AUTOGRAPHER PT-INR [facility] AM Draw 03/15/2024 7:53 AM MUSIC AUTOGRAPHER URIC ACID BLOOD Routine 03/15/2024 7:53 AM MUSIC AUTOGRAPHER PHOSPHORUS BLOOD Routine 03/15/2024 7:53 AM MUSIC AUTOGRAPHER MAGNESIUM BLOOD Routine 03/15/2024 7:53 AM MUSIC AUTOGRAPHER COMPREHENSIVE METABOLIC PANEL AM Draw 03/15/2024 7:53 AM MUSIC AUTOGRAPHER CBC W AUTO DIFFERENTIAL AM Draw 03/15/20 24 7:53 AM MUSIC AUTOGRAPHER EKG 12-LEAD STAT 03/14/2024 12:30 PM MUSIC AUTOGRAPHER MDS (myelodysplastic syndrome) (HCC) FLOW CYTOMETRY BLOOD PROFILE Routine 03/14/2024 10:32 AM MUSIC AUTOGRAPHER MDS (myelodysplastic syndrome) (HCC) DIFFERENTIAL MANUAL STAT 03/13/2024 1 1:26 PM MUSIC AUTOGRAPHER LDH BLOOD Routine 03/13/2024 11:26 PM MUSIC AUTOGRAPHER PTT SLH Routine 03/13/2024 11:26 PM MUSIC AUTOGRAPHER PT-INR [facility] Routine 03/13/2024 11:26 PM MUSIC AUTOGRAPHER FIBRINOGEN ACTIVITY Routine 03/13/2024 1 1:26 PM MUSIC AUTOGRAPHER D-DIMER Routine 03/13/2024 11:26 PM MUSIC AUTOGRAPHER URIC ACID BLOOD Routine 03/13/2024 11:26 PM MUSIC AUTOGRAPHER PHOSPHORUS BLOOD Routine 03/13/2024 11:2 6 PM MUSIC AUTOGRAPHER MAGNESIUM BLOOD Routine 03/13/2024 11:26 PM MUSIC AUTOGRAPHER COMPREHENSIVE METABOLIC PANEL STAT 03/13/2024 11:26 PM MUSIC AUTOGRAPHER CBC W AUTO DIFFERENTIAL STAT 03/13/20 24 11:26 PM MUSIC AUTOGRAPHER QUINN-RICHMOND VIRUS QUANT BLOOD STL Routine 03/13/2024 11:26 PM MUSIC AUTOGRAPHER CYTOMEGALOVIRUS (CMV) QUANTITATIVE PLASMA Routine 03/13/2024 11:26 PM MUSIC AUTOGRAPHER CHROMOSOME ANALYSIS LEUKEMIA BLD Routine 03/04/2024 4:13 PM MUSIC AUTOGRAPHER MDS (myelodysplastic syndrome) (HCC) FISH PML/DANTE PANEL Routine 03/04/2024 4 :13 PM MUSIC AUTOGRAPHER MDS (myelodysplastic syndrome) (HCC) FISH AML PANEL BLOOD OR BM RFLX PML/DANTE Routine 03/04/2024 4:13 PM MUSIC AUTOGRAPHER MDS (myelodysplastic syndrome) (HCC) FISH AML+MDS PANEL BLOOD OR BONE MARROW Routine 03/04/2024 4:13 PM MUSIC AUTOGRAPHER MDS (myelodysplastic syndrome) (HCC) MYELOID MALIGNANCIES MUTATION PNL STAT 03/04/2024 4:13 PM MUSIC AUTOGRAPHER MDS (myelodysplastic syndrome) (HCC) HLA TYPING LOW/HIGH RESOLUTION DPB1 Routine 03/04/2024 4:13 PM MUSIC AUTOGRAPHER MDS (myelodysplastic syndrome) (HCC) HLA TYPING DNA HIGH RESOLUTION DR Routine 03/04/2024 4:13 PM MUSIC AUTOGRAPHER MDS (myelodysplastic syndrome) (HCC) HLA TYPING DNA HIGH RESOLUTION B Routine 03/04/2024 4:13 PM MUSIC AUTOGRAPHER MDS (myelodysplastic syndrome) (HCC) HLA TYPING DNA HIGH RESOLUTION C Routine 03/04/2024 4:13 PM MUSIC AUTOGRAPHER MDS (myelodysplastic syndrome) (HCC) HLA TYPING DNA HIGH RESOLUTION DQ Routine 03/04/2024 4:13 PM MUSIC AUTOGRAPHER MDS (myelodysplastic syndrome) (HCC) HLA TYPING DNA HIGH RESOLUTION A Routine 03/04/2024 4:13 PM MUSIC AUTOGRAPHER MDS (myelodysplastic syndrome) (HCC) HLA TYPING DNA LOW RESOLUTION DR,DQ Routine 03/04/2024 4:13 PM MUSIC AUTOGRAPHER MDS (myelodysplastic syndrome) (HCC) HLA TYPING DNA LOW RESOLUTION A,B,C Routine 03/04/2024 4:13 PM MUSIC AUTOGRAPHER MDS (myelodysplastic syndrome) (HCC) HLA TYPING DNA HIGH RES Routine 03/04/20 4:13 PM MUSIC AUTOGRAPHER MDS (myelodysplastic syndrome) (HCC) DIFFERENTIAL MANUAL Routine 03/04/2024 4:13 PM MUSIC AUTOGRAPHER Neutropenia, unspecified type (HCC) BCR-ABL1 CML+AML PCR QUANT PNL Routine 03/04/2024 4:13 PM MUSIC AUTOGRAPHER MDS (myelodysplastic syndrome) (HCC) CYTOMEGALOVIRUS ANTIBODY IGG BLOOD Routine 03/04/2024 4:13 PM MUSIC AUTOGRAPHER MDS (myelodysplastic syndrome) (HCC) HEPATITIS C ANTIBODY Routine 03/04/2024 4:13 PM MUSIC AUTOGRAPHER Neutropenia, unspecified type (HCC) HEPATITIS B SURFACE ANTIBODY Routine 03/04/2024 4:13 PM MUSIC AUTOGRAPHER Neutropenia, unspecified type (HCC) HIV-1 HIV-2 ANTIBODY + HIV P24 AG PANEL Routine 03/04/2024 4:13 PM MUSIC AUTOGRAPHER Neutropenia, unspecified type (HCC) ERYTHROCYTE SEDIMENTATION RATE Routine 03/04/2024 4:13 PM MUSIC AUTOGRAPHER Neutropenia, unspecified type (HCC) C-REACTIVE PROTEIN Routine 03/04/2024 4: 13 PM MUSIC AUTOGRAPHER Neutropenia, unspecified type (HCC) RHEUMATOID FACTOR BLOOD QUANTITATIVE Routine 03/04/2024 4:13 PM MUSIC AUTOGRAPHER Neutropenia, unspecified type (HCC) MARLINE BLOOD SCREEN W/REFLEX TITER Routine 03/04/2024 4:13 PM MUSIC AUTOGRAPHER Neutropenia, unspecified type (HCC) FERRITIN Routine 03/04/2024 4:13 PM MUSIC AUTOGRAPHER Neutropenia, unspecified type (HCC) IRON + TRANSFERRIN PANEL Routine 03/04/2024 4:13 PM MUSIC AUTOGRAPHER Neutropenia, unspecified type (HCC) TSH REFLEX FREE T4 Routine 03/04/2024 4: 13 PM MUSIC AUTOGRAPHER Neutropenia, unspecified type (HCC) ZINC BLOOD Routine 03/04/2024 4:13 PM MUSIC AUTOGRAPHER Neutropenia, unspecified type (HCC) COPPER BLOOD Routine 03/04/2024 4:13 PM MUSIC AUTOGRAPHER Neutropenia, unspecified type (HCC) FOLATE Routine 03/04/2024 4:13 PM MUSIC AUTOGRAPHER Neutropenia, unspecified type (HCC) VITAMIN B12 Routine 03/04/2024 4:13 PM MUSIC AUTOGRAPHER Neutropenia, unspecified type (HCC) COMPREHENSIVE METABOLIC PANEL Routine 03/04/2024 4:13 PM MUSIC AUTOGRAPHER Neutropenia, unspecified type (HCC) CBC W AUTO DIFFERENTIAL Routine 03/04/20 4:13 PM MUSIC AUTOGRAPHER Neutropenia, unspecified type (HCC) HEPATITIS B CORE ANTIBODY TOTAL Routine 03/04/2024 4:13 PM MUSIC AUTOGRAPHER Neutropenia, unspecified type (HCC) from Last 3 Months Results * (ABNORMAL) CBC W/ DIFFERENTIAL (05/30/2024 11:05 AM MUSIC AUTOGRAPHER) Only the most recent of20 resultswithin the time period is included. WBC 3.1(L) 4.0 - 10.7 x10E9/L 05/30/2024 12:31 PM [facility] RBC Count 3.95(L) 4.30 - 5.80 x10E12/L 05/30/2024 12:31 PM [facility] Hemoglobin 11.5(L) 13.3 - 17.5 g/dL 05/30/2024 12:31 PM [facility] Hematocrit 34.5(L) 38.7 - 51.1 % 05/30/2024 12:31 PM [facility] MCV 87.3 80.0 - 98.0 fL 05/30/2024 12:31 PM [facility] MCH 29.1 26.7 - 33.6 pg 05/30/2024 12:31 PM [facility] MCHC 33.3 31.7 - 36.3 g/dL 05/30/2024 12:31 PM [facility] RDW-CV 18.9(H) 11.3 - 14.8 % 05/30/2024 12:31 PM [facility] Platelet Count 05/30/2024 12:31 PM [facility] Comment:Platelets clumped on slide but appears adequate. Recommend repeat with a sodium citrate blue top tube. Preliminary Absolute Neutrophil 2.01 1.60 - 7.50 x10E9/L 05/30/2024 12:31 PM [facility] Comment:Preliminary ANC pend ing manual confirmation Neutrophil % 65.1 41.0 - 74.0 % 05/30/2024 12:31 PM [facility] Lymphocyte % 15.2(L) 17.0 - 47.0 % 05/30/2024 12:31 PM [facility] Monocyte % 18.1(H) 3.0 - 11.0 % 05/30/2024 12:31 PM [facility] Eosinophil % 0.0 0.0 - 7.0 % 05/30/2024 12:31 PM [facility] Basophil % 0.0 0.0 - 1.6 % 05/30/2024 12:31 PM [facility] Immature Granulocytes % 1.6(H) 0.0 - 1.0 % 05/30/2024 12:31 PM [facility] Neutrophil Absolute 2.01 1.60 - 7.50 x10E9/L 05/30/2024 12:31 PM [facility] Lymphocyte Absolute 0.47(L) 1.00 - 4.40 x10E9/L 05/30/2024 12:31 PM [facility] Monocyte Absolute 0.56 0.15 - 1.00 x10E9/L 05/30/2024 12:31 PM [facility] Eosinophil Absolute 0.00 0.00 - 0.60 x10E9/L 05/30/2024 12:31 PM [facility] Basophil Absolute 0.00 0.00 - 0.13 x10E9/L 05/30/2024 12:31 PM [facility] Blood BLOOD SPECIMEN / Unknown Venipuncture / Unknown 05/30/2024 11:05 AM MUSIC AUTOGRAPHER 05/30/2024 11:25 AM [facility] Cindy Garcia MD LAB - HEMATOLOGY ORD ERABLES [facility] [address] [place] [address], [facility] [phone] * (ABNORMAL) COMPREHENSIVE METABOLIC PANEL (05/30/2024 11:05 AM [facility]) Only the most recent of21 resultswithin the time period is included. BUN 15 7 - 26 mg/dL 05/30/2024 12:26 PM [facility] Creatinine 1.15 0.71 - 1.16 mg/dL 05/30/2024 12:26 PM [facility] Sodium 140 136 - 145 mmol/L 05/30/2024 12:26 PM [facility] Potassium 3.7 3.5 - 4.5 mmol/L 05/30/2024 12:26 PM [facility] Chloride 108(H) 98 - 107 mmol/L 05/30/2024 12:26 PM [facility] CO2 20(L) 22 - 29 mmol/L 05/30/2024 12:26 PM [facility] Glucose 97 70 - 99 mg/dL 05/30/2024 12:26 PM [facility] Calcium 9.3 8.4 - 10.2 mg/dL 05/30/2024 12:26 PM [facility] Protein Total 6.4 6.0 - 8.3 g/dL 05/30/2024 12:26 PM [facility] Albumin 4.0 3.4 - 5.0 g/dL 05/30/2024 12:26 PM [facility] Bilirubin Total 0.9 0.2 - 1.2 mg/dL 05/30/2024 12:26 PM [facility] Alkaline Phosphatase 128 40 - 150 U/L 05/30/2024 12:26 PM [facility] ALT 11 5 - 55 U/L 05/30/2024 12:26 PM [facility] AST 13 5 - 34 U/L 05/30/2024 12:26 PM [facility] Anion Gap 12 6 - 16 05/30/2024 12:26 PM [facility] BUN/Creatinine Ratio 13 7 - 23 05/30/2024 12:26 PM [facility] Osmolality Calculated 291 275 - 295 mOsm/kg 05/30/2024 12:26 PM [facility] Albumin/Globulin Ratio 1.7 1.1 - 2.3 05/30/2024 12:26 PM [facility] eGFR by CKD-EPI 65(L) >=90 mL/min/1.7 3 m2 05/30/2024 12:26 PM [facility] Blood BLOOD SPECIMEN / Unknown Venipuncture / Unknown 05/30/2024 11:05 AM MUSIC AUTOGRAPHER 05/30/2024 11:43 AM MUSIC AUTOGRAPHER Cindy Garcia MD LAB - CHEMISTRY CHELI MONREAL [facility] [address] [place] [address], [facility] [phone] * (ABNORMAL) DIFFERENTIAL MANUAL (05/20/2024 9:42 AM MUSIC AUTOGRAPHER) Only the most recent of15 resultswithin the time period is included. Neutrophil % 8(L) 41 - 74 % 05/20/2024 12:18 PM [facility] Lymphocyte % 39 17 - 47 % 05/20/2024 12:18 PM [facility] Monocyte % 51(H) 3 - 11 % 05/20/2024 12:18 PM [facility] Eosinophil % 2 0 - 7 % 05/20/2024 12:18 PM [facility] Neutrophil Absolute 0.07(L) 1.60 - 7.50 x10E9/L 05/20/2024 12:18 PM [facility] Lymphocyte Absolute 0.35(L) 1.00 - 4.40 x10E9/L 05/20/2024 12:18 PM [facility] Monocyte Absolute 0.46 0.15 - 1.00 x10E9/L 05/20/2024 12:18 PM [facility] Eosinophil Absolute 0.02 0.00 - 0.60 x10E9/L 05/20/2024 12:18 PM [facility] RBC Morphology REVIEWED 05/20/2024 12:18 PM [facility] Microcytosis MODERATE(A) (none) 05/20/2024 12:18 PM [facility] Schistocytes MODERATE(A) (none) 05/20/2024 12:18 PM [facility] Large Platelets PRESENT(A) (none) 12:18 PM [facility] Blood BLOOD SPECIMEN / Unknown Venipuncture / Unknown 05/20/2024 9:42 AM MUSIC AUTOGRAPHER 05/20/2024 10:14 AM MUSIC AUTOGRAPHER Cindy Garcia MD LAB - HEMATOLOGY ORD ERABLES [facility] [address] [place] [address], [facility] [phone] * FLOW CYTOMETRY BONE MARROW (05/15/2024 1:35 PM MUSIC AUTOGRAPHER) Only the most recent of2 resultswithin the time period is included. Case Report Flow Cytometry Case: [id number] Authorizing Provider: Chapis Prabhakar APRN-CNP Collected: 05/15/2024 01:35 PM Ordering Location: [facility] Received: 05/15/2024 03:04 PM Pathologist: Guillermo Brown MD Specimen: Bone Marrow 05/22/2024 8:46 AM [facility] Addendum 1 This addendum is issued to report the results of minimal residual disease (MRD) flow cytometric analysis performed by the [facility], [address] [place] [address]. B one marrow aspirate - No abnormal [...] part represent peripheral blood. 05/22/2024 8:46 AM [facility] Addendum electronically signed by Angeles Rosado MD on 05/22/2024 at 8:46 AM Final Diagnosis Bone marrow, flow cytometry: - No significant B-cell, increased blast, or immature monocyte population detected 05/22/2024 8:46 AM [facility] Flow Cytometry Interpretation Viability: 75% B-cells: no significant population T-cells: not increased Blasts: not increased, ~1.5% represent CD34+ myeloblasts, ~23% of overall events are mature CD14+/CD64+ monocytes with no immunophenotypic aberrancies. MRD sent: Yes A bone marrow aspirate smear prepared from the flow cytometry specimen has been reviewed for manager quality improvement purposes. 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 A-2 Flow CD10 A-3 Flow CD13 A-5 Flow CD20 A-11 Flow CD2 A-13 Flow CD14 A-16 Flow CD117 A-17 Flow CD11b A-18 Flow CD11c A-1 Flow CD5 A-4 Flow CD19 A-6 Flow CD33 A-7 Flow CD34 A-8 Flow CD45 A-12 Flow CD7 A-14 Flow CD56 A-15 Flow CD64 A-9 Willits+CD19+ A-10 Lambda+CD19+ A-19 Flow HLA-DR 05/22/2024 8:46 AM [facility] Pathologist Location at [facility] 05/22/2024 8:46 AM [facility] Disclaimer Test performed at [facility], [address] [place] [address], [id number]. *The established laboratory minimum viability is 70%. [...] high complexity clinical testing. 05/22/2024 8:46 AM [facility] Embedded Images 8:46 AM [facility] Pathology/Cytolo gy BONE MARROW SPECIMEN / Unknown Collection / Unknown 05/15/2024 1:35 PM MUSIC AUTOGRAPHER 05/15/2024 3:04 PM MUSIC AUTOGRAPHER Chapis [place] LAB - PATHOLOGY/CY TOLOGY ORDERABLES [facility] [address] [place] [address], [facility] [phone] * BONE MARROW BIOPSY (STL) (05/15/2024 1:35 PM MUSIC AUTOGRAPHER) Only the most recent of2 resultswithin the time period is included. Case Report Bone Marrow Patholog y Report Case: [id number] Authorizing Provider: Chapis Prabhakar APRN-CNP Collected: 05/15/2024 01:35 PM Ordering Location: [facility] Received: 05/15/2024 03:04 PM Pathologist: Guillermo Brown MD Specimens: A) - Bone Marrow Clot B) - Bone Marrow Core C) - Bone Marrow Aspirate D) - Blood Peripheral 05/16/2024 3:02 PM [facility] Final Diagnosis Bone marrow, aspirate, clot section, and core biopsy: - Normocellular marrow with marked erythroid hyperplasia, myeloid hypoplasia and monocytic hyperplasia. - No overt acute leukemia seen. - See description. Peripheral blood smear: - Bicytopenia. - See description. 05/16/2024 3:02 PM [facility] Comment The significance of the monocytosis is unclear. By flow cytometry, these appear mature. These likely represent reactive cells. Minimal residual disease flow cytometry is pending. Immunohistochemistry is performed to assess staining cells in an architectural context: CD34 is negative for increased blasts (<2% of marrow cellularity), CD117 highlights early erythroid precursor cells. 05/16/2024 3:02 PM [facility] Peripheral Smear Description RBC: normocytic anemia. WBC: leukopenia with absolute neutropenia and lymphopenia. Platelets: normal in number. 05/16/2024 3:02 PM [facility] Bone Marrow Aspirate Differential count [...] stain): no ring sideroblasts. 05/16/2024 3:02 PM [facility] Bone Marrow Core Biopsy and [...] similar to core biopsy. 05/16/2024 3:02 PM [facility] Flow Cytometry Summary Bone marrow, flow cytometry ([id number]): - No significant B-cell, increased blast, or immature monocyte population detected 05/16/2024 3:02 PM [facility] Clinical History AML. 05/16/2024 3:02 PM [facility] Gross Description The requisition and [...] in cassette B1. /VIVIAN 05/16/2024 3:02 PM [facility] Pathologist Location at [facility] 05/16/2024 3:02 PM [facility] Disclaimer The performance characteristics of all immunohistochemical and indirect immunofluorescence stains (if any) cited in this report were determined by the Histopathology Laboratory of [facility]. Some of these tests were developed [...] the attending (teaching) pathologist. 05/16/2024 3:02 PM MUSIC AUTOGRAPHER [facility] Embedded Images 05/16/2024 3:02 PM MUSIC AUTOGRAPHER [facility] Pathology/Cytology PERIPHERAL BLOOD / Unknown Collection / Unknown 05/15/2024 1:35 PM MUSIC AUTOGRAPHER 05/15/2024 3:04 PM MUSIC AUTOGRAPHER Miscellaneous samples (specimen) BONE MARROW SPECIMEN / Unknown 05/15/2024 1:35 PM MUSIC AUTOGRAPHER 05/15/2024 3:04 PM MUSIC AUTOGRAPHER Miscellaneous samples (specimen) SPECIMEN FROM BONE MARROW OBTAINED BY ASPIRATION / Unknown 05/15/2024 1:35 PM MUSIC AUTOGRAPHER 05/15/2024 3:04 PM MUSIC AUTOGRAPHER Miscellaneous samples (specimen) PERIPHERAL BLOOD / Unknown 05/15/2024 1:35 PM MUSIC AUTOGRAPHER 05/15/2024 3:49 PM MUSIC AUTOGRAPHER Chapis [place] LAB - PATHOLOGY/CY TOLOGY ORDERABLES [facility] [address] [phone] * LAB MISC TEST (NOT BLOOD) (05/15/2024 1:35 PM MUSIC AUTOGRAPHER) Only the most recent of4 resultswithin the time period is included. Test Name [place] xT + xR 05/22/2024 4:32 PM MUSIC AUTOGRAPHER [facility] NON INTERF Test Result See Scanned Report 05/22/2024 4:32 PM MUSIC AUTOGRAPHER [facility] NON INTERF Comment Ref Lab Tempus 05/22/2024 4:32 PM MUSIC AUTOGRAPHER [facility] NON INTERF Other BONE MARROW SPECIMEN / Unknown Collection / Unknown 05/15/2024 1:35 PM MUSIC AUTOGRAPHER 05/15/2024 4:01 PM MUSIC AUTOGRAPHER Chapis [place] LAB - BODY FLUID O RDERABLES [facility] NON INTERF [address] [place] [address], [facility] [phone] * CHROMOSOME ANALYSIS BONE MARROW PANEL (05/15/2024 1:35 PM MUSIC AUTOGRAPHER) Only the most recent of2 resultswithin the time period is included. Chromosome Analysis Bone Marrow See Note Normal 05/22/2024 1:12 PM MUSIC AUTOGRAPHER [email or web address] ([facility]) Comment: Test Performed: Chromosome Analysis Specimen [...] reviewed and approved by Oliver Muhammad, PhD, [facility] This result has been reviewed and approved by Emily Street MD A portion of this analysis was performed at the following location(s): [facility] CG[facility]KS[facility] INTERPRETIVE INFORMATION: Chromosome Analysis, Bone Marrow This test was developed and its performance characteristics determined by [facility]. It has not been cleared or approved by the [place] Food and Drug Administration. This test was performed in a CLIA certified laboratory and is intended for clinical purposes. EER Chromosome Analysis Bone Marrow See Note 05/22/2024 1:12 PM MUSIC AUTOGRAPHER [facility] [employer] ([facility]) Comment: Authorized individuals can access the [employer] Enhanced Report with an [employer] Connect account using the following link. Your local lab can assist you in obtaining the patient report if you don't have a Connect account. [email or web address] Performed By: [facility] [address] [place] [address] Slicing Machine Tender: Uche Morley MD, PhD CLIA Number: [id number] Bone marrow BONE MARROW SPECIMEN / Unknown 05/15/2024 1:35 PM MUSIC AUTOGRAPHER 05/15/2024 3:04 PM MUSIC AUTOGRAPHER Chapis [place] CRIMINALIST-DIRECTOR [employer] LAB - PATHOLOGY/CY TOLOGY ORDERABLES [facility] [employer] ([facility]) [address] [place] [address], [facility] * EKG 12-LEAD - HOSPITAL PERFORMED (04/22/2024 1:27 PM MUSIC AUTOGRAPHER) Only the most recent of3 resultswithin the time period is included. Ventricular Rate 61 BPM [facility] MUSE Atrial Rate 61 BPM [facility] MUSE P-R Interval 112 ms [facility] MUSE QRS Duration ms 126 ms [facility] MUSE Q-T Interval ms 476 ms [facility] MUSE QTC Calculation (Bezet) 479 ms [facility] MUSE Calculated P [place] 84 degrees SL MUSE Calculated R [place] 36 degrees SL MUSE Calculated T [place] -163 degrees SL MUSE Interpretation EKG NORMAL SINUS RHYTHM NON-SPECIFIC INTRA-VENTRICULA R CONDUCTION BLOCK T WAVE ABNORMALITY, CONSIDER INFERIOR ISCHEMIA T WAVE ABNORMALITY, CONSIDER ANTEROLATERAL ISCHEMIA ABNORMAL ECG WHEN COMPARED WITH ECG OF 18-MAR-2024 13:48, NO SIGNIFICANT CHANGE WAS FOUND Confirmed by HANSEL VASQUES MD ([id number]) on 04/23/2024 8:31:57 AM [facility] MUSE 04/22/2024 1:27 PM MUSIC AUTOGRAPHER 04/23/2024 8:31 AM MUSIC AUTOGRAPHER Cindy Garcia MD ECG ORDERABLES H MUSE * QUANTIFERON-TB GOLD PLUS 4-TUBE (04/16/2024 1:43 PM MUSIC AUTOGRAPHER) Pathologist [facility] [place] QuantiFERON Mitogen Minus NIL 9.09 IU/mL 04/18/2024 11:11 PM MUSIC AUTOGRAPHER [facility] ([facility]) QuantiFERON Nil Value 0.04 IU/mL 04/18/2024 11:11 PM MUSIC AUTOGRAPHER [facility]) QuantiFERON Plus TB1 Minus NIL 0.00 <=0.34 IU/mL 04/18/2024 11:11 PM MUSIC AUTOGRAPHER [facility] ([facility]) QuantiFERON Plus TB2 Minus NIL 0.00 <=0.34 IU/mL 04/18/2024 11:11 PM MUSIC AUTOGRAPHER [facility] ([facility]) QuantiFERON-TB Gold Plus Negative Negative 04/18/2024 11:11 PM MUSIC AUTOGRAPHER [facility] ([facility]) Comment: INTERPRETIVE INFORMATION:Quantiferon TB Gold Plus Interferon [...] Mycobacterium tuberculosis Infection -- [place], 2010 (http://www.cdc.gov/mmwr/preview/mmwrhtml/rg6113h3.htm), for more information concerning test performance in low-prevalence populations and use in occupational screening. Performed By: [facility] [address] [place] [address] Slicing Machine Tender: Uche Morley MD, PhD CLIA Number: [id number] Blood BLOOD SPECIMEN / Unknown Venipuncture / Unknown 04/16/2024 1:43 PM MUSIC AUTOGRAPHER 04/16/2024 2:03 PM MUSIC AUTOGRAPHER Cindy Garcia MD LAB - CHEMISTRY CHELI MONREAL Performing Organization Address City/[facility]/ZIP Co de Phone Number [facility]) [address] [place], [place] [address] * LDH BLOOD (04/16/2024 10:26 AM MUSIC AUTOGRAPHER) Only the most recent of13 resultswithin the time period is included. LDH Total 197 125 - 243 Units/L 04/16/2024 11:14 AM MUSIC AUTOGRAPHER [facility] Blood BLOOD SPECIMEN / Unknown Venipuncture / Unknown 04/16/2024 10:26 AM MUSIC AUTOGRAPHER 04/16/2024 10:48 AM MUSIC AUTOGRAPHER Cindy Garcia MD LAB - CHEMISTRY CHEIL MONREAL Performing Organization Address City/[facility]/ZIP Co de Phone Number [address] [address], [facility] [phone] * IR Tim Cath Insert (04/11/2024 9:45 AM MUSIC AUTOGRAPHER) Anatomical Region Laterality Modality Chest X-Ray Angiograph y 04/11/2024 9:19 AM MUSIC AUTOGRAPHER Impressions 04/11/2024 3:43 PM MUSIC AUTOGRAPHER Impression: Successful placement of a single lumen 8 Lithuanian x 23 cm chest power port via [...] please review the evaluation forms in [facility]. For details on monitored clinical parameters during the intra-service sedation time, please review the procedure nurse documentation in [facility]. Report dictated by Eduardo Coleman MD, PhD (resident care director). > Dictated by Eduardo Coleman MD (Crucible Furnace Tender) 04/11/2024 9:19 AM IDavian DO have personally reviewed and interpreted this examination/study. 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 3.Fluoroscopy-guided placement of single lumen 8 Lithuanian x 23 cm chest power port via [...] draped in the usual sterile manner. 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 3.Fluoroscopy-guided placement of single lumen 8 Lithuanian x 23 cm chestpower port via the [...] and draped inthe usual sterile manner. A chemical equipment sales engineer film of chest was obtained, which was [...] the procedure well and [facility]. There were no immediate complicationsassociated with the procedure. Impression: Successful placement of a single lumen 8 Lithuanian x 23 cmchest power port via the [...] intravenously in my presence, and monitored by [facility] nurse as an independent trained observer [...] please review the evaluation forms in [facility]. For details on monitored clinical parameters during the intra-service sedation time, please review the procedure nurse documentation in [facility]. Report dictated by Eduardo Coleman MD, PhD (resident care director). > Dictated by Eduardo Coleman MD (Crucible Furnace Tender) 04/11/2024 9:19AM IDavian DO have personally reviewed and interpreted this examination/study. > Interpreting Provider: Davian Marshall DO on 04/11/2024 3:43 PM Cindy Garcia MD IR ORDERABLES * PT-INR [facility] (04/11/2024 7:20 AM MUSIC AUTOGRAPHER) Only the most recent of11 resultswithin the time period is included. PT 14.6 12.1 - 14.8 Seconds 04/11/2024 7:56 AM [facility] INR 1.2 See Comment 04/11/2024 7:56 AM [facility] Comment:The suggested therap eutic range for standard coumadin (warfarin) therapy is an INR of 2.0-3.0. For high-risk patients (Mechanical Mitral Valve Prosthesis, etc.), the suggested prophylactic therapeutic range is an INR of 2.5-3.5. Blood BLOOD SPECIMEN / Unknown Venipuncture / Unknown 04/11/2024 7:20 AM MUSIC AUTOGRAPHER 04/11/2024 7:23 AM MUSIC AUTOGRAPHER Cindy Garcia MD LAB - COAGULATION OR DERABLES Performing Organization Address City/[facility]/ZIP Co de Phone Number [facility] [address] [place] [address], [facility] [phone] * URIC ACID BLOOD (04/01/2024 3:12 PM MUSIC AUTOGRAPHER) Only the most recent of13 resultswithin the time period is included. Uric Acid 4.0 3.5 - 7.2 mg/dL 04/01/2024 5:52 PM MUSIC AUTOGRAPHER [facility] Blood BLOOD SPECIMEN / Unknown Lab Venipuncture / Unknown 04/01/2024 3:12 PM MUSIC AUTOGRAPHER 04/01/2024 5:30 PM MUSIC AUTOGRAPHER Cindy Garcia MD LAB - CHEMISTRY ORDE RABLES Performing Organization Address City/[facility]/ZIP Co de Phone Number [facility] [address] [place] [address], [facility] [phone] * ERYTHROPOIETIN (04/01/2024 3:12 PM MUSIC AUTOGRAPHER) Erythropoietin 22 4 - 27 mU/mL 04/02/2024 11:36 AM MUSIC AUTOGRAPHER [employer] ([facility]) Comment: INTERPRETIVE INFORMATION: Erythropoietin Normal serum [...] may benefit from therapy with recombinant EPO ([facility] [phone],1989). Performed By: [facility] [address] [place] [address] Slicing Machine Tender: Uche Morley MD, PhD CLIA Number: [id number] Blood BLOOD SPECIMEN / Unknown Lab Venipuncture / Unknown 04/01/2024 3:12 PM MUSIC AUTOGRAPHER 04/01/2024 3:22 PM MUSIC AUTOGRAPHER Cindy Garcia MD LAB - CHEMISTRY ELIE JOCELIN [employer] [facility]) [address] [place] [address], [facility] * SOLUBLE TRANSFERRIN RECEPTOR (04/01/2024 3:12 PM MUSIC AUTOGRAPHER) [facility] Soluble Transferrin Receptor 3.3 2.2 - 5.0 mg/L 04/02/2024 9:13 PM MUSIC AUTOGRAPHER [facility] [employer] ([facility]) Comment: INTERPRETIVE INFORMATION: Soluble Transferrin Receptor [...] Fe Status High Normal High Performed By: [facility] [address] [place] [address] Slicing Machine Tender: Uche Morley MD, PhD CLIA Number: [id number] Blood BLOOD SPECIMEN / Unknown Lab Venipuncture / Unknown 04/01/2024 3:12 PM MUSIC AUTOGRAPHER 04/01/2024 3:22 PM MUSIC AUTOGRAPHER Cindy Garcia MD LAB - CHEMISTRY CHELI MONREAL Performing Organization Address City/[facility]/ZIP Co de Phone Number [facility]) [address] [place] [address] * PHOSPHORUS BLOOD (04/01/2024 3:12 PM MUSIC AUTOGRAPHER) Only the most recent of13 resultswithin the time period is included. Phosphorus 2.9 2.8 - 5.1 mg/dL 04/01/2024 5:52 PM MUSIC AUTOGRAPHER [facility] Blood BLOOD SPECIMEN / Unknown Lab Venipuncture / Unknown 04/01/2024 3:12 PM MUSIC AUTOGRAPHER 04/01/2024 5:30 PM MUSIC AUTOGRAPHER Cindy Garcia MD LAB - CHEMISTRY CHELI MONREAL Performing Organization Address City/[facility]/ZIP Co de Phone Number [address] [address], [facility] [phone] * MAGNESIUM BLOOD (04/01/2024 3:12 PM MUSIC AUTOGRAPHER) Only the most recent of13 resultswithin the time period is included. Magnesium 2.1 1.6 - 2.6 mg/dL 04/01/2024 4:25 PM MUSIC AUTOGRAPHER [facility] Comment:Hemolysis detected i n this specimen. Hemolysis is known to cause elevations in this analyte. Caution should be exercised in the interpretation of this result. Recommend repeat testing if clinically indicated. Blood BLOOD SPECIMEN / Unknown Lab Venipuncture / Unknown 04/01/2024 3:12 PM MUSIC AUTOGRAPHER 04/01/2024 3:36 PM MUSIC AUTOGRAPHER Cindy Garcia MD LAB - CHEMISTRY CHELI MONREAL Performing Organization Address [facility]/ZIP Co de Phone Number [address] [address], [facility] [phone] * LAB RESULTS ORDER (03/25/2024) 03/25/2024 Narrative 03/25/2024 Ordered by an unspecified provider. Scanned Document LAB - THERAPEUTIC DR UG MONITORING ORDERABLES * PTT [facility] (03/23/2024 12:25 AM MUSIC AUTOGRAPHER) Only the most recent of10 resultswithin the time period is included. APTT 35.4 23.0 - 38.4 Seconds 03/23/2024 1:31 AM MUSIC AUTOGRAPHER [facility] Comment:Suggested therapeuti c range for full dose I.V. unfractionated heparin therapy for venous thromboembolism is 71 to 109 seconds. Blood BLOOD SPECIMEN / Unknown Venipuncture / Unknown 03/23/2024 12:25 AM MUSIC AUTOGRAPHER 03/23/2024 1:05 AM MUSIC AUTOGRAPHER Ghanshyam Dewey PA-C LAB - COAGULATION OR DERABLES Performing Organization Address [facility] Co de Phone Number [address] [address], [place] [phone] * PATHOLOGY PERIPHERAL SMEAR REVIEW (03/18/2024 8:33 AM MUSIC AUTOGRAPHER) Path Review Confirmed 03/18/2024 2:44 PM MUSIC AUTOGRAPHER [facility] Blood BLOOD SPECIMEN / Unknown Lab Venipuncture / Unknown 03/18/2024 8:33 AM MUSIC AUTOGRAPHER 03/18/2024 8:46 AM MUSIC AUTOGRAPHER Narrative [facility] - 03/18/2024 2:44 PM MUSIC AUTOGRAPHER A rare blast seen. Ghanshyam Dewey PA-C LAB - PATHOLOGY/CYTO LOGY ORDERABLES Performing Organization Address City/[facility]/ZIP Co de Phone Number [place] [phone] [place] [address], [facility] [phone] * ECHO COMPLETE W CONTRAST (03/15/2024 1:47 PM MUSIC AUTOGRAPHER) IVSd 2D 1.314 cm SSM CV FUJ [...] Region Laterality Modality Ultrasound 03/15/2024 2:04 PM MUSIC AUTOGRAPHER Narrative 03/15/2024 5:17 PM MUSIC AUTOGRAPHER Summary * The left ventricle is normal [...] 2:04 PM Patient Status: I/P Study Site: [facility] Primary Location: [facility] EStudy Info Technical Quality: Adequate Exam [...] Attending Physician: Ted Soler Fellow: Josh Knight Comprehensive Ophthalmologist: Dhruv Sorto Left Ventricle Left ventricular systolic [...] on 03/15/2024 04:56 PM Procedure Note Gavi Cordreo MD - 03/15/2024 Summary * The left [...] 2:04 PM Patient Status: I/P Study Site: [facility] Primary Location: [facility] EStudy Info Technical Quality: Adequate Exam [...] Attending Physician: Ted Soler Fellow: Josh Knight Comprehensive Ophthalmologist: Dhruv Sorto Left Ventricle Left ventricular systolic [...] BLOOD OR BONE MARROW (03/15/2024 9:05 AM MUSIC AUTOGRAPHER) MDS Panel by Fish See Note Normal 024 11:26 AM MUSIC AUTOGRAPHER [employer] ([facility]) Comment: Test Performed: Myelodysplastic Syndrome (MDS) Panel by FISH (FISH MDS P) Specimen Type: Bone Marrow Indication for Testing: Myelodysplastic syndrome, unspecified RESULT Normal FISH Result Deletion 5q: not detected Monosomy 7: not detected Deletion 7q: not detected Trisomy 8: not detected Deletion 20q: not detected INTERPRETATION There was no evidence of deletion 5q31, monosomy 7, deletion 7q31, trisomy 8, or deletion 18d73-t12.1. This analysis was performed with the MDS panel probes D5S23/EGR1, D7Z1/G1E310, CEP8 ([employer]), and Del(20q) ([employer]). A total of 200 cells were scored for each probe. Cytogenomic Nomenclature (ISCN): nuc nereyda(D5S23,EGR1,D7Z1,Z1O895,D8Z2,K24Y562,MYBL2)x2[200' This result has been reviewed and approved by Nabila Gonzalez, PhD, [facility] A portion of this analysis was performed at the following location(s): [facility]2 INTERPRETIVE INFORMATION: MDS Panel by FISH This test was developed and its performance characteristics determined by [facility]. It has not been cleared or approved by the US Food and Drug Administration. This test was performed in a CLIA certified laboratory and is intended for clinical purposes. EER MDS Fish Panel See Note 2023 11:26 AM MUSIC AUTOGRAPHER [employer] ([facility]) Comment: Authorized individuals can access the [employer] Enhanced Report using the following link: [email or web address] Performed By: [facility] [address] [place] [address] Slicing Machine Tender: Uche Morley MD, PhD CLIA Number: [id number] Other BONE MARROW SPECIMEN / Unknown Collection / Unknown 03/15/2024 9:05 AM MUSIC AUTOGRAPHER 03/15/2024 9:30 AM MUSIC AUTOGRAPHER Rodo Perez MD LAB - PATHOLOG Y/CYTOLOGY ORDERABLES [employer] [facility]) [address] [place] [address], [facility] * FISH AML PANEL BLOOD OR BM RFLX PML/DANTE (03/15/2024 9:05 AM MUSIC AUTOGRAPHER) Only the most recent of2 resultswithin the time period is included. FISH AML Panel See Note Normal 03/25/2024 10:34 AM MUSIC AUTOGRAPHER [employer] ([facility]) Comment: Test Performed: Acute Myeloid Leukemia Panel by FISH (FISHAML) Specimen Type: Bone Marrow Indication for Testing: Myelodysplastic syndrome, unspecified RESULT Normal FISH Result inv(3) or t(3;3) GATA2::MECOM Fusion: not detected Deletion 5q: not detected Monosomy 7: not detected Deletion 7q: not detected t(8;21) RUNX1::UARG1K3 Fusion: not detected 11p15 (NUP98) Rearrangement: not detected 11q23 (KMT2A) Rearrangement: not detected inv(16) or t(16;16) CBFB::MYH11 Fusion: not detected INTERPRETATION There was no evidence of GATA2::MECOM (also known as RPN1-EVI1) fusion due to 3q21/3q26.2 inversion or translocation, deletion 5q31, monosomy 7, deletion 7q31, RUNX1::WRSO5T0 fusion due to translocation (8;21)(q21.3;q22), 11p15 (NUP98) rearrangement, 11q23 KMT2A (MLL) rearrangement, or CBFB::MYH11 fusion due to either 16p13.1/16q22 inversion or translocation. This analysis was performed with the AML panel probes RPN1/MECOM, D5S23/EGR1, D7Z1/U7T172, RUNX1/EDAA4O7 ([employer]), NUP98 and CBFB-MYH11 ([employer]), and MLL (KMT2A) ([employer]). A total of 200 cells were scored for each probe. Cytogenomic Nomenclature (ISCN): nuc nereyda(RPN1,MECOM,D5S23,EGR1,D7Z1,E3G598,XSPA4L1,NUP98,KMT2A,MYH11,CBF B,RUNX1)x2[200' This result has been reviewed and approved by Mundo Mejia, PhD, [facility] A portion of this analysis was performed at the following location(s): [facility] -[facility]1 INTERPRETIVE INFORMATION: AML Panel by FISH This test was developed and its performance characteristics determined by [facility]. It has not been cleared or approved by the US Food and Drug Administration. This test was performed in a CLIA certified laboratory and is intended for clinical purposes. EER AML Panel by FISH See Note 03/25/2024 10:34 AM MUSIC AUTOGRAPHER [employer] ([facility]) Comment: Authorized individuals can access the [employer] Enhanced Report using the following link: [email or web address] Performed By: [facility] [address] [place] [address] Slicing Machine Tender: Uche Morley MD, PhD CLIA Number: [id number] Other BONE MARROW SPECIMEN / Unknown Collection / Unknown 03/15/2024 9:05 AM MUSIC AUTOGRAPHER 03/15/2024 9:30 AM MUSIC AUTOGRAPHER Rodo Perez MD LAB - PATHOLOG Y/CYTOLOGY ORDERABLES [employer] [facility]) [address] [place] [address], [facility] * MYELOID MALIGNANCIES MUTATION PNL (03/15/2024 9:05 AM MUSIC AUTOGRAPHER) Only the most recent of2 resultswithin the time period is included. Interpretation Myeloid Malignancy PNL See Note 03/28/2024 2:06 PM MUSIC AUTOGRAPHER [employer] ([facility]) Comment: Myeloid Malignancies Mutation Panel NGS Submitted diagnosis or diagnosis under consideration for variant interpretation: Myelodysplastic syndrome, unspecified Note: Prior NGS testing performed on this patient (most recent [facility] accession [id number]) was reviewed in conjunction with the current case to compare molecular variants reported. The previously reported molecular variants DNMT3A, IDH1, and CUX1 are again detected in the current study. In addition, new molecular variants in STAG2, BCOR, JAK2, and CEBPA are now detected. TIER 1: Variants of Known Clinical Significance in Hematologic Malignancies 1. IDH1 c.394C>A, p.Pmi188Kkp ([id number]) VAF: 38.4% IDH1 encodes an enzyme that catalyzes the conversion of isocitrate to alpha-ketoglutarate in the citric acid cycle (23). Somatic mutations of IDH1 are found in 4-12% of patients with myelodysplastic syndrome (MDS).This mutation has been reported in hematologic malignancies (4). The prognostic significance of mutated IDH1 in MDS is uncertain (20) (27) (7) (14) (19) (32). 2. DNMT3A c.2206C>T, p.Gty840Qtk ([id number]) VAF: 42.2% DNMT3A encodes a DNA [...] stem cell transplantation (2). 3. DNMT3A c.2407A>G, p.Gpl616Rab ([id number]) VAF: 38.8% This mutation has also been reported in hematologic malignancies (4). 4. JAK2 c.1849G>T, p.Zsq447Qhy ([id number]) VAF: 14.4% JAK2 encodes a non-receptor protein tyrosine kinase that regulates STAT non cdl driver factors in response to cytokine receptor signaling (13). JAK2 mutations have been reported in 3-6% of patients with MDS (6) (15) (31). This JAK2 mutation (p.Jhc901Nvv) has also been reported in approximately 10-25% of patients with myelodysplastic/myeloproliferative neoplasms (MDS/MPN) (31) (21). This particular JAK2 mutation occurs in the pseudokinase (JH2) domain and leads to activation of the NOLAN-STAT pathway signaling. The prognostic significance of JAK2 mutations in MDS is unclear (6). 5. STAG2 c.1840C>T, p.Zet910* ([id number]) VAF: 31.7% STAG2 encodes a subunit [...] unmutated cohesin genes (29). 6. BCOR c.3649C>T, p.Ocu1011* ([id number]) VAF: 9.6% BCOR encodes a transcriptional corepressor that interacts with BCL-6 and histone deacetylases (HDACs) (5) (12). Mutations in BCOR are seen in 4% of patients with MDS (5) (11). BCOR mutations in MDS are often frameshift and nonsense mutations that result in gnin-jb-gyrfqzqg (5) (11). This mutation is predicted to alter the normal function of BCOR. BCOR mutations are associated with a higher incidence of AML transformation in MDS patients and shorter overall survival in MDS patients (5) (11) (16). 7. BCOR c.269_934del, p.Kts086Zlohv*3 ([id number]) VAF: 6.2% This mutation is also predicted to alter the normal function of BCOR. TIER 2: Variants of Unknown Clinical Significance in Hematologic Malignancies 1. CEBPA c.1074_*9del, p.*359Cysext*58 (NM_[id number]) VAF: 4.7% CEBPA encodes a protein that is a member of the basic region leucine zipper family of non cdl driver factors (18). Somatic mutations of CEBPA are [...] if any, is uncertain. 2. CUX1 c.3085G>A, p.Ovd3179All (NM_[id number]) VAF: 44.8% This variant has been rarely reported in hematologic malignancies (1) (10), to the best of our knowledge. References 1: Gustabo-Fede P, Emmanuelle B, Zhanna CLARK et al, Assessment of Minimal Residual Disease by Next Generation Sequencing in Peripheral Blood as a Complementary Tool for Personalized Transplant Monitoring in Myeloid Neoplasms. J Clin Med 2020. PMID:[id number] 2: Virginie R, Juan HERNANDEZ, Ulises Kim et al, Somatic mutations predict poor outcome in patients with myelodysplastic syndrome after hematopoietic stem-cell transplantation. J Clin Oncol 2014. PMID:[id number] 3: cBioPortal: http://www.cbioportal.org/ 4: COSMIC: https://cancer.vipin.ac.uk/cosmic 5: Yu Jasso V, Camilla Y et al, BCOR and BCORL1 mutations in myelodysplastic syndromes and related disorders. Blood 2013. PMID:79620516 6: Bill Payne, Jennifer Rubin, Víctor L et al, JAK2 Mutations Are Rare and Diverse in Myelodysplastic Syndromes: Case Series and Review of the Literature. Hematol Rep 2022. PMID:70046945 7: Jahaira GRAY, Kamla Estrada, Mary F et al, IDH1 and IDH2 mutations in myelodysplastic syndromes and role in disease progression. Leukemia 2016. PMID:[id number] 8: Day Rubalcava, Lenin MURPHY et al, Frequency, onset and clinical impact of somatic DNMT3A mutations in therapy-related and secondary acute myeloid leukemia. Haematologica 2012. PMID:29870916 9: Nuha Broussard, Idania Amador, Luanne Payne et al, CEBPA polymorphisms and mutations in patients with acute myeloid leukemia, myelodysplastic syndrome, multiple myeloma and non-Hodgkin's lymphoma. Blood Cells Mol Dis 2008. PMID:[id number] 10: Cassandra B, Cornell M, Alexis A et al, DNA methylation epitypes highlight underlying developmental and disease pathways in acute myeloid leukemia. Genome Res 2020. PMID:48895787 11: Ivan Barcenas, Jenna Estrada, Alondra DEMPSEY et al, Whole-exome sequencing identifies somatic mutations of BCOR in acute myeloid leukemia with normal karyotype. Blood 2011. PMID:17316482 12: Lin RUEDA, Yashira W, Darcie E et al, BCoR, a novel corepressor involved in BCL-6 repression. Genes Dev 2000. PMID:39107282 13: Fabian SS, Jen SJ, Amandeep LR et al, Nolan/STAT pathways in cytokine signaling and myeloproliferative disorders: approaches for targeted therapies. Genes Cancer 2010. PMID:23897785 14: Charity Pulido V, Grayson L et al, Mutations of IDH1 and IDH2 genes in early and accelerated phases of myelodysplastic syndromes and MDS/myeloproliferative neoplasms. Leukemia 2010. PMID:43704893 15: Malaika M, Catherine C, Ahsan W et al, Molecular analysis of myelodysplastic syndrome with isolated deletion of the long arm of chromosome 5 reveals a specific spectrum of molecular mutations with prognostic impact: a study on 123 patients and 27 genes. Haematologica 2017. PMID:[id number] 16: Gregoria BAR, Meliton T, Valerie Payne et al, Spectrum and prognostic relevance of truck driver teamster gene mutations in acute myeloid leukemia. Blood 2016. PMID:55914299 17: Mel Hughes, Milton P et al, Dominant-negative mutations of CEBPA, encoding CCAAT/enhancer binding protein-alpha (C/EBPalpha), in acute myeloid leukemia. Yusra Emely 2001. PMID:93001609 18: Mel Hughes, Complexity of CEBPA dysregulation in human acute myeloid leukemia. Clin Cancer Res 2009. PMID:17267540 19: Nargis Estrada, Jose M, Hugh L et al, Clinical and biological implications of truck driver teamster mutations in myelodysplastic syndromes. Blood 2013. PMID:16843050 20: Eileen MURPHY, Rajinder CA, Juju OTERO et al, Differential prognostic effect of IDH1 versus IDH2 mutations in myelodysplastic syndromes: a [facility] study of 277 patients. Leukemia 2012. PMID:94043396 21: Eileen MURPHY, George TL, Genomics of myelodysplastic syndrome/myeloproliferative neoplasm overlap syndromes. Hematology Am Soc Hematol Educ Program 2019. PMID:34924087 22: Marty C, Malika C, Heather N et al, Favorable prognostic significance of CEBPA mutations in patients with de elinor acute myeloid leukemia: a study from the Acute Leukemia [place] Association (JOSE). Blood 2002. PMID:[id number] 23: Bulmaro BENTON, Josse H, Isocitrate dehydrogenase 1 and 2 mutations in cancer: alterations at a crossroads of cellular metabolism. J Natl Cancer Inst 2010. PMID:85991557 24: Jose A, Grossmann V, Bacher U et al, [place] analysis of DNMT3A mutations in hematological malignancies. Leukemia 2013. PMID:54425546 25: Kim AH, Lisa-Pattyhajamison O, Arnulfo REINOSO et al, The role of mutations in epigenetic regulators in myeloid malignancies. Yusra Rev Cancer 2012. PMID:79943817 26: Robby F, Hubert ISSA, Efrem M et al, CEBPA mutations in 4708 patients with acute myeloid leukemia: differential impact of bZIP and TAD mutations on outcome. Blood 2021. PMID:75776851 27: Roverto Richmond, Sam J et al, IDH1 mutations in patients with myelodysplastic syndromes are associated with an unfavorable prognosis. Haematologica 2010. PMID:09040059 28: Lisa Richmond Luedeking A et al, Rare occurrence of DNMT3A mutations in myelodysplastic syndromes. Haematologica 2011. PMID:[id number] 29: Josey SLiam, Joan H et al, Genetic alterations of the cohesin complex genes in myeloid malignancies. Blood 2014. PMID:[id number] 30: Barrett MERRITT, Tono L, Jossue D et al, Recurrent DNMT3A mutations in patients with myelodysplastic syndromes. Leukemia 2011. PMID:[id number] 31: Lawrence Camargo, Juan Diego Kim, Comparison and Implications of Mutational Profiles of Myelodysplastic Syndromes, Myeloproliferative Neoplasms, and Myelodysplastic/Myeloproliferative Neoplasms: A [place]-Analysis. Front Oncol 2020. PMID:[id number] 32: Cornell N, Cornell F, Yuval N et al, IDH1 Mutation Is an Independent Inferior Prognostic Indicator for Patients with Myelodysplastic Syndromes. Acta Haematol 2017. PMID:[id number] 33: Ochoa L, Gabriella R, Hieu ALBERTS, DNMT3A in haematological malignancies. Yusra Rev Cancer 2015. PMID:[id number] This result has been reviewed and approved by Jannette Dutta M.D. Low coverage regions: Listed below are regions where the average sequencing depth (number of times a particular nucleotide is sequenced) in at least 20% of the vpoxig-cm-mscentob is less than our stringent cutoff of [...] NOTCH1; NPM1*; NRAS; NSD1; PHF6; PIGA; PPM1D; QPZO85N; PRPF8; PTPN11; RAD21; RUNX1; SAMD9; SAMD9L; SETBP1; [...] developed and its performance characteristics determined by [facility]. It has not been cleared or approved by the U.S. Food and Drug Administration. This test was performed in a CLIA-certified laboratory and is intended for clinical purposes. Myeloid Malignancy Dx Mds Unspec 03/28/2024 2:06 PM [facility] [employer] ([facility]) Myeloid Malignancy Panel Specimen Bone Marrow 03/28/2024 2:06 PM MUSIC AUTOGRAPHER [employer] [facility]) EER Myeloid Malignancy See Note 03/28/2024 2:06 PM MUSIC AUTOGRAPHER [employer] [facility]) Comment: Authorized individuals can access the [employer] Enhanced Report using the following link: [email or web address] Performed By: [facility] [address] [place] [id number] Slicing Machine Tender: Uche Morley MD, PhD CLIA Number: [id number] Other BONE MARROW SPECIMEN / Unknown Collection / Unknown 03/15/2024 9:05 AM MUSIC AUTOGRAPHER 03/15/2024 9:30 AM MUSIC AUTOGRAPHER Rodo Perez MD LAB - PATHOLOG Y/CYTOLOGY ORDERABLES [facility] [address] [place] [address], [facility] * FISH PML/DANTE PANEL (03/15/2024 9:05 AM MUSIC AUTOGRAPHER) Only the most recent of2 resultswithin the time period is included. EER PML/DANTE Translocation by Fish See Note 03/17/2024 4:41 PM MUSIC AUTOGRAPHER [employer] ([facility]) Comment: Authorized individuals can access the [employer] Enhanced Report using the following link: [email or web address] Performed By: [facility] [address] [place] [address] Slicing Machine Tender: Uche Morley MD, PhD CLIA Number: [id number] PML/DANTE Translocation by FISH See Note 03/17/2024 4:41 PM MUSIC AUTOGRAPHER [employer] ([facility]) Comment: Test Performed: PML-DANTE Translocation by [...] analysis was performed at the following location(s): [facility] CG-WA#2 INTERPRETIVE INFORMATION: PML/DANTE Translocation by FISH This test was developed and its performance characteristics determined by [facility]. It has not been cleared or approved by the US Food and Drug Administration. This test was performed in a CLIA certified laboratory and is intended for clinical purposes. Other BONE MARROW SPECIMEN / Unknown Collection / Unknown 03/15/2024 9:05 AM MUSIC AUTOGRAPHER 03/15/2024 9:30 AM MUSIC AUTOGRAPHER Rodo Perez MD LAB - PATHOLOG Y/CYTOLOGY ORDERABLES [facility]) [address] [place] [address], [facility] * FLOW CYTOMETRY BLOOD PROFILE (03/14/2024 10:32 AM MUSIC AUTOGRAPHER) Case Report Flow Cytometry Case: [id number] Authorizing Provider: Ghanshyam Dewey PA-C Collected: 03/14/2024 10:32 AM Ordering Location: [facility] AC[facility] Received: 03/14/2024 01:49 PM Pathologist: Angeles Rosado MD Specimen: Blood 03/14/2024 4:58 PM [facility] LAB Final Diagnosis Peripheral blood, flow cytometric immunophenotypic analysis: - 1.2% myeloblasts detected - No evidence of a monoclonal B-cell population - See interpretation 03/14/2024 4:58 PM [facility] LAB Flow Cytometry Results Differential Result Comment WBC Count /uL 1,200 Total Viability % 100.0 Lymphocytes % 80 Dim CD45 Region % 4 Monocytes % 4 Granulocytes % 13 03/14/2024 4:58 PM [facility] PATH[facility] LAB Flow Cytometry Interpretation Viability: 100% B-cells: polytypic, kappa:lambda ratio 1.1:1. Blasts: 1.2% of events are myeloblasts. Monocytes are mature. A peripheral blood smear prepared from the flow cytometry specimen has been reviewed for manager quality improvement purposes. 03/14/2024 4:58 PM [facility] PATH[facility]Y LAB Reason for test MDS (myelodysplastic syndrome) (HCC) 238.75 03/14/2024 4:58 PM [facility] PATH[facility] LAB Client Specimen ID # [id number] 03/14/2024 4:58 PM [facility] PATH[facility] LAB Pathologist Location at [facility] 03/14/2024 4:58 PM [facility] PATH[facility] LAB Disclaimer Test performed at [facility], [address] [place] [address], [id number]. *The established laboratory minimum viability is 70%. [...] high complexity clinical testing. 03/14/2024 4:58 PM [facility] PATH[facility] LAB Embedded Images 4:58 PM [facility] LAB Number of markers 19 were performed. A-2 Flow CD10 A-3 Flow CD13 A-5 Flow CD20 A-11 Flow CD2 A-13 Flow CD14 A-16 Flow CD117 A-17 Flow CD11b A-18 Flow CD11c A-1 Flow CD5 A-4 Flow CD19 A-6 Flow CD33 A-7 Flow CD34 A-8 Flow CD45 A-12 Flow CD7 A-14 Flow CD56 A-15 Flow CD64 A-9 Willits+CD19+ A-10 Lambda+CD19+ A-19 Flow HLA-DR 03/14/2024 4:58 PM [facility] PATH[facility] LAB Blood BLOOD SPECIMEN / Unknown Lab Venipuncture / Unknown 03/14/2024 10:32 AM MUSIC AUTOGRAPHER 03/14/2024 1:49 PM MUSIC AUTOGRAPHER Ghanshyam Dewey PA-C LAB - PATHOLOGY/CYTO LOGY ORDERABLES [facility] PATHOLOGY LAB [address] [place] [address]. [place] [address], [facility] [phone] * CYTOMEGALOVIRUS (CMV) QUANTITATIVE PLASMA (03/13/2024 11:26 PM MUSIC AUTOGRAPHER) Pathologist [facility] [place] CMV Quant by PCR, Interp Not detected Not detected 03/14/2024 9:00 AM MUSIC AUTOGRAPHER [facility] Blood BLOOD SPECIMEN / Unknown Venipuncture / Unknown 03/13/2024 11:26 PM MUSIC AUTOGRAPHER 03/13/2024 11:37 PM MUSIC AUTOGRAPHER Narrative [facility] MICROBIOLOGY - 03/14/2024 9:00 AM MUSIC AUTOGRAPHER The Cytomegalovirus (CMV) DNA analysis utilized a [...] Soler MD LAB - CHEMISTRY OR DERABLES [facility] MICROBIOLOGY [address] [place] [phone] * QUINN-RICHMOND VIRUS QUANT BLOOD STL (03/13/2024 11:26 PM MUSIC AUTOGRAPHER) [facility] EBV Quant by PCR, Interp Not detected Not detected 03/14/2024 8:56 AM [facility] MICROBIOLOGY Specimen Type Plasma 03/14/2024 8:56 AM [facility] Blood BLOOD SPECIMEN / Unknown Venipuncture / Unknown 03/13/2024 11:26 PM MUSIC AUTOGRAPHER 03/13/2024 11:37 PM MUSIC AUTOGRAPHER Narrative [facility] MICROBIOLOGY - 03/14/2024 8:56 AM MUSIC AUTOGRAPHER The Quinn-Ricmhond viral (EBV) DNA analysis utilized a plasma [...] Soler MD LAB - CHEMISTRY OR DERABLES [facility] MICROBIOLOGY [address] [place] [address], [facility] [phone] * D-DIMER (03/13/2024 11:26 PM MUSIC AUTOGRAPHER) D-Dimer Quantitative <0.27 <=0.50 mcg/mL FEU 03/14/2024 12:00 AM MUSIC AUTOGRAPHER [facility] Comment: In the absence [...] Unknown Venipuncture / Unknown 03/13/2024 11:26 PM MUSIC AUTOGRAPHER 03/13/2024 11:37 PM MUSIC AUTOGRAPHER Ted Soler MD LAB - COAGULATION ORDERABLES [address] [address], [facility] [phone] * FIBRINOGEN ACTIVITY (03/13/2024 11:26 PM MUSIC AUTOGRAPHER) Pathologist [facility] [place] Fibrinogen Clauss 362 200 - 400 mg/dL 03/13/2024 11:59 PM MUSIC AUTOGRAPHER [facility] Blood BLOOD SPECIMEN / Unknown Venipuncture / Unknown 03/13/2024 11:26 PM MUSIC AUTOGRAPHER 03/13/2024 11:37 PM MUSIC AUTOGRAPHER Ted Soler MD LAB - COAGULATION ORDERABLES [facility] [address] [place] [address], [facility] [phone] * FISH AML+MDS PANEL BLOOD OR BONE MARROW (03/04/2024 4:13 PM MUSIC AUTOGRAPHER) [facility] FISH AML with MDS, Therapy-Rltd AML See Note Normal 03/19/2024 4:32 PM MUSIC AUTOGRAPHER [employer] ([facility]) Comment: Test Performed: Acute Myelogenous Leukemia [...] with the Therapy-Related AML panel probes D5S23/EGR1, D7Z1/C1O760, and MLL (KMT2A) ([employer]). A total of 200 cells were scored for each probe. Cytogenomic Nomenclature (ISCN): nuc nereyda(D5S23,EGR1,D7Z1,C2L026,KMT2A)x2[200' This result has been reviewed and approved by Charles Pablo MD, [facility] INTERPRETIVE INFORMATION: AML with MDS, Therapy-Related AML, FISH This test was developed and its performance characteristics determined by [facility]. It has not been cleared or approved by the US Food and Drug Administration. This test was performed in a CLIA certified laboratory and is intended for clinical purposes. EER AML with MDS, Therapy-Rltd AML FISH See Note 03/19/2024 4:32 PM MUSIC AUTOGRAPHER [facility] [employer] ([facility]) Comment: Authorized individuals can access the [employer] Enhanced Report using the following link: [email or web address] Performed By: [facility] [address] [place] [address] Slicing Machine Tender: Uche Morley MD, PhD CLIA Number: [id number] Other BLOOD SPECIMEN / Unknown Collection / Unknown 03/04/2024 4:13 PM MUSIC AUTOGRAPHER 03/04/2024 4:23 PM MUSIC AUTOGRAPHER Cindy Garcia MD LAB - PATHOLOGY/CYTO LOGY ORDERABLES [facility] [employer] [facility]) [address] [place] [address], [facility] * HLA TYPING LOW/HIGH RESOLUTION DPB1 (03/04/2024 4:13 PM MUSIC AUTOGRAPHER) Typ DNA LR DPB1 [place]lele #1 *04 04/29/2024 2:56 PM MUSIC AUTOGRAPHER [facility] ([facility]) Typ DNA LR DPB1 [place]lele #2 *11 04/29/2024 2:56 PM MUSIC AUTOGRAPHER [facility] ([facility]) Typ DNA HR DPB1 [place]lele #1 *04:01:01G 04/29/2024 2:56 PM MUSIC AUTOGRAPHER [facility] ([facility]) Typ DNA HR DPB1 [place]lele #2 *11:01:01G 04/29/2024 2:56 PM MUSIC AUTOGRAPHER [facility] ([facility]) Test Methodology RTPCR/NGS 04/29/19 2:56 PM MUSIC AUTOGRAPHER [facility] ([facility]) Date Results Entered [id number] 04/29/2024 2:56 PM MUSIC AUTOGRAPHER [facility] ([facility]) Comment: Methodology - Next Generation Sequencing This test was developed and its performance characteristics determined by the [facility]. It has not been cleared [...] high complexity clinical laboratory testing. CLIA ID# [id number] Performed at: [facility], [address] [place] [phone] Kiss Setter Hand: Sandeep Jerry, Ph.D., D([facility]), Blood BLOOD SPECIMEN / Unknown Lab Venipuncture / Unknown 03/04/2024 4:13 PM MUSIC AUTOGRAPHER 03/05/2024 9:56 AM MUSIC AUTOGRAPHER Cindy Garcia MD LAB - BLOOD BANK ORD ERABLES [facility] ([facility]) [address] [place], [place] [address] [place] [address] * HLA TYPING DNA LOW RESOLUTION DR,DQ (03/04/2024 4:13 PM MUSIC AUTOGRAPHER) DR DQ Low Resolution DRB1-1 *07 04/29/2024 2:56 PM MUSIC AUTOGRAPHER [facility] ([facility]) DR DQ Low Resolution DQB1-1 *02 04/29/2024 2:56 PM MUSIC AUTOGRAPHER [facility] ([facility]) DR DQ Low Resolution DRB3-1 Negative 04/29/2024 2:56 PM MUSIC AUTOGRAPHER [facility] ([facility]) DR DQ Low Resolution DRB3-2 Negative 04/29/2024 2:56 PM MUSIC AUTOGRAPHER [facility] ([facility]) DR DQ Low Resolution DRB4-1 *01 04/29/2024 2:56 PM MUSIC AUTOGRAPHER [facility] ([facility]) DR DQ Low Resolution DRB4-2 Negative 04/29/2024 2:56 PM MUSIC AUTOGRAPHER [facility] ([facility]) DR DQ Low Resolution DRB5-1 Negative 04/29/2024 2:56 PM MUSIC AUTOGRAPHER [facility] ([facility]) DR DQ Low Resolution DRB5-2 Negative 04/29/2024 2:56 PM MUSIC AUTOGRAPHER [facility] ([facility]) DR DQ Low Resolution Methodology Real Time PCR 04/29/2024 2:56 PM MUSIC AUTOGRAPHER [facility] ([facility]) DR DQ Low Resolution test date [id number] 04/29/2024 2:56 PM MUSIC AUTOGRAPHER [facility] ([facility]) Comment: Methodology - Real-Time PCR This test was developed and its performance characteristics determined by the [facility]. It has not been cleared [...] high complexity clinical laboratory testing. CLIA ID# [id number] Performed at: [facility], [address] [place] [phone] Kiss Setter Hand: Sandeep Jerry, Ph.D., D([facility]), Blood BLOOD SPECIMEN / Unknown Lab Venipuncture / Unknown 03/04/2024 4:13 PM MUSIC AUTOGRAPHER 03/05/2024 9:56 AM MUSIC AUTOGRAPHER Cindy Garcia MD LAB - BLOOD BANK ORD ERABLES [facility] ([facility]) [address] [place] [address] * HLA TYPING DNA LOW RESOLUTION A,B,C (03/04/2024 4:13 PM MUSIC AUTOGRAPHER) ABC DNA A1 *02 04/29/2024 2:56 PM MUSIC AUTOGRAPHER [facility] ([facility]) ABC DNA A2 *30 04/29/2024 2:56 PM MUSIC AUTOGRAPHER [facility] ([facility]) ABC DNA B1 *13 04/29/2024 2:56 PM MUSIC AUTOGRAPHER [facility] ([facility]) ABC DNA B2 *44 04/29/2024 2:56 PM MUSIC AUTOGRAPHER [facility] ([facility]) ABC DNA BW1 4 04/29/2024 2:56 PM MUSIC AUTOGRAPHER [facility] ([facility]) ABC DNA BW2 4 04/29/2024 2:56 PM MUSIC AUTOGRAPHER [facility] ([facility]) ABC DNA C1 *06 04/29/2024 2:56 PM MUSIC AUTOGRAPHER [facility] ([facility]) ABC DNA C2 *16 04/29/2024 2:56 PM MUSIC AUTOGRAPHER [facility] ([facility]) ABC DNA Methodology Real Time PCR 04/29/2024 2:56 PM MUSIC AUTOGRAPHER [facility] ([facility]) ABC DNA Test Date [id number] 2:56 PM MUSIC AUTOGRAPHER [facility] ([facility]) Comment: Methodology - Real-Time PCR This test was developed and its performance characteristics determined by the [facility]. It has not been cleared [...] high complexity clinical laboratory testing. CLIA ID# [id number] Performed at: [facility], [address] [place] [phone] Kiss Setter Hand: Sandeep Jerry, Ph.D., D([facility]), Blood BLOOD SPECIMEN / Unknown Lab Venipuncture / Unknown 03/04/2024 4:13 PM MUSIC AUTOGRAPHER 03/05/2024 9:56 AM MUSIC AUTOGRAPHER Cindy Garcia MD LAB - BLOOD BANK ORD ERABLES [facility] ([facility]) [address] [place] [address] * HLA TYPING DNA HIGH RESOLUTION DR (03/04/2024 4:13 PM MUSIC AUTOGRAPHER) Blood BLOOD SPECIMEN / Unknown Lab Venipuncture / Unknown 03/04/2024 4:13 PM MUSIC AUTOGRAPHER 03/05/2024 9:56 AM MUSIC AUTOGRAPHER Narrative [facility] ([employer]) - 04/29/2024 4:00 PM MUSIC AUTOGRAPHER See Scanned Report Cindy Garcia MD LAB - BLOOD BANK ORD ERABLES Performing Organization Address City/[facility]/ZIP Co de Phone Number [facility] ([facility]) [address] * HLA TYPING DNA HIGH RESOLUTION DQ (03/04/2024 4:13 PM MUSIC AUTOGRAPHER) Blood BLOOD SPECIMEN / Unknown Lab Venipuncture / Unknown 03/04/2024 4:13 PM MUSIC AUTOGRAPHER 03/05/2024 9:56 AM MUSIC AUTOGRAPHER Narrative [facility] ([employer]) - 04/29/2024 4:00 PM MUSIC AUTOGRAPHER See Scanned Report Cindy Garcia MD LAB - BLOOD BANK ORD ERABLES Performing Organization Address [facility] Co de Phone Number [facility] ([employer]) [address] * HLA TYPING DNA HIGH RESOLUTION B (03/04/2024 4:13 PM MUSIC AUTOGRAPHER) Blood BLOOD SPECIMEN / Unknown Lab Venipuncture / Unknown 03/04/2024 4:13 PM MUSIC AUTOGRAPHER 03/05/2024 9:56 AM MUSIC AUTOGRAPHER Narrative [facility] ([employer]) - 04/29/2024 4:00 PM MUSIC AUTOGRAPHER See Scanned Report Cindy Garcia MD LAB - BLOOD BANK ORD ERABLES Performing Organization Address City/[facility]/ZIP Co de Phone Number [facility] ([facility]) [address] * HLA TYPING DNA HIGH RESOLUTION A (03/04/2024 4:13 PM MUSIC AUTOGRAPHER) Blood BLOOD SPECIMEN / Unknown Lab Venipuncture / Unknown 03/04/2024 4:13 PM MUSIC AUTOGRAPHER 03/05/2024 9:56 AM MUSIC AUTOGRAPHER Narrative [facility] ([facility]) - 04/29/2024 4:01 PM MUSIC AUTOGRAPHER See Scanned Report Cindy Garcia MD LAB - BLOOD BANK ORD ERABLES Performing Organization Address City/[facility]/ZIP Co de Phone Number [facility] ([facility]) [address] * HLA TYPING DNA HIGH RESOLUTION C (03/04/2024 4:13 PM MUSIC AUTOGRAPHER) Blood BLOOD SPECIMEN / Unknown Lab Venipuncture / Unknown 03/04/2024 4:13 PM MUSIC AUTOGRAPHER 03/05/2024 9:56 AM MUSIC AUTOGRAPHER Narrative [facility] ([facility]) - 04/29/2024 4:01 PM MUSIC AUTOGRAPHER See Scanned Report Cindy Garcia MD LAB - BLOOD BANK ORD ERABLES Performing Organization Address [facility] Co de Phone Number [facility] ([facility]) [address] * CHROMOSOME ANALYSIS LEUKEMIA BLD (03/04/2024 4:13 PM MUSIC AUTOGRAPHER) [facility] Chromosome Analysis Leukemic Blood See Note Normal 03/23/2024 12:39 PM MUSIC AUTOGRAPHER [employer] ([facility]) Comment: Test Performed: Chromosome Analysis Specimen [...] AML/PML and TAML MDS performed under [facility] accessions [id number] and [id number] were NORMAL. This result has been reviewed and approved by Margaret Roberson, PhD, [facility] INTERPRETIVE INFORMATION: Chromosome Analysis, Leukemic Blood This test was developed and its performance characteristics determined by [facility]. It has not been cleared or approved by the US Food and Drug Administration. This test was performed in a CLIA certified laboratory and is intended for clinical purposes. EER Chromosome Analysis Leukemic See Note 03/23/2024 12:39 PM MUSIC AUTOGRAPHER [facility] [employer] [facility]) Comment: Authorized individuals can access the [employer] Enhanced Report using the following link: [email or web address] Performed By: [facility] [address] [place] [address] Slicing Machine Tender: Uche Morley MD, PhD CLIA Number: [id number] Blood BLOOD SPECIMEN / Unknown Lab Venipuncture / Unknown 03/04/2024 4:13 PM MUSIC AUTOGRAPHER 03/22/2024 5:28 PM MUSIC AUTOGRAPHER Cindy Garcia MD LAB - PATHOLOGY/CYTO LOGY ORDERABLES [facility] [employer] [facility]) [address] * HIV-1 HIV-2 ANTIBODY + HIV P24 AG PANEL (New on 08/24) (03/04/2024 4:13 PM MUSIC AUTOGRAPHER) HIV Antigen/Antibod y 1 & 2 Non-reacti ve Non-react carlos 03/04/2024 5:12 PM MUSIC AUTOGRAPHER [facility] Comment:No Laboratory eviden ce of HIV infection. Blood BLOOD SPECIMEN / Unknown Lab Venipuncture / Unknown 03/04/2024 4:13 PM MUSIC AUTOGRAPHER 03/04/2024 4:23 PM MUSIC AUTOGRAPHER Cindy Garcia MD LAB - CHEMISTRY CHELI Rao Organization Address City/State/ZIP Co de Phone Number [facility] [address] [place] [address], [facility] [phone] * BCR-ABL1 CML+AML PCR QUANT PNL (03/04/2024 4:13 PM MUSIC AUTOGRAPHER) Interpretation TNP 03/13/2024 5:08 PM MUSIC AUTOGRAPHER [facility] ([facility]) Comment: Unable to obtain results. Repeated efforts to analyze this specimen have been unsuccessful. LOW CONTROL GENE COPY NUMBER INDICATED SPECIMEN DEGRADATION. Director Review Comment 5:08 PM [facility] ([facility]) Comment: Dawood Sarabia, PhD, [facility] Director, Molecular Oncology [facility] [place] [address] Background Comment 03/13/2024 5:08 PM MUSIC AUTOGRAPHER [facility] ([facility]) Comment: This assay can detect three [...] as indicated. Methodology Comment 03/13/2024 5:08 PM [facility] ([facility]) Comment: Total RNA is isolated from [...] developed and its performance characteristics determined [facility]. It has not been cleared or approved by the Food and Drug Administration. Blood BLOOD SPECIMEN / Unknown Lab Venipuncture / Unknown 03/04/2024 4:13 PM MUSIC AUTOGRAPHER 03/04/2024 4:24 PM MUSIC AUTOGRAPHER Narrative [facility] ([facility]) - 03/13/2024 5:08 PM MUSIC AUTOGRAPHER Performed at: 01 - [facility] [address] [employer] [facility], [place] [id number] Kiss Setter Hand: Cinthya [facility], Phone: [phone] Performed at: 02 - [facility] [address] [employer] [facility] [place] [phone] Kiss Setter Hand: Cinthya [facility], Phone: [phone] Cindy Garcia MD LAB - CHEMISTRY CHELI MONREAL [facility] ([facility]) [address] [place] [address] * TSH REFLEX FREE T4 (03/04/2024 4:13 PM MUSIC AUTOGRAPHER) [facility] TSH 0.961 0.350 - 4.940 uIU/mL 03/04/2024 5:29 PM MUSIC AUTOGRAPHER [facility] Blood BLOOD SPECIMEN / Unknown Lab Venipuncture / Unknown 03/04/2024 4:13 PM MUSIC AUTOGRAPHER 03/04/2024 4:27 PM MUSIC AUTOGRAPHER Cindy Garcia MD LAB - CHEMISTRY CHELI MONREAL [address] [address], [facility] [phone] * RHEUMATOID FACTOR BLOOD QUANTITATIVE (03/04/2024 4:13 PM MUSIC AUTOGRAPHER) [facility] Rheumatoid Factor <15 <30 IU/mL 03/04/2024 4:57 PM MUSIC AUTOGRAPHER [facility] Rheumatoid Factor Screen Negative Negative 03/04/2024 4:57 PM MUSIC AUTOGRAPHER [facility] Blood BLOOD SPECIMEN / Unknown Lab Venipuncture / Unknown 03/04/2024 4:13 PM MUSIC AUTOGRAPHER 03/04/2024 4:23 PM MUSIC AUTOGRAPHER Cindy Garcia MD LAB - CHEMISTRY CHELI MONREAL [place] [id number] [place] [address], [facility] [phone] * CYTOMEGALOVIRUS ANTIBODY IGG BLOOD (03/04/2024 4:13 PM MUSIC AUTOGRAPHER) Cytomegalovirus Antibody IgG <0.20 <=0.70 U/mL 03/05/2024 9:27 PM MUSIC AUTOGRAPHER [employer] ([facility]) Comment: INTERPRETIVE INFORMATION: Cytomegalovirus Antibody, IgG 0.59 [...] laboratory at the same time. Performed By: [facility] [address] [place] [address] Slicing Machine Tender: Uche Morley MD, PhD CLIA Number: [id number] Blood BLOOD SPECIMEN / Unknown Lab Venipuncture / Unknown 03/04/2024 4:13 PM MUSIC AUTOGRAPHER 03/04/2024 4:23 PM MUSIC AUTOGRAPHER Cindy Garcia MD LAB - CHEMISTRY CHELI MONREAL [facility]) [address] * C-REACTIVE PROTEIN (03/04/2024 4:13 PM MUSIC AUTOGRAPHER) [facility] C-Reactive Protein 0.5 <=0.5 mg/dL 03/04/2024 4:56 PM MUSIC AUTOGRAPHER [facility] Blood BLOOD SPECIMEN / Unknown Lab Venipuncture / Unknown 03/04/2024 4:13 PM MUSIC AUTOGRAPHER 03/04/2024 4:27 PM MUSIC AUTOGRAPHER Cindy Mason Jose MARTINEZ LAB - CHEMISTRY CHELI MONREAL Performing Organization Address City/[facility]/ZIP Co de Phone Number [facility] [address] [address], [facility] [phone] * MARLINE BLOOD SCREEN W/REFLEX TITER (03/04/2024 4:13 PM MUSIC AUTOGRAPHER) [facility] MARLINE IgG None Detected None Detected 03/05/2024 11:42 PM MUSIC AUTOGRAPHER [facility]) Comment: If suspicion of connective tissue disease is strong and MARLINE EIA is negative, consider testing for MARLINE by IFA ([id number]). INTERPRETIVE INFORMATION: Anti-Nuclear Antibodies (MARLINE), IgG by TOÑA Antinuclear Antibodies (MARLINE), IgG by TOÑA: MARLINE specimens are screened using enzyme-linked immunosorbent assay (TOÑA) methodology. All TOÑA results reported as Detected are further tested by indirect fluorescent assay (IFA) using HEp-2 substrate with an IgG-specific conjugate. The MARLINE TOÑA screen is designed to detect antibodies against dsDNA, histones, SS-A (Ro), SS-B (La), Pimentel, Pimentel/MUSIC AUTOGRAPHER, Scl-70, Mey-1, centromeric proteins, other antigens extracted from the HEp-2 cell nucleus. MARLINE TOÑA assays have been reported to have lower sensitivities than MARLINE IFA for systemic autoimmune rheumatic diseases (SARD). Negative results do not necessarily rule out SARD. Performed By: [facility] [address] [place] [address] Slicing Machine Tender: Uche Morley MD, PhD CLIA Number: [id number] Blood BLOOD SPECIMEN / Unknown Lab Venipuncture / Unknown 03/04/2024 4:13 PM MUSIC AUTOGRAPHER 03/04/2024 4:23 PM MUSIC AUTOGRAPHER Cindy Garcia MD LAB - CHEMISTRY CHELI MONREAL Performing Organization Address [facility] de Phone Number [facility] [employer] [facility]) [address] * ZINC BLOOD (03/04/2024 4:13 PM MUSIC AUTOGRAPHER) Zinc 62.4 60.0 - 120.0 ug/dL 03/06/2024 6:35 AM MUSIC AUTOGRAPHER [facility] [employer] ([facility]) Comment: INTERPRETIVE INFORMATION: Zinc, Serum or [...] developed and its performance characteristics determined by [facility]. It has not been cleared or approved by the US Food and Drug Administration. This test was performed in a CLIA certified laboratory and is intended for clinical purposes. Performed By: [facility] [address] [place] [address] Slicing Machine Tender: Uche Morley MD, PhD CLIA Number: [id number] Blood BLOOD SPECIMEN / Unknown Lab Venipuncture / Unknown 03/04/2024 4:13 PM MUSIC AUTOGRAPHER 03/04/2024 4:23 PM MUSIC AUTOGRAPHER Cindy Garcia MD LAB - CHEMISTRY CHELI MONREAL Performing Organization Address [facility] Co de Phone Number [facility]) [address] * COPPER BLOOD (03/04/2024 4:13 PM MUSIC AUTOGRAPHER) Copper 108.5 70.0 - 140.0 ug/dL 03/06/2024 6:35 AM MUSIC AUTOGRAPHER [facility]) Comment: INTERPRETIVE INFORMATION: Copper, Serum or [...] developed and its performance characteristics determined by [facility]. It has not been cleared or approved by the US Food and Drug Administration. This test was performed in a CLIA certified laboratory and is intended for clinical purposes. Performed By: [facility] [address] [place] [address] Slicing Machine Tender: Uche Morley MD, PhD CLIA Number: [id number] Blood BLOOD SPECIMEN / Unknown Lab Venipuncture / Unknown 03/04/2024 4:13 PM MUSIC AUTOGRAPHER 03/04/2024 4:23 PM MUSIC AUTOGRAPHER Cindy Garica MD LAB - CHEMISTRY ORDE JOCELIN [facility]) [address] [place], [place] [address] * ERYTHROCYTE SEDIMENTATION RATE (03/04/2024 4:13 PM MUSIC AUTOGRAPHER) [facility] Erythrocyte Sedimentation Rate Westergren 14 0 - 20 MM/HR 03/04/2024 5:10 PM MUSIC AUTOGRAPHER [facility] Blood BLOOD SPECIMEN / Unknown Lab Venipuncture / Unknown 03/04/2024 4:13 PM MUSIC AUTOGRAPHER 03/04/2024 4:27 PM MUSIC AUTOGRAPHER Cindy Garcia MD LAB - HEMATOLOGY ORD ERABLES [address] [address], [facility] [phone] * HEPATITIS B SURFACE ANTIBODY (03/04/2024 4:13 PM MUSIC AUTOGRAPHER) [facility] Hepatitis B Virus Surface Antibody Non-react carlos Non-react carlos 03/04/2024 5:12 PM MUSIC AUTOGRAPHER [facility] Comment: < 8 mIU/mL Hepatitis B surface Antibody (HBsAb). Nonreactive for HBsAb - individual is considered not immune to Hepatitis B Virus infection. Hepatitis B Surface Antibody Quantitative 0.3 <8.0 mIU/mL 03/04/2024 5:12 PM MUSIC AUTOGRAPHER [facility] Comment: Hepatitis B Surface Antibody Numeric Result Interpretation: Nonreactive: <8.0 mIU/mL Indeterminate: 8.0 - 12.0 mIU/mL Reactive: >12.0 mIU/mL Blood BLOOD SPECIMEN / Unknown Lab Venipuncture / Unknown 03/04/2024 4:13 PM MUSIC AUTOGRAPHER 03/04/2024 4:23 PM MUSIC AUTOGRAPHER Cindy Garcia MD LAB - CHEMISTRY CHELI MONREAL Performing Organization Address City/[facility]/ZIP Co de Phone Number [address] [address], [facility] [phone] * HEPATITIS B CORE ANTIBODY TOTAL (03/04/2024 4:13 PM MUSIC AUTOGRAPHER) [facility] HBc Antibody Total Non-reacti ve Non-reacti ve 03/04/2024 5:12 PM MUSIC AUTOGRAPHER [facility] Blood BLOOD SPECIMEN / Unknown Lab Venipuncture / Unknown 03/04/2024 4:13 PM MUSIC AUTOGRAPHER 03/04/2024 4:23 PM MUSIC AUTOGRAPHER Cindy Garcia MD LAB - CHEMISTRY CHELI MONREAL [address] [address], [facility] [phone] * FOLATE (03/04/2024 4:13 PM MUSIC AUTOGRAPHER) [facility] Folate 17.7 7.0 - 31.4 ng/mL 03/04/2024 5:29 PM MUSIC AUTOGRAPHER [facility] Blood BLOOD SPECIMEN / Unknown Lab Venipuncture / Unknown 03/04/2024 4:13 PM MUSIC AUTOGRAPHER 03/04/2024 4:27 PM MUSIC AUTOGRAPHER Cindy Garcia MD LAB - CHEMISTRY CHELI MONREAL [address] [address], [place] [phone] * VITAMIN B12 (03/04/2024 4:13 PM MUSIC AUTOGRAPHER) Vitamin B12 524 213 - 816 pg/mL 03/04/2024 5:29 PM MUSIC AUTOGRAPHER [facility] Blood BLOOD SPECIMEN / Unknown Lab Venipuncture / Unknown 03/04/2024 4:13 PM MUSIC AUTOGRAPHER 03/04/2024 4:27 PM MUSIC AUTOGRAPHER Cindy Garcia MD LAB - CHEMISTRY CHELI MONREAL Performing Organization Address [facility]/ZIP Co de Phone Number [address] [address], [place] [phone] * (ABNORMAL) IRON + TRANSFERRIN PANEL [w/Transferrin Sat % + TIBC] (03/04/2024 4:13 PM MUSIC AUTOGRAPHER) Iron 31(L) 50 - 175 ug/dL 03/04/2024 4:53 PM MUSIC AUTOGRAPHER [facility] Transferrin 257 174 - 382 mg/dL 03/04/2024 4:53 PM MUSIC AUTOGRAPHER [facility] Transferrin Saturation % 10(L) 16 - 50 % 03/04/2024 4:53 PM MUSIC AUTOGRAPHER [facility] TIBC Calculated 321 240 - 450 ug/dL 03/04/2024 4:53 PM MUSIC AUTOGRAPHER [facility] Blood BLOOD SPECIMEN / Unknown Lab Venipuncture / Unknown 03/04/2024 4:13 PM MUSIC AUTOGRAPHER 03/04/2024 4:23 PM MUSIC AUTOGRAPHER Cindy Garcia MD LAB - CHEMISTRY CHELI MONREAL [address] [address], [place] [phone] * HEPATITIS C ANTIBODY (03/04/2024 4:13 PM MUSIC AUTOGRAPHER) Pathologist [facility] Hepatitis C Antibody Non-react carlos Non-reac tive 03/04/2024 5:12 PM MUSIC AUTOGRAPHER [facility] Comment:Hepatitis C Antibody screen indicates no serologic evidence of past or current infection with Hepatitis C Virus. Patients with unexplained liver disease who are immunocompromised or suspected of having acute Hepatitis C infection may benefit from Nucleic Acid Test (YUSRA) for Hepatitis C Viral RNA to confirm Hepatitis C status. Blood BLOOD SPECIMEN / Unknown Lab Venipuncture / Unknown 03/04/2024 4:13 PM MUSIC AUTOGRAPHER 03/04/2024 4:23 PM MUSIC AUTOGRAPHER Cindy Garcia MD LAB - CHEMISTRY CHELI MONREAL [facility] [address] [place] [address], [place] [phone] * (ABNORMAL) FERRITIN (03/04/2024 4:13 PM MUSIC AUTOGRAPHER) [facility] Ferritin 21(L) 22 - 275 ng/mL 03/04/2024 5:12 PM MUSIC AUTOGRAPHER [facility] Blood BLOOD SPECIMEN / Unknown Lab Venipuncture / Unknown 03/04/2024 4:13 PM MUSIC AUTOGRAPHER 03/04/2024 4:23 PM MUSIC AUTOGRAPHER Cindy Garcia MD LAB - CHEMISTRY CHELI MONREAL [facility] [address] [place] [address], [place] [phone] from Last 3 Months Advance Directives * Full Code (Latest Code Status on File) Date Activated Date Inactivated Comments 03/13/2024 9:41 PM 03/23/2024 2:56 PM Care Teams Accounts Payable Bookkeeper Relationship Specialty Start Date End Date Timothy Banks MD [address] [place] [address] PCP - General 10/19/18 Cindy Garcia MD [address] [place] [address] Engraved Roller Inspector/Oncologis t Hematology and Oncology 03/24/24
== END 2024-06-03 14:14 | disposition home or self-care (01) ==
LOC: ANHLAB 14:14
PROVIDERS: PCP Family Medicine; Visit Provider Internal Medicine Hematology & Oncology
DX: C92.00 Acute myeloblastic leukemia, not having achieved remission (principal)
CPT/HCPCS: 36415; 80048; 85025; 85055

== ENCOUNTER 2024-06-10 08:34 | Outpatient (CLI) | payer MEDICARE, SELFPAY ==
[2024-06-10 08:55] LABS: Hematocrit 37.7 % (42.0-52.0); Hemoglobin 12.2 g/dL (14.0-18.0); Immature Granulocyte Absolute 0.04 K/mm3 (0.00-0.031); Immature Granulocyte Percent A 5.4 % (0-0.5); Lymphocytes Absolute Auto 0.47 K/mm3 (0.9-3.2); Lymphocytes Percent Auto 63.5 % (18.3-44.2); Mean Corpuscular HGB Conc 32.4 g/dl (32-36); Mean Corpuscular Hemoglobin 29.7 pg (26-34); Mean Corpuscular Volume 91.7 fl (80-100); Monocytes Percent Auto 1.4 % (2.6-8.5); Neutrophils Absolute Auto 0.2 K/mm3 (1.3-6.7); Neutrophils Percent Auto 29.7 % (45.5-73.1); Platelet Count Result 106 k/mm3 (150-375); Red Blood Count 4.11 M/mm3 (4.6-6.20); Red Cell Distribution Width 20.2 % (11.5-14.5)
[2024-06-10 09:03] LABS: White Blood Count 0.7 K/mm3 (4.5-10.0)
[2024-06-10 09:11] LABS: Blood Urea Nitrogen 12 mg/dL (8-26); Carbon Dioxide 26 mmol/L (22-30); Chloride 106 mmol/L (98-109); Estimated Glomerular Filt Rate 49; Glucose 150 mg/dL (70-105); Ionized Calcium (POC) 1.25 mmol/L (1.11-1.31); Potassium 3.8 mmol/L (3.5-4.9); Sodium 143 mmol/L (138-146)
== END 2024-06-10 08:35 | disposition home or self-care (01) ==
LOC: ANHLAB 08:35
PROVIDERS: PCP Family Medicine; Visit Provider Internal Medicine Hematology & Oncology
DX: C92.00 Acute myeloblastic leukemia, not having achieved remission (principal)
CPT/HCPCS: 36415; 80047; 85025; 85055

== ENCOUNTER 2024-06-20 11:28 | Outpatient (CLI) | payer MEDICARE, SELFPAY ==
[2024-06-20 12:00] LABS: Eosinophils Percent Auto 2.7 % (0-4.4); Hematocrit 38.3 % (42.0-52.0); Hemoglobin 12.7 g/dL (14.0-18.0); Immature Granulocyte Absolute 0.02 K/mm3 (0.00-0.031); Immature Granulocyte Percent A 1.8 % (0-0.5); Immature Platelet Fraction Pct 8.1 % (0.9-11.2); Lymphocytes Absolute Auto 0.46 K/mm3 (0.9-3.2); Lymphocytes Percent Auto 41.1 % (18.3-44.2); Mean Corpuscular HGB Conc 33.2 g/dl (32-36); Mean Corpuscular Hemoglobin 30.2 pg (26-34); Mean Corpuscular Volume 91.2 fl (80-100); Monocytes Absolute Auto 0.4 K/mm3 (0.1-0.6); Monocytes Percent Auto 39.3 % (2.6-8.5); Neutrophils Absolute Auto 0.2 K/mm3 (1.3-6.7); Neutrophils Percent Auto 15.1 % (45.5-73.1); Platelet Count Result 193 k/mm3 (150-375); Red Cell Distribution Width 19.9 % (11.5-14.5)
[2024-06-20 12:02] LABS: Blood Urea Nitrogen 10 mg/dL (8-26); Carbon Dioxide 26 mmol/L (22-30); Chloride 105 mmol/L (98-109); Estimated Glomerular Filt Rate 49; Glucose 108 mg/dL (70-105); Ionized Calcium (POC) 1.26 mmol/L (1.11-1.31); Potassium 3.6 mmol/L (3.5-4.9); Sodium 144 mmol/L (138-146)
[2024-06-20 12:02] LABS: White Blood Count 1.1 K/mm3 (4.5-10.0)
--- OUTSIDE RECORDS SUMMARY | 2024-06-20 13:24 | XMS_ITS | Encounter Summary ---
Author Organization [facility] Address [address] [place] [address] Phone Care Team Providers Care Business Process Manager Name Role Phone Timothy Banks MD Primary Care Provider + [phone] Encounter Details Date Type Department Care Team (Late st Contact Info) Description 08/25/2017 Orders Only [facility] ProviderDusty MD [address] [place] [address] Social History Tobacco Use Types Packs/Day Years Used Date Smoking Tobacco: Never Smokeless Tobacco: Never Alcohol Use Standard Drinks/Week Comments Yes 0 (1 standard drink = 0.6 oz pur e alcohol) Sex and Gender Information Value Date Recorded Sex Assigned at Not on file 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
--- OUTSIDE RECORDS SUMMARY | 2024-06-20 13:25 | XMS_ITS | Encounter Summary ---
Author Organization [facility] Address [address] [place] [address] Phone Care Team Providers Care Multisensor Intelligence Officer Name Role Phone Timothy Banks MD Primary Care Provider Encounter Details Date Type Department Care Team (Late st Contact Info) Description 01/25/2024 Telephone [facility] Cardiology [address] [facility] Advanced Medicine 8th [place] [address] [place] [address] Alberto Gallegos MD [address] [facility] [address] [place] [address] Social History Tobacco Use Types Packs/Day Years Used Date Smoking Tobacco: Never Smokeless Tobacco: Never Alcohol Use Standard Drinks/Week Comments Yes 0 (1 standard drink = 0.6 oz pur e alcohol) Sex and Gender Information Value Date Recorded Sex Assigned at Not on file 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
--- OUTSIDE RECORDS SUMMARY | 2024-06-20 13:25 | XMS_ITS | Clinical Summary ---
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
--- OUTSIDE RECORDS SUMMARY | 2024-06-20 13:25 | XMS_ITS | Referral Summary ---
Author Organization [facility] [address] [place] [address] Address [address] [facility] [address] [place] [address] Care Team Providers Care Systems Test Technician Name Role Phone Timothy Banks MD Primary Care Provider [phone] Encounters Date Type Department Care Team Description 04/25/2024 3:00 PM ENDBANDER Ancillary Procedure [facility] Cardiology [facility] 8th [place] [address] [place] [address] SVT (supraventricular tachycardia) 04/25/2024 11:45 AM ENDBANDER Office Visit [facility] Cardiology [facility] 8th [place] [address] [place] [address] Alberto Moffett MD Paroxysmal SVT (supraventricular tachycardia) (Primary Dx); SVT (supraventricular tachycardia) 03/27/2024 3:15 PM ENDBANDER Office Visit [facility] Cardiology [address] [place] [address] [address] [place] [address] Jayro Kaminski MD SVT (supraventricular tachycardia) (Primary Dx); QAMAR (obstructive sleep apnea); USP current use of anticoagulant therapy; RBBB; Hypertensive left ventricular hypertrophy, without heart failure; LVH (left ventricular hypertrophy); Bilateral lower extremity edema 03/22/2024 Telephone [facility] Hematology [facility] Floor [address] [place] [address] Adilene Gonsalves RN from Last [...] 2 Active apixaban (ELIQUIS) 5 mg tabletIndications :USP current use of anticoagulant therapy Take 1 [...] mg total) by mouth daily 4 Active valACYclovir (VALTREX) 500 mg tablet Take [...] (100 mg total) by mouth daily 4 025 Active furosemide (LASIX) 20 mg tabletIndications :Bilateral lower extremity edema Take 1 tablet (20 mg total) by mouth daily as needed (swelling) 30 tablet 1 4 Active posaconazole (NOXAFIL) 100 mg tablet,delayed release (DR/EC) Take 3 tablets (300 mg total) by mouth daily 4 025 Active Problems Problem Noted Date Diagnosed Date Paroxysmal SVT (supraventricular tachycardia) Atypical chest pain 07/29/2022 History of COVID-19 07/20/2020 QAMAR (obstructive sleep apnea) 08/28/2018 Bilateral lower extremity edema 08/28/2018 Snoring 02/21/2018 Hypersomnolence 02/21/2018 Tiredness 02/21/2018 Other fatigue 02/21/2018 Cardiac arrhythmia 10/28/2016 Lightheadedness 06/24/2016 Overview (09/02/2016): Lightheadedness Ventricular premature beats 03/31/2016 Overview (07/21/2016): 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 ventricular contraction 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 1 06/01/2015 [...] on file Legal Sex Male 4:19 AM ENDBANDER Gender Identity Male 01/12/2020 7:43 PM CDT Sexual Orientation Straight 01/12/2020 7: 43 PM CDT Last Filed Vital Signs Vital Sign Reading Time Taken Comments Blood Pressure 142/82 04/25/2024 11:22 AM ENDBANDER Pulse 77 04/25/2024 11:22 AM ENDBANDER Temperature 36.3 C (97.4 F) 08/24/2023 9:29 AM CDT Respiratory Rate 18 08/24/2023 9:29 AM CDT Oxygen Saturation 97% 04/25/2024 11:22 AM ENDBANDER Inhaled Oxygen Concentration - - Weight 97.8 kg (215 lb 9.6 oz) 04/25/2024 11:22 AM ENDBANDER Height 185.4 cm (6' 1 ) 04/25/2024 11:22 AM ENDBANDER Body Mass Index 28.44 04/25/2024 11:22 AM ENDBANDER Plan of Treatment Not on file Procedures Procedure Name Priority Date/Time Associated Diagnosis Comments EXTENDED/PRISON HOLTER PATCH (8 DAYS UP TO 15 DAYS) Routine 04/25/2024 12:44 PM ENDBANDER SVT (supraventricular tachycardia) ECG 12-LEAD Routine 04/25/2024 11:28 AM ENDBANDER SVT (supraventricular tachycardia) from Last 3 Months Results * Extended/Fdc Holter Patch (8 days up to 15 days) (04/25/2024 12:44 PM ENDBANDER) Anatomical Region Laterality Modality Electrocardiogra phy 04/25/2024 12:4 4 PM ENDBANDER Narrative 05/23/2024 7:12 PM ENDBANDER [facility] [place] [address] [place] [address] HOLTER MONITOR Patient Name: NADEEM AMAYA W : 1945 (78y 5m) Gender: M Study Date: 04/25/2024 12:44:17 PM Ht(Inch): Wt(Lb): BSA: Tech: Location: [facility] Order Provider: ALBERTO MOFFETT BMI: Ref Provider: ALBERTO MOFFETT PROCEDURES: Holter Report: EXTENDED/PRISON HOLTER PATCH (8 DAYS UP TO 15 DAYS) [CAR80]. Enrollment Period: 04/25/2024-05/09/2024. Monitor Number: [id number]. Patient Instructions: Patient picked up device from office and understand directions and use of the equipment. [facility]. INDICATIONS: I47.10 Supraventricular tachycardia, unspecified. FINDINGS: Holter Data: Min Rate: 48 BPM Min Rate Timestamp: 2024-05-09 04:32:31 Max Rate: 253 BPM Max Rate Timestamp: 2024-05-07 11:48:36 Mean Rate: 79 BPM Singlets (PACs): 025580 events Couplets (PACs): 38791 events Total (SVE): 319083 events Singlets (PVCs): 1335 events Couplets (PVCs): 2 events Total (VE): 1350 events Total beats: [id number] Protocol: Recording Duration (Actual): 9441959.12 Total QRS: 9306962 SUMMARY: *The predominant rhythm was sinus with [...] PDF report can be found in the [facility] patient chart. Electronically Signed By: Kenny Stern Jr., M.D. 05/23/2024 6:10:09 PM ENDBANDER Electronically Signed By: Kenny Stern Jr., M.D. 05/23/2024 6:10:09 PM ENDBANDER Procedure Note Kenny Stern MD PhD - 05/23/2024 [facility] [place] [address] [place] [address] HOLTER MONITOR Patient Name: NADEEM AMAYA W : 1945 (78y 5m) Gender: M Study Date: 04/25/2024 12:44:17 PM Ht(Inch): Wt(Lb): BSA: Tech: Location: [facility] Order Provider: ALBERTO MOFFETT BMI: Ref Provider: ALBERTO MOFFETT PROCEDURES: Holter Report: EXTENDED/PRISON HOLTER PATCH (8 DAYS UP TO 15 DAYS)[CAR80]. Enrollment Period: 04/25/2024-05/09/2024. Monitor Number: [id number]. Patient Instructions: Patient picked up device from office and understanddirections and use of the equipment. Location: [facility]. INDICATIONS: I47.10 Supraventricular tachycardia, unspecified. FINDINGS: Holter Data: Min Rate: 48 BPM Min Rate Timestamp: 2024-05-09 04:32:31 Max Rate: 253 BPM Max Rate Timestamp: 2024-05-07 11:48:36 Mean Rate: 79 BPM Singlets (PACs): 060891 events Couplets (PACs): 87687 events Total (SVE): 762398 events Singlets (PVCs): 1335 events Couplets (PVCs): 2 events Total (VE): 1350 events Total beats: 1333400 Protocol: Recording Duration (Actual): 5768578.12 Total QRS: 9469991 SUMMARY: *The predominant rhythm was sinus with [...] 170 bpm, 04/27 10:55:48, and the Longest neoiztt86 beats, 04/27 10:55:48. *There were 221,618 SVE beats with a burden of 14 %. There were 3,990occurrences of Supraventricular Tachycardia with the Fastest episode 253 bpm, 04/2810:48:32, and the Longest episode 9m 57.8s, 04/26 04:27:10. *There were 0 Patient Triggers. 2. Agree with findings from [employer] document. 3. The PDF report can be found in the [facility] patient chart. Electronically Signed By: Kenny Stern Jr., M.D. 05/23/2024 6:10:09 PM ENDBANDER Electronically Signed By: Kenny Stern Jr., M.D. 05/23/2024 6:10:09 PM ENDBANDER us Alberto Moffett MD CV CARDIAC SERVICES PRO CEDURES Final Result * ECG 12 lead (04/25/2024 11:28 AM ENDBANDER) us Alberto Moffett MD ECG ORDERABLES Final R esult from Last 3 Months Insurance [employer] MEDICARE FORMERLY [facility] MEDICARE FORMERLY [facility] MEDICARE Care Teams Systems Test Technician Relationship Specialty Start Date End Date Timothy Banks MD PCP - General 07/08/16
--- OUTSIDE RECORDS SUMMARY | 2024-06-20 13:25 | XMS_ITS | Referral Summary ---
Author Organization [facility] Address [address] [place] [address] Care Team Providers Care Baggage Checker Name Role Phone Timothy Banks MD Primary Care Provider [phone] Cindy Garcia MD Unavailable Source Comments [facility],non-owned Affiliates and Associated Physician Practices is amultiple site organization consisting of ambulatory clinics and hospital sitesin [place], [place], [place] and [place]. This disclosure is being madepursuant to the Care Everywhere program and may not contain all information available regarding this patient. 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); Neutropenia, unspecified type (HCC) 06/17/2024 9:07 AM CDT - 06/17/2024 11:59 PM CDT Hospital Encounter [facility] [address] [place] [address] Timothy Banks MD Discharge Disposition: Home or Self Care 05/30/2024 Travel 05/30/2024 10:20 AM INSTRUMENT CALIBRATOR - 05/30/2024 11:59 PM INSTRUMENT CALIBRATOR Hospital Encounter [facility] [address] [place] [phone] Cindy Garcia MD Discharge Disposition: Home or Self Care 05/30/2024 11:00 AM INSTRUMENT CALIBRATOR Office Visit [facility] - Hematology/Oncolog y [address] [place] [phone] Cindy Garcia MD 05/28/2024 Orders Only [facility] - Hematology/Oncolog y [address] [place] [phone] Nikole Chou RN Acute myeloid leuk w multilin dysplasia, 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) 05/22/2024 Travel 05/22/2024 8:40 AM INSTRUMENT CALIBRATOR - 05/22/2024 11:59 PM INSTRUMENT CALIBRATOR Hospital Encounter [facility] [address] [place] [phone] Timothy Banks MD Discharge Disposition: Home or Self Care 05/21/2024 9:00 AM INSTRUMENT CALIBRATOR - 05/21/2024 11:59 PM INSTRUMENT CALIBRATOR Hospital Encounter [facility] [address] [place] [phone] Timothy Banks MD Discharge Disposition: Home or Self Care 05/20/2024 Travel 05/20/2024 9:30 AM INSTRUMENT CALIBRATOR - 05/20/2024 11:59 PM INSTRUMENT CALIBRATOR Hospital Encounter [facility] [address] [place] [phone] Cindy Garcia MD Discharge Disposition: Home or Self Care 05/17/2024 8:58 AM INSTRUMENT CALIBRATOR - 05/17/2024 11:59 PM INSTRUMENT CALIBRATOR Hospital Encounter [facility] [address] [place] [phone] Cindy Garcia MD Discharge Disposition: Home or Self Care 05/16/2024 Telephone [facility] - Hematology/Oncolog y [address] [place] [phone] Stephanie Connolly APRN-CNP Follow-up (Error/) 05/16/2024 Travel 05/16/2024 9:40 AM INSTRUMENT CALIBRATOR Office Visit [facility] - Hematology/Oncolog y [address] [place] [address] Stephanie Connolly APRN-CNP Acute myeloid leuk w multilin dysplasia, 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); Chronic kidney disease, unspecified CKD stage; Neutropenia, unspecified type (HCC) 05/16/2024 8:49 AM INSTRUMENT CALIBRATOR - 05/16/2024 11:59 PM INSTRUMENT CALIBRATOR Hospital Encounter [facility] [address] [place] [phone] Cindy Garcia MD Discharge Disposition: Home or Self Care 05/15/2024 Travel 05/15/2024 12:32 PM INSTRUMENT CALIBRATOR - 05/15/2024 11:59 PM INSTRUMENT CALIBRATOR Hospital Encounter [facility] [address] [place] [phone] Cindy Garcia MD Kunkle, Kelly, APRN-CNP Discharge Disposition: Home or Self Care 05/13/2024 Refill [facility] - [facility]Oncolog y [address] [place] [address] Cindy Garcia MD MEDICATION REFILL 05/02/2024 1:30 PM INSTRUMENT CALIBRATOR Video Visit [facility] - Hematology/Oncolog y [address] [place] [address] Cindy Garcia MD 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) 05/01/2024 Orders Only [facility] - Hematology/Oncolog y [address] [place] [address] Cindy Garcia MD 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) 04/22/2024 Travel 04/22/2024 12:45 PM INSTRUMENT CALIBRATOR - 04/22/2024 11:59 PM INSTRUMENT CALIBRATOR Hospital Encounter [facility] [address] [place] [phone] Cindy Garcia MD Discharge Disposition: Home or Self Care 04/22/2024 Refill [facility] - Hematology/Oncolog y [address] [place] [address] Cindy Garcia MD Refill Request 04/22/2024 Orders Only [facility] - Hematology/Oncolog y [address] [place] [address] Tg Amezcua, RN 04/22/2024 Orders Only [facility] - Hematology/Oncolog y [address] [place] [address] Tg Amezcua, RN 04/22/2024 Telephone [facility] - Hematology/Oncolog y [address] [place] [address] Nikole Chou RN Appointment 04/22/2024 9:38 AM INSTRUMENT CALIBRATOR - 04/22/2024 12:44 PM INSTRUMENT CALIBRATOR Hospital Encounter [facility] [address] [place] [phone] Unknown, Provider Discharge Disposition: Home or Self Care 04/19/2024 Travel 04/19/2024 9:58 AM INSTRUMENT CALIBRATOR - 04/19/2024 11:59 PM INSTRUMENT CALIBRATOR Hospital Encounter [facility] [address] [place] [phone] Unknown, Provider Discharge Disposition: Home or Self Care 04/18/2024 Travel 04/18/2024 10:30 AM INSTRUMENT CALIBRATOR [facility]On[facility]olog [facility] [address] [place] [phone] Cindy Garcia MD 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) 04/18/2024 9:32 AM INSTRUMENT CALIBRATOR - 04/18/2024 11:59 PM INSTRUMENT CALIBRATOR Hospital Encounter [facility] [address] [place] [phone] Unknown, Provider Discharge Disposition: Home or Self Care 04/17/2024 10:32 AM INSTRUMENT CALIBRATOR - 04/17/2024 11:59 PM INSTRUMENT CALIBRATOR Hospital Encounter [facility] [address] [place] [phone] Timothy Banks MD Discharge Disposition: Home or Self Care 04/16/2024 10:00 AM INSTRUMENT CALIBRATOR - 04/16/2024 11:59 PM INSTRUMENT CALIBRATOR Hospital Encounter [facility] [address] [place] [phone] Unknown, Provider Discharge Disposition: Home or Self Care 04/15/2024 Orders Only [facility] [address] [place] [phone] Cindy Garcia MD 04/11/2024 5:49 AM INSTRUMENT CALIBRATOR - 04/11/2024 11:05 AM INSTRUMENT CALIBRATOR Hospital Encounter [facility] [address] [place] [address] Cindy Garcia MD [facility] Discharge Disposition: Home or Self Care 04/10/2024 Orders Only [facility] [address] [place] [phone] Cindy Garcia MD Chronic kidney disease, unspecified CKD stage 04/05/2024 Orders Only [facility] [address] [place] [phone] Cindy Garcia MD 04/04/2024 Telephone [facility] - Hematology/Oncolog y [address] [place] [phone] Cindy Garcia MD Medication Prior Auth Request 04/01/2024 Orders Only [facility] [address] [place] [phone] Cindy Garcia MD Tumor lysis syndrome (HCC) 04/01/2024 Travel 04/01/2024 3:09 PM INSTRUMENT CALIBRATOR - 04/01/2024 11:59 PM INSTRUMENT CALIBRATOR Hospital Encounter [facility] [address] [place] [address], [address] [place] [address] Discharge Disposition: Home or Self Care 04/01/2024 Orders Only [facility] [address] [place] [phone] Cindy Garcia MD Acute myeloid leukemia 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) 04/01/2024 2:00 PM INSTRUMENT CALIBRATOR Office Visit [facility] - Hematology/Oncolog y [address] [place] [phone] Cindy Garcia MD 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) 03/25/2024 Orders Only [facility] [address] [place] [address] Ekta Feror, ANIMAL DOCTOR-SPINNER BOX 03/25/2024 Orders Only [facility] - Hematology/Oncolog y [address] [place] [phone] Cindy Garcia MD Acute myeloid leuk w multilin dysplasia, 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) 03/25/2024 Telephone Transitional Care at [facility] [address] [place] [phone] Adamaris Jesus RNchief port director 03/13/2024 7:14 PM INSTRUMENT CALIBRATOR - 03/23/2024 1:56 PM INSTRUMENT CALIBRATOR Hospital Encounter [facility] [address] [place] [phone] Cindy Garcia MD Kumar, Ashwath, MD Schrader, MD Jodi Edwards, Josh Chavez MD Internal Medicine Discharge Disposition: Home or Self Care from Last 3 Months Allergies Active Allergy [...] mouth daily before breakfast Active vitamin D3 (Cholecalciferol) 10 MCG (400 UNIT) tablet Take 1 (one) capsule by mouth once daily Active folic acid 400 MCG tablet Take 1 (one) tablet by mouth once daily Active budesonide-formot benjamin (Symbicort) 160-4.5 MCG/ACT inhaler Inhale 2 (two) [...] 04/18/2024 ondansetron, disintegrating, (Zofran ODT) 8 MG tabletIndications :Acute myeloid leuk w multilin dysplasia, not achieve [...] 3 04/18/2024 Active posaconazole (Noxafil) 100 MG tabletIndications :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) Take 3 (three) tablets by mouth daily with dinner for 90 days 90 tablet 2 04/18/2024 07/17/2024 Active allopurinol (Zyloprim) 300 MG tablet Take 1 (one) tablet by mouth once daily after breakfast 30 tablet 04/22/2024 Active venetoclax (Venclexta) 100 MG tabletIndications :Acute Myelocytic Leukemia Take 1 (one) tablet by mouth daily with food Reasons: Acute Myelocytic Leukemia 21 tablet 11 05/13/2024 01/20/2025 Active ferrous sulfate 325 (65 FE) MG tabletIndications :Acute myeloid leuk w multilin dysplasia, 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 Not hard at all 03/13/2024 [facility] - Occupational Stress [...] any time in the past 12 m [facility], were you homeless or living in a residential (including now)? No 03/13/2024 Sex and Gender Information Value Date Recorded Sex Assigned at Male 03/05/2024 8:04 AM INSTRUMENT CALIBRATOR Gender Identity Male 03/05/2024 8:04 AM INSTRUMENT CALIBRATOR Sexual Orientation Straight 03/05/2024 8: 04 AM INSTRUMENT CALIBRATOR Last Filed Vital Signs Vital Sign Reading Time Taken Comments Blood Pressure 144/79 06/17/2024 9:50 AM CDT Pulse 56 06/17/2024 9:50 AM CDT Temperature 36.6 C (97.9 F) 06/17/2024 9:50 AM CDT Respiratory Rate 20 06/17/2024 9:50 AM CDT Oxygen Saturation 98% 06/17/2024 9:50 AM CDT Inhaled Oxygen Concentration - - Weight 95.3 kg (210 lb) 06/17/2024 9:50 AM CDT Height 182.9 cm (6') 05/15/2024 12:50 PM INSTRUMENT CALIBRATOR Body Mass Index 28.48 05/15/2024 12:50 PM INSTRUMENT CALIBRATOR Functional Status Functional Status Response Date of [...] Care Team (Late st Contact Info) Description 06/24/2024 9:00 AM CDT Hospital Encounter [facility] [address] [place] [address] 06/24/2024 9:40 AM CDT Office Visit [facility] - Hematology/Oncology [address] [place] [phone] Stephanie Connolly APRN-FAISAL [address] [place] [phone] 06/25/2024 10:00 AM CDT Hospital Encounter [facility] [address] [place] [phone] 06/26/2024 8:30 AM CDT Hospital Encounter [facility] [address] [place] [phone] 06/27/2024 9:30 AM CDT Appointment [facility] [address] [place] [phone] 06/28/2024 9:30 AM CDT Appointment [facility] [address] [place] [phone] 07/22/2024 9:20 AM CDT Appointment [facility] [address] [place] [phone] Timothy Banks MD [address] [place] [phone] 07/22/2024 10:00 AM CDT Office Visit [facility] - Hematology/Oncology [address] [place] [phone] Cindy Garcia MD [address] [place] [phone] Medical Devices Implanted Type Area Journeyman Electrician Device Identifier Shelf Expiration Date Model / Serial / Lot Port Implinfn Powerport Clrvu Argd Kandy Implanted:Qty : 1 on 04/11/2024 by Davian Marshall MD at [facility] Catheters Right: Chest Wall [employer] [id number] 02/07/2025 [id number] / / [id number] Procedures Procedure Name Priority Date/Time Associated Diagnosis Comments DIFFERENTIAL MANUAL Routine 06/17/2024 9 :36 AM CDT Acute myeloid leuk w multilin dysplasia, 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) COMPREHENSIVE METABOLIC PANEL Routine 06/17/2024 9:36 AM CDT Acute myeloid leuk w multilin dysplasia, 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) CBC W AUTO DIFFERENTIAL Routine 03/10/20 25 9:36 AM CDT Acute myeloid leuk w multilin dysplasia, 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) COMPREHENSIVE METABOLIC PANEL Routine 05/30/2024 11:05 AM INSTRUMENT CALIBRATOR Acute myeloid leuk w multilin dysplasia, 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) CBC W AUTO DIFFERENTIAL Routine 05/30/19 11:05 AM INSTRUMENT CALIBRATOR Acute myeloid leuk w multilin dysplasia, 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) DIFFERENTIAL MANUAL Routine 05/20/2024 9 :42 AM INSTRUMENT CALIBRATOR Acute myeloid leuk w multilin dysplasia, 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) COMPREHENSIVE METABOLIC PANEL Routine 05/20/2024 9:42 AM INSTRUMENT CALIBRATOR Acute myeloid leuk w multilin dysplasia, 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) CBC W AUTO DIFFERENTIAL Routine 05/20/19 9:42 AM INSTRUMENT CALIBRATOR Acute myeloid leuk w multilin dysplasia, 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) DIFFERENTIAL MANUAL Routine 05/16/2024 9 :03 AM INSTRUMENT CALIBRATOR Acute myeloid leuk w multilin dysplasia, 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) COMPREHENSIVE METABOLIC PANEL Routine 05/16/2024 9:03 AM INSTRUMENT CALIBRATOR Acute myeloid leuk w multilin dysplasia, 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) CBC W AUTO DIFFERENTIAL Routine 05/16/19 9:03 AM INSTRUMENT CALIBRATOR Acute myeloid leuk w multilin dysplasia, 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) CHROMOSOME ANALYSIS BONE MARROW PANEL Routine 05/15/2024 1:35 PM INSTRUMENT CALIBRATOR Acute myeloid leuk w multilin dysplasia, 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) MDS (myelodysplastic syndrome) (HCC) FLOW CYTOMETRY BONE MARROW Routine 05/15/2024 1:35 PM INSTRUMENT CALIBRATOR Acute myeloid leuk w multilin dysplasia, 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) MDS (myelodysplastic syndrome) (HCC) BONE MARROW BIOPSY (STL) Routine 05/15/2024 1:35 PM INSTRUMENT CALIBRATOR Acute myeloid leuk w multilin dysplasia, 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) MDS (myelodysplastic syndrome) (HCC) LAB MISC TEST (NOT BLOOD) Routine 05/15/2024 1:35 PM INSTRUMENT CALIBRATOR Acute myeloid leuk w multilin dysplasia, 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) MDS (myelodysplastic syndrome) (HCC) LAB MISC TEST (NOT BLOOD) Routine 05/15/2024 1:35 PM INSTRUMENT CALIBRATOR Acute myeloid leuk w multilin dysplasia, 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) MDS (myelodysplastic syndrome) (HCC) DIFFERENTIAL MANUAL Routine 05/15/2024 1 :01 PM INSTRUMENT CALIBRATOR Acute myeloid leuk w multilin dysplasia, 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) MDS (myelodysplastic syndrome) (HCC) CBC W AUTO DIFFERENTIAL Routine 05/15/19 1:01 PM INSTRUMENT CALIBRATOR Acute myeloid leuk w multilin dysplasia, 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) MDS (myelodysplastic syndrome) (HCC) EKG 12-LEAD Routine 04/22/2024 1:27 PM INSTRUMENT CALIBRATOR Acute myeloid leukemia 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) DIFFERENTIAL MANUAL Routine 04/22/2024 1 0:11 AM INSTRUMENT CALIBRATOR Acute myeloid leuk w multilin dysplasia, 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) COMPREHENSIVE METABOLIC PANEL Routine 04/22/2024 10:11 AM INSTRUMENT CALIBRATOR Acute myeloid leuk w multilin dysplasia, 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) CBC W AUTO DIFFERENTIAL Routine 04/22/19 25 10:11 AM INSTRUMENT CALIBRATOR Acute myeloid leuk w multilin dysplasia, 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) COMPREHENSIVE METABOLIC PANEL Routine 04/18/2024 9:48 AM INSTRUMENT CALIBRATOR Acute myeloid leuk w multilin dysplasia, 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) CBC W AUTO DIFFERENTIAL Routine 04/18/19 25 9:48 AM INSTRUMENT CALIBRATOR Acute myeloid leuk w multilin dysplasia, 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) QUANTIFERON-TB GOLD PLUS 4-TUBE Routine 04/16/2024 1:43 PM INSTRUMENT CALIBRATOR LDH BLOOD Routine 04/16/2024 10:26 AM INSTRUMENT CALIBRATOR Tumor lysis syndrome (HCC) COMPREHENSIVE METABOLIC PANEL Routine 04/16/2024 10:26 AM INSTRUMENT CALIBRATOR Acute myeloid leuk w multilin dysplasia, 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) CBC W AUTO DIFFERENTIAL Routine 04/16/19 25 10:26 AM INSTRUMENT CALIBRATOR Acute myeloid leuk w multilin dysplasia, 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) COMPREHENSIVE METABOLIC PANEL Routine 04/11/2024 10:54 AM INSTRUMENT CALIBRATOR Acute myeloid leuk w multilin dysplasia, 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) CBC W AUTO DIFFERENTIAL Routine 04/11/19 10:54 AM INSTRUMENT CALIBRATOR Acute myeloid leuk w multilin dysplasia, 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) IR AUDREY CATH INSERT Routine 04/11/2024 9:45 AM INSTRUMENT CALIBRATOR Acute myeloid leukemia 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) PT-INR [facility] STAT 04/11/2024 7:20 AM INSTRUMENT CALIBRATOR Acute myeloid leukemia 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) MDS (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, 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) PHOSPHORUS BLOOD Routine 04/01/2024 3:12 PM INSTRUMENT CALIBRATOR Tumor lysis syndrome (HCC) URIC ACID BLOOD Routine 04/01/2024 3:12 PM INSTRUMENT CALIBRATOR Tumor lysis syndrome (HCC) DIFFERENTIAL MANUAL Routine 04/01/2024 3 :12 PM INSTRUMENT CALIBRATOR Acute myeloid leukemia 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) MAGNESIUM BLOOD Routine 04/01/2024 3:12 PM INSTRUMENT CALIBRATOR Acute myeloid leukemia 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) ERYTHROPOIETIN Routine 04/01/2024 3:12 PM INSTRUMENT CALIBRATOR Acute myeloid leukemia 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) SOLUBLE TRANSFERRIN RECEPTOR Routine 04/01/2024 3:12 PM INSTRUMENT CALIBRATOR Acute myeloid leukemia 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) COMPREHENSIVE METABOLIC PANEL Routine 04/01/2024 3:12 PM INSTRUMENT CALIBRATOR Acute myeloid leukemia 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) CBC W AUTO DIFFERENTIAL Routine 04/01/20 24 3:12 PM INSTRUMENT CALIBRATOR Acute myeloid leukemia 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) LAB RESULTS ORDER 03/25/2024 DIFFERENTIAL MANUAL AM Draw 03/23/2024 1 2:25 AM INSTRUMENT CALIBRATOR MAGNESIUM BLOOD Routine 03/23/2024 12:25 AM INSTRUMENT CALIBRATOR URIC ACID BLOOD Routine 03/23/2024 12:25 AM INSTRUMENT CALIBRATOR PHOSPHORUS BLOOD Routine 03/23/2024 12:2 5 AM INSTRUMENT CALIBRATOR COMPREHENSIVE METABOLIC PANEL Routine 03/23/2024 12:25 AM INSTRUMENT CALIBRATOR LDH BLOOD Routine 03/23/2024 12:25 AM INSTRUMENT CALIBRATOR PTT [facility] AM Draw 03/23/2024 12:25 AM INSTRUMENT CALIBRATOR PT-INR [facility] AM Draw 03/23/2024 12:25 AM INSTRUMENT CALIBRATOR CBC W AUTO DIFFERENTIAL AM Draw 03/23/20 24 12:25 AM INSTRUMENT CALIBRATOR MAGNESIUM BLOOD Routine 03/22/2024 6:20 PM INSTRUMENT CALIBRATOR URIC ACID BLOOD Routine 03/22/2024 6:20 PM INSTRUMENT CALIBRATOR PHOSPHORUS BLOOD Routine 03/22/2024 6:20 PM INSTRUMENT CALIBRATOR COMPREHENSIVE METABOLIC PANEL Routine 03/22/2024 6:20 PM INSTRUMENT CALIBRATOR LDH BLOOD Routine 03/22/2024 6:20 PM INSTRUMENT CALIBRATOR DIFFERENTIAL MANUAL AM Draw 03/22/2024 6 :58 AM INSTRUMENT CALIBRATOR MAGNESIUM BLOOD Routine 03/22/2024 6:58 AM INSTRUMENT CALIBRATOR URIC ACID BLOOD Routine 03/22/2024 6:58 AM INSTRUMENT CALIBRATOR PHOSPHORUS BLOOD Routine 03/22/2024 6:58 AM INSTRUMENT CALIBRATOR COMPREHENSIVE METABOLIC PANEL Routine 03/22/2024 6:58 AM INSTRUMENT CALIBRATOR LDH BLOOD Routine 03/22/2024 6:58 AM INSTRUMENT CALIBRATOR PTT [facility] AM Draw 03/22/2024 6:58 AM INSTRUMENT CALIBRATOR PT-INR [facility] AM Draw 03/22/2024 6:58 AM INSTRUMENT CALIBRATOR CBC W AUTO DIFFERENTIAL AM Draw 03/22/20 6:58 AM INSTRUMENT CALIBRATOR from Last 3 Months Results * (ABNORMAL) DIFFERENTIAL MANUAL (06/17/2024 9:36 AM CDT) Only the most recent of8 resultswithin the time period is included. Neutrophil % 16(L) 41 - 74 % 06/17/2024 10:48 AM [facility] Lymphocyte % 44 17 - 47 % 06/17/2024 10:48 AM [facility] Monocyte % 38(H) 3 - 11 % 06/17/2024 10:48 AM [facility] Eosinophil % 2 0 - 7 % 06/17/2024 10:48 AM [facility] Neutrophil Absolute 0.13(L) 1.60 - 7.50 x10E9/L 06/17/2024 10:48 AM [facility] Lymphocyte Absolute 0.35(L) 1.00 - 4.40 x10E9/L 06/17/2024 10:48 AM [facility] Monocyte Absolute 0.30 0.15 - 1.00 x10E9/L 06/17/2024 10:48 AM [facility] Eosinophil Absolute 0.02 0.00 - 0.60 x10E9/L 06/17/2024 10:48 AM [facility] RBC Morphology REVIEWED 06/17/2024 10:48 AM [facility] Microcytosis MODERATE(A) (none) 06/17/2024 10:48 AM [facility] Schistocytes MODERATE(A) (none) 06/17/2024 10:48 AM [facility] Large Platelets PRESENT(A) (none) 10:48 AM [facility] Blood BLOOD SPECIMEN / Unknown Venipuncture / Unknown 06/17/2024 9:36 AM CDT 06/17/2024 9:47 AM CDT Cindy Garcia MD LAB - HEMATOLOGY ORD ERABLES [address] [address], [facility] [phone] * (ABNORMAL) CBC WITH DIFFERENTIAL (06/17/2024 9:36 AM CDT) Only the most recent of12 resultswithin the time period is included. WBC 0.8(LL) 4.0 - 10.7 x10E9/L 06/17/2024 10:52 AM [facility] RBC Count 3.78(L) 4.30 - 5.80 x10E12/L 06/17/2024 10:52 AM [facility] Hemoglobin 11.2(L) 13.3 - 17.5 g/dL 06/17/2024 10:52 AM [facility] Hematocrit 33.9(L) 38.7 - 51.1 % 06/17/2024 10:52 AM [facility] MCV 89.7 80.0 - 98.0 fL 06/17/2024 10:52 AM [facility] MCH 29.6 26.7 - 33.6 pg 06/17/2024 10:52 AM [facility] MCHC 33.0 31.7 - 36.3 g/dL 06/17/2024 10:52 AM [facility] RDW-CV 20.0(H) 11.3 - 14.8 % 06/17/2024 10:52 AM [facility] Platelet Count 164 150 - 420 x10E9/L 06/17/2024 10:52 AM [facility] Preliminary Absolute Neutrophil 0.11(L) 1.60 - 7.50 x10E9/L 06/17/2024 10:52 AM [facility] Blood BLOOD SPECIMEN / Unknown Venipuncture / Unknown 06/17/2024 9:36 AM CDT 06/17/2024 9:47 AM T Cindy Garcia MD LAB - HEMATOLOGY ORD ERABLES [address] [address], [facility] [phone] * (ABNORMAL) COMPREHENSIVE METABOLIC PANEL (06/17/2024 9:36 AM T) Only the most recent of12 resultswithin the time period is included. BUN 14 7 - 26 mg/dL 06/17/2024 10:44 AM [facility] Creatinine 1.20(H) 0.71 - 1.16 mg/dL 06/17/2024 10:44 AM [facility] Sodium 143 136 - 145 mmol/L 06/17/2024 10:44 AM [facility] Potassium 3.5 3.5 - 4.5 mmol/L 06/17/2024 10:44 AM [facility] Chloride 110(H) 98 - 107 mmol/L 06/17/2024 10:44 AM [facility] CO2 24 22 - 29 mmol/L 06/17/2024 10:44 AM [facility] Glucose 78 70 - 99 mg/dL 06/17/2024 10:44 AM [facility] Calcium 9.1 8.4 - 10.2 mg/dL 06/17/2024 10:44 AM [facility] Protein Total 6.1 6.0 - 8.3 g/dL 06/17/2024 10:44 AM [facility] Albumin 3.6 3.4 - 5.0 g/dL 06/17/2024 10:44 AM [facility] Bilirubin Total 1.0 0.2 - 1.2 mg/dL 06/17/2024 10:44 AM [facility] Alkaline Phosphatase 123 40 - 150 U/L 06/17/2024 10:44 AM [facility] ALT 11 5 - 55 U/L 06/17/2024 10:44 AM [facility] AST 14 5 - 34 U/L 06/17/2024 10:44 AM [facility] Anion Gap 9 6 - 16 06/17/2024 10:44 AM [facility] BUN/Creatinine Ratio 12 7 - 23 06/17/2024 10:44 [facility] Osmolality Calculated 295 275 - 295 mOsm/kg 06/17/2024 10:44 [facility] Albumin/Globulin Ratio 1.4 1.1 - 2.3 06/17/2024 10:44 [facility] eGFR by CKD-EPI 62(L) >=90 mL/min/1.7 3 m2 06/17/2024 10:44 [facility] Blood BLOOD SPECIMEN / Unknown Venipuncture / Unknown 06/17/2024 9:36 AM CDT 06/17/2024 9:47 AM [facility] Cindy Garcia MD LAB - CHEMISTRY CHELI MONREAL [facility] [address] [place] [address], [facility] [phone] * FLOW CYTOMETRY BONE MARROW (05/15/2024 1:35 PM INSTRUMENT CALIBRATOR) Case Report Flow Cytometry Case: [id number] Authorizing Provider: Chapis Prabhakar APRN-CNP Collected: 05/15/2024 01:35 PM Ordering Location: [facility] Received: 05/15/2024 03:04 PM Pathologist: Guillermo Brown MD Specimen: Bone Marrow 05/22/2024 8:46 AM [facility] Addendum 1 This addendum is issued to report the results of minimal residual disease (MRD) flow cytometric analysis performed by the [facility], [address] [place] [address], [place] [address]. B one marrow aspirate - No abnormal [...] part represent peripheral blood. 05/22/2024 8:46 AM [facility] Addendum electronically signed by Angeles Rosado MD on 05/22/2024 at 8:46 AM Final Diagnosis Bone marrow, flow cytometry: - No significant B-cell, increased blast, or immature monocyte population detected 05/22/2024 8:46 AM [facility] Flow Cytometry Interpretation Viability: 75% B-cells: no significant population T-cells: not increased Blasts: not increased, ~1.5% represent CD34+ myeloblasts, ~23% of overall events are mature CD14+/CD64+ monocytes with no immunophenotypic aberrancies. MRD sent: Yes A bone marrow aspirate smear prepared from the flow cytometry specimen has been reviewed for microbiology quality control technician purposes. 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 A-2 Flow CD10 A-3 Flow CD13 A-5 Flow CD20 A-11 Flow CD2 A-13 Flow CD14 A-16 Flow CD117 A-17 Flow CD11b A-18 Flow CD11c A-1 Flow CD5 A-4 Flow CD19 A-6 Flow CD33 A-7 Flow CD34 A-8 Flow CD45 A-12 Flow CD7 A-14 Flow CD56 A-15 Flow CD64 A-9 [place]+CD19+ A-10 Lambda+CD19+ A-19 Flow HLA-DR 05/22/2024 8:46 AM [facility] Pathologist Location at [facility] 05/22/2024 8:46 AM [facility] Disclaimer Test performed at [facility], [address] [place] [address], [place], [address]. *The established laboratory minimum viability is 70%. [...] high complexity clinical testing. 05/22/2024 8:46 AM [facility] Embedded Images 8:46 AM [facility] Pathology/Cytolo gy BONE MARROW SPECIMEN / Unknown Collection / Unknown 05/15/2024 1:35 PM INSTRUMENT CALIBRATOR 05/15/2024 3:04 PM INSTRUMENT CALIBRATOR Chapis JOLLEY LAB - PATHOLOGY/CY TOLOGY ORDERABLES [facility] [address] [place] [address]. [place] [address], [facility] [phone] * BONE MARROW BIOPSY (STL) (05/15/2024 1:35 PM INSTRUMENT CALIBRATOR) Case Report Bone Marrow Patholog y Report Case: [id number] Authorizing Provider: Chapis Prabhakar APRN-CNP Collected: 05/15/2024 01:35 PM Ordering Location: [facility] Received: 05/15/2024 03:04 PM Pathologist: Guillermo Brown MD Specimens: A) - Bone Marrow Clot B) - Bone Marrow Core C) - Bone Marrow Aspirate D) - Blood Peripheral 05/16/2024 3:02 PM [facility] Final Diagnosis Bone marrow, aspirate, clot section, and core biopsy: - Normocellular marrow with marked erythroid hyperplasia, myeloid hypoplasia and monocytic hyperplasia. - No overt acute leukemia seen. - See description. Peripheral blood smear: - Bicytopenia. - See description. 05/16/2024 3:02 PM [facility] Comment The significance of the monocytosis is unclear. By flow cytometry, these appear mature. These likely represent reactive cells. Minimal residual disease flow cytometry is pending. Immunohistochemistry is performed to assess staining cells in an architectural context: CD34 is negative for increased blasts (<2% of marrow cellularity), CD117 highlights early erythroid precursor cells. 05/16/2024 3:02 PM [facility] Peripheral Smear Description RBC: normocytic anemia. WBC: leukopenia with absolute neutropenia and lymphopenia. Platelets: normal in number. 05/16/2024 3:02 PM [facility] [...] stain): no ring sideroblasts. 05/16/2024 3:02 PM [facility] [...] similar to core biopsy. 05/16/2024 3:02 PM [facility] Flow Cytometry Summary Bone marrow, flow cytometry ([id number]): - No significant B-cell, increased blast, or immature monocyte population detected 05/16/2024 3:02 PM [facility] Clinical History AML. 05/16/2024 3:02 PM [facility] [...] in cassette B1. /VIVIAN 05/16/2024 3:02 PM [facility] Pathologist Location at [facility] 05/16/2024 3:02 PM [facility] Disclaimer The performance characteristics of all immunohistochemical and indirect immunofluorescence stains (if any) cited in this report were determined by the Histopathology Laboratory of [facility]. Some of these tests were developed by [...] the attending (teaching) pathologist. 05/16/2024 3:02 PM [facility] Embedded Images 05/16/2024 3:02 PM [facility] Pathology/Cytology PERIPHERAL BLOOD / Unknown Collection / Unknown 05/15/2024 1:35 PM INSTRUMENT CALIBRATOR 05/15/2024 3:04 PM INSTRUMENT CALIBRATOR Miscellaneous samples (specimen) BONE MARROW SPECIMEN / Unknown 05/15/2024 1:35 PM INSTRUMENT CALIBRATOR 05/15/2024 3:04 PM INSTRUMENT CALIBRATOR Miscellaneous samples (specimen) SPECIMEN FROM BONE MARROW OBTAINED BY ASPIRATION / Unknown 05/15/2024 1:35 PM INSTRUMENT CALIBRATOR 05/15/2024 3:04 PM INSTRUMENT CALIBRATOR Miscellaneous samples (specimen) PERIPHERAL BLOOD / Unknown 05/15/2024 1:35 PM INSTRUMENT CALIBRATOR 05/15/2024 3:49 PM INSTRUMENT CALIBRATOR [facility] - PATHOLOGY/CY TOLOGY ORDERABLES Performing Organization Address City/[facility]/ZIP Co de Phone Number [facility] [address] [place] [address], [facility] [phone] * LAB MISC TEST (NOT BLOOD) (05/15/2024 1:35 PM INSTRUMENT CALIBRATOR) Only the most recent of2 resultswithin the time period is included. [facility] Test Name AML Panel FISH and Molecular. Additional probes +8 (CEP8) and del(20)(q12) ([id number] 06/18/2024 5:28 AM CDT [facility] NON INTERF Comment:This is an appended report. These results have been appended to a previously final verified report. Test Result See Scanned Report 06/18/2024 5:28 AM CDT [facility] NON INTERF Comment Ref Lab [facility] 06/18/2024 5:28 AM CDT [facility] NON INTERF Comment:This is an appended report. These results have been appended to a previously final verified report. Other BONE MARROW SPECIMEN / Unknown Collection / Unknown 05/15/2024 1:35 PM INSTRUMENT CALIBRATOR 05/15/2024 4:01 PM INSTRUMENT CALIBRATOR Narrative [facility] NON INTERF - 06/18/2024 5:28 AM CDT Waiting for IDH 1/2 (received 06/17/24) Chapis JOLLEY LAB - BODY FLUID O RDERABLES Performing Organization Address City/[facility]/ZIP Co de Phone Number [facility] NON INTERF [address] [place] [address], [facility] [phone] * CHROMOSOME ANALYSIS BONE MARROW PANEL (05/15/2024 1:35 PM INSTRUMENT CALIBRATOR) [facility] Chromosome Analysis Bone Marrow See Note Normal 05/22/2024 1:12 PM [facility] [employer] ([facility]) Comment: Test Performed: Chromosome Analysis Specimen [...] reviewed and approved by Oliver Muhammad, PhD, [facility] This result has been reviewed and approved by Emily Street MD A portion of this analysis was performed at the following location(s): [facility] CG-KS[facility]2 [facility]IN[facility]1 INTERPRETIVE INFORMATION: Chromosome Analysis, Bone Marrow This test was developed and its performance characteristics determined by [facility]. It has not been cleared or approved by the US Food and Drug Administration. This test was performed in a CLIA certified laboratory and is intended for clinical purposes. [facility] Chromosome Analysis Bone Marrow See Note 05/22/2024 1:12 PM INSTRUMENT CALIBRATOR [employer] ([facility]) Comment: Authorized individuals can access the [employer] Enhanced Report with an [employer] account using the following link. Your local lab can assist you in obtaining the patient report if you don't have a Connect account. [email or web address] Performed By: [facility] [address] [place] [address] Direct Marketing Manager: Uche Morley MD, PhD CLIA Number: [id number] Bone marrow BONE MARROW SPECIMEN / Unknown 05/15/2024 1:35 PM INSTRUMENT CALIBRATOR 05/15/2024 3:04 PM INSTRUMENT CALIBRATOR Chapis Prabhakar [facility] LAB - PATHOLOGY/CY TOLOGY ORDERABLES Performing Organization Address [facility]/ZIP Co de Phone Number [employer] [facility] ([facility]) [address] * EKG 12-LEAD - HOSPITAL PERFORMED (04/22/2024 1:27 PM INSTRUMENT CALIBRATOR) Ventricular Rate 61 BPM [facility] Atrial Rate 61 BPM [facility] P-R Interval 112 ms [facility] QRS Duration ms 126 ms [facility] Q-T Interval ms 476 ms [facility] QTC Calculation (Bezet) 479 ms [facility] Calculated P [place] 84 degrees [facility] MUSE Calculated R [place] 36 degrees [facility] MUSE Calculated T [place] -163 degrees [facility] M[facility] Interpretation EKG NORMAL SINUS RHYTHM NON-SPECIFIC INTRA-VENTRICULA R CONDUCTION BLOCK T WAVE ABNORMALITY, CONSIDER INFERIOR ISCHEMIA T WAVE ABNORMALITY, CONSIDER ANTEROLATERAL ISCHEMIA ABNORMAL ECG WHEN COMPARED WITH ECG OF 18-MAR-2024 13:48, NO SIGNIFICANT CHANGE WAS FOUND Confirmed by HANSEL VASQUES MD ([id number]) on 04/23/2024 8:31:57 AM [facility] M[facility] 04/22/2024 1:27 PM INSTRUMENT CALIBRATOR 04/23/2024 8:31 AM INSTRUMENT CALIBRATOR Cindy Garcia MD ECG ORDERABLES [facility] * QUANTIFERON-TB GOLD PLUS 4-TUBE (04/16/2024 1:43 PM INSTRUMENT CALIBRATOR) Pathologist [facility] QuantiFERON Mitogen Minus NIL 9.09 IU/mL 04/18/2024 11:11 PM INSTRUMENT CALIBRATOR [facility] ([facility]) QuantiFERON Nil Value 0.04 IU/mL 04/18/2024 11:11 PM INSTRUMENT CALIBRATOR [facility] ([facility]) QuantiFERON Plus TB1 Minus NIL 0.00 <=0.34 IU/mL 04/18/2024 11:11 PM INSTRUMENT CALIBRATOR [facility] ([facility]) QuantiFERON Plus TB2 Minus NIL 0.00 <=0.34 IU/mL 04/18/2024 11:11 PM INSTRUMENT CALIBRATOR [facility] ([facility]) QuantiFERON-TB Gold Plus Negative Negative 04/18/2024 11:11 PM INSTRUMENT CALIBRATOR [facility] ([facility]) Comment: INTERPRETIVE INFORMATION:Quantiferon TB Gold Plus [...] Mycobacterium tuberculosis Infection -- [place], 2010 (http://www.cdc.gov/mmwr/preview/mmwrhtml/vw9168x3.htm), for more information concerning test performance in low-prevalence populations and use in occupational screening. Performed By: [facility] [address] [place] [address] Direct Marketing Manager: Uche Morley MD, PhD CLIA Number: [id number] Blood BLOOD SPECIMEN / Unknown Venipuncture / Unknown 04/16/2024 1:43 PM INSTRUMENT CALIBRATOR 04/16/2024 2:03 PM INSTRUMENT CALIBRATOR Cindy Garcia MD LAB - CHEMISTRY CHELI MONREAL [facility] [employer] ([facility]) [address] [place] [address], [facility] * LDH BLOOD (04/16/2024 10:26 AM INSTRUMENT CALIBRATOR) Only the most recent of4 resultswithin the time period is included. LDH Total 197 125 - 243 Units/L 04/16/2024 11:14 AM INSTRUMENT CALIBRATOR [facility] Blood BLOOD SPECIMEN / Unknown Venipuncture / Unknown 04/16/2024 10:26 AM INSTRUMENT CALIBRATOR 04/16/2024 10:48 AM INSTRUMENT CALIBRATOR Cindy Garcia MD LAB - CHEMISTRY CHELI MONRELA [facility] [address] [place] [address], [facility] [phone] * IR Audrey Cath Insert (04/11/2024 9:45 AM INSTRUMENT CALIBRATOR) Anatomical Region Laterality Modality Chest X-Ray Angiograph y 04/11/2024 9:19 AM INSTRUMENT CALIBRATOR Impressions 04/11/2024 3:43 PM INSTRUMENT CALIBRATOR Impression: Successful placement of a single lumen 8 Pakistani x 23 cm chest power port via [...] evaluation, please review the evaluation forms in [facility]. For details on monitored clinical parameters during the intra-service sedation time, please review the procedure nurse documentation in [facility]. Report dictated by Eduardo Coleman MD, PhD (technical operations vice president). > Dictated by Eduardo Coleman MD (Therapeutic Strategy Lead) 04/11/2024 9:19 AM IDavian DO have personally reviewed and interpreted this examination/study. > Interpreting Provider: Davian Marshall DO on 04/11/2024 3:43 PM Narrative 04/11/2024 3:43 PM INSTRUMENT CALIBRATOR PROCEDURE: IR AUDREY CATH INSERT, DATE/TIME OF EXAM: 04/11/2024 5:49 AM, LOCATION [facility] INDICATION: C92.00: Acute myeloid leukemia not having [...] chest. 3.Fluoroscopy-guided placement of single lumen 8 Pakistani x 23 cm chest power port via [...] draped in the usual sterile manner. A manager merchandise film of chest was obtained, which was [...] Davian Marshall MD - 04/11/2024 PROCEDURE: IR AUDREY CATH INSERT, DATE/TIME OF EXAM: 04/11/2024 5:49 AM, LOCATION [facility] INDICATION: C92.00: Acute myeloid leukemia not having [...] chest. 3.Fluoroscopy-guided placement of single lumen 8 Pakistani x 23 cm chestpower port via the [...] and draped inthe usual sterile manner. A manager merchandise film of chest was obtained, which was [...] the procedure well [facility]. There were no immediate complicationsassociated with the procedure. Impression: Successful placement of a single lumen 8 Pakistani x 23 cmchest power port via the [...] evaluation, please review the evaluation forms in [facility]. For details on monitored clinical parameters during the intra-service sedation time, please review the procedure nurse documentation in [facility]. Report dictated by Eduardo Coleman MD, PhD (technical operations vice president). > Dictated by Eduardo Coleman MD (Therapeutic Strategy Lead) 04/11/2024 9:19AM IDavian DO have personally reviewed and interpreted this examination/study. > Interpreting Provider: Davian Marshall DO on 04/11/2024 3:43 PM Cindy Garcia MD IR ORDERABLES * PT-INR [facility] (04/11/2024 7:20 AM INSTRUMENT CALIBRATOR) Only the most recent of3 resultswithin the time period is included. PT 14.6 12.1 - 14.8 Seconds 04/11/2024 7:56 AM INSTRUMENT CALIBRATOR [facility] INR 1.2 See Comment 04/11/2024 7:56 AM INSTRUMENT CALIBRATOR [facility] Comment:The suggested therap eutic range for standard coumadin (warfarin) therapy is an INR of 2.0-3.0. For high-risk patients (Mechanical Mitral Valve Prosthesis, etc.), the suggested prophylactic therapeutic range is an INR of 2.5-3.5. Blood BLOOD SPECIMEN / Unknown Venipuncture / Unknown 04/11/2024 7:20 AM INSTRUMENT CALIBRATOR 04/11/2024 7:23 AM INSTRUMENT CALIBRATOR Cindy Garcia MD LAB - COAGULATION OR DERABLES [facility] [address] [place] [address], [facility] [phone] * URIC ACID BLOOD (04/01/2024 3:12 PM INSTRUMENT CALIBRATOR) Only the most recent of4 resultswithin the time period is included. Uric Acid 4.0 3.5 - 7.2 mg/dL 04/01/2024 5:52 PM INSTRUMENT CALIBRATOR [facility] Blood BLOOD SPECIMEN / Unknown Lab Venipuncture / Unknown 04/01/2024 3:12 PM INSTRUMENT CALIBRATOR 04/01/2024 5:30 PM INSTRUMENT CALIBRATOR Cindy Garcia MD LAB - CHEMISTRY CHELI MONREAL [facility] [address] [place] [address], [facility] [phone] * ERYTHROPOIETIN (04/01/2024 3:12 PM INSTRUMENT CALIBRATOR) Erythropoietin 22 4 - 27 mU/mL 04/02/2024 11:36 AM INSTRUMENT CALIBRATOR [employer] ([facility]) Comment: INTERPRETIVE INFORMATION: Erythropoietin Normal serum [...] may benefit from therapy with recombinant EPO ([facility] [id number],1989). Performed By: [facility] [address] [place] [address] Direct Marketing Manager: Uche Morley MD, PhD CLIA Number: [id number] Blood BLOOD SPECIMEN / Unknown Lab Venipuncture / Unknown 04/01/2024 3:12 PM INSTRUMENT CALIBRATOR 04/01/2024 3:22 PM INSTRUMENT CALIBRATOR Cindy Garcia MD LAB - CHEMISTRY CHELI MONREAL [facility] [employer] [facility]) [address] [place] [address], [facility] * SOLUBLE TRANSFERRIN RECEPTOR (04/01/2024 3:12 PM INSTRUMENT CALIBRATOR) [facility] Soluble Transferrin Receptor 3.3 2.2 - 5.0 mg/L 04/02/2024 9:13 PM INSTRUMENT CALIBRATOR [facility] [employer] ([facility]) Comment: INTERPRETIVE INFORMATION: Soluble Transferrin Receptor [...] Fe Status High Normal High Performed By: [facility] [address] [place] [address] Direct Marketing Manager: Uche Morley MD, PhD CLIA Number: [id number] Blood BLOOD SPECIMEN / Unknown Lab Venipuncture / Unknown 04/01/2024 3:12 PM INSTRUMENT CALIBRATOR 04/01/2024 3:22 PM INSTRUMENT CALIBRATOR Cindy Garcia MD LAB - CHEMISTRY CHELI MONREAL [facility] ([facility]) [address] [place] [address], [facility] * PHOSPHORUS BLOOD (04/01/2024 3:12 PM INSTRUMENT CALIBRATOR) Only the most recent of4 resultswithin the time period is included. Phosphorus 2.9 2.8 - 5.1 mg/dL 04/01/2024 5:52 PM INSTRUMENT CALIBRATOR [facility] Blood BLOOD SPECIMEN / Unknown Lab Venipuncture / Unknown 04/01/2024 3:12 PM INSTRUMENT CALIBRATOR 04/01/2024 5:30 PM INSTRUMENT CALIBRATOR Cindy Garcia MD LAB - CHEMISTRY CHELI MONREAL Performing Organization Address [facility] Co de Phone Number [address] [address], [facility] [phone] * MAGNESIUM BLOOD (04/01/2024 3:12 PM INSTRUMENT CALIBRATOR) Only the most recent of4 resultswithin the time period is included. Magnesium 2.1 1.6 - 2.6 mg/dL 04/01/2024 4:25 PM INSTRUMENT CALIBRATOR [facility] Comment:Hemolysis detected i n this specimen. Hemolysis is known to cause elevations in this analyte. Caution should be exercised in the interpretation of this result. Recommend repeat testing if clinically indicated. Blood BLOOD SPECIMEN / Unknown Lab Venipuncture / Unknown 04/01/2024 3:12 PM INSTRUMENT CALIBRATOR 04/01/2024 3:36 PM INSTRUMENT CALIBRATOR Cindy Garcia MD LAB - CHEMISTRY CHELI MONREAL Performing Organization Address City/[facility]/ZIP Co de Phone Number [address] [address], [facility] [phone] * LAB RESULTS ORDER (03/25/2024) 03/25/2024 Narrative 03/25/2024 Ordered by an unspecified provider. Scanned Document LAB - THERAPEUTIC DR VANCE MONITORING ORDERABLES * PTT [facility] (03/23/2024 12:25 AM INSTRUMENT CALIBRATOR) Only the most recent of2 resultswithin the time period is included. APTT 35.4 23.0 - 38.4 Seconds 03/23/2024 1:31 AM INSTRUMENT CALIBRATOR [facility] Comment:Suggested therapeuti c range for full dose I.V. unfractionated heparin therapy for venous thromboembolism is 71 to 109 seconds. Blood BLOOD SPECIMEN / Unknown Venipuncture / Unknown 03/23/2024 12:25 AM INSTRUMENT CALIBRATOR 03/23/2024 1:05 AM INSTRUMENT CALIBRATOR Ghanshyam Dewey PA-C LAB - COAGULATION OR DERABLES Performing Organization Address City/State/[facility] Co de Phone Number [facility] [address] [place] [address], [facility] [phone] from Last 3 Months Advance Directives * Full Code (Latest Code Status on File) Date Activated Date Inactivated Comments 03/13/2024 9:41 PM 03/23/2024 2:56 PM Care Teams Baggage Checker Relationship Specialty Start Date End Date Timothy Banks MD [address] [place] [phone] PCP - General 10/19/18 Cindy Garcia MD [address] [place] [address] Event Organizer/Oncologis t Hematology and Oncology 03/24/24
--- OUTSIDE RECORDS SUMMARY | 2024-06-20 13:25 | XMS_ITS | Encounter Summary ---
Author Organization [facility] [employer] [facility] Address [address] [place] [address] Care Team Providers Care Television Cable Installer Name Role Phone Timothy Banks MD Primary Care Provider [phone] Encounter Details Date Type Department Care Team (Late st Contact Info) Description 06/18/2024 Orders Only [facility] Oncology and Hematology - [place] [address] [place] [address] [address] [place] [address] Frank Singh MD [address] [place] [address] 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) Social History Tobacco Use Types Packs/Day Years Used Date Smoking Tobacco: Never Smokeless Tobacco: Never Alcohol Use Standard Drinks/Week Comments Yes 0 (1 standard drink = 0.6 oz pur e alcohol) Very Ocasionally Sex and Gender Information Value Date Recorded Sex Assigned at Male 04/05/2024 3:07 PM FACILITIES MAINTENANCE WORKER Legal Sex Male 10:53 AM CDT Gender Identity Male 04/05/2024 3:07 PM FACILITIES MAINTENANCE WORKER Sexual Orientation Not on file documented as of this encounter Plan of Treatment Not on file documented as of this encounter Visit Diagnoses Diagnosis 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 [address] PCP - General Family Practice 02/01/24 documented as of this encounter
--- OUTSIDE RECORDS SUMMARY | 2024-06-20 13:25 | XMS_ITS | Encounter Summary ---
Author Organization [facility] Address [address] [facility] [place] [address] Care Team Providers Care Business Team Leader Name Role Phone Timothy Banks MD Primary Care Provider [phone] Cindy Garcia MD Unavailable Reason for Visit * Reason Comments Refill Request Encounter Details Date Type Department Care Team (Late st Contact Info) Description 06/18/2024 Refill [facility] - Hematology/Oncology [address] [place] [address] Cindy Garcia MD [address] [place] [address] Refill Request Social History Tobacco Use Types Packs/Day Years Used Date Smoking Tobacco: Never Passive Smoke Exposure: Never Smokeless Tobacco: Never Alcohol Use Standard Drinks/Week Comments Not Currently [...] and heating? Not hard at all 03/13/2024 [facility] [place] [facility] - Occupational Stress [...] any time in the past 12 m [facility], were you homeless or living in a senior care (including now)? No 03/13/2024 Sex and Gender Information Value Date Recorded Sex Assigned at Male 03/05/2024 8:04 AM HOME CARE GIVER Gender Identity Male 03/05/2024 8:04 AM HOME CARE GIVER Sexual Orientation Straight 03/05/2024 8: 04 AM HOME CARE GIVER documented as of this encounter Functional Status [...] person have difficulty concentrating/remembering/making decisions? No 04/11/2024 documented as of this encounter Plan of Treatment Upcoming Encounters Date Type Department Care Team (Late st Contact Info) Description 06/24/2024 9:00 AM CDT Hospital Encounter [facility] [address] [place] [address] 06/24/2024 9:40 AM CDT Office Visit [facility] - Hematology/Oncology [address] [place] [phone] Stephanie Connolly APRN-CNP [address] [place] [phone] 06/25/2024 10:00 AM CDT Hospital Encounter [facility] [address] [place] [address] 06/26/2024 8:30 AM CDT Hospital Encounter [facility] [address] [place] [address] 06/27/2024 9:30 AM CDT Appointment [facility] [address] [place] [address] 06/28/2024 9:30 AM CDT Appointment [facility] [address] [place] [address] 07/22/2024 9:20 AM CDT Appointment [facility] [address] [place] [address] Timothy Banks MD [address] [place] [address] 07/22/2024 10:00 AM CDT Office Visit [facility] - Hematology/Oncology [address] [place] [phone] Cindy Garcia MD [address] [place] [address] documented as of this encounter Visit Diagnoses Diagnosis 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
--- OUTSIDE RECORDS SUMMARY | 2024-06-20 13:25 | XMS_ITS | Encounter Summary ---
Author Organization [facility] Address [address] [facility] [place] [address] Care Team Providers Care Hand Bunch Maker Name Role Phone Timothy Banks MD Primary Care Provider [phone] Cindy Garcia MD Unavailable Encounter Details Date Type Department Care Team (Late st Contact Info) Description 02/12/2024 Lab Requisition [facility] - Pathology Lab [address] [place] [address] Rommel Dinh MD [address] [facility] [address] [place] [address] Decreased white blood cell count, unspecified Social History Tobacco Use Types Packs/Day Years Used Date Smoking Tobacco: Never Assessed Sex and Gender Information Value Date Recorded Sex Assigned at Male 03/05/2024 8:04 AM CONSTRUCTION COST ESTIMATOR Gender Identity Male 03/05/2024 8:04 AM CONSTRUCTION COST ESTIMATOR Sexual Orientation Straight 03/05/2024 8: 04 AM CONSTRUCTION COST ESTIMATOR documented as of this encounter Plan of Treatment Upcoming Encounters Date Type Department Care Team (Late st Contact Info) Description 06/24/2024 9:00 AM CDT Hospital Encounter [facility] [address] [place] [address] 06/24/2024 9:40 AM CDT Office Visit [facility] - Hematology/Oncology [address] [place] [phone] Stephanie Connolly APRN-FAISAL [address] [place] [phone] 06/25/2024 10:00 AM CDT Hospital Encounter [facility] [address] [place] [address] 06/26/2024 8:30 AM CDT Hospital Encounter [facility] [address] [place] [address] 06/27/2024 9:30 AM CDT Appointment [facility] [address] [place] [address] 06/28/2024 9:30 AM CDT Appointment [facility] [address] [place] [address] 07/22/2024 9:20 AM CDT Appointment [facility] [address] [place] [address] Timothy Banks MD [address] [place] [phone] 07/22/2024 10:00 AM CDT Office Visit [facility] - Hematology/Oncology [address] [place] [phone] Cindy Garcia MD [address] [place] [address] documented as of this encounter Procedures Procedure Name Priority Date/Time Associated Diagnosis Comments FLOW CYTOMETRY BONE MARROW Routine 02/12/2024 9:20 AM CONSTRUCTION COST ESTIMATOR Decreased white blood cell count, unspecified documented in this encounter Results * FLOW CYTOMETRY BONE MARROW (02/12/2024 9:20 AM CONSTRUCTION COST ESTIMATOR) Case Report Flow Cytometry Case: [id number] Authorizing Provider: Rommel Dinh Collected: 02/12/2024 09:20 AM MD Luke Ordering Location: [facility] Physician [facility] - Received: 02/12/2024 12:12 PM Pathology Lab Pathologist: Daniela Bronson MD Specimen: Bone Marrow 02/12/2024 3:44 PM [facility] PATHOLOGY [...] discussed with Dr. Morton on 02/12/2024 at 1530. 02/12/2024 3:44 PM [facility] PATH[facility] Flow Cytometry Interpretation Viability: 97% [...] flow cytometry specimen has been reviewed for clinical quality assurance associate purposes. Review the bone marrow aspirate smears reveals 20% blasts with only rare promyelocytes identified. Carolyn rods are not seen. 02/12/2024 3:44 PM [facility] Flow Cytometry Results Differential Result Comment Flow Cell Count /uL 20,700 Total Viability % 97.0 Lymphocytes % 12 Dim CD45 Region % 44 Monocytes % 1 Granulocytes % 42 02/12/2024 3:44 PM [facility] Reason for test Decreased white blood cell count, unspecified 02/12/2024 3:44 PM [facility] Client Specimen ID # [id number] 02/12/2024 3:44 PM [facility] Number of markers 29 were [...] CD56 A-20 Flow CD64 A-28 cyCD22 A-29 wgHN69r A-16 Dunlo+CD19+ A-17 Lambda+CD19+ A-24 Flow HLA-DR A-25 Flow MPO A-26 Flow TdT A-27 cyCD3 02/12/2024 3:44 PM [facility] Pathologist Location at [facility] 02/12/2024 3:44 PM [facility] PATH[facility] LAB Disclaimer Test performed at [facility], [address] [place] [address], [facility]. *The established laboratory minimum viability is 70%. [...] high complexity clinical testing. 02/12/2024 3:44 PM [facility] PATH[facility] LAB Embedded Images 3:44 PM [facility] Pathology/Cytolo gy BONE MARROW SPECIMEN / Unknown 02/12/2024 9:20 AM CONSTRUCTION COST ESTIMATOR 02/12/2024 12:12 PM CONSTRUCTION COST ESTIMATOR Rommel Dinh MD LAB - PATHO LOGY/CYTOLOGY ORDERABLES [facility] [address] [place] [address]. [place] [address], [place] [phone] documented in this encounter Visit Diagnoses Diagnosis Decreased white blood cell count, unspecified documented in this encounter Care Teams Hand Bunch Maker Relationship Specialty Start Date End Date Timothy Banks MD [address] [place] [phone] PCP - General 10/19/18 Cindy Garcia MD [address] [place] [address] Filter Cleaner/Oncologis t Hematology and Oncology 03/24/24 documented as of this encounter
--- OUTSIDE RECORDS SUMMARY | 2024-06-20 13:25 | XMS_ITS ---
Author Organization [facility] Address [address] [facility] [place] [address] Care Team Providers Care [employer] Science Teacher Name Role Phone Timothy Banks MD Primary Care Provider [phone] Cindy Garcia MD Unavailable Active Problems Problem [...] 1 , Cycle 4 - Planned for 06/24/2024) Next Day (Day 2, Cycle 4 - Planned for 06/25/2024) decitabine (Dacogen) infusionvenetoclax (Venclexta) decitabine (Dacogen) 45 [...] treatments are documented for this patient in [facility]. Treatments may have been administered in another system.
--- OUTSIDE RECORDS SUMMARY | 2024-06-20 13:25 | XMS_ITS | Encounter Summary ---
Author Organization [facility] Address [address] [place] [address] Care Team Providers Care Network Contract Manager Name Role Phone Timothy Banks MD Primary Care Provider [phone] Cindy Garcia MD Unavailable Encounter Details Date Type Department Care Team (Late st Contact Info) Description 02/13/2024 Lab Requisition [facility] - Pathology Lab [address] [place] [address] Rommel Dinh MD [address] [facility] [address] [place] [address] Illness, unspecified Social History Tobacco Use Types Packs/Day Years Used Date Smoking Tobacco: Never Assessed Sex and Gender Information Value Date Recorded Sex Assigned at Male 03/05/2024 8:04 AM ADULT NEUROPSYCHOLOGIST Gender Identity Male 03/05/2024 8:04 AM ADULT NEUROPSYCHOLOGIST Sexual Orientation Straight 03/05/2024 8: 04 AM ADULT NEUROPSYCHOLOGIST documented as of this encounter Plan of Treatment Upcoming Encounters Date Type Department Care Team (Late st Contact Info) Description 06/24/2024 9:00 AM CDT Hospital Encounter [facility] [address] [place] [address] 06/24/2024 9:40 AM CDT Office Visit [facility] - Hematology/Oncology [address] [place] [phone] Stephanie Connolly APRN-THERAPY MANAGER [address] [place] [address] 06/25/2024 10:00 AM CDT Hospital Encounter [facility] [address] [place] [address] 06/26/2024 8:30 AM CDT Hospital Encounter [facility] [address] [place] [address] 06/27/2024 9:30 AM CDT Appointment [facility] [address] [place] [address] 06/28/2024 9:30 AM CDT Appointment [facility] [address] [place] [address] 07/22/2024 9:20 AM CDT Appointment [facility] [address] [place] [address] Timothy Banks MD [address] [place] [phone] 07/22/2024 10:00 AM CDT Office Visit [facility] - Hematology/Oncology [address] [place] [phone] Cindy Gacria MD [address] [place] [address] documented as of this encounter Procedures Procedure Name Priority Date/Time Associated Diagnosis Comments BONE MARROW BIOPSY (STL) Routine 02/12/2024 9:20 AM ADULT NEUROPSYCHOLOGIST Illness, unspecified documented in this encounter Results * BONE MARROW BIOPSY (STL) (02/12/2024 9:20 AM ADULT NEUROPSYCHOLOGIST) Case Report Bone Marrow Patholog y Report Case: [id number] Authorizing Provider: Rommel Dinh Collected: 02/12/2024 09:20 AM MD Luke Ordering Location: [facility] Physician [facility] - Received: 02/13/2024 12:34 PM Pathology Lab Pathologist: Dnaiela Bronson MD Specimens: A) - Bone Marrow Clot B) - Bone Marrow Core 02/14/2024 1:43 PM [facility] Final Diagnosis Bone marrow, iliac crest, core biopsy, clot section, and aspirate: - Increased myeloblasts (up to 30% by morphology) with mild trilineage dyspoiesis involving a hypercellular bone marrow (70-80% cellular), see comment - Absent iron stores - 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 02/14/2024 1:43 PM [facility] Peripheral Smear Description The patient's [...] including numerous giant platelets. 02/14/2024 1:43 PM [facility] Bone Marrow Aspirate Differential count [...] stain): no ring sideroblasts. 02/14/2024 1:43 PM [facility] Bone Marrow Core Biopsy and [...] similar to core biopsy. 02/14/2024 1:43 PM [facility] Flow Cytometry Summary Flow cytometry identified 35% myeloblasts and no diagnostic immunophenotypic evidence of monoclonal B-cells, an aberrant T-cell population, or plasma cell neoplasm ([id number]). 02/14/2024 1:43 PM [facility] Clinical History Chronic leukopenia 02/14/2024 1:43 PM [facility] Materials Received Received are 19 slide(s) and 3 blocks labeled [id number] along with a copy of the outside pathology report. [place] [address]. All original materials are returned to the referring institution, along with a copy of our final report. 02/14/2024 1:43 PM [facility] Microscopic Description CD34 immunohistochemistry stains [...] sections reveal absent stores. 02/14/2024 1:43 PM [facility] Pathologist Location at [facility] 02/14/2024 1:43 PM [facility] Disclaimer The performance characteristics of all immunohistochemical and indirect immunofluorescence stains (if any) cited in this report were determined by the Histopathology Laboratory of [facility]. Some of these tests were developed by [...] the attending (teaching) pathologist. 02/14/2024 1:43 PM [facility] Embedded Images 02/14/2024 1:43 PM [facility] Pathology/Cytology BONE MARROW SPECIMEN / Unknown 02/12/2024 9:20 AM ADULT NEUROPSYCHOLOGIST 02/13/2024 12:34 PM ADULT NEUROPSYCHOLOGIST Miscellaneous samples (specimen) BONE MARROW SPECIMEN / Unknown 02/12/2024 9:20 AM ADULT NEUROPSYCHOLOGIST 02/13/2024 12:34 PM ADULT NEUROPSYCHOLOGIST Rommel Dinh MD LAB - PATHO LOGY/CYTOLOGY ORDERABLES [facility] LAB [address] [place], [place] [address] [phone] documented in this encounter Visit Diagnoses Diagnosis Illness, unspecified documented in this encounter Care Teams Network Contract Manager Relationship Specialty Start Date End Date Timothy Banks MD [address] [place] [address] PCP - General 10/19/18 Cindy Garcia MD [address] [place] [address] Gas Truck Driver/Oncologis t Hematology and Oncology 03/24/24 documented as of this encounter
--- OUTSIDE RECORDS SUMMARY | 2024-06-20 13:25 | XMS_ITS | Clinical Summary ---
Author Organization [facility] Address [address] [place] [address] Care Team Providers Care Working Manager Name Role Phone Timothy Banks MD Primary Care Provider [phone] Cindy Garcia MD Unavailable Source Comments [facility],non-owned Affiliates and Associated Physician Practices is amultiple site organization consisting of ambulatory clinics and hospital sitesin [place], [place], [place] and [place]. This disclosure is being madepursuant to the Care Everywhere program and may not contain all information available regarding this patient. Last updated 17.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); Neutropenia, unspecified type (HCC) 06/17/2024 9:07 AM CDT - 06/17/2024 11:59 PM CDT Hospital Encounter [facility] [address] [address] Timothy Banks MD Discharge Disposition: Home or Self Care 06/17/2024 Travel 05/30/2024 11:00 AM [employer] Office Visit [facility] - Hematology/Oncolog y [address] [place] [phone] Cindy Garcia MD 05/30/2024 10:20 AM [employer] - 05/30/2024 11:59 PM [employer] Hospital Encounter [facility] [address] [phone] Cindy Garcia MD Discharge Disposition: Home or Self Care 05/30/2024 Travel 05/28/2024 Orders Only [facility] - Hematology/Oncolog y [address] [place] [phone] Nikole Chou, denier control operator myeloid leuk w multilin dysplasia, not achieve remis (HCC) 05/22/2024 8:40 AM [employer] - 05/22/2024 11:59 PM [employer] Hospital Encounter [facility] [address] [place] [phone] Timothy Banks MD Discharge Disposition: Home or Self Care 05/22/2024 Travel 05/21/2024 9:00 AM [employer] - 05/21/2024 11:59 PM [employer] Hospital Encounter [facility] [address] [place] [phone] Timothy Banks MD Discharge Disposition: Home or Self Care 05/20/2024 9:30 AM [employer] - 05/20/2024 11:59 PM [employer] Hospital Encounter [facility] [address] [place] [phone] Cindy Garcia MD Discharge Disposition: Home or Self Care 05/20/2024 Travel 05/17/2024 8:58 AM [employer] - 05/17/2024 11:59 PM [employer] Hospital Encounter [facility] [address] [place] [phone] Cindy Garcia MD Discharge Disposition: Home or Self Care 05/16/2024 9:40 AM [employer] Office Visit [facility] - Hematology/Oncolog y [address] [place] [phone] Stephanie Connolly APRN-FAISAL Acute myeloid leuk w multilin dysplasia, 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); Chronic kidney disease, unspecified CKD stage; Neutropenia, unspecified type (HCC) 05/16/2024 8:49 AM [employer] - 05/16/2024 11:59 PM [employer] Hospital Encounter [facility] [address] [place] [phone] Cindy Garcia MD Discharge Disposition: Home or Self Care 05/16/2024 Telephone [facility] - Hematology/Oncolog y [address] [place] [phone] Stephanie Connolly APRN-CNP Follow-up (Error/) 05/16/2024 Travel 05/15/2024 12:32 PM [employer] - 05/15/2024 11:59 PM [employer] Hospital Encounter [facility] [address] [place] [phone] Cindy Garcia MD Kunkle, Kelly, APRN-CNP Discharge Disposition: Home or Self Care 05/15/2024 Travel 05/13/2024 Refill [facility] - Hematology/Oncolog y [address] [place] [address] Cindy Garcia MD MEDICATION REFILL 05/02/2024 1:30 PM [employer] Video Visit [facility] - Hematology/Oncolog y [address] [place] [phone] Cindy Garcia MD 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) 05/01/2024 Orders Only [facility] - Hematology/Oncolog y [address] [place] [address] Cindy Garcia MD 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) 04/22/2024 12:45 PM [employer] - 04/22/2024 11:59 PM [employer] Hospital Encounter [facility] E[facility]OLTER [address] [place] [address] Cindy Garcia MD Discharge Disposition: Home or Self Care 04/22/2024 9:38 AM [employer] - 04/22/2024 12:44 PM [employer] Hospital Encounter [facility] [address] [place] [address] Unknown, Provider Discharge Disposition: Home or Self Care 04/22/2024 Travel 04/22/2024 Refill [facility] - Hematology/Oncolog y [address] [place] [address] Cindy Garcia MD Refill Request 04/22/2024 Orders Only [facility] - Hematology/Oncolog y [address] [place] [address] Tg Amezcua, RN 04/22/2024 Orders Only [facility] - Hematology/Oncolog y [address] [place] [phone] Tg Amezcua, RN 04/22/2024 Telephone [facility] - Hematology/Oncolog y [address] [place] [address] Nikole Chou, RN Appointment 04/19/2024 9:58 AM [employer] - 04/19/2024 11:59 PM [employer] Hospital Encounter [facility] [address] [place] [phone] Unknown, Provider Discharge Disposition: Home or Self Care 04/19/2024 Travel 04/18/2024 10:30 AM [employer] Office Visit [facility] - Hematology/Oncolog y [address] [place] [phone] Cindy Garcia MD 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) 04/18/2024 9:32 AM [employer] - 04/18/2024 11:59 PM [employer] Hospital Encounter [facility] [address] [place] [phone] Unknown, Provider Discharge Disposition: Home or Self Care 04/18/2024 Travel 04/17/2024 10:32 AM [employer] - 04/17/2024 11:59 PM [employer] Hospital Encounter [facility] [address] [place] [phone] Timothy Banks MD Discharge Disposition: Home or Self Care 04/16/2024 10:00 AM [employer] - 04/16/2024 11:59 PM [employer] Hospital Encounter [facility] [address] [place] [phone] Unknown, Provider Discharge Disposition: Home or Self Care 04/15/2024 Orders Only [facility] [address] [place] [phone] Cindy Garcia MD 04/11/2024 5:49 AM [employer] - 04/11/2024 11:05 AM [employer] Hospital Encounter [facility] [address] [place] [phone] Cindy Garcia MD [facility] Radiology Discharge Disposition: Home or Self Care 04/10/2024 Orders Only [facility] [address] [place] [phone] Cindy Garcia MD Chronic kidney disease, unspecified CKD stage 04/05/2024 Orders Only [facility] [address] [place] [phone] Cindy Garcia MD 04/04/2024 Telephone [facility] - Hematology/Oncolog y [address] [place] [phone] Cindy Garcia MD Medication Prior Auth Request 04/01/2024 3:09 PM [employer] - 04/01/2024 11:59 PM [employer] Hospital Encounter [facility]RAWST[facility] [address] [facility] [place] [address] Discharge Disposition: Home or Self Care 04/01/2024 2:00 PM [employer] Office Visit [facility] - Hematology/Oncolog y [address] [place] [phone] Cindy Garcia MD 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) 04/01/2024 Orders Only [facility] [address] [place] [phone] Cindy Garcia MD Tumor lysis syndrome (HCC) 04/01/2024 Travel 04/01/2024 Orders Only [facility] [address] [place] [phone] Cindy Garcia MD Acute myeloid leukemia 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) 03/25/2024 Orders Only [facility] [address] [place] [phone] Ekta Ferro, HUMAN RESOURCE INTERNSHIP-RIP AND GROOVE MACHINE OPERATOR 03/25/2024 Orders Only [facility] - Hematology/Oncolog y [address] [place] [phone] Cindy Garcia MD Acute myeloid leuk w multilin dysplasia, 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 [address] [place] [phone] Adamaris Jesus, retail office manager 03/13/2024 7:14 PM [employer] - 03/23/2024 1:56 PM [employer] Hospital Encounter [facility] 7N ACUTE [address] [place] [phone] Cindy Garcia MD Kumar, Ashwath, MD Schrader, Kevin Michael, MD Masud, Josh Chavez, MD Internal Medicine Discharge Disposition: Home or Self Care from Last 3 Months Social History Tobacco [...] and heating? Not hard at all 03/13/2024 [facility] - Occupational Stress Questionnaire Answer Date Recorded [...] were you homeless or living in a mcfp (including now)? No 03/13/2024 Sex and Gender Information Value Date Recorded Sex Assigned at Male 03/05/2024 8:04 AM [employer] Gender Identity Male 03/05/2024 8:04 AM [employer] Sexual Orientation Straight 03/05/2024 8: 04 AM [employer] Last Filed Vital Signs Vital Sign [...] Height 182.9 cm (6') 05/15/2024 12:50 PM [employer] Body Mass Index 28.48 05/15/2024 12:50 PM [employer] Plan of Treatment Upcoming Encounters Date Type Department Care Team (Late st Contact Info) Description 06/24/2024 9:00 AM CDT Hospital Encounter [facility] [address] [place] [phone] 06/24/2024 9:40 AM CDT Office Visit [facility] - Hematology/Oncology [address] [place] [phone] Stephanie Connolly APRN-RIP AND GROOVE MACHINE OPERATOR [address] [place] [phone] 06/25/2024 10:00 AM CDT Hospital Encounter [facility] [address] [place] [phone] 06/26/2024 8:30 AM CDT Hospital Encounter [facility] [address] [place] [phone] 06/27/2024 9:30 AM CDT Appointment [facility] [address] [place] [phone] 06/28/2024 9:30 AM CDT Appointment [facility] [address] [place] [phone] 07/22/2024 9:20 AM CDT Appointment [facility] [address] [place] [address] Timothy Banks MD [address] [place] [address] 07/22/2024 10:00 AM CDT Office Visit [facility] - Hematology/Oncology [address] [place] [phone] Cindy Garcia MD [address] [place] [address] Health Maintenance Due Date Last Done Comments [...] complete this topic MENINGOCOCCAL (Group B) VACCINE SHARED DECISION-MAKING Aged Out No longer eligible based on patient's age to complete this topic MENINGOCOCCAL GROUPS A/C/Y/W VACCINE Aged Out No longer eligible based on patient's age to complete this topic Medical Devices Implanted Type Area Software Installer Device Identifier Shelf Expiration Date Model / Serial / Lot Port Implinfn Powerport Clrvu Argd Kandy Implanted:Qty : 1 on 04/11/2024 by Davian Marshall MD at 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) COMPREHENSIVE METABOLIC PANEL Routine 05/30/2024 11:05 AM [employer] Acute myeloid leuk w multilin dysplasia, 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) CBC W AUTO DIFFERENTIAL Routine 05/30/19 11:05 AM [employer] Acute myeloid leuk w multilin dysplasia, 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) DIFFERENTIAL MANUAL Routine 05/20/2024 9 :42 AM [employer] Acute myeloid leuk w multilin dysplasia, 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) COMPREHENSIVE METABOLIC PANEL Routine 05/20/2024 9:42 AM [employer] Acute myeloid leuk w multilin dysplasia, 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) CBC W AUTO DIFFERENTIAL Routine 05/20/19 9:42 AM [employer] Acute myeloid leuk w multilin dysplasia, 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) DIFFERENTIAL MANUAL Routine 05/16/2024 9 :03 AM [employer] Acute myeloid leuk w multilin dysplasia, 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) COMPREHENSIVE METABOLIC PANEL Routine 05/16/2024 9:03 AM [employer] Acute myeloid leuk w multilin dysplasia, 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) CBC W AUTO DIFFERENTIAL Routine 05/16/19 9:03 AM [employer] Acute myeloid leuk w multilin dysplasia, 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) CHROMOSOME ANALYSIS BONE MARROW PANEL Routine 05/15/2024 1:35 PM [employer] Acute myeloid leuk w multilin dysplasia, 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) MDS (myelodysplastic syndrome) (HCC) FLOW CYTOMETRY BONE MARROW Routine 05/15/2024 1:35 PM [employer] Acute myeloid leuk w multilin dysplasia, 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) MDS (myelodysplastic syndrome) (HCC) BONE MARROW BIOPSY (STL) Routine 05/15/2024 1:35 PM [employer] Acute myeloid leuk w multilin dysplasia, 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) MDS (myelodysplastic syndrome) (HCC) LAB MISC TEST (NOT BLOOD) Routine 05/15/2024 1:35 PM [employer] Acute myeloid leuk w multilin dysplasia, 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) MDS (myelodysplastic syndrome) (HCC) LAB MISC TEST (NOT BLOOD) Routine 05/15/2024 1:35 PM [employer] Acute myeloid leuk w multilin dysplasia, 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) MDS (myelodysplastic syndrome) (HCC) DIFFERENTIAL MANUAL Routine 05/15/2024 1 :01 PM [employer] Acute myeloid leuk w multilin dysplasia, 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) MDS (myelodysplastic syndrome) (HCC) CBC W AUTO DIFFERENTIAL Routine 05/15/19 25 1:01 PM [employer] Acute myeloid leuk w multilin dysplasia, 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) MDS (myelodysplastic syndrome) (HCC) EKG 12-LEAD Routine 04/22/2024 1:27 PM [employer] Acute myeloid leukemia 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) DIFFERENTIAL MANUAL Routine 04/22/2024 1 0:11 AM [employer] Acute myeloid leuk w multilin dysplasia, 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) COMPREHENSIVE METABOLIC PANEL Routine 04/22/2024 10:11 AM [employer] Acute myeloid leuk w multilin dysplasia, 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) CBC W AUTO DIFFERENTIAL Routine 04/22/19 10:11 AM [employer] Acute myeloid leuk w multilin dysplasia, 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) COMPREHENSIVE METABOLIC PANEL Routine 04/18/2024 9:48 AM [employer] Acute myeloid leuk w multilin dysplasia, 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) CBC W AUTO DIFFERENTIAL Routine 04/18/19 9:48 AM [employer] Acute myeloid leuk w multilin dysplasia, 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) QUANTIFERON-TB GOLD PLUS 4-TUBE Routine 04/16/2024 1:43 PM [employer] LDH BLOOD Routine 04/16/2024 10:26 AM [employer] Tumor lysis syndrome (HCC) COMPREHENSIVE METABOLIC PANEL Routine 04/16/2024 10:26 AM [employer] Acute myeloid leuk w multilin dysplasia, 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) CBC W AUTO DIFFERENTIAL Routine 04/16/19 10:26 AM [employer] Acute myeloid leuk w multilin dysplasia, 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) COMPREHENSIVE METABOLIC PANEL Routine 04/11/2024 10:54 AM [employer] Acute myeloid leuk w multilin dysplasia, 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) CBC W AUTO DIFFERENTIAL Routine 04/11/19 10:54 AM [employer] Acute myeloid leuk w multilin dysplasia, 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) IR AUDREY CATH INSERT Routine 04/11/2024 9:45 AM [employer] Acute myeloid leukemia 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) PT-INR [facility] STAT 04/11/2024 7:20 AM [employer] Acute myeloid leukemia 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) MDS (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, 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) PHOSPHORUS BLOOD Routine 04/01/2024 3:12 PM [employer] Tumor lysis syndrome (HCC) URIC ACID BLOOD Routine 04/01/2024 3:12 PM [employer] Tumor lysis syndrome (HCC) DIFFERENTIAL MANUAL Routine 04/01/2024 3 :12 PM [employer] Acute myeloid leukemia 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) MAGNESIUM BLOOD Routine 04/01/2024 3:12 PM [employer] Acute myeloid leukemia 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) ERYTHROPOIETIN Routine 04/01/2024 3:12 PM [employer] Acute myeloid leukemia 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) SOLUBLE TRANSFERRIN RECEPTOR Routine 04/01/2024 3:12 PM [employer] Acute myeloid leukemia 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) COMPREHENSIVE METABOLIC PANEL Routine 04/01/2024 3:12 PM [employer] Acute myeloid leukemia 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) CBC W AUTO DIFFERENTIAL Routine 04/01/20 3:12 PM [employer] Acute myeloid leukemia 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) LAB RESULTS ORDER 03/25/2024 DIFFERENTIAL MANUAL AM Draw 03/23/2024 1 2:25 AM [employer] MAGNESIUM BLOOD Routine 03/23/2024 12:25 AM [employer] URIC ACID BLOOD Routine 03/23/2024 12:25 AM [employer] PHOSPHORUS BLOOD Routine 03/23/2024 12:2 5 AM [employer]ACH COMPREHENSIVE METABOLIC PANEL Routine 03/23/2024 12:25 AM [employer] LDH BLOOD Routine 03/23/2024 12:25 AM [employer] PTT [facility] AM Draw 03/23/2024 12:25 AM [employer] PT-INR [facility] AM Draw 03/23/2024 12:25 AM [employer] CBC W AUTO DIFFERENTIAL AM Draw 03/23/20 12:25 AM [employer] MAGNESIUM BLOOD Routine 03/22/2024 6:20 PM [employer]ACH URIC ACID BLOOD Routine 03/22/2024 6:20 PM [employer] PHOSPHORUS BLOOD Routine 03/22/2024 6:20 PM [employer]ACH COMPREHENSIVE METABOLIC PANEL Routine 03/22/2024 6:20 PM [employer] LDH BLOOD Routine 03/22/2024 6:20 PM [employer] DIFFERENTIAL MANUAL AM Draw 03/22/2024 6 :58 AM [employer] MAGNESIUM BLOOD Routine 03/22/2024 6:58 AM [employer] URIC ACID BLOOD Routine 03/22/2024 6:58 AM [employer] PHOSPHORUS BLOOD Routine 03/22/2024 6:58 AM [employer]ACH COMPREHENSIVE METABOLIC PANEL Routine 03/22/2024 6:58 AM [employer] LDH BLOOD Routine 03/22/2024 6:58 AM [employer] CO[employer] PTT [facility] AM Draw 03/22/2024 6:58 AM [employer] PT-INR [facility] AM Draw 03/22/2024 6:58 AM [employer] CBC W AUTO DIFFERENTIAL AM Draw 03/22/20 6:58 AM [employer] from Last 3 Months Results * (ABNORMAL) DIFFERENTIAL MANUAL (06/17/2024 9:36 AM CDT) Only the most recent of8 resultswithin the time period is included. [facility] Neutrophil % 16(L) 41 - 74 % 06/17/2024 10:48 AM CDT [facility] Lymphocyte % 44 17 - 47 % 06/17/2024 10:48 AM [facility] Monocyte % 38(H) 3 - 11 % 06/17/2024 10:48 AM [facility] Eosinophil % 2 0 - 7 % 06/17/2024 10:48 AM [facility] Neutrophil Absolute 0.13(L) 1.60 - 7.50 x10E9/L 06/17/2024 10:48 AM [facility] Lymphocyte Absolute 0.35(L) 1.00 - 4.40 x10E9/L 06/17/2024 10:48 AM [facility] Monocyte Absolute 0.30 0.15 - 1.00 x10E9/L 06/17/2024 10:48 AM [facility] Eosinophil Absolute 0.02 0.00 - 0.60 x10E9/L 06/17/2024 10:48 AM [facility] RBC Morphology REVIEWED 06/17/2024 10:48 AM [facility] Microcytosis MODERATE(A) (none) 06/17/2024 10:48 AM [facility] Schistocytes MODERATE(A) (none) 06/17/2024 10:48 AM [facility] Large Platelets PRESENT(A) (none) 10:48 AM [facility] Blood BLOOD SPECIMEN / Unknown Venipuncture / Unknown 06/17/2024 9:36 AM CDT 06/17/2024 9:47 AM CDT Cindy Garcia MD LAB - HEMATOLOGY ORD ERABLES [facility] [address] [place] [address], [facility] [phone] * (ABNORMAL) CBC WITH DIFFERENTIAL (06/17/2024 9:36 AM CDT) Only the most recent of12 resultswithin the time period is included. WBC 0.8(LL) 4.0 - 10.7 x10E9/L 06/17/2024 10:52 AM [facility] RBC Count 3.78(L) 4.30 - 5.80 x10E12/L 06/17/2024 10:52 AM [facility] Hemoglobin 11.2(L) 13.3 - 17.5 g/dL 06/17/2024 10:52 AM [facility] Hematocrit 33.9(L) 38.7 - 51.1 % 06/17/2024 10:52 AM [facility] MCV 89.7 80.0 - 98.0 fL 06/17/2024 10:52 AM [facility] MCH 29.6 26.7 - 33.6 pg 06/17/2024 10:52 AM [facility] MCHC 33.0 31.7 - 36.3 g/dL 06/17/2024 10:52 AM [facility] RDW-CV 20.0(H) 11.3 - 14.8 % 06/17/2024 10:52 AM [facility] Platelet Count 164 150 - 420 x10E9/L 06/17/2024 10:52 AM [facility] Preliminary Absolute Neutrophil 0.11(L) 1.60 - 7.50 x10E9/L 06/17/2024 10:52 AM [facility] Blood BLOOD SPECIMEN / Unknown Venipuncture / Unknown 06/17/2024 9:36 AM CDT 06/17/2024 9:47 AM CDT Cindy Garcia MD LAB - HEMATOLOGY ORD ERABLES [address] [address], [facility] [phone] * (ABNORMAL) COMPREHENSIVE METABOLIC PANEL (06/17/2024 9:36 AM CDT) Only the most recent of12 resultswithin the time period is included. BUN 14 7 - 26 mg/dL 06/17/2024 10:44 AM [facility] Creatinine 1.20(H) 0.71 - 1.16 mg/dL 06/17/2024 10:44 AM [facility] Sodium 143 136 - 145 mmol/L 06/17/2024 10:44 AM [facility] Potassium 3.5 3.5 - 4.5 mmol/L 06/17/2024 10:44 AM [facility] Chloride 110(H) 98 - 107 mmol/L 06/17/2024 10:44 AM [facility] CO2 24 22 - 29 mmol/L 06/17/2024 10:44 AM [facility] Glucose 78 70 - 99 mg/dL 06/17/2024 10:44 AM [facility] Calcium 9.1 8.4 - 10.2 mg/dL 06/17/2024 10:44 AM [facility] Protein Total 6.1 6.0 - 8.3 g/dL 06/17/2024 10:44 AM [facility] Albumin 3.6 3.4 - 5.0 g/dL 06/17/2024 10:44 AM [facility] Bilirubin Total 1.0 0.2 - 1.2 mg/dL 06/17/2024 10:44 AM [facility] Alkaline Phosphatase 123 40 - 150 U/L 06/17/2024 10:44 AM [facility] ALT 11 5 - 55 U/L 06/17/2024 10:44 AM [facility] AST 14 5 - 34 U/L 06/17/2024 10:44 AM [facility] Anion Gap 9 6 - 16 06/17/2024 10:44 AM [facility] BUN/Creatinine Ratio 12 7 - 23 06/17/2024 10:44 AM [facility] Osmolality Calculated 295 275 - 295 mOsm/kg 06/17/2024 10:44 AM [facility] Albumin/Globulin Ratio 1.4 1.1 - 2.3 06/17/2024 10:44 AM [facility] eGFR by CKD-EPI 62(L) >=90 mL/min/1.7 3 m2 06/17/2024 10:44 AM [facility] Blood BLOOD SPECIMEN / Unknown Venipuncture / Unknown 06/17/2024 9:36 AM T 06/17/2024 9:47 AM CDT Cindy Garcia MD LAB - CHEMISTRY [facility] Rao Organization Address City/State/ZIP Co de Phone Number [facility] [address] [place] [address], [facility] [phone] * FLOW CYTOMETRY BONE MARROW (05/15/2024 1:35 PM [employer]) Case Report Flow Cytometry Case: [id number] Authorizing Provider: Chapis Prabhakar APRN-CNP Collected: 05/15/2024 01:35 PM Ordering Location: [facility] Received: 05/15/2024 03:04 PM Pathologist: Guillermo Brown MD Specimen: Bone Marrow 05/22/2024 8:46 AM [facility] Addendum 1 This addendum is issued to report the results of minimal residual disease (MRD) flow cytometric analysis performed by the [facility]'s [facility], [address] [place] [address]. B one marrow aspirate - No abnormal [...] part represent peripheral blood. 05/22/2024 8:46 AM [facility] Addendum electronically signed by Angeles Rosado MD on 05/22/2024 at 8:46 AM Final Diagnosis Bone marrow, flow cytometry: - No significant B-cell, increased blast, or immature monocyte population detected 05/22/2024 8:46 AM [facility] Flow Cytometry Interpretation Viability: 75% B-cells: no significant population T-cells: not increased Blasts: not increased, ~1.5% represent CD34+ myeloblasts, ~23% of overall events are mature CD14+/CD64+ monocytes with no immunophenotypic aberrancies. MRD sent: Yes A bone marrow aspirate smear prepared from the flow cytometry specimen has been reviewed for clinical quality assurance associate purposes. 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 A-2 Flow CD10 A-3 Flow CD13 A-5 Flow CD20 A-11 Flow CD2 A-13 Flow CD14 A-16 Flow CD117 A-17 Flow CD11b A-18 Flow CD11c A-1 Flow CD5 A-4 Flow CD19 A-6 Flow CD33 A-7 Flow CD34 A-8 Flow CD45 A-12 Flow CD7 A-14 Flow CD56 A-15 Flow CD64 A-9 [place]+CD19+ A-10 Lambda+CD19+ A-19 Flow HLA-DR 05/22/2024 8:46 AM [facility] Pathologist Location at [facility] 05/22/2024 8:46 AM [facility] Disclaimer Test performed at [facility], [address] [place] [address], [address]. *The established laboratory minimum viability is 70%. [...] high complexity clinical testing. 05/22/2024 8:46 AM [facility] Embedded Images 8:46 AM [facility] Pathology/Cytolo gy BONE MARROW SPECIMEN / Unknown Collection / Unknown 05/15/2024 1:35 PM [employer] 05/15/2024 3:04 PM [employer] Chapis JOLLEY LAB - PATHOLOGY/CY TOLOGY ORDERABLES [facility] [address] [place] [address], [facility] [phone] * BONE MARROW BIOPSY (STL) (05/15/2024 1:35 PM [employer]) Case Report Bone Marrow Patholog y Report Case: [id number] Authorizing Provider: Chapis Prabhakar APRN-CNP Collected: 05/15/2024 01:35 PM Ordering Location: [facility] Received: 05/15/2024 03:04 PM Pathologist: Guillermo Brown MD Specimens: A) - Bone Marrow Clot B) - Bone Marrow Core C) - Bone Marrow Aspirate D) - Blood Peripheral 05/16/2024 3:02 PM [facility] Final Diagnosis Bone marrow, aspirate, clot section, and core biopsy: - Normocellular marrow with marked erythroid hyperplasia, myeloid hypoplasia and monocytic hyperplasia. - No overt acute leukemia seen. - See description. Peripheral blood smear: - Bicytopenia. - See description. 05/16/2024 3:02 PM [facility] Comment The significance of the monocytosis is unclear. By flow cytometry, these appear mature. These likely represent reactive cells. Minimal residual disease flow cytometry is pending. Immunohistochemistry is performed to assess staining cells in an architectural context: CD34 is negative for increased blasts (<2% of marrow cellularity), CD117 highlights early erythroid precursor cells. 05/16/2024 3:02 PM [facility] Peripheral Smear Description RBC: normocytic anemia. WBC: leukopenia with absolute neutropenia and lymphopenia. Platelets: normal in number. 05/16/2024 3:02 PM [facility] Bone Marrow Aspirate Differential [...] stain): no ring sideroblasts. 05/16/2024 3:02 PM [facility] Bone Marrow Core Biopsy [...] similar to core biopsy. 05/16/2024 3:02 PM [facility] Flow Cytometry Summary Bone marrow, flow cytometry ([id number]): - No significant B-cell, increased blast, or immature monocyte population detected 05/16/2024 3:02 PM [facility] Clinical History AML. 05/16/2024 3:02 PM [facility] Gross Description The requisition [...] in cassette B1. /VIVIAN 05/16/2024 3:02 PM [facility] Pathologist Location at [facility] 05/16/2024 3:02 PM [facility] Disclaimer The performance characteristics of all immunohistochemical and indirect immunofluorescence stains (if any) cited in this report were determined by the Histopathology Laboratory of [facility]. Some of these tests were developed [...] the attending (teaching) pathologist. 05/16/2024 3:02 PM [employer] [facility] Embedded Images 05/16/2024 3:02 PM [employer]ACH [facility] Pathology/Cytology PERIPHERAL BLOOD / Unknown Collection / Unknown 05/15/2024 1:35 PM [employer] 05/15/2024 3:04 PM [employer] Miscellaneous samples (specimen) BONE MARROW SPECIMEN / Unknown 05/15/2024 1:35 PM [employer] 05/15/2024 3:04 PM [employer]ACH Miscellaneous samples (specimen) SPECIMEN FROM BONE MARROW OBTAINED BY ASPIRATION / Unknown 05/15/2024 1:35 PM [employer] COACH 05/15/2024 3:04 PM [employer] COACH Miscellaneous samples (specimen) PERIPHERAL BLOOD / Unknown 05/15/2024 1:35 PM [employer] COACH 05/15/2024 3:49 PM [employer] COACH hCapis Prabhakar APRN-RIP AND GROOVE MACHINE OPERATOR LAB - PATHOLOGY/CY TOLOGY ORDERABLES [facility] [address] [phone] * LAB MISC TEST (NOT BLOOD) (05/15/2024 1:35 PM [employer] COACH) Only the most recent of2 resultswithin the time period is included. Test Name AML Panel FISH and Molecular. Additional probes +8 (CEP8) and del(20)(q12) ([id number] 06/18/2024 5:28 AM CDT [facility] NON INTERF Comment:This is an appended report. These results have been appended to a previously final verified report. Test Result See Scanned Report 06/18/2024 5:28 AM CDT [facility] NON INTERF Comment Ref Lab [facility] 06/18/2024 5:28 AM CDT [facility] NON INTERF Comment:This is an appended report. These results have been appended to a previously final verified report. Other BONE MARROW SPECIMEN / Unknown Collection / Unknown 05/15/2024 1:35 PM [employer] 05/15/2024 4:01 PM [employer] COACH Narrative [facility] NON INTERF - 06/18/2024 5:28 AM CDT Waiting for [facility] / (received 06/17/24) Chapis Prabhakar HUMAN RESOURCE INTERNSHIP-RIP AND GROOVE MACHINE OPERATOR LAB - BODY FLUID O RDERABLES [facility] NON INTERF [address] [place] [address], [facility] [phone] * CHROMOSOME ANALYSIS BONE MARROW PANEL (05/15/2024 1:35 PM [employer] COACH) Pathologist [facility] Chromosome Analysis Bone Marrow See Note Normal 05/22/2024 1:12 PM [employer] COACH [facility] ([facility]) Comment: Test Performed: Chromosome Analysis Specimen [...] reviewed and approved by Oliver Muhammad, PhD, [facility] This result has been reviewed and approved by Emily Street MD A portion of this analysis was performed at the following location(s): [facility] CG-KS#2 [employer] Site CG-IN#1 INTERPRETIVE INFORMATION: Chromosome Analysis, Bone Marrow This test was developed and its performance characteristics determined by [facility]. It has not been cleared or approved by the US Food and Drug Administration. This test was performed in a CLIA certified laboratory and is intended for clinical purposes. [facility] Chromosome Analysis Bone Marrow See Note 05/22/2024 1:12 PM [employer]OL B[employer]BALL COACH [email or web address] ([facility]) Comment: Authorized individuals can access the deviantART Enhanced Report with an deviantART Connect account using the following link. Your local lab can assist you in obtaining the patient report if you don't have a Connect account. [email or web address] Performed By: [facility] [address] [place] [address] Auto Parts Clerk: Uche Morley MD, PhD [facility] Number: [id number] Bone marrow BONE MARROW SPECIMEN / Unknown 05/15/2024 1:35 PM [employer] 05/15/2024 3:04 PM [employer]ACH Chapis Prabhakar APRN-RIP AND GROOVE MACHINE OPERATOR LAB - PATHOLOGY/CY TOLOGY ORDERABLES [email or web address] ([facility]) [address] [place] [address], [facility] * EKG 12-LEAD - HOSPITAL PERFORMED (04/22/2024 1:27 PM [employer] COACH) Ventricular Rate 61 BPM [facility]USE Atrial Rate 61 BPM [facility] M[facility] P-R Interval 112 ms [facility] QRS Duration ms 126 ms [facility] Q-T Interval ms 476 ms [facility] QTC Calculation (Bezet) 479 ms [facility] Calculated P [place] 84 degrees [facility] Calculated R [place] 36 degrees [facility] Calculated T [place] -163 degrees [facility] Interpretation EKG NORMAL SINUS RHYTHM NON-SPECIFIC INTRA-VENTRICULA R CONDUCTION BLOCK T WAVE ABNORMALITY, CONSIDER INFERIOR ISCHEMIA T WAVE ABNORMALITY, CONSIDER ANTEROLATERAL ISCHEMIA ABNORMAL ECG WHEN COMPARED WITH ECG OF 18-MAR-2024 13:48, NO SIGNIFICANT CHANGE WAS FOUND Confirmed by HANSEL VASQUES MD ([id number]) on 04/23/2024 8:31:57 AM [facility] 04/22/2024 1:27 PM [employer] 04/23/2024 8:31 AM [employer]ACH Cindy Garcia MD ECG ORDERABLES [facility] * QUANTIFERON-TB GOLD PLUS 4-TUBE (04/16/2024 1:43 PM [employer]ACH) QuantiFERON Mitogen Minus NIL 9.09 IU/mL 04/18/2024 11:11 PM MID[employer] SCHOOL BASEBALL COACH [facility] ([facility]) QuantiFERON Nil Value 0.04 IU/mL 04/18/2024 11:11 PM MIDDLE SCHOOL BASEBALL COACH [facility]) QuantiFERON Plus TB1 Minus NIL 0.00 <=0.34 IU/mL 04/18/2024 11:11 PM MID[employer] SCHOOL BASEBALL COACH [facility] ([facility]) QuantiFERON Plus TB2 Minus NIL 0.00 <=0.34 IU/mL 04/18/2024 11:11 PM MIDDLE SCHOOL BASEBALL COACH [facility] ([facility]) QuantiFERON-TB Gold Plus Negative Negative 04/18/2024 11:11 PM MIDD[employer] SCHOOL BASEBALL COACH [facility] ([facility]) Comment: INTERPRETIVE INFORMATION:Quantiferon TB Gold Plus [...] Mycobacterium tuberculosis Infection -- [place], 2010 (http://www.cdc.gov/mmwr/preview/mmwrhtml/ad4774t1.htm), for more information concerning test performance in low-prevalence populations and use in occupational screening. Performed By: [facility] [address] [place] [id number] [employer] Clerk: Uche Morley MD, PhD CLIA Number: [id number] Blood BLOOD SPECIMEN / Unknown Venipuncture / Unknown 04/16/2024 1:43 PM [employer] COACH 04/16/2024 2:03 PM [employer] COACH Cindy Garcia MD LAB - CHEMISTRY CHELI MONREAL Performing Organization Address City/[facility]/ZIP Co de Phone Number [facility] ([facility]) [address] [place], [place] [address] * LDH BLOOD (04/16/2024 10:26 AM [employer] COACH) Only the most recent of4 resultswithin the time period is included. LDH Total 197 125 - 243 Units/L 04/16/2024 11:14 AM [employer] S[employer]OL BASEBALL COACH [facility] Blood BLOOD SPECIMEN / Unknown Venipuncture / Unknown 04/16/2024 10:26 AM [employer] COACH 04/16/2024 10:48 AM [employer] COACH Cindy Garcia MD LAB - CHEMISTRY CHELI MONREAL [facility] [address] [place] [address], [facility] [phone] * IR Audrey Cath Insert (04/11/2024 9:45 AM [employer] CO[employer]) Anatomical Region Laterality Modality Chest X-Ray Angiograph y 04/11/2024 9:19 AM [employer]OL [employer] COACH Impressions 04/11/2024 3:43 PM [employer]OL B[employer]ALL COACH Impression: Successful placement of a single lumen 8 [place] Islander x 23 cm chest power port via [...] evaluation, please review the evaluation forms in [facility]. For details on monitored clinical parameters during the intra-service sedation time, please review the procedure nurse documentation in [facility]. Report dictated by Eduardo Coleman MD, PhD (student life vice president). > Dictated by Eduardo Coleman MD ([employer] Architect) 04/11/2024 9:19 AM Davian Post DO have personally reviewed and interpreted this examination/study. 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 3.Fluoroscopy-guided placement of single lumen 8 [place] Islander x 23 cm chest power port via [...] draped in the usual sterile manner. A air support operations operator film of chest was obtained, which was [...] DATE/TIME OF EXAM: 04/11/2024 5:49 AM, LOCATION [facility] INDICATION: C92.00: Acute myeloid leukemia not having [...] chest. 3.Fluoroscopy-guided placement of single lumen 8 [place] Islander x 23 cm chestpower port via the [...] and draped inthe usual sterile manner. A air support operations operator film of chest was obtained, which was [...] the procedure well [facility]. There were no immediate complicationsassociated with the procedure. Impression: Successful placement of a single lumen 8 [place] Islander x 23 cmchest power port via the [...] in my presence, and monitored by theformerly [facility]cedure nurse as an independent trained observer who [...] evaluation, please review the evaluation forms in [facility]. For details on monitored clinical parameters during the intra-service sedation time, please review the procedure nurse documentation in [facility]. Report dictated by Eduardo Coleman MD, PhD (student life vice president). > Dictated by Eduardo Coleman MD ([employer] Architect) 04/11/2024 9:19AM Davian Post DO have personally reviewed and interpreted this examination/study. > Interpreting Provider: Davian Marshall DO on 04/11/2024 3:43 PM Cindy Garcia MD IR ORDERABLES * PT-INR [facility] (04/11/2024 7:20 AM [employer] COACH) Only the most recent of3 resultswithin the time period is included. PT 14.6 12.1 - 14.8 Seconds 04/11/2024 7:56 AM [employer] S[employer]OL B[employer]BALL COACH [facility] INR 1.2 See Comment 04/11/2024 7:56 AM MID[employer] S[employer]OL B[employer]BALL COACH [facility] Comment:The suggested therap eutic range for standard coumadin (warfarin) therapy is an INR of 2.0-3.0. For high-risk patients (Mechanical Mitral Valve Prosthesis, etc.), the suggested prophylactic therapeutic range is an INR of 2.5-3.5. Blood BLOOD SPECIMEN / Unknown Venipuncture / Unknown 04/11/2024 7:20 AM [employer]OL B[employer]BALL COACH 04/11/2024 7:23 AM [employer] B[employer]BALL COACH Cindy Garcia MD LAB - COAGULATION OR DERABLES [address] [address], [facility] [phone] * URIC ACID BLOOD (04/01/2024 3:12 PM [employer]OL [employer]ALL COACH) Only the most recent of4 resultswithin the time period is included. Uric Acid 4.0 3.5 - 7.2 mg/dL 04/01/2024 5:52 PM [employer] S[employer]OL B[employer]BALL COACH [facility] Blood BLOOD SPECIMEN / Unknown Lab Venipuncture / Unknown 04/01/2024 3:12 PM [employer]OL B[employer]BALL COACH 04/01/2024 5:30 PM [employer] B[employer]BALL COACH Cindy Garcia MD LAB - CHEMISTRY ORDE RABLES Performing Organization Address City/[facility]/ZIP Co de Phone Number [address] [address], [facility] [phone] * ERYTHROPOIETIN (04/01/2024 3:12 PM MIDD[employer] S[employer]OL B[employer]BALL COACH) Erythropoietin 22 4 - 27 mU/mL 04/02/2024 11:36 AM [employer] S[employer]OL B[employer]BALL COACH MXP[facility] ([facility]) Comment: INTERPRETIVE INFORMATION: Erythropoietin Normal serum [...] benefit from therapy with recombinant EPO ([facility] [phone],1989). Performed By: [facility] [address] [place] [address] [employer] Clerk: Uche Morley MD, PhD CLIA Number: [id number] Blood BLOOD SPECIMEN / Unknown Lab Venipuncture / Unknown 04/01/2024 3:12 PM [employer]OL B[employer]BALL COACH 04/01/2024 3:22 PM [employer]OL B[employer]BALL COACH Cindy Garcia MD LAB - CHEMISTRY ORDE [facility] MOLiquidPlanner [facility]) [address] [place] [address], [facility] * SOLUBLE TRANSFERRIN RECEPTOR (04/01/2024 3:12 PM MIDDLE SCHOOL BASEBALL COACH) [facility] Soluble Transferrin Receptor 3.3 2.2 - 5.0 mg/L 04/02/2024 9:13 PM MIDD[employer] S[employer]OL BASEBALL COACH [facility] [email or web address] ([facility]) Comment: INTERPRETIVE INFORMATION: Soluble Transferrin Receptor [...] Fe Status High Normal High Performed By: [facility] [address] [place] [address] Auto [employer] Clerk: Uche Morley MD, PhD CLIA Number: [id number] Blood BLOOD SPECIMEN / Unknown Lab Venipuncture / Unknown 04/01/2024 3:12 PM [employer]OL B[employer]BALL COACH 04/01/2024 3:22 PM [employer]OL B[employer]BALL COACH Cindy Garcia MD LAB - CHEMISTRY CHELI MONREAL Performing Organization Address City/[facility]/ZIP Co de Phone Number [facility] ([facility]) [address] [place] [phone] [place] [address] * PHOSPHORUS BLOOD (04/01/2024 3:12 PM MIDD[employer] SCHOOL BASEBALL COACH) Only the most recent of4 resultswithin the time period is included. Phosphorus 2.9 2.8 - 5.1 mg/dL 04/01/2024 5:52 PM MIDDLE SCHOOL BASEBALL COACH [facility] Blood BLOOD SPECIMEN / Unknown Lab Venipuncture / Unknown 04/01/2024 3:12 PM [employer]OL B[employer]BALL COACH 04/01/2024 5:30 PM [employer]OL B[employer]BALL COACH Cindy Garcia MD LAB - CHEMISTRY ORDNatalie MONREAL [facility] [address] [place] [address], [facility] [phone] * MAGNESIUM BLOOD (04/01/2024 3:12 PM MIDD[employer] S[employer]OL BASEBALL COACH) Only the most recent of4 resultswithin the time period is included. Magnesium 2.1 1.6 - 2.6 mg/dL 04/01/2024 4:25 PM MIDD[employer] SCHOOL BASEBALL COACH [facility] Comment:Hemolysis detected i n this specimen. Hemolysis is known to cause elevations in this analyte. Caution should be exercised in the interpretation of this result. Recommend repeat testing if clinically indicated. Blood BLOOD SPECIMEN / Unknown Lab Venipuncture / Unknown 04/01/2024 3:12 PM MIDDLE SCHOOL BASEBALL COACH 04/01/2024 3:36 PM [employer] S[employer]OL BASEBALL COACH Cindy Garcia MD LAB - CHEMISTRY CHELI MONREAL Performing Organization Address City/[facility]/ZIP Co de Phone Number [facility] [address] [place] [address], [place] [phone] * LAB RESULTS ORDER (03/25/2024) 03/25/2024 Narrative 03/25/2024 Ordered by an unspecified provider. Scanned Document LAB - THERAPEUTIC DR VANCE MONITORING ORDERABLES * PTT [facility] (03/23/2024 12:25 AM MIDD[employer] S[employer]OL B[employer]BALL COACH) Only the most recent of2 resultswithin the time period is included. APTT 35.4 23.0 - 38.4 Seconds 03/23/2024 1:31 AM MIDDLE SCHOOL BASEBALL COACH [facility] Comment:Suggested therapeuti c range for full dose I.V. unfractionated heparin therapy for venous thromboembolism is 71 to 109 seconds. Blood BLOOD SPECIMEN / Unknown Venipuncture / Unknown 03/23/2024 12:25 AM [employer] S[employer]OL B[employer]BALL COACH 03/23/2024 1:05 AM [employer] S[employer]OL B[employer]BALL COACH Ghanshyam Dewey PA-C LAB - COAGULATION OR DERABLES Performing Organization Address City/[facility]/ZIP Co de Phone Number [facility] [address] [place] [address], [place] [phone] from Last 3 Months Advance Directives * Full Code (Latest Code Status on File) Date Activated Date Inactivated Comments 03/13/2024 9:41 PM 03/23/2024 2:56 PM Care Teams Working Manager Relationship Specialty Start Date End Date Timothy Banks MD [address] [place] [address] PCP - General 10/19/18 Cindy Garcia MD [address] [place] [address] Spa Coordinator/Oncologis t Hematology and Oncology 03/24/24
--- OUTSIDE RECORDS SUMMARY | 2024-06-20 13:25 | XMS_ITS | Clinical Summary ---
Author Organization [facility] Meka Hayes Address [address] [place] [address] Care Team Providers Care Construction Sales Representative Name Role Phone Timothy Banks MD Primary Care Provider [phone] Allergies Active Allergy Reactions Criticality Noted Date [...] Date Type Department Care Team Description 06/18/2024 Orders Only [facility] Oncology and Hematology - [place] [address] [place] [address] Frank Singh MD 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) 06/17/2024 Orders Only [facility] Oncology and Hematology - [place] [address] [place] [address] Frank Singh MD 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) 06/15/2024 External Device Data STL ABSTRACTION Provider, Abstract 06/14/2024 External Device Data STL ABSTRACTION Provider, Abstract 06/11/2024 Orders Only [facility] Oncology and Hematology - [place] [address] [place] [address] Frank Singh MD 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) 06/10/2024 Orders Only [facility] Oncology and Hematology - [place] [address] [place] [address] Frank Singh MD 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) 06/04/2024 Orders Only [facility] Oncology and Hematology - [place] [address] [place] [address] Frank Singh MD 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) 06/03/2024 Abstract [facility] Oncology and Hematology - [place] [address] [place] [address] Frank Singh MD 06/03/2024 Orders Only [facility] Oncology and Hematology - [place] [address] [place] [address] Frank Singh MD 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) 05/28/2024 External Device Data STL ABSTRACTION Provider, Abstract 05/28/2024 Orders Only [facility] Oncology and Hematology - [place] [address] [place] [address] Frank Singh MD 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) 05/27/2024 Abstract [facility] Oncology and Hematology - [place] [address] [place] [address] Frank Singh MD 05/27/2024 Orders Only [facility] Oncology and Hematology - [place] [address] [place] [address] Frank Singh MD 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) 05/21/2024 Orders Only [facility] Oncology and Hematology - [place] [address] [place] [address] Frank Singh MD 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) 05/20/2024 Orders Only [facility] Oncology and Hematology [facility] [address] [place] [address] Frank Singh MD 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) 05/14/2024 Orders Only [facility] Oncology and Hematology [facility] [address] [place] [address] Frank Singh MD 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) 05/13/2024 Orders Only [facility] Oncology [facility] Hematology [facility] [address] [place] [address] Frank Singh MD 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) 05/07/2024 Orders Only [facility] Oncology and Hematology [facility] [address] Frank Singh MD 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) 05/06/2024 Orders Only [facility] Oncology and Hematology [facility] [address] [place] [address] Frank Singh MD 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) 05/03/2024 Abstract [facility] Oncology and Hematology [facility] [address] [place] [address] Frank Singh MD 05/02/2024 External Device Data STL ABSTRACTION Provider, Abstract 05/01/2024 External Device Data STL ABSTRACTION Provider, Abstract 04/30/2024 External Device Data STL ABSTRACTION Provider, Abstract 04/30/2024 Orders Only [facility] Oncology and Hematology [facility] [address] [place] [address] Frank Singh MD 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) 04/29/2024 Orders Only [facility] Oncology and Hematology - [place] [address] [place] [address] Frank Singh MD 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) 04/25/2024 Orders Only [facility] Oncology and Hematology - [place] [address] [place] [address] Frank Singh MD 04/23/2024 External Device Data STL ABSTRACTION Provider, Abstract 04/23/2024 Orders Only [facility] Oncology and Hematology - [place] [address] [place] [phone] Frank Singh MD 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) 04/22/2024 Orders Only [facility] Oncology and Hematology - [place] [address] Frank Singh MD 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) 04/17/2024 Orders Only [facility] Oncology and Hematology - [place] [address] [place] [phone] Frnak Singh MD 04/16/2024 Orders Only [facility] Oncology and Hematology - [place] [address] Frank Singh MD 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) 04/15/2024 Orders Only [facility] Oncology and Hematology - [place] [address] Frank Singh MD 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) 04/09/2024 Orders Only [facility] Oncology and Hematology - [place] [address] Frank Singh MD 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) 04/08/2024 Orders Only [facility] Oncology and Hematology - [place] [address] Frank Singh MD 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) 04/05/2024 Orders Only [facility] Oncology and Hematology - [place] [address] [place] [address] Frank Singh MD 04/02/2024 Orders Only [facility] Oncology and Hematology - [place] [address] [place] [address] Frank Singh MD 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) 04/01/2024 Orders Only [facility] Oncology and Hematology - [place] [address] [place] [address] Frank Singh MD 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) 03/28/2024 Orders Only [facility] Oncology and Hematology - [place] [address] [place] [address] Frank Singh MD 03/28/2024 Nurse Triage [facility] Oncology and Hematology - [place] [address] Frank Singh MD 03/26/2024 Orders Only [facility] Oncology and Hematology - [place] [address] Frank Singh MD 03/25/2024 Telephone [facility] Oncology and Hematology - [place] [address] Frank Singh MD Lab Results 03/25/2024 Orders Only [facility] Oncology and Hematology - [place] [address] [place] [address] Frank Singh MD 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) 03/22/2024 Telephone [facility] Oncology and Hematology [place] [address] [place] [address] Frank Singh MD Chemotherapy 03/22/2024 Telephone [facility] Oncology and Hematology [place] [address] [place] [address] Frank Singh MD error from Last 3 [...] Sex Assigned at Male 04/05/2024 3:07 PM SECURITY SPECIALIST Legal Sex Male 10:53 AM CDT Gender Identity Male 04/05/2024 3:07 PM SECURITY SPECIALIST Sexual Orientation Not on file Last [...] 2023-2 5 season) 2023 04/14/2021 [place] Preventative Visit/Annual Wellness Visit 04/10/2024 DTAP/TDAP/TD VACCINES (2 - T d or Tdap) 09/17/2028 09/17/2018 PNEUMOCOCCAL VACCINE 50+ YEARS Completed 09/17/2018 , 08/27/2015 Procedures Procedure Name Priority Date/Time Associated Diagnosis Comments BASIC METABOLIC PANEL Routine 06/10/2024 2:39 PM SECURITY SPECIALIST CBC WITH DIFFERENTIAL Routine 06/03/2024 4:15 PM SECURITY SPECIALIST CBC WITH DIFFERENTIAL Routine 05/27/2024 12:08 PM SECURITY SPECIALIST BASIC METABOLIC PANEL Routine 05/06/2024 12:55 PM SECURITY SPECIALIST BASIC METABOLIC PANEL Routine 05/02/2024 1:34 PM SECURITY SPECIALIST BASIC METABOLIC PANEL Routine 04/29/2024 4:14 PM SECURITY SPECIALIST BASIC METABOLIC PANEL Routine 04/25/2024 4:21 PM SECURITY SPECIALIST BASIC METABOLIC PANEL Routine 04/08/2024 1:56 PM SECURITY SPECIALIST BASIC METABOLIC PANEL Routine 04/04/2024 3:39 PM SECURITY SPECIALIST CBC WITH DIFFERENTIAL Routine 04/04/2024 1:55 PM SECURITY SPECIALIST BASIC METABOLIC PANEL Routine 04/01/2024 10:11 AM SECURITY SPECIALIST CBC MIXED CELL DIFFERENTIAL Routine 04/01/2024 9:00 AM SECURITY SPECIALIST BASIC METABOLIC PANEL Routine 03/28/2024 1:31 PM SECURITY SPECIALIST CBC WITH DIFFERENTIAL Routine 03/28/2024 1:23 PM SECURITY SPECIALIST BASIC METABOLIC PANEL Routine 03/25/2024 1:24 PM SECURITY SPECIALIST CBC WITH DIFFERENTIAL Routine 03/25/2024 1:23 PM SECURITY SPECIALIST CBC WITH DIFFERENTIAL Routine 03/25/2024 10:28 AM SECURITY SPECIALIST from Last 3 Months Results * BASIC METABOLIC PANEL (06/10/2024 2:39 PM SECURITY SPECIALIST) Only the most recent of10 resultswithin the time period is included. Blood us Frank Singh MD CHEMISTRY ORDERABLES Final Resu lt * CBC WITH DIFFERENTIAL (06/03/2024 4:15 PM SECURITY SPECIALIST) Only the most recent of6 resultswithin the time period is included. Blood us Frank Singh MD HEMATOLOGY ORDERABLES Final Res ult * CBC MIXED CELL DIFFERENTIAL (04/01/2024 9:00 AM SECURITY SPECIALIST) Blood Frank Singh MD HEMATOLOGY ORDERABLES Final Res ult from Last 3 Months Insurance [facility] [id number] [facility] MCR Care Teams Construction Sales Representative Relationship Specialty Start Date End Date Timothy Banks MD [address] [place] [address] PCP - General Family Practice 02/01/24
--- OUTSIDE RECORDS SUMMARY | 2024-06-20 13:25 | XMS_ITS | Encounter Summary ---
Author Organization [facility] Address [address] [facility] [place] [address] Care Team Providers Care Electron Gun Inspector Name Role Phone Timothy Banks MD Primary Care Provider [phone] Cindy Garcia MD Unavailable Encounter Details Date Type Department Care Team (Late st Contact Info) Description 09/28/2023 Lab Requisition [facility] - DermPath Lab [address] [place] [address] Timothy Banks MD [address] [place] [address] Social History Tobacco Use Types Packs/Day Years Used Date Smoking Tobacco: Never Assessed Sex and Gender Information Value Date Recorded Sex Assigned at Male 03/05/2024 8:04 AM VENTURE CAPITALIST Gender Identity Male 03/05/2024 8:04 AM VENTURE CAPITALIST Sexual Orientation Straight 03/05/2024 8: 04 AM VENTURE CAPITALIST documented as of this encounter Plan of Treatment Upcoming Encounters Date Type Department Care Team (Late st Contact Info) Description 06/24/2024 9:00 AM CDT Hospital Encounter [facility] [address] [place] [address] 06/24/2024 9:40 AM CDT Office Visit [facility] - Hematology/Oncology [address] [place] [phone] Stephanie Connolly APRN-FAISAL [address] [place] [address] 06/25/2024 10:00 AM CDT Hospital Encounter [facility] [address] [place] [address] 06/26/2024 8:30 AM CDT Hospital Encounter [facility] [address] [place] [address] 06/27/2024 9:30 AM CDT Appointment [facility] [address] [place] [address] 06/28/2024 9:30 AM CDT Appointment [facility] [address] [place] [address] 07/22/2024 9:20 AM CDT Appointment [facility] [address] [place] [phone] Timothy Banks MD [address] [place] [address] 07/22/2024 10:00 AM CDT Office Visit [facility] - Hematology/Oncology [address] [place] [phone] Cindy Garcia MD [address] [place] [address] documented as of this encounter Procedures Procedure Name Priority Date/Time Associated Diagnosis Comments DERMATOPATHOLOGY Routine 09/27/2023 12:0 0 AM CDT documented in this encounter Results * DERMATOPATHOLOGY (09/27/2023 12:00 AM CDT) Case Report Dermatopathology Report Case: [id number] Authorizing Provider: Timothy Banks MD Collected: 09/27/2023 12:00 AM Ordering Location: [facility] Physician [facility] - Received: 09/28/2023 10:46 AM DermPath Lab Pathologist: Kerry Pringle MD Specimens: A) - Skin, left neck B) - Skin, left axilla 4 12:35 PM T DERMATOPATHOLOGY LABORATORY Final Diagnosis Specimen A. SKIN, left neck: SEBORRHEIC KERATOSIS, IRRITATED AND INFLAMED (L82.0) PRESENT AT MARGIN Specimen B. SKIN, left axilla: PIGMENTED SEBORRHEIC KERATOSIS (L82.1) PRESENT AT MARGIN 4 12:35 PM [facility] DERMATOPATHOLOGY LABORATORY Clinical History A-B: Changing lesion 4 12:35 PM T DERMATOPATHOLOGY LABORATORY Gross Description Specimen A: Received is one formalin filled container labeled with the patient's name and designated left neck. The specimen consists of a shave biopsy measuring [id number] mm. Jar 0. Specimen B: Received is [...] cassette 2. Jar 0. 4 12:35 PM [facility] DERMATOPATHOLOGY LABORATORY Microscopic Description Specimen A. [...] margin of the specimen. 4 12:35 PM [facility] DERMATOPATHOLOGY LABORATORY Disclaimer An external and internal positive and negative controls are appropriate for the histochemical, immunohistochemical and immunofluorescence stain(s) in this case (if any), except where stated explicitly. The performance characteristics of the stain(s) cited in this report were developed and its performance characteristic determined by the Dermatopathology Laboratory at [facility], directed by Dr. Randall Pringle. These tests need not be, and therefore are not, approved by the [place] Food and Drug Administration. The tests are used for clinical purposes. Billing Codes Specimen Charges Stain Charges 35694 [id number] 1 1 4 12:35 PM CDT DERMATOPATHOLOGY LABORATORY Embedded Images 4 12:35 PM CDT DERMATOPATHOLOGY LABORATORY Pathology/Cytology TISSUE SPECIMEN FROM SKIN / Unknown 09/27/2023 09/28/2023 10:46 AM CDT Miscellaneous samples (specimen) TISSUE SPECIMEN FROM SKIN / Unknown 09/27/2023 09/28/2023 10:46 AM CDT Timothy Banks MD LAB - PATHOLOGY/CYTO LOGY ORDERABLES DERMATOPATHOLOGY LABORATORY [facility] - Department of Dermatology [address] [phone] documented in this encounter Visit Diagnoses Not on filedocumented in this encounter Care Teams Electron Gun Inspector Relationship Specialty Start Date End Date Timothy Banks MD [address] [place] [address] PCP - General 10/19/18 Cindy Garcia MD [address] [place] [address] Bench Assembler/Oncologis t Hematology and Oncology 03/24/24 documented as of this encounter
--- OUTSIDE RECORDS SUMMARY | 2024-06-20 13:25 | XMS_ITS | Clinical Summary ---
Author Organization [facility] Address [address] [place] [address] Phone Care Team Providers Care Picking Table Worker Name Role Phone Timothy Banks MD Primary Care Provider [phone] Allergies No known active allergies Medications Medication [...] Medium Risk Completed 09/17/2018, 08/27/2015 Care Teams Picking Table Worker Relationship Specialty Start Date End Date Timothy Banks MD [address] [place] [phone] PCP - General Family Medicine 11/14/18
--- OUTSIDE RECORDS SUMMARY | 2024-06-20 13:25 | XMS_ITS | Patient Health Summary ---
Author Organization [facility] Address [address] [place] [address] Care Team Providers Care Personnel Research Scientist Name Role Phone Timothy Banks MD Primary Care Provider [phone] Cindy Garcia MD Unavailable Note from [facility],non-owned Affiliates and Associated Physician Practices is amultiple site organization consisting of ambulatory clinics and hospital sitesin [place], [place], [place] and [place]. This disclosure is being madepursuant to the Care Everywhere program and may not contain all information available regarding this patient. Last updated 17.[facility] Allergies * Contrast-Gadolinium Agents For Mri(Urticaria) -Medium [...] 2 times daily 5 refills by 05/16/2025 Active Problems Problem Noted Date Diagnosed Date [...] and heating? Not hard at all 03/13/2024 [facility]at [facility] - Occupational Stress Questionnaire Answer Date [...] any time in the past 12 m [facility], were you homeless or living in a assisted (including now)? No 03/13/2024 Sex and Gender Information Value Date Recorded Sex Assigned at Male 03/05/2024 8:04 AM STOKER ERECTOR AND SERVICER Gender Identity Male 03/05/2024 8:04 AM STOKER ERECTOR AND SERVICER Sexual Orientation Straight 03/05/2024 8: 04 AM STOKER ERECTOR AND SERVICER Last Filed Vital Signs Vital Sign Reading [...] Height 182.9 cm (6') 05/15/2024 12:50 PM STOKER ERECTOR AND SERVICER Body Mass Index 28.48 05/15/2024 12:50 PM STOKER ERECTOR AND SERVICER Medical Devices Implanted Type Area Fuel House Attendant Device Identifier Shelf Expiration Date Model / Serial / Lot Port Implinfn Powerport Clrvu Argd Kandy Implanted:Qty : 1 on 04/11/2024 by Davian Marshall MD at [facility] Catheters Right: Chest Wall [employer] [id number] 02/07/2025 [id number] / / [id number] Procedures * DIFFERENTIAL MANUAL(Performed 06/17/2024) 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, 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) * COMPREHENSIVE METABOLIC PANEL(Performed 06/17/2024) 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, 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) * CBC W AUTO DIFFERENTIAL(Performed 06/17/2024) 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, 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) * COMPREHENSIVE METABOLIC PANEL(Performed 05/30/2024) Performed for [...] CONTRAST(Performed 03/15/2024) Performed for MDS (myelodysplastic syndrome) ([facility]) * MYELOID MALIGNANCIES MUTATION PNL(Performed 03/15/2024) Performed for MDS (myelodysplastic syndrome) ([facility]) * FISH MDS PANEL BLOOD OR BONE MARROW(Performed 03/15/2024) Performed for MDS (myelodysplastic syndrome) ([facility]) * FISH AML PANEL BLOOD OR BM RFLX PML/DANTE(Performed 03/15/2024) Performed for MDS (myelodysplastic syndrome) ([facility]) * FLOW CYTOMETRY BONE MARROW(Performed 03/15/2024) Performed for MDS (myelodysplastic syndrome) ([facility]) * BONE MARROW BIOPSY (STL)(Performed 03/15/2024) Performed for MDS (myelodysplastic syndrome) ([facility]) * FISH PML/DANTE PANEL(Performed 03/15/2024) Performed for MDS (myelodysplastic syndrome) ([facility]) * CHROMOSOME ANALYSIS BONE MARROW PANEL(Performed 03/15/2024) Performed for MDS (myelodysplastic syndrome) ([facility]) * LAB MISC TEST (NOT BLOOD)(Performed [...] 12-LEAD(Performed 03/14/2024) Performed for MDS (myelodysplastic syndrome) ([facility]) * FLOW CYTOMETRY BLOOD PROFILE(Performed 03/14/2024) Performed for MDS (myelodysplastic syndrome) ([facility]) * DIFFERENTIAL MANUAL(Performed 03/13/2024) * LDH [...] BLD(Performed 03/04/2024) Performed for MDS (myelodysplastic syndrome) ([facility]) * FISH PML/DANTE PANEL(Performed 03/04/2024) Performed for MDS (myelodysplastic syndrome) ([facility]) * FISH AML PANEL BLOOD OR BM RFLX PML/DANTE(Performed 03/04/2024) Performed for MDS (myelodysplastic syndrome) ([facility]) * FISH AML+MDS PANEL BLOOD OR BONE MARROW(Performed 03/04/2024) Performed for MDS (myelodysplastic syndrome) ([facility]) * MYELOID MALIGNANCIES MUTATION PNL(Performed 03/04/2024) Performed for MDS (myelodysplastic syndrome) ([facility]) * HLA TYPING LOW/HIGH RESOLUTION DPB1(Performed 03/04/2024) Performed for MDS (myelodysplastic syndrome) ([facility]) * HLA TYPING DNA HIGH RESOLUTION DR(Performed 03/04/2024) Performed for MDS (myelodysplastic syndrome) ([facility]) * HLA TYPING DNA HIGH RESOLUTION B(Performed 03/04/2024) Performed for MDS (myelodysplastic syndrome) ([facility]) * HLA TYPING DNA HIGH RESOLUTION C(Performed 03/04/2024) Performed for MDS (myelodysplastic syndrome) ([facility]) * HLA TYPING DNA HIGH RESOLUTION DQ(Performed 03/04/2024) Performed for MDS (myelodysplastic syndrome) ([facility]) * HLA TYPING DNA HIGH RESOLUTION [...] DERMATOPATHOLOGY(Performed 09/24/2013) Results * (ABNORMAL) DIFFERENTIAL MANUAL (06/17/2024 9:36 AM T) Only the most recent of16 resultswithin the time period is included. Neutrophil % 16(L) 41 - 74 % 06/17/2024 10:48 AM [facility] Lymphocyte % 44 17 - 47 % 06/17/2024 10:48 AM [facility] Monocyte % 38(H) 3 - 11 % 06/17/2024 10:48 AM [facility] Eosinophil % 2 0 - 7 % 06/17/2024 10:48 AM [facility] Neutrophil Absolute 0.13(L) 1.60 - 7.50 x10E9/L 06/17/2024 10:48 AM [facility] Lymphocyte Absolute 0.35(L) 1.00 - 4.40 x10E9/L 06/17/2024 10:48 AM [facility] Monocyte Absolute 0.30 0.15 - 1.00 x10E9/L 06/17/2024 10:48 AM [facility] Eosinophil Absolute 0.02 0.00 - 0.60 x10E9/L 06/17/2024 10:48 AM [facility] RBC Morphology REVIEWED 06/17/2024 10:48 AM [facility] Microcytosis MODERATE(A) (none) 06/17/2024 10:48 AM [facility] Schistocytes MODERATE(A) (none) 06/17/2024 10:48 AM [facility] Large Platelets PRESENT(A) (none) 10:48 AM [facility] Blood BLOOD SPECIMEN / Unknown Venipuncture / Unknown 06/17/2024 9:36 AM CDT 06/17/2024 9:47 AM CDT Cindy Garcia MD LAB - HEMATOLOGY ORD ERABLES [facility] [address] [place] [address], [facility] [phone] * (ABNORMAL) CBC WITH DIFFERENTIAL (06/17/2024 9:36 AM CDT) Only the most recent of21 resultswithin the time period is included. WBC 0.8(LL) 4.0 - 10.7 x10E9/L 06/17/2024 10:52 AM [facility] RBC Count 3.78(L) 4.30 - 5.80 x10E12/L 06/17/2024 10:52 AM [facility] Hemoglobin 11.2(L) 13.3 - 17.5 g/dL 06/17/2024 10:52 AM [facility] Hematocrit 33.9(L) 38.7 - 51.1 % 06/17/2024 10:52 AM [facility] MCV 89.7 80.0 - 98.0 fL 06/17/2024 10:52 AM [facility] MCH 29.6 26.7 - 33.6 pg 06/17/2024 10:52 AM [facility] MCHC 33.0 31.7 - 36.3 g/dL 06/17/2024 10:52 AM [facility] RDW-CV 20.0(H) 11.3 - 14.8 % 06/17/2024 10:52 AM [facility] Platelet Count 164 150 - 420 x10E9/L 06/17/2024 10:52 AM [facility] Preliminary Absolute Neutrophil 0.11(L) 1.60 - 7.50 x10E9/L 06/17/2024 10:52 AM [facility] Blood BLOOD SPECIMEN / Unknown Venipuncture / Unknown 06/17/2024 9:36 AM CDT 06/17/2024 9:47 AM CDT Cindy Garcia MD LAB - HEMATOLOGY ORD ERABLES [facility] [address] [place] [address], [facility] [phone] * (ABNORMAL) COMPREHENSIVE METABOLIC PANEL (06/17/2024 9:36 AM CDT) Only the most recent of22 resultswithin the time period is included. BUN 14 7 - 26 mg/dL 06/17/2024 10:44 AM [facility] Creatinine 1.20(H) 0.71 - 1.16 mg/dL 06/17/2024 10:44 AM [facility] Sodium 143 136 - 145 mmol/L 06/17/2024 10:44 AM [facility] Potassium 3.5 3.5 - 4.5 mmol/L 06/17/2024 10:44 AM [facility] Chloride 110(H) 98 - 107 mmol/L 06/17/2024 10:44 AM [facility] CO2 24 22 - 29 mmol/L 06/17/2024 10:44 AM [facility] Glucose 78 70 - 99 mg/dL 06/17/2024 10:44 AM [facility] Calcium 9.1 8.4 - 10.2 mg/dL 06/17/2024 10:44 AM [facility] Protein Total 6.1 6.0 - 8.3 g/dL 06/17/2024 10:44 AM [facility] Albumin 3.6 3.4 - 5.0 g/dL 06/17/2024 10:44 AM [facility] Bilirubin Total 1.0 0.2 - 1.2 mg/dL 06/17/2024 10:44 AM [facility] Alkaline Phosphatase 123 40 - 150 U/L 06/17/2024 10:44 AM [facility] ALT 11 5 - 55 U/L 06/17/2024 10:44 AM [facility] AST 14 5 - 34 U/L 06/17/2024 10:44 AM [facility] Anion Gap 9 6 - 16 06/17/2024 10:44 AM [facility] BUN/Creatinine Ratio 12 7 - 23 06/17/2024 10:44 AM [facility] Osmolality Calculated 295 275 - 295 mOsm/kg 06/17/2024 10:44 AM [facility] Albumin/Globulin Ratio 1.4 1.1 - 2.3 06/17/2024 10:44 AM [facility] eGFR by CKD-EPI 62(L) >=90 mL/min/1.7 3 m2 06/17/2024 10:44 AM [facility] Blood BLOOD SPECIMEN / Unknown Venipuncture / Unknown 06/17/2024 9:36 AM CDT 06/17/2024 9:47 AM [facility] Cindy Garcia MD LAB - CHEMISTRY CHELI [facility] Organization Address City/State/ZIP Co de Phone Number [address] [address], [facility] [phone] * FLOW CYTOMETRY BONE MARROW (05/15/2024 1:35 PM STOKER ERECTOR AND SERVICER) Only the most recent of3 resultswithin the time period is included. Case Report Flow Cytometry Case: [id number] Authorizing Provider: Chapis Prabhakar APRN-CNP Collected: 05/15/2024 01:35 PM Ordering Location: [facility] Received: 05/15/2024 03:04 PM Pathologist: Guillermo Brown MD Specimen: Bone Marrow 05/22/2024 8:46 AM STOKER ERECTOR AND SERVICER [facility] Addendum 1 This addendum is issued to report the results of minimal residual disease (MRD) flow cytometric analysis performed by the [facility], [address] [place] [address], [place] [address]. B one marrow aspirate - No abnormal [...] specimen has been reviewed for quality control lab technician purposes. 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 A-2 Flow CD10 A-3 Flow CD13 A-5 Flow CD20 A-11 Flow CD2 A-13 Flow CD14 A-16 Flow CD117 A-17 Flow CD11b A-18 Flow CD11c A-1 Flow CD5 A-4 Flow CD19 A-6 Flow CD33 A-7 Flow CD34 A-8 Flow CD45 A-12 Flow CD7 A-14 Flow CD56 A-15 Flow CD64 A-9 [place]+CD19+ A-10 Lambda+CD19+ A-19 Flow HLA-DR 05/22/2024 8:46 AM [facility] Pathologist Location at [facility] 05/22/2024 8:46 AM [facility] Disclaimer Test performed at [facility], [address], [place], [address]. *The established laboratory minimum viability is 70%. [...] Unknown Collection / Unknown 05/15/2024 1:35 PM STOKER ERECTOR AND SERVICER 05/15/2024 3:04 PM STOKER ERECTOR AND SERVICER Chapis JOLLEY LAB - PATHOLOGY/CY TOLOGY ORDERABLES [facility] [address] [place] [address] [address], [facility] [phone] * BONE MARROW BIOPSY (STL) (05/15/2024 1:35 PM STOKER ERECTOR AND SERVICER) Only the most recent of3 resultswithin the time period is included. Case Report Bone Marrow Patholog y Report Case: [id number] Authorizing Provider: Chapis Prabhakar APRN-CNP Collected: 05/15/2024 01:35 PM Ordering Location: [facility] Received: 05/15/2024 03:04 PM Pathologist: [...] Flow Cytometry Summary Bone marrow, flow cytometry ([id number]): - No significant B-cell, increased blast, or [...] MEDICAL C[facility] PATHOLOG[facility] LAB Pathologist Location at [facility] 05/16/2024 3:02 PM [facility] Disclaimer The performance characteristics of all immunohistochemical and indirect immunofluorescence stains (if any) cited in this report were determined by the Histopathology Laboratory of [facility]. Some of these tests were [...] Unknown Collection / Unknown 05/15/2024 1:35 PM STOKER ERECTOR AND SERVICER 05/15/2024 3:04 PM STOKER ERECTOR AND SERVICER Miscellaneous samples (specimen) BONE MARROW SPECIMEN / Unknown 05/15/2024 1:35 PM STOKER ERECTOR AND SERVICER 05/15/2024 3:04 PM STOKER ERECTOR AND SERVICER Miscellaneous samples (specimen) SPECIMEN FROM BONE MARROW OBTAINED BY [facility] / Unknown 05/15/2024 1:35 PM STOKER ERECTOR AND SERVICER 05/15/2024 3:04 PM STOKER ERECTOR AND SERVICER Miscellaneous samples (specimen) PERIPHERAL BLOOD / Unknown 05/15/2024 1:35 PM STOKER ERECTOR AND SERVICER 05/15/2024 3:49 PM STOKER ERECTOR AND SERVICER Chapis JOLLEY LAB - PATHOLOGY/CY TOLOGY ORDERABLES Performing Organization Address [facility]/ZIP Co de Phone Number [facility] [address] [place] [address], [facility] [phone] * LAB MISC TEST (NOT BLOOD) (05/15/2024 1:35 PM STOKER ERECTOR AND SERVICER) Only the most recent of5 resultswithin the time period is included. [facility] Test Name AML Panel FISH and Molecular. Additional probes +8 (CEP8) and del(20)(q12) ([id number] 06/18/2024 5:28 AM CDT [facility] NON INTERF Comment:This is an appended report. These results have been appended to a previously final verified report. Test Result See Scanned Report 06/18/2024 5:28 AM CDT [facility] NON INTERF Comment Ref Lab [facility] 06/18/2024 5:28 AM CDT [facility] NON INTERF Comment:This is an appended report. These results have been appended to a previously final verified report. Other BONE MARROW SPECIMEN / Unknown Collection / Unknown 05/15/2024 1:35 PM STOKER ERECTOR AND SERVICER 05/15/2024 4:01 PM STOKER ERECTOR AND SERVICER Narrative [facility] NON INTERF - 06/18/2024 5:28 AM CDT Waiting for IDH 1/2 (received 06/17/24) Chapis JOLLEY LAB - BODY FLUID O RDERABLES Performing Organization Address City/[facility]/ZIP Co de Phone Number [facility] NON INTERF [address] [place] [address], [facility] [phone] * CHROMOSOME ANALYSIS BONE MARROW PANEL (05/15/2024 1:35 PM STOKER ERECTOR AND SERVICER) Only the most recent of2 resultswithin the time period is included. [facility] Chromosome Analysis Bone Marrow See Note Normal 05/22/2024 1:12 PM STOKER ERECTOR AND SERVICER [facility] ([facility]) Comment: Test Performed: Chromosome Analysis Specimen Type: [...] analysis was performed at the following location(s): [facility] CG-KS#2 [facility] CG-IN#1 INTERPRETIVE INFORMATION: Chromosome Analysis, Bone Marrow This test was developed and its performance characteristics determined by [facility]. It has not been cleared or approved by the US Food and Drug Administration. This test was performed in a CLIA certified laboratory and is intended for clinical purposes. [facility] Chromosome Analysis Bone Marrow See Note 05/22/2024 1:12 PM STOKER ERECTOR AND SERVICER [facility] ([facility]) Comment: Authorized individuals can access the [facility] Enhanced Report with an [facility] Connect account using the following link. Your local lab can assist you in obtaining the patient report if you don't have a Connect account. [email or web address] Performed By: [facility] [address] [place] [id number] Application Technical Designer: Uche Morley MD, PhD CLIA Number: [id number] Bone marrow BONE MARROW SPECIMEN / Unknown 05/15/2024 1:35 PM STOKER ERECTOR AND SERVICER 05/15/2024 3:04 PM STOKER ERECTOR AND SERVICER Chapis Prabhakar SHOW CARD WRITER-RETAINING ROOM CUTTER LAB - PATHOLOGY/CY TOLOGY ORDERABLES Performing Organization Address City/[facility]/ZIP Co de Phone Number [facility]) [address] * EKG 12-LEAD - HOSPITAL PERFORMED (04/22/2024 1:27 PM STOKER ERECTOR AND SERVICER) Only the most recent of3 resultswithin the time period is included. Pathologist [facility] Ventricular Rate 61 BPM [facility] Atrial Rate 61 BPM [facility] P-R Interval 112 ms [facility] QRS Duration ms 126 ms [facility] Q-T Interval ms 476 ms [facility] QTC Calculation (Bezet) 479 ms [facility] Calculated P [place] 84 degrees [facility] Calculated R [place] 36 degrees [facility] Calculated T [place] -163 degrees [facility] Interpretation EKG NORMAL SINUS RHYTHM NON-SPECIFIC INTRA-VENTRICULA R CONDUCTION BLOCK T WAVE ABNORMALITY, CONSIDER INFERIOR ISCHEMIA T WAVE ABNORMALITY, CONSIDER ANTEROLATERAL ISCHEMIA ABNORMAL ECG WHEN COMPARED WITH ECG OF 18-MAR-2024 13:48, NO SIGNIFICANT CHANGE WAS FOUND Confirmed by HANSEL VASQUES MD ([id number]) on 04/23/2024 8:31:57 AM [facility] 04/22/2024 1:27 PM STOKER ERECTOR AND SERVICER 04/23/2024 8:31 AM STOKER ERECTOR AND SERVICER Cindy Garcia MD ECG ORDERABLES Performing Organization Address City/[facility]/ZIP Co de Phone Number [facility] * QUANTIFERON-TB GOLD PLUS 4-TUBE (04/16/2024 1:43 PM STOKER ERECTOR AND SERVICER) Pathologist [facility] QuantiFERON Mitogen Minus NIL 9.09 IU/mL 04/18/2024 11:11 PM STOKER ERECTOR AND SERVICER [facility] ([facility]) QuantiFERON Nil Value 0.04 IU/mL 04/18/2024 11:11 PM STOKER ERECTOR AND SERVICER [facility] ([facility]) QuantiFERON Plus TB1 Minus NIL 0.00 <=0.34 IU/mL 04/18/2024 11:11 PM STOKER ERECTOR AND SERVICER [facility] ([facility]) QuantiFERON Plus TB2 Minus NIL 0.00 <=0.34 IU/mL 04/18/2024 11:11 PM STOKER ERECTOR AND SERVICER [facility] ([facility]) QuantiFERON-TB Gold Plus Negative Negative 04/18/2024 11:11 PM STOKER ERECTOR AND SERVICER [facility]) Comment: INTERPRETIVE INFORMATION:Quantiferon TB Gold Plus [...] Mycobacterium tuberculosis Infection -- [place], 2010 (http://www.cdc.gov/mmwr/preview/mmwrhtml/bd9265f8.htm), for more information concerning test performance in low-prevalence populations and use in occupational screening. Performed By: [facility] [address] [place] [address] Application Technical Designer: Uche Morley MD, PhD CLIA Number: [id number] Blood BLOOD SPECIMEN / Unknown Venipuncture / Unknown 04/16/2024 1:43 PM STOKER ERECTOR AND SERVICER 04/16/2024 2:03 PM STOKER ERECTOR AND SERVICER Cindy Garcia MD LAB - CHEMISTRY CHELI MONREAL [facility]) [address], [place] [address] * LDH BLOOD (04/16/2024 10:26 AM STOKER ERECTOR AND SERVICER) Only the most recent of13 resultswithin the time period is included. LDH Total 197 125 - 243 Units/L 04/16/2024 11:14 AM STOKER ERECTOR AND SERVICER [facility] Blood BLOOD SPECIMEN / Unknown Venipuncture / Unknown 04/16/2024 10:26 AM STOKER ERECTOR AND SERVICER 04/16/2024 10:48 AM STOKER ERECTOR AND SERVICER Cindy Garcia MD LAB - CHEMISTRY CHELI MONREAL [address] [address], [facility] [phone] * IR Tim Cath Insert (04/11/2024 9:45 AM STOKER ERECTOR AND SERVICER) Anatomical Region Laterality Modality Chest X-Ray Angiograph y 04/11/2024 9:19 AM STOKER ERECTOR AND SERVICER Impressions 04/11/2024 3:43 PM STOKER ERECTOR AND SERVICER Impression: Successful placement of a single lumen 8 Ghanaian x 23 cm chest power port via [...] evaluation, please review the evaluation forms in [facility]. For details on monitored clinical parameters during the intra-service sedation time, please review the procedure nurse documentation in [facility]. Report dictated by Eduardo Coleman MD, PhD (residential sales rep). > Dictated by Eduardo Coleman MD (Knife Setter) 04/11/2024 9:19 AM IDavian DO have personally reviewed and interpreted this examination/study. > Interpreting Provider: Davian Marshall DO on 04/11/2024 3:43 PM Narrative 04/11/2024 3:43 PM STOKER ERECTOR AND SERVICER PROCEDURE: IR TIM CATH INSERT, DATE/TIME OF EXAM: 04/11/2024 5:49 AM, LOCATION [facility] INDICATION: C92.00: Acute myeloid leukemia not [...] chest. 3.Fluoroscopy-guided placement of single lumen 8 Ghanaian x 23 cm chest power port via [...] draped in the usual sterile manner. A kiln operator helper film of chest was obtained, which [...] DATE/TIME OF EXAM: 04/11/2024 5:49 AM, LOCATION [facility] INDICATION: C92.00: Acute myeloid leukemia not [...] chest. 3.Fluoroscopy-guided placement of single lumen 8 Ghanaian x 23 cm chestpower port via the [...] and draped inthe usual sterile manner. A kiln operator helper film of chest was obtained, which [...] the procedure well and [facility]. There were no immediate complicationsassociated with the procedure. Impression: Successful placement of a single lumen 8 Ghanaian x 23 cmchest power port via the [...] evaluation, please review the evaluation forms in [facility]. For details on monitored clinical parameters during the intra-service sedation time, please review the procedure nurse documentation in [facility]. Report dictated by Eduardo Coleman MD, PhD (residential sales rep). > Dictated by Eduardo Coleman MD (Knife Setter) 04/11/2024 9:19AM IDavian DO have personally reviewed and interpreted this examination/study. > Interpreting Provider: Davian Marshall DO on 04/11/2024 3:43 PM Cindy Garcia MD IR ORDERABLES * PT-INR [facility] (04/11/2024 7:20 AM STOKER ERECTOR AND SERVICER) Only the most recent of11 resultswithin the time period is included. PT 14.6 12.1 - 14.8 Seconds 04/11/2024 7:56 AM STOKER ERECTOR AND SERVICER [facility] INR 1.2 See Comment 04/11/2024 7:56 AM STOKER ERECTOR AND SERVICER [facility] Comment:The suggested therap eutic range for standard coumadin (warfarin) therapy is an INR of 2.0-3.0. For high-risk patients (Mechanical Mitral Valve Prosthesis, etc.), the suggested prophylactic therapeutic range is an INR of 2.5-3.5. Blood BLOOD SPECIMEN / Unknown Venipuncture / Unknown 04/11/2024 7:20 AM STOKER ERECTOR AND SERVICER 04/11/2024 7:23 AM STOKER ERECTOR AND SERVICER Cindy Garcia MD LAB - COAGULATION OR DERABLES [facility] [address] [place] [address], [facility] [phone] * URIC ACID BLOOD (04/01/2024 3:12 PM STOKER ERECTOR AND SERVICER) Only the most recent of13 resultswithin the time period is included. Uric Acid 4.0 3.5 - 7.2 mg/dL 04/01/2024 5:52 PM STOKER ERECTOR AND SERVICER [facility] Blood BLOOD SPECIMEN / Unknown Lab Venipuncture / Unknown 04/01/2024 3:12 PM STOKER ERECTOR AND SERVICER 04/01/2024 5:30 PM STOKER ERECTOR AND SERVICER Cindy Garcia MD LAB - CHEMISTRY CHELI MONREAL [facility] [address] [place] [address], [facility] [phone] * ERYTHROPOIETIN (04/01/2024 3:12 PM STOKER ERECTOR AND SERVICER) Erythropoietin 22 4 - 27 mU/mL 04/02/2024 11:36 AM STOKER ERECTOR AND SERVICER [facility] ([facility]) Comment: INTERPRETIVE INFORMATION: Erythropoietin Normal serum concentrations [...] benefit from therapy with recombinant EPO (NEJ [id number],1989). Performed By: [facility] [address] [place] [address] Application Technical Designer: Uche Morley MD, PhD CLIA Number: [id number] Blood BLOOD SPECIMEN / Unknown Lab Venipuncture / Unknown 04/01/2024 3:12 PM STOKER ERECTOR AND SERVICER 04/01/2024 3:22 PM STOKER ERECTOR AND SERVICER Cindy Garcia MD LAB - CHEMISTRY CHELI MONREAL [facility]) [address] * SOLUBLE TRANSFERRIN RECEPTOR (04/01/2024 3:12 PM STOKER ERECTOR AND SERVICER) [facility] Soluble Transferrin Receptor 3.3 2.2 - 5.0 mg/L 04/02/2024 9:13 PM STOKER ERECTOR AND SERVICER [facility] ([facility]) Comment: INTERPRETIVE INFORMATION: Soluble Transferrin Receptor People [...] Fe Status High Normal High Performed By: [facility] [address] [place] [address] Application Technical Designer: Uche Morley MD, PhD CLIA Number: [id number] Blood BLOOD SPECIMEN / Unknown Lab Venipuncture / Unknown 04/01/2024 3:12 PM STOKER ERECTOR AND SERVICER 04/01/2024 3:22 PM STOKER ERECTOR AND SERVICER Cindy Garcia MD LAB - CHEMISTRY CHELI MONREAL [facility] ([facility]) [address] [place] [address], [facility] * PHOSPHORUS BLOOD (04/01/2024 3:12 PM STOKER ERECTOR AND SERVICER) Only the most recent of13 resultswithin the time period is included. Phosphorus 2.9 2.8 - 5.1 mg/dL 04/01/2024 5:52 PM STOKER ERECTOR AND SERVICER [facility] Blood BLOOD SPECIMEN / Unknown Lab Venipuncture / Unknown 04/01/2024 3:12 PM STOKER ERECTOR AND SERVICER 04/01/2024 5:30 PM STOKER ERECTOR AND SERVICER Cindy Garcia MD LAB - CHEMISTRY CHELI MONREAL Performing Organization Address [facility]/ZIP Co de Phone Number [facility] [address] [place] [phone], [facility] [phone] * MAGNESIUM BLOOD (04/01/2024 3:12 PM STOKER ERECTOR AND SERVICER) Only the most recent of13 resultswithin the time period is included. Magnesium 2.1 1.6 - 2.6 mg/dL 04/01/2024 4:25 PM STOKER ERECTOR AND SERVICER [facility] Comment:Hemolysis detected i n this specimen. Hemolysis is known to cause elevations in this analyte. Caution should be exercised in the interpretation of this result. Recommend repeat testing if clinically indicated. Blood BLOOD SPECIMEN / Unknown Lab Venipuncture / Unknown 04/01/2024 3:12 PM STOKER ERECTOR AND SERVICER 04/01/2024 3:36 PM STOKER ERECTOR AND SERVICER Cindy Garcia MD LAB - CHEMISTRY CHELI MONREAL Performing Organization Address City/[facility]/ZIP Co de Phone Number [facility] [address] [place] [phone], [facility] [phone] * LAB RESULTS ORDER (03/25/2024) 03/25/2024 Narrative 03/25/2024 Ordered by an unspecified provider. Scanned Document LAB - THERAPEUTIC DR UG MONITORING ORDERABLES * PTT [facility] (03/23/2024 12:25 AM STOKER ERECTOR AND SERVICER) Only the most recent of10 resultswithin the time period is included. APTT 35.4 23.0 - 38.4 Seconds 03/23/2024 1:31 AM STOKER ERECTOR AND SERVICER [facility] Comment:Suggested therapeuti c range for full dose I.V. unfractionated heparin therapy for venous thromboembolism is 71 to 109 seconds. Blood BLOOD SPECIMEN / Unknown Venipuncture / Unknown 03/23/2024 12:25 AM STOKER ERECTOR AND SERVICER 03/23/2024 1:05 AM STOKER ERECTOR AND SERVICER Ghanshyam Dewey PA-C LAB - COAGULATION OR DERABLES Performing Organization Address City/[facility]/ZIP Co de Phone Number [address] [phone], [facility] [phone] * PATHOLOGY PERIPHERAL SMEAR REVIEW (03/18/2024 8:33 AM STOKER ERECTOR AND SERVICER) Path Review Confirmed 03/18/2024 2:44 PM STOKER ERECTOR AND SERVICER [facility] Blood BLOOD SPECIMEN / Unknown Lab Venipuncture / Unknown 03/18/2024 8:33 AM STOKER ERECTOR AND SERVICER 03/18/2024 8:46 AM STOKER ERECTOR AND SERVICER Narrative [facility] - 03/18/2024 2:44 PM STOKER ERECTOR AND SERVICER A rare blast seen. Ghanshyam Dewey PA-C LAB - PATHOLOGY/CYTO LOGY ORDERABLES [address] [address], [place] [phone] * ECHO COMPLETE W CONTRAST (03/15/2024 1:47 PM STOKER ERECTOR AND SERVICER) IVSd 2D 1.314 cm SSM CV FUJ I PACS LVIDd 5.186 cm SSM CV FUJ I PACS LVIDs 3.212 cm SSM CV FUJ I PACS LVOT diam 2.086 cm SSM CV FUJ I PACS LVPWd 1.34 cm SSM CV FUJ I PACS LV biplane EF 72.906 % SSM CV FUJI PACS LV A2C EF 72.639 % SSM CV [facility] I PACS LV A4C EF 72.078 % SSM CV [facility] I PACS LV EDV A2C 124.945 ml SSM CV FU JI PACS LV EDV A4C 128.559 ml SSM CV FU JI PACS LV ESV A2C 34.187 ml SSM CV FU JI PACS LV ESV A4C 35.897 ml SSM CV FU JI PACS LVOT pk lawanda 132.418 cm/s SSM CV F U PACS LVOT VTI 32.536 cm SSM CV [facility] I PACS RVIDd 3.985 cm SSM CV [facility] I PACS RVOT pk lawanda 69.928 cm/s SSM CV F U PACS RVOT VTI 14.149 cm SSM CV [facility] I PACS LA size 3.887 cm SSM CV [facility] I PACS LA vol BP 103.263 ml SSM CV [facility] I PACS RA area 17.733 cm SSM CV [facility] PACS AV pk lawanda regurg 205.453 cm/s SSM CV [facility] PACS AR VTI 104.216 cm SSM CV [facility] I PACS AV mn grad 5.22 mmHg SSM CV FU PACS AV pk lawanda 141.499 cm/s SSM CV [facility] PACS AV VTI 30.145 cm SSM CV [facility] I PACS MV A pk lawanda 84.582 cm/s SSM CV F [facility] PACS MV E pk lawanda 99.639 cm/s SSM CV F [facility] PACS MV E' lateral lawanda 5.461 cm/s SSM CV [facility] PACS MV mn grad 1.183 mmHg SSM CV FU PACS MV VTI 30.572 cm SSM CV [facility] I PACS PV pk lawanda 84.446 cm/s SSM CV [facility] I PACS PV VTI 18.271 cm SSM CV [facility] I PACS TAPSE 1.78 cm SSM CV [facility] I PACS TR pk lawanda 276.773 cm/s SSM CV [facility] I PACS Ascending aorta 3.799 cm SSM CV [facility] PACS LA vol index 0.046 l/m SSM CV [facility] PACS Myocardial strain charge 2 unitless SSM CV [facility] PACS Sinus of Valsalva 3.4 cm SSM CV FUJI PACS ST junction 3.4 cm SSM CV F UJI PACS Anatomical Region Laterality Modality Ultrasound 03/15/2024 2:04 PM STOKER ERECTOR AND SERVICER Narrative 03/15/2024 5:17 PM STOKER ERECTOR AND SERVICER Summary * The left ventricle is normal [...] 2:04 PM Patient Status: I/P Study Site: [facility] Primary Location: [facility] EStud Info Technical Quality: Adequate Exam [...] Attending Physician: Ted Soler Fellow: Josh Knight Mechanical Cad Designer: Dhruv Sorto Left Ventricle Left ventricular [...] 2:04 PM Patient Status: I/P Study Site[facility]: [facility]quate Exam Type: [...] Attending Physician: Ted Soler Fellow: Josh Knight Mechanical Cad Designer: Dhruv Sorto Left Ventricle Left ventricular [...] BLOOD OR BONE MARROW (03/15/2024 9:05 AM STOKER ERECTOR AND SERVICER) MDS Panel by Fish See Note Normal 024 11:26 AM STOKER ERECTOR AND SERVICER [facility] ([facility]) Comment: Test Performed: Myelodysplastic Syndrome (MDS) Panel by FISH (FISH MDS P) Specimen Type: Bone Marrow Indication for Testing: Myelodysplastic syndrome, unspecified RESULT Normal FISH Result Deletion 5q: not detected Monosomy 7: not detected Deletion 7q: not detected Trisomy 8: not detected Deletion 20q: not detected INTERPRETATION There was no evidence of deletion 5q31, monosomy 7, deletion 7q31, trisomy 8, or deletion 28h52-z89.1. This analysis was performed with the MDS panel probes D5S23/EGR1, D7Z1/H0D301, CEP8 (Ortiz Molecular), and Del(20q) (CytoCell). A total of 200 cells were scored for each probe. Cytogenomic Nomenclature (ISCN): nuc nereyda(D5S23,EGR1,D7Z1,D7B888,D8Z2,C85T168,MYBL2)x2[200' This result has been reviewed and approved by Nabila Gonzalez, PhD, FAC A portion of this analysis was performed at the following location(s): [facility] Site CG-[place]#2 INTERPRETIVE INFORMATION: MDS Panel by FISH This test was developed and its performance characteristics determined by [facility]. It has not been cleared or approved by the US Food and Drug Administration. This test was performed in a CLIA certified laboratory and is intended for clinical purposes. EER MDS Fish Panel See Note 2023 11:26 AM STOKER ERECTOR AND SERVICER [facility] ([facility]) Comment: Authorized individuals can access the Arrively Enhanced Report using the following link: [email or web address] Performed By: [facility] [address] [place] [address] Application Technical Designer: Uche Morley MD, PhD CLIA Number: [id number] Other BONE MARROW SPECIMEN / Unknown Collection / Unknown 03/15/2024 9:05 AM STOKER ERECTOR AND SERVICER 03/15/2024 9:30 AM STOKER ERECTOR AND SERVICER Rodo Perez MD LAB - PATHOLOG Y/CYTOLOGY ORDERABLES [facility]) [address] * FISH AML PANEL BLOOD OR BM RFLX PML/DANTE (03/15/2024 9:05 AM STOKER ERECTOR AND SERVICER) Only the most recent of2 resultswithin the time period is included. FISH AML Panel See Note Normal 03/25/2024 10:34 AM [facility] ([facility]) Comment: Test Performed: Acute Myeloid Leukemia Panel by FISH (FISHAML) Specimen Type: Bone Marrow Indication for Testing: Myelodysplastic syndrome, unspecified RESULT Normal FISH Result inv(3) or t(3;3) GATA2::MECOM Fusion: not detected Deletion 5q: not detected Monosomy 7: not detected Deletion 7q: not detected t(8;21) RUNX1::DBSC7A8 Fusion: not detected 11p15 (NUP98) Rearrangement: not detected 11q23 (KMT2A) Rearrangement: not detected inv(16) or t(16;16) CBFB::MYH11 Fusion: not detected INTERPRETATION There was no evidence of GATA2::MECOM (also known as RPN1-EVI1) fusion due to 3q21/3q26.2 inversion or translocation, deletion 5q31, monosomy 7, deletion 7q31, RUNX1::HJZF8G2 fusion due to translocation (8;21)(q21.3;q22), 11p15 (NUP98) rearrangement, 11q23 KMT2A (MLL) rearrangement, or CBFB::MYH11 fusion due to either 16p13.1/16q22 inversion or translocation. This analysis was performed with the AML panel probes RPN1/MECOM, D5S23/EGR1, D7Z1/D4U577, RUNX1/TCMY9B0 (Ortiz Molecular), NUP98 and CBFB-MYH11 (Anglestems), and MLL (KMT2A) (CytoBehalf). A total of 200 cells were scored for each probe. Cytogenomic Nomenclature (ISCN): nuc nereyda(RPN1,MECOM,D5S23,EGR1,D7Z1,Z0D892,ZRFS0N4,NUP98,KMT2A,MYH11,CBF B,RUNX1)x2[200' This result has been reviewed and approved by Mundo Mejia, PhD, [facility] A portion of this analysis was performed at the following location(s): [facility] Site CG-[place]#1 INTERPRETIVE INFORMATION: AML Panel by FISH This test was developed and its performance characteristics determined by [facility]. It has not been cleared or approved by the US Food and Drug Administration. This test was performed in a CLIA certified laboratory and is intended for clinical purposes. EER AML Panel by FISH See Note 03/25/2024 10:34 AM STOKER ERECTOR AND SERVICER [facility] ([facility]) Comment: Authorized individuals can access the Arrively Enhanced Report using the following link: [email or web address] Performed By: [facility] [address] [place] [address] Application Technical Designer: Uche Morley MD, PhD IA Number: [id number] Other BONE MARROW SPECIMEN / Unknown Collection / Unknown 03/15/2024 9:05 AM STOKER ERECTOR AND SERVICER 03/15/2024 9:30 AM STOKER ERECTOR AND SERVICER Rodo Perez MD LAB - PATHOLOG Y/CYTOLOGY ORDERABLES [facility]) [address] [place] [address], [facility] * MYELOID MALIGNANCIES MUTATION PNL (03/15/2024 9:05 AM STOKER ERECTOR AND SERVICER) Only the most recent of2 resultswithin the time period is included. Interpretation Myeloid Malignancy PNL See Note 03/28/2024 2:06 PM STOKER ERECTOR AND SERVICER [facility] ([facility]) Comment: Myeloid Malignancies Mutation Panel NGS Submitted diagnosis or diagnosis under consideration for variant interpretation: Myelodysplastic syndrome, unspecified Note: Prior NGS testing performed on this patient (most recent [facility] accession [id number]) was reviewed in conjunction with the current case to compare molecular variants reported. The previously reported molecular variants DNMT3A, IDH1, and CUX1 are again detected in the current study. In addition, new molecular variants in STAG2, BCOR, JAK2, and CEBPA are now detected. TIER 1: Variants of Known Clinical Significance in Hematologic Malignancies 1. IDH1 c.394C>A, p.Lll292Rvx ([id number]) VAF: 38.4% IDH1 encodes an enzyme that catalyzes the conversion of isocitrate to alpha-ketoglutarate in the citric acid cycle (23). Somatic mutations of IDH1 are found in 4-12% of patients with myelodysplastic syndrome (MDS).This mutation has been reported in hematologic malignancies (4). The prognostic significance of mutated IDH1 in MDS is uncertain (20) (27) (7) (14) (19) (32). 2. DNMT3A c.2206C>T, p.Rvh902Uvx ([id number]) VAF: 42.2% DNMT3A encodes a DNA [...] stem cell transplantation (2). 3. DNMT3A c.2407A>G, p.Vnn936Iua ([id number]) VAF: 38.8% This mutation has also been reported in hematologic malignancies (4). 4. JAK2 c.1849G>T, p.Lpo618Cqd (NM_004972.4) VAF: 14.4% JAK2 encodes a non-receptor protein tyrosine kinase that regulates STAT market research senior project manager factors in response to cytokine receptor signaling (13). JAK2 mutations have been reported in 3-6% of patients with MDS (6) (15) (31). This JAK2 mutation (p.Tfb400Rvz) has also been reported in approximately 10-25% of patients with myelodysplastic/myeloproliferative neoplasms (MDS/MPN) (31) (21). This particular JAK2 mutation occurs in the pseudokinase (JH2) domain and leads to activation of the NOLAN-STAT pathway signaling. The prognostic significance of JAK2 mutations in MDS is unclear (6). 5. STAG2 c.1840C>T, p.Syx668* (NM_[id number]) VAF: 31.7% STAG2 encodes a subunit [...] unmutated cohesin genes (29). 6. BCOR c.3649C>T, p.Wqj9497* ([id number]) VAF: 9.6% BCOR encodes a transcriptional corepressor that interacts with BCL-6 and histone deacetylases (HDACs) (5) (12). Mutations in BCOR are seen in 4% of patients with MDS (5) (11). BCOR mutations in MDS are often frameshift and nonsense mutations that result in brch-ek-infciskv (5) (11). This mutation is predicted to alter the normal function of BCOR. BCOR mutations are associated with a higher incidence of AML transformation in MDS patients and shorter overall survival in MDS patients (5) (11) (16). 7. BCOR c.635_638del, p.Odw486Uxqxs*3 ([id number]) VAF: 6.2% This mutation is also predicted to alter the normal function of BCOR. TIER 2: Variants of Unknown Clinical Significance in Hematologic Malignancies 1. CEBPA c.1074_*9del, p.*359Cysext*58 (NM_[id number]) VAF: 4.7% CEBPA encodes a protein that is a member of the basic region leucine zipper family of market research senior project manager factors (18). Somatic mutations of CEBPA [...] if any, is uncertain. 2. CUX1 c.3085G>A, p.Jxg5173Ihn (NM_[id number]) VAF: 44.8% This variant has been rarely reported in hematologic malignancies (1) (10), to the best of our knowledge. References 1: Gustabo-Fede P, Emmanuelle B, Zhanna CLARK et al, Assessment of Minimal Residual Disease by Next Generation Sequencing in Peripheral Blood as a Complementary Tool for Personalized Transplant Monitoring in Myeloid Neoplasms. J Clin Med 2020. PMID:[id number] 2: Virginie Guo, Juan HERNANDEZ, Ulises Kim et al, Somatic mutations predict poor outcome in patients with myelodysplastic syndrome after hematopoietic stem-cell transplantation. J Clin Oncol 2014. PMID:98847828 3: cBioPortal: http://www.cbioportal.org/ 4: COSMIC: https://cancer.vipin.ac.uk/cosmic 5: Braulio F, Yu V, Nagata Y et al, BCOR and BCORL1 mutations in myelodysplastic syndromes and related disorders. Blood 2013. PMID:14062814 6: Bill M, Jennifer C, Víctor L et al, JAK2 Mutations Are Rare and Diverse in Myelodysplastic Syndromes: Case Series and Review of the Literature. Hematol Rep 2022. PMID:28926297 7: Jahaira GRAY, Kamla E, Mary F et al, IDH1 and IDH2 mutations in myelodysplastic syndromes and role in disease progression. Leukemia 2016. PMID:96067930 8: Asiya I, Day C, Lenin MURPHY et al, Frequency, onset and clinical impact of somatic DNMT3A mutations in therapy-related and secondary acute myeloid leukemia. Haematologica 2012. PMID:92241113 9: Nuha O, Idania Amador, Luanne Payne et al, CEBPA polymorphisms and mutations in patients with acute myeloid leukemia, myelodysplastic syndrome, multiple myeloma and non-Hodgkin's lymphoma. Blood Cells Mol Dis 2008. PMID:81721907 10: Cassandra Kim, Cornell M, Alexis A et al, DNA methylation epitypes highlight underlying developmental and disease pathways in acute myeloid leukemia. Genome Res 2020. PMID:40512772 11: Jenna Burton Holmes AB et al, Whole-exome sequencing identifies somatic mutations of BCOR in acute myeloid leukemia with normal karyotype. Blood 2011. PMID:35228224 12: Lin RUEDA, Yashira W, Darcie Estrada et al, BCoR, a novel corepressor involved in BCL-6 repression. Genes Dev 2000. PMID:18593077 13: Fabian SS, Jen SJ, Amandeep LR et al, Nolan/STAT pathways in cytokine signaling and myeloproliferative disorders: approaches for targeted therapies. Genes Cancer 2010. PMID:59884643 14: Jose J Broussard, Charity Barcenas, Grayson L et al, Mutations of IDH1 and IDH2 genes in early and accelerated phases of myelodysplastic syndromes and MDS/myeloproliferative neoplasms. Leukemia 2010. PMID:94475404 15: Megkervinorfer M, Catherine C, Ahsan W et al, Molecular analysis of myelodysplastic syndrome with isolated deletion of the long arm of chromosome 5 reveals a specific spectrum of molecular mutations with prognostic impact: a study on 123 patients and 27 genes. Haematologica 2017. PMID:[id number] 16: Gregoria BAR, Meliton T, Valerie M et al, Spectrum and prognostic relevance of high lift driver gene mutations in acute myeloid leukemia. Blood 2016. PMID:55913582 17: Mel Hughes, Milton P et al, Dominant-negative mutations of CEBPA, encoding CCAAT/enhancer binding protein-alpha (C/EBPalpha), in acute myeloid leukemia. Yusra Emely 2001. PMID:97272963 18: Mel Hughes, Complexity of CEBPA dysregulation in human acute myeloid leukemia. Clin Cancer Res 2009. PMID:93904554 19: Jose Green M, Hugh Stroud et al, Clinical and biological implications of high lift driver mutations in myelodysplastic syndromes. Blood 2013. PMID:88773994 20: Eileen MM, Rajinder CA, Juju OTERO et al, Differential prognostic effect of IDH1 versus IDH2 mutations in myelodysplastic syndromes: a [facility] study of 277 patients. Leukemia 2012. PMID:68793931 21: Eileen MM, George TL, Genomics of myelodysplastic syndrome/myeloproliferative neoplasm overlap syndromes. Hematology Am Soc Hematol Educ Program 2020. PMID:47439772 22: Marty Rubin, Malika C, Heather N et al, Favorable prognostic significance of CEBPA mutations in patients with de elinor acute myeloid leukemia: a study from the Acute Leukemia [place] (JOSE). Blood 2002. PMID:83155563 23: Bulmaro BENTON, Josse H, Isocitrate dehydrogenase 1 and 2 mutations in cancer: alterations at a crossroads of cellular metabolism. J Natl Cancer Inst 2010. PMID:23890186 24: Jose Valdivia, Ivan V, Yudi U et al, [place] analysis of DNMT3A mutations in hematological malignancies. Leukemia 2013. PMID:48091470 25: Kim AH, Lisa-Pattyhab O, Arnulfo REINOSO et al, The role of mutations in epigenetic regulators in myeloid malignancies. Yusra Rev Cancer 2012. PMID:99066801 26: Robby F, Hubert ISSA, Efrem M et al, CEBPA mutations in 4708 patients with acute myeloid leukemia: differential impact of bZIP and TAD mutations on outcome. Blood 2021. PMID:[id number] 27: Fabiola Mason, Roverto ASH, Sam Lynn et al, IDH1 mutations in patients with myelodysplastic syndromes are associated with an unfavorable prognosis. Haematologica 2010. PMID:81779602 28: Lisa Richmond, Bro Valdivia et al, Rare occurrence of DNMT3A mutations in myelodysplastic syndromes. Haematologica 2011. PMID:37467931 29: Josey S, Liam AD, Makishima H et al, Genetic alterations of the cohesin complex genes in myeloid malignancies. Blood 2014. PMID:06842797 30: Barrett MERRITT, Tono L, Jossue Amador et al, Recurrent DNMT3A mutations in patients with myelodysplastic syndromes. Leukemia 2011. PMID:01136613 31: Lawrence Camargo, Juan Diego Kim, Comparison and Implications of Mutational Profiles of Myelodysplastic Syndromes, Myeloproliferative Neoplasms, and Myelodysplastic/Myeloproliferative Neoplasms: A [place]-Analysis. Front Oncol 2020. PMID:71279651 32: Cornell N, Sarabia F, Yuval N et al, IDH1 Mutation Is an Independent Inferior Prognostic Indicator for Patients with Myelodysplastic Syndromes. Acta Haematol 2017. PMID:24719829 33: Ochoa L, Gabriella R, Hieu ALBERTS, DNMT3A in haematological malignancies. Yusra Rev Cancer 2015. PMID:80350918 This result has been reviewed and approved by Jannette Dutta M.D. Low coverage regions: Listed below are regions where the average sequencing depth (number of times a particular nucleotide is sequenced) in at least 20% of the sqgiyq-es-lsyckynw is less than our stringent cutoff of [...] NOTCH1; NPM1*; NRAS; NSD1; PHF6; PIGA; PPM1D; JTVF05L; PRPF8; PTPN11; RAD21; RUNX1; SAMD9; SAMD9L; SETBP1; [...] developed and its performance characteristics determined by [facility]. It has not been cleared or approved by the U.S. Food and Drug Administration. This test was performed in a CLIA-certified laboratory and is intended for clinical purposes. Myeloid Malignancy Dx Mds Unspec 03/28/2024 2:06 PM STOKER ERECTOR AND SERVICER [facility] ([facility]) Myeloid Malignancy Panel Specimen Bone Marrow 03/28/2024 2:06 PM STOKER ERECTOR AND SERVICER [facility] ([facility]) EER Myeloid Malignancy See Note 03/28/2024 2:06 PM STOKER ERECTOR AND SERVICER [facility] ([facility]) Comment: Authorized individuals can access the WYrimidi Enhanced Report using the following link: [email or web address] Performed By: [facility] [address] [place] [address] Application Technical Designer: Uche Morley MD, PhD IA Number: [id number] Other BONE MARROW SPECIMEN / Unknown Collection / Unknown 03/15/2024 9:05 AM STOKER ERECTOR AND SERVICER 03/15/2024 9:30 AM STOKER ERECTOR AND SERVICER Rodo Perez MD LAB - PATHOLOG Y/CYTOLOGY ORDERABLES [facility]) [address] * FISH PML/DANTE PANEL (03/15/2024 9:05 AM STOKER ERECTOR AND SERVICER) Only the most recent of2 resultswithin the time period is included. EER PML/DANTE Translocation by Fish See Note 03/17/2024 4:41 PM STOKER ERECTOR AND SERVICER [facility] ([facility]) Comment: Authorized individuals can access the Arrively Enhanced Report using the following link: [email or web address] Performed By: [facility] [address] [place] [address] Application Technical Designer: Uche Morley MD, PhD CLIA Number: [id number] PML/DANTE Translocation by FISH See Note 03/17/2024 4:41 PM STOKER ERECTOR AND SERVICER [facility] ([facility]) Comment: Test Performed: PML-DANTE Translocation by FISH (FISH PML) Specimen Type: Bone Marrow Indication for Testing: MDS RESULT Normal FISH Result t(15;17) PML::DANTE Fusion: not detected INTERPRETATION There was no evidence of PML::DANTE fusion due to translocation (15;17)(q24;q21). This analysis was performed with the PML/DANTE probes ([employer]). A total of 200 cells were scored. Cytogenomic Nomenclature (ISCN): nuc nereyda(PML,DANTE)x2[200' This result has been reviewed and approved by Nabila Gonzalez, PhD, [facility] CENTER A portion of this analysis was performed at the following location(s): [facility] INTERPRETIVE INFORMATION: PML/DANTE Translocation by FISH This test was developed and its performance characteristics determined by [facility]. It has not been cleared or approved by the US Food and Drug Administration. This test was performed in a CLIA certified laboratory and is intended for clinical purposes. Other BONE MARROW SPECIMEN / Unknown Collection / Unknown 03/15/2024 9:05 AM STOKER ERECTOR AND SERVICER 03/15/2024 9:30 AM STOKER ERECTOR AND SERVICER Rodo Perez MD LAB - PATHOLOG Y/CYTOLOGY ORDERABLES [facility]) [address] [place] [address], [facility] * FLOW CYTOMETRY BLOOD PROFILE (03/14/2024 10:32 AM STOKER ERECTOR AND SERVICER) Case Report Flow Cytometry Case: [id number] Authorizing Provider: Ghanshyam Dewey PA-C Collected: 03/14/2024 10:32 AM Ordering Location: [facility] Received: 03/14/2024 01:49 PM [...] specimen has been reviewed for quality control lab technician purposes. 03/14/2024 4:58 PM [facility] PATHOLOGY LAB Reason for test MDS (myelodysplastic syndrome) (HCC) 238.75 03/14/2024 4:58 PM [facility] PATH[facility] Client Specimen ID # [id number] 03/14/2024 4:58 PM [facility] PATH[facility] LAB Pathologist Location at [facility] 03/14/2024 4:58 PM [facility] PATH[facility] LAB Disclaimer Test performed at [facility], [address] [place] [address], [address]. *The established laboratory minimum viability is 70%. [...] high complexity clinical testing. 03/14/2024 4:58 PM [facility] PATH[facility] LAB Embedded Images 4:58 PM [facility] LAB Number of markers 19 were performed. A-2 Flow CD10 A-3 Flow CD13 A-5 Flow CD20 A-11 Flow CD2 A-13 Flow CD14 A-16 Flow CD117 A-17 Flow CD11b A-18 Flow CD11c A-1 Flow CD5 A-4 Flow CD19 A-6 Flow CD33 A-7 Flow CD34 A-8 Flow CD45 A-12 Flow CD7 A-14 Flow CD56 A-15 Flow CD64 A-9 [place]+CD19+ A-10 Lambda+CD19+ A-19 Flow HLA-DR 03/14/2024 4:58 PM [facility] PATHOLOGY LAB Blood BLOOD SPECIMEN / Unknown Lab Venipuncture / Unknown 03/14/2024 10:32 AM STOKER ERECTOR AND SERVICER 03/14/2024 1:49 PM STOKER ERECTOR AND SERVICER Ghanshyam Dewey PA-C LAB - PATHOLOGY/CYTO LOGY ORDERABLES Performing Organization Address City/State/[facility] Co de Phone Number [facility] PATHOLOGY LAB [address] [phone] * CYTOMEGALOVIRUS (CMV) QUANTITATIVE PLASMA (03/13/2024 11:26 PM STOKER ERECTOR AND SERVICER) CMV Quant by PCR, Interp Not detected Not detected 03/14/2024 9:00 AM STOKER ERECTOR AND SERVICER [facility] MICRO[facility]OLOGY Blood BLOOD SPECIMEN / Unknown Venipuncture / Unknown 03/13/2024 11:26 PM STOKER ERECTOR AND SERVICER 03/13/2024 11:37 PM STOKER ERECTOR AND SERVICER Narrative [facility] MICROBIOLOG[facility] - 03/14/2024 9:00 AM STOKER ERECTOR AND SERVICER The Cytomegalovirus (CMV) DNA analysis utilized a [...] Soler MD LAB - CHEMISTRY OR DERABLES [facility] MICRO[facility] [address] [place] [address], [facility] [phone] * QUINN-TOVAR VIRUS QUANT BLOOD STL (03/13/2024 11:26 PM STOKER ERECTOR AND SERVICER) Pathologist [facility] EBV Quant by PCR, Interp Not detected Not detected 03/14/2024 8:56 AM STOKER ERECTOR AND SERVICER [facility] MICROBIOLOGY Specimen Type Plasma 03/14/2024 8:56 AM STOKER ERECTOR AND SERVICER [facility] MICRO[facility]OLOG[facility] Blood BLOOD SPECIMEN / Unknown Venipuncture / Unknown 03/13/2024 11:26 PM STOKER ERECTOR AND SERVICER 03/13/2024 11:37 PM STOKER ERECTOR AND SERVICER Narrative [facility] MICROBIOLOG[facility] - 03/14/2024 8:56 AM STOKER ERECTOR AND SERVICER The Quinn-Tovar viral (EBV) DNA analysis utilized [...] Soler MD LAB - CHEMISTRY OR DERABLES [facility]CRO[facility] [address] [place] [address], [facility] [phone] * D-DIMER (03/13/2024 11:26 PM STOKER ERECTOR AND SERVICER) D-Dimer Quantitative <0.27 <=0.50 mcg/mL FEU 03/14/2024 12:00 AM STOKER ERECTOR AND SERVICER [facility] Comment: In the absence of [...] Unknown Venipuncture / Unknown 03/13/2024 11:26 PM STOKER ERECTOR AND SERVICER 03/13/2024 11:37 PM STOKER ERECTOR AND SERVICER eTd Soler MD LAB - COAGULATION ORDERABLES [address] [address], [facility] [phone] * FIBRINOGEN ACTIVITY (03/13/2024 11:26 PM STOKER ERECTOR AND SERVICER) Fibrinogen Clauss 362 200 - 400 mg/dL 03/13/2024 11:59 PM STOKER ERECTOR AND SERVICER [facility] Blood BLOOD SPECIMEN / Unknown Venipuncture / Unknown 03/13/2024 11:26 PM STOKER ERECTOR AND SERVICER 03/13/2024 11:37 PM STOKER ERECTOR AND SERVICER Tde Soler MD LAB - COAGULATION ORDERABLES [address] [address], [place] [phone] * FISH AML+MDS PANEL BLOOD OR BONE MARROW (03/04/2024 4:13 PM STOKER ERECTOR AND SERVICER) [facility] FISH AML with MDS, Therapy-Rltd AML See Note Normal 03/19/2024 4:32 PM STOKER ERECTOR AND SERVICER [facility] ([facility]) Comment: Test Performed: Acute Myelogenous Leukemia (AML) [...] with the Therapy-Related AML panel probes D5S23/EGR1, D7Z1/C8B533, and MLL (KMT2A) ([employer]). A total of 200 cells were scored for each probe. Cytogenomic Nomenclature (ISCN): nuc nereyda(D5S23,EGR1,D7Z1,Z5Z747,KMT2A)x2[200' This result has been reviewed and approved by Charles Pablo MD, [facility] INTERPRETIVE INFORMATION: AML with MDS, Therapy-Related AML, FISH This test was developed and its performance characteristics determined by [facility]. It has not been cleared or approved by the US Food and Drug Administration. This test was performed in a CLIA certified laboratory and is intended for clinical purposes. EER AML with MDS, Therapy-Rltd AML FISH See Note 03/19/2024 4:32 PM STOKER ERECTOR AND SERVICER [facility] ([facility]) Comment: Authorized individuals can access the [facility] Enhanced Report using the following link: [email or web address] Performed By: [facility] [employer] [address] [place] [address] Application Technical Designer: Uche Morley MD, PhD CLIA Number: [id number] Other BLOOD SPECIMEN / Unknown Collection / Unknown 03/04/2024 4:13 PM STOKER ERECTOR AND SERVICER 03/04/2024 4:23 PM STOKER ERECTOR AND SERVICER Cindy Garcia MD LAB - PATHOLOGY/CYTO LOGY ORDERABLES [facility] ([facility]) [address] [place] [address], [facility] * HLA TYPING LOW/HIGH RESOLUTION DPB1 (03/04/2024 4:13 PM STOKER ERECTOR AND SERVICER) Typ DNA LR DPB1 Allele #1 *04 04/29/2024 2:56 PM STOKER ERECTOR AND SERVICER [facility]) Typ DNA LR DPB1 [place]lele #2 *11 04/29/2024 2:56 PM STOKER ERECTOR AND SERVICER [facility] ([facility]) Typ DNA HR DPB1 Allele #1 *04:01:01G 04/29/2024 2:56 PM STOKER ERECTOR AND SERVICER [facility] ([facility]) Typ DNA HR DPB1 Allele #2 *11:01:01G 04/29/2024 2:56 PM STOKER ERECTOR AND SERVICER [facility] ([facility]) Test Methodology RTPCR/NGS 04/29/19 2:56 PM STOKER ERECTOR AND SERVICER [facility]) Date Results Entered [id number] 04/29/2024 2:56 PM STOKER ERECTOR AND SERVICER [facility] ([facility]) Comment: Methodology - Next Generation Sequencing This test was developed and its performance characteristics determined by the [facility]. It has not been cleared or [...] high complexity clinical laboratory testing. CLIA ID# [id number] Performed at: [facility], [address] [place] [address] Title Insurance Examiner: Sandeep Jerry, Ph.D., D([facility]), Blood BLOOD SPECIMEN / Unknown Lab Venipuncture / Unknown 03/04/2024 4:13 PM STOKER ERECTOR AND SERVICER 03/05/2024 9:56 AM STOKER ERECTOR AND SERVICER Cindy Garcia MD LAB - BLOOD BANK ORD ERABLES [facility]) [address] [place] [address], [facility] * HLA TYPING DNA LOW RESOLUTION DR,DQ (03/04/2024 4:13 PM STOKER ERECTOR AND SERVICER) DR DQ Low Resolution DRB1-1 *07 04/29/2024 2:56 PM STOKER ERECTOR AND SERVICER [facility] ([facility]) DR DQ Low Resolution DQB1-1 *02 04/29/2024 2:56 PM STOKER ERECTOR AND SERVICER [facility] ([facility]) DR DQ Low Resolution DRB3-1 Negative 04/29/2024 2:56 PM STOKER ERECTOR AND SERVICER [facility] ([facility]) DR DQ Low Resolution DRB3-2 Negative 04/29/2024 2:56 PM STOKER ERECTOR AND SERVICER [facility] ([facility]) DR DQ Low Resolution DRB4-1 *01 04/29/2024 2:56 PM STOKER ERECTOR AND SERVICER [facility]) DR DQ Low Resolution DRB4-2 Negative 04/29/2024 2:56 PM STOKER ERECTOR AND SERVICER [facility]) DR DQ Low Resolution DRB5-1 Negative 04/29/2024 2:56 PM STOKER ERECTOR AND SERVICER [facility]) DR DQ Low Resolution DRB5-2 Negative 04/29/2024 2:56 PM STOKER ERECTOR AND SERVICER [facility] ([facility]) DR DQ Low Resolution Methodology Real Time PCR 04/29/2024 2:56 PM STOKER ERECTOR AND SERVICER [facility] ([facility]) DR DQ Low Resolution test date [id number] 04/29/2024 2:56 PM STOKER ERECTOR AND SERVICER [facility] ([facility]) Comment: Methodology - Real-Time PCR This test was developed and its performance characteristics determined by the [facility]. It has not been cleared [...] high complexity clinical laboratory testing. CLIA ID# [id number] Performed at: [facility], [address] [place] [address] Title Insurance Examiner: Sandeep Jerry, Ph.D., D([facility]), Blood BLOOD SPECIMEN / Unknown Lab Venipuncture / Unknown 03/04/2024 4:13 PM STOKER ERECTOR AND SERVICER 03/05/2024 9:56 AM STOKER ERECTOR AND SERVICER Cindy Garcia MD LAB - BLOOD BANK ORD ERABLES [facility] ([facility]) [address] * HLA TYPING DNA LOW RESOLUTION A,B,C (03/04/2024 4:13 PM STOKER ERECTOR AND SERVICER) ABC DNA A1 *02 04/29/2024 2:56 PM STOKER ERECTOR AND SERVICER [facility]) ABC DNA A2 *30 04/29/2024 2:56 PM STOKER ERECTOR AND SERVICER [facility]) ABC DNA B1 *13 04/29/2024 2:56 PM STOKER ERECTOR AND SERVICER [facility]) ABC DNA B2 *44 04/29/2024 2:56 PM STOKER ERECTOR AND SERVICER [facility]) ABC DNA BW1 4 04/29/2024 2:56 PM STOKER ERECTOR AND SERVICER [facility]) ABC DNA BW2 4 04/29/2024 2:56 PM STOKER ERECTOR AND SERVICER [facility]) ABC DNA C1 *06 04/29/2024 2:56 PM STOKER ERECTOR AND SERVICER [facility]) ABC DNA C2 *16 04/29/2024 2:56 PM STOKER ERECTOR AND SERVICER [facility]) ABC DNA Methodology Real Time PCR 04/29/2024 2:56 PM STOKER ERECTOR AND SERVICER [facility]) ABC DNA Test Date [id number] 2:56 PM STOKER ERECTOR AND SERVICER [facility] ([facility]) Comment: Methodology - Real-Time PCR This test was developed and its performance characteristics determined by the [facility]. It has not been cleared or [...] high complexity clinical laboratory testing. CLIA ID# [id number] Performed at: [facility], [address] [place] [address] Title Insurance Examiner: Sandeep Jerry, Ph.D., D([facility]), Blood BLOOD SPECIMEN / Unknown Lab Venipuncture / Unknown 03/04/2024 4:13 PM STOKER ERECTOR AND SERVICER 03/05/2024 9:56 AM STOKER ERECTOR AND SERVICER Cindy Garcia MD LAB - BLOOD BANK ORD ERABLES Performing Organization Address City/[facility] Co de Phone Number [facility] ([facility]) [address] [place] [address] * HLA TYPING DNA HIGH RESOLUTION DR (03/04/2024 4:13 PM STOKER ERECTOR AND SERVICER) Blood BLOOD SPECIMEN / Unknown Lab Venipuncture / Unknown 03/04/2024 4:13 PM STOKER ERECTOR AND SERVICER 03/05/2024 9:56 AM STOKER ERECTOR AND SERVICER Narrative [facility] ([facility]) - 04/29/2024 4:00 PM STOKER ERECTOR AND SERVICER See Scanned Report Cindy Garcia MD LAB - BLOOD BANK ORD ERABLES Performing Organization Address [facility] Co de Phone Number [facility] ([facility]) [facility] * HLA TYPING DNA HIGH RESOLUTION DQ (03/04/2024 4:13 PM STOKER ERECTOR AND SERVICER) Blood BLOOD SPECIMEN / Unknown Lab Venipuncture / Unknown 03/04/2024 4:13 PM STOKER ERECTOR AND SERVICER 03/05/2024 9:56 AM STOKER ERECTOR AND SERVICER Narrative [facility] ([facility]) - 04/29/2024 4:00 PM STOKER ERECTOR AND SERVICER See Scanned Report Cindy Garcia MD LAB - BLOOD BANK ORD ERABLES Performing Organization Address City/[facility]/ZIP Co de Phone Number [facility] ([place]) [address] * HLA TYPING DNA HIGH RESOLUTION B (03/04/2024 4:13 PM STOKER ERECTOR AND SERVICER) Blood BLOOD SPECIMEN / Unknown Lab Venipuncture / Unknown 03/04/2024 4:13 PM STOKER ERECTOR AND SERVICER 03/05/2024 9:56 AM STOKER ERECTOR AND SERVICER Narrative [facility] ([facility]) - 04/29/2024 4:00 PM STOKER ERECTOR AND SERVICER See Scanned Report Cindy Garcia MD LAB - BLOOD BANK ORD ERABLES Performing Organization Address City/[facility] Co de Phone Number [facility] ([place]) [address] * HLA TYPING DNA HIGH RESOLUTION A (03/04/2024 4:13 PM STOKER ERECTOR AND SERVICER) Blood BLOOD SPECIMEN / Unknown Lab Venipuncture / Unknown 03/04/2024 4:13 PM STOKER ERECTOR AND SERVICER 03/05/2024 9:56 AM STOKER ERECTOR AND SERVICER Narrative [facility] ([place]) - 04/29/2024 4:01 PM STOKER ERECTOR AND SERVICER See Scanned Report Cindy Garcia MD LAB - BLOOD BANK ORD ERABLES [facility] ([place]) [address] * HLA TYPING DNA HIGH RESOLUTION C (03/04/2024 4:13 PM STOKER ERECTOR AND SERVICER) Blood BLOOD SPECIMEN / Unknown Lab Venipuncture / Unknown 03/04/2024 4:13 PM STOKER ERECTOR AND SERVICER 03/05/2024 9:56 AM STOKER ERECTOR AND SERVICER Narrative [facility] ([place]) - 04/29/2024 4:01 PM STOKER ERECTOR AND SERVICER See Scanned Report Cindy Garcia MD LAB - BLOOD BANK ORD HEMALATHA [facility] ([facility]) [address] [place] [address], [facility] * CHROMOSOME ANALYSIS LEUKEMIA BLD (03/04/2024 4:13 PM STOKER ERECTOR AND SERVICER) Pathologist [facility] Chromosome Analysis Leukemic Blood See Note Normal 03/23/2024 12:39 PM STOKER ERECTOR AND SERVICER [facility] ([facility]) Comment: Test Performed: Chromosome Analysis Specimen Type: [...] FISH AML/PML and TAML MDS performed under [facility] accessions [id number] and [id number] were NORMAL. This result has been reviewed and approved by Margaret Roberson, PhD, [facility] INTERPRETIVE INFORMATION: Chromosome Analysis, Leukemic Blood This test was developed and its performance characteristics determined by [facility]. It has not been cleared or approved by the US Food and Drug Administration. This test was performed in a CLIA certified laboratory and is intended for clinical purposes. EER Chromosome Analysis Leukemic See Note 03/23/2024 12:39 PM STOKER ERECTOR AND SERVICER [facility] ([facility]) Comment: Authorized individuals can access the [facility] Enhanced Report using the following link: [email or web address] Performed By: [facility] [address] [place] [address] Application Technical Designer: Uche Morley MD, PhD CLIA Number: [id number] Blood BLOOD SPECIMEN / Unknown Lab Venipuncture / Unknown 03/04/2024 4:13 PM STOKER ERECTOR AND SERVICER 03/22/2024 5:28 PM STOKER ERECTOR AND SERVICER Cindy Garcia MD LAB - PATHOLOGY/CYTO LOGY ORDERABLES Performing Organization Address City/[facility]/ZIP Co de Phone Number [facility] [employer] [facility]) [address] [place] [address] * HIV-1 HIV-2 ANTIBODY + HIV P24 AG PANEL (New on 08/24) (03/04/2024 4:13 PM STOKER ERECTOR AND SERVICER) Pathologist [facility] HIV Antigen/Antibod y 1 & 2 Non-reacti ve Non-react carlos 03/04/2024 5:12 PM STOKER ERECTOR AND SERVICER [facility] Comment:No Laboratory eviden ce of HIV infection. Blood BLOOD SPECIMEN / Unknown Lab Venipuncture / Unknown 03/04/2024 4:13 PM STOKER ERECTOR AND SERVICER 03/04/2024 4:23 PM STOKER ERECTOR AND SERVICER Cindy Garcia MD LAB - CHEMISTRY ORDE RABNIC [facility] [address] [address], [place] [phone] * BCR-ABL1 CML+AML PCR QUANT PNL (03/04/2024 4:13 PM STOKER ERECTOR AND SERVICER) Pathologist [facility] Interpretation TNP 03/13/2024 5:08 PM STOKER ERECTOR AND SERVICER [facility] ([facility]) Comment: Unable to obtain results. Repeated efforts to analyze this specimen have been unsuccessful. LOW CONTROL GENE COPY NUMBER INDICATED SPECIMEN DEGRADATION. Director Review Comment 5:08 PM [facility] ([facility]) Comment: Dawood Sarabia, PhD, [facility] Director, Molecular Oncology [facility] [place] [address] Background Comment 03/13/2024 5:08 PM [facility] ([facility]) Comment: This assay can detect three different [...] as indicated. Methodology Comment 03/13/2024 5:08 PM [facility] ([facility]) Comment: Total RNA is isolated from the [...] developed and its performance characteristics determined by [facility]. It has not been cleared or approved by the Food and Drug Administration. Blood BLOOD SPECIMEN / Unknown Lab Venipuncture / Unknown 03/04/2024 4:13 PM STOKER ERECTOR AND SERVICER 03/04/2024 4:24 PM STOKER ERECTOR AND SERVICER Narrative [facility] ([facility]) - 03/13/2024 5:08 PM STOKER ERECTOR AND SERVICER Performed at: 01 - [facility] [place] [address] [facility], [place] [id number] Title Insurance Examiner: Cinthya [facility], Phone: [phone] Performed at: 02 - [facility] [place] [address] [facility], [facility], [place] [id number] Title Insurance Examiner: Cinthya [facility], Phone: [phone] Cindy Garcia MD LAB - CHEMISTRY CHELI MONREAL [facility] ([facility]) [address] [place] [id number] * TSH REFLEX FREE T4 (03/04/2024 4:13 PM STOKER ERECTOR AND SERVICER) [facility] TSH 0.961 0.350 - 4.940 uIU/mL 03/04/2024 5:29 PM STOKER ERECTOR AND SERVICER [facility] Blood BLOOD SPECIMEN / Unknown Lab Venipuncture / Unknown 03/04/2024 4:13 PM STOKER ERECTOR AND SERVICER 03/04/2024 4:27 PM STOKER ERECTOR AND SERVICER Cindy Garcia MD LAB - CHEMISTRY CHELI MONREAL [facility] [address] [place] [address], [place] [phone] * RHEUMATOID FACTOR BLOOD QUANTITATIVE (03/04/2024 4:13 PM STOKER ERECTOR AND SERVICER) [facility] Rheumatoid Factor <15 <30 IU/mL 03/04/2024 4:57 PM STOKER ERECTOR AND SERVICER [facility] Rheumatoid Factor Screen Negative Negative 03/04/2024 4:57 PM STOKER ERECTOR AND SERVICER [facility] Blood BLOOD SPECIMEN / Unknown Lab Venipuncture / Unknown 03/04/2024 4:13 PM STOKER ERECTOR AND SERVICER 03/04/2024 4:23 PM STOKER ERECTOR AND SERVICER Cindy Garcia MD LAB - CHEMISTRY CHELI MONREAL [facility] [address] [place] [address], [place] [phone] * CYTOMEGALOVIRUS ANTIBODY IGG BLOOD (03/04/2024 4:13 PM STOKER ERECTOR AND SERVICER) [facility] Cytomegalovirus Antibody IgG <0.20 <=0.70 U/mL 03/05/2024 9:27 PM STOKER ERECTOR AND SERVICER [facility] ([facility]) Comment: INTERPRETIVE INFORMATION: Cytomegalovirus Antibody, IgG 0.59 [...] laboratory at the same time. Performed By: [employer] [address] [place] [address] Application Technical Designer: Uche Morley MD, PhD CLIA Number: [id number] Blood BLOOD SPECIMEN / Unknown Lab Venipuncture / Unknown 03/04/2024 4:13 PM STOKER ERECTOR AND SERVICER 03/04/2024 4:23 PM STOKER ERECTOR AND SERVICER Cindy Garcia MD LAB - CHEMISTRY CHELI [facility] Organization Address City/State/ZIP Co de Phone Number [facility] [employer] [facility]) [address] [place] [address], [facility] * C-REACTIVE PROTEIN (03/04/2024 4:13 PM STOKER ERECTOR AND SERVICER) [facility] C-Reactive Protein 0.5 <=0.5 mg/dL 03/04/2024 4:56 PM STOKER ERECTOR AND SERVICER [facility] Blood BLOOD SPECIMEN / Unknown Lab Venipuncture / Unknown 03/04/2024 4:13 PM STOKER ERECTOR AND SERVICER 03/04/2024 4:27 PM STOKER ERECTOR AND SERVICER Cindy Garcia MD LAB - CHEMISTRY CHELI MONREAL [place] [id number], [facility] [phone] * MARLINE BLOOD SCREEN W/REFLEX TITER (03/04/2024 4:13 PM STOKER ERECTOR AND SERVICER) MARLINE IgG None Detected None Detected 03/05/2024 11:42 PM STOKER ERECTOR AND SERVICER [facility] ([facility]) Comment: If suspicion of connective tissue disease is strong and MARLINE EIA is negative, consider testing for MARLINE by IFA ([id number]). INTERPRETIVE INFORMATION: Anti-Nuclear Antibodies (MARLINE), IgG by TOÑA Antinuclear Antibodies (MARLINE), IgG by TOÑA: MARLINE specimens are screened using enzyme-linked immunosorbent assay (TOÑA) methodology. All TOÑA results reported as Detected are further tested by indirect fluorescent assay (IFA) using HEp-2 substrate with an IgG-specific conjugate. The MARLINE TOÑA screen is designed to detect antibodies against dsDNA, histones, SS-A (Ro), SS-B (La), Pimentel, Pimentel/SANDBLAST OR SHOTBLAST EQUIPMENT TENDER, Scl-70, Mey-1, centromeric proteins, other antigens extracted from the HEp-2 cell nucleus. MARLINE TOÑA assays have been reported to have lower sensitivities than MARLINE IFA for systemic autoimmune rheumatic diseases (SARD). Negative results do not necessarily rule out SARD. Performed By: [facility] [address] [place] [address] Application Technical Designer: Uche Morley MD, PhD CLIA Number: [id number] Blood BLOOD SPECIMEN / Unknown Lab Venipuncture / Unknown 03/04/2024 4:13 PM STOKER ERECTOR AND SERVICER 03/04/2024 4:23 PM STOKER ERECTOR AND SERVICER Cindy Garcia MD LAB - CHEMISTRY CHELI [facility] [employer] [facility]) [address] * ZINC BLOOD (03/04/2024 4:13 PM STOKER ERECTOR AND SERVICER) Pathologist [facility] Emergency Department Zinc 62.4 60.0 - 120.0 ug/dL 03/06/2024 6:35 AM STOKER ERECTOR AND SERVICER [employer] ([facility]) Comment: INTERPRETIVE INFORMATION: Zinc, Serum or Plasma [...] developed and its performance characteristics determined by [employer]. It has not been cleared or approved by the [place] Food and Drug Administration. This test was performed in a CLIA certified laboratory and is intended for clinical purposes. Performed By: [facility] [employer] [address] [place] [address] Application Technical Designer: Uche Morley MD, PhD CLIA Number: [id number] Blood BLOOD SPECIMEN / Unknown Lab Venipuncture / Unknown 03/04/2024 4:13 PM STOKER ERECTOR AND SERVICER 03/04/2024 4:23 PM STOKER ERECTOR AND SERVICER Cindy Garcia MD LAB - CHEMISTRY ELIE [facility] Organization Address City/State/ZIP Co de Phone Number [facility]) [address] [place], [place] [address] * COPPER BLOOD (03/04/2024 4:13 PM STOKER ERECTOR AND SERVICER) [facility] Copper 108.5 70.0 - 140.0 ug/dL 03/06/2024 6:35 AM STOKER ERECTOR AND SERVICER [facility] ([facility]) Comment: INTERPRETIVE INFORMATION: Copper, Serum or Plasma [...] developed and its performance characteristics determined by [employer]. It has not been cleared or approved by the US Food and Drug Administration. This test was performed in a CLIA certified laboratory and is intended for clinical purposes. Performed By: [facility] [address] [place] [address] Application Technical Designer: Uche Morley MD, PhD CLIA Number: [id number] Blood BLOOD SPECIMEN / Unknown Lab Venipuncture / Unknown 03/04/2024 4:13 PM STOKER ERECTOR AND SERVICER 03/04/2024 4:23 PM STOKER ERECTOR AND SERVICER Cindy Garcia MD LAB - CHEMISTRY ORDE RABLES Performing Organization Address [facility]/ZIP Co de Phone Number [facility]) [address] [place], [place] [id number] [place] [address] * ERYTHROCYTE SEDIMENTATION RATE (03/04/2024 4:13 PM STOKER ERECTOR AND SERVICER) Pathologist [facility] Emergency Department Erythrocyte Sedimentation Rate Westergren 14 0 - 20 MM/HR 03/04/2024 5:10 PM STOKER ERECTOR AND SERVICER [facility] Blood BLOOD SPECIMEN / Unknown Lab Venipuncture / Unknown 03/04/2024 4:13 PM STOKER ERECTOR AND SERVICER 03/04/2024 4:27 PM STOKER ERECTOR AND SERVICER Cindy Garcia MD LAB - HEMATOLOGY ORD ERABLES Performing Organization Address [facility]/ZIP Co de Phone Number [address] [address], [facility] [phone] * HEPATITIS B SURFACE ANTIBODY (03/04/2024 4:13 PM STOKER ERECTOR AND SERVICER) Pathologist [facility] Department Hepatitis B Virus Surface Antibody Non-react carlos Non-react carlos 03/04/2024 5:12 PM STOKER ERECTOR AND SERVICER [facility] Comment: < 8 mIU/mL Hepatitis B surface Antibody (HBsAb). Nonreactive for HBsAb - individual is considered not immune to Hepatitis B Virus infection. Hepatitis B Surface Antibody Quantitative 0.3 <8.0 mIU/mL 03/04/2024 5:12 PM STOKER ERECTOR AND SERVICER [facility] Comment: Hepatitis B Surface Antibody Numeric Result Interpretation: Nonreactive: <8.0 mIU/mL Indeterminate: 8.0 - 12.0 mIU/mL Reactive: >12.0 mIU/mL Blood BLOOD SPECIMEN / Unknown Lab Venipuncture / Unknown 03/04/2024 4:13 PM STOKER ERECTOR AND SERVICER 03/04/2024 4:23 PM STOKER ERECTOR AND SERVICER Cindy Garcia MD LAB - CHEMISTRY CHELI [facility] [address] [place] [address], [place] [phone] * HEPATITIS B CORE ANTIBODY TOTAL (03/04/2024 4:13 PM STOKER ERECTOR AND SERVICER) HBc Antibody Total Non-reacti ve Non-reacti ve 03/04/2024 5:12 PM STOKER ERECTOR AND SERVICER [facility] Blood BLOOD SPECIMEN / Unknown Lab Venipuncture / Unknown 03/04/2024 4:13 PM STOKER ERECTOR AND SERVICER 03/04/2024 4:23 PM STOKER ERECTOR AND SERVICER Cindy Garcia MD LAB - CHEMISTRY CHELI [place] [address] [address], [place] [phone] * FOLATE (03/04/2024 4:13 PM STOKER ERECTOR AND SERVICER) Folate 17.7 7.0 - 31.4 ng/mL 03/04/2024 5:29 PM STOKER ERECTOR AND SERVICER [facility] Blood BLOOD SPECIMEN / Unknown Lab Venipuncture / Unknown 03/04/2024 4:13 PM STOKER ERECTOR AND SERVICER 03/04/2024 4:27 PM STOKER ERECTOR AND SERVICER Cindy Garcia MD LAB - CHEMISTRY CHELI [place] [address] [address], [place] [phone] * VITAMIN B12 (03/04/2024 4:13 PM STOKER ERECTOR AND SERVICER) Vitamin B12 524 213 - 816 pg/mL 03/04/2024 5:29 PM STOKER ERECTOR AND SERVICER [facility] Blood BLOOD SPECIMEN / Unknown Lab Venipuncture / Unknown 03/04/2024 4:13 PM STOKER ERECTOR AND SERVICER 03/04/2024 4:27 PM STOKER ERECTOR AND SERVICER Cindy Garcia MD LAB - CHEMISTRY CHELI [place] [address] [address], [place] [phone] * (ABNORMAL) IRON + TRANSFERRIN PANEL [w/Transferrin Sat % + TIBC] (03/04/2024 4:13 PM STOKER ERECTOR AND SERVICER) [facility] Iron 31(L) 50 - 175 ug/dL 03/04/2024 4:53 PM STOKER ERECTOR AND SERVICER [facility] Transferrin 257 174 - 382 mg/dL 03/04/2024 4:53 PM STOKER ERECTOR AND SERVICER [facility] Transferrin Saturation % 10(L) 16 - 50 % 03/04/2024 4:53 PM STOKER ERECTOR AND SERVICER [facility] TIBC Calculated 321 240 - 450 ug/dL 03/04/2024 4:53 PM STOKER ERECTOR AND SERVICER [facility] Blood BLOOD SPECIMEN / Unknown Lab Venipuncture / Unknown 03/04/2024 4:13 PM STOKER ERECTOR AND SERVICER 03/04/2024 4:23 PM STOKER ERECTOR AND SERVICER Cindy Garcia MD LAB - CHEMISTRY CHELI [facility] Performing Organization Address City/[facility]/ZIP Co de Phone Number [address] [address], [place] [phone] * HEPATITIS C ANTIBODY (03/04/2024 4:13 PM STOKER ERECTOR AND SERVICER) [facility] Hepatitis C Antibody Non-react carlos Non-reac tive 03/04/2024 5:12 PM STOKER ERECTOR AND SERVICER [facility] Comment:Hepatitis C Antibody screen indicates no serologic evidence of past or current infection with Hepatitis C Virus. Patients with unexplained liver disease who are immunocompromised or suspected of having acute Hepatitis C infection may benefit from Nucleic Acid Test (YUSRA) for Hepatitis C Viral RNA to confirm Hepatitis C status. Blood BLOOD SPECIMEN / Unknown Lab Venipuncture / Unknown 03/04/2024 4:13 PM STOKER ERECTOR AND SERVICER 03/04/2024 4:23 PM STOKER ERECTOR AND SERVICER Cindy Garcia MD LAB - CHEMISTRY CHELI [place] Performing Organization Address City/[facility]/ZIP Co de Phone Number [facility] [address] [place] [address], [facility] [phone] * (ABNORMAL) FERRITIN (03/04/2024 4:13 PM STOKER ERECTOR AND SERVICER) Ferritin 21(L) 22 - 275 ng/mL 03/04/2024 5:12 PM STOKER ERECTOR AND SERVICER [facility] Blood BLOOD SPECIMEN / Unknown Lab Venipuncture / Unknown 03/04/2024 4:13 PM STOKER ERECTOR AND SERVICER 03/04/2024 4:23 PM STOKER ERECTOR AND SERVICER Cindy Garcia MD LAB - CHEMISTRY CHELI SHARRINIC Performing Organization Address [facility]/ZIP Co de Phone Number [address] [address], [facility] [phone] * DERMATOPATHOLOGY (09/27/2023 12:00 AM CDT) Only the most recent of2 resultswithin the time period is included. Case Report Dermatopathology Report Case: [id number] Authorizing Provider: Timothy Banks MD Collected: 09/27/2023 12:00 AM Ordering Location: [facility] Physician [facility] - Received: 09/28/2023 [...] specimen consists of a shave biopsy measuring 51g54o9 mm. Jar 0. Specimen B: Received is [...] determined by the Dermatopathology Laboratory at [facility], directed by Dr. Randall Pringle. These tests need not be, and therefore are not, approved by the [place] Food and Drug Administration. The tests are used for clinical purposes. Billing Codes Specimen Charges Stain Charges 58249 13421 1 1 4 12:35 PM CDT DERMATOPATHOLOGY LABORATORY Embedded Images 4 12:35 PM CDT DERMATOPATHOLOGY LABORATORY Pathology/Cytology TISSUE SPECIMEN FROM SKIN / Unknown 09/27/2023 09/28/2023 10:46 AM CDT Miscellaneous samples (specimen) TISSUE SPECIMEN FROM SKIN / Unknown 09/27/2023 09/28/2023 10:46 AM CDT Timothy Banks MD LAB - PATHOLOGY/CYTO LOGY ORDERABLES DERMATOPATHOLOGY LABORATORY [facility] - Department of Dermatology [facility] [address] [place] [address], [facility] [phone] Care Teams Personnel Research Scientist Relationship Specialty Start Date End Date Timothy Banks MD [address] [place] [phone] PCP - General 10/19/18 Cindy Garcia MD [address] [place] [address] Chart Clerk/Oncologis t Hematology and Oncology 03/24/24
--- OUTSIDE RECORDS SUMMARY | 2024-06-20 13:25 | XMS_ITS | Clinical Summary ---
Author Organization [facility] [address] Address [address] [place] [address] Care Team Providers Care Inventory Technician Name Role Phone Timothy Banks MD Primary Care Provider [phone] Allergies Active Allergy Reactions Criticality Noted Date [...] (ELIQUIS) 5 mg tabletIndications :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 use of anticoagulant therapy Take 1 [...] beats 03/31/2016 Overview (07/21/2016): Premature ventricular contraction assisted current use of anticoagulant therapy 1 06/01/2015 [...] Department Care Team Description 04/25/2024 3:00 PM SISAL PICKER Ancillary Procedure [facility] Cardiology [address] [place] [address] 8th [place] [address] [place] [address] SVT (supraventricular tachycardia) 04/25/2024 11:45 AM SISAL PICKER Office Visit [facility] Cardiology [address] [place] [address] 8th [place] [address] [place] [address] Alberto Moffett MD Paroxysmal SVT (supraventricular tachycardia) (Primary Dx); SVT (supraventricular tachycardia) 03/27/2024 3:15 PM SISAL PICKER Office Visit [facility] Cardiology [address] [place] [address] Jayro Kaminski MD SVT (supraventricular tachycardia) (Primary Dx); QAMAR (obstructive sleep apnea); 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 use of 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 therapy; RBBB; Hypertensive left ventricular hypertrophy, without heart failure; LVH (left ventricular hypertrophy); Bilateral lower extremity edema 03/22/2024 Telephone [facility] Hematology [address] [facility] [address] [place] [address] Adilene Gonsalves RN from Last [...] CHOLECYSTECTOMY 04/10/1995 - 04/09/1996 HERNIA REPAIR [birth year] PORT PLACEMENT CHEST >5 YEARS 04/11/2024 N/A Medical History Medical History Date Comments Hx Other Medical recurrent DVT, gerd, s/p hiatal hernia surfery, ch; Comments: [facility] 03/31/2016 - Hx Other Medical CKD; Comments: [facility] 03/31/2016 - GERD (gastroesophageal reflux disease) [...] on file Legal Sex Male 4:19 AM SISAL PICKER Gender Identity Male 01/12/2020 7:43 PM CDT Sexual Orientation Straight 01/12/2020 7: 43 PM CDT Obstetrics History Last Filed Vital Signs Vital Sign Reading Time Taken Comments Blood Pressure 142/82 04/25/2024 11:22 AM SISAL PICKER Pulse 77 04/25/2024 11:22 AM SISAL PICKER Temperature 36.3 C (97.4 F) 08/24/2023 9:29 AM CDT Respiratory Rate 18 08/24/2023 9:29 AM CDT Oxygen Saturation 97% 04/25/2024 11:22 AM SISAL PICKER Inhaled Oxygen Concentration - - Weight 97.8 kg (215 lb 9.6 oz) 04/25/2024 11:22 AM SISAL PICKER Height 185.4 cm (6' 1 ) 04/25/2024 11:22 AM SISAL PICKER Body Mass Index 28.44 04/25/2024 11:22 AM SISAL PICKER Plan of Treatment Health Maintenance Due Date [...] Procedure Name Priority Date/Time Associated Diagnosis Comments EXTENDED/ALF HOLTER PATCH (8 DAYS UP TO 15 DAYS) Routine 04/25/2024 12:44 PM SISAL PICKER SVT (supraventricular tachycardia) ECG 12-LEAD Routine 04/25/2024 11:28 AM SISAL PICKER SVT (supraventricular tachycardia) from Last 3 Months Results * Extended/Senior Care Holter Patch (8 days up to 15 days) (04/25/2024 12:44 PM SISAL PICKER) Anatomical Region Laterality Modality Electrocardiogra phy 04/25/2024 12:4 4 PM SISAL PICKER Narrative 05/23/2024 7:12 PM SISAL PICKER [facility] [place] [place] [address] HOLTER MONITOR Patient Name: NADEEM AMAYA W : 1945 (78y 5m) Gender: M Study Date: 04/25/2024 12:44:17 PM Ht(Inch): Wt(Lb): BSA: Tech: Location: [facility] Order Provider: ALBERTO MOFFETT BMI: Ref Provider: ALBERTO MOFFETT PROCEDURES: Holter Report: EXTENDED/ALF HOLTER PATCH (8 DAYS UP TO 15 DAYS) [CAR80]. Enrollment Period: 04/25/2024-05/09/2024. Monitor Number: [id number]. Patient Instructions: Patient picked up device from office and understand directions and use of the equipment. Location: [facility]. INDICATIONS: I47.10 Supraventricular tachycardia, unspecified. FINDINGS: Holter Data: Min Rate: 48 BPM Min Rate Timestamp: 2024-05-09 04:32:31 Max Rate: 253 BPM Max Rate Timestamp: 2024-05-07 11:48:36 Mean Rate: 79 BPM Singlets (PACs): 427323 events Couplets (PACs): 73071 events Total (SVE): 675079 events Singlets (PVCs): 1335 events Couplets (PVCs): 2 events Total (VE): 1350 events Total beats: 1336394 Protocol: Recording Duration (Actual): 7274264.12 Total QRS: 3457581 SUMMARY: *The predominant rhythm was sinus with [...] PDF report can be found in the [facility] patient chart. Electronically Signed By: Kenny Stern Jr., M.D. 05/23/2024 6:10:09 PM SISAL PICKER Electronically Signed By: Kenny Stern Jr., M.D. 05/23/2024 6:10:09 PM SISAL PICKER Procedure Note Kenny Stern MD PhD - 05/23/2024 [facility] [place] [place] [address] HOLTER MONITOR Patient Name: NADEEM AMAYA W : 1945 (78y 5m) Gender: M Study Date: 04/25/2024 12:44:17 PM Ht(Inch): Wt(Lb): BSA: Tech: Location: [facility] Order Provider: ALBERTO MOFFETT BMI: Ref Provider: ALBERTO MOFFETT PROCEDURES: Holter Report: EXTENDED/ALF HOLTER PATCH (8 DAYS UP TO 15 DAYS)[CAR80]. Enrollment Period: 04/25/2024-05/09/2024. Monitor Number: [id number]. Patient Instructions: Patient picked up device from office and understanddirections and use of the equipment. Location: [facility]. INDICATIONS: I47.10 Supraventricular tachycardia, unspecified. FINDINGS: Holter Data: Min Rate: 48 BPM Min Rate Timestamp: 2024-05-09 04:32:31 Max Rate: 253 BPM Max Rate Timestamp: 2024-05-07 11:48:36 Mean Rate: 79 BPM Singlets (PACs): 649305 events Couplets (PACs): 64052 events Total (SVE): 028177 events Singlets (PVCs): 1335 events Couplets (PVCs): 2 events Total (VE): 1350 events Total beats: 8168769 Protocol: Recording Duration (Actual): 5709001.12 Total QRS: 8681864 SUMMARY: *The predominant rhythm was sinus with [...] 170 bpm, 04/27 10:55:48, and the Longest [id number] beats, 04/27 10:55:48. *There were 221,618 SVE [...] PDF report can be found in the Epic patient chart. Electronically Signed By: Kenny Stern Jr., M.D. 05/23/2024 6:10:09 PM SISAL PICKER Electronically Signed By: Kenny Stern Jr., M.D. 05/23/2024 6:10:09 PM SISAL PICKER us Alberto Moffett MD CV CARDIAC SERVICES PRO CEDURES Final Result * ECG 12 lead (04/25/2024 11:28 AM SISAL PICKER) us Alberto Moffett MD ECG ORDERABLES Final R esult from Last 3 Months Insurance [employer] MEDICARE [address] [place] [phone] T MEDICARE [address] [place] [phone] [facility] MEDICARE Care Teams Inventory Technician Relationship Specialty Start Date End Date Timothy Banks MD PCP - General 07/08/16
--- OUTSIDE RECORDS SUMMARY | 2024-06-20 13:25 | XMS_ITS | Encounter Summary ---
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) Social History Tobacco Use Types Packs/Day Years Used Date Smoking Tobacco: Never Smokeless Tobacco: Never Alcohol Use Standard Drinks/Week Comments Yes 0 (1 standard drink = 0.6 oz pur e alcohol) Very Ocasionally Sex and Gender Information Value Date Recorded Sex Assigned at Male 04/05/2024 3:07 PM RUSTIC FENCE BUILDER Legal Sex Male 10:53 AM CDT Gender Identity Male 04/05/2024 3:07 PM RUSTIC FENCE BUILDER Sexual Orientation Not on file documented as of this encounter Plan of Treatment Not on file documented as of this encounter Visit Diagnoses Diagnosis 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 [address] PCP - General Family Practice 02/01/24 documented as of this encounter
== END 2024-06-20 11:29 | disposition home or self-care (01) ==
PROVIDERS: PCP Family Medicine; Visit Provider Internal Medicine Hematology & Oncology
DX: C92.00 Acute myeloblastic leukemia, not having achieved remission (principal)
CPT/HCPCS: 36415; 80047; 85025; 85055

== ENCOUNTER 2024-07-23 11:29 | Outpatient (CLI) | payer MEDICARE, SELFPAY ==
[2024-07-23 11:45] LABS: Hematocrit 40.9 % (42.0-52.0); Hemoglobin 13.6 g/dL (14.0-18.0); Immature Granulocyte Absolute 0.15 K/mm3 (0.00-0.031); Immature Granulocyte Percent A 6.4 % (0-0.5); Immature Platelet Fraction Pct 8.6 % (0.9-11.2); Lymphocytes Absolute Auto 0.67 K/mm3 (0.9-3.2); Lymphocytes Percent Auto 28.8 % (18.3-44.2); Mean Corpuscular HGB Conc 33.3 g/dl (32-36); Mean Corpuscular Hemoglobin 31.1 pg (26-34); Mean Corpuscular Volume 93.4 fl (80-100); Monocytes Absolute Auto 0.2 K/mm3 (0.1-0.6); Monocytes Percent Auto 6.4 % (2.6-8.5); Neutrophils Absolute Auto 1.4 K/mm3 (1.3-6.7); Neutrophils Percent Auto 58.4 % (45.5-73.1); Platelet Count Result 30 k/mm3 (150-375); Red Blood Count 4.38 M/mm3 (4.6-6.20); Red Cell Distribution Width 19.7 % (11.5-14.5); White Blood Count 2.3 K/mm3 (4.5-10.0)
[2024-07-23 11:48] LABS: Platelet Estimate Decreased (Adequate); Schistocytes None Seen
[2024-07-23 11:52] LABS: Anisocytosis 2+
--- OUTSIDE RECORDS SUMMARY | 2024-07-23 12:46 | XMS_ITS | Referral Summary ---
Author Organization [facility] [place] [address] Address [address] [place] [address] Care Team Providers Care Fruit Sprayer Name Role Phone Timothy Banks MD Primary Care Provider Encounters Date Type Department Care Team Description 06/28/2024 Telephone [facility] Cardiology [address] [place] [address] Advanced Medicine 8th [place] [address] [place] [address] Alberto Moffett MD 04/25/2024 3:00 PM TORTS LAW PROFESSOR Ancillary Procedure [facility] Cardiology [address] [place] [address] 8th [place] [address] [place] [address] SVT (supraventricular tachycardia) 04/25/2024 11:45 AM TORTS LAW PROFESSOR Office Visit [facility] Cardiology [address] [place] [address] 8th [place] [address] [place] [address] Alberto Moffett MD Paroxysmal SVT (supraventricular tachycardia) (Primary Dx); SVT (supraventricular tachycardia) from Last 3 Months Allergies Active Allergy [...] 2 Active apixaban (ELIQUIS) 5 mg tabletIndications :MCFP current use of anticoagulant therapy Take 1 [...] on file Legal Sex Male 4:19 AM TORTS LAW PROFESSOR Gender Identity Male 01/12/2020 7:43 PM CDT Sexual Orientation Straight 01/12/2020 7: 43 PM CDT Last Filed Vital Signs Vital Sign Reading Time Taken Comments Blood Pressure 142/82 04/25/2024 11:22 AM TORTS LAW PROFESSOR Pulse 77 04/25/2024 11:22 AM [employer] LAW PROFESSOR Temperature 36.3 C (97.4 F) 08/24/2023 9:29 AM CDT Respiratory Rate 18 08/24/2023 9:29 AM CDT Oxygen Saturation 97% 04/25/2024 11:22 AM TORTS LAW PROFESSOR Inhaled Oxygen Concentration - - Weight 97.8 kg (215 lb 9.6 oz) 04/25/2024 11:22 AM TORTS LAW PROFESSOR Height 185.4 cm (6' 1 ) 04/25/2024 11:22 AM TORTS LAW PROFESSOR Body Mass Index 28.44 04/25/2024 11:22 AM TORTS LAW PROFESSOR Plan of Treatment Not on file Procedures Procedure Name Priority Date/Time Associated Diagnosis Comments EXTENDED/PRISON HOLTER PATCH (8 DAYS UP TO 15 DAYS) Routine 04/25/2024 12:44 PM TORTS LAW PROFESSOR SVT (supraventricular tachycardia) ECG 12-LEAD Routine 04/25/2024 11:28 AM TORTS LAW PROFESSOR SVT (supraventricular tachycardia) from Last 3 Months Results * Extended/Prison Holter Patch (8 days up to 15 days) (04/25/2024 12:44 PM TORTS LAW PROFESSOR) Anatomical Region Laterality Modality Electrocardiogra phy 04/25/2024 12:4 4 PM TORTS LAW PROFESSOR Narrative 05/23/2024 7:12 PM TORTS LAW PROFESSOR [facility] [place] [address] HOLTER MONITOR Patient Name: NADEEM AMAYA W : 1945 (78y 5m) Gender: M Study Date: 04/25/2024 12:44:17 PM Ht(Inch): Wt(Lb): BSA: Tech: Location: [facility] Order Provider: ALBERTO MOFFETT BMI: Ref Provider: ALBERTO MOFFETT PROCEDURES: Holter Report: EXTENDED/PRISON HOLTER PATCH (8 DAYS UP TO 15 DAYS) [CAR80]. Enrollment Period: 04/25/2024-05/09/2024. Monitor Number: [id number]. Patient Instructions: Patient picked up device from office and understand directions and use of the equipment. Location: [facility]. INDICATIONS: I47.10 Supraventricular tachycardia, unspecified. FINDINGS: Holter Data: Min Rate: 48 BPM Min Rate Timestamp: 2024-05-09 04:32:31 Max Rate: 253 BPM Max Rate Timestamp: 2024-05-07 11:48:36 Mean Rate: 79 BPM Singlets (PACs): 022883 events Couplets (PACs): 10956 events Total (SVE): 135948 events Singlets (PVCs): 1335 events Couplets (PVCs): 2 events Total (VE): 1350 events Total beats: [id number] Protocol: Recording Duration (Actual): 9868928.12 Total QRS: 1118769 SUMMARY: *The predominant rhythm was sinus with [...] PDF report can be found in the [facility] patient chart. Electronically Signed By: Kenny Stern Jr., M.D. 05/23/2024 6:10:09 PM TORTS LAW PROFESSOR Electronically Signed By: Kenny Stern Jr., M.D. 05/23/2024 6:10:09 PM TORTS LAW PROFESSOR Procedure Note Kenny Stern MD PhD - 05/23/2024 [facility] [place] [address] HOLTER MONITOR Patient Name: NADEEM AMAYA W : 1945 (78y 5m) Gender: M Study Date: 04/25/2024 12:44:17 PM Ht(Inch): Wt(Lb): BSA: Tech: Location: [facility] Order Provider: ALBERTO MOFFETT BMI: Ref Provider: ALBERTO MOFFETT PROCEDURES: Holter Report: EXTENDED/PRISON HOLTER PATCH (8 DAYS UP TO 15 DAYS)[CAR80]. Enrollment Period: 04/25/2024-05/09/2024. Monitor Number: [id number]. Patient Instructions: Patient picked up device from office and understanddirections and use of the equipment. Location: [facility]. INDICATIONS: I47.10 Supraventricular tachycardia, unspecified. FINDINGS: Holter Data: Min Rate: 48 BPM Min Rate Timestamp: 2024-05-09 04:32:31 Max Rate: 253 BPM Max Rate Timestamp: 2024-05-07 11:48:36 Mean Rate: 79 BPM Singlets (PACs): 461085 events Couplets (PACs): 77133 events Total (SVE): 654993 events Singlets (PVCs): 1335 events Couplets (PVCs): 2 events Total (VE): 1350 events Total beats: 3687622 Protocol: Recording Duration (Actual): 1934133.12 Total QRS: 3890611 SUMMARY: *The predominant rhythm was sinus with [...] 170 bpm, 04/27 10:55:48, and the Longest [id number] beats, 04/27 10:55:48. *There were 221,618 SVE [...] 170 bpm, 04/27 10:55:48, and the Longest [id number] beats, 04/27 10:55:48. *There were 221,618 SVE beats with a burden of 14 %. There were 3,990occurrences of Supraventricular Tachycardia with the Fastest episode 253 bpm, 04/2810:48:32, and the Longest episode 9m 57.8s, 04/26 04:27:10. *There were 0 Patient Triggers. 2. Agree with findings from [employer] document. 3. The PDF report can be found in the [facility] patient chart. Electronically Signed By: Kenny Stern Jr., M.D. 05/23/2024 6:10:09 PM TORTS LAW PROFESSOR Electronically Signed By: Kenny Stern Jr., M.D. 05/23/2024 6:10:09 PM TORTS LAW PROFESSOR us Alberto Moffett MD CV CARDIAC SERVICES PRO CEDURES Final Result * ECG 12 lead (04/25/2024 11:28 AM TORTS LAW PROFESSOR) us Alberto Moffett MD ECG ORDERABLES Final R esult from Last 3 Months Insurance [facility] Address: [facility] [id number] [place] [address] Care Teams Fruit Sprayer Relationship Specialty Start Date End Date Timothy Banks MD PCP - General 07/08/16
--- OUTSIDE RECORDS SUMMARY | 2024-07-23 12:46 | XMS_ITS | Encounter Summary ---
Author Organization [facility] Address [address] [place] [address] Phone Care Team Providers Care Motorboat Mechanic Inboard/Outboard Name Role Phone Timothy Banks MD Primary Care Provider + [phone] Encounter Details Date Type Department Care Team (Late st Contact Info) Description 08/25/2017 Orders Only [facility] ProviderDusty MD [address] [place] [address] Social History Tobacco Use Types Packs/Day Years Used Date Smoking Tobacco: Never Smokeless Tobacco: Never Alcohol Use Standard Drinks/Week Comments Yes 0 (1 standard drink = 0.6 oz pur e alcohol) Sex and Gender Information Value Date Recorded Sex Assigned at Not on file Legal Sex Male 4:19 AM COATER SMOKING PIPE Gender Identity Male 01/12/2020 7:43 PM CDT [...] on filedocumented in this encounter Care Teams Motorboat Mechanic Inboard/Outboard Relationship Specialty Start Date End Date Timothy Banks MD PCP - General 07/08/16 documented as of this encounter
--- OUTSIDE RECORDS SUMMARY | 2024-07-23 12:46 | XMS_ITS | Encounter Summary ---
Author Organization [facility] Address [address] [place] [address] Phone Care Team Providers Care Oracle Ebs Consultant Name Role Phone Timothy Banks MD Primary Care Provider [phone] Reason for Referral * Cardiology (Routine) - Closed Specialty Diagnoses / Procedures Referred By Contac t Referred To Contact Diagnoses SVT (supraventricular tachycardia) Procedures Extended/Long-Term Holter Patch (8 days up to 15 days) Alberto Moffett MD [address] [facility] [address] [place] [address] Phone: tel: fax: [facility]iology [address] [place] [address] 8th [place] [address] [place] [address] Phone: tel: fax: Referral ID Status Reason Start Date Expiration Date Visits Re quested Visits Authorized [id number] Closed 04/25/2024 05/25/2025 1 1 NE SUPERINTENDENT Reason for Visit * Consultation (Routine) - Authorized Specialty Diagnoses / Procedures Referred By Contac t Referred To Contact Cardiology Diagnoses SVT (supraventricular tachycardia) Ritu Adame NP [address] [place] [address] Phone: tel: fax: Alberto Moffett MD [address] [facility] [address] [place] [address] Phone: tel: fax: Referral ID Status Reason Start Date Expiration Date Visits Requested Visits Authorized [id number] Authorized Specialty Services Required 4 02/21/2025 12 12 Encounter Details Date Type Department Care Team (Late st Contact Info) Description 04/25/2024 11:45 AM MARINE SUPERINTENDENT Office Visit [facility] Cardiology [address] [facility] 8th [place] [address] [place] [phone] Alberto Moffett MD [address] [facility] [address] [place] [address] Paroxysmal SVT (supraventricular tachycardia) (Primary Dx); SVT (supraventricular tachycardia) Social History Tobacco Use Types Packs/Day Years Used Date Smoking Tobacco: Never Smokeless Tobacco: Never Alcohol Use Standard Drinks/Week Comments Yes 0 (1 standard drink = 0.6 oz pur e alcohol) Sex and Gender Information Value Date Recorded Sex Assigned at Not on file Legal Sex Male 4:19 AM MARINE SUPERINTENDENT Gender Identity Male 01/12/2020 7:43 PM CDT Sexual Orientation Straight 01/12/2020 7: 43 PM CDT documented as of this encounter Last Filed Vital Signs Vital Sign Reading Time Taken Comments Blood Pressure 142/82 04/25/2024 11:22 AM MARINE SUPERINTENDENT Pulse 77 04/25/2024 11:22 AM MARINE SUPERINTENDENT Temperature - - Respiratory Rate - - Oxygen Saturation 97% 04/25/2024 11:22 AM MARINE SUPERINTENDENT Inhaled Oxygen Concentration - - Weight 97.8 kg (215 lb 9.6 oz) 04/25/2024 11:22 AM MARINE SUPERINTENDENT Height 185.4 cm (6' 1 ) 04/25/2024 11:22 AM MARINE SUPERINTENDENT Body Mass Index 28.44 04/25/2024 11:22 AM MARINE SUPERINTENDENT documented in this encounter Patient Instructions * Patient Instructions* Alberto Moffett MD - 04/25/2024 11:45 AM MARINE SUPERINTENDENT EKG today shows sinus rhythm with frequent PACs Are level of aggression with treating these extra beats depends on symptoms There is also a history of SVT It would be very reasonable at this time to continue current medical therapy and watch burden moving forward A more potent antiarrhythmic drug or EP study/catheter ablation could be considered in the future if symptoms worsen NE SUPERINTENDENT documented in this encounter Progress Notes * Alberto Moffett MD - 04/25/2024 11:45 AM CST Consult Note - Cardiac Electrophysiology Patient Name: Nadeem Amaya Date of : 1945 Primary Physician: Timothy Banks MD I had the pleasure of seeing Nadeem Amaya in consultation at the [facility]. I have reviewed the pertinent data originating outside our institutionand outside my specialty within our institution and summarized the pertinent information below. As you well know, he is a 78 y.o. male with the following arrhythmia-specific history: SVT Reported episode 01/2024 of narrow complex tachycardia to 200s soon after receiving Neupogen injection. Responded to IV metoprolol Second episode to the 160s after receiving another Neupogen injection which self-resolved Started on diltiazem, but continues to report ongoing palpitations Holter monitor in 2018 with 2.4% burden of supraventricular ectopy, no atrial fibrillation detected PVCs Low PVC burden (<1%) on above Holter monitor in 2018 AML Recently diagnosed and being treated at [facility]. Currently on venetoclax DVT on Eliquis QAMAR on CPAP Mr. Amaya is a 78-year-old male with above PMH who presents to [facility] care. He reports longstanding history of palpitations that he did not think much of. During his recent hospitalization for diverticulitis late last year he was receiving an injection of Neupogen and soon after noticed heart racing and was noted to be in SVT with heart rate in the 200s. He was given IV push of metoprolol and he subsequently converted to normal sinus rhythm. He says he soon after received another injection ofNeupogen and had a similar episode but his symptoms were not as severe and his heart rates were in the 160s. This lasted for a couple of minutes and self-resolved. Since these episodes he notes that he has continued to have brief periods of palpitations and sometimes get a flushing feeling that goes up of his neck. They usually resolve after a few minutes. He was started on diltiazem after his hospitalization but has not noticed a significant difference sincestarting it. He does occasionally get lightheaded but has not checked his blood pressure during these episodes and notes that it is usually positional. Denies episodes of syncope. Has not had any severe episodes similar to the 1 during his admission. Also notes that he is unsure if his current chemo could be contributing to his fatigue and lightheadedness. Past Medical History Past Medical History: Diagnosis Date Cataract 2018 Chronic bronchitis (HCC) ? Chronic kidney disease 2009 GERD (gastroesophageal reflux disease) 1974 Heart disease 2015 HX OTHER MEDICAL recurrent DVT, gerd, s/p hiatal hernia [facility], ; Comments: [facility] 03/31/2016 - HX OTHER MEDICAL CKD; Comments: [facility] 03/31/2016 - Sleep apnea 2017 Past Surgical History Past Surgical History: Procedure Laterality Date ANGIOPLASTY 2004 APPENDECTOMY 1995 CATARACT EXTRACTION 2017 CHOLECYSTECTOMY 1995 HERNIA REPAIR 1945/1946 PORT PLACEMENT CHEST >5 YEARS N/A 04/11/2024 Medications Current Outpatient Medications: albuterol HFA (PROAIR HFA) 90 mcg/actuation inhaler, inhale 2 puff by inhalation route every 4 - 6 hours as needed, Disp: 0 Inhaler, Rfl: 0 allopurinoL (ZYLOPRIM) 300 mg tablet, Take 1 tablet (300 mg total) by mouth daily, Disp: , Rfl: apixaban (ELIQUIS) 5 mg tablet, Take 1 [...] route every day, Disp: 0, Rfl: 0 dilTIAZem CD 120 mg 24 hr capsule, Take 1 capsule (120 mg total) by mouth daily, Disp: 90 capsule, Rfl: 3 ferrous sulfate 325 mg (65 mg of elemental iron) tablet, Take 1 tablet (325 mg total) by mouth every 48 hours, Disp: , Rfl: folic acid 0.8 mg capsule, 0.8 mg., Disp: 0, Rfl: 0 furosemide (LASIX) 20 mg tablet, Take 1 tablet (20 mg total) by mouth daily as needed (swelling), Disp: 30 tablet, Rfl: 1 hydrocortisone 2.5 % ointment, , Disp: , Rfl: lansoprazole (PREVACID) 30 mg capsule, Take 1 capsule (30 mg total) by mouth daily, Disp: , Rfl: levoFLOXacin (LEVAQUIN) 500 mg tablet, Take 1 tablet (500 mg total) by mouth daily, Disp: , Rfl: posaconazole (NOXAFIL) 100 mg tablet,delayed release (DR/EC), Take 3 tablets (300 mg total) by mouth daily, Disp: , Rfl: valACYclovir (VALTREX) 500 mg tablet, Take 1 tablet (500 mg total) by mouth 2 (two) times a day, Disp: , Rfl: venetoclax (VENCLEXTA) 100 mg tablet, Take 1 tablet (100 mg total) by mouth daily, Disp: , Rfl: Allergies Allergies Allergen Reactions Iv Contrast Dye [Iodinated Contrast Media] Hives Family History Family History Problem Relation Age of Onset Alzheimer's disease Mother Alzheimer's disease Father Alzheimer's disease Sister Alzheimer's disease Brother Social History Social History Tobacco Use Smoking status: Never Smokeless tobacco: Never Substance and Sexual Activity Drug use: No Sexual activity: Yes Partners: Female Comment: Spouse Alcohol Use: Not At Risk (04/11/2024) Received from [facility] AUDIT[facility]C Frequency of Alcohol Consumption: Never Average Number of Drinks: Patient does not drink Frequency of Binge Drinking: Never Review of Systems ROS: Constitutional: no fevers, chills, or weight loss Eyes: no icterus and visual disturbance HENT: no snoring or sore throat Resp: no cough, shortness of breath, or wheezing Cards: + fatigue, irregular heart beat, and palpitations. Denies paroxysmal nocturnal dyspnea GI: no change in bowel habits, hematochezia or melena : no dysuria and frequency Heme/lymphatic: no bleeding or easy bruising MSK: no muscle weakness, myalgias, or arthralgias Neruo: no dizziness, speech problems and vertigo Endo: no temperature intolerance, polyuria, polydipsia Allergic/Immunologic: no anaphylaxis or angioedema Objective Vitals: 04/25/24 1122 BP: 142/82 Pulse: 77 SpO2: 97% Weight: 97.8 kg (215 lb 9.6 oz) Height: 185.4 cm (6' 1 ) Physical Exam Constitutional: No distress. Head: Normocephalic. Nose: Nose normal. Mouth/Throat: Mucous membranes are normal. Eyes: Sclera Anicteric Neck: Supple without appreciable lymphadenopathy, carotid bruits Cardiovascular: Regular rhythm with occasional extra beats, S1 normal and S2 normal. No murmurs/rubs/gallops. Pulmonary/Chest: Effort normal and breath sounds normal. Abdominal: Soft. Normal appearance. Neurological: alert, oriented Skin: warm and dry, without rashes. Psychiatric: normal mood and affect. Diagnostic Data ECG performed today and reviewed personally reveals normal sinus rhythm with frequent multiform PACs Labs Creatinine Date Value Ref Range Status 08/24/2023 1.31 (H) 0.80 - 1.30 mg/dL Final Comment: Testing performed by: [facility], [address] [place] [phone] , Plt Date Value Ref Range Status 08/24/2023 224 140 - 440 K/cumm Final Comment: Testing performed by: [facility], [address] [place] [phone] , WBC Date Value Ref Range Status 08/24/2023 2.1 (L) 3.8 - 9.8 K/cumm Final Comment: Testing performed by: [facility], [address] [place] [phone] , Hgb Date Value Ref Range Status 08/24/2023 13.3 (L) 13.8 - 17.2 g/dL Final Comment: Testing performed by: [facility], [address] [place] [phone] Visit Diagnoses (I47.10) SVT (supraventricular tachycardia) (HCC) Plan: Ambulatory referral to Cardiac Electrophysiology, ECG 12 lead Impression and Plan Supraventricular tachycardia Mr. Amaya's prior events sound most consistent with an SVT, though we do not have the tracings to review. His ECG today shows normal sinus rhythm, but does show frequent multiform PACs. He has continued to have palpitations since his recent hospitalization. Given it has been sometime since his last monitor in 2018, we will plan for a repeat 14 day event monitor to further evaluate arrhythmia. Given his recent AML diagnosis and current chemotherapy treatment, we will plan for conservative measures for the time being with diltiazem. He will closely monitor his blood pressure to evaluate if diltiazem is causing symptomatic hypotension. If this is the case we can transition to an alternate medication. We discussed both transitioning to a more potent antiarrhythmic drug vs. catheter ablation, but will defer for the time being and continue his current regimen. We will reassess his need for this based on above workup and or progression of his symptoms. Thank you for allowing us to participate in the care of this pleasant patient. Please do not hesitate to call us if any questions arise. Respectfully, Raheem Krishnan MD Fellow Physician, Cardiology Cardiovascular Division, [facility] in [place] I have seen and examined the patient on 04/25/2024 . I agree with the findings and plan of care as documented in the fellow's note. Alberto Moffett MD rod drawer Director, EP Fellowship Program [facility] Division of Cardiology, [place] [address] [place] [address] This note was transcribed using speech recognition software. As a result, there may be grammatical and spelling errors that are unintended. If there are any questions or major inaccuracies, please contact us. NE SUPERINTENDENT documented in this encounter Plan of Treatment Not on file documented as of this encounter Procedures Procedure Name Priority Date/Time Associated Diagnosis Comments ECG 12-LEAD Routine 04/25/2024 11:28 AM MARINE SUPERINTENDENT SVT (supraventricular tachycardia) documented in this encounter Results * Extended/Long-Term Holter Patch (8 days up to 15 days) (04/25/2024 12:44 PM MARINE SUPERINTENDENT) Anatomical Region Laterality Modality Electrocardiogra phy 04/25/2024 12:4 4 PM MARINE SUPERINTENDENT Narrative 05/23/2024 7:12 PM MARINE SUPERINTENDENT [facility] [place] [address] HOLTER MONITOR Patient Name: NADEEM AMAYA W : 1945 (78y 5m) Gender: M Study Date: 04/25/2024 12:44:17 PM Ht(Inch): Wt(Lb): BSA: Tech: Location: [facility] Order Provider: ALBERTO MOFFETT BMI: Ref Provider: ALBERTO MOFFETT PROCEDURES: Holter Report: EXTENDED/RESIDENTIAL HOLTER PATCH (8 DAYS UP TO 15 DAYS) [CAR80]. Enrollment Period: 04/25/2024-05/09/2024. Monitor Number: [id number]. Patient Instructions: Patient picked up device from office and understand directions and use of the equipment. Location: [facility]. INDICATIONS: I47.10 Supraventricular tachycardia, unspecified. FINDINGS: Holter Data: Min Rate: 48 BPM Min Rate Timestamp: 2024-05-09 04:32:31 Max Rate: 253 BPM Max Rate Timestamp: 2024-05-07 11:48:36 Mean Rate: 79 BPM Singlets (PACs): 254483 events Couplets (PACs): 81975 events Total (SVE): 874393 events Singlets (PVCs): 1335 events Couplets (PVCs): 2 events Total (VE): 1350 events Total beats: 3911556 Protocol: Recording Duration (Actual): 8734654.12 Total QRS: 9051570 SUMMARY: *The predominant rhythm was sinus with [...] PDF report can be found in the [facility] patient chart. Electronically Signed By: Kenny Stern Jr., M.D. 05/23/2024 6:10:09 PM MARINE SUPERINTENDENT Electronically Signed By: Kenny Stern Jr., M.D. 05/23/2024 6:10:09 PM MARINE SUPERINTENDENT Procedure Note Kenny Stern MD PhD - 05/23/2024 [facility] [place] [address] HOLTER MONITOR Patient Name: NADEEM AMAYA W : 1945 (78y 5m) Gender: M Study Date: 04/25/2024 12:44:17 PM Ht(Inch): Wt(Lb): BSA: Tech: Location: [facility] Order Provider: ALBERTO MOFFETT BMI: Ref Provider: ALBERTO MOFFETT PROCEDURES: Holter Report: EXTENDED/RESIDENTIAL HOLTER PATCH (8 DAYS UP TO 15 DAYS)[CAR80]. Enrollment Period: 04/25/2024-05/09/2024. Monitor Number: [id number]. Patient Instructions: Patient picked up device from office and understanddirections and use of the equipment. Location: [facility]. INDICATIONS: I47.10 Supraventricular tachycardia, unspecified. FINDINGS: Holter Data: Min Rate: 48 BPM Min Rate Timestamp: 2024-05-09 04:32:31 Max Rate: 253 BPM Max Rate Timestamp: 2024-05-07 11:48:36 Mean Rate: 79 BPM Singlets (PACs): 458661 events Couplets (PACs): 81878 events Total (SVE): 909844 events Singlets (PVCs): 1335 events Couplets (PVCs): 2 events Total (VE): 1350 events Total beats: 9713032 Protocol: Recording Duration (Actual): 3045313.12 Total QRS: 6625237 SUMMARY: *The predominant rhythm was sinus with [...] 170 bpm, 04/27 10:55:48, and the Longest [email or web address] beats, 04/27 10:55:48. *There were 221,618 SVE [...] 170 bpm, 04/27 10:55:48, and the Longest [id number] beats, 04/27 10:55:48. *There were 221,618 SVE beats with a burden of 14 %. There were 3,990occurrences of Supraventricular Tachycardia with the Fastest episode 253 bpm, 04/2810:48:32, and the Longest episode 9m 57.8s, 04/26 04:27:10. *There were 0 Patient Triggers. 2. Agree with findings from [employer] document. 3. The PDF report can be found in the [facility] patient chart. Electronically Signed By: Kenny Stern Jr., M.D. 05/23/2024 6:10:09 PM MARINE SUPERINTENDENT Electronically Signed By: Kenny Stern Jr., M.D. 05/23/2024 6:10:09 PM MARINE SUPERINTENDENT us Alberto Moffett MD CV CARDIAC SERVICES PRO CEDURES Final Result * ECG 12 lead (04/25/2024 11:28 AM MARINE SUPERINTENDENT) us Alberto Moffett MD ECG ORDERABLES Final R esult documented in this encounter Visit Diagnoses Diagnosis Paroxysmal SVT (supraventricular tachycardia)- Primary SVT (supraventricular tachycardia) Other specified cardiac dysrhythmias SVT (supraventricular tachycardia) Other specified cardiac dysrhythmias documented in this encounter Orders Outpatient Referral Count Last Ordered Date Fir st Ordered Date AMB REFERRAL TO CARDIAC ELECTROPHYSIOLOGY 1 04/25/2024 documented in this encounter Care Teams Oracle Ebs Consultant Relationship Specialty Start Date End Date Timothy Banks MD PCP - General 07/08/16 documented as of this encounter
--- OUTSIDE RECORDS SUMMARY | 2024-07-23 12:46 | XMS_ITS | Encounter Summary ---
Author Organization [facility] Address [address] [facility] [place] [address] Care Team Providers Care Research Geologist Name Role Phone Timothy Banks MD Primary Care Provider [phone] Cindy Garcia MD Unavailable Encounter Details Date Type Department Care Team (Late st Contact Info) Description 02/13/2024 Lab Requisition [facility] - Pathology Lab [address] [place] [address] Rommel Dinh MD [address] [facility] [address] [place] [address] Illness, unspecified Social History Tobacco Use Types Packs/Day Years Used Date Smoking Tobacco: Never Assessed Sex and Gender Information Value Date Recorded Sex Assigned at Male 03/05/2024 8:04 AM STORE HOST Legal Sex Male 6:32 PM STORE HOST Gender Identity Male 03/05/2024 8:04 AM STORE HOST Sexual Orientation Straight 03/05/2024 8: 04 AM STORE HOST documented as of this encounter Plan of Treatment Upcoming Encounters Date Type Department Care Team (Late st Contact Info) Description 07/26/2024 1:00 PM CDT Office Visit [facility] - Cardiology [address] [id number] [place] [address] Tracey Pond, AIRCRAFT MAGNETO MECHANIC-TENNIS BALL COVERER HAND [id number] [place] [address] 08/05/2024 8:30 AM CDT Appointment [facility] [address] [place] [address] Timothy Banks MD [address] [place] [address] 08/05/2024 9:00 AM CDT Office Visit [facility] - Hematology/Oncology [address] [place] [phone] Stephanie Connolly, AIRCRAFT MAGNETO MECHANIC-TENNIS BALL COVERER HAND [address] [place] [phone] 08/06/2024 9:00 AM CDT Appointment [facility] [address] [place] [address] Timothy Banks MD [address] [place] [address] 08/07/2024 8:30 AM CDT Appointment [facility] [address] [place] [address] Timothy Banks MD [address] [place] [address] 08/08/2024 9:00 AM CDT Appointment [facility] [address] [place] [address] Timothy Banks MD [address] [place] [address] 08/09/2024 9:00 AM CDT Appointment [facility] [address] [place] [address] Timothy Banks MD [address] [place] [address] documented as of this encounter Procedures Procedure Name Priority Date/Time Associated Diagnosis Comments BONE MARROW BIOPSY (STL) Routine 02/12/2024 9:20 AM STORE HOST Illness, unspecified documented in this encounter Results * BONE MARROW BIOPSY (STL) (02/12/2024 9:20 AM STORE HOST) Case Report Bone Marrow Patholog y Report Case: [id number] Authorizing Provider: Rommel Dinh Collected: 02/12/2024 09:20 AM MD Luke Ordering Location: [facility] - Received: 02/13/2024 12:34 PM Pathology Lab Pathologist: Daniela Bronson MD Specimens: A) - Bone Marrow Clot B) - Bone Marrow Core 02/14/2024 1:43 PM [facility] Final Diagnosis Bone marrow, iliac crest, core biopsy, clot section, and aspirate: - Increased myeloblasts (up to 30% by morphology) with mild trilineage dyspoiesis involving a hypercellular bone marrow (70-80% cellular), see comment - Absent iron stores - Patchy and mild increase in reticulin fibrosis (MF-1) 02/14/2024 1:43 PM [facility] PATH[facility] Comment The patient is a [...] PM [facility] Peripheral Smear Description The patient's [...] PM [facility] Bone Marrow Aspirate Differential count [...] PM [facility] Bone Marrow Core Biopsy and [...] PM [facility] Flow Cytometry Summary Flow cytometry identified 35% myeloblasts and no diagnostic immunophenotypic evidence of monoclonal B-cells, an aberrant T-cell population, or plasma cell neoplasm ([id number]). 02/14/2024 1:43 PM [facility] Clinical History Chronic leukopenia 02/14/2024 1:43 PM [facility] PATH[facility] Materials Received Received are 19 slide(s) and 3 blocks labeled [id number] along with a copy of the outside pathology report. [place] [address]. All original materials are returned to the referring institution, along with a copy of our final report. 02/14/2024 1:43 PM [facility] PATH[facility] Microscopic Description CD34 immunohistochemistry stains [...] PM [facility] Pathologist Location at [facility] 02/14/2024 1:43 PM [facility] Disclaimer The performance characteristics of all immunohistochemical and indirect immunofluorescence stains (if any) cited in this report were determined by the Histopathology Laboratory of [facility]. Some of these tests were [...] PM [facility] Embedded Images 02/14/2024 1:43 PM [facility] Pathology/Cytology BONE MARROW SPECIMEN / Unknown 02/12/2024 9:20 AM STORE HOST 02/13/2024 12:34 PM STORE HOST Miscellaneous samples (specimen) BONE MARROW SPECIMEN / Unknown 02/12/2024 9:20 AM STORE HOST 02/13/2024 12:34 PM STORE HOST Rommel Dinh MD LAB - PATHOLOGY/CYT OLOGY ORDERABLES Final Result Performing Organization Address City/State/[facility] Co de Phone Number [facility]Y LAB [id number] [phone] documented in this encounter Visit Diagnoses Diagnosis Illness, unspecified documented in this encounter Care Teams Research Geologist Relationship Specialty Start Date End Date Timothy Banks MD [address] [place] [address] PCP - General 10/19/18 Cindy Garcia MD [address] [place] [address] Capping Machine Operator/Oncologis t Hematology and Oncology 03/24/24 documented as of this encounter
--- OUTSIDE RECORDS SUMMARY | 2024-07-23 12:46 | XMS_ITS ---
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 MDS (myelodysplastic syndrome) 03/13/2024 Current Treatment and Therapy Plans AML (DECITABINE VENETOCLAX) Q28 DAYS* Plan Start Date:03/18/2024 Plan Provider:Cindy Garcia MD Linked Problems Acute myeloid leuk w multili n dysplasia, not achieve remis (HCC) Treatment Medications Current Day (Day 1 , Cycle 5 - Planned for 08/06/2024) Next Day (Day 2, Cycle 5 - Planned for 08/07/2024) decitabine (Dacogen) infusionvenetoclax (Venclexta) decitabine (Dacogen) 45 mg in NaCl IV 0.9 % 109 mL infusion decitabine (Dacogen) 45 mg in NaCl IV 0.9 % 109 mL infusion Past Treatment and Therapy Plans ONCOLOGY TREATMENT Plan Name Start Date Discontinue Date Treatment Medications Discontinue Reason Plan Provider Cycles AML (AZACIT IDINE VENETOC LAX) Q28 DAYS INTRA VENOUS* * 03/19/20 24 03/19/2024 azaCITIDine (Vidaza) Infusionvenetoclax (Venclexta) Physician Preference Cindy Garcia MD 1 of 6 cycles started
--- OUTSIDE RECORDS SUMMARY | 2024-07-23 12:46 | XMS_ITS | Clinical Summary ---
Author Organization [facility] Address [address] [place] [address] Care Team Providers Care Chair Name Role Phone Timothy Banks MD Primary Care Provider [phone] Cindy Garcia MD Unavailable Source Comments [facility],non-owned Affiliates and Associated Physician Practices is amultiple site organization consisting of ambulatory clinics and hospital sitesin [place], [place], [place] and [place]. This disclosure is being madepursuant to the Care Everywhere program and may not contain all information available regarding this patient. Last updated 17.[facility] Allergies Active Allergy Reactions Criticality Noted Date Comments Contrast-Gadolinium Agents For Mri Urticaria Medium 1 05/04/2023 Medications * Be aware that medications may not be up to date on this document. Alwaysverify current medications with the patient. lansoprazole (Prevacid) 30 MG capsule Take 1 (one) capsule by mouth daily before breakfast Active vitamin D3 (Cholecalcife rol) 10 MCG (400 UNIT) tablet Take 1 (one) capsule by mouth once daily Active folic acid 400 MCG tablet Take 1 (one) tablet by mouth once daily Active budesonide-fo rmoterol (Symbicort) 160-4.5 MCG/ACT inhaler Inhale 2 (two) puffs by mouth as needed (has not used in 3 weeks) Active dilTIAZem (Cardizem) 120 MG tablet Take 1 (one) tablet by mouth once daily Active acetaminophen (Tylenol) 325 MG tablet Take 2 (two) tablets by mouth every 4 hours as needed Maximum allowable Acetaminophen amount = 4 Grams (4000 mg) / 24 hours. 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) Take 1 (one) tablet by mouth 2 times daily as needed for Nausea/Vomiting Allow tablet to dissolve on the tongue 30 tablet 4 10:09 AM FOOD MANAGER 03/23/20 24 Active Additional Information Patient not taking.Reported on 04/01/2024 levoFLOXacin (Levaquin) 500 MG tablet Take 1 (one) tablet by mouth every 24 hours 30 tablet 3 04/18/19 25 Active apixaban (Eliquis) 2.5 MG tablet Take 1 (one) tablet by mouth 2 times daily 60 tablet 3 04/18/19 25 Active valACYclovir (Valtrex) 500 MG tabletIndicat ions:Acute myeloid leuk w multilin dysplasia, 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) Take 1 (one) tablet by mouth 2 times daily 60 tablet 5 05/16/19 25 Active posaconazole (Noxafil) 100 MG tabletIndicat ions: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) TAKE 3 TABLETS (300MG) BY MOUTH ONCE DAILY WITH DINNER 90 tablet 2 06/29/19 25 Active venetoclax (Venclexta) 100 MG tabletIndicat ions:Acute Myelocytic Leukemia Take 1 (one) tablet by mouth daily with food Reasons: Acute Myelocytic Leukemia 14 tablet 2 07/13/19 25 2024 Active FeroSul 325 (65 Fe) MG tabletIndicat ions:Acute myeloid leuk w multilin dysplasia, 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) TAKE 1 TABLET BY MOUTH EVERY 2 DAYS 30 tablet 07/17/19 25 Active senna (Senokot Extra Strength) 17.2 MG Take 17.2 mg by mouth once daily as needed for Constipation 03/23/20 24 2024 Discontinued(T x Complete) posaconazole (Noxafil) 100 MG tabletIndicat ions: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) Take 3 (three) tablets by mouth daily with dinner for 90 days 90 tablet 2 04/18/19 25 2024 Discontinued allopurinol (Zyloprim) 300 MG tablet Take 1 (one) tablet by mouth once daily after breakfast 30 tablet 04/22/19 25 2024 Discontinued(T x Complete) venetoclax (Venclexta) 100 MG tabletIndicat ions:Acute Myelocytic Leukemia Take 1 (one) tablet by mouth daily with food Reasons: Acute Myelocytic Leukemia 21 tablet 11 05/13/19 25 2024 Discontinued(R eorder) ferrous sulfate 325 (65 FE) MG tabletIndicat ions:Acute myeloid leuk w multilin dysplasia, 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) Take 1 (one) tablet by mouth every 2 days 30 tablet 05/16/19 25 2024 Discontinued Active Problems Problem Noted Date Diagnosed Date Acute myeloid leuk w multilin dysplasia, 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 MDS (myelodysplastic syndrome) 03/13/2024 Encounters Date Type Department Care Team Description 07/16/2024 Refill [facility] - Hematology/Oncology [address] [place] [phone] Stephanie Connolly APRN-GOLF MANAGER Refill Request 07/15/2024 9:16 AM CDT - 07/15/2024 11:59 PM CDT Hospital Encounter [facility] [address] [place] [phone] Cindy Garcia MD Discharge Disposition: Home or Self Care 07/15/2024 Travel 07/12/2024 9:00 AM CDT - 07/12/2024 11:59 PM T Hospital Encounter [facility] [address] [place] [phone] Timothy Banks MD Discharge Disposition: Home or Self Care 07/12/2024 Orders Only [facility] AC[facility] [address] [place] [address] Cindy Garcia MD 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); SVT (supraventricular tachycardia) (HCC); Chronic kidney disease, unspecified CKD stage 07/09/2024 9:00 AM CDT - 07/09/2024 11:59 PM CDT Hospital Encounter [facility] [address] [place] [phone] Timothy Banks, Discharge Disposition: Home or Self Care 07/09/2024 Travel 07/04/2024 8:30 AM CDT - 07/04/2024 11:59 PM CDT Hospital Encounter [facility] [address] [place] [phone] Cindy Garcia MD Kobayashi, Laura, APRN-CNP Discharge Disposition: Home or Self Care 07/04/2024 Travel 07/02/2024 Telephone [facility] [address] [place] [phone] Lauren Little 07/02/2024 Orders Only [facility] - Hematology/Oncology [address] [place] [phone] Nikole Chou c4 planner myeloid leukemia in adult 07/01/2024 9:40 AM CDT Office Visit [facility] - Hematology/Oncology [address] [place] [phone] Mohsen, Stephanie, MECHANIC'S ASSISTANT-GOLF MANAGER 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 (Primary Dx); Neutropenia, unspecified type 07/01/2024 8:39 AM CDT - 07/01/2024 11:59 PM CDT Hospital Encounter [facility] [address] [place] [phone] Timothy Banks, Discharge Disposition: Home or Self Care 07/01/2024 Orders Only [facility] - Hematology/Oncology [address] [place] [phone] Nikole Chou RN 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 06/24/2024 9:40 AM CDT Office Visit [facility] - Hematology/Oncology [address] [place] [phone] Stephanie Connolly APRN-FAISAL 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 (Primary Dx); Neutropenia, unspecified type 06/24/2024 9:00 AM CDT - 06/24/2024 11:59 PM CDT Hospital Encounter [address] [phone] Timothy Banks, Discharge Disposition: Home or Self Care 06/24/2024 Travel 06/18/2024 Refill [facility] - Hematology/Oncology [address] [place] [phone] Cindy Garcia MD Refill Request 06/17/2024 9:40 AM CDT Office Visit [facility] - Hematology/Oncology [address] [place] [phone] Stephanie Connolly APRN-GOLF MANAGER Acute myeloid leuk w multilin dysplasia, 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); Neutropenia, unspecified type 06/17/2024 9:07 AM CDT - 06/17/2024 11:59 PM CDT Hospital Encounter [facility] [address] [place] [phone] Timothy Banks, Discharge Disposition: Home or Self Care 06/17/2024 Travel 05/30/2024 11:00 AM FOOD MANAGER Office Visit [facility] - Hematology/Oncology [address] [place] [phone] Cindy Garcia MD 05/30/2024 10:20 AM FOOD MANAGER - 05/30/2024 11:59 PM FOOD MANAGER Hospital Encounter [facility] [address] [place] [phone] Cindy Garcia MD Discharge Disposition: Home or Self Care 05/30/2024 Travel 05/28/2024 Orders Only [facility] - Hematology/Oncology [address] [place] [phone] Nikole Chou RN Acute myeloid leuk w multilin dysplasia, 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 05/22/2024 8:40 AM FOOD MANAGER - 05/22/2024 11:59 PM FOOD MANAGER Hospital Encounter [facility] [address] [place] [phone] Timothy Banks MD Discharge Disposition: Home or Self Care 05/22/2024 Travel 05/21/2024 9:00 AM FOOD MANAGER - 05/21/2024 11:59 PM FOOD MANAGER Hospital Encounter [facility] [address] [place] [phone] Timothy Banks MD Discharge Disposition: Home or Self Care 05/20/2024 9:30 AM FOOD MANAGER - 05/20/2024 11:59 PM FOOD MANAGER Hospital Encounter [facility] [address] [place] [phone] Cindy Garcia MD Discharge Disposition: Home or Self Care 05/20/2024 Travel 05/17/2024 8:58 AM FOOD MANAGER - 05/17/2024 11:59 PM FOOD MANAGER Hospital Encounter [facility] [address] [place] [phone] Cindy Garcia MD Discharge Disposition: Home or Self Care 05/16/2024 9:40 AM FOOD MANAGER Office Visit [facility] - Hematology/Oncology [address] [place] [phone] Stephanie Connolly APRN-GOLF MANAGER Acute myeloid leuk w multilin dysplasia, 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); Chronic kidney disease, unspecified CKD stage; Neutropenia, unspecified type 05/16/2024 8:49 AM FOOD MANAGER - 05/16/2024 11:59 PM FOOD MANAGER Hospital Encounter [facility] [address] [place] [phone] Cindy Garcia MD Discharge Disposition: Home or Self Care 05/16/2024 Telephone [facility] - Hematology/Oncology [address] [place] [phone] Stephanie Connolly APRN-CNP Follow-up (Error/) 05/16/2024 Travel 05/15/2024 12:32 PM FOOD MANAGER - 05/15/2024 11:59 PM FOOD MANAGER Hospital Encounter [facility] [address] [place] [phone] Cindy Garcia MD Kunkle, Kelly, APRN-CNP Discharge Disposition: Home or Self Care 05/15/2024 Travel 05/13/2024 Refill [facility] - Hematology/Oncology [address] [place] [phone] Cindy Garcia MD MEDICATION REFILL 05/02/2024 1:30 PM FOOD MANAGER Video Visit [facility] - Hematology/Oncology [address] [place] [phone] Cindy Garcia MD 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 05/01/2024 Orders Only [facility] - Hematology/Oncology [address] [place] [phone] Cindy Garcia MD 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 from Last 3 Months Social History Tobacco [...] and heating? Not hard at all 03/13/2024 [facility] - Occupational Stress [...] any time in the past 12 m [facility], were you homeless or living in a senior care (including now)? No 03/13/2024 Sex and Gender Information Value Date Recorded Sex Assigned at Male 03/05/2024 8:04 AM FOOD MANAGER Legal Sex Male 6:32 PM FOOD MANAGER Gender Identity Male 03/05/2024 8:04 AM FOOD MANAGER Sexual Orientation Straight 03/05/2024 8: 04 AM FOOD MANAGER Last Filed Vital Signs Vital Sign Reading Time Taken Comments Blood Pressure 146/92 07/15/2024 7:00 AM CDT Pulse 95 07/15/2024 7:00 AM CDT Temperature 36.5 C (97.7 F) 07/15/2024 7:00 AM CDT Respiratory Rate 20 07/15/2024 7:00 AM CDT Oxygen Saturation 98% 07/15/2024 7:00 AM CDT Inhaled Oxygen Concentration - - Weight 90.7 kg (200 lb) 07/15/2024 7:00 AM CDT Height 182.9 cm (6') 07/04/2024 8:33 AM CDT Body Mass Index 27.12 07/04/2024 8:33 AM CDT Plan of Treatment Upcoming Encounters Date Type Department Care Team (Late st Contact Info) Description 07/26/2024 1:00 PM CDT Office Visit [facility] - Cardiology [address], [address] [phone] Tracey Pond MECHANIC'S ASSISTANT-GOLF MANAGER [address] [phone] 08/05/2024 8:30 AM CDT Appointment [facility] [address] [place] [phone] Timothy Banks MD [address] [place] [address] 08/05/2024 9:00 AM CDT Office Visit [facility] - Hematology/Oncology [address] [place] [phone] Stephanie Connolly APR[address] [phone] 08/06/2024 9:00 AM CDT Appointment [facility] [address] [place] [phone] Timothy Banks MD [address] [place] [address] 08/07/2024 8:30 AM CDT Appointment [facility] [address] [place] [phone] Timothy Banks MD [address] [place] [address] 08/08/2024 9:00 AM CDT Appointment [facility] [address] [place] [address] [address] [place] [address] 08/09/2024 9:00 AM CDT Appointment [facility] [address] [place] [phone] Timothy Banks [place] [address] Health Maintenance Due Date Last Done Comments [...] this topic Medical Devices Implanted Type Area Engineering Aid Device Identifier Shelf Expiration Date Model / Serial / Lot Port Implinfn Powerport Clrvu Argd Kandy Implanted:Qty : 1 on 04/11/2024 by Davian Marshall MD at [facility] Catheters Right: Chest Wall [employer] [id number] 02/07/2025 [id number] / / [id number] Procedures Procedure Name Priority Date/Time Associated Diagnosis Comments COMPREHENSIVE METABOLIC PANEL Routine 07/15/2024 9:45 AM CDT Acute myeloid leuk w multilin dysplasia, 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) CBC W AUTO DIFFERENTIAL Routine 07/15/2024 9:45 AM CDT Acute myeloid leuk w multilin dysplasia, 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) COMPREHENSIVE METABOLIC PANEL Routine 07/12/2024 9:09 AM CDT Acute myeloid leuk w multilin dysplasia, 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) CBC W AUTO DIFFERENTIAL Routine 07/12/2024 9:09 AM CDT Acute myeloid leuk w multilin dysplasia, 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) COMPREHENSIVE METABOLIC PANEL Routine 07/09/2024 9:56 AM CDT Acute myeloid leuk w multilin dysplasia, 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) CBC W AUTO DIFFERENTIAL Routine 07/09/2024 9:56 AM CDT Acute myeloid leuk w multilin dysplasia, 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) FLOW CYTOMETRY BONE MARROW Routine 07/04/2024 10:40 AM CDT Acute myeloid leuk w multilin dysplasia, 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) CHROMOSOME ANALYSIS BONE MARROW PANEL Routine 07/04/2024 10:40 AM CDT Acute myeloid leuk w multilin dysplasia, 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 BONE MARROW BIOPSY (STL) Routine 07/04/2024 10:40 AM CDT 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 LAB MISC TEST (NOT BLOOD) Routine 07/04/2024 10:40 AM CDT Acute myeloid leuk w multilin dysplasia, 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) LAB MISC TEST (NOT BLOOD) Routine 07/04/2024 10:40 AM CDT Acute myeloid leuk w multilin dysplasia, 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 DIFFERENTIAL MANUAL Routine 07/04/2024 8 :52 AM CDT Acute myeloid leuk w multilin dysplasia, 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 CBC W AUTO DIFFERENTIAL Routine 07/04/2024 8:52 AM CDT Acute myeloid leuk w multilin dysplasia, 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 DIFFERENTIAL MANUAL Routine 07/01/2024 9 :01 AM CDT Acute myeloid leuk w multilin dysplasia, 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 COMPREHENSIVE METABOLIC PANEL Routine 07/01/2024 9:01 AM CDT Acute myeloid leuk w multilin dysplasia, 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 CBC W AUTO DIFFERENTIAL Routine 07/01/2024 9:01 AM CDT Acute myeloid leuk w multilin dysplasia, 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 DIFFERENTIAL MANUAL Routine 06/24/2024 1 0:34 AM CDT Acute myeloid leuk w multilin dysplasia, 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 COMPREHENSIVE METABOLIC PANEL Routine 06/24/2024 10:34 AM CDT Acute myeloid leuk w multilin dysplasia, 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 CBC W AUTO DIFFERENTIAL Routine 06/24/2024 10:34 AM CDT Acute myeloid leuk w multilin dysplasia, 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 DIFFERENTIAL MANUAL Routine 06/17/2024 9 :36 AM CDT Acute myeloid leuk w multilin dysplasia, 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 COMPREHENSIVE METABOLIC PANEL Routine 06/17/2024 9:36 AM CDT Acute myeloid leuk w multilin dysplasia, 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 CBC W AUTO DIFFERENTIAL Routine 06/17/2024 9:36 AM CDT Acute myeloid leuk w multilin dysplasia, 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 COMPREHENSIVE METABOLIC PANEL Routine 05/30/2024 11:05 AM FOOD MANAGER Acute myeloid leuk w multilin dysplasia, 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 CBC W AUTO DIFFERENTIAL Routine 05/30/2024 11:05 AM FOOD MANAGER Acute myeloid leuk w multilin dysplasia, 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 DIFFERENTIAL MANUAL Routine 05/20/2024 9 :42 AM FOOD MANAGER Acute myeloid leuk w multilin dysplasia, 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 COMPREHENSIVE METABOLIC PANEL Routine 05/20/2024 9:42 AM FOOD MANAGER Acute myeloid leuk w multilin dysplasia, 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 CBC W AUTO DIFFERENTIAL Routine 05/20/2024 9:42 AM FOOD MANAGER Acute myeloid leuk w multilin dysplasia, 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 DIFFERENTIAL MANUAL Routine 05/16/2024 9 :03 AM FOOD MANAGER Acute myeloid leuk w multilin dysplasia, 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 COMPREHENSIVE METABOLIC PANEL Routine 05/16/2024 9:03 AM FOOD MANAGER Acute myeloid leuk w multilin dysplasia, 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 CBC W AUTO DIFFERENTIAL Routine 05/16/2024 9:03 AM FOOD MANAGER Acute myeloid leuk w multilin dysplasia, 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 CHROMOSOME ANALYSIS BONE MARROW PANEL Routine 05/15/2024 1:35 PM FOOD MANAGER Acute myeloid leuk w multilin dysplasia, 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 MDS (myelodysplastic syndrome) FLOW CYTOMETRY BONE MARROW Routine 05/15/2024 1:35 PM FOOD MANAGER Acute myeloid leuk w multilin dysplasia, 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 MDS (myelodysplastic syndrome) BONE MARROW BIOPSY (STL) Routine 05/15/2024 1:35 PM FOOD MANAGER Acute myeloid leuk w multilin dysplasia, 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 MDS (myelodysplastic syndrome) LAB MISC TEST (NOT BLOOD) Routine 05/15/2024 1:35 PM FOOD MANAGER Acute myeloid leuk w multilin dysplasia, 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 MDS (myelodysplastic syndrome) LAB MISC TEST (NOT BLOOD) Routine 05/15/2024 1:35 PM FOOD MANAGER Acute myeloid leuk w multilin dysplasia, 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 WBC 2.0(L) 4.0 - 10.7 x10E9/L 07/15/2024 11:00 AM [facility] RBC Count 4.08(L) 4.30 - 5.80 x10E12/L 07/15/2024 11:00 AM [facility] Hemoglobin 12.4(L) 13.3 - 17.5 g/dL 07/15/2024 11:00 AM [facility] Hematocrit 36.8(L) 38.7 - 51.1 % 07/15/2024 11:00 AM [facility] MCV 90.2 80.0 - 98.0 fL 07/15/2024 11:00 AM [facility] MCH 30.4 26.7 - 33.6 pg 07/15/2024 11:00 AM [facility] MCHC 33.7 31.7 - 36.3 g/dL 07/15/2024 11:00 AM [facility] RDW-CV 19.8(H) 11.3 - 14.8 % 07/15/2024 11:00 AM [facility] Platelet Count 73(L) 150 - 420 x10E9/L 07/15/2024 11:00 AM [facility] Preliminary Absolute Neutrophil 1.08(L) 1.60 - 7.50 x10E9/L 07/15/2024 11:00 AM [facility] Comment:Preliminary ANC pend ing manual confirmation Neutrophil % 54.9 41.0 - 74.0 % 07/15/2024 11:00 AM [facility] Lymphocyte % 21.8 17.0 - 47.0 % 07/15/2024 11:00 AM [facility] Monocyte % 22.3(H) 3.0 - 11.0 % 07/15/2024 11:00 AM [facility] Eosinophil % 0.5 0.0 - 7.0 % 07/15/2024 11:00 AM [facility] Basophil % 0.0 0.0 - 1.6 % 07/15/2024 11:00 AM [facility] Immature Granulocytes % 0.5 0.0 - 1.0 % 07/15/2024 11:00 AM [facility] Neutrophil Absolute 1.08(L) 1.60 - 7.50 x10E9/L 07/15/2024 11:00 AM [facility] Lymphocyte Absolute 0.43(L) 1.00 - 4.40 x10E9/L 07/15/2024 11:00 AM [facility] Monocyte Absolute 0.44 0.15 - 1.00 x10E9/L 07/15/2024 11:00 AM [facility] Eosinophil Absolute 0.01 0.00 - 0.60 x10E9/L 07/15/2024 11:00 AM [facility] Basophil Absolute 0.00 0.00 - 0.13 x10E9/L 07/15/2024 11:00 AM [facility] Blood BLOOD SPECIMEN / Unknown Venipuncture / Unknown 07/15/2024 9:45 AM T 07/15/2024 10:05 AM [facility] [place] Cindy Garcia MD LAB - HEMATOLOGY ORDERABLES Jamila stern Result [facility] [address] [place] [address], [facility] [phone] * (ABNORMAL) COMPREHENSIVE METABOLIC PANEL (07/15/2024 9:45 AM [facility] [place] Only the most recent of9 resultswithin the time period is included. BUN 15 7 - 26 mg/dL 07/15/2024 11:29 AM [facility] Creatinine 1.14 0.71 - 1.16 mg/dL 07/15/2024 11:29 AM [facility] Sodium 142 136 - 145 mmol/L 07/15/2024 11:29 AM [facility] Potassium 3.6 3.5 - 4.5 mmol/L 07/15/2024 11:29 AM [facility] Chloride 107 98 - 107 mmol/L 07/15/2024 11:29 AM [facility] CO2 26 22 - 29 mmol/L 07/15/2024 11:29 AM [facility] Glucose 88 70 - 99 mg/dL 07/15/2024 11:29 AM [facility] Calcium 9.1 8.4 - 10.2 mg/dL 07/15/2024 11:29 AM [facility] Protein Total 6.4 6.0 - 8.3 g/dL 07/15/2024 11:29 AM [facility] Albumin 3.9 3.4 - 5.0 g/dL 07/15/2024 11:29 AM [facility] Bilirubin Total 1.5(H) 0.2 - 1.2 mg/dL 07/15/2024 11:29 AM [facility] Alkaline Phosphatase 128 40 - 150 U/L 07/15/2024 11:29 AM [facility] ALT 14 5 - 55 U/L 07/15/2024 11:29 AM [facility] AST 12 5 - 34 U/L 07/15/2024 11:29 AM [facility] Anion Gap 9 6 - 16 07/15/2024 11:29 AM [facility] BUN/Creatinine Ratio 13 7 - 23 07/15/2024 11:29 AM [facility] Osmolality Calculated 294 275 - 295 mOsm/kg 07/15/2024 11:29 AM [facility] Albumin/Globulin Ratio 1.6 1.1 - 2.3 07/15/2024 11:29 AM T [facility] eGFR by CKD-EPI 65(L) >=90 mL/min/1.7 3 m2 07/15/2024 11:29 AM CDT [facility] Blood BLOOD SPECIMEN / Unknown Venipuncture / Unknown 07/15/2024 9:45 AM CDT 07/15/2024 10:55 AM CDT us Cindy Garcia MD LAB - CHEMISTRY ORDERABLES Final Result [address] [address], [facility] [phone] * FLOW CYTOMETRY BONE MARROW (07/04/2024 10:40 AM CDT) Only the most recent of2 resultswithin the time period is included. Case Report Flow Cytometry Case: [id number] Authorizing Provider: Eve Goyal APRN-CNP Collected: 07/04/2024 10:40 AM Ordering Location: [facility] Received: 07/04/2024 10:43 AM Pathologist: Guillermo Brown MD Specimen: Bone Marrow 07/09/2024 10:34 AM [facility] Addendum 1 Minimal residual disease flow cytometry performed at [facility] is negative for an abnormal myeloid progenitor population. 07/09/2024 10:34 AM [facility] Addendum electronically signed by Guillermo Brown MD on 07/09/2024 at 10:34 AM Final Diagnosis Bone marrow, flow cytometry: - No significant B-cell or blast population detected 07/09/2024 10:34 AM [facility] PATHOLOGY LAB Flow Cytometry Interpretation Viability: 91% B-cells: no significant population T-cells: not increased Blasts: not increased, <1% of overall cellularity MRD sent: Yes A bone marrow aspirate smear prepared from the flow cytometry specimen has been reviewed for quality control associate purposes. 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 A-2 Flow CD10 A-3 Flow CD13 A-5 Flow CD20 A-11 Flow CD2 A-13 Flow CD14 A-16 Flow CD117 A-17 Flow CD11b A-18 Flow CD11c A-1 Flow CD5 A-4 Flow CD19 A-6 Flow CD33 A-7 Flow CD34 A-8 Flow CD45 A-12 Flow CD7 A-14 Flow CD56 A-15 Flow CD64 A-9 [place]+CD19+ A-10 Lambda+CD19+ A-19 Flow HLA-DR 07/09/2024 10:34 AM [facility] PATHOLOGY LAB Pathologist Location at [facility] 07/09/2024 10:34 AM [facility] PATHOLOGY LAB Disclaimer Test performed at [facility], [address] [place] [address], [address]. *The established laboratory minimum viability is 70%. [...] qualified to perform high complexity clinical testing. 07/09/2024 10:34 AM [facility] PATHOLOGY LAB Embedded Images 10:34 AM [facility] PATHOLOGY LAB Pathology/Cytolo gy BONE MARROW SPECIMEN / Unknown Collection / Unknown 07/04/2024 10:40 AM CDT 07/04/2024 10:43 AM CDT Eve Jay Jay HOWARD-GOLF MANAGER LAB - PATHOLOGY/CYTOLOG Y ORDERABLES Edited Result - Final [facility] PATHOLOGY LAB [address] [place] [address], [facility] [phone] * BONE MARROW BIOPSY (STL) (07/04/2024 10:40 AM CDT) Only the most recent of2 resultswithin the time period is included. Case Report Bone Marrow Patholog y Report Case: [id number] Authorizing Provider: Cindy Garcia MD Collected: 07/04/2024 10:40 AM Ordering Location: [facility] - Received: 07/04/2024 10:43 AM Hematology/Oncology Pathologist: Guillermo Brown MD Specimens: A) - Bone Marrow B) - Bone Marrow Core C) - Bone Marrow Aspirate D) - Blood Peripheral 07/05/2024 3:56 PM CDT [facility] PATHOLOGY LAB Final Diagnosis Bone marrow, aspirate, clot section, and core biopsy: - Normocellular marrow with maturing trilineage hematopoiesis. - No acute leukemia seen. - See description. Peripheral blood smear: - Bicytopenia. - See description. 07/05/2024 3:56 PM CDT [facility] PATHOLOGY LAB Comment Immunohistochemistry is performed to assess staining cells in an architectural context: CD34 and CD117 are negative for increased blasts (<2% of marrow cellularity for both markers). 07/05/2024 3:56 PM CDT [facility] PATHOLOGY LAB Peripheral Smear Description RBC: normocytic anemia. WBC: leukopenia with absolute neutropenia and lymphopenia. Platelets: normal in number and morphology. 07/05/2024 3:56 PM CDT [facility] PATHOLOGY LAB Bone Marrow Aspirate Differential count (200 cells): 0% blasts, 47% maturing myeloid precursors, 20% erythroid progenitors, 20% monocytes, 0% eosinophils, 12% lymphocytes, 1% plasma cells. Specimen quality: adequate. Spicules: numerous. Trilineage Hematopoiesis: present. Myeloid:Erythroid ratio: normal. Myeloid Maturation: normal. Erythroid Maturation: normal. Megakaryocyte morphology: normal size. Storage iron (by special stain): decreased. Sideroblastic iron (by special stain): no ring sideroblasts. 07/05/2024 3:56 PM [facility] PATHOLOGY LAB Bone Marrow Core Biopsy and Clot Section Description Specimen quality: adequate with 1.3 cm of evaluable marrow. Cellularity: 50% Trilineage Hematopoiesis: present. Myeloid to Erythroid ratio: normal. Myeloid maturation and localization: normal. Erythroid maturation and localization: normal. Megakaryocyte number: normal. Megakaryocyte distribution: normal. Lymphoid aggregates: absent. Bone trabeculae: thin. Plasma cells: normal. Clot section marrow particles: absent. Clot section morphology: peripheral blood only. 07/05/2024 3:56 PM [facility] PATHOLOGY LAB Flow Cytometry Summary Bone marrow, flow cytometry ([id number]): - No significant B-cell or blast population detected 07/05/2024 3:56 PM [facility] PATHOLOGY LAB Clinical History AML 07/05/2024 3:56 PM [facility] PATHOLOGY LAB Gross Description The requisition and specimen(s) are identified with the patient's name, Nadeem Kern. Received fresh, specimen A, clot is 1.5 cc of bright red to red-brown partially clotted and fluid-like blood. The specimen is placed in a biopsy bag and entirely submitted in cassette A1. Received in formalin, specimen B, core 2.0 x 0.2 cm diameter pink-red bony core and a 0.6 x 0.2 cm red-brown clot. The specimen is entirely submitted in cassette B1 following a 1 hour decalicifcation in [employer]. TENISHA 07/05/2024 3:56 PM [facility] PATHOLOGY LAB Pathologist Location at [facility] 07/05/2024 3:56 PM [facility] PATHOLOGY LAB Disclaimer The performance characteristics [...] and interpreted by the attending (teaching) pathologist. 07/05/2024 3:56 PM CDT [facility] PATHOLOGY LAB Embedded Images 07/05/2024 3:56 PM CDT [facility] PATHOLOGY LAB Pathology/Cytology PERIPHERAL BLOOD / Unknown Collection / Unknown 07/04/2024 10:40 AM CDT 07/04/2024 10:43 AM CDT Miscellaneous samples (specimen) BONE MARROW SPECIMEN / Unknown 07/04/2024 10:40 AM CDT 07/04/2024 2:04 PM CDT Miscellaneous samples (specimen) SPECIMEN FROM BONE MARROW OBTAINED BY ASPIRATION / Unknown 07/04/2024 10:40 AM CDT 07/04/2024 2:04 PM CDT Miscellaneous samples (specimen) PERIPHERAL BLOOD / Unknown 07/04/2024 10:40 AM CDT 07/04/2024 2:04 PM CDT us Cindy Garcia MD LAB - PATHOLOGY/CYTOLOGY ORDERAB LES Final Result [facility] PATHOLOGY LAB [address] [phone] * LAB MISC TEST (NOT BLOOD) (07/04/2024 10:40 AM CDT) Only the most recent of4 resultswithin the time period is included. Pathologist [facility] Test Name AML Panel + CEP8 + [id number] 07/13/2024 6:39 AM CDT [facility] REF LAB NON INTERF Test Result See Scanned Report 07/13/2024 6:39 AM CDT [facility] REF LAB NON INTERF Comment Ref Lab [facility] 07/13/2024 6:39 AM CDT [facility] REF LAB NON INTERF Other BONE MARROW SPECIMEN / Unknown Collection / Unknown 07/04/2024 10:40 AM CDT 07/04/2024 11:06 AM CDT Eve Goyal MECHANIC'S ASSISTANT-GOLF MANAGER LAB - BODY FLUID ORDERA BLES Final Result [facility] REF LAB NON INTERF [address] [place] [address], [facility] [phone] * CHROMOSOME ANALYSIS BONE MARROW PANEL (07/04/2024 10:40 AM CDT) Only the most recent of2 resultswithin the time period is included. 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 This suboptimal mitotic yield may have prohibited the detection of a clonal population. This analysis showed a normal result. There were no abnormal clones detected within the limits of the technology utilized in this study. This result has been reviewed and approved by Nabila Gonzalez, PhD, [facility] This result has been reviewed and approved by Emily Street MD A portion of this analysis was performed at the following location(s): [facility] CG[facility]2 [facility]4 INTERPRETIVE INFORMATION: Chromosome Analysis, Bone Marrow This test was developed and its performance characteristics determined by [facility]. It has not been cleared or approved by the [place] Food and Drug Administration. This test was performed in a CLIA certified laboratory and is intended for clinical purposes. [facility] Chromosome Analysis Bone Marrow See Note 07/13/2024 10:09 AM CDT [facility] ([facility]) Comment: Authorized individuals can access the [employer] Enhanced Report with an [employer] Connect account using the following link. Your local lab can assist you in obtaining the patient report if you don't have a Connect account. [email or web address] Performed By: [facility] [address] [place] [address] Folder Taper Operator: Uche Morley MD, PhD CLIA Number: [id number] Bone marrow BONE MARROW SPECIMEN / Unknown 07/04/2024 10:40 AM CDT 07/04/2024 10:43 AM CDT Eve Goyal APRN-GOLF MANAGER LAB - PATHOLOGY/CYTOLOG Y ORDERABLES Final Result [facility] ([facility]) [address] [place] [address], [facility] * (ABNORMAL) DIFFERENTIAL MANUAL (07/04/2024 8:52 AM CDT) Only the most recent of7 resultswithin the time period is included. Neutrophil % 34(L) 41 - 74 % 07/04/2024 10:12 AM CDT [facility] Lymphocyte % 40 17 - 47 % 07/04/2024 10:12 AM CDT [facility] Monocyte % 22(H) 3 - 11 % 07/04/2024 10:12 AM CDT [facility] Eosinophil % 1 0 - 7 % 07/04/2024 10:12 AM CDT [facility] Basophil % 2 0 - 2 % 07/04/2024 10:12 AM T [facility] Metamyelocyte % 1(H) 0% % 10:12 AM CDT [facility] Neutrophil Absolute 0.65(L) 1.60 - 7.50 x10E9/L 07/04/2024 10:12 AM [facility] Lymphocyte Absolute 0.76(L) 1.00 - 4.40 x10E9/L 07/04/2024 10:12 AM T [facility] Monocyte Absolute 0.42 0.15 - 1.00 x10E9/L 07/04/2024 10:12 AM [facility] Eosinophil Absolute 0.02 0.00 - 0.60 x10E9/L 07/04/2024 10:12 AM T [facility] Basophil Absolute 0.04 0.00 - 0.13 x10E9/L 07/04/2024 10:12 AM [facility] RBC Morphology REVIEWED 07/04/2024 10:12 AM [facility] Schistocytes MODERATE(A) (none) 07/04/2024 10:12 AM [facility] Blood BLOOD SPECIMEN / Unknown Port / Unknown 07/04/2024 8:52 AM CDT 07/04/2024 9:00 AM CDT Cindy Garcia MD LAB - HEMATOLOGY ORDERABLES Jamila stern Result [facility] [address] [place] [address], [facility] [phone] from Last 3 Months Insurance [address] [id number] MANAGED MEDICARE ADV AETNA MEDICARE ADV Advance Directives * Full Code (Latest Code Status on File) Date Activated Date Inactivated Comments 03/13/2024 9:41 PM 03/23/2024 2:56 PM Care Teams Chair Relationship Specialty Start Date End Date Timothy Banks MD [address] [place] [address] PCP - General 10/19/18 Cindy Garcia MD [address] [place] [address] Fender Mechanic/Oncologis t Hematology and Oncology 03/24/24
--- OUTSIDE RECORDS SUMMARY | 2024-07-23 12:47 | XMS_ITS | Clinical Summary ---
Author Organization [facility] Address [address] [place] [address] Phone Care Team Providers Care Operating Manager Name Role Phone Timothy Banks MD Primary Care Provider [phone] Allergies No known active allergies Medications Cholecalciferol (VITAMIN D3) 1000 units capsule 1 capsule (1,000 units) orally daily 0 7 Active albuterol HFA (PROAIR HFA) 108 (90 Base) MCG/ACT inhaler 2 q4=6 prn 0 7 Active budesonide-form oterol (SYMBICORT) 160-4.5 MCG/ACT inhaler 2 bid 0 7 Active apixaban (ELIQUIS) 5 MG tablet 1 bid 0 8 Active folic acid (FOLVITE) 800 MCG tablet 1 daily 0 8 Active multivitamin (THERAGRAN) tablet 7 Active polyethylene glycol-electrol ytes (NULYTELY) 420 g solution MIX AND DRINK UTD BY THE DOCTOR 0 9 Active furosemide (LASIX) 20 MG tablet Take 20 mg by mouth 9 Active LUMIGAN 0.01 % ophthalmic drops Administer 1 drop into both eyes every night 0 9 Active hydrocortisone 2.5 % ointment 1 Active Active Problems Problem Noted Date Diagnosed [...] vein 03/31/2016 Overview (11/10/2018): Venous thromboembolism Immunizations Immunization Administration Dates Next Due Influenza Recombinant Mary [...] Assigned at Male 11/09/2019 9:17 AM MDT Legal Sex Male 9:10 AM [facility] Gender Identity Male 11/09/2019 9:17 AM MDT [...] Due Date Last Done Comments COVID-19 Vaccine (2023-2 5 season) 2023 04/14/2021 Influenza Vaccine (Season Ended) 2024 12/09/2020, 01/09/2020, 01/25/2019, Additional history exists Pneumococcal PPSV23/PCV13 65 + Years / Low and Medium Risk Completed 09/17/2018, 08/27/2015 Insurance [employer] MEDICARE Care Teams Operating Manager Relationship Specialty Start Date End Date Timothy Banks MD [address] [place] [id number] PCP - General Family Medicine 11/14/18
--- OUTSIDE RECORDS SUMMARY | 2024-07-23 12:47 | XMS_ITS | Encounter Summary ---
Author Organization [facility] [email or web address] [facility] Address [address] [place] [address] Care Team Providers Care Fabric Finisher Name Role Phone Timothy Banks MD Primary Care Provider [phone] Encounter Details Date Type Department Care Team (Late st Contact Info) Description 07/23/2024 Orders Only [facility] Oncology and Hematology - [place] [address] [place] [address] [address] [place] [address] Frank Singh MD [address] [facility] [address] [place] [address] 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) Social History Tobacco Use Types Packs/Day Years Used Date Smoking Tobacco: Never Smokeless Tobacco: Never Alcohol Use Standard Drinks/Week Comments Yes 0 (1 standard drink = 0.6 oz pur e alcohol) Very Ocasionally Sex and Gender Information Value Date Recorded Sex Assigned at Male 04/05/2024 3:07 PM [employer] SWITCHBOARD OPERATOR Legal Sex Male 10:53 AM CDT Gender Identity Male 04/05/2024 3:07 PM [employer] SWITCHBOARD OPERATOR Sexual Orientation Not on file documented as of this encounter Plan of Treatment Not on file documented as of this encounter Visit Diagnoses Diagnosis 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) documented in this encounter Care Teams Fabric Finisher Relationship Specialty Start Date End Date Timothy Banks MD [address] [place] [address] PCP - General Family Practice 02/01/24 documented as of this encounter
--- OUTSIDE RECORDS SUMMARY | 2024-07-23 12:47 | XMS_ITS | Clinical Summary ---
Author Organization [facility] Meka Hayes Address [address] [place] [address] Care Team Providers Care Veterinary Attendant Name Role Phone Timothy Banks MD Primary Care Provider [phone] Allergies Active Allergy Reactions Criticality Noted Date [...] Encounters Date Type Department Care Team Description 07/23/2024 Orders Only [facility] Oncology and Hematology - [place] Ashlyn [address]z [address] [place] [address] Frank Singh MD 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) 07/22/2024 Orders Only [facility] Oncology and Hematology - [place] Ashlyn Dietz [address] [place] [address] Frank Singh MD 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) 07/16/2024 Orders Only [facility] Oncology and Hematology - [place] Cindy Dietz [address] [place] [address] Frank Singh MD 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) 07/15/2024 Orders Only [facility] Oncology and Hematology - [place] Cindy Dietz [address] Frank Singh MD 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) 07/09/2024 Orders Only [facility] Oncology and Hematology - [place] Cindy Dietz [address] [place] [id number] Frank Singh MD 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) 07/08/2024 Orders Only [facility] Oncology and Hematology [facility] Cindy Dietz [address] Frank Singh MD 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) 07/02/2024 Orders Only [facility] Oncology and Hematology [facility] Cindy Dietz [address] Frank Singh MD 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) 07/01/2024 Orders Only [facility] Oncology and Hematology [facility] Cindy Dietz [address] [place] [id number] Frank Singh MD 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) 06/26/2024 External Device Data STL ABSTRACTION Provider, Abstract 06/25/2024 Orders Only [facility] Oncology and Hematology - [place] Cindy Dietz [address] Frank Singh MD 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) 06/24/2024 Orders Only [facility] Oncology and Hematology [facility] Cindy Dietz [address] Frank Singh MD 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) 06/18/2024 Orders Only [facility] Oncology and Hematology - [place] Cindy Dietz [address] Frank Singh MD 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) 06/17/2024 Orders Only [facility] Oncology and Hematology - Charles [address] Frank Singh MD 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) 06/15/2024 External Device Data STL ABSTRACTION Provider, Abstract 06/14/2024 External Device Data STL ABSTRACTION Provider, Abstract 06/11/2024 Orders Only [facility] Oncology and Hematology - Charles [address] [place] [address] Frank Singh MD 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) 06/10/2024 Orders Only [facility] Oncology and Hematology - Charles [address] [place] [id number] Frank Singh MD 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) 06/04/2024 Orders Only [facility] Oncology and Hematology - Charles [address] Frank Singh MD 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) 06/03/2024 Abstract [facility] Oncology and Hematology - Charles [address] [place] [address] Frank Singh MD 06/03/2024 Orders Only [facility] Oncology and Hematology - [place] 222Ashlyn [address]z [address] [place] [address] Frank Singh MD 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) 05/28/2024 External Device Data STL ABSTRACTION Provider, Abstract 05/28/2024 Orders Only [facility] Oncology and Hematology - Charles 222Ashlyn [address]z [address] [place] [address] Frank Singh MD 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) 05/27/2024 Abstract [facility] Oncology and Hematology - Charles [address] [place] [address] Frank Singh MD 05/27/2024 Orders Only [facility] Oncology and Hematology - Charles 222[address]lyn [address]z [address] [place] [address] Frank Singh MD 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) 05/21/2024 Orders Only [facility] Oncology and Hematology - Charles [address]z [address] [place] [address] Frank Singh MD 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) 05/20/2024 Orders Only [facility] Oncology and Hematology - Charles [address]z [address] [place] [address] Frank Singh MD 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) 05/14/2024 Orders Only [facility] Oncology and Hematology - Charles 222[address]lyn [address]z [address] [place] [address] Frank Singh MD 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) 05/13/2024 Orders Only [facility] Oncology and Hematology - Charles 222[address]z [address] [place] [address] Frank Singh MD 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) 05/07/2024 Orders Only [facility] Oncology and Hematology - Charles 222[address]z [address] [place] [address] Frank Singh MD 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) 05/06/2024 Orders Only [facility] Oncology and Hematology - Charles [address] [place] [address] Frank Singh MD 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) 05/03/2024 Abstract [facility] Oncology and Hematology - Charles [address] [place] [address] Frank Singh MD 05/02/2024 External Device Data STL ABSTRACTION Provider, Abstract 05/01/2024 External Device Data STL ABSTRACTION Provider, Abstract 04/30/2024 External Device Data STL ABSTRACTION Provider, Abstract 04/30/2024 Orders Only [facility] Oncology and Hematology - Charles [address] [place] [address] Frank Singh MD Acute myeloid leukemia not having achieved remission ([facility]/HCC) 04/29/2024 Orders Only [facility] Oncology and Hematology - Charles [address] [place] [address] Frank Singh MD Acute myeloid leukemia not having achieved remission ([facility]/HCC) 04/25/2024 Orders Only [facility] Oncology and Hematology - Charles [address] [place] [address] Frank Singh MD from Last 3 Months Family History Medical [...] Sex Assigned at Male 04/05/2024 3:07 PM MOTION GRAPHICS DESIGNER Legal Sex Male 10:53 AM CDT Gender Identity Male 04/05/2024 3:07 PM MOTION GRAPHICS DESIGNER Sexual Orientation Not on file Last Filed [...] 2023-2 5 season) 2023 04/14/2021 [place] Preventative Visit/Annual Wellness Visit 04/10/2024 DTAP/TDAP/TD VACCINES (2 - T d or Tdap) 09/17/2028 09/17/2018 PNEUMOCOCCAL VACCINE 50+ YEARS Completed 09/17/2018 , 08/27/2015 Procedures Procedure Name Priority Date/Time Associated Diagnosis Comments CBC WITH DIFFERENTIAL Routine 06/20/2024 11:49 AM CDT BASIC METABOLIC PANEL Routine 06/20/2024 11:41 AM CDT BASIC METABOLIC PANEL Routine 06/10/2024 2:39 PM MOTION GRAPHICS DESIGNER CBC WITH DIFFERENTIAL Routine 06/03/2024 4:15 PM MOTION GRAPHICS DESIGNER CBC WITH DIFFERENTIAL Routine 05/27/2024 12:08 PM MOTION GRAPHICS DESIGNER BASIC METABOLIC PANEL Routine 05/06/2024 12:55 PM MOTION GRAPHICS DESIGNER BASIC METABOLIC PANEL Routine 05/02/2024 1:34 PM MOTION GRAPHICS DESIGNER BASIC METABOLIC PANEL Routine 04/29/2024 4:14 PM MOTION GRAPHICS DESIGNER BASIC METABOLIC PANEL Routine 04/25/2024 4:21 PM MOTION GRAPHICS DESIGNER from Last 3 Months Results * CBC WITH DIFFERENTIAL (06/20/2024 11:49 AM CDT) Only the most recent of3 resultswithin the time period is included. Blood us Frank Singh MD HEMATOLOGY ORDERABLES Final Res ult * BASIC METABOLIC PANEL (06/20/2024 11:41 AM CDT) Only the most recent of6 resultswithin the time period is included. Blood us Frank Singh MD CHEMISTRY ORDERABLES Final Resu lt from Last 3 Months Insurance [facility] Address: [facility] [id number] [place] [address] Care Teams Veterinary Attendant Relationship Specialty Start Date End Date Timothy Banks MD [address] [place] [id number] PCP - General Family Practice 02/01/24
--- OUTSIDE RECORDS SUMMARY | 2024-07-23 12:47 | XMS_ITS | Clinical Summary ---
Author Organization [facility] [address] Address [address] [place] [address] Care Team Providers Care Aquatics Manager Name Role Phone Timothy Bansk MD Primary Care Provider [phone] Allergies Active Allergy Reactions Criticality Noted Date [...] beats 03/31/2016 Overview (07/21/2016): Premature ventricular contraction FDC current use of anticoagulant therapy 1 06/01/2015 [...] Type Department Care Team Description 06/28/2024 Telephone [facility] Cardiology [address] [place] [address] 8th [place] [address] [place] [address] Alberto Moffett MD 04/25/2024 3:00 PM PROPERTY CLAIMS ADJUSTER Ancillary Procedure [facility] [address] [place] [address] 8th [place] [address] [place] [address] SVT (supraventricular tachycardia) 04/25/2024 11:45 AM PROPERTY CLAIMS ADJUSTER Office Visit [facility] [address] [place] [address] 8th [place] [address] [place] [address] Alberto Moffett MD Paroxysmal SVT (supraventricular tachycardia) (Primary Dx); SVT (supraventricular tachycardia) from Last 3 Months Immunizations Immunization Administration [...] gerd, s/p hiatal hernia surfery, ch; Comments: MAF 03/31/2016 - Hx Other Medical CKD; Comments: MAF 03/31/2016 - GERD (gastroesophageal reflux disease) 1974 [...] on file Legal Sex Male 4:19 AM PROPERTY CLAIMS ADJUSTER Gender Identity Male 01/12/2020 7:43 PM CDT Sexual Orientation Straight 01/12/2020 7: 43 PM CDT Obstetrics History Last Filed Vital Signs Vital Sign Reading Time Taken Comments Blood Pressure 142/82 04/25/2024 11:22 AM PROPERTY CLAIMS ADJUSTER Pulse 77 04/25/2024 11:22 AM PROPERTY CLAIMS ADJUSTER Temperature 36.3 C (97.4 F) 08/24/2023 9:29 AM CDT Respiratory Rate 18 08/24/2023 9:29 AM CDT Oxygen Saturation 97% 04/25/2024 11:22 AM PROPERTY CLAIMS ADJUSTER Inhaled Oxygen Concentration - - Weight 97.8 kg (215 lb 9.6 oz) 04/25/2024 11:22 AM PROPERTY CLAIMS ADJUSTER Height 185.4 cm (6' 1 ) 04/25/2024 11:22 AM PROPERTY CLAIMS ADJUSTER Body Mass Index 28.44 04/25/2024 11:22 AM PROPERTY CLAIMS ADJUSTER Plan of Treatment Health Maintenance Due Date Last Done Comments Depression Screening 1945 Fall Risk Assessment 1945 Hepatitis C Screening 1945 Hepatitis B Screening 1962 Well Visit 65+ 2009 Zoster Vaccine (2 of 2) 02/29/2020 01/04/2020 Covid-19 Vaccine (2 - Pfizer risk series) 05/05/2021 04/14/2021 Influenza Vaccine (Season Ended) 2024 12/09/2020, 01/09/2020, 01/04/2020, Additional history exists DTaP/Tdap/Td Vaccine (2 - Td or Tdap) 09/17/2028 09/17/2018 Pneumococcal vaccine 65+ Completed 09/17/2018, 08/08 Procedures Procedure Name Priority Date/Time Associated Diagnosis Comments EXTENDED/ASSISTED HOLTER PATCH (8 DAYS UP TO 15 DAYS) Routine 04/25/2024 12:44 PM PROPERTY CLAIMS ADJUSTER SVT (supraventricular tachycardia) ECG 12-LEAD Routine 04/25/2024 11:28 AM PROPERTY CLAIMS ADJUSTER SVT (supraventricular tachycardia) from Last 3 Months Results * Extended/Long Term Holter Patch (8 days up to 15 days) (04/25/2024 12:44 PM PROPERTY CLAIMS ADJUSTER) Anatomical Region Laterality Modality Electrocardiogra phy 04/25/2024 12:4 4 PM PROPERTY CLAIMS ADJUSTER Narrative 05/23/2024 7:12 PM PROPERTY CLAIMS ADJUSTER [facility] [place] [address] HOLTER MONITOR Patient Name: NADEEM AMAYA W : 1945 (78y 5m) Gender: M Study Date: 04/25/2024 12:44:17 PM Ht(Inch): Wt(Lb): BSA: Tech: Location: [facility] Order Provider: ALBERTO MOFFETT BMI: Ref Provider: ALBERTO MOFFETT PROCEDURES: Holter Report: EXTENDED/ASSISTED HOLTER PATCH (8 DAYS UP TO 15 DAYS) [CAR80]. Enrollment Period: 04/25/2024-05/09/2024. Monitor Number: [id number]. Patient Instructions: Patient picked up device from office and understand directions and use of the equipment. Location: [facility]. INDICATIONS: I47.10 Supraventricular tachycardia, unspecified. FINDINGS: Holter Data: Min Rate: 48 BPM Min Rate Timestamp: 2024-05-09 04:32:31 Max Rate: 253 BPM Max Rate Timestamp: 2024-05-07 11:48:36 Mean Rate: 79 BPM Singlets (PACs): 553875 events Couplets (PACs): 79094 events Total (SVE): 181826 events Singlets (PVCs): 1335 events Couplets (PVCs): 2 events Total (VE): 1350 events Total beats: 5108383 Protocol: Recording Duration (Actual): 1423927.12 Total QRS: 9267944 SUMMARY: *The predominant rhythm was sinus with [...] PDF report can be found in the [facility] patient chart. Electronically Signed By: Kenny Stern Jr., M.D. 05/23/2024 6:10:09 PM PROPERTY CLAIMS ADJUSTER Electronically Signed By: Kenny Stern Jr., M.D. 05/23/2024 6:10:09 PM PROPERTY CLAIMS ADJUSTER Procedure Note Kenny Stern MD PhD - 05/23/2024 [facility] [place] [address] HOLTER MONITOR Patient Name: NADEEM AMAYA W : 1945 (78y 5m) Gender: M Study Date: 04/25/2024 12:44:17 PM Ht(Inch): Wt(Lb): BSA: Tech: Location: [facility] Order Provider: ALBERTO MOFEFTT BMI: Ref Provider: ALBERTO MOFFETT PROCEDURES: Holter Report: EXTENDED/ASSISTED HOLTER PATCH (8 DAYS UP TO 15 DAYS)[CAR80]. Enrollment Period: 04/25/2024-05/09/2024. Monitor Number: [id number]. Patient Instructions: Patient picked up device from office and understanddirections and use of the equipment. Location: [facility]. INDICATIONS: I47.10 Supraventricular tachycardia, unspecified. FINDINGS: Holter Data: Min Rate: 48 BPM Min Rate Timestamp: 2024-05-09 04:32:31 Max Rate: 253 BPM Max Rate Timestamp: 2024-05-07 11:48:36 Mean Rate: 79 BPM Singlets (PACs): 559186 events Couplets (PACs): 69058 events Total (SVE): 742595 events Singlets (PVCs): 1335 events Couplets (PVCs): 2 events Total (VE): 1350 events Total beats: 9959753 Protocol: Recording Duration (Actual): 5584200.12 Total QRS: 6670561 SUMMARY: *The predominant rhythm was sinus with [...] 170 bpm, 04/27 10:55:48, and the Longest [id number] beats, 04/27 10:55:48. *There were 221,618 SVE [...] 170 bpm, 04/27 10:55:48, and the Longest [id number] beats, 04/27 10:55:48. *There were 221,618 SVE beats with a burden of 14 %. There were 3,990occurrences of Supraventricular Tachycardia with the Fastest episode 253 bpm, 04/2810:48:32, and the Longest episode 9m 57.8s, 04/26 04:27:10. *There were 0 Patient Triggers. 2. Agree with findings from [employer] document. 3. The PDF report can be found in the [facility] patient chart. Electronically Signed By: Kenny Stern Jr., M.D. 05/23/2024 6:10:09 PM PROPERTY CLAIMS ADJUSTER Electronically Signed By: Kenny Stern Jr., M.D. 05/23/2024 6:10:09 PM PROPERTY CLAIMS ADJUSTER Alberto Moffett MD [facility] C[facility] PRO CEDURES Final Result * ECG 12 lead (04/25/2024 11:28 AM PROPERTY CLAIMS ADJUSTER) Alberto Moffett MD ECG ORDERABLES Final R esult from Last 3 Months Insurance [facility] MEDICARE [employer] MEDICARE AET MEDICARE Care Teams Aquatics Manager Relationship Specialty Start Date End Date Timothy Banks MD PCP - General 07/08/16
--- OUTSIDE RECORDS SUMMARY | 2024-07-23 12:47 | XMS_ITS | Encounter Summary ---
Author Organization [facility] Address [address] [place] [address] Care Team Providers Care Medical Liaison Name Role Phone Timothy Banks MD Primary Care Provider [phone] Cindy Garcia MD Unavailable Encounter Details Date Type Department Care Team (Late Contact Info) Description 09/28/2023 Lab Requisition [facility] Lab [address] [place] [address] [address] MD [address] [place] [address] Social History Tobacco Use Types Packs/Day Years Used Date Smoking Tobacco: Never Assessed Sex and Gender Information Value Date Recorded Sex Assigned at Male 03/05/2024 8:04 AM CORRECTIONAL OFFICER LIEUTENANT Legal Sex Male 6:32 PM CORRECTIONAL OFFICER LIEUTENANT Gender Identity Male 03/05/2024 8:04 AM CORRECTIONAL OFFICER LIEUTENANT Sexual Orientation Straight 03/05/2024 8: 04 AM CORRECTIONAL OFFICER LIEUTENANT documented as of this encounter Plan of Treatment Upcoming Encounters Date Type Department Care Team (Late Contact Info) Description 07/26/2024 1:00 PM CDT Office Visit [facility] - Cardiology [address] [facility] [address] [facility] [place] [id number] [place] [address] Tracey Pond, FISHERIES BIOLOGIST-ELECTRIC SWITCH REPAIRER [address] [address] 08/05/2024 8:30 AM CDT Appointment [facility] [address] [place] [address] Timothy Banks [place] [address] 08/05/2024 9:00 AM CDT Office Visit [facility] - Hematology/Oncology [address] [place] [phone] Stephanie Connolly, FISHERIES BIOLOGIST-ELECTRIC SWITCH REPAIRER [address] [place] [phone] 08/06/2024 9:00 AM CDT Appointment [facility] [address] [place] [phone] Timothy Banks MD [place] [address] 08/07/2024 8:30 AM CDT Appointment [facility] [address] [place] [address] Timothy Banks MD [place] [address] 08/08/2024 9:00 AM CDT Appointment [facility] [address] [place] [address] Timothy Banks MD [place] [address] 08/09/2024 9:00 AM CDT Appointment [facility] [address] [place] [address] Timothy Banks MD [place] [address] documented as of this encounter Procedures Procedure Name Priority Date/Time Associated Diagnosis Comments DERMATOPATHOLOGY Routine 09/27/2023 12:0 0 AM CDT documented in this encounter Results * DERMATOPATHOLOGY (09/27/2023 12:00 AM CDT) Case Report Dermatopathology Report Case: [id number] Authorizing Provider: Timothy Banks MD Collected: 09/27/2023 12:00 AM Ordering Location: [facility] - Received: 09/28/2023 10:46 AM [...] specimen consists of a shave biopsy measuring 61l95l0 mm. Jar 0. Specimen B: Received is [...] in cassette 2. Jar 0. 12:35 PM CDT DERMATOPATHOLOGY LABORATORY Microscopic Description [...] characteristic determined by the Dermatopathology Laboratory at [facility], directed by Dr. Randall Pringle. These tests need not be, and therefore are not, approved by the [place] Food and Drug Administration. The tests are used for clinical purposes. Billing Codes Specimen Charges Stain Charges 48592 [id number] 1 1 4 12:35 PM CDT DERMATOPATHOLOGY LABORATORY Embedded Images 4 12:35 PM CDT DERMATOPATHOLOGY LABORATORY Pathology/Cytology TISSUE SPECIMEN FROM SKIN / Unknown 09/27/2023 09/28/2023 10:46 AM CDT Miscellaneous samples (specimen) TISSUE SPECIMEN FROM SKIN / Unknown 09/27/2023 09/28/2023 10:46 AM CDT Timothy Banks MD LAB - PATHOLOGY/CYTOLOGY CHELI MONREAL Final Result DERMATOPATHOLOGY LABORATORY [facility] Department of Dermatology [address], [address] [phone] documented in this encounter Visit Diagnoses Not on filedocumented in this encounter Care Teams Medical Liaison Relationship Specialty Start Date End Date Timothy [place] [address] PCP - General 10/19/18 Cindy Garcia MD [address] [place] [address] Contract Paralegal/Oncologis t Hematology and Oncology 03/24/24 documented as of this encounter
--- OUTSIDE RECORDS SUMMARY | 2024-07-23 12:47 | XMS_ITS | Encounter Summary ---
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) Social History Tobacco Use Types Packs/Day Years Used Date Smoking Tobacco: Never Smokeless Tobacco: Never Alcohol Use Standard Drinks/Week Comments Yes 0 (1 standard drink = 0.6 oz pur e alcohol) Very Ocasionally Sex and Gender Information Value Date Recorded Sex Assigned at Male 04/05/2024 3:07 PM DOCUMENTATION CLERK Legal Sex Male 10:53 AM CDT Gender Identity Male 04/05/2024 3:07 PM DOCUMENTATION CLERK Sexual Orientation Not on file documented as of this encounter Plan of Treatment Not on file documented as of this encounter Visit Diagnoses Diagnosis 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 [address] PCP - General Family Practice 02/01/24 documented as of this encounter
--- OUTSIDE RECORDS SUMMARY | 2024-07-23 12:47 | XMS_ITS | Encounter Summary ---
Author Organization [facility] Address [address] [place] [address] Phone Care Team Providers Care Thermit Welding Machine Operator Name Role Phone Timothy Banks MD Primary Care Provider + [phone] Encounter Details Date Type Department Care Team (Late st Contact Info) Description 06/28/2024 Telephone [facility] Cardiology [address] [facility] Advanced Medicine 8th [place] [address] [place] [phone] Alberto Gallegos MD [address] [facility] [address] [place], [place] [phone] Social History Tobacco Use Types Packs/Day Years Used Date Smoking Tobacco: Never Smokeless Tobacco: Never Alcohol Use Standard Drinks/Week Comments Yes 0 (1 standard drink = 0.6 oz pur e alcohol) Sex and Gender Information Value Date Recorded Sex Assigned at Not on file Legal Sex Male 4:19 AM SENIOR ARCHITECT/DESIGN MANAGER Gender Identity Male 01/12/2020 7:43 PM CDT Sexual Orientation Straight 01/12/2020 7: 43 PM CDT documented as of this encounter Miscellaneous Notes * Telephone Encounter - Tiffanie Calderon RN - 07/23/2024 10:35 AM CDT Patient called and the below information regarding the monitor was explained to him. Patient admitsto not really having any symptoms other than an occasional heart racing while wearing the monitor. However- he states that 3 weeks ago he [place] felt his heart race/ tingling sensation and then went down- this happened 2 other times within the following weeks. He said as of now he hasn't felt anything this past week. He is very concerned and would like a plan of action regarding the syncope . * Telephone Encounter - Alberto Gallegos MD - 07/23/2024 9:31 AM CDT Lets check on current symptoms of patient who we4 saw in April fro SVT. He wore a montior that captured some episodes of SVT that were of fast rate but short duration with longest epsiode being 9 minutes. There is some wobble in tachycardia cycle length with an appearance at times that suggest potential degeneration into atrial fibrillation but it becomes organized in his most consistent with an atrial tachycardia. Given low burden and short duration of SVT and recent diagnosis of AML undergoing chemotherapy, it would be very reasonable to continue conservative therapy with diltiazem. Diltiazem can be titrated based on symptoms. During this monitor the patient did not activate the monitorfor any symptomatic episodes but let us confirm that he has not any had any significant tachy palpitations, syncope/near-syncope DHC * Telephone Encounter - Lyubov Nicolas RN - 06/28/2024 11:52 AM CDT I called pt to let him know Dr. Gallegos has not reviewed the monitor as of yet but I will call him as soon as I get the results from El [facility] and call him with further recommendations. He was appreciative of the f/u call. * Telephone Encounter - Bronwyn Dueñas - 06/28/2024 10:51 AM CDT El Pt calling to speak with a nurse in regards to his heart monitor results. documented in this encounter Plan of Treatment Not on file documented as of this encounter Visit Diagnoses Not on filedocumented in this encounter Care Teams Thermit Welding Machine Operator Relationship Specialty Start Date End Date Timothy Banks MD PCP - General 07/08/16 documented as of this encounter
--- OUTSIDE RECORDS SUMMARY | 2024-07-23 12:47 | XMS_ITS | Encounter Summary ---
Author Organization [facility] Address [address] [place] [address] Phone Care Team Providers Care Customer Experience Analyst Name Role Phone Timothy Banks MD Primary Care Provider [phone] Encounter Details Date Type Department Care Team (Late st Contact Info) Description 01/25/2024 Telephone [facility] Cardiology [address] [facility] Advanced Medicine 8th [place] [address] [place] [address] Alberto Gallegos MD [address] [facility] [address] [address] Social History Tobacco Use Types Packs/Day Years Used Date Smoking Tobacco: Never Smokeless Tobacco: Never Alcohol Use Standard Drinks/Week Comments Yes 0 (1 standard drink = 0.6 oz pur e alcohol) Sex and Gender Information Value Date Recorded Sex Assigned at Not on file Legal Sex Male 4:19 AM MEDICAL OFFICE TECHNOLOGY INSTRUCTOR Gender Identity Male 01/12/2020 7:43 PM CDT Sexual Orientation Straight 01/12/2020 7: 43 PM CDT documented as of this encounter Plan of Treatment Not on file documented as of this encounter Visit Diagnoses Not on filedocumented in this encounter Care Teams Customer Experience Analyst Relationship Specialty Start Date End Date Timothy Banks MD PCP - General 07/08/16 documented as of this encounter
--- OUTSIDE RECORDS SUMMARY | 2024-07-23 12:47 | XMS_ITS | Encounter Summary ---
Author Organization [facility] Address [address] [place] [address] Care Team Providers Care Dolphin Researcher Name Role Phone Timothy Banks MD Primary Care Provider [phone] Cindy Garcia MD Unavailable Encounter Details Date Type Department Care Team (Late st Contact Info) Description 02/12/2024 Lab Requisition [facility] - Pathology Lab [address] [place] [address] Rommel Dinh MD [address] [facility] [address] [place] [address] Decreased white blood cell count, unspecified Social History Tobacco Use Types Packs/Day Years Used Date Smoking Tobacco: Never Assessed Sex and Gender Information Value Date Recorded Sex Assigned at Male 03/05/2024 8:04 AM SERVICE REPRESENTATIVE Legal Sex Male 6:32 PM SERVICE REPRESENTATIVE Gender Identity Male 03/05/2024 8:04 AM SERVICE REPRESENTATIVE Sexual Orientation Straight 03/05/2024 8: 04 AM SERVICE REPRESENTATIVE documented as of this encounter Plan of Treatment Upcoming Encounters Date Type Department Care Team (Late Contact Info) Description 07/26/2024 1:00 PM CDT Office Visit [facility] - Cardiology [address] [facility] [phone] [place] [address] Tracey Pond, LINEN CHECKER-SLIP BRIDGE OPERATOR [phone] [place] [address] 08/05/2024 8:30 AM CDT Appointment [facility] [address] [place] [address] Timothy Banks MD [address] [place] [phone] 08/05/2024 9:00 AM CDT Office Visit [facility] - Hematology/Oncology [address] [place] [phone] Stephanie Connolly APRN-SLIP BRIDGE OPERATOR [address] [place] [phone] 08/06/2024 9:00 AM CDT Appointment [facility] [address] [place] [phone] Timothy Banks MD [address] [place] [phone] 08/07/2024 8:30 AM CDT Appointment [facility] [address] [place] [address] Timothy Banks MD [address] [place] [address] 08/08/2024 9:00 AM CDT Appointment [facility] [address] [place] [address] Timothy Banks MD [address] [place] [address] 08/09/2024 9:00 AM CDT Appointment [facility] [address] [place] [address] Timothy Banks MD [address] [place] [address] [phone] (work) documented as of this encounter Procedures Procedure Name Priority Date/Time Associated Diagnosis Comments FLOW CYTOMETRY BONE MARROW Routine 02/12/2024 9:20 AM SERVICE REPRESENTATIVE Decreased white blood cell count, unspecified documented in this encounter Results * FLOW CYTOMETRY BONE MARROW (02/12/2024 9:20 AM SERVICE REPRESENTATIVE) Case Report Flow Cytometry Case: [id number] Authorizing Provider: Rommel Dinh Collected: 02/12/2024 09:20 AM MD Luke Ordering Location: [facility] - Received: 02/12/2024 12:12 PM Pathology Lab Pathologist: Daniela Bronson MD Specimen: Bone Marrow 02/12/2024 3:44 PM SERVICE REPRESENTATIVE [facility] Final Diagnosis Bone marrow, [...] on 02/12/2024 at 1539. 02/12/2024 3:44 PM SERVICE REPRESENTATIVE [facility] Flow Cytometry Interpretation Viability: [...] cytometry specimen has been reviewed for quality measurement specialist purposes. Review the bone marrow aspirate smears reveals 20% blasts with only rare promyelocytes identified. Carolyn rods are not seen. 02/12/2024 3:44 PM [facility] Flow Cytometry Results Differential Result Comment Flow Cell Count /uL 20,700 Total Viability % 97.0 Lymphocytes % 12 Dim CD45 Region % 44 Monocytes % 1 Granulocytes % 42 02/12/2024 3:44 PM [facility] Reason for test Decreased white blood cell count, unspecified 02/12/2024 3:44 PM [facility] Client Specimen ID # [id number] 02/12/2024 3:44 PM [facility] Number of markers [...] CD56 A-20 Flow CD64 A-28 cyCD22 A-29 eiKP97g A-16 [place]+CD19+ A-17 Lambda+CD19+ A-24 Flow HLA-DR A-25 Flow MPO A-26 Flow TdT A-27 cyCD3 02/12/2024 3:44 PM [facility] Pathologist Location at [facility] 02/12/2024 3:44 PM [facility] Disclaimer Test performed at [facility], [address] [place] [address], [address]. *The established laboratory minimum viability is 70%. [...] high complexity clinical testing. 02/12/2024 3:44 PM SERVICE REPRESENTATIVE [facility] Embedded Images 3:44 PM SERVICE REPRESENTATIVE [facility] Pathology/Cytolo gy BONE MARROW SPECIMEN / Unknown 02/12/2024 9:20 AM SERVICE REPRESENTATIVE 02/12/2024 12:12 PM SERVICE REPRESENTATIVE Rommel Dinh MD LAB - PATHOLOGY/CYT OLOGY ORDERABLES Final Result Performing Organization Address City/State/[facility] Co de Phone Number [facility] [address] [place], [place] [address] [phone] documented in this encounter Visit Diagnoses Diagnosis Decreased white blood cell count, unspecified documented in this encounter Care Teams Dolphin Researcher Relationship Specialty Start Date End Date Timothy Banks MD [address] [place] [phone] PCP - General 10/19/18 Cindy Garcia MD [address] [place] [address] Council Member/Oncologis t Hematology and Oncology 03/24/24 documented as of this encounter
[2024-07-23 13:36] LABS: Anion Gap 13 mmol/L (4-12); Blood Urea Nitrogen 14 mg/dL (9-20); Calcium 9.6 mg/dL (8.4-10.2); Carbon Dioxide 29 mmol/L (22-30); Chloride 101 mmol/L (98-107); Estimated Glomerular Filt Rate 58; Glucose 140 mg/dL (65-110); Potassium 4.2 mmol/L (3.4-5.0); Sodium 143 mmol/L (137-145)
== END 2024-07-23 11:30 | disposition home or self-care (01) ==
LOC: ANHLAB 11:30
PROVIDERS: PCP Family Medicine; Visit Provider Internal Medicine Hematology & Oncology
DX: C92.00 Acute myeloblastic leukemia, not having achieved remission (principal)
CPT/HCPCS: 36415; 80048; 85025; 85055

== ENCOUNTER 2024-09-16 09:27 | Outpatient (CLI) | payer MEDICARE, SELFPAY ==
[2024-09-16 09:46] LABS: Basophils Percent Auto 0.7 % (0.2-1.2); Hematocrit 37.6 % (42.0-52.0); Hemoglobin 12.6 g/dL (14.0-18.0); Immature Platelet Fraction Pct 9.5 % (0.9-11.2); Lymphocytes Absolute Auto 0.84 K/mm3 (0.9-3.2); Lymphocytes Percent Auto 56.4 % (18.3-44.2); Mean Corpuscular HGB Conc 33.5 g/dl (32-36); Mean Corpuscular Hemoglobin 33.2 pg (26-34); Mean Corpuscular Volume 99.2 fl (80-100); Monocytes Absolute Auto 0.1 K/mm3 (0.1-0.6); Monocytes Percent Auto 5.4 % (2.6-8.5); Neutrophils Absolute Auto 0.6 K/mm3 (1.3-6.7); Neutrophils Percent Auto 37.5 % (45.5-73.1); Platelet Count Result 38 k/mm3 (150-375); Red Blood Count 3.79 M/mm3 (4.6-6.20); Red Cell Distribution Width 21.5 % (11.5-14.5)
[2024-09-16 09:51] LABS: White Blood Count 1.5 K/mm3 (4.5-10.0)
--- OUTSIDE RECORDS SUMMARY | 2024-09-16 10:13 | XMS_ITS | Encounter Summary ---
Author Organization [facility] Address [address] [facility] [place] [address] Care Team Providers Care Bezel Cutter Name Role Phone Timothy Banks MD Primary Care Provider [phone] Cindy Garcia MD Unavailable Encounter Details Date Type Department Care Team (Late Contact Info) Description 09/28/2023 Lab Requisition [facility] - DermPath Lab [address] [place] [address] Timothy Banks MD [address] [place] [address] Social History Tobacco Use Types Packs/Day Years Used Date Smoking Tobacco: Never Assessed Sex and Gender Information Value Date Recorded Sex Assigned at Male 03/05/2024 8:04 AM OVEN EQUIPMENT REPAIRER Legal Sex Male 6:32 PM OVEN EQUIPMENT REPAIRER Gender Identity Male 03/05/2024 8:04 AM OVEN EQUIPMENT REPAIRER Sexual Orientation Straight 03/05/2024 8: 04 AM OVEN EQUIPMENT REPAIRER documented as of this encounter Plan of Treatment Upcoming Encounters Date Type Department Care Team (Late Contact Info) Description 09/23/2024 9:00 AM CDT Appointment [facility] [address] [place] [address] 09/23/2024 9:30 AM CDT Office Visit [facility] - Hematology/Oncology [address] [place] [phone] Cindy Garcia MD [address] [place] [address] 09/24/2024 9:00 AM CDT Appointment [facility] [address] [place] [address] 09/25/2024 8:30 AM CDT Appointment [facility] [address] [place] [address] 09/26/2024 9:00 AM CDT Appointment [facility] [address] [place] [address] 09/27/2024 8:30 AM CDT Appointment [facility] [address] [place] [address] 11/22/2024 1:00 PM CDT Office Visit [facility] - Cardiology [address] [facility] [address] [place] [address] Kaushal Archer MD [address] [place] [address] documented as of this encounter Procedures Procedure Name Priority Date/Time Associated Diagnosis Comments DERMATOPATHOLOGY Routine 09/27/2023 12:0 0 AM CDT documented in this encounter Results * DERMATOPATHOLOGY (09/27/2023 12:00 AM CDT) Case Report Dermatopathology Report Case: [id number] Authorizing Provider: Timothy Banks MD Collected: 09/27/2023 12:00 AM Ordering Location: [facility] - Received: 09/28/2023 10:46 AM DermPath Lab Pathologist: Kerry Pringle MD Specimens: A) - Skin, left neck B) - Skin, left axilla 12:35 PM CDT DERMATOPATHOLOGY LABORATORY Final Diagnosis Specimen A. SKIN, left neck: SEBORRHEIC KERATOSIS, IRRITATED AND INFLAMED (L82.0) PRESENT AT MARGIN Specimen B. SKIN, left axilla: PIGMENTED SEBORRHEIC KERATOSIS (L82.1) PRESENT AT MARGIN 06/21/202 4 12:35 PM CDT DERMATOPATHOLOGY LABORATORY at 1235 CDT Clinical History A-B: Changing lesion 4 12:35 PM CDT DERMATOPATHOLOGY LABORATORY Gross Description Specimen A: Received is one formalin filled container labeled with the patient's name and designated left neck. The specimen consists of a shave biopsy measuring 96w33x6 mm. Jar 0. Specimen B: Received is [...] characteristic determined by the Dermatopathology Laboratory at [facility], directed by Dr. Randall Pringle. These tests need not be, and therefore are not, approved by the [place] Food and Drug Administration. The tests are used for clinical purposes. Billing Codes Specimen Charges Stain Charges 16589 [id number] 1 1 4 12:35 PM CDT DERMATOPATHOLOGY LABORATORY Embedded Images 4 12:35 PM CDT DERMATOPATHOLOGY LABORATORY Pathology/Cytology TISSUE SPECIMEN FROM SKIN / Unknown 09/27/2023 09/28/2023 10:46 AM CDT Miscellaneous samples (specimen) TISSUE SPECIMEN FROM SKIN / Unknown 09/27/2023 09/28/2023 10:46 AM CDT Timothy Banks MD LAB - PATHOLOGY/CYTOLOGY CHELI MONREAL Final Result DERMATOPATHOLOGY LABORATORY [facility] - Department of Dermatology [address] [phone] documented in this encounter Visit Diagnoses Not on filedocumented in this encounter Additional Health Concerns Infection Onset Date Last Indicated Resolved Time COVID-19 Under Investigation 08/08/2024 08/08/2024 08/08/2024 2:07 PM CDT documented as of this encounter Care Teams Bezel Cutter Relationship Specialty Start Date End Date Timothy Banks MD [address] [place] [address] PCP - General 10/19/18 Cindy Garcia MD [address] [place] [address] Pre Kindergarten Teacher/Oncologis t Hematology and Oncology 03/24/24 documented as of this encounter
--- OUTSIDE RECORDS SUMMARY | 2024-09-16 10:13 | XMS_ITS | Referral Summary ---
Author Organization [facility] [address] Address [address] [place] [address] Care Team Providers Care Showroom Manager Name Role Phone Timothy Banks MD Primary Care Provider Encounters Date Type Department Care Team Description 08/02/2024 Telephone [facility] Cardiology [address] [facility] Advanced Medicine [address]th [place] [address] [place] [address] Alberto Gallegos MD 06/28/2024 Telephone [facility] Cardiology [address] [facility] Advanced Medicine [address]th [place] [address] [place] [address] Alberto Gallegos MD from Last 3 Months Allergies Active [...] Active apixaban (ELIQUIS) 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 Take [...] beats 03/31/2016 Overview (07/21/2016): Premature ventricular contraction group home current use of anticoagulant therapy 1 06/01/2015 [...] on file Legal Sex Male 4:19 AM DRY LUMBER GRADER Gender Identity Male 01/12/2020 7:43 PM CDT Sexual Orientation Straight 01/12/2020 7: 43 PM CDT Last Filed Vital Signs Vital Sign Reading Time Taken Comments Blood Pressure 142/82 04/25/2024 11:22 AM DRY LUMBER GRADER Pulse 77 04/25/2024 11:22 AM DRY LUMBER GRADER Temperature 36.3 C (97.4 F) 08/24/2023 9:29 AM CDT Respiratory Rate 18 08/24/2023 9:29 AM CDT Oxygen Saturation 97% 04/25/2024 11:22 AM DRY LUMBER GRADER Inhaled Oxygen Concentration - - Weight 97.8 kg (215 lb 9.6 oz) 04/25/2024 11:22 AM DRY LUMBER GRADER Height 185.4 cm (6' 1) 04/25/2024 11:22 AM DRY LUMBER GRADER Body Mass Index 28.44 04/25/2024 11:22 AM DRY LUMBER GRADER Plan of Treatment Not on file Insurance [address] [place] [address] [facility] MEDICARE [address] [place] [address] [facility] MEDICARE [address] [phone] [facility] MEDIC[facility] Care Teams Showroom Manager Relationship Specialty Start Date End Date Timothy Banks MD PCP - General 07/08/16
--- OUTSIDE RECORDS SUMMARY | 2024-09-16 10:13 | XMS_ITS ---
Author Organization [facility] Address [address] [facility] [place] [address] Care Team Providers Care Ornamental Brick Installer Name Role Phone Timothy Banks MD Primary Care Provider [phone] Cindy Garcia MD Unavailable Active Problems Problem Noted Date Diagnosed Date Weakness 08/08/2024 Assessment & Plan (08/08/2024 4:17 PM CDT): -Afebrile today -reported Tmax 101.7 at home -CT noting diverticulitis -Continue Cefepime and flagyl -consider GI consult if symptoms not improving -continue LR- repeat lactic with AM labs Abdominal pain, unspecified abdominal location 0 08/08/2024 Assessment & Plan (08/08/2024 4:17 PM CDT): -Afebrile today -reported Tmax 101.7 at home -CT noting diverticulitis -Continue Cefepime and flagyl -consider GI consult if symptoms not improving -continue LR- repeat lactic with AM labs Diverticulitis 08/08/2024 Assessment & Plan (08/08/2024 4:17 PM CDT): -Afebrile today -reported Tmax 101.7 at home -CT noting diverticulitis -Continue Cefepime and flagyl -consider GI consult if symptoms not improving -continue LR- repeat lactic with AM labs Lactic acidosis 08/08/2024 Assessment & Plan (08/08/2024 4:17 PM CDT): -Afebrile today -reported Tmax 101.7 at home -CT noting diverticulitis -Continue Cefepime and flagyl -consider GI consult if symptoms not improving -continue LR- repeat lactic with AM labs Primary hypertension 08/08/2024 Assessment & Plan (08/08/2024 4:17 PM CDT): -Home regimen: amiodarone 200mg daily, Diltiazem 120mg daily, Eliquis 2.5 bid -continue home regimen Chronic atrial fibrillation 08/08/2024 Assessment & Plan (08/08/2024 4:17 PM CDT): -Home regimen: amiodarone 200mg daily, Diltiazem 120mg daily, Eliquis 2.5 bid -continue home regimen Acute myeloid leuk w multilin dysplasia, 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 MDS (myelodysplastic syndrome) 03/13/2024 Current Treatment and Therapy Plans AML (DECITABINE VENETOCLAX) Q28 DAYS* Plan Start Date:03/18/2024 Plan Provider:Cindy Garcia MD Linked Problems Acute myeloid leuk w multili n dysplasia, not achieve remis (HCC) Treatment Medications Current Day (Day 1 , Cycle 6 - Planned for 09/23/2024) Next Day (Day 2, Cycle 6 - Planned for 09/24/2024) decitabine (Dacogen) infusionvenetoclax (Venclexta) decitabine (Dacogen) 45 [...] Garcia MD 1 of 6 cycles started Resolved Problems Problem Noted Date Diagnosed Date Resolved Date Neutropenic fever 08/08/2024 08/24/2024 Assessment & Plan (08/08/2024 4:17 PM CDT): -Afebrile today -reported Tmax 101.7 at home -CT noting diverticulitis -Continue Cefepime and flagyl -consider GI consult if symptoms not improving -continue LR- repeat lactic with AM labs Cough 08/08/2024 09/05/2024 Assessment & Plan (08/08/2024 4:17 PM CDT): -Afebrile today -reported Tmax 101.7 at home -CT noting diverticulitis -Continue Cefepime and flagyl -consider GI consult if symptoms not improving -continue LR- repeat lactic with AM labs
--- OUTSIDE RECORDS SUMMARY | 2024-09-16 10:13 | XMS_ITS | Encounter Summary ---
Author Organization [facility] Address [address] [place] [address] Care Team Providers Care Printer'S Devil Name Role Phone Timothy Banks MD Primary Care Provider [phone] Cindy Garcia MD Unavailable Encounter Details Date Type Department Care Team (Late Contact Info) Description 02/12/2024 Lab Requisition [facility] - Pathology Lab [address] [place] [address] Rommel Dinh MD [address] [facility] [address] [place] [address] Decreased white blood cell count, unspecified Social History Tobacco Use Types Packs/Day Years Used Date Smoking Tobacco: Never Assessed Sex and Gender Information Value Date Recorded Sex Assigned at Male 03/05/2024 8:04 AM HEEL FINISHER Legal Sex Male 6:32 PM HEEL FINISHER Gender Identity Male 03/05/2024 8:04 AM HEEL FINISHER Sexual Orientation Straight 03/05/2024 8: 04 AM HEEL FINISHER documented as of this encounter Plan of Treatment Upcoming Encounters Date Type Department Care Team (Late Contact Info) Description 09/23/2024 9:00 AM CDT Appointment [facility] [address] [place] [address] 09/23/2024 9:30 AM CDT Office Visit [facility] - Hematology/Oncology [address] [place] [phone] Cindy Garcia MD [address] [place] [address] 09/24/2024 9:00 AM CDT Appointment [facility] [address] [place] [address] 09/25/2024 8:30 AM CDT Appointment [facility] [address] [place] [address] 09/26/2024 9:00 AM CDT Appointment [facility] [address] [place] [address] 09/27/2024 8:30 AM CDT Appointment [facility] [address] [place] [address] 11/22/2024 1:00 PM CDT Office Visit [facility] - Cardiology [address] [facility] [address] [place] [address] Kaushal Archer MD [address] [place] [address] documented as of this encounter Procedures Procedure Name Priority Date/Time Associated Diagnosis Comments FLOW CYTOMETRY BONE MARROW Routine 02/12/2024 9:20 AM HEEL FINISHER Decreased white blood cell count, unspecified documented in this encounter Results * FLOW CYTOMETRY BONE MARROW (02/12/2024 9:20 AM HEEL FINISHER) Case Report Flow Cytometry Case: [id number] Authorizing Provider: Rommel Dinh Collected: 02/12/2024 09:20 AM MD Luke Ordering Location: [facility] - Received: 02/12/2024 12:12 PM Pathology Lab Pathologist: Daniela Bronson MD Specimen: Bone Marrow 02/12/2024 3:44 PM HEEL FINISHER [facility] Final Diagnosis Bone marrow, flow [...] on 02/12/2024 at 1539. 02/12/2024 3:44 PM [facility] at 1544 HEEL FINISHER Flow Cytometry Interpretation Viability: 97% B-cells: 6% [...] flow cytometry specimen has been reviewed for assistant quality manager purposes. Review the bone marrow aspirate smears reveals 20% blasts with only rare promyelocytes identified. Carolyn rods are not seen. 02/12/2024 3:44 PM [facility] Flow Cytometry Results Differential Result Comment Flow Cell Count /uL 20,700 Total Viability % 97.0 Lymphocytes % 12 Dim CD45 Region % 44 Monocytes % 1 Granulocytes % 42 02/12/2024 3:44 PM [facility] Reason for test Decreased white blood cell count, unspecified 02/12/2024 3:44 PM [facility] Client Specimen ID # [id number] 02/12/2024 3:44 PM [facility] Number of markers 29 were [...] CD56 A-20 Flow CD64 A-28 cyCD22 A-29 aaFJ72n A-16 [place]+CD19+ A-17 Lambda+CD19+ A-24 Flow HLA-DR A-25 Flow MPO A-26 Flow TdT A-27 cyCD3 02/12/2024 3:44 PM [facility] Pathologist Location at [facility] 02/12/2024 3:44 PM [facility] Disclaimer Test performed at [facility], [address] [place] [address], [address]. *The established laboratory minimum viability is 70%. [...] 02/12/2024 3:44 PM [facility] Embedded Images 3:44 PM [facility] Pathology/Cytolo gy BONE MARROW SPECIMEN / Unknown 02/12/2024 9:20 AM HEEL FINISHER 02/12/2024 12:12 PM HEEL FINISHER Rommel Dinh MD LAB - PATHOLOGY/CYT OLOGY ORDERABLES Final Result [facility] [address] [place] [address]. [place] [address], [facility] [phone] documented in this encounter Visit Diagnoses Diagnosis Decreased white blood cell count, unspecified documented in this encounter Additional Health Concerns Infection Onset Date Last Indicated Resolved Time COVID-19 Under Investigation 08/08/2024 08/08/2024 08/08/2024 2:07 PM CDT documented as of this encounter Care Teams Printer'S Devil Relationship Specialty Start Date End Date Timothy Banks MD [address] [place] [address] PCP - General 10/19/18 Cindy Garcia MD [address] [place] [address] Hvac Installation Technician/Oncologis t Hematology and Oncology 03/24/24 documented as of this encounter
--- OUTSIDE RECORDS SUMMARY | 2024-09-16 10:13 | XMS_ITS | Encounter Summary ---
Author Organization [facility] Address [address] [address] Care Team Providers Care Distribution Specialist Name Role Phone Timothy Banks MD Primary Care Provider [phone] Cindy Garcia MD Unavailable Encounter Details Date Type Department Care Team (Late st Contact Info) Description 02/13/2024 Lab Requisition [facility] - Pathology Lab [address] [place] [address] Rommel Dinh MD [address] [address] Illness, unspecified Social History Tobacco Use Types Packs/Day Years Used Date Smoking Tobacco: Never Assessed Sex and Gender Information Value Date Recorded Sex Assigned at Male 03/05/2024 8:04 AM RESIDENT CARE ASSISTANT Legal Sex Male 6:32 PM RESIDENT CARE ASSISTANT Gender Identity Male 03/05/2024 8:04 AM RESIDENT CARE ASSISTANT Sexual Orientation Straight 03/05/2024 8: 04 AM RESIDENT CARE ASSISTANT documented as of this encounter Plan of Treatment Upcoming Encounters Date Type Department Care Team (Late st Contact Info) Description 09/23/2024 9:00 AM CDT Appointment [facility] [address] [place] [address] 09/23/2024 9:30 AM CDT Office Visit [facility] - Hematology/Oncology [address] [place] [phone] Cindy Garcia MD [address] [place] [address] 09/24/2024 9:00 AM CDT Appointment [facility] [address] [place] [address] 09/25/2024 8:30 AM CDT Appointment [facility] [address] [place] [address] 09/26/2024 9:00 AM CDT Appointment [facility] [address] [place] [address] 09/27/2024 8:30 AM CDT Appointment [facility] [address] [place] [address] 11/22/2024 1:00 PM CDT Office Visit [facility] - Cardiology [address] [facility] [address] [place] [address] Kaushal Archer MD [address] [place] [address] documented as of this encounter Procedures Procedure Name Priority Date/Time Associated Diagnosis Comments BONE MARROW BIOPSY (STL) Routine 02/12/2024 9:20 AM RESIDENT CARE ASSISTANT Illness, unspecified documented in this encounter Results * BONE MARROW BIOPSY (STL) (02/12/2024 9:20 AM RESIDENT CARE ASSISTANT) Case Report Bone Marrow Patholog y Report Case: [id number] Authorizing Provider: Rommel Dinh Collected: 02/12/2024 09:20 AM MD Luke Ordering Location: [facility] - Received: 02/13/2024 12:34 PM Pathology Lab Pathologist: Daniela Bronson MD Specimens: A) - Bone Marrow Clot B) - Bone Marrow Core 02/14/2024 1:43 PM RESIDENT CARE ASSISTANT [facility] PATHOLOGY LAB Final Diagnosis Bone marrow, iliac crest, core biopsy, clot section, and aspirate: - Increased myeloblasts (up to 30% by morphology) with mild trilineage dyspoiesis involving a hypercellular bone marrow (70-80% cellular), see comment - Absent iron stores - Patchy and mild increase in reticulin fibrosis (MF-1) 02/14/2024 1:43 PM [facility] at 1343 RESIDENT CARE ASSISTANT AP Comment The patient is a 78-year-old man [...] a high-grade myeloid neoplasm. 02/14/2024 1:43 PM [facility] Peripheral Smear Description The [...] including numerous giant platelets. 02/14/2024 1:43 PM [facility] Bone Marrow Aspirate Differential [...] stain): no ring sideroblasts. 02/14/2024 1:43 PM [facility] Bone Marrow Core Biopsy [...] similar to core biopsy. 02/14/2024 1:43 PM [facility] Flow Cytometry Summary Flow cytometry identified 35% myeloblasts and no diagnostic immunophenotypic evidence of monoclonal B-cells, an aberrant T-cell population, or plasma cell neoplasm ([id number]). 02/14/2024 1:43 PM [facility] Clinical History Chronic leukopenia 02/14/2024 1:43 PM [facility] Materials Received Received are 19 slide(s) and 3 blocks labeled [id number] along with a copy of the outside pathology report. [place] [address]. All original materials are returned to the referring institution, along with a copy of our final report. 02/14/2024 1:43 PM [facility] Microscopic Description CD34 immunohistochemistry [...] sections reveal absent stores. 02/14/2024 1:43 PM [facility] Pathologist Location at [facility] 02/14/2024 1:43 PM [facility] Disclaimer The performance characteristics of all immunohistochemical and indirect immunofluorescence stains (if any) cited in this report were determined by the Histopathology Laboratory of [facility]. Some of these tests were developed [...] the attending (teaching) pathologist. 02/14/2024 1:43 PM [facility] Embedded Images 02/14/2024 1:43 PM [facility] Pathology/Cytology BONE MARROW SPECIMEN / Unknown 02/12/2024 9:20 AM RESIDENT CARE ASSISTANT 02/13/2024 12:34 PM RESIDENT CARE ASSISTANT Miscellaneous samples (specimen) BONE MARROW SPECIMEN / Unknown 02/12/2024 9:20 AM RESIDENT CARE ASSISTANT 02/13/2024 12:34 PM RESIDENT CARE ASSISTANT Rommel Dinh MD LAB - PATHOLOGY/CYT OLOGY ORDERABLES Final Result Performing Organization Address City/State/[facility] Co de Phone Number [facility] [address] [phone] documented in this encounter Visit Diagnoses Diagnosis Illness, unspecified documented in this encounter Additional Health Concerns Infection Onset Date Last Indicated Resolved Time COVID-19 Under Investigation 08/08/2024 08/08/2024 08/08/2024 2:07 PM CDT documented as of this encounter Care Teams Distribution Specialist Relationship Specialty Start Date End Date Timothy Banks MD [address] [place] [address] PCP - General 10/19/18 Cindy Garcia MD [address] [place] [address] Unit Manager Rn/Oncologis t Hematology and Oncology 03/24/24 documented as of this encounter
--- OUTSIDE RECORDS SUMMARY | 2024-09-16 10:13 | XMS_ITS | Clinical Summary ---
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 use of anticoagulant therapy Take 1 [...] Type Department Care Team Description 08/02/2024 Telephone [facility] Card[facility] [address] [facility] [address]th [place] [address] [place] [address] Alberto Gallegos MD 06/28/2024 Telephone [facility] [address] [facility] [address] [place] [address] [place] [address] Alberto Gallegos MD from Last 3 Months Immunizations Immunization Administration [...] Medical recurrent DVT, gerd, s/p hiatal hernia [facility], ; Comments: [facility] 03/31/2016 - Hx Other Medical CKD; Comments: [facility] 03/31/2016 - GERD (gastroesophageal reflux disease) 1974 Cataract 2018 Chronic bronchitis (HCC) ? Heart disease 2016 Chronic kidney disease 2010 Sleep apnea 2018 Family History Medical History Relation Name Comments Alzheimer's disease Brother Emmett Slater Erlin Alzheimer's disease Father Jeffrey Barrios Erlin Alzheimer's disease Mother Daisy Ayala Erlin Alzheimer's disease Sister Leslie Dewey Relation Name [...] on file Legal Sex Male 4:19 AM IMPREGNATOR AND DRIER HELPER Gender Identity Male 01/12/2020 7:43 PM CDT Sexual Orientation Straight 01/12/2020 7: 43 PM CDT Obstetrics History Last Filed Vital Signs Vital Sign Reading Time Taken Comments Blood Pressure 142/82 04/25/2024 11:22 AM IMPREGNATOR AND DRIER HELPER Pulse 77 04/25/2024 11:22 AM IMPREGNATOR AND DRIER HELPER Temperature 36.3 C (97.4 F) 08/24/2023 9:29 AM CDT Respiratory Rate 18 08/24/2023 9:29 AM CDT Oxygen Saturation 97% 04/25/2024 11:22 AM IMPREGNATOR AND DRIER HELPER Inhaled Oxygen Concentration - - Weight 97.8 kg (215 lb 9.6 oz) 04/25/2024 11:22 AM IMPREGNATOR AND DRIER HELPER Height 185.4 cm (6' 1) 04/25/2024 11:22 AM IMPREGNATOR AND DRIER HELPER Body Mass Index 28.44 04/25/2024 11:22 AM IMPREGNATOR AND DRIER HELPER Plan of Treatment Health Maintenance Due [...] vaccine 65+ Completed 09/17/2018, 08/08 Insurance [address] [place] [id number] [employer] MED[employer]ARE [address] [place] [phone] [employer] MED[employer] [address] [place] [phone] [employer] Care Teams Industrial Psychology Professor Relationship Specialty Start Date End Date Timothy Banks MD [facility] - General 07/08/16
--- OUTSIDE RECORDS SUMMARY | 2024-09-16 10:13 | XMS_ITS | Clinical Summary ---
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 This disclosure is being madepursuant to the Care Everywhere program and may not contain all information available regarding this patient. Last updated 17.[facility] Allergies Active Allergy Reactions Criticality Noted Date Comments Contrast-Gadolinium Agents For Mri Urticaria Medium 1 05/04/2023 Medications * Be aware that medications may not be up to date on this document. Alwaysverify current medications with the patient. 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 03/23/20 24 Active valACYclovir (Valtrex) 500 MG tabletIndicati ons:Acute myeloid leuk w multilin dysplasia, 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) Take 1 (one) tablet by mouth 2 times daily 60 tablet 5 05/16/19 25 Active FeroSul 325 (65 Fe) MG tabletIndicati ons:Acute myeloid leuk w multilin dysplasia, 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 Active cefpodoxime (Vantin) 200 MG tablet Take 1 (one) tablet by mouth every 12 hours Please hold while taking augmentin. Restart on 08/22/2024. 08/12/19 25 Active venetoclax (Venclexta) 100 MG tabletIndicati ons:Acute Myelocytic Leukemia Take 2 (two) tablets by mouth daily with food Reasons: Acute Myelocytic Leukemia 30 tablet 3 08/15/19 25 025 Active isavuconazoniu m (Cresemba) 186 MG capsule Take 2 (two) capsules by mouth every 24 hours 56 capsule 3 08/15/19 25 Active nortriptyline (Pamelor) 25 MG capsule Take 1 (one) capsule by mouth at bedtime 08/19/19 25 Active apixaban (Eliquis) 2.5 MG tablet Take 1 (one) tablet by mouth 2 times daily 60 tablet 3 08/29/19 25 Active apixaban (Eliquis) 2.5 MG tablet Take 1 (one) tablet by mouth 2 times daily 60 tablet 3 04/18/19 25 025 Discontinu ed(Reorder ) amoxicillin-cl avulanate (Augmentin) 875-125 MG tablet Take 1 (one) tablet by mouth 2 times daily for 10 days 20 tablet 08/12/19 25 025 Active Problems Problem Noted Date Diagnosed [...] Continue IO ppx. MDS (myelodysplastic syndrome) 03/13/2024 Resolved Problems Problem Noted Date Diagnosed Date [...] -continue LR- repeat lactic with AM labs Encounters Date Type Department Care Team Description 08/30/2024 8:09 AM CDT - 08/30/2024 11:59 PM CDT Hospital Encounter [facility] [address] [place] [phone] Timothy Banks MD Discharge Disposition: Home or Self Care 08/30/2024 Travel 08/29/2024 8:53 AM CDT - 08/29/2024 11:59 PM CDT Hospital Encounter [facility] [address] [place] [phone] Timothy Banks MD Discharge Disposition: Home or Self Care 08/29/2024 Travel 08/28/2024 8:55 AM CDT - 08/28/2024 11:59 PM CDT Hospital Encounter [facility] [address] [place] [phone] Timothy Banks MD Discharge Disposition: Home or Self Care 08/28/2024 Refill [facility] - Hematology/Oncology [address] [place] [phone] Cindy Garcia MD MEDICATION REFILL 08/28/2024 Travel 08/27/2024 8:54 AM CDT - 08/27/2024 11:59 PM CDT Hospital Encounter [facility] [address] [place] [phone] Timothy Banks MD Discharge Disposition: Home or Self Care 08/27/2024 Travel 08/26/2024 10:00 AM CDT Office Visit [facility] - Hematology/Oncology [address] [place] [phone] Stephanie Connolly APRN-FAISAL 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); At risk for long QT syndrome 08/26/2024 8:45 AM CDT - 08/26/2024 11:59 PM CDT Hospital Encounter [address] [address] Timothy Banks MD Discharge Disposition: Home or Self Care 08/26/2024 Travel 08/23/2024 2:30 PM CDT Office Visit [facility] - Cardiology [address] [phone] Tracey Pond APRN-TERMINAL OPERATOR SVT (supraventricular tachycardia) (HCC) (Primary Dx); On amiodarone therapy; PVC's (premature ventricular contractions); Syncope and collapse; Palpitations 08/23/2024 Travel 08/19/2024 10:00 AM CDT Office Visit [facility] - Hematology/Oncology [address] [place] [phone] Cindy Garcia MD 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) 08/19/2024 9:05 AM CDT - 08/19/2024 11:59 PM CDT Hospital Encounter [facility] [address] [place] [phone] Timothy Banks MD Discharge Disposition: Home or Self Care 08/19/2024 Travel 08/17/2024 Refill [facility] - Hematology/Oncology [address] [place] [phone] Cindy Garcia MD Refill Request 08/16/2024 Telephone [facility] - Hematology/Oncology [address] [place] [phone] Cindy Garcia MD Refill Request (See notes) 08/14/2024 Refill [facility] - Hematology/Oncology [address] [place] [phone] Cindy Garcia MD MEDICATION REFILL 08/14/2024 Refill [facility] - Hematology/Oncology [address] [place] [phone] Cindy Garcia MD MEDICATION REFILL 08/13/2024 Orders Only [facility] - Hematology/Oncology [address] [place] [phone] Cindy Garcia MD 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) 08/13/2024 Orders Only [facility] - Hematology/Oncology [address] [place] [phone] Cindy Garcia MD 08/13/2024 Orders Only [facility] - Hematology/Oncology [address] [place] [phone] Cindy Garcia MD 08/13/2024 Orders Only [facility] - Hematology/Oncology [address] [place] [phone] Cindy Garcia MD 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) 08/08/2024 11:34 AM CDT - 08/11/2024 6:29 PM CDT Hospital Encounter [facility] [address] [place] [address] Mustapha Hawkins MD Hazam, Randa, MD Akyuz Yesilyaprak, Kevser, MD Gandhi, Avi, MD Emergency Medicine Discharge Disposition: Home or Self Care 08/08/2024 Travel 08/08/2024 Telephone [facility] - Hematology/Oncology [address] [place] [phone] Nikole Chou RN Fever 08/08/2024 Telephone [facility] - Hematology/Oncology [address] [place] [phone] Cindy Garcia MD Medication Prior Auth Request 08/07/2024 Orders Only [facility] - Hematology/Oncology [address] [place] [phone] Cindy Garcia MD 08/05/2024 9:00 AM CDT Office Visit [facility] - Hematology/Oncology [address] [place] [phone] Stephanie Connolly APRN-TERMINAL OPERATOR 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); Neutropenia, unspecified type; At risk for long QT syndrome 08/05/2024 8:00 AM CDT - 08/05/2024 11:59 PM CDT Hospital Encounter [facility] [address] [place] [phone] Timothy Banks MD Discharge Disposition: Home or Self Care 08/05/2024 Travel 07/31/2024 Orders Only [facility] - Hematology/Oncology [address] [place] [phone] Cindy Garcia MD At risk for long QT syndrome 07/26/2024 2:40 PM CDT Office Visit [facility] - Cardiology [address] [phone] Kaushal Archer MD Palpitations (Primary Dx) 07/26/2024 1:00 PM CDT Office Visit [facility] - Cardiology [facility] [phone] Tracey Pond, ANITA-TERMINAL OPERATOR SVT (supraventricular tachycardia) (HCC) (Primary Dx); Acute myeloid leukemia 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); Syncope and collapse; PVC's (premature ventricular contractions) 07/26/2024 Orders Only [facility] - Hematology/Oncology [address] [place] [phone] Cindy Garcia MD 07/26/2024 Travel 07/16/2024 Refill [facility] - Hematology/Oncology [address] [place] [phone] Stephanie Connolly APRN-TERMINAL OPERATOR Refill Request 07/15/2024 9:16 AM CDT - 07/15/2024 11:59 PM CDT Hospital Encounter [facility] [address] [place] [phone] Cindy Garcia MD Discharge Disposition: Home or Self Care 07/15/2024 Travel 07/12/2024 9:00 AM CDT - 07/12/2024 11:59 PM CDT Hospital Encounter [facility] [address] [place] [phone] Timothy Banks MD Discharge Disposition: Home or Self Care 07/12/2024 Orders Only [facility] [address] [place] [address] Cindy Garcia MD 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) 07/11/2024 8:20 AM CDT - 07/11/2024 11:59 PM CDT Hospital Encounter [facility] [address] [place] [phone] Timothy Banks MD Discharge Disposition: Home or Self Care 07/11/2024 Travel 07/10/2024 8:35 AM CDT - 07/10/2024 11:59 PM CDT Hospital Encounter [facility] [address] [place] [phone] Timothy Banks MD Discharge Disposition: Home or Self Care 07/10/2024 Travel 07/09/2024 9:40 AM CDT Office Visit [facility] - Hematology/Oncology [address] [place] [phone] Stephanie Connolly APRN-FAISAL Acute myeloid leuk w multilin dysplasia, 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); SVT (supraventricular tachycardia) (HCC); Chronic kidney disease, unspecified CKD stage 07/09/2024 9:00 AM CDT - 07/09/2024 11:59 PM CDT Hospital Encounter [facility] [address] [place] [phone] Timothy Banks, Discharge Disposition: Home or Self Care 07/09/2024 Travel 07/04/2024 8:30 AM CDT - 07/04/2024 11:59 PM CDT Hospital Encounter [facility] [address] [place] [phone] Cindy Garcia MD Kobayashi, Laura, APRN-CNP Discharge Disposition: Home or Self Care 07/04/2024 Travel 07/02/2024 Telephone [facility] [address] [place] [phone] Lauren Little 07/02/2024 Orders Only [facility] - Hematology/Oncology [address] [place] [phone] 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 myeloid leukemia in adult 07/01/2024 9:40 AM CDT Office Visit [facility] - Hematology/Oncology [address] [place] [phone] Stephanie Connolly APRN-CNP 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 (Primary Dx); Neutropenia, unspecified type 07/01/2024 8:39 AM CDT - 07/01/2024 11:59 PM CDT Hospital Encounter [facility] [address] [place] [phone] Timothy Banks, Discharge Disposition: Home or Self Care 07/01/2024 Orders Only [facility] - Hematology/Oncology [address] [place] [phone] Nikole Chou RN 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 06/24/2024 9:40 AM CDT Office Visit [facility] - Hematology/Oncology [address] [place] [phone] Stephanie Connolly APRN-CNP 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 (Primary Dx); Neutropenia, unspecified type 06/24/2024 9:00 AM CDT - 06/24/2024 11:59 PM CDT Hospital Encounter [facility] [address] [place] [phone] Timothy Banks, Discharge Disposition: Home or Self Care 06/24/2024 Travel 06/18/2024 Refill [facility] - Hematology/Oncology [address] [place] [phone] Cindy Garcia MD Refill Request 06/17/2024 9:40 AM CDT Office Visit [facility] - Hematology/Oncology [address] [place] [phone] Stephanie Connolly APRN-CNP Acute myeloid leuk w multilin dysplasia, 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 Last Filed Vital Signs Vital Sign Reading Time Taken Comments Blood Pressure 135/80 08/30/2024 8:14 AM CDT Pulse 81 08/30/2024 8:14 AM CDT Temperature 36.2 C (97.2 F) 08/30/2024 8:14 AM CDT Respiratory Rate 18 08/30/2024 8:14 AM CDT Oxygen Saturation 100% 08/30/2024 8:14 AM CDT Inhaled Oxygen Concentration - - Weight 93.4 kg (205 lb 12.8 oz) 08/30/2024 8:14 AM CDT Height 180 cm (5' 10.87) 08/23/2024 1:47 PM CDT Body Mass Index 28.81 08/23/2024 1:47 PM CDT Plan of Treatment Upcoming Encounters Date Type Department Care Team (Late st Contact Info) Description 09/23/2024 9:00 AM CDT Appointment [facility] [address] [place] [phone] 09/23/2024 9:30 AM CDT Office Visit [facility] - Hematology/Oncology [address] [place] [phone] Cindy Garcia MD [address] [place] [phone] 09/24/2024 9:00 AM CDT Appointment [facility] [address] [place] [phone] 09/25/2024 8:30 AM CDT Appointment [facility] [address] [place] [phone] 09/26/2024 9:00 AM CDT Appointment [facility] [address] [place] [phone] 09/27/2024 8:30 AM CDT Appointment [facility] [address] [place] [phone] 11/22/2024 1:00 PM CDT Office Visit [facility] - Cardiology [address] [facility] [address] [place] [address] Kaushal Archer MD [address] [place] [phone] Health Maintenance Due Date Last Done Comments [...] this topic Medical Devices Implanted Type Area Lathe Operator Contact Lens Device Identifier Shelf Expiration Date Model / Serial / Lot Port Implinfn Powerport Clrvu Argd Kandy Implanted:Qty : 1 on 04/11/2024 by Davian Marshall MD at [facility] Catheters Right: Chest Wall [employer] [id number] 02/07/2025 [id number] / / [id number] Procedures Procedure Name Priority Date/Time Associated Diagnosis Comments DIFFERENTIAL MANUAL Routine 08/29/2024 8 :50 AM CDT Acute myeloid leuk w multilin dysplasia, 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) COMPREHENSIVE METABOLIC PANEL Routine 08/29/2024 8:50 AM CDT Acute myeloid leuk w multilin dysplasia, 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) CBC W AUTO DIFFERENTIAL Routine 08/29/2024 8:50 AM CDT Acute myeloid leuk w multilin dysplasia, 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) DIFFERENTIAL MANUAL Routine 08/26/2024 9 :09 AM CDT Acute myeloid leuk w multilin dysplasia, 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) COMPREHENSIVE METABOLIC PANEL Routine 08/26/2024 9:09 AM CDT Acute myeloid leuk w multilin dysplasia, 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) CBC W AUTO DIFFERENTIAL Routine 08/26/2024 9:09 AM CDT Acute myeloid leuk w multilin dysplasia, 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) EKG 12-LEAD Routine 08/23/2024 1:51 PM CDT SVT (supraventricular tachycardia) (HCC) DIFFERENTIAL MANUAL Routine 08/19/2024 9 :42 AM CDT Acute myeloid leuk w multilin dysplasia, 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) COMPREHENSIVE METABOLIC PANEL Routine 08/19/2024 9:42 AM CDT Acute myeloid leuk w multilin dysplasia, 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) CBC W AUTO DIFFERENTIAL Routine 08/19/2024 9:42 AM CDT Acute myeloid leuk w multilin dysplasia, 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) EKG 12-LEAD Routine 08/11/2024 12:16 PM CDT Neutropenic fever DIFFERENTIAL MANUAL Routine 08/11/2024 5 :46 AM CDT CBC W AUTO DIFFERENTIAL Routine 08/11/2024 5:46 AM CDT RENAL FUNCTION PANEL AM Draw 08/11/2024 5:46 AM CDT MAGNESIUM BLOOD Routine 08/11/2024 5:46 AM CDT DIFFERENTIAL MANUAL Routine 08/10/2024 4 :46 AM CDT CBC W AUTO DIFFERENTIAL Routine 08/10/2024 4:46 AM CDT RENAL FUNCTION PANEL AM Draw 08/10/2024 4:46 AM CDT MAGNESIUM BLOOD Routine 08/10/2024 4:46 AM CDT PT EVAL AND TREAT Routine 08/09/2024 10: 59 AM CDT OT EVAL AND TREAT Routine 08/09/2024 10: 59 AM CDT DIFFERENTIAL MANUAL Add on 08/09/2024 4 :50 AM CDT PHOSPHORUS BLOOD Routine 08/09/2024 4:50 AM CDT MAGNESIUM BLOOD Routine 08/09/2024 4:50 AM CDT CBC W/O DIFFERENTIAL Routine 08/09/2024 4:50 AM CDT BASIC METABOLIC PANEL (CALCIUM TOTAL) Routine 08/09/2024 4:50 AM CDT LACTIC ACID BLOOD REFLEX TO REPEAT Timed 08/08/2024 9:45 PM CDT URINALYSIS W/MICROSCOPIC NO CULTURE STAT 08/08/2024 9:16 PM CDT LACTIC ACID BLOOD REFLEX TO REPEAT Timed STAT 08/08/2024 6:46 PM CDT LACTIC ACID BLOOD REFLEX TO REPEAT Timed STAT 08/08/2024 2:34 PM CDT TROPONIN-I HIGH SENSITIVE REFLEX 1HOUR Timed 08/08/2024 2:[address] CHEST PE W ABD PELVIS W CONT STAT 08/08/2024 2:26 PM CDT Chest pain, unspecified type SARS-COV-2 (COVID-19)+INFLU A+B PCR RAPID STAT 08/08/2024 1:11 PM CDT CULTURE BLOOD Timed 08/08/2024 1:08 PM CDT PROCALCITONIN LEVEL STAT 08/08/2024 1 :03 PM CDT CK BLOOD STAT 08/08/2024 1:03 PM CDT LIPASE BLOOD STAT 08/08/2024 1:03 PM CDT LACTIC ACID BLOOD REFLEX TO REPEAT STAT 08/08/2024 1:03 PM CDT MAGNESIUM BLOOD STAT 08/08/2024 1:03 PM CDT TROPONIN-I HIGH SENSITIVE BASELINE + 1HR STAT 08/08/2024 1:03 PM CDT COMPREHENSIVE METABOLIC PANEL STAT 08/08/2024 1:03 PM CDT CBC W AUTO DIFFERENTIAL STAT 08/08/2024 1:03 PM CDT CULTURE BLOOD Timed 08/08/2024 1:03 PM CDT XR CHEST 2VW STAT 08/08/2024 12:15 PM CDT Chest pain, unspecified type EKG 12-LEAD STAT 08/08/2024 12:02 PM CDT Chest pain, unspecified type EKG 12-LEAD Routine 08/05/2024 9:00 AM CDT Acute myeloid leuk w multilin dysplasia, 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) MDS (myelodysplastic syndrome) (HCC) COMPREHENSIVE METABOLIC PANEL Routine 08/05/2024 8:36 AM CDT Acute myeloid leuk w multilin dysplasia, 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 Pathologist [facility] Neutrophil % 50 41 - 74 % 08/29/2024 9:58 AM CDT [facility] Lymphocyte % 37 17 - 47 % 08/29/2024 9:58 AM [facility] Monocyte % 13(H) 3 - 11 % 08/29/2024 9:58 AM [facility] Neutrophil Absolute 0.90(L) 1.60 - 7.50 x10E9/L 08/29/2024 9:58 AM [facility] Lymphocyte Absolute 0.67(L) 1.00 - 4.40 x10E9/L 08/29/2024 9:58 AM [facility] Monocyte Absolute 0.23 0.15 - 1.00 x10E9/L 08/29/2024 9:58 AM [facility] RBC Morphology REVIEWED 08/29/2024 9:58 AM [facility] Ovalocytes MODERATE(A) (none) 08/29/2024 9:58 AM [facility] Schistocytes MANY(A) (none) 08/29/2024 9:58 AM [facility] Blood BLOOD SPECIMEN / Unknown Venipuncture / Unknown 08/29/2024 8:50 AM CDT 08/29/2024 8:58 AM CDT us Cindy Garcia MD LAB - HEMATOLOGY ORDERABLES Jamila stern Result Performing Organization Address City/State/[facility] Co de Phone Number [address] [address], [facility] [phone] * (ABNORMAL) CBC WITH DIFFERENTIAL (08/29/2024 8:50 AM CDT) Only the most recent of14 resultswithin the time period is included. WBC 1.8(L) 4.0 - 10.7 x10E9/L 08/29/2024 9:58 AM [facility] RBC Count 3.97(L) 4.30 - 5.80 x10E12/L 08/29/2024 9:58 AM [facility] Hemoglobin 12.7(L) 13.3 - 17.5 g/dL 08/29/2024 9:58 AM [facility] Hematocrit 37.4(L) 38.7 - 51.1 % 08/29/2024 9:58 AM [facility] MCV 94.2 80.0 - 98.0 fL 08/29/2024 9:58 AM [facility] MCH 32.0 26.7 - 33.6 pg 08/29/2024 9:58 AM [facility] MCHC 34.0 31.7 - 36.3 g/dL 08/29/2024 9:58 AM [facility] RDW-CV 21.8(H) 11.3 - 14.8 % 08/29/2024 9:58 AM [facility] Platelet Count 125(L) 150 - 420 x10E9/L 08/29/2024 9:58 AM [facility] MPV 11.8(H) 7.8 - 11.4 fL 08/29/2024 9:58 AM [facility] Preliminary Absolute Neutrophil 0.67(L) 1.60 - 7.50 x10E9/L 08/29/2024 9:58 AM [facility] Comment:Preliminary ANC pend ing manual confirmation Blood BLOOD SPECIMEN / Unknown Venipuncture / Unknown 08/29/2024 8:50 AM CDT 08/29/2024 8:58 AM CDT us Cindy Garcia MD LAB - HEMATOLOGY ORDERABLES Jamila stern Result Performing Organization Address [facility]/State/ZIP Co de Phone Number [facility] [address] [id number], [facility] [phone] * (ABNORMAL) COMPREHENSIVE METABOLIC PANEL (08/29/2024 8:50 AM CDT) Only the most recent of11 resultswithin the time period is included. BUN 14 7 - 26 mg/dL 08/29/2024 9:43 AM [facility] Creatinine 1.13 0.71 - 1.16 mg/dL 08/29/2024 9:43 AM [facility] Sodium 140 136 - 145 mmol/L 08/29/2024 9:43 AM [facility] Potassium 4.1 3.5 - 4.5 mmol/L 08/29/2024 9:43 AM [facility] Chloride 108(H) 98 - 107 mmol/L 08/29/2024 9:43 AM [facility] CO2 25 22 - 29 mmol/L 08/29/2024 9:43 AM [facility] Glucose 79 70 - 99 mg/dL 08/29/2024 9:43 AM [facility] Calcium 9.3 8.4 - 10.2 mg/dL 08/29/2024 9:43 AM [facility] Protein Total 6.6 6.0 - 8.3 g/dL 08/29/2024 9:43 AM [facility] Albumin 4.2 3.4 - 5.0 g/dL 08/29/2024 9:43 AM [facility] Bilirubin Total 0.7 0.2 - 1.2 mg/dL 08/29/2024 9:43 AM [facility] Alkaline Phosphatase 122 40 - 150 U/L 08/29/2024 9:43 AM [facility] ALT 13 5 - 55 U/L 08/29/2024 9:43 AM [facility] AST 12 5 - 34 U/L 08/29/2024 9:43 AM [facility] Anion Gap 7 6 - 16 08/29/2024 9:43 AM [facility] BUN/Creatinine Ratio 12 7 - 23 08/29/2024 9:43 AM [facility] Osmolality Calculated 289 275 - 295 mOsm/kg 08/29/2024 9:43 AM [facility] Albumin/Globulin Ratio 1.8 1.1 - 2.3 08/29/2024 9:43 AM [facility] eGFR by CKD-EPI 66(L) >=90 mL/min/1.7 3 m2 08/29/2024 9:43 AM [facility] Blood BLOOD SPECIMEN / Unknown Venipuncture / Unknown 08/29/2024 8:50 AM [facility] 08/29/2024 8:58 AM [facility] us Cindy Garcia MD LAB - CHEMISTRY ORDERABLES Final Result [facility] [address] [place] [address], [facility] [phone] * EKG 12-Lead (08/23/2024 1:51 PM CDT) Only the most recent of5 resultswithin the time period is included. [facility] Ventricular Rate 71 BPM [facility] Atrial Rate 71 BPM [facility] P-R Interval 128 ms [facility] QRS Duration ms 126 ms [facility] Q-T Interval ms 426 ms [facility] QTC Calculation (Bezet) 462 ms [facility] Calculated P [place] 44 degrees [facility] Calculated R [place] 40 degrees [facility] Calculated T [place] 51 degrees [facility] Interpretation EKG SINUS RHYTHM WITH PREMATURE ATRIAL COMPLEXES RIGHT BUNDLE BRANCH BLOCK T WAVE ABNORMALITY, CONSIDER LATERAL ISCHEMIA ABNORMAL ECG WHEN COMPARED WITH ECG OF 11-AUG-2024 12:16, T WAVE INVERSION LESS EVIDENT IN LATERAL LEADS Confirmed by SHANTI MARTINEZ, DENA POWELL ([id number]) on 09/14/2024 6:38:47 PM [facility] 08/23/2024 1:51 PM CDT 09/14/2024 6:38 PM CDT Tracey Pond CARDIOTHORACIC ICU RN-TERMINAL OPERATOR ECG ORDERABLES Edited R esult - Final NIA JUAREZ * (ABNORMAL) RENAL FUNCTION PANEL (08/11/2024 5:46 AM CDT) Only the most recent of2 resultswithin the time period is included. [facility] BUN 9 7 - 26 mg/dL 08/11/2024 6:35 AM CDT [facility] Creatinine 0.97 0.71 - 1.16 mg/dL 08/11/2024 6:35 AM CDT [facility] Sodium 141 136 - 145 mmol/L 08/11/2024 6:35 AM CDT [facility] Potassium 3.8 3.5 - 4.5 mmol/L 08/11/2024 6:35 AM CDT [facility] Chloride 109(H) 98 - 107 mmol/L 08/11/2024 6:35 AM [facility] CO2 23 22 - 29 mmol/L 08/11/2024 6:35 AM [facility] Glucose 112(H) 70 - 99 mg/dL 08/11/2024 6:35 AM [facility] Albumin 3.1(L) 3.4 - 5.0 g/dL 08/11/2024 6:35 AM [facility] Calcium 8.7 8.4 - 10.2 mg/dL 08/11/2024 6:35 AM [facility] Phosphorus 3.2 2.8 - 5.1 mg/dL 08/11/2024 6:35 AM [facility] Anion Gap 9 6 - 16 08/11/2024 6:35 AM [facility] BUN/Creatinine Ratio 9 7 - 23 08/11/2024 6:35 AM [facility] Osmolality Calculated 291 275 - 295 mOsm/kg 08/11/2024 6:35 AM [facility] eGFR by CKD-EPI 79(L) >=90 mL/min/1.7 3 m2 08/11/2024 6:35 AM [facility] Blood BLOOD SPECIMEN / Unknown Lab Venipuncture / Unknown 08/11/2024 5:46 AM CDT 08/11/2024 6:04 AM CDT us Chip Lopez MD LAB - CHEMISTRY ORDERABLES Final Result [address] [address], [facility] [phone] * MAGNESIUM BLOOD (08/11/2024 5:46 AM CDT) Only the most recent of4 resultswithin the time period is included. Magnesium 1.9 1.6 - 2.6 mg/dL 08/11/2024 6:35 AM [facility] Blood BLOOD SPECIMEN / Unknown Lab Venipuncture / Unknown 08/11/2024 5:46 AM CDT 08/11/2024 6:04 AM CDT us Chip Lopez MD LAB - CHEMISTRY ORDERABLES Final Result Performing Organization Address City/[facility]/ZIP Co de Phone Number [facility] [address] [place] [address], [facility] [phone] * (ABNORMAL) CBC W/O DIFFERENTIAL (08/09/2024 4:50 AM CDT) WBC 0.5(LL) 4.0 - 10.7 x10E9/L 08/09/2024 9:26 AM [facility] RBC Count 3.20(L) 4.30 - 5.80 x10E12/L 08/09/2024 9:26 AM [facility] Hemoglobin 9.9(L) 13.3 - 17.5 g/dL 08/09/2024 9:26 AM [facility] Hematocrit 28.9(L) 38.7 - 51.1 % 08/09/2024 9:26 AM [facility] MCV 90.3 80.0 - 98.0 fL 08/09/2024 9:26 AM [facility] MCH 30.9 26.7 - 33.6 pg 08/09/2024 9:26 AM [facility] MCHC 34.3 31.7 - 36.3 g/dL 08/09/2024 9:26 AM [facility] RDW-CV 20.3(H) 11.3 - 14.8 % 08/09/2024 9:26 AM [facility] Platelet Count 69(L) 150 - 420 x10E9/L 08/09/2024 9:26 AM [facility] Blood BLOOD SPECIMEN / Unknown Venipuncture / Unknown 08/09/2024 4:50 AM CDT 08/09/2024 5:09 AM T Polly Palomino PA-C LAB - HEMATOLOGY ORDERA BLES Edited Result - Final Performing Organization Address City/[facility]/ZIP Co de Phone Number [facility] [address] [place] [address], [place] [phone] * (ABNORMAL) BASIC METABOLIC PANEL (CALCIUM TOTAL) (08/09/2024 4:50 AM CDT) BUN 9 7 - 26 mg/dL 08/09/2024 5:37 AM [facility] Creatinine 0.97 0.71 - 1.16 mg/dL 08/09/2024 5:37 AM [facility] Sodium 141 136 - 145 mmol/L 08/09/2024 5:37 AM [facility] Potassium 3.8 3.5 - 4.5 mmol/L 08/09/2024 5:37 AM [facility] Chloride 110(H) 98 - 107 mmol/L 08/09/2024 5:37 AM [facility] CO2 24 22 - 29 mmol/L 08/09/2024 5:37 AM [facility] Glucose 117(H) 70 - 99 mg/dL 08/09/2024 5:37 AM [facility] Calcium 8.6 8.4 - 10.2 mg/dL 08/09/2024 5:37 AM [facility] Anion Gap 7 6 - 16 08/09/2024 5:37 AM [facility] BUN/Creatinine Ratio 9 7 - 23 08/09/2024 5:37 AM [facility] Osmolality Calculated 292 275 - 295 mOsm/kg 08/09/2024 5:37 AM [facility] eGFR by CKD-EPI 79(L) >=90 mL/min/1.7 3 m2 08/09/2024 5:37 AM [facility] Blood BLOOD SPECIMEN / Unknown Venipuncture / Unknown 08/09/2024 4:50 AM CDT 08/09/2024 5:09 AM CDT us Polly HINSON-Scottie LAB - CHEMISTRY ORDERAB LES Final Result [facility] [address] [phone], [facility] [phone] * (ABNORMAL) PHOSPHORUS BLOOD (08/09/2024 4:50 AM CDT) Pathologist [facility] Phosphorus 2.7(L) 2.8 - 5.1 mg/dL 08/09/2024 5:37 AM CDT [facility] Blood BLOOD SPECIMEN / Unknown Venipuncture / Unknown 08/09/2024 4:50 AM CDT 08/09/2024 5:09 AM CDT Polly Palomino PA-C LAB - CHEMISTRY ORDERAB LES Final Result Performing Organization Address [facility]/ZIP Co de Phone Number [address] [address], [facility] [phone] * LACTIC ACID BLOOD REFLEX TO REPEAT (08/08/2024 9:45 PM CDT) Only the most recent of4 resultswithin the time period is included. Lactic Acid-Stat 1.5 <=2.0 mmol/L 08/08/2024 10:19 PM CDT [facility] Blood BLOOD SPECIMEN / Unknown Venipuncture / Unknown 08/08/2024 9:45 PM CDT 08/08/2024 9:52 PM CDT Pollo Wright MD LAB - CHEMISTRY ORDERABLES F inal Result Performing Organization Address [facility]/ZIP Co de Phone Number [address] [address], [place] [phone] * (ABNORMAL) URINALYSIS W/MICROSCOPIC NO CULTURE (08/08/2024 9:16 PM CDT) Color UA Colorless(A ) Yellow, Straw 08/08/2024 9:45 PM CDT [facility] Clarity UA Clear Clear 08/08/2024 9:45 PM CDT [facility] Glucose UA Normal Normal 08/08/2024 9:45 PM CDT [facility] Bilirubin UA Negative Negative 08/08/2024 9:45 PM CDT [facility] Ketone UA Negative Negative 08/08/2024 9:45 PM CDT [facility] Specific [place] UA 1.011 1.005 - 1.030 08/08/2024 9:45 PM CDT [facility] Blood UA Negative Negative 08/08/2024 9:45 PM CDT [facility] pH UA 6.0 5.0 - 9.0 pH 08/08/2024 9:45 PM CDT [facility] Protein UA Negative Negative 08/08/2024 9:45 PM CDT [facility] Urobilinogen UA Normal Normal mg/dL 08/08/2024 9:45 PM CDT [facility] Nitrite UA Negative Negative 08/08/2024 9:45 PM CDT [facility] Leukocyte Esterase UA Negative Negative 08/08/2024 9:45 PM CDT [facility] RBC UA 0-2 0 - 5 # /hpf 08/08/2024 9:45 PM CDT [facility] WBC UA 0-5 0 - 5 # /hpf 08/08/2024 9:45 PM T [facility] Bacteria UA None Seen None Seen 08/08/2024 9:45 PM T [facility] Squamous Epithelial Cells None Seen 0 - 5 /hpf 08/08/2024 9:45 PM T [facility] Urine URINE SPECIMEN OBTAINED BY CLEAN CATCH PROCEDURE / Unknown Collection / Unknown 08/08/2024 9:16 PM CDT 08/08/2024 9:25 PM CDT Manju Zuleta PA-C LAB - URINALYSIS ORDE JOCELIN Final Result Performing Organization Address [facility]/State/ZIP Co de Phone Number [facility] [address] [phone], [facility] [phone] * TROPONIN-I HIGH SENSITIVE REFLEX 1HOUR (08/08/2024 2:34 PM CDT) Troponin I High Sensitive 11 <=35 ng/L 08/08/2024 3:12 PM CDT [facility] Delta Troponin I HS 08/08/2024 3:12 PM CDT [facility] Comment:Delta value intentio bc not calculated. Baseline to 1 hour specimen collection interval exceeded. Blood BLOOD SPECIMEN / Unknown Venipuncture / Unknown 08/08/2024 2:34 PM CDT 08/08/2024 2:39 PM CDT Manju Zuleta PA-C LAB - CHEMISTRY ORDER JOVON Final Result [facility] [address] [address], [facility] [phone] * CT Chest Pe W Abd Pelvis W Cont (08/08/2024 2:26 PM CDT) Anatomical Region Laterality Modality Chest, Abdomen, Pelvis Computed Tomography 08/08/2024 2:20 PM CDT Impressions 08/08/2024 3:30 PM CDT Impression: 1.No evidence of pulmonary embolism. 2.Segmental wall thickening with surrounding mesenteric inflammatory changes in the left upper quadrant transverse colon concerning for diverticulitis. Recomment correlation with prior colonoscopies if available. Otherwise, recommend colonoscopy after treatment to rule out underlying malignancy. 3.Left atrial enlargement. 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 5.Enlarged prostate. Recommend correlation with PSA levels. > Dictated by Michele Chen MD, (vice president of consulting services). I, Erasmo Brown have personally reviewed and interpreted this examination/study. 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 COMPARISON: None. TECHNIQUE: CT of the chest was performed following the uneventful administration of Isovue 370 intravenous contrast according to a pulmonary embolism protocol. CT of the abdomen and pelvis was also performed during the portal venous phase according to standard protocol. Multiplanar reconstructions were created. Findings: Chest: Study Quality This examination for the diagnosis of pulmonary embolism is adequate. Pulmonary Arteries: No evidence of acute pulmonary embolism. Thoracic Vasculature: The ascending aorta is mildly ectatic measuring up to 3.6 cm in diameter. The descending aorta is normal in caliber. Lower Neck and Axillae: No axillary lymphadenopathy. A Port-A-Cath is in place in the right anterior chest wall terminating at the cavoatrial junction. Lungs: Linear atelectasis in the right lung base. No suspicious pulmonary nodules are identified. No pleural fluid or pneumothorax is present. Heart and Pericardium: Left atrial enlargement. No pericardial fluid or thickening. There is atherosclerotic obscuration of the coronary arteries. Mediastinum and Melodie: No enlarged lymph nodes are present. Calcified left perihilar lymph nodes. Abdomen/pelvis: Liver: Normal. Gallbladder and Bile Ducts: The gallbladder is surgically absent. No intrahepatic biliary ductal dilatation. 0.9 cm CBD, likely due to postcholecystectomy status. Spleen: Multiple calcified granulomas are noted in the spleen, likely sequelae of prior granulomatous disease. Pancreas: Normal. Adrenals: Normal. Kidneys: Nonobstructing stones bilaterally. No hydronephrosis or hydroureter. Gastrointestinal: Large hiatal hernia with half of the stomach above the level of the diaphragm. The small bowel loops are nondilated. Diverticulosis throughout the colon. Within the left upper quadrant along the transverse colon and there is segmental wall thickening with surrounding len mesentery and fat stranding concerning for diverticulitis. Underlying mass cannot be excluded. No abscess or fluid collection is seen. The appendix is not seen; however, no inflammatory changes are seen in the right lower quadrant. Mesentery/Peritoneum/Retroperitoneum: Subcentimeter mesenteric and retroperitoneal lymph nodes are nonspecific. No definitive adenopathy. Bladder: Normal. Reproductive Organs: The prostate is enlarged measuring up to 6 cm transversely. 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 An occluded stent is in place in the left iliac vein. Multiple resultant collateral vessels in the right retroperitoneal space and along the iliopsoas muscle. Bones: Bone windows demonstrate no suspicious lytic or blastic lesions. The visible osseous structures are intact. Degenerative changes are seen in the spine. There is exaggeration of the normal thoracic spinal curvature. Grade 1 retrolisthesis of L1 on L2. Bilateral L5 pars defect with resultant anterolisthesis of L5 on S1. Soft tissues: There is focal atrophy of the right hip adductor muscles. Procedure Note Erasmo Brown MD - 08/08/2024 PROCEDURE: CT CHEST PE W ABD PELVIS W CONT, DATE/TIME OF EXAM:08/08/2024 1:57 PM, LOCATION [facility] INDICATION: R07.9: Chest pain, unspecified type ADDITIONAL CLINICAL INFORMATION: Ordering Provider Reason For Exam: PE and diverticulits Additional: 78-year-old male with a history of AML and COPD presentingwith chest and abdominal pain. COMPARISON: None. TECHNIQUE: CT of the chest was performed following the uneventful administration of Isovue 370 intravenous contrast according to apulmonary embolism protocol. CT of the abdomen and pelvis was also performedduring the portal venous phase according to standard protocol. Multiplanar reconstructions were created. Findings: Chest: Study Quality This examination for the diagnosis of pulmonary embolism is adequate. Pulmonary Arteries: No evidence of acute pulmonary embolism. Thoracic Vasculature: The ascending aorta is mildly ectatic measuring up to 3.6 cm indiameter. The descending aorta is normal in caliber. Lower Neck and Axillae: No axillary lymphadenopathy. A Port-A-Cath is in place in the right anterior chest wall terminating at the cavoatrial junction. Lungs: Linear atelectasis in the right lung base. No suspicious pulmonarynodules are identified. No pleural fluid or pneumothorax is present. Heart and Pericardium: Left atrial enlargement. No pericardial fluid or thickening. There is atherosclerotic obscuration of the coronary arteries. Mediastinum and Melodie: No enlarged lymph nodes are present. Calcified left perihilar lymphnodes. Abdomen/pelvis: Liver: Normal. Gallbladder and Bile Ducts: The gallbladder is surgically absent. No intrahepatic biliary ductal dilatation. 0.9 cm CBD, likely due to postcholecystectomy status. Spleen: Multiple calcified granulomas are noted in the spleen, likely sequelaeof prior granulomatous disease. Pancreas: Normal. Adrenals: Normal. Kidneys: Nonobstructing stones bilaterally. No hydronephrosis or hydroureter. Gastrointestinal: Large hiatal hernia with half of the stomach above the level of the diaphragm. The small bowel loops are nondilated. Diverticulosisthroughout the colon. Within the left upper quadrant along the transverse colon and there is segmental wall thickening with surrounding len mesentery andfat stranding concerning for diverticulitis. Underlying mass cannot be excluded. No abscess or fluid collection is seen. The appendix is notseen; however, no inflammatory changes are seen in the right lower quadrant. Mesentery/Peritoneum/Retroperitoneum: Subcentimeter mesenteric and retroperitoneal lymph nodes arenonspecific. No definitive adenopathy. Bladder: Normal. Reproductive Organs: The prostate is enlarged measuring up to 6 cm transversely. 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 An occluded stent is in place in the left iliac vein. Multiple resultant collateral vessels in the right retroperitoneal space and along the iliopsoas muscle. Bones: Bone windows demonstrate no suspicious lytic or blastic lesions. The visible osseous structures are intact. Degenerative changes are seen inthe spine. There is exaggeration of the normal thoracic spinal curvature.Grade 1 retrolisthesis of L1 on L2. Bilateral L5 pars defect with resultant anterolisthesis of L5 on S1. Soft tissues: There is focal atrophy of the right hip adductor muscles. Impression: 1.No evidence of pulmonary embolism. 2.Segmental wall thickening with surrounding mesenteric inflammatory changes in the left upper quadrant transverse colon concerning for diverticulitis. Recomment correlation with prior colonoscopies if available. Otherwise, recommend colonoscopy after treatment to rule out underlying malignancy. 3.Left atrial enlargement. 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 5.Enlarged prostate. Recommend correlation with PSA levels. > Dictated by Michele Chen MD, (vice president of consulting services). IErasmo have personally reviewed and interpreted this examination/study. > Interpreting Provider: Erasmo Brown on 08/08/2024 3:30 PM us Mustapha Hawkins MD CT ORDERABLES Final Result * SARS-COV-2 (COVID-19)+INFLU A+B PCR RAPID (08/08/2024 1:11 PM CDT) COVID-19 PCR Not detected Not detected 08/09/19 25 2:07 PM CDT [facility] Influenza A Rapid DAGO Not Detected Not Detected 08/08/2024 2:07 PM CDT [facility] Influenza B DAGO Rapid Not Detected Not Detected 08/08/2024 2:07 PM CDT [facility] Microbiology SPECIMEN FROM NASOPHARYNGEAL STRUCTURE / Unknown Collection / Unknown 08/08/2024 1:11 PM CDT 08/08/2024 1:28 PM CDT Narrative [facility] - 08/08/2024 2:07 PM CDT Influenza assay performed by Nucleic Acid Amplification. Results do not exclude the possibility of a mixed viral infection. NOTE: Detecting and identifying specific viral nucleic acids from individuals exhibiting signs and symptoms of respiratory infection aids in the diagnosis of respiratory infection, if used in conjunction with other clinical and laboratory findings. The results of this test should not be used as the sole basis for diagnosis, treatment, or patient management decisions. This nucleic acid amplification assay performance was validated by [facility]. This test has been authorized by the Food and Drug administration (FDA)under an Emergency Use Authorization (EUA). This test has been validated in accordance with the FDA's guidance document Policy for Diagnostic Testing in Laboratories Certified to perform High Complexity Testing under CLIA prior to Emergency Use Authorization for Coronavirus Disease-2019 during the Public Health Emergency issued on June 08, 2019. FDA independent review of this validation is pending. This test is only authorized for the duration of time the declaration that circumstances exist justifying the authorization of emergency use of in vitro diagnostic tests for detection of SARS-CoV-2 virus and/or diagnosis of COVID-19 infection under section 564(b)(1) of the Act, 21 U.S.C 360bbb-3 (b)(1), unless the authorization is terminated or revoked sooner. Fact Sheets for this EUA assay are available upon request. Manju Zuleta PA-C LAB - MICROBIOLOGY OR DERABLES Final Result [facility] [address] [phone], [facility] [phone] * CULTURE BLOOD (08/08/2024 1:08 PM CDT) Only the most recent of2 resultswithin the time period is included. Culture No growth day 5 [facility] 08/13/2024 5:02 PM CDT [facility] Blood PERIPHERAL BLOOD / Unknown Venipuncture / Unknown 08/08/2024 1:08 PM CDT 08/08/2024 1:11 PM CDT us Mustapha Hawkins MD LAB - MICROBIOLOGY ORDERABLES Final Result Performing Organization Address [facility]/ZIP Co de Phone Number [facility]CRO[facility] [address] [place] [address], [facility] [phone] * (ABNORMAL) PROCALCITONIN LEVEL (08/08/2024 1:03 PM CDT) PROCALCITONIN 0.22(H) <=0.10 ng/mL 08/08/2024 2:08 PM CDT [facility] Blood BLOOD SPECIMEN / Unknown Venipuncture / Unknown 08/08/2024 1:03 PM CDT 08/08/2024 1:11 PM CDT Narrative [facility] - 08/08/2024 2:08 PM CDT The change in procalcitonin (PCT) concentration over time provides support in decision making on antibiotic discontinuation for suspected or confirmed septic patients. Follow-up samples should be tested once every 1-2 days based upon physician discretion taking into account the patient s evolution and progress. Consider discontinuation of antibiotic therapy if the PCT current is <= 0.5 ng/mL or if the delta PCT is > 80%. Duration of antibiotics should not be determined solely on PCT; established guidelines for the indication should be followed. PCT peak: Highest observed PCT concentration PCT current: Most recent PCT concentration Calculate delta PCT using the following equation: Delta PCT = PCT Peak PCT current X 100% PCT Peak The Change in Procalcitonin Calculator is available at [email or web address] If clinical picture has not improved and PCT remains high, reevaluate and consider treatment failure or other causes. us Mustapha Hawkins MD LAB - CHEMISTRY ORDERABLES Fin al Result Performing Organization Address City/[facility]/ZIP Co de Phone Number [facility] [address] [place] [phone], [facility] [phone] * TROPONIN-I HIGH SENSITIVE BASELINE + 1HR (08/08/2024 1:03 PM CDT) [facility] Troponin I High Sensitive 14 <=35 ng/L 08/08/2024 1:52 PM CDT [facility] Blood BLOOD SPECIMEN / Unknown Venipuncture / Unknown 08/08/2024 1:03 PM CDT 08/08/2024 1:13 PM CDT Manju Zuleta PA-C LAB - CHEMISTRY ORDER JOVON Final Result Performing Organization Address City/[facility]/ZIP Co de Phone Number [address] [address], [facility] [phone] * LIPASE BLOOD (08/08/2024 1:03 PM CDT) [facility] Lipase 16 8 - 78 U/L 08/08/2024 1:46 PM CDT [facility] Blood BLOOD SPECIMEN / Unknown Venipuncture / Unknown 08/08/2024 1:03 PM CDT 08/08/2024 1:13 PM CDT Narrative [facility] - 08/08/2024 1:46 PM CDT Lipase results from the [employer] Alinity analyzer may not be comparable with other methodologies. us Mustapha Hawkins MD LAB - CHEMISTRY ORDERABLES Fin al Result [address] [address], [facility] [phone] * (ABNORMAL) CK BLOOD (08/08/2024 1:03 PM CDT) [facility] CK Total 18(L) 30 - 200 U/L 08/08/2024 1:46 PM CDT [facility] Blood BLOOD SPECIMEN / Unknown Venipuncture / Unknown 08/08/2024 1:03 PM CDT 08/08/2024 1:13 PM CDT us Mustapha Hawkins MD LAB - CHEMISTRY ORDERABLES Fin al Result [facility] [place] [address], [facility] [phone] * XR CHEST 2VW (08/08/2024 12:15 PM CDT) Anatomical Region Laterality Modality Chest Digital Radiogra phy 08/08/2024 1:01 PM CDT Narrative 08/08/2024 1:09 PM CDT PROCEDURE: XR CHEST 2VW, DATE/TIME OF EXAM: 08/08/2024 12:42 PM, LOCATION [facility] INDICATION: R07.9: Chest pain, unspecified type ADDITIONAL CLINICAL INFORMATION: Ordering Provider Reason For Exam: CHEST PAIN COMPARISON: None. TECHNIQUE: Frontal and lateral radiograph of the chest. FINDINGS/IMPRESSION: Right internal jugular approach Port-A-Cath tip terminates at the superior atriocaval junction. Bibasilar opacities, likely atelectasis. Moderate hiatal hernia. There is no pleural effusion or pneumothorax. The cardiomediastinal silhouette is normal. The visible bony thorax is intact. Cholecystectomy clips. Report dictated by Jaydon Umaña MD, (Electronic Service Technician). IFredo MD have personally reviewed and interpreted this examination/study. > Interpreting Provider: Fredo Pearson MD on 08/08/2024 1:09 PM Procedure Note Fredo Pearson MD - 08/08/2024 PROCEDURE: XR CHEST 2VW, DATE/TIME OF EXAM: 08/08/2024 12:42 PM, LOCATION [facility] INDICATION: R07.9: Chest pain, unspecified type ADDITIONAL CLINICAL INFORMATION: Ordering Provider Reason For Exam: CHEST PAIN COMPARISON: None. TECHNIQUE: Frontal and lateral radiograph of the chest. FINDINGS/IMPRESSION: Right internal jugular approach Port-A-Cath tip terminates at thesuperior atriocaval junction. Bibasilar opacities, likely atelectasis. Moderate hiatal hernia. Thereis no pleural effusion or pneumothorax. The cardiomediastinal silhouette is normal. The visible bony thorax is intact. Cholecystectomy clips. Report dictated by Jaydon Umaña MD, (Electronic Service Technician). I, Fredo Pearson MD have personally reviewed and interpreted this examination/study. > Interpreting Provider: Fredo Pearson MD on 08/08/2024 1:09 PM Manju Kaykay Cross PA-C DIAGNOSTIC IMAGING OR DERABLES Final Result * FLOW CYTOMETRY BONE MARROW (07/04/2024 10:40 AM CDT) Case Report Flow Cytometry Case: [id number] Authorizing Provider: Eve Goyal APRN-CNP Collected: 07/04/2024 10:40 AM Ordering Location: [facility] Received: 07/04/2024 10:43 AM Pathologist: Guillermo Brown MD Specimen: Bone Marrow 07/09/2024 10:34 AM CDT [facility] Addendum 1 Minimal residual disease flow cytometry performed at [facility] is negative for an abnormal myeloid progenitor population. 07/09/2024 10:34 AM CDT [facility] Addendum electronically signed by Guillermo Brown MD on 07/09/2024 at 1034 CDT Final Diagnosis Bone marrow, flow cytometry: - No significant B-cell or blast population detected 07/09/2024 10:34 AM CDT [facility] at 1616 CDT Flow Cytometry Interpretation Viability: 91% B-cells: no significant population T-cells: not increased Blasts: not increased, <1% of overall cellularity MRD sent: Yes A bone marrow aspirate smear prepared from the flow cytometry specimen has been reviewed for quality analyst/technical writer purposes. 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 A-2 Flow CD10 A-3 Flow CD13 A-5 Flow CD20 A-11 Flow CD2 A-13 Flow CD14 A-16 Flow CD117 A-17 Flow CD11b A-18 Flow CD11c A-1 Flow CD5 A-4 Flow CD19 A-6 Flow CD33 A-7 Flow CD34 A-8 Flow CD45 A-12 Flow CD7 A-14 Flow CD56 A-15 Flow CD64 A-9 Ellenton+CD19+ A-10 Lambda+CD19+ A-19 Flow HLA-DR 07/09/2024 10:34 AM [facility] Pathologist Location at [facility] 07/09/2024 10:34 AM [facility] Disclaimer Test performed at [facility], [address] [place] [address], [facility]. *The established laboratory minimum viability is 70%. [...] high complexity clinical testing. 07/09/2024 10:34 AM [facility] Embedded Images 10:34 AM [facility] Pathology/Cytolo gy BONE MARROW SPECIMEN / Unknown Collection / Unknown 07/04/2024 10:40 AM CDT 07/04/2024 10:43 AM CDT Eve Goyal APRN-TERMINAL OPERATOR LAB - PATHOLOGY/CYTOLOG Y ORDERABLES Edited Result - Final [facility] [address] [place] [address]. [place] [address], [facility] [phone] * BONE MARROW BIOPSY (STL) (07/04/2024 10:40 AM CDT) Case Report Bone Marrow Patholog y Report Case: [id number] Authorizing Provider: Cindy Garcia MD Collected: 07/04/2024 10:40 AM Ordering Location: [facility] - Received: 07/04/2024 10:43 AM Hematology/Oncology Pathologist: Guillermo Brown MD Specimens: A) - Bone Marrow B) - Bone Marrow Core C) - Bone Marrow Aspirate D) - Blood Peripheral 07/05/2024 3:56 PM CDT [facility] Final Diagnosis Bone marrow, aspirate, clot section, and core biopsy: - Normocellular marrow with maturing trilineage hematopoiesis. - No acute leukemia seen. - See description. Peripheral blood smear: - Bicytopenia. - See description. 07/05/2024 3:56 PM CDT [facility] at 1556 CDT AP Comment Immunohistochemistry is performed to assess staining cells in an architectural context: CD34 and CD117 are negative for increased blasts (<2% of marrow cellularity for both markers). 07/05/2024 3:56 PM CDT [facility] Peripheral Smear Description RBC: normocytic anemia. WBC: leukopenia with absolute neutropenia and lymphopenia. Platelets: normal in number and morphology. 07/05/2024 3:56 PM CDT [facility] Bone Marrow Aspirate Differential [...] stain): no ring sideroblasts. 07/05/2024 3:56 PM CDT [facility] Bone Marrow Core [...] morphology: peripheral blood only. 07/05/2024 3:56 PM [facility] Flow Cytometry Summary Bone marrow, flow cytometry ([id number]): - No significant B-cell or blast population detected 07/05/2024 3:56 PM [facility] Clinical History AML 07/05/2024 3:56 PM [facility] Gross Description The requisition and specimen(s) are identified with the patient's name, Russ Kern. Received fresh, specimen A, clot is [...] B1 following a 1 hour decalicifcation in [employer]. IKMarjorie 07/05/2024 3:56 PM [facility] Pathologist Location at [facility] 07/05/2024 3:56 PM [facility] Disclaimer The performance characteristics of all immunohistochemical and indirect immunofluorescence stains (if any) cited in this report were determined by the Histopathology Laboratory of [facility]. Some of these tests were developed [...] the attending (teaching) pathologist. 07/05/2024 3:56 PM [facility] Embedded Images 07/05/2024 3:56 PM [facility] Pathology/Cytology PERIPHERAL BLOOD / [...] 10:40 AM CDT 07/04/2024 2:04 PM CDT Cindy Garcia MD LAB - PATHOLOGY/CYTOLOGY ORDERAB LES Final Result [facility] [address] [facility] [place] [address], [facility] [phone] * LAB MISC TEST (NOT BLOOD) (07/04/2024 10:40 AM CDT) Only the most recent of2 resultswithin the time period is included. Test Name AML Panel + CEP8 + [id number] 07/13/2024 6:39 AM CDT [facility] REF [facility] NON INTERF Test Result See Scanned Report 07/13/2024 6:39 AM CDT [facility] REF [facility] NON INTERF Comment Ref Lab [facility] 07/13/2024 6:39 AM CDT [facility] REF [facility] NON INTERF Other BONE MARROW SPECIMEN / Unknown Collection / Unknown 07/04/2024 10:40 AM CDT 07/04/2024 11:06 AM CDT Eve Goyal APRN-TERMINAL OPERATOR LAB - BODY FLUID ORDERA BLES Final Result [facility] REF [facility] NON INTERF [address] [place] [address], [facility] [phone] * CHROMOSOME ANALYSIS BONE MARROW PANEL (07/04/2024 10:40 AM CDT) Pathologist [facility] Chromosome Analysis Bone Marrow See Note Normal 07/13/2024 10:09 AM CDT [facility] ([facility]) Comment: Test Performed: Chromosome Analysis Specimen Type: Bone Marrow Indication for Testing: Acute myeloid leukemia with multilineage dysplasia, not having achieved remission Number of cells counted: 6 Number of cells analyzed: 6 Number of cells karyotyped: 6 ISCN band level: 400 Banding method: G-Banding [...] reviewed and approved by Nabila Gonzalez, PhD, [facility] This result has been reviewed and approved by Emily Street MD A portion of this analysis was performed at the following location(s): [id number] [facility] INTERPRETIVE INFORMATION: Chromosome Analysis, Bone Marrow This test was developed and its performance characteristics determined by [facility]. It has not been cleared or approved by the [place] Food and Drug Administration. This test was performed in a CLIA certified laboratory and is intended for clinical purposes. [facility] Chromosome Analysis Bone Marrow See Note 07/13/2024 10:09 AM CDT [facility] ([facility]) Comment: Authorized individuals can access the [employer] Enhanced Report with an [employer] Connect account using the following link. Your local lab can assist you in obtaining the patient report if you don't have a Connect account. [email or web address] Performed By: [facility] [address] [place] [address] Field Clerk: Uche Morley MD, PhD CLIA Number: [id number] Bone marrow BONE MARROW SPECIMEN / Unknown 07/04/2024 10:40 AM CDT 07/04/2024 10:43 AM CDT Eve Goyal CARDIOTHORACIC ICU RN-TERMINAL OPERATOR LAB - PATHOLOGY/CYTOLOG Y ORDERABLES Final Result [facility] ([facility]) [address] [place] [address], [facility] from Last 3 Months Insurance [id number] [id number] AETNA MEDICARE ADV [id number] [id number] [id number] [id number] Advance Directives * Full Code (Latest Code Status on File) Date Activated Date Inactivated Comments 08/08/2024 4:19 PM 08/11/2024 7:29 PM * Full Code Date Activated Date Inactivated Comments 03/13/2024 9:41 PM 03/23/2024 2:56 PM Care Teams Creping Machine Operator Relationship Specialty Start Date End Date Timothy Banks MD [address] [place] [address] PCP - General 10/19/18 Cindy Garcia MD [address] [place] [address] Chemist Steroids/Oncologis t Hematology and Oncology 03/24/24
--- OUTSIDE RECORDS SUMMARY | 2024-09-16 10:13 | XMS_ITS | Clinical Summary ---
Author Organization [facility] Meka Hayes Address [address] [place] [address] Care Team Providers Care Weight Training Instructor Name Role Phone Timothy Banks MD Primary Care Provider [phone] Allergies Active Allergy Reactions Criticality Noted Date [...] Encounters Date Type Department Care Team Description 09/16/2024 Orders Only [facility] Oncology and Hematology - [place] [address] [place] [address] Frank Singh MD 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) 09/13/2024 Orders Only [facility] Oncology and Hematology - [place] [address] [place] [address] Frank Singh MD 09/10/2024 Orders Only [facility] Oncology and Hematology - [place] [address] [place] [address] Frank Singh MD 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) 09/09/2024 Orders Only [facility] Oncology and Hematology - [place] [address]indy [address] [place] [phone] Frank Singh MD 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) 09/03/2024 Orders Only [facility] Oncology and Hematology - [place] [address] [place] [phone] Frank Singh MD 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) 09/02/2024 Orders Only [facility] Oncology and Hematology - [place] [address] [place] [id number] Frank Singh MD 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) 08/29/2024 External Device Data STL ABSTRACTION Provider, Abstract 08/27/2024 External Device Data STL ABSTRACTION Provider, Abstract 08/27/2024 Orders Only [facility] Oncology and Hematology - [place] [address] [place] [phone] Frank Singh MD 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) 08/26/2024 Orders Only [facility] Oncology and Hematology - [place] [address] [place] [address] Frank Singh MD 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) 08/20/2024 Orders Only [facility] Oncology and Hematology - [place] [address] [place] [id number] Frank Singh MD 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) 08/19/2024 Orders Only [facility] Oncology and Hematology - [place] [address] [place] [address] Frank Singh MD 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) 08/13/2024 Orders Only [facility] Oncology and Hematology - [place] [address] [place] [address] Frank Singh MD 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) 08/12/2024 Orders Only [facility] Oncology and Hematology - [place] [address] [place] [address] Frank Singh MD 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) 08/06/2024 Orders Only [facility] Oncology and Hematology - [place] [address] [place] [address] Frank Singh MD 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) 08/05/2024 Orders Only [facility] Oncology and Hematology - [place] [address] [place] [address] Frank Singh MD 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) 07/31/2024 Orders Only [facility] Oncology and Hematology - [place] [address] [place] [address] Frank Singh MD 07/30/2024 Orders Only [facility] Oncology and Hematology - [place] [address] [place] [phone] Frank Singh MD 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) 07/29/2024 Orders Only [facility] Oncology and Hematology - [place] [address] [place] [phone] Frank Singh MD 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) 07/24/2024 Orders Only [facility] Oncology and Hematology - [place] [address] [place] [address] Frank Singh MD 07/23/2024 Orders Only [facility] Oncology and Hematology - [place] [address] [place] [address] Frank Singh MD 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) 07/22/2024 Orders Only [facility] Oncology and Hematology - [place] [address] [place] [phone] Frank Singh MD 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) 07/16/2024 Orders Only [facility] Oncology and Hematology - [place] [address] Frank Singh MD 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) 07/15/2024 Orders Only [facility] Oncology and Hematology - [place] [address] [place] [phone] Frank Singh MD 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) 07/09/2024 Orders Only [facility] Oncology and Hematology - [place] [address] [place] [phone] Frank Singh MD 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) 07/08/2024 Orders Only [facility] Oncology and Hematology - [place] [address] [place] [phone] Frank Singh MD 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) 07/02/2024 Orders Only [facility] Oncology and Hematology - [place] [address] [place] [phone] Frank Singh MD 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) 07/01/2024 Orders Only [facility] Oncology and Hematology - [place] [address] [place] [address] Frank Singh MD 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) 06/26/2024 External Device Data STL ABSTRACTION Provider, Abstract 06/25/2024 Orders Only [facility] Oncology and Hematology - [place] [address] [place] [phone] Frank Singh MD 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) 06/24/2024 Orders Only [facility] Oncology and Hematology [facility] [address] [place] [address] Frank Singh MD 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) 06/18/2024 Orders Only [facility] Oncology and Hematology [facility] [address] [place] [address] Frank Singh MD 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) 06/17/2024 Orders Only [facility] Oncology and Hematology [facility] [address] [place] [address] Frank Singh MD 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) from Last 3 Months Family History Medical [...] Sex Assigned at Male 04/05/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 Legal Sex Male 10:53 AM CDT Gender Identity Male 04/05/2024 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 Sexual Orientation Not on file Last Filed [...] 2023-2 5 season) 2023 04/14/2021 [place] ([place] Preventative Visit/Annual Wellness Visit 04/10/2024 DTAP/TDAP/TD VACCINES (2 - T d or Tdap) 09/17/2028 09/17/2018 PNEUMOCOCCAL VACCINE 50+ YEARS Completed 09/17/2018 , 08/27/2015 Procedures Procedure Name Priority Date/Time Associated Diagnosis Comments CBC WITH DIFFERENTIAL Routine 09/06/2024 12:09 PM CDT BASIC METABOLIC PANEL Routine 09/06/2024 12:08 PM CDT BASIC METABOLIC PANEL Routine 07/31/2024 3:14 PM CDT BASIC METABOLIC PANEL Routine 07/23/2024 7:58 AM CDT CBC WITH DIFFERENTIAL Routine 06/20/2024 11:49 AM CDT BASIC METABOLIC PANEL Routine 06/20/2024 11:41 AM CDT from Last 3 Months Results * CBC WITH DIFFERENTIAL (09/06/2024 12:09 PM CDT) Only the most recent of2 resultswithin the time period is included. Blood us Frank Singh MD HEMATOLOGY ORDERABLES Final Res ult * BASIC METABOLIC PANEL (09/06/2024 12:08 PM CDT) Only the most recent of4 resultswithin the time period is included. Blood us Frank Singh MD CHEMISTRY ORDERABLES Final Resu lt from Last 3 Months Insurance [employer] O MCR Care Teams Weight Training Instructor Relationship Specialty Start Date End Date Timothy Banks MD [address] [place] [address] PCP - General Family Practice 02/01/24
--- OUTSIDE RECORDS SUMMARY | 2024-09-16 10:13 | XMS_ITS | Encounter Summary ---
Author Organization [facility] Address [address] [place] [address] Phone Care Team Providers Care Engagement Lead Name Role Phone Timothy Banks MD Primary Care Provider + [phone] Encounter Details Date Type Department Care Team (Late st Contact Info) Description 08/25/2017 Orders Only [facility] ProviderDusty MD [address] [place] [address] Social History Tobacco Use Types Packs/Day Years Used Date Smoking Tobacco: Never Smokeless Tobacco: Never Alcohol Use Standard Drinks/Week Comments Yes 0 (1 standard drink = 0.6 oz pur e alcohol) Sex and Gender Information Value Date Recorded Sex Assigned at Not on file Legal Sex Male 4:19 AM WIND OPERATIONS SUPERVISOR Gender Identity Male 01/12/2020 7:43 PM [...] on filedocumented in this encounter Care Teams Engagement Lead Relationship Specialty Start Date End Date Timothy Banks MD PCP - General 07/08/16 documented as of this encounter
--- OUTSIDE RECORDS SUMMARY | 2024-09-16 10:13 | XMS_ITS | Encounter Summary ---
Author Organization [facility] Address [address] [place] [address] Phone Care Team Providers Care Mine Motor Engineer Name Role Phone Timothy Banks MD Primary Care Provider Encounter Details Date Type Department Care Team (Late st Contact Info) Description 01/25/2024 Telephone [facility] Cardiology [address] [facility] [address] [place] [address] [place] [address] Alberto Gallegos MD [address] [place] [address] Social History Tobacco Use Types Packs/Day Years Used Date Smoking Tobacco: Never Smokeless Tobacco: Never Alcohol Use Standard Drinks/Week Comments Yes 0 (1 standard drink = 0.6 oz pur e alcohol) Sex and Gender Information Value Date Recorded Sex Assigned at Not on file Legal Sex Male 4:[address] 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
--- OUTSIDE RECORDS SUMMARY | 2024-09-16 10:14 | XMS_ITS | Clinical Summary ---
Author Organization [facility] Address [address] [place] [address] Phone Care Team Providers Care Crisis Intervention Specialist Name Role Phone Timothy Banks MD Primary Care Provider [phone] Allergies No known active allergies Medications Cholecalciferol [...] AM MDT Legal Sex Male 9:10 AM [facility] Gender Identity Male 11/09/2019 9:17 AM [...] 9:06 AM CDT Height 188 cm (6' 2) 11/22/2021 9:06 AM CDT Body Mass Index 32.35 11/22/2021 9:06 AM CDT Plan of Treatment Health Maintenance Due Date Last Done Comments COVID-19 Vaccine (2023-2 5 season) 2023 04/14/2021 Influenza Vaccine (Season Ended) 2024 12/09/2020, 01/09/2020, 01/25/2019, Additional history exists Pneumococcal PPSV23/PCV13 65 + Years / Low and Medium Risk Completed 09/17/2018, 08/27/2015 Insurance [employer] MEDICARE Care Teams Crisis Intervention Specialist Relationship Specialty Start Date End Date Timothy Banks MD [address] [place] [id number] PCP - General Family Medicine 11/14/18
--- OUTSIDE RECORDS SUMMARY | 2024-09-16 10:14 | XMS_ITS | Clinical Summary ---
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 Gender Identity Not on file Sexual Orientation Not on file Plan of Treatment Health Maintenance Due Date Last Done Comments Hepatitis C Virus (HCV) Screening 1945 Respiratory Syncytial Virus (RSV) Immunization (Adult) (1 - 1-dose 75+ series) 11/04/2019 SARS-COV-2 Immunization ( season) 2023 04/14/2021, 06/25/2020, 06/02/2020 Influenza Immunization (Season Ended) 2024 11/30/2020, 01/09/2020, 01/04/2020, Additional history exists DTaP/Tdap/Td Immunization Discontinued 09/17/2018 Pneumococcal Immunization (50+ years) Completed 09/17/2018, 08/27/2015 TdaP Immunization Completed 09/17/2018 Zoster Immunization Completed 03/08/2020, 0 Hepatitis B Immunization Aged Out No longer eligible based on patient's age to complete this topic Human Papillomavirus (HPV) Immunization Aged Out No longer eligible based on patient's age to complete this topic Meningococcal Immunization (ACWY) Aged Out No longer eligible based on patient's age to complete this topic Rotavirus Immunization Aged Out No lo nger eligible based on patient's age to complete this topic
--- OUTSIDE RECORDS SUMMARY | 2024-09-16 10:14 | XMS_ITS | Encounter Summary ---
Author Organization [facility] [employer] [facility] Address [address] [place] [address] Care Team Providers Care Tier Lift Truck Operator Name Role Phone Timothy Banks MD Primary Care Provider [phone] Encounter Details Date Type Department Care Team (Late st Contact Info) Description 09/16/2024 Orders Only [facility] Oncology and Hematology - [place] [address] [place] [address] [address] [place] [address] Frank Singh MD [address] [facility] [address] [place] [address] 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) Social History Tobacco Use Types Packs/Day Years Used Date Smoking Tobacco: Never Smokeless Tobacco: Never Alcohol Use Standard Drinks/Week Comments Yes 0 (1 standard drink = 0.6 oz pur e alcohol) Very Ocasionally Sex and Gender Information Value Date Recorded Sex Assigned at Male 04/05/2024 3:07 PM YARN SKEINS EXAMINER Legal Sex Male 10:53 AM CDT Gender Identity Male 04/05/2024 3:07 PM YARN SKEINS EXAMINER Sexual Orientation Not on file documented as of this encounter Plan of Treatment Not on file documented as of this encounter Visit Diagnoses Diagnosis 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) documented in this encounter Care Teams Tier Lift Truck Operator Relationship Specialty Start Date End Date Timothy Banks MD [address] [place] [address] PCP - General Family Practice 02/01/24 documented as of this encounter
--- OUTSIDE RECORDS SUMMARY | 2024-09-16 10:14 | XMS_ITS | Encounter Summary ---
Author Organization [facility] [employer] [facility] Address [address] [place] [address] Care Team Providers Care Roof Truss Builder Name Role Phone Timothy Banks MD Primary Care Provider [phone] Encounter Details Date Type Department Care Team (Late st Contact Info) Description 09/13/[address] 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 Legal Sex Male 10:53 AM CDT Gender Identity Male 04/05/2024 3:07 PM EDGING MACHINE CATCHER Sexual Orientation Not on file documented as of this encounter Plan of Treatment Not on file documented as of this encounter Procedures Procedure Name Priority Date/Time Associated Diagnosis Comments CBC WITH DIFFERENTIAL Routine 09/06/2024 12:09 PM CDT BASIC METABOLIC PANEL Routine 09/06/2024 12:08 PM CDT documented in this encounter Results * CBC WITH DIFFERENTIAL (09/06/2024 12:09 PM CDT) Blood us Frank Singh MD HEMATOLOGY ORDERABLES Final Res ult * BASIC METABOLIC PANEL (09/06/2024 12:08 PM CDT) Blood Frank Singh MD CHEMISTRY ORDERABLES Final Resu lt documented in this encounter Visit Diagnoses Not on filedocumented in this encounter Care Teams Roof Truss Builder Relationship Specialty Start Date End Date Timothy Banks MD [address] [place] [address] PCP - General Family Practice 02/01/24 documented as of this encounter
[2024-09-16 11:09] LABS: Anion Gap 10 mmol/L (4-12); Blood Urea Nitrogen 18 mg/dL (9-20); Carbon Dioxide 25 mmol/L (22-30); Chloride 106 mmol/L (98-107); Estimated Glomerular Filt Rate 48; Glucose 145 mg/dL (65-110); Potassium 4.9 mmol/L (3.4-5.0); Sodium 141 mmol/L (137-145)
== END 2024-09-16 09:28 | disposition home or self-care (01) ==
PROVIDERS: PCP Family Medicine; Visit Provider Internal Medicine Hematology & Oncology
DX: C92.00 Acute myeloblastic leukemia, not having achieved remission (principal)
CPT/HCPCS: 36415; 80048; 85025; 85055

== ENCOUNTER 2024-11-04 10:09 | Outpatient (CLI) | payer MEDICARE, SELFPAY ==
[2024-11-04 10:28] LABS: Hematocrit 36.2 % (42.0-52.0); Hemoglobin 12.1 g/dL (14.0-18.0); Immature Granulocyte Percent A 0.0 % (0-0.5); Immature Platelet Fraction Pct 11.3 % (0.9-11.2); Lymphocytes Absolute Auto 0.61 K/mm3 (0.9-3.2); Mean Corpuscular HGB Conc 33.4 g/dl (32-36); Mean Corpuscular Hemoglobin 36.6 pg (26-34); Mean Corpuscular Volume 109.4 fl (80-100); Nucleated Red Blood Cells Absolute Auto 0.000 K/mm3 (0.0-0.012); Nucleated Red Blood Cells Perc 0.0 % (0.0-0.2); Platelet Count Result 100 k/mm3 (150-375); Red Blood Count 3.31 M/mm3 (4.6-6.20)
[2024-11-04 10:29] LABS: Blood Urea Nitrogen 21 mg/dL (8-26); Carbon Dioxide 24 mmol/L (22-30); Chloride 107 mmol/L (98-109); Estimated Glomerular Filt Rate 45; Glucose 131 mg/dL (70-105); Ionized Calcium (POC) 1.25 mmol/L (1.11-1.31); Potassium 4.6 mmol/L (3.5-4.9); Sodium 141 mmol/L (138-146)
[2024-11-04 10:29] LABS: White Blood Count 0.8 K/mm3 (4.5-10.0)
[2024-11-04 10:33] LABS: Schistocytes None Seen
[2024-11-04 10:36] LABS: Anisocytosis 1+
--- OUTSIDE RECORDS SUMMARY | 2024-11-04 10:39 | XMS_ITS | Clinical Summary ---
Author Organization [facility] [address] Address [address] [place] [address] Care Team Providers Care Salary Manager Name Role Phone Timothy Banks MD Primary Care Provider Allergies Active Allergy Reactions Criticality Noted Date Comments Iodinated Contrast Media Hives Medium 09/07/2022 Medications budesonide-form oterol (SYMBICORT) 160-4.5 mcg/actuation inhaler inhale 2 puff [...] Active hydrocortisone 2.5 % ointment 2 Active lansoprazole (PREVACID) 30 mg capsule Take [...] 03/13/20 25 Active furosemide (LASIX) 20 mg tabletIndicatio ns:Bilateral lower extremity edema Take 1 tablet (20 mg total) by mouth daily as needed (swelling) 30 tablet 1 4 Active amiodarone (PACERONE) 200 mg tablet Take 1 tablet (200 mg total) by mouth daily 5 Active Cresemba 186 mg capsule Take 2 capsules (372 mg total) by mouth 2 (two) times a day 5 Active nortriptyline (PAMELOR) 25 mg capsule Take 1 capsule (25 mg total) by mouth nightly 5 Active Eliquis 2.5 mg tablet Take 1 tablet (2.5 mg total) by mouth 2 (two) times a day 5 Active Active Problems Problem Noted Date Diagnosed Date Syncope and collapse 10/04/2024 Paroxysmal SVT (supraventricular tachycardia) Atypical chest pain 07/29/2022 History of COVID-19 07/20/2020 QAMAR (obstructive sleep apnea) 08/28/2018 Bilateral lower extremity edema 08/28/2018 Snoring 02/21/2018 Hypersomnolence 02/21/2018 Tiredness 02/21/2018 Other fatigue 02/21/2018 Cardiac arrhythmia 10/28/2016 Lightheadedness 06/24/2016 Overview (09/02/2016): Lightheadedness Ventricular premature beats 03/31/2016 Overview (07/21/2016): Premature ventricular contraction intermediate current use of anticoagulant therapy 1 06/01/2015 [...] Encounters Date Type Department Care Team Description 10/04/2024 8:45 AM CDT Office Visit [facility] Cardiology [address] [place] [address] Jayro Kaminski MD intermediate current use of anticoagulant therapy (Primary Dx); QAMAR (obstructive sleep apnea); RBBB; Hypertensive left ventricular hypertrophy, without heart failure; Syncope and collapse from Last 3 Months Immunizations Immunization Administration [...] Medical recurrent DVT, gerd, [facility], ; Comments: MAF 03/31/2016 - Hx Other Medical CKD; Comments: [facility] 03/31/2016 - GERD (gastroesophageal reflux disease) [...] on file Legal Sex Male 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 Gender Identity Male 01/12/2020 7:43 PM CDT Sexual Orientation Straight 01/12/2020 7: 43 PM CDT Obstetrics History Last Filed Vital Signs Vital Sign Reading Time Taken Comments Blood Pressure 110/64 10/04/2024 8:38 AM CDT Pulse 75 10/04/2024 8:38 AM CDT Temperature 36.3 C (97.4 F) 08/24/2023 9:29 AM CDT Respiratory Rate 18 08/24/2023 9:29 AM CDT Oxygen Saturation 97% 10/04/2024 8:38 AM CDT Inhaled Oxygen Concentration - - Weight 92.5 kg (204 lb) 10/04/2024 8:38 AM CDT Height 185.4 cm (6' 1) 10/04/2024 8:38 AM CDT Body Mass Index 26.91 10/04/2024 8:38 AM CDT Plan of Treatment Health Maintenance Due Date Last Done Comments Depression Screening 1945 Fall Risk Assessment 1945 Hepatitis C Screening 1945 Hepatitis B Screening 1962 Well Visit 65+ 2009 Zoster Vaccine (2 of 2) 02/29/2020 01/04/2020 Covid-19 Vaccine (2 - Pfizer risk series) 05/05/2021 04/14/2021 Influenza Vaccine (#1) 2024 , 01/09/2020, 01/04/2020, Additional history exists DTaP/Tdap/Td Vaccine (2 - Td or Tdap) 09/17/2028 09/17/2018 Pneumococcal vaccine 65+ Completed 09/17/2018, 08/08 Insurance [address] [place], [place] [address] [facility] MEDICARE [address] [place] [id number] [facility] MEDICARE [address] [place] [phone] [facility] MEDICARE Care Teams Salary Manager Relationship Specialty Start Date End Date Timothy Banks MD PCP - General 07/08/16
--- OUTSIDE RECORDS SUMMARY | 2024-11-04 10:39 | XMS_ITS | Encounter Summary ---
Author Organization [facility] Address [address] [facility] [place] [address] Care Team Providers Care Fabric Sourcer Name Role Phone Timothy Banks MD Primary Care Provider [phone] Cindy Garcia MD Unavailable Encounter Details Date Type Department Care Team (Late Contact Info) Description 09/28/2023 Lab Requisition [facility] - DermPath Lab [address] [facility] [place] [address] Timothy Banks MD [address] [place] [address] Social History Tobacco Use Types Packs/Day Years Used Date Smoking Tobacco: Never Assessed Sex and Gender Information Value Date Recorded Sex Assigned at Male 03/05/2024 8:04 AM RN HYPERBARIC Legal Sex Male 6:32 PM RN HYPERBARIC Gender Identity Male 03/05/2024 8:04 AM RN HYPERBARIC Sexual Orientation Straight 03/05/2024 8: 04 AM RN HYPERBARIC documented as of this encounter Plan of Treatment Upcoming Encounters Date Type Department Care Team (Late Contact Info) Description 11/11/2024 8:20 AM CDT Hospital Encounter [facility] [address] [place] [address] Timothy Banks MD [address] [place] [address] 11/11/2024 9:00 AM CDT Office Visit [facility] - Hematology/Oncology [address] [place] [phone] Stephanie Connolly APRN-FUR STORAGE CLERK [address] [place] [phone] 11/12/2024 8:30 AM CDT Appointment [facility] [address] [place] [address] Timothy Banks MD [address] [place] [address] 11/13/2024 8:30 AM CDT Appointment [facility] [address] [place] [address] Timothy Banks MD [address] [place] [address] 11/14/2024 8:30 AM CDT Appointment [facility] [address] [place] [address] Timothy Banks MD [address] [place] [address] 11/15/2024 8:30 AM CDT Appointment [facility] [address] [place] [address] Timothy Banks MD [address] [place] [address] 11/22/2024 1:00 PM CDT Office Visit [facility] - Cardiology [address] [facility] [address] [place] [address] Kaushal Archer MD [address] [place] [address] 12/10/2024 9:00 AM CDT Appointment [facility] [address] [place] [address] Timothy Banks MD [address] [place] [address] documented as of this encounter Procedures Procedure Name Priority Date/Time Associated Diagnosis Comments DERMATOPATHOLOGY Routine 09/27/2023 12:0 0 AM CDT documented in this encounter Results * DERMATOPATHOLOGY (09/27/2023 12:00 AM CDT) Case Report Dermatopathology Report Case: [id number] Authorizing Provider: Timothy Banks MD Collected: 09/27/2023 12:00 AM Ordering Location: [facility] - Received: 09/28/2023 10:46 AM [...] MARGIN 4 12:35 PM CDT DERMATOPATHOLOGY LABORATORY at 1235 CDT Clinical History A-B: Changing lesion 4 12:35 PM CDT DERMATOPATHOLOGY LABORATORY Gross Description Specimen A: Received is one formalin filled container labeled with the patient's name and designated left neck. The specimen consists of a shave biopsy measuring [id number] mm. Jar 0. Specimen B: Received is [...] characteristic determined by the Dermatopathology Laboratory at [facility], directed by Dr. Randall Pringle. These tests need not be, and therefore are not, approved by the [place] Food and Drug Administration. The tests are used for clinical purposes. Billing Codes Specimen Charges Stain Charges 15453 47964 1 1 4 12:35 PM CDT DERMATOPATHOLOGY LABORATORY Embedded Images 4 12:35 PM CDT DERMATOPATHOLOGY LABORATORY Pathology/Cytology TISSUE SPECIMEN FROM SKIN / Unknown 09/27/2023 09/28/2023 10:46 AM CDT Miscellaneous samples (specimen) TISSUE SPECIMEN FROM SKIN / Unknown 09/27/2023 09/28/2023 10:46 AM CDT us Timothyelle Banks MD LAB - PATHOLOGY/CYTOLOGY CHELI MONREAL Final Result DERMATOPATHOLOGY LABORATORY [facility] - Department of Dermatology [address] [phone] documented in this encounter Visit Diagnoses Not on filedocumented in this encounter Additional Health Concerns Infection Onset Date Last Indicated Resolved Time COVID-19 Under Investigation 08/08/2024 08/08/2024 08/08/2024 2:07 PM CDT documented as of this encounter Care Teams Fabric Sourcer Relationship Specialty Start Date End Date Timothy Banks MD [address] [place] [phone] PCP - General 10/19/18 Cindy Garcia MD [address] [place] [address] Mallet And Die Cutter/Oncologis t Hematology and Oncology 03/24/24 documented as of this encounter
--- OUTSIDE RECORDS SUMMARY | 2024-11-04 10:39 | XMS_ITS | Encounter Summary ---
Author Organization [facility] Address [address] [place] [address] Phone Care Team Providers Care Linux Systems Engineer Name Role Phone Timothy Banks MD Primary Care Provider [phone] Encounter Details Date Type Department Care Team (Late st Contact Info) Description 08/25/2017 Orders Only [facility] ProviderDusty MD [address] [place] [address] Social History Tobacco Use Types Packs/Day Years Used Date Smoking Tobacco: Never Smokeless Tobacco: Never Alcohol Use Standard Drinks/Week Comments Yes 0 (1 standard drink = 0.6 oz pur e alcohol) Sex and Gender Information Value Date Recorded Sex Assigned at Not on file Legal Sex Male 4:19 AM 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
--- OUTSIDE RECORDS SUMMARY | 2024-11-04 10:39 | XMS_ITS | Referral Summary ---
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 therapy (Primary Dx); QAMAR (obstructive sleep apnea); RBBB; Hypertensive left ventricular hypertrophy, without heart failure; Syncope and collapse from Last 3 Months Allergies Active Allergy [...] beats 03/31/2016 Overview (07/21/2016): Premature ventricular contraction snf current use of anticoagulant therapy 1 06/01/2015 [...] on file Legal Sex Male 4:19 AM INTERACTIVE PRODUCER Gender Identity Male 01/12/2020 7:43 PM CDT [...] 10/04/2024 8:38 AM CDT Plan of Treatment Not on file Insurance [facility] MEDICARE [employer] MEDICARE [employer] MEDICARE Care Teams Drug Regulatory Affairs Specialist Relationship Specialty Start Date End Date Timothy Banks MD PCP - General 07/08/16
--- OUTSIDE RECORDS SUMMARY | 2024-11-04 10:39 | XMS_ITS | Encounter Summary ---
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) Social History Tobacco Use Types Packs/Day Years Used Date Smoking Tobacco: Never Smokeless Tobacco: Never Alcohol Use Standard Drinks/Week Comments Yes 0 (1 standard drink = 0.6 oz pur e alcohol) Very Ocasionally Sex and Gender Information Value Date Recorded Sex Assigned at Male 04/05/2024 3:07 PM AIRCRAFT CHARTER DISPATCHER Legal Sex Male 10:53 AM CDT Gender Identity Male 04/05/2024 3:07 PM AIRCRAFT CHARTER DISPATCHER Sexual Orientation Not on file documented as of this encounter Plan of Treatment Not on file documented as of this encounter Visit Diagnoses Diagnosis 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 [address] PCP - General Family Practice 02/01/24 documented as of this encounter
--- OUTSIDE RECORDS SUMMARY | 2024-11-04 10:39 | XMS_ITS | Encounter Summary ---
Author Organization [facility] Address [address] [place] [address] Phone Care Team Providers Care Golf Manager Name Role Phone Timothy Banks MD Primary Care Provider Encounter Details Date Type Department Care Team (Late st Contact Info) Description 01/25/2024 Telephone [facility] Cardiology [address] [facility] Medicine 8th [place] [address] [place] [address] Alberto Gallegos MD [address] [place] [address] Social History Tobacco Use Types Packs/Day Years Used Date Smoking Tobacco: Never Smokeless Tobacco: Never Alcohol Use Standard Drinks/Week Comments Yes 0 (1 standard drink = 0.6 oz pur e alcohol) Sex and Gender Information Value Date Recorded Sex Assigned at Not on file Legal Sex Male 4:19 AM GARAGE LABORER Gender Identity Male 01/12/2020 7:43 PM CDT Sexual Orientation Straight 01/12/2020 7: 43 PM CDT documented as of this encounter Plan of Treatment Not on file documented as of this encounter Visit Diagnoses Not on filedocumented in this encounter Care Teams Golf Manager Relationship Specialty Start Date End Date Timothy Banks MD PCP - General 07/08/16 documented as of this encounter
--- OUTSIDE RECORDS SUMMARY | 2024-11-04 10:39 | XMS_ITS | Encounter Summary ---
Author Organization [facility] Address [address] [address] Care Team Providers Care Peer Counselor Name Role Phone Timothy Banks MD Primary Care Provider [phone] Cindy Garcia MD Unavailable Encounter Details Date Type Department Care Team (Late st Contact Info) Description 02/13/2024 Lab Requisition [facility] - Pathology Lab [address] [place] [address] Rommel Dinh MD [address] [place] [id number] Illness, unspecified Social History Tobacco Use Types Packs/Day Years Used Date Smoking Tobacco: Never Assessed Sex and Gender Information Value Date Recorded Sex Assigned at Male 03/05/2024 8:04 AM COSTUMER ASSISTANT Legal Sex Male 6:32 PM COSTUMER ASSISTANT Gender Identity Male 03/05/2024 8:04 AM COSTUMER ASSISTANT Sexual Orientation Straight 03/05/2024 8: 04 AM COSTUMER ASSISTANT documented as of this encounter Plan of Treatment Upcoming Encounters Date Type Department Care Team (Late st Contact Info) Description 11/11/2024 8:20 AM CDT Hospital Encounter [facility] [address] [place] [address] Timothy Banks MD [address] [place] [address] 11/11/2024 9:00 AM CDT Office Visit [facility] - Hematology/Oncology [address] [place] [phone] Stephanie Connolly APRN-INCLINOMETER TESTER [address] [place] [phone] 11/12/2024 8:30 AM CDT Appointment [facility] [address] [place] [phone] Timothy Banks MD [address] [place] [address] 11/13/2024 8:30 AM CDT Appointment [facility] [address] [place] [phone] Timothy Banks MD [address] [place] [address] 11/14/2024 8:30 AM CDT Appointment [facility] [address] [place] [address] Timothy Banks MD [address] [place] [address] 11/15/2024 8:30 AM CDT Appointment [facility] [address] [place] [phone] Timothy Banks MD [address] [place] [address] 11/22/2024 1:00 PM CDT Office Visit [facility] - Cardiology [address] [facility] [address] [place] [address] Kaushal Archer MD [address] [place] [phone] 12/10/2024 9:00 AM CDT Appointment [facility] [address] [place] [phone] Timothy Banks MD [address] [place] [address] documented as of this encounter Procedures Procedure Name Priority Date/Time Associated Diagnosis Comments BONE MARROW BIOPSY (STL) Routine 02/12/2024 9:20 AM COSTUMER ASSISTANT Illness, unspecified documented in this encounter Results * BONE MARROW BIOPSY (STL) (02/12/2024 9:20 AM COSTUMER ASSISTANT) Case Report Bone Marrow Patholog y Report Case: [id number] Authorizing Provider: Rommel Dinh Collected: 02/12/2024 09:20 AM MD Luke Ordering Location: [facility] - Received: 02/13/2024 12:34 PM Pathology Lab Pathologist: Daniela Bronson MD Specimens: A) - Bone Marrow Clot B) - Bone Marrow Core 02/14/2024 1:43 PM COSTUMER ASSISTANT [facility] Final Diagnosis Bone marrow, iliac crest, core biopsy, clot section, and aspirate: - Increased myeloblasts (up to 30% by morphology) with mild trilineage dyspoiesis involving a hypercellular bone marrow (70-80% cellular), see comment - Absent iron stores - Patchy and mild increase in reticulin fibrosis (MF-1) 02/14/2024 1:43 PM COSTUMER ASSISTANT [facility] at [address] COSTUMER ASSISTANT AP Comment The patient is a [...] a high-grade myeloid neoplasm. 02/14/2024 1:43 PM [facility] Peripheral Smear Description The patient's [...] including numerous giant platelets. 02/14/2024 1:43 PM [facility] Bone Marrow Aspirate Differential count [...] stain): no ring sideroblasts. 02/14/2024 1:43 PM [facility] Bone Marrow Core Biopsy and [...] similar to core biopsy. 02/14/2024 1:43 PM [facility] Flow Cytometry Summary Flow cytometry identified 35% myeloblasts and no diagnostic immunophenotypic evidence of monoclonal B-cells, an aberrant T-cell population, or plasma cell neoplasm ([id number]). 02/14/2024 1:43 PM [facility] Clinical History Chronic leukopenia 02/14/2024 1:43 PM [facility] Materials Received Received are 19 slide(s) and 3 blocks labeled [id number] along with a copy of the outside pathology report. [place] [address]. All original materials are returned to the referring institution, along with a copy of our final report. 02/14/2024 1:43 PM [facility] Microscopic Description CD34 immunohistochemistry stains [...] sections reveal absent stores. 02/14/2024 1:43 PM [facility] Pathologist Location at [facility] 02/14/2024 1:43 PM [facility] Disclaimer The performance characteristics of all immunohistochemical and indirect immunofluorescence stains (if any) cited in this report were determined by the Histopathology Laboratory of [facility]. Some of these tests were [...] the attending (teaching) pathologist. 02/14/2024 1:43 PM COSTUMER ASSISTANT [facility] Embedded Images 02/14/2024 1:43 PM COSTUMER ASSISTANT [facility] Pathology/Cytology BONE MARROW SPECIMEN / Unknown 02/12/2024 9:20 AM COSTUMER ASSISTANT 02/13/2024 12:34 PM COSTUMER ASSISTANT Miscellaneous samples (specimen) BONE MARROW SPECIMEN / Unknown 02/12/2024 9:20 AM COSTUMER ASSISTANT 02/13/2024 12:34 PM COSTUMER ASSISTANT Rommel Dinh MD LAB - PATHOLOGY/CYT OLOGY ORDERABLES Final Result Performing Organization Address City/State/[facility] Co de Phone Number [facility] [address] [place], [place] [address] [phone] documented in this encounter Visit Diagnoses Diagnosis Illness, unspecified documented in this encounter Additional Health Concerns Infection Onset Date Last Indicated Resolved Time COVID-19 Under Investigation 08/08/2024 08/08/2024 08/08/2024 2:07 PM CDT documented as of this encounter Care Teams Peer Counselor Relationship Specialty Start Date End Date Timothy Banks MD [address] [place] [phone] PCP - General 10/19/18 Cindy Garcia MD [address] [place] [address] Health Care Manager/Oncologis t Hematology and Oncology 03/24/24 documented as of this encounter
--- OUTSIDE RECORDS SUMMARY | 2024-11-04 10:39 | XMS_ITS | Clinical Summary ---
Author Organization [facility] Address [address] [place] [phone] Phone Care Team Providers Care Field Hand Name Role Phone Timothy Banks MD Primary Care Provider [phone] Allergies No known active allergies Medications Cholecalciferol [...] AM MDT Legal Sex Male 9:10 AM [facility] Gender Identity Male 11/09/2019 9:17 AM MDT [...] Date Last Done Comments COVID-19 Vaccine (2 2023-2 5 season) 2023 04/14/2021 Influenza Vaccine (#1) 2024 , 01/09/2020, 01/25/2019, Additional history exists Pneumococcal PPSV23/PCV13 65 + Years / Low and Medium Risk Completed 09/17/2018, 08/27/2015 Insurance [employer] Care Teams Field Hand Relationship Specialty Start Date End Date Timothy Banks MD [address] [place] [phone] PCP - General Family Medicine 11/14/18
--- OUTSIDE RECORDS SUMMARY | 2024-11-04 10:39 | XMS_ITS ---
Author Organization [facility] Address [address] [place] [address] Care Team Providers Care Medical Claims Assistant Name Role Phone Timothy Banks MD Primary Care Provider [phone] Cindy Garcia MD Unavailable Active Problems Problem [...] Medications Current Day (Day 1 , Cycle 7 - Planned for 11/07/2024) Next Day (Day 2, Cycle 7 - Planned for 11/08/2024) decitabine (Dacogen) infusionvenetoclax (Venclexta) decitabine (Dacogen) 45 [...]
--- OUTSIDE RECORDS SUMMARY | 2024-11-04 10:39 | XMS_ITS | Clinical Summary ---
Author Organization [facility] Address [address] [place] [address] Care Team Providers Care Melt Helper Name Role Phone Unavailable Primary Care Provider Unavailabl e Immunizations Immunization Administration Dates Next Due Covid-19, Mrna, Lnp-s, Pf, 30 Mcg/0.3 Ml Dose (P fizer) 04/14/2021 Social History Tobacco Use Types Packs/Day Years Used Date Smoking Tobacco: Never Assessed Sex and Gender Information Value Date Recorded Sex Assigned at Not on file Legal Sex Male 3:46 PM DENTAL OFFICE COORDINATOR Gender Identity Not on file Sexual Orientation Not on file Plan of Treatment Health Maintenance Due Date Last Done Comments Hepatitis C Virus (HCV) Screening 1945 Respiratory Syncytial Virus (RSV) Immunization (Adult) (1 - 1-dose 75+ series) 11/04/2019 SARS-COV-2 Immunization ( season) 2023 04/14/2021, 06/25/2020, 06/02/2020 Influenza Immunization (#1) 2024 08/2 06/2020, 01/09/2020, 01/04/2020, Additional history exists DTaP/Tdap/Td Immunization [...]
--- OUTSIDE RECORDS SUMMARY | 2024-11-04 10:39 | XMS_ITS | Clinical Summary ---
Author Organization [facility] Address [address] [place] [address] Care Team Providers Care Manager Mobility Name Role Phone Timothy Banks MD Primary Care Provider [phone] Cindy Garcia MD Unavailable Source Comments [facility] Affiliates and Associated Physician Practices is amultiple site organization consisting of ambulatory clinics and hospital sitesin [place], [place] and [place]. This disclosure is being madepursuant to the Care Everywhere program and may not contain all information available regarding this patient. Last updated 17.[facility] Allergies Active Allergy Reactions Criticality Noted Date [...] mg) / 24 hours. 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) Take 1 (one) tablet by mouth 2 times daily 60 tablet 5 05/16/19 25 Active amiodarone (Cordarone) 200 MG tabletIndicati [...] Myelocytic Leukemia 30 tablet 3 08/15/19 25 Active isavuconazoniu m (Cresemba) 186 MG capsule Take 2 (two) capsules by mouth every 24 hours 56 capsule 3 08/15/19 25 Active nortriptyline (Pamelor) 25 MG capsule Take 1 (one) capsule by mouth at bedtime 08/19/19 25 Active apixaban (Eliquis) 2.5 MG tablet Take 1 (one) tablet by mouth 2 times daily 60 tablet 3 08/29/19 25 Active ferrous sulfate (FeroSul) 325 (65 FE) MG tabletIndicati ons:Acute myeloid leuk w multilin dysplasia, 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) Take 1 (one) tablet by mouth every 2 days 30 tablet 2 10/01/19 25 Active polyethylene glycol 3350 (Miralax) 17 g packet Take 17 (seventeen) g by mouth once daily as needed for Constipation 30 packet 2 10/30/19 25 Active polyethylene glycol 3350 (Miralax) 17 g packet Take 17 (seventeen) g by mouth once daily as needed for Constipation 03/23/20 24 025 Discontin ued(List Clean-Up) Active Problems Problem Noted Date Diagnosed Date [...] Encounters Date Type Department Care Team Description 2024 Orders Only [facility] - Hematology/Oncology [address] [place] [address] Cindy Garcia MD Vitamin D deficiency 10/31/2024 9:00 AM CDT Video Visit [facility] - Hematology/Oncology [address] [place] [phone] Cindy Garcia MD Family history of AML in remission 10/29/2024 11:13 AM CDT - 10/29/2024 2:14 PM CDT Hospital Encounter [facility] [address] [place] [phone] Cindy Garcia MD [facility] Discharge Disposition: Home or Self Care 10/29/2024 Travel 10/29/2024 Orders Only [facility] - Hematology/Oncology [address] [place] [address] Cindy Garcia MD 10/28/2024 Telephone [facility] [address] [place] [address] Olivia Peters, KEVIN Appointment 10/14/2024 8:49 AM CDT - 10/14/2024 11:59 PM CDT Hospital Encounter [facility] [address] [place] [address] Timothy Banks MD Discharge Disposition: Home or Self Care 10/14/2024 Travel 10/10/2024 8:29 AM CDT - 10/10/2024 11:59 PM CDT Hospital Encounter [facility] [address] [place] [address] Timothy Banks, Discharge Disposition: Home or Self Care 10/10/2024 Travel 10/09/2024 8:51 AM CDT - 10/09/2024 11:59 PM CDT Hospital Encounter [facility] [address] [place] [address] Timothy Banks MD Discharge Disposition: Home or Self Care 10/09/2024 Travel 10/08/2024 8:43 AM CDT - 10/08/2024 11:59 PM CDT Hospital Encounter [facility] [address] [place] [address] Timothy Banks MD Discharge Disposition: Home or Self Care 10/08/2024 Orders Only [facility] - Hematology/Oncology [address] [place] [phone] Nikole Chou RN Acute myeloid leukemia in remission (HCC) 10/08/2024 Travel 10/07/2024 11:20 AM CDT Office Visit [facility] - Hematology/Oncology [address] [place] [phone] Stephanie Connolly APRN-FAISAL 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); Chronic kidney disease, unspecified CKD stage 10/07/2024 10:25 AM CDT - 10/07/2024 11:59 PM CDT Hospital Encounter [facility] [address] [place] [address] Timothy Banks MD Discharge Disposition: Home or Self Care 10/07/2024 Travel 09/30/2024 9:40 AM CDT Office Visit [facility] - Hematology/Oncology [address] [place] [phone] Stephanie Connolly APRN-FAISAL 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); Acute myeloid leuk w multilin dysplasia, 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); Neutropenia, unspecified type 09/30/2024 8:33 AM CDT - 09/30/2024 11:59 PM CDT Hospital Encounter [facility] [address] [place] [address] Timothy Banks MD Zia, Maryam F, MD Discharge Disposition: Home or Self Care 09/30/2024 Travel 09/24/2024 Telephone [facility] - Cardiology [address] [place] [phone] Tracey Pond MA Follow-up 09/23/2024 9:30 AM CDT Office Visit [facility] - Hematology/Oncology [address] [place] [phone] Cindy Garcia MD 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) 09/23/2024 8:22 AM CDT - 09/23/2024 11:59 PM CDT Hospital Encounter [facility] [address] [place] [address] Cindy Garcia MD Discharge Disposition: Home or Self Care 09/23/2024 Travel 08/30/2024 8:09 AM CDT - 08/30/2024 11:59 PM CDT Hospital Encounter [facility] [address] [place] [address] Timothy Banks MD Discharge Disposition: Home or Self Care 08/30/2024 Travel 08/29/2024 8:53 AM CDT - 08/29/2024 11:59 PM CDT Hospital Encounter [facility] [address] [place] [address] Timothy Banks MD Discharge Disposition: Home or Self Care 08/29/2024 Travel 08/28/2024 8:55 AM CDT - 08/28/2024 11:59 PM CDT Hospital Encounter [facility] [address] [place] [address] Timothy Banks MD Discharge Disposition: Home or Self Care 08/28/2024 Refill [facility] H[facility]ology[facility]Oncology [address] [place] [phone] Cindy Garcia MD MEDICATION REFILL 08/28/2024 Travel 08/27/2024 8:54 AM CDT - 08/27/2024 11:59 PM CDT [facility] [address] [place] [address] Timothy Banks MD Discharge Disposition: Home or Self Care 08/27/2024 Travel 08/26/2024 10:00 AM CDT Office Visit [facility] - Hematology/Oncology [address] [place] [phone] Stephanie Connolly APRN-CNP 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); At risk for long QT syndrome 08/26/2024 8:45 AM CDT - 08/26/2024 11:59 PM CDT [facility] [address] [place] [address] Timothy Banks MD Discharge Disposition: Home or Self Care 08/26/2024 Travel 08/23/2024 2:30 PM CDT Office Visit [facility] - Cardiology [address] [facility] [address] [place] [address] Tracey Pond APRN-CNP SVT (supraventricular tachycardia) (HCC) (Primary Dx); On amiodarone therapy; PVC's (premature ventricular contractions); Syncope and collapse; Palpitations 08/23/2024 Travel 08/19/2024 10:00 AM CDT Office Visit [facility] - Hematology/Oncology [address] [place] [phone] Cindy Garcia MD 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) 08/19/2024 9:05 AM CDT - 08/19/2024 11:59 PM CDT [facility] [address] [place] [address] Timothy Banks MD Discharge Disposition: Home or Self Care 08/19/2024 Travel 08/17/2024 Refill [facility] - Hematology/Oncology [address] [place] [phone] Cindy Garcia MD Refill Request 08/16/2024 Telephone [facility] - Hematology/Oncology [address] [place] [phone] Cindy Garcia MD Refill Request (See notes) 08/14/2024 Refill [facility] - Hematology/Oncology [address] [place] [phone] Cindy Garcia MD MEDICATION REFILL 08/14/2024 Refill [facility] - Hematology/Oncology [address] [place] [phone] Cindy Garcia MD MEDICATION REFILL 08/13/2024 Orders Only [facility] - Hematology/Oncology [address] [place] [phone] Cindy Garcia MD 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) 08/13/2024 Orders Only [facility] - Hematology/Oncology [address] [place] [phone] Cindy Garcia MD 08/13/2024 Orders Only [facility] - Hematology/Oncology [address] [place] [phone] Cindy Garcia MD 08/13/2024 Orders Only [facility] - Hematology/Oncology [address] [place] [phone] Cindy Garcia MD 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) 08/08/2024 11:34 AM CDT - 08/11/2024 6:29 PM CDT Hospital Encounter [facility] 7N ACUTE [address] [place] [address] Mustapha Hawkins MD Hazam, Randa, MD Akyuz Yesilyaprak, Kevser, MD Gandhi, Avi, MD Emergency Medicine Discharge Disposition: Home or Self Care 08/08/2024 Travel 08/08/2024 Telephone [facility] - Hematology/Oncology [address] [place] [phone] Nikole Chou RN Fever 08/08/2024 Telephone [facility] - Hematology/Oncology [address] [place] [phone] Cindy Garcia MD Medication Prior Auth Request 08/07/2024 Orders Only [facility] - Hematology/Oncology [address] [place] [phone] Cindy Garcia MD 08/05/2024 9:00 AM CDT Office Visit [facility] - Hematology/Oncology [address] [place] [phone] Stephanie Connolly APRN-LEATHER HEEL BREASTER 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); Neutropenia, unspecified type; At risk for long QT syndrome 08/05/2024 8:00 AM CDT - 08/05/2024 11:59 PM CDT Hospital Encounter [facility] [address] [place] [phone] Timothy Banks MD Discharge Disposition: Home or Self Care 08/05/2024 Travel from Last 3 Months Social History Tobacco Use Types Packs/Day Years Used Date Smoking Tobacco: Never Passive Smoke Exposure: Never Smokeless Tobacco: Never Tobacco Cessation:Counseling Given: Not Answered Alcohol Use Standard Drinks/Week Comments Not Currently 0 (1 standard drink = 0.6 oz pur e alcohol) AUDIT-C Answer Date Recorded Q1: How often do you have a drink containing alcohol? Never 10/29/2024 Q2: How many drinks containi ng alcohol do you have on a typical day when you are drinking? Patient does not drink Q3: How often do you have si x or more drinks on one occasion? Never 10/29/2024 Overall Financial Resource Strain (CARDIA) Answe r Date Recorded How hard is it for you to pa y for the very basics like food, housing, medical care, and heating? Not hard at all 03/13/2024 PHQ-2 Answer Date Recorded Patient Health Questionnaire-2 Score 0 09/23/2024 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 Last Filed Vital Signs Vital Sign Reading Time Taken Comments Blood Pressure 127/76 10/29/2024 2:00 PM CDT Pulse 63 10/29/2024 2:00 PM CDT Temperature 36.6 C (97.9 F) 10/29/2024 1:06 PM CDT Respiratory Rate 10 10/29/2024 2:00 PM CDT Oxygen Saturation 99% 10/29/2024 2:00 PM CDT Inhaled Oxygen Concentration 21% 10/29/2024 1 :15 PM CDT Weight 88.2 kg (194 lb 8 oz) 10/29/2024 11:29 AM CDT Height 182.9 cm (6') 10/29/2024 11:29 AM CDT Body Mass Index 26.38 10/29/2024 11:29 AM CDT Plan of Treatment Upcoming Encounters Date Type Department Care Team (Late st Contact Info) Description 11/11/2024 8:20 AM CDT Hospital Encounter [facility] [address] [place] [address] Timothy Banks MD [address] [place] [address] 11/11/2024 9:00 AM CDT Office Visit [facility] - Hematology/Oncology [address] [place] [phone] Stephanie Connolly, ANITA-LEATHER HEEL BREASTER [address] [place] [phone] 11/12/2024 8:30 AM CDT Appointment [facility] [address] [place] [address] Timothy Banks MD [address] [place] [phone] 11/13/2024 8:30 AM CDT Appointment [facility] [address] [place] [phone] Timothy Banks MD [address] [place] [address] 11/14/2024 8:30 AM CDT Appointment [facility] [address] [place] [address] Timothy Banks MD [address] [place] [address] 11/15/2024 8:30 AM CDT Appointment [facility] [address] [place] [address] Timothy Banks MD [address] [place] [address] 11/22/2024 1:00 PM CDT Office Visit [facility] - Cardiology [address] [facility] [address] [place] [address] Kaushal Archer MD [address] [place] [address] 12/10/2024 9:00 AM CDT Appointment [address] [address] Timothy Banks [place] [address] Health Maintenance Due Date Last Done Comments DTAP/TDAP/TD VACCINES (1 - Tdap) 11/04/1963 PNEUMOCOCCAL VACCINE 50+ (1 of 2 - PCV) 11/04/1963 ZOSTER VACCINE (1 of 2) 11/04/1963 Respiratory Syncytial Virus (RSV) Vaccine Pt: or over 60 yrs (1 - 1-dose 75+ series) 11/04/2019 COVID-19 VACCINE ( - season) 2023 04/14/2021, 06/25/2020, 06/02/2020 MEDICARE AWV CALENDAR YEAR 2024 INFLUENZA VACCINE (#1) 2024 4, 12/21/2022, 12/25/2021, Additional history exists DEPRESSION SCREENING Completed 09/23/2024 HEPATITIS B VACCINE Aged Out No longe [...] this topic Medical Devices Implanted Type Area Plan Consultant Device Identifier Shelf Expiration Date Model / Serial / Lot Port Implinfn Powerport Clrvu Argd Kandy Implanted:Qty : 1 on 04/11/2024 by Davian Marshall MD at [facility] Catheters Right: Chest Wall [employer] [id number] 02/07/2025 [id number] / / [id number] Procedures Procedure Name Priority Date/Time Associated Diagnosis Comments CT BONE MARROW BIOPSY Routine 10/29/2024 1:09 PM CDT Acute myeloid leukemia in remission (HCC) FLOW CYTOMETRY BONE MARROW Routine 10/29/2024 1:05 PM CDT Acute myeloid leukemia 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) BONE MARROW BIOPSY (STL) Routine 10/29/2024 1:05 PM CDT Acute myeloid leukemia 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) LAB MISC TEST (NOT BLOOD) Routine 10/29/2024 1:05 PM CDT Acute myeloid leukemia 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) PLATELET COUNT AUTO STAT 10/29/2024 1 1:46 AM CDT MDS (myelodysplastic syndrome) (HCC) Acute myeloid leukemia 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) PT-INR STAT 10/29/2024 11:46 AM CDT MDS (myelodysplastic syndrome) (HCC) Acute myeloid leukemia 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) DIFFERENTIAL MANUAL Routine 10/07/2024 1 1:03 AM CDT Acute myeloid leuk w multilin dysplasia, 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) COMPREHENSIVE METABOLIC PANEL Routine 10/07/2024 11:03 AM CDT Acute myeloid leuk w multilin dysplasia, 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) CBC W AUTO DIFFERENTIAL Routine 10/07/2024 11:03 AM CDT Acute myeloid leuk w multilin dysplasia, 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) DIFFERENTIAL MANUAL Routine 09/30/2024 8 :51 AM CDT Acute myeloid leuk w multilin dysplasia, 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) COMPREHENSIVE METABOLIC PANEL Routine 09/30/2024 8:51 AM CDT Acute myeloid leuk w multilin dysplasia, 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) CBC W AUTO DIFFERENTIAL Routine 09/30/2024 8:51 AM CDT Acute myeloid leuk w multilin dysplasia, 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) DIFFERENTIAL MANUAL Routine 09/23/2024 8 :38 AM CDT Acute myeloid leuk w multilin dysplasia, 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) COMPREHENSIVE METABOLIC PANEL Routine 09/23/2024 8:38 AM CDT Acute myeloid leuk w multilin dysplasia, 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) CBC W AUTO DIFFERENTIAL Routine 09/23/2024 8:38 AM CDT Acute myeloid leuk w multilin dysplasia, 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 The pathology report is pending at the time of this dictation. I, Dr. Brown, was present and performed/supervised the entire procedure. Moderate sedation on this patient was ordered by me, administered intravenously in my presence, and monitored by the procedure nurse as an independent trained observer who was present throughout the procedure. The following parameters were monitored: oxygen saturation, heart rate, blood pressure, and response to care. Intra-service sedation start time was 12:46 PM and end time was 1:00 PM during which I was present. Total physician intra-service sedation time was 14 minutes. For details on pre moderate sedation and post moderate sedation patient evaluation, please review the evaluation forms in [employer]. For details on monitored clinical parameters during the intra-service sedation time, please review the procedure nurse documentation in [employer]. > Interpreting Provider: Erasmo Brown on 10/29/2024 10:55 PM Narrative 10/29/2024 10:55 PM CDT PROCEDURE: CT BONE MARROW BIOPSY DATE/TIME OF EXAM: 10/29/2024 1:10 PM CLINICAL INFORMATION: None relevant/not provided if blank. Indication: C92.01: Acute myeloid leukemia in remission (HCC) History: 78-year-old male with history of AML. Vascular and interventional radiology service has been consulted to perform bone marrow biopsy to guide further management. Operators: 1.Dr. Erasmo Brown M.D., Attending Physician 2.Julio Eduardo, MS4 Anesthesia: 1.Local anesthesia - 10 mL of 1% lidocaine 2.Intravenous conscious sedation - Versed 1 mg and Fentanyl 50 mcg Procedure: 1.Limited non-contrast CT of the pelvis. 2.CT-guided bone marrow aspiration and biopsy of the left iliac bone. Procedure in detail: The procedure and possible complications were explained to the patient in detail, and informed consent was obtained. The patient was placed in a prone position on the CT table and a radio-opaque grid was placed over the region of interest. Limited non-contrast CT of the pelvis showed unremarkable iliac bones. A percutaneous entry site was marked on the skin to access the left iliac bone. The marked site and skin around the region was prepped and draped in a sterile fashion. Local anesthesia was provided with 1% Lidocaine. An 11 gauge coaxial needle system was advanced in stages under CT guidance using a power drill On-control system. With the needle tip within the iliac wing bone marrow, the inner stilet was removed and marrow aspiration was performed per protocol. The samples were collected by the hematology-oncology confectionery laboratory manager on site. In addition, one core sample was acquired by advancing the coaxial system across the iliac wing bone marrow. Final post-biopsy imaging did not show any immediate complications. The patient tolerated the procedure well and was transferred to the holding area in stable condition. Procedure Note Erasmo Brown MD - 10/29/2024 PROCEDURE: CT BONE MARROW BIOPSY DATE/TIME OF EXAM: 10/29/2024 1:10 PM CLINICAL INFORMATION: None relevant/not provided if blank. Indication: C92.01: Acute myeloid leukemia in remission (HCC) History: 78-year-old male with history of AML. Vascular andinterventional radiology service has been consulted to perform bone marrow biopsy toguide further management. Operators: 1.Dr. Erasmo Brown M.D., Attending Physician 2.Julio Eduardo, MS4 Anesthesia: 1.Local anesthesia - 10 mL of 1% lidocaine 2.Intravenous conscious sedation - Versed 1 mg and Fentanyl 50 mcg Procedure: 1.Limited non-contrast CT of the pelvis. 2.CT-guided bone marrow aspiration and biopsy of the left iliac bone. Procedure in detail: The procedure and possible complications were explained to the patientin detail, and informed consent was obtained. The patient was placed in a prone position on the CT table and a radio-opaque grid was placed overthe region of interest. Limited non-contrast CT of the pelvis showed unremarkable iliac bones. A percutaneous entry site was marked on theskin to access the left iliac bone. The marked site and skin around the region was prepped and draped in a sterile fashion. Local anesthesia was provided with 1% Lidocaine. An 11 gauge coaxial needle system was advanced in stages under CT guidanceusing a power drill On-control system. With the needle tip within the iliacwing bone marrow, the inner stilet was removed and marrow aspiration was performed per protocol. The samples were collected by the hematology-oncology confectionery laboratory manager on site. In addition, one core sample was acquired by advancing the coaxial system across the iliac wing bone marrow. Final post-biopsy imaging did not show any immediate complications. The patient tolerated the procedure well and was transferred to the holding area in stable condition. Impression: CT-guided bone marrow aspiration and biopsy of the leftiliac bone, as detailed above. The pathology report is pending at the time of this dictation. I, Dr. Brown, was present and performed/supervised the entireprocedure. Moderate sedation on this patient was ordered by me, administered intravenously in my presence, and monitored by the procedure nurse as an independent trained observer who was present throughout the procedure.The following parameters were monitored: oxygen saturation, heart rate,blood pressure, and response to care. Intra-service sedation start time was12:46 PM and end time was 1:00 PM during which I was present. Total physician intra-service sedation time was 14 minutes. For details on pre moderate sedation and post moderate sedation patient evaluation, please reviewthe evaluation forms in [facility]. For details on monitored clinical parameters during the intra-service sedation time, please review the procedurenurse documentation in [facility]. > Interpreting Provider: Erasmo Brown on 10/29/2024 10:55 PM Cindy Garcia MD CT ORDERABLES Final Result * FLOW CYTOMETRY BONE MARROW (10/29/2024 1:05 PM CDT) Case Report Flow Cytometry Case: [id number] Authorizing Provider: Cindy Garcia MD Collected: 10/29/2024 01:05 PM Ordering Location: [facility] Received: 10/29/2024 01:19 PM Pathologist: Daniela Bronson MD Specimen: Bone Marrow 10/30/2024 9:15 AM CDT [facility] Final Diagnosis Bone marrow, flow cytometric immunophenotyping: - 0.4% myeloblasts identified in a markedly paucicellular specimen; minimal residual disease (MRD) flow cytometry pending with addendum to follow - No significant B-cell population or immunophenotypic evidence of a plasma cell neoplasm 10/30/2024 9:15 AM [facility] at 0915 CDT Flow Cytometry Interpretation Viability: 95% B-cells: no significant population T-cells: 42% of total, no diagnostic immunophenotypic aberrancy detected between CD2, CD5, CD7. Approximately 14% of total cells represent natural killer cells. Blasts: detected, 0.4%, express CD34, CD13, CD11c (minimal subset), CD117, CD56 (minimal subset) Plasma cells: no significant population detected MRD sent: Yes A bone marrow aspirate smear prepared from the flow cytometry specimen has been reviewed for quality lab technician purposes. Please correlate with morphologic review of the bone marrow ([id number]). 10/30/2024 9:15 AM [facility] Flow Cytometry Results Differential Result Comment Flow Cell Count /uL 840 Total Viability % 95.0 Lymphocytes % 54 Dim CD45 Region % 6 Monocytes % 4 Granulocytes % 36 10/30/2024 9:15 AM [facility] Reason for test Acute myeloid leukemia 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) 10/30/2024 9:15 AM [facility] Client Specimen ID # [id number] 10/30/2024 9:15 AM [facility] Number of markers 19 were performed. A-2 Flow CD10 A-3 Flow CD13 A-5 Flow CD20 A-11 Flow CD2 A-13 Flow CD14 A-16 Flow CD117 A-17 Flow CD11b A-18 Flow CD11c A-1 Flow CD5 A-4 Flow CD19 A-6 Flow CD33 A-7 Flow CD34 A-8 Flow CD45 A-12 Flow CD7 A-14 Flow CD56 A-15 Flow CD64 A-9 [place]+CD19+ A-10 L[place]+CD19+ A-19 Flow HLA-DR 10/30/2024 9:15 AM [facility] Pathologist Location at [facility] 10/30/2024 9:15 AM [facility] Disclaimer Test performed at [facility], [address] [place] [address], [id number]. *The established laboratory minimum viability is 70%. [...] qualified to perform high complexity clinical testing. 10/30/2024 9:15 AM CDT [facility] Embedded Images 9:15 AM CDT [facility] Pathology/Cytolo gy BONE MARROW SPECIMEN / Unknown Collection / Unknown 10/29/2024 1:05 PM CDT 10/29/2024 1:19 PM CDT Cindy Garcia MD LAB - PATHOLOGY/CYTOLOGY ORDERAB LES Final Result Performing Organization Address City/State/[facility] Co de Phone Number [facility] [address] [phone] * BONE MARROW BIOPSY (STL) (10/29/2024 1:05 PM CDT) Case Report Bone Marrow Patholog y Report Case: [id number] Authorizing Provider: Cindy Garcia MD Collected: 10/29/2024 01:05 PM Ordering Location: [facility] Received: 10/29/2024 01:19 PM Pathologist: Daniela Bronson MD Specimens: A) - Bone Marrow Clot B) - Bone Marrow Core C) - Bone Marrow Aspirate D) - Blood Peripheral 10/30/2024 3:20 PM CDT [facility] Final Diagnosis Bone marrow, iliac crest, core biopsy, clot section, and aspirate: - No morphologic evidence of residual acute myeloid leukemia in a hypercellular bone marrow (50% cellular) - 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 The bone marrow shows no morphologic evidence of residual acute myeloid leukemia. Flow cytometry identified less than 1% myeloblasts. Correlation with flow cytometry minimal residual disease (MRD) analysis, cytogenetics, FISH, and next-generation sequencing are needed to assess for minimal residual disease. 10/30/2024 3:20 PM [facility] Peripheral Smear Description Not provided 10/30/2024 3:20 PM [facility] Bone Marrow Aspirate Differential count (200 cells): 0% blasts, 9% maturing myeloid precursors, 80.5% erythroid progenitors, 2.5% monocytes, 0% eosinophils, 7.5% lymphocytes, 0.5% plasma cells. Specimen quality: adequate. Spicules: small. Trilineage Hematopoiesis: present. Myeloid:Erythroid ratio: decreased. Myeloid Maturation: hypoplastic. Erythroid Maturation: hyperplastic with mild dyspoiesis. Megakaryocyte morphology: normal nuclear lobation. Storage iron (by special stain): decreased. Sideroblastic iron (by special stain): no ring sideroblasts. 10/30/2024 3:20 PM [facility] Bone Marrow Core Biopsy and Clot Section Description Specimen quality: adequate with 1.5 cm of evaluable marrow. Cellularity: 50%; overall minor variability in cellularity is noted with areas appearing hypocellular, possibly secondary to aspiration artifact as hemorrhage is present, and other areas appear more hypercellular. Trilineage Hematopoiesis: present with marked erythroid hyperplasia and relative paucity of myeloid elements. Myeloid to Erythroid ratio: decreased. Myeloid maturation and localization: hypoplastic without obvious immaturity. Erythroid maturation and localization: hyperplastic. Megakaryocyte number: increased. Megakaryocyte distribution: small, loose clusters. Lymphoid aggregates: present. Bone trabeculae: normal. Blood vessels: normal. Plasma cells: normal. Clot section marrow particles: small. Clot section morphology: similar to core biopsy. 10/30/2024 3:20 PM [facility] Flow Cytometry Summary Bone marrow, flow cytometric immunophenotyping ([id number]): - 0.4% myeloblasts identified in a markedly paucicellular specimen; minimal residual disease (MRD) flow cytometry pending with addendum to follow - No significant B-cell population or immunophenotypic evidence of a plasma cell neoplasm 10/30/2024 3:20 PM [facility] Clinical History AML without having achieved remission 10/30/2024 3:20 PM [facility] Gross Description The requisition and specimen(s) are identified with the patient's name Russ Kern. Received in fresh, specimen A, clotis a 4.0 x 0.8 x 0.5 cm dark red blood clot. The specimen is bisected and entirely submitted in cassettes A1-A2. Received in formalin, specimen B, core, are 2 purple bony cores and associated hemorrhagic tissue, 1.5 x 0.3 x 0.3 cm and 0.2 x 0.2 x 0.2 cm. The specimen is decalcified in Rapid Osito immuno for 1 hour and entirely submitted in cassette B1. DF 10/30/2024 3:20 PM [facility] Microscopic Description Immunohistochemistry and special stains are performed on the core biopsy with reactive controls to further characterize the marrow. Immunohistochemistry is performed in addition to flow cytometry given the cellular heterogeneity marrow. A reticulin stain of the core biopsy highlights no significant increase in reticulin fibrosis. CD34, marker of blasts, highlights <5% of total cells. E-cadherin is positive in the immature cells in the marrow consistent with erythroblasts. A significant myeloblast population is not appreciated. 10/30/2024 3:20 PM [facility] Pathologist Location at [facility] 10/30/2024 3:20 PM [facility] Disclaimer The performance characteristics of all immunohistochemical and indirect immunofluorescence stains (if any) cited in this report were determined by the Histopathology Laboratory of [facility]. Some of these tests [...] and interpreted by the attending (teaching) pathologist. 10/30/2024 3:20 PM [facility] Embedded Images 10/30/2024 3:20 PM [facility] Pathology/Cytology PERIPHERAL BLOOD / Unknown Collection / Unknown 10/29/2024 1:05 PM CDT 10/29/2024 1:19 PM CDT Miscellaneous samples (specimen) BONE MARROW SPECIMEN / Unknown 10/29/2024 1:05 PM CDT 10/29/2024 1:19 PM CDT Miscellaneous samples (specimen) SPECIMEN FROM BONE MARROW OBTAINED BY ASPIRATION / Unknown 10/29/2024 1:05 PM CDT 10/29/2024 1:19 PM CDT Miscellaneous samples (specimen) PERIPHERAL BLOOD / Unknown 10/29/2024 1:05 PM CDT 10/29/2024 3:56 PM CDT us Cindy Garcia MD LAB - PATHOLOGY/CYTOLOGY ORDERAB LES Final Result Performing Organization Address City/[facility]/ZIP Co de Phone Number [facility] [address] [place] [address], [facility] [phone] * PT-INR (10/29/2024 11:46 AM CDT) Pathologist [facility] PT 14.5 12.1 - 14.8 Seconds 10/29/2024 1:05 PM CDT [facility] INR 1.1 See Comment 10/29/2024 1:05 PM T [facility] Comment:The suggested therap eutic range for standard coumadin (warfarin) therapy is an INR of 2.0-3.0. For high-risk patients (Mechanical Mitral Valve Prosthesis, etc.), the suggested prophylactic therapeutic range is an INR of 2.5-3.5. Blood BLOOD SPECIMEN / Unknown Venipuncture / Unknown 10/29/2024 11:46 AM CDT 10/29/2024 11:50 AM CDT us Bridgette Negro COMMUNICATIONS MEDIA PROFESSOR-[employer] LAB - COAGULA TION ORDERABLES Final Result Performing Organization Address [facility]/ZIP Co de Phone Number [facility] [address] [place] [address], [facility] [phone] * (ABNORMAL) PLATELET COUNT AUTO (10/29/2024 11:46 AM CDT) Platelet Count 41(L) 150 - 420 x10E9/L 10/29/2024 12:49 PM [facility] Blood BLOOD SPECIMEN / Unknown Venipuncture / Unknown 10/29/2024 11:46 AM CDT 10/29/2024 11:53 AM CDT Bridgette Negro COMMUNICATIONS MEDIA PROFESSOR-[employer] LAB - HEMATOL OGY ORDERABLES Final Result [facility] [address] [place] [address], [facility] [phone] * (ABNORMAL) DIFFERENTIAL MANUAL (10/07/2024 11:03 AM CDT) Only the most recent of9 resultswithin the time period is included. Neutrophil % 39(L) 41 - 74 % 10/07/2024 12:43 PM [facility] Lymphocyte % 45 17 - 47 % 10/07/2024 12:43 PM [facility] Monocyte % 15(H) 3 - 11 % 10/07/2024 12:43 PM [facility] Eosinophil % 1 0 - 7 % 10/07/2024 12:43 PM [facility] Neutrophil Absolute 0.66(L) 1.60 - 7.50 x10E9/L 10/07/2024 12:43 PM [facility] Lymphocyte Absolute 0.77(L) 1.00 - 4.40 x10E9/L 10/07/2024 12:43 PM [facility] Monocyte Absolute 0.26 0.15 - 1.00 x10E9/L 10/07/2024 12:43 PM [facility] Eosinophil Absolute 0.02 0.00 - 0.60 x10E9/L 10/07/2024 12:43 PM [facility] RBC Morphology REVIEWED 10/07/2024 12:43 PM [facility] Dimorphic RBC Population PRESENT(A) (none) 10/07/2024 12:43 PM [facility] Macrocytosis MODERATE(A) (none) 10/07/2024 12:43 PM [facility] Schistocytes FEW(A) (none) 10/07/2024 12:43 PM [facility] Blood BLOOD SPECIMEN / Unknown Venipuncture / Unknown 10/07/2024 11:03 AM CDT 10/07/2024 11:21 AM CDT us Cindy Garcia MD LAB - HEMATOLOGY ORDERABLES Jamila stern Result [facility] [address] [place] [address], [facility] [phone] * (ABNORMAL) CBC WITH DIFFERENTIAL (10/07/2024 11:03 AM CDT) Only the most recent of10 resultswithin the time period is included. WBC 1.7(L) 4.0 - 10.7 x10E9/L 10/07/2024 12:43 PM [facility] RBC Count 3.62(L) 4.30 - 5.80 x10E12/L 10/07/2024 12:43 PM [facility] Hemoglobin 12.4(L) 13.3 - 17.5 g/dL 10/07/2024 12:43 PM [facility] Hematocrit 36.4(L) 38.7 - 51.1 % 10/07/2024 12:43 PM [facility] MCV 100.6(H) 80.0 - 98.0 fL 10/07/2024 12:43 PM [facility] MCH 34.3(H) 26.7 - 33.6 pg 10/07/2024 12:43 PM [facility] MCHC 34.1 31.7 - 36.3 g/dL 10/07/2024 12:43 PM [facility] RDW-CV 21.0(H) 11.3 - 14.8 % 10/07/2024 12:43 PM [facility] Platelet Count 76(L) 150 - 420 x10E9/L 10/07/2024 12:43 PM [facility] Preliminary Absolute Neutrophil 0.58(L) 1.60 - 7.50 x10E9/L 10/07/2024 12:43 PM [facility] Comment:Preliminary ANC pend ing manual confirmation Blood BLOOD SPECIMEN / Unknown Venipuncture / Unknown 10/07/2024 11:03 AM CDT 10/07/2024 11:21 AM CDT us Cindy Garcia MD LAB - HEMATOLOGY ORDERABLES Jamila stern Result [facility] [address] [place] [address], [facility] [phone] * (ABNORMAL) COMPREHENSIVE METABOLIC PANEL (10/07/2024 11:03 AM CDT) Only the most recent of8 resultswithin the time period is included. BUN 18 7 - 26 mg/dL 10/07/2024 11:54 AM [facility] Creatinine 1.20(H) 0.71 - 1.16 mg/dL 10/07/2024 11:54 AM [facility] Sodium 140 136 - 145 mmol/L 10/07/2024 11:54 AM [facility] Potassium 4.4 3.5 - 4.5 mmol/L 10/07/2024 11:54 AM [facility] Chloride 111(H) 98 - 107 mmol/L 10/07/2024 11:54 AM [facility] CO2 23 22 - 29 mmol/L 10/07/2024 11:54 AM [facility] Glucose 96 70 - 99 mg/dL 10/07/2024 11:54 AM [facility] Calcium 9.0 8.4 - 10.2 mg/dL 10/07/2024 11:54 AM [facility] Protein Total 6.3 6.0 - 8.3 g/dL 10/07/2024 11:54 AM [facility] Albumin 4.0 3.4 - 5.0 g/dL 10/07/2024 11:54 AM [facility] Bilirubin Total 0.4 0.2 - 1.2 mg/dL 10/07/2024 11:54 AM [facility] Alkaline Phosphatase 148 40 - 150 U/L 10/07/2024 11:54 AM [facility] ALT 31 5 - 55 U/L 10/07/2024 11:54 AM [facility] AST 19 5 - 34 U/L 10/07/2024 11:54 AM [facility] Anion Gap 6 6 - 16 10/07/2024 11:54 AM [facility] BUN/Creatinine Ratio 15 7 - 23 10/07/2024 11:54 AM [facility] Osmolality Calculated 292 275 - 295 mOsm/kg 10/07/2024 11:54 AM [facility] Albumin/Globulin Ratio 1.7 1.1 - 2.3 10/07/2024 11:54 AM [facility] eGFR by CKD-EPI 62(L) >=90 mL/min/1.7 3 m2 10/07/2024 11:54 AM [facility] Blood BLOOD SPECIMEN / Unknown Venipuncture / Unknown 10/07/2024 11:03 AM T 10/07/2024 11:[address] [facility] - 10/07/2024 11:54 AM [facility] Estimated Glomerular Filtration Rate (eGFR) calculated using the CKD-EPI Creatinine Equation (2020), per the National Kidney Foundation and [place] [employer] Neph[employer] recommendations. us Cindy Garcia MD LAB - CHEMISTRY ORDERABLES Final Result [facility] [address] [place] [address], [facility] [phone] * EKG 12-Lead (08/23/2024 1:51 PM CDT) Only the most recent of4 resultswithin the time period is included. Ventricular Rate 71 BPM [facility] Atrial Rate 71 BPM [facility] P-R Interval 128 ms [facility] QRS Duration ms 126 ms [facility] Q-T Interval ms 426 ms [facility] QTC Calculation (Bezet) 462 ms [facility] Calculated P [place] 44 degrees [facility] Calculated R [place] 40 degrees [facility] Calculated T [place] 51 degrees [facility] Interpretation EKG SINUS RHYTHM WITH PREMATURE ATRIAL COMPLEXES RIGHT BUNDLE BRANCH BLOCK T WAVE ABNORMALITY, CONSIDER LATERAL ISCHEMIA ABNORMAL ECG WHEN COMPARED WITH ECG OF 11-AUG-2024 12:16, T WAVE INVERSION LESS EVIDENT IN LATERAL LEADS Confirmed by SHANTI MARTINEZ, DENA POWELL ([id number]) on 09/14/2024 6:38:47 PM NIA JUAREZ 08/23/2024 1:51 PM CDT 09/14/2024 6:38 PM CDT Tracey Pond COMMUNICATIONS MEDIA PROFESSOR-[employer]ER ECG ORDERABLES Edited R esult - Final NIA JUAREZ * (ABNORMAL) RENAL FUNCTION PANEL (08/11/2024 5:46 AM CDT) Only the most recent of2 resultswithin the time period is included. BUN 9 7 - 26 mg/dL 08/11/2024 6:35 AM [facility] Creatinine 0.97 0.71 - 1.16 mg/dL 08/11/2024 6:35 AM [facility] Sodium 141 136 - 145 mmol/L 08/11/2024 6:35 AM [facility] Potassium 3.8 3.5 - 4.5 mmol/L 08/11/2024 6:35 AM [facility] Chloride 109(H) 98 - 107 mmol/L 08/11/2024 6:35 AM [facility] CO2 23 22 - 29 mmol/L 08/11/2024 6:35 AM [facility] Glucose 112(H) 70 - 99 mg/dL 08/11/2024 6:35 AM [facility] Albumin 3.1(L) 3.4 - 5.0 g/dL 08/11/2024 6:35 AM [facility] Calcium 8.7 8.4 - 10.2 mg/dL 08/11/2024 6:35 AM [facility] Phosphorus 3.2 2.8 - 5.1 mg/dL 08/11/2024 6:35 AM [facility] Anion Gap 9 6 - 16 08/11/2024 6:35 AM [facility] BUN/Creatinine Ratio 9 7 - 23 08/11/2024 6:35 AM T [facility] Osmolality Calculated 291 275 - 295 mOsm/kg 08/11/2024 6:35 AM T [facility] eGFR by CKD-EPI 79(L) >=90 mL/min/1.7 3 m2 08/11/2024 6:35 AM T [facility] Blood BLOOD SPECIMEN / Unknown Lab Venipuncture / Unknown 08/11/2024 5:46 AM CDT 08/11/2024 6:04 AM CDT us Chip Lopez MD LAB - CHEMISTRY ORDERABLES Final Result [address] [address], [place] [phone] * MAGNESIUM BLOOD (08/11/2024 5:46 AM CDT) Only the most recent of4 resultswithin the time period is included. Magnesium 1.9 1.6 - 2.6 mg/dL 08/11/2024 6:35 AM T [facility] Blood BLOOD SPECIMEN / Unknown Lab Venipuncture / Unknown 08/11/2024 5:46 AM CDT 08/11/2024 6:04 AM CDT us Chip Lopez MD LAB - CHEMISTRY ORDERABLES Final Result [address] [address], [place] [phone] * (ABNORMAL) CBC W/O DIFFERENTIAL (08/09/2024 4:50 AM CDT) WBC 0.5(LL) 4.0 - 10.7 x10E9/L 08/09/2024 9:26 AM T [facility] RBC Count 3.20(L) 4.30 - 5.80 x10E12/L 08/09/2024 9:26 AM T [facility] Hemoglobin 9.9(L) 13.3 - 17.5 g/dL 08/09/2024 9:26 AM [facility] Hematocrit 28.9(L) 38.7 - 51.1 % 08/09/2024 9:26 AM [facility] MCV 90.3 80.0 - 98.0 fL 08/09/2024 9:26 AM [facility] MCH 30.9 26.7 - 33.6 pg 08/09/2024 9:26 AM [facility] MCHC 34.3 31.7 - 36.3 g/dL 08/09/2024 9:26 AM [facility] RDW-CV 20.3(H) 11.3 - 14.8 % 08/09/2024 9:26 AM [facility] Platelet Count 69(L) 150 - 420 x10E9/L 08/09/2024 9:26 AM [facility] Blood BLOOD SPECIMEN / Unknown Venipuncture / Unknown 08/09/2024 4:50 AM CDT 08/09/2024 5:09 AM CDT Polly Palomino PA-C LAB - HEMATOLOGY ORDERA BLES Edited Result - Final [address] [address], [facility] [phone] * (ABNORMAL) BASIC METABOLIC PANEL (CALCIUM TOTAL) (08/09/2024 4:50 AM CDT) BUN 9 7 - 26 mg/dL 08/09/2024 5:37 AM [facility] Creatinine 0.97 0.71 - 1.16 mg/dL 08/09/2024 5:37 AM [facility] Sodium 141 136 - 145 mmol/L 08/09/2024 5:37 AM [facility] Potassium 3.8 3.5 - 4.5 mmol/L 08/09/2024 5:37 AM [facility] Chloride 110(H) 98 - 107 mmol/L 08/09/2024 5:37 AM [facility] CO2 24 22 - 29 mmol/L 08/09/2024 5:37 AM T [facility] Glucose 117(H) 70 - 99 mg/dL 08/09/2024 5:37 AM [facility] Calcium 8.6 8.4 - 10.2 mg/dL 08/09/2024 5:37 AM [facility] Anion Gap 7 6 - 16 08/09/2024 5:37 AM [facility] BUN/Creatinine Ratio 9 7 - 23 08/09/2024 5:37 AM [facility] Osmolality Calculated 292 275 - 295 mOsm/kg 08/09/2024 5:37 AM [facility] eGFR by CKD-EPI 79(L) >=90 mL/min/1.7 3 m2 08/09/2024 5:37 AM [facility] Blood BLOOD SPECIMEN / Unknown Venipuncture / Unknown 08/09/2024 4:50 AM CDT 08/09/2024 5:09 AM CDT Polly Palomino PA-C LAB - CHEMISTRY ORDERAB LES Final Result [address] [address], [place] [phone] * (ABNORMAL) PHOSPHORUS BLOOD (08/09/2024 4:50 AM CDT) Phosphorus 2.7(L) 2.8 - 5.1 mg/dL 08/09/2024 5:37 AM T [facility] Blood BLOOD SPECIMEN / Unknown Venipuncture / Unknown 08/09/2024 4:50 AM CDT 08/09/2024 5:09 AM CDT us Polly Deterding PA-C LAB - CHEMISTRY ORDERAB LES Final Result [facility] [address] [place] [address], [place] [phone] * LACTIC ACID BLOOD REFLEX TO REPEAT (08/08/2024 9:45 PM CDT) Only the most recent of4 resultswithin the time period is included. Lactic Acid-Stat 1.5 <=2.0 mmol/L 08/08/2024 10:19 PM [facility] Blood BLOOD SPECIMEN / Unknown Venipuncture / Unknown 08/08/2024 9:45 PM CDT 08/08/2024 9:52 PM CDT us Pollo Wright MD LAB - CHEMISTRY ORDERABLES F inal Result [facility] [address] [place] [address], [facility] [phone] * (ABNORMAL) URINALYSIS W/MICROSCOPIC NO CULTURE (08/08/2024 9:16 PM CDT) Color UA Colorless(A ) Yellow, Straw 08/08/2024 9:45 PM [facility] Clarity UA Clear Clear 08/08/2024 9:45 PM [facility] Glucose UA Normal Normal 08/08/2024 9:45 PM [facility] Bilirubin UA Negative Negative 08/08/2024 9:45 PM [facility] Ketone UA Negative Negative 08/08/2024 9:45 PM [facility] Specific [place] UA 1.011 1.005 - 1.030 08/08/2024 9:45 PM [facility] Blood UA Negative Negative 08/08/2024 9:45 PM [facility] pH UA 6.0 5.0 - 9.0 pH 08/08/2024 9:45 PM [facility] Protein UA Negative Negative 08/08/2024 9:45 PM [facility] Urobilinogen UA Normal Normal mg/dL 08/08/2024 9:45 PM [facility] Nitrite UA Negative Negative 08/08/2024 9:45 PM [facility] Leukocyte Esterase UA Negative Negative 08/08/2024 9:45 PM [facility] RBC UA 0-2 0 - 5 # /hpf 08/08/2024 9:45 PM [facility] WBC UA 0-5 0 - 5 # /hpf 08/08/2024 9:45 PM CDT [facility] Bacteria UA None Seen None Seen 08/08/2024 9:45 PM CDT [facility] Squamous Epithelial Cells None Seen 0 - 5 /hpf 08/08/2024 9:45 PM CDT [facility] Urine URINE SPECIMEN OBTAINED BY CLEAN CATCH PROCEDURE / Unknown Collection / Unknown 08/08/2024 9:16 PM CDT 08/08/2024 9:25 PM CDT Manju Zuleta PA-C LAB - URINALYSIS ORDE RABLES Final Result Performing Organization Address City/[facility]/ZIP Co de Phone Number [address] [address], [place] [phone] * TROPONIN-I HIGH SENSITIVE REFLEX 1HOUR (08/08/2024 2:34 PM CDT) Troponin I High Sensitive 11 <=35 ng/L 08/08/2024 3:12 PM CDT [facility] Delta Troponin I HS 08/08/2024 3:12 PM CDT [facility] Comment:Delta value intentio bc not calculated. Baseline to 1 hour specimen collection interval exceeded. Blood BLOOD SPECIMEN / Unknown Venipuncture / Unknown 08/08/2024 2:34 PM CDT 08/08/2024 2:39 PM CDT Manju Zuleta PA-C LAB - CHEMISTRY ORDER JOVON Final Result [address] [address], [place] [phone] * CT Chest Pe W Abd Pelvis [...] levels. > Dictated by Michele Chen MD, (resident care manager rn). I, Erasmo rBown have personally reviewed and interpreted this examination/study. > Interpreting Provider: Erasmo Brown on 08/08/2024 3:30 PM Narrative 08/08/2024 3:30 PM CDT PROCEDURE: CT CHEST PE W ABD PELVIS W CONT, DATE/TIME OF EXAM: 08/08/2024 1:57 PM, LOCATION [facility] INDICATION: R07.9: Chest pain, unspecified type ADDITIONAL [...] CONT, DATE/TIME OF EXAM:08/08/2024 1:57 PM, LOCATION [facility] INDICATION: R07.9: Chest pain, unspecified type ADDITIONAL [...] levels. > Dictated by Michele Chen MD, (resident care manager rn). IErasmo have personally reviewed and interpreted this examination/study. > Interpreting Provider: Erasmo Brown on 08/08/2024 3:30 PM Mustapha Hawkins MD CT ORDERABLES Final Result * SARS-COV-2 (COVID-19)+INFLU A+B PCR RAPID (08/08/2024 1:11 PM CDT) COVID-19 PCR Not detected Not detected 08/09/19 25 2:07 PM CDT [facility] Influenza A Rapid DAGO Not Detected Not Detected 08/08/2024 2:07 PM CDT [facility] Influenza B DAGO Rapid Not Detected Not Detected 08/08/2024 2:07 PM CDT [facility] Microbiology SPECIMEN FROM NASOPHARYNGEAL STRUCTURE / Unknown Collection / Unknown 08/08/2024 1:11 PM CDT 08/08/2024 1:28 PM CDT [facility] - 08/08/2024 2:07 PM CDT Influenza assay [...] acid amplification assay performance was validated by [facility]. This test has been authorized by the [...] LAB - MICROBIOLOGY OR DERABLES Final Result Performing Organization Address City/[facility]/ZIP Co de Phone Number [address] [address], [place] [phone] * CULTURE BLOOD (08/08/2024 1:08 PM CDT) Only the most recent of2 resultswithin the time period is included. [facility] Culture No growth day 5 EMILIANA 08/13/2024 5:02 PM CDT [facility] MICROBIOLOG[facility] Blood PERIPHERAL BLOOD / Unknown Venipuncture / Unknown 08/08/2024 1:08 PM CDT 08/08/2024 1:11 PM CDT us Mustapha Hawkins MD LAB - MICROBIOLOGY ORDERABLES Final Result Performing Organization Address City/[facility]/ZIP Co de Phone Number [facility] MICRO[facility] [address] [place] [address], [facility] [phone] * (ABNORMAL) PROCALCITONIN LEVEL (08/08/2024 1:03 PM CDT) Pathologist [facility] PROCALCITONIN 0.22(H) <=0.10 ng/mL 08/08/2024 2:08 PM CDT [facility] Blood BLOOD SPECIMEN / Unknown Venipuncture / Unknown 08/08/2024 1:03 PM CDT 08/08/2024 1:11 PM CDT Narrative [facility] - 08/08/2024 2:08 PM CDT [...] Change in Procalcitonin Calculator is available at [email or web address] If clinical picture has not improved and PCT remains high, reevaluate and consider treatment failure or other causes. us Mustapha Hawkins MD LAB - CHEMISTRY ORDERABLES Fin al Result Performing Organization Address City/[facility]/ZIP Co de Phone Number [facility] [address] [place] [address], [facility] [phone] * TROPONIN-I HIGH SENSITIVE BASELINE + 1HR (08/08/2024 1:03 PM CDT) Troponin I High Sensitive 14 <=35 ng/L 08/08/2024 1:52 PM CDT [facility] Blood BLOOD SPECIMEN / Unknown Venipuncture / Unknown 08/08/2024 1:03 PM CDT 08/08/2024 1:13 PM CDT us Manju Zuleta PA-C LAB - CHEMISTRY ORDER JOVON Final Result Performing Organization Address City/[facility]/ZIP Co de Phone Number [address] [address], [place] [phone] * LIPASE BLOOD (08/08/2024 1:03 PM CDT) Lipase 16 8 - 78 U/L 08/08/2024 1:46 PM CDT [facility] Blood BLOOD SPECIMEN / Unknown Venipuncture / Unknown 08/08/2024 1:03 PM CDT 08/08/2024 1:13 PM CDT Narrative [facility] - 08/08/2024 1:46 PM CDT Lipase results from the [employer] Alinity analyzer may not be comparable with other methodologies. Mustapha Hawkins MD LAB - CHEMISTRY ORDERABLES Fin al Result Performing Organization Address [facility] Co de Phone Number [address] [address], [place] [phone] * (ABNORMAL) CK BLOOD (08/08/2024 1:03 PM CDT) CK Total 18(L) 30 - 200 U/L 08/08/2024 1:46 PM CDT [facility] Blood BLOOD SPECIMEN / Unknown Venipuncture / Unknown 08/08/2024 1:03 PM CDT 08/08/2024 1:13 PM CDT us Mustapha Hawkins MD LAB - CHEMISTRY ORDERABLES Fin al Result Performing Organization Address [facility]/ZIP Co de Phone Number [address] [address], [place] [phone] * XR CHEST 2VW (08/08/2024 12:15 PM CDT) Anatomical Region Laterality Modality Chest Digital Radiogra phy 08/08/2024 1:01 PM CDT Narrative 08/08/2024 1:09 PM CDT PROCEDURE: XR CHEST 2VW, DATE/TIME OF EXAM: 08/08/2024 12:42 PM, LOCATION [facility] INDICATION: R07.9: Chest pain, unspecified type ADDITIONAL [...] clips. Report dictated by Jaydon Umaña MD, (Cigar Wrapper Tender Automatic). Fredo Post MD have personally reviewed and interpreted this examination/study. > Interpreting Provider: Fredo Pearson MD on 08/08/2024 1:09 PM Procedure Note Fredo Pearson MD - 08/08/2024 PROCEDURE: XR CHEST 2VW, DATE/TIME OF EXAM: 08/08/2024 12:42 PM, LOCATION [facility] INDICATION: R07.9: Chest pain, unspecified type ADDITIONAL [...] clips. Report dictated by Jaydon Umaña MD, (Cigar Wrapper Tender Automatic). Fredo Post MD have personally reviewed and interpreted this examination/study. > Interpreting Provider: Fredo Pearson MD on 08/08/2024 1:09 PM Manju Zuleta PA-C DIAGNOSTIC IMAGING OR DERABLES Final Result from Last 3 Months Insurance [employer] MEDICARE ADV [id number] [id number] [facility] [id number] Advance Directives * Full Code (Latest Code Status on File) Date Activated Date Inactivated Comments 08/08/2024 4:19 PM 08/11/2024 7:29 PM * Full Code Date Activated Date Inactivated Comments 03/13/2024 9:41 PM 03/23/2024 2:56 PM Care Teams Manager Mobility Relationship Specialty Start Date End Date Timothy Banks MD [address] [place] [address] PCP - General 10/19/18 Cindy Garcia MD [address] [place] [address] Informatics Manager/Oncologis t Hematology and Oncology 03/24/24
--- OUTSIDE RECORDS SUMMARY | 2024-11-04 10:39 | XMS_ITS | Encounter Summary ---
Author Organization [facility] Address [address] [facility] [place] [address] Care Team Providers Care Assistant Professor Surgical Technology Name Role Phone Timothy Banks MD Primary Care Provider [phone] Cindy Garcia MD Unavailable Encounter Details Date Type Department Care Team (Late st Contact Info) Description 2024 Orders Only [facility] - Hematology/Oncology [address] [place] [phone] Cindy Garcia MD [address] [place] [address] Vitamin D deficiency Social History Tobacco Use Types Packs/Day Years [...] Recorded Patient Health Questionnaire-2 Score 0 09/23/2024 [place] [facility] ional [facility] - Occupational Stress [...] any time in the past 12 m [facility], were you homeless or living in a intermediate (including now)? No 03/13/2024 Sex and Gender Information Value Date Recorded Sex Assigned at Male 03/05/2024 8:04 AM CABLE TENDER Legal Sex Male 6:32 PM CABLE TENDER Gender Identity Male 03/05/2024 8:04 AM CABLE TENDER Sexual Orientation Straight 03/05/2024 8: 04 AM CABLE TENDER documented as of this encounter Functional Status * Is person deaf or have serious hearing difficulty? Answer Date of Assessment Author No 10/29/2024 1:14 PM Patricia Jeff RN * Is person blind or have serious difficulty seeing? Answer Date of Assessment Author No 10/29/2024 1:14 PM MARINAT Patricia Yanes RN * Does person have serious difficulty walking/climbing stairs? Answer Date of Assessment Author Yes 10/29/2024 1:14 PM Patricia Jeff RN * Does person have difficulty dressing/bathing? Answer Date of Assessment Author No 10/29/2024 1:14 PM CDT Patricia Yanes RN * Does person have difficulty doing errands alone? Answer Date of Assessment Author Yes 10/29/2024 1:14 PM CDT Patricia Yanes RN documented as of this encounter Mental Status * Does person have difficulty concentrating/remembering/making decisions? Answer Entry Date Author No 10/29/2024 1:14 PM CDT Patricia Yanes RN documented in this encounter Plan of Treatment Upcoming Encounters Date Type Department Care Team (Late st Contact Info) Description 11/11/2024 8:20 AM CDT Hospital Encounter [facility] [address] [place] [address] Timothy Banks MD [address] [place] [phone] 11/11/2024 9:00 AM CDT Office Visit [facility] - Hematology/Oncology [address] [place] [phone] Stephanie Connolly, CANAL STRUCTURE OPERATOR-EDUCATION FACULTY MEMBER [address] [place] [phone] 11/12/2024 8:30 AM CDT Appointment [facility] [address] [place] [address] Timothy Banks MD [address] [place] [phone] 11/13/2024 8:30 AM CDT Appointment [facility] [address] [place] [address] Timothy Banks MD [address] [place] [phone] 11/14/2024 8:30 AM CDT Appointment [facility] [address] [place] [address] Timothy Banks MD [address] [place] [phone] 11/15/2024 8:30 AM CDT Appointment [facility] [place] [address] Timothy Banks MD [address] [place] [address] 11/22/2024 1:00 PM CDT Office Visit [facility] - Cardiology [address] [facility] [address] [place] [address] Kaushal Archer MD [address] [place] [phone] 12/10/2024 9:00 AM CDT Appointment [facility] [place] [address] Timothy Banks MD [address] [place] [address] Scheduled Orders Name Type Priority Associated Diagnoses Orde r Schedule VITAMIN D 25-HYDROXY Lab Routine Vitamin D deficiency 1 Occurrences starting 2024 until 12/04/2025 documented as of this encounter Visit Diagnoses Diagnosis Vitamin D deficiency- Primary documented in this encounter Care Teams Assistant Professor Surgical Technology Relationship Specialty Start Date End Date Timothy Banks MD [address] [place] [phone] PCP - General 10/19/18 Cindy Garcia MD [facility] [place] [address] Saw Superintendent/Oncologis t Hematology and Oncology 03/24/24 documented as of this encounter
--- OUTSIDE RECORDS SUMMARY | 2024-11-04 10:39 | XMS_ITS | Encounter Summary ---
Author Organization [facility] Address [address] [facility] [place] [address] Care Team Providers Care City Wellness Coordinator Name Role Phone Timothy Banks MD Primary Care Provider [phone] Cindy Garcia MD Unavailable Encounter Details Date Type Department Care Team (Late Contact Info) Description 02/12/2024 Lab Requisition [facility] - Pathology Lab [address] [place] [address] Rommel Dinh MD [address] [place] [address] Decreased white blood cell count, unspecified Social History Tobacco Use Types Packs/Day Years Used Date Smoking Tobacco: Never Assessed Sex and Gender Information Value Date Recorded Sex Assigned at Male 03/05/2024 8:04 AM TMD TEACHER Legal Sex Male 6:32 PM TMD TEACHER Gender Identity Male 03/05/2024 8:04 AM TMD TEACHER Sexual Orientation Straight 03/05/2024 8: 04 AM TMD TEACHER documented as of this encounter Plan of Treatment Upcoming Encounters Date Type Department Care Team (Late Contact Info) Description 11/11/2024 8:20 AM CDT Hospital Encounter [facility] [address] [place] [address] Timothy Banks MD [address] [place] [address] 11/11/2024 9:00 AM CDT Office Visit [facility] - Hematology/Oncology [address] [place] [phone] Stephanie Connolly APRN-DIRECTOR MARKETING [address] [place] [phone] 11/12/2024 8:30 AM CDT Appointment [facility] [address] [place] [address] Timothy Banks [place] [address] [place] [address] 11/13/2024 8:30 AM CDT Appointment [facility] [address] [place] [address] Timothy Banks MD [address] [place] [address] 11/14/2024 8:30 AM CDT Appointment [facility] [address] [place] [address] Timothy Banks MD [address] [place] [address] 11/15/2024 8:30 AM CDT Appointment [facility] [address] [place] [address] Timothy Banks MD [address] [place] [address] 11/22/2024 1:00 PM CDT Office Visit [facility] - Cardiology [address] [facility] [address] [place] [address] Kaushal Archer MD [address] [place] [address] 12/10/2024 9:00 AM CDT Appointment [facility] [address] [place] [address] Timothy Banks MD [address] [place] [address] documented as of this encounter Procedures Procedure Name Priority Date/Time Associated Diagnosis Comments FLOW CYTOMETRY BONE MARROW Routine 02/12/2024 9:20 AM TMD TEACHER Decreased white blood cell count, unspecified documented in this encounter Results * FLOW CYTOMETRY BONE MARROW (02/12/2024 9:20 AM TMD TEACHER) Case Report Flow Cytometry Case: [id number] Authorizing Provider: Rommel Dinh Collected: 02/12/2024 09:20 AM MD Luke Ordering Location: [facility] - Received: 02/12/2024 12:12 PM Pathology Lab Pathologist: Daniela Bronson MD Specimen: Bone Marrow 02/12/2024 3:44 PM TMD TEACHER [facility] Final Diagnosis Bone marrow, flow [...] on 02/12/2024 at 1539. 02/12/2024 3:44 PM TMD TEACHER [facility] at 1544 TMD TEACHER Flow Cytometry Interpretation Viability: 97% B-cells: 6% [...] cytometry specimen has been reviewed for quality internship purposes. Review the bone marrow aspirate smears reveals 20% blasts with only rare promyelocytes identified. Carolyn rods are not seen. 02/12/2024 3:44 PM [facility] Flow Cytometry Results Differential Result Comment Flow Cell Count /uL 20,700 Total Viability % 97.0 Lymphocytes % 12 Dim CD45 Region % 44 Monocytes % 1 Granulocytes % 42 02/12/2024 3:44 PM [facility] Reason for test Decreased white blood cell count, unspecified 02/12/2024 3:44 PM [facility] Client Specimen ID # [id number] 02/12/2024 3:44 PM [facility] Number of markers 29 [...] CD56 A-20 Flow CD64 A-28 cyCD22 A-29 [id number] A-16 Winifred+CD19+ A-17 Lambda+CD19+ A-24 Flow HLA-DR A-25 Flow MPO A-26 Flow TdT A-27 cyCD3 02/12/2024 3:44 PM [facility] Pathologist Location at [facility] 02/12/2024 3:44 PM [facility] Disclaimer Test performed at [facility], [address] [place] [address], [address]. *The established laboratory minimum viability is 70%. [...] high complexity clinical testing. 02/12/2024 3:44 PM TMD TEACHER [facility] Embedded Images 3:44 PM TMD TEACHER [facility] Pathology/Cytolo gy BONE MARROW SPECIMEN / Unknown 02/12/2024 9:20 AM TMD TEACHER 02/12/2024 12:12 PM TMD TEACHER Rommel Dinh MD LAB - PATHOLOGY/CYT OLOGY ORDERABLES Final Result [facility] [address] [place], [place] [address] [phone] documented in this encounter Visit Diagnoses Diagnosis Decreased white blood cell count, unspecified documented in this encounter Additional Health Concerns Infection Onset Date Last Indicated Resolved Time COVID-19 Under Investigation 08/08/2024 08/08/2024 08/08/2024 2:07 PM CDT documented as of this encounter Care Teams City Wellness Coordinator Relationship Specialty Start Date End Date Timothy Banks MD [address] [place] [phone] PCP - General 10/19/18 Cindy Garcia MD [address] [place] [address] Pickle Processor/Oncologis t Hematology and Oncology 03/24/24 documented as of this encounter
--- OUTSIDE RECORDS SUMMARY | 2024-11-04 10:39 | XMS_ITS | Clinical Summary ---
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) 10/29/2024 Orders Only [facility] Oncology and Hematology - [address] [place] [address] Frank Singh MD 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) 10/28/2024 Orders Only [facility] Oncology and Hematology - [address] [place] [address] Frank Singh MD 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) 10/23/2024 External Device Data STL ABSTRACTION Provider, Abstract 10/22/2024 External Device Data STL ABSTRACTION Provider, Abstract 10/22/2024 Orders Only [facility] Oncology and Hematology [address] [place] [phone] Frank Singh MD 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) 10/21/2024 Orders Only [facility] Oncology and Hematology [address] [place] [address] Frank Singh MD 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) 10/15/2024 Orders Only [facility] Oncology and Hematology [address] [place] [address] Frank Singh MD 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) 10/14/2024 Orders Only [facility] Oncology and Hematology - [address] [place] [address] Frank Singh MD 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) 10/08/2024 Orders Only [facility] Oncology and Hematology - [address] [place] [address] Frank Singh MD 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) 10/07/2024 Orders Only [facility] Oncology and Hematology - [address] [place] [address] Frank Singh MD 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) 10/01/2024 Orders Only [facility] Oncology and Hematology - [address] [place] [address] Frank Singh MD 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) 09/30/2024 Orders Only [facility] Oncology and Hematology - [address] [place] [phone] Frank Singh MD 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) 09/24/2024 External Device Data STL ABSTRACTION Provider, Abstract 09/24/2024 Orders Only [facility] Oncology and Hematology - [address] Frank Singh MD 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) 09/23/2024 Orders Only [facility] Oncology and Hematology - [address] [place] [phone] Frank Singh MD 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) 09/17/2024 Orders Only [facility] Oncology and Hematology - [place] [address] [place] [phone] Frank Singh MD 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) 09/16/2024 Orders Only [facility] Oncology and Hematology - [address] Frank Singh MD 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) 09/13/2024 Orders Only [facility] Oncology and Hematology - [address] [place] [phone] Frank Singh MD 09/10/2024 Orders Only [facility] Oncology and Hematology - [address] [place] [phone] Frank Singh MD 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) 09/09/2024 Orders Only [facility] Oncology and Hematology - [place] [address] [place] [address] Frank Singh MD 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) 09/03/2024 Orders Only [facility] Oncology and Hematology - [place] [address] Frank Singh MD 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) 09/02/2024 Orders Only [facility] Oncology and Hematology - [address] Frank Singh MD 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) 08/29/2024 External Device Data STL ABSTRACTION Provider, Abstract 08/27/2024 External Device Data STL ABSTRACTION Provider, Abstract 08/27/2024 Orders Only [facility] Oncology and Hematology - [place] [address] Frank Singh MD 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) 08/26/2024 Orders Only [facility] Oncology and Hematology - [place] [address] Frank Singh MD 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) 08/20/2024 Orders Only [facility]cology and Hematology - [place] [address] Frank Singh MD 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) 08/19/2024 Orders Only [facility] Oncology and Hematology - [place] [address] Frank Singh MD 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) 08/13/2024 Orders Only [facility] Oncology and Hematology - [place] [address] Frank Singh MD 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) 08/12/2024 Orders Only [facility] Oncology and Hematology - [place] [address] Frank Singh MD 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) 08/06/2024 Orders Only [facility] Oncology and Hematology - [address] [place] [address] Frank Singh MD 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) 08/05/2024 Orders Only [facility] Oncology and Hematology [address] [place] [address] Frank Singh MD Acute myeloid [...] Sex Assigned at Male 04/05/2024 3:07 PM GLYCERINE PLANT OPERATOR Legal Sex Male 10:53 AM CDT Gender Identity Male 04/05/2024 3:07 PM GLYCERINE PLANT OPERATOR Sexual Orientation Not on file Last Filed [...] ZOSTER VACCINE (2 of 2) 02/29/2020 01/04/2020 COVID-19 Vaccine (2023-2 5 season) 2023 04/14/2021 Medicare [place] Preventative Visit/Annual Wellness Visit 04/10/2024 INFLUENZA VACCINE (#1) 2024 1, 01/09/2020, 01/04/2020, Additional history exists DTAP/TDAP/TD VACCINES (2 - T d or Tdap) 09/17/2028 09/17/2018 PNEUMOCOCCAL VACCINE 50+ YEARS Completed 09/17/2018 , 08/27/2015 Procedures Procedure Name Priority Date/Time Associated Diagnosis Comments BASIC METABOLIC PANEL Routine 09/16/2024 3:05 PM CDT CBC WITH AUTODIFFERENTIAL Routine 2024 12:24 PM CDT CBC WITH DIFFERENTIAL Routine 09/06/2024 12:09 PM CDT BASIC METABOLIC PANEL Routine 09/06/2024 12:08 PM CDT from Last 3 Months Results * BASIC METABOLIC PANEL (09/16/2024 3:05 PM CDT) Only the most recent of2 resultswithin the time period is included. Blood us Frank Singh MD CHEMISTRY ORDERABLES Final Resu lt * CBC WITH AUTODIFFERENTIAL (09/16/2024 12:24 PM CDT) Blood us Frank Singh MD HEMATOLOGY ORDERABLES Final Res ult * CBC WITH DIFFERENTIAL (09/06/2024 12:09 PM CDT) Blood us Frank Singh MD HEMATOLOGY ORDERABLES Final Res ult from Last 3 Months Insurance [address] [place] [address] [employer] O [facility] Care Teams Neon Sign Erector Relationship Specialty Start Date End Date Timothy Banks MD [address] [place] [address] PCP - General Family Practice 02/01/24
== END 2024-11-04 10:10 | disposition home or self-care (01) ==
LOC: ANHLAB 10:12
PROVIDERS: PCP Family Medicine; Visit Provider Internal Medicine Hematology & Oncology
DX: C92.00 Acute myeloblastic leukemia, not having achieved remission (principal)
CPT/HCPCS: 36415; 80047; 85025; 85055

== ENCOUNTER 2024-11-18 09:39 | Outpatient (CLI) | payer MEDICARE, SELFPAY ==
--- OUTSIDE RECORDS SUMMARY | 2024-11-18 09:44 | XMS_ITS | Clinical Summary ---
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) 11/13/2024 External Device Data STL ABSTRACTION Provider, Abstract 11/12/2024 Orders Only [facility] - [place] [address] [place] [phone] Frank Singh MD 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) 11/11/2024 Orders Only [facility] - [place] [address] Frank Singh MD 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) 11/05/2024 Orders Only [facility] - [place] [address] Frank Singh MD 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) 11/04/2024 Orders Only [facility] - [place] [address] Frank Singh MD 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) 10/29/2024 Orders Only [facility] [address] Frank Singh MD 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) 10/28/2024 Orders Only [facility] [place] [address] Frank Singh MD 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) 10/23/2024 External Device Data STL ABSTRACTION Provider, Abstract 10/22/2024 External Device Data STL ABSTRACTION Provider, Abstract 10/22/2024 Orders Only [facility] - [place] [address] Frank Singh MD 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) 10/21/2024 Orders Only [facility] - [place] [address] Frank Singh MD 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) 10/15/2024 Orders Only [facility] - [place] [address] [place] [phone] Frank Singh MD 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) 10/14/2024 Orders Only [facility] - [place] [address] Frank Singh MD 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) 10/08/2024 Orders Only [facility] - [place] [address] [place] [address] Frank Singh MD 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) 10/07/2024 Orders Only [facility] - [place] [address] Frank Singh MD 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) 10/01/2024 Orders Only [facility] - [place] [address] Frank Singh MD 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) 09/30/2024 Orders Only [facility] - [place] [address] Frank Singh MD 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) 09/24/2024 External Device Data STL ABSTRACTION Provider, Abstract 09/24/2024 Orders Only [facility] - [place] [address] Frank Singh MD 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) 09/23/2024 Orders Only [facility] - [place] [address] [place] [phone] Frank Singh MD 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) 09/17/2024 Orders Only [facility] - [place] [address] Frank Singh MD 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) 09/16/2024 Orders Only [facility] - [place] [address] Frank Singh MD 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) 09/13/2024 Orders Only [facility] - [place] [address] Frank Singh MD 09/10/2024 Orders Only [facility] - [place] [address] [place] [phone] Frank Singh MD 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) 09/09/2024 Orders Only [facility] - [place] [address] [place] [phone] Frank Singh MD 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) 09/03/2024 Orders Only [facility] - [place] [address] [place] [phone] Frank Singh MD 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) 09/02/2024 Orders Only [facility] - [place] [address] [place] [phone] Frank Singh MD 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) 08/29/2024 External Device Data STL ABSTRACTION Provider, Abstract 08/27/2024 External Device Data STL ABSTRACTION Provider, Abstract 08/27/2024 Orders Only [facility] - [place] [address] [place] [phone] Frank Singh MD 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) 08/26/2024 Orders Only [facility] - [place] [address] [place] [address] Frank Singh MD 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) 08/20/2024 Orders Only [facility] [address] [place] [phone] Frank Singh MD 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) 08/19/2024 Orders Only [facility] [address] [place] [address] Frank Singh MD Acute myeloid leukemia not [...] Male 04/05/2024 3:07 PM LOADING MACHINE ADJUSTER Legal Sex Male 10:53 AM CDT Gender Identity Male 04/05/2024 3:07 PM LOADING MACHINE ADJUSTER Sexual Orientation Not on file Last Filed [...] (2 of 2) 02/29/2020 01/04/2020 COVID-19 Vaccine (2 - 2023-2 5 season) 2023 04/14/2021 [place] Preventative Visit/Annual Wellness Visit 04/10/2024 INFLUENZA VACCINE [...] ult from Last 3 Months Insurance [id number] [id number] [employer] O MCR Care Teams [employer] Relationship Specialty Start Date End Date Timothy Banks MD [address] [place] [phone] PCP - General Family Practice 02/01/24
--- OUTSIDE RECORDS SUMMARY | 2024-11-18 09:44 | XMS_ITS | Encounter Summary ---
Author Organization [facility] Address [address] [place] [address] Care Team Providers Care Fitness Centre Manager Name Role Phone Timothy Banks MD Primary Care Provider [phone] Cindy Garcia MD Unavailable Encounter Details Date Type Department Care Team (Late st Contact Info) Description 11/08/2024 Orders Only [facility] - Hematology/Oncology [address] [place] [address] Nikole Chou association executive myeloid leukemia in remission (HCC) Social History Tobacco Use Types [...] Recorded Patient Health Questionnaire-2 Score 0 09/23/2024 [facility] Occupat ional Health - Occupational Stress [...] time in the past 12 m [facility], were you homeless or living in a [place] health care facility (including now)? No 03/13/2024 Sex and Gender Information Value Date Recorded Sex Assigned at Male 03/05/2024 8:04 AM FREIGHT COORDINATOR Legal Sex Male 6:32 PM FREIGHT COORDINATOR Gender Identity Male 03/05/2024 8:04 AM FREIGHT COORDINATOR Sexual Orientation Straight 03/05/2024 8: 04 AM FREIGHT COORDINATOR documented as of this encounter Functional Status * Is person deaf or have serious hearing difficulty? Answer Date of Assessment Author No 10/29/2024 1:14 PM Patricia Jeff RN * Is person blind or have serious difficulty seeing? Answer Date of Assessment Author No 10/29/2024 1:14 PM Patricia Jeff, KEVIN * Does person have serious difficulty walking/climbing stairs? Answer Date of Assessment Author Yes 10/29/2024 1:14 PM Patricia Jeff, RN * Does person have difficulty dressing/bathing? Answer Date of Assessment Author No 10/29/2024 1:14 PM Patricia Jeff, KEVIN * Does person have difficulty doing errands [...] Care Team (Late st Contact Info) Description 11/22/2024 1:00 PM CDT Office Visit [facility] - Cardiology [address] [facility] [address] [place] [phone] Kaushal Archer MD [address] [place] [address] 11/25/2024 10:20 AM CDT Appointment [facility] [address] [place] [address] 11/25/2024 11:00 AM CDT Video Visit [facility] - Hematology/Oncology [address] [place] [phone] Cindy Garcia MD [address] [place] [address] 12/05/2024 9:30 AM CDT Office Visit [facility] - GI [address] [facility] [place] [address] 12/10/2024 9:00 AM CDT Appointment [facility] [address] [place] [address] Timothy Banks MD [address] [place] [phone] 12/11/2024 9:30 AM CDT Appointment [facility] [address] [place] [address] 12/12/2024 10:30 AM CDT Appointment [facility] [address] [place] [address] 12/13/2024 9:30 AM CDT Appointment [facility] [address] [place] [address] 12/16/2024 10:30 AM CDT Appointment [facility] [address] [place] [address] documented as of this encounter Visit Diagnoses Diagnosis Acute myeloid leukemia in remission (HCC) Acute myeloid leukemia in remission documented in this encounter Care Teams Fitness Centre Manager Relationship Specialty Start Date End Date Timothy Banks MD [address] [place] [address] PCP - General 10/19/18 Cindy Garcia MD [address] [place] [address] Sanitation Truck Driver/Oncologis t Hematology and Oncology 03/24/24 documented as of this encounter
--- OUTSIDE RECORDS SUMMARY | 2024-11-18 09:44 | XMS_ITS | Clinical Summary ---
Author Organization [facility] Address [address] [place] [address] Care Team Providers Care Mattress Filler Name Role Phone Timothy Banks MD Primary Care Provider [phone] Cindy Garcia MD Unavailable Source Comments [facility],non-owned Affiliates and Associated Physician Practices is amultiple site organization consisting of ambulatory clinics and hospital sitesin [place], [place], [place] and [place]. This disclosure is being madepursuant to the Care Everywhere program and may not contain all information available regarding this patient. Last updated 17.[facility] Allergies Active Allergy Reactions Criticality Noted [...] mg) / 24 hours. 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 Active venetoclax (Venclexta) 100 MG tabletIndicat ions:Acute Myelocytic Leukemia Take 2 (two) tablets by mouth daily with food Reasons: Acute Myelocytic Leukemia 30 tablet 3 08/15/19 25 Active isavuconazoni um (Cresemba) 186 MG capsule Take 2 (two) capsules by mouth every 24 hours 56 capsule 3 08/15/19 25 Active nortriptyline (Pamelor) 25 MG capsule Take 1 (one) capsule by mouth at bedtime 08/19/19 25 Active apixaban (Eliquis) 2.5 MG tablet Take 1 (one) tablet by mouth 2 times daily 60 tablet 3 08/29/19 25 Active ferrous sulfate (FeroSul) 325 (65 FE) MG tabletIndicat ions:Acute myeloid leuk w multilin dysplasia, 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) Take 1 (one) tablet by mouth every 2 days 30 tablet 2 10/01/19 25 Active polyethylene glycol 3350 (Miralax) 17 g packet Take 17 (seventeen) g by mouth once daily as needed for Constipation 30 packet 2 10/30/19 25 Active ondansetron, disintegratin g, (Zofran ODT) 8 MG tabletIndicat ions:Acute myeloid leuk w multilin dysplasia, 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),Chemoth erapy-induced nausea Take 1 (one) tablet by mouth every 8 hours as needed for Nausea/Vomiting Allow tablet to dissolve on the tongue 30 tablet 5 11/12/19 25 Active cefpodoxime (Vantin) 200 MG tablet TAKE 1 TABLET BY MOUTH EVERY 12 HOURS 60 tablet 2 11/15/19 25 Active polyethylene glycol 3350 (Miralax) 17 g packet Take 17 (seventeen) g by mouth once daily as needed for Constipation 03/23/20 24 2024 Discontinued(L ist Clean-Up) ondansetron, disintegratin g, (Zofran ODT) 8 MG tabletIndicat ions:Acute myeloid leuk w multilin dysplasia, 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 Restart on 08/22/2024. 08/12/192024 Discontinued Active Problems Problem Noted Date Diagnosed [...] Encounters Date Type Department Care Team Description 11/15/2024 8:07 AM CDT - 11/15/2024 11:59 PM CDT Hospital Encounter [facility] [address] [place] [phone] Timothy Banks MD Discharge Disposition: Home or Self Care 11/15/2024 Travel 11/14/2024 8:30 AM CDT - 11/14/2024 11:59 PM CDT Hospital Encounter [facility] [address] [place] [phone] Timothy Banks, Discharge Disposition: Home or Self Care 11/14/2024 Travel 11/13/2024 8:10 AM CDT - 11/13/2024 11:59 PM CDT Hospital Encounter [address] [address] Timothy Banks, Discharge Disposition: Home or Self Care 11/13/2024 Refill [facility] - Hematology/Oncology [address] [place] [phone] Cindy Garcia MD Refill Request 11/13/2024 Travel 11/12/2024 8:14 AM CDT - 11/12/2024 11:59 PM CDT Hospital Encounter [facility] [address] [place] [address] [phone] Timothy Banks, Discharge Disposition: Home or Self Care 11/12/2024 Travel 11/11/2024 9:00 AM CDT [facility] - H[facility]ology[facility]Oncology [address] [place] [phone] Stephanie Connolly APRN-FAISAL Acute myeloid leuk w multilin dysplasia, 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); Chemotherapy-induced nausea 11/11/2024 8:14 AM CDT - 11/11/2024 11:59 PM CDT Hospital Encounter [facility] [address] [place] [phone] Timothy Banks MD Discharge Disposition: Home or Self Care 11/11/2024 Travel 11/08/2024 Orders Only [facility] - Hematology/Oncology [address] [place] [phone] Nikole Chou RN Acute myeloid leukemia in remission (HCC) 11/06/2024 Orders Only [facility] - Hematology/Oncology [address] [place] [phone] Cindy Garcia MD 11/04/2024 Results Follow-Up [facility] [address] [place] [address] Cindy Garcia MD 11/04/2024 Orders Only [facility] - Hematology/Oncology [address] [place] [address] Nikole Chou RN Acute myeloid leukemia in remission (HCC) 2024 Orders Only [facility] - Hematology/Oncology [address] [place] [phone] Cindy Garcia MD Vitamin D deficiency 10/31/2024 9:00 AM CDT Video Visit [facility] - Hematology/Oncology [address] [place] [phone] Cindy Garcia MD Family history of AML in remission 10/29/2024 11:13 AM CDT - 10/29/2024 2:14 PM CDT Hospital Encounter [facility] [address] [place] [address] Cindy Garcia MD [facility] Discharge Disposition: Home or Self Care 10/29/2024 Travel 10/29/2024 Orders Only [facility] - Hematology/Oncology [address] [place] [phone] Cindy Garcia MD 10/28/2024 Telephone [facility] [address] [place] [address] Olivia Peters, KEVIN Appointment 10/14/2024 8:49 AM CDT - 10/14/2024 11:59 PM CDT Hospital Encounter [facility] [address] [place] [phone] Timothy Banks MD Discharge Disposition: Home or Self Care 10/14/2024 Travel 10/10/2024 8:29 AM CDT - 10/10/2024 11:59 PM CDT Hospital Encounter [facility] [address] [place] [phone] Timothy Banks MD Discharge Disposition: Home or Self Care 10/10/2024 Travel 10/09/2024 8:51 AM CDT - 10/09/2024 11:59 PM CDT Hospital Encounter [facility] [address] [place] [phone] Timothy Banks MD Discharge Disposition: Home or Self Care 10/09/2024 Travel 10/08/2024 8:43 AM CDT - 10/08/2024 11:59 PM CDT Hospital Encounter [facility] [address] [place] [phone] Timothy Banks MD Discharge Disposition: Home or Self Care 10/08/2024 Orders Only [facility] - Hematology/Oncology [address] [place] [phone] Nikole Chou RN Acute myeloid leukemia in remission (HCC) 10/08/2024 Travel 10/07/2024 11:20 AM CDT Office Visit [facility] - Hematology/Oncology [address] [place] [phone] Stephanie Connolly APRN-FAISAL 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); Chronic kidney disease, unspecified CKD stage 10/07/2024 10:25 AM CDT - 10/07/2024 11:59 PM CDT Hospital Encounter [address] [address] Timothy Banks MD Discharge Disposition: Home or Self Care 10/07/2024 Travel 09/30/2024 9:40 AM CDT Office Visit [facility] - Hematology/Oncology [address] [place] [phone] Stephanie Connolly APRNPoolFIRST CALENDER WORKER 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); Acute myeloid leuk w multilin dysplasia, 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); Neutropenia, unspecified type 09/30/2024 8:33 AM CDT - 09/30/2024 11:59 PM CDT Hospital Encounter [facility] [address] [place] [phone] Timothy Banks MD Zia, Maryam F, MD Discharge Disposition: Home or Self Care 09/30/2024 Travel 09/24/2024 Telephone [facility] - Cardiology [address] [facility] [address] [place] [address] Tracey Pond MA Follow-up 09/23/2024 9:30 AM CDT Office Visit [facility] - Hematology/Oncology [address] [place] [phone] Cindy Garcia MD 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) 09/23/2024 8:22 AM CDT - 09/23/2024 11:59 PM CDT Hospital Encounter [facility] [address] [place] [phone] Cindy Garcia MD Discharge Disposition: Home or Self Care 09/23/2024 Travel 08/30/2024 8:09 AM CDT - 08/30/2024 11:59 PM CDT Hospital Encounter [facility] [address] [place] [phone] Timothy Banks MD Discharge Disposition: Home or Self Care 08/30/2024 Travel 08/29/2024 8:53 AM CDT - 08/29/2024 11:59 PM CDT Hospital Encounter [facility] [address] [place] [phone] Timothy Banks MD Discharge Disposition: Home or Self Care 08/29/2024 Travel 08/28/2024 8:55 AM CDT - 08/28/2024 11:59 PM CDT Hospital Encounter [facility] [address] [place] [phone] Timothy Banks MD Discharge Disposition: Home or Self Care 08/28/2024 Refill [facility] - Hematology/Oncology [address] [place] [phone] Cindy Garcia MD MEDICATION REFILL 08/28/2024 Travel 08/27/2024 8:54 AM CDT - 08/27/2024 11:59 PM CDT Hospital Encounter [facility] [address] [place] [phone] Timothy Banks MD Discharge Disposition: Home or Self Care 08/27/2024 Travel 08/26/2024 10:00 AM CDT Office Visit [facility] - Hematology/Oncology [address] [place] [phone] Stephanie Connolly APRN-FAISAL 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); At risk for long QT syndrome 08/26/2024 8:45 AM CDT - 08/26/2024 11:59 PM CDT Hospital Encounter [facility] [address] [place] [phone] Timothy Banks MD Discharge Disposition: Home or Self Care 08/26/2024 Travel 08/23/2024 2:30 PM CDT Office Visit [facility] - Cardiology [address] [phone] Tracey Pond APRN-FIRST CALENDER WORKER SVT (supraventricular tachycardia) (HCC) (Primary Dx); On amiodarone therapy; PVC's (premature ventricular contractions); Syncope and collapse; Palpitations 08/23/2024 Travel 08/19/2024 10:00 AM CDT Office Visit [facility] - Hematology/Oncology [address] [place] [phone] Cindy Garcia MD 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) 08/19/2024 9:05 AM CDT - 08/19/2024 11:59 PM CDT Hospital Encounter [facility] [address] [place] [phone] Timothy Banks MD Discharge Disposition: Home or Self Care 08/19/2024 Travel from Last 3 Months Social History [...] Recorded Patient Health Questionnaire-2 Score 0 09/23/2024 [facility] of Occupat ional Health - Occupational Stress [...] any time in the past 12 [facility], were you homeless or living in a chcf (including now)? No 03/13/2024 Sex and Gender Information Value Date Recorded Sex Assigned at Male 03/05/2024 8:04 AM REAL ESTATE PROFESSIONAL Legal Sex Male 6:32 PM REAL ESTATE PROFESSIONAL Gender Identity Male 03/05/2024 8:04 AM REAL ESTATE PROFESSIONAL Sexual Orientation Straight 03/05/2024 8: 04 AM REAL ESTATE PROFESSIONAL Last Filed Vital Signs Vital Sign Reading Time Taken Comments Blood Pressure 153/77 11/15/2024 8:07 AM CDT Pulse 105 11/15/2024 8:07 AM CDT Temperature 36 C (96.8 F) 11/15/2024 8:07 AM CDT Respiratory Rate 20 11/15/2024 8:07 AM CDT Oxygen Saturation 99% 11/15/2024 8:07 AM CDT Inhaled Oxygen Concentration 21% 10/29/2024 1 :15 PM CDT Weight 89.4 kg (197 lb) 11/15/2024 8:07 AM CDT Height 182.9 cm (6') 10/29/2024 11:29 AM CDT Body Mass Index 26.72 10/29/2024 11:29 AM CDT Plan of Treatment Upcoming Encounters Date Type Department Care Team (Late st Contact Info) Description 11/22/2024 1:00 PM CDT Office Visit [facility] - Cardiology [address] [facility] [address] [place] [address] Kaushal Archer MD [address] [place] [phone] 11/25/2024 10:20 AM CDT Appointment [facility] [address] [place] [phone] 11/25/2024 11:00 AM CDT Video Visit [facility] - Hematology/Oncology [facility] [place] [phone] Cindy Garcia MD [address] [place] [address] 12/05/2024 9:30 AM CDT Office Visit [facility] [address] [facility], [place] [address] 12/10/2024 9:00 AM CDT Appointment [facility] [address] [place] [phone] Timothy Banks MD [address] [place] [phone] 12/11/2024 9:30 AM CDT Appointment [facility] [address] [place] [phone] 12/12/2024 10:30 AM CDT Appointment [facility] [address] [place] [phone] 12/13/2024 9:30 AM CDT Appointment [facility] [address] [place] [phone] 12/16/2024 10:30 AM CDT Appointment [facility] [address] [place] [phone] Health Maintenance Due Date Last Done Comments DTAP/TDAP/TD VACCINES (1 - Tdap) 11/04/1963 PNEUMOCOCCAL VACCINE 50+ (1 of 2 - PCV) 11/04/1963 ZOSTER VACCINE (1 of 2) 11/04/1963 Respiratory Syncytial Virus (RSV) Vaccine Pt: or over 60 yrs (1 - 1-dose 75+ series) 11/04/2019 COVID-19 VACCINE ( season) 2023 04/14/2021, 06/25/2020, 06/02/2020 MEDICARE AWV CALENDAR YEAR 2024 INFLUENZA VACCINE (#1) 2024 , 12/21/2022, 12/25/2021, Additional history exists DEPRESSION SCREENING [...] this topic Medical Devices Implanted Type Area Service Officer Device Identifier Shelf Expiration Date Model / Serial / Lot Port Implinfn Powerport Clrvu Argd Kandy Implanted:Qty : 1 on 04/11/2024 by Davian Marshall MD at [facility] Catheters Right: Chest Wall [employer] [id number] 02/07/2025 [id number] / / [id number] Procedures Procedure Name Priority Date/Time Associated Diagnosis Comments DIFFERENTIAL MANUAL Routine 11/11/2024 8 :28 AM CDT Acute myeloid leukemia in remission (HCC) COMPREHENSIVE METABOLIC PANEL Routine 11/11/2024 8:28 AM CDT Acute myeloid leukemia in remission (HCC) CBC W AUTO DIFFERENTIAL Routine 11/11/2024 8:28 AM CDT Acute myeloid leukemia in remission (HCC) VITAMIN D 25-HYDROXY Routine 11/11/2024 8:28 AM CDT Vitamin D deficiency CT BONE MARROW BIOPSY Routine 10/29/2024 1:09 PM CDT Acute myeloid leukemia in remission (HCC) CHROMOSOME ANALYSIS BONE MARROW PANEL Routine 10/29/2024 1:05 PM CDT Acute myeloid leukemia 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) FLOW CYTOMETRY BONE MARROW Routine [...] achieve remis (HCC) DIFFERENTIAL MANUAL Routine 08/29/2024 8 :50 AM [...] (HCC) from Last 3 Months Results * VITAMIN D 25-HYDROXY (11/11/2024 8:28 AM CDT) Pathologist [facility] Vitamin D, 25 Hydroxy 30.0 30.0 - 80.0 ng/mL 11/11/2024 9:55 AM CDT [facility] Comment: The recommendations for 25-Hydroxy Vitamin D clinical decision points are as follows: Deficient: <20.0 ng/mL Insufficient: 20.0 - 29.9 ng/mL Sufficient: 30.0 - 100.0 ng/mL Potential Toxicity: >100 ng/mL Reference: The Endocrine Society Clinical Practice Guidelines. 2011 If the 25-Hydroxy Vitamin D results are inconsitent with clinical evidence, it is recommended that follow-up testing using a method such as LC/MS/MS be performed to confirm the result. Blood BLOOD SPECIMEN / Unknown Venipuncture / Unknown 11/11/2024 8:28 AM CDT 11/11/2024 8:52 AM CDT Cindy Garcia MD LAB - CHEMISTRY ORDERABLES Final Result [facility] [address] [place] [address], [facility] [phone] * (ABNORMAL) DIFFERENTIAL MANUAL (11/11/2024 8:28 AM CDT) Only the most recent of7 resultswithin the time period is included. Neutrophil % 18(L) 41 - 74 % 11/11/2024 11:21 AM [facility] Lymphocyte % 58(H) 17 - 47 % 11/11/2024 11:21 AM [facility] Monocyte % 13(H) 3 - 11 % 11/11/2024 11:21 AM [facility] Comment:Rare Reactive and Im mature monocytes. Eosinophil % 10(H) 0 - 7 % 11/11/2024 11:21 AM [facility] Metamyelocyte % 1(H) 0% % 11:21 AM [facility] Neutrophil Absolute 0.20(L) 1.60 - 7.50 x10E9/L 11/11/2024 11:21 AM [facility] Lymphocyte Absolute 0.64(L) 1.00 - 4.40 x10E9/L 11/11/2024 11:21 AM [facility] Monocyte Absolute 0.14(L) 0.15 - 1.00 x10E9/L 11/11/2024 11:21 AM [facility] Eosinophil Absolute 0.11 0.00 - 0.60 x10E9/L 11/11/2024 11:21 AM [facility] RBC Morphology REVIEWED 11/11/2024 11:21 AM [facility] Steven Cells MODERATE(A) (none) 11/11/2024 11:21 AM [facility] Macrocytosis MODERATE(A) (none) 11/11/2024 11:21 AM [facility] Ovalocytes MODERATE(A) (none) 11/11/2024 11:21 AM [facility] Schistocytes FEW(A) (none) 11/11/2024 11:21 AM [facility] Large Platelets PRESENT(A) (none) 11:21 AM [facility] Blood BLOOD SPECIMEN / Unknown Venipuncture / Unknown 11/11/2024 8:28 AM CDT 11/11/2024 8:51 AM CDT us Cindy Garcia MD LAB - HEMATOLOGY ORDERABLES Jamila stern Result [facility] [address] [place] [phone], [facility] [phone] * (ABNORMAL) CBC WITH DIFFERENTIAL (11/11/2024 8:28 AM CDT) Only the most recent of7 resultswithin the time period is included. WBC 1.1(L) 4.0 - 10.7 x10E9/L 11/11/2024 11:21 AM [facility] RBC Count 3.24(L) 4.30 - 5.80 x10E12/L 11/11/2024 11:21 AM [facility] Hemoglobin 11.8(L) 13.3 - 17.5 g/dL 11/11/2024 11:21 AM [facility] Hematocrit 35.1(L) 38.7 - 51.1 % 11/11/2024 11:21 AM [facility] MCV 108.3(H) 80.0 - 98.0 fL 11/11/2024 11:21 AM [facility] MCH 36.4(H) 26.7 - 33.6 pg 11/11/2024 11:21 AM [facility] MCHC 33.6 31.7 - 36.3 g/dL 11/11/2024 11:21 AM [facility] RDW-CV 16.8(H) 11.3 - 14.8 % 11/11/2024 11:21 AM [facility] Platelet Count 94(L) 150 - 420 x10E9/L 11/11/2024 11:21 AM [facility] MPV 11/11/2024 11:21 AM [facility] Comment:Unable to report Preliminary Absolute Neutrophil 0.23(L) 1.60 - 7.50 x10E9/L 11/11/2024 11:21 AM [facility] Comment:Preliminary ANC pend ing manual confirmation Blood BLOOD SPECIMEN / Unknown Venipuncture / Unknown 11/11/2024 8:28 AM CDT 11/11/2024 8:51 AM CDT Cindy Garcia MD LAB - HEMATOLOGY ORDERABLES Jamila stern Result [facility] [address] [place] [phone], [facility] [phone] * (ABNORMAL) COMPREHENSIVE METABOLIC PANEL (11/11/2024 8:28 AM T) Only the most recent of7 resultswithin the time period is included. BUN 16 7 - 26 mg/dL 11/11/2024 10:25 AM [facility] Creatinine 1.31(H) 0.71 - 1.16 mg/dL 11/11/2024 10:25 AM [facility] Sodium 142 136 - 145 mmol/L 11/11/2024 10:25 AM [facility] Potassium 3.9 3.5 - 4.5 mmol/L 11/11/2024 10:25 AM [facility] Chloride 114(H) 98 - 107 mmol/L 11/11/2024 10:25 AM [facility] CO2 19(L) 22 - 29 mmol/L 11/11/2024 10:25 AM [facility] Glucose 96 70 - 99 mg/dL 11/11/2024 10:25 AM [facility] Calcium 9.2 8.4 - 10.2 mg/dL 11/11/2024 10:25 AM [facility] Protein Total 6.5 6.0 - 8.3 g/dL 11/11/2024 10:25 AM [facility] Albumin 4.2 3.4 - 5.0 g/dL 11/11/2024 10:25 AM [facility] Bilirubin Total 0.5 0.2 - 1.2 mg/dL 11/11/2024 10:25 AM [facility] Alkaline Phosphatase 138 40 - 150 U/L 11/11/2024 10:25 AM [facility] ALT 43 5 - 55 U/L 11/11/2024 10:25 AM [facility] AST 27 5 - 34 U/L 11/11/2024 10:25 AM [facility] Anion Gap 9 6 - 16 11/11/2024 10:25 AM [facility] BUN/Creatinine Ratio 12 7 - 23 11/11/2024 10:25 AM [facility] Osmolality Calculated 295 275 - 295 mOsm/kg 11/11/2024 10:25 AM [facility] Albumin/Globulin Ratio 1.8 1.1 - 2.3 11/11/2024 10:25 AM [facility] eGFR by CKD-EPI 55(L) >=90 mL/min/1.7 3 m2 11/11/2024 10:25 AM [facility] Comment:Estimated Glomerular Filtration Rate (eGFR) calculated using the CKD-EPI Creatinine Equation (2020), per the National Kidney Foundation and [place] [employer] of Nephrology recommendations. Blood BLOOD SPECIMEN / Unknown Venipuncture / Unknown 11/11/2024 8:28 AM CDT 11/11/2024 8:52 AM CDT us Cindy Garcia MD LAB - CHEMISTRY ORDERABLES Final Result [facility] [address] [place] [address], [facility] [phone] * CT Bone Marrow Biopsy (10/29/2024 1:09 [...] evaluation, please review the evaluation forms in [employer]. For details on monitored clinical parameters during the intra-service sedation time, please review the procedure nurse documentation in [employer]. > Interpreting Provider: Erasmo Brown on 10/29/2024 [...] Operators: 1.Dr. Erasmo Brown M.D., Attending Physician 2.uJlio Eduardo, MS4 Anesthesia: 1.Local anesthesia - 10 [...] The samples were collected by the hematology-oncology wood and wood products labourer on site. In addition, one core sample [...] 1.Dr. Erasmo Brown M.D., Attending Physician 2.Julio Eduardo MS4 Anesthesia: 1.Local anesthesia - 10 mL [...] The samples were collected by the hematology-oncology wood and wood products labourer on site. In addition, one core sample [...] patient evaluation, please reviewthe evaluation forms in [facility]. For details on monitored clinical parameters during the intra-service sedation time, please review the procedurenurse documentation in [facility]. > Interpreting Provider: Erasmo Brown on 10/29/2024 10:55 PM Cindy Garcia MD CT ORDERABLES Final Result * FLOW CYTOMETRY BONE MARROW (10/29/2024 1:05 PM CDT) Case Report Flow Cytometry Case: [id number] Authorizing Provider: Cindy Garcia MD Collected: 10/29/2024 01:05 PM Ordering Location: [facility] Received: 10/29/2024 01:19 PM Pathologist: Daniela Bronson MD Specimen: Bone Marrow 11/04/2024 11:17 AM CDT [facility] Addendum 1 Minimal residual disease flow cytometry performed at [facility] [place] is negative for an abnormal myeloid progenitor population at 0.033% of nucleated cells: Increased CD5, increased CD15, increased CD33, increased CD34, increased CD56, dim CD64, increased CD117, increased HLA-DR, increased CD123. 11/04/2024 11:17 AM [facility] Addendum electronically signed by Guillermo Brown MD on 11/04/2024 at 1117 CDT Final Diagnosis Bone marrow, flow cytometric immunophenotyping: - 0.4% myeloblasts identified in a markedly paucicellular specimen; minimal residual disease (MRD) flow cytometry pending with addendum to follow - No significant B-cell population or immunophenotypic evidence of a plasma cell neoplasm 11/04/2024 11:17 AM [facility] at 0915 CDT Flow [...] cytometry specimen has been reviewed for quality controller purposes. Please correlate with morphologic review of the bone marrow ([id number]). 11/04/2024 11:17 AM [facility] Flow Cytometry Results Differential Result Comment Flow Cell Count /uL 840 Total Viability % 95.0 Lymphocytes % 54 Dim CD45 Region % 6 Monocytes % 4 Granulocytes % 36 11/04/2024 11:17 AM [facility] Reason for test Acute myeloid leukemia 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) 11/04/2024 11:17 AM [facility] Client Specimen ID # [id number] 11/04/2024 11:17 AM [facility] Number of markers 19 were performed. A-2 Flow CD10 A-3 Flow CD13 A-5 Flow CD20 A-11 Flow CD2 A-13 Flow CD14 A-16 Flow CD117 A-17 Flow CD11b A-18 Flow CD11c A-1 Flow CD5 A-4 Flow CD19 A-6 Flow CD33 A-7 Flow CD34 A-8 Flow CD45 A-12 Flow CD7 A-14 Flow CD56 A-15 Flow CD64 A-9 Cordova+CD19+ A-10 Lambda+CD19+ A-19 Flow HLA-DR 11/04/2024 11:17 AM CDT [facility] Pathologist Location at [facility] 11/04/2024 11:17 AM CDT [facility] Disclaimer Test performed at [facility], [address] [place], [place], [address]. *The established laboratory minimum viability is 70%. [...] qualified to perform high complexity clinical testing. 11/04/2024 11:17 AM CDT [facility] Embedded Images 11:17 AM CDT [facility] Pathology/Cytolo gy BONE MARROW SPECIMEN / Unknown Collection / Unknown 10/29/2024 1:05 PM CDT 10/29/2024 1:19 PM CDT Cindy Garcia MD LAB - PATHOLOGY/CYTOLOGY ORDERAB LES Edited Result - Final [facility] [address] [place] [address]. [place] [address], [facility] [phone] * BONE MARROW BIOPSY (STL) (10/29/2024 1:05 PM CDT) Case Report Bone Marrow Patholog y Report Case: [id number] Authorizing Provider: Cindy Garcia MD Collected: 10/29/2024 01:05 PM Ordering Location: [facility] Received: 10/29/2024 01:19 PM Pathologist: Daniela Bronson MD Specimens: A) - Bone Marrow Clot B) - Bone Marrow Core C) - Bone Marrow Aspirate D) - Blood Peripheral 10/30/2024 3:20 PM CDT [facility] Final Diagnosis Bone marrow, iliac crest, core biopsy, clot section, and aspirate: - No morphologic evidence of residual acute myeloid leukemia in a hypercellular bone marrow (50% cellular) - 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 10/30/2024 3:20 PM [facility] Peripheral Smear Description Not provided 10/30/2024 3:20 PM [facility] Bone Marrow Aspirate [...] stain): no ring sideroblasts. 10/30/2024 3:20 PM [facility] Bone Marrow Core [...] similar to core biopsy. 10/30/2024 3:20 PM [facility] Flow Cytometry Summary Bone marrow, flow cytometric immunophenotyping ([id number]): - 0.4% myeloblasts identified in a markedly paucicellular specimen; minimal residual disease (MRD) flow cytometry pending with addendum to follow - No significant B-cell population or immunophenotypic evidence of a plasma cell neoplasm 10/30/2024 3:20 PM [facility] Clinical History AML without having achieved remission 10/30/2024 3:20 PM [facility] Gross Description The requisition [...] in cassette B1. DF 10/30/2024 3:20 PM [facility] Microscopic Description Immunohistochemistry and [...] population is not appreciated. 10/30/2024 3:20 PM [facility] Pathologist Location at [facility] 10/30/2024 3:20 PM [facility] Disclaimer The performance [...] the attending (teaching) pathologist. 10/30/2024 3:20 PM CDT [facility] Embedded Images 10/30/2024 3:20 PM CDT [facility] Pathology/Cytology PERIPHERAL BLOOD / Unknown [...] 1:05 PM CDT 10/29/2024 3:56 PM CDT Cindy Garcia MD LAB - PATHOLOGY/CYTOLOGY ORDERAB LES Final Result Performing Organization Address [facility]/State/[facility] Co de Phone Number [facility] [address] [place] [address], [facility] [phone] * LAB MISC TEST (NOT BLOOD) (10/29/2024 1:05 PM CDT) Only the most recent of2 resultswithin the time period is included. Test Name Comprehensive AML Panel + CEP8 + [id number] 11/05/2024 11:22 AM CDT [facility] NON INTERF Test Result See Scanned Report 11/05/2024 11:22 AM CDT [facility] NON INTERF Comment Ref Lab [facility] 11/05/2024 11:22 AM CDT [facility] NON INTERF Other BONE MARROW SPECIMEN / Unknown Collection / Unknown 10/29/2024 1:05 PM CDT 10/29/2024 1:59 PM CDT us Cindy Garcia MD LAB - BODY FLUID ORDERABLES Jamila l Result [facility] NON INTERF [address] [place] [address], [facility] [phone] * CHROMOSOME ANALYSIS BONE MARROW PANEL (10/29/2024 1:05 PM CDT) 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 This result has been reviewed and approved by Margaret Roberson, PhD, [facility] This result has been reviewed and approved by Emily Street MD A portion of this analysis was performed at the following location(s): [facility] CG-TN#1 INTERPRETIVE INFORMATION: Chromosome Analysis, Bone Marrow This test was developed and its performance characteristics determined by [facility]. It has not been cleared or approved by the US Food and Drug Administration. This test was performed in a CLIA certified laboratory and is intended for clinical purposes. [facility] Chromosome Analysis Bone Marrow See Note 11/09/2024 11:16 AM CDT [facility] ([facility]) Comment: Authorized individuals can access the [employer] Enhanced Report with an [employer] account using the following link. Your local lab can assist you in obtaining the patient report if you don't have a Connect account. [email or web address] Performed By: [facility] [address] [place] [address] Nursery Teacher: Uche Morley MD, PhD CLIA Number: [id number] Bone marrow BONE MARROW SPECIMEN / Unknown 10/29/2024 1:05 PM CDT 10/29/2024 1:19 PM CDT Cindy Garcia MD LAB - PATHOLOGY/CYTOLOGY ORDERAB LES Final Result [facility] ([facility]) [address] [place] [id number] [place] [address] * PT-INR (10/29/2024 11:46 AM CDT) PT 14.5 12.1 - 14.8 Seconds 10/29/2024 1:05 PM CDT [facility] INR 1.1 See Comment 10/29/2024 1:05 PM CDT [facility] Comment:The suggested therap eutic range for standard coumadin (warfarin) therapy is an INR of 2.0-3.0. For high-risk patients (Mechanical Mitral Valve Prosthesis, etc.), the suggested prophylactic therapeutic range is an INR of 2.5-3.5. Blood BLOOD SPECIMEN / Unknown Venipuncture / Unknown 10/29/2024 11:46 AM CDT 10/29/2024 11:50 AM CDT Bridgette Negro SUCKER MACHINE OPERATOR-FIRST CALENDER WORKER LAB - COAGULA TION ORDERABLES Final Result [address] [address], [facility] [phone] * (ABNORMAL) PLATELET COUNT AUTO (10/29/2024 11:46 AM CDT) Platelet Count 41(L) 150 - 420 x10E9/L 10/29/2024 12:49 PM CDT [facility] Blood BLOOD SPECIMEN / Unknown Venipuncture / Unknown 10/29/2024 11:46 AM CDT 10/29/2024 11:53 AM CDT us Bridgette Joann Marky SUCKER MACHINE OPERATOR-FIRST CALENDER WORKER LAB - HEMATOL OGY ORDERABLES Final Result [facility] [address] [place] [address], [facility] [phone] * EKG 12-Lead (08/23/2024 1:51 PM CDT) Ventricular Rate 71 BPM [facility] Atrial Rate 71 BPM [facility] P-R Interval 128 ms [facility] QRS Duration ms 126 ms [facility] Q-T Interval ms 426 ms [facility] QTC Calculation (Bezet) 462 ms [facility] Calculated P Frazer 44 degrees [facility] Calculated R Frazer 40 degrees [facility] Calculated T Frazer 51 degrees [facility] Interpretation EKG SINUS RHYTHM WITH PREMATURE ATRIAL COMPLEXES RIGHT BUNDLE BRANCH BLOCK T WAVE ABNORMALITY, CONSIDER LATERAL ISCHEMIA ABNORMAL ECG WHEN COMPARED WITH ECG OF 11-AUG-2024 12:16, T WAVE INVERSION LESS EVIDENT IN LATERAL LEADS Confirmed by SHANTI MARTINEZ, DENA POWELL ([id number]) on 09/14/2024 6:38:47 PM [facility] 08/23/2024 1:51 PM CDT 09/14/2024 6:38 PM CDT us Tracey Pond SUCKER MACHINE OPERATOR-FIRST CALENDER WORKER ECG ORDERABLES Edited R esult - Final NIA JUAREZ from Last 3 Months Insurance [employer] MEDICARE ADV Advance Directives * Full Code (Latest Code Status on File) Date Activated Date Inactivated Comments 08/08/2024 4:19 PM 08/11/2024 7:29 PM * Full Code Date Activated Date Inactivated Comments 03/13/2024 9:41 PM 03/23/2024 2:56 PM Care Teams Mattress Filler Relationship Specialty Start Date End Date Timothy Banks MD [address] [place] [address] PCP - General 10/19/18 Cindy Garcia MD [address] [place] [address] Section Chief/Oncologis t Hematology and Oncology 03/24/24
--- OUTSIDE RECORDS SUMMARY | 2024-11-18 09:44 | XMS_ITS | Encounter Summary ---
Author Organization [facility] Address [address] [place] [address] Care Team Providers Care Painter And Decorator Name Role Phone Timothy Banks MD Primary Care Provider [phone] Cindy Garcia MD Unavailable Encounter Details Date Type Department Care Team (Late st Contact Info) Description 02/13/2024 Lab Requisition [facility] - Pathology Lab [address] [place] [address] Rommel Dinh MD [address] [facility] [address] [place] [address] Illness, unspecified Social History Tobacco Use Types Packs/Day Years Used Date Smoking Tobacco: Never Assessed Sex and Gender Information Value Date Recorded Sex Assigned at Male 03/05/2024 8:04 AM CHARGER OPERATOR HELPER Legal Sex Male 6:32 PM CHARGER OPERATOR HELPER Gender Identity Male 03/05/2024 8:04 AM CHARGER OPERATOR HELPER Sexual Orientation Straight 03/05/2024 8: 04 AM CHARGER OPERATOR HELPER documented as of this encounter Plan of Treatment Upcoming Encounters Date Type Department Care Team (Late st Contact Info) Description 11/22/2024 1:00 PM CDT Office Visit [facility] - Cardiology [address] [facility], [facility] [address] [place] [address] Kaushal Archer MD [address] [place] [phone] 11/25/2024 10:20 AM CDT Appointment [facility] [address] [place] [address] 11/25/2024 11:00 AM CDT Video Visit [facility] - Hematology/Oncology [address] [place] [phone] Cindy Garcia MD [address] [place] [address] 12/05/2024 9:30 AM CDT Office Visit [facility] - GI [address] [place] [phone] 12/10/2024 9:00 AM CDT Appointment [facility] [address] [place] [address] Timothy Banks MD [address] [place] [address] 12/11/2024 9:30 AM CDT Appointment [facility] [address] [place] [address] 12/12/2024 10:30 AM CDT Appointment [facility] [address] [place] [address] 12/13/2024 9:30 AM CDT Appointment [facility] [address] [place] [address] 12/16/2024 10:30 AM CDT Appointment [facility] [address] [place] [address] documented as of this encounter Procedures Procedure Name Priority Date/Time Associated Diagnosis Comments BONE MARROW BIOPSY (STL) Routine 02/12/2024 9:20 AM CHARGER OPERATOR HELPER Illness, unspecified documented in this encounter Results * BONE MARROW BIOPSY (STL) (02/12/2024 9:20 AM CHARGER OPERATOR HELPER) Case Report Bone Marrow Patholog y Report Case: [id number] Authorizing Provider: Rommel Dinh Collected: 02/12/2024 09:20 AM MD Luke Ordering Location: [facility] - Received: 02/13/2024 12:34 PM Pathology Lab Pathologist: Daniela Bronson MD Specimens: A) - Bone Marrow Clot B) - Bone Marrow Core 02/14/2024 1:43 PM [facility] Final Diagnosis Bone marrow, iliac crest, core biopsy, clot section, and aspirate: - Increased myeloblasts (up to 30% by morphology) with mild trilineage dyspoiesis involving a hypercellular bone marrow (70-80% cellular), see comment - Absent iron stores - Patchy and mild increase in reticulin fibrosis (MF-1) 02/14/2024 1:43 PM [facility] at 1343 CHARGER OPERATOR HELPER AP Comment The patient is a 78-year-old [...] a high-grade myeloid neoplasm. 02/14/2024 1:43 PM [facility] Peripheral Smear Description The patient's [...] including numerous giant platelets. 02/14/2024 1:43 PM [facility] [...] stain): no ring sideroblasts. 02/14/2024 1:43 PM [facility] [...] similar to core biopsy. 02/14/2024 1:43 PM [facility] Flow Cytometry Summary Flow cytometry identified 35% myeloblasts and no diagnostic immunophenotypic evidence of monoclonal B-cells, an aberrant T-cell population, or plasma cell neoplasm ([id number]). 02/14/2024 1:43 PM [facility] Clinical History Chronic leukopenia 02/14/2024 1:43 PM [facility] Materials Received Received are 19 slide(s) and 3 blocks labeled [id number] along with a copy of the outside pathology report. [place] [address]. All original materials are returned to the referring institution, along with a copy of our final report. 02/14/2024 1:43 PM [facility] Microscopic Description CD34 immunohistochemistry stains [...] sections reveal absent stores. 02/14/2024 1:43 PM [facility] Pathologist Location at [facility] 02/14/2024 1:43 PM [facility] Disclaimer The performance characteristics of all immunohistochemical and indirect immunofluorescence stains (if any) cited in this report were determined by the Histopathology Laboratory of [facility]. Some of these tests were [...] the attending (teaching) pathologist. 02/14/2024 1:43 PM [facility] Embedded Images 02/14/2024 1:43 PM [facility] Pathology/Cytology BONE MARROW SPECIMEN / Unknown 02/12/2024 9:20 AM CHARGER OPERATOR HELPER 02/13/2024 12:34 PM CHARGER OPERATOR HELPER Miscellaneous samples (specimen) BONE MARROW SPECIMEN / Unknown 02/12/2024 9:20 AM CHARGER OPERATOR HELPER 02/13/2024 12:34 PM CHARGER OPERATOR HELPER Rommel Dinh MD LAB - PATHOLOGY/CYT OLOGY ORDERABLES Final Result [facility] [address] [place] [address], [facility] [phone] documented in this encounter Visit Diagnoses Diagnosis Illness, unspecified documented in this encounter Additional Health Concerns Infection Onset Date Last Indicated Resolved Time COVID-19 Under Investigation 08/08/2024 08/08/2024 08/08/2024 2:07 PM CDT documented as of this encounter Care Teams Painter And Decorator Relationship Specialty Start Date End Date Timothy Banks MD [address] [place] [address] PCP - General 10/19/18 Cindy Garcia MD [address] [place] [address] Charge Poster/Oncologis t Hematology and Oncology 03/24/24 documented as of this encounter
--- OUTSIDE RECORDS SUMMARY | 2024-11-18 09:44 | XMS_ITS ---
Author Organization [facility] Address [address] [facility] [place] [address] Care Team Providers Care Applications Project Manager Name Role Phone Timothy Banks MD Primary Care Provider [phone] Cindy Garcia MD Unavailable Active Problems Problem [...] Medications Current Day (Day 1 , Cycle 8 - Planned for 12/09/2024) Next Day (Day 2, Cycle 8 - Planned for 12/10/2024) decitabine (Dacogen) infusionvenetoclax (Venclexta) decitabine (Dacogen) 42 mg in NaCl IV 0.9 % 108.4 mL infusion decitabine (Dacogen) 42 mg in NaCl IV 0.9 % 108.4 mL infusion Past Treatment and Therapy Plans [...]
--- OUTSIDE RECORDS SUMMARY | 2024-11-18 09:45 | XMS_ITS | Clinical Summary ---
Author Organization [facility] [address] Address [address] [place] [address] Care Team Providers Care Shuttle Filler Name Role Phone Timothy Banks MD Primary Care Provider [phone] Allergies Active Allergy Reactions Criticality Noted Date [...] beats 03/31/2016 Overview (07/21/2016): Premature ventricular contraction manager terminal current use of anticoagulant therapy 1 06/01/2015 [...] Description 10/04/2024 8:45 AM CDT Office Visit [facility] Cardiology [address] [place] [address] Jayro Kaminski MD prison current use of anticoagulant therapy (Primary Dx); [...] Medical recurrent DVT, gerd, [facility], ; Comments: MAF 03/31/2016 - Hx Other Medical CKD; Comments: [facility] 03/31/2016 - GERD (gastroesophageal reflux [...] on file Legal Sex Male 4:19 AM COMMERCIAL PARTS PROFESSIONAL Gender Identity Male 01/12/2020 7:43 PM [...] Screening 1945 Fall Risk Assessment 1945 Hepatitis B Screening 1962 Well Visit 65+ 2009 Zoster Vaccine (2 of 2) 02/29/2020 01/04/2020 Covid-19 Vaccine (2 - Pfizer risk series) 05/05/2021 04/14/2021 Influenza Vaccine (#1) 2024 , 01/09/2020, 01/04/2020, Additional history exists DTaP/Tdap/Td Vaccine (2 - Td or Tdap) 09/17/2028 09/17/2018 Pneumococcal vaccine 65+ Completed 09/17/2018, 08/08 Insurance [address] [place] [address] [facility] MEDICARE [address] [phone] [facility] MEDICARE [address] [phone] [facility] MEDIC[facility] Care Teams Shuttle Filler Relationship Specialty Start Date End Date Timothy Banks MD PCP - General 07/08/16
--- OUTSIDE RECORDS SUMMARY | 2024-11-18 09:45 | XMS_ITS | Clinical Summary ---
Author Organization [facility] Address [address] [place] [address] Phone Care Team Providers Care Pm Head Cook Name Role Phone Timothy Banks MD Primary Care Provider Allergies No known active allergies Medications Cholecalciferol [...] AM MDT Legal Sex Male 9:10 AM [facility] Gender Identity Male 11/09/2019 9:17 AM [...] 08/27/2015 Insurance [employer] MEDICARE Care Teams Pm Head Cook Relationship Specialty Start Date End Date Timothy Banks MD [address] [place] [phone] PCP - General Family Medicine 11/14/18
--- OUTSIDE RECORDS SUMMARY | 2024-11-18 09:45 | XMS_ITS | Encounter Summary ---
Author Organization [facility] [employer] [facility] Address [address] [place] [address] Care Team Providers Care Children'S Minister Name Role Phone Timothy Banks MD Primary Care Provider [phone] Encounter Details Date Type Department Care Team (Late st Contact Info) Description 11/18/2024 Orders Only [facility]3] Oncology and Hematology - [place] [address] [place] [address] [address] [place] [address] Frank Singh MD [address] 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) Social History Tobacco Use Types Packs/Day Years Used Date Smoking Tobacco: Never Smokeless Tobacco: Never Alcohol Use Standard Drinks/Week Comments Yes 0 (1 standard drink = 0.6 oz pur e alcohol) Very Ocasionally Sex and Gender Information Value Date Recorded Sex Assigned at Male 04/05/2024 3:07 PM JANITORIAL ACCOUNT MANAGER Legal Sex Male 10:53 AM CDT Gender Identity Male 04/05/2024 3:07 PM JANITORIAL ACCOUNT MANAGER Sexual Orientation Not on file documented as of this encounter Plan of Treatment Not on file documented as of this encounter Visit Diagnoses Diagnosis 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 [address] PCP - General Family Practice 02/01/24 documented as of this encounter
--- OUTSIDE RECORDS SUMMARY | 2024-11-18 09:45 | XMS_ITS | Encounter Summary ---
Author Organization [facility] Address [address] [facility] [place] [address] Care Team Providers Care Electron Beam Welder Setter Name Role Phone Timothy Banks MD Primary Care Provider [phone] Cindy Garcia MD Unavailable Encounter Details Date Type Department Care Team (Late Contact Info) Description 02/12/2024 Lab Requisition [facility] - Pathology Lab [address] [place] [address] Rommel Dinh MD [address] [facility] [address] [place] [address] Decreased white blood cell count, unspecified Social History Tobacco Use Types Packs/Day Years Used Date Smoking Tobacco: Never Assessed Sex and Gender Information Value Date Recorded Sex Assigned at Male 03/05/2024 8:04 AM CLOTH FOLDER MACHINE Legal Sex Male 6:32 PM CLOTH FOLDER MACHINE Gender Identity Male 03/05/2024 8:04 AM CLOTH FOLDER MACHINE Sexual Orientation Straight 03/05/2024 8: 04 AM CLOTH FOLDER MACHINE documented as of this encounter Plan of Treatment Upcoming Encounters Date Type Department Care Team (Late Contact Info) Description 11/22/2024 1:00 PM CDT Office Visit [facility] - Cardiology [address] [facility], [facility] [address] [place] [address] Kaushal Archer MD [address] [place] [phone] 11/25/2024 10:20 AM CDT Appointment [facility] [address] [place] [address] 11/25/2024 11:00 AM CDT Video Visit [facility] - Hematology/Oncology [address] [place] [phone] Cindy Garcia MD [address] [place] [address] 12/05/2024 9:30 AM CDT Office Visit [facility] - [address] [phone] 12/10/2024 9:00 AM CDT Appointment [facility] [address] [place] [address] Timothy Banks MD [address] [place] [address] 12/11/2024 9:30 AM CDT Appointment [facility] [address] [place] [address] 12/12/2024 10:30 AM CDT Appointment [facility] [address] [place] [address] 12/13/2024 9:30 AM CDT Appointment [facility] [address] [place] [address] 12/16/2024 10:30 AM CDT Appointment [facility] [address] [place] [address] documented as of this encounter Procedures Procedure Name Priority Date/Time Associated Diagnosis Comments FLOW CYTOMETRY BONE MARROW Routine 02/12/2024 9:20 AM CLOTH FOLDER MACHINE Decreased white blood cell count, unspecified documented in this encounter Results * FLOW CYTOMETRY BONE MARROW (02/12/2024 9:20 AM CLOTH FOLDER MACHINE) Case Report Flow Cytometry Case: [id number] Authorizing Provider: Rommel Dinh Collected: 02/12/2024 09:20 AM MD Luke Ordering Location: [facility] - Received: 02/12/2024 12:12 PM Pathology Lab Pathologist: Daniela Bronson MD Specimen: Bone Marrow 02/12/2024 3:44 PM [facility] Final Diagnosis Bone marrow, flow [...] on 02/12/2024 at 1539. 02/12/2024 3:44 PM [facility] at 1544 CLOTH FOLDER MACHINE Flow Cytometry Interpretation Viability: 97% B-cells: 6% [...] specimen has been reviewed for quality assurance analyst purposes. Review the bone marrow aspirate smears reveals 20% blasts with only rare promyelocytes identified. Carolyn rods are not seen. 02/12/2024 3:44 PM [facility] Flow Cytometry Results Differential Result Comment Flow Cell Count /uL 20,700 Total Viability % 97.0 Lymphocytes % 12 Dim CD45 Region % 44 Monocytes % 1 Granulocytes % 42 02/12/2024 3:44 PM [facility] Reason for test Decreased white blood cell count, unspecified 02/12/2024 3:44 PM [facility] Client Specimen ID # [id number] 02/12/2024 3:44 PM [facility] Number of markers [...] CD56 A-20 Flow CD64 A-28 cyCD22 A-29 mkRL42c A-16 [place]+CD19+ A-17 Lambda+CD19+ A-24 Flow HLA-DR A-25 Flow MPO A-26 Flow TdT A-27 cyCD3 02/12/2024 3:44 PM [facility] Pathologist Location at [facility] 02/12/2024 3:44 PM [facility] Disclaimer Test performed at [facility], [address] [place] [address], [address]. *The established laboratory minimum viability is 70%. [...] high complexity clinical testing. 02/12/2024 3:44 PM [facility] Embedded Images 3:44 PM [facility] Pathology/Cytolo gy BONE MARROW SPECIMEN / Unknown 02/12/2024 9:20 AM CLOTH FOLDER MACHINE 02/12/2024 12:12 PM CLOTH FOLDER MACHINE Rommel Dinh MD LAB - PATHOLOGY/CYT OLOGY ORDERABLES Final Result Performing Organization Address City/State/[place] Co de Phone Number [facility] [address] [facility] [place] [address], [facility] [[email or web address]] [phone] documented in this encounter Visit Diagnoses Diagnosis Decreased white blood cell count, unspecified documented in this encounter Additional Health Concerns Infection Onset Date Last Indicated Resolved Time COVID-19 Under Investigation 08/08/2024 08/08/2024 08/08/2024 2:07 PM CDT documented as of this encounter Care Teams Electron Beam Welder Setter Relationship Specialty Start Date End Date Timothy Banks MD [address] [place] [phone] PCP - General 10/19/18 Cindy Garcia MD [address] [place] [address] Road Traffic Controller/Oncologis t Hematology and Oncology 03/24/24 documented as of this encounter
--- OUTSIDE RECORDS SUMMARY | 2024-11-18 09:45 | XMS_ITS | Encounter Summary ---
Author Organization [facility] Address [address] [facility] [place] [address] Care Team Providers Care Inside Solar Sales Consultant Name Role Phone Timothy Banks MD Primary Care Provider [phone] Cindy Garcia MD Unavailable Encounter Details Date Type Department Care Team (Late st Contact Info) Description 09/28/2023 Lab Requisition [facility] - DermPath Lab [address] [facility], [facility] [place] [address] Timothy Banks MD [address] [place] [phone] Social History Tobacco Use Types Packs/Day Years Used Date Smoking Tobacco: Never Assessed Sex and Gender Information Value Date Recorded Sex Assigned at Male 03/05/2024 8:04 AM METAL ROOFER Legal Sex Male 6:32 PM METAL ROOFER Gender Identity Male 03/05/2024 8:04 AM METAL ROOFER Sexual Orientation Straight 03/05/2024 8: 04 AM METAL ROOFER documented as of this encounter Plan of Treatment Upcoming Encounters Date Type Department Care Team (Late Contact Info) Description 11/22/2024 1:00 PM CDT Office Visit [facility] - Cardiology [address] [facility] [address] [place] [address] Kaushal Archer MD [address] [place] [phone] 11/25/2024 10:20 AM CDT Appointment [facility] [address] [place] [address] 11/25/2024 11:00 AM CDT Video Visit [facility] - Hematology/Oncology [address] [place] [phone] Cindy Garcia MD [address] [place] [address] 12/05/2024 9:30 AM CDT Office Visit [facility] - GI [address] [place] [phone] 12/10/2024 9:00 AM CDT Appointment [facility] [address] [place] [address] Timothy Banks MD [address] [place] [address] 12/11/2024 9:30 AM CDT Appointment [facility] [address] [place] [address] 12/12/2024 10:30 AM CDT Appointment [facility] [address] [place] [address] 12/13/2024 9:30 AM CDT Appointment [facility] [address] [place] [address] 12/16/2024 10:30 AM CDT Appointment [facility] [address] [place] [address] documented as of this encounter Procedures Procedure Name Priority Date/Time Associated Diagnosis Comments DERMATOPATHOLOGY Routine 09/27/2023 12:0 0 AM CDT documented in this encounter Results * DERMATOPATHOLOGY (09/27/2023 12:00 AM CDT) Case Report Dermatopathology Report Case: [id number] Authorizing Provider: Timothy Banks MD Collected: 09/27/2023 12:00 AM Ordering Location: [facility] - Received: 09/28/2023 10:46 AM DermPath Lab Pathologist: Kerry Pringle MD Specimens: A) - Skin, left neck B) - Skin, left axilla 12:35 PM CDT DERMATOPATHOLOGY LABORATORY Final Diagnosis Specimen A. SKIN, left neck: SEBORRHEIC KERATOSIS, IRRITATED AND INFLAMED (L82.0) PRESENT AT MARGIN Specimen B. SKIN, left axilla: PIGMENTED SEBORRHEIC KERATOSIS (L82.1) PRESENT AT MARGIN 12:35 PM CDT DERMATOPATHOLOGY LABORATORY at 1235 CDT Clinical History A-B: Changing lesion 12:35 PM CDT DERMATOPATHOLOGY LABORATORY Gross Description Specimen A: Received is one formalin filled container labeled with the patient's name and designated left neck. The specimen consists of a shave biopsy measuring 15g18p4 mm. Jar 0. Specimen B: Received is [...] characteristic determined by the Dermatopathology Laboratory at [facility], directed by Dr. Randall Pringle. These tests need not be, and therefore are not, approved by the [place] Food and Drug Administration. The tests are used for clinical purposes. Billing Codes Specimen Charges Stain Charges 71736 00531 1 1 4 12:35 PM CDT DERMATOPATHOLOGY LABORATORY Embedded Images 4 12:35 PM CDT DERMATOPATHOLOGY LABORATORY Pathology/Cytology TISSUE SPECIMEN FROM SKIN / Unknown 09/27/2023 09/28/2023 10:46 AM CDT Miscellaneous samples (specimen) TISSUE SPECIMEN FROM SKIN / Unknown 09/27/2023 09/28/2023 10:46 AM CDT Timothy Banks MD LAB - PATHOLOGY/CYTOLOGY [place]LI [place]REAL Final Result Performing Organization Address City/State/[facility] Co de Phone Number DERMATOPATHOLOGY LABORATORY [facility] Department of Dermatology [facility] Medicine [address] [place] [address], [address] [phone] documented in this encounter Visit Diagnoses Not on filedocumented in this encounter Additional Health Concerns Infection Onset Date Last Indicated Resolved Time COVID-19 Under Investigation 08/08/2024 08/08/2024 08/08/2024 2:07 PM CDT documented as of this encounter Care Teams Inside Solar Sales Consultant Relationship Specialty Start Date End Date Timothy Banks MD [address] [place] [address] PCP - General 10/19/18 Cindy Garcia MD [address] [place] [address] Chute Man/Oncologis t Hematology and Oncology 03/24/24 documented as of this encounter
--- OUTSIDE RECORDS SUMMARY | 2024-11-18 09:45 | XMS_ITS | Encounter Summary ---
Author Organization [facility] Address [address] [place] [address] Care Team Providers Care Marketing Services Manager Name Role Phone Timothy Banks MD Primary Care Provider [phone] Encounter Details Date Type Department Care Team (Late st Contact Info) Description 06/13/2017 Orders Only [facility] Health Information Management [address] [place] [address] Scanning, Provider Social History Tobacco Use Types Packs/Day Years Used Date Smoking Tobacco: Never Smokeless Tobacco: Never Alcohol Use Standard Drinks/Week Comments Yes 0 (1 standard drink = 0.6 oz pur e alcohol) Sex and Gender Information Value Date Recorded Sex Assigned at Not on file Legal Sex Male 4:19 AM PALLIATIVE MEDICINE PHYSICIAN Gender Identity Male 01/12/2020 7:43 PM CDT Sexual Orientation Straight 01/12/2020 7: 43 PM CDT documented as of this encounter Plan of Treatment Not on file documented as of this encounter Procedures Procedure Name Priority Date/Time Associated Diagnosis Comments SCAN - LABS 06/13/2017 documented in this encounter Results * SCAN - LABS (06/13/2017) us Provider Scanning Final Result documented in this encounter Visit Diagnoses Not on filedocumented in this encounter Care Teams Marketing Services Manager Relationship Specialty Start Date End Date Timothy Banks MD PCP - General 07/08/16 documented as of this encounter
--- OUTSIDE RECORDS SUMMARY | 2024-11-18 09:45 | XMS_ITS | Encounter Summary ---
Author Organization [facility] Address [address] [place] [address] Phone Care Team Providers Care Pharmacy Operations Coordinator Name Role Phone Timothy Banks MD Primary Care Provider Encounter Details Date Type Department Care Team (Late st Contact Info) Description 01/25/2024 Telephone [facility] Cardiology [address] [facility] Advanced Medicine 8th [place] [address] [place] [address] Alberto Gallegos MD [address] [facility] [address] [place] [address] Social History Tobacco Use Types Packs/Day Years Used Date Smoking Tobacco: Never Smokeless Tobacco: Never Alcohol Use Standard Drinks/Week Comments Yes 0 (1 standard drink = 0.6 oz pur e alcohol) Sex and Gender Information Value Date Recorded Sex Assigned at Not on file Legal Sex Male 4:19 AM PIANO REFINISHER Gender Identity Male 01/12/2020 7:43 PM CDT Sexual Orientation Straight 01/12/2020 7: 43 PM CDT documented as of this encounter Plan of Treatment Not on file documented as of this encounter Visit Diagnoses Not on filedocumented in this encounter Care Teams Pharmacy Operations Coordinator Relationship Specialty Start Date End Date Timothy Banks MD PCP - General 07/08/16 documented as of this encounter
--- OUTSIDE RECORDS SUMMARY | 2024-11-18 09:45 | XMS_ITS | Encounter Summary ---
Author Organization [facility] Address [address] [place] [address] Phone Care Team Providers Care Feather Mixer Name Role Phone Timothy Banks MD Primary Care Provider [phone] Encounter Details Date Type Department Care Team (Late st Contact Info) Description 08/25/2017 Orders Only [facility] ProviderDusty MD [address] [place] [address] Social History Tobacco Use Types Packs/Day Years Used Date Smoking Tobacco: Never Smokeless Tobacco: Never Alcohol Use Standard Drinks/Week Comments Yes 0 (1 standard drink = 0.6 oz pur e alcohol) Sex and Gender Information Value Date Recorded Sex Assigned at Not on file Legal Sex Male 4:19 AM SENIOR TEST ENGINEER Gender Identity Male 01/12/2020 7:43 PM [...] on filedocumented in this encounter Care Teams Feather Mixer Relationship Specialty Start Date End Date Timothy Banks MD PCP - General 07/08/16 documented as of this encounter
--- OUTSIDE RECORDS SUMMARY | 2024-11-18 09:45 | XMS_ITS | Clinical Summary ---
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
--- OUTSIDE RECORDS SUMMARY | 2024-11-18 09:45 | XMS_ITS | Encounter Summary ---
Author Organization [facility] Address [address] [facility] [place] [address] Care Team Providers Care Aircraft Layout Worker Name Role Phone Timothy Banks MD Primary Care Provider [phone] Cindy Garcia MD Unavailable Encounter Details Date Type Department Care Team (Late st Contact Info) Description 11/04/2024 Results Follow-Up [facility] IVR [address] [place] [phone] Cindy Garcia MD [address] [place] [address] Social History Tobacco Use Types Packs/Day Years [...] Recorded Patient Health Questionnaire-2 Score 0 09/23/2024 [facility] [place] [facility] Occupat ional Health - Occupational [...] any time in the past 12 m [facility], were you homeless or living in a alf (including now)? No 03/13/2024 Sex and Gender Information Value Date Recorded Sex Assigned at Male 03/05/2024 8:04 AM TERMINATION CLERK Legal Sex Male 6:32 PM TERMINATION CLERK Gender Identity Male 03/05/2024 8:04 AM TERMINATION CLERK Sexual Orientation Straight 03/05/2024 8: 04 AM TERMINATION CLERK documented as of this encounter Functional Status [...] Description 11/22/2024 1:00 PM CDT Office Visit [facility] - Cardiology [address] [facility] [address] [place] [phone] Kaushal Archer MD [address] [place] [address] 11/25/2024 10:20 AM CDT Appointment [facility] [address] [place] [address] 11/25/2024 11:00 AM CDT Video Visit [facility] - Hematology/Oncology [address] [place] [phone] Cindy Garcia MD [address] [place] [address] 12/05/2024 9:30 AM CDT Office Visit [facility] - GI [address] [facility], [facility] [place] [address] 12/10/2024 9:00 AM CDT Appointment [facility] [address] [place] [address] Timothy Banks MD [address] [place] [phone] 12/11/2024 9:30 AM CDT Appointment [facility] [address] [place] [address] 12/12/2024 10:30 AM CDT Appointment [facility] [address] [place] [address] 12/13/2024 9:30 AM CDT Appointment [facility] [address] [place] [address] 12/16/2024 10:30 AM CDT Appointment [facility] [address] [place] [address] documented as of this encounter Visit Diagnoses Not on filedocumented in this encounter Care Teams Aircraft Layout Worker Relationship Specialty Start Date End Date Timothy Banks MD [address] [place] [phone] PCP - General 10/19/18 Cindy Garcia MD [address] [place] [address] Vulcanizer Operator/Oncologis t Hematology and Oncology 03/24/24 documented as of this encounter
[2024-11-18 10:13] LABS: Hematocrit 37.6 % (42.0-52.0); Hemoglobin 12.2 g/dL (14.0-18.0); Immature Granulocyte Percent A 3.4 % (0-0.5); Immature Platelet Fraction Pct 12.3 % (0.9-11.2); Lymphocytes Absolute Auto 0.64 K/mm3 (0.9-3.2); Mean Corpuscular HGB Conc 32.4 g/dl (32-36); Mean Corpuscular Hemoglobin 35.5 pg (26-34); Mean Corpuscular Volume 109.3 fl (80-100); Nucleated Red Blood Cells Absolute Auto 0.000 K/mm3 (0.0-0.012); Nucleated Red Blood Cells Perc 0.0 % (0.0-0.2); Platelet Count Result 82 k/mm3 (150-375); Red Blood Count 3.44 M/mm3 (4.6-6.20)
[2024-11-18 10:14] LABS: White Blood Count 1.5 K/mm3 (4.5-10.0)
[2024-11-18 11:32] LABS: Anion Gap 9 mmol/L (4-12); Blood Urea Nitrogen 16 mg/dL (9-20); Calcium 9.7 mg/dL (8.4-10.2); Carbon Dioxide 25 mmol/L (22-30); Chloride 106 mmol/L (98-107); Estimated Glomerular Filt Rate 56; Glucose 108 mg/dL (65-110); Potassium 4.9 mmol/L (3.4-5.0); Sodium 140 mmol/L (137-145)
== END 2024-11-18 09:40 | disposition home or self-care (01) ==
LOC: ANHLAB 09:40
PROVIDERS: PCP Family Medicine; Visit Provider Internal Medicine Hematology & Oncology
DX: C92.00 Acute myeloblastic leukemia, not having achieved remission (principal)
CPT/HCPCS: 36415; 80048; 85025; 85055

== ENCOUNTER 2024-12-02 11:37 | Outpatient (CLI) | payer MEDICARE, SELFPAY ==
--- OUTSIDE RECORDS SUMMARY | 2024-12-02 12:12 | XMS_ITS | Clinical Summary ---
Author Organization [facility] Address [address] [place] [address] Care Team Providers Care Foil Spinner Name Role Phone Timothy Banks MD Primary Care Provider [phone] Cindy Garcia MD Unavailable Source Comments [facility],non-owned Affiliates and Associated Physician Practices is amultiple site organization consisting of ambulatory clinics and hospital sitesin [place], [place], [place] and [place]. This disclosure is being madepursuant to the Care Everywhere program and may not contain all information available regarding this patient. 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 Restart on 08/22/2024. 08/12/19 25 2024 Discontinued apixaban (Eliquis) 2.5 MG tablet Take 1 (one) tablet by mouth 2 times daily 60 tablet 3 08/29/19 25 2024 Discontinued Active Problems Problem Noted [...] Encounters Date Type Department Care Team Description 11/29/2024 Orders Only [facility] - Hematology/Oncology [address] [place] [phone] Nikole Chou, supervisor rice milling myeloid leukemia in remission (HCC) 11/25/2024 11:00 AM CDT Video Visit [facility] - Hematology/Oncology [address] [place] [address] Mohsen, Stephanie, MACHINE BOOKKEEPER-SALES FACILITATOR Acute myeloid leukemia in remission (HCC) ; Decreased appetite 11/22/2024 Orders Only [facility] - Hematology/Oncology [address] [place] [phone] Nikole Chou RN Acute myeloid leukemia in remission (HCC) 11/20/2024 Refill [facility] - Hematology/Oncology [address] [place] [phone] Cindy Garcia MD Refill Request 11/15/2024 8:07 AM CDT - 11/15/2024 11:59 PM CDT Hospital Encounter [facility] [address] [place] [phone] Timothy Banks MD Discharge Disposition: Home or Self Care 11/15/2024 Travel 11/14/2024 8:30 AM CDT - 11/14/2024 11:59 PM CDT Hospital Encounter [facility] [address] [place] [phone] Timothy Banks MD Discharge Disposition: Home or Self Care 11/14/2024 Travel 11/13/2024 8:10 AM CDT - 11/13/2024 11:59 PM CDT Hospital Encounter [facility] [address] [place] [phone] Timothy Banks MD Discharge Disposition: Home or Self Care 11/13/2024 Refill [facility] - Hematology/Oncology [address] [place] [phone] Cindy Garcia MD Refill Request 11/13/2024 Travel 11/12/2024 8:14 AM CDT - 11/12/2024 11:59 PM CDT Hospital Encounter [facility] [address] [place] [phone] Timothy Banks MD Discharge Disposition: Home or Self Care 11/12/2024 Travel 11/11/2024 9:00 AM CDT Office Visit [facility] - Hematology/Oncology [address] [place] [phone] Stephanie Connolly APRN-SALES FACILITATOR Acute myeloid leuk w multilin dysplasia, 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); Chemotherapy-induced nausea 11/11/2024 8:14 AM CDT - 11/11/2024 11:59 PM CDT Hospital Encounter [facility] [address] [place] [phone] Timothy Banks MD Discharge Disposition: Home or Self Care 11/11/2024 Travel 11/08/2024 Orders Only [facility] - Hematology/Oncology [address] [place] [phone] Nikole Chou, supervisor rice milling myeloid leukemia in remission (HCC) 11/06/2024 Orders Only [facility] - H[facility]ology[facility]Oncology [address] [place] [phone] Cindy Garcia MD 11/04/2024 Results Follow-Up [facility] [address] [place] [address] Cindy Garcia MD 11/04/2024 Orders Only [facility] Hematology[facility]Oncology [address] [place] [phone] Nikole Chou RN Acute myeloid leukemia in remission (HCC) 2024 Orders Only [facility] - Hematology/Oncology [address] [place] [phone] Cindy Garcia MD Vitamin D deficiency 10/31/2024 9:00 AM CDT Video Visit [facility] - Hematology/Oncology [address] [place] [phone] Cindy Garcia MD Family history of AML in remission 10/29/2024 11:13 AM CDT - 10/29/2024 2:14 PM CDT Hospital Encounter [facility] [address] [place] [address] Cindy Garcia MD [facility] Discharge Disposition: Home or Self Care 10/29/2024 Travel 10/29/2024 Orders Only [facility] - Hematology/Oncology [address] [place] [phone] Cindy Garcia MD 10/28/2024 Telephone [facility] [address] [place] [address] Olivia Peters RN Appointment 10/14/2024 8:49 AM CDT - 10/14/2024 11:59 PM CDT Hospital Encounter [facility] [address] [place] [phone] Timothy Banks MD Discharge Disposition: Home or Self Care 10/14/2024 Travel 10/10/2024 8:29 AM CDT - 10/10/2024 11:59 PM CDT Hospital Encounter [facility] [address] [place] [phone] Timothy Banks, Discharge Disposition: Home or Self Care 10/10/2024 Travel 10/09/2024 8:51 AM CDT - 10/09/2024 11:59 PM CDT Hospital Encounter [facility] [address] [place] [phone] Timothy Banks, MD Discharge Disposition: Home or Self Care 10/09/2024 Travel 10/08/2024 8:43 AM CDT - 10/08/2024 11:59 PM CDT Hospital Encounter [facility] [address] [place] [phone] Timothy Banks, Discharge Disposition: Home or Self Care 10/08/2024 Orders Only [facility] - Hematology/Oncology [address] [place] [phone] Nikole Chou RN Acute myeloid leukemia in remission (HCC) 10/08/2024 Travel 10/07/2024 11:20 AM CDT Office Visit [facility] - Hematology/Oncology [address] [place] [phone] Stephanie Connolly APRN-FAISAL 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); Chronic kidney disease, unspecified CKD stage 10/07/2024 10:25 AM CDT - 10/07/2024 11:59 PM CDT Hospital Encounter [facility] [address] [place] [phone] Timothy Banks MD Discharge Disposition: Home or Self Care 10/07/2024 Travel 09/30/2024 9:40 AM CDT Office Visit [facility] - Hematology/Oncology [address] [place] [phone] Stephanie Connolly APRN-FAISAL 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); Acute myeloid leuk w multilin dysplasia, 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); Neutropenia, unspecified type 09/30/2024 8:33 AM CDT - 09/30/2024 11:59 PM CDT Hospital Encounter [facility] [address] [place] [phone] Timothy Banks MD Zia, Maryam F, MD Discharge Disposition: Home or Self Care 09/30/2024 Travel 09/24/2024 Telephone [facility] - Cardiology [address] [place] [phone] Tracey Pond MA Follow-up 09/23/2024 9:30 AM CDT Office Visit [facility] - Hematology/Oncology [address] [place] [phone] Cindy Garcia MD 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) 09/23/2024 8:22 AM CDT - 09/23/2024 11:59 PM CDT Hospital Encounter [facility] [address] [place] [phone] Cindy Garcia MD Discharge Disposition: Home or Self Care 09/23/2024 Travel from Last 3 Months Social History [...] Recorded Patient Health Questionnaire-2 Score 0 09/23/2024 [facility] Occupat ional Health - Occupational Stress [...] Sex Assigned at Male 03/05/2024 8:04 AM PHYSICAL SCIENCES PROFESSOR Legal Sex Male 6:32 PM PHYSICAL SCIENCES PROFESSOR Gender Identity Male 03/05/2024 8:04 AM PHYSICAL SCIENCES PROFESSOR Sexual Orientation Straight 03/05/2024 8: 04 AM PHYSICAL SCIENCES PROFESSOR Last Filed Vital Signs Vital Sign Reading [...] Care Team (Late st Contact Info) Description 12/05/2024 9:30 AM CDT Office Visit [facility] - [address] [phone] 12/10/2024 9:00 AM CDT Hospital Encounter [facility] [address] [place] [phone] Timothy Banks MD [address] [place] [address] [place] [phone] 12/10/2024 10:00 AM CDT Office [facility] Hematology/Oncology [address] [place] [phone] Cindy Garcia MD [address] [place] [phone] 12/11/2024 9:30 AM CDT Appointment [facility] [address] [place] [phone] 12/12/2024 10:30 AM CDT Appointment [facility] [address] [place] [phone] 12/13/2024 9:30 AM CDT Appointment [facility] [address] [place] [phone] 12/16/2024 10:30 AM CDT Appointment [facility] [address] [place] [address] 01/06/2025 9:00 AM CDT Appointment [facility] [address] [place] [address] 03/07/2025 2:20 PM PHYSICAL SCIENCES PROFESSOR Office Visit [facility] - Cardiology [address] [facility], [facility] [address] [place] [phone] Kaushal Archer MD [address] [place] [phone] Health Maintenance Due Date Last Done Comments [...] this topic Medical Devices Implanted Type Area Mortgage Loan Officer Originator Device Identifier Shelf Expiration Date Model / Serial / Lot Port Implinfn Powerport Clrvu Argd Kandy Implanted:Qty : 1 on 04/11/2024 by Davian Marshall MD at [facility] Catheters Right: Chest Wall [employer] [id number] 02/07/2025 [id number] / / [id number] Procedures Procedure Name Priority Date/Time Associated Diagnosis [...] VITAMIN D 25-HYDROXY (11/11/2024 8:28 AM CDT) [facility] Vitamin D, 25 Hydroxy 30.0 30.0 - 80.0 ng/mL 11/11/2024 9:55 AM CDT [facility] Comment: The recommendations for 25-Hydroxy Vitamin [...] MD LAB - CHEMISTRY ORDERABLES Final Result [facility] [address] [place] [address], [facility] [phone] * (ABNORMAL) DIFFERENTIAL MANUAL (11/11/2024 8:28 AM CDT) Only the most recent of4 resultswithin the time period is included. Neutrophil % 18(L) 41 - 74 % 11/11/2024 11:21 AM [facility] Lymphocyte % 58(H) 17 - 47 % 11/11/2024 11:21 AM [facility] Monocyte % 13(H) 3 - 11 % 11/11/2024 11:21 AM [facility] Comment:Rare Reactive and Im mature monocytes. Eosinophil % 10(H) 0 - 7 % 11/11/2024 11:21 AM [facility] Metamyelocyte % 1(H) 0% % 11:21 AM [facility] Neutrophil Absolute 0.20(L) 1.60 - 7.50 x10E9/L 11/11/2024 11:21 AM [facility] Lymphocyte Absolute 0.64(L) 1.00 - 4.40 x10E9/L 11/11/2024 11:21 AM [facility] Monocyte Absolute 0.14(L) 0.15 - 1.00 x10E9/L 11/11/2024 11:21 AM [facility] Eosinophil Absolute 0.11 0.00 - 0.60 x10E9/L 11/11/2024 11:21 AM [facility] RBC Morphology REVIEWED 11/11/2024 11:21 AM [facility] Steven Cells MODERATE(A) (none) 11/11/2024 11:21 AM [facility] Macrocytosis MODERATE(A) (none) 11/11/2024 11:21 AM [facility] Ovalocytes MODERATE(A) (none) 11/11/2024 11:21 AM [facility] Schistocytes FEW(A) (none) 11/11/2024 11:21 AM [facility] Large Platelets PRESENT(A) (none) 11:21 AM [facility] Blood BLOOD SPECIMEN / Unknown Venipuncture / Unknown 11/11/2024 8:28 AM CDT 11/11/2024 8:51 AM CDT us Cindy Garcia MD LAB - HEMATOLOGY ORDERABLES Jamila stern Result [facility] [address] [place] [phone], [facility] [phone] * (ABNORMAL) CBC WITH DIFFERENTIAL (11/11/2024 8:28 AM CDT) Only the most recent of4 resultswithin the time period is included. WBC 1.1(L) 4.0 - 10.7 x10E9/L 11/11/2024 11:21 AM [facility] RBC Count 3.24(L) 4.30 - 5.80 x10E12/L 11/11/2024 11:21 AM [facility] Hemoglobin 11.8(L) 13.3 - 17.5 g/dL 11/11/2024 11:21 AM [facility] Hematocrit 35.1(L) 38.7 - 51.1 % 11/11/2024 11:21 AM [facility] MCV 108.3(H) 80.0 - 98.0 fL 11/11/2024 11:21 AM [facility] MCH 36.4(H) 26.7 - 33.6 pg 11/11/2024 11:21 AM [facility] MCHC 33.6 31.7 - 36.3 g/dL 11/11/2024 11:21 AM [facility] RDW-CV 16.8(H) 11.3 - 14.8 % 11/11/2024 11:21 AM [facility] Platelet Count 94(L) 150 - 420 x10E9/L 11/11/2024 11:21 AM [facility] MPV 11/11/2024 11:21 AM [facility] Comment:Unable to report Preliminary Absolute Neutrophil 0.23(L) 1.60 - 7.50 x10E9/L 11/11/2024 11:21 AM [facility] Comment:Preliminary ANC pend ing manual confirmation Blood BLOOD SPECIMEN / Unknown Venipuncture / Unknown 11/11/2024 8:28 AM CDT 11/11/2024 8:51 AM CDT us Cindy Garcia MD LAB - HEMATOLOGY ORDERABLES Jamila stern Result [facility] [address] [place] [address], [facility] [phone] * (ABNORMAL) COMPREHENSIVE METABOLIC PANEL (11/11/2024 8:28 AM CDT) Only the most recent of4 resultswithin the time period is included. BUN 16 7 - 26 mg/dL 11/11/2024 10:25 AM [facility] Creatinine 1.31(H) 0.71 - 1.16 mg/dL 11/11/2024 10:25 AM [facility] Sodium 142 136 - 145 mmol/L 11/11/2024 10:25 AM [facility] Potassium 3.9 3.5 - 4.5 mmol/L 11/11/2024 10:25 AM [facility] Chloride 114(H) 98 - 107 mmol/L 11/11/2024 10:25 AM [facility] CO2 19(L) 22 - 29 mmol/L 11/11/2024 10:25 AM [facility] Glucose 96 70 - 99 mg/dL 11/11/2024 10:25 AM [facility] Calcium 9.2 8.4 - 10.2 mg/dL 11/11/2024 10:25 AM [facility] Protein Total 6.5 6.0 - 8.3 g/dL 11/11/2024 10:25 AM [facility] Albumin 4.2 3.4 - 5.0 g/dL 11/11/2024 10:25 AM [facility] Bilirubin Total 0.5 0.2 - 1.2 mg/dL 11/11/2024 10:25 AM [facility] Alkaline Phosphatase 138 40 - 150 U/L 11/11/2024 10:25 AM [facility] ALT 43 5 - 55 U/L 11/11/2024 10:25 AM [facility] AST 27 5 - 34 U/L 11/11/2024 10:25 AM [facility] Anion Gap 9 6 - 16 11/11/2024 10:25 AM [facility] BUN/Creatinine Ratio 12 7 - 23 11/11/2024 10:25 AM [facility] Osmolality Calculated 295 275 - 295 mOsm/kg 11/11/2024 10:25 AM [facility] Albumin/Globulin Ratio 1.8 1.1 - 2.3 11/11/2024 10:25 AM [facility] eGFR by CKD-EPI 55(L) >=90 mL/min/1.7 3 m2 11/11/2024 10:25 AM [facility] Comment:Estimated Glomerular Filtration Rate (eGFR) calculated using the CKD-EPI Creatinine Equation (2020), per the National Kidney Foundation and [place] [employer]ph[employer] recommendations. Blood BLOOD SPECIMEN / Unknown Venipuncture / Unknown 11/11/2024 8:28 AM CDT 11/11/2024 8:52 AM T Cindy Garcia MD LAB - CHEMISTRY ORDERABLES Final Result [facility] [address] [place] [address], [facility] [phone] * CT Bone Marrow Biopsy (10/29/2024 1:09 [...] evaluation, please review the evaluation forms in [facility]. For details on monitored clinical parameters during the intra-service sedation time, please review the procedure nurse documentation in [facility]. > Interpreting Provider: Erasmo Brown on [...] The samples were collected by the hematology-oncology laborer tin can on site. In addition, one core sample [...] The samples were collected by the hematology-oncology laborer tin can on site. In addition, one core sample [...] pending at the time of this dictation. Sincere, Dr. Brown, was present and performed/supervised the [...] patient evaluation, please reviewthe evaluation forms in [facility]. For details on monitored clinical parameters during the intra-service sedation time, please review the procedurenurse documentation in [facility]. > Interpreting Provider: Erasmo Brown on 10/29/2024 10:[address] MD [address] ORDERABLES Final Result * FLOW CYTOMETRY BONE MARROW (10/29/2024 1:05 PM CDT) Case Report Flow Cytometry Case: [id number] Authorizing Provider: Cindy Garcia MD Collected: 10/29/2024 01:05 PM Ordering Location: [facility] Received: 10/29/2024 01:19 PM Pathologist: Daniela Bronson MD Specimen: Bone Marrow 11/04/2024 11:17 AM CDT [facility] Addendum 1 Minimal residual disease flow cytometry performed at [facility] is negative for an abnormal myeloid progenitor population at 0.033% of nucleated cells: Increased CD5, increased CD15, increased CD33, increased CD34, increased CD56, dim CD64, increased CD117, increased HLA-DR, increased CD123. 11/04/2024 11:17 AM [facility] Addendum electronically signed by Guillermo Brown MD on 11/04/2024 at 1117 CDT Final Diagnosis Bone marrow, flow cytometric immunophenotyping: - 0.4% myeloblasts identified in a markedly paucicellular specimen; minimal residual disease (MRD) flow cytometry pending with addendum to follow - No significant B-cell population or immunophenotypic evidence of a plasma cell neoplasm 11/04/2024 11:17 AM [facility] at 0915 CDT Flow Cytometry [...] cytometry specimen has been reviewed for quality specialist purposes. Please correlate with morphologic review of the bone marrow ([id number]). 11/04/2024 11:17 AM [facility] Flow Cytometry Results Differential Result Comment Flow Cell Count /uL 840 Total Viability % 95.0 Lymphocytes % 54 Dim CD45 Region % 6 Monocytes % 4 Granulocytes % 36 11/04/2024 11:17 AM [facility] Reason for test Acute myeloid leukemia 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) 11/04/2024 11:17 AM [facility] Client Specimen ID # [id number] 11/04/2024 11:17 AM [facility] Number of markers 19 were performed. A-2 Flow CD10 A-3 Flow CD13 A-5 Flow CD20 A-11 Flow CD2 A-13 Flow CD14 A-16 Flow CD117 A-17 Flow CD11b A-18 Flow CD11c A-1 Flow CD5 A-4 Flow CD19 A-6 Flow CD33 A-7 Flow CD34 A-8 Flow CD45 A-12 Flow CD7 A-14 Flow CD56 A-15 Flow CD64 A-9 [place]+CD19+ A-10 Lambda+CD19+ A-19 Flow HLA-DR 11/04/2024 11:17 AM CDT [facility] Pathologist Location at [facility] 11/04/2024 11:17 AM CDT [facility] Disclaimer Test performed at [facility], [address] [place] [address], [address]. *The established laboratory minimum viability is 70%. [...] complexity clinical testing. 11/04/2024 11:17 AM CDT [facility] Embedded Images 11:17 AM CDT [facility] Pathology/Cytolo gy BONE MARROW SPECIMEN / Unknown Collection / Unknown 10/29/2024 1:05 PM CDT 10/29/2024 1:19 PM CDT Cindy Garcia MD LAB - PATHOLOGY/CYTOLOGY ORDERAB LES Edited Result - Final [facility] [address] [place] [address] [address], [facility] [phone] * BONE MARROW BIOPSY (STL) (10/29/2024 1:05 PM CDT) Case Report Bone Marrow Patholog y Report Case: [id number] Authorizing Provider: Cindy Garcia MD Collected: 10/29/2024 01:05 PM Ordering Location: [facility] Received: 10/29/2024 01:19 PM Pathologist: Daniela Bronson MD Specimens: A) - Bone Marrow Clot B) - Bone Marrow Core C) - Bone Marrow Aspirate D) - Blood Peripheral 10/30/2024 3:20 PM [facility] Final Diagnosis Bone marrow, iliac crest, core biopsy, clot section, and aspirate: - No morphologic evidence of residual acute myeloid leukemia in a hypercellular bone marrow (50% cellular) - 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 10/30/2024 3:20 PM [facility] Peripheral Smear Description Not provided 10/30/2024 3:20 PM [facility] Bone Marrow Aspirate Differential [...] stain): no ring sideroblasts. 10/30/2024 3:20 PM [facility] Bone Marrow Core Biopsy [...] similar to core biopsy. 10/30/2024 3:20 PM [facility] Flow Cytometry Summary Bone marrow, flow cytometric immunophenotyping ([id number]): - 0.4% myeloblasts identified in a markedly paucicellular specimen; minimal residual disease (MRD) flow cytometry pending with addendum to follow - No significant B-cell population or immunophenotypic evidence of a plasma cell neoplasm 10/30/2024 3:20 PM [facility] Clinical History AML without having achieved remission 10/30/2024 3:20 PM [facility] Gross Description The requisition [...] in cassette B1. DF 10/30/2024 3:20 PM [facility] Microscopic Description Immunohistochemistry and special [...] population is not appreciated. 10/30/2024 3:20 PM [facility] Pathologist Location at [facility] 10/30/2024 3:20 PM [facility] Disclaimer The performance characteristics of all immunohistochemical and indirect immunofluorescence stains (if any) cited in this report were determined by the Histopathology Laboratory of [facility]. Some of these tests were developed [...] attending (teaching) pathologist. 10/30/2024 3:20 PM CDT [facility] Embedded Images 10/30/2024 3:20 PM CDT [facility] Pathology/Cytology PERIPHERAL BLOOD / Unknown [...] LAB - PATHOLOGY/CYTOLOGY ORDERAB LES Final Result [facility] [address] [place] [address], [facility] [phone] * LAB MISC TEST (NOT BLOOD) (10/29/2024 1:05 PM CDT) Only the most recent of2 resultswithin the time period is included. Test Name Comprehensive AML Panel + CEP8 + [id number] 11/05/2024 11:22 AM CDT [facility] NON INTERF Test Result See Scanned Report 11/05/2024 11:22 AM CDT [facility] NON INTERF Comment Ref Lab [facility] 11/05/2024 11:22 AM CDT [facility] REF LAB NON INTERF Other BONE MARROW SPECIMEN / Unknown Collection / Unknown 10/29/2024 1:05 PM CDT 10/29/2024 1:59 PM CDT us Cindy Garcia MD LAB - BODY FLUID ORDERABLES Jamila stern Result [facility] REF LAB NON INTERF [address] [place] [address], [facility] [phone] * CHROMOSOME ANALYSIS BONE MARROW PANEL (10/29/2024 1:05 PM CDT) Pathologist [facility] Chromosome Analysis Bone Marrow See Note Normal 11/09/2024 11:16 AM CDT [employer] ([facility]) Comment: Test Performed: Chromosome Analysis Specimen [...] and approved by Margaret Roberson, PhD, [facility] This result has been reviewed and approved by Emily Street MD A portion of this analysis was performed at the following location(s): [facility] Site CG-TN#1 INTERPRETIVE INFORMATION: Chromosome Analysis, Bone Marrow This test was developed and its performance characteristics determined by [facility]. It has not been cleared or approved by the US Food and Drug Administration. This test was performed in a CLIA certified laboratory and is intended for clinical purposes. [facility]ER Chromosome Analysis Bone Marrow See Note 11/09/2024 11:16 AM CDT [facility] [employer] ([facility]) Comment: Authorized individuals can access the [employer]ac[employer]et Enhanced Report with an [employer] Connect account using the following link. Your local lab can assist you in obtaining the patient report if you don't have a Connect account. [email or web address] Performed By: [facility] [address] [place] [address] Coat Fitter: Uche Morley MD, PhD CLIA Number: [id number] Bone marrow BONE MARROW SPECIMEN / Unknown 10/29/2024 1:05 PM CDT 10/29/2024 1:19 PM CDT us Cindy Garcia MD LAB - PATHOLOGY/CYTOLOGY ORDERAB LES Final Result Performing Organization Address [facility] Co de Phone Number [facility] [facility]) [address] [place] [address] * PT-INR (10/29/2024 11:46 AM CDT) PT 14.5 12.1 - 14.8 Seconds 10/29/2024 1:05 PM CDT [facility] INR 1.1 See Comment 10/29/2024 1:05 PM CDT [facility] Comment:The suggested therap eutic range for standard coumadin (warfarin) therapy is an INR of 2.0-3.0. For high-risk patients (Mechanical Mitral Valve Prosthesis, etc.), the suggested prophylactic therapeutic range is an INR of 2.5-3.5. Blood BLOOD SPECIMEN / Unknown Venipuncture / Unknown 10/29/2024 11:46 AM CDT 10/29/2024 11:50 AM CDT Bridgette Negro APRN-SALES FACILITATOR LAB - COAGULA TION ORDERABLES Final Result [facility] [address] [place] [address], [place] [phone] * (ABNORMAL) PLATELET COUNT AUTO (10/29/2024 11:46 AM CDT) Platelet Count 41(L) 150 - 420 x10E9/L 10/29/2024 12:49 PM CDT [facility] Blood BLOOD SPECIMEN / Unknown Venipuncture / Unknown 10/29/2024 11:46 AM CDT 10/29/2024 11:53 AM CDT us Bridgette Negro MACHINE BOOKKEEPER-SALES FACILITATOR LAB - HEMATOL OGY ORDERABLES Final Result [facility] [address] [place] [address], [facility] [phone] from Last 3 Months Insurance [id number] [id number] A[employer]NA MEDICARE ADV [id number] [id number] [id number] Advance Directives * Full Code (Latest Code Status on File) Date Activated Date Inactivated Comments 08/08/2024 4:19 PM 08/11/2024 7:29 PM * Full Code Date Activated Date Inactivated Comments 03/13/2024 9:41 PM 03/23/2024 2:56 PM Care Teams Foil Spinner Relationship Specialty Start Date End Date Timothy Banks MD [address] [place] [address] PCP - General 10/19/18 Cindy Garcia MD [address] [place] [address] Referral And Information Aide/Oncologis t Hematology and Oncology 03/24/24
--- OUTSIDE RECORDS SUMMARY | 2024-12-02 12:12 | XMS_ITS | Encounter Summary ---
Author Organization [facility] Address [address] [facility] [place] [address] Care Team Providers Care Belt Measurer Name Role Phone Timothy Banks MD Primary Care Provider [phone] Cindy Garcia MD Unavailable Encounter Details Date Type Department Care Team (Late st Contact Info) Description 02/13/2024 Lab Requisition [facility] - Pathology Lab [address] [place] [address] Rommel Dinh MD [address] [address] Illness, unspecified Social History Tobacco Use Types Packs/Day Years Used Date Smoking Tobacco: Never Assessed Sex and Gender Information Value Date Recorded Sex Assigned at Male 03/05/2024 8:04 AM WEBSITE PROJECT MANAGER Legal Sex Male 6:32 PM WEBSITE PROJECT MANAGER Gender Identity Male 03/05/2024 8:04 AM WEBSITE PROJECT MANAGER Sexual Orientation Straight 03/05/2024 8: 04 AM WEBSITE PROJECT MANAGER documented as of this encounter Plan of Treatment Upcoming Encounters Date Type Department Care Team (Late st Contact Info) Description 12/05/2024 9:30 AM CDT Office Visit [facility] - GI [address] [facility], [facility] [place] [address] 12/10/2024 9:00 AM CDT Hospital Encounter [facility] [address] [place] [address] Timothy Banks MD [address] [place] [address] 12/10/2024 10:00 AM CDT Office Visit [facility] - Hematology/Oncology [address] [place] [address] Cindy Garcia MD [address] [place] [address] 12/11/2024 9:30 AM CDT Appointment [facility] [address] [place] [address] 12/12/2024 10:30 AM CDT Appointment [facility] [address] [place] [address] 12/13/2024 9:30 AM CDT Appointment [facility] [address] [place] [address] 12/16/2024 10:30 AM CDT Appointment [facility] [address] [place] [address] 01/06/2025 9:00 AM CDT Appointment [facility] [address] [place] [address] 03/07/2025 2:20 PM WEBSITE PROJECT MANAGER Office Visit [facility] - Cardiology [address] [facility] [address] [place] [address] Kaushal Archer MD [address] [place] [address] documented as of this encounter Procedures Procedure Name Priority Date/Time Associated Diagnosis Comments BONE MARROW BIOPSY (STL) Routine 02/12/2024 9:20 AM WEBSITE PROJECT MANAGER Illness, unspecified documented in this encounter Results * BONE MARROW BIOPSY (STL) (02/12/2024 9:20 AM WEBSITE PROJECT MANAGER) Case Report Bone Marrow Patholog y Report Case: [id number] Authorizing Provider: Rommel Dinh Collected: 02/12/2024 09:20 AM MD Luke Ordering Location: [facility] - Received: 02/13/2024 12:34 PM Pathology Lab Pathologist: Daniela Bronson MD Specimens: A) - Bone Marrow Clot B) - Bone Marrow Core 02/14/2024 1:43 PM [facility] PATHOLOG[facility] LAB Final Diagnosis Bone marrow, iliac crest, core biopsy, clot section, and aspirate: - Increased myeloblasts (up to 30% by morphology) with mild trilineage dyspoiesis involving a hypercellular bone marrow (70-80% cellular), see comment - Absent iron stores - 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 02/14/2024 1:43 PM [facility] Peripheral Smear Description [...] including numerous giant platelets. 02/14/2024 1:43 PM [facility] Bone Marrow Aspirate [...] stain): no ring sideroblasts. 02/14/2024 1:43 PM [facility] Bone Marrow Core [...] similar to core biopsy. 02/14/2024 1:43 PM [facility] Flow Cytometry Summary Flow cytometry identified 35% myeloblasts and no diagnostic immunophenotypic evidence of monoclonal B-cells, an aberrant T-cell population, or plasma cell neoplasm ([id number]). 02/14/2024 1:43 PM [facility] Clinical History Chronic leukopenia 02/14/2024 1:43 PM [facility] Materials Received Received are 19 slide(s) and 3 blocks labeled [id number] along with a copy of the outside pathology report. [place] [address]. All original materials are returned to the referring institution, along with a copy of our final report. 02/14/2024 1:43 PM [facility] Microscopic Description CD34 [...] sections reveal absent stores. 02/14/2024 1:43 PM [facility] Pathologist Location at [facility] 02/14/2024 1:43 PM [facility] Disclaimer The performance characteristics of all immunohistochemical and indirect immunofluorescence stains (if any) cited in this report were determined by the Histopathology Laboratory of [facility]. Some of these tests were [...] the attending (teaching) pathologist. 02/14/2024 1:43 PM [facility] Embedded Images 02/14/2024 1:43 PM [facility] LAB Pathology/Cytology BONE MARROW SPECIMEN / Unknown 02/12/2024 9:20 AM WEBSITE PROJECT MANAGER 02/13/2024 12:34 PM WEBSITE PROJECT MANAGER Miscellaneous samples (specimen) BONE MARROW SPECIMEN / Unknown 02/12/2024 9:20 AM WEBSITE PROJECT MANAGER 02/13/2024 12:34 PM WEBSITE PROJECT MANAGER Rommel Dinh MD LAB - PATHOLOGY/CYT OLOGY ORDERABLES Final Result [facility] LAB [address] [place] [address], [facility] [phone] documented in this encounter Visit Diagnoses Diagnosis Illness, unspecified documented in this encounter Additional Health Concerns Infection Onset Date Last Indicated Resolved Time COVID-19 Under Investigation 08/08/2024 08/08/2024 08/08/2024 2:07 PM CDT documented as of this encounter Care Teams Belt Measurer Relationship Specialty Start Date End Date Timothy Banks MD [address] [place] [address] PCP - General 10/19/18 Cindy Garcia MD [address] [place] [address] Consumer Relations Complaint Clerk/Oncologis t Hematology and Oncology 03/24/24 documented as of this encounter
--- OUTSIDE RECORDS SUMMARY | 2024-12-02 12:12 | XMS_ITS ---
Author Organization [facility] Address [address] [place] [address] Care Team Providers Care Multimedia Specialist Name Role Phone Timothy Banks MD Primary Care Provider [phone] Cindy Garcia MD Unavailable Active Problems Problem [...]
--- OUTSIDE RECORDS SUMMARY | 2024-12-02 12:12 | XMS_ITS | Clinical Summary ---
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) 11/28/2024 Orders Only [facility] Oncology and Hematology - [place] [address] [place] [address] Frank Singh MD 11/26/2024 External Device Data STL ABSTRACTION Provider, Abstract 11/26/2024 External Device Data STL ABSTRACTION Provider, Abstract 11/26/2024 Orders Only [facility] Oncology and Hematology - [place] [address] [place] [phone] Frank Singh MD 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) 11/25/2024 Orders Only [facility] Oncology and Hematology [facility] Ashlyn [address] [place] [phone] Frank Singh MD 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) 11/19/2024 Orders Only [facility] Oncology and Hematology - [place] [address] [place] [phone] Frank Singh MD 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) 11/18/2024 Orders Only [facility] Oncology and Hematology [facility] [address] [place] [phone] Frank Singh MD 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) 11/13/2024 External Device Data STL ABSTRACTION Provider, Abstract 11/12/2024 Orders Only [facility] Oncology [facility] Hematology [facility] [address] [place] [address] Frank Singh MD 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) 11/11/2024 Orders Only [facility] Oncology [facility] Hematology [facility] [address] [place] [address] Frank Singh MD 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) 11/05/2024 Orders Only [facility] Oncology and Hematology - [place] [address] [place] [address] Frank Singh MD 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) 11/04/2024 Orders Only [facility] Oncology and Hematology - [place] [address] [place] [phone] Frank Singh MD 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) 10/29/2024 Orders Only [facility] Oncology and Hematology - [place] Cindy [address] Frank Singh MD 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) 10/28/2024 Orders Only [facility] Oncology and Hematology - [place] [address] Frank Singh MD 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) 10/23/2024 External Device Data STL ABSTRACTION Provider, Abstract 10/22/2024 External Device Data STL ABSTRACTION Provider, Abstract 10/22/2024 Orders Only [facility] Oncology and Hematology - [place] Cindy [address] Frank Singh MD 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) 10/21/2024 Orders Only [facility] Oncology and Hematology - [place] Cindy [address] Frank Singh MD 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) 10/15/2024 Orders Only [facility] Oncology and Hematology - [place] Cindy [address] Frank Singh MD 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) 10/14/2024 Orders Only [facility] Oncology and Hematology - [place] Cindy [address] [place] [phone] Frank Singh MD 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) 10/08/2024 Orders Only [facility] Oncology and Hematology - [place] [address]indy [address] [place] [phone] Frank Singh MD 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) 10/07/2024 Orders Only [facility] Oncology and Hematology - [place] [address]indy [address] Frank Singh MD 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) 10/01/2024 Orders Only [facility] Oncology and Hematology - [place] [address] Frank Singh MD 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) 09/30/2024 Orders Only [facility] Oncology and Hematology - [place] [address] [place] [address] Frank Singh MD 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) 09/24/2024 External Device Data STL ABSTRACTION Provider, Abstract 09/24/2024 Orders Only [facility] Oncology and Hematology - [place] Cindy [address] Frank Singh MD 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) 09/23/2024 Orders Only [facility] Oncology and Hematology - [place] [address]indy [address] Frank Singh MD 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) 09/17/2024 Orders Only [facility] Oncology and Hematology - [place] [address] Frank iSngh MD 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) 09/16/2024 Orders Only [facility] Oncology and Hematology - [place] [address]indy [address] [place] [phone] Frank Singh MD 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) 09/13/2024 Orders Only [facility] Oncology and Hematology - [place] Cindy [address] Frank Singh MD 09/10/2024 Orders Only [facility] Oncology and Hematology - [place] Cindy [address] Frank Singh MD 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) 09/09/2024 Orders Only [facility] Oncology and Hematology - [place] [address] [place] [address] Frank Singh MD 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) 09/03/2024 Orders Only [facility] Oncology and Hematology - [place] [address] [place] [address] Frank Singh MD 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) 09/02/2024 Orders Only [facility] Oncology and Hematology - [place] [address] [place] [address] Frank Singh MD Acute myeloid [...] Sex Assigned at Male 04/05/2024 3:07 PM MOBILE APPLICATION ENGINEER Legal Sex Male 10:53 AM CDT Gender Identity Male 04/05/2024 3:07 PM MOBILE APPLICATION ENGINEER Sexual Orientation Not on file Last Filed [...] Wellness Visit 04/10/2024 INFLUENZA VACCINE (#1) 2024 , 01/09/2020, 01/04/2020, Additional history exists DTAP/TDAP/TD VACCINES (2 - T d or Tdap) 09/17/2028 09/17/2018 PNEUMOCOCCAL VACCINE 50+ YEARS Completed 09/17/2018 , 08/27/2015 Procedures Procedure Name Priority Date/Time Associated Diagnosis Comments BASIC METABOLIC PANEL Routine 11/26/2024 9:51 AM CDT BASIC METABOLIC PANEL Routine 11/18/2024 12:23 PM CDT CBC WITH AUTODIFFERENTIAL Routine 2024 12:17 PM CDT BASIC METABOLIC PANEL Routine 09/16/2024 3:05 PM CDT CBC WITH AUTODIFFERENTIAL Routine 2024 12:24 PM CDT CBC WITH DIFFERENTIAL Routine 09/06/2024 12:09 PM CDT BASIC METABOLIC PANEL Routine 09/06/2024 12:08 PM CDT from Last 3 Months Results * BASIC METABOLIC PANEL (11/26/2024 9:51 AM CDT) Only the most recent of4 resultswithin the time period is included. Blood us Frank Singh MD CHEMISTRY ORDERABLES Final Resu lt * CBC WITH AUTODIFFERENTIAL (11/18/2024 12:17 PM CDT) Only the most recent of2 resultswithin the time period is included. Blood us Frank Singh MD HEMATOLOGY ORDERABLES Final Res ult * CBC WITH DIFFERENTIAL (09/06/2024 12:09 PM CDT) Blood us Frank Singh MD HEMATOLOGY ORDERABLES Final Res ult from Last 3 Months Insurance [employer]ETNA [facility] Address: [facility] [id number] [place] [address] Care Teams Injection Molding Supervisor Relationship Specialty Start Date End Date Timothy Banks MD [address] [place] [address] PCP - General Family Practice 02/01/24
--- OUTSIDE RECORDS SUMMARY | 2024-12-02 12:12 | XMS_ITS | Encounter Summary ---
Author Organization [facility] Address [address] [facility] [place] [address] Care Team Providers Care Warehouse Laborer Name Role Phone Timothy Banks MD Primary Care Provider [phone] Cindy Garcia MD Unavailable Encounter Details Date Type Department Care Team (Late st Contact Info) Description 11/04/2024 Results Follow-Up [facility] [address] [place] [address] Cindy Garcia MD [address] [place] [address] Social History Tobacco Use Types [...] Recorded Patient Health Questionnaire-2 Score 0 09/23/2024 [employer] [place] [facility] - Occupational Stress [...] any time in the past 12 m [facility], were you homeless or living in a snf (including now)? No 03/13/2024 Sex and Gender Information Value Date Recorded Sex Assigned at Male 03/05/2024 8:04 AM DRIER BELT CONVEYOR Legal Sex Male 6:32 PM DRIER BELT CONVEYOR Gender Identity Male 03/05/2024 8:04 AM DRIER BELT CONVEYOR Sexual Orientation Straight 03/05/2024 8: 04 AM DRIER BELT CONVEYOR documented as of this encounter Functional Status [...] Description 12/05/2024 9:30 AM CDT Office Visit [facility] - [address] [address] 12/10/2024 9:00 AM CDT Hospital Encounter [facility] [address] [place] [address] Timothy Banks MD [address] [place] [address] 12/10/2024 10:00 AM CDT Office Visit [facility] - Hematology/Oncology [address] [place] [address] Cindy Garcia MD [address] [place] [address] 12/11/2024 9:30 AM CDT Appointment [facility] [address] [place] [address] 12/12/2024 10:30 AM CDT Appointment [facility] [address] [place] [address] 12/13/2024 9:30 AM CDT Appointment [facility] [address] [place] [address] 12/16/2024 10:30 AM CDT Appointment [facility] [address] [place] [address] 01/06/2025 9:00 AM CDT Appointment [facility] [address] [place] [address] 03/07/2025 2:20 PM DRIER BELT CONVEYOR Office Visit [facility] - Cardiology [address] [facility] [address] [place] [address] Kaushal Archer MD [address] [place] [address] documented as of this encounter Visit Diagnoses Not on filedocumented in this encounter Care Teams Warehouse Laborer Relationship Specialty Start Date End Date Timothy Banks MD [address] [place] [address] PCP - General 10/19/18 Cindy Garcia MD [address] [place] [address] Tin Flipper/Oncologis t Hematology and Oncology 03/24/24 documented as of this encounter
--- OUTSIDE RECORDS SUMMARY | 2024-12-02 12:13 | XMS_ITS | Clinical Summary ---
Author Organization [facility] Address [address] [place] [address] Phone Care Team Providers Care Video And Sound Recorder Name Role Phone Timothy Banks MD Primary Care Provider [phone] Allergies No known active allergies Medications Cholecalciferol [...] AM MDT Legal Sex Male 9:10 AM [facility] Gender Identity Male 11/09/2019 [...] Completed 09/17/2018, 08/27/2015 Insurance [place] [address] Care Teams Video And Sound Recorder Relationship Specialty Start Date End Date Timothy Banks MD [address] [place] [address] PCP - General Family Medicine 11/14/18
--- OUTSIDE RECORDS SUMMARY | 2024-12-02 12:13 | XMS_ITS | Encounter Summary ---
Author Organization [facility] Address [address] [place] [address] Care Team Providers Care Base Ply Hand Name Role Phone Timothy Banks MD Primary Care Provider [phone] Cindy Garcia MD Unavailable Encounter Details Date Type Department Care Team (Late st Contact Info) Description 11/29/2024 Orders Only [facility] - Hematology/Oncology [address] [place] [address] Nikole Chou manager of information myeloid leukemia in remission (HCC) Social History [...] Recorded Patient Health Questionnaire-2 Score 0 09/23/2024 [facility] [place] of Occupat ional Health - Occupational Stress [...] any time in the past 12 m [facility], were you homeless or living in a usp (including now)? No 03/13/2024 Sex and Gender Information Value Date Recorded Sex Assigned at Male 03/05/2024 8:04 AM TANNING WHEEL OPERATOR Legal Sex Male 6:32 PM TANNING WHEEL OPERATOR Gender Identity Male 03/05/2024 8:04 AM TANNING WHEEL OPERATOR Sexual Orientation Straight 03/05/2024 8: 04 AM TANNING WHEEL OPERATOR documented as of this encounter Functional [...] Description 12/05/2024 9:30 AM CDT Office Visit [facility] - GI [address] [place] [address] 12/10/2024 9:00 AM CDT Hospital Encounter [facility] [address] [place] [address] Timothy Banks MD [address] [place] [address] 12/10/2024 10:00 AM CDT Office Visit [facility] - Hematology/Oncology [address] [place] [phone] Cindy Garcia MD [address] [place] [address] 12/11/2024 9:30 AM CDT Appointment [facility] [address] [place] [address] 12/12/2024 10:30 AM CDT Appointment [facility] [address] [place] [address] 12/13/2024 9:30 AM CDT Appointment [facility] [address] [place] [address] 12/16/2024 10:30 AM CDT Appointment [facility] [address] [place] [address] 01/06/2025 9:00 AM CDT Appointment [facility] [address] [place] [address] 03/07/2025 2:20 PM TANNING WHEEL OPERATOR Office Visit [facility] - Cardiology [address] [facility] [address] [place] [address] Kaushal Archer MD [address] [place] [address] documented as of this encounter Visit Diagnoses Diagnosis Acute myeloid leukemia in remission (HCC) Acute myeloid leukemia in remission documented in this encounter Care Teams Base Ply Hand Relationship Specialty Start Date End Date Timothy Banks MD [address] [place] [address] PCP - General 10/19/18 Cindy Garcia MD [address] [place] [address] Process Owner/Oncologis t Hematology and Oncology 03/24/24 documented as of this encounter
--- OUTSIDE RECORDS SUMMARY | 2024-12-02 12:13 | XMS_ITS | Encounter Summary ---
Author Organization [facility] Address [address] [place] [address] Phone Care Team Providers Care Bell Attendant Name Role Phone Timothy Banks MD Primary Care Provider Encounter Details Date Type Department Care Team (Late st Contact Info) Description 01/25/2024 Telephone [facility] Medicine Cardiology [address] [facility] Advanced Medicine 8th [place] [address] [place] [address] Alberto Gallegos MD [address] [facility] [address] [place] [address] Social History Tobacco Use Types Packs/Day Years Used Date Smoking Tobacco: Never Smokeless Tobacco: Never Alcohol Use Standard Drinks/Week Comments Yes 0 (1 standard drink = 0.6 oz pur e alcohol) Sex and Gender Information Value Date Recorded Sex Assigned at Not on file Legal Sex Male 4:19 AM PRESSURE SEALER AND TESTER Gender Identity Male 01/12/2020 7:43 PM CDT Sexual Orientation Straight 01/12/2020 7: 43 PM CDT documented as of this encounter Plan of Treatment Not on file documented as of this encounter Visit Diagnoses Not on filedocumented in this encounter Care Teams Bell Attendant Relationship Specialty Start Date End Date Timothy Banks MD PCP - General 07/08/16 documented as of this encounter
--- OUTSIDE RECORDS SUMMARY | 2024-12-02 12:13 | XMS_ITS | Encounter Summary ---
Author Organization [facility] Address [address] [place] [address] Care Team Providers Care Car Wash Attendant Automatic Name Role Phone Timothy Banks MD Primary Care Provider [phone] Cindy Garcia MD Unavailable Encounter Details Date Type Department Care Team (Late st Contact Info) Description 11/22/2024 Orders Only [facility] - Hematology/Oncology [address] [place] [address] Nikole Chou stoker erector myeloid leukemia in remission (HCC) Social History [...] Recorded Patient Health Questionnaire-2 Score 0 09/23/2024 [facility] [place] of Occupat ional Health - Occupational Stress [...] any time in the past 12 m [facility], were you homeless or living in a mcfp (including now)? No 03/13/2024 Sex and Gender Information Value Date Recorded Sex Assigned at Male 03/05/2024 8:04 AM MANAGER GALLERY Legal Sex Male 6:32 PM MANAGER GALLERY Gender Identity Male 03/05/2024 8:04 AM MANAGER GALLERY Sexual Orientation Straight 03/05/2024 8: 04 AM MANAGER GALLERY documented as of this encounter Functional Status [...] Office Visit [facility] [address] [place] [phone] 12/10/2024 9:00 AM CDT Hospital Encounter [facility] [address] [place] [address] Timothy Banks MD [place] [address] 12/10/2024 10:00 AM CDT Office Visit [facility] - Hematology/Oncology [address] [place] [address] Cindy Garcia MD [address] [place] [address] 12/11/2024 9:30 AM CDT Appointment [facility] [address] [place] [address] 12/12/2024 10:30 AM CDT Appointment [facility] [address] [place] [address] 12/13/2024 9:30 AM CDT Appointment [facility] [address] [place] [address] 12/16/2024 10:30 AM CDT Appointment [facility] [address] [place] [address] 01/06/2025 9:00 AM CDT Appointment [facility] [address] [place] [address] 03/07/2025 2:20 PM MANAGER GALLERY Office Visit [facility] - Cardiology [address] [facility] [address] [place] [address] Kaushal Archer MD [address] [place] [address] documented as of this encounter Visit Diagnoses Diagnosis Acute myeloid leukemia in remission (HCC) Acute myeloid leukemia in remission documented in this encounter Care Teams Car Wash Attendant Automatic Relationship Specialty Start Date End Date Timothy Banks MD [address] [place] [address] PCP - General 10/19/18 Cindy Garcia MD [address] [place] [address] Senior Data Integration Developer/Oncologis t Hematology and Oncology 03/24/24 documented as of this encounter
--- OUTSIDE RECORDS SUMMARY | 2024-12-02 12:13 | XMS_ITS | Clinical Summary ---
Author Organization 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 Heart disease 2016 Chronic kidney disease 2010 Sleep apnea 2018 Family History Medical History Relation Name Comments Alzheimer's disease Brother Emmett Kern Alzheimer's disease Father Jeffrey Kern Alzheimer's disease Mother Daisy Kern Alzheimer's disease Sister Leslie Dewey Relation Name Status Comments Brother Emmett Kern Father Jeffrey Kern Mother Diasy Kern Sister Leslie Dewey Social History Tobacco Use Types Packs/Day Years Used Date Smoking Tobacco: Never Smokeless Tobacco: Never Alcohol Use Standard Drinks/Week Comments Yes 0 (1 standard drink = 0.6 oz pur e alcohol) Sex and Gender Information Value Date Recorded Sex Assigned at Not on file Legal Sex Male 4:19 AM 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
--- OUTSIDE RECORDS SUMMARY | 2024-12-02 12:13 | XMS_ITS | Clinical Summary ---
Author Organization [facility] Address [address] [place] [address] Care Team Providers Care Ambulance Officer Name Role Phone Unavailable Primary Care Provider Unavailabl e Immunizations Immunization Administration Dates Next Due Covid-19, Mrna, Lnp-s, Pf, 30 Mcg/0.3 Ml Dose (P fizer) 04/14/2021 Social History Tobacco Use Types Packs/Day Years Used Date Smoking Tobacco: Never Assessed Sex and Gender Information Value Date Recorded Sex Assigned at Not on file Legal Sex Male 3:46 PM FINANCIAL ASSOCIATE Gender Identity Not on file Sexual Orientation [...]
--- OUTSIDE RECORDS SUMMARY | 2024-12-02 12:13 | XMS_ITS | Encounter Summary ---
Author Organization [facility] [employer] [facility] Address [address] [place] [address] Care Team Providers Care Dental Cream Maker Name Role Phone Timothy Banks MD Primary Care Provider Encounter Details Date Type Department Care Team (Late st Contact Info) Description 11/28/2024 Orders Only [facility] Oncology and Hematology - [place] [address] [facility] [address] [place] [address] Frank Singh MD [address] [facility] [address] [place] [address] Social History Tobacco Use Types Packs/Day Years Used Date Smoking Tobacco: Never Smokeless Tobacco: Never Alcohol Use Standard Drinks/Week Comments Yes 0 (1 standard drink = 0.6 oz pur e alcohol) Very Ocasionally Sex and Gender Information Value Date Recorded Sex Assigned at Male 04/05/2024 3:07 PM WALLPAPERER Legal Sex Male 10:53 AM CDT Gender Identity Male 04/05/2024 3:07 PM WALLPAPERER Sexual Orientation Not on file documented as of this encounter Plan of Treatment Not on file documented as of this encounter Procedures Procedure Name Priority Date/Time Associated Diagnosis Comments BASIC METABOLIC PANEL Routine 11/26/2024 9:51 AM CDT documented in this encounter Results * BASIC METABOLIC PANEL (11/26/2024 9:51 AM CDT) Blood Frank Singh MD CHEMISTRY ORDERABLES Final Resu lt documented in this encounter Visit Diagnoses Not on filedocumented in this encounter Care Teams Dental Cream Maker Relationship Specialty Start Date End Date Timothy Banks MD [address] [place] [address] PCP - General Family Practice 02/01/24 documented as of this encounter
--- OUTSIDE RECORDS SUMMARY | 2024-12-02 12:13 | XMS_ITS | Encounter Summary ---
Author Organization [facility] Address [address] [place] [address] Care Team Providers Care House Wirer Name Role Phone Timothy Banks MD Primary Care Provider [phone] Encounter Details Date Type Department Care Team (Late st Contact Info) Description 06/13/2017 Orders Only [facility] Health Information Management [address] [place] [address] Scanning, Provider Social History Tobacco Use Types Packs/Day Years Used Date Smoking Tobacco: Never Smokeless Tobacco: Never Alcohol Use Standard Drinks/Week Comments Yes 0 (1 standard drink = 0.6 oz pur e alcohol) Sex and Gender Information Value Date Recorded Sex Assigned at Not on file 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
--- OUTSIDE RECORDS SUMMARY | 2024-12-02 12:13 | XMS_ITS | Encounter Summary ---
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) Social History Tobacco Use Types Packs/Day Years Used Date Smoking Tobacco: Never Smokeless Tobacco: Never Alcohol Use Standard Drinks/Week Comments Yes 0 (1 standard drink = 0.6 oz pur e alcohol) Very Ocasionally Sex and Gender Information Value Date Recorded Sex Assigned at Male 04/05/2024 3:07 PM DIRECTOR OF ROTC Legal Sex Male 10:53 AM CDT Gender Identity Male 04/05/2024 3:07 PM DIRECTOR OF ROTC Sexual Orientation Not on file documented as of this encounter Plan of Treatment Not on file documented as of this encounter Visit Diagnoses Diagnosis 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 [address] PCP - General Family Practice 02/01/24 documented as of this encounter
--- OUTSIDE RECORDS SUMMARY | 2024-12-02 12:13 | XMS_ITS | Encounter Summary ---
Author Organization [facility] Address [address] [place] [address] Care Team Providers Care Gluing Crew Leader Name Role Phone Timothy Banks MD Primary Care Provider [phone] Cindy Garcia MD Unavailable Encounter Details Date Type Department Care Team (Late st Contact Info) Description 02/12/2024 Lab Requisition [facility] - Pathology Lab [address] [place] [address] Rommel Dinh MD [address] [facility] [address] [place] [address] Decreased white blood cell count, unspecified Social History Tobacco Use Types Packs/Day Years Used Date Smoking Tobacco: Never Assessed Sex and Gender Information Value Date Recorded Sex Assigned at Male 03/05/2024 8:04 AM ELECTRONICS COMPUTER MECHANIC Legal Sex Male 6:32 PM ELECTRONICS COMPUTER MECHANIC Gender Identity Male 03/05/2024 8:04 AM ELECTRONICS COMPUTER MECHANIC Sexual Orientation Straight 03/05/2024 8: 04 AM ELECTRONICS COMPUTER MECHANIC documented as of this encounter Plan of Treatment Upcoming Encounters Date Type Department Care Team (Late Contact Info) Description 12/05/2024 9:30 AM CDT Office Visit [facility] GI [address] [facility] [place] [address] 12/10/2024 9:00 AM CDT Hospital Encounter [facility] [address] [place] [address] Timothy Banks MD [address] [place] [address] 12/10/2024 10:00 AM CDT Office Visit [facility] - Hematology/Oncology [address] [place] [address] Cindy Garcia MD [address] [place] [address] 12/11/2024 9:30 AM CDT Appointment [facility] [address] [place] [address] 12/12/2024 10:30 AM CDT Appointment [facility] [address] [place] [address] 12/13/2024 9:30 AM CDT Appointment [facility] [address] [place] [address] 12/16/2024 10:30 AM CDT Appointment [facility] [address] [place] [address] 01/06/2025 9:00 AM CDT Appointment [facility] [address] [place] [address] 03/07/2025 2:20 PM ELECTRONICS COMPUTER MECHANIC Office Visit [facility] - Cardiology [address] [facility] [address] [place] [address] Kaushal Archer MD [address] [place] [address] documented as of this encounter Procedures Procedure Name Priority Date/Time Associated Diagnosis Comments FLOW CYTOMETRY BONE MARROW Routine 02/12/2024 9:20 AM ELECTRONICS COMPUTER MECHANIC Decreased white blood cell count, unspecified documented in this encounter Results * FLOW CYTOMETRY BONE MARROW (02/12/2024 9:20 AM ELECTRONICS COMPUTER MECHANIC) Case Report Flow Cytometry Case: [id number] Authorizing Provider: Rommel Dinh Collected: 02/12/2024 09:20 AM MD Luke Ordering Location: [facility] - Received: 02/12/2024 12:12 PM Pathology Lab Pathologist: Daniela Bronson MD Specimen: Bone Marrow 02/12/2024 3:44 PM [facility] Final Diagnosis Bone marrow, flow [...] 3:44 PM [facility] at 1544 ELECTRONICS COMPUTER MECHANIC Flow Cytometry Interpretation Viability: 97% B-cells: 6% [...] 3:44 PM [facility] Flow Cytometry Results Differential Result Comment Flow Cell Count /uL 20,700 Total Viability % 97.0 Lymphocytes % 12 Dim CD45 Region % 44 Monocytes % 1 Granulocytes % 42 02/12/2024 3:44 PM [facility] Reason for test Decreased white blood cell count, unspecified 02/12/2024 3:44 PM [facility] LAB Client Specimen ID # [id number] 02/12/2024 3:44 PM [facility] LAB Number of markers 29 [...] CD56 A-20 Flow CD64 A-28 cyCD22 A-29 anHD78e A-16 [place]+CD19+ A-17 Lambda+CD19+ A-24 Flow HLA-DR A-25 Flow MPO A-26 Flow TdT A-27 cyCD3 02/12/2024 3:44 PM [facility] LAB Pathologist Location at [facility] 02/12/2024 3:44 PM [facility]OLOGY LAB Disclaimer Test performed at [facility], [address] [place] [address], [address]. *The established laboratory minimum viability is 70%. [...] high complexity clinical testing. 02/12/2024 3:44 PM [facility] Embedded Images 3:44 PM [facility] Pathology/Cytolo gy BONE MARROW SPECIMEN / Unknown 02/12/2024 9:20 AM ELECTRONICS COMPUTER MECHANIC 02/12/2024 12:12 PM ELECTRONICS COMPUTER MECHANIC Rommel Dinh MD LAB - PATHOLOGY/CYT OLOGY ORDERABLES Final Result Performing Organization Address City/State/[facility] Co de Phone Number [facility] PATH[facility] [address] [facility] [place] [address], [facility] [phone] documented in this encounter Visit Diagnoses Diagnosis Decreased white blood cell count, unspecified documented in this encounter Additional Health Concerns Infection Onset Date Last Indicated Resolved Time COVID-19 Under Investigation 08/08/2024 08/08/2024 08/08/2024 2:07 PM CDT documented as of this encounter Care Teams Gluing Crew Leader Relationship Specialty Start Date End Date Timothy Banks MD [address] [place] [address] PCP - General 10/19/18 Cindy Garcia MD [address] [place] [address] Furrier Designer/Oncologis t Hematology and Oncology 03/24/24 documented as of this encounter
--- OUTSIDE RECORDS SUMMARY | 2024-12-02 12:13 | XMS_ITS | Encounter Summary ---
Author Organization [facility] Address [address] [place] [address] Phone Care Team Providers Care Follow Up Specialist Name Role Phone Timothy Banks MD Primary Care Provider [phone] Encounter Details Date Type Department Care Team (Late st Contact Info) Description 08/25/2017 Orders Only [facility] ProviderDusty MD [address] [place] [address] Social History Tobacco Use Types Packs/Day Years Used Date Smoking Tobacco: Never Smokeless Tobacco: Never Alcohol Use Standard Drinks/Week Comments Yes 0 (1 standard drink = 0.6 oz pur e alcohol) Sex and Gender Information Value Date Recorded Sex Assigned at Not on file Legal Sex Male 4:19 AM 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
--- OUTSIDE RECORDS SUMMARY | 2024-12-02 12:13 | XMS_ITS | Encounter Summary ---
Author Organization [facility] Address [address] [place] [address] Care Team Providers Care Senior Scientist Name Role Phone Timothy Banks MD Primary Care Provider [phone] Cindy Garcia MD Unavailable Encounter Details Date Type Department Care Team (Late st Contact Info) Description 09/28/2023 Lab Requisition [facility] - DermPath Lab [address] [place] [address] Timothy Banks MD [address] [place] [address] Social History Tobacco Use Types Packs/Day Years Used Date Smoking Tobacco: Never Assessed Sex and Gender Information Value Date Recorded Sex Assigned at Male 03/05/2024 8:04 AM LITHOGRAPH PRINTER Legal Sex Male 6:32 PM LITHOGRAPH PRINTER Gender Identity Male 03/05/2024 8:04 AM LITHOGRAPH PRINTER Sexual Orientation Straight 03/05/2024 8: 04 AM LITHOGRAPH PRINTER documented as of this encounter Plan of Treatment Upcoming Encounters Date Type Department Care Team (Late Contact Info) Description 12/05/2024 9:30 AM CDT Office Visit [facility] - GI [address] [place] [address] 12/10/2024 9:00 AM CDT Hospital Encounter [facility] [address] [place] [address] Timothy Banks MD [address] [place] [address] 12/10/2024 10:00 AM CDT Office Visit [facility] - Hematology/Oncology [address] [place] [phone] Cindy Garcia MD [address] [place] [address] 12/11/2024 9:30 AM CDT Appointment [facility] [address] [place] [address] 12/12/2024 10:30 AM CDT Appointment [facility] [address] [place] [address] 12/13/2024 9:30 AM CDT Appointment [facility] [address] [place] [address] 12/16/2024 10:30 AM CDT Appointment [facility] [address] [place] [address] 01/06/2025 9:00 AM CDT Appointment [facility] [address] [place] [address] 03/07/2025 2:20 PM LITHOGRAPH PRINTER Office Visit [facility] - Cardiology [address] [facility] [address] [place] [address] Kaushal Archer MD [address] [place] [address] documented as of this encounter Procedures Procedure Name Priority Date/Time Associated Diagnosis Comments DERMATOPATHOLOGY Routine 09/27/2023 12:0 0 AM CDT documented in this encounter Results * DERMATOPATHOLOGY (09/27/2023 12:00 AM CDT) Case Report Dermatopathology Report Case: [id number] Authorizing Provider: Timothy Banks MD Collected: 09/27/2023 12:00 AM Ordering Location: [facility] - Received: [...] specimen consists of a shave biopsy measuring [id number] mm. Jar 0. Specimen B: Received is [...] characteristic determined by the Dermatopathology Laboratory at [facility], directed by Dr. Randall Pringle. These tests need not be, and therefore are not, approved by the [place] Food and Drug Administration. The tests are used for clinical purposes. Billing Codes Specimen Charges Stain Charges 39926 69295 1 1 4 12:35 PM CDT DERMATOPATHOLOGY LABORATORY Embedded Images 4 12:35 PM CDT DERMATOPATHOLOGY LABORATORY Pathology/Cytology TISSUE SPECIMEN FROM SKIN / Unknown 09/27/2023 09/28/2023 10:46 AM CDT Miscellaneous samples (specimen) TISSUE SPECIMEN FROM SKIN / Unknown 09/27/2023 09/28/2023 10:46 AM CDT Timothy Banks MD LAB - PATHOLOGY/CYTOLOGY CHELI MONREAL Final Result Performing Organization Address City/State/[facility] Co de Phone Number DERMATOPATHOLOGY LABORATORY [facility] Department of Dermatology Formerly [facility] Medicine [address] [place] [address], [address] [phone] documented in this encounter Visit Diagnoses Not on filedocumented in this encounter Additional Health Concerns Infection Onset Date Last Indicated Resolved Time COVID-19 Under Investigation 08/08/2024 08/08/2024 08/08/2024 2:07 PM CDT documented as of this encounter Care Teams Senior Scientist Relationship Specialty Start Date End Date Timothy Banks MD [address] [place] [address] PCP - General 10/19/18 Cindy Garcia MD [address] [place] [address] [employer] Crew Boss/Oncologis t Hematology and Oncology 03/24/24 documented as of this encounter
[2024-12-02 12:18] LABS: Hematocrit 37.3 % (42.0-52.0); Hemoglobin 12.6 g/dL (14.0-18.0); Immature Granulocyte Percent A 1.1 % (0-0.5); Immature Platelet Fraction Pct 16.0 % (0.9-11.2); Lymphocytes Absolute Auto 0.52 K/mm3 (0.9-3.2); Mean Corpuscular HGB Conc 33.8 g/dl (32-36); Mean Corpuscular Hemoglobin 36.6 pg (26-34); Mean Corpuscular Volume 108.4 fl (80-100); Nucleated Red Blood Cells Absolute Auto 0.020 K/mm3 (0.0-0.012); Nucleated Red Blood Cells Perc 2.1 % (0.0-0.2); Platelet Count Result 62 k/mm3 (150-375); Red Blood Count 3.44 M/mm3 (4.6-6.20); White Blood Count 0.9 K/mm3 (4.5-10.0)
[2024-12-02 12:20] LABS: Schistocytes None Seen
[2024-12-02 12:22] LABS: Anisocytosis 1+; Macrocytosis 1+ (NORMAL)
[2024-12-02 15:48] LABS: Anion Gap 9 mmol/L (4-12); Blood Urea Nitrogen 16 mg/dL (9-20); Calcium 9.8 mg/dL (8.4-10.2); Carbon Dioxide 27 mmol/L (22-30); Chloride 105 mmol/L (98-107); Estimated Glomerular Filt Rate 48; Glucose 93 mg/dL (65-110); Potassium 4.9 mmol/L (3.4-5.0); Sodium 141 mmol/L (137-145)
== END 2024-12-02 11:38 | disposition home or self-care (01) ==
PROVIDERS: Internal Medicine Hematology & Oncology; PCP Family Medicine
DX: C92.01 Acute myeloblastic leukemia, in remission (principal)
CPT/HCPCS: 36415; 80048; 85025; 85055

== ENCOUNTER 2025-01-03 09:12 | Outpatient (CLI) | payer MEDICARE, SELFPAY ==
--- OUTSIDE RECORDS SUMMARY | 2025-01-03 09:16 | XMS_ITS | Encounter Summary ---
Author Organization [facility] Address [address] [place] [address] Phone Care Team Providers Care Electric Organ Checker Name Role Phone Timothy Banks MD Primary Care Provider [phone] Encounter Details Date Type Department Care Team (Latest Contact Info) Description 01/06/2024 Orders Only [facility] IM HEMATOLOGY Scanning, Provider Social History Tobacco Use Types Packs/Day Years Used Date Smoking Tobacco: Never Smokeless Tobacco: Never Alcohol Use Standard Drinks/Week Comments Yes 0 (1 standard drink = 0.6 oz pur e alcohol) Sex and Gender Information Value Date Recorded Sex Assigned at Not on file Legal Sex Male 4:19 AM GREEN CHAIN OFFBEARER Gender Identity Male 01/12/2020 7:43 PM CDT Sexual Orientation Straight 01/12/2020 7: 43 PM CDT documented as of this encounter Plan of Treatment Upcoming Encounters Date Type Department Care Team (Latest Contact Info) Description 01/06/2025 Orders Only [facility] IM HEMATOLOGY Scanning, Provider documented as of this encounter Procedures Procedure Name Priority Date/Time Associated Diagnosis Comments CARDIOLOGY DOCUMENT SCAN 024 12:00 AM CDT documented in this encounter Results * Cardiology Document Scan (01/06/2024 12:00 AM CDT) Anatomical Region Laterality Modality Other us Provider Scanning CV CARDIAC SERVICES PROCEDURES Edited Result - Final documented in this encounter Visit Diagnoses Not on filedocumented in this encounter Care Teams Electric Organ Checker Relationship Specialty Start Date End Date Timothy Banks MD PCP - General 07/08/16 documented as of this encounter
--- OUTSIDE RECORDS SUMMARY | 2025-01-03 09:16 | XMS_ITS ---
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 with thrombus seen within the IVC filter with resultant multiple venous collaterals Plan: -Continue eliquis Assessment & Plan (12/14/2024 3:13 AM CDT): -Had at least 2 DVTs of each leg, chronic venous insufficiency on exam -On eliquis for recurrent DVTs -CT scan showed unchanged 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 with thrombus seen within the IVC filter with resultant multiple venous collaterals Plan: -Continue eliquis RBBB 12/14/2024 Assessment & Plan (12/14/2024 9:01 AM CDT): -On diltiazem and amiodarone daily as home medication Plan: -Continue diltiazem and amiodarone Assessment & Plan (12/14/2024 3:13 AM CDT): -On diltiazem and amiodarone daily as home medication Plan: -Continue diltiazem and amiodarone QAMAR (obstructive sleep apnea) 12/14/2024 Assessment & Plan (12/14/2024 9:01 AM CDT): -hx of QAMAR on CPAP, unclear of home settings Plan: -CPAP in hospital -RT consulted Assessment & Plan (12/14/2024 3:13 AM CDT): -hx of QAMAR on CPAP, unclear of home settings Plan: -CPAP in hospital -RT consulted GERD (gastroesophageal reflux disease) Assessment & Plan (12/14/2024 1:00 PM CDT): -Hiatal hernia s/p repair in 2004 Plan: -Continue lansoprazole daily Assessment & Plan (12/14/2024 3:13 AM CDT): #Hiatal hernia s/p repair in 2004 -Continue lansoprazole daily 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 Garcia at [facility], received 7th cycle of chemotherapy 11/08-11/11 Plan: -Continue cresemba, valtrex for chronic infection prophylaxis -Hold cefpodoxime b/c on zosyn currently for diverticulitis -CBC daily -Heme/onc consulted for recommendations on inpatient management of AML Leukopenia, unspecified type 12/13/2024 Assessment & Plan (12/14/2024 1:00 PM CDT): -WBC count of 2.0 on admission, patient recalls having low WBC after each chemotherapy treatment in the past, though does note that by this time after his treatments his numbers have sometimes bounced back -On cresemba, valtrex, and cefpodoxime daily for chronic infection prophalaxis in the setting of chemotherapy and leukopenia -Follows with Dr. Garcia at [facility], received 7th cycle of chemotherapy 11/08-11/11 Plan: -Continue cresemba, valtrex for chronic infection prophylaxis -Hold cefpodoxime b/c on zosyn currently for diverticulitis -CBC daily -Heme/onc consulted for recommendations on inpatient management of AML Assessment & Plan (12/14/2024 3:13 AM CDT): -WBC count of 2.0 on admission, patient recalls having low WBC after each chemotherapy treatment in the past, though does note that by this time after his treatments his numbers have sometimes bounced back -On cresemba, valtrex, and cefpodoxime daily for chronic infection prophalaxis in the setting of chemotherapy and leukopenia Plan: -Continue cresemba, valtrex for chronic infection prophylaxis -Hold cefpodoxime b/c on zosyn currently for diverticulitis -CBC daily Diverticulitis of colon 12/13/2024 Assessment & Plan (12/14/2024 1:29 PM CDT): -LLQ abdominal pain for approximately 3 weeks and overall not feeling well since last chemotherapy session (session 7 per patient) -hx of diverticulitis at least 2x in last year (01/01, 09/01) -No constipation, diarrhea, blood in stool, dark stool, improvement of pain on bowel movements -LLQ tenderness to light and deep palpation, no rebound tenderness -CT scan showed findings consistent with uncomplicated diverticulitis of the distal sigmoid colon in the LLQ -Lactic acid of 3.5, initially improved to 2.2, uptrending to 2.6 Plan: -Zosyn for diverticulitis -Pain control with: tylenol 1g TID prn, oxycodone 5mg q6hrs prn, oxycodone 10mg q6hrs -Zofran 4mg q4hrs for nausea, vomiting -Continue to monitor CBC, electrolytes -Trend lactic acid Assessment & Plan (12/14/2024 5:00 AM CDT): -LLQ abdominal pain for around last 3 weeks and overall abdomen not feeling well since last chemotherapy session (session 7 per patient) -hx of diverticulitis at least 2x in last year -No constipation, diarrhea, blood in stool, dark stool, improvement of pain on bowel movements -LLQ tenderness to light and deep palpation, no rebound tenderness -CT scan showed findings consistent with uncomplicated diverticulitis of the distal sigmoid colon in the LLQ per radiology read -Lactic acid of 3.5, improved to 2.2 during admission Plan: -Zosyn for diverticulitis -tylenol 1g TID prn -Tolerating diet Left lower quadrant abdominal pain 12/13/2024 Assessment & Plan (12/14/2024 1:29 PM CDT): -LLQ abdominal pain for approximately 3 weeks and overall not feeling well since last chemotherapy session (session 7 per patient) -hx of diverticulitis at least 2x in last year (01/01, 09/01) -No constipation, diarrhea, blood in stool, dark stool, improvement of pain on bowel movements -LLQ tenderness to light and deep palpation, no rebound tenderness -CT scan showed findings consistent with uncomplicated diverticulitis of the distal sigmoid colon in the LLQ -Lactic acid of 3.5, initially improved to 2.2, uptrending to 2.6 Plan: -Zosyn for diverticulitis -Pain control with: tylenol 1g TID prn, oxycodone 5mg q6hrs prn, oxycodone 10mg q6hrs -Zofran 4mg q4hrs for nausea, vomiting -Continue to monitor CBC, electrolytes -Trend lactic acid Assessment & Plan (12/14/2024 5:00 AM CDT): -LLQ abdominal pain for around last 3 weeks and overall abdomen not feeling well since last chemotherapy session (session 7 per patient) -hx of diverticulitis at least 2x in last year -No constipation, diarrhea, blood in stool, dark stool, improvement of pain on bowel movements -LLQ tenderness to light and deep palpation, no rebound tenderness -CT scan showed findings consistent with uncomplicated diverticulitis of the distal sigmoid colon in the LLQ per radiology read -Lactic acid of 3.5, improved to 2.2 during admission Plan: -Zosyn for diverticulitis -tylenol 1g TID prn -Tolerating diet Weakness 08/08/2024 Assessment & Plan (08/08/2024 4:17 [...] Chronic atrial fibrillation 08/08/2024 Assessment & Plan (12/14/2024 9:01 AM CDT): -On diltiazem and amiodarone daily as home medication Plan: -Continue diltiazem and amiodarone Assessment & Plan (12/14/2024 3:13 AM CDT): -On diltiazem and amiodarone daily as home medication Plan: -Continue diltiazem and amiodarone Assessment & Plan (08/08/2024 4:17 PM CDT): [...] 1 , Cycle 8 - Planned for 01/06/2025) Next Day (Day 2, Cycle 8 - Planned for 01/07/2025) decitabine (Dacogen) infusionvenetoclax (Venclexta) decitabine (Dacogen) 42 [...]
--- OUTSIDE RECORDS SUMMARY | 2025-01-03 09:16 | XMS_ITS | Encounter Summary ---
Author Organization [facility] Address [address] [place] [address] Phone Care Team Providers Care Telex Operator Name Role Phone Timothy Banks MD Primary Care Provider [phone] Encounter Details Date Type Department Care Team (Latest Contact Info) Description 01/08/2024 Orders Only [facility] IM HEMATOLOGY Scanning, Provider Social History Tobacco Use Types Packs/Day Years Used Date Smoking Tobacco: Never Smokeless Tobacco: Never Alcohol Use Standard Drinks/Week Comments Yes 0 (1 standard drink = 0.6 oz pur e alcohol) Sex and Gender Information Value Date Recorded Sex Assigned at Not on file Legal Sex Male 4:19 AM QUANTITATIVE RESEARCHER Gender Identity Male 01/12/2020 7:43 PM CDT [...] this encounter Results * Cardiology Document Scan (01/08/2024 12:00 AM CDT) Anatomical Region Laterality Modality Other us Provider Scanning CV CARDIAC SERVICES PROCEDURES Edited Result - Final documented in this encounter Visit Diagnoses Not on filedocumented in this encounter Care Teams Telex Operator Relationship Specialty Start Date End Date Timothy Banks MD PCP - General 07/08/16 documented as of this encounter
--- OUTSIDE RECORDS SUMMARY | 2025-01-03 09:16 | XMS_ITS | Encounter Summary ---
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 Never 12/14/2024 Q2: How many drinks containi ng alcohol do you have on a typical day when you are drinking? Patient does not drink Q3: How often do you have si x or more drinks on one occasion? Never 12/14/2024 Overall Financial Resource Strain (CARDIA) Answe r Date Recorded How hard is it for you to pa y for the very basics like food, housing, medical care, and heating? Not hard at all 12/14/2024 PHQ-2 Answer Date Recorded Patient Health Questionnaire-2 Score 0 09/23/2024 [facility] Occupat ional Health - Occupational Stress Questionnaire Answer Date Recorded Do you feel stress - tense, restless, nervous, or anxious, or unable to sleep at night because your mind is troubled all the time - these days? Not at all 12/14/2024 Hunger Vital Sign Answer Date Recorded Within the past 12 months, y ou worried that your food would run out before you got the money to buy more. Never true 12/15/19 25 Within the past 12 months, t he food you bought just didn't last and you didn't have money to get more. Never true 12/14/2024 PRAPARE - Transportation Answer Date Re corded In the past 12 months, has l ack of transportation kept you from medical appointments or from getting medications? No 09/2024 In the past 12 months, has l ack of transportation kept you from meetings, work, or from getting things needed for daily living? No 12/14/2024 Housing Stability Vital Sign Answer Kodi e Recorded In the last 12 months, was t here a time when you were not able to pay the mortgage or rent on time? No 12/14/2024 In the past 12 months, how m any times have you moved where you were living? 0 12/14/2024 At any time in the past 12 m [facility], were you homeless or living in a long-term (including now)? No 12/14/2024 Sex and Gender Information Value Date Recorded Sex Assigned at Male 03/05/2024 8:04 AM INTERACTIVE MEDIA MARKETING STRATEGIST Legal Sex Male 6:32 PM INTERACTIVE MEDIA MARKETING STRATEGIST Gender Identity Male 03/05/2024 8:04 AM INTERACTIVE MEDIA MARKETING STRATEGIST Sexual Orientation Straight 03/05/2024 8: 04 AM INTERACTIVE MEDIA MARKETING STRATEGIST documented as of this encounter Functional Status * Is person deaf or have serious hearing difficulty? Answer Date of Assessment Author No 12/14/2024 5:45 AM CDT Oxana Rajan RN * Is person blind or have serious difficulty seeing? Answer Date of Assessment Author No 12/14/2024 5:45 AM CDT Oxana Rajan RN * Does person have serious difficulty walking/climbing stairs? Answer Date of Assessment Author Yes 12/14/2024 5:45 AM CDT Oxana Rajan RN * Does person have difficulty dressing/bathing? Answer Date of Assessment Author No 12/14/2024 5:45 AM CDT Oxana Rajan RN * Does person have difficulty doing errands alone? Answer Date of Assessment Author Yes 12/14/2024 5:45 AM CDT Oxana Rajan RN documented as of this encounter Mental Status * Does person have difficulty concentrating/remembering/making decisions? Answer Entry Date Author No 12/14/2024 5:45 AM CDT Oxana Rajan RN documented in this encounter Plan of Treatment Upcoming Encounters Date Type Department Care Team (Latest Contact Info) Description 01/06/2025 8:30 AM CDT Hospital Encounter [facility] [address] [place] [address] Francisco Peraza MD [id number] [place] [address] 01/07/2025 9:30 AM CDT Hospital Encounter [facility] [address] [place] [address] Francisco Peraza MD [id number] [place] [address] 01/08/2025 9:30 AM CDT Hospital Encounter [facility] [address] [place] [address] Francisco Peraza MD [id number] [place] [address] 01/09/2025 9:30 AM CDT Appointment [facility] [address] [place] [address] Francisco Peraza MD [id number] [place] [address] 01/10/2025 9:00 AM CDT Appointment [facility] [address] [place] [address] Francisco Peraza MD [id number] [place] [address] 02/03/2025 9:30 AM CDT Appointment [address] [address] 02/04/2025 9:30 AM CDT Appointment [address] [address] 02/05/2025 9:00 AM CDT Appointment [address] [address] 02/05/2025 11:15 AM CDT Hospital Encounter [facility] [address] [place] [phone] Olivia Maldonado MD [address] [place] [address] [address] [place] [phone] Surgery General 02/05/2025 11:15 AM CDT - 02/05/2025 12:00 PM CDT Surgery [facility] [address] [place] [phone] Olivia Maldonado MD [address] [place] [address] [address] [place] [phone] COLONOSCOPY SCREEN 02/06/2025 9:30 AM CDT Appointment [address] [address] 02/07/2025 9:30 AM CDT Appointment [address] [address] 03/07/2025 2:20 PM INTERACTIVE MEDIA MARKETING STRATEGIST Office Visit [facility] - Cardiology [address] [facility], [facility] [address] [place] [address] Kaushal Archer MD [address] [place] [phone] Scheduled Procedures Name Priority Associated Diagnoses Date/Ti me COLONOSCOPY SCREEN Diverticulitis 02/05/2025 11:15 AM CDT documented as of this encounter Goals Goal Patient Goal Type Associated Problems Recent Progress Patient-Stated? 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
--- OUTSIDE RECORDS SUMMARY | 2025-01-03 09:16 | XMS_ITS | Encounter Summary ---
Author Organization [facility] Address [address] [place] [address] Care Team Providers Care Supervisor Electronics Processing Name Role Phone Timothy Banks MD Primary Care Provider [phone] Cindy Garcia MD Unavailable Encounter Details Date Type Department Care Team (Late st Contact Info) Description 02/12/2024 Lab Requisition [facility] - Pathology Lab [address] [place] [address] Rommel Dinh MD [address] [facility] [address] [place] [address] Decreased white blood cell count, unspecified Social History Tobacco Use Types Packs/Day Years Used Date Smoking Tobacco: Never Assessed Sex and Gender Information Value Date Recorded Sex Assigned at Male 03/05/2024 8:04 AM SUSTAINABILITY CONSULTANT Legal Sex Male 6:32 PM SUSTAINABILITY CONSULTANT Gender Identity Male 03/05/2024 8:04 AM SUSTAINABILITY CONSULTANT Sexual Orientation Straight 03/05/2024 8: 04 AM SUSTAINABILITY CONSULTANT documented as of this encounter Plan of Treatment Upcoming Encounters Date Type Department Care Team (Latest Contact Info) Description 01/06/2025 8:30 AM CDT Hospital Encounter [facility] [address] [place] [address] Francisco Peraza MD [id number] [place] [address] 01/07/2025 9:30 AM CDT Hospital Encounter [facility] [address] [place] [address] Francisco Peraza MD [id number] [place] [address] 01/08/2025 9:30 AM CDT Hospital Encounter [facility] [address] [place] [address] Francisco Peraza MD [address] [place] [address] 01/09/2025 9:30 AM CDT Appointment [facility] [address] [place] [address] Francisco Peraza MD [address] [place] [address] 01/10/2025 9:00 AM CDT Appointment [facility] [address] [place] [address] Francisco Peraza MD [address] [place] [address] 02/03/2025 9:30 AM CDT Appointment [facility] [address] [place] [address] 02/04/2025 9:30 AM CDT Appointment [facility] [address] [place] [address] 02/05/2025 9:00 AM CDT Appointment [facility] [address] [place] [address] 02/05/2025 11:15 AM CDT Hospital Encounter [facility] [address] [place] [address] Olivia Maldonado MD [address] [place] [address] [facility] [place] [address] Surgery General 02/05/2025 11:15 AM CDT - 02/05/2025 12:00 PM CDT Surgery [facility] [address] [place] [address] Olivia Maldonado MD [address] [facility] [place] [address] COLONOSCOPY SCREEN 02/06/2025 9:30 AM CDT Appointment [facility] [address] [place] [address] 02/07/2025 9:30 AM CDT Appointment [facility] [address] [place] [address] 03/07/2025 2:20 PM SUSTAINABILITY CONSULTANT Office Visit [facility] - Cardiology [address] [facility], [facility] [address] [place] [phone] Kaushal Archer MD [address] [place] [phone] Scheduled Procedures Name Priority Associated Diagnoses Date/Ti me COLONOSCOPY SCREEN Diverticulitis 02/05/2025 11:15 AM CDT documented as of this encounter Procedures Procedure Name Priority Date/Time Associated Diagnosis Comments FLOW CYTOMETRY BONE MARROW Routine 02/12/2024 9:20 AM SUSTAINABILITY CONSULTANT Decreased white blood cell count, unspecified documented in this encounter Results * FLOW CYTOMETRY BONE MARROW (02/12/2024 9:20 AM SUSTAINABILITY CONSULTANT) Case Report Flow Cytometry Case: [id number] Authorizing Provider: Rommel Dinh Collected: 02/12/2024 09:20 AM MD Luke Ordering Location: [facility] - Received: 02/12/2024 12:12 PM Pathology Lab Pathologist: Daniela Bronson MD Specimen: Bone Marrow 02/12/2024 3:44 PM SUSTAINABILITY CONSULTANT [facility] Final Diagnosis Bone marrow, [...] on 02/12/2024 at 1539. 02/12/2024 3:44 PM [facility] at 1544 SUSTAINABILITY CONSULTANT Flow Cytometry Interpretation Viability: 97% B-cells: 6% [...] flow cytometry specimen has been reviewed for principal quality engineer purposes. Review the bone marrow aspirate smears reveals 20% blasts with only rare promyelocytes identified. Carolyn rods are not seen. 02/12/2024 3:44 PM [facility] Flow Cytometry Results Differential Result Comment Flow Cell Count /uL 20,700 Total Viability % 97.0 Lymphocytes % 12 Dim CD45 Region % 44 Monocytes % 1 Granulocytes % 42 02/12/2024 3:44 PM [facility] Reason for test Decreased white blood cell count, unspecified 02/12/2024 3:44 PM [facility] Client Specimen ID # [id number] 02/12/2024 3:44 PM [facility] Number of markers 29 were [...] CD56 A-20 Flow CD64 A-28 cyCD22 A-29 qsQB69t A-16 [place]+CD19+ A-17 Lambda+CD19+ A-24 Flow HLA-DR A-25 Flow MPO A-26 Flow TdT A-27 cyCD3 02/12/2024 3:44 PM [facility] Pathologist Location at [facility] 02/12/2024 3:44 PM [facility] Disclaimer Test performed at [facility], [address] [place] [address], [address]. *The established laboratory minimum viability is 70%. [...] high complexity clinical testing. 02/12/2024 3:44 PM [facility] Embedded Images 3:44 PM [facility] Pathology/Cytolo gy BONE MARROW SPECIMEN / Unknown 02/12/2024 9:20 AM SUSTAINABILITY CONSULTANT 02/12/2024 12:12 PM SUSTAINABILITY CONSULTANT Rommel Dinh MD LAB - PATHOLOGY/CYT OLOGY ORDERABLES Final Result [facility] [address] [place] [address]. [place] [address], [facility] [phone] documented in this encounter Visit Diagnoses Diagnosis Decreased white blood cell count, unspecified Diverticulitis Diverticulitis of colon (without mention of hemorrhage) documented in this encounter Additional Health Concerns Infection Onset Date Last Indicated Resolved Time COVID-19 Under Investigation 08/08/2024 08/08/2024 08/08/2024 2:07 PM CDT documented as of this encounter Care Teams Supervisor Electronics Processing Relationship Specialty Start Date End Date Timothy Banks MD [address] [place] [address] PCP - General 10/19/18 Cindy Garcia MD [address] [place] [address] Insurance Application Investigator/Oncologis t Hematology and Oncology 03/24/24 documented as of this encounter
--- OUTSIDE RECORDS SUMMARY | 2025-01-03 09:16 | XMS_ITS | Encounter Summary ---
Author Organization [facility] Address [address] [place] [address] Phone Care Team Providers Care Flat Surfacer Name Role Phone Timothy Banks MD Primary Care Provider Encounter Details Date Type Department Care Team (Latest Contact Info) Description 01/02/2024 Orders Only [facility]AT[facility] Scanning, Provider Social History Tobacco Use Types Packs/Day Years Used Date Smoking Tobacco: Never Smokeless Tobacco: Never Alcohol Use Standard Drinks/Week Comments Yes 0 (1 standard drink = 0.6 oz pur e alcohol) Sex and Gender Information Value Date Recorded Sex Assigned at Not on file Legal Sex Male 4:19 AM AIRCRAFT MECHANIC ELECTRICAL AND RADIO Gender Identity Male 01/12/2020 7:43 PM CDT Sexual Orientation Straight 01/12/2020 7: 43 PM CDT documented as of this encounter Plan of Treatment Upcoming Encounters Date Type Department Care Team (Latest Contact Info) Description 01/06/2025 Orders Only [facility] HEMATOLOGY Scanning, Provider documented as of this encounter Procedures Procedure Name Priority Date/Time Associated Diagnosis Comments SCAN - RADIOLOGY/IMAGING 01/02/2024 documented in this encounter Results * SCAN - RADIOLOGY/IMAGING (01/02/2024) Anatomical Region Laterality Modality Other us Provider Scanning Final Result documented in this encounter Visit Diagnoses Not on filedocumented in this encounter Care Teams Flat Surfacer Relationship Specialty Start Date End Date Timothy Banks MD PCP - General 07/08/16 documented as of this encounter
--- OUTSIDE RECORDS SUMMARY | 2025-01-03 09:16 | XMS_ITS | Encounter Summary ---
Author Organization [facility] Address [address] [facility] [place] [address] Care Team Providers Care District Supervisor Name Role Phone Timothy Banks MD Primary Care Provider [phone] Cindy Garcia MD Unavailable Encounter Details Date Type Department Care Team (Late st Contact Info) Description 09/28/2023 Lab Requisition [facility]erm[facility] Lab [address] [facility] [place] [phone] Timothy Banks MD [address] [place] [address] Social History Tobacco Use Types Packs/Day Years Used Date Smoking Tobacco: Never Assessed Sex and Gender Information Value Date Recorded Sex Assigned at Male 03/05/2024 8:04 AM TERRY CLOTH CUTTER HAND Legal Sex Male 6:32 PM TERRY CLOTH CUTTER HAND Gender Identity Male 03/05/2024 8:04 AM TERRY CLOTH CUTTER HAND Sexual Orientation Straight 03/05/2024 8: 04 AM TERRY CLOTH CUTTER HAND documented as of this encounter Plan of Treatment Upcoming Encounters Date Type Department Care Team (Latest Contact Info) Description 01/06/2025 8:[address] [facility] Hospital Encounter [facility] [address] [place] [address] Francisco Peraza MD [address] [place] [address] 01/07/2025 9:30 AM CDT Hospital Encounter [facility] [address] [place] [address] Francisco Peraza MD [address] [place] [address] 01/08/2025 9:30 AM CDT Hospital Encounter [facility] [address] [place] [address] Francisco Peraza MD [address] [place] [address] 01/09/2025 9:30 AM CDT Appointment [facility] [address] [place] [address] Francisco Peraza MD [address] [place] [address] 01/10/2025 9:00 AM CDT Appointment [facility] [address] [place] [address] Francisco Peraza MD [address] [place] [address] 02/03/2025 9:30 AM CDT Appointment [facility] [address] [place] [address] 02/04/2025 9:30 AM CDT Appointment [facility] [address] [place] [address] 02/05/2025 9:00 AM CDT Appointment [facility] [address] [place] [address] 02/05/2025 11:15 AM CDT Hospital Encounter [facility] [address] [place] [phone] Olivia Maldonado MD [address] [facility] [place] [place] [address] Surgery General 02/05/2025 11:15 AM CDT - 02/05/2025 12:00 PM CDT Surgery [facility] [address] [place] [address] Olivia Maldonado MD [address] [facility] 3L [place] [address] COLONOSCOPY SCREEN 02/06/2025 9:30 AM CDT Appointment [facility] [address] [place] [address] 02/07/2025 9:30 AM CDT Appointment [facility] [address] [place] [address] 03/07/2025 2:20 PM TERRY CLOTH CUTTER HAND Office Visit [facility] - Cardiology [address] [facility], [facility] [address] [place] [address] Kaushal Archer MD [address] [place] [address] Scheduled Procedures Name Priority Associated Diagnoses Date/Ti me COLONOSCOPY SCREEN Diverticulitis 02/05/2025 11:15 AM CDT documented as of this encounter Procedures Procedure Name Priority Date/Time Associated Diagnosis Comments DERMATOPATHOLOGY Routine 09/27/2023 12:0 0 AM CDT documented in this encounter Results * DERMATOPATHOLOGY (09/27/2023 12:00 AM CDT) Case Report Dermatopathology Report Case: [id number] Authorizing Provider: Timothy Banks MD Collected: 09/27/2023 12:00 AM Ordering Location: [facility] - Received: 09/28/2023 10:46 [...] MARGIN 4 12:35 PM T DERMATOPATHOLOGY LABORATORY at 1235 CDT Clinical History A-B: Changing lesion 4 12:35 PM T DERMATOPATHOLOGY LABORATORY Gross Description Specimen A: Received is one formalin filled container labeled with the patient's name and designated left neck. The specimen consists of a shave biopsy measuring [id number] mm. Jar 0. Specimen B: Received is [...] 2. Jar 0. 4 12:[address] [facility] DERMATOPATHOLOGY LABORATORY Microscopic Description Specimen A. [...] determined by the Dermatopathology Laboratory at [facility], directed by Dr. Randall Pringle. These tests need not be, and therefore are not, approved by the [place] Food and Drug Administration. The tests are used for clinical purposes. Billing Codes Specimen Charges Stain Charges 94674 62686 1 1 4 12:35 PM T DERMATOPATHOLOGY LABORATORY Embedded Images 4 12:35 PM CDT DERMATOPATHOLOGY LABORATORY Pathology/Cytology TISSUE SPECIMEN FROM SKIN / Unknown 09/27/2023 09/28/2023 10:46 AM CDT Miscellaneous samples (specimen) TISSUE SPECIMEN FROM SKIN / Unknown 09/27/2023 09/28/2023 10:46 AM CDT Timothy Banks MD LAB - PATHOLOGY/CYTOLOGY CHELI MONREAL Final Result DERMATOPATHOLOGY LABORATORY [facility] Department of Dermatology [address], [address] [phone] documented in this encounter Visit Diagnoses Not on filedocumented in this encounter Additional Health Concerns Infection Onset Date Last Indicated Resolved Time COVID-19 Under Investigation 08/08/2024 08/08/2024 08/08/2024 2:07 PM CDT documented as of this encounter Care Teams District Supervisor Relationship Specialty Start Date End Date Timothy Banks MD [address] [place] [address] PCP - General 10/19/18 Cindy Garcia MD [address] [place] [address] Line Tender/Oncologis t Hematology and Oncology 03/24/24 documented as of this encounter
--- OUTSIDE RECORDS SUMMARY | 2025-01-03 09:16 | XMS_ITS | Encounter Summary ---
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 No 12/14/2024 Sex and Gender Information Value Date Recorded Sex Assigned at Male 03/05/2024 8:04 AM TEAM ASSISTANT Legal Sex Male 6:32 PM TEAM ASSISTANT Gender Identity Male 03/05/2024 8:04 AM TEAM ASSISTANT Sexual Orientation Straight 03/05/2024 8: 04 AM TEAM ASSISTANT documented as of this encounter Functional [...] Author Yes 12/14/2024 5:45 AM CDT Oxana Matthew RN * Does person have difficulty dressing/bathing? [...] Description 01/06/2025 8:30 AM CDT Hospital Encounter [facility] [address] [place] [address] Francisco Peraza MD [address] [place] [address] 01/07/2025 9:30 AM CDT Hospital Encounter [facility] [address] [place] [address] Francisco Peraza MD [address] [place] [address] 01/08/2025 9:30 AM CDT Hospital Encounter [facility] [address] [place] [address] Francisco Peraza MD [address] [place] [address] 01/09/2025 9:[address] [facility] [address] [place] [address] Francisco Peraza MD [address] [place] [address] 01/10/2025 9:[address] [facility] [address] [place] [address] Francisco Peraza MD [address] [place] [address] 02/03/2025 9:30 AM CDT Appointment [address] [address] 02/04/2025 9:30 AM CDT Appointment [address] [address] 02/05/2025 9:00 AM CDT Appointment [address] [address] 02/05/2025 11:15 AM CDT Hospital Encounter [facility] [address] [place] [address] Olivia Maldonado MD [address] [place] [address] [address] [place] [address] Surgery General 02/05/2025 11:15 AM CDT - 02/05/2025 12:[address] [facility] [address] [place] [phone] Olivia Maldonado MD [address] [place] [address] 3 [place] [address] COLONOSCOPY SCREEN 02/06/2025 9:30 AM CDT Appointment [address] [address] 02/07/2025 9:30 AM CDT Appointment [address] [address] 03/07/2025 2:20 PM TEAM ASSISTANT Office Visit [facility] - Cardiology [address] [facility], [facility] [address] [place] [address] Kaushal Archer MD [address] [place] [address] Scheduled Procedures Name Priority Associated Diagnoses Date/Ti [...] hemorrhage) documented in this encounter Care Teams Medical Record Administrator Relationship Specialty Start Date End Date Timothy Banks MD [address] [place] [address] PCP - General 10/19/18 Cindy Garcia MD [address] [place] [address] Php Magento Developer/Oncologis t Hematology and Oncology 03/24/24 documented as of this encounter
--- OUTSIDE RECORDS SUMMARY | 2025-01-03 09:16 | XMS_ITS | Encounter Summary ---
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) Social History Tobacco Use Types Packs/Day Years Used Date Smoking Tobacco: Never Smokeless Tobacco: Never Alcohol Use Standard Drinks/Week Comments Yes 0 (1 standard drink = 0.6 oz pur e alcohol) Very Ocasionally Sex and Gender Information Value Date Recorded Sex Assigned at Male 04/05/2024 3:07 PM ENGRAVER SEALS Legal Sex Male 10:53 AM CDT Gender Identity Male 04/05/2024 3:07 PM ENGRAVER SEALS Sexual Orientation Not on file documented as of this encounter Plan of Treatment Not on file documented as of this encounter Visit Diagnoses Diagnosis 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 [address] PCP - General Family Practice 02/01/24 documented as of this encounter
--- OUTSIDE RECORDS SUMMARY | 2025-01-03 09:16 | XMS_ITS | Clinical Summary ---
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) 12/30/2024 Orders Only [facility] [place] Oncology and Hematology - [place] [address] [place] [address] Frank Singh MD 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) 12/24/2024 External Device Data STL ABSTRACTION Provider, Abstract 12/24/2024 External Device Data STL ABSTRACTION Provider, Abstract 12/24/2024 Orders Only [facility] [place] Oncology and Hematology - Charles [address] [place] [address] Frank Singh MD 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) 12/23/2024 Orders Only [facility] [place] Oncology and Hematology - Charles [address] [place] [address] Frank Singh MD 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) 12/17/2024 Orders Only [facility] [place] Oncology and Hematology - Charles [address] [place] [address] Frank Singh MD 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) 12/16/2024 Orders Only [facility] [place] Oncology and Hematology - Charles [address] [place] [address] Frank Singh MD 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) 12/10/2024 Orders Only [facility] [place] Oncology and Hematology - Charles [address] [place] [address] Frank Singh MD 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) 12/09/2024 Orders Only [facility] [place] Oncology and Hematology - Charles [address] [place] [address] Frank Singh MD 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) 12/03/2024 Orders Only [facility] [place] Oncology and Hematology - Charles [address] [place] [address] Frank Singh MD 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) 12/02/2024 Orders Only [facility] [place] Oncology and Hematology - Charles [address] [place] [address] Frnak Singh MD 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) 11/28/2024 Orders Only [facility] [place] Oncology and Hematology - Charles [address] Frank Singh MD 11/26/2024 External Device Data STL ABSTRACTION Provider, Abstract 11/26/2024 External Device Data STL ABSTRACTION Provider, Abstract 11/26/2024 Orders Only [facility] [place] Oncology and Hematology - Charles [address] Frank Singh MD 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) 11/25/2024 Orders Only [facility] [place] Oncology and Hematology - Charles [address] Frank Singh MD 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) 11/19/2024 Orders Only [facility] [place] Oncology and Hematology - Charles [address] Frank Singh MD 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) 11/18/2024 Orders Only [facility] [place] Oncology and Hematology - Charles [address] Frank Singh MD 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) 11/13/2024 External Device Data STL ABSTRACTION Provider, Abstract 11/12/2024 Orders Only [facility] [place] Oncology and Hematology - Charles [address] Frank Singh MD 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) 11/11/2024 Orders Only [facility] [place] Oncology and Hematology - Charles C[address] Frank Singh MD 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) 11/05/2024 Orders Only [facility] [place] Oncology and Hematology - [place] C[address] Frank Singh MD 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) 11/04/2024 Orders Only [facility] [place] Oncology and Hematology - Charles [address] [place] [address] Frank Singh MD 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) 10/29/2024 Orders Only [facility] [place] Oncology and Hematology - Charles [address] [place] [phone] Frank Singh MD 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) 10/28/2024 Orders Only [facility] [place] Oncology and Hematology - Charles [address] [place] [address] Frank Singh MD 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) 10/23/2024 External Device Data STL ABSTRACTION Provider, Abstract 10/22/2024 External Device Data STL ABSTRACTION Provider, Abstract 10/22/2024 Orders Only [facility] [place] Oncology and Hematology - Charles [address] [place] [address] Frank Singh MD 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) 10/21/2024 Orders Only [facility] [place] Oncology and Hematology - Charles [address] [place] [address] Frank Singh MD 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) 10/15/2024 Orders Only [facility] [place] Oncology and Hematology - Charles [address] [place] [address] Frank Singh MD 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) 10/14/2024 Orders Only [facility] [place] Oncology and Hematology - [place] [address] [place] [address] Frank Singh MD 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) 10/08/2024 Orders Only [facility] [place] Oncology and Hematology - Charles [address] [place] [address] Frank Singh MD 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) 10/07/2024 Orders Only [facility] [place] [facility] Oncology and [facility] [address] [place] [address] Frank Singh MD Acute myeloid leukemia not [...] Sex Assigned at Male 04/05/2024 3:07 PM BREAD PANNER Legal Sex Male 10:53 AM CDT Gender Identity Male 04/05/2024 3:07 PM BREAD PANNER Sexual Orientation Not on file Last Filed [...] of 2) 02/29/2020 01/04/2020 INFLUENZA VACCINE (#1) 2024 1, 01/09/2020, 01/04/2020, Additional history exists COVID-19 Vaccine (2 - 2024-2 6 season) 2024 04/14/2021 DTAP/TDAP/TD VACCINES (2 - T d or Tdap) 09/17/2028 09/17/2018 PNEUMOCOCCAL VACCINE 50+ YEARS Completed 09/17/2018 , 08/27/2015 Procedures Procedure Name Priority Date/Time Associated Diagnosis Comments BASIC METABOLIC PANEL Routine 12/02/2024 10:57 AM CDT CBC WITH AUTODIFFERENTIAL Routine 2024 10:42 AM CDT BASIC METABOLIC PANEL Routine 11/26/2024 9:51 AM CDT BASIC METABOLIC PANEL Routine 11/18/2024 12:23 PM CDT CBC WITH AUTODIFFERENTIAL Routine 2024 12:17 PM CDT from Last 3 Months Results * BASIC METABOLIC PANEL (12/02/2024 10:57 AM CDT) Only the most recent of3 resultswithin the time period is included. Blood Frank Singh MD CHEMISTRY ORDERABLES Final Resu lt * CBC WITH AUTODIFFERENTIAL (12/02/2024 10:42 AM CDT) Only the most recent of2 resultswithin the time period is included. Blood us Frank Singh MD HEMATOLOGY ORDERABLES Final Res ult from Last 3 Months Insurance [address] [place] [id number] [employer] Care Teams Export Documents Clerk Relationship Specialty Start Date End Date Timothy Banks MD [address] [place] [address] PCP - General Family Practice 02/01/24
--- OUTSIDE RECORDS SUMMARY | 2025-01-03 09:16 | XMS_ITS | Encounter Summary ---
Author Organization [facility] Address [address] [place] [address] Care Team Providers Care Toggle Press Folder And Feeder Name Role Phone Timothy Banks MD Primary Care Provider [phone] Cindy Garcia MD Unavailable Encounter Details Date Type Department Care Team (Late st Contact Info) Description 02/13/2024 Lab Requisition [facility] - Pathology Lab [address] [place] [address] Rommel Dinh MD [address] [facility] [address] [place] [address] Illness, unspecified Social History Tobacco Use Types Packs/Day Years Used Date Smoking Tobacco: Never Assessed Sex and Gender Information Value Date Recorded Sex Assigned at Male 03/05/2024 8:04 AM TALENT REP Legal Sex Male 6:32 PM TALENT REP Gender Identity Male 03/05/2024 8:04 AM TALENT REP Sexual Orientation Straight 03/05/2024 8: 04 AM TALENT REP documented as of this encounter Plan of Treatment Upcoming Encounters Date Type Department Care Team (Latest Contact Info) Description 01/06/2025 8:30 AM CDT Hospital Encounter [facility] [address] [place] [address] Francisco Peraza MD [address] [place] [address] 01/07/2025 9:30 AM CDT Hospital Encounter [facility] [address] [place] [address] Francisco Peraza MD [address] [place] [address] 01/08/2025 9:30 AM CDT Hospital Encounter [facility] [address] [place] [address] Francisco Peraza MD [address] [place] [address] 01/09/2025 9:30 AM CDT Appointment [facility] [address] [place] [address] Francisco Peraza MD [address] [place] [address] 01/10/2025 9:00 AM CDT Appointment [facility] [address] [place] [address] Francisco Peraza MD [address] [place] [address] 02/03/2025 9:30 AM CDT Appointment [facility] [address] [place] [address] 02/04/2025 9:30 AM CDT Appointment [facility] [address] [place] [address] 02/05/2025 9:00 AM CDT Appointment [facility] [address] [place] [address] 02/05/2025 11:15 AM CDT Hospital Encounter [facility] END[facility] [address] [place] [address] Olivia Maldonado MD [address] [facility] [place] [address] Surgery General 02/05/2025 11:15 AM CDT - 02/05/2025 12:00 PM CDT Surgery [facility] [address] [place] [address] Olivia Maldonado MD [address] [facility] [address]L [place] [address] COLONOSCOPY SCREEN 02/06/2025 9:30 AM CDT Appointment [facility] [address] [place] [address] 02/07/2025 9:30 AM CDT Appointment [facility] [address] [place] [address] 03/07/2025 2:20 PM TALENT REP Office Visit [facility] - Cardiology [address] [facility], [email or web address] [address] [place] [address] Kaushal Archer MD [address] [place] [address] Scheduled Procedures Name Priority Associated Diagnoses Date/Ti me COLONOSCOPY SCREEN Diverticulitis 02/05/2025 11:15 AM CDT documented as of this encounter Procedures Procedure Name Priority Date/Time Associated Diagnosis Comments BONE MARROW BIOPSY (STL) Routine 02/12/2024 9:20 AM TALENT REP Illness, unspecified documented in this encounter Results * BONE MARROW BIOPSY (STL) (02/12/2024 9:20 AM TALENT REP) Case Report Bone Marrow Patholog y Report Case: [id number] Authorizing Provider: Rommel Dinh Collected: 02/12/2024 09:20 AM MD Luke Ordering Location: [facility] - Received: 02/13/2024 12:34 PM Pathology Lab Pathologist: Daniela Bronson MD Specimens: A) - Bone Marrow Clot B) - Bone Marrow Core 02/14/2024 1:43 PM TALENT REP [facility] Final Diagnosis Bone marrow, iliac crest, core biopsy, clot section, and aspirate: - Increased myeloblasts (up to 30% by morphology) with mild trilineage dyspoiesis involving a hypercellular bone marrow (70-80% cellular), see comment - Absent iron stores - 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 02/14/2024 1:43 PM [facility] Peripheral Smear Description The patient's [...] including numerous giant platelets. 02/14/2024 1:43 PM [facility] Bone Marrow Aspirate Differential count [...] stain): no ring sideroblasts. 02/14/2024 1:43 PM [facility] Bone Marrow Core Biopsy and [...] similar to core biopsy. 02/14/2024 1:43 PM [facility] Flow Cytometry Summary Flow cytometry identified 35% myeloblasts and no diagnostic immunophenotypic evidence of monoclonal B-cells, an aberrant T-cell population, or plasma cell neoplasm ([id number]). 02/14/2024 1:43 PM [facility] Clinical History Chronic leukopenia 02/14/2024 1:43 PM [facility] Materials Received Received are 19 slide(s) and 3 blocks labeled [id number] along with a copy of the outside pathology report. [place] [address]. All original materials are returned to the referring institution, along with a copy of our final report. 02/14/2024 1:43 PM [facility] Microscopic Description CD34 immunohistochemistry stains [...] sections reveal absent stores. 02/14/2024 1:43 PM [facility] Pathologist Location at [facility] 02/14/2024 1:43 PM [facility] Disclaimer The performance characteristics of all immunohistochemical and indirect immunofluorescence stains (if any) cited in this report were determined by the Histopathology Laboratory of [facility]. Some of these tests were developed by [...] the attending (teaching) pathologist. 02/14/2024 1:43 PM [facility] Embedded Images 02/14/2024 1:43 PM [facility] Pathology/Cytology BONE MARROW SPECIMEN / Unknown 02/12/2024 9:20 AM TALENT REP 02/13/2024 12:34 PM TALENT REP Miscellaneous samples (specimen) BONE MARROW SPECIMEN / Unknown 02/12/2024 9:20 AM TALENT REP 02/13/2024 12:34 PM TALENT REP Rommel Dinh MD LAB - PATHOLOGY/CYT OLOGY ORDERABLES Final Result [facility] [address] [phone] documented in this encounter Visit Diagnoses Diagnosis Illness, unspecified Diverticulitis Diverticulitis of colon (without mention of hemorrhage) documented in this encounter Additional Health Concerns Infection Onset Date Last Indicated Resolved Time COVID-19 Under Investigation 08/08/2024 08/08/2024 08/08/2024 2:07 PM CDT documented as of this encounter Care Teams Toggle Press Folder And Feeder Relationship Specialty Start Date End Date Timothy Banks MD [address] [place] [address] PCP - General 10/19/18 Cindy Garcia MD [address] [place] [address] Toy Consultant/Oncologis t Hematology and Oncology 03/24/24 documented as of this encounter
--- OUTSIDE RECORDS SUMMARY | 2025-01-03 09:16 | XMS_ITS | Encounter Summary ---
Author Organization [facility] Address [address] [place] [address] Phone Care Team Providers Care Chief Deputy Coroner Name Role Phone Timothy Banks MD Primary Care Provider Encounter Details Date Type Department Care Team (Late st Contact Info) Description 01/25/2024 Telephone [facility] Medicine Cardiology [address] [facility] Advanced Medicine 8th [place] [address] [place] [address] Alberto Gallegos MD [address] [facility] [address] [place] [address] Social History Tobacco Use Types Packs/Day Years Used Date Smoking Tobacco: Never Smokeless Tobacco: Never Alcohol Use Standard Drinks/Week Comments Yes 0 (1 standard drink = 0.6 oz pur e alcohol) Sex and Gender Information Value Date Recorded Sex Assigned at Not on file Legal Sex Male 4:19 AM DIRECTOR FINANCIAL SYSTEMS Gender Identity Male 01/12/2020 7:43 PM CDT Sexual Orientation Straight 01/12/2020 7: 43 PM CDT documented as of this encounter Plan of Treatment Upcoming Encounters Date Type Department Care Team (Latest Contact Info) Description 01/06/2025 Orders Only [facility] HEMATOLOGY Scanning, Provider documented as of this encounter Visit Diagnoses Not on filedocumented in this encounter Care Teams Chief Deputy Coroner Relationship Specialty Start Date End Date Timothy Banks MD PCP - General 07/08/16 documented as of this encounter
--- OUTSIDE RECORDS SUMMARY | 2025-01-03 09:16 | XMS_ITS | Encounter Summary ---
Author Organization [facility] Address [address] [facility] [place] [address] Care Team Providers Care Machinery Mechanic Name Role Phone Timothy Banks MD Primary Care Provider [phone] Cindy Garcia MD Unavailable Encounter Details Date Type Department Care Team (Late st Contact Info) Description 11/04/2024 Results Follow-Up [facility] [address] [place] [phone] Cindy Garcia MD [address] [place] [address] Social History Tobacco Use Types [...] Recorded Patient Health Questionnaire-2 Score 0 09/23/2024 [facility] of Occupat ional Health - Occupational Stress [...] time in the past 12 m [facility], were you homeless or living in a half-way (including now)? No 03/13/2024 Sex and Gender Information Value Date Recorded Sex Assigned at Male 03/05/2024 8:04 AM ASSISTANT PROFESSOR NURSE EDUCATION Legal Sex Male 6:32 PM ASSISTANT PROFESSOR NURSE EDUCATION Gender Identity Male 03/05/2024 8:04 AM ASSISTANT PROFESSOR NURSE EDUCATION Sexual Orientation Straight 03/05/2024 8: 04 AM ASSISTANT PROFESSOR NURSE EDUCATION documented as of this encounter Functional Status [...] Description 01/06/2025 8:30 AM CDT Hospital Encounter [facility] [address] [place] [address] Francisco Peraza MD [address] [place] [id number] 01/07/2025 9:30 AM CDT Hospital Encounter [facility] [address] [place] [address] Francisco Peraza MD [address] [place] [address] 01/08/2025 9:30 AM CDT Hospital Encounter [facility] [address] [place] [address] Francisco Peraza MD [address] [place] [address] 01/09/2025 9:30 AM CDT Appointment [facility] [address] [place] [address] Francisco Peraza MD [address] [place] [address] 01/10/2025 9:00 AM CDT Appointment [facility] [address] [place] [address] Francisco Peraza MD [address] [place] [address] 02/03/2025 9:30 AM CDT Appointment [facility] [address] [place] [address] 02/04/2025 9:30 AM CDT Appointment [facility] [address] [place] [address] 02/05/2025 9:00 AM CDT Appointment [facility] [address] [place] [address] 02/05/2025 11:15 AM CDT Hospital Encounter [facility] [address] [place] [phone] Olivia Maldonado MD [address] [facility] [address] [place] [address] Surgery General 02/05/2025 11:15 AM CDT - 02/05/2025 12:00 PM CDT Surgery [facility] [address] [place] [address] Olivia Maldonado MD [address] [facility] [address] [place] [address] COLONOSCOPY SCREEN 02/06/2025 9:30 AM CDT Appointment [facility] [address] [place] [address] 02/07/2025 9:30 AM CDT Appointment [facility] [address] [place] [address] 03/07/2025 2:20 PM ASSISTANT PROFESSOR NURSE EDUCATION Office Visit [facility] - Cardiology [address] [facility] [address] [place] [address] Kaushal Archer MD [address] [place] [phone] Scheduled Procedures Name Priority Associated Diagnoses Date/Ti me COLONOSCOPY SCREEN Diverticulitis 02/05/2025 11:15 AM CDT documented as of this encounter Visit Diagnoses Not on filedocumented in this encounter Care Teams Machinery Mechanic Relationship Specialty Start Date End Date Timothy Banks MD [address] [place] [address] PCP - General 10/19/18 Cindy Garcia MD [address] [place] [address] Resort Keeper/Oncologis t Hematology and Oncology 03/24/24 documented as of this encounter
--- OUTSIDE RECORDS SUMMARY | 2025-01-03 09:16 | XMS_ITS | Encounter Summary ---
Author Organization [facility] [employer] [facility] Address [address] [place] [address] Care Team Providers Care Grocery Buyer Name Role Phone Timothy Banks MD Primary Care Provider [phone] Encounter Details Date Type Department Care Team (Late st Contact Info) Description 12/31/2024 Orders Only [facility] Oncology and Hematology - [place] [address] [place] [address] [address] [place] [address] Frank Singh MD [address] 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) Social History Tobacco Use Types Packs/Day Years Used Date Smoking Tobacco: Never Smokeless Tobacco: Never Alcohol Use Standard Drinks/Week Comments Yes 0 (1 standard drink = 0.6 oz pur e alcohol) Very Ocasionally Sex and Gender Information Value Date Recorded Sex Assigned at Male 04/05/2024 3:07 PM APRICOT WASHER Legal Sex Male 10:53 AM CDT Gender Identity Male 04/05/2024 3:07 PM APRICOT WASHER Sexual Orientation Not on file documented as of this encounter Plan of Treatment Not on file documented as of this encounter Visit Diagnoses Diagnosis 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 [address] PCP - General Family Practice 02/01/24 documented as of this encounter
--- OUTSIDE RECORDS SUMMARY | 2025-01-03 09:16 | XMS_ITS | Encounter Summary ---
Author Organization [facility] Healthcare Address [address] [place] [address] Care Team Providers Care Detective Investigator Name Role Phone Timothy Banks MD Primary Care Provider [phone] Encounter Details Date Type Department Care Team (Late st Contact Info) Description 06/13/2017 Orders Only [facility] Health Information Management [address] [place] [id number] Scanning, Provider Social History Tobacco Use Types Packs/Day Years Used Date Smoking Tobacco: Never Smokeless Tobacco: Never Alcohol Use Standard Drinks/Week Comments Yes 0 (1 standard drink = 0.6 oz pur e alcohol) Sex and Gender Information Value Date Recorded Sex Assigned at Not on file Legal Sex Male 4:19 AM ADMINISTRATOR PESTICIDE Gender Identity Male 01/12/2020 7:43 PM CDT Sexual Orientation Straight 01/12/2020 7: 43 PM CDT documented as of this encounter Plan of Treatment Upcoming Encounters Date Type Department Care Team (Latest Contact Info) Description 01/06/2025 Orders Only [facility] HEMATOLOGY Scanning, Provider documented as of this encounter Procedures Procedure Name Priority Date/Time Associated Diagnosis Comments SCAN - LABS 06/13/2017 documented in this encounter Results * SCAN - LABS (06/13/2017) Provider Scanning Final Result documented in this encounter Visit Diagnoses Not on filedocumented in this encounter Care Teams Detective Investigator Relationship Specialty Start Date End Date Timothy Banks MD PCP - General 07/08/16 documented as of this encounter
--- OUTSIDE RECORDS SUMMARY | 2025-01-03 09:16 | XMS_ITS | Encounter Summary ---
Author Organization [facility] Healthcare Address [address] [place] [address] Care Team Providers Care Emergency Man Name Role Phone Timothy Banks MD Primary Care Provider [phone] Encounter Details Date Type Department Care Team (Late st Contact Info) Description 10/07/2022 Orders Only [facility] Health Information Management [address] [place] [id number] Scanning, Provider Social History Tobacco Use Types Packs/Day Years Used Date Smoking Tobacco: Never Smokeless Tobacco: Never Alcohol Use Standard Drinks/Week Comments Yes 0 (1 standard drink = 0.6 oz pur e alcohol) Sex and Gender Information Value Date Recorded Sex Assigned at Not on file Legal Sex Male 4:19 AM FLY RAISER LOCKSTITCH Gender Identity Male 01/12/2020 7:43 PM CDT Sexual Orientation Straight 01/12/2020 7: 43 PM CDT documented as of this encounter Plan of Treatment Upcoming Encounters Date Type Department Care Team (Latest Contact Info) Description 01/06/2025 Orders Only [facility] HEMATOLOGY Scanning, Provider documented as of this encounter Procedures Procedure Name Priority Date/Time Associated Diagnosis Comments SCAN - LABS 10/07/2022 CARDIOLOGY DOCUMENT SCAN 10/07/2022 documented in this encounter Results * SCAN - LABS (10/07/2022) us Provider Scanning Final Result * Cardiology Document Scan (10/07/2022) Anatomical Region Laterality Modality Other us Provider Scanning [facility] CARDIAC SERVICES PROCEDURES Final Result documented in this encounter Visit Diagnoses Not on filedocumented in this encounter Care Teams Emergency Man Relationship Specialty Start Date End Date Timothy Banks MD PCP - General 07/08/16 documented as of this encounter
--- OUTSIDE RECORDS SUMMARY | 2025-01-03 09:16 | XMS_ITS | Clinical Summary ---
Author Organization [facility] Address [address] [place] [address] Care Team Providers Care Pad Cutter Name Role Phone Unavailable Primary Care Provider Unavailabl e Immunizations Immunization Administration Dates Next Due Covid-19, Mrna, Lnp-s, Pf, 30 Mcg/0.3 Ml Dose (P fizer) 04/14/2021 Social History Tobacco Use Types Packs/Day Years Used Date Smoking Tobacco: Never Assessed Sex and Gender Information Value Date Recorded Sex Assigned at Not on file Legal Sex Male 3:46 PM AUTOMATIC VULCANIZING OPERATOR Gender Identity Not on file Sexual Orientation Not on file Plan of Treatment Health Maintenance Due Date Last Done Comments Hepatitis C Virus (HCV) Screening 1945 Respiratory Syncytial Virus (RSV) Immunization (Adult) (1 - 1-dose 75+ series) 11/04/2019 Influenza Immunization (#1) 2024 08/2 06/2020, 01/09/2020, 01/04/2020, Additional history exists SARS-COV-2 Immunization ( season) 2024 04/14/2021, 06/25/2020, 06/02/2020 DTaP/Tdap/Td Immunization Discontinued 09/17/2018 [...]
--- OUTSIDE RECORDS SUMMARY | 2025-01-03 09:16 | XMS_ITS | Encounter Summary ---
Author Organization [facility] Address [address] [place] [address] Phone Care Team Providers Care Teacher Home Therapy Name Role Phone Timothy Banks MD Primary Care Provider [phone] Encounter Details Date Type Department Care Team (Latest Contact Info) Description 01/09/2024 Orders Only [facility] HEMATOLOGY Scanning, Provider Social History Tobacco Use Types Packs/Day Years Used Date Smoking Tobacco: Never Smokeless Tobacco: Never Alcohol Use Standard Drinks/Week Comments Yes 0 (1 standard drink = 0.6 oz pur e alcohol) Sex and Gender Information Value Date Recorded Sex Assigned at Not on file Legal Sex Male 4:19 AM HOOD MAKER Gender Identity Male 01/12/2020 7:43 PM CDT Sexual Orientation Straight 01/12/2020 7: 43 PM CDT documented as of this encounter Plan of Treatment Upcoming Encounters Date Type Department Care Team (Latest Contact Info) Description 01/06/2025 Orders Only [facility]EMATOLOGY Scanning, Provider documented as of this encounter Procedures Procedure Name Priority Date/Time Associated Diagnosis Comments SCAN - LABS 01/09/2024 documented in this encounter Results * SCAN - LABS (01/09/2024) us Provider Scanning Final Result documented in this encounter Visit Diagnoses Not on filedocumented in this encounter Care Teams Teacher Home Therapy Relationship Specialty Start Date End Date Timothy Banks MD PCP - General 07/08/16 documented as of this encounter
--- OUTSIDE RECORDS SUMMARY | 2025-01-03 09:16 | XMS_ITS | Clinical Summary ---
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 current use of anticoagulant therapy 1 06/01/2015 [...] Description 10/04/2024 8:45 AM CDT Office Visit [facility] Card[facility] [address] [place] [address] Jayro Kaminski MD rodent exterminator current use of anticoagulant therapy (Primary [...] 03/31/2016 - Hx Other Medical CKD; Comments: [facility] 03/31/2016 - GERD (gastroesophageal reflux disease) [...] on file Legal Sex Male 4:19 AM UI ARCHITECT Gender Identity Male 01/12/2020 7:43 PM CDT [...] 10/04/2024 8:38 AM CDT Plan of Treatment Upcoming Encounters Date Type Department Care Team (Latest Contact Info) Description 01/06/2025 Orders Only [facility]AT[facility] Scanning, Provider Health Maintenance Due Date Last Done Comments [...] vaccine 65+ Completed 09/17/2018, 08/08 Insurance [address] [id number] [facility] MEDICARE [address] [phone] [employer] MEDICARE [address] [phone] [facility] MEDICARE Care Teams Bow Tacker Relationship Specialty Start Date End Date Timothy aBnks MD PCP - General 07/08/16
--- OUTSIDE RECORDS SUMMARY | 2025-01-03 09:16 | XMS_ITS | Encounter Summary ---
Author Organization [facility] Address [address] [place] [address] Phone Care Team Providers Care Sql Analyst Name Role Phone Timothy Banks MD Primary Care Provider [phone] Encounter Details Date Type Department Care Team (Late st Contact Info) Description 08/25/2017 Orders Only [facility] ProviderDusty MD [address] [place] [id number] Social History Tobacco Use Types Packs/Day Years Used Date Smoking Tobacco: Never Smokeless Tobacco: Never Alcohol Use Standard Drinks/Week Comments Yes 0 (1 standard drink = 0.6 oz pur e alcohol) Sex and Gender Information Value Date Recorded Sex Assigned at Not on file Legal Sex Male 4:19 AM 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
--- OUTSIDE RECORDS SUMMARY | 2025-01-03 09:16 | XMS_ITS | Clinical Summary ---
Author Organization [facility] Address [address] [place] [address] Care Team Providers Care Law Office Receptionist Name Role Phone Timothy Banks MD Primary Care Provider [phone] Cindy Garcia MD Unavailable Source Comments [facility],non-owned Affiliates and Associated Physician Practices is amultiple site organization consisting of ambulatory clinics and hospital sitesin [place] and [place]. This disclosure is being madepursuant to the Care Everywhere program and may not contain all information available regarding this patient. Last updated 17.[facility] Allergies Active Allergy Reactions Criticality [...] Leukemia 30 tablet 3 08/15/19 25 Active nortriptyline (Pamelor) 25 [...] DAILY 60 tablet 3 11/27/19 25 Active Cresemba 186 MG capsule TAKE 2 CAPSULES BY MOUTH EVERY 24 HOURS 56 capsule 3 12/12/19 25 Active mirtazapine (Remeron) 7.5 MG tablet Take 1 (one) tablet by mouth at bedtime 30 tablet 12/18/19 25 Active isavuconazoni um (Cresemba) 186 MG capsule Take 2 (two) capsules by mouth every 24 hours 56 capsule 3 08/15/19 25 025 Discontinued amoxicillin-c lavulanate (Augmentin) 875-125 MG tablet Take 1 (one) tablet by mouth 2 times daily with morning and evening meal for 11 days 22 tablet 12/16/19 25 025 Active Problems Problem Noted Date [...] and leukopenia -Follows with Dr. Garcia at [facility], received 7th cycle of chemotherapy 11/08-11/11 [...] and leukopenia -Follows with Dr. 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 [address] [place] [address] Francisco Peraza MD Discharge Disposition: Home or Self Care 12/30/2024 Travel 12/27/2024 Orders Only [facility] - Hematology/Oncolog y [address] [place] [address] Nikole Chou RN Acute myeloid leukemia in remission (HCC) 12/20/2024 Orders Only [facility] - Hematology/Oncolog y [address] [place] [address] Nikole Chou RN Acute myeloid leukemia in remission (HCC) 12/18/2024 Orders Only [facility] - Hematology/Oncolog y [address] [place] [address] Cindy Garcia MD Cardiac arrhythmia, unspecified cardiac arrhythmia type 12/17/2024 3:00 PM CDT Video Visit [facility] - Hematology/Oncolog y [address] [place] [address] Cindy Garcia MD Acute myeloid leukemia in remission (HCC) 12/17/2024 Orders Only [facility] - Hematology/Oncolog y [address] [place] [address] Cindy Garcia MD Vitamin D deficiency 12/17/2024 Orders Only [facility] - Hematology/Oncolog y [address] [place] [address] Cindy Garcia MD 12/13/2024 4:16 PM CDT - 12/15/2024 4:03 PM CDT Hospital Encounter 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 [address] [place] [address] Timothy Banks MD Discharge Disposition: Home or Self Care 12/10/2024 Travel 12/08/2024 Refill [facility] - Hematology/Oncolog y [address] [place] [address] Cindy Garcia MD Refill Request 12/06/2024 Orders Only [facility] - Hematology/Oncolog y [address] [place] [address] Nikole Chou RN Acute myeloid leukemia in remission (HCC) 12/05/2024 9:30 AM CDT Office Visit [facility] - GI [address] [facility] [place] [phone] Eric Lai MD Diverticulitis (Primary Dx) 12/05/[address] [facility] ENDOSCOPY [address] [place] [phone] Nai Ayon RN 12/05/2024 Travel 11/29/2024 Orders Only [facility] - Hematology/Oncolog y [address] [place] [address] Nikole Chou RN Acute myeloid leukemia in remission (HCC) 11/25/2024 11:00 AM CDT Video Visit [facility] - Hematology/Oncolog y [address] [place] [address] Stephanie Connolly APRN-PACKAGING INSPECTOR Acute myeloid leukemia in remission (HCC) ; Decreased appetite 11/22/2024 Orders Only [facility] - Hematology/Oncolog y [address] [place] [address] Nikole Chou RN Acute myeloid leukemia in remission (HCC) 11/20/2024 Refill [facility] - Hematology/Oncolog y [address] [place] [phone] Cindy Garcia MD Refill Request 11/15/2024 8:07 AM CDT - 11/15/2024 11:59 PM CDT Hospital Encounter [facility] [address] [place] [address] Timothy Banks MD Discharge Disposition: Home or Self Care 11/15/2024 Travel 11/14/2024 8:30 AM CDT - 11/14/2024 11:59 PM CDT Hospital Encounter [facility] [address] [place] [address] Timothy Banks MD Discharge Disposition: Home or Self Care 11/14/2024 Travel 11/13/2024 8:10 AM CDT - 11/13/2024 11:59 PM CDT Hospital Encounter [facility] [address] [place] [address] Timothy Banks MD Discharge Disposition: Home or Self Care 11/13/2024 Refill [facility] - Hematology/Oncolog y [address] [place] [phone] Cindy Garcia MD Refill Request 11/13/2024 Travel 11/12/2024 8:14 AM CDT - 11/12/2024 11:59 PM CDT Hospital Encounter [facility] [address] [place] [address] Timothy Banks MD Discharge Disposition: Home or Self Care 11/12/2024 Travel 11/11/2024 9:00 AM CDT 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 [address] [place] [address] Timothy Banks MD Discharge Disposition: Home or Self Care 11/11/2024 Travel 11/08/2024 Orders Only [facility] - Hematology/Oncolog y [address] [place] [address] Nikole Chou RN Acute myeloid leukemia in remission (HCC) 11/06/2024 Orders Only [facility] - Hematology/Oncolog y [address] [place] [address] Cindy Garcia MD 11/04/2024 Results Follow-Up 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 [address] [place] [address] Cindy Garcia MD [facility] Discharge Disposition: Home or Self Care 10/29/2024 Travel 10/29/2024 Orders Only [facility] - Hematology/Oncolog y [address] [place] [address] Cindy Garcia MD 10/28/[address] [facility] [address] [place] [address] Olivia Peters RN Appointment 10/14/2024 8:49 AM CDT - 10/14/2024 11:59 PM CDT Hospital Encounter [facility] [address] [place] [address] Timothy Banks, Discharge Disposition: Home or Self Care 10/14/2024 Travel 10/10/2024 8:29 AM CDT - 10/10/2024 11:59 PM CDT Hospital Encounter [facility] [address] [place] [address] Timothy Banks, Discharge Disposition: Home or Self Care 10/10/2024 Travel 10/09/2024 8:51 AM CDT - 10/09/2024 11:59 PM CDT Hospital Encounter [facility] [address] [place] [address] Timothy Banks, Discharge Disposition: Home or Self Care 10/09/2024 Travel 10/08/2024 8:43 AM CDT - 10/08/2024 11:59 PM CDT Hospital Encounter 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 [address] [place] [address] Timothy Banks MD Discharge Disposition: Home or Self Care 10/07/2024 Travel from Last 3 Months Social History [...] Recorded Patient Health Questionnaire-2 Score 0 09/23/2024 [facility] [place] of Occupat ional Health - Occupational Stress [...] any time in the past 12 m [facility], were you homeless or living in a residential (including now)? No 12/14/2024 Sex and Gender Information Value Date Recorded Sex Assigned at Male 03/05/2024 8:04 AM FEEDER OPERATOR AUTOMATIC Legal Sex Male 6:32 PM FEEDER OPERATOR AUTOMATIC Gender Identity Male 03/05/2024 8:04 AM FEEDER OPERATOR AUTOMATIC Sexual Orientation Straight 03/05/2024 8: 04 AM FEEDER OPERATOR AUTOMATIC Last Filed Vital Signs Vital Sign Reading Time Taken Comments Blood Pressure 110/68 12/30/2024 9:41 AM CDT copied per pt Pulse 84 12/30/2024 9:41 AM CDT Temperature 36.4 C (97.6 F) 12/30/2024 9:41 AM CDT Respiratory Rate 20 12/30/2024 9:41 AM CDT Oxygen Saturation 97% 12/30/2024 8:2 4 AM CDT Inhaled Oxygen Concentration 21% 1:15 PM CDT Weight 92.5 kg (203 lb 14.8 oz) 12/30/2024 9:41 AM CDT Height 182.9 cm (6' 0.01) 12/14/2024 1 :13 AM CDT Body Mass Index 27.65 12/14/2024 1:13 AM CDT Plan of Treatment Upcoming Encounters Date Type Department Care Team (Latest Contact Info) Description 01/06/2025 8:30 AM CDT Hospital Encounter [facility] [address] [place] [phone] Francisco Peraza MD [id number] [place] [address] 01/07/2025 9:30 AM CDT Hospital Encounter [facility] [address] [place] [address] Francisco [place] [id number] [place] [address] 01/08/2025 9:30 AM CDT Hospital Encounter [facility] [address] [place] [address] Francisco Peraza MD [id number] [place] [address] 01/09/2025 9:[address] [facility] [address] [place] [address] Francisco Peraza MD [id number] [place] [address] 01/10/2025 9:[address] [facility] [address] [place] [address] Francisco Peraza MD [id number] [place] [address] 02/03/2025 9:[address] [facility] [address] [place] [address] 02/04/2025 9:[address] [facility] [address] [place] [address] 02/05/2025 9:[address] [facility] [address] [place] [address] 02/05/2025 11:15 AM CDT Hospital Encounter [facility] [address] [place] [address] Olivia Maldonado MD [address] [place] [address] [place] [address] Surgery General 02/05/2025 11:15 AM CDT - 02/05/2025 12:[address] [facility] [address] [place] [address] Olivia Maldonado MD [address] [facility] [address] [place] [address] COLONOSCOPY SCREEN 02/06/2025 9:[address] [facility] [address] [place] [address] 02/07/2025 9:[address] [facility] [address] [place] [address] 03/07/2025 2:20 PM FEEDER OPERATOR AUTOMATIC Office Visit [facility] - Cardiology [address] [facility] [address] [place] [address] Kaushal Archer MD [address] [place] [address] Scheduled Procedures Name Priority Associated Diagnoses Date/Ti me COLONOSCOPY SCREEN Diverticulitis 02/05/2025 11:15 AM CDT Health Maintenance Due Date Last Done Comments DTAP/TDAP/TD VACCINES (1 - Tdap) 11/04/1963 PNEUMOCOCCAL VACCINE 50+ (1 of 2 - PCV) 11/04/1963 ZOSTER VACCINE (1 of 2) 11/04/1963 Respiratory Syncytial Virus (RSV) Vaccine Pt: or over 60 yrs (1 - 1-dose 75+ series) 11/04/2019 MEDICARE AWV CALENDAR YEAR 2024 COVID-19 VACCINE ( - 2024- season) 2024 04/14/2021, 06/25/2020, 06/02/2020 INFLUENZA VACCINE (#1) 2024 , 12/21/2022, 12/25/2021, [...] on patient's age to complete this topic Goals Goal Patient Goal Type Associated Problems [...] one week prior to your last dose Medical Devices Implanted Type Area Fuel Cell Builder Device Identifier Shelf Expiration Date Model / Serial / Lot Port Implinfn Powerport Clrvu Argd Kandy Implanted:Qty : 1 on 04/11/2024 by Davian Marshall MD at [facility] Catheters Right: Chest Wall [employer] [id number] 02/07/2025 [id number] / / [id number] Procedures Procedure Name Priority Date/Time Associated Diagnosis Comments DIFFERENTIAL MANUAL STAT 12/30/2024 8 :42 AM CDT Acute myeloid leukemia in remission (HCC) IRON + TRANSFERRIN PANEL Routine 12/30/2024 8:42 AM CDT COMPREHENSIVE METABOLIC PANEL STAT 12/30/2024 8:42 AM CDT Acute myeloid leukemia in remission (HCC) CBC W AUTO DIFFERENTIAL STAT 12/30/2024 8:42 AM CDT Acute myeloid leukemia in remission (HCC) MAGNESIUM BLOOD Routine 12/30/2024 8:42 AM CDT Cardiac arrhythmia, unspecified cardiac arrhythmia type VITAMIN D 25-HYDROXY Routine 12/30/2024 8:42 AM CDT Vitamin D deficiency PT-INR Routine 12/30/2024 8:42 AM CDT MDS (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, 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) URIC ACID BLOOD Routine 12/30/2024 8:42 AM CDT MDS (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, 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) LDH BLOOD Routine 12/30/2024 8:42 AM CDT MDS (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, 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) TRANSFERRIN Routine 12/30/2024 8:42 AM CDT MDS (myelodysplastic syndrome) (HCC) FERRITIN Routine 12/30/2024 8:42 AM CDT MDS (myelodysplastic syndrome) (HCC) ZINC BLOOD Routine 12/30/2024 8:42 AM CDT MDS (myelodysplastic syndrome) (HCC) COPPER BLOOD Routine 12/30/2024 8:42 AM CDT MDS (myelodysplastic syndrome) (HCC) FOLATE Routine 12/30/2024 8:42 AM CDT MDS (myelodysplastic syndrome) (HCC) VITAMIN B12 Routine 12/30/2024 8:42 AM CDT MDS (myelodysplastic syndrome) (HCC) EKG 12-LEAD Routine 12/30/2024 8:25 AM CDT Acute myeloid leukemia in remission (HCC) Cardiac arrhythmia, unspecified cardiac arrhythmia type PHOSPHORUS BLOOD Routine 12/15/2024 5:22 AM CDT MAGNESIUM BLOOD Routine 12/15/2024 5:22 AM CDT CBC W/O DIFFERENTIAL Routine 12/15/2024 5:22 AM CDT BASIC METABOLIC PANEL (CALCIUM TOTAL) Routine 12/15/2024 5:22 AM CDT LACTIC ACID BLOOD Timed 12/14/2024 2:1 8 PM CDT LACTIC ACID BLOOD Routine 12/14/2024 10: 02 AM CDT PHOSPHORUS BLOOD Routine 12/14/2024 5:33 AM CDT MAGNESIUM BLOOD Routine 12/14/2024 5:33 AM CDT CBC W/O DIFFERENTIAL Routine 12/14/2024 5:33 AM CDT BASIC METABOLIC PANEL (CALCIUM TOTAL) Routine 12/14/2024 5:33 AM CDT URINALYSIS REFLEX MICROSCOPIC REFLEX CULTURE STAT 12/13/2024 8:59 PM CDT LACTIC ACID BLOOD REFLEX TO REPEAT Timed STAT 12/13/2024 8:58 PM CDT LACTIC ACID BLOOD REFLEX TO REPEAT Timed STAT 12/13/2024 6:[address] ABDOMEN PELVIS W CONTRAST STAT 12/13/2024 6:02 PM CDT Left lower quadrant abdominal pain DIFFERENTIAL MANUAL STAT 12/13/2024 4 :09 PM CDT LACTIC ACID BLOOD REFLEX TO REPEAT STAT 12/13/2024 4:09 PM CDT LIPASE BLOOD STAT 12/13/2024 4:09 PM CDT COMPREHENSIVE METABOLIC PANEL STAT 12/13/2024 4:09 PM CDT CBC W AUTO DIFFERENTIAL STAT 12/13/2024 4:09 PM CDT DIFFERENTIAL MANUAL Routine 12/10/2024 9 :15 AM CDT Acute myeloid leukemia in remission (HCC) COMPREHENSIVE METABOLIC PANEL Routine 12/10/2024 9:15 AM CDT Acute myeloid leukemia in remission (HCC) CBC W AUTO DIFFERENTIAL Routine 12/10/2024 9:15 AM CDT Acute myeloid leukemia in remission (HCC) DIFFERENTIAL MANUAL Routine 11/11/2024 8 :28 AM [...] (HCC) from Last 3 Months Results * URIC ACID BLOOD (12/30/2024 8:42 AM CDT) Uric Acid 6.1 3.5 - 7.2 mg/dL 12/30/2024 9:[address] [facility] Blood BLOOD SPECIMEN / Unknown Venipuncture / Unknown 12/30/2024 8:42 AM CDT 12/30/2024 9:03 AM CDT José Luis Gomez SSN/SSBN ASSISTANT NAVIGATOR-PACKAGING INSPECTOR LAB - CHEMISTRY ORDERABL ES Final Result Performing Organization Address [facility]/State/ZIP Co de Phone Number [facility] [address] [address], [facility] [phone] * (ABNORMAL) ZINC BLOOD (12/30/2024 8:42 AM CDT) Zinc 54.6(L) 60.0 - 120.0 ug/dL 12/31/2024 8:33 PM CDT [facility] ([facility]) Comment: INTERPRETIVE INFORMATION: Zinc, Serum or [...] developed and its performance characteristics determined by [employer]. It has not been cleared or approved by the US Food and Drug Administration. This test was performed in a CLIA certified laboratory and is intended for clinical purposes. Performed By: [facility] [employer] [address] [place] [address] Outcomes Specialist: Uche Morley MD, PhD CLIA Number: [id number] Blood BLOOD SPECIMEN / Unknown Venipuncture / Unknown 12/30/2024 8:42 AM CDT 12/30/2024 8:53 AM CDT Cindy Garcia MD LAB - CHEMISTRY ORDERABLES Final Result Performing Organization Address City/[facility]/ZIP Co de Phone Number [facility]) [address] [place] [address] * TRANSFERRIN (12/30/2024 8:42 AM CDT) Transferrin 202 174 - 382 mg/dL 12/30/2024 10:59 AM CDT [facility] Blood BLOOD SPECIMEN / Unknown Venipuncture / Unknown 12/30/2024 8:42 AM CDT 12/30/2024 8:53 AM CDT Cindy Garcia MD LAB - CHEMISTRY ORDERABLES Final Result [address] [address], [facility] [phone] * COPPER BLOOD (12/30/2024 8:42 AM CDT) Copper 97.9 70.0 - 140.0 ug/dL 12/31/2024 8:33 PM CDT [facility]) Comment: INTERPRETIVE INFORMATION: Copper, Serum or [...] developed and its performance characteristics determined by [employer]. It has not been cleared or approved by the US Food and Drug Administration. This test was performed in a CLIA certified laboratory and is intended for clinical purposes. Performed By: [place] [address] Outcomes Specialist: Uche Morley MD, PhD CLIA Number: [id number] Blood BLOOD SPECIMEN / Unknown Venipuncture / Unknown 12/30/2024 8:42 AM CDT 12/30/2024 8:53 AM CDT Cindy Garcia MD LAB - CHEMISTRY ORDERABLES Final Result [facility] ([facility]) [address] [place] [address] * (ABNORMAL) VITAMIN D 25-HYDROXY (12/30/2024 8:42 AM CDT) Only the most recent of2 resultswithin the time period is included. [facility] Signature Vitamin D, 25 Hydroxy 26.2(L) 30.0 - 80.0 ng/mL 12/30/2024 9:[address] [facility] Comment: The recommendations for 25-Hydroxy [...] BLOOD SPECIMEN / Unknown Venipuncture / Unknown 12/30/2024 8:42 AM CDT 12/30/2024 9:05 AM CDT Cindy Garcia MD LAB - CHEMISTRY ORDERABLES Final Result Performing Organization Address City/[facility]/ZIP Co de Phone Number [address] [address], [facility] [phone] * (ABNORMAL) PT-INR (12/30/2024 8:42 AM CDT) Only the most recent of2 resultswithin the time period is included. PT 15.7(H) 12.1 - 14.8 Seconds 12/30/2024 10:11 AM CDT [facility] INR 1.3 See Comment 12/30/2024 10:11 AM CDT [facility] Comment:The suggested therap eutic range for standard coumadin (warfarin) therapy is an INR of 2.0-3.0. For high-risk patients (Mechanical Mitral Valve Prosthesis, etc.), the suggested prophylactic therapeutic range is an INR of 2.5-3.5. Blood BLOOD SPECIMEN / Unknown Venipuncture / Unknown 12/30/2024 8:42 AM CDT 12/30/2024 8:53 AM CDT José Luis Jason SSN/SSBN ASSISTANT NAVIGATOR-PACKAGING INSPECTOR LAB - COAGULATION ORDERA BLES Final Result Performing Organization Address City/[facility]/ZIP Co de Phone Number [address] [address], [facility] [phone] * (ABNORMAL) DIFFERENTIAL MANUAL (12/30/2024 8:42 AM CDT) Only the most recent of5 resultswithin the time period is included. Neutrophil % 31(L) 41 - 74 % 12/30/2024 10:[address] [facility] Lymphocyte % 39 17 - 47 % 12/30/2024 10:14 AM T [facility] Comment:Abnormal Lymphocytes present Monocyte % 22(H) 3 - 11 % 12/30/2024 10:14 AM CDT [facility] Eosinophil % 3 0 - 7 % 12/30/2024 10:14 AM [facility] Metamyelocyte % 2(H) 0% % 10:14 AM [facility] Myelocyte % 3(H) 0% % 12/30/2024 10:14 AM [facility] Neutrophil Absolute 0.43(L) 1.60 - 7.50 x10E9/L 12/30/2024 10:14 AM [facility] Lymphocyte Absolute 0.55(L) 1.00 - 4.40 x10E9/L 12/30/2024 10:14 AM [facility] Monocyte Absolute 0.31 0.15 - 1.00 x10E9/L 12/30/2024 10:14 AM [facility] Eosinophil Absolute 0.04 0.00 - 0.60 x10E9/L 12/30/2024 10:14 AM [facility] RBC Morphology REVIEWED 12/30/2024 10:14 AM [facility] Macrocytosis MODERATE(A) (none) 12/30/2024 10:14 AM [facility] Ovalocytes MODERATE(A) (none) 12/30/2024 10:14 AM [facility] Schistocytes FEW(A) (none) 12/30/2024 10:14 AM [facility] Large Platelets PRESENT(A) (none) 10:14 AM [facility] Comment See Comment 12/30/2024 10:14 AM [facility] Comment:clumped and cleaved nucleus in the abnormal lymphs Blood BLOOD SPECIMEN / Unknown Venipuncture / Unknown 12/30/2024 8:42 AM CDT 12/30/2024 9:03 AM CDT us Cindy Garcia MD LAB - HEMATOLOGY ORDERABLES Jamila stern Result [facility] [address] [place] [address], [facility] [phone] * (ABNORMAL) CBC W AUTO DIFFERENTIAL (12/30/2024 8:42 AM CDT) Only the most recent of5 resultswithin the time period is included. WBC 1.4(L) 4.0 - 10.7 x10E9/L 12/30/2024 10:14 AM [facility] RBC Count 3.23(L) 4.30 - 5.80 x10E12/L 12/30/2024 10:14 AM [facility] Hemoglobin 11.1(L) 13.3 - 17.5 g/dL 12/30/2024 10:14 AM [facility] Hematocrit 34.4(L) 38.7 - 51.1 % 12/30/2024 10:14 AM [facility] MCV 106.5(H) 80.0 - 98.0 fL 12/30/2024 10:14 AM [facility] MCH 34.4(H) 26.7 - 33.6 pg 12/30/2024 10:14 AM [facility] MCHC 32.3 31.7 - 36.3 g/dL 12/30/2024 10:14 AM [facility] RDW-CV 16.5(H) 11.3 - 14.8 % 12/30/2024 10:14 AM [facility] [facility] Platelet Count 119(L) 150 - 420 x10E9/L 12/30/2024 10:14 AM [facility] MPV 12/30/2024 10:14 AM [facility] Comment:Unable to report Preliminary Absolute Neutrophil 0.39(L) 1.60 - 7.50 x10E9/L 12/30/2024 10:14 AM [facility] Comment:Preliminary ANC pend ing manual confirmation Blood BLOOD SPECIMEN / Unknown Venipuncture / Unknown 12/30/2024 8:42 AM CDT 12/30/2024 9:03 AM [facility] us Cindy Garcia MD LAB - HEMATOLOGY ORDERABLES Jamila stern Result [facility] [address] [place] [address], [facility] [phone] * (ABNORMAL) COMPREHENSIVE METABOLIC PANEL (12/30/2024 8:42 AM [facility]) Only the most recent of5 resultswithin the time period is included. BUN 16 7 - 26 mg/dL 12/30/2024 9:34 AM [facility] Creatinine 1.20(H) 0.71 - 1.16 mg/dL 12/30/2024 9:34 AM [facility] Sodium 142 136 - 145 mmol/L 12/30/2024 9:34 AM [facility] Potassium 4.3 3.5 - 4.5 mmol/L 12/30/2024 9:34 AM [facility] Chloride 112(H) 98 - 107 mmol/L 12/30/2024 9:34 AM [facility] CO2 24 22 - 29 mmol/L 12/30/2024 9:34 AM [facility] Glucose 108(H) 70 - 99 mg/dL 12/30/2024 9:34 AM [facility] Calcium 8.7 8.4 - 10.2 mg/dL 12/30/2024 9:34 AM [facility] Protein Total 6.2 6.0 - 8.3 g/dL 12/30/2024 9:34 AM [facility] Albumin 3.9 3.4 - 5.0 g/dL 12/30/2024 9:34 AM [facility] Bilirubin Total 0.4 0.2 - 1.2 mg/dL 12/30/2024 9:34 AM [facility] Alkaline Phosphatase 105 40 - 150 U/L 12/30/2024 9:34 AM [facility] ALT 15 5 - 55 U/L 12/30/2024 9:34 AM [facility] AST 13 5 - 34 U/L 12/30/2024 9:34 AM [facility] Anion Gap 6 6 - 16 12/30/2024 9:34 AM [facility] BUN/Creatinine Ratio 13 7 - 23 12/30/2024 9:34 AM [facility] Osmolality Calculated 296(H) 275 - 295 mOsm/kg 12/30/2024 9:34 AM CDT [facility] Albumin/Globulin Ratio 1.7 1.1 - 2.3 12/30/2024 9:34 AM CDT [facility] eGFR by CKD-EPI 61(L) >=90 mL/min/1.7 3 m2 12/30/2024 9:34 AM CDT [facility] Comment:Estimated Glomerular Filtration Rate (eGFR) calculated using the CKD-EPI Creatinine Equation (2020), per the National Kidney Foundation and [place] [employer]ph[employer] recommendations. Blood BLOOD SPECIMEN / Unknown Venipuncture / Unknown 12/30/2024 8:42 AM CDT 12/30/2024 9:03 AM CDT us Cindy Garcia MD LAB - CHEMISTRY ORDERABLES Final Result [address] [address], [place] [phone] * MAGNESIUM BLOOD (12/30/2024 8:42 AM CDT) Only the most recent of3 resultswithin the time period is included. Magnesium 2.0 1.6 - 2.6 mg/dL 12/30/2024 9:34 AM CDT [facility] Blood BLOOD SPECIMEN / Unknown Venipuncture / Unknown 12/30/2024 8:42 AM CDT 12/30/2024 9:03 AM CDT us Cindy Garcia MD LAB - CHEMISTRY ORDERABLES Final Result [address] [address], [place] [phone] * (ABNORMAL) LDH BLOOD (12/30/2024 8:42 AM CDT) LDH Total 267(H) 125 - 243 Units/L 12/30/2024 9:34 AM CDT [facility] Blood BLOOD SPECIMEN / Unknown Venipuncture / Unknown 12/30/2024 8:42 AM CDT 12/30/2024 9:03 AM CDT us José Luis Gomez SSN/SSBN ASSISTANT NAVIGATOR-PACKAGING INSPECTOR LAB - CHEMISTRY ORDERABL ES Final Result [address] [address], [place] [phone] * FOLATE (12/30/2024 8:42 AM CDT) Folate 17.2 7.0 - 31.4 ng/mL 12/30/2024 10:06 AM CDT [facility] Blood BLOOD SPECIMEN / Unknown Venipuncture / Unknown 12/30/2024 8:42 AM CDT 12/30/2024 9:03 AM CDT Cindy Garcia MD LAB - CHEMISTRY ORDERABLES Final Result Performing Organization Address City/[facility]/ZIP Co de Phone Number [address] [address], [place] [phone] * VITAMIN B12 (12/30/2024 8:42 AM CDT) Vitamin B12 521 213 - 816 pg/mL 12/30/2024 10:06 AM CDT [facility] Blood BLOOD SPECIMEN / Unknown Venipuncture / Unknown 12/30/2024 8:42 AM CDT 12/30/2024 9:03 AM CDT us Cindy Garcia MD LAB - CHEMISTRY ORDERABLES Final Result [address] [address], [place] [phone] * IRON + TRANSFERRIN PANEL (12/30/2024 8:42 AM CDT) Iron 114 50 - 175 ug/dL 12/30/2024 10:59 AM CDT [facility] Transferrin 202 174 - 382 mg/dL 12/30/2024 10:59 AM CDT [facility] Transferrin Saturation % 45 16 - 50 % 12/30/2024 10:59 AM CDT [facility] TIBC Calculated 253 240 - 450 ug/dL 12/30/2024 10:59 AM CDT [facility] Blood BLOOD SPECIMEN / Unknown Venipuncture / Unknown 12/30/2024 8:42 AM CDT 12/30/2024 8:53 AM CDT Cindy Garcia MD LAB - CHEMISTRY ORDERABLES Final Result Performing Organization Address City/[facility]/ZIP Co de Phone Number [address] [address], [place] [phone] * FERRITIN (12/30/2024 8:42 AM CDT) Pathologist [facility] Ferritin 84 22 - 275 ng/mL 12/30/2024 10:32 AM CDT [facility] Blood BLOOD SPECIMEN / Unknown Venipuncture / Unknown 12/30/2024 8:42 AM CDT 12/30/2024 8:53 AM CDT Cindy Garcia MD LAB - CHEMISTRY ORDERABLES Final Result Performing Organization Address [facility] Co de Phone Number [address] [address], [place] [phone] * EKG 12-Lead (12/30/2024 8:25 AM CDT) Ventricular Rate [address] [facility] MUSE Atrial Rate [address] [facility] P-R Interval [address] [facility] QRS Duration ms [address] [facility] Q-T Interval ms [address] [facility] QTC Calculation (Bezet) [address] [facility] M[facility] Calculated P [place] 31 degrees [facility] MUSE Calculated R [place] [address] [facility] M[facility] Calculated T [place] -[address] [facility] M[facility] Interpretation EKG SINUS BRADYCARDIA NON-SPECIFIC INTRA-VENTRICULA R CONDUCTION DELAY ST & MARKED T WAVE ABNORMALITY, CONSIDER ANTEROLATERAL ISCHEMIA ABNORMAL ECG WHEN COMPARED WITH ECG OF 23-AUG-2024 13:51, PREMATURE ATRIAL COMPLEXES ARE NO LONGER PRESENT NON-SPECIFIC INTRA-VENTRICULA R CONDUCTION DELAY HAS REPLACED RIGHT BUNDLE BRANCH BLOCK Confirmed by DEIDRE MONROE MD ([id number]) on 12/31/2024 3:01:[address] [facility] 12/30/2024 8:25 AM CDT 12/31/2024 3:01 PM CDT Stephanie Connolly SSN/SSBN ASSISTANT NAVIGATOR-PACKAGING INSPECTOR ECG ORDERABLES Edit ed Result - Final [facility] * (ABNORMAL) CBC W/O DIFFERENTIAL (12/15/2024 5:22 AM CDT) Only the most recent of2 resultswithin the time period is included. WBC 2.6(L) 4.0 - 10.7 x10E9/L 12/15/2024 6:50 AM [facility] RBC Count 2.88(L) 4.30 - 5.80 x10E12/L 12/15/2024 6:50 AM [facility] Hemoglobin 10.2(L) 13.3 - 17.5 g/dL 12/15/2024 6:50 AM [facility] Hematocrit 30.7(L) 38.7 - 51.1 % 12/15/2024 6:50 AM [facility] MCV 106.6(H) 80.0 - 98.0 fL 12/15/2024 6:50 AM [facility] MCH 35.4(H) 26.7 - 33.6 pg 12/15/2024 6:50 AM [facility] MCHC 33.2 31.7 - 36.3 g/dL 12/15/2024 6:50 AM [facility] RDW-CV 15.6(H) 11.3 - 14.8 % 12/15/2024 6:50 AM [facility] Platelet Count 106(L) 150 - 420 x10E9/L 12/15/2024 6:50 AM [facility] MPV 12/15/2024 6:50 AM [facility] Comment:Unable to report Blood BLOOD SPECIMEN / Unknown Lab Venipuncture / Unknown 12/15/2024 5:22 AM CDT 12/15/2024 5:40 AM CDT us Nimesh Rubin MD LAB - HEMATOLOGY ORDERABLES Fi nal Result [facility] [address] [place] [address], [facility] [phone] * (ABNORMAL) BASIC METABOLIC PANEL (CALCIUM TOTAL) (12/15/2024 5:22 AM CDT) Only the most recent of2 resultswithin the time period is included. BUN 10 7 - 26 mg/dL 12/15/2024 6:16 AM [facility] Creatinine 1.19(H) 0.71 - 1.16 mg/dL 12/15/2024 6:16 AM [facility] Sodium 138 136 - 145 mmol/L 12/15/2024 6:16 AM [facility] Potassium 4.1 3.5 - 4.5 mmol/L 12/15/2024 6:16 AM [facility] Chloride 105 98 - 107 mmol/L 12/15/2024 6:16 AM [facility] CO2 25 22 - 29 mmol/L 12/15/2024 6:16 AM [facility] Glucose 119(H) 70 - 99 mg/dL 12/15/2024 6:16 AM [facility] Calcium 8.5 8.4 - 10.2 mg/dL 12/15/2024 6:16 AM [facility] Anion Gap 8 6 - 16 12/15/2024 6:16 AM [facility] BUN/Creatinine Ratio 8 7 - 23 12/15/2024 6:16 AM [facility] Osmolality Calculated 286 275 - 295 mOsm/kg 12/15/2024 6:16 AM [facility] eGFR by CKD-EPI 62(L) >=90 mL/min/1.7 3 m2 12/15/2024 6:16 AM [facility] Comment:Estimated Glomerular Filtration Rate (eGFR) calculated using the CKD-EPI Creatinine Equation (2020), per the National Kidney Foundation and [place] [employer]ph[employer] recommendations. Blood BLOOD SPECIMEN / Unknown Lab Venipuncture / Unknown 12/15/2024 5:22 AM CDT 12/15/2024 5:40 AM CDT Nimesh Rubin MD LAB - CHEMISTRY ORDERABLES Fin al Result Performing Organization Address City/[facility] Co de Phone Number [address] [address], [facility] [phone] * PHOSPHORUS BLOOD (12/15/2024 5:22 AM CDT) Only the most recent of2 resultswithin the time period is included. Phosphorus 2.9 2.8 - 5.1 mg/dL 12/15/2024 6:16 AM CDT [facility] Blood BLOOD SPECIMEN / Unknown Lab Venipuncture / Unknown 12/15/2024 5:22 AM CDT 12/15/2024 5:40 AM CDT us Nimesh Rubin MD LAB - CHEMISTRY ORDERABLES Fin al Result Performing Organization Address [facility] Co de Phone Number [address] [address], [place] [phone] * LACTIC ACID BLOOD (12/14/2024 2:18 PM CDT) Only the most recent of2 resultswithin the time period is included. Lactic Acid-Stat 1.3 <=2.0 mmol/L 12/14/2024 2:56 PM CDT [facility] Blood BLOOD SPECIMEN / Unknown Lab Venipuncture / Unknown 12/14/2024 2:18 PM CDT 12/14/2024 2:30 PM CDT Sylvia Singh MD LAB - CHEMISTRY ORDERABLES Final Result Performing Organization Address City/[facility]/ZIP Co de Phone Number [address] [address], [place] [phone] * (ABNORMAL) URINALYSIS REFLEX MICROSCOPIC REFLEX CULTURE (12/13/2024 8:59 PM CDT) Color UA Yellow Yellow, Straw 12/13/2024 9:19 PM [facility] Clarity UA Clear Clear 12/13/2024 9:19 PM [facility] Glucose UA Normal Normal 12/13/2024 9:19 PM [facility] Bilirubin UA Negative Negative 12/13/2024 9:19 PM [facility] Ketone UA Trace(A) Negative 12/13/2024 9:19 PM [facility] Specific [place] UA 1.028 1.005 - 1.030 12/13/2024 9:19 PM [facility] Blood UA Negative Negative 12/13/2024 9:19 PM [facility] pH UA 7.5 5.0 - 8.0 12/13/2024 9:19 PM [facility] Protein UA Negative Negative 12/13/2024 9:19 PM [facility] Urobilinogen UA Normal Normal mg/dL 12/13/2024 9:19 PM [facility] Nitrite UA Negative Negative 12/13/2024 9:19 PM [facility] Leukocyte Esterase UA Negative Negative 12/13/2024 9:19 PM [facility] Reflex Status Culture not indicated 12/13/2024 9:19 PM [facility] Urine Microscopy Urine microscopy not indicated 12/13/2024 9:19 PM [facility] Urine URINE SPECIMEN OBTAINED BY CLEAN CATCH PROCEDURE / Unknown Collection / Unknown 12/13/2024 8:59 PM CDT 12/13/2024 9:09 PM CDT [facility] - 12/13/2024 9:19 PM CDT us Otilia Azul PA-C LAB - URINALYSIS ORDERABLES Fin al Result [facility] [address] [place] [address], [place] [phone] * (ABNORMAL) LACTIC ACID BLOOD REFLEX TO REPEAT (12/13/2024 8:58 PM CDT) Only the most recent of3 resultswithin the time period is included. Lactic Acid-Stat 2.2(H) <=2.0 mmol/L 12/13/2024 9:40 PM CDT [facility] Blood BLOOD SPECIMEN / Unknown Venipuncture / Unknown 12/13/2024 8:58 PM CDT 12/13/2024 9:12 PM CDT us Otilia Azul PA-C LAB - CHEMISTRY ORDERABLES Jamila stern Result [facility] [address] [place] [address], [facility] [phone] * CT Abdomen Pelvis W Contrast (12/13/2024 6:02 PM CDT) Anatomical Region Laterality Modality Abdomen, Pelvis Computed Tomogra phy 12/13/2024 7:44 PM CDT Impressions 12/13/2024 8:21 PM CDT Impression: 1.Findings are consistent with uncomplicated diverticulitis of the distal sigmoid colon in the left lower quadrant. 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 3.Redemonstration of a moderate to large hiatal hernia. > Dictated by Yaron Gage MD (vice president process). > Dictated by Director Of Social Work I, Alexis Mccain MD have personally reviewed and interpreted this examination/study. > Interpreting Provider: Alexis Mccain MD on 12/13/2024 8:21 PM Narrative 12/13/2024 8:21 PM CDT PROCEDURE: CT ABDOMEN PELVIS W CONTRAST, DATE/TIME OF EXAM: 12/13/2024 6:02 PM, LOCATION [facility] INDICATION: R10.32: Left lower quadrant abdominal pain ADDITIONAL CLINICAL INFORMATION: Ordering Provider Reason For Exam: r/o diverticulitis, pancreatitis, cholecystitis, SBO, perf TECHNIQUE: CT of the abdomen and pelvis was performed following the uneventful administration of 100 mL of Isovue 370 intravenous contrast according to standard protocol. COMPARISON: CT chest abdomen pelvis 08/08/2024 Findings: Lower Chest: Mild bilateral dependent atelectasis is present in the visualized lung bases. Calcified granuloma at the left lung base. Coronary artery calcifications. Liver: Small area of focal steatosis around the falciform ligament. Gallbladder and Bile Ducts: The gallbladder is absent. Spleen: Normal aside from a small granuloma. Pancreas: Normal. Adrenals: Normal. Kidneys: Normal. Gastrointestinal: There is colonic diverticulosis. Fat stranding is seen focally at the left aspect of the distal sigmoid colon surrounding a thickened diverticula, series 3 image 89. No adjacent peritoneal fluid collections. The previously seen area of fat stranding around the transverse colon has resolved. No small or large bowel dilation. The appendix is not seen; however, no inflammatory changes are seen in the right lower quadrant. Redemonstrated a moderate-large hiatal hernia. Mesentery/Peritoneum/Retroperitoneum: No peritoneal free air. Bladder: Normal. Reproductive Organs: Prostate is enlarged like prior. Vasculature: Redemonstrated chronic thrombus within the inferior vena cava filter and in the bilateral iliac veins below. There is a left iliac veins stent which is occluded, unchanged. Collateral vessels in the region of the right retroperitoneum are redemonstrated. Bones: Bone windows demonstrate no suspicious lytic or blastic lesions. The visible osseous structures are intact. Degenerative changes are seen in the spine. Similar grade 1 anterolisthesis of L5 on S1 secondary to chronic bilateral L5 pars defects. Similar trace retrolisthesis of L1 on L2. Soft tissues: Right fat containing inguinal hernia. Right gluteus medius/minimus atrophy. A few radiodensities likely representing calcifications in the subcutaneous tissues posterior to the left hemipelvis. Procedure Note Alexis Mccain MD - 12/13/2024 PROCEDURE: CT ABDOMEN PELVIS W CONTRAST, DATE/TIME OF EXAM: 56:02 PM, LOCATION [facility] INDICATION: R10.32: Left lower quadrant abdominal pain ADDITIONAL CLINICAL INFORMATION: Ordering Provider Reason For Exam: r/o diverticulitis, pancreatitis, cholecystitis, SBO, perf TECHNIQUE: CT of the abdomen and pelvis was performed following the uneventful administration of 100 mL of Isovue 370 intravenous contrast according to standard protocol. COMPARISON: CT chest abdomen pelvis 08/08/2024 Findings: Lower Chest: Mild bilateral dependent atelectasis is present in the visualized lung bases. Calcified granuloma at the left lung base. Coronary artery calcifications. Liver: Small area of focal steatosis around the falciform ligament. Gallbladder and Bile Ducts: The gallbladder is absent. Spleen: Normal aside from a small granuloma. Pancreas: Normal. Adrenals: Normal. Kidneys: Normal. Gastrointestinal: There is colonic diverticulosis. Fat stranding is seen focally at theleft aspect of the distal sigmoid colon surrounding a thickened diverticula, series 3 image 89. No adjacent peritoneal fluid collections. Thepreviously seen area of fat stranding around the transverse colon has resolved. No small or large bowel dilation. The appendix is not seen; however, no inflammatory changes are seen in the right lower quadrant. Redemonstrateda moderate-large hiatal hernia. Mesentery/Peritoneum/Retroperitoneum: No peritoneal free air. Bladder: Normal. Reproductive Organs: Prostate is enlarged like prior. Vasculature: Redemonstrated chronic thrombus within the inferior vena cava filter andin the bilateral iliac veins below. There is a left iliac veins stent whichis occluded, unchanged. Collateral vessels in the region of the right retroperitoneum are redemonstrated. Bones: Bone windows demonstrate no suspicious lytic or blastic lesions. The visible osseous structures are intact. Degenerative changes are seen inthe spine. Similar grade 1 anterolisthesis of L5 on S1 secondary to chronic bilateral L5 pars defects. Similar trace retrolisthesis of L1 on L2. Soft tissues: Right fat containing inguinal hernia. Right gluteus medius/minimus atrophy. A few radiodensities likely representing calcifications in thesubcutaneous tissues posterior to the left hemipelvis. Impression: 1.Findings are consistent with uncomplicated diverticulitis of thedistal sigmoid colon in the left lower quadrant. 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 3.Redemonstration of a moderate to large hiatal hernia. > Dictated by Yaron Gage MD (vice president process). > Dictated by Director Of Social Work I, Alexis Mccain MD have personally reviewed and interpreted this examination/study. > Interpreting Provider: Alexis Mccain MD on 12/13/2024 8:21 PM Otilia Azul PA-C CT ORDERABLES Final Result * LIPASE BLOOD (12/13/2024 4:09 PM CDT) Lipase 22 8 - 78 U/L 12/13/2024 4:53 PM CDT [facility] Blood BLOOD SPECIMEN / Unknown Venipuncture / Unknown 12/13/2024 4:09 PM CDT 12/13/2024 4:25 PM CDT Narrative [facility] - 12/13/2024 4:53 PM CDT Lipase results from the [employer] Al[employer] analyzer may not be comparable with other methodologies. us Otilia Azul PA-C LAB - CHEMISTRY ORDERABLES Jamial stern Result [address] [address], [facility] [phone] * CT Bone Marrow Biopsy (10/29/2024 1:09 [...] evaluation, please review the evaluation forms in [facility]. For details on monitored clinical parameters during the intra-service sedation time, please review the procedure nurse documentation in [facility]. > Interpreting Provider: Erasmo Brown on [...] samples were collected by the hematology-oncology laborer heading on site. In addition, one core sample [...] 1.Dr. Erasmo Brown M.D., Attending Physician 2.Julio Jayce, MS4 Anesthesia: 1.Local anesthesia - 10 mL [...] samples were collected by the hematology-oncology laborer heading on site. In addition, one core sample [...] sedation on this patient was ordered by , administered intravenously in my presence, and monitored [...] patient evaluation, please reviewthe evaluation forms in [facility]. For details on monitored clinical parameters during the intra-service sedation time, please review the procedurenurse documentation in [facility]. > Interpreting Provider: Erasmo Brown on 10/29/2024 10:55 PM Cindy Garcia MD CT ORDERABLES Final Result * FLOW CYTOMETRY BONE MARROW (10/29/2024 1:05 PM CDT) Case Report Flow Cytometry Case: [id number] Authorizing Provider: Cindy Garcia MD Collected: 10/29/2024 01:05 PM Ordering Location: [facility] Received: 10/29/2024 01:19 PM Pathologist: Daniela Bronson MD Specimen: Bone Marrow 11/04/2024 11:17 AM CDT [facility] Addendum 1 Minimal residual disease flow cytometry performed at [facility] is negative for an abnormal myeloid progenitor population at 0.033% of nucleated cells: Increased CD5, increased CD15, increased CD33, increased CD34, increased CD56, dim CD64, increased CD117, increased HLA-DR, increased CD123. 11/04/2024 11:17 AM CDT [facility] Addendum electronically signed by Guillermo Brown MD on 11/04/2024 at 1117 CDT Final Diagnosis Bone marrow, flow cytometric immunophenotyping: - 0.4% myeloblasts identified in a markedly paucicellular specimen; minimal residual disease (MRD) flow cytometry pending with addendum to follow - No significant B-cell population or immunophenotypic evidence of a plasma cell neoplasm 11/04/2024 11:17 AM T [facility] at 0915 CDT [...] specimen has been reviewed for senior quality assurance analyst purposes. Please correlate with morphologic review of the bone marrow ([id number]). 11/04/2024 11:17 AM CDT [facility] Flow Cytometry Results Differential Result Comment Flow Cell Count /uL 840 Total Viability % 95.0 Lymphocytes % 54 Dim CD45 Region % 6 Monocytes % 4 Granulocytes % 36 11/04/2024 11:17 AM [facility] Reason for test Acute myeloid leukemia 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) 11/04/2024 11:17 AM [facility] Client Specimen ID # [id number] 11/04/2024 11:17 AM [facility] Number of markers 19 were performed. A-2 Flow CD10 A-3 Flow CD13 A-5 Flow CD20 A-11 Flow CD2 A-13 Flow CD14 A-16 Flow CD117 A-17 Flow CD11b A-18 Flow CD11c A-1 Flow CD5 A-4 Flow CD19 A-6 Flow CD33 A-7 Flow CD34 A-8 Flow CD45 A-12 Flow CD7 A-14 Flow CD56 A-15 Flow CD64 A-9 [place]+CD19+ A-10 L[place]+CD19+ A-19 Flow HLA-DR 11/04/2024 11:17 AM [facility] Pathologist Location at [facility] 11/04/2024 11:17 AM [facility] Disclaimer Test performed at [facility], [address] [place] [address], [id number]. *The established laboratory minimum viability is 70%. [...] high complexity clinical testing. 11/04/2024 11:17 AM [facility] Embedded Images 11:17 AM [facility] Pathology/Cytolo gy BONE MARROW SPECIMEN / Unknown Collection / Unknown 10/29/2024 1:05 PM CDT 10/29/2024 1:19 PM CDT Cindy Garcia MD LAB - PATHOLOGY/CYTOLOGY ORDERAB LES Edited Result - Final [facility] [address] [place] [id number], [facility] [phone] * BONE MARROW BIOPSY (STL) (10/29/2024 1:05 PM CDT) Case Report Bone Marrow Patholog y Report Case: [id number] Authorizing Provider: Cindy Garcia MD Collected: 10/29/2024 01:05 PM Ordering Location: 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 10/30/2024 3:20 PM CDT [facility] Peripheral Smear Description Not provided 10/30/2024 3:20 PM CDT [facility] Bone Marrow Aspirate [...] stain): no ring sideroblasts. 10/30/2024 3:20 PM [facility] Bone Marrow Core Biopsy and [...] similar to core biopsy. 10/30/2024 3:20 PM [facility] [facility] Flow Cytometry Summary Bone marrow, flow cytometric immunophenotyping ([id number]): - 0.4% myeloblasts identified in a markedly paucicellular specimen; minimal residual disease (MRD) flow cytometry pending with addendum to follow - No significant B-cell population or immunophenotypic evidence of a plasma cell neoplasm 10/30/2024 3:20 PM [facility] Clinical History AML without having achieved remission 10/30/2024 3:20 PM [facility] Gross Description The requisition and [...] in cassette B1. DF 10/30/2024 3:20 PM [facility] Microscopic Description Immunohistochemistry and special [...] population is not appreciated. 10/30/2024 3:20 PM CDT [facility] Pathologist Location at [facility] 10/30/2024 3:20 PM CDT [facility] Disclaimer The performance characteristics of all immunohistochemical and indirect immunofluorescence stains (if any) cited in this report were determined by the Histopathology Laboratory of [facility]. Some of these tests were developed by [...] attending (teaching) pathologist. 10/30/2024 3:20 PM CDT [facility] Embedded Images 10/30/2024 3:20 PM CDT [facility] Pathology/Cytology PERIPHERAL BLOOD [...] LAB - PATHOLOGY/CYTOLOGY ORDERAB LES Final Result [facility] [address] [place] [address], [facility] [phone] * LAB MISC TEST (NOT BLOOD) (10/29/2024 1:05 PM CDT) Only the most recent of2 resultswithin the time period is included. [facility] Test Name Comprehensive AML Panel + CEP8 + [id number] 11/05/2024 11:[address] [facility] NON INTERF Test Result See Scanned Report 11/05/2024 11:[address] [facility] NON INTERF Comment Ref Lab [facility] 11/05/2024 11:[address] [facility] NON INTERF Other BONE MARROW SPECIMEN / Unknown Collection / Unknown 10/29/2024 1:05 PM CDT 10/29/2024 1:59 PM CDT us Cindy Garcia MD LAB - BODY FLUID ORDERABLES Jamila stern Result [facility] NON INTERF [address] [place] [address], [facility] [phone] * CHROMOSOME ANALYSIS BONE MARROW PANEL (10/29/2024 1:05 PM CDT) [facility] Chromosome Analysis Bone Marrow See Note Normal 11/09/2024 11:16 AM CDT [facility] ([facility]) Comment: Test Performed: Chromosome Analysis Specimen [...] reviewed and approved by Margaret Roberson, PhD, [facility] This result has been reviewed and approved by Emily Street MD A portion of this analysis was performed at the following location(s): [facility] Site CG-TN#1 INTERPRETIVE INFORMATION: Chromosome Analysis, Bone Marrow This test was developed and its performance characteristics determined by [facility]. It has not been cleared or approved by the [place] Food and Drug Administration. This test was performed in a CLIA certified laboratory and is intended for clinical purposes. [facility] Chromosome Analysis Bone Marrow See Note 11/09/2024 11:16 AM CDT [facility] ([facility]) Comment: Authorized individuals can access the [facility] Enhanced Report with an [facility] Connect account using the following link. Your local lab can assist you in obtaining the patient report if you don't have a Connect account. [email or web address] Performed By: [facility] [address] [place] [address] Outcomes Specialist: Uche Morley MD, PhD CLIA Number: [id number] Bone marrow BONE MARROW SPECIMEN / Unknown 10/29/2024 1:05 PM CDT 10/29/2024 1:19 PM CDT Cindy Garcia MD LAB - PATHOLOGY/CYTOLOGY ORDERAB LES Final Result [facility]) [address] [place] [address], [facility] * (ABNORMAL) PLATELET COUNT AUTO (10/29/2024 11:46 AM CDT) Pathologist [facility] Platelet Count 41(L) 150 - 420 x10E9/L 10/29/2024 12:[address] [facility] Blood BLOOD SPECIMEN / Unknown Venipuncture / Unknown 10/29/2024 11:46 AM CDT 10/29/2024 11:53 AM CDT Bridgette Huortino SSN/SSBN ASSISTANT NAVIGATOR-PACKAGING INSPECTOR LAB - HEMATOL OGY ORDERABLES Final Result [facility] [address] [place] [address], [place] [phone] from Last 3 Months Insurance [employer] MEDICARE ADV Advance Directives * Full Code (Latest Code Status on File) Date Activated Date Inactivated Comments 12/13/2024 11:41 PM 12/15/2024 5:11 PM * Full Code Date Activated Date Inactivated Comments 08/08/2024 4:19 PM 08/11/2024 7:29 PM * Full Code Date Activated Date Inactivated Comments 03/13/2024 9:41 PM 03/23/2024 2:56 PM Care Teams Law Office Receptionist Relationship Specialty Start Date End Date Timothy Banks MD [address] [place] [address] PCP - General 10/19/18 Cindy Garcia MD [address] [place] [address] Special Education Superintendent/Oncologis t Hematology and Oncology 03/24/24
[2025-01-03 09:33] LABS: Hematocrit 37.7 % (42.0-52.0); Hemoglobin 11.9 g/dL (14.0-18.0); Immature Granulocyte Percent A 9.7 % (0-0.5); Immature Platelet Fraction Pct 12.1 % (0.9-11.2); Lymphocytes Absolute Auto 0.70 K/mm3 (0.9-3.2); Mean Corpuscular HGB Conc 31.6 g/dl (32-36); Mean Corpuscular Hemoglobin 35.1 pg (26-34); Mean Corpuscular Volume 111.2 fl (80-100); Nucleated Red Blood Cells Absolute Auto 0.000 K/mm3 (0.0-0.012); Nucleated Red Blood Cells Perc 0.0 % (0.0-0.2); Platelet Count Result 105 k/mm3 (150-375); Red Blood Count 3.39 M/mm3 (4.6-6.20)
[2025-01-03 10:00] LABS: White Blood Count 1.7 K/mm3 (4.5-10.0)
[2025-01-03 10:02] LABS: Schistocytes None Seen
[2025-01-03 10:05] LABS: Anisocytosis 1+; Macrocytosis 1+ (NORMAL)
[2025-01-03 13:33] LABS: Alanine Aminotransferase 24 U/L (6-50); Albumin Level 4.2 g/dL (3.5-5.1); Alkaline Phosphatase 100 U/L (38-126); Anion Gap 7 mmol/L (4-12); Aspartate Amino Transferase 75 U/L (17-59); Bilirubin,Total 0.4 mg/dL (0.2-1.3); Blood Urea Nitrogen 20 mg/dL (9-20); Calcium 9.0 mg/dL (8.4-10.2); Carbon Dioxide 27 mmol/L (22-30); Chloride 107 mmol/L (98-107); Estimated Glomerular Filt Rate 53; Glucose 123 mg/dL (65-110); Potassium 4.7 mmol/L (3.4-5.0); Sodium 141 mmol/L (137-145); Total Protein 6.8 g/dL (6.3-8.2)
== END 2025-01-03 09:13 | disposition home or self-care (01) ==
LOC: ANHLAB 09:13
PROVIDERS: PCP Family Medicine
DX: C92.01 Acute myeloblastic leukemia, in remission (principal)
CPT/HCPCS: 36415; 80053; 85025; 85055